=== PATIENT | female | born 1965 | race Caucasian/White ===

== ENCOUNTER 2023-03-09 19:57 | Outpatient (OUT) | payer BC, SELFPAY ==
--- NOTE | 2023-03-09 20:01 | US_ITS ---
[address] [address] Patient Name: JOSE ALBERTO SALEEM MRN: [id number] date: 1965 Sex: F Assigned Patient Location: US Current Patient Location: US Accession/Order Number: [id number] Exam Date: 03/09/2023 20:02 Report Date: 03/12/2023 15:21 At the request of: ASHLEY GRIGSBY Procedure: US pelvis transvaginal EXAMINATION: US pelvis transvaginal HISTORY: R10.2 PELVIC AND PERINEAL PAIN COMPARISON: Ultrasound pelvis 03/24/2015 TECHNIQUE: Transabdominal and/or transvaginal sonographic examination was performed as indicated by examination type. FINDINGS: UTERUS: Heterogeneous lobular appearance of the uterus, likely multiple leiomyomas. Several prominent calcifications within the myometrium. Uterus size: 5.9 x 3.8 x 4.9 cm ENDOMETRIUM: Normal homogeneous appearance. Endometrial thickness: 7 mm RIGHT OVARY: Normal size and appearance. Duplex Doppler demonstrates normal waveform and flow; resistive index 0.7. Ovary size: 2.9 x 1.3 x 1.6 cm LEFT OVARY: Not seen. No suspicious adnexal findings. CUL-DE-SAC: Unremarkable. No significant free fluid. BLADDER: Unremarkable. OTHER: None. IMPRESSION: 1. Heterogeneous lobular uterus containing calcifications, likely multiple leiomyomas. Findings are slightly progressed compared to 2014. Electronically authenticated by: RONAN TORIBIO Date: 03/12/2023 15:21
== END 2023-03-09 19:58 ==
LOC: US 19:58
PROVIDERS: PCP Family Medicine; Visit Provider Family Medicine
DX: R10.2 Pelvic and perineal pain (principal); N85.8 Other specified noninflammatory disorders of uterus
CPT/HCPCS: 76830

== ENCOUNTER 2023-11-13 11:45 | Outpatient (OUT) | payer BC, SELFPAY ==
[2023-11-13 12:36] LABS: Basophils Percent Auto 0.6 % (0.2-2.0); Eosinophils Absolute Auto 0.2 10^3/uL (0.0-0.7); Eosinophils Percent Auto 3.9 % (0.9-7.0); Hematocrit 46.2 % (36.0-48.0); Hemoglobin 14.7 g/dL (12.0-16.0); Immature Granulocytes Abs Auto 0.01 10^3/uL (0.00-0.03); Immature Granulocytes Pct Auto 0.2 % (0.0-0.5); Lymphocytes Absolute Auto 1.4 10^3/uL (1.2-3.8); Lymphocytes Percent Auto 29.2 % (20.5-60.0); Mean Corpuscular HGB Conc 31.8 g/dL (29.9-35.2); Mean Corpuscular Volume 94.3 fL (81.0-99.0); Mean Platelet Volume 9.5 fL (9.5-13.5); Monocytes Absolute Auto 0.5 10^3/uL (0.3-0.8); Monocytes Percent Auto 11.2 % (1.7-12.0); Neutrophils Absolute Auto 2.6 10^3/uL (1.4-6.5); Neutrophils Percent Auto 54.9 % (43.0-75.0); Platelet Count 192 10^3/uL (150-450); Red Cell Distribution Width 12.4 % (11.0-15.0); White Blood Count 4.7 10^3/uL (4.0-11.0)
[2023-11-13 12:42] LABS: Bilirubin Urine NEGATIVE (NEGATIVE); Blood Urine NEGATIVE (NEGATIVE); Clarity Urine CLEAR (CLEAR); Color Urine LT. YELLOW (YELLOW); Glucose Urine UA NEGATIVE (NEGATIVE); Ketones Urine TRACE mg/dL (NEGATIVE); Leukocyte Esterase Urine LARGE (NEGATIVE); Nitrite Urine NEGATIVE (NEGATIVE); Protein Urine NEGATIVE (NEG/TRACE); Specific Gravity Urine 1.015 (1.005-1.025); Urobilinogen Urine 0.2 EU/dL (0.2-1.0)
[2023-11-13 12:51] LABS: Bacteria Urine TRACE #/HPF (NONE SEEN)
[2023-11-13 12:52] LABS: Mucus Urine NONE SEEN (NONE SEEN); Squamous Epithelial Cell Urine FEW #/LPF (NONE/RARE)
[2023-11-13 12:53] LABS: Cast Seen? NONE SEEN #/LPF (NONE SEEN); Crystals Seen? None Seen #/HPF (None Seen); Urine Culture Indicated ALREADY ORDERED
[2023-11-13 13:31] LABS: Estimated Average Glucose 97 mg/dL
[2023-11-13 14:03] LABS: Alanine Aminotransferase 95 U/L (14-59); Albumin Globulin Ratio 1.1; Albumin Level 3.9 g/dL (3.4-5.0); Alkaline Phosphatase 89 U/L (46-116); Anion Gap 10.4; Aspartate Amino Transferase 52 U/L (15-37); BUN Creatinine Ratio 29.7; Bilirubin Total 0.4 mg/dL (0.2-1.0); Calcium 9.4 mg/dL (8.5-10.1); Carbon Dioxide 33.3 mmol/L (21.0-32.0); Chloride 104 mmol/L (98-107); Chol HDL Ratio 2.8; Cholesterol 147 mg/dL (<=200); Estimated GFR (African America >60 (>=60); Estimated GFR (Non-African Ame >60 (>=60); Free T3 2.98 pg/mL (2.18-3.98); Globulin 3.5 g/dL; Glucose 92 mg/dL (74-106); HDL Cholesterol 53 mg/dL (40-60); Potassium 3.7 mmol/L (3.5-5.1); Sodium 144 mmol/L (136-145); Thyroid Stimulating Hormone 2.634 uIU/mL (0.358-3.740); Total Protein 7.4 g/dL (6.4-8.2); Triglycerides 196 mg/dL (<=150); VLDL CHOLESTEROL 39.2 mg/dL
[2023-11-14 11:08] LABS: Insulin 16.9 uIU/mL (2.6-24.9)
== END 2023-11-13 11:46 | disposition home or self-care (01) ==
LOC: LAB 11:47
PROVIDERS: PCP Family Medicine; Visit Provider Family Medicine
DX: R10.9 Unspecified abdominal pain (principal); I10 Essential (primary) hypertension; K21.9 Gastro-esophageal reflux disease without esophagitis; E78.5 Hyperlipidemia, unspecified; I25.10 Atherosclerotic heart disease of native coronary artery without angina pectoris; R73.9 Hyperglycemia, unspecified; D64.9 Anemia, unspecified; E55.9 Vitamin D deficiency, unspecified
CPT/HCPCS: 36415; 80053; 80061; 81001; 82306; 83036; 83525; 83540; 84436; 84443; 84481; 85025; 87086

== ENCOUNTER 2024-01-19 11:29 | Outpatient (OUT) | payer BC, SELFPAY ==
--- OUTSIDE RECORDS SUMMARY | 2024-01-19 11:35 | XMS_ITS | CCD ---
Author Organization [facility] Care Team Providers Care Biodiesel Process Control Technician Name Role Phone UNKNOWN, PROVIDER Unavailable Unavailable ASHLEY DEJESUS Unavailable Unavailable UNKNOWN, PROVIDER Unavailable Unavailable ASHLEY DEJESUS Unavailable Unavailable Ashlye Dejesus Primary Care Provider [phone] Ashley Dejesus Unavailable Unavailable Unavailable Ashley Dejesus MD Primary Care Provider [phone] Unavailable Unavailable Ashley Dejesus Primary Care Physician DR RAMANDEEP GARIBAY Admitting Unavailclaire GARIBYA, DR RAMANDEEP Orozco Attending Unavailclaire DEJESUS, DR RAMIREZ Primary Care Unavailable KELLY, DR RAMANDEEP Orozco Consulting Unavailclaire DEJESUS, DR RAMIREZ Primary Care Unavailable DR ASHLEY DEJESUS Admitting Unavailable ANJELICA, DR RAMIREZ Attending Unavailable DR ASHLEY DEJESUS Consulting Unavailable ZIEBER, DR RONAN Guzman Consulting Unavailable PHANI HUERTA Consulting Unavailable HAYES, INGA Consulting Unavailable MISC, DR MORALES Admitting Unavailable MISC, DR MORALES Attending Unavailable DR ASHLEY DEJESUS Primary Care Unavailable DR ASHLEY DEJESUS Consulting Unavailable DR ASHLEY DEJESUS Admitting Unavailable DR ASHLEY DEJESUS Attending Unavailable DR ASHLEY DEJESUS Primary Care Unavailable DR ASHLEY DEJESUS Consulting Unavailable ANJELICA, DR RAMIREZ Admitting Unavailable ANJELICA, DR RAMIREZ Attending Unavailable DR ASHLEY DEJESUS Primary Care Unavailable DR ASHLEY DEJESUS Consulting Unavailable MD Ashley Dejesus Primary Care Provider [phone] MD Evert Bruno Attending Provider Evert Bruno Unavailable MD Ashley Dejesus Primary Care Provider [phone] MD Evert Bruno Attending Provider Asaad, Imad Attending Unavailable Asaad, Imad Admitting Unavailable HoDeacon jaralas M Primary Care Unavailable Asaad, Imad Attending Unavailable Asaad, Imad Admitting Unavailable HoAshley jara Primary Care Unavailable Asaad, Imad Attending Unavailable Asaad, Imad Admitting Unavailable HoAshley jara M Primary Care Unavailable Asaad, Imad Attending Unavailable Ashley Dejesus Primary Care Unavailable Asaad, Imad Admitting Unavailable Ashley Dejesus MD Primary Care Provider [phone] GABY CHAHAL Admitting Unavail able GABY CHAHAL Attending Unavail able ASHLEY DEJESUS Primary Care Unavailable ASHLEY DEJESUS Primary Care Unavailable Ashley Dejesus MD Primary Care Provider [phone] RAMANDEEP GARIBAY Attending Unavailable ASHLEY DEJESUS Primary Care Unavailable ALINA JAVIER Attending Unavailable JENNIFER MARTINO Attending Unavailable STEPHANIE BERGER Attending Unavailable ASHLEY DEJESUS Referring Unavailable ASHLEY DEJESUS Primary Care Unavailable Allergies Allergy Classification Reported Allergen(s) Allergy Type Date of Onset Reaction(s) Facility (20 sources) Baclofen; 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: [Baclofen TABS] Drug Allergy 017 Other (See Comments), Shortness of breath [place] (14 sources) Latex; 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: [LATEX] Propensity to adverse reactions to drug 006 Anaphylaxis, Shortness Of Breath, Anaphylaxis (disorder) [place] (9 sources) Penicillins; 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: [penicillins] Propensity to adverse reactions to drug 006 Hives, Anaphylaxis (disorder) [place] (3 sources) rosuvastatin Drug Allergy 019 [place] (19 sources) Sulfamethoxazole / Trimethoprim; 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: [Bactrim TABS] Drug Allergy 019 Hives [place] (11 sources) natural latex rubber Allergy to substance (finding) Shortness of breath [facility] 250 DO Work Phone: (11 sources) Penicillins; 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: [Penicillins] Allergy to drug (finding) Rash [facility] 250 DO Work Phone: (13 sources) rosuvastatin; 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: [Crestor TABS] Drug Allergy 023 Elevated liver enzymes level (finding), Other [facility] (13 sources) Sulfonamides (Antibiotic); 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: [Sulfa Drugs] Allergy to drug (finding) [facility] (7 sources) levoFLOXacin; 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: [levofloxacin] Drug Allergy 017 Other (See Comments), Candidiasis (disorder) [employer] Work Phone: (3 sources) Phenazopyridine; 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: [PHENAZOPYRIDINE HCL] Drug Allergy [employer] Work Phone: (2 sources) Simvastatin Drug Allergy 006 [employer] Phone: (2 sources) Sulfonamides (Antibiotic) Propensity to adverse reactions to drug 022 Other (See Comments) [employer] (3 sources) Tobramycin; 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: [tobramycin] Drug Allergy 023 Eruption of skin (disorder) [facility] (1 source) Baclofen Drug Allergy [facility] (1 source) Latex Drug allergy (disorder) [facility] (5 sources) levoFLOXacin; 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: [Levaquin] Drug Allergy thrush [facility] (1 source) Penicillins Drug allergy (disorder) [facility] (1 source) rosuvastatin Drug Allergy [facility] (1 source) Sulfonamides (Antibiotic) Drug allergy (disorder) [facility] (7 sources) rosuvastatin; 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: [rosuvastatin] Drug Allergy 017 Gastrointestinal Upset [facility] (4 sources) Sulfamethoxazole; 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: [sulfamethoxazole] Drug Allergy [facility] (5 sources) Trimethoprim; 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: [trimethoprim] Drug Allergy 023 [facility] (4 sources) Fenofibrate Drug Allergy 023 ([place]) [facility] (3 sources) Penicillin Drug Allergy ([place]) 08/08/2011 [employer] Other (4 sources) Substance with sulfonamide structure and antibacterial mechanism of action (substance) Drug allergy 023 Shortness of breath [employer] Other (1 source) Baclofen Drug Allergy 023 [facility] Repository (1 source) Latex Drug allergy (disorder) [facility] (1 source) levoFLOXacin Drug Allergy 023 [facility] (1 source) Penicillins Drug allergy (disorder) 023 [facility] (2 sources) Penicillins Propensity to adverse reactions to drug Hives, Rash [facility] ([facility] Tobramycin Drug Allergy 023 Rash [facility] (2 sources) Sulfonamides (Antibiotic); 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: [SULFA (SULFONAMIDE ANTIBIOTICS)] Propensity to adverse reactions to drug (disorder) [facility] 3 Repository (1 source) Fenofibrate; 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: [FENOFIBRATE MICRONIZED] Drug Allergy 009 [facility] Repository Medications Current Medications Medication Drug Class(es) Dates Sig (Normalized) Sig (Original) atorvastatin 20 mg oral tablet (18 sources) HMG-CoA Reductase Inhibitor Start: 10-27-2019 take 1 tablet by mouth once daily atorvastatin (Lipitor) 20 mg tablet Take 1 tablet (20 mg) by mouth once daily. 0 12/11/2020 Active take 1 tablet by mouth at bedtim e Lipitor 40 MG 1 tablet Orally at hs for 30 day(s) Active Bariatric Multivitamins with 45 mg Iron (1 source) Start: 06-02-2022 Bariatric Mult ivitamins with 45 mg Iron Oral, Daily, Refill(s) 0 Start Date: 06/02/22 Status: Ordered Calcium Carbonate (6 sources) take 1 tablet by mouth once daily calcium carbonate (CALCIUM 500 ORAL) Take 1 tablet by mouth once daily. 0 Active take 1 tablet by gavin th three times daily at mealtime calcium carbonate 1500 (600 Ca) MG TABS tablet Take 500 mg by mouth 3 times daily (with meals) 0 Active take 1 tablet by mouth every twe lve hours Calcium 600 MG 1 tablet with meals Orally Twice a day for 30 day(s) Active calcium chloride 0.0014 meq/ml / potassium chloride 0.004 meq/ml / sodium chloride 0.103 meq/ml / sodium lactate 0.028 meq/ml injectable solution (1 source) Start: 06-18-2023 lactated ringe rs IV soln infusion cevimeline 30 mg oral capsule (19 sources) Cholinergic Receptor Agonist Start: 11-03-2020 take 1 capsule by mouth three times daily Cevimeline HCl - 30 MG Oral Capsule TAKE 1 CAPSULE 3 TIMES DAILY. Quantity: 0 Refills: 0 Ordered: 03-Nov-2020 DO Start : 03-Nov-2020 Active Start: 10-27-2019 take 1 mg by mouth t hree times daily cevimeline See Instructions, mg Oral TID, Refills(s) 0 Start Date: 10/27/19 Status: Ordered Start: 04-17-2018 take 1 capsule by [facility] four times daily cevimeline (Evoxac) 30 mg capsule Take by mouth 4 times a day. 0 11/03/2020 Active take 25 mg by mouth three times daily CEVIMELINE HCL PO Take 25 mg by mouth 3 times daily 0 Active citalopram 10 mg oral tablet (5 sources) Serotonin Reuptake Inhibitor Start: 11-01-2022 take 10 mg by mouth once daily Citalopram Active 10 MG PO Daily November 01, 2022 1:00am take 1 tablet by mouth once milan y citalopram (CeleXA) 20 mg tablet Take 1 tablet (20 mg) by mouth once daily. 0 Active take 2 tablets by mouth once sudeep ly citalopram (CELEXA) 10 MG tablet Take 2 tablets by mouth daily 0 Active diclofenac sodium 0.03 mg/mg topical gel (14 sources) Nonsteroidal Anti-inflammatory Drug Start: 12-28-2020 diclofenac sodium 3 % gel twice a day. 0 12/28/2020 Active Start: 12-28-2020 Diclofenac Sod ium 3 % External Gel APPLY SPARINGLY TO THE AFFECTED AREA(S) TWICE DAILY. Quantity: 0 Refills: 0 Ordered: 28-Dec-2020 DO Start : 28-Dec-2020 Active docusate sodium 100 mg oral capsule (12 sources) take 1 capsule by mouth twice daily docusate sodium (Colace) 100 mg capsule Take 1 capsule (100 mg) by mouth 2 times a day. 0 Active ergocalciferol 1.25 mg oral capsule (3 sources) Provitamin D2 Compound Start: 05-26-20 take 1 capsule by mouth two times weekly Vitamin D (Ergocalciferol) 92001 UNIT 1 capsule Orally TWICE a Week for 90 day(s) May, Active fluticasone propionate 0.05 mg/actuat metered dose nasal spray (16 sources) Corticosteroid Start: 11-01-19 Fluticasone Propionate Active 1 SPRAY INTRANASAL Daily November 01, 2022 1:00am Start: 11-26-2020 take 1 spray(s) nasa l route twice daily fluticasone (Flonase) 50 mcg/actuation nasal spray Administer 1 spray into affected nostril(s) 2 times a day. 0 11/26/2020 Active Start: 11-26-2020 take 1 spray(s) nasa l route twice daily Fluticasone Propionate 50 MCG/ACT Nasal Suspension USE 1 SPRAY IN EACH NOSTRIL TWICE DAILY. Quantity: 0 Refills: 0 Ordered: 26-Nov-2020 DO Start : 26-Nov-2020 Active Start: 04-30-2020 fluticasone 0. 05 mg/inh Nasal [place] Refill(s) 0 Start Date: 04/30/20 Status: Ordered furosemide 40 mg oral tablet (3 sources) Loop Diuretic take 1 tablet by mouth every twenty-four hours Lasix 40 MG 1 tablet Orally Once a day for 30 day(s) Active hydroCHLOROthiazide 12.5 mg oral tablet (16 sources) Thiazide Diuretic Start: 2022 take 6.26 mg by mouth once daily Hydrochlorothiazide Active 6.26 MG PO Daily November 01, 2022 1:00am Start: 12-11-2020 take 0.5 tablet by m outh once daily hydroCHLOROthiazide (HYDRODiuril) 12.5 mg tablet Take 0.5 tablets (6.25 mg) by mouth once daily. 0 12/11/2020 Active Start: 12-11-2020 take 1 tablet by gavin th once daily hydrochlorothiazide 12.5 mg Tab 12.5 mg = 1 tab(s), Oral, Daily, # 90 tab(s), Refills(s) 3, Pharmacy: [facility], 160, cm, 05/27/21 8:19:00 EDT, Height/Length Dosing, 61, kg, 05/27/21 8:19:00 EDT, Weight Dosing Start Date: 10/07/21 Status: Ordered ketorolac tromethamine 10 mg oral tablet (1 source) Nonsteroidal Anti-inflammatory Drug, Cyclooxygenase Inhibitor Start: 06-18-2023 End: 06-17-2024 take 1 tablet by mouth every six hours as needed for pain ketorolac (TORADOL) 10 MG tablet Take 1 tablet by mouth every 6 hours as needed for Pain 10 tablet 0 06/18/2023 06/17/2024 Active lisinopril 2.5 mg oral tablet (3 sources) Angiotensin Converting Enzyme Inhibitor take 1 tablet by mouth every twenty-four hours Lisinopril 2.5 MG 1 tablet Orally Once a day for 30 day(s) Active metFORMIN hydrochloride 500 mg oral tablet (3 sources) Biguanide Start: 11-14-2011 take 1 tablet by mouth twice daily Glucophage XR 500 MG 1 tablet Orally twice a days for 90 days Nov, Active 2 ml metoclopramide 5 mg/ml prefilled syringe (1 source) Dopamine-2 Receptor Antagonist Start: 06-18-2023 End: 06-19-2023 10 mg, IntraVENous, ONCE PRN, 1 dose, Starting on Sun06/18/23 at 1449, Until Sun06/19/23 at 1449, Nausea Secondary antiemetic therapy. PACU only mometasone furoate 1 mg/ml topical cream (12 sources) Corticosteroid Start: 12-25-2020 mometasone (Elocon) 0.1 % cream twice a day. 0 12/25/2020 Active Start: 12-25-2020 Mometasone Fur oate 0.1 % External Cream APPLY SPARINGLY TO AFFECTED AREAS TWICE DAILY.(AM AND PM). Quantity: 0 Refills: 0 Ordered: 25-Dec-2020 DO Start : 25-Dec-2020 Active montelukast 10 mg oral tablet (3 sources) Leukotriene Receptor Antagonist take 1 tablet by mouth every twenty-four hours Singulair 10 MG 1 tablet in the evening Orally Once a day for 30 day(s) Active Multi Vitamin+ (1 source) Start: 0 Multi Vitamin+ Refill(s) 0 Start Date: 10/27/19 Status: Ordered Multiple Vitamin (MVI, BARIATRIC ADVANTAGE VITABAND, CHEW TAB) (1 source) take 1 tablet by mouth once daily Multiple Vitamin (MVI, BARIATRIC ADVANTAGE VITABAND, CHEW TAB) Take 1 tablet by mouth daily 0 Active Multiple Vitamins-Minerals (PRESERVISION AREDS 2 PO) (1 source) Multiple Vitamins-Minerals (PRESERVISION AREDS 2 PO) Take by mouth 0 Active multivit-min/ferrous fumarate (MULTI VITAMIN ORAL) (1 source) take 1 tablet by mouth twice daily multivit-min/ferr ous fumarate (MULTI VITAMIN ORAL) Take 1 tablet by mouth 2 times a day. 0 Active Qyxurintpfgk-Xwe-Ryr n-Fa-Vit K (Bariatric Multivitamins) 45 mg iron- 800 mcg-120 mcg Capsule (3 sources) Start: 3 take 1 capsule by mouth twice daily Multivitamin-Min- Iron-Fa-Vit K (Bariatric Multivitamins) 45 mg iron- 800 mcg-120 mcg Capsule Active 1 CAP PO Twice daily November 01, 2022 1:00am Start: 11-01-2022 take 1 capsule by [facility] twice daily Sksafwnmrmoo-Pjl-Qkpc-Fa-Vit K (Bariatri c Multivitamins) 45 mg iron- 800 mcg-120 mcg Capsule Active 1 CAP PO Twice daily November 01, 2022 12:00am Multivitamins (3 sources) Multivitamins Or ally daily Active NIFEdipine 60 mg oral tablet (3 sources) Dihydropyridine Calcium Channel Boom take 1 capsule by mouth once daily Procardia 60 mg 1 capsule Orally daily for 30 day(s) Active nitroglycerin 0.4 mg sublingual tablet (16 sources) Nitrate Vasodilator Start: 021 End: 023 nitroglycerin (Nitrostat) 0.4 mg SL tablet Indications: Atherosclerosis of coronary artery of [place] heart without angina pectoris, unspecified vessel or lesion type Place 1 tablet (0.4 mg) under the tongue every 5 minutes if needed for chest pain. 90 tablet 3 08/14/2023 Active Nitrostat 0.4 MG 1 tablet under the tongue Sublingual as directed for 30 day(s) Active nystatin 100 unt/mg topical powder (12 sources) Polyene Antifungal Start: 05-05-2020 nystatin (Nyamy) 100,000 unit/gram powder apply topically to affected area twice a day if needed 0 05/05/2020 Active omega-3 acid ethyl esters (shelter) 1000 mg oral capsule (3 sources) take 2 capsules by mouth every twelve hours Lovaza 1 GM 2 capsules Orally Twice a day for 30 day(s) Active 2 ml ondansetron 2 mg/ml injection (4 sources) Serotonin-3 Receptor Antagonist Start: 06-18-2023 End: 06-19-2023 4 mg, IntraVENous, ONCE PRN, 1 dose, Starting on Sun06/18/23 at 1449, Until Sun06/19/23 at 1449, Nausea Initial antiemetic therapy. PACU only Start: 04-17-2018 End: 04-22-2018 take 1 tablet by mouth every eight hours Ondansetron (Zofran Odt) 8 mg tablet,disintegrating Discontinued 8 MG PO Q8H 10 5 April 17, 2018 12:00am April 22, 2018 12:01am polyethylene glycol 3350 991964 mg / potassium chloride 2970 mg / sodium bicarbonate 6740 mg / sodium chloride 5860 mg / sodium sulfate 85536 mg powder for oral solution (3 sources) Osmotic Laxative Start: 10-24-2022 take 236 g by mouth once Golytely 236 GM as directed Orally the day prior to colonoscopy for 1 days Oct, Active prasugrel 10 mg oral tablet (3 sources) P2Y12 Platelet Inhibitor take 10 mg by mouth once daily effient 10 mg once a day po Active promethazine hydrochloride 25 mg oral tablet (6 sources) Phenothiazine Start: 11-01-2022 take 25 mg by mouth every four hours Promethazine Active 25 MG PO Q4H November 01, 2022 1:00am take 1 tablet by gavin th every twelve hours Promethazine HCl 25 MG 1 tablet as neede d Orally every 12 hrs Active RABEprazole sodium 20 mg delayed release oral tablet (20 sources) Proton Pump Inhibitor Start: 05-27-2021 take 1 mg by mouth once daily rabeprazole 20 mg oral enteric coated tablet mg tab(s), Oral, Daily, Refills(s) 0 Start Date: 05/27/21 Status: Ordered Start: 12-27-2020 RABEprazole So dium 20 MG Oral Tablet Delayed Release Quantity: 180 Refills: 0 Ordered: 27-Dec-2020 DO Start : 27-Dec-2020 Complete Start: 04-17-2018 take 20 mg by mouth twice milan y Rabeprazole Active 20 MG PO Twice daily April 17, 2018 12:00am 5 ml sodium chloride 9 mg/ml injection (9 sources) Start: 06-18-2023 take 1 dose intravenously twice daily 5-40 mL, IntraVENous, EVERY 12 HOURS SCHEDULED (2 times per day), First dose on Sun06/18/23 at 2100, Until Discontinued For Line Patency: Peripheral IV = 5 mL; Midline or Central Line = 10 mL/lumen. If following IV push medication, administer flush at same rate as the IV push. Flush volume is determined by type of infusion therapy being given. For non-viscous solutions use: Peripheral IV = 5 mL Midline or Central Line = 10 mL/lumen For viscous solutions (i.e. blood components, parenteral nutrition, contrast media, or after obtaining blood sample) use: Peripheral IV = 10 mL Midline or Central Line = 20 mL/lumen Pre-op (day of surgery) Start: 06-18-2023 take 1 dose intraven ously twice daily 5-40 mL, IntraVENous, EVERY 12 HOURS SCHEDULED (2 times per day), First dose on Sun06/18/23 at 2100, Until Discontinued For Line Patency: Peripheral IV = 5 mL; Midline or Central Line = 10 mL/lumen. If following IV push medication, administer flush at same rate as the IV push. Flush volume is determined by type of infusion therapy being given. For non-viscous solutions use: Peripheral IV = 5 mL Midline or Central Line = 10 mL/lumen For viscous solutions (i.e. blood components, parenteral nutrition, contrast media, or after obtaining blood sample) use: Peripheral IV = 10 mL Midline or Central Line = 20 mL/lumen PACU only Start: 06-18-2023 sodium chlorid e flush 0.9 % injection 5-40 mL Start: 06-18-2023 IntraVENous, a t 5-250 mL/hr, PRN, if patient receiving piggyback infusions and maintenance fluids are not ordered OR KVO fluids to protect IV site / prevent frequent line interruptions/ long duration, Starting on Sun06/18/23 at 1449 For piggyback infusion, administer at same rate as piggyback for a total of 25 mL. Enter 25 mL into dose field and piggyback rate into rate field of order. If piggyback is infusing at a rate less than 100 mL/hr, enter 25 mL into dose field and 100 mL/hr into rate field of order. For KVO fluids, enter rate of 20 mL/hr or less into rate field of order. PACU only Start: 06-18-2023 take 5-40 mL intrave nously once as needed 5-40 mL, IntraVENous, PRN, Starting on Sun06/18/23 at 1449, Until Discontinued, Line Care, After every IV line use For Line Patency: Peripheral IV = 5 mL; Midline or Central Line = 10 mL/lumen. If following IV push medication, administer flush at same rate as the IV push. Flush volume is determined by type of infusion therapy being given. For non-viscous solutions use: Peripheral IV = 5 mL Midline or Central Line = 10 mL/lumen For viscous solutions (i.e. blood components, parenteral nutrition, contrast media, or after obtaining blood sample) use: Peripheral IV = 10 mL Midline or Central Line = 20 mL/lumen PACU only Start: 06-18-2023 0.9 % sodium c hloride infusion Start: 06-18-2023 sodium chlorid e flush 0.9 % injection 5-40 mL tamsulosin hydrochloride 0.4 mg oral capsule (19 sources) alpha-Adrenergic Boom Start: 10-26-2020 End: 03-09-2023 take 1 capsule by mouth twice daily Flomax 0.4 mg Cap 0.4 mg = 1 cap(s), Oral, BID, X 90 day(s), # 180 cap(s), Refills(s) 3, Pharmacy: [facility], 160, cm, 05/27/21 8:19:00 EDT, Height/Length Dosing, 61, kg, 05/27/21 8:19:00 EDT, Weight Dosing Start Date: 03/14/22 Stop Date: 03/09/23 Status: Ordered Start: 04-17-2018 take 1 capsule by mo [facility] once daily tamsulosin (Flomax) 0.4 mg 24 hr capsule Take 1 capsule (0.4 mg) by mouth once daily. 0 10/26/2020 Active traMADol hydrochloride 50 mg oral tablet (6 sources) Opioid Agonist Start: 11-01-2022 take 50 mg by mouth three times daily Tramadol Active 50 MG PO Three times daily November 01, 2022 1:00am take 1 tablet by [facility] every twenty-four hours traMADol HCl 50 MG 1 tablet as needed Orally Once a day Active ubidecarenone 200 mg oral capsule (3 sources) take 1 capsule by mouth every twenty-four hours Coenzyme Q-10 200 MG 1 capsule with a meal Orally Once a day for 30 day(s) Active vit C/E/Zn/coppr/lutein/zeax an (PRESERVISION AREDS-2 ORAL) (1 source) vit C/E/Zn/coppr/lutei n/zeaxan (PRESERVISION AREDS-2 ORAL) Take by mouth twice a day. 0 Active Vitamin B Complex 1,000 (3 sources) Start: 05-25-2011 Vitamin B Complex 1,000 Orally daily May, Active Vitamin B-12 1000 MCG (2 sources) take 1 tablet by mouth once daily Vitamin B-12 1000 MCG 1 tablet Orally Once a day for 30 day(s) Active vitamin b12 1 mg oral tablet (1 source) Vitamin B12 take 1 tablet by mouth every twenty-four hours Vitamin B-12 1000 MCG 1 tablet Orally Once a day for 30 day(s) Active Zyrtec Hives Relief 10 MG (3 sources) take 1 tablet by mouth once daily Zyrtec Hives Relief 10 MG 1 tablet Orally Once a day for 30 day(s) Active Completed/Discontinued Medications Medication Drug Class(es) Dates Sig (Normalized) Sig (Original) acetaminophen 325 mg oral tablet (1 source) Start: 06-18-2023 End: 06-18-2023 acetaminophen (TYLENOL) tablet 650 mg Start: 06-18-2023 End: 06-18-2023 acetaminophen (TYLENOL) tabl et 650 mg acetaminophen 325 mg / oxyCODONE hydrochloride 5 mg oral tablet (6 sources) Opioid Agonist Start: 04-24-2018 End: 04-29-2018 take 1 tablet by mouth every four to six hours Oxycodone-Acetaminophen Discontinued 1 TAB PO EVERY 4-6 HOURS April 24, 2018 April 29, 2018 12:01am Start: 04-17-2018 take 2 tablets by mo uth every four hours Oxycodone-Acetaminophen (Percocet) 5-325 mg tablet Active 2 TAB PO Q4H April 17, 2018 ascorbic acid 226 mg / beta carotene 83109 unt / cuprous oxide 0.8 mg / dl-alpha tocopheryl acetate 200 unt / zinc oxide 34.8 mg oral capsule (11 sources) Vitamin C take 2 capsules by mouth twice daily PreserVision AREDS Oral Capsule TAKE 2 CAPSULE Twice daily Quantity: 0 Refills: 0 Ordered: 17-Aug-2021 DO Active aspirin 81 mg delayed release oral tablet (20 sources) Platelet Aggregation Inhibitor, Nonsteroidal Anti-inflammatory Drug Start: 0 take 1 tablet by mouth once daily Aspirin Low Dose 81 MG Oral Tablet Delayed Release take 1 tablet by mouth once daily Quantity: 90 Refills: 3 Ordered: 10-Oct-2022 Ramandeep Garibay DO Start : 05-Oct-2022 Active Start: 10-27-2019 aspirin 81 mg, Refills(s) 0 Start Date: 10/27/19 Status: Ordered take 1 tablet by gavin every twenty-four hours Aspirin 81 mg 1 tablet Orally Once a day for 30 day(s) Active ASPIRIN 81 PO Ta ke by mouth 0 Active Calcium (8 sources) Phosphate Binder, Calcium Calcium TABS TAKE 1 TABLET 3 times daily Quantity: 0 Refills: 0 Ordered: 15-Aug-2022 DO Active carvedilol 6.25 mg oral tablet (8 sources) alpha-Adrenergic Boom, beta-Adrenergic Boom Start: 11-03-2020 Carvedilol 6.25 MG Oral Tablet Quantity: 180 Refills: 0 Ordered: 03-Nov-2020 DO Start : 03-Nov-2020 Complete Start: 04-17-2018 End: 11-01-2022 take 25 mg by mouth twice daily Carvedilol Discontinue d 25 MG PO Twice daily April 17, 2018 12:00am November 01, 2022 11:47am take 1 tablet by gvain th every twelve hours Carvedilol 12.5 MG 1 tablet with food Orally Twice a day for 30 day(s) Active cephalexin 500 mg oral capsule (3 sources) Cephalosporin Antibacterial Start: 04-17-2018 End: 04-24-2018 take 1 capsule by mouth twice daily Cephalexin (Keflex) 500 mg capsule Discontinued 500 MG PO Twice daily 14 April 17, 2018 12:00am April 24, 2018 12:01am dimenhyDRINATE 50 mg oral tablet (1 source) Start: 06-18-2023 End: 06-18-2023 dimenhyDRINATE (DRAMAMINE) tablet 50 mg Start: 06-18-2023 End: 06-18-2023 dimenhyDRINATE (DRAMAMINE) t ablet 50 mg doxycycline hyclate 100 mg oral tablet (1 source) Tetracycline-class Drug Start: 10-18-2020 take 1 tablet by mouth twice daily, then take 1 tablet by mouth once daily Doxycycline Hyclate 100 MG Oral Tablet take 1 tablet by mouth twice a day for 14 days then 1 tablet once daily for 14 days Quantity: 42 Refills: 0 Ordered: 18-Oct-2020 DO Start : 18-Oct-2020 Complete fenofibric acid 135 mg delayed release oral capsule (3 sources) Peroxisome Proliferator Receptor alpha Agonist take 1 capsule by mouth every twenty-four hours Trilipix 135 MG 1 capsule Orally Once a day for 30 day(s) Not-Taking 2 ml fentaNYL 0.05 mg/ml injection (2 sources) Opioid Agonist Start: 06-18-2023 50 mcg, IntraVENous, EVERY 5 MIN PRN, 2 doses, Starting on 06/18/23 at 1449, Until Discontinued, Pain Severe (7-10) For Phase I. If Phase II oral narcotics have been administered in the last 60 minutes, do not administer IV narcotics unless specifically approved by provider. PACU only Start: 06-18-2023 25 mcg, IntraV ENous, EVERY 5 MIN PRN, 2 doses, Starting on 06/18/23 at 1449, Until Discontinued, Pain Moderate (4-6) For Phase I. If Phase II oral narcotics have been administered in the last 60 minutes, do not administer IV narcotics unless specifically approved by provider. PACU only fluconazole 100 mg oral tablet (1 source) Azole Antifungal Start: 11-17-2020 take 1 tablet by mouth once daily Fluconazole 100 MG Oral Tablet take 1 tablet by mouth once daily Quantity: 10 Refills: 0 Ordered: 17-Nov-2020 DO Start : 17-Nov-2020 Complete hydrocortisone 10 mg/ml / neomycin 3.5 mg/ml / polymyxin b 62126 unt/ml ophthalmic suspension (3 sources) Aminoglycoside Antibacterial, Polymyxin-class Antibacterial, Corticosteroid Start: 06-13-2021 take 2 drop(s) into the eye(s) four times daily Neomycin-Polymyxin- HC 3.5-48139-4 Ophthalmic Suspension instill 2 drops INTO AFFECTED EYE four times a day Quantity: 8 Refills: 0 Ordered: 14-Jun-2021 DO Start : 13-Jun-2021 Active levoFLOXacin 750 mg oral tablet (1 source) Quinolone Antimicrobial Start: 11-17-2020 take 1 tablet by mouth once daily levoFLOXacin 750 MG Oral Tablet take 1 tablet by mouth once daily for 10 days Quantity: 10 Refills: 0 Ordered: 17-Nov-2020 DO Start : 17-Nov-2020 Complete Multi Vitamin Oral Tablet (11 sources) take 1 tablet by mouth twice daily Multi Vitamin Oral Tablet Take 1 tablet twice daily Quantity: 0 Refills: 0 Ordered: 17-Aug-2021 DO Active nitrofurantoin, macrocrystals 25 mg / nitrofurantoin, monohydrate 75 mg oral capsule (3 sources) Nitrofuran Antibacterial Start: 04-24-2018 End: 11-01-2022 take 1 capsule by mouth twice daily at mealtime Nitrofurantoin Monohyd/M-Cryst (Macrobid) 100 mg capsule Discontinued 100 MG PO Twice daily April 24, 2018 12:00am November 01, 2022 11:47am must administer with a meal/food oxyCODONE hydrochloride 5 mg oral tablet (1 source) Opioid Agonist Start: 06-18-2023 End: 06-18-2023 take 1 dose by mouth once 5 mg, Oral, ONCE PRN, 1 dose, Starting on Sun06/18/23 at 1449, Until Sun06/18/23 at 1505, Pain Moderate (4-6), Pain Severe (7-10) PHASE II PACU only predniSONE 10 mg oral tablet (1 source) Start: 10-18-2020 take 5 tablets by mouth once daily, then take 4 tablets by mouth once daily predniSONE 10 MG Oral Tablet take 5 tablets by mouth once daily X2 DAYS, 4 tablets daily X2 DA... (REFER TO PRESCRIPTION NOTES). Quantity: 30 Refills: 0 Ordered: 18-Oct-2020 DO Start : 18-Oct-2020 Complete 12 hr ranolazine 500 mg extended release oral tablet (6 sources) Anti-anginal Start: 04-17-2018 End: 11-01-2022 take 500 mg by mouth twice daily Ranolazine Discontinued 500 MG PO Twice daily April 17, 2018 12:00am November 01, 2022 11:47am take 1 tablet by mouth every twe lve hours Ranexa 500 MG 1 tablet Orally every 12 hours for 30 day(s) Active spironolactone 25 mg oral tablet (3 sources) Aldosterone Antagonist take 1 tablet by mouth once daily Spironolactone 25 MG one half tab Orally daily for 30 day(s) Not-Taking Versabase Cream (1 source) Start: 09-07-20 Versabase Cream Quantity: 15 Refills: 0 Ordered: 07-Sep-2020 DO Start : 07-Sep-2020 Complete Problems Active Problems Problem Classification Problem Date Documented Da te Episodic/Chronic Abdominal pain (14 sources) Abdominal pain; 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: [Unspecified abdominal pain] Onset: 2 Episodic Biliary tract disease (4 sources) Choledochal cyst; 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 Calculus of urinary tract (4 sources) Kidney stone; 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: [Calculus of kidney] Onset: 2 Episodic Cardiac and circulatory congenital anomalies (12 sources) Ventricular septal defect; 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: [Ventricular septal defect] Onset: 3 08-09-2023 Chronic Cardiac dysrhythmias (12 sources) Paroxysmal supraventricular tachycardia; 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: [Paroxysmal supraventricular tachycardia] Onset: 3 08-09-2023 Chronic Coronary atherosclerosis and other heart disease (20 sources) Coronary atherosclerosis; 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: [Coronary atherosclerosis of [place] coronary artery] Onset: 2 Chronic Coronary atherosclerosis and other heart disease (2 sources) Presence of aortocoronary bypass graft; 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: [Presence of aortocoronary bypass graft] Onset: 3 Episodic Diabetes mellitus without complication (1 source) Diabetes mellitus without complication Onset: 7 Disorders of lipid metabolism (13 sources) Hyperlipidemia; 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: [Other and unspecified hyperlipidemia] Onset: 3 08-09-2023 Chronic Essential hypertension (16 sources) Benign essential hypertension; 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: [Benign essential hypertension] Onset: 2 08-14-2023 Chronic Genitourinary symptoms and ill-defined conditions (2 sources) Mixed incontinence; 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: [Incontinence] Onset: 2 Chronic Menopausal disorders (2 sources) Postmenopausal bleeding; 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: [Postmenopausal bleeding] Onset: 3 06-18-2023 Chronic Other aftercare (1 source) senior care (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; 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: [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 USE OF ASPIRIN] Onset: 3 Episodic Other aftercare (1 source) Other care home (current) drug therapy; 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: [OTH [facility] CURRENT DRUG THERAPY] Onset: 3 Episodic Other gastrointestinal disorders (1 source) Intestinal malabsorption, unspecified; 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: [INTESTINAL MALABSORPTION UNS] Onset: 2 Chronic Other gastrointestinal disorders (1 source) Bariatric surgery status; 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: [BARIATRIC SURGERY STATUS] Onset: 3 Episodic Other gastrointestinal disorders (3 sources) Constipation; 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: [Constipation, unspecified] Episodic Other gastrointestinal disorders (2 sources) Constipation, unspecified; 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: [Constipation, unspecified] Onset: 3 Episodic Other liver diseases (3 sources) Elevated liver enzymes level; 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: [Abnormal levels of other serum enzymes] Episodic Other liver diseases (2 sources) Abnormal levels of other serum enzymes; 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: [Abnormal levels of other serum enzymes] Onset: 3 Episodic Other nutritional; endocrine; and metabolic disorders (1 source) Hypervitaminosis D; 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: [HYPERVITAMINOSIS D] Onset: 2 Chronic Other nutritional; endocrine; and metabolic disorders (11 sources) Overweight in adulthood with body mass index of 25 or more but less than 30; 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: [Overweight] Episodic Other screening for suspected conditions (not mental disorders or infectious disease) (7 sources) Other specified abnormal findings of blood chemistry; 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: [Patient encounter status] Onset: 3 Episodic Other skin disorders (1 source) Epidermoid cyst; 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: [Epidermal cyst] 06-18-2023 Episodic Other skin disorders (1 source) Epidermal cyst; 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: [Epidermal cyst] Onset: 3 Episodic Other upper respiratory disease (1 source) Allergic rhinitis, unspecified; 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: [Allergic rhinitis, unspecified] Onset: 4 Chronic Pancreatic disorders (not diabetes) (5 sources) Idiopathic acute pancreatitis without necrosis or infection; 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: [Acute pancreatitis without necrosis or infection, unspecified] Onset: 3 Episodic Unclassified (1 source) Presence of aortocoronary bypass graft / Z95.1(ICD-9) Onset: 7 Unclassified (1 source) Athscl heart disease of [place] coronary artery w/o ang pctrs / I25.10(ICD-9) Onset: 7 Unclassified (1 source) Pure hypercholesterolemia, unspecified / E78.00(ICD-9) Onset: 7 Unclassified (2 sources) Encounter for preprocedural cardiovascular examination / Z01.810(ICD-9) Onset: 7 Unclassified (1 source) Old myocardial infarction / I25.2(ICD-9) Onset: 7 Unclassified (1 source) Coronary angioplasty status / Z98.61(ICD-9) Onset: 7 Unclassified (1 source) Cardiomyopathy, unspecified / I42.9(ICD-9) Onset: 7 Unclassified (1 source) Family history of diseases of the ms sys and connective tiss / Z82.69(ICD-9) Onset: 7 Unclassified (1 source) Family hx of ischem heart dis and oth dis of the circ sys / Z82.49(ICD-9) Onset: 7 Unclassified (1 source) Patient encounter status; 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: [Well female exam with routine gynecological exam] Unclassified (1 source) Drug therapy finding 04-30-2020 Unclassified (1 source) Finding of sensation of bladder 10-27-2019 Unclassified (1 source) CONTACT W/AND (SUSP) EXPOS COVID-19; 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: [CONTACT W/AND (SUSP) EXPOS COVID-19] Onset: 3 Unclassified (1 source) Other specified diseases of biliary tract; 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: [Other specified diseases of biliary tract] Onset: 3 Unclassified (1 source) Med Refill Onset: 4 Past or Other Problems Problem Classification Problem Date Documented Date Episodic/Chronic Diseases of mouth; excluding dental (1 source) Disturbances of salivary secretion; 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: [Disturbances of salivary secretion] Onset: 09-13-2021 Episodic Other upper respiratory disease (1 source) Other specified disorders of nose and nasal sinuses; 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: [Other specified disorders of nose and nasal sinuses] Onset: 03-20-2022 Episodic Unclassified (1 source) Encounter for preprocedural cardiovascular examination; 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: [Encounter for preprocedural cardiovascular examination] Onset: 08-29-2017 Unclassified (11 sources) Never smoked tobacco; 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: [Never a smoker] Results Test Name Value Interpretation Reference Range Facility Surgical Pathology Reporton 06-18-2023 Surgical Pathology Report (NOTE) Path Number: [id number] -- Diagnosis -- ENDOMETRIAL CURETTINGS: -BENIGN ENDOMETRIAL POLYP. Amparo Kim Electronically Signed Out ag/06/21/2023 Clinical Information Pre-op Diagnosis: POSTMENOPAUSAL BLEEDING, INCLUSION CYST Operative Findings: ENDOMETRIAL CURETTINGS Operation Performed: DILATATION AND CURETTAGE HYSTEROSCOPY, REMOVAL OF INCLUSION CYST OF BILATERAL LABIA tm Source of Specimen A: ENDOMETRIAL CURETTINGS Gross Description JOSE ALBERTO SALEEM ENDOMETRIAL CURETTINGS Received in formalin are dark red fragments, 2.5 x 1.5 x 0.3 cm in aggregate. Entirely 1cs. tm LRP/tb1:06/19/2023 Microscopic Description Microscopic examination performed. Processing Lab: [facility] [address] [place] [address] Interpretation Performed at [facility] [address] [place], [place] SURGICAL PATHOLOGY CONSULTATION Patient Name: SALEEMJOSE ALBERTO [facility] Rec: [id number] [facility] [employer] [employer] ANATOMIC PATHOLOGY [facility]. [place], [place] [address] Normal [facility] US NON OB TRANSVAGINALon US NON OB TRANSVAGINAL Table formatting from the original result was not included. UTERUS: Small, heterogenous appearing fibroid uterus.3 fibroids measured #1- 1.6 x 1.3 x 1.5 cm, mid uterus #2- 1.6 x 1.4 x 1.5 cm, mid uterus #3- 1.3 x 1.2 x 1.1 cm, mid uterus ENDO: measures 7.6 mm RT. OVARY: WNL, calcifications noted LT. OVARY: WNL, calcifications noted No free fluid Interpreted by: Gaby Tello DO Signed by: Gaby Tello DO 06/05/23 Final result Normal [facility] CHAY Antinuclear Antibodieson 12-12-2022 Antinuclear Abs, IFA Negative Normal . [facility] Comment on above: Order Comment: Reaso n for Exam Elevated liver function tests Result Comment: Nega tive <1:80 Borderline 1:80 Positive >1:80 ICAP nomenclature: AC-0 For more information about Hep-2 cell patterns use ANApatterns.org, the official website for the International Consensus on Antinuclear Antibody (CHAY) Patterns (ICAP). Performed at: - [facility] [id number] Family Law Mediator: Afshin Martinez PhD, Phone: [phone] Performed By: #### H AABT, SMAB, HCV RX PCR, HBSAG, CERULOP, HBCAB, ALPHA PHEN, IGG, MITOM2, HBSAB, CHAY, L-K MICRO #### [facility] , #### ABDIRASHID #### [facility] [address] [id number] Phenotyp anthony 12-12-2022 Alpha 1 Anti-Trypsin 172 mg/dL Normal 101-[address] [facility] Comment on above: Order Comment: Reaso n for Exam Elevated liver function tests Performed By: #### H AABT, SMAB, HCV RX PCR, HBSAG, CERULOP, HBCAB, ALPHA PHEN, IGG, MITOM2, HBSAB, CHAY, L-K MICRO #### [facility] , #### ABDIRASHID #### [address] Phenotype (P1) MM Normal . [facility] Comment on above: Order Comment: Reaso n for Exam Elevated liver function tests Result Comment: Phen otype Population A-1-AT Concentration* Incidence % % of MM (Typical Range) MM 86.5% 100% (96 - 189) MS 8.0% 86% (83 - 161) MZ 3.9% 61% (60 - 111) FM 0.4% 100% (93 - 191) SZ 0.3% 41% (42 - 75) SS 0.1% 64% (62 - 119) ZZ 0.05% 19% (16 - 38) FS 0.05% 70% (70 - 128) FZ Unknown 46% (44 - 88) FF Unknown Unknown *A-1-AT concentration in the homozygous MM phenotype is taken as the reference normal. Percent deficiency in each phenotype is reported relative to this reference. Ranges used to confirm phenotype. Performed at: [address] [id number] Family Law Mediator: Afshin Martinez PhD, Phone: [phone] Performed at: [address] [id number] Family Law Mediator: Toni Guidry MD, Phone: [phone] Performed By: #### H AABT, SMAB, HCV RX PCR, HBSAG, CERULOP, HBCAB, ALPHA PHEN, IGG, MITOM2, HBSAB, CHAY, L-K MICRO #### [facility] , #### ABDIRASHID #### [facility] [address] [place], [place] [id number] [facility] Ceruloplasminon 12-12-2022 Ceruloplasmin 30.6 mg/dL Normal 19.0-39.0 [facility] Comment on above: Order Comment: Reaso n for Exam Elevated liver function tests Performed By: #### H AABT, SMAB, HCV RX PCR, HBSAG, CERULOP, HBCAB, ALPHA PHEN, IGG, MITOM2, HBSAB, CHAY, L-K MICRO #### [facility] , #### ABDIRASHID #### [address] Ceruloplasmin 30.6 mg/dL 19.0-39.0 mg/dL [facility] [employer] Other Ferritinon 12-12-2022 Ferritin [Mass/Vol] 43.8 ng/mL Normal 11.0-306.8 [facility] Comment on above: Order Comment: Reaso n for Exam Elevated liver function tests Result Comment: PERF ORMED BY: [place] [address] PATHOLOGIST AUTOMOBILE TECHNICIAN JULISSA GA M.D. Performed By: #### H AABT, SMAB, HCV RX PCR, HBSAG, CERULOP, HBCAB, ALPHA PHEN, IGG, MITOM2, HBSAB, CHAY, L-K MICRO #### [facility] , #### ABDIRASHID #### [facility] [address] [place] [address] Ferritin [Mass/Vol] 43.6898291 ng/mL Normal 11.0 -306.8 ng/mL [facility] [employer] Other Hep C Ab wRfx to Qnt PCRon 0 12-12-2022 Hepatitis C Virus Antibody Non-Reactive Normal Non Reactive [facility] Comment on above: Order Comment: Reaso n for Exam Elevated liver function tests Performed By: #### H AABT, SMAB, HCV RX PCR, HBSAG, CERULOP, HBCAB, ALPHA PHEN, IGG, MITOM2, HBSAB, CHAY, L-K MICRO #### [facility] , #### ABDIRASHID #### [address] Interpretation Hepatitis C Normal . [facility] Comment on above: Order Comment: Reaso n for Exam Elevated liver function tests Result Comment: Not infected with HCV unless early or acute infection is suspected (which may be delayed in an immunocompromised individual), or other evidence exists to indicate HCV infection. Performed By: #### H AABT, SMAB, HCV RX PCR, HBSAG, CERULOP, HBCAB, ALPHA PHEN, IGG, MITOM2, HBSAB, CHAY, L-K MICRO #### [facility] , #### ABDIRASHID #### [facility] [address] Hepatitis A Antibody Totalon 12-12-2022 Hepatitis A Antibody Total Negative Normal Negative [facility] Comment on above: Order Comment: Reaso n for Exam Elevated liver function tests Result Comment: Perf ormed at: - [facility] [id number] Family Law Mediator: Afshin Martinez PhD, Phone: [phone] Performed By: #### H AABT, SMAB, HCV RX PCR, HBSAG, CERULOP, HBCAB, ALPHA PHEN, IGG, MITOM2, HBSAB, CHAY, L-K MICRO #### [facility] , #### ABDIRASHID #### [address] Hepatitis A Antibody Total Negative . [employer] Other Hepatitis B Core Antibodyon 12-12-2022 Hepatitis B Core Antibody Negative Normal Negative [facility] Comment on above: Order Comment: Reaso n for Exam Elevated liver function tests Performed By: #### H AABT, SMAB, HCV RX PCR, HBSAG, CERULOP, HBCAB, ALPHA PHEN, IGG, MITOM2, HBSAB, CHAY, L-K MICRO #### [facility] , #### ABDIRASHID #### [facility] [address] [place] [address] [place] Hepatitis B Surface Antibody on 12-12-2022 Hepatitis B Surface Antibody Non-Reactive Normal . [facility] Comment on above: Order Comment: Reaso n for Exam Elevated liver function tests Result Comment: Non Reactive: Inconsistent with immunity, less than 10 mIU/mL Reactive: Consistent with immunity, greater than 9.9 mIU/mL Performed By: #### H AABT, SMAB, HCV RX PCR, HBSAG, CERULOP, HBCAB, ALPHA PHEN, IGG, MITOM2, HBSAB, CHAY, L-K MICRO #### [facility] , #### ABDIRASHID #### [address] Hepatitis B Surface Antibody Non-Reactive Non Reactive [employer] Other Hepatitis B Surface Antigeno n 12-12-2022 HBsAg Screen Negative Normal Negative [facility] Comment on above: Order Comment: Reaso n for Exam Elevated liver function tests Result Comment: PERF ORMED BY: [place] [address] PATHOLOGIST AUTOMOBILE TECHNICIAN JULISSA GA M.D. Performed By: #### H AABT, SMAB, HCV RX PCR, HBSAG, CERULOP, HBCAB, ALPHA PHEN, IGG, MITOM2, HBSAB, CHAY, L-K MICRO #### [facility] , #### ABDIRASHID #### [address] Immunoglobulin Javi Immunoglobulin G 823 mg/dL Normal 586-1602 [facility] Comment on above: Order Comment: Reaso n for Exam Elevated liver function tests Result Comment: Perf ormed at: [facility] [id number] Family Law Mediator: Afshin Martinez PhD, Phone: [phone] Performed By: #### H AABT, SMAB, HCV RX PCR, HBSAG, CERULOP, HBCAB, ALPHA PHEN, IGG, MITOM2, HBSAB, CHAY, L-K MICRO #### [facility] , #### ABDIRASHID #### [facility] [address] [place] [address] Immunoglobulin G 823 mg/dL 586-1602 mg/dL [employer] Other Liver-Kidney Microsomal Abon 12-12-2022 Liver-Kidney Microsomal Ab 1.1 Normal 0.0-20.0 [facility] Comment on above: Order Comment: Reaso n for Exam Elevated liver function tests Result Comment: Nega tive 0.0 - 20.0 Equivocal 20.1 - 24.9 Positive >24.9 LKM type 1 antibodies are detected in patients with autoimmune hepatitis type 2 and in up to 8% of patients with chronic HCV infection. Performed at: [address] [id number] Family Law Mediator: Afshin Martinez PhD, Phone: [phone] PERFORMED BY: [place] [address] PATHOLOGIST AUTOMOBILE TECHNICIAN JULISSA GA M.D. Performed By: #### H AABT, SMAB, HCV RX PCR, HBSAG, CERULOP, HBCAB, ALPHA PHEN, IGG, MITOM2, HBSAB, CHAY, L-K MICRO #### [facility] , #### ABDIRASHID #### [address] Liver-Kidney Microsomal Ab 1.1 0.0-20.0 [employer] Other Mitochondrial (M2) Antibodyo n 12-12-2022 Mitochondrial (M2) Antibody <20.0 Normal 0.0-20.0 [facility] Comment on above: Order Comment: Reaso n for Exam Elevated liver function tests Result Comment: Nega tive 0.0 - 20.0 Equivocal 20.1 - 24.9 Positive >24.9 Mitochondrial (M2) Antibodies are found in 90-96% of patients with primary biliary cirrhosis. Performed at: [facility] [place] [facility] [id number] Family Law Mediator: Afshin Martinez PhD, Phone: [phone] Performed By: #### H AABT, SMAB, HCV RX PCR, HBSAG, CERULOP, HBCAB, ALPHA PHEN, IGG, MITOM2, HBSAB, CHAY, L-K MICRO #### [facility] , #### ABDIRASHID #### [facility] [address] [place] [address] Mitochondrial (M2) Antibody <20.0 0.0-20.0 [facility] [employer] Other Smooth Muscle Antibodyon Smooth Muscle Antibody 5 Normal 0-19 [facility] Comment on above: Order Comment: Reaso n for Exam Elevated liver function tests Result Comment: Nega tive 0 - 19 Weak positive 20 - 30 Moderate to strong positive >30 Actin Antibodies are found in 52-85% of patients with autoimmune hepatitis or chronic active hepatitis and in 22% of patients with primary biliary cirrhosis. Performed By: #### H AABT, SMAB, HCV RX PCR, HBSAG, CERULOP, HBCAB, ALPHA PHEN, IGG, MITOM2, HBSAB, CHAY, L-K MICRO #### [facility] , #### ABDIRASHID #### [address] [address] [facility] Smooth Muscle Antibody 5 0-19 [facility] [employer] Other MR MRCPon 11-10-2022 MR MRCP [facility] [address] [place] [address] [place] [address] MRI Report Signed Patient: Jose Alberto Saleem MR#: [id number] : 1965 Acct:[id number] Age/Sex: 57 / F ADM Date: 11/10/22 Loc: Room: Type: [facility] Attending Dr: Evert Bruno MD Copies to: Evert Bruno MD Ordering Provider: Evert Bruno MD Date of Service: 11/10/22 MR/MR MRCP: Abdominal pain;Common bile duct dilatation;Elevated liver en MRCP CLINICAL DATA: Elevated lipase. Abnormal outside abdominal CT COMPARISON: CT abdomen 10/16/2022 Multiecho imaging of the abdomen was performed along with radial imaging of the biliary tree. The gallbladder surgically absent. There is no significant intrahepatic biliary dilatation. The common duct is slightly prominent measuring up to 6 mm. It tapers toward the ampulla. No in traluminal filling defects are identified to suggest choledocholithiasis. The pancreatic duct is also borderline prominent measuring 2 - 3 mm. No intrahepatic masses are identified. No pancreatic abnormalities are noted. The spleen and adrenal glands are within normal limits. There is no hydronephrosis. There are right renal cysts. There is no aortic aneurysm. No adenopathy or ascites is seen. There is no dilated bowel within the [id number]. MR/MR MRCP IMPRESSION: SLIGHTLY PROMINENT COMMON DUCT, WITHOUT CHOLEDOCHOLITHIASIS. THIS MAY RELATE TO PREVIOUS CHOLECYSTECTOMY. RIGHT RENAL CYSTS. NO OTHER SIGNIFICANT MRI FINDINGS. Impression dictated by: Thelma Wick M.D.11/10/2022 7:00 PM Dictation Location: [place] [address] Transcribed By: [facility] 11/10/221899 Dictated By: Thelma Wick MD 11/10/221849 Signed By: 11/10/221899 Normal [facility] MR MRCP [facility] [employer] Other MR MRCP [facility] [employer] Other MR MRCP [address] [place] [address] [employer] Other MR MRCP [address] [employer] Other MR MRCP MRI Report [facility] [employer] Other MR MRCP Signed [employer] Other MR MRCP Patient: Jose Alberto Saleem MR#: [id number] [place] [employer] Other MR MRCP [address] [facility] [employer] Other MR MRCP : 1965 Acct:[id number] [employer] Other MR MRCP Age/Sex: 57 / F ADM Date: 11/10/22 [employer] Other MR MRCP Loc: MR Room: Type: [facility] [employer] Other MR MRCP Attending Dr: Evert Bruno MD [employer] Other MR MRCP Copies to: Evert Bruno MD [employer] Other MR MRCP Ordering Provider: Evert Bruno MD [employer] Other MR MRCP Date of Service: 11/10/22 [employer] Other MR MRCP MR/MR MRCP: Abdominal pain;Common bile duct dilatation;Elevated liver en [employer] Other MR MRCP MRCP [employer] Other MR MRCP CLINICAL DATA: Elevated lipase. Abnormal outside abdominal CT [employer] Other MR MRCP COMPARISON: CT abdomen 10/16/2022 [employer] Other MR MRCP Multiecho imaging of the abdomen was performed along with radial imaging of the biliary tree. [employer] Other MR MRCP The gallbladder surgically absent. There is no significant intrahepatic biliary dilatation. The [employer] Other MR MRCP common duct is slightly prominent measuring up to 6 mm. It tapers toward the ampulla. No in [employer] Other MR MRCP traluminal filling defects are identified to suggest choledocholithiasis. The pancreatic duct is [employer] Other MR MRCP also borderline prominent measuring 2 - 3 mm. No intrahepatic masses are identified. No pancreatic [employer] Other MR MRCP abnormalities are noted. The spleen and adrenal glands are within normal limits. There is no [employer] Other MR MRCP hydronephrosis. There are right renal cysts. There is no aortic aneurysm. No adenopathy or [employer] Other MR MRCP ascites is seen. There is no dilated bowel within the [id number]. [employer] Other MR MRCP MR/MR MRCP [employer] Other MR MRCP IMPRESSION: [employer] Other MR MRCP SLIGHTLY PROMINENT COMMON DUCT, WITHOUT CHOLEDOCHOLITHIASIS. THIS MAY RELATE TO PREVIOUS [employer] Other MR MRCP CHOLECYSTECTOMY. [facility] [employer] Other MR MRCP RIGHT RENAL CYSTS. [employer] Other MR MRCP NO OTHER SIGNIFICANT MRI FINDINGS. [employer] Other MR MRCP Impression dictated by: Thelma Wick M.D.11/10/2022 7:00 PM [employer] Other MR MRCP Dictation Location: [place] [address] [employer] Other MR MRCP Transcribed By: PWS 11/10/221899 [employer] Other MR MRCP Dictated By: Thelma Wick MD 11/10/221849 [employer] Other MR MRCP Signed By: [employer] Other MR MRCP 11/10/221899 [employer] Other Albumin [Mass/volume] in Ser um or PlasmaOrdered By: Imsara Bruno on 11-01-2022 Albumin [Mass/Vol] 4.0 g/dL 3.2-5.5 [facility] Direct bilirubin measurement Ordered By: Imad Asasara on 11-01-2022 Bilirubin.direct [Mass/Vol] 0.1 mg/dL 0.0-0.4 [facility] Globulin Calc (S) [Mass/Vol] Ordered By: Imad Asaad on 11-01-2022 Globulin (S) [Mass/Vol] 2.5 g/dL [facility] Hepatic Panelon 11-01-2022 Albumin [Mass/Vol] 4.758167 g/dL Normal 3.2-5.5 g/dL [facility] [employer] Other Bilirubin [Mass/Vol] 0.6166326 mg/dL Normal 0.3- 1.2 mg/dL [employer] Other Bilirubin.indirect [Mass/Vol] 0.3352305 mg/dL Normal 0.0-0.4 mg/dL [employer] Other Protein [Mass/Vol] 6.980572 g/dL Normal 6.1-7.9 g/dL [facility] Other Hepatic Panel 0.5 mg/dL [employer] Other Hepatic Panel 2.5 g/dL [employer] Other Albumin [Mass/Vol] 4.0 g/dL Normal 3.2-5.5 [facility] Comment on above: Order Comment: Reaso n for Exam Elevated liver enzymes Performed By: #### H EPATIC #### [facility] [address] [place] [address] [place] Albumin/Globulin [Mass ratio] 1.6 {ratio} Normal [facility] Comment on above: Order Comment: Reaso n for Exam Elevated liver enzymes Performed By: #### H EPATIC #### [facility] [address] [place] [address] [place] ALP [Catalytic activity/Vol] 93 U/L High 32-92 [facility] Comment on above: Order Comment: Reaso n for Exam Elevated liver enzymes Result Comment: PERF ORMED BY: [facility] [address] [facility] [place] [id number] PATHOLOGIST [employer]OMO[employer] TECHNICIAN JULISSA GA M.D. Performed By: #### H EPATIC #### [facility] [address] [place] [address] [place] ALT [Catalytic activity/Vol] 94 U/L High 10-60 [facility] [employer] Other Comment on above: Order Comment: Reaso n for Exam Elevated liver enzymes Performed By: #### H EPATIC #### [facility] [address] [place] [address] [place] AST [Catalytic activity/Vol] 66 U/L High 10-42 [facility] Comment on above: Order Comment: Reaso n for Exam Elevated liver enzymes Performed By: #### H EPATIC #### [facility] [address] [place], [place] [id number] [place] Bilirubin [Mass/Vol] 0.6 mg/dL Normal 0.3-1.[address] [facility] Comment on above: Order Comment: Reaso n for Exam Elevated liver enzymes Performed By: #### H EPATIC #### [place] [id number] [place] Bilirubin,Indirect 0.5 mg/dL Normal [facility] Comment on above: Order Comment: Reaso n for Exam Elevated liver enzymes Performed By: #### H EPATIC #### [place] [address] [place] Bilirubin.indirect [Mass/Vol] 0.1 mg/dL Normal 0.0-0.4 [facility] Comment on above: Order Comment: Reaso n for Exam Elevated liver enzymes Performed By: #### H EPATIC #### [place] [id number] [place] Globulin (S) [Mass/Vol] 2.5 g/dL Normal [facility] Comment on above: Order Comment: Reaso n for Exam Elevated liver enzymes Performed By: #### H EPATIC #### [place] [id number] [place] Protein [Mass/Vol] 6.5 g/dL Normal 6.1-7.9 [facility] Comment on above: Order Comment: Reaso n for Exam Elevated liver enzymes Performed By: #### H EPATIC #### [facility] [address] [place], [place] [id number] [place] Protein [Mass/volume] in Ser um or PlasmaOrdered By: Evert Bruno on 11-01-2022 Protein [Mass/Vol] 6.5 g/dL 6.1-7.9 [facility] Serum or plasma alanine li otransferase measurement without P-5'-P (enzymatic activiOrdered By: Evert Bruno on 11-01-2022 ALT No additional P-5'-P [Catalytic activity/Vol] 94 U/L 10-60 [facility] Serum or plasma albumin/glob ulin mass ratioOrdered By: [facility] on 11-01-2022 Albumin/Globulin [Mass ratio] 1.6 {ratio} [facility] Serum or plasma alkaline monster sphatase measurement (enzymatic activity/volume)Ordered By: Imad Asaad on 11-01-2022 ALP [Catalytic activity/Vol] 93 U/L 32-92 [facility] Serum or plasma aspartate am inotransferase measurement (enzymatic activity/volume)Ordered By: Imad Asaad on 11-01-2022 AST [Catalytic activity/Vol] 66 U/L 10-42 [facility] Serum or plasma non-glucuron idated bilirubin measurement (mass/volume)Ordered By: ad [facility] on 11-01-2022 Bilirubin.indirect [Mass/Vol] 0.5 mg/dL [facility] Serum or plasma total biliru bin measurement (mass/volume)Ordered By: Imad Asa on 11-01-2022 Bilirubin [Mass/Vol] 0.6 mg/dL 0.3-1.[address] [facility] CT ABDOMEN WO/W CONon 2022 CT ABDOMEN WO/W CON EXAMINATION: CT ABDOMEN WO/W CON HISTORY: Idiopathic acute pancreatitis , abdominal pain COMPARISON: 10/05/2022 plain x-ray and ultrasound TECHNIQUE: Axial, Coronal, and Sagittal images were created without and with non-ionic intravenous contrast material. Dose reduction techniques were achieved by using automated exposure control and/or adjustment of mA and/or kV according to patient size and/or use of iterative reconstruction technique. FINDINGS: LUNG BASES: No visible pulmonary or pleural disease. Moderate coronary atherosclerosis LIVER: No enlargement, atrophy, abnormal density, or significant focal lesion. BILIARY: Surgical clips from cholecystectomy PANCREAS: No lesion, fluid collection, ductal dilatation, or atrophy. SPLEEN: No enlargement or focal lesion. ADRENALS: No mass or enlargement. KIDNEYS: Right cortical hypodensity consistent with a simple cyst. No hydronephrosis. Punctate 2 mm left nonobstructing nephrolith BOWEL/MESENTERY: Prior gastric surgery with suture lines. Moderate amount of stool throughout the colon. Nonobstructive bowel gas pattern. AORTA/VASCULAR: No aortic aneurysm. Moderate diffuse atherosclerosis RETROPERITONEUM: No mass or adenopathy. ABDOMINAL WALL: No mass or hernia. BONES: No bony lesion or fracture. OTHER: Negative. IMPRESSION: No acute intraperitoneal abnormality Moderate amount of stool Electronically authenticated by: JAE WILSON Date: 2022-10-17 08:23 Normal [facility] AMMONIAon 10-09-2022 Ammonia (P) [Moles/Vol] 10 umol/L Critically low 11-32 [facility] Comment on above: Performed By: #### A MY #### [facility] [address] [place] [address] Dr. Ayden Cam AMYLASEon 10-09-2022 Amylase [Catalytic activity/Vol] 144 U/L Critically high 25-115 [facility] Comment on above: Performed By: #### L IPA #### [facility] [address] [place] [address] Dr. Ayden Cam CBC AUTO DIFFon 10-09-2022 BASO # 0.0 103/ul Normal 0.0-0.1 [facility] Comment on above: Performed By: #### C BC #### [facility] [address] [place] [address] Dr. Ayden Cam Basophils/100 WBC (Bld) 0.2 % Normal 0.2-2.0 [facility] Comment on above: Performed By: #### C BC #### [facility] [address] [place] [address] Dr. Ayden Cam EO # 0.2 103/ul Normal 0.0-0.7 [facility] Comment on above: Performed By: #### C BC #### [facility] [address] [place] [address] Dr. Ayden Cam Eosinophils/100 WBC (Bld) 3.3 % Normal 0.9-7.0 [facility] Comment on above: Performed By: #### C BC #### [facility] [address] [place] [address] Dr. Ayden Cam Erythrocyte distribution width (RBC) [Ratio] 12.1 % Normal 11.0-15.0 [facility] Comment on above: Performed By: #### C BC #### [facility] [address] [place] [address] Dr. Ayden Cam Hematocrit (Bld) [Volume fraction] 40.0 % Normal 36.0-48.0 [facility] Comment on above: Performed By: #### C BC #### [facility] [address] [place] [address] Dr. Ayden Cam Hemoglobin (Bld) [Mass/Vol] 14.2 g/dL Normal 12.0-16.0 [facility] Comment on above: Performed By: #### C BC #### [facility] [address] [place] [address] Dr. Ayden Cam IG # 0.01 10e3/ul Normal 0.00-0.03 [facility] Comment on above: Performed By: #### C BC #### [facility] [address] [place] [address] Dr. Ayden Cam IG % 0.2 % Normal 0.0-0.5 [facility] Comment on above: Performed By: #### C BC #### [facility] [address] [place] [address] Dr. Ayden Cam LYMPH # 1.5 103/ul Normal 1.2-3.8 [facility] Comment on above: Performed By: #### C BC #### [facility] [address] [place] [address] Dr. Ayden Cam Lymphocytes/100 WBC (Bld) 24.2 % Normal 20.5-60.0 [facility] Comment on above: Performed By: #### C BC #### [facility] [address] [place] [address] Dr. Ayden Cam MANUAL DIFF REQ NO Normal [facility] Comment on above: Performed By: #### C BC #### [facility] [address] [place] [address] Dr. Ayden Cam MCH (RBC) [Entitic mass] 30.0 pg Normal 26.7-34.0 [facility] Comment on above: Performed By: #### C BC #### [facility] [address] [place] [address] Dr. Ayden Cam MCHC (RBC) [Mass/Vol] 35.5 g/dL Critically high 29.9-35.2 [facility] Comment on above: Performed By: #### C BC #### [facility] [address] [place] [address] Dr. Ayden Cam MCV (RBC) [Entitic vol] 84.4 fL Normal 81.0-99.0 [facility] Comment on above: Performed By: #### C BC #### [facility] [address] [place] [address] [address] Ayden Cam MONO # 0.6 103/ul Normal 0.3-0.8 [facility] Comment on above: Performed By: #### C BC #### [facility] [address] [place] [address] Dr. Ayden Cam Monocytes/100 WBC (Bld) 10.3 % Normal 1.7-12.0 [facility] Comment on above: Performed By: #### C BC #### [facility] [address] [place] [address] Dr. Ayden Cam NEUT # 3.7 103/ul Normal 1.4-6.5 [facility] Comment on above: Performed By: #### C BC #### [facility] [address] [place] [address] Dr. Ayden Cam Neutrophils/100 WBC (Bld) 61.8 % Normal 43.0-75.0 [facility] Comment on above: Performed By: #### C BC #### [facility] [address] [place] [address] Dr. Ayden Cam Platelet mean volume (Bld) [Entitic vol] 9.0 fL Critically low 9.5-13.5 [facility] Comment on above: Performed By: #### C BC #### [facility] [address] [place] [address] Dr. Ayden Cam PLT 191 103/ul Normal 150-450 [facility] Comment on above: Performed By: #### C BC #### [facility] [address] [place] [address] Dr. Ayden Cam RBC 4.74 106/ul Normal 4.20-5.40 [facility] Comment on above: Performed By: #### C BC #### [facility] [address] [place] [address] Dr. Ayden Cam WBC 6.0 103/ul Normal 4.0-11.0 [facility] Comment on above: Performed By: #### C BC #### [facility] [address] [place] [address] Dr. Ayden Cam LIPASEon 10-09-2022 Lipase [Catalytic activity/Vol] 168.0 U/L Normal 73.0-393.0 [facility] Comment on above: Performed By: #### L ACT #### [facility] [address] [place] [address] Dr. Ayden Cam PROF 14(COMP METB)on 023 Albumin [Mass/Vol] 3.6 g/dL Normal 3.4-5.0 [facility] Comment on above: Performed By: #### L IPA #### [facility] [address] [place] [address] Dr. Ayden Cam Albumin/Globulin [Mass ratio] 1.1 {ratio} Normal [facility] Comment on above: Performed By: #### L IPA #### [facility] [address] [place] [address] Dr. Ayden Cam ALP [Catalytic activity/Vol] 93 U/L Normal 46-116 [facility] Comment on above: Performed By: #### L IPA #### [facility] [address] [place] [address] Dr. Ayden Cam ALT [Catalytic activity/Vol] 52 U/L Normal 14-59 [facility] Comment on above: Performed By: #### L IPA #### [facility] [address] [place] [address] Dr. Ayden Cam Anion gap [Moles/Vol] 10.2 mmol/L Normal [facility] Comment on above: Performed By: #### L IPA #### [facility] [address] [place] [address] Dr. Ayden Cam AST [Catalytic activity/Vol] 33 U/L Normal 15-37 [facility] Comment on above: Performed By: #### L IPA #### [facility] [address] [place] [address] [address] Ayden Cam Bilirubin [Mass/Vol] 0.3 mg/dL Normal 0.2-1.0 [facility] Comment on above: Performed By: #### L IPA #### [facility] [address] [place] [address] [address] Ayden Cam Calcium [Mass/Vol] 9.4 mg/dL Normal 8.5-10.1 [facility] Comment on above: Performed By: #### L IPA #### [facility] [address] [place] [address] [address] Ayden Cam Chloride [Moles/Vol] 99 mmol/L Normal 98-107 [facility] Comment on above: Performed By: #### L IPA #### [facility] [address] [place] [address] Dr. Ayden Cam CO2 [Moles/Vol] 33.7 mmol/L Critically high 21.0-32.0 [facility] Comment on above: Performed By: #### L IPA #### [facility] [address] [place] [address] Dr. Ayden Cam Creatinine [Mass/Vol] 0.62 mg/dL Normal 0.55-1.02 [facility] Comment on above: Performed By: #### L IPA #### [facility] [address] [place] [address] Dr. Ayden Cam EGFR-AF MALTESE >60 Normal >=60 [facility] Comment on above: Performed By: #### L IPA #### [facility] [address] [place] [address] [address] Ayden Cam EGFR-NON AF MALTESE >60 Normal >=60 [facility] Comment on above: Performed By: #### L IPA #### [facility] [address] [place] [address] [address] Ayden Cam Globulin (S) [Mass/Vol] 3.4 g/dL Normal [facility] Comment on above: Performed By: #### L IPA #### [facility] [address] [place] [address] [address] Ayden Cam Glucose [Mass/Vol] 105 mg/dL Normal 74-106 [facility] Comment on above: Performed By: #### L IPA #### [facility] [address] [place] [address] [address] Ayden Cam Potassium [Moles/Vol] 3.9 mmol/L Normal 3.5-5.1 [facility] Comment on above: Performed By: #### L IPA #### [facility] [address] [place] [address] [address] Ayden Cam Protein [Mass/Vol] 7.0 g/dL Normal 6.4-8.2 [facility] Comment on above: Performed By: #### L IPA #### [facility] [address] [place] [address] [address] Ayden Cam Sodium [Moles/Vol] 139 mmol/L Normal 136-145 [facility] Comment on above: Performed By: #### L IPA #### [facility] [address] [place] [address] [address] Ayden Cam Urea nitrogen [Mass/Vol] 28.0 mg/dL Critically high 7.0-18.0 [facility] Comment on above: Performed By: #### L IPA #### [facility] [address] [place] [address] [address] Ayden Cam Urea nitrogen/Creatinine [Mass ratio] 45.2 mg/mg Normal [facility] Comment on above: Performed By: #### L IPA #### [facility] [address] [place] [address] [address] Ayden Cam AMMONIAon 10-06-2022 Ammonia (P) [Moles/Vol] 16 umol/L Normal 11-32 [facility] Comment on above: Performed By: #### A MM #### [facility] [address] [place] [address] [address] Ayden Cam AMYLASEon 10-06-2022 Amylase [Catalytic activity/Vol] 189 U/L Critically high 25-115 [facility] Comment on above: Performed By: #### L IPA #### [facility] [address] [place] [address] [address] Ayden Cam CBC AUTO DIFFon 10-06-2022 BASO # 0.0 103/ul Normal 0.0-0.1 [facility] Comment on above: Performed By: #### C BC #### [facility] [address] [place] [address] [address] Ayden Cam Basophils/100 WBC (Bld) 0.2 % Normal 0.2-2.0 [facility] Comment on above: Performed By: #### C BC #### [facility] [address] [place] [address] Dr. Ayden Cam EO # 0.3 103/ul Normal 0.0-0.7 [facility] Comment on above: Performed By: #### C BC #### [facility] [address] [place] [address] Dr. Ayden Cam Eosinophils/100 WBC (Bld) 5.2 % Normal 0.9-7.0 [facility] Comment on above: Performed By: #### C BC #### [facility] [address] [place] [address] Dr. Ayden Cam Erythrocyte distribution width (RBC) [Ratio] 12.3 % Normal 11.0-15.0 [facility] Comment on above: Performed By: #### C BC #### [facility] [address] [place] [address] Dr. Ayden Cam Hematocrit (Bld) [Volume fraction] 36.9 % Normal 36.0-48.0 [facility] Comment on above: Performed By: #### C BC #### [facility] [address] [place] [address] Dr. Ayden Cam Hemoglobin (Bld) [Mass/Vol] 12.4 g/dL Normal 12.0-16.0 [facility] Comment on above: Performed By: #### C BC #### [facility] [address] [place] [address] Dr. Ayden Cam IG # 0.01 10e3/ul Normal 0.00-0.03 [facility] Comment on above: Performed By: #### C BC #### [facility] [address] [place] [address] Dr. Ayden Cam IG % 0.2 % Normal 0.0-0.5 [facility] Comment on above: Performed By: #### C BC #### [facility] [address] [place] [address] Dr. Ayden Cam LYMPH # 1.8 103/ul Normal 1.2-3.8 [facility] Comment on above: Performed By: #### C BC #### [facility] [address] [place] [address] Dr. Ayden Cam Lymphocytes/100 WBC (Bld) 31.3 % Normal 20.5-60.0 [facility] Comment on above: Performed By: #### C BC #### [facility] [address] [place] [address] Dr. Ayden Cam MANUAL DIFF REQ NO Normal [facility] Comment on above: Performed By: #### C BC #### [facility] [address] [place] [address] Dr. Ayden Cam MCH (RBC) [Entitic mass] 30.0 pg Normal 26.7-34.0 [facility] Comment on above: Performed By: #### C BC #### [facility] [address] [place] [address] Dr. Ayden Cam MCHC (RBC) [Mass/Vol] 33.6 g/dL Normal 29.9-35.2 [facility] Comment on above: Performed By: #### C BC #### [facility] [address] [place] [address] Dr. Ayden Cam MCV (RBC) [Entitic vol] 89.1 fL Normal 81.0-99.0 [facility] Comment on above: Performed By: #### C BC #### [facility] [address] [place] [address] Dr. Ayden Cam MONO # 0.6 103/ul Normal 0.3-0.8 [facility] Comment on above: Performed By: #### C BC #### [facility] [address] [place] [address] Dr. Ayden Cam Monocytes/100 WBC (Bld) 10.1 % Normal 1.7-12.0 [facility] Comment on above: Performed By: #### C BC #### [facility] [address] [place] [address] Dr. Ayden Cam NEUT # 3.1 103/ul Normal 1.4-6.5 [facility] Comment on above: Performed By: #### C BC #### [facility] [address] [place] [address] Dr. Ayden Cam Neutrophils/100 WBC (Bld) 53.0 % Normal 43.0-75.0 [facility] Comment on above: Performed By: #### C BC #### [facility] [address] [place] [address] Dr. Ayden Cam Platelet mean volume (Bld) [Entitic vol] 9.4 fL Critically low 9.5-13.5 [facility] Comment on above: Performed By: #### C BC #### [facility] [address] [place] [address] Dr. Ayden Cam PLT 153 103/ul Normal 150-450 [facility] Comment on above: Performed By: #### C BC #### [facility] [address] [place] [address] Dr. Ayden Cam RBC 4.14 106/ul Critically low 4.20-5.40 [facility] Comment on above: Performed By: #### C BC #### [facility] [address] [place] [address] Dr. Ayden Cam WBC 5.8 103/ul Normal 4.0-11.0 [facility] Comment on above: Performed By: #### C BC #### [facility] [address] [place] [address] Dr. Ayden Cam LIPASEon 10-06-2022 Lipase [Catalytic activity/Vol] 166.0 U/L Normal 73.0-393.0 [facility] Comment on above: Performed By: #### L IPA #### [facility] [address] [place] [address] [address] Ayden Cam LIVER PROFILEon 10-06-2022 Albumin [Mass/Vol] 3.2 g/dL Critically low 3.4-5.0 [facility] Comment on above: Performed By: #### L IPA #### [facility] [address] [place] [address] Dr. Ayden Cam Albumin/Globulin [Mass ratio] 1.3 {ratio} Normal [facility] Comment on above: Performed By: #### L IPA #### [facility] [address] [place] [address] Dr. Ayden Cam ALP [Catalytic activity/Vol] 88 U/L Normal 46-116 [facility] Comment on above: Performed By: #### L IPA #### [facility] [address] [place] [address] Dr. Ayden Cam ALT [Catalytic activity/Vol] 66 U/L Critically high 14-59 [facility] Comment on above: Performed By: #### L IPA #### [facility] [address] [place] [address] Dr. Ayden Cam AST [Catalytic activity/Vol] 39 U/L Critically high 15-37 [facility] Comment on above: Performed By: #### L IPA #### [facility] [address] [place] [address] Dr. Ayden Cam BILI, CONJUGATED 0.1 mg/dL Normal 0.0-0.2 [facility] Comment on above: Performed By: #### L IPA #### [facility] [address] [place] [address] Dr. Ayden Cam Bilirubin [Mass/Vol] 0.4 mg/dL Normal 0.2-1.0 [facility] Comment on above: Performed By: #### L IPA #### [facility] [address] [place] [address] Dr. Ayden Cam Globulin (S) [Mass/Vol] 2.4 g/dL Normal [facility] Comment on above: Performed By: #### L IPA #### [facility] [address] [place] [address] Dr. Ayden Cam Protein [Mass/Vol] 5.6 g/dL Critically low 6.4-8.2 [facility] Comment on above: Performed By: #### L IPA #### [facility] [address] [address] [address] Ayden Cam PROF CHEM 8 (BAS METB)on Anion gap [Moles/Vol] 6.8 mmol/L Normal [facility] Comment on above: Performed By: #### L IPA #### [facility] [address] [address] [address] Ayden Cam Calcium [Mass/Vol] 8.6 mg/dL Normal 8.5-10.1 [facility] Comment on above: Performed By: #### L IPA #### [facility] [address] [place] [address] Dr. Ayden Cam Chloride [Moles/Vol] 102 mmol/L Normal 98-107 [facility] Comment on above: Performed By: #### L IPA #### [facility] [address] [address] [address] Ayden Cam CO2 [Moles/Vol] 32.6 mmol/L Critically high 21.0-32.0 [facility] Comment on above: Performed By: #### L IPA #### [facility] [address] [place] [address] Dr. Ayden Cam Creatinine [Mass/Vol] 0.61 mg/dL Normal 0.55-1.02 [facility] Comment on above: Performed By: #### L IPA #### [facility] [address] [address] [address] Ayden Cam EGFR-AF MALTESE >60 Normal >=60 [facility] Comment on above: Performed By: #### L IPA #### [facility] [address] [address] [address] Ayden Cam EGFR-NON AF MALTESE >60 Normal >=60 [facility] Comment on above: Performed By: #### L IPA #### [facility] [address] [place] [address] Dr. Ayden Cam Glucose [Mass/Vol] 91 mg/dL Normal 74-106 [facility] Comment on above: Performed By: #### L IPA #### [facility] [address] [place] [address] Dr. Ayden Cam Potassium [Moles/Vol] 3.4 mmol/L Critically low 3.5-5.1 [facility] Comment on above: Performed By: #### L IPA #### [facility] [address] [address] [address] Ayden Cam Sodium [Moles/Vol] 138 mmol/L Normal 136-145 [facility] Comment on above: Performed By: #### L IPA #### [facility] [address] [place] [address] Dr. Ayden Cam Urea nitrogen [Mass/Vol] 13.0 mg/dL Normal 7.0-18.0 [facility] Comment on above: Performed By: #### L IPA #### [facility] [address] [place] [address] Dr. Ayden Cam Urea nitrogen/Creatinine [Mass ratio] 21.3 mg/mg Normal [facility] Comment on above: Performed By: #### L IPA #### [facility] [address] [place] [address] Dr. Ayden Cam AMMONIAon 10-05-2022 Ammonia (P) [Moles/Vol] 10 umol/L Critically low 11-32 [facility] Comment on above: Performed By: #### A MM #### [facility] [address] [place] [address] Dr. Ayden Cam AMYLASEon 10-05-2022 Amylase [Catalytic activity/Vol] 109 U/L Normal 25-115 [facility] Comment on above: Performed By: #### A MY #### [facility] [address] [place] [address] Dr. Ayden Cam CBC AUTO DIFFon 10-05-2022 BASO # 0.0 103/ul Normal 0.0-0.1 [facility] Comment on above: Performed By: #### L IPA #### [facility] [address] [place] [address] Dr. Ayden Cam Basophils/100 WBC (Bld) 0.3 % Normal 0.2-2.0 [facility] Comment on above: Performed By: #### L IPA #### [facility] [address] [place] [address] Dr. Ayden Cam EO # 0.3 103/ul Normal 0.0-0.7 [facility] Comment on above: Performed By: #### L IPA #### [facility] [address] [place] [address] Dr. Ayden Cam Eosinophils/100 WBC (Bld) 4.3 % Normal 0.9-7.0 [facility] Comment on above: Performed By: #### L IPA #### [facility] [address] [place] [address] Dr. Ayden Cam Erythrocyte distribution width (RBC) [Ratio] 12.2 % Normal 11.0-15.0 [facility] Comment on above: Performed By: #### L IPA #### [facility] [address] [place] [address] Dr. Ayden Cam Hematocrit (Bld) [Volume fraction] 38.9 % Normal 36.0-48.0 [facility] Comment on above: Performed By: #### L IPA #### [facility] [address] [place] [address] Dr. Ayden Cam Hemoglobin (Bld) [Mass/Vol] 12.8 g/dL Normal 12.0-16.0 [facility] Comment on above: Performed By: #### L IPA #### [facility] [address] [place] [address] Dr. Ayden Cam IG # 0.01 10e3/ul Normal 0.00-0.03 [facility] Comment on above: Performed By: #### L IPA #### [facility] [address] [place] [address] Dr. Ayden Cam IG % 0.2 % Normal 0.0-0.5 [facility] Comment on above: Performed By: #### L IPA #### [facility] [address] [place] [address] Dr. Ayden Cam LYMPH # 1.9 103/ul Normal 1.2-3.8 [facility] Comment on above: Performed By: #### L IPA #### [facility] [address] [place] [address] Dr. Ayden Cam Lymphocytes/100 WBC (Bld) 31.4 % Normal 20.5-60.0 [facility] Comment on above: Performed By: #### L IPA #### [facility] [address] [place] [address] Dr. Ayden Cam MANUAL DIFF REQ NO Normal [facility] Comment on above: Performed By: #### L IPA #### [facility] [address] [place] [address] Dr. Ayden Cam MCH (RBC) [Entitic mass] 29.6 pg Normal 26.7-34.0 [facility] Comment on above: Performed By: #### L IPA #### [facility] [address] [place] [address] Dr. Ayden Cam MCHC (RBC) [Mass/Vol] 32.9 g/dL Normal 29.9-35.2 [facility] Comment on above: Performed By: #### L IPA #### [facility] [address] [place] [address] Dr. Ayden Cam MCV (RBC) [Entitic vol] 89.8 fL Normal 81.0-99.0 [facility] Comment on above: Performed By: #### L IPA #### [facility] [address] [place] [address] Dr. Ayden Cam MONO # 0.6 103/ul Normal 0.3-0.8 [facility] Comment on above: Performed By: #### L IPA #### [facility] [address] [place] [address] Dr. Ayden Cam Monocytes/100 WBC (Bld) 10.1 % Normal 1.7-12.0 [facility] Comment on above: Performed By: #### L IPA #### [facility] [address] [place] [address] Dr. Ayden Cam NEUT # 3.2 103/ul Normal 1.4-6.5 [facility] Comment on above: Performed By: #### L IPA #### [facility] [address] [place] [address] Dr. Ayden Cam Neutrophils/100 WBC (Bld) 53.7 % Normal 43.0-75.0 [facility] Comment on above: Performed By: #### L IPA #### [facility] [address] [place] [address] Dr. Ayden Cam Platelet mean volume (Bld) [Entitic vol] 9.7 fL Normal 9.5-13.5 [facility] Comment on above: Performed By: #### L IPA #### [facility] [address] [place] [address] Dr. Ayden Cam PLT 168 103/ul Normal 150-450 [facility] Comment on above: Performed By: #### L IPA #### [facility] [address] [place] [address] Dr. Ayden Cam RBC 4.33 106/ul Normal 4.20-5.40 [facility] Comment on above: Performed By: #### L IPA #### [facility] [address] [place] [address] Dr. Ayden Cam WBC 6.0 103/ul Normal 4.0-11.0 [facility] Comment on above: Performed By: #### L IPA #### [facility] [address] [place] [address] Dr. Ayden Cam LIPASEon 10-05-2022 Lipase [Catalytic activity/Vol] 151.0 U/L Normal 73.0-393.0 [facility] Comment on above: Performed By: #### L IPA #### [facility] [address] [place] [address] Dr. Ayden Cam LIVER PROFILEon 10-05-2022 Albumin [Mass/Vol] 3.2 g/dL Critically low 3.4-5.0 [facility] Comment on above: Performed By: #### L ACT #### [facility] [address] [place] [address] Dr. Adyen Cam Albumin/Globulin [Mass ratio] 1.1 {ratio} Normal [facility] Comment on above: Performed By: #### L ACT #### [facility] [address] [place] [address] Dr. Ayden Cam ALP [Catalytic activity/Vol] 82 U/L Normal 46-116 [facility] Comment on above: Performed By: #### L ACT #### [facility] [address] [place] [address] Dr. Ayden Cam ALT [Catalytic activity/Vol] 70 U/L Critically high 14-59 [facility] Comment on above: Performed By: #### L ACT #### [facility] [address] [place] [address] Dr. Ayden Cam AST [Catalytic activity/Vol] 36 U/L Normal 15-37 [facility] Comment on above: Performed By: #### L ACT #### [facility] [address] [place] [address] Dr. Ayden Cam BILI, CONJUGATED 0.1 mg/dL Normal 0.0-0.2 [facility] Comment on above: Performed By: #### L ACT #### [facility] [address] [place] [address] Dr. Ayden Cam Bilirubin [Mass/Vol] 0.3 mg/dL Normal 0.2-1.0 [facility] Comment on above: Performed By: #### L ACT #### [facility] [address] [place] [address] Dr. Ayden Cam Globulin (S) [Mass/Vol] 3.0 g/dL Normal [facility] Comment on above: Performed By: #### L ACT #### [facility] [address] [place] [address] Dr. Ayden Cam Protein [Mass/Vol] 6.2 g/dL Critically low 6.4-8.2 [facility] Comment on above: Performed By: #### L ACT #### [facility] [address] [place] [address] Dr. Ayden Cam PROF CHEM 8 (BAS METB)on Anion gap [Moles/Vol] 9.5 mmol/L Normal [facility] Comment on above: Performed By: #### B MP #### [facility] [address] [place] [address] Dr. Ayden Cam Calcium [Mass/Vol] 8.9 mg/dL Normal 8.5-10.1 [facility] Comment on above: Performed By: #### B MP #### [facility] [address] [address] [address] Ayden Cam Chloride [Moles/Vol] 105 mmol/L Normal 98-107 [facility] Comment on above: Performed By: #### B MP #### [facility] [address] [place] [address] Dr. Ayden Cam CO2 [Moles/Vol] 29.6 mmol/L Normal 21.0-32.0 [facility] Comment on above: Performed By: #### B MP #### [facility] [address] [place] [address] Dr. Ayden Cam Creatinine [Mass/Vol] 0.56 mg/dL Normal 0.55-1.02 [facility] Comment on above: Performed By: #### B MP #### [facility] [address] [place] [address] Dr. Ayden Cam EGFR-AF MALTESE >60 Normal >=60 [facility] Comment on above: Performed By: #### B MP #### [facility] [address] [place] [address] Dr. Ayden Cam EGFR-NON AF MALTESE >60 Normal >=60 [facility] Comment on above: Performed By: #### B MP #### [facility] [address] [place] [address] Dr. Ayden Cam Glucose [Mass/Vol] 88 mg/dL Normal 74-106 [facility] Comment on above: Performed By: #### B MP #### [facility] [address] [place] [address] Dr. Ayden Cam Potassium [Moles/Vol] 4.1 mmol/L Normal 3.5-5.1 [facility] Comment on above: Performed By: #### B MP #### [facility] [address] [place], [place] [address] Dr. Ayden Cam Sodium [Moles/Vol] 140 mmol/L Normal 136-145 [facility] Comment on above: Performed By: #### B MP #### [facility] [address] [place], [place] [address] Dr. Ayden Cam Urea nitrogen [Mass/Vol] 15.0 mg/dL Normal 7.0-18.0 [facility] Comment on above: Performed By: #### B MP #### [facility] [address] [place], [place] [address] Dr. Ayden Cam Urea nitrogen/Creatinine [Mass ratio] 26.8 mg/mg Normal [facility] Comment on above: Performed By: #### B MP #### [facility] [address] [place], [place] [address] Dr. Ayden Cam US Jhony 10-05-2022 US ABD EXAMINATION: US ABD HISTORY: Abdominal pain ; epigastric pain, nausea COMPARISON: No relevant comparison available. TECHNIQUE: High resolution sonographic examination of the abdomen was performed. FINDINGS: LIVER: Normal. Normal size and echotexture. No significant masses. Main portal vein demonstrates normal waveform and flow; 43 cm/s BILIARY: Cholecystectomy. Common bile duct is 10 mm in diameter; not unexpected following cholecystectomy. PANCREAS: Not well seen due to overlying bowel gas. SPLEEN: Normal. Normal size and echotexture. KIDNEYS: Right kidney contains a 2.6 cm benign-appearing cyst. Small stone suspected within inferior pole. Small nonobstructing stone within inferior pole of left kidney.. No mass or obstruction. AORTA/VASCULAR: Normal. No aneurysm. Duplex Doppler demonstrates normal waveform and flow. Unremarkable IVC. OTHER: Negative. IMPRESSION: 1. No acute or suspicious findings to account for patient's symptoms. 2. Limited evaluation of the pancreas due to overlying bowel gas. 3. Nonobstructing nephrolithiasis. Electronically authenticated by: RONAN TORIBIO Date: 2022-10-05 09:52 Normal [facility] XR KUB 1 VIEWon 10-05-2022 XR KUB 1 VIEW EXAMINATION: XR KUB 1 VIEW HISTORY: Abdominal pain ; right upper quadrant pain COMPARISON: No relevant comparison available. FINDINGS: BOWEL GAS PATTERN: Large amount of stool throughout the colon. Bowel sutures within the left upper quadrant and scattered surgical clips. No abnormal bowel dilation. CALCIFICATIONS: None significant. OTHER: Negative. No abnormal gaseous collections. IMPRESSION: 1. No bowel obstruction. Moderate-large stool burden. 2. No acute or suspicious findings to account for patient's symptoms. Electronically authenticated by: RONAN TORIBIO Date: 2022-10-05 09:55 Normal [facility] AMYLASEon 10-04-2022 Amylase [Catalytic activity/Vol] 124 U/L Critically high 25-115 [facility] Comment on above: Performed By: #### L IPA, COLE, CMP #### [facility] [address] [place] [address] Dr. Ayden Cam CBC AUTO DIFFon 10-04-2022 BASO # 0.0 103/ul Normal 0.0-0.1 [facility] Comment on above: Performed By: #### L IPA #### [facility] [address] [place] [address] Dr. Ayden Cam Basophils/100 WBC (Bld) 0.3 % Normal 0.2-2.0 [facility] Comment on above: Performed By: #### L IPA #### [facility] [address] [place] [address] Dr. Ayden Cam EO # 0.2 103/ul Normal 0.0-0.7 [facility] Comment on above: Performed By: #### L IPA #### [facility] [address] [place] [address] Dr. Ayden Cam Eosinophils/100 WBC (Bld) 2.9 % Normal 0.9-7.0 [facility] Comment on above: Performed By: #### L IPA #### [facility] [address] [place] [address] Dr. Ayden aCm Erythrocyte distribution width (RBC) [Ratio] 12.3 % Normal 11.0-15.0 [facility] Comment on above: Performed By: #### L IPA #### [facility] [address] [place] [address] Dr. Ayden Cam Hematocrit (Bld) [Volume fraction] 42.0 % Normal 36.0-48.0 [facility] Comment on above: Performed By: #### L IPA #### [facility] [address] [place] [address] Dr. Ayden Cam Hemoglobin (Bld) [Mass/Vol] 14.3 g/dL Normal 12.0-16.0 [facility] Comment on above: Performed By: #### L IPA #### [facility] [address] [place] [address] Dr. Ayden Cam IG # 0.02 10e3/ul Normal 0.00-0.03 [facility] Comment on above: Performed By: #### L IPA #### [facility] [address] [place] [address] Dr. Ayden Cam IG % 0.3 % Normal 0.0-0.5 [facility] Comment on above: Performed By: #### L IPA #### [facility] [address] [place] [address] Dr. Ayden Cam LYMPH # 1.7 103/ul Normal 1.2-3.8 [facility] Comment on above: Performed By: #### L IPA #### [facility] [address] [place] [address] Dr. Ayden Cam Lymphocytes/100 WBC (Bld) 22.5 % Normal 20.5-60.0 [facility] Comment on above: Performed By: #### L IPA #### [facility] [address] [place] [address] Dr. Ayden Cam MANUAL DIFF REQ NO Normal [facility] Comment on above: Performed By: #### L IPA #### [facility] [address] [place] [address] Dr. Ayden Cam MCH (RBC) [Entitic mass] 30.1 pg Normal 26.7-34.0 [facility] Comment on above: Performed By: #### L IPA #### [facility] [address] [place] [address] Dr. Ayden Cam MCHC (RBC) [Mass/Vol] 34.0 g/dL Normal 29.9-35.2 [facility] Comment on above: Performed By: #### L IPA #### [facility] [address] [address] [address] Ayden Cam MCV (RBC) [Entitic vol] 88.4 fL Normal 81.0-99.0 [facility] Comment on above: Performed By: #### L IPA #### [facility] [address] [address] [address] Ayden Cam MONO # 0.5 103/ul Normal 0.3-0.8 [facility] Comment on above: Performed By: #### L IPA #### [facility] [address] [address] [address] Ayden Cam Monocytes/100 WBC (Bld) 6.0 % Normal 1.7-12.0 [facility] Comment on above: Performed By: #### L IPA #### [facility] [address] [place] [address] Dr. Ayden Cam NEUT # 5.2 103/ul Normal 1.4-6.5 [facility] Comment on above: Performed By: #### L IPA #### [facility] [address] [place] [address] Dr. Ayden Cam Neutrophils/100 WBC (Bld) 68.0 % Normal 43.0-75.0 [facility] Comment on above: Performed By: #### L IPA #### [facility] [address] [address] [address] Ayden Cam Platelet mean volume (Bld) [Entitic vol] 9.6 fL Normal 9.5-13.5 [facility] Comment on above: Performed By: #### L IPA #### [facility] [address] [address] [address] Ayden Cam PLT 183 103/ul Normal 150-450 [facility] Comment on above: Performed By: #### L IPA #### [facility] [address] [address] [address] Ayden Cam RBC 4.75 106/ul Normal 4.20-5.40 [facility] Comment on above: Performed By: #### L IPA #### [facility] [address] [place] [address] Dr. Ayden Cam WBC 7.6 103/ul Normal 4.0-11.0 [facility] Comment on above: Performed By: #### L IPA #### [facility] [address] [place] [address] Dr. Ayden Cam [facility]on SARS-CoV-2 (COVID-19) RNA LOWELL+probe Ql (Unsp spec) Not detected Normal NOT DETECTED [facility] Comment on above: Result Comment: When diagnostic testing is negative, the possibility of a false negative should be considered in the context of a patient's recent exposures and the presence of clinical signs and symptoms consistent with SARS-CoV-2. This test is not yet approved or cleared by the [place] FDA. When there are no FDA-approved or cleared tests available, and other criteria are met, FDA can make tests available under an emergency access mechanism called an Emergency Use Authorization (EUA). The EUA for this test is supported by the Technology Adoption Manager of Health and Human Service's declaration that circumstances exist to justify the emergency use of in vitro diagnostics for the detection and/or diagnosis of the virus that causes COVID-19. This EUA will remain in effect for the duration of the COVID-19 declaration justifying emergency of IVDs, unless it is terminated or revoked by the FDA (after which the test may no longer be used). Performed By: #### L IPA #### [facility] [address] [place] [address] Dr. Ayden Cam ER URINE PROFILEon 3 Bilirubin Ql (U) Negative Normal NEGATIVE [facility] Comment on above: Performed By: #### L ACT #### [facility] [address] [place] [address] Dr. Ayden Cam Clarity (U) CLEAR Normal CLEAR [facility] Comment on above: Performed By: #### L ACT #### [facility] [address] [place] [address] Dr. Ayden Cam Color (U) LT. YELLOW Normal YELLOW [facility] Comment on above: Performed By: #### L ACT #### [facility] [address] [address] [address] Ayden SANTANA A micrscopic examination will be performed if indicated. Normal [facility] Comment on above: Performed By: #### L ACT #### [facility] [address] [address] [address] Ayden Cam Glucose Ql (U) Negative Normal NEGATIVE [facility] Comment on above: Performed By: #### L ACT #### [facility] [address] [address] [address] Ayden Cam Hemoglobin Ql (U) Negative Normal NEGATIVE [facility] Comment on above: Performed By: #### L ACT #### [facility] [address] [address] [address] Ayden Cam Ketones Ql (U) Negative Normal NEGATIVE [facility] Comment on above: Performed By: #### L ACT #### [facility] [address] [address] [address] Ayden Cam LEUKOCYTES Negative Normal NEGATIVE [facility] Comment on above: Performed By: #### L ACT #### [facility] [address] [address] [address] Ayden Cam Nitrite Ql (U) Negative Normal NEGATIVE [facility] Comment on above: Performed By: #### L ACT #### [facility] [address] [place] [address] Dr. Ayden Cam pH (U) 8.5 [pH] Normal 5-9 [facility] Comment on above: Performed By: #### L ACT #### [facility] [address] [address] [address] Ayden Cam SPEC GRAVITY 1.015 Normal 1.005-<=1.02 5 [facility] Comment on above: Performed By: #### L ACT #### [facility] [address] [place] [address] Dr. Ayden Cam UA PROTEIN Negative Normal NEGATIVE/ TRACE [facility] Comment on above: Performed By: #### L ACT #### [facility] [address] [address] [address] Ayden Cam UR MICRO IND NOT INDICATED Normal [facility] Comment on above: Performed By: #### L ACT #### [facility] [address] [place] [address] Dr. Ayden Cam Urobilinogen Qn (U) 0.2 {Peggy'U}/dL Normal 0.2 - 1. 0 [facility] Comment on above: Performed By: #### L ACT #### [facility] [address] [place] [address] Dr. Ayden Cam LACTATE/LACTIC ACIDon 2022 Lactate [Moles/Vol] 0.8 mmol/L Normal 0.4-1.9 [facility] Comment on above: Performed By: #### L ACT #### [facility] [address] [place] [address] Dr. Ayden Cam LIPASEon 10-04-2022 Lipase [Catalytic activity/Vol] 170.0 U/L Normal 73.0-393.0 [facility] Comment on above: Performed By: #### L ACT #### [facility] [address] [place] [address] Dr. Ayden Cam PROF 14(COMP METB)on 023 Albumin [Mass/Vol] 3.8 g/dL Normal 3.4-5.0 [facility] Comment on above: Performed By: #### L ACT #### [facility] [address] [place] [address] Dr. Ayden Cam Albumin/Globulin [Mass ratio] 1.1 {ratio} Normal [facility] Comment on above: Performed By: #### L ACT #### [facility] [address] [place] [address] Dr. Ayden Cam ALP [Catalytic activity/Vol] 101 U/L Normal 46-116 [facility] Comment on above: Performed By: #### L ACT #### [facility] [address] [place] [address] Dr. Ayden Cam ALT [Catalytic activity/Vol] 94 U/L Critically high 14-59 [facility] Comment on above: Performed By: #### L ACT #### [facility] [address] [address] [address] Ayden Cam Anion gap [Moles/Vol] 11.1 mmol/L Normal [facility] Comment on above: Performed By: #### L ACT #### [facility] [address] [address] [address] Ayden Cam AST [Catalytic activity/Vol] 59 U/L Critically high 15-37 [facility] Comment on above: Performed By: #### L ACT #### [facility] [address] [address] [address] Ayden Cam Bilirubin [Mass/Vol] 0.3 mg/dL Normal 0.2-1.0 [facility] Comment on above: Performed By: #### L ACT #### [facility] [address] [address] [address] Ayden Cam Calcium [Mass/Vol] 9.5 mg/dL Normal 8.5-10.1 [facility] Comment on above: Performed By: #### L ACT #### [facility] [address] [address] [address] Ayden Cam Chloride [Moles/Vol] 99 mmol/L Normal 98-107 [facility] Comment on above: Performed By: #### L ACT #### [facility] [address] [address] [address] Ayden Cam CO2 [Moles/Vol] 29.7 mmol/L Normal 21.0-32.0 [facility] Comment on above: Performed By: #### L ACT #### [facility] [address] [address] [address] Ayden Cam Creatinine [Mass/Vol] 0.61 mg/dL Normal 0.55-1.02 [facility] Comment on above: Performed By: #### L ACT #### [facility] [address] [address] [address] Ayden Cam EGFR-AF MALTESE >60 Normal >=60 [facility] Comment on above: Performed By: #### L ACT #### [facility] [address] [place] [address] Dr. Ayden Cam EGFR-NON AF MALTESE >60 Normal >=60 [facility] Comment on above: Performed By: #### L ACT #### [facility] [address] [address] [address] Ayden Cam Globulin (S) [Mass/Vol] 3.4 g/dL Normal [facility] Comment on above: Performed By: #### L ACT #### [facility] [address] [address] [address] Ayden Cam Glucose [Mass/Vol] 111 mg/dL Critically high 74-106 T [facility] Comment on above: Performed By: #### L ACT #### [facility] [address] [place] [address] Dr. Ayden Cam Potassium [Moles/Vol] 3.8 mmol/L Normal 3.5-5.1 [facility] Comment on above: Performed By: #### L ACT #### [facility] [address] [place] [address] Dr. Ayden Cam Protein [Mass/Vol] 7.2 g/dL Normal 6.4-8.2 [facility] Comment on above: Performed By: #### L ACT #### [facility] [address] [place] [address] Dr. Ayden Cam Sodium [Moles/Vol] 136 mmol/L Normal 136-145 [facility] Comment on above: Performed By: #### L ACT #### [facility] [address] [place] [address] Dr. Ayden Cam Urea nitrogen [Mass/Vol] 23.0 mg/dL Critically high 7.0-18.0 [facility] Comment on above: Performed By: #### L ACT #### [facility] [address] [place] [address] Dr. Ayden Cam Urea nitrogen/Creatinine [Mass ratio] 37.7 mg/mg Normal [facility] Comment on above: Performed By: #### L ACT #### [facility] [address] [place] [address] Dr. Ayden Cam TROPONIN, HIGH SENSITIVITYon 10-04-2022 HSTROP 8.9 pg/mL Normal 4.0-51.3 [facility] Comment on above: Result Comment: CUT- OFF POINTS HAVE BEEN ESTABLISHED BASED ON THE FOURTH UNIVERSAL DEFINITIONS OF MYOCARDIAL INFARCTION. THE UPPER REFERENCE LIMIT (URL) OF TROPONIN, DEFINED THE 99TH PERCENTILE OF cTnI DISTRIBUTION IN A REFERENCE POPULATION, HAS BEEN CONFIRMED THE DECISION THRESHOLD FOR VA DIAGNOSIS. Performed By: #### L ACT #### [facility] [address] [place] [address] Dr. Ayden Cam LIPID PROFILEon 09-19-2022 CHOL-HDL RATIO NORM SEE BELOW Normal [facility] Comment on above: Result Comment: 3.3 - 4.4 LOW RISK 4.4 - 7.1 AVERAGE RISK 7.1 - 11.0 MODERATE RISK >11.0 HIGH RISK Performed By: #### L IPA #### [facility] [address] [place] [address] Dr. Ayden Cam Cholesterol [Mass/Vol] 116 mg/dL Normal <=200 [facility] Comment on above: Performed By: #### L IPA #### [facility] [address] [place] [address] Dr. Ayden Cam Cholesterol in HDL [Mass/Vol] 59 mg/dL Normal 40-60 [facility] Comment on above: Performed By: #### L IPA #### [facility] [address] [place] [address] Dr. Ayden Cam Cholesterol in LDL [Mass/Vol] 34.0 mg/dL Normal [facility] Comment on above: Performed By: #### L IPA #### [facility] [address] [place] [address] Dr. Ayden Cam Cholesterol.total/Chol esterol in HDL [Mass ratio] 2.0 {ratio} Normal [facility] Comment on above: Performed By: #### L IPA #### [facility] [address] [place] [address] Dr. Ayden Cam HDL NORMAL > or = 60 mg/dl - LOW CARDIOVASCULAR RISK <40 mg/dl - HIGH CARDIOVASCULAR RISK Normal [facility] Comment on above: Performed By: #### L IPA #### [facility] [address] [address] [address] Ayden Cam LDL CALC NORMAL SEE BELOW Normal [facility] Comment on above: Result Comment: <100 mg/dl OPTIMAL 100 - 129 mg/dl NEAR OR ABOVE OPTIMAL 130 - 159 mg/dl BORDERLINE HIGH 160 - 189 mg/dl HIGH >190 mg/dl VERY HIGH Performed By: #### L IPA #### [facility] [address] [address] [address] Ayden Cam Triglyceride [Mass/Vol] 115 mg/dL Normal <=150 [facility] Comment on above: Performed By: #### L IPA #### [facility] [address] [address] [address] Ayden Cam VLDL CALC 23.0 mg/dL Normal [facility] Comment on above: Performed By: #### L IPA #### [facility] [address] [place] [address] Dr. Ayden Cam VITAMIN D 25 OHon 09-19-2022 VIT D 25-OH 89.3 ng/mL Normal [facility] Comment on above: Performed By: #### V ITAD #### [facility] [address] [address] [address] Ayden Cam VIT D RANGES SEE BELOW Normal [facility] Comment on above: Result Comment: <20 ng/mL Vit D deficient 20 - <30 ng/mL Vit D insufficient 30 - 100 ng/mL Vit D sufficient >100 ng/mL Potential Toxicity Performed By: #### V ITAD #### [facility] [address] [address] [address] Ayden Cam Office Visit (Cardiology)on 08-15-2022 Follow-up visit Diagnoses/Problems Assessed Atherosclerosis of coronary artery of [place] heart without angina pectoris (414.01) (I25.10) History of coronary artery bypass graft (V45.81) (Z95.1) Ischemic cardiomyopathy (414.8) (I25.5) Hyperlipidemia (272.4) (E78.5) Essential hypertension, benign (401.1) (I10) Never a smoker Overweight with body mass index (BMI) of 26 to 26.9 in adult (278.02,V85.22) (E66.3,Z68.26) Paroxysmal SVT (supraventricular tachycardia) (427.0) (I47.1) Orders Atherosclerosis of coronary artery of [place] heart without angina pectoris, Essential hypertension, benign, Hyperlipidemia Basic Metabolic Panel; Status:Active - Retrospective Authorization; Requested for:[id number]; Lipid Panel; Status:Active - Retrospective Authorization; Requested for:[id number]; Overweight with body mass index (BMI) of 26 to 26.9 in adult Healthy Weight Tips; Status:Complete - Retrospective Authorization; Done: [id number] Some eating tips that can help you lose weight.; Status:Complete - Retrospective Authorization; Done: [id number] SocHx: Never a smoker Tobacco Use Screening; Status:Complete; Done: [id number] Patient Instructions Please bring all medicines, vitamins, and herbal supplements with you when you come to the office. Prescriptions will not be filled unless you are compliant with your follow up appointments or have a follow up appointment scheduled as per instruction of your physician. Refills should be requested at the time of your visit. Follow up in 1 year. Chief Complaint Patient did not bring medication list or bottles. Updated verbally with patient JOSE ALBERTO SALEEM is being seen for an annual follow-up of. 57-year-old female here for follow-up and is doing very well she has no cardiovascular complaints. She denies any angina, hospitalizations, heart failure or nitrate usage. She remains on aspirin and atorvastatin as really her only primary therapies for cardiovascular therapy and secondary prevention. She has a history of prior inferior VA, prior PCI with subsequent three-vessel CABG and then subsequent PCI of the circumflex OM branch 2013. Last ischemic evaluation in 2017 was normal. She will likely need another ischemic evaluation within the next 1 to 2 years but remains active without anginal symptomatology Recommendations, continue current therapies obtain lipid panel follow-up in 1 year Surgical History Problems History of Appendectomy History of Carpal tunnel surgery History of Cataract surgery History of Cholecystectomy History of Complete colonoscopy History of Coronary artery bypass graft History of Gastric bypass surgery History of Hernia repair History of Kidney surgery History of Nose surgery History of Ulnar nerve neuroplasty Current Meds Medication NameInstruction Aciphex 20 MG Oral Tablet Delayed ReleaseTAKE 1 TABLET TWICE DAILY. Aspirin 81 MG Oral Tablet Delayed ReleaseTAKE 1 TABLET DAILY. Atorvastatin Calcium 20 MG Oral TabletTake 1 tablet once daily Calcium TABSTAKE 1 TABLET 3 times daily Cevimeline HCl - 30 MG Oral CapsuleTAKE 1 CAPSULE 4 TIMES DAILY Colace 100 MG Oral CapsuleTAKE 1 CAPSULE TWICE DAILY. Diclofenac Sodium 3 % External GelAPPLY SPARINGLY TO THE AFFECTED AREA(S) TWICE DAILY. Fluticasone Propionate 50 MCG/ACT Nasal SuspensionUSE 1 SPRAY IN EACH NOSTRIL TWICE DAILY. hydroCHLOROthiazide 12.5 MG Oral TabletTAKE 0.5 TABLET Daily Mometasone Furoate 0.1 % External CreamAPPLY SPARINGLY TO AFFECTED AREAS TWICE DAILY.(AM AND PM). Multi Vitamin Oral TabletTake 1 tablet twice daily Nitroglycerin 0.4 MG Sublingual Tablet SublingualPLACE 1 TABLET UNDER THE TONGUE EVERY 5 MINUTES FOR UP TO 3 DOSES NEEDED FOR CHEST PAIN.CALL 911 IF PAIN PERSISTS. Nyamyc [id number] UNIT/GM External Powderapply topically to affected area twice a day if needed PreserVision AREDS Oral CapsuleTAKE 2 CAPSULE Twice daily Tamsulosin HCl - 0.4 MG Oral CapsuleTAKE 1 CAPSULE Daily Allergies Medication Baclofen TABS Adverse Reaction; Shortness of breath;; Recorded By: Jennifer Jean; 08/17/2021 9:42:39 AM Bactrim TABS Allergy; Hives;; Recorded By: Jennifer Jean; 08/17/2021 9:42:39 AM Sulfa Drugs Allergy; Hives;; Recorded By: Jennifer Jean; 08/17/2021 9:42:39 AM Crestor TABS Adverse Reaction; Elevated hepatic enzymes; Recorded By: Jennifer Jean; 08/17/2021 9:42:39 AM Penicillins Allergy; Rash; Recorded By: Jennifer Jean; 08/17/2021 9:42:39 AM NonMedication Latex Adverse Reaction; Shortness of breath;; Recorded By: Jennifer Jean; 08/17/2021 9:42:39 AM Social History Problems Denied: History of Caffeine use Denied: History of Illicit drug use Never a smoker No alcohol use Review of Systems Constitutional: not feeling tired. Cardiovascular: no intermittent leg claudication and as noted in HPI. Respiratory: no cough and no shortness of breath. Gastrointestinal: no change in bowel habits and no blood in stools. Integumentary: no s (more content not included)... Normal Departing Tobacco Screening.on Adult depression screening assessment No [facility] [address] DO Work Phone: Fall risk assessment a) No falls within the last year [facility] [address] DO Work Phone: Tobacco use status [facility] b) No [facility] [employer] [address] DO Work Phone: MRI Ankle w/o Lefton MRI Ankle w/o Left HISTORY: Dog jumped on ankle 2 months ago. Anterior and lateral pain since the injury. TECHNIQUE: Routine MRI of the ankle/hindfoot and portions of the midfoot, left side Comparison: Radiographs 06/13/2022. RESULT: Cartilage: Tibiotalar joint cartilage and subtalar joint cartilage appears to be preserved. Ligaments: Talofibular ligaments, tibiofibular ligaments, calcaneofibular ligament and deltoid ligament all appear to be intact. Tendons: Achilles tendon appears intact with mild tendinosis. Extensor tendons appear intact. Medial flexor tendons appear intact. Small split tear involving peroneus brevis in the retromalleolar groove without tendon retraction. Peroneus longus appears intact. Joint Fluid: Physiologic quantity of joint fluid. Bone Marrow: Bone marrow signal intensity is within normal limits without evidence of fracture, osteochondral lesion, osteomyelitis or other marrow replacing lesion. Plantar Aponeurosis: Mild to moderate thickening, especially of the central band at origin, without tear, with associated enthesophyte. Sinus Tarsi: Sinus tarsi is within normal limits. Muscle: Muscle bulk and signal intensity is within normal limits. Tarsal Tunnel: Tarsal tunnel is within normal limits. Other: No other significant abnormality. IMPRESSION: Small split tear involving peroneus brevis. Mild Achilles tendinosis. Otherwise tendons appear intact. Mild to moderate plantar fasciitis without tear. Report reported and signed by Wilder Arango on 08/01/2022 1102 Normal [facility] [employer] Tobacco Screening.on Tobacco use status [facility] b) No [facility] DO Work Phone: Vital Signs Date Time Vital Sign Value Performing Clinician Facility 08-14-2023 15:29-0500 Body height 161.3 cm Ramandeep Garibay DO Work Phone: [facility] 08-14-2023 15:29-0500 Body mass index (BMI) [Ratio] 28.07 kg/m2 Ramandeep Garibay DO Work Phone: [facility] 08-14-2023 15:29-0500 Body weight 73.03 kg Ramandeep Garibay DO Work Phone: [facility] 08-14-2023 15:29-0500 Diastolic blood pressure 80 mm[Hg] Ramandeep Garibay DO Work Phone: [facility] 08-14-2023 15:29-0500 Heart rate 56 /min Ramandeep Garibay DO Work Phone: [facility] 08-14-2023 15:29-0500 Systolic blood pressure 138 mm[Hg] Ramandeep Garibay DO Work Phone: [facility] 06-18-2023 15:15-0400 Diastolic blood pressure 78 mm[Hg] Gaby Tello DO Work Phone: [employer] 06-18-2023 15:15-0400 Heart rate 70 /min Gaby Novoag DO Work Phone: [employer] 06-18-2023 15:15-0400 Respiratory rate 18 /min Gaby Novoag DO Work Phone: [employer] 06-18-2023 15:15-0400 SaO2% (BldA) [Mass fraction] 96 % Gaby Novoag DO Work Phone: [employer] 06-18-2023 15:15-0400 Systolic blood pressure 173 mm[Hg] Gaby Jenkinsy Tello DO Work Phone: [employer] 06-18-2023 14:36-0400 Body temperature 97 [degF] Gaby Jenkinsy Tello DO Work Phone: [employer] 06-18-2023 13:30-0400 Body height 160 cm [facility]ello DO [email or web address] 06-18-2023 13:30-0400 Body mass index (BMI) [Ratio] 27.03 kg/m2 Gaby Tello DO Work Phone[email or web address] 06-18-2023 13:30-0400 Body weight 69.22 kg Gaby Tello DO Work Phone[facility] 11-02-2022 15:02-0500 Diastolic blood pressure 84 mm[Hg] MD Ashley Dejesus Work Phone: [facility] 11-02-2022 15:02-0500 Heart rate 78 /min MD Ashley Dejesus Work Phone: [facility] 11-02-2022 15:02-0500 Respiratory rate 18 /min MD Ashley Dejesus Work Phone: [facility] 11-02-2022 15:02-0500 SaO2% (BldA) [Mass fraction] 100 % MD Ashley Dejesus Work Phone: [facility] 11-02-2022 15:02-0500 Systolic blood pressure 161 mm[Hg] MD Ashley Dejesus Work Phone: [facility] 11-02-2022 13:20-0500 Body height 160.02 cm MD Ashley Dejesus Work Phone: [facility] 11-02-2022 13:20-0500 Body temperature 98.2 [degF] MD Ashley Dejesus Work Phone: [facility] 11-02-2022 13:20-0500 Body weight 60.78 kg MD Ashley Dejesus Work Phone: [facility] 11-01-2022 13:26-0500 Diastolic blood pressure 61 mm[Hg] MD Ashley Dejesus Work Phone: [facility] 11-01-2022 13:26-0500 Heart rate 59 /min MD Ashely Dejesus Work Phone: [facility] 11-01-2022 13:26-0500 Respiratory rate 20 /min MD Ashley Dejesus Work Phone: [facility] 11-01-2022 13:26-0500 SaO2% (BldA) [Mass fraction] 99 % MD Ashley Dejesus Work Phone: [facility] 11-01-2022 13:26-0500 Systolic blood pressure 124 mm[Hg] MD Ashley Dejesus Work Phone: [facility] 11-01-2022 10:53-0500 Body height 160.02 cm MD Ashley Dejesus Work Phone: [facility] 11-01-2022 10:53-0500 Body temperature 97.7 [degF] MD Ashley Dejesus Work Phone: [facility] 11-01-2022 10:53-0500 Body weight 61.68 kg MD Ashley Dejesus Work Phone: [facility] 10-24-2022 15:45-0500 Body height 159.38 cm Imad Asaad Other [facility] [employer] Other 10-24-2022 15:45-0500 Body mass index (BMI) [Ratio] 24.28 kg/m2 Imad Asaad Other [employer] Other 10-24-2022 15:45-0500 Body weight 61.69 kg Imad Asaad Other [employer] Other 10-24-2022 15:45-0500 Diastolic blood pressure 94 mm[Hg] Imad Asaad Other [employer] Other 10-24-2022 15:45-0500 Systolic blood pressure 133 mm[Hg] Imad Asaad Other [facility] [employer] Other 09-19-2022 00:00-0500 34 1 Ashley M Hoy Work Phone: [facility] 250 DO Work Phone: Comment on above: [facility] 08-15-2022 15:23-0500 Body height 160.02 cm Ashley M Hoy Work Phone: [facility] 250 DO Work Phone: 08-15-2022 15:23-0500 Body mass index (BMI) [Ratio] 26.22 kg/m2 Ashley M Hoy Work Phone: [facility] DO Work Phone: 08-15-2022 15:23-0500 Body surface area Derived from formula 1.7 m2 Ashley M Hoy Work Phone: [facility] DO Work Phone: 08-15-2022 15:23-0500 Body weight 67.13 kg Ashley M Hoy Work Phone: [facility] DO Work Phone: 08-15-2022 15:23-0500 Diastolic blood pressure 82 mm[Hg] Ashley M Hoy Work Phone: [facility] 250 DO Work Phone: 08-15-2022 15:23-0500 Heart rate 80 /min Ashley M Hoy Work Phone: [facility] 250 DO Work Phone: 08-15-2022 15:23-0500 Systolic blood pressure 132 mm[Hg] Ashley M Hoy Work Phone: [facility] DO Work Phone: 06-02-2022 08:12-0400 Blood Pressure Location Santiago CARRILLO [facility] 06-02-2022 08:12-0400 Diastolic blood pressure 86 mm[Hg] Santiago CARRILLO [facility] 06-02-2022 08:12-0400 Heart rate 60 /min Santiago CARRILLO [facility] 06-02-2022 08:12-0400 Respiratory rate 16 /min Santiago CARRILLO [facility] 06-02-2022 08:12-0400 Systolic blood pressure 144 mm[Hg] Santiago CARRILLO [facility] 08-17-2021 09:47-0500 Body height 160.02 cm Ashley M Hoy Work Phone: [facility] 250 DO Work Phone: 08-17-2021 09:47-0500 Body mass index (BMI) [Ratio] 25.01 kg/m2 Ashley M Hoy Work Phone: [facility] 250 DO Work Phone: 08-17-2021 09:47-0500 Body surface area Derived from formula 1.67 m2 Ashley M Hoy Work Phone: [facility] DO Work Phone: 08-17-2021 09:47-0500 Body weight 64.05 kg Ashley M Hoy Work Phone: [facility] 250 DO Work Phone: 08-17-2021 09:47-0500 Diastolic blood pressure 86 mm[Hg] Ashley M Hoy Work Phone: [facility] DO Work Phone: 08-17-2021 09:47-0500 Heart rate 72 /min Ashley Dejesus Work Phone: [facility] [facility] DO Work Phone: 08-17-2021 09:47-0500 Systolic blood pressure 134 mm[Hg] Ashley Dejesus Work Phone: [facility] 250 DO Work Phone: Encounters Encounter Date Encounter Type Care Provider Facility Start: 02-13-2024 ambulatory JENNIFER Perez ty:[facility] Start: 01-17-2024 End: 01-17-2024 ambulatory [facility] Start: 09-13-2023 End: 09-13-2023 ambulatory ALNIA JAVIER Not Available Start: 08-14-2023 End: 08-14-2023 ambulatory [facility] Start: 08-14-2023 End: 08-14-2023 Office outpatient visit 15 minutes [facility] DO Work Phone: [facility] Comment on above: Atherosclerosis of c oronary artery of [place] heart without angina pectoris, unspecified vessel or lesion type; History of coronary artery bypass graft; Ischemic cardiomyopathy; Essential hypertension, benign Start: 06-18-2023 End: 06-18-2023 ambulatory GABYLEN ENGEL [facility] Start: 06-18-2023 End: 06-18-2023 [facility] [place] [facility] Work Phone: [facility] Comment on above: Post-menopausal blee ding; Inclusion cyst Start: 05-24-2023 Rx Renewal Ashley Dejesus Work Phone: [facility] 250 DO Work Phone: Start: 05-17-2023 Patient encounter procedure Ashley Dejesus Work Phone: [facility] [facility] DO Work Phone: Start: 05-15-2023 ambulatory ASHLEY DEJESUS [facility] Start: 12-12-2022 End: 12-12-2022 ambulatory Imad Asaad Facility:[facility] Start: 12-12-2022 End: 12-12-2022 ambulatory MD Ashley Dejesus Work Phone: [facility] Work Phone: Start: 12-12-2022 End: 12-12-2022 Patient encounter procedure MD Ashley Dejesus Work Phone: [facility] Work Phone: Start: 11-20-2022 End: 11-20-2022 ambulatory Imad Asaad Other [facility] [employer] Other Start: 11-20-2022 Telephone encounter Imad Asaad [facility] Start: 11-10-2022 End: 11-10-2022 ambulatory Imad Asaad Facility:[facility] Start: 11-10-2022 End: 11-10-2022 Patient encounter procedure MD Ashley Dejesus Work Phone: [facility] [place] Work Phone: Start: 11-02-2022 End: 11-02-2022 ambulatory Imad Asaad Facility:[facility] Start: 11-02-2022 End: 11-02-2022 Admission to same day surgery center MD Ashley Dejesus Work Phone: [facility] Work Phone: Start: 11-02-2022 End: 11-02-2022 ambulatory MD Ashley Dejesus Work Phone: [facility] Work Phone: Start: 11-01-2022 Telephone encounter Imad Asaad [facility] Start: 11-01-2022 End: 11-01-2022 ambulatory Imad Asaad Facility:[facility] Start: 11-01-2022 End: 11-01-2022 Admission to same day surgery center MD Ashley Dejesus Work Phone: [facility] Work Phone: Start: 11-01-2022 End: 11-01-2022 ambulatory MD Ashley Dejesus Work Phone: [facility] Work Phone: Start: 10-24-2022 End: 10-24-2022 ambulatory Evert Bruno Other [facility] [employer] Other Start: 10-24-2022 FQHC visit new patient Evert Bruno [facility] Start: 10-16-2022 End: 10-17-[address] ASHLEY DEJESUS Facility:[facility] Start: 10-09-2022 End: 10-10-[address] ASHLEY DEJESUS Facility:[facility] Start: 10-05-2022 Rx Renewal Ashley Dejesus Work Phone: [facility] [address] DO Work Phone: Start: 10-04-2022 End: 10-06-[address] ASHLEY DEJESUS Facility:[facility] Start: 09-19-2022 End: 09-20-[address] DOCTOR PATEL Facility:[facility] Start: 08-15-2022 Office outpatient vi sit 15 minutes Ashley Dejesus Work Phone: [facility] [address] DO Work Phone: Start: 08-15-2022 Patient encounter procedure Ashley Dejesus Work Phone: [facility] [address] DO Work Phone: Start: 06-02-2022 End: 06-02-2022 Patient encounter procedure Santiago CARRILLO [facility] Start: 05-31-2022 Rx Renewal Ashley Dejesus Work Phone: [facility] [address] DO Work Phone: Start: 02-07-2022 End: 02-07-2022 Patient encounter procedure Ashley Dejesus MD Work Phone: [facility] Start: 02-07-2022 End: 02-07-2022 Subsequent hospital visit by physician Ashley Dejesus MD Work Phone: [facility] Comment on above: Women's annual routi ne gynecological examination Start: 11-21-2021 Rx Renewal Ashley Tyree Anjelica Work Phone: [facility] 250 DO Work Phone: Start: 08-17-2021 Office outpatient vi sit 15 minutes Ashley Tyree Anjelica Work Phone: [facility] [address] DO Work Phone: Start: 08-19-2019 End: 08-19-2019 Subsequent hospital visit by physician Ashley CABEZAS Laboratory Comment on above: Well female exam wit h routine gynecological exam Start: 08-29-2017 Ambulatory PROVIDER UNKNOWN Facili ty:[id number] Start: 08-27-2017 Ambulatory PROVIDER UNKNOWN Facili ty:[id number] Start: 08-27-2017 Ambulatory Facility:[id number] Procedures Date Procedure Procedure Detail Performing Clinician Start: 08-14-2023 Alanine aminotransferase [Enzymatic activity/volume] in Serum or Plasma RAMANDEEP GARIBAY Start: 08-14-2023 Lipid panel RAMANDEEP GARIBAY Start: 08-09-2023 History of coronary artery bypass grafting History of coronary artery bypass graft Ramandeep Garibay DO Work Phone: Start: 12-12-2022 Ultrasound elastography of liver MD Deacon Dejesus Work Phone: Start: 11-10-2022 Magnetic resonance cholangiopancreatography MD Ashley Dejesus Work Phone: Start: 11-02-2022 Colonoscopy MD Ashley Dejseus Work Phone: Start: 11-01-2022 Colonoscopy MD Ashley Dejesus Work Phone: Start: 07-24-2022 Mammography Ramandeep Garibay DO Work Phone: Start: 02-07-2022 Microscopic observation [Identifier] in Cervix by Cyto stain Gaby Tello DO Work Phone: Start: 11-01-2019 Excision of ganglion cyst Santiago CARRILLO Start: 08-19-2019 Microscopic observation [Identifier] in Cervix by Cyto stain Ashley Dejesus MD Work Phone: Appendectomy Ashley Dejesus Work Phone: Appendectomy Santiago CARRILLO Bypass of stomach Santiago GALVAN Cataract surgery Ashley M H oy Work Phone: Cholecystectomy Ashley Clements Ho y Work Phone: Coronary artery bypass graft Ashley M Duyy Work Phone: Coronary artery bypa ss graft operation planned Santiago CARRILLO Decompression of median nerve Ashley Dejesus Work Phone: Esophagogastrostomy, antesternal or antethoracic Ashley M Hoy Work Phone: History of coronary artery bypass grafting History of coronary artery bypass graft Ashley M Hoy Work Phone: History of coronary artery bypass grafting History of coronary artery bypass graft Ramandeep Garibay DO Work Phone: Kidney operation Ashley M H oy Work Phone: Operation on nose Ashley Dejesus Work Phone: Peripheral neuroplasty Cecilio as Tyree Dejesus Work Phone: Repair of inguinal hernia Phani milesk CARRILLO Total colonoscopy Ashley Dejesus Work Phone: Plan of Treatment Date Care Activity Detail Author Start: 02-07-2027 Screening for malignant neoplasm of cervix [facility] [employer] Start: 02-07-2025 Screening for malignant neoplasm of cervix Pap smear [facility] [employer] Start: 08-19-2024 Screening for malignant neoplasm of cervix [employer] Start: 08-13-2024 End: 08-13-2024 Patient encounter procedure 08/13/2024 11:30 AM EST Office Visit [address] [address] Ramandeep Garibay DO [address] [facility] [address] [place] [address] [facility] Start: 02-14-2024 Depression Screen Depression Screen [facility] Start: 02-12-2024 End: 08-14-2024 Alanine aminotransferase [Enzymatic activity/volume] in Serum or Plasma by With P-5'-P Alanine Aminotransferase Lab Routine History of coronary artery bypass graft Ischemic cardiomyopathy Expected: 02/12/2024 (Approximate), Expires: 08/14/2024 [facility] Work Phone: Comment on above: Expected: 02/12/2024 (Approximate), Expi res: 08/14/2024 Start: 02-12-2024 End: 08-14-2024 Aspartate aminotransferase [Enzymatic activity/volume] in Serum or Plasma by With P-5'-P Aspartate Aminotransferase Lab Routine Atherosclerosis of coronary artery of [place] heart without angina pectoris, unspecified vessel or lesion type Ischemic cardiomyopathy Expected: 02/12/2024 (Approximate), Expires: 08/14/2024 [facility] Work Phone: Comment on above: Expected: 02/12/2024 (Approximate), Expi res: 08/14/2024 Start: 02-12-2024 End: 08-14-2024 Lipid 1996 panel - Serum or Plasma Lipid Panel Lab Routine Atherosclerosis of coronary artery of [place] heart without angina pectoris, unspecified vessel or lesion type Expected: 02/12/2024 (Approximate), Expires: 08/14/2024 [facility] Work Phone: Comment on above: Expected: 02/12/2024 (Approximate), Expi res: 08/14/2024 Start: 08-14-2023 FUV, Provider: Ramandeep Garibay, Status: Pen, Time: 3:00 PM FUV, Provider: Ramandeep Garibay, Status: Julio, Time: 3:00 PM -[facility] [address] DO Work Phone: Start: 07-28-2023 Screening for malignant neoplasm of breast Breast cancer screen [facility] Start: 07-24-2023 Screening for malignant neoplasm of breast Mammogram [facility] Start: 07-03-2023 End: 07-03-2023 Patient encounter procedure 07/03/2023 4:45 PM EDT Office Visit [facility] [address] [place] [address] Gaby Chahal, DO [address] [place] [address] post-op BA 05/16 [facility] Comment on above: post-op BA 05/16 Start: 06-18-2023 End: 06-18-2023 Hysteroscopy bx endometrium&/polypc w/wo d&c DILATATION AND CURETTAGE HYSTEROSCOPY Post-menopausal bleeding Inclusion cyst 06/18/2023 2:01 PM EDT [facility] Start: 02-13-2023 End: 02-13-2023 Patient encounter procedure 02/13/2023 Office Visit Obstetrics and Gynecology Gaby Chahal, DO [address] [place] [address] [facility] Start: 12-12-2022 [facility] Start: 11-02-2022 [facility] Start: 11-01-2022 [facility] Start: 08-19-2022 Screening for malignant neoplasm of cervix Pap smear [facility] Start: 08-15-2022 FUV, Provider: Ramandeep Garibay, Status: Pen, Time: 3:00 PM FUV, Provider: Ramandeep Garibay, Status: Pen, Time: 3:00 PM [facility] 250 DO Work Phone: Start: 08-03-2022 Lipid panel Lipids [facility] Start: 09-26-2021 COVID-19 Vaccine (4 - Pfizer series) COVID-19 Vaccine (4 - Pfizer series) [facility] Start: 06-01-2019 Influenza vaccination Flu vaccine (#1) [place] Start: 05-09-2018 Pneumococcal Vaccine: Pediatrics (0 to 5 Years) and At-Risk Patients (6 to 64 Years) (2 - PCV) Pneumococcal Vaccine: Pediatrics (0 to 5 Years) and At-Risk Patients (6 to 64 Years) (2 - PCV) [facility] Start: 2014 Breast cancer screen Breast cancer screen [place], [place] Start: 2014 Colon cancer screen colonoscopy Colon cancer screen colonoscopy [place], [place] Start: 2014 Shingles Vaccine (1 of 2) Shingles Vaccine (1 of 2) [facility] Start: 08-26-2009 MMR Vaccines (1 of 1 - Standard series) MMR Vaccines (1 of 1 - Standard series) [facility] Start: 2009 Screening for malignant neoplasm of colon [facility] Start: 1999 Diabetes screen Diabetes screen [facility] Start: 1986 DTaP/Tdap/Td Vaccines (1 - Tdap) DTaP/Tdap/Td Vaccines (1 - Tdap) [facility] Start: 1985 Cervical cancer screen Cervical cancer screen [place], [place] Start: 1985 Screening for malignant neoplasm of cervix [facility] Start: 1983 DTaP/Tdap/Td vaccine (1 - Tdap) DTaP/Tdap/Td vaccine (1 - Tdap) [facility] Start: 1982 Diabetes mellitus screening Diabetes Screening [facility] Start: 1982 Hepatitis C screening [facility] Start: 1979 HIV screen HIV screen [place], [place] Start: 1979 HIV screening HIV screen [facility] Start: 1976 Depression Screen Depression Screen [facility] Start: 1975 DTaP/Tdap/Td vaccine (1 - Tdap) DTaP/Tdap/Td vaccine (1 - Tdap) [place] Start: 1974 Lipid panel Lipids [facility] Start: 1974 Lipid screen Lipid screen [place], [place] Start: 1964 Hepatitis B vaccine (1 of 3 - 3-dose series) Hepatitis B vaccine (1 of 3 - 3-dose series) [facility] [employer] Start: 1964 Hepatitis B Vaccines (1 of 3 - 3-dose series) Hepatitis B Vaccines (1 of 3 - 3-dose series) [facility] Start: 1964 Hepatitis C screen Hepatitis C screen [facility] [employer] Start: 1964 HIV screening HIV Screening [facility] Start: 1964 Lipid panel Lipid Panel [facility] Start: 1964 Screening for malignant neoplasm of colon [facility] Start: 1964 Yearly Adult Physical Yearly Adult Physical [facility] Actin smooth muscle IgG Ab [Units/volume] in Serum [facility] Alpha 1 antitrypsin [Mass/volume] in Serum or Plasma [facility] Alpha 1 antitrypsin phenotyping [Identifier] in Serum or Plasma by Immunofixation [facility] Ceruloplasmin [Mass/volume] in Serum or Plasma [facility] End: 08-19-2019 Cytopathology procedure, preparation of smear, genital source PAP SMEAR Lab Routine Well female exam with routine gynecological exam 1 Occurrences starting 08/19/2019 until 08/19/[facility]: 1 Occurrences starting 08/19/2019 until 08/19/2019 End: 02-07-2022 Cytopathology procedure, preparation of smear, genital source PAP SMEAR Lab Routine Women's annual routine gynecological examination 1 Occurrences starting 02/07/2022 until 02/07/2022 [employer] Work Phone: Comment on above: 1 Occurrences starting 02/07/2022 until 02/07/2022 Hepatitis A virus Ab [Presence] in Serum by Immunoassay [facility] Hepatitis B core ant ibody measurement [facility] Hepatitis B virus khanna rface Ab [Presence] in Serum [facility] Hepatitis B virus khanna rface Ag [Presence] in Serum or Plasma by Immunoassay [facility] Hepatitis C virus Ig G Ab [Presence] in Serum or Plasma by Immunoassay [facility] Homogenous nuclear A b pattern [Titer] in Serum [facility] IgG [Mass/volume] in Serum or Plasma [facility] End: 06-18-2023 INITIATE PACU OXYGEN THERAPY PROTOCOL Initiate PACU Oxygen Therapy Protocol Respiratory Care Routine Continuous until discontinued starting 06/18/2023 [facility] [employer] Comment on above: Continuous until discontinued starting 0 06/18/2023 Lipoprotein a [Moles/volume] in Serum or Plasma [facility] Mitochondria M2 IgG Ab [Units/volume] in Serum [facility] Nuclear Ab [Titer] i n Serum [facility] Oxygen therapy [Mini mum Data Set] Initiate Oxygen Therapy Protocol Respiratory Care Routine As Needed until discontinued starting 06/18/2023 [facility] [employer] Comment on above: As Needed until discontinued starting Oxygen therapy [Mini mum Data Set] Initiate Oxygen Therapy Protocol Respiratory Care Routine As Needed until discontinued starting 06/18/2023 [email or web address] Comment on above: As Needed until discontinued starting Patient Education Hemorrhoids (DC) [facility] Work Phone: End: 06-18-2023 , urine POCT , urine POCT Point of Care Testing Routine One Time for 1 Occurrences starting 06/18/2023 until 06/18/2023 [facility] [employer] Comment on above: One Time for 1 Occurrences starting 06/01 until 06/18/2023 Surgical Pathology Surgical Path ology Lab Routine Post-menopausal bleeding Inclusion cyst Release Upon Ordering for 1 Occurrences starting 06/18/2023 [facility] [employer] Comment on above: Release Upon Ordering for 1 Occurrences starting 06/18/2023 [facility] Immunizations Immunization Date Immunization Notes Care Provider Fa kris 06-16-2022 influenza, injectabl e, quadrivalent, preservative free Ashley Dejesus Work Phone: [facility] [employer] 250 DO Work Phone: 06-16-2022 zoster vaccine recombinant Ashley Dejesus Work Phone: [facility] [employer] [address] DO Work Phone: 08-01-2021 [employer] COVI D-19 Vacc 30 MCG/0.3ML Intramuscular Suspension Ashley Dejesus Work Phone: [facility] [employer] 250 DO Work Phone: 06-30-2021 influenza virus vacc ine, unspecified formulation Ashley M Hoy Work Phone: [facility] 250 DO Work Phone: 06-03-2021 Influenza, injectabl e, Madin [place] Canine Kidney, preservative free, quadrivalent Ashley M Hoy Work Phone: [facility] 250 DO Work Phone: 01-29-2021 [employer] COVI D-19 Vacc 30 MCG/0.3ML Intramuscular Suspension Ashley M Hoy Work Phone: [facility] 250 DO Work Phone: 01-08-2021 [employer] COVI D-19 Vacc 30 MCG/0.3ML Intramuscular Suspension Ashley M Hoy Work Phone: [facility] 250 DO Work Phone: 2020 influenza, injectabl e, quadrivalent, preservative free Ashley M Hoy Work Phone: [facility] [employer] DO Work Phone: 07-23-2018 influenza, injectabl e, quadrivalent, preservative free Ashley M Hoy Work Phone: [place] [address] DO Work Phone: 07-26-2017 Influenza, injectabl e, Madin [place] Canine Kidney, preservative free, quadrivalent Ashley M Hoy Work Phone: [facility] 250 DO Work Phone: 05-09-2017 pneumococcal polysaccharide vaccine, 23 valent Ashley M Hoy Work Phone: [place] [address] DO Work Phone: 07-03-2015 influenza, seasonal, injectable, preservative free Ashley M Hoy Work Phone: [place] [address] DO Work Phone: 06-15-2014 influenza, seasonal, injectable Ashley Dejesus Work Phone: [facility] [employer] 250 DO Work Phone: 07-29-2009 novel influenza-H1N1 -09, preservative-free, injectable Ashley Dejesus Work Phone: [facility] [employer] 250 DO Work Phone: Payers Date Payer Category Payer Self-pay [id number] [phone] [id number] 2022 Unknown 2019 Unknown [employer] PPO [place] LOCAL xxxxxxxxxxxxxxx 2019-Present [address] [place] [address] xxxxxxxxxxxxxxx [id number] 1964 Unknown [id number] 1964 Unknown [id number] [id number] 1964 Unknown [id number] [id number] 1964 Unknown [id number] [id number] 1964 Unknown [id number] [id number] 1964 Unknown [id number] [id number] 1964 Unknown [id number] [id number] 1964 Unknown [id number] [id number] 4 1964 Unknown [id number] [id number] 9 1964 Unknown [id number] [id number] 1964 Unknown [id number] [id number] 6 1959 Unknown [id number] 1959 Unknown [id number] Unknown [id number] Unknown [id number] [id number] Unknown [id number] Unknown [id number] Social History Date Type Detail Facility Start: 08-19-2019 End: 08-14-2023 Tobacco smoking status NHIS Never smoker [place], [place] Start: 08-19-2019 End: 06-18-2023 Alcohol intake Ex-drinker (finding) [place], [place] Start: 1965 Sex Assigned At Not on file [place] Start: 02-13-2023 End: 06-18-2023 No alcohol use No alcohol use [facility] [address] DO Work Phone: Start: 08-19-2019 End: 08-14-2023 Tobacco use and exposure Smokeless tobacco non-user [facility] Work Phone: Start: 02-13-2023 End: 06-18-2023 Sex Assigned At Female [facility] Start: 1965 Sex Assigned At Female F [facility] Patient Health Questionnaire 9 item (PHQ-9) total score [Reported] 0 [facility] Start: 08-14-2023 Alcohol intake Lifetime non-drinker (finding) [facility] Work Phone: Start: 08-04-2023 End: 08-14-2023 Exposure to SARS-CoV-2 (event) Not sure [facility] NEGATED: Highlighted row Denies Caffeine use Denies Caffeine use -[facility] 250 DO Work Phone: Medical Equipment Procedure Code Equipment Code Equipment Origin al Text Equipment Identifier Dates Cystoscopy, with ureteral calculus manipulation and stent placement STENT BARD MULTI [id number] FDA Start: 04-24-2018 Cystoscopy, with ureteral calculus manipulation and stent placement STENT BARD MULTI [id number] FDA Start: 04-24-2018 Cystoscopy, with ureteral calculus manipulation and stent placement STENT BARD MULTI 6FR [id number] FDA Start: 04-24-2018 Goals Date Patient Goal Desired Activity /State Functional Status Date Assessment Result Facility 06-02-2022 Functional Status N/A [facility] Clinical Notes 06-02-2022 to 08-14-2023 Ramandeep Garibay, - 08/14/2023 3:00 PM ESTPatient InstructionsDischarge Debbie Pro RN - 06/06/2023 11:34 AM EDT Note Date & Type Note Facility 08-14-2023 History of Present illness Narrative Subjective Jose Alberto Saleem is a 58 y.o. female Chief Complaint Annual Exam 58-year-old female returns for follow-up she is doing well from a cardiovascular standpoint with no hospitalizations, syncope, nitrate usage. She had a brief episode of pancreatitis that was suspected with minor lipase elevation earlier this year but potentially related to her previous history of Sly-en-Y gastric bypass. Unfortunately, she lost her this past year due to chronic recurring illness. She has a history of remote CABG, remote VA, remote PCI's before and after her CABG and normal stress imaging in 2017. She has mild liver enzyme elevation as reviewed, AST 50, ALT 82 remainder of her laboratories are reviewed and normal Recommendations: Continue current therapies, reassess lipid and liver profiles in 6 months and follow-up in 1 year Review of Systems Cardiovascular: Positive for palpitations. All other systems reviewed and are negative. Visit Vitals BP 138/80 (BP Location: Left arm, Patient Position: Sitting) Pulse 56 Ht 1.613 m (5' 3.5 ) Wt 73 kg (161 lb) BMI 28.07 kg/m Smoking Status Never BSA 1.81 m Objective Physical Exam Constitutional: Appearance: Normal appearance. She is normal weight. HENT: Nose: Nose normal. Neck: Vascular: No carotid bruit. Cardiovascular: Rate and Rhythm: Normal rate. Pulses: Normal pulses. Heart sounds: Normal heart sounds. Pulmonary: Effort: Pulmonary effort is normal. Abdominal: General: Bowel sounds are normal. Palpations: Abdomen is soft. Genitourinary: Rectum: Normal. Musculoskeletal: General: Normal range of motion. Cervical back: Normal range of motion. Right lower leg: No edema. Left lower leg: No edema. Skin: General: Skin is warm and dry. Neurological: General: No focal deficit present. Mental Status: She is alert. Psychiatric: Mood and Affect: Mood normal. Behavior: Behavior normal. Thought Content: Thought content normal. Judgment: Judgment normal. Current Medications Current Outpatient Medications: Aciphex EC tablet, Take 1 tablet (20 mg) by mouth 2 times a day., Disp: , Rfl: aspirin 81 mg EC tablet, Take 1 tablet (81 mg) by mouth once daily., Disp: , Rfl: atorvastatin (Lipitor) 20 mg tablet, Take 1 tablet (20 mg) by mouth once daily., Disp: , Rfl: calcium carbonate (CALCIUM 500 ORAL), Take 1 tablet by mouth once daily., Disp: , Rfl: cevimeline (Evoxac) 30 mg capsule, Take by mouth 4 times a day., Disp: , Rfl: citalopram (CeleXA) 20 mg tablet, Take 1 tablet (20 mg) by mouth once daily., Disp: , Rfl: diclofenac sodium 3 % gel, twice a day., Disp: , Rfl: docusate sodium (Colace) 100 mg capsule, Take 1 capsule (100 mg) by mouth 2 times a day., Disp: , Rfl: fluticasone (Flonase) 50 mcg/actuation nasal spray, Administer 1 spray into affected nostril(s) 2 times a day., Disp: , Rfl: hydroCHLOROthiazide (HYDRODiuril) 12.5 mg tablet, Take 0.5 tablets (6.25 mg) by mouth once daily., Disp: , Rfl: mometasone (Elocon) 0.1 % cream, twice a day., Disp: , Rfl: multivit-min/ferrous fumarate (MULTI VITAMIN ORAL), Take 1 tablet by mouth 2 times a day., Disp: , Rfl: nitroglycerin (Nitrostat) 0.4 mg SL tablet, Place 1 tablet (0.4 mg) under the tongue every 5 minutes if needed for chest pain., Disp: , Rfl: nystatin (Nyamyc) 100,000 unit/gram powder, apply topically to affected area twice a day if needed, Disp: , Rfl: tamsulosin (Flomax) 0.4 mg 24 hr capsule, Take 1 capsule (0.4 mg) by mouth once daily., Disp: , Rfl: vit C/E/Zn/coppr/lutein/zeaxan (PRESERVISION AREDS-2 ORAL), Take by mouth twice a day., Disp: , Rfl: Assessment/Plan 1. Atherosclerosis of coronary artery of [place] heart without angina pectoris, unspecified vessel or lesion type 2. History of coronary artery bypass graft 3. Ischemic cardiomyopathy 4. Essential hypertension, benign documented in this encounter [facility] Work Phone: 08-14-2023 Instructions Ej Braswell MA - 08/14/2023 3:00 PM EST Please bring all medicines, vitamins, and herbal supplements with you when you come to the office. Prescriptions will not be filled unless you are compliant with your follow up appointments or have a follow up appointment scheduled as per instruction of your physician. Refills should be requested at the time of your visit. documented in this encounter [facility] Work Phone: 06-18-2023 Hospital Discharge instructions Lissa Ocasio PA-C - 06/18/2023 2:07 PM EDT SAME DAY SURGERY DISCHARGE INSTRUCTIONS 1. Do not drive or operate hazardous machinery for 24 hours. 2. Do not make important personal or business decisions for 24 hours. 3. Do not drink alcoholic beverages for 24 hours. 4. Do not smoke tobacco products for 24 hours. 5. Eat light foods (Jell-O, soups, etc....) and drink plenty of fluids (water, Sprite, etc...) up to 8 glasses per day, as you can tolerate. 6. Limit your activities for 24 hours. Do not engage in heavy work until your surgeon gives you permission. 7. Patient should not be left alone for 12-24 hours following surgical procedure. 8. Wash hands before and after incision care. It is important to practice good personal hygiene during the post op period. 9. Notify your doctor immediately of any of the following: Excessive swelling of, or around the wound area. Redness. Temperature of 100 degrees (F) or above. Excessive pain. Unable to urinate or empty bladder 4-6 hours after surgery. Excessive bleeding at incision site. 10. Call your surgeon for any questions regarding your surgery. POST-OPERATIVE INSTRUCTIONS Activity as tolerated; may shower and change dressings as needed. Pain medication to be taken as directed for discomfort. No sexual relations, douches, tampons, tub baths, swimming in ponds/pools, or hot tubs for 2 weeks or until discharge, bleeding stops. May have some vaginal drainage for 1-2 weeks, call if excessive. Call the office at [phone] ([place]) [phone] ([place]) for an appointment in 2 weeks. documented in this encounter [facility] 06-06-2023 History of Present illness Narrative Patient instructed on the pre-operative, intra-operative, and post-operative process. Patient instructed on NPO status. Medication instructions and pre operative instruction sheet reviewed over the phone. Instructed pt to stop taking non prescription vitamins 7 days prior to surgery and to take celexa with a small sip of water prior to arriving to the hospital the day of surgery Pt takes a prescription bariatric vitamin because of her gastric bypass surgery. Pt states she was instructed to stop aspirin 7 days prior to surgery per Dr. Engel's instructions. Pt will complete EKG day of her pre-op visit with Dr. Engel. documented in this encounter [facility] 11-20-2022 Evaluation note Encounter Date Diagnosis Assessment Notes Nov, Elevated liver function tests (ICD-10 - R94.5) [employer] [facility]* Encounter Date Diagnosis Assessment Notes Treatment Notes Treatment Clinical Notes Oct, Abdominal pain (ICD-10 - R10.9) Oct, Common bile duct dilatation (ICD-10 - K83.8) Oct, Elevated liver enzymes (ICD-10 - R74.8) Oct, Constipation (ICD-10 - K59.00) Colonoscopy Start Miralax daily after colonoscopy. Titration dosing discussed with patient. Oct, Colon cancer screening (ICD-10 - Z12.11) [employer] Other 01-04-2023 NotePROGRESS NOTE NOTE DATE: 10/04/2022 CHIEF COMPLAINT: Abdominal pain. HISTORY OF PRESENT ILLNESS: The patient is a 57-year-old female with a history of dyslipidemia and gastric bypass surgery, who has been having increasing abdominal pain and flank pain. She was seen yesterday at the [facility] for epigastric and upper abdominal pain, for which she underwent lab studies and CT scan. There were no abnormalities except for a minimally elevated lipase. She was discharged home and was told to contact her PCP today. She was scheduled to come to the office tomorrow and possible direct admission for pain control for pancreatitis; however, the patient was unable to tolerate the pain and she presented to the emergency room today for worsening left flank pain. She took Tylenol #3 with codeine last night with minimal improvement. She denies diarrhea. She has had some constipation for which she is taking Colace b.i.d. and it is still no effective. She denies any sick contacts or any new medications, other than what was mentioned above. She has been vaccinated for COVID and flu. She presented to the ED and was noted to have a negative urine analysis. Amylase was mildly elevated at 124, glucose 111, BUN 23. ALT was 94 and AST was 69. CBC was normal. CT abdomen showed punctate, non-obstructing stone in the left kidney but no hydronephrosis or hydroureter. Lipase was within normal limits at 170. The patient was being admitted for pain control. PHYSICAL EXAM: VITAL SIGNS: Temperature is 97.8, pulse 89, BP 149/98, saturating 98%. GENERAL: The patient is in no acute abnormality. HEENT: Extraocular movements are intact. Pupils equal, round and reactive to light and accommodation. NECK: Supple. No evidence of JVD or carotid bruits. CHEST: Clear to auscultation bilaterally. HEART: Regular rate and rhythm. S1 and S2 are heard. ABDOMEN: Soft, diffuse tenderness throughout, non-focal. NEUROLOGICALLY: No focal neurological deficits. EXTREMITIES: No clubbing, cyanosis or edema IMPRESSION AND PLAN: The patient is a 57-year-old female with the above medical problems, presenting with abdominal pain. Abdominal pain: Could be functional from constipation versus some mild pancreatitis or from left kidney stone. Provide supportive care. Provide IV fluids, morphine, lidocaine patch, Ultram. diet. ' Increased LFTs: Unclear etiology. Obtain abdominal ultrasound. Hold statin. DVT Prophylaxis: Lovenox. DISPOSITION: Home when medically stable.[id number] Discharge instructions Patient Education 06/02/2022 08:51:52 Kidney Stones, Mjax-os-Ttjp Kidney Stones Kidney stones are rock-like masses that form inside of the kidneys. Kidneys are organs that make pee (urine). A kidney stone may move into other parts of the urinary tract, including: The tubes that connect the kidneys to the bladder (ureters). The bladder. The tube that carries urine out of the body (urethra). Kidney stones can cause very bad pain and can block the flow of pee. The stone usually leaves your body (passes) through your pee. You may need to have a doctor take out the stone. What are the causes? Kidney stones may be caused by: A condition in which certain glands make too much parathyroid hormone (primary hyperparathyroidism). A buildup of a type of crystals in the bladder made of a chemical called uric acid. The body makes uric acid when you eat certain foods. Narrowing (stricture) of one or both of the ureters. A kidney blockage that you were born with. Past surgery on the kidney or the ureters, such as gastric bypass surgery. What increases the risk? You are more likely to develop this condition if: You have had a kidney stone in the past. You have a family history of kidney stones. You do not drink enough water. You eat a diet that is high in protein, salt (sodium), or sugar. You are overweight or very overweight (obese). What are the signs or symptoms? Symptoms of a kidney stone may include: Pain in the side of the belly, right below the ribs (flank pain). Pain usually spreads (radiates) to the groin. Needing to pee often or right away (urgently). Pain when going pee (urinating). Blood in your pee (hematuria). Feeling like you may vomit (nauseous). Vomiting. Fever and chills. How is this treated? Treatment depends on the size, location, and makeup of the kidney stones. The stones will often pass out of the body through peeing. You may need to: Drink more fluid to help pass the stone. In some cases, you may be given fluids through an IV tube put into one of your veins at the hospital. Take medicine for pain. Make changes in your diet to help keep kidney stones from coming back. Sometimes, medical procedures are needed to remove a kidney stone. This may involve: A procedure to break up kidney stones using a beam of light (laser) or shock waves. Surgery to remove the kidney stones. Follow these instructions at home: Medicines Take qbgn-swo-wbrtajp and prescription medicines only as told by your doctor. Ask your doctor if the medicine prescribed to you requires you to avoid driving or using heavy machinery. Eating and drinking Drink enough fluid to keep your pee pale yellow. You may be told to drink at least 8 10 glasses of water each day. This will help you pass the stone. If told by your doctor, change your diet. This may include: ?Limiting how much salt you eat. ?Eating more fruits and vegetables. ?Limiting how much meat, poultry, fish, and eggs you eat. Follow instructions from your doctor about eating or drinking restrictions. General instructions Collect pee samples as told by your doctor. You may need to collect a pee sample: ?24 hours after a stone comes out. ?8 12 weeks after a stone comes out, and every 6 12 months after that. Strain your pee every time you pee (urinate), for as long as told. Use the strainer that your doctor recommends. Do not throw out the stone. Keep it so that it can be tested by your doctor. Keep all follow-up visits as told by your doctor. This is important. You may need follow-up tests. How is this prevented? To prevent another kidney stone: Drink enough fluid to keep your pee pale yellow. This is the best way to prevent kidney stones. Eat healthy foods. Avoid certain foods as told by your doctor. You may be told to eat less protein. Stay at a healthy weight. Where to find more information National Kidney Foundation (NKF): www.kidney.org U[employer] Care Foundation (UCF): www.urologyhealth.org Contact a doctor if: You have pain that gets worse or does not get better with medicine. Get help right away if: You have a fever or chills. You get very bad pain. You get new pain in your belly (abdomen). You pass out (faint). You cannot pee. Summary Kidney stones are rock-like masses that form inside of the kidneys. Kidney stones can cause very bad pain and can block the flow of pee. The stones will often pass out of the body through peeing. Drink enough fluid to keep your pee pale yellow. This information is not intended to replace advice given to you by your health care provider. Make sure you discuss any questions you have with your health care provider. Document Released: 03/05/2009 Document Revised: 02/03/2020 Document Reviewed: 02/03/2020 [employer] Patient Education 2020 [employer] Follow Up Care 05/27/2021 09:10:08 With:Santiago CARRILLO MD, URL Address: [address] [place] [id number]- When: Unknown [facility] evaluation + Plan note Future Appointments Appointment Date:06/01/2023 08:00:00 AM Scheduled Provider:Santiago CARRILLO MD Location:[facility] Appointment Type:URO Office Visit [facility] evaluation note* Diagnosis Women's annual routine gynecological examination documented in this encounter [employer] Work Phone: evaluation noteNo assessment information available [facility] Work Phone: Evaluation noteNo InformationNort [employer] Other Evaluation note* Diagnosis Post-menopausal bleeding Postmenopausal bleeding Inclusion cyst Sebaceous cyst [facility] Diagnosis Atherosclerosis of coronary artery of [place] heart without angina pectoris, unspecified vessel or lesion type 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 Ischemic cardiomyopathy Other specified forms of chronic ischemic heart disease Essential hypertension, benign documented in this encounter [facility] Work Phone: History and physical note Author Evert Bruno [facility] November 01, 2022 12:40pm Note Date/Time November 01, 2022 1 2:40pm [facility] [address] [place] [address] Gastroenterology H&P Signed Patient: Jose Alberto Saleem MR#: [id number] : 1965 Acct:[id number] Age/Sex: 57 / F Adm Date: 3 Loc: Room: Type: [facility] Attending Dr: Evert Bruno MD Copies to: MD Evert Little MD~ Date of Service: 11/01/2022 HISTORY & PHYSICAL: Patient's history with special attention to the cardiovascular, pulmonary systems and the current problem was reviewed with the patient immediately prior to the procedure. Present medications and doses reviewed in the EMR. Allergies and pertinent laboratory tests were also reviewedat this time in the EMR. The physical examination, as below, was then performed. Indication, assessment and HPI: 57-year-old female here for colonoscopy for evaluation of constipation Family history of GI malignancy? No PHYSICAL EXAMINATION Mouth and Pharynx : Moist mucus membranes, normal dentition Cardiac: Regular rate, regular rhythm Pulmonary: Clear to auscultation bilaterally, no wheezing Neurological: Alert and oriented x3, no focal deficits noted Abdomen: Abdomen soft, non-tender REVIEW OF SYSTEMS Constitutional: Denies malaise, fevers Cardiovascular: Denies chest pain, palpitations Respiratory: Denies shortness of breath, wheezing Gastrointestinal: Per HPI Genitourinary: Denies dysuria, polyuria Musculoskeletal: Denies joint swelling, joint stiffness Neurological: Denies numbness, tingling Integumentary: Denies rashes, skin lesions Endocrine: Denies fatigue, weight loss Written informed consent obtained from the patient. Risks (including but not limited to perforation, infection, bloating, bleeding, need for emergent surgeryand loss of life), benefits and alternatives explained and questions answered. The patient verbalized understanding. Based on history patient is an appropriate candidate for the procedure. Evert Bruno M.D. Documented By: Evert Bruno MD 11/01/22 1239 Signed By: <Electronically signed by Evert Bruno MD> 11/01/22 1240 [facility] Work Phone: History and physical note Author Evert Bruno [facility] November 02, 2022 2:14pm Note Date/Time November 02, 2022 2 :14pm [facility] [address] [place] [address] Gastroenterology H&P Signed Patient: Jose Alberto Saleem MR#: [id number] : 1965 Acct:[id number] Age/Sex: 57 / F Adm Date: 3 Loc: Room: Type: [facility] Attending Dr: Evert Bruno MD Copies to: MD Evert Little MD~ Date of Service: 11/02/2022 HISTORY & PHYSICAL: Patient's history with special attention to the cardiovascular, pulmonary systems and the current problem was reviewed with the patient immediately prior to the procedure. Present medications and doses reviewed in the EMR. Allergies and pertinent laboratory tests were also reviewedat this time in the EMR. The physical examination, as below, was then performed. Indication, assessment and HPI: 57-year-old female here for colonoscopy for evaluation of constipation Family history of GI malignancy? No PHYSICAL EXAMINATION Mouth and Pharynx : Moist mucus membranes, normal dentition Cardiac: Regular rate, regular rhythm Pulmonary: Clear to auscultation bilaterally, no wheezing Neurological: Alert and oriented x3, no focal deficits noted Abdomen: Abdomen soft, non-tender REVIEW OF SYSTEMS Constitutional: Denies malaise, fevers Cardiovascular: Denies chest pain, palpitations Respiratory: Denies shortness of breath, wheezing Gastrointestinal: Per HPI Genitourinary: Denies dysuria, polyuria Musculoskeletal: Denies joint swelling, joint stiffness Neurological: Denies numbness, tingling Integumentary: Denies rashes, skin lesions Endocrine: Denies fatigue, weight loss Written informed consent obtained from the patient. Risks (including but not limited to perforation, infection, bloating, bleeding, need for emergent surgeryand loss of life), benefits and alternatives explained and questions answered. The patient verbalized understanding. Based on history patient is an appropriate candidate for the procedure. Evert Bruno M.D. 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[employer] Surgical History CABG remote history Surgical History gastric bypass 2018 Surgical History multiple kidney stones removed Surgical History appendectomy Surgical History cyst on ovarian removed Surgical History bilateral carpe tunnel surgery 2021 Surgical History cholecystectomy Hospitalization History see surgical hx [employer] Other Hospital course Narrative No data available for this section [facility] Hospital Discharge instructions Additional Instructions DISCHARGE INSTRUCTIONS FOR COLONOSCOPY WHAT TO EXPECT: - You may feel full, gassy or cramping after your procedure. In some cases, this may be from a few hours to a day. Walking may help relieve the discomfort. - If you have polyp(s) removed you may note some minor bloody discharge after your first bowel movements. - You should begin to recover from anesthesia within 1 hour of the procedure, however may feel groggy for the next 24 hours. DO's AND DON'Ts: - Call your doctor right away if you have a hard abdomen, severe pain, are passing lots of bright red blood or clots. - Call your doctor if you develop any rashes, hives or difficulty breathing. - Let your doctor know if you have not had a bowel movement by 3 days after your procedure. - If you take 81 mg aspirin for your heart it is safe to resume this medication. - If you take other blood thinner medications your doctor will instruct you when these can safely be resumed. - Do NOT drive for 24 hours. - Do NOT operate machinery such as power tools, lawn mowers, snow blowers, sewing machines, etc. for 24 hours. - Avoid alcoholic beverages and drugs for allergies, nerves, or sleep. - Do NOT stay alone. Do NOT leave your child unattended. - Do NOT make important personal or business decisions or sign any legal documents. - Eat solid foods and drink liquids in smaller amounts than usual until normal appetite returns. If you should experience an upset stomach, liquids high in sugar content (soda, Corey-Aid, non-acid juices) are recommended. - You can resume normal activities tomorrow. FOLLOW UP & RECOMMENDATIONS: -Repeat colonoscopy tomorrow with additional prep today -Notify the doctor if you have any problems. -Follow up with PCP. -Office number [phone]. [facility] Work Phone: Hospital Discharge instructions Additional Instructions DISCHARGE INSTRUCTIONS FOR COLONOSCOPY WHAT TO EXPECT: - You may feel full, gassy or cramping after your procedure. In some cases, this may be from a few hours to a day. Walking may help relieve the discomfort. - If you have polyp(s) removed you may note some minor bloody discharge after your first bowel movements. - You should begin to recover from anesthesia within 1 hour of the procedure, however may feel groggy for the next 24 hours. DO's AND DON'Ts: - Call your doctor right away if you have a hard abdomen, severe pain, are passing lots of bright red blood or clots. - Call your doctor if you develop any rashes, hives or difficulty breathing. - Let your doctor know if you have not had a bowel movement by 3 days after your procedure. - If you take 81 mg aspirin for your heart it is safe to resume this medication. - If you take other blood thinner medications your doctor will instruct you when these can safely be resumed. - Do NOT drive for 24 hours. - Do NOT operate machinery such as power tools, lawn mowers, snow blowers, sewing machines, etc. for 24 hours. - Avoid alcoholic beverages and drugs for allergies, nerves, or sleep. - Do NOT stay alone. Do NOT leave your child unattended. - Do NOT make important personal or business decisions or sign any legal documents. - Eat solid foods and drink liquids in smaller amounts than usual until normal appetite returns. If you should experience an upset stomach, liquids high in sugar content (soda, Corey-Aid, non-acid juices) are recommended. - You can resume normal activities tomorrow. FOLLOW UP & RECOMMENDATIONS: -Repeat colonoscopy within the next year with 2-day prep and clear prep instructions. -Notify the doctor if you have any problems. -Follow up with PCP. -Office number [phone]. [facility] Work Phone: Progress note No data available for this section [facility] reason for referral (narrative)* Consultation (Routine) - Authorized Specialty Diagnoses / Procedures Referred By Manfred t Referred To Contact Cardiology Diagnoses Atherosclerosis of coronary artery of [place] heart without angina pectoris, unspecified vessel or lesion type History of coronary artery bypass graft Procedures Follow Up In Cardiology Ramandeep Garibay DO [address] [facility] 2, [address] [address] Ramandeep Garibay DO [address] [place] [address] [address], [address] [address] Referral ID Status Reason Start Date Expiration Date V isits Requested Visits Authorized [id number] Authorized 08/14/2023 08/13/2024 1 1 [facility] Work Phone: Summary Purpose Family History No Family History Records FoundUnknown Family Member Name Dates Details Family history of arterioscl erotic cardiovascular disease: Mother(V17.49, Z82.49) Status:Active Unknown Family Member Name Dates Details Family history of arterioscl erotic cardiovascular disease: Mother(V17.49, Z82.49) Status:Active Unknown Family Member Name Dates Details Family history of arterioscl erotic cardiovascular disease: Mother(V17.49, Z82.49) Status:Active Unknown Family Member Name Dates Details Family history of arterioscl erotic cardiovascular disease: Mother(V17.49, Z82.49) Status:Active Unknown Family Member Name Dates Details Family history of arterioscl erotic cardiovascular disease: Mother(V17.49, Z82.49) Status:Active Unknown Family Member Name Dates Details Family history of arterioscl erotic cardiovascular disease: Mother(V17.49, Z82.49) Status:Active Unknown Family Member Name Dates Details Family history of arterioscl erotic cardiovascular disease: Mother(V17.49, Z82.49) Status:Active Unknown Family Member Name Dates Details Family history of arterioscl erotic cardiovascular disease: Mother(V17.49, Z82.49) Status:Active Relationship Condition Age at Onset Recorded Date/T cb father Heart disease Unknown Not Specified Heart disease Unknown brother Heart disease Unknown grandparent Cerebrovascular accident (CVA) Unknown Unknown Family Member Name Dates Details Family history of arterioscl erotic cardiovascular disease: Mother(V17.49, Z82.49) Status:Active Unknown Family Member Name Dates Details Family history of arterioscl erotic cardiovascular disease: Mother(V17.49, Z82.49) Status:Active Unknown Family Member Name Dates Details Family history of arterioscl erotic cardiovascular disease: Mother(V17.49, Z82.49) Status:Active Advance Directives No Advanced Directives Records FoundDocuments on File Type Date Recorded Patient Donor Relations Manager Expl anation Advance Directives and Living Will Power of Crime Victim Specialist Documents on File Type Date Recorded Patient Donor Relations Manager Expl anation ACP-Advance Directive ACP-Power of Crime Victim Specialist Advance Directive Response Recorded Date/ Time Advance Directives No April 17 12:46am Advance Directive Response Recorded Date/ Time Advance Directives No April 17 1:46am Latest Code Status on File Code Status Date Activated Date Inactivated Comments Full Code 06/18/2023 1:21 PM Assessments Diagnosis Well female exam with routine gynecological exam Routine gynecological examination Chief Complaint * JOSE ALBERTO SALEEM is being seen for an annual follow-up of. * 56-year-old female who returns for routine follow-up and she is doing exceedingly well. She has no further complaints of orthostasis. She has known history of prior inferior VA, prior stenting, priorthree-vessel CABG, subsequent PCI of circumflex OM branch in 2013. Last ischemic evaluation 2017 revealed a normal myocardial perfusion stress test. * Patient has no current angina or heart failure hospitalizations. She is status post Lsy-en-Y gastric bypass with substantial weight loss. * She remains on aspirin and atorvastatin only for her secondary preventive therapies given her adverse reactions to other medications, hypotension. * [place] [employer] is class I * Recommendations, continue current therapies we will follow-up within the next year * Patient did not bring medication list or bottles. Updated verbally with patient * JOSE ALBERTO SALEEM is being seen for an annual follow-up of. * Patient did not bring medication list or bottles. Updated verbally with patient * JOSE ALBERTO SALEEM is being seen for an annual follow-up of. * 57-year-old female here for follow-up and is doing very well she has no cardiovascular complaints. She denies any angina, hospitalizations, heart failure or nitrate usage. She remains on aspirin and atorvastatin as really her only primary therapies for cardiovascular therapy and secondary prevention . * She has a history of prior inferior VA, prior PCI with subsequent three-vessel CABG and then subsequent PCI of the circumflex OM branch 2013. Last ischemic evaluation in 2017 was normal. * She will likely need another ischemic evaluation within the next 1 to 2 years but remains active without anginal symptomatology * Recommendations, continue current therapies obtain lipid panel follow-up in 1 year * Patient did not bring medication list or bottles. Updated verbally with patient * JOSE ALBERTO SALEEM is being seen for an annual follow-up of. * 57-year-old female here for follow-up and is doing very well she has no cardiovascular complaints. She denies any angina, hospitalizations, heart failure or nitrate usage. She remains on aspirin and atorvastatin as really her only primary therapies for cardiovascular therapy and secondary prevention . * She has a history of prior inferior VA, prior PCI with subsequent three-vessel CABG and then subsequent PCI of the circumflex OM branch 2013. Last ischemic evaluation in 2017 was normal. * She will likely need another ischemic evaluation within the next 1 to 2 years but remains active without anginal symptomatology * Recommendations, continue current therapies obtain lipid panel follow-up in 1 year Chief Complaint and Reason for Visit Chief Complaint Abdominal Pain, Cons tipation Chief Complaint Abdominal Pain, Cons tipation abd pain Chief Complaint Abdominal Pain, Cons tipation abd pain R10.9 K83.8 R74.8 Fatty Liver Additional Source Comments INFORMATION SOURCE (unrecogn ized section and content) DATE CREATED AUTHOR 03/26/2018 [facility] Healthcare DATE CREATED AUTHOR AUTHOR'S ORGANIZ ATION 03/26/2018 [facility] DATE CREATED AUTHOR AUTHOR'S ORGANIZ ATION 08/02/2022 [facility] dical Specialist DATE CREATED AUTHOR AUTHOR'S ORGANIZ ATION 08/17/2022 [facility] DATE CREATED AUTHOR AUTHOR'S ORGANIZ ATION 10/17/2022 [facility] DATE CREATED AUTHOR AUTHOR'S ORGANIZ ATION 12/16/2022 [facility] DATE CREATED AUTHOR AUTHOR'S ORGANIZ ATION 06/23/2023 [facility] DATE CREATED AUTHOR AUTHOR'S ORGANIZ ATION 07/16/2023 [facility] DATE CREATED AUTHOR AUTHOR'S ORGANIZ ATION 08/16/2023 [facility] DATE CREATED AUTHOR AUTHOR'S ORGANIZ ATION 09/15/2023 [facility] dical Specialists EPIC DATE CREATED AUTHOR AUTHOR'S ORGANIZ ATION 12/04/2023 [facility] DATE CREATED AUTHOR AUTHOR'S ORGANIZ ATION 01/19/2024 [facility] Care Teams (unrecognized sec tion and content) Team Status: Active Member Role Status Dates Ashley Dejesus MD Primary Care Provider Active Team Status: Inactive Member Role Status Dates Ashley Dejesus MD Primary Care Provider Active Evert Bruno MD Attending Provider Active [employer] Control Technician Relationship Specialty Start Date End Date Ashley Dejesus MD [facility] [place] [address] PCP - General Family Medicine 08/19/19 [employer] Control Technician Relationship Specialty Start Date End Date Ashley Dejesus MD [address] [place] [address] PCP - General Family Medicine 08/19/19 [employer] Control Technician Relationship Specialty Start Date End Date Ashley Dejesus MD [address] [facility] [place] [address] PCP - General 08/17/21 REASON FOR VISIT (unrecogniz ed section and content) Specialty Diagnoses / Procedures Referred By Manfred t Referred To Contact Diagnoses Post-menopausal bleeding Inclusion cyst Post-menopausal bleeding [N95.0] Inclusion cyst [L72.0] Procedures NM HYSTEROSCOPY BX ENDOMETRIUM&/POLYPC W/WO D&C NM DESTRUCTION BENIGN LESIONS UP TO 14 DILATATION AND CURETTAGE HYSTEROSCOPY-REMOVAL OF INCLUSION CYST Gaby Chahal, DO [address] [place] [address] [facility] [address] [place] [address] Referral ID Status Reason Start Date Expiration Date Visits Re quested Visits Authorized [id number] 1 1 Reason Comments Annual Exam 1yr Ordered Prescriptions (unrec ognized section and content) Prescription Sig Dispensed Refills Start Date End Da te ketorolac (TORADOL) 10 MG tablet Take 1 tablet by mouth every 6 hours as needed for Pain 10 tablet 0 06/18/2023 06/17/2024 Scheduled Active and Recently Administ ered Medications (unrecognized section and content) Medication Order 06/16/2023 06/17/2023 06/18/2023 acetaminophen (TYLENOL) tablet 650 mg (COMPLETED) 650 mg, Oral, ONCE, 1 dose, On Sun06/18/23 at 1345, Maximum dose of acetaminophen is 4000 mg from all sources in 24 hours., Pre-op (day of surgery) 1342 (Given - Provid er: Sigrid Mendoza RN) dimenhyDRINATE (DRAMAMINE) tablet 50 mg (COMPLETED) 50 mg, Oral, ONCE, 1 dose, On Sun06/18/23 at 1345, Pre-op (day of surgery) 1342 (Given - Provid er: Sigrid Mendoza RN) sodium chloride flush 0.9 % injection 5-40 mL 5-40 mL, IntraVENous, EVERY 12 HOURS SCHEDULED (2 times per day), First dose on Sun06/18/23 at 2100, Until Discontinued, For Line Patency: Peripheral IV = 5 mL; Midline or Central Line = 10 mL/lumen. If following IV push medication, administer flush at same rate as the IV push. Flush volume is determined by type of infusion therapy being given. For non-viscous solutions use: Peripheral IV = 5 mL Midline or Central Line = 10 mL/lumen For viscous solutions (i.e. blood components, parenteral nutrition, contrast media, or after obtaining blood sample) use: Peripheral IV = 10 mL Midline or Central Line = 20 mL/lumen, Pre-op (day of surgery) 2100 (Due) sodium chloride flush 0.9 % injection 5-40 mL 5-40 mL, IntraVENous, EVERY 12 HOURS SCHEDULED (2 times per day), First dose on Sun06/18/23 at 2100, Until Discontinued, For Line Patency: Peripheral IV = 5 mL; Midline or Central Line = 10 mL/lumen. If following IV push medication, administer flush at same rate as the IV push. Flush volume is determined by type of infusion therapy being given. For non-viscous solutions use: Peripheral IV = 5 mL Midline or Central Line = 10 mL/lumen For viscous solutions (i.e. blood components, parenteral nutrition, contrast media, or after obtaining blood sample) use: Peripheral IV = 10 mL Midline or Central Line = 20 mL/lumen, PACU only 2100 (Due) Continuous Medication Order 06/16/2023 06/17/2023 06/18/2023 lactated ringers IV soln infusion IntraVENous, at 100 mL/hr, CONTINUOUS, Starting on Sun06/18/23 at 1345, Pre-op (day of surgery) 1343 (New Bag - Prov ider: Sigrid Mendoza RN)1401 (NoRateChange - Provider: OTONIEL Fragoso CRNA)1432 (Paused - Provider: OTONIEL Fragoso CRNA - Comment: Switch to gravity)1433 (Restarted - Provider: OTONIEL Fragoso CRNA) PRN Medication Order 06/16/2023 06/17/2023 06/18/2023 0.9 % sodium chloride infusion IntraVENous, at 5-250 mL/hr, PRN, if patient receiving piggyback infusions and maintenance fluids are not ordered OR KVO fluids to protect IV site / prevent frequent line interruptions/ long duration, Starting on Sun06/18/23 at 1320, For piggyback infusion, administer at same rate as piggyback for a total of 25 mL. Enter 25 mL into dose field and piggyback rate into rate field of order. If piggyback is infusing at a rate less than 100 mL/hr, enter 25 mL into dose field and 100 mL/hr into rate field of order. For KVO fluids, enter rate of 20 mL/hr or less into rate field of order., Pre-op (day of surgery) 0.9 % sodium chloride infusion IntraVENous, at 5-250 mL/hr, PRN, if patient receiving piggyback infusions and maintenance fluids are not ordered OR KVO fluids to protect IV site / prevent frequent line interruptions/ long duration, Starting on Sun06/18/23 at 1449, For piggyback infusion, administer at same rate as piggyback for a total of 25 mL. Enter 25 mL into dose field and piggyback rate into rate field of order. If piggyback is infusing at a rate less than 100 mL/hr, enter 25 mL into dose field and 100 mL/hr into rate field of order. For KVO fluids, enter rate of 20 mL/hr or less into rate field of order., PACU only 0.9 % sodium chloride infusion IntraVENous, at 5-250 mL/hr, PRN, if patient receiving piggyback infusions and maintenance fluids are not ordered OR KVO fluids to protect IV site / prevent frequent line interruptions/ long duration, Starting on Sun06/18/23 at 1449, For piggyback infusion, administer at same rate as piggyback for a total of 25 mL. Enter 25 mL into dose field and piggyback rate into rate field of order. If piggyback is infusing at a rate less than 100 mL/hr, enter 25 mL into dose field and 100 mL/hr into rate field of order. For KVO fluids, enter rate of 20 mL/hr or less into rate field of order., Pre-op (day of surgery) fentaNYL (SUBLIMAZE) injection 25 mcg 25 mcg, IntraVENous, EVERY 5 MIN PRN, 2 doses, Starting on Sun06/18/23 at 1449, Until Discontinued, Pain Moderate (4-6), For Phase I. If Phase II oral narcotics have been administered in the last 60 minutes, do not administer IV narcotics unless specifically approved by provider., PACU only fentaNYL (SUBLIMAZE) injection 50 mcg 50 mcg, IntraVENous, EVERY 5 MIN PRN, 2 doses, Starting on Sun06/18/23 at 1449, Until Discontinued, Pain Severe (7-10), For Phase I. If Phase II oral narcotics have been administered in the last 60 minutes, do not administer IV narcotics unless specifically approved by provider., PACU only metoclopramide (REGLAN) injection 10 mg 10 mg, IntraVENous, ONCE PRN, 1 dose, Starting on Sun06/18/23 at 1449, Until Sun06/19/23 at 1449, Nausea, Secondary antiemetic therapy., PACU only ondansetron (ZOFRAN) injection 4 mg 4 mg, IntraVENous, ONCE PRN, 1 dose, Starting on Sun06/18/23 at 1449, Until Sun06/19/23 at 1449, Nausea, Initial antiemetic therapy., PACU only oxyCODONE (ROXICODONE) immediate release tablet 5 mg (COMPLETED) 5 mg, Oral, ONCE PRN, 1 dose, Starting on Sun06/18/23 at 1449, Until Sun06/18/23 at 1505, Pain Moderate (4-6), Pain Severe (7-10), PHASE II, PACU only 1505 (Given - Provid er: Anastasia Valverde RN) sodium chloride flush 0.9 % injection 5-40 mL 5-40 mL, IntraVENous, PRN, Starting on Sun06/18/23 at 1320, Until Discontinued, Line Care, After every IV line use, For Line Patency: Peripheral IV = 5 mL; Midline or Central Line = 10 mL/lumen. If following IV push medication, administer flush at same rate as the IV push. Flush volume is determined by type of infusion therapy being given. For non-viscous solutions use: Peripheral IV = 5 mL Midline or Central Line = 10 mL/lumen For viscous solutions (i.e. blood components, parenteral nutrition, contrast media, or after obtaining blood sample) use: Peripheral IV = 10 mL Midline or Central Line = 20 mL/lumen, Pre-op (day of surgery) sodium chloride flush 0.9 % injection 5-40 mL 5-40 mL, IntraVENous, PRN, Starting on Sun06/18/23 at 1449, Until Discontinued, Line Care, After every IV line use, For Line Patency: Peripheral IV = 5 mL; Midline or Central Line = 10 mL/lumen. If following IV push medication, administer flush at same rate as the IV push. Flush volume is determined by type of infusion therapy being given. For non-viscous solutions use: Peripheral IV = 5 mL Midline or Central Line = 10 mL/lumen For viscous solutions (i.e. blood components, parenteral nutrition, contrast media, or after obtaining blood sample) use: Peripheral IV = 10 mL Midline or Central Line = 20 mL/lumen, PACU only sodium chloride flush 0.9 % injection 5-40 mL 5-40 mL, IntraVENous, PRN, Starting on Sun06/18/23 at 1449, Until Discontinued, Line Care, After every IV line use, For Line Patency: Peripheral IV = 5 mL; Midline or Central Line = 10 mL/lumen. If following IV push medication, administer flush at same rate as the IV push. Flush volume is determined by type of infusion therapy being given. For non-viscous solutions use: Peripheral IV = 5 mL Midline or Central Line = 10 mL/lumen For viscous solutions (i.e. blood components, parenteral nutrition, contrast media, or after obtaining blood sample) use: Peripheral IV = 10 mL Midline or Central Line = 20 mL/lumen, Pre-op (day of surgery) FOR RECORDS PERTAINING TO PATIENTS WHO ARE OR HAVE BEEN ENROLLED IN A CHEMICAL DEPENDENCY/SUBSTANCEABUSE PROGRAM, SOME INFORMATION MAY BE OMITTED. This clinical summary was aggregated from multiple sources. Caution should be exercised in using it in the provision of clinical care. This summary normalizes information from multiple sources, and as a consequence, information in this document may materially change the coding, format and clinical context of patient data. In addition, data may be omitted in some cases. CLINICAL DECISIONS SHOULD BE BASED ON THE PRIMARY CLINICAL RECORDS. [employer] provides no warranty or guarantee of the accuracy or completeness of information in this document.
[2024-01-19 13:14] LABS: Alanine Aminotransferase 166 U/L (14-59); Albumin Globulin Ratio 1.1; Albumin Level 3.9 g/dL (3.4-5.0); Alkaline Phosphatase 97 U/L (46-116); Aspartate Amino Transferase 85 U/L (15-37); Bilirubin Direct 0.1 mg/dL (0.0-0.2); Bilirubin Total 0.4 mg/dL (0.2-1.0); Globulin 3.5 g/dL; Total Protein 7.4 g/dL (6.4-8.2)
[2024-01-22 06:08] LABS: HBsAg Screen Negative (Negative); HCV Ab Non Reactive (Non Reactive); Hep A Ab, IgM Negative (Negative); Hep B Core Ab, IgM Negative (Negative)
== END 2024-01-19 11:30 | disposition home or self-care (01) ==
LOC: LAB 11:33
PROVIDERS: PCP Family Medicine; Visit Provider Family Medicine
DX: E78.1 Pure hyperglyceridemia (principal); R74.8 Abnormal levels of other serum enzymes
CPT/HCPCS: 36415; 80074; 80076

== ENCOUNTER 2024-01-19 11:37 | Outpatient (OUT) | payer BC, SELFPAY ==
--- OUTSIDE RECORDS SUMMARY | 2024-01-19 11:41 | XMS_ITS | CCD ---
Author Organization [facility] Care Team Providers Care Cone Runner Name Role Phone UNKNOWN, PROVIDER Unavailable Unavailable ASHLEY DEJESUS Unavailable Unavailable UNKNOWN, PROVIDER Unavailable Unavailable ASHLEY DEJESUS Unavailable Unavailable Ashley Dejesus Primary Care Provider [phone] Ashley Dejesus Unavailable Unavailable Unavailable Ashley Dejesus MD Primary Care Provider [phone] Unavailable Unavailable Ashley Dejesus Primary Care Physician DR RAMANDEEP GARIBAY Admitting Unavailclaire GARIBAY, DR RAMANDEEP Orozco Attending Unavailclaire DEJESUS, DR [...] Unavailable MD Ashley Dejesus Primary Care Provider [phone] MD Evert Bruno Attending Provider Evert Bruno Unavailable MD Ashley Dejesus Primary Care Provider [phone] MD Evert Bruno Attending Provider [phone] Asaad, Imad Attending Unavailable Asaad, Imad Admitting Unavailable HoDeacon jaralas M Primary Care Unavailable Asaad, Imad Attending Unavailable Asaad, Imad Admitting Unavailable HoAshley jara Primary Care Unavailable Asaad, Imad Attending Unavailable Asaad, Imad Admitting Unavailable HoAshley jara M Primary Care Unavailable Asaad, Imad Attending Unavailable Ashley Dejesus Primary Care Unavailable Asaad, Imad Admitting Unavailable Ashley Dejesus MD Primary Care Provider [phone] GABY CHAHAL Admitting Unavail able GABY CHAHAL Attending Unavail able ASHLEY DEJESUS Primary Care Unavailable ASHLEY DEJESUS Primary Care Unavailable Ashley Dejesus MD Primary Care Provider [phone] RAMANDEEP GARIBAY Attending Unavailable ASHLEY DEJESUS Primary Care Unavailable ALINA JAVIER Attending Unavailable JENNIFER MARTINO Attending Unavailable STEPHANIE BERGER Attending Unavailable ASHLEY DEJESUS Referring Unavailable ASHLEY DEJESUS Primary Care Unavailable Allergies Allergy Classification Reported Allergen(s) Allergy Type Date of Onset Reaction(s) Facility (20 sources) Baclofen; 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: [Baclofen TABS] Drug Allergy 017 Other (See Comments), Shortness of breath [place] (14 sources) Latex; 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: [LATEX] Propensity to adverse reactions to drug 006 Anaphylaxis, Shortness Of Breath, Anaphylaxis (disorder) [place] (9 sources) Penicillins; 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: [penicillins] Propensity to adverse reactions to drug 006 Hives, Anaphylaxis (disorder) [place] (3 sources) rosuvastatin Drug Allergy 019 [place] (19 sources) Sulfamethoxazole / Trimethoprim; 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: [Bactrim TABS] Drug Allergy 019 Hives [place] (11 sources) natural latex rubber Allergy to substance (finding) Shortness of breath [facility] 250 DO Work Phone: (11 sources) Penicillins; 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: [Penicillins] Allergy to drug (finding) Rash [facility] 250 DO Work Phone: (13 sources) rosuvastatin; 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: [Crestor TABS] Drug Allergy 023 Elevated liver enzymes level (finding), Other [facility] (13 sources) Sulfonamides (Antibiotic); 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: [Sulfa Drugs] Allergy to drug (finding) [facility] (7 sources) levoFLOXacin; 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: [levofloxacin] Drug Allergy 017 Other (See Comments), Candidiasis (disorder) [employer] Work Phone: (3 sources) Phenazopyridine; 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: [PHENAZOPYRIDINE HCL] Drug Allergy [employer] Work Phone: (2 sources) Simvastatin Drug Allergy 006 [employer] Phone: (2 sources) Sulfonamides (Antibiotic) Propensity to adverse reactions to drug 022 Other (See Comments) [employer] (3 sources) Tobramycin; 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: [tobramycin] Drug Allergy 023 Eruption of skin (disorder) [facility] (1 source) Baclofen Drug Allergy [facility] (1 source) Latex Drug allergy (disorder) [facility] (5 sources) levoFLOXacin; 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: [Levaquin] Drug Allergy thrush [facility] (1 source) Penicillins Drug allergy (disorder) [facility] (1 source) rosuvastatin Drug Allergy [facility] (1 source) Sulfonamides (Antibiotic) Drug allergy (disorder) [facility] (7 sources) rosuvastatin; 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: [rosuvastatin] Drug Allergy 017 Gastrointestinal Upset [facility] [place] (4 sources) Sulfamethoxazole; 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: [sulfamethoxazole] Drug Allergy [facility] (5 sources) Trimethoprim; 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: [trimethoprim] Drug Allergy 023 [facility] (4 sources) Fenofibrate Drug Allergy 023 ([place]) [facility] (3 sources) Penicillin Drug Allergy ([place]) 08/08/2011 [facility] Other (4 sources) Substance with sulfonamide structure and antibacterial mechanism of action (substance) Drug allergy 023 Shortness of breath [facility] Other (1 source) Baclofen Drug Allergy 023 [facility] [place] [facility] (1 source) Latex Drug allergy (disorder) [facility] [place] [facility] (1 source) levoFLOXacin Drug Allergy 023 [facility] [place] [facility] (1 source) Penicillins Drug allergy (disorder) 023 [facility] [place] [facility] (2 sources) Penicillins Propensity to adverse reactions to drug Hives, Rash [facility] ([facility] source) Tobramycin Drug Allergy 023 Rash [facility] (2 sources) Sulfonamides (Antibiotic); 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: [SULFA (SULFONAMIDE ANTIBIOTICS)] Propensity to adverse reactions to drug (disorder) [facility] 3 Repository (1 source) Fenofibrate; 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: [FENOFIBRATE [...] Ordered Start: 04-17-2018 take 1 capsule by [facility] four times daily cevimeline (Evoxac) 30 mg [...] mouth two times weekly Vitamin D (Ergocalciferol) 53165 UNIT 1 capsule Orally TWICE a Week [...] Start: 04-30-2020 fluticasone 0. 05 mg/inh Nasal [place] Refill(s) 0 Start Date: 04/30/20 Status: Ordered [...] Daily, # 90 tab(s), Refills(s) 3, Pharmacy: [facility], 160, cm, 05/27/21 8:19:00 EDT, Height/Length [...] mouth 2 times a day. 0 Active Auxlmdrmlzeu-Zjk-Nhn n-Fa-Vit K (Bariatric Multivitamins) 45 mg iron- 800 mcg-120 mcg Capsule (3 sources) Start: 3 take 1 capsule by mouth twice daily Multivitamin-Min- Iron-Fa-Vit K (Bariatric Multivitamins) 45 mg iron- 800 mcg-120 mcg Capsule Active 1 CAP PO Twice daily November 01, 2022 1:00am Start: 11-01-2022 take 1 capsule by [facility] twice daily Ixcudnvdngic-Lro-Jmzx-Fa-Vit K (Bariatri c Multivitamins) 45 mg iron- [...] tablet Indications: Atherosclerosis of coronary artery of [place] heart without angina pectoris, unspecified vessel or [...] 0 05/05/2020 Active omega-3 acid ethyl esters (fdc) 1000 mg oral capsule (3 sources) take [...] April 22, 2018 12:01am polyethylene glycol 3350 528079 mg / potassium chloride 2970 mg / sodium bicarbonate 6740 mg / sodium chloride 5860 mg / sodium sulfate 93295 mg powder for oral solution (3 sources) [...] day(s), # 180 cap(s), Refills(s) 3, Pharmacy: [facility], 160, cm, 05/27/21 8:19:00 EDT, Height/Length Dosing, 61, kg, 05/27/21 8:19:00 EDT, Weight Dosing Start Date: 03/14/22 Stop Date: 03/09/23 Status: Ordered Start: 04-17-2018 take 1 capsule by mo [facility] once daily tamsulosin (Flomax) 0.4 mg 24 hr capsule Take 1 capsule (0.4 mg) by mouth once daily. 0 10/26/2020 Active traMADol hydrochloride 50 mg oral tablet (6 sources) Opioid Agonist Start: 11-01-2022 take 50 mg by mouth three times daily Tramadol Active 50 MG PO Three times daily November 01, 2022 1:00am take 1 tablet by [facility] every twenty-four hours traMADol HCl 50 MG [...] ascorbic acid 226 mg / beta carotene 31574 unt / cuprous oxide 0.8 mg / [...] 01, 2022 11:47am take 1 tablet by gavin th every twelve hours Carvedilol 12.5 MG [...] / neomycin 3.5 mg/ml / polymyxin b 74049 unt/ml ophthalmic suspension (3 sources) Aminoglycoside Antibacterial, Polymyxin-class Antibacterial, Corticosteroid Start: 06-13-2021 take 2 drop(s) into the eye(s) four times daily Neomycin-Polymyxin- HC 3.5-71677-5 Ophthalmic Suspension instill 2 drops INTO AFFECTED [...] sources) Coronary atherosclerosis; 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: [Coronary atherosclerosis of [place] coronary artery] Onset: 2 Chronic Coronary atherosclerosis [...] 3 06-18-2023 Chronic Other aftercare (1 source) [facility] (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; 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: [UN[employer]ORM [employer]ER CURRENT USE OF ASPIRIN] Onset: 3 Episodic Other aftercare (1 source) Other nursing home (current) drug therapy; 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: [OTH SNF CURRENT DRUG THERAPY] Onset: 3 Episodic Other [...] Unclassified (1 source) Athscl heart disease of [place] coronary artery w/o ang pctrs / I25.10(ICD-9) [...] 06-18-2023 Surgical Pathology Report (NOTE) Path Number: [id number] -- Diagnosis -- ENDOMETRIAL CURETTINGS: -BENIGN ENDOMETRIAL [...] Microscopic Description Microscopic examination performed. Processing Lab: [facility] [address] [place] [address] Interpretation Performed at [facility] [address] [place], [place] SURGICAL PATHOLOGY CONSULTATION Patient Name: SALEEMJOSE ALBERTO [facility] Rec: [id number] [facility] ANATOMIC PATHOLOGY [facility]. [place], [place] [address] Normal [facility] US NON OB TRANSVAGINALon US NON OB [...] Tello DO 06/05/23 Final result Normal [facility] CHAY Antinuclear Antibodieson 12-12-2022 Antinuclear Abs, IFA Negative Normal . [facility] Comment on above: Order Comment: Reaso n for Exam Elevated liver function tests Result Comment: Nega tive <1:80 Borderline 1:80 Positive >1:80 ICAP nomenclature: AC-0 For more information about Hep-2 cell patterns use ANApatterns.org, the official website for the International Consensus on Antinuclear Antibody (CHAY) Patterns (ICAP). Performed at: - [facility] [id number] Research Technician: Afshin Martinez PhD, Phone: [phone] Performed By: #### H AABT, SMAB, HCV RX PCR, HBSAG, CERULOP, HBCAB, ALPHA PHEN, IGG, MITOM2, HBSAB, CHAY, L-K MICRO #### [facility] , #### ABDIRASHID #### [facility] [address] [id number] Phenotyp anthony 12-12-2022 Alpha 1 Anti-Trypsin 172 mg/dL Normal 101-187 [facility] Comment on above: Order Comment: Reaso n for Exam Elevated liver function tests Performed By: #### H AABT, SMAB, HCV RX PCR, HBSAG, CERULOP, HBCAB, ALPHA PHEN, IGG, MITOM2, HBSAB, CHAY, L-K MICRO #### [facility] , #### ABDIRASHID #### [address] Phenotype (P1) MM Normal . [facility] [place] Comment on above: Order Comment: Reaso n [...] Ranges used to confirm phenotype. Performed at: [address] [id number] Research Technician: Afshin Martinez PhD, Phone: [phone] Performed at: [address] [id number] Research Technician: Toni Guidry MD, Phone: [phone] Performed By: #### H AABT, SMAB, HCV RX PCR, HBSAG, CERULOP, HBCAB, ALPHA PHEN, IGG, MITOM2, HBSAB, CHAY, L-K MICRO #### [facility] , #### ABDIRASHID #### [facility] [address] [place], [place] [id number] [facility] Ceruloplasminon 12-12-2022 Ceruloplasmin 30.6 mg/dL Normal 19.0-39.0 [facility] [place] Comment on above: Order Comment: Reaso n for Exam Elevated liver function tests Performed By: #### H AABT, SMAB, HCV RX PCR, HBSAG, CERULOP, HBCAB, ALPHA PHEN, IGG, MITOM2, HBSAB, CHAY, L-K MICRO #### [facility] , #### ABDIRASHID #### [address] Ceruloplasmin 30.6 mg/dL 19.0-39.0 mg/dL [facility] [employer] Other Ferritinon 12-12-2022 Ferritin [Mass/Vol] 43.8 ng/mL Normal 11.0-306.8 [facility] Comment on above: Order Comment: Reaso n for Exam Elevated liver function tests Result Comment: PERF ORMED BY: [place] [address] PATHOLOGIST INDUCTION FURNACE OPERATOR JULISSA GA M.D. Performed By: #### H AABT, SMAB, HCV RX PCR, HBSAG, CERULOP, HBCAB, ALPHA PHEN, IGG, MITOM2, HBSAB, CHAY, L-K MICRO #### [facility] , #### ABDIRASHID #### [facility] [address] [place] [address] Ferritin [Mass/Vol] 43.1164078 ng/mL Normal 11.0 -306.8 ng/mL [facility] [employer] Other Hep C Ab wRfx to Qnt PCRon 0 12-12-2022 Hepatitis C Virus Antibody Non-Reactive Normal Non Reactive [facility] [place] Comment on above: Order Comment: Reaso n for Exam Elevated liver function tests Performed By: #### H AABT, SMAB, HCV RX PCR, HBSAG, CERULOP, HBCAB, ALPHA PHEN, IGG, MITOM2, HBSAB, CHAY, L-K MICRO #### [facility] , #### ABDIRASHID #### [address] Interpretation Hepatitis C Normal . [facility] [place] Comment on above: Order Comment: Reaso n [...] MICRO #### [facility] , #### ABDIRASHID #### [facility] [address] Hepatitis A Antibody Totalon 12-12-2022 Hepatitis A Antibody Total Negative Normal Negative [facility] [place] Comment on above: Order Comment: Reaso n for Exam Elevated liver function tests Result Comment: Perf ormed at: - [facility] [id number] Research Technician: Afshin Martinez PhD, Phone: [phone] Performed By: #### H AABT, SMAB, HCV RX PCR, HBSAG, CERULOP, HBCAB, ALPHA PHEN, IGG, MITOM2, HBSAB, CHAY, L-K MICRO #### [facility] , #### ABDIRASHID #### [address] Hepatitis A Antibody Total Negative . [facility] Other Hepatitis B Core Antibodyon 12-12-2022 Hepatitis B Core Antibody Negative Normal Negative [facility] [place] Comment on above: Order Comment: Reaso n for Exam Elevated liver function tests Performed By: #### H AABT, SMAB, HCV RX PCR, HBSAG, CERULOP, HBCAB, ALPHA PHEN, IGG, MITOM2, HBSAB, CHAY, L-K MICRO #### [facility] , #### ABDIRASHID #### [facility] [address] [place] [address] [place] Hepatitis B Surface Antibody on 12-12-2022 Hepatitis B Surface Antibody Non-Reactive Normal . [facility] [place] Comment on above: Order Comment: Reaso n for Exam Elevated liver function tests Result Comment: Non Reactive: Inconsistent with immunity, less than 10 mIU/mL Reactive: Consistent with immunity, greater than 9.9 mIU/mL Performed By: #### H AABT, SMAB, HCV RX PCR, HBSAG, CERULOP, HBCAB, ALPHA PHEN, IGG, MITOM2, HBSAB, CHAY, L-K MICRO #### [facility] , #### ABDIRASHID #### [address] Hepatitis B Surface Antibody Non-Reactive Non Reactive [facility] Other Hepatitis B Surface Antigeno n 12-12-2022 HBsAg Screen Negative Normal Negative [facility] [place] Comment on above: Order Comment: Reaso n for Exam Elevated liver function tests Result Comment: PERF ORMED BY: [place] [address] PATHOLOGIST INDUCTION FURNACE OPERATOR JULISSA GA M.D. Performed By: #### H AABT, SMAB, HCV RX PCR, HBSAG, CERULOP, HBCAB, ALPHA PHEN, IGG, MITOM2, HBSAB, CHAY, L-K MICRO #### [facility] , #### ABDIRASHID #### [address] Immunoglobulin Javi Immunoglobulin G 823 mg/dL Normal [phone] [facility] Comment on above: Order Comment: Reaso n for Exam Elevated liver function tests Result Comment: Perf ormed at: [facility] [id number] Research Technician: Afshin Martinez PhD, Phone: [phone] Performed By: #### H AABT, SMAB, HCV RX PCR, HBSAG, CERULOP, HBCAB, ALPHA PHEN, IGG, MITOM2, HBSAB, CHAY, L-K MICRO #### [facility] , #### ABDIRASHID #### [facility] [address] [place] [address] Immunoglobulin G 823 mg/dL 586-1602 mg/dL [facility] Other Liver-Kidney Microsomal Abon 12-12-2022 Liver-Kidney Microsomal Ab 1.1 Normal 0.0-20.0 [facility] [place] Comment on above: Order Comment: Reaso n for Exam Elevated liver function tests Result Comment: Nega tive 0.0 - 20.0 Equivocal 20.1 - 24.9 Positive >24.9 LKM type 1 antibodies are detected in patients with autoimmune hepatitis type 2 and in up to 8% of patients with chronic HCV infection. Performed at: [address] [id number] Research Technician: Afshin Martinez PhD, Phone: [phone] PERFORMED BY: [place] [address] PATHOLOGIST INDUCTION FURNACE OPERATOR JULISSA GA M.D. Performed By: #### H AABT, SMAB, HCV RX PCR, HBSAG, CERULOP, HBCAB, ALPHA PHEN, IGG, MITOM2, HBSAB, CHAY, L-K MICRO #### [facility] , #### ABDIRASHID #### [address] Liver-Kidney Microsomal Ab 1.1 0.0-20.0 [facility] Other Mitochondrial (M2) Antibodyo n 12-12-2022 Mitochondrial (M2) Antibody <20.0 Normal 0.0-20.0 [facility] [place] Comment on above: Order Comment: Reaso n for Exam Elevated liver function tests Result Comment: Nega tive 0.0 - 20.0 Equivocal 20.1 - 24.9 Positive >24.9 Mitochondrial (M2) Antibodies are found in 90-96% of patients with primary biliary cirrhosis. Performed at: [facility] [employer] [id number] Research Technician: Afshin Martinez PhD, Phone: [phone] Performed By: #### H AABT, SMAB, HCV RX PCR, HBSAG, CERULOP, HBCAB, ALPHA PHEN, IGG, MITOM2, HBSAB, CHAY, L-K MICRO #### [facility] , #### ABDIRASHID #### [facility] [address] [place] [address] Mitochondrial (M2) Antibody <20.0 0.0-20.0 [facility] [employer] Other Smooth Muscle Antibodyon Smooth Muscle Antibody 5 Normal 0-19 [facility] Comment on above: Order Comment: Reaso [...] MICRO #### [facility] , #### ABDIRASHID #### [address] [address] [facility] Smooth Muscle Antibody 5 0-19 [facility] [employer] Other MR MRCPon 11-10-2022 MR MRCP [facility] [address] [place] [address] MRI Report Signed Patient: Jose Alberto Saleem MR#: [id number] : 1965 Acct:[id number] Age/Sex: 57 / F ADM Date: 11/10/22 Loc: Room: Type: [facility] Attending Dr: Evert Bruno MD Copies to: [...] There is no dilated bowel within the lspxh-dl-abwf. MR/MR MRCP IMPRESSION: SLIGHTLY PROMINENT COMMON DUCT, WITHOUT CHOLEDOCHOLITHIASIS. THIS MAY RELATE TO PREVIOUS CHOLECYSTECTOMY. RIGHT RENAL CYSTS. NO OTHER SIGNIFICANT MRI FINDINGS. Impression dictated by: Thelma Wick M.D.11/10/2022 7:00 PM Dictation Location: [place] [address] Transcribed By: [facility] 11/10/221899 Dictated By: Thelma Wick MD 11/10/221849 Signed By: 11/10/221899 Normal [facility] [place] MR MRCP [facility] [employer] Other MR MRCP [facility] [employer] Other MR MRCP [address] [place] [address] [employer] Other MR MRCP [address] [employer] Other MR MRCP MRI Report [facility] [employer] Other MR MRCP Signed [facility] Other MR MRCP Patient: Jose Alberto Saleem MR#: [id number] [employer] Other MR MRCP 571 [facility] [employer] Other MR MRCP : 1965 Acct:[id number] [facility] Other MR MRCP Age/Sex: 57 / F ADM Date: 11/10/22 [facility] Other MR MRCP Loc: MR Room: Type: [facility] Step-In Other MR MRCP Attending Dr: Evert Bruno MD [facility] Other MR MRCP Copies to: Evert Bruno MD [facility] Other MR MRCP Ordering Provider: Evert Bruno MD [facility] Other MR MRCP Date of Service: 11/10/22 [facility] Other MR MRCP MR/MR MRCP: Abdominal pain;Common bile duct dilatation;Elevated liver en [facility] Other MR MRCP MRCP [facility] Other MR MRCP CLINICAL DATA: Elevated lipase. Abnormal outside abdominal CT [facility] Other MR MRCP COMPARISON: CT abdomen 10/16/2022 [facility] Other MR MRCP Multiecho imaging of the abdomen was performed along with radial imaging of the biliary tree. [facility] Other MR MRCP The gallbladder surgically absent. There is no significant intrahepatic biliary dilatation. The [facility] Other MR MRCP common duct is slightly prominent measuring up to 6 mm. It tapers toward the ampulla. No in [facility] Other MR MRCP traluminal filling defects are identified to suggest choledocholithiasis. The pancreatic duct is [facility] Other MR MRCP also borderline prominent measuring 2 - 3 mm. No intrahepatic masses are identified. No pancreatic [facility] Other MR MRCP abnormalities are noted. The spleen and adrenal glands are within normal limits. There is no [facility] Other MR MRCP hydronephrosis. There are right renal cysts. There is no aortic aneurysm. No adenopathy or [facility] Other MR MRCP ascites is seen. There is no dilated bowel within the xtgkx-eb-pvek. [facility] Other MR MRCP MR/MR MRCP [facility] Other MR MRCP IMPRESSION: [facility]In Other MR MRCP SLIGHTLY PROMINENT COMMON DUCT, WITHOUT CHOLEDOCHOLITHIASIS. THIS MAY RELATE TO PREVIOUS [facility] Other MR MRCP CHOLECYSTECTOMY. [facility] [employer] Other MR MRCP RIGHT RENAL CYSTS. [facility] Other MR MRCP NO OTHER SIGNIFICANT MRI FINDINGS. [facility] Other MR MRCP Impression dictated by: Thelma Wick M.D.11/10/2022 7:00 PM [facility] Other MR MRCP Dictation Location: [place] [address] [facility]In Other MR MRCP Transcribed By: [facility] 11/10/221899 [facility] Other MR MRCP Dictated By: Thelma Wick MD 11/10/221849 [facility] Other MR MRCP Signed By: [facility] Other MR MRCP 11/10/221899 [facility] Other Albumin [Mass/volume] in Ser um or PlasmaOrdered By: Imsara Bruno on 11-01-2022 Albumin [Mass/Vol] 4.0 g/dL 3.2-5.5 [facility] Direct bilirubin measurement Ordered By: Imad Asasara on 11-01-2022 Bilirubin.direct [Mass/Vol] 0.1 mg/dL 0.0-0.4 [facility] [place] Globulin Calc (S) [Mass/Vol] Ordered By: Imad Asaad on 11-01-2022 Globulin (S) [Mass/Vol] 2.5 g/dL [facility] [place] Hepatic Panelon 11-01-2022 Albumin [Mass/Vol] 4.336345 g/dL Normal 3.2-5.5 g/dL N [facility] [employer] Other Bilirubin [Mass/Vol] 0.3839828 mg/dL Normal 0.3- 1.2 mg/dL [facility] Other Bilirubin.indirect [Mass/Vol] 0.0452525 mg/dL Normal 0.0-0.4 mg/dL [facility] Other Protein [Mass/Vol] 6.151834 g/dL Normal 6.1-7.9 g/dL N [facility] [employer] Other Hepatic Panel 0.5 mg/dL [facility] Other Hepatic Panel 2.5 g/dL [facility] Other Albumin [Mass/Vol] 4.0 g/dL Normal 3.2-5.5 [facility] Comment on above: Order Comment: Reaso n for Exam Elevated liver enzymes Performed By: #### H EPATIC #### [facility] [address] [place] [address] [place] Albumin/Globulin [Mass ratio] 1.6 {ratio} Normal [facility] [place] Comment on above: Order Comment: Reaso n for Exam Elevated liver enzymes Performed By: #### H EPATIC #### [facility] [address] [place] [address] [place] ALP [Catalytic activity/Vol] 93 U/L High 32-92 [facility] [place] Comment on above: Order Comment: Reaso n for Exam Elevated liver enzymes Result Comment: PERF ORMED BY: [facility] [address] [facility] [place] [id number] PATHOLOGIST INDUCTION FURNACE OPERATOR JULISSA GA M.D. Performed By: #### H EPATIC #### [facility] [address] [place] [address] [place] ALT [Catalytic activity/Vol] 94 U/L High 10-60 [facility] [employer] Other Comment on above: Order Comment: Reaso n for Exam Elevated liver enzymes Performed By: #### H EPATIC #### [facility] [address] [place] [address] [place] AST [Catalytic activity/Vol] 66 U/L High 10-42 [facility] [place] Comment on above: Order Comment: Reaso n for Exam Elevated liver enzymes Performed By: #### H EPATIC #### [facility] [address] [place], [place] [id number] [place] Bilirubin [Mass/Vol] 0.6 mg/dL Normal 0.3-1.2 [facility] Comment on above: Order Comment: Reaso n for Exam Elevated liver enzymes Performed By: #### H EPATIC #### [place] [id number] [place] Bilirubin,Indirect 0.5 mg/dL Normal [facility] Comment on above: Order Comment: Reaso n for Exam Elevated liver enzymes Performed By: #### H EPATIC #### [place] [address] [place] Bilirubin.indirect [Mass/Vol] 0.1 mg/dL Normal 0.0-0.4 [facility] [place] Comment on above: Order Comment: Reaso n for Exam Elevated liver enzymes Performed By: #### H EPATIC #### [place] [id number] [place] Globulin (S) [Mass/Vol] 2.5 g/dL Normal [facility] [place] Comment on above: Order Comment: Reaso n for Exam Elevated liver enzymes Performed By: #### H EPATIC #### [place] [id number] [place] Protein [Mass/Vol] 6.5 g/dL Normal 6.1-7.9 [facility] Comment on above: Order Comment: Reaso n for Exam Elevated liver enzymes Performed By: #### H EPATIC #### [facility] [address] [place], [place] [id number] [place] Protein [Mass/volume] in Ser um or PlasmaOrdered By: Evert Bruno on 11-01-2022 Protein [Mass/Vol] 6.5 g/dL 6.1-7.9 [facility] Serum or plasma alanine li otransferase measurement without P-5'-P (enzymatic activiOrdered By: Evert Bruno on 11-01-2022 ALT No additional P-5'-P [Catalytic activity/Vol] 94 U/L 10-60 [facility] [place] Serum or plasma albumin/glob ulin mass ratioOrdered By: [facility] on 11-01-2022 Albumin/Globulin [Mass ratio] 1.6 {ratio} [facility] [place] Serum or plasma alkaline monster sphatase measurement (enzymatic activity/volume)Ordered By: Imad Asaad on 11-01-2022 ALP [Catalytic activity/Vol] 93 U/L 32-92 [facility] [place] Serum or plasma aspartate am inotransferase measurement (enzymatic activity/volume)Ordered By: Imad Asaad on 11-01-2022 AST [Catalytic activity/Vol] 66 U/L 10-42 [facility] [place] Serum or plasma non-glucuron idated bilirubin measurement (mass/volume)Ordered By: ad [facility] on 11-01-2022 Bilirubin.indirect [Mass/Vol] 0.5 mg/dL [facility] [place] Serum or plasma total biliru bin measurement (mass/volume)Ordered By: Imad Asa on 11-01-2022 Bilirubin [Mass/Vol] 0.6 mg/dL 0.3-1.[address] [facility] [address] ABDOMEN WO/W CONon 2022 CT [...] JAE WILSON Date: 2022-10-17 08:23 Normal [facility] AMMONIAon 10-09-2022 Ammonia (P) [Moles/Vol] 10 umol/L Critically low 11-32 [facility] Comment on above: Performed By: #### A MY #### [facility] [address] [place] [address] Dr. Ayden Cam AMYLASEon 10-09-2022 Amylase [Catalytic activity/Vol] 144 U/L Critically high 25-115 [facility] Comment on above: Performed By: #### L IPA #### [facility] [address] [place] [address] Dr. Ayden Cam CBC AUTO DIFFon 10-09-2022 BASO # 0.0 103/ul Normal 0.0-0.1 [facility] Comment on above: Performed By: #### C BC #### [facility] [address] [place] [address] Dr. Ayden Cam Basophils/100 WBC (Bld) 0.2 % Normal 0.2-2.0 [facility] Comment on above: Performed By: #### C BC #### [facility] [address] [place] [address] Dr. Ayden Cam EO # 0.2 103/ul Normal 0.0-0.7 [facility] Comment on above: Performed By: #### C BC #### [facility] [address] [place] [address] Dr. Ayden Cam Eosinophils/100 WBC (Bld) 3.3 % Normal 0.9-7.0 [facility] Comment on above: Performed By: #### C BC #### [facility] [address] [place] [address] Dr. Ayden Cam Erythrocyte distribution width (RBC) [Ratio] 12.1 % Normal 11.0-15.0 [facility] Comment on above: Performed By: #### C BC #### [facility] [address] [place] [address] Dr. Ayden Cam Hematocrit (Bld) [Volume fraction] 40.0 % Normal 36.0-48.0 [facility] Comment on above: Performed By: #### C BC #### [facility] [address] [place] [address] Dr. Ayden Cam Hemoglobin (Bld) [Mass/Vol] 14.2 g/dL Normal 12.0-16.0 [facility] Comment on above: Performed By: #### C BC #### [facility] [address] [place] [address] Dr. Ayden Cam IG # 0.01 10e3/ul Normal 0.00-0.03 [facility] Comment on above: Performed By: #### C BC #### [facility] [address] [place] [address] Dr. Ayden Cam IG % 0.2 % Normal 0.0-0.5 [facility] Comment on above: Performed By: #### C BC #### [facility] [address] [place] [address] Dr. Ayden Cam LYMPH # 1.5 103/ul Normal 1.2-3.8 [facility] Comment on above: Performed By: #### C BC #### [facility] [address] [place] [address] Dr. Ayden Cam Lymphocytes/100 WBC (Bld) 24.2 % Normal 20.5-60.0 [facility] Comment on above: Performed By: #### C BC #### [facility] [address] [place] [address] Dr. Ayden Cam MANUAL DIFF REQ NO Normal [facility] Comment on above: Performed By: #### C BC #### [facility] [address] [place] [address] Dr. Ayden Cam MCH (RBC) [Entitic mass] 30.0 pg Normal 26.7-34.0 [facility] Comment on above: Performed By: #### C BC #### [facility] [address] [place] [address] Dr. Ayden Cam MCHC (RBC) [Mass/Vol] 35.5 g/dL Critically high 29.9-35.2 [facility] Comment on above: Performed By: #### C BC #### [facility] [address] [place] [address] Dr. Ayden Cam MCV (RBC) [Entitic vol] 84.4 fL Normal 81.0-99.0 [facility] Comment on above: Performed By: #### C BC #### [facility] [address] [address] [address] Ayden Cam MONO # 0.6 103/ul Normal 0.3-0.8 [facility] Comment on above: Performed By: #### C BC #### [facility] [address] [place] [address] Dr. Ayden Cam Monocytes/100 WBC (Bld) 10.3 % Normal 1.7-12.0 [facility] Comment on above: Performed By: #### C BC #### [facility] [address] [place] [address] Dr. Ayden Cam NEUT # 3.7 103/ul Normal 1.4-6.5 [facility] Comment on above: Performed By: #### C BC #### [facility] [address] [place] [address] Dr. Ayden Cam Neutrophils/100 WBC (Bld) 61.8 % Normal 43.0-75.0 [facility] Comment on above: Performed By: #### C BC #### [facility] [address] [place] [address] Dr. Ayden Cam Platelet mean volume (Bld) [Entitic vol] 9.0 fL Critically low 9.5-13.5 [facility] Comment on above: Performed By: #### C BC #### [facility] [address] [place] [address] Dr. Ayden Cam PLT 191 103/ul Normal 150-450 [facility] Comment on above: Performed By: #### C BC #### [facility] [address] [place] [address] Dr. Ayden Cam RBC 4.74 106/ul Normal 4.20-5.40 [facility] Comment on above: Performed By: #### C BC #### [facility] [address] [place] [address] Dr. Ayden Cam WBC 6.0 103/ul Normal 4.0-11.0 [facility] Comment on above: Performed By: #### C BC #### [facility] [address] [place] [address] Dr. Ayden Cam LIPASEon 10-09-2022 Lipase [Catalytic activity/Vol] 168.0 U/L Normal 73.0-393.0 [facility] Comment on above: Performed By: #### L ACT #### [facility] [address] [place] [address] Dr. Ayden Cam PROF 14(COMP METB)on 023 Albumin [Mass/Vol] 3.6 g/dL Normal 3.4-5.0 [facility] Comment on above: Performed By: #### L IPA #### [facility] [address] [place] [address] Dr. Ayden Cam Albumin/Globulin [Mass ratio] 1.1 {ratio} Normal [facility] Comment on above: Performed By: #### L IPA #### [facility] [address] [place] [address] Dr. Ayden Cam ALP [Catalytic activity/Vol] 93 U/L Normal 46-116 [facility] Comment on above: Performed By: #### L IPA #### [facility] [address] [place] [address] Dr. Ayden Cam ALT [Catalytic activity/Vol] 52 U/L Normal 14-59 [facility] Comment on above: Performed By: #### L IPA #### [facility] [address] [place] [address] Dr. Ayden Cam Anion gap [Moles/Vol] 10.2 mmol/L Normal [facility] Comment on above: Performed By: #### L IPA #### [facility] [address] [place] [address] Dr. Ayden Cam AST [Catalytic activity/Vol] 33 U/L Normal 15-37 [facility] Comment on above: Performed By: #### L IPA #### [facility] [address] [address] [address] Ayden Cam Bilirubin [Mass/Vol] 0.3 mg/dL Normal 0.2-1.0 [facility] Comment on above: Performed By: #### L IPA #### [facility] [address] [address] [address] Ayden Cam Calcium [Mass/Vol] 9.4 mg/dL Normal 8.5-10.1 [facility] Comment on above: Performed By: #### L IPA #### [facility] [address] [address] [address] Ayden Cam Chloride [Moles/Vol] 99 mmol/L Normal 98-107 [facility] Comment on above: Performed By: #### L IPA #### [facility] [address] [place] [address] Dr. Ayden Cam CO2 [Moles/Vol] 33.7 mmol/L Critically high 21.0-32.0 [facility] Comment on above: Performed By: #### L IPA #### [facility] [address] [place] [address] Dr. Ayden Cam Creatinine [Mass/Vol] 0.62 mg/dL Normal 0.55-1.02 [facility] Comment on above: Performed By: #### L IPA #### [facility] [address] [place] [address] Dr. Ayden Cam EGFR-AF SCOTTISH >60 Normal >=60 [facility] Comment on above: Performed By: #### L IPA #### [facility] [address] [address] [address] Ayden Cam EGFR-NON AF SCOTTISH >60 Normal >=60 [facility] Comment on above: Performed By: #### L IPA #### [facility] [address] [address] [address] Ayden Cam Globulin (S) [Mass/Vol] 3.4 g/dL Normal [facility] Comment on above: Performed By: #### L IPA #### [facility] [address] [address] [address] Ayden Cam Glucose [Mass/Vol] 105 mg/dL Normal 74-106 [facility] Comment on above: Performed By: #### L IPA #### [facility] [address] [address] [address] Ayden Cam Potassium [Moles/Vol] 3.9 mmol/L Normal 3.5-5.1 [facility] Comment on above: Performed By: #### L IPA #### [facility] [address] [address] [address] Ayden Cam Protein [Mass/Vol] 7.0 g/dL Normal 6.4-8.2 [facility] Comment on above: Performed By: #### L IPA #### [facility] [address] [address] [address] Ayden Cam Sodium [Moles/Vol] 139 mmol/L Normal 136-145 [facility] Comment on above: Performed By: #### L IPA #### [facility] [address] [address] [address] Ayden Cam Urea nitrogen [Mass/Vol] 28.0 mg/dL Critically high 7.0-18.0 [facility] Comment on above: Performed By: #### L IPA #### [facility] [address] [address] [address] Ayden Cam Urea nitrogen/Creatinine [Mass ratio] 45.2 mg/mg Normal [facility] Comment on above: Performed By: #### L IPA #### [facility] [address] [address] [address] Ayden Cam AMMONIAon 10-06-2022 Ammonia (P) [Moles/Vol] 16 umol/L Normal 11-32 [facility] Comment on above: Performed By: #### A MM #### [facility] [address] [address] [address] Ayden Cam AMYLASEon 10-06-2022 Amylase [Catalytic activity/Vol] 189 U/L Critically high 25-115 [facility] Comment on above: Performed By: #### L IPA #### [facility] [address] [address] [address] Ayden Cam CBC AUTO DIFFon 10-06-2022 BASO # 0.0 103/ul Normal 0.0-0.1 [facility] Comment on above: Performed By: #### C BC #### [facility] [address] [address] [address] Ayden Cam Basophils/100 WBC (Bld) 0.2 % Normal 0.2-2.0 [facility] Comment on above: Performed By: #### C BC #### [facility] [address] [place] [address] Dr. Ayden Cam EO # 0.3 103/ul Normal 0.0-0.7 [facility] Comment on above: Performed By: #### C BC #### [facility] [address] [place] [address] Dr. Ayden Cam Eosinophils/100 WBC (Bld) 5.2 % Normal 0.9-7.0 [facility] Comment on above: Performed By: #### C BC #### [facility] [address] [place] [address] Dr. Ayden Cam Erythrocyte distribution width (RBC) [Ratio] 12.3 % Normal 11.0-15.0 [facility] Comment on above: Performed By: #### C BC #### [facility] [address] [place] [address] Dr. Ayden Cam Hematocrit (Bld) [Volume fraction] 36.9 % Normal 36.0-48.0 [facility] Comment on above: Performed By: #### C BC #### [facility] [address] [place] [address] Dr. Ayden Cam Hemoglobin (Bld) [Mass/Vol] 12.4 g/dL Normal 12.0-16.0 [facility] Comment on above: Performed By: #### C BC #### [facility] [address] [place] [address] Dr. Ayden Cam IG # 0.01 10e3/ul Normal 0.00-0.03 [facility] Comment on above: Performed By: #### C BC #### [facility] [address] [place] [address] Dr. Ayden Cam IG % 0.2 % Normal 0.0-0.5 [facility] Comment on above: Performed By: #### C BC #### [facility] [address] [place] [address] Dr. Ayden Cam LYMPH # 1.8 103/ul Normal 1.2-3.8 [facility] Comment on above: Performed By: #### C BC #### [facility] [address] [place] [address] Dr. Ayden Cam Lymphocytes/100 WBC (Bld) 31.3 % Normal 20.5-60.0 [facility] Comment on above: Performed By: #### C BC #### [facility] [address] [place] [address] Dr. Ayden Cam MANUAL DIFF REQ NO Normal [facility] Comment on above: Performed By: #### C BC #### [facility] [address] [place] [address] Dr. Ayden Cam MCH (RBC) [Entitic mass] 30.0 pg Normal 26.7-34.0 [facility] Comment on above: Performed By: #### C BC #### [facility] [address] [place] [address] Dr. Ayden Cam MCHC (RBC) [Mass/Vol] 33.6 g/dL Normal 29.9-35.2 [facility] Comment on above: Performed By: #### C BC #### [facility] [address] [place] [address] Dr. Ayden Cam MCV (RBC) [Entitic vol] 89.1 fL Normal 81.0-99.0 [facility] Comment on above: Performed By: #### C BC #### [facility] [address] [place] [address] Dr. Ayden Cam MONO # 0.6 103/ul Normal 0.3-0.8 [facility] Comment on above: Performed By: #### C BC #### [facility] [address] [place] [address] Dr. Ayden Cam Monocytes/100 WBC (Bld) 10.1 % Normal 1.7-12.0 [facility] Comment on above: Performed By: #### C BC #### [facility] [address] [place] [address] Dr. Ayden Cam NEUT # 3.1 103/ul Normal 1.4-6.5 [facility] Comment on above: Performed By: #### C BC #### [facility] [address] [place] [address] Dr. Ayden Cam Neutrophils/100 WBC (Bld) 53.0 % Normal 43.0-75.0 [facility] Comment on above: Performed By: #### C BC #### [facility] [address] [place] [address] Dr. Ayden Cam Platelet mean volume (Bld) [Entitic vol] 9.4 fL Critically low 9.5-13.5 [facility] Comment on above: Performed By: #### C BC #### [facility] [address] [place] [address] Dr. Ayden Cam PLT 153 103/ul Normal 150-450 [facility] Comment on above: Performed By: #### C BC #### [facility] [address] [place] [address] Dr. Ayden Cam RBC 4.14 106/ul Critically low 4.20-5.40 [facility] Comment on above: Performed By: #### C BC #### [facility] [address] [place] [address] Dr. Ayden Cam WBC 5.8 103/ul Normal 4.0-11.0 [facility] Comment on above: Performed By: #### C BC #### [facility] [address] [place] [address] Dr. Ayden Cam LIPASEon 10-06-2022 Lipase [Catalytic activity/Vol] 166.0 U/L Normal 73.0-393.0 [facility] Comment on above: Performed By: #### L IPA #### [facility] [address] [address] [address] Ayden Cam LIVER PROFILEon 10-06-2022 Albumin [Mass/Vol] 3.2 g/dL Critically low 3.4-5.0 [facility] Comment on above: Performed By: #### L IPA #### [facility] [address] [place] [address] Dr. Ayden Cam Albumin/Globulin [Mass ratio] 1.3 {ratio} Normal [facility] Comment on above: Performed By: #### L IPA #### [facility] [address] [place] [address] Dr. Ayden Cam ALP [Catalytic activity/Vol] 88 U/L Normal 46-116 [facility] Comment on above: Performed By: #### L IPA #### [facility] [address] [place] [address] Dr. Ayden Cam ALT [Catalytic activity/Vol] 66 U/L Critically high 14-59 [facility] Comment on above: Performed By: #### L IPA #### [facility] [address] [place] [address] Dr. Ayden Cam AST [Catalytic activity/Vol] 39 U/L Critically high 15-37 [facility] Comment on above: Performed By: #### L IPA #### [facility] [address] [place] [address] Dr. Ayden Cam BILI, CONJUGATED 0.1 mg/dL Normal 0.0-0.2 [facility] Comment on above: Performed By: #### L IPA #### [facility] [address] [place] [address] Dr. Ayden Cam Bilirubin [Mass/Vol] 0.4 mg/dL Normal 0.2-1.0 [facility] Comment on above: Performed By: #### L IPA #### [facility] [address] [place] [address] Dr. Ayden Cam Globulin (S) [Mass/Vol] 2.4 g/dL Normal [facility] Comment on above: Performed By: #### L IPA #### [facility] [address] [place] [address] Dr. Ayden Cam Protein [Mass/Vol] 5.6 g/dL Critically low 6.4-8.2 [facility] Comment on above: Performed By: #### L IPA #### [facility] [address] [address] [address] Ayden Cam PROF CHEM 8 (BAS METB)on Anion gap [Moles/Vol] 6.8 mmol/L Normal [facility] Comment on above: Performed By: #### L IPA #### [facility] [address] [address] [address] Ayden Cam Calcium [Mass/Vol] 8.6 mg/dL Normal 8.5-10.1 [facility] Comment on above: Performed By: #### L IPA #### [facility] [address] [place] [address] Dr. Ayden Cam Chloride [Moles/Vol] 102 mmol/L Normal 98-107 [facility] Comment on above: Performed By: #### L IPA #### [facility] [address] [address] [address] Ayden Cam CO2 [Moles/Vol] 32.6 mmol/L Critically high 21.0-32.0 [facility] Comment on above: Performed By: #### L IPA #### [facility] [address] [place] [address] Dr. Ayden Cam Creatinine [Mass/Vol] 0.61 mg/dL Normal 0.55-1.02 [facility] Comment on above: Performed By: #### L IPA #### [facility] [address] [address] [address] Ayden Cam EGFR-AF SCOTTISH >60 Normal >=60 [facility] Comment on above: Performed By: #### L IPA #### [facility] [address] [address] [address] Ayden Cam EGFR-NON AF SCOTTISH >60 Normal >=60 [facility] Comment on above: Performed By: #### L IPA #### [facility] [address] [place] [address] Dr. Ayden Cam Glucose [Mass/Vol] 91 mg/dL Normal 74-106 [facility] Comment on above: Performed By: #### L IPA #### [facility] [address] [place] [address] Dr. Ayden Cam Potassium [Moles/Vol] 3.4 mmol/L Critically low 3.5-5.1 [facility] Comment on above: Performed By: #### L IPA #### [facility] [address] [address] [address] Ayden Cam Sodium [Moles/Vol] 138 mmol/L Normal 136-145 [facility] Comment on above: Performed By: #### L IPA #### [facility] [address] [place] [address] Dr. Ayden Cam Urea nitrogen [Mass/Vol] 13.0 mg/dL Normal 7.0-18.0 [facility] Comment on above: Performed By: #### L IPA #### [facility] [address] [place] [address] Dr. Ayden Cam Urea nitrogen/Creatinine [Mass ratio] 21.3 mg/mg Normal [facility] Comment on above: Performed By: #### L IPA #### [facility] [address] [place] [address] Dr. Ayden Cam AMMONIAon 10-05-2022 Ammonia (P) [Moles/Vol] 10 umol/L Critically low 11-32 [facility] Comment on above: Performed By: #### A MM #### [facility] [address] [place] [address] Dr. Ayden Cam AMYLASEon 10-05-2022 Amylase [Catalytic activity/Vol] 109 U/L Normal 25-115 [facility] Comment on above: Performed By: #### A MY #### [facility] [address] [place] [address] Dr. Ayden Cam CBC AUTO DIFFon 10-05-2022 BASO # 0.0 103/ul Normal 0.0-0.1 [facility] Comment on above: Performed By: #### L IPA #### [facility] [address] [place] [address] Dr. Ayden Cam Basophils/100 WBC (Bld) 0.3 % Normal 0.2-2.0 [facility] Comment on above: Performed By: #### L IPA #### [facility] [address] [place] [address] Dr. Ayden Cam EO # 0.3 103/ul Normal 0.0-0.7 [facility] Comment on above: Performed By: #### L IPA #### [facility] [address] [place] [address] Dr. Ayden Cam Eosinophils/100 WBC (Bld) 4.3 % Normal 0.9-7.0 [facility] Comment on above: Performed By: #### L IPA #### [facility] [address] [place] [address] Dr. Ayden Cam Erythrocyte distribution width (RBC) [Ratio] 12.2 % Normal 11.0-15.0 [facility] Comment on above: Performed By: #### L IPA #### [facility] [address] [place] [address] Dr. Ayden Cam Hematocrit (Bld) [Volume fraction] 38.9 % Normal 36.0-48.0 [facility] Comment on above: Performed By: #### L IPA #### [facility] [address] [place] [address] Dr. Ayden Cam Hemoglobin (Bld) [Mass/Vol] 12.8 g/dL Normal 12.0-16.0 [facility] Comment on above: Performed By: #### L IPA #### [facility] [address] [place] [address] Dr. Ayden Cam IG # 0.01 10e3/ul Normal 0.00-0.03 [facility] Comment on above: Performed By: #### L IPA #### [facility] [address] [place] [address] Dr. Ayden Cam IG % 0.2 % Normal 0.0-0.5 [facility] Comment on above: Performed By: #### L IPA #### [facility] [address] [place] [address] Dr. Ayden Cam LYMPH # 1.9 103/ul Normal 1.2-3.8 [facility] Comment on above: Performed By: #### L IPA #### [facility] [address] [place] [address] Dr. Ayden Cam Lymphocytes/100 WBC (Bld) 31.4 % Normal 20.5-60.0 [facility] Comment on above: Performed By: #### L IPA #### [facility] [address] [place] [address] Dr. Ayden Cam MANUAL DIFF REQ NO Normal [facility] Comment on above: Performed By: #### L IPA #### [facility] [address] [place] [address] Dr. Ayden Cam MCH (RBC) [Entitic mass] 29.6 pg Normal 26.7-34.0 [facility] Comment on above: Performed By: #### L IPA #### [facility] [address] [place] [address] Dr. Ayden Cam MCHC (RBC) [Mass/Vol] 32.9 g/dL Normal 29.9-35.2 [facility] Comment on above: Performed By: #### L IPA #### [facility] [address] [place] [address] Dr. Ayden Cam MCV (RBC) [Entitic vol] 89.8 fL Normal 81.0-99.0 [facility] Comment on above: Performed By: #### L IPA #### [facility] [address] [place] [address] Dr. Ayden Cam MONO # 0.6 103/ul Normal 0.3-0.8 [facility] Comment on above: Performed By: #### L IPA #### [facility] [address] [place] [address] Dr. Ayden Cam Monocytes/100 WBC (Bld) 10.1 % Normal 1.7-12.0 [facility] Comment on above: Performed By: #### L IPA #### [facility] [address] [place] [address] Dr. Ayden Cam NEUT # 3.2 103/ul Normal 1.4-6.5 [facility] Comment on above: Performed By: #### L IPA #### [facility] [address] [place] [address] Dr. Ayden Cam Neutrophils/100 WBC (Bld) 53.7 % Normal 43.0-75.0 [facility] Comment on above: Performed By: #### L IPA #### [facility] [address] [place] [address] Dr. Ayden Cam Platelet mean volume (Bld) [Entitic vol] 9.7 fL Normal 9.5-13.5 [facility] Comment on above: Performed By: #### L IPA #### [facility] [address] [place] [address] Dr. Ayden Cam PLT 168 103/ul Normal 150-450 [facility] Comment on above: Performed By: #### L IPA #### [facility] [address] [place] [address] Dr. Ayden Cam RBC 4.33 106/ul Normal 4.20-5.40 [facility] Comment on above: Performed By: #### L IPA #### [facility] [address] [place] [address] Dr. Ayden Cam WBC 6.0 103/ul Normal 4.0-11.0 [facility] Comment on above: Performed By: #### L IPA #### [facility] [address] [place] [address] Dr. Ayden Cam LIPASEon 10-05-2022 Lipase [Catalytic activity/Vol] 151.0 U/L Normal 73.0-393.0 [facility] Comment on above: Performed By: #### L IPA #### [facility] [address] [place] [address] Dr. Ayden Cam LIVER PROFILEon 10-05-2022 Albumin [Mass/Vol] 3.2 g/dL Critically low 3.4-5.0 [facility] Comment on above: Performed By: #### L ACT #### [facility] [address] [place] [address] Dr. Ayden Cam Albumin/Globulin [Mass ratio] 1.1 {ratio} Normal [facility] Comment on above: Performed By: #### L ACT #### [facility] [address] [place] [address] Dr. Ayden Cam ALP [Catalytic activity/Vol] 82 U/L Normal 46-116 [facility] Comment on above: Performed By: #### L ACT #### [facility] [address] [place] [address] Dr. Ayden Cam ALT [Catalytic activity/Vol] 70 U/L Critically high 14-59 [facility] Comment on above: Performed By: #### L ACT #### [facility] [address] [place] [address] Dr. Ayden Cam AST [Catalytic activity/Vol] 36 U/L Normal 15-37 [facility] Comment on above: Performed By: #### L ACT #### [facility] [address] [place] [address] Dr. Ayden Cam BILI, CONJUGATED 0.1 mg/dL Normal 0.0-0.2 [facility] Comment on above: Performed By: #### L ACT #### [facility] [address] [place] [address] Dr. Ayden Cam Bilirubin [Mass/Vol] 0.3 mg/dL Normal 0.2-1.0 [facility] Comment on above: Performed By: #### L ACT #### [facility] [address] [place] [address] Dr. Ayden Cam Globulin (S) [Mass/Vol] 3.0 g/dL Normal [facility] Comment on above: Performed By: #### L ACT #### [facility] [address] [place] [address] Dr. Ayden Cam Protein [Mass/Vol] 6.2 g/dL Critically low 6.4-8.2 [facility] Comment on above: Performed By: #### L ACT #### [facility] [address] [place] [address] Dr. Ayden Cam PROF CHEM 8 (BAS METB)on Anion gap [Moles/Vol] 9.5 mmol/L Normal [facility] Comment on above: Performed By: #### B MP #### [facility] [address] [place] [address] Dr. Ayden Cam Calcium [Mass/Vol] 8.9 mg/dL Normal 8.5-10.1 [facility] Comment on above: Performed By: #### B MP #### [facility] [address] [address] [address] Ayden Cam Chloride [Moles/Vol] 105 mmol/L Normal 98-107 [facility] Comment on above: Performed By: #### B MP #### [facility] [address] [place] [address] Dr. Ayden Cam CO2 [Moles/Vol] 29.6 mmol/L Normal 21.0-32.0 [facility] Comment on above: Performed By: #### B MP #### [facility] [address] [place] [address] Dr. Ayden Cam Creatinine [Mass/Vol] 0.56 mg/dL Normal 0.55-1.02 [facility] Comment on above: Performed By: #### B MP #### [facility] [address] [place] [address] Dr. Ayden Cam EGFR-AF SCOTTISH >60 Normal >=[address] [facility] Comment on above: Performed By: #### B MP #### [facility] [address] [place] [address] Dr. Ayden Cam EGFR-NON AF SCOTTISH >60 Normal >=60 [facility] Comment on above: Performed By: #### B MP #### [facility] [address] [place] [address] Dr. Ayden Cam Glucose [Mass/Vol] 88 mg/dL Normal 74-106 [facility] Comment on above: Performed By: #### B MP #### [facility] [address] [place] [address] Dr. Ayden Cam Potassium [Moles/Vol] 4.1 mmol/L Normal 3.5-5.1 [facility] Comment on above: Performed By: #### B MP #### [facility] [address] [place], [place] [address] Dr. Ayden Cam Sodium [Moles/Vol] 140 mmol/L Normal 136-145 [facility] Comment on above: Performed By: #### B MP #### [facility] [address] [place], [place] [address] Dr. Ayden Cam Urea nitrogen [Mass/Vol] 15.0 mg/dL Normal 7.0-18.0 [facility] Comment on above: Performed By: #### B MP #### [facility] [address] [place], [place] [address] Dr. Ayden Cam Urea nitrogen/Creatinine [Mass ratio] 26.8 mg/mg Normal [facility] Comment on above: Performed By: #### B MP #### [facility] [address] [place], [place] [address] Dr. Ayden Cam US Jhony 10-05-2022 US [...] RONAN TORIBIO Date: 2022-10-05 09:52 Normal [facility] XR KUB 1 VIEWon 10-05-2022 XR KUB [...] RONAN TORIBIO Date: 2022-10-05 09:55 Normal [facility] AMYLASEon 10-04-2022 Amylase [Catalytic activity/Vol] 124 U/L Critically high 25-115 [facility] Comment on above: Performed By: #### L IPA, COLE, CMP #### [facility] [address] [place] [address] Dr. Ayden Cam CBC AUTO DIFFon 10-04-2022 BASO # 0.0 103/ul Normal 0.0-0.1 [facility] Comment on above: Performed By: #### L IPA #### [facility] [address] [place] [address] Dr. Ayden Cam Basophils/100 WBC (Bld) 0.3 % Normal 0.2-2.0 [facility] Comment on above: Performed By: #### L IPA #### [facility] [address] [place] [address] Dr. Ayden Cam EO # 0.2 103/ul Normal 0.0-0.7 [facility] Comment on above: Performed By: #### L IPA #### [facility] [address] [place] [address] Dr. Ayden Cam Eosinophils/100 WBC (Bld) 2.9 % Normal 0.9-7.0 [facility] Comment on above: Performed By: #### L IPA #### [facility] [address] [place] [address] Dr. Ayden Cam Erythrocyte distribution width (RBC) [Ratio] 12.3 % Normal 11.0-15.0 [facility] Comment on above: Performed By: #### L IPA #### [facility] [address] [place] [address] Dr. Ayden Cam Hematocrit (Bld) [Volume fraction] 42.0 % Normal 36.0-48.0 [facility] Comment on above: Performed By: #### L IPA #### [facility] [address] [place] [address] Dr. Ayden Cam Hemoglobin (Bld) [Mass/Vol] 14.3 g/dL Normal 12.0-16.0 [facility] Comment on above: Performed By: #### L IPA #### [facility] [address] [place] [address] Dr. Ayden Cam IG # 0.02 10e3/ul Normal 0.00-0.03 [facility] Comment on above: Performed By: #### L IPA #### [facility] [address] [place] [address] Dr. Ayden Cam IG % 0.3 % Normal 0.0-0.5 [facility] Comment on above: Performed By: #### L IPA #### [facility] [address] [place] [address] Dr. Ayden Cam LYMPH # 1.7 103/ul Normal 1.2-3.8 [facility] Comment on above: Performed By: #### L IPA #### [facility] [address] [place] [address] Dr. Ayden Cam Lymphocytes/100 WBC (Bld) 22.5 % Normal 20.5-60.0 [facility] Comment on above: Performed By: #### L IPA #### [facility] [address] [place] [address] Dr. Ayden Cam MANUAL DIFF REQ NO Normal [facility] Comment on above: Performed By: #### L IPA #### [facility] [address] [place] [address] Dr. Ayden Cam MCH (RBC) [Entitic mass] 30.1 pg Normal 26.7-34.0 [facility] Comment on above: Performed By: #### L IPA #### [facility] [address] [place] [address] Dr. Ayden Cam MCHC (RBC) [Mass/Vol] 34.0 g/dL Normal 29.9-35.2 [facility] Comment on above: Performed By: #### L IPA #### [facility] [address] [address] [address] Ayden Cam MCV (RBC) [Entitic vol] 88.4 fL Normal 81.0-99.0 [facility] Comment on above: Performed By: #### L IPA #### [facility] [address] [address] [address] Ayden Cam MONO # 0.5 103/ul Normal 0.3-0.8 [facility] Comment on above: Performed By: #### L IPA #### [facility] [address] [address] [address] Ayden Cam Monocytes/100 WBC (Bld) 6.0 % Normal 1.7-12.0 [facility] Comment on above: Performed By: #### L IPA #### [facility] [address] [place] [address] Dr. Ayden Cam NEUT # 5.2 103/ul Normal 1.4-6.5 [facility] Comment on above: Performed By: #### L IPA #### [facility] [address] [place] [address] Dr. Ayden Cam Neutrophils/100 WBC (Bld) 68.0 % Normal 43.0-75.0 [facility] Comment on above: Performed By: #### L IPA #### [facility] [address] [address] [address] Ayden Cam Platelet mean volume (Bld) [Entitic vol] 9.6 fL Normal 9.5-13.5 [facility] Comment on above: Performed By: #### L IPA #### [facility] [address] [address] [address] Ayden Cam PLT 183 103/ul Normal 150-450 [facility] Comment on above: Performed By: #### L IPA #### [facility] [address] [address] [address] Ayden Cam RBC 4.75 106/ul Normal 4.20-5.40 [facility] Comment on above: Performed By: #### L IPA #### [facility] [address] [place] [address] Dr. Ayden Cam WBC 7.6 103/ul Normal 4.0-11.0 [facility] Comment on above: Performed By: #### L IPA #### [facility] [address] [place] [address] Dr. Ayden Cam Covid-19 PCR [facility]on SARS-CoV-2 (COVID-19) RNA LOWELL+probe Ql (Unsp spec) Not detected Normal NOT DETECTED [facility] Comment on above: Result Comment: When diagnostic [...] for this test is supported by the Underwriting Specialist of Health and Human Service's declaration that [...] used). Performed By: #### L IPA #### [facility] [address] [place] [address] Dr. Ayden Cam ER URINE PROFILEon 3 Bilirubin Ql (U) Negative Normal NEGATIVE [facility] Comment on above: Performed By: #### L ACT #### [facility] [address] [place] [address] Dr. Ayden Cam Clarity (U) CLEAR Normal CLEAR [facility] Comment on above: Performed By: #### L ACT #### [facility] [address] [place] [address] Dr. Ayden Cam Color (U) LT. YELLOW Normal YELLOW [facility] Comment on above: Performed By: #### L ACT #### [facility] [address] [address] [address] Ayden SANTANA A micrscopic examination will be performed if indicated. Normal [facility] Comment on above: Performed By: #### L ACT #### [facility] [address] [address] [address] Ayden Cam Glucose Ql (U) Negative Normal NEGATIVE [facility] Comment on above: Performed By: #### L ACT #### [facility] [address] [address] [address] Ayden Cam Hemoglobin Ql (U) Negative Normal NEGATIVE [facility] Comment on above: Performed By: #### L ACT #### [facility] [address] [address] [address] Ayden Cam Ketones Ql (U) Negative Normal NEGATIVE [facility] Comment on above: Performed By: #### L ACT #### [facility] [address] [address] [address] Ayden Cam LEUKOCYTES Negative Normal NEGATIVE [facility] Comment on above: Performed By: #### L ACT #### [facility] [address] [address] [address] Ayden Cam Nitrite Ql (U) Negative Normal NEGATIVE [facility] Comment on above: Performed By: #### L ACT #### [facility] [address] [place] [address] Dr. Ayden Cam pH (U) 8.5 [pH] Normal 5-9 [facility] Comment on above: Performed By: #### L ACT #### [facility] [address] [address] [address] Ayden Cam SPEC GRAVITY 1.015 Normal 1.005-<=1.02 5 [facility] Comment on above: Performed By: #### L ACT #### [facility] [address] [place] [address] Dr. Ayden Cam UA PROTEIN Negative Normal NEGATIVE/ TRACE [facility] Comment on above: Performed By: #### L ACT #### [facility] [address] [address] [address] Ayden Cam UR MICRO IND NOT INDICATED Normal [facility] Comment on above: Performed By: #### L ACT #### [facility] [address] [place] [address] Dr. Ayden Cam Urobilinogen Qn (U) 0.2 {Peggy'U}/dL Normal 0.2 - 1. 0 [facility] Comment on above: Performed By: #### L ACT #### [facility] [address] [place] [address] Dr. Ayden Cam LACTATE/LACTIC ACIDon 2022 Lactate [Moles/Vol] 0.8 mmol/L Normal 0.4-1.9 [facility] Comment on above: Performed By: #### L ACT #### [facility] [address] [place] [address] Dr. Ayden Cam LIPASEon 10-04-2022 Lipase [Catalytic activity/Vol] 170.0 U/L Normal 73.0-393.0 [facility] Comment on above: Performed By: #### L ACT #### [facility] [address] [place] [address] Dr. Ayden Cam PROF 14(COMP METB)on 023 Albumin [Mass/Vol] 3.8 g/dL Normal 3.4-5.0 [facility] Comment on above: Performed By: #### L ACT #### [facility] [address] [place] [address] Dr. Ayden Cam Albumin/Globulin [Mass ratio] 1.1 {ratio} Normal [facility] Comment on above: Performed By: #### L ACT #### [facility] [address] [place] [address] Dr. Ayden Cam ALP [Catalytic activity/Vol] 101 U/L Normal 46-116 [facility] Comment on above: Performed By: #### L ACT #### [facility] [address] [place] [address] Dr. Ayden Cam ALT [Catalytic activity/Vol] 94 U/L Critically high 14-59 [facility] Comment on above: Performed By: #### L ACT #### [facility] [address] [address] [address] Ayden Cam Anion gap [Moles/Vol] 11.1 mmol/L Normal [facility] Comment on above: Performed By: #### L ACT #### [facility] [address] [address] [address] Ayden Cam AST [Catalytic activity/Vol] 59 U/L Critically high 15-37 [facility] Comment on above: Performed By: #### L ACT #### [facility] [address] [address] [address] Ayden aCm Bilirubin [Mass/Vol] 0.3 mg/dL Normal 0.2-1.0 [facility] Comment on above: Performed By: #### L ACT #### [facility] [address] [address] [address] Ayden Cam Calcium [Mass/Vol] 9.5 mg/dL Normal 8.5-10.1 [facility] Comment on above: Performed By: #### L ACT #### [facility] [address] [address] [address] Ayden Cam Chloride [Moles/Vol] 99 mmol/L Normal 98-107 [facility] Comment on above: Performed By: #### L ACT #### [facility] [address] [address] [address] Ayden Cam CO2 [Moles/Vol] 29.7 mmol/L Normal 21.0-32.0 [facility] Comment on above: Performed By: #### L ACT #### [facility] [address] [address] [address] Ayden Cam Creatinine [Mass/Vol] 0.61 mg/dL Normal 0.55-1.02 [facility] Comment on above: Performed By: #### L ACT #### [facility] [address] [address] [address] Ayden Cam EGFR-AF SCOTTISH >60 Normal >=[address] [facility] Comment on above: Performed By: #### L ACT #### [facility] [address] [place] [address] Dr. Ayden Cam EGFR-NON AF SCOTTISH >60 Normal >=60 [facility] Comment on above: Performed By: #### L ACT #### [facility] [address] [address] [address] Ayden Cam Globulin (S) [Mass/Vol] 3.4 g/dL Normal [facility] Comment on above: Performed By: #### L ACT #### [facility] [address] [address] [address] Ayden Cam Glucose [Mass/Vol] 111 mg/dL Critically high 74-106 [facility] Comment on above: Performed By: #### L ACT #### [facility] [address] [place] [address] Dr. Ayden Cam Potassium [Moles/Vol] 3.8 mmol/L Normal 3.5-5.1 [facility] Comment on above: Performed By: #### L ACT #### [facility] [address] [place] [address] Dr. Ayden Cam Protein [Mass/Vol] 7.2 g/dL Normal 6.4-8.2 [facility] Comment on above: Performed By: #### L ACT #### [facility] [address] [place] [address] Dr. Ayden Cam Sodium [Moles/Vol] 136 mmol/L Normal 136-145 [facility] Comment on above: Performed By: #### L ACT #### [facility] [address] [place] [address] Dr. Ayden Cam Urea nitrogen [Mass/Vol] 23.0 mg/dL Critically high 7.0-18.0 [facility] Comment on above: Performed By: #### L ACT #### [facility] [address] [place] [address] Dr. Ayden Cam Urea nitrogen/Creatinine [Mass ratio] 37.7 mg/mg Normal [facility] Comment on above: Performed By: #### L ACT #### [facility] [address] [place] [address] Dr. Ayden Cam TROPONIN, HIGH SENSITIVITYon 10-04-2022 HSTROP 8.9 pg/mL Normal 4.0-51.3 [facility] Comment on above: Result Comment: CUT- OFF POINTS HAVE BEEN ESTABLISHED BASED ON THE FOURTH UNIVERSAL DEFINITIONS OF MYOCARDIAL INFARCTION. THE UPPER REFERENCE LIMIT (URL) OF TROPONIN, DEFINED THE 99TH PERCENTILE OF cTnI DISTRIBUTION IN A REFERENCE POPULATION, HAS BEEN CONFIRMED THE DECISION THRESHOLD FOR [place] DIAGNOSIS. Performed By: #### L ACT #### [facility] [address] [place] [address] Dr. Ayden Cam LIPID PROFILEon 09-19-2022 CHOL-HDL RATIO NORM SEE BELOW Normal [facility] Comment on above: Result Comment: 3.3 - 4.4 LOW RISK 4.4 - 7.1 AVERAGE RISK 7.1 - 11.0 MODERATE RISK >11.0 HIGH RISK Performed By: #### L IPA #### [facility] [address] [place] [address] Dr. Ayden Cam Cholesterol [Mass/Vol] 116 mg/dL Normal <=200 [facility] Comment on above: Performed By: #### L IPA #### [facility] [address] [place] [address] Dr. Ayden Cam Cholesterol in HDL [Mass/Vol] 59 mg/dL Normal 40-60 [facility] Comment on above: Performed By: #### L IPA #### [facility] [address] [place] [address] Dr. Adyen Cam Cholesterol in LDL [Mass/Vol] 34.0 mg/dL Normal [facility] Comment on above: Performed By: #### L IPA #### [facility] [address] [place] [address] Dr. yAden Cam Cholesterol.total/Chol esterol in HDL [Mass ratio] 2.0 {ratio} Normal [facility] Comment on above: Performed By: #### L IPA #### [facility] [address] [place] [address] Dr. Ayden Cam HDL NORMAL > or = 60 mg/dl - LOW CARDIOVASCULAR RISK <40 mg/dl - HIGH CARDIOVASCULAR RISK Normal [facility] Comment on above: Performed By: #### L IPA #### [facility] [address] [address] [address] Ayden Cam LDL CALC NORMAL SEE BELOW Normal [facility] Comment on above: Result Comment: <100 mg/dl OPTIMAL 100 - 129 mg/dl NEAR OR ABOVE OPTIMAL 130 - 159 mg/dl BORDERLINE HIGH 160 - 189 mg/dl HIGH >190 mg/dl VERY HIGH Performed By: #### L IPA #### [facility] [address] [address] [address] Ayden Cam Triglyceride [Mass/Vol] 115 mg/dL Normal <=150 [facility] Comment on above: Performed By: #### L IPA #### [facility] [address] [address] [address] Ayden Cam VLDL CALC 23.0 mg/dL Normal [facility] Comment on above: Performed By: #### L IPA #### [facility] [address] [place] [address] Dr. Ayden Cam VITAMIN D 25 [place]on 09-19-2022 VIT D 25-OH 89.3 ng/mL Normal [facility] Comment on above: Performed By: #### V ITAD #### [facility] [address] [address] [address] Ayden Cam VIT D RANGES SEE BELOW Normal [facility] Comment on above: Result Comment: <20 ng/mL Vit D deficient 20 - <30 ng/mL Vit D insufficient 30 - 100 ng/mL Vit D sufficient >100 ng/mL Potential Toxicity Performed By: #### V ITAD #### [facility] [address] [address] [address] Ayden Cam Office Visit (Cardiology)on 08-15-2022 Follow-up visit Diagnoses/Problems Assessed Atherosclerosis of coronary artery of [place] heart without angina pectoris (414.01) (I25.10) History of coronary artery bypass graft (V45.81) (Z95.1) Ischemic cardiomyopathy (414.8) (I25.5) Hyperlipidemia (272.4) (E78.5) Essential hypertension, benign (401.1) (I10) Never a smoker Overweight with body mass index (BMI) of 26 to 26.9 in adult (278.02,V85.22) (E66.3,Z68.26) Paroxysmal SVT (supraventricular tachycardia) (427.0) (I47.1) Orders Atherosclerosis of coronary artery of [place] heart without angina pectoris, Essential hypertension, benign, Hyperlipidemia Basic Metabolic Panel; Status:Active - Retrospective Authorization; Requested for:[id number]; Lipid Panel; Status:Active - Retrospective Authorization; Requested for:[id number]; Overweight with body mass index (BMI) of 26 to 26.9 in adult Healthy Weight Tips; Status:Complete - Retrospective Authorization; Done: [id number] Some eating tips that can help you lose weight.; Status:Complete - Retrospective Authorization; Done: [id number] SocHx: Never a smoker Tobacco Use Screening; Status:Complete; Done: [id number] Patient Instructions Please bring all medicines, vitamins, [...] She has a history of prior inferior [place], prior PCI with subsequent three-vessel CABG and [...] CHEST PAIN.CALL 911 IF PAIN PERSISTS. Nyamyc [id number] UNIT/GM External Powderapply topically to affected area [...] no s (more content not included)... Normal [facility] Tobacco Screening.on Adult depression screening assessment No [facility] Gee 250 DO Work Phone: Fall risk assessment a) No falls within the last year [facility] Gee 250 DO Work Phone: Tobacco use status [facility] b) No [facility] Gee 250 DO Work Phone: MRI [...] by Wilder Arango on 08/01/2022 1102 Normal [facility] [employer] Tobacco Screening.on Tobacco use status [facility] b) No [facility] Gee 250 DO Work Phone: Vital Signs Date Time Vital Sign Value Performing Clinician Facility 08-14-2023 15:29-0500 Body height 161.3 cm Ramandeep Garibay DO Work Phone: [facility] 08-14-2023 15:29-0500 Body mass index (BMI) [Ratio] 28.07 kg/m2 Ramandeep Garibay DO Work Phone: [facility] 08-14-2023 15:29-0500 Body weight 73.03 kg Ramandeep Garibay DO Work Phone: [facility] 08-14-2023 15:29-0500 Diastolic blood pressure 80 mm[Hg] Ramandeep Garibay DO Work Phone: [facility] 08-14-2023 15:29-0500 Heart rate 56 /min Ramandeep Garibay DO Work Phone: [facility] 08-14-2023 15:29-0500 Systolic blood pressure 138 mm[Hg] Ramandeep Garibay DO Work Phone: [facility] 06-18-2023 15:15-0400 Diastolic blood pressure 78 mm[Hg] Gaby Tello DO Work Phone: [facility] 06-18-2023 15:15-0400 Heart rate 70 /min Gaby Novoag DO Work Phone: [facility] 06-18-2023 15:15-0400 Respiratory rate 18 /min Gaby Novoag DO Work Phone: [facility] 06-18-2023 15:15-0400 SaO2% (BldA) [Mass fraction] 96 % Gaby Novoag DO Work Phone: [facility] 06-18-2023 15:15-0400 Systolic blood pressure 173 mm[Hg] Gaby Jenkinsy Tello DO Work Phone: [facility] 06-18-2023 14:36-0400 Body temperature 97 [degF] Gaby Jenkinsy Tello DO Work Phone: [facility] 06-18-2023 13:30-0400 Body height 160 cm [facility]ello DO [facility] 06-18-2023 13:30-0400 Body mass index (BMI) [Ratio] 27.03 kg/m2 Gaby Tello DO [facility] 06-18-2023 13:30-0400 Body weight 69.22 kg Gaby Tello DO [facility] Phone[facility] 11-02-2022 15:02-0500 Diastolic blood pressure 84 mm[Hg] MD Ashley Dejesus Work Phone: [facility] [place] 11-02-2022 15:02-0500 Heart rate 78 /min MD Ashley Dejesus Work Phone: [facility] [place] 11-02-2022 15:02-0500 Respiratory rate 18 /min MD Ashley Dejesus Work Phone: [facility] 11-02-2022 15:02-0500 SaO2% (BldA) [Mass fraction] 100 % MD Ashley Dejesus Work Phone: [facility] 11-02-2022 15:02-0500 Systolic blood pressure 161 mm[Hg] MD Ashley Dejesus Work Phone: [facility] [place] 11-02-2022 13:20-0500 Body height 160.02 cm MD Ashley Dejesus Work Phone: [facility] 11-02-2022 13:20-0500 Body temperature 98.2 [degF] MD Ashley Dejesus Work Phone: [facility] 11-02-2022 13:20-0500 Body weight 60.78 kg MD Ashley Dejesus Work Phone: [facility] 11-01-2022 13:26-0500 Diastolic blood pressure 61 mm[Hg] MD Ashley Dejesus Work Phone: [facility] 11-01-2022 13:26-0500 Heart rate 59 /min MD Ashley Dejesus Work Phone: [facility] [place] 11-01-2022 13:26-0500 Respiratory rate 20 /min MD Ashley Dejesus Work Phone: [facility] 11-01-2022 13:26-0500 SaO2% (BldA) [Mass fraction] 99 % MD Ashley Dejesus Work Phone: [facility] [place] 11-01-2022 13:26-0500 Systolic blood pressure 124 mm[Hg] MD Ashley Dejesus Work Phone: [facility] 11-01-2022 10:53-0500 Body height 160.02 cm MD Ashley Dejesus Work Phone: [facility] 11-01-2022 10:53-0500 Body temperature 97.7 [degF] MD Ashley Dejesus Work Phone: [facility] 11-01-2022 10:53-0500 Body weight 61.68 kg MD Ashley Dejesus Work Phone: [facility] 10-24-2022 15:45-0500 Body height 159.38 cm Imad Asaad Other [employer] [facility] Other 10-24-2022 15:45-0500 Body mass index (BMI) [Ratio] 24.28 kg/m2 Imad Asaad Other [employer] Other 10-24-2022 15:45-0500 Body weight 61.69 kg Imad Asaad Other [employer] Other 10-24-2022 15:45-0500 Diastolic blood pressure 94 mm[Hg] Imad Asaad Other [employer] Other 10-24-2022 15:45-0500 Systolic blood pressure 133 mm[Hg] Imad Asaad Other [facility] [employer] Other 09-19-2022 00:00-0500 34 1 Ashley M Hoy Work Phone: [facility] [facility] DO Work Phone: Comment on above: [facility] 08-15-2022 15:23-0500 Body height 160.02 cm Ashley M Hoy Work Phone: [facility] DO Work Phone: 08-15-2022 15:23-0500 Body mass index (BMI) [Ratio] 26.22 kg/m2 Ashley M Hoy Work Phone: [facility] DO Work Phone: 08-15-2022 15:23-0500 Body surface area Derived from formula 1.7 m2 Ashley M Hoy Work Phone: [facility] DO Work Phone: 08-15-2022 15:23-0500 Body weight 67.13 kg Ashley M Hoy Work Phone: [facility] DO Work Phone: 08-15-2022 15:23-0500 Diastolic blood pressure 82 mm[Hg] Ashley M Hoy Work Phone: [facility] [facility] DO Work Phone: 08-15-2022 15:23-0500 Heart rate 80 /min Ashley M Hoy Work Phone: [facility] [facility] DO Work Phone: 08-15-2022 15:23-0500 Systolic blood pressure 132 mm[Hg] Ashley M Hoy Work Phone: [facility] DO Work Phone: 06-02-2022 08:12-0400 Blood Pressure Location Santiago CARRILLO [facility] 06-02-2022 08:12-0400 Diastolic blood pressure 86 mm[Hg] Santiago CARRILLO [facility] 06-02-2022 08:12-0400 Heart rate 60 /min Santiago CARRILLO [facility] 06-02-2022 08:12-0400 Respiratory rate 16 /min Santiago CARRILLO [facility] 06-02-2022 08:12-0400 Systolic blood pressure 144 mm[Hg] Santiago CARRILLO [facility] 08-17-2021 09:47-0500 Body height 160.02 cm Ashley M Hoy Work Phone: [facility] [facility] DO Work Phone: 08-17-2021 09:47-0500 Body mass index (BMI) [Ratio] 25.01 kg/m2 Ashley M Hoy Work Phone: [facility] [facility] DO Work Phone: 08-17-2021 09:47-0500 Body surface area Derived from formula 1.67 m2 Ashley M Hoy Work Phone: [facility] DO Work Phone: 08-17-2021 09:47-0500 Body weight 64.05 kg Ashley M Hoy Work Phone: [facility] [facility] DO Work Phone: 08-17-2021 09:47-0500 Diastolic blood pressure 86 mm[Hg] Ashley M Hoy Work Phone: [facility] DO Work Phone: 08-17-2021 09:47-0500 Heart rate 72 /min Ashley Dejesus Work Phone: [facility] [facility] DO Work Phone: 08-17-2021 09:47-0500 Systolic blood pressure 134 mm[Hg] Ashley Dejesus Work Phone: [facility] [facility] DO Work Phone: Encounters Encounter Date Encounter Type Care Provider Facility Start: 02-13-2024 ambulatory JENNIFER Perez ty:[facility] [place] Start: 01-17-2024 End: 01-17-2024 ambulatory [facility] Start: 09-13-2023 End: 09-13-2023 ambulatory ALINA JAVIER Not Available Start: 08-14-2023 End: 08-14-2023 ambulatory [facility] Start: 08-14-2023 End: 08-14-2023 Office outpatient visit 15 minutes [facility] DO Work Phone: [facility] Comment on above: Atherosclerosis of c oronary artery of [place] heart without angina pectoris, unspecified vessel or lesion type; History of coronary artery bypass graft; Ischemic cardiomyopathy; Essential hypertension, benign Start: 06-18-2023 End: 06-18-2023 ambulatory GABYLEN ENGEL [facility] Start: 06-18-2023 End: 06-18-2023 [facility] Work Phone: [facility] [place] Comment on above: Post-menopausal blee ding; Inclusion cyst Start: 05-24-2023 Rx Renewal Ashley Dejesus Work Phone: [facility] [facility] DO Work Phone: Start: 05-17-2023 Patient encounter procedure Ashley Dejesus Work Phone: [facility] [facility] DO Work Phone: Start: 05-15-2023 ambulatory ASHLEY DEJESUS [facility] Start: 12-12-2022 End: 12-12-2022 ambulatory Imad Asaad Facility:[facility] Start: 12-12-2022 End: 12-12-2022 ambulatory MD Ashley Dejesus Work Phone: [facility] Work Phone: Start: 12-12-2022 End: 12-12-2022 Patient encounter procedure MD Ashley Dejesus Work Phone: [facility] Work Phone: Start: 11-20-2022 End: 11-20-2022 ambulatory Imad Asaad Other [facility] [employer] Other Start: 11-20-2022 Telephone encounter Imad Asaad [facility] Start: 11-10-2022 End: 11-10-2022 ambulatory Imad Asaad Facility:[facility] Start: 11-10-2022 End: 11-10-2022 Patient encounter procedure MD Ashley Dejesus Work Phone: [facility] Work Phone: Start: 11-02-2022 End: 11-02-2022 ambulatory Imad Asaad Facility:[facility] Start: 11-02-2022 End: 11-02-2022 Admission to same day surgery center MD Ashley Dejesus Work Phone: [facility] Work Phone: Start: 11-02-2022 End: 11-02-2022 ambulatory MD Ashley Dejesus Work Phone: [facility] Work Phone: Start: 11-01-2022 Telephone encounter Imad Asaad [facility] Start: 11-01-2022 End: 11-01-2022 ambulatory Imad Asaad Facility:[facility] Start: 11-01-2022 End: 11-01-2022 Admission to same day surgery center MD Ashley Dejesus Work Phone: [facility] Work Phone: Start: 11-01-2022 End: 11-01-2022 ambulatory MD Ashley Dejesus Work Phone: [facility] Work Phone: Start: 10-24-2022 End: 10-24-2022 ambulatory Evert Bruno Other [facility] [employer] Other Start: 10-24-2022 [facility] visit new patient Evert Bruno [facility] Start: 10-16-2022 End: 10-17-[address] ASHLEY DEJESUS Facility:[facility] Start: 10-09-2022 End: 10-10-[address] ASHLEY DEJESUS Facility:[facility] Start: 10-05-2022 Rx Renewal Ashley Dejesus Work Phone: [facility] [facility] DO Work Phone: Start: 10-04-2022 End: 10-06-[address] ASHLEY DEJESUS Facility:[facility] Start: 09-19-2022 End: 09-20-[address] DOCTOR PATEL Facility:[facility] Start: 08-15-2022 Office outpatient vi sit 15 minutes Ashley Dejesus Work Phone: [facility] [facility] DO Work Phone: Start: 08-15-2022 Patient encounter procedure Ashley Dejesus Work Phone: [facility] [facility] DO Work Phone: Start: 06-02-2022 End: 06-02-2022 Patient encounter procedure Santiago CARRILLO [facility] Start: 05-31-2022 Rx Renewal Ashley Dejesus Work Phone: [facility] [facility] DO Work Phone: Start: 02-07-2022 End: 02-07-2022 Patient encounter procedure Ashley Dejesus MD [facility] Phone: [facility] Start: 02-07-2022 End: 02-07-2022 Subsequent hospital visit by physician Ashley Dejesus MD Work Phone: [facility] Comment on above: Women's annual routi ne gynecological examination Start: 11-21-2021 Rx Renewal Ashley Tyree Anjelica Work Phone: [facility] DO Work Phone: Start: 08-17-2021 Office outpatient vi sit 15 minutes Ashley Tyree Anjelica Work Phone: [facility] [facility] DO Work Phone: Start: 08-19-2019 End: [...] Work Phone: Start: 11-02-2022 Colonoscopy MD Ashley Dejesus Work Phone: Start: 11-01-2022 Colonoscopy MD Ashley [...] 02-07-2027 Screening for malignant neoplasm of cervix [facility] Start: 02-07-2025 Screening for malignant neoplasm of cervix Pap smear [facility] Start: 08-19-2024 Screening for malignant neoplasm of cervix [employer] Start: 08-13-2024 End: 08-13-2024 Patient encounter procedure 08/13/2024 11:30 AM EST Office Visit [address] [address] Ramandeep Garibay DO [address] [facility] [address] [place] [address] [facility] Start: 02-14-2024 Depression Screen Depression Screen [facility] Start: 02-12-2024 End: 08-14-2024 Alanine aminotransferase [Enzymatic activity/volume] in Serum or Plasma by With P-5'-P Alanine Aminotransferase Lab Routine History of coronary artery bypass graft Ischemic cardiomyopathy Expected: 02/12/2024 (Approximate), Expires: 08/14/2024 [facility] Work Phone: Comment on above: Expected: 02/12/2024 (Approximate), Expi res: 08/14/2024 Start: 02-12-2024 End: 08-14-2024 Aspartate aminotransferase [Enzymatic activity/volume] in Serum or Plasma by With P-5'-P Aspartate Aminotransferase Lab Routine Atherosclerosis of coronary artery of [place] heart without angina pectoris, unspecified vessel or lesion type Ischemic cardiomyopathy Expected: 02/12/2024 (Approximate), Expires: 08/14/2024 [facility] Work Phone: Comment on above: Expected: 02/12/2024 (Approximate), Expi res: 08/14/2024 Start: 02-12-2024 End: 08-14-2024 Lipid 1996 panel - Serum or Plasma Lipid Panel Lab Routine Atherosclerosis of coronary artery of [place] heart without angina pectoris, unspecified vessel or lesion type Expected: 02/12/2024 (Approximate), Expires: 08/14/2024 [facility] Service Area Work Phone: Comment on above: Expected: 02/12/2024 (Approximate), Expi res: 08/14/2024 Start: 08-14-2023 FUV, Provider: Ramandeep Garibay, Status: Pen, Time: 3:00 PM FUV, Provider: Ramandeep Garibay, Status: Julio, Time: 3:00 PM -[facility] [facility] DO Work Phone: Start: 07-28-2023 Screening for malignant neoplasm of breast Breast cancer screen [facility] Start: 07-24-2023 Screening for malignant neoplasm of breast Mammogram [facility] Start: 07-03-2023 End: 07-03-2023 Patient encounter procedure 07/03/2023 4:45 PM EDT Office Visit [facility] [address] [place] [address] Gaby Chahal, DO [address] [place] [address] post-op BA 05/16 [facility] Comment on above: post-op BA 05/16 Start: 06-18-2023 End: 06-18-2023 Hysteroscopy bx endometrium&/polypc w/wo d&c DILATATION AND CURETTAGE HYSTEROSCOPY Post-menopausal bleeding Inclusion cyst 06/18/2023 2:[address] [facility] Start: 02-13-2023 End: 02-13-2023 Patient encounter procedure 02/13/2023 Office Visit Obstetrics and Gynecology Gaby Chahal, DO [address] [place] [address] [facility] Start: 12-12-2022 [facility] Start: 11-02-2022 [facility] Start: 11-01-2022 [facility] Start: 08-19-2022 Screening for malignant neoplasm of cervix Pap smear [facility] Start: 08-15-2022 FUV, Provider: Ramandeep Garibay, Status: Pen, Time: 3:00 PM FUV, Provider: Ramandeep Garibay, Status: Pen, Time: 3:00 PM [facility] 250 DO Work Phone: Start: 08-03-2022 Lipid panel Lipids [facility] Start: 09-26-2021 COVID-19 Vaccine (4 - Pfizer series) COVID-19 Vaccine (4 - Pfizer series) [facility] Start: 06-01-2019 Influenza vaccination Flu vaccine (#1) [place] Start: 05-09-2018 Pneumococcal Vaccine: Pediatrics (0 to 5 Years) and At-Risk Patients (6 to 64 Years) (2 - PCV) Pneumococcal Vaccine: Pediatrics (0 to 5 Years) and At-Risk Patients (6 to 64 Years) (2 - PCV) [facility] Start: 2014 Breast cancer screen Breast cancer screen [place], [place] Start: 2014 Colon cancer screen colonoscopy Colon cancer screen colonoscopy [place] Start: 2014 Shingles Vaccine (1 of 2) Shingles Vaccine (1 of 2) [facility] Start: 08-26-2009 MMR Vaccines (1 of 1 - Standard series) MMR Vaccines (1 of 1 - Standard series) [facility] Start: 2009 Screening for malignant neoplasm of colon [facility] Start: 1999 Diabetes screen Diabetes screen [facility] Start: 1986 DTaP/Tdap/Td Vaccines (1 - Tdap) DTaP/Tdap/Td Vaccines (1 - Tdap) [facility] Start: 1985 Cervical cancer screen Cervical cancer screen [place] Start: 1985 Screening for malignant neoplasm of cervix [facility] Start: 1983 DTaP/Tdap/Td vaccine (1 - Tdap) DTaP/Tdap/Td vaccine (1 - Tdap) [facility] Start: 1982 Diabetes mellitus screening Diabetes Screening [facility] Start: 1982 Hepatitis C screening [facility] Start: 1979 HIV screen HIV screen [place] Start: 1979 HIV screening HIV screen [facility] Start: 1976 Depression Screen Depression Screen [facility] Start: 1975 DTaP/Tdap/Td vaccine (1 - Tdap) DTaP/Tdap/Td vaccine (1 - Tdap) [place] Start: 1974 Lipid panel Lipids [facility] Start: 1974 Lipid screen Lipid screen [place] Start: 1964 Hepatitis B vaccine (1 of 3 - 3-dose series) Hepatitis B vaccine (1 of 3 - 3-dose series) [facility] [employer] Start: 1964 Hepatitis B Vaccines (1 of 3 - 3-dose series) Hepatitis B Vaccines (1 of 3 - 3-dose series) [facility] Start: 1964 Hepatitis C screen Hepatitis C screen [facility] [employer] Start: 1964 HIV screening HIV Screening [facility] Start: 1964 Lipid panel Lipid Panel [facility] Start: 1964 Screening for malignant neoplasm of colon [facility] Start: 1964 Yearly Adult Physical Yearly Adult Physical [facility] Actin smooth muscle IgG Ab [Units/volume] in Serum [facility] Alpha 1 antitrypsin [Mass/volume] in Serum or Plasma [facility] Alpha 1 antitrypsin phenotyping [Identifier] in Serum or Plasma by Immunofixation [facility] Ceruloplasmin [Mass/volume] in Serum or Plasma [facility] End: 08-19-2019 Cytopathology procedure, preparation of smear, genital source PAP SMEAR Lab Routine Well female exam with routine gynecological exam 1 Occurrences starting 08/19/2019 until 08/19/2019 [facility]: [facility] Occurrences starting 08/19/2019 until 08/19/2019 End: 02-07-2022 Cytopathology procedure, preparation of smear, genital source PAP SMEAR Lab Routine Women's annual routine gynecological examination 1 Occurrences starting 02/07/2022 until 02/07/2022 [employer] Work Phone: Comment on above: 1 Occurrences starting 02/07/2022 until 02/07/2022 Hepatitis A virus Ab [Presence] in Serum by Immunoassay [facility] Hepatitis B core ant ibody measurement [facility] Hepatitis B virus khanna rface Ab [Presence] in Serum [facility] Hepatitis B virus khanna rface Ag [Presence] in Serum or Plasma by Immunoassay [facility] Hepatitis C virus Ig G Ab [Presence] in Serum or Plasma by Immunoassay [facility] Homogenous nuclear A b pattern [Titer] in Serum [facility] IgG [Mass/volume] in Serum or Plasma [facility] End: 06-18-2023 INITIATE PACU OXYGEN THERAPY PROTOCOL Initiate PACU Oxygen Therapy Protocol Respiratory Care Routine Continuous until discontinued starting 06/18/2023 [facility] Comment on above: Continuous until discontinued starting 0 06/18/2023 Lipoprotein a [Moles/volume] in Serum or Plasma [facility] Mitochondria M2 IgG Ab [Units/volume] in Serum [facility] Nuclear Ab [Titer] i n Serum [facility] Oxygen therapy [Mini mum Data Set] Initiate Oxygen Therapy Protocol Respiratory Care Routine As Needed until discontinued starting 06/18/2023 [facility] Comment on above: As Needed until discontinued starting Oxygen therapy [Mini mum Data Set] Initiate Oxygen Therapy Protocol Respiratory Care Routine As Needed until discontinued starting 06/18/2023 [facility] Comment on above: As Needed until discontinued starting Patient Education Hemorrhoids (DC) [facility] Work Phone: End: 06-18-2023 , urine POCT , urine POCT Point of Care Testing Routine One Time for 1 Occurrences starting 06/18/2023 until 06/18/2023 [facility] Comment on above: One Time for 1 Occurrences starting 06/01 until 06/18/2023 Surgical Pathology Surgical Path ology Lab Routine Post-menopausal bleeding Inclusion cyst Release Upon Ordering for 1 Occurrences starting 06/18/2023 [facility] Comment on above: Release Upon Ordering for 1 Occurrences starting 06/18/2023 [facility] Immunizations Immunization Date Immunization Notes Care Provider Fa kris 06-16-2022 influenza, injectabl e, quadrivalent, preservative free Ashley Dejesus Work Phone: [facility] DO Work Phone: 06-16-2022 zoster vaccine recombinant Ashley Dejesus Work Phone: [facility] DO Work Phone: 08-01-2021 [employer] COVI D-19 Vacc 30 MCG/0.3ML Intramuscular Suspension Ashley Dejesus Work Phone: [facility] DO Work Phone: 06-30-2021 influenza virus vacc ine, unspecified formulation Ashley M Hoy Work Phone: [facility] 250 DO Work Phone: 06-03-2021 Influenza, injectabl e, Madin Afton Canine Kidney, preservative free, quadrivalent Ashley M Hoy Work Phone: [facility] 250 DO Work Phone: 01-29-2021 [employer] COVI D-19 Vacc 30 MCG/0.3ML Intramuscular Suspension Ashley M Hoy Work Phone: [facility] 250 DO Work Phone: 01-08-2021 Pf[employer] COVI D-19 Vacc 30 MCG/0.3ML Intramuscular Suspension Ashley M Hoy Work Phone: [facility] 250 DO Work Phone: 2020 influenza, injectabl e, quadrivalent, preservative free Ashley M Hoy Work Phone: [facility] [employer] DO Work Phone: 07-23-2018 influenza, injectabl e, quadrivalent, preservative free Ashley M Hoy Work Phone: [place] [address] DO Work Phone: 07-26-2017 Influenza, injectabl e, Madin Renetta Canine Kidney, preservative free, quadrivalent Ashley M Hoy Work Phone: [facility] 250 DO Work Phone: 05-09-2017 pneumococcal polysaccharide vaccine, 23 valent Sahley M Hoy Work Phone: [place] [address] DO Work Phone: 07-03-2015 influenza, seasonal, injectable, preservative free Ashley M Hoy Work Phone: [place] [address] DO Work Phone: 06-15-2014 influenza, seasonal, injectable Ashley Dejesus Work Phone: [facility] [employer] 250 DO Work Phone: 07-29-2009 novel influenza-H1N1 -09, preservative-free, injectable Ashley Dejesus Work Phone: [facility] [employer] 250 DO Work Phone: Payers Date Payer Category Payer Self-pay [id number] [phone] [id number] 2022 Unknown 2019 Unknown [employer] [place] [employer] BS [place] PPO [place] LOCAL xxxxxxxxxxxxxxx 2019-Present [address] [place] [address] xxxxxxxxxxxxxxx [id number] 1964 Unknown [id number] 1964 Unknown [id number] [id number] 1964 Unknown [id number] [id number] 1964 Unknown [id number] [id number] 1964 Unknown [id number] [id number] 1964 Unknown [id number] [id number] 1964 Unknown [id number] [id number] 1964 Unknown [id number] [id number] 4 1964 Unknown [id number] [id number] 9 1964 Unknown [id number] [id number] 1964 Unknown [id number] [id number] 6 1959 Unknown [id number] 1959 Unknown [id number] Unknown [id number] [id number] Unknown [id number] Unknown [id number] Unknown [id number] Social History Date Type Detail Facility Start: 08-19-2019 End: 08-14-2023 Tobacco smoking status NHIS Never smoker [place] Start: 08-19-2019 End: 06-18-2023 Alcohol intake Ex-drinker (finding) [place], [place] Start: 1965 Sex Assigned At Not on file [place] Start: 02-13-2023 End: 06-18-2023 No alcohol use No alcohol use [facility] [facility] DO Work Phone: Start: 08-19-2019 End: 08-14-2023 Tobacco use and exposure Smokeless tobacco non-user [facility] Work Phone: Start: 02-13-2023 End: 06-18-2023 Sex Assigned At Female [facility] Start: 1965 Sex Assigned At Female F [facility] Patient Health Questionnaire 9 item (PHQ-9) total score [Reported] 0 [facility] Start: 08-14-2023 Alcohol intake Lifetime non-drinker (finding) [facility] Work Phone: Start: 08-04-2023 End: 08-14-2023 Exposure to SARS-CoV-2 (event) Not sure [facility] NEGATED: Highlighted row Denies Caffeine use Denies Caffeine use -[facility] DO Work Phone: Medical [...] 06-02-2022 Functional Status N/A [facility] Clinical Notes 06-02-2022 to 08-14-2023 Ramandeep Garibay, [...] has a history of remote CABG, remote [place], remote PCI's before and after her CABG [...] Assessment/Plan 1. Atherosclerosis of coronary artery of [place] heart without angina pectoris, unspecified vessel or lesion type 2. History of coronary artery bypass graft 3. Ischemic cardiomyopathy 4. Essential hypertension, benign documented in this encounter [facility] Work Phone: 08-14-2023 Instructions Ej Braswell MA [...] of your visit. documented in this encounter [facility] Work Phone: 06-18-2023 Hospital Discharge instructions Lissa [...] call if excessive. Call the office at [phone] ([place]) [phone] ([place]) for an appointment in 2 weeks. documented in this encounter [facility] 06-06-2023 History of Present illness Narrative Patient [...] Dr. Engel. documented in this encounter [facility] 11-20-2022 Evaluation note Encounter Date Diagnosis Assessment Notes Nov, Elevated liver function tests (ICD-10 - R94.5) [facility] Evaluation note* Encounter Date Diagnosis Assessment Notes Treatment Notes Treatment Clinical Notes Oct, Abdominal pain (ICD-10 - R10.9) Oct, Common bile duct dilatation (ICD-10 - K83.8) Oct, Elevated liver enzymes (ICD-10 - R74.8) Oct, Constipation (ICD-10 - K59.00) Colonoscopy Start Miralax daily after colonoscopy. Titration dosing discussed with patient. Oct, Colon cancer screening (ICD-10 - Z12.11) Step-In Other 01-04-2023 NotePROGRESS NOTE NOTE DATE: 10/04/2022 CHIEF COMPLAINT: Abdominal pain. HISTORY OF PRESENT ILLNESS: The patient is a 57-year-old female with a history of dyslipidemia and gastric bypass surgery, who has been having increasing abdominal pain and flank pain. She was seen yesterday at the [place] [facility] for epigastric and upper abdominal [...] Prophylaxis: Lovenox. DISPOSITION: Home when medically stable.[id number] Discharge [facility] Patient Education 06/02/2022 08:51:52 Kidney Stones, Karx-ps-Pury Kidney Stones Kidney stones are rock-like masses [...] Follow these instructions at home: Medicines Take fdaz-lul-qabglud and prescription medicines only as told by [...] 03/05/2009 Document Revised: 02/03/2020 Document Reviewed: 02/03/2020 [email or web address] Patient Education 2020 [employer] Follow Up Care 05/27/2021 09:10:08 With:Santiago CARRILLO MD, URL Address: [address] [place] [address]- When: Unknown [facility] evaluation + Plan note Future Appointments Appointment Date:06/01/2023 08:00:00 AM Scheduled Provider:Santiago CARRILLO MD Location:[facility] Appointment Type:URO Office Visit [facility] evaluation note* Diagnosis Women's annual routine gynecological examination documented in this encounter [employer] Work Phone: evaluation noteNo assessment information available [facility] Work Phone: Evaluation noteNo InformationNort Liquid Gr[employer] Other Evaluation note* Diagnosis Post-menopausal bleeding Postmenopausal bleeding Inclusion cyst Sebaceous cyst [facility] Diagnosis Atherosclerosis of coronary artery of buck[place] heart without angina pectoris, unspecified vessel or lesion type 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 Ischemic cardiomyopathy Other specified forms of chronic ischemic heart disease Essential hypertension, benign documented in this encounter [facility] Work Phone: History and physical note Author Evert Bruno [facility] November 01, 2022 12:40pm Note Date/Time November 01, 2022 1 2:40pm [facility] ENTER [address] [place] [address] Gastroenterology H&P Signed Patient: Jose Alberto Saleem MR#: [id number] : 1965 Acct:[id number] Age/Sex: 57 / F Adm Date: 3 Loc: Room: Type: [facility] Attending Dr: Evert Bruno MD Copies to: [...] signed by Evert Bruno MD> 11/01/22 1240 [facility] Work Phone: History and physical note Author Evert Bruno [facility] November 02, 2022 2:14pm Note Date/Time November 02, 2022 2 :14pm [facility] [address] [place] [address] Gastroenterology H&P Signed Patient: Jose Alberto Saleem MR#: [id number] : 1965 Acct:[id number] Age/Sex: 57 / F Adm Date: 3 Loc: Room: Type: [facility] Attending Dr: Evert Bruno MD Copies to: [...] signed by Evert Bruno MD> 11/02/22 1414 [facility] Work Phone: History general Narrative - Reported* Type Description Date Medical History impaired fasting glucose Medical History heart disease, MN stents, CABG Medical History Hypertension Medical History hyperlipidemia 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 -Follow up with PCP. -Office number [phone]. [facility] Work Phone: Hospital Discharge instructions Additional [...] problems. -Follow up with PCP. -Office number [phone]. [facility] Work Phone: Progress note No data available for this section [facility] reason for referral (narrative)* Consultation (Routine) - Authorized Specialty Diagnoses / Procedures Referred By Manfred t Referred To Contact Cardiology Diagnoses Atherosclerosis of coronary artery of buckland heart without angina pectoris, unspecified vessel or lesion type History of coronary artery bypass graft Procedures Follow Up In Cardiology Ramandeep Garibay DO [address] [facility] 2, [address] [address] Ramandeep Garibay DO [address] [place] [address] 2, [address] [address] Referral ID Status Reason Start Date Expiration Date V isits Requested Visits Authorized [id number] Authorized 08/14/2023 08/13/2024 1 1 [facility] Work Phone: Summary Purpose Family History No [...] FoundDocuments on File Type Date 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 Last ischemic evaluation 2017 revealed a normal myocardial perfusion stress test. * Patient has no current angina or heart failure hospitalizations. She is status post Sly-en-Y gastric bypass with substantial weight loss. * She remains on aspirin and atorvastatin only for her secondary preventive therapies given her adverse reactions to other medications, hypotension. * [place] [employer] Association is class I * Recommendations, [...] She has a history of prior inferior MN, prior PCI with subsequent three-vessel CABG and [...] She has a history of prior inferior MN, prior PCI with subsequent three-vessel CABG and [...] section and content) DATE CREATED AUTHOR 03/26/2018 [facility] Healthcare DATE CREATED AUTHOR AUTHOR'S ORGANIZ ATION 03/26/2018 [facility] ical Center DATE CREATED AUTHOR AUTHOR'S ORGANIZ ATION 08/02/2022 [facility] dical Specialist DATE CREATED AUTHOR AUTHOR'S ORGANIZ ATION 08/17/2022 [employer] DATE CREATED AUTHOR AUTHOR'S ORGANIZ ATION 10/17/2022 [facility] DATE CREATED AUTHOR AUTHOR'S ORGANIZ ATION 12/16/2022 [facility] DATE CREATED AUTHOR AUTHOR'S ORGANIZ ATION 06/23/2023 [facility] DATE CREATED AUTHOR AUTHOR'S ORGANIZ ATION 07/16/2023 [facility] DATE CREATED AUTHOR AUTHOR'S ORGANIZ ATION [facility] DATE CREATED AUTHOR AUTHOR'S ORGANIZ ATION 09/15/2023 [facility] dical Specialists EPIC DATE CREATED AUTHOR AUTHOR'S ORGANIZ ATION 12/04/2023 [facility] ical Center DATE CREATED AUTHOR AUTHOR'S ORGANIZ ATION 01/19/2024 [facility] Care Teams (unrecognized sec tion and content) Team Status: Active Member Role Status Dates Ashley Dejesus MD Primary Care Provider Active Team Status: Inactive Member Role Status Dates Ashley Dejesus MD Primary Care Provider Active Evert Bruno MD Attending Provider Active Cone Runner Relationship Specialty Start Date End Date Ashley Dejesus MD [facility] [place] [address] PCP - General Family Medicine 08/19/19 [employer]one Runner Relationship Specialty Start Date End Date Ashley Dejesus MD [address] [place] [address] PCP - General Family Medicine 08/19/19 Cone Runner Relationship Specialty Start Date End Date Ashley Dejesus MD [address] [facility] [place] [address] PCP - General 08/17/21 REASON FOR VISIT (unrecogniz ed section and content) Specialty Diagnoses / Procedures Referred By Manfred t Referred To Contact Diagnoses Post-menopausal bleeding Inclusion cyst Post-menopausal bleeding [N95.0] Inclusion cyst [L72.0] Procedures IA HYSTEROSCOPY BX ENDOMETRIUM&/POLYPC W/WO D&C IA DESTRUCTION BENIGN LESIONS UP TO 14 DILATATION AND CURETTAGE HYSTEROSCOPY-REMOVAL OF INCLUSION CYST Gaby Chahal, DO [address] [place] [address] [facility] [id number] [place] [address] Referral ID Status Reason Start Date Expiration Date Visits Re quested Visits Authorized [id number] 1 1 Reason Comments Annual Exam 1yr [...] BE BASED ON THE PRIMARY CLINICAL RECORDS. [employer] provides no warranty or guarantee of the accuracy or completeness of information in this document.
--- NOTE | 2024-01-19 12:05 | XR_ITS ---
The [address] [address] Patient Name: JOSE ALBERTO SALEEM MRN: [id number] date: 1965 Sex: F Assigned Patient Location: [facility] Current Patient Location: Accession/Order Number: [id number] Exam Date: 01/19/2024 12:08 Report Date: 01/20/2024 06:17 At the request of: ARTHUR CARRILLO Procedure: XR abdomen 1V EXAMINATION: XR abdomen 1V HISTORY: Kidney stone N20.0 COMPARISON: XR abdomen 10/05/2022 FINDINGS: KIDNEY/URETER - RIGHT: No visible renal or ureteral calcifications. KIDNEY/URETER - LEFT: No visible renal or ureteral calcifications. PELVIS: No visible ureteral stones. Stable pelvic calcifications favoring phleboliths. BOWEL: No abnormal dilation or deviation. BONES: No acute abnormality. OTHER: Numerous surgical clips within abdomen. XR/XR abdomen 1V IMPRESSION: 1. No appreciable urinary tract calculi. Electronically authenticated by: RONAN TORIBIO Date: 01/20/2024 06:17
[2024-01-19 13:13] LABS: Calcium 9.8 mg/dL (8.5-10.1); Chloride 102 mmol/L (98-107); Estimated GFR (African America >60 (>=60); Estimated GFR (Non-African Ame >60 (>=60); Potassium 4.2 mmol/L (3.5-5.1); Sodium 143 mmol/L (136-145); Uric Acid 3.7 mg/dL (2.6-6.0)
[2024-01-19 13:37] LABS: Calcium Urine Random 8.9 mg/dL (5.1-21.0); Creatinine Urine Random 28.77 mg/dL (20.00-300.00); Sodium Urine Random 39 mmol/L (30-90)
[2024-01-19 13:50] LABS: Calcium 24 Hour Urine 269.7 mg/24hr (100.0-300.0); Creatinine 24 Hour Urine 871.73 mg/24 hr (800.00-1800.00); Sodium 24 Hour Urine 118 mmol/24h (40-220); Total Volume 24 Hour Urine 3030 mL/24hr
[2024-01-21 15:08] LABS: Citric Acid, U, 24hr 688 mg/24 hr (320-1240); Citric Acid, Urine 227 mg/L (Undefined)
[2024-01-22 04:11] LABS: Magnesium, U 6.9 mg/dL (Not Estab.); Magnesium,Urine 24hr 209.1 mg/24 hr (12.0-293.0); Phosphorus,Urine 24h 606 mg/24 hr (261-1078); Uric Acid, Urine 13.7 mg/dL (Not Estab.); Uric Acid,Urine 24hr 415.1 mg/24 hr (173.7-902.1)
[2024-01-22 12:10] LABS: PTH, Intact 36 pg/mL (15-65)
[2024-01-22 14:09] LABS: Oxalates, Urine 15 mg/L (Undefined); Oxalates, Urine 24hr 45 mg/24 hr (4-31)
== END 2024-01-19 11:38 | disposition home or self-care (01) ==
PROVIDERS: PCP Family Medicine; Visit Provider Urology
DX: E78.1 Pure hyperglyceridemia (principal); R74.8 Abnormal levels of other serum enzymes; N20.0 Calculus of kidney
CPT/HCPCS: 36415; 74018; 80074; 80076; 81050; 82310; 82340; 82374; 82435; 82507; 82565; 82570; 83735; 83945; 83970; 84105; 84132; 84295; 84300; 84520; 84550; 84560

== ENCOUNTER 2024-01-24 16:15 | Outpatient (OUT) | payer BC, SELFPAY ==
[2024-01-24 16:52] LABS: Basophils Percent Auto 0.6 % (0.2-2.0); Eosinophils Absolute Auto 0.3 10^3/uL (0.0-0.7); Eosinophils Percent Auto 4.1 % (0.9-7.0); Hemoglobin 14.4 g/dL (12.0-16.0); Immature Granulocytes Abs Auto 0.01 10^3/uL (0.00-0.03); Immature Granulocytes Pct Auto 0.1 % (0.0-0.5); Lymphocytes Absolute Auto 2.2 10^3/uL (1.2-3.8); Lymphocytes Percent Auto 30.1 % (20.5-60.0); Mean Corpuscular HGB Conc 32.7 g/dL (29.9-35.2); Mean Corpuscular Hemoglobin 30.1 pg (26.7-34.0); Mean Corpuscular Volume 91.9 fL (81.0-99.0); Mean Platelet Volume 9.4 fL (9.5-13.5); Monocytes Absolute Auto 0.6 10^3/uL (0.3-0.8); Monocytes Percent Auto 8.4 % (1.7-12.0); Neutrophils Absolute Auto 4.1 10^3/uL (1.4-6.5); Neutrophils Percent Auto 56.7 % (43.0-75.0); Platelet Count 202 10^3/uL (150-450); Red Blood Count 4.79 10^6/uL (4.20-5.40); Red Cell Distribution Width 11.6 % (11.0-15.0); White Blood Count 7.2 10^3/uL (4.0-11.0)
[2024-01-24 17:14] LABS: Alanine Aminotransferase 144 U/L (14-59); Albumin Level 3.6 g/dL (3.4-5.0); Alkaline Phosphatase 98 U/L (46-116); Amylase 196 U/L (25-115); Anion Gap 12.5; Aspartate Amino Transferase 66 U/L (15-37); BUN Creatinine Ratio 36.1; Bilirubin Total 0.3 mg/dL (0.2-1.0); Calcium 9.8 mg/dL (8.5-10.1); Carbon Dioxide 32.3 mmol/L (21.0-32.0); Chloride 100 mmol/L (98-107); Estimated GFR (African America >60 (>=60); Estimated GFR (Non-African Ame >60 (>=60); Globulin 3.5 g/dL; Glucose 137 mg/dL (74-106); Potassium 3.8 mmol/L (3.5-5.1); Sodium 141 mmol/L (136-145); Total Protein 7.1 g/dL (6.4-8.2)
== END 2024-01-24 16:16 | disposition home or self-care (01) ==
LOC: LAB 16:16
PROVIDERS: PCP Family Medicine; Visit Provider Family Medicine
DX: R10.9 Unspecified abdominal pain (principal)
CPT/HCPCS: 36415; 80053; 82150; 83690; 85025

== ENCOUNTER 2024-01-25 15:10 | Inpatient (IN) | payer BC, SELFPAY ==
[2024-01-25 16:16] VITALS: BP 137/83; PULSE 67; TEMP 35.8; O2SAT 96; BMI 30.3
--- NOTE | 2024-01-25 16:21 | CT_ITS ---
The [address] [address] Patient Name: JOSE ALBERTO SALEEM MRN: [id number] date: 1965 Sex: F Assigned Patient Location: [place] Current Patient Location: [place] Accession/Order Number: [id number] Exam Date: 01/25/2024 16:20 Report Date: 01/25/2024 19:42 At the request of: ASHLEY GRIGSBY Procedure: CT abdomen pelvis w con CT ABDOMEN/PELVIS WITH IV CONTRAST. INDICATION: Abd Pain. COMPARISON: There are no other studies available for comparison. TECHNIQUE: Contiguous axial images were obtained from the lung bases to the pelvic floor following the intravenous administration of contrast. Coronal and sagittal reformations are provided. FINDINGS: LOWER LUNGS: Clear. LIVER/BILIARY TREE: No mass. No intrahepatic ductal dilatation. GALLBLADDER: Status post cholecystectomy.. CBD: Normal CBD. SPLEEN: Normal in size. PANCREAS: No acute findings. No peripancreatic fluid or inflammation. No pancreatic duct dilatation. No discrete mass. ADRENALS: Normal. KIDNEYS: No hydronephrosis. No radiopaque calculus. STOMACH AND BOWEL: Postoperative changes of the stomach. No dilated bowel loops. No bowel wall thickening. Moderate colonic fecal load. APPENDIX: Not visualized PERITONEAL CAVITY: No fluid. No fat stranding. ABDOMINAL WALL: No subcutaneous stranding. No subcutaneous fluid collection. LYMPH NODES: No mesenteric or retroperitoneal lymphadenopathy by CT criteria. ABDOMINAL AORTA: No aneurysm. PELVIS: No acute abnormality. MUSCULOSKELETAL: No acute osseous abnormality. CT/CT abdomen pelvis w con IMPRESSION: 1. No acute abnormality in the abdomen or pelvis. 2. Moderate colonic fecal load. Electronically authenticated by: EARLINE ARROYO Date: 01/25/2024 19:42
--- NOTE | 2024-01-25 16:28 | P.HP_ITS ---
HPI H&P: HPI History of Present Illness Chief complaint: PANCREATITIS Narrative: Patient was seen and evaluated in the office with increasing abdominal pain. Laboratory evaluation was completed which showed patient had acute pancreatitis. Unable to get a hold of her hour of the night, discussed with her this morning and pain is increasing. No fever still. With the severity of her pain with pancreatitis likely progressing, patient will be admitted for inpatient treatment of acute pancreatitis This saw the patient she was having moderate abdominal discomfort at rest. Mild rebound tenderness on exam. See below. Opioid HPI Opioid Management Most Recent Opioid Data: Last Pain Scale 7 01/25/24 16:16 Last Pain Assessment 01/25/24 16:16 Last ORT Total Score 0 01/25/24 16:16 Last ORT Risk Category Low Risk 01/25/24 16:16 Review of Systems ROS Status of ROS 10 or more systems reviewed and unremark able except as noted in history and below [facility] Medical History (Updated 01/25/24 @ 16:32 by Ziggy Dejesus MD) Depression ?F32.A - Depression, unspecified (ICD-10) Cataract ?H26.9 - Unspecified cataract (ICD-10) Hyperlipidemia ?E78.5 - Hyperlipidemia, unspecified (ICD-10) History of prediabetes ?Z87.898 - Personal history of other specified conditions (ICD-10) Hypertension ?I10 - Essential (primary) hypertension (ICD-10) Surgical History (Updated 01/25/24 @ 15:50 by Tamanna Stoll) H/O rhinoplasty ?Z98.890 - Other specified postprocedural states (ICD-10) History of carpal tunnel release of both wrists ?Z98.890 - Other specified postprocedural states (ICD-10) H/O gastric bypass ?Z98.84 - Bariatric surgery status (ICD-10) H/O heart artery stent ?Z95.5 - Presence of coronary angioplasty implant and graft (ICD-10) History of quadruple bypass ?Z95.1 - Presence of aortocoronary bypass graft (ICD-10) Hx of appendectomy ?Z90.49 - Acquired absence of other specified parts of digestive tract (ICD- 10) H/O hernia repair ?Z98.890 - Other specified postprocedural states (ICD-10) ?Z87.19 - Personal history of other diseases of the digestive system (ICD-10) Hx of cholecystectomy ?Z90.49 - Acquired absence of other specified parts of digestive tract (ICD- 10) Family History (Updated 01/25/24 @ 15:51 by Tamanna Stoll) Mother Family history of CHF (congestive heart failure) Family history of hypertension Father Family history of CHF (congestive heart failure) Family history of COPD (chronic obstructive pulmonary disease) Brother Family history of CHF (congestive heart failure) Family history of stroke Family history of myocardial infarction Family history of hypertension Grandmother Family history of cancer Sister Family history of hypertension Social History Highest level of school completed/degree received: Associate degree: academic program Meds Home Medications and Allergies Home Medications ?Medication ?Instructions ?Recorded ?Confirmed ?Type aspirin 81 mg tablet,delayed 81 mg PO BEDTIME 01/25/24 01/25/24 History release atorvastatin 20 mg tablet 20 mg PO BEDTIME 01/25/24 01/25/24 History cevimeline 30 mg capsule 30 mg PO TID 01/25/24 01/25/24 History citalopram 40 mg tablet 40 mg PO DAILY 01/25/24 01/25/24 History fluticasone propionate 50 2 spray intranasal BID 01/25/24 01/25/24 History mcg/actuation nasal spray,suspension hydrochlorothiazide 12.5 mg tablet 12.5 mg PO DAILY 01/25/24 01/25/24 History rabeprazole 20 mg tablet,delayed 20 mg PO BID 01/25/24 01/25/24 History release tamsulosin 0.4 mg capsule 0.4 mg PO DAILY 01/25/24 01/25/24 History tramadol 50 mg tablet 50 mg PO Q6H PRN pain 01/25/24 01/25/24 History Allergies Allergy/AdvReac Type Severity Reaction Status Date / Time latex Allergy Severe Anaphylaxis Verified 01/25/24 16:00 Penicillins Allergy Intermediate Hives Verified 01/25/24 16:00 Sulfa (Sulfonamide Allergy Intermediate Verified 01/25/24 16:00 Antibiotics) adhesive tape AdvReac Verified 01/25/24 16:00 Exam Constitutional Vital Signs, click to edit/add: Last Vital Signs Temp 96.4 F L 01/25/24 16:16 Pulse 67 01/25/24 16:16 Resp 18 01/25/24 16:16 BP 137/83 01/25/24 16:16 Pulse Ox 96 01/25/24 16:16 O2 Del Method Room Air 01/25/24 16:16 Documenting provider has reviewed patient's vital signs: yes Common normals: apparent distress (Moderate painful distress) Chest Common normals: inspection of chest normal Respiratory Common normals: normal respiratory effort, no retractions and clear to auscultation bilaterally Cardio Common normals: regular rate and regular rhythm GI Common normals: Normal to inspection, nondistended, normoactive bowel sounds present and soft to palpation; tender Palpation: tender (More in upper abdomen. Mild rebound tenderness) Neuro Common normals: oriented x3, CN's II-XII intact bilaterally and moves all extremities Assessment and Plan Assessment and Plan (1) Acute abdomen: (2) Acute pancreatitis: Plan Acute abdominal findings with diffusely tender and positive rebound tenderness secondary to acute pancreatitis. This has been progressive over the last 2 days. Failed outpatient treatment. Pain worsening today. Will check CT scan, labs, start patient on IV antibiotics for concern of infective pancreatitis secondary to the rebound tenderness on exam. Depression-continue statin medication Hypercholesterolemia will hold that medication Admission status: With progressive pancreatitis despite outpatient monitoring, progressive symptoms, acute abdomen on exam with rebound tenderness, antibiotic, blood cultures, medically necessary treatment will span [address] patient in inpatient status
[2024-01-25 17:12] LABS: Basophils Percent Auto 0.3 % (0.2-2.0); Eosinophils Absolute Auto 0.2 10^3/uL (0.0-0.7); Eosinophils Percent Auto 3.2 % (0.9-7.0); Hematocrit 42.3 % (36.0-48.0); Hemoglobin 14.1 g/dL (12.0-16.0); Immature Granulocytes Abs Auto 0.03 10^3/uL (0.00-0.03); Immature Granulocytes Pct Auto 0.4 % (0.0-0.5); Lymphocytes Absolute Auto 2.2 10^3/uL (1.2-3.8); Lymphocytes Percent Auto 28.6 % (20.5-60.0); Mean Corpuscular HGB Conc 33.3 g/dL (29.9-35.2); Mean Platelet Volume 9.6 fL (9.5-13.5); Monocytes Absolute Auto 0.7 10^3/uL (0.3-0.8); Monocytes Percent Auto 9.7 % (1.7-12.0); Neutrophils Absolute Auto 4.4 10^3/uL (1.4-6.5); Neutrophils Percent Auto 57.8 % (43.0-75.0); Platelet Count 192 10^3/uL (150-450); Red Cell Distribution Width 11.7 % (11.0-15.0); White Blood Count 7.6 10^3/uL (4.0-11.0)
[2024-01-25 17:19] LABS: Amylase 138 U/L (25-115)
[2024-01-25 17:20] LABS: Ammonia 14 umol/L (11-32)
[2024-01-25 17:22] LABS: Chol HDL Ratio 3.3; Cholesterol 150 mg/dL (<=200); HDL Cholesterol 46 mg/dL (40-60); LDL Cholesterol Calculated 76.8 mg/dL; Magnesium 2.3 mg/dL (1.8-2.4); Triglycerides 136 mg/dL (<=150); VLDL CHOLESTEROL 27.2 mg/dL
[2024-01-25 17:24] LABS: Alanine Aminotransferase 134 U/L (14-59); Albumin Globulin Ratio 1.1; Albumin Level 3.6 g/dL (3.4-5.0); Alkaline Phosphatase 95 U/L (46-116); Anion Gap 13.6; Aspartate Amino Transferase 58 U/L (15-37); BUN Creatinine Ratio 53.7; Bilirubin Total 0.3 mg/dL (0.2-1.0); Calcium 9.9 mg/dL (8.5-10.1); Carbon Dioxide 30.5 mmol/L (21.0-32.0); Chloride 101 mmol/L (98-107); Estimated GFR (African America >60 (>=60); Estimated GFR (Non-African Ame >60 (>=60); Globulin 3.3 g/dL; Glucose 106 mg/dL (74-106); Potassium 4.1 mmol/L (3.5-5.1); Sodium 141 mmol/L (136-145); Total Protein 6.9 g/dL (6.4-8.2)
[2024-01-25 17:25] LABS: Lactate/Lactic Acid 0.9 mmol/L (0.4-2.0)
[2024-01-25] MEDS: METRONIDAZOLE/SODIUM CHLORIDE 500 MG/100 ML PREMIX 100 MG IV (17:32)
[2024-01-25] MEDS: LACTATED RINGER'S SOLUTION 1,000 ML 100 ML IV (17:32)
[2024-01-25] MEDS: KETOROLAC TROMETHAMINE 30 MG/ML VIAL IVP (18:58)
[2024-01-25 19:15] LABS: Bilirubin Urine NEGATIVE (NEGATIVE); Blood Urine NEGATIVE (NEGATIVE); Clarity Urine CLEAR (CLEAR); Color Urine LT. YELLOW (YELLOW); Glucose Urine UA NEGATIVE (NEGATIVE); Ketones Urine NEGATIVE (NEGATIVE); Leukocyte Esterase Urine SMALL (NEGATIVE); Nitrite Urine NEGATIVE (NEGATIVE); Protein Urine NEGATIVE (NEG/TRACE); Urobilinogen Urine 0.2 EU/dL (0.2-1.0); pH Urine 7.5 (5.0-9.0)
[2024-01-25 19:27] LABS: Bacteria Urine NONE SEEN #/HPF (NONE SEEN); Cast Seen? NONE SEEN #/LPF (NONE SEEN); Crystals Seen? None Seen #/HPF (None Seen); Mucus Urine NONE SEEN (NONE SEEN); RBC Urine 0-2 #/HPF (0-2); Squamous Epithelial Cell Urine RARE #/LPF (NONE/RARE); Urine Culture Indicated ALREADY ORDERED
[2024-01-25 20:12] VITALS: BP 137/78; PULSE 67; TEMP 36.4; O2SAT 95
[2024-01-25] MEDS: FLUTICASONE PROPIONATE 50 MCG NASAL SPRAY 2 SPRAY NS (21:16)
[2024-01-25] MEDS: CEVIMELINE 30 MG 30 EACH PO (21:17)
[2024-01-25] MEDS: LEVOFLOXACIN IN DEXTROSE 5 % 750 MG/150 ML IV.SOLN 100 MG IV (21:17)
[2024-01-25] MEDS: ACETAMINOPHEN 500 MG TABLET 1000 MG PO (21:25)
[2024-01-25] MEDS: ONDANSETRON PF 4 MG/2 ML VIAL IV (22:54)
[2024-01-26] VITALS: BP 123/72; PULSE 59; TEMP 36.4; O2SAT 94
[2024-01-26] MEDS: METRONIDAZOLE/SODIUM CHLORIDE 500 MG/100 ML PREMIX 100 MG IV ×5 (00:39→23:08)
[2024-01-26] MEDS: KETOROLAC TROMETHAMINE 30 MG/ML VIAL IVP ×4 (01:03→21:56)
[2024-01-26 04:00] VITALS: BP 133/76; PULSE 64; TEMP 36.4; O2SAT 97
[2024-01-26 04:39] LABS: Basophils Percent Auto 0.3 % (0.2-2.0); Eosinophils Absolute Auto 0.3 10^3/uL (0.0-0.7); Hematocrit 40.2 % (36.0-48.0); Hemoglobin 13.1 g/dL (12.0-16.0); Immature Granulocytes Abs Auto 0.01 10^3/uL (0.00-0.03); Immature Granulocytes Pct Auto 0.2 % (0.0-0.5); Lymphocytes Absolute Auto 2.3 10^3/uL (1.2-3.8); Lymphocytes Percent Auto 36.9 % (20.5-60.0); Mean Corpuscular HGB Conc 32.6 g/dL (29.9-35.2); Mean Corpuscular Hemoglobin 29.8 pg (26.7-34.0); Mean Corpuscular Volume 91.4 fL (81.0-99.0); Mean Platelet Volume 9.5 fL (9.5-13.5); Monocytes Absolute Auto 0.8 10^3/uL (0.3-0.8); Monocytes Percent Auto 12.1 % (1.7-12.0); Neutrophils Absolute Auto 2.9 10^3/uL (1.4-6.5); Neutrophils Percent Auto 46.5 % (43.0-75.0); Platelet Count 167 10^3/uL (150-450); Red Cell Distribution Width 11.7 % (11.0-15.0); White Blood Count 6.3 10^3/uL (4.0-11.0)
[2024-01-26 05:21] LABS: Alanine Aminotransferase 109 U/L (14-59); Albumin Globulin Ratio 1.1; Albumin Level 3.3 g/dL (3.4-5.0); Alkaline Phosphatase 83 U/L (46-116); Amylase 148 U/L (25-115); Aspartate Amino Transferase 45 U/L (15-37); BUN Creatinine Ratio 33.9; Bilirubin Total 0.3 mg/dL (0.2-1.0); Calcium 9.6 mg/dL (8.5-10.1); Carbon Dioxide 29.9 mmol/L (21.0-32.0); Chloride 104 mmol/L (98-107); Estimated GFR (African America >60 (>=60); Estimated GFR (Non-African Ame >60 (>=60); Globulin 2.9 g/dL; Glucose 94 mg/dL (74-106); Potassium 3.9 mmol/L (3.5-5.1); Sodium 142 mmol/L (136-145); Total Protein 6.2 g/dL (6.4-8.2)
[2024-01-26] MEDS: CEVIMELINE 30 MG 30 EACH PO ×3 (05:46→21:54)
--- NOTE | 2024-01-26 07:23 | US_ITS ---
The [address] [address] Patient Name: JOSE ALBERTO SALEEM MRN: [id number] date: 1965 Sex: F Assigned Patient Location: [place] Current Patient Location: Accession/Order Number: [id number] Exam Date: 01/26/2024 07:50 Report Date: 01/26/2024 09:17 At the request of: ASHLEY GRIGSBY Procedure: US right upper quadrant EXAM: US right upper quadrant 01/26/2024 COMPARISON STUDY: CT of the abdomen and pelvis with contrast 01/25/2024. TECHNIQUE: Multiple sagittal and transverse images of the right upper quadrant were obtained. Bowie-scale, color, and spectral wave Doppler analysis was utilized. HISTORY: Pancreatitis. FINDINGS: The visualized portions of the uncinate process, pancreatic head, neck, and proximal body appear unremarkable. A majority of the body and tail however is not well seen and is obscured by overlapping bowel gas. On the prior CT study the pancreas appeared unremarkable. Gallbladder is surgically absent. Visualized portions of the liver, IVC, and right kidney demonstrate no acute abnormality. There is no obvious ascites. Main portal vein is patent with flow in the correct direction. Interrogated hepatic veins are otherwise patent. No significant biliary ductal dilatation. Common bile duct has a diameter of 4 mm. Right kidney measures 12.7 x 6.0 x 4.6 cm without hydronephrosis. Inferior pole cyst measures 2.7 x 2.5 x 2.4 cm. US/US right upper quadrant IMPRESSION: 1. Prior cholecystectomy. 2. A majority of the pancreatic body and tail are obscured by overlapping bowel gas. Proximal portions appear unremarkable. The pancreas appeared within normal limits on the CT study from 01/25/2024. 3. Inferior pole right renal cyst. Electronically authenticated by: HAWK HULL Date: 01/26/2024 09:17
[2024-01-26 07:40] VITALS: BP 124/69; PULSE 61; TEMP 36.4; O2SAT 98
[2024-01-26] MEDS: CITALOPRAM HYDROBROMIDE 20 MG TABLET 40 MG PO (08:59)
[2024-01-26] MEDS: PANTOPRAZOLE SODIUM 40 MG VIAL IV (08:59)
[2024-01-26] MEDS: FLUTICASONE PROPIONATE 50 MCG NASAL SPRAY 2 SPRAY NS ×2 (09:00→21:53)
--- NOTE | 2024-01-26 09:29 | P.PN_ITS ---
Progress Note: Subjective Subjective Interval history: Overnight patient states pain was somewhat worse, this morning may be slightly better than yesterday. Some nausea persisting. Exam Constitutional Vital Signs, click to edit/add: Last Vital Signs Temp 97.6 F 01/26/24 07:40 Pulse 61 01/26/24 07:40 Resp 18 01/26/24 07:40 BP 124/69 01/26/24 07:40 Pulse Ox 98 01/26/24 07:40 O2 Del Method Room Air 01/26/24 07:40 Documenting provider has reviewed patient's vital signs: yes Common normals: apparent distress (Moderate painful distress - unchanged) Chest Common normals: inspection of chest normal Respiratory Common normals: normal respiratory effort, no retractions and clear to auscultation bilaterally Cardio Common normals: regular rate and regular rhythm GI Common normals: Normal to inspection, nondistended, normoactive bowel sounds present and soft to palpation; tender Palpation: tender (More in upper abdomen. Mild rebound tenderness -unchanged) Neuro Common normals: oriented x3, CN's II-XII intact bilaterally and moves all extremities Progress Note: Objective Labs Labs: Short CBC 01/25/24 01/26/24 Range/Units 16:50 03:58 WBC 7.6 6.3 (4.0-11.0) 10^3/uL Hgb 14.1 13.1 (12.0-16.0) g/dL Hct 42.3 40.2 (36.0-48.0) % Plt Count 192 167 (150-450) 10^3/uL BMP 01/25/24 01/26/24 16:50 03:58 Sodium 141 142 Potassium 4.1 3.9 Chloride 101 104 Carbon Dioxide 30.5 29.9 BUN 29.0 H 21.0 H Creatinine 0.54 L 0.62 Glucose 106 94 Calcium 9.9 9.6 Liver Function 01/25/24 01/26/24 Range/Units 16:50 03:58 Total Bilirubin 0.3 0.3 (0.2-1.0) mg/dL AST 58 H 45 H (15-37) U/L ALT 134 H 109 H (14-59) U/L Alkaline Phosphatase 95 83 (46-116) U/L Albumin 3.6 3.3 L (3.4-5.0) g/dL Urine 01/25/24 Range/Units 18:36 Urine Color Lt. yellow (YELLOW) Urine Clarity Clear (CLEAR) Urine pH 7.5 (5.0-9.0) Ur Specific Morris 1.010 (1.005-1.025) Urine Protein Negative (NEG/TRACE) mg/dL Urine Glucose (UA) Negative (NEGATIVE) mg/dL Progress Note: A&P Assessment and Plan (1) Acute abdomen: (2) Acute pancreatitis: Plan Hypothermia, dehydration, elevated liver function test, acute abdominal findings with diffusely tender and positive rebound tenderness secondary to acute pancreatitis. Amylase lipase higher than yesterday. Will maintain n.p.o. status, check ultrasound, CT scan unremarkable for etiology for the pancreatitis. Lipid level normal. Dehydration with elevated BUN over creatinine-improved today. Continue with IV fluid resuscitation Depression-continue statin medication Acute KBN-hfwcpbte-DH also positive. Culture pending, antibiotics for the above acute abdominal findings should improve Hypercholesterolemia will hold that medication Admission status: With progressive pancreatitis despite outpatient monitoring, progressive symptoms, elevated liver function test, hypothermia, acute abdomen on exam with rebound tenderness, antibiotic, blood cultures, medically necessary treatment will span [address] patient in inpatient status ?
[2024-01-26] MEDS: LACTATED RINGER'S SOLUTION 1,000 ML 100 ML IV ×2 (10:12→19:58)
[2024-01-26 11:22] VITALS: BP 131/75; PULSE 59; TEMP 36.5; O2SAT 95
[2024-01-26 16:00] VITALS: BP 150/82; PULSE 62; TEMP 36.6; O2SAT 96
[2024-01-26 20:00] VITALS: BP 144/70; PULSE 58; TEMP 36.8; O2SAT 95
[2024-01-26] MEDS: LEVOFLOXACIN IN DEXTROSE 5 % 750 MG/150 ML IV.SOLN 100 MG IV (20:00)
[2024-01-26] MEDS: ACETAMINOPHEN 500 MG TABLET 1000 MG PO (20:02)
[2024-01-27] VITALS: BP 138/74; PULSE 75; TEMP 36.4; O2SAT 96
[2024-01-27 04:00] VITALS: BP 137/84; PULSE 82; TEMP 36.8; O2SAT 94
[2024-01-27 05:41] LABS: Alanine Aminotransferase 86 U/L (14-59); Albumin Globulin Ratio 1.1; Albumin Level 3.2 g/dL (3.4-5.0); Alkaline Phosphatase 80 U/L (46-116); Amylase 110 U/L (25-115); Anion Gap 11.6; Aspartate Amino Transferase 41 U/L (15-37); BUN Creatinine Ratio 21.7; Bilirubin Total 0.3 mg/dL (0.2-1.0); Calcium 9.3 mg/dL (8.5-10.1); Carbon Dioxide 29.2 mmol/L (21.0-32.0); Chloride 106 mmol/L (98-107); Estimated GFR (African America >60 (>=60); Estimated GFR (Non-African Ame >60 (>=60); Globulin 2.9 g/dL; Glucose 91 mg/dL (74-106); Potassium 3.8 mmol/L (3.5-5.1); Sodium 143 mmol/L (136-145); Total Protein 6.1 g/dL (6.4-8.2)
[2024-01-27 05:42] LABS: Basophils Percent Auto 0.2 % (0.2-2.0); Eosinophils Absolute Auto 0.2 10^3/uL (0.0-0.7); Eosinophils Percent Auto 3.9 % (0.9-7.0); Hematocrit 40.9 % (36.0-48.0); Hemoglobin 13.3 g/dL (12.0-16.0); Immature Granulocytes Abs Auto 0.01 10^3/uL (0.00-0.03); Immature Granulocytes Pct Auto 0.2 % (0.0-0.5); Lymphocytes Absolute Auto 1.5 10^3/uL (1.2-3.8); Lymphocytes Percent Auto 31.4 % (20.5-60.0); Mean Corpuscular HGB Conc 32.5 g/dL (29.9-35.2); Mean Corpuscular Hemoglobin 30.1 pg (26.7-34.0); Mean Corpuscular Volume 92.5 fL (81.0-99.0); Mean Platelet Volume 9.4 fL (9.5-13.5); Monocytes Absolute Auto 0.5 10^3/uL (0.3-0.8); Neutrophils Absolute Auto 2.7 10^3/uL (1.4-6.5); Neutrophils Percent Auto 54.3 % (43.0-75.0); Platelet Count 159 10^3/uL (150-450); Red Blood Count 4.42 10^6/uL (4.20-5.40); Red Cell Distribution Width 11.7 % (11.0-15.0); White Blood Count 4.9 10^3/uL (4.0-11.0)
[2024-01-27] MEDS: KETOROLAC TROMETHAMINE 30 MG/ML VIAL IVP ×2 (05:58→12:16)
[2024-01-27] MEDS: METRONIDAZOLE/SODIUM CHLORIDE 500 MG/100 ML PREMIX 100 MG IV ×2 (06:01→11:16)
[2024-01-27] MEDS: CEVIMELINE 30 MG 30 EACH PO ×2 (06:16→14:11)
--- NOTE | 2024-01-27 06:38 | PC.NURSE ---
Notified Dr. Dejesus of urine characteristics and being a dark tea color. no new orders at this time.
[2024-01-27 07:13] VITALS: BP 133/78; PULSE 79; TEMP 36.6; O2SAT 95
[2024-01-27] MEDS: FLUTICASONE PROPIONATE 50 MCG NASAL SPRAY 2 SPRAY NS (08:14)
[2024-01-27] MEDS: CITALOPRAM HYDROBROMIDE 20 MG TABLET 40 MG PO (08:14)
[2024-01-27] MEDS: PANTOPRAZOLE SODIUM 40 MG VIAL IV (08:14)
--- NOTE | 2024-01-27 10:02 | P.DS_ITS ---
DS: Providers Provider Date of admission: 01/25/24 15:10 Primary care physician: Ziggy Dejesus MD Consults: 01/25/24 16:12 Consult to Pharmacy Routine Consulting Provider: Reason for consultation: Please [place] me when Med Rec is Updated Has provider been notified: No DS: Diagnosis Discharge Diagnosis (1) Acute abdomen: (2) Acute pancreatitis: Plan Admission findings : hypothermia, dehydration, elevated liver function test, acute abdominal findings with diffusely tender and positive rebound tenderness secondary to acute pancreatitis. - improving at the time of discharge Dehydration with elevated BUN over creatinine-improved today. - improving at the time of discharge Depression-Stable Acute AEE-[id number] also positive. Culture pending Hypercholesterolemia Admission status: With progressive pancreatitis despite outpatient monitoring, progressive symptoms, elevated liver function test, hypothermia, acute abdomen on exam with rebound tenderness, antibiotic, blood cultures, medically necessary treatment will span [address] patient in inpatient status ? ? DS: Summary Hospital Course Hospital Course: Patient had been seen in the outpatient setting for abdominal pain. Found to have acute pancreatitis not improving with fat-free diet. Patient was admitted, CT scan showed no significant changes, ultrasound completed secondary to amylase lipase higher on day 2. Pain also higher on day 2. Still a fluid collection around pancreas. Today her amylase and lipase are back down to normal her pain is about a 3. Much improved from admission. No further rebound tenderness or firmness to her abdomen abdominal exam. At this point the plan is to let her eat breakfast and lunch, she tolerates that she can be discharged to home in improving condition. Medication status. See me in the office early this next week. Need to follow-up on urine culture. Time Spent with Patient Time attestation: Total time spent providing and/or coordinating discharge services: Exam Constitutional Vital Signs, click to edit/add: Last Vital Signs Temp 98 F 01/27/24 07:13 Pulse 79 01/27/24 07:13 Resp 18 01/27/24 07:13 BP 133/78 01/27/24 07:13 Pulse Ox 95 01/27/24 07:13 O2 Del Method Room Air 01/27/24 07:13 Documenting provider has reviewed patient's vital signs: yes Common normals: apparent distress (Moderate painful distress - unchanged) Chest Common normals: inspection of chest normal Respiratory Common normals: normal respiratory effort, no retractions and clear to auscultation bilaterally Cardio Common normals: regular rate and regular rhythm GI Common normals: Normal to inspection, nondistended, normoactive bowel sounds present and soft to palpation; tender (Much improved from admission) Palpation: tender (More in upper abdomen. No rebound tenderness -much improved) Neuro Common normals: oriented x3, CN's II-XII intact bilaterally and moves all extremities DS: Data Data Completed and Pending Labs on day of discharge: Labs from last 24 hours 01/27/24 04:31 WBC 4.9 RBC 4.42 Hgb 13.3 Hct 40.9 MCV 92.5 MCH 30.1 MCHC 32.5 RDW 11.7 Plt Count 159 MPV 9.4 L Neut % (Auto) 54.3 Lymph % (Auto) 31.4 [place] % (Auto) 10.0 Eos % (Auto) 3.9 Baso % (Auto) 0.2 Neut # (Auto) 2.7 Lymph # (Auto) 1.5 [place] # (Auto) 0.5 Eos # (Auto) 0.2 Baso # (Auto) 0.0 Abs Immat Gran (auto) 0.01 Imm/Tot Granulo (auto) 0.2 Sodium 143 Potassium 3.8 Chloride 106 Carbon Dioxide 29.2 Anion Gap 11.6 BUN 13.0 Creatinine 0.60 Est GFR ( Amer) >60 Est GFR (Non-Af Amer) >60 BUN/Creatinine Ratio 21.7 Glucose 91 Calcium 9.3 Total Bilirubin 0.3 AST 41 H ALT 86 H Alkaline Phosphatase 80 Total Protein 6.1 L Albumin 3.2 L Globulin 2.9 Albumin/Globulin Ratio 1.1 Amylase 110 Lipase 50.0 Discharge Plan Discharge Disposition: Home, Self-Care Discharge Medications: Continued aspirin 81 mg tablet,delayed release (DR/EC) 81 mg PO BEDTIME atorvastatin 20 mg tablet 20 mg PO BEDTIME cevimeline 30 mg capsule 30 mg PO TID citalopram 40 mg tablet 40 mg PO DAILY fluticasone propionate 50 mcg/actuation spray,suspension 2 spray INTRANASAL BID hydrochlorothiazide 12.5 mg tablet 12.5 mg PO DAILY rabeprazole 20 mg tablet,delayed release (DR/EC) 20 mg PO BID tamsulosin 0.4 mg capsule 0.4 mg PO DAILY tramadol 50 mg tablet 50 mg PO Q6H PRN (Reason: pain) Print Language: Bel[place]ian Patient Instructions: Pancreatitis (DC) Forms: Portal Instructions Follow Up Appointments: Call Dr Dejesus's office Sunday for follow up this week [phone]
--- NOTE | 2024-01-28 14:14 | CM.DCFOLLOWU ---
Person spoke with: patient How are you feeling? still some pain How is your pain? little pain, she voiced she has tramadol and that is helping Did you understand your discharge instructions? yes Do you have any questions about your discharge instructions? no Were you given any prescriptions at discharge? no Were you able to get your prescriptions filled? N/A Do you understand how to take your medications as ordered? yes Do you have any questions about your follow up appointment and do you plan to keep your follow up appointment? no questions, will try to call Dr. Dejesus's office again tomorrow Is there anything else that you would like to discuss? no Questions/Comments/Concerns/Other: N/A
== END 2024-01-27 14:57 | disposition home or self-care (01) | DRG 439 ==
PROVIDERS: Admitting Provider Family Medicine; PCP Family Medicine; Visit Provider Family Medicine
DX: K85.90 Acute pancreatitis without necrosis or infection, unspecified (principal); N39.0 Urinary tract infection, site not specified; I10 Essential (primary) hypertension; E78.00 Pure hypercholesterolemia, unspecified; F32.A Depression, unspecified; R10.0 Acute abdomen; E86.0 Dehydration; R68.0 Hypothermia, not associated with low environmental temperature; R79.89 Other specified abnormal findings of blood chemistry; Z98.890 Other specified postprocedural states; Z98.84 Bariatric surgery status; Z95.5 Presence of coronary angioplasty implant and graft; Z95.1 Presence of aortocoronary bypass graft; Z90.49 Acquired absence of other specified parts of digestive tract; Z79.82 Long term (current) use of aspirin; Z79.899 Other long term (current) drug therapy
CPT/HCPCS: 36415; 74177; 76705; 80053; 80061; 81001; 82140; 82150; 83605; 83690; 83735; 85025; 87040; 87086; 94667; 94668; 96365; 96366; 96367; 96375; 96376; Q9967

== ENCOUNTER 2024-01-31 10:39 | Outpatient (OUT) | payer BC, SELFPAY ==
--- OUTSIDE RECORDS SUMMARY | 2024-01-31 11:03 | XMS_ITS | CCD ---
Author Organization [facility] Care Team Providers Care [employer] T[employer] Name Role Phone UNKNOWN, PROVIDER Unavailable Unavailable ASHLEY DEJESUS Unavailable Unavailable UNKNOWN, PROVIDER Unavailable Unavailable ASHLEY DEJESUS Unavailable Unavailable Ashely Dejesus Primary Care Provider [phone] Ashley Dejesus Unavailable Unavailable Unavailable Ashley Dejesus MD Primary Care Provider [phone] Unavailable Unavailable Ashley Dejesus Primary Care Physician DR CELSO GARIBAY Admitting Unavailclaire GARIBAY, DR CELSO Orozco Attending Unavailclaire DEJESUS, DR RAMIREZ Primary Care Unavailable KELLY, DR CELSO Orozco Consulting Unavailclaire DEJESUS, DR RAMIREZ Primary Care Unavailable DR ASHLEY DEJESUS Admitting Unavailable SEB, DR RAMIREZ Attending Unavailable DR ASHLEY DEJESUS Consulting Unavailable ZIEBER, DR RONAN Guzman Consulting Unavailable GENTRY HUERTA Consulting Unavailable HAYES, INGA Consulting Unavailable MISC, DR MORALES Admitting Unavailable MISC, DR MORALES Attending Unavailable DR ASHLEY DEJESUS Primary Care Unavailable DR ASHLEY DEJESUS Consulting Unavailable DR ASHLEY DEJESUS Admitting Unavailable DR ASHLEY DEJESUS Attending Unavailable DR ASHLEY DEJESUS Primary Care Unavailable DR ASHLEY DEJESUS Consulting Unavailable SEB, DR RAMIREZ Admitting Unavailable SEB, DR RAMIREZ Attending Unavailable DR ASHLEY DEJESUS Primary Care Unavailable DR ASHLEY DEJESUS Consulting Unavailable MD Ashley Dejesus Primary Care Provider [phone] MD Evert Bruno Attending Provider Evert Bruno Unavailable MD Ashley Dejesus Primary Care Provider [phone] MD Evert Bruno Attending Provider Asaad, Imad Attending Unavailable Asaad, Imad Admitting Unavailable HoAshley jara M Primary Care Unavailable Asaad, Imad Attending Unavailable Asaad, Imad Admitting Unavailable HoAshley jara Primary Care Unavailable Asaad, Imad Attending Unavailable Asaad, Imad Admitting Unavailable HoyAshley M Primary Care Unavailable Asaad, Imad Attending Unavailable HoAshley jara M Primary Care Unavailable Asaad, Imad Admitting Unavailable Ashley Dejesus MD Primary Care Provider [phone] GABY CHAHAL Admitting Unavail able GABY CHAHAL Attending Unavail able ASHLEY DEJESUS Primary Care Unavailable ASHLEY DEJESUS Primary Care Unavailable Ashley Dejesus MD Primary Care Provider [phone] CELSO GARIBAY Attending Unavailable ASHLEY DEJESUS Primary Care Unavailable ALINA JAVIER Attending Unavailable STEPHANIE BERGER Attending Unavailable DEACON DEJESUSLAS Tyree Referring Unavailable SEB ASHLEY M Primary Care Unavailable JENNIFER MARTINO Attending Unavailable Allergies Allergy Classification Reported Allergen(s) Allergy Type Date of Onset Reaction(s) Facility (20 sources) Baclofen; 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: [Baclofen TABS] Drug Allergy 017 Other (See Comments), Shortness of breath [place] (14 sources) Latex; 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: [LATEX] Propensity to adverse reactions to drug 006 Anaphylaxis, Shortness Of Breath, Anaphylaxis (disorder) [place] (9 sources) Penicillins; 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: [penicillins] Propensity to adverse reactions to drug 006 Hives, Anaphylaxis (disorder) [place] (3 sources) rosuvastatin Drug Allergy 019 [place] (19 sources) Sulfamethoxazole / Trimethoprim; 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: [Bactrim TABS] Drug Allergy 019 Hives [place] (11 sources) natural latex rubber Allergy to substance (finding) Shortness of breath [facility] 250 DO Work Phone: (11 sources) Penicillins; 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: [Penicillins] Allergy to drug (finding) Rash [facility] 250 DO Work Phone: (13 sources) rosuvastatin; 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: [Crestor TABS] Drug Allergy 023 Elevated liver enzymes level (finding), Other [facility] (13 sources) Sulfonamides (Antibiotic); 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: [Sulfa Drugs] Allergy to drug (finding) [facility] (7 sources) levoFLOXacin; 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: [levofloxacin] Drug Allergy 017 Other (See Comments), Candidiasis (disorder) [employer] Work Phone: (3 sources) Phenazopyridine; 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: [PHENAZOPYRIDINE HCL] Drug Allergy [facility] Work Phone: (2 sources) Simvastatin Drug Allergy 006 [employer] Phone: (2 sources) Sulfonamides (Antibiotic) Propensity to adverse reactions to drug 022 Other (See Comments) [facility] (3 sources) Tobramycin; 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: [tobramycin] Drug Allergy 023 Eruption of skin (disorder) [facility] (1 source) Baclofen Drug Allergy [facility] (1 source) Latex Drug allergy (disorder) [facility] (5 sources) levoFLOXacin; 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: [Levaquin] Drug Allergy thrush [facility] (1 source) Penicillins Drug allergy (disorder) [facility] (1 source) rosuvastatin Drug Allergy [facility] (1 source) Sulfonamides (Antibiotic) Drug allergy (disorder) [facility] (7 sources) rosuvastatin; 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: [rosuvastatin] Drug Allergy 017 Gastrointestinal Upset [facility] (4 sources) Sulfamethoxazole; 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: [sulfamethoxazole] Drug Allergy [facility] (5 sources) Trimethoprim; 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: [trimethoprim] Drug Allergy 023 [facility] (4 sources) Fenofibrate Drug Allergy 023 ([place]) 08/08/2011 [facility] (3 sources) Penicillin Drug Allergy ([place]) 08/08/2011 [employer] Other (4 sources) Substance with sulfonamide structure and antibacterial mechanism of action (substance) Drug allergy 023 Shortness of breath [employer] Other (1 source) Baclofen Drug Allergy 023 [facility] (1 source) Latex Drug allergy (disorder) [facility] (1 source) levoFLOXacin Drug Allergy 023 [facility] (1 source) Penicillins Drug allergy (disorder) 023 [facility] (2 sources) Penicillins Propensity to adverse reactions to drug Hives, Rash [facility] (1 source) Tobramycin Drug Allergy 023 Rash [facility] (2 sources) Sulfonamides (Antibiotic); 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: [SULFA (SULFONAMIDE ANTIBIOTICS)] Propensity to adverse reactions to drug (disorder) [facility] 3 Repository (1 source) Fenofibrate; 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: [FENOFIBRATE [...] Ordered Start: 04-17-2018 take 1 capsule by [facility] four times daily cevimeline (Evoxac) [...] mouth two times weekly Vitamin D (Ergocalciferol) 82717 UNIT 1 capsule Orally TWICE a Week [...] Start: 04-30-2020 fluticasone 0. 05 mg/inh Nasal [place] Refill(s) 0 Start Date: 04/30/20 Status: Ordered [...] # 90 tab(s), Refills(s) 3, Pharmacy: [facility], 160, cm, 05/27/21 8:19:00 [...] mouth 2 times a day. 0 Active Afmrgvexgeov-Kgk-Hts n-Fa-Vit K (Bariatric Multivitamins) 45 mg iron- 800 mcg-120 mcg Capsule (3 sources) Start: 3 take 1 capsule by mouth twice daily Multivitamin-Min- Iron-Fa-Vit K (Bariatric Multivitamins) 45 mg iron- 800 mcg-120 mcg Capsule Active 1 CAP PO Twice daily November 01, 2022 1:00am Start: 11-01-2022 take 1 capsule by [facility] twice daily Mundqblabqvi-Xtz-Avqx-Fa-Vit K (Bariatri c Multivitamins) 45 mg iron- [...] tablet Indications: Atherosclerosis of coronary artery of [place] heart without angina pectoris, unspecified vessel or [...] April 22, 2018 12:01am polyethylene glycol 3350 596516 mg / potassium chloride 2970 mg / sodium bicarbonate 6740 mg / sodium chloride 5860 mg / sodium sulfate 65583 mg powder for oral solution (3 sources) [...] # 180 cap(s), Refills(s) 3, Pharmacy: [facility], 160, cm, 05/27/21 8:19:00 EDT, Height/Length Dosing, 61, kg, 05/27/21 8:19:00 EDT, Weight Dosing Start Date: 03/14/22 Stop Date: 03/09/23 Status: Ordered Start: 04-17-2018 take 1 capsule by [facility] once daily tamsulosin (Flomax) 0.4 mg 24 hr capsule Take 1 capsule (0.4 mg) by mouth once daily. 0 10/26/2020 Active traMADol hydrochloride 50 mg oral tablet (6 sources) Opioid Agonist Start: 11-01-2022 take 50 mg by mouth three times daily Tramadol Active 50 MG PO Three times daily November 01, 2022 1:00am take 1 tablet by [facility] every twenty-four hours traMADol HCl 50 [...] ascorbic acid 226 mg / beta carotene 07371 unt / cuprous oxide 0.8 mg / [...] daily Quantity: 90 Refills: 3 Ordered: 10-Oct-2022 Celso Garibay DO Start : 05-Oct-2022 Active Start: [...] / neomycin 3.5 mg/ml / polymyxin b 26704 unt/ml ophthalmic suspension (3 sources) Aminoglycoside Antibacterial, Polymyxin-class Antibacterial, Corticosteroid Start: 06-13-2021 take 2 drop(s) into the eye(s) four times daily Neomycin-Polymyxin- HC 3.5-81865-5 Ophthalmic Suspension instill 2 drops INTO AFFECTED [...] sources) Coronary atherosclerosis; 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: [Coronary atherosclerosis of knik coronary artery] Onset: 2 Chronic Coronary atherosclerosis [...] 3 06-18-2023 Chronic Other aftercare (1 source) jail (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; 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: [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 USE OF ASPIRIN] Onset: 3 Episodic Other aftercare (1 source) Other senior living (current) drug therapy; 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: [OTH USP CURRENT DRUG THERAPY] Onset: 3 Episodic Other [...] Unclassified (1 source) Athscl heart disease of [place] coronary artery w/o ang pctrs / I25.10(ICD-9) [...] Test Name Value Interpretation Reference Range Facility Lab Reportson 01-23-2024 Lab Reports [id number] #1.00TIFF [facility] Lab Reports [id number] #1.00TIFF Normal [facility] Reportson 01-22-2024 Lab Reports [id number] #1.00TIFF [facility] Lab Reports [id number] #1.00TIFF [facility] Lab Reports [id number] #1.00TIFF [facility] RAD - MISCon 01-22-2024 RAD - MISC [id number] #1.00TIFF Normal [facility] Surgical Pathology Reporton 06-18-2023 Surgical Pathology Report (NOTE) Path Number: [id number] -- Diagnosis -- ENDOMETRIAL CURETTINGS: -BENIGN ENDOMETRIAL [...] Microscopic Description Microscopic examination performed. Processing Lab: [address] [address] Interpretation Performed at [address] SURGICAL PATHOLOGY CONSULTATION Patient Name: JOSE ALBERTO SALEEM Med Rec: [id number] [facility] ANATOMIC PATHOLOGY [address] [place] [address]. [place], [place] [address] Normal [facility] US NON OB TRANSVAGINALon US NON OB [...] calcifications noted No free fluid Interpreted by: Gbay Tello DO Signed by: Gaby Tello DO 06/05/23 Final result Normal [facility] CHAY Antinuclear Antibodieson 12-12-2022 Antinuclear Abs, IFA Negative Normal . [facility] Comment on above: Order Comment: Reaso n for Exam Elevated liver function tests Result Comment: Nega tive <1:80 Borderline 1:80 Positive >1:80 ICAP nomenclature: AC-0 For more information about Hep-2 cell patterns use ANApatterns.org, the official website for the International Consensus on Antinuclear Antibody (CHAY) Patterns (ICAP). Performed at: [address] [id number] Bread Molder: Afshin Martinez PhD, Phone: [phone] Performed By: #### H AABT, SMAB, HCV RX PCR, HBSAG, CERULOP, HBCAB, ALPHA PHEN, IGG, MITOM2, HBSAB, CHAY, L-K MICRO #### [facility] , #### ABDIRASHID #### [address] Vlrxq-6-Xaftpegzqse Phenotyp anthony 12-12-2022 Alpha 1 Anti-Trypsin 172 mg/dL Normal 101-187 [facility] Comment on above: Order Comment: Reaso n for Exam Elevated liver function tests Performed By: #### H AABT, SMAB, HCV RX PCR, HBSAG, CERULOP, HBCAB, ALPHA PHEN, IGG, MITOM2, HBSAB, CHAY, L-K MICRO #### [facility] , #### ABDIRASHID #### [address] Phenotype (P1) MM Normal . [facility] Comment on above: Order Comment: [...] Ranges used to confirm phenotype. Performed at: [facility] [address] [id number] Bread Molder: Afshin Martinez PhD, Phone: [phone] Performed at: [facility] [address] [id number] Bread Molder: Toni Guidry MD, Phone: [phone] Performed By: #### H AABT, SMAB, HCV RX PCR, HBSAG, CERULOP, HBCAB, ALPHA PHEN, IGG, MITOM2, HBSAB, CHAY, L-K MICRO #### [facility] , #### ABDIRASHID #### [address] Ceruloplasminon 12-12-2022 Ceruloplasmin 30.6 mg/dL Normal 19.0-39.0 [facility] Comment on above: Order Comment: Reaso n for Exam Elevated liver function tests Performed By: #### H AABT, SMAB, HCV RX PCR, HBSAG, CERULOP, HBCAB, ALPHA PHEN, IGG, MITOM2, HBSAB, CHAY, L-K MICRO #### [facility] , #### ABDIRASHID #### [address] Ceruloplasmin 30.6 mg/dL 19.0-39.0 mg/dL [employer] Other Ferritinon 12-12-2022 Ferritin [Mass/Vol] 43.8 ng/mL Normal 11.0-306.8 [facility] Comment on above: Order Comment: Reaso n for Exam Elevated liver function tests Result Comment: PERF ORMED BY: [place] [address] PATHOLOGIST PHYSICS TECHNICAL OFFICER JULISSA GA M.D. Performed By: #### H AABT, SMAB, HCV RX PCR, HBSAG, CERULOP, HBCAB, ALPHA PHEN, IGG, MITOM2, HBSAB, CHAY, L-K MICRO #### [facility] , #### ABDIRASHID #### [facility] [address] Ferritin [Mass/Vol] 43.5993345 ng/mL Normal 11.0 -306.8 ng/mL [employer] Other Hep C Ab wRfx to Qnt PCRon 0 12-12-2022 Hepatitis C Virus Antibody Non-Reactive Normal Non Reactive [facility] Comment on above: Order Comment: Reaso n for Exam Elevated liver function tests Performed By: #### H AABT, SMAB, HCV RX PCR, HBSAG, CERULOP, HBCAB, ALPHA PHEN, IGG, MITOM2, HBSAB, CHAY, L-K MICRO #### [facility] , #### ABDIRASHID #### [facility] [address] Interpretation Hepatitis C Normal . [facility] Comment on above: Order Comment: [...] MICRO #### [facility] , #### ABDIRASHID #### [facility] [address] [place] [address] Hepatitis A Antibody Totalon 12-12-2022 Hepatitis A Antibody Total Negative Normal Negative [facility] Comment on above: Order Comment: Reaso n for Exam Elevated liver function tests Result Comment: Perf ormed at: - [facility] [address] [id number] Bread Molder: Afshin Martinez PhD, Phone: [phone] Performed By: #### H AABT, SMAB, HCV RX PCR, HBSAG, CERULOP, HBCAB, ALPHA PHEN, IGG, MITOM2, HBSAB, CHAY, L-K MICRO #### [facility] , #### ABDIRASHID #### [facility] [address] [place] [address] Hepatitis A Antibody Total Negative . [facility] [employer] Other Hepatitis B Core Antibodyon 12-12-2022 Hepatitis B Core Antibody Negative Normal Negative [facility] Comment on above: Order Comment: Reaso n for Exam Elevated liver function tests Performed By: #### H AABT, SMAB, HCV RX PCR, HBSAG, CERULOP, HBCAB, ALPHA PHEN, IGG, MITOM2, HBSAB, CHAY, L-K MICRO #### [facility] , #### ABDIRASHID #### [address] Hepatitis B Surface Antibody on 12-12-2022 Hepatitis B Surface Antibody Non-Reactive Normal . [facility] Comment on above: Order Comment: Reaso n for Exam Elevated liver function tests Result Comment: Non Reactive: Inconsistent with immunity, less than 10 mIU/mL Reactive: Consistent with immunity, greater than 9.9 mIU/mL Performed By: #### H AABT, SMAB, HCV RX PCR, HBSAG, CERULOP, HBCAB, ALPHA PHEN, IGG, MITOM2, HBSAB, CHAY, L-K MICRO #### [facility] , #### ABDIRASHID #### [address] Hepatitis B Surface Antibody Non-Reactive Non Reactive [employer] Other Hepatitis B Surface Antigeno n 12-12-2022 HBsAg Screen Negative Normal Negative [facility] Comment on above: Order Comment: Reaso n for Exam Elevated liver function tests Result Comment: PERF ORMED BY: [place] [address] PATHOLOGIST PHYSICS TECHNICAL OFFICER JULISSA GA M.D. Performed By: #### H AABT, SMAB, HCV RX PCR, HBSAG, CERULOP, HBCAB, ALPHA PHEN, IGG, MITOM2, HBSAB, CHAY, L-K MICRO #### [facility] , #### ABDIRASHID #### [place] [id number] [place] Immunoglobulin Javi Immunoglobulin G 823 mg/dL Normal 586-1602 [facility] Comment on above: Order Comment: Reaso n for Exam Elevated liver function tests Result Comment: Perf ormed at: [address] [id number] Bread Molder: Afshin Martinez PhD, Phone: [phone] Performed By: #### H AABT, SMAB, HCV RX PCR, HBSAG, CERULOP, HBCAB, ALPHA PHEN, IGG, MITOM2, HBSAB, CHAY, L-K MICRO #### [facility] , #### ABDIRASHID #### [address] Immunoglobulin G 823 mg/dL 586-1602 mg/dL [employer] Other Liver-Kidney Microsomal Abon 12-12-2022 Liver-Kidney Microsomal Ab 1.1 Normal 0.0-20.0 [facility] Comment on above: Order Comment: Reaso n for Exam Elevated liver function tests Result Comment: Nega tive 0.0 - 20.0 Equivocal 20.1 - 24.9 Positive >24.9 LKM type 1 antibodies are detected in patients with autoimmune hepatitis type 2 and in up to 8% of patients with chronic HCV infection. Performed at: [address] [id number] Bread Molder: Afshin Martinez PhD, Phone: [phone] PERFORMED BY: [place] [address] PATHOLOGIST PHYSICS TECHNICAL OFFICER JULISSA GA M.D. Performed By: #### H AABT, SMAB, HCV RX PCR, HBSAG, CERULOP, HBCAB, ALPHA PHEN, IGG, MITOM2, HBSAB, CHAY, L-K MICRO #### [facility] , #### ABDIRASHID #### [facility] [address] [place] [address] Liver-Kidney Microsomal Ab 1.1 0.0-20.0 [employer] Other Mitochondrial (M2) Antibodyo n 12-12-2022 Mitochondrial (M2) Antibody <20.0 Normal 0.0-20.0 [facility] Comment on above: Order Comment: Reaso n for Exam Elevated liver function tests Result Comment: Nega tive 0.0 - 20.0 Equivocal 20.1 - 24.9 Positive >24.9 Mitochondrial (M2) Antibodies are found in 90-96% of patients with primary biliary cirrhosis. Performed at: [facility] [address] [id number] Bread Molder: Afshin Martinez PhD, Phone: [phone] Performed By: #### H AABT, SMAB, HCV RX PCR, HBSAG, CERULOP, HBCAB, ALPHA PHEN, IGG, MITOM2, HBSAB, CHAY, L-K MICRO #### [facility] , #### ABDIRASHID #### [address] Mitochondrial (M2) Antibody <20.0 0.0-20.0 [employer] Other Smooth Muscle Antibodyon Smooth Muscle Antibody 5 Normal 0-19 [facility] Comment on above: Order Comment: Reaso n [...] MICRO #### [facility] , #### ABDIRASHID #### [facility] [address] [place] [address] [place] Smooth Muscle Antibody 5 0-19 No rt [employer] Other MR MRCPon 11-10-2022 MR MRCP [facility] [place] [address] [place] [address] MRI Report Signed Patient: Jose Alberto Saleem MR#: [id number] : 1965 Acct:[id number] Age/Sex: 57 / F ADM Date: 11/10/22 Loc: MR Room: Type: [facility] Attending Dr: Evert Bruno MD Copies [...] There is no dilated bowel within the wjvqk-qz-luuj. MR/MR MRCP IMPRESSION: SLIGHTLY PROMINENT COMMON DUCT, WITHOUT CHOLEDOCHOLITHIASIS. THIS MAY RELATE TO PREVIOUS CHOLECYSTECTOMY. RIGHT RENAL CYSTS. NO OTHER SIGNIFICANT MRI FINDINGS. Impression dictated by: Thelma Wick M.D.11/10/2022 7:00 PM Dictation Location: [place] [address] Transcribed By: [facility] 11/10/221899 Dictated By: Thelma Wick MD 11/10/221849 Signed By: 11/10/221899 [facility] MR MRCP [facility] [employer] Other MR MRCP [facility] [employer] Other MR MRCP [address] [place] [address] [employer] Other MR MRCP [address] [employer] Other MR MRCP MRI Report [employer] Other MR MRCP Signed [employer] Other MR MRCP Patient: Jose Alberto Saleem MR#: [id number] [employer] Other MR MRCP 571 [employer] Other MR MRCP : 1965 Acct:[id number] [employer] Other MR MRCP Age/Sex: 57 / F ADM Date: 11/10/22 [employer] Other MR MRCP Loc: Room: Type: [facility] [employer] Other MR MRCP Attending Dr: Evert Bruno MD [employer] Other MR MRCP Copies to: Evert Bruno MD [employer] Other MR MRCP Ordering Provider: Evert Bruno MD [employer] Other MR MRCP Date of Service: 11/10/22 [employer] Other MR MRCP MR/MR MRCP: Abdominal pain;Common bile duct dilatation;Elevated liver en [employer] Other MR MRCP MRCP [employer] Other MR MRCP CLINICAL DATA: Elevated lipase. Abnormal outside abdominal CT [employer] Other MR MRCP COMPARISON: CT abdomen 10/16/2022 [employer] Other MR MRCP Multiecho imaging of the abdomen was performed along with radial imaging of the biliary tree. [employer] Other MR MRCP The gallbladder surgically absent. There is no significant intrahepatic biliary dilatation. The [employer] Other MR MRCP common duct is slightly prominent measuring up to 6 mm. It tapers toward the ampulla. No in [employer] Other MR MRCP traluminal filling defects are identified to suggest choledocholithiasis. The pancreatic duct is [employer] Other MR MRCP also borderline prominent measuring 2 - 3 mm. No intrahepatic masses are identified. No pancreatic [facility] [employer] Other MR MRCP abnormalities are noted. The spleen and adrenal glands are within normal limits. There is no [employer] Other MR MRCP hydronephrosis. There are right renal cysts. There is no aortic aneurysm. No adenopathy or [employer] Other MR MRCP ascites is seen. There is no dilated bowel within the kcjdc-ro-oxnm. [employer] Other MR MRCP MR/MR MRCP [facility] [employer] Other MR MRCP IMPRESSION: [employer] Other MR MRCP SLIGHTLY PROMINENT COMMON DUCT, WITHOUT CHOLEDOCHOLITHIASIS. THIS MAY RELATE TO PREVIOUS [facility] [employer] Other MR MRCP CHOLECYSTECTOMY. [facility] [employer] Other MR MRCP RIGHT RENAL CYSTS. [employer] Other MR MRCP NO OTHER SIGNIFICANT MRI FINDINGS. [employer] Other MR MRCP Impression dictated by: Thelma Wick M.D.11/10/2022 7:00 PM [employer] Other MR MRCP Dictation Location: [place] [address] [facility] [employer] Other MR MRCP Transcribed By: BEN 11/10/22 1900 [employer] Other MR MRCP Dictated By: Thelma Wick MD 11/10/22 1850 [employer] Other MR MRCP Signed By: [employer] Other MRCP 11/10/22 1900 [employer] Other Albumin [Mass/volume] in Ser um or PlasmaOrdered By: Evert Bruno on 11-01-2022 Albumin [Mass/Vol] 4.0 g/dL 3.2-5.5 [facility] Direct bilirubin measurement Ordered By: Imsara Bruno on 11-01-2022 Bilirubin.direct [Mass/Vol] 0.1 mg/dL 0.0-0.4 [facility] Globulin Calc (S) [Mass/Vol] Ordered By: Imsara Bruno on 11-01-2022 Globulin (S) [Mass/Vol] 2.5 g/dL [facility] Hepatic Panelon 11-01-2022 Albumin [Mass/Vol] 4.763125 g/dL Normal 3.2-5.5 g/dL [employer] Other Bilirubin [Mass/Vol] 0.2494260 mg/dL Normal 0.3- 1.2 mg/dL [employer] Other Bilirubin.indirect [Mass/Vol] 0.1536476 mg/dL Normal 0.0-0.4 mg/dL [employer] Other Protein [Mass/Vol] 6.179201 g/dL Normal 6.1-7.9 g/dL [facility] [employer] Other Hepatic Panel 0.5 mg/dL [employer] Other Hepatic Panel 2.5 g/dL [employer] Other Albumin [Mass/Vol] 4.0 g/dL Normal 3.2-5.5 [facility] Comment on above: Order Comment: Reaso n for Exam Elevated liver enzymes Performed By: #### H EPATIC #### [address] Albumin/Globulin [Mass ratio] 1.6 {ratio} Normal [facility] Comment on above: Order Comment: Reaso n for Exam Elevated liver enzymes Performed By: #### H EPATIC #### [facility] [address] [place] [address] [place] ALP [Catalytic activity/Vol] 93 U/L High 32-92 [facility] Comment on above: Order Comment: Reaso n for Exam Elevated liver enzymes Result Comment: PERF ORMED BY: [place] [address] PATHOLOGIST PHYSICS TECHNICAL OFFICER JULISSA GA M.D. Performed By: #### H EPATIC #### [facility] [address] [place] [id number] [place] ALT [Catalytic activity/Vol] 94 U/L High 10-60 [employer] Other Comment on above: Order Comment: Reaso n for Exam Elevated liver enzymes Performed By: #### H EPATIC #### [facility] [address] [place], [place] [id number] [place] AST [Catalytic activity/Vol] 66 U/L High 10-42 [facility] Comment on above: Order Comment: Reaso n for Exam Elevated liver enzymes Performed By: #### H EPATIC #### [facility] [address] [place], [place] [id number] [place] Bilirubin [Mass/Vol] 0.6 mg/dL Normal 0.3-1.2 [facility] Comment on above: Order Comment: Reaso n for Exam Elevated liver enzymes Performed By: #### H EPATIC #### [facility] [address] [place], [place] [id number] [place] Bilirubin,Indirect 0.5 mg/dL Normal [facility] Comment on above: Order Comment: Reaso n for Exam Elevated liver enzymes Performed By: #### H EPATIC #### [facility] [address] [place], [place] [id number] [place] Bilirubin.indirect [Mass/Vol] 0.1 mg/dL Normal 0.0-0.4 [facility] Comment on above: Order Comment: Reaso n for Exam Elevated liver enzymes Performed By: #### H EPATIC #### [facility] [address] [place], [place] [id number] [place] Globulin (S) [Mass/Vol] 2.5 g/dL Normal [facility] Comment on above: Order Comment: Reaso n for Exam Elevated liver enzymes Performed By: #### H EPATIC #### [facility] [address] [id number] [facility] Protein [Mass/Vol] 6.5 g/dL Normal 6.1-7.9 [facility] Comment on above: Order Comment: Reaso n for Exam Elevated liver enzymes Performed By: #### H EPATIC #### [facility] [address] [id number] [place] Protein [Mass/volume] in Ser um or PlasmaOrdered By: Imad Asaad on 11-01-2022 Protein [Mass/Vol] 6.5 g/dL 6.1-7.9 [facility] Serum or plasma alanine li otransferase measurement without P-5'-P (enzymatic activiOrdered By: Imad Asaad on 11-01-2022 ALT No additional P-5'-P [Catalytic activity/Vol] 94 U/L 10-60 [facility] Serum or plasma albumin/glob ulin mass ratioOrdered By: Imad Asaad on 11-01-2022 Albumin/Globulin [Mass ratio] 1.6 {ratio} [facility] Serum or plasma alkaline monster sphatase measurement (enzymatic activity/volume)Ordered By: Imad Asaad on 11-01-2022 ALP [Catalytic activity/Vol] 93 U/L 32-92 [facility] Serum or plasma aspartate am inotransferase measurement (enzymatic activity/volume)Ordered By: Imad Asaad on 11-01-2022 AST [Catalytic activity/Vol] 66 U/L 10-42 [facility] Serum or plasma non-glucuron idated bilirubin measurement (mass/volume)Ordered By: Imad Asaad on 11-01-2022 Bilirubin.indirect [Mass/Vol] 0.5 mg/dL [facility] Serum or plasma total biliru bin measurement (mass/volume)Ordered By: Imad Asaad on 11-01-2022 Bilirubin [Mass/Vol] 0.6 mg/dL 0.3-1.2 [facility] CT ABDOMEN WO/W CONon 2022 CT [...] JAE WILSON Date: 2022-10-17 08:23 Normal [facility] AMMONIAon 10-09-2022 Ammonia (P) [Moles/Vol] 10 umol/L Critically low 11-32 [facility] Comment on above: Performed By: #### A MY #### [facility] [address] [address] [address] Ayden Cam AMYLASEon 10-09-2022 Amylase [Catalytic activity/Vol] 144 U/L Critically high 25-115 [facility] Comment on above: Performed By: #### L IPA #### [facility] [address] [address] [address] Ayden Cam CBC AUTO DIFFon 10-09-2022 BASO # 0.0 103/ul Normal 0.0-0.1 [facility] Comment on above: Performed By: #### C BC #### [facility] [address] [address] [address] Ayden Cam Basophils/100 WBC (Bld) 0.2 % Normal 0.2-2.0 [facility] Comment on above: Performed By: #### C BC #### [facility] [address] [place] [address] Dr. Ayden Cam EO # 0.2 103/ul Normal 0.0-0.7 [facility] Comment on above: Performed By: #### C BC #### [facility] [address] [place] [address] Dr. Ayden Cam Eosinophils/100 WBC (Bld) 3.3 % Normal 0.9-7.0 [facility] Comment on above: Performed By: #### C BC #### [facility] [address] [place] [address] Dr. Ayden Cam Erythrocyte distribution width (RBC) [Ratio] 12.1 % Normal 11.0-15.0 [facility] Comment on above: Performed By: #### C BC #### [facility] [address] [place] [address] Dr. Ayden Cam Hematocrit (Bld) [Volume fraction] 40.0 % Normal 36.0-48.0 [facility] Comment on above: Performed By: #### C BC #### [facility] [address] [place] [address] Dr. Ayden Cam Hemoglobin (Bld) [Mass/Vol] 14.2 g/dL Normal 12.0-16.0 [facility] Comment on above: Performed By: #### C BC #### [facility] [address] [place] [address] Dr. Ayden Cam IG # 0.01 10e3/ul Normal 0.00-0.03 [facility] Comment on above: Performed By: #### C BC #### [facility] [address] [place] [address] Dr. Ayden Cam IG % 0.2 % Normal 0.0-0.5 [facility] Comment on above: Performed By: #### C BC #### [facility] [address] [place] [address] Dr. Ayden Cam LYMPH # 1.5 103/ul Normal 1.2-3.8 [facility] Comment on above: Performed By: #### C BC #### [facility] [address] [place] [address] Dr. Ayden Cam Lymphocytes/100 WBC (Bld) 24.2 % Normal 20.5-60.0 [facility] Comment on above: Performed By: #### C BC #### [facility] [address] [place] [address] Dr. Ayden Cam MANUAL DIFF REQ NO Normal [facility] Comment on above: Performed By: #### C BC #### [facility] [address] [place] [address] Dr. Ayden Cam MCH (RBC) [Entitic mass] 30.0 pg Normal 26.7-34.0 [facility] Comment on above: Performed By: #### C BC #### [facility] [address] [place] [address] Dr. Ayden Cam MCHC (RBC) [Mass/Vol] 35.5 g/dL Critically high 29.9-35.2 [facility] Comment on above: Performed By: #### C BC #### [facility] [address] [place] [address] Dr. Ayden Cam MCV (RBC) [Entitic vol] 84.4 fL Normal 81.0-99.0 [facility] Comment on above: Performed By: #### C BC #### [facility] [address] [place] [address] Dr. Ayden Cam MONO # 0.6 103/ul Normal 0.3-0.8 [facility] Comment on above: Performed By: #### C BC #### [facility] [address] [place] [address] Dr. Ayden Cam Monocytes/100 WBC (Bld) 10.3 % Normal 1.7-12.0 [facility] Comment on above: Performed By: #### C BC #### [facility] [address] [place] [address] Dr. Ayden Cam NEUT # 3.7 103/ul Normal 1.4-6.5 [facility] Comment on above: Performed By: #### C BC #### [facility] [address] [address] [address] Ayden Cam Neutrophils/100 WBC (Bld) 61.8 % Normal 43.0-75.0 [facility] Comment on above: Performed By: #### C BC #### [facility] [address] [place] [address] Dr. Ayden Cam Platelet mean volume (Bld) [Entitic vol] 9.0 fL Critically low 9.5-13.5 [facility] Comment on above: Performed By: #### C BC #### [facility] [address] [place] [address] Dr. Ayden Cam PLT 191 103/ul Normal 150-450 [facility] Comment on above: Performed By: #### C BC #### [facility] [address] [place] [address] Dr. Ayden Cam RBC 4.74 106/ul Normal 4.20-5.40 [facility] Comment on above: Performed By: #### C BC #### [facility] [address] [place] [address] Dr. Ayden Cam WBC 6.0 103/ul Normal 4.0-11.0 [facility] Comment on above: Performed By: #### C BC #### [facility] [address] [place] [address] Dr. Ayden Cam LIPASEon 10-09-2022 Lipase [Catalytic activity/Vol] 168.0 U/L Normal 73.0-393.0 [facility] Comment on above: Performed By: #### L ACT #### [facility] [address] [place] [address] Dr. Ayden Cam PROF 14(COMP METB)on 023 Albumin [Mass/Vol] 3.6 g/dL Normal 3.4-5.0 [facility] Comment on above: Performed By: #### L IPA #### [facility] [address] [place] [address] Dr. Ayden Cam Albumin/Globulin [Mass ratio] 1.1 {ratio} Normal [facility] Comment on above: Performed By: #### L IPA #### [facility] [address] [address] [address] Ayden Cam ALP [Catalytic activity/Vol] 93 U/L Normal 46-116 [facility] Comment on above: Performed By: #### L IPA #### [facility] [address] [address] [address] Ayden Cam ALT [Catalytic activity/Vol] 52 U/L Normal 14-59 [facility] Comment on above: Performed By: #### L IPA #### [facility] [address] [address] [address] Ayden Cam Anion gap [Moles/Vol] 10.2 mmol/L Normal [facility] Comment on above: Performed By: #### L IPA #### [facility] [address] [place] [address] Dr. Ayden Cam AST [Catalytic activity/Vol] 33 U/L Normal 15-37 [facility] Comment on above: Performed By: #### L IPA #### [facility] [address] [place] [address] Dr. Ayden Cam Bilirubin [Mass/Vol] 0.3 mg/dL Normal 0.2-1.0 [facility] Comment on above: Performed By: #### L IPA #### [facility] [address] [place] [address] Dr. yAden Cam Calcium [Mass/Vol] 9.4 mg/dL Normal 8.5-10.1 [facility] Comment on above: Performed By: #### L IPA #### [facility] [address] [address] [address] Ayden Cam Chloride [Moles/Vol] 99 mmol/L Normal 98-107 [facility] Comment on above: Performed By: #### L IPA #### [facility] [address] [place] [address] Dr. Ayden Cam CO2 [Moles/Vol] 33.7 mmol/L Critically high 21.0-32.0 [facility] Comment on above: Performed By: #### L IPA #### [facility] [address] [address] [address] Ayden Cam Creatinine [Mass/Vol] 0.62 mg/dL Normal 0.55-1.02 [facility] Comment on above: Performed By: #### L IPA #### [facility] [address] [address] [address] Ayden Cam EGFR-AF MALAGASY >60 Normal >=60 [facility] Comment on above: Performed By: #### L IPA #### [facility] [address] [address] [address] Ayden Cam EGFR-NON AF MALAGASY >60 Normal >=60 [facility] Comment on above: Performed By: #### L IPA #### [facility] [address] [place] [address] Dr. Ayden Cam Globulin (S) [Mass/Vol] 3.4 g/dL Normal [facility] Comment on above: Performed By: #### L IPA #### [facility] [address] [place] [address] Dr. Ayden Cam Glucose [Mass/Vol] 105 mg/dL Normal 74-106 [facility] Comment on above: Performed By: #### L IPA #### [facility] [address] [place] [address] Dr. Ayden Cam Potassium [Moles/Vol] 3.9 mmol/L Normal 3.5-5.1 [facility] Comment on above: Performed By: #### L IPA #### [facility] [address] [place] [address] Dr. Ayden Cam Protein [Mass/Vol] 7.0 g/dL Normal 6.4-8.2 [facility] Comment on above: Performed By: #### L IPA #### [facility] [address] [place] [address] Dr. Ayden Cam Sodium [Moles/Vol] 139 mmol/L Normal 136-145 [facility] Comment on above: Performed By: #### L IPA #### [facility] [address] [place] [address] Dr. Ayden Cam Urea nitrogen [Mass/Vol] 28.0 mg/dL Critically high 7.0-18.0 [facility] Comment on above: Performed By: #### L IPA #### [facility] [address] [place] [address] Dr. Ayden Cam Urea nitrogen/Creatinine [Mass ratio] 45.2 mg/mg Normal [facility] Comment on above: Performed By: #### L IPA #### [facility] [address] [place] [address] Dr. Ayden Cam AMMONIAon 10-06-2022 Ammonia (P) [Moles/Vol] 16 umol/L Normal 11-32 [facility] Comment on above: Performed By: #### A MM #### [facility] [address] [place] [address] Dr. Ayden Cam AMYLASEon 10-06-2022 Amylase [Catalytic activity/Vol] 189 U/L Critically high 25-115 [facility] Comment on above: Performed By: #### L IPA #### [facility] [address] [place] [address] Dr. Ayden Cam CBC AUTO DIFFon 10-06-2022 BASO # 0.0 103/ul Normal 0.0-0.1 [facility] Comment on above: Performed By: #### C BC #### [facility] [address] [place] [address] Dr. Ayden Cam Basophils/100 WBC (Bld) 0.2 % Normal 0.2-2.0 [facility] Comment on above: Performed By: #### C BC #### [facility] [address] [place] [address] Dr. Ayden Cam EO # 0.3 103/ul Normal 0.0-0.7 [facility] Comment on above: Performed By: #### C BC #### [facility] [address] [place] [address] Dr. Ayden Cam Eosinophils/100 WBC (Bld) 5.2 % Normal 0.9-7.0 [facility] Comment on above: Performed By: #### C BC #### [facility] [address] [place] [address] Dr. Ayden Cam Erythrocyte distribution width (RBC) [Ratio] 12.3 % Normal 11.0-15.0 [facility] Comment on above: Performed By: #### C BC #### [facility] [address] [place] [address] Dr. Ayden Cam Hematocrit (Bld) [Volume fraction] 36.9 % Normal 36.0-48.0 [facility] Comment on above: Performed By: #### C BC #### [facility] [address] [place] [address] Dr. Ayden Cam Hemoglobin (Bld) [Mass/Vol] 12.4 g/dL Normal 12.0-16.0 [facility] Comment on above: Performed By: #### C BC #### [facility] [address] [place] [address] Dr. Ayden Cam IG # 0.01 10e3/ul Normal 0.00-0.03 [facility] Comment on above: Performed By: #### C BC #### [facility] [address] [place] [address] Dr. Ayden Cam IG % 0.2 % Normal 0.0-0.5 [facility] Comment on above: Performed By: #### C BC #### [facility] [address] [place] [address] Dr. Ayden Cam LYMPH # 1.8 103/ul Normal 1.2-3.8 [facility] Comment on above: Performed By: #### C BC #### [facility] [address] [place] [address] Dr. Ayden Cam Lymphocytes/100 WBC (Bld) 31.3 % Normal 20.5-60.0 [facility] Comment on above: Performed By: #### C BC #### [facility] [address] [place] [address] Dr. Ayden Cam MANUAL DIFF REQ NO Normal [facility] Comment on above: Performed By: #### C BC #### [facility] [address] [place] [address] Dr. Ayden Cam MCH (RBC) [Entitic mass] 30.0 pg Normal 26.7-34.0 [facility] Comment on above: Performed By: #### C BC #### [facility] [address] [place] [address] Dr. Ayden Cam MCHC (RBC) [Mass/Vol] 33.6 g/dL Normal 29.9-35.2 [facility] Comment on above: Performed By: #### C BC #### [facility] [address] [place] [address] Dr. Ayden Cam MCV (RBC) [Entitic vol] 89.1 fL Normal 81.0-99.0 [facility] Comment on above: Performed By: #### C BC #### [facility] [address] [place] [address] Dr. Ayden Cam MONO # 0.6 103/ul Normal 0.3-0.8 [facility] Comment on above: Performed By: #### C BC #### [facility] [address] [place] [address] Dr. Ayden Cam Monocytes/100 WBC (Bld) 10.1 % Normal 1.7-12.0 [facility] Comment on above: Performed By: #### C BC #### [facility] [address] [place] [address] Dr. Ayden Cam NEUT # 3.1 103/ul Normal 1.4-6.5 [facility] Comment on above: Performed By: #### C BC #### [facility] [address] [place] [address] Dr. Ayden Cam Neutrophils/100 WBC (Bld) 53.0 % Normal 43.0-75.0 [facility] Comment on above: Performed By: #### C BC #### [facility] [address] [place] [address] Dr. Ayden Cam Platelet mean volume (Bld) [Entitic vol] 9.4 fL Critically low 9.5-13.5 [facility] Comment on above: Performed By: #### C BC #### [facility] [address] [place] [address] Dr. Ayden Cam PLT 153 103/ul Normal 150-450 [facility] Comment on above: Performed By: #### C BC #### [facility] [address] [place] [address] Dr. Ayden Cam RBC 4.14 106/ul Critically low 4.20-5.40 [facility] Comment on above: Performed By: #### C BC #### [facility] [address] [place] [address] Dr. Ayden Cam WBC 5.8 103/ul Normal 4.0-11.0 [facility] Comment on above: Performed By: #### C BC #### [facility] [address] [place] [address] Dr. Ayden Cam LIPASEon 10-06-2022 Lipase [Catalytic activity/Vol] 166.0 U/L Normal 73.0-393.0 [facility] Comment on above: Performed By: #### L IPA #### [facility] [address] [place] [address] Dr. Ayden Cam LIVER PROFILEon 10-06-2022 Albumin [Mass/Vol] 3.2 g/dL Critically low 3.4-5.0 [facility] Comment on above: Performed By: #### L IPA #### [facility] [address] [place] [address] Dr. Ayden Cam Albumin/Globulin [Mass ratio] 1.3 {ratio} Normal [facility] Comment on above: Performed By: #### L IPA #### [facility] [address] [place] [address] Dr. Ayden Cam ALP [Catalytic activity/Vol] 88 U/L Normal 46-116 [facility] Comment on above: Performed By: #### L IPA #### [facility] [address] [place] [address] Dr. Ayden Cam ALT [Catalytic activity/Vol] 66 U/L Critically high 14-59 [facility] Comment on above: Performed By: #### L IPA #### [facility] [address] [place] [address] Dr. Ayden Cam AST [Catalytic activity/Vol] 39 U/L Critically high 15-37 [facility] Comment on above: Performed By: #### L IPA #### [facility] [address] [place] [address] Dr. Ayden DUPREEI, CONJUGATED 0.1 mg/dL Normal 0.0-0.2 [facility] Comment on above: Performed By: #### L IPA #### [facility] [address] [place] [address] Dr. Ayden Cam Bilirubin [Mass/Vol] 0.4 mg/dL Normal 0.2-1.0 [facility] Comment on above: Performed By: #### L IPA #### [facility] [address] [place] [address] Dr. Ayden Cam Globulin (S) [Mass/Vol] 2.4 g/dL Normal [facility] Comment on above: Performed By: #### L IPA #### [facility] [address] [place] [address] Dr. Ayden Cam Protein [Mass/Vol] 5.6 g/dL Critically low 6.4-8.[address] [facility] Comment on above: Performed By: #### L IPA #### [facility] [address] [place] [address] Dr. Ayden Cam PROF CHEM 8 (BAS METB)on Anion gap [Moles/Vol] 6.8 mmol/L Normal [facility] Comment on above: Performed By: #### L IPA #### [facility] [address] [place] [address] Dr. Ayden Cam Calcium [Mass/Vol] 8.6 mg/dL Normal 8.5-10.1 [facility] Comment on above: Performed By: #### L IPA #### [facility] [address] [place] [address] Dr. Ayden Cma Chloride [Moles/Vol] 102 mmol/L Normal 98-107 [facility] Comment on above: Performed By: #### L IPA #### [facility] [address] [place] [address] Dr. Ayden Cam CO2 [Moles/Vol] 32.6 mmol/L Critically high 21.0-32.0 [facility] Comment on above: Performed By: #### L IPA #### [facility] [address] [address] [address] Ayden Cam Creatinine [Mass/Vol] 0.61 mg/dL Normal 0.55-1.02 [facility] Comment on above: Performed By: #### L IPA #### [facility] [address] [address] [address] Ayden Cam EGFR-AF MALAGASY >60 Normal >=60 [facility] Comment on above: Performed By: #### L IPA #### [facility] [address] [address] [address] Ayden Cam EGFR-NON AF MALAGASY >60 Normal >=60 [facility] Comment on above: Performed By: #### L IPA #### [facility] [address] [address] [address] Ayden Cam Glucose [Mass/Vol] 91 mg/dL Normal 74-106 [facility] Comment on above: Performed By: #### L IPA #### [facility] [address] [address] [address] Ayden Cam Potassium [Moles/Vol] 3.4 mmol/L Critically low 3.5-5.1 [facility] Comment on above: Performed By: #### L IPA #### [facility] [address] [address] [address] Ayden Cam Sodium [Moles/Vol] 138 mmol/L Normal 136-145 [facility] Comment on above: Performed By: #### L IPA #### [facility] [address] [address] [address] Ayden Cam Urea nitrogen [Mass/Vol] 13.0 mg/dL Normal 7.0-18.0 [facility] Comment on above: Performed By: #### L IPA #### [facility] [address] [address] [address] Ayden Cam Urea nitrogen/Creatinine [Mass ratio] 21.3 mg/mg Normal [facility] Comment on above: Performed By: #### L IPA #### [facility] [address] [place] [address] Dr. Ayden Cam AMMONIAon 10-05-2022 Ammonia (P) [Moles/Vol] 10 umol/L Critically low 11-32 [facility] Comment on above: Performed By: #### A MM #### [facility] [address] [place] [address] Dr. Ayden Cam AMYLASEon 10-05-2022 Amylase [Catalytic activity/Vol] 109 U/L Normal 25-115 [facility] Comment on above: Performed By: #### A MY #### [facility] [address] [place] [address] Dr. Ayden Cam CBC AUTO DIFFon 10-05-2022 BASO # 0.0 103/ul Normal 0.0-0.1 [facility] Comment on above: Performed By: #### L IPA #### [facility] [address] [place] [address] Dr. Ayden Cam Basophils/100 WBC (Bld) 0.3 % Normal 0.2-2.0 [facility] Comment on above: Performed By: #### L IPA #### [facility] [address] [place] [address] Dr. Ayden Cam EO # 0.3 103/ul Normal 0.0-0.7 [facility] Comment on above: Performed By: #### L IPA #### [facility] [address] [place] [address] Dr. Ayden Cam Eosinophils/100 WBC (Bld) 4.3 % Normal 0.9-7.0 [facility] Comment on above: Performed By: #### L IPA #### [facility] [address] [place] [address] Dr. Ayden Cam Erythrocyte distribution width (RBC) [Ratio] 12.2 % Normal 11.0-15.0 [facility] Comment on above: Performed By: #### L IPA #### [facility] [address] [place] [address] Dr. Ayden Cam Hematocrit (Bld) [Volume fraction] 38.9 % Normal 36.0-48.0 [facility] Comment on above: Performed By: #### L IPA #### [facility] [address] [place] [address] Dr. Ayden Cam Hemoglobin (Bld) [Mass/Vol] 12.8 g/dL Normal 12.0-16.0 [facility] Comment on above: Performed By: #### L IPA #### [facility] [address] [place] [address] Dr. Ayden Cam IG # 0.01 10e3/ul Normal 0.00-0.03 [facility] Comment on above: Performed By: #### L IPA #### [facility] [address] [place] [address] Dr. Ayden Cam IG % 0.2 % Normal 0.0-0.5 [facility] Comment on above: Performed By: #### L IPA #### [facility] [address] [place] [address] Dr. Ayden Cam LYMPH # 1.9 103/ul Normal 1.2-3.8 [facility] Comment on above: Performed By: #### L IPA #### [facility] [address] [place] [address] Dr. Ayden Cam Lymphocytes/100 WBC (Bld) 31.4 % Normal 20.5-60.0 [facility] Comment on above: Performed By: #### L IPA #### [facility] [address] [place] [address] Dr. Ayden Cam MANUAL DIFF REQ NO Normal [facility] Comment on above: Performed By: #### L IPA #### [facility] [address] [place] [address] Dr. Ayden Cam MCH (RBC) [Entitic mass] 29.6 pg Normal 26.7-34.0 [facility] Comment on above: Performed By: #### L IPA #### [facility] [address] [place] [address] Dr. Ayden Cam MCHC (RBC) [Mass/Vol] 32.9 g/dL Normal 29.9-35.2 [facility] Comment on above: Performed By: #### L IPA #### [facility] [address] [address] [address] Ayden Cam MCV (RBC) [Entitic vol] 89.8 fL Normal 81.0-99.0 [facility] Comment on above: Performed By: #### L IPA #### [facility] [address] [address] [address] Ayden Cam MONO # 0.6 103/ul Normal 0.3-0.8 [facility] Comment on above: Performed By: #### L IPA #### [facility] [address] [address] [address] Ayden Cam Monocytes/100 WBC (Bld) 10.1 % Normal 1.7-12.0 [facility] Comment on above: Performed By: #### L IPA #### [facility] [address] [place] [address] Dr. Ayden Cam NEUT # 3.2 103/ul Normal 1.4-6.5 [facility] Comment on above: Performed By: #### L IPA #### [facility] [address] [place] [address] Dr. Ayden Cam Neutrophils/100 WBC (Bld) 53.7 % Normal 43.0-75.0 [facility] Comment on above: Performed By: #### L IPA #### [facility] [address] [address] [address] Ayden Cam Platelet mean volume (Bld) [Entitic vol] 9.7 fL Normal 9.5-13.5 [facility] Comment on above: Performed By: #### L IPA #### [facility] [address] [address] [address] Ayden Cam PLT 168 103/ul Normal 150-450 [facility] Comment on above: Performed By: #### L IPA #### [facility] [address] [address] [address] Ayden Cam RBC 4.33 106/ul Normal 4.20-5.40 [facility] Comment on above: Performed By: #### L IPA #### [facility] [address] [place] [address] Dr. Ayden Cam WBC 6.0 103/ul Normal 4.0-11.0 [facility] Comment on above: Performed By: #### L IPA #### [facility] [address] [place] [address] Dr. Ayden Cma LIPASEon 10-05-2022 Lipase [Catalytic activity/Vol] 151.0 U/L Normal 73.0-393.0 [facility] Comment on above: Performed By: #### L IPA #### [facility] [address] [place] [address] Dr. Ayden Cam LIVER PROFILEon 10-05-2022 Albumin [Mass/Vol] 3.2 g/dL Critically low 3.4-5.0 [facility] Comment on above: Performed By: #### L ACT #### [facility] [address] [place] [address] Dr. Ayden Cam Albumin/Globulin [Mass ratio] 1.1 {ratio} Normal [facility] Comment on above: Performed By: #### L ACT #### [facility] [address] [place] [address] Dr. Ayden Cam ALP [Catalytic activity/Vol] 82 U/L Normal 46-116 [facility] Comment on above: Performed By: #### L ACT #### [facility] [address] [place] [address] Dr. Ayden Cam ALT [Catalytic activity/Vol] 70 U/L Critically high 14-59 [facility] Comment on above: Performed By: #### L ACT #### [facility] [address] [place] [address] Dr. Ayden Cam AST [Catalytic activity/Vol] 36 U/L Normal 15-37 [facility] Comment on above: Performed By: #### L ACT #### [facility] [address] [place] [address] Dr. Ayden Cam BILI, CONJUGATED 0.1 mg/dL Normal 0.0-0.2 [facility] Comment on above: Performed By: #### L ACT #### [facility] [address] [address] [address] Ayden Cam Bilirubin [Mass/Vol] 0.3 mg/dL Normal 0.2-1.0 [facility] Comment on above: Performed By: #### L ACT #### [facility] [address] [address] [address] Ayden Cam Globulin (S) [Mass/Vol] 3.0 g/dL Normal [facility] Comment on above: Performed By: #### L ACT #### [facility] [address] [address] [address] Ayden Cam Protein [Mass/Vol] 6.2 g/dL Critically low 6.4-8.[address] [facility] Comment on above: Performed By: #### L ACT #### [facility] [address] [place] [address] Dr. Ayden Cam PROF CHEM 8 (BAS METB)on Anion gap [Moles/Vol] 9.5 mmol/L Normal [facility] Comment on above: Performed By: #### B MP #### [facility] [address] [address] [address] Ayden Cam Calcium [Mass/Vol] 8.9 mg/dL Normal 8.5-10.1 [facility] Comment on above: Performed By: #### B MP #### [facility] [address] [address] [address] Ayden Cam Chloride [Moles/Vol] 105 mmol/L Normal 98-107 [facility] Comment on above: Performed By: #### B MP #### [facility] [address] [place] [address] Dr. Ayden Cam CO2 [Moles/Vol] 29.6 mmol/L Normal 21.0-32.0 [facility] Comment on above: Performed By: #### B MP #### [facility] [address] [address] [address] Ayden Cam Creatinine [Mass/Vol] 0.56 mg/dL Normal 0.55-1.02 [facility] Comment on above: Performed By: #### B MP #### [facility] [address] [address] [address] Ayden Cam EGFR-AF MALAGASY >60 Normal >=60 [facility] Comment on above: Performed By: #### B MP #### [facility] [address] [address] [address] Ayden Cam EGFR-NON AF MALAGASY >60 Normal >=60 [facility] Comment on above: Performed By: #### B MP #### [facility] [address] [address] [address] Ayden Cam Glucose [Mass/Vol] 88 mg/dL Normal 74-106 [facility] Comment on above: Performed By: #### B MP #### [facility] [address] [address] [address] Ayden Cam Potassium [Moles/Vol] 4.1 mmol/L Normal 3.5-5.1 [facility] Comment on above: Performed By: #### B MP #### [facility] [address] [address] [address] Ayden Cam Sodium [Moles/Vol] 140 mmol/L Normal 136-145 [facility] Comment on above: Performed By: #### B MP #### [facility] [address] [address] [address] Ayden Cam Urea nitrogen [Mass/Vol] 15.0 mg/dL Normal 7.0-18.0 [facility] Comment on above: Performed By: #### B MP #### [facility] [address] [address] [address] Ayden Cam Urea nitrogen/Creatinine [Mass ratio] 26.8 mg/mg Normal [facility] Comment on above: Performed By: #### B MP #### [facility] [address] [place] [address] Dr. Ayden Cam US Jhony 10-05-2022 US [...] RONAN TORIBIO Date: 2022-10-05 09:52 Normal [facility] XR KUB 1 VIEWon 10-05-2022 [...] RONAN TORIBIO Date: 2022-10-05 09:55 Normal [facility] AMYLASEon 10-04-2022 Amylase [Catalytic activity/Vol] 124 U/L Critically high 25-115 [facility] Comment on above: Performed By: #### L IPA, COLE, CMP #### [facility] [address] [address] [address] Ayden Cam CBC AUTO DIFFon 10-04-2022 BASO # 0.0 103/ul Normal 0.0-0.1 [facility] Comment on above: Performed By: #### L IPA #### [facility] [address] [place], [place] [address] Dr. Ayden Cam Basophils/100 WBC (Bld) 0.3 % Normal 0.2-2.0 [facility] Comment on above: Performed By: #### L IPA #### [facility] [address] [place] [address] Dr. Ayden Cam EO # 0.2 103/ul Normal 0.0-0.7 [facility] Comment on above: Performed By: #### L IPA #### [facility] [address] [place] [address] Dr. Ayden Cam Eosinophils/100 WBC (Bld) 2.9 % Normal 0.9-7.0 [facility] Comment on above: Performed By: #### L IPA #### [facility] [address] [place] [address] Dr. Ayden Cam Erythrocyte distribution width (RBC) [Ratio] 12.3 % Normal 11.0-15.0 [facility] Comment on above: Performed By: #### L IPA #### [facility] [address] [place] [address] Dr. Ayden Cam Hematocrit (Bld) [Volume fraction] 42.0 % Normal 36.0-48.0 [facility] Comment on above: Performed By: #### L IPA #### [facility] [address] [place] [address] Dr. Ayden Cam Hemoglobin (Bld) [Mass/Vol] 14.3 g/dL Normal 12.0-16.0 [facility] Comment on above: Performed By: #### L IPA #### [facility] [address] [place] [address] Dr. Ayden Cam IG # 0.02 10e3/ul Normal 0.00-0.03 [facility] Comment on above: Performed By: #### L IPA #### [facility] [address] [place] [address] Dr. Ayden Cam IG % 0.3 % Normal 0.0-0.5 [facility] Comment on above: Performed By: #### L IPA #### [facility] [address] [place] [address] Dr. Ayden Cam LYMPH # 1.7 103/ul Normal 1.2-3.8 [facility] Comment on above: Performed By: #### L IPA #### [facility] [address] [place] [address] Dr. Ayden Cam Lymphocytes/100 WBC (Bld) 22.5 % Normal 20.5-60.0 [facility] Comment on above: Performed By: #### L IPA #### [facility] [address] [place] [address] Dr. Ayden Cam MANUAL DIFF REQ NO Normal [facility] Comment on above: Performed By: #### L IPA #### [facility] [address] [place] [address] Dr. Ayden Cam MCH (RBC) [Entitic mass] 30.1 pg Normal 26.7-34.0 [facility] Comment on above: Performed By: #### L IPA #### [facility] [address] [place] [address] Dr. Ayden Cam MCHC (RBC) [Mass/Vol] 34.0 g/dL Normal 29.9-35.2 [facility] Comment on above: Performed By: #### L IPA #### [facility] [address] [place] [address] Dr. Ayden Cam MCV (RBC) [Entitic vol] 88.4 fL Normal 81.0-99.0 [facility] Comment on above: Performed By: #### L IPA #### [facility] [address] [place] [address] Dr. Ayden Cam MONO # 0.5 103/ul Normal 0.3-0.8 [facility] Comment on above: Performed By: #### L IPA #### [facility] [address] [place] [address] Dr. Ayden Cam Monocytes/100 WBC (Bld) 6.0 % Normal 1.7-12.0 [facility] Comment on above: Performed By: #### L IPA #### [facility] [address] [place] [address] Dr. Ayden Cam NEUT # 5.2 103/ul Normal 1.4-6.5 [facility] Comment on above: Performed By: #### L IPA #### [facility] [address] [place] [address] Dr. Ayden Cam Neutrophils/100 WBC (Bld) 68.0 % Normal 43.0-75.0 [facility] Comment on above: Performed By: #### L IPA #### [facility] [address] [place] [address] Dr. Ayden Cam Platelet mean volume (Bld) [Entitic vol] 9.6 fL Normal 9.5-13.5 [facility] Comment on above: Performed By: #### L IPA #### [facility] [address] [place] [address] Dr. Ayden Cam PLT 183 103/ul Normal 150-450 [facility] Comment on above: Performed By: #### L IPA #### [facility] [address] [place] [address] Dr. Ayden Cam RBC 4.75 106/ul Normal 4.20-5.40 [facility] Comment on above: Performed By: #### L IPA #### [facility] [address] [place] [address] Dr. Ayden Cam WBC 7.6 103/ul Normal 4.0-11.0 [facility] Comment on above: Performed By: #### L IPA #### [facility] [address] [place] [address] Dr. Ayden Cam [facility]on SARS-CoV-2 (COVID-19) RNA LOWELL+probe Ql (Unsp spec) Not detected Normal NOT DETECTED [facility] Comment on above: Result Comment: [...] for this test is supported by the [place] of Health and Human Service's declaration that [...] used). Performed By: #### L IPA #### [facility] [address] [place] [address] Dr. Ayden Cam ER URINE PROFILEon 3 Bilirubin Ql (U) Negative Normal NEGATIVE [facility] Comment on above: Performed By: #### L ACT #### [facility] [address] [place] [address] Dr. Ayden Cam Clarity (U) CLEAR Normal CLEAR [facility] Comment on above: Performed By: #### L ACT #### [facility] [address] [place] [address] Dr. Ayden Cam Color (U) LT. YELLOW Normal YELLOW [facility] Comment on above: Performed By: #### L ACT #### [facility] [address] [place] [address] Dr. Ayden Cam ERUAHBharti A micrscopic examination will be performed if indicated. Normal [facility] Comment on above: Performed By: #### L ACT #### [facility] [address] [place] [address] Dr. Ayden Cam Glucose Ql (U) Negative Normal NEGATIVE [facility] Comment on above: Performed By: #### L ACT #### [facility] [address] [place] [address] Dr. Ayden Cam Hemoglobin Ql (U) Negative Normal NEGATIVE [facility] Comment on above: Performed By: #### L ACT #### [facility] [address] [place] [address] Dr. Ayden Cam Ketones Ql (U) Negative Normal NEGATIVE [facility] Comment on above: Performed By: #### L ACT #### [facility] [address] [place] [address] Dr. Ayden Cam LEUKOCYTES Negative Normal NEGATIVE [facility] Comment on above: Performed By: #### L ACT #### [facility] [address] [place] [address] Dr. Ayden Cam Nitrite Ql (U) Negative Normal NEGATIVE [facility] Comment on above: Performed By: #### L ACT #### [facility] [address] [place] [address] Dr. Ayden Cam pH (U) 8.5 [pH] Normal 5-9 [facility] Comment on above: Performed By: #### L ACT #### [facility] [address] [place] [address] Dr. Ayden Cam SPEC GRAVITY 1.015 Normal 1.005-<=1.02 5 [facility] Comment on above: Performed By: #### L ACT #### [facility] [address] [place] [address] Dr. Ayden Cam UA PROTEIN Negative Normal NEGATIVE/ TRACE [facility] Comment on above: Performed By: #### L ACT #### [facility] [address] [place] [address] Dr. Ayden Cam UR MICRO IND NOT INDICATED Normal [facility] Comment on above: Performed By: #### L ACT #### [facility] [address] [place] [address] Dr. Ayden Cam Urobilinogen Qn (U) 0.2 {Peggy'U}/dL Normal 0.2 - 1. 0 [facility] Comment on above: Performed By: #### L ACT #### [facility] [address] [place] [address] Dr. Ayden Cam LACTATE/LACTIC ACIDon 2022 Lactate [Moles/Vol] 0.8 mmol/L Normal 0.4-1.9 [facility] Comment on above: Performed By: #### L ACT #### [facility] [address] [place] [address] Dr. Ayden Cam LIPASEon 10-04-2022 Lipase [Catalytic activity/Vol] 170.0 U/L Normal 73.0-393.0 [facility] Comment on above: Performed By: #### L ACT #### [facility] [address] [place], [place] [id number] Dr. Ayden Cam PROF 14(COMP METB)on 023 Albumin [Mass/Vol] 3.8 g/dL Normal 3.4-5.0 [facility] Comment on above: Performed By: #### L ACT #### [facility] [address] [place] [address] Dr. Ayden Cam Albumin/Globulin [Mass ratio] 1.1 {ratio} Normal [facility] Comment on above: Performed By: #### L ACT #### [facility] [address] [place] [address] Dr. Ayden Cam ALP [Catalytic activity/Vol] 101 U/L Normal 46-116 [facility] Comment on above: Performed By: #### L ACT #### [facility] [address] [place] [address] Dr. Ayden Cam ALT [Catalytic activity/Vol] 94 U/L Critically high 14-59 [facility] Comment on above: Performed By: #### L ACT #### [facility] [address] [place] [address] Dr. Ayden Cam Anion gap [Moles/Vol] 11.1 mmol/L Normal [facility] Comment on above: Performed By: #### L ACT #### [facility] [address] [place] [address] Dr. Ayden Cam AST [Catalytic activity/Vol] 59 U/L Critically high 15-37 [facility] Comment on above: Performed By: #### L ACT #### [facility] [address] [place] [address] Dr. Ayden Cam Bilirubin [Mass/Vol] 0.3 mg/dL Normal 0.2-1.0 [facility] Comment on above: Performed By: #### L ACT #### [facility] [address] [place] [address] Dr. Ayden Cam Calcium [Mass/Vol] 9.5 mg/dL Normal 8.5-10.1 [facility] Comment on above: Performed By: #### L ACT #### [facility] [address] [place] [address] Dr. Ayden Cam Chloride [Moles/Vol] 99 mmol/L Normal 98-107 [facility] Comment on above: Performed By: #### L ACT #### [facility] [address] [address] [address] Ayden Cam CO2 [Moles/Vol] 29.7 mmol/L Normal 21.0-32.0 [facility] Comment on above: Performed By: #### L ACT #### [facility] [address] [address] [address] Ayden Cam Creatinine [Mass/Vol] 0.61 mg/dL Normal 0.55-1.02 [facility] Comment on above: Performed By: #### L ACT #### [facility] [address] [place] [address] Dr. Ayden Cam EGFR-AF MALAGASY >60 Normal >=60 [facility] Comment on above: Performed By: #### L ACT #### [facility] [address] [address] [address] Ayden Cam EGFR-NON AF MALAGASY >60 Normal >=60 [facility] Comment on above: Performed By: #### L ACT #### [facility] [address] [place] [address] Dr. Ayden Cam Globulin (S) [Mass/Vol] 3.4 g/dL Normal [facility] Comment on above: Performed By: #### L ACT #### [facility] [address] [place] [address] Dr. Ayden Cam Glucose [Mass/Vol] 111 mg/dL Critically high 74-106 [facility] Comment on above: Performed By: #### L ACT #### [facility] [address] [place] [address] Dr. Ayden Cam Potassium [Moles/Vol] 3.8 mmol/L Normal 3.5-5.1 [facility] Comment on above: Performed By: #### L ACT #### [facility] [address] [place] [address] Dr. Ayden Cam Protein [Mass/Vol] 7.2 g/dL Normal 6.4-8.2 [facility] Comment on above: Performed By: #### L ACT #### [facility] [address] [address] [address] Ayden Cam Sodium [Moles/Vol] 136 mmol/L Normal 136-145 [facility] Comment on above: Performed By: #### L ACT #### [facility] [address] [address] [address] Ayden Cam Urea nitrogen [Mass/Vol] 23.0 mg/dL Critically high 7.0-18.0 [facility] Comment on above: Performed By: #### L ACT #### [facility] [address] [address] [address] Ayden Cam Urea nitrogen/Creatinine [Mass ratio] 37.7 mg/mg Normal [facility] Comment on above: Performed By: #### L ACT #### [facility] [address] [place] [address] Dr. Ayden Cam TROPONIN, HIGH SENSITIVITYon 10-04-2022 HSTROP 8.9 pg/mL Normal 4.0-51.3 [facility] Comment on above: Result Comment: CUT- OFF POINTS HAVE BEEN ESTABLISHED BASED ON THE FOURTH UNIVERSAL DEFINITIONS OF MYOCARDIAL INFARCTION. THE UPPER REFERENCE LIMIT (URL) OF TROPONIN, DEFINED THE 99TH PERCENTILE OF cTnI DISTRIBUTION IN A REFERENCE POPULATION, HAS BEEN CONFIRMED THE DECISION THRESHOLD FOR SD DIAGNOSIS. Performed By: #### L ACT #### [facility] [address] [place] [address] Dr. Ayden Cam LIPID PROFILEon 09-19-2022 CHOL-HDL RATIO NORM SEE BELOW Normal [facility] Comment on above: Result Comment: 3.3 - 4.4 LOW RISK 4.4 - 7.1 AVERAGE RISK 7.1 - 11.0 MODERATE RISK >11.0 HIGH RISK Performed By: #### L IPA #### [facility] [address] [place] [address] Dr. Ayden Cam Cholesterol [Mass/Vol] 116 mg/dL Normal <=[address] [facility] Comment on above: Performed By: #### L IPA #### [facility] [address] [place] [address] Dr. Ayden Cam Cholesterol in HDL [Mass/Vol] 59 mg/dL Normal 40-60 [facility] Comment on above: Performed By: #### L IPA #### [facility] [address] [address] [address] Ayden Cam Cholesterol in LDL [Mass/Vol] 34.0 mg/dL Normal [facility] Comment on above: Performed By: #### L IPA #### [facility] [address] [address] [address] Ayden Cam Cholesterol.total/Chol esterol in HDL [Mass ratio] 2.0 {ratio} Normal [facility] Comment on above: Performed By: #### L IPA #### [facility] [address] [address] [address] Ayden Cam HDL NORMAL > or = 60 mg/dl - LOW CARDIOVASCULAR RISK <40 mg/dl - HIGH CARDIOVASCULAR RISK Normal [facility] Comment on above: Performed By: #### L IPA #### [facility] [address] [address] [address] Ayden Cam LDL CALC NORMAL SEE BELOW Normal [facility] Comment on above: Result Comment: <100 mg/dl OPTIMAL 100 - 129 mg/dl NEAR OR ABOVE OPTIMAL 130 - 159 mg/dl BORDERLINE HIGH 160 - 189 mg/dl HIGH >190 mg/dl VERY HIGH Performed By: #### L IPA #### [facility] [address] [address] [address] Ayden Cam Triglyceride [Mass/Vol] 115 mg/dL Normal <=150 [facility] Comment on above: Performed By: #### L IPA #### [facility] [address] [address] [address] Ayden Cam VLDL CALC 23.0 mg/dL Normal [facility] Comment on above: Performed By: #### L IPA #### [facility] [address] [address] [address] Ayden Cam VITAMIN D 25 OHon 09-19-2022 VIT D 25-OH 89.3 ng/mL Normal [facility] Comment on above: Performed By: #### V ITAD #### [facility] [address] [place], [place] [address] Dr. Ayden Cam VIT D RANGES SEE BELOW Normal [facility] Comment on above: Result Comment: <20 ng/mL Vit D deficient 20 - <30 ng/mL Vit D insufficient 30 - 100 ng/mL Vit D sufficient >100 ng/mL Potential Toxicity Performed By: #### V ITAD #### [facility] [address] [place], [place] [address] Dr. Ayden Cam Office Visit (Cardiology)on 08-15-2022 Follow-up visit Diagnoses/Problems Assessed Atherosclerosis of coronary artery of knik heart without angina pectoris (414.01) (I25.10) History of coronary artery bypass graft (V45.81) (Z95.1) Ischemic cardiomyopathy (414.8) (I25.5) Hyperlipidemia (272.4) (E78.5) Essential hypertension, benign (401.1) (I10) Never a smoker Overweight with body mass index (BMI) of 26 to 26.9 in adult (278.02,V85.22) (E66.3,Z68.26) Paroxysmal SVT (supraventricular tachycardia) (427.0) (I47.1) Orders Atherosclerosis of coronary artery of knik heart without angina pectoris, Essential hypertension, benign, Hyperlipidemia Basic Metabolic Panel; Status:Active - Retrospective Authorization; Requested for:[id number]; Lipid Panel; Status:Active - Retrospective Authorization; Requested for:[id number]; Overweight with body mass index (BMI) of 26 to 26.9 in adult Healthy Weight Tips; Status:Complete - Retrospective Authorization; Done: [id number] Some eating tips that can help you lose weight.; Status:Complete - Retrospective Authorization; Done: [id number] SocHx: Never a smoker Tobacco Use Screening; Status:Complete; Done: [id number] Patient Instructions Please bring all medicines, vitamins, [...] She has a history of prior inferior SD, prior PCI with subsequent three-vessel CABG and [...] CHEST PAIN.CALL 911 IF PAIN PERSISTS. Nyamyc [id number] UNIT/GM External Powderapply topically to affected area [...] no s (more content not included)... Normal [employer] Tobacco Screening.on Adult depression screening assessment No [facility] [employer] DO Work Phone: Fall risk assessment a) No falls within the last year [facility] [employer] DO Work Phone: Tobacco use status CPHS b) No [facility] [employer] DO Work Phone: MRI Ankle w/o Lefton 022 MRI Ankle w/o Left HISTORY: Dog jumped [...] by Wilder Arango on 08/01/2022 1102 Normal [facility] [employer] Tobacco Screening.on 021 Tobacco use status CPHS b) No -[facility] 250 DO Work Phone: Vital Signs Date Time Vital Sign Value Performing Clinician Facility 08-14-2023 15:29-0500 Body height 161.3 cm Celso Garibay DO Work Phone: [facility] 08-14-2023 15:29-0500 Body mass index (BMI) [Ratio] 28.07 kg/m2 Celso Garibay DO Work Phone: [facility] 08-14-2023 15:29-0500 Body weight 73.03 kg Celso Garibay DO Work Phone: [facility] 08-14-2023 15:29-0500 Diastolic blood pressure 80 mm[Hg] Celso Garibay DO Work Phone: [facility] 08-14-2023 15:29-0500 Heart rate 56 /min Celso Garibay DO Work Phone: [facility] 08-14-2023 15:29-0500 Systolic blood pressure 138 mm[Hg] Celso Garibay DO Work Phone: [facility] 06-18-2023 15:15-0400 Diastolic blood pressure 78 mm[Hg] Gaby Tello DO Work Phone: [employer] 06-18-2023 15:15-0400 Heart rate 70 /min Gaby Tello DO Work Phone: [facility] [employer] 06-18-2023 15:15-0400 Respiratory rate 18 /min Gaby Novoag DO Work Phone: [facility] [employer] 06-18-2023 15:15-0400 SaO2% (BldA) [Mass fraction] 96 % Gaby Tello DO Work Phone: [facility] [employer] 06-18-2023 15:15-0400 Systolic blood pressure 173 mm[Hg] Gaby Tello DO Work Phone: [facility] [employer] 06-18-2023 14:36-0400 Body temperature 97 [degF] Gaby Tello DO Work Phone: [facility] [employer] 06-18-2023 13:30-0400 Body height 160 cm Gaby Tello DO Work Phone: [facility] [employer] 06-18-2023 13:30-0400 Body mass index (BMI) [Ratio] 27.03 kg/m2 Gaby Tello DO Work Phone: [facility] [employer] 06-18-2023 13:30-0400 Body weight 69.22 kg Gaby Tello DO Work Phone: [facility] [employer] 11-02-2022 15:02-0500 Diastolic blood pressure 84 mm[Hg] MD Ashley Dejesus Work Phone: [facility] 11-02-2022 15:02-0500 Heart rate 78 /min MD Ashley Dejesus Work Phone: [facility] 11-02-2022 15:02-0500 Respiratory rate 18 /min MD Ashley Dejesus Work Phone: [facility] 11-02-2022 15:02-0500 SaO2% (BldA) [Mass fraction] 100 % MD Ashley Dejesus Work Phone: [facility] 11-02-2022 15:02-0500 Systolic blood pressure 161 mm[Hg] MD Ashley Dejesus Work Phone: [facility] 11-02-2022 13:20-0500 Body height 160.02 cm MD Ashley Dejesus Work Phone: [facility] 11-02-2022 13:20-0500 Body temperature 98.2 [degF] MD Ashley Dejesus Work Phone: [facility] 11-02-2022 13:20-0500 Body weight 60.78 kg MD Ashley Dejesus Work Phone: [facility] 11-01-2022 13:26-0500 Diastolic blood pressure 61 mm[Hg] MD Ashley Dejesus Work Phone: [facility] 11-01-2022 13:26-0500 Heart rate 59 /min MD Ashley Dejesus Work Phone: [facility] 11-01-2022 13:26-0500 Respiratory rate 20 /min MD Ashley Dejesus Work Phone: [facility] 11-01-2022 13:26-0500 SaO2% (BldA) [Mass fraction] 99 % MD Ashley Dejesus Work Phone: [facility] 11-01-2022 13:26-0500 Systolic blood pressure 124 mm[Hg] MD Ashley Dejesus Work Phone: [facility] 11-01-2022 10:53-0500 Body height 160.02 cm MD Ashley Dejesus Work Phone: [facility] 11-01-2022 10:53-0500 Body temperature 97.7 [degF] MD Ashley Dejesus Work Phone: [facility] 11-01-2022 10:53-0500 Body weight 61.68 kg MD Ashley Dejesus Work Phone: [facility] 10-24-2022 15:45-0500 Body height 159.38 cm Imad Asaad Other [facility] [employer] Other 10-24-2022 15:45-0500 Body mass index (BMI) [Ratio] 24.28 kg/m2 Imad Asaad Other [employer] Other 10-24-2022 15:45-0500 Body weight 61.69 kg Imad Asaad Other [facility] Other 10-24-2022 15:45-0500 Diastolic blood pressure 94 mm[Hg] Imad Asaad Other [facility] Other 10-24-2022 15:45-0500 Systolic blood pressure 133 mm[Hg] Imad Asaad Other [facility] Other 09-19-2022 00:00-0500 34 1 Ashley M Hoy Work Phone: [facility] [employer] 250 DO Work Phone: Comment on above: [facility] 08-15-2022 15:23-0500 Body height 160.02 cm Ashley M Hoy Work Phone: [facility] [employer] 250 DO Work Phone: 08-15-2022 15:23-0500 Body mass index (BMI) [Ratio] 26.22 kg/m2 Ashley M Hoy Work Phone: [facility] 250 DO Work Phone: 08-15-2022 15:23-0500 Body surface area Derived from formula 1.7 m2 Ashley M Hoy Work Phone: [facility] 250 DO Work Phone: 08-15-2022 15:23-0500 Body weight 67.13 kg Ashley M Hoy Work Phone: [facility] 250 DO Work Phone: 08-15-2022 15:23-0500 Diastolic blood pressure 82 mm[Hg] Ashley M Hoy Work Phone: [facility] 250 DO Work Phone: 08-15-2022 15:23-0500 Heart rate 80 /min Ashley M Hoy Work Phone: [facility] 250 DO Work Phone: 08-15-2022 15:23-0500 Systolic blood pressure 132 mm[Hg] Ashley M Hoy Work Phone: [facility] 250 DO Work Phone: 06-02-2022 08:12-0400 Blood Pressure Location Santiago CARRILLO [facility] 06-02-2022 08:12-0400 Diastolic blood pressure 86 mm[Hg] Santiago CARRILLO [facility] 06-02-2022 08:12-0400 Heart rate 60 /min Santiago CARRILLO [facility] 06-02-2022 08:12-0400 Respiratory rate 16 /min Santiago CARRILLO [facility] 06-02-2022 08:12-0400 Systolic blood pressure 144 mm[Hg] Santiago CARRILLO [facility] 08-17-2021 09:47-0500 Body height 160.02 cm Ashley M Hoy Work Phone: [facility] 250 DO Work Phone: 08-17-2021 09:47-0500 Body mass index (BMI) [Ratio] 25.01 kg/m2 Ashley Clements Hoy Work Phone: [facility] 250 DO Work Phone: 08-17-2021 09:47-0500 Body surface area Derived from formula 1.67 m2 Ashley Tyree Hoy Work Phone: [facility] 250 DO Work Phone: 08-17-2021 09:47-0500 Body weight 64.05 kg Ashley Tyree Hoy Work Phone: [facility] 250 DO Work Phone: 08-17-2021 09:47-0500 Diastolic blood pressure 86 mm[Hg] Ashley Clements Hoy Work Phone: [facility] 250 DO Work Phone: 08-17-2021 09:47-0500 Heart rate 72 /min Ashley Clements Hoy Work Phone: [facility] 250 DO Work Phone: 08-17-2021 09:47-0500 Systolic blood pressure 134 mm[Hg] Ashley Clements Hoy Work Phone: [facility] 250 DO Work Phone: Encounters Encounter Date Encounter Type Care Provider Facility Start: 02-19-2024 ambulatory JENNIFER Perez ty:[facility] Start: 01-17-2024 End: 01-17-2024 ambulatory [facility] Start: 09-13-2023 End: 09-13-2023 ambulatory ALINA JAVIER Not Available Start: 08-14-2023 End: 08-14-2023 ambulatory [facility] Ambulatory Start: 08-14-2023 End: 08-14-2023 Office outpatient visit 15 minutes [facility] DO Work Phone: [facility] Comment on above: Atherosclerosis of c oronary artery of knik heart without angina pectoris, unspecified vessel or lesion type; History of coronary artery bypass graft; Ischemic cardiomyopathy; Essential hypertension, benign Start: 06-18-2023 End: 06-18-2023 [facility] Start: 06-18-2023 End: 06-18-2023 Subsequent hospital visit by physician Gaby Tello DO Work Phone: [facility] Comment on above: Post-menopausal blee ding; Inclusion cyst Start: 05-24-2023 Rx Renewal Ashley Dejesus Work Phone: [facility] 250 DO Work Phone: Start: 05-17-2023 Patient encounter procedure Ashley Dejesus Work Phone: [facility] 250 DO Work Phone: Start: 05-15-2023 ambulatory ASHLEY DEJESUS [facility] Start: 12-12-2022 End: 12-12-2022 ambulatory Imad Asaad Facility:[facility] Start: 12-12-2022 End: 12-12-2022 ambulatory MD Ashley Dejesus Work Phone: [facility] Work Phone: Start: 12-12-2022 End: 12-12-2022 Patient encounter procedure MD Ashley Dejesus Work Phone: [facility] Work Phone: Start: 11-20-2022 End: 11-20-2022 ambulatory Imad Asaad Other [facility] Other Start: 11-20-2022 Telephone encounter Imad Asaad [facility] Start: 11-10-2022 End: 11-10-2022 ambulatory Imad Asaad Facility:[facility] Start: 11-10-2022 End: 11-10-2022 Patient encounter procedure MD Ashley Dejesus Work Phone: [facility] [place] Work Phone: Start: 11-02-2022 End: 11-02-2022 ambulatory Imad Asaad Facility:[facility] Start: 11-02-2022 End: 11-02-2022 Admission to same day surgery center MD Ashley Dejesus Work Phone: [facility] Work Phone: Start: 11-02-2022 End: 11-02-2022 ambulatory MD Ashley Dejesus Work Phone: [facility] Work Phone: Start: 11-01-2022 Telephone encounter Imad Asaad [facility] Start: 11-01-2022 End: 11-01-2022 ambulatory Imad Asaad Facility:[facility] Start: 11-01-2022 End: 11-01-2022 Admission to same day surgery center MD Ashley Dejesus Work Phone: [facility] Work Phone: Start: 11-01-2022 End: 11-01-2022 ambulatory MD Ashley Dejesus Work Phone: [facility] Work Phone: Start: 10-24-2022 End: 10-24-2022 ambulatory Imad Asaad Other [facility] Other Start: 10-24-2022 HC visit new patient Imad Asaad [facility] Start: 10-16-2022 End: 10-17-[address] ASHLEY DEJESUS Facility:[facility] Start: 10-09-2022 End: 10-10-[address] ASHLEY DEJESUS Facility:[facility] Start: 10-05-2022 Rx Renewal Ashley Dejesus Work Phone: [facility] 250 DO Work Phone: Start: 10-04-2022 End: 10-06-[address] ASHLEY DEJESUS Facility:[facility] Start: 09-19-2022 End: 09-20-[address] MORALES [facility] Facility:[facility] Start: 08-15-2022 Office outpatient vi sit 15 minutes Ashley Dejesus Work Phone: [facility] 250 DO Work Phone: Start: 08-15-2022 Patient encounter procedure Ashley Dejesus Work Phone: [facility] 250 DO Work Phone: Start: 06-02-2022 End: 06-02-2022 Patient encounter procedure Santiago CARRILLO [facility] Start: 05-31-2022 Rx Renewal Ashley Dejesus Work Phone: [facility] 250 DO Work Phone: Start: 02-07-2022 End: 02-07-2022 Patient encounter procedure Ashley Dejesus MD Work Phone: [facility] Start: 02-07-2022 End: 02-07-2022 Subsequent hospital visit by physician Ashley Dejesus MD Work Phone: [facility] Comment on above: Women's annual routi ne gynecological examination Start: 11-21-2021 Rx Renewal Ashley Dejesus Work Phone: [facility] 250 DO Work Phone: Start: 08-17-2021 Office outpatient vi sit 15 minutes Ashley Dejesus Work Phone: [facility] DO Work Phone: Start: 08-19-2019 End: 08-19-2019 Subsequent hospital visit by physician Ashley CABEZAS Laboratory Comment on above: Well female exam wit h routine gynecological exam Start: 08-29-2017 Ambulatory PROVIDER UNKNOWN Facili ty:[id number] Start: 08-27-2017 Ambulatory PROVIDER UNKNOWN Facili ty:[id number] Start: 08-27-2017 Ambulatory Facility:9 [id number] Procedures Date Procedure Procedure Detail Performing Clinician Start: 08-14-2023 Alanine aminotransferase [Enzymatic activity/volume] in Serum or Plasma CELSO GARIBAY Start: 08-14-2023 Lipid panel CELSO GARIBAY Start: 08-09-2023 History of coronary artery bypass grafting History of coronary artery bypass graft Celso Garibay DO Work Phone: Start: 12-12-2022 Ultrasound elastography of liver MD Deacon Dejesus Work Phone: Start: 11-10-2022 Magnetic resonance cholangiopancreatography MD Ashley Dejesus Work Phone: Start: 11-02-2022 Colonoscopy MD Ashley Dejesus Work Phone: Start: 11-01-2022 Colonoscopy MD Ashley Dejesus Work Phone: Start: 07-24-2022 Mammography Celso Garibay DO Work Phone: Start: 02-07-2022 Microscopic observation [Identifier] in Cervix by Cyto stain Gaby Tello DO Work Phone: Start: 11-01-2019 Excision of ganglion cyst Santiagohilda CARRILLO Start: 08-19-2019 Microscopic observation [Identifier] in Cervix by Cyto stain Ashley Dejesus MD Work Phone: Appendectomy Ashley M Hoy Work Phone: Appendectomy Santiago CARRILLO Bypass of stomach Santiago GALVAN Cataract surgery Ashley M H oy Work Phone: Cholecystectomy Ashley M Ho y Work Phone: Coronary artery bypass graft Ashley M Hoy Work Phone: Coronary artery bypa ss graft operation planned Santiago CARRILLO Decompression of median nerve Ashley M Hoy Work Phone: Esophagogastrostomy, antesternal or antethoracic Ashley M Hoy Work Phone: History of coronary artery bypass grafting History of coronary artery bypass graft Ashley M Hoy Work Phone: History of coronary artery bypass grafting History of coronary artery bypass graft Celso Garibay DO Work Phone: Kidney operation Ashley M H oy Work Phone: Operation on nose Ashley Dejesus Work Phone: Peripheral neuroplasty Cecilio Dejesus Work Phone: Repair of inguinal hernia [employer] kylie CARRILLO Total colonoscopy Ashley Dejesus Work Phone: Plan of Treatment Date Care Activity Detail Author Start: 02-07-2027 Screening for malignant neoplasm of cervix [facility] [employer] Start: 02-07-2025 Screening for malignant neoplasm of cervix [facility] Start: 08-19-2024 Screening for malignant neoplasm of cervix [facility] [employer] Start: 08-13-2024 End: 08-13-2024 Patient encounter procedure 08/13/2024 11:30 AM EST Office Visit [facility] [address] [facility] [address] [place] [address] Celso Garibay, [address] [facility] [address] [place], [place] [id number] [facility] Start: 02-14-2024 Depression Screen Depression Screen [facility] Start: 02-12-2024 End: 08-14-2024 Alanine aminotransferase [Enzymatic activity/volume] in Serum or Plasma by With P-5'-P Alanine Aminotransferase Lab Routine History of coronary artery bypass graft Ischemic cardiomyopathy Expected: 02/12/2024 (Approximate), Expires: 08/14/2024 [facility] Work Phone: Comment on above: Expected: 02/12/2024 (Approximate), Expi res: 08/14/2024 Start: 02-12-2024 End: 08-14-2024 Aspartate aminotransferase [Enzymatic activity/volume] in Serum or Plasma by With P-5'-P Aspartate Aminotransferase Lab Routine Atherosclerosis of coronary artery of knik heart without angina pectoris, unspecified vessel or lesion type Ischemic cardiomyopathy Expected: 02/12/2024 (Approximate), Expires: 08/14/2024 [facility] Work Phone: Comment on above: Expected: 02/12/2024 (Approximate), Expi res: 08/14/2024 Start: 02-12-2024 End: 08-14-2024 Lipid 1996 panel - Serum or Plasma Lipid Panel Lab Routine Atherosclerosis of coronary artery of knik heart without angina pectoris, unspecified vessel or lesion type Expected: 02/12/2024 (Approximate), Expires: 08/14/2024 [facility] Service Area Work Phone: Comment on above: Expected: 02/12/2024 (Approximate), Expi res: 08/14/2024 Start: 08-14-2023 FUV, Provider: Celso Garibay, Status: Julio, Time: 3:00 PM FUV, Provider: Celso Garibay, Status: Julio, Time: 3:00 PM -[facility] DO Work Phone: Start: 07-28-2023 Screening for malignant neoplasm of breast Breast cancer screen [facility] Start: 07-24-2023 Screening for malignant neoplasm of breast Mammogram [facility] Start: 07-03-2023 End: 07-03-2023 Patient encounter procedure 07/03/2023 4:45 PM EDT Office Visit [facility] [id number] Gaby Chahal, DO [address] [place], [place] [id number] post-op BA 05/16 [facility] Comment on above: post-op BA 05/16 Start: 06-18-2023 End: 06-18-2023 Hysteroscopy bx endometrium&/polypc w/wo d&c DILATATION AND CURETTAGE HYSTEROSCOPY Post-menopausal bleeding Inclusion cyst 06/18/2023 2:01 PM EDT [facility] Start: 02-13-2023 End: 02-13-2023 Patient encounter procedure 02/13/2023 Office Visit Obstetrics and Gynecology Gaby Chahal, DO [address] [place] [address] [facility] Start: 12-12-2022 [facility] Start: 11-02-2022 [facility] Start: 11-01-2022 [facility] Start: 08-19-2022 Screening for malignant neoplasm of cervix Pap smear [facility] Start: 08-15-2022 FUV, Provider: Celso Garibay, Status: Pen, Time: 3:00 PM FUV, Provider: Celso Garibay, Status: Pen, Time: 3:00 PM [facility] DO Work Phone: Start: 08-03-2022 Lipid panel Lipids [facility] Start: 09-26-2021 COVID-19 Vaccine (4 - Pfizer series) COVID-19 Vaccine (4 - Pfizer series) [facility] Start: 06-01-2019 Influenza vaccination Flu vaccine (#1) [place], [place] Start: 05-09-2018 Pneumococcal Vaccine: Pediatrics (0 to 5 Years) and At-Risk Patients (6 to 64 Years) (2 - PCV) Pneumococcal Vaccine: Pediatrics (0 to 5 Years) and At-Risk Patients (6 to 64 Years) (2 - PCV) [facility] Start: 2014 Breast cancer screen Breast cancer screen [place], [place] Start: 2014 Colon cancer screen colonoscopy Colon cancer screen colonoscopy [place] Start: 2014 Shingles Vaccine (1 of 2) Shingles Vaccine (1 of 2) [facility] [employer] Start: 08-26-2009 MMR Vaccines (1 of 1 - Standard series) MMR Vaccines (1 of 1 - Standard series) [facility] Start: 2009 Screening for malignant neoplasm of colon [facility] Start: 1999 Diabetes screen Diabetes screen [facility] Start: 1986 DTaP/Tdap/Td Vaccines (1 - Tdap) DTaP/Tdap/Td Vaccines (1 - Tdap) [facility] Start: 1985 Cervical cancer screen Cervical cancer screen [place], [place] Start: 1985 Screening for malignant neoplasm of cervix [facility] Start: 1983 DTaP/Tdap/Td vaccine (1 - Tdap) DTaP/Tdap/Td vaccine (1 - Tdap) [facility] Start: 1982 Diabetes mellitus screening Diabetes Screening [facility] Start: 1982 Hepatitis C screening [facility] Start: 1979 HIV screen HIV screen [place], [place] Start: 1979 HIV screening HIV screen [facility] Start: 1976 Depression Screen Depression Screen [facility] Start: 1975 DTaP/Tdap/Td vaccine (1 - Tdap) DTaP/Tdap/Td vaccine (1 - Tdap) [place] Start: 1974 Lipid panel Lipids [facility] Start: 1974 Lipid screen Lipid screen [place], [place] Start: 1964 Hepatitis B vaccine (1 of 3 - 3-dose series) Hepatitis B vaccine (1 of 3 - 3-dose series) [facility] Start: 1964 Hepatitis B Vaccines (1 of 3 - 3-dose series) Hepatitis B Vaccines (1 of 3 - 3-dose series) [facility] [facility] Start: 1965 Hepatitis C screen Hepatitis C screen [place], [place] Start: 1964 HIV screening HIV Screening [facility] Start: 1965 Lipid panel Lipid Panel [facility] Start: 1965 Screening for malignant neoplasm of colon [facility] Start: 1965 Yearly Adult Physical Yearly Adult Physical [facility] Actin smooth muscle IgG Ab [Units/volume] in Serum [facility] Alpha 1 antitrypsin [Mass/volume] in Serum or Plasma [facility] Alpha 1 antitrypsin phenotyping [Identifier] in Serum or Plasma by Immunofixation [facility] Ceruloplasmin [Mass/volume] in Serum or Plasma [facility] End: 08-19-2019 Cytopathology procedure, preparation of smear, genital source [facility] Lab Routine Well female exam with routine gynecological exam 1 Occurrences starting 08/19/2019 until 08/19/2019 [place] Comment on above: 1 Occurrences starting 08/19/2019 until 08/19/2019 End: 02-07-2022 Cytopathology procedure, preparation of smear, genital source [facility] Lab Routine Women's annual routine gynecological examination 1 Occurrences starting 02/07/2022 until 02/07/2022 [employer] Work Phone: Comment on above: 1 Occurrences starting 02/07/2022 until 02/07/2022 Hepatitis A virus Ab [Presence] in Serum by Immunoassay [facility] Hepatitis B core ant ibody measurement [facility] Hepatitis B virus khanna rface Ab [Presence] in Serum [facility] Hepatitis B virus khanna rface Ag [Presence] in Serum or Plasma by Immunoassay [facility] Hepatitis C virus Ig G Ab [Presence] in Serum or Plasma by Immunoassay [facility] Homogenous nuclear A b pattern [Titer] in Serum [facility] IgG [Mass/volume] in Serum or Plasma [facility] End: 06-18-2023 INITIATE PACU OXYGEN THERAPY PROTOCOL Initiate PACU Oxygen Therapy Protocol Respiratory Care Routine Continuous until discontinued starting 06/18/2023 [facility] [employer] Comment on above: Continuous until discontinued starting 0 06/18/2023 Lipoprotein a [Moles/volume] in Serum or Plasma [facility] Mitochondria M2 IgG Ab [Units/volume] in Serum [facility] Nuclear Ab [Titer] i n Serum [facility] Oxygen therapy [Mini mum Data Set] Initiate Oxygen Therapy Protocol Respiratory Care Routine As Needed until discontinued starting 06/18/2023 [facility] [employer] Comment on above: As Needed until discontinued starting Oxygen therapy [Mini mum Data Set] Initiate Oxygen Therapy Protocol Respiratory Care Routine As Needed until discontinued starting 06/18/2023 [facility] [employer] Comment on above: As Needed until discontinued starting Patient Education Hemorrhoids (DC) [facility] Work Phone: End: 06-18-2023 , urine POCT , urine POCT Point of Care Testing Routine One Time for 1 Occurrences starting 06/18/2023 until 06/18/2023 [facility] [employer] Comment on above: One Time for 1 Occurrences starting 06/01 until 06/18/2023 Surgical Pathology Surgical Path ology Lab Routine Post-menopausal bleeding Inclusion cyst Release Upon Ordering for 1 Occurrences starting 06/18/2023 [facility] Comment on above: Release Upon Ordering for 1 Occurrences starting 06/18/2023 [facility] Immunizations Immunization Date Immunization Notes Care Provider Sudhakar nedrabridget 06-16-2022 influenza, injectabl e, quadrivalent, preservative free Ashley M Hoy Work Phone: [facility] Work Phone: 06-16-2022 zoster vaccine recombinant Ashley M Hoy Work Phone: [facility] Work Phone: 08-01-2021 Pfizer-BioNTech COVI D-19 Vacc 30 MCG/0.3ML Intramuscular Suspension Ashley M Hoy [facility] Phone[facility] DO Work Phone: 06-30-2021 influenza virus vacc ine, unspecified formulation Ashley M Hoy Work Phone: [facility] DO Work Phone: 06-03-2021 Influenza, injectabl e, Madin Renetta Canine Kidney, preservative free, quadrivalent Ashley M Hoy Work Phone: [facility] DO Work Phone: 01-29-2021 Pfizer-BioNTech COVI D-19 Vacc 30 MCG/0.3ML Intramuscular Suspension Ashley M Hoy Work Phone: [facility] DO Work Phone: 01-08-2021 Pfizer-BioNTech COVI D-19 Vacc 30 MCG/0.3ML Intramuscular Suspension Ashley M Hoy Work Phone: [facility] 250 DO Work Phone: 2020 influenza, injectabl e, quadrivalent, preservative free Ashley M Hoy Work Phone: [facility] 250 DO Work Phone: 07-23-2018 influenza, injectabl e, quadrivalent, preservative free Ashley Clements Hoy Work Phone: [facility] 250 DO Work Phone: 07-26-2017 Influenza, injectabl e, Madin Renetta Canine Kidney, preservative free, quadrivalent Ashley Clements Hoy Work Phone: [facility] DO Work Phone: 05-09-2017 pneumococcal polysaccharide vaccine, 23 valent Ashley Clements Hoy Work Phone: [facility] 250 DO Work Phone: 07-03-2015 influenza, seasonal, injectable, preservative free Ashley M Hoy Work Phone: [facility] DO Work Phone: 06-15-2014 influenza, seasonal, injectable Ashley Clements Hoy Work Phone: [facility] 250 DO Work Phone: 07-29-2009 novel influenza-H1N1 -09, preservative-free, injectable Ashley Clements Hoy Work Phone: [facility] DO Work Phone: Payers Date Payer Category Payer Self-pay [id number] [phone] [id number] 2022 Unknown 2019 Unknown [employer] [place] xxxxxxxxxxxxxxx 2019-Present [address] [place] [address] xxxxxxxxxxxxxxx [id number] 1964 Unknown [id number] [id number] 1964 Unknown [id number] [id number] 1964 Unknown [id number] 2.16.840.1.973790.3.579.2.593 1964 Unknown [id number] 2.16.840.1.315594.3.579.2.593 1964 Unknown [id number] 2.16.840.1.684611.3.579.2.593 1964 Unknown [id number] 2.16.840.1.290953.3.579.2.173 1964 Unknown [id number] 2.16.840.1.774126.3.579.2.175 1964 Unknown [id number] 2.16.840.1.154534.3.579.2.124 4 1964 Unknown [id number] 2.16.840.1.767316.3.579.2.125 9 1964 Unknown [id number] 2.16.840.1.857407.3.579.2.128 6 1964 Unknown [id number] 2.16.840.1.284585.3.579.2.727 1959 Unknown [id number] 1959 Unknown [id number] Unknown [id number] 2.16.840.1.853176.3.579.2.531 Unknown [id number] 2.16.840.1.724486.3.579.2.531 Unknown [id number] 2.16.840.1.988548.3.579.2.531 Unknown [id number] [id number] Social History Date Type Detail Facility Start: 08-19-2019 End: 08-14-2023 Tobacco smoking status KYIS Never smoker [place] Start: 08-19-2019 End: 06-18-2023 Alcohol intake Ex-drinker (finding) [facility] Start: 1965 [facility]igned [facility] Start: 02-13-2023 End: 06-18-2023 No alcohol use No alcohol use [facility] [employer] (formerly known as [employer] DO Work Phone: Start: 08-19-2019 End: 08-14-2023 Tobacco use and exposure Smokeless tobacco non-user [facility] [employer] Work Phone: Start: 02-13-2023 End: 06-18-2023 Sex Assigned At Female [facility] Start: 1965 Sex Assigned At Female F [facility] Patient Health Questionnaire 9 item (PHQ-9) total score [Reported] 0 [facility] [employer] Start: 08-14-2023 Alcohol intake Lifetime non-drinker (finding) [facility] Work Phone: Start: 08-04-2023 End: 08-14-2023 Exposure to SARS-CoV-2 (event) Not sure [facility] NEGATED: Highlighted row Denies Caffeine use Denies Caffeine use [facility] [employer] 250 DO Work Phone: Medical Equipment Procedure [...] 06-02-2022 Functional Status N/A [facility] Clinical Notes 06-02-2022 to 08-14-2023 Celso Garibay, DO - 08/14/2023 3:00 PM ESTPatient InstructionsDischarge Debbie [...] has a history of remote CABG, remote SD, remote PCI's before and after her CABG [...] Assessment/Plan 1. Atherosclerosis of coronary artery of knik heart without angina pectoris, unspecified vessel or lesion type 2. History of coronary artery bypass graft 3. Ischemic cardiomyopathy 4. Essential hypertension, benign documented in this encounter [facility] Work Phone: 08-14-2023 Instructions Ej [place] [...] of your visit. documented in this encounter [facility] Work Phone: 06-18-2023 Hospital Discharge instructions [...] call if excessive. Call the office at [phone] ([place]) [phone] ([place]) for an appointment in 2 weeks. documented in this encounter [facility] 06-06-2023 History of Present illness [...] 7 days prior to surgery per Dr. Tripathi's instructions. Pt will complete EKG day of her pre-op visit with Dr. Tripathi. documented in this encounter [facility] 11-20-2022 Evaluation note Encounter Date Diagnosis Assessment Notes Nov, Elevated liver function tests (ICD-10 - R94.5) [employer] Other 02-02-2023 Procedure [facility]02-01-2023 Procedure [facility]01-24-2023 Evaluation note* Encounter Date Diagnosis Assessment Notes Treatment Notes Treatment Clinical Notes Oct, Abdominal pain (ICD-10 - R10.9) Oct, Common bile duct dilatation (ICD-10 - K83.8) Oct, Elevated liver enzymes (ICD-10 - R74.8) Oct, Constipation (ICD-10 - K59.00) Colonoscopy Start Miralax daily after colonoscopy. Titration dosing discussed with patient. Oct, Colon cancer screening (ICD-10 - Z12.11) [employer] Other 01-04-2023 NotePROGRESS NOTE NOTE DATE: 10/04/2022 CHIEF COMPLAINT: Abdominal pain. HISTORY OF PRESENT ILLNESS: The patient is a 57-year-old female with a history of dyslipidemia and gastric bypass surgery, who has been having increasing abdominal pain and flank pain. She was seen yesterday at the [facility] for epigastric and upper abdominal [...] Prophylaxis: Lovenox. DISPOSITION: Home when medically stable.[id number] Discharge instructions Patient Education 06/02/2022 08:51:52 Kidney Stones, Orte-qu-Nrmv Kidney Stones Kidney stones are rock-like masses [...] Follow these instructions at home: Medicines Take fpkx-gfl-bqwvbrp and prescription medicines only as told by [...] 03/05/2009 Document Revised: 02/03/2020 Document Reviewed: 02/03/2020 [employer] Patient Education 2019 [employer]. Follow Up Care 05/27/2021 09:10:08 With:LORENA STRAUSS, Santiago Guzman, URL Address: [address] [id number]- When: Unknown [facility] evaluation + Plan note Future Appointments Appointment Date:06/01/2023 08:00:00 AM Scheduled Provider:Santiago CARRILLO MD Location:[facility] Appointment Type:URO Office Visit [facility] evaluation note* Diagnosis Women's annual routine gynecological examination documented in this encounter [employer] Work Phone: evaluation noteNo assessment information available [facility] Work Phone: Evaluation noteNo InformationNotwo [facility] [employer] Other Evaluation note* Diagnosis Post-menopausal bleeding Postmenopausal bleeding Inclusion cyst Sebaceous cyst documented in this encounter [facility] [place] [facility]* Diagnosis Atherosclerosis of coronary artery of knik heart without angina pectoris, unspecified vessel or lesion type 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 Ischemic cardiomyopathy Other specified forms of chronic ischemic heart disease Essential hypertension, benign documented in this encounter [facility] Work Phone: History and physical note Author Evert Bruno [facility] November 01, 2022 12:40pm Note Date/Time November 01, 2022 1 2:40pm [facility] [address] [place] [address] Gastroenterology H&P Signed Patient: Jose Alberto Saleem MR#: [id number] : 1965 Acct:[id number] Age/Sex: 57 / F Adm Date: 3 Loc: Room: Type: [facility] Attending Dr: Evert Bruno MD [...] signed by Evert Bruno MD> 11/01/22 1240 [facility] Work Phone: History and physical note Author Evert Bruno [facility] November 02, 2022 2:14pm Note Date/Time November 02, 2022 2 :14pm [facility] [address] [place] [address] Gastroenterology H&P Signed Patient: SaleemJose Alberto orozco MR#: [id number] : 1965 Acct:[id number] Age/Sex: 57 / F Adm Date: 3 Loc: Room: Type: [facility] Attending Dr: Evert Bruno MD [...] <Electronically signed by Evert Bruno MD> 11/02/22 1410 [facility] Work Phone: History general Narrative - Reported* Type Description Date Medical History impaired fasting glucose Medical History heart disease, SD stents, CABG Medical History Hypertension Medical History hyperlipidemia Medical History peanut sorter esophogus Surgical History CABG remote history Surgical History gastric bypass 2018 Surgical History multiple kidney stones removed Surgical History appendectomy Surgical History cyst on ovarian removed Surgical History bilateral carpe tunnel surgery 2021 Surgical History cholecystectomy Hospitalization History see surgical hx [facility] Other Hospital course Narrative No data available for this section [facility] Discharge instructions Additional Instructions DISCHARGE INSTRUCTIONS [...] problems. -Follow up with PCP. -Office number [phone]. [facility] Work Phone: Hospital Discharge instructions Additional [...] NOT operate machinery such as power tools, [employer] mowers, [employer], sewing machines, etc. for 24 hours. - [...] problems. -Follow up with PCP. -Office number [phone]. [facility] Work Phone: Progress note No data available for this section [facility] reason for referral (narrative)* Consultation (Routine) - Authorized Specialty Diagnoses / Procedures Referred By Contac t Referred To Contact Cardiology Diagnoses Atherosclerosis of coronary artery of knik heart without angina pectoris, unspecified vessel or lesion type History of coronary artery bypass graft Procedures Follow Up In Cardiology Celso Garibay DO [address] [facility] [address] [place] [address] Celso Garibay DO [address] [facility] [address] [place] [address] Referral ID Status Reason Start Date Expiration Date V isits Requested Visits Authorized [id number] Authorized 08/14/2023 08/13/2024 1 1 [facility] Work Phone: Summary Purpose Family History No [...] FoundDocuments on File Type Date Recorded 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 Last ischemic evaluation 2016 revealed a normal myocardial perfusion stress test. * Patient has no current angina or heart failure hospitalizations. She is status post Sly-en-Y gastric bypass with substantial weight loss. * She remains on aspirin and atorvastatin only for her secondary preventive therapies given her adverse reactions to other medications, hypotension. * [place] [employer] is class I * Recommendations, [...] She has a history of prior inferior SD, prior PCI with subsequent three-vessel CABG and [...] She has a history of prior inferior SD, prior PCI with subsequent three-vessel CABG and [...] section and content) DATE CREATED AUTHOR 03/26/2018 [facility] DATE CREATED AUTHOR AUTHOR'S ORGANIZ ATION 03/26/2018 [facility] DATE CREATED AUTHOR AUTHOR'S ORGANIZ ATION 08/02/2022 [facility] dical Specialist DATE CREATED AUTHOR AUTHOR'S ORGANIZ ATION 08/17/2022 [employer] [facility] DATE CREATED AUTHOR AUTHOR'S ORGANIZ ATION 10/17/2022 [facility] DATE CREATED AUTHOR AUTHOR'S ORGANIZ ATION 12/16/2022 [facility] DATE CREATED AUTHOR AUTHOR'S ORGANIZ ATION 06/23/2023 [facility] DATE CREATED AUTHOR AUTHOR'S ORGANIZ ATION 07/16/2023 [facility] DATE CREATED AUTHOR AUTHOR'S ORGANIZ ATION 08/16/2023 [facility] DATE CREATED AUTHOR AUTHOR'S ORGANIZ ATION 09/15/2023 [facility] dical Specialists [facility] DATE CREATED AUTHOR AUTHOR'S ORGANIZ ATION 01/19/2024 [facility] DATE CREATED AUTHOR AUTHOR'S ORGANIZ ATION 01/23/2024 Amanuel Cage [facility] Care Teams (unrecognized sec tion and content) Team Status: Active Member Role Status Dates Ashley Dejesus MD Primary Care Provider Active Team Status: Inactive Member Role Status Dates Ashley Dejesus MD Primary Care Provider Active Evert Bruno MD Attending Provider Active [employer] Relationship Specialty Start Date End Date Ashley Dejesus MD [address] [place] [address] PCP - General Family Medicine 08/19/19 [employer] T[employer] Relationship Specialty [place] [address] [place] [address] PCP - General Family Medicine 08/19/19 [employer] Language T[employer] Relationship Specialty [place] [address] [place] [address] PCP - General 08/17/21 REASON FOR VISIT (unrecogniz ed section and content) Specialty Diagnoses / Procedures Referred By Manfred flynn Referred To Contact Diagnoses Post-menopausal bleeding Inclusion cyst Post-menopausal bleeding [N95.0] Inclusion cyst [L72.0] Procedures MD HYSTEROSCOPY BX ENDOMETRIUM&/POLYPC W/WO D&C MD DESTRUCTION BENIGN LESIONS UP TO 14 DILATATION AND CURETTAGE HYSTEROSCOPY-REMOVAL OF INCLUSION CYST Gaby Chahal, DO [address] [place] [address] [facility] [address] [place] [address] Referral ID Status Reason Start Date Expiration Date Visits Re quested Visits Authorized [id number] 1 1 Reason Comments Annual Exam 1yr [...] BE BASED ON THE PRIMARY CLINICAL RECORDS. [employer] [facility]. provides no warranty or guarantee of the accuracy or completeness of information in this document.
[2024-01-31 11:08] LABS: Basophils Percent Auto 0.4 % (0.2-2.0); Eosinophils Absolute Auto 0.2 10^3/uL (0.0-0.7); Eosinophils Percent Auto 2.8 % (0.9-7.0); Hematocrit 44.9 % (36.0-48.0); Hemoglobin 14.5 g/dL (12.0-16.0); Immature Granulocytes Abs Auto 0.02 10^3/uL (0.00-0.03); Immature Granulocytes Pct Auto 0.2 % (0.0-0.5); Lymphocytes Absolute Auto 1.5 10^3/uL (1.2-3.8); Lymphocytes Percent Auto 18.1 % (20.5-60.0); Mean Corpuscular HGB Conc 32.3 g/dL (29.9-35.2); Mean Corpuscular Hemoglobin 29.8 pg (26.7-34.0); Mean Corpuscular Volume 92.2 fL (81.0-99.0); Mean Platelet Volume 9.5 fL (9.5-13.5); Monocytes Absolute Auto 0.7 10^3/uL (0.3-0.8); Monocytes Percent Auto 8.8 % (1.7-12.0); Neutrophils Absolute Auto 5.8 10^3/uL (1.4-6.5); Neutrophils Percent Auto 69.7 % (43.0-75.0); Platelet Count 185 10^3/uL (150-450); Red Blood Count 4.87 10^6/uL (4.20-5.40); Red Cell Distribution Width 11.9 % (11.0-15.0); White Blood Count 8.3 10^3/uL (4.0-11.0)
[2024-01-31 12:30] LABS: Alanine Aminotransferase 81 U/L (14-59); Albumin Globulin Ratio 1.1; Albumin Level 3.6 g/dL (3.4-5.0); Alkaline Phosphatase 92 U/L (46-116); Amylase 217 U/L (25-115); Anion Gap 9.4; Aspartate Amino Transferase 42 U/L (15-37); BUN Creatinine Ratio 45.9; Bilirubin Total 0.4 mg/dL (0.2-1.0); Calcium 9.9 mg/dL (8.5-10.1); Carbon Dioxide 31.5 mmol/L (21.0-32.0); Chloride 101 mmol/L (98-107); Estimated GFR (African America >60 (>=60); Estimated GFR (Non-African Ame >60 (>=60); Globulin 3.2 g/dL; Glucose 99 mg/dL (74-106); Potassium 3.9 mmol/L (3.5-5.1); Sodium 138 mmol/L (136-145); Total Protein 6.8 g/dL (6.4-8.2)
== END 2024-01-31 10:40 | disposition home or self-care (01) ==
LOC: LAB 10:43
PROVIDERS: PCP Family Medicine; Visit Provider Nurse Practitioner Family
DX: K85.90 Acute pancreatitis without necrosis or infection, unspecified (principal)
CPT/HCPCS: 36415; 80053; 82150; 83690; 85025

== ENCOUNTER 2024-02-01 14:34 | Outpatient (OUT) | payer BC, SELFPAY ==
[2024-02-01 15:09] LABS: Alanine Aminotransferase 91 U/L (14-59); Albumin Globulin Ratio 1.1; Albumin Level 3.6 g/dL (3.4-5.0); Alkaline Phosphatase 99 U/L (46-116); Amylase 135 U/L (25-115); Anion Gap 11.2; Aspartate Amino Transferase 51 U/L (15-37); BUN Creatinine Ratio 43.1; Bilirubin Total 0.3 mg/dL (0.2-1.0); Calcium 9.4 mg/dL (8.5-10.1); Carbon Dioxide 29.8 mmol/L (21.0-32.0); Chloride 102 mmol/L (98-107); Estimated GFR (African America >60 (>=60); Estimated GFR (Non-African Ame >60 (>=60); Globulin 3.3 g/dL; Glucose 117 mg/dL (74-106); Sodium 139 mmol/L (136-145); Total Protein 6.9 g/dL (6.4-8.2)
[2024-02-01 15:28] LABS: Basophils Percent Auto 0.4 % (0.2-2.0); Eosinophils Absolute Auto 0.3 10^3/uL (0.0-0.7); Eosinophils Percent Auto 3.5 % (0.9-7.0); Hematocrit 43.3 % (36.0-48.0); Hemoglobin 14.3 g/dL (12.0-16.0); Immature Granulocytes Abs Auto 0.01 10^3/uL (0.00-0.03); Immature Granulocytes Pct Auto 0.1 % (0.0-0.5); Lymphocytes Absolute Auto 2.1 10^3/uL (1.2-3.8); Lymphocytes Percent Auto 26.8 % (20.5-60.0); Mean Corpuscular Hemoglobin 30.2 pg (26.7-34.0); Mean Corpuscular Volume 91.4 fL (81.0-99.0); Monocytes Absolute Auto 0.7 10^3/uL (0.3-0.8); Monocytes Percent Auto 8.2 % (1.7-12.0); Neutrophils Absolute Auto 4.8 10^3/uL (1.4-6.5); Platelet Count 206 10^3/uL (150-450); Red Blood Count 4.74 10^6/uL (4.20-5.40); Red Cell Distribution Width 11.8 % (11.0-15.0); White Blood Count 7.9 10^3/uL (4.0-11.0)
== END 2024-02-01 14:35 | disposition home or self-care (01) ==
LOC: LAB 14:35
PROVIDERS: PCP Family Medicine; Visit Provider Family Medicine
DX: K85.90 Acute pancreatitis without necrosis or infection, unspecified (principal)
CPT/HCPCS: 36415; 80053; 82150; 83690; 85025

== ENCOUNTER 2024-02-04 12:59 | Outpatient (OUT) | payer BC, SELFPAY ==
[2024-02-04 13:25] LABS: Basophils Percent Auto 0.4 % (0.2-2.0); Eosinophils Absolute Auto 0.2 10^3/uL (0.0-0.7); Eosinophils Percent Auto 2.8 % (0.9-7.0); Hemoglobin 14.9 g/dL (12.0-16.0); Immature Granulocytes Abs Auto 0.01 10^3/uL (0.00-0.03); Immature Granulocytes Pct Auto 0.1 % (0.0-0.5); Lymphocytes Absolute Auto 1.8 10^3/uL (1.2-3.8); Lymphocytes Percent Auto 22.1 % (20.5-60.0); Mean Corpuscular HGB Conc 32.4 g/dL (29.9-35.2); Mean Corpuscular Hemoglobin 29.6 pg (26.7-34.0); Mean Corpuscular Volume 91.5 fL (81.0-99.0); Mean Platelet Volume 9.6 fL (9.5-13.5); Monocytes Percent Auto 11.4 % (1.7-12.0); Neutrophils Absolute Auto 5.3 10^3/uL (1.4-6.5); Neutrophils Percent Auto 63.2 % (43.0-75.0); Platelet Count 220 10^3/uL (150-450); Red Blood Count 5.03 10^6/uL (4.20-5.40); Red Cell Distribution Width 11.9 % (11.0-15.0); White Blood Count 8.3 10^3/uL (4.0-11.0)
[2024-02-04 14:37] LABS: Alanine Aminotransferase 135 U/L (14-59); Albumin Globulin Ratio 1.1; Albumin Level 3.7 g/dL (3.4-5.0); Alkaline Phosphatase 109 U/L (46-116); Amylase 290 U/L (25-115); Aspartate Amino Transferase 71 U/L (15-37); Bilirubin Direct <0.1 mg/dL (0.0-0.2); Bilirubin Total 0.3 mg/dL (0.2-1.0); Globulin 3.5 g/dL; Total Protein 7.2 g/dL (6.4-8.2)
== END 2024-02-04 13:00 | disposition home or self-care (01) ==
LOC: LAB 13:04
PROVIDERS: PCP Family Medicine; Visit Provider Family Medicine
DX: K85.90 Acute pancreatitis without necrosis or infection, unspecified (principal)
CPT/HCPCS: 36415; 80076; 82150; 83690; 85025

== ENCOUNTER 2024-02-04 17:29 | Inpatient (IN) | payer BC, SELFPAY ==
--- NOTE | 2024-02-04 18:10 | CT_ITS ---
[address] [address] Patient Name: JOSE ALBERTO SALEEM MRN: [id number] date: 1965 Sex: F Assigned Patient Location: [place] Current Patient Location: [place] Accession/Order Number: [id number] Exam Date: 02/04/2024 19:30 Report Date: 02/04/2024 20:36 At the request of: ASHLEY GRIGSBY Procedure: CT abdomen pelvis w con EXAM: CT abdomen pelvis w con HISTORY: Abd Pain COMPARISON: 01/25/2024 TECHNIQUE: Axial CT imaging was performed through the abdomen and pelvis with intravenous contrast. Multiplanar reformats were performed. Dose reduction techniques were achieved by using automated exposure control and/or adjustment of mA and/or kV according to patient size and/or use of iterative reconstruction technique. FINDINGS: Lung bases: Lung bases are clear. No pleural effusion. GI upper: Status post gastric bypass surgery. Liver: Normal size and contour. Gallbladder: Cholecystectomy. Biliary system: No intra or extrahepatic biliary ductal dilatation. Spleen: Normal size. Pancreas: Unremarkable. Adrenal glands: Normal adrenal glands. Kidneys/ureters: Normal contours. No hydronephrosis. No nephrolithiasis or ureterolithiasis. There is a 2.6 cm right renal simple cyst. Vessels: No aneurysm. Lymph Nodes: No lymphadenopathy. Small bowel: No wall thickening or dilatation. Colon: No wall thickening or dilatation. Moderate volume stool burden. Appendix: No findings of appendicitis. Peritoneal cavity: No free fluid or pneumoperitoneum. Lower : Unremarkable. Bones: No acute bony abnormality. Soft tissues: No acute finding. Additional findings: None. CT/CT abdomen pelvis w con IMPRESSION: No acute abnormality. Consolidation. Electronically authenticated by: AMALIA BAY Date: 02/04/2024 20:36
--- NOTE | 2024-02-04 18:14 | P.HP_ITS ---
HPI H&P: HPI History of Present Illness Chief complaint: Pancreatitis Narrative: Patient was seen evaluated in the office on 3 occasions, recent discharge from the hospital with acute pancreatitis. No etiology found at that time. She is not a drinker, her scans were unremarkable, triglycerides were normal. She improved while she was in the hospital. But since being out of the hospital her amylase and lipase are continuing to elevate despite trying to modify her diet and strictly with mostly fat-free clear liquids. With her pain worsening and amylase and lipase increasing, she will be admitted for further workup and treatment. When I saw patient she was in moderate distress secondary to pain. Opioid HPI Opioid Management Most Recent Opioid Data: Last Pain Scale 5 02/04/24 17:46 Last Pain Assessment 02/04/24 17:46 Last ORT Total Score 1 02/04/24 17:43 Last ORT Risk Category Low Risk 02/04/24 17:43 [facility] Medical History (Updated 01/28/24 @ 00:00 by ) Acute pancreatitis ?K85.90 - Acute pancreatitis without necrosis or infection, unspecified (ICD- 10) Acute abdomen ?R10.0 - Acute abdomen (ICD-10) Depression ?F32.A - Depression, unspecified (ICD-10) Cataract ?H26.9 - Unspecified cataract (ICD-10) Hyperlipidemia ?E78.5 - Hyperlipidemia, unspecified (ICD-10) History of prediabetes ?Z87.898 - Personal history of other specified conditions (ICD-10) Hypertension ?I10 - Essential (primary) hypertension (ICD-10) Surgical History (Updated 01/25/24 @ 15:50 by Tamanna Stoll) H/O rhinoplasty ?Z98.890 - Other specified postprocedural states (ICD-10) History of carpal tunnel release of both wrists ?Z98.890 - Other specified postprocedural states (ICD-10) H/O gastric bypass ?Z98.84 - Bariatric surgery status (ICD-10) H/O heart artery stent ?Z95.5 - Presence of coronary angioplasty implant and graft (ICD-10) History of quadruple bypass ?Z95.1 - Presence of aortocoronary bypass graft (ICD-10) Hx of appendectomy ?Z90.49 - Acquired absence of other specified parts of digestive tract (ICD- 10) H/O hernia repair ?Z98.890 - Other specified postprocedural states (ICD-10) ?Z87.19 - Personal history of other diseases of the digestive system (ICD-10) Hx of cholecystectomy ?Z90.49 - Acquired absence of other specified parts of digestive tract (ICD- 10) Family History (Updated 01/25/24 @ 15:51 by Tamanna Stoll) Mother Family history of CHF (congestive heart failure) Family history of hypertension Father Family history of CHF (congestive heart failure) Family history of COPD (chronic obstructive pulmonary disease) Brother Family history of CHF (congestive heart failure) Family history of stroke Family history of myocardial infarction Family history of hypertension Grandmother Family history of cancer Sister Family history of hypertension Social History Highest level of school completed/degree received: Bachelor's degree Meds Home Medications and Allergies Home Medications ?Medication ?Instructions ?Recorded ?Confirmed ?Type aspirin 81 mg tablet,delayed 81 mg PO BEDTIME 01/25/24 01/25/24 History release atorvastatin 20 mg tablet 20 mg PO BEDTIME 01/25/24 01/25/24 History cevimeline 30 mg capsule 30 mg PO TID 01/25/24 01/25/24 History citalopram 40 mg tablet 40 mg PO DAILY 01/25/24 01/25/24 History fluticasone propionate 50 2 spray intranasal BID 01/25/24 01/25/24 History mcg/actuation nasal spray,suspension hydrochlorothiazide 12.5 mg tablet 12.5 mg PO DAILY 01/25/24 01/25/24 History rabeprazole 20 mg tablet,delayed 20 mg PO BID 01/25/24 01/25/24 History release tamsulosin 0.4 mg capsule 0.4 mg PO DAILY 01/25/24 01/25/24 History tramadol 50 mg tablet 50 mg PO Q6H PRN pain 01/25/24 01/25/24 History Allergies Allergy/AdvReac Type Severity Reaction Status Date / Time latex Allergy Severe Anaphylaxis Verified 01/25/24 16:00 Penicillins Allergy Intermediate Hives Verified 01/25/24 16:00 Sulfa (Sulfonamide Allergy Intermediate Verified 01/25/24 16:00 Antibiotics) adhesive tape AdvReac Verified 01/25/24 16:00 Exam Constitutional Documenting provider has reviewed patient's vital signs: yes Common normals: apparent distress (Moderate painful distress) Chest Common normals: inspection of chest normal Respiratory Common normals: normal respiratory effort, no retractions and no use of accessory muscles Cardio Common normals: no JVD, regular rate and regular rhythm GI Common normals: soft to palpation and no masses; tender Palpation: tender (Tender more upper abdomen-no rebound tenderness) Extremity Common normals: normal to inspection and full ROM Neuro Common normals: oriented x3, CN's II-XII intact bilaterally and moves all extr emities Assessment and Plan Assessment and Plan (1) Acute pancreatitis: Plan Patient with increasing abdominal pain and failed outpatient treatment of acute pancreatitis with the addition of dehydration -amylase and lipase have increased over the last 24 to 36 hours. Liver enzymes also elevating. Will admit patient, check labs, check blood cultures, start antibiotic for possible ascending cholangitis, check CT scan abdomen and pelvis with contrast. N.p.o. status. May need MRCP. GERD with a history of gastritis-IV Protonix Hypertension treated with hydrochlorothiazide-hold off for now, patient dehydrated currently. Hypercholesterolemia-we will hold that medication Admission status: Patient replaced inpatient status. She has failed outpatient treatment as well as inpatient observational type treatment. With her symptoms progressing she is likely here 3 to 4 days minimum. Medically necessary treatment will span 2 midnights. Inpatient status.
[2024-02-04 18:32] VITALS: BP 155/89; PULSE 61; TEMP 36.6; O2SAT 96; BMI 30.1
[2024-02-04 18:55] LABS: Basophils Percent Auto 0.4 % (0.2-2.0); Eosinophils Absolute Auto 0.3 10^3/uL (0.0-0.7); Eosinophils Percent Auto 3.4 % (0.9-7.0); Hematocrit 44.9 % (36.0-48.0); Hemoglobin 14.5 g/dL (12.0-16.0); Immature Granulocytes Abs Auto 0.01 10^3/uL (0.00-0.03); Immature Granulocytes Pct Auto 0.1 % (0.0-0.5); Lymphocytes Percent Auto 25.7 % (20.5-60.0); Mean Corpuscular HGB Conc 32.3 g/dL (29.9-35.2); Mean Corpuscular Hemoglobin 29.7 pg (26.7-34.0); Mean Platelet Volume 9.7 fL (9.5-13.5); Monocytes Absolute Auto 0.7 10^3/uL (0.3-0.8); Monocytes Percent Auto 9.1 % (1.7-12.0); Neutrophils Absolute Auto 4.6 10^3/uL (1.4-6.5); Neutrophils Percent Auto 61.3 % (43.0-75.0); Platelet Count 206 10^3/uL (150-450); Red Blood Count 4.88 10^6/uL (4.20-5.40); Red Cell Distribution Width 11.9 % (11.0-15.0); White Blood Count 7.6 10^3/uL (4.0-11.0)
[2024-02-04 19:01] LABS: Bilirubin Urine NEGATIVE (NEGATIVE); Blood Urine NEGATIVE (NEGATIVE); Clarity Urine CLEAR (CLEAR); Color Urine LT. YELLOW (YELLOW); Glucose Urine UA NEGATIVE (NEGATIVE); Ketones Urine NEGATIVE (NEGATIVE); Leukocyte Esterase Urine TRACE (NEGATIVE); Nitrite Urine NEGATIVE (NEGATIVE); Protein Urine NEGATIVE (NEG/TRACE); Specific Gravity Urine <=1.005 (1.005-1.025); Urobilinogen Urine 0.2 EU/dL (0.2-1.0); pH Urine 5.5 (5.0-9.0)
[2024-02-04 19:09] LABS: WBC Urine 0-2 #/HPF (NONE SEEN)
[2024-02-04 19:10] LABS: Bacteria Urine NONE SEEN #/HPF (NONE SEEN); Cast Seen? NONE SEEN #/LPF (NONE SEEN); Crystals Seen? None Seen #/HPF (None Seen); Mucus Urine NONE SEEN (NONE SEEN); RBC Urine NONE SEEN #/HPF (0-2); Squamous Epithelial Cell Urine NONE SEEN #/LPF (NONE/RARE); Urine Culture Indicated NO
[2024-02-04 19:12] LABS: Ammonia 23 umol/L (11-32)
[2024-02-04 19:21] LABS: Lactate/Lactic Acid 0.9 mmol/L (0.4-2.0)
[2024-02-04 19:25] LABS: Alanine Aminotransferase 135 U/L (14-59); Albumin Globulin Ratio 1.1; Albumin Level 3.7 g/dL (3.4-5.0); Alkaline Phosphatase 102 U/L (46-116); Amylase 268 U/L (25-115); Anion Gap 11.2; Aspartate Amino Transferase 75 U/L (15-37); BUN Creatinine Ratio 49.1; Bilirubin Total 0.4 mg/dL (0.2-1.0); Calcium 9.9 mg/dL (8.5-10.1); Carbon Dioxide 28.7 mmol/L (21.0-32.0); Chloride 101 mmol/L (98-107); Estimated GFR (African America >60 (>=60); Estimated GFR (Non-African Ame >60 (>=60); Globulin 3.3 g/dL; Glucose 99 mg/dL (74-106); Magnesium 2.4 mg/dL (1.8-2.4); Potassium 3.9 mmol/L (3.5-5.1); Sodium 137 mmol/L (136-145)
[2024-02-04] MEDS: CLINDAMYCIN PHOSPHATE/D5W 600 MG/50 ML PIGGYBACK 100 MG IV (19:51)
[2024-02-04] MEDS: 0.9 % SODIUM CHLORIDE 1,000 ML 500 ML IV ×2 (19:51→22:51)
[2024-02-04 19:52] VITALS: O2SAT 99
[2024-02-04] MEDS: KETOROLAC TROMETHAMINE 30 MG/ML VIAL IVP (20:28)
[2024-02-04] MEDS: CEFTAZIDIME 2,000 MG in 0.9 % SODIUM CHLORIDE 100 ML 200 MG IV (20:29)
[2024-02-04] MEDS: PANTOPRAZOLE SODIUM 40 MG VIAL IV (20:29)
[2024-02-05] VITALS (8 sets, daily range): BP systolic 118–152; BP diastolic 61–75; PULSE 52–58; TEMP 36.4–36.8; O2SAT 91–97
[2024-02-05] MEDS: LACTATED RINGER'S SOLUTION 1,000 ML 100 ML IV ×3 (00:53→22:12)
[2024-02-05] MEDS: 0.9 % SODIUM CHLORIDE 250 ML 10 ML IV (02:26)
[2024-02-05] MEDS: CLINDAMYCIN PHOSPHATE/D5W 600 MG/50 ML PIGGYBACK 100 MG IV ×3 (02:26→15:06)
[2024-02-05] MEDS: CEFTAZIDIME 2,000 MG in 0.9 % SODIUM CHLORIDE 100 ML 200 MG IV ×2 (04:12→12:35)
[2024-02-05 05:17] LABS: Basophils Percent Auto 0.2 % (0.2-2.0); Eosinophils Absolute Auto 0.3 10^3/uL (0.0-0.7); Eosinophils Percent Auto 4.6 % (0.9-7.0); Hematocrit 40.4 % (36.0-48.0); Hemoglobin 12.9 g/dL (12.0-16.0); Immature Granulocytes Abs Auto 0.01 10^3/uL (0.00-0.03); Immature Granulocytes Pct Auto 0.2 % (0.0-0.5); Lymphocytes Absolute Auto 2.3 10^3/uL (1.2-3.8); Lymphocytes Percent Auto 40.4 % (20.5-60.0); Mean Corpuscular HGB Conc 31.9 g/dL (29.9-35.2); Mean Corpuscular Hemoglobin 29.6 pg (26.7-34.0); Mean Corpuscular Volume 92.7 fL (81.0-99.0); Mean Platelet Volume 9.8 fL (9.5-13.5); Monocytes Absolute Auto 0.6 10^3/uL (0.3-0.8); Monocytes Percent Auto 10.6 % (1.7-12.0); Neutrophils Absolute Auto 2.5 10^3/uL (1.4-6.5); Platelet Count 167 10^3/uL (150-450); Red Blood Count 4.36 10^6/uL (4.20-5.40); Red Cell Distribution Width 11.9 % (11.0-15.0); White Blood Count 5.6 10^3/uL (4.0-11.0)
[2024-02-05] MEDS: KETOROLAC TROMETHAMINE 30 MG/ML VIAL IVP ×3 (05:25→19:48)
[2024-02-05 05:35] LABS: Alanine Aminotransferase 108 U/L (14-59); Albumin Globulin Ratio 1.1; Alkaline Phosphatase 85 U/L (46-116); Amylase 232 U/L (25-115); Anion Gap 10.7; Aspartate Amino Transferase 58 U/L (15-37); Bilirubin Total 0.3 mg/dL (0.2-1.0); Calcium 9.1 mg/dL (8.5-10.1); Carbon Dioxide 28.3 mmol/L (21.0-32.0); Chloride 107 mmol/L (98-107); Estimated GFR (African America >60 (>=60); Estimated GFR (Non-African Ame >60 (>=60); Globulin 2.8 g/dL; Glucose 87 mg/dL (74-106); Sodium 142 mmol/L (136-145); Total Protein 5.8 g/dL (6.4-8.2)
--- NOTE | 2024-02-05 07:36 | P.PN_ITS ---
Progress Note: Subjective Subjective Interval history: Feels overall better today, less fatigue, pain however persisting. Pain back up to a level of 7. Exam Constitutional Vital Signs, click to edit/add: Last Vital Signs Temp 97.6 F 02/05/24 03:15 Pulse 58 L 02/05/24 03:15 Resp 20 02/05/24 03:15 BP 118/68 02/05/24 03:15 Pulse Ox 94 L 02/05/24 03:15 O2 Del Method Room Air 02/05/24 03:15 Documenting provider has reviewed patient's vital signs: yes Common normals: apparent distress (Moderate painful distress-persisting) Chest Common normals: inspection of chest normal Respiratory Common normals: normal respiratory effort, no retractions and no use of accessory muscles Cardio Common normals: no JVD, regular rate and regular rhythm GI Common normals: soft to palpation and no masses; tender Palpation: tender (Tender more upper abdomen-no rebound tenderness) Extremity Common normals: normal to inspection and full ROM Neuro Common normals: oriented x3, CN's II-XII intact bilaterally and moves all extremities Progress Note: Objective Labs Labs: Short CBC 02/04/24 02/05/24 Range/Units 18:37 04:53 WBC 7.6 5.6 (4.0-11.0) 10^3/uL Hgb 14.5 12.9 (12.0-16.0) g/dL Hct 44.9 40.4 (36.0-48.0) % Plt Count 206 167 (150-450) 10^3/uL BMP 02/04/24 02/05/24 18:37 04:53 Sodium 137 142 Potassium 3.9 4.0 Chloride 101 107 Carbon Dioxide 28.7 28.3 BUN 28.0 H 21.0 H Creatinine 0.57 0.60 Glucose 99 87 Calcium 9.9 9.1 Liver Function 02/04/24 02/05/24 Range/Units 18:37 04:53 Total Bilirubin 0.4 0.3 (0.2-1.0) mg/dL AST 75 H 58 H (15-37) U/L ALT 135 H 108 H (14-59) U/L Alkaline Phosphatase 102 85 (46-116) U/L Albumin 3.7 3.0 L (3.4-5.0) g/dL Urine 02/04/24 Range/Units 18:30 Urine Color Lt. yellow (YELLOW) Urine Clarity Clear (CLEAR) Urine pH 5.5 (5.0-9.0) Ur Specific [place] <=1.005 A (1.005-1.025) Urine Protein Negative (NEG/TRACE) mg/dL Urine Glucose (UA) Negative (NEGATIVE) mg/dL Progress Note: A&P Assessment and Plan (1) Acute pancreatitis: Plan Admission findings: Patient with increasing abdominal pain and failed outpatient treatment of acute pancreatitis with the addition of dehydration -amylase and lipase have increased over the last 24 to 36 hours. Liver enzymes also elevating. Will admit patient, check labs, check blood cultures, start antibiotic for possible ascending cholangitis, check CT scan abdomen and pelvis with contrast. N.p.o. status. May need MRCP. - Patient overall improved today. Her BUN elevation on admission consistent with dehydration is improved. However her pain is persisting and is worse this morning. With acute pancreatitis now progressing into the range of chronic pancreatitis without significant etiology found (patient does not abuse alcohol, her triglycerides were normal, no masses or fluid collection seen on CT scan in biliary area or pancreas) CT scan negative x 2, recommending MRCP for evaluation of possible retained stone, (patient status post cholecystectomy), possible pancreas divisum. Maintain n.p.o. status throughout today. White blood cell count is normal, maintain IV antibiotics secondary to elevated liver function test high risk for ascending cholangitis until etiology of her pancreatitis has been determined GERD with a history of gastritis-IV Protonix Hypertension treated with hydrochlorothiazide-hold off for now, patient dehydrated currently. Hypercholesterolemia-we will hold that medication Admission status: Patient Placed inpatient status. She has failed outpatient treatment as well as inpatient treatment. With her symptoms progressing she is likely here 3 to 4 days minimum. Medically necessary treatment will span 2 midnights. Inpatient status. ?
--- NOTE | 2024-02-05 07:37 | MR_ITS ---
The [address] [address] Patient Name: JOSE ALBERTO SALEEM MRN: [id number] date: 1965 Sex: F Assigned Patient Location: Current Patient Location: Accession/Order Number: [id number] Exam Date: 02/05/2024 14:17 Report Date: 02/05/2024 17:15 At the request of: ASHLEY GRIGSBY Procedure: MR abdomen wo con EXAM: MR abdomen WO con, (MRCP) 02/05/2024. COMPARISON STUDY: CT of the abdomen and pelvis with contrast 02/04/2024. HISTORY: Acute turning to chronic pancreatitis. Nausea and abdominal pain. TECHNIQUE: Coronal T2, axial T1 in and [id number], axial T2 with and without fat saturation as well as heavily fat-saturated coronal oblique T2-weighted images were obtained without the use of contrast. FINDINGS: Prior median sternotomy noted. Gallbladder is surgically absent. Right hepatic lobe measures 15.5 cm superior to inferior. The spleen measures 12.4 cm superior to inferior. Heart size is stable. Lung bases are clear. Liver, pancreas, spleen, adrenals and kidneys demonstrate no acute abnormality. Prior gastric bypass noted. Bowel pattern is nonobstructive. Mild stable biliary ductal prominence not uncommonly seen in patients status post cholecystectomy. The common hepatic duct has AP diameter of 6 mm. Proximal common bile duct has a diameter of 7 mm. This tapers as it approaches the ampulla. Negative for choledocholithiasis. Main pancreatic duct demonstrates normal caliber. An upper pole right renal cyst noted within the medial cortex measures 5 mm. A midpole cyst within the anterior cortex measures 2.6 cm. No abnormal peripancreatic inflammatory changes on the T2 fat-saturated images. MR/MR abdomen wo con IMPRESSION: 1. Prior cholecystectomy and gastric bypass. Overall no acute intra-abdominal process suspected. 2. No significant biliary or pancreatic ductal dilatation. Negative for choledocholithiasis or evidence of pancreatitis. Main pancreatic duct demonstrates normal caliber. 3. Benign-appearing right renal cyst. Electronically authenticated by: HAWK HULL Date: 02/05/2024 17:15
[2024-02-05] MEDS: CLINDAMYCIN PHOSPHATE/D5W 600 MG/50 ML PIGGYBACK 50 MG IV (22:13)
[2024-02-05] MEDS: ONDANSETRON PF 4 MG/2 ML VIAL IV (22:13)
[2024-02-05] MEDS: PANTOPRAZOLE SODIUM 40 MG VIAL IV (22:13)
[2024-02-05] MEDS: HYOSCYAMINE SULFATE 0.125 MG TAB.SUBL SL (22:13)
[2024-02-05] MEDS: CEFTAZIDIME 2,000 MG in 0.9 % SODIUM CHLORIDE 100 ML 100 MG IV (22:18)
[2024-02-06] VITALS (8 sets, daily range): BP systolic 117–155; BP diastolic 59–83; PULSE 43–54; TEMP 36.4–36.6; O2SAT 91–97
[2024-02-06] MEDS: MORPHINE SULFATE 2 MG/ML SYRINGE IV (00:03)
[2024-02-06] MEDS: CLINDAMYCIN PHOSPHATE/D5W 600 MG/50 ML PIGGYBACK 100 MG IV ×4 (04:43→22:25)
[2024-02-06] MEDS: KETOROLAC TROMETHAMINE 30 MG/ML VIAL IVP ×3 (04:53→22:26)
[2024-02-06] MEDS: CEFTAZIDIME 2,000 MG in 0.9 % SODIUM CHLORIDE 100 ML 200 MG IV ×3 (05:00→22:46)
[2024-02-06 05:16] LABS: Basophils Percent Auto 0.2 % (0.2-2.0); Eosinophils Absolute Auto 0.3 10^3/uL (0.0-0.7); Eosinophils Percent Auto 5.5 % (0.9-7.0); Hematocrit 39.7 % (36.0-48.0); Hemoglobin 12.7 g/dL (12.0-16.0); Immature Granulocytes Abs Auto 0.01 10^3/uL (0.00-0.03); Immature Granulocytes Pct Auto 0.2 % (0.0-0.5); Lymphocytes Percent Auto 38.6 % (20.5-60.0); Mean Corpuscular Hemoglobin 29.7 pg (26.7-34.0); Mean Corpuscular Volume 92.8 fL (81.0-99.0); Mean Platelet Volume 9.7 fL (9.5-13.5); Monocytes Absolute Auto 0.5 10^3/uL (0.3-0.8); Neutrophils Absolute Auto 2.3 10^3/uL (1.4-6.5); Neutrophils Percent Auto 45.5 % (43.0-75.0); Platelet Count 160 10^3/uL (150-450); Red Blood Count 4.28 10^6/uL (4.20-5.40); Red Cell Distribution Width 11.9 % (11.0-15.0); White Blood Count 5.1 10^3/uL (4.0-11.0)
[2024-02-06 05:28] LABS: Alanine Aminotransferase 91 U/L (14-59); Albumin Globulin Ratio 1.1; Alkaline Phosphatase 89 U/L (46-116); Amylase 104 U/L (25-115); Aspartate Amino Transferase 44 U/L (15-37); Bilirubin Total 0.3 mg/dL (0.2-1.0); Calcium 8.9 mg/dL (8.5-10.1); Carbon Dioxide 29.1 mmol/L (21.0-32.0); Chloride 106 mmol/L (98-107); Estimated GFR (African America >60 (>=60); Estimated GFR (Non-African Ame >60 (>=60); Globulin 2.8 g/dL; Glucose 83 mg/dL (74-106); Potassium 4.1 mmol/L (3.5-5.1); Sodium 141 mmol/L (136-145); Total Protein 5.8 g/dL (6.4-8.2)
--- NOTE | 2024-02-06 07:25 | P.DS_ITS ---
DS: Providers Provider Date of admission: 02/04/24 18:06 Primary care physician: Ziggy Dejesus MD Consults: 02/04/24 18:06 Consult to Pharmacy Routine Consulting Provider: Reason for consultation: Please [place] me when Med Rec is Updated Has provider been notified: No DS: Diagnosis Discharge Diagnosis (1) Acute pancreatitis: Assessment and plan: Admission findings: Patient with increasing abdominal pain and failed outpatient treatment of acute pancreatitis with the addition of dehydration -amylase and lipase have increased over the last 24 to 36 hours. Liver enzymes also elevating. -Improving at the time of discharge GERD with a history of gastritis-stable at discharge Hypertension treated with hydrochlorothiazide-stable at discharge Hypercholesterolemia-monitor as outpatient Admission status: Patient Placed inpatient status. She has failed outpatient treatment as well as inpatient treatment. With her symptoms progressing she is likely here 3 to 4 days minimum. Medically necessary treatment will span 2 midnights. Inpatient status. ? ? DS: Summary Hospital Course Hospital Course: Patient's over the last month has had recurrence of her acute pancreatitis. On admission withAdmission findings: Patient with increasing abdominal pain and failed outpatient treatment of acute pancreatitis with the addition of dehydration -amylase and lipase have increased over the last 24 to 36 hours. Liver enzymes also elevating. Will admit patient, check labs, check blood cultures, start antibiotic for possible ascending cholangitis, check CT scan abdomen and pelvis with contrast. N.p.o. status. May need MRCP. - Following day patient was somewhat improved, her BUN elevation on admission consistent with dehydration is improved. However her pain is persisting and is worse this morning. With acute pancreatitis now progressing into the range of chronic pancreatitis without significant etiology found (patient does not abuse alcohol, her triglycerides were normal, no masses or fluid collection seen on CT scan in biliary area or pancreas) CT scan negative x 2, recommending MRCP for evaluation of possible retained stone, (patient status post cholecystectomy), possible pancreas divisum. MRI scan completed without difficulty, did not show any etiology for her pancreatitis. No retained stone, no pancreas divisum. On day of discharge her pain is improving. Still persisting. Amylase and lipase have returned to normal liver function test continue to improve. Patient has had excellent urine output so dehydration likely resolved. At this point we will advance patient to clear liquid diet, further advance of lunch if tolerates clear liquid, start the process of getting her into Dr. Ross's office - pancreatitis just in [place]. Medications see list. I will follow-up with patient as an outpatient within the next few days. Status at Discharge Overall status at discharge: patient is not back to baseline Time Spent with Patient Time attestation: Total time spent providing and/or coordinating discharge services: Time spent: greater than 30 minutes Exam Constitutional Vital Signs, click to edit/add: Last Vital Signs Temp 97.7 F 02/06/24 00:19 Pulse 46 L 02/06/24 00:19 Resp 18 02/06/24 00:19 BP 131/75 02/06/24 00:19 Pulse Ox 91 L 02/06/24 04:32 O2 Del Method Room Air 02/06/24 04:32 Documenting provider has reviewed patient's vital signs: yes Common normals: no apparent distress Chest Common normals: inspection of chest normal Respiratory Common normals: normal respiratory effort, no retractions and no use of accessory muscles Cardio Common normals: no JVD, regular rate and regular rhythm GI Common normals: soft to palpation and no masses; tender (Minimal left-sided tenderness, more tenderness over the ribs.) Palpation: tender (Minimal tenderness left-sided. More tender over ribs); no rebound tenderness present Extremity Common normals: normal to inspection and full ROM Neuro Common normals: oriented x3, CN's II-XII intact bilaterally and moves all extremities DS: Data Data Completed and Pending Labs on day of discharge: Labs from last 24 hours 02/06/24 04:44 WBC 5.1 RBC 4.28 Hgb 12.7 Hct 39.7 MCV 92.8 MCH 29.7 MCHC 32.0 RDW 11.9 Plt Count 160 MPV 9.7 Neut % (Auto) 45.5 Lymph % (Auto) 38.6 Door % (Auto) 10.0 Eos % (Auto) 5.5 Baso % (Auto) 0.2 Neut # (Auto) 2.3 Lymph # (Auto) 2.0 Door # (Auto) 0.5 Eos # (Auto) 0.3 Baso # (Auto) 0.0 Abs Immat Gran (auto) 0.01 Imm/Tot Granulo (auto) 0.2 Sodium 141 Potassium 4.1 Chloride 106 Carbon Dioxide 29.1 Anion Gap 10.0 BUN 12.0 Creatinine 0.63 Est GFR ( Amer) >60 Est GFR (Non-Af Amer) >60 BUN/Creatinine Ratio 19.0 Glucose 83 Calcium 8.9 Total Bilirubin 0.3 AST 44 H ALT 91 H Alkaline Phosphatase 89 Total Protein 5.8 L Albumin 3.0 L Globulin 2.8 Albumin/Globulin Ratio 1.1 Amylase 104 Lipase 47.0 Discharge Plan Discharge Disposition: Home, Self-Care Discharge Medications: Continued aspirin 81 mg tablet,delayed release (DR/EC) 81 mg PO BEDTIME atorvastatin 20 mg tablet 20 mg PO BEDTIME cevimeline 30 mg capsule 30 mg PO TID citalopram 40 mg tablet 40 mg PO DAILY fluticasone propionate 50 mcg/actuation spray,suspension 2 spray INTRANASAL BID rabeprazole 20 mg tablet,delayed release (DR/EC) 20 mg PO BID tamsulosin 0.4 mg capsule 0.4 mg PO DAILY tramadol 50 mg tablet 50 mg PO Q6H PRN (Reason: pain) Discontinued hydrochlorothiazide 12.5 mg tablet 6.25 mg PO DAILY Print Language: Tajik Forms: Portal Instructions
[2024-02-06] MEDS: 0.9 % SODIUM CHLORIDE 250 ML 10 ML IV (09:51)
[2024-02-06] MEDS: ONDANSETRON PF 4 MG/2 ML VIAL IV ×2 (15:31→22:26)
[2024-02-06] MEDS: HYOSCYAMINE SULFATE 0.125 MG TAB.SUBL SL (22:25)
[2024-02-06] MEDS: PANTOPRAZOLE SODIUM 40 MG VIAL IV (22:26)
[2024-02-07] MEDS: CLINDAMYCIN PHOSPHATE/D5W 600 MG/50 ML PIGGYBACK 100 MG IV ×2 (02:59→09:10)
[2024-02-07] MEDS: CEFTAZIDIME 2,000 MG in 0.9 % SODIUM CHLORIDE 100 ML 200 MG IV (03:36)
[2024-02-07 04:00] VITALS: BP 127/61; PULSE 46; TEMP 36.4; O2SAT 98
[2024-02-07 04:18] VITALS: O2SAT 95
[2024-02-07 05:42] LABS: Basophils Percent Auto 0.4 % (0.2-2.0); Eosinophils Absolute Auto 0.3 10^3/uL (0.0-0.7); Eosinophils Percent Auto 5.2 % (0.9-7.0); Hematocrit 38.9 % (36.0-48.0); Hemoglobin 12.6 g/dL (12.0-16.0); Immature Granulocytes Abs Auto 0.01 10^3/uL (0.00-0.03); Immature Granulocytes Pct Auto 0.2 % (0.0-0.5); Mean Corpuscular HGB Conc 32.4 g/dL (29.9-35.2); Mean Corpuscular Hemoglobin 29.7 pg (26.7-34.0); Mean Corpuscular Volume 91.7 fL (81.0-99.0); Mean Platelet Volume 9.8 fL (9.5-13.5); Monocytes Absolute Auto 0.6 10^3/uL (0.3-0.8); Monocytes Percent Auto 10.5 % (1.7-12.0); Neutrophils Absolute Auto 2.5 10^3/uL (1.4-6.5); Neutrophils Percent Auto 46.7 % (43.0-75.0); Platelet Count 152 10^3/uL (150-450); Red Blood Count 4.24 10^6/uL (4.20-5.40); White Blood Count 5.4 10^3/uL (4.0-11.0)
[2024-02-07 06:16] LABS: Alanine Aminotransferase 73 U/L (14-59); Albumin Globulin Ratio 1.1; Albumin Level 3.1 g/dL (3.4-5.0); Alkaline Phosphatase 81 U/L (46-116); Amylase 110 U/L (25-115); Anion Gap 11.1; Aspartate Amino Transferase 29 U/L (15-37); BUN Creatinine Ratio 15.4; Bilirubin Total 0.3 mg/dL (0.2-1.0); Calcium 8.9 mg/dL (8.5-10.1); Carbon Dioxide 28.7 mmol/L (21.0-32.0); Chloride 105 mmol/L (98-107); Estimated GFR (African America >60 (>=60); Estimated GFR (Non-African Ame >60 (>=60); Globulin 2.8 g/dL; Glucose 85 mg/dL (74-106); Potassium 3.8 mmol/L (3.5-5.1); Sodium 141 mmol/L (136-145); Total Protein 5.9 g/dL (6.4-8.2)
--- NOTE | 2024-02-07 07:24 | P.PN_ITS ---
Progress Note: Subjective Subjective Interval history: Feels overall better today, less fatigue, hungry this morning Exam Constitutional Vital Signs, click to edit/add: Last Vital Signs Temp 97.5 F L 02/07/24 04:00 Pulse 46 L 02/07/24 04:00 Resp 18 02/07/24 04:00 BP 127/61 02/07/24 04:00 Pulse Ox 95 02/07/24 04:18 O2 Del Method Room Air 02/07/24 04:18 Documenting provider has reviewed patient's vital signs: yes Common normals: apparent distress (Moderate painful distress-persisting) Chest Common normals: inspection of chest normal Respiratory Common normals: normal respiratory effort, no retractions and no use of accessory muscles Cardio Common normals: no JVD, regular rate and regular rhythm GI Common normals: soft to palpation and no masses; tender Palpation: tender (Less tender than previous) Extremity Common normals: normal to inspection and full ROM Neuro Common normals: oriented x3, CN's II-XII intact bilaterally and moves all extremities Progress Note: Objective Labs Labs: Short CBC 02/07/24 Range/Units 04:49 WBC 5.4 (4.0-11.0) 10^3/uL Hgb 12.6 (12.0-16.0) g/dL Hct 38.9 (36.0-48.0) % Plt Count 152 (150-450) 10^3/uL BMP 02/07/24 04:49 Sodium 141 Potassium 3.8 Chloride 105 Carbon Dioxide 28.7 BUN 10.0 Creatinine 0.65 Glucose 85 Calcium 8.9 Liver Function 02/07/24 Range/Units 04:49 Total Bilirubin 0.3 (0.2-1.0) mg/dL AST 29 (15-37) U/L ALT 73 H (14-59) U/L Alkaline Phosphatase 81 (46-116) U/L Albumin 3.1 L (3.4-5.0) g/dL Progress Note: A&P Assessment and Plan (1) Acute pancreatitis: Assessment and Plan: Admission findings: Patient with increasing abdominal pain and failed outpatient treatment of acute pancreatitis with the addition of dehydration -amylase and lipase have increased over the last 24 to 36 hours. Liver enzymes also elevating. MRCP ordered yesterday secondary to progression of symptoms, no new findings on MRCP. No pancreas divisum or masses or retained stone. Will advance diet this morning and see how she progresses GERD with a history of gastritis-continue current treatment Hypertension treated with hydrochlorothiazide-continue current treatment Hypercholesterolemia-monitor as outpatient Admission status: Patient Placed inpatient status. She has failed outpatient treatment as well as inpatient treatment. With her symptoms progressing she is likely here 3 to 4 days minimum. Medically necessary treatment will span 2 midnights. Inpatient status.
--- NOTE | 2024-02-07 07:32 | P.DS_ITS ---
DS: Providers Provider Date of admission: 02/04/24 18:06 Primary care physician: Ziggy Dejesus MD Consults: 02/04/24 18:06 Consult to Pharmacy Routine Consulting Provider: Reason for consultation: Please Barry me when Med Rec is Updated Has provider been notified: No 02/06/24 07:31 Consult to Pharmacy Routine Consulting Provider: Reason for consultation: home meds that may cause pancreatitis Has provider been notified: No DS: Diagnosis Discharge Diagnosis (1) Acute pancreatitis: Plan Admission findings: Patient with increasing abdominal pain and failed outpatient treatment of acute pancreatitis with the addition of dehydration -amylase and lipase have increased over the last 24 to 36 hours. Liver enzymes also elevating. -Improving at the time of discharge GERD with a history of gastritis-stable at discharge Hypertension treated with hydrochlorothiazide-stable at discharge Hypercholesterolemia-monitor as outpatient Moderate protein calorie malnutrition-diet management,-secondary to the above Admission status: Patient Placed inpatient status. She has failed outpatient treatment as well as inpatient treatment. With her symptoms progressing she is likely here 3 to 4 days minimum. Medically necessary treatment will span 2 midnights. Inpatient status. ? DS: Summary Hospital Course Hospital Course: Patient's over the last month has had recurrence of her acute pancreatitis. On admission withAdmission findings: Patient with increasing abdominal pain and failed outpatient treatment of acute pancreatitis with the addition of dehydration -amylase and lipase have increased over the last 24 to 36 hours. Liver enzymes also elevating. Will admit patient, check labs, check blood cultures, start antibiotic for possible ascending cholangitis, check CT scan abdomen and pelvis with contrast. N.p.o. status. May need MRCP. - Following day patient was somewhat improved, her BUN elevation on admission consistent with dehydration is improved. However her pain is persisting and is worse this morning. With acute pancreatitis now progressing into the range of chronic pancreatitis without significant etiology found (patient does not abuse alcohol, her triglycerides were normal, no masses or fluid collection seen on CT scan in biliary area or pancreas) CT scan negative x 2, recommending MRCP for evaluation of possible retained stone, (patient status post cholecystectomy), possible pancreas divisum. MRI scan completed without difficulty, did not show any etiology for her pancreatitis. No retained stone, no pancreas divisum. On day of discharge her pain is improving. Still persisting. Amylase and lipase have returned to normal liver function test continue to improve. Patient has had excellent urine output so dehydration likely resolved. At this point we will advance patient to clear liquid diet, further advance of lunch if tolerates clear liquid, start the process of getting her into Dr. Ross's office - pancreatitis just in [place]. Medications see list. I will follow-up with patient as an outpatient within the next few days. Time Spent with Patient Time attestation: Total time spent providing and/or coordinating discharge services: Time spent: greater than 30 minutes Exam Constitutional Vital Signs, click to edit/add: Last Vital Signs Temp 97.5 F L 02/07/24 04:00 Pulse 46 L 02/07/24 04:00 Resp 18 02/07/24 04:00 BP 127/61 02/07/24 04:00 Pulse Ox 95 02/07/24 04:18 O2 Del Method Room Air 02/07/24 04:18 Documenting provider has reviewed patient's vital signs: yes Common normals: apparent distress (Moderate painful distress-persisting) Chest Common normals: inspection of chest normal Respiratory Common normals: normal respiratory effort, no retractions and no use of accessory muscles Cardio Common normals: no JVD, regular rate and regular rhythm GI Common normals: soft to palpation and no masses; tender Palpation: tender (Less tender than previous) Extremity Common normals: normal to inspection and full ROM Neuro Common normals: oriented x3, CN's II-XII intact bilaterally and moves all extremities DS: Data Data Completed and Pending Labs on day of discharge: Labs from last 24 hours 02/07/24 04:49 WBC 5.4 RBC 4.24 Hgb 12.6 Hct 38.9 MCV 91.7 MCH 29.7 MCHC 32.4 RDW 12.0 Plt Count 152 MPV 9.8 Neut % (Auto) 46.7 Lymph % (Auto) 37.0 Cameron % (Auto) 10.5 Eos % (Auto) 5.2 Baso % (Auto) 0.4 Neut # (Auto) 2.5 Lymph # (Auto) 2.0 Cameron # (Auto) 0.6 Eos # (Auto) 0.3 Baso # (Auto) 0.0 Abs Immat Gran (auto) 0.01 Imm/Tot Granulo (auto) 0.2 Sodium 141 Potassium 3.8 Chloride 105 Carbon Dioxide 28.7 Anion Gap 11.1 BUN 10.0 Creatinine 0.65 Est GFR ( Amer) >60 Est GFR (Non-Af Amer) >60 BUN/Creatinine Ratio 15.4 Glucose 85 Calcium 8.9 Total Bilirubin 0.3 AST 29 ALT 73 H Alkaline Phosphatase 81 Total Protein 5.9 L Albumin 3.1 L Globulin 2.8 Albumin/Globulin Ratio 1.1 Amylase 110 Lipase 58.0 Preliminary micro results at discharge 02/04/24 18:46 - Preliminary Blood NO GROWTH AT 36-48 HOURS. FINAL TO FOLLOW. 02/04/24 18:37 Blood Culture Result 1 - Preliminary Blood NO GROWTH AT 36-48 HOURS. FINAL TO FOLLOW. Discharge Plan Discharge Disposition: Home, Self-Care Discharge Medications: Continued aspirin 81 mg tablet,delayed release (DR/EC) 81 mg PO BEDTIME atorvastatin 20 mg tablet 20 mg PO BEDTIME cevimeline 30 mg capsule 30 mg PO TID citalopram 40 mg tablet 40 mg PO DAILY fluticasone propionate 50 mcg/actuation spray,suspension 2 spray INTRANASAL BID rabeprazole 20 mg tablet,delayed release (DR/EC) 20 mg PO BID tamsulosin 0.4 mg capsule 0.4 mg PO DAILY tramadol 50 mg tablet 50 mg PO Q6H PRN (Reason: pain) Discontinued hydrochlorothiazide 12.5 mg tablet 6.25 mg PO DAILY Activity: increase activity as tolerated Diet: advance to your usual diet Print Language: Bulgarian Patient Instructions: Low Fat Diet (ED), Low Fat Diet (DC) Forms: Portal Instructions Follow Up Appointments: February 11 @ [address] Dr. Dejesus [phone]
[2024-02-07 08:00] VITALS: BP 123/72; PULSE 71; TEMP 36.5; O2SAT 94
--- NOTE | 2024-02-08 15:19 | CM.DCFOLLOWU ---
Person spoke with: Tiarra How are you feeling? Much better How is your pain? No pain Did you understand your discharge instructions? Yes Do you have any questions about your discharge instructions? No Were you given any prescriptions at discharge? No Were you able to get your prescriptions filled? N/a Do you understand how to take your medications as ordered? Yes Do you have any questions about your follow up appointment and do you plan to keep your follow up appointment? I plan on going to my f/u appt it's scheduled Is there anything else that you would like to discuss? No Questions/Comments/Concerns/Other:
== END 2024-02-07 10:57 | disposition home or self-care (01) | DRG 439 ==
PROVIDERS: Admitting Provider Family Medicine; PCP Family Medicine; Visit Provider Family Medicine
DX: K85.90 Acute pancreatitis without necrosis or infection, unspecified (principal); E44.0 Moderate protein-calorie malnutrition; K21.9 Gastro-esophageal reflux disease without esophagitis; E86.0 Dehydration; I10 Essential (primary) hypertension; E78.00 Pure hypercholesterolemia, unspecified; F32.A Depression, unspecified; Z68.30 Body mass index [BMI] 30.0-30.9, adult; Z98.84 Bariatric surgery status; Z95.5 Presence of coronary angioplasty implant and graft; Z95.1 Presence of aortocoronary bypass graft; Z90.49 Acquired absence of other specified parts of digestive tract; Z79.82 Long term (current) use of aspirin; Z79.899 Other long term (current) drug therapy; Z87.19 Personal history of other diseases of the digestive system; Z82.49 Family history of ischemic heart disease and other diseases of the circulatory system; Z91.040 Latex allergy status; Z88.0 Allergy status to penicillin; Z88.2 Allergy status to sulfonamides; Z91.048 Other nonmedicinal substance allergy status
CPT/HCPCS: 36415; 74177; 74181; 80053; 80076; 81001; 82140; 82150; 83605; 83690; 83735; 85025; 87040; 94761; 96361; 96365; 96366; 96367; 96368; 96375; 96376; Q9966; Q9967

== ENCOUNTER 2024-02-13 07:32 | Outpatient (RCR) | payer BC, SELFPAY ==
[2024-02-13 07:56] VITALS: BP 149/85; PULSE 72; TEMP 36.6; O2SAT 97
[2024-02-13] MEDS: 0.9 % SODIUM CHLORIDE 1,000 ML 500 ML IV (08:12)
--- NOTE | 2024-02-13 08:18 | PC.NURSE ---
0756: Pt. to [facility] amb. for IV hydration. Seated in recliner. VSS. IV initiated to right arm without difficulty, pt. tolerated without c/o. Pt. given water and warm blanket. Denies needs or c/o. 0812: IV 0.9% NS initiated at this time.
--- NOTE | 2024-02-13 09:15 | PC.NURSE ---
0910: IV infusion complete. IV d/c'd pressure to site. D/c'd amb. to home.
== END 2024-02-29 23:59 | disposition home or self-care (01) ==
LOC: INF 07:32
PROVIDERS: PCP Family Medicine; Visit Provider Family Medicine
DX: E86.0 Dehydration (principal)
CPT/HCPCS: 96360

== ENCOUNTER 2024-04-28 22:09 | Emergency (ER) | payer BC, SELFPAY ==
--- OUTSIDE RECORDS SUMMARY | 2024-04-28 22:34 | XMS_ITS | CCD ---
Author Organization [facility] [place] Care Team Providers Care Director Education Name Role Phone UNKNOWN, PROVIDER Unavailable Unavailable ZIGGY DEJESUS Unavailable Unavailable UNKNOWN, PROVIDER Unavailable Unavailable ZIGGY DEJESUS Unavailable Unavailable Ziggy Dejesus Primary Care Provider Ziggy Dejesus Unavailable Unavailable Unavailable Ziggy Dejesus MD Primary Care Provider [phone] Unavailable Unavailable Ziggy Dejesus Primary Care Physician [phone] DR CELSO GARIBAY Admitting Unavailclaire GARIBAY, DR CELSO Orozco Attending Unavailabl e SEB, DR RAMIREZ Primary Care Unavailable KELLY, DR CELSO Orozco Consulting Unavailclaire e SEB, DR RAMIREZ Primary Care Unavailable SEB, DR RAMIREZ Admitting Unavailable SEB, DR RAMIREZ Attending Unavailable SEB, DR RAMIREZ Consulting Unavailable ZIEBER, DR RONAN Guzman Consulting Unavailable TESSIECHGENTRY MCMANUS Consulting Unavailable KOO, INGA Consulting Unavailable MISC, DR MORALES Admitting Unavailable MISC, DR MORALES Attending Unavailable SEB, DR RAMIREZ Primary Care Unavailable DR ZIGGY DEJESUS Consulting Unavailable SEB, DR RAMIREZ Admitting Unavailable SEB, DR RAMIREZ Attending Unavailable DR ZIGGY DEJESUS Primary Care Unavailable DR ZIGGY DEJESUS Consulting Unavailable DR ZIGGY DEJESUS Admitting Unavailable SEB, DR RAMIREZ Attending Unavailable SEB, DR RAMIREZ Primary Care Unavailable DR ZIGGY DEJESUS Consulting Unavailable MD Ziggy Dejesus Primary Care Provider [phone] MD Evert Bruno Attending Provider [phone] 1 Evert Bruno Unavailable MD Ziggy Dejesus Primary Care Provider [phone] Asaad, MD Imad Attending Provider Asaad, Imad Attending Unavailable Asaad, Imad Admitting Unavailable Hoy, Ziggy M Primary Care Unavailable Asaad, Imad Attending Unavailable Asaad, Imad Admitting Unavailable Hoy, Ziggy M Primary Care Unavailable Asaad, Imad Attending Unavailable Asaad, Imad Admitting Unavailable Hoy, Ziggy M Primary Care Unavailable Asaad, Imad Attending Unavailable Hoy, Ziggy M Primary Care Unavailable Asaad, Imad Admitting Unavailable Ziggy Dejesus MD Primary Care Provider [phone] GABY CHAHAL Admitting Unavail able GABY CHAHAL Attending Unavail able HOY, ZIGGY M Primary Care Unavailable HOY, ZIGGY M Primary Care Unavailable Ziggy Dejesus MD Primary Care Provider [phone] CELSO GARIBAY Attending Unavailable ZIGGY DEJESUS MURIEL Primary Care Unavailable ALINA JAVIER Attending Unavailable STEPHANIE BERGER Attending Unavailable HOY, ZIGGY M Referring Unavailable HOY, ZIGGY M Primary Care Unavailable ALASTAL, YASEEN Attending Unavailable HOY, ZIGGY M Referring Unavailable HOY, ZIGGY M Primary Care Unavailable ALASTAL, YASEEN S Admitting Unavailable ALASTAL, YASEEN S Attending Unavailable HOY, ZIGGY M Primary Care Unavailable MAGO MONAE Attending Unavailable HOY, ZIGGY M Primary Care Unavailable ALASTAL, YASEEN S Attending Unavailable ALASTAL, YASEEN S Referring Unavailable HOY, ZIGGY M Primary Care Unavailable BARRY MARTINO Attending Unavailab BARRY Rosa Attending Unavailab le Allergies Allergy Classification Reported Allergen(s) Allergy Type Date of Onset Reaction(s) Facility (20 sources) Baclofen; 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: [Baclofen TABS] Drug Allergy 017 Other (See Comments), Shortness of breath [place], [place] (17 sources) Latex; 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: [LATEX] Propensity to adverse reactions to drug 006 Anaphylaxis, Shortness Of Breath, Anaphylaxis (disorder) [place], [place] (13 sources) Penicillins; 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: [penicillins] Propensity to adverse reactions to drug 006 Hives, Anaphylaxis (disorder) [place] (3 sources) rosuvastatin Drug Allergy 019 [place] (20 sources) Sulfamethoxazole / Trimethoprim; 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: [Bactrim TABS] Drug Allergy 019 [place], [place] (11 sources) natural latex rubber Allergy to substance (finding) Shortness of breath [facility] [employer] DO Work Phone: (11 sources) Penicillins; 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: [Penicillins] Allergy to drug (finding) [place] [address] DO Work Phone: (15 sources) rosuvastatin; 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: [Crestor TABS] Drug Allergy 023 Elevated liver enzymes level (finding), Other [facility] (15 sources) Sulfonamides (Antibiotic); 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: [Sulfa Drugs] Allergy to drug (finding) [facility] (11 sources) levoFLOXacin; 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: [levofloxacin] Drug Allergy 017 Other (See Comments), Candidiasis (disorder) [facility] Work Phone: (4 sources) Phenazopyridine; 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: [PHENAZOPYRIDINE HCL] Drug Allergy 006 [facility] Work Phone: (3 sources) Simvastatin; 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: [SIMVASTATIN] Drug Allergy 006 [facility] [employer] Phone: (2 sources) Sulfonamides (Antibiotic) Propensity to adverse reactions to drug 022 Other (See Comments) [facility] (7 sources) Tobramycin; 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: [tobramycin] Drug Allergy 023 Eruption of skin (disorder) [facility] (1 source) Baclofen Drug Allergy [facility] (1 source) Latex Drug allergy (disorder) [facility] (5 sources) levoFLOXacin; 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: [Levaquin] Drug Allergy thrush [facility] Repository (1 source) Penicillins Drug allergy (disorder) [facility] Repository (1 source) rosuvastatin Drug Allergy [facility] Repository (1 source) Sulfonamides (Antibiotic) Drug allergy (disorder) [facility] Repository (9 sources) rosuvastatin; 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: [rosuvastatin] Drug Allergy 017 Gastrointestinal Upset [facility] (4 sources) Sulfamethoxazole; 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: [sulfamethoxazole] Drug Allergy [facility] (6 sources) Trimethoprim; 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: [trimethoprim] Drug Allergy [facility] (5 sources) Fenofibrate; 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: [FENOFIBRATE] Drug Allergy 009 (Louis) 08/08/2011 [facility] [employer] (3 sources) Penicillin Drug Allergy (Louis) 08/08/2011 [facility] Other (4 sources) Substance with sulfonamide structure and antibacterial mechanism of action (substance) Drug allergy 023 Shortness of breath [facility] Other (1 source) Baclofen Drug Allergy 023 [facility] Repository (1 source) Latex Drug allergy (disorder) [facility] Repository (1 source) levoFLOXacin Drug Allergy [facility] Rep[facility] (1 source) Penicillins Drug allergy (disorder) [facility] Repository (2 sources) Penicillins Propensity to adverse reactions to drug Hives, Rash [facility] [employer] (1 source) Tobramycin Drug Allergy 023 Rash [facility] [employer] (4 sources) Sulfonamides (Antibiotic); 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: [SULFA (SULFONAMIDE ANTIBIOTICS)] Propensity to adverse reactions to drug (disorder) [facility] Repository (3 sources) Fenofibrate; 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: [FENOFIBRATE MICRONIZED] Drug Allergy 009 [facility] Repository (1 source) fluvastatin; 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: [FLUVASTATIN] Drug Allergy [facility] Repository (1 source) natural latex rubber; 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: [LATEX, NATURAL RUBBER] Propensity to adverse reactions to drug (disorder) [facility] Repository (1 source) Phenazopyridine; 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: [PHENAZOPYRIDINE] Drug Allergy 006 [facility] Repository Medications Current Medications Medication Drug Class(es) Dates Sig (Normalized) Sig (Original) atorvastatin 20 mg oral tablet (20 sources) HMG-CoA Reductase Inhibitor Start: 10-27-2019 take 20 mg by mouth once daily atorvastatin 20 mg, Oral, Daily, Refills(s) 0 Start Date: 10/27/19 Status: Ordered take 1 tablet by mouth at bedtim e Lipitor 40 MG 1 tablet Orally at hs for 30 day(s) Active Bariatric Multivitamins with 45 mg Iron (3 sources) Start: 06-02-2022 Bariatric Mult ivitamins with 45 mg Iron Oral, Daily, Refill(s) 0 Start Date: 06/02/22 Status: Ordered Calcium Carbonate (6 sources) take 1 tablet by mouth once daily calcium carbonate (CALCIUM 500 ORAL) Take 1 tablet by mouth once daily. 0 Active take 1 tablet by gavin three times daily at mealtime calcium carbonate [...] soln infusion cevimeline 30 mg oral capsule (20 sources) Cholinergic Receptor Agonist Start: 11-03-2020 take [...] Start: 04-17-2018 take 1 capsule by mo ut four times daily cevimeline (Evoxac) 30 mg capsule Take by mouth 4 times a day. 0 11/03/2020 Active take 25 mg by mouth three times daily CEVIMELINE HCL PO Take 25 mg by mouth 3 times daily 0 Active citalopram 40 mg oral tablet (6 sources) Serotonin Reuptake Inhibitor Start: 04-10-2024 take 1 tablet by mouth once daily citalopram 40 mg Tab take 1 tablet by mouth once daily Start Date: 04/10/24 Status: Ordered Start: 11-01-2022 take 10 mg by mouth once daily Citalopram Active 10 MG PO Daily November 01, 2022 1:00am take 1 tablet by gavin th once daily citalopram (CeleXA) 20 mg tablet Take 1 tablet (20 mg) by mouth once daily. 0 Active take 2 tablets by mo vah once daily citalopram (CELEXA) 10 MG tablet Take 2 [...] mouth two times weekly Vitamin D (Ergocalciferol) 23105 UNIT 1 capsule Orally TWICE a Week for 90 day(s) May, Active estradiol 0.1 mg/ml vaginal cream (1 source) Estrogen Start: 04-10-20 Estrace 0.1 mg/g Cream See Instructions, 42.5 gm, Refill(s) 6, apply a pea-sized amount vaginally and around the urethra nightly x 3 weeks, then 3x per week thereafter, [id number], 160, cm, 04/10/24 15:13:00 EDT, Height/Length Dosing, 74, kg, 04/10/24 15:13:00 EDT, Weight Dosing Start Date: 04/10/24 Status: Ordered fluticasone propionate 0.05 mg/actuat metered dose nasal [...] Start: 04-30-2020 fluticasone 0. 05 mg/inh Nasal [place] Refill(s) 0 Start Date: 04/30/20 Status: Ordered fluticasone 0.05 mg/inh Nasal [place] (2 sources) Start: 04-30-2020 fluticasone 0.05 mg/inh Nasal [place] Refill(s) 0 Start Date: 04/30/20 Status: Ordered furosemide 40 mg oral tablet (3 sources) Loop Diuretic take 1 tablet by mouth every twenty-fou r hours Lasix 40 MG 1 tablet Orally Once a day for 30 day(s) Active hydroCHLOROthiazide 12.5 mg oral tablet (17 sources) Thiazide Diuretic Start: 07-19-2023 End: 07-13-2024 take 6.25 mg by mouth once daily hydrochlorothiazide 12.5 mg Tab 6.25 mg = 0.5 tab(s), Oral, Daily, X 90 day(s), # 45 tab(s), Refills(s) 3, Pharmacy: [facility], 160, cm, 06/02/22 8:29:00 EDT, Height/Length Dosing, 61.2, kg, 06/02/22 8:29:00 EDT, Weight Dosing Start Date: 07/19/23 Stop Date: 07/13/24 Status: Ordered Start: 11-01-2022 take 6.26 mg by mout h once daily Hydrochlorothiazide Active 6.26 MG PO [...] Daily, # 90 tab(s), Refills(s) 3, Pharmacy: [facility], 160, cm, 05/27/21 8:19:00 EDT, [...] 1449, Nausea Secondary antiemetic therapy. PACU only 24 hr mirabegron 25 mg extended release oral tablet (1 source) beta3-Adrenergic Agonist Start: 04-10-2024 End: 04-05-2025 take 1 tablet by mouth once daily mirabegron 25 mg oral tablet, extended release 25 mg = 1 tab(s), Oral, Daily, do not fill both mirabegron AND vibegron. only fill whichever has lower co-pay., X 30 day(s), # 30 tab(s), Refills(s) 11, Pharmacy: [id number], 160, cm, 04/10/24 15:13:00 EDT, Height/Length Dosing, 74, kg, 04/10/24 15:13:00 EDT, Weight Dosing Start Date: 04/10/24 Stop Date: 04/05/25 Status: Ordered mometasone furoate 1 mg/ml topical cream (12 [...] day for 30 day(s) Active Multi Vitamin+ (3 sources) Start: 0 Multi Vitamin+ Refill(s) 0 Start [...] mouth 2 times a day. 0 Active Omnfkorelrab-Jao-Bgz n-Fa-Vit K (Bariatric Multivitamins) 45 mg iron- 800 mcg-120 mcg Capsule (3 sources) Start: take 1 capsule by mouth twice daily Multivitamin-Min- Iron-Fa-Vit K (Bariatric Multivitamins) 45 mg iron- 800 mcg-120 mcg Capsule Active 1 CAP PO Twice daily November 01, 2022 1:00am Start: 11-01-2022 take 1 capsule by mo [facility] twice daily Tczniyjxksrm-Vow-Gers-Fa-Vit K (Bariatri c Multivitamins) 45 mg iron- [...] tablet Indications: Atherosclerosis of coronary artery of [place] heart without angina pectoris, unspecified vessel or lesion type Place 1 tablet (0.4 mg) under the tongue every 5 minutes if needed for chest pain. 90 tablet 3 08/14/2023 Active Nitrostat 0.4 MG 1 tablet under the tongue Sublingual as directed for 30 day(s) Active nystatin 100 unt/mg topical powder (12 sources) Polyene Antifungal Start: 05-05-2020 nystatin (Nyamyc) 100,000 unit/gram powder apply topically to affected [...] IntraVENous, ONCE PRN, 1 dose, Starting on 06/18/23 at 1449, Until Sun06/19/23 at 1449, Nausea Initial antiemetic therapy. PACU only Start: 04-17-2018 End: 04-22-2018 take 1 tablet by mouth every eight hours Ondansetron (Zofran Odt) 8 mg tablet,disintegrating Discontinued 8 MG PO Q8H 10 5 April 17, 2018 12:00am April 22, 2018 12:01am polyethylene glycol 3350 805144 mg / potassium chloride 2970 mg / sodium bicarbonate 6740 mg / sodium chloride 5860 mg / sodium sulfate 47759 mg powder for oral solution (3 sources) Osmotic Laxative Start: 10-24-2022 take 236 g by mouth once Golytely 236 GM as directed Orally the day prior to colonoscopy for 1 days Oct, Active prasugrel 10 mg oral tablet (3 sources) P2Y12 Platelet Inhibitor take 10 mg by mouth once daily effient 10 mg once a day po Active PreserVision AREDS (1 source) Start: 04-10-2024 PreserVision AREDS Refill(s) 0 Start Date: 04/10/24 Status: Ordered promethazine hydrochloride 25 mg oral tablet (6 [...] needed 5-40 mL, IntraVENous, PRN, Starting on 06/18/23 at 1449, Until Discontinued, Line Care, After [...] mL tamsulosin hydrochloride 0.4 mg oral capsule (20 sources) alpha-Adrenergic Boom Start: 10-26-2020 End: 03-09-2023 take 1 capsule by mouth twice daily Flomax 0.4 mg Cap 0.4 mg = 1 cap(s), Oral, BID, X 90 day(s), # 180 cap(s), Refills(s) 3, [facility], 160, cm, 05/27/21 8:19:00 EDT, Height/Length Dosing, 61, kg, 05/27/21 8:19:00 EDT, Weight Dosing Start Date: 03/14/22 Stop Date: 03/09/23 Status: Ordered Start: 04-17-2018 take 1 capsule by mo [facility] once daily tamsulosin 0.4 mg Cap 0.4 mg = 1 cap(s), Oral, Daily, # 90 cap(s), Refills(s) 3, [facility], 160, cm, 06/02/22 8:29:00 EDT, Height/Length Dosing, 61.2, kg, 06/02/22 8:29:00 EDT, Weight Dosing Start Date: 07/19/23 Status: Ordered traMADol hydrochloride 50 mg oral tablet (6 sources) Opioid Agonist Start: 11-01-2022 take 50 mg by mouth three times daily Tramadol Active 50 MG PO Three times daily November 01, 2022 1:00am take 1 tablet by gavin th every twenty-four hours traMADol HCl 50 MG 1 tablet as needed Orally Once a day Active ubidecarenone 200 mg oral capsule (3 sources) take 1 capsule by mouth every twenty-four hours Coenzyme Q-10 200 MG 1 capsule with a meal Orally Once a day for 30 day(s) Active vibegron 75 MG Oral Tablet [Gemtesa] (1 source) Start: 04-10-2024 End: 04-05-2025 take 1 tablet by mouth once daily Gemtesa 75 mg oral tablet 75 mg = 1 tab(s), Oral, Daily, X 30 day(s), # 30 tab(s), Refills(s) 11, Pharmacy: [facility] #[id number], 160, cm, 04/10/24 15:13:00 EDT, Height/Length Dosing, 74, kg, 04/10/24 15:13:00 EDT, Weight Dosing Start Date: 04/10/24 Stop Date: 04/05/25 Status: Ordered vit C/E/Zn/coppr/lutein/montse yuridia (PRESERVISION AREDS-2 ORAL) (1 source) vit C/E/Zn/coppr/lutein /zeaxan (PRESERVISION AREDS-2 ORAL) Take by mouth twice [...] ascorbic acid 226 mg / beta carotene 24054 unt / cuprous oxide 0.8 mg / [...] Status: Ordered take 1 tablet by gavin th every twenty-four hours Aspirin 81 mg 1 [...] / neomycin 3.5 mg/ml / polymyxin b 54693 unt/ml ophthalmic suspension (3 sources) Aminoglycoside Antibacterial, Polymyxin-class Antibacterial, Corticosteroid Start: 06-13-2021 take 2 drop(s) into the eye(s) four times daily Neomycin-Polymyxin- HC [id number] Ophthalmic Suspension instill 2 drops INTO AFFECTED [...] Date Documented Da te Episodic/Chronic Abdominal pain (18 sources) Abdominal pain; 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: [Unspecified abdominal pain] Onset: 2 Episodic Biliary tract disease (4 sources) Choledochal cyst; 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 Calculus of urinary tract (9 sources) Kidney stone; 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: [Calculus of kidney] Onset: 2 Episodic Cardiac and circulatory congenital anomalies (12 sources) Ventricular septal defect; 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: [Ventricular septal defect] Onset: 3 08-09-2023 Chronic Cardiac dysrhythmias (12 sources) Paroxysmal supraventricular tachycardia; 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: [Paroxysmal supraventricular tachycardia] Onset: 3 08-09-2023 Chronic Coronary atherosclerosis and other heart disease (20 sources) Coronary atherosclerosis; 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: [Coronary atherosclerosis of [place] coronary artery] Onset: 2 Chronic Coronary atherosclerosis [...] 08-14-2023 Chronic Genitourinary symptoms and ill-defined conditions (4 sources) Mixed incontinence; 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: [Incontinence] Onset: 2 Chronic Genitourinary symptoms and ill-defined conditions (1 source) Genitourinary tract problem; 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: [Other symptoms and signs involving the genitourinary system] Onset: 4 Episodic Menopausal disorders (2 sources) Postmenopausal bleeding; 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: [Postmenopausal bleeding] Onset: 3 06-18-2023 Chronic Other aftercare (1 source) exterminator (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; 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: [LONGTERM CURRENT USE OF ASPIRIN] Onset: 3 Episodic Other aftercare (1 source) Other custodial (current) drug therapy; 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: [OTH LONGTERM CURRENT DRUG THERAPY] Onset: 3 Episodic Other diseases of bladder and urethra (1 source) Detrusor overactivity; 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: [Overactive bladder] Onset: 4 Chronic Other diseases of bladder and urethra (1 source) Overactive bladder 04-10-2024 Chronic Other diseases of bladder and urethra (1 source) Pain in urethra 04-10-2024 Episodic Other gastrointestinal disorders (1 source) Intestinal malabsorption, unspecified; 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: [INTESTINAL MALABSORPTION UNS] Onset: 2 Chronic Other gastrointestinal disorders (2 sources) Other intestinal malabsorption; 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: [Other intestinal malabsorption] Onset: 4 Chronic Other gastrointestinal disorders (3 sources) Bariatric surgery status; 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: [BARIATRIC SURGERY STATUS] Onset: 3 Episodic Other gastrointestinal disorders (3 sources) Constipation; 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: [Constipation, unspecified] Episodic Other gastrointestinal disorders (2 sources) Constipation, unspecified; 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: [Constipation, unspecified] Onset: 3 Episodic Other liver diseases (2 sources) Liver disease, unspecified; 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: [Liver disease, unspecified] Onset: 4 Chronic Other liver diseases (3 sources) Elevated liver [...] less than 30; 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: [Overweight] Episodic Other nutritional; endocrine; and metabolic disorders (2 sources) Abnormal weight loss; 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: [Abnormal weight loss] Onset: 4 Episodic Other screening for suspected conditions (not mental disorders or infectious disease) (9 sources) Other specified abnormal findings of blood chemistry; 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: [Patient encounter status] Onset: 3 Episodic Other skin disorders (1 source) Epidermoid cyst; 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: [Epidermal cyst] 06-18-2023 Episodic Other skin disorders (1 source) Epidermal cyst; 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: [Epidermal cyst] Onset: 3 Episodic Other upper respiratory disease (1 source) Allergic rhinitis, unspecified; 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: [Allergic rhinitis, unspecified] Onset: 4 Chronic Pancreatic disorders (not diabetes) (7 sources) Idiopathic acute pancreatitis without necrosis or infection; 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: [Acute pancreatitis without necrosis or infection, unspecified] Onset: 3 Episodic Unclassified (1 source) Presence of aortocoronary bypass graft / Z95.1(ICD-9) Onset: 7 Unclassified (1 source) Athscl heart disease of [place] coronary artery w/o ang pctrs / I25.10(ICD-9) [...] female exam with routine gynecological exam] Unclassified (3 sources) Drug therapy finding 04-30-2020 Unclassified (3 sources) Finding of sensation of bladder 10-27-2019 Unclassified [...] Test Name Value Interpretation Reference Range Facility Reminderson 04-10-2024 Reminders Reminders From: Bruna Gabriel To: EU - Administrative; Sent: 04/10/2024 15:56:05 EDT Show up: 06/05/2024 15:55:00 EDT Subject: 8 to 10 wk f/u Due Date/Time: 06/19/2024 15:54:00 EDT Reminder/Recall patient seen on 04/10/2024. patient needs an 8 to 10 wk f/u. Appointment due by 06/19/2024 in [place] with [facility] Urology Office/Clinic Noteon 04-10-2024 Urology Office/Clinic Note Urology Office/Clinic Note Chief Complaint 1+yr KUB HPI Staff PRW pt 1yr KUB & Metabolic Work Up DX: Kidney Stone, Mixed Incontinence & Lt Flank Pain *HCTZ 12.5 1/2 tab qd & Tamsulosin 0.4mg qd (can increase to bid PRN) PCP stopped HCTZ due to dehydration Metabolic Work Up completed 01/19/24 NEG KUB 01/19/24 Denies flank pain. Burning sensation at urethra 10min after voiding. Increased urgency. Occasional loss of bladder control. Wears pads, goes through 2-3/day. Interested in med/procedure to help with sx. Review of Systems PHQ Score Initial Depression Screen Score: 0 SCORE no fever, chills, malaise, myalgia. no rash/lesions. no chest pain, palpitations, or SOB. no abdominal pain, nausea, vomiting. no unilateral calf swelling, redness, pain Physical Exam Vitals & Measurements HR: 75(Peripheral) RR: 16 BP: 131/80 HT: 63 in HT: 160 cm WT: 74 kg WT: 162.8 lb BMI: 28.91 General: nontoxic, NAD Mouth: moist mucosa Lungs: normal respiratory effort Cardio: regular rate, good distal perfusion Abdomen: nondistended, no suprapubic distention or tenderness, no CVA tenderness Neurologic: Grossly normal Skin: No rashes or suspicious lesions Assessment/Plan 1. Kidney stone (N20.0: Calculus of kidney) Pt was previously on HCTZ for stone prevention. Takes Flomax once daily. Increases this to BID when feels stone passing. Pt stopped HCTZ due to dehydration. Metabolic eval shows nl urine Ca/24hr Ca levels (8.9, 269) and urine Na/24hr Na levels (39, 118). Ok to remain off HCTZ. Her volumes is fantastic, 3030ml. Oxalates are a little high, 45 (nl 4-31). Discussed high oxalate foods and provided printed info for her to review at home. -remain off HCTZ -continue Flomax -decrease Oxalates in diet -KUB in 1 yr (not ordered today) Ordered: E&M of Est. Patient High 40-54 Min 57573 Urnls Dip Stick Auto w/o Microscopy POC 82684 2. OAB (overactive bladder) (N32.81: Overactive bladder) BBSQ 23/3 poor wears 2-3 pads/day UUI >> VIDAL Discussed tx options for bothersome urinary sx including oral medications, Botox, SNM. Brief discussion today regarding Botox/SNM but did not go into elaborate detail, would address full risks/benefits/detail s of procedure prior to scheduling. Medication management includes anticholinergics and beta-3 agonists. Beta-3's (Myrbetriq/Gemtesa) are often preferable due to lower side effect profile, but most insurances won't cover without trying anticholinergics first. Not a candidate for Anticholinergics due to the following reasons: R eye has blocked tear duct. Uses Rx Refresh drops per Ophthalmology. 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 On Cevimeline for this. Has chronic constipation. On Metamucil for this. -Will send rx for Beta-3s, Mirabegron and Vibegron. Pt to fill whichever is covered/has lower co-pay. Risks/benefits/side effects discussed. Ordered: E&M of Est. Patient High 40-54 Min 17160 3. Urethral pain (R39.89: Other symptoms and signs involving the genitourinary system) UA shows trace leuks only. Will not send for additional testing. Pt doesn't have burning during urination. Just gets intermittent pain in urethra at random times. This has not responded to several courses of abx per PCP. Denies cloudy urine, odorous urine. Denies gross hematuria. Pt went through menopause age 50. Does have vaginal dryness. Discussed sx could be due to atrophy. -We will start pt on topical Estrogen cream. Reasoning, side effects, risks/benefits discussed. Rx sent to pharmacy. -If no improvement at f/u, consider cysto. Ordered: E&M of Est. Patient High 40-54 Min [id number] Orders: estradiol topical, See Instructions, 42.5 gm, Refill(s) 6, apply a pea-sized amount vaginally and around the urethra nightly x 3 weeks, then 3x per week thereafter, [id number], 160, cm, 04/10/24 15:13:00 EDT, Height/Length Dosing, 74, kg, 04/10/24 15:13... mirabegron, 25 mg = 1 tab(s), Oral, Daily, do not fill both mirabegron AND vibegron. only fill whichever has lower co-pay., X 30 day(s), # 30 tab(s), Refills(s) 11, Pharmacy: [facility] #[id number], 160, cm, 04/10/24 15:13:00 EDT, Height/Length Dosing, 74, k... vibegron, 75 mg = 1 tab(s), Oral, Daily, X 30 day(s), # 30 tab(s), Refills(s) 11, Pharmacy: [facility] #[id number], 160, cm, 04/10/24 15:13:00 EDT, Height/Length Dosing, 74, kg, 04/10/24 15:13:00 EDT, Weight Dosing Total time spent reviewing previous notes/results/externa l documents, preparing the chart, conducting the encounter with the patient and family, ordering tests/medications, and documenting the encounter was 40 minutes. Follow-up With When Contact Information JENNIFER MARTINO PA-C, CARLOS Within 3 months [address] [place] [address] Additional Instructions: Patient Education Kidney Stones, Rpdq-[id number]-Arbd Problem List/Past Medical History Ongoing Anticoagulated Feeling of incomplete b (more content not included)... Normal [facility] Comment on above: Result Comment: Elec tronically Signed By: SALENA REDDY, JENNIFER Burks.pepe\Date and Time Signed: 04/10/24 16:09 EDT Glucose Glucometer (BldC) [M ass/Vol]on 03-06-2024 Glucose [Mass/Vol] 79 mg/dL Normal 65-99 [facility] 36on 02-28-2024 36 Scheduled EGD/EUS 03/06/24 @1130, PTH, Dr. Cesar, PAT ph: 02/29/24 @1000, #[id number], Clinic appt 02/27/24 w/ Sherita. Normal [facility] [id number] 2023 ALPHA-1 ANTITRYPSIN 145 mg/dL Normal 90-200 [facility] Comment on above: Result Comment: To c onvert to umol/L, multiply mg/dL by 0.185 Performed By: [facility] [address] [place] [address] Plastic Boat Buffer: Sarwat Gorman MD, PhD CLIA Number: [id number] Performed By: #### L [id number] #### [facility] ([facility]) [address] [place] [address] ANAon 02-27-2024 CHAY TITER <1:40 Normal <=1:40 [facility] Comment on above: Result Comment: Test performed using BRIJESH IFA CHAY Hep-2 Test, a pre-standardized assay designed for the qualitative and semi-quantitative detection of antinuclear antibodies. Performed By: #### L [id number] #### [facility] ([facility]) [address] [place] [address] ANTI-SMOOTH MUSCLE ANTIBODY TITERon 02-27-2024 SMOOTH MUSCLE AB, IGG TITER <1:20 Normal <1:20 [facility] Comment on above: Result Comment: INTE RPRETIVE INFORMATION: Smooth Muscle Ab, IgG Titer Less than 1:20 ........ Negative - No antibody detected. 1:20 - 1:80 .......... Weak Positive - Suggest repeat in two to three weeks with fresh specimen. 1:160 or greater ...... Positive - Suggestive of autoimmune hepatitis or chronic active hepatitis. Performed By: [facility] [address] [place] [address] [employer]: Sarwat Gorman MD, PhD CLIA Number: [id number] Performed By: #### L [id number] #### [facility] ([facility]) [address] [place] [address] CBC WITH AUTO DIFFERENTIALon 02-27-2024 Basophils (Bld) [#/Vol] 0.01 10*3/uL Normal 0.00-0.20 [facility] Comment on above: Performed By: #### L [id number] #### [facility] ([facility]) [address] [place] [address] Basophils/100 WBC (Bld) 0.2 % Normal 0.0-1.0 [facility] Comment on above: Performed By: #### L [id number] #### [facility] ([facility]) [address] [place] [address] Eosinophils (Bld) [#/Vol] 0.17 10*3/uL Normal 0.00-0.50 [facility] Comment on above: Performed By: #### L [id number] #### [facility] ([facility]) [address] [place] [address] Eosinophils/100 WBC (Bld) 3.2 % Normal 0.0-6.0 [facility] Comment on above: Performed By: #### L [id number] #### [facility] ([facility]) [address] [place] [address] Erythrocyte distribution width (RBC) [Ratio] 12.6 % Normal 11.5-15.0 [facility] Comment on above: Performed By: #### L [id number] #### [facility] ([facility]) [address] [place] [address] ERYTHROCYTE MEAN CORPUSCULAR HEMOGLOBIN CONCENTRATION (G/DL) BY AUTOMATED 33.6 g/dL Normal 32.0-35.0 [facility] Comment on above: Performed By: #### L [id number] #### [facility] ([facility]) [address] [place] [address] Hematocrit (Bld) [Volume fraction] 44.0 % Normal 36.0-48.0 [facility] Comment on above: Performed By: #### L [id number] #### [facility] ([facility]) [address] [place] [address] Hemoglobin (Bld) [Mass/Vol] 14.8 g/dL Normal 12.0-15.0 [facility] Comment on above: Performed By: #### L [id number] #### [facility] ([facility]) [address] [place] [address] Immature granulocytes (Bld) [#/Vol] 0.01 10*3/uL Normal 0.00-0.20 [facility] Comment on above: Performed By: #### L [id number] #### [facility] ([facility]) [address] [place] [address] Immature granulocytes/100 WBC (Bld) 0.2 % Normal 0.0-1.0 [facility] Comment on above: Performed By: #### L [id number] #### [facility] ([facility]) [address] [place] [address] Lymphocytes (Bld) [#/Vol] 1.19 10*3/uL Low 1.20-4.00 [facility] Comment on above: Performed By: #### L [id number] #### [facility] ([facility]) [address] [place] [address] Lymphocytes/100 WBC (Bld) 22.3 % Normal 20.0-45.0 [facility] Comment on above: Performed By: #### L [id number] #### [facility] ([facility]) [address] [place] [address] MCH (RBC) [Entitic mass] 30.2 pg Normal 27.0-33.0 [facility] Comment on above: Performed By: #### L [id number] #### [facility] ([facility]) [address] [place] [address] MCV (RBC) [Entitic vol] 89.8 fL Normal 82.0-98.0 [facility] Comment on above: Performed By: #### L [id number] #### [facility] ([facility]) [address] [place] [address] Monocytes (Bld) [#/Vol] 0.53 10*3/uL Normal 0.10-1.00 [facility] Comment on above: Performed By: #### L [id number] #### [facility] ([facility]) [address] [place] [address] Monocytes/100 WBC (Bld) 9.9 % Normal 5.0-12.0 [facility] Comment on above: Performed By: #### L [id number] #### [facility] ([facility]) [address] [place] [address] Neutrophils (Bld) [#/Vol] 3.42 10*3/uL Normal 1.60-7.60 [facility] Comment on above: Performed By: #### L [id number] #### [facility] ([facility]) [address] [place] [address] Neutrophils/100 WBC (Bld) 64.2 % Normal 40.0-72.0 [facility] Comment on above: Performed By: #### L [id number] #### [facility] ([facility]) [address] [place] [address] NRBC (PER 100 WBCS) BY AUTOMATED COUNT 0.0 % Normal 0 [facility] Comment on above: Performed By: #### L [id number] #### [facility] ([facility]) [address] [place] [address] PLATELETS (10*3/UL) IN BLOOD AUTOMATED COUNT 198 10*3/uL Normal 150-400 [facility] Comment on above: Performed By: #### L [id number] #### [facility] ([facility]) [address] [place] [address] RBC (Bld) [#/Vol] 4.90 10*6/uL Normal 3.80-5.00 [facility] Comment on above: Performed By: #### L [id number] #### [facility] ([facility]) [address] [place] [address] WBC (Bld) [#/Vol] 5.33 10*3/uL Normal 4.00-10.60 [facility] Comment on above: Performed By: #### L [id number] #### [facility] ([facility]) [address] [place] [address] COMPREHENSIVE METABOLIC PANE [facility] 02-27-2024 Albumin [Mass/Vol] 4.4 g/dL Normal 3.5-5.7 [facility] Comment on above: Performed By: #### L [id number] #### [facility] ([facility]) [address] [place] [address] ALP [Catalytic activity/Vol] 84 U/L Normal 34-104 [facility] Comment on above: Performed By: #### L [id number] #### [facility] ([facility]) [address] [place] [address] ALT [Catalytic activity/Vol] 43 U/L Normal 7-52 [facility] Comment on above: Performed By: #### L [id number] #### [facility] ([facility]) [address] [place] [address] Anion gap [Moles/Vol] 11 mmol/L Normal 7-20 [facility] Comment on above: Performed By: #### L [id number] #### [facility] ([facility]) [address] [place] [address] AST [Catalytic activity/Vol] 33 U/L Normal 13-39 [facility] Comment on above: Performed By: #### L [id number] #### [facility] ([facility]) [address] [place] [address] Bilirubin [Mass/Vol] 0.4 mg/dL Normal 0.3-1.0 [facility] Comment on above: Performed By: #### L [id number] #### [facility] ([facility]) [address] [place] [address] Calcium [Mass/Vol] 9.9 mg/dL Normal 8.6-10.3 [facility] Comment on above: Performed By: #### L [id number] #### [facility] ([facility]) [address] [place] [address] Chloride [Moles/Vol] 102 mmol/L Normal 98-107 [facility] Comment on above: Performed By: #### L [id number] #### [facility] ([facility]) [address] [place] [address] CO2 [Moles/Vol] 29 mmol/L Normal 21-31 [facility] Comment on above: Performed By: #### L [id number] #### [facility] ([facility]) [address] [place] [address] Creatinine [Mass/Vol] 0.62 mg/dL Normal 0.60-1.20 [facility] Comment on above: Performed By: #### L [id number] #### [facility] ([facility]) [address] [place] [address] GLOMERULAR FILTRATION RATE ML/MIN/1.73 SQ M.PREDICTED 102.5 mL/min/1.73m*2 Normal >60.0 [facility] Comment on above: Result Comment: [facility]???s estimated glomerular filtration rate (eGFR) will no longer include consideration of race in its calculation. The National Kidney Foundation???s eGFR Task Force developed new recommendations for the estimation of the glomerular filtration rate in the [place] They recommend immediate implementation of the new equation refit without the race variable in all laboratories because the calculation does not include race. In addition to not including race in the calculation and reporting, it included diversity in its development, and has acceptable performance characteristics and potential consequences that do not disproportionately affect any one group of individuals. Performed By: #### L [id number] #### [facility] ([facility]) [address] [place] [address] Glucose [Mass/Vol] 90 mg/dL Normal 70-100 [facility] Comment on above: Performed By: #### L [id number] #### [facility] ([facility]) [address] [place] [address] Potassium [Moles/Vol] 4.2 mmol/L Normal 3.5-5.1 [facility] Comment on above: Performed By: #### L [id number] #### [facility] ([facility]) [address] [place] [address] Protein [Mass/Vol] 6.9 g/dL Normal 6.0-8.3 [facility] Comment on above: Performed By: #### L [id number] #### [facility] ([facility]) [address] [place] [address] Sodium [Moles/Vol] 138 mmol/L Normal 136-145 [facility] Comment on above: Performed By: #### L [id number] #### [facility] ([facility]) [address] [place] [address] Urea nitrogen [Mass/Vol] 27 mg/dL High 7-25 [facility] Comment on above: Performed By: #### L [id number] #### [facility] ([facility]) [address] [place] [address] UREA NITROGEN/CREATININE (MASS RATIO) IN SER/PLAS 43.5 Normal [facility] Comment on above: Performed By: #### L [id number] #### [facility] ([facility]) [address] [place] [address] COPPER, SERUMon 02-27-2024 COPPER 125.0 ug/dL Normal 80.0-155.0 [facility] Comment on above: Result Comment: INTE RPRETIVE INFORMATION: Copper, Serum or Plasma Elevated results may be due to skin or collection-related contamination, including the use of a noncertified metal-free collection/transport tube. If contamination concerns exist due to elevated levels of serum/plasma copper, confirmation with a second specimen collected in a certified metal-free tube is recommended. Serum copper may be elevated with infection, inflammation, stress, and copper supplementation. In females, elevated copper may also be caused by oral contraceptives and (concentrations may be elevated up to 3 times normal during the third trimester). This test was developed and its performance characteristics determined by [facility]. It has not been cleared or approved by the [place] Food and Drug Administration. This test was performed in a CLIA certified laboratory and is intended for clinical purposes. Performed By: [facility] [address] [place] [address] [employer] Buffer: Sarwat Gorman MD, PhD CLIA Number: [id number] Performed By: #### L [id number] #### [facility] ([facility]) [address] [place] [address] FERRITINon 02-27-2024 FERRITIN (NG/ML) IN SER/PLAS 32.0 ng/mL Normal 11.0-307.0 [facility] Comment on above: Performed By: #### L [id number] #### [facility] ([facility]) [address] [place] [address] FOLATEon 02-27-2024 FOLATE (NG/ML) IN SER/PLAS 39.0 ng/mL Normal 6.6-1000 [facility] Comment on above: Performed By: #### L [id number] #### [facility] ([facility]) [address] [place] [address] HEMOGLOBIN A1Con 02-27-2024 Glucose [Mass/Vol] 100 mg/dL Normal [facility] Comment on above: Performed By: #### L [id number] #### [facility] ([facility]) [address] [place] [address] HbA1c (Bld) [Mass fraction] 5.1 % Normal 4.0-6.0 [facility] Comment on above: Performed By: #### L [id number] #### [facility] ([facility]) [address] [place] [address] HEPATITIS PANEL, ACUTEon HEPATITIS A VIRUS IGM AB PRESENCE IN SER/PLAS Non-Reactive Normal Nonreactive [facility] Comment on above: Performed By: #### L [id number] #### [facility] ([facility]) [address] [place] [address] HEPATITIS B VIRUS CORE AB (PRESENCE) IN SER/PLAS BY IMM Non-Reactive Normal Nonreactive [facility] Comment on above: Performed By: #### L [id number] #### [facility] ([facility]) [address] [place] [address] HEPATITIS B VIRUS SURFACE AG PRESENCE IN SERUM Non-Reactive Normal Nonreactive [facility] Comment on above: Performed By: #### L [id number] #### [facility] ([facility]) [address] [place] [address] HEPATITIS C VIRUS AB PRESENCE IN SERUM Non-Reactive Normal Nonreactive [facility] Comment on above: Performed By: #### L [id number] #### [facility] ([facility]) [address] [place] [address] IGAon 02-27-2024 Magnesium [Mass/Vol] 108 mg/dL Normal 60-413 [facility] Comment on above: Performed By: #### L [id number] #### [facility] ([facility]) [address] [place] [address] IGG 1, 2, 3, AND 4on 024 IgG subclass 1 (S) [Mass/Vol] 293 mg/dL Normal 240-1118 [facility] Comment on above: Result Comment: REFE RENCE INTERVAL: Immunoglobulin G Subclass 1 The total IgG (mg/dL) can be derived from the sum of the subclass IgG1, IgG2, IgG3, and IgG4 values. However, a confirmatory and more precise total IgG is available by the turbidimetric method of quantitation for total IgG. Refer to test Immunoglobulin G, Serum ([id number]). Access complete set of age- and/or gender-specific reference intervals for this test in the [facility] ([place]). Performed By: #### L [id number] #### [facility] ([facility]) [address] [place] [address] IgG subclass 2 (S) [Mass/Vol] 160 mg/dL Normal 124-549 [facility] Comment on above: Result Comment: REFE RENCE INTERVAL: Immunoglobulin G Subclass 2 Access complete set of age- and/or gender-specific reference intervals for this test in the [facility] ([place]). Performed By: #### L [id number] #### [facility] ([facility]) [address] [place] [address] IgG subclass 3 (S) [Mass/Vol] 32 mg/dL Normal 21-134 [facility] Comment on above: Result Comment: REFE RENCE INTERVAL: Immunoglobulin G Subclass 3 Access complete set of age- and/or gender-specific reference intervals for this test in the [facility] ([place]). Performed By: #### L [id number] #### [facility] ([facility]) [address] [place] [address] IgG subclass 4 (S) [Mass/Vol] 21 mg/dL Normal 1-123 [facility] Comment on above: Result Comment: REFE RENCE INTERVAL: Immunoglobulin G Subclass 4 Access complete set of age- and/or gender-specific reference intervals for this test in the [facility] ([place]). Performed By: [facility] [address] [place] [address] [employer]: Sarwat Gorman MD, PhD CLIA Number: [id number] Performed By: #### L [id number] #### [facility] ([facility]) [address] [place] [address] IRON AND TIBCon 02-27-2024 IRON (UG/DL) IN SER/PLAS 56 ug/dL Normal 50-212 [facility] Comment on above: Performed By: #### L [id number] #### [facility] ([facility]) [address] [place] [address] IRON BINDING CAPACITY (UG/DL) IN SER/PLAS 364 ug/dL Normal 250-450 [facility] Comment on above: Performed By: #### L [id number] #### [facility] ([facility]) [address] [place] [address] IRON BINDING CAPACITY.UNSATURATED (UG/DL) IN SER/PLAS 308.0 ug/dL Normal 155.0-355.0 [facility] Comment on above: Performed By: #### L [id number] #### [facility] ([facility]) [address] [place] [address] IRON SATURATION (%) IN SER/PLAS 15 % Low 20-50 [facility] Comment on above: Performed By: #### L [id number] #### [facility] ([facility]) [address] [place] [address] LIPID PANELon 02-27-2024 CHOL/HDL 2.9 mg/dL Normal [facility] Comment on above: Performed By: #### L [id number] #### [facility] ([facility]) [address] [place] [address] Cholesterol [Mass/Vol] 111 mg/dL Low 120-200 [facility] Comment on above: Performed By: #### L [id number] #### [facility] ([facility]) [address] [place] [address] Magnesium [Mass/Vol] 144 mg/dL Normal 40-149 [facility] Comment on above: Result Comment: TRIG LYCERIDE REFERENCE RANGE: 20 YEARS AND OLDER CARDIOVASCULAR RISK LESS THAN 150 mg/dL LOW RISK 150 TO 199 mg/dL BORDERLINE RISK 200 mg/dL AND GREATER HIGH RISK Performed By: #### L [id number] #### [facility] ([facility]) [address] [place] [address] Magnesium [Mass/Vol] 44 mg/dL Normal 0-160 [facility] Comment on above: Performed By: #### L [id number] #### [facility] ([facility]) [address] [place] [address] Magnesium [Mass/Vol] 38 mg/dL Normal 23-92 [facility] Comment on above: Performed By: #### L [id number] #### [facility] ([facility]) [address] [place] [address] NON HDL CHOL. (LDL+VLDL) 73 Normal [facility] Comment on above: Performed By: #### L [id number] #### [facility] ([facility]) [address] [facility] [place] [address] TOTAL VLDL-C 29 mg/dL Normal 0-40 [facility] Comment on above: Performed By: #### L [id number] #### [facility] ([facility]) [address] [place] [address] LIVER FIBROSIS CHRONIC VIRAL HEPATITISon 02-27-2024 [id number] , FIBROMETER 328 mg/dL High 131-293 [facility] Comment on above: Performed By: #### L [id number] #### [facility] ([facility]) [address] [place] [address] ALT [Catalytic activity/Vol] 57 U/L High 5-40 [facility] Comment on above: Performed By: #### L [id number] #### [facility] ([facility]) [address] [place] [address] Amylase [Catalytic activity/Vol] 18 U/L Normal 7-33 [facility] Comment on above: Performed By: #### L [id number] #### [facility] ([facility]) [address] [place] [address] AST [Catalytic activity/Vol] 41 U/L High 9-40 [facility] Comment on above: Performed By: #### L [id number] #### [facility] ([facility]) [address] [place] [address] CIRRHOMETER PATIENT SCORE 0.08 Normal [facility] Comment on above: Performed By: #### L [id number] #### [facility] ([facility]) [address] [place] [address] EER FIBROMETER REPORT See Note Normal [facility] Comment on above: Result Comment: Auth orized individuals can access the [employer] Enhanced Report using the following link: [email or web address] Performed By: #### L [id number] #### [facility] ([facility]) [address] [place] [address] FIBROMETER INTERPRETATION See Report Normal [facility] Comment on above: Result Comment: [17] [13] INTERPRETIVE INFORMATION: Fibrometer Interpretation Calculations for the final report are based on accurate data for age, gender, and platelet count. If any of this information needs to be corrected, please contact [facility] [employer] to request a recalculation. Client Services may be contacted at . The Echosens FibroMeter profile serves as a surrogate marker of liver fibrosis, cirrhosis, and necro-inflammatory activity. A proprietary algorithm calculates and compares results from 7 blood markers along with age and gender to provide a patient score (from 0 to 1) and a correlated fibrosis stage (Metavir F0-F4) and activity grade (Metavir A0-A3). The fibrosis/cirrhosis score is further evaluated by a rules-based system to detect anomalous profile results which may modify the fibrosis/cirrhosis score as needed. Results should be interpreted in conjunction with the patient's clinical history; particularly when the rules-based system has modified the scores. Legend: -Metavir is a histological scoring system for determining the extent of liver fibrosis and inflammation. STAGE OF FIBROSIS (F scale) F0 = no fibrosis F1 = portal fibrosis without septa F2 = portal fibrosis with few septa F3 = numerous septa without cirrhosis F4 = cirrhosis GRADE OF NECRO-INFLAMMATORY ACTIVITY (A scale) A0 = no activity A1 = mild activity A2 = moderate activity A3 = severe activity -Platelet count result provided by client. -The Prothrombin Index test expresses the Prothrombin Time (PT) as a percentage of normal, and is used to standardize PT results across different instrument/reagent combinations. This test was developed and its performance characteristics determined by [facility]. It has not been cleared or approved by the US Food and Drug Administration. This test was performed in a CLIA certified laboratory and is intended for clinical purposes. Performed By: [facility] [address] [place] [address] [employer] Buffer: Sarwat Gorman MD, PhD CLIA Number: [id number] Performed By: #### L [id number] #### [facility] ([facility]) [address] [place] [address] FIBROMETER PATIENT SCORE 0.62 [facility] Comment on above: Performed By: #### L [id number] #### [facility] ([facility]) [address] [place] [address] FIBROMETER PLATELET COUNT 198 k/uL [facility] Comment on above: Performed By: #### L [id number] #### [facility] ([facility]) [address] [place] [address] FIBROMETER PROTHROMBIN INDEX 81 % Low 90-120 [facility] Comment on above: Performed By: #### L [id number] #### [facility] ([facility]) [address] [place] [address] FIBROSIS METAVIR CLASSIFICATION F2[F1-F3] [facility] Comment on above: Result Comment: INTE RPRETIVE INFORMATION: Fibrosis Metavir Classification FibroMeter (fibrosis score) comments F0/F1 Equal probability between F0 and F1 F1[F1-F2] Predominance of F1, but F2 is possible F2[F1-F2] Predominance of F2, but F1 is possible F2[F1-F3] Predominance of F2, but F1 and F3 are possible F2/F3 Equal probability between F2 and F3 F3[F2-F4] Predominance of F3, but F2 and F4 are possible F3[F3-F4] Predominance of F3, but F4 is possible F4[F3-F4] Predominance of F4, but F3 is possible Performed By: #### L [id number] #### [facility] ([facility]) [address] [place] [address] INFLAMETER METAVIR CLASSIFICATION A1/A2 [facility] Comment on above: Result Comment: INTE RPRETIVE INFORMATION: InflaMeter Metavir Classification InflaMeter (activity score) comments A0/A1 Equal probability between A0 and A1 A1/A2 Equal probability between A1 and A2 A2/A3 Equal probability between A2 and A3 Performed By: #### L [id number] #### [facility] ([facility]) [address] [place] [address] INFLAMETER PATIENT SCORE 0.62 [facility] Comment on above: Performed By: #### L [id number] #### [facility] ([place]) [address] [place] [address] Urea nitrogen [Mass/Vol] 28 mg/dL High 7-20 [facility] Comment on above: Performed By: #### L [id number] #### [facility] ([place]) [address] [facility] [place] [address] Labon 02-27-2024 Lab [id number] Jose Alberto Saleem 1965 F Date Provider Department Center 02/27/2024 [facility] RESOURCE [facility] Family History Problem Relation Age of Onset Hyperlipidemia Mother Hyperlipidemia Father Hyperlipidemia Brother Heart attack Brother Family Status - Relation Status Age at Mother Father Brother Brother Normal [facility] MITOCHONDRIAL ANTIBODIES, M2 on 02-27-2024 MITOCHONDRIAL M2 ANTIBODY 7.2 Units Normal 0.0-24.9 [facility] Comment on above: Result Comment: REFE RENCE INTERVAL: Mitochondrial (M2) Antibody, IgG 20.0 Units or less ......... Negative 20.1 - 24.9 Units........... Equivocal 25.0 Units or greater....... Positive Anti-mitochondrial antibodies (AMA) are thought to be present in 90-95% of patients with primary biliary cholangitis (PBC). However, the frequency of detected antibodies may be cohort or assay dependent, as lower sensitivities have been reported. Not all PBC patients are positive for AMA; some patients may be positive for SP100 and/or GP210 antibodies. A negative result does not rule out PBC. Performed By: [facility] [address] [place] [id number] [employer]: Sarwat Gorman MD, PhD CLIA Number: [id number] Performed By: #### L [id number] #### [facility] ([place]) [address] [facility] [place] [address] Office Visiton 02-27-2024 Follow-up visit [id number] Jose Alberto Saleem 1965 F Date Provider Department [place] 02/27/2024 [facility] Family History Problem Relation Age of Onset Hyperlipidemia Mother Hyperlipidemia Father Hyperlipidemia Brother Heart attack Brother Family Status - Relation Status Age at Mother Father Brother Brother Level of Service:[address] [place] OFFICE/OUTPATIENT NEW MODERATE MDM 45 MINUTES (GC) Reason for Visit and Comments: New Patient [632] Pancreatitis [841341] Normal [facility] PROTIME-INRon 02-27-2024 INR IN PPP BY COAGULATION ASSAY 1.08 Normal 0.90-1.10 [facility] Comment on above: Result Comment: ACCC P RECOMMENDED INR FOR WARFARIN THERAPY CONDITION INR PROPHYLAXIS OF VENOUS THROMBOSIS 2-3 (HIGH-RISK SURGERY) TREATMENT OF VENOUS THROMBOSIS 2-3 TREATMENT OF PULMONARY EMBOLISM 2-3 PREVENTION OF SYSTEMIC EMBOLISM: 2-3 ACUTE MYOCARDIAL INFARCTION TISSUE HEART VALVES VALVULAR HEART DISEASE ATRIAL FIBRILLATION RECURRENT SYSTEMIC EMBOLISM MECHANICAL HEART VALVE 2.5-3.5 FROM: ORAL ANTICOAGULANTS. MECHANISM OF ACTION, CLINICAL EFFECTIVENESS, AND OPTIMAL THERAPEUTIC RANGE. CHEST 1995;108:231S-246S. Performed By: #### L [id number] #### [facility] [address] [place] [address] PROTHROMBIN TIME (PT) IN PPP BY COAGULATION ASSAY 14.0 Seconds Normal 12.3-14.8 [facility] Comment on above: Performed By: #### L [id number] #### [facility] [address] [place] [address] TISSUE TRANSGLUTAMINASE, IGA on 02-27-2024 TISSUE TRANSGLUTAMINASE, IGA <1.02 Normal 0.00-4.99 [facility] Comment on above: Result Comment: INTE RPRETIVE INFORMATION: Tissue Transglutaminase (tTG) Antibody, IgA Presence of the tissue transglutaminase (tTG) IgA antibody is associated with gluten-sensitive enteropathies such as celiac disease and dermatitis herpetiformis. Individuals with positive results should be confirmed with small intestinal biopsy to establish celiac disease diagnosis. tTG IgA antibody concentrations greater than 50 FLU exhibits higher correlation with results of duodenal biopsies consistent with celiac disease. For antibody concentrations greater than or equal to 5 FLU but less than 10 FLU, additional testing for endomysial (KAE) IgA concentrations may improve the positive predictive value for disease. A decrease in tTG IgA antibody concentration after initiation of a gluten-free diet may indicate a response to therapy. Performed By: [facility] [address] [place] [address] [employer]: Sarwat Gorman MD, PhD CLIA Number: [id number] Performed By: #### L [id number] #### [facility] ([facility]) [address] [place] [address] TSH3 REFLEX TO FT4on 024 THYROTROPIN (MIU/L) IN SER/PLAS BY DETECTION LIMIT <= 0.05 MIU/L 2.02 mIU/L Normal 0.34-5.60 [facility] Comment on above: Performed By: #### L [id number] #### [facility] ([facility]) [address] [place] [address] VITAMIN B12on 02-27-2024 Cobalamin (Vitamin B12) [Mass/Vol] 1862 pg/mL High 180-914 [facility] Comment on above: Result Comment: REFE RENCE RANGES: 180-914 pg/mL Normal 145-179 pg/mL Indeterminate <145 pg/mL Deficient Performed By: #### L [id number] #### [facility] ([facility]) [address] [place] [address] VITAMIN D 25 HYDROXYon 02-26 CALCIDIOL (25 [place] VITAMIN D3) (NG/ML) IN SER/PLAS 62.1 ng/mL Normal 30.0-80.0 [facility] Comment on above: Result Comment: >80. 0 Toxicity possible Performed By: #### L [id number] #### [facility] ([facility]) [address] [place] [address] Orders Onlyon 02-12-2024 Orders Only [id number] Jose Alberto Saleem 1965 F Date Provider Department [place] 02/12/2024 [id number], HISTORICAL [facility] No family history on file Normal [facility] Lab Reportson 01-23-2024 Lab Reports [id number] [facility] Lab Reports [id number]#[address] [facility] Lab Reportson 01-22-2024 Lab Reports [id number] [facility] Lab Reports [id number]#[address] [facility] Lab Reports [id number] [facility] RAD - MISCon 01-22-2024 RAD - MISC [id number] [facility] Surgical Pathology Reporton 06-18-2023 Surgical Pathology Report (NOTE) Path Number: [id number] -- Diagnosis -- ENDOMETRIAL CURETTINGS: -BENIGN ENDOMETRIAL [...] Microscopic Description Microscopic examination performed. Processing Lab: [address] [id number] Interpretation Performed at [facility] [address] [place], [place] SURGICAL PATHOLOGY CONSULTATION Patient Name: JOSE ALBERTO SALEEM [facility] Rec: [id number] [facility] ANATOMIC PATHOLOGY [address] [place] [address]. [place], [place] [address] Normal [facility] NON OB TRANSVAGINALon US NON OB TRANSVAGINAL [...] Gaby Tello DO 06/05/[address] [facility] CHAY Antinuclear Antibodieson 12-12-2022 Antinuclear Abs, IFA Negative Normal . [facility] Comment on above: Order Comment: Reaso n for Exam Elevated liver function tests Result Comment: Nega tive <1:80 Borderline 1:80 Positive >1:80 ICAP nomenclature: AC-0 For more information about Hep-2 cell patterns use ANApatterns.org, the official website for the International Consensus on Antinuclear Antibody (CHAY) Patterns (ICAP). Performed at: - [facility] [address] [id number] [employer]: Afshin Martinez PhD, Phone: [phone] Performed By: #### H AABT, SMAB, HCV RX PCR, HBSAG, CERULOP, HBCAB, ALPHA PHEN, IGG, MITOM2, HBSAB, CHAY, L-K MICRO #### [facility] , #### ABDIRASHID #### [address] Hpnkv-0-Qoivtuzfimw Phenotyp anthony 12-12-2022 Alpha 1 Anti-Trypsin 172 mg/dL Normal 101-187 [facility] Comment on above: Order Comment: Reaso n for Exam Elevated liver function tests Performed By: #### H AABT, SMAB, HCV RX PCR, HBSAG, CERULOP, HBCAB, ALPHA PHEN, IGG, MITOM2, HBSAB, CHAY, L-K MICRO #### [facility] , #### ABDIRASHID #### [facility] [address] Phenotype (P1) MM Normal . [facility] Comment on above: Order Comment: Reaso [...] Ranges used to confirm phenotype. Performed at: [address] [id number] [employer]: Afshin Martinez PhD, Phone: [phone] Performed at: [address] [id number] [employer]: Toni Guidry MD, Phone: [phone] Performed By: #### H AABT, SMAB, HCV RX PCR, HBSAG, CERULOP, HBCAB, ALPHA PHEN, IGG, MITOM2, HBSAB, CHAY, L-K MICRO #### [facility] , #### ABDIRASHID #### [facility] [address] [place] [address] [place] Ceruloplasminon 12-12-2022 Ceruloplasmin 30.6 mg/dL Normal 19.0-39.0 [facility] Comment on above: Order Comment: Reaso n for Exam Elevated liver function tests Performed By: #### H AABT, SMAB, HCV RX PCR, HBSAG, CERULOP, HBCAB, ALPHA PHEN, IGG, MITOM2, HBSAB, CHAY, L-K MICRO #### [facility] , #### ABDIRASHID #### [address] Ceruloplasmin 30.6 mg/dL 19.0-39.0 mg/dL [facility] [employer] Other Ferritinon 12-12-2022 Ferritin [Mass/Vol] 43.8 ng/mL Normal 11.0-306.8 [facility] Comment on above: Order Comment: Reaso n for Exam Elevated liver function tests Result Comment: PERF ORMED BY: [place] [address] PATHOLOGIST [employer] JULISSA GA M.D. Performed By: #### H AABT, SMAB, HCV RX PCR, HBSAG, CERULOP, HBCAB, ALPHA PHEN, IGG, MITOM2, HBSAB, CHAY, L-K MICRO #### [facility] , #### ABDIRASHID #### [address] Ferritin [Mass/Vol] 43.4155192 ng/mL Normal 11.0 -306.8 ng/mL [facility] [employer] Other Hep C Ab wRfx to Qnt PCRon 0 12-12-2022 Hepatitis C Virus Antibody Non-Reactive Normal Non Reactive [facility] Comment on above: Order Comment: Reaso n for Exam Elevated liver function tests Performed By: #### H AABT, SMAB, HCV RX PCR, HBSAG, CERULOP, HBCAB, ALPHA PHEN, IGG, MITOM2, HBSAB, CHAY, L-K MICRO #### [facility] , #### ABDIRASHID #### [address] Interpretation Hepatitis C Normal . [facility] Comment on above: Order Comment: Reaso [...] MICRO #### [facility] , #### ABDIRASHID #### [facility] [address] Hepatitis A Antibody Totalon 12-12-2022 Hepatitis A Antibody Total Negative Normal Negative [facility] Comment on above: Order Comment: Reaso n for Exam Elevated liver function tests Result Comment: Perf ormed at: [facility] [id number] [employer]: Afshin Martinez PhD, Phone: [phone] Performed By: #### H AABT, SMAB, HCV RX PCR, HBSAG, CERULOP, HBCAB, ALPHA PHEN, IGG, MITOM2, HBSAB, CHAY, L-K MICRO #### [facility] , #### ABDIRASHID #### [facility] [address] [place] [address] Hepatitis A Antibody Total Negative . [facility] Other Hepatitis B Core Antibodyon 12-12-2022 Hepatitis B Core Antibody Negative Normal Negative [facility] Comment on above: Order Comment: Reaso n for Exam Elevated liver function tests Performed By: #### H AABT, SMAB, HCV RX PCR, HBSAG, CERULOP, HBCAB, ALPHA PHEN, IGG, MITOM2, HBSAB, CHAY, L-K MICRO #### [facility] , #### ABDIRASHID #### [facility] [address] Hepatitis B Surface Antibody on 12-12-2022 Hepatitis B Surface Antibody Non-Reactive Normal . [facility] Comment on above: Order Comment: Reaso n for Exam Elevated liver function tests Result Comment: Non Reactive: Inconsistent with immunity, less than 10 mIU/mL Reactive: Consistent with immunity, greater than 9.9 mIU/mL Performed By: #### H AABT, SMAB, HCV RX PCR, HBSAG, CERULOP, HBCAB, ALPHA PHEN, IGG, MITOM2, HBSAB, CHAY, L-K MICRO #### [facility] , #### ABDIRASHID #### [address] Hepatitis B Surface Antibody Non-Reactive Non Reactive [facility] Other Hepatitis B Surface Antigeno n 12-12-2022 HBsAg Screen Negative Normal Negative [facility] Comment on above: Order Comment: Reaso n for Exam Elevated liver function tests Result Comment: PERF ORMED BY: [place] [address] PATHOLOGIST [employer] JULISSA GA M.D. Performed By: #### H AABT, SMAB, HCV RX PCR, HBSAG, CERULOP, HBCAB, ALPHA PHEN, IGG, MITOM2, HBSAB, CHAY, L-K MICRO #### [facility] , #### ABDIRASHID #### [place] [address] [place] Immunoglobulin Javi Immunoglobulin G 823 mg/dL Normal 586-1602 [facility] Comment on above: Order Comment: Reaso n for Exam Elevated liver function tests Result Comment: Perf ormed at: [facility] [id number] [employer]: Afshin Martinez PhD, Phone: [phone] Performed By: #### H AABT, SMAB, HCV RX PCR, HBSAG, CERULOP, HBCAB, ALPHA PHEN, IGG, MITOM2, HBSAB, CHAY, L-K MICRO #### [facility] , #### ABDIRASHID #### [address] Immunoglobulin G 823 mg/dL 586-1602 mg/dL [facility] Other Liver-Kidney Microsomal Abon 12-12-2022 Liver-Kidney Microsomal Ab 1.1 Normal 0.0-20.0 [facility] Comment on above: Order Comment: Reaso n for Exam Elevated liver function tests Result Comment: Nega tive 0.0 - 20.0 Equivocal 20.1 - 24.9 Positive >24.9 LKM type 1 antibodies are detected in patients with autoimmune hepatitis type 2 and in up to 8% of patients with chronic HCV infection. Performed at: [facility] [employer] [id number] [employer]: Afshin Martinez PhD, Phone: [phone] PERFORMED BY: [place] [address] PATHOLOGIST [employer] JULISSA GA M.D. Performed By: #### H AABT, SMAB, HCV RX PCR, HBSAG, CERULOP, HBCAB, ALPHA PHEN, IGG, MITOM2, HBSAB, CHAY, L-K MICRO #### [facility] , #### ABDIRASHID #### [address] Liver-Kidney Microsomal Ab 1.1 0.0-20.0 [facility] Other Mitochondrial (M2) Antibodyo n 12-12-2022 Mitochondrial (M2) Antibody <20.0 Normal 0.0-20.0 [facility] Comment on above: Order Comment: Reaso n for Exam Elevated liver function tests Result Comment: Nega tive 0.0 - 20.0 Equivocal 20.1 - 24.9 Positive >24.9 Mitochondrial (M2) Antibodies are found in 90-96% of patients with primary biliary cirrhosis. Performed at: [facility] [employer] [id number] [employer]: Afshin Martinez PhD, Phone: [phone] Performed By: #### H AABT, SMAB, HCV RX PCR, HBSAG, CERULOP, HBCAB, ALPHA PHEN, IGG, MITOM2, HBSAB, CHAY, L-K MICRO #### [facility] , #### ABDIRASHID #### [facility] [address] [place] [address] [facility] Mitochondrial (M2) Antibody <20.0 0.0-20.[address] [facility] [employer] Other Smooth Muscle Antibodyon Smooth Muscle Antibody 5 Normal 0-19 [facility] Comment on above: Order Comment: Reaso [...] MICRO #### [facility] , #### ABDIRASHID #### [facility] [address] [place] [address] [facility] Smooth Muscle Antibody 5 0-[address] [facility] [employer] Other MR MRCPon 11-10-2022 MR MRCP [facility] [address] [place] [address] MRI Report Signed Patient: Jose Alberto Saleem MR#: [id number] : 1965 Acct:[id number] Age/Sex: 57 / F ADM Date: 11/10/22 Loc: Room: Type: [facility] Attending Dr: Evert Bruno MD Copies to: [...] There is no dilated bowel within the ckjzy-by-arsa. MR/MR MRCP IMPRESSION: SLIGHTLY PROMINENT COMMON DUCT, WITHOUT CHOLEDOCHOLITHIASIS. THIS MAY RELATE TO PREVIOUS CHOLECYSTECTOMY. RIGHT RENAL CYSTS. NO OTHER SIGNIFICANT MRI FINDINGS. Impression dictated by: Thelma Wick M.D.11/10/2022 7:00 PM Dictation Location: [place] [address] Transcribed By: [facility] 11/10/221899 Dictated By: Thelma Wick MD 11/10/221849 Signed By: 11/10/221899 [facility] MR MRCP [facility] [employer] Other MR MRCP [facility] [employer] Other MR MRCP [address] [place] [address] [employer] Other MR MRCP [address] [employer] Other MR MRCP MRI Report [facility] [employer] Other MR MRCP Signed [facility] Other MR MRCP Patient: Jose Alberto Saleem MR#: [id number] [place] [employer] Other MR MRCP 571 [facility] Other MR MRCP : 1965 Acct:[id number] [facility] Other MR MRCP Age/Sex: 57 / F ADM Date: 11/10/22 [facility] Other MR MRCP Loc: MR Room: Type: [facility] [employer] Other MR MRCP Attending Dr: Evert Bruno MD [facility] Other MR MRCP Copies to: Evetr Bruno MD [facility] Other MR MRCP Ordering Provider: Evert Bruno MD [facility] Other MR MRCP Date of Service: 11/10/22 [facility] Other MR MRCP MR/MR MRCP: Abdominal pain;Common bile duct dilatation;Elevated liver en [facility] Other MR MRCP MRCP [facility] [employer] Other MR MRCP CLINICAL DATA: Elevated lipase. Abnormal outside abdominal CT [facility] Other MR MRCP COMPARISON: CT abdomen 10/16/2022 [facility] Other MR MRCP Multiecho imaging of the abdomen was performed along with radial imaging of the biliary tree. [facility] Other MR MRCP The gallbladder surgically absent. There is no significant intrahepatic biliary dilatation. The [facility] Other MR MRCP common duct is slightly prominent measuring up to 6 mm. It tapers toward the ampulla. No in [facility] Other MR MRCP traluminal filling defects are identified to suggest choledocholithiasis. The pancreatic duct is [facility] Other MR MRCP also borderline prominent measuring 2 - 3 mm. No intrahepatic masses are identified. No pancreatic [facility] Other MR MRCP abnormalities are noted. The spleen and adrenal glands are within normal limits. There is no [facility] Other MR MRCP hydronephrosis. Ther e are right renal cysts. There is no aortic aneurysm. No adenopathy or [facility] Other MR MRCP ascites is seen. There is no dilated bowel within the onbwn-ju-vhiy. [facility] Other MR MRCP MR/MR MRCP [facility] [employer] Other MR MRCP IMPRESSION: [facility] [employer] Other MR MRCP SLIGHTLY PROMINENT COMMON DUCT, WITHOUT CHOLEDOCHOLITHIASIS. THIS MAY RELATE TO PREVIOUS [facility] [employer] Other MR MRCP CHOLECYSTECTOMY. [facility] [employer] Other MR MRCP RIGHT RENAL CYSTS. [employer] Other MR MRCP NO OTHER SIGNIFICANT MRI FINDINGS. [facility] Other MR MRCP Impression dictated by: Thelma Wick M.D.11/10/2022 7:00 PM [facility] Other MR MRCP Dictation Location: [address] [employer] Other MR MRCP Transcribed By: BEN 11/10/221899 [facility] Other MR MRCP Dictated By: Thelma Wick MD 11/10/221849 [facility] Other MR MRCP Signed By: [facility] Other MR [facility]CP 11/10/221899 [facility] [employer] Other Albumin [Mass/volume] in Ser um or PlasmaOrdered By: Evert Bruno on 11-01-2022 Albumin [Mass/Vol] 4.0 g/dL 3.2-5.5 [facility] Direct bilirubin measurement Ordered By: Imsara Bruno on 11-01-2022 Bilirubin.direct [Mass/Vol] 0.1 mg/dL 0.0-0.4 [facility] Globulin Calc (S) [Mass/Vol] Ordered By: Imsara Bruno on 11-01-2022 Globulin (S) [Mass/Vol] 2.5 g/dL [facility] Hepatic Panelon 11-01-2022 Albumin [Mass/Vol] 4.422214 g/dL Normal 3.2-5.5 g/dL N [facility] [employer] Other Bilirubin [Mass/Vol] 0.8166847 mg/dL Normal 0.3-1.2 mg /dL [place] [employer] Other Bilirubin.indirect [Mass/Vol] 0.6958509 mg/dL Normal 0.0-0.4 mg/dL [place] [employer] Other Protein [Mass/Vol] 6.828210 g/dL Normal 6.1-7.9 g/dL N [facility] [employer] Other Hepatic Panel 0.5 mg/dL [facility] Other Hepatic Panel 2.5 g/dL [facility] [employer] Other Albumin [Mass/Vol] 4.0 g/dL Normal 3.2-5.5 [facility] Comment on above: Order Comment: Reaso n for Exam Elevated liver enzymes Performed By: #### H EPATIC #### [facility] [address] [place] [id number] [facility] Albumin/Globulin [Mass ratio] 1.6 {ratio} Normal [facility] Comment on above: Order Comment: Reaso n for Exam Elevated liver enzymes Performed By: #### H EPATIC #### [address] [address] [place] ALP [Catalytic activity/Vol] 93 U/L High 32-92 [facility] Comment on above: Order Comment: Reaso n for Exam Elevated liver enzymes Result Comment: PERF ORMED BY: [place] [address] PATHOLOGIST [employer] JULISSA GA M.D. Performed By: #### H EPATIC #### [facility] [address] [place] [address] [place] ALT [Catalytic activity/Vol] 94 U/L High 10-60 [facility] Other Comment on above: Order Comment: Reaso n for Exam Elevated liver enzymes Performed By: #### H EPATIC #### [facility] [address] [place] [id number] [facility] AST [Catalytic activity/Vol] 66 U/L High 10-42 [facility] Comment on above: Order Comment: Reaso n for Exam Elevated liver enzymes Performed By: #### H EPATIC #### [facility] [address] [place] [id number] [place] Bilirubin [Mass/Vol] 0.6 mg/dL Normal 0.3-1.2 [facility] Comment on above: Order Comment: Reaso n for Exam Elevated liver enzymes Performed By: #### H EPATIC #### [place] [address] [place] Bilirubin,Indirect 0.5 mg/dL Normal [facility] Comment on above: Order Comment: Reaso n for Exam Elevated liver enzymes Performed By: #### H EPATIC #### [address] Bilirubin.indirect [Mass/Vol] 0.1 mg/dL Normal 0.0-0.4 [facility] Comment on above: Order Comment: Reaso n for Exam Elevated liver enzymes Performed By: #### H EPATIC #### [place] [id number] [place] Globulin (S) [Mass/Vol] 2.5 g/dL Normal [facility] Comment on above: Order Comment: Reaso n for Exam Elevated liver enzymes Performed By: #### H EPATIC #### [place] [id number] [place] Protein [Mass/Vol] 6.5 g/dL Normal 6.1-7.9 [facility] Comment on above: Order Comment: Reaso n for Exam Elevated liver enzymes Performed By: #### H EPATIC #### [facility] [address] [place], [place] [id number] [place] Protein [Mass/volume] in Ser um or PlasmaOrdered By: Evert Bruno on 11-01-2022 Protein [Mass/Vol] 6.5 g/dL 6.1-7.9 [facility] Serum or plasma alanine li otransferase measurement without P-5'-P (enzymatic activiOrdered By: Evert Bruno on 11-01-2022 ALT No additional P-5'-P [Catalytic activity/Vol] 94 U/L 10-60 [facility] Serum or plasma albumin/glob ulin mass ratioOrdered By: [facility] on 11-01-2022 Albumin/Globulin [Mass ratio] 1.6 {ratio} [facility] Serum or plasma alkaline monster sphatase measurement (enzymatic activity/volume)Ordered By: [facility] on 11-01-2022 ALP [Catalytic activity/Vol] 93 U/L 32-92 [facility] Serum or plasma aspartate am inotransferase measurement (enzymatic activity/volume)Ordered By: [facility] on 11-01-2022 AST [Catalytic activity/Vol] 66 U/L 10-42 [facility] Serum or plasma non-glucuron idated bilirubin measurement (mass/volume)Ordered By: [facility] on 11-01-2022 Bilirubin.indirect [Mass/Vol] 0.5 mg/dL [facility] Serum or plasma total biliru bin measurement (mass/volume)Ordered By: [facility] on 11-01-2022 Bilirubin [Mass/Vol] 0.6 mg/dL 0.3-1.[address] [facility] [address] ABDOMEN WO/W CONon 2022 CT ABDOMEN [...] JAE WILSON Date: 2022-10-17 08:23 Normal [facility] AMMONIAon 10-09-2022 Ammonia (P) [Moles/Vol] 10 umol/L Critically low 11-32 [facility] Comment on above: Performed By: #### A MY #### [facility] Laboratory [address] [place] [address] Dr. Ayden Cam AMYLASEon 10-09-2022 Amylase [Catalytic activity/Vol] 144 U/L Critically high 25-115 [facility] Comment on above: Performed By: #### L IPA #### [facility] Laboratory [address] [place] [address] Dr. Ayden Cam CBC AUTO DIFFon 10-09-2022 BASO # 0.0 103/ul Normal 0.0-0.1 [facility] Comment on above: Performed By: #### C BC #### [facility] Laboratory [address] [place] [address] Dr. Ayden Cam Basophils/100 WBC (Bld) 0.2 % Normal 0.2-2.0 [facility] Comment on above: Performed By: #### C BC #### [facility] Laboratory [address] [place] [address] Dr. Ayden Cam EO # 0.2 103/ul Normal 0.0-0.7 [facility] Comment on above: Performed By: #### C BC #### [facility] Laboratory [address] [place] [address] Dr. Ayden Cam Eosinophils/100 WBC (Bld) 3.3 % Normal 0.9-7.0 [facility] Comment on above: Performed By: #### C BC #### [facility] Laboratory [address] [place] [address] Dr. Ayden Cam Erythrocyte distribution width (RBC) [Ratio] 12.1 % Normal 11.0-15.0 [facility] Comment on above: Performed By: #### C BC #### [facility] Laboratory [address] [address] [address] Ayden Cam Hematocrit (Bld) [Volume fraction] 40.0 % Normal 36.0-48.0 [facility] Comment on above: Performed By: #### C BC #### [facility] Laboratory [address] [address] [address] Ayden Cam Hemoglobin (Bld) [Mass/Vol] 14.2 g/dL Normal 12.0-16.0 [facility] Comment on above: Performed By: #### C BC #### [facility] Laboratory [address] [address] [address] Ayden Cam IG # 0.01 10e3/ul Normal 0.00-0.03 [facility] Comment on above: Performed By: #### C BC #### [facility] Laboratory [address] [address] [address] Ayden Cam IG % 0.2 % Normal 0.0-0.5 [facility] Comment on above: Performed By: #### C BC #### [facility] [address] [address] [address] Ayden Cam LYMPH # 1.5 103/ul Normal 1.2-3.8 [facility] Comment on above: Performed By: #### C BC #### [facility] [address] [address] [address] Ayden Cam Lymphocytes/100 WBC (Bld) 24.2 % Normal 20.5-60.0 [facility] Comment on above: Performed By: #### C BC #### [facility] Laboratory [address] [place] [address] Dr. Ayden Cam MANUAL DIFF REQ NO Normal [facility] Comment on above: Performed By: #### C BC #### [facility] Laboratory [address] [place] [address] Dr. Ayden Cam MCH (RBC) [Entitic mass] 30.0 pg Normal 26.7-34.0 [facility] Comment on above: Performed By: #### C BC #### [facility] [address] [address] [address] Ayden Cam MCHC (RBC) [Mass/Vol] 35.5 g/dL Critically high 29.9-35.2 [facility] Comment on above: Performed By: #### C BC #### [facility] [address] [address] [address] Ayden Cam MCV (RBC) [Entitic vol] 84.4 fL Normal 81.0-99.0 [facility] Comment on above: Performed By: #### C BC #### [facility] [address] [address] [address] Ayden Cam MONO # 0.6 103/ul Normal 0.3-0.8 [facility] Comment on above: Performed By: #### C BC #### [facility] [address] [place] [address] Dr. Ayden Cam Monocytes/100 WBC (Bld) 10.3 % Normal 1.7-12.0 [facility] Comment on above: Performed By: #### C BC #### [facility] Laboratory [address] [place] [address] Dr. Ayden Cam NEUT # 3.7 103/ul Normal 1.4-6.5 [facility] Comment on above: Performed By: #### C BC #### [facility] [address] [place] [address] Dr. Ayden Cam Neutrophils/100 WBC (Bld) 61.8 % Normal 43.0-75.0 [facility] Comment on above: Performed By: #### C BC #### [facility] Laboratory [address] [address] [address] Ayden Cam Platelet mean volume (Bld) [Entitic vol] 9.0 fL Critically low 9.5-13.5 [facility] Comment on above: Performed By: #### C BC #### [facility] Laboratory [address] [place] [address] Dr. Ayden Cam PLT 191 103/ul Normal 150-450 [facility] Comment on above: Performed By: #### C BC #### [facility] [address] [place] [address] Dr. Ayden Cam RBC 4.74 106/ul Normal 4.20-5.40 [facility] Comment on above: Performed By: #### C BC #### [facility] [address] [place] [address] Dr. Ayden Cam WBC 6.0 103/ul Normal 4.0-11.0 [facility] Comment on above: Performed By: #### C BC #### [facility] [address] [place] [address] Dr. Ayden Cam LIPASEon 10-09-2022 Lipase [Catalytic activity/Vol] 168.0 U/L Normal 73.0-393.0 [facility] Comment on above: Performed By: #### L ACT #### [facility] Laboratory [address] [place] [address] Dr. Ayden Cam PROF 14(COMP METB)on 023 Albumin [Mass/Vol] 3.6 g/dL Normal 3.4-5.0 [facility] Comment on above: Performed By: #### L IPA #### [facility] [address] [place] [address] Dr. Ayden Cam Albumin/Globulin [Mass ratio] 1.1 {ratio} Normal [facility] Comment on above: Performed By: #### L IPA #### [facility] [address] [place] [address] Dr. Ayden Cam ALP [Catalytic activity/Vol] 93 U/L Normal 46-116 [facility] Comment on above: Performed By: #### L IPA #### [facility] [address] [place] [address] Dr. Ayden Cam ALT [Catalytic activity/Vol] 52 U/L Normal 14-59 [facility] Comment on above: Performed By: #### L IPA #### [facility] [address] [place] [address] Dr. Ayden Cam Anion gap [Moles/Vol] 10.2 mmol/L Normal [facility] Comment on above: Performed By: #### L IPA #### [facility] [address] [address] [address] Ayden Cam AST [Catalytic activity/Vol] 33 U/L Normal 15-37 [facility] Comment on above: Performed By: #### L IPA #### [facility] [address] [address] [address] Ayden Cam Bilirubin [Mass/Vol] 0.3 mg/dL Normal 0.2-1.0 [facility] Comment on above: Performed By: #### L IPA #### [facility] [address] [address] [address] Ayden Cam Calcium [Mass/Vol] 9.4 mg/dL Normal 8.5-10.1 [facility] Comment on above: Performed By: #### L IPA #### [facility] [address] [place] [address] Dr. Ayden Cam Chloride [Moles/Vol] 99 mmol/L Normal 98-107 [facility] Comment on above: Performed By: #### L IPA #### [facility] [address] [place] [address] Dr. Ayden Cam CO2 [Moles/Vol] 33.7 mmol/L Critically high 21.0-32.0 [facility] Comment on above: Performed By: #### L IPA #### [facility] [address] [place] [address] Dr. Ayden Cam Creatinine [Mass/Vol] 0.62 mg/dL Normal 0.55-1.02 [facility] Comment on above: Performed By: #### L IPA #### [facility] [address] [place] [address] Dr. Ayden Cam EGFR-AF MARTINIQUAIS >60 Normal >=60 [facility] Comment on above: Performed By: #### L IPA #### [facility] [address] [place] [address] Dr. Ayden Cam EGFR-NON AF MARTINIQUAIS >60 Normal >=60 [facility] Comment on above: Performed By: #### L IPA #### [facility] [address] [place] [address] Dr. Ayden Cam Globulin (S) [Mass/Vol] 3.4 g/dL Normal [facility] Comment on above: Performed By: #### L IPA #### [facility] [address] [address] [address] Ayden Cam Glucose [Mass/Vol] 105 mg/dL Normal 74-106 [facility] Comment on above: Performed By: #### L IPA #### [facility] [address] [address] [address] Ayden Cam Potassium [Moles/Vol] 3.9 mmol/L Normal 3.5-5.1 [facility] Comment on above: Performed By: #### L IPA #### [facility] [address] [address] [address] Ayden Cam Protein [Mass/Vol] 7.0 g/dL Normal 6.4-8.2 [facility] Comment on above: Performed By: #### L IPA #### [facility] [address] [address] [address] Ayden Cam Sodium [Moles/Vol] 139 mmol/L Normal 136-145 [facility] Comment on above: Performed By: #### L IPA #### [facility] [address] [address] [address] Ayden Cam Urea nitrogen [Mass/Vol] 28.0 mg/dL Critically high 7.0-18.0 [facility] Comment on above: Performed By: #### L IPA #### [facility] [address] [address] [address] Ayden Cam Urea nitrogen/Creatinine [Mass ratio] 45.2 mg/mg Normal [facility] Comment on above: Performed By: #### L IPA #### [facility] [address] [address] [address] Ayden Cam AMMONIAon 10-06-2022 Ammonia (P) [Moles/Vol] 16 umol/L Normal 11-32 [facility] Comment on above: Performed By: #### A MM #### [facility] [address] [address] [address] Ayden Cam AMYLASEon 10-06-2022 Amylase [Catalytic activity/Vol] 189 U/L Critically high 25-115 [facility] Comment on above: Performed By: #### L IPA #### [facility] [address] [place] [address] Dr. Ayden Cam CBC AUTO DIFFon 10-06-2022 BASO # 0.0 103/ul Normal 0.0-0.1 [facility] Comment on above: Performed By: #### C BC #### [facility] [address] [place] [address] Dr. Ayden Cam Basophils/100 WBC (Bld) 0.2 % Normal 0.2-2.0 [facility] Comment on above: Performed By: #### C BC #### [facility] [address] [place] [address] Dr. Ayden Cam EO # 0.3 103/ul Normal 0.0-0.7 [facility] Comment on above: Performed By: #### C BC #### [facility] [address] [place] [address] Dr. Ayden Cam Eosinophils/100 WBC (Bld) 5.2 % Normal 0.9-7.0 [facility] Comment on above: Performed By: #### C BC #### [facility] [address] [place] [address] Dr. Ayden Cam Erythrocyte distribution width (RBC) [Ratio] 12.3 % Normal 11.0-15.0 [facility] Comment on above: Performed By: #### C BC #### [facility] [address] [place] [address] Dr. Ayden Cam Hematocrit (Bld) [Volume fraction] 36.9 % Normal 36.0-48.0 [facility] Comment on above: Performed By: #### C BC #### [facility] [address] [place] [address] Dr. Ayden Cam Hemoglobin (Bld) [Mass/Vol] 12.4 g/dL Normal 12.0-16.0 [facility] Comment on above: Performed By: #### C BC #### [facility] [address] [place] [address] Dr. Ayden Cam IG # 0.01 10e3/ul Normal 0.00-0.03 [facility] Comment on above: Performed By: #### C BC #### [facility] [address] [place] [address] Dr. Ayden Cam IG % 0.2 % Normal 0.0-0.5 [facility] Comment on above: Performed By: #### C BC #### [facility] [address] [place] [address] Dr. Ayden Cam LYMPH # 1.8 103/ul Normal 1.2-3.8 [facility] Comment on above: Performed By: #### C BC #### [facility] [address] [place] [address] Dr. Ayden Cam Lymphocytes/100 WBC (Bld) 31.3 % Normal 20.5-60.0 [facility] Comment on above: Performed By: #### C BC #### [facility] [address] [place] [address] Dr. Ayden Cam MANUAL DIFF REQ NO Normal [facility] Comment on above: Performed By: #### C BC #### [facility] [address] [place] [address] Dr. Ayden Cam MCH (RBC) [Entitic mass] 30.0 pg Normal 26.7-34.0 [facility] Comment on above: Performed By: #### C BC #### [facility] [address] [place] [address] Dr. Ayden Cam MCHC (RBC) [Mass/Vol] 33.6 g/dL Normal 29.9-35.2 [facility] Comment on above: Performed By: #### C BC #### [facility] [address] [place] [address] Dr. Ayden Cam MCV (RBC) [Entitic vol] 89.1 fL Normal 81.0-99.0 [facility] Comment on above: Performed By: #### C BC #### [facility] [address] [place] [address] Dr. Ayden Cam MONO # 0.6 103/ul Normal 0.3-0.8 [facility] Comment on above: Performed By: #### C BC #### [facility] [address] [place] [address] Dr. Ayden Cam Monocytes/100 WBC (Bld) 10.1 % Normal 1.7-12.0 [facility] Comment on above: Performed By: #### C BC #### [facility] [address] [address] [address] Ayden Cam NEUT # 3.1 103/ul Normal 1.4-6.5 [facility] Comment on above: Performed By: #### C BC #### [facility] [address] [place] [address] Dr. Ayden Cam Neutrophils/100 WBC (Bld) 53.0 % Normal 43.0-75.0 [facility] Comment on above: Performed By: #### C BC #### [facility] [address] [place] [address] Dr. Ayden Cam Platelet mean volume (Bld) [Entitic vol] 9.4 fL Critically low 9.5-13.5 [facility] Comment on above: Performed By: #### C BC #### [facility] [address] [place] [address] Dr. Ayden Cam PLT 153 103/ul Normal 150-450 [facility] Comment on above: Performed By: #### C BC #### [facility] [address] [place] [address] Dr. Ayden Cam RBC 4.14 106/ul Critically low 4.20-5.40 [facility] Comment on above: Performed By: #### C BC #### [facility] [address] [place] [address] Dr. Ayden Cam WBC 5.8 103/ul Normal 4.0-11.0 [facility] Comment on above: Performed By: #### C BC #### [facility] Laboratory [address] [place] [address] Dr. Ayden Cam LIPASEon 10-06-2022 Lipase [Catalytic activity/Vol] 166.0 U/L Normal 73.0-393.0 [facility] Comment on above: Performed By: #### L IPA #### [facility] [address] [address] [address] Ayden Cam LIVER PROFILEon 10-06-2022 Albumin [Mass/Vol] 3.2 g/dL Critically low 3.4-5.0 Th e [facility] Comment on above: Performed By: #### L IPA #### [facility] [address] [place] [address] Dr. Ayden Cam Albumin/Globulin [Mass ratio] 1.3 {ratio} Normal [facility] Comment on above: Performed By: #### L IPA #### [facility] [address] [place] [address] Dr. Ayden Cam ALP [Catalytic activity/Vol] 88 U/L Normal 46-116 [facility] Comment on above: Performed By: #### L IPA #### [facility] [address] [place] [address] Dr. Ayden Cam ALT [Catalytic activity/Vol] 66 U/L Critically high 14-59 [facility] Comment on above: Performed By: #### L IPA #### [facility] [address] [place] [address] Dr. Ayden Cam AST [Catalytic activity/Vol] 39 U/L Critically high 15-37 [facility] Comment on above: Performed By: #### L IPA #### [facility] [address] [place] [address] Dr. Ayden Cam BILI, CONJUGATED 0.1 mg/dL Normal 0.0-0.2 [facility] Comment on above: Performed By: #### L IPA #### [facility] [address] [place] [address] Dr. Ayden Cam Bilirubin [Mass/Vol] 0.4 mg/dL Normal 0.2-1.0 [facility] Comment on above: Performed By: #### L IPA #### [facility] [address] [place] [address] Dr. Ayden Cam Globulin (S) [Mass/Vol] 2.4 g/dL Normal [facility] Comment on above: Performed By: #### L IPA #### [facility] [address] [address] [address] Ayden Cam Protein [Mass/Vol] 5.6 g/dL Critically low 6.4-8.2 [facility] Comment on above: Performed By: #### L IPA #### [facility] [address] [place] [address] Dr. Ayden Cam PROF CHEM 8 (BAS METB)on Anion gap [Moles/Vol] 6.8 mmol/L Normal [facility] Comment on above: Performed By: #### L IPA #### [facility] [address] [address] [address] Ayden Cam Calcium [Mass/Vol] 8.6 mg/dL Normal 8.5-10.1 [facility] Comment on above: Performed By: #### L IPA #### [facility] [address] [place] [address] Dr. Ayden Cam Chloride [Moles/Vol] 102 mmol/L Normal 98-107 [facility] Comment on above: Performed By: #### L IPA #### [facility] [address] [address] [address] Ayden Cam CO2 [Moles/Vol] 32.6 mmol/L Critically high 21.0-32.0 [facility] Comment on above: Performed By: #### L IPA #### [facility] [address] [place] [address] Dr. Ayden Cam Creatinine [Mass/Vol] 0.61 mg/dL Normal 0.55-1.02 [facility] Comment on above: Performed By: #### L IPA #### [facility] [address] [place] [address] Dr. Ayden Cam EGFR-AF MARTINIQUAIS >60 Normal >=60 [facility] Comment on above: Performed By: #### L IPA #### [facility] [address] [place] [address] Dr. Ayden Cam EGFR-NON AF MARTINIQUAIS >60 Normal >=60 [facility] Comment on above: Performed By: #### L IPA #### [facility] [address] [address] [address] Ayden Cam Glucose [Mass/Vol] 91 mg/dL Normal 74-106 [facility] Comment on above: Performed By: #### L IPA #### [facility] [address] [address] [address] Ayden Cam Potassium [Moles/Vol] 3.4 mmol/L Critically low 3.5-5.1 [facility] Comment on above: Performed By: #### L IPA #### [facility] Laboratory [address] [address] [address] Ayden Cam Sodium [Moles/Vol] 138 mmol/L Normal 136-145 [facility] Comment on above: Performed By: #### L IPA #### [facility] Laboratory [address] [address] [address] Ayden Cam Urea nitrogen [Mass/Vol] 13.0 mg/dL Normal 7.0-18.0 [facility] Comment on above: Performed By: #### L IPA #### [facility] Laboratory [address] [address] [address] Ayden Cam Urea nitrogen/Creatinine [Mass ratio] 21.3 mg/mg Normal [facility] Comment on above: Performed By: #### L IPA #### [facility] Laboratory [address] [address] [address] Ayden Cam AMMONIAon 10-05-2022 Ammonia (P) [Moles/Vol] 10 umol/L Critically low 11-32 [facility] Comment on above: Performed By: #### A MM #### [facility] Laboratory [address] [address] [address] Ayden Cam AMYLASEon 10-05-2022 Amylase [Catalytic activity/Vol] 109 U/L Normal 25-115 [facility] Comment on above: Performed By: #### A MY #### [facility] Laboratory [address] [address] [address] Ayden Cam CBC AUTO DIFFon 10-05-2022 BASO # 0.0 103/ul Normal 0.0-0.1 [facility] Comment on above: Performed By: #### L IPA #### [facility] Laboratory [address] [address] [address] Ayden Cam Basophils/100 WBC (Bld) 0.3 % Normal 0.2-2.0 [facility] Comment on above: Performed By: #### L IPA #### [facility] Laboratory [address] [address] [address] Ayden Cam EO # 0.3 103/ul Normal 0.0-0.7 [facility] Comment on above: Performed By: #### L IPA #### [facility] Laboratory [address] [address] [address] Ayden Cam Eosinophils/100 WBC (Bld) 4.3 % Normal 0.9-7.0 [facility] Comment on above: Performed By: #### L IPA #### [facility] Laboratory [address] [place] [address] Dr. Ayden Cam Erythrocyte distribution width (RBC) [Ratio] 12.2 % Normal 11.0-15.0 [facility] Comment on above: Performed By: #### L IPA #### [facility] Laboratory [address] [address] [address] Ayden Cam Hematocrit (Bld) [Volume fraction] 38.9 % Normal 36.0-48.0 [facility] Comment on above: Performed By: #### L IPA #### [facility] Laboratory [address] [address] [address] Ayden Cam Hemoglobin (Bld) [Mass/Vol] 12.8 g/dL Normal 12.0-16.0 [facility] Comment on above: Performed By: #### L IPA #### [facility] Laboratory [address] [address] [address] Ayden Cam IG # 0.01 10e3/ul Normal 0.00-0.03 [facility] Comment on above: Performed By: #### L IPA #### [facility] Laboratory [address] [address] [address] Ayden Cam IG % 0.2 % Normal 0.0-0.5 [facility] Comment on above: Performed By: #### L IPA #### [facility] Laboratory [address] [place] [address] Dr. Ayden Cam LYMPH # 1.9 103/ul Normal 1.2-3.8 [facility] Comment on above: Performed By: #### L IPA #### [facility] Laboratory [address] [place] [address] Dr. Ayden Cam Lymphocytes/100 WBC (Bld) 31.4 % Normal 20.5-60.0 [facility] Comment on above: Performed By: #### L IPA #### [facility] Laboratory [address] [place] [address] Dr. Ayden Cam MANUAL DIFF REQ NO Normal [facility] Comment on above: Performed By: #### L IPA #### [facility] Laboratory [address] [place] [address] Dr. Ayden Cam MCH (RBC) [Entitic mass] 29.6 pg Normal 26.7-34.0 [facility] Comment on above: Performed By: #### L IPA #### [facility] Laboratory [address] [place] [address] Dr. Ayden Cam MCHC (RBC) [Mass/Vol] 32.9 g/dL Normal 29.9-35.2 [facility] Comment on above: Performed By: #### L IPA #### [facility] Laboratory [address] [place] [address] Dr. Ayden Cam MCV (RBC) [Entitic vol] 89.8 fL Normal 81.0-99.0 [facility] Comment on above: Performed By: #### L IPA #### [facility] Laboratory [address] [place] [address] Dr. Ayden Cam MONO # 0.6 103/ul Normal 0.3-0.8 [facility] Comment on above: Performed By: #### L IPA #### [facility] Laboratory [address] [place] [address] Dr. Ayden Cam Monocytes/100 WBC (Bld) 10.1 % Normal 1.7-12.0 [facility] Comment on above: Performed By: #### L IPA #### [facility] Laboratory [address] [place] [address] Dr. Ayden Cam NEUT # 3.2 103/ul Normal 1.4-6.5 [facility] Comment on above: Performed By: #### L IPA #### [facility] Laboratory [address] [place] [address] Dr. Ayden Cam Neutrophils/100 WBC (Bld) 53.7 % Normal 43.0-75.0 [facility] Comment on above: Performed By: #### L IPA #### [facility] Laboratory [address] [place] [address] Dr. Ayden Cam Platelet mean volume (Bld) [Entitic vol] 9.7 fL Normal 9.5-13.5 [facility] Comment on above: Performed By: #### L IPA #### [facility] Laboratory [address] [place] [address] Dr. Ayden Cam PLT 168 103/ul Normal 150-450 [facility] Comment on above: Performed By: #### L IPA #### [facility] Laboratory [address] [place] [address] Dr. Ayden Cam RBC 4.33 106/ul Normal 4.20-5.40 [facility] Comment on above: Performed By: #### L IPA #### [facility] Laboratory [address] [place] [address] Dr. Ayden Cam WBC 6.0 103/ul Normal 4.0-11.0 [facility] Comment on above: Performed By: #### L IPA #### [facility] Laboratory [address] [place] [address] Dr. Ayden Cam LIPASEon 10-05-2022 Lipase [Catalytic activity/Vol] 151.0 U/L Normal 73.0-393.0 [facility] Comment on above: Performed By: #### L IPA #### [facility] Laboratory [address] [place] [address] Dr. Ayden Cam LIVER PROFILEon 10-05-2022 Albumin [Mass/Vol] 3.2 g/dL Critically low 3.4-5.0 [facility] Comment on above: Performed By: #### L ACT #### [facility] Laboratory [address] [address] [address] Ayden Cam Albumin/Globulin [Mass ratio] 1.1 {ratio} Normal [facility] Comment on above: Performed By: #### L ACT #### [facility] Laboratory [address] [address] [address] Ayden Cam ALP [Catalytic activity/Vol] 82 U/L Normal 46-116 [facility] Comment on above: Performed By: #### L ACT #### [facility] [address] [address] [address] Ayden Cam ALT [Catalytic activity/Vol] 70 U/L Critically high 14-59 [facility] Comment on above: Performed By: #### L ACT #### [facility] Laboratory [address] [place] [address] Dr. Ayden Cam AST [Catalytic activity/Vol] 36 U/L Normal 15-37 [facility] Comment on above: Performed By: #### L ACT #### [facility] Laboratory [address] [place] [address] Dr. Ayden Cam BILI, CONJUGATED 0.1 mg/dL Normal 0.0-0.2 [facility] Comment on above: Performed By: #### L ACT #### [facility] Laboratory [address] [place] [address] Dr. Ayden Cam Bilirubin [Mass/Vol] 0.3 mg/dL Normal 0.2-1.0 [facility] Comment on above: Performed By: #### L ACT #### [facility] Laboratory [address] [place] [address] Dr. Ayden Cam Globulin (S) [Mass/Vol] 3.0 g/dL Normal [facility] Comment on above: Performed By: #### L ACT #### [facility] Laboratory [address] [place] [address] Dr. Ayden Cam Protein [Mass/Vol] 6.2 g/dL Critically low 6.4-8.2 [facility] Comment on above: Performed By: #### L ACT #### [facility] Laboratory [address] [place] [address] Dr. Ayden Cam PROF CHEM 8 (BAS METB)on Anion gap [Moles/Vol] 9.5 mmol/L Normal [facility] Comment on above: Performed By: #### B MP #### [facility] Laboratory [address] [address] [address] Ayden Cam Calcium [Mass/Vol] 8.9 mg/dL Normal 8.5-10.1 [facility] Comment on above: Performed By: #### B MP #### [facility] Laboratory [address] [address] [address] Ayden Cam Chloride [Moles/Vol] 105 mmol/L Normal 98-107 [facility] Comment on above: Performed By: #### B MP #### [facility] Laboratory [address] [place] [address] Dr. Ayden Cam CO2 [Moles/Vol] 29.6 mmol/L Normal 21.0-32.0 [facility] Comment on above: Performed By: #### B MP #### [facility] Laboratory [address] [address] [address] Ayden Cam Creatinine [Mass/Vol] 0.56 mg/dL Normal 0.55-1.02 [facility] Comment on above: Performed By: #### B MP #### [facility] Laboratory [address] [place] [address] Dr. Ayden Cam EGFR-AF MARTINIQUAIS >60 Normal >=60 [facility] Comment on above: Performed By: #### B MP #### [facility] Laboratory [address] [address] [address] Ayden Cam EGFR-NON AF MARTINIQUAIS >60 Normal >=60 [facility] Comment on above: Performed By: #### B MP #### [facility] Laboratory [address] [place] [address] Dr. Ayden Cam Glucose [Mass/Vol] 88 mg/dL Normal 74-106 [facility] Comment on above: Performed By: #### B MP #### [facility] Laboratory [address] [address] [address] Ayden Cam Potassium [Moles/Vol] 4.1 mmol/L Normal 3.5-5.1 [facility] Comment on above: Performed By: #### B MP #### [facility] Laboratory [address] [address] [address] Ayden Cam Sodium [Moles/Vol] 140 mmol/L Normal 136-145 [facility] Comment on above: Performed By: #### B MP #### [facility] Laboratory [id number] Ayden Cam Urea nitrogen [Mass/Vol] 15.0 mg/dL Normal 7.0-18.0 [facility] Comment on above: Performed By: #### B MP #### [facility] Laboratory [address] [address] [address] Ayden Cam Urea nitrogen/Creatinine [Mass ratio] 26.8 mg/mg Normal [facility] Comment on above: Performed By: #### B MP #### [facility] Laboratory [address] [place] [address] Dr. Ayden Cam US Jhony 10-05-2022 US [...] RONAN TORIBIO Date: 2022-10-05 09:52 Normal [facility] XR KUB 1 VIEWon 10-05-2022 XR KUB [...] RONAN TORIBIO Date: 2022-10-05 09:55 Normal [facility] AMYLASEon 10-04-2022 Amylase [Catalytic activity/Vol] 124 U/L Critically high 25-115 [facility] Comment on above: Performed By: #### L IPACOLE, CMP #### [facility] Laboratory [address] [place] [address] Dr. Ayden Cam CBC AUTO DIFFon 10-04-2022 BASO # 0.0 103/ul Normal 0.0-0.1 [facility] Comment on above: Performed By: #### L IPA #### [facility] Laboratory [address] [address] [address] Ayden Cam Basophils/100 WBC (Bld) 0.3 % Normal 0.2-2.0 [facility] Comment on above: Performed By: #### L IPA #### [facility] Laboratory [address] [place] [address] Dr. Ayden Cam EO # 0.2 103/ul Normal 0.0-0.7 [facility] Comment on above: Performed By: #### L IPA #### [facility] Laboratory [address] [address] [address] Ayden Cam Eosinophils/100 WBC (Bld) 2.9 % Normal 0.9-7.0 [facility] Comment on above: Performed By: #### L IPA #### [facility] Laboratory [address] [place] [address] Dr. Ayden Cam Erythrocyte distribution width (RBC) [Ratio] 12.3 % Normal 11.0-15.0 [facility] Comment on above: Performed By: #### L IPA #### [facility] Laboratory [address] [place] [address] Dr. Ayden Cam Hematocrit (Bld) [Volume fraction] 42.0 % Normal 36.0-48.0 [facility] Comment on above: Performed By: #### L IPA #### [facility] Laboratory [address] [place] [address] Dr. Ayden Cam Hemoglobin (Bld) [Mass/Vol] 14.3 g/dL Normal 12.0-16.0 [facility] Comment on above: Performed By: #### L IPA #### [facility] Laboratory [address] [place] [address] Dr. Ayden Cam IG # 0.02 10e3/ul Normal 0.00-0.03 [facility] Comment on above: Performed By: #### L IPA #### [facility] Laboratory [address] [place] [address] Dr. Ayden Cam IG % 0.3 % Normal 0.0-0.5 [facility] Comment on above: Performed By: #### L IPA #### [facility] Laboratory [address] [place] [address] Dr. Ayden Cam LYMPH # 1.7 103/ul Normal 1.2-3.8 [facility] Comment on above: Performed By: #### L IPA #### [facility] Laboratory [address] [place] [address] Dr. Ayden Cam Lymphocytes/100 WBC (Bld) 22.5 % Normal 20.5-60.0 [facility] Comment on above: Performed By: #### L IPA #### [facility] Laboratory [address] [place] [address] Dr. Ayden Cam MANUAL DIFF REQ NO Normal [facility] Comment on above: Performed By: #### L IPA #### [facility] Laboratory [address] [place] [address] Dr. Ayden Cam MCH (RBC) [Entitic mass] 30.1 pg Normal 26.7-34.0 [facility] Comment on above: Performed By: #### L IPA #### [facility] Laboratory [address] [place] [address] Dr. Ayden Cam MCHC (RBC) [Mass/Vol] 34.0 g/dL Normal 29.9-35.2 [facility] Comment on above: Performed By: #### L IPA #### [facility] Laboratory [address] [place] [address] Dr. Ayden Cam MCV (RBC) [Entitic vol] 88.4 fL Normal 81.0-99.0 [facility] Comment on above: Performed By: #### L IPA #### [facility] Laboratory [address] [place] [address] Dr. Ayden Cam MONO # 0.5 103/ul Normal 0.3-0.8 [facility] Comment on above: Performed By: #### L IPA #### [facility] Laboratory [address] [place] [address] Dr. Ayden Cam Monocytes/100 WBC (Bld) 6.0 % Normal 1.7-12.0 [facility] Comment on above: Performed By: #### L IPA #### [facility] Laboratory [address] [place] [address] Dr. Ayden Cam NEUT # 5.2 103/ul Normal 1.4-6.5 [facility] Comment on above: Performed By: #### L IPA #### [facility] Laboratory [address] [place] [address] Dr. Ayden Cam Neutrophils/100 WBC (Bld) 68.0 % Normal 43.0-75.0 [facility] Comment on above: Performed By: #### L IPA #### [facility] Laboratory [address] [place] [address] Dr. Ayden Cam Platelet mean volume (Bld) [Entitic vol] 9.6 fL Normal 9.5-13.5 [facility] Comment on above: Performed By: #### L IPA #### [facility] Laboratory [address] [place] [address] Dr. Ayden Cam PLT 183 103/ul Normal 150-450 [facility] Comment on above: Performed By: #### L IPA #### [facility] Laboratory [address] [place] [address] Dr. Ayden Cam RBC 4.75 106/ul Normal 4.20-5.40 [facility] Comment on above: Performed By: #### L IPA #### [facility] Laboratory [address] [place] [address] Dr. Ayden Cam WBC 7.6 103/ul Normal 4.0-11.0 [facility] Comment on above: Performed By: #### L IPA #### [facility] Laboratory [address] [place] [address] Dr. Ayden Cam Covid-19 PCR ([facility])on SARS-CoV-2 (COVID-19) RNA LOWELL+probe Ql (Unsp spec) Not detected Normal NOT DETECTED [facility] Comment on above: Result Comment: When diagnostic [...] for this test is supported by the [place] [employer] and Human Service's declaration that [...] used). Performed By: #### L IPA #### [facility] Laboratory [address] [place] [address] Dr. Ayden Cam ER URINE PROFILEon 3 Bilirubin Ql (U) Negative Normal NEGATIVE [facility] Comment on above: Performed By: #### L ACT #### [facility] Laboratory [address] [place] [address] Dr. Ayden Cam Clarity (U) CLEAR Normal CLEAR [facility] Comment on above: Performed By: #### L ACT #### [facility] Laboratory [address] [place] [address] Dr. Ayden Cam Color (U) LT. YELLOW Normal YELLOW [facility] Comment on above: Performed By: #### L ACT #### [facility] Laboratory [address] [place] [address] Dr. Ayden SANTANA A micrscopic examination will be performed if indicated. Normal [facility] Comment on above: Performed By: #### L ACT #### [facility] Laboratory [address] [place] [address] Dr. Ayden Cam Glucose Ql (U) Negative Normal NEGATIVE [facility] Comment on above: Performed By: #### L ACT #### [facility] Laboratory [address] [place] [address] Dr. Ayden Cam Hemoglobin Ql (U) Negative Normal NEGATIVE [facility] Comment on above: Performed By: #### L ACT #### [facility] Laboratory [address] [place] [address] Dr. Ayden Cam Ketones Ql (U) Negative Normal NEGATIVE [facility] Comment on above: Performed By: #### L ACT #### [facility] Laboratory [address] [place] [address] Dr. Ayden Cam LEUKOCYTES Negative Normal NEGATIVE [facility] Comment on above: Performed By: #### L ACT #### [facility] Laboratory [address] [place] [address] Dr. Ayden Cam Nitrite Ql (U) Negative Normal NEGATIVE [facility] Comment on above: Performed By: #### L ACT #### [facility] Laboratory [address] [place] [address] Dr. Ayden Cam pH (U) 8.5 [pH] Normal 5-9 [facility] Comment on above: Performed By: #### L ACT #### [facility] Laboratory [address] [place] [address] Dr. Ayden Cam SPEC GRAVITY 1.015 Normal 1.005-<=1.025 [facility] Comment on above: Performed By: #### L ACT #### [facility] Laboratory [address] [place] [address] Dr. Ayden Cam UA PROTEIN Negative Normal NEGATIVE/ TRACE [facility] Comment on above: Performed By: #### L ACT #### [facility] Laboratory [address] [place] [address] Dr. Ayden Cam UR MICRO IND NOT INDICATED Normal [facility] Comment on above: Performed By: #### L ACT #### [facility] Laboratory [address] [place] [address] Dr. Ayden Cam Urobilinogen Qn (U) 0.2 {Peggy'U}/dL Normal 0.2 - 1. 0 [facility] Comment on above: Performed By: #### L ACT #### [facility] Laboratory [address] [place] [address] Dr. Ayden Cam LACTATE/LACTIC ACIDon 2022 Lactate [Moles/Vol] 0.8 mmol/L Normal 0.4-1.9 [facility] Comment on above: Performed By: #### L ACT #### [facility] Laboratory [address] [place] [address] Dr. Ayden Cam LIPASEon 10-04-2022 Lipase [Catalytic activity/Vol] 170.0 U/L Normal 73.0-393.0 [facility] Comment on above: Performed By: #### L ACT #### [facility] Laboratory [address] [place] [address] Dr. Ayden Cam PROF 14(COMP METB)on 023 Albumin [Mass/Vol] 3.8 g/dL Normal 3.4-5.0 [facility] Comment on above: Performed By: #### L ACT #### [facility] Laboratory [address] [place] [address] Dr. Adyen Cam Albumin/Globulin [Mass ratio] 1.1 {ratio} Normal [facility] Comment on above: Performed By: #### L ACT #### [facility] Laboratory [address] [place] [address] Dr. Ayden Cam ALP [Catalytic activity/Vol] 101 U/L Normal 46-116 [facility] Comment on above: Performed By: #### L ACT #### [facility] [address] [place] [address] Dr. Ayden Cam ALT [Catalytic activity/Vol] 94 U/L Critically high 14-59 [facility] Comment on above: Performed By: #### L ACT #### [facility] Laboratory [address] [address] [address] Ayden Cam Anion gap [Moles/Vol] 11.1 mmol/L Normal Th e [facility] Comment on above: Performed By: #### L ACT #### [facility] [address] [address] [address] Ayden Cam AST [Catalytic activity/Vol] 59 U/L Critically high 15-37 [facility] Comment on above: Performed By: #### L ACT #### [facility] [address] [address] [address] Ayden Cam Bilirubin [Mass/Vol] 0.3 mg/dL Normal 0.2-1.0 [facility] Comment on above: Performed By: #### L ACT #### [facility] [address] [address] [address] Ayden Cam Calcium [Mass/Vol] 9.5 mg/dL Normal 8.5-10.1 [facility] Comment on above: Performed By: #### L ACT #### [facility] [address] [address] [address] Ayden Cam Chloride [Moles/Vol] 99 mmol/L Normal 98-107 [facility] Comment on above: Performed By: #### L ACT #### [facility] [facility] [address] [address] [address] Ayden Cam CO2 [Moles/Vol] 29.7 mmol/L Normal 21.0-32.0 [facility] Comment on above: Performed By: #### L ACT #### [facility] [address] [address] [address] Ayden Cam Creatinine [Mass/Vol] 0.61 mg/dL Normal 0.55-1.02 [facility] Comment on above: Performed By: #### L ACT #### [facility] [address] [address] [address] Ayden Cam EGFR-AF MARTINIQUAIS >60 Normal >=60 [facility] Comment on above: Performed By: #### L ACT #### [facility] [address] [address] [address] Ayden Cam EGFR-NON AF MARTINIQUAIS >60 Normal >=60 [facility] Comment on above: Performed By: #### L ACT #### [facility] [address] [address] [address] Ayden Cam Globulin (S) [Mass/Vol] 3.4 g/dL Normal [facility] Comment on above: Performed By: #### L ACT #### [facility] [address] [address] [address] Ayden Cam Glucose [Mass/Vol] 111 mg/dL Critically high 74-106 [facility] Comment on above: Performed By: #### L ACT #### [facility] [address] [address] [address] Ayden Cam Potassium [Moles/Vol] 3.8 mmol/L Normal 3.5-5.1 [facility] Comment on above: Performed By: #### L ACT #### [facility] [address] [address] [address] Ayden Cam Protein [Mass/Vol] 7.2 g/dL Normal 6.4-8.2 [facility] Comment on above: Performed By: #### L ACT #### [facility] [address] [address] [address] Ayden Cam Sodium [Moles/Vol] 136 mmol/L Normal 136-145 [facility] Comment on above: Performed By: #### L ACT #### [facility] [address] [address] [address] Ayden Cam Urea nitrogen [Mass/Vol] 23.0 mg/dL Critically high 7.0-18.0 [facility] Comment on above: Performed By: #### L ACT #### [facility] [address] [address] [address] Ayden Cam Urea nitrogen/Creatinine [Mass ratio] 37.7 mg/mg Normal [facility] Comment on above: Performed By: #### L ACT #### [facility] [address] [address] [address] Ayden Cam TROPONIN, HIGH SENSITIVITYon 10-04-2022 HSTROP 8.9 pg/mL Normal 4.0-51.3 [facility] Comment on above: Result Comment: CUT- OFF POINTS HAVE BEEN ESTABLISHED BASED ON THE FOURTH UNIVERSAL DEFINITIONS OF MYOCARDIAL INFARCTION. THE UPPER REFERENCE LIMIT (URL) OF TROPONIN, DEFINED THE 99TH PERCENTILE OF cTnI DISTRIBUTION IN A REFERENCE POPULATION, HAS BEEN CONFIRMED THE DECISION THRESHOLD FOR NH DIAGNOSIS. Performed By: #### L ACT #### [facility] [address] [place] [address] Dr. Ayden Cam LIPID PROFILEon 09-19-2022 CHOL-HDL RATIO NORM SEE BELOW Normal [facility] Comment on above: Result Comment: 3.3 - 4.4 LOW RISK 4.4 - 7.1 AVERAGE RISK 7.1 - 11.0 MODERATE RISK >11.0 HIGH RISK Performed By: #### L IPA #### [facility] [address] [place] [address] Dr. Ayden Cam Cholesterol [Mass/Vol] 116 mg/dL Normal <=200 [facility] Comment on above: Performed By: #### L IPA #### [facility] [address] [place] [address] Dr. Ayden Cam Cholesterol in HDL [Mass/Vol] 59 mg/dL Normal 40-60 [facility] Comment on above: Performed By: #### L IPA #### [facility] [address] [address] [address] Ayden Cam Cholesterol in LDL [Mass/Vol] 34.0 mg/dL Normal [facility] Comment on above: Performed By: #### L IPA #### [facility] [address] [address] [address] Ayden Cam Cholesterol.total/Cho lesterol in HDL [Mass ratio] 2.0 {ratio} Normal [facility] Comment on above: Performed By: #### L IPA #### [facility] [address] [place] [address] Dr. Ayden Cam HDL NORMAL > or = 60 mg/dl - LO W CARDIOVASCULAR RISK <40 mg/dl - HIGH CARDIOVASCULAR RISK Normal [facility] Comment on above: Performed By: #### L IPA #### [facility] [address] [address] [address] Ayden Cam LDL CALC NORMAL SEE BELOW Normal [facility] Comment on above: Result Comment: <100 mg/dl OPTIMAL 100 - 129 mg/dl NEAR OR ABOVE OPTIMAL 130 - 159 mg/dl BORDERLINE HIGH 160 - 189 mg/dl HIGH >190 mg/dl VERY HIGH Performed By: #### L IPA #### [facility] [address] [address] [address] Ayden Cam Triglyceride [Mass/Vol] 115 mg/dL Normal <=150 [facility] Comment on above: Performed By: #### L IPA #### [facility] [address] [place] [address] Dr. Ayden Cam VLDL CALC 23.0 mg/dL Normal [facility] Comment on above: Performed By: #### L IPA #### [facility] [address] [address] [address] Ayden Cam VITAMIN D 25 OHon 09-19-2022 VIT D 25-OH 89.3 ng/mL Normal [facility] Comment on above: Performed By: #### V ITAD #### [facility] [address] [address] [address] Ayden Cam VIT D RANGES SEE BELOW Normal [facility] Comment on above: Result Comment: <20 ng/mL Vit D deficient 20 - <30 ng/mL Vit D insufficient 30 - 100 ng/mL Vit D sufficient >100 ng/mL Potential Toxicity Performed By: #### V ITAD #### [facility] [address] [place] [address] Dr. Ayden Cam Office Visit (Cardiology)on 08-15-2022 Follow-up visit Diagnoses/Problems Assessed Atherosclerosis of coronary artery of [place] heart without angina pectoris (414.01) (I25.10) History of coronary artery bypass graft (V45.81) (Z95.1) Ischemic cardiomyopathy (414.8) (I25.5) Hyperlipidemia (272.4) (E78.5) Essential hypertension, benign (401.1) (I10) Never a smoker Overweight with body mass index (BMI) of 26 to 26.9 in adult (278.02,V85.22) (E66.3,Z68.26) Paroxysmal SVT (supraventricular tachycardia) (427.0) (I47.1) Orders Atherosclerosis of coronary artery of [place] heart without angina pectoris, Essential hypertension, benign, Hyperlipidemia Basic Metabolic Panel; Status:Active - Retrospective Authorization; Requested for:[id number]; Lipid Panel; Status:Active - Retrospective Authorization; Requested for:[id number]; Overweight with body mass index (BMI) of 26 to 26.9 in adult Healthy Weight Tips; Status:Complete - Retrospective Authorization; Done: [id number] Some eating tips that can help you lose weight.; Status:Complete - Retrospective Authorization; Done: [id number] SocHx: Never a smoker Tobacco Use Screening; Status:Complete; Done: [id number] Patient Instructions Please bring all medicines, vitamins, [...] She has a history of prior inferior NH, prior PCI with subsequent three-vessel CABG and [...] CHEST PAIN.CALL 911 IF PAIN PERSISTS. Nyamyc [id number] UNIT/GM External Powderapply topically to affected area [...] no s (more content not included)... Normal [facility] Tobacco Screening.on Adult depression screening assessment No [facility] 250 DO Work Phone: Fall risk assessment a) No falls within the last year [facility] [address] 250 DO Work Phone: Tobacco use status CP b) No [facility] 250 DO Work Phone: MRI Ankle w/o [...] by Wilder Arango on 08/01/2022 1102 Normal [facility] [employer] Tobacco Screening.on Tobacco use status CPH[facility] b) No [facility] 250 DO Work Phone: Vital Signs Date Time Vital Sign Value Performing Clinician Facility 04-10-2024 15:08-0400 Blood Pressure Location JENNIFER MARTINO [facility] 04-10-2024 15:08-0400 Diastolic blood pressure 80 mm[Hg] [place] [facility] 04-10-2024 15:08-0400 Heart rate 75 /min [place] [facility] 04-10-2024 15:08-0400 Respiratory rate 16 /min [place] [facility] 04-10-2024 15:08-0400 Systolic blood pressure 131 mm[Hg] JENNIFER MARTINO [facility] 08-14-2023 15:29-0500 Body height 161.3 cm Celso Garibay DO Work Phone: [facility] 08-14-2023 15:29-0500 Body mass index (BMI) [Ratio] 28.07 kg/m2 Celso Garibay DO Work Phone: [facility] 08-14-2023 15:29-0500 Body weight 73.03 kg Celso Garibay DO Work Phone: [facility] 08-14-2023 15:29-0500 Diastolic blood pressure 80 mm[Hg] Celso Garibay DO Work Phone: [facility] 08-14-2023 15:29-0500 Heart rate 56 /min Celso Garibay DO Work Phone: [facility] 08-14-2023 15:29-0500 Systolic blood pressure 138 mm[Hg] Celso Garibay DO Work Phone: [facility] 06-18-2023 15:15-0400 Diastolic blood pressure 78 mm[Hg] Gaby Novoag DO Work Phone: [facility] [employer] 06-18-2023 15:15-0400 Heart rate 70 /min Gaby Novoag DO Work Phone: [facility] [employer] 06-18-2023 15:15-0400 Respiratory rate 18 /min Gaby Novoag DO Work Phone: [facility] [employer] 06-18-2023 15:15-0400 SaO2% (BldA) [Mass fraction] 96 % Gaby Novoag DO Work Phone: [facility] [employer] 06-18-2023 15:15-0400 Systolic blood pressure 173 mm[Hg] Gaby Novoag DO Work Phone: [facility] [employer] 06-18-2023 14:36-0400 Body temperature 97 [degF] Gaby Novoag DO Work Phone: [facility] [employer] 06-18-2023 13:30-0400 Body height 160 cm Gaby Novoag DO Work Phone: [facility] [employer] 06-18-2023 13:30-0400 Body mass index (BMI) [Ratio] 27.03 kg/m2 Gaby Novoag DO Work Phone: [facility] [employer] 06-18-2023 13:30-0400 Body weight 69.22 kg Gaby Novoag DO Work Phone: [facility] [employer] 11-02-2022 15:02-0500 Diastolic blood pressure 84 mm[Hg] MD Ziggy Dejesus Work Phone: [facility] 11-02-2022 15:02-0500 Heart rate 78 /min MD Ziggy Dejesus Work Phone: [facility] 11-02-2022 15:02-0500 Respiratory rate 18 /min MD Ziggy Dejesus Work Phone: [facility] 11-02-2022 15:02-0500 SaO2% (BldA) [Mass fraction] 100 % MD Ziggy Dejesus Work Phone: [facility] 11-02-2022 15:02-0500 Systolic blood pressure 161 mm[Hg] MD Ziggy Dejesus Work Phone: [facility] 11-02-2022 13:20-0500 Body height 160.02 cm MD Ziggy Dejesus Work Phone: [facility] 11-02-2022 13:20-0500 Body temperature 98.2 [degF] MD Ziggy Dejesus Work Phone: [facility] 11-02-2022 13:20-0500 Body weight 60.78 kg MD Ziggy Dejesus Work Phone: [facility] 11-01-2022 13:26-0500 Diastolic blood pressure 61 mm[Hg] MD Ziggy Dejesus Work Phone: [facility] 11-01-2022 13:26-0500 Heart rate 59 /min MD Ziggy Dejesus Work Phone: [facility] 11-01-2022 13:26-0500 Respiratory rate 20 /min MD Ziggy Dejesus Work Phone: [facility] 11-01-2022 13:26-0500 SaO2% (BldA) [Mass fraction] 99 % MD Ziggy Dejesus Work Phone: [facility] 11-01-2022 13:26-0500 Systolic blood pressure 124 mm[Hg] MD Ziggy Dejesus Work Phone: [facility] 11-01-2022 10:53-0500 Body height 160.02 cm MD Ziggy Dejesus Work Phone: [facility] 11-01-2022 10:53-0500 Body temperature 97.7 [degF] MD Ziggy Dejesus Work Phone: [facility] 11-01-2022 10:53-0500 Body weight 61.68 kg MD Ziggy Hoy Work Phone: [facility] 10-24-2022 15:45-0500 Body height 159.38 cm Imad Asaad Other [facility] [employer] Other 10-24-2022 15:45-0500 Body mass index (BMI) [Ratio] 24.28 kg/m2 Imad Asaad Other [employer] [facility] [employer] Other 10-24-2022 15:45-0500 Body weight 61.69 kg Imad Asaad Other [facility] [employer] Other 10-24-2022 15:45-0500 Diastolic blood pressure 94 mm[Hg] Imad Asaad Other [facility] [employer] Other 10-24-2022 15:45-0500 Systolic blood pressure 133 mm[Hg] Imad Asaad Other [facility] [employer] Other 09-19-2022 00:00-0500 34 1 Ziggy M Hoy Work Phone: [facility] [employer] 250 DO Work Phone: Comment on above: [facility] 08-15-2022 15:23-0500 Body height 160.02 cm Ziggy M Hoy Work Phone: [facility] 250 DO Work Phone: 08-15-2022 15:23-0500 Body mass index (BMI) [Ratio] 26.22 kg/m2 Ziggy M Hoy Work Phone: [facility] 250 DO Work Phone: 08-15-2022 15:23-0500 Body surface area Derived from formula 1.7 m2 Ziggy M Hoy Work Phone: [facility] 250 DO Work Phone: 08-15-2022 15:23-0500 Body weight 67.13 kg Ziggy M Hoy Work Phone: [facility] 250 DO Work Phone: 08-15-2022 15:23-0500 Diastolic blood pressure 82 mm[Hg] Ziggy M Hoy Work Phone: [facility] 250 DO Work Phone: 08-15-2022 15:23-0500 Heart rate 80 /min Ziggy M Hoy Work Phone: [facility] DO Work Phone: 08-15-2022 15:23-0500 Systolic blood pressure 132 mm[Hg] Ziggy M Hoy Work Phone: [facility] 250 DO Work Phone: 06-02-2022 08:12-0400 Blood Pressure Location Santiago CARRILLO [facility] 06-02-2022 08:12-0400 Diastolic blood pressure 86 mm[Hg] Santiago CARRILLO [facility] 06-02-2022 08:12-0400 Heart rate 60 /min Santiago CARRILLO [facility] 06-02-2022 08:12-0400 Respiratory rate 16 /min Santiago CARRILLO [facility] 06-02-2022 08:12-0400 Systolic blood pressure 144 mm[Hg] Santiago CARRILLO [facility] 08-17-2021 09:47-0500 Body height 160.02 cm Ziggy M Hoy Work Phone: [facility] 250 DO Work Phone: 08-17-2021 09:47-0500 Body mass index (BMI) [Ratio] 25.01 kg/m2 Ziggy M Hoy Work Phone: [facility] 250 DO Work Phone: 08-17-2021 09:47-0500 Body surface area Derived from formula 1.67 m2 Ziggy M Hoy Work Phone: [facility] 250 DO Work Phone: 08-17-2021 09:47-0500 Body weight 64.05 kg Ziggy M Hoy Work Phone: [facility] DO Work Phone: 08-17-2021 09:47-0500 Diastolic blood pressure 86 mm[Hg] Ziggy M Hoy Work Phone: [facility] DO Work Phone: 08-17-2021 09:47-0500 Heart rate 72 /min Ziggy M Hoy Work Phone: [facility] DO Work Phone: 08-17-2021 09:47-0500 Systolic blood pressure 134 mm[Hg] Ziggy M Hoy Work Phone: [facility] DO Work Phone: Encounters Encounter Date Encounter Type Care Provider Facility Start: 04-10-2024 End: 04-10-2024 ambulatory PA-C JENNIFER MARTINO Facility:[facility] Start: 04-10-2024 End: 04-10-2024 Patient encounter procedure JENNIFER MARTINO [facility] Start: 03-11-2024 End: 03-11-2024 ambulatory PA-C JENNIFER MARTINO Facility:[facility] Start: 03-11-2024 End: 03-11-2024 Patient encounter procedure JENNIFER MARTINO [facility] Start: 03-07-2024 End: 03-07-2024 Evaluation and management of inpatient ASH[facility] Start: 03-06-2024 End: 03-07-2024 Evaluation and management of inpatient [facility] Start: 03-06-2024 End: 03-06-2024 Evaluation and management of inpatient [facility] Start: 02-29-2024 End: 02-29-2024 Evaluation and management of inpatient ZIGGY Cle[facility] Start: 02-27-2024 ambulatory [facility] Start: 02-27-2024 End: 02-27-2024 ambulatory [facility] Start: 01-17-2024 End: 01-17-2024 ambulatory STEPHANIE [facility] Start: 09-13-2023 End: 09-13-2023 ambulatory ALINA JAVIER Not Available Start: 08-14-2023 End: 08-14-2023 ambulatory [facility] Start: 08-14-2023 End: 08-14-2023 Office outpatient visit 15 minutes [facility] Work Phone: [facility] Comment on above: Atherosclerosis of c oronary artery of [place] heart without angina pectoris, unspecified vessel or lesion type; History of coronary artery bypass graft; Ischemic cardiomyopathy; Essential hypertension, benign Start: 06-18-2023 End: 06-18-2023 [facility] Start: 06-18-2023 End: 06-18-2023 Subsequent hospital visit by physician Gaby Tello DO Work Phone: [facility] Comment on above: Post-menopausal blee ding; Inclusion cyst Start: 05-24-2023 Rx Renewal Ziggy Dejesus Work Phone: [facility] 250 DO Work Phone: Start: 05-17-2023 Patient encounter procedure Ziggy Dejesus Work Phone: [facility] 250 DO Work Phone: Start: 05-15-[address] [facility] Start: 12-12-2022 End: 12-12-2022 ambulatory Imad Asaad Facility:[facility] Start: 12-12-2022 End: 12-12-2022 ambulatory MD Ziggy Dejesus Work Phone: [facility] Work Phone: Start: 12-12-2022 End: 12-12-2022 Patient encounter procedure MD Ziggy Dejesus Work Phone: [facility] Work Phone: Start: 11-20-2022 End: 11-20-2022 ambulatory Imad Asaad Other [facility] [employer] Other Start: 11-20-2022 Telephone encounter Imad Asaad [facility] Start: 11-10-2022 End: 11-10-2022 ambulatory Imad Asaad Facility:[facility] Start: 11-10-2022 End: 11-10-2022 Patient encounter procedure MD Ziggy Dejesus Work Phone: [facility] [place] Work Phone: Start: 11-02-2022 End: 11-02-2022 ambulatory Imad Asaad Facility:[facility] Start: 11-02-2022 End: 11-02-2022 Admission to same day surgery center MD Ziggy Dejesus Work Phone: [facility] Work Phone: Start: 11-02-2022 End: 11-02-2022 ambulatory MD Ziggy Dejesus Work Phone: [facility] Work Phone: Start: 11-01-2022 Telephone encounter Imad Asaad [facility] Start: 11-01-2022 End: 11-01-2022 ambulatory Imad Asaad Facility:[facility] Start: 11-01-2022 End: 11-01-2022 Admission to same day surgery center MD Ziggy Dejesus Work Phone: [facility] Work Phone: Start: 11-01-2022 End: 11-01-2022 ambulatory MD Ziggy Dejesus Work Phone: [facility] Work Phone: Start: 10-24-2022 End: 10-24-2022 ambulatory Imad Asaad Other [facility] [employer] Other Start: 10-24-2022 [facility] visit new patient Imad Asaad [facility] Start: 10-16-2022 End: 10-17-[address] ZIGGY DEJESUS Facility:[facility] Start: 10-09-2022 End: 10-10-[address] ZIGGY DEJESUS Facility:[facility] Start: 10-05-2022 Rx Renewal Ziggy Dejesus Work Phone: [facility] 250 DO Work Phone: Start: 10-04-2022 End: 10-06-[address] ZIGGY DEJESUS Facility:[facility] Start: 09-19-2022 End: 09-20-[address] DOCTOR PATEL Facility:[facility] Start: 08-15-2022 Office outpatient vi sit 15 minutes Ziggy Dejesus Work Phone: [facility] 250 DO Work Phone: Start: 08-15-2022 Patient encounter procedure Ziggy Dejesus Work Phone: [facility] 250 DO Work Phone: Start: 06-02-2022 End: 06-02-2022 Patient encounter procedure Santiago CARRILLO [facility] Start: 05-31-2022 Rx Renewal Ziggy Dejesus Work Phone: [facility] 250 DO Work Phone: Start: 02-07-2022 End: 02-07-2022 Patient encounter procedure Ziggy Dejesus MD Work Phone: [facility] Start: 02-07-2022 End: 02-07-2022 Subsequent hospital visit by physician Ziggy Dejesus MD [facility] Phone[facility] Comment on above: Women's annual routi ne gynecological examination Start: 11-21-2021 Rx Renewal Ziggy Tyree Seb Work Phone: [facility] 250 DO Work Phone: Start: 08-17-2021 Office outpatient vi sit 15 minutes Ziggy Tyree Seb Work Phone: [facility] 250 DO Work Phone: Start: 08-19-2019 End: 08-19-2019 Subsequent hospital visit by physician Ziggy CABEZAS [facility] Comment on above: Well female exam wit h routine gynecological exam Start: 08-29-2017 Ambulatory PROVIDER UNKNOWN Facili ty:[id number] Start: 08-27-2017 Ambulatory PROVIDER UNKNOWN Facili ty:[id number] Start: 08-27-2017 Ambulatory Facility:[id number] Procedures Date Procedure Procedure Detail Performing Clinician Start: 03-06-2024 Esophagoscopy flexible transoral ultrasound exam JENNIFER MARTINO Start: 08-14-2023 Alanine aminotransferase [Enzymatic activity/volume] in Serum or Plasma CELSO GARIBAY Start: 08-14-2023 Lipid panel CELSO GARIBAY Start: 08-09-2023 History of coronary artery bypass grafting History of coronary artery bypass graft Celso Garibay DO Work Phone: Start: 12-12-2022 Ultrasound elastography of liver MD Deacon Dejesus Work Phone: Start: 11-10-2022 Magnetic resonance cholangiopancreatography MD Ziggy Dejesus Work Phone: Start: 11-02-2022 Colonoscopy MD Ziggy Dejesus Work Phone: Start: 11-01-2022 Colonoscopy MD Ziggy Dejesus Work Phone: Start: 07-24-2022 Mammography Celso Garibay DO Work Phone: Start: 02-07-2022 Microscopic observation [Identifier] in Cervix by Cyto stain Gaby Tello DO Work Phone: Start: 11-01-2019 Excision of ganglion cyst Santiago CARRILLO Start: 08-19-2019 Microscopic observation [Identifier] in Cervix by Cyto stain Ziggy Dejesus MD Work Phone: Start: 12-03-2018 Cystoscopic removal of ureteric stent JENNIFER HADRYRY Appendectomy Ziggy M Hoy Work Phone: Appendectomy Santiagohilda CARRILLO Bypass of stomach Santiago GALVAN Cataract surgery Ziggy M H oy Work Phone: Cholecystectomy Ziggy M Ho y Work Phone: Coronary artery bypass graft Ziggy M Hoy Work Phone: Coronary artery bypa ss graft operation planned Santiagohilda CARRILLO Decompression of median nerve Ziggy M Hoy Work Phone: Esophagogastrostomy, antesternal or antethoracic Ziggy M Hoy Work Phone: History of coronary artery bypass grafting History of coronary artery bypass graft Ziggy M Hoy Work Phone: History of coronary artery bypass grafting History of coronary artery bypass graft Celso Garibay DO Work Phone: Kidney operation Ziggy M H oy Work Phone: Operation on nose Ziggy M Hoy Work Phone: Peripheral neuroplasty Dougl as M Hoy Work Phone: Repair of inguinal hernia Gentry CARRILLO Total colonoscopy Ziggy Dejesus Work Phone: Plan of Treatment Date Care Activity Detail Author Start: 02-07-2027 [facility] malignant [facility] Start: 02-07-2025 Screening for malignant neoplasm of cervix Pap smear [facility] Start: 08-19-2024 [facility] Start: 08-13-2024 End: 08-13-2024 Patient encounter procedure 08/13/2024 11:30 AM EST Office Visit [facility] [address] [place] [address] Celso Garibay DO [address] [place] [address] [facility] Start: 02-14-2024 Depression Screen Depression Screen [facility] Start: 02-12-2024 End: 08-14-2024 Alanine aminotransferase [Enzymatic activity/volume] in Serum or Plasma by With P-5'-P Alanine Aminotransferase Lab Routine History of coronary artery bypass graft Ischemic cardiomyopathy Expected: 02/12/2024 (Approximate), Expires: 08/14/2024 [facility] Work Phone: Comment on above: Expected: 02/12/2024 (Approximate), Expi res: 08/14/2024 Start: 02-12-2024 End: 08-14-2024 Aspartate aminotransferase [Enzymatic activity/volume] in Serum or Plasma by With P-5'-P Aspartate Aminotransferase Lab Routine Atherosclerosis of coronary artery of [place] heart without angina pectoris, unspecified vessel or lesion type Ischemic cardiomyopathy Expected: 02/12/2024 (Approximate), Expires: 08/14/2024 [facility] Work Phone: Comment on above: Expected: 02/12/2024 (Approximate), Expi res: 08/14/2024 Start: 02-12-2024 End: 08-14-2024 Lipid 1996 panel - Serum or Plasma Lipid Panel Lab Routine Atherosclerosis of coronary artery of [place] heart without angina pectoris, unspecified vessel or lesion type Expected: 02/12/2024 (Approximate), Expires: 08/14/2024 [facility] Service Area Work Phone: Comment on above: Expected: 02/12/2024 (Approximate), Expi res: 08/14/2024 Start: 08-14-2023 FUV, Provider: Celso Garibay, Status: Pen, Time: 3:00 PM FUV, Provider: Celso Garibay, Status: Julio, Time: 3:[address] [facility] 250 DO Work Phone: Start: 07-28-2023 Screening for malignant neoplasm of breast Breast cancer screen [facility] Start: 07-24-2023 Screening for malignant neoplasm of breast Mammogram [facility] Start: 07-03-2023 End: 07-03-2023 Patient encounter procedure 07/03/2023 4:45 PM EDT Office Visit [facility] [address] [place] [address] Gaby Chahal, DO [address] [place], [place] [id number] post-op BA 05/16 [facility] Comment on above: post-op BA 05/16 Start: 06-18-2023 End: 06-18-2023 Hysteroscopy bx endometrium&/polypc w/wo d&c DILATATION AND CURETTAGE HYSTEROSCOPY Post-menopausal bleeding Inclusion cyst 06/18/2023 2:01 PM EDT [facility] Start: 02-13-2023 End: 02-13-2023 Patient encounter procedure 02/13/2023 Office Visit Obstetrics and Gynecology Gbay Chahal, DO [address] [place], [place] [id number] [facility] Start: 12-12-2022 [facility] Start: 11-02-2022 [facility] Start: 11-01-2022 [facility] Start: 08-19-2022 Screening for malignant neoplasm of cervix Pap smear [facility] Start: 08-15-2022 FUV, Provider: Celso Garibay, Status: Pen, Time: 3:00 PM SATNAMV, Provider: Celso Garibay, Status: Pen, Time: 3:00 PM [facility] 250 DO Work Phone: Start: 08-03-2022 Lipid panel Lipids [facility] Start: 09-26-2021 COVID-19 Vaccine (4 - Pfizer series) COVID-19 Vaccine (4 - Pfizer series) [facility] Start: 06-01-2019 Influenza vaccination Flu vaccine (#1) [place] Start: 05-09-2018 Pneumococcal Vaccine: Pediatrics (0 to 5 Years) and At-Risk Patients (6 to 64 Years) (2 - PCV) Pneumococcal Vaccine: Pediatrics (0 to 5 Years) and At-Risk Patients (6 to 64 Years) (2 - PCV) [facility] Start: 2014 Breast cancer screen Breast cancer screen [place], [place] Start: 2014 Colon cancer screen colonoscopy Colon cancer screen colonoscopy [place] Start: 2014 Shingles Vaccine (1 of 2) Shingles Vaccine (1 of 2) [facility] Start: 08-26-2009 MMR Vaccines (1 of 1 - Standard series) MMR Vaccines (1 of 1 - Standard series) [facility] Start: 2009 Screening for malignant neoplasm of colon [facility] Start: 1999 Diabetes screen Diabetes screen [facility] Start: 1986 DTaP/Tdap/Td Vaccines (1 - Tdap) DTaP/Tdap/Td Vaccines (1 - Tdap) [facility] Start: 1985 Cervical cancer screen Cervical cancer screen [place], [place] Start: 1985 Screening for malignant neoplasm of cervix [facility] Start: 1983 DTaP/Tdap/Td vaccine (1 - Tdap) DTaP/Tdap/Td vaccine (1 - Tdap) [facility] Start: 1982 Diabetes mellitus screening Diabetes Screening [facility] Start: 1982 Hepatitis C screening [facility] Start: 1979 HIV screen HIV screen [place], [place] Start: 1979 HIV screening HIV screen [facility] Start: 1976 Depression Screen Depression Screen [facility] Start: 1975 DTaP/Tdap/Td vaccine (1 - Tdap) DTaP/Tdap/Td vaccine (1 - Tdap) [place] Start: 1974 Lipid panel Lipids [facility] Start: 1974 Lipid screen Lipid screen [place] Start: 1964 Hepatitis B vaccine (1 of 3 - 3-dose series) Hepatitis B vaccine (1 of 3 - 3-dose series) [facility] Start: 1964 Hepatitis B Vaccines (1 of 3 - 3-dose series) Hepatitis B Vaccines (1 of 3 - 3-dose series) [facility] Start: 1964 Hepatitis C screen Hepatitis C screen [place] Start: 1964 HIV screening HIV Screening [facility] Start: 1964 Lipid panel Lipid Panel [facility] Start: 1964 Screening for malignant neoplasm of colon [facility] Start: 1964 Yearly Adult Physical Yearly Adult Physical [facility] Actin smooth muscle IgG Ab [Units/volume] in Serum [facility] Alpha 1 antitrypsin [Mass/volume] in Serum or Plasma [facility] Alpha 1 antitrypsin phenotyping [Identifier] in Serum or Plasma by Immunofixation [facility] Ceruloplasmin [Mass/volume] in Serum or Plasma [facility] End: 08-19-2019 Cytopathology procedure, preparation of smear, genital source PAP SMEAR Lab Routine Well female exam with routine gynecological exam 1 Occurrences starting 08/19/2019 until 08/19/2019 [place] Comment on above: 1 Occurrences starting 08/19/2019 until 08/19/2019 End: 02-07-2022 Cytopathology procedure, preparation of smear, genital source PAP SMEAR Lab Routine Women's annual routine gynecological examination 1 Occurrences starting 02/07/2022 until 02/07/2022 TE2 Work Phone: Comment on above: 1 Occurrences starting 02/07/2022 until 02/07/2022 Hepatitis A virus Ab [Presence] in Serum by Immunoassay [facility] Hepatitis B core ant ibody measurement [facility] Hepatitis B virus khanna rface Ab [Presence] in Serum [facility] Hepatitis B virus khanna rface Ag [Presence] in Serum or Plasma by Immunoassay [facility] Hepatitis C virus Ig G Ab [Presence] in Serum or Plasma by Immunoassay [facility] Homogenous nuclear A b pattern [Titer] in Serum [facility] IgG [Mass/volume] in Serum or Plasma [facility] End: 06-18-2023 INITIATE PACU OXYGEN THERAPY PROTOCOL Initiate PACU Oxygen Therapy Protocol Respiratory Care Routine Continuous until discontinued starting 06/18/2023 [employer] Comment on above: Continuous until discontinued starting 0 06/18/2023 Lipoprotein a [Moles/volume] in Serum or Plasma [facility] Mitochondria M2 IgG Ab [Units/volume] in Serum [facility] Nuclear Ab [Titer] i n Serum [facility] Oxygen therapy [Mini mum Data Set] Initiate Oxygen Therapy Protocol Respiratory Care Routine As Needed until discontinued starting 06/18/2023 [employer] Comment on above: As Needed until discontinued starting Oxygen therapy [Mini mum Data Set] Initiate Oxygen Therapy Protocol Respiratory Care Routine As Needed until discontinued starting 06/18/2023 [employer] Comment on above: As Needed until discontinued starting Patient Education Hemorrhoids (DC) [facility] Work Phone: End: 06-18-2023 , urine POCT , urine POCT Point of Care Testing Routine One Time for 1 Occurrences starting 06/18/2023 until 06/18/2023 [employer] Comment on above: One Time for 1 Occurrences starting 06/01 until 06/18/2023 Surgical Pathology Surgical Path ology Lab Routine Post-menopausal bleeding Inclusion cyst Release Upon Ordering for 1 Occurrences starting 06/18/2023 [employer] Comment on above: Release Upon Ordering for 1 Occurrences starting 06/18/2023 [facility] Immunizations Immunization Date Immunization Notes Care Provider Sudhakar ponce 06-16-2022 influenza, injectabl e, quadrivalent, preservative free Ziggy M Hoy Work Phone: [facility] DO Work Phone: 06-16-2022 zoster vaccine recombinant Ziggy M Hoy Work Phone: [facility] 250 DO Work Phone: 08-01-2021 Pfizer-BioNTech COVI D-19 Vacc 30 MCG/0.3ML Intramuscular Suspension Ziggy M Hoy Work Phone: [facility] 250 DO Work Phone: 06-30-2021 influenza virus vacc ine, unspecified formulation Ziggy M Hoy Work Phone: [facility] 250 DO Work Phone: 06-03-2021 Influenza, injectabl e, Madin [place] Canine Kidney, preservative free, quadrivalent Ziggy M Hoy Work Phone: [facility] 250 DO Work Phone: 01-29-2021 Pfizer-BioNTech COVI D-19 Vacc 30 MCG/0.3ML Intramuscular Suspension Ziggy M Hoy Work Phone: [facility] 250 DO Work Phone: 01-08-2021 Pfizer-BioNTech COVI D-19 Vacc 30 MCG/0.3ML Intramuscular Suspension Zigyg M Hoy Work Phone: [facility] 250 DO Work Phone: 2020 influenza, injectabl e, quadrivalent, preservative free Ziggy M Hoy Work Phone: [facility] 250 DO Work Phone: 07-23-2018 influenza, injectabl e, quadrivalent, preservative free Ziggy M Hoy Work Phone: [facility] 250 DO Work Phone: 07-26-2017 Influenza, injectabl e, Madin [place] Canine Kidney, preservative free, quadrivalent Ziggy M Hoy Work Phone: [facility] 250 DO Work Phone: 05-09-2017 pneumococcal polysaccharide vaccine, 23 valent Ziggy M Hoy Work Phone: [facility] 250 DO Work Phone: 07-03-2015 influenza, seasonal, injectable, preservative free Ziggy M Hoy Work Phone: [facility] 250 DO Work Phone: 06-15-2014 influenza, seasonal, injectable Ziggy M Hoy Work Phone: [facility] DO Work Phone: 07-29-2009 novel influenza-H1N1 -09, preservative-free, injectable Ziggy M Hoy Work Phone: [facility] 250 DO Work Phone: Payers Date Payer Category Payer Self-pay [id number] [phone] [id number] 2022 Unknown 2019 Unknown BC [employer] BC BS [employer] [facility] xxxxxxxxxxxxxxx 2019-Present [address] [place] [address] xxxxxxxxxxxxxxx [id number] 1964 Unknown [id number] 1964 Unknown [id number] 2.16.840.1.878315.3.579.2.593 1964 Unknown [id number] 2.16.840.1.746510.3.579.2.593 1964 Unknown [id number] 2.16.840.1.927645.3.579.2.593 1964 Unknown [id number] 2.16.840.1.474772.3.579.2.593 1964 Unknown [id number] 2.16.840.1.111016.3.579.2.173 1964 Unknown [id number] 2.16.840.1.795671.3.579.2.175 1964 Unknown [id number] 2.16.840.1.343150.3.579.2.124 4 1964 Unknown [id number] 2.16.840.1.237801.3.579.2.125 9 1964 Unknown [id number] 2.16.840.1.721696.3.579.2.128 6 1964 Unknown [id number] 2.16.840.1.150325.3.579.2.128 6 1964 Unknown [id number] 2.16.840.1.994381.3.579.2.128 6 1964 Unknown [id number] 2.16.840.1.361611.3.579.2.128 6 1964 Unknown [id number] 2.16.840.1.433840.3.579.2.128 6 1964 Unknown [id number] 2.16.840.1.920451.3.579.2.128 6 1964 Unknown [id number] 2.16.840.1.378102.3.579.2.128 6 1964 Unknown [id number] 2.16.840.1.617022.3.579.2.727 1964 Unknown [id number] 2.16.840.1.349941.3.579.2.727 1959 Unknown [id number] 1959 Unknown [id number] Unknown [id number] 2.16.840.1.562150.3.579.2.531 Unknown [id number] 2.16.840.1.829659.3.579.2.531 Unknown [id number] 2.16.840.1.864183.3.579.2.531 Unknown [id number] 2.16.840.1.288674.3.579.2.531 Social History Date Type Detail Facility Start: 08-19-2019 End: 04-10-2024 Tobacco smoking status NHIS Never smoker [place] Start: 08-19-2019 End: 06-18-2023 Alcohol intake Ex-drinker (finding) [place], [place] Start: 1965 Sex Assigned At Not on file [place] Start: 02-13-2023 End: 06-18-2023 No alcohol use No alcohol use [facility] [employer] DO Work Phone: Start: 08-19-2019 End: 08-14-2023 Tobacco use and exposure Smokeless tobacco non-user [facility] Work Phone: Start: 02-13-2023 End: 06-18-2023 Sex Assigned At Female [facility] Start: 1965 Sex Assigned At Female F [facility] Patient Health Questionnaire 9 item (PHQ-9) total score [Reported] 0 [facility] Start: 08-14-2023 Alcohol intake Lifetime non-drinker (finding) [facility] Work Phone: Start: 08-04-2023 End: 08-14-2023 Exposure to SARS-CoV-2 (event) Not sure [facility] NEGATED: Highlighted row Denies Caffeine use Denies Caffeine use [facility] [employer] 250 DO Work Phone: Medical Equipment Procedure [...] /State Functional Status Date Assessment Result Facility 04-10-2024 Functional Status N/A [facility] 06-02-2022 Functional Status N/A [facility] Clinical Notes 06-02-2022 to 04-10-2024 Celso Garibay DO - 08/14/2023 3:00 PM ESTPatient InstructionsDischarge Debbie Pro RN - 06/06/2023 11:34 AM EDT Note Date & Type Note Facility 04-10-2024 Hospital Discharge instructions Patient Education 04/10/2024 16:08:23 Kidney Stones, Rpps-ct-Yoih Kidney Stones Kidney stones are rock-like masses [...] Follow these instructions at home: Medicines Take acol-spd-slrksys and prescription medicines only as told by [...] have with your health care provider. Document Revised: 05/22/2022 Document Reviewed: 05/22/2022 [employer] Patient Education 2022 j-Grab. Follow Up Care 03/10/2024 08:31:33 With:SALENA REDDY, JENNIFER López, URL Address: [address] [place] [address] When:3 months [facility] 04-10-2024 Note Patient Education Urology Kidney Stones Kidney stones are rock-like masses that form inside of the kidneys. Kidneys are organs that make pee (urine). A kidney stone may move into other parts of the urinary tract, including: ? The tubes that connect the kidneys to the bladder (ureters). ? The bladder. ? The tube that carries urine out of the body (urethra). Kidney stones can cause very bad pain and can block the flow of pee. The stone usually leaves your body (passes) through your pee. You may need to have a doctor take out the stone. What are the causes? Kidney stones may be caused by: ? A condition in which certain glands make too much parathyroid hormone (primary hyperparathyroidism). ? A buildup of a type of crystals in the bladder made of a chemical called uric acid. The body makes uric acid when you eat certain foods. ? Narrowing (stricture) of one or both of the ureters. ? A kidney blockage that you were born with. ? Past surgery on the kidney or the ureters, such as gastric bypass surgery. What increases the risk? You are more likely to develop this condition if: ? You have had a kidney stone in the past. ? You have a family history of kidney stones. ? You do not drink enough water. ? You eat a diet that is high in protein, salt (sodium), or sugar. ? You are overweight or very overweight (obese). What are the signs or symptoms? Symptoms of a kidney stone may include: ? Pain in the side of the belly, right below the ribs (flank pain). Pain usually spreads (radiates) to the groin. ? Needing to pee often or right away (urgently). ? Pain when going pee (urinating). ? Blood in your pee (hematuria). ? Feeling like you may vomit (nauseous). ? Vomiting. ? Fever and chills. How is this treated? Treatment depends on the size, location, and makeup of the kidney stones. The stones will often pass out of the body through peeing. You may need to: ? Drink more fluid to help pass the stone. In some cases, you may be given fluids through an IV tube put into one of your veins at the hospital. ? Take medicine for pain. ? Make changes in your diet to help keep kidney stones from coming back. Sometimes, medical procedures are needed to remove a kidney stone. This may involve: ? A procedure to break up kidney stones using a beam of light (laser) or shock waves. ? Surgery to remove the kidney stones. Follow these instructions at home: Medicines ? Take tgfs-gig-rjzdiox and prescription medicines only as told by your doctor. ? Ask your doctor if the medicine prescribed to you requires you to avoid driving or using heavy machinery. Eating and drinking ? Drink enough fluid to keep your pee pale yellow. You may be told to drink at least 8?10 glasses of water each day. This will help you pass the stone. ? If told by your doctor, change your diet. This may include: ? Limiting how much salt you eat. ? Eating more fruits and vegetables. ? Limiting how much meat, poultry, fish, and eggs you eat. ? Follow instructions from your doctor about eating or drinking restrictions. General instructions ? Collect pee samples as told by your doctor. You may need to collect a pee sample: ? 24 hours after a stone comes out. ? 8?12 weeks after a stone comes out, and every 6?12 months after that. ? Strain your pee every time you pee (urinate), for as long as told. Use the strainer that your doctor recommends. ? Do not throw out the stone. Keep it so that it can be tested by your doctor. ? Keep all follow-up visits as told by your doctor. This is important. You may need follow-up tests. How is this prevented? To prevent another kidney stone: ? Drink enough fluid to keep your pee pale yellow. This is the best way to prevent kidney stones. ? Eat healthy foods. ? Avoid certain foods as told by your doctor. You may be told to eat less protein. ? Stay at a healthy weight. Where to find more information ? National Kidney Foundation (NKF): www.kidney.org ? U[employer] Care Foundation (UCF): www.urologyhealth.org Contact a doctor if: ? You have pain that gets worse or does not get better with medicine. Get help right away if: ? You have a fever or chills. ? You get very bad pain. ? You get new pain in your belly (abdomen). ? You pass out (faint). ? You cannot pee. Summary ? Kidney stones are rock-like masses that form inside of the kidneys. ? Kidney stones can cause very bad pain and can block the flow of pee. ? The stones will often pass out of the body through peeing. ? Drink enough fluid to keep your pee pale yellow. This information is not intended to replace advice given to you by your health care provider. Make sure you discuss any questions you have with your health care provider. Document Revised: 05/22/2022 Document Reviewed: 05/22/2022 [employer] Patient Education ? [address] [facility] 02-27-2024 Note Attestation signed by Danielle Cesar MD at 02/27/2024 2:30 PM I personally saw and examined the patient on the same date of service as resident/fellow . I discussed the findings and therapeutic plan with the resident/fellow . I agree with the documentation, except for any edits/updates below. [facility] Gastroenterology New Patient Visit - History & Physical CHIEF COMPLAINT Chief Complaint Patient presents with New Patient Pancreatitis HISTORY OF PRESENT ILLNESS: Jose Alberto Saleem is a 58 y.o. female with PMHx of romina-en-y gastric bypass, cholecystectomy in for biliary colic, CABG, GERD, nutcracker syndrome, decreased saliva on cevimeline who presents for evaluation of acute recurrent pancreatitis. She reports first episode of acute pancreatitis was in Oct 2022. She had a second episode of abdominal pain and found to have second episode of acute pancreatitis in 12/2023. There has not been any clear etiology identified. She had MRCP that was negative for biliary ductal dilation or choledocholithiasis. She was previously on HCTZ, however was on this a long time prior to her first episode of pancreatitis. She gained weight in 2022 and reports 7 lb weight loss over the last 1 month. Denies diarrhea. She has had mildly elevated LFTs with ALT>AST, normal ALP and T bilirubin. She reports that she was evaluated for fatty liver disease when she was hoping to be a liver donor for her with cirrhosis and she reports that she was told her testing was normal. She is on cevimeline for dry mouth, but denies hx of autoimmune disease. Now, she continues to have intermittent abdominal pain. She has not been able to tolerate fatty foods without developing abdominal pain. She has been able to tolerate some fruit and protein shakes. She found certain foods trigger her epigastric pain and radiates to her back. Denies tobacco use. Last alcohol beverage 08/2023. Romina-en-y was 5 years ago. PREVIOUS LABS/IMAGING/ENDOSCOPY: MRCP 02/12/2024 HISTORY: Problem list: Patient Active Problem List Diagnosis Acute myocardial infarction (CMS/HCC) Angina pectoris (CMS/HCC) Atherosclerosis of coronary artery of [place] heart without angina pectoris Cellulitis of right foot due to methicillin-resistant Staphylococcus aureus Clotting disorder (CMS/HCC) Diabetes (CMS/HCC) Dry nose Essential hypertension, benign GERD (gastroesophageal reflux disease) Heart disease History of coronary artery bypass graft Hypercholesterolemia Ischemic cardiomyopathy Kidney disease Morbid obesity (CMS/HCC) Other chronic allergic conjunctivitis Chronic pancreatitis (CMS/HCC) Paroxysmal SVT (supraventricular tachycardia) (CMS/HCC) Peripheral edema S/P nasal septoplasty Ventricular septal defect Xerostomia Past Medical History: Past Medical History: Diagnosis Date Myocardial infarction (CMS/HCC) 10 yrs ago Pancreatitis Oct 2022 Past Surgical History: Past Surgical History: Procedure Laterality Date APPENDECTOMY BARIATRIC SURGERY 5 yrs ago CHOLECYSTECTOMY FAMILY HISTORY: Family History Problem Relation Name Age of Onset Hyperlipidemia Mother Gretta Hyperlipidemia Father Munoz Hyperlipidemia Brother [place] Heart attack Brother Ray SOCIAL HISTORY: Social History Tobacco Use Smoking status: Never Smokeless tobacco: Never Vaping Use Vaping Use: Never used Substance Use Topics Alcohol use: Never Drug use: Never ALLERGIES: Baclofen; Latex, natural rubber; Penicillins; Sulfa (sulfonamide antibiotics); Rosuvastatin; Sulfamethoxazole-trimethoprim; Fenofibrate; Fenofibrate micronized; Fluvastatin; Levofloxacin; Phenazopyridine; Simvastatin; Trimethoprim; and Tobramycin Current Medications: Current Outpatient Medications: aspirin 81 mg EC tablet, Take 81 mg by mouth 1 (one) time., Disp: , Rfl: atorvastatin (Lipitor) 20 mg tablet, Take 20 mg by mouth in the morning., Disp: , Rfl: cevimeline (Evoxac) 30 mg capsule, Take 30 mg by mouth three times daily., Disp: , Rfl: citalopram (CeleXA) 20 mg tablet, Take 20 mg by mouth in the morning., Disp: , Rfl: docusate sodium (Colace) 100 mg capsule, Take 100 mg by mouth in the morning and at bedtime., Disp: , Rfl: RABEprazole (Aciphex) 20 mg EC tablet, Take 20 mg by mouth in the morning and at bedtime., Disp: , Rfl: tamsulosin (Flomax) 0.4 mg 24 hr capsule, Take 0.4 mg by mouth in the morning., Disp: , Rfl: I reviewed and reconciled this patient's medication list today. The list included in this note is the most up to date list that I can attest to at this time based on the information that the patient has provided me and the electronic medical record. REVIEW OF SYSTEMS: See HPI, otherwise ROS as below CONSTITUTIONAL: negative HEENT: negative RESPI (more content not included)... [facility] 08-14-2023 History of Present illness Narrative Johnson Saleem is a 58 y.o. female Chief Complaint Annual Exam 58-year-old female returns for follow-up she is doing well from a cardiovascular standpoint with no hospitalizations, syncope, nitrate usage. She had a brief episode of pancreatitis that was suspected with minor lipase elevation earlier this year but potentially related to her previous history of Romina-en-Y gastric bypass. Unfortunately, she lost her this past year due to chronic recurring illness. She has a history of remote CABG, remote NH, remote PCI's before and after her CABG [...] Assessment/Plan 1. Atherosclerosis of coronary artery of [place] heart without angina pectoris, unspecified vessel or lesion type 2. History of coronary artery bypass graft 3. Ischemic cardiomyopathy 4. Essential hypertension, benign documented in this encounter [facility] Work Phone: 08-14-2023 Instructions Ej Braswell [...] of your visit. documented in this encounter [facility] Work Phone: 06-18-2023 Hospital Discharge instructions [...] call if excessive. Call the office at [phone] ([place]) [phone] ([place]) for an appointment in 2 weeks. documented in this encounter [facility] 06-06-2023 History of Present illness Narrative Patient [...] with Dr. Tripathi. documented in this encounter [facility] 11-20-2022 Evaluation note Encounter Date Diagnosis Assessment Notes Nov, Elevated liver function tests (ICD-10 - R94.5) [facility] [facility]24[facility]2023 Evaluation note* Encounter Date Diagnosis Assessment Notes Treatment Notes Treatment Clinical Notes Oct, Abdominal pain (ICD-10 - R10.9) Oct, Common bile duct dilatation (ICD-10 - K83.8) Oct, Elevated liver enzymes (ICD-10 - R74.8) Oct, Constipation (ICD-10 - K59.00) Colonoscopy Start Miralax daily after colonoscopy. Titration dosing discussed with patient. Oct, Colon cancer screening (ICD-10 - Z12.11) [facility] Other 01-04-2023 NotePROGRESS NOTE NOTE DATE: 10/04/2022 CHIEF COMPLAINT: Abdominal pain. HISTORY OF PRESENT ILLNESS: The patient is a 57-year-old female with a history of dyslipidemia and gastric bypass surgery, who has been having increasing abdominal pain and flank pain. She was seen yesterday at the [place] [facility] for epigastric and upper abdominal [...] DVT Prophylaxis: Lovenox. DISPOSITION: Home when medically stable.[facility]09-02-2022 Hospital Discharge instructions Patient Education 06/02/2022 08:51:52 Kidney Stones, Jege-dk-Zqph Kidney Stones Kidney stones are rock-like masses [...] Follow these instructions at home: Medicines Take cdlf-jvp-rwwczrk and prescription medicines only as told by [...] 03/05/2009 Document Revised: 02/03/2020 Document Reviewed: 02/03/2020 [employer] Patient Education 2020 j-Grab. Follow Up Care 05/27/2021 09:10:08 With:Santiago CARRILLO MD, URL Address: [address] [place] [address]- When: Unknown [facility] evaluation + Plan note Future Appointments Appointment Date:06/01/2023 08:00:00 AM Scheduled Provider:Santiago CARRILLO MD Location:[facility] Appointment Type:URO Office Visit [facility] evaluation + Plan note Future Appointments Appointment Date:04/10/2024 03:00:00 PM Scheduled Provider:JENNIFER MARTINO PA-C Location:[facility] Appointment Type:URO Office Visit [facility] evalgjllin note* Diagnosis Women's annual routine gynecological examination documented in this encounter [employer] Phone: evaluation noteNo assessment information available [facility] Work Phone: Evaluation noteNo InformationN[employer] Other Evaluation note* Diagnosis Post-menopausal bleeding Postmenopausal bleeding Inclusion cyst Sebaceous cyst [facility] Diagnosis Atherosclerosis of coronary artery of [place] heart without angina pectoris, unspecified vessel or lesion type 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 Ischemic cardiomyopathy Other specified forms of chronic ischemic heart disease Essential hypertension, benign documented in this encounter [facility] Work Phone: History and physical note Author Evert Bruno [facility] November 01, 2022 12:40pm Note Date/Time November 01, 2022 1 2:40pm [facility] [address] [place] [address] Gastroenterology H&P Signed Patient: Jose Alberto Saleem MR#: [id number] : 1965 Acct:[id number] Age/Sex: 57 / F Adm Date: 3 Loc: Room: Type: [facility] Attending Dr: Evert Bruno MD Copies to: [...] signed by Evert Bruno MD> 11/01/22 1240 [facility] Work Phone: History and physical note Author Evert Bruno [facility] November 02, 2022 2:14pm Note Date/Time November 02, 2022 2 :14pm [facility] [address] [place] [address] Gastroenterology H&P Signed Patient: Jose Alberto Saleem MR#: [id number] : 1965 Acct:[id number] Age/Sex: 57 / F Adm Date: 3 Loc: Room: Type: [facility] Attending Dr: Evert Bruno MD Copies to: [...] signed by Evert Bruno MD> 11/02/22 1414 [facility] Work Phone: History general Narrative - Reported* Type Description Date Medical History impaired fasting glucose Medical History heart disease, NH stents, CABG Medical History Hypertension Medical History hyperlipidemia Medical History 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 -Follow up with PCP. -Office number [phone]. [facility] Work Phone: Hospital Discharge instructions Additional Instructions [...] problems. -Follow up with PCP. -Office number [phone]. [facility] Work Phone: Hospital Discharge instructions No data available for this section [facility] progress note No data available for this section [facility] reason for referral (narrative)* Consultation (Routine) - Authorized Specialty Diagnoses / Procedures Referred By Manfred flynn Referred To Contact Cardiology Diagnoses Atherosclerosis of coronary artery of [place] heart without angina pectoris, unspecified vessel or lesion type History of coronary artery bypass graft Procedures Follow Up In Cardiology Celso Garibay DO [address] [facility], [address] [address] Celso Garibay DO [address] [facility], [address] [place] [address] Referral ID Status Reason Start Date Expiration Date V isits Requested Visits Authorized [id number] Authorized 08/14/2023 08/13/2024 1 1 [facility] Work Phone: Summary Purpose Family History No [...] FoundDocuments on File Type Date Recorded 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 Last ischemic evaluation 2017 revealed a normal myocardial perfusion stress test. * Patient has no current angina or heart failure hospitalizations. She is status post Romina-en-Y gastric bypass with substantial weight loss. * She remains on aspirin and atorvastatin only for her secondary preventive therapies given her adverse reactions to other medications, hypotension. * [place] [employer] is class I * Recommendations, [...] She has a history of prior inferior NH, prior PCI with subsequent three-vessel CABG and [...] She has a history of prior inferior NH, prior PCI with subsequent three-vessel CABG and [...] section and content) DATE CREATED AUTHOR 03/26/2018 [facility] Healthcare DATE CREATED AUTHOR AUTHOR'S ORGANIZ ATION 03/26/2018 [facility] DATE CREATED AUTHOR AUTHOR'S ORGANIZ ATION 08/02/2022 [facility] dical Specialist DATE CREATED AUTHOR AUTHOR'S ORGANIZ ATION 08/17/2022 [employer] DATE CREATED AUTHOR AUTHOR'S ORGANIZ ATION 10/17/2022 [facility] DATE CREATED AUTHOR AUTHOR'S ORGANIZ ATION 12/16/2022 [facility] DATE CREATED AUTHOR AUTHOR'S ORGANIZ ATION 06/23/2023 [facility] DATE CREATED AUTHOR AUTHOR'S ORGANIZ ATION 07/16/2023 [facility] DATE CREATED AUTHOR AUTHOR'S ORGANIZ ATION 08/16/2023 [facility] DATE CREATED AUTHOR AUTHOR'S ORGANIZ ATION 09/15/2023 [facility] dical Specialists EPIC DATE CREATED AUTHOR AUTHOR'S ORGANIZ ATION 01/19/2024 [facility] DATE CREATED AUTHOR AUTHOR'S ORGANIZ ATION 03/03/2024 [facility] DATE CREATED AUTHOR AUTHOR'S ORGANIZ ATION 03/07/2024 [facility] DATE CREATED AUTHOR AUTHOR'S ORGANIZ ATION 04/16/2024 [facility] Care Teams (unrecognized sec tion and content) Team Status: Active Member Role Status Dates Ziggy Dejesus MD Primary Care Provider Active Team Status: Inactive Member Role Status Dates Ziggy Dejesus MD Primary Care Provider Active Evert Bruno MD Attending Provider Active Director Education Relationship Specialty Start Date End Date Ziggy Dejesus MD [address] [place] [address] PCP - General Family Medicine 08/19/19 Director Education Relationship Specialty Start Date End Date Ziggy Dejesus MD [address] [place] [address] PCP - General Family Medicine 08/19/19 Director Education Relationship Specialty Start Date End Date Ziggy Dejesus MD [address] [place] [address] PCP - General 08/17/21 REASON FOR VISIT (unrecogniz ed section and content) Specialty Diagnoses / Procedures Referred By Manfred t Referred To Contact Diagnoses Post-menopausal bleeding Inclusion cyst Post-menopausal bleeding [N95.0] Inclusion cyst [L72.0] Procedures MO HYSTEROSCOPY BX ENDOMETRIUM&/POLYPC W/WO D&C MO DESTRUCTION BENIGN LESIONS UP TO 14 DILATATION AND CURETTAGE HYSTEROSCOPY-REMOVAL OF INCLUSION CYST Gaby Chahal, DO [address] [place] [address] [facility] [address] [place] [address] Referral ID Status Reason Start Date Expiration Date Visits Re quested Visits Authorized [id number] 1 1 Reason Comments Annual Exam 1yr [...] BE BASED ON THE PRIMARY CLINICAL RECORDS. [employer]. provides no warranty or guarantee of the accuracy or completeness of information in this document.
[2024-04-28 22:36] VITALS: BP 196/100; PULSE 62; TEMP 36.8; O2SAT 99; BMI 31.0
--- NOTE | 2024-04-28 23:12 | ECG_ITS ---
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
--- NOTE | 2024-04-28 23:13 | ED.ABDPAIN1 ---
HPI - Abdominal Pain General Chief Complaint: Abdominal Pain Stated Complaint: Flank Pain Time Seen by Provider: 04/28/24 23:04 Source: patient Mode of arrival: walk-in Limitations: no limitations History of Present Illness HPI narrative: 58-year-old female presents to the emergency department for abdominal pain. She is complaining of pain in the upper abdomen, particularly in the right upper quadrant. She is worried it might be her pancreas again, she has had pancreatitis. She has had previous cholecystectomy. She has been having this for a few days and she saw her family doctor today and he ordered blood work but the lab was closed so she can get it done. The pain got a bit worse so she came in here. It is moderate and continuous. No vomiting but she has been nauseous. No trauma or fever. Related Data Home Medications ?Medication ?Instructions ?Recorded ?Confirmed aspirin 81 mg tablet,delayed 81 mg PO BEDTIME 01/25/24 02/13/24 release atorvastatin 20 mg tablet 20 mg PO BEDTIME 01/25/24 02/13/24 cevimeline 30 mg capsule 30 mg PO TID 01/25/24 02/13/24 citalopram 40 mg tablet 40 mg PO DAILY 01/25/24 02/13/24 fluticasone propionate 50 2 spray intranasal BID 01/25/24 02/13/24 mcg/actuation nasal spray,suspension rabeprazole 20 mg tablet,delayed 20 mg PO BID 01/25/24 02/13/24 release tamsulosin 0.4 mg capsule 0.4 mg PO DAILY 01/25/24 02/13/24 tramadol 50 mg tablet 50 mg PO Q6H PRN pain 01/25/24 02/13/24 Previous Rx's ?Medication ?Instructions ?Recorded acetaminophen 300 mg-codeine 30 mg 1 tab PO Q6H PRN pain 2 days #7 04/29/24 tablet tabs Allergies Allergy/AdvReac Type Severity Reaction Status Date / Time latex Allergy Severe Anaphylaxis Verified 01/25/24 16:00 Penicillins Allergy Intermediate Hives Verified 01/25/24 16:00 Sulfa (Sulfonamide Allergy Intermediate Verified 01/25/24 16:00 Antibiotics) adhesive tape AdvReac Verified 01/25/24 16:00 Review of Systems ROS Narrative A ten point review of systems is negative except as noted above. [facility] Medical History (Updated 04/29/24 @ 01:30 by Gómez Madera MD) Acute pancreatitis ?K85.90 - Acute pancreatitis without necrosis or infection, unspecified (ICD-10) Acute abdomen ?R10.0 - Acute abdomen (ICD-10) Depression ?F32.A - Depression, unspecified (ICD-10) Cataract ?H26.9 - Unspecified cataract (ICD-10) Hyperlipidemia ?E78.5 - Hyperlipidemia, unspecified (ICD-10) History of prediabetes ?Z87.898 - Personal history of other specified conditions (ICD-10) Hypertension ?I10 - Essential (primary) hypertension (ICD-10) Surgical History (Updated 01/25/24 @ 15:50 by Tamanna Stoll) H/O rhinoplasty ?Z98.890 - Other specified postprocedural states (ICD-10) History of carpal tunnel release of both wrists ?Z98.890 - Other specified postprocedural states (ICD-10) H/O gastric bypass ?Z98.84 - Bariatric surgery status (ICD-10) H/O heart artery stent ?Z95.5 - Presence of coronary angioplasty implant and graft (ICD-10) History of quadruple bypass ?Z95.1 - Presence of aortocoronary bypass graft (ICD-10) Hx of appendectomy ?Z90.49 - Acquired absence of other specified parts of digestive tract (ICD-10) H/O hernia repair ?Z98.890 - Other specified postprocedural states (ICD-10) ?Z87.19 - Personal history of other diseases of the digestive system (ICD-10) Hx of cholecystectomy ?Z90.49 - Acquired absence of other specified parts of digestive tract (ICD-10) Family History (Updated 01/25/24 @ 15:51 by Tamanna Stoll) Mother Family history of CHF (congestive heart failure) Family history of hypertension Father Family history of CHF (congestive heart failure) Family history of COPD (chronic obstructive pulmonary disease) Brother Family history of CHF (congestive heart failure) Family history of stroke Family history of myocardial infarction Family history of hypertension Grandmother Family history of cancer Sister Family history of hypertension Social History (Updated 02/04/24 @ 20:01 by Carrie Guzman) Within the past year, how often did you have a drink containing alcohol: never Score interpretation: A score less than 3 is consistent with normal alcohol consumption. 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 Highest level of school completed/degree received: Bachelor's degree Are you now , , , , never or living with a partner: In a typical week, how many times do you talk on the telephone with family, friends, or neighbors: 3 or more times per week How often do you get together with friends or relatives: 3 or more times per week How often do you attend sabianism or advent services: 1-3 times per year Little interest or pleasure in doing things: several days Feeling down, depressed, or hopeless: several days Feel stressed/tense/nervous/anxious/difficulty sleeping: to some extent Do you think of yourself as: straight/heterosexual Gender Identity: female Exam Narrative Exam Narrative: Nurses note and vital signs reviewed and patient is not hypoxic. General: The patient appears mildly comfortable. She is in no respiratory distress Skin: Warm, dry, no pallor noted. There is no rash noted. Head: Normocephalic, atraumatic Eye: Normal conjunctiva, no drainage Ears, Nose, Mouth, and Throat: oral mucosa is moist. Nares patent. Cardiovascular: Regular Rate and Rhythm, not tachycardic Respiratory: Patient is in no distress, no accessory muscle use, lungs are clear to auscultation, no wheezing, rales or rhonchi Back: non-tender GI: Tenderness present in the right upper quadrant without mass or distention Musculoskeletal: The patient has no evidence of calf tenderness, no pitting edema, symmetrical pulses noted bilaterally Neurological: A&O, normal speech Psychiatric: Cooperative Constitutional Vital Signs, click to edit/add: Last Vital Signs Temp 98.2 F 04/28/24 22:36 Pulse 62 04/28/24 22:36 Resp 18 04/28/24 22:36 BP 196/100 H 04/28/24 22:36 Pulse Ox 99 04/28/24 22:36 O2 Del Method Room Air 04/28/24 22:36 Course Vital Signs Vital signs: Vital Signs Temperature 98.2 F 04/28/24 22:36 Pulse Rate 62 04/28/24 22:36 Respiratory Rate 18 04/28/24 22:36 Blood Pressure 196/100 H 04/28/24 22:36 Pulse Oximetry 99 04/28/24 22:36 Oxygen Delivery Method Room Air 04/28/24 22:36 Temperature 98.2 F 04/28/24 22:36 Pulse Rate 62 04/28/24 22:36 Respiratory Rate 18 04/28/24 22:36 Blood Pressure 196/100 H 04/28/24 22:36 Pulse Oximetry 99 04/28/24 22:36 Oxygen Delivery Method Room Air 04/28/24 22:36 MDM - Abdominal Pain MDM Narrative Medical decision making narrative: Amylase and lipase are elevated very minimally above upper limit of normal. CAT scan shows no findings of acute pancreatitis but does suggest constipation. She was given a few pain pills but will also take MiraLAX for the constipation and follow-up with her PCP. There is no clinical indication for admission to the hospital. Treatment diagnosis and disposition were discussed with the patient. Differential Diagnosis Differential diagnosis: Likely abdominal pain, calculus of kidney, constipation, diverticulitis, gastroenteritis, pancreatitis and small bowel obstruction Lab Data Attestation: I reviewed the patient's lab results. Labs: Lab Results 04/28/24 04/28/24 04/28/24 Range/Units 00:00 23:10 23:12 WBC 5.7 (4.0-11.0) 10^3/uL RBC 4.87 (4.20-5.40) 10^6/uL Hgb 14.7 (12.0-16.0) g/dL Hct 43.9 (36.0-48.0) % MCV 90.1 (81.0-99.0) fL MCH 30.2 (26.7-34.0) pg MCHC 33.5 (29.9-35.2) g/dL RDW 12.2 (11.0-15.0) % Plt Count 202 (150-450) 10^3/uL MPV 9.6 (9.5-13.5) fL Neut % (Auto) 44.8 (43.0-75.0) % Lymph % (Auto) 40.3 (20.5-60.0) % [place] % (Auto) 11.2 (1.7-12.0) % Eos % (Auto) 3.1 (0.9-7.0) % Baso % (Auto) 0.3 (0.2-2.0) % Neut # (Auto) 2.6 (1.4-6.5) 10^3/uL Lymph # (Auto) 2.3 (1.2-3.8) 10^3/uL [place] # (Auto) 0.6 (0.3-0.8) 10^3/uL Eos # (Auto) 0.2 (0.0-0.7) 10^3/uL Baso # (Auto) 0.0 (0.0-0.1) 10^3/uL Abs Immat Gran (auto) 0.02 (0.00-0.03) 10^3/uL Imm/Tot Granulo (auto) 0.3 (0.0-0.5) % Sodium 135 L (136-145) mmol/L Potassium 4.0 (3.5-5.1) mmol/L Chloride 101 (98-107) mmol/L Carbon Dioxide 31.0 (21.0-32.0) mmol/L Anion Gap 7.0 BUN 26.0 H (7.0-18.0) mg/dL Creatinine 0.59 (0.55-1.02) mg/dL Est GFR ( Amer) >60 (>=60) Est GFR (Non-Af Amer) >60 (>=60) BUN/Creatinine Ratio 44.1 Glucose 90 (74-106) mg/dL Calcium 9.4 (8.5-10.1) mg/dL Total Bilirubin 0.4 (0.2-1.0) mg/dL Direct Bilirubin 0.1 (0.0-0.2) mg/dL AST 44 H (15-37) U/L ALT 78 H (14-59) U/L Alkaline Phosphatase 86 (46-116) U/L Total Protein 6.9 (6.4-8.2) g/dL Albumin 3.7 (3.4-5.0) g/dL Globulin 3.2 g/dL Albumin/Globulin Ratio 1.2 Amylase 175 H (25-115) U/L Lipase 173.0 H (16.0-77.0) U/L Urine Color Lt. yellow (YELLOW) Urine Clarity Clear (CLEAR) Urine pH 7.5 (5.0-9.0) Ur Specific [place] 1.010 (1.005-1.025) Urine Protein Negative (NEG/TRACE) mg/dL Urine Glucose (UA) Negative (NEGATIVE) mg/dL Urine Ketones Negative (NEGATIVE) mg/dL Urine Occult Blood Negative (NEGATIVE) Urine Nitrite Negative (NEGATIVE) Urine Bilirubin Negative (NEGATIVE) Urine Urobilinogen 0.2 (0.2-1.0) EU/dL Ur Leukocyte Esterase Trace A (NEGATIVE) Urine RBC None seen (0-2) #/HPF Urine WBC 0-2 A (NONE SEEN) #/HPF Ur Squamous Epith Cells Rare (NONE/RARE) #/LPF Urine Crystals None seen (None Seen) #/HPF Amorphous Sediment Rare Urine Bacteria None seen (NONE SEEN) #/HPF Urine Casts None seen (NONE SEEN) #/LPF Urine Mucus None seen (NONE SEEN) Ur Culture Indicated? No Imaging Data CT scan - abdomen: Radiologist's impression: ITS Impressions Abdomen/Pelvis CT 04/29/24 00:00 IMPRESSION: 1. No specific etiology identified to explain the patient's abdominal pain. 2. Evidence of prior pancreatitis without evidence of acute inflammation. 3. Status post cholecystectomy and possible appendectomy as the appendix is not seen. 4. Prominent amount of stool in the colon without evidence of bowel obstruction. 5. Status post gastric bypass. 6. Trace free fluid in the pelvis. Electronically authenticated by: Melita KOHLI Date: 04/29/2024 01:17 ECG Data Attestation: I personally reviewed and interpreted this ECG as follows: (EKG on my interpretation shows normal sinus rhythm with a rate of 52 and no acute change) Discharge Plan Discharge Stand Alone Forms: Portal Instructions Chief Complaint: Abdominal Pain Clinical Impression: Abdominal pain, Constipation Patient Disposition: Home, Self-Care Time of Disposition Decision: 01:30 Condition: Good Mode of Transportation: Private Vehicle Prescriptions / Home Meds: New acetaminophen-codeine 300-30 mg tablet 1 tab PO Q6H PRN (Reason: pain) 2 Days Qty: 7 0RF No Action aspirin 81 mg tablet,delayed release (DR/EC) 81 mg PO BEDTIME atorvastatin 20 mg tablet 20 mg PO BEDTIME cevimeline 30 mg capsule 30 mg PO TID citalopram 40 mg tablet 40 mg PO DAILY fluticasone propionate 50 mcg/actuation spray,suspension 2 spray INTRANASAL BID rabeprazole 20 mg tablet,delayed release (DR/EC) 20 mg PO BID tamsulosin 0.4 mg capsule 0.4 mg PO DAILY tramadol 50 mg tablet 50 mg PO Q6H PRN (Reason: pain) Print Language: Georgian Instructions: Constipation (ED), Abdominal Pain (ED) Additional Instructions: Do not take Tylenol 3 while taking tramadol. Referrals: Ziggy Dejesus MD [Primary Care Provider] - 1 week
[2024-04-28 23:17] LABS: Bilirubin Urine NEGATIVE (NEGATIVE); Blood Urine NEGATIVE (NEGATIVE); Clarity Urine CLEAR (CLEAR); Color Urine LT. YELLOW (YELLOW); Glucose Urine UA NEGATIVE (NEGATIVE); Ketones Urine NEGATIVE (NEGATIVE); Leukocyte Esterase Urine TRACE (NEGATIVE); Nitrite Urine NEGATIVE (NEGATIVE); Protein Urine NEGATIVE (NEG/TRACE); Urobilinogen Urine 0.2 EU/dL (0.2-1.0); pH Urine 7.5 (5.0-9.0)
[2024-04-28 23:22] LABS: Bacteria Urine NONE SEEN #/HPF (NONE SEEN); RBC Urine NONE SEEN #/HPF (0-2); WBC Urine 0-2 #/HPF (NONE SEEN)
[2024-04-28 23:23] LABS: Amorphous Sediment Urine RARE; Cast Seen? NONE SEEN #/LPF (NONE SEEN); Crystals Seen? None Seen #/HPF (None Seen); Mucus Urine NONE SEEN (NONE SEEN); Squamous Epithelial Cell Urine RARE #/LPF (NONE/RARE); Urine Culture Indicated NO
[2024-04-28] MEDS: MORPHINE SULFATE 4 MG/ML VIAL 2 MG IV (23:43)
[2024-04-28] MEDS: ONDANSETRON PF 4 MG/2 ML VIAL IV (23:43)
--- NOTE | 2024-04-29 | CT_ITS ---
The [address] [address] Patient Name: JOSE ALBERTO SALEEM MRN: [id number] date: 1965 Sex: F Assigned Patient Location: ER Current Patient Location: Accession/Order Number: [id number] Exam Date: 04/29/2024 00:10 Report Date: 04/29/2024 01:17 At the request of: CYRUS WOODALL Procedure: CT abdomen pelvis w con EXAM: CT abdomen pelvis w con HISTORY: Upper abdominal pain, possible pancreatitis COMPARISON: CT abdomen and pelvis examination dated 02/04/2024. TECHNIQUE: Axial CT images through the abdomen and pelvis were obtained after the intravenous administration of contrast. Coronal and sagittal reformats were obtained. Dose reduction techniques were achieved by using automated exposure control and/or adjustment of mA and/or kV according to patient size and/or use of iterative reconstruction technique. FINDINGS: The visualized portions of the lung bases are clear. Partially imaged are postsurgical changes of the chest with median sternotomy wires in place. There is coronary artery disease. Abdomen: The liver and spleen enhance homogeneously without focal lesion. The patient is a status post a cholecystectomy. There is mild biliary prominence which can be seen status post cholecystectomy. Pancreatic calcifications are suggestive of prior pancreatitis without evidence of acute inflammation. A left adrenal calcification could represent the sequela of prior infection or hemorrhage. There is a right renal cyst. There are subcentimeter hypodensities in the right kidney that are too small to characterize by CT size criteria. The appendix is not seen. There is a prominent amount of stool in the colon without evidence of bowel obstruction. There are postsurgical changes of a gastric bypass. Otherwise, the pancreas, adrenal glands, kidneys, and bowel loops are unremarkable. There is no mesenteric or retroperitoneal lymphadenopathy. Pelvis: The bladder and rectum are unremarkable. There is no iliac or inguinal lymphadenopathy. The uterus is present. The ovaries appear within normal limits by CT. There is trace free fluid in the pelvis. There is moderate atherosclerotic disease. Bone windows show no aggressive osseous lesions. CT/CT abdomen pelvis w con IMPRESSION: 1. No specific etiology identified to explain the patient's abdominal pain. 2. Evidence of prior pancreatitis without evidence of acute inflammation. 3. Status post cholecystectomy and possible appendectomy as the appendix is not seen. 4. Prominent amount of stool in the colon without evidence of bowel obstruction. 5. Status post gastric bypass. 6. Trace free fluid in the pelvis. Electronically authenticated by: Melita KOHLI Date: 04/29/2024 01:17
[2024-04-29 00:06] LABS: Basophils Percent Auto 0.3 % (0.2-2.0); Eosinophils Absolute Auto 0.2 10^3/uL (0.0-0.7); Eosinophils Percent Auto 3.1 % (0.9-7.0); Hematocrit 43.9 % (36.0-48.0); Hemoglobin 14.7 g/dL (12.0-16.0); Immature Granulocytes Abs Auto 0.02 10^3/uL (0.00-0.03); Immature Granulocytes Pct Auto 0.3 % (0.0-0.5); Lymphocytes Absolute Auto 2.3 10^3/uL (1.2-3.8); Lymphocytes Percent Auto 40.3 % (20.5-60.0); Mean Corpuscular HGB Conc 33.5 g/dL (29.9-35.2); Mean Corpuscular Hemoglobin 30.2 pg (26.7-34.0); Mean Corpuscular Volume 90.1 fL (81.0-99.0); Mean Platelet Volume 9.6 fL (9.5-13.5); Monocytes Absolute Auto 0.6 10^3/uL (0.3-0.8); Monocytes Percent Auto 11.2 % (1.7-12.0); Neutrophils Absolute Auto 2.6 10^3/uL (1.4-6.5); Neutrophils Percent Auto 44.8 % (43.0-75.0); Platelet Count 202 10^3/uL (150-450); Red Blood Count 4.87 10^6/uL (4.20-5.40); Red Cell Distribution Width 12.2 % (11.0-15.0); White Blood Count 5.7 10^3/uL (4.0-11.0)
[2024-04-29 00:22] LABS: Alanine Aminotransferase 78 U/L (14-59); Albumin Globulin Ratio 1.2; Albumin Level 3.7 g/dL (3.4-5.0); Alkaline Phosphatase 86 U/L (46-116); Amylase 175 U/L (25-115); Aspartate Amino Transferase 44 U/L (15-37); BUN Creatinine Ratio 44.1; Bilirubin Direct 0.1 mg/dL (0.0-0.2); Bilirubin Total 0.4 mg/dL (0.2-1.0); Calcium 9.4 mg/dL (8.5-10.1); Chloride 101 mmol/L (98-107); Estimated GFR (African America >60 (>=60); Estimated GFR (Non-African Ame >60 (>=60); Globulin 3.2 g/dL; Glucose 90 mg/dL (74-106); Sodium 135 mmol/L (136-145); Total Protein 6.9 g/dL (6.4-8.2)
[2024-04-29] MEDS: ACETAMINOPHEN 300 MG/ 30 MG CODEINE TABLET 1 TAB PO (01:38)
== END 2024-04-29 01:45 | disposition home or self-care (01) ==
PROVIDERS: Emergency Provider Emergency Medicine; PCP Family Medicine
DX: K59.00 Constipation, unspecified (principal); R10.9 Unspecified abdominal pain; Z90.49 Acquired absence of other specified parts of digestive tract
CPT/HCPCS: 36415; 74177; 80048; 80076; 81001; 82150; 83690; 85025; 93005; 96374; 96375; 99285; J2270; J2405; Q9967

== ENCOUNTER 2024-05-01 06:51 | Outpatient (OUT) | payer BC, SELFPAY ==
--- OUTSIDE RECORDS SUMMARY | 2024-05-01 06:53 | XMS_ITS | CCD ---
Author Organization [facility] Team Providers Care Superintendent Maintenance Name Role Phone UNKNOWN, PROVIDER Unavailable Unavailable ZIGGY DEJESUS Unavailable Unavailable UNKNOWN, PROVIDER Unavailable Unavailable ZIGGY DEJESUS Unavailable Unavailable Ziggy Dejesus Primary Care Provider Ziggy Dejesus Unavailable Unavailable Unavailable Ziggy Dejesus MD Primary Care Provider [phone] Unavailable Unavailable Ziggy Dejesus Primary Care Physician DR CELSO GARIBAY [...] Unavailable MD Ziggy Dejesus Primary Care Provider [phone] MD Evert Bruno Attending Provider Evert Bruno Unavailable MD Ziggy Dejesus Primary Care Provider [phone] Asaad, MD Imad Attending Provider Asaad, Imad [...] Unavailable Ziggy Dejesus MD Primary Care Provider [phone] GABY CHAHAL Admitting Unavail able GABY CHAHAL Attending Unavail able HOY, ZIGGY M Primary Care Unavailable HOY, ZIGGY M Primary Care Unavailable Ziggy Dejesus MD Primary Care Provider [phone] CELSO GARIBAY Attending Unavailable ZIGGY DEJESUS MURIEL [...] 017 Other (See Comments), Shortness of breath [place], [place] (17 sources) Latex; 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: [LATEX] Propensity to adverse reactions to drug 006 Anaphylaxis, Shortness Of Breath, Anaphylaxis (disorder) [place] (13 sources) Penicillins; 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: [penicillins] Propensity to adverse reactions to drug 006 Hives, Anaphylaxis (disorder) [place] (3 sources) rosuvastatin Drug Allergy 019 [place] (20 sources) Sulfamethoxazole / Trimethoprim; 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: [Bactrim TABS] Drug Allergy 019 [place], [place] (11 sources) natural latex rubber Allergy to substance (finding) Shortness of breath [facility] [place] DO Work Phone: (11 sources) Penicillins; 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: [Penicillins] Allergy to drug (finding) [place] [address] DO Work Phone: (15 sources) rosuvastatin; 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: [Crestor TABS] Drug Allergy 023 Elevated liver enzymes level (finding), Other [facility] (15 sources) Sulfonamides (Antibiotic); 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: [Sulfa Drugs] Allergy to drug (finding) [facility] (11 sources) levoFLOXacin; 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: [levofloxacin] Drug Allergy 017 Other (See Comments), Candidiasis (disorder) [facility] Work Phone: (4 sources) Phenazopyridine; 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: [PHENAZOPYRIDINE HCL] Drug Allergy 006 [facility] Work Phone: (3 sources) Simvastatin; 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: [SIMVASTATIN] Drug Allergy 006 [facility] [employer] Phone: (2 sources) Sulfonamides (Antibiotic) Propensity to adverse reactions to drug 022 Other (See Comments) [facility] (7 sources) Tobramycin; 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: [tobramycin] Drug Allergy 023 Eruption of skin (disorder) [facility] (1 source) Baclofen Drug Allergy [facility] (1 source) Latex Drug allergy (disorder) [facility] (5 sources) levoFLOXacin; 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: [Levaquin] Drug Allergy thrush [facility] Repository (1 source) Penicillins Drug allergy (disorder) [facility] (1 source) rosuvastatin Drug Allergy [facility] Rep[facility] (1 source) Sulfonamides (Antibiotic) Drug allergy (disorder) [facility] Repository (9 sources) rosuvastatin; 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: [rosuvastatin] Drug Allergy 017 Gastrointestinal Upset [facility] (4 sources) Sulfamethoxazole; 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: [sulfamethoxazole] Drug Allergy [facility] (6 sources) Trimethoprim; 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: [trimethoprim] Drug Allergy [facility] (5 sources) Fenofibrate; 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: [FENOFIBRATE] Drug Allergy 009 ([place]) 08/08/2011 [facility] Vaccibody (3 sources) Penicillin Drug Allergy ([place]) 08/08/2011 [facility] Other (4 sources) Substance with sulfonamide structure and antibacterial mechanism of action (substance) Drug allergy 023 Shortness of breath [facility] Other (1 source) Baclofen Drug Allergy 023 [facility] Repository (1 source) Latex Drug allergy (disorder) [facility] Repository (1 source) levoFLOXacin Drug Allergy [facility] Repository (1 source) Penicillins Drug allergy (disorder) [facility] Repository (2 sources) Penicillins Propensity to adverse reactions to drug Hives, Rash [facility] Vaccibody (1 source) Tobramycin Drug Allergy 023 Rash [facility] Vaccibody (4 sources) Sulfonamides (Antibiotic); 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: [SULFA (SULFONAMIDE ANTIBIOTICS)] Propensity to adverse reactions to drug (disorder) [facility] Repository (3 sources) Fenofibrate; 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: [FENOFIBRATE MICRONIZED] Drug Allergy 009 [facility] Repository (1 source) fluvastatin; 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: [FLUVASTATIN] Drug Allergy [facility] Repository (1 source) natural latex rubber; 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: [LATEX, NATURAL RUBBER] Propensity to adverse reactions to drug (disorder) [facility] Repository (1 source) Phenazopyridine; 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: [PHENAZOPYRIDINE] Drug Allergy 006 [facility] Repository Medications Current Medications Medication Drug [...] 0 Active take 2 tablets by mo nhh once daily citalopram (CELEXA) 10 MG tablet [...] mouth two times weekly Vitamin D (Ergocalciferol) 16957 UNIT 1 capsule Orally TWICE a Week for 90 day(s) May, Active estradiol 0.1 mg/ml vaginal cream (1 source) Estrogen Start: 04-10-20 Estrace 0.1 mg/g Cream See Instructions, 42.5 gm, Refill(s) 6, apply a pea-sized amount vaginally and around the urethra nightly x 3 weeks, then 3x per week thereafter, [facility] #[id number], 160, cm, 04/10/24 15:13:00 EDT, Height/Length Dosing, [...] Start: 04-30-2020 fluticasone 0. 05 mg/inh Nasal [place] Refill(s) 0 Start Date: 04/30/20 Status: Ordered fluticasone 0.05 mg/inh Nasal [place] (2 sources) Start: 04-30-2020 fluticasone 0.05 mg/inh Nasal [place] Refill(s) 0 Start Date: 04/30/20 Status: Ordered [...] day(s), # 45 tab(s), Refills(s) 3, Pharmacy: [facility], 160, cm, 06/02/22 8:29:00 EDT, [...] Daily, # 90 tab(s), Refills(s) 3, Pharmacy: [facility], 160, cm, 05/27/21 8:19:00 EDT, [...] day(s), # 30 tab(s), Refills(s) 11, Pharmacy: [facility] #[id number], 160, cm, 04/10/24 15:13:00 EDT, Height/Length Dosing, [...] mouth 2 times a day. 0 Active Tbxngkyynvpv-Ufe-Rxi n-Fa-Vit K (Bariatric Multivitamins) 45 mg iron- 800 mcg-120 mcg Capsule (3 sources) Start: take 1 capsule by mouth twice daily Multivitamin-Min- Iron-Fa-Vit K (Bariatric Multivitamins) 45 mg iron- 800 mcg-120 mcg Capsule Active 1 CAP PO Twice daily November 01, 2022 1:00am Start: 11-01-2022 take 1 capsule by mo [place] twice daily Lqorgyiwgdih-Zqf-Qhdz-Fa-Vit K (Bariatri c Multivitamins) 45 mg iron- [...] tablet Indications: Atherosclerosis of coronary artery of [place] heart without angina pectoris, unspecified vessel or [...] 0 05/05/2020 Active omega-3 acid ethyl esters (snf) 1000 mg oral capsule (3 sources) take [...] April 22, 2018 12:01am polyethylene glycol 3350 966839 mg / potassium chloride 2970 mg / sodium bicarbonate 6740 mg / sodium chloride 5860 mg / sodium sulfate 48675 mg powder for oral solution (3 sources) [...] day(s), # 180 cap(s), Refills(s) 3, [facility], 160, cm, 05/27/21 8:19:00 EDT, Height/Length Dosing, 61, kg, 05/27/21 8:19:00 EDT, Weight Dosing Start Date: 03/14/22 Stop Date: 03/09/23 Status: Ordered Start: 04-17-2018 take 1 capsule by mo [place] once daily tamsulosin 0.4 mg Cap 0.4 mg = 1 cap(s), Oral, Daily, # 90 cap(s), Refills(s) 3, [facility], 160, cm, 06/02/22 8:29:00 EDT, Height/Length [...] day(s), # 30 tab(s), Refills(s) 11, Pharmacy: [facility] #[id number], 160, cm, 04/10/24 15:13:00 EDT, Height/Length Dosing, [...] ascorbic acid 226 mg / beta carotene 65640 unt / cuprous oxide 0.8 mg / [...] / neomycin 3.5 mg/ml / polymyxin b 50424 unt/ml ophthalmic suspension (3 sources) Aminoglycoside Antibacterial, Polymyxin-class Antibacterial, Corticosteroid Start: 06-13-2021 take 2 drop(s) into the eye(s) four times daily Neomycin-Polymyxin- HC 3.5-65181-1 Ophthalmic Suspension instill 2 drops INTO AFFECTED [...] sources) Coronary atherosclerosis; 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: [Coronary atherosclerosis of [place] coronary artery] Onset: 2 Chronic Coronary atherosclerosis [...] 3 06-18-2023 Chronic Other aftercare (1 source) 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 Appointment due by 06/19/2024 in juda with [facility] Urology Office/Clinic Noteon 04-10-2024 Urology Office/Clinic [...] E&M of Est. Patient High 40-54 Min 85386 Urnls Dip Stick Auto w/o Microscopy POC 13020 2. OAB (overactive bladder) (N32.81: Overactive bladder) [...] E&M of Est. Patient High 40-54 Min 14808 3. Urethral pain (R39.89: Other symptoms and [...] E&M of Est. Patient High 40-54 Min 15666 Orders: estradiol topical, See Instructions, 42.5 gm, Refill(s) 6, apply a pea-sized amount vaginally and around the urethra nightly x 3 weeks, then 3x per week thereafter, [facility] #[id number], 160, cm, 04/10/24 15:13:00 EDT, Height/Length Dosing, 74, kg, 04/10/24 15:13... mirabegron, 25 mg = 1 tab(s), Oral, Daily, do not fill both mirabegron AND vibegron. only fill whichever has lower co-pay., X 30 day(s), # 30 tab(s), Refills(s) 11, Pharmacy: [facility] #[id number], 160, cm, 04/10/24 15:13:00 EDT, Height/Length Dosing, 74, k... vibegron, 75 mg = 1 tab(s), Oral, Daily, X 30 day(s), # 30 tab(s), Refills(s) 11, Pharmacy: [facility] #[id number], 160, cm, 04/10/24 15:13:00 EDT, Height/Length Dosing, 74, kg, 04/10/24 15:13:00 EDT, Weight Dosing Total time spent reviewing previous notes/results/externa l documents, preparing the chart, conducting the encounter with the patient and family, ordering tests/medications, and documenting the encounter was 40 minutes. Follow-up With When Contact Information JENNIFER MARTINO PA-C, CARLOS Within 3 months [address] [place] [address] Additional Instructions: Patient Education Kidney Stones, Fzrz-qh-Oqom Problem List/Past Medical History Ongoing Anticoagulated Feeling of incomplete b (more content not included)... Normal [facility] Comment on above: Result Comment: Elec tronically Signed By: SALENA REDDY, JENNIFER Burks.pepe\Date and Time Signed: 04/10/24 16:09 EDT Glucose Glucometer (BldC) [M ass/Vol]on 03-06-2024 Glucose [Mass/Vol] 79 mg/dL Normal 65-[address] [facility] 36on 02-28-2024 36 Scheduled EGD/EUS 03/06/24 @1130, PTH, Dr. Cesar, PAT ph: 02/29/24 @1000, #[id number], Clinic appt 02/27/24 w/ Sherita. Normal [facility] [id number] 2023 ALPHA-1 ANTITRYPSIN 145 mg/dL Normal 90-200 [facility] Comment on above: Result Comment: To c onvert to umol/L, multiply mg/dL by 0.185 Performed By: [facility] [address] [place] [address] Distributor Operator: Sarwat Gorman MD, PhD CLIA Number: [id number] Performed By: #### L [id number] #### [facility] ([employer]) [address] [place] [address] ANAon 02-27-2024 CHAY TITER <1:40 Normal <=1:40 [facility] Comment on above: Result Comment: Test performed using BRIJESH IFA CHAY Hep-2 Test, a pre-standardized assay designed for the qualitative and semi-quantitative detection of antinuclear antibodies. Performed By: #### L [id number] #### [facility] (BEAKER) [address] [place] [address] ANTI-SMOOTH MUSCLE ANTIBODY TITERon 02-27-2024 SMOOTH MUSCLE AB, IGG TITER <1:20 Normal <1:20 [facility] Comment on above: Result Comment: INTE RPRETIVE INFORMATION: Smooth Muscle Ab, IgG Titer Less than 1:20 ........ Negative - No antibody detected. 1:20 - 1:80 .......... Weak Positive - Suggest repeat in two to three weeks with fresh specimen. 1:160 or greater ...... Positive - Suggestive of autoimmune hepatitis or chronic active hepatitis. Performed By: [facility] [address] [place] [address] Distributor Operator: Sarwat Gorman MD, PhD CLIA Number: [id number] Performed By: #### L [id number] #### [facility] [address] [place] [address] CBC WITH AUTO DIFFERENTIALon 02-27-2024 Basophils (Bld) [#/Vol] 0.01 10*3/uL Normal 0.00-0.20 [facility] Comment on above: Performed By: #### L [id number] #### [facility] ([facility]) [address] [place] [address] Basophils/100 WBC (Bld) 0.2 % Normal 0.0-1.0 [facility] Comment on above: Performed By: #### L [id number] #### [facility] ([facility]AKER) [address] [place] [address] Eosinophils (Bld) [#/Vol] 0.17 10*3/uL Normal 0.00-0.50 [facility] Comment on above: Performed By: #### L [id number] #### [facility] ([facility]ER) [address] [place] [address] Eosinophils/100 WBC (Bld) 3.2 % Normal 0.0-6.0 [facility] Comment on above: Performed By: #### L [id number] #### [facility] ([facility]ER) [address] [place] [address] Erythrocyte distribution width (RBC) [Ratio] 12.6 % Normal 11.5-15.0 [facility] Comment on above: Performed By: #### L [id number] #### [facility] ([facility]ER) [address] [place] [address] ERYTHROCYTE MEAN CORPUSCULAR HEMOGLOBIN CONCENTRATION (G/DL) BY AUTOMATED 33.6 g/dL Normal 32.0-35.0 [facility] Comment on above: Performed By: #### L [id number] #### [facility] ([facility]) [address] [place] [address] Hematocrit (Bld) [Volume fraction] 44.0 % Normal 36.0-48.0 [facility] Comment on above: Performed By: #### L [id number] #### [facility] ([facility]) [address] [place] [address] Hemoglobin (Bld) [Mass/Vol] 14.8 g/dL Normal 12.0-15.0 [facility] Comment on above: Performed By: #### L [id number] #### [facility] ([facility]) [address] [place] [address] Immature granulocytes (Bld) [#/Vol] 0.01 10*3/uL Normal 0.00-0.20 [facility] Comment on above: Performed By: #### L [id number] #### [facility] ([facility]) [address] [place] [address] Immature granulocytes/100 WBC (Bld) 0.2 % Normal 0.0-1.0 [facility] Comment on above: Performed By: #### L [id number] #### [facility] ([facility] [address] [place] [address] Lymphocytes (Bld) [#/Vol] 1.19 10*3/uL Low 1.20-4.00 [facility] Comment on above: Performed By: #### L [id number] #### [facility] ([facility]) [address] [place] [address] Lymphocytes/100 WBC (Bld) 22.3 % Normal 20.0-45.0 [facility] Comment on above: Performed By: #### L [id number] #### [facility] ([facility]) [address] [place] [address] MCH (RBC) [Entitic mass] 30.2 pg Normal 27.0-33.0 [facility] Comment on above: Performed By: #### L [id number] #### [facility] ([facility]) [address] [place] [address] MCV (RBC) [Entitic vol] 89.8 fL Normal 82.0-98.0 [facility] Comment on above: Performed By: #### L [id number] #### [facility] ([facility]) [address] [place] [address] Monocytes (Bld) [#/Vol] 0.53 10*3/uL Normal 0.10-1.00 [facility] Comment on above: Performed By: #### L [id number] #### [facility] ([facility]) [address] [place] [address] Monocytes/100 WBC (Bld) 9.9 % Normal 5.0-12.0 [facility] Comment on above: Performed By: #### L [id number] #### [facility] ([facility]) [address] [place] [address] Neutrophils (Bld) [#/Vol] 3.42 10*3/uL Normal 1.60-7.60 [facility] Comment on above: Performed By: #### L [id number] #### [facility] ([facility]) [address] [place] [address] Neutrophils/100 WBC (Bld) 64.2 % Normal 40.0-72.0 [facility] Comment on above: Performed By: #### L [id number] #### [facility] ([facility]) [address] [place] [address] NRBC (PER 100 WBCS) BY AUTOMATED COUNT 0.0 % Normal 0 [facility] Comment on above: Performed By: #### L [id number] #### [facility] ([facility]) [address] [place] [address] PLATELETS (10*3/UL) IN BLOOD AUTOMATED COUNT 198 10*3/uL Normal 150-400 [facility] Comment on above: Performed By: #### L [id number] #### [facility] ([facility]) [address] [place] [address] RBC (Bld) [#/Vol] 4.90 10*6/uL Normal 3.80-5.00 [facility] Comment on above: Performed By: #### L [id number] #### [facility] ([facility]) [address] [place] [address] WBC (Bld) [#/Vol] 5.33 10*3/uL Normal 4.00-10.60 [facility] Comment on above: Performed By: #### L [id number] #### [facility] ([facility]) [address] [place] [address] COMPREHENSIVE METABOLIC PANE [place] 02-27-2024 Albumin [Mass/Vol] 4.4 g/dL Normal 3.5-5.7 [facility] Comment on above: Performed By: #### L [id number] #### [facility] ([facility]) [address] [place] [address] ALP [Catalytic activity/Vol] 84 U/L Normal 34-104 [facility] Comment on above: Performed By: #### L [id number] #### [facility] ([facility]) [address] [place] [address] ALT [Catalytic activity/Vol] 43 U/L Normal 7-52 [facility] Comment on above: Performed By: #### L [id number] #### [facility] ([facility]) [address] [place] [address] Anion gap [Moles/Vol] 11 mmol/L Normal 7-20 [facility] Comment on above: Performed By: #### L [id number] #### [facility] ([facility]) [address] [place] [address] AST [Catalytic activity/Vol] 33 U/L Normal 13-39 [facility] Comment on above: Performed By: #### L [id number] #### [facility] ([facility]) [address] [place] [address] Bilirubin [Mass/Vol] 0.4 mg/dL Normal 0.3-1.0 [facility] Comment on above: Performed By: #### L [id number] #### [facility] ([facility]) [address] [place] [address] Calcium [Mass/Vol] 9.9 mg/dL Normal 8.6-10.3 [facility] Comment on above: Performed By: #### L [id number] #### [facility] ([facility]) [address] [place] [address] Chloride [Moles/Vol] 102 mmol/L Normal 98-107 [facility] Comment on above: Performed By: #### L [id number] #### [facility] ([facility]) [address] [place] [address] CO2 [Moles/Vol] 29 mmol/L Normal 21-31 [facility] Comment on above: Performed By: #### L [id number] #### [facility] ([facility]) [address] [place] [address] Creatinine [Mass/Vol] 0.62 mg/dL Normal 0.60-1.20 [facility] Comment on above: Performed By: #### L [id number] #### [facility] ([facility]) [address] [place] [address] GLOMERULAR FILTRATION RATE ML/MIN/1.73 SQ M.PREDICTED 102.5 mL/min/1.73m*2 Normal >60.0 [facility] Comment on above: Result Comment: [facility]???s estimated glomerular filtration rate (eGFR) will [...] SERVICES LAB (BEAKER) [address] [place] [address] Glucose [Mass/Vol] 90 mg/dL Normal 70-100 [facility] Comment on above: Performed By: #### L [id number] #### [facility] [address] [place] [address] Potassium [Moles/Vol] 4.2 mmol/L Normal 3.5-5.1 [facility] Comment on above: Performed By: #### L [id number] #### [facility] ([facility]) [address] [place] [address] Protein [Mass/Vol] 6.9 g/dL Normal 6.0-8.3 [facility] Comment on above: Performed By: #### L [id number] #### [facility] ([facility]) [address] [place] [address] Sodium [Moles/Vol] 138 mmol/L Normal 136-145 [facility] Comment on above: Performed By: #### L [id number] #### [facility] ([facility]) [address] [place] [address] Urea nitrogen [Mass/Vol] 27 mg/dL High 7-25 [facility] Comment on above: Performed By: #### L [id number] #### [facility] ([facility]) [address] [place] [address] UREA NITROGEN/CREATININE (MASS RATIO) IN SER/PLAS 43.5 Normal [facility] Comment on above: Performed By: #### L [id number] #### [facility] ([facility]) [address] [place] [address] COPPER, SERUMon 02-27-2024 COPPER 125.0 ug/dL Normal 80.0-155.0 [facility] Comment on above: Result Comment: INTE [...] developed and its performance characteristics determined by [facility]. It has not been cleared or approved by the [place] Food and Drug Administration. This test was performed in a CLIA certified laboratory and is intended for clinical purposes. Performed By: [facility] [address] [place] [address] Distributor Operator: Sarwat Gorman MD, PhD CLIA Number: [id number] Performed By: #### L [id number] #### [facility] ([facility]) [address] [place] [address] FERRITINon 02-27-2024 FERRITIN (NG/ML) IN SER/PLAS 32.0 ng/mL Normal 11.0-307.0 [facility] Comment on above: Performed By: #### L [id number] #### [facility] ([facility]AKER) [address] [place] [address] FOLATEon 02-27-2024 FOLATE (NG/ML) IN SER/PLAS 39.0 ng/mL Normal 6.6-1000 [facility] Comment on above: Performed By: #### L [id number] #### [facility] ([facility]) [address] [place] [address] HEMOGLOBIN A1Con 02-27-2024 Glucose [Mass/Vol] 100 mg/dL Normal [facility] Comment on above: Performed By: #### L [id number] #### [facility] ([facility]) [address] [place] [address] HbA1c (Bld) [Mass fraction] 5.1 % Normal 4.0-6.0 [facility] Comment on above: Performed By: #### L [id number] #### [facility] ([facility]) [address] [place] [address] HEPATITIS PANEL, ACUTEon HEPATITIS A VIRUS IGM AB PRESENCE IN SER/PLAS Non-Reactive Normal Nonreactive [facility] Comment on above: Performed By: #### L [id number] #### [facility] ([facility]) [address] [place] [address] HEPATITIS B VIRUS CORE AB (PRESENCE) IN SER/PLAS BY IMM Non-Reactive Normal Nonreactive [facility] Comment on above: Performed By: #### L [id number] #### [facility] ([facility]) [address] [place] [address] HEPATITIS B VIRUS SURFACE AG PRESENCE IN SERUM Non-Reactive Normal Nonreactive [facility] Comment on above: Performed By: #### L [id number] #### [facility] ([facility]) [address] [place] [address] HEPATITIS C VIRUS AB PRESENCE IN SERUM Non-Reactive Normal Nonreactive [facility] Comment on above: Performed By: #### L [id number] #### [facility] ([facility]) [address] [place] [address] IGAon 02-27-2024 Magnesium [Mass/Vol] 108 mg/dL Normal 60-413 [facility] Comment on above: Performed By: #### L [id number] #### [facility] ([facility]) [address] [place] [address] IGG 1, 2, 3, AND 4on 024 IgG subclass 1 (S) [Mass/Vol] 293 mg/dL Normal 240-1118 [facility] Comment on above: Result Comment: REFE RENCE INTERVAL: Immunoglobulin G Subclass 1 The total IgG (mg/dL) can be derived from the sum of the subclass IgG1, IgG2, IgG3, and IgG4 values. However, a confirmatory and more precise total IgG is available by the turbidimetric method of quantitation for total IgG. Refer to test Immunoglobulin G, Serum ([id number]). Access complete set of age- and/or gender-specific reference intervals for this test in the [employer] [facility] Test Directory ([place]). Performed By: #### L [id number] #### [facility] ([facility]) [address] [place] [address] IgG subclass 2 (S) [Mass/Vol] 160 mg/dL Normal 124-549 [facility] Comment on above: Result Comment: REFE RENCE INTERVAL: Immunoglobulin G Subclass 2 Access complete set of age- and/or gender-specific reference intervals for this test in the [employer] [facility] Test Directory ([place]). Performed By: #### L [id number] #### [facility] ([facility]) [address] [place] [address] IgG subclass 3 (S) [Mass/Vol] 32 mg/dL Normal 21-134 [facility] Comment on above: Result Comment: REFE RENCE INTERVAL: Immunoglobulin G Subclass 3 Access complete set of age- and/or gender-specific reference intervals for this test in the [employer] [facility] Test Directory ([place]). Performed By: #### L [id number] #### [facility] ([facility]) [address] [place] [address] IgG subclass 4 (S) [Mass/Vol] 21 mg/dL Normal 1-123 [facility] Comment on above: Result Comment: REFE RENCE INTERVAL: Immunoglobulin G Subclass 4 Access complete set of age- and/or gender-specific reference intervals for this test in the [employer] [facility] Test Directory ([place]). Performed By: [employer] [address] [place] [address] Distributor Operator: Sarwat Gorman MD, PhD CLIA Number: [id number] Performed By: #### L [id number] #### [facility]) [address] [place] [address] IRON AND TIBCon 02-27-2024 IRON (UG/DL) IN SER/PLAS 56 ug/dL Normal 50-212 [facility] Comment on above: Performed By: #### L [id number] #### [facility] [address] [place] [address] IRON BINDING CAPACITY (UG/DL) IN SER/PLAS 364 ug/dL Normal 250-450 [facility] Comment on above: Performed By: #### L [id number] #### [facility] ([facility]) [address] [place] [address] IRON BINDING CAPACITY.UNSATURATED (UG/DL) IN SER/PLAS 308.0 ug/dL Normal 155.0-355.0 [facility] Comment on above: Performed By: #### L [id number] #### [facility] ([facility]) [address] [place] [address] IRON SATURATION (%) IN SER/PLAS 15 % Low 20-50 [facility] Comment on above: Performed By: #### L [id number] #### [facility] ([facility]) [address] [place] [address] LIPID PANELon 02-27-2024 CHOL/HDL 2.9 mg/dL Normal [facility] Comment on above: Performed By: #### L [id number] #### [facility] ([facility]) [address] [place] [address] Cholesterol [Mass/Vol] 111 mg/dL Low 120-200 [facility] Comment on above: Performed By: #### L [id number] #### [facility] ([facility]) [address] [place] [address] Magnesium [Mass/Vol] 144 mg/dL Normal 40-149 [facility] Comment on above: Result Comment: TRIG LYCERIDE REFERENCE RANGE: 20 YEARS AND OLDER CARDIOVASCULAR RISK LESS THAN 150 mg/dL LOW RISK 150 TO 199 mg/dL BORDERLINE RISK 200 mg/dL AND GREATER HIGH RISK Performed By: #### L [id number] #### [facility] ([facility]) [address] [place] [address] Magnesium [Mass/Vol] 44 mg/dL Normal 0-160 [facility] Comment on above: Performed By: #### L [id number] #### [facility] ([facility]) [address] [place] [address] Magnesium [Mass/Vol] 38 mg/dL Normal 23-92 [facility] Comment on above: Performed By: #### L [id number] #### [facility] ([facility]) [address] [place] [address] NON HDL CHOL. (LDL+VLDL) 73 Normal [facility] Comment on above: Performed By: #### L [id number] #### [facility] ([facility]) [address] [facility] [place] [address] TOTAL VLDL-C 29 mg/dL Normal 0-[address] [place] [facility] Comment on above: Performed By: #### L [id number] #### [facility] ([facility]) [address] [place] [address] LIVER FIBROSIS CHRONIC VIRAL HEPATITISon 02-27-2024 [id number] , FIBROMETER 328 mg/dL High 131-293 [facility] Comment on above: Performed By: #### L [id number] #### [facility] ([facility]) [address] [place] [address] ALT [Catalytic activity/Vol] 57 U/L High 5-40 [facility] Comment on above: Performed By: #### L [id number] #### [facility] ([facility]) [address] [place] [address] Amylase [Catalytic activity/Vol] 18 U/L Normal 7-33 [facility] Comment on above: Performed By: #### L [id number] #### [facility] ([facility]) [address] [place] [address] AST [Catalytic activity/Vol] 41 U/L High 9-40 [facility] Comment on above: Performed By: #### L [id number] #### [facility] ([facility]) [address] [place] [address] CIRRHOMETER PATIENT SCORE 0.08 Normal [facility] Comment on above: Performed By: #### L [id number] #### [facility] ([facility]) [address] [place] [address] EER FIBROMETER REPORT See Note Normal [facility] Comment on above: Result Comment: Auth orized individuals can access the [employer] Enhanced Report using the following link: [email or web address] Performed By: #### L [id number] #### [facility] ([place]) [address] [place] [address] FIBROMETER INTERPRETATION See Report Normal [facility] Comment on above: Result Comment: [17] [13] INTERPRETIVE INFORMATION: Fibrometer Interpretation Calculations for the final report are based on accurate data for age, gender, and platelet count. If any of this information needs to be corrected, please contact [employer] to request a recalculation. Client [...] developed and its performance characteristics determined by [employer]. It has not been cleared or approved by the [place] Food and Drug Administration. This test was performed in a CLIA certified laboratory and is intended for clinical purposes. Performed By: [employer] [address] [place] [address] Distributor Operator: Sarwat Gorman MD, PhD CLIA Number: [id number] Performed By: #### L [id number] #### [facility] ([facility]) [address] [place] [address] FIBROMETER PATIENT SCORE 0.62 [facility] Comment on above: Performed By: #### L [id number] #### [facility] ([facility]) [address] [place] [address] FIBROMETER PLATELET COUNT 198 k/uL [facility] Comment on above: Performed By: #### L [id number] #### [facility] ([facility]) [address] [place] [address] FIBROMETER PROTHROMBIN INDEX 81 % Low 90-120 [facility] Comment on above: Performed By: #### L [id number] #### [facility] ([facility]) [address] [place] [address] FIBROSIS METAVIR CLASSIFICATION F2[F1-F3] [facility] Comment on above: Result Comment: INTE [...] [facility] ([facility]) [address] [place] [address] INFLAMETER METAVIR CLASSIFICATION A1/A2 [facility] Comment on above: Result Comment: INTE RPRETIVE INFORMATION: InflaMeter Metavir Classification [employer]aMeter (activity score) comments A0/A1 Equal probability between A0 and A1 A1/A2 Equal probability between A1 and A2 A2/A3 Equal probability between A2 and A3 Performed By: #### L [id number] #### [facility] ([facility]) [address] [place] [address] INFLAMETER PATIENT SCORE 0.62 [facility] Comment on above: Performed By: #### L [id number] #### [facility] ([place]) [address] [place] [address] Urea nitrogen [Mass/Vol] 28 mg/dL High 7-20 [facility] Comment on above: Performed By: #### L [id number] #### [facility] ([place]) [address] [facility] [address] Labon 02-27-2024 Lab [id number] Jose Alberto Saleem 1965 F Date Provider Department Center 02/27/2024 [facility] RESOURCE [facility] Medical Pavi Family History Problem Relation Age of Onset Hyperlipidemia Mother Hyperlipidemia Father Hyperlipidemia Brother Heart attack Brother Family Status - Relation Status Age at Mother Father Brother Brother Normal [facility] MITOCHONDRIAL ANTIBODIES, M2 on 02-27-2024 MITOCHONDRIAL M2 ANTIBODY 7.2 Units Normal 0.0-24.9 [facility] Comment on above: Result Comment: REFE [...] does not rule out PBC. Performed By: [employer] [address] [place] [address] Distributor Operator: Sarwat Gorman MD, PhD CLIA Number: [id number] Performed By: #### L [id number] #### [facility] ([place]) [address] [facility] [place] [address] Office Visiton 02-27-2024 Follow-up visit [id number] Jose Alberto Saleem 1965 F Date Provider Department [place] 02/27/2024 [facility] Medical Pavi Family History Problem Relation Age of Onset Hyperlipidemia Mother Hyperlipidemia Father Hyperlipidemia Brother Heart attack Brother Family Status - Relation Status Age at Mother Father Brother Brother Level of Service:98936 HI OFFICE/OUTPATIENT NEW MODERATE MDM 45 MINUTES (GC) Reason for Visit and Comments: New Patient [632] Pancreatitis [319839] Normal [facility] PROTIME-INRon 02-27-2024 INR IN PPP BY COAGULATION ASSAY 1.08 Normal 0.90-1.10 [facility] Comment on above: Result Comment: ACCC [...] #### [facility]) [address] [place] [address] PROTHROMBIN TIME (PT) IN PPP BY COAGULATION ASSAY 14.0 Seconds Normal 12.3-14.8 [facility] Comment on above: Performed By: #### L [id number] #### [facility]) [address] [place] [address] TISSUE TRANSGLUTAMINASE, IGA on 02-27-2024 TISSUE TRANSGLUTAMINASE, IGA <1.02 Normal 0.00-4.99 [facility] Comment on above: Result Comment: INTE [...] indicate a response to therapy. Performed By: [employer] [address] [place] [address] Distributor Operator: Sarwat Gorman MD, PhD CLIA Number: [id number] Performed By: #### L [id number] #### [facility] ([facility]) [address] [place] [address] TSH3 REFLEX TO FT4on 024 THYROTROPIN (MIU/L) IN SER/PLAS BY DETECTION LIMIT <= 0.05 MIU/L 2.02 mIU/L Normal 0.34-5.60 [facility] Comment on above: Performed By: #### L [id number] #### [facility] ([facility]) [address] [place] [address] VITAMIN B12on 02-27-2024 Cobalamin (Vitamin B12) [Mass/Vol] 1862 pg/mL High 180-914 [facility] Comment on above: Result Comment: REFE RENCE RANGES: 180-914 pg/mL Normal 145-179 pg/mL Indeterminate <145 pg/mL Deficient Performed By: #### L [id number] #### [facility] [address] [place] [address] VITAMIN D 25 HYDROXYon 02-26 CALCIDIOL (25 [place] VITAMIN D3) (NG/ML) IN SER/PLAS 62.1 ng/mL Normal 30.0-80.0 [facility] Comment on above: Result Comment: >80. 0 Toxicity possible Performed By: #### L [id number] #### [facility] ([facility]) [address] [place] [address] Orders Onlyon 02-12-2024 Orders Only [id number] Jose Alberto Saleem 1965 F Date Provider Department [place] 02/12/2024 [id number], HISTORICAL MP GI Medical Pavi No family history on file Normal [facility] Lab Reportson 01-23-2024 Lab Reports [id number] .00TIFF Normal [facility] Lab Reports [id number] .00TIFF Normal [facility] Lab Reportson 01-22-2024 Lab Reports [id number] .00TIFF Normal [facility] Lab Reports [id number] .00TIFF Normal [facility] Lab Reports [id number] .00TIFF Normal [facility] RAD - MISCon 01-22-2024 RAD - MISC [id number] .00TIFF Normal [facility] Surgical Pathology Reporton 06-18-2023 Surgical Pathology Report (NOTE) Path Number: [id number] -- Diagnosis -- ENDOMETRIAL CURETTINGS: -BENIGN ENDOMETRIAL [...] Microscopic Description Microscopic examination performed. Processing Lab: [address] [address] Interpretation Performed at [facility] [address] [place], [place] SURGICAL PATHOLOGY CONSULTATION Patient Name: JOSE ALBERTO SALEEM [facility] Rec: [id number] [facility] ANATOMIC PATHOLOGY [address] [place] [address]. [place], [place] [address] Normal [facility] NON OB TRANSVAGINALon US NON OB TRANSVAGINAL [...] Gaby Tello DO 06/05/23 Final result Normal [facility] CHAY Antinuclear Antibodieson 12-12-2022 Antinuclear Abs, IFA Negative Normal . [facility] Comment on above: Order Comment: Reaso n for Exam Elevated liver function tests Result Comment: Nega tive <1:80 Borderline 1:80 Positive >1:80 ICAP nomenclature: AC-0 For more information about Hep-2 cell patterns use ANApatterns.org, the official website for the International Consensus on Antinuclear Antibody (CHAY) Patterns (ICAP). Performed at: - [facility] [address] [id number] Sales Representative [employer]: Afshin Martinez PhD, Phone: [phone] Performed By: #### H AABT, SMAB, HCV RX PCR, HBSAG, CERULOP, HBCAB, ALPHA PHEN, IGG, MITOM2, HBSAB, CHAY, L-K MICRO #### [facility] , #### ABDIRASHID #### [address] Xwanr-[id number] Phenotyp anthony 12-12-2022 Alpha 1 Anti-Trypsin 172 mg/dL Normal 101-187 [facility] Comment on above: Order Comment: Reaso n for Exam Elevated liver function tests Performed By: #### H AABT, SMAB, HCV RX PCR, HBSAG, CERULOP, HBCAB, ALPHA PHEN, IGG, MITOM2, HBSAB, CHAY, L-K MICRO #### [facility] , #### ABDIRASHID #### [facility] [address] Phenotype (P1) MM Normal . [facility] Comment on above: Order Comment: [...] used to confirm phenotype. Performed at: [address] [id number] Sales Representative [employer]: Afshin Martinez PhD, Phone: [phone] Performed at: [address] [id number] Sales Representative [employer]: Toni Guidry MD, Phone: [phone] Performed By: #### H AABT, SMAB, HCV RX PCR, HBSAG, CERULOP, HBCAB, ALPHA PHEN, IGG, MITOM2, HBSAB, CHAY, L-K MICRO #### [facility] , #### ABDIRASHID #### [facility] [address] [place] [address] [place] Ceruloplasminon 12-12-2022 Ceruloplasmin 30.6 mg/dL Normal 19.0-39.0 [facility] Comment on above: Order Comment: Reaso n for Exam Elevated liver function tests Performed By: #### H AABT, SMAB, HCV RX PCR, HBSAG, CERULOP, HBCAB, ALPHA PHEN, IGG, MITOM2, HBSAB, CHAY, L-K MICRO #### [facility] , #### ABDIRASHID #### [address] Ceruloplasmin 30.6 mg/dL 19.0-39.0 mg/dL [facility] [employer] Other Ferritinon 12-12-2022 Ferritin [Mass/Vol] 43.8 ng/mL Normal 11.0-306.8 [facility] Comment on above: Order Comment: Reaso n for Exam Elevated liver function tests Result Comment: PERF ORMED BY: [place] [address] PATHOLOGIST BOOMBOAT OPERATOR JULISSA GA M.D. Performed By: #### H AABT, SMAB, HCV RX PCR, HBSAG, CERULOP, HBCAB, ALPHA PHEN, IGG, MITOM2, HBSAB, CHAY, L-K MICRO #### [facility] , #### ABDIRASHID #### [address] Ferritin [Mass/Vol] 43.4753355 ng/mL Normal 11.0 -306.8 ng/mL [facility] [employer] Other Hep C Ab wRfx to Qnt PCRon 0 12-12-2022 Hepatitis C Virus Antibody Non-Reactive Normal Non Reactive [facility] Comment on above: Order Comment: Reaso n for Exam Elevated liver function tests Performed By: #### H AABT, SMAB, HCV RX PCR, HBSAG, CERULOP, HBCAB, ALPHA PHEN, IGG, MITOM2, HBSAB, CHAY, L-K MICRO #### [facility] , #### ABDIRASHID #### [address] Interpretation Hepatitis C Normal . [facility] Comment on above: Order Comment: [...] MICRO #### [facility] , #### ABDIRASHID #### [facility] [address] Hepatitis A Antibody Totalon 12-12-2022 Hepatitis A Antibody Total Negative Normal Negative [facility] Comment on above: Order Comment: Reaso n for Exam Elevated liver function tests Result Comment: Perf ormed at: [facility] [id number] Sales Representative [employer]: Afshin Martinez PhD, Phone: [phone] Performed By: #### H AABT, SMAB, HCV RX PCR, HBSAG, CERULOP, HBCAB, ALPHA PHEN, IGG, MITOM2, HBSAB, CHAY, L-K MICRO #### [facility] , #### ABDIRASHID #### [facility] [address] [place] [address] Hepatitis A Antibody Total Negative . [employer] Other Hepatitis B Core Antibodyon 12-12-2022 Hepatitis B Core Antibody Negative Normal Negative [facility] Comment on above: Order Comment: Reaso n for Exam Elevated liver function tests Performed By: #### H AABT, SMAB, HCV RX PCR, HBSAG, CERULOP, HBCAB, ALPHA PHEN, IGG, MITOM2, HBSAB, CHAY, L-K MICRO #### [facility] , #### ABDIRASHID #### [facility] [address] Hepatitis B Surface Antibody on 12-12-2022 Hepatitis B Surface Antibody Non-Reactive Normal . [facility] Comment on above: Order Comment: Reaso n for Exam Elevated liver function tests Result Comment: Non Reactive: Inconsistent with immunity, less than 10 mIU/mL Reactive: Consistent with immunity, greater than 9.9 mIU/mL Performed By: #### H AABT, SMAB, HCV RX PCR, HBSAG, CERULOP, HBCAB, ALPHA PHEN, IGG, MITOM2, HBSAB, CHAY, L-K MICRO #### [facility] , #### ABDIRASHID #### [address] Hepatitis B Surface Antibody Non-Reactive Non Reactive [employer] Other Hepatitis B Surface Antigeno n 12-12-2022 HBsAg Screen Negative Normal Negative [facility] Comment on above: Order Comment: Reaso n for Exam Elevated liver function tests Result Comment: PERF ORMED BY: [place] [address] PATHOLOGIST BOOMBOAT OPERATOR JULISSA GA M.D. Performed By: #### H AABT, SMAB, HCV RX PCR, HBSAG, CERULOP, HBCAB, ALPHA PHEN, IGG, MITOM2, HBSAB, CHAY, L-K MICRO #### [facility] , #### ABDIRASHID #### [place] [address] [place] Immunoglobulin Javi Immunoglobulin G 823 mg/dL Normal 586-1602 [facility] Comment on above: Order Comment: Reaso n for Exam Elevated liver function tests Result Comment: Perf ormed at: [facility] [address] [id number] Sales Representative [employer]: Afshin Martinez PhD, Phone: [phone] Performed By: #### H AABT, SMAB, HCV RX PCR, HBSAG, CERULOP, HBCAB, ALPHA PHEN, IGG, MITOM2, HBSAB, CHAY, L-K MICRO #### [facility] , #### ABDIRASHID #### [address] Immunoglobulin G 823 mg/dL 586-1602 mg/dL [employer] Other Liver-Kidney Microsomal Abon 12-12-2022 Liver-Kidney Microsomal Ab 1.1 Normal 0.0-20.0 [facility] Comment on above: Order Comment: Reaso n for Exam Elevated liver function tests Result Comment: Nega tive 0.0 - 20.0 Equivocal 20.1 - 24.9 Positive >24.9 LKM type 1 antibodies are detected in patients with autoimmune hepatitis type 2 and in up to 8% of patients with chronic HCV infection. Performed at: [facility] [employer] [id number] Sales Representative [employer]: Afshin Martinez PhD, Phone: [phone] PERFORMED BY: [place] [address] PATHOLOGIST BOOMBOAT OPERATOR JULISSA GA M.D. Performed By: #### H AABT, SMAB, HCV RX PCR, HBSAG, CERULOP, HBCAB, ALPHA PHEN, IGG, MITOM2, HBSAB, CHAY, L-K MICRO #### [facility] , #### ABDIRASHID #### [address] Liver-Kidney Microsomal Ab 1.1 0.0-20.0 [employer] Other Mitochondrial (M2) Antibodyo n 12-12-2022 Mitochondrial (M2) Antibody <20.0 Normal 0.0-20.0 [facility] Comment on above: Order Comment: Reaso n for Exam Elevated liver function tests Result Comment: Nega tive 0.0 - 20.0 Equivocal 20.1 - 24.9 Positive >24.9 Mitochondrial (M2) Antibodies are found in 90-96% of patients with primary biliary cirrhosis. Performed at: [facility] [employer] [id number] Sales Representative [employer]: Afshin Martinez PhD, Phone: [phone] Performed By: #### H AABT, SMAB, HCV RX PCR, HBSAG, CERULOP, HBCAB, ALPHA PHEN, IGG, MITOM2, HBSAB, CHAY, L-K MICRO #### [facility] , #### ABDIRASHID #### [facility] [address] [place] [address] [facility] Mitochondrial (M2) Antibody <20.0 0.0-20.0 [facility] [employer] Other Smooth Muscle Antibodyon Smooth Muscle Antibody 5 Normal 0-19 [facility] Comment on above: Order Comment: [...] MICRO #### [facility] , #### ABDIRASHID #### [facility] [address] [place] [address] [facility] Smooth Muscle Antibody 5 0-19 [facility] [employer] Other MR MRCPon 11-10-2022 MR MRCP [facility] Main [place] [address] [place] [address] MRI Report Signed Patient: Jose Alberto Saleem MR#: [id number] : 1965 Acct:[id number] Age/Sex: 57 / F ADM Date: 11/10/22 Loc: Room: Type: [facility] Attending Dr: Evert Bruno MD Copies to: [...] There is no dilated bowel within the euxas-ea-gjyr. MR/MR MRCP IMPRESSION: SLIGHTLY PROMINENT COMMON DUCT, WITHOUT CHOLEDOCHOLITHIASIS. THIS MAY RELATE TO PREVIOUS CHOLECYSTECTOMY. RIGHT RENAL CYSTS. NO OTHER SIGNIFICANT MRI FINDINGS. Impression dictated by: Thelma Wick M.D.11/10/2022 7:00 PM Dictation Location: [place] [address] Transcribed By: [facility] 11/10/221899 Dictated By: Thelma Wick MD 11/10/221849 Signed By: 11/10/221899 [facility] MR MRCP [facility] [employer] Other MR MRCP [facility] [employer] Other MR MRCP [address] [place] [address] [employer] Other MR MRCP [address] [employer] Other MR MRCP MRI Report [facility] [employer] Other MR MRCP Signed [employer] Other MR MRCP Patient: Jose Alberto Saleem MR#: [id number] [place] [employer] Other MR MRCP 571 [employer] Other MR MRCP : 1965 Acct:[id number] [employer] Other MR MRCP Age/Sex: 57 / F ADM Date: 11/10/22 [employer] Other MR MRCP Loc: MR Room: Type: [facility] [employer] Other MR MRCP Attending Dr: Evert Bruno MD [employer] Other MR MRCP Copies to: Evert Bruno MD [employer] Other MR MRCP Ordering Provider: Evert Bruno MD [employer] Other MR MRCP Date of Service: 11/10/22 [employer] Other MR MRCP MR/MR MRCP: Abdominal pain;Common bile duct dilatation;Elevated liver en [employer] Other MR MRCP MRCP [employer] Other MR MRCP CLINICAL DATA: Elevated lipase. Abnormal outside abdominal CT [employer] Other MR MRCP COMPARISON: CT abdomen 10/16/2022 [employer] Other MR MRCP Multiecho imaging of the abdomen was performed along with radial imaging of the biliary tree. [employer] Other MR MRCP The gallbladder surgically absent. There is no significant intrahepatic biliary dilatation. The [employer] Other MR MRCP common duct is slightly prominent measuring up to 6 mm. It tapers toward the ampulla. No in [employer] Other MR MRCP traluminal filling defects are identified to suggest choledocholithiasis. The pancreatic duct is [employer] Other MR MRCP also borderline prominent measuring 2 - 3 mm. No intrahepatic masses are identified. No pancreatic [employer] Other MR MRCP abnormalities are noted. The spleen and adrenal glands are within normal limits. There is no [employer] Other MR MRCP hydronephrosis. Ther e are right renal cysts. There is no aortic aneurysm. No adenopathy or [employer] Other MR MRCP ascites is seen. There is no dilated bowel within the jvyrs-wy-kzyn. [employer] Other MR MRCP MR/MR MRCP [employer] Other MR MRCP IMPRESSION: [employer] Other MR MRCP SLIGHTLY PROMINENT COMMON DUCT, WITHOUT CHOLEDOCHOLITHIASIS. THIS MAY RELATE TO PREVIOUS [employer] Other MR MRCP CHOLECYSTECTOMY. [facility] [employer] Other MR MRCP RIGHT RENAL CYSTS. [employer] Other MR MRCP NO OTHER SIGNIFICANT MRI FINDINGS. [employer] Other MR MRCP Impression dictated by: Thelma Wick M.D.11/10/2022 7:00 PM [employer] Other MR MRCP Dictation Location: [address] [employer] Other MR MRCP Transcribed By: BEN 11/10/221899 [employer] Other MR MRCP Dictated By: Thelma Wick MD 11/10/221849 [employer] Other MR MRCP Signed By: [employer] Other MR MRCP 11/10/221899 [employer] Other Albumin [Mass/volume] in Ser um or PlasmaOrdered By: Evert Bruno on 11-01-2022 Albumin [Mass/Vol] 4.0 g/dL 3.2-5.5 [facility] Direct bilirubin measurement Ordered By: Imsara Bruno on 11-01-2022 Bilirubin.direct [Mass/Vol] 0.1 mg/dL 0.0-0.4 [facility] Globulin Calc (S) [Mass/Vol] Ordered By: Imsara Bruno on 11-01-2022 Globulin (S) [Mass/Vol] 2.5 g/dL [facility] Hepatic Panelon 11-01-2022 Albumin [Mass/Vol] 4.330017 g/dL Normal 3.2-5.5 g/dL N orth [employer] Other Bilirubin [Mass/Vol] 0.4220145 mg/dL Normal 0.3-1.2 mg /dL [place] [employer] Other Bilirubin.indirect [Mass/Vol] 0.9893323 mg/dL Normal 0.0-0.4 mg/dL [place] [employer] Other Protein [Mass/Vol] 6.351641 g/dL Normal 6.1-7.9 g/dL [facility] [employer] Other Hepatic Panel 0.5 mg/dL [employer] Other Hepatic Panel 2.5 g/dL [facility] [employer] Other Albumin [Mass/Vol] 4.0 g/dL Normal 3.2-5.5 [facility] Comment on above: Order Comment: Reaso n for Exam Elevated liver enzymes Performed By: #### H EPATIC #### [facility] [address] [place] [id number] [facility] Albumin/Globulin [Mass ratio] 1.6 {ratio} Normal [facility] Comment on above: Order Comment: Reaso n for Exam Elevated liver enzymes Performed By: #### H EPATIC #### [address] [address] [place] ALP [Catalytic activity/Vol] 93 U/L High 32-92 [facility] Comment on above: Order Comment: Reaso n for Exam Elevated liver enzymes Result Comment: PERF ORMED BY: [place] [address] PATHOLOGIST BOOMBOAT OPERATOR JULISSA GA M.D. Performed By: #### H EPATIC #### [facility] [address] [place] [address] [place] ALT [Catalytic activity/Vol] 94 U/L High 10-60 [facility] [employer] Other Comment on above: Order Comment: Reaso n for Exam Elevated liver enzymes Performed By: #### H EPATIC #### [facility] [address] [place] [id number] [facility] AST [Catalytic activity/Vol] 66 U/L High 10-42 [facility] Comment on above: Order Comment: Reaso n for Exam Elevated liver enzymes Performed By: #### H EPATIC #### [facility] [address] [place] [id number] [place] Bilirubin [Mass/Vol] 0.6 mg/dL Normal 0.3-1.2 [facility] Comment on above: Order Comment: Reaso n for Exam Elevated liver enzymes Performed By: #### H EPATIC #### [place] [address] [place] Bilirubin,Indirect 0.5 mg/dL Normal [facility] Comment on above: Order Comment: Reaso n for Exam Elevated liver enzymes Performed By: #### H EPATIC #### [address] Bilirubin.indirect [Mass/Vol] 0.1 mg/dL Normal 0.0-0.4 [facility] Comment on above: Order Comment: Reaso n for Exam Elevated liver enzymes Performed By: #### H EPATIC #### [place] [id number] [place] Globulin (S) [Mass/Vol] 2.5 g/dL Normal [facility] Comment on above: Order Comment: Reaso n for Exam Elevated liver enzymes Performed By: #### H EPATIC #### [place] [id number] [place] Protein [Mass/Vol] 6.5 g/dL Normal 6.1-7.9 [facility] Comment on above: Order Comment: Reaso n for Exam Elevated liver enzymes Performed By: #### H EPATIC #### [facility] [address] [place], [place] [id number] [place] Protein [Mass/volume] in Ser um or PlasmaOrdered By: Evert Bruno on 11-01-2022 Protein [Mass/Vol] 6.5 g/dL 6.1-7.9 [facility] Serum or plasma alanine li otransferase measurement without P-5'-P (enzymatic activiOrdered By: Evert Bruno on 11-01-2022 ALT No additional P-5'-P [Catalytic activity/Vol] 94 U/L 10-60 [facility] Serum or plasma albumin/glob ulin mass ratioOrdered By: [facility] on 11-01-2022 Albumin/Globulin [Mass ratio] 1.6 {ratio} [facility] Serum or plasma alkaline monster sphatase measurement (enzymatic activity/volume)Ordered By: [facility] on 11-01-2022 ALP [Catalytic activity/Vol] 93 U/L 32-92 [facility] Serum or plasma aspartate am inotransferase measurement (enzymatic activity/volume)Ordered By: [facility] on 11-01-2022 AST [Catalytic activity/Vol] 66 U/L 10-42 [facility] Serum or plasma non-glucuron idated bilirubin measurement (mass/volume)Ordered By: [facility] on 11-01-2022 Bilirubin.indirect [Mass/Vol] 0.5 mg/dL [facility] Serum or plasma total biliru bin measurement (mass/volume)Ordered By: [facility] on 11-01-2022 Bilirubin [Mass/Vol] 0.6 mg/dL 0.3-1.2 [facility] CT ABDOMEN WO/W CONon 2022 CT ABDOMEN [...] JAE WILSON Date: 2022-10-17 08:23 Normal [facility] AMMONIAon 10-09-2022 Ammonia (P) [Moles/Vol] 10 umol/L Critically low 11-32 [facility] Comment on above: Performed By: #### A MY #### [facility] [address] [place] [address] Dr. Ayden Cam AMYLASEon 10-09-2022 Amylase [Catalytic activity/Vol] 144 U/L Critically high 25-115 [facility] Comment on above: Performed By: #### L IPA #### [facility] [address] [place] [address] Dr. Ayden Cam CBC AUTO DIFFon 10-09-2022 BASO # 0.0 103/ul Normal 0.0-0.1 [facility] Comment on above: Performed By: #### C BC #### [facility] [address] [place] [address] Dr. Ayden Cam Basophils/100 WBC (Bld) 0.2 % Normal 0.2-2.0 [facility] Comment on above: Performed By: #### C BC #### [facility] [address] [place] [address] Dr. Ayden Cam EO # 0.2 103/ul Normal 0.0-0.7 [facility] Comment on above: Performed By: #### C BC #### [facility] [address] [place] [address] Dr. Ayden Cam Eosinophils/100 WBC (Bld) 3.3 % Normal 0.9-7.0 [facility] Comment on above: Performed By: #### C BC #### [facility] [address] [place] [address] Dr. Ayden Cam Erythrocyte distribution width (RBC) [Ratio] 12.1 % Normal 11.0-15.0 [facility] Comment on above: Performed By: #### C BC #### [facility] [address] [place] [address] [address] Ayden Cam Hematocrit (Bld) [Volume fraction] 40.0 % Normal 36.0-48.0 [facility] Comment on above: Performed By: #### C BC #### [facility] [address] [address] [address] Ayden Cam Hemoglobin (Bld) [Mass/Vol] 14.2 g/dL Normal 12.0-16.0 [facility] Comment on above: Performed By: #### C BC #### [facility] [address] [place] [address] [address] Ayden Cam IG # 0.01 10e3/ul Normal 0.00-0.03 [facility] Comment on above: Performed By: #### C BC #### [facility] [address] [place] [address] [address] Ayden Cam IG % 0.2 % Normal 0.0-0.5 [facility] Comment on above: Performed By: #### C BC #### [facility] [address] [place] [address] [address] Ayden Cam LYMPH # 1.5 103/ul Normal 1.2-3.8 [facility] Comment on above: Performed By: #### C BC #### [facility] [address] [place] [address] [address] Ayden Cam Lymphocytes/100 WBC (Bld) 24.2 % Normal 20.5-60.0 [facility] Comment on above: Performed By: #### C BC #### [facility] [address] [place] [address] Dr. Ayden Cam MANUAL DIFF REQ NO Normal [facility] Comment on above: Performed By: #### C BC #### [facility] [address] [place] [address] Dr. Ayden Cam MCH (RBC) [Entitic mass] 30.0 pg Normal 26.7-34.0 [facility] Comment on above: Performed By: #### C BC #### [facility] [address] [place] [address] [address] Ayden Cam MCHC (RBC) [Mass/Vol] 35.5 g/dL Critically high 29.9-35.2 [facility] Comment on above: Performed By: #### C BC #### [facility] [address] [place] [address] [address] Ayden Cam MCV (RBC) [Entitic vol] 84.4 fL Normal 81.0-99.0 [facility] Comment on above: Performed By: #### C BC #### [facility] [address] [place] [address] [address] Ayden Cam MONO # 0.6 103/ul Normal 0.3-0.8 [facility] Comment on above: Performed By: #### C BC #### [facility] [address] [place] [address] Dr. Ayden Cam Monocytes/100 WBC (Bld) 10.3 % Normal 1.7-12.0 [facility] Comment on above: Performed By: #### C BC #### [facility] [address] [place] [address] Dr. Ayden Cam NEUT # 3.7 103/ul Normal 1.4-6.5 [facility] Comment on above: Performed By: #### C BC #### [facility] [address] [place] [address] Dr. Ayden Cam Neutrophils/100 WBC (Bld) 61.8 % Normal 43.0-75.0 [facility] Comment on above: Performed By: #### C BC #### [facility] [address] [place] [address] [address] Ayedn Cam Platelet mean volume (Bld) [Entitic vol] 9.0 fL Critically low 9.5-13.5 [facility] Comment on above: Performed By: #### C BC #### [facility] [address] [place] [address] Dr. Ayden Cam PLT 191 103/ul Normal 150-450 [facility] Comment on above: Performed By: #### C BC #### [facility] [address] [place] [address] Dr. Ayden Cam RBC 4.74 106/ul Normal 4.20-5.40 [facility] Comment on above: Performed By: #### C BC #### [facility] [address] [place] [address] Dr. Ayden Cam WBC 6.0 103/ul Normal 4.0-11.0 [facility] Comment on above: Performed By: #### C BC #### [facility] [address] [place] [address] Dr. Ayden Cam LIPASEon 10-09-2022 Lipase [Catalytic activity/Vol] 168.0 U/L Normal 73.0-393.0 [facility] Comment on above: Performed By: #### L ACT #### [facility] [address] [place] [address] Dr. Ayden Cam PROF 14(COMP METB)on 023 Albumin [Mass/Vol] 3.6 g/dL Normal 3.4-5.0 [facility] Comment on above: Performed By: #### L IPA #### [facility] [address] [place] [address] Dr. Ayden Cam Albumin/Globulin [Mass ratio] 1.1 {ratio} Normal [facility] Comment on above: Performed By: #### L IPA #### [facility] [address] [place] [address] Dr. Ayden Cam ALP [Catalytic activity/Vol] 93 U/L Normal 46-116 [facility] Comment on above: Performed By: #### L IPA #### [facility] [address] [place] [address] Dr. Ayden Cam ALT [Catalytic activity/Vol] 52 U/L Normal 14-59 [facility] Comment on above: Performed By: #### L IPA #### [facility] [address] [place] [address] Dr. Ayden Cam Anion gap [Moles/Vol] 10.2 mmol/L Normal [facility] Comment on above: Performed By: #### L IPA #### [facility] [address] [place] [address] [address] Ayden Cam AST [Catalytic activity/Vol] 33 U/L Normal 15-37 [facility] Comment on above: Performed By: #### L IPA #### [facility] [address] [place] [address] [address] Ayden Cam Bilirubin [Mass/Vol] 0.3 mg/dL Normal 0.2-1.0 [facility] Comment on above: Performed By: #### L IPA #### [facility] [address] [address] [address] Ayden Cam Calcium [Mass/Vol] 9.4 mg/dL Normal 8.5-10.1 [facility] Comment on above: Performed By: #### L IPA #### [facility] [address] [place] [address] Dr. Ayden Cam Chloride [Moles/Vol] 99 mmol/L Normal 98-107 [facility] Comment on above: Performed By: #### L IPA #### [facility] [address] [place] [address] Dr. Ayden Cam CO2 [Moles/Vol] 33.7 mmol/L Critically high 21.0-32.0 [facility] Comment on above: Performed By: #### L IPA #### [facility] [address] [place] [address] Dr. Ayden Cam Creatinine [Mass/Vol] 0.62 mg/dL Normal 0.55-1.02 [facility] Comment on above: Performed By: #### L IPA #### [facility] [address] [place] [address] Dr. Ayden Cam EGFR-AF KITTITIAN >60 Normal >=60 [facility] Comment on above: Performed By: #### L IPA #### [facility] [address] [place] [address] Dr. Ayden Cam EGFR-NON AF KITTITIAN >60 Normal >=60 [facility] Comment on above: Performed By: #### L IPA #### [facility] [address] [place] [address] Dr. Ayden Cam Globulin (S) [Mass/Vol] 3.4 g/dL Normal [facility] Comment on above: Performed By: #### L IPA #### [facility] [address] [address] [address] Ayden Cam Glucose [Mass/Vol] 105 mg/dL Normal 74-106 [facility] Comment on above: Performed By: #### L IPA #### [facility] [address] [address] [address] Ayden Cam Potassium [Moles/Vol] 3.9 mmol/L Normal 3.5-5.1 [facility] Comment on above: Performed By: #### L IPA #### [facility] [address] [place] [address] [address] Ayden Cam Protein [Mass/Vol] 7.0 g/dL Normal 6.4-8.2 [facility] Comment on above: Performed By: #### L IPA #### [facility] [address] [address] [address] Ayden Cam Sodium [Moles/Vol] 139 mmol/L Normal 136-145 [facility] Comment on above: Performed By: #### L IPA #### [facility] [address] [place] [address] [address] Ayden Cam Urea nitrogen [Mass/Vol] 28.0 mg/dL Critically high 7.0-18.0 [facility] Comment on above: Performed By: #### L IPA #### [facility] [address] [address] [address] Ayden Cam Urea nitrogen/Creatinine [Mass ratio] 45.2 mg/mg Normal [facility] Comment on above: Performed By: #### L IPA #### [facility] [address] [address] [address] Ayden Cam AMMONIAon 10-06-2022 Ammonia (P) [Moles/Vol] 16 umol/L Normal 11-32 [facility] Comment on above: Performed By: #### A MM #### [facility] [address] [address] [address] Ayden Cam AMYLASEon 10-06-2022 Amylase [Catalytic activity/Vol] 189 U/L Critically high 25-115 [facility] Comment on above: Performed By: #### L IPA #### [facility] [address] [place] [address] Dr. Ayden Cam CBC AUTO DIFFon 10-06-2022 BASO # 0.0 103/ul Normal 0.0-0.1 [facility] Comment on above: Performed By: #### C BC #### [facility] [address] [place] [address] Dr. Ayden Cam Basophils/100 WBC (Bld) 0.2 % Normal 0.2-2.0 [facility] Comment on above: Performed By: #### C BC #### [facility] [address] [place] [address] Dr. Ayden Cam EO # 0.3 103/ul Normal 0.0-0.7 [facility] Comment on above: Performed By: #### C BC #### [facility] [address] [place] [address] Dr. Ayden Cam Eosinophils/100 WBC (Bld) 5.2 % Normal 0.9-7.0 [facility] Comment on above: Performed By: #### C BC #### [facility] [address] [place] [address] Dr. Ayden Cam Erythrocyte distribution width (RBC) [Ratio] 12.3 % Normal 11.0-15.0 [facility] Comment on above: Performed By: #### C BC #### [facility] [address] [place] [address] Dr. Ayden Cam Hematocrit (Bld) [Volume fraction] 36.9 % Normal 36.0-48.0 [facility] Comment on above: Performed By: #### C BC #### [facility] [address] [place] [address] Dr. Ayden Cam Hemoglobin (Bld) [Mass/Vol] 12.4 g/dL Normal 12.0-16.0 [facility] Comment on above: Performed By: #### C BC #### [facility] [address] [place] [address] Dr. Ayden Cam IG # 0.01 10e3/ul Normal 0.00-0.03 [facility] Comment on above: Performed By: #### C BC #### [facility] [address] [place] [address] Dr. Ayden Cam IG % 0.2 % Normal 0.0-0.5 [facility] Comment on above: Performed By: #### C BC #### [facility] [address] [place] [address] Dr. Ayden Cam LYMPH # 1.8 103/ul Normal 1.2-3.8 [facility] Comment on above: Performed By: #### C BC #### [facility] [address] [place] [address] Dr. Ayden Cam Lymphocytes/100 WBC (Bld) 31.3 % Normal 20.5-60.0 [facility] Comment on above: Performed By: #### C BC #### [facility] [address] [place] [address] Dr. Ayden Cam MANUAL DIFF REQ NO Normal [facility] Comment on above: Performed By: #### C BC #### [facility] [address] [place] [address] Dr. Ayden Cam MCH (RBC) [Entitic mass] 30.0 pg Normal 26.7-34.0 [facility] Comment on above: Performed By: #### C BC #### [facility] [address] [place] [address] Dr. Ayden Cam MCHC (RBC) [Mass/Vol] 33.6 g/dL Normal 29.9-35.2 [facility] Comment on above: Performed By: #### C BC #### [facility] [address] [place] [address] Dr. Ayden Cam MCV (RBC) [Entitic vol] 89.1 fL Normal 81.0-99.0 [facility] Comment on above: Performed By: #### C BC #### [facility] [address] [place] [address] Dr. Ayden Cam MONO # 0.6 103/ul Normal 0.3-0.8 [facility] Comment on above: Performed By: #### C BC #### [facility] [address] [place] [address] Dr. Ayden Cam Monocytes/100 WBC (Bld) 10.1 % Normal 1.7-12.0 [facility] Comment on above: Performed By: #### C BC #### [facility] [address] [address] [address] Ayden Cam NEUT # 3.1 103/ul Normal 1.4-6.5 [facility] Comment on above: Performed By: #### C BC #### [facility] [address] [place] [address] Dr. Ayden Cam Neutrophils/100 WBC (Bld) 53.0 % Normal 43.0-75.0 [facility] Comment on above: Performed By: #### C BC #### [facility] [address] [place] [address] Dr. Ayden Cam Platelet mean volume (Bld) [Entitic vol] 9.4 fL Critically low 9.5-13.5 [facility] Comment on above: Performed By: #### C BC #### [facility] [address] [place] [address] Dr. Ayden Cam PLT 153 103/ul Normal 150-450 [facility] Comment on above: Performed By: #### C BC #### [facility] [address] [place] [address] Dr. Ayden Cam RBC 4.14 106/ul Critically low 4.20-5.40 [facility] Comment on above: Performed By: #### C BC #### [facility] [address] [place] [address] Dr. Ayden Cam WBC 5.8 103/ul Normal 4.0-11.0 [facility] Comment on above: Performed By: #### C BC #### [facility] [address] [place] [address] Dr. Ayden Cam LIPASEon 10-06-2022 Lipase [Catalytic activity/Vol] 166.0 U/L Normal 73.0-393.0 [facility] Comment on above: Performed By: #### L IPA #### [facility] [address] [address] [address] Ayden Cam LIVER PROFILEon 10-06-2022 Albumin [Mass/Vol] 3.2 g/dL Critically low 3.4-5.0 Th e [facility] Comment on above: Performed By: #### L IPA #### [facility] [address] [place] [address] Dr. Ayden Cam Albumin/Globulin [Mass ratio] 1.3 {ratio} Normal [facility] Comment on above: Performed By: #### L IPA #### [facility] [address] [place] [address] Dr. Ayden Cam ALP [Catalytic activity/Vol] 88 U/L Normal 46-116 [facility] Comment on above: Performed By: #### L IPA #### [facility] [address] [place] [address] Dr. Ayden Cam ALT [Catalytic activity/Vol] 66 U/L Critically high 14-59 [facility] Comment on above: Performed By: #### L IPA #### [facility] [address] [place] [address] Dr. Ayden Cam AST [Catalytic activity/Vol] 39 U/L Critically high 15-37 [facility] Comment on above: Performed By: #### L IPA #### [facility] [address] [place] [address] Dr. Ayden Cam BILI, CONJUGATED 0.1 mg/dL Normal 0.0-0.2 [facility] Comment on above: Performed By: #### L IPA #### [facility] [address] [place] [address] Dr. Ayden Cam Bilirubin [Mass/Vol] 0.4 mg/dL Normal 0.2-1.0 [facility] Comment on above: Performed By: #### L IPA #### [facility] [address] [place] [address] Dr. Ayden Cam Globulin (S) [Mass/Vol] 2.4 g/dL Normal [facility] Comment on above: Performed By: #### L IPA #### [facility] [address] [address] [address] Ayden Cam Protein [Mass/Vol] 5.6 g/dL Critically low 6.4-8.2 [facility] Comment on above: Performed By: #### L IPA #### [facility] [address] [place] [address] Dr. Ayden Cam PROF CHEM 8 (BAS METB)on Anion gap [Moles/Vol] 6.8 mmol/L Normal [facility] Comment on above: Performed By: #### L IPA #### [facility] [address] [address] [address] Ayden Cam Calcium [Mass/Vol] 8.6 mg/dL Normal 8.5-10.1 [facility] Comment on above: Performed By: #### L IPA #### [facility] [address] [place] [address] Dr. Ayden Cam Chloride [Moles/Vol] 102 mmol/L Normal 98-107 [facility] Comment on above: Performed By: #### L IPA #### [facility] [address] [address] [address] Ayden Cam CO2 [Moles/Vol] 32.6 mmol/L Critically high 21.0-32.0 [facility] Comment on above: Performed By: #### L IPA #### [facility] [address] [place] [address] Dr. Ayden Cam Creatinine [Mass/Vol] 0.61 mg/dL Normal 0.55-1.02 [facility] Comment on above: Performed By: #### L IPA #### [facility] [address] [place] [address] Dr. Ayden Cam EGFR-AF KITTITIAN >60 Normal >=60 [facility] Comment on above: Performed By: #### L IPA #### [facility] [address] [place] [address] Dr. Ayden Cam EGFR-NON AF KITTITIAN >60 Normal >=60 [facility] Comment on above: Performed By: #### L IPA #### [facility] [address] [address] [address] Ayden Cam Glucose [Mass/Vol] 91 mg/dL Normal 74-106 [facility] Comment on above: Performed By: #### L IPA #### [facility] [address] [address] [address] Ayden Cam Potassium [Moles/Vol] 3.4 mmol/L Critically low 3.5-5.1 [facility] Comment on above: Performed By: #### L IPA #### [facility] [address] [address] [address] Ayden Cam Sodium [Moles/Vol] 138 mmol/L Normal 136-145 [facility] Comment on above: Performed By: #### L IPA #### [facility] [address] [address] [address] Ayden Cam Urea nitrogen [Mass/Vol] 13.0 mg/dL Normal 7.0-18.0 [facility] Comment on above: Performed By: #### L IPA #### [facility] [address] [address] [address] Ayden Cam Urea nitrogen/Creatinine [Mass ratio] 21.3 mg/mg Normal [facility] Comment on above: Performed By: #### L IPA #### [facility] [address] [address] [address] Ayden Cam AMMONIAon 10-05-2022 Ammonia (P) [Moles/Vol] 10 umol/L Critically low 11-32 [facility] Comment on above: Performed By: #### A MM #### [facility] [address] [address] [address] Ayden Cam AMYLASEon 10-05-2022 Amylase [Catalytic activity/Vol] 109 U/L Normal 25-115 [facility] Comment on above: Performed By: #### A MY #### [facility] [address] [address] [address] Ayden Cam CBC AUTO DIFFon 10-05-2022 BASO # 0.0 103/ul Normal 0.0-0.1 [facility] Comment on above: Performed By: #### L IPA #### [facility] [address] [address] [address] Ayden Cam Basophils/100 WBC (Bld) 0.3 % Normal 0.2-2.0 [facility] Comment on above: Performed By: #### L IPA #### [facility] [address] [address] [address] Ayden Cam EO # 0.3 103/ul Normal 0.0-0.7 [facility] Comment on above: Performed By: #### L IPA #### [facility] [address] [address] [address] Ayden Cam Eosinophils/100 WBC (Bld) 4.3 % Normal 0.9-7.0 [facility] Comment on above: Performed By: #### L IPA #### [facility] [address] [place] [address] Dr. Ayden Cam Erythrocyte distribution width (RBC) [Ratio] 12.2 % Normal 11.0-15.0 [facility] Comment on above: Performed By: #### L IPA #### [facility] [address] [address] [address] Ayden Cam Hematocrit (Bld) [Volume fraction] 38.9 % Normal 36.0-48.0 [facility] Comment on above: Performed By: #### L IPA #### [facility] [address] [address] [address] Ayden Cam Hemoglobin (Bld) [Mass/Vol] 12.8 g/dL Normal 12.0-16.0 [facility] Comment on above: Performed By: #### L IPA #### [facility] [address] [address] [address] Ayden Cam IG # 0.01 10e3/ul Normal 0.00-0.03 [facility] Comment on above: Performed By: #### L IPA #### [facility] [address] [address] [address] Ayden Cam IG % 0.2 % Normal 0.0-0.5 [facility] Comment on above: Performed By: #### L IPA #### [facility] [address] [place] [address] Dr. Ayden Cam LYMPH # 1.9 103/ul Normal 1.2-3.8 [facility] Comment on above: Performed By: #### L IPA #### [facility] [address] [place] [address] Dr. Ayden Cam Lymphocytes/100 WBC (Bld) 31.4 % Normal 20.5-60.0 [facility] Comment on above: Performed By: #### L IPA #### [facility] [address] [place] [address] Dr. Ayden Cam MANUAL DIFF REQ NO Normal [facility] Comment on above: Performed By: #### L IPA #### [facility] [address] [place] [address] Dr. Ayden Cam MCH (RBC) [Entitic mass] 29.6 pg Normal 26.7-34.0 [facility] Comment on above: Performed By: #### L IPA #### [facility] [address] [place] [address] Dr. Ayden Cam MCHC (RBC) [Mass/Vol] 32.9 g/dL Normal 29.9-35.2 [facility] Comment on above: Performed By: #### L IPA #### [facility] [address] [place] [address] Dr. Ayden Cam MCV (RBC) [Entitic vol] 89.8 fL Normal 81.0-99.0 [facility] Comment on above: Performed By: #### L IPA #### [facility] [address] [place] [address] Dr. Ayden Cam MONO # 0.6 103/ul Normal 0.3-0.8 [facility] Comment on above: Performed By: #### L IPA #### [facility] [address] [place] [address] Dr. Ayden Cam Monocytes/100 WBC (Bld) 10.1 % Normal 1.7-12.0 [facility] Comment on above: Performed By: #### L IPA #### [facility] [address] [place] [address] Dr. Ayden Cam NEUT # 3.2 103/ul Normal 1.4-6.5 [facility] Comment on above: Performed By: #### L IPA #### [facility] [address] [place] [address] Dr. Ayden Cam Neutrophils/100 WBC (Bld) 53.7 % Normal 43.0-75.0 [facility] Comment on above: Performed By: #### L IPA #### [facility] [address] [place] [address] Dr. Ayden Cam Platelet mean volume (Bld) [Entitic vol] 9.7 fL Normal 9.5-13.5 [facility] Comment on above: Performed By: #### L IPA #### [facility] [address] [place] [address] Dr. Ayden Cam PLT 168 103/ul Normal 150-450 [facility] Comment on above: Performed By: #### L IPA #### [facility] [address] [place] [address] Dr. Ayden Cam RBC 4.33 106/ul Normal 4.20-5.40 [facility] Comment on above: Performed By: #### L IPA #### [facility] [address] [place] [address] Dr. Ayden Cam WBC 6.0 103/ul Normal 4.0-11.0 [facility] Comment on above: Performed By: #### L IPA #### [facility] [address] [place] [address] Dr. Ayden Cam LIPASEon 10-05-2022 Lipase [Catalytic activity/Vol] 151.0 U/L Normal 73.0-393.0 [facility] Comment on above: Performed By: #### L IPA #### [facility] [address] [place] [address] Dr. Ayden Cam LIVER PROFILEon 10-05-2022 Albumin [Mass/Vol] 3.2 g/dL Critically low 3.4-5.0 [facility] Comment on above: Performed By: #### L ACT #### [facility] [address] [address] [address] Ayden Cam Albumin/Globulin [Mass ratio] 1.1 {ratio} Normal [facility] Comment on above: Performed By: #### L ACT #### [facility] [address] [address] [address] Ayden Cam ALP [Catalytic activity/Vol] 82 U/L Normal 46-116 [facility] Comment on above: Performed By: #### L ACT #### [facility] [address] [address] [address] Ayden Cam ALT [Catalytic activity/Vol] 70 U/L Critically high 14-59 [facility] Comment on above: Performed By: #### L ACT #### [facility] [address] [place] [address] Dr. Ayden Cam AST [Catalytic activity/Vol] 36 U/L Normal 15-37 [facility] Comment on above: Performed By: #### L ACT #### [facility] [address] [place] [address] Dr. Ayden Cam BILI, CONJUGATED 0.1 mg/dL Normal 0.0-0.2 [facility] Comment on above: Performed By: #### L ACT #### [facility] [address] [place] [address] Dr. Ayden Cam Bilirubin [Mass/Vol] 0.3 mg/dL Normal 0.2-1.0 [facility] Comment on above: Performed By: #### L ACT #### [facility] [address] [place] [address] Dr. Ayden Cam Globulin (S) [Mass/Vol] 3.0 g/dL Normal [facility] Comment on above: Performed By: #### L ACT #### [facility] [address] [place] [address] Dr. Ayden Cam Protein [Mass/Vol] 6.2 g/dL Critically low 6.4-8.2 [facility] Comment on above: Performed By: #### L ACT #### [facility] [address] [place] [address] Dr. Ayden Cam PROF CHEM 8 (BAS METB)on Anion gap [Moles/Vol] 9.5 mmol/L Normal [facility] Comment on above: Performed By: #### B MP #### [facility] [address] [address] [address] Ayden Cam Calcium [Mass/Vol] 8.9 mg/dL Normal 8.5-10.1 [facility] Comment on above: Performed By: #### B MP #### [facility] [address] [address] [address] Ayden Cam Chloride [Moles/Vol] 105 mmol/L Normal 98-107 [facility] Comment on above: Performed By: #### B MP #### [facility] [address] [place] [address] Dr. Ayden Cam CO2 [Moles/Vol] 29.6 mmol/L Normal 21.0-32.0 [facility] Comment on above: Performed By: #### B MP #### [facility] [address] [address] [address] Ayden Cam Creatinine [Mass/Vol] 0.56 mg/dL Normal 0.55-1.02 [facility] Comment on above: Performed By: #### B MP #### [facility] [address] [place] [address] Dr. Ayden Cam EGFR-AF KITTITIAN >60 Normal >=60 [facility] Comment on above: Performed By: #### B MP #### [facility] [address] [address] [address] Ayden Cam EGFR-NON AF KITTITIAN >60 Normal >=60 [facility] Comment on above: Performed By: #### B MP #### [facility] [address] [place] [address] Dr. Ayden Cam Glucose [Mass/Vol] 88 mg/dL Normal 74-106 [facility] Comment on above: Performed By: #### B MP #### [facility] [address] [address] [address] Ayden Cam Potassium [Moles/Vol] 4.1 mmol/L Normal 3.5-5.1 [facility] Comment on above: Performed By: #### B MP #### [facility] [address] [address] [address] Ayden Cam Sodium [Moles/Vol] 140 mmol/L Normal 136-145 [facility] Comment on above: Performed By: #### B MP #### [facility] [address] [id number] [address] Ayden Cam Urea nitrogen [Mass/Vol] 15.0 mg/dL Normal 7.0-18.0 [facility] Comment on above: Performed By: #### B MP #### [facility] [address] [address] [address] Ayden Cam Urea nitrogen/Creatinine [Mass ratio] 26.8 mg/mg Normal [facility] Comment on above: Performed By: #### B MP #### [facility] [address] [place] [address] Dr. Ayden Cam US Jhony 10-05-2022 US [...] RONAN TORIBIO Date: 2022-10-05 09:52 Normal [facility] XR KUB 1 VIEWon 10-05-2022 XR KUB [...] RONAN TORIBIO Date: 2022-10-05 09:55 Normal [facility] AMYLASEon 10-04-2022 Amylase [Catalytic activity/Vol] 124 U/L Critically high 25-115 [facility] Comment on above: Performed By: #### L IPACOLE, CMP #### [facility] [address] [place] [address] Dr. Ayden Cam CBC AUTO DIFFon 10-04-2022 BASO # 0.0 103/ul Normal 0.0-0.1 [facility] Comment on above: Performed By: #### L IPA #### [facility] [address] [address] [address] Ayden Cam Basophils/100 WBC (Bld) 0.3 % Normal 0.2-2.0 [facility] Comment on above: Performed By: #### L IPA #### [facility] [address] [place] [address] Dr. Ayden Cam EO # 0.2 103/ul Normal 0.0-0.7 [facility] Comment on above: Performed By: #### L IPA #### [facility] [address] [address] [address] Ayden Cam Eosinophils/100 WBC (Bld) 2.9 % Normal 0.9-7.0 [facility] Comment on above: Performed By: #### L IPA #### [facility] [address] [place] [address] Dr. Ayden Cam Erythrocyte distribution width (RBC) [Ratio] 12.3 % Normal 11.0-15.0 [facility] Comment on above: Performed By: #### L IPA #### [facility] [address] [place] [address] Dr. Ayden Cam Hematocrit (Bld) [Volume fraction] 42.0 % Normal 36.0-48.0 [facility] Comment on above: Performed By: #### L IPA #### [facility] [address] [place] [address] Dr. Ayden Cam Hemoglobin (Bld) [Mass/Vol] 14.3 g/dL Normal 12.0-16.0 [facility] Comment on above: Performed By: #### L IPA #### [facility] [address] [place] [address] Dr. Ayden Cam IG # 0.02 10e3/ul Normal 0.00-0.03 [facility] Comment on above: Performed By: #### L IPA #### [facility] [address] [place] [address] Dr. Ayden Cam IG % 0.3 % Normal 0.0-0.5 [facility] Comment on above: Performed By: #### L IPA #### [facility] [address] [place] [address] Dr. Ayden Cam LYMPH # 1.7 103/ul Normal 1.2-3.8 [facility] Comment on above: Performed By: #### L IPA #### [facility] [address] [place] [address] Dr. Ayden Cam Lymphocytes/100 WBC (Bld) 22.5 % Normal 20.5-60.0 [facility] Comment on above: Performed By: #### L IPA #### [facility] [address] [place] [address] Dr. Ayden Cam MANUAL DIFF REQ NO Normal [facility] Comment on above: Performed By: #### L IPA #### [facility] [address] [place] [address] Dr. Ayden Cam MCH (RBC) [Entitic mass] 30.1 pg Normal 26.7-34.0 [facility] Comment on above: Performed By: #### L IPA #### [facility] [address] [place] [address] Dr. Ayden Cam MCHC (RBC) [Mass/Vol] 34.0 g/dL Normal 29.9-35.2 [facility] Comment on above: Performed By: #### L IPA #### [facility] [address] [place] [address] Dr. Ayedn Cam MCV (RBC) [Entitic vol] 88.4 fL Normal 81.0-99.0 [facility] Comment on above: Performed By: #### L IPA #### [facility] [address] [place] [address] Dr. Ayden Cam MONO # 0.5 103/ul Normal 0.3-0.8 [facility] Comment on above: Performed By: #### L IPA #### [facility] [address] [place] [address] Dr. Ayden Cam Monocytes/100 WBC (Bld) 6.0 % Normal 1.7-12.0 [facility] Comment on above: Performed By: #### L IPA #### [facility] [address] [place] [address] Dr. Ayden Cam NEUT # 5.2 103/ul Normal 1.4-6.5 [facility] Comment on above: Performed By: #### L IPA #### [facility] [address] [place] [address] Dr. yAden Cam Neutrophils/100 WBC (Bld) 68.0 % Normal 43.0-75.0 [facility] Comment on above: Performed By: #### L IPA #### [facility] [address] [place] [address] Dr. Ayden Cam Platelet mean volume (Bld) [Entitic vol] 9.6 fL Normal 9.5-13.5 [facility] Comment on above: Performed By: #### L IPA #### [facility] [address] [place] [address] Dr. Ayden Cam PLT 183 103/ul Normal 150-450 [facility] Comment on above: Performed By: #### L IPA #### [facility] [address] [place] [address] Dr. Ayden Cam RBC 4.75 106/ul Normal 4.20-5.40 [facility] Comment on above: Performed By: #### L IPA #### [facility] [address] [place] [address] Dr. Ayden Cam WBC 7.6 103/ul Normal 4.0-11.0 [facility] Comment on above: Performed By: #### L IPA #### [facility] [address] [place] [address] Dr. Ayden Cam Covid-19 PCR ([facility])on SARS-CoV-2 (COVID-19) RNA LOWELL+probe Ql (Unsp spec) Not detected Normal NOT DETECTED [facility] Comment on above: Result Comment: When diagnostic [...] for this test is supported by the [place] of Health and Human Service's declaration that [...] used). Performed By: #### L IPA #### [facility] [address] [place] [address] Dr. Ayden Cam ER URINE PROFILEon 3 Bilirubin Ql (U) Negative Normal NEGATIVE [facility] Comment on above: Performed By: #### L ACT #### [facility] [address] [place] [address] Dr. Ayedn Cam Clarity (U) CLEAR Normal CLEAR [facility] Comment on above: Performed By: #### L ACT #### [facility] [address] [place] [address] Dr. Ayden Cam Color (U) LT. YELLOW Normal YELLOW [facility] Comment on above: Performed By: #### L ACT #### [facility] [address] [place] [address] Dr. Ayden SANTANA A micrscopic examination will be performed if indicated. Normal [facility] Comment on above: Performed By: #### L ACT #### [facility] [address] [place] [address] Dr. Ayden Cam Glucose Ql (U) Negative Normal NEGATIVE [facility] Comment on above: Performed By: #### L ACT #### [facility] [address] [place] [address] Dr. Ayden Cam Hemoglobin Ql (U) Negative Normal NEGATIVE [facility] Comment on above: Performed By: #### L ACT #### [facility] [address] [place] [address] Dr. Ayden Cam Ketones Ql (U) Negative Normal NEGATIVE [facility] Comment on above: Performed By: #### L ACT #### [facility] [address] [place] [address] Dr. Ayden Cam LEUKOCYTES Negative Normal NEGATIVE [facility] Comment on above: Performed By: #### L ACT #### [facility] [address] [place] [address] Dr. Ayden Cam Nitrite Ql (U) Negative Normal NEGATIVE [facility] Comment on above: Performed By: #### L ACT #### [facility] [address] [place] [address] Dr. Ayden Cam pH (U) 8.5 [pH] Normal 5-9 [facility] Comment on above: Performed By: #### L ACT #### [facility] [address] [place] [address] Dr. Ayden Cam SPEC GRAVITY 1.015 Normal 1.005-<=1.025 [facility] Comment on above: Performed By: #### L ACT #### [facility] [address] [place] [address] Dr. Ayden Cam UA PROTEIN Negative Normal NEGATIVE/ TRACE [facility] Comment on above: Performed By: #### L ACT #### [facility] [address] [place] [address] Dr. Ayden Cam UR MICRO IND NOT INDICATED Normal [facility] Comment on above: Performed By: #### L ACT #### [facility] [address] [place] [address] Dr. Ayden Cam Urobilinogen Qn (U) 0.2 {Peggy'U}/dL Normal 0.2 - 1. 0 [facility] Comment on above: Performed By: #### L ACT #### [facility] [address] [place] [address] Dr. Ayden Cam LACTATE/LACTIC ACIDon 2022 Lactate [Moles/Vol] 0.8 mmol/L Normal 0.4-1.9 [facility] Comment on above: Performed By: #### L ACT #### [facility] [address] [place] [address] Dr. Ayden Cam LIPASEon 10-04-2022 Lipase [Catalytic activity/Vol] 170.0 U/L Normal 73.0-393.0 [facility] Comment on above: Performed By: #### L ACT #### [facility] [address] [place] [address] Dr. Ayden Cam PROF 14(COMP METB)on 023 Albumin [Mass/Vol] 3.8 g/dL Normal 3.4-5.0 [facility] Comment on above: Performed By: #### L ACT #### [facility] [address] [place] [address] Dr. Ayden Cam Albumin/Globulin [Mass ratio] 1.1 {ratio} Normal [facility] Comment on above: Performed By: #### L ACT #### [facility] [address] [place] [address] Dr. Ayden Cam ALP [Catalytic activity/Vol] 101 U/L Normal 46-116 [facility] [facility] Comment on above: Performed By: #### L ACT #### [facility] [address] [place] [address] Dr. Ayden Cam ALT [Catalytic activity/Vol] 94 U/L Critically high 14-59 [facility] Comment on above: Performed By: #### L ACT #### [facility] [address] [address] [address] Ayden Cam Anion gap [Moles/Vol] 11.1 mmol/L Normal Th e [facility] Comment on above: Performed By: #### L ACT #### [facility] [address] [address] [address] Ayden Cam AST [Catalytic activity/Vol] 59 U/L Critically high 15-37 [facility] Comment on above: Performed By: #### L ACT #### [facility] [address] [address] [address] Ayden Cam Bilirubin [Mass/Vol] 0.3 mg/dL Normal 0.2-1.0 [facility] Comment on above: Performed By: #### L ACT #### [facility] [address] [address] [address] Ayden Cam Calcium [Mass/Vol] 9.5 mg/dL Normal 8.5-10.1 [facility] Comment on above: Performed By: #### L ACT #### [facility] [address] [address] [address] Ayden Cam Chloride [Moles/Vol] 99 mmol/L Normal 98-107 [facility] Comment on above: Performed By: #### L ACT #### [facility] [address] [address] [address] Ayden Cam CO2 [Moles/Vol] 29.7 mmol/L Normal 21.0-32.0 [facility] Comment on above: Performed By: #### L ACT #### [facility] [address] [address] [address] Ayden Cam Creatinine [Mass/Vol] 0.61 mg/dL Normal 0.55-1.02 [facility] Comment on above: Performed By: #### L ACT #### [facility] [address] [address] [address] Ayden Cam EGFR-AF KITTITIAN >60 Normal >=60 [facility] Comment on above: Performed By: #### L ACT #### [facility] [address] [address] [address] Ayden Cam EGFR-NON AF KITTITIAN >60 Normal >=60 [facility] Comment on above: Performed By: #### L ACT #### [facility] [address] [address] [address] Ayden Cam Globulin (S) [Mass/Vol] 3.4 g/dL Normal [facility] Comment on above: Performed By: #### L ACT #### [facility] [address] [address] [address] Ayden Cam Glucose [Mass/Vol] 111 mg/dL Critically high 74-106 [facility] Comment on above: Performed By: #### L ACT #### [facility] [address] [address] [address] Ayden Cam Potassium [Moles/Vol] 3.8 mmol/L Normal 3.5-5.1 [facility] Comment on above: Performed By: #### L ACT #### [facility] [address] [address] [address] Ayden Cam Protein [Mass/Vol] 7.2 g/dL Normal 6.4-8.2 [facility] Comment on above: Performed By: #### L ACT #### [facility] [address] [address] [address] Ayden Cam Sodium [Moles/Vol] 136 mmol/L Normal 136-145 [facility] Comment on above: Performed By: #### L ACT #### [facility] [address] [address] [address] Ayden Cam Urea nitrogen [Mass/Vol] 23.0 mg/dL Critically high 7.0-18.0 [facility] Comment on above: Performed By: #### L ACT #### [facility] [address] [address] [address] Ayden Cam Urea nitrogen/Creatinine [Mass ratio] 37.7 mg/mg Normal [facility] Comment on above: Performed By: #### L ACT #### [facility] [address] [address] [address] Ayden Cam TROPONIN, HIGH SENSITIVITYon 10-04-2022 HSTROP 8.9 pg/mL Normal 4.0-51.3 [facility] Comment on above: Result Comment: CUT- OFF POINTS HAVE BEEN ESTABLISHED BASED ON THE FOURTH UNIVERSAL DEFINITIONS OF MYOCARDIAL INFARCTION. THE UPPER REFERENCE LIMIT (URL) OF TROPONIN, DEFINED THE 99TH PERCENTILE OF cTnI DISTRIBUTION IN A REFERENCE POPULATION, HAS BEEN CONFIRMED THE DECISION THRESHOLD FOR NC DIAGNOSIS. Performed By: #### L ACT #### [facility] [address] [place] [address] Dr. Ayden Cam LIPID PROFILEon 09-19-2022 CHOL-HDL RATIO NORM SEE BELOW Normal [facility] Comment on above: Result Comment: 3.3 - 4.4 LOW RISK 4.4 - 7.1 AVERAGE RISK 7.1 - 11.0 MODERATE RISK >11.0 HIGH RISK Performed By: #### L IPA #### [facility] [address] [place] [address] Dr. Ayden Cam Cholesterol [Mass/Vol] 116 mg/dL Normal <=200 [facility] Comment on above: Performed By: #### L IPA #### [facility] [address] [place] [address] Dr. Ayden Cam Cholesterol in HDL [Mass/Vol] 59 mg/dL Normal 40-60 [facility] Comment on above: Performed By: #### L IPA #### [facility] [address] [address] [address] Ayden Cam Cholesterol in LDL [Mass/Vol] 34.0 mg/dL Normal [facility] Comment on above: Performed By: #### L IPA #### [facility] [address] [address] [address] Ayden Cam Cholesterol.total/Cho lesterol in HDL [Mass ratio] 2.0 {ratio} Normal [facility] Comment on above: Performed By: #### L IPA #### [facility] [address] [place] [address] Dr. Ayden Cam HDL NORMAL > or = 60 mg/dl - LO W CARDIOVASCULAR RISK <40 mg/dl - HIGH CARDIOVASCULAR RISK Normal [facility] Comment on above: Performed By: #### L IPA #### [facility] [address] [address] [address] Ayden Cam LDL CALC NORMAL SEE BELOW Normal [facility] Comment on above: Result Comment: <100 mg/dl OPTIMAL 100 - 129 mg/dl NEAR OR ABOVE OPTIMAL 130 - 159 mg/dl BORDERLINE HIGH 160 - 189 mg/dl HIGH >190 mg/dl VERY HIGH Performed By: #### L IPA #### [facility] [address] [address] [address] Ayden Cam Triglyceride [Mass/Vol] 115 mg/dL Normal <=150 [facility] Comment on above: Performed By: #### L IPA #### [facility] [address] [place] [address] Dr. Ayden Cam VLDL CALC 23.0 mg/dL Normal [facility] Comment on above: Performed By: #### L IPA #### [facility] [address] [address] [address] Ayden Cam VITAMIN D 25 OHon 09-19-2022 VIT D 25-OH 89.3 ng/mL Normal [facility] Comment on above: Performed By: #### V ITAD #### [facility] [address] [address] [address] Ayden Cam VIT D RANGES SEE BELOW Normal [facility] Comment on above: Result Comment: <20 ng/mL Vit D deficient 20 - <30 ng/mL Vit D insufficient 30 - 100 ng/mL Vit D sufficient >100 ng/mL Potential Toxicity Performed By: #### V ITAD #### [facility] [address] [place] [address] Dr. Ayden Cam Office Visit (Cardiology)on 08-15-2022 Follow-up visit Diagnoses/Problems Assessed Atherosclerosis of coronary artery of [place] heart without angina pectoris (414.01) (I25.10) History of coronary artery bypass graft (V45.81) (Z95.1) Ischemic cardiomyopathy (414.8) (I25.5) Hyperlipidemia (272.4) (E78.5) Essential hypertension, benign (401.1) (I10) Never a smoker Overweight with body mass index (BMI) of 26 to 26.9 in adult (278.02,V85.22) (E66.3,Z68.26) Paroxysmal SVT (supraventricular tachycardia) (427.0) (I47.1) Orders Atherosclerosis of coronary artery of [place] heart without angina pectoris, Essential hypertension, benign, Hyperlipidemia Basic Metabolic Panel; Status:Active - Retrospective Authorization; Requested for:[id number]; Lipid Panel; Status:Active - Retrospective Authorization; Requested for:[id number]; Overweight with body mass index (BMI) of 26 to 26.9 in adult Healthy Weight Tips; Status:Complete - Retrospective Authorization; Done: [id number] Some eating tips that can help you lose weight.; Status:Complete - Retrospective Authorization; Done: [id number] SocHx: Never a smoker Tobacco Use Screening; Status:Complete; Done: [id number] Patient Instructions Please bring all medicines, vitamins, [...] She has a history of prior inferior NC, prior PCI with subsequent three-vessel CABG and [...] CHEST PAIN.CALL 911 IF PAIN PERSISTS. Nyamyc [id number] UNIT/GM External Powderapply topically to affected area [...] no s (more content not included)... Normal [employer] Tobacco Screening.on Adult depression screening assessment No [facility] 250 DO Work Phone: Fall risk assessment a) No falls within the last year [facility] 250 DO Work Phone: Tobacco use status CP b) No [facility] 250 DO Work Phone: MRI Ankle w/o [...] Wilder Arango on 08/01/2022 1102 Normal [facility] [employer] Tobacco Screening.on Tobacco use status CPHS b) No [facility] 250 DO Work Phone: Vital Signs Date Time Vital Sign Value Performing Clinician Facility 04-10-2024 15:08-0400 Blood Pressure Location JENNIFER MARTINO [facility] 04-10-2024 15:08-0400 Diastolic blood pressure 80 mm[Hg] [place] [facility] 04-10-2024 15:08-0400 Heart rate 75 /min [place] [facility] 04-10-2024 15:08-0400 Respiratory rate 16 /min [place] [facility] 04-10-2024 15:08-0400 Systolic blood pressure 131 mm[Hg] JENNIFER MARTINO [facility] 08-14-2023 15:29-0500 Body height 161.3 cm Celso Garibay DO Work Phone: [facility] 08-14-2023 15:29-0500 Body mass index (BMI) [Ratio] 28.07 kg/m2 Celso Garibay DO Work Phone: [facility] 08-14-2023 15:29-0500 Body weight 73.03 kg Celso Garibay DO Work Phone: [facility] 08-14-2023 15:29-0500 Diastolic blood pressure 80 mm[Hg] Celso Garibay DO Work Phone: [facility] 08-14-2023 15:29-0500 Heart rate 56 /min Celso Garibay DO Work Phone: [facility] 08-14-2023 15:29-0500 Systolic blood pressure 138 mm[Hg] Celso Garibay DO Work Phone: [facility] 06-18-2023 15:15-0400 Diastolic blood pressure 78 mm[Hg] Gaby Novoag DO Work Phone: [facility] [employer] 06-18-2023 15:15-0400 Heart rate 70 /min Gaby Novoag DO Work Phone: [facility] [employer] 06-18-2023 15:15-0400 Respiratory rate 18 /min Gaby Novoag DO Work Phone: [facility] [employer] 06-18-2023 15:15-0400 SaO2% (BldA) [Mass fraction] 96 % Gaby Novoag DO Work Phone: [facility] [employer] 06-18-2023 15:15-0400 Systolic blood pressure 173 mm[Hg] Gaby Novoag DO Work Phone: [facility] [employer] 06-18-2023 14:36-0400 Body temperature 97 [degF] Gaby Novoag DO Work Phone: [facility] [employer] 06-18-2023 13:30-0400 Body height 160 cm Gaby Novoag DO Work Phone: [facility] [employer] 06-18-2023 13:30-0400 Body mass index (BMI) [Ratio] 27.03 kg/m2 Gaby Novoag DO Work Phone: [facility] [employer] 06-18-2023 13:30-0400 Body weight 69.22 kg Gaby Novoag DO Work Phone: [facility] [employer] 11-02-2022 15:02-0500 Diastolic blood pressure 84 mm[Hg] MD Ziggy Dejesus Work Phone: [facility] 11-02-2022 15:02-0500 Heart rate 78 /min MD Ziggy Dejesus Work Phone: [facility] 11-02-2022 15:02-0500 Respiratory rate 18 /min MD Ziggy Dejesus Work Phone: [facility] 11-02-2022 15:02-0500 SaO2% (BldA) [Mass fraction] 100 % MD Ziggy Dejesus Work Phone: [facility] 11-02-2022 15:02-0500 Systolic blood pressure 161 mm[Hg] MD Ziggy Dejesus Work Phone: [facility] 11-02-2022 13:20-0500 Body height 160.02 cm MD Ziggy Dejesus Work Phone: [facility] 11-02-2022 13:20-0500 Body temperature 98.2 [degF] MD Ziggy Dejesus Work Phone: [facility] 11-02-2022 13:20-0500 Body weight 60.78 kg MD Ziggy Dejesus Work Phone: [facility] 11-01-2022 13:26-0500 Diastolic blood pressure 61 mm[Hg] MD Ziggy Dejesus Work Phone: [facility] 11-01-2022 13:26-0500 Heart rate 59 /min MD Ziggy Dejesus Work Phone: [facility] 11-01-2022 13:26-0500 Respiratory rate 20 /min MD Ziggy Dejesus Work Phone: [facility] 11-01-2022 13:26-0500 SaO2% (BldA) [Mass fraction] 99 % MD Ziggy Dejesus Work Phone: [facility] 11-01-2022 13:26-0500 Systolic blood pressure 124 mm[Hg] MD Ziggy Dejesus Work Phone: [facility] 11-01-2022 10:53-0500 Body height 160.02 cm MD Ziggy Dejesus Work Phone: [facility] 11-01-2022 10:53-0500 Body temperature 97.7 [degF] MD Ziggy Dejesus Work Phone: [facility] 11-01-2022 10:53-0500 Body weight 61.68 kg MD Ziggy Hoy Work Phone: [facility] 10-24-2022 15:45-0500 Body height 159.38 cm Imad Asaad Other [employer] Other 10-24-2022 15:45-0500 Body mass index (BMI) [Ratio] 24.28 kg/m2 Imad Asaad Other [facility] [employer] Other 10-24-2022 15:45-0500 Body weight 61.69 kg Imad Asaad Other [facility] [employer] Other 10-24-2022 15:45-0500 Diastolic blood pressure 94 mm[Hg] Imad Asaad Other [facility] [employer] Other 10-24-2022 15:45-0500 Systolic blood pressure 133 mm[Hg] Imad Asaad Other [facility] [employer] Other 09-19-2022 00:00-0500 34 1 Ziggy M Hoy Work Phone: [facility] [employer] 250 DO Work Phone: Comment on above: [facility] 08-15-2022 15:23-0500 Body height 160.02 cm Ziggy M Hoy Work Phone: [facility] 250 DO Work Phone: 08-15-2022 15:23-0500 Body mass index (BMI) [Ratio] 26.22 kg/m2 Ziggy M Hoy Work Phone: [facility] 250 DO Work Phone: 08-15-2022 15:23-0500 Body surface area Derived from formula 1.7 m2 Ziggy M Hoy Work Phone: [facility] 250 DO Work Phone: 08-15-2022 15:23-0500 Body weight 67.13 kg Ziggy M Hoy Work Phone: [facility] 250 DO Work Phone: 08-15-2022 15:23-0500 Diastolic blood pressure 82 mm[Hg] Ziggy M Hoy Work Phone: [facility] 250 DO Work Phone: 08-15-2022 15:23-0500 Heart rate 80 /min Ziggy M Hoy Work Phone: [facility] 250 DO Work Phone: 08-15-2022 15:23-0500 Systolic blood pressure 132 mm[Hg] Ziggy M Hoy Work Phone: [facility] 250 DO Work Phone: 06-02-2022 08:12-0400 Blood Pressure Location Santiago CARRILLO [facility] 06-02-2022 08:12-0400 Diastolic blood pressure 86 mm[Hg] Santiago CARRILLO [facility] 06-02-2022 08:12-0400 Heart rate 60 /min Santiago CARRILLO [facility] 06-02-2022 08:12-0400 Respiratory rate 16 /min Santiago CARRILLO [facility] 06-02-2022 08:12-0400 Systolic blood pressure 144 mm[Hg] Santiago CARRILLO [facility] 08-17-2021 09:47-0500 Body height 160.02 cm Ziggy M Hoy Work Phone: [facility] 250 DO Work Phone: 08-17-2021 09:47-0500 Body mass index (BMI) [Ratio] 25.01 kg/m2 Ziggy M Hoy Work Phone: [facility] 250 DO Work Phone: 08-17-2021 09:47-0500 Body surface area Derived from formula 1.67 m2 Ziggy M Hoy Work Phone: [facility] 250 DO Work Phone: 08-17-2021 09:47-0500 Body weight 64.05 kg Ziggy M Hoy Work Phone: [facility] 250 DO Work Phone: 08-17-2021 09:47-0500 Diastolic blood pressure 86 mm[Hg] Ziggy M Hoy Work Phone: [facility] 250 DO Work Phone: 08-17-2021 09:47-0500 Heart rate 72 /min Ziggy M Hoy Work Phone: [facility] 250 DO Work Phone: 08-17-2021 09:47-0500 Systolic blood pressure 134 mm[Hg] Ziggy M Hoy Work Phone: [facility] 250 DO Work Phone: Encounters Encounter Date Encounter Type Care Provider Facility Start: 04-10-2024 End: 04-10-2024 ambulatory PA-C JENNIFER MARTINO Facility:[facility] Start: 04-10-2024 End: 04-10-2024 Patient encounter procedure JENNIFER MARTINO [facility] Start: 03-11-2024 End: 03-11-2024 ambulatory PA-C JENNIFER MARTINO Facility:[facility] Start: 03-11-2024 End: 03-11-2024 Patient encounter procedure JENNIFER MARTINO [facility] Start: 03-07-2024 End: 03-07-2024 Evaluation and management of inpatient [facility] Start: 03-06-2024 End: 03-07-2024 Evaluation and management of inpatient [facility] Start: 03-06-2024 End: 03-06-2024 Evaluation and management of inpatient [facility] Start: 02-29-2024 End: 02-29-2024 Evaluation and management of inpatient ZIGGY Clements [facility] Start: 02-27-2024 ambulatory [facility] Start: 02-27-2024 End: 02-27-2024 ambulatory [facility] Start: 01-17-2024 End: 01-17-2024 ambulatory STEPHANIE [facility] Start: 09-13-2023 End: 09-13-2023 ambulatory ALINA JAVIER Not Available Start: 08-14-2023 End: 08-14-2023 ambulatory [facility] Start: 08-14-2023 End: 08-14-2023 Office outpatient visit 15 minutes [facility] Work Phone: [facility] Comment on above: Atherosclerosis of c oronary artery of [place] heart without angina pectoris, unspecified vessel or lesion type; History of coronary artery bypass graft; Ischemic cardiomyopathy; Essential hypertension, benign Start: 06-18-2023 End: 06-18-2023 [facility] Start: 06-18-2023 End: 06-18-2023 Subsequent hospital visit by physician Gaby Tello DO Work Phone: [facility] Comment on above: Post-menopausal blee ding; Inclusion cyst Start: 05-24-2023 Rx Renewal Ziggy Dejesus Work Phone: [facility] 250 DO Work Phone: Start: 05-17-2023 Patient encounter procedure Ziggy Dejesus Work Phone: [facility] 250 DO Work Phone: Start: 05-15-2023 ambulatory ZIGGY DEJESUS [facility] Start: 12-12-2022 End: 12-12-2022 ambulatory Imad Asaad Facility:[facility] Start: 12-12-2022 End: 12-12-2022 ambulatory MD Ziggy Dejesus Work Phone: [facility] Work Phone: Start: 12-12-2022 End: 12-12-2022 Patient encounter procedure MD Ziggy Dejesus Work Phone: [facility] Work Phone: Start: 11-20-2022 End: 11-20-2022 ambulatory Imad Asaad Other [facility] [employer] Other Start: 11-20-2022 Telephone encounter Imad Asaad [facility] Start: 11-10-2022 End: 11-10-2022 ambulatory Imad Asaad Facility:[facility] Start: 11-10-2022 End: 11-10-2022 Patient encounter procedure MD Ziggy Dejesus Work Phone: [facility] [place] Work Phone: Start: 11-02-2022 End: 11-02-2022 ambulatory Imad Asaad Facility:[facility] Start: 11-02-2022 End: 11-02-2022 Admission to same day surgery center MD Ziggy Dejesus Work Phone: [facility] Work Phone: Start: 11-02-2022 End: 11-02-2022 ambulatory MD Ziggy Dejesus Work Phone: [facility] Work Phone: Start: 11-01-2022 Telephone encounter Imad Asaad [facility] Start: 11-01-2022 End: 11-01-2022 ambulatory Imad Asaad Facility:[facility] Start: 11-01-2022 End: 11-01-2022 Admission to same day surgery center MD Ziggy Dejesus Work Phone: [facility] Work Phone: Start: 11-01-2022 End: 11-01-2022 ambulatory MD Ziggy Dejesus Work Phone: [facility] Work Phone: Start: 10-24-2022 End: 10-24-2022 ambulatory Imad Asaad Other [employer] Other Start: 10-24-2022 [facility] visit new patient Imad Asaad [facility] Start: 10-16-2022 End: 10-17-[address] ZIGGY DEJESUS Facility:[facility] Start: 10-09-2022 End: 10-10-[address] ZIGGY DEJESUS Facility:[facility] Start: 10-05-2022 Rx Renewal Ziggy Dejesus Work Phone: [facility] 250 DO Work Phone: Start: 10-04-2022 End: 10-06-[address] ZIGGY DEJESUS Facility:[facility] Start: 09-19-2022 End: 09-20-[address] DOCTOR PATEL Facility:[facility] Start: 08-15-2022 Office outpatient vi sit 15 minutes Ziggy Dejesus Work Phone: [facility] 250 DO Work Phone: Start: 08-15-2022 Patient encounter procedure Ziggy Dejesus Work Phone: [facility] 250 DO Work Phone: Start: 06-02-2022 End: 06-02-2022 Patient encounter procedure Santiago CARRILLO [facility] Start: 05-31-2022 Rx Renewal Ziggy Dejesus Work Phone: [facility] 250 DO Work Phone: Start: 02-07-2022 End: 02-07-2022 Patient encounter procedure Ziggy Dejesus MD Work Phone: [facility] Start: 02-07-2022 End: 02-07-2022 Subsequent hospital visit by physician [facility]ig[facility]jesus MD [facility] Comment on above: Women's annual routi ne gynecological examination Start: 11-21-2021 Rx Renewal Ziggy Tyree Seb Work Phone: [facility] 250 DO Work Phone: Start: 08-17-2021 Office outpatient vi sit 15 minutes Ziggy Tyree Sbe Work Phone: [facility] 250 DO Work Phone: Start: 08-19-2019 End: [...] 12-03-2018 Cystoscopic removal of ureteric stent JENNIFER HARDYRY Appendectomy Ziggy M Hoy Work Phone: Appendectomy [...] 02-07-2027 [facility] Start: 02-07-2025 Screening for malignant neoplasm of cervix Pap smear [facility] Start: 08-19-2024 [facility] Start: 08-13-2024 End: 08-13-2024 Patient encounter procedure 08/13/2024 11:30 AM EST Office Visit [facility] [address] [place] [address] Celso Garibay DO [address] [place] [address] [facility] Start: 02-14-2024 Depression Screen Depression Screen [facility] Start: 02-12-2024 End: 08-14-2024 Alanine aminotransferase [Enzymatic activity/volume] in Serum or Plasma by With P-5'-P Alanine Aminotransferase Lab Routine History of coronary artery bypass graft Ischemic cardiomyopathy Expected: 02/12/2024 (Approximate), Expires: 08/14/2024 [facility] Work Phone: Comment on above: Expected: 02/12/2024 (Approximate), Expi res: 08/14/2024 Start: 02-12-2024 End: 08-14-2024 Aspartate aminotransferase [Enzymatic activity/volume] in Serum or Plasma by With P-5'-P Aspartate Aminotransferase Lab Routine Atherosclerosis of coronary artery of [place] heart without angina pectoris, unspecified vessel or lesion type Ischemic cardiomyopathy Expected: 02/12/2024 (Approximate), Expires: 08/14/2024 [facility] Work Phone: Comment on above: Expected: 02/12/2024 (Approximate), Expi res: 08/14/2024 Start: 02-12-2024 End: 08-14-2024 Lipid 1996 panel - Serum or Plasma Lipid Panel Lab Routine Atherosclerosis of coronary artery of [place] heart without angina pectoris, unspecified vessel or lesion type Expected: 02/12/2024 (Approximate), Expires: 08/14/2024 [facility] Service Area Work Phone: Comment on above: Expected: 02/12/2024 (Approximate), Expi res: 08/14/2024 Start: 08-14-2023 FUV, Provider: Celso Garibay, Status: Pen, Time: 3:00 PM FUV, Provider: Celso Garibay, Status: Julio, Time: 3:00 PM [facility] 250 DO Work Phone: Start: 07-28-2023 Screening for malignant neoplasm of breast Breast cancer screen [facility] Start: 07-24-2023 Screening for malignant neoplasm of breast [facility] [facility] Start: 07-03-2023 End: 07-03-2023 Patient encounter procedure 07/03/2023 4:45 PM EDT Office Visit [facility] [address] [place] [address] Gaby Chahal, DO [address] [place], [place] [id number] post-op BA 05/16 [facility] Comment on above: post-op BA 05/16 Start: 06-18-2023 End: 06-18-2023 Hysteroscopy bx endometrium&/polypc w/wo d&c DILATATION AND CURETTAGE HYSTEROSCOPY Post-menopausal bleeding Inclusion cyst 06/18/2023 2:01 PM EDT [facility] Start: 02-13-2023 End: 02-13-2023 Patient encounter procedure 02/13/2023 Office Visit Obstetrics and Gynecology Gaby Chahal, DO [address] [place], [place] [id number] [facility] Start: 12-12-2022 [facility] Start: 11-02-2022 [facility] Start: 11-01-2022 [facility] Start: 08-19-2022 Screening for malignant neoplasm of cervix Pap smear [facility] Start: 08-15-2022 FUV, Provider: Celso Garibay, Status: Pen, Time: 3:00 PM SATNAMV, Provider: Celso Garibay, Status: Pen, Time: 3:00 PM [facility] 250 DO Work Phone: Start: 08-03-2022 Lipid panel Lipids [facility] Start: 09-26-2021 COVID-19 Vaccine (4 - Pfizer series) COVID-19 Vaccine (4 - Pfizer series) [facility] Start: 06-01-2019 Influenza vaccination Flu vaccine (#1) [place], [place] Start: 05-09-2018 Pneumococcal Vaccine: Pediatrics (0 to 5 Years) and At-Risk Patients (6 to 64 Years) (2 - PCV) Pneumococcal Vaccine: Pediatrics (0 to 5 Years) and At-Risk Patients (6 to 64 Years) (2 - PCV) [facility] Start: 2014 Breast cancer screen Breast cancer screen [place], [place] Start: 2014 Colon cancer screen colonoscopy Colon cancer screen colonoscopy [place] Start: 2014 Shingles Vaccine (1 of 2) Shingles Vaccine (1 of 2) [facility] Start: 08-26-2009 MMR Vaccines (1 of 1 - Standard series) MMR Vaccines (1 of 1 - Standard series) [facility] Start: 2009 Screening for malignant neoplasm of colon [facility] Start: 1999 Diabetes screen Diabetes screen [facility] Start: 1986 DTaP/Tdap/Td Vaccines (1 - Tdap) DTaP/Tdap/Td Vaccines (1 - Tdap) [facility] Start: 1985 Cervical cancer screen Cervical cancer screen [place], [place] Start: 1985 Screening for malignant neoplasm of cervix [facility] Start: 1983 DTaP/Tdap/Td vaccine (1 - Tdap) DTaP/Tdap/Td vaccine (1 - Tdap) [facility] Start: 1982 Diabetes mellitus screening Diabetes Screening [facility] Start: 1982 Hepatitis C screening [facility] Start: 1979 HIV screen HIV screen [place], [place] Start: 1979 HIV screening HIV screen [facility] Start: 1976 Depression Screen Depression Screen [facility] Start: 1975 DTaP/Tdap/Td vaccine (1 - Tdap) DTaP/Tdap/Td vaccine (1 - Tdap) [place] Start: 1974 Lipid panel Lipids [facility] Start: 1974 Lipid screen Lipid screen [place] Start: 1964 Hepatitis B vaccine (1 of 3 - 3-dose series) Hepatitis B vaccine (1 of 3 - 3-dose series) [facility] Start: 1964 Hepatitis B Vaccines (1 of 3 - 3-dose series) Hepatitis B Vaccines (1 of 3 - 3-dose series) [facility] Start: 1964 Hepatitis C screen Hepatitis C screen [place], [place] Start: 1964 HIV screening HIV Screening [facility] Start: 1964 Lipid panel Lipid Panel [facility] Start: 1964 Screening for malignant neoplasm of colon [facility] Start: 1964 Yearly Adult Physical Yearly Adult Physical [facility] Actin smooth muscle IgG Ab [Units/volume] in Serum [facility] Alpha 1 antitrypsin [Mass/volume] in Serum or Plasma [facility] Alpha 1 antitrypsin phenotyping [Identifier] in Serum or Plasma by Immunofixation [facility] Ceruloplasmin [Mass/volume] in Serum or Plasma [facility] End: 08-19-2019 Cytopathology procedure, preparation of smear, genital source PAP SMEAR Lab Routine Well female exam with routine gynecological exam 1 Occurrences starting 08/19/2019 until 08/19/2019 [place] Comment on above: 1 Occurrences starting 08/19/2019 until 08/19/2019 End: 02-07-2022 Cytopathology procedure, preparation of smear, genital source PAP SMEAR Lab Routine Women's annual routine gynecological examination 1 Occurrences starting 02/07/2022 until 02/07/2022 [employer] Work Phone: Comment on above: 1 Occurrences starting 02/07/2022 until 02/07/2022 Hepatitis A virus Ab [Presence] in Serum by Immunoassay [facility] Hepatitis B core ant ibody measurement [facility] Hepatitis B virus khanna rface Ab [Presence] in Serum [facility] Hepatitis B virus khanna rface Ag [Presence] in Serum or Plasma by Immunoassay [facility] Hepatitis C virus Ig G Ab [Presence] in Serum or Plasma by Immunoassay [facility] Homogenous nuclear A b pattern [Titer] in Serum [facility] IgG [Mass/volume] in Serum or Plasma [facility] End: 06-18-2023 INITIATE PACU OXYGEN THERAPY PROTOCOL Initiate PACU Oxygen Therapy Protocol Respiratory Care Routine Continuous until discontinued starting 06/18/2023 [employer] Comment on above: Continuous until discontinued starting 0 06/18/2023 Lipoprotein a [Moles/volume] in Serum or Plasma [facility] Mitochondria M2 IgG Ab [Units/volume] in Serum [facility] Nuclear Ab [Titer] i n Serum [facility] Oxygen therapy [Mini mum Data Set] Initiate Oxygen Therapy Protocol Respiratory Care Routine As Needed until discontinued starting 06/18/2023 [employer] Comment on above: As Needed until discontinued starting Oxygen therapy [Mini mum Data Set] Initiate Oxygen Therapy Protocol Respiratory Care Routine As Needed until discontinued starting 06/18/2023 [employer] Comment on above: As Needed until discontinued starting Patient Education Hemorrhoids (DC) [facility] Work Phone: End: 06-18-2023 , urine POCT , urine POCT Point of Care Testing Routine One Time for 1 Occurrences starting 06/18/2023 until 06/18/2023 [employer] Comment on above: One Time for 1 Occurrences starting 06/01 until 06/18/2023 Surgical Pathology Surgical Path ology Lab Routine Post-menopausal bleeding Inclusion cyst Release Upon Ordering for 1 Occurrences starting 06/18/2023 [employer] Comment on above: Release Upon Ordering for 1 Occurrences starting 06/18/2023 [facility] Immunizations Immunization Date Immunization Notes Care Provider Sudhakar ponce 06-16-2022 influenza, injectabl e, quadrivalent, preservative free Ziggy M Hoy Work Phone: [facility] 250 DO Work Phone: 06-16-2022 zoster vaccine recombinant Ziggy M Hoy Work Phone: [facility] 250 DO Work Phone: 08-01-2021 Pfizer-BioNTech COVI D-19 Vacc 30 MCG/0.3ML Intramuscular Suspension Ziggy M Hoy Work Phone: [facility] 250 DO Work Phone: 06-30-2021 influenza virus vacc ine, unspecified formulation Ziggy M Hoy Work Phone: [facility] 250 DO Work Phone: 06-03-2021 Influenza, injectabl e, Madin Renetta Canine Kidney, preservative free, quadrivalent Ziggy M Hoy Work Phone: [facility] 250 DO Work Phone: 01-29-2021 Pfizer-BioNTech COVI D-19 Vacc 30 MCG/0.3ML Intramuscular Suspension Ziggy M Hoy Work Phone: [facility] 250 DO Work Phone: 01-08-2021 Pfizer-BioNTech COVI D-19 Vacc 30 MCG/0.3ML Intramuscular Suspension Ziggy M Hoy Work Phone: [facility] 250 DO Work Phone: 2020 influenza, injectabl e, quadrivalent, preservative free Ziggy M Hoy Work Phone: [facility] 250 DO Work Phone: 07-23-2018 influenza, injectabl e, quadrivalent, preservative free Ziggy M Hoy Work Phone: [facility] 250 DO Work Phone: 07-26-2017 Influenza, injectabl e, Madin Greenwood Canine Kidney, preservative free, quadrivalent Ziggy M Hoy Work Phone: [facility] 250 DO Work Phone: 05-09-2017 pneumococcal polysaccharide vaccine, 23 valent Ziggy M Hoy Work Phone: [facility] 250 DO Work Phone: 07-03-2015 influenza, seasonal, injectable, preservative free Ziggy M Hoy Work Phone: [facility] 250 DO Work Phone: 06-15-2014 influenza, seasonal, injectable Ziggy M Hoy Work Phone: [facility] 250 DO Work Phone: 07-29-2009 novel influenza-H1N1 -09, preservative-free, injectable Ziggy M Hoy Work Phone: [facility] 250 DO Work Phone: Payers Date Payer Category Payer Self-pay [id number] [phone] [id number] 2022 Unknown 2019 Unknown BC [employer] BC BS [employer] [facility] xxxxxxxxxxxxxxx 2019-Present [address] [place] [address] xxxxxxxxxxxxxxx [id number] 1964 Unknown [id number] [id number]3 1964 Unknown [id number] 2.16.840.1.534995.3.579.2.593 1964 Unknown [id number] 2.16.840.1.901798.3.579.2.593 1964 Unknown [id number] 2.16.840.1.160969.3.579.2.593 1964 Unknown [id number] 2.16.840.1.226360.3.579.2.593 1964 Unknown [id number] 2.16.840.1.882065.3.579.2.173 1964 Unknown [id number] 2.16.840.1.061775.3.579.2.175 1964 Unknown [id number] 2.16.840.1.626505.3.579.2.124 4 1964 Unknown [id number] 2.16.840.1.554095.3.579.2.125 9 1964 Unknown [id number] 2.16.840.1.149576.3.579.2.128 6 1964 Unknown [id number] 2.16.840.1.790483.3.579.2.128 6 1964 Unknown [id number] 2.16.840.1.369803.3.579.2.128 6 1964 Unknown [id number] 2.16.840.1.926557.3.579.2.128 6 1964 Unknown [id number] 2.16.840.1.046111.3.579.2.128 6 1964 Unknown [id number] 2.16.840.1.182130.3.579.2.128 6 1964 Unknown [id number] 2.16.840.1.637148.3.579.2.128 6 1964 Unknown [id number] 2.16.840.1.674788.3.579.2.727 1964 Unknown [id number] 2.16.840.1.886489.3.579.2.727 1959 Unknown [id number] 1959 Unknown [id number] Unknown [id number] 2.16.840.1.960665.3.579.2.531 Unknown [id number] 2.16.840.1.752908.3.579.2.531 Unknown [id number] 2.16.840.1.981517.3.579.2.531 Unknown [id number] 2.16.840.1.467208.3.579.2.531 Social History Date Type Detail Facility Start: 08-19-2019 End: 04-10-2024 Tobacco smoking status NHIS Never smoker [place], [place] Start: 08-19-2019 End: 06-18-2023 Alcohol intake Ex-drinker (finding) [place], [place] Start: 1965 Sex Assigned At Not on file [place] Start: 02-13-2023 End: 06-18-2023 No alcohol use No alcohol use [facility] [employer] DO Work Phone: Start: 08-19-2019 End: 08-14-2023 Tobacco use and exposure Smokeless tobacco non-user [facility] Work Phone: Start: 02-13-2023 End: 06-18-2023 Sex Assigned At Female [facility] Start: 1965 Sex Assigned At Female F [facility] Patient Health Questionnaire 9 item (PHQ-9) total score [Reported] 0 [facility] Start: 08-14-2023 Alcohol intake Lifetime non-drinker (finding) [facility] Work Phone: Start: 08-04-2023 End: 08-14-2023 Exposure to SARS-CoV-2 (event) Not sure [facility] NEGATED: Highlighted row Denies Caffeine use Denies Caffeine use [facility] [employer] 250 DO Work Phone: Medical Equipment Procedure [...] 04-10-2024 Functional Status N/A [facility] 06-02-2022 Functional Status N/A [facility] Clinical Notes 06-02-2022 to 04-10-2024 Celso Garibay DO - 08/14/2023 3:00 PM ESTPatient InstructionsDischarge Debbie Pro RN - 06/06/2023 11:34 AM EDT Note Date & Type Note Facility 04-10-2024 Hospital Discharge instructions Patient Education 04/10/2024 16:08:23 Kidney Stones, Aqie-ej-Spkk Kidney Stones Kidney stones are rock-like masses [...] Follow these instructions at home: Medicines Take hqsn-izk-nluunfy and prescription medicines only as told by [...] provider. Document Revised: 05/22/2022 Document Reviewed: 05/22/2022 [employer] Patient Education 2022 [employer]. Follow Up Care 03/10/2024 08:31:33 With:SALENA REDDY, JENNIFER López, URL Address: [address] [place] [address] When:3 months [facility] 04-10-2024 Note Patient Education Urology Kidney Stones [...] these instructions at home: Medicines ? Take njgg-wja-ycqrqbj and prescription medicines only as told by [...] provider. Document Revised: 05/22/2022 Document Reviewed: 05/22/2022 [employer] Patient Education ? 2022 [employer]. [facility] 02-27-2024 Note Attestation signed by Danielle Cesar MD at 02/27/2024 2:30 PM I personally saw and examined the patient on the same date of service as resident/fellow . I discussed the findings and therapeutic plan with the resident/fellow . I agree with the documentation, except for any edits/updates below. [facility] Gastroenterology New Patient Visit - History [...] pectoris (CMS/HCC) Atherosclerosis of coronary artery of [place] heart without angina pectoris Cellulitis of right [...] Mother Gretta Hyperlipidemia Father Munoz Hyperlipidemia Brother [place] Heart attack Brother Ray SOCIAL HISTORY: Social [...] HEENT: negative RESPI (more content not included)... [facility] 08-14-2023 History of Present illness Narrative [...] has a history of remote CABG, remote NC, remote PCI's before and after her CABG [...] Assessment/Plan 1. Atherosclerosis of coronary artery of [place] heart without angina pectoris, unspecified vessel or lesion type 2. History of coronary artery bypass graft 3. Ischemic cardiomyopathy 4. Essential hypertension, benign documented in this encounter [facility] Work Phone: 08-14-2023 Instructions Ej Braswell [...] of your visit. documented in this encounter [facility] Work Phone: 06-18-2023 Hospital Discharge instructions [...] call if excessive. Call the office at [phone] ([place]) [phone] ([place]) for an appointment in 2 weeks. documented in this encounter [facility] 06-06-2023 History of Present illness Narrative [...] with Dr. Tripathi. documented in this encounter [facility] 11-20-2022 Evaluation note Encounter Date Diagnosis Assessment Notes Nov, Elevated liver function tests (ICD-10 - R94.5) [facility] Evaluation note* Encounter Date Diagnosis Assessment Notes Treatment Notes Treatment Clinical Notes Oct, Abdominal pain (ICD-10 - R10.9) Oct, Common bile duct dilatation (ICD-10 - K83.8) Oct, Elevated liver enzymes (ICD-10 - R74.8) Oct, Constipation (ICD-10 - K59.00) Colonoscopy Start Miralax daily after colonoscopy. Titration dosing discussed with patient. Oct, Colon cancer screening (ICD-10 - Z12.11) [facility] Other 01-04-2023 NotePROGRESS NOTE NOTE DATE: 10/04/2022 CHIEF COMPLAINT: Abdominal pain. HISTORY OF PRESENT ILLNESS: The patient is a 57-year-old female with a history of dyslipidemia and gastric bypass surgery, who has been having increasing abdominal pain and flank pain. She was seen yesterday at the [facility] for epigastric and upper abdominal [...] DVT Prophylaxis: Lovenox. DISPOSITION: Home when medically stable.[facility]09-02-2022 Hospital Discharge instructions Patient Education 06/02/2022 08:51:52 Kidney Stones, Aoli-zx-Otdv Kidney Stones Kidney stones are rock-like masses [...] Follow these instructions at home: Medicines Take jyqh-lxa-xrxthwb and prescription medicines only as told by [...] 03/05/2009 Document Revised: 02/03/2020 Document Reviewed: 02/03/2020 [employer] Patient Education 2020 [employer]. Follow Up Care 05/27/2021 09:10:08 With:Santiago CARRILLO MD, URL Address: [address] [place] [address]- When: Unknown [facility] evaluation + Plan note Future Appointments Appointment Date:06/01/2023 08:00:00 AM Scheduled Provider:Santiago CARRILLO MD Location:[facility] Appointment Type:URO Office Visit [facility] evaluation + Plan note Future Appointments Appointment Date:04/10/2024 03:00:00 PM Scheduled Provider:JENNIFER MARTINO PA-C Location:[facility] Appointment Type:URO Office Visit [facility] evaldyxyzt note* Diagnosis Women's annual routine gynecological examination documented in this encounter [employer] Phone: evaluation noteNo assessment information available [facility] Work Phone: Evaluation noteNo InformationNort [employer] Other Evaluation note* Diagnosis Post-menopausal bleeding Postmenopausal bleeding Inclusion cyst Sebaceous cyst [facility] Diagnosis Atherosclerosis of coronary artery of [place] heart without angina pectoris, unspecified vessel or lesion type 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 Ischemic cardiomyopathy Other specified forms of chronic ischemic heart disease Essential hypertension, benign documented in this encounter [facility] Work Phone: History and physical note Author Evert Bruno [facility] November 01, 2022 12:40pm Note Date/Time November 01, 2022 1 2:40pm [facility] EN[facility] [address] [place] [address] Gastroenterology H&P Signed Patient: Jose Alberto Saleem MR#: [id number] : 1965 Acct:[id number] Age/Sex: 57 / F Adm Date: 3 Loc: Room: Type: [facility] Attending Dr: Evert Bruno MD Copies [...] signed by Evert Bruno MD> 11/01/22 1240 [facility] Work Phone: History and physical note Author Evert Bruno [facility] November 02, 2022 2:14pm Note Date/Time November 02, 2022 2 :14pm [facility] [address] [place] [address] Gastroenterology H&P Signed Patient: Jose Alberto Saleem MR#: [id number] : 1965 Acct:[id number] Age/Sex: 57 / F Adm Date: 3 Loc: Room: Type: [facility] Attending Dr: vEert Bruno MD Copies to: MD Evert Little [...] signed by Evert Bruno MD> 11/02/22 1414 [facility] Work Phone: History general Narrative - Reported* Type Description Date Medical History impaired fasting glucose Medical History heart disease, NC stents, CABG Medical History Hypertension Medical History hyperlipidemia Medical History nutritional 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 -Follow up with PCP. -Office number [phone]. [facility] Work Phone: Hospital Discharge instructions Additional [...] problems. -Follow up with PCP. -Office number [phone]. [facility] Work Phone: Hospital Discharge instructions No data available for this section [facility] progress note No data available for this section [facility] reason for referral (narrative)* Consultation (Routine) - Authorized Specialty Diagnoses / Procedures Referred By Manfred flynn Referred To Contact Cardiology Diagnoses Atherosclerosis of coronary artery of [place] heart without angina pectoris, unspecified vessel or lesion type History of coronary artery bypass graft Procedures Follow Up In Cardiology Celso Garibay DO [facility] [facility] [address], [address] [address] Celso Garibay DO [address] [facility], [address] [place] [address] Referral ID Status Reason Start Date Expiration Date V isits Requested Visits Authorized [id number] Authorized 08/14/2023 08/13/2024 1 1 [facility] Work Phone: Summary Purpose Family History No [...] FoundDocuments on File Type Date Recorded Patient Manager Shop Expl anation Advance Directives and Living Will Power of Behavioral Sciences Instructor Documents on File Type Date Recorded Patient Manager Shop Expl anation ACP-Advance Directive ACP-Power of Behavioral Sciences Instructor Advance Directive Response Recorded Date/ Time Advance [...] She has known history of prior inferior NC, prior stenting, priorthree-vessel CABG, subsequent PCI of [...] adverse reactions to other medications, hypotension. * [place] [employer] is class I * Recommendations, [...] She has a history of prior inferior NC, prior PCI with subsequent three-vessel CABG and [...] She has a history of prior inferior NC, prior PCI with subsequent three-vessel CABG and [...] section and content) DATE CREATED AUTHOR 03/26/2018 [facility] Healthcare DATE CREATED AUTHOR AUTHOR'S ORGANIZ ATION 03/26/2018 [facility] DATE CREATED AUTHOR AUTHOR'S ORGANIZ ATION 08/02/2022 [facility] dical Specialist DATE CREATED AUTHOR AUTHOR'S ORGANIZ ATION 08/17/2022 [employer] DATE CREATED AUTHOR AUTHOR'S ORGANIZ ATION 10/17/2022 [facility] DATE CREATED AUTHOR AUTHOR'S ORGANIZ ATION 12/16/2022 [facility] DATE CREATED AUTHOR AUTHOR'S ORGANIZ ATION 06/23/2023 [facility] DATE CREATED AUTHOR AUTHOR'S ORGANIZ ATION 07/16/2023 [facility] DATE CREATED AUTHOR AUTHOR'S ORGANIZ ATION 08/16/2023 [facility] DATE CREATED AUTHOR AUTHOR'S ORGANIZ ATION 09/15/2023 [facility] dical Specialists EPIC DATE CREATED AUTHOR AUTHOR'S ORGANIZ ATION 01/19/2024 [facility] DATE CREATED AUTHOR AUTHOR'S ORGANIZ ATION 03/03/2024 [facility] DATE CREATED AUTHOR AUTHOR'S ORGANIZ ATION 03/07/[address] [facility] DATE CREATED AUTHOR AUTHOR'S ORGANIZ ATION 04/16/2024 [facility] Care Teams (unrecognized sec tion and content) Team Status: Active Member Role Status Dates Ziggy Dejesus MD Primary Care Provider Active Team Status: Inactive Member Role Status Dates Ziggy Dejesus MD Primary Care Provider Active Evert Bruno MD Attending Provider Active Superintendent Maintenance Relationship Specialty Start Date End Date Ziggy Dejesus MD [address] [place] [address] PCP - General Family Medicine 08/19/19 Superintendent Maintenance Relationship Specialty Start Date End Date Ziggy Dejesus MD [address] [place] [address] PCP - General Family Medicine 08/19/19 Superintendent Maintenance Relationship Specialty Start Date End Date Ziggy Dejesus MD [address] [place] [address] PCP - General 08/17/21 REASON FOR VISIT (unrecogniz ed section and content) Specialty Diagnoses / Procedures Referred By Manfred t Referred To Contact Diagnoses Post-menopausal bleeding Inclusion cyst Post-menopausal bleeding [N95.0] Inclusion cyst [L72.0] Procedures HI HYSTEROSCOPY BX ENDOMETRIUM&/POLYPC W/WO D&C HI DESTRUCTION BENIGN LESIONS UP TO 14 DILATATION AND CURETTAGE HYSTEROSCOPY-REMOVAL OF INCLUSION CYST Gaby Chahal, DO [address] [place] [address] [facility] [address] [place] [address] Referral ID Status Reason Start Date Expiration Date Visits Re quested Visits Authorized [id number] 1 1 Reason Comments Annual Exam 1yr [...] BE BASED ON THE PRIMARY CLINICAL RECORDS. [employer]. provides no warranty or guarantee of the accuracy or completeness of information in this document.
[2024-05-01 07:05] LABS: Basophils Percent Auto 0.2 % (0.2-2.0); Eosinophils Absolute Auto 0.2 10^3/uL (0.0-0.7); Eosinophils Percent Auto 3.9 % (0.9-7.0); Hematocrit 46.2 % (36.0-48.0); Hemoglobin 15.2 g/dL (12.0-16.0); Lymphocytes Absolute Auto 1.7 10^3/uL (1.2-3.8); Lymphocytes Percent Auto 32.1 % (20.5-60.0); Mean Corpuscular HGB Conc 32.9 g/dL (29.9-35.2); Mean Corpuscular Hemoglobin 30.1 pg (26.7-34.0); Mean Corpuscular Volume 91.5 fL (81.0-99.0); Mean Platelet Volume 9.3 fL (9.5-13.5); Monocytes Absolute Auto 0.6 10^3/uL (0.3-0.8); Monocytes Percent Auto 10.1 % (1.7-12.0); Neutrophils Absolute Auto 2.9 10^3/uL (1.4-6.5); Neutrophils Percent Auto 53.7 % (43.0-75.0); Platelet Count 182 10^3/uL (150-450); Red Blood Count 5.05 10^6/uL (4.20-5.40); Red Cell Distribution Width 12.2 % (11.0-15.0); White Blood Count 5.4 10^3/uL (4.0-11.0)
--- NOTE | 2024-05-01 07:05 | US_ITS ---
The [address] [address] Patient Name: JOSE ALBERTO SALEEM MRN: [id number] date: 1965 Sex: F Assigned Patient Location: [place] Current Patient Location: [place] Accession/Order Number: [id number] Exam Date: 05/01/2024 07:10 Report Date: 05/01/2024 10:48 At the request of: ASHLEY GRIGSBY Procedure: US right upper quadrant EXAMINATION: US right upper quadrant HISTORY: Right upper quadrant pain R10.11 COMPARISON: CT abdomen pelvis 04/29/2024, ultrasound right upper quadrant 01/26/2024 TECHNIQUE: Transabdominal evaluation of the right upper quadrant. FINDINGS: LIVER: Normal size and echotexture. Color Doppler demonstrates patent hepatic veins. PORTAL VEIN: Duplex Doppler demonstrates normal hepatopetal flow pattern with flow velocity averaging 22 cm/s. GALLBLADDER: Cholecystectomy. BILIARY: No abnormal dilation or stones. Common bile duct diameter is within normal limits. PANCREAS: Not well seen. No visible mass, abnormal atrophy, or duct dilation. KIDNEY: Inferior pole 2.7 cm benign appearing cyst. No hydronephrosis. No visible mass or stones. Size: 13.1 x 5.4 x 5.0 cm US/US right upper quadrant IMPRESSION: 1. Slightly limited examination due to shadowing from overlying bowel gas. 2. No acute or suspicious right upper quadrant findings to account for patient's symptoms. Electronically authenticated by: RONAN TORIBIO Date: 05/01/2024 10:48
[2024-05-01 07:50] LABS: Alanine Aminotransferase 80 U/L (14-59); Albumin Globulin Ratio 1.2; Albumin Level 3.7 g/dL (3.4-5.0); Alkaline Phosphatase 87 U/L (46-116); Amylase 138 U/L (25-115); Aspartate Amino Transferase 41 U/L (15-37); Bilirubin Direct 0.1 mg/dL (0.0-0.2); Bilirubin Total 0.4 mg/dL (0.2-1.0); Total Protein 6.7 g/dL (6.4-8.2)
== END 2024-05-01 06:52 | disposition home or self-care (01) ==
LOC: US 06:51
PROVIDERS: PCP Family Medicine; Visit Provider Family Medicine
DX: R10.11 Right upper quadrant pain (principal)
CPT/HCPCS: 36415; 76705; 80076; 81001; 82150; 83690; 85025; 87086

== ENCOUNTER 2024-08-05 10:11 | Outpatient (OUT) | payer BC, SELFPAY ==
[2024-08-05 10:30] LABS: Basophils Percent Auto 0.2 % (0.2-2.0); Eosinophils Absolute Auto 0.2 10^3/uL (0.0-0.7); Hematocrit 46.6 % (36.0-48.0); Hemoglobin 15.3 g/dL (12.0-16.0); Immature Granulocytes Abs Auto 0.01 10^3/uL (0.00-0.03); Immature Granulocytes Pct Auto 0.2 % (0.0-0.5); Lymphocytes Absolute Auto 1.2 10^3/uL (1.2-3.8); Lymphocytes Percent Auto 27.2 % (20.5-60.0); Mean Corpuscular HGB Conc 32.8 g/dL (29.9-35.2); Mean Corpuscular Hemoglobin 30.5 pg (26.7-34.0); Mean Corpuscular Volume 92.8 fL (81.0-99.0); Mean Platelet Volume 9.1 fL (9.5-13.5); Monocytes Absolute Auto 0.3 10^3/uL (0.3-0.8); Monocytes Percent Auto 6.8 % (1.7-12.0); Neutrophils Absolute Auto 2.8 10^3/uL (1.4-6.5); Neutrophils Percent Auto 61.6 % (43.0-75.0); Platelet Count 189 10^3/uL (150-450); Red Blood Count 5.02 10^6/uL (4.20-5.40); Red Cell Distribution Width 12.3 % (11.0-15.0); White Blood Count 4.5 10^3/uL (4.0-11.0)
--- OUTSIDE RECORDS SUMMARY | 2024-08-05 10:34 | XMS_ITS | CCD ---
Author Organization [facility] Care Team Providers Care Central Office Frame Wirer Name Role Phone UNKNOWN, PROVIDER Unavailable Unavailable ZIGGY DEJESUS Unavailable Unavailable UNKNOWN, PROVIDER Unavailable Unavailable ZIGGY DEJESUS Unavailable Unavailable Ziggy Dejesus Primary Care Provider [phone] Ziggy Dejesus Unavailable Unavailable Unavailable Ziggy Dejesus MD Primary Care Provider [phone] Unavailable Unavailable Ziggy Dejesus Primary Care Physician DR CELSO GARIBAY Admitting Unavailclaire GARIBAY, DR CELSO Orozco Attending Unavailabl e DR ZIGGY DEJESUS Primary Care Unavailable KELLY, DR CELSO Orozco Consulting Unavailclaire e DR ZIGGY DEJESUS Primary Care Unavailable DR ZIGGY DEJESUS Admitting Unavailable DR ZIGGY DEJESUS Attending Unavailable DR ZIGGY DEJESUS Consulting Unavailable MALU, DR RONAN Guzman Consulting Unavailable GENTRY HUERTA Consulting Unavailable HAYES, INGA Consulting Unavailable TJCDR MORALES Admitting Unavailable MISC, DR MORALES Attending Unavailable DR ZIGGY DEJESUS Primary Care Unavailable DR ZIGGY DEJESUS Consulting Unavailable DR ZIGGY DEJESUS Admitting Unavailable DR ZIGGY DEJESUS Attending Unavailable DR ZIGGY DEJESUS Primary Care Unavailable DR ZIGGY DEJESUS Consulting Unavailable DR ZIGGY DEJESUS Admitting Unavailable SEB, DR RAMIREZ Attending Unavailable DR ZIGGY DEJESUS Primary Care Unavailable DR ZIGGY DEJESUS Consulting Unavailable MD Ziggy Dejesus Primary Care Provider [phone] MD Evert Bruno Attending Provider Evert Bruno Unavailable MD Ziggy Dejesus Primary Care Provider [phone] MD Evert Bruno Attending Provider [phone] Asaad, Imad Attending Unavailable Asaad, Imad Admitting Unavailable Hoy, Ziggy M Primary Care Unavailable Asaad, Imad Attending Unavailable Asaad, Imad Admitting Unavailable Hoy, Ziggy M Primary Care Unavailable Asaad, Imad Attending Unavailable Asaad, Imad Admitting Unavailable Hoy, Ziggy M Primary Care Unavailable Asaad, Imad Attending Unavailable Hoy, Ziggy M Primary Care Unavailable Asaad, Imad Admitting Unavailable Ziggy Dejesus MD Primary Care Provider [phone] GABY CHAHAL Admitting Unavail able GABY CHAHAL Attending Unavail able HOY, ZIGGY M Primary Care Unavailable HOY, ZIGGY M Primary Care Unavailable Ziggy Dejesus MD Primary Care Provider CELSO GARIBAY Attending Unavailable ZIGGY DEJESUS MURIEL [...] Unavailable HOY, ZIGGY M Primary Care Unavailable JENNIFER MARTINO Attending Unavailable JNENIFER MARTINO Attending Unavailable JENNIFER MARTINO Attending Unavailable Allergies Allergy Classification Reported Allergen(s) Allergy Type Date of Onset Reaction(s) Facility (20 sources) Baclofen; 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: [Baclofen TABS] Drug Allergy 017 Other (See Comments), Shortness of breath [place], [place] (17 sources) Latex; 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: [LATEX] Propensity to adverse reactions to drug 006 Anaphylaxis, Shortness Of Breath, Anaphylaxis (disorder) [place] (13 sources) Penicillins; 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: [penicillins] Propensity to adverse reactions to drug Hives, Anaphylaxis (disorder) [place] (3 sources) rosuvastatin Drug Allergy 019 [place] (20 sources) Sulfamethoxazole / Trimethoprim; 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: [Bactrim TABS] Drug Allergy 019 [place], [place] (11 sources) natural latex rubber Allergy to substance (finding) Shortness of breath [facility] 250 DO Work Phone: (11 sources) Penicillins; 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: [Penicillins] Allergy to drug (finding) Rash [facility] 250 DO Work Phone: (15 sources) rosuvastatin; 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: [Crestor TABS] Drug Allergy 023 Elevated liver enzymes level (finding), Other [facility] (15 sources) Sulfonamides (Antibiotic); 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: [Sulfa Drugs] Allergy to drug (finding) [facility] (11 sources) levoFLOXacin; 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: [levofloxacin] Drug Allergy 017 Other (See Comments), Candidiasis (disorder) [facility] Work Phone: (4 sources) Phenazopyridine; 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: [PHENAZOPYRIDINE HCL] Drug Allergy 006 [facility] Work Phone: (3 sources) Simvastatin; 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: [SIMVASTATIN] Drug Allergy 006 [facility] Work Phone: (2 sources) Sulfonamides (Antibiotic) Propensity to adverse reactions to drug 022 Other (See Comments) [facility] (7 sources) Tobramycin; 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: [tobramycin] Drug Allergy 023 Eruption of skin (disorder) [facility] (1 source) Baclofen Drug Allergy [facility] Repository (1 source) Latex Drug allergy (disorder) [facility] Repository (5 sources) levoFLOXacin; 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: [Levaquin] Drug Allergy thrush [facility] Repository (1 source) Penicillins Drug allergy (disorder) [facility] Rep[facility] (1 source) rosuvastatin Drug Allergy [facility] (1 source) Sulfonamides (Antibiotic) Drug allergy (disorder) [facility] Repository (9 sources) rosuvastatin; 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: [rosuvastatin] Drug Allergy 017 Gastrointestinal Upset [facility] (4 sources) Sulfamethoxazole; 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: [sulfamethoxazole] Drug Allergy [facility] (6 sources) Trimethoprim; 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: [trimethoprim] Drug Allergy [facility] (5 sources) Fenofibrate; 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: [FENOFIBRATE] Drug Allergy 009 ([place]) 08/08/2011 [facility] [employer] (3 sources) Penicillin Drug Allergy ([place]) 08/08/2011 [employer] Other (4 sources) Substance with sulfonamide structure and antibacterial mechanism of action (substance) Drug allergy 023 Shortness of breath [employer] Other (1 source) Baclofen Drug Allergy [facility] Repository (1 source) Latex Drug allergy (disorder) [facility] Repository (1 source) levoFLOXacin Drug Allergy [facility] Repository (1 source) Penicillins Drug allergy (disorder) [facility] Repository (2 sources) Penicillins Propensity to adverse reactions to drug Hives, Rash [facility] [employer] (1 source) Tobramycin Drug Allergy 023 Rash [facility] [employer] (4 sources) Sulfonamides (Antibiotic); 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: [SULFA (SULFONAMIDE ANTIBIOTICS)] Propensity to adverse reactions to drug (disorder) [facility] 3 Repository (3 sources) Fenofibrate; 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: [FENOFIBRATE MICRONIZED] Drug Allergy 009 [facility] Repository (1 source) fluvastatin; 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: [FLUVASTATIN] Drug Allergy [facility] Repository (1 source) natural latex rubber; 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: [LATEX, NATURAL RUBBER] Propensity to adverse reactions to drug (disorder) [facility] Repository (1 source) Phenazopyridine; 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: [PHENAZOPYRIDINE] Drug Allergy [facility] Repository Medications Current Medications Medication Drug [...] Start: 04-17-2018 take 1 capsule by mo [facility] four times daily cevimeline (Evoxac) 30 mg [...] 0 Active take 2 tablets by mo [facility] once daily citalopram (CELEXA) 10 MG tablet [...] mouth two times weekly Vitamin D (Ergocalciferol) 95811 UNIT 1 capsule Orally TWICE a Week for 90 day(s) May, Active estradiol 0.1 mg/ml vaginal cream (1 source) Estrogen Start: 04-10-20 Estrace 0.1 mg/g Cream See Instructions, 42.5 gm, Refill(s) 6, apply a pea-sized amount vaginally and around the urethra nightly x 3 weeks, then 3x per week thereafter, [id number], 160, cm, 04/10/24 15:13:00 EDT, Height/Length Dosing, [...] 04-30-2020 fluticasone 0. 05 mg/inh Nasal [place] Refill(s) 0 Start Date: 04/30/20 Status: Ordered fluticasone 0.05 mg/inh Nasal [place] (2 sources) Start: 04-30-2020 fluticasone 0.05 mg/inh Nasal [place] Refill(s) 0 Start Date: 04/30/20 Status: Ordered [...] day(s), # 45 tab(s), Refills(s) 3, Pharmacy: [facility], 160, cm, 06/02/22 8:29:00 EDT, Height/Length Dosing, 61.2, kg, 06/02/22 8:29:00 EDT, Weight Dosing Start Date: 10/19/23 Stop Date: 07/13/24 Status: Ordered Start: 11-01-2022 [...] Daily, # 90 tab(s), Refills(s) 3, Pharmacy: [facility], 160, cm, 05/27/21 8:19:00 EDT, [...] day(s), # 30 tab(s), Refills(s) 11, Pharmacy: [facility] #[id number], 160, cm, 04/10/24 15:13:00 EDT, Height/Length Dosing, [...] mouth 2 times a day. 0 Active Jdhgkirdpnvq-Uio-Ggm n-Fa-Vit K (Bariatric Multivitamins) 45 mg iron- 800 mcg-120 mcg Capsule (3 sources) Start: 3 take 1 capsule by mouth twice daily Multivitamin-Min- Iron-Fa-Vit K (Bariatric Multivitamins) 45 mg iron- 800 mcg-120 mcg Capsule Active 1 CAP PO Twice daily November 01, 2022 1:00am Start: 11-01-2022 take 1 capsule by mo [facility] twice daily Motqtwrgpnps-Unb-Dvus-Fa-Vit K (Bariatri c Multivitamins) 45 mg iron- [...] tablet Indications: Atherosclerosis of coronary artery of [place] heart without angina pectoris, unspecified vessel or lesion type Place 1 tablet (0.4 mg) under the tongue every 5 minutes if needed for chest pain. 90 tablet 3 08/14/2023 Active Nitrostat 0.4 MG 1 tablet under the tongue Sublingual as directed for 30 day(s) Active nystatin 100 unt/mg topical powder (12 sources) Polyene Antifungal Start: 05-05-2020 nystatin ([facility]) 100,000 unit/gram powder apply topically to affected area twice a day if needed 0 05/05/2020 Active omega-3 acid ethyl esters (group home) 1000 mg oral capsule (3 sources) take [...] April 22, 2018 12:01am polyethylene glycol 3350 749567 mg / potassium chloride 2970 mg / sodium bicarbonate 6740 mg / sodium chloride 5860 mg / sodium sulfate 00976 mg powder for oral solution (3 sources) [...] day(s), # 180 cap(s), Refills(s) 3, Pharmacy: [facility], 160, cm, 05/27/21 8:19:00 EDT, Height/Length Dosing, 61, kg, 05/27/21 8:19:00 EDT, Weight Dosing Start Date: 03/14/22 Stop Date: 03/09/23 Status: Ordered Start: 04-17-2018 take 1 capsule by [facility] once daily tamsulosin 0.4 mg Cap 0.4 mg = 1 cap(s), Oral, Daily, # 90 cap(s), Refills(s) 3, Pharmacy: [facility], 160, cm, 06/02/22 8:29:00 EDT, Height/Length [...] day(s), # 30 tab(s), Refills(s) 11, Pharmacy: [facility] #[id number], 160, cm, 04/10/24 15:13:00 EDT, Height/Length Dosing, [...] Start: 04-17-2018 take 2 tablets by mo [facility] every four hours Oxycodone-Acetaminophen (Percocet) 5-325 mg tablet Active 2 TAB PO Q4H April 17, 2018 ascorbic acid 226 mg / beta carotene 85154 unt / cuprous oxide 0.8 mg / [...] Sun06/18/23 at 1449, Until Discontinued, Pain Severe (7-10) [...] / neomycin 3.5 mg/ml / polymyxin b 57659 unt/ml ophthalmic suspension (3 sources) Aminoglycoside Antibacterial, Polymyxin-class Antibacterial, Corticosteroid Start: 06-13-2021 take 2 drop(s) into the eye(s) four times daily Neomycin-Polymyxin- HC 3.5-93510-9 Ophthalmic Suspension instill 2 drops INTO AFFECTED [...] Not-Taking Versabase Cream (1 source) Start: 09-07-20 20 Versabase Cream Quantity: 15 Refills: 0 Ordered: [...] sources) Coronary atherosclerosis; 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: [Coronary atherosclerosis of [place] coronary artery] Onset: 2 Chronic Coronary atherosclerosis [...] 3 06-18-2023 Chronic Other aftercare (1 source) 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; 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 patient needs an 8 to 10 wk f/u. Appointment due by 06/19/2024 in [place] with [facility] SCHEDULED JUL 03, 2024 [facility] Urology Office/Clinic Noteon 04-10-2024 Urology Office/Clinic Note [...] E&M of Est. Patient High 40-54 Min 49185 Urnls Dip Stick Auto w/o Microscopy POC 89493 2. OAB (overactive bladder) (N32.81: Overactive bladder) [...] E&M of Est. Patient High 40-54 Min 46109 3. Urethral pain (R39.89: Other symptoms and [...] E&M of Est. Patient High 40-54 Min 23938 Orders: estradiol topical, See Instructions, 42.5 gm, Refill(s) 6, apply a pea-sized amount vaginally and around the urethra nightly x 3 weeks, then 3x per week thereafter, [facility] #[id number], 160, cm, 04/10/24 15:13:00 EDT, Height/Length Dosing, 74, kg, 04/10/24 15:13... mirabegron, 25 mg = 1 tab(s), Oral, Daily, do not fill both mirabegron AND vibegron. only fill whichever has lower co-pay., X 30 day(s), # 30 tab(s), Refills(s) 11, Pharmacy: [facility] #[id number], 160, cm, 04/10/24 15:13:00 EDT, Height/Length Dosing, 74, k... vibegron, 75 mg = 1 tab(s), Oral, Daily, X 30 day(s), # 30 tab(s), Refills(s) 11, Pharmacy: [facility] #[id number], 160, cm, 04/10/24 15:13:00 EDT, Height/Length Dosing, 74, kg, 04/10/24 15:13:00 EDT, Weight Dosing Total time spent reviewing previous notes/results/externa l documents, preparing the chart, conducting the encounter with the patient and family, ordering tests/medications, and documenting the encounter was 40 minutes. Follow-up With When Contact Information SALENA REDDY, JENNIFER López, CARLOS Within 3 months [address] [place] [address] Additional Instructions: Patient Education Kidney Stones, Ejoi-gf-Brfu Problem List/Past Medical History Ongoing Anticoagulated Feeling of incomplete b (more content not included)... Normal [facility] Comment on above: Result Comment: Elec tronically Signed By: SALENA REDDY, JENNIFER López\.pepe\Date and Time Signed: 04/10/24 16:09 EDT Glucose Glucometer (BldC) [M ass/Vol]on 03-06-2024 Glucose [Mass/Vol] 79 mg/dL Normal 65-[address] [facility] 36on 02-28-2024 36 Scheduled EGD/EUS 03/06/24 @1130, PTH, Dr. Cesar, [facility] ph: 02/29/24 @1000, #[phone], Clinic appt 02/27/24 w/ Sherita. Normal [facility] [id number] 2023 ALPHA-1 ANTITRYPSIN 145 mg/dL Normal 90-200 [facility] Comment on above: Result Comment: To c onvert to umol/L, multiply mg/dL by 0.185 Performed By: [facility] [address] [place] [address] Aging Room Hand: Sarwat Gorman MD, PhD CLIA Number: [id number] Performed By: #### L [id number] #### [facility] (BEAKER) [address] [place] [address] ANAon 02-27-2024 CHAY TITER <1:40 Normal <=1:40 [facility] Comment on above: Result Comment: Test performed using BRIJESH IFA CHAY Hep-2 Test, a pre-standardized assay designed for the qualitative and semi-quantitative detection of antinuclear antibodies. Performed By: #### L [id number] #### [facility] (BEAKER) [address] [place] [address] ANTI-SMOOTH MUSCLE ANTIBODY TITERon 02-27-2024 SMOOTH MUSCLE AB, IGG TITER <1:20 Normal <1:20 [facility] Comment on above: Result Comment: INTE RPRETIVE INFORMATION: Smooth Muscle Ab, IgG Titer Less than 1:20 ........ Negative - No antibody detected. 1:20 - 1:80 .......... Weak Positive - Suggest repeat in two to three weeks with fresh specimen. 1:160 or greater ...... Positive - Suggestive of autoimmune hepatitis or chronic active hepatitis. Performed By: [facility] [address] [place] [address] Aging Room Hand: Sarwat Gorman MD, PhD CLIA Number: [id number] Performed By: #### L [id number] #### [facility] [address] [place] [address] CBC WITH AUTO DIFFERENTIALon 02-27-2024 Basophils (Bld) [#/Vol] 0.01 10*3/uL Normal 0.00-0.20 [facility] Comment on above: Performed By: #### L [id number] #### [facility] (BEAKER) [address] [place] [address] Basophils/100 WBC (Bld) 0.2 % Normal 0.0-1.0 [facility] Comment on above: Performed By: #### L [id number] #### [facility] (BEAKER) [address] [place] [address] Eosinophils (Bld) [#/Vol] 0.17 10*3/uL Normal 0.00-0.50 [facility] Comment on above: Performed By: #### L [id number] #### [facility] (BEAKER) [address] [place] [address] Eosinophils/100 WBC (Bld) 3.2 % Normal 0.0-6.0 [facility] Comment on above: Performed By: #### L [id number] #### [facility] (BE[facility]ER) [address] [place] [address] Erythrocyte distribution width (RBC) [Ratio] 12.6 % Normal 11.5-15.0 [facility] Comment on above: Performed By: #### L [id number] #### [facility] (BE[facility]ER) [address] [place] [address] ERYTHROCYTE MEAN CORPUSCULAR HEMOGLOBIN CONCENTRATION (G/DL) BY AUTOMATED 33.6 g/dL Normal 32.0-35.0 [facility] Comment on above: Performed By: #### L [id number] #### [facility] (BE[facility]ER) [address] [place] [address] Hematocrit (Bld) [Volume fraction] 44.0 % Normal 36.0-48.0 [facility] Comment on above: Performed By: #### L [id number] #### [facility] (BEAKER) [address] [place] [address] Hemoglobin (Bld) [Mass/Vol] 14.8 g/dL Normal 12.0-15.0 [facility] Comment on above: Performed By: #### L [id number] #### [facility] ([facility] [address] [place] [address] Immature granulocytes (Bld) [#/Vol] 0.01 10*3/uL Normal 0.00-0.20 [facility] Comment on above: Performed By: #### L [id number] #### [facility] (BE[facility]ER) [address] [place] [address] Immature granulocytes/100 WBC (Bld) 0.2 % Normal 0.0-1.0 [facility] Comment on above: Performed By: #### L [id number] #### [facility] (BE[facility]ER) [address] [place] [address] Lymphocytes (Bld) [#/Vol] 1.19 10*3/uL Low 1.20-4.00 [facility] Comment on above: Performed By: #### L [id number] #### [facility] (BE[facility]ER) [address] [place] [address] Lymphocytes/100 WBC (Bld) 22.3 % Normal 20.0-45.0 [facility] Comment on above: Performed By: #### L [id number] #### [facility] ([facility]) [address] [place] [address] MCH (RBC) [Entitic mass] 30.2 pg Normal 27.0-33.0 [facility] Comment on above: Performed By: #### L [id number] #### [facility] ([facility]) [address] [place] [address] MCV (RBC) [Entitic vol] 89.8 fL Normal 82.0-98.0 [facility] Comment on above: Performed By: #### L [id number] #### [facility] ([facility]) [address] [place] [address] Monocytes (Bld) [#/Vol] 0.53 10*3/uL Normal 0.10-1.00 [facility] Comment on above: Performed By: #### L [id number] #### [facility] ([facility]) [address] [place] [address] Monocytes/100 WBC (Bld) 9.9 % Normal 5.0-12.0 [facility] Comment on above: Performed By: #### L [id number] #### [facility] ([facility]) [address] [place] [address] Neutrophils (Bld) [#/Vol] 3.42 10*3/uL Normal 1.60-7.60 [facility] Comment on above: Performed By: #### L [id number] #### [facility] ([facility]) [address] [place] [address] Neutrophils/100 WBC (Bld) 64.2 % Normal 40.0-72.0 [facility] Comment on above: Performed By: #### L [id number] #### [facility] ([facility] [address] [place] [address] NRBC (PER 100 WBCS) BY AUTOMATED COUNT 0.0 % Normal 0 [facility] Comment on above: Performed By: #### L [id number] #### [facility] ([facility]) [address] [place] [address] PLATELETS (10*3/UL) IN BLOOD AUTOMATED COUNT 198 10*3/uL Normal 150-400 [facility] Comment on above: Performed By: #### L [id number] #### [facility] ([facility]) [address] [place] [address] RBC (Bld) [#/Vol] 4.90 10*6/uL Normal 3.80-5.00 [facility] Comment on above: Performed By: #### L [id number] #### [facility] ([facility]) [address] [place] [address] WBC (Bld) [#/Vol] 5.33 10*3/uL Normal 4.00-10.60 [facility] Comment on above: Performed By: #### L [id number] #### [facility] ([facility]) [address] [place] [address] COMPREHENSIVE METABOLIC PANE Curtis 02-27-2024 Albumin [Mass/Vol] 4.4 g/dL Normal 3.5-5.7 [facility] Comment on above: Performed By: #### L [id number] #### [facility] ([facility]) [address] [place] [address] ALP [Catalytic activity/Vol] 84 U/L Normal 34-104 [facility] Comment on above: Performed By: #### L [id number] #### [facility] ([facility]) [address] [place] [address] ALT [Catalytic activity/Vol] 43 U/L Normal 7-52 [facility] Comment on above: Performed By: #### L [id number] #### [facility] ([facility]) [address] [place] [address] Anion gap [Moles/Vol] 11 mmol/L Normal 7-20 [facility] Comment on above: Performed By: #### L [id number] #### [facility] ([facility]) [address] [place] [address] AST [Catalytic activity/Vol] 33 U/L Normal 13-39 [facility] Comment on above: Performed By: #### L [id number] #### [facility] ([facility]) [address] [place] [address] Bilirubin [Mass/Vol] 0.4 mg/dL Normal 0.3-1.0 [facility] Comment on above: Performed By: #### L [id number] #### [facility] ([facility]) [address] [place] [address] Calcium [Mass/Vol] 9.9 mg/dL Normal 8.6-10.3 [facility] Comment on above: Performed By: #### L [id number] #### [facility] [address] [place] [address] Chloride [Moles/Vol] 102 mmol/L Normal 98-107 [facility] Comment on above: Performed By: #### L [id number] #### [facility] [address] [place] [address] CO2 [Moles/Vol] 29 mmol/L Normal 21-31 [facility] Comment on above: Performed By: #### L [id number] #### [facility] ([facility] [address] [place] [address] Creatinine [Mass/Vol] 0.62 mg/dL Normal 0.60-1.20 [facility] Comment on above: Performed By: #### L [id number] #### [facility] [address] [place] [address] GLOMERULAR FILTRATION RATE ML/MIN/1.73 SQ M.PREDICTED 102.5 mL/min/1.73m*2 Normal >60.0 [facility] Comment on above: Result Comment: [facility]???s estimated glomerular filtration rate (eGFR) will [...] individuals. Performed By: #### L [id number] #### [facility] ([facility]) [address] [place] [address] Glucose [Mass/Vol] 90 mg/dL Normal 70-100 [facility] Comment on above: Performed By: #### L [id number] #### [facility] ([facility]) [address] [place] [address] Potassium [Moles/Vol] 4.2 mmol/L Normal 3.5-5.1 [facility] Comment on above: Performed By: #### L [id number] #### [facility] ([facility]) [address] [place] [address] Protein [Mass/Vol] 6.9 g/dL Normal 6.0-8.3 [facility] Comment on above: Performed By: #### L [id number] #### [facility] ([facility]) [address] [place] [address] Sodium [Moles/Vol] 138 mmol/L Normal 136-145 [facility] Comment on above: Performed By: #### L [id number] #### [facility] ([facility]) [address] [place] [address] [address] Urea nitrogen [Mass/Vol] 27 mg/dL High 7-25 [facility] Comment on above: Performed By: #### L [id number] #### [facility] ([facility]) [address] [place] [address] UREA NITROGEN/CREATININE (MASS RATIO) IN SER/PLAS 43.5 Normal [facility] Comment on above: Performed By: #### L [id number] #### [facility] ([facility]) [address] [place] [address] COPPER, SERUMon 02-27-2024 COPPER 125.0 ug/dL Normal 80.0-155.0 [facility] Comment on above: Result Comment: INTE [...] developed and its performance characteristics determined by Dinsmore Steele. It has not been cleared or approved by the US Food and Drug Administration. This test was performed in a CLIA certified laboratory and is intended for clinical purposes. Performed By: Dinsmore Steele [address] [place] [address] Aging Room Hand: Sarwat Gorman MD, PhD CLIA Number: [id number] Performed By: #### L [id number] #### [facility] ([facility]) [address] [place] [address] FERRITINon 02-27-2024 FERRITIN (NG/ML) IN SER/PLAS 32.0 ng/mL Normal 11.0-307.0 [facility] Comment on above: Performed By: #### L [id number] #### [facility] ([facility]) [address] [place] [address] FOLATEon 02-27-2024 FOLATE (NG/ML) IN SER/PLAS 39.0 ng/mL Normal 6.6-1000 [facility] Comment on above: Performed By: #### L AB69 #### [facility] ([facility]) [address] [place] [address] HEMOGLOBIN A1Con 02-27-2024 Glucose [Mass/Vol] 100 mg/dL Normal [facility] Comment on above: Performed By: #### L AB90 #### [facility] [address] [place] [address] HbA1c (Bld) [Mass fraction] 5.1 % Normal 4.0-6.0 [facility] Comment on above: Performed By: #### L AB90 #### [facility] [address] [place] [address] HEPATITIS PANEL, ACUTEon HEPATITIS A VIRUS IGM AB PRESENCE IN SER/PLAS Non-Reactive Normal Nonreactive [facility] Comment on above: Performed By: #### L [id number] #### [facility] ([facility]) [address] [place] [address] HEPATITIS B VIRUS CORE AB (PRESENCE) IN SER/PLAS BY IMM Non-Reactive Normal Nonreactive [facility] Comment on above: Performed By: #### L [id number] #### [facility] ([facility]) [address] [place] [address] HEPATITIS B VIRUS SURFACE AG PRESENCE IN SERUM Non-Reactive Normal Nonreactive [facility] Comment on above: Performed By: #### L [id number] #### [facility] ([facility]) [address] [place] [address] HEPATITIS C VIRUS AB PRESENCE IN SERUM Non-Reactive Normal Nonreactive [facility] Comment on above: Performed By: #### L [id number] #### [facility] ([facility]) [address] [place] [address] IGAon 02-27-2024 Magnesium [Mass/Vol] 108 mg/dL Normal 60-413 [facility] Comment on above: Performed By: #### L [id number] #### [facility] ([facility]) [address] [place] [address] IGG 1, 2, 3, AND 4on 024 IgG subclass 1 (S) [Mass/Vol] 293 mg/dL Normal 240-1118 [facility] Comment on above: Result Comment: REFE RENCE INTERVAL: Immunoglobulin G Subclass 1 The total IgG (mg/dL) can be derived from the sum of the subclass IgG1, IgG2, IgG3, and IgG4 values. However, a confirmatory and more precise total IgG is available by the turbidimetric method of quantitation for total IgG. Refer to test Immunoglobulin G, Serum ([id number]). Access complete set of age- and/or gender-specific reference intervals for this test in the [facility] Test Directory ([employer]). Performed By: #### L [id number] #### [facility] ([facility]) [address] [place] [address] IgG subclass 2 (S) [Mass/Vol] 160 mg/dL Normal 124-549 [facility] Comment on above: Result Comment: REFE RENCE INTERVAL: Immunoglobulin G Subclass 2 Access complete set of age- and/or gender-specific reference intervals for this test in the [facility] Test Directory ([employer]). Performed By: #### L [id number] #### [facility] ([facility]) [address] [place] [address] IgG subclass 3 (S) [Mass/Vol] 32 mg/dL Normal 21-134 [facility] Comment on above: Result Comment: REFE RENCE INTERVAL: Immunoglobulin G Subclass 3 Access complete set of age- and/or gender-specific reference intervals for this test in the [facility] Test Directory ([employer]). Performed By: #### L [id number] #### [facility] ([facility]) [address] [place] [address] IgG subclass 4 (S) [Mass/Vol] 21 mg/dL Normal 1-123 [facility] Comment on above: Result Comment: REFE RENCE INTERVAL: Immunoglobulin G Subclass 4 Access complete set of age- and/or gender-specific reference intervals for this test in the [facility] Test Directory ([employer]). Performed By: Dinsmore Steele [address] [place] [address] Aging Room Hand: Sarwat Gorman MD, PhD CLIA Number: [id number] Performed By: #### L [id number] #### [facility] [address] [place] [address] IRON AND TIBCon 02-27-2024 IRON (UG/DL) IN SER/PLAS 56 ug/dL Normal 50-212 [facility] Comment on above: Performed By: #### L [id number] #### [facility] ([facility]) [address] [place] [address] IRON BINDING CAPACITY (UG/DL) IN SER/PLAS 364 ug/dL Normal 250-450 [facility] Comment on above: Performed By: #### L [id number] #### [facility] ([facility]) [address] [place] [address] IRON BINDING CAPACITY.UNSATURATED (UG/DL) IN SER/PLAS 308.0 ug/dL Normal 155.0-355.0 [facility] Comment on above: Performed By: #### L [id number] #### [facility] ([facility]) [address] [place] [address] IRON SATURATION (%) IN SER/PLAS 15 % Low 20-50 [facility] Comment on above: Performed By: #### L [id number] #### [facility] ([facility]) [address] [place] [address] LIPID PANELon 02-27-2024 CHOL/HDL 2.9 mg/dL Normal [facility] Comment on above: Performed By: #### L [id number] #### [facility] ([facility]) [address] [place] [address] Cholesterol [Mass/Vol] 111 mg/dL Low 120-200 [facility] Comment on above: Performed By: #### L [id number] #### [facility] ([facility]) [address] [place] [address] Magnesium [Mass/Vol] 144 mg/dL Normal 40-149 [facility] Comment on above: Result Comment: TRIG LYCERIDE REFERENCE RANGE: 20 YEARS AND OLDER CARDIOVASCULAR RISK LESS THAN 150 mg/dL LOW RISK 150 TO 199 mg/dL BORDERLINE RISK 200 mg/dL AND GREATER HIGH RISK Performed By: #### L [id number] #### [facility] ([facility]) [address] [place] [address] Magnesium [Mass/Vol] 44 mg/dL Normal 0-160 [facility] Comment on above: Performed By: #### L [id number] #### [facility] [address] [facility] [place] [address] Magnesium [Mass/Vol] 38 mg/dL Normal 23-92 [facility] Comment on above: Performed By: #### L [id number] #### [facility] [address] [place] [address] NON HDL CHOL. (LDL+VLDL) 73 Normal [facility] Comment on above: Performed By: #### L [id number] #### [facility] ([facility]) [address] [place] [address] TOTAL VLDL-C 29 mg/dL Normal 0-40 [facility] Comment on above: Performed By: #### L [id number] #### [facility] ([facility]) [address] [place] [address] LIVER FIBROSIS CHRONIC VIRAL HEPATITISon 02-27-2024 [id number] , FIBROMETER 328 mg/dL High 131-293 [facility] Comment on above: Performed By: #### L [id number] #### [facility] ([facility]) [address] [place] [address] ALT [Catalytic activity/Vol] 57 U/L High 5-40 [facility] Comment on above: Performed By: #### L [id number] #### [facility] ([facility]) [address] [place] [address] Amylase [Catalytic activity/Vol] 18 U/L Normal 7-33 [facility] Comment on above: Performed By: #### L [id number] #### [facility] ([facility]) [address] [place] [address] AST [Catalytic activity/Vol] 41 U/L High 9-40 [facility] Comment on above: Performed By: #### L [id number] #### [facility] ([facility]) [address] [place] [address] CIRRHOMETER PATIENT SCORE 0.08 Normal [facility] Comment on above: Performed By: #### L [id number] #### [facility] ([facility]) [address] [place] [address] EER FIBROMETER REPORT See Note Normal [facility] Comment on above: Result Comment: Auth orized individuals can access the [facility] Enhanced Report using the following link: [email or web address] Performed By: #### L [id number] #### [facility] ([facility]) [address] [place] [address] FIBROMETER INTERPRETATION See Report Normal [facility] Comment on above: Result Comment: [17] [13] INTERPRETIVE INFORMATION: Fibrometer Interpretation Calculations for the final report are based on accurate data for age, gender, and platelet count. If any of this information needs to be corrected, please contact [facility] to request a recalculation. Client Services may be contacted at . The [employer] FibroMeter profile serves as a surrogate marker [...] developed and its performance characteristics determined by Dins[facility] Steele. It has not been cleared or approved by the US Food and Drug Administration. This test was performed in a CLIA certified laboratory and is intended for clinical purposes. Performed By: Dinsmore Steele [address] [place] [address] Aging Room Hand: Sarwat Gorman MD, PhD CLIA Number: [id number] Performed By: #### L [id number] #### [facility] ([facility]) [address] [place] [address] FIBROMETER PATIENT SCORE 0.62 [facility] Comment on above: Performed By: #### L [id number] #### [facility] ([facility]) [address] [place] [address] FIBROMETER PLATELET COUNT 198 k/uL Normal [facility] Comment on above: Performed By: #### L [id number] #### [facility] ([facility]) [address] [place] [address] FIBROMETER PROTHROMBIN INDEX 81 % Low 90-120 [facility] Comment on above: Performed By: #### L [id number] #### [facility] ([facility]) [address] [place] [address] FIBROSIS METAVIR CLASSIFICATION F2[F1-F3] [facility] Comment on above: Result Comment: INTE RPRETIVE [...] possible Performed By: #### L [id number] #### [facility] ([facility]) [address] [place] [address] INFLAMETER METAVIR CLASSIFICATION A1/A2 [facility] Comment on above: Result Comment: INTE RPRETIVE INFORMATION: InflaMeter Metavir Classification InflaMeter (activity score) comments A0/A1 Equal probability between A0 and A1 A1/A2 Equal probability between A1 and A2 A2/A3 Equal probability between A2 and A3 Performed By: #### L [id number] #### [facility] ([facility]) [address] [place] [address] INFLAMETER PATIENT SCORE 0.62 Normal [facility] Comment on above: Performed By: #### L [id number] #### [facility] ([facility]) [address] [place] [address] Urea nitrogen [Mass/Vol] 28 mg/dL High 7-20 [facility] Comment on above: Performed By: #### L [id number] #### [facility] ([facility]) [address] [place] [address] Labon 02-27-2024 Lab [id number] Jose Alberto Saleem 1965 F Date Provider Department Center 02/27/2024 [facility] MP LAB RESOURCE MP DRAW Medical [facility] Family History Problem Relation Age of Onset Hyperlipidemia Mother Hyperlipidemia Father Hyperlipidemia Brother Heart attack Brother Family Status - Relation Status Age at Mother Father Brother Brother Normal [facility] MITOCHONDRIAL ANTIBODIES, M2 on 02-27-2024 MITOCHONDRIAL M2 ANTIBODY 7.2 Units Normal 0.0-24.9 [facility] Comment on above: Result Comment: REFE [...] does not rule out PBC. Performed By: Dinsmore Steele [address] [place] [address] Aging Room Hand: Sarwat Gorman MD, PhD CLIA Number: [id number] Performed By: #### L [id number] #### [facility] ([facility]) [address] [place] [address] Office Visiton 02-27-2024 Follow-up visit [id number] Jose Alberto Saleem 1965 F Date Provider Department Center 02/27/2024 Francisco-DANIELLE [facility] Family History Problem Relation Age of Onset Hyperlipidemia Mother Hyperlipidemia Father Hyperlipidemia Brother Heart attack Brother Family Status - Relation Status Age at Mother Father Brother Brother Level of Service:11672 [place] OFFICE/OUTPATIENT NEW MODERATE MDM 45 MINUTES (GC) Reason for Visit and Comments: New Patient [632] Pancreatitis [068807] Normal [facility] PROTIME-INRon 02-27-2024 INR IN PPP BY COAGULATION ASSAY 1.08 Normal 0.90-1.10 [facility] Comment on above: Result Comment: ACCC [...] 1995;108:231S-246S. Performed By: #### L [id number] #### [facility] ([facility]) [address] [place] [address] PROTHROMBIN TIME (PT) IN PPP BY COAGULATION ASSAY 14.0 Seconds Normal 12.3-14.8 [facility] Comment on above: Performed By: #### L [id number] #### [facility] ([facility]) [address] [place] [address] TISSUE TRANSGLUTAMINASE, IGA on 02-27-2024 TISSUE TRANSGLUTAMINASE, IGA <1.02 Normal 0.00-4.99 [facility] Comment on above: Result Comment: INTE [...] indicate a response to therapy. Performed By: Dinsmore Steele [address] [place] [address] Aging Room Hand: Sarwat Gorman MD, PhD CLIA Number: [id number] Performed By: #### L [id number] #### [facility] ([facility]) [address] [place] [address] TSH3 REFLEX TO FT4on 024 THYROTROPIN (MIU/L) IN SER/PLAS BY DETECTION LIMIT <= 0.05 MIU/L 2.02 mIU/L Normal 0.34-5.60 [facility] Comment on above: Performed By: #### L [id number] #### [facility] ([facility]) [address] [place] [address] VITAMIN B12on 02-27-2024 Cobalamin (Vitamin B12) [Mass/Vol] 1862 pg/mL High 180-914 [facility] Comment on above: Result Comment: REFE RENCE RANGES: 180-914 pg/mL Normal 145-179 pg/mL Indeterminate <145 pg/mL Deficient Performed By: #### L [id number] #### [facility] ([facility]) [address] [place] [address] VITAMIN D 25 HYDROXYon 02-26 CALCIDIOL (25 [place] VITAMIN D3) (NG/ML) IN SER/PLAS 62.1 ng/mL Normal 30.0-80.0 [facility] Comment on above: Result Comment: >80. 0 Toxicity possible Performed By: #### L [id number] #### [facility] ([facility]) [address] [place] [address] Orders Onlyon 02-12-2024 Orders Only [id number] Jose Alberto Saleem 1965 F Date Provider Department Center 02/12/2024 [id number], HISTORICAL MP GI [facility] No family history on file Normal [facility] Lab Reportson 01-23-2024 Lab Reports [id number] .00TIFF Normal [facility] Lab Reports [id number] .00TIFF Normal [facility] Lab Reportson 01-22-2024 Lab Reports [id number] .00TIFF Normal [facility] Lab Reports [id number] .00TIFF Normal [facility] Lab Reports [id number] .00TIFF Normal [facility] RAD - MISCon 01-22-2024 RAD - MISC [id number] .00TIFF Normal [facility] Surgical Pathology Reporton 06-18-2023 Surgical Pathology Report (NOTE) Path Number: [id number] -- Diagnosis -- ENDOMETRIAL CURETTINGS: -BENIGN ENDOMETRIAL [...] Microscopic Description Microscopic examination performed. Processing Lab: [facility] [address] [place] [address] Interpretation Performed at [facility] [address] [place], [place] SURGICAL PATHOLOGY CONSULTATION Patient Name: JOSE ALBERTO SALEEM [facility] Rec: [id number] [facility] ANATOMIC PATHOLOGY [address] [facility] [place], [place] [address] Normal [facility] US NON OB TRANSVAGINALon US NON OB [...] Gaby Tello DO 06/05/23 Final result Normal [facility] CHAY Antinuclear Antibodieson 12-12-2022 Antinuclear Abs, IFA Negative Normal . [facility] Comment on above: Order Comment: Reaso n for Exam Elevated liver function tests Result Comment: Nega tive <1:80 Borderline 1:80 Positive >1:80 ICAP nomenclature: AC-0 For more information about Hep-2 cell patterns use ANApatterns.org, the official website for the International Consensus on Antinuclear Antibody (CHAY) Patterns (ICAP). Performed at: - [facility] [address] [id number] [employer] Offbearer: Afshin Martinez PhD, Phone: [phone] Performed By: #### H AABT, SMAB, HCV RX PCR, HBSAG, CERULOP, HBCAB, ALPHA PHEN, IGG, MITOM2, HBSAB, CHAY, L-K MICRO #### [facility] , #### ABDIRASHID #### [facility] [address] [id number] Phenotyp anthony 12-12-2022 Alpha 1 Anti-Trypsin 172 mg/dL Normal 101-187 [facility] Comment on above: Order Comment: Reaso n for Exam Elevated liver function tests Performed By: #### H AABT, SMAB, HCV RX PCR, HBSAG, CERULOP, HBCAB, ALPHA PHEN, IGG, MITOM2, HBSAB, CHAY, L-K MICRO #### [facility] , #### ABDIRASHID #### [facility] [address] Phenotype (P1) MM Normal . [facility] Comment on above: Order Comment: Reaso [...] Ranges used to confirm phenotype. Performed at: - [address] [id number] [employer] Offbearer: Afshin Martinez PhD, Phone: [phone] Performed at: [facility] [address] [id number] [employer] Offbearer: Toni Guidry MD, Phone: [phone] Performed By: #### H AABT, SMAB, HCV RX PCR, HBSAG, CERULOP, HBCAB, ALPHA PHEN, IGG, MITOM2, HBSAB, CHAY, L-K MICRO #### [facility] , #### ABDIRASHID #### [facility] [address] [place] [id number] [facility] Ceruloplasminon 12-12-2022 Ceruloplasmin 30.6 mg/dL Normal 19.0-39.0 [facility] Comment on above: Order Comment: Reaso n for Exam Elevated liver function tests Performed By: #### H AABT, SMAB, HCV RX PCR, HBSAG, CERULOP, HBCAB, ALPHA PHEN, IGG, MITOM2, HBSAB, CHAY, L-K MICRO #### [facility] , #### ABDIRASHID #### [address] Ceruloplasmin 30.6 mg/dL 19.0-39.0 mg/dL [employer] Other Ferritinon 12-12-2022 Ferritin [Mass/Vol] 43.8 ng/mL Normal 11.0-306.8 [facility] Comment on above: Order Comment: Reaso n for Exam Elevated liver function tests Result Comment: PERF ORMED BY: [place] [address] PATHOLOGIST EDI PROGRAMMER ANALYST JULISSA GA M.D. Performed By: #### H AABT, SMAB, HCV RX PCR, HBSAG, CERULOP, HBCAB, ALPHA PHEN, IGG, MITOM2, HBSAB, CHAY, L-K MICRO #### [facility] , #### ABDIRASHID #### [facility] [address] [place] [address] Ferritin [Mass/Vol] 43.0299118 ng/mL Normal 11.0 -306.8 ng/mL [employer] Other Hep C Ab wRfx to Qnt PCRon 0 12-12-2022 Hepatitis C Virus Antibody Non-Reactive Normal Non Reactive [facility] Comment on above: Order Comment: Reaso n for Exam Elevated liver function tests Performed By: #### H AABT, SMAB, HCV RX PCR, HBSAG, CERULOP, HBCAB, ALPHA PHEN, IGG, MITOM2, HBSAB, CHAY, L-K MICRO #### [facility] , #### ABDIRASHID #### [facility] [address] Interpretation Hepatitis C Normal . [facility] Comment on above: Order Comment: Reaso [...] MICRO #### [facility] , #### ABDIRASHID #### [address] Hepatitis A Antibody Totalon 12-12-2022 Hepatitis A Antibody Total Negative Normal Negative [facility] Comment on above: Order Comment: Reaso n for Exam Elevated liver function tests Result Comment: Perf ormed at: - [address] [id number] [employer] Offbearer: Afshin Martinez PhD, Phone: [phone] Performed By: #### H AABT, SMAB, HCV RX PCR, HBSAG, CERULOP, HBCAB, ALPHA PHEN, IGG, MITOM2, HBSAB, CHAY, L-K MICRO #### [facility] , #### ABDIRASHID #### [address] Hepatitis A Antibody Total Negative . [employer] Other Hepatitis B Core Antibodyon 12-12-2022 Hepatitis B Core Antibody Negative Normal Negative [facility] Comment on above: Order Comment: Reaso n for Exam Elevated liver function tests Performed By: #### H AABT, SMAB, HCV RX PCR, HBSAG, CERULOP, HBCAB, ALPHA PHEN, IGG, MITOM2, HBSAB, CHAY, L-K MICRO #### [facility] , #### ABDIRASHID #### [facility] [address] [place] [address] [place] Hepatitis B Surface Antibody on 12-12-2022 Hepatitis B Surface Antibody Non-Reactive Normal . [facility] Comment on above: Order Comment: Reaso n for Exam Elevated liver function tests Result Comment: Non Reactive: Inconsistent with immunity, less than 10 mIU/mL Reactive: Consistent with immunity, greater than 9.9 mIU/mL Performed By: #### H AABT, SMAB, HCV RX PCR, HBSAG, CERULOP, HBCAB, ALPHA PHEN, IGG, MITOM2, HBSAB, CHAY, L-K MICRO #### [facility] , #### ABDIRASHID #### [address] Hepatitis B Surface Antibody Non-Reactive Non Reactive [employer] Other Hepatitis B Surface Antigeno n 12-12-2022 HBsAg Screen Negative Normal Negative [facility] Comment on above: Order Comment: Reaso n for Exam Elevated liver function tests Result Comment: PERF ORMED BY: [place] [address] PATHOLOGIST EDI PROGRAMMER ANALYST JULISSA GA M.D. Performed By: #### H AABT, SMAB, HCV RX PCR, HBSAG, CERULOP, HBCAB, ALPHA PHEN, IGG, MITOM2, HBSAB, CHAY, L-K MICRO #### [facility] , #### ABDIRASHID #### [address] Immunoglobulin Javi 3 Immunoglobulin G 823 mg/dL Normal 586-1602 [facility] Comment on above: Order Comment: Reaso n for Exam Elevated liver function tests Result Comment: Perf ormed at: - [facility] [address] [id number] [employer] Offbearer: Afshin Martinez PhD, Phone: [phone] Performed By: #### H AABT, SMAB, HCV RX PCR, HBSAG, CERULOP, HBCAB, ALPHA PHEN, IGG, MITOM2, HBSAB, CHAY, L-K MICRO #### [facility] , #### ABDIRASHID #### [facility] [address] [place] [address] Immunoglobulin G 823 mg/dL 586-1602 mg/dL [employer] Other Liver-Kidney Microsomal Abon 12-12-2022 Liver-Kidney Microsomal Ab 1.1 Normal 0.0-20.0 [facility] Comment on above: Order Comment: Reaso n for Exam Elevated liver function tests Result Comment: Nega tive 0.0 - 20.0 Equivocal 20.1 - 24.9 Positive >24.9 LKM type 1 antibodies are detected in patients with autoimmune hepatitis type 2 and in up to 8% of patients with chronic HCV infection. Performed at: [address] [id number] [employer] Offbearer: Afshin Martinez PhD, Phone: [phone] PERFORMED BY: [place] [address] PATHOLOGIST EDI PROGRAMMER ANALYST JULISSA GA M.D. Performed By: #### H AABT, SMAB, HCV RX PCR, HBSAG, CERULOP, HBCAB, ALPHA PHEN, IGG, MITOM2, HBSAB, CHAY, L-K MICRO #### [facility] , #### ABDIRASHID #### [address] Liver-Kidney Microsomal Ab 1.1 0.0-20.[address] [employer] [facility] [employer] Other Mitochondrial (M2) Antibodyo n 12-12-2022 Mitochondrial (M2) Antibody <20.0 Normal 0.0-20.0 [facility] Comment on above: Order Comment: Reaso n for Exam Elevated liver function tests Result Comment: Nega tive 0.0 - 20.0 Equivocal 20.1 - 24.9 Positive >24.9 Mitochondrial (M2) Antibodies are found in 90-96% of patients with primary biliary cirrhosis. Performed at: [address] [id number] [employer] Banding Machine Offbearer: Afshin Martinez PhD, Phone: [phone] Performed By: #### H AABT, SMAB, HCV RX PCR, HBSAG, CERULOP, HBCAB, ALPHA PHEN, IGG, MITOM2, HBSAB, CHAY, L-K MICRO #### [facility] , #### ABDIRASHID #### [facility] [address] [place] [address] Mitochondrial (M2) Antibody <20.0 0.0-20.[address] [employer] [facility] [employer] Other Smooth Muscle Antibodyon Smooth Muscle Antibody 5 Normal 0-19 [facility] Comment on above: Order Comment: Reaso [...] MICRO #### [facility] , #### ABDIRASHID #### [place] [address] [place] Smooth Muscle Antibody 5 0-[address] [employer] [facility] [employer] Other MR MRCPon 11-10-2022 MR MRCP [facility] [place] [address] MRI Report Signed Patient: Jose Alberto Saleem MR#: [id number] : 1965 Acct:[id number] Age/Sex: 57 / F ADM Date: 11/10/22 Loc: Room: Type: [facility] Attending Dr: Evert Bruno MD Copies [...] There is no dilated bowel within the xuwip-di-muvv. MR/MR MRCP IMPRESSION: SLIGHTLY PROMINENT COMMON DUCT, WITHOUT CHOLEDOCHOLITHIASIS. THIS MAY RELATE TO PREVIOUS CHOLECYSTECTOMY. RIGHT RENAL CYSTS. NO OTHER SIGNIFICANT MRI FINDINGS. Impression dictated by: Thelma Wick M.D.11/10/2022 7:00 PM Dictation Location: [place] [address] Transcribed By: [facility] 11/10/221899 Dictated By: Thelma Wick MD 11/10/221849 Signed By: 11/10/221899 [facility] MR MRCP [facility] [employer] Other MR MRCP [facility] [employer] Other MR MRCP [address] [place] [address] [employer] Other MR MRCP [address] [employer] Other MR MRCP MRI Report [facility] [employer] Other MR MRCP Signed [place] [email or web address] Other MR MRCP Patient: Jose Alberto Saleem MR#: [id number] [place] [email or web address] Other MR MRCP 571 [employer] Other MR MRCP : 1965 Acct:[id number] [employer] Other MR MRCP Age/Sex: 57 / F ADM Date: 11/10/22 [employer] Other MR MRCP Loc: MR Room: Type: [facility] [employer] Other MR MRCP Attending Dr: Evert Bruno MD [employer] Other MR MRCP Copies to: Evert Bruno MD [employer] Other MR MRCP Ordering Provider: Evert Bruno MD [employer] Other MR MRCP Date of Service: 11/10/22 [employer] Other MR MRCP MR/MR MRCP: Abdominal pain;Common bile duct dilatation;Elevated liver en [employer] Other MR MRCP MRCP [employer] Other MR MRCP CLINICAL DATA: Elevated lipase. Abnormal outside abdominal CT [employer] Other MR MRCP COMPARISON: CT abdomen 10/16/2022 [employer] Other MR MRCP Multiecho imaging of the abdomen was performed along with radial imaging of the biliary tree. [employer] Other MR MRCP The gallbladder surgically absent. There is no significant intrahepatic biliary dilatation. The [employer] Other MR MRCP common duct is slightly prominent measuring up to 6 mm. It tapers toward the ampulla. No in [employer] Other MR MRCP traluminal filling defects are identified to suggest choledocholithiasis. The pancreatic duct is [employer] Other MR MRCP also borderline prominent measuring 2 - 3 mm. No intrahepatic masses are identified. No pancreatic [employer] Other MR MRCP abnormalities are noted. The spleen and adrenal glands are within normal limits. There is no [employer] Other MR MRCP hydronephrosis. Ther e are right renal cysts. There is no aortic aneurysm. No adenopathy or [employer] Other MR MRCP ascites is seen. There is no dilated bowel within the dyeka-la-flqs. [employer] Other MR MRCP MR/MR MRCP [employer] Other MR MRCP IMPRESSION: [employer] Other MR MRCP SLIGHTLY PROMINENT COMMON DUCT, WITHOUT CHOLEDOCHOLITHIASIS. THIS MAY RELATE TO PREVIOUS [employer] Other MR MRCP CHOLECYSTECTOMY. [facility] [employer] Other MR MRCP RIGHT RENAL CYSTS. [employer] Other MR MRCP NO OTHER SIGNIFICANT MRI FINDINGS. [employer] Other MR MRCP Impression dictated by: Thelma Wick M.D.11/10/2022 7:00 PM [employer] Other MR MRCP Dictation Location: [place] [address] [employer] Other MR MRCP Transcribed By: [facility] 11/10/221899 [employer] Other MR MRCP Dictated By: Thelma Wick MD 11/10/221849 [employer] Other MR MRCP Signed By: [employer] Other MR MRCP 11/10/221899 [employer] Other Albumin [Mass/volume] in Ser um or PlasmaOrdered By: Imsara Bruno on 11-01-2022 Albumin [Mass/Vol] 4.0 g/dL 3.2-5.5 [facility] Direct bilirubin measurement Ordered By: Imad Asasara on 11-01-2022 Bilirubin.direct [Mass/Vol] 0.1 mg/dL 0.0-0.4 [facility] Globulin Calc (S) [Mass/Vol] Ordered By: Imad Asaad on 11-01-2022 Globulin (S) [Mass/Vol] 2.5 g/dL [facility] Hepatic Panelon 11-01-2022 Albumin [Mass/Vol] 4.662117 g/dL Normal 3.2-5.5 g/dL [facility] [email or web address] Other Bilirubin [Mass/Vol] 0.1186700 mg/dL Normal 0.3-1.2 mg /dL [email or web address] [email or web address] Other Bilirubin.indirect [Mass/Vol] 0.7396289 mg/dL Normal 0.0-0.4 mg/dL [email or web address] [email or web address] Other Protein [Mass/Vol] 6.703428 g/dL Normal 6.1-7.9 g/dL N [facility] [email or web address] Other Hepatic Panel 0.5 mg/dL [facility] [employer] Other Hepatic Panel 2.5 g/dL [email or web address] [email or web address] Other Albumin [Mass/Vol] 4.0 g/dL Normal 3.2-5.5 [facility] Comment on above: Order Comment: Reaso n for Exam Elevated liver enzymes Performed By: #### H EPATIC #### [facility] [address] Albumin/Globulin [Mass ratio] 1.6 {ratio} Normal [facility] Comment on above: Order Comment: Reaso n for Exam Elevated liver enzymes Performed By: #### H EPATIC #### [facility] [address] [place] [address] [place] ALP [Catalytic activity/Vol] 93 U/L High 32-92 [facility] Comment on above: Order Comment: Reaso n for Exam Elevated liver enzymes Result Comment: PERF ORMED BY: [facility] [address] [place] [id number] PATHOLOGIST EDI PROGRAMMER ANALYST JULISSA GA M.D. Performed By: #### H EPATIC #### [facility] [address] [place] [address] [place] ALT [Catalytic activity/Vol] 94 U/L High 10-60 [facility] [employer] Other Comment on above: Order Comment: Reaso n for Exam Elevated liver enzymes Performed By: #### H EPATIC #### [place] [id number] [place] AST [Catalytic activity/Vol] 66 U/L High 10-42 [facility] Comment on above: Order Comment: Reaso n for Exam Elevated liver enzymes Performed By: #### H EPATIC #### [place] [id number] [place] Bilirubin [Mass/Vol] 0.6 mg/dL Normal 0.3-1.2 [facility] Comment on above: Order Comment: Reaso n for Exam Elevated liver enzymes Performed By: #### H EPATIC #### [place] [address] [place] Bilirubin,Indirect 0.5 mg/dL Normal [facility] Comment on above: Order Comment: Reaso n for Exam Elevated liver enzymes Performed By: #### H EPATIC #### [place] [address] [place] Bilirubin.indirect [Mass/Vol] 0.1 mg/dL Normal 0.0-0.4 [facility] Comment on above: Order Comment: Reaso n for Exam Elevated liver enzymes Performed By: #### H EPATIC #### [place] [id number] [place] Globulin (S) [Mass/Vol] 2.5 g/dL Normal [facility] Comment on above: Order Comment: Reaso n for Exam Elevated liver enzymes Performed By: #### H EPATIC #### [place] [id number] [place] Protein [Mass/Vol] 6.5 g/dL Normal 6.1-7.9 [facility] Comment on above: Order Comment: Reaso n for Exam Elevated liver enzymes Performed By: #### H EPATIC #### [place] [id number] [place] Protein [Mass/volume] in Ser um or PlasmaOrdered By: Evert Bruno on 11-01-2022 Protein [Mass/Vol] 6.5 g/dL 6.1-7.9 [facility] Serum or plasma alanine li otransferase measurement without P-5'-P (enzymatic activiOrdered By: [facility] on 11-01-2022 ALT No additional P-5'-P [Catalytic activity/Vol] 94 U/L 10-60 [facility] Serum or plasma albumin/glob ulin mass ratioOrdered By: [facility] on 11-01-2022 Albumin/Globulin [Mass ratio] 1.6 {ratio} [facility] Serum or plasma alkaline monster sphatase measurement (enzymatic activity/volume)Ordered By: [facility] on 11-01-2022 ALP [Catalytic activity/Vol] 93 U/L 32-92 [facility] Serum or plasma aspartate am inotransferase measurement (enzymatic activity/volume)Ordered By: [facility] on 11-01-2022 AST [Catalytic activity/Vol] 66 U/L 10-42 [facility] Serum or plasma non-glucuron idated bilirubin measurement (mass/volume)Ordered By: [facility] on 11-01-2022 Bilirubin.indirect [Mass/Vol] 0.5 mg/dL [facility] Serum or plasma total biliru bin measurement (mass/volume)Ordered By: [facility] on 11-01-2022 Bilirubin [Mass/Vol] 0.6 mg/dL 0.3-1.2 [facility] CT ABDOMEN WO/W CONon 2022 CT [...] JAE WILSON Date: 2022-10-17 08:23 Normal [facility] AMMONIAon 10-09-2022 Ammonia (P) [Moles/Vol] 10 umol/L Critically low 11-32 [facility] Comment on above: Performed By: #### A MY #### [facility] [address] [place] [address] Dr. Ayden Cam AMYLASEon 10-09-2022 Amylase [Catalytic activity/Vol] 144 U/L Critically high 25-115 [facility] Comment on above: Performed By: #### L IPA #### [facility] [address] [place] [address] Dr. Ayden Cam CBC AUTO DIFFon 10-09-2022 BASO # 0.0 103/ul Normal 0.0-0.1 [facility] Comment on above: Performed By: #### C BC #### [facility] [address] [place] [address] Dr. Ayden Cam Basophils/100 WBC (Bld) 0.2 % Normal 0.2-2.0 [facility] Comment on above: Performed By: #### C BC #### [facility] [address] [place] [address] Dr. Ayden Cam EO # 0.2 103/ul Normal 0.0-0.7 [facility] Comment on above: Performed By: #### C BC #### [facility] [address] [place] [address] Dr. Ayden Cam Eosinophils/100 WBC (Bld) 3.3 % Normal 0.9-7.0 [facility] Comment on above: Performed By: #### C BC #### [facility] [address] [place] [address] Dr. Ayden Cam Erythrocyte distribution width (RBC) [Ratio] 12.1 % Normal 11.0-15.0 [facility] Comment on above: Performed By: #### C BC #### [facility] [address] [place] [address] Dr. Ayden Cam Hematocrit (Bld) [Volume fraction] 40.0 % Normal 36.0-48.0 [facility] Comment on above: Performed By: #### C BC #### [facility] [address] [place] [address] Dr. Ayden Cam Hemoglobin (Bld) [Mass/Vol] 14.2 g/dL Normal 12.0-16.0 [facility] Comment on above: Performed By: #### C BC #### [facility] [address] [place] [address] Dr. Ayden Cam IG # 0.01 10e3/ul Normal 0.00-0.03 [facility] Comment on above: Performed By: #### C BC #### [facility] [address] [place] [address] Dr. Ayden Cam IG % 0.2 % Normal 0.0-0.5 [facility] Comment on above: Performed By: #### C BC #### [facility] [address] [place] [address] Dr. Ayden Cam LYMPH # 1.5 103/ul Normal 1.2-3.8 [facility] Comment on above: Performed By: #### C BC #### [facility] [address] [place] [address] Dr. Ayden Cam Lymphocytes/100 WBC (Bld) 24.2 % Normal 20.5-60.0 [facility] Comment on above: Performed By: #### C BC #### [facility] [address] [place] [address] Dr. Ayden Cam MANUAL DIFF REQ NO Normal [facility] Comment on above: Performed By: #### C BC #### [facility] [address] [place] [address] Dr. Ayden Cam MCH (RBC) [Entitic mass] 30.0 pg Normal 26.7-34.0 [facility] Comment on above: Performed By: #### C BC #### [facility] [address] [place] [address] Dr. Ayden Cam MCHC (RBC) [Mass/Vol] 35.5 g/dL Critically high 29.9-35.2 [facility] Comment on above: Performed By: #### C BC #### [facility] [address] [place] [address] Dr. Ayden Cam MCV (RBC) [Entitic vol] 84.4 fL Normal 81.0-99.0 [facility] Comment on above: Performed By: #### C BC #### [facility] [address] [place] [address] Dr. Ayden Cam MONO # 0.6 103/ul Normal 0.3-0.8 [facility] Comment on above: Performed By: #### C BC #### [facility] [address] [place] [address] Dr. Ayden Cam Monocytes/100 WBC (Bld) 10.3 % Normal 1.7-12.0 [facility] Comment on above: Performed By: #### C BC #### [facility] [address] [place] [address] Dr. Ayden Cam NEUT # 3.7 103/ul Normal 1.4-6.5 [facility] Comment on above: Performed By: #### C BC #### [facility] [address] [place] [address] Dr. Ayden Cam Neutrophils/100 WBC (Bld) 61.8 % Normal 43.0-75.0 [facility] Comment on above: Performed By: #### C BC #### [facility] [address] [place] [address] Dr. Ayden Cam Platelet mean volume (Bld) [Entitic vol] 9.0 fL Critically low 9.5-13.5 [facility] Comment on above: Performed By: #### C BC #### [facility] [address] [place] [address] Dr. Ayden Cam PLT 191 103/ul Normal 150-450 [facility] Comment on above: Performed By: #### C BC #### [facility] [address] [place] [address] Dr. Ayden Cam RBC 4.74 106/ul Normal 4.20-5.40 [facility] Comment on above: Performed By: #### C BC #### [facility] [address] [place] [address] Dr. Ayden Cam WBC 6.0 103/ul Normal 4.0-11.0 [facility] Comment on above: Performed By: #### C BC #### [facility] [address] [place] [address] Dr. Ayden Cam LIPASEon 10-09-2022 Lipase [Catalytic activity/Vol] 168.0 U/L Normal 73.0-393.0 [facility] Comment on above: Performed By: #### L ACT #### [facility] [address] [place] [address] Dr. Ayden Cam PROF 14(COMP METB)on 023 Albumin [Mass/Vol] 3.6 g/dL Normal 3.4-5.0 [facility] Comment on above: Performed By: #### L IPA #### [facility] [address] [place] [address] Dr. Ayden Cam Albumin/Globulin [Mass ratio] 1.1 {ratio} Normal [facility] Comment on above: Performed By: #### L IPA #### [facility] [address] [place] [address] Dr. Ayden Cam ALP [Catalytic activity/Vol] 93 U/L Normal 46-116 [facility] Comment on above: Performed By: #### L IPA #### [facility] [address] [place] [address] Dr. Ayden Cam ALT [Catalytic activity/Vol] 52 U/L Normal 14-59 [facility] Comment on above: Performed By: #### L IPA #### [facility] [address] [place] [address] Dr. Ayden Cam Anion gap [Moles/Vol] 10.2 mmol/L Normal [facility] Comment on above: Performed By: #### L IPA #### [facility] [address] [place] [address] [address] Ayden Cam AST [Catalytic activity/Vol] 33 U/L Normal 15-37 [facility] Comment on above: Performed By: #### L IPA #### [facility] [address] [place] [address] [address] Ayden Cam Bilirubin [Mass/Vol] 0.3 mg/dL Normal 0.2-1.0 [facility] Comment on above: Performed By: #### L IPA #### [facility] [address] [place] [address] [address] Ayden Cam Calcium [Mass/Vol] 9.4 mg/dL Normal 8.5-10.1 [facility] Comment on above: Performed By: #### L IPA #### [facility] [address] [place] [address] [address] Ayden Cam Chloride [Moles/Vol] 99 mmol/L Normal 98-107 [facility] Comment on above: Performed By: #### L IPA #### [facility] [address] [place] [address] [address] Ayden Cam CO2 [Moles/Vol] 33.7 mmol/L Critically high 21.0-32.0 [facility] Comment on above: Performed By: #### L IPA #### [facility] [address] [place] [address] [address] Ayden Cam Creatinine [Mass/Vol] 0.62 mg/dL Normal 0.55-1.02 [facility] Comment on above: Performed By: #### L IPA #### [facility] [address] [place] [address] [address] Ayden Cam EGFR-AF [place] >60 Normal >=60 [facility] Comment on above: Performed By: #### L IPA #### [facility] [address] [place] [address] [address] Ayden Cam EGFR-NON AF [place] >60 Normal >=60 [facility] Comment on above: Performed By: #### L IPA #### [facility] [address] [place] [address] [address] Ayden Cam Globulin (S) [Mass/Vol] 3.4 g/dL Normal [facility] Comment on above: Performed By: #### L IPA #### [facility] [address] [place] [address] [address] Ayden Cam Glucose [Mass/Vol] 105 mg/dL Normal 74-106 [facility] Comment on above: Performed By: #### L IPA #### [facility] [address] [place] [address] [address] Ayden Cam Potassium [Moles/Vol] 3.9 mmol/L Normal 3.5-5.1 [facility] Comment on above: Performed By: #### L IPA #### [facility] [address] [place] [address] [address] Ayden Cam Protein [Mass/Vol] 7.0 g/dL Normal 6.4-8.2 [facility] Comment on above: Performed By: #### L IPA #### [facility] [address] [place] [address] [address] Ayden Cam Sodium [Moles/Vol] 139 mmol/L Normal 136-145 [facility] Comment on above: Performed By: #### L IPA #### [facility] [address] [place] [address] [address] Ayden Cam Urea nitrogen [Mass/Vol] 28.0 mg/dL Critically high 7.0-18.0 [facility] Comment on above: Performed By: #### L IPA #### [facility] [address] [place] [address] [address] Ayden Cam Urea nitrogen/Creatinine [Mass ratio] 45.2 mg/mg Normal [facility] Comment on above: Performed By: #### L IPA #### [facility] [address] [place] [address] [address] Ayden Cam AMMONIAon 10-06-2022 Ammonia (P) [Moles/Vol] 16 umol/L Normal 11-32 [facility] Comment on above: Performed By: #### A MM #### [facility] [address] [place] [address] Dr. Ayden Cam AMYLASEon 10-06-2022 Amylase [Catalytic activity/Vol] 189 U/L Critically high 25-115 [facility] Comment on above: Performed By: #### L IPA #### [facility] [address] [place] [address] Dr. Ayden Cam CBC AUTO DIFFon 10-06-2022 BASO # 0.0 103/ul Normal 0.0-0.1 [facility] Comment on above: Performed By: #### C BC #### [facility] [address] [place] [address] Dr. Ayden Cam Basophils/100 WBC (Bld) 0.2 % Normal 0.2-2.0 [facility] Comment on above: Performed By: #### C BC #### [facility] [address] [place] [address] Dr. Ayden Cam EO # 0.3 103/ul Normal 0.0-0.7 [facility] Comment on above: Performed By: #### C BC #### [facility] [address] [place] [address] Dr. Ayden Cam Eosinophils/100 WBC (Bld) 5.2 % Normal 0.9-7.0 [facility] Comment on above: Performed By: #### C BC #### [facility] [address] [place] [address] Dr. Ayden Cam Erythrocyte distribution width (RBC) [Ratio] 12.3 % Normal 11.0-15.0 [facility] Comment on above: Performed By: #### C BC #### [facility] [address] [place] [address] Dr. Ayden Cam Hematocrit (Bld) [Volume fraction] 36.9 % Normal 36.0-48.0 [facility] Comment on above: Performed By: #### C BC #### [facility] [address] [place] [address] Dr. Ayden Cam Hemoglobin (Bld) [Mass/Vol] 12.4 g/dL Normal 12.0-16.0 [facility] Comment on above: Performed By: #### C BC #### [facility] [address] [place] [address] Dr. Ayden Cam IG # 0.01 10e3/ul Normal 0.00-0.03 [facility] Comment on above: Performed By: #### C BC #### [facility] [address] [place] [address] Dr. Ayden Cam IG % 0.2 % Normal 0.0-0.5 [facility] Comment on above: Performed By: #### C BC #### [facility] [address] [place] [address] Dr. Ayden Cam LYMPH # 1.8 103/ul Normal 1.2-3.8 [facility] Comment on above: Performed By: #### C BC #### [facility] [address] [place] [address] Dr. Ayden Cam Lymphocytes/100 WBC (Bld) 31.3 % Normal 20.5-60.0 [facility] Comment on above: Performed By: #### C BC #### [facility] [address] [place] [address] Dr. Ayden Cam MANUAL DIFF REQ NO Normal [facility] Comment on above: Performed By: #### C BC #### [facility] [address] [place] [address] Dr. Ayden Cam MCH (RBC) [Entitic mass] 30.0 pg Normal 26.7-34.0 [facility] Comment on above: Performed By: #### C BC #### [facility] [address] [place] [address] Dr. Ayden Cam MCHC (RBC) [Mass/Vol] 33.6 g/dL Normal 29.9-35.2 [facility] Comment on above: Performed By: #### C BC #### [facility] [address] [place] [address] Dr. Ayden Cam MCV (RBC) [Entitic vol] 89.1 fL Normal 81.0-99.0 [facility] Comment on above: Performed By: #### C BC #### [facility] [address] [place] [address] [address] Ayden Cam MONO # 0.6 103/ul Normal 0.3-0.8 [facility] Comment on above: Performed By: #### C BC #### [facility] [address] [place] [address] [address] Ayden Cam Monocytes/100 WBC (Bld) 10.1 % Normal 1.7-12.0 [facility] Comment on above: Performed By: #### C BC #### [facility] [address] [place] [address] Dr. Ayden Cam NEUT # 3.1 103/ul Normal 1.4-6.5 [facility] Comment on above: Performed By: #### C BC #### [facility] [address] [place] [address] Dr. Ayden Cam Neutrophils/100 WBC (Bld) 53.0 % Normal 43.0-75.0 [facility] Comment on above: Performed By: #### C BC #### [facility] [address] [place] [address] Dr. Ayden Cam Platelet mean volume (Bld) [Entitic vol] 9.4 fL Critically low 9.5-13.5 [facility] Comment on above: Performed By: #### C BC #### [facility] [address] [place] [address] Dr. Ayden Cam PLT 153 103/ul Normal 150-450 [facility] Comment on above: Performed By: #### C BC #### [facility] [address] [place] [address] Dr. Ayden Cam RBC 4.14 106/ul Critically low 4.20-5.40 The [facility] Comment on above: Performed By: #### C BC #### [facility] [address] [place] [address] Dr. Ayden Cam WBC 5.8 103/ul Normal 4.0-11.0 [facility] Comment on above: Performed By: #### C BC #### [facility] [address] [place] [address] Dr. Ayden Cam LIPASEon 10-06-2022 Lipase [Catalytic activity/Vol] 166.0 U/L Normal 73.0-393.0 [facility] Comment on above: Performed By: #### L IPA #### [facility] [address] [place] [address] Dr. Ayden Cam LIVER PROFILEon 10-06-2022 Albumin [Mass/Vol] 3.2 g/dL Critically low 3.4-5.0 Th [facility] Comment on above: Performed By: #### L IPA #### [facility] [address] [place] [address] Dr. Ayden Cam Albumin/Globulin [Mass ratio] 1.3 {ratio} Normal [facility] Comment on above: Performed By: #### L IPA #### [facility] [address] [place] [address] Dr. Ayden Cam ALP [Catalytic activity/Vol] 88 U/L Normal 46-116 [facility] Comment on above: Performed By: #### L IPA #### [facility] [address] [place] [address] Dr. Ayden Cam ALT [Catalytic activity/Vol] 66 U/L Critically high 14-59 [facility] Comment on above: Performed By: #### L IPA #### [facility] [address] [place] [address] Dr. Ayden Cam AST [Catalytic activity/Vol] 39 U/L Critically high 15-37 [facility] Comment on above: Performed By: #### L IPA #### [facility] [address] [place] [address] Dr. Ayden Cam BILI, CONJUGATED 0.1 mg/dL Normal 0.0-0.2 [facility] Comment on above: Performed By: #### L IPA #### [facility] [address] [place] [address] Dr. Ayden Cam Bilirubin [Mass/Vol] 0.4 mg/dL Normal 0.2-1.0 [facility] Comment on above: Performed By: #### L IPA #### [facility] [address] [place] [address] Dr. Ayden Cam Globulin (S) [Mass/Vol] 2.4 g/dL Normal [facility] Comment on above: Performed By: #### L IPA #### [facility] [address] [address] [address] Ayden Cam Protein [Mass/Vol] 5.6 g/dL Critically low 6.4-8.2 Th e [facility] Comment on above: Performed By: #### L IPA #### [facility] [address] [address] [address] Ayden Cam PROF CHEM 8 (BAS METB)on Anion gap [Moles/Vol] 6.8 mmol/L Normal [facility] Comment on above: Performed By: #### L IPA #### [facility] [address] [place] [address] Dr. Ayden Cam Calcium [Mass/Vol] 8.6 mg/dL Normal 8.5-10.1 [facility] Comment on above: Performed By: #### L IPA #### [facility] [address] [place] [address] Dr. Ayden Cam Chloride [Moles/Vol] 102 mmol/L Normal 98-107 [facility] Comment on above: Performed By: #### L IPA #### [facility] [address] [place] [address] Dr. Ayden Cam CO2 [Moles/Vol] 32.6 mmol/L Critically high 21.0-32.0 [facility] Comment on above: Performed By: #### L IPA #### [facility] [address] [place] [address] Dr. Ayden Cam Creatinine [Mass/Vol] 0.61 mg/dL Normal 0.55-1.02 [facility] Comment on above: Performed By: #### L IPA #### [facility] [address] [place] [address] Dr. Ayden Cam EGFR-AF [place] >60 Normal >=60 [facility] Comment on above: Performed By: #### L IPA #### [facility] [address] [place] [address] Dr. Ayden Cam EGFR-NON AF [place] >60 Normal >=60 [facility] Comment on above: Performed By: #### L IPA #### [facility] [address] [address] [address] Ayden Cam Glucose [Mass/Vol] 91 mg/dL Normal 74-106 [facility] Comment on above: Performed By: #### L IPA #### [facility] [address] [address] [address] Ayden Cam Potassium [Moles/Vol] 3.4 mmol/L Critically low 3.5-5.1 [facility] Comment on above: Performed By: #### L IPA #### [facility] [address] [address] [address] Ayden Cam Sodium [Moles/Vol] 138 mmol/L Normal 136-145 [facility] Comment on above: Performed By: #### L IPA #### [facility] [address] [address] [address] Ayden Cam Urea nitrogen [Mass/Vol] 13.0 mg/dL Normal 7.0-18.0 [facility] Comment on above: Performed By: #### L IPA #### [facility] [address] [address] [address] Ayden Cam Urea nitrogen/Creatinine [Mass ratio] 21.3 mg/mg Normal [facility] Comment on above: Performed By: #### L IPA #### [facility] [address] [address] [address] Ayden Cam AMMONIAon 10-05-2022 Ammonia (P) [Moles/Vol] 10 umol/L Critically low 11-32 [facility] Comment on above: Performed By: #### A MM #### [facility] [address] [place] [address] Dr. Ayden Cam AMYLASEon 10-05-2022 Amylase [Catalytic activity/Vol] 109 U/L Normal 25-115 [facility] Comment on above: Performed By: #### A MY #### [facility] [address] [address] [address] Ayden Cam CBC AUTO DIFFon 10-05-2022 BASO # 0.0 103/ul Normal 0.0-0.1 [facility] Comment on above: Performed By: #### L IPA #### [facility] [address] [address] [address] Ayden Cam Basophils/100 WBC (Bld) 0.3 % Normal 0.2-2.0 [facility] Comment on above: Performed By: #### L IPA #### [facility] [address] [place] [address] Dr. Ayden Cam EO # 0.3 103/ul Normal 0.0-0.7 [facility] Comment on above: Performed By: #### L IPA #### [facility] [address] [place] [address] Dr. Ayden Cam Eosinophils/100 WBC (Bld) 4.3 % Normal 0.9-7.0 [facility] Comment on above: Performed By: #### L IPA #### [facility] [address] [place] [address] Dr. Ayden Cam Erythrocyte distribution width (RBC) [Ratio] 12.2 % Normal 11.0-15.0 [facility] Comment on above: Performed By: #### L IPA #### [facility] [address] [place] [address] Dr. Ayden Cam Hematocrit (Bld) [Volume fraction] 38.9 % Normal 36.0-48.0 [facility] Comment on above: Performed By: #### L IPA #### [facility] [address] [place] [address] Dr. Ayden Cam Hemoglobin (Bld) [Mass/Vol] 12.8 g/dL Normal 12.0-16.0 [facility] Comment on above: Performed By: #### L IPA #### [facility] [address] [place] [address] Dr. Ayden Cam IG # 0.01 10e3/ul Normal 0.00-0.03 [facility] Comment on above: Performed By: #### L IPA #### [facility] [address] [place] [address] Dr. Ayden Cam IG % 0.2 % Normal 0.0-0.5 [facility] Comment on above: Performed By: #### L IPA #### [facility] [address] [place] [address] Dr. Ayden Cam LYMPH # 1.9 103/ul Normal 1.2-3.8 [facility] Comment on above: Performed By: #### L IPA #### [facility] [address] [place] [address] Dr. Ayden Cam Lymphocytes/100 WBC (Bld) 31.4 % Normal 20.5-60.0 [facility] Comment on above: Performed By: #### L IPA #### [facility] [address] [place] [address] Dr. Ayden Cam MANUAL DIFF REQ NO Normal [facility] Comment on above: Performed By: #### L IPA #### [facility] [address] [place] [address] Dr. Ayden Cam MCH (RBC) [Entitic mass] 29.6 pg Normal 26.7-34.0 [facility] Comment on above: Performed By: #### L IPA #### [facility] [address] [place] [address] Dr. Ayden Cam MCHC (RBC) [Mass/Vol] 32.9 g/dL Normal 29.9-35.2 [facility] Comment on above: Performed By: #### L IPA #### [facility] [address] [place] [address] Dr. Ayden Cam MCV (RBC) [Entitic vol] 89.8 fL Normal 81.0-99.0 [facility] Comment on above: Performed By: #### L IPA #### [facility] [address] [place] [address] Dr. Ayden Cam MONO # 0.6 103/ul Normal 0.3-0.8 [facility] Comment on above: Performed By: #### L IPA #### [facility] [address] [place] [address] Dr. Ayden Cam Monocytes/100 WBC (Bld) 10.1 % Normal 1.7-12.0 [facility] Comment on above: Performed By: #### L IPA #### [facility] [address] [place] [address] Dr. Ayden Cam NEUT # 3.2 103/ul Normal 1.4-6.5 [facility] Comment on above: Performed By: #### L IPA #### [facility] [address] [place] [address] Dr. Ayden Cam Neutrophils/100 WBC (Bld) 53.7 % Normal 43.0-75.0 [facility] Comment on above: Performed By: #### L IPA #### [facility] [address] [place] [address] Dr. Ayden Cam Platelet mean volume (Bld) [Entitic vol] 9.7 fL Normal 9.5-13.5 [facility] Comment on above: Performed By: #### L IPA #### [facility] [address] [place] [address] Dr. Ayden Cam PLT 168 103/ul Normal 150-450 [facility] Comment on above: Performed By: #### L IPA #### [facility] [address] [place] [address] Dr. Ayden Cam RBC 4.33 106/ul Normal 4.20-5.40 [facility] Comment on above: Performed By: #### L IPA #### [facility] [address] [place] [address] Dr. Ayden Cam WBC 6.0 103/ul Normal 4.0-11.0 [facility] Comment on above: Performed By: #### L IPA #### [facility] [address] [place] [address] Dr. Ayden Cam LIPASEon 10-05-2022 Lipase [Catalytic activity/Vol] 151.0 U/L Normal 73.0-393.0 [facility] Comment on above: Performed By: #### L IPA #### [facility] [address] [place] [address] Dr. Ayden Cam LIVER PROFILEon 10-05-2022 Albumin [Mass/Vol] 3.2 g/dL Critically low 3.4-5.0 Th [facility] Comment on above: Performed By: #### L ACT #### [facility] [address] [place] [address] Dr. Ayden Cam Albumin/Globulin [Mass ratio] 1.1 {ratio} Normal [facility] Comment on above: Performed By: #### L ACT #### [facility] [address] [place] [address] Dr. Ayden Cam ALP [Catalytic activity/Vol] 82 U/L Normal 46-116 [facility] Comment on above: Performed By: #### L ACT #### [facility] [address] [place] [address] Dr. Ayden Cam ALT [Catalytic activity/Vol] 70 U/L Critically high 14-59 [facility] Comment on above: Performed By: #### L ACT #### [facility] [address] [place] [address] Dr. Ayden Cam AST [Catalytic activity/Vol] 36 U/L Normal 15-37 [facility] Comment on above: Performed By: #### L ACT #### [facility] [address] [place] [address] Dr. Ayden Cam BILI, CONJUGATED 0.1 mg/dL Normal 0.0-0.2 [facility] Comment on above: Performed By: #### L ACT #### [facility] [address] [place] [address] Dr. Ayden Cam Bilirubin [Mass/Vol] 0.3 mg/dL Normal 0.2-1.0 [facility] Comment on above: Performed By: #### L ACT #### [facility] [address] [place] [address] Dr. Ayden Cam Globulin (S) [Mass/Vol] 3.0 g/dL Normal [facility] Comment on above: Performed By: #### L ACT #### [facility] [address] [place] [address] Dr. Ayden Cam Protein [Mass/Vol] 6.2 g/dL Critically low 6.4-8.2 Th [facility] Comment on above: Performed By: #### L ACT #### [facility] [address] [address] [address] Ayden Cam PROF CHEM 8 (BAS METB)on Anion gap [Moles/Vol] 9.5 mmol/L Normal [facility] Comment on above: Performed By: #### B MP #### [facility] [address] [place] [address] Dr. Ayden Cam Calcium [Mass/Vol] 8.9 mg/dL Normal 8.5-10.1 [facility] Comment on above: Performed By: #### B MP #### [facility] [address] [place] [address] Dr. Ayden Cam Chloride [Moles/Vol] 105 mmol/L Normal 98-107 [facility] Comment on above: Performed By: #### B MP #### [facility] [address] [place] [address] Dr. Ayden Cam CO2 [Moles/Vol] 29.6 mmol/L Normal 21.0-32.0 [facility] Comment on above: Performed By: #### B MP #### [facility] [address] [place] [address] Dr. Ayden Cam Creatinine [Mass/Vol] 0.56 mg/dL Normal 0.55-1.02 [facility] Comment on above: Performed By: #### B MP #### [facility] [address] [place] [address] Dr. Ayden Cam EGFR-AF [place] >60 Normal >=60 [facility] Comment on above: Performed By: #### B MP #### [facility] [address] [place] [address] Dr. Ayden Cam EGFR-NON AF [place] >60 Normal >=60 [facility] Comment on above: Performed By: #### B MP #### [facility] [address] [place] [address] Dr. Ayden Cam Glucose [Mass/Vol] 88 mg/dL Normal 74-106 [facility] Comment on above: Performed By: #### B MP #### [facility] [address] [place], [place] [address] Dr. Ayden Cam Potassium [Moles/Vol] 4.1 mmol/L Normal 3.5-5.1 [facility] Comment on above: Performed By: #### B MP #### [facility] [address] [place], [place] [address] Dr. Ayden Cam Sodium [Moles/Vol] 140 mmol/L Normal 136-145 [facility] Comment on above: Performed By: #### B MP #### [facility] [address] [place], [place] [address] Dr. Ayden Cam Urea nitrogen [Mass/Vol] 15.0 mg/dL Normal 7.0-18.0 [facility] Comment on above: Performed By: #### B MP #### [facility] [address] [place], [place] [address] Dr. Ayden Cam Urea nitrogen/Creatinine [Mass ratio] 26.8 mg/mg Normal [facility] Comment on above: Performed By: #### B MP #### [facility] [address] [place], [place] [address] Dr. Ayden Cam US Jhony 10-05-2022 US [...] RONAN TORIBIO Date: 2022-10-05 09:52 Normal [facility] XR KUB 1 VIEWon 10-05-2022 XR KUB [...] RONAN TORIBIO Date: 2022-10-05 09:55 Normal [facility] AMYLASEon 10-04-2022 Amylase [Catalytic activity/Vol] 124 U/L Critically high 25-115 [facility] Comment on above: Performed By: #### L IPA, COLE, CMP #### [facility] [address] [place] [address] Dr. Ayden Cam CBC AUTO DIFFon 10-04-2022 BASO # 0.0 103/ul Normal 0.0-0.1 [facility] Comment on above: Performed By: #### L IPA #### [facility] [address] [place] [address] Dr. Ayden Cam Basophils/100 WBC (Bld) 0.3 % Normal 0.2-2.0 [facility] Comment on above: Performed By: #### L IPA #### [facility] [address] [place] [address] Dr. Ayden Cam EO # 0.2 103/ul Normal 0.0-0.7 [facility] Comment on above: Performed By: #### L IPA #### [facility] [address] [place] [address] Dr. Ayden Cam Eosinophils/100 WBC (Bld) 2.9 % Normal 0.9-7.0 [facility] Comment on above: Performed By: #### L IPA #### [facility] [address] [place] [address] Dr. Ayden Cam Erythrocyte distribution width (RBC) [Ratio] 12.3 % Normal 11.0-15.0 [facility] Comment on above: Performed By: #### L IPA #### [facility] [address] [place] [address] Dr. Ayden Cam Hematocrit (Bld) [Volume fraction] 42.0 % Normal 36.0-48.0 [facility] Comment on above: Performed By: #### L IPA #### [facility] [address] [place] [address] Dr. Ayden Cam Hemoglobin (Bld) [Mass/Vol] 14.3 g/dL Normal 12.0-16.0 [facility] Comment on above: Performed By: #### L IPA #### [facility] [address] [place] [address] Dr. Ayden Cam IG # 0.02 10e3/ul Normal 0.00-0.03 [facility] Comment on above: Performed By: #### L IPA #### [facility] [address] [place] [address] Dr. Ayden Cam IG % 0.3 % Normal 0.0-0.5 [facility] Comment on above: Performed By: #### L IPA #### [facility] [address] [place] [address] Dr. Ayden Cam LYMPH # 1.7 103/ul Normal 1.2-3.8 [facility] Comment on above: Performed By: #### L IPA #### [facility] [address] [place] [address] Dr. Ayden Cam Lymphocytes/100 WBC (Bld) 22.5 % Normal 20.5-60.0 [facility] Comment on above: Performed By: #### L IPA #### [facility] [address] [place] [address] Dr. Ayden Cam MANUAL DIFF REQ NO Normal [facility] Comment on above: Performed By: #### L IPA #### [facility] [address] [place] [address] Dr. Ayden Cam MCH (RBC) [Entitic mass] 30.1 pg Normal 26.7-34.0 [facility] Comment on above: Performed By: #### L IPA #### [facility] [address] [address] [address] Ayden Cam MCHC (RBC) [Mass/Vol] 34.0 g/dL Normal 29.9-35.2 [facility] Comment on above: Performed By: #### L IPA #### [facility] [address] [address] [address] Ayden Cam MCV (RBC) [Entitic vol] 88.4 fL Normal 81.0-99.0 [facility] Comment on above: Performed By: #### L IPA #### [facility] [address] [place] [address] Dr. Ayden Cam MONO # 0.5 103/ul Normal 0.3-0.8 [facility] Comment on above: Performed By: #### L IPA #### [facility] [address] [place] [address] Dr. Ayden Cam Monocytes/100 WBC (Bld) 6.0 % Normal 1.7-12.0 [facility] Comment on above: Performed By: #### L IPA #### [facility] [address] [place] [address] Dr. Ayden Cam NEUT # 5.2 103/ul Normal 1.4-6.5 [facility] Comment on above: Performed By: #### L IPA #### [facility] [address] [place] [address] Dr. Ayden Cam Neutrophils/100 WBC (Bld) 68.0 % Normal 43.0-75.0 [facility] Comment on above: Performed By: #### L IPA #### [facility] [address] [address] [address] Ayden Cam Platelet mean volume (Bld) [Entitic vol] 9.6 fL Normal 9.5-13.5 [facility] Comment on above: Performed By: #### L IPA #### [facility] [address] [address] [address] Ayden Cam PLT 183 103/ul Normal 150-450 [facility] Comment on above: Performed By: #### L IPA #### [facility] [address] [place] [address] Dr. Ayden Cam RBC 4.75 106/ul Normal 4.20-5.40 [facility] Comment on above: Performed By: #### L IPA #### [facility] [address] [place] [address] Dr. Ayden Cam WBC 7.6 103/ul Normal 4.0-11.0 [facility] Comment on above: Performed By: #### L IPA #### [facility] [address] [place] [address] Dr. Ayden Cam [facility]on SARS-CoV-2 (COVID-19) RNA LOWELL+probe Ql (Unsp spec) Not detected Normal NOT DETECTED [facility] Comment on above: Result Comment: When diagnostic [...] for this test is supported by the [place] of Health and Human Service's declaration that [...] used). Performed By: #### L IPA #### [facility] [address] [place] [address] Dr. Ayden Cam ER URINE PROFILEon 3 Bilirubin Ql (U) Negative Normal NEGATIVE [facility] Comment on above: Performed By: #### L ACT #### [facility] [address] [place] [address] Dr. Ayden Cam Clarity (U) CLEAR Normal CLEAR [facility] Comment on above: Performed By: #### L ACT #### [facility] [address] [address] [address] Ayden Cam Color (U) LT. YELLOW Normal YELLOW [facility] Comment on above: Performed By: #### L ACT #### [facility] [address] [address] [address] Ayden Cam ERUAHD A micrscopic examination will be performed if indicated. Normal [facility] Comment on above: Performed By: #### L ACT #### [facility] [address] [address] [address] Ayden Cam Glucose Ql (U) Negative Normal NEGATIVE [facility] Comment on above: Performed By: #### L ACT #### [facility] [address] [address] [address] Ayden Cam Hemoglobin Ql (U) Negative Normal NEGATIVE [facility] Comment on above: Performed By: #### L ACT #### [facility] [address] [address] [address] Ayden Cam [place] Ql (U) Negative Normal NEGATIVE [facility] Comment on above: Performed By: #### L ACT #### [facility] [address] [address] [address] Ayden Cam LEUKOCYTES Negative Normal NEGATIVE [facility] Comment on above: Performed By: #### L ACT #### [facility] [address] [address] [address] Ayden Cam Nitrite Ql (U) Negative Normal NEGATIVE [facility] Comment on above: Performed By: #### L ACT #### [facility] [address] [address] [address] Ayden Cam pH (U) 8.5 [pH] Normal 5-9 [facility] Comment on above: Performed By: #### L ACT #### [facility] [address] [address] [address] Ayden Cam SPEC GRAVITY 1.015 Normal 1.005-<=1.025 The [facility] Comment on above: Performed By: #### L ACT #### [facility] [address] [place] [address] Dr. Ayden Cam UA PROTEIN Negative Normal NEGATIVE/ TRACE [facility] Comment on above: Performed By: #### L ACT #### [facility] [address] [place] [address] Dr. Ayden Cam UR MICRO IND NOT INDICATED Normal The [facility] Comment on above: Performed By: #### L ACT #### [facility] [address] [place] [address] Dr. Ayden Cam Urobilinogen Qn (U) 0.2 {Peggy'U}/dL Normal 0.2 - 1. 0 [facility] Comment on above: Performed By: #### L ACT #### [facility] [address] [place] [address] Dr. Ayden Cam LACTATE/LACTIC ACIDon 2022 Lactate [Moles/Vol] 0.8 mmol/L Normal 0.4-1.9 [facility] Comment on above: Performed By: #### L ACT #### [facility] [address] [place] [address] Dr. Ayden Cam LIPASEon 10-04-2022 Lipase [Catalytic activity/Vol] 170.0 U/L Normal 73.0-393.0 [facility] Comment on above: Performed By: #### L ACT #### [facility] [address] [place] [address] Dr. Ayden Cam PROF 14(COMP METB)on 023 Albumin [Mass/Vol] 3.8 g/dL Normal 3.4-5.0 [facility] Comment on above: Performed By: #### L ACT #### [facility] [address] [place] [address] Dr. Ayden Cam Albumin/Globulin [Mass ratio] 1.1 {ratio} Normal [facility] Comment on above: Performed By: #### L ACT #### [facility] [address] [place] [address] Dr. Ayden Cam ALP [Catalytic activity/Vol] 101 U/L Normal 46-116 [facility] Comment on above: Performed By: #### L ACT #### [facility] [address] [address] [address] Ayden Cam ALT [Catalytic activity/Vol] 94 U/L Critically high 14-59 [facility] Comment on above: Performed By: #### L ACT #### [facility] [address] [address] [address] Ayden Cam Anion gap [Moles/Vol] 11.1 mmol/L Normal [facility] Comment on above: Performed By: #### L ACT #### [facility] [address] [address] [address] Ayden Cam AST [Catalytic activity/Vol] 59 U/L Critically high 15-37 [facility] Comment on above: Performed By: #### L ACT #### [facility] [address] [address] [address] Ayden Cam Bilirubin [Mass/Vol] 0.3 mg/dL Normal 0.2-1.0 [facility] Comment on above: Performed By: #### L ACT #### [facility] [address] [address] [address] Ayden Cam Calcium [Mass/Vol] 9.5 mg/dL Normal 8.5-10.1 [facility] Comment on above: Performed By: #### L ACT #### [facility] [address] [address] [address] Ayden Cam Chloride [Moles/Vol] 99 mmol/L Normal 98-107 [facility] Comment on above: Performed By: #### L ACT #### [facility] [address] [address] [address] Ayden Cam CO2 [Moles/Vol] 29.7 mmol/L Normal 21.0-32.0 [facility] Comment on above: Performed By: #### L ACT #### [facility] [address] [address] [address] Ayden Cam Creatinine [Mass/Vol] 0.61 mg/dL Normal 0.55-1.02 [facility] Comment on above: Performed By: #### L ACT #### [facility] [address] [address] [address] Ayden Cam EGFR-AF [place] ISLANDER >60 Normal >=60 [facility] Comment on above: Performed By: #### L ACT #### [facility] [address] [address] [address] Ayden Cam EGFR-NON AF [place] >60 Normal >=60 [facility] Comment on above: Performed By: #### L ACT #### [facility] [address] [address] [address] Ayden Cam Globulin (S) [Mass/Vol] 3.4 g/dL Normal [facility] Comment on above: Performed By: #### L ACT #### [facility] [address] [place] [address] Dr. Ayden Cam Glucose [Mass/Vol] 111 mg/dL Critically high 74-106 [facility] Comment on above: Performed By: #### L ACT #### [facility] [address] [address] [address] Ayden Cam Potassium [Moles/Vol] 3.8 mmol/L Normal 3.5-5.1 [facility] Comment on above: Performed By: #### L ACT #### [facility] [address] [place] [address] Dr. Ayden Cam Protein [Mass/Vol] 7.2 g/dL Normal 6.4-8.2 The [facility] Comment on above: Performed By: #### L ACT #### [facility] [address] [address] [address] Ayden Cam Sodium [Moles/Vol] 136 mmol/L Normal 136-145 [facility] Comment on above: Performed By: #### L ACT #### [facility] [address] [address] [address] Ayden Cam Urea nitrogen [Mass/Vol] 23.0 mg/dL Critically high 7.0-18.0 [facility] Comment on above: Performed By: #### L ACT #### [facility] [address] [address] [address] Ayden Cam Urea nitrogen/Creatinine [Mass ratio] 37.7 mg/mg Normal [facility] Comment on above: Performed By: #### L ACT #### [facility] [address] [place] [address] Dr. Ayden Cam TROPONIN, HIGH SENSITIVITYon 10-04-2022 HSTROP 8.9 pg/mL Normal 4.0-51.3 [facility] Comment on above: Result Comment: CUT- OFF POINTS HAVE BEEN ESTABLISHED BASED ON THE FOURTH UNIVERSAL DEFINITIONS OF MYOCARDIAL INFARCTION. THE UPPER REFERENCE LIMIT (URL) OF TROPONIN, DEFINED THE 99TH PERCENTILE OF cTnI DISTRIBUTION IN A REFERENCE POPULATION, HAS BEEN CONFIRMED THE DECISION THRESHOLD FOR [place] DIAGNOSIS. Performed By: #### L ACT #### [facility] [address] [place] [address] Dr. Ayden Cam LIPID PROFILEon 09-19-2022 CHOL-HDL RATIO NORM SEE BELOW Normal [facility] Comment on above: Result Comment: 3.3 - 4.4 LOW RISK 4.4 - 7.1 AVERAGE RISK 7.1 - 11.0 MODERATE RISK >11.0 HIGH RISK Performed By: #### L IPA #### [facility] [address] [place] [address] Dr. Ayden Cam Cholesterol [Mass/Vol] 116 mg/dL Normal <=200 [facility] Comment on above: Performed By: #### L IPA #### [facility] [address] [place] [address] Dr. Ayden Cam Cholesterol in HDL [Mass/Vol] 59 mg/dL Normal 40-60 [facility] Comment on above: Performed By: #### L IPA #### [facility] [address] [place] [address] Dr. Ayden Cam Cholesterol in LDL [Mass/Vol] 34.0 mg/dL Normal [facility] Comment on above: Performed By: #### L IPA #### [facility] [address] [place] [address] Dr. Ayden Cam Cholesterol.total/Cho lesterol in HDL [Mass ratio] 2.0 {ratio} Normal [facility] Comment on above: Performed By: #### L IPA #### [facility] [address] [address] [address] Ayden Cam HDL NORMAL > or = 60 mg/dl - LO W CARDIOVASCULAR RISK <40 mg/dl - HIGH CARDIOVASCULAR RISK Normal [facility] Comment on above: Performed By: #### L IPA #### [facility] [address] [address] [address] Ayden Cam LDL CALC NORMAL SEE BELOW Normal [facility] Comment on above: Result Comment: <100 mg/dl OPTIMAL 100 - 129 mg/dl NEAR OR ABOVE OPTIMAL 130 - 159 mg/dl BORDERLINE HIGH 160 - 189 mg/dl HIGH >190 mg/dl VERY HIGH Performed By: #### L IPA #### [facility] [address] [address] [address] Ayden Cam Triglyceride [Mass/Vol] 115 mg/dL Normal <=150 [facility] Comment on above: Performed By: #### L IPA #### [facility] [address] [address] [address] Ayden Cam VLDL CALC 23.0 mg/dL Normal [facility] Comment on above: Performed By: #### L IPA #### [facility] [address] [address] [address] Ayden Cam VITAMIN D 25 OHon 09-19-2022 VIT D 25-OH 89.3 ng/mL Normal [facility] Comment on above: Performed By: #### V ITAD #### [facility] [address] [address] [address] Ayden Cam VIT D RANGES SEE BELOW Normal [facility] Comment on above: Result Comment: <20 ng/mL Vit D deficient 20 - <30 ng/mL Vit D insufficient 30 - 100 ng/mL Vit D sufficient >100 ng/mL Potential Toxicity Performed By: #### V ITAD #### [facility] [address] [place] [address] Dr. Ayden Cam Office Visit (Cardiology)on 08-15-2022 Follow-up visit Diagnoses/Problems Assessed Atherosclerosis of coronary artery of [place] heart without angina pectoris (414.01) (I25.10) History of coronary artery bypass graft (V45.81) (Z95.1) Ischemic cardiomyopathy (414.8) (I25.5) Hyperlipidemia (272.4) (E78.5) Essential hypertension, benign (401.1) (I10) Never a smoker Overweight with body mass index (BMI) of 26 to 26.9 in adult (278.02,V85.22) (E66.3,Z68.26) Paroxysmal SVT (supraventricular tachycardia) (427.0) (I47.1) Orders Atherosclerosis of coronary artery of [place] heart without angina pectoris, Essential hypertension, benign, Hyperlipidemia Basic Metabolic Panel; Status:Active - Retrospective Authorization; Requested for:[id number]; Lipid Panel; Status:Active - Retrospective Authorization; Requested for:[id number]; Overweight with body mass index (BMI) of 26 to 26.9 in adult Healthy Weight Tips; Status:Complete - Retrospective Authorization; Done: [id number] Some eating tips that can help you lose weight.; Status:Complete - Retrospective Authorization; Done: [id number] SocHx: Never a smoker Tobacco Use Screening; Status:Complete; Done: [id number] Patient Instructions Please bring all medicines, vitamins, [...] She has a history of prior inferior [place], prior PCI with subsequent three-vessel CABG and [...] CHEST PAIN.CALL 911 IF PAIN PERSISTS. Nyamyc [id number] UNIT/GM External Powderapply topically to affected area [...] no s (more content not included)... Normal Zyncd Tobacco Screening.on Adult depression screening assessment No [facility] 250 DO Work Phone: Fall risk assessment a) No falls within the last year [facility] 250 DO Work Phone: Tobacco use status CPHS b) No [facility] [employer] 250 DO Work Phone: MRI Ankle w/o [...] by Wilder Arango on 08/01/2022 1102 Normal [facility] Senior Technologist Tobacco Screening.on 021 Tobacco use status CPHS b) No -[facility] 250 DO Work Phone: Vital Signs Date Time Vital Sign Value Performing Clinician Facility 04-10-2024 15:08-0400 Blood Pressure Location JENNIFER MARTINO [facility] 04-10-2024 15:08-0400 Diastolic blood pressure 80 mm[Hg] JENNIFER HARDYRY [facility] 04-10-2024 15:08-0400 Heart rate 75 /min SJ HARDYRY [facility] 04-10-2024 15:08-0400 Respiratory rate 16 /min JENNIFER MARTINO [facility] 04-10-2024 15:08-0400 Systolic blood pressure 131 mm[Hg] JENNIFER HARDYRY [facility] 08-14-2023 15:29-0500 Body height 161.3 cm Celso Garibay DO Work Phone: [facility] 08-14-2023 15:29-0500 Body mass index (BMI) [Ratio] 28.07 kg/m2 Celso Garibay DO Work Phone: [facility] 08-14-2023 15:29-0500 Body weight 73.03 kg Celso Garibay DO Work Phone: [facility] 08-14-2023 15:29-0500 Diastolic blood pressure 80 mm[Hg] Celso Garibay DO Work Phone: [facility] 08-14-2023 15:29-0500 Heart rate 56 /min Celso Garibay DO Work Phone: [facility] 08-14-2023 15:29-0500 Systolic blood pressure 138 mm[Hg] Celso Garibay DO Work Phone: [facility] 06-18-2023 15:15-0400 Diastolic blood pressure 78 mm[Hg] Gaby Tello DO Work Phone: [employer] 06-18-2023 15:15-0400 Heart rate 70 /min Gaby Tello DO Work Phone: [facility] [employer] 06-18-2023 15:15-0400 Respiratory rate 18 /min Gaby Tello DO Work Phone: [facility] [employer] 06-18-2023 15:15-0400 SaO2% (BldA) [Mass fraction] 96 % Gaby Tello DO Work Phone: [facility] [employer] 06-18-2023 15:15-0400 Systolic blood pressure 173 mm[Hg] Gaby Tello DO Work Phone: [facility] [employer] 06-18-2023 14:36-0400 Body temperature 97 [degF] Gaby Tello DO Work Phone: [facility] [employer] 06-18-2023 13:30-0400 Body height 160 cm Gaby Tello DO Work Phone: [facility] [employer] 06-18-2023 13:30-0400 Body mass index (BMI) [Ratio] 27.03 kg/m2 Gaby Tello DO Work Phone: [facility] [employer] 06-18-2023 13:30-0400 Body weight 69.22 kg Gaby Tello DO Work Phone: [facility] [employer] 11-02-2022 15:02-0500 Diastolic blood pressure 84 mm[Hg] MD Ziggy Dejesus Work Phone: [facility] 11-02-2022 15:02-0500 Heart rate 78 /min MD Ziggy Dejesus Work Phone: [facility] 11-02-2022 15:02-0500 Respiratory rate 18 /min MD Ziggy Dejesus Work Phone: [facility] 11-02-2022 15:02-0500 SaO2% (BldA) [Mass fraction] 100 % MD Ziggy Dejesus Work Phone: [facility] 11-02-2022 15:02-0500 Systolic blood pressure 161 mm[Hg] MD Ziggy Dejesus Work Phone: [facility] 11-02-2022 13:20-0500 Body height 160.02 cm MD Ziggy Dejesus Work Phone: [facility] 11-02-2022 13:20-0500 Body temperature 98.2 [degF] MD Ziggy Dejesus Work Phone: [facility] 11-02-2022 13:20-0500 Body weight 60.78 kg MD Ziggy Dejesus Work Phone: [facility] 11-01-2022 13:26-0500 Diastolic blood pressure 61 mm[Hg] MD Ziggy Dejesus Work Phone: [facility] 11-01-2022 13:26-0500 Heart rate 59 /min MD Ziggy Dejesus Work Phone: [facility] 11-01-2022 13:26-0500 Respiratory rate 20 /min MD Ziggy Dejesus Work Phone: [facility] 11-01-2022 13:26-0500 SaO2% (BldA) [Mass fraction] 99 % MD Ziggy Dejesus Work Phone: [facility] 11-01-2022 13:26-0500 Systolic blood pressure 124 mm[Hg] MD Ziggy Dejesus Work Phone: [facility] 11-01-2022 10:53-0500 Body height 160.02 cm MD Ziggy Dejesus Work Phone: [facility] 11-01-2022 10:53-0500 Body temperature 97.7 [degF] MD Ziggy Dejesus Work Phone: [facility] 11-01-2022 10:53-0500 Body weight 61.68 kg MD Ziggy Dejesus Work Phone: [facility] 10-24-2022 15:45-0500 Body height 159.38 cm Imad Asaad Other [facility] [employer] Other 10-24-2022 15:45-0500 Body mass index (BMI) [Ratio] 24.28 kg/m2 Imad Asaad Other [facility] [employer] Other 10-24-2022 15:45-0500 Body weight 61.69 kg Imad Asaad Other [facility] [employer] Other 10-24-2022 15:45-0500 Diastolic blood pressure 94 mm[Hg] Imad Asaad Other [facility] [employer] Other 10-24-2022 15:45-0500 Systolic blood pressure 133 mm[Hg] Imad Asaad Other [facility] [employer] Other 09-19-2022 00:00-0500 34 1 Ziggy M Hoy Work Phone: [facility] [employer] 250 DO Work Phone: Comment on above: [facility] 08-15-2022 15:23-0500 Body height 160.02 cm Ziggy M Hoy Work Phone: [facility] 250 DO Work Phone: 08-15-2022 15:23-0500 Body mass index (BMI) [Ratio] 26.22 kg/m2 Ziggy M Hoy Work Phone: [facility] 250 DO Work Phone: 08-15-2022 15:23-0500 Body surface area Derived from formula 1.7 m2 Ziggy Clements Hoy Work Phone: [facility] 250 DO Work Phone: 08-15-2022 15:23-0500 Body weight 67.13 kg Ziggy Tyree Hoy Work Phone: [facility] 250 DO Work Phone: 08-15-2022 15:23-0500 Diastolic blood pressure 82 mm[Hg] Ziggy Clements Hoy Work Phone: [facility] 250 DO Work Phone: 08-15-2022 15:23-0500 Heart rate 80 /min Ziggy Clements Hoy Work Phone: [facility] 250 DO Work Phone: 08-15-2022 15:23-0500 Systolic blood pressure 132 mm[Hg] Ziggy Clements Hoy Work Phone: [facility] 250 DO Work Phone: 06-02-2022 08:12-0400 Blood Pressure Location Santiago CARRILLO [facility] 06-02-2022 08:12-0400 Diastolic blood pressure 86 mm[Hg] Santiago CARRILLO [facility] 06-02-2022 08:12-0400 Heart rate 60 /min Santiago CARRILLO [facility] 06-02-2022 08:12-0400 Respiratory rate 16 /min Santiago CARRILLO [facility] 06-02-2022 08:12-0400 Systolic blood pressure 144 mm[Hg] Santiago CARRILLO [facility] 08-17-2021 09:47-0500 Body height 160.02 cm Ziggy M Hoy Work Phone: [facility] 250 DO Work Phone: 08-17-2021 09:47-0500 Body mass index (BMI) [Ratio] 25.01 kg/m2 Ziggy M Hoy Work Phone: [facility] 250 DO Work Phone: 08-17-2021 09:47-0500 Body surface area Derived from formula 1.67 m2 Ziggy M Hoy Work Phone: [facility] 250 DO Work Phone: 08-17-2021 09:47-0500 Body weight 64.05 kg Ziggy M Hoy Work Phone: [facility] 250 DO Work Phone: 08-17-2021 09:47-0500 Diastolic blood pressure 86 mm[Hg] Ziggy M Hoy Work Phone: [facility] 250 DO Work Phone: 08-17-2021 09:47-0500 Heart rate 72 /min Ziggy M Hoy Work Phone: [facility] 250 DO Work Phone: 08-17-2021 09:47-0500 Systolic blood pressure 134 mm[Hg] Ziggy M Hoy Work Phone: [facility] 250 DO Work Phone: Encounters Encounter Date Encounter Type Care Provider Facility Start: 08-05-2024 ambulatory JENNIFER Perez ty:[facility] Start: 04-10-2024 End: 04-10-2024 ambulatory JENNIFER MARTINO Facility:[facility] Start: 04-10-2024 End: 04-10-2024 Patient encounter procedure JENNIFER MARTINO [facility] Start: 03-11-2024 End: 03-11-2024 ambulatory JENNIFER MARTINO Facility:[facility] Start: 03-11-2024 End: 03-11-2024 Patient encounter procedure JENNIFER MARTINO [facility] Start: 03-07-2024 End: 03-07-2024 Evaluation and management of inpatient ASHLEIGH [facility] Start: 03-06-2024 End: 03-07-2024 Evaluation and management of inpatient [facility] Start: 03-06-2024 End: 03-06-2024 Evaluation and management of inpatient [facility] Start: 02-29-2024 End: 02-29-2024 Evaluation and management of inpatient ZIGGY [facility] Start: 02-27-2024 ambulatory [facility] Start: 02-27-2024 End: 02-27-2024 ambulatory [facility] Start: 01-17-2024 End: 01-17-2024 ambulatory STEPHANIE [facility] Start: 09-13-2023 End: 09-13-2023 ambulatory ALINA JAVIER Not Available Start: 08-14-2023 End: 08-14-2023 ambulatory [facility] Start: 08-14-2023 End: 08-14-2023 Office outpatient visit 15 minutes [facility] Work Phone: [facility] Comment on above: Atherosclerosis of c oronary artery of [place] heart without angina pectoris, unspecified vessel or lesion type; History of coronary artery bypass graft; Ischemic cardiomyopathy; Essential hypertension, benign Start: 06-18-2023 End: 06-18-2023 ambulatory GABY ENGEL [facility] Start: 06-18-2023 End: 06-18-2023 Subsequent hospital visit by physician Gaby Tello DO Work Phone: [facility] Comment on above: Post-menopausal blee ding; Inclusion cyst Start: 05-24-2023 Rx Renewal Ziggy Dejesus Work Phone: [facility] 250 DO Work Phone: Start: 05-17-2023 Patient encounter procedure Ziggy Dejesus Work Phone: [facility] 250 DO Work Phone: Start: 05-15-2023 ambulatory ZIGGY DEJESUS [facility] Start: 12-12-2022 End: 12-12-2022 ambulatory Imad Asaad Facility:[facility] Start: 12-12-2022 End: 12-12-2022 ambulatory MD Ziggy Dejesus Work Phone: [facility] Work Phone: Start: 12-12-2022 End: 12-12-2022 Patient encounter procedure MD Ziggy Dejesus Work Phone: [facility] Work Phone: Start: 11-20-2022 End: 11-20-2022 ambulatory Imad Asaad Other [facility] [employer] Other Start: 11-20-2022 Telephone encounter Imad Asaad [facility] Start: 11-10-2022 End: 11-10-2022 ambulatory Imad Asaad Facility:[facility] Start: 11-10-2022 End: 11-10-2022 Patient encounter procedure MD Ziggy Dejesus Work Phone: [facility] [place] Work Phone: Start: 11-02-2022 End: 11-02-2022 ambulatory Imad Asaad Facility:[facility] Start: 11-02-2022 End: 11-02-2022 Admission to same day surgery center MD Ziggy Dejesus Work Phone: [facility] Work Phone: Start: 11-02-2022 End: 11-02-2022 ambulatory MD Ziggy Dejesus Work Phone: [facility] Work Phone: Start: 11-01-2022 Telephone encounter Imad Asaad [facility] Start: 11-01-2022 End: 11-01-2022 ambulatory Imad Asaad Facility:[facility] Start: 11-01-2022 End: 11-01-2022 Admission to same day surgery center MD Ziggy Dejesus Work Phone: [facility] Work Phone: Start: 11-01-2022 End: 11-01-2022 ambulatory MD Ziggy Dejesus Work Phone: [facility] Work Phone: Start: 10-24-2022 End: 10-24-2022 ambulatory Imad Asaad Other [facility] [employer] Other Start: 10-24-2022 [facility] visit new patient Imad Asaad [facility] Start: 10-16-2022 End: 10-17-[address] ZIGGY DEJESUS Facility:[facility] Start: 10-09-2022 End: 10-10-[address] ZIGGY DEJESUS Facility:[facility] Start: 10-05-2022 Rx Renewal Ziggy Dejesus Work Phone: [facility] 250 DO Work Phone: Start: 10-04-2022 End: 10-06-[address] ZIGGY DEJESUS Facility:H1 Start: 09-19-2022 End: 09-20-[address] DOCTOR PATEL Facility:H1 Start: 08-15-2022 Office outpatient vi sit 15 minutes Ziggy Dejesus Work Phone: [facility] 250 DO Work Phone: Start: 08-15-2022 Patient encounter procedure Ziggy Dejesus Work Phone: [facility] 250 DO Work Phone: Start: 06-02-2022 End: 06-02-2022 Patient encounter procedure Santiago Guzman CARRILLO [facility] Start: 05-31-2022 Rx Renewal Ziggy Dejesus Work Phone: [facility] 250 DO Work Phone: Start: 02-07-2022 End: 02-07-2022 Patient encounter procedure Ziggy Dejesus MD Work Phone: [facility] Start: 02-07-2022 End: 02-07-2022 Subsequent hospital visit by physician Ziggy Dejesus MD Work Phone: [facility] Comment on above: Women's annual routi ne gynecological examination Start: 11-21-2021 Rx Renewal Ziggy Dejesus Work Phone: [facility] 250 DO Work Phone: Start: 08-17-2021 Office outpatient vi sit 15 minutes Ziggy Dejesus Work Phone: [facility] 250 DO Work Phone: Start: 08-19-2019 End: [...] 12-03-2018 Cystoscopic removal of ureteric stent JENNIFER MARTINO Appendectomy Ziggy M Hoy Work Phone: Appendectomy Santiago CARRILLO Bypass of stomach Santiago FALGUNI MCFARLANDPam Cataract surgery Ziggy M H oy Work Phone: Cholecystectomy Ziggy M Ho y Work Phone: Coronary artery bypass graft Ziggy M Hoy Work Phone: Coronary artery bypa ss graft operation planned Santiago CARRILLO Decompression of median nerve Ziggy M Hoy Work Phone: Esophagogastrostomy, antesternal or antethoracic Ziggy M Hoy Work Phone: History of coronary artery bypass grafting History of coronary artery bypass graft Ziggy M Hoy Work Phone: History of coronary artery bypass grafting History of coronary artery bypass graft Celso Garibay DO Work Phone: Kidney operation Ziggy M H oestefani Work Phone: Operation on nose Ziggy Dejesus Work Phone: Peripheral neuroplasty Cecilio Dejesus Work Phone: Repair of inguinal hernia Gentry CARRILLO Total colonoscopy Ziggy Dejesus Work Phone: Plan of Treatment Date Care Activity Detail Author Start: 02-07-2027 [facility] Start: 02-07-2025 Screening for malignant neoplasm of cervix Pap smear [facility] [employer] Start: 08-19-2024 [facility] Start: 08-13-2024 End: 08-13-2024 Patient encounter procedure 08/13/2024 11:30 AM EST Office Visit [facility] [address] [facility] [address] [place] [id number] Celso Garibay DO [address] [facility] [address] [place] [address] [facility] Start: 02-14-2024 Depression Screen Depression Screen [facility] [email or web address] Start: 02-12-2024 End: 08-14-2024 Alanine aminotransferase [Enzymatic activity/volume] in Serum or Plasma by With P-5'-P Alanine Aminotransferase Lab Routine History of coronary artery bypass graft Ischemic cardiomyopathy Expected: 02/12/2024 (Approximate), Expires: 08/14/2024 [facility] Work Phone: Comment on above: Expected: 02/12/2024 (Approximate), Expi res: 08/14/2024 Start: 02-12-2024 End: 08-14-2024 Aspartate aminotransferase [Enzymatic activity/volume] in Serum or Plasma by With P-5'-P Aspartate Aminotransferase Lab Routine Atherosclerosis of coronary artery of [place] heart without angina pectoris, unspecified vessel or lesion type Ischemic cardiomyopathy Expected: 02/12/2024 (Approximate), Expires: 08/14/2024 [facility] Work Phone: Comment on above: Expected: 02/12/2024 (Approximate), Expi res: 08/14/2024 Start: 02-12-2024 End: 08-14-2024 Lipid 1996 panel - Serum or Plasma Lipid Panel Lab Routine Atherosclerosis of coronary artery of [place] heart without angina pectoris, unspecified vessel or lesion type Expected: 02/12/2024 (Approximate), Expires: 08/14/2024 [facility] Service Area Work Phone: Comment on above: Expected: 02/12/2024 (Approximate), Expi res: 08/14/2024 Start: 08-14-2023 FUV, Provider: Celso Garibay, Status: Pen, Time: 3:00 PM FUV, Provider: Celso Garibay, Status: Julio, Time: 3:00 PM -[facility] 250 DO Work Phone: Start: 07-28-2023 Screening for malignant neoplasm of breast Breast cancer screen [facility] Start: 07-24-2023 Screening for malignant neoplasm of breast Mammogram [facility] Start: 07-03-2023 End: 07-03-2023 Patient encounter procedure 07/03/2023 4:45 PM EDT Office Visit [facility] [address] [id number] Gaby Chahal, DO [address] [place] [address] post-op BA 05/16 [facility] Comment on above: post-op BA 05/16 Start: 06-18-2023 End: 06-18-2023 Hysteroscopy bx endometrium&/polypc w/wo d&c DILATATION AND CURETTAGE HYSTEROSCOPY Post-menopausal bleeding Inclusion cyst 06/18/2023 2:01 PM EDT [facility] Start: 02-13-2023 End: 02-13-2023 Patient encounter procedure 02/13/2023 Office Visit Obstetrics and Gynecology Gaby Chahal, DO [address] [place], [place] [id number] [facility] Start: 12-12-2022 [facility] Start: 11-02-2022 [facility] Start: 11-01-2022 [facility] Start: 08-19-2022 Screening for malignant neoplasm of cervix Pap smear [facility] Start: 08-15-2022 FUV, Provider: Celso Garibay, Status: Pen, Time: 3:00 PM FUV, Provider: Celso Garibay, Status: Pen, Time: 3:00 PM [facility] 250 DO Work Phone: Start: 08-03-2022 Lipid panel Lipids [facility] Start: 09-26-2021 COVID-19 Vaccine (4 - Pfizer series) COVID-19 Vaccine (4 - Pfizer series) [facility] Start: 06-01-2019 Influenza vaccination Flu vaccine (#1) [place] Start: 05-09-2018 Pneumococcal Vaccine: Pediatrics (0 to 5 Years) and At-Risk Patients (6 to 64 Years) (2 - PCV) Pneumococcal Vaccine: Pediatrics (0 to 5 Years) and At-Risk Patients (6 to 64 Years) (2 - PCV) [facility] Start: 2014 Breast cancer screen Breast cancer screen [place] Start: 2014 Colon cancer screen colonoscopy Colon cancer screen colonoscopy [place] Start: 2014 Shingles Vaccine (1 of 2) Shingles Vaccine (1 of 2) [facility] Start: 08-26-2009 MMR Vaccines (1 of 1 - Standard series) MMR Vaccines (1 of 1 - Standard series) [facility] Start: 2009 Screening for malignant neoplasm of colon [facility] Start: 1999 Diabetes screen Diabetes screen [facility] Start: 1986 DTaP/Tdap/Td Vaccines (1 - Tdap) DTaP/Tdap/Td Vaccines (1 - Tdap) [facility] Start: 1985 Cervical cancer screen Cervical cancer screen [place] Start: 1985 Screening for malignant neoplasm of cervix [facility] Start: 1983 DTaP/Tdap/Td vaccine (1 - Tdap) DTaP/Tdap/Td vaccine (1 - Tdap) [facility] Start: 1982 Diabetes mellitus screening Diabetes Screening [facility] Start: 1982 Hepatitis C screening [facility] Start: 1979 HIV screen HIV screen [place] Start: 1979 HIV screening HIV screen [facility] Start: 1976 Depression Screen Depression Screen [facility] Start: 1975 DTaP/Tdap/Td vaccine (1 - Tdap) DTaP/Tdap/Td vaccine (1 - Tdap) [place] Start: 1974 Lipid panel Lipids [facility] Start: 1974 Lipid screen Lipid screen [place] Start: 1964 Hepatitis B vaccine (1 of 3 - 3-dose series) Hepatitis B vaccine (1 of 3 - 3-dose series) [facility] Start: 1964 Hepatitis B Vaccines (1 of 3 - 3-dose series) Hepatitis B Vaccines (1 of 3 - 3-dose series) [facility] Start: 1964 Hepatitis C screen Hepatitis C screen [place] Start: 1964 HIV screening HIV Screening [facility] Start: 1964 Lipid panel Lipid Panel [facility] Start: 1964 Screening for malignant neoplasm of colon [facility] Start: 1964 Yearly Adult Physical Yearly Adult Physical [facility] Actin smooth muscle IgG Ab [Units/volume] in Serum [facility] Alpha 1 antitrypsin [Mass/volume] in Serum or Plasma [facility] Alpha 1 antitrypsin phenotyping [Identifier] in Serum or Plasma by Immunofixation [facility] Ceruloplasmin [Mass/volume] in Serum or Plasma [facility] End: 08-19-2019 Cytopathology procedure, preparation of smear, genital source PAP SMEAR Lab Routine Well female exam with routine gynecological exam 1 Occurrences starting 08/19/2019 until 08/19/2019 [place] Comment on above: 1 Occurrences starting 08/19/2019 until 08/19/2019 End: 02-07-2022 Cytopathology procedure, preparation of smear, genital source PAP SMEAR Lab Routine Women's annual routine gynecological examination 1 Occurrences starting 02/07/2022 until 02/07/2022 [employer] Work Phone: Comment on above: 1 Occurrences starting 02/07/2022 until 02/07/2022 Hepatitis A virus Ab [Presence] in Serum by Immunoassay [facility] Hepatitis B core ant ibody measurement [facility] Hepatitis B virus khanna rface Ab [Presence] in Serum [facility] Hepatitis B virus khanna rface Ag [Presence] in Serum or Plasma by Immunoassay [facility] Hepatitis C virus Ig G Ab [Presence] in Serum or Plasma by Immunoassay [facility] Homogenous nuclear A b pattern [Titer] in Serum [facility] IgG [Mass/volume] in Serum or Plasma [facility] End: 06-18-2023 INITIATE PACU OXYGEN THERAPY PROTOCOL Initiate PACU Oxygen Therapy Protocol Respiratory Care Routine Continuous until discontinued starting 06/18/2023 [facility] [employer] Comment on above: Continuous until discontinued starting 0 06/18/2023 Lipoprotein a [Moles/volume] in Serum or Plasma [facility] Mitochondria M2 IgG Ab [Units/volume] in Serum [facility] Nuclear Ab [Titer] i n Serum [facility] Oxygen therapy [Mini mum Data Set] Initiate Oxygen Therapy Protocol Respiratory Care Routine As Needed until discontinued starting 06/18/2023 [facility] [employer] Comment on above: As Needed until discontinued starting Oxygen therapy [Mini mum Data Set] Initiate Oxygen Therapy Protocol Respiratory Care Routine As Needed until discontinued starting 06/18/2023 [facility] [employer] Comment on above: As Needed until discontinued starting Patient Education Hemorrhoids (DC) [facility] Work Phone: End: 06-18-2023 , urine POCT , urine POCT Point of Care Testing Routine One Time for 1 Occurrences starting 06/18/2023 until 06/18/2023 [employer] Comment on above: One Time for 1 Occurrences starting 06/01 until 06/18/2023 Surgical Pathology Surgical Path ology Lab Routine Post-menopausal bleeding Inclusion cyst Release Upon Ordering for 1 Occurrences starting 06/18/2023 [facility] Comment on above: Release Upon Ordering for 1 Occurrences starting 06/18/2023 [facility] Immunizations Immunization Date Immunization Notes Care Provider Sudhakar ponce 06-16-2022 influenza, injectabl e, quadrivalent, preservative free Ziggy M Hoy Work Phone: [facility] 250 DO Work Phone: 06-16-2022 zoster vaccine recombinant [facility]iggy M Hoy [facility] Work Phone: 08-01-2021 Pfizer-BioNTech COVI D-19 Vacc 30 MCG/0.3ML Intramuscular Suspension Ziggy M Hoy Work Phone: [facility] DO Work Phone: 06-30-2021 influenza virus vacc ine, unspecified formulation [facility]iggy M Hoy Work Phone: [facility] DO Work Phone: 06-03-2021 Influenza, injectabl e, Madin Huntington Canine Kidney, preservative free, quadrivalent Ziggy M Hoy Work Phone: [facility] DO Work Phone: 01-29-2021 Pfizer-BioNTech COVI D-19 Vacc 30 MCG/0.3ML Intramuscular Suspension [facility]iggy M Hoy [facility] Work Phone: 01-08-2021 Pfizer-BioNTech COVI D-19 Vacc 30 MCG/0.3ML Intramuscular Suspension Ziggy M Hoy Work Phone: [facility] DO Work Phone: 2020 influenza, injectabl e, quadrivalent, preservative free Ziggy M Hoy Work Phone: [facility] DO Work Phone: 07-23-2018 influenza, injectabl e, quadrivalent, preservative free Ziggy M Hoy Work Phone: [facility] 250 DO Work Phone: 07-26-2017 Influenza, injectabl e, Madin Renetta Canine Kidney, preservative free, quadrivalent Ziggy M Hoy Work Phone: [facility] 250 DO Work Phone: 05-09-2017 pneumococcal polysaccharide vaccine, 23 valent Ziggy M Hoy Work Phone: [facility] 250 DO Work Phone: 07-03-2015 influenza, seasonal, injectable, preservative free Ziggy M Hoy Work Phone: [facility] 250 DO Work Phone: 06-15-2014 influenza, seasonal, injectable Ziggy M Hoy Work Phone: [facility] 250 DO Work Phone: 07-29-2009 novel influenza-H1N1 -09, preservative-free, injectable Ziggy M Hoy Work Phone: [facility] 250 DO Work Phone: Payers Date Payer Category Payer Self-pay [id number] [phone] [id number] 2022 Unknown 2019 Unknown [employer] [place] BS [employer] [facility] LOCAL xxxxxxxxxxxxxxx 2019-Present [address] [place] [address] xxxxxxxxxxxxxxx [id number] 1964 Unknown [id number] 2.16.840.1.980025.3.579.2.593 1964 Unknown [id number] 2.16.840.1.466034.3.579.2.593 1964 Unknown [id number] 2.16.840.1.180757.3.579.2.593 1964 Unknown [id number] 2.16.840.1.393010.3.579.2.593 1964 Unknown [id number] 2.16.840.1.994003.3.579.2.593 1964 Unknown [id number] 2.16.840.1.820645.3.579.2.173 1964 Unknown [id number] 2.16.840.1.573031.3.579.2.175 1964 Unknown [id number] 2.16.840.1.318465.3.579.2.124 4 1964 Unknown [id number] 2.16.840.1.504337.3.579.2.125 9 1964 Unknown [id number] 2.16.840.1.106427.3.579.2.128 6 1964 Unknown [id number] 2.16.840.1.526027.3.579.2.128 6 1964 Unknown [id number] 2.16.840.1.041820.3.579.2.128 6 1964 Unknown [id number] 2.16.840.1.365446.3.579.2.128 6 1964 Unknown [id number] 2.16.840.1.355618.3.579.2.128 6 1964 Unknown [id number] 2.16.840.1.525781.3.579.2.128 6 1964 Unknown [id number] 2.16.840.1.966406.3.579.2.128 6 1964 Unknown [id number] 2.16.840.1.801320.3.579.2.727 1964 Unknown [id number] 2.16.840.1.667354.3.579.2.727 1964 Unknown [id number] 2.16.840.1.109268.3.579.2.727 1959 Unknown [id number] 1959 Unknown [id number] Unknown [id number] 2.16.840.1.895194.3.579.2.531 Unknown [id number] 2.16.840.1.824433.3.579.2.531 Unknown [id number] 2.16.840.1.721234.3.579.2.531 Unknown [id number] 2.16.840.1.315563.3.579.2.531 Social History Date Type Detail Facility Start: 08-19-2019 End: 04-10-2024 Tobacco smoking status NHIS Never smoker [place] Start: 08-19-2019 End: 06-18-2023 Alcohol intake Ex-drinker (finding) [place], [place] Start: 1965 Sex Assigned At Not on file [place] Start: 02-13-2023 End: 06-18-2023 No alcohol use No alcohol use [facility] 250 DO Work Phone: Start: 08-19-2019 End: 08-14-2023 Tobacco use and exposure Smokeless tobacco non-user [facility] Work Phone: Start: 02-13-2023 End: 06-18-2023 Sex Assigned At Female [facility] Start: 1965 Sex Assigned At Female [facility] Patient Health Questionnaire 9 item (PHQ-9) total score [Reported] 0 [facility] Start: 08-14-2023 Alcohol intake Lifetime non-drinker (finding) [facility] Work Phone: Start: 08-04-2023 End: 08-14-2023 Exposure to SARS-CoV-2 (event) Not sure [facility] NEGATED: Highlighted row Denies Caffeine use Denies Caffeine use -[facility] 250 DO Work Phone: Medical Equipment Procedure [...] 04-10-2024 Functional Status N/A [facility] 06-02-2022 Functional Status N/A [facility] Clinical Notes 06-02-2022 to 04-10-2024 Celso Garibay, - 08/14/2023 3:00 PM ESTPatient InstructionsDischarge InstructionsSejal Pro RN - 06/06/2023 11:34 AM EDT Note Date & Type Note Facility 04-10-2024 Hospital Discharge instructions Patient Education 04/10/2024 16:08:23 Kidney Stones, Nyza-ea-Uxkq Kidney Stones Kidney stones are rock-like masses [...] Follow these instructions at home: Medicines Take hltb-uvr-mthsgrv and prescription medicines only as told by [...] provider. Document Revised: 05/22/2022 Document Reviewed: 05/22/2022 [employer] Patient Education 2022 [employer]. Follow Up Care 03/10/2024 08:31:33 With:JENNIFER MARTINO PA-C, URL Address: [address] [place] [address] When:3 months [facility] 04-10-2024 Note Patient Education Urology [...] these instructions at home: Medicines ? Take xrze-ksv-aknargw and prescription medicines only as told by [...] enough fluid to keep your pee pale jovanny. This information is not intended to replace advice given to you by your health care provider. Make sure you discuss any questions you have with your health care provider. Document Revised: 05/22/2022 Document Reviewed: 05/22/2022 [employer] Patient Education ? 2022 [employer]. [facility] 02-27-2024 Note Attestation signed by Danielle Cesar MD at 02/27/2024 2:30 PM I personally saw and examined the patient on the same date of service as resident/fellow . I discussed the findings and therapeutic plan with the resident/fellow . I agree with the documentation, except for any edits/updates below. [facility] Gastroenterology New Patient Visit - History [...] pectoris (CMS/HCC) Atherosclerosis of coronary artery of [place] heart without angina pectoris Cellulitis of right [...] Mother Gretta Hyperlipidemia Father Munoz Hyperlipidemia Brother [place] Heart attack Brother Ray SOCIAL HISTORY: Social [...] HEENT: negative RESPI (more content not included)... [facility] 08-14-2023 History of Present illness Narrative [...] has a history of remote CABG, remote [place], remote PCI's before and after her CABG [...] Assessment/Plan 1. Atherosclerosis of coronary artery of [place] heart without angina pectoris, unspecified vessel or lesion type 2. History of coronary artery bypass graft 3. Ischemic cardiomyopathy 4. Essential hypertension, benign documented in this encounter [facility] Work Phone: 08-14-2023 Instructions Ej Braswell [...] of your visit. documented in this encounter [facility] Work Phone: 06-18-2023 Hospital Discharge instructions [...] call if excessive. Call the office at [phone] ([place]) [phone] ([place]) for an appointment in 2 weeks. documented in this encounter [facility] 06-06-2023 History of Present illness Narrative [...] with Dr. Engel. documented in this encounter [facility] 11-20-2022 Evaluation note Encounter Date Diagnosis Assessment Notes Nov, Elevated liver function tests (ICD-10 - R94.5) [employer] [facility] Evaluation note* Encounter Date Diagnosis Assessment Notes Treatment Notes Treatment Clinical Notes Oct, Abdominal pain (ICD-10 - R10.9) Oct, Common bile duct dilatation (ICD-10 - K83.8) Oct, Elevated liver enzymes (ICD-10 - R74.8) Oct, Constipation (ICD-10 - K59.00) Colonoscopy Start Miralax daily after colonoscopy. Titration dosing discussed with patient. Oct, Colon cancer screening (ICD-10 - Z12.11) [employer] Other 01-04-2023 NotePROGRESS NOTE NOTE DATE: 10/04/2022 CHIEF COMPLAINT: Abdominal pain. HISTORY OF PRESENT ILLNESS: The patient is a 57-year-old female with a history of dyslipidemia and gastric bypass surgery, who has been having increasing abdominal pain and flank pain. She was seen yesterday at the [place] [facility] for epigastric and upper abdominal [...] Prophylaxis: Lovenox. DISPOSITION: Home when medically stable.[id number] Discharge instructions Patient Education 06/02/2022 08:51:52 Kidney Stones, Rrfy-dg-Xibq Kidney Stones Kidney stones are rock-like masses [...] Follow these instructions at home: Medicines Take gxwa-iah-przxcpv and prescription medicines only as told by [...] 03/05/2009 Document Revised: 02/03/2020 Document Reviewed: 02/03/2020 [employer] Patient Education 2020 [employer]. Follow Up Care 05/27/2021 09:10:08 With:Santiago CARRILLO MD, URL Address: [address] [place] [address]- When: Unknown [facility] evaluation + Plan note Future Appointments Appointment Date:06/01/2023 08:00:00 AM Scheduled Provider:Santiago CARRILLO MD Location:[facility] Appointment Type:URO Office Visit [facility] evaluation + Plan note Future Appointments Appointment Date:04/10/2024 03:00:00 PM Scheduled Provider:JENNIFER MARTINO PA-C Location:[facility] Appointment Type:URO Office Visit [facility] evaluation note* Diagnosis Women's annual routine gynecological examination documented in this encounter [employer] Work Phone: evaluation noteNo assessment information available [facility] Work Phone: Evaluation noteNo InformationNort [email or web address] Other Evaluation note* Diagnosis Post-menopausal bleeding Postmenopausal bleeding Inclusion cyst Sebaceous cyst documented in this encounter [facility]* Diagnosis Atherosclerosis of coronary artery of [place] heart without angina pectoris, unspecified vessel or lesion type 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 Ischemic cardiomyopathy Other specified forms of chronic ischemic heart disease Essential hypertension, benign documented in this encounter [facility] Work Phone: History and physical note Author Evert Bruno [facility] November 01, 2022 12:40pm Note Date/Time November 01, 2022 1 2:40pm [facility] [address] [place] [address] Gastroenterology H&P Signed Patient: Jose Alberto Saleem MR#: [id number] : 1965 Acct:[id number] Age/Sex: 57 / F Adm Date: 3 Loc: Room: Type: [facility] Attending Dr: Evert Bruno MD Copies to: [...] M.D. Documented By: Evert Bruno MD 11/01/22 1238 Signed By: <Electronically signed by Evert Bruno MD> 11/01/22 1241 [facility] Work Phone: History and physical note Author Evert Bruno [facility] November 02, 2022 2:14pm Note Date/Time November 02, 2022 2 :14pm [facility] [address] [place] [address] Gastroenterology H&P Signed Patient: Jose Alberto Saleem MR#: [id number] : 1965 Acct:[id number] Age/Sex: 57 / F Adm Date: 3 Loc: Room: Type: [facility] Attending Dr: Evert Bruno MD Copies to: [...] signed by Evert Bruno MD> 11/02/22 1414 [facility] Work Phone: History general Narrative - Reported* Type Description Date Medical History impaired fasting glucose Medical History heart disease, [place] stents, CABG Medical History Hypertension Medical History hyperlipidemia 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 [employer] Surgical History CABG remote history Surgical History gastric bypass 2018 Surgical History multiple kidney stones removed Surgical History appendectomy Surgical History cyst on ovarian removed Surgical History bilateral carpe tunnel surgery 2021 Surgical History cholecystectomy Hospitalization History see surgical hx [facility] Other Hospital course Narrative No data available for this section [facility] Hospital Discharge instructions Additional Instructions [...] NOT operate machinery such as power tools, Open[employer] mowers, snow blowers, sewing machines, etc. for [...] problems. -Follow up with PCP. -Office number [phone]. [facility] Work Phone: Hospital Discharge instructions Additional Instructions [...] problems. -Follow up with PCP. -Office number [phone]. [facility] Work Phone: Hospital Discharge instructions No data available for this section [facility] progress note No data available for this section [facility] reason for referral (narrative)* Consultation (Routine) - Authorized Specialty Diagnoses / Procedures Referred By Contac t Referred To Contact Cardiology Diagnoses Atherosclerosis of coronary artery of [place] heart without angina pectoris, unspecified vessel or lesion type History of coronary artery bypass graft Procedures Follow Up In Cardiology Celso Garibay DO [address] [address], [address] [address] Celso Garibay DO [address] [facility] 2, [address] [address] Referral ID Status Reason Start Date Expiration Date V isits Requested Visits Authorized [id number] Authorized 08/14/2023 08/13/2024 1 1 [facility] Work Phone: Summary Purpose Family History [...] FoundDocuments on File Type Date Recorded 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 * [place] [employer] is class I * Recommendations, [...] She has a history of prior inferior [place], prior PCI with subsequent three-vessel CABG and [...] She has a history of prior inferior [place], prior PCI with subsequent three-vessel CABG and [...] section and content) DATE CREATED AUTHOR 03/26/2018 [facility] DATE CREATED AUTHOR AUTHOR'S ORGANIZ ATION 03/26/2018 [facility] DATE CREATED AUTHOR AUTHOR'S ORGANIZ ATION 08/02/2022 [facility] dical Specialist DATE CREATED AUTHOR AUTHOR'S ORGANIZ ATION 08/17/2022 [employer] DATE CREATED AUTHOR AUTHOR'S ORGANIZ ATION 10/17/2022 [facility] DATE CREATED AUTHOR AUTHOR'S ORGANIZ ATION 12/16/2022 [facility] DATE CREATED AUTHOR AUTHOR'S ORGANIZ ATION 06/23/2023 [facility] DATE CREATED AUTHOR AUTHOR'S ORGANIZ ATION 07/16/2023 [facility] DATE CREATED AUTHOR AUTHOR'S ORGANIZ ATION 08/16/2023 [facility] DATE CREATED AUTHOR AUTHOR'S ORGANIZ ATION 09/15/2023 [facility] dical Specialists EPIC DATE CREATED AUTHOR AUTHOR'S ORGANIZ ATION 01/19/2024 [facility] DATE CREATED AUTHOR AUTHOR'S ORGANIZ ATION 03/03/2024 [facility] DATE CREATED AUTHOR AUTHOR'S ORGANIZ ATION 03/07/2024 [facility] DATE CREATED AUTHOR AUTHOR'S ORGANIZ ATION 08/04/2024 [facility] Care Teams (unrecognized sec tion and content) Team Status: Active Member Role Status Dates Ziggy Dejesus MD Primary Care Provider Active Team Status: Inactive Member Role Status Dates Ziggy Dejesus MD Primary Care Provider Active Evert Bruno MD Attending Provider Active Central Office Frame Wirer Relationship Specialty Start Date End Date Ziggy Dejesus MD [address] [place] [address] PCP - General Family Medicine 08/19/19 Central Office Frame Wirer Relationship Specialty Start Date End Date Ziggy Dejesus MD [address] [place] [address] PCP - General Family Medicine 08/19/19 Central Office Frame Wirer Relationship Specialty Start Date End Date Ziggy Dejesus MD [address] [place] [address] PCP - General 08/17/21 REASON FOR VISIT (unrecogniz ed section and content) Specialty Diagnoses / Procedures Referred By Manfred flynn Referred To Contact Diagnoses Post-menopausal bleeding Inclusion cyst Post-menopausal bleeding [N95.0] Inclusion cyst [L72.0] Procedures [place] HYSTEROSCOPY BX ENDOMETRIUM&/POLYPC W/WO D&C [place] DESTRUCTION BENIGN LESIONS UP TO 14 DILATATION AND CURETTAGE HYSTEROSCOPY-REMOVAL OF INCLUSION CYST Gaby Chahal, DO [address] [place] [address] [facility] [address] [place] [address] Referral ID Status Reason Start Date Expiration Date Visits Re quested Visits Authorized [id number] 1 1 Reason Comments Annual Exam 1yr [...] 650 mg, Oral, ONCE, 1 dose, On 06/18/23 at 1345, Maximum dose of acetaminophen is [...] ider: Sigrid Mendoza RN)[id number] (NoRateChange - Provider: Lynnette Walden APRN - MARY)1432 (Paused - Provider: OTONIEL Fragoso CRNA - [...] BE BASED ON THE PRIMARY CLINICAL RECORDS. [facility] [employer] [facility]. provides no warranty or guarantee of the accuracy or completeness of information in this document.
[2024-08-05 14:40] LABS: Alanine Aminotransferase 93 U/L (14-59); Albumin Globulin Ratio 1.1; Albumin Level 3.7 g/dL (3.4-5.0); Alkaline Phosphatase 99 U/L (46-116); Anion Gap 15.2; Aspartate Amino Transferase 43 U/L (15-37); BUN Creatinine Ratio 21.1; Bilirubin Total 0.4 mg/dL (0.2-1.0); Calcium 9.8 mg/dL (8.5-10.1); Carbon Dioxide 25.7 mmol/L (21.0-32.0); Chloride 102 mmol/L (98-107); Estimated GFR (African America >60 (>=60 mL/min/1.73m^2); Estimated GFR (Non-African Ame >60 (>=60 mL/min/1.73m^2); Globulin 3.4 g/dL; Glucose 229 mg/dL (74-106); Magnesium 2.1 mg/dL (1.8-2.4); Phosphorus 3.8 mg/dL (2.6-4.7); Potassium 3.9 mmol/L (3.5-5.1); Sodium 139 mmol/L (136-145); Total Protein 7.1 g/dL (6.4-8.2)
[2024-08-06 04:16] LABS: Vitamin B12 >2000 pg/mL (232-1245)
[2024-08-09 10:09] LABS: Vitamin B1 (Thiamine), Blood 180.1 nmol/L (66.5-200.0)
== END 2024-08-05 10:12 | disposition home or self-care (01) ==
LOC: LAB 10:14
PROVIDERS: PCP Family Medicine; Visit Provider Nurse Practitioner Family
DX: K90.9 Intestinal malabsorption, unspecified (principal); Z98.84 Bariatric surgery status; I10 Essential (primary) hypertension; I25.10 Atherosclerotic heart disease of native coronary artery without angina pectoris; R60.9 Edema, unspecified; K21.9 Gastro-esophageal reflux disease without esophagitis
CPT/HCPCS: 36415; 80053; 82306; 82607; 82728; 82746; 83540; 83550; 83735; 84100; 84425; 85025

== ENCOUNTER 2024-09-29 08:24 | Outpatient (OUT) | payer BC, SELFPAY ==
--- OUTSIDE RECORDS SUMMARY | 2024-09-29 08:39 | XMS_ITS | CCD ---
Author Organization [facility] Care Team Providers Care Transportation Director Name Role Phone UNKNOWN, PROVIDER Unavailable Unavailable ASHLEY GRIGSBY Unavailable Unavailable UNKNOWN, PROVIDER Unavailable Unavailable ASHLYE GRIGSBY Unavailable Unavailable Ashley Grigsby Primary Care Provider Ashley Grigsby Unavailable Unavailable Unavailable Ashley Grigsby MD Primary Care Provider [phone] Unavailable Unavailable Ashley Grigsby Primary Care Physician PHOENIX, DR CELSO Orozco Admitting Unavailclaire GARIBAY, DR CELSO Orozco Attending Unavailabl e SEB, DR RAMIREZ Primary Care Unavailable PHOENIX, DR CELSO Orozco Consulting Unavailclaire GRIGSBY, DR RAMIREZ Primary Care Unavailable SEB, DR RAMIREZ Admitting Unavailable SEB, DR RAMIREZ Attending Unavailable SEB, DR RAMIREZ Consulting Unavailable ZIEBER, DR RONAN Guzman Consulting Unavailable GRECHNYGENTRY Consulting Unavailable KOO, INGA Consulting Unavailable MISC, DR MORALES Admitting Unavailable MISC, DR MORALES Attending Unavailable SEB, DR RAMIREZ Primary Care Unavailable DR ASHLEY GRIGSBY Consulting Unavailable SEB, DR RAMIREZ Admitting Unavailable SEB, DR RAMRIEZ Attending Unavailable SEB, DR RAMIREZ Primary Care Unavailable DR ASHLEY GRIGSBY Consulting Unavailable SEB, DR RAMIREZ Admitting Unavailable SEB, DR RAMIREZ Attending Unavailable SEB, DR RAMIREZ Primary Care Unavailable DR ASHLEY GRIGSBY Consulting Unavailable MD Ashley Grigsby Primary Care Provider [phone] MD Evert Bruno Attending Provider Evert Bruno Unavailable MD Ashley Grigsby Primary Care Provider [phone] MD Evert Bruno Attending Provider Ashley Grigsby MD Primary Care Provider GABY PHILLIPS Admitting Unavail able GABY PHILLIPS Attending Unavail able SEB ASHLEY Tyree Primary Care Unavailable SEBASHLEY Tyree Primary Care Unavailable Ashley Grigsby MD Primary Care Provider [phone] ALINA JAVIER Attending Unavailable STEPHANIE BERGER Attending Unavailable SEB ASHLEY Tyree Referring Unavailable HOYASHLEY M Primary Care Unavailable ALASTAL, YASEEN Attending Unavailable HOY, ASHLEY M Referring Unavailable HOY, ASHLEY M Primary Care Unavailable ALASTAL, YASEEN S Admitting Unavailable ALASTAL, YASEEN S Attending Unavailable SEB ASHLEY M Primary Care Unavailable MAGO MONAE Attending Unavailable ASHLEY GRIGSBY M Primary Care Unavailable ALASTAL, YASEEN S Attending Unavailable ALASTAL, YASEEN S Referring Unavailable ASHLEY GRIGSBY M Primary Care Unavailable BARRY MARTINO Attending Unavailab BARRY Rosa Attending Unavailab BARRY Rosa Attending Unavailab Ashley Ruiz MD Primary Care Provider Ari STRAUSS, Lynnette Guzman Emergency Provider [phone] Donis Arroyo DO Admit Provider [phone] Donis Arroyo DO Attending Provider Anita Hammonds RN Unavailable Unavailable CELSO GARIBAY Attending Unavailable CELSO GARIBAY Referring Unavailable ASHLEY GRIGSBY Primary Care Unavailable CELSO GARIBAY Attending Unavailable ASHLEY GRIGSBY Primary Care Unavailable Donis Arroyo Admitting Unavailable Sarita Bella Referring Unavailable Una Corrales Consulting Unavailable DuyAshley jara Tyree Primary Care Unavailable Kaiser Quijano Attending Unavailable Blas Garibay Consulting Unavailable Arvind Sanchez Consulting Unavailable Celso Ann Consulting Unavail able Nyasia Marquez Consulting Unavailable Samuel Olson Consulting Unavailab Cindy Urias Consulting Unavailable Cierra Artis Consulting Unavailable Durga Guerra Consulting Unavailab Toya Marsh Consulting Unavailable Jackie Daugherty Consulting Unavailable Allergies Allergy Classification Reported Allergen(s) Allergy Type Date of Onset Reaction(s) Facility (20 sources) Baclofen; 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: [Baclofen TABS] Drug Allergy Other (See Comments), Shortness of breath [place], [place] (20 sources) Latex; 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: [LATEX] Propensity to adverse reactions to drug Anaphylaxis, Shortness Of Breath, Anaphylaxis (disorder) [place], [place] (15 sources) Penicillins; 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: [penicillins] Propensity to adverse reactions to drug Hives, Anaphylaxis (disorder) [place], [place] (3 sources) rosuvastatin Drug Allergy 019 [place], [place] (20 sources) Sulfamethoxazole / Trimethoprim; 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: [Bactrim TABS] Drug Allergy 019 [place], [place] (11 sources) natural latex rubber Allergy to substance (finding) Shortness of breath [facility] [employer] [employer] 250 DO Work Phone: (11 sources) Penicillins; 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: [Penicillins] Allergy to drug (finding) Rash [facility] DO Work Phone: (18 sources) rosuvastatin; 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: [Crestor TABS] Drug Allergy 023 Elevated liver enzymes level (finding), Other [facility] (16 sources) Sulfonamides (Antibiotic); 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: [Sulfa Drugs] Allergy to drug (finding) [facility] (13 sources) levoFLOXacin; 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: [levofloxacin] Drug Allergy 017 Other (See Comments), Candidiasis (disorder) [facility] [employer] Phone: (4 sources) Phenazopyridine; 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: [PHENAZOPYRIDINE HCL] Drug Allergy 006 [facility] Work Phone: (3 sources) Simvastatin; 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: [SIMVASTATIN] Drug Allergy 006 [facility] Work Phone: (2 sources) Sulfonamides (Antibiotic) Propensity to adverse reactions to drug 022 Other (See Comments) [facility] (8 sources) Tobramycin; 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: [tobramycin] Drug Allergy 023 Eruption of skin (disorder) [facility] (1 source) Baclofen Drug Allergy [facility] (1 source) Latex Drug allergy (disorder) [facility] (5 sources) levoFLOXacin; 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: [Levaquin] Drug Allergy thrush [facility] (1 source) Penicillins Drug allergy (disorder) [facility] (1 source) rosuvastatin Drug Allergy [facility] (1 source) Sulfonamides (Antibiotic) Drug allergy (disorder) [facility] (10 sources) rosuvastatin; 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: [ROSUVASTATIN] Drug Allergy 017 [facility] (5 sources) Sulfamethoxazole; 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: [sulfamethoxazole] Drug Allergy 023 Hives, Hives, ([place]) 08/08/2011 [facility] (7 sources) Trimethoprim; 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: [TRIMETHOPRIM] Drug Allergy 023 Hives, Hives, ([place]) 08/08/2011 [facility] (6 sources) Fenofibrate; 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: [FENOFIBRATE] Drug Allergy 009 ([place]) 08/08/2011 [facility] ([facility] sources[facility] Penicillin Drug Allergy ([place]) 08/08/2011 [facility] Other (6 sources) Substance with sulfonamide structure and antibacterial mechanism of action (substance) Drug allergy 023 Shortness of breath [facility] Other (4 sources) Penicillins Propensity to adverse reactions to drug Hives, [facility] (1 source) Tobramycin Drug Allergy 023 Rash [facility] (3 sources) Fenofibrate; 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: [FENOFIBRATE MICRONIZED] Drug Allergy 009 [facility] (6 sources) Sulfonamides (Antibiotic); 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: [SULFA (SULFONAMIDE ANTIBIOTICS)] Propensity to adverse reactions to drug (disorder) Unknown Reaction [facility] (1 source) fluvastatin; 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: [FLUVASTATIN] Drug Allergy [facility] Repository (1 source) natural latex rubber; 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: [LATEX, NATURAL RUBBER] Propensity to adverse reactions to drug (disorder) [facility] (1 source) Phenazopyridine; Translations: [PHENAZOPYRIDINE] Drug Allergy [facility] (1 source) Baclofen Drug Allergy [facility] (1 source) Fenofibrate Drug Allergy [facility] (1 source) Latex Drug allergy (disorder) [facility] (1 source) levoFLOXacin Drug Allergy [facility] (1 source) Penicillins Drug allergy (disorder) [facility] Medications Current Medications Medication Drug Class(es) Dates Sig (Normalized) Sig (Original) amLODIPine 2.5 mg oral tablet (1 source) Dihydropyridine Calcium Channel Boom take 1 tablet by mouth once daily amLODIPine (Norvasc) 2.5 mg tablet Take 1 tablet (2.5 mg) by mouth once daily. Active aspirin 81 mg delayed release oral tablet (20 sources) Platelet Aggregation Inhibitor, Nonsteroidal Anti-inflammatory Drug Start: 06-11-2020 take 1 tablet by mouth once daily aspirin 81 mg EC tablet Indications: Atherosclerosis of coronary artery bypass graft of [place] heart without angina pectoris , History of coronary artery bypass graft take 1 tablet by mouth once daily 90 tablet 3 09/25/2023 Active Start: 10-27-2019 aspirin 81 mg, Refills(s) 0 Start Date: 10/27/19 Status: Ordered take 1 tablet by gavin th every twenty-four hours Aspirin 81 mg 1 tablet Orally Once a day for 30 day(s) Active ASPIRIN 81 PO Ta ke by mouth 0 Active atorvastatin 20 mg oral tablet (20 sources) HMG-CoA Reductase Inhibitor Start: 10-27-2019 End: 08-13-2024 take 1 tablet by mouth once daily atorvastatin (Lipitor) 20 mg tablet Indications: Mixed hyperlipidemia Take 1 tablet (20 mg) by mouth once daily. 90 tablet 3 05/14/2024 08/13/2024 Discontinued (Therapy completed) take 1 tablet by mouth at bedtim e Lipitor 40 MG 1 tablet Orally at hs for 30 day(s) Active Bariatric Multivitamins with 45 mg Iron (4 sources) Start: 06-02-2022 Bariatric Mult ivitamins with 45 mg Iron Oral, Daily, Refill(s) 0 Start Date: 06/02/22 Status: Ordered Calcium Carbonate (8 sources) take 1 tablet by mouth once daily calcium carbonate (CALCIUM 500 ORAL) Take 1 tablet by mouth once daily. Active take 1 tablet by mouth once milan y calcium carbonate (CALCIUM 500 ORAL) Take 1 [...] 1 capsule by mouth three times daily cevimeline (Evoxac) 30 mg capsule Take by mouth 3 times a day. 11/03/2020 Active Start: 10-27-2019 take 1 mg by mouth t hree times daily cevimeline See Instructions, mg Oral TID, Refills(s) 0 Start Date: 10/27/19 Status: Ordered Start: 04-17-2018 take 1 capsule by mo uth four times daily Cevimeline 30 mg capsule Active 30 MG PO Four times daily April 16, 2018 11:00pm take 25 mg by mouth three times daily CEVIMELINE HCL PO Take 25 mg by mouth 3 times daily 0 Active citalopram 40 mg oral tablet (11 sources) Serotonin Reuptake Inhibitor Start: 04-10-2024 take 1 tablet by mouth once daily citalopram (CeleXA) 40 mg tablet Take 1 tablet (40 mg) by mouth once daily. 08/03/2024 Active Start: 11-01-2022 take 4 tablets by [facility] once daily Citalopram 10 mg tablet Active 40 MG PO Daily November 01, 2022 12:00am Start: 11-01-2022 take 10 mg by mouth once daily Citalopram Active 10 MG PO Daily November 01, 2022 1:00am End: 08-13-2024 take 1 tablet by mouth once daily citalopram (CeleXA) 20 mg tablet Take 1 tablet (20 mg) by mouth once daily. 08/13/2024 Discontinued (Dose adjustment) take 2 tablets by [facility] once daily citalopram (CELEXA) 10 MG tablet Take 2 tablets by mouth daily 0 Active clopidogrel 75 mg oral tablet (2 sources) P2Y12 Platelet Inhibitor Start: 09-05-2024 End: 09-05-2025 take 1 tablet by mouth once daily clopidogrel (Plavix) 75 mg tablet Indications: Atherosclerosis of coronary artery bypass graft of [place] heart without angina pectoris , S/P PTCA (percutaneous transluminal coronary angioplasty) , History of coronary artery bypass graft Take 1 tablet (75 mg) by mouth once daily. 90 tablet 3 09/05/2024 09/05/2025 Active diclofenac sodium 0.03 mg/mg topical gel (16 sources) Nonsteroidal Anti-inflammatory Drug Start: 12-28-2020 diclofenac sodium 3 % gel twice a day. 12/28/2020 Active Start: 12-28-2020 Diclofenac Sod ium 3 % External Gel APPLY SPARINGLY TO THE AFFECTED AREA(S) TWICE DAILY. Quantity: 0 Refills: 0 Ordered: 28-Dec-2020 DO Start : 28-Dec-2020 Active docusate sodium 100 mg oral capsule (14 sources) take 1 capsule by mouth twice daily docusate sodium (Colace) 100 mg capsule Take 1 capsule (100 mg) by mouth 2 times a day. Active ergocalciferol 1.25 mg oral capsule (3 sources) Provitamin D2 Compound Start: 1 take 1 capsule by mouth two times weekly Vitamin D (Ergocalciferol) 81851 UNIT 1 capsule Orally TWICE a Week for 90 day(s) May, Active estradiol 0.1 mg/ml vaginal cream (5 sources) Estrogen Start: 4 Estradiol 0.01 % (0.1 mg/gram) cream Active 1 APPLICATOR VAGINAL Four times daily August 19, 2024 12:00am Start: 07-23-2024 estradiol (Est race) 0.01 % (0.1 mg/gram) vaginal cream Insert into the vagina once daily. 07/23/2024 Active Start: 04-10-2024 Estrace 0.1 mg /g Cream See Instructions, 42.5 gm, Refill(s) 6, apply a pea-sized amount vaginally and around the urethra nightly x 3 weeks, then 3x per week thereafter, [facility] #[id number], 160, cm, 04/10/24 15:13:00 EDT, Height/Length Dosing, 74, kg, 04/10/24 15:13:00 EDT, Weight Dosing Start Date: 04/10/24 Status: Ordered fluticasone propionate 0.05 mg/actuat metered dose nasal spray (19 sources) Corticosteroid Start: 11-01-2022 Fluticasone Pr opionate 50 mcg/actuation spray,suspension Active 1 SPRAY INTRANASAL Daily November 01, 2022 12:00am Start: 11-26-2020 take 1 spray(s) nasa l route twice daily fluticasone (Flonase) 50 mcg/actuation nasal spray Administer 1 spray into affected nostril(s) 2 times a day. 11/26/2020 Active Start: 11-26-2020 take 1 spray(s) nasa l route twice daily Fluticasone Propionate 50 MCG/ACT Nasal Suspension USE 1 SPRAY IN EACH NOSTRIL TWICE DAILY. Quantity: 0 Refills: 0 Ordered: 26-Nov-2020 DO Start : 26-Nov-2020 Active Start: 04-30-2020 fluticasone 0. 05 mg/inh Nasal [place] Refill(s) 0 Start Date: 04/30/20 Status: Ordered fluticasone 0.05 mg/inh Nasal [place] (3 sources) Start: 04-30-2020 fluticasone 0.05 mg/inh Nasal [place] Refill(s) 0 Start Date: 04/30/20 Status: Ordered furosemide 40 mg oral tablet (3 sources) Loop Diuretic take 1 tablet by mouth every twenty-fou r hours Lasix 40 MG 1 tablet Orally Once a day for 30 day(s) Active hydroCHLOROthiazide 12.5 mg oral tablet (19 sources) Thiazide Diuretic Start: 07-19-2023 End: 07-13-2024 take 6.25 mg by mouth once daily hydrochlorothiazide 12.5 mg Tab 6.25 mg = 0.5 tab(s), Oral, Daily, X 90 day(s), # 45 tab(s), Refills(s) 3, Pharmacy: [facility], 160, cm, 06/02/22 8:29:00 EDT, Height/Length Dosing, 61.2, kg, 06/02/22 8:29:00 EDT, Weight Dosing Start Date: 07/19/23 Stop Date: 07/13/24 Status: Ordered Start: 11-01-2022 take 6.26 mg by mout h once daily Hydrochlorothiazide 12.5 mg tablet Active 6.26 MG PO Daily November 01, 2022 12:00am Start: 11-01-2022 take 6.26 mg by mout h once daily Hydrochlorothiazide Active 6.26 MG PO Daily November 01, 2022 1:00am Start: 12-11-2020 End: 08-13-2024 take 0.5 tablet by mouth once daily hydroCHLOROthiazide (HYDRODiuril) 12.5 mg tablet Take 0.5 tablets (6.25 mg) by mouth once daily. 12/11/2020 08/13/2024 Discontinued (Discontinued by another clinician) Start: 12-11-2020 take 1 tablet by gavin th once daily hydrochlorothiazide 12.5 mg Tab 12.5 mg = 1 tab(s), Oral, Daily, # 90 tab(s), Refills(s) 3, Pharmacy: [facility], 160, cm, 05/27/21 8:19:00 EDT, Height/Length [...] Orally twice a days for 90 days 14 Nov, 2011 Active 2 ml metoclopramide 5 mg/ml prefilled syringe (1 source) Dopamine-2 Receptor Antagonist Start: 06-18-2023 End: 06-19-2023 10 mg, IntraVENous, ONCE PRN, 1 dose, Starting on Sun06/18/23 at 1449, Until Sun06/19/23 at 1449, Nausea Secondary antiemetic therapy. PACU only 24 hr mirabegron 50 mg extended release oral tablet (5 sources) beta3-Adrenergic Agonist Start: 08-05-2024 End: 07-31-2025 take 1 tablet by mouth once daily mirabegron (Myrbetriq) 50 mg tablet extended release 24 hr 24 hr tablet Take 1 tablet (50 mg) by mouth once daily. 08/05/2024 Active Start: 04-10-2024 End: 04-05-2025 take 1 tablet by mouth once daily mirabegron 25 mg oral tablet, extended release 25 mg = 1 tab(s), Oral, Daily, do not fill both mirabegron AND vibegron. only fill whichever has lower co-pay., X 30 day(s), # 30 tab(s), Refills(s) 11, Pharmacy: [id number], 160, cm, 04/10/24 15:13:00 EDT, Height/Length Dosing, 74, kg, 04/10/24 15:13:00 EDT, Weight Dosing Start Date: 04/10/24 Stop Date: 04/05/25 Status: Ordered mometasone furoate 1 mg/ml topical cream (15 sources) Corticosteroid Start: 08-19-2024 Mometasone 0.1 % cream Active 1 APPLIC TOPICAL Daily August 19, 2024 12:00am Start: 12-25-2020 mometasone (El gm) 0.1 % cream twice a day. 12/25/2020 Active Start: 12-25-2020 Mometasone Fur oate [...] day for 30 day(s) Active Multi Vitamin+ (4 sources) Start: 0 Multi Vitamin+ Refill(s) 0 [...] 0 Active multivit-min/ferrous fumarate (MULTI VITAMIN ORAL) (3 sources) take 1 tablet by mouth twice daily multivit-min/ferr ous fumarate (MULTI VITAMIN ORAL) Take 1 tablet by mouth 2 times a day. Active take 1 tablet by mouth twice sudeep ly multivit-min/ferrous fumarate (MULTI VITAMIN ORAL) Take 1 tablet by mouth 2 times a day. 0 Active Enfulgveatei-Lon-Chhc-Fa-Vit K (Bariatric Multivitamins) 45 mg iron- 800 mcg-120 mcg Capsule (4 sources) Start: 11-01-2022 take 1 capsule by mouth twice daily Jinwjtkitwmy-Mxk-Zrcn-Fa-Vit K (Bariatric Multivitamins) 45 mg iron- 800 mcg-120 mcg Capsule Active 1 CAP PO Twice daily November 01, 2022 1:00am Start: 11-01-2022 take 1 capsule by [facility] twice daily Mieyfbkxzvet-Fdk-Lrtr-Fa-Vit K (Bariatri c Multivitamins) 45 mg iron- 800 mcg-120 mcg Capsule Active 1 CAP PO Twice daily November 01, 2022 12:00am Multivitamins (3 sources) Multivitamins Or ally daily Active NIFEdipine 60 mg oral tablet (3 sources) Dihydropyridine Calcium Channel Boom take 1 capsule by mouth once daily Procardia 60 mg 1 capsule Orally daily for 30 day(s) Active nitroglycerin 0.4 mg sublingual tablet (18 sources) Nitrate Vasodilator Start: 021 End: 023 nitroglycerin (Nitrostat) 0.4 mg SL tablet Indications: Atherosclerosis of coronary artery of [place] heart without angina pectoris, unspecified vessel or lesion type Place 1 tablet (0.4 mg) under the tongue every 5 minutes if needed for chest pain. 90 tablet 3 08/14/2023 Active Nitrostat 0.4 MG 1 tablet under the tongue Sublingual as directed for 30 day(s) Active nystatin 100 unt/mg topical powder (14 sources) Polyene Antifungal Start: 05-05-2020 nystatin (Nyamyc) 100,000 unit/gram powder apply topically to affected area twice a day if needed 05/05/2020 Active omega-3 acid ethyl esters (detention) 1000 mg oral capsule (3 sources) take 2 capsules by mouth every twelve hours Lovaza 1 GM 2 capsules Orally Twice a day for 30 day(s) Active 2 ml ondansetron 2 mg/ml injection (5 sources) Serotonin-3 Receptor Antagonist Start: 06-18-2023 End: 06-19-2023 4 mg, IntraVENous, ONCE PRN, 1 dose, Starting on Sun06/18/23 at 1449, Until Sun06/19/23 at 1449, Nausea Initial antiemetic therapy. PACU only Start: 04-17-2018 End: 04-22-2018 take 1 tablet by mouth every eight hours as needed for nausea and vomiting Ondansetron (Zofran Odt) 8 mg tablet,disintegrating Discontinued 8 MG PO Q8H as needed for nausea and vomiting 10 5 April 16, 2018 11:00pm April 20, 2018 11:00pm April 21, 2018 11:01pm polyethylene glycol 3350 [id number] mg / potassium chloride 2970 mg / sodium bicarbonate 6740 mg / sodium chloride 5860 mg / sodium sulfate 92420 mg powder for oral solution (3 sources) Osmotic Laxative Start: 10-24-2022 take 236 g by mouth once Golytely 236 GM as directed Orally the day prior to colonoscopy for 1 days Oct, Active prasugrel 10 mg oral tablet (3 sources) P2Y12 Platelet Inhibitor take 10 mg by mouth once daily effient 10 mg once a day po Active PreserVision AREDS (2 sources) Start: 04-10-2024 PreserVision AREDS Refill(s) 0 Start Date: 04/10/24 Status: Ordered promethazine hydrochloride 25 mg oral tablet (7 sources) Phenothiazine Start: 11-01-2022 take 1 tablet by mouth every four hours as needed for nausea Promethazine 25 mg tablet Active 25 MG PO Q4H as needed for Nausea November 01, 2022 12:00am take 1 tablet by gavin th every [...] Start : 27-Dec-2020 Complete Start: 04-17-2018 take 1 tablet by gavin th twice daily Rabeprazole 20 mg tablet,delayed release (DR/EC) Active 20 MG PO Twice daily April 16, 2018 11:00pm take 1 tablet by gavin th three times daily Aciphex EC tablet Take 1 tablet (20 mg) by mouth 3 times a day. Active 5 ml sodium chloride 9 mg/ml injection [...] day(s), # 180 cap(s), Refills(s) 3, Pharmacy: [facility], 160, cm, 05/27/21 8:19:00 EDT, Height/Length Dosing, 61, kg, 05/27/21 8:19:00 EDT, Weight Dosing Start Date: 03/14/22 Stop Date: 03/09/23 Status: Ordered Start: 04-17-2018 take 1 capsule by [facility] once daily tamsulosin (Flomax) 0.4 mg 24 hr capsule Take 1 capsule (0.4 mg) by mouth once daily. 10/26/2020 Active traMADol hydrochloride 50 mg oral tablet (7 sources) Opioid Agonist Start: 11-01-2022 take 1 tablet by mouth three times daily as needed for pain Tramadol 50 mg tablet Active 50 MG PO Three times daily as needed for Pain November 01, 2022 12:00am take 1 tablet by [facility] every twenty-four hours traMADol HCl 50 MG 1 tablet as needed Orally Once a day Active ubidecarenone 200 mg oral capsule (3 sources) take 1 capsule by [facility] every twenty-four hours Coenzyme Q-10 200 MG 1 capsule with a meal Orally Once a day for 30 day(s) Active vibegron 75 MG Oral Tablet [Gemtesa] (1 source) Start: 04-10-2024 End: 04-05-2025 take 1 tablet by mouth once daily Gemtesa 75 mg oral tablet 75 mg = 1 tab(s), Oral, Daily, X 30 day(s), # 30 tab(s), Refills(s) 11, Pharmacy: [facility] #[id number], 160, cm, 04/10/24 15:13:00 EDT, Height/Length Dosing, 74, kg, 04/10/24 15:13:00 EDT, Weight Dosing Start Date: 04/10/24 Stop Date: 04/05/25 Status: Ordered vit C/E/Zn/coppr/lutein/zeaxan (PRESERVISION AREDS-2 ORAL) (3 sources) vit C/E/Zn/coppr/lutein/z eaxan (PRESERVISION AREDS-2 ORAL) Take by mouth twice a day. Active vit C/E/Zn/coppr /lutein/zeaxan (PRESERVISION AREDS-2 ORAL) Take by mouth twice a day. 0 Active Vitamin B Complex 1,000 (3 sources) Start: 05-25-2011 Vitamin B Comp joby 1,000 Orally daily May, Active Vitamin B-12 [...] Once a day for 30 day(s) Active vitamins A,C,W-nwsc-ocldqi (1 source) Start: 08-19-2024 vitamins A,C,R-vsgp-kourwn Active PO August 19, 2024 12:00am Zyrtec Hives Relief 10 MG (3 sources) [...] / oxyCODONE hydrochloride 5 mg oral tablet (8 sources) Opioid Agonist Start: 04-24-2018 End: 04-29-2018 take 1 tablet by mouth every four to six hours as needed for pain Oxycodone-Acetaminophen 5-325 mg tablet Discontinued 1 TAB PO EVERY 4-6 HOURS as needed for pain April 24, 2018 April 27, 2018 11:00pm April 28, 2018 11:01pm Start: 04-17-2018 take 2 tablets by mo [facility] every four hours as needed for pain Oxycodone-Acetaminophen (Percocet) 5-325 mg tablet Active 2 TAB PO Q4H as needed for pain April 17, 2018 ascorbic acid 226 mg / beta carotene [id number] unt / cuprous oxide 0.8 mg / dl-alpha tocopheryl acetate 200 unt / zinc oxide 34.8 mg oral capsule (11 sources) Vitamin C take 2 capsules by mouth twice daily PreserVision AREDS Oral Capsule TAKE 2 CAPSULE Twice daily Quantity: 0 Refills: 0 Ordered: 17-Aug-2021 DO Active Calcium (8 sources) Phosphate Binder, Calcium Calcium TABS TAKE 1 TABLET 3 times daily Quantity: 0 Refills: 0 Ordered: 15-Aug-2022 DO Active carvedilol 6.25 mg oral tablet (9 sources) alpha-Adrenergic Boom, beta-Adrenergic Boom Start: Carvedilol 6.25 MG Oral Tablet Quantity: 180 Refills: 0 Ordered: 03-Nov-2020 DO Start : 03-Nov-2020 Complete Start: 04-17-2018 End: 11-01-2022 take 1 tablet by mouth twice daily Carvedilol 25 mg tablet Discontinued 25 MG PO Twice daily April 16, 2018 11:00pm November 01, 2022 10:47am take 1 tablet by gavin every twelve hours Carvedilol 12.5 MG 1 tablet with food Orally Twice a day for 30 day(s) Active cephalexin 500 mg oral capsule (4 sources) Cephalosporin Antibacterial Start: 04-17-2018 End: 04-24-2018 take 1 capsule by mouth twice daily Cephalexin (Keflex) 500 mg capsule Discontinued 500 MG PO Twice daily 14 7 April 16, 2018 11:00pm April 22, 2018 11:00pm April 23, 2018 11:01pm dimenhyDRINATE 50 mg oral tablet (1 source) [...] / neomycin 3.5 mg/ml / polymyxin b 27525 unt/ml ophthalmic suspension (3 sources) Aminoglycoside Antibacterial, Polymyxin-class Antibacterial, Corticosteroid Start: 06-13-2021 take 2 drop(s) into the eye(s) four times daily Neomycin-Polymyxin- HC [id number] Ophthalmic Suspension instill 2 drops INTO AFFECTED [...] / nitrofurantoin, monohydrate 75 mg oral capsule (4 sources) Nitrofuran Antibacterial Start: 04-24-2018 End: 11-01-2022 take 1 capsule by mouth twice daily at mealtime Nitrofurantoin Monohyd/M-Cryst (Macrobid) 100 mg capsule Discontinued 100 MG PO Twice daily April 23, 2018 11:00pm November 01, 2022 10:47am must administer with a meal/food oxyCODONE hydrochloride [...] ranolazine 500 mg extended release oral tablet (7 sources) Anti-anginal Start: 04-17-2018 End: 11-01-2022 take 1 tablet by mouth twice daily Ranolazine 500 mg tablet extended release 12 hr Discontinued 500 MG PO Twice daily April 16, 2018 11:00pm November 01, 2022 10:47am take 1 tablet by mouth every twe [...] biliary tract] Chronic Calculus of urinary tract (12 sources) Kidney stone; Translations: [Calculus of kidney] Onset: 2 Episodic Cardiac and circulatory congenital anomalies (14 sources) Ventricular septal defect; Translations: [Ventricular septal defect] Onset: 3 08-09-2023 Chronic Cardiac dysrhythmias (14 sources) Paroxysmal supraventricular tachycardia; Translations: [Paroxysmal supraventricular tachycardia] Onset: 3 08-09-2023 Chronic Complication of device; implant or graft (4 sources) Arteriosclerosis of coronary artery bypass graft; Translations: [Atherosclerosis of coronary artery bypass graft(s) without angina pectoris] Onset: 3 09-05-2024 Chronic Coronary atherosclerosis and other heart disease (20 sources) Coronary atherosclerosis; Translations: [Coronary atherosclerosis of mi'kmaq coronary artery] Onset: 2 Chronic Coronary atherosclerosis and other heart disease (7 sources) Patient post percutaneous transluminal coronary angioplasty; Translations: [Coronary angioplasty status] Onset: 3 09-05-2024 Episodic Diabetes mellitus without complication (1 source) Diabetes mellitus without complication Onset: 7 Disorders of lipid metabolism (20 sources) Hyperlipidemia; Translations: [Other and unspecified hyperlipidemia] Onset: 3 08-09-2023 Chronic Essential hypertension (20 sources) Benign essential hypertension; Translations: [Benign essential hypertension] Onset: 2 08-14-2023 Chronic Genitourinary symptoms and ill-defined conditions (5 sources) Mixed incontinence; Translations: [Incontinence] Onset: 2 Chronic Genitourinary symptoms and ill-defined conditions (2 sources) Genitourinary tract problem; Translations: [Other symptoms and signs involving the genitourinary system] Onset: 4 Episodic Menopausal disorders (2 sources) Postmenopausal bleeding; Translations: [Postmenopausal bleeding] Onset: 3 06-18-2023 Chronic Nonspecific chest pain (3 sources) Atypical chest pain; Translations: [Other chest pain] Onset: 4 08-18-2024 Episodic Other aftercare (1 source) FPC (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; Translations: [RESIDENTIAL CURRENT USE OF ASPIRIN] Onset: 3 Episodic Other aftercare (1 source) Other rn interventional (current) drug therapy; 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] Onset: 3 Episodic Other diseases of bladder and urethra (2 sources) Detrusor overactivity; Translations: [Overactive bladder] Onset: 4 Chronic Other diseases of bladder and urethra (2 sources) Overactive bladder 04-10-2024 Chronic Other diseases of bladder and urethra (2 sources) Pain in urethra 04-10-2024 Episodic Other gastrointestinal disorders (1 source) Intestinal malabsorption, unspecified; Translations: [INTESTINAL MALABSORPTION UNS] Onset: 2 Chronic Other gastrointestinal disorders (2 sources) Other intestinal malabsorption; Translations: [Other intestinal malabsorption] Onset: 4 Chronic Other gastrointestinal disorders (4 sources) Bariatric surgery status; Translations: [BARIATRIC SURGERY STATUS] Onset: 3 Episodic Other gastrointestinal disorders (3 sources) Constipation; Translations: [Constipation, unspecified] Episodic Other gastrointestinal disorders (1 source) Constipation, unspecified Episodic Other liver diseases (2 sources) Liver disease, unspecified; Translations: [Liver disease, unspecified] Onset: 4 Chronic Other liver diseases (3 sources) Elevated liver enzymes level; Translations: [Abnormal levels of other serum enzymes] Episodic Other liver diseases (1 source) Abnormal levels of other serum enzymes Episodic Other nutritional; endocrine; and metabolic disorders (1 source) Hypervitaminosis D; Translations: [HYPERVITAMINOSIS D] Onset: 2 Chronic Other nutritional; endocrine; and metabolic disorders (2 sources) Body mass index 30+ - obesity; Translations: [Body mass index (BMI) 30.0-30.9, adult] Onset: 4 09-05-2024 Chronic Other nutritional; endocrine; and metabolic disorders (2 sources) Body mass index (BMI) 30.0-30.9, adult; Translations: [Body mass index (BMI) 30.0-30.9, adult] Onset: 4 Chronic Other nutritional; endocrine; and metabolic disorders (11 sources) Overweight in adulthood with body mass index of 25 or more but less than 30; Translations: [Overweight] Episodic Other nutritional; endocrine; and metabolic disorders (2 sources) Abnormal weight loss; Translations: [Abnormal weight loss] Onset: 4 Episodic Other screening for suspected conditions (not mental disorders or infectious disease) (8 sources) Other specified abnormal findings of blood chemistry; Translations: [Patient encounter status] Onset: 3 Episodic Other skin disorders (1 source) Epidermoid cyst; Translations: [Epidermal cyst] 06-18-2023 Episodic Other skin disorders (1 source) Epidermal cyst; Translations: [Epidermal cyst] Onset: 3 Episodic Other upper respiratory disease (1 source) Allergic rhinitis, unspecified; Translations: [Allergic rhinitis, unspecified] Onset: 4 Chronic Pancreatic disorders (not diabetes) (12 sources) Idiopathic acute pancreatitis without necrosis or infection; Translations: [Acute pancreatitis without necrosis or infection, unspecified] Onset: 3 Episodic Residual codes; unclassified (4 sources) Other specified health status; Translations: [Other drug allergy] Onset: 4 09-05-2024 Episodic Unclassified (1 source) Presence of aortocoronary bypass graft / Z95.1(ICD-9) Onset: 7 Unclassified (1 source) Athscl heart disease of mi'kmaq coronary artery w/o ang pctrs / I25.10(ICD-9) [...] female exam with routine gynecological exam] Unclassified (4 sources) Drug therapy finding 04-30-2020 Unclassified (4 sources) Finding of sensation of bladder 10-27-2019 Unclassified (1 source) CONTACT W/AND (SUSP) EXPOS COVID-19; Translations: [CONTACT W/AND (SUSP) EXPOS COVID-19] Onset: 3 Unclassified (1 source) Med Refill [...] Test Name Value Interpretation Reference Range Facility ECG 12 lead ECGon 08-22-2024 ECG 12 lead ECG [facility] Main [place] [address] [place] [id number] Electrocardiograph Report Signed Patient: Jose Alberto Saleem MR#: [id number] : 1965 Acct:[id number] Age/Sex: 59 / F ADM Date: 08/20/24 Loc: Room: [address] [place] [address] Type: DIS IN Attending Dr: Kaiser Quijano MD Ordering Provider: Blas Garibay DO Date of Service: 08/22/24 ECG/ECG 12 lead ECG: Post Angioplasty Procedure in AM Copies to: Test Reason : Blood Pressure : */* mmHG Vent. Rate : 66 BPM Atrial Rate : 66 BPM P-R Int : 178 ms QRS Dur : 94 ms QT Int : 452 ms P-R-T Axes : -6 113 52 degrees QTcB Int : 473 ms Normal sinus rhythm Left posterior fascicular block Nonspecific T wave abnormality Abnormal ECG Confirmed by Bella Stein ([id number]) on 08/22/2024 11:33:07 PM Referred By: Bella Stein Electronically Signed By: Bella Stein Transcribed By: MUS Signed By Bella Stein MD 4 2333 Normal [facility] Troponin I High Sensitivityo n 08-22-2024 Troponin I High Sensitivity 1211.6 pg/mL Off scale high 0.0-15.0 [facility] Comment on above: Result Comment: Crit ical Result : Called to and read back by: ROB MCDONALD at: 08/22/2024 06:38:37 by:RAMONA PERFORMED BY: [place] [address] PATHOLOGIST DESIGN AGENT JANA OLMEDO M.D. Performed By: #### H S TROP ####[facility] [id number] [place] [id number] [facility] Blood Urea Nitrogenon 2023 Urea nitrogen [Mass/Vol] 14 mg/dL Normal 7-25 [facility] Comment on above: Performed By: #### C REAT, BUN, PP, CBC, LYTES ####[facility] [place] [id number] [facility] Coagulation Profileon 2023 aPTT Coag (Bld) [Time] 35.9 s Normal 25.1-36.5 [facility] Comment on above: Result Comment: A he matocrit value greater than 55% may lead to inaccurate results in coagulation testing. Patients having hematocrit values >55% require a special collection tube for coagulation studies. Please contact the laboratory at [phone] for redraw instructions. PERFORMED BY: [address] RADAMESReneFawad [place] [id number] PATHOLOGIST DESIGN AGENT JANA OLMEDO M.D. Performed By: #### C REAT, BUN, PP, CBC, LYTES ####[place] [address] [place] [id number] [facility] INR Coag (PPP) [Relative time] 1.1 {INR} Normal [facility] Comment on above: Result Comment: INR Therapeutic Range A) Pre- and Peroperative OAT started two weeks before surgery. NOT HIP SURGERY: 1.5 - 2.5 HIP SURGERY: 2 - 3 B) Primary and secondary prevention of venous THROMBOSIS: 2 - 3 C) Active venous thrombosis, pulmonary embolism and prevention of recurrent venous thrombosis: 2 - 3 D) Prevention of arterial thromboembolism including patients with mechanical heart valves: 3 - 4.5 Performed By: #### C REAT, BUN, PP, CBC, LYTES ####[place] [address] [place] [address] [facility] PT Coag (PPP) [Time] 12.2 s Normal 9.0-12.9 [facility] Comment on above: Result Comment: A he matocrit value greater than 55% may lead to inaccurate results in coagulation testing. Patients having hematocrit values >55% require a special collection tube for coagulation studies. Please contact the laboratory at [phone] for redraw instructions. Performed By: #### C REAT, BUN, PP, CBC, LYTES ####[address] Complete Blood Count Auto Di ffon 08-21-2024 Basophils (Bld) [#/Vol] 0.0 10*3/uL Normal 0.0-0.2 [facility] Comment on above: Result Comment: PERF ORMED BY: [facility] [address] [place] [address] PATHOLOGIST DESIGN AGENT JANA OLMEDO M.D. Performed By: #### C REAT, BUN, PP, CBC, LYTES ####[address] Basophils/100 WBC (Bld) 0.3 % Normal . [facility] Comment on above: Performed By: #### C REAT, BUN, PP, CBC, LYTES ####[address] Eosinophils (Bld) [#/Vol] 0.2 10*3/uL Normal 0.0-0.45 [facility] Comment on above: Performed By: #### C REAT, BUN, PP, CBC, LYTES ####[address] Eosinophils/100 WBC (Bld) 3.9 % Normal . [facility] Comment on above: Performed By: #### C REAT, BUN, PP, CBC, LYTES ####[address] Erythrocyte distribution width (RBC) [Ratio] 12.7 % Normal 11.9-15.3 [facility] Comment on above: Performed By: #### C REAT, BUN, PP, CBC, LYTES ####[address] Hematocrit (Bld) [Volume fraction] 42.5 % Normal 34.0-46.4 [facility] Comment on above: Performed By: #### C REAT, BUN, PP, CBC, LYTES ####[address] [place] [address] [place] Hemoglobin (Bld) [Mass/Vol] 14.6 g/dL Normal 11.8-15.4 [facility] Comment on above: Performed By: #### C REAT, BUN, PP, CBC, LYTES ####[address] Lymphocytes (Bld) [#/Vol] 1.7 10*3/uL Normal 1.00-4.8 [facility] Comment on above: Performed By: #### C REAT, BUN, PP, CBC, LYTES ####[address] Lymphocytes/100 WBC (Bld) 35.0 % Normal . [facility] Comment on above: Performed By: #### C REAT, BUN, PP, CBC, LYTES ####[address] MCH (RBC) [Entitic mass] 30.8 pg Normal 24.7-34.3 [facility] Comment on above: Performed By: #### C REAT, BUN, PP, CBC, LYTES ####[address] MCV (RBC) [Entitic vol] 89.8 fL Normal 80-100 [facility] Comment on above: Performed By: #### C REAT, BUN, PP, CBC, LYTES ####[address] Mean Corpuscular HGB Conc 34.3 g/dL Normal 32.0-35.0 [facility] Comment on above: Performed By: #### C REAT, BUN, PP, CBC, LYTES ####[address] Monocytes (Bld) [#/Vol] 0.5 10*3/uL Normal 0.0-0.8 [facility] Comment on above: Performed By: #### C REAT, BUN, PP, CBC, LYTES ####[address] [place] [address] [place] Monocytes/100 WBC (Bld) 10.9 % Normal . [facility] Comment on above: Performed By: #### C REAT, BUN, PP, CBC, LYTES ####[address] Neutrophils (Bld) [#/Vol] 2.5 10*3/uL Normal 1.8-7.7 [facility] Comment on above: Performed By: #### C REAT, BUN, PP, CBC, LYTES ####[address] Neutrophils/100 WBC (Bld) 49.9 % Normal . [facility] Comment on above: Performed By: #### C REAT, BUN, PP, CBC, LYTES ####[address] NRBC% 0.1 /100{WBC} Normal 0-0.5 [facility] Comment on above: Performed By: #### C REAT, BUN, PP, CBC, LYTES ####[address] Platelet mean volume (Bld) [Entitic vol] 7.7 fL Normal 6.3-10.7 [facility] Comment on above: Performed By: #### C REAT, BUN, PP, CBC, LYTES ####[address] Platelets (Bld) [#/Vol] 172 10*3/uL Normal 150-450 [facility] Comment on above: Performed By: #### C REAT, BUN, PP, CBC, LYTES ####[address] RBC (Bld) [#/Vol] 4.73 10*6/uL Normal 3.60-5.00 [facility] Comment on above: Performed By: #### C REAT, BUN, PP, CBC, LYTES ####[address] WBC (Bld) [#/Vol] 4.9 10*3/uL Normal 3.8-11.6 [facility] Comment on above: Performed By: #### C REAT, BUN, PP, CBC, LYTES ####[place] [address] [place] [phone] [facility] Creatinineon 08-21-2024 Creatinine [Mass/Vol] 0.61 mg/dL Normal 0.60-1.20 [facility] Comment on above: Performed By: #### C REAT, BUN, PP, CBC, LYTES ####[place] [address] [place] [phone] [facility] Creatinine Clr Calc Pharmacy 97.73 Normal [facility] Comment on above: Result Comment: PERF ORMED BY: [place] [address] PATHOLOGIST DESIGN AGENT JANA OLMEDO M.D. Performed By: #### C REAT, BUN, PP, CBC, LYTES ####[place] [address] GFR/1.73 sq M.predicted MDRD (S/P/Bld) [Vol rate/Area] mL/min/{1.73_m2} Normal [facility] Comment on above: Performed By: #### C REAT, BUN, PP, CBC, LYTES ####[place] [id number] [facility] ECG 12 lead ECGon 08-21-2024 ECG 12 lead ECG [facility] [place] [address] Electrocardiograph Report Signed Patient: Jose Alberto Saleem MR#: [id number] 571 : 1965 Acct:[id number] Age/Sex: 59 / F ADM Date: 08/20/24 Loc: 4 Room: [address] [place] [address] Type: DIS IN Attending Dr: Kaiser Quijano MD Ordering Provider: Blas Garibay DO Date of Service: 08/21/24 ECG/ECG 12 lead ECG: Post Angioplasty Procedure Copies to: Test Reason : Blood Pressure : */* mmHG Vent. Rate : 56 BPM Atrial Rate : 56 BPM P-R Int : 200 ms QRS Dur : 90 ms QT Int : 456 ms P-R-T Axes : 53 264 -13 degrees QTcB Int : 440 ms Sinus bradycardia Low voltage QRS Nonspecific T wave abnormality Abnormal ECG Confirmed by Bella Stein ([id number]) on 08/22/2024 11:33:52 PM Referred By: Bella Stein Electronically Signed By: Bella Stein Transcribed By: MUS Signed By Bella Stein MD 4 2333 Normal [facility] Electrolyteson 08-21-2024 Anion gap [Moles/Vol] 11.0 mmol/L Normal 6.0-15.0 [facility] Comment on above: Performed By: #### C REAT, BUN, PP, CBC, LYTES ####[address] Chloride [Moles/Vol] 105 mmol/L Normal 98-107 [facility] Comment on above: Performed By: #### C REAT, BUN, PP, CBC, LYTES ####[address] CO2 [Moles/Vol] 27.9 mmol/L Normal 21.0-31.0 The [facility] Comment on above: Performed By: #### C REAT, BUN, PP, CBC, LYTES ####[place] [phone] [facility] Potassium [Moles/Vol] 3.9 mmol/L Normal 3.5-5.1 [facility] Comment on above: Performed By: #### C REAT, BUN, PP, CBC, LYTES ####[place] [id number] [facility] Sodium [Moles/Vol] 140 mmol/L Normal 136-145 [facility] Comment on above: Performed By: #### C REAT, BUN, PP, CBC, LYTES ####[place] [phone] [facility] NM lia perf SPECT rest stron 08-20-2024 NM lia perf SPECT rest str [facility] Main [place] [id number] Nuclear Medicine Report Signed Patient: Jose Alberto Saleem MR#: [id number] 571 : 1965 Acct:[id number] Age/Sex: 59 / F ADM Date: 08/18/24 Loc: Room: [address] [place] [address] Type: ADM INOo Attending Dr: Chucky Dunn MD Copies to: MD Chucky Cuenca MD W Scott Sheldon, DO Ordering Provider: Blas Garibay DO Date of Service: 08/20/24 NM/NM lia perf SPECT rest str: chest pain NUCLEAR MYOCARDIAL PERFUSION DATE OF PROCEDURE: 08/20/2024 PROCEDURE: The patient received a stress dose of Lexiscan and was then injected with 18.9 millicuries of Technetium 99M Sestamibi. For rest images the patient was injected with 6.5 millicuries of Technetium 99M Sestamibi. FINDINGS: The raw cine images were reviewed. The post stress and rest perfusion images were reviewed as well as the computer quantification.?There is a medium sized, moderate intensity lateral wall defect consistent with ischemia On the gated portion of the study, there was uniform thickening with an overall ejection fraction calculated at 59%.? TID score was within normal limits (0.9). CONCLUSION: 1. Abnormal MPI. There is a medium sized, moderate intensity lateral wall defect consistent with ischemia 2. Left ventricular function was preserved. Impression dictated by: Bella Stein M.D.08/20/2024 3:56 PM Dictation Location: [place] [address] Transcribed By: [facility] 08/20/24 1556 Dictated By: Bella Stein MD 08/20/24 1552 Signed By: 08/20/24 155 Normal [facility] A1C with Estimated Average G ajay 08-19-2024 Glucose [Mass/Vol] 117 mg/dL Normal [facility] Comment on above: Result Comment: PERF ORMED BY: [place] [address] PATHOLOGIST DESIGN AGENT JANA OLMEDO M.D. Performed By: #### A 1C [facility] eA, HS TROP ####[facility] [id number] [place] [address] [facility] HbA1c (Bld) [Mass fraction] 5.7 % High 4.3-5.6 [facility] Comment on above: Result Comment: Incr eased risk for diabetes: 5.7 - 6.4 diabetes: >6.4 glycemic control for adults with diabetes: <7.0 Performed By: #### A 1C [facility] eA, HS TROP ####[facility] [id number] [place] [address] [facility] ECG 12 lead ECGon 08-19-2024 ECG 12 lead ECG [facility] [place] [address] Electrocardiograph Report Signed Patient: Jose Alberto Saleem MR#: [id number] 571 : 1965 Acct:[id number] Age/Sex: 59 / F ADM Date: 08/18/24 Loc: Room: [address] [place] [address] Type: ADM INOo Attending Dr: Chucky Dunn MD Ordering Provider: Chucky Dunn MD Date of Service: 08/19/24 ECG/ECG 12 lead ECG: Chest Pain Copies to: Test Reason : Blood Pressure : */* mmHG Vent. Rate : 70 BPM Atrial Rate : 70 BPM P-R Int : 170 ms QRS Dur : 88 ms QT Int : 418 ms P-R-T Axes : 62 -47 37 degrees QTcB Int : 451 ms Sinus rhythm with occasional premature ventricular complexes Possible Left atrial enlargement Left anterior fascicular block Minimal voltage criteria for LVH, may be normal variant ( R in aVL ) Nonspecific T wave abnormality Abnormal ECG Confirmed by Bella Stein ([id number]) on 08/21/2024 12:00:39 AM Referred By: Bella Stein Electronically Signed By: Bella Stein Transcribed By: MUS Signed By Bella Stein MD 4 0000 Normal [facility] ECG 12 lead ECG [facility] [place] [address] Electrocardiograph Report Signed Patient: Jose Alberto Saleem MR#: [id number] 571 : 1965 Acct:[id number] Age/Sex: 59 / F ADM Date: 08/18/24 Loc: 3T Room: [address] [place] [address] Type: ADM INOo Attending Dr: Chucky Dunn MD Ordering Provider: Chucky Dunn MD Date of Service: 08/19/24 ECG/ECG 12 lead ECG: pt evalulation Copies to: Test Reason : Blood Pressure : */* mmHG Vent. Rate : 70 BPM Atrial Rate : 70 BPM P-R Int : 174 ms QRS Dur : 90 ms QT Int : 442 ms P-R-T Axes : 67 -55 19 degrees QTcB Int : 477 ms Normal sinus rhythm Leftward axis Confirmed by Torsten Monreal ([id number]) on 08/20/2024 11:52:24 PM Referred By: Bella Stein Electronically Signed By: Torsten Monreal Transcribed By: MUS Signed By Torsten Monreal MD 08/20/24 2352 Normal [facility] Troponin I High Sensitivityo n 08-19-2024 Troponin I High Sensitivity 4.6 pg/mL Normal 0.0-15.0 [facility] Comment on above: Result Comment: PERF ORMED BY: [place] [address] PATHOLOGIST DESIGN AGENT JANA OLMEDO M.D. Performed By: #### A 1C [facility], TROP ####[facility] [id number] X-ray reportOrdered By: Anna Wick on 08-19-2024 Study report [facility] [place] [address] [place] [address] XRay Report Signed Patient: Jose Alberto Saleem MR#: [id number] : 1965 Acct:[id number] Age/Sex: 59 / F ADM Date: 4 Loc: 3T Room: [address] [place] [address] Type: ADM INOo Attending Dr: Donis Arroyo DO Copies to: MD Donis Castle, DO~ Ordering Provider: Lynnette Chapman MD Date of Service: 08/18/24 XR/XR chest 2V*: Chest Pain PA AND LATERAL CHEST: CLINICAL HISTORY: Shortness of breath and chest pain between the shoulder blades COMPARISON: 10/18/2015 Median sternotomy wires are present. There is no focal parenchymal consolidation, effusion or pneumothorax. The cardiac, hilar and mediastinal silhouettes are within normal limits. There is no vascular congestion. The visualized bony thorax is intact. Dextroscoliotic curvature and endplate spurring are visualized. XR/XR chest 2V* IMPRESSION: NO ACUTE CARDIOPULMONARY ABNORMALITY. Impression dictated by: Thelma Wick M.D.08/19/2024 12:10 AM Dictation Location: [place] [address] Transcribed By: [facility] 08/19/249 Dictated By: Thelma Wick MD 08/18/242210 Signed By: 08/19/249 [facility] Work Phone: Alanine aminotransferase [En zymatic activity/volume] in Serum or PlasmaOrdered By: Lynnette Chapman on 08-18-2024 ALT [Catalytic activity/Vol] Alanine aminotransferase [Enzymatic activity/volume] in Serum or Plasma 7-52 [facility] Albumin [Mass/volume] in Ser um or Plasma by Bromocresol green (BCG) dye binding methoOrdered By: Lynnette Chapman on 08-18-2024 Albumin BCG dye [Mass/Vol] Albumin [Mass/volume] in Serum or Plasma by Bromocresol green (BCG) dye binding metho 3.5-5.7 [facility] Alkaline phosphatase [Enzyma tic activity/volume] in Serum or PlasmaOrdered By: Lynnette Chapman on 08-18-2024 ALP [Catalytic activity/Vol] Alkaline phosphatase [Enzymatic activity/volume] in Serum or Plasma 34-104 [facility] Aspartate aminotransferase [ Enzymatic activity/volume] in Serum or PlasmaOrdered By: Lynnette Chapman on 08-18-2024 AST [Catalytic activity/Vol] Aspartate aminotransferase [Enzymatic activity/volume] in Serum or Plasma 13-39 [facility] B-Type Natriuretic Peptideon 08-18-2024 Natriuretic peptide B (Bld) [Mass/Vol] 31.0 pg/mL Normal 5-100 [facility] Comment on above: Result Comment: PERF ORMED BY: [place] [address] PATHOLOGIST DESIGN AGENT JANA OLMEDO M.D. Performed By: #### H S TROP, LIPASE, PT, BMP, HEPATIC, CK, CBC, BNP ####[address] Basic Metabolic Panelon 08-01 Anion gap [Moles/Vol] 10.7 mmol/L Normal 6.0-15.0 e [facility] Comment on above: Performed By: #### H S TROP, LIPASE, PT, BMP, HEPATIC, CK, CBC, BNP #### [address] Performed By: #### H S TROP, LIPASE, PT, BMP, HEPATIC, CK, CBC, BNP ####[address] Calcium [Mass/Vol] 10.1 mg/dL Normal 8.6-10.3 [facility] Comment on above: Performed By: #### H S TROP, LIPASE, PT, BMP, HEPATIC, CK, CBC, BNP #### [address] Performed By: #### H S TROP, LIPASE, PT, BMP, HEPATIC, CK, CBC, BNP ####[address] Chloride [Moles/Vol] 102 mmol/L Normal 98-107 [facility] Comment on above: Performed By: #### H S TROP, LIPASE, PT, BMP, HEPATIC, CK, CBC, BNP #### [address] Performed By: #### H S TROP, LIPASE, PT, BMP, HEPATIC, CK, CBC, BNP ####[address] CO2 [Moles/Vol] 28.4 mmol/L Normal 21.0-31.0 [facility] Comment on above: Performed By: #### H S TROP, LIPASE, PT, BMP, HEPATIC, CK, CBC, BNP #### [address] Performed By: #### H S TROP, LIPASE, PT, BMP, HEPATIC, CK, CBC, BNP ####[address] Creatinine [Mass/Vol] 0.62 mg/dL Normal 0.60-1.20 [facility] Comment on above: Performed By: #### H S TROP, LIPASE, PT, BMP, HEPATIC, CK, CBC, BNP #### [address] Performed By: #### H S TROP, LIPASE, PT, BMP, HEPATIC, CK, CBC, BNP ####[address] Creatinine Clr Calc Pharmacy 95.72 Normal [facility] Comment on above: Result Comment: PERF ORMED BY: [place] [address] PATHOLOGIST DESIGN AGENT JANA OLMEDO M.D. Performed By: #### H S TROP, LIPASE, PT, BMP, HEPATIC, CK, CBC, BNP #### [address] Performed By: #### H S TROP, LIPASE, PT, BMP, HEPATIC, CK, CBC, BNP ####[address] GFR/1.73 sq M.predicted MDRD (S/P/Bld) [Vol rate/Area] mL/min/{1.73_m2} Normal [facility] Comment on above: Performed By: #### H S TROP, LIPASE, PT, BMP, HEPATIC, CK, CBC, BNP #### [address] Performed By: #### H S TROP, LIPASE, PT, BMP, HEPATIC, CK, CBC, BNP ####[address] Glucose [Mass/Vol] 94 mg/dL Normal 70-100 [facility] Comment on above: Result Comment: [facility] Glucose Reference Range is dependent on time and content of last meal. Glucose of more than 200 mg/dL in a nonstressed, ambulatory subject supports the diagnosis of Diabetes Mellitus. ADA recommended reference range Performed By: #### H S TROP, LIPASE, PT, BMP, HEPATIC, CK, CBC, BNP #### [address] Performed By: #### H S TROP, LIPASE, PT, BMP, HEPATIC, CK, CBC, BNP ####[address] Potassium [Moles/Vol] 4.1 mmol/L Normal 3.5-5.1 [facility] Comment on above: Performed By: #### H S TROP, LIPASE, PT, BMP, HEPATIC, CK, CBC, BNP #### [address] Performed By: #### H S TROP, LIPASE, PT, BMP, HEPATIC, CK, CBC, BNP ####[address] Sodium [Moles/Vol] 137 mmol/L Normal 136-145 [facility] Comment on above: Performed By: #### H S TROP, LIPASE, PT, BMP, HEPATIC, CK, CBC, BNP #### [address] Performed By: #### H S TROP, LIPASE, PT, BMP, HEPATIC, CK, CBC, BNP ####[address] Urea nitrogen [Mass/Vol] 22 mg/dL Normal 7-25 [facility] Comment on above: Performed By: #### H S TROP, LIPASE, PT, BMP, HEPATIC, CK, CBC, BNP #### [address] Performed By: #### H S TROP, LIPASE, PT, BMP, HEPATIC, CK, CBC, BNP ####[facility] [id number] [place] [address] [facility] Basophils Auto (Bld) [#/Vol] Ordered By: Lynnette Chapman on 08-18-2024 Basophils (Bld) [#/Vol] Automated basophil count 0.0-0.2 [facility] Basophils/100 WBC Auto (Bld) Ordered By: Lynnette Chapman on 08-18-2024 Basophils/100 WBC (Bld) Automated basophil % . [facility] Bilirubin.direct [Mass/volum e] in Serum or PlasmaOrdered By: Lynnette Chapman on 08-18-2024 Bilirubin.direct [Mass/Vol] Bilirubin.direct [Mass/volume] in Serum or Plasma 0.03-0.18 [facility] Bilirubin.total [Mass/volume ] in Serum or PlasmaOrdered By: Lynnette Chapman on 08-18-2024 Bilirubin [Mass/Vol] Bilirubin.total [Mass/volume] in Serum or Plasma 0.3-1.0 [facility] Calcium [Mass/volume] in Ser um or PlasmaOrdered By: Lynnette Chapman on 08-18-2024 Calcium [Mass/Vol] Calcium [Mass/volume ] in Serum or Plasma 8.6-10.3 [facility] Carbon dioxide, total [Moles /volume] in Serum or PlasmaOrdered By: Lynnette Chapman on 08-18-2024 CO2 [Moles/Vol] Carbon dioxide, tota l [Moles/volume] in Serum or Plasma 21.0-31.0 [facility] Chloride [Moles/volume] in S nina or PlasmaOrdered By: Lynnette Chapman on 08-18-2024 Chloride [Moles/Vol] Chloride [Moles/vol ume] in Serum or Plasma 98-107 [facility] Complete Blood Count Auto Di ffon 08-18-2024 Basophils (Bld) [#/Vol] 0.0 10*3/uL Normal 0.0-0.2 [facility] Comment on above: Result Comment: PERF ORMED BY: [facility] [address] [place] [address] PATHOLOGIST DESIGN AGENT JANA OLMEDO M.D. Performed By: #### H S TROP, LIPASE, PT, BMP, HEPATIC, CK, CBC, BNP #### [address] Basophils/100 WBC (Bld) 0.7 % Normal . [facility] Comment on above: Performed By: #### H S TROP, LIPASE, PT, BMP, HEPATIC, CK, CBC, BNP #### [address] Eosinophils (Bld) [#/Vol] 0.2 10*3/uL Normal 0.0-0.45 [facility] Comment on above: Performed By: #### H S TROP, LIPASE, PT, BMP, HEPATIC, CK, CBC, BNP #### [address] Eosinophils/100 WBC (Bld) 3.5 % Normal . [facility] Comment on above: Performed By: #### H S TROP, LIPASE, PT, BMP, HEPATIC, CK, CBC, BNP #### [address] Erythrocyte distribution width (RBC) [Ratio] 12.6 % Normal 11.9-15.3 [facility] Comment on above: Performed By: #### H S TROP, LIPASE, PT, BMP, HEPATIC, CK, CBC, BNP #### [address] Hematocrit (Bld) [Volume fraction] 43.7 % Normal 34.0-46.4 [facility] Comment on above: Performed By: #### H S TROP, LIPASE, PT, BMP, HEPATIC, CK, CBC, BNP #### [address] Hemoglobin (Bld) [Mass/Vol] 15.1 g/dL Normal 11.8-15.4 [facility] Comment on above: Performed By: #### H S TROP, LIPASE, PT, BMP, HEPATIC, CK, CBC, BNP #### [address] Lymphocytes (Bld) [#/Vol] 2.2 10*3/uL Normal 1.00-4.8 [facility] Comment on above: Performed By: #### H S TROP, LIPASE, PT, BMP, HEPATIC, CK, CBC, BNP #### [address] Lymphocytes/100 WBC (Bld) 36.5 % Normal . [facility] Comment on above: Performed By: #### H S TROP, LIPASE, PT, BMP, HEPATIC, CK, CBC, BNP #### [address] MCH (RBC) [Entitic mass] 30.7 pg Normal 24.7-34.3 [facility] Comment on above: Performed By: #### H S TROP, LIPASE, PT, BMP, HEPATIC, CK, CBC, BNP #### [address] MCV (RBC) [Entitic vol] 88.8 fL Normal 80-100 [facility] Comment on above: Performed By: #### H S TROP, LIPASE, PT, BMP, HEPATIC, CK, CBC, BNP #### [address] Mean Corpuscular HGB Conc 34.5 g/dL Normal 32.0-35.0 [facility] Comment on above: Performed By: #### H S TROP, LIPASE, PT, BMP, HEPATIC, CK, CBC, BNP #### [address] Monocytes (Bld) [#/Vol] 0.6 10*3/uL Normal 0.0-0.8 [facility] Comment on above: Performed By: #### H S TROP, LIPASE, PT, BMP, HEPATIC, CK, CBC, BNP #### [address] Monocytes/100 WBC (Bld) 16.97 % Normal 0.00-20.00 [facility] Comment on above: Performed By: #### H S TROP, LIPASE, PT, BMP, HEPATIC, CK, CBC, BNP #### [address] Monocytes/100 WBC (Bld) 10.5 % Normal . [facility] Comment on above: Performed By: #### H S TROP, LIPASE, PT, BMP, HEPATIC, CK, CBC, BNP #### [address] Neutrophils (Bld) [#/Vol] 3.0 10*3/uL Normal 1.8-7.7 [facility] Comment on above: Performed By: #### H S TROP, LIPASE, PT, BMP, HEPATIC, CK, CBC, BNP #### [address] Neutrophils/100 WBC (Bld) 48.8 % Normal . [facility] Comment on above: Performed By: #### H S TROP, LIPASE, PT, BMP, HEPATIC, CK, CBC, BNP #### [address] NRBC% 0.1 /100{WBC} Normal 0-0.5 [facility] Comment on above: Performed By: #### H S TROP, LIPASE, PT, BMP, HEPATIC, CK, CBC, BNP #### [address] Platelet mean volume (Bld) [Entitic vol] 7.9 fL Normal 6.3-10.7 [facility] Comment on above: Performed By: #### H S TROP, LIPASE, PT, BMP, HEPATIC, CK, CBC, BNP #### [address] Platelets (Bld) [#/Vol] 204 10*3/uL Normal 150-450 [facility] Comment on above: Performed By: #### H S TROP, LIPASE, PT, BMP, HEPATIC, CK, CBC, BNP #### [address] RBC (Bld) [#/Vol] 4.92 10*6/uL Normal 3.60-5.00 [facility] Comment on above: Performed By: #### H S TROP, LIPASE, PT, BMP, HEPATIC, CK, CBC, BNP #### [facility] [address] WBC (Bld) [#/Vol] 6.1 10*3/uL Normal 3.8-11.6 [facility] Comment on above: Performed By: #### H S TROP, LIPASE, PT, BMP, HEPATIC, CK, CBC, BNP #### [facility] [address] Creatine Kinaseon 08-18-2024 CK [Catalytic activity/Vol] 53 U/L Normal 30-223 [facility] Comment on above: Performed By: #### H S TROP, LIPASE, PT, BMP, HEPATIC, CK, CBC, BNP ####[facility] [id number] Creatine kinase [Enzymatic a ctivity/volume] in Serum or PlasmaOrdered By: Lynnette Chapman on 08-18-2024 CK [Catalytic activity/Vol] Creatine kinase [Enzymatic activity/volume] in Serum or Plasma 30-223 [facility] Creatinine [Mass/volume] in Serum or PlasmaOrdered By: Lynnette Chapman on 08-18-2024 Creatinine [Mass/Vol] Creatinine [Mass/v olume] in Serum or Plasma 0.60-1.20 [facility] ECG 12 lead ECGon 08-18-2024 ECG 12 lead ECG [facility] [place] [address] [place] [address] Electrocardiograph Report Signed Patient: Jose Alberto Saleem MR#: [id number] : 1965 Acct:[id number] Age/Sex: 59 / F ADM Date: 08/18/24 Loc: ER Room: Type: [facility] ER Attending Dr: Ordering Provider: Lynnette Chapman MD Date of Service: 08/18/24 ECG/ECG 12 lead ECG: Chest Pain Copies to: Test Reason : Blood Pressure : */* mmHG Vent. Rate : 68 BPM Atrial Rate : 68 BPM P-R Int : 170 ms QRS Dur : 80 ms QT Int : 422 ms P-R-T Axes : 57 -55 21 degrees QTcB Int : 448 ms Normal sinus rhythm Left anterior fascicular block Nonspecific ST and T wave abnormality Confirmed by Lynnette Chapman MD ([id number]) on 08/18/2024 11:22:40 PM Referred By: Electronically Signed By: Lynnette Chapman MD Transcribed By: MUS Signed By Lynnette Chapman MD 08/01 05/24 2322 Normal [facility] Eosinophils Auto (Bld) [#/Vo l]Ordered By: Lynnette Chapman on 08-18-2024 Eosinophils (Bld) [#/Vol] Automated eosinophil count 0.0-0.45 [facility] Eosinophils/100 WBC Auto (Bl d)Ordered By: Lynnette Chapman on 08-18-2024 Eosinophils/100 WBC (Bld) Automated eosinophil % . [facility] Erythrocyte distribution wid th Auto (RBC) [Ratio]Ordered By: Lynnette Chapman on 08-18-2024 Erythrocyte distribution width (RBC) [Ratio] Erythrocyte distribution width [Ratio] by Automated count 11.9-15.3 [facility] Globulin Calc (S) [Mass/Vol] Ordered By: Lynnette Chapman on 08-18-2024 Globulin (S) [Mass/Vol] Serum globulin measurement by calculation (mass/volume) [facility] Glucose [Mass/volume] in Ser um or PlasmaOrdered By: Lynnette Chapman on 08-18-2024 Glucose [Mass/Vol] Glucose [Mass/volume ] in Serum or Plasma 70-100 [facility] Comment on above: ADA recommended refe rence rangeRandom Glucose Reference Range is dependent on time and content of last meal. Glucose of more than 200 mg/dL in a nonstressed, ambulatory subject supports the diagnosis of Diabetes Mellitus. Hematocrit Auto (Bld) [Volum e fraction]Ordered By: Lynnette Chapman on 08-18-2024 Hematocrit (Bld) [Volume fraction] Hematocrit [Volume Fraction] of Blood by Automated count 34.0-46.4 [facility] Hemoglobin [Mass/volume] in BloodOrdered By: Lynnette Chapman on 08-18-2024 Hemoglobin (Bld) [Mass/Vol] Hemoglobin [Mass/volume] in Blood 11.8-15.4 [facility] Hepatic Panelon 08-18-2024 Albumin [Mass/Vol] 4.3 g/dL Normal 3.5-5.7 [facility] Comment on above: Performed By: #### H S TROP, LIPASE, PT, BMP, HEPATIC, CK, CBC, BNP ####[address] Albumin/Globulin [Mass ratio] 1.7 {ratio} Normal [facility] Comment on above: Performed By: #### H S TROP, LIPASE, PT, BMP, HEPATIC, CK, CBC, BNP ####[address] ALP [Catalytic activity/Vol] 89 U/L Normal 34-104 [facility] Comment on above: Performed By: #### H S TROP, LIPASE, PT, BMP, HEPATIC, CK, CBC, BNP ####[address] ALT [Catalytic activity/Vol] 42 U/L Normal 7-52 [facility] Comment on above: Performed By: #### H S TROP, LIPASE, PT, BMP, HEPATIC, CK, CBC, BNP ####[address] AST [Catalytic activity/Vol] 31 U/L Normal 13-39 [facility] Comment on above: Performed By: #### H S TROP, LIPASE, PT, BMP, HEPATIC, CK, CBC, BNP ####[address] Bilirubin [Mass/Vol] 0.4 mg/dL Normal 0.3-1.0 [facility] Comment on above: Performed By: #### H S TROP, LIPASE, PT, BMP, HEPATIC, CK, CBC, BNP ####[address] Bilirubin,Indirect 0.3 mg/dL Normal [facility] Comment on above: Performed By: #### H S TROP, LIPASE, PT, BMP, HEPATIC, CK, CBC, BNP ####[address] Bilirubin.indirect [Mass/Vol] 0.10 mg/dL Normal 0.03-0.18 [facility] Comment on above: Performed By: #### H S TROP, LIPASE, PT, BMP, HEPATIC, CK, CBC, BNP ####[facility] [place] [id number] [facility] Globulin (S) [Mass/Vol] 2.6 g/dL Normal [facility] Comment on above: Performed By: #### H S TROP, LIPASE, PT, BMP, HEPATIC, CK, CBC, BNP ####[place] [address] [place] [id number] [facility] Protein [Mass/Vol] 6.9 g/dL Normal 6.4-8.9 [facility] Comment on above: Performed By: #### H S TROP, LIPASE, PT, BMP, HEPATIC, CK, CBC, BNP ####[place] [address] [place] [id number] [facility] INR in Platelet poor plasma by Coagulation assayOrdered By: Lynnette Chapman on 08-18-2024 INR Coag (PPP) [Relative time] INR in Platelet poor plasma by Coagulation assay [facility] Comment on above: INR Therapeutic Rang e A) Pre- and Peroperative OAT started two weeks before surgery. NOT HIP SURGERY: 1.5 - 2.5 HIP SURGERY: 2 - 3B) Primary and secondary prevention of venous THROMBOSIS: 2 - 3C) Active venous thrombosis, pulmonary embolismand prevention of recurrent venous thrombosis: 2 - 3D) Prevention of arterial thromboembolismincluding patients with mechanical heart valves: 3 - 4.5 Leukocytes [#/volume] correc hayley for nucleated erythrocytes in Blood by Automated counOrdered By: Lynnette Chapman on 08-18-2024 WBC corrected for nucl RBC Auto (Bld) [#/Vol] Leukocytes [#/volume] corrected for nucleated erythrocytes in Blood by Automated coun 3.8-11.6 [facility] Lipaseon 08-18-2024 Lipase [Catalytic activity/Vol] 110.0 U/L High 11.0-82.0 [facility] Comment on above: Result Comment: PERF ORMED BY: [facility] [address] [place] [id number] PATHOLOGIST DESIGN AGENT JANA OLMEDO M.D. Performed By: #### H S TROP, LIPASE, PT, BMP, HEPATIC, CK, CBC, BNP ####[facility] [id number] [place] [id number] [facility] Lipase [Enzymatic activity/v olume] in Serum or PlasmaOrdered By: Lynnette Chapman on 08-18-2024 Lipase [Catalytic activity/Vol] Lipase [Enzymatic activity/volume] in Serum or Plasma High 11.0-82.0 [facility] Lymphocytes Auto (Bld) [#/Vo l]Ordered By: Lynnette Chapman on 08-18-2024 Lymphocytes (Bld) [#/Vol] Lymphocytes [#/volume] in Blood by Automated count 1.00-4.8 [facility] Lymphocytes/100 WBC Auto (Bl d)Ordered By: Lynnette Chapman on 08-18-2024 Lymphocytes/100 WBC (Bld) Lymphocytes/100 leukocytes in Blood by Automated count . [facility] MCH Auto (RBC) [Entitic mass ]Ordered By: Lynnette Chapman on 08-18-2024 MCH (RBC) [Entitic mass] MCH [Entitic mass] by Automated count 24.7-34.3 [facility] MCHC Auto (RBC) [Mass/Vol]Or dered By: Lynnette Chapman on 08-18-2024 MCHC (RBC) [Mass/Vol] MCHC [Mass/volume] by Automated count 32.0-35.0 [facility] MCV Auto (RBC) [Entitic vol] Ordered By: Lynnette Chapman on 08-18-2024 MCV (RBC) [Entitic vol] MCV [Entitic volume] by Automated count 80-100 [facility] Monocyte distribution width [Entitic volume] in Blood by AutomatedOrdered By: Lynnette Chapman on 08-18-2024 Monocyte distribution width Auto (Bld) [Entitic vol] Monocyte distribution width [Entitic volume] in Blood by Automated 0.00-20.00 [facility] Monocytes Auto (Bld) [#/Vol] Ordered By: Lynnette Chapman on 08-18-2024 Monocytes (Bld) [#/Vol] Automated blood monocyte count 0.0-0.8 [facility] Monocytes/100 WBC Auto (Bld) Ordered By: Lynnette Chapman on 08-18-2024 Monocytes/100 WBC (Bld) Automated monocyte % . [facility] Natriuretic peptide B [Mass/ Vol]Ordered By: Lynnette Chapman on 08-18-2024 Natriuretic peptide B (Bld) [Mass/Vol] BNP ser/plas 5-100 [facility] Neutrophils Auto (Bld) [#/Vo l]Ordered By: Lynnette Chapman on 08-18-2024 Neutrophils (Bld) [#/Vol] Neutrophils [#/volume] in Blood by Automated count 1.8-7.7 [facility] Neutrophils/100 WBC Auto (Bl d)Ordered By: Lynnette Chapman on 08-18-2024 Neutrophils/100 WBC (Bld) Automated neutrophil % . [facility] No Panel InformationOrdered By: Lynnette Chapman on 08-18-2024 Estimated GFR (CKD-EPI) > 60.0 mL/Min [facility] Creatinine Clearance (Chem 95.72 [facility] Nucleated erythrocytes [Pres ence] in Blood by Automated countOrdered By: Lynnette Chapman on 08-18-2024 Nucleated RBC Auto Ql (Bld) Nucleated erythrocytes [Presence] in Blood by Automated count 0-0.5 [facility] Platelet mean volume Auto (B ld) [Entitic vol]Ordered By: Lynnette Chapman on 08-18-2024 Platelet mean volume (Bld) [Entitic vol] Platelet mean volume [Entitic volume] in Blood by Automated count 6.3-10.7 [facility] Platelets Auto (Bld) [#/Vol] Ordered By: Lynnette Chapman on 08-18-2024 Platelets (Bld) [#/Vol] Platelets [#/volume] in Blood by Automated count 150-450 [facility] Potassium [Moles/volume] in Serum or PlasmaOrdered By: Lynnette Chapman on 08-18-2024 Potassium [Moles/Vol] Potassium [Moles/v olume] in Serum or Plasma 3.5-5.1 [facility] Protein [Mass/volume] in Ser um or PlasmaOrdered By: Lynnette Chapman on 08-18-2024 Protein [Mass/Vol] Protein [Mass/volume ] in Serum or Plasma 6.4-8.9 [facility] Prothrombin Time INRon 11-18 -2024 INR Coag (PPP) [Relative time] 1.0 {INR} Normal [facility] Comment on above: Result Comment: INR Therapeutic Range A) Pre- and Peroperative OAT started two weeks before surgery. NOT HIP SURGERY: 1.5 - 2.5 HIP SURGERY: 2 - 3 B) Primary and secondary prevention of venous THROMBOSIS: 2 - 3 C) Active venous thrombosis, pulmonary embolism and prevention of recurrent venous thrombosis: 2 - 3 D) Prevention of arterial thromboembolism including patients with mechanical heart valves: 3 - 4.5 PERFORMED BY: [place] [address] PATHOLOGIST DESIGN AGENT JANA OLMEDO M.D. Performed By: #### H S TROP, LIPASE, PT, BMP, HEPATIC, CK, CBC, BNP #### [facility] [address] [place] [address] PT Coag (PPP) [Time] 11.7 s Normal 9.0-12.9 [facility] Comment on above: Result Comment: A he matocrit value greater than 55% may lead to inaccurate results in coagulation testing. Patients having hematocrit values >55% require a special collection tube for coagulation studies. Please contact the laboratory at [phone] for redraw instructions. Performed By: #### H S TROP, LIPASE, PT, BMP, HEPATIC, CK, CBC, BNP #### [facility] [address] [place], [place] [id number] [facility] Prothrombin time (PT)Ordered By: Lynnette Chapman on 08-18-2024 PT Coag (PPP) [Time] Prothrombin time (PT) 9.0- 12.9 [facility] Comment on above: A hematocrit value g reater than 55% may lead to inaccurate results in coagulation testing. Patients having hematocrit values >55% require a special collection tube for coagulation studies. Please contact the laboratory at [phone] for redraw instructions. RBC Auto (Bld) [#/Vol]Ordere d By: Lynnette Chapman on 08-18-2024 RBC (Bld) [#/Vol] Erythrocytes [#/volu me] in Blood by Automated count 3.60-5.00 [facility] Serum or plasma albumin/glob ulin mass ratioOrdered By: Lynnette Chapman on 08-18-2024 Albumin/Globulin [Mass ratio] Serum or plasma albumin/globulin mass ratio [facility] Serum or plasma anion gap de terminationOrdered By: Lynnette Chapman on 08-18-2024 Anion gap [Moles/Vol] Serum or plasma an ion gap determination 6.0-15.0 [facility] Serum or plasma non-glucuron idated bilirubin measurement (mass/volume)Ordered By: Lynnette Chapman on 08-18-2024 Bilirubin.indirect [Mass/Vol] Serum or plasma non-glucuronidated bilirubin measurement (mass/volume) [facility] Sodium [Moles/volume] in Ser um or PlasmaOrdered By: Lynnette Chapman on 08-18-2024 Sodium [Moles/Vol] Sodium [Moles/volume ] in Serum or Plasma 136-145 [facility] Troponin I High Sensitivityo n 08-18-2024 Troponin I High Sensitivity 4.7 pg/mL Normal 0.0-15.0 [facility] Comment on above: Result Comment: PERF ORMED BY: [facility] [address] [place] [address] PATHOLOGIST DESIGN AGENT JANA OLMEDO M.D. Performed By: #### H S TROP ####[place] [id number] [facility] [facility] Troponin I High Sensitivity 5.1 pg/mL Normal 0.0-15.0 [facility] Comment on above: Result Comment: PERF ORMED BY: [facility] [address] [place] [address] PATHOLOGIST DESIGN AGENT JANA OLMEDO M.D. Performed By: #### H S TROP, LIPASE, PT, BMP, HEPATIC, CK, CBC, BNP ####[place] [id number] [facility] Troponin I.cardiac [Mass/vol ume] in Serum or Plasma by Detection limit <= 0.01 ng/Ordered By: Lynnette Chapman on 08-18-2024 Troponin I.cardiac DL <= 0.01 ng/mL [Mass/Vol] Troponin I.cardiac [Mass/volume] in Serum or Plasma by Detection limit <= 0.01 ng/ 0.0-15.0 [facility] Urea nitrogen [Mass/volume] in Serum or PlasmaOrdered By: Lynnette Chapman on 08-18-2024 Urea nitrogen [Mass/Vol] Urea nitrogen [Mass/volume] in Serum or Plasma 7-25 [facility] WBC Auto (Bld) [#/Vol]Ordere d By: Lynnette Chapman on 08-18-2024 WBC (Bld) [#/Vol] Leukocytes [#/volume ] in Blood by Automated count 3.8-11.6 [facility] XR chest 2V*on 08-18-2024 XR chest 2V* [facility] [place] [address] [place] [address] XRay Report Signed Patient: Jose Alberto Saleem MR#: [id number] : 1965 Acct:[id number] Age/Sex: 59 / F ADM Date: 08/18/24 Loc: Room: [address] [place] [address] Type: ADM INOo Attending Dr: Donis Arroyo DO Copies to: MD Donis Castle DO Ordering Provider: Lynnette Chapman MD Date of Service: 08/18/24 XR/XR chest 2V*: Chest Pain PA AND LATERAL CHEST: CLINICAL HISTORY: Shortness of breath and chest pain between the shoulder blades COMPARISON: 10/18/2015 Median sternotomy wires are present. There is no focal parenchymal consolidation, effusion or pneumothorax. The cardiac, hilar and mediastinal silhouettes are within normal limits. There is no vascular congestion. The visualized bony thorax is intact. Dextroscoliotic curvature and endplate spurring are visualized. XR/XR chest 2V* IMPRESSION: NO ACUTE CARDIOPULMONARY ABNORMALITY. Impression dictated by: Thelma Wick M.D.08/19/2024 12:10 AM Dictation Location: [place] [address] Transcribed By: [facility] 08/19/24 001 Dictated By: Thelma Wick MD 08/18/242210 Signed By: 08/19/24 001 Normal [facility] Reminderson 08-05-2024 Reminders Reminders From: Magdalena Longoria To: EU - Administrative; Sent: 08/05/2024 13:08:24 EST Show up: 03/01/2025 13:08:00 EDT Subject: 1 yr reminder Due Date/Time: 08/01/2025 13:08:00 EDT Reminder/Recall Patient needs scheduled with PIEDAD for a 1 yr f/u with KUB Normal [facility] Urology Office/Clinic Noteon 08-05-2024 Urology Office/Clinic Note Urology Office/Clinic Note Chief Complaint OAB HPI Staff 4 month f/u to starting Mirabegron 25mg. DX: kidney stone (KUB due 03/2025), OAB and urethral pain Estradiol cream started at last OV. Mirabegron 25m, Flomax qd PVR 86ml. Dysuria: a little burning right after urination and states it quickly goes away Incomplete bladder emptying: pt feel she is emptying the majority Hematuria: denies Frequency: every 2-3 hours Urgency: yes Nocturia: denies Stream: good steady Leaking: yes a few times a week Post void dripping: Wearing pads/ Depends: wears a pad and changes sometimes 1x daily Urge incontinence: if she has to hold it too long Stress incontinence: yes with coughing and sneezing Incontinence without Sensory Awareness: denies Abdominal pain: denies Flank pain: denies Sexual complaints: denies Review of Systems PHQ Score Initial Depression Screen Score: 0 SCORE no fever, chills, malaise, myalgia. no rash/lesions. no chest pain, palpitations, or SOB. no abdominal pain, nausea, vomiting. no unilateral calf swelling, redness, pain Physical Exam Vitals & Measurements T: 37 ???C(Temporal Artery) HR: 68(Peripheral) RR: 16 BP: 131/80 HT: 63 in HT: 160 cm WT: 74.2 kg WT: 163.24 lb BMI: 28.98 General: nontoxic, NAD Mouth: moist mucosa Lungs: normal respiratory effort Cardio: regular rate, good distal perfusion Abdomen: nondistended, no suprapubic distention or tenderness, no CVA tenderness Neurologic: Grossly normal Skin: No rashes or suspicious lesions Assessment/Plan 1. OAB (overactive bladder) (N32.81: Overactive bladder) 04/10/24: BBSQ 23/3 poor . wears 2-3 pads/day. UUI >> VIDAL. Will send rx for Beta-3s, Mirabegron and Vibegron. Pt to fill whichever is covered/has lower co-pay. Risks/benefits/side effects discussed Not a candidate for Anticholinergics due to the following reasons: R eye has blocked tear duct. Uses Rx Refresh drops per Ophthalmology. 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 On Cevimeline for this. Has chronic constipation. On Metamucil for this. TODAY: PVR 86ml. UA completed in office today shows no microhematuria or signs of infection. Started Myrbetriq 25mg. Only $5/mo co-pay. Has seen some good improvement in sx, although still not at goal. BBSQ 18 poor . Only 1 pad per day now. Discussed increasing dose to 50mg, pt would like to try this. Will monitor BP. Refills sent. -Increase Myrbetriq from 25mg to 50mg qd Ordered: 03755 Measure Post Void residual urine and/or bladder capacity by US- non-imaging E&M of Est. Patient Moderate 30-39 Min 00327 Urnls Dip Stick Auto w/o Microscopy POC 89087 2. Urethral pain (R39.89: Other symptoms and signs involving the genitourinary system) 04/10/24: UA shows trace leuks only. Will not send for additional testing. Pt doesn't have burning during urination. Just gets intermittent pain in urethra at random times. This has not responded to several courses of abx per PCP. Pt went through menopause age 50. Does have vaginal dryness. Discussed sx could be due to atrophy. We will start pt on topical Estrogen cream. Reasoning, side effects, risks/benefits discussed. Rx sent to pharmacy. If no improvement at f/u, consider cysto. TODAY: Marked improvement in sx since starting Estrogen cream. Does better with daily dosing, noticed sx worsening when dropped to 3x/week so went back to daily. Told her this is fine. No bothersome side effects. Pt also has noticed increased libido which is a pleasant surprise. ( but says it's been long enough that she's starting to consider dating again) -Continue Estrogen cream 3. Kidney stone (N20.0: Calculus of kidney) Pt [...] info for her to review at home. TODAY: Passed a stone about a week ago. -continue Flomax -decrease Oxalates in diet -KUB in 1 yr - ordered today Ordered: XR Abdomen 1 View Orders: mirabegron, 50 mg = 1 tab(s), Oral, Daily, X 90 day(s), # 90 tab(s), Refills(s) 3, Pharmacy: [facility] [id number], 160, cm, 08/05/24 11:29:00 EST, Height/Length Dosing, 74.2, kg, 08/05/24 11:29:00 EST, Weight Dosing tamsulosin, 0.4 mg = 1 cap(s), Oral, Daily, # 90 cap(s), Refills(s) 3, Pharmacy: [facility], 160, cm, 08/05/24 11:29:00 EST, Height/Length Dosing, 74.2, kg, 08/05/24 11:29:00 EST, Weight Dosing Follow-up With When Contact Information JENN[place]ER MARTINO PA-C, URL Within 1 year Additional Instructions: Patient Education Kidney Stones, Powk-mg-Svru Problem List/Past Medical History Ongoing Anticoagulated Feeling (more content not included)... Normal [facility] Comment on above: Result Comment: Elec tronically Signed By: J[place]ER M[place] PA-C\.br\Date and Time Signed: 08/05/24 12:20 EST Reminderson 06-06-2024 Reminders Reminders From: Bruna Gabriel To: EU - Administrative; Sent: 04/10/2024 15:56:05 EDT Show up: 06/05/2024 15:55:00 EDT Subject: 8 to 10 wk f/u Due Date/Time: 06/19/2024 15:54:00 EDT Reminder/Recall patient seen on 04/10/2024. patient needs an 8 to 10 wk f/u. Appointment due by 06/19/2024 [place] with [facility] PT SCHEDULED JUL 03, 2024 Normal [facility] Urology Office/Clinic Noteon 04-10-2024 Urology Office/Clinic Note [...] E&M of Est. Patient High 40-54 Min 26443 Urnls Dip Stick Auto w/o Microscopy POC 53044 2. OAB (overactive bladder) (N32.81: Overactive bladder) BBSQ 23/3 poor wears 2-3 pads/day UUI >> VIDAL Discussed tx options for bothersome urinary sx including oral medications, Botox, SNM. Brief discussion today regarding Botox/SNM but did not go into elaborate detail, would address full risks/benefits/details of procedure prior to scheduling. Medication management [...] E&M of Est. Patient High 40-54 Min 86131 3. Urethral pain (R39.89: Other symptoms and [...] E&M of Est. Patient High 40-54 Min 80783 Orders: estradiol topical, See Instructions, 42.5 gm, Refill(s) 6, apply a pea-sized amount vaginally and around the urethra nightly x 3 weeks, then 3x per week thereafter, [facility] #[id number], 160, cm, 04/10/24 15:13:00 EDT, Height/Length Dosing, 74, kg, 04/10/24 15:13... mirabegron, 25 mg = 1 tab(s), Oral, Daily, do not fill both mirabegron AND vibegron. only fill whichever has lower co-pay., X 30 day(s), # 30 tab(s), Refills(s) 11, Pharmacy: [facility] #[id number], 160, cm, 04/10/24 15:13:00 EDT, Height/Length Dosing, 74, k... vibegron, 75 mg = 1 tab(s), Oral, Daily, X 30 day(s), # 30 tab(s), Refills(s) 11, Pharmacy: [facility] #[id number], 160, cm, 04/10/24 15:13:00 EDT, Height/Length Dosing, 74, kg, 04/10/24 15:13:00 EDT, Weight Dosing Total time spent reviewing previous notes/results/external documents, preparing the chart, conducting the encounter with the patient and family, ordering tests/medications, and documenting the encounter was 40 minutes. Follow-up With When Contact Information J[place]ER MART[place] PA-C, URL Within 3 months [address] [place] [address] Additional Instructions: Patient Education Kidney Stones, Anml-ka-Vcjm Problem List/Past Medical History Ongoing Anticoagulated Feeling of incomplete b (more content not included)... Normal [facility] Comment on above: Result Comment: Elec tronically Signed By: [place] M[place] PA-C\.br\Date and Time Signed: 04/10/24 16:09 EDT Glucose Glucometer (BldC) [M ass/Vol]on 03-06-2024 Glucose [Mass/Vol] 79 mg/dL [facility] EGD/EUS 03/06/24 @1130, PTH, Dr. Cesar, PAT ph: 02/29/24 @1000, #[id number], Clinic appt 02/27/24 w/ Sherita. Normal [facility] [id number] 2023 ALPHA-1 ANTITRYPSIN 145 mg/dL Normal 90-200 [facility] Comment on above: Result Comment: To c onvert to umol/L, multiply mg/dL by 0.185 Performed By: [facility] [address] [place] [address] Workforce Planning Analyst: Sarwat Gorman MD, PhD CLIA Number: [id number] Performed By: #### L [id number] #### [facility] (BEAKER) [address] [place] [address] ANAon 02-27-2024 CHAY TITER <1:40 Normal <=1:40 [facility] Comment on above: Result Comment: Test performed using BRIJESH IFA CHAY Hep-2 Test, a pre-standardized assay designed for the qualitative and semi-quantitative detection of antinuclear antibodies. Performed By: #### L [id number] #### [facility] ([facility]AKER) [address] [place] [address] ANTI-SMOOTH MUSCLE ANTIBODY TITERon 02-27-2024 SMOOTH MUSCLE AB, IGG TITER <1:20 Normal <1:20 [facility] Comment on above: Result Comment: INTE RPRETIVE INFORMATION: Smooth Muscle Ab, IgG Titer Less than 1:20 ........ Negative - No antibody detected. 1:20 - 1:80 .......... Weak Positive - Suggest repeat in two to three weeks with fresh specimen. 1:160 or greater ...... Positive - Suggestive of autoimmune hepatitis or chronic active hepatitis. Performed By: [facility] [address] [place] [id number] Workforce Planning Analyst: Sarwat Gorman MD, PhD CLIA Number: [id number] Performed By: #### L [id number] #### [facility] ([facility]) [address] [place] [address] CBC WITH AUTO DIFFERENTIALon 02-27-2024 Basophils (Bld) [#/Vol] 0.01 10*3/uL Normal 0.00-0.20 [facility] Comment on above: Performed By: #### L [id number] #### [facility] ([facility]) [address] [facility] [place] [address] Basophils/100 WBC (Bld) 0.2 % Normal 0.0-1.0 [facility] Comment on above: Performed By: #### L [id number] #### [facility] ([facility]) [address] [facility] [place] [address] Eosinophils (Bld) [#/Vol] 0.17 10*3/uL Normal 0.00-0.50 [facility] Comment on above: Performed By: #### L [id number] #### [facility] ([facility]) [address] [facility] [place] [address] Eosinophils/100 WBC (Bld) 3.2 % Normal 0.0-6.0 [facility] Comment on above: Performed By: #### L [id number] #### [facility] ([facility]) [address] [facility] [place] [address] Erythrocyte distribution width (RBC) [Ratio] 12.6 % Normal 11.5-15.0 [facility] Comment on above: Performed By: #### L [id number] #### [facility] ([facility]) [address] [place] [address] ERYTHROCYTE MEAN CORPUSCULAR HEMOGLOBIN CONCENTRATION (G/DL) BY AUTOMATED 33.6 g/dL Normal 32.0-35.0 [facility] Comment on above: Performed By: #### L [id number] #### [facility] ([facility]) [address] [facility] [place] [address] Hematocrit (Bld) [Volume fraction] 44.0 % Normal 36.0-48.0 [facility] Comment on above: Performed By: #### L [id number] #### [facility] ([facility]) [address] [place] [address] Hemoglobin (Bld) [Mass/Vol] 14.8 g/dL Normal 12.0-15.0 [facility] Comment on above: Performed By: #### L [id number] #### [facility] ([facility]) [address] [place] [address] Immature granulocytes (Bld) [#/Vol] 0.01 10*3/uL Normal 0.00-0.20 [facility] Comment on above: Performed By: #### L [id number] #### [facility] ([facility]) [address] [place] [address] Immature granulocytes/100 WBC (Bld) 0.2 % Normal 0.0-1.0 [facility] Comment on above: Performed By: #### L [id number] #### [facility] ([facility]) [address] [place] [address] Lymphocytes (Bld) [#/Vol] 1.19 10*3/uL Low 1.20-4.00 [facility] Comment on above: Performed By: #### L [id number] #### [facility] ([facility]) [address] [place] [address] Lymphocytes/100 WBC (Bld) 22.3 % Normal 20.0-45.0 [facility] Comment on above: Performed By: #### L [id number] #### [facility] ([facility]) [address] [place] [address] MCH (RBC) [Entitic mass] 30.2 pg Normal 27.0-33.0 [facility] Comment on above: Performed By: #### L [id number] #### [facility] ([facility]) [address] [place] [address] MCV (RBC) [Entitic vol] 89.8 fL Normal 82.0-98.0 [facility] Comment on above: Performed By: #### L [id number] #### [facility] ([facility]) [address] [place] [address] Monocytes (Bld) [#/Vol] 0.53 10*3/uL Normal 0.10-1.00 [facility] Comment on above: Performed By: #### L [id number] #### [facility] ([facility]) [address] [place] [address] Monocytes/100 WBC (Bld) 9.9 % Normal 5.0-12.0 [facility] Comment on above: Performed By: #### L [id number] #### [facility] ([facility]) [address] [place] [address] Neutrophils (Bld) [#/Vol] 3.42 10*3/uL Normal 1.60-7.60 [facility] Comment on above: Performed By: #### L [id number] #### [facility] ([facility]) [address] [place] [address] Neutrophils/100 WBC (Bld) 64.2 % Normal 40.0-72.0 [facility] Comment on above: Performed By: #### L [id number] #### [facility] ([facility]) [address] [place] [address] NRBC (PER 100 WBCS) BY AUTOMATED COUNT 0.0 % Normal 0 [facility] Comment on above: Performed By: #### L [id number] #### [facility] ([facility]) [address] [place] [address] PLATELETS (10*3/UL) IN BLOOD AUTOMATED COUNT 198 10*3/uL Normal 150-400 [facility] Comment on above: Performed By: #### L [id number] #### [facility] ([facility]) [address] [place] [address] RBC (Bld) [#/Vol] 4.90 10*6/uL Normal 3.80-5.00 [facility] Comment on above: Performed By: #### L [id number] #### [facility] ([facility]) [address] [place] [address] WBC (Bld) [#/Vol] 5.33 10*3/uL Normal 4.00-10.60 [facility] Comment on above: Performed By: #### L [id number] #### [facility] ([facility]) [address] [place] [address] COMPREHENSIVE METABOLIC PANE Curtis 02-27-2024 Albumin [Mass/Vol] 4.4 g/dL Normal 3.5-5.7 [facility] Comment on above: Performed By: #### L [id number] #### [facility] ([facility]) [address] [place] [address] ALP [Catalytic activity/Vol] 84 U/L Normal 34-104 [facility] Comment on above: Performed By: #### L [id number] #### [facility] ([facility]) [address] [place] [address] ALT [Catalytic activity/Vol] 43 U/L Normal 7-52 [facility] Comment on above: Performed By: #### L [id number] #### [facility] ([facility]) [address] [place] [address] Anion gap [Moles/Vol] 11 mmol/L Normal 7-20 [facility] Comment on above: Performed By: #### L [id number] #### [facility] ([facility]) [address] [place] [address] AST [Catalytic activity/Vol] 33 U/L Normal 13-39 [facility] Comment on above: Performed By: #### L [id number] #### [facility] ([facility]) [address] [place] [address] Bilirubin [Mass/Vol] 0.4 mg/dL Normal 0.3-1.0 [facility] Comment on above: Performed By: #### L [id number] #### [facility] ([facility]) [address] [place] [address] Calcium [Mass/Vol] 9.9 mg/dL Normal 8.6-10.3 [facility] Comment on above: Performed By: #### L [id number] #### [facility] ([facility]) [address] [place] [address] Chloride [Moles/Vol] 102 mmol/L Normal 98-107 [facility] Comment on above: Performed By: #### L [id number] #### [facility] ([facility]) [address] [place] [address] CO2 [Moles/Vol] 29 mmol/L Normal 21-31 [facility] Comment on above: Performed By: #### L [id number] #### [facility] ([facility]) [address] [place] [address] Creatinine [Mass/Vol] 0.62 mg/dL Normal 0.60-1.20 [facility] Comment on above: Performed By: #### L [id number] #### [facility] ([facility]) [address] [place] [address] GLOMERULAR FILTRATION RATE ML/MIN/1.73 SQ M.PREDICTED 102.5 mL/min/1.73m*2 Normal >60.0 [facility] Comment on above: Result Comment: [facility]???s estimated glomerular filtration rate (eGFR) will [...] L [id number] #### [facility] ([facility]) [address] [place] [address] Glucose [Mass/Vol] 90 mg/dL Normal 70-100 [facility] Comment on above: Performed By: #### L [id number] #### [facility] ([facility]) [address] [place] [address] Potassium [Moles/Vol] 4.2 mmol/L Normal 3.5-5.1 [facility] Comment on above: Performed By: #### L [id number] #### [facility] ([facility]) [address] [place] [address] Protein [Mass/Vol] 6.9 g/dL Normal 6.0-8.3 [facility] Comment on above: Performed By: #### L [id number] #### [facility] ([facility]) [address] [place] [address] Sodium [Moles/Vol] 138 mmol/L Normal 136-145 [facility] Comment on above: Performed By: #### L [id number] #### [facility] ([facility]) [address] [place] [address] Urea nitrogen [Mass/Vol] 27 mg/dL High 7-25 [facility] Comment on above: Performed By: #### L [id number] #### [facility] ([facility]) [address] [place] [address] UREA NITROGEN/CREATININE (MASS RATIO) IN SER/PLAS 43.5 Normal [facility] Comment on above: Performed By: #### L [id number] #### [facility] ([facility]) [address] [place] [address] COPPER, SERUMon 02-27-2024 COPPER 125.0 ug/dL Normal 80.0-155.0 [facility] Comment on above: Result Comment: INTE [...] developed and its performance characteristics determined by [facility]. It has not been cleared or approved by the [place] Food and Drug Administration. This test was performed in a CLIA certified laboratory and is intended for clinical purposes. Performed By: [facility] [address] [place] [id number] Workforce Planning Analyst: Sarwat Gorman MD, PhD CLIA Number: [id number] Performed By: #### L [id number] #### [facility] ([facility]) [address] [place] [address] FERRITINon 02-27-2024 FERRITIN (NG/ML) IN SER/PLAS 32.0 ng/mL Normal 11.0-307.0 [facility] Comment on above: Performed By: #### L [id number] #### [facility] ([facility]) [address] [place] [address] FOLATEon 02-27-2024 FOLATE (NG/ML) IN SER/PLAS 39.0 ng/mL Normal 6.6-1000 [facility] Comment on above: Performed By: #### L [id number] #### [facility] ([facility]) [address] [place] [address] HEMOGLOBIN A1Con 02-27-2024 Glucose [Mass/Vol] 100 mg/dL Normal [facility] Comment on above: Performed By: #### L [id number] #### [facility] ([facility]) [address] [place] [address] HbA1c (Bld) [Mass fraction] 5.1 % Normal 4.0-6.0 [facility] Comment on above: Performed By: #### L [id number] #### [facility] ([facility]) [address] [place] [address] HEPATITIS PANEL, ACUTEon HEPATITIS A VIRUS IGM AB PRESENCE IN SER/PLAS Non-Reactive Normal Nonreactive [facility] Comment on above: Performed By: #### L [id number] #### [facility] ([facility]) [address] [place] [address] HEPATITIS B VIRUS CORE AB (PRESENCE) IN SER/PLAS BY IMM Non-Reactive Normal Nonreactive [facility] Comment on above: Performed By: #### L [id number] #### [facility] ([facility]) [address] [place] [address] HEPATITIS B VIRUS SURFACE AG PRESENCE IN SERUM Non-Reactive Normal Nonreactive [facility] Comment on above: Performed By: #### L [id number] #### [facility] ([facility]) [address] [place] [address] HEPATITIS C VIRUS AB PRESENCE IN SERUM Non-Reactive Normal Nonreactive [facility] Comment on above: Performed By: #### L [id number] #### [facility] ([facility]) [address] [place] [address] IGAon 02-27-2024 Magnesium [Mass/Vol] 108 mg/dL Normal 60-413 [facility] Comment on above: Performed By: #### L [id number] #### [facility] ([facility]) [address] [place] [address] IGG 1, 2, 3, AND 4on 024 IgG subclass 1 (S) [Mass/Vol] 293 mg/dL Normal 240-1118 [facility] Comment on above: Result Comment: REFE RENCE INTERVAL: Immunoglobulin G Subclass 1 The total IgG (mg/dL) can be derived from the sum of the subclass IgG1, IgG2, IgG3, and IgG4 values. However, a confirmatory and more precise total IgG is available by the turbidimetric method of quantitation for total IgG. Refer to test Immunoglobulin G, Serum ([id number]). Access complete set of age- and/or gender-specific reference intervals for this test in the [facility] (Scandlines). Performed By: #### L [id number] #### [facility] ([facility]) [address] [place] [address] IgG subclass 2 (S) [Mass/Vol] 160 mg/dL Normal 124-549 [facility] Comment on above: Result Comment: REFE RENCE INTERVAL: Immunoglobulin G Subclass 2 Access complete set of age- and/or gender-specific reference intervals for this test in the [facility] (Scandlines). Performed By: #### L [id number] #### [facility] ([facility]) [address] [place] [address] IgG subclass 3 (S) [Mass/Vol] 32 mg/dL Normal 21-134 [facility] Comment on above: Result Comment: REFE RENCE INTERVAL: Immunoglobulin G Subclass 3 Access complete set of age- and/or gender-specific reference intervals for this test in the [facility] (Scandlines). Performed By: #### L [id number] #### [facility] ([facility]) [address] [place] [address] IgG subclass 4 (S) [Mass/Vol] 21 mg/dL Normal 1-123 [facility] Comment on above: Result Comment: REFE RENCE INTERVAL: Immunoglobulin G Subclass 4 Access complete set of age- and/or gender-specific reference intervals for this test in the [facility] (Scandlines). Performed By: [facility] [address] [place] [address] Workforce Planning Analyst: Sarwat Gorman MD, PhD CLIA Number: [id number] Performed By: #### L [id number] #### [facility] ([facility]) [address] [place] [address] IRON AND TIBCon 02-27-2024 IRON (UG/DL) IN SER/PLAS 56 ug/dL Normal 50-212 [facility] Comment on above: Performed By: #### L [id number] #### [facility] ([facility]) [address] [place] [address] IRON BINDING CAPACITY (UG/DL) IN SER/PLAS 364 ug/dL Normal 250-450 [facility] Comment on above: Performed By: #### L [id number] #### [facility] ([facility]) [address] [place] [address] IRON BINDING CAPACITY.UNSATURATED (UG/DL) IN SER/PLAS 308.0 ug/dL Normal 155.0-355.0 [facility] Comment on above: Performed By: #### L [id number] #### [facility] ([facility]) [address] [facility] [place] [address] IRON SATURATION (%) IN SER/PLAS 15 % Low 20-50 [facility] Comment on above: Performed By: #### L [id number] #### [facility] ([facility]) [address] [facility] [place] [address] LIPID PANELon 02-27-2024 CHOL/HDL 2.9 mg/dL Normal [facility] Comment on above: Performed By: #### L [id number] #### [facility] ([facility]) [address] [facility] [place] [address] Cholesterol [Mass/Vol] 111 mg/dL Low 120-200 [facility] Comment on above: Performed By: #### L [id number] #### [facility] ([facility]) [address] [facility] [place] [address] Magnesium [Mass/Vol] 144 mg/dL Normal 40-149 [facility] Comment on above: Result Comment: TRIG LYCERIDE REFERENCE RANGE: 20 YEARS AND OLDER CARDIOVASCULAR RISK LESS THAN 150 mg/dL LOW RISK 150 TO 199 mg/dL BORDERLINE RISK 200 mg/dL AND GREATER HIGH RISK Performed By: #### L [id number] #### [facility] ([facility]) [address] [facility] [place] [address] Magnesium [Mass/Vol] 44 mg/dL Normal 0-160 [facility] Comment on above: Performed By: #### L [id number] #### [facility] ([facility]) [address] [facility] [place] [address] Magnesium [Mass/Vol] 38 mg/dL Normal 23-92 [facility] Comment on above: Performed By: #### L [id number] #### [facility] ([facility]) [address] [place] [address] NON HDL CHOL. (LDL+VLDL) 73 Normal [facility] Comment on above: Performed By: #### L [id number] #### [facility] ([facility]) [address] [place] [address] TOTAL VLDL-C 29 mg/dL Normal 0-40 [facility] Comment on above: Performed By: #### L [id number] #### [facility] ([facility]) [address] [facility] [place] [address] LIVER FIBROSIS CHRONIC VIRAL HEPATITISon 02-27-2024 [id number] , FIBROMETER 328 mg/dL High 131-293 [facility] Comment on above: Performed By: #### L [id number] #### [facility] ([facility]) [address] [place] [address] ALT [Catalytic activity/Vol] 57 U/L High 5-40 [facility] Comment on above: Performed By: #### L [id number] #### [facility] ([facility]) [address] [facility] [place] [address] Amylase [Catalytic activity/Vol] 18 U/L Normal 7-33 [facility] Comment on above: Performed By: #### L [id number] #### [facility] ([facility]) [address] [facility] [place] [address] AST [Catalytic activity/Vol] 41 U/L High 9-40 [facility] Comment on above: Performed By: #### L [id number] #### [facility] ([facility]) [address] [facility] [place] [address] CIRRHOMETER PATIENT SCORE 0.08 Normal [facility] Comment on above: Performed By: #### L [id number] #### [facility] ([facility]) [address] [facility] [place] [address] EER FIBROMETER REPORT See Note [facility] Comment on above: Result Comment: Auth orized individuals can access the [facility] Enhanced Report using the following link: [email or web address] Performed By: #### L [id number] #### [facility] ([facility]) [address] [facility] [place] [address] FIBROMETER INTERPRETATION See Report Normal [facility] Comment on above: Result Comment: [17] [13] INTERPRETIVE INFORMATION: Fibrometer Interpretation Calculations for the final report are based on accurate data for age, gender, and platelet count. If any of this information needs to be corrected, please contact [facility] to request a recalculation. Client [...] developed and its performance characteristics determined by [facility]. It has not been cleared or approved by the [place] Food and Drug Administration. This test was performed in a CLIA certified laboratory and is intended for clinical purposes. Performed By: [facility] [address] [place] [address] Workforce Planning Analyst: Sarwat Gorman MD, PhD CLIA Number: [id number] Performed By: #### L [id number] #### [facility] ([facility]) [address] [place] [address] FIBROMETER PATIENT SCORE 0.62 Normal [facility] Comment on above: Performed By: #### L [id number] #### [facility] ([facility]) [address] [place] [address] FIBROMETER PLATELET COUNT 198 k/uL Normal [facility] Comment on above: Performed By: #### L [id number] #### [facility] ([facility]) [address] [place] [address] FIBROMETER PROTHROMBIN INDEX 81 % Low 90-120 [facility] Comment on above: Performed By: #### L [id number] #### [facility] ([facility]) [address] [place] [address] FIBROSIS METAVIR CLASSIFICATION F2[F1-F3] Normal [facility] Comment on above: Result Comment: INTE [...] L [id number] #### [facility] ([facility]) [address] [place] [address] INFLAMETER METAVIR CLASSIFICATION A1/A2 [facility] Comment on above: Result Comment: INTE RPRETIVE INFORMATION: InflaMeter Metavir Classification InflaMeter (activity score) comments A0/A1 Equal probability between A0 and A1 A1/A2 Equal probability between A1 and A2 A2/A3 Equal probability between A2 and A3 Performed By: #### L [id number] #### [facility] ([facility]) [address] [place] [address] INFLAMETER PATIENT SCORE 0.62 Normal [facility] Comment on above: Performed By: #### L [id number] #### [facility] ([facility]) [address] [place] [address] Urea nitrogen [Mass/Vol] 28 mg/dL High 7-20 [facility] Comment on above: Performed By: #### L [id number] #### [facility] ([facility]) [address] [facility] [place] [place] [address] Labon 02-27-2024 Lab [id number] Diana Saleem tte 1965 Provider Department Center 02/27/2024 2244-[facility] RESOURCE DRAW Medical Pavi Family History Problem Relation Age of Onset Hyperlipidemia Mother Hyperlipidemia Father Hyperlipidemia Brother Heart attack Brother Family Status - Relation Status Age at Mother Father Brother Brother Normal [facility] MITOCHONDRIAL ANTIBODIES, M2 on 02-27-2024 MITOCHONDRIAL M2 ANTIBODY 7.2 Units Normal 0.0-24.9 [facility] Comment on above: Result Comment: REFE [...] does not rule out PBC. Performed By: [facility] [address] [place] [address] Workforce Planning Analyst: Sarwat Gorman MD, PhD CLIA Number: [id number] Performed By: #### L [id number] #### [facility] ([facility]) [address] [facility] [place] [address] Office Visiton 02-27-2024 Follow-up visit [id number] Diana Saleem tte 1965 Provider Department Center 02/27/2024 Francisco-DANIELLE [facility] Family History Problem Relation Age of Onset Hyperlipidemia Mother Hyperlipidemia Father Hyperlipidemia Brother Heart attack Brother Family Status - Relation Status Age at Mother Father Brother Brother Level of Service:84022 AR OFFICE/OUTPATIENT NEW MODERATE MDM 45 MINUTES (GC) Reason for Visit and Comments: New Patient [632] Pancreatitis [692245] Normal [facility] PROTIME-INRon 02-27-2024 INR IN PPP BY COAGULATION ASSAY 1.08 Normal 0.90-1.10 [facility] Comment on above: Result Comment: [facility] P RECOMMENDED INR FOR WARFARIN THERAPY CONDITION [...] #### [facility] ([facility]) [address] [place] [address] PROTHROMBIN TIME (PT) IN PPP BY COAGULATION ASSAY 14.0 Seconds Normal 12.3-14.8 [facility] Comment on above: Performed By: #### L [id number] #### [facility] ([facility]) [address] [place] [address] TISSUE TRANSGLUTAMINASE, IGA on 02-27-2024 TISSUE TRANSGLUTAMINASE, IGA <1.02 Normal 0.00-4.99 [facility] Comment on above: Result Comment: INTE [...] indicate a response to therapy. Performed By: [facility] [address] [place] [address] Workforce Planning Analyst: Sarwat Gorman MD, PhD CLIA Number: [id number] Performed By: #### L [id number] #### [facility] ([facility]) [address] [place] [address] TSH3 REFLEX TO FT4on 024 THYROTROPIN (MIU/L) IN SER/PLAS BY DETECTION LIMIT <= 0.05 MIU/L 2.02 mIU/L Normal 0.34-5.60 [facility] Comment on above: Performed By: #### L [id number] #### [facility] ([facility]) [address] [place] [address] VITAMIN B12on 02-27-2024 Cobalamin (Vitamin B12) [Mass/Vol] 1862 pg/mL High 180-914 [facility] Comment on above: Result Comment: REFE RENCE RANGES: 180-914 pg/mL Normal 145-179 pg/mL Indeterminate <145 pg/mL Deficient Performed By: #### L [id number] #### [facility] ([facility]) [address] [place] [address] VITAMIN D 25 HYDROXYon 02-26 CALCIDIOL (25 [place] VITAMIN D3) (NG/ML) IN SER/PLAS 62.1 ng/mL Normal 30.0-80.0 [facility] Comment on above: Result Comment: >80. 0 Toxicity possible Performed By: #### L [id number] #### [facility] ([facility]) [address] [place] [address] Orders Onlyon 02-12-2024 Orders Only [id number] Diana Saleem ttrene 1965 F Date Provider Department Center 02/12/2024 [id number], HISTORICAL MP GI [facility] No family history on file Normal [facility] Lab Reportson 01-23-2024 Lab Reports [id number]#1.00TIF F Normal [facility] Lab Reports [id number]#1.00TIF F Normal [facility] Lab Reportson 01-22-2024 Lab Reports [id number]#1.00TIF F Normal [facility] Lab Reports [id number]#1.00TIF F Normal [facility] Lab Reports [id number]#1.00TIF F [facility] RAD - MISCon 01-22-2024 RAD - MISC [id number]#1.00TIF F Normal [facility] Surgical Pathology Reporton 06-18-2023 Surgical Pathology Report (NOTE) Path Number: [id number] -- Diagnosis -- ENDOMETRIAL CURETTINGS: -BENIGN ENDOMETRIAL [...] Microscopic Description Microscopic examination performed. Processing Lab: [facility] [address] [place] [address] Interpretation Performed at [facility] [address] [place] [address] SURGICAL PATHOLOGY CONSULTATION Patient Name: JOSE ALBERTO SALEEM [facility] Rec: [id number] [facility] ANATOMIC PATHOLOG[facility] [address] [place], [place] [address] Normal [facility] US NON OB TRANSVAGINALon US NON [...] Gaby Tello DO 06/05/23 Final result Normal [facility] Ceruloplasminon 12-12-2022 Ceruloplasmin 30.6 mg/dL 19.0-39.0 mg/dL [facility] Ferritinon 12-12-2022 Ferritin [Mass/Vol] 43.2009122 ng/mL Normal 11.0 -306.8 ng/mL [facility] Hepatitis A Antibody Totalon 12-12-2022 Hepatitis A Antibody Total Negative . [facility] Hepatitis B Surface Antibody on 12-12-2022 Hepatitis B Surface Antibody Non-Reactive Non Reactive [facility] Immunoglobulin Javi 3 Immunoglobulin G 823 mg/dL 586-1602 mg/dL [facility] Liver-Kidney Microsomal Abon 12-12-2022 Liver-Kidney Microsomal Ab 1.1 0.0-20.0 [facility] Mitochondrial (M2) Antibodyo n 12-12-2022 Mitochondrial (M2) Antibody <20.0 0.0-20.0 [facility] Smooth Muscle Antibodyon Smooth Muscle Antibody 5 0-19 [facility] Other MR MRCPon 11-10-2022 MR MRCP [facility] Other MR MRCP [facility] Other MR MRCP [address] [facility] [address] [facility] Other MR MRCP MRI Report [facility] Other MR MRCP Signed [facility] Other MR MRCP Patient: Danika Saleem MR#: [id number] [facility] Other MR MRCP 571 [facility] Other MR MRCP : 1965 Acct:[id number] [facility] Other MR MRCP Age/Sex: 57 / F ADM Date: 11/10/22 [facility] Other MRCP Loc: MR Room: Type: [facility] Other MR MRCP Attending Dr: Evert salinas MD [facility] Other MR MRCP Copies to: Evert daigle MD [facility] Other MRCP Ordering Provider: Marleny Bruno MD [facility] Other MR MRCP Date of Service: 11/10/22 [facility] Other MR MRCP MR/MR MRCP: Abdominal pain;Common bile duct dilatation;Elevated liver en [facility] Other MR MRCP MRCP [facility] Other MR MRCP CLINICAL DATA: [place] hayley lipase. Abnormal outside abdominal CT [facility] Other MR MRCP COMPARISON: CT abdom en 10/16/2022 [facility] Other MR MRCP Multiecho imaging of the abdomen was performed along with radial imaging of the biliary tree. [facility] Other MR MRCP The gallbladder surgically absent. There is no significant intrahepatic biliary dilatation. The [facility] Other MR MRCP common duct is sligh tly prominent measuring up to 6 mm. It tapers toward the ampulla. No in [facility] Other MR MRCP traluminal filling defects are identified to suggest choledocholithiasis. The pancreatic duct is [facility] Other MR MRCP also borderline prominent measuring 2 - 3 mm. No intrahepatic masses are identified. No pancreatic [facility] Other MR MRCP abnormalities are no hayley. The spleen and adrenal glands are within normal limits. There is no [facility] Other MR MRCP hydronephrosis. Ther e are right renal cysts. There is no aortic aneurysm. No adenopathy or [facility] Other MR MRCP ascites is seen. The re is no dilated bowel within the avitl-kf-glof. [facility] Other MR MRCP M R/MR MRCP [facility] Other MR MRCP IMPRESSION: [facility] Other MR MRCP SLIGHTLY PROMINENT COMMON DUCT, WITHOUT CHOLEDOCHOLITHIASIS. THIS MAY RELATE TO PREVIOUS [facility] Other MR MRCP CHOLECYSTECTOMY. [facility] Other MR MRCP RIGHT RENAL CYSTS. [facility] Other MR MRCP NO OTHER SIGNIFICANT MRI FINDINGS. [facility] Other MR MRCP Impression dictated by: Thelma Wick M.D.11/10/2022 7:00 PM [facility] Other MR MRCP Dictation Location: [place] [address] [facility] Other MR MRCP Transcribed By: PWS 11/10/221899 [facility] MR MRCP Dictated By: Thelma Wick MD 11/10/221849 [facility] Other MR MRCP Signed By: [facility] Other MR MRCP 11/10/221899 [facility] Other Albumin [Mass/volume] in Ser um or PlasmaOrdered By: Evert Bruno on 11-01-2022 Albumin [Mass/Vol] 4.0 g/dL 3.2-5.5 [facility] Direct bilirubin measurement Ordered By: Evert Bruno on 11-01-2022 Bilirubin.direct [Mass/Vol] 0.1 mg/dL 0.0-0.4 [facility] Globulin Calc (S) [Mass/Vol] Ordered By: Evert Bruno on 11-01-2022 Globulin (S) [Mass/Vol] 2.5 g/dL [facility] Hepatic Panelon 11-01-2022 Albumin [Mass/Vol] 4.725642 g/dL Normal 3.2-5.5 g/dL N [facility] Other ALT [Catalytic activity/Vol] 94 U/L High 10-60 U/L [facility] Bilirubin [Mass/Vol] 0.3245892 mg/dL Normal 0.3- 1.2 mg/dL [facility] Bilirubin.indirect [Mass/Vol] 0.9217300 mg/dL Normal 0.0-0.4 mg/dL [facility] Protein [Mass/Vol] 6.648418 g/dL Normal 6.1-7.9 g/dL N [facility] Other Hepatic Panel 0.5 mg/dL [facility] Hepatic Panel 2.5 g/dL [facility] Protein [Mass/volume] in Ser um or PlasmaOrdered By: Imsara Bruno on 11-01-2022 Protein [Mass/Vol] 6.5 g/dL 6.1-7.9 [facility] Serum or plasma alanine li otransferase measurement without P-5'-P (enzymatic activiOrdered By: Imad Asaad on 11-01-2022 ALT No additional P-5'-P [Catalytic activity/Vol] 94 U/L 10-60 [facility] Serum or plasma albumin/glob ulin mass ratioOrdered By: [employer] Asaad on 11-01-2022 Albumin/Globulin [Mass ratio] 1.6 {ratio} [facility] Serum or plasma alkaline monster sphatase measurement (enzymatic activity/volume)Ordered By: [employer] Asaad on 11-01-2022 ALP [Catalytic activity/Vol] 93 U/L 32-92 [facility] Serum or plasma aspartate am inotransferase measurement (enzymatic activity/volume)Ordered By: [employer] Asaad on 11-01-2022 AST [Catalytic activity/Vol] 66 U/L 10-42 [facility] Serum or plasma non-glucuron idated bilirubin measurement (mass/volume)Ordered By: [employer] on 11-01-2022 Bilirubin.indirect [Mass/Vol] 0.5 mg/dL [facility] Serum or plasma total biliru bin measurement (mass/volume)Ordered By: [employer] Asaad on 11-01-2022 Bilirubin [Mass/Vol] 0.6 mg/dL 0.3-1.[address] [facility] [address] ABDOMEN WO/W CONon 2022 CT ABDOMEN WO/W CON EXAMINATION: CT ABDO MEN WO/W CON HISTORY: Idiopathic acute pancreatitis , [...] JAE WILSON Date: 2022-10-17 08:23 Normal [facility] AMMONIAon 10-09-2022 Ammonia (P) [Moles/Vol] 10 umol/L Critically low 11-32 [facility] Comment on above: Performed By: #### A MY #### [facility] [address] [place] [address] Dr. Ayden Cam AMYLASEon 10-09-2022 Amylase [Catalytic activity/Vol] 144 U/L Critically high 25-115 [facility] Comment on above: Performed By: #### L IPA #### [facility] [address] [place] [address] Dr. Ayden Cam CBC AUTO DIFFon 10-09-2022 BASO # 0.0 103/ul Normal 0.0-0.1 [facility] Comment on above: Performed By: #### C BC #### [facility] [address] [place] [address] Dr. Ayden Cam Basophils/100 WBC (Bld) 0.2 % Normal 0.2-2.0 [facility] Comment on above: Performed By: #### C BC #### [facility] [address] [place] [address] Dr. Ayden Cam EO # 0.2 103/ul Normal 0.0-0.7 [facility] Comment on above: Performed By: #### C BC #### [facility] [address] [place] [address] Dr. Ayden Cam Eosinophils/100 WBC (Bld) 3.3 % Normal 0.9-7.0 [facility] Comment on above: Performed By: #### C BC #### [facility] [address] [place] [address] Dr. Ayden Cam Erythrocyte distribution width (RBC) [Ratio] 12.1 % Normal 11.0-15.0 [facility] Comment on above: Performed By: #### C BC #### [facility] [address] [place] [address] Dr. Ayden Cam Hematocrit (Bld) [Volume fraction] 40.0 % Normal 36.0-48.0 [facility] Comment on above: Performed By: #### C BC #### [facility] [address] [place] [address] Dr. Ayden Cam Hemoglobin (Bld) [Mass/Vol] 14.2 g/dL Normal 12.0-16.0 [facility] Comment on above: Performed By: #### C BC #### [facility] [address] [place] [address] Dr. Ayden Cam IG # 0.01 10e3/ul Normal 0.00-0.03 [facility] Comment on above: Performed By: #### C BC #### [facility] [address] [place] [address] Dr. Ayden Cam IG % 0.2 % Normal 0.0-0.5 [facility] Comment on above: Performed By: #### C BC #### [facility] [address] [place] [address] Dr. Ayden Cam LYMPH # 1.5 103/ul Normal 1.2-3.8 [facility] Comment on above: Performed By: #### C BC #### [facility] [address] [place] [address] Dr. Ayden Cam Lymphocytes/100 WBC (Bld) 24.2 % Normal 20.5-60.0 [facility] Comment on above: Performed By: #### C BC #### [facility] [address] [place] [address] Dr. Ayden Cam MANUAL DIFF REQ NO Normal [facility] Comment on above: Performed By: #### C BC #### [facility] [address] [place] [address] Dr. Ayden Cam MCH (RBC) [Entitic mass] 30.0 pg Normal 26.7-34.0 [facility] Comment on above: Performed By: #### C BC #### [facility] [address] [place] [address] Dr. Ayden Cam MCHC (RBC) [Mass/Vol] 35.5 g/dL Critically high 29.9-35.2 [facility] Comment on above: Performed By: #### C BC #### [facility] [address] [place] [address] Dr. Ayden Cam MCV (RBC) [Entitic vol] 84.4 fL Normal 81.0-99.0 [facility] Comment on above: Performed By: #### C BC #### [facility] [address] [place] [address] Dr. Ayden Cam MONO # 0.6 103/ul Normal 0.3-0.8 [facility] Comment on above: Performed By: #### C BC #### [facility] [address] [place] [address] Dr. Ayden Cam Monocytes/100 WBC (Bld) 10.3 % Normal 1.7-12.0 [facility] Comment on above: Performed By: #### C BC #### [facility] [address] [place] [address] Dr. Ayden Cam NEUT # 3.7 103/ul Normal 1.4-6.5 [facility] Comment on above: Performed By: #### C BC #### [facility] [address] [place] [address] Dr. Ayden Cam Neutrophils/100 WBC (Bld) 61.8 % Normal 43.0-75.0 [facility] Comment on above: Performed By: #### C BC #### [facility] [address] [place] [address] [address] Ayden Cam Platelet mean volume (Bld) [Entitic vol] 9.0 fL Critically low 9.5-13.5 [facility] Comment on above: Performed By: #### C BC #### [facility] [address] [place] [address] Dr. Ayden Cam PLT 191 103/ul Normal 150-450 [facility] Comment on above: Performed By: #### C BC #### [facility] [address] [place] [address] Dr. Ayden Cam RBC 4.74 106/ul Normal 4.20-5.40 [facility] Comment on above: Performed By: #### C BC #### [facility] [address] [place] [address] Dr. Ayden Cam WBC 6.0 103/ul Normal 4.0-11.0 [facility] Comment on above: Performed By: #### C BC #### [facility] [address] [place] [address] Dr. Ayden Cam LIPASEon 10-09-2022 Lipase [Catalytic activity/Vol] 168.0 U/L Normal 73.0-393.0 [facility] Comment on above: Performed By: #### L ACT #### [facility] [address] [place] [address] Dr. Ayden Cam PROF 14(COMP METB)on 023 Albumin [Mass/Vol] 3.6 g/dL Normal 3.4-5.0 [facility] Comment on above: Performed By: #### L IPA #### [facility] [address] [place] [address] Dr. Ayden Cam Albumin/Globulin [Mass ratio] 1.1 {ratio} Normal [facility] Comment on above: Performed By: #### L IPA #### [facility] [address] [place] [address] Dr. Ayden Cam ALP [Catalytic activity/Vol] 93 U/L Normal 46-116 [facility] Comment on above: Performed By: #### L IPA #### [facility] [address] [address] [address] Ayden Cam ALT [Catalytic activity/Vol] 52 U/L Normal 14-59 [facility] Comment on above: Performed By: #### L IPA #### [facility] [address] [address] [address] Ayden Cam Anion gap [Moles/Vol] 10.2 mmol/L Normal [facility] Comment on above: Performed By: #### L IPA #### [facility] [address] [address] [address] Ayden Cam AST [Catalytic activity/Vol] 33 U/L Normal 15-37 [facility] Comment on above: Performed By: #### L IPA #### [facility] [address] [address] [address] Ayden Cam Bilirubin [Mass/Vol] 0.3 mg/dL Normal 0.2-1.0 [facility] Comment on above: Performed By: #### L IPA #### [facility] [address] [address] [address] Ayden Cam Calcium [Mass/Vol] 9.4 mg/dL Normal 8.5-10.1 [facility] Comment on above: Performed By: #### L IPA #### [facility] [address] [address] [address] Ayden Cam Chloride [Moles/Vol] 99 mmol/L Normal 98-107 [facility] Comment on above: Performed By: #### L IPA #### [facility] [address] [address] [address] Ayden Cam CO2 [Moles/Vol] 33.7 mmol/L Critically high 21.0-32.0 [facility] Comment on above: Performed By: #### L IPA #### [facility] [address] [address] [address] Ayden Cam Creatinine [Mass/Vol] 0.62 mg/dL Normal 0.55-1.02 [facility] Comment on above: Performed By: #### L IPA #### [facility] [address] [address] [address] Ayden Cam EGFR-AF GAMBIAN >60 Normal >=60 [facility] Comment on above: Performed By: #### L IPA #### [facility] [address] [place] [address] Dr. Ayden Cam EGFR-NON AF GAMBIAN >60 Normal >=60 [facility] Comment on above: Performed By: #### L IPA #### [facility] [address] [address] [address] Ayden Cam Globulin (S) [Mass/Vol] 3.4 g/dL Normal [facility] Comment on above: Performed By: #### L IPA #### [facility] [address] [place] [address] Dr. Ayden Cam Glucose [Mass/Vol] 105 mg/dL Normal 74-106 [facility] Comment on above: Performed By: #### L IPA #### [facility] [address] [place] [address] Dr. Ayden Cam Potassium [Moles/Vol] 3.9 mmol/L Normal 3.5-5.1 [facility] Comment on above: Performed By: #### L IPA #### [facility] [address] [place] [address] Dr. Ayden Cam Protein [Mass/Vol] 7.0 g/dL Normal 6.4-8.2 [facility] Comment on above: Performed By: #### L IPA #### [facility] [address] [place] [address] Dr. Ayden Cam Sodium [Moles/Vol] 139 mmol/L Normal 136-145 [facility] Comment on above: Performed By: #### L IPA #### [facility] [address] [place] [address] Dr. Ayden Cam Urea nitrogen [Mass/Vol] 28.0 mg/dL Critically high 7.0-18.0 [facility] Comment on above: Performed By: #### L IPA #### [facility] [address] [place] [address] Dr. Ayden Cam Urea nitrogen/Creatinine [Mass ratio] 45.2 mg/mg Normal [facility] Comment on above: Performed By: #### L IPA #### [facility] [address] [place] [address] Dr. Ayden Cam AMMONIAon 10-06-2022 Ammonia (P) [Moles/Vol] 16 umol/L Normal 11-32 [facility] Comment on above: Performed By: #### A MM #### [facility] [address] [place] [address] Dr. Ayden Cam AMYLASEon 10-06-2022 Amylase [Catalytic activity/Vol] 189 U/L Critically high 25-115 [facility] Comment on above: Performed By: #### L IPA #### [facility] [address] [place] [address] Dr. Ayden Cam CBC AUTO DIFFon 10-06-2022 BASO # 0.0 103/ul Normal 0.0-0.1 [facility] Comment on above: Performed By: #### C BC #### [facility] [address] [place] [address] Dr. Ayden Cam Basophils/100 WBC (Bld) 0.2 % Normal 0.2-2.0 [facility] Comment on above: Performed By: #### C BC #### [facility] [address] [place] [address] Dr. Ayden Cam EO # 0.3 103/ul Normal 0.0-0.7 [facility] Comment on above: Performed By: #### C BC #### [facility] [address] [place] [address] Dr. Ayden Cam Eosinophils/100 WBC (Bld) 5.2 % Normal 0.9-7.0 [facility] Comment on above: Performed By: #### C BC #### [facility] [address] [place] [address] Dr. Ayden Cam Erythrocyte distribution width (RBC) [Ratio] 12.3 % Normal 11.0-15.0 [facility] Comment on above: Performed By: #### C BC #### [facility] [address] [place] [address] Dr. Ayden Cam Hematocrit (Bld) [Volume fraction] 36.9 % Normal 36.0-48.0 [facility] Comment on above: Performed By: #### C BC #### [facility] [address] [place] [address] Dr. Ayden Cam Hemoglobin (Bld) [Mass/Vol] 12.4 g/dL Normal 12.0-16.0 [facility] Comment on above: Performed By: #### C BC #### [facility] [address] [place] [address] Dr. Ayden Cam IG # 0.01 10e3/ul Normal 0.00-0.03 [facility] Comment on above: Performed By: #### C BC #### [facility] [address] [place] [address] Dr. Ayden Cam IG % 0.2 % Normal 0.0-0.5 [facility] Comment on above: Performed By: #### C BC #### [facility] [address] [place] [address] Dr. Ayden Cam LYMPH # 1.8 103/ul Normal 1.2-3.8 [facility] Comment on above: Performed By: #### C BC #### [facility] [address] [place] [address] Dr. Ayden Cam Lymphocytes/100 WBC (Bld) 31.3 % Normal 20.5-60.0 [facility] Comment on above: Performed By: #### C BC #### [facility] [address] [place] [address] Dr. Ayden Cam MANUAL DIFF REQ NO Normal [facility] Comment on above: Performed By: #### C BC #### [facility] [address] [place] [address] Dr. Ayden Cam MCH (RBC) [Entitic mass] 30.0 pg Normal 26.7-34.0 [facility] Comment on above: Performed By: #### C BC #### [facility] [address] [place] [address] Dr. Ayden Cam MCHC (RBC) [Mass/Vol] 33.6 g/dL Normal 29.9-35.2 [facility] Comment on above: Performed By: #### C BC #### [facility] [address] [address] [address] Ayden Cam MCV (RBC) [Entitic vol] 89.1 fL Normal 81.0-99.0 [facility] Comment on above: Performed By: #### C BC #### [facility] [address] [address] [address] Ayden Cam MONO # 0.6 103/ul Normal 0.3-0.8 [facility] Comment on above: Performed By: #### C BC #### [facility] [address] [place] [address] Dr. Ayden Cam Monocytes/100 WBC (Bld) 10.1 % Normal 1.7-12.0 [facility] Comment on above: Performed By: #### C BC #### [facility] [address] [place] [address] Dr. Ayden Cam NEUT # 3.1 103/ul Normal 1.4-6.5 [facility] Comment on above: Performed By: #### C BC #### [facility] [address] [place] [address] Dr. Ayden Cam Neutrophils/100 WBC (Bld) 53.0 % Normal 43.0-75.0 [facility] Comment on above: Performed By: #### C BC #### [facility] [address] [address] [address] Ayden Cam Platelet mean volume (Bld) [Entitic vol] 9.4 fL Critically low 9.5-13.5 [facility] Comment on above: Performed By: #### C BC #### [facility] [address] [place] [address] Dr. Ayden Cam PLT 153 103/ul Normal 150-450 [facility] Comment on above: Performed By: #### C BC #### [facility] [address] [place] [address] Dr. Ayden Cam RBC 4.14 106/ul Critically low 4.20-5.40 [facility] Comment on above: Performed By: #### C BC #### [facility] [address] [place] [address] Dr. Ayden Cam WBC 5.8 103/ul Normal 4.0-11.0 [facility] Comment on above: Performed By: #### C BC #### [facility] [address] [place] [address] Dr. Ayden Cam LIPASEon 10-06-2022 Lipase [Catalytic activity/Vol] 166.0 U/L Normal 73.0-393.0 [facility] Comment on above: Performed By: #### L IPA #### [facility] [address] [place] [address] Dr. Ayden Cam LIVER PROFILEon 10-06-2022 Albumin [Mass/Vol] 3.2 g/dL Critically low 3.4-5.0 [facility] Comment on above: Performed By: #### L IPA #### [facility] [address] [place] [address] Dr. Ayden Cam Albumin/Globulin [Mass ratio] 1.3 {ratio} Normal [facility] Comment on above: Performed By: #### L IPA #### [facility] [address] [place] [address] Dr. Ayden Cam ALP [Catalytic activity/Vol] 88 U/L Normal 46-116 [facility] Comment on above: Performed By: #### L IPA #### [facility] [address] [place] [address] Dr. Ayden Cam ALT [Catalytic activity/Vol] 66 U/L Critically high 14-59 [facility] Comment on above: Performed By: #### L IPA #### [facility] [address] [place] [address] Dr. Ayden Cam AST [Catalytic activity/Vol] 39 U/L Critically high 15-37 [facility] Comment on above: Performed By: #### L IPA #### [facility] [address] [place] [address] Dr. Ayden Cam BILI, CONJUGATED 0.1 mg/dL Normal 0.0-0.2 [facility] Comment on above: Performed By: #### L IPA #### [facility] [address] [place] [address] Dr. Ayden Cam Bilirubin [Mass/Vol] 0.4 mg/dL Normal 0.2-1.0 [facility] Comment on above: Performed By: #### L IPA #### [facility] [address] [place] [address] Dr. Ayden Cam Globulin (S) [Mass/Vol] 2.4 g/dL Normal [facility] Comment on above: Performed By: #### L IPA #### [facility] [address] [place] [address] Dr. Ayden Cam Protein [Mass/Vol] 5.6 g/dL Critically low 6.4-8.2 [facility] Comment on above: Performed By: #### L IPA #### [facility] [address] [place] [address] Dr. Ayden Cam PROF CHEM 8 (BAS METB)on Anion gap [Moles/Vol] 6.8 mmol/L Normal [facility] Comment on above: Performed By: #### L IPA #### [facility] [address] [place] [address] Dr. Ayden Cam Calcium [Mass/Vol] 8.6 mg/dL Normal 8.5-10.1 [facility] Comment on above: Performed By: #### L IPA #### [facility] [address] [place] [address] Dr. Ayden Cam Chloride [Moles/Vol] 102 mmol/L Normal 98-107 [facility] Comment on above: Performed By: #### L IPA #### [facility] [address] [place] [address] Dr. Ayden Cam CO2 [Moles/Vol] 32.6 mmol/L Critically high 21.0-32.0 [facility] Comment on above: Performed By: #### L IPA #### [facility] [address] [place] [address] Dr. Ayden Cam Creatinine [Mass/Vol] 0.61 mg/dL Normal 0.55-1.02 [facility] Comment on above: Performed By: #### L IPA #### [facility] [address] [address] [address] Ayden Cam EGFR-AF GAMBIAN >60 Normal >=60 [facility] Comment on above: Performed By: #### L IPA #### [facility] [address] [address] [address] Ayden Cam EGFR-NON AF GAMBIAN >60 Normal >=60 [facility] Comment on above: Performed By: #### L IPA #### [facility] [address] [address] [address] Ayden Cam Glucose [Mass/Vol] 91 mg/dL Normal 74-106 [facility] Comment on above: Performed By: #### L IPA #### [facility] [address] [address] [address] Ayden Cam Potassium [Moles/Vol] 3.4 mmol/L Critically low 3.5-5.1 [facility] Comment on above: Performed By: #### L IPA #### [facility] [address] [address] [address] Ayden Cam Sodium [Moles/Vol] 138 mmol/L Normal 136-145 [facility] Comment on above: Performed By: #### L IPA #### [facility] [address] [address] [address] Ayden Cam Urea nitrogen [Mass/Vol] 13.0 mg/dL Normal 7.0-18.0 [facility] Comment on above: Performed By: #### L IPA #### [facility] [address] [address] [address] Ayden Cam Urea nitrogen/Creatinine [Mass ratio] 21.3 mg/mg Normal [facility] Comment on above: Performed By: #### L IPA #### [facility] [address] [address] [address] Ayden Cam AMMONIAon 10-05-2022 Ammonia (P) [Moles/Vol] 10 umol/L Critically low 11-32 [facility] Comment on above: Performed By: #### A MM #### [facility] [address] [place] [address] Dr. Ayden Cam AMYLASEon 10-05-2022 Amylase [Catalytic activity/Vol] 109 U/L Normal 25-115 [facility] Comment on above: Performed By: #### A MY #### [facility] [address] [place] [address] Dr. Ayden Cam CBC AUTO DIFFon 10-05-2022 BASO # 0.0 103/ul Normal 0.0-0.1 [facility] Comment on above: Performed By: #### L IPA #### [facility] [address] [place] [address] Dr. Ayden Cam Basophils/100 WBC (Bld) 0.3 % Normal 0.2-2.0 [facility] Comment on above: Performed By: #### L IPA #### [facility] [address] [place] [address] Dr. Ayden Cam EO # 0.3 103/ul Normal 0.0-0.7 [facility] Comment on above: Performed By: #### L IPA #### [facility] [address] [place] [address] Dr. Ayden Cam Eosinophils/100 WBC (Bld) 4.3 % Normal 0.9-7.0 [facility] Comment on above: Performed By: #### L IPA #### [facility] [address] [place] [address] Dr. Ayden Cam Erythrocyte distribution width (RBC) [Ratio] 12.2 % Normal 11.0-15.0 [facility] Comment on above: Performed By: #### L IPA #### [facility] [address] [place] [address] Dr. Ayden Cam Hematocrit (Bld) [Volume fraction] 38.9 % Normal 36.0-48.0 [facility] Comment on above: Performed By: #### L IPA #### [facility] [address] [place] [address] Dr. Ayden Cam Hemoglobin (Bld) [Mass/Vol] 12.8 g/dL Normal 12.0-16.0 [facility] Comment on above: Performed By: #### L IPA #### [facility] [address] [place] [address] Dr. Ayden Cam IG # 0.01 10e3/ul Normal 0.00-0.03 [facility] Comment on above: Performed By: #### L IPA #### [facility] [address] [place] [address] Dr. Ayden Cam IG % 0.2 % Normal 0.0-0.5 [facility] Comment on above: Performed By: #### L IPA #### [facility] [address] [place] [address] Dr. Ayden Cam LYMPH # 1.9 103/ul Normal 1.2-3.8 [facility] Comment on above: Performed By: #### L IPA #### [facility] [address] [place] [address] Dr. Ayden Cam Lymphocytes/100 WBC (Bld) 31.4 % Normal 20.5-60.0 [facility] Comment on above: Performed By: #### L IPA #### [facility] [address] [place] [address] Dr. Ayden Cam MANUAL DIFF REQ NO Normal [facility] Comment on above: Performed By: #### L IPA #### [facility] [address] [place] [address] Dr. Ayden Cam MCH (RBC) [Entitic mass] 29.6 pg Normal 26.7-34.0 [facility] Comment on above: Performed By: #### L IPA #### [facility] [address] [place] [address] Dr. Ayden Cam MCHC (RBC) [Mass/Vol] 32.9 g/dL Normal 29.9-35.2 [facility] Comment on above: Performed By: #### L IPA #### [facility] [address] [place] [address] Dr. Ayden Cam MCV (RBC) [Entitic vol] 89.8 fL Normal 81.0-99.0 [facility] Comment on above: Performed By: #### L IPA #### [facility] [address] [address] [address] Ayden Cam MONO # 0.6 103/ul Normal 0.3-0.8 [facility] Comment on above: Performed By: #### L IPA #### [facility] [address] [address] [address] Ayden Cam Monocytes/100 WBC (Bld) 10.1 % Normal 1.7-12.0 [facility] Comment on above: Performed By: #### L IPA #### [facility] [address] [address] [address] Ayden Cam NEUT # 3.2 103/ul Normal 1.4-6.5 [facility] Comment on above: Performed By: #### L IPA #### [facility] [address] [place] [address] Dr. Ayden Cam Neutrophils/100 WBC (Bld) 53.7 % Normal 43.0-75.0 [facility] Comment on above: Performed By: #### L IPA #### [facility] [address] [address] [address] Ayden Cam Platelet mean volume (Bld) [Entitic vol] 9.7 fL Normal 9.5-13.5 [facility] Comment on above: Performed By: #### L IPA #### [facility] [address] [address] [address] Ayden Cam PLT 168 103/ul Normal 150-450 [facility] Comment on above: Performed By: #### L IPA #### [facility] [address] [address] [address] Ayden Cam RBC 4.33 106/ul Normal 4.20-5.40 [facility] Comment on above: Performed By: #### L IPA #### [facility] [address] [address] [address] Ayden Cam WBC 6.0 103/ul Normal 4.0-11.0 [facility] Comment on above: Performed By: #### L IPA #### [facility] [address] [place] [address] Dr. Ayden Cam LIPASEon 10-05-2022 Lipase [Catalytic activity/Vol] 151.0 U/L Normal 73.0-393.0 [facility] Comment on above: Performed By: #### L IPA #### [facility] [address] [place] [address] Dr. Ayden Cam LIVER PROFILEon 10-05-2022 Albumin [Mass/Vol] 3.2 g/dL Critically low 3.4-5.0 [facility] Comment on above: Performed By: #### L ACT #### [facility] [address] [place] [address] Dr. Ayden Cam Albumin/Globulin [Mass ratio] 1.1 {ratio} Normal [facility] Comment on above: Performed By: #### L ACT #### [facility] [address] [place] [address] Dr. Ayden Cam ALP [Catalytic activity/Vol] 82 U/L Normal 46-116 [facility] Comment on above: Performed By: #### L ACT #### [facility] [address] [place] [address] Dr. Ayden Cam ALT [Catalytic activity/Vol] 70 U/L Critically high 14-59 [facility] Comment on above: Performed By: #### L ACT #### [facility] [address] [place] [address] Dr. Ayden Cam AST [Catalytic activity/Vol] 36 U/L Normal 15-37 [facility] Comment on above: Performed By: #### L ACT #### [facility] [address] [place] [address] Dr. Ayden Cam BILI, CONJUGATED 0.1 mg/dL Normal 0.0-0.2 [facility] Comment on above: Performed By: #### L ACT #### [facility] [address] [place] [address] Dr. Ayden Cam Bilirubin [Mass/Vol] 0.3 mg/dL Normal 0.2-1.0 [facility] Comment on above: Performed By: #### L ACT #### [facility] [address] [address] [address] Ayden Cam Globulin (S) [Mass/Vol] 3.0 g/dL Normal [facility] Comment on above: Performed By: #### L ACT #### [facility] [address] [address] [address] Ayden Cma Protein [Mass/Vol] 6.2 g/dL Critically low 6.4-8.2 [facility] Comment on above: Performed By: #### L ACT #### [facility] [address] [address] [address] Ayden Cam PROF CHEM 8 (BAS METB)on Anion gap [Moles/Vol] 9.5 mmol/L Normal [facility] Comment on above: Performed By: #### B MP #### [facility] [address] [place] [address] Dr. Ayden Cam Calcium [Mass/Vol] 8.9 mg/dL Normal 8.5-10.1 [facility] Comment on above: Performed By: #### B MP #### [facility] [address] [place] [address] Dr. Ayden Cam Chloride [Moles/Vol] 105 mmol/L Normal 98-107 [facility] Comment on above: Performed By: #### B MP #### [facility] [address] [place] [address] Dr. Ayden Cam CO2 [Moles/Vol] 29.6 mmol/L Normal 21.0-32.0 [facility] Comment on above: Performed By: #### B MP #### [facility] [address] [place] [address] Dr. Ayden Cam Creatinine [Mass/Vol] 0.56 mg/dL Normal 0.55-1.02 [facility] Comment on above: Performed By: #### B MP #### [facility] [address] [place] [address] Dr. Ayden Cam EGFR-AF GAMBIAN >60 Normal >=60 [facility] Comment on above: Performed By: #### B MP #### [facility] [address] [address] [address] Ayden Cam EGFR-NON AF GAMBIAN >60 Normal >=60 [facility] Comment on above: Performed By: #### B MP #### [facility] [address] [address] [address] Ayden Cam Glucose [Mass/Vol] 88 mg/dL Normal 74-106 The [facility] Comment on above: Performed By: #### B MP #### [facility] [address] [address] [address] Ayden Cam Potassium [Moles/Vol] 4.1 mmol/L Normal 3.5-5.1 [facility] Comment on above: Performed By: #### B MP #### [facility] [address] [address] [address] Ayden Cam Sodium [Moles/Vol] 140 mmol/L Normal 136-145 [facility] Comment on above: Performed By: #### B MP #### [facility] [address] [place] [address] Dr. Ayden Cam Urea nitrogen [Mass/Vol] 15.0 mg/dL Normal 7.0-18.0 [facility] Comment on above: Performed By: #### B MP #### [facility] [address] [place] [address] Dr. Ayden Cam Urea nitrogen/Creatinine [Mass ratio] 26.8 mg/mg Normal [facility] Comment on above: Performed By: #### B MP #### [facility] [address] [place] [address] Dr. Ayden Cam US Jhony 10-05-2022 US [...] RONAN TORIBIO Date: 2022-10-05 09:52 Normal [facility] XR KUB 1 VIEWon 10-05-2022 [...] RONAN TORIBIO Date: 2022-10-05 09:55 Normal [facility] AMYLASEon 10-04-2022 Amylase [Catalytic activity/Vol] 124 U/L Critically high 25-115 [facility] Comment on above: Performed By: #### L IPA, COLE, CMP #### [facility] [address] [place] [address] Dr. Ayden Cam CBC AUTO DIFFon 10-04-2022 BASO # 0.0 103/ul Normal 0.0-0.1 [facility] Comment on above: Performed By: #### L IPA #### [facility] [address] [address] [address] Ayden Cam Basophils/100 WBC (Bld) 0.3 % Normal 0.2-2.0 [facility] Comment on above: Performed By: #### L IPA #### [facility] [address] [place] [address] Dr. Ayden Cam EO # 0.2 103/ul Normal 0.0-0.7 [facility] Comment on above: Performed By: #### L IPA #### [facility] [address] [place] [address] Dr. Ayden Cam Eosinophils/100 WBC (Bld) 2.9 % Normal 0.9-7.0 [facility] Comment on above: Performed By: #### L IPA #### [facility] [address] [place] [address] Dr. Ayden Cam Erythrocyte distribution width (RBC) [Ratio] 12.3 % Normal 11.0-15.0 [facility] Comment on above: Performed By: #### L IPA #### [facility] [address] [place] [address] Dr. Ayden Cam Hematocrit (Bld) [Volume fraction] 42.0 % Normal 36.0-48.0 [facility] Comment on above: Performed By: #### L IPA #### [facility] [address] [place] [address] Dr. Ayden Cam Hemoglobin (Bld) [Mass/Vol] 14.3 g/dL Normal 12.0-16.0 [facility] Comment on above: Performed By: #### L IPA #### [facility] [address] [place] [address] Dr. Ayden Cam IG # 0.02 10e3/ul Normal 0.00-0.03 [facility] Comment on above: Performed By: #### L IPA #### [facility] [address] [place] [address] Dr. Ayden Cam IG % 0.3 % Normal 0.0-0.5 [facility] Comment on above: Performed By: #### L IPA #### [facility] [address] [place] [address] Dr. Ayden Cam LYMPH # 1.7 103/ul Normal 1.2-3.8 [facility] Comment on above: Performed By: #### L IPA #### [facility] [address] [place] [address] Dr. Ayden Cam Lymphocytes/100 WBC (Bld) 22.5 % Normal 20.5-60.0 [facility] Comment on above: Performed By: #### L IPA #### [facility] [address] [place] [address] Dr. Ayden Cam MANUAL DIFF REQ NO Normal [facility] Comment on above: Performed By: #### L IPA #### [facility] [address] [place] [address] Dr. Ayden Cam MCH (RBC) [Entitic mass] 30.1 pg Normal 26.7-34.0 [facility] Comment on above: Performed By: #### L IPA #### [facility] [address] [place] [address] Dr. Ayden Cam MCHC (RBC) [Mass/Vol] 34.0 g/dL Normal 29.9-35.2 [facility] Comment on above: Performed By: #### L IPA #### [facility] [address] [place] [address] Dr. Ayden Cam MCV (RBC) [Entitic vol] 88.4 fL Normal 81.0-99.0 [facility] Comment on above: Performed By: #### L IPA #### [facility] [address] [place] [address] Dr. Ayden Cam MONO # 0.5 103/ul Normal 0.3-0.8 [facility] Comment on above: Performed By: #### L IPA #### [facility] [address] [place] [address] Dr. Ayedn Cam Monocytes/100 WBC (Bld) 6.0 % Normal 1.7-12.0 [facility] Comment on above: Performed By: #### L IPA #### [facility] [address] [place] [address] Dr. Ayden Cam NEUT # 5.2 103/ul Normal 1.4-6.5 [facility] Comment on above: Performed By: #### L IPA #### [facility] [address] [place] [address] Dr. Ayden Cam Neutrophils/100 WBC (Bld) 68.0 % Normal 43.0-75.0 [facility] Comment on above: Performed By: #### L IPA #### [facility] [address] [address] [address] Ayden Cam Platelet mean volume (Bld) [Entitic vol] 9.6 fL Normal 9.5-13.5 [facility] Comment on above: Performed By: #### L IPA #### [facility] [address] [place] [address] Dr. Ayden Cam PLT 183 103/ul Normal 150-450 [facility] Comment on above: Performed By: #### L IPA #### [facility] [address] [place] [address] Dr. Ayden Cam RBC 4.75 106/ul Normal 4.20-5.40 [facility] Comment on above: Performed By: #### L IPA #### [facility] [address] [place] [address] Dr. Ayden Cam WBC 7.6 103/ul Normal 4.0-11.0 [facility] Comment on above: Performed By: #### L IPA #### [facility] [address] [place] [address] Dr. Ayden Cam Cov[facility]-19 [facility] ([facility]on SARS-CoV-2 (COVID-19) RNA LOWELL+probe Ql (Unsp spec) Not detected Normal NOT DETECTED [facility] Comment on above: Result [...] for this test is supported by the Logistic Manager of Health and Human Service's declaration [...] used). Performed By: #### L IPA #### [facility] [address] [place] [address] Dr. Ayden Cam ER URINE PROFILEon 3 Bilirubin Ql (U) Negative Normal NEGATIVE [facility] Comment on above: Performed By: #### L ACT #### [facility] [address] [place] [address] Dr. Ayden Cam Clarity (U) CLEAR Normal CLEAR [facility] Comment on above: Performed By: #### L ACT #### [facility] [address] [place] [address] Dr. Ayden Cam Color (U) LT. YELLOW Normal YELLOW [facility] Comment on above: Performed By: #### L ACT #### [facility] [address] [place] [address] Dr. Ayden Cma ERUAHD A micrscopic examina tion will be performed if indicated. Normal [facility] Comment on above: Performed By: #### L ACT #### [facility] [address] [place] [address] Dr. Ayden Cam Glucose Ql (U) Negative Normal NEGATIVE [facility] Comment on above: Performed By: #### L ACT #### [facility] [address] [place] [address] Dr. Ayden Cam Hemoglobin Ql (U) Negative Normal NEGATIVE [facility] Comment on above: Performed By: #### L ACT #### [facility] [address] [place] [address] Dr. Ayden Cam Ketones Ql (U) Negative Normal NEGATIVE [facility] Comment on above: Performed By: #### L ACT #### [facility] [address] [place] [address] Dr. Ayden Cam LEUKOCYTES Negative Normal NEGATIVE [facility] Comment on above: Performed By: #### L ACT #### [facility] [address] [place] [address] Dr. Ayden Cam Nitrite Ql (U) Negative Normal NEGATIVE [facility] Comment on above: Performed By: #### L ACT #### [facility] [address] [place] [address] Dr. Ayden Cam pH (U) 8.5 [pH] Normal 5-9 [facility] Comment on above: Performed By: #### L ACT #### [facility] [address] [place] [address] Dr. Ayden Cam SPEC GRAVITY 1.015 Normal 1.005-<=1.02 5 [facility] Comment on above: Performed By: #### L ACT #### [facility] [address] [place] [address] Dr. Ayden Cam UA PROTEIN Negative Normal NEGATIVE/ TRACE [facility] Comment on above: Performed By: #### L ACT #### [facility] [address] [place] [address] Dr. Ayden Cam UR MICRO IND NOT INDICATED Normal [facility] Comment on above: Performed By: #### L ACT #### [facility] [address] [place] [address] Dr. Ayden Cam Urobilinogen Qn (U) 0.2 {Peggy'U}/dL Normal 0.2 - 1. 0 [facility] Comment on above: Performed By: #### L ACT #### [facility] [address] [place] [address] Dr. Ayden Cam LACTATE/LACTIC ACIDon 2022 Lactate [Moles/Vol] 0.8 mmol/L Normal 0.4-1.9 [facility] Comment on above: Performed By: #### L ACT #### [facility] [address] [place] [address] Dr. Ayden Cam LIPASEon 10-04-2022 Lipase [Catalytic activity/Vol] 170.0 U/L Normal 73.0-393.0 [facility] Comment on above: Performed By: #### L ACT #### [facility] [address] [place] [address] Dr. Ayden Cam PROF 14(COMP METB)on 023 Albumin [Mass/Vol] 3.8 g/dL Normal 3.4-5.0 [facility] Comment on above: Performed By: #### L ACT #### [facility] [address] [address] [address] Ayden Cam Albumin/Globulin [Mass ratio] 1.1 {ratio} Normal [facility] Comment on above: Performed By: #### L ACT #### [facility] [address] [address] [address] Ayden aCm ALP [Catalytic activity/Vol] 101 U/L Normal 46-116 [facility] Comment on above: Performed By: #### L ACT #### [facility] [address] [address] [address] Ayden Cam ALT [Catalytic activity/Vol] 94 U/L Critically high 14-59 [facility] Comment on above: Performed By: #### L ACT #### [facility] [address] [place] [address] Dr. Ayden Cam Anion gap [Moles/Vol] 11.1 mmol/L Normal [facility] Comment on above: Performed By: #### L ACT #### [facility] [address] [place] [address] Dr. Ayden Cam AST [Catalytic activity/Vol] 59 U/L Critically high 15-37 [facility] Comment on above: Performed By: #### L ACT #### [facility] [address] [place] [address] Dr. Ayden Cam Bilirubin [Mass/Vol] 0.3 mg/dL Normal 0.2-1.0 [facility] Comment on above: Performed By: #### L ACT #### [facility] [address] [address] [address] Ayden Cam Calcium [Mass/Vol] 9.5 mg/dL Normal 8.5-10.1 [facility] Comment on above: Performed By: #### L ACT #### [facility] [address] [place] [address] Dr. Ayden Cam Chloride [Moles/Vol] 99 mmol/L Normal 98-107 [facility] Comment on above: Performed By: #### L ACT #### [facility] [address] [place] [address] Dr. Ayden Cam CO2 [Moles/Vol] 29.7 mmol/L Normal 21.0-32.0 [facility] Comment on above: Performed By: #### L ACT #### [facility] [address] [address] [address] Ayden Cam Creatinine [Mass/Vol] 0.61 mg/dL Normal 0.55-1.02 [facility] Comment on above: Performed By: #### L ACT #### [facility] [address] [address] [address] Ayden Cam EGFR-AF GAMBIAN >60 Normal >=60 [facility] Comment on above: Performed By: #### L ACT #### [facility] [address] [place] [address] Dr. Ayden Cam EGFR-NON AF GAMBIAN >60 Normal >=60 [facility] Comment on above: Performed By: #### L ACT #### [facility] [address] [address] [address] Ayden Cam Globulin (S) [Mass/Vol] 3.4 g/dL Normal [facility] Comment on above: Performed By: #### L ACT #### [facility] [address] [address] [address] Ayden Cam Glucose [Mass/Vol] 111 mg/dL Critically high 74-106 [facility] Comment on above: Performed By: #### L ACT #### [facility] [address] [address] [address] Ayden Cam Potassium [Moles/Vol] 3.8 mmol/L Normal 3.5-5.1 [facility] Comment on above: Performed By: #### L ACT #### [facility] [address] [address] [address] Ayden Cam Protein [Mass/Vol] 7.2 g/dL Normal 6.4-8.2 [facility] Comment on above: Performed By: #### L ACT #### [facility] [address] [address] [address] Ayden Cam Sodium [Moles/Vol] 136 mmol/L Normal 136-145 [facility] Comment on above: Performed By: #### L ACT #### [facility] [address] [address] [address] Ayden Cam Urea nitrogen [Mass/Vol] 23.0 mg/dL Critically high 7.0-18.0 [facility] Comment on above: Performed By: #### L ACT #### [facility] [address] [address] [address] Ayden Cam Urea nitrogen/Creatinine [Mass ratio] 37.7 mg/mg Normal [facility] Comment on above: Performed By: #### L ACT #### [facility] [address] [address] [address] Ayden Cam TROPONIN, HIGH SENSITIVITYon 10-04-2022 HSTROP 8.9 pg/mL Normal 4.0-51.3 [facility] Comment on above: Result Comment: CUT- OFF POINTS HAVE BEEN ESTABLISHED BASED ON THE FOURTH UNIVERSAL DEFINITIONS OF MYOCARDIAL INFARCTION. THE UPPER REFERENCE LIMIT (URL) OF TROPONIN, DEFINED THE 99TH PERCENTILE OF cTnI DISTRIBUTION IN A REFERENCE POPULATION, HAS BEEN CONFIRMED THE DECISION THRESHOLD FOR PR DIAGNOSIS. Performed By: #### L ACT #### [facility] [address] [place] [address] Dr. Ayden Cam LIPID PROFILEon 09-19-2022 CHOL-HDL RATIO NORM SEE BELOW Normal [facility] Comment on above: Result Comment: 3.3 - 4.4 LOW RISK 4.4 - 7.1 AVERAGE RISK 7.1 - 11.0 MODERATE RISK >11.0 HIGH RISK Performed By: #### L IPA #### [facility] [address] [place] [address] Dr. Ayden Cam Cholesterol [Mass/Vol] 116 mg/dL Normal <=200 [facility] Comment on above: Performed By: #### L IPA #### [facility] [address] [address] [address] Ayden Cam Cholesterol in HDL [Mass/Vol] 59 mg/dL Normal 40-60 [facility] Comment on above: Performed By: #### L IPA #### [facility] [address] [address] [address] Ayden Cam Cholesterol in LDL [Mass/Vol] 34.0 mg/dL Normal [facility] Comment on above: Performed By: #### L IPA #### [facility] [address] [address] [address] Ayden Cam Cholesterol.total/Cho lesterol in HDL [Mass ratio] 2.0 {ratio} Normal [facility] Comment on above: Performed By: #### L IPA #### [facility] [address] [address] [address] Ayden Cam HDL NORMAL > or = 60 mg/dl - LO W CARDIOVASCULAR RISK <40 mg/dl - HIGH CARDIOVASCULAR RISK Normal [facility] Comment on above: Performed By: #### L IPA #### [facility] [address] [place] [address] Dr. Ayden Cam LDL CALC NORMAL SEE BELOW Normal [facility] Comment on above: Result Comment: <100 mg/dl OPTIMAL 100 - 129 mg/dl NEAR OR ABOVE OPTIMAL 130 - 159 mg/dl BORDERLINE HIGH 160 - 189 mg/dl HIGH >190 mg/dl VERY HIGH Performed By: #### L IPA #### [facility] [address] [place] [address] Dr. Ayden Cam Triglyceride [Mass/Vol] 115 mg/dL Normal <=150 [facility] Comment on above: Performed By: #### L IPA #### [facility] [address] [place] [address] Dr. Ayden Cam VLDL CALC 23.0 mg/dL Normal [facility] Comment on above: Performed By: #### L IPA #### [facility] [address] [place] [address] Dr. Ayden Cam VITAMIN D 25 OHon 09-19-2022 VIT D 25-OH 89.3 ng/mL Normal [facility] Comment on above: Performed By: #### V ITAD #### [facility] [address] [place] [address] Dr. Ayden Cam VIT D RANGES SEE BELOW Normal [facility] Comment on above: Result Comment: <20 ng/mL Vit D deficient 20 - <30 ng/mL Vit D insufficient 30 - 100 ng/mL Vit D sufficient >100 ng/mL Potential Toxicity Performed By: #### V ITAD #### [facility] [address] [address] [address] Ayden Cam Office Visit (Cardiology)on 08-15-2022 Follow-up visit Diagnoses/Problems Assessed Atherosclerosis of coronary artery of mi'kmaq heart without angina pectoris (414.01) (I25.10) History of coronary artery bypass graft (V45.81) (Z95.1) Ischemic cardiomyopathy (414.8) (I25.5) Hyperlipidemia (272.4) (E78.5) Essential hypertension, benign (401.1) (I10) Never a smoker Overweight with body mass index (BMI) of 26 to 26.9 in adult (278.02,V85.22) (E66.3,Z68.26) Paroxysmal SVT (supraventricular tachycardia) (427.0) (I47.1) Orders Atherosclerosis of coronary artery of mi'kmaq heart without angina pectoris, Essential hypertension, benign, Hyperlipidemia Basic Metabolic Panel; Status:Active - Retrospective Authorization; Requested for:[id number]; Lipid Panel; Status:Active - Retrospective Authorization; Requested for:[id number]; Overweight with body mass index (BMI) of 26 to 26.9 in adult Healthy Weight Tips; Status:Complete - Retrospective Authorization; Done: [id number] Some eating tips that can help you lose weight.; Status:Complete - Retrospective Authorization; Done: [id number] SocHx: Never a smoker Tobacco Use Screening; Status:Complete; Done: [id number] Patient Instructions Please bring all medicines, vitamins, [...] She has a history of prior inferior PR, prior PCI with subsequent three-vessel CABG and [...] CHEST PAIN.CALL 911 IF PAIN PERSISTS. Nyamyc [id number] UNIT/GM External Powderapply topically to affected area [...] Adverse Reaction; Elevated hepatic enzymes; Recorded By: eJnnifer Jean; 08/17/2021 9:42:39 AM Penicillins Allergy; Rash; Recorded By: Jennfier Jean; 08/17/2021 9:42:39 AM NonMedication Latex Adverse [...] no s (more content not included)... Normal [employer] Tobacco Screening.on Adult depression screening assessment No [facility] y [facility] DO Work Phone: Fall risk assessment a) No falls within the last year [facility] [employer] [facility] y [facility] DO Work Phone: Tobacco use status [facility] b) No [facility] 250 DO Work Phone: MRI Ankle w/o [...] by Wilder Arango on 08/01/2022 1102 Normal [facility] [employer] Tobacco Screening.on 021 Tobacco use status [facility] b) No -[facility] y 250 DO Work Phone: Vital Signs Date Time Vital Sign Value Performing Clinician Facility 09-05-2024 09:53-0500 Body height 160 cm Celso Garibay DO Work Phone: [facility] 09-05-2024 09:53-0500 Body mass index (BMI) [Ratio] 30.11 kg/m2 Celso Garibay DO Work Phone: [facility] 09-05-2024 09:53-0500 Body weight 77.11 kg Celso Garibay DO Work Phone: [facility] 09-05-2024 09:53-0500 Diastolic blood pressure 80 mm[Hg] Celso Garibay DO Work Phone: [facility] 09-05-2024 09:53-0500 Heart rate 66 /min Celso Garibay DO Work Phone: [facility] 09-05-2024 09:53-0500 Systolic blood pressure 118 mm[Hg] Celso Phoenix DO Work Phone: [facility] 08-19-2024 01:03-0500 Diastolic blood pressure 69 mm[Hg] Ashley Grigsby MD Work Phone: [facility] 08-19-2024 01:03-0500 Heart rate 60 /min Ashley Grigsby MD Work Phone: [facility] 08-19-2024 01:03-0500 Respiratory rate 20 /min Ashley Grigsby MD Work Phone: [facility] 08-19-2024 01:03-0500 SaO2% (BldA) [Mass fraction] 96 % Ashley Grigsby MD Work Phone: [facility] 08-19-2024 01:03-0500 Systolic blood pressure 130 mm[Hg] Ashley Grigsby MD Work Phone: [facility] 08-18-2024 20:55-0500 Body height 160.02 cm Ashley Grigsby MD Work Phone: [facility] 08-18-2024 20:55-0500 Body temperature 97.4 [degF] Ashley Grigsby MD Work Phone: [facility] 08-18-2024 20:55-0500 Body weight 78.5 kg Ashley Grigsby MD Work Phone: [facility] 08-13-2024 12:21-0500 Body height 160 cm Celso Garibay DO Work Phone: [facility] 08-13-2024 12:21-0500 Body mass index (BMI) [Ratio] 30.47 kg/m2 Celso Garibay DO Work Phone: [facility] 08-13-2024 12:21-0500 Body weight 78.02 kg Celso Garibay DO Work Phone: [facility] 08-13-2024 12:21-0500 Diastolic blood pressure 94 mm[Hg] Celso Garibay DO Work Phone: [facility] 08-13-2024 12:21-0500 Heart rate 76 /min Celso Garibay DO Work Phone: [facility] 08-13-2024 12:21-0500 Systolic blood pressure 138 mm[Hg] Celso Garibay DO Work Phone: [facility] 08-05-2024 11:08-0500 Blood Pressure Location JENNIFER MARTINO [facility] 08-05-2024 11:08-0500 Body temperature 98.6 [degF] [place] [facility] 08-05-2024 11:08-0500 Diastolic blood pressure 80 mm[Hg] [place] [facility] 08-05-2024 11:08-0500 Heart rate 68 /min [place] [facility] 08-05-2024 11:08-0500 Respiratory rate 16 /min [place] [facility] 08-05-2024 11:08-0500 Systolic blood pressure 131 mm[Hg] [place] [facility] 04-10-2024 15:08-0400 Blood Pressure Location [place] [facility] 04-10-2024 15:08-0400 Diastolic blood pressure 80 mm[Hg] [place] [facility] 04-10-2024 15:08-0400 Heart rate 75 /min [place] [facility] 04-10-2024 15:08-0400 Respiratory rate 16 /min [place] [facility] 04-10-2024 15:08-0400 Systolic blood pressure 131 mm[Hg] [place] [facility] 08-14-2023 15:29-0500 Body height 161.3 cm Celso Garibay DO Work Phone: [facility] 08-14-2023 15:29-0500 Body mass index (BMI) [Ratio] 28.07 kg/m2 Celso Garibay DO Work Phone: [facility] 08-14-2023 15:29-0500 Body weight 73.03 kg Celso Garibay DO Work Phone: [facility] 08-14-2023 15:29-0500 Diastolic blood pressure 80 mm[Hg] Celso Garibay DO Work Phone: [facility] 08-14-2023 15:29-0500 Heart rate 56 /min Celso Garibay DO Work Phone: [facility] 08-14-2023 15:29-0500 Systolic blood pressure 138 mm[Hg] Celso Garibay DO Work Phone: [facility] 06-18-2023 15:15-0400 Diastolic blood pressure 78 mm[Hg] Gaby Tello DO Work Phone: [employer] 06-18-2023 15:15-0400 Heart rate 70 /min Gaby Tello DO Work Phone: [employer] 06-18-2023 15:15-0400 Respiratory rate 18 /min Gaby Novoag DO Work Phone: [employer] 06-18-2023 15:15-0400 SaO2% (BldA) [Mass fraction] 96 % Gaby Novoag DO Work Phone: [employer] 06-18-2023 15:15-0400 Systolic blood pressure 173 mm[Hg] Gaby Novoag DO Work Phone: [employer] 06-18-2023 14:36-0400 Body temperature 97 [degF] Gaby Novoag DO Work Phone: [employer] 06-18-2023 13:30-0400 Body height 160 cm Gaby Tello DO Work Phone: [facility] 06-18-2023 13:30-0400 Body mass index (BMI) [Ratio] 27.03 kg/m2 Gaby Tello DO [facility] Phone[facility] 06-18-2023 13:30-0400 Body weight 69.22 kg Gaby Tello DO Work Phone: [facility] 11-02-2022 15:02-0500 Diastolic blood pressure 84 mm[Hg] MD Ashley Grigsby Work Phone: [facility] 11-02-2022 15:02-0500 Heart rate 78 /min MD Ashley Grigsby Work Phone: [facility] 11-02-2022 15:02-0500 Respiratory rate 18 /min MD Ashley Grigsby Work Phone: [facility] 11-02-2022 15:02-0500 SaO2% (BldA) [Mass fraction] 100 % MD Ashley Grigsby Work Phone: [facility] 11-02-2022 15:02-0500 Systolic blood pressure 161 mm[Hg] MD Ashley Grigsby Work Phone: [facility] 11-02-2022 13:20-0500 Body height 160.02 cm MD Ashley Grigsby Work Phone: [facility] 11-02-2022 13:20-0500 Body temperature 98.2 [degF] MD Ashley Grigsby Work Phone: [facility] 11-02-2022 13:20-0500 Body weight 60.78 kg MD Ashley Grigsby Work Phone: [facility] 11-01-2022 13:26-0500 Diastolic blood pressure 61 mm[Hg] MD Ashley Grigsby Work Phone: [facility] 11-01-2022 13:26-0500 Heart rate 59 /min MD Ashley Grigsby Work Phone: [facility] 11-01-2022 13:26-0500 Respiratory rate 20 /min MD Ashley Grigsby Work Phone: [facility] 11-01-2022 13:26-0500 SaO2% (BldA) [Mass fraction] 99 % MD Ashley Grigsby Work Phone: [facility] 11-01-2022 13:26-0500 Systolic blood pressure 124 mm[Hg] MD Ashley Grigsby Work Phone: [facility] 11-01-2022 10:53-0500 Body height 160.02 cm MD Ashley Grigsby Work Phone: [facility] 11-01-2022 10:53-0500 Body temperature 97.7 [degF] MD Ashley Grigsby Work Phone: [facility] 11-01-2022 10:53-0500 Body weight 61.68 kg MD Ashley Grigsby Work Phone: [facility] 10-24-2022 15:45-0500 Body height 159.38 cm Imad Asaad Other [employer] Other 10-24-2022 15:45-0500 Body mass index (BMI) [Ratio] 24.28 kg/m2 Imad Asaad Other [employer] Other 10-24-2022 15:45-0500 Body weight 61.69 kg Imad Asaad Other [employer] Other 10-24-2022 15:45-0500 Diastolic blood pressure 94 mm[Hg] Imad Asaad Other [employer] Other 10-24-2022 15:45-0500 Systolic blood pressure 133 mm[Hg] Imad Asaad Other [employer] Other 09-19-2022 00:00-0500 34 1 Ashley M Hoy Work Phone: [facility] DO Work Phone: Comment on above: [employer] 08-15-2022 15:23-0500 Body height 160.02 cm Ashley M Hoy Work Phone: [facility] DO Work Phone: 08-15-2022 15:23-0500 Body mass index (BMI) [Ratio] 26.22 kg/m2 Ashley M Hoy Work Phone: [facility] DO Work Phone: 08-15-2022 15:23-0500 Body surface area Derived from formula 1.7 m2 Ashley M Hoy Work Phone: [facility] DO Work Phone: 08-15-2022 15:23-0500 Body weight 67.13 kg Ashley M Hoy Work Phone: [facility] DO Work Phone: 08-15-2022 15:23-0500 Diastolic blood pressure 82 mm[Hg] Ashley M Hoy Work Phone: [facility] DO Work Phone: 08-15-2022 15:23-0500 Heart rate 80 /min Ashley M Hoy Work Phone: [facility] DO Work Phone: 08-15-2022 15:23-0500 Systolic blood pressure 132 mm[Hg] Ashley M Hoy Work Phone: [facility] DO Work Phone: 06-02-2022 08:12-0400 Blood Pressure Location Santiago CARRILLO [facility] [place] [address]-02-2022 08:12-0400 Diastolic blood pressure 86 mm[Hg] Santiago CARRILLO [facility] 06-02-2022 08:12-0400 Heart rate 60 /min Santiago CARRILLO [facility] 06-02-2022 08:12-0400 Respiratory rate 16 /min Santiago CARRILLO [facility] 06-02-2022 08:12-0400 Systolic blood pressure 144 mm[Hg] Santiago CARRILLO [facility] 08-17-2021 09:47-0500 Body height 160.02 cm Ashley M Hoy Work Phone: [facility] DO Work Phone: 08-17-2021 09:47-0500 Body mass index (BMI) [Ratio] 25.01 kg/m2 Ashley M Hoy Work Phone: [facility] DO Work Phone: 08-17-2021 09:47-0500 Body surface area Derived from formula 1.67 m2 Ashley M Hoy Work Phone: [facility] DO Work Phone: 08-17-2021 09:47-0500 Body weight 64.05 kg Ashley M Hoy Work Phone: [facility] DO Work Phone: 08-17-2021 09:47-0500 Diastolic blood pressure 86 mm[Hg] Ashley M Hoy Work Phone: [facility] DO Work Phone: 08-17-2021 09:47-0500 Heart rate 72 /min Ashley M Hoy Work Phone: [facility] DO Work Phone: 08-17-2021 09:47-0500 Systolic blood pressure 134 mm[Hg] Ashley Tyree Seb Work Phone: [facility] DO Work Phone: Encounters Encounter Date Encounter Type Care Provider Facility Start: 09-05-2024 End: 09-05-[address] [facility] Ambulatory Start: 09-05-2024 End: 09-05-2024 Transitional care manage srvc 14 day discharge [facility] DO Work Phone: [facility] Comment on above: Atherosclerosis of c oronary artery bypass graft of mi'kmaq heart without angina pectoris; S/P PTCA (percutaneous transluminal coronary angioplasty); History of coronary artery bypass graft; Ischemic cardiomyopathy; Essential hypertension; Mixed hyperlipidemia; BMI 30.0-30.9,adult; Statin intolerance Start: 08-20-2024 End: 08-22-2024 Evaluation and management of inpatient Donis Arroyo Facility:[facility] Start: 08-18-2024 Evaluation and management of inpatient Ashley Grigsby MD Work Phone: [facility] [place] [facility] Work Phone: Start: 08-18-2024 observation encounter Ashley Grigsby MD Work Phone: [facility] Work Phone: Start: 08-13-2024 End: 08-13-[address] [facility] Ambulatory Start: 08-13-2024 End: 08-13-2024 Office outpatient [facility]: [facility] Comment on above: Atherosclerosis of c oronary artery of mi'kmaq heart without angina pectoris, unspecified vessel or lesion type; History of coronary artery bypass graft; Essential hypertension, benign; Hyperlipidemia, unspecified hyperlipidemia type; Acute pancreatitis, unspecified complication status, unspecified pancreatitis type ([facility] Start: 08-05-2024 End: 08-05-2024 ambulatory BARRY MARTINO Facility:[facility] Start: 08-05-2024 End: 08-05-2024 Patient encounter procedure JENNIFER MARTINO [facility] Start: 04-10-2024 End: 04-10-2024 ambulatory PA-C JENNIFER MARTINO Facility:[facility] Start: 04-10-2024 End: 04-10-2024 Patient encounter procedure JENNIFRE MARTINO [facility] Start: 03-11-2024 End: 03-11-2024 ambulatory PA-C JENNIFER MARTINO Facility:[facility] Start: 03-11-2024 End: 03-11-2024 Patient encounter procedure JENNIFER MARTINO [facility] Start: 03-07-2024 End: 03-07-2024 Evaluation and management of inpatient ASHLEIGH LETHA [facility] Start: 03-06-2024 End: 03-07-2024 Evaluation and management of inpatient [facility] Start: 03-06-2024 End: 03-06-2024 Evaluation and management of inpatient [facility] Start: 02-29-2024 End: 02-29-2024 Evaluation and management of inpatient ASHLEY M SEB [facility] Start: 02-27-2024 ambulatory [facility] Start: 02-27-2024 End: 02-27-2024 ambulatory [facility] Start: 01-17-2024 End: 01-17-2024 ambulatory STEPHANIE BERGER [facility] Start: 09-13-2023 End: 09-13-2023 ambulatory ALINA JAVIER Not Available Start: 08-14-2023 End: 08-14-2023 Office outpatient visit 15 minutes Celso Garibay DO Work Phone: [facility] Comment on above: Atherosclerosis of c oronary artery of mi'kmaq heart without angina pectoris, unspecified vessel or lesion type; History of coronary artery bypass graft; Ischemic cardiomyopathy; Essential hypertension, benign Start: 06-18-2023 End: 06-18-2023 ambulatory GABY TELLO [facility] Start: 06-18-2023 End: 06-18-2023 Subsequent hospital visit by physician Gaby Tello DO Work Phone: [facility] Comment on above: Post-menopausal blee ding; Inclusion cyst Start: 05-24-2023 Rx Renewal Ashley Grigsby Work Phone: [facility] DO Work Phone: Start: 05-17-2023 Patient encounter procedure Ashley Grisgby Work Phone: [facility] 250 DO Work Phone: Start: 05-15-2023 [facility] Start: 12-12-2022 End: 12-12-2022 ambulatory MD Ashley Grigsby Work Phone: [facility] Work Phone: Start: 12-12-2022 End: 12-12-2022 Patient encounter procedure MD Ashley Grigsby Work Phone: [facility] Work Phone: Start: 11-20-2022 End: 11-20-2022 ambulatory Imad Asaad Other [facility] [place] Other Start: 11-20-2022 Telephone encounter Imad Asaad [facility] Start: 11-10-2022 End: 11-10-2022 Patient encounter procedure MD Ashley Grigsby Work Phone: [facility] [place] Work Phone: Start: 11-02-2022 End: 11-02-2022 Admission to same day surgery center MD Ashley Grigsby Work Phone: [facility] Work Phone: Start: 11-02-2022 End: 11-02-2022 ambulatory MD Ashley Grigsby Work Phone: [facility] Work Phone: Start: 11-01-2022 Telephone encounter Imad Asaad [facility] Start: 11-01-2022 End: 11-01-2022 Admission to same day surgery center MD Ashley Grigsby Work Phone: [facility] Work Phone: Start: 11-01-2022 End: 11-01-2022 ambulatory MD Ashley Grigsby Work Phone: [facility] Work Phone: Start: 10-24-2022 End: 10-24-2022 ambulatory Imad Asaad Other [facility] [place] Other Start: 10-24-2022 [facility] visit new patient Imad Asaad [facility] Start: 10-16-2022 End: 10-17-[address] ASHLEY GRIGSBY Facility:[facility] Start: 10-09-2022 End: 10-10-[address] ASHLEY GRIGSBY Facility:[facility] Start: 10-05-2022 Rx Renewal Ashley Grigsby Work Phone: [facility] DO Work Phone: Start: 10-04-2022 End: 10-06-[address] ASHLEY GRIGSBY Facility:[facility] Start: 09-19-2022 End: 09-20-[address] DOCTOR PATEL Facility:[facility] Start: 08-15-2022 Office outpatient vi sit 15 minutes Ashley Grigsby Work Phone: [facility] DO Work Phone: Start: 08-15-2022 Patient encounter procedure Ashley Grigsby Work Phone: [facility] DO Work Phone: Start: 06-02-2022 End: 06-02-2022 Patient encounter procedure Santiago CARRILLO [facility] Start: 05-31-2022 Rx Renewal Ashley Grigsby Work Phone: [facility] DO Work Phone: Start: 02-07-2022 End: 02-07-2022 Patient encounter procedure Ashley Grigsby MD Work Phone: [facility] Start: 02-07-2022 End: 02-07-2022 Subsequent hospital visit by physician Ashley Grigsby MD Work Phone: [facility] Comment on above: Women's annual routi ne gynecological examination Start: 11-21-2021 Rx Renewal Ashley Grigsby Work Phone: [facility] DO Work Phone: Start: 08-17-2021 Office outpatient vi sit 15 minutes Ashley Grigsby Work Phone: [facility] DO Work Phone: Start: 08-19-2019 End: 08-19-2019 Subsequent [facility] visit by [facility] Comment on above: Well female exam wit h routine gynecological exam Start: 08-29-2017 Ambulatory PROVIDER UNKNOWN Facili ty:[id number] Start: 08-27-2017 Ambulatory PROVIDER UNKNOWN Facili ty:[id number] Start: 08-27-2017 Ambulatory Facility:[id number] Procedures Date Procedure Procedure Detail Performing Clinician Start: 08-18-2024 Plain chest X-ray Ashley Grigsby MD Work Phone: Start: 03-06-2024 Esophagoscopy flexible transoral ultrasound exam JENNIFER MARTINO Start: 08-15-2023 Mammography Celso Garibay DO Work Phone: Start: 08-09-2023 History of coronary artery bypass grafting History of coronary artery bypass graft Celso Garibay DO Work Phone: Start: 12-12-2022 Ultrasound elastography of liver MD Deacon Grigsby Work Phone: Start: 11-10-2022 Magnetic resonance cholangiopancreatography MD Ashley Grigsby Work Phone: Start: 11-02-2022 End: 11-02-2022 Colonoscopy MD Ashley Grigsby Work Phone: Start: 11-01-2022 Colonoscopy MD Ashley Grigsby Work Phone: Start: 07-24-2022 Mammography Celso Garibay DO Work Phone: Start: 02-07-2022 Microscopic observation [Identifier] in Cervix by Cyto stain Gaby Tello DO Work Phone: Start: 11-01-2019 Excision of ganglion cyst Santiagohilda CARRILLO Start: 08-19-2019 Microscopic observation [Identifier] in Cervix by Cyto stain Ashley Grigsby MD Work Phone: Start: 12-03-2018 Cystoscopic removal of ureteric stent [place] Appendectomy Ashley M Hoy Work Phone: Appendectomy [...] bypass graft Celso Garibay DO Work Phone: History of coronary artery bypass grafting History of coronary artery bypass graft Celso Garibay DO Work Phone: History of coronary artery bypass grafting History of coronary artery bypass graft Celso Garibay DO Work Phone: Kidney operation Ashley Clements [facility] Work Phone: Operation on nose Ashley Clements [place] Work Phone: Peripheral neuroplasty Cecilio Clements [place] Work Phone: Repair of inguinal hernia Pa jdk CARRILLO Total colonoscopy Ashley Grigsby Work Phone: Plan of Treatment Date Care Activity Detail Author Start: 11-02-2032 Screening for malignant neoplasm of colon [facility] Start: 02-07-2027 Screening for malignant neoplasm of cervix [facility] Start: 08-18-2025 End: 08-18-2025 Patient encounter procedure 08/18/2025 11:20 AM EST Office Visit [facility] [address] [place] [address] Celso Garibay DO [address] [place] [address] [facility] Start: 08-03-2025 End: 08-13-2025 Alanine aminotransferase [Enzymatic activity/volume] in Serum or Plasma by With P-5'-P Alanine Aminotransferase Lab Routine Hyperlipidemia, unspecified hyperlipidemia type Expected: 08/03/2025 (Approximate), Expires: 08/13/2025 [facility] Service Area Work Phone: Comment on above: Expected: 08/03/2025 (Approximate), Expi res: 08/13/2025 Start: 08-03-2025 End: 08-13-2025 Aspartate aminotransferase [Enzymatic activity/volume] in Serum or Plasma by With P-5'-P Aspartate Aminotransferase Lab Routine Hyperlipidemia, unspecified hyperlipidemia type Expected: 08/03/2025 (Approximate), Expires: 08/13/2025 [facility] Work Phone: Comment on above: Expected: 08/03/2025 (Approximate), Expi res: 08/13/2025 Start: 08-03-2025 End: 08-13-2025 Lipid 1996 panel - Serum or Plasma Lipid Panel Lab Routine Hyperlipidemia, unspecified hyperlipidemia type Expected: 08/03/2025 (Approximate), Expires: 08/13/2025 [facility] Work Phone: Comment on above: Expected: 08/03/2025 (Approximate), Expi res: 08/13/2025 Start: 03-17-2025 End: 03-17-2025 Patient encounter procedure 03/17/2025 2:40 PM EDT Office Visit [facility] [address] [place] [address] Celso Garibay, [address] [place] [address] [facility] Start: 02-07-2025 Screening for malignant neoplasm of cervix [facility] Start: 08-19-2024 Screening for malignant neoplasm of cervix [facility] Start: 08-19-2024 [facility] Start: 08-19-2024 Referral to specialty cook [facility] Start: 08-19-2024 [facility] Start: 08-18-2024 Hospital admission [facility] Start: 08-15-2024 Screening for malignant neoplasm of breast Mammogram [facility] Start: 08-13-2024 End: 08-13-2024 Patient encounter procedure 08/13/2024 11:30 AM EST Office Visit [facility] [address] [place] [address] Celso Garibay, DO [address] [place] [address] [facility] Start: 2024 RSV High Risk: (Elderly (60+) or Population) (1 - Risk 60-74 years 1-dose series) RSV High Risk: (Elderly (60+) or Population) (1 - Risk 60-74 years 1-dose series) [facility] Start: 06-01-2024 COVID-19 Vaccine ( season) COVID-19 Vaccine ( season) [facility] Start: 02-14-2024 Depression Screen Depression Screen [facility] Start: 02-12-2024 End: 08-14-2024 Alanine aminotransferase [Enzymatic activity/volume] in Serum or Plasma by With P-5'-P Alanine Aminotransferase Lab Routine History of coronary artery bypass graft Ischemic cardiomyopathy Expected: 02/12/2024 (Approximate), Expires: 08/14/2024 [facility] Work Phone: Comment on above: Expected: 02/12/2024 (Approximate), Expi res: 08/14/2024 Start: 02-12-2024 End: 08-14-2024 Aspartate aminotransferase [Enzymatic activity/volume] in Serum or Plasma by With P-5'-P Aspartate Aminotransferase Lab Routine Atherosclerosis of coronary artery of mi'kmaq heart without angina pectoris, unspecified vessel or lesion type Ischemic cardiomyopathy Expected: 02/12/2024 (Approximate), Expires: 08/14/2024 [facility] Work Phone: Comment on above: Expected: 02/12/2024 (Approximate), Expi res: 08/14/2024 Start: 02-12-2024 End: 08-14-2024 Lipid 1996 panel - Serum or Plasma Lipid Panel Lab Routine Atherosclerosis of coronary artery of mi'kmaq heart without angina pectoris, unspecified vessel or lesion type Expected: 02/12/2024 (Approximate), Expires: 08/14/2024 [facility] Service Area Work Phone: Comment on above: Expected: 02/12/2024 (Approximate), Expi res: 08/14/2024 Start: 08-14-2023 FUV, Provider: Celso Garibay, Status: Pen, Time: 3:00 PM FUV, Provider: Celso Garibay, Status: Pen, Time: 3:00 PM [facility] Work Phone: Start: 07-28-2023 Screening for malignant neoplasm of breast Breast cancer screen [facility] Start: 07-24-2023 Screening for malignant neoplasm of breast Mammogram [facility] Start: 07-03-2023 End: 07-03-2023 Patient encounter procedure 07/03/2023 4:45 PM EDT Office Visit [facility] [address] [place] [address] Gaby Phillips, DO [address] [place] [address] post-op BA 05/16 [facility] Comment on above: post-op BA 05/16 Start: 06-18-2023 End: 06-18-2023 Hysteroscopy bx endometrium&/polypc w/wo d&c DILATATION AND CURETTAGE HYSTEROSCOPY Post-menopausal bleeding Inclusion cyst 06/18/2023 2:01 PM EDT [facility] Start: 02-13-2023 End: 02-13-2023 Patient encounter procedure 02/13/2023 Office Visit Obstetrics and Gynecology Gaby Phillips, DO [address] [place] [address] [facility] Start: 12-12-2022 [facility] Start: 11-02-2022 [facility] Start: 11-01-2022 [facility] Start: 08-19-2022 Screening for malignant neoplasm of cervix Pap smear [facility] Start: 08-15-2022 FUV, Provider: Celso Garibay, Status: Pen, Time: 3:00 PM FUV, Provider: Celso Garibay, Status: Pen, Time: 3:00 PM [facility] Work Phone: Start: 08-03-2022 Lipid panel Lipids [facility] Start: 12-27-2021 COVID-19 Vaccine (4 - Pfizer series) COVID-19 Vaccine (4 - Pfizer series) [facility] Start: 06-01-2019 Influenza vaccination Flu vaccine (#1) [place], [place] Start: 05-09-2018 Pneumococcal Vaccine: Pediatrics (0 to 5 Years) and At-Risk Patients (6 to 64 Years) (2 - PCV) Pneumococcal Vaccine: Pediatrics (0 to 5 Years) and At-Risk Patients (6 to 64 Years) (2 - PCV) [facility] Start: 05-09-2018 Pneumococcal Vaccine: Pediatrics (0 to 5 Years) and At-Risk Patients (6 to 64 Years) (2 of 2 - PCV) Pneumococcal Vaccine: Pediatrics (0 to 5 Years) and At-Risk Patients (6 to 64 Years) (2 of 2 - PCV) [facility] Start: 2014 Breast cancer screen Breast cancer screen [place], [place] Start: 2014 Colon cancer screen colonoscopy Colon cancer screen colonoscopy [place], [place] Start: 2014 Shingles Vaccine (1 of 2) Shingles Vaccine (1 of 2) [facility] Start: 08-26-2009 MMR Vaccines (1 of 1 - Standard series) MMR Vaccines (1 of 1 - Standard series) [facility] Start: 2009 Screening for malignant neoplasm of colon [facility] Start: 1999 Diabetes screen Diabetes screen [facility] Start: 1986 DTaP/Tdap/Td Vaccines (1 - Tdap) DTaP/Tdap/Td Vaccines (1 - Tdap) [facility] Start: 1985 Cervical cancer screen Cervical cancer screen [place], [place] Start: 1985 Screening for malignant neoplasm of cervix [facility] Start: 1983 DTaP/Tdap/Td vaccine (1 - Tdap) DTaP/Tdap/Td vaccine (1 - Tdap) [facility] Start: 1982 Diabetes mellitus screening Diabetes Screening [facility] Start: 1982 Hepatitis C screening [facility] Start: 1979 HIV screen HIV screen [place], [place] Start: 1979 HIV screening HIV screen [facility] Start: 1976 Depression Screen Depression Screen [facility] Start: 1975 DTaP/Tdap/Td vaccine (1 - Tdap) DTaP/Tdap/Td vaccine (1 - Tdap) [facility] Start: 1974 Lipid panel Lipids [facility] Start: 1974 Lipid screen Lipid screen [place], [place] Start: 1964 Hepatitis B vaccine (1 of 3 - 3-dose series) Hepatitis B vaccine (1 of 3 - 3-dose series) [facility] Start: 1964 Hepatitis B Vaccines (1 of 3 - 3-dose series) Hepatitis B Vaccines (1 of 3 - 3-dose series) [facility] Start: 1964 Hepatitis C screen Hepatitis C screen [place], [place] Start: 1964 HIV screening HIV Screening [facility] Start: 1964 Lipid panel Lipid Panel [facility] Start: 1964 Screening for malignant neoplasm of colon [facility] Start: 1964 Yearly Adult Physical Yearly Adult Physical [facility] Actin smooth muscle IgG Ab [Units/volume] in Serum [facility] Alpha 1 antitrypsin [Mass/volume] in Serum or Plasma [facility] Alpha 1 antitrypsin phenotyping [Identifier] in Serum or Plasma by Immunofixation [facility] Ceruloplasmin [Mass/volume] in Serum or Plasma [facility] End: 08-19-2019 Cytopathology procedure, preparation of smear, genital source PAP SMEAR Lab Routine Well female exam with routine gynecological exam 1 Occurrences starting 08/19/2019 until 08/19/2019 [place], [place] Comment on above: 1 Occurrences starting 08/19/2019 until 08/19/2019 End: 02-07-2022 Cytopathology procedure, preparation of smear, genital source PAP SMEAR Lab Routine Women's annual routine gynecological examination 1 Occurrences starting 02/07/2022 until 02/07/2022 [facility] [employer] Work Phone: Comment on above: 1 Occurrences starting 02/07/2022 until 02/07/2022 Glucose measurement estimated from glycated hemoglobin [facility] Hepatitis A virus Ab [Presence] in Serum by Immunoassay [facility] Hepatitis B core ant ibody measurement [facility] Hepatitis B virus khanna rface Ab [Presence] in Serum [facility] Hepatitis B virus khanna rface Ag [Presence] in Serum or Plasma by Immunoassay [facility] Hepatitis C virus Ig G Ab [Presence] in Serum or Plasma by Immunoassay [facility] Homogenous nuclear A b pattern [Titer] in Serum [facility] IgG [Mass/volume] in Serum or Plasma [facility] End: 06-18-2023 INITIATE PACU OXYGEN THERAPY PROTOCOL Initiate PACU Oxygen Therapy Protocol Respiratory Care Routine Continuous until discontinued starting 06/18/2023 [employer] Comment on above: Continuous until discontinued starting 0 06/18/2023 Lipoprotein a [Moles/volume] in Serum or Plasma [facility] Mitochondria M2 IgG Ab [Units/volume] in Serum [facility] Nuclear Ab [Titer] i n Serum [facility] Oxygen therapy [Mini mum Data Set] Initiate Oxygen Therapy Protocol Respiratory Care Routine As Needed until discontinued starting 06/18/2023 [employer] Comment on above: As Needed until discontinued starting Oxygen therapy [Mini mum Data Set] Initiate Oxygen Therapy Protocol Respiratory Care Routine As Needed until discontinued starting 06/18/2023 [employer] Comment on above: As Needed until discontinued starting Patient Education Hemorrhoids (DC) [facility] Work Phone: End: 06-18-2023 , urine POCT , urine POCT Point of Care Testing Routine One Time for 1 Occurrences starting 06/18/2023 until 06/18/2023 [employer] Comment on above: One Time for 1 Occurrences starting 06/01 until 06/18/2023 Surgical Pathology Surgical Path ology Lab Routine Post-menopausal bleeding Inclusion cyst Release Upon Ordering for 1 Occurrences starting 06/18/2023 [employer] Comment on above: Release Upon Ordering for 1 Occurrences starting 06/18/2023 [facility] Immunizations Immunization Date Immunization Notes Care Provider Sudhakar ponce 06-01-2024 influenza, unspecifi ed formulation JENNIFER MARTINO [facility] 06-16-2022 influenza, injectabl e, quadrivalent, preservative free Ashley M Hoy Work Phone: [facility] 250 DO Work Phone: 06-16-2022 zoster vaccine recombinant Ashley M Hoy Work Phone: [facility] 250 DO Work Phone: 08-01-2021 Pfizer-BioNTech COVI D-19 Vacc 30 MCG/0.3ML Intramuscular Suspension Ashley M Hoy Work Phone: [facility] 250 DO Work Phone: 06-30-2021 influenza virus vacc ine, unspecified formulation Ashley M Hoy Work Phone: [facility] 250 DO Work Phone: 06-03-2021 Influenza, injectabl e, Madin Henderson Canine Kidney, preservative free, quadrivalent Ashley M Hoy Work Phone: [facility] 250 DO Work Phone: 01-29-2021 Pfizer-BioNTech COVI D-19 Vacc 30 MCG/0.3ML Intramuscular Suspension Ashley M Hoy Work Phone: [facility] 250 DO Work Phone: 01-08-2021 Pfizer-BioNTech COVI D-19 Vacc 30 MCG/0.3ML Intramuscular Suspension Ashley M Hoy Work Phone: [facility] 250 DO Work Phone: 2020 influenza, injectabl e, quadrivalent, preservative free Ashley M Hoy Work Phone: [facility] 250 DO Work Phone: 07-23-2018 influenza, injectabl e, quadrivalent, preservative free Ashley M Hoy Work Phone: [facility] 250 DO Work Phone: 07-26-2017 Influenza, injectabl e, Madin Henderson Canine Kidney, preservative free, quadrivalent Ashley M Hoy Work Phone: [facility] 250 DO Work Phone: 05-09-2017 pneumococcal polysaccharide vaccine, 23 valent Ashley M Hoy Work Phone: [facility] 250 DO Work Phone: 07-03-2015 influenza, seasonal, injectable, preservative free Ashley M Hoy Work Phone: [facility] 250 DO Work Phone: 06-15-2014 influenza, seasonal, injectable Ashley M Hoy Work Phone: [facility] 250 DO Work Phone: 07-29-2009 novel influenza-H1N1 -09, preservative-free, injectable Ashley M Hoy Work Phone: [facility] 250 DO Work Phone: Payers Date Payer Category Payer Self-pay [id number] [phone] [id number] 2022 [facility] [id number] 2022 Unknown 2019 Unknown [employer] [place] xxxxxxxxxxxxxxx 2019-Present [address] [place] [address] xxxxxxxxxxxxxxx [id number] 1964 Unknown [id number] 2.16.840.1.914396.3.579.2.5 93 1964 Unknown [id number] 2.16.840.1.073678.3.579.2.5 93 1964 Unknown [id number] 2.16.840.1.667046.3.579.2.5 93 1964 Unknown [id number] 2.16.840.1.696925.3.579.2.5 93 1964 Unknown [id number] 2.16.840.1.719171.3.579.2.5 93 1964 Unknown [id number] 2.16.840.1.513901.3.579.2.1 73 1964 Unknown [id number] 2.16.840.1.292485.3.579.2.1 75 1964 Unknown [id number] 2.16.840.1.765395.3.579.2.1 259 1964 Unknown [id number] 2.16.840.1.087406.3.579.2.1 286 1964 Unknown [id number] 2.16.840.1.196428.3.579.2.1 286 1964 Unknown [id number] 2.16.840.1.154199.3.579.2.1 286 1964 Unknown [id number] 2.16.840.1.579698.3.579.2.1 286 1964 Unknown [id number] 2.16.840.1.898870.3.579.2.1 286 1964 Unknown [id number] 2.16.840.1.113397.3.579.2.1 286 1964 Unknown [id number] 2.16.840.1.847048.3.579.2.1 286 1964 Unknown [id number] 2.16.840.1.763537.3.579.2.7 27 1964 Unknown [id number] 2.16.840.1.332436.3.579.2.7 27 1964 Unknown [id number] 2.16.840.1.665395.3.579.2.7 27 1964 Unknown [id number] 2.16.840.1.245906.3.579.2.1 244 1964 Unknown [id number] 2.16.840.1.966351.3.579.2.1 244 1959 Unknown [id number] 1959 Unknown [id number] Unknown [id number] 2.16.840.1.264738.3.579.2.5 31 Social History Date Type Detail Facility Start: 08-19-2019 End: 08-14-2023 Tobacco smoking status NHIS Never smoker [place], [place] Start: 08-19-2019 End: 06-18-2023 Alcohol intake Ex-drinker (finding) [place], [place] Start: 1965 Sex Assigned At Not on file [place] Start: 06-18-2023 End: 09-05-2024 No alcohol use No alcohol use [facility] 250 DO Work Phone: Start: 08-19-2019 End: 08-14-2023 Tobacco use and exposure Smokeless tobacco non-user [facility] Work Phone: Start: 06-18-2023 End: 09-05-2024 Sex Assigned At Female [facility] Start: 1965 Sex Assigned At Female [facility] Patient Health Questionnaire 9 item (PHQ-9) total score [Reported] 0 SADI RODRIGUEZ [facility] Start: 08-14-2023 End: 09-05-2024 Alcohol intake Lifetime non-drinker (finding) [facility] Work Phone: Start: 08-04-2023 End: 09-05-2024 Exposure to SARS-CoV-2 (event) Not sure [facility] Start: 08-19-2024 Sex Female (finding) [facility] NEGATED: Highlighted row Denies Caffeine use Denies Caffeine use -[facility] 250 DO Work Phone: Medical Equipment Procedure [...] /State Functional Status Date Assessment Result Facility 08-05-2024 Functional Status N/A [facility] 04-10-2024 Functional Status N/A [facility] 06-02-2022 Functional Status N/A [facility] Clinical Notes 06-02-2022 to 09-05-2024 Celso Garibay, DO - 09/05/2024 9:20 AM ESTPatient InstructionsAttachments Note Date & Type Note Facility 09-05-2024 History of Present illness Narrative Subjective Jose Alberto Saleem is a 59 y.o. female Chief Complaint Follow-up 59-year-old female returns following acute coronary syndrome, with subsequent two-vessel intervention of the vein graft to the diagonal branch with long 3.5 x 38 mm [place] stent and mi'kmaq distal circumflex for in-stent restenosis with 3 x 18 mm Ray stent. LV function is preserved. WHEELER-LAD remains patent, mi'kmaq right coronary vein graft right coronary is chronically occluded (known from the past) and collateralized via left coronary system, and vein graft to the OM 2 is also occluded chronically however mi'kmaq circumflex is intact. Patient is otherwise stable and doing well, right groin is healed with minor bruising. Details of her intervention, medications, and exercise are reviewed. Recommendations, return to work in 1 week, consider cardiac rehabilitation, otherwise follow-up in 6 month Review of Systems All other systems reviewed and are negative. Vitals: 09/05/24 0953 BP: 118/80 BP Location: Left arm Patient Position: Sitting Pulse: 66 Weight: 77.1 kg (170 lb) Height: 1.6 m (5' 3 ) Objective Physical Exam Constitutional: Appearance: Normal appearance. HENT: Nose: Nose normal. Neck: Vascular: No carotid bruit. Cardiovascular: Rate and Rhythm: Normal rate. Pulses: Normal pulses. Heart sounds: Normal heart sounds. Pulmonary: Effort: Pulmonary effort is normal. Abdominal: General: Bowel sounds are normal. Palpations: Abdomen is soft. Musculoskeletal: General: Normal range of motion. Cervical back: Normal range of motion. Right lower leg: No edema. Left lower leg: No edema. Skin: General: Skin is warm and dry. Neurological: General: No focal deficit present. Mental Status: She is alert. Psychiatric: Mood and Affect: Mood normal. Behavior: Behavior normal. Thought Content: Thought content normal. Judgment: Judgment normal. Allergies Baclofen, Latex, Sulfa (sulfonamide antibiotics), Rosuvastatin, Sulfamethoxazole-trimethoprim, and Penicillins Current Medications Current Outpatient Medications: Aciphex EC tablet, Take 1 tablet (20 mg) by mouth 2 times a day., Disp: , Rfl: amLODIPine (Norvasc) 2.5 mg tablet, Take 1 tablet (2.5 mg) by mouth once daily., Disp: , Rfl: aspirin 81 mg EC tablet, take 1 tablet by mouth once daily, Disp: 90 tablet, Rfl: 3 calcium carbonate (CALCIUM 500 ORAL), Take 1 tablet by mouth once daily., Disp: , Rfl: cevimeline (Evoxac) 30 mg capsule, Take by mouth 3 times a day., Disp: , Rfl: citalopram (CeleXA) 40 mg tablet, Take 1 tablet (40 mg) by mouth once daily., Disp: , Rfl: clopidogrel (Plavix) 75 mg tablet, Take 1 tablet (75 mg) by mouth once daily., Disp: , Rfl: diclofenac sodium 3 % gel, twice a day., Disp: , Rfl: docusate sodium (Colace) 100 mg capsule, Take 1 capsule (100 mg) by mouth 2 times a day., Disp: , Rfl: estradiol (Estrace) 0.01 % (0.1 mg/gram) vaginal cream, Insert into the vagina once daily., Disp: , Rfl: fluticasone (Flonase) 50 mcg/actuation nasal spray, Administer 1 spray into affected nostril(s) 2 times a day., Disp: , Rfl: mirabegron (Myrbetriq) 50 mg tablet extended release 24 hr 24 hr tablet, Take 1 tablet (50 mg) by mouth once daily., Disp: , Rfl: mometasone (Elocon) 0.1 % cream, twice a day., Disp: , Rfl: multivit-min/ferrous fumarate (MULTI VITAMIN ORAL), Take 1 tablet by mouth 2 times a day., Disp: , Rfl: nitroglycerin (Nitrostat) 0.4 mg SL tablet, Place 1 tablet (0.4 mg) under the tongue every 5 minutes if needed for chest pain., Disp: 90 tablet, Rfl: 3 nystatin (Nyamyc) 100,000 unit/gram powder, apply topically to affected area twice a day if needed, Disp: , Rfl: tamsulosin (Flomax) 0.4 mg 24 hr capsule, Take 1 capsule (0.4 mg) by mouth once daily., Disp: , Rfl: vit C/E/Zn/coppr/lutein/zeaxan (PRESERVISION AREDS-2 ORAL), Take by mouth twice a day., Disp: , Rfl: Assessment/Plan 1. 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 S/P PTCA (percutaneous transluminal coronary angioplasty) 3. History of coronary artery bypass graft 4. Ischemic cardiomyopathy 5. Essential hypertension 6. Mixed hyperlipidemia 7. BMI 30.0-30.9,adult 8. Statin intolerance Scribe Attestation By signing my name below, Jasmyne Farmer LPN , Scribe attest that this documentation has been prepared under the direction and in the presence of Celso Garibay DO. Provider Attestation - Scribe documentation All medical record entries made by the Scribe were at my direction and personally dictated by me. I have reviewed the chart and agree that the record accurately reflects my personal performance of the history, physical exam, discussion and plan. documented in this encounter [facility] Work Phone: 09-05-2024 Instructions Jasmyne Salinas LPN - 09/05/2024 9:20 AM EST Please bring all medicines, vitamins, and herbal supplements with you when you come to the office. Prescriptions will not be filled unless you are compliant with your follow up appointments or have a follow up appointment scheduled as per instruction of your physician. Refills should be requested at the time of your visit. BMI was above normal measurement. Current weight: 77.1 kg (170 lb) Weight change since last visit (-) denotes wt loss -2 lbs Weight loss needed to achieve BMI 25: 29.2 Lbs Weight loss needed to achieve BMI 30: 1 Lbs Provided instructions on dietary changes Provided instructions on exercise. May RTW 09/15/2024,no restrictions The following attachments cannot be sent through Care Everywhere.Heart Healthy Diet (Dominican)documented in this encounter [facility] Work Phone: 08-19-2024 Evaluation note Diagnosis Onset Date Resolution Atypical chest pain acute Novem rocky 2023 11:18pm [facility] Work Phone: 1(441) 222-337611-13-2024 History of Present illness Narrative* Celso Garibay DO - 08/13/2024 11:30 AM EST Subjective Jose Alberto Saleem is a 59 y.o. female Chief Complaint Annual Exam 59-year-old female returns for annual visit, she just got back from [facility] from vacation last evening and is doing very well from a cardiovascular standpoint. She still has complaints of episodic pancreatitis and is about to see her surgeon shortly. She had history of pancreatitis last year mention in our notes with mild hepatic enzyme elevation. She has no angina or nitrate usage or recurrent cardiovascular events/hospitalizations She had a brief episode of pancreatitis that was suspected with minor lipase elevation earlier this year but potentially related to her previous history of Romina-en-Y gastric bypass. Unfortunately, she lost her this past year due to chronic recurring illness. She has a history of remote CABG, remote PR, remote PCI's before and after her CABG and normal stress imaging in 2017. Recommendations, discontinue atorvastatin, follow-up in 1 year, she may potentially be able to reinitiate statin after 12 weeks as long as liver enzymes and pancreatitis have abated Review of Systems Cardiovascular: Positive for palpitations. All other systems reviewed and are negative. Vitals: 08/13/24 1221 BP: (!) 138/94 BP Location: Right arm Patient Position: Sitting Pulse: 76 Weight: 78 kg (172 lb) Height: 1.6 m (5' 3 ) Objective Physical Exam Constitutional: Appearance: Normal appearance. HENT: Nose: Nose normal. Neck: Vascular: No carotid bruit. Cardiovascular: Rate and Rhythm: Normal rate. Pulses: Normal pulses. Heart sounds: Normal heart sounds. Pulmonary: Effort: Pulmonary effort is normal. Abdominal: General: Bowel sounds are normal. Palpations: Abdomen is soft. Musculoskeletal: General: Normal range of motion. Cervical back: Normal range of motion. Right lower leg: No edema. Left lower leg: No edema. Skin: General: Skin is warm and dry. Neurological: General: No focal deficit present. Mental Status: She is alert. Psychiatric: Mood and Affect: Mood normal. Behavior: Behavior normal. Thought Content: Thought content normal. Judgment: Judgment normal. Allergies Baclofen, Latex, Sulfa (sulfonamide antibiotics), Rosuvastatin, Sulfamethoxazole-trimethoprim, and Penicillins Current Medications Current Outpatient Medications: Aciphex EC tablet, Take 1 tablet (20 mg) by mouth 3 times a day., Disp: , Rfl: aspirin 81 mg EC tablet, take 1 tablet by mouth once daily, Disp: 90 tablet, Rfl: 3 calcium carbonate (CALCIUM 500 ORAL), Take 1 tablet by mouth once daily., Disp: , Rfl: cevimeline (Evoxac) 30 mg capsule, Take by mouth 3 times a day., Disp: , Rfl: citalopram (CeleXA) 40 mg tablet, Take 1 tablet (40 mg) by mouth once daily., Disp: , Rfl: diclofenac sodium 3 % gel, twice a day., Disp: , Rfl: docusate sodium (Colace) 100 mg capsule, Take 1 capsule (100 mg) by mouth 2 times a day., Disp: , Rfl: estradiol (Estrace) 0.01 % (0.1 mg/gram) vaginal cream, Insert into the vagina once daily., Disp: ,Rfl: fluticasone (Flonase) 50 mcg/actuation nasal spray, Administer 1 spray into affected nostril(s) 2 times a day., Disp: , Rfl: mirabegron (Myrbetriq) 50 mg tablet extended release 24 hr 24 hr tablet, Take 1 tablet (50 mg) by mouth once daily., Disp: , Rfl: mometasone (Elocon) 0.1 % cream, twice a day., Disp: , Rfl: multivit-min/ferrous fumarate (MULTI VITAMIN ORAL), Take 1 tablet by mouth 2 times a day., Disp: , Rfl: nitroglycerin (Nitrostat) 0.4 mg SL tablet, Place 1 tablet (0.4 mg) under the tongue every 5 minutes if needed for chest pain., Disp: 90 tablet, Rfl: 3 nystatin (Nyamyc) 100,000 unit/gram powder, apply topically to affected area twice a day if needed,Disp: , Rfl: tamsulosin (Flomax) 0.4 mg 24 hr capsule, Take 1 capsule (0.4 mg) by mouth once daily., Disp: , Rfl: vit C/E/Zn/coppr/lutein/zeaxan (PRESERVISION AREDS-2 ORAL), Take by mouth twice a day., Disp: , Rfl: Assessment/Plan 1. Atherosclerosis of coronary artery of mi'kmaq heart without angina pectoris, unspecified vessel or lesion type Follow Up In Cardiology 2. History of coronary artery bypass graft Follow Up In Cardiology 3. Essential hypertension, benign 4. Hyperlipidemia, unspecified hyperlipidemia type 5. Acute pancreatitis, unspecified complication status, unspecified pancreatitis type ([facility]) Scribe Attestation By signing my name below, Bettie Farmer Josh [employer] Scribrene attest that this documentation has been prepared under the direction and in the presence of Haydee Garibay DO. Provider Attestation - Scribe documentation All medical record entries made by the Scribe were at my direction and personally dictated by me. Ihave reviewed the chart and agree that the record accurately reflects my personal performance of the history, physical exam, discussion and plan. [facility] Phone: 1(780) 133-271711-13-2024 Instructions* Patient Instructions* Bettie Ugalde LPN - 08/13/2024 11:30 AM EST Please bring all medicines, vitamins, and herbal supplements with you when you come to the office. Prescriptions will not be filled unless you are compliant with your follow up appointments or have a follow up appointment scheduled as per instruction of your physician. Refills should be requested at the time of your visit. BMI was above normal measurement. Current weight: 78 kg (172 lb) Weight change since last visit (-) denotes wt loss 11 lbs Weight loss needed to achieve BMI 25: 31.2 Lbs Weight loss needed to achieve BMI 30: 3 Lbs Provided instructions on dietary changes Provided instructions on exercise. [facility] Phone: 1(156) 529-937911-05-2024 Hospital Discharge instructions Patient Education 08/05/2024 12:20:10 Kidney Stones, Djbv-mq-Irog Kidney Stones Kidney stones are rock-like masses [...] pee. The stone usually leaves your body through your pee. A doctor may need to take out the stone. What are the causes? Kidney stones may be caused by: Too much calcium in the body. This may be caused by too much parathyroid hormone in the blood. Uric acid crystals in the bladder. The body makes uric acid when you eat certain foods. Narrowing of one or both of the ureters. A kidney blockage that you were born with. Past surgery on the kidney or the ureters. What increases the risk? You are more likely to develop this condition if: You have had a kidney stone in the past. Other people in your family have had kidney stones. You do not drink enough water. You eat a diet that is high in protein, salt (sodium), or sugar. You are very overweight (obese). What are the signs or symptoms? Symptoms of a kidney stone may include: Pain in the side of the belly, right below the ribs. Pain usually spreads to the groin. Needing to pee often or right away. Pain when peeing. Blood in your pee. Feeling like you may vomit (nauseous). Vomiting. Fever and chills. How is this treated? Treatment depends on the size, location, and makeup of the kidney stones. The stones will often pass out of the body when you pee. You may need to: Drink more fluid to help pass the stone. ?In some cases, you may be given fluids through an IV tube at the hospital. Take medicine for pain. Change your diet to help keep kidney stones from coming back. Sometimes, you may need: A procedure to break up kidney stones using a beam of light (laser) or shock waves. Surgery to remove the kidney stones. Follow these instructions at home: Medicines Take nbsy-ogi-uikqjkk and prescription medicines only as told by your doctor. Ask your doctor if the medicine prescribed to you requires you to avoid driving or using machinery. Eating and drinking Drink enough fluid to keep your pee pale yellow. ?You may be told to drink at least 8 10 glasses of water each day. This will help you pass the stone. If told by your doctor, change your diet. You may be told to: ?Limit how much salt you eat. ?Eat more fruits and vegetables. ?Limit how much meat, poultry, fish, and eggs you eat. Follow instructions from your doctor about what you may eat and drink. General instructions Collect pee samples as told by your doctor. You may need to collect a pee sample: ?24 hours after a stone comes out. ?8 12 weeks after a stone comes out, and every 6 12 months after that. Strain your pee every time you pee. Use the strainer that your doctor recommends. Do not throw out the stone. Keep it so that it can be tested by your doctor. Keep all follow-up visits. You may need X-rays and ultrasounds to make sure the stone has come out. How is this prevented? To prevent another kidney stone: Drink enough fluid to keep your pee pale yellow. This is the best way to prevent kidney stones. Eat healthy foods. Avoid certain foods as told by your doctor. You may be told to eat less protein. Stay at a healthy weight. Where to find more information National Kidney Foundation (NKF): kidney.org [facility] (UCF): urologyhealth.org Contact a doctor if: You have pain that gets worse or does not get better with medicine. Get help right away if: You have a fever or chills. You get very bad pain. You get new pain in your belly. You faint. You cannot pee. This information is not intended to replace advice given to you by your health care provider. Make sure you discuss any questions you have with your health care provider. Document Revised: 05/11/2023 Document Reviewed: 05/11/2023 [employer] Patient Education 2023 [employer]. Follow Up Care 06/06/2024 11:10:21 With:SALENA REDDY, JENNIFER López, URL Address: When:1 year [facility] 11-05-2024 NotePatient Education Urology Kidney Stones Kidney stones are rock-like masses that form inside of the kidneys. Kidneys are organs that make pee (urine). A kidney stone may move into other parts of the urinary tract, including: ??? The tubes that connect the kidneys to the bladder (ureters). ??? The bladder. ??? The tube that carries urine out of the body (urethra). Kidney stones can cause very bad pain and can block the flow of pee. The stone usually leaves your body through your pee. A doctor may need to take out the stone. What are the causes? Kidney stones may be caused by: ??? Too much calcium in the body. This may be caused by too much parathyroid hormone in the blood. ??? Uric acid crystals in the bladder. The body makes uric acid when you eat certain foods. ??? Narrowing of one or both of the ureters. ??? A kidney blockage that you were born with. ??? Past surgery on the kidney or the ureters. What increases the risk? You are more likely to develop this condition if: ??? You have had a kidney stone in the past. ??? Other people in your family have had kidney stones. ??? You do not drink enough water. ??? You eat a diet that is high in protein, salt (sodium), or sugar. ??? You are very overweight (obese). What are the signs or symptoms? Symptoms of a kidney stone may include: ??? Pain in the side of the belly, right below the ribs. Pain usually spreads to the groin. ??? Needing to pee often or right away. ??? Pain when peeing. ??? Blood in your pee. ??? Feeling like you may vomit (nauseous). ??? Vomiting. ??? Fever and chills. How is this treated? Treatment depends on the size, location, and makeup of the kidney stones. The stones will often pass out of the body when you pee. You may need to: ??? Drink more fluid to help pass the stone. ? In some cases, you may be given fluids through an IV tube at the hospital. ??? Take medicine for pain. ??? Change your diet to help keep kidney stones from coming back. Sometimes, you may need: ??? A procedure to break up kidney stones using a beam of light (laser) or shock waves. ??? Surgery to remove the kidney stones. Follow these instructions at home: Medicines ??? Take cnnj-ifi-lniinrr and prescription medicines only as told by your doctor. ??? Ask your doctor if the medicine prescribed to you requires you to avoid driving or using machinery. Eating and drinking ??? Drink enough fluid to keep your pee pale yellow. ? You may be told to drink at least 8?10 glasses of water each day. This will help you pass the stone. ??? If told by your doctor, change your diet. You may be told to: ? Limit how much salt you eat. ? Eat more fruits and vegetables. ? Limit how much meat, poultry, fish, and eggs you eat. ??? Follow instructions from your doctor about what you may eat and drink. General instructions ??? Collect pee samples as told by your doctor. You may need to collect a pee sample: ? 24 hours after a stone comes out. ? 8?12 weeks after a stone comes out, and every 6?12 months after that. ??? Strain your pee every time you pee. Use the strainer that your doctor recommends. ??? Do not throw out the stone. Keep it so that it can be tested by your doctor. ??? Keep all follow-up visits. You may need X-rays and ultrasounds to make sure the stone has come out. How is this prevented? To prevent another kidney stone: ??? Drink enough fluid to keep your pee pale yellow. This is the best way to prevent kidney stones. ??? Eat healthy foods. ??? Avoid certain foods as told by your doctor. You may be told to eat less protein. ??? Stay at a healthy weight. Where to find more information ??? National Kidney Foundation (NKF): kidney.org ??? Urology Care Foundation (UCF): urologyhealth.org Contact a doctor if: ??? You have pain that gets worse or does not get better with medicine. Get help right away if: ??? You have a fever or chills. ??? You get very bad pain. ??? You get new pain in your belly. ??? You faint. ??? You cannot pee. This information is not intended to replace advice given to you by your health care provider. Make sure you discuss any questions you have with your health care provider. Document Revised: 05/11/2023 Document Reviewed: 05/11/2023 Elsevier Patient Education ? 2023 [employer] 04-10-2024 Hospital Discharge instructions Patient Education 04/10/2024 16:08:23 Kidney Stones, Plql-wb-Ojlv Kidney Stones Kidney stones are rock-like masses [...] Follow these instructions at home: Medicines Take qgtm-jmw-tlqqgvr and prescription medicines only as told by [...] provider. Document Revised: 05/22/2022 Document Reviewed: 05/22/2022 [employer] Patient Education 2022 [employer]. Follow Up Care 03/10/2024 08:31:33 With:JENNIFER MARTINO PA-C, URL Address: [address] [place] [address] When:3 months [facility] NotePatient Education Urology Kidney Stones Kidney stones are [...] the ribs (flank pain). Pain usually spreads (radiates)to the groin. ? Needing to pee often [...] these instructions at home: Medicines ? Take kchg-ozy-xptnbrl and prescription medicines only as told by [...] provider. Document Revised: 05/22/2022 Document Reviewed: 05/22/2022 [employer] Patient Education ? 2022 [employer] 02-27-2024 Note Attestation signed by Danielle Cesar MD at 02/27/2024 2:30 PM I personally saw and examined the patient on the same date of service as resident/fellow . I discussed the findings and therapeutic plan with the resident/fellow . I agree with the documentation, except for any edits/updates below. [facility] Gastroenterology New Patient Visit - History & [...] pectoris (CMS/HCC) Atherosclerosis of coronary artery of mi'kmaq heart without angina pectoris Cellulitis of right [...] Mother Gretta Hyperlipidemia Father Munoz Hyperlipidemia Brother Pocola Heart attack Brother Luis Manuel SOCIAL HISTORY: Social History Tobacco Use Smoking [...] negative HEENT: negative RESPI (more content not included)...[facility] 08-14-2023 History of Present illness Narrative* Celso Garibay, DO - 08/14/2023 3:00 PM EST Subjective Jose Alberto Saleem is a 58 y.o. female Chief Complaint Annual Exam 58-year-old female returns for follow-up she is doing well from a cardiovascular standpoint with nohospitalizations, syncope, nitrate usage. She had a brief episode of pancreatitis that was suspected with minor lipase elevation earlier this year but potentially related to her previous history ofRoux-en-Y gastric bypass. Unfortunately, she lost her this past year due to chronic recurring illness. She has a history of remote CABG, remote PR, remote PCI's before and after her CABG [...] to affected area twice a day if needed,Disp: , Rfl: tamsulosin (Flomax) 0.4 mg 24 hr capsule, Take 1 capsule (0.4 mg) by mouth once daily., Disp: , Rfl: vit C/E/Zn/coppr/lutein/zeaxan (PRESERVISION AREDS-2 ORAL), Take by mouth twice a day., Disp: , Rfl: Assessment/Plan 1. Atherosclerosis of coronary artery of mi'kmaq heart without angina pectoris, unspecified vessel or lesion type 2. History of coronary artery bypass graft 3. Ischemic cardiomyopathy 4. Essential hypertension, benign documented in this [facility] Work Phone: 1(622) 173-328811-14-2023 Instructions* Patient Instructions* Ej Braswell MA - 08/14/2023 3:00 PM [...] time of your visit. documented in this [facility] Work Phone: 1(783) 619-506809-18-2023 Hospital Discharge instructions* Discharge Instructions* Lissa Ocasio PA-C - 06/18/2023 2:07 PM [...] call if excessive. Call the office at [phone] ([place]) [phone] ([place]) for an appointment in 2 weeks. [facility] History of Present illness Narrative* Sejal Pro RN - 06/06/2023 11:34 AM EDT Patient instructed on the pre-operative, intra-operative, and [...] surgery. Pt states she was instructed to stopaspirin 7 days prior to surgery per Dr. Tripathi's instructions. Pt will complete EKG day of her pre-opvisit with Dr. Tripathi. [facility] Evaluation note* Encounter Date Diagnosis Assessment Notes Treatment Notes Treatment Clinical Notes Nov, Elevated liver function tests (ICD-10 - R94.5) [facility] Other 02-02-2023 Procedure [facility]02-01-2023 Procedure [facility]01-24-2023 Evaluation note* Encounter Date Diagnosis Assessment Notes Treatment Notes Treatment Clinical Notes Oct, Abdominal pain (ICD-10 - R10.9) Oct, Common bile duct dilatation (ICD-10 - K83.8) Oct, Elevated liver enzymes (ICD-10 - R74.8) Oct, Constipation (ICD-10 - K59.00) Colonoscopy Start Miralax daily after colonoscopy. Titration dosing discussed with patient. Oct, Colon cancer screening (ICD-10 - Z12.11) [facility] Other 01-04-2023 NotePROGRESS NOTE NOTE DATE: 10/04/2022 CHIEF COMPLAINT: Abdominal pain. HISTORY OF PRESENT ILLNESS: The patient is a 57-year-old female with a history of dyslipidemia and gastric bypass surgery, who has been having increasing abdominal pain and flank pain. She was seen yesterday at the [facility] for epigastric and upper abdominal [...] Prophylaxis: Lovenox. DISPOSITION: Home when medically stable.[id number] Discharge instructions Patient Education 06/02/2022 08:51:52 Kidney Stones, Mvac-kk-Zuqb Kidney Stones Kidney stones are rock-like masses [...] Follow these instructions at home: Medicines Take lwqn-qvd-ihtskby and prescription medicines only as told by [...] 03/05/2009 Document Revised: 02/03/2020 Document Reviewed: 02/03/2020 [employer] Patient Education 2019 [employer]. Follow Up Care 05/27/2021 09:10:08 With:LORENA STRAUSS, Santiago Guzman, URL Address: [address] [place], [place] [id number]- When: Unknown [facility] evaluation + Plan note Future Appointments Appointment Date:06/01/2023 08:00:00 AM Scheduled Provider:Santiago CARRILLO MD Location:[facility] Appointment Type:URO Office Visit [facility] evaluation + Plan note Future Appointments Appointment Date:04/10/2024 03:00:00 PM Scheduled Provider:JENNIFER MARTINO PA-C Location:[facility] Appointment Type:URO Office Visit [facility] evaluation + Plan note Future Scheduled Tests Radiology* XR Abdomen 1 View 08/05/25 [facility] evaluation note* Diagnosis Women's annual routine gynecological examination documented in this encounter [employer] Work Phone: evaliaykba noteNo assessment information available [facility] Work Phone: Evaluation noteNo InformationNort Trippin In Other Evaluation note* Diagnosis Post-menopausal bleeding Postmenopausal bleeding Inclusion cyst Sebaceous cyst documented [facility] Diagnosis Atherosclerosis of coronary artery of mi'kmaq heart without angina pectoris, unspecified vessel or lesion type 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 Ischemic cardiomyopathy Other specified forms of chronic ischemic heart disease Essential hypertension, benign documented in this encounter [facility] Work Phone: Evaluation note* Diagnosis Atherosclerosis of coronary artery of mi'kmaq heart without angina pectoris, unspecified vessel or lesion type 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 Essential hypertension, benign Hyperlipidemia, unspecified hyperlipidemia type Acute pancreatitis, unspecified complication status, unspecified pancreatitis type ([facility]) documented in this encounter [facility] Work Phone: Evaluation note* Diagnosis Atherosclerosis of coronary artery bypass graft of mi'kmaq heart without angina pectoris S/P PTCA (percutaneous transluminal coronary angioplasty) Postsurgical percutaneous transluminal coronary angioplasty status 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 Ischemic cardiomyopathy Other specified forms of chronic ischemic heart disease Essential hypertension Unspecified essential hypertension Mixed hyperlipidemia BMI 30.0-30.9,adult Statin intolerance documented in this encounter [facility] Work Phone: History and physical note Author Evert [facility] November 01, 2022 12:40pm Note Date/Time November 01, 2022 1 2:40pm [facility] [address] [place] [address] Gastroenterology H&P Signed Patient: Jose Alberto Saleem MR#: [id number] : 1965 Acct:[id number] Age/Sex: 57 / F Adm Date: 3 Loc: Room: Type: [facility] Attending Dr: Evert Bruno MD Copies [...] signed by Evert Bruno MD> 11/01/22 1240 [facility] Work Phone: History and physical note Author Evert [facility] November 02, 2022 2:14pm Note Date/Time November 02, 2022 2 :14pm [facility] [address] [place] [address] Gastroenterology H&P Signed Patient: Jose Alberto Saleem MR#: [id number] : 1965 Acct:[id number] Age/Sex: 57 / F Adm Date: 3 Loc: Room: Type: [facility] Attending Dr: Evert Bruno MD Copies [...] signed by Evert Bruno MD> 11/02/22 1414 [facility] Work Phone: History general Narrative - Reported* Type Description Date Medical History impaired fasting glucose Medical History heart disease, PR stents, CABG Medical History Hypertension Medical History hyperlipidemia 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 Surgical History CABG remote history Surgical History gastric bypass 2017 Surgical History multiple kidney stones removed Surgical History appendectomy Surgical History cyst on ovarian removed Surgical History bilateral carpe tunnel surgery 2021 Surgical History cholecystectomy Hospitalization History see surgical hx [place] Trippin In Other Hospital course Narrative No data available for this section [facility] Discharge instructions Additional Instructions DISCHARGE INSTRUCTIONS [...] NOT operate machinery such as power tools, [employer] mowers, [employer] blowers, sewing machines, etc. for 24 hours. [...] problems. -Follow up with PCP. -Office number [phone]. [facility] Work Phone: Hospital Discharge instructions Additional [...] problems. -Follow up with PCP. -Office number [phone]. [facility] Work Phone: Hospital Discharge instructions No data available for this section [facility] progress note No data available for this section [facility] reason for referral (narrative)* Consultation (Routine) - Authorized Specialty Diagnoses / Procedures Referred By Manfred flynn Referred To Contact Cardiology Diagnoses Atherosclerosis of coronary artery of mi'kmaq heart without angina pectoris, unspecified vessel or lesion type History of coronary artery bypass graft Procedures Follow Up In Cardiology Celso Garibay DO [address] [address] Celso Garibay DO [address] [place] [address], [address] [address] Referral ID Status Reason Start Date Expiration Date V isits Requested Visits Authorized [id number] Authorized 08/14/2023 08/13/2024 1 1 [facility] Work Phone: Summary Purpose Family History [...] Recorded Date/T cb father Heart disease Unknown History of coronary artery bypass surgery Unknown Myocardial infarction Unknown mother Heart disease Unknown Malignant neoplasm Unknown brother Heart disease Unknown grandparent Cerebrovascular accident (CVA) Unknown brother History of coronary artery bypass surgery Unknown Cerebrovascular accident (CVA) Unknown Advance Directives No Advanced Directives Records FoundDocuments on File Type Date Recorded Patient Interventionist Expl anation Advance Directives and Living Will Power of Accounts Receivable Specialist Documents on File Type Date Recorded Patient Interventionist Expl anation ACP-Advance Directive ACP-Power of Accounts Receivable Specialist Advance Directive Response Recorded Date/ Time [...] She has known history of prior inferior PR, prior stenting, priorthree-vessel CABG, subsequent PCI of [...] adverse reactions to other medications, hypotension. * [place] Heart Association is class I * Recommendations, [...] She has a history of prior inferior PR, prior PCI with subsequent three-vessel CABG and [...] She has a history of prior inferior PR, prior PCI with subsequent three-vessel CABG and [...] abd pain R10.9 K83.8 R74.8 Fatty Liver Chief Complaint Admit Date Chest Pain August 18, 2024 11:18pm Reason for Visit Admit Date Atypical chest pain August 18, 2024 11:18pm Additional Source Comments INFORMATION SOURCE (unrecogn ized section and content) DATE CREATED AUTHOR 03/26/2018 [facility] DATE CREATED AUTHOR AUTHOR'S ORGANIZ ATION 03/26/2018 [facility] DATE CREATED AUTHOR AUTHOR'S ORGANIZ ATION 08/02/2022 [facility] dical Specialist DATE CREATED AUTHOR AUTHOR'S ORGANIZ ATION 08/17/2022 [employer] DATE CREATED AUTHOR AUTHOR'S ORGANIZ ATION 10/17/2022 [facility] DATE CREATED AUTHOR AUTHOR'S ORGANIZ ATION 06/23/2023 [facility] DATE CREATED AUTHOR AUTHOR'S ORGANIZ ATION 07/16/2023 [facility] DATE CREATED AUTHOR AUTHOR'S ORGANIZ ATION 09/15/2023 [facility] dical Specialists [facility] DATE CREATED AUTHOR AUTHOR'S ORGANIZ ATION 01/19/2024 [facility] DATE CREATED AUTHOR AUTHOR'S ORGANIZ ATION 03/03/2024 [facility] DATE CREATED AUTHOR AUTHOR'S ORGANIZ ATION 03/07/2024 [facility] DATE CREATED AUTHOR AUTHOR'S ORGANIZ ATION 08/06/2024 [facility] DATE CREATED AUTHOR AUTHOR'S ORGANIZ ATION 09/13/2024 [facility] DATE CREATED AUTHOR AUTHOR'S ORGANIZ ATION 09/15/2024 [facility] Care Teams (unrecognized sec tion and content) Team Status: Active Member Role Status Dates Ashley Grigsby MD Primary Care Provider Active Team Status: Active Member Role Status Dates Ashley Grigsby MD Primary Care Provider Active Start: August 18, 2024 Lynnette Chapman MD Emergency Provider Active Start: August 18, 2024 Donis Arroyo , Admit Provider, Atte nding Provider Active Start: August 18, 2024 Team Status: Inactive Member Role Status Dates Ashley Grigsby MD Primary Care Provider Active Evert Bruno MD Attending Provider Active Transportation Director Relationship Specialty Start Date End Date Ashley Grigsby MD [address] [place] [address] PCP - General Family Medicine 08/19/19 Transportation Director Relationship Specialty Start Date End Date Ashley Grigsby MD [address] [place] [address] PCP - General Family Medicine 08/19/19 Transportation Director Relationship Specialty Start Date End Date Ashley Grigsby MD [address] [place] [address] PCP - General 08/17/21 Transportation Director Relationship Specialty Start Date End Date Ashley Grigsby MD [address] [place] [address] PCP - General 08/17/21 Transportation Director Relationship Specialty Start Date End Date Ashley Grigsby MD [address] [place] [address] PCP - General 08/17/21 Anita Hammonds, chef saucierResearch Director 08/22/24 REASON FOR VISIT (unrecogniz ed section and content) Specialty Diagnoses / Procedures Referred By Contfélix t Referred To Contact Diagnoses Post-menopausal bleeding Inclusion cyst Post-menopausal bleeding [N95.0] Inclusion cyst [L72.0] Procedures AR HYSTEROSCOPY BX ENDOMETRIUM&/POLYPC W/WO D&C AR DESTRUCTION BENIGN LESIONS UP TO 14 DILATATION AND CURETTAGE HYSTEROSCOPY-REMOVAL OF INCLUSION CYST Gaby Phillips, DO [address] [place] [address] [facility] [address] [place] [address] Referral ID Status Reason Start Date Expiration Date Visits Re quested Visits Authorized [id number] 1 1 Reason Comments Annual Exam 1yr Specialty Diagnoses / Procedures Referred By Manfred flynn Referred To Contact Cardiology Diagnoses Atherosclerosis of coronary artery of mi'kmaq heart without angina pectoris, unspecified vessel or lesion type History of coronary artery bypass graft Procedures Follow Up In Cardiology [place] Celso Pam, 703 [facility] 2, [address] [address] Phone: tel: fax: Celso Garibay, DO 703 [facility] 2, [address] [address] Phone: tel: fax: Referral ID Status Reason Start Date Expiration Date V isits Requested Visits Authorized [id number] Authorized 08/14/2023 08/13/2024 1 1 Reason Comments Follow-up [facility] discharge 08/22 Ordered Prescriptions (unrec ognized section and content) [...] (NoRateChange - Provider: Lynnette Walden APRN - BLEACH PLANT OPERATOR)[id number] (Paused - Provider: OTONIEL Fragoso CRNA - [...] = 20 mL/lumen, Pre-op (day of surgery) Goals (unrecognized section and content) Goals may be documented in a n alternate section FOR RECORDS PERTAINING TO PATIENTS WHO ARE [...] BE BASED ON THE PRIMARY CLINICAL RECORDS. [employer] [facility]. provides no warranty or guarantee of the accuracy or completeness of information in this document.
[2024-09-29 08:56] LABS: Alanine Aminotransferase 52 U/L (14-59); Albumin Globulin Ratio 1.1; Alkaline Phosphatase 118 U/L (46-116); Amylase 295 U/L (25-115); Anion Gap 8.8; Aspartate Amino Transferase 30 U/L (15-37); BUN Creatinine Ratio 21.9; Bilirubin Total 0.5 mg/dL (0.2-1.0); Calcium 9.8 mg/dL (8.5-10.1); Carbon Dioxide 35.4 mmol/L (21.0-32.0); Chloride 103 mmol/L (98-107); Chol HDL Ratio 4.1; Cholesterol 232 mg/dL (<=200); Estimated GFR (African America >60 (>=60 mL/min/1.73m^2); Estimated GFR (Non-African Ame >60 (>=60 mL/min/1.73m^2); Globulin 3.5 g/dL; Glucose 97 mg/dL (74-106); HDL Cholesterol 56 mg/dL (40-60); Potassium 4.2 mmol/L (3.5-5.1); Sodium 143 mmol/L (136-145); Total Protein 7.5 g/dL (6.4-8.2); Triglycerides 205 mg/dL (<=150)
== END 2024-09-29 08:25 | disposition home or self-care (01) ==
LOC: LAB 08:26
PROVIDERS: PCP Family Medicine; Visit Provider Family Medicine
DX: I25.10 Atherosclerotic heart disease of native coronary artery without angina pectoris (principal); I10 Essential (primary) hypertension; E78.5 Hyperlipidemia, unspecified
CPT/HCPCS: 36415; 80053; 80061; 82150; 83690

== ENCOUNTER 2024-09-30 17:05 | Inpatient (IN) | payer BC, SELFPAY ==
[2024-09-30] VITALS (10 sets, daily range): BP systolic 130–166; BP diastolic 78–90; PULSE 61–75; TEMP 36.5–36.6; O2SAT 94–100; BMI 29.2; BMI 29.9
--- OUTSIDE RECORDS SUMMARY | 2024-09-30 17:17 | XMS_ITS | CCD ---
Author Organization [facility] Care Team Providers Care Casting Assistant Name Role Phone UNKNOWN, PROVIDER Unavailable Unavailable ASHLEY GRIGSBY Unavailable Unavailable UNKNOWN, PROVIDER Unavailable Unavailable ASHLEY GRIGSBY Unavailable Unavailable Ashley Grigsby Primary Care Provider Ashley Grigsby Unavailable Unavailable Unavailable Ashley Grigsby MD Primary Care Provider [phone] Unavailable Unavailable Ashley Grigsby Primary Care [...] Unavailable MD Ashley Grigsby Primary Care Provider [phone] MD Evert Bruno Attending Provider Evert Bruno Unavailable MD Ashley Grigsby Primary Care Provider [phone] MD Evert Bruno Attending Provider [phone] Ashley Grigsby MD Primary Care Provider GABY PHILLIPS Admitting Unavail able GABY PHILLIPS Attending Unavail able SEB ASHLEY Tyree Primary Care Unavailable SEBASHLEY Tyree Primary Care Unavailable Ashley Grigsby MD Primary Care Provider [phone] ALINA JAVIER Attending Unavailable STEPHANIE BERGER Attending [...] Provider Ari STRAUSS, Lynnette Guzman Emergency Provider [phone] Donis Arroyo DO Admit Provider Donis Arroyo DO Attending Provider Anita Hammonds [...] Allergy Other (See Comments), Shortness of breath [place], [place] (20 sources) Latex; Translations: [LATEX] Propensity to adverse reactions to drug Anaphylaxis, Shortness Of Breath, Anaphylaxis (disorder) [place] (15 sources) Penicillins; Translations: [penicillins] Propensity to adverse reactions to drug Hives, Anaphylaxis (disorder) [place] (3 sources) rosuvastatin Drug Allergy 019 [place], [place] (20 sources) Sulfamethoxazole / Trimethoprim; Translations: [Bactrim TABS] Drug Allergy 019 [place], [place] (11 sources) natural latex rubber Allergy to substance (finding) Shortness of breath [facility] [employer] 250 DO Work Phone: (11 sources) Penicillins; Translations: [Penicillins] Allergy to drug (finding) Rash [facility] [employer] 250 DO Work Phone: (18 sources) rosuvastatin; Translations: [Crestor TABS] Drug Allergy 023 Elevated liver enzymes level (finding), Other [facility] (16 sources) Sulfonamides (Antibiotic); Translations: [Sulfa Drugs] Allergy to drug (finding) [facility] (13 sources) levoFLOXacin; Translations: [levofloxacin] Drug Allergy 017 Other (See Comments), Candidiasis (disorder) [facility] [employer] Phone: (4 sources) Phenazopyridine; Translations: [PHENAZOPYRIDINE HCL] Drug Allergy 006 [facility] Work Phone: (3 sources) Simvastatin; Translations: [SIMVASTATIN] Drug Allergy 006 [facility] Work Phone: (2 sources) Sulfonamides (Antibiotic) Propensity to adverse reactions to drug 022 Other (See Comments) [employer] (8 sources) Tobramycin; Translations: [tobramycin] Drug Allergy 023 Eruption of skin (disorder) [facility] (1 source) Baclofen Drug Allergy [facility] Rep[facility] (1 source) Latex Drug allergy (disorder) [facility] (5 sources) levoFLOXacin; Translations: [Levaquin] Drug Allergy thrush [facility] Repository (1 source) Penicillins Drug allergy (disorder) [facility] (1 source) rosuvastatin Drug Allergy [facility] Rep[facility] (1 source) Sulfonamides (Antibiotic) Drug allergy (disorder) [facility] Rep[facility] (10 sources) rosuvastatin; Translations: [ROSUVASTATIN] Drug Allergy 017 Gastrointestinal Upset [facility] (5 sources) Sulfamethoxazole; Translations: [sulfamethoxazole] Drug Allergy 023 Hives, Hives, ([place]) 08/08/2011 [facility] (7 sources) Trimethoprim; Translations: [TRIMETHOPRIM] Drug Allergy 023 Hives, Hives, ([place]) 08/08/2011 [facility] (6 sources) Fenofibrate; Translations: [FENOFIBRATE] Drug Allergy 009 ([place]) 08/08/2011 [facility] (3 sources) Penicillin Drug Allergy ([place]) 08/08/2011 [employer] Other (6 sources) Substance with sulfonamide structure and antibacterial mechanism of action (substance) Drug allergy 023 Shortness of breath [employer] [facility] Other (4 sources) Penicillins Propensity to adverse reactions to drug Hives, Rash [facility] (1 source) Tobramycin Drug Allergy 023 Rash [facility] (3 sources) Fenofibrate; Translations: [FENOFIBRATE MICRONIZED] Drug Allergy 009 [facility] Repository (6 sources) Sulfonamides (Antibiotic); Translations: [SULFA (SULFONAMIDE ANTIBIOTICS)] Propensity to adverse reactions to drug (disorder) Unknown Reaction [facility] Repository (1 source) fluvastatin; Translations: [FLUVASTATIN] Drug Allergy [facility] Repository (1 source) natural latex rubber; Translations: [LATEX, NATURAL RUBBER] Propensity to adverse reactions to drug (disorder) [facility] Repository (1 source) Phenazopyridine; Translations: [PHENAZOPYRIDINE] Drug Allergy [facility] Repository (1 source) Baclofen Drug Allergy [facility] Repository (1 source) Fenofibrate Drug Allergy [facility] Repository (1 source) Latex Drug allergy (disorder) [facility] Repository (1 source) levoFLOXacin Drug Allergy [facility] Repository (1 source) Penicillins Drug allergy (disorder) [facility] Repository Medications Current Medications Medication Drug [...] Atherosclerosis of coronary artery bypass graft of [place] heart without angina pectoris , History of [...] Active Start: 11-01-2022 take 4 tablets by [facility] once daily Citalopram 10 mg tablet Active [...] Discontinued (Dose adjustment) take 2 tablets by [facility] once daily citalopram (CELEXA) 10 MG tablet Take 2 tablets by mouth daily 0 Active clopidogrel 75 mg oral tablet (2 sources) P2Y12 Platelet Inhibitor Start: 09-05-2024 End: 09-05-2025 take 1 tablet by mouth once daily clopidogrel (Plavix) 75 mg tablet Indications: Atherosclerosis of coronary artery bypass graft of [place] heart without angina pectoris , S/P PTCA [...] mouth two times weekly Vitamin D (Ergocalciferol) 83725 UNIT 1 capsule Orally TWICE a Week [...] 3 weeks, then 3x per week thereafter, [facility] #[id number], 160, cm, 04/10/24 15:13:00 EDT, Height/Length Dosing, [...] Start: 04-30-2020 fluticasone 0. 05 mg/inh [place] Refill(s) 0 Start Date: 04/30/20 Status: Ordered fluticasone 0.05 mg/inh [place] (3 sources) Start: 04-30-2020 fluticasone 0.05 mg/inh [place] Refill(s) 0 Start Date: 04/30/20 Status: Ordered [...] day(s), # 45 tab(s), Refills(s) 3, Pharmacy: [facility], 160, cm, 06/02/22 8:29:00 EDT, [...] Daily, # 90 tab(s), Refills(s) 3, Pharmacy: [facility], 160, cm, 05/27/21 8:19:00 [...] day(s), # 30 tab(s), Refills(s) 11, Pharmacy: [facility] #[id number], 160, cm, 04/10/24 15:13:00 EDT, Height/Length Dosing, [...] mouth 2 times a day. 0 Active Fvpnvyguzbur-Viu-Lcjl-Fa-Vit K (Bariatric Multivitamins) 45 mg iron- 800 mcg-120 mcg Capsule (4 sources) Start: 11-01-2022 take 1 capsule by mouth twice daily Qhykgyrrddlo-Yfe-Jzrg-Fa-Vit K (Bariatric Multivitamins) 45 mg iron- 800 mcg-120 mcg Capsule Active 1 CAP PO Twice daily November 01, 2022 1:00am Start: 11-01-2022 take 1 capsule by [facility] twice daily Sbxfqidruyic-Mwe-Wdxs-Fa-Vit K (Bariatri c Multivitamins) 45 mg iron- [...] tablet Indications: Atherosclerosis of coronary artery of [place] heart without angina pectoris, unspecified vessel or [...] needed 05/05/2020 Active omega-3 acid ethyl esters (fci) 1000 mg oral capsule (3 sources) take [...] April 21, 2018 11:01pm polyethylene glycol 3350 878383 mg / potassium chloride 2970 mg / sodium bicarbonate 6740 mg / sodium chloride 5860 mg / sodium sulfate 15002 mg powder for oral solution (3 sources) [...] day(s), # 180 cap(s), Refills(s) 3, Pharmacy: [facility], 160, cm, 05/27/21 8:19:00 EDT, Height/Length Dosing, 61, kg, 05/27/21 8:19:00 EDT, Weight Dosing Start Date: 03/14/22 Stop Date: 03/09/23 Status: Ordered Start: 04-17-2018 take 1 capsule by [facility] once daily tamsulosin (Flomax) 0.4 mg 24 [...] 01, 2022 12:00am take 1 tablet by [facility] every twenty-four hours traMADol HCl 50 MG 1 tablet as needed Orally Once a day Active ubidecarenone 200 mg oral capsule (3 sources) take 1 capsule by [facility] every twenty-four hours Coenzyme Q-10 200 MG 1 capsule with a meal Orally Once a day for 30 day(s) Active vibegron 75 MG Oral Tablet [Gemtesa] (1 source) Start: 04-10-2024 End: 04-05-2025 take 1 tablet by mouth once daily Gemtesa 75 mg oral tablet 75 mg = 1 tab(s), Oral, Daily, X 30 day(s), # 30 tab(s), Refills(s) 11, Pharmacy: [facility] #[id number], 160, cm, 04/10/24 15:13:00 EDT, Height/Length Dosing, [...] a day for 30 day(s) Active vitamins A,C,B-wyxl-hbhzpj (1 source) Start: 08-19-2024 vitamins A,C,P-vgym-jibtua Active PO August 19, 2024 12:00am Zyrtec [...] Start: 04-17-2018 take 2 tablets by mo [facility] every four hours as needed for pain Oxycodone-Acetaminophen (Percocet) 5-325 mg tablet Active 2 TAB PO Q4H as needed for pain April 17, 2018 ascorbic acid 226 mg / beta carotene 15293 unt / cuprous oxide 0.8 mg / [...] / neomycin 3.5 mg/ml / polymyxin b 51078 unt/ml ophthalmic suspension (3 sources) Aminoglycoside Antibacterial, Polymyxin-class Antibacterial, Corticosteroid Start: 06-13-2021 take 2 drop(s) into the eye(s) four times daily Neomycin-Polymyxin- HC 3.5-60377-5 Ophthalmic Suspension instill 2 drops INTO AFFECTED [...] sources) Coronary atherosclerosis; Translations: [Coronary atherosclerosis of [place] coronary artery] Onset: 2 Chronic Coronary atherosclerosis [...] 4 08-18-2024 Episodic Other aftercare (1 source) senior living (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; Translations: [RETIREMENT CURRENT USE OF ASPIRIN] Onset: 3 Episodic Other aftercare (1 source) 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; Translations: [OTH DATABASE SPECIALIST CURRENT DRUG THERAPY] Onset: 3 Episodic Other [...] Unclassified (1 source) Athscl heart disease of [place] coronary artery w/o ang pctrs / I25.10(ICD-9) [...] lead ECGon 08-22-2024 ECG 12 lead ECG [facility] Main [place] [address] [place] [id number] Electrocardiograph Report Signed Patient: Jose Alberto Saleem MR#: [id number] : 1965 Acct:[id number] Age/Sex: 59 / F ADM Date: 08/20/24 Loc: Room: [address] [place] [address] Type: DIS IN Attending Dr: Kaiser Quijano [...] abnormality Abnormal ECG Confirmed by Bella Stein ([id number]) on 08/22/2024 11:33:07 PM Referred By: Bella Stein Electronically Signed By: Bella Stein Transcribed By: MUS Signed By Bella Stein MD 4 2333 Normal [facility] Troponin I High Sensitivityo n 08-22-2024 Troponin I High Sensitivity 1211.6 pg/mL Off scale high 0.0-15.0 [facility] Comment on above: Result Comment: Crit ical Result : Called to and read back by: ROB MCDONALD at: 08/22/2024 06:38:37 by:RAMONA PERFORMED BY: [place] [address] PATHOLOGIST HEEL PAINTER JANA OLMEDO M.D. Performed By: #### H S TROP ####[facility] [id number] [place] [id number] [facility] Blood Urea Nitrogenon 2023 Urea nitrogen [Mass/Vol] 14 mg/dL Normal 7-25 [facility] Comment on above: Performed By: #### C REAT, BUN, PP, CBC, LYTES ####[facility] [place] [id number] [facility] Coagulation Profileon 2023 aPTT Coag (Bld) [Time] 35.9 s Normal 25.1-36.5 [facility] Comment on above: Result Comment: A he matocrit value greater than 55% may lead to inaccurate results in coagulation testing. Patients having hematocrit values >55% require a special collection tube for coagulation studies. Please contact the laboratory at [phone] for redraw instructions. PERFORMED BY: [address] RADAMESReneFawad [place] [id number] PATHOLOGIST HEEL PAINTER JANA OLMEDO M.D. Performed By: #### C REAT, BUN, PP, CBC, LYTES ####[place] [id number] [place] [id number] [facility] INR Coag (PPP) [Relative time] 1.1 {INR} Normal [facility] Comment on above: Result [...] #### C REAT, BUN, PP, CBC, LYTES ####[place] [address] [place] [address] [facility] PT Coag (PPP) [Time] 12.2 s Normal 9.0-12.9 [facility] Comment on above: Result Comment: A he matocrit value greater than 55% may lead to inaccurate results in coagulation testing. Patients having hematocrit values >55% require a special collection tube for coagulation studies. Please contact the laboratory at [phone] for redraw instructions. Performed By: #### C REAT, BUN, PP, CBC, LYTES ####[address] Complete Blood Count Auto Di ffon 08-21-2024 Basophils (Bld) [#/Vol] 0.0 10*3/uL Normal 0.0-0.2 [facility] Comment on above: Result Comment: PERF ORMED BY: [facility] [address] [place] [address] PATHOLOGIST HEEL PAINTER JANA OLMEDO M.D. Performed By: #### C REAT, BUN, PP, CBC, LYTES ####[address] Basophils/100 WBC (Bld) 0.3 % Normal . [facility] Comment on above: Performed By: #### C REAT, BUN, PP, CBC, LYTES ####[address] Eosinophils (Bld) [#/Vol] 0.2 10*3/uL Normal 0.0-0.45 [facility] Comment on above: Performed By: #### C REAT, BUN, PP, CBC, LYTES ####[address] Eosinophils/100 WBC (Bld) 3.9 % Normal . [facility] Comment on above: Performed By: #### C REAT, BUN, PP, CBC, LYTES ####[address] Erythrocyte distribution width (RBC) [Ratio] 12.7 % Normal 11.9-15.3 [facility] Comment on above: Performed By: #### C REAT, BUN, PP, CBC, LYTES ####[address] Hematocrit (Bld) [Volume fraction] 42.5 % Normal 34.0-46.4 [facility] Comment on above: Performed By: #### C REAT, BUN, PP, CBC, LYTES ####[address] [place] [address] [place] Hemoglobin (Bld) [Mass/Vol] 14.6 g/dL Normal 11.8-15.4 [facility] Comment on above: Performed By: #### C REAT, BUN, PP, CBC, LYTES ####[address] Lymphocytes (Bld) [#/Vol] 1.7 10*3/uL Normal 1.00-4.8 [facility] Comment on above: Performed By: #### C REAT, BUN, PP, CBC, LYTES ####[address] Lymphocytes/100 WBC (Bld) 35.0 % Normal . [facility] Comment on above: Performed By: #### C REAT, BUN, PP, CBC, LYTES ####[address] MCH (RBC) [Entitic mass] 30.8 pg Normal 24.7-34.3 [facility] Comment on above: Performed By: #### C REAT, BUN, PP, CBC, LYTES ####[address] MCV (RBC) [Entitic vol] 89.8 fL Normal 80-100 [facility] Comment on above: Performed By: #### C REAT, BUN, PP, CBC, LYTES ####[address] Mean Corpuscular HGB Conc 34.3 g/dL Normal 32.0-35.0 [facility] Comment on above: Performed By: #### C REAT, BUN, PP, CBC, LYTES ####[address] Monocytes (Bld) [#/Vol] 0.5 10*3/uL Normal 0.0-0.8 [facility] Comment on above: Performed By: #### C REAT, BUN, PP, CBC, LYTES ####[address] [place] [address] [place] Monocytes/100 WBC (Bld) 10.9 % Normal . [facility] Comment on above: Performed By: #### C REAT, BUN, PP, CBC, LYTES ####[address] Neutrophils (Bld) [#/Vol] 2.5 10*3/uL Normal 1.8-7.7 [facility] Comment on above: Performed By: #### C REAT, BUN, PP, CBC, LYTES ####[address] Neutrophils/100 WBC (Bld) 49.9 % Normal . [facility] Comment on above: Performed By: #### C REAT, BUN, PP, CBC, LYTES ####[address] NRBC% 0.1 /100{WBC} Normal 0-0.5 [facility] Comment on above: Performed By: #### C REAT, BUN, PP, CBC, LYTES ####[address] Platelet mean volume (Bld) [Entitic vol] 7.7 fL Normal 6.3-10.7 [facility] Comment on above: Performed By: #### C REAT, BUN, PP, CBC, LYTES ####[address] Platelets (Bld) [#/Vol] 172 10*3/uL Normal 150-450 [facility] Comment on above: Performed By: #### C REAT, BUN, PP, CBC, LYTES ####[address] RBC (Bld) [#/Vol] 4.73 10*6/uL Normal 3.60-5.00 [facility] Comment on above: Performed By: #### C REAT, BUN, PP, CBC, LYTES ####[address] WBC (Bld) [#/Vol] 4.9 10*3/uL Normal 3.8-11.6 [facility] Comment on above: Performed By: #### C REAT, BUN, PP, CBC, LYTES ####[place] [address] [place] [id number] [facility] Creatinineon 08-21-2024 Creatinine [Mass/Vol] 0.61 mg/dL Normal 0.60-1.20 [facility] Comment on above: Performed By: #### C REAT, BUN, PP, CBC, LYTES ####[place] [address] [place] [id number] [facility] Creatinine Clr Calc Pharmacy 97.73 Normal [facility] Comment on above: Result Comment: PERF ORMED BY: [place] [address] PATHOLOGIST HEEL PAINTER AJNA OLMEDO M.D. Performed By: #### C REAT, BUN, PP, CBC, LYTES ####[place] [address] GFR/1.73 sq M.predicted MDRD (S/P/Bld) [Vol rate/Area] mL/min/{1.73_m2} Normal [facility] Comment on above: Performed By: #### C REAT, BUN, PP, CBC, LYTES ####[place] [id number] [facility] ECG 12 lead ECGon 08-21-2024 ECG 12 lead ECG [facility] [place] [address] Electrocardiograph Report Signed Patient: Jose Alberto Saleem MR#: [id number] : 1965 Acct:[id number] Age/Sex: 59 / F ADM Date: 08/20/24 Loc: 4 Room: [address] [place] [address] Type: DIS IN Attending Dr: Kaiser Quijano [...] abnormality Abnormal ECG Confirmed by Bella Stein ([id number]) on 08/22/2024 11:33:52 PM Referred By: Bella Stein Electronically Signed By: Bella Stein Transcribed By: MUS Signed By Bella Stein MD 4 2333 Normal [facility] Electrolyteson 08-21-2024 Anion gap [Moles/Vol] 11.0 mmol/L Normal 6.0-15.0 [facility] Comment on above: Performed By: #### C REAT, BUN, PP, CBC, LYTES ####[address] Chloride [Moles/Vol] 105 mmol/L Normal 98-107 [facility] Comment on above: Performed By: #### C REAT, BUN, PP, CBC, LYTES ####[address] CO2 [Moles/Vol] 27.9 mmol/L Normal 21.0-31.0 [facility] Comment on above: Performed By: #### C REAT, BUN, PP, CBC, LYTES ####[place] [id number] [facility] Potassium [Moles/Vol] 3.9 mmol/L Normal 3.5-5.1 [facility] Comment on above: Performed By: #### C REAT, BUN, PP, CBC, LYTES ####[place] [id number] [facility] Sodium [Moles/Vol] 140 mmol/L Normal 136-145 [facility] Comment on above: Performed By: #### C REAT, BUN, PP, CBC, LYTES ####[place] [id number] [facility] NM lia perf SPECT rest stron 08-20-2024 NM lia perf SPECT rest str [facility] Main [place] [id number] Nuclear Medicine Report Signed Patient: Jose Alberto Saleem MR#: [id number] 571 : 1965 Acct:[id number] Age/Sex: 59 / F ADM Date: 08/18/24 Loc: Room: [address] [place] [address] Type: ADM INOo Attending Dr: Chucky Dunn [...] Bella Stein M.D.08/20/2024 3:56 PM Dictation Location: [place] [address] Transcribed By: [facility] 08/20/24 1556 Dictated By: Bella Stein MD 08/20/24 1552 Signed By: 08/20/24 155 Normal [facility] A1C with Estimated Average G ajay 08-19-2024 Glucose [Mass/Vol] 117 mg/dL Normal [facility] Comment on above: Result Comment: PERF ORMED BY: [place] [address] PATHOLOGIST HEEL PAINTER JANA OLMEDO M.D. Performed By: #### A 1C [facility] eA, HS TROP ####[facility] [id number] [place] [address] [facility] HbA1c (Bld) [Mass fraction] 5.7 % High 4.3-5.6 [facility] Comment on above: Result Comment: Incr eased risk for diabetes: 5.7 - 6.4 diabetes: >6.4 glycemic control for adults with diabetes: <7.0 Performed By: #### A 1C [facility] eA, HS TROP ####[facility] Mcz[address] [place] [address] [facility] ECG 12 lead ECGon 08-19-2024 ECG 12 lead ECG [facility] [place] [address] Electrocardiograph Report Signed Patient: Jose Alberto Saleem MR#: [id number] 571 : 1965 Acct:[id number] Age/Sex: 59 / F ADM Date: 08/18/24 Loc: Room: [address] [place] [address] Type: ADM INOo Attending Dr: Chucky Dunn [...] abnormality Abnormal ECG Confirmed by Bella Stein ([id number]) on 08/21/2024 12:00:39 AM Referred By: Bella Stein Electronically Signed By: Bella Stein Transcribed By: MUS Signed By Bella Stein MD 4 0000 Normal [facility] ECG 12 lead ECG [facility] [place] [address] Electrocardiograph Report Signed Patient: Jose Alberto Saleem MR#: [id number] 571 : 1965 Acct:[id number] Age/Sex: 59 / F ADM Date: 08/18/24 Loc: 3T Room: [address] [place] [address] Type: ADM INOo Attending Dr: Chucky Dunn [...] rhythm Leftward axis Confirmed by Torsten Monreal ([id number]) on 08/20/2024 11:52:24 PM Referred By: Bella Stein Electronically Signed By: Torsten Monreal Transcribed By: MUS Signed By Torsten Monreal MD 08/20/24 2352 Normal [facility] Troponin I High Sensitivityo n 08-19-2024 Troponin I High Sensitivity 4.6 pg/mL Normal 0.0-15.0 [facility] Comment on above: Result Comment: PERF ORMED BY: [place] [address] PATHOLOGIST HEEL PAINTER JANA OLMEDO M.D. Performed By: #### A 1C [facility], TROP ####[facility] [id number] X-ray reportOrdered By: Anna Wick on 08-19-2024 Study report [facility] Main [place] [address] [place] [address] XRay Report Signed Patient: Jose Alberto Saleem MR#: [id number] : 1965 Acct:[id number] Age/Sex: 59 / F ADM Date: 4 Loc: 3T Room: [address] [place] [address] Type: ADM INOo Attending Dr: Donis Arroyo [...] Thelma Wick M.D.08/19/2024 12:10 AM Dictation Location: [place] [address] Transcribed By: [facility] 08/19/249 Dictated By: Thelma Wick MD 08/18/242210 Signed By: 08/19/249 [facility] Work Phone: Alanine aminotransferase [En zymatic activity/volume] in Serum or PlasmaOrdered By: Lynnette Chapman on 08-18-2024 ALT [Catalytic activity/Vol] Alanine aminotransferase [Enzymatic activity/volume] in Serum or Plasma 7-52 [facility] Albumin [Mass/volume] in Ser um or Plasma by Bromocresol green (BCG) dye binding methoOrdered By: Lynnette Chapman on 08-18-2024 Albumin BCG dye [Mass/Vol] Albumin [Mass/volume] in Serum or Plasma by Bromocresol green (BCG) dye binding metho 3.5-5.7 [facility] Alkaline phosphatase [Enzyma tic activity/volume] in Serum or PlasmaOrdered By: Lynnette Chapman on 08-18-2024 ALP [Catalytic activity/Vol] Alkaline phosphatase [Enzymatic activity/volume] in Serum or Plasma 34-104 [facility] [facility] Aspartate aminotransferase [ Enzymatic activity/volume] in Serum or PlasmaOrdered By: Lynnette Chapman on 08-18-2024 AST [Catalytic activity/Vol] Aspartate aminotransferase [Enzymatic activity/volume] in Serum or Plasma 13-39 [facility] B-Type Natriuretic Peptideon 08-18-2024 Natriuretic peptide B (Bld) [Mass/Vol] 31.0 pg/mL Normal 5-100 [facility] Comment on above: Result Comment: PERF ORMED BY: [place] [address] PATHOLOGIST HEEL PAINTER JANA OLMEDO M.D. Performed By: #### H S TROP, LIPASE, PT, BMP, HEPATIC, CK, CBC, BNP ####[address] Basic Metabolic Panelon 08-01 Anion gap [Moles/Vol] 10.7 mmol/L Normal 6.0-15.0 [facility] Comment on above: Performed By: #### H S TROP, LIPASE, PT, BMP, HEPATIC, CK, CBC, BNP #### [address] Performed By: #### H S TROP, LIPASE, PT, BMP, HEPATIC, CK, CBC, BNP ####[address] Calcium [Mass/Vol] 10.1 mg/dL Normal 8.6-10.3 [facility] Comment on above: Performed By: #### H S TROP, LIPASE, PT, BMP, HEPATIC, CK, CBC, BNP #### [address] Performed By: #### H S TROP, LIPASE, PT, BMP, HEPATIC, CK, CBC, BNP ####[address] Chloride [Moles/Vol] 102 mmol/L Normal 98-107 [facility] Comment on above: Performed By: #### H S TROP, LIPASE, PT, BMP, HEPATIC, CK, CBC, BNP #### [address] Performed By: #### H S TROP, LIPASE, PT, BMP, HEPATIC, CK, CBC, BNP ####[address] CO2 [Moles/Vol] 28.4 mmol/L Normal 21.0-31.0 [facility] Comment on above: Performed By: #### H S TROP, LIPASE, PT, BMP, HEPATIC, CK, CBC, BNP #### [address] Performed By: #### H S TROP, LIPASE, PT, BMP, HEPATIC, CK, CBC, BNP ####[address] Creatinine [Mass/Vol] 0.62 mg/dL Normal 0.60-1.20 [facility] Comment on above: Performed By: #### H S TROP, LIPASE, PT, BMP, HEPATIC, CK, CBC, BNP #### [address] Performed By: #### H S TROP, LIPASE, PT, BMP, HEPATIC, CK, CBC, BNP ####[address] Creatinine Clr Calc Pharmacy 95.72 Normal [facility] Comment on above: Result Comment: PERF ORMED BY: [place] [address] PATHOLOGIST HEEL PAINTER JANA OLMEDO M.D. Performed By: #### H S TROP, LIPASE, PT, BMP, HEPATIC, CK, CBC, BNP #### [address] Performed By: #### H S TROP, LIPASE, PT, BMP, HEPATIC, CK, CBC, BNP ####[address] GFR/1.73 sq M.predicted MDRD (S/P/Bld) [Vol rate/Area] mL/min/{1.73_m2} Normal [facility] Comment on above: Performed By: #### H S TROP, LIPASE, PT, BMP, HEPATIC, CK, CBC, BNP #### [address] Performed By: #### H S TROP, LIPASE, PT, BMP, HEPATIC, CK, CBC, BNP ####[address] Glucose [Mass/Vol] 94 mg/dL Normal 70-100 [facility] Comment on above: Result Comment: [facility] Glucose Reference Range is dependent on time and content of last meal. Glucose of more than 200 mg/dL in a nonstressed, ambulatory subject supports the diagnosis of Diabetes Mellitus. ADA recommended reference range Performed By: #### H S TROP, LIPASE, PT, BMP, HEPATIC, CK, CBC, BNP #### [address] Performed By: #### H S TROP, LIPASE, PT, BMP, HEPATIC, CK, CBC, BNP ####[address] Potassium [Moles/Vol] 4.1 mmol/L Normal 3.5-5.1 [facility] Comment on above: Performed By: #### H S TROP, LIPASE, PT, BMP, HEPATIC, CK, CBC, BNP #### [address] Performed By: #### H S TROP, LIPASE, PT, BMP, HEPATIC, CK, CBC, BNP ####[address] Sodium [Moles/Vol] 137 mmol/L Normal 136-145 [facility] Comment on above: Performed By: #### H S TROP, LIPASE, PT, BMP, HEPATIC, CK, CBC, BNP #### [address] Performed By: #### H S TROP, LIPASE, PT, BMP, HEPATIC, CK, CBC, BNP ####[address] Urea nitrogen [Mass/Vol] 22 mg/dL Normal 7-25 [facility] Comment on above: Performed By: #### H S TROP, LIPASE, PT, BMP, HEPATIC, CK, CBC, BNP #### [address] Performed By: #### H S TROP, LIPASE, PT, BMP, HEPATIC, CK, CBC, BNP ####[facility] [id number] [place] [address] [facility] Basophils Auto (Bld) [#/Vol] Ordered By: Lynnette Chapman on 08-18-2024 Basophils (Bld) [#/Vol] Automated basophil count 0.0-0.2 [facility] Basophils/100 WBC Auto (Bld) Ordered By: Lynnette Chapman on 08-18-2024 Basophils/100 WBC (Bld) Automated basophil % . [facility] Bilirubin.direct [Mass/volum e] in Serum or PlasmaOrdered By: Lynnette Chapman on 08-18-2024 Bilirubin.direct [Mass/Vol] Bilirubin.direct [Mass/volume] in Serum or Plasma 0.03-0.18 [facility] Bilirubin.total [Mass/volume ] in Serum or PlasmaOrdered By: Lynnette Chapman on 08-18-2024 Bilirubin [Mass/Vol] Bilirubin.total [Mass/volume] in Serum or Plasma 0.3-1.0 [facility] Calcium [Mass/volume] in Ser um or PlasmaOrdered By: Lynnette Chapman on 08-18-2024 Calcium [Mass/Vol] Calcium [Mass/volume ] in Serum or Plasma 8.6-10.3 [facility] Carbon dioxide, total [Moles /volume] in Serum or PlasmaOrdered By: Lynnette Chapman on 08-18-2024 CO2 [Moles/Vol] Carbon dioxide, tota l [Moles/volume] in Serum or Plasma 21.0-31.0 [facility] Chloride [Moles/volume] in S nina or PlasmaOrdered By: Lynnette Chapman on 08-18-2024 Chloride [Moles/Vol] Chloride [Moles/vol ume] in Serum or Plasma 98-107 [facility] Complete Blood Count Auto Di ffon 08-18-2024 Basophils (Bld) [#/Vol] 0.0 10*3/uL Normal 0.0-0.2 [facility] Comment on above: Result Comment: PERF ORMED BY: [facility] [address] [place] [address] PATHOLOGIST HEEL PAINTER JANA OLMEDO M.D. Performed By: #### H S TROP, LIPASE, PT, BMP, HEPATIC, CK, CBC, BNP #### [address] Basophils/100 WBC (Bld) 0.7 % Normal . [facility] Comment on above: Performed By: #### H S TROP, LIPASE, PT, BMP, HEPATIC, CK, CBC, BNP #### [address] Eosinophils (Bld) [#/Vol] 0.2 10*3/uL Normal 0.0-0.45 [facility] Comment on above: Performed By: #### H S TROP, LIPASE, PT, BMP, HEPATIC, CK, CBC, BNP #### [address] Eosinophils/100 WBC (Bld) 3.5 % Normal . [facility] Comment on above: Performed By: #### H S TROP, LIPASE, PT, BMP, HEPATIC, CK, CBC, BNP #### [address] Erythrocyte distribution width (RBC) [Ratio] 12.6 % Normal 11.9-15.3 [facility] Comment on above: Performed By: #### H S TROP, LIPASE, PT, BMP, HEPATIC, CK, CBC, BNP #### [address] Hematocrit (Bld) [Volume fraction] 43.7 % Normal 34.0-46.4 [facility] Comment on above: Performed By: #### H S TROP, LIPASE, PT, BMP, HEPATIC, CK, CBC, BNP #### [address] Hemoglobin (Bld) [Mass/Vol] 15.1 g/dL Normal 11.8-15.4 [facility] Comment on above: Performed By: #### H S TROP, LIPASE, PT, BMP, HEPATIC, CK, CBC, BNP #### [address] Lymphocytes (Bld) [#/Vol] 2.2 10*3/uL Normal 1.00-4.8 [facility] Comment on above: Performed By: #### H S TROP, LIPASE, PT, BMP, HEPATIC, CK, CBC, BNP #### [address] Lymphocytes/100 WBC (Bld) 36.5 % Normal . [facility] Comment on above: Performed By: #### H S TROP, LIPASE, PT, BMP, HEPATIC, CK, CBC, BNP #### [address] MCH (RBC) [Entitic mass] 30.7 pg Normal 24.7-34.3 [facility] Comment on above: Performed By: #### H S TROP, LIPASE, PT, BMP, HEPATIC, CK, CBC, BNP #### [address] MCV (RBC) [Entitic vol] 88.8 fL Normal 80-100 [facility] Comment on above: Performed By: #### H S TROP, LIPASE, PT, BMP, HEPATIC, CK, CBC, BNP #### [address] Mean Corpuscular HGB Conc 34.5 g/dL Normal 32.0-35.0 [facility] Comment on above: Performed By: #### H S TROP, LIPASE, PT, BMP, HEPATIC, CK, CBC, BNP #### [address] Monocytes (Bld) [#/Vol] 0.6 10*3/uL Normal 0.0-0.8 [facility] Comment on above: Performed By: #### H S TROP, LIPASE, PT, BMP, HEPATIC, CK, CBC, BNP #### [address] Monocytes/100 WBC (Bld) 16.97 % Normal 0.00-20.00 [facility] Comment on above: Performed By: #### H S TROP, LIPASE, PT, BMP, HEPATIC, CK, CBC, BNP #### [address] Monocytes/100 WBC (Bld) 10.5 % Normal . [facility] Comment on above: Performed By: #### H S TROP, LIPASE, PT, BMP, HEPATIC, CK, CBC, BNP #### [address] Neutrophils (Bld) [#/Vol] 3.0 10*3/uL Normal 1.8-7.7 [facility] Comment on above: Performed By: #### H S TROP, LIPASE, PT, BMP, HEPATIC, CK, CBC, BNP #### [address] Neutrophils/100 WBC (Bld) 48.8 % Normal . [facility] Comment on above: Performed By: #### H S TROP, LIPASE, PT, BMP, HEPATIC, CK, CBC, BNP #### [address] NRBC% 0.1 /100{WBC} Normal 0-0.5 [facility] Comment on above: Performed By: #### H S TROP, LIPASE, PT, BMP, HEPATIC, CK, CBC, BNP #### [address] Platelet mean volume (Bld) [Entitic vol] 7.9 fL Normal 6.3-10.7 [facility] Comment on above: Performed By: #### H S TROP, LIPASE, PT, BMP, HEPATIC, CK, CBC, BNP #### [address] Platelets (Bld) [#/Vol] 204 10*3/uL Normal 150-450 [facility] Comment on above: Performed By: #### H S TROP, LIPASE, PT, BMP, HEPATIC, CK, CBC, BNP #### [address] RBC (Bld) [#/Vol] 4.92 10*6/uL Normal 3.60-5.00 [facility] Comment on above: Performed By: #### H S TROP, LIPASE, PT, BMP, HEPATIC, CK, CBC, BNP #### [facility] [address] WBC (Bld) [#/Vol] 6.1 10*3/uL Normal 3.8-11.6 [facility] Comment on above: Performed By: #### H S TROP, LIPASE, PT, BMP, HEPATIC, CK, CBC, BNP #### [facility] [address] Creatine Kinaseon 08-18-2024 CK [Catalytic activity/Vol] 53 U/L Normal 30-223 [facility] Comment on above: Performed By: #### H S TROP, LIPASE, PT, BMP, HEPATIC, CK, CBC, BNP ####[facility] [id number] Creatine kinase [Enzymatic a ctivity/volume] in Serum or PlasmaOrdered By: Lynnette Chapman on 08-18-2024 CK [Catalytic activity/Vol] Creatine kinase [Enzymatic activity/volume] in Serum or Plasma 30-223 [facility] Creatinine [Mass/volume] in Serum or PlasmaOrdered By: Lynnette Chapman on 08-18-2024 Creatinine [Mass/Vol] Creatinine [Mass/v olume] in Serum or Plasma 0.60-1.20 [facility] ECG 12 lead ECGon 08-18-2024 ECG 12 lead ECG [facility] Main [place] [address] [place] [address] Electrocardiograph Report Signed Patient: Jose Alberto Saleem MR#: [id number] : 1965 Acct:[id number] Age/Sex: 59 / F ADM Date: 08/18/24 Loc: ER Room: Type: [facility] ER Attending Dr: Ordering Provider: Lynnette Chapman [...] wave abnormality Confirmed by Lynnette Chapman MD ([id number]) on 08/18/2024 11:22:40 PM Referred By: Electronically Signed By: Lynnette Chapman MD Transcribed By: MUS Signed By Lynnette Chapman MD 08/01 05/24 2322 Normal [facility] Eosinophils Auto (Bld) [#/Vo l]Ordered By: Lynnette Chapman on 08-18-2024 Eosinophils (Bld) [#/Vol] Automated eosinophil count 0.0-0.45 [facility] Eosinophils/100 WBC Auto (Bl d)Ordered By: Lynnette Chapman on 08-18-2024 Eosinophils/100 WBC (Bld) Automated eosinophil % . [facility] Erythrocyte distribution wid th Auto (RBC) [Ratio]Ordered By: Lynnette Chapman on 08-18-2024 Erythrocyte distribution width (RBC) [Ratio] Erythrocyte distribution width [Ratio] by Automated count 11.9-15.3 [facility] Globulin Calc (S) [Mass/Vol] Ordered By: Lynnette Chapman on 08-18-2024 Globulin (S) [Mass/Vol] Serum globulin measurement by calculation (mass/volume) [facility] Glucose [Mass/volume] in Ser um or PlasmaOrdered By: Lynnette Chapman on 08-18-2024 Glucose [Mass/Vol] Glucose [Mass/volume ] in Serum or Plasma 70-100 [facility] Comment on above: ADA recommended refe rence rangeRandom Glucose Reference Range is dependent on time and content of last meal. Glucose of more than 200 mg/dL in a nonstressed, ambulatory subject supports the diagnosis of Diabetes Mellitus. Hematocrit Auto (Bld) [Volum e fraction]Ordered By: Lynnette Chapman on 08-18-2024 Hematocrit (Bld) [Volume fraction] Hematocrit [Volume Fraction] of Blood by Automated count 34.0-46.4 [facility] Hemoglobin [Mass/volume] in BloodOrdered By: Lynnette Chapman on 08-18-2024 Hemoglobin (Bld) [Mass/Vol] Hemoglobin [Mass/volume] in Blood 11.8-15.4 [facility] Hepatic Panelon 08-18-2024 Albumin [Mass/Vol] 4.3 g/dL Normal 3.5-5.7 [facility] Comment on above: Performed By: #### H S TROP, LIPASE, PT, BMP, HEPATIC, CK, CBC, BNP ####[address] Albumin/Globulin [Mass ratio] 1.7 {ratio} Normal [facility] Comment on above: Performed By: #### H S TROP, LIPASE, PT, BMP, HEPATIC, CK, CBC, BNP ####[address] ALP [Catalytic activity/Vol] 89 U/L Normal 34-104 [facility] Comment on above: Performed By: #### H S TROP, LIPASE, PT, BMP, HEPATIC, CK, CBC, BNP ####[address] ALT [Catalytic activity/Vol] 42 U/L Normal 7-52 [facility] Comment on above: Performed By: #### H S TROP, LIPASE, PT, BMP, HEPATIC, CK, CBC, BNP ####[address] AST [Catalytic activity/Vol] 31 U/L Normal 13-39 [facility] Comment on above: Performed By: #### H S TROP, LIPASE, PT, BMP, HEPATIC, CK, CBC, BNP ####[address] Bilirubin [Mass/Vol] 0.4 mg/dL Normal 0.3-1.0 [facility] Comment on above: Performed By: #### H S TROP, LIPASE, PT, BMP, HEPATIC, CK, CBC, BNP ####[address] Bilirubin,Indirect 0.3 mg/dL Normal [facility] Comment on above: Performed By: #### H S TROP, LIPASE, PT, BMP, HEPATIC, CK, CBC, BNP ####[address] Bilirubin.indirect [Mass/Vol] 0.10 mg/dL Normal 0.03-0.18 [facility] Comment on above: Performed By: #### H S TROP, LIPASE, PT, BMP, HEPATIC, CK, CBC, BNP ####[facility] [place] [id number] [facility] Globulin (S) [Mass/Vol] 2.6 g/dL Normal [facility] Comment on above: Performed By: #### H S TROP, LIPASE, PT, BMP, HEPATIC, CK, CBC, BNP ####[place] [id number] [place] [id number] [facility] Protein [Mass/Vol] 6.9 g/dL Normal 6.4-8.9 [facility] Comment on above: Performed By: #### H S TROP, LIPASE, PT, BMP, HEPATIC, CK, CBC, BNP ####[place] [id number] [place] [id number] [facility] INR in Platelet poor plasma by Coagulation assayOrdered By: Lynnette Chapman on 08-18-2024 INR Coag (PPP) [Relative time] INR in Platelet poor plasma by Coagulation assay [facility] Comment on above: INR Therapeutic Rang e [...] erythrocytes in Blood by Automated coun 3.8-11.6 [facility] Lipaseon 08-18-2024 Lipase [Catalytic activity/Vol] 110.0 U/L High 11.0-82.0 [facility] Comment on above: Result Comment: PERF ORMED BY: [facility] [address] [place] [id number] PATHOLOGIST HEEL PAINTER JANA OLMEDO M.D. Performed By: #### H S TROP, LIPASE, PT, BMP, HEPATIC, CK, CBC, BNP ####[facility] [id number] [place] [id number] [facility] Lipase [Enzymatic activity/v olume] in Serum or PlasmaOrdered By: Lynnette Chapman on 08-18-2024 Lipase [Catalytic activity/Vol] Lipase [Enzymatic activity/volume] in Serum or Plasma High 11.0-82.0 [facility] Lymphocytes Auto (Bld) [#/Vo l]Ordered By: Lynnette Chapman on 08-18-2024 Lymphocytes (Bld) [#/Vol] Lymphocytes [#/volume] in Blood by Automated count 1.00-4.8 [facility] Lymphocytes/100 WBC Auto (Bl d)Ordered By: Lynnette Chapman on 08-18-2024 Lymphocytes/100 WBC (Bld) Lymphocytes/100 leukocytes in Blood by Automated count . [facility] MCH Auto (RBC) [Entitic mass ]Ordered By: Lynnette Chapman on 08-18-2024 MCH (RBC) [Entitic mass] MCH [Entitic mass] by Automated count 24.7-34.3 [facility] MCHC Auto (RBC) [Mass/Vol]Or dered By: Lynnette Chapman on 08-18-2024 MCHC (RBC) [Mass/Vol] MCHC [Mass/volume] by Automated count 32.0-35.0 [facility] MCV Auto (RBC) [Entitic vol] Ordered By: yLnnette Chapman on 08-18-2024 MCV (RBC) [Entitic vol] MCV [Entitic volume] by Automated count 80-100 [facility] Monocyte distribution width [Entitic volume] in Blood by AutomatedOrdered By: Lynnette Chapman on 08-18-2024 Monocyte distribution width Auto (Bld) [Entitic vol] Monocyte distribution width [Entitic volume] in Blood by Automated 0.00-20.00 [facility] Monocytes Auto (Bld) [#/Vol] Ordered By: Lynnette Chapman on 08-18-2024 Monocytes (Bld) [#/Vol] Automated blood monocyte count 0.0-0.8 [facility] Monocytes/100 WBC Auto (Bld) Ordered By: Lynnette Chapman on 08-18-2024 Monocytes/100 WBC (Bld) Automated monocyte % . [facility] Natriuretic peptide B [Mass/ Vol]Ordered By: Lynnette Chapman on 08-18-2024 Natriuretic peptide B (Bld) [Mass/Vol] BNP ser/plas 5-100 [facility] Neutrophils Auto (Bld) [#/Vo l]Ordered By: Lynnette Chapman on 08-18-2024 Neutrophils (Bld) [#/Vol] Neutrophils [#/volume] in Blood by Automated count 1.8-7.7 [facility] Neutrophils/100 WBC Auto (Bl d)Ordered By: Lynnette Chapman on 08-18-2024 Neutrophils/100 WBC (Bld) Automated neutrophil % . [facility] No Panel InformationOrdered By: Lynnette Chapman on 08-18-2024 Estimated GFR (CKD-EPI) > 60.0 mL/Min [facility] Creatinine Clearance (Chem 95.72 [facility] Nucleated erythrocytes [Pres ence] in Blood by Automated countOrdered By: Lynnette Chapman on 08-18-2024 Nucleated RBC Auto Ql (Bld) Nucleated erythrocytes [Presence] in Blood by Automated count 0-0.5 [facility] Platelet mean volume Auto (B ld) [Entitic vol]Ordered By: Lynnette Chapman on 08-18-2024 Platelet mean volume (Bld) [Entitic vol] Platelet mean volume [Entitic volume] in Blood by Automated count 6.3-10.7 [facility] Platelets Auto (Bld) [#/Vol] Ordered By: Lynnette Chapman on 08-18-2024 Platelets (Bld) [#/Vol] Platelets [#/volume] in Blood by Automated count 150-450 [facility] Potassium [Moles/volume] in Serum or PlasmaOrdered By: Lynnette Chapman on 08-18-2024 Potassium [Moles/Vol] Potassium [Moles/v olume] in Serum or Plasma 3.5-5.1 [facility] Protein [Mass/volume] in Ser um or PlasmaOrdered By: Lynnette Chapman on 08-18-2024 Protein [Mass/Vol] Protein [Mass/volume ] in Serum or Plasma 6.4-8.9 [facility] Prothrombin Time INRon 11-18 -2024 INR Coag (PPP) [Relative time] 1.0 {INR} Normal [facility] Comment on above: Result [...] heart valves: 3 - 4.5 PERFORMED BY: [place] [address] PATHOLOGIST HEEL PAINTER JANA OLMEDO M.D. Performed By: #### H S TROP, LIPASE, PT, BMP, HEPATIC, CK, CBC, BNP #### [facility] [address] [place] [address] PT Coag (PPP) [Time] 11.7 s Normal 9.0-12.9 [facility] Comment on above: Result Comment: A he matocrit value greater than 55% may lead to inaccurate results in coagulation testing. Patients having hematocrit values >55% require a special collection tube for coagulation studies. Please contact the laboratory at [phone] for redraw instructions. Performed By: #### H S TROP, LIPASE, PT, BMP, HEPATIC, CK, CBC, BNP #### [facility] [address] [place], [place] [id number] [facility] Prothrombin time (PT)Ordered By: Lynnette Chapman on 08-18-2024 PT Coag (PPP) [Time] Prothrombin time (PT) 9.0- 12.9 [facility] Comment on above: A hematocrit value g reater than 55% may lead to inaccurate results in coagulation testing. Patients having hematocrit values >55% require a special collection tube for coagulation studies. Please contact the laboratory at [phone] for redraw instructions. RBC Auto (Bld) [#/Vol]Ordere d By: Lynnette Chapman on 08-18-2024 RBC (Bld) [#/Vol] Erythrocytes [#/volu me] in Blood by Automated count 3.60-5.00 [facility] Serum or plasma albumin/glob ulin mass ratioOrdered By: Lynnette Chapman on 08-18-2024 Albumin/Globulin [Mass ratio] Serum or plasma albumin/globulin mass ratio [facility] Serum or plasma anion gap de terminationOrdered By: Lynnette Chapman on 08-18-2024 Anion gap [Moles/Vol] Serum or plasma an ion gap determination 6.0-15.0 [facility] Serum or plasma non-glucuron idated bilirubin measurement (mass/volume)Ordered By: Lynnette Chapman on 08-18-2024 Bilirubin.indirect [Mass/Vol] Serum or plasma non-glucuronidated bilirubin measurement (mass/volume) [facility] Sodium [Moles/volume] in Ser um or PlasmaOrdered By: Lynnette Chapman on 08-18-2024 Sodium [Moles/Vol] Sodium [Moles/volume ] in Serum or Plasma 136-145 [facility] Troponin I High Sensitivityo n 08-18-2024 Troponin I High Sensitivity 4.7 pg/mL Normal 0.0-15.0 [facility] Comment on above: Result Comment: PERF ORMED BY: [facility] [address] [place] [address] PATHOLOGIST HEEL PAINTER JANA OLMEDO M.D. Performed By: #### H S TROP ####[place] [id number] [facility] Troponin I High Sensitivity 5.1 pg/mL Normal 0.0-15.0 [facility] Comment on above: Result Comment: PERF ORMED BY: [facility] [address] [place] [address] PATHOLOGIST HEEL PAINTER JANA OLMEDO M.D. Performed By: #### H S TROP, LIPASE, PT, BMP, HEPATIC, CK, CBC, BNP ####[place] [id number] [facility] Troponin I.cardiac [Mass/vol ume] in Serum or Plasma by Detection limit <= 0.01 ng/Ordered By: Lynnette Chapman on 08-18-2024 Troponin I.cardiac DL <= 0.01 ng/mL [Mass/Vol] Troponin I.cardiac [Mass/volume] in Serum or Plasma by Detection limit <= 0.01 ng/ 0.0-15.0 [facility] Urea nitrogen [Mass/volume] in Serum or PlasmaOrdered By: Lynnette Chapman on 08-18-2024 Urea nitrogen [Mass/Vol] Urea nitrogen [Mass/volume] in Serum or Plasma 7-25 [facility] WBC Auto (Bld) [#/Vol]Ordere d By: Lynnette Chapman on 08-18-2024 WBC (Bld) [#/Vol] Leukocytes [#/volume ] in Blood by Automated count 3.8-11.6 [facility] XR chest 2V*on 08-18-2024 XR chest 2V* [facility] [facility] [place] [address] [place] [address] XRay Report Signed Patient: Jose Alberto Saleem MR#: [id number] : 1965 Acct:[id number] Age/Sex: 59 / F ADM Date: 08/18/24 Loc: Room: [address] [place] [address] Type: ADM INOo Attending Dr: Donis Arroyo [...] Thelma Wick M.D.08/19/2024 12:10 AM Dictation Location: [place] [address] Transcribed By: [facility] 08/19/24 001 Dictated By: Thelma Wick MD 08/18/242210 Signed By: 08/19/24 001 Normal [facility] Reminderson 08-05-2024 Reminders Reminders From: Magdalena Longoria To: EU - Administrative; Sent: 08/05/2024 13:08:24 EST Show up: 03/01/2025 13:08:00 EDT Subject: 1 yr reminder Due Date/Time: 08/01/2025 13:08:00 EDT Reminder/Recall Patient needs scheduled with [facility] for a 1 yr f/u with KUB Normal [facility] Urology Office/Clinic Noteon 08-05-2024 Urology Office/Clinic Note [...] Myrbetriq from 25mg to 50mg qd Ordered: 25643 Measure Post Void residual urine and/or bladder capacity by US- non-imaging E&M of Est. Patient Moderate 30-39 Min 23804 Urnls Dip Stick Auto w/o Microscopy POC 71442 2. Urethral pain (R39.89: Other symptoms and [...] day(s), # 90 tab(s), Refills(s) 3, Pharmacy: [facility] [id number], 160, cm, 08/05/24 11:29:00 EST, Height/Length Dosing, 74.2, kg, 08/05/24 11:29:00 EST, Weight Dosing tamsulosin, 0.4 mg = 1 cap(s), Oral, Daily, # 90 cap(s), Refills(s) 3, Pharmacy: [facility], 160, cm, 08/05/24 11:29:00 EST, Height/Length Dosing, 74.2, kg, 08/05/24 11:29:00 EST, Weight Dosing Follow-up With When Contact Information JENNIFER MARTINO PA-C, URL Within 1 year Additional Instructions: Patient Education Kidney Stones, Vrvn-vz-Iqtx Problem List/Past Medical History Ongoing Anticoagulated Feeling (more content not included)... Normal [facility] Comment on above: Result Comment: Elec [...] wk f/u. Appointment due by 06/19/2024 [place] with [facility] PT SCHEDULED JUL 03, 2024 Normal [facility] Urology Office/Clinic Noteon 04-10-2024 Urology Office/Clinic [...] E&M of Est. Patient High 40-54 Min 96211 Urnls Dip Stick Auto w/o Microscopy POC 10408 2. OAB (overactive bladder) (N32.81: Overactive bladder) [...] E&M of Est. Patient High 40-54 Min 73052 3. Urethral pain (R39.89: Other symptoms and [...] E&M of Est. Patient High 40-54 Min 65939 Orders: estradiol topical, See Instructions, 42.5 gm, Refill(s) 6, apply a pea-sized amount vaginally and around the urethra nightly x 3 weeks, then 3x per week thereafter, [facility][id number], 160, cm, 04/10/24 15:13:00 EDT, Height/Length Dosing, 74, kg, 04/10/24 15:13... mirabegron, 25 mg = 1 tab(s), Oral, Daily, do not fill both mirabegron AND vibegron. only fill whichever has lower co-pay., X 30 day(s), # 30 tab(s), Refills(s) 11, Pharmacy: [facility] #[id number], 160, cm, 04/10/24 15:13:00 EDT, Height/Length Dosing, 74, k... vibegron, 75 mg = 1 tab(s), Oral, Daily, X 30 day(s), # 30 tab(s), Refills(s) 11, Pharmacy: [facility] #[id number], 160, cm, 04/10/24 15:13:00 EDT, Height/Length Dosing, 74, kg, 04/10/24 15:13:00 EDT, Weight Dosing Total time spent reviewing previous notes/results/external documents, preparing the chart, conducting the encounter with the patient and family, ordering tests/medications, and documenting the encounter was 40 minutes. Follow-up With When Contact Information JENNIFER MARTINO PA-C, URL Within 3 months [address] [place] [address] Additional Instructions: Patient Education Kidney Stones, Dvoz-im-Uhln Problem List/Past Medical History Ongoing Anticoagulated Feeling of incomplete b (more content not included)... Normal [facility] Comment on above: Result Comment: Elec tronically Signed By: JENNIFER MARTINO PA-C\.br\Date and Time Signed: 04/10/24 16:09 EDT Glucose Glucometer (BldC) [M ass/Vol]on 03-06-2024 Glucose [Mass/Vol] 79 mg/dL Normal 65-99 [facility] Scheduled EGD/EUS 03/06/24 @1130, PTH, Dr. Cesar, PAT ph: 02/29/24 @1000, #[id number], Clinic appt 02/27/24 w/ Sherita. Normal [facility] [id number] 2023 ALPHA-1 ANTITRYPSIN 145 mg/dL Normal 90-200 [facility] Comment on above: Result Comment: To c onvert to umol/L, multiply mg/dL by 0.185 Performed By: [facility] [address] [place] [address] Lobster Man: Sarwat Gorman MD, PhD CLIA Number: [id number] Performed By: #### L [id number] #### [facility] (BEAKER) [address] [place] [address] ANAon 02-27-2024 CHAY TITER <1:40 Normal <=1:40 [facility] Comment on above: Result Comment: Test performed using BRIJESH IFA CHAY Hep-2 Test, a pre-standardized assay designed for the qualitative and semi-quantitative detection of antinuclear antibodies. Performed By: #### L [id number] #### [facility] (BEAKER) [address] [place] [address] ANTI-SMOOTH MUSCLE ANTIBODY TITERon 02-27-2024 SMOOTH MUSCLE AB, IGG TITER <1:20 Normal <1:20 [facility] Comment on above: Result Comment: INTE RPRETIVE INFORMATION: Smooth Muscle Ab, IgG Titer Less than 1:20 ........ Negative - No antibody detected. 1:20 - 1:80 .......... Weak Positive - Suggest repeat in two to three weeks with fresh specimen. 1:160 or greater ...... Positive - Suggestive of autoimmune hepatitis or chronic active hepatitis. Performed By: [facility] [address] [place] [id number] Lobster Man: Sarwat Gorman MD, PhD CLIA Number: [id number] Performed By: #### L [id number] #### [facility] ([facility]) [address] [place] [address] CBC WITH AUTO DIFFERENTIALon 02-27-2024 Basophils (Bld) [#/Vol] 0.01 10*3/uL Normal 0.00-0.20 [facility] Comment on above: Performed By: #### L [id number] #### [facility] ([facility]) [address] [facility] [place] [address] Basophils/100 WBC (Bld) 0.2 % Normal 0.0-1.0 [facility] Comment on above: Performed By: #### L [id number] #### [facility] ([facility]) [address] [place] [address] Eosinophils (Bld) [#/Vol] 0.17 10*3/uL Normal 0.00-0.50 [facility] Comment on above: Performed By: #### L [id number] #### [facility] ([facility]) [address] [facility] [place] [address] Eosinophils/100 WBC (Bld) 3.2 % Normal 0.0-6.0 [facility] Comment on above: Performed By: #### L [id number] #### [facility] ([facility]) [address] [place] [address] Erythrocyte distribution width (RBC) [Ratio] 12.6 % Normal 11.5-15.0 [facility] Comment on above: Performed By: #### L [id number] #### [facility] ([facility]) [address] [place] [address] ERYTHROCYTE MEAN CORPUSCULAR HEMOGLOBIN CONCENTRATION (G/DL) BY AUTOMATED 33.6 g/dL Normal 32.0-35.0 [facility] Comment on above: Performed By: #### L [id number] #### [facility] ([facility]) [address] [facility] [place] [address] Hematocrit (Bld) [Volume fraction] 44.0 % Normal 36.0-48.0 [facility] Comment on above: Performed By: #### L [id number] #### [facility] (BEAKER) [address] [place] [address] Hemoglobin (Bld) [Mass/Vol] 14.8 g/dL Normal 12.0-15.0 [facility] Comment on above: Performed By: #### L [id number] #### [facility] ([facility]) [address] [place] [address] Immature granulocytes (Bld) [#/Vol] 0.01 10*3/uL Normal 0.00-0.20 [facility] Comment on above: Performed By: #### L [id number] #### [facility] ([facility]) [address] [place] [address] Immature granulocytes/100 WBC (Bld) 0.2 % Normal 0.0-1.0 [facility] Comment on above: Performed By: #### L [id number] #### [facility] ([facility]) [address] [place] [address] Lymphocytes (Bld) [#/Vol] 1.19 10*3/uL Low 1.20-4.00 [facility] Comment on above: Performed By: #### L [id number] #### [facility] (BEAKER) [address] [place] [address] Lymphocytes/100 WBC (Bld) 22.3 % Normal 20.0-45.0 [facility] Comment on above: Performed By: #### L [id number] #### [facility] (BEAKER) [address] [place] [address] MCH (RBC) [Entitic mass] 30.2 pg Normal 27.0-33.0 [facility] Comment on above: Performed By: #### L [id number] #### [facility] (BEAKER) [address] [place] [address] MCV (RBC) [Entitic vol] 89.8 fL Normal 82.0-98.0 [facility] Comment on above: Performed By: #### L [id number] #### [facility] ([facility]) [address] [place] [address] Monocytes (Bld) [#/Vol] 0.53 10*3/uL Normal 0.10-1.00 [facility] Comment on above: Performed By: #### L [id number] #### [facility] ([facility]) [address] [place] [address] Monocytes/100 WBC (Bld) 9.9 % Normal 5.0-12.0 [facility] Comment on above: Performed By: #### L [id number] #### [facility] ([facility]) [address] [place] [address] Neutrophils (Bld) [#/Vol] 3.42 10*3/uL Normal 1.60-7.60 [facility] Comment on above: Performed By: #### L [id number] #### [facility] ([facility]) [address] [place] [address] Neutrophils/100 WBC (Bld) 64.2 % Normal 40.0-72.0 [facility] Comment on above: Performed By: #### L [id number] #### [facility] ([facility]) [address] [place] [address] NRBC (PER 100 WBCS) BY AUTOMATED COUNT 0.0 % Normal 0 [facility] Comment on above: Performed By: #### L [id number] #### [facility] ([facility]) [address] [place] [address] PLATELETS (10*3/UL) IN BLOOD AUTOMATED COUNT 198 10*3/uL Normal 150-400 [facility] Comment on above: Performed By: #### L [id number] #### [facility] ([facility]) [address] [place] [address] RBC (Bld) [#/Vol] 4.90 10*6/uL Normal 3.80-5.00 [facility] Comment on above: Performed By: #### L [id number] #### [facility] ([facility]) [address] [place] [address] WBC (Bld) [#/Vol] 5.33 10*3/uL Normal 4.00-10.60 [facility] Comment on above: Performed By: #### L [id number] #### [facility] ([facility]) [address] [place] [address] COMPREHENSIVE METABOLIC PANE Curtis 02-27-2024 Albumin [Mass/Vol] 4.4 g/dL Normal 3.5-5.7 [facility] Comment on above: Performed By: #### L [id number] #### [facility] ([facility]) [address] [place] [address] ALP [Catalytic activity/Vol] 84 U/L Normal 34-104 [facility] Comment on above: Performed By: #### L [id number] #### [facility] ([facility]) [address] [place] [address] ALT [Catalytic activity/Vol] 43 U/L Normal 7-52 [facility] Comment on above: Performed By: #### L [id number] #### [facility] ([facility]) [address] [place] [address] Anion gap [Moles/Vol] 11 mmol/L Normal 7-20 [facility] Comment on above: Performed By: #### L [id number] #### [facility] ([facility]) [address] [place] [address] AST [Catalytic activity/Vol] 33 U/L Normal 13-39 [facility] Comment on above: Performed By: #### L [id number] #### [facility] ([facility]) [address] [place] [address] Bilirubin [Mass/Vol] 0.4 mg/dL Normal 0.3-1.0 [facility] Comment on above: Performed By: #### L [id number] #### [facility] ([facility]) [address] [place] [address] Calcium [Mass/Vol] 9.9 mg/dL Normal 8.6-10.3 [facility] Comment on above: Performed By: #### L [id number] #### [facility] (BEAKER) [address] [place] [address] Chloride [Moles/Vol] 102 mmol/L Normal 98-107 [facility] Comment on above: Performed By: #### L [id number] #### [facility] ([facility]) [address] [place] [address] CO2 [Moles/Vol] 29 mmol/L Normal 21-31 [facility] Comment on above: Performed By: #### L [id number] #### [facility] ([facility]) [address] [place] [address] Creatinine [Mass/Vol] 0.62 mg/dL Normal 0.60-1.20 [facility] Comment on above: Performed By: #### L [id number] #### [facility] ([facility]) [address] [place] [address] GLOMERULAR FILTRATION RATE ML/MIN/1.73 SQ M.PREDICTED 102.5 mL/min/1.73m*2 Normal >60.0 [facility] Comment on above: Result Comment: The [facility]???s estimated glomerular filtration rate (eGFR) will no [...] individuals. Performed By: #### L [id number] #### [facility] ([facility]) [address] [place] [address] Glucose [Mass/Vol] 90 mg/dL Normal 70-100 [facility] Comment on above: Performed By: #### L [id number] #### [facility] (BEAKER) [address] [place] [address] Potassium [Moles/Vol] 4.2 mmol/L Normal 3.5-5.1 [facility] Comment on above: Performed By: #### L [id number] #### [facility] (BEAKER) [address] [place] [address] Protein [Mass/Vol] 6.9 g/dL Normal 6.0-8.3 [facility] Comment on above: Performed By: #### L [id number] #### [facility] ([facility]) [address] [place] [address] Sodium [Moles/Vol] 138 mmol/L Normal 136-145 [facility] Comment on above: Performed By: #### L [id number] #### [facility] ([facility]) [address] [place] [address] Urea nitrogen [Mass/Vol] 27 mg/dL High 7-25 [facility] Comment on above: Performed By: #### L [id number] #### [facility] ([facility]) [address] [place] [address] UREA NITROGEN/CREATININE (MASS RATIO) IN SER/PLAS 43.5 Normal [facility] Comment on above: Performed By: #### L [id number] #### [facility] ([facility]) [address] [place] [address] COPPER, SERUMon 02-27-2024 COPPER 125.0 ug/dL Normal 80.0-155.0 [facility] Comment on above: Result Comment: [...] developed and its performance characteristics determined by [facility]. It has not been cleared or approved by the [place] Food and Drug Administration. This test was performed in a CLIA certified laboratory and is intended for clinical purposes. Performed By: [facility] [address] [place] [address] Lobster Man: Sarwat Gorman MD, PhD CLIA Number: [id number] Performed By: #### L [id number] #### [facility] ([facility]) [address] [place] [address] FERRITINon 02-27-2024 FERRITIN (NG/ML) IN SER/PLAS 32.0 ng/mL Normal 11.0-307.0 [facility] Comment on above: Performed By: #### L [id number] #### [facility] ([facility]) [address] [place] [address] FOLATEon 02-27-2024 FOLATE (NG/ML) IN SER/PLAS 39.0 ng/mL Normal 6.6-1000 [facility] Comment on above: Performed By: #### L [id number] #### [facility] ([facility]) [address] [place] [address] HEMOGLOBIN A1Con 02-27-2024 Glucose [Mass/Vol] 100 mg/dL Normal [facility] Comment on above: Performed By: #### L [id number] #### [facility] ([facility]) [address] [place] [address] HbA1c (Bld) [Mass fraction] 5.1 % Normal 4.0-6.0 [facility] Comment on above: Performed By: #### L [id number] #### [facility] ([facility]) [address] [place] [address] HEPATITIS PANEL, ACUTEon HEPATITIS A VIRUS IGM AB PRESENCE IN SER/PLAS Non-Reactive Normal Nonreactive [facility] Comment on above: Performed By: #### L [id number] #### [facility] ([facility]) [address] [place] [address] HEPATITIS B VIRUS CORE AB (PRESENCE) IN SER/PLAS BY IMM Non-Reactive Normal Nonreactive [facility] Comment on above: Performed By: #### L [id number] #### [facility] ([facility]) [address] [place] [address] HEPATITIS B VIRUS SURFACE AG PRESENCE IN SERUM Non-Reactive Normal Nonreactive [facility] Comment on above: Performed By: #### L [id number] #### [facility] ([facility]) [address] [place] [address] HEPATITIS C VIRUS AB PRESENCE IN SERUM Non-Reactive Normal Nonreactive [facility] Comment on above: Performed By: #### L [id number] #### [facility] ([facility]) [address] [place] [address] IGAon 02-27-2024 Magnesium [Mass/Vol] 108 mg/dL Normal 60-413 [facility] Comment on above: Performed By: #### L [id number] #### [facility] ([facility]) [address] [place] [address] IGG 1, 2, 3, AND 4on 024 IgG subclass 1 (S) [Mass/Vol] 293 mg/dL Normal 240-1118 [facility] Comment on above: Result Comment: REFE RENCE INTERVAL: Immunoglobulin G Subclass 1 The total IgG (mg/dL) can be derived from the sum of the subclass IgG1, IgG2, IgG3, and IgG4 values. However, a confirmatory and more precise total IgG is available by the turbidimetric method of quantitation for total IgG. Refer to test Immunoglobulin G, Serum ([id number]). Access complete set of age- and/or gender-specific reference intervals for this test in the [facility] Test Directory ([employer]). Performed By: #### L [id number] #### [facility] ([facility]) [address] [place] [address] IgG subclass 2 (S) [Mass/Vol] 160 mg/dL Normal 124-549 [facility] Comment on above: Result Comment: REFE RENCE INTERVAL: Immunoglobulin G Subclass 2 Access complete set of age- and/or gender-specific reference intervals for this test in the [facility] Test Directory ([employer]). Performed By: #### L [id number] #### [facility] ([facility]) [address] [place] [address] IgG subclass 3 (S) [Mass/Vol] 32 mg/dL Normal 21-134 [facility] Comment on above: Result Comment: REFE RENCE INTERVAL: Immunoglobulin G Subclass 3 Access complete set of age- and/or gender-specific reference intervals for this test in the [facility] Test Directory ([employer]). Performed By: #### L [id number] #### [facility] ([facility]) [address] [place] [address] IgG subclass 4 (S) [Mass/Vol] 21 mg/dL Normal 1-123 [facility] Comment on above: Result Comment: REFE RENCE INTERVAL: Immunoglobulin G Subclass 4 Access complete set of age- and/or gender-specific reference intervals for this test in the [facility] Test Directory ([employer]). Performed By: [facility] [address] [place] [address] Lobster Man: Sarwat Gorman MD, PhD CLIA Number: [id number] Performed By: #### L [id number] #### [facility] ([facility]) [address] [place] [address] IRON AND TIBCon 02-27-2024 IRON (UG/DL) IN SER/PLAS 56 ug/dL Normal 50-212 [facility] Comment on above: Performed By: #### L [id number] #### [facility] ([facility]) [address] [place] [address] IRON BINDING CAPACITY (UG/DL) IN SER/PLAS 364 ug/dL Normal 250-450 [facility] Comment on above: Performed By: #### L [id number] #### [facility] ([facility]) [address] [place] [address] IRON BINDING CAPACITY.UNSATURATED (UG/DL) IN SER/PLAS 308.0 ug/dL Normal 155.0-355.0 [facility] Comment on above: Performed By: #### L [id number] #### [facility] (BEAKER) [address] [facility] [place] [address] IRON SATURATION (%) IN SER/PLAS 15 % Low 20-50 [facility] Comment on above: Performed By: #### L [id number] #### [facility] (BEAKER) [address] [facility] [place] [address] LIPID PANELon 02-27-2024 CHOL/HDL 2.9 mg/dL Normal [facility] Comment on above: Performed By: #### L [id number] #### [facility] (BEAKER) [address] [facility] [place] [address] Cholesterol [Mass/Vol] 111 mg/dL Low 120-200 [facility] Comment on above: Performed By: #### L [id number] #### [facility] (BEAKER) [address] [facility] [place] [address] Magnesium [Mass/Vol] 144 mg/dL Normal 40-149 [facility] Comment on above: Result Comment: TRIG LYCERIDE REFERENCE RANGE: 20 YEARS AND OLDER CARDIOVASCULAR RISK LESS THAN 150 mg/dL LOW RISK 150 TO 199 mg/dL BORDERLINE RISK 200 mg/dL AND GREATER HIGH RISK Performed By: #### L [id number] #### [facility] (BEAKER) [address] [place] [address] Magnesium [Mass/Vol] 44 mg/dL Normal 0-160 [facility] Comment on above: Performed By: #### L [id number] #### [facility] (BEAKER) [address] [facility] [place] [place] [address] Magnesium [Mass/Vol] 38 mg/dL Normal 23-92 [facility] Comment on above: Performed By: #### L [id number] #### [facility] (BEAKER) [address] [place] [address] NON HDL CHOL. (LDL+VLDL) 73 Normal [facility] Comment on above: Performed By: #### L [id number] #### [facility] (BEAKER) [address] [place] [address] TOTAL VLDL-C 29 mg/dL Normal 0-40 [facility] Comment on above: Performed By: #### L [id number] #### [facility] ([facility]) [address] [facility] [place] [address] LIVER FIBROSIS CHRONIC VIRAL HEPATITISon 02-27-2024 [id number] , FIBROMETER 328 mg/dL High 131-293 [facility] Comment on above: Performed By: #### L [id number] #### [facility] ([facility]) [address] [place] [address] ALT [Catalytic activity/Vol] 57 U/L High 5-40 [facility] Comment on above: Performed By: #### L [id number] #### [facility] ([facility]) [address] [place] [address] Amylase [Catalytic activity/Vol] 18 U/L Normal 7-33 [facility] Comment on above: Performed By: #### L [id number] #### [facility] ([facility]) [address] [place] [address] AST [Catalytic activity/Vol] 41 U/L High 9-40 [facility] Comment on above: Performed By: #### L [id number] #### [facility] ([facility]) [address] [place] [address] CIRRHOMETER PATIENT SCORE 0.08 Normal [facility] Comment on above: Performed By: #### L [id number] #### [facility] ([facility]) [address] [facility] [place] [address] EER FIBROMETER REPORT See Note Normal [facility] Comment on above: Result Comment: Auth orized individuals can access the [facility] Enhanced Report using the following link: [email or web address] Performed By: #### L [id number] #### [facility] ([facility]) [address] [facility] [place] [address] FIBROMETER INTERPRETATION See Report Normal [facility] Comment on above: Result Comment: [17] [13] INTERPRETIVE INFORMATION: Fibrometer Interpretation Calculations for the final report are based on accurate data for age, gender, and platelet count. If any of this information needs to be corrected, please contact [employer] to request a recalculation. Client [...] developed and its performance characteristics determined by [facility]. It has not been cleared or approved by the [place] Food and Drug Administration. This test was performed in a CLIA certified laboratory and is intended for clinical purposes. Performed By: [facility] [address] [place] [id number] Lobster Man: Sarwat Gorman MD, PhD CLIA Number: [id number] Performed By: #### L [id number] #### [facility] ([facility]) [address] [place] [address] FIBROMETER PATIENT SCORE 0.62 Normal [facility] Comment on above: Performed By: #### L [id number] #### [facility] ([facility]) [address] [place] [address] FIBROMETER PLATELET COUNT 198 k/uL Normal [facility] Comment on above: Performed By: #### L [id number] #### [facility] ([facility]) [address] [place] [address] FIBROMETER PROTHROMBIN INDEX 81 % Low 90-120 [facility] Comment on above: Performed By: #### L [id number] #### [facility] ([facility]) [address] [place] [address] FIBROSIS METAVIR CLASSIFICATION F2[F1-F3] Normal [facility] Comment on above: Result Comment: [...] possible Performed By: #### L [id number] #### [facility] ([facility]) [address] [place] [address] INFLAMETER METAVIR CLASSIFICATION A1/A2 [facility] Comment on above: Result Comment: INTE RPRETIVE INFORMATION: InflaMeter Metavir Classification InflaMeter (activity score) comments A0/A1 Equal probability between A0 and A1 A1/A2 Equal probability between A1 and A2 A2/A3 Equal probability between A2 and A3 Performed By: #### L [id number] #### [facility] ([facility]) [address] [place] [address] INFLAMETER PATIENT SCORE 0.62 Normal [facility] Comment on above: Performed By: #### L [id number] #### [facility] ([facility]) [address] [place] [address] Urea nitrogen [Mass/Vol] 28 mg/dL High 7-20 [facility] Comment on above: Performed By: #### L [id number] #### [facility] ([facility]) [address] [facility] [place] [address] Labon 02-27-2024 Lab [id number] Diana Saleem tte 1965 Provider Department Center 02/27/2024 [facility] RESOURCE DRAW Medical Pavi Family History Problem Relation Age of Onset Hyperlipidemia Mother Hyperlipidemia Father Hyperlipidemia Brother Heart attack Brother Family Status - Relation Status Age at Mother Father Brother Brother Normal [facility] MITOCHONDRIAL ANTIBODIES, M2 on 02-27-2024 MITOCHONDRIAL M2 ANTIBODY 7.2 Units Normal 0.0-24.9 [facility] Comment on above: Result Comment: REFE RENCE [...] does not rule out PBC. Performed By: [facility] [address] [place] [address] Lobster Man: Sarwat Gorman MD, PhD CLIA Number: [id number] Performed By: #### L [id number] #### [facility] ([facility]) [address] [facility] [place] [address] Office Visiton 02-27-2024 Follow-up visit [id number] Diana Saleem tte 1965 Provider Department Center 02/27/2024 [facility]-DANIELLE C[facility] Family History Problem Relation Age of Onset Hyperlipidemia Mother Hyperlipidemia Father Hyperlipidemia Brother Heart attack Brother Family Status - Relation Status Age at Mother Father Brother Brother Level of Service:55977 [place] OFFICE/OUTPATIENT NEW MODERATE MDM 45 MINUTES (GC) Reason for Visit and Comments: New Patient [632] Pancreatitis [672853] Normal [facility] PROTIME-INRon 02-27-2024 INR IN PPP BY COAGULATION ASSAY 1.08 Normal 0.90-1.10 [facility] Comment on above: Result Comment: [facility] P RECOMMENDED INR FOR WARFARIN THERAPY CONDITION [...] 1995;108:231S-246S. Performed By: #### L [id number] #### [facility] ([facility]) [address] [place] [address] PROTHROMBIN TIME (PT) IN PPP BY COAGULATION ASSAY 14.0 Seconds Normal 12.3-14.8 [facility] Comment on above: Performed By: #### L [id number] #### [facility] ([facility]) [address] [place] [address] TISSUE TRANSGLUTAMINASE, IGA on 02-27-2024 TISSUE TRANSGLUTAMINASE, IGA <1.02 Normal 0.00-4.99 [facility] Comment on above: Result Comment: [...] indicate a response to therapy. Performed By: [facility] [address] [place] [address] Lobster Man: Sarwat Gorman MD, PhD CLIA Number: [id number] Performed By: #### L [id number] #### [facility] ([facility]) [address] [place] [address] TSH3 REFLEX TO FT4on 024 THYROTROPIN (MIU/L) IN SER/PLAS BY DETECTION LIMIT <= 0.05 MIU/L 2.02 mIU/L Normal 0.34-5.60 [facility] Comment on above: Performed By: #### L [id number] #### [facility] ([facility]) [address] [place] [address] VITAMIN B12on 02-27-2024 Cobalamin (Vitamin B12) [Mass/Vol] 1862 pg/mL High 180-914 [facility] Comment on above: Result Comment: REFE RENCE RANGES: 180-914 pg/mL Normal 145-179 pg/mL Indeterminate <145 pg/mL Deficient Performed By: #### L [id number] #### [facility] ([facility]) [address] [place] [address] VITAMIN D 25 HYDROXYon 02-26 CALCIDIOL (25 [place] VITAMIN D3) (NG/ML) IN SER/PLAS 62.1 ng/mL Normal 30.0-80.0 [facility] Comment on above: Result Comment: >80. 0 Toxicity possible Performed By: #### L [id number] #### [facility] ([facility]) [address] [place] [address] Orders Onlyon 02-12-2024 Orders Only [id number] Diana Saleem ttrene 1965 F Date Provider Department Center 02/12/2024 [id number], HISTORICAL MP GI Medical Pavi No family history on file Normal [facility] Lab Reportson 01-23-2024 Lab Reports [id number]#1.00TIF F Normal [facility] Lab Reports [id number]#1.00TIF F Normal [facility] Lab Reportson 01-22-2024 Lab Reports [id number]#1.00TIF F Normal [facility] Lab Reports [id number]#1.00TIF F Normal [facility] Lab Reports [id number]#1.00TIF F [facility] RAD - MISCon 01-22-2024 RAD - MISC [id number]#1.00TIF F Normal [facility] Surgical Pathology Reporton 06-18-2023 Surgical Pathology Report (NOTE) Path Number: [id number] -- Diagnosis -- ENDOMETRIAL CURETTINGS: -BENIGN ENDOMETRIAL [...] Microscopic Description Microscopic examination performed. Processing Lab: [facility] [address] [place] [address] Interpretation Performed at [facility] [address] [place] [address] SURGICAL PATHOLOGY CONSULTATION Patient Name: JOSE ALBERTO SALEEM [facility] Rec: [id number] [facility] [address] [place], [place] [address] Normal [facility] US NON OB TRANSVAGINALon US NON [...] Gaby Tello DO 06/05/23 Final result Normal [facility] Ceruloplasminon 12-12-2022 Ceruloplasmin 30.6 mg/dL 19.0-39.0 mg/dL [facility] Other Ferritinon 12-12-2022 Ferritin [Mass/Vol] 43.3542707 ng/mL Normal 11.0 -306.8 ng/mL [facility] Other Hepatitis A Antibody Totalon 12-12-2022 Hepatitis A Antibody Total Negative . [facility] Other Hepatitis B Surface Antibody on 12-12-2022 Hepatitis B Surface Antibody Non-Reactive Non Reactive [facility] Other Immunoglobulin Javi 3 Immunoglobulin G 823 mg/dL 586-1602 mg/dL [facility] Other Liver-Kidney Microsomal Abon 12-12-2022 Liver-Kidney Microsomal Ab 1.1 0.0-20.0 [facility] Other Mitochondrial (M2) Antibodyo n 12-12-2022 Mitochondrial (M2) Antibody <20.0 0.0-20.0 [facility] Other Smooth Muscle Antibodyon Smooth Muscle Antibody 5 0-19 [facility] Other MR MRCPon 11-10-2022 MR MRCP [facility] Other MR MRCP [facility] Other MR MRCP [address] [facility] [place] [address] [facility] Other MR MRCP MRI Report [facility] Other MR MRCP Signed [facility] Other MR MRCP Patient: Danika Saleem MR#: [id number] [facility] Other MR MRCP 5[address] [facility] Other MR MRCP : 1965 Acct:[id number] [facility] Other MR MRCP Age/Sex: 57 / F ADM Date: 11/10/22 [facility] Other MRCP Loc: MR Room: Type: [facility] Other MR MRCP Attending Dr: Evert salinas MD [facility] Other MR MRCP Copies to: Evert daigle MD [facility] Other MRCP Ordering Provider: Marleny Bruno MD [facility] Other MR MRCP Date of Service: 11/10/22 [facility] Other MR MRCP MR/MR MRCP: Abdominal pain;Common bile duct dilatation;Elevated liver en [facility] Other MR MRCP MRCP [facility] Other MR MRCP CLINICAL DATA: [place] hayley lipase. Abnormal outside abdominal CT [facility] Other MR MRCP COMPARISON: CT abdom en 10/16/2022 [facility] Other MR MRCP Multiecho imaging of the abdomen was performed along with radial imaging of the biliary tree. [facility] Other MR MRCP The gallbladder surgically absent. There is no significant intrahepatic biliary dilatation. The [facility] Other MR MRCP common duct is sligh tly prominent measuring up to 6 mm. It tapers toward the ampulla. No in [facility] Other MR MRCP traluminal filling defects are identified to suggest choledocholithiasis. The pancreatic duct is [facility] Other MR MRCP also borderline prominent measuring 2 - 3 mm. No intrahepatic masses are identified. No pancreatic [facility] Other MR MRCP abnormalities are no hayley. The spleen and adrenal glands are within normal limits. There is no [facility] Other MR MRCP hydronephrosis. Ther e are right renal cysts. There is no aortic aneurysm. No adenopathy or [facility] Other MR MRCP ascites is seen. The re is no dilated bowel within the [id number]. [facility] Other MR MRCP M R/MR MRCP [facility] Other MR MRCP IMPRESSION: [facility] Other MR MRCP SLIGHTLY PROMINENT COMMON DUCT, WITHOUT CHOLEDOCHOLITHIASIS. THIS MAY RELATE TO PREVIOUS [facility] Other MR MRCP CHOLECYSTECTOMY. [facility] Other MR MRCP RIGHT RENAL CYSTS. [facility] Other MR MRCP NO OTHER SIGNIFICANT MRI FINDINGS. [facility] Other MR MRCP Impression dictated by: Thelma Wick M.D.11/10/2022 7:00 PM [facility] Other MR MRCP Dictation Location: [place] [address] [facility] Other MR MRCP Transcribed By: PWS 11/10/221899 [facility] Other MR MRCP Dictated By: Thelma Wick MD 11/10/221849 [facility] Other MR MRCP Signed By: [facility] Other MR MRCP 11/10/221899 [facility] Other Albumin [Mass/volume] in Ser um or PlasmaOrdered By: Evert Bruno on 11-01-2022 Albumin [Mass/Vol] 4.0 g/dL 3.2-5.5 [facility] Direct bilirubin measurement Ordered By: Evert Bruno on 11-01-2022 Bilirubin.direct [Mass/Vol] 0.1 mg/dL 0.0-0.4 [facility] Globulin Calc (S) [Mass/Vol] Ordered By: Evert Bruno on 11-01-2022 Globulin (S) [Mass/Vol] 2.5 g/dL [facility] Hepatic Panelon 11-01-2022 Albumin [Mass/Vol] 4.309595 g/dL Normal 3.2-5.5 g/dL N [facility] Other ALT [Catalytic activity/Vol] 94 U/L High 10-60 U/L [facility] Other Bilirubin [Mass/Vol] 0.3870945 mg/dL Normal 0.3- 1.2 mg/dL [facility] Other Bilirubin.indirect [Mass/Vol] 0.2604397 mg/dL Normal 0.0-0.4 mg/dL [facility] Other Protein [Mass/Vol] 6.783219 g/dL Normal 6.1-7.9 g/dL N [facility] Other Hepatic Panel 0.5 mg/dL [facility] Other Hepatic Panel 2.5 g/dL [facility] Other Protein [Mass/volume] in Ser um or PlasmaOrdered By: Imsara Bruno on 11-01-2022 Protein [Mass/Vol] 6.5 g/dL 6.1-7.9 [facility] Serum or plasma alanine li otransferase measurement without P-5'-P (enzymatic activiOrdered By: Imad Asaad on 11-01-2022 ALT No additional P-5'-P [Catalytic activity/Vol] 94 U/L 10-60 [facility] Serum or plasma albumin/glob ulin mass ratioOrdered By: ImAssemblage Asaad on 11-01-2022 Albumin/Globulin [Mass ratio] 1.6 {ratio} [facility] Serum or plasma alkaline monster sphatase measurement (enzymatic activity/volume)Ordered By: ImAssemblage Asaad on 11-01-2022 ALP [Catalytic activity/Vol] 93 U/L 32-92 [facility] Serum or plasma aspartate am inotransferase measurement (enzymatic activity/volume)Ordered By: ImAssemblage Asaad on 11-01-2022 AST [Catalytic activity/Vol] 66 U/L 10-42 [facility] Serum or plasma non-glucuron idated bilirubin measurement (mass/volume)Ordered By: Kabbage on 11-01-2022 Bilirubin.indirect [Mass/Vol] 0.5 mg/dL [facility] Serum or plasma total biliru bin measurement (mass/volume)Ordered By: ImAssemblage Asaad on 11-01-2022 Bilirubin [Mass/Vol] 0.6 mg/dL 0.3-1.2 [facility] CT ABDOMEN WO/W CONon 2022 CT ABDOMEN [...] JAE WILSON Date: 2022-10-17 08:23 Normal [facility] AMMONIAon 10-09-2022 Ammonia (P) [Moles/Vol] 10 umol/L Critically low 11-32 [facility] Comment on above: Performed By: #### A MY #### [facility] [address] [place] [address] Dr. Ayden Cam AMYLASEon 10-09-2022 Amylase [Catalytic activity/Vol] 144 U/L Critically high 25-115 [facility] Comment on above: Performed By: #### L IPA #### [facility] [address] [place] [address] Dr. Ayden Cam CBC AUTO DIFFon 10-09-2022 BASO # 0.0 103/ul Normal 0.0-0.1 [facility] Comment on above: Performed By: #### C BC #### [facility] [address] [place] [address] Dr. Ayden Cam Basophils/100 WBC (Bld) 0.2 % Normal 0.2-2.0 [facility] Comment on above: Performed By: #### C BC #### [facility] [address] [place] [address] Dr. Ayden Cam EO # 0.2 103/ul Normal 0.0-0.7 [facility] Comment on above: Performed By: #### C BC #### [facility] [address] [place] [address] Dr. Ayden Cam Eosinophils/100 WBC (Bld) 3.3 % Normal 0.9-7.0 [facility] Comment on above: Performed By: #### C BC #### [facility] [address] [place] [address] Dr. Ayden Cam Erythrocyte distribution width (RBC) [Ratio] 12.1 % Normal 11.0-15.0 [facility] Comment on above: Performed By: #### C BC #### [facility] [address] [place] [address] Dr. Ayden Cam Hematocrit (Bld) [Volume fraction] 40.0 % Normal 36.0-48.0 [facility] Comment on above: Performed By: #### C BC #### [facility] [address] [place] [address] Dr. Ayden Cam Hemoglobin (Bld) [Mass/Vol] 14.2 g/dL Normal 12.0-16.0 [facility] Comment on above: Performed By: #### C BC #### [facility] [address] [place] [address] Dr. Ayden Cam IG # 0.01 10e3/ul Normal 0.00-0.03 [facility] Comment on above: Performed By: #### C BC #### [facility] [address] [place] [address] Dr. Ayden Cam IG % 0.2 % Normal 0.0-0.5 [facility] Comment on above: Performed By: #### C BC #### [facility] [address] [place] [address] Dr. Ayden Cam LYMPH # 1.5 103/ul Normal 1.2-3.8 [facility] Comment on above: Performed By: #### C BC #### [facility] [address] [place] [address] Dr. Ayden Cam Lymphocytes/100 WBC (Bld) 24.2 % Normal 20.5-60.0 [facility] Comment on above: Performed By: #### C BC #### [facility] [address] [place] [address] Dr. Ayden Cam MANUAL DIFF REQ NO Normal [facility] Comment on above: Performed By: #### C BC #### [facility] [address] [place] [address] Dr. Ayden Cam MCH (RBC) [Entitic mass] 30.0 pg Normal 26.7-34.0 [facility] Comment on above: Performed By: #### C BC #### [facility] [address] [place] [address] Dr. Ayden Cam MCHC (RBC) [Mass/Vol] 35.5 g/dL Critically high 29.9-35.2 [facility] Comment on above: Performed By: #### C BC #### [facility] [address] [place] [address] Dr. Ayden Cam MCV (RBC) [Entitic vol] 84.4 fL Normal 81.0-99.0 [facility] Comment on above: Performed By: #### C BC #### [facility] [address] [place] [address] Dr. Ayden Cam MONO # 0.6 103/ul Normal 0.3-0.8 [facility] Comment on above: Performed By: #### C BC #### [facility] [address] [place] [address] Dr. Ayden Cam Monocytes/100 WBC (Bld) 10.3 % Normal 1.7-12.0 [facility] Comment on above: Performed By: #### C BC #### [facility] [address] [place] [address] Dr. Ayden Cam NEUT # 3.7 103/ul Normal 1.4-6.5 [facility] Comment on above: Performed By: #### C BC #### [facility] [address] [place] [address] Dr. Ayden Cam Neutrophils/100 WBC (Bld) 61.8 % Normal 43.0-75.0 [facility] Comment on above: Performed By: #### C BC #### [facility] [address] [place] [address] [address] Ayden Cam Platelet mean volume (Bld) [Entitic vol] 9.0 fL Critically low 9.5-13.5 [facility] Comment on above: Performed By: #### C BC #### [facility] [address] [place] [address] Dr. Ayden Cam PLT 191 103/ul Normal 150-450 [facility] Comment on above: Performed By: #### C BC #### [facility] [address] [place] [address] Dr. Ayden Cam RBC 4.74 106/ul Normal 4.20-5.40 [facility] Comment on above: Performed By: #### C BC #### [facility] [address] [place] [address] Dr. Ayden Cam WBC 6.0 103/ul Normal 4.0-11.0 [facility] Comment on above: Performed By: #### C BC #### [facility] [address] [place] [address] Dr. Ayden Cam LIPASEon 10-09-2022 Lipase [Catalytic activity/Vol] 168.0 U/L Normal 73.0-393.0 [facility] Comment on above: Performed By: #### L ACT #### [facility] [address] [place] [address] Dr. Ayden Cam PROF 14(COMP METB)on 023 Albumin [Mass/Vol] 3.6 g/dL Normal 3.4-5.0 [facility] Comment on above: Performed By: #### L IPA #### [facility] [address] [place] [address] Dr. Ayden Cam Albumin/Globulin [Mass ratio] 1.1 {ratio} Normal [facility] Comment on above: Performed By: #### L IPA #### [facility] [address] [place] [address] Dr. Ayden Cam ALP [Catalytic activity/Vol] 93 U/L Normal 46-116 [facility] Comment on above: Performed By: #### L IPA #### [facility] [address] [place] [address] [address] Ayden Cam ALT [Catalytic activity/Vol] 52 U/L Normal 14-59 [facility] Comment on above: Performed By: #### L IPA #### [facility] [address] [place] [address] [address] Ayden Cam Anion gap [Moles/Vol] 10.2 mmol/L Normal [place] Comment on above: Performed By: #### L IPA #### [facility] [address] [place] [address] [address] Ayden Cam AST [Catalytic activity/Vol] 33 U/L Normal 15-37 [facility] Comment on above: Performed By: #### L IPA #### [facility] [address] [place] [address] [address] Ayden Cam Bilirubin [Mass/Vol] 0.3 mg/dL Normal 0.2-1.0 [facility] Comment on above: Performed By: #### L IPA #### [facility] [address] [place] [address] [address] Ayden Cam Calcium [Mass/Vol] 9.4 mg/dL Normal 8.5-10.1 [facility] Comment on above: Performed By: #### L IPA #### [facility] [address] [place] [address] [address] Ayden Cam Chloride [Moles/Vol] 99 mmol/L Normal 98-107 [facility] Comment on above: Performed By: #### L IPA #### [facility] [address] [place] [address] [address] Ayden Cam CO2 [Moles/Vol] 33.7 mmol/L Critically high 21.0-32.0 [facility] Comment on above: Performed By: #### L IPA #### [facility] [address] [place] [address] [address] Ayden Cam Creatinine [Mass/Vol] 0.62 mg/dL Normal 0.55-1.02 [facility] Comment on above: Performed By: #### L IPA #### [facility] [address] [place] [address] [address] Ayden Cam EGFR-AF KOSOVAN >60 Normal >=60 [facility] Comment on above: Performed By: #### L IPA #### [facility] [address] [place] [address] Dr. Ayden Cam EGFR-NON AF KOSOVAN >60 Normal >=60 [facility] Comment on above: Performed By: #### L IPA #### [facility] [address] [place] [address] [address] Ayden Cam Globulin (S) [Mass/Vol] 3.4 g/dL Normal [facility] Comment on above: Performed By: #### L IPA #### [facility] [address] [place] [address] Dr. Ayden Cam Glucose [Mass/Vol] 105 mg/dL Normal 74-106 [facility] Comment on above: Performed By: #### L IPA #### [facility] [address] [place] [address] Dr. Ayden Cam Potassium [Moles/Vol] 3.9 mmol/L Normal 3.5-5.1 [facility] Comment on above: Performed By: #### L IPA #### [facility] [address] [place] [address] Dr. Ayden Cam Protein [Mass/Vol] 7.0 g/dL Normal 6.4-8.2 [facility] Comment on above: Performed By: #### L IPA #### [facility] [address] [place] [address] Dr. Ayden Cam Sodium [Moles/Vol] 139 mmol/L Normal 136-145 [facility] Comment on above: Performed By: #### L IPA #### [facility] [address] [place] [address] Dr. Ayden Cam Urea nitrogen [Mass/Vol] 28.0 mg/dL Critically high 7.0-18.0 [facility] Comment on above: Performed By: #### L IPA #### [facility] [address] [place] [address] Dr. Ayden Cam Urea nitrogen/Creatinine [Mass ratio] 45.2 mg/mg Normal [facility] Comment on above: Performed By: #### L IPA #### [facility] [facility] [address] [place] [address] Dr. Ayden Cam AMMONIAon 10-06-2022 Ammonia (P) [Moles/Vol] 16 umol/L Normal 11-32 [facility] Comment on above: Performed By: #### A MM #### [facility] [address] [place] [address] Dr. Ayden Cam AMYLASEon 10-06-2022 Amylase [Catalytic activity/Vol] 189 U/L Critically high 25-115 [facility] Comment on above: Performed By: #### L IPA #### [facility] [address] [place] [address] Dr. Ayden Cam CBC AUTO DIFFon 10-06-2022 BASO # 0.0 103/ul Normal 0.0-0.1 [facility] Comment on above: Performed By: #### C BC #### [facility] [address] [place] [address] Dr. Ayden Cam Basophils/100 WBC (Bld) 0.2 % Normal 0.2-2.0 [facility] Comment on above: Performed By: #### C BC #### [facility] [address] [place] [address] Dr. Ayden Cam EO # 0.3 103/ul Normal 0.0-0.7 [facility] Comment on above: Performed By: #### C BC #### [facility] [address] [place] [address] Dr. Ayden Cam Eosinophils/100 WBC (Bld) 5.2 % Normal 0.9-7.0 [facility] Comment on above: Performed By: #### C BC #### [facility] [address] [place] [address] Dr. Ayden Cam Erythrocyte distribution width (RBC) [Ratio] 12.3 % Normal 11.0-15.0 [facility] Comment on above: Performed By: #### C BC #### [facility] [address] [place] [address] Dr. Ayden Cam Hematocrit (Bld) [Volume fraction] 36.9 % Normal 36.0-48.0 [facility] Comment on above: Performed By: #### C BC #### [facility] [address] [place] [address] Dr. Ayden Cam Hemoglobin (Bld) [Mass/Vol] 12.4 g/dL Normal 12.0-16.0 [facility] Comment on above: Performed By: #### C BC #### [facility] [address] [place] [address] Dr. Ayden Cam IG # 0.01 10e3/ul Normal 0.00-0.03 [facility] Comment on above: Performed By: #### C BC #### [facility] [address] [place] [address] Dr. Ayden Cam IG % 0.2 % Normal 0.0-0.5 [facility] Comment on above: Performed By: #### C BC #### [facility] [address] [place] [address] Dr. Ayden Cam LYMPH # 1.8 103/ul Normal 1.2-3.8 [facility] Comment on above: Performed By: #### C BC #### [facility] [address] [place] [address] Dr. Ayden Cam Lymphocytes/100 WBC (Bld) 31.3 % Normal 20.5-60.0 [facility] Comment on above: Performed By: #### C BC #### [facility] [address] [place] [address] Dr. Ayden Cam MANUAL DIFF REQ NO Normal [facility] Comment on above: Performed By: #### C BC #### [facility] [address] [place] [address] Dr. Ayden Cam MCH (RBC) [Entitic mass] 30.0 pg Normal 26.7-34.0 [facility] Comment on above: Performed By: #### C BC #### [facility] [address] [place] [address] Dr. Ayden Cam MCHC (RBC) [Mass/Vol] 33.6 g/dL Normal 29.9-35.2 [facility] Comment on above: Performed By: #### C BC #### [facility] [address] [address] [address] Ayden Cam MCV (RBC) [Entitic vol] 89.1 fL Normal 81.0-99.0 [facility] Comment on above: Performed By: #### C BC #### [facility] [address] [address] [address] Ayden Cam MONO # 0.6 103/ul Normal 0.3-0.8 [facility] Comment on above: Performed By: #### C BC #### [facility] [address] [place] [address] Dr. Ayden Cam Monocytes/100 WBC (Bld) 10.1 % Normal 1.7-12.0 [facility] Comment on above: Performed By: #### C BC #### [facility] [address] [place] [address] Dr. Ayden Cam NEUT # 3.1 103/ul Normal 1.4-6.5 [facility] Comment on above: Performed By: #### C BC #### [facility] [address] [place] [address] Dr. Ayden Cam Neutrophils/100 WBC (Bld) 53.0 % Normal 43.0-75.0 [facility] Comment on above: Performed By: #### C BC #### [facility] [address] [address] [address] Ayden Cam Platelet mean volume (Bld) [Entitic vol] 9.4 fL Critically low 9.5-13.5 [facility] Comment on above: Performed By: #### C BC #### [facility] [address] [place] [address] Dr. Ayden Cam PLT 153 103/ul Normal 150-450 [facility] Comment on above: Performed By: #### C BC #### [facility] [address] [place] [address] Dr. Ayden Cam RBC 4.14 106/ul Critically low 4.20-5.40 [facility] Comment on above: Performed By: #### C BC #### [facility] [address] [place] [address] Dr. Ayden Cam WBC 5.8 103/ul Normal 4.0-11.0 [facility] Comment on above: Performed By: #### C BC #### [facility] [address] [place] [address] Dr. Ayden Cam LIPASEon 10-06-2022 Lipase [Catalytic activity/Vol] 166.0 U/L Normal 73.0-393.0 [facility] Comment on above: Performed By: #### L IPA #### [facility] [address] [place] [address] Dr. Ayden Cam LIVER PROFILEon 10-06-2022 Albumin [Mass/Vol] 3.2 g/dL Critically low 3.4-5.0 [place] Comment on above: Performed By: #### L IPA #### [facility] [address] [place] [address] Dr. Ayden Cam Albumin/Globulin [Mass ratio] 1.3 {ratio} Normal [facility] Comment on above: Performed By: #### L IPA #### [facility] [address] [place] [address] Dr. Ayden Cam ALP [Catalytic activity/Vol] 88 U/L Normal 46-116 [facility] Comment on above: Performed By: #### L IPA #### [facility] [address] [place] [address] Dr. Ayden Cam ALT [Catalytic activity/Vol] 66 U/L Critically high 14-59 [facility] Comment on above: Performed By: #### L IPA #### [facility] [address] [place] [address] Dr. Ayden Cam AST [Catalytic activity/Vol] 39 U/L Critically high 15-37 [facility] Comment on above: Performed By: #### L IPA #### [facility] [address] [place] [address] Dr. Ayden Cam BILI, CONJUGATED 0.1 mg/dL Normal 0.0-0.2 [facility] Comment on above: Performed By: #### L IPA #### [facility] [address] [place] [address] Dr. Ayden Cam Bilirubin [Mass/Vol] 0.4 mg/dL Normal 0.2-1.0 [facility] Comment on above: Performed By: #### L IPA #### [facility] [address] [place] [address] Dr. Ayden Cam Globulin (S) [Mass/Vol] 2.4 g/dL Normal [facility] Comment on above: Performed By: #### L IPA #### [facility] [address] [place] [address] Dr. Ayden Cam Protein [Mass/Vol] 5.6 g/dL Critically low 6.4-8.2 [facility] Comment on above: Performed By: #### L IPA #### [facility] [address] [place] [address] Dr. Ayden Cam PROF CHEM 8 (BAS METB)on Anion gap [Moles/Vol] 6.8 mmol/L Normal [facility] Comment on above: Performed By: #### L IPA #### [facility] [address] [place] [address] Dr. Ayden Cam Calcium [Mass/Vol] 8.6 mg/dL Normal 8.5-10.1 [facility] Comment on above: Performed By: #### L IPA #### [facility] [address] [place] [address] Dr. Ayden Cam Chloride [Moles/Vol] 102 mmol/L Normal 98-107 [facility] Comment on above: Performed By: #### L IPA #### [facility] [address] [place] [address] Dr. Ayden Cam CO2 [Moles/Vol] 32.6 mmol/L Critically high 21.0-32.0 [facility] Comment on above: Performed By: #### L IPA #### [facility] [address] [place] [address] Dr. Ayden Cam Creatinine [Mass/Vol] 0.61 mg/dL Normal 0.55-1.02 [facility] Comment on above: Performed By: #### L IPA #### [facility] [address] [address] [address] Ayden Cam EGFR-AF KOSOVAN >60 Normal >=60 [facility] Comment on above: Performed By: #### L IPA #### [facility] [address] [address] [address] Ayden Cam EGFR-NON AF KOSOVAN >60 Normal >=60 [facility] Comment on above: Performed By: #### L IPA #### [facility] [address] [address] [address] Ayden Cam Glucose [Mass/Vol] 91 mg/dL Normal 74-106 [facility] Comment on above: Performed By: #### L IPA #### [facility] [address] [address] [address] Ayden Cam Potassium [Moles/Vol] 3.4 mmol/L Critically low 3.5-5.1 [facility] Comment on above: Performed By: #### L IPA #### [facility] [address] [address] [address] Ayden Cam Sodium [Moles/Vol] 138 mmol/L Normal 136-145 [facility] Comment on above: Performed By: #### L IPA #### [facility] [address] [address] [address] Ayden Cam Urea nitrogen [Mass/Vol] 13.0 mg/dL Normal 7.0-18.0 [facility] Comment on above: Performed By: #### L IPA #### [facility] [address] [address] [address] Ayden Cam Urea nitrogen/Creatinine [Mass ratio] 21.3 mg/mg Normal [facility] Comment on above: Performed By: #### L IPA #### [facility] [address] [address] [address] Ayden Cam AMMONIAon 10-05-2022 Ammonia (P) [Moles/Vol] 10 umol/L Critically low 11-32 [facility] Comment on above: Performed By: #### A MM #### [facility] [address] [place] [address] Dr. Ayden Cam AMYLASEon 10-05-2022 Amylase [Catalytic activity/Vol] 109 U/L Normal 25-115 [facility] Comment on above: Performed By: #### A MY #### [facility] [address] [place] [address] Dr. Ayden Cam CBC AUTO DIFFon 10-05-2022 BASO # 0.0 103/ul Normal 0.0-0.1 [facility] Comment on above: Performed By: #### L IPA #### [facility] [address] [place] [address] Dr. Ayden Cam Basophils/100 WBC (Bld) 0.3 % Normal 0.2-2.0 [facility] Comment on above: Performed By: #### L IPA #### [facility] [address] [place] [address] Dr. Ayden Cam EO # 0.3 103/ul Normal 0.0-0.7 [facility] Comment on above: Performed By: #### L IPA #### [facility] [address] [place] [address] Dr. Ayden Cam Eosinophils/100 WBC (Bld) 4.3 % Normal 0.9-7.0 [facility] Comment on above: Performed By: #### L IPA #### [facility] [address] [place] [address] Dr. Ayden Cam Erythrocyte distribution width (RBC) [Ratio] 12.2 % Normal 11.0-15.0 [facility] Comment on above: Performed By: #### L IPA #### [facility] [address] [place] [address] Dr. Ayden Cam Hematocrit (Bld) [Volume fraction] 38.9 % Normal 36.0-48.0 [facility] Comment on above: Performed By: #### L IPA #### [facility] [address] [place] [address] Dr. Ayden Cam Hemoglobin (Bld) [Mass/Vol] 12.8 g/dL Normal 12.0-16.0 [facility] Comment on above: Performed By: #### L IPA #### [facility] [address] [place] [address] Dr. Ayden Cam IG # 0.01 10e3/ul Normal 0.00-0.03 [facility] Comment on above: Performed By: #### L IPA #### [facility] [address] [place] [address] Dr. Ayden Cam IG % 0.2 % Normal 0.0-0.5 [facility] Comment on above: Performed By: #### L IPA #### [facility] [address] [place] [address] Dr. Ayden Cam LYMPH # 1.9 103/ul Normal 1.2-3.8 [facility] Comment on above: Performed By: #### L IPA #### [facility] [address] [place] [address] Dr. Ayden Cam Lymphocytes/100 WBC (Bld) 31.4 % Normal 20.5-60.0 [facility] Comment on above: Performed By: #### L IPA #### [facility] [address] [place] [address] Dr. Ayden Cam MANUAL DIFF REQ NO Normal [facility] Comment on above: Performed By: #### L IPA #### [facility] [address] [place] [address] Dr. Ayden Cam MCH (RBC) [Entitic mass] 29.6 pg Normal 26.7-34.0 [facility] Comment on above: Performed By: #### L IPA #### [facility] [address] [place] [address] Dr. Ayden Cam MCHC (RBC) [Mass/Vol] 32.9 g/dL Normal 29.9-35.2 [facility] Comment on above: Performed By: #### L IPA #### [facility] [address] [place] [address] Dr. Ayden Cam MCV (RBC) [Entitic vol] 89.8 fL Normal 81.0-99.0 [facility] Comment on above: Performed By: #### L IPA #### [facility] [address] [address] [address] Ayden Cam MONO # 0.6 103/ul Normal 0.3-0.8 [facility] Comment on above: Performed By: #### L IPA #### [facility] [address] [address] [address] Ayden Cam Monocytes/100 WBC (Bld) 10.1 % Normal 1.7-12.0 [facility] Comment on above: Performed By: #### L IPA #### [facility] [address] [address] [address] Ayden Cam NEUT # 3.2 103/ul Normal 1.4-6.5 [facility] Comment on above: Performed By: #### L IPA #### [facility] [address] [place] [address] Dr. Ayden Cam Neutrophils/100 WBC (Bld) 53.7 % Normal 43.0-75.0 [facility] Comment on above: Performed By: #### L IPA #### [facility] [address] [address] [address] Ayden Cam Platelet mean volume (Bld) [Entitic vol] 9.7 fL Normal 9.5-13.5 [facility] Comment on above: Performed By: #### L IPA #### [facility] [address] [address] [address] Ayden Cam PLT 168 103/ul Normal 150-450 [facility] Comment on above: Performed By: #### L IPA #### [facility] [address] [address] [address] Ayden Cam RBC 4.33 106/ul Normal 4.20-5.40 [facility] Comment on above: Performed By: #### L IPA #### [facility] [address] [address] [address] Ayden Cam WBC 6.0 103/ul Normal 4.0-11.0 [facility] Comment on above: Performed By: #### L IPA #### [facility] [address] [place] [address] Dr. Ayden Cam LIPASEon 10-05-2022 Lipase [Catalytic activity/Vol] 151.0 U/L Normal 73.0-393.0 [facility] Comment on above: Performed By: #### L IPA #### [facility] [address] [place] [address] Dr. Ayden Cam LIVER PROFILEon 10-05-2022 Albumin [Mass/Vol] 3.2 g/dL Critically low 3.4-5.0 [facility] Comment on above: Performed By: #### L ACT #### [facility] [address] [place] [address] Dr. Ayden Cam Albumin/Globulin [Mass ratio] 1.1 {ratio} Normal [facility] Comment on above: Performed By: #### L ACT #### [facility] [address] [place] [address] Dr. Ayden Cam ALP [Catalytic activity/Vol] 82 U/L Normal 46-116 [facility] Comment on above: Performed By: #### L ACT #### [facility] [address] [place] [address] Dr. Ayden Cam ALT [Catalytic activity/Vol] 70 U/L Critically high 14-59 [facility] Comment on above: Performed By: #### L ACT #### [facility] [address] [place] [address] Dr. Ayden Cam AST [Catalytic activity/Vol] 36 U/L Normal 15-37 [facility] Comment on above: Performed By: #### L ACT #### [facility] [address] [place] [address] Dr. Ayden Cam BILI, CONJUGATED 0.1 mg/dL Normal 0.0-0.2 [facility] Comment on above: Performed By: #### L ACT #### [facility] [address] [place] [address] Dr. Ayden Cam Bilirubin [Mass/Vol] 0.3 mg/dL Normal 0.2-1.0 [facility] Comment on above: Performed By: #### L ACT #### [facility] [address] [address] [address] Ayden Cam Globulin (S) [Mass/Vol] 3.0 g/dL Normal [facility] Comment on above: Performed By: #### L ACT #### [facility] [address] [address] [address] Ayden Cam Protein [Mass/Vol] 6.2 g/dL Critically low 6.4-8.2 [facility] Comment on above: Performed By: #### L ACT #### [facility] [address] [address] [address] Ayden Cam PROF CHEM 8 (BAS METB)on Anion gap [Moles/Vol] 9.5 mmol/L Normal [facility] Comment on above: Performed By: #### B MP #### [facility] [address] [place] [address] Dr. Ayden Cam Calcium [Mass/Vol] 8.9 mg/dL Normal 8.5-10.1 [facility] Comment on above: Performed By: #### B MP #### [facility] [address] [place] [address] Dr. Ayden Cam Chloride [Moles/Vol] 105 mmol/L Normal 98-107 [facility] Comment on above: Performed By: #### B MP #### [facility] [address] [place] [address] Dr. Ayden Cam CO2 [Moles/Vol] 29.6 mmol/L Normal 21.0-32.0 [facility] Comment on above: Performed By: #### B MP #### [facility] [address] [place] [address] Dr. Ayden Cam Creatinine [Mass/Vol] 0.56 mg/dL Normal 0.55-1.02 [facility] Comment on above: Performed By: #### B MP #### [facility] [address] [place] [address] Dr. Ayden Cam EGFR-AF KOSOVAN >60 Normal >=60 [facility] Comment on above: Performed By: #### B MP #### [facility] [address] [address] [address] Ayden Cam EGFR-NON AF KOSOVAN >60 Normal >=60 [facility] Comment on above: Performed By: #### B MP #### [facility] [address] [address] [address] Ayden Cam Glucose [Mass/Vol] 88 mg/dL Normal 74-106 [facility] Comment on above: Performed By: #### B MP #### [facility] [address] [address] [address] Ayden Cam Potassium [Moles/Vol] 4.1 mmol/L Normal 3.5-5.1 [facility] Comment on above: Performed By: #### B MP #### [facility] [address] [address] [address] Ayden Cam Sodium [Moles/Vol] 140 mmol/L Normal 136-145 [facility] Comment on above: Performed By: #### B MP #### [facility] [address] [place] [address] Dr. Ayden Cam Urea nitrogen [Mass/Vol] 15.0 mg/dL Normal 7.0-18.0 [facility] Comment on above: Performed By: #### B MP #### [facility] [address] [place] [address] Dr. Ayden Cam Urea nitrogen/Creatinine [Mass ratio] 26.8 mg/mg Normal [facility] Comment on above: Performed By: #### B MP #### [facility] [address] [place] [address] Dr. Ayden Cam US Jhony 10-05-2022 US [...] RONAN TORIBIO Date: 2022-10-05 09:52 Normal [facility] XR KUB 1 VIEWon 10-05-2022 XR [...] RONAN TORIBIO Date: 2022-10-05 09:55 Normal [facility] AMYLASEon 10-04-2022 Amylase [Catalytic activity/Vol] 124 U/L Critically high 25-115 [facility] Comment on above: Performed By: #### L IPA, COLE, CMP #### [facility] [address] [place] [address] Dr. Ayden Cam CBC AUTO DIFFon 10-04-2022 BASO # 0.0 103/ul Normal 0.0-0.1 [facility] Comment on above: Performed By: #### L IPA #### [facility] [address] [address] [address] Ayden Cam Basophils/100 WBC (Bld) 0.3 % Normal 0.2-2.0 [facility] Comment on above: Performed By: #### L IPA #### [facility] [address] [place] [address] Dr. Ayden Cam EO # 0.2 103/ul Normal 0.0-0.7 [facility] Comment on above: Performed By: #### L IPA #### [facility] [address] [place] [address] Dr. Ayden Cam Eosinophils/100 WBC (Bld) 2.9 % Normal 0.9-7.0 [facility] Comment on above: Performed By: #### L IPA #### [facility] [address] [place] [address] Dr. Ayden Cam Erythrocyte distribution width (RBC) [Ratio] 12.3 % Normal 11.0-15.0 [facility] Comment on above: Performed By: #### L IPA #### [facility] [address] [place] [address] Dr. Ayden Cam Hematocrit (Bld) [Volume fraction] 42.0 % Normal 36.0-48.0 [facility] Comment on above: Performed By: #### L IPA #### [facility] [address] [place] [address] Dr. Ayden Cam Hemoglobin (Bld) [Mass/Vol] 14.3 g/dL Normal 12.0-16.0 [facility] Comment on above: Performed By: #### L IPA #### [facility] [address] [place] [address] Dr. Ayden Cam IG # 0.02 10e3/ul Normal 0.00-0.03 [facility] Comment on above: Performed By: #### L IPA #### [facility] [address] [place] [address] Dr. Ayden Cam IG % 0.3 % Normal 0.0-0.5 [facility] Comment on above: Performed By: #### L IPA #### [facility] [address] [place] [address] Dr. Ayden Cam LYMPH # 1.7 103/ul Normal 1.2-3.8 [facility] Comment on above: Performed By: #### L IPA #### [facility] [address] [place] [address] Dr. Ayden Cam Lymphocytes/100 WBC (Bld) 22.5 % Normal 20.5-60.0 [facility] Comment on above: Performed By: #### L IPA #### [facility] [address] [place] [address] Dr. Ayden Cam MANUAL DIFF REQ NO Normal [facility] Comment on above: Performed By: #### L IPA #### [facility] [address] [place] [address] Dr. Ayden Cam MCH (RBC) [Entitic mass] 30.1 pg Normal 26.7-34.0 [facility] Comment on above: Performed By: #### L IPA #### [facility] [address] [place] [address] Dr. Ayden Cam MCHC (RBC) [Mass/Vol] 34.0 g/dL Normal 29.9-35.2 [facility] Comment on above: Performed By: #### L IPA #### [facility] [address] [place] [address] Dr. Ayden Cam MCV (RBC) [Entitic vol] 88.4 fL Normal 81.0-99.0 [facility] Comment on above: Performed By: #### L IPA #### [facility] [address] [place] [address] Dr. Ayden Cam MONO # 0.5 103/ul Normal 0.3-0.8 [facility] Comment on above: Performed By: #### L IPA #### [facility] [address] [place] [address] Dr. Ayden Cam Monocytes/100 WBC (Bld) 6.0 % Normal 1.7-12.0 [facility] Comment on above: Performed By: #### L IPA #### [facility] [address] [place] [address] Dr. Ayden Cam NEUT # 5.2 103/ul Normal 1.4-6.5 [facility] Comment on above: Performed By: #### L IPA #### [facility] [address] [place] [address] Dr. Ayden Cam Neutrophils/100 WBC (Bld) 68.0 % Normal 43.0-75.0 [facility] Comment on above: Performed By: #### L IPA #### [facility] [address] [address] Dr. Ayden Cam Platelet mean volume (Bld) [Entitic vol] 9.6 fL Normal 9.5-13.5 [facility] Comment on above: Performed By: #### L IPA #### [facility] [address] [place] [address] Dr. Ayden Cam PLT 183 103/ul Normal 150-450 [facility] Comment on above: Performed By: #### L IPA #### [facility] [address] [place] [address] Dr. Ayden Cam RBC 4.75 106/ul Normal 4.20-5.40 [facility] Comment on above: Performed By: #### L IPA #### [facility] [address] [place] [address] Dr. Ayden Cam WBC 7.6 103/ul Normal 4.0-11.0 [facility] Comment on above: Performed By: #### L IPA #### [facility] [address] [place] [address] Dr. Ayden Cam [facility]on SARS-CoV-2 (COVID-19) RNA LOWELL+probe Ql (Unsp spec) Not detected Normal NOT DETECTED [facility] Comment on above: Result Comment: When [...] for this test is supported by the City Editor of Health and Human Service's declaration that [...] used). Performed By: #### L IPA #### [facility] [address] [place] [address] Dr. Ayden Cam ER URINE PROFILEon 3 Bilirubin Ql (U) Negative Normal NEGATIVE [facility] Comment on above: Performed By: #### L ACT #### [facility] [address] [place] [address] Dr. Ayden Cam Clarity (U) CLEAR Normal CLEAR [facility] Comment on above: Performed By: #### L ACT #### [facility] [address] [place] [address] Dr. Ayden Cam Color (U) LT. YELLOW Normal YELLOW [facility] Comment on above: Performed By: #### L ACT #### [facility] [address] [place] [address] Dr. Ayden Cam ERUAHD A micrscopic examina tion will be performed if indicated. Normal [facility] Comment on above: Performed By: #### L ACT #### [facility] [address] [place] [address] Dr. Ayden Cam Glucose Ql (U) Negative Normal NEGATIVE [facility] Comment on above: Performed By: #### L ACT #### [facility] [address] [place] [address] Dr. Ayden Cam Hemoglobin Ql (U) Negative Normal NEGATIVE [facility] Comment on above: Performed By: #### L ACT #### [facility] [address] [place] [address] Dr. Ayden Cam Ketones Ql (U) Negative Normal NEGATIVE [facility] Comment on above: Performed By: #### L ACT #### [facility] [address] [place] [address] Dr. Ayden Cam LEUKOCYTES Negative Normal NEGATIVE [facility] Comment on above: Performed By: #### L ACT #### [facility] [address] [place] [address] Dr. Ayden Cam Nitrite Ql (U) Negative Normal NEGATIVE [facility] Comment on above: Performed By: #### L ACT #### [facility] [address] [place] [address] Dr. Ayden Cam pH (U) 8.5 [pH] Normal 5-9 [facility] Comment on above: Performed By: #### L ACT #### [facility] [address] [place] [address] Dr. Ayden Cam SPEC GRAVITY 1.015 Normal 1.005-<=1.02 5 [facility] Comment on above: Performed By: #### L ACT #### [facility] [address] [place] [address] Dr. Ayden Cam UA PROTEIN Negative Normal NEGATIVE/ TRACE [facility] Comment on above: Performed By: #### L ACT #### [facility] [address] [place] [address] Dr. Ayden Cam UR MICRO IND NOT INDICATED Normal [facility] Comment on above: Performed By: #### L ACT #### [facility] [address] [place] [address] Dr. Ayden Cam Urobilinogen Qn (U) 0.2 {Peggy'U}/dL Normal 0.2 - 1. 0 [facility] Comment on above: Performed By: #### L ACT #### [facility] [address] [place] [address] Dr. Ayden Cam LACTATE/LACTIC ACIDon 2022 Lactate [Moles/Vol] 0.8 mmol/L Normal 0.4-1.9 [facility] Comment on above: Performed By: #### L ACT #### [facility] [address] [place] [address] Dr. Ayden Cam LIPASEon 10-04-2022 Lipase [Catalytic activity/Vol] 170.0 U/L Normal 73.0-393.0 [facility] Comment on above: Performed By: #### L ACT #### [facility] [address] [place] [address] Dr. Ayden Cam PROF 14(COMP METB)on 023 Albumin [Mass/Vol] 3.8 g/dL Normal 3.4-5.0 [facility] Comment on above: Performed By: #### L ACT #### [facility] [address] [address] [address] Ayden Cam Albumin/Globulin [Mass ratio] 1.1 {ratio} Normal [facility] Comment on above: Performed By: #### L ACT #### [facility] [address] [address] [address] Ayden Cam ALP [Catalytic activity/Vol] 101 U/L Normal 46-116 [facility] Comment on above: Performed By: #### L ACT #### [facility] [address] [address] [address] Ayden Cam ALT [Catalytic activity/Vol] 94 U/L Critically high 14-59 [facility] Comment on above: Performed By: #### L ACT #### [facility] [address] [place] [address] Dr. Ayden Cam Anion gap [Moles/Vol] 11.1 mmol/L Normal [place] Comment on above: Performed By: #### L ACT #### [facility] [address] [place] [address] Dr. Ayden Cam AST [Catalytic activity/Vol] 59 U/L Critically high 15-37 [facility] Comment on above: Performed By: #### L ACT #### [facility] [address] [place] [address] Dr. Ayden Cam Bilirubin [Mass/Vol] 0.3 mg/dL Normal 0.2-1.0 [facility] Comment on above: Performed By: #### L ACT #### [facility] [address] [address] [address] Ayden Cam Calcium [Mass/Vol] 9.5 mg/dL Normal 8.5-10.1 [facility] Comment on above: Performed By: #### L ACT #### [facility] [address] [place] [address] Dr. Ayden Cam Chloride [Moles/Vol] 99 mmol/L Normal 98-107 [facility] Comment on above: Performed By: #### L ACT #### [facility] [address] [place] [address] Dr. Ayden Cam CO2 [Moles/Vol] 29.7 mmol/L Normal 21.0-32.0 [facility] Comment on above: Performed By: #### L ACT #### [facility] [address] [address] [address] Ayden Cam Creatinine [Mass/Vol] 0.61 mg/dL Normal 0.55-1.02 [facility] Comment on above: Performed By: #### L ACT #### [facility] [address] [address] [address] Ayden Cam EGFR-AF KOSOVAN >60 Normal >=60 [facility] Comment on above: Performed By: #### L ACT #### [facility] [address] [place] [address] Dr. Ayden Cam EGFR-NON AF KOSOVAN >60 Normal >=60 [facility] Comment on above: Performed By: #### L ACT #### [facility] [address] [address] [address] Ayden Cam Globulin (S) [Mass/Vol] 3.4 g/dL Normal [facility] Comment on above: Performed By: #### L ACT #### [facility] [address] [address] [address] Ayden Cam Glucose [Mass/Vol] 111 mg/dL Critically high 74-106 T [facility] Comment on above: Performed By: #### L ACT #### [facility] [address] [address] [address] Ayden Cam Potassium [Moles/Vol] 3.8 mmol/L Normal 3.5-5.1 [facility] Comment on above: Performed By: #### L ACT #### [facility] [address] [address] [address] Ayden Cam Protein [Mass/Vol] 7.2 g/dL Normal 6.4-8.2 [facility] Comment on above: Performed By: #### L ACT #### [facility] [address] [address] [address] Ayden Cam Sodium [Moles/Vol] 136 mmol/L Normal 136-145 [facility] Comment on above: Performed By: #### L ACT #### [facility] [address] [address] [address] Ayden Cam Urea nitrogen [Mass/Vol] 23.0 mg/dL Critically high 7.0-18.0 [facility] Comment on above: Performed By: #### L ACT #### [facility] [address] [address] [address] Ayden Cam Urea nitrogen/Creatinine [Mass ratio] 37.7 mg/mg Normal [facility] Comment on above: Performed By: #### L ACT #### [facility] [address] [address] [address] Ayden Cam TROPONIN, HIGH SENSITIVITYon 10-04-2022 HSTROP 8.9 pg/mL Normal 4.0-51.3 [facility] Comment on above: Result Comment: CUT- OFF POINTS HAVE BEEN ESTABLISHED BASED ON THE FOURTH UNIVERSAL DEFINITIONS OF MYOCARDIAL INFARCTION. THE UPPER REFERENCE LIMIT (URL) OF TROPONIN, DEFINED THE 99TH PERCENTILE OF cTnI DISTRIBUTION IN A REFERENCE POPULATION, HAS BEEN CONFIRMED THE DECISION THRESHOLD FOR ND DIAGNOSIS. Performed By: #### L ACT #### [facility] [address] [place] [address] Dr. Ayden Cam LIPID PROFILEon 09-19-2022 CHOL-HDL RATIO NORM SEE BELOW Normal [facility] Comment on above: Result Comment: 3.3 - 4.4 LOW RISK 4.4 - 7.1 AVERAGE RISK 7.1 - 11.0 MODERATE RISK >11.0 HIGH RISK Performed By: #### L IPA #### [facility] [address] [place] [address] Dr. Ayden Cam Cholesterol [Mass/Vol] 116 mg/dL Normal <=200 [facility] Comment on above: Performed By: #### L IPA #### [facility] [address] [address] [address] Ayden Cam Cholesterol in HDL [Mass/Vol] 59 mg/dL Normal 40-60 [facility] Comment on above: Performed By: #### L IPA #### [facility] [address] [address] [address] Ayden Cam Cholesterol in LDL [Mass/Vol] 34.0 mg/dL Normal [facility] Comment on above: Performed By: #### L IPA #### [facility] [address] [address] [address] Ayden Cam Cholesterol.total/Cho lesterol in HDL [Mass ratio] 2.0 {ratio} Normal [facility] Comment on above: Performed By: #### L IPA #### [facility] [address] [address] [address] Ayden Cam HDL NORMAL > or = 60 mg/dl - LO W CARDIOVASCULAR RISK <40 mg/dl - HIGH CARDIOVASCULAR RISK Normal [facility] Comment on above: Performed By: #### L IPA #### [facility] [address] [place] [address] Dr. Ayden Cam LDL CALC NORMAL SEE BELOW Normal [facility] Comment on above: Result Comment: <100 mg/dl OPTIMAL 100 - 129 mg/dl NEAR OR ABOVE OPTIMAL 130 - 159 mg/dl BORDERLINE HIGH 160 - 189 mg/dl HIGH >190 mg/dl VERY HIGH Performed By: #### L IPA #### [facility] [address] [place] [address] Dr. Ayden Cam Triglyceride [Mass/Vol] 115 mg/dL Normal <=150 [facility] Comment on above: Performed By: #### L IPA #### [facility] [address] [place] [address] Dr. Ayden Cam VLDL CALC 23.0 mg/dL Normal [facility] Comment on above: Performed By: #### L IPA #### [facility] [address] [place] [address] Dr. Ayden Cam VITAMIN D 25 OHon 09-19-2022 VIT D 25-OH 89.3 ng/mL Normal [facility] Comment on above: Performed By: #### V ITAD #### [facility] [address] [place] [address] Dr. Ayden Cam VIT D RANGES SEE BELOW Normal [facility] Comment on above: Result Comment: <20 ng/mL Vit D deficient 20 - <30 ng/mL Vit D insufficient 30 - 100 ng/mL Vit D sufficient >100 ng/mL Potential Toxicity Performed By: #### V ITAD #### [facility] [address] [address] [address] Ayden Cam Office Visit (Cardiology)on 08-15-2022 Follow-up visit Diagnoses/Problems Assessed Atherosclerosis of coronary artery of [place] heart without angina pectoris (414.01) (I25.10) History of coronary artery bypass graft (V45.81) (Z95.1) Ischemic cardiomyopathy (414.8) (I25.5) Hyperlipidemia (272.4) (E78.5) Essential hypertension, benign (401.1) (I10) Never a smoker Overweight with body mass index (BMI) of 26 to 26.9 in adult (278.02,V85.22) (E66.3,Z68.26) Paroxysmal SVT (supraventricular tachycardia) (427.0) (I47.1) Orders Atherosclerosis of coronary artery of [place] heart without angina pectoris, Essential hypertension, benign, Hyperlipidemia Basic Metabolic Panel; Status:Active - Retrospective Authorization; Requested for:[id number]; Lipid Panel; Status:Active - Retrospective Authorization; Requested for:[id number]; Overweight with body mass index (BMI) of 26 to 26.9 in adult Healthy Weight Tips; Status:Complete - Retrospective Authorization; Done: [id number] Some eating tips that can help you lose weight.; Status:Complete - Retrospective Authorization; Done: [id number] SocHx: Never a smoker Tobacco Use Screening; Status:Complete; Done: [id number] Patient Instructions Please bring all medicines, vitamins, [...] She has a history of prior inferior ND, prior PCI with subsequent three-vessel CABG and [...] CHEST PAIN.CALL 911 IF PAIN PERSISTS. Nyamyc [id number] UNIT/GM External Powderapply topically to affected area [...] Tobacco Screening.on Adult depression screening assessment No [facility] [employer] [facility] DO Work Phone: Fall risk assessment a) No falls within the last year [facility] [employer] DO Work Phone: Tobacco use status [facility]PH[facility] b) No [facility] [employer] DO Work Phone: MRI Ankle [...] by Wilder Arango on 08/01/2022 1102 Normal [facility] [employer] Worker Tobacco Screening.on 021 Tobacco use status CPHS b) No -[facility] [facility] [employer] DO Work Phone: Vital Signs Date Time Vital Sign Value Performing Clinician Facility 09-05-2024 09:53-0500 Body height 160 cm Celso Garibay DO Work Phone: [facility] 09-05-2024 09:53-0500 Body mass index (BMI) [Ratio] 30.11 kg/m2 Celso Garibay DO Work Phone: [facility] 09-05-2024 09:53-0500 Body weight 77.11 kg Celso Garibay DO Work Phone: [facility] 09-05-2024 09:53-0500 Diastolic blood pressure 80 mm[Hg] Celso Garibay DO Work Phone: [facility] 09-05-2024 09:53-0500 Heart rate 66 /min Celso Garibay DO Work Phone: [facility] 09-05-2024 09:53-0500 Systolic blood pressure 118 mm[Hg] Celso Phoenix DO Work Phone: [facility] 08-19-2024 01:03-0500 Diastolic blood pressure 69 mm[Hg] Ashley Grigsby MD Work Phone: [facility] 08-19-2024 01:03-0500 Heart rate 60 /min Ashley Grigsby MD Work Phone: [facility] 08-19-2024 01:03-0500 Respiratory rate 20 /min Ashley Grigsby MD Work Phone: [facility] 08-19-2024 01:03-0500 SaO2% (BldA) [Mass fraction] 96 % Ashley Grigsby MD Work Phone: [facility] 08-19-2024 01:03-0500 Systolic blood pressure 130 mm[Hg] Ashley Grigsby MD Work Phone: [facility] 08-18-2024 20:55-0500 Body height 160.02 cm Ashley Grigsby MD Work Phone: [facility] 08-18-2024 20:55-0500 Body temperature 97.4 [degF] Ashley Grigsby MD Work Phone: [facility] 08-18-2024 20:55-0500 Body weight 78.5 kg Ashley Grigsby MD Work Phone: [facility] 08-13-2024 12:21-0500 Body height 160 cm Celso Garibay DO Work Phone: [facility] 08-13-2024 12:21-0500 Body mass index (BMI) [Ratio] 30.47 kg/m2 Celso Garibay DO Work Phone: [facility] 08-13-2024 12:21-0500 Body weight 78.02 kg Celso Garibay DO Work Phone: [facility] 08-13-2024 12:21-0500 Diastolic blood pressure 94 mm[Hg] Celso Garibay DO Work Phone: [facility] 08-13-2024 12:21-0500 Heart rate 76 /min Celso Garibay DO Work Phone: [facility] 08-13-2024 12:21-0500 Systolic blood pressure 138 mm[Hg] Celso Garibay DO Work Phone: [facility] 08-05-2024 11:08-0500 Blood Pressure Location JENNIFER MARTINO [facility] 08-05-2024 11:08-0500 Body temperature 98.6 [degF] [place] [facility] 08-05-2024 11:08-0500 Diastolic blood pressure 80 mm[Hg] [place] [facility] 08-05-2024 11:08-0500 Heart rate 68 /min [place] [facility] 08-05-2024 11:08-0500 Respiratory rate 16 /min [place] [facility] 08-05-2024 11:08-0500 Systolic blood pressure 131 mm[Hg] [place] [facility] 04-10-2024 15:08-0400 Blood Pressure Location [place] [facility] 04-10-2024 15:08-0400 Diastolic blood pressure 80 mm[Hg] [place] [facility] 04-10-2024 15:08-0400 Heart rate 75 /min [place] [facility] 04-10-2024 15:08-0400 Respiratory rate 16 /min [place] [facility] 04-10-2024 15:08-0400 Systolic blood pressure 131 mm[Hg] [place] [facility] 08-14-2023 15:29-0500 Body height 161.3 cm Celso Garibay DO Work Phone: [facility] 08-14-2023 15:29-0500 Body mass index (BMI) [Ratio] 28.07 kg/m2 Celso Garibay DO Work Phone: [facility] 08-14-2023 15:29-0500 Body weight 73.03 kg Celso Garibay DO Work Phone: [facility] 08-14-2023 15:29-0500 Diastolic blood pressure 80 mm[Hg] Celso Garibay DO Work Phone: [facility] 08-14-2023 15:29-0500 Heart rate 56 /min Celso Garibay DO Work Phone: [facility] 08-14-2023 15:29-0500 Systolic blood pressure 138 mm[Hg] Celso Garibay DO Work Phone: [facility] 06-18-2023 15:15-0400 Diastolic blood pressure 78 mm[Hg] Gaby Tello DO Work Phone: [employer] 06-18-2023 15:15-0400 Heart rate 70 /min Gaby Tello DO Work Phone: [employer] 06-18-2023 15:15-0400 Respiratory rate 18 /min Gaby Novoag DO Work Phone: [employer] 06-18-2023 15:15-0400 SaO2% (BldA) [Mass fraction] 96 % Gaby Novoag DO Work Phone: [employer] 06-18-2023 15:15-0400 Systolic blood pressure 173 mm[Hg] Gaby Novoag DO Work Phone: [employer] 06-18-2023 14:36-0400 Body temperature 97 [degF] Gaby Novoag DO Work Phone: [employer] 06-18-2023 13:30-0400 Body height 160 cm Gaby Tello DO Work Phone: [facility] 06-18-2023 13:30-0400 Body mass index (BMI) [Ratio] 27.03 kg/m2 Gaby Tello DO [facility] Phone: [facility] 06-18-2023 13:30-0400 Body weight 69.22 kg Gaby Tello DO Work Phone: [facility] 11-02-2022 15:02-0500 Diastolic blood pressure 84 mm[Hg] MD Ashley Grigsby Work Phone: [facility] 11-02-2022 15:02-0500 Heart rate 78 /min MD Ashley Grigsby Work Phone: [facility] 11-02-2022 15:02-0500 Respiratory rate 18 /min MD Ashley Grigsby Work Phone: [facility] 11-02-2022 15:02-0500 SaO2% (BldA) [Mass fraction] 100 % MD Ashley Grigsby Work Phone: [facility] 11-02-2022 15:02-0500 Systolic blood pressure 161 mm[Hg] MD Ashley Grigsby Work Phone: [facility] 11-02-2022 13:20-0500 Body height 160.02 cm MD Ashley Grigsby Work Phone: [facility] 11-02-2022 13:20-0500 Body temperature 98.2 [degF] MD Ashley Grigsby Work Phone: [facility] 11-02-2022 13:20-0500 Body weight 60.78 kg MD Ashley Grigsby Work Phone: [facility] 11-01-2022 13:26-0500 Diastolic blood pressure 61 mm[Hg] MD Ashley Grigsby Work Phone: [facility] 11-01-2022 13:26-0500 Heart rate 59 /min MD Ashley Grigsby Work Phone: [facility] 11-01-2022 13:26-0500 Respiratory rate 20 /min MD Ashley Grigsby Work Phone: [facility] 11-01-2022 13:26-0500 SaO2% (BldA) [Mass fraction] 99 % MD Ashley Grigsby Work Phone: [facility] 11-01-2022 13:26-0500 Systolic blood pressure 124 mm[Hg] MD Ashley Grigsby Work Phone: [facility] 11-01-2022 10:53-0500 Body height 160.02 cm MD Ashley Grigsby Work Phone: [facility] 11-01-2022 10:53-0500 Body temperature 97.7 [degF] MD Ashley Grigsby Work Phone: [facility] 11-01-2022 10:53-0500 Body weight 61.68 kg MD Ashley Grigsby Work Phone: [facility] 10-24-2022 15:45-0500 Body height 159.38 cm Imad Asaad Other [employer] Other 10-24-2022 15:45-0500 Body mass index (BMI) [Ratio] 24.28 kg/m2 Imad Asaad Other [employer] Other 10-24-2022 15:45-0500 Body weight 61.69 kg Imad Asaad Other [employer] Other 10-24-2022 15:45-0500 Diastolic blood pressure 94 mm[Hg] Imad Asaad Other [employer] Other 10-24-2022 15:45-0500 Systolic blood pressure 133 mm[Hg] Imad Asaad Other [employer] Other 09-19-2022 00:00-0500 34 1 Ashley M Hoy Work Phone: [facility] 250 DO Work Phone: Comment on above: [employer] 08-15-2022 15:23-0500 Body height 160.02 cm Ashley M Hoy Work Phone: [facility] [facility] DO Work Phone: 08-15-2022 15:23-0500 Body mass index (BMI) [Ratio] 26.22 kg/m2 Ashley M Hoy Work Phone: [facility] [facility] DO Work Phone: 08-15-2022 15:23-0500 Body surface area Derived from formula 1.7 m2 Ashley M Hoy Work Phone: [facility] DO Work Phone: 08-15-2022 15:23-0500 Body weight 67.13 kg Ashley M Hoy Work Phone: [facility] [address] DO Work Phone: 08-15-2022 15:23-0500 Diastolic blood pressure 82 mm[Hg] Ashley M Hoy Work Phone: [facility] DO Work Phone: 08-15-2022 15:23-0500 Heart rate 80 /min Ashley M Hoy Work Phone: [facility] [facility] DO Work Phone: 08-15-2022 15:23-0500 Systolic blood pressure 132 mm[Hg] Ashley M Hoy Work Phone: [facility] [facility] DO Work Phone: 06-02-2022 08:12-0400 Blood Pressure Location Santiago CARRILLO [facility] [place] [address]-02-2022 08:12-0400 Diastolic blood pressure 86 mm[Hg] Santiago CARRILLO [facility] 06-02-2022 08:12-0400 Heart rate 60 /min Santiago CARRILLO [facility] 06-02-2022 08:12-0400 Respiratory rate 16 /min Santiago CARRILLO [facility] 06-02-2022 08:12-0400 Systolic blood pressure 144 mm[Hg] Santiago CARRILLO [facility] 08-17-2021 09:47-0500 Body height 160.02 cm Ashley M Hoy Work Phone: [facility] DO Work Phone: 08-17-2021 09:47-0500 Body mass index (BMI) [Ratio] 25.01 kg/m2 Ashley M Hoy Work Phone: [facility] DO Work Phone: 08-17-2021 09:47-0500 Body surface area Derived from formula 1.67 m2 Ashley M Hoy Work Phone: [facility] DO Work Phone: 08-17-2021 09:47-0500 Body weight 64.05 kg Ashley M Hoy Work Phone: [facility] [facility] DO Work Phone: 08-17-2021 09:47-0500 Diastolic blood pressure 86 mm[Hg] Ashley M Hoy Work Phone: [facility] [facility] DO Work Phone: 08-17-2021 09:47-0500 Heart rate 72 /min Ashley M Hoy Work Phone: [facility] [facility] DO Work Phone: 08-17-2021 09:47-0500 Systolic blood pressure 134 mm[Hg] Ashley Tyree Seb Work Phone: [facility] 250 DO Work Phone: Encounters Encounter Date Encounter Type Care Provider Facility Start: 09-05-2024 End: 09-05-2024 ambulatory [facility] Start: 09-05-2024 End: 09-05-2024 Transitional care manage srvc 14 day discharge [facility] DO Work Phone: [facility] Comment on above: Atherosclerosis of c oronary artery bypass graft of [place] heart without angina pectoris; S/P PTCA (percutaneous transluminal coronary angioplasty); History of coronary artery bypass graft; Ischemic cardiomyopathy; Essential hypertension; Mixed hyperlipidemia; BMI 30.0-30.9,adult; Statin intolerance Start: 08-20-2024 End: 08-22-2024 Evaluation and management of inpatient Donis Arroyo Facility:[facility] Start: 08-18-2024 Evaluation and management of inpatient Ashley Grigsby MD Work Phone: [facility] [place] [facility] Work Phone: Start: 08-18-2024 observation encounter Ashley Grigsby MD Work Phone: [facility] Work Phone: Start: 08-13-2024 End: 08-13-2024 ambulatory [facility] Start: 08-13-2024 End: 08-13-2024 Office outpatient visit [address] [facility] Work [facility]: [facility] Comment on above: Atherosclerosis of c oronary artery of [place] heart without angina pectoris, unspecified vessel or lesion type; History of coronary artery bypass graft; Essential hypertension, benign; Hyperlipidemia, unspecified hyperlipidemia type; Acute pancreatitis, unspecified complication status, unspecified pancreatitis type ([facility]) Start: 08-05-2024 End: 08-05-2024 ambulatory BARRY MARTINO Facility:[facility] Start: 08-05-2024 End: 08-05-2024 Patient encounter procedure JENNIFER MRATINO [facility] Start: 04-10-2024 End: 04-10-2024 ambulatory PA-C JENNIFER MARTINO Facility:[facility] Start: 04-10-2024 End: 04-10-2024 Patient encounter procedure JENNIFER MARTINO [facility] Start: 03-11-2024 End: 03-11-2024 ambulatory PA-C JENNIFER MARTINO Facility:[facility] Start: 03-11-2024 End: 03-11-2024 Patient encounter procedure JENNIFER MARTINO [facility] Start: 03-07-2024 End: 03-07-2024 Evaluation and management of inpatient ASHLEIGH LETHA [facility] Start: 03-06-2024 End: 03-07-2024 Evaluation and management of inpatient [facility] Start: 03-06-2024 End: 03-06-2024 Evaluation and management of inpatient [facility] Start: 02-29-2024 End: 02-29-2024 Evaluation and management of inpatient ASHLEY M SEB [facility] Start: 02-27-2024 ambulatory [facility] Start: 02-27-2024 End: 02-27-2024 ambulatory [facility] Start: 01-17-2024 End: 01-17-2024 ambulatory STEPHANIE BERGER [facility] Start: 09-13-2023 End: 09-13-2023 ambulatory ALINA JAVIER Not Available Start: 08-14-2023 End: 08-14-2023 Office outpatient visit 15 minutes Celso Garibay DO Work Phone: [facility] Comment on above: Atherosclerosis of c oronary artery of [place] heart without angina pectoris, unspecified vessel or lesion type; History of coronary artery bypass graft; Ischemic cardiomyopathy; Essential hypertension, benign Start: 06-18-2023 End: 06-18-2023 ambulatory GABY TELLO [facility] Start: 06-18-2023 End: 06-18-2023 Subsequent hospital visit by physician Gaby Tello DO Work Phone: [facility] Comment on above: Post-menopausal blee ding; Inclusion cyst Start: 05-24-2023 Rx Renewal Ashley Grigsby Work Phone: [facility] 250 DO Work Phone: Start: 05-17-2023 Patient encounter procedure Ashley Grigsby Work Phone: [facility] 250 DO Work Phone: Start: 05-15-2023 [facility] Start: 12-12-2022 End: 12-12-2022 ambulatory MD Ashley Grigsby Work Phone: [facility] Work Phone: Start: 12-12-2022 End: 12-12-2022 Patient encounter procedure MD Ashley Grigsby Work Phone: [facility] Work Phone: Start: 11-20-2022 End: 11-20-2022 ambulatory Imad Asaad [facility] [employer] Other Start: 11-20-2022 Telephone encounter Imad Asaad [facility] Start: 11-10-2022 End: 11-10-2022 Patient encounter procedure MD Ashley Grigsby Work Phone: [facility] [place] Work Phone: Start: 11-02-2022 End: 11-02-2022 Admission to same day surgery center MD Ashley Grigsby Work Phone: [facility] Work Phone: Start: 11-02-2022 End: 11-02-2022 ambulatory MD Ashley Grigsby Work Phone: [facility] Work Phone: Start: 11-01-2022 Telephone encounter Imad Asaad [facility] Start: 11-01-2022 End: 11-01-2022 Admission to same day surgery center MD Ashley Grigsby Work Phone: [facility] Work Phone: Start: 11-01-2022 End: 11-01-2022 ambulatory MD Ashley Grigsby Work Phone: [facility] Work Phone: Start: 10-24-2022 End: 10-24-2022 ambulatory Imad Asaad Other [facility] [employer] Other Start: 10-24-2022 [facility] visit new patient Imad Asaad [facility] Start: 10-16-2022 End: 10-17-[address] ASHLEY GRIGSBY Facility:[facility] Start: 10-09-2022 End: 10-10-[address] ASHLEY GRIGSBY Facility:[facility] Start: 10-05-2022 Rx Renewal Ashley Grigsby Work Phone: [facility] 250 DO Work Phone: Start: 10-04-2022 End: 10-06-[address] ASHLEY GRIGSBY Facility:[facility] Start: 09-19-2022 End: 09-20-[address] DOCTOR PATEL Facility:[facility] Start: 08-15-2022 Office outpatient vi sit 15 minutes Ashley Grigsby Work Phone: [facility] [facility] DO Work Phone: Start: 08-15-2022 Patient encounter procedure Ashley Grigsby Work Phone: [facility] 250 DO Work Phone: Start: 06-02-2022 End: 06-02-2022 Patient encounter procedure Santiago CARRILLO [facility] Start: 05-31-2022 Rx Renewal Ashley Grigsby Work Phone: [facility] 250 DO Work Phone: Start: 02-07-2022 End: 02-07-2022 Patient encounter procedure Ashley Grigsby MD Work Phone: [facility] Start: 02-07-2022 End: 02-07-2022 Subsequent hospital visit by physician Ashley Grigsby MD Work Phone: [facility] Comment on above: Women's annual routi ne gynecological examination Start: 11-21-2021 Rx Renewal Ashley Grigsby Work Phone: [facility] 250 DO Work Phone: Start: 08-17-2021 Office outpatient vi sit 15 minutes Ashley Grigsby Work Phone: [facility] 250 DO Work Phone: Start: 08-19-2019 End: 08-19-2019 Subsequent [facility] Comment on above: Well female [...] 11-02-2032 Screening for malignant neoplasm of colon [facility] Start: 02-07-2027 Screening for malignant neoplasm of cervix [facility] Start: 08-18-2025 End: 08-18-2025 Patient encounter procedure 08/18/2025 11:20 AM EST Office Visit [facility] [address] [place] [address] Celso Garibay DO [address] [place] [address] [facility] Start: 08-03-2025 End: 08-13-2025 Alanine aminotransferase [Enzymatic activity/volume] in Serum or Plasma by With P-5'-P Alanine Aminotransferase Lab Routine Hyperlipidemia, unspecified hyperlipidemia type Expected: 08/03/2025 (Approximate), Expires: 08/13/[address] [facility] Service Area Work Phone: Comment on above: Expected: 08/03/2025 (Approximate), Expi res: 08/13/2025 Start: 08-03-2025 End: 08-13-2025 Aspartate aminotransferase [Enzymatic activity/volume] in Serum or Plasma by With P-5'-P Aspartate Aminotransferase Lab Routine Hyperlipidemia, unspecified hyperlipidemia type Expected: 08/03/2025 (Approximate), Expires: 08/13/2025 [facility] Work Phone: Comment on above: Expected: 08/03/2025 (Approximate), Expi res: 08/13/2025 Start: 08-03-2025 End: 08-13-2025 Lipid 1996 panel - Serum or Plasma Lipid Panel Lab Routine Hyperlipidemia, unspecified hyperlipidemia type Expected: 08/03/2025 (Approximate), Expires: 08/13/2025 [facility] Work Phone: Comment on above: Expected: 08/03/2025 (Approximate), Expi res: 08/13/2025 Start: 03-17-2025 End: 03-17-2025 Patient encounter procedure 03/17/2025 2:40 PM EDT Office Visit [facility] [address] [place] [address] Celso Garibay, [address] [place] [address] [facility] Start: 02-07-2025 Screening for malignant neoplasm of cervix [facility] Start: 08-19-2024 Screening for malignant neoplasm of cervix [facility] Start: 08-19-2024 [facility] Start: 08-19-2024 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 [facility] Start: 08-19-2024 [facility] Start: 08-18-2024 Hospital admission [facility] Start: 08-15-2024 Screening for malignant neoplasm of breast Mammogram [facility] Start: 08-13-2024 End: 08-13-2024 Patient encounter procedure 08/13/2024 11:30 AM EST Office Visit [facility] [address] [place] [address] Celso Garibay, DO [address] [place] [address] [facility] Start: 2024 RSV High Risk: (Elderly (60+) or Population) (1 - Risk 60-74 years 1-dose series) RSV High Risk: (Elderly (60+) or Population) (1 - Risk 60-74 years 1-dose series) [facility] Start: 06-01-2024 COVID-19 Vaccine ( season) COVID-19 Vaccine ( season) [facility] Start: 02-14-2024 Depression Screen Depression Screen [facility] Start: 02-12-2024 End: 08-14-2024 Alanine aminotransferase [Enzymatic activity/volume] in Serum or Plasma by With P-5'-P Alanine Aminotransferase Lab Routine History of coronary artery bypass graft Ischemic cardiomyopathy Expected: 02/12/2024 (Approximate), Expires: 08/14/2024 [facility] Work Phone: Comment on above: Expected: 02/12/2024 (Approximate), Expi res: 08/14/2024 Start: 02-12-2024 End: 08-14-2024 Aspartate aminotransferase [Enzymatic activity/volume] in Serum or Plasma by With P-5'-P Aspartate Aminotransferase Lab Routine Atherosclerosis of coronary artery of [place] heart without angina pectoris, unspecified vessel or lesion type Ischemic cardiomyopathy Expected: 02/12/2024 (Approximate), Expires: 08/14/2024 [facility] Work Phone: Comment on above: Expected: 02/12/2024 (Approximate), Expi res: 08/14/2024 Start: 02-12-2024 End: 08-14-2024 Lipid 1996 panel - Serum or Plasma Lipid Panel Lab Routine Atherosclerosis of coronary artery of [place] heart without angina pectoris, unspecified vessel or lesion type Expected: 02/12/2024 (Approximate), Expires: 08/14/[address] [facility] Service Area Work Phone: Comment on above: Expected: 02/12/2024 (Approximate), Expi res: 08/14/2024 Start: 08-14-2023 FUV, Provider: Celso Garibay, Status: Pen, Time: 3:00 PM FUV, Provider: Celso Garibay, Status: Pen, Time: 3:00 PM [facility] Work Phone: Start: 07-28-2023 Screening for malignant neoplasm of breast Breast cancer screen [facility] Start: 07-24-2023 Screening for malignant neoplasm of breast Mammogram [facility] Start: 07-03-2023 End: 07-03-2023 Patient encounter procedure 07/03/2023 4:45 PM EDT Office Visit [facility] OBSTETRICS & GYNECOLOGY [facility] [address] [place] [address] Gaby Phillips, DO [address] [place] [address] post-op BA 05/16 [facility] OBSTETRICS [facility] Comment on above: post-op BA 05/16 Start: 06-18-2023 End: 06-18-2023 Hysteroscopy bx endometrium&/polypc w/wo d&c DILATATION AND CURETTAGE HYSTEROSCOPY Post-menopausal bleeding Inclusion cyst 06/18/2023 2:01 PM EDT [facility] Start: 02-13-2023 End: 02-13-2023 Patient encounter procedure 02/13/2023 Office Visit Obstetrics and Gynecology Gaby Phillips, DO [address] [place] [address] [facility] OBSTETRICS [facility] Start: 12-12-2022 [facility] Start: 11-02-2022 [facility] Start: 11-01-2022 [facility] Start: 08-19-2022 Screening for malignant neoplasm of cervix Pap smear [facility] Start: 08-15-2022 FUV, Provider: Celso Garibay, Status: Pen, Time: 3:00 PM FUV, Provider: Celso Garibay, Status: Pen, Time: 3:00 PM [facility] Work Phone: Start: 08-03-2022 Lipid panel Lipids [facility] Start: 12-27-2021 COVID-19 Vaccine (4 - Pfizer series) COVID-19 Vaccine (4 - Pfizer series) [facility] Start: 06-01-2019 Influenza vaccination Flu vaccine (#1) [place], [place] Start: 05-09-2018 Pneumococcal Vaccine: Pediatrics (0 to 5 Years) and At-Risk Patients (6 to 64 Years) (2 - PCV) Pneumococcal Vaccine: Pediatrics (0 to 5 Years) and At-Risk Patients (6 to 64 Years) (2 - PCV) [facility] Start: 05-09-2018 Pneumococcal Vaccine: Pediatrics (0 to 5 Years) and At-Risk Patients (6 to 64 Years) (2 of 2 - PCV) Pneumococcal Vaccine: Pediatrics (0 to 5 Years) and At-Risk Patients (6 to 64 Years) (2 of 2 - PCV) [facility] Start: 2014 Breast cancer screen Breast cancer screen [place], [place] Start: 2014 Colon cancer screen colonoscopy Colon cancer screen colonoscopy [place], [place] Start: 2014 Shingles Vaccine (1 of 2) Shingles Vaccine (1 of 2) [facility] Start: 08-26-2009 MMR Vaccines (1 of 1 - Standard series) MMR Vaccines (1 of 1 - Standard series) [facility] Start: 2009 Screening for malignant neoplasm of colon [facility] Start: 1999 Diabetes screen Diabetes screen [facility] Start: 1986 DTaP/Tdap/Td Vaccines (1 - Tdap) DTaP/Tdap/Td Vaccines (1 - Tdap) [facility] Start: 1985 Cervical cancer screen Cervical cancer screen [place], [place] Start: 1985 Screening for malignant neoplasm of cervix [facility] Start: 1983 DTaP/Tdap/Td vaccine (1 - Tdap) DTaP/Tdap/Td vaccine (1 - Tdap) [facility] Start: 1982 Diabetes mellitus screening Diabetes Screening [facility] Start: 1982 Hepatitis C screening [facility] Start: 1979 HIV screen HIV screen [place], [place] Start: 1979 HIV screening HIV screen [facility] Start: 1976 Depression Screen Depression Screen [facility] Start: 1975 DTaP/Tdap/Td vaccine (1 - Tdap) DTaP/Tdap/Td vaccine (1 - Tdap) [facility] Start: 1974 Lipid panel Lipids [facility] Start: 1974 Lipid screen Lipid screen [place], [place] Start: 1964 Hepatitis B vaccine (1 of 3 - 3-dose series) Hepatitis B vaccine (1 of 3 - 3-dose series) [facility] Start: 1964 Hepatitis B Vaccines (1 of 3 - 3-dose series) Hepatitis B Vaccines (1 of 3 - 3-dose series) [facility] Start: 1964 Hepatitis C screen Hepatitis C screen [place], [place] Start: 1964 HIV screening HIV Screening [facility] Start: 1964 Lipid panel Lipid Panel [facility] Start: 1964 Screening for malignant neoplasm of colon [facility] Start: 1964 Yearly Adult Physical Yearly Adult Physical [facility] Actin smooth muscle IgG Ab [Units/volume] in Serum [facility] Alpha 1 antitrypsin [Mass/volume] in Serum or Plasma [facility] Alpha 1 antitrypsin phenotyping [Identifier] in Serum or Plasma by Immunofixation [facility] Ceruloplasmin [Mass/volume] in Serum or Plasma [facility] End: 08-19-2019 Cytopathology procedure, preparation of smear, genital source PAP SMEAR Lab Routine Well female exam with routine gynecological exam 1 Occurrences starting 08/19/2019 until 08/19/2019 [place], [place] Comment on above: 1 Occurrences starting 08/19/2019 until 08/19/2019 End: 02-07-2022 Cytopathology procedure, preparation of smear, genital source PAP SMEAR Lab Routine Women's annual routine gynecological examination 1 Occurrences starting 02/07/2022 until 02/07/2022 [facility] [employer] Work Phone: Comment on above: 1 Occurrences starting 02/07/2022 until 02/07/2022 Glucose measurement estimated from glycated hemoglobin [facility] Hepatitis A virus Ab [Presence] in Serum by Immunoassay [facility] Hepatitis B core ant ibody measurement [facility] Hepatitis B virus khanna rface Ab [Presence] in Serum [facility] Hepatitis B virus khanna rface Ag [Presence] in Serum or Plasma by Immunoassay [facility] Hepatitis C virus Ig G Ab [Presence] in Serum or Plasma by Immunoassay [facility] Homogenous nuclear A b pattern [Titer] in Serum [facility] IgG [Mass/volume] in Serum or Plasma [facility] End: 06-18-2023 INITIATE PACU OXYGEN THERAPY PROTOCOL Initiate PACU Oxygen Therapy Protocol Respiratory Care Routine Continuous until discontinued starting 06/18/2023 [employer] Comment on above: Continuous until discontinued starting 0 06/18/2023 Lipoprotein a [Moles/volume] in Serum or Plasma [facility] Mitochondria M2 IgG Ab [Units/volume] in Serum [facility] Nuclear Ab [Titer] i n Serum [facility] Oxygen therapy [Mini mum Data Set] Initiate Oxygen Therapy Protocol Respiratory Care Routine As Needed until discontinued starting 06/18/2023 [employer] Comment on above: As Needed until discontinued starting Oxygen therapy [Mini mum Data Set] Initiate Oxygen Therapy Protocol Respiratory Care Routine As Needed until discontinued starting 06/18/2023 [employer] Comment on above: As Needed until discontinued starting Patient Education Hemorrhoids ([facility] Work Phone: End: 06-18-2023 , urine POCT , urine POCT Point of Care Testing Routine One Time for 1 Occurrences starting 06/18/2023 until 06/18/2023 [employer] Comment on above: One Time for 1 Occurrences starting 06/01 until 06/18/2023 Surgical Pathology Surgical Path ology Lab Routine Post-menopausal bleeding Inclusion cyst Release Upon Ordering for 1 Occurrences starting 06/18/2023 [employer] Comment on above: Release Upon Ordering for 1 Occurrences starting 06/18/2023 [facility] Immunizations Immunization Date Immunization Notes Care Provider uSdhakar ponce 06-01-2024 influenza, unspecifi ed formulation JENNIFER MARTINO [facility] 06-16-2022 influenza, injectabl e, quadrivalent, preservative free Ashley M Hoy Work Phone: [facility] 250 DO Work Phone: 06-16-2022 zoster vaccine recombinant Ashley M Hoy Work Phone: [facility] 250 DO Work Phone: 08-01-2021 Pfizer-BioNTech COVI D-19 Vacc 30 MCG/0.3ML Intramuscular Suspension Ashley M Hoy Work Phone: [facility] 250 DO Work Phone: 06-30-2021 influenza virus vacc ine, unspecified formulation Ashley M Hoy Work Phone: [facility] 250 DO Work Phone: 06-03-2021 Influenza, injectabl e, Madin [place] Canine Kidney, preservative free, quadrivalent Ashley M Hoy Work Phone: [facility] 250 DO Work Phone: 01-29-2021 Pfizer-BioNTech COVI D-19 Vacc 30 MCG/0.3ML Intramuscular Suspension Ashley M Hoy Work Phone: [facility] 250 DO Work Phone: 01-08-2021 Pfizer-BioNTech COVI D-19 Vacc 30 MCG/0.3ML Intramuscular Suspension Ashley M Hoy Work Phone: [facility] 250 DO Work Phone: 2020 influenza, injectabl e, quadrivalent, preservative free Ashley M Hoy Work Phone: [facility] 250 DO Work Phone: 07-23-2018 influenza, injectabl e, quadrivalent, preservative free Ashley M Hoy Work Phone: [facility] 250 DO Work Phone: 07-26-2017 Influenza, injectabl e, Madin [place] Canine Kidney, preservative free, quadrivalent Ashley M Hoy Work Phone: [facility] 250 DO Work Phone: 05-09-2017 pneumococcal polysaccharide vaccine, 23 valent Ashley M Hoy Work Phone: [facility] 250 DO Work Phone: 07-03-2015 influenza, seasonal, injectable, preservative free Ashley M Hoy Work Phone: [facility] [facility] DO Work Phone: 06-15-2014 influenza, seasonal, injectable Ashley M Hoy Work Phone: [facility] DO Work Phone: 07-29-2009 novel influenza-H1N1 -09, preservative-free, injectable Ashley M Hoy Work Phone: [facility] 250 DO Work Phone: Payers Date Payer Category Payer Self-pay [id number] [phone] [id number] 2022 [facility] [id number] 10-01-2022 Unknown 03-01-2019 Unknown [employer] [place] xxxxxxxxxxxxxxx 2019-Present [address] [place] [address] xxxxxxxxxxxxxxx [id number] 1964 Unknown [id number] 2.16.840.1.263241.3.579.2.5 93 1964 Unknown [id number] 2.16.840.1.612842.3.579.2.5 93 1964 Unknown [id number] 2.16.840.1.016891.3.579.2.5 93 1964 Unknown [id number] 2.16.840.1.314969.3.579.2.5 93 1964 Unknown [id number] 2.16.840.1.506960.3.579.2.5 93 1964 Unknown [id number] 2.16.840.1.395382.3.579.2.1 73 1964 Unknown [id number] 2.16.840.1.045662.3.579.2.1 75 1964 Unknown [id number] 2.16.840.1.085672.3.579.2.1 259 1964 Unknown [id number] 2.16.840.1.339024.3.579.2.1 286 1964 Unknown [id number] 2.16.840.1.486291.3.579.2.1 286 1964 Unknown [id number] 2.16.840.1.104152.3.579.2.1 286 1964 Unknown [id number] 2.16.840.1.047919.3.579.2.1 286 1964 Unknown [id number] 2.16.840.1.285355.3.579.2.1 286 1964 Unknown [id number] 2.16.840.1.240908.3.579.2.1 286 1964 Unknown [id number] 2.16.840.1.906643.3.579.2.1 286 1964 Unknown [id number] 2.16.840.1.901207.3.579.2.7 27 1964 Unknown [id number] 2.16.840.1.883830.3.579.2.7 27 1964 Unknown [id number] 2.16.840.1.471868.3.579.2.7 27 1964 Unknown [id number] 2.16.840.1.816747.3.579.2.1 244 1964 Unknown [id number] 2.16.840.1.857197.3.579.2.1 244 10-01-1959 Unknown [id number] 10-01-1959 Unknown [id number] Unknown [id number] Social History Date Type Detail Facility Start: 08-19-2019 End: 08-14-2023 Tobacco smoking status NHIS Never smoker [place], [place] Start: 08-19-2019 End: 06-18-2023 Alcohol intake Ex-drinker (finding) [place], [place] Start: 1965 Sex Assigned At Not on file [place], [place] Start: 06-18-2023 End: 09-05-2024 No alcohol use No alcohol use [facility] [address] DO Work Phone: Start: 08-19-2019 End: 08-14-2023 Tobacco use and exposure Smokeless tobacco non-user [facility] Work Phone: Start: 06-18-2023 End: 09-05-2024 Sex Assigned At Female [facility] Start: 1965 Sex Assigned At Female [facility] Patient Health Questionnaire 9 item (PHQ-9) total score [Reported] 0 [facility] Start: 08-14-2023 End: 09-05-2024 Alcohol intake Lifetime non-drinker (finding) [facility] Work Phone: Start: 08-04-2023 End: 09-05-2024 Exposure to SARS-CoV-2 (event) Not sure [facility] Start: 08-19-2024 Sex Female (finding) [facility] NEGATED: Highlighted row Denies Caffeine use Denies Caffeine use -[facility] 250 DO Work Phone: Medical [...] 08-05-2024 Functional Status N/A [facility] 04-10-2024 Functional Status N/A [facility] 06-02-2022 Functional Status N/A [facility] Clinical Notes 06-02-2022 to 09-05-2024 Celso Garibay, DO - 09/05/2024 9:20 AM ESTPatient InstructionsAttachments Note Date & Type Note Facility 09-05-2024 History of Present illness Narrative Subjective Jose Alberto Saleem is a 59 y.o. female Chief Complaint Follow-up 59-year-old female returns following acute coronary syndrome, with subsequent two-vessel intervention of the vein graft to the diagonal branch with long 3.5 x 38 mm [place] stent and [place] distal circumflex for in-stent restenosis with 3 x 18 mm Ray stent. LV function is preserved. WHEELER-LAD remains patent, [place] right coronary vein graft right coronary is chronically occluded (known from the past) and collateralized via left coronary system, and vein graft to the OM 2 is also occluded chronically however [place] circumflex is intact. Patient is otherwise stable [...] Atherosclerosis of coronary artery bypass graft of [place] heart without angina pectoris 2. S/P PTCA [...] discussion and plan. documented in this encounter [facility] Work Phone: 09-05-2024 Instructions Jasmyne [...] be sent through Care Everywhere.Heart Healthy Diet (Mongolian)documented in this encounter [facility] Work Phone: 08-19-2024 Evaluation note Diagnosis Onset Date Resolution Atypical chest pain acute Novem rocky 2023 11:18pm [facility] Work Phone: 1(975) 307-159311-13-2024 History of Present illness Narrative* Celso Garibay DO - 08/13/2024 11:30 AM EST Subjective Jose Alberto Saleem is a 59 y.o. female Chief Complaint Annual Exam 59-year-old female returns for annual visit, she just got back from [place] from vacation last evening and is doing [...] has a history of remote CABG, remote ND, remote PCI's before and after her CABG [...] Assessment/Plan 1. Atherosclerosis of coronary artery of [place] heart without angina pectoris, unspecified vessel or lesion type Follow Up In Cardiology 2. History of coronary artery bypass graft Follow Up In Cardiology 3. Essential hypertension, benign 4. Hyperlipidemia, unspecified hyperlipidemia type 5. Acute pancreatitis, unspecified complication status, unspecified pancreatitis type ([facility]) Scribe Attestation By signing my name below, [...] exam, discussion and plan. [facility]: 1(498) 846-434611-13-2024 Instructions* Patient Instructions* Bettie Ugalde LPN - [...] Provided instructions on exercise. [facility] Phone: 1(503) 166-646511-05-2024 Hospital Discharge instructions Patient Education 08/05/2024 12:20:10 Kidney Stones, Vcyy-af-Ckbp Kidney Stones Kidney stones are rock-like masses [...] Follow these instructions at home: Medicines Take eqgj-ocv-yokozag and prescription medicines only as told by [...] provider. Document Revised: 05/11/2023 Document Reviewed: 05/11/2023 [employer] Patient Education 2023 [employer]. Follow Up Care 06/06/2024 11:10:21 With:SALENA REDDY, JENNIFER López, URL Address: When:1 year [facility] 11-05-2024 NotePatient Education Urology Kidney Stones Kidney [...] these instructions at home: Medicines ??? Take srfh-dtg-hysergx and prescription medicines only as told by [...] Reviewed: 05/11/2023 Elsevier Patient Education ? 2023 [employer] 04-10-2024 Hospital Discharge instructions Patient Education 04/10/2024 16:08:23 Kidney Stones, Slum-dd-Igwx Kidney Stones Kidney stones are rock-like masses [...] Follow these instructions at home: Medicines Take pbut-fmo-somatzs and prescription medicines only as told by [...] provider. Document Revised: 05/22/2022 Document Reviewed: 05/22/2022 [employer] Patient Education 2022 [employer]. Follow Up Care 03/10/2024 08:31:33 With:JENNIFER MARTINO PA-C, URL Address: [address] [place] [address] When:3 months [facility] 07-11-2024 NotePatient Education Urology Kidney Stones [...] these instructions at home: Medicines ? Take ccie-kts-kqhkuia and prescription medicines only as told by [...] provider. Document Revised: 05/22/2022 Document Reviewed: 05/22/2022 [employer] Patient Education ? 2022 [employer] 02-27-2024 Note Attestation signed by Danielle Cesar MD at 02/27/2024 2:30 PM I personally saw and examined the patient on the same date of service as resident/fellow . I discussed the findings and therapeutic plan with the resident/fellow . I agree with the documentation, except for any edits/updates below. [facility] [place] Gastroenterology New Patient Visit - History & [...] pectoris (CMS/HCC) Atherosclerosis of coronary artery of [place] heart without angina pectoris Cellulitis of right [...] Mother Gretta Hyperlipidemia Father Munoz Hyperlipidemia Brother [place] Heart attack Brother Luis Manuel SOCIAL HISTORY: [...] negative HEENT: negative RESPI (more content not included)...[facility] 08-14-2023 History of Present illness Narrative* Celso [...] has a history of remote CABG, remote ND, remote PCI's before and after her CABG [...] Assessment/Plan 1. Atherosclerosis of coronary artery of [place] heart without angina pectoris, unspecified vessel or lesion type 2. History of coronary artery bypass graft 3. Ischemic cardiomyopathy 4. Essential hypertension, benign documented in this [facility] Work Phone: 1(495) 625-919911-14-2023 Instructions* Patient Instructions* Ej Braswell MA - [...] time of your visit. documented in this [facility] Work Phone: 1(201) 620-771209-18-2023 Hospital Discharge instructions* Discharge Instructions* Lissa Ocasio [...] call if excessive. Call the office at [phone] ([place]) [phone] ([place]) for an appointment in 2 weeks. [facility] History of Present illness Narrative* Sejal Pro [...] pre-opvisit with Dr. Tripathi. documented in this [facility] Evaluation note* Encounter Date Diagnosis Assessment Notes Treatment Notes Treatment Clinical Notes Nov, Elevated liver function tests (ICD-10 - R94.5) [facility] Other 02-02-2023 Procedure [facility]02-01-2023 Procedure [facility]01-24-2023 Evaluation note* Encounter Date Diagnosis Assessment Notes Treatment Notes Treatment Clinical Notes Oct, Abdominal pain (ICD-10 - R10.9) Oct, Common bile duct dilatation (ICD-10 - K83.8) Oct, Elevated liver enzymes (ICD-10 - R74.8) Oct, Constipation (ICD-10 - K59.00) Colonoscopy Start Miralax daily after colonoscopy. Titration dosing discussed with patient. Oct, Colon cancer screening (ICD-10 - Z12.11) [facility] Other 01-04-2023 NotePROGRESS NOTE NOTE DATE: 10/04/2022 CHIEF COMPLAINT: Abdominal pain. HISTORY OF PRESENT ILLNESS: The patient is a 57-year-old female with a history of dyslipidemia and gastric bypass surgery, who has been having increasing abdominal pain and flank pain. She was seen yesterday at the [facility] for epigastric and upper abdominal [...] Prophylaxis: Lovenox. DISPOSITION: Home when medically stable.[id number] Discharge instructions Patient Education 06/02/2022 08:51:52 Kidney Stones, Vdet-nv-Gokh Kidney Stones Kidney stones are rock-like masses [...] Follow these instructions at home: Medicines Take gbnt-axj-xltzobd and prescription medicines only as told by [...] 03/05/2009 Document Revised: 02/03/2020 Document Reviewed: 02/03/2020 [employer] Patient Education 2019 [employer]. Follow Up Care 05/27/2021 09:10:08 With:LORENA STRAUSS, Santiago Guzman, URL Address: [address] [place], [place] [id number]- When: Unknown [facility] evaluation + Plan note Future Appointments Appointment Date:06/01/2023 08:00:00 AM Scheduled Provider:Santiago CARRILLO MD Location:[facility] Appointment Type:URO Office Visit [facility] evaluation + Plan note Future Appointments Appointment Date:04/10/2024 03:00:00 PM Scheduled Provider:JENNIFER MARTINO PA-C Location:[facility] Appointment Type:URO Office Visit [facility] evaluation + Plan note Future Scheduled Tests Radiology* XR Abdomen 1 View 08/05/25 [facility] evaluation note* Diagnosis Women's annual routine gynecological examination documented in this encounter [facility] Work Phone: evalaeacdu noteNo assessment information available [facility] Work Phone: Evaluation noteNo InformationNort Izooble Other Evaluation note* Diagnosis Post-menopausal bleeding Postmenopausal bleeding Inclusion cyst Sebaceous cyst documented [facility] this [facility] Diagnosis Atherosclerosis of coronary artery of [place] heart without angina pectoris, unspecified vessel or lesion type 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 Ischemic cardiomyopathy Other specified forms of chronic ischemic heart disease Essential hypertension, benign documented in this encounter [facility] Work Phone: Evaluation note* Diagnosis Atherosclerosis of coronary artery of [place] heart without angina pectoris, unspecified vessel or lesion type 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 Essential hypertension, benign Hyperlipidemia, unspecified hyperlipidemia type Acute pancreatitis, unspecified complication status, unspecified pancreatitis type ([facility]) documented in this encounter [facility] Work Phone: Evaluation note* Diagnosis Atherosclerosis of coronary artery bypass graft of [place] heart without angina pectoris S/P PTCA (percutaneous transluminal coronary angioplasty) Postsurgical percutaneous transluminal coronary angioplasty status 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 Ischemic cardiomyopathy Other specified forms of chronic ischemic heart disease Essential hypertension Unspecified essential hypertension Mixed hyperlipidemia BMI 30.0-30.9,adult Statin intolerance documented in this encounter [facility] Work Phone: History and physical note Author Evert Bruno [facility] November 01, 2022 12:40pm Note Date/Time November 01, 2022 1 2:40pm [facility] [address] [place] [address] Gastroenterology H&P Signed Patient: Jose Alberto Saleem MR#: [id number] : 1965 Acct:[id number] Age/Sex: 57 / F Adm Date: 3 Loc: Room: Type: [facility] Attending Dr: Evert Bruno MD Copies [...] signed by Evert Bruno MD> 11/01/22 1240 [facility] Work Phone: History and physical note Author Evert Bruno [facility] November 02, 2022 2:14pm Note Date/Time November 02, 2022 2 :14pm [facility] [address] [place] [address] Gastroenterology H&P Signed Patient: Jose Alberto Saleem MR#: [id number] : 1965 Acct:[id number] Age/Sex: 57 / F Adm Date: 3 Loc: Room: Type: [facility] Attending Dr: Evert Bruno MD Copies [...] signed by Evert Bruno MD> 11/02/22 1414 [facility] Work Phone: History general Narrative - Reported* Type Description Date Medical History impaired fasting glucose Medical History heart disease, ND stents, CABG Medical History Hypertension Medical History hyperlipidemia 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 Surgical History CABG remote history Surgical History gastric bypass 2017 Surgical History multiple kidney stones removed Surgical History appendectomy Surgical History cyst on ovarian removed Surgical History bilateral carpe tunnel surgery 2021 Surgical History cholecystectomy Hospitalization History see surgical hx [place] Other Hospital course Narrative No data available for this section [facility] Hospital Discharge instructions Additional Instructions DISCHARGE [...] NOT operate machinery such as power tools, eRepublikn mowers, Mediastream blowers, sewing machines, etc. for 24 hours. [...] problems. -Follow up with PCP. -Office number [phone]. [facility] Work Phone: Hospital Discharge instructions Additional [...] problems. -Follow up with PCP. -Office number [phone]. [facility] Work Phone: Hospital Discharge instructions No data available for this section [facility] progress note No data available for this section [facility] reason for referral (narrative)* Consultation (Routine) - Authorized Specialty Diagnoses / Procedures Referred By Manfred flynn Referred To Contact Cardiology Diagnoses Atherosclerosis of coronary artery of [place] heart without angina pectoris, unspecified vessel or lesion type History of coronary artery bypass graft Procedures Follow Up In Cardiology Celso Garibay DO [address] [address] Celso Garibay DO [address] [place] [address], [address] [address] Referral ID Status Reason Start Date Expiration Date V isits Requested Visits Authorized [id number] Authorized 08/14/2023 08/13/2024 1 1 [facility] Work Phone: Summary Purpose Family History No [...] FoundDocuments on File Type Date Recorded 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 * [place] [employer] is class I * Recommendations, [...] She has a history of prior inferior ND, prior PCI with subsequent three-vessel CABG and [...] She has a history of prior inferior ND, prior PCI with subsequent three-vessel CABG and [...] and content) DATE CREATED AUTHOR 03/26/2018 [facility] DATE CREATED AUTHOR AUTHOR'S ORGANIZ ATION 03/26/2018 [facility] DATE CREATED AUTHOR AUTHOR'S ORGANIZ ATION 08/02/2022 [facility] dical Specialist DATE CREATED AUTHOR AUTHOR'S ORGANIZ ATION 08/17/2022 [facility] DATE CREATED AUTHOR AUTHOR'S ORGANIZ ATION 10/17/2022 [facility] DATE CREATED AUTHOR AUTHOR'S ORGANIZ ATION 06/23/2023 [facility] DATE CREATED AUTHOR AUTHOR'S ORGANIZ ATION 07/16/2023 [facility] DATE CREATED AUTHOR AUTHOR'S ORGANIZ ATION 09/15/2023 [facility] dical Specialists [facility] DATE CREATED AUTHOR AUTHOR'S ORGANIZ ATION 01/19/2024 [facility] DATE CREATED AUTHOR AUTHOR'S ORGANIZ ATION 03/03/2024 [facility] DATE CREATED AUTHOR AUTHOR'S ORGANIZ ATION 03/07/2024 [facility] DATE CREATED AUTHOR AUTHOR'S ORGANIZ ATION 08/06/2024 [facility] DATE CREATED AUTHOR AUTHOR'S ORGANIZ ATION 09/13/2024 [facility] DATE CREATED AUTHOR AUTHOR'S ORGANIZ ATION 09/15/2024 [facility] Care Teams (unrecognized sec [...] Active Evert Bruno MD Attending Provider Active Casting Assistant Relationship Specialty Start Date End Date Ashley Grigsby MD [address] [place] [address] PCP - General Family Medicine 08/19/19 Casting Assistant Relationship Specialty Start Date End Date Ashley Grigsby MD [address] [place] [address] PCP - General Family Medicine 08/19/19 Casting Assistant Relationship Specialty Start Date End Date Ashley Grigsby MD [address] [place] [address] PCP - General 08/17/21 Casting Assistant Relationship Specialty Start Date End Date Ashley Grigsby MD [address] [place] [address] PCP - General 08/17/21 Casting Assistant Relationship Specialty Start Date End Date Ashley Grigsby MD [address] [place] [address] PCP - General 08/17/21 Anita Hammonds, vocational psychologistCo Pilot 08/22/24 REASON FOR VISIT (unrecogniz ed section and content) Specialty Diagnoses / Procedures Referred By Contfélix t Referred To Contact Diagnoses Post-menopausal bleeding Inclusion cyst Post-menopausal bleeding [N95.0] Inclusion cyst [L72.0] Procedures UT HYSTEROSCOPY BX ENDOMETRIUM&/POLYPC W/WO D&C UT DESTRUCTION BENIGN LESIONS UP TO 14 DILATATION AND CURETTAGE HYSTEROSCOPY-REMOVAL OF INCLUSION CYST Gaby Phillips, DO [address] [place] [address] [facility] [address] [place] [address] Referral ID Status Reason Start Date Expiration Date Visits Re quested Visits Authorized [id number] 1 1 Reason Comments Annual Exam 1yr Specialty Diagnoses / Procedures Referred By Manfred flynn Referred To Contact Cardiology Diagnoses Atherosclerosis of coronary artery of [place] heart without angina pectoris, unspecified vessel or lesion type History of coronary artery bypass graft Procedures Follow Up In Cardiology [place] Celso Pam, 7[address] [facility], [address] [address] Phone: tel: fax: Celso Garibay, DO [address] [facility], [address] [address] Phone: tel: fax: Referral ID Status Reason Start Date Expiration Date V isits Requested Visits Authorized [id number] Authorized 08/14/2023 08/13/2024 1 1 Reason Comments Follow-up [facility] discharge 08/22 Ordered Prescriptions (unrec ognized section [...] (NoRateChange - Provider: Lynnette Walden APRN - LOGGING CREW SUPERVISOR)[id number] (Paused - Provider: OTONIEL Fragoso CRNA - [...] BE BASED ON THE PRIMARY CLINICAL RECORDS. [facility]. provides no warranty or guarantee of the accuracy or completeness of information in this document.
--- NOTE | 2024-09-30 17:27 | ECG_ITS ---
[facility] Test Date: 2024-09-30 Pat Name: JOSE ALBERTO SALEEM Department: Room: - Gender: Female Game Author: : 1965 Requested By: ASHLEY GRIGSBY Order Number: [id number] Reading MD: MADELIN MONROY Measurements Intervals [place] Rate: 70 P: 63 MN: 164 QRS: -43 QRSD: 84 T: 30 QT: 388 QTc: 409 Interpretive Statements 1100 Sinus rhythm 3114 Cannot rule out anterior myocardial infarction, age undetermined 7200 Abnormal left axis deviation 8102 Low QRS voltage in chest leads 9150 abnormal ECG Electronically Signed On 10-02-2024 16:30:09 EST by MADELIN MONROY
--- NOTE | 2024-09-30 17:41 | ED_ITS ---
HPI HPI - General Adult General Chief complaint: Recheck/Abnormal Lab/Rx Stated complaint: LABS ABNORMAL Time Seen by Provider: 09/30/24 17:14 Source: patient Mode of arrival: walk-in Limitations: no limitations History of Present Illness HPI narrative: 59-year-old female presents for abdominal pain and abnormal blood test. She is complaining of pain in the left upper quadrant and that is been there for several days. She had outpatient blood test done yesterday and her amylase was elevated and she was told to come here by her PCP. No trauma or fever. She has had issues with recurrent pancreatitis. She does not have a gallbladder and does not drink alcohol. No fever and the pain is moderate and continuous. Related Data Home Medications ?Medication ?Instructions ?Recorded ?Confirmed aspirin 81 mg tablet,delayed 81 mg PO BEDTIME 01/25/24 09/30/24 release cevimeline 30 mg capsule 30 mg PO TID 01/25/24 09/30/24 citalopram 40 mg tablet 40 mg PO DAILY 01/25/24 09/30/24 fluticasone propionate 50 2 spray intranasal BID 01/25/24 09/30/24 mcg/actuation nasal spray,suspension rabeprazole 20 mg tablet,delayed 20 mg PO BID 01/25/24 09/30/24 release tamsulosin 0.4 mg capsule 0.4 mg PO DAILY 01/25/24 09/30/24 amlodipine 2.5 mg tablet mg 09/30/24 clopidogrel 75 mg tablet mg 09/30/24 estradiol 0.01% (0.1 mg/gram) vaginal 09/30/24 vaginal cream aucgby-mcfdsfua-oufxpge cap PO 09/30/24 24,000-76,000-120,000 unit capsule,delayed rel (Creon) mirabegron 25 mg tablet,extended 50 mg PO DAILY 09/30/24 09/30/24 release 24 hr nitroglycerin 0.4 mg sublingual mg 09/30/24 tablet nystatin 100,000 unit/gram topical topical 09/30/24 powder (Nystop) Previous Rx's ?Medication ?Instructions ?Recorded acetaminophen 300 mg-codeine 30 mg 1 tab PO Q6H PRN pain 2 days #7 04/29/24 tablet tabs Allergies Allergy/AdvReac Type Severity Reaction Status Date / Time latex Allergy Severe Anaphylaxis Verified 01/25/24 16:00 Penicillins Allergy Intermediate Hives Verified 01/25/24 16:00 Sulfa (Sulfonamide Allergy Intermediate Verified 01/25/24 16:00 Antibiotics) adhesive tape AdvReac Verified 01/25/24 16:00 Opioid HPI Opioid Management Most Recent Opioid Data: Last Pain Scale 4 09/30/24 17:43 09/30/24 Last MAR Pain Assessment 09/30/24 17:43 Last ORT Total Score 1 02/04/24 17:43 02/04/24 Last ORT Risk Category Low Risk 02/04/24 17:43 02/04/24 Review of Systems ROS Narrative A ten point review of systems is negative except as noted above. [facility] Medical History (Updated 09/30/24 @ 18:26 by Gómez Madera MD) Acute pancreatitis ?K85.90 - Acute pancreatitis without necrosis or infection, unspecified (ICD- 10) Acute abdomen ?R10.0 - Acute abdomen (ICD-10) Depression ?F32.A - Depression, unspecified (ICD-10) Cataract ?H26.9 - Unspecified cataract (ICD-10) Hyperlipidemia ?E78.5 - Hyperlipidemia, unspecified (ICD-10) History of prediabetes ?Z87.898 - Personal history of other specified conditions (ICD-10) Hypertension ?I10 - Essential (primary) hypertension (ICD-10) Surgical History H/O rhinoplasty ?Z98.890 - Other specified postprocedural states (ICD-10) History of carpal tunnel release of both wrists ?Z98.890 - Other specified postprocedural states (ICD-10) H/O gastric bypass ?Z98.84 - Bariatric surgery status (ICD-10) H/O heart artery stent ?Z95.5 - Presence of coronary angioplasty implant and graft (ICD-10) History of quadruple bypass ?Z95.1 - Presence of aortocoronary bypass graft (ICD-10) Hx of appendectomy ?Z90.49 - Acquired absence of other specified parts of digestive tract (ICD- 10) H/O hernia repair ?Z98.890 - Other specified postprocedural states (ICD-10) ?Z87.19 - Personal history of other diseases of the digestive system (ICD-10) Hx of cholecystectomy ?Z90.49 - Acquired absence of other specified parts of digestive tract (ICD- 10) Family History (Updated 01/25/24 @ 15:51 by Tamanna Stoll) Mother Family history of CHF (congestive heart failure) Family history of hypertension Father Family history of CHF (congestive heart failure) Family history of COPD (chronic obstructive pulmonary disease) Brother Family history of CHF (congestive heart failure) Family history of stroke Family history of myocardial infarction Family history of hypertension Grandmother Family history of cancer Sister Family history of hypertension Social History (Updated 02/04/24 @ 20:01 by Carrie Guzman) Within the past year, how often did you have a drink containing alcohol: never Score interpretation: A score less than 3 is consistent with normal alcohol consumption. 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 Highest level of school completed/degree received: Bachelor's degree Are you now , , , , never or living with a partner: In a typical week, how many times do you talk on the telephone with family, fr iends, or neighbors: 3 or more times per week How often do you get together with friends or relatives: 3 or more times per week How often do you attend nondenominational or orthodoxy services: 1-3 times per year Little interest or pleasure in doing things: not at all Feeling down, depressed, or hopeless: not at all Feel stressed/tense/nervous/anxious/difficulty sleeping: to some extent Do you think of yourself as: straight/heterosexual Gender Identity: female Exam Narrative Exam Narrative: Nurses note and vital signs reviewed and patient is not hypoxic. General: The patient appears well and in no apparent distress. Patient is resting comfortably on cart. Skin: Warm, dry, no pallor noted. There is no rash noted. Head: Normocephalic, atraumatic Eye: Normal conjunctiva, no drainage Ears, Nose, Mouth, and Throat: oral mucosa is moist. Nares patent. Cardiovascular: Regular Rate and Rhythm Respiratory: Patient is in no distress, no accessory muscle use, lungs are clear to auscultation, no wheezing, rales or rhonchi Back: non-tender GI: Soft and nondistended. She has tenderness in the left upper quadrant without mass. Musculoskeletal: The patient has no evidence of calf tenderness, no pitting edema, symmetrical pulses noted bilaterally Neurological: A&O, normal speech Psychiatric: Cooperative Constitutional Vital Signs, click to edit/add: Last Vital Signs Temp 97.8 F 09/30/24 17:08 Pulse 75 09/30/24 17:08 BP 149/90 H 09/30/24 17:08 Pulse Ox 100 09/30/24 17:08 O2 Del Method Room Air 09/30/24 17:08 Course Vital Signs Vital signs: Vital Signs Temperature 97.8 F 09/30/24 17:08 Pulse Rate 75 09/30/24 17:08 Blood Pressure 149/90 H 09/30/24 17:08 Pulse Oximetry 100 09/30/24 17:08 Oxygen Delivery Method Room Air 09/30/24 17:08 Temperature 97.8 F 09/30/24 17:08 Pulse Rate 75 09/30/24 17:08 Blood Pressure 149/90 H 09/30/24 17:08 Pulse Oximetry 100 09/30/24 17:08 Oxygen Delivery Method Room Air 09/30/24 17:08 Medical Decision Making MDM Narrative Medical decision making narrative: Amylase and lipase are elevated and CT of the abdomen is pending at the time of this dictation. Case is discussed with Dr. Dejesus who is seen the patient here in the emergency department and the patient is being admitted. Findings were discussed with the patient Differential Diagnosis Differential Diagnosis: Pancreatitis, nonspecific abdominal pain, colitis, duodenitis Lab Data Lab results reviewed: Yes I reviewed the patient's lab results Labs: Lab Results 09/30/24 Range/Units 17:24 WBC 6.7 (4.0-11.0) 10^3/uL RBC 5.04 (4.20-5.40) 10^6/uL Hgb 15.4 (12.0-16.0) g/dL Hct 46.4 (36.0-48.0) % MCV 92.1 (81.0-99.0) fL MCH 30.6 (26.7-34.0) pg MCHC 33.2 (29.9-35.2) g/dL RDW 12.3 (11.0-15.0) % Plt Count 235 (150-450) 10^3/uL MPV 9.5 (9.5-13.5) fL Neut % (Auto) 62.7 (43.0-75.0) % Lymph % (Auto) 22.8 (20.5-60.0) % Cole % (Auto) 10.0 (1.7-12.0) % Eos % (Auto) 4.0 (0.9-7.0) % Baso % (Auto) 0.4 (0.2-2.0) % Neut # (Auto) 4.2 (1.4-6.5) 10^3/uL Lymph # (Auto) 1.5 (1.2-3.8) 10^3/uL Cole # (Auto) 0.7 (0.3-0.8) 10^3/uL Eos # (Auto) 0.3 (0.0-0.7) 10^3/uL Baso # (Auto) 0.0 (0.0-0.1) 10^3/uL Abs Immat Gran (auto) 0.01 (0.00-0.03) 10^3/uL Imm/Tot Granulo (auto) 0.1 (0.0-0.5) % Sodium 140 (136-145) mmol/L Potassium 4.2 (3.5-5.1) mmol/L Chloride 103 (98-107) mmol/L Carbon Dioxide 30.6 (21.0-32.0) mmol/L Anion Gap 10.6 BUN 25.0 H (7.0-18.0) mg/dL Creatinine 0.74 (0.55-1.02) mg/dL Est GFR ( Amer) >60 (>=60 mL/min/1.73m^2) Est GFR (Non-Af Amer) >60 (>=60 mL/min/1.73m^2) BUN/Creatinine Ratio 33.8 Glucose 110 H (74-106) mg/dL Calcium 10.2 H (8.5-10.1) mg/dL Total Bilirubin 0.3 (0.2-1.0) mg/dL Direct Bilirubin 0.1 (0.0-0.2) mg/dL AST 29 (15-37) U/L ALT 51 (14-59) U/L Alkaline Phosphatase 114 (46-116) U/L Total Protein 7.3 (6.4-8.2) g/dL Albumin 3.8 (3.4-5.0) g/dL Globulin 3.5 g/dL Albumin/Globulin Ratio 1.1 Amylase 234 H (25-115) U/L Lipase 163.0 H (16.0-77.0) U/L ECG Data Attestation: I personally reviewed and interpreted this ECG as follows: (EKG on my interpretation shows normal sinus rhythm with rate of 70 and no acute change) Discharge Plan Discharge Chief Complaint: Recheck/Abnormal Lab/Rx Clinical Impression: Pancreatitis Patient Disposition: Admitted as Observation Time of Disposition Decision: 18:26 Condition: Good
[2024-09-30] MEDS: ONDANSETRON PF 4 MG/2 ML VIAL IV (17:43)
[2024-09-30] MEDS: 0.9 % SODIUM CHLORIDE 1,000 ML 100 ML IV (17:43)
[2024-09-30] MEDS: MORPHINE SULFATE 4 MG/ML VIAL IV (17:43)
[2024-09-30 17:51] LABS: Basophils Percent Auto 0.4 % (0.2-2.0); Eosinophils Absolute Auto 0.3 10^3/uL (0.0-0.7); Hematocrit 46.4 % (36.0-48.0); Hemoglobin 15.4 g/dL (12.0-16.0); Immature Granulocytes Abs Auto 0.01 10^3/uL (0.00-0.03); Immature Granulocytes Pct Auto 0.1 % (0.0-0.5); Lymphocytes Absolute Auto 1.5 10^3/uL (1.2-3.8); Lymphocytes Percent Auto 22.8 % (20.5-60.0); Mean Corpuscular HGB Conc 33.2 g/dL (29.9-35.2); Mean Corpuscular Hemoglobin 30.6 pg (26.7-34.0); Mean Corpuscular Volume 92.1 fL (81.0-99.0); Mean Platelet Volume 9.5 fL (9.5-13.5); Monocytes Absolute Auto 0.7 10^3/uL (0.3-0.8); Neutrophils Absolute Auto 4.2 10^3/uL (1.4-6.5); Neutrophils Percent Auto 62.7 % (43.0-75.0); Platelet Count 235 10^3/uL (150-450); Red Blood Count 5.04 10^6/uL (4.20-5.40); Red Cell Distribution Width 12.3 % (11.0-15.0); White Blood Count 6.7 10^3/uL (4.0-11.0)
--- NOTE | 2024-09-30 17:53 | CT_ITS ---
[facility] [address], [place] [address] Patient Name: JOSE ALBERTO SALEEM MRN: [id number] date: 1965 Sex: F Assigned Patient Location: ER Current Patient Location: .MAIN Accession/Order Number: [id number] Exam Date: 09/30/2024 18:06 Report Date: 09/30/2024 18:50 At the request of: CYRUS WOODALL Procedure: CT abdomen pelvis w con EXAM: CT abdomen pelvis w con HISTORY: Pain, elevated amylase . History of pancreatitis. COMPARISON: CT scans 04/29/2024 and earlier. TECHNIQUE: CT abdomen pelvis with contrast. Axial scans with reformatted coronal sagittal images. Individualized radiation dose reduction used for this exam. Contrast: 100 mL Omnipaque 300 FINDINGS: Lower chest: Lung bases clear, no acute process. ABDOMEN: Normal homogeneous liver without focal lesion. Previous close x-ray. Prominent traction x-ray biliary tract unchanged. No abnormality seen in the duct. Normal pancreatic enhancement without mass or cyst or surrounding inflammation. A few calcification seen consistent with residual of previous pancreatitis. Duct is visible but nonspecific mildly dilated. Right adrenal gland, spleen unremarkable. Left adrenal gland unremarkable except for small calcification posteriorly unchanged. No ascites or abdominal fluid or inflammation. No increasing adenopathy. Normal size enhancement aorta and branches, normal venous enhancement. Normal symmetric kidneys without solid mass or hydronephrosis, normal ureters. Benign-appearing cyst right kidney 2.9 cm. No bowel dilatation ileus or obstruction. Moderate to large amount of gas will throughout colon. Previous appendectomy. 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 Pelvis: No mass or adenopathy or free fluid. Large amount of gas stool in the rectum. Fluid in the bladder. No uterine or adnexal pathology. MUSCULOSKELETAL: No suspicious bone lesion. Degenerative changes stable. CT/CT abdomen pelvis w con IMPRESSION: 1. No acute abnormality lower chest abdomen pelvis. No evidence of pancreatitis. 2. Incidental findings including prominent intra and extrahepatic biliary tract mildly prominent pancreatic duct unchanged. Pancreatic calcifications consistent with chronic pancreatitis again noted. Benign-appearing right renal cyst. 3. Large amount of gas will throughout the colon especially rectum which appears distended. Electronically authenticated by: RAMANDEEP POTTER Date: 09/30/2024 18:50
--- NOTE | 2024-09-30 17:58 | P.HP_ITS ---
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 Her pain was worse last night, she obtained her lab results and her amylase was over 200 and her lipase is over 700, also mild elevation in her LFTs, recommended to present to the emergency room for admission for acute pancreatitis In the past the workup was been unremarkable for the etiology of her recurrent pancreatitis she has no gallbladder, she has seen pancreatologist in the past. Opioid HPI Opioid Management Most Recent Pain and Opioid Data: Last Pain Scale 4 09/30/24 17:43 09/30/24 Last MAR Pain Assessment 09/30/24 17:43 Last ORT Total Score 1 02/04/24 17:43 02/04/24 Last ORT Risk Category Low Risk 02/04/24 17:43 [facility]04/24 [facility] History (Updated 04/29/24 @ 01:30 by Gómez Madera MD) Acute pancreatitis ?K85.90 - Acute pancreatitis without necrosis or infection, unspecified (ICD- 10) Acute abdomen ?R10.0 - Acute abdomen (ICD-10) Depression ?F32.A - Depression, unspecified (ICD-10) Cataract ?H26.9 - Unspecified cataract (ICD-10) Hyperlipidemia ?E78.5 - Hyperlipidemia, unspecified (ICD-10) History of prediabetes ?Z87.898 - Personal history of other specified conditions (ICD-10) Hypertension ?I10 - Essential (primary) hypertension (ICD-10) Surgical History (Updated 01/25/24 @ 15:50 by Tamanna Stoll) H/O rhinoplasty ?Z98.890 - Other specified postprocedural states (ICD-10) History of carpal tunnel release of both wrists ?Z98.890 - Other specified postprocedural states (ICD-10) H/O gastric bypass ?Z98.84 - Bariatric surgery status (ICD-10) H/O heart artery stent ?Z95.5 - Presence of coronary angioplasty implant and graft (ICD-10) History of quadruple bypass ?Z95.1 - Presence of aortocoronary bypass graft (ICD-10) Hx of appendectomy ?Z90.49 - Acquired absence of other specified parts of digestive tract (ICD- 10) H/O hernia repair ?Z98.890 - Other specified postprocedural states (ICD-10) ?Z87.19 - Personal history of other diseases of the digestive system (ICD-10) Hx of cholecystectomy ?Z90.49 - Acquired absence of other specified parts of digestive tract (ICD- 10) Family History (Updated 01/25/24 @ 15:51 by Tamanna Stoll) Mother Family history of CHF (congestive heart failure) Family history of hypertension Father Family history of CHF (congestive heart failure) Family history of COPD (chronic obstructive pulmonary disease) Brother Family history of CHF (congestive heart failure) Family history of stroke Family history of myocardial infarction Family history of hypertension Grandmother Family history of cancer Sister Family history of hypertension Social History (Updated 02/04/24 @ 20:01 by Carrie Guzman) Within the past year, how often did you have a drink containing alcohol: never Score interpretation: A score less than 3 is consistent with normal alcohol consumption. 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 Highest level of school completed/degree received: Bachelor's degree Are you now , , , , never or living with a partner: In a typical week, how many times do you talk on the telephone with family, friends, or neighbors: 3 or more times per week How often do you get together with friends or relatives: 3 or more times per week How often do you attend voodoo or hinduism services: 1-3 times per year Little interest or pleasure in doing things: not at all Feeling down, depressed, or hopeless: not at all Feel stressed/tense/nervous/anxious/difficulty sleeping: to some extent Do you think of yourself as: straight/heterosexual Gender Identity: female Meds Home Medications and Allergies Home Medications ?Medication ?Instructions ?Recorded ?Confirmed ?Type aspirin 81 mg tablet,delayed 81 mg PO BEDTIME 01/25/24 09/30/24 History release cevimeline 30 mg capsule 30 mg PO TID 01/25/24 09/30/24 History citalopram 40 mg tablet 40 mg PO DAILY 01/25/24 09/30/24 History fluticasone propionate 50 2 spray intranasal BID 01/25/24 09/30/24 History mcg/actuation nasal spray,suspension rabeprazole 20 mg tablet,delayed 20 mg PO BID 01/25/24 09/30/24 History release tamsulosin 0.4 mg capsule 0.4 mg PO DAILY 01/25/24 09/30/24 History acetaminophen 300 mg-codeine 30 mg 1 tab PO Q6H PRN pain 2 days #7 04/29/24 Rx tablet tabs amlodipine 2.5 mg tablet mg 09/30/24 History clopidogrel 75 mg tablet mg 09/30/24 History estradiol 0.01% (0.1 mg/gram) vaginal 09/30/24 History vaginal cream beektv-hvknhity-xjehqse cap PO 09/30/24 History 24,000-76,000-120,000 unit capsule,delayed rel (Creon) mirabegron 25 mg tablet,extended 50 mg PO DAILY 09/30/24 09/30/24 History release 24 hr nitroglycerin 0.4 mg sublingual mg 09/30/24 History tablet nystatin 100,000 unit/gram topical topical 09/30/24 History powder (Nystop) Allergies Allergy/AdvReac Type Severity Reaction Status Date / Time latex Allergy Severe Anaphylaxis Verified 01/25/24 16:00 Penicillins Allergy Intermediate Hives Verified 01/25/24 16:00 Sulfa (Sulfonamide Allergy Intermediate Verified 01/25/24 16:00 Antibiotics) adhesive tape AdvReac Verified 01/25/24 16:00 Exam Constitutional Vital Signs, click to edit/add: Last Vital Signs Temp 97.8 F 09/30/24 17:08 Pulse 75 09/30/24 17:08 BP 149/90 H 09/30/24 17:08 Pulse Ox 100 09/30/24 17:08 O2 Del Method Room Air 09/30/24 17:08 Documenting provider has reviewed patient's vital signs: yes Common normals: no apparent distress Respiratory Common normals: normal respiratory effort Cardio Common normals: no JVD and regular rate GI Common normals: Normal to inspection, nondistended, normoactive bowel sounds present and soft to palpation; tender (Diffuse tenderness in upper abdomen, no rebound) Results Labs Labs: Short CBC 09/30/24 Range/Units 17:24 WBC 6.7 (4.0-11.0) 10^3/uL Hgb 15.4 (12.0-16.0) g/dL Hct 46.4 (36.0-48.0) % Plt Count 235 (150-450) 10^3/uL Assessment and Plan Assessment and Plan (1) Abdominal pain: (2) Acute pancreatitis: (3) Acute abdomen: (4) Hyperlipidemia: (5) History of prediabetes: (6) Hypertension: Plan Admission findings: Uncontrolled high blood pressure, elevated LFTs, elevated amylase and lipase with lipase over 700, patient admitted for n.p.o. and IV antibiotics, history of complicated acute pancreatitis in the past requiring long-term hospitalization Acute pancreatitis-uncertain etiology she had for this recurrently. She has a h istory of sepsis in the past, placed patient on IV antibiotics serial labs, n.p.o. Uncontrolled hypertension-likely secondary to pain-monitor Hyperlipidemia is a possibility for why she gets the pancreatitis but has been controlled in the past and still has pancreatitis Admission status: Patient with a history of pancreatitis recurrent, typical hospitalization is 2 to 3 days, she has had sepsis in the past requiring lengthy hospitalization, medically necessary treatment will span 2 midnights. Inpatient status.
[2024-09-30 18:06] LABS: Alanine Aminotransferase 51 U/L (14-59); Albumin Globulin Ratio 1.1; Albumin Level 3.8 g/dL (3.4-5.0); Alkaline Phosphatase 114 U/L (46-116); Amylase 234 U/L (25-115); Anion Gap 10.6; Aspartate Amino Transferase 29 U/L (15-37); BUN Creatinine Ratio 33.8; Bilirubin Direct 0.1 mg/dL (0.0-0.2); Bilirubin Total 0.3 mg/dL (0.2-1.0); Calcium 10.2 mg/dL (8.5-10.1); Carbon Dioxide 30.6 mmol/L (21.0-32.0); Chloride 103 mmol/L (98-107); Estimated GFR (African America >60 (>=60 mL/min/1.73m^2); Estimated GFR (Non-African Ame >60 (>=60 mL/min/1.73m^2); Globulin 3.5 g/dL; Glucose 110 mg/dL (74-106); Potassium 4.2 mmol/L (3.5-5.1); Sodium 140 mmol/L (136-145); Total Protein 7.3 g/dL (6.4-8.2)
[2024-09-30 18:24] LABS: INR 1.02; Partial Thromboplastin Time 30.2 sec (22.3-36.2); Prothrombin Time 10.8 sec (9.0-11.6)
[2024-09-30 18:25] LABS: Chol HDL Ratio 3.6; Cholesterol 219 mg/dL (<=200); HDL Cholesterol 61 mg/dL (40-60); Magnesium 2.3 mg/dL (1.8-2.4); Triglycerides 95 mg/dL (<=150)
--- OUTSIDE RECORDS SUMMARY | 2024-09-30 19:42 | XMS_ITS | CCD ---
Author Organization [facility] Care Team Providers Care Chopped Strand Operator Name Role Phone UNKNOWN, PROVIDER Unavailable Unavailable ASHLEY GRIGSBY Unavailable Unavailable UNKNOWN, PROVIDER Unavailable Unavailable ASHLEY GRIGSBY Unavailable Unavailable Ashley Grigsby Primary Care Provider [phone] Ashley Grigsby Unavailable Unavailable Unavailable Ashley Grigsby MD Primary Care Provider [phone] Unavailable Unavailable Ashley Grigsby Primary Care [...] Unavailable MD Ashley Grigsby Primary Care Provider [phone] MD Evert Bruno Attending Provider [phone] Evert Bruno Unavailable MD Ashley Grigsby Primary Care Provider [phone] MD Evert Bruno Attending Provider Ashley Grigsby MD Primary Care Provider [phone] GABY PHILLIPS Admitting Unavail able GABY PHILLIPS Attending Unavail able SEB ASHLEY Tyree Primary Care Unavailable SEBASHLEY Tyree Primary Care Unavailable Ashley Grigsby MD Primary Care Provider [phone] ALINA JAVIER Attending Unavailable STEPHANIE BERGER Attending Unavailable SEB ASHLEY Tyree Referring Unavailable HOYASHLEY M Primary Care Unavailable ALASTAL, YASEEN Attending Unavailable HOY, ASHLEY M Referring Unavailable HOY, ASHLEY M Primary Care Unavailable ALASTAL, YASEEN S Admitting Unavailable ALASTAL, YASEEN S Attending Unavailable SEB ASHLEY M Primary Care Unavailable MAGO MONAE Attending Unavailable ASHLYE GRIGSBY M Primary Care Unavailable ALASTAL, YASEEN S Attending Unavailable ALASTAL, YASEEN S Referring Unavailable ASHLEY GRIGSBY M Primary Care Unavailable BARRY MARTINO Attending Unavailab BARRY Rosa Attending Unavailab BARRY Rosa Attending Unavailab Ashley Ruiz MD Primary Care Provider [phone] Ari STRAUSS, Lynnette Guzman Emergency Provider [phone] Donis Arroyo DO Admit Provider Donis Arroyo [...] Allergy Other (See Comments), Shortness of breath [place], [place] (20 sources) Latex; Translations: [LATEX] Propensity to adverse reactions to drug Anaphylaxis, Shortness Of Breath, Anaphylaxis (disorder) [place], [place] (15 sources) Penicillins; Translations: [penicillins] Propensity to adverse reactions to drug Hives, Anaphylaxis (disorder) [place], [place] (3 sources) rosuvastatin Drug Allergy 019 [place], [place] (20 sources) Sulfamethoxazole / Trimethoprim; Translations: [Bactrim TABS] Drug Allergy 019 [place], [place] (11 sources) natural latex rubber Allergy to substance (finding) Shortness of breath [facility] [employer] [address] DO Work Phone: (11 sources) Penicillins; Translations: [Penicillins] Allergy to drug (finding) Rash [facility] [employer] 250 DO Work Phone: (18 sources) rosuvastatin; Translations: [Crestor TABS] Drug Allergy 023 Elevated liver enzymes level (finding), Other [facility] (16 sources) Sulfonamides (Antibiotic); Translations: [Sulfa Drugs] Allergy to drug (finding) [facility] (13 sources) levoFLOXacin; Translations: [levofloxacin] Drug Allergy 017 Other (See Comments), Candidiasis (disorder) [facility] [employer] Phone: (4 sources) Phenazopyridine; Translations: [PHENAZOPYRIDINE HCL] Drug Allergy 006 [facility] Work Phone: (3 sources) Simvastatin; Translations: [SIMVASTATIN] Drug Allergy 006 [facility] Work Phone: (2 sources) Sulfonamides (Antibiotic) Propensity to adverse reactions to drug 022 Other (See Comments) [employer] (8 sources) Tobramycin; Translations: [tobramycin] Drug Allergy 023 Eruption of skin (disorder) [facility] (1 source) Baclofen Drug Allergy [facility] Repository (1 source) Latex Drug allergy (disorder) [facility] Repository (5 sources) levoFLOXacin; Translations: [Levaquin] Drug Allergy thrush [facility] Repository (1 source) Penicillins Drug allergy (disorder) [facility] Rep[facility] (1 source) rosuvastatin Drug Allergy [facility] Repository (1 source) Sulfonamides (Antibiotic) Drug allergy (disorder) [facility] Rep[facility] (10 sources) rosuvastatin; Translations: [ROSUVASTATIN] Drug Allergy 017 Gastrointestinal Upset [facility] (5 sources) Sulfamethoxazole; Translations: [sulfamethoxazole] Drug Allergy 023 Hives, Hives, ([place]) 08/08/2011 [facility] (7 sources) Trimethoprim; Translations: [TRIMETHOPRIM] Drug Allergy 023 Hives, Hives, ([place]) 08/08/2011 [facility] (6 sources) Fenofibrate; Translations: [FENOFIBRATE] Drug Allergy 009 ([place]) 08/08/2011 [facility] (3 sources) Penicillin Drug Allergy ([place]) 08/08/2011 [employer] Other (6 sources) Substance with sulfonamide structure and antibacterial mechanism of action (substance) Drug allergy 023 Shortness of breath [employer] Other (4 sources) Penicillins Propensity to adverse reactions to drug Hives, Rash [facility] (1 source) Tobramycin Drug Allergy 023 Rash [facility] (3 sources) Fenofibrate; Translations: [FENOFIBRATE MICRONIZED] Drug Allergy 009 [facility] Repository (6 sources) Sulfonamides (Antibiotic); Translations: [SULFA (SULFONAMIDE ANTIBIOTICS)] Propensity to adverse reactions to drug (disorder) Unknown Reaction [facility] Repository (1 source) fluvastatin; Translations: [FLUVASTATIN] Drug Allergy [facility] Repository (1 source) natural latex rubber; Translations: [LATEX, NATURAL RUBBER] Propensity to adverse reactions to drug (disorder) [facility] Repository (1 source) Phenazopyridine; Translations: [PHENAZOPYRIDINE] Drug Allergy [facility] Repository (1 source) Baclofen Drug Allergy [facility] Repository (1 source) Fenofibrate Drug Allergy [facility] Rep[facility] (1 source) Latex Drug allergy (disorder) [facility] Rep[facility] (1 source) levoFLOXacin Drug Allergy [facility] Repository (1 source) Penicillins Drug allergy (disorder) [facility] Repository Medications Current Medications Medication Drug [...] Atherosclerosis of coronary artery bypass graft of [place] heart without angina pectoris , History of [...] Active Start: 11-01-2022 take 4 tablets by [facility] once daily Citalopram 10 mg tablet Active [...] Discontinued (Dose adjustment) take 2 tablets by [facility] once daily citalopram (CELEXA) 10 MG tablet Take 2 tablets by mouth daily 0 Active clopidogrel 75 mg oral tablet (2 sources) P2Y12 Platelet Inhibitor Start: 09-05-2024 End: 09-05-2025 take 1 tablet by mouth once daily clopidogrel (Plavix) 75 mg tablet Indications: Atherosclerosis of coronary artery bypass graft of [place] heart without angina pectoris , S/P PTCA [...] mouth two times weekly Vitamin D (Ergocalciferol) 86945 UNIT 1 capsule Orally TWICE a Week [...] 3 weeks, then 3x per week thereafter, [id number], 160, cm, 04/10/24 15:13:00 EDT, Height/Length Dosing, [...] Start: 04-30-2020 fluticasone 0. 05 mg/inh Nasal Zenia Refill(s) 0 Start Date: 04/30/20 Status: Ordered fluticasone 0.05 mg/inh Nasal [place] (3 sources) Start: 04-30-2020 fluticasone 0.05 mg/inh Nasal Zenia Refill(s) 0 Start Date: 04/30/20 Status: Ordered [...] day(s), # 45 tab(s), Refills(s) 3, Pharmacy: [facility], 160, cm, 06/02/22 8:29:00 EDT, Height/Length [...] # 90 tab(s), Refills(s) 3, Pharmacy: [facility], 160, cm, 05/27/21 8:19:00 EDT, Height/Length [...] day(s), # 30 tab(s), Refills(s) 11, Pharmacy: [id number], 160, cm, 04/10/24 15:13:00 EDT, Height/Length Dosing, [...] mouth 2 times a day. 0 Active Rclsxlxagxqt-Cpb-Seas-Fa-Vit K (Bariatric Multivitamins) 45 mg iron- 800 mcg-120 mcg Capsule (4 sources) Start: 11-01-2022 take 1 capsule by mouth twice daily Rewwmcthmjho-Pcw-Xgkf-Fa-Vit K (Bariatric Multivitamins) 45 mg iron- 800 mcg-120 mcg Capsule Active 1 CAP PO Twice daily November 01, 2022 1:00am Start: 11-01-2022 take 1 capsule by [facility] twice daily Lxtbzitkcrrd-Mxo-Uvkd-Fa-Vit K (Bariatri c Multivitamins) 45 mg iron- [...] tablet Indications: Atherosclerosis of coronary artery of [place] heart without angina pectoris, unspecified vessel or [...] needed 05/05/2020 Active omega-3 acid ethyl esters (correction) 1000 mg oral capsule (3 sources) take [...] April 21, 2018 11:01pm polyethylene glycol 3350 500694 mg / potassium chloride 2970 mg / sodium bicarbonate 6740 mg / sodium chloride 5860 mg / sodium sulfate 34042 mg powder for oral solution (3 sources) [...] # 180 cap(s), Refills(s) 3, Pharmacy: [facility], 160, cm, 05/27/21 8:19:00 EDT, Height/Length Dosing, 61, kg, 05/27/21 8:19:00 EDT, Weight Dosing Start Date: 03/14/22 Stop Date: 03/09/23 Status: Ordered Start: 04-17-2018 take 1 capsule by [facility] once daily tamsulosin (Flomax) 0.4 mg 24 [...] 01, 2022 12:00am take 1 tablet by [facility] every twenty-four hours traMADol HCl 50 MG 1 tablet as needed Orally Once a day Active ubidecarenone 200 mg oral capsule (3 sources) take 1 capsule by [facility] every twenty-four hours Coenzyme Q-10 200 MG 1 capsule with a meal Orally Once a day for 30 day(s) Active vibegron 75 MG Oral Tablet [Gemtesa] (1 source) Start: 04-10-2024 End: 04-05-2025 take 1 tablet by mouth once daily Gemtesa 75 mg oral tablet 75 mg = 1 tab(s), Oral, Daily, X 30 day(s), # 30 tab(s), Refills(s) 11, Pharmacy: [facility] #[id number], 160, cm, 04/10/24 15:13:00 EDT, Height/Length Dosing, [...] a day for 30 day(s) Active vitamins A,C,H-ckje-htftsf (1 source) Start: 08-19-2024 vitamins A,C,O-bqod-cdolmu Active PO August 19, 2024 12:00am Zyrtec [...] Start: 04-17-2018 take 2 tablets by mo [facility] every four hours as needed for pain Oxycodone-Acetaminophen (Percocet) 5-325 mg tablet Active 2 TAB PO Q4H as needed for pain April 17, 2018 ascorbic acid 226 mg / beta carotene 93071 unt / cuprous oxide 0.8 mg / [...] / neomycin 3.5 mg/ml / polymyxin b 96105 unt/ml ophthalmic suspension (3 sources) Aminoglycoside Antibacterial, Polymyxin-class Antibacterial, Corticosteroid Start: 06-13-2021 take 2 drop(s) into the eye(s) four times daily Neomycin-Polymyxin- HC 3.5-60705-4 Ophthalmic Suspension instill 2 drops INTO AFFECTED [...] sources) Coronary atherosclerosis; Translations: [Coronary atherosclerosis of [place] coronary artery] Onset: 2 Chronic Coronary atherosclerosis [...] 4 08-18-2024 Episodic Other aftercare (1 source) intermediate (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; Translations: [USP CURRENT USE OF ASPIRIN] Onset: 3 Episodic Other aftercare (1 source) Other bed bug exterminator (current) drug therapy; Translations: [OTH MACHINE FANCY STITCHER CURRENT DRUG THERAPY] Onset: 3 Episodic Other [...] Unclassified (1 source) Athscl heart disease of [place] coronary artery w/o ang pctrs / I25.10(ICD-9) [...] lead ECGon 08-22-2024 ECG 12 lead ECG [facility] Main [place] [address] [place] [address] Electrocardiograph Report Signed Patient: Jose Alberto Saleem MR#: [id number] 571 : 1965 Acct:[id number] Age/Sex: 59 / F ADM Date: 08/20/24 Loc: Room: [address] [place] [address] Type: DIS IN Attending Dr: Kaiser Quijano [...] abnormality Abnormal ECG Confirmed by Bella Stein ([id number]) on 08/22/2024 11:33:07 PM Referred By: Bella Stein Electronically Signed By: Bella Stein Transcribed By: MUS Signed By Bella Stein MD 4 2333 Normal [facility] Troponin I High Sensitivityo n 08-22-2024 Troponin I High Sensitivity 1211.6 pg/mL Off scale high 0.0-15.0 [facility] Comment on above: Result Comment: Crit ical Result : Called to and read back by: ROB MCDONALD at: 08/22/2024 06:38:37 by:RAMONA PERFORMED BY: [place] [address] PATHOLOGIST PLASTIC JOINT MAKER JANA OLMEDO M.D. Performed By: #### H S TROP ####[facility] [id number] [place] [id number] [facility] Blood Urea Nitrogenon 2023 Urea nitrogen [Mass/Vol] 14 mg/dL Normal 7-25 [facility] Comment on above: Performed By: #### C REAT, BUN, PP, CBC, LYTES ####[facility] [place] [id number] [facility] Coagulation Profileon 2023 aPTT Coag (Bld) [Time] 35.9 s Normal 25.1-36.5 [facility] Comment on above: Result Comment: A he matocrit value greater than 55% may lead to inaccurate results in coagulation testing. Patients having hematocrit values >55% require a special collection tube for coagulation studies. Please contact the laboratory at [phone] for redraw instructions. PERFORMED BY: [address] RADAMESReneFawad [place] [id number] PATHOLOGIST PLASTIC JOINT MAKER JANA OLMEDO M.D. Performed By: #### C REAT, BUN, PP, CBC, LYTES ####[place] [address] [place] [id number] [facility] INR Coag (PPP) [Relative time] 1.1 {INR} Normal [facility] Comment on above: Result Comment: [...] #### C REAT, BUN, PP, CBC, LYTES ####[place] [address] [place] [address] [facility] PT Coag (PPP) [Time] 12.2 s Normal 9.0-12.9 [facility] Comment on above: Result Comment: A he matocrit value greater than 55% may lead to inaccurate results in coagulation testing. Patients having hematocrit values >55% require a special collection tube for coagulation studies. Please contact the laboratory at [phone] for redraw instructions. Performed By: #### C REAT, BUN, PP, CBC, LYTES ####[address] Complete Blood Count Auto Di ffon 08-21-2024 Basophils (Bld) [#/Vol] 0.0 10*3/uL Normal 0.0-0.2 [facility] Comment on above: Result Comment: PERF ORMED BY: [facility] [address] [place] [address] PATHOLOGIST PLASTIC JOINT MAKER JANA OLMEDO M.D. Performed By: #### C REAT, BUN, PP, CBC, LYTES ####[address] Basophils/100 WBC (Bld) 0.3 % Normal . [facility] Comment on above: Performed By: #### C REAT, BUN, PP, CBC, LYTES ####[address] Eosinophils (Bld) [#/Vol] 0.2 10*3/uL Normal 0.0-0.45 [facility] Comment on above: Performed By: #### C REAT, BUN, PP, CBC, LYTES ####[address] Eosinophils/100 WBC (Bld) 3.9 % Normal . [facility] Comment on above: Performed By: #### C REAT, BUN, PP, CBC, LYTES ####[address] Erythrocyte distribution width (RBC) [Ratio] 12.7 % Normal 11.9-15.3 [facility] Comment on above: Performed By: #### C REAT, BUN, PP, CBC, LYTES ####[address] Hematocrit (Bld) [Volume fraction] 42.5 % Normal 34.0-46.4 [facility] Comment on above: Performed By: #### C REAT, BUN, PP, CBC, LYTES ####[address] [place] [address] [place] Hemoglobin (Bld) [Mass/Vol] 14.6 g/dL Normal 11.8-15.4 [facility] Comment on above: Performed By: #### C REAT, BUN, PP, CBC, LYTES ####[address] Lymphocytes (Bld) [#/Vol] 1.7 10*3/uL Normal 1.00-4.8 [facility] Comment on above: Performed By: #### C REAT, BUN, PP, CBC, LYTES ####[address] Lymphocytes/100 WBC (Bld) 35.0 % Normal . [facility] Comment on above: Performed By: #### C REAT, BUN, PP, CBC, LYTES ####[address] MCH (RBC) [Entitic mass] 30.8 pg Normal 24.7-34.3 [facility] Comment on above: Performed By: #### C REAT, BUN, PP, CBC, LYTES ####[address] MCV (RBC) [Entitic vol] 89.8 fL Normal 80-100 [facility] Comment on above: Performed By: #### C REAT, BUN, PP, CBC, LYTES ####[address] Mean Corpuscular HGB Conc 34.3 g/dL Normal 32.0-35.0 [facility] Comment on above: Performed By: #### C REAT, BUN, PP, CBC, LYTES ####[address] Monocytes (Bld) [#/Vol] 0.5 10*3/uL Normal 0.0-0.8 [facility] Comment on above: Performed By: #### C REAT, BUN, PP, CBC, LYTES ####[address] [place] [address] [place] Monocytes/100 WBC (Bld) 10.9 % Normal . [facility] Comment on above: Performed By: #### C REAT, BUN, PP, CBC, LYTES ####[address] Neutrophils (Bld) [#/Vol] 2.5 10*3/uL Normal 1.8-7.7 [facility] Comment on above: Performed By: #### C REAT, BUN, PP, CBC, LYTES ####[address] Neutrophils/100 WBC (Bld) 49.9 % Normal . [facility] Comment on above: Performed By: #### C REAT, BUN, PP, CBC, LYTES ####[address] NRBC% 0.1 /100{WBC} Normal 0-0.5 [facility] Comment on above: Performed By: #### C REAT, BUN, PP, CBC, LYTES ####[address] Platelet mean volume (Bld) [Entitic vol] 7.7 fL Normal 6.3-10.7 [facility] Comment on above: Performed By: #### C REAT, BUN, PP, CBC, LYTES ####[address] Platelets (Bld) [#/Vol] 172 10*3/uL Normal 150-450 [facility] Comment on above: Performed By: #### C REAT, BUN, PP, CBC, LYTES ####[address] RBC (Bld) [#/Vol] 4.73 10*6/uL Normal 3.60-5.00 [facility] Comment on above: Performed By: #### C REAT, BUN, PP, CBC, LYTES ####[address] WBC (Bld) [#/Vol] 4.9 10*3/uL Normal 3.8-11.6 [facility] Comment on above: Performed By: #### C REAT, BUN, PP, CBC, LYTES ####[place] [address] [place] [id number] [facility] Creatinineon 08-21-2024 Creatinine [Mass/Vol] 0.61 mg/dL Normal 0.60-1.20 [facility] Comment on above: Performed By: #### C REAT, BUN, PP, CBC, LYTES ####[place] [address] [place] [id number] [facility] Creatinine Clr Calc Pharmacy 97.73 Normal [facility] Comment on above: Result Comment: PERF ORMED BY: [place] [address] PATHOLOGIST PLASTIC JOINT MAKER JANA OLMEDO M.D. Performed By: #### C REAT, BUN, PP, CBC, LYTES ####[place] [address] GFR/1.73 sq M.predicted MDRD (S/P/Bld) [Vol rate/Area] mL/min/{1.73_m2} Normal [facility] Comment on above: Performed By: #### C REAT, BUN, PP, CBC, LYTES ####[place] [id number] [facility] ECG 12 lead ECGon 08-21-2024 ECG 12 lead ECG [facility] [place] [address] Electrocardiograph Report Signed Patient: Jose Alberto Saleem MR#: [id number] 571 : 1965 Acct:[id number] Age/Sex: 59 / F ADM Date: 08/20/24 Loc: 4 Room: [address] [place] [address] Type: DIS IN Attending Dr: Kaiser Quijano [...] abnormality Abnormal ECG Confirmed by Bella Stein ([id number]) on 08/22/2024 11:33:52 PM Referred By: Bella Stein Electronically Signed By: Bella Stein Transcribed By: MUS Signed By Bella Stein MD 4 2333 Normal [facility] Electrolyteson 08-21-2024 Anion gap [Moles/Vol] 11.0 mmol/L Normal 6.0-15.0 Th e [facility] Comment on above: Performed By: #### C REAT, BUN, PP, CBC, LYTES ####[address] Chloride [Moles/Vol] 105 mmol/L Normal 98-107 [facility] Comment on above: Performed By: #### C REAT, BUN, PP, CBC, LYTES ####[address] CO2 [Moles/Vol] 27.9 mmol/L Normal 21.0-31.0 The [facility] Comment on above: Performed By: #### C REAT, BUN, PP, CBC, LYTES ####[place] [id number] [facility] Potassium [Moles/Vol] 3.9 mmol/L Normal 3.5-5.1 [facility] Comment on above: Performed By: #### C REAT, BUN, PP, CBC, LYTES ####[place] [id number] [facility] Sodium [Moles/Vol] 140 mmol/L Normal 136-145 [facility] Comment on above: Performed By: #### C REAT, BUN, PP, CBC, LYTES ####[place] [id number] [facility] NM lia perf SPECT rest stron 08-20-2024 NM lia perf SPECT rest str [facility] Main [place] [id number] Nuclear Medicine Report Signed Patient: Jose Alberto Saleem MR#: [id number] 571 : 1965 Acct:[id number] Age/Sex: 59 / F ADM Date: 08/18/24 Loc: Room: [address] [place] [address] Type: ADM INOo Attending Dr: Chucky Dunn [...] Bella Stein M.D.08/20/2024 3:56 PM Dictation Location: [place] [address] Transcribed By: [facility] 08/20/24 1556 Dictated By: Bella Stein MD 08/20/24 1552 Signed By: 08/20/24 155 Normal [facility] A1C with Estimated Average G ajay 08-19-2024 Glucose [Mass/Vol] 117 mg/dL Normal [facility] Comment on above: Result Comment: PERF ORMED BY: [place] [address] PATHOLOGIST PLASTIC JOINT MAKER JANA OLMEDO M.D. Performed By: #### A 1C [facility] eA, HS TROP ####[facility] [id number] [place] [address] [facility] HbA1c (Bld) [Mass fraction] 5.7 % High 4.3-5.6 [facility] Comment on above: Result Comment: Incr eased risk for diabetes: 5.7 - 6.4 diabetes: >6.4 glycemic control for adults with diabetes: <7.0 Performed By: #### A 1C [facility] eA, HS TROP ####[facility] [id number] [place] [address] [facility] ECG 12 lead ECGon 08-19-2024 ECG 12 lead ECG [facility] [place] [place] [address] Electrocardiograph Report Signed Patient: Jose Alberto Saleem MR#: [id number] 571 : 1965 Acct:[id number] Age/Sex: 59 / F ADM Date: 08/18/24 Loc: Room: [address] [place] [address] Type: ADM INOo Attending Dr: Chucky Dunn [...] abnormality Abnormal ECG Confirmed by Bella Stein ([id number]) on 08/21/2024 12:00:39 AM Referred By: Bella Stein Electronically Signed By: Bella Stein Transcribed By: MUS Signed By Bella Stein MD 4 0000 Normal [facility] ECG 12 lead ECG [facility] [place] [place] [address] Electrocardiograph Report Signed Patient: Jose Alberto Saleem MR#: [id number] 571 : 1965 Acct:[id number] Age/Sex: 59 / F ADM Date: 08/18/24 Loc: 3T Room: [address] [place] [address] Type: ADM INOo Attending Dr: Chucky Dunn [...] rhythm Leftward axis Confirmed by Torsten Monreal ([id number]) on 08/20/2024 11:52:24 PM Referred By: Bella Stein Electronically Signed By: Torsten Monreal Transcribed By: MUS Signed By Torsten Monreal MD 08/20/24 2352 Normal [facility] Troponin I High Sensitivityo n 08-19-2024 Troponin I High Sensitivity 4.6 pg/mL Normal 0.0-15.0 [facility] [facility] Comment on above: Result Comment: PERF ORMED BY: [place] [address] PATHOLOGIST PLASTIC JOINT MAKER JANA OLMEDO M.D. Performed By: #### A 1C [facility], TROP ####[facility] [id number] X-ray reportOrdered By: Anna Wick on 08-19-2024 Study report [facility] [address] [place] [address] XRay Report Signed Patient: Jose Alberto Saleem MR#: [id number] : 1965 Acct:[id number] Age/Sex: 59 / F ADM Date: 4 Loc: 3T Room: [address] [place] [address] Type: ADM INOo Attending Dr: Donis Arroyo [...] Thelma Wick M.D.08/19/2024 12:10 AM Dictation Location: [place] [address] Transcribed By: [facility] 08/19/249 Dictated By: Thelma Wick MD 08/18/242210 Signed By: 08/19/249 [facility] Work Phone: Alanine aminotransferase [En zymatic activity/volume] in Serum or PlasmaOrdered By: Lynnette Chapman on 08-18-2024 ALT [Catalytic activity/Vol] Alanine aminotransferase [Enzymatic activity/volume] in Serum or Plasma 7-52 [facility] Albumin [Mass/volume] in Ser um or Plasma by Bromocresol green (BCG) dye binding methoOrdered By: Lynnette Chapman on 08-18-2024 Albumin BCG dye [Mass/Vol] Albumin [Mass/volume] in Serum or Plasma by Bromocresol green (BCG) dye binding metho 3.5-5.7 [facility] Alkaline phosphatase [Enzyma tic activity/volume] in Serum or PlasmaOrdered By: Lynnette Chapman on 08-18-2024 ALP [Catalytic activity/Vol] Alkaline phosphatase [Enzymatic activity/volume] in Serum or Plasma 34-104 [facility] Aspartate aminotransferase [ Enzymatic activity/volume] in Serum or PlasmaOrdered By: Lynnette Chapman on 08-18-2024 AST [Catalytic activity/Vol] Aspartate aminotransferase [Enzymatic activity/volume] in Serum or Plasma 13-39 [facility] B-Type Natriuretic Peptideon 08-18-2024 Natriuretic peptide B (Bld) [Mass/Vol] 31.0 pg/mL Normal 5-100 [facility] Comment on above: Result Comment: PERF ORMED BY: [place] [address] PATHOLOGIST PLASTIC JOINT MAKER JANA OLMEDO M.D. Performed By: #### H S TROP, LIPASE, PT, BMP, HEPATIC, CK, CBC, BNP ####[address] Basic Metabolic Panelon 08-01 Anion gap [Moles/Vol] 10.7 mmol/L Normal 6.0-15.0 e [facility] Comment on above: Performed By: #### H S TROP, LIPASE, PT, BMP, HEPATIC, CK, CBC, BNP #### [address] Performed By: #### H S TROP, LIPASE, PT, BMP, HEPATIC, CK, CBC, BNP ####[address] Calcium [Mass/Vol] 10.1 mg/dL Normal 8.6-10.3 [facility] Comment on above: Performed By: #### H S TROP, LIPASE, PT, BMP, HEPATIC, CK, CBC, BNP #### [address] Performed By: #### H S TROP, LIPASE, PT, BMP, HEPATIC, CK, CBC, BNP ####[address] Chloride [Moles/Vol] 102 mmol/L Normal 98-107 [facility] Comment on above: Performed By: #### H S TROP, LIPASE, PT, BMP, HEPATIC, CK, CBC, BNP #### [address] Performed By: #### H S TROP, LIPASE, PT, BMP, HEPATIC, CK, CBC, BNP ####[address] CO2 [Moles/Vol] 28.4 mmol/L Normal 21.0-31.0 [facility] Comment on above: Performed By: #### H S TROP, LIPASE, PT, BMP, HEPATIC, CK, CBC, BNP #### [address] Performed By: #### H S TROP, LIPASE, PT, BMP, HEPATIC, CK, CBC, BNP ####[address] Creatinine [Mass/Vol] 0.62 mg/dL Normal 0.60-1.20 [facility] Comment on above: Performed By: #### H S TROP, LIPASE, PT, BMP, HEPATIC, CK, CBC, BNP #### [address] Performed By: #### H S TROP, LIPASE, PT, BMP, HEPATIC, CK, CBC, BNP ####[address] Creatinine Clr Calc Pharmacy 95.72 Normal [facility] Comment on above: Result Comment: PERF ORMED BY: [place] [address] PATHOLOGIST PLASTIC JOINT MAKER JANA OLMEDO M.D. Performed By: #### H S TROP, LIPASE, PT, BMP, HEPATIC, CK, CBC, BNP #### [address] Performed By: #### H S TROP, LIPASE, PT, BMP, HEPATIC, CK, CBC, BNP ####[address] GFR/1.73 sq M.predicted MDRD (S/P/Bld) [Vol rate/Area] mL/min/{1.73_m2} Normal [facility] Comment on above: Performed By: #### H S TROP, LIPASE, PT, BMP, HEPATIC, CK, CBC, BNP #### [address] Performed By: #### H S TROP, LIPASE, PT, BMP, HEPATIC, CK, CBC, BNP ####[address] Glucose [Mass/Vol] 94 mg/dL Normal 70-100 [facility] Comment on above: Result Comment: [facility] Glucose Reference Range is dependent on time and content of last meal. Glucose of more than 200 mg/dL in a nonstressed, ambulatory subject supports the diagnosis of Diabetes Mellitus. ADA recommended reference range Performed By: #### H S TROP, LIPASE, PT, BMP, HEPATIC, CK, CBC, BNP #### [address] Performed By: #### H S TROP, LIPASE, PT, BMP, HEPATIC, CK, CBC, BNP ####[address] Potassium [Moles/Vol] 4.1 mmol/L Normal 3.5-5.1 [facility] Comment on above: Performed By: #### H S TROP, LIPASE, PT, BMP, HEPATIC, CK, CBC, BNP #### [address] Performed By: #### H S TROP, LIPASE, PT, BMP, HEPATIC, CK, CBC, BNP ####[address] Sodium [Moles/Vol] 137 mmol/L Normal 136-145 [facility] Comment on above: Performed By: #### H S TROP, LIPASE, PT, BMP, HEPATIC, CK, CBC, BNP #### [address] Performed By: #### H S TROP, LIPASE, PT, BMP, HEPATIC, CK, CBC, BNP ####[address] Urea nitrogen [Mass/Vol] 22 mg/dL Normal 7-25 [facility] Comment on above: Performed By: #### H S TROP, LIPASE, PT, BMP, HEPATIC, CK, CBC, BNP #### [address] Performed By: #### H S TROP, LIPASE, PT, BMP, HEPATIC, CK, CBC, BNP ####[facility] [id number] [place] [address] [facility] Basophils Auto (Bld) [#/Vol] Ordered By: Lynnette Chapman on 08-18-2024 Basophils (Bld) [#/Vol] Automated basophil count 0.0-0.2 [facility] Basophils/100 WBC Auto (Bld) Ordered By: Lynnette Chapman on 08-18-2024 Basophils/100 WBC (Bld) Automated basophil % . [facility] Bilirubin.direct [Mass/volum e] in Serum or PlasmaOrdered By: Lynnette Chapman on 08-18-2024 Bilirubin.direct [Mass/Vol] Bilirubin.direct [Mass/volume] in Serum or Plasma 0.03-0.18 [facility] Bilirubin.total [Mass/volume ] in Serum or PlasmaOrdered By: Lynnette Chapman on 08-18-2024 Bilirubin [Mass/Vol] Bilirubin.total [Mass/volume] in Serum or Plasma 0.3-1.0 [facility] Calcium [Mass/volume] in Ser um or PlasmaOrdered By: Lynnette Chapman on 08-18-2024 Calcium [Mass/Vol] Calcium [Mass/volume ] in Serum or Plasma 8.6-10.3 [facility] Carbon dioxide, total [Moles /volume] in Serum or PlasmaOrdered By: Lynnette Chapman on 08-18-2024 CO2 [Moles/Vol] Carbon dioxide, tota l [Moles/volume] in Serum or Plasma 21.0-31.0 [facility] Chloride [Moles/volume] in S nina or PlasmaOrdered By: Lynnette Chapman on 08-18-2024 Chloride [Moles/Vol] Chloride [Moles/vol ume] in Serum or Plasma 98-107 [facility] Complete Blood Count Auto Di ffon 08-18-2024 Basophils (Bld) [#/Vol] 0.0 10*3/uL Normal 0.0-0.2 [facility] Comment on above: Result Comment: PERF ORMED BY: [facility] [address] [place] [address] PATHOLOGIST PLASTIC JOINT MAKER JANA OLMEDO M.D. Performed By: #### H S TROP, LIPASE, PT, BMP, HEPATIC, CK, CBC, BNP #### [address] Basophils/100 WBC (Bld) 0.7 % Normal . [facility] Comment on above: Performed By: #### H S TROP, LIPASE, PT, BMP, HEPATIC, CK, CBC, BNP #### [address] Eosinophils (Bld) [#/Vol] 0.2 10*3/uL Normal 0.0-0.45 [facility] Comment on above: Performed By: #### H S TROP, LIPASE, PT, BMP, HEPATIC, CK, CBC, BNP #### [address] Eosinophils/100 WBC (Bld) 3.5 % Normal . [facility] Comment on above: Performed By: #### H S TROP, LIPASE, PT, BMP, HEPATIC, CK, CBC, BNP #### [address] Erythrocyte distribution width (RBC) [Ratio] 12.6 % Normal 11.9-15.3 [facility] Comment on above: Performed By: #### H S TROP, LIPASE, PT, BMP, HEPATIC, CK, CBC, BNP #### [address] Hematocrit (Bld) [Volume fraction] 43.7 % Normal 34.0-46.4 [facility] Comment on above: Performed By: #### H S TROP, LIPASE, PT, BMP, HEPATIC, CK, CBC, BNP #### [address] Hemoglobin (Bld) [Mass/Vol] 15.1 g/dL Normal 11.8-15.4 [facility] Comment on above: Performed By: #### H S TROP, LIPASE, PT, BMP, HEPATIC, CK, CBC, BNP #### [address] Lymphocytes (Bld) [#/Vol] 2.2 10*3/uL Normal 1.00-4.8 [facility] Comment on above: Performed By: #### H S TROP, LIPASE, PT, BMP, HEPATIC, CK, CBC, BNP #### [address] Lymphocytes/100 WBC (Bld) 36.5 % Normal . [facility] Comment on above: Performed By: #### H S TROP, LIPASE, PT, BMP, HEPATIC, CK, CBC, BNP #### [address] MCH (RBC) [Entitic mass] 30.7 pg Normal 24.7-34.3 [facility] Comment on above: Performed By: #### H S TROP, LIPASE, PT, BMP, HEPATIC, CK, CBC, BNP #### [address] MCV (RBC) [Entitic vol] 88.8 fL Normal 80-100 [facility] Comment on above: Performed By: #### H S TROP, LIPASE, PT, BMP, HEPATIC, CK, CBC, BNP #### [address] Mean Corpuscular HGB Conc 34.5 g/dL Normal 32.0-35.0 [facility] Comment on above: Performed By: #### H S TROP, LIPASE, PT, BMP, HEPATIC, CK, CBC, BNP #### [address] Monocytes (Bld) [#/Vol] 0.6 10*3/uL Normal 0.0-0.8 [facility] Comment on above: Performed By: #### H S TROP, LIPASE, PT, BMP, HEPATIC, CK, CBC, BNP #### [address] Monocytes/100 WBC (Bld) 16.97 % Normal 0.00-20.00 [facility] Comment on above: Performed By: #### H S TROP, LIPASE, PT, BMP, HEPATIC, CK, CBC, BNP #### [address] Monocytes/100 WBC (Bld) 10.5 % Normal . [facility] Comment on above: Performed By: #### H S TROP, LIPASE, PT, BMP, HEPATIC, CK, CBC, BNP #### [address] Neutrophils (Bld) [#/Vol] 3.0 10*3/uL Normal 1.8-7.7 [facility] Comment on above: Performed By: #### H S TROP, LIPASE, PT, BMP, HEPATIC, CK, CBC, BNP #### [address] Neutrophils/100 WBC (Bld) 48.8 % Normal . [facility] Comment on above: Performed By: #### H S TROP, LIPASE, PT, BMP, HEPATIC, CK, CBC, BNP #### [address] NRBC% 0.1 /100{WBC} Normal 0-0.5 [facility] Comment on above: Performed By: #### H S TROP, LIPASE, PT, BMP, HEPATIC, CK, CBC, BNP #### [address] Platelet mean volume (Bld) [Entitic vol] 7.9 fL Normal 6.3-10.7 [facility] Comment on above: Performed By: #### H S TROP, LIPASE, PT, BMP, HEPATIC, CK, CBC, BNP #### [address] Platelets (Bld) [#/Vol] 204 10*3/uL Normal 150-450 [facility] Comment on above: Performed By: #### H S TROP, LIPASE, PT, BMP, HEPATIC, CK, CBC, BNP #### [address] RBC (Bld) [#/Vol] 4.92 10*6/uL Normal 3.60-5.00 [facility] Comment on above: Performed By: #### H S TROP, LIPASE, PT, BMP, HEPATIC, CK, CBC, BNP #### [facility] [address] WBC (Bld) [#/Vol] 6.1 10*3/uL Normal 3.8-11.6 [facility] Comment on above: Performed By: #### H S TROP, LIPASE, PT, BMP, HEPATIC, CK, CBC, BNP #### [facility] [address] Creatine Kinaseon 08-18-2024 CK [Catalytic activity/Vol] 53 U/L Normal 30-223 [facility] Comment on above: Performed By: #### H S TROP, LIPASE, PT, BMP, HEPATIC, CK, CBC, BNP ####[facility] [id number] Creatine kinase [Enzymatic a ctivity/volume] in Serum or PlasmaOrdered By: Lynnette Chapman on 08-18-2024 CK [Catalytic activity/Vol] Creatine kinase [Enzymatic activity/volume] in Serum or Plasma 30-223 [facility] Creatinine [Mass/volume] in Serum or PlasmaOrdered By: Lynnette Chapman on 08-18-2024 Creatinine [Mass/Vol] Creatinine [Mass/v olume] in Serum or Plasma 0.60-1.20 [facility] ECG 12 lead ECGon 08-18-2024 ECG 12 lead ECG [facility] [address] [place] [address] Electrocardiograph Report Signed Patient: Jose Alberto Saleem MR#: [id number] : 1965 Acct:[id number] Age/Sex: 59 / F ADM Date: 08/18/24 Loc: ER Room: Type: [facility] ER Attending Dr: Ordering Provider: Lynnette Chapman [...] wave abnormality Confirmed by Lynnette Chapman MD ([id number]) on 08/18/2024 11:22:40 PM Referred By: Electronically Signed By: Lynnette Chapman MD Transcribed By: MUS Signed By Lynnette Chapman MD 08/01 05/24 2322 Normal [facility] Eosinophils Auto (Bld) [#/Vo l]Ordered By: Lynnette Chapman on 08-18-2024 Eosinophils (Bld) [#/Vol] Automated eosinophil count 0.0-0.45 [facility] Eosinophils/100 WBC Auto (Bl d)Ordered By: Lynnette Chapman on 08-18-2024 Eosinophils/100 WBC (Bld) Automated eosinophil % . [facility] Erythrocyte distribution wid th Auto (RBC) [Ratio]Ordered By: Lynnette Chapman on 08-18-2024 Erythrocyte distribution width (RBC) [Ratio] Erythrocyte distribution width [Ratio] by Automated count 11.9-15.3 [facility] Globulin Calc (S) [Mass/Vol] Ordered By: Lynnette Chapman on 08-18-2024 Globulin (S) [Mass/Vol] Serum globulin measurement by calculation (mass/volume) [facility] Glucose [Mass/volume] in Ser um or PlasmaOrdered By: Lynnette Chapman on 08-18-2024 Glucose [Mass/Vol] Glucose [Mass/volume ] in Serum or Plasma 70-100 [facility] Comment on above: ADA recommended refe rence rangeRandom Glucose Reference Range is dependent on time and content of last meal. Glucose of more than 200 mg/dL in a nonstressed, ambulatory subject supports the diagnosis of Diabetes Mellitus. Hematocrit Auto (Bld) [Volum e fraction]Ordered By: Lynnette Chapman on 08-18-2024 Hematocrit (Bld) [Volume fraction] Hematocrit [Volume Fraction] of Blood by Automated count 34.0-46.4 [facility] Hemoglobin [Mass/volume] in BloodOrdered By: Lynnette Chapman on 08-18-2024 Hemoglobin (Bld) [Mass/Vol] Hemoglobin [Mass/volume] in Blood 11.8-15.4 [facility] Hepatic Panelon 08-18-2024 Albumin [Mass/Vol] 4.3 g/dL Normal 3.5-5.7 [facility] Comment on above: Performed By: #### H S TROP, LIPASE, PT, BMP, HEPATIC, CK, CBC, BNP ####[address] Albumin/Globulin [Mass ratio] 1.7 {ratio} Normal [facility] Comment on above: Performed By: #### H S TROP, LIPASE, PT, BMP, HEPATIC, CK, CBC, BNP ####[address] ALP [Catalytic activity/Vol] 89 U/L Normal 34-104 [facility] Comment on above: Performed By: #### H S TROP, LIPASE, PT, BMP, HEPATIC, CK, CBC, BNP ####[address] ALT [Catalytic activity/Vol] 42 U/L Normal 7-52 [facility] Comment on above: Performed By: #### H S TROP, LIPASE, PT, BMP, HEPATIC, CK, CBC, BNP ####[address] AST [Catalytic activity/Vol] 31 U/L Normal 13-39 [facility] Comment on above: Performed By: #### H S TROP, LIPASE, PT, BMP, HEPATIC, CK, CBC, BNP ####[address] Bilirubin [Mass/Vol] 0.4 mg/dL Normal 0.3-1.0 [facility] Comment on above: Performed By: #### H S TROP, LIPASE, PT, BMP, HEPATIC, CK, CBC, BNP ####[address] Bilirubin,Indirect 0.3 mg/dL Normal [facility] Comment on above: Performed By: #### H S TROP, LIPASE, PT, BMP, HEPATIC, CK, CBC, BNP ####[address] Bilirubin.indirect [Mass/Vol] 0.10 mg/dL Normal 0.03-0.18 [facility] Comment on above: Performed By: #### H S TROP, LIPASE, PT, BMP, HEPATIC, CK, CBC, BNP ####[facility] [place] [id number] [facility] Globulin (S) [Mass/Vol] 2.6 g/dL Normal [facility] Comment on above: Performed By: #### H S TROP, LIPASE, PT, BMP, HEPATIC, CK, CBC, BNP ####[place] [address] [place] [id number] [facility] Protein [Mass/Vol] 6.9 g/dL Normal 6.4-8.9 [facility] Comment on above: Performed By: #### H S TROP, LIPASE, PT, BMP, HEPATIC, CK, CBC, BNP ####[place] [address] [place] [id number] [facility] INR in Platelet poor plasma by Coagulation assayOrdered By: Lynnette Chapman on 08-18-2024 INR Coag (PPP) [Relative time] INR in Platelet poor plasma by Coagulation assay [facility] Comment on above: INR Therapeutic Rang [...] erythrocytes in Blood by Automated coun 3.8-11.6 [facility] Lipaseon 08-18-2024 Lipase [Catalytic activity/Vol] 110.0 U/L High 11.0-82.0 [facility] Comment on above: Result Comment: PERF ORMED BY: [facility] [address] [place] [place] [id number] PATHOLOGIST PLASTIC JOINT MAKER JANA OLMEDO M.D. Performed By: #### H S TROP, LIPASE, PT, BMP, HEPATIC, CK, CBC, BNP ####[facility] [id number] [place] [id number] [facility] Lipase [Enzymatic activity/v olume] in Serum or PlasmaOrdered By: Lynnette Chapman on 08-18-2024 Lipase [Catalytic activity/Vol] Lipase [Enzymatic activity/volume] in Serum or Plasma High 11.0-82.0 [facility] Lymphocytes Auto (Bld) [#/Vo l]Ordered By: Lynnette Chapman on 08-18-2024 Lymphocytes (Bld) [#/Vol] Lymphocytes [#/volume] in Blood by Automated count 1.00-4.8 [facility] Lymphocytes/100 WBC Auto (Bl d)Ordered By: Lynnette Chapman on 08-18-2024 Lymphocytes/100 WBC (Bld) Lymphocytes/100 leukocytes in Blood by Automated count . [facility] MCH Auto (RBC) [Entitic mass ]Ordered By: Lynnette Chapman on 08-18-2024 MCH (RBC) [Entitic mass] MCH [Entitic mass] by Automated count 24.7-34.3 [facility] MCHC Auto (RBC) [Mass/Vol]Or dered By: Lynnette Chapman on 08-18-2024 MCHC (RBC) [Mass/Vol] MCHC [Mass/volume] by Automated count 32.0-35.0 [facility] MCV Auto (RBC) [Entitic vol] Ordered By: Lynnette Chapman on 08-18-2024 MCV (RBC) [Entitic vol] MCV [Entitic volume] by Automated count 80-100 [facility] Monocyte distribution width [Entitic volume] in Blood by AutomatedOrdered By: Lynnette Chapman on 08-18-2024 Monocyte distribution width Auto (Bld) [Entitic vol] Monocyte distribution width [Entitic volume] in Blood by Automated 0.00-20.00 [facility] Monocytes Auto (Bld) [#/Vol] Ordered By: Lynnette Chapman on 08-18-2024 Monocytes (Bld) [#/Vol] Automated blood monocyte count 0.0-0.8 [facility] Monocytes/100 WBC Auto (Bld) Ordered By: Lynnette Chapman on 08-18-2024 Monocytes/100 WBC (Bld) Automated monocyte % . [facility] Natriuretic peptide B [Mass/ Vol]Ordered By: Lynnette Chapman on 08-18-2024 Natriuretic peptide B (Bld) [Mass/Vol] BNP ser/plas 5-100 [facility] Neutrophils Auto (Bld) [#/Vo l]Ordered By: Lynnette Chapman on 08-18-2024 Neutrophils (Bld) [#/Vol] Neutrophils [#/volume] in Blood by Automated count 1.8-7.7 [facility] Neutrophils/100 WBC Auto (Bl d)Ordered By: Lynnette Chapman on 08-18-2024 Neutrophils/100 WBC (Bld) Automated neutrophil % . [facility] No Panel InformationOrdered By: Lynnette Chapman on 08-18-2024 Estimated GFR (CKD-EPI) > 60.0 mL/Min [facility] Creatinine Clearance (Chem 95.72 [facility] Nucleated erythrocytes [Pres ence] in Blood by Automated countOrdered By: Lynnette Chapman on 08-18-2024 Nucleated RBC Auto Ql (Bld) Nucleated erythrocytes [Presence] in Blood by Automated count 0-0.5 [facility] Platelet mean volume Auto (B ld) [Entitic vol]Ordered By: Lynnette Chapman on 08-18-2024 Platelet mean volume (Bld) [Entitic vol] Platelet mean volume [Entitic volume] in Blood by Automated count 6.3-10.7 [facility] Platelets Auto (Bld) [#/Vol] Ordered By: Lynnette Chapman on 08-18-2024 Platelets (Bld) [#/Vol] Platelets [#/volume] in Blood by Automated count 150-450 [facility] Potassium [Moles/volume] in Serum or PlasmaOrdered By: Lynnette Chapman on 08-18-2024 Potassium [Moles/Vol] Potassium [Moles/v olume] in Serum or Plasma 3.5-5.1 [facility] Protein [Mass/volume] in Ser um or PlasmaOrdered By: Lynnette Chapman on 08-18-2024 Protein [Mass/Vol] Protein [Mass/volume ] in Serum or Plasma 6.4-8.9 [facility] Prothrombin Time INRon 11-18 -2024 INR Coag (PPP) [Relative time] 1.0 {INR} Normal [facility] Comment on above: Result Comment: [...] heart valves: 3 - 4.5 PERFORMED BY: [place] [address] PATHOLOGIST PLASTIC [employer] MAKER JANA OLMEDO M.D. Performed By: #### H S TROP, LIPASE, PT, BMP, HEPATIC, CK, CBC, BNP #### [facility] [address] [place] [address] PT Coag (PPP) [Time] 11.7 s Normal 9.0-12.9 [facility] Comment on above: Result Comment: A he matocrit value greater than 55% may lead to inaccurate results in coagulation testing. Patients having hematocrit values >55% require a special collection tube for coagulation studies. Please contact the laboratory at [phone] for redraw instructions. Performed By: #### H S TROP, LIPASE, PT, BMP, HEPATIC, CK, CBC, BNP #### [facility] [address] [place], [place] [id number] [facility] Prothrombin time (PT)Ordered By: Lynnette Chapman on 08-18-2024 PT Coag (PPP) [Time] Prothrombin time (PT) 9.0- 12.9 [facility] Comment on above: A hematocrit value g reater than 55% may lead to inaccurate results in coagulation testing. Patients having hematocrit values >55% require a special collection tube for coagulation studies. Please contact the laboratory at [phone] for redraw instructions. RBC Auto (Bld) [#/Vol]Ordere d By: Lynnette Chapman on 08-18-2024 RBC (Bld) [#/Vol] Erythrocytes [#/volu me] in Blood by Automated count 3.60-5.00 [facility] Serum or plasma albumin/glob ulin mass ratioOrdered By: Lynnette Chapman on 08-18-2024 Albumin/Globulin [Mass ratio] Serum or plasma albumin/globulin mass ratio [facility] Serum or plasma anion gap de terminationOrdered By: Lynnette Chapman on 08-18-2024 Anion gap [Moles/Vol] Serum or plasma an ion gap determination 6.0-15.0 [facility] Serum or plasma non-glucuron idated bilirubin measurement (mass/volume)Ordered By: Lynnette Chapman on 08-18-2024 Bilirubin.indirect [Mass/Vol] Serum or plasma non-glucuronidated bilirubin measurement (mass/volume) [facility] Sodium [Moles/volume] in Ser um or PlasmaOrdered By: Lynnette Chapman on 08-18-2024 Sodium [Moles/Vol] Sodium [Moles/volume ] in Serum or Plasma 136-145 [facility] Troponin I High Sensitivityo n 08-18-2024 Troponin I High Sensitivity 4.7 pg/mL Normal 0.0-15.0 [facility] Comment on above: Result Comment: PERF ORMED BY: [facility] [address] [place] [address] PATHOLOGIST PLASTIC JOINT MAKER JANA OLMEDO M.D. Performed By: #### H S TROP ####[place] [id number] [facility] Troponin I High Sensitivity 5.1 pg/mL Normal 0.0-15.0 [facility] Comment on above: Result Comment: PERF ORMED BY: [facility] [address] [place] [address] PATHOLOGIST PLASTIC JOINT MAKER JANA OLMEDO M.D. Performed By: #### H S TROP, LIPASE, PT, BMP, HEPATIC, CK, CBC, BNP ####[place] [id number] [facility] Troponin I.cardiac [Mass/vol ume] in Serum or Plasma by Detection limit <= 0.01 ng/Ordered By: Lynnette Chapman on 08-18-2024 Troponin I.cardiac DL <= 0.01 ng/mL [Mass/Vol] Troponin I.cardiac [Mass/volume] in Serum or Plasma by Detection limit <= 0.01 ng/ 0.0-15.0 [facility] Urea nitrogen [Mass/volume] in Serum or PlasmaOrdered By: Lynnette Chapman on 08-18-2024 Urea nitrogen [Mass/Vol] Urea nitrogen [Mass/volume] in Serum or Plasma 7-25 [facility] WBC Auto (Bld) [#/Vol]Ordere d By: Lynnette Chapman on 08-18-2024 WBC (Bld) [#/Vol] Leukocytes [#/volume ] in Blood by Automated count 3.8-11.6 [facility] XR chest 2V*on 08-18-2024 XR chest 2V* [facility] [place] [address] [place] [address] XRay Report Signed Patient: Jose Alberto Saleem MR#: [id number] : 1965 Acct:[id number] Age/Sex: 59 / F ADM Date: 08/18/24 Loc: Room: [address] [place] [address] Type: ADM INOo Attending Dr: Donis Arroyo [...] Thelma Wick M.D.08/19/2024 12:10 AM Dictation Location: [place] [address] Transcribed By: [facility] 08/19/24 001 Dictated By: Thelma Wick MD 08/18/242210 Signed By: 08/19/24 001 Normal [facility] Reminderson 08-05-2024 Reminders Reminders From: Magdalena Longoria To: EU - Administrative; Sent: 08/05/2024 13:08:24 EST Show up: 03/01/2025 13:08:00 EDT Subject: 1 yr reminder Due Date/Time: 08/01/2025 13:08:00 EDT Reminder/Recall Patient needs scheduled with [facility] for a 1 yr f/u with [facility] Normal [facility] Urology Office/Clinic Noteon 08-05-2024 Urology Office/Clinic [...] Myrbetriq from 25mg to 50mg qd Ordered: 13828 Measure Post Void residual urine and/or bladder capacity by US- non-imaging E&M of Est. Patient Moderate 30-39 Min 36753 Urnls Dip Stick Auto w/o Microscopy POC 34789 2. Urethral pain (R39.89: Other symptoms and [...] day(s), # 90 tab(s), Refills(s) 3, Pharmacy: [facility] [id number], 160, cm, 08/05/24 11:29:00 EST, Height/Length Dosing, 74.2, kg, 08/05/24 11:29:00 EST, Weight Dosing tamsulosin, 0.4 mg = 1 cap(s), Oral, Daily, # 90 cap(s), Refills(s) 3, Pharmacy: [facility], 160, cm, 08/05/24 11:29:00 EST, Height/Length Dosing, 74.2, kg, 08/05/24 11:29:00 EST, Weight Dosing Follow-up With When Contact Information JENNIFER MARTINO PA-C, URL Within 1 year Additional Instructions: Patient Education Kidney Stones, Kutb-gf-Avrg Problem List/Past Medical History Ongoing Anticoagulated Feeling (more content not included)... Normal [facility] Comment on above: Result Comment: Elec [...] wk f/u. Appointment due by 06/19/2024 [place] with [facility] PT SCHEDULED JUL 03, [address] [facility] Urology Office/Clinic Noteon 04-10-2024 Urology Office/Clinic [...] E&M of Est. Patient High 40-54 Min 54185 Urnls Dip Stick Auto w/o Microscopy POC 80454 2. OAB (overactive bladder) (N32.81: Overactive bladder) [...] E&M of Est. Patient High 40-54 Min 73761 3. Urethral pain (R39.89: Other symptoms and [...] E&M of Est. Patient High 40-54 Min 23147 Orders: estradiol topical, See Instructions, 42.5 gm, Refill(s) 6, apply a pea-sized amount vaginally and around the urethra nightly x 3 weeks, then 3x per week thereafter, [id number], 160, cm, 04/10/24 15:13:00 EDT, Height/Length Dosing, 74, kg, 04/10/24 15:13... mirabegron, 25 mg = 1 tab(s), Oral, Daily, do not fill both mirabegron AND vibegron. only fill whichever has lower co-pay., X 30 day(s), # 30 tab(s), Refills(s) 11, Pharmacy: [facility] #[id number], 160, cm, 04/10/24 15:13:00 EDT, Height/Length Dosing, 74, k... vibegron, 75 mg = 1 tab(s), Oral, Daily, X 30 day(s), # 30 tab(s), Refills(s) 11, Pharmacy: [facility] #[id number], 160, cm, 04/10/24 15:13:00 EDT, Height/Length Dosing, 74, kg, 04/10/24 15:13:00 EDT, Weight Dosing Total time spent reviewing previous notes/results/external documents, preparing the chart, conducting the encounter with the patient and family, ordering tests/medications, and documenting the encounter was 40 minutes. Follow-up With When Contact Information JENNIFER MARTINO PA-C, URL Within 3 months [address] [place] [address] Additional Instructions: Patient Education Kidney Stones, Fnyi-xb-Lqmg Problem List/Past Medical History Ongoing Anticoagulated Feeling of incomplete b (more content not included)... Normal [facility] Comment on above: Result Comment: Elec tronically Signed By: JENNIFER MARTINO PA-C\.br\Date and Time Signed: 04/10/24 16:09 EDT Glucose Glucometer (BldC) [M ass/Vol]on 03-06-2024 Glucose [Mass/Vol] 79 mg/dL Normal 65-99 [facility]-28-2024 [facility] Scheduled EGD/EUS 03/06/24 @1130, PTH, Dr. Cesar, PAT ph: 02/29/24 @1000, #[id number], Clinic appt 02/27/24 w/ Sherita. Normal [facility] [id number] 2023 ALPHA-1 ANTITRYPSIN 145 mg/dL Normal 90-200 [facility] Comment on above: Result Comment: To c onvert to umol/L, multiply mg/dL by 0.185 Performed By: [facility] [address] [place] [address] Core Dipper: Sarwat Gorman MD, PhD CLIA Number: [id number] Performed By: #### L [id number] #### [facility] (BEAKER) [address] [place] [address] ANAon 02-27-2024 CHAY TITER <1:40 Normal <=1:40 [facility] Comment on above: Result Comment: Test performed using BRIJESH IFA CHAY Hep-2 Test, a pre-standardized assay designed for the qualitative and semi-quantitative detection of antinuclear antibodies. Performed By: #### L [id number] #### [facility] (BEAKER) [address] [place] [address] ANTI-SMOOTH MUSCLE ANTIBODY TITERon 02-27-2024 SMOOTH MUSCLE AB, IGG TITER <1:20 Normal <1:20 [facility] Comment on above: Result Comment: INTE RPRETIVE INFORMATION: Smooth Muscle Ab, IgG Titer Less than 1:20 ........ Negative - No antibody detected. 1:20 - 1:80 .......... Weak Positive - Suggest repeat in two to three weeks with fresh specimen. 1:160 or greater ...... Positive - Suggestive of autoimmune hepatitis or chronic active hepatitis. Performed By: [facility] [address] [place] [id number] Core Dipper: Sarwat Gorman MD, PhD CLIA Number: [id number] Performed By: #### L [id number] #### [facility] ([facility]) [address] [place] [address] CBC WITH AUTO DIFFERENTIALon 02-27-2024 Basophils (Bld) [#/Vol] 0.01 10*3/uL Normal 0.00-0.20 [facility] Comment on above: Performed By: #### L [id number] #### [facility] ([facility]) [address] [facility] [place] [address] Basophils/100 WBC (Bld) 0.2 % Normal 0.0-1.0 [facility] Comment on above: Performed By: #### L [id number] #### [facility] ([facility]) [address] [place] [address] Eosinophils (Bld) [#/Vol] 0.17 10*3/uL Normal 0.00-0.50 [facility] Comment on above: Performed By: #### L [id number] #### [facility] ([facility]) [address] [place] [place] [address] Eosinophils/100 WBC (Bld) 3.2 % Normal 0.0-6.0 [facility] Comment on above: Performed By: #### L [id number] #### [facility] ([facility]) [address] [place] [place] [address] Erythrocyte distribution width (RBC) [Ratio] 12.6 % Normal 11.5-15.0 [facility] Comment on above: Performed By: #### L [id number] #### [facility] ([facility] [address] [place] [address] ERYTHROCYTE MEAN CORPUSCULAR HEMOGLOBIN CONCENTRATION (G/DL) BY AUTOMATED 33.6 g/dL Normal 32.0-35.0 [facility] Comment on above: Performed By: #### L [id number] #### [facility] ([facility] [address] [place] [address] Hematocrit (Bld) [Volume fraction] 44.0 % Normal 36.0-48.0 [facility] Comment on above: Performed By: #### L [id number] #### [facility] ([facility]ER) [address] [place] [address] Hemoglobin (Bld) [Mass/Vol] 14.8 g/dL Normal 12.0-15.0 [facility] Comment on above: Performed By: #### L [id number] #### [facility] ([facility]) [address] [place] [address] Immature granulocytes (Bld) [#/Vol] 0.01 10*3/uL Normal 0.00-0.20 [facility] Comment on above: Performed By: #### L [id number] #### [facility] ([facility]) [address] [place] [address] Immature granulocytes/100 WBC (Bld) 0.2 % Normal 0.0-1.0 [facility] Comment on above: Performed By: #### L [id number] #### [facility] ([facility]) [address] [place] [address] Lymphocytes (Bld) [#/Vol] 1.19 10*3/uL Low 1.20-4.00 [facility] Comment on above: Performed By: #### L [id number] #### [facility] ([facility]) [address] [place] [address] Lymphocytes/100 WBC (Bld) 22.3 % Normal 20.0-45.0 [facility] Comment on above: Performed By: #### L [id number] #### [facility] ([facility]ER) [address] [place] [address] MCH (RBC) [Entitic mass] 30.2 pg Normal 27.0-33.0 [facility] Comment on above: Performed By: #### L [id number] #### [facility] ([facility]) [address] [place] [address] MCV (RBC) [Entitic vol] 89.8 fL Normal 82.0-98.0 [facility] Comment on above: Performed By: #### L [id number] #### [facility] ([facility]) [address] [place] [address] Monocytes (Bld) [#/Vol] 0.53 10*3/uL Normal 0.10-1.00 [facility] Comment on above: Performed By: #### L [id number] #### [facility] ([facility]) [address] [place] [address] Monocytes/100 WBC (Bld) 9.9 % Normal 5.0-12.0 [facility] Comment on above: Performed By: #### L [id number] #### [facility] ([facility]) [address] [place] [address] Neutrophils (Bld) [#/Vol] 3.42 10*3/uL Normal 1.60-7.60 [facility] Comment on above: Performed By: #### L [id number] #### [facility] ([facility]) [address] [place] [address] Neutrophils/100 WBC (Bld) 64.2 % Normal 40.0-72.0 [facility] Comment on above: Performed By: #### L [id number] #### [facility] ([facility]) [address] [place] [address] NRBC (PER 100 WBCS) BY AUTOMATED COUNT 0.0 % Normal 0 [facility] Comment on above: Performed By: #### L [id number] #### [facility] ([facility]) [address] [place] [address] PLATELETS (10*3/UL) IN BLOOD AUTOMATED COUNT 198 10*3/uL Normal 150-400 [facility] Comment on above: Performed By: #### L [id number] #### [facility] [address] [place] [address] RBC (Bld) [#/Vol] 4.90 10*6/uL Normal 3.80-5.00 [facility] Comment on above: Performed By: #### L [id number] #### [facility] ([facility] [address] [place] [address] WBC (Bld) [#/Vol] 5.33 10*3/uL Normal 4.00-10.60 [facility] Comment on above: Performed By: #### L [id number] #### [facility] ([facility] [address] [place] [address] COMPREHENSIVE METABOLIC PANE Curtis 02-27-2024 Albumin [Mass/Vol] 4.4 g/dL Normal 3.5-5.7 [facility] Comment on above: Performed By: #### L [id number] #### [facility] ([facility]) [address] [place] [address] ALP [Catalytic activity/Vol] 84 U/L Normal 34-104 [facility] Comment on above: Performed By: #### L [id number] #### [facility] ([facility]) [address] [place] [address] ALT [Catalytic activity/Vol] 43 U/L Normal 7-52 [facility] Comment on above: Performed By: #### L [id number] #### [facility] ([facility]) [address] [place] [address] Anion gap [Moles/Vol] 11 mmol/L Normal 7-20 [facility] Comment on above: Performed By: #### L [id number] #### [facility] ([facility] [address] [place] [address] AST [Catalytic activity/Vol] 33 U/L Normal 13-39 [facility] Comment on above: Performed By: #### L [id number] #### [facility] ([facility] [address] [place] [address] Bilirubin [Mass/Vol] 0.4 mg/dL Normal 0.3-1.0 [facility] Comment on above: Performed By: #### L [id number] #### [facility] ([facility] [address] [place] [address] Calcium [Mass/Vol] 9.9 mg/dL Normal 8.6-10.3 [facility] Comment on above: Performed By: #### L [id number] #### [facility] ([facility]) [address] [place] [address] Chloride [Moles/Vol] 102 mmol/L Normal 98-107 [facility] Comment on above: Performed By: #### L [id number] #### [facility] [address] [place] [address] CO2 [Moles/Vol] 29 mmol/L Normal 21-31 [facility] Comment on above: Performed By: #### L [id number] #### [facility] ([facility]) [address] [place] [address] Creatinine [Mass/Vol] 0.62 mg/dL Normal 0.60-1.20 [facility] Comment on above: Performed By: #### L [id number] #### [facility] ([facility]) [address] [place] [address] GLOMERULAR FILTRATION RATE ML/MIN/1.73 SQ M.PREDICTED 102.5 mL/min/1.73m*2 Normal >60.0 [facility] Comment on above: Result Comment: [facility]???s estimated glomerular filtration rate (eGFR) will no [...] individuals. Performed By: #### L [id number] #### [facility] [address] [place] [address] Glucose [Mass/Vol] 90 mg/dL Normal 70-100 [facility] Comment on above: Performed By: #### L [id number] #### [facility] ([facility]) [address] [place] [address] Potassium [Moles/Vol] 4.2 mmol/L Normal 3.5-5.1 [facility] Comment on above: Performed By: #### L [id number] #### [facility] ([facility]) [address] [place] [address] Protein [Mass/Vol] 6.9 g/dL Normal 6.0-8.3 [facility] Comment on above: Performed By: #### L [id number] #### [facility] ([facility] [address] [place] [address] Sodium [Moles/Vol] 138 mmol/L Normal 136-145 [facility] Comment on above: Performed By: #### L [id number] #### [facility] ([facility]) [address] [place] [address] Urea nitrogen [Mass/Vol] 27 mg/dL High 7-25 [facility] Comment on above: Performed By: #### L [id number] #### [facility] ([facility]) [address] [place] [address] UREA NITROGEN/CREATININE (MASS RATIO) IN SER/PLAS 43.5 Normal [facility] Comment on above: Performed By: #### L [id number] #### [facility] ([facility]) [address] [place] [address] COPPER, SERUMon 02-27-2024 COPPER 125.0 ug/dL Normal 80.0-155.0 [facility] Comment on above: Result Comment: INTE RPRETIVE [...] developed and its performance characteristics determined by [facility]. It has not been cleared or approved by the [place] Food and Drug Administration. This test was performed in a CLIA certified laboratory and is intended for clinical purposes. Performed By: [facility] [address] [place] [address] Core Dipper: Sarwat Gorman MD, PhD CLIA Number: [id number] Performed By: #### L [id number] #### [facility] ([facility]) [address] [place] [address] FERRITINon 02-27-2024 FERRITIN (NG/ML) IN SER/PLAS 32.0 ng/mL Normal 11.0-307.0 [facility] Comment on above: Performed By: #### L [id number] #### [facility] ([facility]) [address] [place] [address] FOLATEon 02-27-2024 FOLATE (NG/ML) IN SER/PLAS 39.0 ng/mL Normal 6.6-1000 [facility] Comment on above: Performed By: #### L [id number] #### [facility] ([facility]) [address] [place] [address] HEMOGLOBIN A1Con 02-27-2024 Glucose [Mass/Vol] 100 mg/dL Normal [facility] Comment on above: Performed By: #### L [id number] #### [facility] ([facility]) [address] [place] [address] HbA1c (Bld) [Mass fraction] 5.1 % Normal 4.0-6.0 [facility] Comment on above: Performed By: #### L [id number] #### [facility] ([facility]) [address] [place] [address] HEPATITIS PANEL, ACUTEon HEPATITIS A VIRUS IGM AB PRESENCE IN SER/PLAS Non-Reactive Normal Nonreactive [facility] Comment on above: Performed By: #### L [id number] #### [facility] ([facility]) [address] [place] [address] HEPATITIS B VIRUS CORE AB (PRESENCE) IN SER/PLAS BY IMM Non-Reactive Normal Nonreactive [facility] Comment on above: Performed By: #### L [id number] #### [facility] ([facility]) [address] [place] [address] HEPATITIS B VIRUS SURFACE AG PRESENCE IN SERUM Non-Reactive Normal Nonreactive [facility] Comment on above: Performed By: #### L [id number] #### [facility] ([facility]) [address] [place] [address] HEPATITIS C VIRUS AB PRESENCE IN SERUM Non-Reactive Normal Nonreactive [facility] Comment on above: Performed By: #### L [id number] #### [facility] ([facility]) [address] [place] [address] IGAon 02-27-2024 Magnesium [Mass/Vol] 108 mg/dL Normal 60-413 [facility] Comment on above: Performed By: #### L [id number] #### [facility] ([facility]) [address] [place] [address] IGG 1, 2, 3, AND 4on 024 IgG subclass 1 (S) [Mass/Vol] 293 mg/dL Normal 240-1118 [facility] Comment on above: Result Comment: REFE RENCE INTERVAL: Immunoglobulin G Subclass 1 The total IgG (mg/dL) can be derived from the sum of the subclass IgG1, IgG2, IgG3, and IgG4 values. However, a confirmatory and more precise total IgG is available by the turbidimetric method of quantitation for total IgG. Refer to test Immunoglobulin G, Serum ([id number]). Access complete set of age- and/or gender-specific reference intervals for this test in the [facility] Test Directory (food.de). Performed By: #### L [id number] #### [facility] ([facility]) [address] [place] [address] IgG subclass 2 (S) [Mass/Vol] 160 mg/dL Normal 124-549 [facility] Comment on above: Result Comment: REFE RENCE INTERVAL: Immunoglobulin G Subclass 2 Access complete set of age- and/or gender-specific reference intervals for this test in the [facility] Directory (food.de). Performed By: #### L [id number] #### [facility] ([facility]) [address] [place] [address] IgG subclass 3 (S) [Mass/Vol] 32 mg/dL Normal 21-134 [facility] Comment on above: Result Comment: REFE RENCE INTERVAL: Immunoglobulin G Subclass 3 Access complete set of age- and/or gender-specific reference intervals for this test in the [facility] Directory (food.de). Performed By: #### L [id number] #### [facility] ([facility]) [address] [place] [address] IgG subclass 4 (S) [Mass/Vol] 21 mg/dL Normal 1-123 [facility] Comment on above: Result Comment: REFE RENCE INTERVAL: Immunoglobulin G Subclass 4 Access complete set of age- and/or gender-specific reference intervals for this test in the [facility] Directory (food.de). Performed By: [facility] [address] [place] [address] Core Dipper: Sarwat Gorman MD, PhD CLIA Number: [id number] Performed By: #### L [id number] #### [facility] ([facility]) [address] [place] [address] IRON AND TIBCon 02-27-2024 IRON (UG/DL) IN SER/PLAS 56 ug/dL Normal 50-212 [facility] Comment on above: Performed By: #### L [id number] #### [facility] ([facility]) [address] [place] [address] IRON BINDING CAPACITY (UG/DL) IN SER/PLAS 364 ug/dL Normal 250-450 [facility] Comment on above: Performed By: #### L [id number] #### [facility] ([facility]) [address] [place] [address] IRON BINDING CAPACITY.UNSATURATED (UG/DL) IN SER/PLAS 308.0 ug/dL Normal 155.0-355.0 [facility] Comment on above: Performed By: #### L [id number] #### [facility] ([facility]) [address] [place] [address] IRON SATURATION (%) IN SER/PLAS 15 % Low 20-50 [facility] Comment on above: Performed By: #### L [id number] #### [facility] ([facility]) [address] [facility] [place] [address] LIPID PANELon 02-27-2024 CHOL/HDL 2.9 mg/dL Normal [facility] Comment on above: Performed By: #### L [id number] #### [facility] ([facility]) [address] [place] [place] [address] Cholesterol [Mass/Vol] 111 mg/dL Low 120-200 [facility] Comment on above: Performed By: #### L [id number] #### [facility] ([facility]) [address] [place] [address] Magnesium [Mass/Vol] 144 mg/dL Normal 40-149 [facility] Comment on above: Result Comment: TRIG LYCERIDE REFERENCE RANGE: 20 YEARS AND OLDER CARDIOVASCULAR RISK LESS THAN 150 mg/dL LOW RISK 150 TO 199 mg/dL BORDERLINE RISK 200 mg/dL AND GREATER HIGH RISK Performed By: #### L [id number] #### [facility] ([facility]) [address] [place] [address] Magnesium [Mass/Vol] 44 mg/dL Normal 0-160 [facility] Comment on above: Performed By: #### L [id number] #### [facility] ([facility]) [address] [facility] [place] [address] Magnesium [Mass/Vol] 38 mg/dL Normal 23-92 [facility] Comment on above: Performed By: #### L [id number] #### [facility] ([facility]) [address] [place] [address] NON HDL CHOL. (LDL+VLDL) 73 Normal [facility] Comment on above: Performed By: #### L [id number] #### [facility] ([facility]) [address] [place] [address] TOTAL VLDL-C 29 mg/dL Normal 0-40 [facility] Comment on above: Performed By: #### L [id number] #### [facility] ([facility]) [address] [place] [address] LIVER FIBROSIS CHRONIC VIRAL HEPATITISon 02-27-2024 [id number] , FIBROMETER 328 mg/dL High 131-293 [facility] Comment on above: Performed By: #### L [id number] #### [facility] ([facility]) [address] [place] [address] ALT [Catalytic activity/Vol] 57 U/L High 5-40 [facility] Comment on above: Performed By: #### L [id number] #### [facility] ([facility]) [address] [place] [place] [address] Amylase [Catalytic activity/Vol] 18 U/L Normal 7-33 [facility] Comment on above: Performed By: #### L [id number] #### [facility] ([facility]) [address] [place] [place] [address] AST [Catalytic activity/Vol] 41 U/L High 9-40 [facility] Comment on above: Performed By: #### L [id number] #### [facility] ([facility]) [address] [place] [address] CIRRHOMETER PATIENT SCORE 0.08 Normal [facility] Comment on above: Performed By: #### L [id number] #### [facility] ([facility]) [address] [place] [address] EER FIBROMETER REPORT See Note Normal [facility] Comment on above: Result Comment: Auth orized individuals can access the [facility] Enhanced Report using the following link: [email or web address] Performed By: #### L [id number] #### [facility] ([facility]) [address] [place] [address] FIBROMETER INTERPRETATION See Report Normal [facility] Comment on above: Result Comment: [17] [13] INTERPRETIVE INFORMATION: Fibrometer Interpretation Calculations for the final report are based on accurate data for age, gender, and platelet count. If any of this information needs to be corrected, please contact [employer] to request a recalculation. Client [...] developed and its performance characteristics determined by [employer]. It has not been cleared or approved by the [place] Food and Drug Administration. This test was performed in a CLIA certified laboratory and is intended for clinical purposes. Performed By: [employer] [address] [place] [address] Core Dipper: Sarwat Gorman MD, PhD CLIA Number: [id number] Performed By: #### L [id number] #### [facility] ([facility]) [address] [place] [address] FIBROMETER PATIENT SCORE 0.62 Normal [facility] Comment on above: Performed By: #### L [id number] #### [facility] ([facility] [address] [place] [address] FIBROMETER PLATELET COUNT 198 k/uL Normal [facility] Comment on above: Performed By: #### L [id number] #### [facility] ([facility]) [address] [place] [address] FIBROMETER PROTHROMBIN INDEX 81 % Low 90-120 [facility] Comment on above: Performed By: #### L [id number] #### [facility] ([facility]) [address] [place] [address] FIBROSIS METAVIR CLASSIFICATION F2[F1-F3] Normal [facility] Comment on above: Result Comment: INTE RPRETIVE [...] possible Performed By: #### L [id number] #### [facility] ([facility]) [address] [place] [address] INFLAMETER METAVIR CLASSIFICATION A1/A2 [facility] Comment on above: Result Comment: INTE RPRETIVE INFORMATION: [employer]eter Metavir Classification [employer] (activity score) comments A0/A1 Equal probability between A0 and A1 A1/A2 Equal probability between A1 and A2 A2/A3 Equal probability between A2 and A3 Performed By: #### L [id number] #### [facility] ([facility]) [address] [place] [address] INFLAMETER PATIENT SCORE 0.62 Normal [facility] Comment on above: Performed By: #### L [id number] #### [facility] ([facility]) [address] [place] [address] Urea nitrogen [Mass/Vol] 28 mg/dL High 7-20 [facility] Comment on above: Performed By: #### L [id number] #### [facility] ([facility] [address] [facility] [place] [address] Labon 02-27-2024 Lab [id number] Diana Saleem tte 1965 Provider Department Center 02/27/2024 2244-[facility] RESOURCE DRAW Medical [facility]avi Family History Problem Relation Age of Onset Hyperlipidemia Mother Hyperlipidemia Father Hyperlipidemia Brother Heart attack Brother Family Status - Relation Status Age at Mother Father Brother Brother Normal [facility] MITOCHONDRIAL ANTIBODIES, M2 on 02-27-2024 MITOCHONDRIAL M2 ANTIBODY 7.2 Units Normal 0.0-24.9 [facility] Comment on above: Result Comment: REFE RENCE [...] does not rule out PBC. Performed By: [employer] [address] [place] [address] Core Dipper: Sarwat Gorman MD, PhD CLIA Number: [id number] Performed By: #### L [id number] #### [facility] ([facility]) [address] [facility] [place] [address] Office Visiton 02-27-2024 Follow-up visit [id number] Diana Saleem tte 1965 Provider Department Center 02/27/2024 [facility]-DANIELLE [facility] Family History Problem Relation Age of Onset Hyperlipidemia Mother Hyperlipidemia Father Hyperlipidemia Brother Heart attack Brother Family Status - Relation Status Age at Mother Father Brother Brother Level of Service:09384 LA OFFICE/OUTPATIENT NEW MODERATE MDM 45 MINUTES (GC) Reason for Visit and Comments: New Patient [632] Pancreatitis [560441] Normal [facility] PROTIME-INRon 02-27-2024 INR IN PPP BY COAGULATION ASSAY 1.08 Normal 0.90-1.10 [facility] Comment on above: Result Comment: [facility] P RECOMMENDED INR FOR WARFARIN THERAPY CONDITION [...] 1995;108:231S-246S. Performed By: #### L [id number] #### [facility] ([facility] [address] [place] [address] PROTHROMBIN TIME (PT) IN PPP BY COAGULATION ASSAY 14.0 Seconds Normal 12.3-14.8 [facility] Comment on above: Performed By: #### L [id number] #### [facility] ([facility] [address] [place] [address] TISSUE TRANSGLUTAMINASE, IGA on 02-27-2024 TISSUE TRANSGLUTAMINASE, IGA <1.02 Normal 0.00-4.99 [facility] Comment on above: Result Comment: INTE RPRETIVE [...] indicate a response to therapy. Performed By: [employer] [address] [place] [address] Core Dipper: Sarwat Gorman MD, PhD CLIA Number: [id number] Performed By: #### L [id number] #### [facility] ([facility]) [address] [place] [address] TSH3 REFLEX TO FT4on 024 THYROTROPIN (MIU/L) IN SER/PLAS BY DETECTION LIMIT <= 0.05 MIU/L 2.02 mIU/L Normal 0.34-5.60 [facility] Comment on above: Performed By: #### L [id number] #### [facility] ([facility]) [address] [place] [address] VITAMIN B12on 02-27-2024 Cobalamin (Vitamin B12) [Mass/Vol] 1862 pg/mL High 180-914 [facility] Comment on above: Result Comment: REFE RENCE RANGES: 180-914 pg/mL Normal 145-179 pg/mL Indeterminate <145 pg/mL Deficient Performed By: #### L [id number] #### [facility] ([facility]) [address] [place] [address] VITAMIN D 25 HYDROXYon 02-26 CALCIDIOL (25 [place] VITAMIN D3) (NG/ML) IN SER/PLAS 62.1 ng/mL Normal 30.0-80.0 [facility] Comment on above: Result Comment: >80. 0 Toxicity possible Performed By: #### L [id number] #### [facility] ([facility]) [address] [place] [address] Orders Onlyon 02-12-2024 Orders Only [id number] Diana Saleem ttrene 1965 F Date Provider Department Center 02/12/2024 [id number], HISTORICAL MP [facility] No family history on file Normal [facility] Lab Reportson 01-23-2024 Lab Reports [id number]#1.00TIF F Normal [facility] Lab Reports [id number] [id number]#1.00TIF F Normal [facility] Lab Reportson 01-22-2024 Lab Reports [id number]#1.00TIF F Normal [facility] Lab Reports [id number]#1.00TIF F Normal [facility] Lab Reports [id number]#1.00TIF F [facility] RAD - MISCon 01-22-2024 RAD - MISC [id number]#1.00TIF F Normal [facility] Surgical Pathology Reporton 06-18-2023 Surgical Pathology Report (NOTE) Path Number: [id number] -- Diagnosis -- ENDOMETRIAL CURETTINGS: -BENIGN ENDOMETRIAL [...] Microscopic Description Microscopic examination performed. Processing Lab: [facility] [address] [place] [address] Interpretation Performed at [facility] [address] [place] [address] SURGICAL PATHOLOGY CONSULTATION Patient Name: JOSE ALBERTO SALEEM [facility] Rec: [address] [facility] [address] [place], [place] [address] Normal [facility] US NON OB TRANSVAGINALon US NON OB [...] Gaby Tello DO 06/05/23 Final result Normal [facility] Ceruloplasminon 12-12-2022 Ceruloplasmin 30.6 mg/dL 19.0-39.0 mg/dL [employer] Other Ferritinon 12-12-2022 Ferritin [Mass/Vol] 43.6086569 ng/mL Normal 11.0 -306.8 ng/mL [employer] [facility] Other Hepatitis A Antibody Totalon 12-12-2022 Hepatitis A Antibody Total Negative . [employer] Other Hepatitis B Surface Antibody on 12-12-2022 Hepatitis B Surface Antibody Non-Reactive Non Reactive [employer] Other Immunoglobulin Javi 3 Immunoglobulin G 823 mg/dL 586-1602 mg/dL [employer] Other Liver-Kidney Microsomal Abon 12-12-2022 Liver-Kidney Microsomal Ab 1.1 0.0-20.0 [employer] Other Mitochondrial (M2) Antibodyo n 12-12-2022 Mitochondrial (M2) Antibody <20.0 0.0-20.0 [employer] Other Smooth Muscle Antibodyon Smooth Muscle Antibody 5 0-19 [employer] Other MR MRCPon 11-10-2022 MR MRCP [facility] Other MR MRCP [facility] Other MR MRCP [address] [facility] [place] [address] [facility] Other MR MRCP MRI Report [facility] Other MR MRCP Signed [employer] Other MR MRCP Patient: Danika Saleem MR#: [id number] [facility] Other MR MRCP [address] [facility] Rain Other MR MRCP : 1965 Acct:[id number] [employer] Other MR MRCP Age/Sex: 57 / F ADM Date: 11/10/22 [employer] Other MRCP Loc: MR Room: Type: [facility] [employer] Other MR MRCP Attending Dr: Evert salinas MD [employer] Other MR MRCP Copies to: Evert daigle MD [employer] Other MRCP Ordering Provider: Marleny Bruno MD [employer] Other MR MRCP Date of Service: 11/10/22 [employer] Other MR MRCP MR/MR MRCP: Abdominal pain;Common bile duct dilatation;Elevated liver en [employer] Other MR MRCP MRCP [employer] Other MR MRCP CLINICAL DATA: [place] lipase. Abnormal outside abdominal CT [employer] Other MR MRCP COMPARISON: CT abdom en 10/16/[address] [facility] Other MR MRCP Multiecho imaging of the abdomen was performed along with radial imaging of the biliary tree. [employer] Other MR MRCP The gallbladder surgically absent. There is no significant intrahepatic biliary dilatation. The [employer] Other MR MRCP common duct is sligh tly prominent measuring up to 6 mm. It tapers toward the ampulla. No in [employer] Other MR MRCP traluminal filling defects are identified to suggest choledocholithiasis. The pancreatic duct is [employer] Other MR MRCP also borderline prominent measuring 2 - 3 mm. No intrahepatic masses are identified. No pancreatic [facility] Other MR MRCP abnormalities are no hayely. The spleen and adrenal glands are within normal limits. There is no [employer] Other MR MRCP hydronephrosis. Ther e are right renal cysts. There is no aortic aneurysm. No adenopathy or [employer] Other MR MRCP ascites is seen. The re is no dilated bowel within the [id number]. [employer] Other MR MRCP M R/MR MRCP [facility] Other MR MRCP IMPRESSION: [employer] Other MR MRCP SLIGHTLY PROMINENT COMMON DUCT, WITHOUT CHOLEDOCHOLITHIASIS. THIS MAY RELATE TO PREVIOUS [employer] Other MR MRCP CHOLECYSTECTOMY. [facility] Rain Other MR MRCP RIGHT RENAL CYSTS. [employer] Other MR MRCP NO OTHER SIGNIFICANT MRI FINDINGS. [employer] Other MR MRCP Impression dictated by: Thelma Wick M.D.11/10/2022 7:00 PM [employer] Other MR MRCP Dictation Location: [place] [address] [employer] Other MR MRCP Transcribed By: PWS 11/10/221899 [employer] Other MR MRCP Dictated By: hTelma Wick MD 11/10/221849 [employer] Other MR MRCP Signed By: [employer] Other MR MRCP 11/10/221899 [employer] Other Albumin [Mass/volume] in Ser um or PlasmaOrdered By: Evert Bruno on 11-01-2022 Albumin [Mass/Vol] 4.0 g/dL 3.2-5.5 [facility] Direct bilirubin measurement Ordered By: Evert Bruno on 11-01-2022 Bilirubin.direct [Mass/Vol] 0.1 mg/dL 0.0-0.4 [facility] Globulin Calc (S) [Mass/Vol] Ordered By: Evert Bruno on 11-01-2022 Globulin (S) [Mass/Vol] 2.5 g/dL [facility] Hepatic Panelon 11-01-2022 Albumin [Mass/Vol] 4.542806 g/dL Normal 3.2-5.5 g/dL [employer] Other ALT [Catalytic activity/Vol] 94 U/L High 10-60 U/L [employer] Other Bilirubin [Mass/Vol] 0.0749462 mg/dL Normal 0.3- 1.2 mg/dL [employer] Other Bilirubin.indirect [Mass/Vol] 0.8532824 mg/dL Normal 0.0-0.4 mg/dL [employer] Other Protein [Mass/Vol] 6.037901 g/dL Normal 6.1-7.9 g/dL [employer] Other Hepatic Panel 0.5 mg/dL [employer] Other Hepatic Panel 2.5 g/dL [employer] Other Protein [Mass/volume] in Ser um or PlasmaOrdered By: Imsara Bruno on 11-01-2022 Protein [Mass/Vol] 6.5 g/dL 6.1-7.9 [facility] Serum or plasma alanine li otransferase measurement without P-5'-P (enzymatic activiOrdered By: Imad Asaad on 11-01-2022 ALT No additional P-5'-P [Catalytic activity/Vol] 94 U/L 10-60 [facility] Serum or plasma albumin/glob ulin mass ratioOrdered By: ImMunetrix Asaad on 11-01-2022 Albumin/Globulin [Mass ratio] 1.6 {ratio} [facility] Serum or plasma alkaline monster sphatase measurement (enzymatic activity/volume)Ordered By: [employer]rix Asaad on 11-01-2022 ALP [Catalytic activity/Vol] 93 U/L 32-92 [facility] Serum or plasma aspartate am inotransferase measurement (enzymatic activity/volume)Ordered By: [employer] Asaad on 11-01-2022 AST [Catalytic activity/Vol] 66 U/L 10-42 [facility] Serum or plasma non-glucuron idated bilirubin measurement (mass/volume)Ordered By: [employer] on 11-01-2022 Bilirubin.indirect [Mass/Vol] 0.5 mg/dL [facility] Serum or plasma total biliru bin measurement (mass/volume)Ordered By: [employer] Asaad on 11-01-2022 Bilirubin [Mass/Vol] 0.6 mg/dL 0.3-1.[address] [facility] [address] ABDOMEN WO/W CONon 2022 CT [...] JAE WILSON Date: 2022-10-17 08:23 [address] [facility] AMMONIAon 10-09-2022 Ammonia (P) [Moles/Vol] 10 umol/L Critically low 11-[address] [facility] Comment on above: Performed By: #### A MY #### [facility] [address] [place] [address] Dr. Ayden Cam AMYLASEon 10-09-2022 Amylase [Catalytic activity/Vol] 144 U/L Critically high 25-[address] [facility] Comment on above: Performed By: #### L IPA #### [facility] [address] [place] [address] Dr. Ayden Cam CBC AUTO DIFFon 10-09-2022 BASO # 0.0 103/ul Normal 0.0-0.[address] [facility] Comment on above: Performed By: #### C BC #### [facility] [address] [place] [address] Dr. Ayden Cam Basophils/100 WBC (Bld) 0.2 % Normal 0.2-2.[address] [facility] Comment on above: Performed By: #### C BC #### [facility] [address] [place] [address] Dr. Ayden Cam EO # 0.2 103/ul Normal 0.0-0.[address] [facility] Comment on above: Performed By: #### C BC #### [facility] [address] [place] [address] Dr. Ayden Cam Eosinophils/100 WBC (Bld) 3.3 % Normal 0.9-7.[address] [facility] Comment on above: Performed By: #### C BC #### [facility] [address] [place] [address] Dr. Ayden Cam Erythrocyte distribution width (RBC) [Ratio] 12.1 % Normal 11.0-15.[address] [facility] Comment on above: Performed By: #### C BC #### [facility] [address] [place] [address] Dr. Ayden Cam Hematocrit (Bld) [Volume fraction] 40.0 % Normal 36.0-48.[address] [facility] Comment on above: Performed By: #### C BC #### [facility] [address] [place] [address] Dr. Ayden Cam Hemoglobin (Bld) [Mass/Vol] 14.2 g/dL Normal 12.0-16.[address] [facility] Comment on above: Performed By: #### C BC #### [facility] [address] [place] [address] Dr. Ayden Cam IG # 0.01 10e3/ul Normal 0.00-0.[address] [facility] Comment on above: Performed By: #### C BC #### [facility] [address] [place] [address] Dr. Ayden Cam IG % 0.2 % Normal 0.0-0.[address] [facility] Comment on above: Performed By: #### C BC #### [facility] [address] [place] [address] Dr. Ayden Cam LYMPH # 1.5 103/ul Normal 1.2-3.[address] [facility] Comment on above: Performed By: #### C BC #### [facility] [address] [place] [address] Dr. Ayden Cam Lymphocytes/100 WBC (Bld) 24.2 % Normal 20.5-60.0 [facility] Comment on above: Performed By: #### C BC #### [facility] [address] [place] [address] Dr. Ayden Cam MANUAL DIFF REQ NO Normal [facility] Comment on above: Performed By: #### C BC #### [facility] [address] [place] [address] Dr. Ayden Cam MCH (RBC) [Entitic mass] 30.0 pg Normal 26.7-34.[address] [facility] Comment on above: Performed By: #### C BC #### [facility] [address] [place] [address] Dr. Ayden Cam MCHC (RBC) [Mass/Vol] 35.5 g/dL Critically high 29.9-35.[address] [facility] Comment on above: Performed By: #### C BC #### [facility] [address] [place] [address] Dr. Ayden Cam MCV (RBC) [Entitic vol] 84.4 fL Normal 81.0-99.[address] [facility] Comment on above: Performed By: #### C BC #### [facility] [address] [place] [address] Dr. Ayden Cam MONO # 0.6 103/ul Normal 0.3-0.[address] [facility] Comment on above: Performed By: #### C BC #### [facility] [address] [place] [address] Dr. Ayden Cam Monocytes/100 WBC (Bld) 10.3 % Normal 1.7-12.[address] [facility] Comment on above: Performed By: #### C BC #### [facility] [address] [place] [address] Dr. Ayden Cam NEUT # 3.7 103/ul Normal 1.4-6.[address] [facility] Comment on above: Performed By: #### C BC #### [facility] [address] [place] [address] Dr. Ayden Cam Neutrophils/100 WBC (Bld) 61.8 % Normal 43.0-75.[address] [facility] Comment on above: Performed By: #### C BC #### [facility] [address] [place] [address] [address] Ayden Cam Platelet mean volume (Bld) [Entitic vol] 9.0 fL Critically low 9.5-13.[address] [facility] Comment on above: Performed By: #### C BC #### [facility] [address] [place] [address] Dr. Ayden Cam PLT 191 103/ul Normal 150-[address] [facility] Comment on above: Performed By: #### C BC #### [facility] [address] [place] [address] Dr. Ayden Cam RBC 4.74 106/ul Normal 4.20-5.[address] [facility] Comment on above: Performed By: #### C BC #### [facility] [address] [place] [address] Dr. Ayden Cam WBC 6.0 103/ul Normal 4.0-11.[address] [facility] Comment on above: Performed By: #### C BC #### [facility] [address] [place] [address] Dr. Ayden Cam LIPASEon 10-09-2022 Lipase [Catalytic activity/Vol] 168.0 U/L Normal 73.0-393.[address] [facility] Comment on above: Performed By: #### L ACT #### [facility] [address] [place] [address] Dr. Ayden Cam PROF 14(COMP METB)on 023 Albumin [Mass/Vol] 3.6 g/dL Normal 3.4-5.0 [facility] Comment on above: Performed By: #### L IPA #### [facility] [address] [place] [address] Dr. Ayden Cam Albumin/Globulin [Mass ratio] 1.1 {ratio} Normal [facility] Comment on above: Performed By: #### L IPA #### [facility] [address] [place] [address] Dr. Ayden Cam ALP [Catalytic activity/Vol] 93 U/L Normal 46-[address] [facility] Comment on above: Performed By: #### L IPA #### [facility] [address] [place] [address] [address] Ayden Cam ALT [Catalytic activity/Vol] 52 U/L Normal 14-[address] [facility] Comment on above: Performed By: #### L IPA #### [facility] [address] [place] [address] [address] Ayden Cam Anion gap [Moles/Vol] 10.2 mmol/L Normal [facility] Comment on above: Performed By: #### L IPA #### [facility] [address] [place] [address] [address] Ayden Cam AST [Catalytic activity/Vol] 33 U/L Normal 15-[address] [facility] Comment on above: Performed By: #### L IPA #### [facility] [address] [place] [address] [address] Ayden Cam Bilirubin [Mass/Vol] 0.3 mg/dL Normal 0.2-1.[address] [facility] Comment on above: Performed By: #### L IPA #### [facility] [address] [place] [address] [address] Ayden Cam Calcium [Mass/Vol] 9.4 mg/dL Normal 8.5-10.1 [facility] Comment on above: Performed By: #### L IPA #### [facility] [address] [address] [address] Ayden Cam Chloride [Moles/Vol] 99 mmol/L Normal 98-[address] [facility] Comment on above: Performed By: #### L IPA #### [facility] [address] [address] [address] Ayden Cam CO2 [Moles/Vol] 33.7 mmol/L Critically high 21.0-32.[address] [facility] Comment on above: Performed By: #### L IPA #### [facility] [address] [address] [address] Ayden Cam Creatinine [Mass/Vol] 0.62 mg/dL Normal 0.55-1.[address] [facility] Comment on above: Performed By: #### L IPA #### [facility] [address] [address] [address] Ayden Cam EGFR-AF MALDIVIAN >60 Normal >=60 [facility] Comment on above: Performed By: #### L IPA #### [facility] [address] [place] [address] Dr. Ayden Cam EGFR-NON AF MALDIVIAN >60 Normal >=[address] [facility] Comment on above: Performed By: #### L IPA #### [facility] [address] [address] [address] Ayden Cam Globulin (S) [Mass/Vol] 3.4 g/dL Normal [facility] Comment on above: Performed By: #### L IPA #### [facility] [address] [place] [address] Dr. Ayden Cam Glucose [Mass/Vol] 105 mg/dL Normal 74-106 [facility] Comment on above: Performed By: #### L IPA #### [facility] [address] [place] [address] Dr. Ayden Cam Potassium [Moles/Vol] 3.9 mmol/L Normal 3.5-5.[address] [facility] Comment on above: Performed By: #### L IPA #### [facility] [address] [place] [address] Dr. Ayden Cam Protein [Mass/Vol] 7.0 g/dL Normal 6.4-8.2 [facility] Comment on above: Performed By: #### L IPA #### [facility] [address] [place] [address] Dr. Ayden Cam Sodium [Moles/Vol] 139 mmol/L Normal 136-145 [facility] Comment on above: Performed By: #### L IPA #### [facility] [address] [place] [address] Dr. Ayden Cam Urea nitrogen [Mass/Vol] 28.0 mg/dL Critically high 7.0-18.[address] [facility] Comment on above: Performed By: #### L IPA #### [facility] [address] [place] [address] Dr. Ayden Cam Urea nitrogen/Creatinine [Mass ratio] 45.2 mg/mg Normal [facility] Comment on above: Performed By: #### L IPA #### [facility] [address] [place] [address] Dr. Ayden Cam AMMONIAon 10-06-2022 Ammonia (P) [Moles/Vol] 16 umol/L Normal 11-[address] [facility] Comment on above: Performed By: #### A MM #### [facility] [address] [place] [address] Dr. Ayden Cam AMYLASEon 10-06-2022 Amylase [Catalytic activity/Vol] 189 U/L Critically high 25-[address] [facility] Comment on above: Performed By: #### L IPA #### [facility] [address] [place] [address] Dr. Ayden Cam CBC AUTO DIFFon 10-06-2022 BASO # 0.0 103/ul Normal 0.0-0.[address] [facility] Comment on above: Performed By: #### C BC #### [facility] [address] [place] [address] Dr. Ayden Cam Basophils/100 WBC (Bld) 0.2 % Normal 0.2-2.[address] [facility] Comment on above: Performed By: #### C BC #### [facility] [address] [place] [address] Dr. Ayden Cam EO # 0.3 103/ul Normal 0.0-0.[address] [facility] Comment on above: Performed By: #### C BC #### [facility] [address] [place] [address] Dr. Ayden Cam Eosinophils/100 WBC (Bld) 5.2 % Normal 0.9-7.[address] [facility] Comment on above: Performed By: #### C BC #### [facility] [address] [place] [address] Dr. Ayden Cam Erythrocyte distribution width (RBC) [Ratio] 12.3 % Normal 11.0-15.[address] [facility] Comment on above: Performed By: #### C BC #### [facility] [address] [place] [address] Dr. Ayden Cam Hematocrit (Bld) [Volume fraction] 36.9 % Normal 36.0-48.[address] [facility] Comment on above: Performed By: #### C BC #### [facility] [address] [place] [address] Dr. Ayden Cam Hemoglobin (Bld) [Mass/Vol] 12.4 g/dL Normal 12.0-16.[address] [facility] Comment on above: Performed By: #### C BC #### [facility] [address] [place] [address] Dr. Ayden Cam IG # 0.01 10e3/ul Normal 0.00-0.[address] [facility] Comment on above: Performed By: #### C BC #### [facility] [address] [place] [address] Dr. Ayden Cam IG % 0.2 % Normal 0.0-0.[address] [facility] Comment on above: Performed By: #### C BC #### [facility] [address] [place] [address] Dr. Ayden Cam LYMPH # 1.8 103/ul Normal 1.2-3.[address] [facility] Comment on above: Performed By: #### C BC #### [facility] [address] [place] [address] Dr. Ayden Cam Lymphocytes/100 WBC (Bld) 31.3 % Normal 20.5-60.[address] [facility] Comment on above: Performed By: #### C BC #### [facility] [address] [place] [address] Dr. Ayden Cam MANUAL DIFF REQ NO Normal [facility] Comment on above: Performed By: #### C BC #### [facility] [address] [place] [address] Dr. Ayden Cam MCH (RBC) [Entitic mass] 30.0 pg Normal 26.7-34.[address] [facility] Comment on above: Performed By: #### C BC #### [facility] [address] [place] [address] Dr. Ayden Cam MCHC (RBC) [Mass/Vol] 33.6 g/dL Normal 29.9-35.[address] [facility] Comment on above: Performed By: #### C BC #### [facility] [address] [address] [address] Ayden Cam MCV (RBC) [Entitic vol] 89.1 fL Normal 81.0-99.[address] [facility] Comment on above: Performed By: #### C BC #### [facility] [address] [address] [address] Ayden Cam MONO # 0.6 103/ul Normal 0.3-0.[address] [facility] Comment on above: Performed By: #### C BC #### [facility] [address] [place] [address] Dr. Ayden Cam Monocytes/100 WBC (Bld) 10.1 % Normal 1.7-12.[address] [facility] Comment on above: Performed By: #### C BC #### [facility] [address] [place] [address] Dr. Ayden Cam NEUT # 3.1 103/ul Normal 1.4-6.[address] [facility] Comment on above: Performed By: #### C BC #### [facility] [address] [place] [address] Dr. Ayden Cam Neutrophils/100 WBC (Bld) 53.0 % Normal 43.0-75.[address] [facility] Comment on above: Performed By: #### C BC #### [facility] [address] [address] [address] Ayden Cam Platelet mean volume (Bld) [Entitic vol] 9.4 fL Critically low 9.5-13.[address] [facility] Comment on above: Performed By: #### C BC #### [facility] [address] [place] [address] Dr. Ayden Cam PLT 153 103/ul Normal 150-[address] [facility] Comment on above: Performed By: #### C BC #### [facility] [address] [place] [address] Dr. Ayden Cam RBC 4.14 106/ul Critically low 4.20-5.40 [facility] Comment on above: Performed By: #### C BC #### [facility] [address] [place] [address] Dr. Ayden Cam WBC 5.8 103/ul Normal 4.0-11.[address] [facility] Comment on above: Performed By: #### C BC #### [facility] [address] [place] [address] Dr. Ayden Cam LIPASEon 10-06-2022 Lipase [Catalytic activity/Vol] 166.0 U/L Normal 73.0-393.[address] [facility] Comment on above: Performed By: #### L IPA #### [facility] [address] [place] [address] Dr. Ayden Cam LIVER PROFILEon 10-06-2022 Albumin [Mass/Vol] 3.2 g/dL Critically low 3.4-5.0 [facility] Comment on above: Performed By: #### L IPA #### [facility] [address] [place] [address] Dr. Ayden Cam Albumin/Globulin [Mass ratio] 1.3 {ratio} Normal [facility] Comment on above: Performed By: #### L IPA #### [facility] [address] [place] [address] Dr. Ayden Cam ALP [Catalytic activity/Vol] 88 U/L Normal 46-[address] [facility] Comment on above: Performed By: #### L IPA #### [facility] [address] [place] [address] Dr. Ayden Cam ALT [Catalytic activity/Vol] 66 U/L Critically high 14-[address] [facility] Comment on above: Performed By: #### L IPA #### [facility] [address] [place] [address] Dr. Ayden Cam AST [Catalytic activity/Vol] 39 U/L Critically high 15-[address] [facility] Comment on above: Performed By: #### L IPA #### [facility] [address] [place] [address] Dr. Ayden Cam BILI, CONJUGATED 0.1 mg/dL Normal 0.0-0.2 [facility] Comment on above: Performed By: #### L IPA #### [facility] [address] [place] [address] Dr. Ayden Cam Bilirubin [Mass/Vol] 0.4 mg/dL Normal 0.2-1.[address] [facility] Comment on above: Performed By: #### L IPA #### [facility] [address] [place] [address] Dr. Ayden Cam Globulin (S) [Mass/Vol] 2.4 g/dL Normal [facility] Comment on above: Performed By: #### L IPA #### [facility] [address] [place] [address] Dr. Ayden Cam Protein [Mass/Vol] 5.6 g/dL Critically low 6.4-8.2 [facility] Comment on above: Performed By: #### L IPA #### [facility] [address] [place] [address] Dr. Ayden Cam PROF CHEM 8 (BAS METB)on Anion gap [Moles/Vol] 6.8 mmol/L Normal [facility] Comment on above: Performed By: #### L IPA #### [facility] [address] [place] [address] Dr. Ayden Cam Calcium [Mass/Vol] 8.6 mg/dL Normal 8.5-10.1 [facility] Comment on above: Performed By: #### L IPA #### [facility] [address] [place] [address] Dr. Ayden Cam Chloride [Moles/Vol] 102 mmol/L Normal 98-[address] [facility] Comment on above: Performed By: #### L IPA #### [facility] [address] [place] [address] Dr. Ayden Cam CO2 [Moles/Vol] 32.6 mmol/L Critically high 21.0-32.[address] [facility] Comment on above: Performed By: #### L IPA #### [facility] [address] [place] [address] Dr. Ayden Cam Creatinine [Mass/Vol] 0.61 mg/dL Normal 0.55-1.[address] [facility] Comment on above: Performed By: #### L IPA #### [facility] [address] [address] [address] Ayden Cam EGFR-AF MALDIVIAN >60 Normal >=60 [facility] Comment on above: Performed By: #### L IPA #### [facility] [address] [address] [address] Ayden Cam EGFR-NON AF MALDIVIAN >60 Normal >=[address] [facility] Comment on above: Performed By: #### L IPA #### [facility] [address] [address] [address] Ayden Cam Glucose [Mass/Vol] 91 mg/dL Normal 74-106 [facility] Comment on above: Performed By: #### L IPA #### [facility] [address] [address] [address] Ayden Cam Potassium [Moles/Vol] 3.4 mmol/L Critically low 3.5-5.[address] [facility] Comment on above: Performed By: #### L IPA #### [facility] [address] [address] [address] Ayden Cam Sodium [Moles/Vol] 138 mmol/L Normal 136-145 [facility] Comment on above: Performed By: #### L IPA #### [facility] [address] [address] [address] Ayden Cam Urea nitrogen [Mass/Vol] 13.0 mg/dL Normal 7.0-18.[address] [facility] Comment on above: Performed By: #### L IPA #### [facility] [address] [address] [address] Ayden Cam Urea nitrogen/Creatinine [Mass ratio] 21.3 mg/mg Normal [facility] Comment on above: Performed By: #### L IPA #### [facility] [address] [address] [address] Ayden Cam AMMONIAon 10-05-2022 Ammonia (P) [Moles/Vol] 10 umol/L Critically low 11-[address] [facility] Comment on above: Performed By: #### A MM #### [facility] [address] [place] [address] Dr. Ayden Cam AMYLASEon 10-05-2022 Amylase [Catalytic activity/Vol] 109 U/L Normal 25-[address] [facility] Comment on above: Performed By: #### A MY #### [facility] [address] [place] [address] Dr. Ayden Cam CBC AUTO DIFFon 10-05-2022 BASO # 0.0 103/ul Normal 0.0-0.[address] [facility] Comment on above: Performed By: #### L IPA #### [facility] [address] [place] [address] Dr. Ayden Cam Basophils/100 WBC (Bld) 0.3 % Normal 0.2-2.[address] [facility] Comment on above: Performed By: #### L IPA #### [facility] [address] [place] [address] Dr. Ayden Cam EO # 0.3 103/ul Normal 0.0-0.[address] [facility] Comment on above: Performed By: #### L IPA #### [facility] [address] [place] [address] Dr. Ayden Cam Eosinophils/100 WBC (Bld) 4.3 % Normal 0.9-7.[address] [facility] Comment on above: Performed By: #### L IPA #### [facility] [address] [place] [address] Dr. Ayden Cam Erythrocyte distribution width (RBC) [Ratio] 12.2 % Normal 11.0-15.[address] [facility] Comment on above: Performed By: #### L IPA #### [facility] [address] [place] [address] Dr. Ayden Cam Hematocrit (Bld) [Volume fraction] 38.9 % Normal 36.0-48.[address] [facility] Comment on above: Performed By: #### L IPA #### [facility] [address] [place] [address] Dr. Ayden Cam Hemoglobin (Bld) [Mass/Vol] 12.8 g/dL Normal 12.0-16.[address] [facility] Comment on above: Performed By: #### L IPA #### [facility] [address] [place] [address] Dr. Ayden Cam IG # 0.01 10e3/ul Normal 0.00-0.[address] [facility] Comment on above: Performed By: #### L IPA #### [facility] [address] [place] [address] Dr. Ayden Cam IG % 0.2 % Normal 0.0-0.[address] [facility] Comment on above: Performed By: #### L IPA #### [facility] [address] [place] [address] Dr. Ayden Cam LYMPH # 1.9 103/ul Normal 1.2-3.[address] [facility] Comment on above: Performed By: #### L IPA #### [facility] [address] [place] [address] Dr. Ayden Cam Lymphocytes/100 WBC (Bld) 31.4 % Normal 20.5-60.[address] [facility] Comment on above: Performed By: #### L IPA #### [facility] [address] [place] [address] Dr. Ayden Cam MANUAL DIFF REQ NO Normal [facility] Comment on above: Performed By: #### L IPA #### [facility] [address] [place] [address] Dr. Ayden Cam MCH (RBC) [Entitic mass] 29.6 pg Normal 26.7-34.[address] [facility] Comment on above: Performed By: #### L IPA #### [facility] [address] [place] [address] Dr. Ayden Cam MCHC (RBC) [Mass/Vol] 32.9 g/dL Normal 29.9-35.[address] [facility] Comment on above: Performed By: #### L IPA #### [facility] [address] [place] [address] Dr. Ayden Cam MCV (RBC) [Entitic vol] 89.8 fL Normal 81.0-99.[address] [facility] Comment on above: Performed By: #### L IPA #### [facility] [address] [address] [address] Ayden Cam MONO # 0.6 103/ul Normal 0.3-0.[address] [facility] Comment on above: Performed By: #### L IPA #### [facility] [address] [address] [address] yAden Cam Monocytes/100 WBC (Bld) 10.1 % Normal 1.7-12.[address] [facility] Comment on above: Performed By: #### L IPA #### [facility] [address] [address] [address] Ayedn Cam NEUT # 3.2 103/ul Normal 1.4-6.[address] [facility] Comment on above: Performed By: #### L IPA #### [facility] [address] [place] [address] Dr. Ayden Cam Neutrophils/100 WBC (Bld) 53.7 % Normal 43.0-75.[address] [facility] Comment on above: Performed By: #### L IPA #### [facility] [address] [address] [address] Ayden Cam Platelet mean volume (Bld) [Entitic vol] 9.7 fL Normal 9.5-13.[address] [facility] Comment on above: Performed By: #### L IPA #### [facility] [address] [address] [address] Ayden Cam PLT 168 103/ul Normal 150-[address] [facility] Comment on above: Performed By: #### L IPA #### [facility] [address] [address] [address] Ayden Cam RBC 4.33 106/ul Normal 4.20-5.[address] [facility] Comment on above: Performed By: #### L IPA #### [facility] [address] [address] [address] Ayden Cam WBC 6.0 103/ul Normal 4.0-11.[address] [facility] Comment on above: Performed By: #### L IPA #### [facility] [address] [place] [address] Dr. Ayden Cam LIPASEon 10-05-2022 Lipase [Catalytic activity/Vol] 151.0 U/L Normal 73.0-393.[address] [facility] Comment on above: Performed By: #### L IPA #### [facility] [address] [place] [address] Dr. Ayden Cam LIVER PROFILEon 10-05-2022 Albumin [Mass/Vol] 3.2 g/dL Critically low 3.4-5.0 [facility] Comment on above: Performed By: #### L ACT #### [facility] [address] [place] [address] Dr. Ayden Cam Albumin/Globulin [Mass ratio] 1.1 {ratio} Normal [facility] Comment on above: Performed By: #### L ACT #### [facility] [address] [place] [address] Dr. Ayden Cam ALP [Catalytic activity/Vol] 82 U/L Normal 46-[address] [facility] Comment on above: Performed By: #### L ACT #### [facility] [address] [place] [address] Dr. Ayden Cam ALT [Catalytic activity/Vol] 70 U/L Critically high 14-[address] [facility] Comment on above: Performed By: #### L ACT #### [facility] [address] [place] [address] Dr. Ayden Cam AST [Catalytic activity/Vol] 36 U/L Normal 15-[address] [facility] Comment on above: Performed By: #### L ACT #### [facility] [address] [place] [address] Dr. Ayden Cam BILI, CONJUGATED 0.1 mg/dL Normal 0.0-0.2 [facility] Comment on above: Performed By: #### L ACT #### [facility] [address] [place] [address] Dr. Ayden Cam Bilirubin [Mass/Vol] 0.3 mg/dL Normal 0.2-1.[address] [facility] Comment on above: Performed By: #### L ACT #### [facility] [address] [address] [address] Ayden Cam Globulin (S) [Mass/Vol] 3.0 g/dL Normal [facility] Comment on above: Performed By: #### L ACT #### [facility] [address] [address] [address] Ayden Cam Protein [Mass/Vol] 6.2 g/dL Critically low 6.4-8.2 [facility] Comment on above: Performed By: #### L ACT #### [facility] [address] [address] [address] Ayden Cam PROF CHEM 8 (BAS METB)on Anion gap [Moles/Vol] 9.5 mmol/L Normal [facility] Comment on above: Performed By: #### B MP #### [facility] [address] [place] [address] Dr. Ayden Cam Calcium [Mass/Vol] 8.9 mg/dL Normal 8.5-10.1 [facility] Comment on above: Performed By: #### B MP #### [facility] [address] [place] [address] Dr. Ayden Cam Chloride [Moles/Vol] 105 mmol/L Normal 98-[address] [facility] Comment on above: Performed By: #### B MP #### [facility] [address] [place] [address] Dr. Ayden Cam CO2 [Moles/Vol] 29.6 mmol/L Normal 21.0-32.0 [facility] Comment on above: Performed By: #### B MP #### [facility] [address] [place] [address] Dr. Ayden Cam Creatinine [Mass/Vol] 0.56 mg/dL Normal 0.55-1.[address] [facility] Comment on above: Performed By: #### B MP #### [facility] [address] [place] [address] Dr. Ayden Cam EGFR-AF MALDIVIAN >60 Normal >=60 [facility] Comment on above: Performed By: #### B MP #### [facility] [address] [address] [address] Ayden Cam EGFR-NON AF MALDIVIAN >60 Normal >=[address] [facility] Comment on above: Performed By: #### B MP #### [facility] [address] [address] [address] Ayden Cam Glucose [Mass/Vol] 88 mg/dL Normal 74-106 [facility] Comment on above: Performed By: #### B MP #### [facility] [address] [address] [address] Ayden Cam Potassium [Moles/Vol] 4.1 mmol/L Normal 3.5-5.[address] [facility] Comment on above: Performed By: #### B MP #### [facility] [address] [address] [address] Ayden Cam Sodium [Moles/Vol] 140 mmol/L Normal 136-145 [facility] Comment on above: Performed By: #### B MP #### [facility] [address] [place] [address] Dr. Ayden Cam Urea nitrogen [Mass/Vol] 15.0 mg/dL Normal 7.0-18.[address] [facility] Comment on above: Performed By: #### B MP #### [facility] [address] [place] [address] Dr. Ayden Cam Urea nitrogen/Creatinine [Mass ratio] 26.8 mg/mg Normal [facility] Comment on above: Performed By: #### B MP #### [facility] [address] [place] [address] Dr. Ayden Cam US Jhony 10-05-2022 US [...] RONAN TORIBIO Date: 2022-10-05 09:52 Normal [facility] XR KUB 1 VIEWon 10-05-2022 [...] RONAN TORIBIO Date: 2022-10-05 09:55 Normal [facility] AMYLASEon 10-04-2022 Amylase [Catalytic activity/Vol] 124 U/L Critically high 25-[address] [facility] Comment on above: Performed By: #### L IPA, COLE, CMP #### [facility] [address] [place] [address] Dr. Ayden Cam CBC AUTO DIFFon 10-04-2022 BASO # 0.0 103/ul Normal 0.0-0.[address] [facility] Comment on above: Performed By: #### L IPA #### [facility] [address] [address] [address] Ayden Cam Basophils/100 WBC (Bld) 0.3 % Normal 0.2-2.[address] [facility] Comment on above: Performed By: #### L IPA #### [facility] [address] [place] [address] Dr. Ayden Cam EO # 0.2 103/ul Normal 0.0-0.[address] [facility] Comment on above: Performed By: #### L IPA #### [facility] [address] [place] [address] Dr. Ayden Cam Eosinophils/100 WBC (Bld) 2.9 % Normal 0.9-7.[address] [facility] Comment on above: Performed By: #### L IPA #### [facility] [address] [place] [address] Dr. Ayden Cam Erythrocyte distribution width (RBC) [Ratio] 12.3 % Normal 11.0-15.[address] [facility] Comment on above: Performed By: #### L IPA #### [facility] [address] [place] [address] Dr. Ayden Cam Hematocrit (Bld) [Volume fraction] 42.0 % Normal 36.0-48.[address] [facility] Comment on above: Performed By: #### L IPA #### [facility] [address] [place] [address] Dr. Ayden Cam Hemoglobin (Bld) [Mass/Vol] 14.3 g/dL Normal 12.0-16.[address] [facility] Comment on above: Performed By: #### L IPA #### [facility] [address] [place] [address] Dr. Ayden Cam IG # 0.02 10e3/ul Normal 0.00-0.[address] [facility] Comment on above: Performed By: #### L IPA #### [facility] [address] [place] [address] Dr. Ayden Cam IG % 0.3 % Normal 0.0-0.[address] [facility] Comment on above: Performed By: #### L IPA #### [facility] [address] [place] [address] Dr. Ayden Cam LYMPH # 1.7 103/ul Normal 1.2-3.[address] [facility] Comment on above: Performed By: #### L IPA #### [facility] [address] [place] [address] Dr. Ayden Cam Lymphocytes/100 WBC (Bld) 22.5 % Normal 20.5-60.[address] [facility] Comment on above: Performed By: #### L IPA #### [facility] [address] [place] [address] Dr. Ayden Cam MANUAL DIFF REQ NO Normal [facility] Comment on above: Performed By: #### L IPA #### [facility] [address] [place] [address] Dr. Ayden Cam MCH (RBC) [Entitic mass] 30.1 pg Normal 26.7-34.[address] [facility] Comment on above: Performed By: #### L IPA #### [facility] [address] [place] [address] Dr. Ayden Cam MCHC (RBC) [Mass/Vol] 34.0 g/dL Normal 29.9-35.[address] [facility] Comment on above: Performed By: #### L IPA #### [facility] [address] [place] [address] Dr. Ayden Cam MCV (RBC) [Entitic vol] 88.4 fL Normal 81.0-99.[address] [facility] Comment on above: Performed By: #### L IPA #### [facility] [address] [place] [address] Dr. Ayden aCm MONO # 0.5 103/ul Normal 0.3-0.[address] [facility] Comment on above: Performed By: #### L IPA #### [facility] [address] [place] [address] Dr. Ayden Cam Monocytes/100 WBC (Bld) 6.0 % Normal 1.7-12.[address] [facility] Comment on above: Performed By: #### L IPA #### [facility] [address] [place] [address] Dr. Ayden Cam NEUT # 5.2 103/ul Normal 1.4-6.[address] [facility] Comment on above: Performed By: #### L IPA #### [facility] [address] [place] [address] Dr. Ayden Cam Neutrophils/100 WBC (Bld) 68.0 % Normal 43.0-75.[address] [facility] Comment on above: Performed By: #### L IPA #### [facility] [address] [address] [address] Ayden Cam Platelet mean volume (Bld) [Entitic vol] 9.6 fL Normal 9.5-13.[address] [facility] Comment on above: Performed By: #### L IPA #### [facility] [address] [place] [address] Dr. Ayden Cam PLT 183 103/ul Normal 150-[address] [facility] Comment on above: Performed By: #### L IPA #### [facility] [address] [place] [address] Dr. Ayden Cam RBC 4.75 106/ul Normal 4.20-5.[address] [facility] Comment on above: Performed By: #### L IPA #### [facility] [address] [place] [address] Dr. Ayden Cam WBC 7.6 103/ul Normal 4.0-11.[address] [facility] Comment on above: Performed By: #### L IPA #### [facility] [address] [place] [address] Dr. Ayden Cam [facility]on SARS-CoV-2 (COVID-19) RNA LOWELL+probe Ql (Unsp spec) Not detected Normal NOT DETECTED [facility] Comment on above: Result Comment: [...] for this test is supported by the [employer] and Human Service's declaration that [...] used). Performed By: #### L IPA #### [facility] [address] [place] [address] Dr. Ayden Cam ER URINE PROFILEon 3 Bilirubin Ql (U) Negative Normal NEGATIVE [facility] Comment on above: Performed By: #### L ACT #### [facility] [address] [place] [address] Dr. Ayden Cam Clarity (U) CLEAR Normal CLEAR [facility] Comment on above: Performed By: #### L ACT #### [facility] [address] [place] [address] Dr. Ayden Cam Color (U) LT. YELLOW Normal YELLOW [facility] Comment on above: Performed By: #### L ACT #### [facility] [address] [place] [address] Dr. Ayden Cam ERUAHD A micrscopic examina tion will be performed if indicated. Normal [facility] Comment on above: Performed By: #### L ACT #### [facility] [address] [place] [address] Dr. Ayden Cam Glucose Ql (U) Negative Normal NEGATIVE [facility] Comment on above: Performed By: #### L ACT #### [facility] [address] [place] [address] Dr. Ayden Cam Hemoglobin Ql (U) Negative Normal NEGATIVE [facility] Comment on above: Performed By: #### L ACT #### [facility] [address] [place] [address] Dr. Ayden Cam Ketones Ql (U) Negative Normal NEGATIVE [facility] Comment on above: Performed By: #### L ACT #### [facility] [address] [place] [address] Dr. Ayden Cam LEUKOCYTES Negative Normal NEGATIVE [facility] Comment on above: Performed By: #### L ACT #### [facility] [address] [place] [address] Dr. Ayden Cam Nitrite Ql (U) Negative Normal NEGATIVE [facility] Comment on above: Performed By: #### L ACT #### [facility] [address] [place] [address] Dr. Ayden Cam pH (U) 8.5 [pH] Normal 5-[address] [facility] Comment on above: Performed By: #### L ACT #### [facility] [address] [place] [address] Dr. Ayden Cam SPEC GRAVITY 1.015 Normal 1.005-<=1.[address] [facility] Comment on above: Performed By: #### L ACT #### [facility] [address] [place] [address] Dr. Ayden Cam UA PROTEIN Negative Normal NEGATIVE/ TRACE [facility] Comment on above: Performed By: #### L ACT #### [facility] [address] [place] [address] Dr. Ayden Cam UR MICRO IND NOT INDICATED Normal [facility] Comment on above: Performed By: #### L ACT #### [facility] [address] [place] [address] Dr. Ayden Cam Urobilinogen Qn (U) 0.2 {Peggy'U}/dL Normal 0.2 - 1. [address] [facility] Comment on above: Performed By: #### L ACT #### [facility] [address] [place] [address] Dr. Ayden Cam LACTATE/LACTIC ACIDon 2022 Lactate [Moles/Vol] 0.8 mmol/L Normal 0.4-1.9 [facility] Comment on above: Performed By: #### L ACT #### [facility] [address] [place] [address] Dr. Ayden Cam LIPASEon 10-04-2022 Lipase [Catalytic activity/Vol] 170.0 U/L Normal 73.0-393.[address] [facility] Comment on above: Performed By: #### L ACT #### [facility] [address] [place] [address] Dr. Ayden Cam PROF 14(COMP METB)on 023 Albumin [Mass/Vol] 3.8 g/dL Normal 3.4-5.0 [facility] Comment on above: Performed By: #### L ACT #### [facility] [address] [address] [address] Ayden Cam Albumin/Globulin [Mass ratio] 1.1 {ratio} Normal [facility] Comment on above: Performed By: #### L ACT #### [facility] [address] [address] [address] Ayden Cam ALP [Catalytic activity/Vol] 101 U/L Normal 46-[address] [facility] Comment on above: Performed By: #### L ACT #### [facility] [address] [address] [address] Ayden Cam ALT [Catalytic activity/Vol] 94 U/L Critically high 14-[address] [facility] Comment on above: Performed By: #### L ACT #### [facility] [address] [place] [address] Dr. Ayden Cam Anion gap [Moles/Vol] 11.1 mmol/L Normal [facility] Comment on above: Performed By: #### L ACT #### [facility] [address] [place] [address] Dr. Ayden Cam AST [Catalytic activity/Vol] 59 U/L Critically high 15-[address] [facility] Comment on above: Performed By: #### L ACT #### [facility] [address] [place] [address] Dr. Ayden Cam Bilirubin [Mass/Vol] 0.3 mg/dL Normal 0.2-1.[address] [facility] Comment on above: Performed By: #### L ACT #### [facility] [address] [address] [address] Ayden Cam Calcium [Mass/Vol] 9.5 mg/dL Normal 8.5-10.1 [facility] Comment on above: Performed By: #### L ACT #### [facility] [address] [place] [address] Dr. Ayden Cam Chloride [Moles/Vol] 99 mmol/L Normal 98-[address] [facility] Comment on above: Performed By: #### L ACT #### [facility] [address] [place] [address] Dr. Ayden Cam CO2 [Moles/Vol] 29.7 mmol/L Normal 21.0-32.0 [facility] Comment on above: Performed By: #### L ACT #### [facility] [address] [address] [address] Ayden Cam Creatinine [Mass/Vol] 0.61 mg/dL Normal 0.55-1.[address] [facility] Comment on above: Performed By: #### L ACT #### [facility] [address] [address] [address] Ayden Cam EGFR-AF MALDIVIAN >60 Normal >=60 [facility] Comment on above: Performed By: #### L ACT #### [facility] [address] [place] [address] Dr. Ayden Cam EGFR-NON AF MALDIVIAN >60 Normal >=[address] [facility] Comment on above: Performed By: #### L ACT #### [facility] [address] [address] [address] Ayden Cam Globulin (S) [Mass/Vol] 3.4 g/dL Normal [facility] Comment on above: Performed By: #### L ACT #### [facility] [address] [address] [address] Ayden Cam Glucose [Mass/Vol] 111 mg/dL Critically high 74-106 [facility] Comment on above: Performed By: #### L ACT #### [facility] [address] [address] [address] Ayden Cam Potassium [Moles/Vol] 3.8 mmol/L Normal 3.5-5.[address] [facility] Comment on above: Performed By: #### L ACT #### [facility] [address] [address] [address] Ayden Cam Protein [Mass/Vol] 7.2 g/dL Normal 6.4-8.2 [facility] Comment on above: Performed By: #### L ACT #### [facility] [address] [address] [address] Ayden Cam Sodium [Moles/Vol] 136 mmol/L Normal 136-145 [facility] Comment on above: Performed By: #### L ACT #### [facility] [address] [address] [address] Ayden Cam Urea nitrogen [Mass/Vol] 23.0 mg/dL Critically high 7.0-18.[address] [facility] Comment on above: Performed By: #### L ACT #### [facility] [address] [address] [address] Ayden Cam Urea nitrogen/Creatinine [Mass ratio] 37.7 mg/mg Normal [facility] Comment on above: Performed By: #### L ACT #### [facility] [address] [address] [address] Ayden Cam TROPONIN, HIGH SENSITIVITYon 10-04-2022 HSTROP 8.9 pg/mL Normal 4.0-51.[address] [facility] Comment on above: Result Comment: CUT- OFF POINTS HAVE BEEN ESTABLISHED BASED ON THE FOURTH UNIVERSAL DEFINITIONS OF MYOCARDIAL INFARCTION. THE UPPER REFERENCE LIMIT (URL) OF TROPONIN, DEFINED THE 99TH PERCENTILE OF cTnI DISTRIBUTION IN A REFERENCE POPULATION, HAS BEEN CONFIRMED THE DECISION THRESHOLD FOR [place] DIAGNOSIS. Performed By: #### L ACT #### [facility] [address] [place] [address] Dr. Ayden Cam LIPID PROFILEon 09-19-2022 CHOL-HDL RATIO NORM SEE BELOW Normal [facility] Comment on above: Result Comment: 3.3 - 4.4 LOW RISK 4.4 - 7.1 AVERAGE RISK 7.1 - 11.0 MODERATE RISK >11.0 HIGH RISK Performed By: #### L IPA #### [facility] [address] [place] [address] Dr. Ayedn Cam Cholesterol [Mass/Vol] 116 mg/dL Normal <=[address] [facility] Comment on above: Performed By: #### L IPA #### [facility] [address] [address] [address] Ayden Cam Cholesterol in HDL [Mass/Vol] 59 mg/dL Normal 40-[address] [facility] Comment on above: Performed By: #### L IPA #### [facility] [address] [address] [address] Ayden Cam Cholesterol in LDL [Mass/Vol] 34.0 mg/dL Normal [facility] Comment on above: Performed By: #### L IPA #### [facility] [address] [address] [address] Ayden Cam Cholesterol.total/Cho lesterol in HDL [Mass ratio] 2.0 {ratio} Normal [facility] Comment on above: Performed By: #### L IPA #### [facility] [address] [address] [address] Ayden Cam HDL NORMAL > or = 60 mg/dl - LO W CARDIOVASCULAR RISK <40 mg/dl - HIGH CARDIOVASCULAR RISK Normal [facility] Comment on above: Performed By: #### L IPA #### [facility] [address] [place] [address] Dr. Ayden Cam LDL CALC NORMAL SEE BELOW Normal [facility] Comment on above: Result Comment: <100 mg/dl OPTIMAL 100 - 129 mg/dl NEAR OR ABOVE OPTIMAL 130 - 159 mg/dl BORDERLINE HIGH 160 - 189 mg/dl HIGH >190 mg/dl VERY HIGH Performed By: #### L IPA #### [facility] [address] [place] [address] Dr. Ayden Cam Triglyceride [Mass/Vol] 115 mg/dL Normal <=[address] [facility] Comment on above: Performed By: #### L IPA #### [facility] [address] [place] [address] Dr. Ayden Cam VLDL CALC 23.0 mg/dL Normal [facility] Comment on above: Performed By: #### L IPA #### [facility] [address] [place] [address] Dr. Ayden Cam VITAMIN D 25 OHon 09-19-2022 VIT D 25-OH 89.3 ng/mL Normal [facility] Comment on above: Performed By: #### V ITAD #### [facility] [address] [place] [address] Dr. Ayden Cam VIT D RANGES SEE BELOW Normal [facility] Comment on above: Result Comment: <20 ng/mL Vit D deficient 20 - <30 ng/mL Vit D insufficient 30 - 100 ng/mL Vit D sufficient >100 ng/mL Potential Toxicity Performed By: #### V ITAD #### [facility] [address] [address] [address] Ayden Cam Office Visit (Cardiology)on 08-15-2022 Follow-up visit Diagnoses/Problems Assessed Atherosclerosis of coronary artery of [place] heart without angina pectoris (414.01) (I25.10) History of coronary artery bypass graft (V45.81) (Z95.1) Ischemic cardiomyopathy (414.8) (I25.5) Hyperlipidemia (272.4) (E78.5) Essential hypertension, benign (401.1) (I10) Never a smoker Overweight with body mass index (BMI) of 26 to 26.9 in adult (278.02,V85.22) (E66.3,Z68.26) Paroxysmal SVT (supraventricular tachycardia) (427.0) (I47.1) Orders Atherosclerosis of coronary artery of [place] heart without angina pectoris, Essential hypertension, benign, Hyperlipidemia Basic Metabolic Panel; Status:Active - Retrospective Authorization; Requested for:[id number]; Lipid Panel; Status:Active - Retrospective Authorization; Requested for:[id number]; Overweight with body mass index (BMI) of 26 to 26.9 in adult Healthy Weight Tips; Status:Complete - Retrospective Authorization; Done: [id number] Some eating tips that can help you lose weight.; Status:Complete - Retrospective Authorization; Done: [id number] SocHx: Never a smoker Tobacco Use Screening; Status:Complete; Done: [id number] Patient Instructions Please bring all medicines, vitamins, [...] She has a history of prior inferior [place], prior PCI with subsequent three-vessel CABG and [...] CHEST PAIN.CALL 911 IF PAIN PERSISTS. Nyamyc [id number] UNIT/GM External Powderapply topically to affected area [...] Tobacco Screening.on Adult depression screening assessment No [facility] [employer] [place] y 250 DO Work Phone: Fall risk assessment a) No falls within the last year [facility] [employer] y 250 DO Work Phone: Tobacco use status [facility] b) No [facility] [employer] [place] y 250 DO Work Phone: MRI Ankle [...] by Wilder Arango on 08/01/2022 1102 Normal [facility] [employer] Tobacco Screening.on 021 Tobacco use status [facility] b) No -[facility] y 250 DO Work Phone: Vital Signs Date Time Vital Sign Value Performing Clinician Facility 09-05-2024 09:53-0500 Body height 160 cm Celso Garibay DO Work Phone: [facility] 09-05-2024 09:53-0500 Body mass index (BMI) [Ratio] 30.11 kg/m2 Celso Garibay DO Work Phone: [facility] 09-05-2024 09:53-0500 Body weight 77.11 kg Celso Garibay DO Work Phone: [facility] 09-05-2024 09:53-0500 Diastolic blood pressure 80 mm[Hg] Celso Garibay DO Work Phone: [facility] 09-05-2024 09:53-0500 Heart rate 66 /min Celso Garibay DO Work Phone: [facility] 09-05-2024 09:53-0500 Systolic blood pressure 118 mm[Hg] Celso Phoenix DO Work Phone: [facility] 08-19-2024 01:03-0500 Diastolic blood pressure 69 mm[Hg] Ashley Grigsby MD Work Phone: [facility] 08-19-2024 01:03-0500 Heart rate 60 /min Ashley Grigsby MD Work Phone: [facility] 08-19-2024 01:03-0500 Respiratory rate 20 /min Ashley Grigsby MD Work Phone: [facility] 08-19-2024 01:03-0500 SaO2% (BldA) [Mass fraction] 96 % Ashley Grigsby MD Work Phone: [facility] 08-19-2024 01:03-0500 Systolic blood pressure 130 mm[Hg] Ashley Grigsby MD Work Phone: [facility] 08-18-2024 20:55-0500 Body height 160.02 cm Ashley Grigsby MD Work Phone: [facility] 08-18-2024 20:55-0500 Body temperature 97.4 [degF] Ashley Grigsby MD Work Phone: [facility] 08-18-2024 20:55-0500 Body weight 78.5 kg Ashley Grigsby MD Work Phone: [facility] 08-13-2024 12:21-0500 Body height 160 cm Celso Garibay DO Work Phone: [facility] 08-13-2024 12:21-0500 Body mass index (BMI) [Ratio] 30.47 kg/m2 Celso Garibay DO Work Phone: [facility] 08-13-2024 12:21-0500 Body weight 78.02 kg Celso Garibay DO Work Phone: [facility] 08-13-2024 12:21-0500 Diastolic blood pressure 94 mm[Hg] Celso Garibay DO Work Phone: [facility] 08-13-2024 12:21-0500 Heart rate 76 /min Celso Garibay DO Work Phone: [facility] 08-13-2024 12:21-0500 Systolic blood pressure 138 mm[Hg] Celso Garibay DO Work Phone: [facility] 08-05-2024 11:08-0500 Blood Pressure Location JENNIFER MARTINO [facility] 08-05-2024 11:08-0500 Body temperature 98.6 [degF] [place] [facility] 08-05-2024 11:08-0500 Diastolic blood pressure 80 mm[Hg] [place] [facility] 08-05-2024 11:08-0500 Heart rate 68 /min [place] [facility] 08-05-2024 11:08-0500 Respiratory rate 16 /min [place] [facility] 08-05-2024 11:08-0500 Systolic blood pressure 131 mm[Hg] [place] [facility] 04-10-2024 15:08-0400 Blood Pressure Location [place] [facility] 04-10-2024 15:08-0400 Diastolic blood pressure 80 mm[Hg] [place] [facility] 04-10-2024 15:08-0400 Heart rate 75 /min [place] [facility] 04-10-2024 15:08-0400 Respiratory rate 16 /min [place] [facility] 04-10-2024 15:08-0400 Systolic blood pressure 131 mm[Hg] [place] [facility] 08-14-2023 15:29-0500 Body height 161.3 cm Celso Garibay DO Work Phone: [facility] 08-14-2023 15:29-0500 Body mass index (BMI) [Ratio] 28.07 kg/m2 Celso Garibay DO Work Phone: [facility] 08-14-2023 15:29-0500 Body weight 73.03 kg Celso Garibay DO Work Phone: [facility] 08-14-2023 15:29-0500 Diastolic blood pressure 80 mm[Hg] Celso Garibay DO Work Phone: [facility] 08-14-2023 15:29-0500 Heart rate 56 /min Celso Garibay DO Work Phone: [facility] 08-14-2023 15:29-0500 Systolic blood pressure 138 mm[Hg] Celso Garibay DO Work Phone: [facility] 06-18-2023 15:15-0400 Diastolic blood pressure 78 mm[Hg] Gaby Tello DO Work Phone: [facility] 06-18-2023 15:15-0400 Heart rate 70 /min Gaby Tello DO Work Phone: [facility] 06-18-2023 15:15-0400 Respiratory rate 18 /min Gaby Novoag DO Work Phone: [facility] 06-18-2023 15:15-0400 SaO2% (BldA) [Mass fraction] 96 % Gaby Novoag DO Work Phone: [facility] 06-18-2023 15:15-0400 Systolic blood pressure 173 mm[Hg] Gaby Novoag DO Work Phone: [facility] 06-18-2023 14:36-0400 Body temperature 97 [degF] Gaby Novoag DO Work Phone: [facility] 06-18-2023 13:30-0400 Body height 160 cm Gaby Tello DO Work Phone: [facility] 06-18-2023 13:30-0400 Body mass index (BMI) [Ratio] 27.03 kg/m2 Gaby Tello DO [facility] Phone[facility] 06-18-2023 13:30-0400 Body weight 69.22 kg Gaby Tello DO Work Phone: [facility] 11-02-2022 15:02-0500 Diastolic blood pressure 84 mm[Hg] MD Ashley Grigsby Work Phone: [facility] 11-02-2022 15:02-0500 Heart rate 78 /min MD Ashley Grigsby Work Phone: [facility] 11-02-2022 15:02-0500 Respiratory rate 18 /min MD Ashley Grigsby Work Phone: [facility] 11-02-2022 15:02-0500 SaO2% (BldA) [Mass fraction] 100 % MD Ashley Grigsby Work Phone: [facility] 11-02-2022 15:02-0500 Systolic blood pressure 161 mm[Hg] MD Ashley Grigsby Work Phone: [facility] 11-02-2022 13:20-0500 Body height 160.02 cm MD Ashley Grigsby Work Phone: [facility] 11-02-2022 13:20-0500 Body temperature 98.2 [degF] MD Ashley Grigsby Work Phone: [facility] 11-02-2022 13:20-0500 Body weight 60.78 kg MD Ashley Grigsby Work Phone: [facility] 11-01-2022 13:26-0500 Diastolic blood pressure 61 mm[Hg] MD Ashley Grigsby Work Phone: [facility] 11-01-2022 13:26-0500 Heart rate 59 /min MD Ashley Grigsby Work Phone: [facility] 11-01-2022 13:26-0500 Respiratory rate 20 /min MD Ashley Grigsby Work Phone: [facility] 11-01-2022 13:26-0500 SaO2% (BldA) [Mass fraction] 99 % MD Ashley Grigsby Work Phone: [facility] 11-01-2022 13:26-0500 Systolic blood pressure 124 mm[Hg] MD Ashley Grigsby Work Phone: [facility] 11-01-2022 10:53-0500 Body height 160.02 cm MD Ashley Grigsby Work Phone: [facility] 11-01-2022 10:53-0500 Body temperature 97.7 [degF] MD Ashley Grigsby Work Phone: [facility] 11-01-2022 10:53-0500 Body weight 61.68 kg MD Ashley Grigsby Work Phone: [facility] 10-24-2022 15:45-0500 Body height 159.38 cm Imad Asaad Other [employer] Other 10-24-2022 15:45-0500 Body mass index (BMI) [Ratio] 24.28 kg/m2 Imad Asaad Other [employer] Other 10-24-2022 15:45-0500 Body weight 61.69 kg Imad Asaad Other [employer] Other 10-24-2022 15:45-0500 Diastolic blood pressure 94 mm[Hg] Imad Asaad Other [employer] Other 10-24-2022 15:45-0500 Systolic blood pressure 133 mm[Hg] Imad Asaad Other [employer] Other 09-19-2022 00:00-0500 34 1 Ashley M Hoy Work Phone: [facility] DO Work Phone: Comment on above: [employer] 08-15-2022 15:23-0500 Body height 160.02 cm Ashley M Hoy Work Phone: [facility] [facility] DO Work Phone: 08-15-2022 15:23-0500 Body mass index (BMI) [Ratio] 26.22 kg/m2 Ashley M Hoy Work Phone: [facility] [facility] DO Work Phone: 08-15-2022 15:23-0500 Body surface area Derived from formula 1.7 m2 Ashley M Hoy Work Phone: [facility] DO Work Phone: 08-15-2022 15:23-0500 Body weight 67.13 kg Ashley M Hoy Work Phone: [facility] [facility] DO Work Phone: 08-15-2022 15:23-0500 Diastolic blood pressure 82 mm[Hg] Ashley M Hoy Work Phone: [facility] DO Work Phone: 08-15-2022 15:23-0500 Heart rate 80 /min Ashley M Hoy Work Phone: [facility] [facility] DO Work Phone: 08-15-2022 15:23-0500 Systolic blood pressure 132 mm[Hg] Ashley M Hoy Work Phone: [facility] [facility] DO Work Phone: 06-02-2022 08:12-0400 Blood Pressure Location Santiago CARRILLO [facility] [place] [address]-02-2022 08:12-0400 Diastolic blood pressure 86 mm[Hg] Santiago CARRILLO [facility] 06-02-2022 08:12-0400 Heart rate 60 /min Santiago CARRILLO [facility] 06-02-2022 08:12-0400 Respiratory rate 16 /min Santiago CARRILLO [facility] 06-02-2022 08:12-0400 Systolic blood pressure 144 mm[Hg] Santiago CARRILLO [facility] 08-17-2021 09:47-0500 Body height 160.02 cm Ashley M Hoy Work Phone: [facility] DO Work Phone: 08-17-2021 09:47-0500 Body mass index (BMI) [Ratio] 25.01 kg/m2 Ashley M Hoy Work Phone: [facility] DO Work Phone: 08-17-2021 09:47-0500 Body surface area Derived from formula 1.67 m2 Ashley M Hoy Work Phone: [facility] DO Work Phone: 08-17-2021 09:47-0500 Body weight 64.05 kg Ashley M Hoy Work Phone: [facility] [facility] DO Work Phone: 08-17-2021 09:47-0500 Diastolic blood pressure 86 mm[Hg] Ashley M Hoy Work Phone: [facility] DO Work Phone: 08-17-2021 09:47-0500 Heart rate 72 /min Ashley M Hoy Work Phone: [facility] [facility] DO Work Phone: 08-17-2021 09:47-0500 Systolic blood pressure 134 mm[Hg] Ashley Tyree Seb Work Phone: [facility] [facility] DO Work Phone: Encounters Encounter Date Encounter Type Care Provider Facility Start: 09-05-2024 End: 09-05-2024 ambulatory [facility] Start: 09-05-2024 End: 09-05-2024 Transitional care manage srvc 14 day discharge [facility] DO Work Phone: [facility] Comment on above: Atherosclerosis of c oronary artery bypass graft of [place] without angina pectoris; S/P PTCA (percutaneous transluminal coronary angioplasty); History of coronary artery bypass graft; Ischemic cardiomyopathy; Essential hypertension; Mixed hyperlipidemia; BMI 30.0-30.9,adult; Statin intolerance Start: 08-20-2024 End: 08-22-2024 Evaluation and management of inpatient Donis Arroyo Facility:[facility] Start: 08-18-2024 Evaluation and management of inpatient Ashley Grigsby MD Work Phone: [facility] [place] [facility] Work Phone: Start: 08-18-2024 observation encounter Ashley Grigsby MD Work Phone: [facility] Work Phone: Start: 08-13-2024 End: 08-13-2024 ambulatory [facility] Start: 08-13-2024 End: 08-13-2024 Office outpatient [facility] Work [facility]: [facility] Comment on above: Atherosclerosis of c oronary artery of [place] without angina pectoris, unspecified vessel or lesion type; History of coronary artery bypass graft; Essential hypertension, benign; Hyperlipidemia, unspecified hyperlipidemia type; Acute pancreatitis, unspecified complication status, unspecified pancreatitis type ([facility] Start: 08-05-2024 End: 08-05-2024 ambulatory BARRY MARTINO Facility:[facility] Start: 08-05-2024 End: 08-05-2024 Patient encounter procedure JENNIFER MARTINO [facility] Start: 04-10-2024 End: 04-10-2024 ambulatory PA-C JENNIFER MARTINO Facility:[facility] Start: 04-10-2024 End: 04-10-2024 Patient encounter procedure JENNIFER MARTINO [facility] Start: 03-11-2024 End: 03-11-2024 ambulatory PA-C JENNIFER MARTINO Facility:[facility] Start: 03-11-2024 End: 03-11-2024 Patient encounter procedure JENNIFER MARTINO [facility] Start: 03-07-2024 End: 03-07-2024 Evaluation and management of inpatient ASHLEIGH LETHA [facility] Start: 03-06-2024 End: 03-07-2024 Evaluation and management of inpatient [facility] Start: 03-06-2024 End: 03-06-2024 Evaluation and management of inpatient [facility] Start: 02-29-2024 End: 02-29-2024 Evaluation and management of inpatient ASHLEY M SEB [facility] Start: 02-27-2024 ambulatory [facility] Start: 02-27-2024 End: 02-27-2024 ambulatory [facility] Start: 01-17-2024 End: 01-17-2024 ambulatory STEPHANIE BERGER [facility] Start: 09-13-2023 End: 09-13-2023 ambulatory ALINA JAVIER Not Available Start: 08-14-2023 End: 08-14-2023 Office outpatient visit 15 minutes Celso Garibay DO Work Phone: [facility] Comment on above: Atherosclerosis of c oronary artery of [place] without angina pectoris, unspecified vessel or lesion type; History of coronary artery bypass graft; Ischemic cardiomyopathy; Essential hypertension, benign Start: 06-18-2023 End: 06-18-2023 ambulatory GABY TELLO [facility] Start: 06-18-2023 End: 06-18-2023 Subsequent hospital visit by physician Gaby Tello DO Work Phone: [facility] Comment on above: Post-menopausal blee ding; Inclusion cyst Start: 05-24-2023 Rx Renewal Ashley Grigsby Work Phone: [facility] [facility] DO Work Phone: Start: 05-17-2023 Patient encounter procedure Ashley Grigsby Work Phone: [facility] 250 DO Work Phone: Start: 05-15-[address] [facility] Start: 12-12-2022 End: 12-12-2022 ambulatory MD Ashley Grigsby Work Phone: [facility] Work Phone: Start: 12-12-2022 End: 12-12-2022 Patient encounter procedure MD Ashley Grigsby Work Phone: [facility] Work Phone: Start: 11-20-2022 End: 11-20-2022 ambulatory Imad Asaad Other [facility] Other Start: 11-20-2022 Telephone encounter Imad Asaad [facility] Start: 11-10-2022 End: 11-10-2022 Patient encounter procedure MD Ashley Grigsby Work Phone: [facility] [place] Work Phone: Start: 11-02-2022 End: 11-02-2022 Admission to same day surgery center MD Ashley Grigsby Work Phone: [facility] Work Phone: Start: 11-02-2022 End: 11-02-2022 ambulatory MD Ashley Grigsby Work Phone: [facility] Work Phone: Start: 11-01-2022 Telephone encounter Imad Asaad [facility] Start: 11-01-2022 End: 11-01-2022 Admission to same day surgery center MD Ashley Grigsby Work Phone: [facility] Work Phone: Start: 11-01-2022 End: 11-01-2022 ambulatory MD Ashley Grigsby Work Phone: [facility] Work Phone: Start: 10-24-2022 End: 10-24-2022 ambulatory Imad Asaad Other [facility] Other Start: 10-24-2022 [facility] visit new patient Imad Asaad [facility] Start: 10-16-2022 End: 10-17-[address] ASHLEY GRIGSBY Facility:[facility] Start: 10-09-2022 End: 10-10-[address] ASHLEY GRIGSBY Facility:[facility] Start: 10-05-2022 Rx Renewal Ashley Grigsby Work Phone: [facility] [facility] DO Work Phone: Start: 10-04-2022 End: 10-06-[address] ASHLEY GRIGSBY Facility:[facility] Start: 09-19-2022 End: 09-20-[address] DOCTOR PATEL Facility:[facility] Start: 08-15-2022 Office outpatient vi sit 15 minutes Ashley Grigsby Work Phone: [facility] DO Work Phone: Start: 08-15-2022 Patient encounter procedure Ashley Grigsby Work Phone: [facility] [facility] DO Work Phone: Start: 06-02-2022 End: 06-02-2022 Patient encounter procedure Santiago CARRILLO [facility] Start: 05-31-2022 Rx Renewal Ashley Grigsby Work Phone: [facility] [facility] DO Work Phone: Start: 02-07-2022 End: 02-07-2022 Patient encounter procedure Ashley Grigsby MD Work Phone: [facility] Laboratory Start: 02-07-2022 End: 02-07-2022 Subsequent hospital visit by physician Ashley Grigsby MD Work Phone: [facility] Comment on above: Women's annual routi ne gynecological examination Start: 11-21-2021 Rx Renewal Ashley Grigsby Work Phone: [facility] [facility] DO Work Phone: Start: 08-17-2021 Office outpatient vi sit 15 minutes Ashley Grigsby Work Phone: [facility] [facility] DO Work Phone: Start: 08-19-2019 End: 08-19-2019 Subsequent [facility] visit [facility] physician [facility] Comment on above: Well female exam [...] Screening for malignant neoplasm of colon [facility] Start: 02-07-2027 Screening for malignant neoplasm of cervix [facility] Start: 08-18-2025 End: 08-18-2025 Patient encounter procedure 08/18/2025 11:20 AM EST Office Visit [facility] [address] [place] [address] Celso Garibay DO [address] [place] [address] [facility] Start: 08-03-2025 End: 08-13-2025 Alanine aminotransferase [Enzymatic activity/volume] in Serum or Plasma by With P-5'-P Alanine Aminotransferase Lab Routine Hyperlipidemia, unspecified hyperlipidemia type Expected: 08/03/2025 (Approximate), Expires: 08/13/2025 [facility] Service Area Work Phone: Comment on above: Expected: 08/03/2025 (Approximate), Expi res: 08/13/2025 Start: 08-03-2025 End: 08-13-2025 Aspartate aminotransferase [Enzymatic activity/volume] in Serum or Plasma by With P-5'-P Aspartate Aminotransferase Lab Routine Hyperlipidemia, unspecified hyperlipidemia type Expected: 08/03/2025 (Approximate), Expires: 08/13/2025 [facility] Work Phone: Comment on above: Expected: 08/03/2025 (Approximate), Expi res: 08/13/2025 Start: 08-03-2025 End: 08-13-2025 Lipid 1996 panel - Serum or Plasma Lipid Panel Lab Routine Hyperlipidemia, unspecified hyperlipidemia type Expected: 08/03/2025 (Approximate), Expires: 08/13/2025 [facility] Work Phone: Comment on above: Expected: 08/03/2025 (Approximate), Expi res: 08/13/2025 Start: 03-17-2025 End: 03-17-2025 Patient encounter procedure 03/17/2025 2:40 PM EDT Office Visit [facility] [address] [place] [address] Celso Garibay, [address] [place] [address] [facility] Start: 02-07-2025 Screening for malignant neoplasm of cervix [facility] Start: 08-19-2024 Screening for malignant neoplasm of cervix [facility] Start: 08-19-2024 [facility] Start: 08-19-2024 Referral to operations general agent [facility] Start: 08-19-2024 [facility] Start: 08-18-2024 Hospital admission [facility] Start: 08-15-2024 Screening for malignant neoplasm of breast Mammogram [facility] Start: 08-13-2024 End: 08-13-2024 Patient encounter procedure 08/13/2024 11:30 AM EST Office Visit [facility] [address] [place] [address] Celso Garibay, DO [address] [place] [address] [facility] Start: 2024 RSV High Risk: (Elderly (60+) or Population) (1 - Risk 60-74 years 1-dose series) RSV High Risk: (Elderly (60+) or Population) (1 - Risk 60-74 years 1-dose series) [facility] Start: 06-01-2024 COVID-19 Vaccine ( season) COVID-19 Vaccine ( season) [facility] Start: 02-14-2024 Depression Screen Depression Screen [facility] Start: 02-12-2024 End: 08-14-2024 Alanine aminotransferase [Enzymatic activity/volume] in Serum or Plasma by With P-5'-P Alanine Aminotransferase Lab Routine History of coronary artery bypass graft Ischemic cardiomyopathy Expected: 02/12/2024 (Approximate), Expires: 08/14/2024 [facility] Work Phone: Comment on above: Expected: 02/12/2024 (Approximate), Expi res: 08/14/2024 Start: 02-12-2024 End: 08-14-2024 Aspartate aminotransferase [Enzymatic activity/volume] in Serum or Plasma by With P-5'-P Aspartate Aminotransferase Lab Routine Atherosclerosis of coronary artery of [place] without angina pectoris, unspecified vessel or lesion type Ischemic cardiomyopathy Expected: 02/12/2024 (Approximate), Expires: 08/14/2024 [facility] Work Phone: Comment on above: Expected: 02/12/2024 (Approximate), Expi res: 08/14/2024 Start: 02-12-2024 End: 08-14-2024 Lipid 1996 panel - Serum or Plasma Lipid Panel Lab Routine Atherosclerosis of coronary artery of [place] without angina pectoris, unspecified vessel or lesion type Expected: 02/12/2024 (Approximate), Expires: 08/14/2024 [facility] Service Area Work Phone: Comment on above: Expected: 02/12/2024 (Approximate), Expi res: 08/14/2024 Start: 08-14-2023 FUV, Provider: Celso Garibay, Status: Pen, Time: 3:00 PM [facility]UV, Provider: Celso Garibay, Status: Pen, Time: 3:00 PM [facility] Work Phone: Start: 07-28-2023 Screening for malignant neoplasm of breast Breast cancer screen [facility] Start: 07-24-2023 Screening for malignant neoplasm of breast Mammogram [facility] Start: 07-03-2023 End: 07-03-2023 Patient encounter procedure 07/03/2023 4:45 PM EDT Office Visit [facility] [address] [place] [address] Gaby Phillips, DO [address] [place] [address] post-op BA 05/16 [facility] Comment on above: post-op BA 05/16 Start: 06-18-2023 End: 06-18-2023 Hysteroscopy bx endometrium&/polypc w/wo d&c DILATATION AND CURETTAGE HYSTEROSCOPY Post-menopausal bleeding Inclusion cyst 06/18/2023 2:01 PM EDT [facility] Start: 02-13-2023 End: 02-13-2023 Patient encounter procedure 02/13/2023 Office Visit Obstetrics and Gynecology Gaby Phillips, DO [address] [place] [address] [facility] Start: 12-12-2022 [facility] Start: 11-02-2022 [facility] Start: 11-01-2022 [facility] Start: 08-19-2022 Screening for malignant neoplasm of cervix Pap smear [facility] Start: 08-15-2022 FUV, Provider: Celso Garibay, Status: Pen, Time: 3:00 PM FUV, Provider: Celso Garibay, Status: Pen, [facility]: 3:00 [facility] Work Phone: Start: 08-03-2022 Lipid panel Lipids [facility] Start: 12-27-2021 COVID-19 Vaccine (4 - Pfizer series) COVID-19 Vaccine (4 - Pfizer series) [facility] RODRIGUE[facility] Start: 06-01-2019 Influenza vaccination Flu vaccine (#1) [place], [place] Start: 05-09-2018 Pneumococcal Vaccine: Pediatrics (0 to 5 Years) and At-Risk Patients (6 to 64 Years) (2 - PCV) Pneumococcal Vaccine: Pediatrics (0 to 5 Years) and At-Risk Patients (6 to 64 Years) (2 - PCV) [facility] Start: 05-09-2018 Pneumococcal Vaccine: Pediatrics (0 to 5 Years) and At-Risk Patients (6 to 64 Years) (2 of 2 - PCV) Pneumococcal Vaccine: Pediatrics (0 to 5 Years) and At-Risk Patients (6 to 64 Years) (2 of 2 - PCV) [facility] Start: 2014 Breast cancer screen Breast cancer screen [place], [place] Start: 2014 Colon cancer screen colonoscopy Colon cancer screen colonoscopy [place], [place] Start: 2014 Shingles Vaccine (1 of 2) Shingles Vaccine (1 of 2) [facility] Start: 08-26-2009 MMR Vaccines (1 of 1 - Standard series) MMR Vaccines (1 of 1 - Standard series) [facility] Start: 2009 Screening for malignant neoplasm of colon [facility] Start: 1999 Diabetes screen Diabetes screen [facility] Start: 1986 DTaP/Tdap/Td Vaccines (1 - Tdap) DTaP/Tdap/Td Vaccines (1 - Tdap) [facility] Start: 1985 Cervical cancer screen Cervical cancer screen [place], [place] Start: 1985 Screening for malignant neoplasm of cervix [facility] Start: 1983 DTaP/Tdap/Td vaccine (1 - Tdap) DTaP/Tdap/Td vaccine (1 - Tdap) [facility] Start: 1982 Diabetes mellitus screening Diabetes Screening [facility] Start: 1982 Hepatitis C screening [facility] Start: 1979 HIV screen HIV screen [place], [place] Start: 1979 HIV screening HIV screen [facility] Start: 1976 Depression Screen Depression Screen [facility] Start: 1975 DTaP/Tdap/Td vaccine (1 - Tdap) DTaP/Tdap/Td vaccine (1 - Tdap) [facility] [facility] Start: 1974 Lipid panel Lipids [facility] Start: 1974 Lipid screen Lipid screen [place], [place] Start: 1964 Hepatitis B vaccine (1 of 3 - 3-dose series) Hepatitis B vaccine (1 of 3 - 3-dose series) [facility] Start: 1964 Hepatitis B Vaccines (1 of 3 - 3-dose series) Hepatitis B Vaccines (1 of 3 - 3-dose series) [facility] Start: 1964 Hepatitis C screen Hepatitis C screen [place], [place] Start: 1964 HIV screening HIV Screening [facility] Start: 1964 Lipid panel Lipid Panel [facility] Start: 1965 Screening for malignant neoplasm of colon [facility] Start: 1965 Yearly Adult Physical Yearly Adult Physical [facility] Actin smooth muscle IgG Ab [Units/volume] in Serum [facility] Alpha 1 antitrypsin [Mass/volume] in Serum or Plasma [facility] Alpha 1 antitrypsin phenotyping [Identifier] in Serum or Plasma by Immunofixation [facility] Ceruloplasmin [Mass/volume] in Serum or Plasma [facility] End: 08-19-2019 Cytopathology procedure, preparation of smear, genital source [facility] Lab Routine Well female exam with routine gynecological exam 1 Occurrences starting 08/19/2019 until 08/19/2019 [place], [place] Comment on above: 1 Occurrences starting 08/19/2019 until 08/19/2019 End: 02-07-2022 Cytopathology procedure, preparation of smear, genital source PAP SMEAR Lab Routine Women's annual routine gynecological examination 1 Occurrences starting 02/07/2022 until 02/07/2022 [facility] [employer] Work Phone: Comment on above: 1 Occurrences starting 02/07/2022 until 02/07/2022 Glucose measurement estimated from glycated hemoglobin [facility] Hepatitis A virus Ab [Presence] in Serum by Immunoassay [facility] Hepatitis B core ant ibody measurement [facility] Hepatitis B virus khanna rface Ab [Presence] in Serum [facility] Hepatitis B virus khanna rface Ag [Presence] in Serum or Plasma by Immunoassay [facility] Hepatitis C virus Ig G Ab [Presence] in Serum or Plasma by Immunoassay [facility] Homogenous nuclear A b pattern [Titer] in Serum [facility] IgG [Mass/volume] in Serum or Plasma [facility] End: 06-18-2023 INITIATE PACU OXYGEN THERAPY PROTOCOL Initiate PACU Oxygen Therapy Protocol Respiratory Care Routine Continuous until discontinued starting 06/18/2023 Can'tWait Comment on above: Continuous until discontinued starting 0 06/18/2023 Lipoprotein a [Moles/volume] in Serum or Plasma [facility] Mitochondria M2 IgG Ab [Units/volume] in Serum [facility] Nuclear Ab [Titer] i n Serum [facility] Oxygen therapy [Mini mum Data Set] Initiate Oxygen Therapy Protocol Respiratory Care Routine As Needed until discontinued starting 06/18/2023 Can'tWait Comment on above: As Needed until discontinued starting Oxygen therapy [Mini mum Data Set] Initiate Oxygen Therapy Protocol Respiratory Care Routine As Needed until discontinued starting 06/18/2023 Can'tWait Comment on above: As Needed until discontinued starting Patient Education Hemorrhoids (DC) [facility] Work Phone: End: 06-18-2023 , urine POCT , urine POCT Point of Care Testing Routine One Time for 1 Occurrences starting 06/18/2023 until 06/18/2023 Can'tWait Comment on above: One Time for 1 Occurrences starting 06/01 until 06/18/2023 Surgical Pathology Surgical Path ology Lab Routine Post-menopausal bleeding Inclusion cyst Release Upon Ordering for 1 Occurrences starting 06/18/2023 Can'tWait Comment on above: Release Upon Ordering for 1 Occurrences starting 06/18/2023 [facility] Immunizations Immunization Date Immunization Notes Care Provider Sudhakar ponce 06-01-2024 influenza, unspecifi ed formulation JENNIFER MARTINO [facility] 06-16-2022 influenza, injectabl e, quadrivalent, preservative free Ashley M Hoy Work Phone: [facility] 250 DO Work Phone: 06-16-2022 zoster vaccine recombinant Ashley M Hoy Work Phone: [facility] 250 DO Work Phone: 08-01-2021 Pfizer-BioNTech COVI D-19 Vacc 30 MCG/0.3ML Intramuscular Suspension Ashley M Hoy Work Phone: [facility] 250 DO Work Phone: 06-30-2021 influenza virus vacc ine, unspecified formulation Ashley M Hoy Work Phone: [facility] 250 DO Work Phone: 06-03-2021 Influenza, injectabl e, Madin [place] Canine Kidney, preservative free, quadrivalent Ashley M Hoy Work Phone: [facility] 250 DO Work Phone: 01-29-2021 Pfizer-BioNTech COVI D-19 Vacc 30 MCG/0.3ML Intramuscular Suspension Ashley M Hoy Work Phone: [facility] 250 DO Work Phone: 01-08-2021 Pfizer-BioNTech COVI D-19 Vacc 30 MCG/0.3ML Intramuscular Suspension Ashley M Hoy Work Phone: [facility] 250 DO Work Phone: 2020 influenza, injectabl e, quadrivalent, preservative free Ashley M Hoy Work Phone: [facility] 250 DO Work Phone: 07-23-2018 influenza, injectabl e, quadrivalent, preservative free Ashley M Hoy Work Phone: [facility] 250 DO Work Phone: 07-26-2017 Influenza, injectabl e, Madin [place] Canine Kidney, preservative free, quadrivalent Ashley M Hoy Work Phone: [facility] 250 DO Work Phone: 05-09-2017 pneumococcal polysaccharide vaccine, 23 valent Ashley M Hoy Work Phone: [facility] 250 DO Work Phone: 07-03-2015 influenza, seasonal, injectable, preservative free Ashley M Hoy Work Phone: [facility] 250 DO Work Phone: 06-15-2014 influenza, seasonal, injectable Ashley M Hoy Work Phone: [facility] 250 DO Work Phone: 07-29-2009 novel influenza-H1N1 -09, preservative-free, injectable Ashley M Hoy Work Phone: [facility] 250 DO Work Phone: Payers Date Payer Category Payer Self-pay [id number] [phone] [id number] 2022 [facility] [id number] 2022 Unknown 2019 Unknown [employer] [place] xxxxxxxxxxxxxxx 2019-Present [address] [place] [address] xxxxxxxxxxxxxxx [id number] 1964 Unknown [id number] 2.16.840.1.626620.3.579.2.5 93 1964 Unknown [id number] 2.16.840.1.332507.3.579.2.5 93 1964 Unknown [id number] 2.16.840.1.718817.3.579.2.5 93 1964 Unknown [id number] 2.16.840.1.887541.3.579.2.5 93 1964 Unknown [id number] 2.16.840.1.193931.3.579.2.5 93 1964 Unknown [id number] 2.16.840.1.181520.3.579.2.1 73 1964 Unknown [id number] 2.16.840.1.710769.3.579.2.1 75 1964 Unknown [id number] 2.16.840.1.362881.3.579.2.1 259 1964 Unknown [id number] 2.16.840.1.773128.3.579.2.1 286 1964 Unknown [id number] 2.16.840.1.870830.3.579.2.1 286 1964 Unknown [id number] 2.16.840.1.083574.3.579.2.1 286 1964 Unknown [id number] 2.16.840.1.559444.3.579.2.1 286 1964 Unknown [id number] 2.16.840.1.891449.3.579.2.1 286 1964 Unknown [id number] 2.16.840.1.371835.3.579.2.1 286 1964 Unknown [id number] 2.16.840.1.953347.3.579.2.1 286 1964 Unknown [id number] 2.16.840.1.271817.3.579.2.7 27 1964 Unknown [id number] 2.16.840.1.699476.3.579.2.7 27 1964 Unknown [id number] 2.16.840.1.033963.3.579.2.7 27 1964 Unknown [id number] 2.16.840.1.266632.3.579.2.1 244 1964 Unknown [id number] 2.16.840.1.165070.3.579.2.1 244 1959 Unknown [id number] 1959 Unknown [id number] Unknown [id number] 2.16.840.1.429145.3.579.2.5 31 Social History Date Type Detail Facility Start: 08-19-2019 End: 08-14-2023 Tobacco smoking status NHIS Never smoker [place], [place] Start: 08-19-2019 End: 06-18-2023 Alcohol intake Ex-drinker (finding) [place], [place] Start: 1965 Sex Assigned At Not on file [place], [place] Start: 06-18-2023 End: 09-05-2024 No alcohol use No alcohol use [facility] 250 DO Work Phone: Start: 08-19-2019 End: 08-14-2023 Tobacco use and exposure Smokeless tobacco non-user [facility] Work Phone: Start: 06-18-2023 End: 09-05-2024 Sex Assigned At Female [facility] Start: 1965 Sex Assigned At Female [facility] Patient Health Questionnaire 9 item (PHQ-9) total score [Reported] 0 SADI RODRIGUEZ [facility] Start: 08-14-2023 End: 09-05-2024 Alcohol intake Lifetime non-drinker (finding) [facility] Work Phone: Start: 08-04-2023 End: 09-05-2024 Exposure to SARS-CoV-2 (event) Not sure [facility] Start: 08-19-2024 Sex Female (finding) [facility] NEGATED: Highlighted row Denies Caffeine use Denies Caffeine use -[facility] 250 DO Work Phone: Medical Equipment Procedure [...] Status N/A [facility] 04-10-2024 Functional Status N/A [facility] 06-02-2022 Functional Status N/A [facility] Clinical Notes 06-02-2022 to 09-05-2024 Celso Garibay, DO - 09/05/2024 9:20 AM ESTPatient InstructionsAttachments Note Date & Type Note Facility 09-05-2024 History of Present illness Narrative Subjective Jose Alberto Saleem is a 59 y.o. female Chief Complaint Follow-up 59-year-old female returns following acute coronary syndrome, with subsequent two-vessel intervention of the vein graft to the diagonal branch with long 3.5 x 38 mm Cross Timbers stent and [place] distal circumflex for in-stent restenosis with 3 x 18 mm Ray stent. LV function is preserved. WHEELER-LAD remains patent, [place] right coronary vein graft right coronary is chronically occluded (known from the past) and collateralized via left coronary system, and vein graft to the OM 2 is also occluded chronically however [place] circumflex is intact. Patient is otherwise stable [...] Atherosclerosis of coronary artery bypass graft of [place] heart without angina pectoris 2. S/P PTCA [...] and plan. documented in this encounter [facility] Work Phone: 09-05-2024 Instructions Jasmyne Salinas LPN [...] be sent through Care Everywhere.Heart Healthy Diet (Sri Lankan)documented in this encounter [facility] Work Phone: 08-19-2024 Evaluation note Diagnosis Onset Date Resolution Atypical chest pain acute Novem rocky 2023 11:18pm [facility] Work Phone: 1(341) 250-367211-13-2024 History of Present illness Narrative* Celso Garibay DO - 08/13/2024 11:30 AM EST Subjective Jose Alberto Saleem is a 59 y.o. female Chief Complaint Annual Exam 59-year-old female returns for annual visit, she just got back from [facility] from vacation last evening and is doing [...] has a history of remote CABG, remote [place], remote PCI's before and after her CABG [...] Assessment/Plan 1. Atherosclerosis of coronary artery of red [place] heart without angina pectoris, unspecified vessel or lesion type Follow Up In Cardiology 2. History of coronary artery bypass graft Follow Up In Cardiology 3. Essential hypertension, benign 4. Hyperlipidemia, unspecified hyperlipidemia type 5. Acute pancreatitis, unspecified complication status, unspecified pancreatitis type ([facility]) Scribe Attestation By signing my name [...] discussion and plan. [facility] Work Phone: 1(392) 478-845811-13-2024 Instructions* Patient Instructions* Bettie Ugalde LPN - [...] instructions on exercise. [facility] Work Phone: 1(196) 198-557311-05-2024 Hospital Discharge instructions Patient Education 08/05/2024 12:20:10 Kidney Stones, Fixy-th-Zdgc Kidney Stones Kidney stones are rock-like masses [...] Follow these instructions at home: Medicines Take vnxq-pxw-jpakjzq and prescription medicines only as told by [...] provider. Document Revised: 05/11/2023 Document Reviewed: 05/11/2023 [email or web address] Patient Education 2023 [employer]. Follow Up Care 06/06/2024 11:10:21 With:SALENA REDDY, JENNIFER López, URL Address: When:1 year [facility] 11-05-2024 NotePatient Education Urology Kidney Stones Kidney [...] these instructions at home: Medicines ??? Take hfzc-cbt-luawqdn and prescription medicines only as told by [...] Reviewed: 05/11/2023 Elsevier Patient Education ? 2023 [email or web address] 04-10-2024 Hospital Discharge instructions Patient Education 04/10/2024 16:08:23 Kidney Stones, Qgkd-wg-Hwmr Kidney Stones Kidney stones are rock-like masses [...] Follow these instructions at home: Medicines Take udto-mun-kejocwh and prescription medicines only as told by [...] provider. Document Revised: 05/22/2022 Document Reviewed: 05/22/2022 [email or web address] Patient Education 2022 [employer]. Follow Up Care 03/10/2024 08:31:33 With:JENNIFER MARTINO PA-C, URL Address: [address] [place] [address] When:3 months [facility] 07-11-2024 NotePatient Education Urology Kidney Stones Kidney [...] these instructions at home: Medicines ? Take gdpb-qre-vymipyg and prescription medicines only as told by [...] provider. Document Revised: 05/22/2022 Document Reviewed: 05/22/2022 [email or web address] Patient Education ? 2022 [employer].[facility] 02-27-2024 Note Attestation signed by Danielle Cesar MD at 02/27/2024 2:30 PM I personally saw and examined the patient on the same date of service as resident/fellow . I discussed the findings and therapeutic plan with the resident/fellow . I agree with the documentation, except for any edits/updates below. [facility] Gastroenterology New Patient Visit - History [...] pectoris (CMS/HCC) Atherosclerosis of coronary artery of red [place] heart without angina pectoris Cellulitis of right [...] Mother Gretta Hyperlipidemia Father Munoz Hyperlipidemia Brother [place] Heart attack Brother Luis Manuel SOCIAL HISTORY: [...] negative HEENT: negative RESPI (more content not included)...[facility] 08-14-2023 History of Present illness Narrative* Celso [...] has a history of remote CABG, remote [place], remote PCI's before and after her CABG [...] Assessment/Plan 1. Atherosclerosis of coronary artery of [place] heart without angina pectoris, unspecified vessel or lesion type 2. History of coronary artery bypass graft 3. Ischemic cardiomyopathy 4. Essential hypertension, benign documented in this [facility] Work Phone: [phone]) 149-421511-14-2023 Instructions* Patient Instructions* Ej Braswell MA - [...] time of your visit. documented in this [facility] Work Phone: [phone]) 635-210109-18-2023 Hospital Discharge instructions* Discharge Instructions* Lissa Ocasio [...] call if excessive. Call the office at [phone] ([place]) [phone] ([place]) for an appointment in 2 weeks. [facility] History of Present illness Narrative* Sejal Pro [...] Dr. Tripathi. [facility] Evaluation note* Encounter Date Diagnosis Assessment Notes Treatment Notes Treatment Clinical Notes Nov, Elevated liver function tests (ICD-10 - R94.5) [employer] Other 02-02-2023 Procedure [facility]02-01-2023 Procedure [facility]01-24-2023 Evaluation note* Encounter Date Diagnosis Assessment Notes Treatment Notes Treatment Clinical Notes Oct, Abdominal pain (ICD-10 - R10.9) Oct, Common bile duct dilatation (ICD-10 - K83.8) Oct, Elevated liver enzymes (ICD-10 - R74.8) Oct, Constipation (ICD-10 - K59.00) Colonoscopy Start Miralax daily after colonoscopy. Titration dosing discussed with patient. Oct, Colon cancer screening (ICD-10 - Z12.11) [employer] Other 01-04-2023 NotePROGRESS NOTE NOTE DATE: 10/04/2022 CHIEF COMPLAINT: Abdominal pain. HISTORY OF PRESENT ILLNESS: The patient is a 57-year-old female with a history of dyslipidemia and gastric bypass surgery, who has been having increasing abdominal pain and flank pain. She was seen yesterday at the [facility] for epigastric and upper abdominal [...] Prophylaxis: Lovenox. DISPOSITION: Home when medically stable.[id number] Hospital Discharge instructions Patient Education 06/02/2022 08:51:52 Kidney Stones, Zrdn-wd-Wtia Kidney Stones Kidney stones are rock-like masses [...] Follow these instructions at home: Medicines Take auhf-eux-kfoeffi and prescription medicines only as told by [...] 03/05/2009 Document Revised: 02/03/2020 Document Reviewed: 02/03/2020 [email or web address] Patient Education 2019 [employer]. Follow Up Care 05/27/2021 09:10:08 With:LORENA STRAUSS, Santiago Guzman, URL Address: [address] [place], [place] [id number]- When: Unknown [facility] evaluation + Plan note Future Appointments Appointment Date:06/01/2023 08:00:00 AM Scheduled Provider:Santiago CARRILLO MD Location:[facility] Appointment Type:URO Office Visit [facility] evaluation + Plan note Future Appointments Appointment Date:04/10/2024 03:00:00 PM Scheduled Provider:JENNIFER MARTINO PA-C Location:[facility] Appointment Type:URO Office Visit [facility] evaluation + Plan note Future Scheduled Tests Radiology* XR Abdomen 1 View 08/05/25 [facility] evaluation note* Diagnosis Women's annual routine gynecological examination documented in this encounter [employer] Work Phone: [email or web address] noteNo assessment information available [facility] Work Phone: Evaluation noteNo InformationNort Zapproved Other Evaluation note* Diagnosis Post-menopausal bleeding Postmenopausal bleeding Inclusion cyst Sebaceous cyst [facility] Diagnosis Atherosclerosis of coronary artery of [place] heart without angina pectoris, unspecified vessel or lesion type 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 Ischemic cardiomyopathy Other specified forms of chronic ischemic heart disease Essential hypertension, benign documented in this encounter [facility] Work Phone: Evaluation note* Diagnosis Atherosclerosis of coronary artery of [place] heart without angina pectoris, unspecified vessel or lesion type 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 Essential hypertension, benign Hyperlipidemia, unspecified hyperlipidemia type Acute pancreatitis, unspecified complication status, unspecified pancreatitis type ([facility]) documented in this encounter [facility] Work Phone: Evaluation note* Diagnosis Atherosclerosis of coronary artery bypass graft of [place] heart without angina pectoris S/P PTCA (percutaneous transluminal coronary angioplasty) Postsurgical percutaneous transluminal coronary angioplasty status 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 Ischemic cardiomyopathy Other specified forms of chronic ischemic heart disease Essential hypertension Unspecified essential hypertension Mixed hyperlipidemia BMI 30.0-30.9,adult Statin intolerance documented in this encounter [facility] Work Phone: History and physical note Author Evert Bruno [facility] November 01, 2022 12:40pm Note Date/Time November 01, 2022 1 2:40pm [facility] [address] [place] [address] Gastroenterology H&P Signed Patient: Jose Alberto Saleem MR#: [id number] : 1965 Acct:[id number] Age/Sex: 57 / F Adm Date: 3 Loc: Room: Type: [facility] Attending Dr: Evert Bruno MD [...] signed by Evert Bruno MD> 11/01/22 1240 [facility] Work Phone: History and physical note Author Evert Bruno [facility] November 02, 2022 2:14pm Note Date/Time November 02, 2022 2 :14pm [facility] [address] [place] [address] Gastroenterology H&P Signed Patient: Jose Alberto Saleem MR#: [id number] : 1965 Acct:[id number] Age/Sex: 57 / F Adm Date: 3 Loc: Room: Type: [facility] Attending Dr: Evert Bruno MD [...] signed by Evert Bruno MD> 11/02/22 1414 [facility] Work Phone: History general Narrative - Reported* Type Description Date Medical History impaired fasting glucose Medical History heart disease, [place] stents, CABG Medical History Hypertension Medical History hyperlipidemia Medical History nutritionalist esophogus Surgical History CABG remote history Surgical History gastric bypass 2017 Surgical History multiple kidney stones removed Surgical History appendectomy Surgical History cyst on ovarian removed Surgical History bilateral carpe tunnel surgery 2021 Surgical History cholecystectomy Hospitalization History see surgical hx [place] Zapproved Other Hospital course Narrative No data available for this section [facility] Hospital Discharge instructions Additional Instructions [...] NOT operate machinery such as power tools, [employer] mowers, [employer] blowers, sewing machines, etc. for 24 hours. [...] problems. -Follow up with PCP. -Office number [phone]. [facility] Work Phone: Hospital Discharge instructions [...] problems. -Follow up with PCP. -Office number [phone]. [facility] Work Phone: Hospital Discharge instructions No data available for this section [facility] progress note No data available for this section [facility] reason for referral (narrative)* Consultation (Routine) - Authorized Specialty Diagnoses / Procedures Referred By Manfred flynn Referred To Contact Cardiology Diagnoses Atherosclerosis of coronary artery of red [place] heart without angina pectoris, unspecified vessel or lesion type History of coronary artery bypass graft Procedures Follow Up In Cardiology Celso Garibay DO [address] [address] Celso Garibay DO [address] [place] [address], [address] [address] Referral ID Status Reason Start Date Expiration Date V isits Requested Visits Authorized [id number] Authorized 08/14/2023 08/13/2024 1 1 [facility] Work Phone: Summary Purpose Family History [...] FoundDocuments on File Type Date Recorded 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 * [place] [employer] is class I * Recommendations, [...] She has a history of prior inferior [place], prior PCI with subsequent three-vessel CABG and [...] She has a history of prior inferior [place], prior PCI with subsequent three-vessel CABG and [...] section and content) DATE CREATED AUTHOR 03/26/2018 [facility] DATE CREATED AUTHOR AUTHOR'S ORGANIZ ATION 03/26/2018 [facility] DATE CREATED AUTHOR AUTHOR'S ORGANIZ ATION 08/02/2022 [facility] dical Specialist DATE CREATED AUTHOR AUTHOR'S ORGANIZ ATION 08/17/2022 [employer] DATE CREATED AUTHOR AUTHOR'S ORGANIZ ATION 10/17/2022 [facility] DATE CREATED AUTHOR AUTHOR'S ORGANIZ ATION 06/23/2023 [facility] DATE CREATED AUTHOR AUTHOR'S ORGANIZ ATION 07/16/2023 [facility] DATE CREATED AUTHOR AUTHOR'S ORGANIZ ATION 09/15/2023 [facility] DATE CREATED AUTHOR AUTHOR'S ORGANIZ ATION 01/19/2024 [facility] DATE CREATED AUTHOR AUTHOR'S ORGANIZ ATION 03/03/2024 [facility] DATE CREATED AUTHOR AUTHOR'S ORGANIZ ATION 03/07/2024 [facility] DATE CREATED AUTHOR AUTHOR'S ORGANIZ ATION 08/06/2024 [facility] DATE CREATED AUTHOR AUTHOR'S ORGANIZ ATION 09/13/2024 [facility] DATE CREATED AUTHOR AUTHOR'S ORGANIZ ATION 09/15/2024 [facility] Care Teams (unrecognized sec [...] Active Evert Bruno MD Attending Provider Active Chopped Strand Operator Relationship Specialty Start Date End Date Ashley Grigsby MD [address] [place] [address] PCP - General Family Medicine 08/19/19 Chopped Strand Operator Relationship Specialty Start Date End Date Ashley Grigsby MD [address] [place] [address] PCP - General Family Medicine 08/19/19 Chopped Strand Operator Relationship Specialty Start Date End Date Ashley Grigsby MD [address] [place] [address] PCP - General 08/17/21 Chopped Strand Operator Relationship Specialty Start Date End Date Ashley Grigsby MD [address] [place] [address] PCP - General 08/17/21 Chopped Strand Operator Relationship Specialty Start Date End Date Ashley Grigsby MD [address] [place] [address] PCP - General 08/17/21 Anita Hammonds, telecasting technicianSmash Hand 08/22/24 REASON FOR VISIT (unrecogniz ed section and content) Specialty Diagnoses / Procedures Referred By Contfélix t Referred To Contact Diagnoses Post-menopausal bleeding Inclusion cyst Post-menopausal bleeding [N95.0] Inclusion cyst [L72.0] Procedures LA HYSTEROSCOPY BX ENDOMETRIUM&/POLYPC W/WO D&C LA DESTRUCTION BENIGN LESIONS UP TO 14 DILATATION AND CURETTAGE HYSTEROSCOPY-REMOVAL OF INCLUSION CYST Gaby Phillips, DO [address] [place] [address] [facility] [address] [place] [address] Referral ID Status Reason Start Date Expiration Date Visits Re quested Visits Authorized [id number] 1 1 Reason Comments Annual Exam 1yr Specialty Diagnoses / Procedures Referred By Manfred flynn Referred To Contact Cardiology Diagnoses Atherosclerosis of coronary artery of [place] heart without angina pectoris, unspecified vessel or lesion type History of coronary artery bypass graft Procedures Follow Up In [facility]iology [place] Celso Pam, [address] [facility] [address], [address] [address] Phone: tel: fax: Celso Garibay, DO [address] [facility] [address], [address] [address] Phone: tel: fax: Referral ID Status Reason Start Date Expiration Date V isits Requested Visits Authorized [id number] Authorized 08/14/2023 08/13/2024 1 1 Reason Comments Follow-up [facility] discharge 08/22 Ordered Prescriptions (unrec ognized section [...] (NoRateChange - Provider: Lynnette Walden APRN - AIRPLANE RENTAL CLERK)[id number] (Paused - Provider: OTONIEL Fragoso CRNA - [...] BE BASED ON THE PRIMARY CLINICAL RECORDS. [facility]. provides no warranty or guarantee of the accuracy or completeness of information in this document.
[2024-09-30] MEDS: LACTATED RINGER'S SOLUTION 1,000 ML 100 ML IV (19:57)
[2024-09-30] MEDS: PIPERACILLIN SODIUM/TAZOBACTAM 3.375 GM in 0.9 % SODIUM CHLORIDE 50 ML IV (19:58)
[2024-09-30 20:20] LABS: Bilirubin Urine NEGATIVE (NEGATIVE); Blood Urine NEGATIVE (NEGATIVE); Clarity Urine CLEAR (CLEAR); Color Urine LT. YELLOW (YELLOW); Glucose Urine UA NEGATIVE (NEGATIVE); Ketones Urine NEGATIVE (NEGATIVE); Leukocyte Esterase Urine NEGATIVE (NEGATIVE); Nitrite Urine NEGATIVE (NEGATIVE); Protein Urine NEGATIVE (NEG/TRACE); Urobilinogen Urine 0.2 EU/dL (0.2-1.0)
[2024-09-30 20:24] LABS: Bacteria Urine NONE SEEN #/HPF (NONE SEEN); Cast Seen? NONE SEEN #/LPF (NONE SEEN); Crystals Seen? None Seen #/HPF (None Seen); Mucus Urine NONE SEEN (NONE SEEN); RBC Urine 0-2 #/HPF (0-2); Squamous Epithelial Cell Urine NONE SEEN #/LPF (NONE/RARE); WBC Urine 0-2 #/HPF (NONE SEEN)
[2024-09-30] MEDS: FLUTICASONE PROPIONATE 50 MCG NASAL SPRAY 2 SPRAY NS (20:51)
[2024-09-30] MEDS: PANTOPRAZOLE SODIUM 40 MG VIAL IV (20:51)
[2024-10-01] VITALS (7 sets, daily range): BP systolic 154–156; BP diastolic 82–90; PULSE 61–74; TEMP 36.4–36.6; O2SAT 93–98
[2024-10-01] MEDS: PIPERACILLIN SODIUM/TAZOBACTAM 3.375 GM in 0.9 % SODIUM CHLORIDE 50 ML IV (01:59)
[2024-10-01] MEDS: LACTATED RINGER'S SOLUTION 1,000 ML 100 ML IV ×2 (06:19→16:14)
[2024-10-01 06:39] LABS: Basophils Percent Auto 0.6 % (0.2-2.0); Eosinophils Absolute Auto 0.3 10^3/uL (0.0-0.7); Eosinophils Percent Auto 5.4 % (0.9-7.0); Hematocrit 45.6 % (36.0-48.0); Hemoglobin 14.9 g/dL (12.0-16.0); Immature Granulocytes Abs Auto 0.02 10^3/uL (0.00-0.03); Immature Granulocytes Pct Auto 0.4 % (0.0-0.5); Lymphocytes Absolute Auto 1.6 10^3/uL (1.2-3.8); Lymphocytes Percent Auto 32.4 % (20.5-60.0); Mean Corpuscular HGB Conc 32.7 g/dL (29.9-35.2); Mean Corpuscular Hemoglobin 30.2 pg (26.7-34.0); Mean Corpuscular Volume 92.3 fL (81.0-99.0); Mean Platelet Volume 9.2 fL (9.5-13.5); Monocytes Absolute Auto 0.5 10^3/uL (0.3-0.8); Monocytes Percent Auto 10.2 % (1.7-12.0); Neutrophils Absolute Auto 2.5 10^3/uL (1.4-6.5); Platelet Count 207 10^3/uL (150-450); Red Blood Count 4.94 10^6/uL (4.20-5.40); Red Cell Distribution Width 12.3 % (11.0-15.0); White Blood Count 4.8 10^3/uL (4.0-11.0)
[2024-10-01 06:50] LABS: Ammonia 26 umol/L (11-32)
[2024-10-01 06:54] LABS: Alanine Aminotransferase 48 U/L (14-59); Albumin Globulin Ratio 1.1; Albumin Level 3.7 g/dL (3.4-5.0); Alkaline Phosphatase 113 U/L (46-116); Anion Gap 8.5; Aspartate Amino Transferase 26 U/L (15-37); Bilirubin Total 0.5 mg/dL (0.2-1.0); Calcium 9.5 mg/dL (8.5-10.1); Carbon Dioxide 33.7 mmol/L (21.0-32.0); Chloride 104 mmol/L (98-107); Estimated GFR (African America >60 (>=60 mL/min/1.73m^2); Estimated GFR (Non-African Ame >60 (>=60 mL/min/1.73m^2); Globulin 3.4 g/dL; Glucose 90 mg/dL (74-106); Potassium 4.2 mmol/L (3.5-5.1); Sodium 142 mmol/L (136-145); Total Protein 7.1 g/dL (6.4-8.2)
[2024-10-01] MEDS: FLUTICASONE PROPIONATE 50 MCG NASAL SPRAY 2 SPRAY NS ×2 (08:30→21:53)
[2024-10-01] MEDS: CITALOPRAM HYDROBROMIDE 20 MG TABLET 40 MG PO (08:30)
--- NOTE | 2024-10-01 10:11 | P.DS_ITS ---
DS: Providers Provider Date of admission: 09/30/24 19:33 Primary care physician: Ziggy Dejesus MD Consults: 09/30/24 18:03 Consult to Pharmacy Routine Consulting Provider: Reason for consultation: Please [place] me when Med Rec is Updated Has provider been notified: No DS: Diagnosis Discharge Diagnosis (1) Abdominal pain: (2) Acute pancreatitis: (3) Acute abdomen: (4) Hyperlipidemia: (5) History of prediabetes: (6) Hypertension: Plan Admission findings: Uncontrolled high blood pressure, elevated LFTs, elevated amylase and lipase with lipase over 700, patient admitted for n.p.o. and IV antibiotics, history of complicated acute pancreatitis in the past requiring long-term hospitalization Acute pancreatitis-uncertain etiology she had for this recurrently. She has a history of sepsis in the past, placed patient on IV antibiotics serial labs, n.p.o. Uncontrolled hypertension-likely secondary to pain-monitor Hyperlipidemia is a possibility for why she gets the pancreatitis but has been controlled in the past and still has pancreatitis Admission status: Patient with a history of pancreatitis recurrent, typical hospitalization is 2 to 3 days, she has had sepsis in the past requiring lengthy hospitalization, medically necessary treatment will span 2 midnights. Inpatient status. ? DS: Summary Hospital Course Hospital Course: Patient was seen and evaluated in outpatient setting secondary to increasing abdominal pain. She has a history of chronic intermittent pancreatitis with uncertain etiology, but today she had a amylase of over 200 and a lipase of over 700, with her pain persisting was recommended she present to the emergency room for admission her amylase and lipase are actually better than then, she was placed inpatient status secondary to the likelihood that she would last 2 midnights, she is much improved today, amylase and lipase have returned to normal, much quicker than anticipated based on her history and the level of lipase on admission. And the day before admission, at this point the plan is let her eat breakfast and lunch, fat-free diet, recheck amylase and lipase after lunch, if lipase is still less than 150, will discharge patient to home in improving condition. Medications see list. Follow-up with me in the office next week. Status at Discharge Overall status at discharge: patient is not back to baseline Time Spent with Patient Time attestation: Total time spent providing and/or coordinating discharge services: Time spent: greater than 30 minutes Exam Constitutional Vital Signs, click to edit/add: Last Vital Signs Temp 97.8 F 10/01/24 08:24 Pulse 74 10/01/24 08:24 Resp 18 10/01/24 08:24 BP 156/86 H 10/01/24 08:24 Pulse Ox 97 10/01/24 08:24 O2 Del Method Room Air 10/01/24 08:24 Documenting provider has reviewed patient's vital signs: yes Common normals: no apparent distress Respiratory Common normals: normal respiratory effort Cardio Common normals: no JVD and regular rate GI Common normals: Normal to inspection, nondistended, normoactive bowel sounds present and soft to palpation; tender (Minimal tenderness, much improved) DS: Data Data Completed and Pending Labs on day of discharge: Labs from last 24 hours 10/01/24 09/30/24 09/30/24 06:21 20:11 17:24 WBC 4.8 6.7 RBC 4.94 5.04 Hgb 14.9 15.4 Hct 45.6 46.4 MCV 92.3 92.1 MCH 30.2 30.6 MCHC 32.7 33.2 RDW 12.3 12.3 Plt Count 207 235 MPV 9.2 L 9.5 Neut % (Auto) 51.0 62.7 Lymph % (Auto) 32.4 22.8 [place] % (Auto) 10.2 10.0 Eos % (Auto) 5.4 4.0 Baso % (Auto) 0.6 0.4 Neut # (Auto) 2.5 4.2 Lymph # (Auto) 1.6 1.5 [place] # (Auto) 0.5 0.7 Eos # (Auto) 0.3 0.3 Baso # (Auto) 0.0 0.0 Abs Immat Gran (auto) 0.02 0.01 Imm/Tot Granulo (auto) 0.4 0.1 PT 10.8 INR 1.02 APTT 30.2 Sodium 142 140 Potassium 4.2 4.2 Chloride 104 103 Carbon Dioxide 33.7 H 30.6 Anion Gap 8.5 10.6 BUN 16.0 25.0 H Creatinine 0.80 0.74 Est GFR ( Amer) >60 >60 Est GFR (Non-Af Amer) >60 >60 BUN/Creatinine Ratio 20.0 33.8 Glucose 90 110 H Lactate 1.0 Calcium 9.5 10.2 H Magnesium 2.3 Total Bilirubin 0.5 0.3 Direct Bilirubin 0.1 AST 26 29 ALT 48 51 Alkaline Phosphatase 113 114 Ammonia 26 Total Protein 7.1 7.3 Albumin 3.7 3.8 Globulin 3.4 3.5 Albumin/Globulin Ratio 1.1 1.1 Triglycerides 95 Cholesterol 219 H LDL Cholesterol, Calc 139.0 VLDL Cholesterol 19.0 HDL Cholesterol 61 H Cholesterol/HDL Ratio 3.6 Amylase 234 H Lipase 57.0 163.0 H Urine Color Lt. yellow Urine Clarity Clear Urine pH 7.0 Ur Specific [place] 1.010 Urine Protein Negative Urine Glucose (UA) Negative Urine Ketones Negative Urine Occult Blood Negative Urine Nitrite Negative Urine Bilirubin Negative Urine Urobilinogen 0.2 Ur Leukocyte Esterase Negative Urine RBC 0-2 Urine WBC 0-2 A Ur Squamous Epith Cells None seen Urine Crystals None seen Urine Bacteria None seen Urine Casts None seen Urine Mucus None seen Discharge Plan Discharge Disposition: Home, Self-Care Condition: Good Discharge Medications: Continued aspirin 81 mg tablet,delayed release (DR/EC) 81 mg PO BEDTIME cevimeline 30 mg capsule 30 mg PO TID citalopram 40 mg tablet 40 mg PO DAILY fluticasone propionate 50 mcg/actuation spray,suspension 1 spray INTRANASAL BID rabeprazole 20 mg tablet,delayed release (DR/EC) 20 mg PO BID tamsulosin 0.4 mg capsule 0.4 mg PO DAILY amlodipine 2.5 mg tablet 2.5 mg PO DAILY clopidogrel 75 mg tablet 75 mg PO DAILY Creon 24,000-76,000 -120,000 unit capsule,delayed release(DR/EC) 1 cap PO DAILY nitroglycerin 0.4 mg tablet, sublingual 0.4 mg sublingual Q5M PRN (Reason: chest pain) nystatin [Nystop] 100,000 unit/gram powder 1 applic TOPICAL BID PRN (Reason: rash) estradiol 0.01 % (0.1 mg/gram) cream 0.25 appful VAGINAL .every other day mirabegron 50 mg tablet extended release 24 hr 50 mg PO .qhs atorvastatin 20 mg tablet 20 mg PO DAILY PreserVision AREDS-2 250-90-40-1 mg capsule 1 tab PO BID Print Language: Turkmen Forms: Portal Instructions Follow Up Appointments: Please call Dr. Dejesus's office tomorrow (10/02/24) to schedule a follow up appt. for next week. [phone]
[2024-10-01] MEDS: CLOPIDOGREL BISULFATE 75 MG TABLET PO (10:34)
[2024-10-01] MEDS: TAMSULOSIN HCL 0.4 MG CAPSULE PO (10:34)
[2024-10-01] MEDS: VITS A,C,E/LUTEIN/MINERALS 1 TABLET 1 TAB PO ×2 (10:34→21:54)
[2024-10-01] MEDS: CEVIMELINE 30 MG 30 EACH PO ×3 (10:34→21:54)
[2024-10-01] MEDS: [UNRECOGNIZED DRUG - OTHER] 2 CAP PO ×2 (12:15→16:59)
[2024-10-01] MEDS: KETOROLAC TROMETHAMINE 30 MG/ML VIAL IVP ×2 (13:28→20:12)
[2024-10-01] MEDS: OXYBUTYNIN CHLORIDE 5 MG TAB XL 10 MG PO (21:54)
[2024-10-01] MEDS: ASPIRIN 81 MG TABLET.DR PO (21:54)
[2024-10-01] MEDS: PANTOPRAZOLE SODIUM 40 MG VIAL IV (21:54)
[2024-10-02] VITALS (7 sets, daily range): BP systolic 156–167; BP diastolic 76–85; PULSE 61–68; TEMP 36.4–36.7; O2SAT 94–97
[2024-10-02] MEDS: LACTATED RINGER'S SOLUTION 1,000 ML 100 ML IV ×3 (02:18→22:56)
[2024-10-02 05:47] LABS: Basophils Percent Auto 0.2 % (0.2-2.0); Eosinophils Absolute Auto 0.2 10^3/uL (0.0-0.7); Eosinophils Percent Auto 3.7 % (0.9-7.0); Hematocrit 42.3 % (36.0-48.0); Immature Granulocytes Abs Auto 0.01 10^3/uL (0.00-0.03); Immature Granulocytes Pct Auto 0.2 % (0.0-0.5); Lymphocytes Absolute Auto 1.8 10^3/uL (1.2-3.8); Lymphocytes Percent Auto 32.3 % (20.5-60.0); Mean Corpuscular HGB Conc 33.1 g/dL (29.9-35.2); Mean Corpuscular Hemoglobin 30.3 pg (26.7-34.0); Mean Corpuscular Volume 91.6 fL (81.0-99.0); Mean Platelet Volume 9.2 fL (9.5-13.5); Monocytes Absolute Auto 0.6 10^3/uL (0.3-0.8); Monocytes Percent Auto 10.2 % (1.7-12.0); Neutrophils Absolute Auto 2.9 10^3/uL (1.4-6.5); Neutrophils Percent Auto 53.4 % (43.0-75.0); Platelet Count 175 10^3/uL (150-450); Red Blood Count 4.62 10^6/uL (4.20-5.40); Red Cell Distribution Width 12.1 % (11.0-15.0); White Blood Count 5.4 10^3/uL (4.0-11.0)
[2024-10-02 06:02] LABS: Alanine Aminotransferase 32 U/L (14-59); Albumin Globulin Ratio 1.1; Albumin Level 3.2 g/dL (3.4-5.0); Alkaline Phosphatase 94 U/L (46-116); Anion Gap 9.9; Aspartate Amino Transferase 21 U/L (15-37); BUN Creatinine Ratio 17.7; Bilirubin Total 0.3 mg/dL (0.2-1.0); Calcium 8.9 mg/dL (8.5-10.1); Carbon Dioxide 28.7 mmol/L (21.0-32.0); Chloride 108 mmol/L (98-107); Estimated GFR (African America >60 (>=60 mL/min/1.73m^2); Estimated GFR (Non-African Ame >60 (>=60 mL/min/1.73m^2); Globulin 2.9 g/dL; Glucose 88 mg/dL (74-106); Potassium 3.6 mmol/L (3.5-5.1); Sodium 143 mmol/L (136-145); Total Protein 6.1 g/dL (6.4-8.2)
[2024-10-02] MEDS: CEVIMELINE 30 MG 30 EACH PO ×3 (06:30→22:46)
--- NOTE | 2024-10-02 06:34 | US_ITS ---
[facility] [place] [id number] Patient Name: JOSE ALBERTO SALEEM MRN: [id number] date: 1965 Sex: F Assigned Patient Location: [place] Current Patient Location: [place] Accession/Order Number: [id number] Exam Date: 10/02/2024 07:40 Report Date: 10/02/2024 08:41 At the request of: ASHLEY GRIGSBY Procedure: US right upper quadrant EXAM: US right upper quadrant HISTORY: pancreatitis COMPARISON: 05/01/2024 TECHNIQUE: Grayscale, color and Doppler FINDINGS: The liver is normal in size, contour and echotexture. Hepatopedal flow in the main portal vein The visualized pancreas is normal The gallbladder is absent. The right kidney measures 12.2 x 5.8 x 5.0 cm. Echogenic foci, vascular calcifications versus nephrolithiasis. 2.6 cm area of anechoic echogenicity lower pole, simple cyst US/US right upper quadrant IMPRESSION: No acute abnormality Electronically authenticated by: JAE WILSON Date: 10/02/2024 08:41
--- OUTSIDE RECORDS SUMMARY | 2024-10-02 07:19 | XMS_ITS | CCD ---
Author Organization [facility] Care Team Providers Care Crew Person Name Role Phone UNKNOWN, PROVIDER Unavailable Unavailable ASHLEY GRIGSBY Unavailable Unavailable UNKNOWN, PROVIDER Unavailable Unavailable ASHLEY GRIGSBY Unavailable Unavailable Ashley Grigsby Primary Care Provider Ashley Grigsby Unavailable Unavailable Unavailable Ashley Grigsby MD Primary Care Provider [phone] Unavailable Unavailable Ashley Grigsby Primary Care [...] Unavailable MD Ashley Grigsby Primary Care Provider [phone] MD Evert Bruno Attending Provider Evert Bruno Unavailable MD Ashley Grigsby Primary Care Provider [phone] MD Evert Bruno Attending Provider Ashley Grigsby MD Primary Care Provider GABY PHILLIPS Admitting Unavail able GABY PHILLIPS Attending Unavail able SEB ASHLEY Tyree Primary Care Unavailable SEBASHLEY Tyree Primary Care Unavailable Ashley Grigsby MD Primary Care Provider [phone] ALINA JAVIER Attending Unavailable STEPHANIE BERGER Attending [...] Provider Ari STRAUSS, Lynnette Guzman Emergency Provider [phone] Donis Arroyo DO Admit Provider [phone] Donis Arroyo DO Attending Provider Anita [...] Allergy Other (See Comments), Shortness of breath [place], [place] (20 sources) Latex; Translations: [LATEX] Propensity to adverse reactions to drug Anaphylaxis, Shortness Of Breath, Anaphylaxis (disorder) [place] (15 sources) Penicillins; Translations: [penicillins] Propensity to adverse reactions to drug Hives, Anaphylaxis (disorder) [place] (3 sources) rosuvastatin Drug Allergy 019 [place] (20 sources) Sulfamethoxazole / Trimethoprim; Translations: [Bactrim TABS] Drug Allergy 019 [place], [place] (11 sources) natural latex rubber Allergy to substance (finding) Shortness of breath [facility] [employer] 250 DO Work Phone: (11 sources) Penicillins; Translations: [Penicillins] Allergy to drug (finding) Rash [facility] [employer] 250 DO Work Phone: (18 sources) rosuvastatin; Translations: [Crestor TABS] Drug Allergy 023 Elevated liver enzymes level (finding), Other [facility] (16 sources) Sulfonamides (Antibiotic); Translations: [Sulfa Drugs] Allergy to drug (finding) [facility] (13 sources) levoFLOXacin; Translations: [levofloxacin] Drug Allergy 017 Other (See Comments), Candidiasis (disorder) [facility] [employer] Phone: (4 sources) Phenazopyridine; Translations: [PHENAZOPYRIDINE HCL] Drug Allergy 006 [facility] Work Phone: (3 sources) Simvastatin; Translations: [SIMVASTATIN] Drug Allergy 006 [facility] Work Phone: (2 sources) Sulfonamides (Antibiotic) Propensity to adverse reactions to drug 022 Other (See Comments) [employer] (8 sources) Tobramycin; Translations: [tobramycin] Drug Allergy 023 Eruption of skin (disorder) [facility] (1 source) Baclofen Drug Allergy [facility] (1 source) Latex Drug allergy (disorder) [facility] (5 sources) levoFLOXacin; Translations: [Levaquin] Drug Allergy thrush [facility] (1 source) Penicillins Drug allergy (disorder) [facility] (1 source) rosuvastatin Drug Allergy [facility] (1 source) Sulfonamides (Antibiotic) Drug allergy (disorder) [facility] (10 sources) rosuvastatin; Translations: [ROSUVASTATIN] Drug Allergy 017 Gastrointestinal Upset [facility] (5 sources) Sulfamethoxazole; Translations: [sulfamethoxazole] Drug Allergy 023 Hives, Hives, ([place]) 08/08/2011 [facility] (7 sources) Trimethoprim; Translations: [TRIMETHOPRIM] Drug Allergy 023 Hives, Hives, ([place]) 08/08/2011 [facility] (6 sources) Fenofibrate; Translations: [FENOFIBRATE] Drug Allergy 009 ([place]) 08/08/2011 [facility] (3 sources) Penicillin Drug Allergy ([place]) 08/08/2011 [facility] Other (6 sources) Substance with sulfonamide structure and antibacterial mechanism of action (substance) Drug allergy 023 Shortness of breath [facility] Other (4 sources) Penicillins Propensity to adverse reactions to drug Hives, Rash [facility] (1 source) Tobramycin Drug Allergy 023 Rash [facility] (3 sources) Fenofibrate; Translations: [FENOFIBRATE MICRONIZED] Drug Allergy 009 [facility] (6 sources) Sulfonamides (Antibiotic); Translations: [SULFA (SULFONAMIDE ANTIBIOTICS)] Propensity to adverse reactions to drug (disorder) Unknown Reaction [facility] (1 source) fluvastatin; Translations: [FLUVASTATIN] Drug Allergy [facility] Rep[facility] (1 source) natural latex rubber; Translations: [LATEX, NATURAL RUBBER] Propensity to adverse reactions to drug (disorder) [facility] Rep[facility] (1 source) Phenazopyridine; Translations: [PHENAZOPYRIDINE] Drug Allergy [facility] Rep[facility] (1 source) Baclofen Drug Allergy [facility] (1 source) Fenofibrate Drug Allergy [facility] (1 source) Latex Drug allergy (disorder) [facility] (1 source) levoFLOXacin Drug Allergy [facility] (1 source) Penicillins Drug allergy (disorder) [facility] Medications Current Medications Medication Drug [...] Atherosclerosis of coronary artery bypass graft of [place] heart without angina pectoris , History of [...] Active Start: 11-01-2022 take 4 tablets by [facility] once daily Citalopram 10 mg tablet Active [...] Discontinued (Dose adjustment) take 2 tablets by [facility] once daily citalopram (CELEXA) 10 MG tablet Take 2 tablets by mouth daily 0 Active clopidogrel 75 mg oral tablet (2 sources) P2Y12 Platelet Inhibitor Start: 09-05-2024 End: 09-05-2025 take 1 tablet by mouth once daily clopidogrel (Plavix) 75 mg tablet Indications: Atherosclerosis of coronary artery bypass graft of [place] heart without angina pectoris , S/P PTCA [...] mouth two times weekly Vitamin D (Ergocalciferol) 62561 UNIT 1 capsule Orally TWICE a Week [...] 3 weeks, then 3x per week thereafter, [employer] #[id number], 160, cm, 04/10/24 15:13:00 EDT, Height/Length Dosing, [...] Start: 04-30-2020 fluticasone 0. 05 mg/inh Nasal [place] Refill(s) 0 Start Date: 04/30/20 Status: Ordered fluticasone 0.05 mg/inh Nasal [place] (3 sources) Start: 04-30-2020 fluticasone 0.05 mg/inh Nasal [place] Refill(s) 0 Start Date: 04/30/20 Status: Ordered [...] day(s), # 45 tab(s), Refills(s) 3, Pharmacy: Pharmacy, 160, cm, 06/02/22 8:29:00 EDT, Height/Length [...] Daily, # 90 tab(s), Refills(s) 3, Pharmacy: Pharmacy, 160, cm, 05/27/21 8:19:00 EDT, Height/Length [...] # 30 tab(s), Refills(s) 11, Pharmacy: [id number], 160, cm, 04/10/24 15:13:00 EDT, Height/Length Dosing, [...] mouth 2 times a day. 0 Active Zejevfifgovq-Pax-Ahef-Fa-Vit K (Bariatric Multivitamins) 45 mg iron- 800 mcg-120 mcg Capsule (4 sources) Start: 11-01-2022 take 1 capsule by mouth twice daily Vurclmpohkcv-Krp-Wzse-Fa-Vit K (Bariatric Multivitamins) 45 mg iron- 800 mcg-120 mcg Capsule Active 1 CAP PO Twice daily November 01, 2022 1:00am Start: 11-01-2022 take 1 capsule by [facility] twice daily Keysqklqamuy-Iuc-Peor-Fa-Vit K (Bariatri c Multivitamins) 45 mg iron- [...] tablet Indications: Atherosclerosis of coronary artery of [place] heart without angina pectoris, unspecified vessel or [...] needed 05/05/2020 Active omega-3 acid ethyl esters (halfway) 1000 mg oral capsule (3 sources) take [...] April 21, 2018 11:01pm polyethylene glycol 3350 113086 mg / potassium chloride 2970 mg / sodium bicarbonate 6740 mg / sodium chloride 5860 mg / sodium sulfate 15119 mg powder for oral solution (3 sources) [...] day(s), # 180 cap(s), Refills(s) 3, Pharmacy: Pharmacy, 160, cm, 05/27/21 8:19:00 EDT, Height/Length Dosing, 61, kg, 05/27/21 8:19:00 EDT, Weight Dosing Start Date: 03/14/22 Stop Date: 03/09/23 Status: Ordered Start: 04-17-2018 take 1 capsule by [facility] once daily tamsulosin (Flomax) 0.4 mg 24 [...] 01, 2022 12:00am take 1 tablet by [facility] every twenty-four hours traMADol HCl 50 MG 1 tablet as needed Orally Once a day Active ubidecarenone 200 mg oral capsule (3 sources) take 1 capsule by [facility] every twenty-four hours Coenzyme Q-10 200 MG 1 capsule with a meal Orally Once a day for 30 day(s) Active vibegron 75 MG Oral Tablet [Gemtesa] (1 source) Start: 04-10-2024 End: 04-05-2025 take 1 tablet by mouth once daily Gemtesa 75 mg oral tablet 75 mg = 1 tab(s), Oral, Daily, X 30 day(s), # 30 tab(s), Refills(s) 11, Pharmacy: [facility] #[id number], 160, cm, 04/10/24 15:13:00 EDT, Height/Length Dosing, [...] a day for 30 day(s) Active vitamins A,C,E-mlvd-oymmag (1 source) Start: 08-19-2024 vitamins A,C,B-vrff-lzjrti Active PO August 19, 2024 12:00am Zyrtec [...] Start: 04-17-2018 take 2 tablets by mo [facility] every four hours as needed for pain Oxycodone-Acetaminophen (Percocet) 5-325 mg tablet Active 2 TAB PO Q4H as needed for pain April 17, 2018 ascorbic acid 226 mg / beta carotene 85631 unt / cuprous oxide 0.8 mg / [...] / neomycin 3.5 mg/ml / polymyxin b 88926 unt/ml ophthalmic suspension (3 sources) Aminoglycoside Antibacterial, Polymyxin-class Antibacterial, Corticosteroid Start: 06-13-2021 take 2 drop(s) into the eye(s) four times daily Neomycin-Polymyxin- HC 3.5-65143-0 Ophthalmic Suspension instill 2 drops INTO AFFECTED [...] sources) Coronary atherosclerosis; Translations: [Coronary atherosclerosis of [place] coronary artery] Onset: 2 Chronic Coronary atherosclerosis [...] 4 08-18-2024 Episodic Other aftercare (1 source) [facility] (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; Translations: [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 FINISHER CURRENT USE OF ASPIRIN] Onset: 3 Episodic Other aftercare (1 source) Other [facility] (current) drug therapy; Translations: [OTH CARE HOME CURRENT DRUG THERAPY] Onset: 3 Episodic Other [...] Unclassified (1 source) Athscl heart disease of [place] coronary artery w/o ang pctrs / I25.10(ICD-9) [...] lead ECGon 08-22-2024 ECG 12 lead ECG [facility] [address] [place] [address] [place] [address] Electrocardiograph Report Signed Patient: Jose Alberto Saleem MR#: [id number] 571 : 1965 Acct:[id number] Age/Sex: 59 / F ADM Date: 08/20/24 Loc: Room: [address] [place] [address] Type: DIS IN Attending Dr: Kaiser Quijano [...] abnormality Abnormal ECG Confirmed by Bella Stein ([id number]) on 08/22/2024 11:33:07 PM Referred By: Bella Stein Electronically Signed By: Bella Stein Transcribed By: MUS Signed By Bella Stein MD 4 2333 Normal [facility] Troponin I High Sensitivityo n 08-22-2024 Troponin I High Sensitivity 1211.6 pg/mL Off scale high 0.0-15.0 [facility] Comment on above: Result Comment: Crit ical Result : Called to and read back by: ROB MCDONALD at: 08/22/2024 06:38:37 by:RAMONA PERFORMED BY: [place] [address] PATHOLOGIST MANAGER COMMUNICATION JANA OLMEDO M.D. Performed By: #### H S TROP ####[facility] [id number] [place] [id number] [facility] Blood Urea Nitrogenon 2023 Urea nitrogen [Mass/Vol] 14 mg/dL Normal 7-25 [facility] Comment on above: Performed By: #### C REAT, BUN, PP, CBC, LYTES ####[facility] [place] [id number] [facility] Coagulation Profileon 2023 aPTT Coag (Bld) [Time] 35.9 s Normal 25.1-36.5 [facility] Comment on above: Result Comment: A he matocrit value greater than 55% may lead to inaccurate results in coagulation testing. Patients having hematocrit values >55% require a special collection tube for coagulation studies. Please contact the laboratory at [phone] for redraw instructions. PERFORMED BY: [address] RADAMESReneFawad [place] [id number] PATHOLOGIST MANAGER COMMUNICATION JANA OLMEDO M.D. Performed By: #### C REAT, BUN, PP, CBC, LYTES ####[place] [address] [place] [id number] [facility] INR Coag (PPP) [Relative time] 1.1 {INR} Normal [facility] Comment on above: [...] #### C REAT, BUN, PP, CBC, LYTES ####[place] [address] [place] [address] [facility] PT Coag (PPP) [Time] 12.2 s Normal 9.0-12.9 [facility] Comment on above: Result Comment: A he matocrit value greater than 55% may lead to inaccurate results in coagulation testing. Patients having hematocrit values >55% require a special collection tube for coagulation studies. Please contact the laboratory at [phone] for redraw instructions. Performed By: #### C REAT, BUN, PP, CBC, LYTES ####[address] Complete Blood Count Auto Di ffon 08-21-2024 Basophils (Bld) [#/Vol] 0.0 10*3/uL Normal 0.0-0.2 [facility] Comment on above: Result Comment: PERF ORMED BY: [facility] [address] [place] [address] PATHOLOGIST MANAGER COMMUNICATION JANA OLMEDO M.D. Performed By: #### C REAT, BUN, PP, CBC, LYTES ####[address] Basophils/100 WBC (Bld) 0.3 % Normal . [facility] Comment on above: Performed By: #### C REAT, BUN, PP, CBC, LYTES ####[address] Eosinophils (Bld) [#/Vol] 0.2 10*3/uL Normal 0.0-0.45 [facility] Comment on above: Performed By: #### C REAT, BUN, PP, CBC, LYTES ####[address] Eosinophils/100 WBC (Bld) 3.9 % Normal . [facility] Comment on above: Performed By: #### C REAT, BUN, PP, CBC, LYTES ####[address] Erythrocyte distribution width (RBC) [Ratio] 12.7 % Normal 11.9-15.3 [facility] Comment on above: Performed By: #### C REAT, BUN, PP, CBC, LYTES ####[address] Hematocrit (Bld) [Volume fraction] 42.5 % Normal 34.0-46.4 [facility] Comment on above: Performed By: #### C REAT, BUN, PP, CBC, LYTES ####[address] [place] [address] [place] Hemoglobin (Bld) [Mass/Vol] 14.6 g/dL Normal 11.8-15.4 [facility] Comment on above: Performed By: #### C REAT, BUN, PP, CBC, LYTES ####[address] Lymphocytes (Bld) [#/Vol] 1.7 10*3/uL Normal 1.00-4.8 [facility] Comment on above: Performed By: #### C REAT, BUN, PP, CBC, LYTES ####[address] Lymphocytes/100 WBC (Bld) 35.0 % Normal . [facility] Comment on above: Performed By: #### C REAT, BUN, PP, CBC, LYTES ####[address] MCH (RBC) [Entitic mass] 30.8 pg Normal 24.7-34.3 [facility] Comment on above: Performed By: #### C REAT, BUN, PP, CBC, LYTES ####[address] MCV (RBC) [Entitic vol] 89.8 fL Normal 80-100 [facility] Comment on above: Performed By: #### C REAT, BUN, PP, CBC, LYTES ####[address] Mean Corpuscular HGB Conc 34.3 g/dL Normal 32.0-35.0 [facility] Comment on above: Performed By: #### C REAT, BUN, PP, CBC, LYTES ####[address] Monocytes (Bld) [#/Vol] 0.5 10*3/uL Normal 0.0-0.8 [facility] Comment on above: Performed By: #### C REAT, BUN, PP, CBC, LYTES ####[address] [place] [address] [place] Monocytes/100 WBC (Bld) 10.9 % Normal . [facility] Comment on above: Performed By: #### C REAT, BUN, PP, CBC, LYTES ####[address] Neutrophils (Bld) [#/Vol] 2.5 10*3/uL Normal 1.8-7.7 [facility] Comment on above: Performed By: #### C REAT, BUN, PP, CBC, LYTES ####[address] Neutrophils/100 WBC (Bld) 49.9 % Normal . [facility] Comment on above: Performed By: #### C REAT, BUN, PP, CBC, LYTES ####[address] NRBC% 0.1 /100{WBC} Normal 0-0.5 [facility] Comment on above: Performed By: #### C REAT, BUN, PP, CBC, LYTES ####[address] Platelet mean volume (Bld) [Entitic vol] 7.7 fL Normal 6.3-10.7 [facility] Comment on above: Performed By: #### C REAT, BUN, PP, CBC, LYTES ####[address] Platelets (Bld) [#/Vol] 172 10*3/uL Normal 150-450 [facility] Comment on above: Performed By: #### C REAT, BUN, PP, CBC, LYTES ####[address] RBC (Bld) [#/Vol] 4.73 10*6/uL Normal 3.60-5.00 [facility] Comment on above: Performed By: #### C REAT, BUN, PP, CBC, LYTES ####[address] WBC (Bld) [#/Vol] 4.9 10*3/uL Normal 3.8-11.6 [facility] Comment on above: Performed By: #### C REAT, BUN, PP, CBC, LYTES ####[place] [address] [place] [id number] [facility] Creatinineon 08-21-2024 Creatinine [Mass/Vol] 0.61 mg/dL Normal 0.60-1.20 [facility] Comment on above: Performed By: #### C REAT, BUN, PP, CBC, LYTES ####[place] [address] [place] [id number] [facility] Creatinine Clr Calc Pharmacy 97.73 Normal [facility] Comment on above: Result Comment: PERF ORMED BY: [place] [address] PATHOLOGIST MANAGER COMMUNICATION JANA OLMEDO M.D. Performed By: #### C REAT, BUN, PP, CBC, LYTES ####[place] [address] GFR/1.73 sq M.predicted MDRD (S/P/Bld) [Vol rate/Area] mL/min/{1.73_m2} Normal [facility] Comment on above: Performed By: #### C REAT, BUN, PP, CBC, LYTES ####[place] [id number] [facility] ECG 12 lead ECGon 08-21-2024 ECG 12 lead ECG [facility] [place] [address] Electrocardiograph Report Signed Patient: Jose Alberto Saleem MR#: [id number] 571 : 1965 Acct:[id number] Age/Sex: 59 / F ADM Date: 08/20/24 Loc: 4 Room: [address] [place] [address] Type: DIS IN Attending Dr: Kaiser Quijano [...] abnormality Abnormal ECG Confirmed by Bella Stein ([id number]) on 08/22/2024 11:33:52 PM Referred By: Bella Stein Electronically Signed By: Bella Stein Transcribed By: MUS Signed By Bella Stein MD 4 2333 Normal [facility] Electrolyteson 08-21-2024 Anion gap [Moles/Vol] 11.0 mmol/L Normal 6.0-15.0 [facility] Comment on above: Performed By: #### C REAT, BUN, PP, CBC, LYTES ####[address] Chloride [Moles/Vol] 105 mmol/L Normal 98-107 [facility] Comment on above: Performed By: #### C REAT, BUN, PP, CBC, LYTES ####[address] CO2 [Moles/Vol] 27.9 mmol/L Normal 21.0-31.0 [facility] Comment on above: Performed By: #### C REAT, BUN, PP, CBC, LYTES ####[place] [id number] [facility] Potassium [Moles/Vol] 3.9 mmol/L Normal 3.5-5.1 [facility] Comment on above: Performed By: #### C REAT, BUN, PP, CBC, LYTES ####[place] [id number] [facility] Sodium [Moles/Vol] 140 mmol/L Normal 136-145 [facility] Comment on above: Performed By: #### C REAT, BUN, PP, CBC, LYTES ####[place] [id number] [facility] NM lia perf SPECT rest stron 08-20-2024 NM lia perf SPECT rest str [facility] Main [place] [id number] Nuclear Medicine Report Signed Patient: Jose Alberto Saleem MR#: [id number] 571 : 1965 Acct:[id number] Age/Sex: 59 / F ADM Date: 08/18/24 Loc: Room: [address] [place] [address] Type: ADM INOo Attending Dr: Chucky Dunn [...] Bella Stein M.D.08/20/2024 3:56 PM Dictation Location: [place] [address] Transcribed By: [facility] 08/20/24 1556 Dictated By: Bella Stein MD 08/20/24 1552 Signed By: 08/20/24 155 Normal [facility] A1C with Estimated Average G ajay 08-19-2024 Glucose [Mass/Vol] 117 mg/dL Normal [facility] Comment on above: Result Comment: PERF ORMED BY: [place] [address] PATHOLOGIST MANAGER COMMUNICATION JANA OLMEDO M.D. Performed By: #### A 1C [facility] eA, HS TROP ####[facility] [id number] [place] [address] [facility] HbA1c (Bld) [Mass fraction] 5.7 % High 4.3-5.6 [facility] Comment on above: Result Comment: Incr eased risk for diabetes: 5.7 - 6.4 diabetes: >6.4 glycemic control for adults with diabetes: <7.0 Performed By: #### A 1C [facility] eA, HS TROP ####[facility] [id number] [place] [address] [facility] ECG 12 lead ECGon 08-19-2024 ECG 12 lead ECG [facility] [place] [address] Electrocardiograph Report Signed Patient: Jose Alberto Saleem MR#: [id number] 571 : 1965 Acct:[id number] Age/Sex: 59 / F ADM Date: 08/18/24 Loc: Room: [address] [place] [address] Type: ADM INOo Attending Dr: Chucky Dunn [...] abnormality Abnormal ECG Confirmed by Bella Stein ([id number]) on 08/21/2024 12:00:39 AM Referred By: Bella Stein Electronically Signed By: Bella Stein Transcribed By: MUS Signed By Bella Stein MD 4 0000 Normal [facility] ECG 12 lead ECG [facility] [place] [address] Electrocardiograph Report Signed Patient: Jose Alberto Saleem MR#: [id number] 571 : 1965 Acct:[id number] Age/Sex: 59 / F ADM Date: 08/18/24 Loc: 3T Room: [address] [place] [address] Type: ADM INOo Attending Dr: Chucky Dunn [...] rhythm Leftward axis Confirmed by Torsten Monreal ([id number]) on 08/20/2024 11:52:24 PM Referred By: Bella Stein Electronically Signed By: Torsten Monreal Transcribed By: MUS Signed By Torsten Monreal MD 08/20/24 2352 Normal [facility] Troponin I High Sensitivityo n 08-19-2024 Troponin I High Sensitivity 4.6 pg/mL Normal 0.0-15.0 [facility] Comment on above: Result Comment: PERF ORMED BY: [place] [address] PATHOLOGIST MANAGER COMMUNICATION JANA OLMEDO M.D. Performed By: #### A 1C [facility], TROP ####[facility] [id number] X-ray reportOrdered By: Anna Wick on 08-19-2024 Study report [facility] [address] [place] [address] XRay Report Signed Patient: Jose Alberto Saleem MR#: [id number] : 1965 Acct:[id number] Age/Sex: 59 / F ADM Date: 4 Loc: 3T Room: [address] [place] [address] Type: ADM INOo Attending Dr: Donis Arroyo [...] Thelma Wick M.D.08/19/2024 12:10 AM Dictation Location: [place] [address] Transcribed By: [facility] 08/19/249 Dictated By: Thelma Wick MD 08/18/242210 Signed By: 08/19/249 [facility] Work Phone: Alanine aminotransferase [En zymatic activity/volume] in Serum or PlasmaOrdered By: Lynnette Chapman on 08-18-2024 ALT [Catalytic activity/Vol] Alanine aminotransferase [Enzymatic activity/volume] in Serum or Plasma 7-52 [facility] Albumin [Mass/volume] in Ser um or Plasma by Bromocresol green (BCG) dye binding methoOrdered By: Lynnette Chapman on 08-18-2024 Albumin BCG dye [Mass/Vol] Albumin [Mass/volume] in Serum or Plasma by Bromocresol green (BCG) dye binding metho 3.5-5.7 [facility] Alkaline phosphatase [Enzyma tic activity/volume] in Serum or PlasmaOrdered By: Lynnette Chapman on 08-18-2024 ALP [Catalytic activity/Vol] Alkaline phosphatase [Enzymatic activity/volume] in Serum or Plasma 34-104 [facility] Aspartate aminotransferase [ Enzymatic activity/volume] in Serum or PlasmaOrdered By: Lynnette Chapman on 08-18-2024 AST [Catalytic activity/Vol] Aspartate aminotransferase [Enzymatic activity/volume] in Serum or Plasma 13-39 [facility] B-Type Natriuretic Peptideon 08-18-2024 Natriuretic peptide B (Bld) [Mass/Vol] 31.0 pg/mL Normal 5-100 [facility] Comment on above: Result Comment: PERF ORMED BY: [place] [address] PATHOLOGIST MANAGER COMMUNICATION JANA OLMEDO M.D. Performed By: #### H S TROP, LIPASE, PT, BMP, HEPATIC, CK, CBC, BNP ####[address] Basic Metabolic Panelon 08-01 Anion gap [Moles/Vol] 10.7 mmol/L Normal 6.0-15.0 e [facility] Comment on above: Performed By: #### H S TROP, LIPASE, PT, BMP, HEPATIC, CK, CBC, BNP #### [address] Performed By: #### H S TROP, LIPASE, PT, BMP, HEPATIC, CK, CBC, BNP ####[address] Calcium [Mass/Vol] 10.1 mg/dL Normal 8.6-10.3 [facility] Comment on above: Performed By: #### H S TROP, LIPASE, PT, BMP, HEPATIC, CK, CBC, BNP #### [address] Performed By: #### H S TROP, LIPASE, PT, BMP, HEPATIC, CK, CBC, BNP ####[address] Chloride [Moles/Vol] 102 mmol/L Normal 98-107 [facility] Comment on above: Performed By: #### H S TROP, LIPASE, PT, BMP, HEPATIC, CK, CBC, BNP #### [address] Performed By: #### H S TROP, LIPASE, PT, BMP, HEPATIC, CK, CBC, BNP ####[address] CO2 [Moles/Vol] 28.4 mmol/L Normal 21.0-31.0 [facility] Comment on above: Performed By: #### H S TROP, LIPASE, PT, BMP, HEPATIC, CK, CBC, BNP #### [address] Performed By: #### H S TROP, LIPASE, PT, BMP, HEPATIC, CK, CBC, BNP ####[address] Creatinine [Mass/Vol] 0.62 mg/dL Normal 0.60-1.20 [facility] Comment on above: Performed By: #### H S TROP, LIPASE, PT, BMP, HEPATIC, CK, CBC, BNP #### [address] Performed By: #### H S TROP, LIPASE, PT, BMP, HEPATIC, CK, CBC, BNP ####[address] Creatinine Clr Calc Pharmacy 95.72 Normal [facility] Comment on above: Result Comment: PERF ORMED BY: [place] [address] PATHOLOGIST MANAGER COMMUNICATION JANA OLMEDO M.D. Performed By: #### H S TROP, LIPASE, PT, BMP, HEPATIC, CK, CBC, BNP #### [address] Performed By: #### H S TROP, LIPASE, PT, BMP, HEPATIC, CK, CBC, BNP ####[address] GFR/1.73 sq M.predicted MDRD (S/P/Bld) [Vol rate/Area] mL/min/{1.73_m2} Normal [facility] Comment on above: Performed By: #### H S TROP, LIPASE, PT, BMP, HEPATIC, CK, CBC, BNP #### [address] Performed By: #### H S TROP, LIPASE, PT, BMP, HEPATIC, CK, CBC, BNP ####[address] Glucose [Mass/Vol] 94 mg/dL Normal 70-100 [facility] Comment on above: Result Comment: [facility] [place][note 2] Glucose Reference Range is dependent on time and content of last meal. Glucose of more than 200 mg/dL in a nonstressed, ambulatory subject supports the diagnosis of Diabetes Mellitus. ADA recommended reference range Performed By: #### H S TROP, LIPASE, PT, BMP, HEPATIC, CK, CBC, BNP #### [address] Performed By: #### H S TROP, LIPASE, PT, BMP, HEPATIC, CK, CBC, BNP ####[address] Potassium [Moles/Vol] 4.1 mmol/L Normal 3.5-5.1 [facility] Comment on above: Performed By: #### H S TROP, LIPASE, PT, BMP, HEPATIC, CK, CBC, BNP #### [address] Performed By: #### H S TROP, LIPASE, PT, BMP, HEPATIC, CK, CBC, BNP ####[address] Sodium [Moles/Vol] 137 mmol/L Normal 136-145 [facility] Comment on above: Performed By: #### H S TROP, LIPASE, PT, BMP, HEPATIC, CK, CBC, BNP #### [address] Performed By: #### H S TROP, LIPASE, PT, BMP, HEPATIC, CK, CBC, BNP ####[address] Urea nitrogen [Mass/Vol] 22 mg/dL Normal 7-25 [facility] Comment on above: Performed By: #### H S TROP, LIPASE, PT, BMP, HEPATIC, CK, CBC, BNP #### [address] Performed By: #### H S TROP, LIPASE, PT, BMP, HEPATIC, CK, CBC, BNP ####[facility] [address] [place] [address] [facility] Basophils Auto (Bld) [#/Vol] Ordered By: Lynnette Chapman on 08-18-2024 Basophils (Bld) [#/Vol] Automated basophil count 0.0-0.2 [facility] Basophils/100 WBC Auto (Bld) Ordered By: Lynnette Chapman on 08-18-2024 Basophils/100 WBC (Bld) Automated basophil % . [facility] Bilirubin.direct [Mass/volum e] in Serum or PlasmaOrdered By: Lynnette Chapman on 08-18-2024 Bilirubin.direct [Mass/Vol] Bilirubin.direct [Mass/volume] in Serum or Plasma 0.03-0.18 [facility] Bilirubin.total [Mass/volume ] in Serum or PlasmaOrdered By: Lynnette Chapman on 08-18-2024 Bilirubin [Mass/Vol] Bilirubin.total [Mass/volume] in Serum or Plasma 0.3-1.0 [facility] Calcium [Mass/volume] in Ser um or PlasmaOrdered By: Lynnette Chapman on 08-18-2024 Calcium [Mass/Vol] Calcium [Mass/volume ] in Serum or Plasma 8.6-10.3 [facility] Carbon dioxide, total [Moles /volume] in Serum or PlasmaOrdered By: Lynnette Chapman on 08-18-2024 CO2 [Moles/Vol] Carbon dioxide, tota l [Moles/volume] in Serum or Plasma 21.0-31.0 [facility] Chloride [Moles/volume] in S nina or PlasmaOrdered By: Lynnette Chapman on 08-18-2024 Chloride [Moles/Vol] Chloride [Moles/vol ume] in Serum or Plasma 98-107 [facility] Complete Blood Count Auto Di ffon 08-18-2024 Basophils (Bld) [#/Vol] 0.0 10*3/uL Normal 0.0-0.2 [facility] Comment on above: Result Comment: PERF ORMED BY: [facility] [address] [place] [address] PATHOLOGIST MANAGER COMMUNICATION JANA OLMEDO M.D. Performed By: #### H S TROP, LIPASE, PT, BMP, HEPATIC, CK, CBC, BNP #### [address] Basophils/100 WBC (Bld) 0.7 % Normal . [facility] Comment on above: Performed By: #### H S TROP, LIPASE, PT, BMP, HEPATIC, CK, CBC, BNP #### [address] Eosinophils (Bld) [#/Vol] 0.2 10*3/uL Normal 0.0-0.45 [facility] Comment on above: Performed By: #### H S TROP, LIPASE, PT, BMP, HEPATIC, CK, CBC, BNP #### [address] Eosinophils/100 WBC (Bld) 3.5 % Normal . [facility] Comment on above: Performed By: #### H S TROP, LIPASE, PT, BMP, HEPATIC, CK, CBC, BNP #### [address] Erythrocyte distribution width (RBC) [Ratio] 12.6 % Normal 11.9-15.3 [facility] Comment on above: Performed By: #### H S TROP, LIPASE, PT, BMP, HEPATIC, CK, CBC, BNP #### [address] Hematocrit (Bld) [Volume fraction] 43.7 % Normal 34.0-46.4 [facility] Comment on above: Performed By: #### H S TROP, LIPASE, PT, BMP, HEPATIC, CK, CBC, BNP #### [address] Hemoglobin (Bld) [Mass/Vol] 15.1 g/dL Normal 11.8-15.4 [facility] Comment on above: Performed By: #### H S TROP, LIPASE, PT, BMP, HEPATIC, CK, CBC, BNP #### [address] Lymphocytes (Bld) [#/Vol] 2.2 10*3/uL Normal 1.00-4.8 [facility] Comment on above: Performed By: #### H S TROP, LIPASE, PT, BMP, HEPATIC, CK, CBC, BNP #### [address] Lymphocytes/100 WBC (Bld) 36.5 % Normal . [facility] Comment on above: Performed By: #### H S TROP, LIPASE, PT, BMP, HEPATIC, CK, CBC, BNP #### [address] MCH (RBC) [Entitic mass] 30.7 pg Normal 24.7-34.3 [facility] Comment on above: Performed By: #### H S TROP, LIPASE, PT, BMP, HEPATIC, CK, CBC, BNP #### [address] MCV (RBC) [Entitic vol] 88.8 fL Normal 80-100 [facility] Comment on above: Performed By: #### H S TROP, LIPASE, PT, BMP, HEPATIC, CK, CBC, BNP #### [address] Mean Corpuscular HGB Conc 34.5 g/dL Normal 32.0-35.0 [facility] Comment on above: Performed By: #### H S TROP, LIPASE, PT, BMP, HEPATIC, CK, CBC, BNP #### [address] Monocytes (Bld) [#/Vol] 0.6 10*3/uL Normal 0.0-0.8 [facility] Comment on above: Performed By: #### H S TROP, LIPASE, PT, BMP, HEPATIC, CK, CBC, BNP #### [address] Monocytes/100 WBC (Bld) 16.97 % Normal 0.00-20.00 [facility] Comment on above: Performed By: #### H S TROP, LIPASE, PT, BMP, HEPATIC, CK, CBC, BNP #### [address] Monocytes/100 WBC (Bld) 10.5 % Normal . [facility] Comment on above: Performed By: #### H S TROP, LIPASE, PT, BMP, HEPATIC, CK, CBC, BNP #### [address] Neutrophils (Bld) [#/Vol] 3.0 10*3/uL Normal 1.8-7.7 [facility] Comment on above: Performed By: #### H S TROP, LIPASE, PT, BMP, HEPATIC, CK, CBC, BNP #### [address] Neutrophils/100 WBC (Bld) 48.8 % Normal . [facility] Comment on above: Performed By: #### H S TROP, LIPASE, PT, BMP, HEPATIC, CK, CBC, BNP #### [address] NRBC% 0.1 /100{WBC} Normal 0-0.5 [facility] Comment on above: Performed By: #### H S TROP, LIPASE, PT, BMP, HEPATIC, CK, CBC, BNP #### [address] Platelet mean volume (Bld) [Entitic vol] 7.9 fL Normal 6.3-10.7 [facility] Comment on above: Performed By: #### H S TROP, LIPASE, PT, BMP, HEPATIC, CK, CBC, BNP #### [address] Platelets (Bld) [#/Vol] 204 10*3/uL Normal 150-450 [facility] Comment on above: Performed By: #### H S TROP, LIPASE, PT, BMP, HEPATIC, CK, CBC, BNP #### [address] RBC (Bld) [#/Vol] 4.92 10*6/uL Normal 3.60-5.00 [facility] Comment on above: Performed By: #### H S TROP, LIPASE, PT, BMP, HEPATIC, CK, CBC, BNP #### [facility] [address] WBC (Bld) [#/Vol] 6.1 10*3/uL Normal 3.8-11.6 [facility] Comment on above: Performed By: #### H S TROP, LIPASE, PT, BMP, HEPATIC, CK, CBC, BNP #### [facility] [address] Creatine Kinaseon 08-18-2024 CK [Catalytic activity/Vol] 53 U/L Normal 30-223 [facility] Comment on above: Performed By: #### H S TROP, LIPASE, PT, BMP, HEPATIC, CK, CBC, BNP ####[facility] [id number] Creatine kinase [Enzymatic a ctivity/volume] in Serum or PlasmaOrdered By: Lynnette Chapman on 08-18-2024 CK [Catalytic activity/Vol] Creatine kinase [Enzymatic activity/volume] in Serum or Plasma 30-223 [facility] Creatinine [Mass/volume] in Serum or PlasmaOrdered By: Lynnette Chapman on 08-18-2024 Creatinine [Mass/Vol] Creatinine [Mass/v olume] in Serum or Plasma 0.60-1.20 [facility] ECG 12 lead ECGon 08-18-2024 ECG 12 lead ECG [facility] [address] [place] [address] Electrocardiograph Report Signed Patient: Jose Alberto Saleem MR#: [id number] : 1965 Acct:[id number] Age/Sex: 59 / F ADM Date: 08/18/24 Loc: ER Room: Type: [facility] ER Attending Dr: Ordering Provider: Lynnette [...] wave abnormality Confirmed by Lynnette Chapman MD ([id number]) on 08/18/2024 11:22:40 PM Referred By: Electronically Signed By: Lynnette Chapman MD Transcribed By: MUS Signed By Lynnette Chapman MD 08/01 05/24 2322 Normal [facility] Eosinophils Auto (Bld) [#/Vo l]Ordered By: Lynnette Chapman on 08-18-2024 Eosinophils (Bld) [#/Vol] Automated eosinophil count 0.0-0.45 [facility] Eosinophils/100 WBC Auto (Bl d)Ordered By: Lynnette Chapman on 08-18-2024 Eosinophils/100 WBC (Bld) Automated eosinophil % . [facility] Erythrocyte distribution wid th Auto (RBC) [Ratio]Ordered By: Lynnette Chapman on 08-18-2024 Erythrocyte distribution width (RBC) [Ratio] Erythrocyte distribution width [Ratio] by Automated count 11.9-15.3 [facility] Globulin Calc (S) [Mass/Vol] Ordered By: Lynnette Chapman on 08-18-2024 Globulin (S) [Mass/Vol] Serum globulin measurement by calculation (mass/volume) [facility] Glucose [Mass/volume] in Ser um or PlasmaOrdered By: Lynnette Chapman on 08-18-2024 Glucose [Mass/Vol] Glucose [Mass/volume ] in Serum or Plasma 70-100 [facility] Comment on above: ADA recommended refe rence rangeRandom Glucose Reference Range is dependent on time and content of last meal. Glucose of more than 200 mg/dL in a nonstressed, ambulatory subject supports the diagnosis of Diabetes Mellitus. Hematocrit Auto (Bld) [Volum e fraction]Ordered By: Lynnette Chapman on 08-18-2024 Hematocrit (Bld) [Volume fraction] Hematocrit [Volume Fraction] of Blood by Automated count 34.0-46.4 [facility] Hemoglobin [Mass/volume] in BloodOrdered By: Lynnette Chapman on 08-18-2024 Hemoglobin (Bld) [Mass/Vol] Hemoglobin [Mass/volume] in Blood 11.8-15.4 [facility] Hepatic Panelon 08-18-2024 Albumin [Mass/Vol] 4.3 g/dL Normal 3.5-5.7 [facility] Comment on above: Performed By: #### H S TROP, LIPASE, PT, BMP, HEPATIC, CK, CBC, BNP ####[address] Albumin/Globulin [Mass ratio] 1.7 {ratio} Normal [facility] Comment on above: Performed By: #### H S TROP, LIPASE, PT, BMP, HEPATIC, CK, CBC, BNP ####[address] ALP [Catalytic activity/Vol] 89 U/L Normal 34-104 [facility] Comment on above: Performed By: #### H S TROP, LIPASE, PT, BMP, HEPATIC, CK, CBC, BNP ####[address] ALT [Catalytic activity/Vol] 42 U/L Normal 7-52 [facility] Comment on above: Performed By: #### H S TROP, LIPASE, PT, BMP, HEPATIC, CK, CBC, BNP ####[address] AST [Catalytic activity/Vol] 31 U/L Normal 13-39 [facility] Comment on above: Performed By: #### H S TROP, LIPASE, PT, BMP, HEPATIC, CK, CBC, BNP ####[address] Bilirubin [Mass/Vol] 0.4 mg/dL Normal 0.3-1.0 [facility] Comment on above: Performed By: #### H S TROP, LIPASE, PT, BMP, HEPATIC, CK, CBC, BNP ####[address] Bilirubin,Indirect 0.3 mg/dL Normal [facility] Comment on above: Performed By: #### H S TROP, LIPASE, PT, BMP, HEPATIC, CK, CBC, BNP ####[address] Bilirubin.indirect [Mass/Vol] 0.10 mg/dL Normal 0.03-0.18 [facility] Comment on above: Performed By: #### H S TROP, LIPASE, PT, BMP, HEPATIC, CK, CBC, BNP ####[facility] [place] [id number] [facility] Globulin (S) [Mass/Vol] 2.6 g/dL Normal [facility] Comment on above: Performed By: #### H S TROP, LIPASE, PT, BMP, HEPATIC, CK, CBC, BNP ####[place] [address] [place] [id number] [facility] Protein [Mass/Vol] 6.9 g/dL Normal 6.4-8.9 [facility] Comment on above: Performed By: #### H S TROP, LIPASE, PT, BMP, HEPATIC, CK, CBC, BNP ####[place] [address] [place] [id number] [facility] INR in Platelet poor plasma by Coagulation assayOrdered By: Lynnette Chapman on 08-18-2024 INR Coag (PPP) [Relative time] INR in Platelet poor plasma by Coagulation assay [facility] Comment on above: INR Therapeutic Rang [...] erythrocytes in Blood by Automated coun 3.8-11.6 [facility] Lipaseon 08-18-2024 Lipase [Catalytic activity/Vol] 110.0 U/L High 11.0-82.0 [facility] Comment on above: Result Comment: PERF ORMED BY: [facility] [address] [place] [id number] PATHOLOGIST MANAGER COMMUNICATION JANA OLMEDO M.D. Performed By: #### H S TROP, LIPASE, PT, BMP, HEPATIC, CK, CBC, BNP ####[facility] [id number] [place] [id number] [facility] Lipase [Enzymatic activity/v olume] in Serum or PlasmaOrdered By: Lynnette Chapman on 08-18-2024 Lipase [Catalytic activity/Vol] Lipase [Enzymatic activity/volume] in Serum or Plasma High 11.0-82.0 [facility] Lymphocytes Auto (Bld) [#/Vo l]Ordered By: Lynnette Chapman on 08-18-2024 Lymphocytes (Bld) [#/Vol] Lymphocytes [#/volume] in Blood by Automated count 1.00-4.8 [facility] Lymphocytes/100 WBC Auto (Bl d)Ordered By: Lynnette Chapman on 08-18-2024 Lymphocytes/100 WBC (Bld) Lymphocytes/100 leukocytes in Blood by Automated count . [facility] MCH Auto (RBC) [Entitic mass ]Ordered By: Lynnette Chapman on 08-18-2024 MCH (RBC) [Entitic mass] MCH [Entitic mass] by Automated count 24.7-34.3 [facility] MCHC Auto (RBC) [Mass/Vol]Or dered By: Lynnette Chapman on 08-18-2024 MCHC (RBC) [Mass/Vol] MCHC [Mass/volume] by Automated count 32.0-35.0 [facility] MCV Auto (RBC) [Entitic vol] Ordered By: Lynnette Chapman on 08-18-2024 MCV (RBC) [Entitic vol] MCV [Entitic volume] by Automated count 80-100 [facility] Monocyte distribution width [Entitic volume] in Blood by AutomatedOrdered By: Lynnette Chapman on 08-18-2024 Monocyte distribution width Auto (Bld) [Entitic vol] Monocyte distribution width [Entitic volume] in Blood by Automated 0.00-20.00 [facility] Monocytes Auto (Bld) [#/Vol] Ordered By: Lynnette Chapman on 08-18-2024 Monocytes (Bld) [#/Vol] Automated blood monocyte count 0.0-0.8 [facility] Monocytes/100 WBC Auto (Bld) Ordered By: Lynnette Chapman on 08-18-2024 Monocytes/100 WBC (Bld) Automated monocyte % . [facility] Natriuretic peptide B [Mass/ Vol]Ordered By: Lynnette Chapman on 08-18-2024 Natriuretic peptide B (Bld) [Mass/Vol] BNP ser/plas 5-100 [facility] Neutrophils Auto (Bld) [#/Vo l]Ordered By: Lynnette Chapman on 08-18-2024 Neutrophils (Bld) [#/Vol] Neutrophils [#/volume] in Blood by Automated count 1.8-7.7 [facility] Neutrophils/100 WBC Auto (Bl d)Ordered By: Lynnette Chapman on 08-18-2024 Neutrophils/100 WBC (Bld) Automated neutrophil % . [facility] No Panel InformationOrdered By: Lynnette Chapman on 08-18-2024 Estimated GFR (CKD-EPI) > 60.0 mL/Min [facility] Creatinine Clearance (Chem 95.72 [facility] Nucleated erythrocytes [Pres ence] in Blood by Automated countOrdered By: Lynnette Chapman on 08-18-2024 Nucleated RBC Auto Ql (Bld) Nucleated erythrocytes [Presence] in Blood by Automated count 0-0.5 [facility] Platelet mean volume Auto (B ld) [Entitic vol]Ordered By: Lynnette Chapman on 08-18-2024 Platelet mean volume (Bld) [Entitic vol] Platelet mean volume [Entitic volume] in Blood by Automated count 6.3-10.7 [facility] Platelets Auto (Bld) [#/Vol] Ordered By: Lynnette Chapman on 08-18-2024 Platelets (Bld) [#/Vol] Platelets [#/volume] in Blood by Automated count 150-450 [facility] Potassium [Moles/volume] in Serum or PlasmaOrdered By: Lynnette Chapman on 08-18-2024 Potassium [Moles/Vol] Potassium [Moles/v olume] in Serum or Plasma 3.5-5.1 [facility] Protein [Mass/volume] in Ser um or PlasmaOrdered By: Lynnette Chapman on 08-18-2024 Protein [Mass/Vol] Protein [Mass/volume ] in Serum or Plasma 6.4-8.9 [facility] Prothrombin Time INRon 11-18 -2024 INR Coag (PPP) [Relative time] 1.0 {INR} Normal [facility] Comment on above: [...] heart valves: 3 - 4.5 PERFORMED BY: [place] [address] PATHOLOGIST MANAGER COMMUNICATION JANA OLMEDO M.D. Performed By: #### H S TROP, LIPASE, PT, BMP, HEPATIC, CK, CBC, BNP #### [facility] [address] [place] [address] PT Coag (PPP) [Time] 11.7 s Normal 9.0-12.9 [facility] Comment on above: Result Comment: A he matocrit value greater than 55% may lead to inaccurate results in coagulation testing. Patients having hematocrit values >55% require a special collection tube for coagulation studies. Please contact the laboratory at [phone] for redraw instructions. Performed By: #### H S TROP, LIPASE, PT, BMP, HEPATIC, CK, CBC, BNP #### [facility] [address] [place], [place] [id number] [facility] Prothrombin time (PT)Ordered By: Lynnette Chapman on 08-18-2024 PT Coag (PPP) [Time] Prothrombin time (PT) 9.0- 12.9 [facility] Comment on above: A hematocrit value g reater than 55% may lead to inaccurate results in coagulation testing. Patients having hematocrit values >55% require a special collection tube for coagulation studies. Please contact the laboratory at [phone] for redraw instructions. RBC Auto (Bld) [#/Vol]Ordere d By: Lynnette Chapman on 08-18-2024 RBC (Bld) [#/Vol] Erythrocytes [#/volu me] in Blood by Automated count 3.60-5.00 [facility] Serum or plasma albumin/glob ulin mass ratioOrdered By: Lynnette Chapman on 08-18-2024 Albumin/Globulin [Mass ratio] Serum or plasma albumin/globulin mass ratio [facility] Serum or plasma anion gap de terminationOrdered By: Lynnette Chapman on 08-18-2024 Anion gap [Moles/Vol] Serum or plasma an ion gap determination 6.0-15.0 [facility] Serum or plasma non-glucuron idated bilirubin measurement (mass/volume)Ordered By: Lynnette Chapman on 08-18-2024 Bilirubin.indirect [Mass/Vol] Serum or plasma non-glucuronidated bilirubin measurement (mass/volume) [facility] Sodium [Moles/volume] in Ser um or PlasmaOrdered By: Lynnette Chapman on 08-18-2024 Sodium [Moles/Vol] Sodium [Moles/volume ] in Serum or Plasma 136-145 [facility] Troponin I High Sensitivityo n 08-18-2024 Troponin I High Sensitivity 4.7 pg/mL Normal 0.0-15.0 [facility] Comment on above: Result Comment: PERF ORMED BY: [facility] [address] [place] [address] PATHOLOGIST MANAGER COMMUNICATION JANA OLMEDO M.D. Performed By: #### H S TROP ####[place] [id number] [facility] Troponin I High Sensitivity 5.1 pg/mL Normal 0.0-15.0 [facility] Comment on above: Result Comment: PERF ORMED BY: [facility] [address] [place] [address] PATHOLOGIST MANAGER COMMUNICATION JANA OLMEDO M.D. Performed By: #### H S TROP, LIPASE, PT, BMP, HEPATIC, CK, CBC, BNP ####[place] [id number] [facility] Troponin I.cardiac [Mass/vol ume] in Serum or Plasma by Detection limit <= 0.01 ng/Ordered By: Lynnette Chapman on 08-18-2024 Troponin I.cardiac DL <= 0.01 ng/mL [Mass/Vol] Troponin I.cardiac [Mass/volume] in Serum or Plasma by Detection limit <= 0.01 ng/ 0.0-15.0 [facility] Urea nitrogen [Mass/volume] in Serum or PlasmaOrdered By: Lynnette Chapman on 08-18-2024 Urea nitrogen [Mass/Vol] Urea nitrogen [Mass/volume] in Serum or Plasma 7-25 [facility] WBC Auto (Bld) [#/Vol]Ordere d By: Lynnette Chapman on 08-18-2024 WBC (Bld) [#/Vol] Leukocytes [#/volume ] in Blood by Automated count 3.8-11.6 [facility] XR chest 2V*on 08-18-2024 XR chest 2V* [facility] [address] [place] [address] XRay Report Signed Patient: Jose Alberto Saleem MR#: [id number] : 1965 Acct:[id number] Age/Sex: 59 / F ADM Date: 08/18/24 Loc: Room: [address] [place] [address] Type: ADM INOo Attending Dr: Donis Arroyo [...] Thelma Wick M.D.08/19/2024 12:10 AM Dictation Location: [place] [address] Transcribed By: [facility] 08/19/24 001 Dictated By: Thelma Wick MD 08/18/242210 Signed By: 08/19/24 001 Normal [facility] Reminderson 08-05-2024 Reminders Reminders From: Magdalena Longoria To: EU - Administrative; Sent: 08/05/2024 13:08:24 EST Show up: 03/01/2025 13:08:00 EDT Subject: 1 yr reminder Due Date/Time: 08/01/2025 13:08:00 EDT Reminder/Recall Patient needs scheduled with [facility] for a 1 yr f/u with [facility] Normal [facility] Urology Office/Clinic Noteon 08-05-2024 Urology Office/Clinic [...] Myrbetriq from 25mg to 50mg qd Ordered: 46748 Measure Post Void residual urine and/or bladder capacity by US- non-imaging E&M of Est. Patient Moderate 30-39 Min 02639 Urnls Dip Stick Auto w/o Microscopy POC 73530 2. Urethral pain (R39.89: Other symptoms and [...] day(s), # 90 tab(s), Refills(s) 3, Pharmacy: [facility] [id number], 160, cm, 08/05/24 11:29:00 EST, Height/Length Dosing, 74.2, kg, 08/05/24 11:29:00 EST, Weight Dosing tamsulosin, 0.4 mg = 1 cap(s), Oral, Daily, # 90 cap(s), Refills(s) 3, Pharmacy: Pharmacy, 160, cm, 08/05/24 11:29:00 EST, Height/Length Dosing, 74.2, kg, 08/05/24 11:29:00 EST, Weight Dosing Follow-up With When Contact Information JENNIFER MARTINO PA-C, URL Within 1 year Additional Instructions: Patient Education Kidney Stones, [id number] Problem List/Past Medical History Ongoing Anticoagulated Feeling (more content not included)... Normal [facility] Comment on above: Result Comment: Elec [...] wk f/u. Appointment due by 06/19/2024 in [place] with [facility] SCHEDULED JUL 03, 2024 Normal [facility] Urology Office/Clinic Noteon 04-10-2024 Urology Office/Clinic [...] E&M of Est. Patient High 40-54 Min 23053 Urnls Dip Stick Auto w/o Microscopy POC 35938 2. OAB (overactive bladder) (N32.81: Overactive bladder) [...] E&M of Est. Patient High 40-54 Min 18890 3. Urethral pain (R39.89: Other symptoms and [...] E&M of Est. Patient High 40-54 Min 40454 Orders: estradiol topical, See Instructions, 42.5 gm, Refill(s) 6, apply a pea-sized amount vaginally and around the urethra nightly x 3 weeks, then 3x per week thereafter, [id number], 160, cm, 04/10/24 15:13:00 EDT, Height/Length Dosing, 74, kg, 04/10/24 15:13... mirabegron, 25 mg = 1 tab(s), Oral, Daily, do not fill both mirabegron AND vibegron. only fill whichever has lower co-pay., X 30 day(s), # 30 tab(s), Refills(s) 11, Pharmacy: [facility] #[id number], 160, cm, 04/10/24 15:13:00 EDT, Height/Length Dosing, 74, k... vibegron, 75 mg = 1 tab(s), Oral, Daily, X 30 day(s), # 30 tab(s), Refills(s) 11, Pharmacy: [facility] #[id number], 160, cm, 04/10/24 15:13:00 EDT, Height/Length Dosing, 74, kg, 04/10/24 15:13:00 EDT, Weight Dosing Total time spent reviewing previous notes/results/external documents, preparing the chart, conducting the encounter with the patient and family, ordering tests/medications, and documenting the encounter was 40 minutes. Follow-up With When Contact Information JENNIFER MARTINO PA-C, URL Within 3 months [address] [place] [address] Additional Instructions: Patient Education Kidney Stones, [place]-pf-Oscc Problem List/Past Medical History Ongoing Anticoagulated Feeling of incomplete b (more content not included)... Normal [facility] Comment on above: Result Comment: Elec tronically Signed By: JENNIFER MARTINO PA-C\.br\Date and Time Signed: 04/10/24 16:09 EDT Glucose Glucometer (BldC) [M ass/Vol]on 03-06-2024 Glucose [Mass/Vol] 79 mg/dL Normal 65-[facility]24 [facility] Scheduled EGD/EUS 03/06/24 @1130, PTH, Dr. Cesar, PAT ph: 02/29/24 @1000, #[id number], Clinic appt 02/27/24 w/ Sherita. Normal [facility] [id number] 2023 ALPHA-1 ANTITRYPSIN 145 mg/dL Normal 90-200 [facility] Comment on above: Result Comment: To c onvert to umol/L, multiply mg/dL by 0.185 Performed By: [facility] [address] [place] [address] Environmental Sampling Technician: Sarwat Gorman MD, PhD CLIA Number: [id number] Performed By: #### L [id number] #### [facility] ([facility]ER) [address] [place] [address] ANAon 02-27-2024 CHAY TITER <1:40 Normal <=1:40 [facility] Comment on above: Result Comment: Test performed using BRIJESH IFA CHAY Hep-2 Test, a pre-standardized assay designed for the qualitative and semi-quantitative detection of antinuclear antibodies. Performed By: #### L [id number] #### [facility] ([facility]) [address] [place] [address] ANTI-SMOOTH MUSCLE ANTIBODY TITERon 02-27-2024 SMOOTH MUSCLE AB, IGG TITER <1:20 Normal <1:20 [facility] Comment on above: Result Comment: INTE RPRETIVE INFORMATION: Smooth Muscle Ab, IgG Titer Less than 1:20 ........ Negative - No antibody detected. 1:20 - 1:80 .......... Weak Positive - Suggest repeat in two to three weeks with fresh specimen. 1:160 or greater ...... Positive - Suggestive of autoimmune hepatitis or chronic active hepatitis. Performed By: [facility] [address] [id number] Environmental Sampling Technician: Sarwat Gorman MD, PhD CLIA Number: [id number] Performed By: #### L [id number] #### [facility] ([facility]) [address] [place] [address] CBC WITH AUTO DIFFERENTIALon 02-27-2024 Basophils (Bld) [#/Vol] 0.01 10*3/uL Normal 0.00-0.20 [facility] Comment on above: Performed By: #### L [id number] #### [facility] ([facility]) [address] [place] [address] Basophils/100 WBC (Bld) 0.2 % Normal 0.0-1.0 [facility] Comment on above: Performed By: #### L [id number] #### [facility] ([facility]) [address] [facility] [address] Eosinophils (Bld) [#/Vol] 0.17 10*3/uL Normal 0.00-0.50 [facility] Comment on above: Performed By: #### L [id number] #### [facility] ([facility]) [address] [place] [address] Eosinophils/100 WBC (Bld) 3.2 % Normal 0.0-6.0 [facility] Comment on above: Performed By: #### L [id number] #### [facility] ([facility]) [address] [place] [address] Erythrocyte distribution width (RBC) [Ratio] 12.6 % Normal 11.5-15.0 [facility] Comment on above: Performed By: #### L [id number] #### [facility] ([facility]) [address] [place] [address] ERYTHROCYTE MEAN CORPUSCULAR HEMOGLOBIN CONCENTRATION (G/DL) BY AUTOMATED 33.6 g/dL Normal 32.0-35.0 [facility] Comment on above: Performed By: #### L [id number] #### [facility] ([facility]) [address] [place] [address] Hematocrit (Bld) [Volume fraction] 44.0 % Normal 36.0-48.0 [facility] Comment on above: Performed By: #### L [id number] #### [facility] ([facility]) [address] [place] [address] Hemoglobin (Bld) [Mass/Vol] 14.8 g/dL Normal 12.0-15.0 [facility] Comment on above: Performed By: #### L [id number] #### [facility] ([facility]) [address] [place] [address] Immature granulocytes (Bld) [#/Vol] 0.01 10*3/uL Normal 0.00-0.20 [facility] Comment on above: Performed By: #### L [id number] #### [facility] ([facility]) [address] [place] [address] Immature granulocytes/100 WBC (Bld) 0.2 % Normal 0.0-1.0 [facility] Comment on above: Performed By: #### L [id number] #### [facility] ([facility]) [address] [place] [address] Lymphocytes (Bld) [#/Vol] 1.19 10*3/uL Low 1.20-4.00 [facility] Comment on above: Performed By: #### L [id number] #### [facility] ([facility]) [address] [place] [address] Lymphocytes/100 WBC (Bld) 22.3 % Normal 20.0-45.0 [facility] Comment on above: Performed By: #### L [id number] #### [facility] ([facility]) [address] [place] [address] MCH (RBC) [Entitic mass] 30.2 pg Normal 27.0-33.0 [facility] Comment on above: Performed By: #### L [id number] #### [facility] ([facility]) [address] [place] [address] MCV (RBC) [Entitic vol] 89.8 fL Normal 82.0-98.0 [facility] Comment on above: Performed By: #### L [id number] #### [facility] ([facility]) [address] [place] [address] Monocytes (Bld) [#/Vol] 0.53 10*3/uL Normal 0.10-1.00 [facility] Comment on above: Performed By: #### L [id number] #### [facility] ([facility]) [address] [place] [address] Monocytes/100 WBC (Bld) 9.9 % Normal 5.0-12.0 [facility] Comment on above: Performed By: #### L [id number] #### [facility] ([facility]) [address] [place] [address] Neutrophils (Bld) [#/Vol] 3.42 10*3/uL Normal 1.60-7.60 [facility] Comment on above: Performed By: #### L [id number] #### [facility] ([facility]) [address] [place] [address] Neutrophils/100 WBC (Bld) 64.2 % Normal 40.0-72.0 [facility] Comment on above: Performed By: #### L [id number] #### [facility] ([facility]) [address] [place] [address] NRBC (PER 100 WBCS) BY AUTOMATED COUNT 0.0 % Normal 0 [facility] Comment on above: Performed By: #### L [id number] #### [facility] ([facility]) [address] [place] [address] PLATELETS (10*3/UL) IN BLOOD AUTOMATED COUNT 198 10*3/uL Normal 150-400 [facility] Comment on above: Performed By: #### L [id number] #### [facility] ([facility]) [address] [place] [address] RBC (Bld) [#/Vol] 4.90 10*6/uL Normal 3.80-5.00 [facility] Comment on above: Performed By: #### L [id number] #### [facility] ([facility]) [address] [place] [address] WBC (Bld) [#/Vol] 5.33 10*3/uL Normal 4.00-10.60 [facility] Comment on above: Performed By: #### L [id number] #### [facility] ([facility]) [address] [place] [address] COMPREHENSIVE METABOLIC PANE Curtis 02-27-2024 Albumin [Mass/Vol] 4.4 g/dL Normal 3.5-5.7 [facility] Comment on above: Performed By: #### L [id number] #### [facility] ([facility]) [address] [place] [address] ALP [Catalytic activity/Vol] 84 U/L Normal 34-104 [facility] Comment on above: Performed By: #### L [id number] #### [facility] ([facility]) [address] [place] [address] ALT [Catalytic activity/Vol] 43 U/L Normal 7-52 [facility] Comment on above: Performed By: #### L [id number] #### [facility] ([facility]) [address] [place] [address] Anion gap [Moles/Vol] 11 mmol/L Normal 7-[address] [facility] Comment on above: Performed By: #### L [id number] #### [facility] ([facility]) [address] [place] [address] AST [Catalytic activity/Vol] 33 U/L Normal 13-39 [facility] Comment on above: Performed By: #### L [id number] #### [facility] ([facility]) [address] [place] [address] Bilirubin [Mass/Vol] 0.4 mg/dL Normal 0.3-1.0 [facility] Comment on above: Performed By: #### L [id number] #### [facility] ([facility]) [address] [place] [address] Calcium [Mass/Vol] 9.9 mg/dL Normal 8.6-10.3 [facility] Comment on above: Performed By: #### L [id number] #### [facility] ([facility]) [address] [place] [address] Chloride [Moles/Vol] 102 mmol/L Normal 98-107 [facility] Comment on above: Performed By: #### L [id number] #### [facility] ([facility]) [address] [place] [address] CO2 [Moles/Vol] 29 mmol/L Normal 21-31 [facility] Comment on above: Performed By: #### L [id number] #### [facility] ([facility]) [address] [place] [address] Creatinine [Mass/Vol] 0.62 mg/dL Normal 0.60-1.[address] [facility] Comment on above: Performed By: #### L [id number] #### [facility] ([facility]) [address] [place] [address] GLOMERULAR FILTRATION RATE ML/MIN/1.73 SQ M.PREDICTED 102.5 mL/min/1.73m*2 Normal >60.0 [facility] Comment on above: Result Comment: The [facility]???s estimated glomerular filtration rate (eGFR) will no [...] individuals. Performed By: #### L [id number] #### [facility] ([facility]) [address] [place] [address] Glucose [Mass/Vol] 90 mg/dL Normal 70-100 [facility] Comment on above: Performed By: #### L [id number] #### [facility] ([facility]) [address] [place] [address] Potassium [Moles/Vol] 4.2 mmol/L Normal 3.5-5.1 [facility] Comment on above: Performed By: #### L [id number] #### [facility] ([facility]) [address] [place] [address] Protein [Mass/Vol] 6.9 g/dL Normal 6.0-8.3 [facility] Comment on above: Performed By: #### L [id number] #### [facility] ([facility]) [address] [place] [address] Sodium [Moles/Vol] 138 mmol/L Normal 136-145 [facility] Comment on above: Performed By: #### L [id number] #### [facility] ([facility]) [address] [place] [address] Urea nitrogen [Mass/Vol] 27 mg/dL High 7-25 [facility] Comment on above: Performed By: #### L [id number] #### [facility] ([facility]) [address] [place] [address] UREA NITROGEN/CREATININE (MASS RATIO) IN SER/PLAS 43.5 Normal [facility] Comment on above: Performed By: #### L [id number] #### [facility] ([facility]) [address] [place] [address] COPPER, SERUMon 02-27-2024 COPPER 125.0 ug/dL Normal 80.0-155.0 [facility] Comment on above: Result Comment: INTE RPRETIVE [...] developed and its performance characteristics determined by [facility]. It has not been cleared or approved by the US Food and Drug Administration. This test was performed in a CLIA certified laboratory and is intended for clinical purposes. Performed By: [facility] [address] [place] [address] Environmental Sampling Technician: Sarwat Gorman MD, PhD CLIA Number: [id number] Performed By: #### L [id number] #### [facility] ([facility]) [address] [place] [address] FERRITINon 02-27-2024 FERRITIN (NG/ML) IN SER/PLAS 32.0 ng/mL Normal 11.0-307.0 [facility] Comment on above: Performed By: #### L [id number] #### [facility] ([facility]) [address] [place] [address] FOLATEon 02-27-2024 FOLATE (NG/ML) IN SER/PLAS 39.0 ng/mL Normal 6.6-1000 [facility] Comment on above: Performed By: #### L [id number] #### [facility] ([facility]) [address] [place] [address] HEMOGLOBIN A1Con 02-27-2024 Glucose [Mass/Vol] 100 mg/dL Normal [facility] Comment on above: Performed By: #### L [id number] #### [facility] ([facility]) [address] [place] [address] HbA1c (Bld) [Mass fraction] 5.1 % Normal 4.0-6.0 [facility] Comment on above: Performed By: #### L [id number] #### [facility] ([facility]) [address] [place] [address] HEPATITIS PANEL, ACUTEon HEPATITIS A VIRUS IGM AB PRESENCE IN SER/PLAS Non-Reactive Normal Nonreactive [facility] Comment on above: Performed By: #### L [id number] #### [facility] ([facility]) [address] [place] [address] HEPATITIS B VIRUS CORE AB (PRESENCE) IN SER/PLAS BY IMM Non-Reactive Normal Nonreactive [facility] Comment on above: Performed By: #### L [id number] #### [facility] ([facility]) [address] [place] [address] HEPATITIS B VIRUS SURFACE AG PRESENCE IN SERUM Non-Reactive Normal Nonreactive [facility] Comment on above: Performed By: #### L [id number] #### [facility] ([facility]) [address] [place] [address] HEPATITIS C VIRUS AB PRESENCE IN SERUM Non-Reactive Normal Nonreactive [facility] Comment on above: Performed By: #### L [id number] #### [facility] ([facility]) [address] [place] [address] IGAon 02-27-2024 Magnesium [Mass/Vol] 108 mg/dL Normal 60-413 [facility] Comment on above: Performed By: #### L [id number] #### [facility] ([facility]) [address] [place] [address] IGG 1, 2, 3, AND 4on 024 IgG subclass 1 (S) [Mass/Vol] 293 mg/dL Normal 240-1118 [facility] Comment on above: Result Comment: REFE RENCE INTERVAL: Immunoglobulin G Subclass 1 The total IgG (mg/dL) can be derived from the sum of the subclass IgG1, IgG2, IgG3, and IgG4 values. However, a confirmatory and more precise total IgG is available by the turbidimetric method of quantitation for total IgG. Refer to test Immunoglobulin G, Serum ([id number]). Access complete set of age- and/or gender-specific reference intervals for this test in the [facility] Test Directory (lifecake). Performed By: #### L [id number] #### [facility] ([facility]) [address] [place] [address] IgG subclass 2 (S) [Mass/Vol] 160 mg/dL Normal 124-549 [facility] Comment on above: Result Comment: REFE RENCE INTERVAL: Immunoglobulin G Subclass 2 Access complete set of age- and/or gender-specific reference intervals for this test in the [facility] Test Directory (lifecake). Performed By: #### L [id number] #### [facility] ([facility]) [address] [place] [address] IgG subclass 3 (S) [Mass/Vol] 32 mg/dL Normal 21-134 [facility] Comment on above: Result Comment: REFE RENCE INTERVAL: Immunoglobulin G Subclass 3 Access complete set of age- and/or gender-specific reference intervals for this test in the [facility] (lifecake). Performed By: #### L [id number] #### [facility] ([facility]) [address] [place] [address] IgG subclass 4 (S) [Mass/Vol] 21 mg/dL Normal 1-123 [facility] Comment on above: Result Comment: REFE RENCE INTERVAL: Immunoglobulin G Subclass 4 Access complete set of age- and/or gender-specific reference intervals for this test in the [facility] (lifecake). Performed By: [facility] [address] [place] [address] Environmental Sampling Technician: Sarwat Gorman MD, PhD CLIA Number: [id number] Performed By: #### L [id number] #### [facility] ([facility]) [address] [place] [address] IRON AND TIBCon 02-27-2024 IRON (UG/DL) IN SER/PLAS 56 ug/dL Normal 50-212 [facility] Comment on above: Performed By: #### L [id number] #### [facility] ([facility]) [address] [place] [address] IRON BINDING CAPACITY (UG/DL) IN SER/PLAS 364 ug/dL Normal 250-450 [facility] Comment on above: Performed By: #### L [id number] #### [facility] ([facility]) [address] [place] [address] IRON BINDING CAPACITY.UNSATURATED (UG/DL) IN SER/PLAS 308.0 ug/dL Normal 155.0-355.0 [facility] Comment on above: Performed By: #### L [id number] #### [facility] ([facility]) [address] [facility] [place] [address] IRON SATURATION (%) IN SER/PLAS 15 % Low 20-50 [facility] Comment on above: Performed By: #### L [id number] #### [facility] ([facility]) [address] [place] [address] LIPID PANELon 02-27-2024 CHOL/HDL 2.9 mg/dL Normal [facility] Comment on above: Performed By: #### L [id number] #### [facility] ([facility]) [address] [place] [address] Cholesterol [Mass/Vol] 111 mg/dL Low 120-200 [facility] Comment on above: Performed By: #### L [id number] #### [facility] ([facility]) [address] [place] [address] Magnesium [Mass/Vol] 144 mg/dL Normal 40-149 [facility] Comment on above: Result Comment: TRIG LYCERIDE REFERENCE RANGE: 20 YEARS AND OLDER CARDIOVASCULAR RISK LESS THAN 150 mg/dL LOW RISK 150 TO 199 mg/dL BORDERLINE RISK 200 mg/dL AND GREATER HIGH RISK Performed By: #### L [id number] #### [facility] ([facility]) [address] [place] [address] Magnesium [Mass/Vol] 44 mg/dL Normal 0-160 [facility] Comment on above: Performed By: #### L [id number] #### [facility] ([facility]) [address] [place] [address] Magnesium [Mass/Vol] 38 mg/dL Normal 23-92 [facility] Comment on above: Performed By: #### L [id number] #### [facility] ([facility]) [address] [place] [address] NON HDL CHOL. (LDL+VLDL) 73 Normal [facility] Comment on above: Performed By: #### L [id number] #### [facility] ([facility]) [address] [place] [address] TOTAL VLDL-C 29 mg/dL Normal 0-40 [facility] Comment on above: Performed By: #### L [id number] #### [facility] ([facility]) [address] [facility] [place] [address] LIVER FIBROSIS CHRONIC VIRAL HEPATITISon 02-27-2024 [id number] , FIBROMETER 328 mg/dL High 131-293 [facility] Comment on above: Performed By: #### L [id number] #### [facility] ([facility]) [address] [place] [address] ALT [Catalytic activity/Vol] 57 U/L High 5-40 [facility] Comment on above: Performed By: #### L [id number] #### [facility] ([facility]) [address] [place] [address] Amylase [Catalytic activity/Vol] 18 U/L Normal 7-33 [facility] Comment on above: Performed By: #### L [id number] #### [facility] ([facility]) [address] [place] [address] AST [Catalytic activity/Vol] 41 U/L High 9-40 [facility] Comment on above: Performed By: #### L [id number] #### [facility] ([facility]) [address] [place] [address] CIRRHOMETER PATIENT SCORE 0.08 Normal [facility] Comment on above: Performed By: #### L [id number] #### [facility] ([facility]) [address] [place] [address] EER FIBROMETER REPORT See Note Normal [facility] Comment on above: Result Comment: Auth orized individuals can access the [facility] Enhanced Report using the following link: [email or web address] Performed By: #### L [id number] #### [facility] ([facility]) [address] [place] [address] FIBROMETER INTERPRETATION See Report Normal [facility] Comment on above: Result Comment: [17] [13] INTERPRETIVE INFORMATION: Fibrometer Interpretation Calculations for the final report are based on accurate data for age, gender, and platelet count. If any of this information needs to be corrected, please contact [facility] to request a recalculation. Client [...] developed and its performance characteristics determined by [facility]. It has not been cleared or approved by the [place] Food and Drug Administration. This test was performed in a CLIA certified laboratory and is intended for clinical purposes. Performed By: [facility] [address] [place] [address] Environmental Sampling Technician: Sarwat Gorman MD, PhD CLIA Number: [id number] Performed By: #### L [id number] #### [facility] ([facility] [address] [place] [address] FIBROMETER PATIENT SCORE 0.62 Normal [facility] Comment on above: Performed By: #### L [id number] #### [facility] [address] [place] [address] FIBROMETER PLATELET COUNT 198 k/uL Normal [facility] Comment on above: Performed By: #### L [id number] #### [facility] ([facility]) [address] [place] [address] FIBROMETER PROTHROMBIN INDEX 81 % Low 90-120 [facility] Comment on above: Performed By: #### L [id number] #### [facility] ([facility]) [address] [place] [address] FIBROSIS METAVIR CLASSIFICATION F2[F1-F3] Normal [facility] Comment on above: Result Comment: INTE RPRETIVE [...] possible Performed By: #### L [id number] #### [facility] ([facility]) [address] [place] [address] INFLAMETER METAVIR CLASSIFICATION A1/A2 [facility] Comment on above: Result Comment: INTE RPRETIVE INFORMATION: InflaMeter Metavir Classification InflaMeter (activity score) comments A0/A1 Equal probability between A0 and A1 A1/A2 Equal probability between A1 and A2 A2/A3 Equal probability between A2 and A3 Performed By: #### L [id number] #### [facility] ([facility]) [address] [place] [address] INFLAMETER PATIENT SCORE 0.62 Normal [facility] Comment on above: Performed By: #### L [id number] #### [facility] ([facility]) [address] [place] [address] Urea nitrogen [Mass/Vol] 28 mg/dL High 7-20 [facility] Comment on above: Performed By: #### L [id number] #### [facility] ([facility]) [address] [place] [address] Labon 02-27-2024 Lab [id number] Diana Saleem tte 1965 Provider Department Center 02/27/2024 2244-[facility] RESOURCE DRAW Medical Pavi Family History Problem Relation Age of Onset Hyperlipidemia Mother Hyperlipidemia Father Hyperlipidemia Brother Heart attack Brother Family Status - Relation Status Age at Mother Father Brother Brother Normal [facility] MITOCHONDRIAL ANTIBODIES, M2 on 02-27-2024 MITOCHONDRIAL M2 ANTIBODY 7.2 Units Normal 0.0-24.9 [facility] Comment on above: Result Comment: REFE RENCE [...] does not rule out PBC. Performed By: [facility] [address] [place] [address] Environmental Sampling Technician: Sarwat Gorman MD, PhD CLIA Number: [id number] Performed By: #### L [id number] #### [facility] ([facility]) [address] [place] [address] Office Visiton 02-27-2024 Follow-up visit [id number] Diana Saleem tte 1965 Provider Department Center 02/27/2024 [facility]EL[facility] Medical Pavi Family History Problem Relation Age of Onset Hyperlipidemia Mother Hyperlipidemia Father Hyperlipidemia Brother Heart attack Brother Family Status - Relation Status Age at Mother Father Brother Brother Level of Service:12706 [place] OFFICE/OUTPATIENT NEW MODERATE MDM 45 MINUTES (GC) Reason for Visit and Comments: New Patient [632] Pancreatitis [306804] Normal [facility] PROTIME-INRon 02-27-2024 INR IN PPP BY COAGULATION ASSAY 1.08 Normal 0.90-1.10 [facility] Comment on above: Result Comment: [facility] P RECOMMENDED INR FOR WARFARIN THERAPY CONDITION [...] 1995;108:231S-246S. Performed By: #### L [id number] #### [facility] ([facility]) [address] [place] [address] PROTHROMBIN TIME (PT) IN PPP BY COAGULATION ASSAY 14.0 Seconds Normal 12.3-14.8 [facility] Comment on above: Performed By: #### L [id number] #### [facility] ([facility]) [address] [place] [address] TISSUE TRANSGLUTAMINASE, IGA on 02-27-2024 TISSUE TRANSGLUTAMINASE, IGA <1.02 Normal 0.00-4.99 [facility] Comment on above: Result Comment: INTE RPRETIVE [...] indicate a response to therapy. Performed By: [facility] [address] [place] [address] Environmental Sampling Technician: Sarwat Gorman MD, PhD CLIA Number: [id number] Performed By: #### L [id number] #### [facility] ([facility]) [address] [place] [address] TSH3 REFLEX TO FT4on 024 THYROTROPIN (MIU/L) IN SER/PLAS BY DETECTION LIMIT <= 0.05 MIU/L 2.02 mIU/L Normal 0.34-5.60 [facility] Comment on above: Performed By: #### L [id number] #### [facility] ([facility]) [address] [place] [address] VITAMIN B12on 02-27-2024 Cobalamin (Vitamin B12) [Mass/Vol] 1862 pg/mL High 180-914 [facility] Comment on above: Result Comment: REFE RENCE RANGES: 180-914 pg/mL Normal 145-179 pg/mL Indeterminate <145 pg/mL Deficient Performed By: #### L [id number] #### [facility] ([facility]) [address] [place] [address] VITAMIN D 25 HYDROXYon 02-26 CALCIDIOL (25 [place] VITAMIN D3) (NG/ML) IN SER/PLAS 62.1 ng/mL Normal 30.0-80.0 [facility] Comment on above: Result Comment: >80. 0 Toxicity possible Performed By: #### L [id number] #### [facility] ([facility]) [address] [place] [address] Orders Onlyon 02-12-2024 Orders Only [id number] Diana Saleem ttrene 1965 F Date Provider Department Center 02/12/2024 [id number], HISTORICAL MP GI Medical Pavi No family history on file Normal [facility] Lab Reportson 01-23-2024 Lab Reports [id number]#1.00TIF F Normal [facility] Lab Reports [id number] [id number]#1.00TIF F Normal [facility] Lab Reportson 01-22-2024 Lab Reports [id number]#1.00TIF F Normal [facility] Lab Reports [id number]#1.00TIF F Normal [facility] Lab Reports [id number]#1.00TIF F [facility] RAD - MISCon 01-22-2024 RAD - MISC [id number]#1.00TIF F Normal [facility] Surgical Pathology Reporton 06-18-2023 Surgical Pathology Report (NOTE) Path Number: [id number] -- Diagnosis -- ENDOMETRIAL CURETTINGS: -BENIGN ENDOMETRIAL [...] Microscopic Description Microscopic examination performed. Processing Lab: [facility] [address] [place] [address] [facility] [address] [place] [address] SURGICAL PATHOLOGY CONSULTATION Patient Name: JOSE ALBERTO SALEEM [facility] Rec: [id number] [facility] ANATOMIC PATHOLOG[facility] [address] [place], [place] [address] Normal [facility] US NON OB TRANSVAGINALon US [...] Gaby Tello DO 06/05/23 Final result Normal [facility] Ceruloplasminon 12-12-2022 Ceruloplasmin 30.6 mg/dL 19.0-39.0 mg/dL [facility] Other Ferritinon 12-12-2022 Ferritin [Mass/Vol] 43.0300993 ng/mL Normal 11.0 -306.8 ng/mL [facility] Hepatitis A Antibody Totalon 12-12-2022 Hepatitis A Antibody Total Negative . [facility] Other Hepatitis B Surface Antibody on 12-12-2022 Hepatitis B Surface Antibody Non-Reactive Non Reactive [facility] Immunoglobulin Javi 3 Immunoglobulin G 823 mg/dL 586-1602 mg/dL [facility] Other Liver-Kidney Microsomal Abon 12-12-2022 Liver-Kidney Microsomal Ab 1.1 0.0-20.0 [facility] Other Mitochondrial (M2) Antibodyo n 12-12-2022 Mitochondrial (M2) Antibody <20.0 0.0-20.0 [facility] Other Smooth Muscle Antibodyon Smooth Muscle Antibody 5 0-19 [facility] Other MR MRCPon 11-10-2022 MR MRCP [facility] Other MR MRCP [facility] Other MR MRCP [address] [facility] [place] [place] [address] [facility] Other MR MRCP MRI Report [facility] Other MR MRCP Signed [facility] Other MR MRCP Patient: Danika Saleem MR#: [id number] [facility] Other MR MRCP 5[address] [facility] Other MR MRCP : 1965 Acct:[id number] [facility] Other MR MRCP Age/Sex: 57 / F ADM Date: 11/10/22 [facility] Other MRCP Loc: MR Room: Type: [facility] Other MR MRCP Attending Dr: Evert salinas MD [facility] Other MR MRCP Copies to: Evert daigle MD [facility] Other MRCP Ordering Provider: Marleny Bruno MD [facility] Other MR MRCP Date of Service: 11/10/22 [facility] Other MR MRCP MR/MR MRCP: Abdominal pain;Common bile duct dilatation;Elevated liver en [facility] Other MR MRCP MRCP [facility] Other MR MRCP CLINICAL DATA: Huson hayley lipase. Abnormal outside abdominal CT [facility] Other MR MRCP COMPARISON: CT abdom en 10/16/2022 [facility] Other MR MRCP Multiecho imaging of the abdomen was performed along with radial imaging of the biliary tree. [facility] Other MR MRCP The gallbladder surgically absent. There is no significant intrahepatic biliary dilatation. The [facility] Other MR MRCP common duct is sligh tly prominent measuring up to 6 mm. It tapers toward the ampulla. No in [facility] Other MR [facility]CP traluminal filling defects are identified to suggest choledocholithiasis. The pancreatic duct is [facility] Other MR MRCP also borderline prominent measuring 2 - 3 mm. No intrahepatic masses are identified. No pancreatic [facility] Other MR MRCP abnormalities are no hayley. The spleen and adrenal glands are within normal limits. There is no [facility] Other MR MRCP hydronephrosis. Ther e are right renal cysts. There is no aortic aneurysm. No adenopathy or [facility] Other MR MRCP ascites is seen. The re is no dilated bowel within the [id number]. [facility] Other MR MRCP M R/MR MRCP [facility] Other MR MRCP IMPRESSION: [facility] Other MR MRCP SLIGHTLY PROMINENT COMMON DUCT, WITHOUT CHOLEDOCHOLITHIASIS. THIS MAY RELATE TO PREVIOUS [facility] Other MR MRCP CHOLECYSTECTOMY. [facility] Other MR MRCP RIGHT RENAL CYSTS. [facility] Other MR MRCP NO OTHER SIGNIFICANT MRI FINDINGS. [facility] Other MR MRCP Impression dictated by: Thelma Wick M.D.11/10/2022 7:00 PM [facility] Other MR MRCP Dictation Location: [place] [address] [facility] Other MR MRCP Transcribed By: PWS 11/10/221899 [facility] Other MR [facility]CP Dictated By: Thelma Wick MD 11/10/221849 [facility] Other MR MRCP Signed By: [facility] Other MR MRCP 11/10/221899 [facility] Other Albumin [Mass/volume] in Ser um or PlasmaOrdered By: Evert Bruno on 11-01-2022 Albumin [Mass/Vol] 4.0 g/dL 3.2-5.5 [facility] Direct bilirubin measurement Ordered By: Evert Bruno on 11-01-2022 Bilirubin.direct [Mass/Vol] 0.1 mg/dL 0.0-0.4 [facility] Globulin Calc (S) [Mass/Vol] Ordered By: Evert Bruno on 11-01-2022 Globulin (S) [Mass/Vol] 2.5 g/dL [facility] Hepatic Panelon 11-01-2022 Albumin [Mass/Vol] 4.603313 g/dL Normal 3.2-5.5 g/dL [facility] [employer] Other ALT [Catalytic activity/Vol] 94 U/L High 10-60 U/L [facility] Other Bilirubin [Mass/Vol] 0.0164129 mg/dL Normal 0.3- 1.2 mg/dL [facility] Other Bilirubin.indirect [Mass/Vol] 0.9631910 mg/dL Normal 0.0-0.4 mg/dL [facility] Other Protein [Mass/Vol] 6.446019 g/dL Normal 6.1-7.9 g/dL [facility] [employer] Other Hepatic Panel 0.5 mg/dL [facility] Other Hepatic Panel 2.5 g/dL [facility] Other Protein [Mass/volume] in Ser um or PlasmaOrdered By: Imsara Bruno on 11-01-2022 Protein [Mass/Vol] 6.5 g/dL 6.1-7.9 [facility] Serum or plasma alanine li otransferase measurement without P-5'-P (enzymatic activiOrdered By: Imad Asaad on 11-01-2022 ALT No additional P-5'-P [Catalytic activity/Vol] 94 U/L 10-60 [facility] Serum or plasma albumin/glob ulin mass ratioOrdered By: [employer] Asaad on 11-01-2022 Albumin/Globulin [Mass ratio] 1.6 {ratio} [facility] Serum or plasma alkaline monster sphatase measurement (enzymatic activity/volume)Ordered By: [employer] Asaad on 11-01-2022 ALP [Catalytic activity/Vol] 93 U/L 32-92 [facility] Serum or plasma aspartate am inotransferase measurement (enzymatic activity/volume)Ordered By: [employer] Asaad on 11-01-2022 AST [Catalytic activity/Vol] 66 U/L 10-42 [facility] Serum or plasma non-glucuron idated bilirubin measurement (mass/volume)Ordered By: [employer] on 11-01-2022 Bilirubin.indirect [Mass/Vol] 0.5 mg/dL [facility] Serum or plasma total biliru bin measurement (mass/volume)Ordered By: [employer] Asaad on 11-01-2022 Bilirubin [Mass/Vol] 0.6 mg/dL 0.3-1.[address] [facility] [address] ABDOMEN WO/W CONon 2022 CT [...] JAE WILSON Date: 2022-10-17 08:23 Normal [facility] AMMONIAon 10-09-2022 Ammonia (P) [Moles/Vol] 10 umol/L Critically low 11-32 [facility] Comment on above: Performed By: #### A MY #### [facility] [address] [place] [address] Dr. Ayden Cam AMYLASEon 10-09-2022 Amylase [Catalytic activity/Vol] 144 U/L Critically high 25-115 [facility] Comment on above: Performed By: #### L IPA #### [facility] [address] [place] [address] Dr. Ayden Cam CBC AUTO DIFFon 10-09-2022 BASO # 0.0 103/ul Normal 0.0-0.1 [facility] Comment on above: Performed By: #### C BC #### [facility] [address] [place] [address] Dr. Ayden Cam Basophils/100 WBC (Bld) 0.2 % Normal 0.2-2.0 [facility] Comment on above: Performed By: #### C BC #### [facility] [address] [place] [address] Dr. Ayden Cam EO # 0.2 103/ul Normal 0.0-0.7 [facility] Comment on above: Performed By: #### C BC #### [facility] [address] [place] [address] Dr. Ayden Cam Eosinophils/100 WBC (Bld) 3.3 % Normal 0.9-7.0 [facility] Comment on above: Performed By: #### C BC #### [facility] [address] [place] [address] Dr. Ayden Cam Erythrocyte distribution width (RBC) [Ratio] 12.1 % Normal 11.0-15.0 [facility] Comment on above: Performed By: #### C BC #### [facility] [address] [place] [address] Dr. Ayden Cam Hematocrit (Bld) [Volume fraction] 40.0 % Normal 36.0-48.0 [facility] Comment on above: Performed By: #### C BC #### [facility] [address] [place] [address] Dr. Ayden Cam Hemoglobin (Bld) [Mass/Vol] 14.2 g/dL Normal 12.0-16.0 [facility] Comment on above: Performed By: #### C BC #### [facility] [address] [place] [address] Dr. Ayden Cam IG # 0.01 10e3/ul Normal 0.00-0.03 [facility] Comment on above: Performed By: #### C BC #### [facility] [address] [place] [address] Dr. Ayden Cam IG % 0.2 % Normal 0.0-0.5 [facility] Comment on above: Performed By: #### C BC #### [facility] [address] [place] [address] Dr. Ayden Cam LYMPH # 1.5 103/ul Normal 1.2-3.8 [facility] Comment on above: Performed By: #### C BC #### [facility] [address] [place] [address] Dr. Ayden Cam Lymphocytes/100 WBC (Bld) 24.2 % Normal 20.5-60.0 [facility] Comment on above: Performed By: #### C BC #### [facility] [address] [place] [address] Dr. Ayden Cam MANUAL DIFF REQ NO Normal [facility] Comment on above: Performed By: #### C BC #### [facility] [address] [place] [address] Dr. Ayden Cam MCH (RBC) [Entitic mass] 30.0 pg Normal 26.7-34.0 [facility] Comment on above: Performed By: #### C BC #### [facility] [address] [place] [address] Dr. Ayden Cam MCHC (RBC) [Mass/Vol] 35.5 g/dL Critically high 29.9-35.2 [facility] Comment on above: Performed By: #### C BC #### [facility] [address] [place] [address] Dr. Ayden Cam MCV (RBC) [Entitic vol] 84.4 fL Normal 81.0-99.0 [facility] Comment on above: Performed By: #### C BC #### [facility] [address] [place] [address] Dr. Ayden Cam MONO # 0.6 103/ul Normal 0.3-0.8 [facility] Comment on above: Performed By: #### C BC #### [facility] [address] [place] [address] Dr. Ayden Cam Monocytes/100 WBC (Bld) 10.3 % Normal 1.7-12.0 [facility] Comment on above: Performed By: #### C BC #### [facility] [address] [place] [address] Dr. Ayden Cam NEUT # 3.7 103/ul Normal 1.4-6.5 [facility] Comment on above: Performed By: #### C BC #### [facility] [address] [place] [address] Dr. Ayden Cam Neutrophils/100 WBC (Bld) 61.8 % Normal 43.0-75.0 [facility] Comment on above: Performed By: #### C BC #### [facility] [address] [place] [address] [address] Ayden Cam Platelet mean volume (Bld) [Entitic vol] 9.0 fL Critically low 9.5-13.5 [facility] Comment on above: Performed By: #### C BC #### [facility] [address] [place] [address] Dr. Ayden Cam PLT 191 103/ul Normal 150-450 [facility] Comment on above: Performed By: #### C BC #### [facility] [address] [place] [address] Dr. Ayden Cam RBC 4.74 106/ul Normal 4.20-5.40 [facility] Comment on above: Performed By: #### C BC #### [facility] [address] [place] [address] Dr. Ayden Cam WBC 6.0 103/ul Normal 4.0-11.0 [facility] Comment on above: Performed By: #### C BC #### [facility] [address] [place] [address] Dr. Ayden Cam LIPASEon 10-09-2022 Lipase [Catalytic activity/Vol] 168.0 U/L Normal 73.0-393.0 [facility] Comment on above: Performed By: #### L ACT #### [facility] [address] [place] [address] Dr. Ayden Cam PROF 14(COMP METB)on 023 Albumin [Mass/Vol] 3.6 g/dL Normal 3.4-5.0 [facility] Comment on above: Performed By: #### L IPA #### [facility] [address] [place] [address] Dr. Ayden Cam Albumin/Globulin [Mass ratio] 1.1 {ratio} Normal [facility] Comment on above: Performed By: #### L IPA #### [facility] [address] [place] [address] Dr. Ayden Cam ALP [Catalytic activity/Vol] 93 U/L Normal 46-116 [facility] Comment on above: Performed By: #### L IPA #### [facility] [address] [place] [address] [address] Ayden Cam ALT [Catalytic activity/Vol] 52 U/L Normal 14-59 [facility] Comment on above: Performed By: #### L IPA #### [facility] [address] [place] [address] [address] Ayden Cam Anion gap [Moles/Vol] 10.2 mmol/L Normal [facility] Comment on above: Performed By: #### L IPA #### [facility] [address] [place] [address] [address] Ayden Cam AST [Catalytic activity/Vol] 33 U/L Normal 15-37 [facility] Comment on above: Performed By: #### L IPA #### [facility] [address] [place] [address] [address] Ayden Cam Bilirubin [Mass/Vol] 0.3 mg/dL Normal 0.2-1.0 [facility] Comment on above: Performed By: #### L IPA #### [facility] [address] [place] [address] [address] Ayden Cam Calcium [Mass/Vol] 9.4 mg/dL Normal 8.5-10.1 [facility] Comment on above: Performed By: #### L IPA #### [facility] [address] [place] [address] [address] Ayden Cam Chloride [Moles/Vol] 99 mmol/L Normal 98-107 [facility] Comment on above: Performed By: #### L IPA #### [facility] [address] [place] [address] [address] Ayden Cam CO2 [Moles/Vol] 33.7 mmol/L Critically high 21.0-32.0 [facility] Comment on above: Performed By: #### L IPA #### [facility] [address] [place] [address] [address] Ayden Cam Creatinine [Mass/Vol] 0.62 mg/dL Normal 0.55-1.02 [facility] Comment on above: Performed By: #### L IPA #### [facility] [address] [place] [address] [address] Ayden Cam EGFR-AF BRAZILIAN >60 Normal >=60 [facility] Comment on above: Performed By: #### L IPA #### [facility] [address] [place] [address] Dr. Ayden Cam EGFR-NON AF BRAZILIAN >60 Normal >=60 [facility] Comment on above: Performed By: #### L IPA #### [facility] [address] [place] [address] [address] Ayden Cam Globulin (S) [Mass/Vol] 3.4 g/dL Normal [facility] Comment on above: Performed By: #### L IPA #### [facility] [address] [place] [address] Dr. Ayden Cam Glucose [Mass/Vol] 105 mg/dL Normal 74-106 [facility] Comment on above: Performed By: #### L IPA #### [facility] [address] [place] [address] Dr. Ayden Cam Potassium [Moles/Vol] 3.9 mmol/L Normal 3.5-5.1 [facility] Comment on above: Performed By: #### L IPA #### [facility] [address] [place] [address] Dr. Ayden Cam Protein [Mass/Vol] 7.0 g/dL Normal 6.4-8.2 [facility] Comment on above: Performed By: #### L IPA #### [facility] [address] [place] [address] Dr. Ayden Cam Sodium [Moles/Vol] 139 mmol/L Normal 136-145 [facility] Comment on above: Performed By: #### L IPA #### [facility] [address] [place] [address] Dr. Ayden Cam Urea nitrogen [Mass/Vol] 28.0 mg/dL Critically high 7.0-18.0 [facility] Comment on above: Performed By: #### L IPA #### [facility] [address] [place] [address] Dr. Ayden Cam Urea nitrogen/Creatinine [Mass ratio] 45.2 mg/mg Normal [facility] Comment on above: Performed By: #### L IPA #### [facility] [address] [place] [address] Dr. Ayden Cam AMMONIAon 10-06-2022 Ammonia (P) [Moles/Vol] 16 umol/L Normal 11-32 [facility] Comment on above: Performed By: #### A MM #### [facility] [address] [place] [address] Dr. Ayden Cam AMYLASEon 10-06-2022 Amylase [Catalytic activity/Vol] 189 U/L Critically high 25-115 [facility] Comment on above: Performed By: #### L IPA #### [facility] [address] [place] [address] Dr. Ayden Cam CBC AUTO DIFFon 10-06-2022 BASO # 0.0 103/ul Normal 0.0-0.1 [facility] Comment on above: Performed By: #### C BC #### [facility] [address] [place] [address] Dr. Ayden Cam Basophils/100 WBC (Bld) 0.2 % Normal 0.2-2.0 [facility] Comment on above: Performed By: #### C BC #### [facility] [address] [place] [address] Dr. Ayden Cam EO # 0.3 103/ul Normal 0.0-0.7 [facility] Comment on above: Performed By: #### C BC #### [facility] [address] [place] [address] Dr. Ayden Cam Eosinophils/100 WBC (Bld) 5.2 % Normal 0.9-7.0 [facility] Comment on above: Performed By: #### C BC #### [facility] [address] [place] [address] Dr. Ayden Cam Erythrocyte distribution width (RBC) [Ratio] 12.3 % Normal 11.0-15.0 [facility] Comment on above: Performed By: #### C BC #### [facility] [address] [place] [address] Dr. Ayden Cam Hematocrit (Bld) [Volume fraction] 36.9 % Normal 36.0-48.0 [facility] Comment on above: Performed By: #### C BC #### [facility] [address] [place] [address] Dr. Ayden Cam Hemoglobin (Bld) [Mass/Vol] 12.4 g/dL Normal 12.0-16.0 [facility] Comment on above: Performed By: #### C BC #### [facility] [address] [place] [address] Dr. Ayden Cam IG # 0.01 10e3/ul Normal 0.00-0.03 [facility] Comment on above: Performed By: #### C BC #### [facility] [address] [place] [address] Dr. Ayden Cam IG % 0.2 % Normal 0.0-0.5 [facility] Comment on above: Performed By: #### C BC #### [facility] [address] [place] [address] Dr. Ayden Cam LYMPH # 1.8 103/ul Normal 1.2-3.8 [facility] Comment on above: Performed By: #### C BC #### [facility] Laboratory [address] [place] [address] Dr. Ayden Cam Lymphocytes/100 WBC (Bld) 31.3 % Normal 20.5-60.0 [facility] Comment on above: Performed By: #### C BC #### [facility] [address] [place] [address] Dr. Ayden Cam MANUAL DIFF REQ NO Normal [facility] Comment on above: Performed By: #### C BC #### [facility] [address] [place] [address] Dr. Ayden Cam MCH (RBC) [Entitic mass] 30.0 pg Normal 26.7-34.0 [facility] Comment on above: Performed By: #### C BC #### [facility] [address] [place] [address] Dr. Ayden Cam MCHC (RBC) [Mass/Vol] 33.6 g/dL Normal 29.9-35.2 [facility] Comment on above: Performed By: #### C BC #### [facility] [address] [address] [address] Ayden Cam MCV (RBC) [Entitic vol] 89.1 fL Normal 81.0-99.0 [facility] Comment on above: Performed By: #### C BC #### [facility] [address] [address] [address] Ayden Cam MONO # 0.6 103/ul Normal 0.3-0.8 [facility] Comment on above: Performed By: #### C BC #### [facility] [address] [place] [address] Dr. Ayden Cam Monocytes/100 WBC (Bld) 10.1 % Normal 1.7-12.0 [facility] Comment on above: Performed By: #### C BC #### [facility] [address] [place] [address] Dr. Ayden Cam NEUT # 3.1 103/ul Normal 1.4-6.5 [facility] Comment on above: Performed By: #### C BC #### [facility] [address] [place] [address] Dr. Ayden Cam Neutrophils/100 WBC (Bld) 53.0 % Normal 43.0-75.0 [facility] Comment on above: Performed By: #### C BC #### [facility] [address] [address] [address] Ayden Cam Platelet mean volume (Bld) [Entitic vol] 9.4 fL Critically low 9.5-13.5 [facility] Comment on above: Performed By: #### C BC #### [facility] [address] [place] [address] Dr. Ayden Cam PLT 153 103/ul Normal 150-450 [facility] Comment on above: Performed By: #### C BC #### [facility] [address] [place] [address] Dr. Ayden Cam RBC 4.14 106/ul Critically low 4.20-5.40 [facility] Comment on above: Performed By: #### C BC #### [facility] [address] [place] [address] Dr. Ayden Cam WBC 5.8 103/ul Normal 4.0-11.0 [facility] Comment on above: Performed By: #### C BC #### [facility] [address] [place] [address] Dr. Ayden Cam LIPASEon 10-06-2022 Lipase [Catalytic activity/Vol] 166.0 U/L Normal 73.0-393.0 [facility] Comment on above: Performed By: #### L IPA #### [facility] [address] [place] [address] Dr. Ayden Cam LIVER PROFILEon 10-06-2022 Albumin [Mass/Vol] 3.2 g/dL Critically low 3.4-5.0 [facility] Comment on above: Performed By: #### L IPA #### [facility] [address] [place] [address] Dr. Ayden Cam Albumin/Globulin [Mass ratio] 1.3 {ratio} Normal [facility] Comment on above: Performed By: #### L IPA #### [facility] [address] [place] [address] Dr. Ayden Cam ALP [Catalytic activity/Vol] 88 U/L Normal 46-116 [facility] Comment on above: Performed By: #### L IPA #### [facility] [address] [place] [address] Dr. Ayden Cam ALT [Catalytic activity/Vol] 66 U/L Critically high 14-59 [facility] Comment on above: Performed By: #### L IPA #### [facility] [address] [place] [address] Dr. Ayden Cam AST [Catalytic activity/Vol] 39 U/L Critically high 15-37 [facility] Comment on above: Performed By: #### L IPA #### [facility] [address] [place] [address] Dr. Ayden Cam BILI, CONJUGATED 0.1 mg/dL Normal 0.0-0.2 [facility] Comment on above: Performed By: #### L IPA #### [facility] [address] [place] [address] Dr. Ayden Cam Bilirubin [Mass/Vol] 0.4 mg/dL Normal 0.2-1.0 [facility] Comment on above: Performed By: #### L IPA #### [facility] [address] [place] [address] Dr. Ayden Cam Globulin (S) [Mass/Vol] 2.4 g/dL Normal [facility] Comment on above: Performed By: #### L IPA #### [facility] [address] [place] [address] Dr. Ayden Cam Protein [Mass/Vol] 5.6 g/dL Critically low 6.4-8.2 [facility] [place] [facility] Comment on above: Performed By: #### L IPA #### [facility] [address] [place] [address] Dr. Ayden Cam PROF CHEM 8 (BAS METB)on Anion gap [Moles/Vol] 6.8 mmol/L Normal [facility] Comment on above: Performed By: #### L IPA #### [facility] [address] [place] [address] Dr. Ayden Cam Calcium [Mass/Vol] 8.6 mg/dL Normal 8.5-10.1 [facility] Comment on above: Performed By: #### L IPA #### [facility] [address] [place] [address] Dr. Ayden Cam Chloride [Moles/Vol] 102 mmol/L Normal 98-107 [facility] Comment on above: Performed By: #### L IPA #### [facility] [address] [place] [address] Dr. Ayden Cam CO2 [Moles/Vol] 32.6 mmol/L Critically high 21.0-32.0 [facility] Comment on above: Performed By: #### L IPA #### [facility] [address] [place] [address] Dr. Ayden Cam Creatinine [Mass/Vol] 0.61 mg/dL Normal 0.55-1.02 [facility] Comment on above: Performed By: #### L IPA #### [facility] [address] [address] [address] Ayden Cam EGFR-AF BRAZILIAN >60 Normal >=60 [facility] Comment on above: Performed By: #### L IPA #### [facility] [address] [address] [address] Ayden Cam EGFR-NON AF BRAZILIAN >60 Normal >=60 [facility] Comment on above: Performed By: #### L IPA #### [facility] [address] [address] [address] Ayden Cam Glucose [Mass/Vol] 91 mg/dL Normal 74-106 [facility] Comment on above: Performed By: #### L IPA #### [facility] [address] [address] [address] Ayden Cam Potassium [Moles/Vol] 3.4 mmol/L Critically low 3.5-5.1 [facility] Comment on above: Performed By: #### L IPA #### [facility] [address] [address] [address] Ayden Cam Sodium [Moles/Vol] 138 mmol/L Normal 136-145 [facility] Comment on above: Performed By: #### L IPA #### [facility] [address] [address] [address] Ayden Cam Urea nitrogen [Mass/Vol] 13.0 mg/dL Normal 7.0-18.0 [facility] Comment on above: Performed By: #### L IPA #### [facility] [address] [address] [address] Ayden Cam Urea nitrogen/Creatinine [Mass ratio] 21.3 mg/mg Normal [facility] Comment on above: Performed By: #### L IPA #### [facility] [address] [address] [address] Ayden Cam AMMONIAon 10-05-2022 Ammonia (P) [Moles/Vol] 10 umol/L Critically low 11-32 [facility] Comment on above: Performed By: #### A MM #### [facility] [address] [place] [address] Dr. Ayden Cam AMYLASEon 10-05-2022 Amylase [Catalytic activity/Vol] 109 U/L Normal 25-115 [facility] Comment on above: Performed By: #### A MY #### [facility] [address] [place] [address] Dr. Ayden Cam CBC AUTO DIFFon 10-05-2022 BASO # 0.0 103/ul Normal 0.0-0.1 [facility] Comment on above: Performed By: #### L IPA #### [facility] [address] [place] [address] Dr. Ayden Cam Basophils/100 WBC (Bld) 0.3 % Normal 0.2-2.0 [facility] Comment on above: Performed By: #### L IPA #### [facility] [address] [place] [address] Dr. Ayden Cam EO # 0.3 103/ul Normal 0.0-0.7 [facility] Comment on above: Performed By: #### L IPA #### [facility] [address] [place] [address] Dr. Ayden Cam Eosinophils/100 WBC (Bld) 4.3 % Normal 0.9-7.0 [facility] Comment on above: Performed By: #### L IPA #### [facility] [address] [place] [address] Dr. Ayden Cam Erythrocyte distribution width (RBC) [Ratio] 12.2 % Normal 11.0-15.0 [facility] Comment on above: Performed By: #### L IPA #### [facility] [address] [place] [address] Dr. Ayden Cam Hematocrit (Bld) [Volume fraction] 38.9 % Normal 36.0-48.0 [facility] Comment on above: Performed By: #### L IPA #### [facility] [address] [place] [address] Dr. Ayden Cam Hemoglobin (Bld) [Mass/Vol] 12.8 g/dL Normal 12.0-16.0 [facility] Comment on above: Performed By: #### L IPA #### [facility] [address] [place] [address] Dr. Ayden Cam IG # 0.01 10e3/ul Normal 0.00-0.03 [facility] Comment on above: Performed By: #### L IPA #### [facility] [address] [place] [address] Dr. Ayden Cam IG % 0.2 % Normal 0.0-0.5 [facility] Comment on above: Performed By: #### L IPA #### [facility] [address] [place] [address] Dr. Ayden Cam LYMPH # 1.9 103/ul Normal 1.2-3.8 [facility] Comment on above: Performed By: #### L IPA #### [facility] [address] [place] [address] Dr. Ayden Cam Lymphocytes/100 WBC (Bld) 31.4 % Normal 20.5-60.0 [facility] Comment on above: Performed By: #### L IPA #### [facility] [address] [place] [address] Dr. Ayden Cam MANUAL DIFF REQ NO Normal [facility] Comment on above: Performed By: #### L IPA #### [facility] [address] [place] [address] Dr. Ayden Cam MCH (RBC) [Entitic mass] 29.6 pg Normal 26.7-34.0 [facility] Comment on above: Performed By: #### L IPA #### [facility] [address] [place] [address] Dr. Ayden Cam MCHC (RBC) [Mass/Vol] 32.9 g/dL Normal 29.9-35.2 [facility] Comment on above: Performed By: #### L IPA #### [facility] [address] [place] [address] Dr. Ayden Cam MCV (RBC) [Entitic vol] 89.8 fL Normal 81.0-99.0 [facility] Comment on above: Performed By: #### L IPA #### [facility] [address] [address] [address] Ayden Cam MONO # 0.6 103/ul Normal 0.3-0.8 [facility] Comment on above: Performed By: #### L IPA #### [facility] [address] [address] [address] Ayden Cam Monocytes/100 WBC (Bld) 10.1 % Normal 1.7-12.0 [facility] Comment on above: Performed By: #### L IPA #### [facility] [address] [address] [address] Ayden Cam NEUT # 3.2 103/ul Normal 1.4-6.5 [facility] Comment on above: Performed By: #### L IPA #### [facility] [address] [place] [address] Dr. Ayden Cam Neutrophils/100 WBC (Bld) 53.7 % Normal 43.0-75.0 [facility] Comment on above: Performed By: #### L IPA #### [facility] [address] [address] [address] Ayden Cam Platelet mean volume (Bld) [Entitic vol] 9.7 fL Normal 9.5-13.5 [facility] Comment on above: Performed By: #### L IPA #### [facility] [address] [address] [address] Ayden Cam PLT 168 103/ul Normal 150-450 [facility] Comment on above: Performed By: #### L IPA #### [facility] [address] [address] [address] Ayden Cam RBC 4.33 106/ul Normal 4.20-5.40 [facility] Comment on above: Performed By: #### L IPA #### [facility] [address] [address] [address] Ayden Cam WBC 6.0 103/ul Normal 4.0-11.0 [facility] Comment on above: Performed By: #### L IPA #### [facility] [address] [place] [address] Dr. Ayden Cam LIPASEon 10-05-2022 Lipase [Catalytic activity/Vol] 151.0 U/L Normal 73.0-393.0 [facility] Comment on above: Performed By: #### L IPA #### [facility] [address] [place] [address] Dr. Ayden Cam LIVER PROFILEon 10-05-2022 Albumin [Mass/Vol] 3.2 g/dL Critically low 3.4-5.0 [facility] [place] [facility] Comment on above: Performed By: #### L ACT #### [facility] [address] [place] [address] Dr. Ayden Cam Albumin/Globulin [Mass ratio] 1.1 {ratio} Normal [facility] Comment on above: Performed By: #### L ACT #### [facility] [address] [place] [address] Dr. Ayden Cam ALP [Catalytic activity/Vol] 82 U/L Normal 46-116 [facility] Comment on above: Performed By: #### L ACT #### [facility] [address] [place] [address] Dr. Ayden Cam ALT [Catalytic activity/Vol] 70 U/L Critically high 14-59 [facility] Comment on above: Performed By: #### L ACT #### [facility] [address] [place] [address] Dr. Ayden Cam AST [Catalytic activity/Vol] 36 U/L Normal 15-37 [facility] Comment on above: Performed By: #### L ACT #### [facility] [address] [place] [address] Dr. Ayden Cam BILI, CONJUGATED 0.1 mg/dL Normal 0.0-0.2 [facility] Comment on above: Performed By: #### L ACT #### [facility] [address] [place] [address] Dr. Ayden Cam Bilirubin [Mass/Vol] 0.3 mg/dL Normal 0.2-1.0 [facility] Comment on above: Performed By: #### L ACT #### [facility] [address] [address] [address] Ayden Cam Globulin (S) [Mass/Vol] 3.0 g/dL Normal [facility] Comment on above: Performed By: #### L ACT #### [facility] [address] [address] [address] Ayden Cam Protein [Mass/Vol] 6.2 g/dL Critically low 6.4-8.2 [facility] [place] [facility] Comment on above: Performed By: #### L ACT #### [facility] [address] [address] [address] Ayden Cam PROF CHEM 8 (BAS METB)on Anion gap [Moles/Vol] 9.5 mmol/L Normal [facility] Comment on above: Performed By: #### B MP #### [facility] [address] [place] [address] Dr. Ayden Cam Calcium [Mass/Vol] 8.9 mg/dL Normal 8.5-10.1 [facility] Comment on above: Performed By: #### B MP #### [facility] [address] [place] [address] Dr. Ayden Cam Chloride [Moles/Vol] 105 mmol/L Normal 98-107 [facility] Comment on above: Performed By: #### B MP #### [facility] [address] [place] [address] Dr. Ayden Cam CO2 [Moles/Vol] 29.6 mmol/L Normal 21.0-32.0 [facility] Comment on above: Performed By: #### B MP #### [facility] [address] [place] [address] Dr. Ayden Cam Creatinine [Mass/Vol] 0.56 mg/dL Normal 0.55-1.02 [facility] Comment on above: Performed By: #### B MP #### [facility] [address] [place] [address] Dr. Ayden Cam EGFR-AF BRAZILIAN >60 Normal >=60 [facility] Comment on above: Performed By: #### B MP #### [facility] [address] [address] [address] Ayden Cam EGFR-NON AF BRAZILIAN >60 Normal >=60 [facility] Comment on above: Performed By: #### B MP #### [facility] [address] [address] [address] Ayden Cam Glucose [Mass/Vol] 88 mg/dL Normal 74-106 [facility] Comment on above: Performed By: #### B MP #### [facility] [address] [address] [address] Ayden Cam Potassium [Moles/Vol] 4.1 mmol/L Normal 3.5-5.1 [facility] Comment on above: Performed By: #### B MP #### [facility] [address] [address] [address] Ayden Cam Sodium [Moles/Vol] 140 mmol/L Normal 136-145 [facility] Comment on above: Performed By: #### B MP #### [facility] [address] [place] [address] Dr. Ayden Cam Urea nitrogen [Mass/Vol] 15.0 mg/dL Normal 7.0-18.0 [facility] Comment on above: Performed By: #### B MP #### [facility] [address] [place] [address] Dr. Ayden Cam Urea nitrogen/Creatinine [Mass ratio] 26.8 mg/mg Normal [facility] Comment on above: Performed By: #### B MP #### [facility] [address] [place] [address] Dr. Ayden Cam US Jhony 10-05-2022 US [...] RONAN TORIBIO Date: 2022-10-05 09:52 Normal [facility] XR KUB 1 VIEWon 10-05-2022 XR [...] RONAN TORIBIO Date: 2022-10-05 09:55 Normal [facility] AMYLASEon 10-04-2022 Amylase [Catalytic activity/Vol] 124 U/L Critically high 25-115 [facility] Comment on above: Performed By: #### L IPA, COLE, CMP #### [facility] [address] [place] [address] Dr. Ayden Cam CBC AUTO DIFFon 10-04-2022 BASO # 0.0 103/ul Normal 0.0-0.1 [facility] Comment on above: Performed By: #### L IPA #### [facility] [address] [address] [address] Ayden Cam Basophils/100 WBC (Bld) 0.3 % Normal 0.2-2.0 [facility] Comment on above: Performed By: #### L IPA #### [facility] [address] [place] [address] Dr. Ayden Cam EO # 0.2 103/ul Normal 0.0-0.7 [facility] Comment on above: Performed By: #### L IPA #### [facility] [address] [place] [address] Dr. Ayden Cam Eosinophils/100 WBC (Bld) 2.9 % Normal 0.9-7.0 [facility] Comment on above: Performed By: #### L IPA #### [facility] [address] [place] [address] Dr. Ayden Cam Erythrocyte distribution width (RBC) [Ratio] 12.3 % Normal 11.0-15.0 [facility] Comment on above: Performed By: #### L IPA #### [facility] [address] [place] [address] Dr. Ayden Cam Hematocrit (Bld) [Volume fraction] 42.0 % Normal 36.0-48.0 [facility] Comment on above: Performed By: #### L IPA #### [facility] [address] [place] [address] Dr. Ayden Cam Hemoglobin (Bld) [Mass/Vol] 14.3 g/dL Normal 12.0-16.0 [facility] Comment on above: Performed By: #### L IPA #### [facility] [address] [place] [address] Dr. Ayden Cam IG # 0.02 10e3/ul Normal 0.00-0.03 [facility] Comment on above: Performed By: #### L IPA #### [facility] [address] [place] [address] Dr. Ayden Cam IG % 0.3 % Normal 0.0-0.5 [facility] Comment on above: Performed By: #### L IPA #### [facility] [address] [place] [address] Dr. Ayden Cam LYMPH # 1.7 103/ul Normal 1.2-3.8 [facility] Comment on above: Performed By: #### L IPA #### [facility] [address] [place] [address] Dr. Ayden Cam Lymphocytes/100 WBC (Bld) 22.5 % Normal 20.5-60.0 [facility] Comment on above: Performed By: #### L IPA #### [facility] [address] [place] [address] Dr. Ayden Cam MANUAL DIFF REQ NO Normal [facility] Comment on above: Performed By: #### L IPA #### [facility] [address] [place] [address] Dr. Ayden Cam MCH (RBC) [Entitic mass] 30.1 pg Normal 26.7-34.0 [facility] Comment on above: Performed By: #### L IPA #### [facility] [address] [place] [address] Dr. Ayden Cam MCHC (RBC) [Mass/Vol] 34.0 g/dL Normal 29.9-35.2 [facility] Comment on above: Performed By: #### L IPA #### [facility] [address] [place] [address] Dr. Ayden Cam MCV (RBC) [Entitic vol] 88.4 fL Normal 81.0-99.0 [facility] Comment on above: Performed By: #### L IPA #### [facility] [address] [place] [address] Dr. Ayden Cam MONO # 0.5 103/ul Normal 0.3-0.8 [facility] Comment on above: Performed By: #### L IPA #### [facility] [address] [place] [address] Dr. Ayden Cam Monocytes/100 WBC (Bld) 6.0 % Normal 1.7-12.0 [facility] Comment on above: Performed By: #### L IPA #### [facility] [address] [place] [address] Dr. Ayden Cam NEUT # 5.2 103/ul Normal 1.4-6.5 [facility] Comment on above: Performed By: #### L IPA #### [facility] [address] [place] [address] Dr. Ayden Cam Neutrophils/100 WBC (Bld) 68.0 % Normal 43.0-75.0 [facility] Comment on above: Performed By: #### L IPA #### [facility] [address] [address] [address] Ayden Cam Platelet mean volume (Bld) [Entitic vol] 9.6 fL Normal 9.5-13.5 [facility] Comment on above: Performed By: #### L IPA #### [facility] [address] [place] [address] Dr. Ayden Cam PLT 183 103/ul Normal 150-450 [facility] Comment on above: Performed By: #### L IPA #### [facility] [address] [place] [address] Dr. Ayden Cam RBC 4.75 106/ul Normal 4.20-5.40 [facility] Comment on above: Performed By: #### L IPA #### [facility] [address] [place] [address] Dr. Ayden Cam WBC 7.6 103/ul Normal 4.0-11.0 [facility] Comment on above: Performed By: #### L IPA #### [facility] [address] [place] [address] Dr. Ayden Cam [facility]on SARS-CoV-2 (COVID-19) RNA LOWELL+probe Ql (Unsp spec) Not detected Normal NOT DETECTED [facility] Comment on above: Result Comment: When [...] for this test is supported by the [place] of Health and Human Service's declaration that [...] used). Performed By: #### L IPA #### [facility] [address] [place] [address] Dr. Ayden Cam ER URINE PROFILEon 3 Bilirubin Ql (U) Negative Normal NEGATIVE [facility] Comment on above: Performed By: #### L ACT #### [facility] [address] [place] [address] Dr. Ayden Cam Clarity (U) CLEAR Normal CLEAR [facility] Comment on above: Performed By: #### L ACT #### [facility] [address] [place] [address] Dr. Ayden Cam Color (U) LT. YELLOW Normal YELLOW [facility] Comment on above: Performed By: #### L ACT #### [facility] [address] [place] [address] Dr. Ayden Cam ERUAHD A micrscopic examina tion will be performed if indicated. Normal [facility] Comment on above: Performed By: #### L ACT #### [facility] [address] [place] [address] Dr. Ayden Cam Glucose Ql (U) Negative Normal NEGATIVE [facility] Comment on above: Performed By: #### L ACT #### [facility] [address] [place] [address] Dr. Ayden Cam Hemoglobin Ql (U) Negative Normal NEGATIVE [facility] Comment on above: Performed By: #### L ACT #### [facility] [address] [place] [address] Dr. Ayden Cam Ketones Ql (U) Negative Normal NEGATIVE [facility] Comment on above: Performed By: #### L ACT #### [facility] [address] [place] [address] Dr. Ayden Cam LEUKOCYTES Negative Normal NEGATIVE [facility] Comment on above: Performed By: #### L ACT #### [facility] [address] [place] [address] Dr. Ayden Cam Nitrite Ql (U) Negative Normal NEGATIVE [facility] Comment on above: Performed By: #### L ACT #### [facility] [address] [place] [address] Dr. Ayden Cam pH (U) 8.5 [pH] Normal 5-9 [facility] Comment on above: Performed By: #### L ACT #### [facility] [address] [place] [address] Dr. Ayden Cam SPEC GRAVITY 1.015 Normal 1.005-<=1.02 5 [facility] Comment on above: Performed By: #### L ACT #### [facility] [address] [place] [address] Dr. Ayden Cam UA PROTEIN Negative Normal NEGATIVE/ TRACE [facility] Comment on above: Performed By: #### L ACT #### [facility] [address] [place] [address] Dr. Ayden Cam UR MICRO IND NOT INDICATED Normal [facility] Comment on above: Performed By: #### L ACT #### [facility] [address] [place] [address] Dr. Ayden Cam Urobilinogen Qn (U) 0.2 {Peggy'U}/dL Normal 0.2 - 1. 0 [facility] Comment on above: Performed By: #### L ACT #### [facility] [address] [place] [address] Dr. Ayden Cam LACTATE/LACTIC ACIDon 2022 Lactate [Moles/Vol] 0.8 mmol/L Normal 0.4-1.9 [facility] Comment on above: Performed By: #### L ACT #### [facility] [address] [place] [address] Dr. Ayden Cam LIPASEon 10-04-2022 Lipase [Catalytic activity/Vol] 170.0 U/L Normal 73.0-393.0 [facility] Comment on above: Performed By: #### L ACT #### [facility] [address] [place] [address] Dr. Ayden Cam PROF 14(COMP METB)on 023 Albumin [Mass/Vol] 3.8 g/dL Normal 3.4-5.0 [facility] Comment on above: Performed By: #### L ACT #### [facility] [address] [address] [address] Ayden Cam Albumin/Globulin [Mass ratio] 1.1 {ratio} Normal [facility] Comment on above: Performed By: #### L ACT #### [facility] [address] [address] [address] Ayden Cam ALP [Catalytic activity/Vol] 101 U/L Normal 46-116 [facility] Comment on above: Performed By: #### L ACT #### [facility] [address] [address] [address] Ayden Cam ALT [Catalytic activity/Vol] 94 U/L Critically high 14-59 [facility] Comment on above: Performed By: #### L ACT #### [facility] [address] [place] [address] Dr. Ayden Cam Anion gap [Moles/Vol] 11.1 mmol/L Normal [facility] Comment on above: Performed By: #### L ACT #### [facility] [address] [place] [address] Dr. Ayden Cam AST [Catalytic activity/Vol] 59 U/L Critically high 15-37 [facility] Comment on above: Performed By: #### L ACT #### [facility] [address] [place] [address] Dr. Ayden Cam Bilirubin [Mass/Vol] 0.3 mg/dL Normal 0.2-1.0 [facility] Comment on above: Performed By: #### L ACT #### [facility] [address] [address] [address] Ayden Cam Calcium [Mass/Vol] 9.5 mg/dL Normal 8.5-10.1 [facility] Comment on above: Performed By: #### L ACT #### [facility] [address] [place] [address] Dr. Ayden aCm Chloride [Moles/Vol] 99 mmol/L Normal 98-107 [facility] Comment on above: Performed By: #### L ACT #### [facility] [address] [place] [address] Dr. Ayden Cam CO2 [Moles/Vol] 29.7 mmol/L Normal 21.0-32.0 [facility] Comment on above: Performed By: #### L ACT #### [facility] [address] [address] [address] Ayden Cam Creatinine [Mass/Vol] 0.61 mg/dL Normal 0.55-1.02 [facility] Comment on above: Performed By: #### L ACT #### [facility] [address] [address] [address] Ayden Cam EGFR-AF BRAZILIAN >60 Normal >=60 [facility] Comment on above: Performed By: #### L ACT #### [facility] [address] [place] [address] Dr. Ayden Cam EGFR-NON AF BRAZILIAN >60 Normal >=60 [facility] Comment on above: Performed By: #### L ACT #### [facility] [address] [address] [address] Ayden Cam Globulin (S) [Mass/Vol] 3.4 g/dL Normal [facility] Comment on above: Performed By: #### L ACT #### [facility] [address] [address] [address] Ayden Cam Glucose [Mass/Vol] 111 mg/dL Critically high 74-106 [facility] Comment on above: Performed By: #### L ACT #### [facility] [address] [address] [address] Ayden Cam Potassium [Moles/Vol] 3.8 mmol/L Normal 3.5-5.1 [facility] Comment on above: Performed By: #### L ACT #### [facility] [address] [address] [address] Ayden Cam Protein [Mass/Vol] 7.2 g/dL Normal 6.4-8.2 [facility] Comment on above: Performed By: #### L ACT #### [facility] [address] [address] [address] Ayden Cam Sodium [Moles/Vol] 136 mmol/L Normal 136-145 [facility] Comment on above: Performed By: #### L ACT #### [facility] [address] [address] [address] Ayden Cam Urea nitrogen [Mass/Vol] 23.0 mg/dL Critically high 7.0-18.0 [facility] Comment on above: Performed By: #### L ACT #### [facility] [address] [address] [address] Ayden Cam Urea nitrogen/Creatinine [Mass ratio] 37.7 mg/mg Normal [facility] Comment on above: Performed By: #### L ACT #### [facility] [address] [address] [address] Ayden Cam TROPONIN, HIGH SENSITIVITYon 10-04-2022 HSTROP 8.9 pg/mL Normal 4.0-51.3 [facility] Comment on above: Result Comment: CUT- OFF POINTS HAVE BEEN ESTABLISHED BASED ON THE FOURTH UNIVERSAL DEFINITIONS OF MYOCARDIAL INFARCTION. THE UPPER REFERENCE LIMIT (URL) OF TROPONIN, DEFINED THE 99TH PERCENTILE OF cTnI DISTRIBUTION IN A REFERENCE POPULATION, HAS BEEN CONFIRMED THE DECISION THRESHOLD FOR MT DIAGNOSIS. Performed By: #### L ACT #### [facility] [address] [place] [address] Dr. Ayden Cam LIPID PROFILEon 09-19-2022 CHOL-HDL RATIO NORM SEE BELOW Normal [facility] Comment on above: Result Comment: 3.3 - 4.4 LOW RISK 4.4 - 7.1 AVERAGE RISK 7.1 - 11.0 MODERATE RISK >11.0 HIGH RISK Performed By: #### L IPA #### [facility] [address] [place] [address] Dr. Ayden Cam Cholesterol [Mass/Vol] 116 mg/dL Normal <=200 [facility] Comment on above: Performed By: #### L IPA #### [facility] [address] [address] [address] Ayden Cam Cholesterol in HDL [Mass/Vol] 59 mg/dL Normal 40-60 [facility] Comment on above: Performed By: #### L IPA #### [facility] [address] [address] [address] Ayden Cam Cholesterol in LDL [Mass/Vol] 34.0 mg/dL Normal [facility] Comment on above: Performed By: #### L IPA #### [facility] [address] [address] [address] Ayden Cam Cholesterol.total/Cho lesterol in HDL [Mass ratio] 2.0 {ratio} Normal [facility] Comment on above: Performed By: #### L IPA #### [facility] [address] [address] [address] Ayden Cam HDL NORMAL > or = 60 mg/dl - LO W CARDIOVASCULAR RISK <40 mg/dl - HIGH CARDIOVASCULAR RISK Normal [facility] Comment on above: Performed By: #### L IPA #### [facility] [address] [place] [address] Dr. Ayden Cam LDL CALC NORMAL SEE BELOW Normal [facility] Comment on above: Result Comment: <100 mg/dl OPTIMAL 100 - 129 mg/dl NEAR OR ABOVE OPTIMAL 130 - 159 mg/dl BORDERLINE HIGH 160 - 189 mg/dl HIGH >190 mg/dl VERY HIGH Performed By: #### L IPA #### [facility] [address] [place] [address] Dr. Ayden Cam Triglyceride [Mass/Vol] 115 mg/dL Normal <=150 [facility] Comment on above: Performed By: #### L IPA #### [facility] [address] [place] [address] Dr. Ayden Cam VLDL CALC 23.0 mg/dL Normal [facility] Comment on above: Performed By: #### L IPA #### [facility] [address] [place] [address] Dr. Ayden Cam VITAMIN D 25 OHon 09-19-2022 VIT D 25-OH 89.3 ng/mL Normal [facility] Comment on above: Performed By: #### V ITAD #### [facility] [address] [place] [address] Dr. Ayden Cam VIT D RANGES SEE BELOW Normal [facility] Comment on above: Result Comment: <20 ng/mL Vit D deficient 20 - <30 ng/mL Vit D insufficient 30 - 100 ng/mL Vit D sufficient >100 ng/mL Potential Toxicity Performed By: #### V ITAD #### [facility] [address] [address] [address] Ayden Cam Office Visit (Cardiology)on 08-15-2022 Follow-up visit Diagnoses/Problems Assessed Atherosclerosis of coronary artery of [place] heart without angina pectoris (414.01) (I25.10) History of coronary artery bypass graft (V45.81) (Z95.1) Ischemic cardiomyopathy (414.8) (I25.5) Hyperlipidemia (272.4) (E78.5) Essential hypertension, benign (401.1) (I10) Never a smoker Overweight with body mass index (BMI) of 26 to 26.9 in adult (278.02,V85.22) (E66.3,Z68.26) Paroxysmal SVT (supraventricular tachycardia) (427.0) (I47.1) Orders Atherosclerosis of coronary artery of [place] heart without angina pectoris, Essential hypertension, benign, Hyperlipidemia Basic Metabolic Panel; Status:Active - Retrospective Authorization; Requested for:[id number]; Lipid Panel; Status:Active - Retrospective Authorization; Requested for:[id number]; Overweight with body mass index (BMI) of 26 to 26.9 in adult Healthy Weight Tips; Status:Complete - Retrospective Authorization; Done: [id number] Some eating tips that can help you lose weight.; Status:Complete - Retrospective Authorization; Done: [id number] SocHx: Never a smoker Tobacco Use Screening; Status:Complete; Done: [id number] Patient Instructions Please bring all medicines, vitamins, [...] She has a history of prior inferior MT, prior PCI with subsequent three-vessel CABG and [...] CHEST PAIN.CALL 911 IF PAIN PERSISTS. Nyamyc [id number] UNIT/GM External Powderapply topically to affected area [...] Tobacco Screening.on Adult depression screening assessment No [facility] [employer] [address] DO Work Phone: Fall risk assessment a) No falls within the last year [facility] [employer] [facility] 250 DO Work Phone: Tobacco use status [facility]PH[facility] b) No [facility] [employer] y 250 DO Work Phone: MRI Ankle [...] by Wilder Arango on 08/01/2022 1102 Normal [facility] Tobacco Screening.on 021 Tobacco use status [facility]PHS b) No -[facility] [facility] 250 DO Work Phone: Vital Signs Date Time Vital Sign Value Performing Clinician Facility 09-05-2024 09:53-0500 Body height 160 cm Celso Garibay DO Work Phone: [facility] 09-05-2024 09:53-0500 Body mass index (BMI) [Ratio] 30.11 kg/m2 Celso Garibay DO Work Phone: [facility] 09-05-2024 09:53-0500 Body weight 77.11 kg Celso Garibay DO Work Phone: [facility] 09-05-2024 09:53-0500 Diastolic blood pressure 80 mm[Hg] Celso Garibay DO Work Phone: [facility] 09-05-2024 09:53-0500 Heart rate 66 /min Celso Garibay DO Work Phone: [facility] 09-05-2024 09:53-0500 Systolic blood pressure 118 mm[Hg] Celso Phoenix DO Work Phone: [facility] 08-19-2024 01:03-0500 Diastolic blood pressure 69 mm[Hg] Ashley Grigsby MD Work Phone: [facility] 08-19-2024 01:03-0500 Heart rate 60 /min Ashley Grigsby MD Work Phone: [facility] 08-19-2024 01:03-0500 Respiratory rate 20 /min Ashley Grigsby MD Work Phone: [facility] 08-19-2024 01:03-0500 SaO2% (BldA) [Mass fraction] 96 % Ashley Grigsby MD Work Phone: [facility] 08-19-2024 01:03-0500 Systolic blood pressure 130 mm[Hg] Ashley Grigsby MD Work Phone: [facility] 08-18-2024 20:55-0500 Body height 160.02 cm Ashley Grigsby MD Work Phone: [facility] 08-18-2024 20:55-0500 Body temperature 97.4 [degF] Ashley Grigsby MD Work Phone: [facility] 08-18-2024 20:55-0500 Body weight 78.5 kg Ashley Grigsby MD Work Phone: [facility] 08-13-2024 12:21-0500 Body height 160 cm Celso Garibay DO Work Phone: [facility] 08-13-2024 12:21-0500 Body mass index (BMI) [Ratio] 30.47 kg/m2 Celso Garibay DO Work Phone: [facility] 08-13-2024 12:21-0500 Body weight 78.02 kg Celso Garibay DO Work Phone: [facility] 08-13-2024 12:21-0500 Diastolic blood pressure 94 mm[Hg] Celso Garibay DO Work Phone: [facility] 08-13-2024 12:21-0500 Heart rate 76 /min Celso Garibay DO Work Phone: [facility] 08-13-2024 12:21-0500 Systolic blood pressure 138 mm[Hg] Celso Garibay DO Work Phone: [facility] 08-05-2024 11:08-0500 Blood Pressure Location JENNIFER MARTINO [facility] 08-05-2024 11:08-0500 Body temperature 98.6 [degF] [place] [facility] 08-05-2024 11:08-0500 Diastolic blood pressure 80 mm[Hg] [place] [facility] 08-05-2024 11:08-0500 Heart rate 68 /min [place] [facility] 08-05-2024 11:08-0500 Respiratory rate 16 /min [place] [facility] 08-05-2024 11:08-0500 Systolic blood pressure 131 mm[Hg] [place] [facility] 04-10-2024 15:08-0400 Blood Pressure Location [place] [facility] 04-10-2024 15:08-0400 Diastolic blood pressure 80 mm[Hg] [place] [facility] 04-10-2024 15:08-0400 Heart rate 75 /min [place] [facility] 04-10-2024 15:08-0400 Respiratory rate 16 /min [place] [facility] 04-10-2024 15:08-0400 Systolic blood pressure 131 mm[Hg] [place] [facility] 08-14-2023 15:29-0500 Body height 161.3 cm Celso Garibay DO Work Phone: [facility] 08-14-2023 15:29-0500 Body mass index (BMI) [Ratio] 28.07 kg/m2 Celso Garibay DO Work Phone: [facility] 08-14-2023 15:29-0500 Body weight 73.03 kg Celso Garibay DO Work Phone: [facility] 08-14-2023 15:29-0500 Diastolic blood pressure 80 mm[Hg] Celso Garibay DO Work Phone: [facility] 08-14-2023 15:29-0500 Heart rate 56 /min Celso Garibay DO Work Phone: [facility] 08-14-2023 15:29-0500 Systolic blood pressure 138 mm[Hg] Celso Garibay DO Work Phone: [facility] 06-18-2023 15:15-0400 Diastolic blood pressure 78 mm[Hg] Gaby Tello DO Work Phone: [employer] 06-18-2023 15:15-0400 Heart rate 70 /min Gaby Tello DO Work Phone: [employer] 06-18-2023 15:15-0400 Respiratory rate 18 /min Gaby Novoag DO Work Phone: [employer] 06-18-2023 15:15-0400 SaO2% (BldA) [Mass fraction] 96 % Gaby Novoag DO Work Phone: [employer] 06-18-2023 15:15-0400 Systolic blood pressure 173 mm[Hg] Gaby Novoag DO Work Phone: [employer] 06-18-2023 14:36-0400 Body temperature 97 [degF] Gaby Novoag DO Work Phone: [employer] 06-18-2023 13:30-0400 Body height 160 cm Gaby Tello DO Work Phone: [facility] 06-18-2023 13:30-0400 Body mass index (BMI) [Ratio] 27.03 kg/m2 Gaby [facility]ello DO [facility] 06-18-2023 13:30-0400 Body weight 69.22 kg Gaby Tello DO Work Phone: [facility] 11-02-2022 15:02-0500 Diastolic blood pressure 84 mm[Hg] MD Ashley Grigsby Work Phone: [facility] 11-02-2022 15:02-0500 Heart rate 78 /min MD Ashley Grigsby Work Phone: [facility] 11-02-2022 15:02-0500 Respiratory rate 18 /min MD Ashley Grigsby Work Phone: [facility] 11-02-2022 15:02-0500 SaO2% (BldA) [Mass fraction] 100 % MD Ashley Grigsby Work Phone: [facility] 11-02-2022 15:02-0500 Systolic blood pressure 161 mm[Hg] MD Ashley Grigsby Work Phone: [facility] 11-02-2022 13:20-0500 Body height 160.02 cm MD Ashley Grigsby Work Phone: [facility] 11-02-2022 13:20-0500 Body temperature 98.2 [degF] MD Ashley Grigsby Work Phone: [facility] 11-02-2022 13:20-0500 Body weight 60.78 kg MD Ashley Grigsby Work Phone: [facility] 11-01-2022 13:26-0500 Diastolic blood pressure 61 mm[Hg] MD Ashley Grigsby Work Phone: [facility] 11-01-2022 13:26-0500 Heart rate 59 /min MD Ashley Grigsby Work Phone: [facility] 11-01-2022 13:26-0500 Respiratory rate 20 /min MD Ashley Grigsby Work Phone: [facility] 11-01-2022 13:26-0500 SaO2% (BldA) [Mass fraction] 99 % MD Ashley Grigsby Work Phone: [facility] 11-01-2022 13:26-0500 Systolic blood pressure 124 mm[Hg] MD Ashley Grigsby Work Phone: [facility] 11-01-2022 10:53-0500 Body height 160.02 cm MD Ashley Grigsby Work Phone: [facility] 11-01-2022 10:53-0500 Body temperature 97.7 [degF] MD Ashley Grigsby Work Phone: [facility] 11-01-2022 10:53-0500 Body weight 61.68 kg MD Ashley Grigsby Work Phone: [facility] 10-24-2022 15:45-0500 Body height 159.38 cm Imad Asaad Other [employer] Other 10-24-2022 15:45-0500 Body mass index (BMI) [Ratio] 24.28 kg/m2 Imad Asaad Other [facility] Other 10-24-2022 15:45-0500 Body weight 61.69 kg Imad Asaad Other [facility] Other 10-24-2022 15:45-0500 Diastolic blood pressure 94 mm[Hg] Imad Asaad Other [employer] Other 10-24-2022 15:45-0500 Systolic blood pressure 133 mm[Hg] Imad Asaad Other [employer] Other 09-19-2022 00:00-0500 34 1 Ashley M Hoy Work Phone: [facility] DO Work Phone: Comment on above: [facility] 08-15-2022 15:23-0500 Body height 160.02 cm Ashley M Hoy Work Phone: [facility] DO Work Phone: 08-15-2022 15:23-0500 Body mass index (BMI) [Ratio] 26.22 kg/m2 Ashley M Hoy Work Phone: [facility] DO Work Phone: 08-15-2022 15:23-0500 Body surface area Derived from formula 1.7 m2 Ashley M Hoy Work Phone: [facility] DO Work Phone: 08-15-2022 15:23-0500 Body weight 67.13 kg Ashley M Hoy Work Phone: [facility] DO Work Phone: 08-15-2022 15:23-0500 Diastolic blood pressure 82 mm[Hg] Ashley M Hoy Work Phone: [facility] DO Work Phone: 08-15-2022 15:23-0500 Heart rate 80 /min Ashley M Hoy Work Phone: [facility] DO Work Phone: 08-15-2022 15:23-0500 Systolic blood pressure 132 mm[Hg] Ashley M Hoy Work Phone: [facility] DO Work Phone: 06-02-2022 08:12-0400 Blood Pressure Location Santiago CARRILLO [facility] [place] [address]-02-2022 08:12-0400 Diastolic blood pressure 86 mm[Hg] Santiago CARRILLO [facility] 06-02-2022 08:12-0400 Heart rate 60 /min Santiago CARRILLO [facility] 06-02-2022 08:12-0400 Respiratory rate 16 /min Santiago CARRILLO [facility] 06-02-2022 08:12-0400 Systolic blood pressure 144 mm[Hg] Santiago CARRILLO [facility] 08-17-2021 09:47-0500 Body height 160.02 cm Ashley M Hoy Work Phone: [facility] DO Work Phone: 08-17-2021 09:47-0500 Body mass index (BMI) [Ratio] 25.01 kg/m2 Ashley M Hoy Work Phone: [facility] DO Work Phone: 08-17-2021 09:47-0500 Body surface area Derived from formula 1.67 m2 Ashley M Hoy Work Phone: [facility] DO Work Phone: 08-17-2021 09:47-0500 Body weight 64.05 kg Ashley M Hoy Work Phone: [facility] DO Work Phone: 08-17-2021 09:47-0500 Diastolic blood pressure 86 mm[Hg] Ashley M Hoy Work Phone: [facility] DO Work Phone: 08-17-2021 09:47-0500 Heart rate 72 /min Ashley M Hoy Work Phone: [facility] DO Work Phone: 08-17-2021 09:47-0500 Systolic blood pressure 134 mm[Hg] Ashley Tyree Seb Work Phone: [facility] DO Work Phone: Encounters Encounter Date Encounter Type Care Provider Facility Start: 09-05-2024 End: 09-05-2024 ambulatory [facility] Start: 09-05-2024 End: 09-05-2024 Transitional care manage srvc 14 day discharge [facility] DO Work Phone: [facility] Comment on above: Atherosclerosis of c oronary artery bypass graft of [place] heart without angina pectoris; S/P PTCA (percutaneous transluminal coronary angioplasty); History of coronary artery bypass graft; Ischemic cardiomyopathy; Essential hypertension; Mixed hyperlipidemia; BMI 30.0-30.9,adult; Statin intolerance Start: 08-20-2024 End: 08-22-2024 Evaluation and management of inpatient Donis Arroyo Facility:[facility] Start: 08-18-2024 Evaluation and management of inpatient Ashley Grigsby MD Work Phone: [facility] [place] [facility] Work Phone: Start: 08-18-2024 observation encounter Ashley Grigsby MD Work Phone: [facility] Work Phone: Start: 08-13-2024 End: 08-13-2024 ambulatory [facility] Start: 08-13-2024 End: 08-13-2024 [facility] Comment on above: Atherosclerosis of c oronary artery of [place] heart without angina pectoris, unspecified vessel or lesion type; History of coronary artery bypass graft; Essential hypertension, benign; Hyperlipidemia, unspecified hyperlipidemia type; Acute pancreatitis, unspecified complication status, unspecified pancreatitis type ([facility]) Start: 08-05-2024 End: 08-05-2024 ambulatory BARRY MARTINO Facility:[facility] Start: 08-05-2024 End: 08-05-2024 Patient encounter procedure JENNIFER MARTINO [facility] Start: 04-10-2024 End: 04-10-2024 ambulatory PA-C JENNIFER MARTINO Facility:[facility] Start: 04-10-2024 End: 04-10-2024 Patient encounter procedure JENNIFER MARTINO [facility] Start: 03-11-2024 End: 03-11-2024 ambulatory PA-C JENNIFER MARTINO Facility:[facility] Start: 03-11-2024 End: 03-11-2024 Patient encounter procedure JENNIFER MARTINO [facility] Start: 03-07-2024 End: 03-07-2024 Evaluation and management of inpatient ASHLEIGH LETHA [facility] Start: 03-06-2024 End: 03-07-2024 Evaluation and management of inpatient [facility] Start: 03-06-2024 End: 03-06-2024 Evaluation and management of inpatient [facility] Start: 02-29-2024 End: 02-29-2024 Evaluation and management of inpatient ASHLEY M SEB [facility] Start: 02-27-2024 ambulatory [facility] Start: 02-27-2024 End: 02-27-2024 ambulatory [facility] Start: 01-17-2024 End: 01-17-2024 ambulatory STEPHANIE BERGER [facility] Start: 09-13-2023 End: 09-13-2023 ambulatory ALINA JAVIER Not Available Start: 08-14-2023 End: 08-14-2023 Office outpatient visit 15 minutes Celso Garibay DO Work Phone: [facility] Comment on above: Atherosclerosis of c oronary artery of [place] heart without angina pectoris, unspecified vessel or lesion type; History of coronary artery bypass graft; Ischemic cardiomyopathy; Essential hypertension, benign Start: 06-18-2023 End: 06-18-2023 ambulatory GABY TELLO [facility] Start: 06-18-2023 End: 06-18-2023 Subsequent hospital visit by physician Gaby Tello DO Work Phone: [facility] Comment on above: Post-menopausal blee ding; Inclusion cyst Start: 05-24-2023 Rx Renewal Ashley Grigsby Work Phone: [facility] 250 DO Work Phone: Start: 05-17-2023 Patient encounter procedure Ashley Grigsby Work Phone: [facility] 250 DO Work Phone: Start: 05-15-2023 [facility] Start: 12-12-2022 End: 12-12-2022 ambulatory MD Ashley Grigsby Work Phone: [facility] Work Phone: Start: 12-12-2022 End: 12-12-2022 Patient encounter procedure MD Ashley Grigsby Work Phone: [facility] Work Phone: Start: 11-20-2022 End: 11-20-2022 ambulatory Imad Asaad Other [facility] Other Start: 11-20-2022 Telephone encounter Imad Asaad [facility] Start: 11-10-2022 End: 11-10-2022 Patient encounter procedure MD Ashley Grigsby Work Phone: [facility] Work Phone: Start: 11-02-2022 End: 11-02-2022 Admission to same day surgery center MD Ashley Grigsby Work Phone: [facility] Work Phone: Start: 11-02-2022 End: 11-02-2022 ambulatory MD Ashley Grigsby Work Phone: [facility] Work Phone: Start: 11-01-2022 Telephone encounter Imad Asaad [facility] Start: 11-01-2022 End: 11-01-2022 Admission to same day surgery center MD Ashley Grigsby Work Phone: [facility] Work Phone: Start: 11-01-2022 End: 11-01-2022 ambulatory MD Ashley Grigsby Work Phone: [facility] Work Phone: Start: 10-24-2022 End: 10-24-2022 ambulatory Imad Asaad Other [facility] [place] Other Start: 10-24-2022 [facility] visit new patient Imad Asaad [facility] Start: 10-16-2022 End: 10-17-[address] ASHLEY GRIGSBY Facility:H1 Start: 10-09-2022 End: 10-10-[address] ASHLEY GRIGSBY Facility:H1 Start: 10-05-2022 Rx Renewal Ashley Grigsby Work Phone: [facility] 250 DO Work Phone: Start: 10-04-2022 End: 10-06-[address] ASHLEY GRIGSBY Facility:H1 Start: 09-19-2022 End: 09-20-[address] DOCTOR PATEL Facility:H1 Start: 08-15-2022 Office outpatient vi sit 15 minutes Ashley Grigsby Work Phone: [facility] [address] DO Work Phone: Start: 08-15-2022 Patient encounter procedure Ashley Grigsby Work Phone: [facility] [address] DO Work Phone: Start: 06-02-2022 End: 06-02-2022 Patient encounter procedure Santiago CARRILLO [facility] Start: 05-31-2022 Rx Renewal Ashley Grigsby Work Phone: [facility] [address] DO Work Phone: Start: 02-07-2022 End: 02-07-2022 Patient encounter procedure Ashley Grigsby MD Work Phone: [facility] Start: 02-07-2022 End: 02-07-2022 Subsequent hospital visit by physician Ashley Grigsby MD Work Phone: [facility] Comment on above: Women's annual routi ne gynecological examination Start: 11-21-2021 Rx Renewal Ashley Grigsby Work Phone: [facility] [address] DO Work Phone: Start: 08-17-2021 Office outpatient vi sit 15 minutes Ashley Grigsby Work Phone: [facility] [address] DO Work Phone: Start: 08-19-2019 End: 08-19-2019 Subsequent [facility] Comment on above: Well [...] [Identifier] in Cervix by Cyto stain Gaby Telol DO Work Phone: Start: 11-01-2019 Excision of [...] 11-02-2032 Screening for malignant neoplasm of colon [facility] Start: 02-07-2027 Screening for malignant neoplasm of cervix [facility] Start: 08-18-2025 End: 08-18-2025 Patient encounter procedure 08/18/2025 11:20 AM EST Office Visit [facility] [address] [place] [address] Celso Garibay DO [address] [place] [address] [facility] Start: 08-03-2025 End: 08-13-2025 Alanine aminotransferase [Enzymatic activity/volume] in Serum or Plasma by With P-5'-P Alanine Aminotransferase Lab Routine Hyperlipidemia, unspecified hyperlipidemia type Expected: 08/03/2025 (Approximate), Expires: 08/13/2025 [facility] Service Area Work Phone: Comment on above: Expected: 08/03/2025 (Approximate), Expi res: 08/13/2025 Start: 08-03-2025 End: 08-13-2025 Aspartate aminotransferase [Enzymatic activity/volume] in Serum or Plasma by With P-5'-P Aspartate Aminotransferase Lab Routine Hyperlipidemia, unspecified hyperlipidemia type Expected: 08/03/2025 (Approximate), Expires: 08/13/2025 [facility] Work Phone: Comment on above: Expected: 08/03/2025 (Approximate), Expi res: 08/13/2025 Start: 08-03-2025 End: 08-13-2025 Lipid 1996 panel - Serum or Plasma Lipid Panel Lab Routine Hyperlipidemia, unspecified hyperlipidemia type Expected: 08/03/2025 (Approximate), Expires: 08/13/2025 [facility] Work Phone: Comment on above: Expected: 08/03/2025 (Approximate), Expi res: 08/13/2025 Start: 03-17-2025 End: 03-17-2025 Patient encounter procedure 03/17/2025 2:40 PM EDT Office Visit [facility] [address] [place] [address] Celso Garibay, [address] [place] [address] [facility] Start: 02-07-2025 Screening for malignant neoplasm of cervix [facility] Start: 08-19-2024 Screening for malignant neoplasm of cervix [facility] Start: 08-19-2024 [facility] Start: 08-19-2024 Referral to geriatric nursing assistant [facility] Start: 08-19-2024 [facility] Start: 08-18-2024 Hospital admission [facility] Start: 08-15-2024 Screening for malignant neoplasm of breast Mammogram [facility] Start: 08-13-2024 End: 08-13-2024 Patient encounter procedure 08/13/2024 11:30 AM EST Office Visit [facility] [address] [place] [address] Celso Garibay, DO [address] [place] [address] [facility] Start: 2024 RSV High Risk: (Elderly (60+) or Population) (1 - Risk 60-74 years 1-dose series) RSV High Risk: (Elderly (60+) or Population) (1 - Risk 60-74 years 1-dose series) [facility] Start: 06-01-2024 COVID-19 Vaccine ( season) COVID-19 Vaccine ( season) [facility] Start: 02-14-2024 Depression Screen Depression Screen [facility] Start: 02-12-2024 End: 08-14-2024 Alanine aminotransferase [Enzymatic activity/volume] in Serum or Plasma by With P-5'-P Alanine Aminotransferase Lab Routine History of coronary artery bypass graft Ischemic cardiomyopathy Expected: 02/12/2024 (Approximate), Expires: 08/14/2024 [facility] Work Phone: Comment on above: Expected: 02/12/2024 (Approximate), Expi res: 08/14/2024 Start: 02-12-2024 End: 08-14-2024 Aspartate aminotransferase [Enzymatic activity/volume] in Serum or Plasma by With P-5'-P Aspartate Aminotransferase Lab Routine Atherosclerosis of coronary artery of [place] heart without angina pectoris, unspecified vessel or lesion type Ischemic cardiomyopathy Expected: 02/12/2024 (Approximate), Expires: 08/14/2024 [facility] Work Phone: Comment on above: Expected: 02/12/2024 (Approximate), Expi res: 08/14/2024 Start: 02-12-2024 End: 08-14-2024 Lipid 1996 panel - Serum or Plasma Lipid Panel Lab Routine Atherosclerosis of coronary artery of [place] heart without angina pectoris, unspecified vessel or lesion type Expected: 02/12/2024 (Approximate), Expires: 08/14/2024 [facility] Service Area Work Phone: Comment on above: Expected: 02/12/2024 (Approximate), Expi res: 08/14/2024 Start: 08-14-2023 FUV, Provider: Celso Garibay, Status: Pen, Time: 3:00 PM FUV, Provider: Celso Garibay, Status: Pen, Time: 3:00 PM [facility] Work Phone: Start: 07-28-2023 Screening for malignant neoplasm of breast Breast cancer screen [facility] Start: 07-24-2023 Screening for malignant neoplasm of breast Mammogram [facility] Start: 07-03-2023 End: 07-03-2023 Patient encounter procedure 07/03/2023 4:45 PM EDT Office Visit [facility] [address] [place] [address] Gaby Phillips, DO [address] [place] [address] post-op BA 05/16 [facility] Comment on above: post-op BA 05/16 Start: 06-18-2023 End: 06-18-2023 Hysteroscopy bx endometrium&/polypc w/wo d&c DILATATION AND CURETTAGE HYSTEROSCOPY Post-menopausal bleeding Inclusion cyst 06/18/2023 2:01 PM EDT [facility] Start: 02-13-2023 End: 02-13-2023 Patient encounter procedure 02/13/2023 Office Visit Obstetrics and Gynecology Gaby Phillips, DO [address] [place] [address] [facility] Start: 12-12-2022 [facility] Start: 11-02-2022 [facility] Start: 11-01-2022 [facility] Start: 08-19-2022 Screening for malignant neoplasm of cervix Pap smear [facility] Start: 08-15-2022 FUV, Provider: Celso Garibay, Status: Pen, Time: 3:00 PM FUV, Provider: Celso Garibay, Status: Pen, Time: 3:00 PM [facility] Work Phone: Start: 08-03-2022 Lipid panel Lipids [facility] Start: 12-27-2021 COVID-19 Vaccine (4 - Pfizer series) COVID-19 Vaccine (4 - Pfizer series) SADI RODRIGUEZ [facility] Start: 06-01-2019 Influenza vaccination Flu vaccine (#1) [place] Start: 05-09-2018 Pneumococcal Vaccine: Pediatrics (0 to 5 Years) and At-Risk Patients (6 to 64 Years) (2 - PCV) Pneumococcal Vaccine: Pediatrics (0 to 5 Years) and At-Risk Patients (6 to 64 Years) (2 - PCV) [facility] Start: 05-09-2018 Pneumococcal Vaccine: Pediatrics (0 to 5 Years) and At-Risk Patients (6 to 64 Years) (2 of 2 - PCV) Pneumococcal Vaccine: Pediatrics (0 to 5 Years) and At-Risk Patients (6 to 64 Years) (2 of 2 - PCV) [facility] Start: 2014 Breast cancer screen Breast cancer screen [place], [place] Start: 2014 Colon cancer screen colonoscopy Colon cancer screen colonoscopy [place] Start: 2014 Shingles Vaccine (1 of 2) Shingles Vaccine (1 of 2) [facility] Start: 08-26-2009 MMR Vaccines (1 of 1 - Standard series) MMR Vaccines (1 of 1 - Standard series) [facility] Start: 2009 Screening for malignant neoplasm of colon [facility] Start: 1999 Diabetes screen Diabetes screen [facility] Start: 1986 DTaP/Tdap/Td Vaccines (1 - Tdap) DTaP/Tdap/Td Vaccines (1 - Tdap) [facility] Start: 1985 Cervical cancer screen Cervical cancer screen [place], [place] Start: 1985 Screening for malignant neoplasm of cervix [facility] Start: 1983 DTaP/Tdap/Td vaccine (1 - Tdap) DTaP/Tdap/Td vaccine (1 - Tdap) [facility] Start: 1982 Diabetes mellitus screening Diabetes Screening [facility] Start: 1982 Hepatitis C screening [facility] Start: 1979 HIV screen HIV screen [place], [place] Start: 1979 HIV screening HIV screen [facility] Start: 1976 Depression Screen Depression Screen [facility] Start: 1975 DTaP/Tdap/Td vaccine (1 - Tdap) DTaP/Tdap/Td vaccine (1 - Tdap) [facility] Start: 1974 Lipid panel Lipids [facility] Start: 1974 Lipid screen Lipid screen [place], [place] Start: 1964 Hepatitis B vaccine (1 of 3 - 3-dose series) Hepatitis B vaccine (1 of 3 - 3-dose series) [facility] Start: 1964 Hepatitis B Vaccines (1 of 3 - 3-dose series) Hepatitis B Vaccines (1 of 3 - 3-dose series) [facility] Start: 1964 Hepatitis C screen Hepatitis C screen [place], [place] Start: 1964 HIV screening HIV Screening [facility] Start: 1964 Lipid panel Lipid Panel [facility] Start: 1964 Screening for malignant neoplasm of colon [facility] Start: 1964 Yearly Adult Physical Yearly Adult Physical [facility] Actin smooth muscle IgG Ab [Units/volume] in Serum [facility] Alpha 1 antitrypsin [Mass/volume] in Serum or Plasma [facility] Alpha 1 antitrypsin phenotyping [Identifier] in Serum or Plasma by Immunofixation [facility] Ceruloplasmin [Mass/volume] in Serum or Plasma [facility] End: 08-19-2019 Cytopathology procedure, preparation of smear, genital source PAP SMEAR Lab Routine Well female exam with routine gynecological exam 1 Occurrences starting 08/19/2019 until 08/19/2019 [place] Comment on above: 1 Occurrences starting 08/19/2019 until 08/19/2019 End: 02-07-2022 Cytopathology procedure, preparation of smear, genital source PAP SMEAR Lab Routine Women's annual routine gynecological examination 1 Occurrences starting 02/07/2022 until 02/07/2022 [facility] Work Phone: Comment on above: 1 Occurrences starting 02/07/2022 until 02/07/2022 Glucose measurement estimated from glycated hemoglobin [facility] Hepatitis A virus Ab [Presence] in Serum by Immunoassay [facility] Hepatitis B core ant ibody measurement [facility] Hepatitis B virus khanna rface Ab [Presence] in Serum [facility] Hepatitis B virus khanna rface Ag [Presence] in Serum or Plasma by Immunoassay [facility] Hepatitis C virus Ig G Ab [Presence] in Serum or Plasma by Immunoassay [facility] Homogenous nuclear A b pattern [Titer] in Serum [facility] IgG [Mass/volume] in Serum or Plasma [facility] End: 06-18-2023 INITIATE PACU OXYGEN THERAPY PROTOCOL Initiate PACU Oxygen Therapy Protocol Respiratory Care Routine Continuous until discontinued starting 06/18/2023 [facility] Comment on above: Continuous until discontinued starting 0 06/18/2023 Lipoprotein a [Moles/volume] in Serum or Plasma [facility] Mitochondria M2 IgG Ab [Units/volume] in Serum [facility] Nuclear Ab [Titer] i n Serum [facility] Oxygen therapy [Mini mum Data Set] Initiate Oxygen Therapy Protocol Respiratory Care Routine As Needed until discontinued starting 06/18/2023 [facility] Comment on above: As Needed until discontinued starting Oxygen therapy [Mini mum Data Set] Initiate Oxygen Therapy Protocol Respiratory Care Routine As Needed until discontinued starting 06/18/2023 [facility] Comment on above: As Needed until discontinued starting Patient Education Hemorrhoids (DC) [facility] Work Phone: End: 06-18-2023 , urine POCT , urine POCT Point of Care Testing Routine One Time for 1 Occurrences starting 06/18/2023 until 06/18/2023 [facility] Comment on above: One Time for 1 Occurrences starting 06/01 until 06/18/2023 Surgical Pathology Surgical Path ology Lab Routine Post-menopausal bleeding Inclusion cyst Release Upon Ordering for 1 Occurrences starting 06/18/2023 [facility] Comment on above: Release Upon Ordering for 1 Occurrences starting 06/18/2023 [facility] Immunizations Immunization Date Immunization Notes Care Provider Sudhakar ponce 06-01-2024 influenza, unspecifi ed formulation JENNIFER MARTINO [facility] 06-16-2022 influenza, injectabl e, quadrivalent, preservative free Ashley M Hoy Work Phone: [facility] 250 DO Work Phone: 06-16-2022 zoster vaccine recombinant Ashley M Hoy Work Phone: [facility] 250 DO Work Phone: 08-01-2021 Pfizer-BioNTech COVI D-19 Vacc 30 MCG/0.3ML Intramuscular Suspension Ashley M Hoy Work Phone: [facility] 250 DO Work Phone: 06-30-2021 influenza virus vacc ine, unspecified formulation Ashley M Hoy Work Phone: [facility] 250 DO Work Phone: 06-03-2021 Influenza, injectabl e, Madin [place] Canine Kidney, preservative free, quadrivalent Ashley M Hoy Work Phone: [facility] 250 DO Work Phone: 01-29-2021 Pfizer-BioNTech COVI D-19 Vacc 30 MCG/0.3ML Intramuscular Suspension Ashley M Hoy Work Phone: [facility] 250 DO Work Phone: 01-08-2021 Pfizer-BioNTech COVI D-19 Vacc 30 MCG/0.3ML Intramuscular Suspension Ashley M Hoy Work Phone: [facility] 250 DO Work Phone: 2020 influenza, injectabl e, quadrivalent, preservative free Ashley M Hoy Work Phone: [facility] 250 DO Work Phone: 07-23-2018 influenza, injectabl e, quadrivalent, preservative free Ashley M Hoy Work Phone: [facility] 250 DO Work Phone: 07-26-2017 Influenza, injectabl e, Madin [place] Canine Kidney, preservative free, quadrivalent Ashley M Hoy Work Phone: [facility] [address] DO Work Phone: 05-09-2017 pneumococcal polysaccharide vaccine, 23 valent Ashley M Hoy Work Phone: [facility] 250 DO Work Phone: 07-03-2015 influenza, seasonal, injectable, preservative free Ashley M Hoy Work Phone: [facility] [address] DO Work Phone: 06-15-2014 influenza, seasonal, injectable Ashley M Hoy Work Phone: [facility] [address] DO Work Phone: 07-29-2009 novel influenza-H1N1 -09, preservative-free, injectable Ashley M Hoy Work Phone: [facility] [address] DO Work Phone: Payers Date Payer Category Payer Self-pay [id number] [phone] [id number] 2022 [facility] [id number] 2022 Unknown 2019 Unknown [employer] [place] xxxxxxxxxxxxxxx 2019-Present [address] [place] [address] xxxxxxxxxxxxxxx [id number] 1964 Unknown [id number] 2.16.840.1.051544.3.579.2.5 93 1964 Unknown [id number] 2.16.840.1.816630.3.579.2.5 93 1964 Unknown [id number] 2.16.840.1.192250.3.579.2.5 93 1964 Unknown [id number] 2.16.840.1.215059.3.579.2.5 93 1964 Unknown [id number] 2.16.840.1.736495.3.579.2.5 93 1964 Unknown [id number] 2.16.840.1.939467.3.579.2.1 73 1964 Unknown [id number] 2.16.840.1.248555.3.579.2.1 75 1964 Unknown [id number] 2.16.840.1.317464.3.579.2.1 259 1964 Unknown [id number] 2.16.840.1.051990.3.579.2.1 286 1964 Unknown [id number] 2.16.840.1.276033.3.579.2.1 286 1964 Unknown [id number] 2.16.840.1.415753.3.579.2.1 286 1964 Unknown [id number] 2.16.840.1.607977.3.579.2.1 286 1964 Unknown [id number] 2.16.840.1.235169.3.579.2.1 286 1964 Unknown [id number] 2.16.840.1.493645.3.579.2.1 286 1964 Unknown [id number] 2.16.840.1.805416.3.579.2.1 286 1964 Unknown [id number] 2.16.840.1.405596.3.579.2.7 27 1964 Unknown [id number] 2.16.840.1.568126.3.579.2.7 27 1964 Unknown [id number] 2.16.840.1.107806.3.579.2.7 27 1964 Unknown [id number] 2.16.840.1.826752.3.579.2.1 244 1964 Unknown [id number] 2.16.840.1.530420.3.579.2.1 244 1959 Unknown [id number] 1959 Unknown [id number] Unknown [id number] 2.16.840.1.943048.3.579.2.5 31 Social History Date Type Detail Facility Start: 08-19-2019 End: 08-14-2023 Tobacco smoking status NHIS Never smoker [place], [place] Start: 08-19-2019 End: 06-18-2023 Alcohol intake Ex-drinker (finding) [place], [place] Start: 1965 Sex Assigned At Not on file [place] Start: 06-18-2023 End: 09-05-2024 No alcohol use No alcohol use [facility] [address] DO Work Phone: Start: 08-19-2019 End: 08-14-2023 Tobacco use and exposure Smokeless tobacco non-user [facility] Work Phone: Start: 06-18-2023 End: 09-05-2024 Sex Assigned At Female [facility] Start: 1965 Sex Assigned At Female [facility] Patient Health Questionnaire 9 item (PHQ-9) total score [Reported] 0 SADI RODRIGUEZ [facility] Start: 08-14-2023 End: 09-05-2024 Alcohol intake Lifetime non-drinker (finding) [facility] Work Phone: Start: 08-04-2023 End: 09-05-2024 Exposure to SARS-CoV-2 (event) Not sure [facility] Start: 08-19-2024 Sex Female (finding) [facility] NEGATED: Highlighted row Denies Caffeine use Denies Caffeine use -[facility] [address] DO Work Phone: Medical Equipment Procedure [...] Functional Status N/A [facility] 04-10-2024 Functional Status N/A [facility] 06-02-2022 Functional Status N/A [facility] Clinical Notes 06-02-2022 to 09-05-2024 Celso [...] branch with long 3.5 x 38 mm Ray stent and [place] distal circumflex for in-stent restenosis with 3 x 18 mm Ray stent. LV function is preserved. 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 Patient is otherwise stable [...] Atherosclerosis of coronary artery bypass graft of [place] heart without angina pectoris 2. S/P PTCA [...] discussion and plan. documented in this encounter [facility] Work Phone: 09-05-2024 Instructions Jasmyne Salinas [...] be sent through Care Everywhere.Heart Healthy Diet (Luxembourgish)documented in this encounter [facility] Work Phone: 08-19-2024 Evaluation note Diagnosis Onset Date Resolution Atypical chest pain acute Novem rocky 2023 11:18pm [facility] Work Phone: 1(840) 781-284911-13-2024 History of Present illness Narrative* Celso Garibay DO - 08/13/2024 11:30 AM EST Subjective Jose Alberto Saleem is a 59 y.o. female Chief Complaint Annual Exam 59-year-old female returns for annual visit, she just got back from [facility] from vacation last evening and is doing [...] has a history of remote CABG, remote MT, remote PCI's before and after her CABG [...] Assessment/Plan 1. Atherosclerosis of coronary artery of [place] heart without angina pectoris, unspecified vessel or lesion type Follow Up In Cardiology 2. History of coronary artery bypass graft Follow Up In Cardiology 3. Essential hypertension, benign 4. Hyperlipidemia, unspecified hyperlipidemia type 5. Acute pancreatitis, unspecified complication status, unspecified pancreatitis type ([facility]) Scribe Attestation By signing my name below, [...] exam, discussion and plan. [facility] Work Phone: 1(253) 399-832611-13-2024 Instructions* Patient Instructions* Bettie Ugalde LPN - [...] Provided instructions on exercise. [facility] Work Phone: 1(705) 111-881111-05-2024 Hospital Discharge instructions Patient Education 08/05/2024 12:20:10 Kidney Stones, Nflg-ch-Yrcc Kidney Stones Kidney stones are rock-like masses [...] Follow these instructions at home: Medicines Take ihjg-tfv-knutcgg and prescription medicines only as told by [...] provider. Document Revised: 05/11/2023 Document Reviewed: 05/11/2023 [employer] Patient Education 2023 [employer]. Follow Up Care 06/06/2024 11:10:21 With:SALENA REDDY, JENNIFER López, URL Address: When:1 year [facility] 11-05-2024 NotePatient Education Urology Kidney Stones [...] these instructions at home: Medicines ??? Take ovaw-oqv-yiflnab and prescription medicines only as told by [...] Reviewed: 05/11/2023 Elsevier Patient Education ? 2023 [employer] 04-10-2024 Hospital Discharge instructions Patient Education 04/10/2024 16:08:23 Kidney Stones, Qpmo-yg-Yjsr Kidney Stones Kidney stones are rock-like masses [...] Follow these instructions at home: Medicines Take ewjh-mqo-uzobyiy and prescription medicines only as told by [...] provider. Document Revised: 05/22/2022 Document Reviewed: 05/22/2022 [employer] Patient Education 2022 [employer]. Follow Up Care 03/10/2024 08:31:33 With:JENNIFER MARTINO PA-C, URL Address: [address] [place] [address] When:3 months [facility] 07-11-2024 NotePatient Education Urology Kidney Stones [...] these instructions at home: Medicines ? Take dwvy-dwy-twfjzdf and prescription medicines only as told by [...] provider. Document Revised: 05/22/2022 Document Reviewed: 05/22/2022 [employer] Patient Education ? 2022 [employer] 02-27-2024 Note Attestation signed by Danielle [...] pectoris (CMS/HCC) Atherosclerosis of coronary artery of [place] heart without angina pectoris Cellulitis of right [...] Mother Gretta Hyperlipidemia Father Munoz Hyperlipidemia Brother Malott Heart attack Brother Luis Manuel SOCIAL HISTORY: [...] negative HEENT: negative RESPI (more content not included)...[facility] 08-14-2023 History of Present illness Narrative* Celso [...] has a history of remote CABG, remote MT, remote PCI's before and after her CABG [...] Assessment/Plan 1. Atherosclerosis of coronary artery of [place] heart without angina pectoris, unspecified vessel or lesion type 2. History of coronary artery bypass graft 3. Ischemic cardiomyopathy 4. Essential hypertension, benign documented in this [facility] Work Phone: 1(882) 889-260911-14-2023 Instructions* Patient Instructions* Ej Braswell MA - [...] time of your visit. documented in this [facility] Work Phone: 1(686) 616-289609-18-2023 Hospital Discharge instructions* Discharge Instructions* Lissa Ocasio [...] call if excessive. Call the office at [phone] ([place]) [phone] ([place]) for an appointment in 2 weeks. [facility] History of Present illness Narrative* Sejal Pro [...] pre-opvisit with Dr. Tripathi. [facility] Evaluation note* Encounter Date Diagnosis Assessment Notes Treatment Notes Treatment Clinical Notes Nov, Elevated liver function tests (ICD-10 - R94.5) [facility] Other 02-02-2023 Procedure [facility]02-01-2023 Procedure [facility]01-24-2023 Evaluation note* Encounter Date Diagnosis Assessment Notes Treatment Notes Treatment Clinical Notes Oct, Abdominal pain (ICD-10 - R10.9) Oct, Common bile duct dilatation (ICD-10 - K83.8) Oct, Elevated liver enzymes (ICD-10 - R74.8) Oct, Constipation (ICD-10 - K59.00) Colonoscopy Start Miralax daily after colonoscopy. Titration dosing discussed with patient. Oct, Colon cancer screening (ICD-10 - Z12.11) [facility] Other 01-04-2023 NotePROGRESS NOTE NOTE DATE: 10/04/2022 CHIEF COMPLAINT: Abdominal pain. HISTORY OF PRESENT ILLNESS: The patient is a 57-year-old female with a history of dyslipidemia and gastric bypass surgery, who has been having increasing abdominal pain and flank pain. She was seen yesterday at the [facility] for epigastric and upper abdominal [...] Prophylaxis: Lovenox. DISPOSITION: Home when medically stable.[id number] Discharge instructions Patient Education 06/02/2022 08:51:52 Kidney Stones, Hqtv-fp-Etzw Kidney Stones Kidney stones are rock-like masses [...] Follow these instructions at home: Medicines Take xrbo-why-kyonkyv and prescription medicines only as told by [...] 03/05/2009 Document Revised: 02/03/2020 Document Reviewed: 02/03/2020 Aunt Bertha Patient Education 2019 [employer]. Follow Up Care 05/27/2021 09:10:08 With:LORENA STRAUSS, Santiago Guzman, URL Address: [address] [place], [place] [id number]- When: Unknown [facility] evaluation + Plan note Future Appointments Appointment Date:06/01/2023 08:00:00 AM Scheduled Provider:Santiago CARRILLO MD Location:[facility] Appointment Type:URO Office Visit [facility] evaluation + Plan note Future Appointments Appointment Date:04/10/2024 03:00:00 PM Scheduled Provider:JENNIFER MARTINO PA-C Location:[facility] Appointment Type:URO Office Visit [facility] evaluation + Plan note Future Scheduled Tests Radiology* XR Abdomen 1 View 08/05/25 [facility] evaluation note* Diagnosis Women's annual routine gynecological examination documented in this encounter [facility] Work Phone: evaleqmocv noteNo assessment information available [facility] Work Phone: Evaluation noteNo InformationNort [employer] Other Evaluation note* Diagnosis Post-menopausal bleeding Postmenopausal bleeding Inclusion cyst Sebaceous cyst [facility] Diagnosis Atherosclerosis of coronary artery of [place] heart without angina pectoris, unspecified vessel or lesion type 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 Ischemic cardiomyopathy Other specified forms of chronic ischemic heart disease Essential hypertension, benign documented in this encounter [facility] Work Phone: Evaluation note* Diagnosis Atherosclerosis of coronary artery of [place] heart without angina pectoris, unspecified vessel or lesion type 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 Essential hypertension, benign Hyperlipidemia, unspecified hyperlipidemia type Acute pancreatitis, unspecified complication status, unspecified pancreatitis type ([facility]) documented in this encounter [facility] Work Phone: Evaluation note* Diagnosis Atherosclerosis of coronary artery bypass graft of [place] heart without angina pectoris S/P PTCA (percutaneous transluminal coronary angioplasty) Postsurgical percutaneous transluminal coronary angioplasty status 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 Ischemic cardiomyopathy Other specified forms of chronic ischemic heart disease Essential hypertension Unspecified essential hypertension Mixed hyperlipidemia BMI 30.0-30.9,adult Statin intolerance documented in this encounter [facility] Work Phone: History and physical note Author Evert Bruno [facility] November 01, 2022 12:40pm Note Date/Time November 01, 2022 1 2:40pm [facility] [address] [place] [address] Gastroenterology H&P Signed Patient: Jose Alberto Saleem MR#: [id number] : 1965 Acct:[id number] Age/Sex: 57 / F Adm Date: 3 Loc: Room: Type: [facility] Attending Dr: Evert Bruno MD Copies [...] signed by Evert Bruno MD> 11/01/22 1240 [facility] Work Phone: History and physical note Author Evert Bruno [facility] November 02, 2022 2:14pm Note Date/Time November 02, 2022 2 :14pm [facility] [address] [place] [address] Gastroenterology H&P Signed Patient: Jose Alberto Saleem MR#: [id number] : 1965 Acct:[id number] Age/Sex: 57 / F Adm Date: 3 Loc: Room: Type: [facility] Attending Dr: Evert Bruno MD Copies [...] the procedure. Evert Bruno M.D. 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[employer] Surgical History CABG remote history Surgical History gastric bypass 2017 Surgical History multiple kidney stones removed Surgical History appendectomy Surgical History cyst on ovarian removed Surgical History bilateral carpe tunnel surgery 2021 Surgical History cholecystectomy Hospitalization History see surgical hx [place] [employer] Other Hospital course Narrative No data available for this section [facility] Hospital Discharge instructions Additional Instructions DISCHARGE [...] NOT operate machinery such as power tools, [employer] mowers, [employer] blowers, sewing machines, etc. for 24 hours. [...] problems. -Follow up with PCP. -Office number [phone]. [facility] Work Phone: Hospital [...] problems. -Follow up with PCP. -Office number [phone]. [facility] Work Phone: Hospital Discharge instructions No data available for this section [facility] progress note No data available for this section [facility] reason for referral (narrative)* Consultation (Routine) - Authorized Specialty Diagnoses / Procedures Referred By Manfred flynn Referred To Contact Cardiology Diagnoses Atherosclerosis of coronary artery of [place] heart without angina pectoris, unspecified vessel or lesion type History of coronary artery bypass graft Procedures Follow Up In Cardiology Celso Garibay DO [address] [address] Celso Garibay DO [address] [place] [address], [address] [address] Referral ID Status Reason Start Date Expiration Date V isits Requested Visits Authorized [id number] Authorized 08/14/2023 08/13/[address] 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 * [place] [employer] is class I * Recommendations, [...] She has a history of prior inferior MT, prior PCI with subsequent three-vessel CABG and [...] She has a history of prior inferior MT, prior PCI with subsequent three-vessel CABG and [...] DATE CREATED AUTHOR AUTHOR'S ORGANIZ ATION 03/26/2018 [facility] DATE CREATED AUTHOR AUTHOR'S ORGANIZ ATION 08/02/2022 [facility] dical Specialist DATE CREATED AUTHOR AUTHOR'S ORGANIZ ATION 08/17/2022 [employer] DATE CREATED AUTHOR AUTHOR'S ORGANIZ ATION 10/17/2022 [facility] DATE CREATED AUTHOR AUTHOR'S ORGANIZ ATION 06/23/2023 [facility] DATE CREATED AUTHOR AUTHOR'S ORGANIZ ATION 07/16/2023 [facility] DATE CREATED AUTHOR AUTHOR'S ORGANIZ ATION 09/15/2023 [facility] dical Specialists [facility] DATE CREATED AUTHOR AUTHOR'S ORGANIZ ATION 01/19/2024 [facility] DATE CREATED AUTHOR AUTHOR'S ORGANIZ ATION 03/03/2024 [facility] DATE CREATED AUTHOR AUTHOR'S ORGANIZ ATION 03/07/2024 [facility] DATE CREATED AUTHOR AUTHOR'S ORGANIZ ATION 08/06/2024 [facility] DATE CREATED AUTHOR AUTHOR'S ORGANIZ ATION 09/13/2024 [facility] DATE CREATED AUTHOR AUTHOR'S ORGANIZ ATION 09/15/2024 [facility] Care Teams (unrecognized sec [...] Active Evert Bruno MD Attending Provider Active Crew Person Relationship Specialty Start Date End Date Ashley Grigsby MD [address] [place] [address] PCP - General Family Medicine 08/19/19 Crew Person Relationship Specialty Start Date End Date Ashley Grigsby MD [address] [place] [address] PCP - General Family Medicine 08/19/19 Crew Person Relationship Specialty Start Date End Date Ashley Grigsby MD [address] [place] [address] PCP - General 08/17/21 Crew Person Relationship Specialty Start Date End Date Ashley Grigsby MD [address] [place] [address] PCP - General 08/17/21 Crew Person Relationship Specialty Start Date End Date Ashley Grigsby MD [address] [place] [address] PCP - General 08/17/21 Anita Hammonds, brand marketing internVocational Adviser 08/22/24 REASON FOR VISIT (unrecogniz ed section and content) Specialty Diagnoses / Procedures Referred By Contfélix t Referred To Contact Diagnoses Post-menopausal bleeding Inclusion cyst Post-menopausal bleeding [N95.0] Inclusion cyst [L72.0] Procedures [place]Y HYSTEROSCOPY BX ENDOMETRIUM&/POLYPC W/WO D&C WY DESTRUCTION BENIGN LESIONS UP TO 14 DILATATION AND CURETTAGE HYSTEROSCOPY-REMOVAL OF INCLUSION CYST Gaby Phillips, DO [address] [place] [address] [facility] [address] [place] [address] Referral ID Status Reason Start Date Expiration Date Visits Re quested Visits Authorized [id number] 1 1 Reason Comments Annual Exam 1yr Specialty Diagnoses / Procedures Referred By Manfred flynn Referred To Contact Cardiology Diagnoses Atherosclerosis of coronary artery of [place] heart without angina pectoris, unspecified vessel or lesion type History of coronary artery bypass graft Procedures Follow Up In Cardiology [place] Celso Pam, [address] [facility], [address] [address] Phone: tel: fax: Celso Garibay, DO [address] [facility], [address] [address] Phone: tel: fax: Referral ID Status Reason Start Date Expiration Date V isits Requested Visits Authorized [id number] Authorized 08/14/2023 08/13/2024 1 1 Reason Comments Follow-up [facility] discharge 08/22 Ordered Prescriptions (unrec ognized section [...] (NoRateChange - Provider: Lynnette Walden APRN - SUPERVISOR DOCK)[phone] (Paused - Provider: OTONIEL Fragoso CRNA - [...] BE BASED ON THE PRIMARY CLINICAL RECORDS. [employer] [facility]. provides no warranty or guarantee of the accuracy or completeness of information in this document.
--- OUTSIDE RECORDS SUMMARY | 2024-10-02 07:20 | XMS_ITS | CCD ---
Author Organization [facility] Care Team Providers Care Packer Fuser Name Role Phone UNKNOWN, PROVIDER Unavailable Unavailable ASHLEY GRIGSBY Unavailable Unavailable UNKNOWN, PROVIDER Unavailable Unavailable ASHLEY GRIGSBY Unavailable Unavailable Ashley Grigsby Primary Care Provider Ashley Grigsby Unavailable Unavailable Unavailable Ashley Grigsby MD Primary Care Provider [phone] Unavailable Unavailable Ashley Grigsby Primary Care Physician [place], DR CELSO Orozco Admitting Unavailclaire GRAIBAY, DR CELSO Orozco Attending Unavailabl e SEB, [...] Unavailable MD Ashley Grigsby Primary Care Provider [phone] MD Evert Bruno Attending Provider [phone] Evert Bruno Unavailable MD Ashley Grigsby Primary Care Provider [phone] MD Evert Bruno Attending Provider Ashley Grigsby MD Primary Care Provider [phone] GABY PHILLIPS Admitting Unavail able GABY PHILLIPS Attending Unavail able SEB ASHLEY Tyree Primary Care Unavailable SEBASHLEY Tyree Primary Care Unavailable Ashley Grigsby MD Primary Care Provider [phone] ALINA JAVIER Attending Unavailable STEPHANIE BERGER Attending [...] Unavailab Ashley Ruiz MD Primary Care Provider [phone] Ari STRAUSS, Lynnette Guzman Emergency Provider [phone] Donis Arroyo DO Admit Provider Donis Arroyo DO Attending Provider [phone] Anita Hammonds RN Unavailable Unavailable CELSO GARIBAY [...] Allergy Other (See Comments), Shortness of breath [place], [place] (20 sources) Latex; Translations: [LATEX] Propensity to adverse reactions to drug Anaphylaxis, Shortness Of Breath, Anaphylaxis (disorder) [place], [place] (15 sources) Penicillins; Translations: [penicillins] Propensity to adverse reactions to drug Hives, Anaphylaxis (disorder) [place] (3 sources) rosuvastatin Drug Allergy 019 [place], [place] (20 sources) Sulfamethoxazole / Trimethoprim; Translations: [Bactrim TABS] Drug Allergy 019 [place], [place] (11 sources) natural latex rubber Allergy to substance (finding) Shortness of breath [facility] myhomemove 250 DO Work Phone: (11 sources) Penicillins; Translations: [Penicillins] Allergy to drug (finding) Rash [facility] PerpetuIrvin 250 DO Work Phone: (18 sources) rosuvastatin; Translations: [Crestor TABS] Drug Allergy 023 Elevated liver enzymes level (finding), Other [facility] (16 sources) Sulfonamides (Antibiotic); Translations: [Sulfa Drugs] Allergy to drug (finding) [facility] (13 sources) levoFLOXacin; Translations: [levofloxacin] Drug Allergy 017 Other (See Comments), Candidiasis (disorder) [facility] [employer] Phone: (4 sources) Phenazopyridine; Translations: [PHENAZOPYRIDINE HCL] Drug Allergy 006 [facility] Work Phone: (3 sources) Simvastatin; Translations: [SIMVASTATIN] Drug Allergy 006 [facility] Work Phone: (2 sources) Sulfonamides (Antibiotic) Propensity to adverse reactions to drug 022 Other (See Comments) [employer] (8 sources) Tobramycin; Translations: [tobramycin] Drug Allergy 023 Eruption of skin (disorder) [facility] (1 source) Baclofen Drug Allergy [facility] (1 source) Latex Drug allergy (disorder) [facility] (5 sources) levoFLOXacin; Translations: [Levaquin] Drug Allergy thrush [facility] (1 source) Penicillins Drug allergy (disorder) [facility] (1 source) rosuvastatin Drug Allergy [facility] (1 source) Sulfonamides (Antibiotic) Drug allergy (disorder) [facility] (10 sources) rosuvastatin; Translations: [ROSUVASTATIN] Drug Allergy 017 Gastrointestinal Upset [facility] (5 sources) Sulfamethoxazole; Translations: [sulfamethoxazole] Drug Allergy 023 Hives, Hives, ([place]) 08/08/2011 [facility] (7 sources) Trimethoprim; Translations: [TRIMETHOPRIM] Drug Allergy 023 Hives, Hives, ([place]) 08/08/2011 [facility] (6 sources) Fenofibrate; Translations: [FENOFIBRATE] Drug Allergy 009 ([place]) 08/08/2011 [facility] (3 sources) Penicillin Drug Allergy ([place]) 08/08/2011 [place] Other (6 sources) Substance with sulfonamide structure and antibacterial mechanism of action (substance) Drug allergy 023 Shortness of breath [place] Other (4 sources) Penicillins Propensity to adverse reactions to drug Hives, Rash [facility] (1 source) Tobramycin Drug Allergy [address] [facility] (3 sources) Fenofibrate; Translations: [FENOFIBRATE MICRONIZED] Drug Allergy 009 [facility] Rep[facility] (6 sources) Sulfonamides (Antibiotic); Translations: [SULFA (SULFONAMIDE ANTIBIOTICS)] Propensity to adverse reactions to drug (disorder) Unknown Reaction [facility] (1 source) fluvastatin; Translations: [FLUVASTATIN] Drug Allergy [facility] (1 source) natural latex rubber; Translations: [LATEX, NATURAL RUBBER] Propensity to adverse reactions to drug (disorder) [facility] (1 source) Phenazopyridine; Translations: [PHENAZOPYRIDINE] Drug Allergy [facility] (1 source) Baclofen Drug Allergy [facility] (1 source) Fenofibrate Drug Allergy [facility] (1 source) Latex Drug allergy (disorder) [facility] (1 source) levoFLOXacin Drug Allergy [facility] (1 source) Penicillins Drug allergy (disorder) [facility] Repository Medications Current Medications Medication Drug [...] Atherosclerosis of coronary artery bypass graft of [place] heart without angina pectoris , History of [...] Active Start: 11-01-2022 take 4 tablets by [facility] once daily Citalopram 10 mg tablet [...] Discontinued (Dose adjustment) take 2 tablets by [facility] once daily citalopram (CELEXA) 10 MG tablet Take 2 tablets by mouth daily 0 Active clopidogrel 75 mg oral tablet (2 sources) P2Y12 Platelet Inhibitor Start: 09-05-2024 End: 09-05-2025 take 1 tablet by mouth once daily clopidogrel (Plavix) 75 mg tablet Indications: Atherosclerosis of coronary artery bypass graft of [place] heart without angina pectoris , S/P PTCA [...] mouth two times weekly Vitamin D (Ergocalciferol) 64569 UNIT 1 capsule Orally TWICE a Week [...] 3 weeks, then 3x per week thereafter, [facility] #[id number], 160, cm, 04/10/24 15:13:00 EDT, Height/Length Dosing, [...] Start: 04-30-2020 fluticasone 0. 05 mg/inh Nasal [place] Refill(s) 0 Start Date: 04/30/20 Status: Ordered fluticasone 0.05 mg/inh Nasal [place] (3 sources) Start: 04-30-2020 fluticasone 0.05 mg/inh Nasal [place] Refill(s) 0 Start Date: 04/30/20 Status: Ordered [...] day(s), # 45 tab(s), Refills(s) 3, Pharmacy: [facility], 160, cm, 06/02/22 8:29:00 EDT, Height/Length [...] Daily, # 90 tab(s), Refills(s) 3, Pharmacy: [facility], 160, cm, 05/27/21 8:19:00 EDT, Height/Length [...] day(s), # 30 tab(s), Refills(s) 11, Pharmacy: [facility] #[id number], 160, cm, 04/10/24 15:13:00 EDT, Height/Length Dosing, [...] mouth 2 times a day. 0 Active Pztqakwqmtku-Bqp-Sxpi-Fa-Vit K (Bariatric Multivitamins) 45 mg iron- 800 mcg-120 mcg Capsule (4 sources) Start: 11-01-2022 take 1 capsule by mouth twice daily Xlduhkyqcqiv-Fnh-Ovqd-Fa-Vit K (Bariatric Multivitamins) 45 mg iron- 800 mcg-120 mcg Capsule Active 1 CAP PO Twice daily November 01, 2022 1:00am Start: 11-01-2022 take 1 capsule by [facility] twice daily Gpfymsctetce-Vkn-Eubv-Fa-Vit K (Bariatri c Multivitamins) 45 mg iron- [...] tablet Indications: Atherosclerosis of coronary artery of [place] heart without angina pectoris, unspecified vessel [...] April 21, 2018 11:01pm polyethylene glycol 3350 793913 mg / potassium chloride 2970 mg / sodium bicarbonate 6740 mg / sodium chloride 5860 mg / sodium sulfate 19618 mg powder for oral solution (3 sources) [...] day(s), # 180 cap(s), Refills(s) 3, Pharmacy: [facility], 160, cm, 05/27/21 8:19:00 EDT, Height/Length Dosing, 61, kg, 05/27/21 8:19:00 EDT, Weight Dosing Start Date: 03/14/22 Stop Date: 03/09/23 Status: Ordered Start: 04-17-2018 take 1 capsule by [facility] once daily tamsulosin (Flomax) 0.4 [...] 01, 2022 12:00am take 1 tablet by [facility] every twenty-four hours traMADol HCl 50 MG 1 tablet as needed Orally Once a day Active ubidecarenone 200 mg oral capsule (3 sources) take 1 capsule by [facility] every twenty-four hours Coenzyme Q-10 200 MG 1 capsule with a meal Orally Once a day for 30 day(s) Active vibegron 75 MG Oral Tablet [Gemtesa] (1 source) Start: 04-10-2024 End: 04-05-2025 take 1 tablet by mouth once daily Gemtesa 75 mg oral tablet 75 mg = 1 tab(s), Oral, Daily, X 30 day(s), # 30 tab(s), Refills(s) 11, Pharmacy: [facility] #[id number], 160, cm, 04/10/24 15:13:00 EDT, Height/Length Dosing, [...] a day for 30 day(s) Active vitamins A,C,P-gcng-paatlv (1 source) Start: 08-19-2024 vitamins A,C,K-ysmx-lfbyht Active PO August 19, 2024 12:00am Zyrtec [...] Start: 04-17-2018 take 2 tablets by mo [facility] every four hours as needed for pain Oxycodone-Acetaminophen (Percocet) 5-325 mg tablet Active 2 TAB PO Q4H as needed for pain April 17, 2018 ascorbic acid 226 mg / beta carotene 54777 unt / cuprous oxide 0.8 mg / [...] / neomycin 3.5 mg/ml / polymyxin b 70367 unt/ml ophthalmic suspension (3 sources) Aminoglycoside Antibacterial, Polymyxin-class Antibacterial, Corticosteroid Start: 06-13-2021 take 2 drop(s) into the eye(s) four times daily Neomycin-Polymyxin- HC 3.5-27376-1 Ophthalmic Suspension instill 2 drops INTO AFFECTED [...] sources) Coronary atherosclerosis; Translations: [Coronary atherosclerosis of [place] coronary artery] Onset: 2 Chronic Coronary [...] senior living (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; 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: [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] Onset: 3 Episodic Other aftercare (1 source) Other snf (current) drug therapy; Translations: [OTH SHELTER CURRENT DRUG THERAPY] Onset: 3 Episodic Other [...] Unclassified (1 source) Athscl heart disease of [place] coronary artery w/o ang pctrs / [...] lead ECGon 08-22-2024 ECG 12 lead ECG [facility] [address] [place] [id number] Electrocardiograph Report Signed Patient: Jose Alberto Saleem MR#: [id number] 571 : 1965 Acct:[id number] Age/Sex: 59 / F ADM Date: 08/20/24 Loc: Room: [address] [place] [address] Type: DIS IN Attending Dr: Kaiser Quijano [...] abnormality Abnormal ECG Confirmed by Bella Stein ([id number]) on 08/22/2024 11:33:07 PM Referred By: Bella Stein Electronically Signed By: Bella Stein Transcribed By: MUS Signed By Bella Stein MD 4 2333 Normal [facility] Troponin I High Sensitivityo n 08-22-2024 Troponin I High Sensitivity 1211.6 pg/mL Off scale high 0.0-15.0 [facility] Comment on above: Result Comment: Crit ical Result : Called to and read back by: ROB MCDONALD at: 08/22/2024 06:38:37 by:RAMONA PERFORMED BY: [place] [address] PATHOLOGIST COUTURE DRESSMAKER JANA OLMEDO M.D. Performed By: #### H S TROP ####[facility] [id number] [place] [id number] [facility] Blood Urea Nitrogenon 2023 Urea nitrogen [Mass/Vol] 14 mg/dL Normal 7-25 [facility] Comment on above: Performed By: #### C REAT, BUN, PP, CBC, LYTES ####[facility] [place] [id number] [facility] Coagulation Profileon 2023 aPTT Coag (Bld) [Time] 35.9 s Normal 25.1-36.5 [facility] Comment on above: Result Comment: A he matocrit value greater than 55% may lead to inaccurate results in coagulation testing. Patients having hematocrit values >55% require a special collection tube for coagulation studies. Please contact the laboratory at [phone] for redraw instructions. PERFORMED BY: [address] RADMAESReneFawad [place] [id number] PATHOLOGIST COUTURE DRESSMAKER JANA OLMEDO M.D. Performed By: #### C REAT, BUN, PP, CBC, LYTES ####[place] [address] [place] [id number] [facility] INR Coag (PPP) [Relative time] 1.1 {INR} Normal [facility] Comment on above: Result Comment: [...] #### C REAT, BUN, PP, CBC, LYTES ####[place] [address] [place] [address] [facility] PT Coag (PPP) [Time] 12.2 s Normal 9.0-12.9 [facility] Comment on above: Result Comment: A he matocrit value greater than 55% may lead to inaccurate results in coagulation testing. Patients having hematocrit values >55% require a special collection tube for coagulation studies. Please contact the laboratory at [phone] for redraw instructions. Performed By: #### C REAT, BUN, PP, CBC, LYTES ####[address] Complete Blood Count Auto Di ffon 08-21-2024 Basophils (Bld) [#/Vol] 0.0 10*3/uL Normal 0.0-0.2 [facility] Comment on above: Result Comment: PERF ORMED BY: [facility] [address] [place] [address] PATHOLOGIST COUTURE DRESSMAKER JANA OLMEDO M.D. Performed By: #### C REAT, BUN, PP, CBC, LYTES ####[address] Basophils/100 WBC (Bld) 0.3 % Normal . [facility] Comment on above: Performed By: #### C REAT, BUN, PP, CBC, LYTES ####[address] Eosinophils (Bld) [#/Vol] 0.2 10*3/uL Normal 0.0-0.45 [facility] Comment on above: Performed By: #### C REAT, BUN, PP, CBC, LYTES ####[address] Eosinophils/100 WBC (Bld) 3.9 % Normal . [facility] Comment on above: Performed By: #### C REAT, BUN, PP, CBC, LYTES ####[address] Erythrocyte distribution width (RBC) [Ratio] 12.7 % Normal 11.9-15.3 [facility] Comment on above: Performed By: #### C REAT, BUN, PP, CBC, LYTES ####[address] Hematocrit (Bld) [Volume fraction] 42.5 % Normal 34.0-46.4 [facility] Comment on above: Performed By: #### C REAT, BUN, PP, CBC, LYTES ####[address] [place] [address] [place] Hemoglobin (Bld) [Mass/Vol] 14.6 g/dL Normal 11.8-15.4 [facility] Comment on above: Performed By: #### C REAT, BUN, PP, CBC, LYTES ####[address] Lymphocytes (Bld) [#/Vol] 1.7 10*3/uL Normal 1.00-4.8 [facility] Comment on above: Performed By: #### C REAT, BUN, PP, CBC, LYTES ####[address] Lymphocytes/100 WBC (Bld) 35.0 % Normal . [facility] Comment on above: Performed By: #### C REAT, BUN, PP, CBC, LYTES ####[address] MCH (RBC) [Entitic mass] 30.8 pg Normal 24.7-34.3 [facility] Comment on above: Performed By: #### C REAT, BUN, PP, CBC, LYTES ####[address] MCV (RBC) [Entitic vol] 89.8 fL Normal 80-100 [facility] Comment on above: Performed By: #### C REAT, BUN, PP, CBC, LYTES ####[address] Mean Corpuscular HGB Conc 34.3 g/dL Normal 32.0-35.0 [facility] Comment on above: Performed By: #### C REAT, BUN, PP, CBC, LYTES ####[address] Monocytes (Bld) [#/Vol] 0.5 10*3/uL Normal 0.0-0.8 [facility] Comment on above: Performed By: #### C REAT, BUN, PP, CBC, LYTES ####[address] [place] [address] [place] Monocytes/100 WBC (Bld) 10.9 % Normal . [facility] Comment on above: Performed By: #### C REAT, BUN, PP, CBC, LYTES ####[address] Neutrophils (Bld) [#/Vol] 2.5 10*3/uL Normal 1.8-7.7 The [facility] Comment on above: Performed By: #### C REAT, BUN, PP, CBC, LYTES ####[address] Neutrophils/100 WBC (Bld) 49.9 % Normal . [facility] Comment on above: Performed By: #### C REAT, BUN, PP, CBC, LYTES ####[address] NRBC% 0.1 /100{WBC} Normal 0-0.5 The [facility] Comment on above: Performed By: #### C REAT, BUN, PP, CBC, LYTES ####[address] Platelet mean volume (Bld) [Entitic vol] 7.7 fL Normal 6.3-10.7 The [facility] Comment on above: Performed By: #### C REAT, BUN, PP, CBC, LYTES ####[address] Platelets (Bld) [#/Vol] 172 10*3/uL Normal 150-450 [facility] Comment on above: Performed By: #### C REAT, BUN, PP, CBC, LYTES ####[address] RBC (Bld) [#/Vol] 4.73 10*6/uL Normal 3.60-5.00 The [facility] Comment on above: Performed By: #### C REAT, BUN, PP, CBC, LYTES ####[address] WBC (Bld) [#/Vol] 4.9 10*3/uL Normal 3.8-11.6 The [facility] Comment on above: Performed By: #### C REAT, BUN, PP, CBC, LYTES ####[place] [address] [place] [id number] [facility] Creatinineon 08-21-2024 Creatinine [Mass/Vol] 0.61 mg/dL Normal 0.60-1.20 The [facility] Comment on above: Performed By: #### C REAT, BUN, PP, CBC, LYTES ####[place] [address] [place] [id number] [facility] Creatinine Clr Calc Pharmacy 97.73 Normal The [facility] Comment on above: Result Comment: PERF ORMED BY: [place] [address] PATHOLOGIST COUTURE DRESSMAKER JANA OLMEDO M.D. Performed By: #### C REAT, BUN, PP, CBC, LYTES ####[place] [address] GFR/1.73 sq M.predicted MDRD (S/P/Bld) [Vol rate/Area] mL/min/{1.73_m2} Normal The [facility] Comment on above: Performed By: #### C REAT, BUN, PP, CBC, LYTES ####[place] [id number] [facility] ECG 12 lead ECGon 08-21-2024 ECG 12 lead ECG [facility] [place] [address] Electrocardiograph Report Signed Patient: Jose Alberto Saleem MR#: [id number] 571 : 1965 Acct:[id number] Age/Sex: 59 / F ADM Date: 08/20/24 Loc: 4 Room: [address] [place] [address] Type: DIS IN Attending Dr: Kaiser Quijano [...] abnormality Abnormal ECG Confirmed by Bella Stein ([id number]) on 08/22/2024 11:33:52 PM Referred By: Bella Stein Electronically Signed By: Bella Stein Transcribed By: MUS Signed By Bella Stein MD 4 2333 Normal The [facility] Electrolyteson 08-21-2024 Anion gap [Moles/Vol] 11.0 mmol/L Normal 6.0-15.0 Th e [facility] Comment on above: Performed By: #### C REAT, BUN, PP, CBC, LYTES ####[address] Chloride [Moles/Vol] 105 mmol/L Normal 98-107 The [facility] Comment on above: Performed By: #### C REAT, BUN, PP, CBC, LYTES ####[address] CO2 [Moles/Vol] 27.9 mmol/L Normal 21.0-31.0 The [facility] Comment on above: Performed By: #### C REAT, BUN, PP, CBC, LYTES ####[place] [id number] [facility] Potassium [Moles/Vol] 3.9 mmol/L Normal 3.5-5.1 The [facility] Physician [facility] Comment on above: Performed By: #### C REAT, BUN, PP, CBC, LYTES ####[place] [id number] [facility] Sodium [Moles/Vol] 140 mmol/L Normal 136-145 The [facility] Comment on above: Performed By: #### C REAT, BUN, PP, CBC, LYTES ####[place] [id number] [facility] NM lia perf SPECT rest stron 08-20-2024 NM lia perf SPECT rest str [facility] Main [place] [id number] Nuclear Medicine Report Signed Patient: Jose Alberto Saleem MR#: [id number] 571 : 1965 Acct:[id number] Age/Sex: 59 / F ADM Date: 08/18/24 Loc: Room: [address] [place] [address] Type: ADM INOo Attending Dr: Chucky Dunn [...] Bella Stein M.D.08/20/2024 3:56 PM Dictation Location: [place] [address] Transcribed By: [facility] 08/20/24 1556 Dictated By: Bella Stein MD 08/20/24 1552 Signed By: 08/20/24 155 Normal The [facility] A1C with Estimated Average G ajay 08-19-2024 Glucose [Mass/Vol] 117 mg/dL Normal The [facility] Comment on above: Result Comment: PERF ORMED BY: [place] [address] PATHOLOGIST COUTURE DRESSMAKER JANA OLMEDO M.D. Performed By: #### A 1C [facility] eA, HS TROP ####[facility] [id number] [place] [address] [facility] HbA1c (Bld) [Mass fraction] 5.7 % High 4.3-5.6 The [facility] Comment on above: Result Comment: Incr eased risk for diabetes: 5.7 - 6.4 diabetes: >6.4 glycemic control for adults with diabetes: <7.0 Performed By: #### A 1C [facility] eA, HS TROP ####[facility] [id number] [place] [address] [facility] ECG 12 lead ECGon 08-19-2024 ECG 12 lead ECG [facility] [place] [address] Electrocardiograph Report Signed Patient: Jose Alberto Saleem MR#: [id number] 571 : 1965 Acct:[id number] Age/Sex: 59 / F ADM Date: 08/18/24 Loc: Room: [address] [place] [address] Type: ADM INOo Attending Dr: Chucky Dunn MD Ordering Provider: Chucky Dnun MD Date of Service: 08/19/24 ECG/ECG 12 [...] abnormality Abnormal ECG Confirmed by Bella Stein ([id number]) on 08/21/2024 12:00:39 AM Referred By: Bella Stein Electronically Signed By: Bella Stein Transcribed By: MUS Signed By Bella Stein MD 4 0000 Normal The [facility] ECG 12 lead ECG [facility] [place] [address] Electrocardiograph Report Signed Patient: Jose Alberto Saleem MR#: [id number] 571 : 1965 Acct:[id number] Age/Sex: 59 / F ADM Date: 08/18/24 Loc: 3T Room: [address] [place] [address] Type: ADM INOo Attending Dr: Chucky Dunn [...] rhythm Leftward axis Confirmed by Torsten Monreal ([id number]) on 08/20/2024 11:52:24 PM Referred By: Bella Stein Electronically Signed By: Torsten Monreal Transcribed By: MUS Signed By Torsten Monreal MD 08/20/24 2352 Normal The [facility] Troponin I High Sensitivityo n 08-19-2024 Troponin I High Sensitivity 4.6 pg/mL Normal 0.0-15.0 The [facility] Comment on above: Result Comment: PERF ORMED BY: [place] [address] PATHOLOGIST COUTURE DRESSMAKER JANA OLMEDO M.D. Performed By: #### A 1C [facility], TROP ####[facility] [id number] X-ray reportOrdered By: Anna Wick on 08-19-2024 Study report [facility] [place] [address] [place] [address] XRay Report Signed Patient: Jose Alberto Saleem MR#: [id number] : 1965 Acct:[id number] Age/Sex: 59 / F ADM Date: 4 Loc: 3T Room: [address] [place] [address] Type: ADM INOo Attending Dr: Donis Arroyo [...] Thelma Wick M.D.08/19/2024 12:10 AM Dictation Location: [place] [address] Transcribed By: [facility] 08/19/249 Dictated By: Thelma Wick MD 08/18/242210 Signed By: 08/19/249 [facility] Work Phone: Alanine aminotransferase [En zymatic activity/volume] in Serum or PlasmaOrdered By: Lynnette Chapman on 08-18-2024 ALT [Catalytic activity/Vol] Alanine aminotransferase [Enzymatic activity/volume] in Serum or Plasma 7-52 [facility] Albumin [Mass/volume] in Ser um or Plasma by Bromocresol green (BCG) dye binding methoOrdered By: Lynnette Chapman on 08-18-2024 Albumin BCG dye [Mass/Vol] Albumin [Mass/volume] in Serum or Plasma by Bromocresol green (BCG) dye binding metho 3.5-5.7 [facility] Alkaline phosphatase [Enzyma tic activity/volume] in Serum or PlasmaOrdered By: Lynnette Chapman on 08-18-2024 ALP [Catalytic activity/Vol] Alkaline phosphatase [Enzymatic activity/volume] in Serum or Plasma 34-104 [facility] Aspartate aminotransferase [ Enzymatic activity/volume] in Serum or PlasmaOrdered By: Lynnette Chapman on 08-18-2024 AST [Catalytic activity/Vol] Aspartate aminotransferase [Enzymatic activity/volume] in Serum or Plasma 13-39 [facility] B-Type Natriuretic Peptideon 08-18-2024 Natriuretic peptide B (Bld) [Mass/Vol] 31.0 pg/mL Normal 5-100 [facility] Comment on above: Result Comment: PERF ORMED BY: [place] [address] PATHOLOGIST COUTURE DRESSMAKER JANA OLMEDO M.D. Performed By: #### H S TROP, LIPASE, PT, BMP, HEPATIC, CK, CBC, BNP ####[address] Basic Metabolic Panelon 08-01 Anion gap [Moles/Vol] 10.7 mmol/L Normal 6.0-15.0 e [facility] Comment on above: Performed By: #### H S TROP, LIPASE, PT, BMP, HEPATIC, CK, CBC, BNP #### [address] Performed By: #### H S TROP, LIPASE, PT, BMP, HEPATIC, CK, CBC, BNP ####[address] Calcium [Mass/Vol] 10.1 mg/dL Normal 8.6-10.3 The [facility] Comment on above: Performed By: #### H S TROP, LIPASE, PT, BMP, HEPATIC, CK, CBC, BNP #### [address] Performed By: #### H S TROP, LIPASE, PT, BMP, HEPATIC, CK, CBC, BNP ####[address] Chloride [Moles/Vol] 102 mmol/L Normal 98-107 [facility] Comment on above: Performed By: #### H S TROP, LIPASE, PT, BMP, HEPATIC, CK, CBC, BNP #### [address] Performed By: #### H S TROP, LIPASE, PT, BMP, HEPATIC, CK, CBC, BNP ####[address] CO2 [Moles/Vol] 28.4 mmol/L Normal 21.0-31.0 The [facility] Comment on above: Performed By: #### H S TROP, LIPASE, PT, BMP, HEPATIC, CK, CBC, BNP #### [address] Performed By: #### H S TROP, LIPASE, PT, BMP, HEPATIC, CK, CBC, BNP ####[address] Creatinine [Mass/Vol] 0.62 mg/dL Normal 0.60-1.20 The [facility] Comment on above: Performed By: #### H S TROP, LIPASE, PT, BMP, HEPATIC, CK, CBC, BNP #### [address] Performed By: #### H S TROP, LIPASE, PT, BMP, HEPATIC, CK, CBC, BNP ####[address] Creatinine Clr Calc Pharmacy 95.72 Normal [facility] Comment on above: Result Comment: PERF ORMED BY: [place] [address] PATHOLOGIST COUTURE DRESSMAKER JANA OLMEDO M.D. Performed By: #### H S TROP, LIPASE, PT, BMP, HEPATIC, CK, CBC, BNP #### [address] Performed By: #### H S TROP, LIPASE, PT, BMP, HEPATIC, CK, CBC, BNP ####[address] GFR/1.73 sq M.predicted MDRD (S/P/Bld) [Vol rate/Area] mL/min/{1.73_m2} Normal [facility] Comment on above: Performed By: #### H S TROP, LIPASE, PT, BMP, HEPATIC, CK, CBC, BNP #### [address] Performed By: #### H S TROP, LIPASE, PT, BMP, HEPATIC, CK, CBC, BNP ####[address] Glucose [Mass/Vol] 94 mg/dL Normal 70-100 The [facility] Comment on above: Result Comment: [facility] Glucose Reference Range is dependent on time and content of last meal. Glucose of more than 200 mg/dL in a nonstressed, ambulatory subject supports the diagnosis of Diabetes Mellitus. ADA recommended reference range Performed By: #### H S TROP, LIPASE, PT, BMP, HEPATIC, CK, CBC, BNP #### [address] Performed By: #### H S TROP, LIPASE, PT, BMP, HEPATIC, CK, CBC, BNP ####[address] Potassium [Moles/Vol] 4.1 mmol/L Normal 3.5-5.1 [facility] Comment on above: Performed By: #### H S TROP, LIPASE, PT, BMP, HEPATIC, CK, CBC, BNP #### [address] Performed By: #### H S TROP, LIPASE, PT, BMP, HEPATIC, CK, CBC, BNP ####[address] Sodium [Moles/Vol] 137 mmol/L Normal 136-145 [facility] Comment on above: Performed By: #### H S TROP, LIPASE, PT, BMP, HEPATIC, CK, CBC, BNP #### [address] Performed By: #### H S TROP, LIPASE, PT, BMP, HEPATIC, CK, CBC, BNP ####[address] Urea nitrogen [Mass/Vol] 22 mg/dL Normal 7-25 [facility] Comment on above: Performed By: #### H S TROP, LIPASE, PT, BMP, HEPATIC, CK, CBC, BNP #### [address] Performed By: #### H S TROP, LIPASE, PT, BMP, HEPATIC, CK, CBC, BNP ####[facility] [id number] [place] [address] [facility] Basophils Auto (Bld) [#/Vol] Ordered By: Lynnette Chapman on 08-18-2024 Basophils (Bld) [#/Vol] Automated basophil count 0.0-0.2 [facility] Basophils/100 WBC Auto (Bld) Ordered By: Lynnette Chapman on 08-18-2024 Basophils/100 WBC (Bld) Automated basophil % . [facility] Bilirubin.direct [Mass/volum e] in Serum or PlasmaOrdered By: Lynnette Chapman on 08-18-2024 Bilirubin.direct [Mass/Vol] Bilirubin.direct [Mass/volume] in Serum or Plasma 0.03-0.18 [facility] Bilirubin.total [Mass/volume ] in Serum or PlasmaOrdered By: Lynnette Chapman on 08-18-2024 Bilirubin [Mass/Vol] Bilirubin.total [Mass/volume] in Serum or Plasma 0.3-1.0 [facility] Calcium [Mass/volume] in Ser um or PlasmaOrdered By: Lynnette Chapman on 08-18-2024 Calcium [Mass/Vol] Calcium [Mass/volume ] in Serum or Plasma 8.6-10.3 [facility] Carbon dioxide, total [Moles /volume] in Serum or PlasmaOrdered By: Lynnette Chapman on 08-18-2024 CO2 [Moles/Vol] Carbon dioxide, tota l [Moles/volume] in Serum or Plasma 21.0-31.0 [facility] Chloride [Moles/volume] in S nina or PlasmaOrdered By: Lynnette Chapman on 08-18-2024 Chloride [Moles/Vol] Chloride [Moles/vol ume] in Serum or Plasma 98-107 [facility] Complete Blood Count Auto Di ffon 08-18-2024 Basophils (Bld) [#/Vol] 0.0 10*3/uL Normal 0.0-0.2 [facility] Comment on above: Result Comment: PERF ORMED BY: [facility] [address] [place] [address] PATHOLOGIST COUTURE DRESSMAKER JANA OLMEDO M.D. Performed By: #### H S TROP, LIPASE, PT, BMP, HEPATIC, CK, CBC, BNP #### [address] Basophils/100 WBC (Bld) 0.7 % Normal . [facility] Comment on above: Performed By: #### H S TROP, LIPASE, PT, BMP, HEPATIC, CK, CBC, BNP #### [address] Eosinophils (Bld) [#/Vol] 0.2 10*3/uL Normal 0.0-0.45 [facility] Comment on above: Performed By: #### H S TROP, LIPASE, PT, BMP, HEPATIC, CK, CBC, BNP #### [address] Eosinophils/100 WBC (Bld) 3.5 % Normal . [facility] Comment on above: Performed By: #### H S TROP, LIPASE, PT, BMP, HEPATIC, CK, CBC, BNP #### [address] Erythrocyte distribution width (RBC) [Ratio] 12.6 % Normal 11.9-15.3 [facility] Comment on above: Performed By: #### H S TROP, LIPASE, PT, BMP, HEPATIC, CK, CBC, BNP #### [address] Hematocrit (Bld) [Volume fraction] 43.7 % Normal 34.0-46.4 [facility] Comment on above: Performed By: #### H S TROP, LIPASE, PT, BMP, HEPATIC, CK, CBC, BNP #### [address] Hemoglobin (Bld) [Mass/Vol] 15.1 g/dL Normal 11.8-15.4 [facility] Comment on above: Performed By: #### H S TROP, LIPASE, PT, BMP, HEPATIC, CK, CBC, BNP #### [address] Lymphocytes (Bld) [#/Vol] 2.2 10*3/uL Normal 1.00-4.8 [facility] Comment on above: Performed By: #### H S TROP, LIPASE, PT, BMP, HEPATIC, CK, CBC, BNP #### [address] Lymphocytes/100 WBC (Bld) 36.5 % Normal . [facility] Comment on above: Performed By: #### H S TROP, LIPASE, PT, BMP, HEPATIC, CK, CBC, BNP #### [address] MCH (RBC) [Entitic mass] 30.7 pg Normal 24.7-34.3 [facility] Comment on above: Performed By: #### H S TROP, LIPASE, PT, BMP, HEPATIC, CK, CBC, BNP #### [address] MCV (RBC) [Entitic vol] 88.8 fL Normal 80-100 [facility] Comment on above: Performed By: #### H S TROP, LIPASE, PT, BMP, HEPATIC, CK, CBC, BNP #### [address] Mean Corpuscular HGB Conc 34.5 g/dL Normal 32.0-35.0 [facility] Comment on above: Performed By: #### H S TROP, LIPASE, PT, BMP, HEPATIC, CK, CBC, BNP #### [address] Monocytes (Bld) [#/Vol] 0.6 10*3/uL Normal 0.0-0.8 [facility] Comment on above: Performed By: #### H S TROP, LIPASE, PT, BMP, HEPATIC, CK, CBC, BNP #### [address] Monocytes/100 WBC (Bld) 16.97 % Normal 0.00-20.00 [facility] Comment on above: Performed By: #### H S TROP, LIPASE, PT, BMP, HEPATIC, CK, CBC, BNP #### [address] Monocytes/100 WBC (Bld) 10.5 % Normal . [facility] Comment on above: Performed By: #### H S TROP, LIPASE, PT, BMP, HEPATIC, CK, CBC, BNP #### [address] Neutrophils (Bld) [#/Vol] 3.0 10*3/uL Normal 1.8-7.7 [facility] Comment on above: Performed By: #### H S TROP, LIPASE, PT, BMP, HEPATIC, CK, CBC, BNP #### [address] Neutrophils/100 WBC (Bld) 48.8 % Normal . [facility] Comment on above: Performed By: #### H S TROP, LIPASE, PT, BMP, HEPATIC, CK, CBC, BNP #### [address] NRBC% 0.1 /100{WBC} Normal 0-0.5 The [facility] Comment on above: Performed By: #### H S TROP, LIPASE, PT, BMP, HEPATIC, CK, CBC, BNP #### [address] Platelet mean volume (Bld) [Entitic vol] 7.9 fL Normal 6.3-10.7 The [facility] Comment on above: Performed By: #### H S TROP, LIPASE, PT, BMP, HEPATIC, CK, CBC, BNP #### [address] Platelets (Bld) [#/Vol] 204 10*3/uL Normal 150-450 [facility] Comment on above: Performed By: #### H S TROP, LIPASE, PT, BMP, HEPATIC, CK, CBC, BNP #### [address] RBC (Bld) [#/Vol] 4.92 10*6/uL Normal 3.60-5.00 The [facility] Comment on above: Performed By: #### H S TROP, LIPASE, PT, BMP, HEPATIC, CK, CBC, BNP #### [facility] [address] WBC (Bld) [#/Vol] 6.1 10*3/uL Normal 3.8-11.6 The [facility] Comment on above: Performed By: #### H S TROP, LIPASE, PT, BMP, HEPATIC, CK, CBC, BNP #### [facility] [address] Creatine Kinaseon 08-18-2024 CK [Catalytic activity/Vol] 53 U/L Normal 30-223 [facility] Comment on above: Performed By: #### H S TROP, LIPASE, PT, BMP, HEPATIC, CK, CBC, BNP ####[facility] [id number] Creatine kinase [Enzymatic a ctivity/volume] in Serum or PlasmaOrdered By: Lynnette Chapman on 08-18-2024 CK [Catalytic activity/Vol] Creatine kinase [Enzymatic activity/volume] in Serum or Plasma 30-223 [facility] Creatinine [Mass/volume] in Serum or PlasmaOrdered By: Lynnette Chapman on 08-18-2024 Creatinine [Mass/Vol] Creatinine [Mass/v olume] in Serum or Plasma 0.60-1.20 [facility] ECG 12 lead ECGon 08-18-2024 ECG 12 lead ECG [facility] [address] [place] [address] Electrocardiograph Report Signed Patient: Jose Alberto Saleem MR#: [id number] : 1965 Acct:[id number] Age/Sex: 59 / F ADM Date: 08/18/24 Loc: ER Room: Type: [facility] ER Attending Dr: Ordering Provider: Lynnette Chapman [...] wave abnormality Confirmed by Lynnette Chapman MD ([id number]) on 08/18/2024 11:22:40 PM Referred By: Electronically Signed By: Lynnette Chapman MD Transcribed By: MUS Signed By Lynnette Chapman MD 08/01 05/24 2322 Normal [facility] Eosinophils Auto (Bld) [#/Vo l]Ordered By: Lynnette Chapman on 08-18-2024 Eosinophils (Bld) [#/Vol] Automated eosinophil count 0.0-0.45 [facility] Eosinophils/100 WBC Auto (Bl d)Ordered By: Lynnette Chapman on 08-18-2024 Eosinophils/100 WBC (Bld) Automated eosinophil % . [facility] Erythrocyte distribution wid th Auto (RBC) [Ratio]Ordered By: Lynnette Chapman on 08-18-2024 Erythrocyte distribution width (RBC) [Ratio] Erythrocyte distribution width [Ratio] by Automated count 11.9-15.3 [facility] Globulin Calc (S) [Mass/Vol] Ordered By: Lynnette Chapman on 08-18-2024 Globulin (S) [Mass/Vol] Serum globulin measurement by calculation (mass/volume) [facility] Glucose [Mass/volume] in Ser um or PlasmaOrdered By: Lynnette Chapman on 08-18-2024 Glucose [Mass/Vol] Glucose [Mass/volume ] in Serum or Plasma 70-100 [facility] Comment on above: ADA recommended refe rence rangeRandom Glucose Reference Range is dependent on time and content of last meal. Glucose of more than 200 mg/dL in a nonstressed, ambulatory subject supports the diagnosis of Diabetes Mellitus. Hematocrit Auto (Bld) [Volum e fraction]Ordered By: Lynnette Chapman on 08-18-2024 Hematocrit (Bld) [Volume fraction] Hematocrit [Volume Fraction] of Blood by Automated count 34.0-46.4 [facility] Hemoglobin [Mass/volume] in BloodOrdered By: Lynnette Chapman on 08-18-2024 Hemoglobin (Bld) [Mass/Vol] Hemoglobin [Mass/volume] in Blood 11.8-15.4 [facility] Hepatic Panelon 08-18-2024 Albumin [Mass/Vol] 4.3 g/dL Normal 3.5-5.7 The [facility] Comment on above: Performed By: #### H S TROP, LIPASE, PT, BMP, HEPATIC, CK, CBC, BNP ####[address] Albumin/Globulin [Mass ratio] 1.7 {ratio} Normal [facility] Comment on above: Performed By: #### H S TROP, LIPASE, PT, BMP, HEPATIC, CK, CBC, BNP ####[address] ALP [Catalytic activity/Vol] 89 U/L Normal 34-104 [facility] Comment on above: Performed By: #### H S TROP, LIPASE, PT, BMP, HEPATIC, CK, CBC, BNP ####[address] ALT [Catalytic activity/Vol] 42 U/L Normal 7-52 [facility] Comment on above: Performed By: #### H S TROP, LIPASE, PT, BMP, HEPATIC, CK, CBC, BNP ####[address] AST [Catalytic activity/Vol] 31 U/L Normal 13-39 [facility] Comment on above: Performed By: #### H S TROP, LIPASE, PT, BMP, HEPATIC, CK, CBC, BNP ####[address] Bilirubin [Mass/Vol] 0.4 mg/dL Normal 0.3-1.0 [facility] Comment on above: Performed By: #### H S TROP, LIPASE, PT, BMP, HEPATIC, CK, CBC, BNP ####[address] Bilirubin,Indirect 0.3 mg/dL Normal [facility] Comment on above: Performed By: #### H S TROP, LIPASE, PT, BMP, HEPATIC, CK, CBC, BNP ####[address] Bilirubin.indirect [Mass/Vol] 0.10 mg/dL Normal 0.03-0.18 [facility] Comment on above: Performed By: #### H S TROP, LIPASE, PT, BMP, HEPATIC, CK, CBC, BNP ####[facility] [place] [id number] [facility] Globulin (S) [Mass/Vol] 2.6 g/dL Normal [facility] Comment on above: Performed By: #### H S TROP, LIPASE, PT, BMP, HEPATIC, CK, CBC, BNP ####[place] [id number] [place] [id number] [facility] Protein [Mass/Vol] 6.9 g/dL Normal 6.4-8.9 [facility] Comment on above: Performed By: #### H S TROP, LIPASE, PT, BMP, HEPATIC, CK, CBC, BNP ####[place] [id number] [place] [id number] [facility] INR in Platelet poor plasma by Coagulation assayOrdered By: Lynnette Chapman on 08-18-2024 INR Coag (PPP) [Relative time] INR in Platelet poor plasma by Coagulation assay [facility] Comment on above: INR Therapeutic Rang [...] erythrocytes in Blood by Automated coun 3.8-11.6 [facility] Lipaseon 08-18-2024 Lipase [Catalytic activity/Vol] 110.0 U/L High 11.0-82.0 [facility] Comment on above: Result Comment: PERF ORMED BY: [facility] [address] [place] [id number] PATHOLOGIST COUTURE DRESSMAKER JANA OLMEDO M.D. Performed By: #### H S TROP, LIPASE, PT, BMP, HEPATIC, CK, CBC, BNP ####[facility] [id number] [place] [id number] [facility] Lipase [Enzymatic activity/v olume] in Serum or PlasmaOrdered By: Lynnette Chapman on 08-18-2024 Lipase [Catalytic activity/Vol] Lipase [Enzymatic activity/volume] in Serum or Plasma High 11.0-82.0 [facility] Lymphocytes Auto (Bld) [#/Vo l]Ordered By: Lynnette Chapman on 08-18-2024 Lymphocytes (Bld) [#/Vol] Lymphocytes [#/volume] in Blood by Automated count 1.00-4.8 [facility] Lymphocytes/100 WBC Auto (Bl d)Ordered By: Lynnette Chapman on 08-18-2024 Lymphocytes/100 WBC (Bld) Lymphocytes/100 leukocytes in Blood by Automated count . [facility] MCH Auto (RBC) [Entitic mass ]Ordered By: Lynnette Chapman on 08-18-2024 MCH (RBC) [Entitic mass] MCH [Entitic mass] by Automated count 24.7-34.3 [facility] MCHC Auto (RBC) [Mass/Vol]Or dered By: Lynnette Chapman on 08-18-2024 MCHC (RBC) [Mass/Vol] MCHC [Mass/volume] by Automated count 32.0-35.0 [facility] MCV Auto (RBC) [Entitic vol] Ordered By: Lynnette Chapman on 08-18-2024 MCV (RBC) [Entitic vol] MCV [Entitic volume] by Automated count 80-100 [facility] Monocyte distribution width [Entitic volume] in Blood by AutomatedOrdered By: Lynnette Chapman on 08-18-2024 Monocyte distribution width Auto (Bld) [Entitic vol] Monocyte distribution width [Entitic volume] in Blood by Automated 0.00-20.00 [facility] Monocytes Auto (Bld) [#/Vol] Ordered By: Lynnette Chapman on 08-18-2024 Monocytes (Bld) [#/Vol] Automated blood monocyte count 0.0-0.8 [facility] Monocytes/100 WBC Auto (Bld) Ordered By: Lynnette Chapman on 08-18-2024 Monocytes/100 WBC (Bld) Automated monocyte % . [facility] Natriuretic peptide B [Mass/ Vol]Ordered By: Lynnette Chapman on 08-18-2024 Natriuretic peptide B (Bld) [Mass/Vol] BNP ser/plas 5-100 [facility] Neutrophils Auto (Bld) [#/Vo l]Ordered By: Lynnette Chapman on 08-18-2024 Neutrophils (Bld) [#/Vol] Neutrophils [#/volume] in Blood by Automated count 1.8-7.7 [facility] Neutrophils/100 WBC Auto (Bl d)Ordered By: Lynnette Chapman on 08-18-2024 Neutrophils/100 WBC (Bld) Automated neutrophil % . [facility] No Panel InformationOrdered By: Lynnette Chapman on 08-18-2024 Estimated GFR (CKD-EPI) > 60.0 mL/Min [facility] Creatinine Clearance (Chem 95.72 [facility] Nucleated erythrocytes [Pres ence] in Blood by Automated countOrdered By: Lynnette Chapman on 08-18-2024 Nucleated RBC Auto Ql (Bld) Nucleated erythrocytes [Presence] in Blood by Automated count 0-0.5 [facility] Platelet mean volume Auto (B ld) [Entitic vol]Ordered By: Lynnette Chapman on 08-18-2024 Platelet mean volume (Bld) [Entitic vol] Platelet mean volume [Entitic volume] in Blood by Automated count 6.3-10.7 [facility] Platelets Auto (Bld) [#/Vol] Ordered By: Lynnette Chapman on 08-18-2024 Platelets (Bld) [#/Vol] Platelets [#/volume] in Blood by Automated count 150-450 [facility] Potassium [Moles/volume] in Serum or PlasmaOrdered By: Lynnette Chapman on 08-18-2024 Potassium [Moles/Vol] Potassium [Moles/v olume] in Serum or Plasma 3.5-5.1 [facility] Protein [Mass/volume] in Ser um or PlasmaOrdered By: Lynnette Chapman on 08-18-2024 Protein [Mass/Vol] Protein [Mass/volume ] in Serum or Plasma 6.4-8.9 [facility] Prothrombin Time INRon 11-18 -2024 INR Coag (PPP) [Relative time] 1.0 {INR} Normal [facility] Comment on above: Result Comment: [...] heart valves: 3 - 4.5 PERFORMED BY: [place] [address] PATHOLOGIST COUTURE DRESSMAKER JANA OLMEDO M.D. Performed By: #### H S TROP, LIPASE, PT, BMP, HEPATIC, CK, CBC, BNP #### [facility] [address] [place] [address] PT Coag (PPP) [Time] 11.7 s Normal 9.0-12.9 [facility] Comment on above: Result Comment: A he matocrit value greater than 55% may lead to inaccurate results in coagulation testing. Patients having hematocrit values >55% require a special collection tube for coagulation studies. Please contact the laboratory at [phone] for redraw instructions. Performed By: #### H S TROP, LIPASE, PT, BMP, HEPATIC, CK, CBC, BNP #### [facility] [address] [place], [place] [id number] [facility] Prothrombin time (PT)Ordered By: Lynnette Chapman on 08-18-2024 PT Coag (PPP) [Time] Prothrombin time (PT) 9.0- 12.9 [facility] Comment on above: A hematocrit value g reater than 55% may lead to inaccurate results in coagulation testing. Patients having hematocrit values >55% require a special collection tube for coagulation studies. Please contact the laboratory at [phone] for redraw instructions. RBC Auto (Bld) [#/Vol]Ordere d By: Lynnette Chapman on 08-18-2024 RBC (Bld) [#/Vol] Erythrocytes [#/volu me] in Blood by Automated count 3.60-5.00 [facility] Serum or plasma albumin/glob ulin mass ratioOrdered By: Lynnette Chapman on 08-18-2024 Albumin/Globulin [Mass ratio] Serum or plasma albumin/globulin mass ratio [facility] Serum or plasma anion gap de terminationOrdered By: Lynnette Chapman on 08-18-2024 Anion gap [Moles/Vol] Serum or plasma an ion gap determination 6.0-15.0 [facility] Serum or plasma non-glucuron idated bilirubin measurement (mass/volume)Ordered By: Lynnette Chapman on 08-18-2024 Bilirubin.indirect [Mass/Vol] Serum or plasma non-glucuronidated bilirubin measurement (mass/volume) [facility] Sodium [Moles/volume] in Ser um or PlasmaOrdered By: Lynnette Chapman on 08-18-2024 Sodium [Moles/Vol] Sodium [Moles/volume ] in Serum or Plasma 136-145 [facility] Troponin I High Sensitivityo n 08-18-2024 Troponin I High Sensitivity 4.7 pg/mL Normal 0.0-15.0 [facility] Comment on above: Result Comment: PERF ORMED BY: [facility] [address] [place] [address] PATHOLOGIST COUTURE DRESSMAKER JANA OLMEDO M.D. Performed By: #### H S TROP ####[place] [id number] [facility] Troponin I High Sensitivity 5.1 pg/mL Normal 0.0-15.0 [facility] Comment on above: Result Comment: PERF ORMED BY: [facility] [address] [place] [address] PATHOLOGIST COUTURE DRESSMAKER JANA OLMEDO M.D. Performed By: #### H S TROP, LIPASE, PT, BMP, HEPATIC, CK, CBC, BNP ####[place] [id number] [facility] Troponin I.cardiac [Mass/vol ume] in Serum or Plasma by Detection limit <= 0.01 ng/Ordered By: Lynnette Chapman on 08-18-2024 Troponin I.cardiac DL <= 0.01 ng/mL [Mass/Vol] Troponin I.cardiac [Mass/volume] in Serum or Plasma by Detection limit <= 0.01 ng/ 0.0-15.0 [facility] Urea nitrogen [Mass/volume] in Serum or PlasmaOrdered By: Lynnette Chapman on 08-18-2024 Urea nitrogen [Mass/Vol] Urea nitrogen [Mass/volume] in Serum or Plasma 7-25 [facility] WBC Auto (Bld) [#/Vol]Ordere d By: Lynnette Chapman on 08-18-2024 WBC (Bld) [#/Vol] Leukocytes [#/volume ] in Blood by Automated count 3.8-11.6 [facility] XR chest 2V*on 08-18-2024 XR chest 2V* [facility] [address] [place] [address] XRay Report Signed Patient: Jose Alberto Saleem MR#: [id number] : 1965 Acct:[id number] Age/Sex: 59 / F ADM Date: 08/18/24 Loc: Room: [address] [place] [address] Type: ADM INOo Attending Dr: Donis Arroyo [...] Thelma Wick M.D.08/19/2024 12:10 AM Dictation Location: [place] [address] Transcribed By: [facility] 08/19/24 001 Dictated By: Thelma Wick MD 08/18/242210 Signed By: 08/19/24 001 Normal [facility] Reminderson 08-05-2024 Reminders Reminders From: Magdalena Longoria To: EU - Administrative; Sent: 08/05/2024 13:08:24 EST Show up: 03/01/2025 13:08:00 EDT Subject: 1 yr reminder Due Date/Time: 08/01/2025 13:08:00 EDT Reminder/Recall Patient needs scheduled with [facility] for a 1 yr f/u with [facility]UB Normal [facility] Urology Office/Clinic Noteon 08-05-2024 Urology Office/Clinic [...] Myrbetriq from 25mg to 50mg qd Ordered: 91964 Measure Post Void residual urine and/or bladder capacity by US- non-imaging E&M of Est. Patient Moderate 30-39 Min 91595 Urnls Dip Stick Auto w/o Microscopy POC 07138 2. Urethral pain (R39.89: Other symptoms and [...] day(s), # 90 tab(s), Refills(s) 3, Pharmacy: [facility] [id number], 160, cm, 08/05/24 11:29:00 EST, Height/Length Dosing, 74.2, kg, 08/05/24 11:29:00 EST, Weight Dosing tamsulosin, 0.4 mg = 1 cap(s), Oral, Daily, # 90 cap(s), Refills(s) 3, Pharmacy: [facility], 160, cm, 08/05/24 11:29:00 EST, Height/Length Dosing, 74.2, kg, 08/05/24 11:29:00 EST, Weight Dosing Follow-up With When Contact Information JENNIFER MARTINO PA-C, URL Within 1 year Additional Instructions: Patient Education Kidney Stones, Bnyp-td-Qluf Problem List/Past Medical History Ongoing Anticoagulated Feeling (more content not included)... Normal [facility] Comment on above: Result Comment: Elec [...] wk f/u. Appointment due by 06/19/2024 in [place] with [facility] PT SCHEDULED JUL 03, 2024 Normal [facility] Urology Office/Clinic Noteon 04-10-2024 Urology Office/Clinic [...] E&M of Est. Patient High 40-54 Min 93231 Urnls Dip Stick Auto w/o Microscopy POC 23996 2. OAB (overactive bladder) (N32.81: Overactive bladder) [...] E&M of Est. Patient High 40-54 Min 06694 3. Urethral pain (R39.89: Other symptoms and [...] E&M of Est. Patient High 40-54 Min 46370 Orders: estradiol topical, See Instructions, 42.5 gm, Refill(s) 6, apply a pea-sized amount vaginally and around the urethra nightly x 3 weeks, then 3x per week thereafter, [id number], 160, cm, 04/10/24 15:13:00 EDT, Height/Length Dosing, 74, kg, 04/10/24 15:13... mirabegron, 25 mg = 1 tab(s), Oral, Daily, do not fill both mirabegron AND vibegron. only fill whichever has lower co-pay., X 30 day(s), # 30 tab(s), Refills(s) 11, Pharmacy: [facility] #[id number], 160, cm, 04/10/24 15:13:00 EDT, Height/Length Dosing, 74, k... vibegron, 75 mg = 1 tab(s), Oral, Daily, X 30 day(s), # 30 tab(s), Refills(s) 11, Pharmacy: [facility] #[id number], 160, cm, 04/10/24 15:13:00 EDT, Height/Length Dosing, 74, kg, 04/10/24 15:13:00 EDT, Weight Dosing Total time spent reviewing previous notes/results/external documents, preparing the chart, conducting the encounter with the patient and family, ordering tests/medications, and documenting the encounter was 40 minutes. Follow-up With When Contact Information JENNIFER MARTINO PA-C, URL Within 3 months [address] [place] [address] Additional Instructions: Patient Education Kidney Stones, Moqq-it-Kitm Problem List/Past Medical History Ongoing Anticoagulated Feeling of incomplete b (more content not included)... Normal [facility] Comment on above: Result Comment: Elec tronically Signed By: JENNIFER MARTINO PA-C\.br\Date and Time Signed: 04/10/24 16:09 EDT Glucose Glucometer (BldC) [M ass/Vol]on 03-06-2024 Glucose [Mass/Vol] 79 mg/dL Normal 65-99 [facility] 02-28-2024 36 Scheduled EGD/EUS 03/06/24 @1130, PTH, Dr. Cesar, PAT ph: 02/29/24 @1000, #[id number], Clinic appt 02/27/24 w/ [facility]. [facility] [id number] 2023 ALPHA-1 ANTITRYPSIN 145 mg/dL Normal 90-200 [facility] Comment on above: Result Comment: To c onvert to umol/L, multiply mg/dL by 0.185 Performed By: [facility] [address] [place] [address] [employer] Teacher: Sarwat Gorman MD, PhD CLIA Number: [id number] Performed By: #### L [id number] #### [facility] [address] [place] [address] ANAon 02-27-2024 CHAY TITER <1:40 Normal <=1:40 [facility] Comment on above: Result Comment: Test performed using BRIJESH IFA CHAY Hep-2 Test, a pre-standardized assay designed for the qualitative and semi-quantitative detection of antinuclear antibodies. Performed By: #### L [id number] #### [facility] (BEAKER) [address] [place] [address] ANTI-SMOOTH MUSCLE ANTIBODY TITERon 02-27-2024 SMOOTH MUSCLE AB, IGG TITER <1:20 Normal <1:20 [facility] Comment on above: Result Comment: INTE RPRETIVE INFORMATION: Smooth Muscle Ab, IgG Titer Less than 1:20 ........ Negative - No antibody detected. 1:20 - 1:80 .......... Weak Positive - Suggest repeat in two to three weeks with fresh specimen. 1:160 or greater ...... Positive - Suggestive of autoimmune hepatitis or chronic active hepatitis. Performed By: [facility] [address] [place] [id number] [employer] Teacher: Sarwat Gorman MD, PhD CLIA Number: [id number] Performed By: #### L [id number] #### [facility] ([facility]) [address] [place] [address] CBC WITH AUTO DIFFERENTIALon 02-27-2024 Basophils (Bld) [#/Vol] 0.01 10*3/uL Normal 0.00-0.20 [facility] Comment on above: Performed By: #### L [id number] #### [facility] ([facility]) [address] [facility] [place] [address] Basophils/100 WBC (Bld) 0.2 % Normal 0.0-1.0 [facility] Comment on above: Performed By: #### L [id number] #### [facility] ([facility]) [address] [place] [address] Eosinophils (Bld) [#/Vol] 0.17 10*3/uL Normal 0.00-0.50 [facility] Comment on above: Performed By: #### L [id number] #### [facility] ([facility]) [address] [facility] [place] [address] Eosinophils/100 WBC (Bld) 3.2 % Normal 0.0-6.0 [facility] Comment on above: Performed By: #### L [id number] #### [facility] ([facility]) [address] [facility] [place] [address] Erythrocyte distribution width (RBC) [Ratio] 12.6 % Normal 11.5-15.0 [facility] Comment on above: Performed By: #### L [id number] #### [facility] ([facility]) [address] [place] [address] ERYTHROCYTE MEAN CORPUSCULAR HEMOGLOBIN CONCENTRATION (G/DL) BY AUTOMATED 33.6 g/dL Normal 32.0-35.0 [facility] Comment on above: Performed By: #### L [id number] #### [facility] ([facility]) [address] [facility] [place] [address] Hematocrit (Bld) [Volume fraction] 44.0 % Normal 36.0-48.0 [facility] Comment on above: Performed By: #### L [id number] #### [facility] (BEAKER) [address] [place] [address] Hemoglobin (Bld) [Mass/Vol] 14.8 g/dL Normal 12.0-15.0 [facility] Comment on above: Performed By: #### L [id number] #### [facility] ([facility]) [address] [place] [address] Immature granulocytes (Bld) [#/Vol] 0.01 10*3/uL Normal 0.00-0.20 [facility] Comment on above: Performed By: #### L [id number] #### [facility] ([facility]) [address] [place] [address] Immature granulocytes/100 WBC (Bld) 0.2 % Normal 0.0-1.0 [facility] Comment on above: Performed By: #### L [id number] #### [facility] ([facility]) [address] [place] [address] Lymphocytes (Bld) [#/Vol] 1.19 10*3/uL Low 1.20-4.00 [facility] Comment on above: Performed By: #### L [id number] #### [facility] (BEAKER) [address] [place] [address] Lymphocytes/100 WBC (Bld) 22.3 % Normal 20.0-45.0 [facility] Comment on above: Performed By: #### L [id number] #### [facility] (BEAKER) [address] [place] [address] MCH (RBC) [Entitic mass] 30.2 pg Normal 27.0-33.0 [facility] Comment on above: Performed By: #### L [id number] #### [facility] (BEAKER) [address] [place] [address] MCV (RBC) [Entitic vol] 89.8 fL Normal 82.0-98.0 [facility] Comment on above: Performed By: #### L [id number] #### [facility] ([facility]) [address] [place] [address] Monocytes (Bld) [#/Vol] 0.53 10*3/uL Normal 0.10-1.00 [facility] Comment on above: Performed By: #### L [id number] #### [facility] ([facility]) [address] [place] [address] Monocytes/100 WBC (Bld) 9.9 % Normal 5.0-12.0 [facility] Comment on above: Performed By: #### L [id number] #### [facility] ([facility]) [address] [place] [address] Neutrophils (Bld) [#/Vol] 3.42 10*3/uL Normal 1.60-7.60 [facility] Comment on above: Performed By: #### L [id number] #### [facility] ([facility]) [address] [place] [address] Neutrophils/100 WBC (Bld) 64.2 % Normal 40.0-72.0 [facility] Comment on above: Performed By: #### L [id number] #### [facility] ([facility]) [address] [place] [address] NRBC (PER 100 WBCS) BY AUTOMATED COUNT 0.0 % Normal 0 [facility] Comment on above: Performed By: #### L [id number] #### [facility] ([facility]) [address] [place] [address] PLATELETS (10*3/UL) IN BLOOD AUTOMATED COUNT 198 10*3/uL Normal 150-400 [facility] Comment on above: Performed By: #### L [id number] #### [facility] ([facility]) [address] [place] [address] RBC (Bld) [#/Vol] 4.90 10*6/uL Normal 3.80-5.00 [facility] Comment on above: Performed By: #### L [id number] #### [facility] ([facility]) [address] [place] [address] WBC (Bld) [#/Vol] 5.33 10*3/uL Normal 4.00-10.60 [facility] Comment on above: Performed By: #### L [id number] #### [facility] ([facility]) [address] [place] [address] COMPREHENSIVE METABOLIC PANE Curtis 02-27-2024 Albumin [Mass/Vol] 4.4 g/dL Normal 3.5-5.7 [facility] Comment on above: Performed By: #### L [id number] #### [facility] ([facility]) [address] [place] [address] ALP [Catalytic activity/Vol] 84 U/L Normal 34-104 [facility] Comment on above: Performed By: #### L [id number] #### [facility] ([facility]) [address] [place] [address] ALT [Catalytic activity/Vol] 43 U/L Normal 7-52 [facility] Comment on above: Performed By: #### L [id number] #### [facility] ([facility]) [address] [place] [address] Anion gap [Moles/Vol] 11 mmol/L Normal 7-20 [facility] Comment on above: Performed By: #### L [id number] #### [facility] ([facility]) [address] [place] [address] AST [Catalytic activity/Vol] 33 U/L Normal 13-39 [facility] Comment on above: Performed By: #### L [id number] #### [facility] ([facility]) [address] [place] [address] Bilirubin [Mass/Vol] 0.4 mg/dL Normal 0.3-1.0 [facility] Comment on above: Performed By: #### L [id number] #### [facility] ([facility]) [address] [place] [address] Calcium [Mass/Vol] 9.9 mg/dL Normal 8.6-10.3 [facility] Comment on above: Performed By: #### L [id number] #### [facility] (BEAKER) [address] [place] [address] Chloride [Moles/Vol] 102 mmol/L Normal 98-107 [facility] Comment on above: Performed By: #### L [id number] #### [facility] ([facility]) [address] [place] [address] CO2 [Moles/Vol] 29 mmol/L Normal 21-31 [facility] Comment on above: Performed By: #### L [id number] #### [facility] ([facility]) [address] [place] [address] Creatinine [Mass/Vol] 0.62 mg/dL Normal 0.60-1.20 [facility] Comment on above: Performed By: #### L [id number] #### [facility] ([facility]) [address] [place] [address] GLOMERULAR FILTRATION RATE ML/MIN/1.73 SQ M.PREDICTED 102.5 mL/min/1.73m*2 Normal >60.0 [facility] Comment on above: Result Comment: [facility]???s estimated glomerular filtration rate (eGFR) will [...] Performed By: #### L [id number] #### [facility] ([facility]) [address] [place] [address] Glucose [Mass/Vol] 90 mg/dL Normal 70-100 [facility] Comment on above: Performed By: #### L [id number] #### [facility] (BEAKER) [address] [place] [address] Potassium [Moles/Vol] 4.2 mmol/L Normal 3.5-5.1 [facility] Comment on above: Performed By: #### L [id number] #### [facility] (BEAKER) [address] [place] [address] Protein [Mass/Vol] 6.9 g/dL Normal 6.0-8.3 [facility] Comment on above: Performed By: #### L [id number] #### [facility] ([facility]) [address] [place] [address] Sodium [Moles/Vol] 138 mmol/L Normal 136-145 [facility] Comment on above: Performed By: #### L [id number] #### [facility] ([facility]) [address] [place] [address] Urea nitrogen [Mass/Vol] 27 mg/dL High 7-25 [facility] Comment on above: Performed By: #### L [id number] #### [facility] ([facility]) [address] [place] [address] UREA NITROGEN/CREATININE (MASS RATIO) IN SER/PLAS 43.5 [facility] Comment on above: Performed By: #### L [id number] #### [facility] ([facility]) [address] [place] [address] COPPER, SERUMon 02-27-2024 COPPER 125.0 ug/dL Normal 80.0-155.0 [facility] Comment on above: Result Comment: [...] developed and its performance characteristics determined by [facility]. It has not been cleared or approved by the US Food and Drug Administration. This test was performed in a CLIA certified laboratory and is intended for clinical purposes. Performed By: [facility] [address] [place] [id number] [employer] Teacher: Sarwat Gorman MD, PhD CLIA Number: [id number] Performed By: #### L [id number] #### [facility] ([facility]) [address] [place] [address] FERRITINon 02-27-2024 FERRITIN (NG/ML) IN SER/PLAS 32.0 ng/mL Normal 11.0-307.0 [facility] Comment on above: Performed By: #### L [id number] #### [facility] ([facility]) [address] [place] [address] FOLATEon 02-27-2024 FOLATE (NG/ML) IN SER/PLAS 39.0 ng/mL Normal 6.6-1000 [facility] Comment on above: Performed By: #### L [id number] #### [facility] ([facility]) [address] [place] [address] HEMOGLOBIN A1Con 02-27-2024 Glucose [Mass/Vol] 100 mg/dL Normal [facility] Comment on above: Performed By: #### L [id number] #### [facility] ([facility]) [address] [place] [address] HbA1c (Bld) [Mass fraction] 5.1 % Normal 4.0-6.0 [facility] Comment on above: Performed By: #### L [id number] #### [facility] ([facility]) [address] [place] [address] HEPATITIS PANEL, ACUTEon HEPATITIS A VIRUS IGM AB PRESENCE IN SER/PLAS Non-Reactive Normal Nonreactive [facility] Comment on above: Performed By: #### L [id number] #### [facility] ([facility]) [address] [place] [address] HEPATITIS B VIRUS CORE AB (PRESENCE) IN SER/PLAS BY IMM Non-Reactive Normal Nonreactive [facility] Comment on above: Performed By: #### L [id number] #### [facility] ([facility]) [address] [place] [address] HEPATITIS B VIRUS SURFACE AG PRESENCE IN SERUM Non-Reactive Normal Nonreactive [facility] Comment on above: Performed By: #### L [id number] #### [facility] ([facility]) [address] [place] [address] HEPATITIS C VIRUS AB PRESENCE IN SERUM Non-Reactive Normal Nonreactive [facility] Comment on above: Performed By: #### L [id number] #### [facility] ([facility]) [address] [place] [address] IGAon 02-27-2024 Magnesium [Mass/Vol] 108 mg/dL Normal 60-413 [facility] Comment on above: Performed By: #### L [id number] #### [facility] ([facility]) [address] [place] [address] IGG 1, 2, 3, AND 4on 024 IgG subclass 1 (S) [Mass/Vol] 293 mg/dL Normal 240-1118 [facility] Comment on above: Result Comment: REFE RENCE INTERVAL: Immunoglobulin G Subclass 1 The total IgG (mg/dL) can be derived from the sum of the subclass IgG1, IgG2, IgG3, and IgG4 values. However, a confirmatory and more precise total IgG is available by the turbidimetric method of quantitation for total IgG. Refer to test Immunoglobulin G, Serum ([id number]). Access complete set of age- and/or gender-specific reference intervals for this test in the [facility] ([facility]). Performed By: #### L [id number] #### [facility] ([facility]) [address] [place] [address] IgG subclass 2 (S) [Mass/Vol] 160 mg/dL Normal 124-549 [facility] Comment on above: Result Comment: REFE RENCE INTERVAL: Immunoglobulin G Subclass 2 Access complete set of age- and/or gender-specific reference intervals for this test in the [facility] ([facility]). Performed By: #### L [id number] #### [facility] ([facility]) [address] [place] [address] IgG subclass 3 (S) [Mass/Vol] 32 mg/dL Normal 21-134 [facility] Comment on above: Result Comment: REFE RENCE INTERVAL: Immunoglobulin G Subclass 3 Access complete set of age- and/or gender-specific reference intervals for this test in the [facility] ([facility]). Performed By: #### L [id number] #### [facility] ([facility]) [address] [place] [address] IgG subclass 4 (S) [Mass/Vol] 21 mg/dL Normal 1-123 [facility] Comment on above: Result Comment: REFE RENCE INTERVAL: Immunoglobulin G Subclass 4 Access complete set of age- and/or gender-specific reference intervals for this test in the [facility] ([facility]). Performed By: [facility] [address] [place] [address] [employer] Teacher: Sarwat Gorman MD, PhD CLIA Number: [id number] Performed By: #### L [id number] #### [facility] ([facility]) [address] [place] [address] IRON AND TIBCon 02-27-2024 IRON (UG/DL) IN SER/PLAS 56 ug/dL Normal 50-212 [facility] Comment on above: Performed By: #### L [id number] #### [facility] ([facility]) [address] [place] [address] IRON BINDING CAPACITY (UG/DL) IN SER/PLAS 364 ug/dL Normal 250-450 [facility] Comment on above: Performed By: #### L [id number] #### [facility] ([facility]) [address] [place] [address] IRON BINDING CAPACITY.UNSATURATED (UG/DL) IN SER/PLAS 308.0 ug/dL Normal 155.0-355.0 [facility] Comment on above: Performed By: #### L [id number] #### [facility] (BEAKER) [address] [address] IRON SATURATION (%) IN SER/PLAS 15 % Low 20-50 [facility] Comment on above: Performed By: #### L [id number] #### [facility] (BEAKER) [address] [facility] [place] [place] [address] LIPID PANELon 02-27-2024 CHOL/HDL 2.9 mg/dL [facility] Comment on above: Performed By: #### L [id number] #### [facility] (BEAKER) [address] [facility] [place] [address] Cholesterol [Mass/Vol] 111 mg/dL Low 120-200 [facility] Comment on above: Performed By: #### L [id number] #### [facility] (BEAKER) [address] [facility] [place] [address] Magnesium [Mass/Vol] 144 mg/dL Normal 40-149 [facility] Comment on above: Result Comment: TRIG LYCERIDE REFERENCE RANGE: 20 YEARS AND OLDER CARDIOVASCULAR RISK LESS THAN 150 mg/dL LOW RISK 150 TO 199 mg/dL BORDERLINE RISK 200 mg/dL AND GREATER HIGH RISK Performed By: #### L [id number] #### [facility] (BEAKER) [address] [facility] [place] [address] Magnesium [Mass/Vol] 44 mg/dL Normal 0-160 [facility] Comment on above: Performed By: #### L [id number] #### [facility] (BEAKER) [address] [facility] [place] [address] Magnesium [Mass/Vol] 38 mg/dL Normal 23-92 [facility] Comment on above: Performed By: #### L [id number] #### [facility] (BEAKER) [address] [place] [address] NON HDL CHOL. (LDL+VLDL) 73 [facility] Comment on above: Performed By: #### L [id number] #### [facility] (BEAKER) [address] [place] [address] TOTAL VLDL-C 29 mg/dL Normal 0-40 [facility] Comment on above: Performed By: #### L [id number] #### [facility] ([facility]) [address] [address] LIVER FIBROSIS CHRONIC VIRAL HEPATITISon 02-27-2024 [id number] , FIBROMETER 328 mg/dL High 131-293 [facility] Comment on above: Performed By: #### L [id number] #### [facility] ([facility]) [address] [place] [address] ALT [Catalytic activity/Vol] 57 U/L High 5-40 [facility] Comment on above: Performed By: #### L [id number] #### [facility] ([facility]) [address] [facility] [place] [address] Amylase [Catalytic activity/Vol] 18 U/L Normal 7-33 [facility] Comment on above: Performed By: #### L [id number] #### [facility] ([facility]) [address] [facility] [place] [address] AST [Catalytic activity/Vol] 41 U/L High 9-40 [facility] Comment on above: Performed By: #### L [id number] #### [facility] ([facility]) [address] [facility] [place] [address] CIRRHOMETER PATIENT SCORE 0.08 [facility] Comment on above: Performed By: #### L [id number] #### [facility] ([facility]) [address] [facility] [place] [address] EER FIBROMETER REPORT See Note [facility] Comment on above: Result Comment: Auth orized individuals can access the [facility] Enhanced Report using the following link: [email or web address] Performed By: #### L [id number] #### [facility] ([facility]) [address] [facility] [place] [address] FIBROMETER INTERPRETATION See Report [facility] Comment on above: Result Comment: [17] [13] INTERPRETIVE INFORMATION: Fibrometer Interpretation Calculations for the final report are based on accurate data for age, gender, and platelet count. If any of this information needs to be corrected, please contact [employer] to request a recalculation. Client [...] developed and its performance characteristics determined by [facility]. It has not been cleared or approved by the [place] Food and Drug Administration. This test was performed in a CLIA certified laboratory and is intended for clinical purposes. Performed By: [facility] [address] [place] [id number] [employer] Teacher: Sarwat Gorman MD, PhD CLIA Number: [id number] Performed By: #### L [id number] #### [facility] (BEAKER) [address] [place] [address] FIBROMETER PATIENT SCORE 0.62 [facility] Comment on above: Performed By: #### L [id number] #### [facility] (BEAKER) [address] [place] [address] FIBROMETER PLATELET COUNT 198 k/uL [facility] Comment on above: Performed By: #### L [id number] #### [facility] ([facility]) [address] [place] [address] FIBROMETER PROTHROMBIN INDEX 81 % Low 90-120 [facility] Comment on above: Performed By: #### L [id number] #### [facility] ([facility]) [address] [place] [address] FIBROSIS METAVIR CLASSIFICATION F2[F1-F3] [facility] Comment on above: Result Comment: [...] Performed By: #### L [id number] #### [facility] ([facility]) [address] [place] [address] INFLAMETER METAVIR CLASSIFICATION A1/A2 [facility] Comment on above: Result Comment: INTE RPRETIVE INFORMATION: InflaMeter Metavir Classification InflaMeter (activity score) comments A0/A1 Equal probability between A0 and A1 A1/A2 Equal probability between A1 and A2 A2/A3 Equal probability between A2 and A3 Performed By: #### L [id number] #### [facility] ([facility]) [address] [place] [address] INFLAMETER PATIENT SCORE 0.62 [facility] Comment on above: Performed By: #### L [id number] #### [facility] ([facility]) [address] [place] [address] Urea nitrogen [Mass/Vol] 28 mg/dL High 7-20 [facility] Comment on above: Performed By: #### L [id number] #### [facility] (BEAKER) [address] [facility] [place] [address] Labon 02-27-2024 Lab [id number] Diana Saleem tte 1965 Provider Department Center 02/27/2024 [facility] D[facility] Pavi Family History Problem Relation Age of Onset Hyperlipidemia Mother Hyperlipidemia Father Hyperlipidemia Brother Heart attack Brother Family Status - Relation Status Age at Mother Father Brother Brother [facility] MITOCHONDRIAL ANTIBODIES, M2 on 02-27-2024 MITOCHONDRIAL M2 ANTIBODY 7.2 Units Normal 0.0-24.9 [facility] Comment on above: Result Comment: REFE [...] does not rule out PBC. Performed By: [facility] [address] [place] [address] [employer] Teacher: Sarwat Gorman MD, PhD CLIA Number: [id number] Performed By: #### L [id number] #### [facility] (BEAKER) [address] [facility] [place] [address] Office Visiton 02-27-2024 Follow-up visit [id number] Diana Saleem tte 1965 Provider Department Center 02/27/2024 [facility] Family History Problem Relation Age of Onset Hyperlipidemia Mother Hyperlipidemia Father Hyperlipidemia Brother Heart attack Brother Family Status - Relation Status Age at Mother Father Brother Brother Level of Service:24136 [place] OFFICE/OUTPATIENT NEW MODERATE MDM 45 MINUTES (GC) Reason for Visit and Comments: New Patient [632] Pancreatitis [364031] [facility] PROTIME-INRon 02-27-2024 INR IN PPP BY COAGULATION ASSAY 1.08 Normal 0.90-1.10 [facility] Comment on above: Result Comment: [facility] P RECOMMENDED INR FOR WARFARIN THERAPY CONDITION [...] Performed By: #### L [id number] #### [facility] (BEAKER) [address] [place] [address] PROTHROMBIN TIME (PT) IN PPP BY COAGULATION ASSAY 14.0 Seconds Normal 12.3-14.8 [facility] Comment on above: Performed By: #### L [id number] #### [facility] ([facility]ER) [address] [place] [address] TISSUE TRANSGLUTAMINASE, IGA on 02-27-2024 TISSUE TRANSGLUTAMINASE, IGA <1.02 Normal 0.00-4.99 [facility] Comment on above: Result Comment: [...] indicate a response to therapy. Performed By: [facility] [address] [place] [address] [employer]: Sarwat Gorman MD, PhD CLIA Number: [id number] Performed By: #### L [id number] #### [facility] ([facility]) [address] [place] [address] TSH3 REFLEX TO FT4on 024 THYROTROPIN (MIU/L) IN SER/PLAS BY DETECTION LIMIT <= 0.05 MIU/L 2.02 mIU/L Normal 0.34-5.60 [facility] Comment on above: Performed By: #### L [id number] #### [facility] ([facility]) [address] [place] [address] VITAMIN B12on 02-27-2024 Cobalamin (Vitamin B12) [Mass/Vol] 1862 pg/mL High 180-914 [facility] Comment on above: Result Comment: REFE RENCE RANGES: 180-914 pg/mL Normal 145-179 pg/mL Indeterminate <145 pg/mL Deficient Performed By: #### L [id number] #### [facility] ([facility]) [address] [place] [address] VITAMIN D 25 HYDROXYon 02-26 CALCIDIOL (25 [place] VITAMIN D3) (NG/ML) IN SER/PLAS 62.1 ng/mL Normal 30.0-80.0 [facility] Comment on above: Result Comment: >80. 0 Toxicity possible Performed By: #### L [id number] #### [facility] ([facility]) [address] [place] [address] Orders Onlyon 02-12-2024 Orders Only [id number] Diana Saleem ttrene 1965 F Date Provider Department Center 02/12/2024 [id number], HISTORICAL MP GI Medical [facility]avi No family history on file [facility] Lab Reportson 01-23-2024 Lab Reports [id number]#1.00TIF F Normal [facility] Lab Reports [id number] [id number]#1.00TIF F Normal [facility] Lab Reportson 01-22-2024 Lab Reports [id number]#1.00TIF F Normal [facility] Lab Reports [id number]#1.00TIF F Normal [facility] Lab Reports [id number]#1.00TIF F [facility] RAD - MISCon 01-22-2024 RAD - MISC [id number]#1.00TIF F Normal [facility] Surgical Pathology Reporton 06-18-2023 Surgical Pathology Report (NOTE) Path Number: [id number] -- Diagnosis -- ENDOMETRIAL CURETTINGS: -BENIGN ENDOMETRIAL [...] Microscopic Description Microscopic examination performed. Processing Lab: [facility] [address] [place] [address] Interpretation Performed at [facility] [address] [place] [address] SURGICAL PATHOLOGY CONSULTATION Patient Name: JOSE ALBERTO SALEEM [facility] Rec: [id number] [facility] ANATOMIC PATHOLOGY [address] [place], [place] [address] Normal [facility] US NON OB TRANSVAGINALon US NON [...] Gaby Tello DO 06/05/23 Final result Normal [facility] Ceruloplasminon 12-12-2022 Ceruloplasmin 30.6 mg/dL 19.0-39.0 mg/dL [facility] Other Ferritinon 12-12-2022 Ferritin [Mass/Vol] 43.6875039 ng/mL Normal 11.0 -306.8 ng/mL [facility] Other Hepatitis A Antibody Totalon 12-12-2022 Hepatitis A Antibody Total Negative . [facility] Other Hepatitis B Surface Antibody on 12-12-2022 Hepatitis B Surface Antibody Non-Reactive Non Reactive [facility] Other Immunoglobulin Javi 3 Immunoglobulin G 823 mg/dL 586-1602 mg/dL [facility] Other Liver-Kidney Microsomal Abon 12-12-2022 Liver-Kidney Microsomal Ab 1.1 0.0-20.0 [facility] Other Mitochondrial (M2) Antibodyo n 12-12-2022 Mitochondrial (M2) Antibody <20.0 0.0-20.0 [facility] Other Smooth Muscle Antibodyon Smooth Muscle Antibody 5 0-19 [facility] Other MR MRCPon 11-10-2022 MR MRCP [facility] Other MR MRCP [facility] Other MR MRCP [address] [facility] [address] [facility] Other MR MRCP MRI Report [facility] Other MR MRCP Signed [facility] Other MR MRCP Patient: Danika Saleem MR#: [id number] [facility] Other MR MRCP 571 [facility] Other MR MRCP : 1965 Acct:[id number] [facility] Other MR MRCP Age/Sex: 57 / F ADM Date: 11/10/22 [facility] Other MRCP Loc: MR Room: Type: [facility] Other MR MRCP Attending Dr: Evert salinas MD [facility] Other MR MRCP Copies to: Evert daigle MD [facility] Other MRCP Ordering Provider: Marleny Bruno MD [facility] Other MR MRCP Date of Service: 11/10/22 [facility] Other MR MRCP MR/MR MRCP: Abdominal pain;Common bile duct dilatation;Elevated liver en [facility] Other MR MRCP MRCP [facility] Other MR MRCP CLINICAL DATA: [place] hay[place] lipase. Abnormal outside abdominal CT [facility] Other MR MRCP COMPARISON: CT abdom en 10/16/2022 [facility] Other MR MRCP Multiecho imaging of the abdomen was performed along with radial imaging of the biliary tree. [facility] Other MR MRCP The gallbladder surgically absent. There is no significant intrahepatic biliary dilatation. The [facility] Other MR MRCP common duct is sligh tly prominent measuring up to 6 mm. It tapers toward the ampulla. No in [facility] Other MR MRCP traluminal filling defects are identified to suggest choledocholithiasis. The pancreatic duct is [facility] Other MR MRCP also borderline prominent measuring 2 - 3 mm. No intrahepatic masses are identified. No pancreatic [facility] Other MR MRCP abnormalities are no hayley. The spleen and adrenal glands are within normal limits. There is no [facility] Other MR MRCP hydronephrosis. Ther e are right renal cysts. There is no aortic aneurysm. No adenopathy or [facility] Other MR MRCP ascites is seen. The re is no dilated bowel within the [id number]. [facility] Other MR MRCP M R/MR MRCP [facility] Other MR MRCP IMPRESSION: [facility] Other MR MRCP SLIGHTLY PROMINENT COMMON DUCT, WITHOUT CHOLEDOCHOLITHIASIS. THIS MAY RELATE TO PREVIOUS [facility] Other MR MRCP CHOLECYSTECTOMY. [facility] Other MR MRCP RIGHT RENAL CYSTS. [facility] Other MR MRCP NO OTHER SIGNIFICANT MRI FINDINGS. [facility] Other MR MRCP Impression dictated by: Thelma Wick M.D.11/10/2022 7:00 PM [facility] Other MR MRCP Dictation Location: [place] [address] [facility] Other MR MRCP Transcribed By: PWS 11/10/221899 [facility] Other MR [facility]CP Dictated By: Thelma Wick MD 11/10/221849 [facility] Other MR MRCP Signed By: [facility] Other MR MRCP 11/10/221899 [facility] Other Albumin [Mass/volume] in Ser um or PlasmaOrdered By: Evert Bruno on 11-01-2022 Albumin [Mass/Vol] 4.0 g/dL 3.2-5.5 [facility] Direct bilirubin measurement Ordered By: Evert Bruno on 11-01-2022 Bilirubin.direct [Mass/Vol] 0.1 mg/dL 0.0-0.4 [facility] Globulin Calc (S) [Mass/Vol] Ordered By: Evert Bruno on 11-01-2022 Globulin (S) [Mass/Vol] 2.5 g/dL [facility] Hepatic Panelon 11-01-2022 Albumin [Mass/Vol] 4.632236 g/dL Normal 3.2-5.5 g/dL [employer] Other ALT [Catalytic activity/Vol] 94 U/L High 10-60 U/L [facility] Other Bilirubin [Mass/Vol] 0.0731790 mg/dL Normal 0.3- 1.2 mg/dL [facility] Other Bilirubin.indirect [Mass/Vol] 0.2569201 mg/dL Normal 0.0-0.4 mg/dL [facility] Other Protein [Mass/Vol] 6.550782 g/dL Normal 6.1-7.9 g/dL [employer] Other Hepatic Panel 0.5 mg/dL [facility] Other Hepatic Panel 2.5 g/dL [facility] Other Protein [Mass/volume] in Ser um or PlasmaOrdered By: Imsara Bruno on 11-01-2022 Protein [Mass/Vol] 6.5 g/dL 6.1-7.9 [facility] Serum or plasma alanine li otransferase measurement without P-5'-P (enzymatic activiOrdered By: Imad Asaad on 11-01-2022 ALT No additional P-5'-P [Catalytic activity/Vol] 94 U/L 10-60 [facility] Serum or plasma albumin/glob ulin mass ratioOrdered By: [employer] Asaad on 11-01-2022 Albumin/Globulin [Mass ratio] 1.6 {ratio} [facility] Serum or plasma alkaline monster sphatase measurement (enzymatic activity/volume)Ordered By: [employer] Asaad on 11-01-2022 ALP [Catalytic activity/Vol] 93 U/L 32-92 [facility] Serum or plasma aspartate am inotransferase measurement (enzymatic activity/volume)Ordered By: [employer] Asaad on 11-01-2022 AST [Catalytic activity/Vol] 66 U/L 10-42 [facility] Serum or plasma non-glucuron idated bilirubin measurement (mass/volume)Ordered By: [employer] on 11-01-2022 Bilirubin.indirect [Mass/Vol] 0.5 mg/dL [facility] Serum or plasma total biliru bin measurement (mass/volume)Ordered By: [employer] Asaad on 11-01-2022 Bilirubin [Mass/Vol] 0.6 mg/dL 0.3-1.[address] [facility] [address] ABDOMEN WO/W CONon 2022 CT [...] WILSON Date: 2022-10-17 08:23 Normal [facility] AMMONIAon 10-09-2022 Ammonia (P) [Moles/Vol] 10 umol/L Critically low 11-32 [facility] Comment on above: Performed By: #### A MY #### [facility] [address] [place] [address] Dr. Ayden Cam AMYLASEon 10-09-2022 Amylase [Catalytic activity/Vol] 144 U/L Critically high 25-115 [facility] Comment on above: Performed By: #### L IPA #### [facility] [address] [place] [address] Dr. Ayden Cam CBC AUTO DIFFon 10-09-2022 BASO # 0.0 103/ul Normal 0.0-0.1 [facility] Comment on above: Performed By: #### C BC #### [facility] [address] [place] [address] Dr. Ayden Cam Basophils/100 WBC (Bld) 0.2 % Normal 0.2-2.0 [facility] Comment on above: Performed By: #### C BC #### [facility] [address] [place] [address] Dr. Ayden Cam EO # 0.2 103/ul Normal 0.0-0.7 [facility] Comment on above: Performed By: #### C BC #### [facility] [address] [place] [address] Dr. Ayden Cam Eosinophils/100 WBC (Bld) 3.3 % Normal 0.9-7.0 [facility] Comment on above: Performed By: #### C BC #### [facility] [address] [place] [address] Dr. Ayden Cam Erythrocyte distribution width (RBC) [Ratio] 12.1 % Normal 11.0-15.0 [facility] Comment on above: Performed By: #### C BC #### [facility] [address] [place] [address] Dr. Ayden Cam Hematocrit (Bld) [Volume fraction] 40.0 % Normal 36.0-48.0 [facility] Comment on above: Performed By: #### C BC #### [facility] [address] [place] [address] Dr. Ayden Cam Hemoglobin (Bld) [Mass/Vol] 14.2 g/dL Normal 12.0-16.0 [facility] Comment on above: Performed By: #### C BC #### [facility] [address] [place] [address] Dr. Ayden aCm IG # 0.01 10e3/ul Normal 0.00-0.03 [facility] Comment on above: Performed By: #### C BC #### [facility] [address] [place] [address] Dr. Ayden Cam IG % 0.2 % Normal 0.0-0.5 [facility] Comment on above: Performed By: #### C BC #### [facility] [address] [place] [address] Dr. Ayden Cam LYMPH # 1.5 103/ul Normal 1.2-3.8 [facility] Comment on above: Performed By: #### C BC #### [facility] [address] [place] [address] Dr. Ayden Cam Lymphocytes/100 WBC (Bld) 24.2 % Normal 20.5-60.0 [facility] Comment on above: Performed By: #### C BC #### [facility] [address] [place] [address] Dr. Ayden Cam MANUAL DIFF REQ NO Normal [facility] Comment on above: Performed By: #### C BC #### [facility] [address] [place] [address] Dr. Ayden Cam MCH (RBC) [Entitic mass] 30.0 pg Normal 26.7-34.0 [facility] Comment on above: Performed By: #### C BC #### [facility] [address] [place] [address] Dr. Ayden Cam MCHC (RBC) [Mass/Vol] 35.5 g/dL Critically high 29.9-35.2 [facility] Comment on above: Performed By: #### C BC #### [facility] [address] [place] [address] Dr. Ayden Cam MCV (RBC) [Entitic vol] 84.4 fL Normal 81.0-99.0 [facility] Comment on above: Performed By: #### C BC #### [facility] [address] [place] [address] Dr. Ayden Cam MONO # 0.6 103/ul Normal 0.3-0.8 [facility] Comment on above: Performed By: #### C BC #### [facility] [address] [place] [address] Dr. Ayden Cam Monocytes/100 WBC (Bld) 10.3 % Normal 1.7-12.0 [facility] Comment on above: Performed By: #### C BC #### [facility] [address] [place] [address] Dr. Ayden Cam NEUT # 3.7 103/ul Normal 1.4-6.5 [facility] Comment on above: Performed By: #### C BC #### [facility] [address] [place] [address] Dr. Ayden Cam Neutrophils/100 WBC (Bld) 61.8 % Normal 43.0-75.0 [facility] Comment on above: Performed By: #### C BC #### [facility] [address] [place] [address] [address] Ayden Cam Platelet mean volume (Bld) [Entitic vol] 9.0 fL Critically low 9.5-13.5 [facility] Comment on above: Performed By: #### C BC #### [facility] [address] [place] [address] Dr. Ayden Cam PLT 191 103/ul Normal 150-450 [facility] Comment on above: Performed By: #### C BC #### [facility] [address] [place] [address] Dr. Ayden Cam RBC 4.74 106/ul Normal 4.20-5.40 [facility] Comment on above: Performed By: #### C BC #### [facility] [address] [place] [address] Dr. Ayden Cam WBC 6.0 103/ul Normal 4.0-11.0 [facility] Comment on above: Performed By: #### C BC #### [facility] [address] [place] [address] Dr. Ayden Cam LIPASEon 10-09-2022 Lipase [Catalytic activity/Vol] 168.0 U/L Normal 73.0-393.0 [facility] Comment on above: Performed By: #### L ACT #### [facility] [address] [place] [address] Dr. Ayden Cam PROF 14(COMP METB)on 023 Albumin [Mass/Vol] 3.6 g/dL Normal 3.4-5.0 [facility] Comment on above: Performed By: #### L IPA #### [facility] [address] [place] [address] Dr. Ayden Cam Albumin/Globulin [Mass ratio] 1.1 {ratio} Normal [facility] Comment on above: Performed By: #### L IPA #### [facility] [address] [place] [address] Dr. Ayden Cam ALP [Catalytic activity/Vol] 93 U/L Normal 46-116 [facility] Comment on above: Performed By: #### L IPA #### [facility] [address] [place] [address] [address] Ayden Cam ALT [Catalytic activity/Vol] 52 U/L Normal 14-59 [facility] Comment on above: Performed By: #### L IPA #### [facility] [address] [place] [address] [address] Ayden Cam Anion gap [Moles/Vol] 10.2 mmol/L Normal [facility] Comment on above: Performed By: #### L IPA #### [facility] [address] [place] [address] [address] Ayden Cam AST [Catalytic activity/Vol] 33 U/L Normal 15-37 [facility] Comment on above: Performed By: #### L IPA #### [facility] [address] [place] [address] [address] Ayden Cam Bilirubin [Mass/Vol] 0.3 mg/dL Normal 0.2-1.0 [facility] Comment on above: Performed By: #### L IPA #### [facility] [address] [place] [address] [address] Ayden Cam Calcium [Mass/Vol] 9.4 mg/dL Normal 8.5-10.1 [facility] Comment on above: Performed By: #### L IPA #### [facility] [address] [place] [address] [address] Ayden Cam Chloride [Moles/Vol] 99 mmol/L Normal 98-107 [facility] Comment on above: Performed By: #### L IPA #### [facility] [address] [place] [address] [address] Ayden Cam CO2 [Moles/Vol] 33.7 mmol/L Critically high 21.0-32.0 [facility] Comment on above: Performed By: #### L IPA #### [facility] [address] [place] [address] [address] Ayden Cam Creatinine [Mass/Vol] 0.62 mg/dL Normal 0.55-1.02 [facility] Comment on above: Performed By: #### L IPA #### [facility] [address] [place] [address] [address] Ayden Cam EGFR-AF SYRIAN >60 Normal >=60 [facility] Comment on above: Performed By: #### L IPA #### [facility] [address] [place] [address] Dr. Ayden Cam EGFR-NON AF SYRIAN >60 Normal >=60 [facility] Comment on above: Performed By: #### L IPA #### [facility] [address] [place] [address] [address] Ayden Cam Globulin (S) [Mass/Vol] 3.4 g/dL Normal [facility] Comment on above: Performed By: #### L IPA #### [facility] [address] [place] [address] Dr. Ayden Cam Glucose [Mass/Vol] 105 mg/dL Normal 74-106 [facility] [facility] Comment on above: Performed By: #### L IPA #### [facility] [address] [place] [address] Dr. Ayden Cam Potassium [Moles/Vol] 3.9 mmol/L Normal 3.5-5.1 [facility] Comment on above: Performed By: #### L IPA #### [facility] [address] [place] [address] Dr. Ayden Cam Protein [Mass/Vol] 7.0 g/dL Normal 6.4-8.2 [facility] Comment on above: Performed By: #### L IPA #### [facility] [address] [place] [address] Dr. Ayden Cam Sodium [Moles/Vol] 139 mmol/L Normal 136-145 [facility] Comment on above: Performed By: #### L IPA #### [facility] [address] [place] [address] Dr. Ayden Cam Urea nitrogen [Mass/Vol] 28.0 mg/dL Critically high 7.0-18.0 [facility] Comment on above: Performed By: #### L IPA #### [facility] [address] [place] [address] Dr. Ayden Cam Urea nitrogen/Creatinine [Mass ratio] 45.2 mg/mg Normal [facility] Comment on above: Performed By: #### L IPA #### [facility] [address] [place] [address] Dr. Ayden Cam AMMONIAon 10-06-2022 Ammonia (P) [Moles/Vol] 16 umol/L Normal 11-32 [facility] Comment on above: Performed By: #### A MM #### [facility] [address] [place] [address] Dr. Ayden Cam AMYLASEon 10-06-2022 Amylase [Catalytic activity/Vol] 189 U/L Critically high 25-115 [facility] Comment on above: Performed By: #### L IPA #### [facility] [address] [place] [address] Dr. Ayden Cam CBC AUTO DIFFon 10-06-2022 BASO # 0.0 103/ul Normal 0.0-0.1 [facility] Comment on above: Performed By: #### C BC #### [facility] [address] [place] [address] Dr. Ayden Cam Basophils/100 WBC (Bld) 0.2 % Normal 0.2-2.0 [facility] Comment on above: Performed By: #### C BC #### [facility] [address] [place] [address] Dr. Ayden Cam EO # 0.3 103/ul Normal 0.0-0.7 [facility] Comment on above: Performed By: #### C BC #### [facility] [address] [place] [address] Dr. Ayden Cam Eosinophils/100 WBC (Bld) 5.2 % Normal 0.9-7.0 [facility] Comment on above: Performed By: #### C BC #### [facility] [address] [place] [address] Dr. Ayden Cam Erythrocyte distribution width (RBC) [Ratio] 12.3 % Normal 11.0-15.0 [facility] Comment on above: Performed By: #### C BC #### [facility] [address] [place] [address] Dr. Ayden Cam Hematocrit (Bld) [Volume fraction] 36.9 % Normal 36.0-48.0 [facility] Comment on above: Performed By: #### C BC #### [facility] [address] [place] [address] Dr. Ayden Cam Hemoglobin (Bld) [Mass/Vol] 12.4 g/dL Normal 12.0-16.0 [facility] Comment on above: Performed By: #### C BC #### [facility] [address] [place] [address] Dr. Ayden Cam IG # 0.01 10e3/ul Normal 0.00-0.03 [facility] Comment on above: Performed By: #### C BC #### [facility] [address] [place] [address] Dr. Ayden Cam IG % 0.2 % Normal 0.0-0.5 [facility] Comment on above: Performed By: #### C BC #### [facility] [address] [place] [address] Dr. Ayden Cam LYMPH # 1.8 103/ul Normal 1.2-3.8 [facility] Comment on above: Performed By: #### C BC #### [facility] [address] [place] [address] Dr. Ayden Cam Lymphocytes/100 WBC (Bld) 31.3 % Normal 20.5-60.0 [facility] Comment on above: Performed By: #### C BC #### [facility] [address] [place] [address] Dr. Ayden Cam MANUAL DIFF REQ NO Normal [facility] Comment on above: Performed By: #### C BC #### [facility] [address] [place] [address] Dr. Ayden Cam MCH (RBC) [Entitic mass] 30.0 pg Normal 26.7-34.0 [facility] Comment on above: Performed By: #### C BC #### [facility] [address] [place] [address] Dr. Ayden Cam MCHC (RBC) [Mass/Vol] 33.6 g/dL Normal 29.9-35.2 [facility] Comment on above: Performed By: #### C BC #### [facility] [address] [address] [address] Ayden Cam MCV (RBC) [Entitic vol] 89.1 fL Normal 81.0-99.0 [facility] Comment on above: Performed By: #### C BC #### [facility] [address] [address] [address] Ayden Cam MONO # 0.6 103/ul Normal 0.3-0.8 [facility] Comment on above: Performed By: #### C BC #### [facility] [address] [place] [address] Dr. Ayden Cam Monocytes/100 WBC (Bld) 10.1 % Normal 1.7-12.0 [facility] Comment on above: Performed By: #### C BC #### [facility] [address] [place] [address] Dr. Ayden Cma NEUT # 3.1 103/ul Normal 1.4-6.5 [facility] Comment on above: Performed By: #### C BC #### [facility] [address] [place] [address] Dr. Ayden Cam Neutrophils/100 WBC (Bld) 53.0 % Normal 43.0-75.0 [facility] Comment on above: Performed By: #### C BC #### [facility] [address] [address] [address] Ayden Cam Platelet mean volume (Bld) [Entitic vol] 9.4 fL Critically low 9.5-13.5 [facility] Comment on above: Performed By: #### C BC #### [facility] [address] [place] [address] Dr. Ayden Cam PLT 153 103/ul Normal 150-450 [facility] Comment on above: Performed By: #### C BC #### [facility] [address] [place] [address] Dr. Ayden Cam RBC 4.14 106/ul Critically low 4.20-5.40 [facility] Comment on above: Performed By: #### C BC #### [facility] [address] [place] [address] Dr. Ayden Cam WBC 5.8 103/ul Normal 4.0-11.0 [facility] Comment on above: Performed By: #### C BC #### [facility] [address] [place] [address] Dr. Ayden Cam LIPASEon 10-06-2022 Lipase [Catalytic activity/Vol] 166.0 U/L Normal 73.0-393.0 [facility] Comment on above: Performed By: #### L IPA #### [facility] [address] [place] [address] Dr. Ayden Cam LIVER PROFILEon 10-06-2022 Albumin [Mass/Vol] 3.2 g/dL Critically low 3.4-5.0 [facility] Comment on above: Performed By: #### L IPA #### [facility] [address] [place] [address] Dr. Ayden Cam Albumin/Globulin [Mass ratio] 1.3 {ratio} Normal [facility] Comment on above: Performed By: #### L IPA #### [facility] [address] [place] [address] Dr. Ayden Cam ALP [Catalytic activity/Vol] 88 U/L Normal 46-116 [facility] Comment on above: Performed By: #### L IPA #### [facility] [address] [place] [address] Dr. Ayden Cam ALT [Catalytic activity/Vol] 66 U/L Critically high 14-59 [facility] Comment on above: Performed By: #### L IPA #### [facility] [address] [place] [address] Dr. Ayden Cam AST [Catalytic activity/Vol] 39 U/L Critically high 15-37 [facility] Comment on above: Performed By: #### L IPA #### [facility] [address] [place] [address] Dr. Ayden Cam BILI, CONJUGATED 0.1 mg/dL Normal 0.0-0.2 [facility] Comment on above: Performed By: #### L IPA #### [facility] [address] [place] [address] Dr. Ayden Cam Bilirubin [Mass/Vol] 0.4 mg/dL Normal 0.2-1.0 [facility] Comment on above: Performed By: #### L IPA #### [facility] [address] [place] [address] Dr. Ayden Cam Globulin (S) [Mass/Vol] 2.4 g/dL Normal [facility] Comment on above: Performed By: #### L IPA #### [facility] [address] [place] [address] Dr. Ayden Cam Protein [Mass/Vol] 5.6 g/dL Critically low 6.4-8.2 [facility] Comment on above: Performed By: #### L IPA #### [facility] [address] [place] [address] Dr. Ayden Cam PROF CHEM 8 (BAS METB)on Anion gap [Moles/Vol] 6.8 mmol/L Normal [facility] Comment on above: Performed By: #### L IPA #### [facility] [address] [place] [address] Dr. Ayden Cam Calcium [Mass/Vol] 8.6 mg/dL Normal 8.5-10.1 [facility] Comment on above: Performed By: #### L IPA #### [facility] [address] [place] [address] Dr. Ayden Cam Chloride [Moles/Vol] 102 mmol/L Normal 98-107 [facility] Comment on above: Performed By: #### L IPA #### [facility] [address] [place] [address] Dr. Ayden Cam CO2 [Moles/Vol] 32.6 mmol/L Critically high 21.0-32.0 [facility] Comment on above: Performed By: #### L IPA #### [facility] [address] [place] [address] Dr. Ayden Cam Creatinine [Mass/Vol] 0.61 mg/dL Normal 0.55-1.02 [facility] Comment on above: Performed By: #### L IPA #### [facility] [address] [address] [address] Ayden Cam EGFR-AF SYRIAN >60 Normal >=60 [facility] Comment on above: Performed By: #### L IPA #### [facility] [address] [address] [address] Ayden Cam EGFR-NON AF SYRIAN >60 Normal >=60 [facility] Comment on above: Performed By: #### L IPA #### [facility] [address] [address] [address] Ayden Cam Glucose [Mass/Vol] 91 mg/dL Normal 74-106 [facility] Comment on above: Performed By: #### L IPA #### [facility] [address] [address] [address] Ayden Cam Potassium [Moles/Vol] 3.4 mmol/L Critically low 3.5-5.1 [facility] Comment on above: Performed By: #### L IPA #### [facility] [address] [address] [address] Ayden Cam Sodium [Moles/Vol] 138 mmol/L Normal 136-145 [facility] Comment on above: Performed By: #### L IPA #### [facility] [address] [address] [address] Ayden Cam Urea nitrogen [Mass/Vol] 13.0 mg/dL Normal 7.0-18.0 [facility] Comment on above: Performed By: #### L IPA #### [facility] [address] [address] [address] Ayden Cam Urea nitrogen/Creatinine [Mass ratio] 21.3 mg/mg Normal [facility] Comment on above: Performed By: #### L IPA #### [facility] [address] [address] [address] Ayden Cam AMMONIAon 10-05-2022 Ammonia (P) [Moles/Vol] 10 umol/L Critically low 11-32 [facility] Comment on above: Performed By: #### A MM #### [facility] [address] [place] [address] Dr. Ayden Cam AMYLASEon 10-05-2022 Amylase [Catalytic activity/Vol] 109 U/L Normal 25-115 [facility] Comment on above: Performed By: #### A MY #### [facility] [address] [place] [address] Dr. Ayden Cam CBC AUTO DIFFon 10-05-2022 BASO # 0.0 103/ul Normal 0.0-0.1 [facility] Comment on above: Performed By: #### L IPA #### [facility] [address] [place] [address] Dr. Ayden Cam Basophils/100 WBC (Bld) 0.3 % Normal 0.2-2.0 [facility] Comment on above: Performed By: #### L IPA #### [facility] [address] [place] [address] Dr. Ayden Cam EO # 0.3 103/ul Normal 0.0-0.7 [facility] Comment on above: Performed By: #### L IPA #### [facility] [address] [place] [address] Dr. Ayden Cam Eosinophils/100 WBC (Bld) 4.3 % Normal 0.9-7.0 [facility] Comment on above: Performed By: #### L IPA #### [facility] [address] [place] [address] Dr. Ayden Cam Erythrocyte distribution width (RBC) [Ratio] 12.2 % Normal 11.0-15.0 [facility] Comment on above: Performed By: #### L IPA #### [facility] [address] [place] [address] Dr. Ayden Cam Hematocrit (Bld) [Volume fraction] 38.9 % Normal 36.0-48.0 [facility] Comment on above: Performed By: #### L IPA #### [facility] [address] [place] [address] Dr. Ayden Cam Hemoglobin (Bld) [Mass/Vol] 12.8 g/dL Normal 12.0-16.0 [facility] Comment on above: Performed By: #### L IPA #### [facility] [address] [place] [address] Dr. Ayden Cam IG # 0.01 10e3/ul Normal 0.00-0.03 [facility] Comment on above: Performed By: #### L IPA #### [facility] [address] [place] [address] Dr. Ayden Cam IG % 0.2 % Normal 0.0-0.5 [facility] Comment on above: Performed By: #### L IPA #### [facility] [address] [place] [address] Dr. Ayden Cam LYMPH # 1.9 103/ul Normal 1.2-3.8 [facility] Comment on above: Performed By: #### L IPA #### [facility] [address] [place] [address] Dr. Ayden Cam Lymphocytes/100 WBC (Bld) 31.4 % Normal 20.5-60.0 [facility] Comment on above: Performed By: #### L IPA #### [facility] [address] [place] [address] Dr. Ayden Cam MANUAL DIFF REQ NO Normal [facility] Comment on above: Performed By: #### L IPA #### [facility] [address] [place] [address] Dr. Ayden Cam MCH (RBC) [Entitic mass] 29.6 pg Normal 26.7-34.0 [facility] Comment on above: Performed By: #### L IPA #### [facility] [address] [place] [address] Dr. Ayden Cam MCHC (RBC) [Mass/Vol] 32.9 g/dL Normal 29.9-35.2 [facility] Comment on above: Performed By: #### L IPA #### [facility] [address] [place] [address] Dr. Ayden Cam MCV (RBC) [Entitic vol] 89.8 fL Normal 81.0-99.0 [facility] Comment on above: Performed By: #### L IPA #### [facility] [address] [address] [address] Ayden Cam MONO # 0.6 103/ul Normal 0.3-0.8 [facility] Comment on above: Performed By: #### L IPA #### [facility] [address] [address] [address] Ayden Cam Monocytes/100 WBC (Bld) 10.1 % Normal 1.7-12.0 [facility] Comment on above: Performed By: #### L IPA #### [facility] [address] [address] [address] Ayden Cam NEUT # 3.2 103/ul Normal 1.4-6.5 [facility] Comment on above: Performed By: #### L IPA #### [facility] [address] [place] [address] Dr. Ayden Cam Neutrophils/100 WBC (Bld) 53.7 % Normal 43.0-75.0 [facility] Comment on above: Performed By: #### L IPA #### [facility] [address] [address] [address] Ayden Cam Platelet mean volume (Bld) [Entitic vol] 9.7 fL Normal 9.5-13.5 [facility] Comment on above: Performed By: #### L IPA #### [facility] [address] [address] [address] Ayden Cam PLT 168 103/ul Normal 150-450 [facility] Comment on above: Performed By: #### L IPA #### [facility] [address] [address] [address] Ayden Cam RBC 4.33 106/ul Normal 4.20-5.40 [facility] Comment on above: Performed By: #### L IPA #### [facility] [address] [address] [address] Ayden Cam WBC 6.0 103/ul Normal 4.0-11.0 [facility] Comment on above: Performed By: #### L IPA #### [facility] [address] [place] [address] Dr. Ayden Cam LIPASEon 10-05-2022 Lipase [Catalytic activity/Vol] 151.0 U/L Normal 73.0-393.0 [facility] Comment on above: Performed By: #### L IPA #### [facility] [address] [place] [address] Dr. Ayden Cam LIVER PROFILEon 10-05-2022 Albumin [Mass/Vol] 3.2 g/dL Critically low 3.4-5.0 [facility] Comment on above: Performed By: #### L ACT #### [facility] [address] [place] [address] Dr. Ayden Cam Albumin/Globulin [Mass ratio] 1.1 {ratio} Normal [facility] Comment on above: Performed By: #### L ACT #### [facility] [address] [place] [address] Dr. Ayden Cam ALP [Catalytic activity/Vol] 82 U/L Normal 46-116 [facility] Comment on above: Performed By: #### L ACT #### [facility] [address] [place] [address] Dr. Ayden Cam ALT [Catalytic activity/Vol] 70 U/L Critically high 14-59 [facility] Comment on above: Performed By: #### L ACT #### [facility] [address] [place] [address] Dr. Ayden Cam AST [Catalytic activity/Vol] 36 U/L Normal 15-37 [facility] Comment on above: Performed By: #### L ACT #### [facility] [address] [place] [address] Dr. Ayden Cam BILI, CONJUGATED 0.1 mg/dL Normal 0.0-0.2 [facility] Comment on above: Performed By: #### L ACT #### [facility] [address] [place] [address] Dr. Ayden Cam Bilirubin [Mass/Vol] 0.3 mg/dL Normal 0.2-1.0 [facility] Comment on above: Performed By: #### L ACT #### [facility] [address] [address] [address] Ayden Cam Globulin (S) [Mass/Vol] 3.0 g/dL Normal [facility] Comment on above: Performed By: #### L ACT #### [facility] [address] [address] [address] Ayden Cam Protein [Mass/Vol] 6.2 g/dL Critically low 6.4-8.2 [facility] Comment on above: Performed By: #### L ACT #### [facility] [address] [address] [address] Ayden Cam PROF CHEM 8 (BAS METB)on Anion gap [Moles/Vol] 9.5 mmol/L Normal [facility] Comment on above: Performed By: #### B MP #### [facility] [address] [place] [address] Dr. Ayden Cam Calcium [Mass/Vol] 8.9 mg/dL Normal 8.5-10.1 [facility] Comment on above: Performed By: #### B MP #### [facility] [address] [place] [address] Dr. Ayden Cam Chloride [Moles/Vol] 105 mmol/L Normal 98-107 [facility] Comment on above: Performed By: #### B MP #### [facility] [address] [place] [address] Dr. Ayden Cam CO2 [Moles/Vol] 29.6 mmol/L Normal 21.0-32.0 [facility] Comment on above: Performed By: #### B MP #### [facility] [address] [place] [address] Dr. Ayden Cam Creatinine [Mass/Vol] 0.56 mg/dL Normal 0.55-1.02 [facility] Comment on above: Performed By: #### B MP #### [facility] [address] [place] [address] Dr. Ayden Cam EGFR-AF SYRIAN >60 Normal >=60 [facility] Comment on above: Performed By: #### B MP #### [facility] [address] [address] [address] Ayden Cam EGFR-NON AF SYRIAN >60 Normal >=60 [facility] Comment on above: Performed By: #### B MP #### [facility] [address] [address] [address] Ayden Cam Glucose [Mass/Vol] 88 mg/dL Normal 74-106 [facility] Comment on above: Performed By: #### B MP #### [facility] [address] [address] [address] Ayden Cam Potassium [Moles/Vol] 4.1 mmol/L Normal 3.5-5.1 [facility] Comment on above: Performed By: #### B MP #### [facility] [address] [address] [address] Ayden Cam Sodium [Moles/Vol] 140 mmol/L Normal 136-145 [facility] Comment on above: Performed By: #### B MP #### [facility] [address] [place] [address] Dr. Ayden Cam Urea nitrogen [Mass/Vol] 15.0 mg/dL Normal 7.0-18.0 [facility] Comment on above: Performed By: #### B MP #### [facility] [address] [place] [address] Dr. Ayden Cam Urea nitrogen/Creatinine [Mass ratio] 26.8 mg/mg Normal [facility] Comment on above: Performed By: #### B MP #### [facility] [address] [place] [address] Dr. Ayden Cam US Jhony 10-05-2022 US [...] TORIBIO Date: 2022-10-05 09:52 Normal [facility] XR KUB 1 VIEWon 10-05-2022 XR [...] TORIBIO Date: 2022-10-05 09:55 Normal [facility] AMYLASEon 10-04-2022 Amylase [Catalytic activity/Vol] 124 U/L Critically high 25-115 [facility] Comment on above: Performed By: #### L IPA, COLE, CMP #### [facility] [address] [place] [address] Dr. Ayden Cam CBC AUTO DIFFon 10-04-2022 BASO # 0.0 103/ul Normal 0.0-0.1 [facility] Comment on above: Performed By: #### L IPA #### [facility] [address] [address] [address] Ayden Cam Basophils/100 WBC (Bld) 0.3 % Normal 0.2-2.0 [facility] Comment on above: Performed By: #### L IPA #### [facility] [address] [place] [address] Dr. Ayden Cam EO # 0.2 103/ul Normal 0.0-0.7 [facility] Comment on above: Performed By: #### L IPA #### [facility] [address] [place] [address] Dr. Ayden Cam Eosinophils/100 WBC (Bld) 2.9 % Normal 0.9-7.0 [facility] Comment on above: Performed By: #### L IPA #### [facility] [address] [place] [address] Dr. Ayden Cam Erythrocyte distribution width (RBC) [Ratio] 12.3 % Normal 11.0-15.0 [facility] Comment on above: Performed By: #### L IPA #### [facility] [address] [place] [address] Dr. Ayden Cam Hematocrit (Bld) [Volume fraction] 42.0 % Normal 36.0-48.0 [facility] Comment on above: Performed By: #### L IPA #### [facility] [address] [place] [address] Dr. Ayden Cam Hemoglobin (Bld) [Mass/Vol] 14.3 g/dL Normal 12.0-16.0 [facility] Comment on above: Performed By: #### L IPA #### [facility] [address] [place] [address] Dr. Ayden Cam IG # 0.02 10e3/ul Normal 0.00-0.03 [facility] Comment on above: Performed By: #### L IPA #### [facility] [address] [place] [address] Dr. Ayden Cam IG % 0.3 % Normal 0.0-0.5 [facility] Comment on above: Performed By: #### L IPA #### [facility] [address] [place] [address] Dr. Ayden Cam LYMPH # 1.7 103/ul Normal 1.2-3.8 [facility] Comment on above: Performed By: #### L IPA #### [facility] [address] [place] [address] Dr. Ayden Cam Lymphocytes/100 WBC (Bld) 22.5 % Normal 20.5-60.0 [facility] Comment on above: Performed By: #### L IPA #### [facility] [address] [place] [address] Dr. Ayden Cam MANUAL DIFF REQ NO Normal [facility] Comment on above: Performed By: #### L IPA #### [facility] [address] [place] [place] [address] Dr. Ayden Cam MCH (RBC) [Entitic mass] 30.1 pg Normal 26.7-34.0 [facility] Comment on above: Performed By: #### L IPA #### [facility] [address] [place] [address] Dr. Ayden Cam MCHC (RBC) [Mass/Vol] 34.0 g/dL Normal 29.9-35.2 [facility] Comment on above: Performed By: #### L IPA #### [facility] [address] [place] [address] Dr. Ayden Cam MCV (RBC) [Entitic vol] 88.4 fL Normal 81.0-99.0 [facility] Comment on above: Performed By: #### L IPA #### [facility] [address] [place] [address] Dr. Ayden Cam MONO # 0.5 103/ul Normal 0.3-0.8 [facility] Comment on above: Performed By: #### L IPA #### [facility] [address] [place] [address] Dr. Ayden Cam Monocytes/100 WBC (Bld) 6.0 % Normal 1.7-12.0 [facility] Comment on above: Performed By: #### L IPA #### [facility] [address] [place] [address] Dr. Ayden Cam NEUT # 5.2 103/ul Normal 1.4-6.5 [facility] Comment on above: Performed By: #### L IPA #### [facility] [address] [place] [address] Dr. Ayden Cam Neutrophils/100 WBC (Bld) 68.0 % Normal 43.0-75.0 [facility] Comment on above: Performed By: #### L IPA #### [facility] [address] [address] [address] Ayden Cam Platelet mean volume (Bld) [Entitic vol] 9.6 fL Normal 9.5-13.5 [facility] Comment on above: Performed By: #### L IPA #### [facility] [address] [place] [address] Dr. Ayden Cam PLT 183 103/ul Normal 150-450 [facility] Comment on above: Performed By: #### L IPA #### [facility] [address] [place] [address] Dr. Ayden Cam RBC 4.75 106/ul Normal 4.20-5.40 [facility] Comment on above: Performed By: #### L IPA #### [facility] [address] [place] [address] Dr. yAden Cam WBC 7.6 103/ul Normal 4.0-11.0 [facility] Comment on above: Performed By: #### L IPA #### [facility] [address] [place] [address] Dr. Ayden Cam [facility]on SARS-CoV-2 (COVID-19) RNA LOWELL+probe Ql (Unsp spec) Not detected Normal NOT DETECTED [facility] Comment on above: Result Comment: When [...] for this test is supported by the [place] of Health and Human Service's declaration that [...] Performed By: #### L IPA #### [facility] [address] [place] [address] Dr. Ayden Cam ER URINE PROFILEon 3 Bilirubin Ql (U) Negative Normal NEGATIVE [facility] Comment on above: Performed By: #### L ACT #### [facility] [address] [place] [address] Dr. Ayden Cam Clarity (U) CLEAR Normal CLEAR [facility] Comment on above: Performed By: #### L ACT #### [facility] [address] [place] [address] Dr. Ayden Cam Color (U) LT. YELLOW Normal YELLOW [facility] Comment on above: Performed By: #### L ACT #### [facility] [address] [place] [address] Dr. Ayden Cam ERUAHD A micrscopic examina tion will be performed if indicated. Normal [facility] Comment on above: Performed By: #### L ACT #### [facility] [address] [place] [address] Dr. Ayden Cam Glucose Ql (U) Negative Normal NEGATIVE [facility] Comment on above: Performed By: #### L ACT #### [facility] [address] [place] [address] Dr. Ayden Cam Hemoglobin Ql (U) Negative Normal NEGATIVE [facility] Comment on above: Performed By: #### L ACT #### [facility] [address] [place] [address] Dr. Ayden Cam Ketones Ql (U) Negative Normal NEGATIVE [facility] Comment on above: Performed By: #### L ACT #### [facility] [address] [place] [address] Dr. Ayden Cam LEUKOCYTES Negative Normal NEGATIVE [facility] Comment on above: Performed By: #### L ACT #### [facility] [address] [place] [address] Dr. Ayden Cam Nitrite Ql (U) Negative Normal NEGATIVE [facility] Comment on above: Performed By: #### L ACT #### [facility] [address] [place] [address] Dr. Ayden Cam pH (U) 8.5 [pH] Normal 5-9 [facility] Comment on above: Performed By: #### L ACT #### [facility] [address] [place] [address] Dr. Ayden Cam SPEC GRAVITY 1.015 Normal 1.005-<=1.02 5 [facility] Comment on above: Performed By: #### L ACT #### [facility] [address] [place] [address] Dr. Ayden Cam UA PROTEIN Negative Normal NEGATIVE/ TRACE [facility] Comment on above: Performed By: #### L ACT #### [facility] [address] [place] [address] Dr. Ayden Cam UR MICRO IND NOT INDICATED Normal [facility] Comment on above: Performed By: #### L ACT #### [facility] [address] [place] [address] Dr. Ayden Cam Urobilinogen Qn (U) 0.2 {Peggy'U}/dL Normal 0.2 - 1. 0 [facility] Comment on above: Performed By: #### L ACT #### [facility] [address] [place] [address] Dr. Ayden Cam LACTATE/LACTIC ACIDon 2022 Lactate [Moles/Vol] 0.8 mmol/L Normal 0.4-1.9 [facility] Comment on above: Performed By: #### L ACT #### [facility] [address] [place] [address] Dr. Ayden Cam LIPASEon 10-04-2022 Lipase [Catalytic activity/Vol] 170.0 U/L Normal 73.0-393.0 [facility] Comment on above: Performed By: #### L ACT #### [facility] [address] [place] [address] Dr. Ayden Cam PROF 14(COMP METB)on 023 Albumin [Mass/Vol] 3.8 g/dL Normal 3.4-5.0 [facility] Comment on above: Performed By: #### L ACT #### [facility] [address] [address] [address] Ayden Cam Albumin/Globulin [Mass ratio] 1.1 {ratio} Normal [facility] Comment on above: Performed By: #### L ACT #### [facility] [address] [address] [address] Ayden Cam ALP [Catalytic activity/Vol] 101 U/L Normal 46-116 [facility] Comment on above: Performed By: #### L ACT #### [facility] [address] [address] [address] Ayden Cam ALT [Catalytic activity/Vol] 94 U/L Critically high 14-59 [facility] Comment on above: Performed By: #### L ACT #### [facility] [address] [place] [address] Dr. Ayden Cam Anion gap [Moles/Vol] 11.1 mmol/L Normal [facility] Comment on above: Performed By: #### L ACT #### [facility] [address] [place] [address] Dr. Ayden Cam AST [Catalytic activity/Vol] 59 U/L Critically high 15-37 [facility] Comment on above: Performed By: #### L ACT #### [facility] [address] [place] [address] Dr. Ayden Cam Bilirubin [Mass/Vol] 0.3 mg/dL Normal 0.2-1.0 [facility] Comment on above: Performed By: #### L ACT #### [facility] [address] [address] [address] Ayden Cam Calcium [Mass/Vol] 9.5 mg/dL Normal 8.5-10.1 [facility] Comment on above: Performed By: #### L ACT #### [facility] [address] [place] [address] Dr. Ayden Cam Chloride [Moles/Vol] 99 mmol/L Normal 98-107 [facility] Comment on above: Performed By: #### L ACT #### [facility] [address] [place] [address] Dr. Ayden Cam CO2 [Moles/Vol] 29.7 mmol/L Normal 21.0-32.0 [facility] Comment on above: Performed By: #### L ACT #### [facility] [address] [address] [address] Ayden Cam Creatinine [Mass/Vol] 0.61 mg/dL Normal 0.55-1.02 [facility] Comment on above: Performed By: #### L ACT #### [facility] [address] [address] [address] Ayden Cam EGFR-AF SYRIAN >60 Normal >=60 [facility] Comment on above: Performed By: #### L ACT #### [facility] [address] [place] [address] Dr. Ayden Cam EGFR-NON AF SYRIAN >60 Normal >=60 [facility] Comment on above: Performed By: #### L ACT #### [facility] [address] [address] [address] Ayden Cam Globulin (S) [Mass/Vol] 3.4 g/dL Normal [facility] Comment on above: Performed By: #### L ACT #### [facility] [address] [address] [address] Ayden Cam Glucose [Mass/Vol] 111 mg/dL Critically high 74-106 T [facility] Comment on above: Performed By: #### L ACT #### [facility] [address] [address] [address] Ayden Cam Potassium [Moles/Vol] 3.8 mmol/L Normal 3.5-5.1 [facility] Comment on above: Performed By: #### L ACT #### [facility] [address] [address] [address] Ayden Cam Protein [Mass/Vol] 7.2 g/dL Normal 6.4-8.2 [facility] Comment on above: Performed By: #### L ACT #### [facility] [address] [address] [address] Ayden Cam Sodium [Moles/Vol] 136 mmol/L Normal 136-145 [facility] Comment on above: Performed By: #### L ACT #### [facility] [address] [address] [address] Ayden Cam Urea nitrogen [Mass/Vol] 23.0 mg/dL Critically high 7.0-18.0 [facility] Comment on above: Performed By: #### L ACT #### [facility] [address] [address] [address] Ayden Cam Urea nitrogen/Creatinine [Mass ratio] 37.7 mg/mg Normal [facility] Comment on above: Performed By: #### L ACT #### [facility] [address] [address] [address] Ayden Cam TROPONIN, HIGH SENSITIVITYon 10-04-2022 HSTROP 8.9 pg/mL Normal 4.0-51.3 [facility] Comment on above: Result Comment: CUT- OFF POINTS HAVE BEEN ESTABLISHED BASED ON THE FOURTH UNIVERSAL DEFINITIONS OF MYOCARDIAL INFARCTION. THE UPPER REFERENCE LIMIT (URL) OF TROPONIN, DEFINED THE 99TH PERCENTILE OF cTnI DISTRIBUTION IN A REFERENCE POPULATION, HAS BEEN CONFIRMED THE DECISION THRESHOLD FOR ND DIAGNOSIS. Performed By: #### L ACT #### [facility] [address] [place] [address] Dr. Ayden Cam LIPID PROFILEon 09-19-2022 CHOL-HDL RATIO NORM SEE BELOW Normal [facility] Comment on above: Result Comment: 3.3 - 4.4 LOW RISK 4.4 - 7.1 AVERAGE RISK 7.1 - 11.0 MODERATE RISK >11.0 HIGH RISK Performed By: #### L IPA #### [facility] [address] [place] [address] Dr. Ayden Cam Cholesterol [Mass/Vol] 116 mg/dL Normal <=200 [facility] Comment on above: Performed By: #### L IPA #### [facility] [address] [address] [address] Ayden Cam Cholesterol in HDL [Mass/Vol] 59 mg/dL Normal 40-60 [facility] Comment on above: Performed By: #### L IPA #### [facility] [address] [address] [address] Ayden Cam Cholesterol in LDL [Mass/Vol] 34.0 mg/dL Normal [facility] Comment on above: Performed By: #### L IPA #### [facility] [address] [address] [address] Ayden Cam Cholesterol.total/Cho lesterol in HDL [Mass ratio] 2.0 {ratio} Normal [facility] Comment on above: Performed By: #### L IPA #### [facility] [address] [address] [address] Ayden Cam HDL NORMAL > or = 60 mg/dl - LO W CARDIOVASCULAR RISK <40 mg/dl - HIGH CARDIOVASCULAR RISK Normal [facility] Comment on above: Performed By: #### L IPA #### [facility] [address] [place] [address] Dr. Ayden Cam LDL CALC NORMAL SEE BELOW Normal [facility] Comment on above: Result Comment: <100 mg/dl OPTIMAL 100 - 129 mg/dl NEAR OR ABOVE OPTIMAL 130 - 159 mg/dl BORDERLINE HIGH 160 - 189 mg/dl HIGH >190 mg/dl VERY HIGH Performed By: #### L IPA #### [facility] [address] [place] [address] Dr. Ayden Cam Triglyceride [Mass/Vol] 115 mg/dL Normal <=150 [facility] Comment on above: Performed By: #### L IPA #### [facility] [address] [place] [address] Dr. Ayden Cam VLDL CALC 23.0 mg/dL Normal [facility] Comment on above: Performed By: #### L IPA #### [facility] [address] [place] [address] Dr. Ayden Cam VITAMIN D 25 OHon 09-19-2022 VIT D 25-OH 89.3 ng/mL Normal [facility] Comment on above: Performed By: #### V ITAD #### [facility] [address] [place] [address] Dr. Ayden Cam VIT D RANGES SEE BELOW Normal [facility] Comment on above: Result Comment: <20 ng/mL Vit D deficient 20 - <30 ng/mL Vit D insufficient 30 - 100 ng/mL Vit D sufficient >100 ng/mL Potential Toxicity Performed By: #### V ITAD #### [facility] [address] [address] [address] Ayden Cam Office Visit (Cardiology)on 08-15-2022 Follow-up visit Diagnoses/Problems Assessed Atherosclerosis of coronary artery of [place] heart without angina pectoris (414.01) (I25.10) History of coronary artery bypass graft (V45.81) (Z95.1) Ischemic cardiomyopathy (414.8) (I25.5) Hyperlipidemia (272.4) (E78.5) Essential hypertension, benign (401.1) (I10) Never a smoker Overweight with body mass index (BMI) of 26 to 26.9 in adult (278.02,V85.22) (E66.3,Z68.26) Paroxysmal SVT (supraventricular tachycardia) (427.0) (I47.1) Orders Atherosclerosis of coronary artery of [place] heart without angina pectoris, Essential hypertension, benign, Hyperlipidemia Basic Metabolic Panel; Status:Active - Retrospective Authorization; Requested for:[id number]; Lipid Panel; Status:Active - Retrospective Authorization; Requested for:[id number]; Overweight with body mass index (BMI) of 26 to 26.9 in adult Healthy Weight Tips; Status:Complete - Retrospective Authorization; Done: [id number] Some eating tips that can help you lose weight.; Status:Complete - Retrospective Authorization; Done: [id number] SocHx: Never a smoker Tobacco Use Screening; Status:Complete; Done: [id number] Patient Instructions Please bring all medicines, vitamins, [...] CHEST PAIN.CALL 911 IF PAIN PERSISTS. Nyamyc [id number] UNIT/GM External Powderapply topically to affected area [...] Tobacco Screening.on Adult depression screening assessment No [facility] [employer] DO Work Phone: Fall risk assessment a) No falls within the last year [facility] [employer] DO Work Phone: Tobacco use status [facility]PH[facility] b) No [facility] [employer] DO Work Phone: MRI Ankle [...] by Wilder Arango on 08/01/2022 1102 Normal [facility] [employer] Tobacco Screening.on 021 Tobacco use status [facility]PHS b) No -[facility] [facility] [employer] DO Work Phone: Vital Signs Date Time Vital Sign Value Performing Clinician Facility 09-05-2024 09:53-0500 Body height 160 cm Celso Garibay DO Work Phone: [facility] 09-05-2024 09:53-0500 Body mass index (BMI) [Ratio] 30.11 kg/m2 Celso Garibay DO Work Phone: [facility] 09-05-2024 09:53-0500 Body weight 77.11 kg Celso Garibay DO Work Phone: [facility] 09-05-2024 09:53-0500 Diastolic blood pressure 80 mm[Hg] Celso Garibay DO Work Phone: [facility] 09-05-2024 09:53-0500 Heart rate 66 /min Celso Garibay DO Work Phone: [facility] 09-05-2024 09:53-0500 Systolic blood pressure 118 mm[Hg] Celso Phoenix DO Work Phone: [facility] 08-19-2024 01:03-0500 Diastolic blood pressure 69 mm[Hg] Ashley Grigsby MD Work Phone: [facility] 08-19-2024 01:03-0500 Heart rate 60 /min Ashley Grigsby MD Work Phone: [facility] 08-19-2024 01:03-0500 Respiratory rate 20 /min Ashley Grigsby MD Work Phone: [facility] 08-19-2024 01:03-0500 SaO2% (BldA) [Mass fraction] 96 % Ashley Grigsby MD Work Phone: [facility] 08-19-2024 01:03-0500 Systolic blood pressure 130 mm[Hg] Ashley Grigsby MD Work Phone: [facility] 08-18-2024 20:55-0500 Body height 160.02 cm Ashley Grigsby MD Work Phone: [facility] 08-18-2024 20:55-0500 Body temperature 97.4 [degF] Ashley Grigsby MD Work Phone: [facility] 08-18-2024 20:55-0500 Body weight 78.5 kg Ashley Grigsby MD Work Phone: [facility] 08-13-2024 12:21-0500 Body height 160 cm Celso Garibay DO Work Phone: [facility] 08-13-2024 12:21-0500 Body mass index (BMI) [Ratio] 30.47 kg/m2 Celso Garibay DO Work Phone: [facility] 08-13-2024 12:21-0500 Body weight 78.02 kg Celso Garibay DO Work Phone: [facility] 08-13-2024 12:21-0500 Diastolic blood pressure 94 mm[Hg] Celso Garibay DO Work Phone: [facility] 08-13-2024 12:21-0500 Heart rate 76 /min Celso Garibay DO Work Phone: [facility] 08-13-2024 12:21-0500 Systolic blood pressure 138 mm[Hg] Celso Garibay DO Work Phone: [facility] 08-05-2024 11:08-0500 Blood Pressure Location JENNIFER MARTINO [facility] 08-05-2024 11:08-0500 Body temperature 98.6 [degF] [place] [facility] 08-05-2024 11:08-0500 Diastolic blood pressure 80 mm[Hg] [place] [facility] 08-05-2024 11:08-0500 Heart rate 68 /min [place] [facility] 08-05-2024 11:08-0500 Respiratory rate 16 /min [place] [facility] 08-05-2024 11:08-0500 Systolic blood pressure 131 mm[Hg] [place] [facility] 04-10-2024 15:08-0400 Blood Pressure Location [place] [facility] 04-10-2024 15:08-0400 Diastolic blood pressure 80 mm[Hg] [place] [facility] 04-10-2024 15:08-0400 Heart rate 75 /min [place] [facility] 04-10-2024 15:08-0400 Respiratory rate 16 /min [place] [facility] 04-10-2024 15:08-0400 Systolic blood pressure 131 mm[Hg] [place] [facility] 08-14-2023 15:29-0500 Body height 161.3 cm Celso Garibay DO Work Phone: [facility] 08-14-2023 15:29-0500 Body mass index (BMI) [Ratio] 28.07 kg/m2 Celso Garibay DO Work Phone: [facility] 08-14-2023 15:29-0500 Body weight 73.03 kg Celso Garibay DO Work Phone: [facility] 08-14-2023 15:29-0500 Diastolic blood pressure 80 mm[Hg] Celso Garibay DO Work Phone: [facility] 08-14-2023 15:29-0500 Heart rate 56 /min Celso Garibay DO Work Phone: [facility] 08-14-2023 15:29-0500 Systolic blood pressure 138 mm[Hg] Celso Garibay DO Work Phone: [facility] 06-18-2023 15:15-0400 Diastolic blood pressure 78 mm[Hg] Gaby Tello DO Work Phone: [employer] 06-18-2023 15:15-0400 Heart rate 70 /min Gaby Tello DO Work Phone: [employer] 06-18-2023 15:15-0400 Respiratory rate 18 /min Gaby Novoag DO Work Phone: [employer] 06-18-2023 15:15-0400 SaO2% (BldA) [Mass fraction] 96 % Gaby Novoag DO Work Phone: [employer] 06-18-2023 15:15-0400 Systolic blood pressure 173 mm[Hg] Gaby Novoag DO Work Phone: [employer] 06-18-2023 14:36-0400 Body temperature 97 [degF] Gaby Novoag DO Work Phone: [employer] 06-18-2023 13:30-0400 Body height 160 cm Gaby Tello DO Work Phone: [facility] 06-18-2023 13:30-0400 Body mass index (BMI) [Ratio] 27.03 kg/m2 Gaby Tello DO Work Phone: [facility] 06-18-2023 13:30-0400 Body weight 69.22 kg Gaby Tello DO Work Phone: [facility] 11-02-2022 15:02-0500 Diastolic blood pressure 84 mm[Hg] MD Ashley Grigsby Work Phone: [facility] 11-02-2022 15:02-0500 Heart rate 78 /min MD Ashley Grigsby Work Phone: [facility] 11-02-2022 15:02-0500 Respiratory rate 18 /min MD Ashley Grigsby Work Phone: [facility] 11-02-2022 15:02-0500 SaO2% (BldA) [Mass fraction] 100 % MD Ashley Grigsby Work Phone: [facility] 11-02-2022 15:02-0500 Systolic blood pressure 161 mm[Hg] MD Ashley Grigsby Work Phone: [facility] 11-02-2022 13:20-0500 Body height 160.02 cm MD Ashley Grigsby Work Phone: [facility] 11-02-2022 13:20-0500 Body temperature 98.2 [degF] MD Ashley Grigsby Work Phone: [facility] 11-02-2022 13:20-0500 Body weight 60.78 kg MD Ashley Grigsby Work Phone: [facility] 11-01-2022 13:26-0500 Diastolic blood pressure 61 mm[Hg] MD Ashley Grigsby Work Phone: [facility] 11-01-2022 13:26-0500 Heart rate 59 /min MD Ashley Grigsby Work Phone: [facility] 11-01-2022 13:26-0500 Respiratory rate 20 /min MD Ashley Grigsby Work Phone: [facility] 11-01-2022 13:26-0500 SaO2% (BldA) [Mass fraction] 99 % MD Ashley Grigsby Work Phone: [facility] 11-01-2022 13:26-0500 Systolic blood pressure 124 mm[Hg] MD Ashley Grigsby Work Phone: [facility] 11-01-2022 10:53-0500 Body height 160.02 cm MD Ashley Grigsby Work Phone: [facility] 11-01-2022 10:53-0500 Body temperature 97.7 [degF] MD Ashley Grigsby Work Phone: [facility] 11-01-2022 10:53-0500 Body weight 61.68 kg MD Ashley Grigsby Work Phone: [facility] 10-24-2022 15:45-0500 Body height 159.38 cm Imad Asaad Other [place] Other 10-24-2022 15:45-0500 Body mass index (BMI) [Ratio] 24.28 kg/m2 Imad Asaad Other [place] Other 10-24-2022 15:45-0500 Body weight 61.69 kg Imad Asaad Other [place] Other 10-24-2022 15:45-0500 Diastolic blood pressure 94 mm[Hg] Imad Asaad Other [place] Other 10-24-2022 15:45-0500 Systolic blood pressure 133 mm[Hg] Imad Asaad Other [place] Other 09-19-2022 00:00-0500 34 1 Ashley M Hoy Work Phone: [facility] DO Work Phone: Comment on above: [employer] 08-15-2022 15:23-0500 Body height 160.02 cm Ashley M Hoy Work Phone: [facility] 250 DO Work Phone: 08-15-2022 15:23-0500 Body mass index (BMI) [Ratio] 26.22 kg/m2 Ashley M Hoy Work Phone: [facility] 250 DO Work Phone: 08-15-2022 15:23-0500 Body surface area Derived from formula 1.7 m2 Ashley M Hoy Work Phone: [facility] 250 DO Work Phone: 08-15-2022 15:23-0500 Body weight 67.13 kg Ashley M Hoy Work Phone: [facility] 250 DO Work Phone: 08-15-2022 15:23-0500 Diastolic blood pressure 82 mm[Hg] Ashley M Hoy Work Phone: [facility] DO Work Phone: 08-15-2022 15:23-0500 Heart rate 80 /min Ashley M Hoy Work Phone: [facility] 250 DO Work Phone: 08-15-2022 15:23-0500 Systolic blood pressure 132 mm[Hg] Ashley M Hoy Work Phone: [facility] 250 DO Work Phone: 06-02-2022 08:12-0400 Blood Pressure Location Santiago CARRILLO [facility] [place] [id number] 08:12-0400 Diastolic blood pressure 86 mm[Hg] Santiago CARRILLO [facility] 06-02-2022 08:12-0400 Heart rate 60 /min Santiago CARRILLO [facility] 06-02-2022 08:12-0400 Respiratory rate 16 /min Santiago CARRILLO [facility] 06-02-2022 08:12-0400 Systolic blood pressure 144 mm[Hg] Santiago CARRILLO [facility] 08-17-2021 09:47-0500 Body height 160.02 cm Ashley M Hoy Work Phone: [facility] 250 DO Work Phone: 08-17-2021 09:47-0500 Body mass index (BMI) [Ratio] 25.01 kg/m2 Ashley M Hoy Work Phone: [facility] 250 DO Work Phone: 08-17-2021 09:47-0500 Body surface area Derived from formula 1.67 m2 Ashley M Hoy Work Phone: [facility] 250 DO Work Phone: 08-17-2021 09:47-0500 Body weight 64.05 kg Ashley M Hoy Work Phone: [facility] 250 DO Work Phone: 08-17-2021 09:47-0500 Diastolic blood pressure 86 mm[Hg] Ashley M Hoy Work Phone: [facility] 250 DO Work Phone: 08-17-2021 09:47-0500 Heart rate 72 /min Ashley M Hoy Work Phone: [facility] 250 DO Work Phone: 08-17-2021 09:47-0500 Systolic blood pressure 134 mm[Hg] Ashley Tyree Seb Work Phone: [facility] 250 DO Work Phone: Encounters Encounter Date Encounter Type Care Provider Facility Start: 09-05-2024 End: 09-05-2024 ambulatory [facility] Ambulatory Start: 09-05-2024 End: 09-05-2024 Transitional care manage srvc 14 day discharge [facility] DO Work Phone: [facility] Comment on above: Atherosclerosis of c oronary artery bypass graft of [place] heart without angina pectoris; S/P PTCA (percutaneous transluminal coronary angioplasty); History of coronary artery bypass graft; Ischemic cardiomyopathy; Essential hypertension; Mixed hyperlipidemia; BMI 30.0-30.9,adult; Statin intolerance Start: 08-20-2024 End: 08-22-2024 Evaluation and management of inpatient Donis Arroyo Facility:[facility] Start: 08-18-2024 Evaluation and management of inpatient Ashley Grigsby MD Work Phone: [facility] [place] [facility] Work Phone: Start: 08-18-2024 observation encounter Ashley Grigsby MD Work Phone: [facility] Work Phone: Start: 08-13-2024 End: 08-13-2024 ambulatory [facility] Ambulatory Start: 08-13-2024 End: 08-13-2024 Office outpatient visit 25 minutes [facility] Work Phone: [facility] Comment on above: Atherosclerosis of c oronary artery of [place] heart without angina pectoris, unspecified vessel or lesion type; History of coronary artery bypass graft; Essential hypertension, benign; Hyperlipidemia, unspecified hyperlipidemia type; Acute pancreatitis, unspecified complication status, unspecified pancreatitis type ([facility] Start: 08-05-2024 End: 08-05-2024 ambulatory BARRY MARTINO Facility:[facility] Start: 08-05-2024 End: 08-05-2024 Patient encounter procedure JENNIFER MARTINO [facility] Start: 04-10-2024 End: 04-10-2024 ambulatory PA-C JENNIFER MARTINO Facility:[facility] Start: 04-10-2024 End: 04-10-2024 Patient encounter procedure JENNIFER MARTINO [facility] Start: 03-11-2024 End: 03-11-2024 ambulatory PA-C JENNIFER MARTINO Facility:[facility] Start: 03-11-2024 End: 03-11-2024 Patient encounter procedure JENNIFER MARTINO [facility] Start: 03-07-2024 End: 03-07-2024 Evaluation and management of inpatient ASHLEIGH LETHA [facility] Start: 03-06-2024 End: 03-07-2024 Evaluation and management of inpatient [facility] Start: 03-06-2024 End: 03-06-2024 Evaluation and management of inpatient [facility] Start: 02-29-2024 End: 02-29-2024 Evaluation and management of inpatient ASHLEY M SEB [facility] Start: 02-27-2024 ambulatory [facility] Start: 02-27-2024 End: 02-27-2024 ambulatory [facility] Start: 01-17-2024 End: 01-17-2024 ambulatory STEPHANIE BERGER [facility] Start: 09-13-2023 End: 09-13-2023 ambulatory ALINA JAVIER Not Available Start: 08-14-2023 End: 08-14-2023 Office outpatient visit 15 minutes Celso Garibay DO Work Phone: [facility] Comment on above: Atherosclerosis of c oronary artery of [place] heart without angina pectoris, unspecified vessel or lesion type; History of coronary artery bypass graft; Ischemic cardiomyopathy; Essential hypertension, benign Start: 06-18-2023 End: 06-18-2023 ambulatory GABY TELLO [facility] Start: 06-18-2023 End: 06-18-2023 Subsequent hospital visit by physician Gaby Tello DO Work Phone: [facility] Comment on above: Post-menopausal blee ding; Inclusion cyst Start: 05-24-2023 Rx Renewal Ashley Grigsby Work Phone: [facility] 250 DO Work Phone: Start: 05-17-2023 Patient encounter procedure Ashley Grigsby Work Phone: [facility] 250 DO Work Phone: Start: 05-15-2023 [facility] Start: 12-12-2022 End: 12-12-2022 ambulatory MD Ashley Grigsby Work Phone: [facility] Work Phone: Start: 12-12-2022 End: 12-12-2022 Patient encounter procedure MD Ashley Grigsby Work Phone: [facility] Work Phone: Start: 11-20-2022 End: 11-20-2022 ambulatory Imad Asaad Other [facility] Other Start: 11-20-2022 Telephone encounter Imad Asaad [facility] Start: 11-10-2022 End: 11-10-2022 Patient encounter procedure MD Ashley Grigsby Work Phone: [facility] [place] Work Phone: Start: 11-02-2022 End: 11-02-2022 Admission to same day surgery center MD Ashley Grigsby Work Phone: [facility] Work Phone: Start: 11-02-2022 End: 11-02-2022 ambulatory MD Ashley Grigsby Work Phone: [facility] Work Phone: Start: 11-01-2022 Telephone encounter Imad Asaad [facility] Start: 11-01-2022 End: 11-01-2022 Admission to same day surgery center MD Ashley Grigsby Work Phone: [facility] Work Phone: Start: 11-01-2022 End: 11-01-2022 ambulatory MD Ashley Grigsby Work Phone: [facility] Work Phone: Start: 10-24-2022 End: 10-24-2022 ambulatory Imad Asaad Other [facility] Other Start: 10-24-2022 [facility] visit new patient Imad Asaad [facility] Start: 10-16-2022 End: 10-17-[address] ASHLEY GRIGSBY Facility:[facility] Start: 10-09-2022 End: 10-10-[address] ASHLEY GRIGSBY Facility:[facility] Start: 10-05-2022 Rx Renewal Ashley Grigsby Work Phone: [facility] 250 DO Work Phone: Start: 10-04-2022 End: 10-06-[address] ASHLEY GRIGSBY Facility:[facility] Start: 09-19-2022 End: 09-20-[address] DOCTOR PATEL Facility:[facility] Start: 08-15-2022 Office outpatient vi sit 15 minutes Ashley Grigsby Work Phone: [facility] 250 DO Work Phone: Start: 08-15-2022 Patient encounter procedure Ashley Grigsby Work Phone: [facility] 250 DO Work Phone: Start: 06-02-2022 End: 06-02-2022 Patient encounter procedure Santiago CARRILLO [facility] Start: 05-31-2022 Rx Renewal Ashley Grigsby Work Phone: [facility] 250 DO Work Phone: Start: 02-07-2022 End: 02-07-2022 Patient encounter procedure Ashley Grigsby MD Work Phone: [facility] Laboratory Start: 02-07-2022 End: 02-07-2022 Subsequent hospital visit by physician Ashley Grigsby MD Work Phone: [facility] Laboratory Comment on above: Women's annual routi ne gynecological examination Start: 11-21-2021 Rx Renewal Ashley Grigsby Work Phone: [facility] 250 DO Work Phone: Start: 08-17-2021 Office outpatient vi sit 15 minutes Ashley Grigsby Work Phone: [facility] 250 DO Work Phone: Start: 08-19-2019 End: 08-19-2019 Subsequent hospital visit by physician [facility] Comment on above: Well female exam [...] 11-02-2032 Screening for malignant neoplasm of colon [facility] Start: 02-07-2027 Screening for malignant neoplasm of cervix [facility] Start: 08-18-2025 End: 08-18-2025 Patient encounter procedure 08/18/2025 11:20 AM EST Office Visit [facility] [address] [place] [address] Celso Garibay DO [address] [place] [address] [facility] Start: 08-03-2025 End: 08-13-2025 Alanine aminotransferase [Enzymatic activity/volume] in Serum or Plasma by With P-5'-P Alanine Aminotransferase Lab Routine Hyperlipidemia, unspecified hyperlipidemia type Expected: 08/03/2025 (Approximate), Expires: 08/13/2025 [facility] Service Area Work Phone: Comment on above: Expected: 08/03/2025 (Approximate), Expi res: 08/13/2025 Start: 08-03-2025 End: 08-13-2025 Aspartate aminotransferase [Enzymatic activity/volume] in Serum or Plasma by With P-5'-P Aspartate Aminotransferase Lab Routine Hyperlipidemia, unspecified hyperlipidemia type Expected: 08/03/2025 (Approximate), Expires: 08/13/2025 [facility] Work Phone: Comment on above: Expected: 08/03/2025 (Approximate), Expi res: 08/13/2025 Start: 08-03-2025 End: 08-13-2025 Lipid 1996 panel - Serum or Plasma Lipid Panel Lab Routine Hyperlipidemia, unspecified hyperlipidemia type Expected: 08/03/2025 (Approximate), Expires: 08/13/2025 [facility] Work Phone: Comment on above: Expected: 08/03/2025 (Approximate), Expi res: 08/13/2025 Start: 03-17-2025 End: 03-17-2025 Patient encounter procedure 03/17/2025 2:40 PM EDT Office Visit [facility] [address] [place] [address] Ceslo Garibay, [address] [place] [address] [facility] Start: 02-07-2025 Screening for malignant neoplasm of cervix [facility] Start: 08-19-2024 Screening for malignant neoplasm of cervix [facility] Start: 08-19-2024 [facility] Start: 08-19-2024 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 to 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 programmer analyst [facility] Start: 08-19-2024 [facility] Start: 08-18-2024 Hospital admission [facility] Start: 08-15-2024 Screening for malignant neoplasm of breast Mammogram [facility] Start: 08-13-2024 End: 08-13-2024 Patient encounter procedure 08/13/2024 11:30 AM EST Office Visit [facility] [address] [place] [address] Celso Garibay, DO [address] [place] [address] [facility] Start: 2024 RSV High Risk: (Elderly (60+) or Population) (1 - Risk 60-74 years 1-dose series) RSV High Risk: (Elderly (60+) or Population) (1 - Risk 60-74 years 1-dose series) [facility] Start: 06-01-2024 COVID-19 Vaccine ( season) COVID-19 Vaccine ( season) [facility] Start: 02-14-2024 Depression Screen Depression Screen [facility] Start: 02-12-2024 End: 08-14-2024 Alanine aminotransferase [Enzymatic activity/volume] in Serum or Plasma by With P-5'-P Alanine Aminotransferase Lab Routine History of coronary artery bypass graft Ischemic cardiomyopathy Expected: 02/12/2024 (Approximate), Expires: 08/14/2024 [facility] Work Phone: Comment on above: Expected: 02/12/2024 (Approximate), Expi res: 08/14/2024 Start: 02-12-2024 End: 08-14-2024 Aspartate aminotransferase [Enzymatic activity/volume] in Serum or Plasma by With P-5'-P Aspartate Aminotransferase Lab Routine Atherosclerosis of coronary artery of [place] heart without angina pectoris, unspecified vessel or lesion type Ischemic cardiomyopathy Expected: 02/12/2024 (Approximate), Expires: 08/14/2024 [facility] Work Phone: Comment on above: Expected: 02/12/2024 (Approximate), Expi res: 08/14/2024 Start: 02-12-2024 End: 08-14-2024 Lipid 1996 panel - Serum or Plasma Lipid Panel Lab Routine Atherosclerosis of coronary artery of [place] heart without angina pectoris, unspecified vessel or lesion type Expected: 02/12/2024 (Approximate), Expires: 08/14/2024 [facility] Service Area Work Phone: Comment on above: Expected: 02/12/2024 (Approximate), Expi res: 08/14/2024 Start: 08-14-2023 FUV, Provider: Celso Garibay, Status: Pen, Time: 3:00 PM FUV, Provider: Celso Garibay, Status: Pen, Time: 3:00 PM [facility] Work Phone: Start: 07-28-2023 Screening for malignant neoplasm of breast Breast cancer screen [facility] Start: 07-24-2023 Screening for malignant neoplasm of breast Mammogram [facility] Start: 07-03-2023 End: 07-03-2023 Patient encounter procedure 07/03/2023 4:45 PM EDT Office Visit [facility] [address] [place] [address] Gaby Phillips, DO [address] [place] [address] post-op BA 05/16 [facility] Comment on above: post-op BA 05/16 Start: 06-18-2023 End: 06-18-2023 Hysteroscopy bx endometrium&/polypc w/wo d&c DILATATION AND CURETTAGE HYSTEROSCOPY Post-menopausal bleeding Inclusion cyst 06/18/2023 2:01 PM EDT [facility] Start: 02-13-2023 End: 02-13-2023 Patient encounter procedure 02/13/2023 Office Visit Obstetrics and Gynecology Gaby Phillips, DO [address] [place] [address] [facility] Start: 12-12-2022 [facility] Start: 11-02-2022 [facility] Start: 11-01-2022 [facility] Start: 08-19-2022 Screening for malignant neoplasm of cervix Pap smear [facility] Start: 08-15-2022 FUV, Provider: Celso Garibay, Status: Pen, Time: 3:00 PM FUV, Provider: Celso Garibay, Status: Pen, Time: 3:00 PM [facility] Work Phone: Start: 08-03-2022 Lipid panel Lipids [facility] Start: 12-27-2021 COVID-19 Vaccine (4 - Pfizer series) COVID-19 Vaccine (4 - Pfizer series) SADI RODRIGUEZ [facility] Start: 06-01-2019 Influenza vaccination Flu vaccine (#1) [place], [place] Start: 05-09-2018 Pneumococcal Vaccine: Pediatrics (0 to 5 Years) and At-Risk Patients (6 to 64 Years) (2 - PCV) Pneumococcal Vaccine: Pediatrics (0 to 5 Years) and At-Risk Patients (6 to 64 Years) (2 - PCV) [facility] Start: 05-09-2018 Pneumococcal Vaccine: Pediatrics (0 to 5 Years) and At-Risk Patients (6 to 64 Years) (2 of 2 - PCV) Pneumococcal Vaccine: Pediatrics (0 to 5 Years) and At-Risk Patients (6 to 64 Years) (2 of 2 - PCV) [facility] Start: 2014 Breast cancer screen Breast cancer screen [place], [place] Start: 2014 Colon cancer screen colonoscopy Colon cancer screen colonoscopy [place], [place] Start: 2014 Shingles Vaccine (1 of 2) Shingles Vaccine (1 of 2) [facility] Start: 08-26-2009 MMR Vaccines (1 of 1 - Standard series) MMR Vaccines (1 of 1 - Standard series) [facility] Start: 2009 Screening for malignant neoplasm of colon [facility] Start: 1999 Diabetes screen Diabetes screen [facility] Start: 1986 DTaP/Tdap/Td Vaccines (1 - Tdap) DTaP/Tdap/Td Vaccines (1 - Tdap) [facility] Start: 1985 Cervical cancer screen Cervical cancer screen [place], [place] Start: 1985 Screening for malignant neoplasm of cervix [facility] Start: 1983 DTaP/Tdap/Td vaccine (1 - Tdap) DTaP/Tdap/Td vaccine (1 - Tdap) [facility] Start: 1982 Diabetes mellitus screening Diabetes Screening [facility] Start: 1982 Hepatitis C screening [facility] Start: 1979 HIV screen HIV screen [place], [place] Start: 1979 HIV screening HIV screen [facility] Start: 1976 Depression Screen Depression Screen [facility] Start: 1975 DTaP/Tdap/Td vaccine (1 - Tdap) DTaP/Tdap/Td vaccine (1 - Tdap) [facility] Start: [address] [facility] Start: 1974 Lipid screen Lipid screen [place], [place] Start: 1964 Hepatitis B vaccine (1 of 3 - 3-dose series) Hepatitis B vaccine (1 of 3 - 3-dose series) [facility] Start: 1964 Hepatitis B Vaccines (1 of 3 - 3-dose series) Hepatitis B Vaccines (1 of 3 - 3-dose series) [facility] Start: 1964 Hepatitis C screen Hepatitis C screen [place], [place] Start: 1964 HIV screening HIV Screening [facility] Start: 1964 Lipid panel Lipid Panel [facility] Start: 1964 Screening for malignant neoplasm of colon [facility] Start: 1964 Yearly Adult Physical Yearly Adult Physical [facility] Actin smooth muscle IgG Ab [Units/volume] in Serum [facility] Alpha 1 antitrypsin [Mass/volume] in Serum or Plasma [facility] Alpha 1 antitrypsin phenotyping [Identifier] in Serum or Plasma by Immunofixation [facility] Ceruloplasmin [Mass/volume] in Serum or Plasma [facility] End: 08-19-2019 Cytopathology procedure, preparation of smear, genital source PAP SMEAR Lab Routine Well female exam with routine gynecological exam 1 Occurrences starting 08/19/2019 until 08/19/2019 [place] Comment on above: 1 Occurrences starting 08/19/2019 until 08/19/2019 End: 02-07-2022 Cytopathology procedure, preparation of smear, genital source PAP SMEAR Lab Routine Women's annual routine gynecological examination 1 Occurrences starting 02/07/2022 until 02/07/2022 [facility] [employer] Work Phone: Comment on above: 1 Occurrences starting 02/07/2022 until 02/07/2022 Glucose measurement estimated from glycated hemoglobin [facility] Hepatitis A virus Ab [Presence] in Serum by Immunoassay [facility] Hepatitis B core ant ibody measurement [facility] Hepatitis B virus khanna rface Ab [Presence] in Serum [facility] Hepatitis B virus khanna rface Ag [Presence] in Serum or Plasma by Immunoassay [facility] Hepatitis C virus Ig G Ab [Presence] in Serum or Plasma by Immunoassay [facility] Homogenous nuclear A b pattern [Titer] in Serum [facility] IgG [Mass/volume] in Serum or Plasma [facility] End: 06-18-2023 INITIATE PACU OXYGEN THERAPY PROTOCOL Initiate PACU Oxygen Therapy Protocol Respiratory Care Routine Continuous until discontinued starting 06/18/2023 [employer] Comment on above: Continuous until discontinued starting 0 06/18/2023 Lipoprotein a [Moles/volume] in Serum or Plasma [facility] Mitochondria M2 IgG Ab [Units/volume] in Serum [facility] Nuclear Ab [Titer] i n Serum [facility] Oxygen therapy [Mini mum Data Set] Initiate Oxygen Therapy Protocol Respiratory Care Routine As Needed until discontinued starting 06/18/2023 [employer] Comment on above: As Needed until discontinued starting Oxygen therapy [Mini mum Data Set] Initiate Oxygen Therapy Protocol Respiratory Care Routine As Needed until discontinued starting 06/18/2023 [employer] Comment on above: As Needed until discontinued starting Patient Education Hemorrhoids (DC) [facility] Work Phone: End: 06-18-2023 , urine POCT , urine POCT Point of Care Testing Routine One Time for 1 Occurrences starting 06/18/2023 until 06/18/2023 [employer] Comment on above: One Time for 1 Occurrences starting 06/01 until 06/18/2023 Surgical Pathology Surgical Path ology Lab Routine Post-menopausal bleeding Inclusion cyst Release Upon Ordering for 1 Occurrences starting 06/18/2023 [employer] Comment on above: Release Upon Ordering for 1 Occurrences starting 06/18/2023 [facility] Immunizations Immunization Date Immunization Notes Care Provider Sudhakar ponce 06-01-2024 influenza, unspecifi ed formulation JENNIFER MARTINO [facility] 06-16-2022 influenza, injectabl e, quadrivalent, preservative free Ashley M Hoy Work Phone: [facility] 250 DO Work Phone: 06-16-2022 zoster vaccine recombinant Ashley M Hoy Work Phone: [facility] 250 DO Work Phone: 08-01-2021 Pfizer-BioNTech COVI D-19 Vacc 30 MCG/0.3ML Intramuscular Suspension Ashley M Hoy Work Phone: [facility] 250 DO Work Phone: 06-30-2021 influenza virus vacc ine, unspecified formulation Ashley M Hoy Work Phone: [facility] 250 DO Work Phone: 06-03-2021 Influenza, injectabl e, Madin Grinnell Canine Kidney, preservative free, quadrivalent Ashley M Hoy Work Phone: [facility] 250 DO Work Phone: 01-29-2021 Pfizer-BioNTech COVI D-19 Vacc 30 MCG/0.3ML Intramuscular Suspension Ashley M Hoy Work Phone: [facility] 250 DO Work Phone: 01-08-2021 Pfizer-BioNTech COVI D-19 Vacc 30 MCG/0.3ML Intramuscular Suspension Ashley M Hoy Work Phone: [facility] 250 DO Work Phone: 2020 influenza, injectabl e, quadrivalent, preservative free Ashley M Hoy Work Phone: [facility] 250 DO Work Phone: 07-23-2018 influenza, injectabl e, quadrivalent, preservative free Ashley M Hoy Work Phone: [facility] 250 DO Work Phone: 07-26-2017 Influenza, injectabl e, Madin Renetta Canine Kidney, preservative free, quadrivalent Ashley M Hoy Work Phone: [facility] DO Work Phone: 05-09-2017 pneumococcal polysaccharide vaccine, 23 valent Ashley M Hoy Work Phone: [facility] 250 DO Work Phone: 07-03-2015 influenza, seasonal, injectable, preservative free Ashley M Hoy Work Phone: [facility] DO Work Phone: 06-15-2014 influenza, seasonal, injectable Ashley M Hoy Work Phone: [facility] 250 DO Work Phone: 07-29-2009 novel influenza-H1N1 -09, preservative-free, injectable Ashley M Hoy Work Phone: [facility] 250 DO Work Phone: Payers Date Payer Category Payer Self-pay [id number] [id number] [facility] [id number] 2022 Unknown 2019 Unknown [employer] [place] LOC[place] xxxxxxxxxxxxxxx 2019-Present [address] [place] [address] xxxxxxxxxxxxxxx [id number] 1964 Unknown [id number] 1964 Unknown [id number] 1965 Unknown [id number] 2.16.840.1.375299.3.579.2.5 93 1965 Unknown [id number] 2.16.840.1.245650.3.579.2.5 93 1965 Unknown [id number] 2.16.840.1.182965.3.579.2.5 93 1965 Unknown [id number] 2.16.840.1.100966.3.579.2.1 73 1965 Unknown [id number] 2.16.840.1.794038.3.579.2.1 75 1965 Unknown [id number] 2.16.840.1.181333.3.579.2.1 259 1965 Unknown [id number] 2.16.840.1.764013.3.579.2.1 286 1964 Unknown [id number] 2.16.840.1.294422.3.579.2.1 286 1964 Unknown [id number] 2.16.840.1.755457.3.579.2.1 286 1964 Unknown [id number] 2.16.840.1.493947.3.579.2.1 286 1964 Unknown [id number] 2.16.840.1.307959.3.579.2.1 286 1964 Unknown [id number] 2.16.840.1.907351.3.579.2.1 286 1964 Unknown [id number] 2.16.840.1.348555.3.579.2.1 286 1964 Unknown [id number] 2.16.840.1.191385.3.579.2.7 27 1964 Unknown [id number] 2.16.840.1.338352.3.579.2.7 27 1964 Unknown [id number] 2.16.840.1.102911.3.579.2.7 27 1964 Unknown [id number] 2.16.840.1.465417.3.579.2.1 244 1964 Unknown [id number] 2.16.840.1.438483.3.579.2.1 244 1959 Unknown [id number] 1959 Unknown [id number] Unknown [id number] 2.16.840.1.812124.3.579.2.5 31 Social History Date Type Detail Facility Start: 08-19-2019 End: 08-14-2023 Tobacco smoking status NHIS Never smoker [place], [place] Start: 08-19-2019 End: 06-18-2023 Alcohol intake Ex-drinker (finding) [place], [place] Start: 1965 Sex Assigned At Not on file [place], [place] Start: 06-18-2023 End: 09-05-2024 No alcohol use No alcohol use [facility] 250 DO Work Phone: Start: 08-19-2019 End: 08-14-2023 Tobacco use and exposure Smokeless tobacco non-user [facility] Work Phone: Start: 06-18-2023 End: 09-05-2024 Sex Assigned At Female [facility] Start: 1965 Sex Assigned At Female [facility] Patient Health Questionnaire 9 item (PHQ-9) total score [Reported] 0 SADI RODRIGUEZ [facility] Start: 08-14-2023 End: 09-05-2024 Alcohol intake Lifetime non-drinker (finding) [facility] Work Phone: Start: 08-04-2023 End: 09-05-2024 Exposure to SARS-CoV-2 (event) Not sure [facility] Start: 08-19-2024 Sex Female (finding) [facility] NEGATED: Highlighted row Denies Caffeine use Denies Caffeine use -[facility] 250 DO Work Phone: Medical Equipment Procedure [...] 08-05-2024 Functional Status N/A [facility] 04-10-2024 Functional Status N/A [facility] 06-02-2022 Functional Status N/A [facility] Clinical Notes 06-02-2022 to 09-05-2024 Celso [...] 3.5 x 38 mm Ray stent and [place] distal circumflex for in-stent restenosis with 3 x 18 mm Ray stent. LV function is preserved. 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 Patient is otherwise stable [...] Atherosclerosis of coronary artery bypass graft of [place] mountain heart without angina pectoris 2. S/P PTCA [...] discussion and plan. documented in this encounter [facility] Work Phone: 09-05-2024 Instructions Jasmyne Salinas LPN [...] be sent through Care Everywhere.Heart Healthy Diet (Malay)documented in this encounter [facility] Work Phone: 08-19-2024 Evaluation note Diagnosis Onset Date Resolution Atypical chest pain acute Novem rocky 2023 11:18pm [facility] Work Phone: 1(567) 547-527511-13-2024 History of Present illness Narrative* Celso Garibay DO - 08/13/2024 11:30 AM EST Subjective Jose Alberto Saleem is a 59 y.o. female Chief Complaint Annual Exam 59-year-old female returns for annual visit, she just got back from [facility] from vacation last evening and is doing [...] Assessment/Plan 1. Atherosclerosis of coronary artery of white mountain heart without angina pectoris, unspecified vessel or lesion type Follow Up In Cardiology 2. History of coronary artery bypass graft Follow Up In Cardiology 3. Essential hypertension, benign 4. Hyperlipidemia, unspecified hyperlipidemia type 5. Acute pancreatitis, unspecified complication status, unspecified pancreatitis type ([facility]) Scribe Attestation By signing my name [...] exam, discussion and plan. [facility] 1(934) 653-892211-13-2024 Instructions* Patient Instructions* Bettie Ugalde LPN - [...] Provided instructions on exercise. [facility]: 1(786) 722-323911-05-2024 Hospital Discharge instructions Patient Education 08/05/2024 12:20:10 Kidney Stones, Ofdu-pz-Mtrq Kidney Stones Kidney stones are rock-like masses [...] Follow these instructions at home: Medicines Take ysob-ovs-khtvzho and prescription medicines only as told by [...] provider. Document Revised: 05/11/2023 Document Reviewed: 05/11/2023 [employer] Patient Education 2023 [employer]. Follow Up Care 06/06/2024 11:10:21 With:SALENA REDDY, JENNIFER López, URL Address: When:1 year [facility] 11-05-2024 NotePatient Education Urology Kidney Stones [...] these instructions at home: Medicines ??? Take uajo-okc-kzqikfi and prescription medicines only as told by [...] Reviewed: 05/11/2023 Elsevier Patient Education ? 2023 [employer] 04-10-2024 Hospital Discharge instructions Patient Education 04/10/2024 16:08:23 Kidney Stones, Xuab-zl-Elre Kidney Stones Kidney stones are rock-like masses [...] Follow these instructions at home: Medicines Take cidg-gpg-qrxfbvc and prescription medicines only as told by [...] provider. Document Revised: 05/22/2022 Document Reviewed: 05/22/2022 [employer] Patient Education 2022 [employer]. Follow Up Care 03/10/2024 08:31:33 With:JENNIFER MARTINO PA-C, URL Address: [address] [place] [address] When:3 months [facility] 07-11-2024 NotePatient Education Urology Kidney Stones Kidney [...] these instructions at home: Medicines ? Take qtiv-czs-zotsmjo and prescription medicines only as told by [...] provider. Document Revised: 05/22/2022 Document Reviewed: 05/22/2022 [employer] Patient Education ? 2022 [employer].[facility] 02-27-2024 Note Attestation signed by Danielle Ceasr MD at 02/27/2024 2:30 PM I personally saw and examined the patient on the same date of service as resident/fellow . I discussed the findings and therapeutic plan with the resident/fellow . I agree with the documentation, except for any edits/updates below. [facility] Gastroenterology New Patient Visit - History [...] pectoris (CMS/HCC) Atherosclerosis of coronary artery of [place] heart without angina pectoris Cellulitis of right [...] Mother Gretta Hyperlipidemia Father Munoz Hyperlipidemia Brother [place] Heart attack Brother Luis Manuel SOCIAL HISTORY: [...] negative HEENT: negative RESPI (more content not included)...[facility] History of Present illness Narrative* [...] Assessment/Plan 1. Atherosclerosis of coronary artery of [place] heart without angina pectoris, unspecified vessel or lesion type 2. History of coronary artery bypass graft 3. Ischemic cardiomyopathy 4. Essential hypertension, benign documented in this [facility] Work Phone: 1(506) 515-463311-14-2023 Instructions* Patient Instructions* Ej Braswell MA - [...] time of your visit. documented in this [facility] Work Phone: 1(996) 437-219509-18-2023 Hospital Discharge instructions* Discharge Instructions* Lissa Ocasio [...] call if excessive. Call the office at [phone] ([place]) [phone] ([place]) for an appointment in 2 weeks. [facility] History of Present illness Narrative* [...] pre-opvisit with Dr. Tripathi. documented [facility] Evaluation note* Encounter Date Diagnosis Assessment Notes Treatment Notes Treatment Clinical Notes Nov, Elevated liver function tests (ICD-10 - R94.5) [place] Other 02-02-2023 Procedure [facility]02-01-2023 Procedure [facility]01-24-2023 Evaluation note* Encounter Date Diagnosis Assessment Notes Treatment Notes Treatment Clinical Notes Oct, Abdominal pain (ICD-10 - R10.9) Oct, Common bile duct dilatation (ICD-10 - K83.8) Oct, Elevated liver enzymes (ICD-10 - R74.8) Oct, Constipation (ICD-10 - K59.00) Colonoscopy Start Miralax daily after colonoscopy. Titration dosing discussed with patient. Oct, Colon cancer screening (ICD-10 - Z12.11) [place] Other 01-04-2023 NotePROGRESS NOTE NOTE DATE: 10/04/2022 CHIEF COMPLAINT: Abdominal pain. HISTORY OF PRESENT ILLNESS: The patient is a 57-year-old female with a history of dyslipidemia and gastric bypass surgery, who has been having increasing abdominal pain and flank pain. She was seen yesterday at the [facility] for epigastric and upper abdominal [...] Lovenox. DISPOSITION: Home when medically stable.[id number] Discharge instructions Patient Education 06/02/2022 08:51:52 Kidney Stones, Gkny-wt-Ltqo Kidney Stones Kidney stones are rock-like masses [...] Follow these instructions at home: Medicines Take zkry-acu-pcpirln and prescription medicines only as told by [...] 03/05/2009 Document Revised: 02/03/2020 Document Reviewed: 02/03/2020 [employer] Patient Education 2019 Beautylish. Follow Up Care 05/27/2021 09:10:08 With:LORENA STRAUSS, Santiago Guzman, URL Address: [address] [place], [place] [address]- When: Unknown [facility] evaluation + Plan note Future Appointments Appointment Date:06/01/2023 08:00:00 AM Scheduled Provider:Santiago CARRILLO MD Location:[facility] Appointment Type:URO Office Visit [facility] evaluation + Plan note Future Appointments Appointment Date:04/10/2024 03:00:00 PM Scheduled Provider:JENNIFER MARTINO PA-C Location:[facility] Appointment Type:URO Office Visit [facility] evaluation + Plan note Future Scheduled Tests Radiology* XR Abdomen 1 View 08/05/25 [facility] evaluation note* Diagnosis Women's annual routine gynecological examination documented in this encounter [employer] Work Phone: [email or web address] noteNo assessment information available [facility] Work Phone: Evaluation noteNo InformationNort Areshay Other Evaluation note* Diagnosis Post-menopausal bleeding Postmenopausal bleeding Inclusion cyst Sebaceous cyst [facility]* Diagnosis Atherosclerosis of coronary artery of [place] heart without angina pectoris, unspecified vessel or lesion type 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 Ischemic cardiomyopathy Other specified forms of chronic ischemic heart disease Essential hypertension Unspecified essential hypertension Mixed hyperlipidemia BMI 30.0-30.9,adult Statin intolerance documented in this encounter [facility] Work Phone: History and physical note Author Evert Bruno [facility] November 01, 2022 12:40pm Note Date/Time November 01, 2022 1 2:40pm [facility] [address] [place] [address] Gastroenterology H&P Signed Patient: Jose Alberto Saleem MR#: [id number] : 1965 Acct:[id number] Age/Sex: 57 / F Adm Date: 3 Loc: Room: Type: [facility] Attending Dr: Evert Bruno MD Copies [...] by Evert Bruno MD> 11/01/22 1240 [facility] Work Phone: History and physical note Author Evert Bruno [facility] November 02, 2022 2:14pm Note Date/Time November 02, 2022 2 :14pm [facility] [address] [place] [address] Gastroenterology H&P Signed Patient: Jose Alberto Saleem MR#: [id number] : 1965 Acct:[id number] Age/Sex: 57 / F Adm Date: 3 Loc: Room: Type: [facility] Attending Dr: Evert Bruno MD Copies [...] by Evert Bruno MD> 11/02/22 1414 [facility] Work Phone: History general Narrative - Reported* Type Description Date Medical History impaired fasting glucose Medical History heart disease, ND stents, CABG Medical History Hypertension Medical History hyperlipidemia 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 Surgical History CABG remote history Surgical History gastric bypass 2017 Surgical History multiple kidney stones removed Surgical History appendectomy Surgical History cyst on ovarian removed Surgical History bilateral carpe tunnel surgery 2021 Surgical History cholecystectomy Hospitalization History see surgical hx [facility] Other Hospital course Narrative No data available for this section [facility] Hospital Discharge instructions Additional Instructions DISCHARGE [...] NOT operate machinery such as power tools, EnerMotionn mowers, Tactilize blowers, sewing machines, etc. for 24 hours. [...] problems. -Follow up with PCP. -Office number [phone]. [facility] Work Phone: Hospital Discharge instructions Additional [...] problems. -Follow up with PCP. -Office number [phone]. [facility] Work Phone: Hospital Discharge instructions No data available for this section [facility] progress note No data available for this section [facility] reason for referral (narrative)* Consultation (Routine) - Authorized Specialty Diagnoses / Procedures Referred By Manfred flynn Referred To Contact Cardiology Diagnoses Atherosclerosis of coronary artery of [place] heart without angina pectoris, unspecified vessel or lesion type History of coronary artery bypass graft Procedures Follow Up In Cardiology Celso Garibay DO [address] [address] Celso Garibay DO [address] [place] [address], [address] [address] Referral ID Status Reason Start Date Expiration Date V isits Requested Visits Authorized [id number] Authorized 08/14/2023 08/13/2024 1 1 [facility] Work Phone: Summary Purpose Family History No [...] FoundDocuments on File Type Date 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 * [place] [employer] is class I * Recommendations, [...] content) DATE CREATED AUTHOR 03/26/2018 [facility] DATE CREATED AUTHOR AUTHOR'S ORGANIZ ATION 03/26/2018 [facility] DATE CREATED AUTHOR AUTHOR'S ORGANIZ ATION 08/02/2022 [facility] dical Specialist DATE CREATED AUTHOR AUTHOR'S ORGANIZ ATION 08/17/2022 [employer] DATE CREATED AUTHOR AUTHOR'S ORGANIZ ATION 10/17/2022 [facility] DATE CREATED AUTHOR AUTHOR'S ORGANIZ ATION 06/23/2023 [facility] DATE CREATED AUTHOR AUTHOR'S ORGANIZ ATION 07/16/2023 [facility] DATE CREATED AUTHOR AUTHOR'S ORGANIZ ATION 09/15/2023 [facility] dical Specialists [facility] DATE CREATED AUTHOR AUTHOR'S ORGANIZ ATION 01/19/2024 [facility] DATE CREATED AUTHOR AUTHOR'S ORGANIZ ATION 03/03/2024 [facility] DATE CREATED AUTHOR AUTHOR'S ORGANIZ ATION 03/07/2024 [facility] DATE CREATED AUTHOR AUTHOR'S ORGANIZ ATION 08/06/2024 [facility] DATE CREATED AUTHOR AUTHOR'S ORGANIZ ATION 09/13/2024 [facility] DATE CREATED AUTHOR AUTHOR'S ORGANIZ ATION 09/15/2024 [facility] Care Teams (unrecognized sec tion and content) Team Status: Active Member Role Status Dates Ashley Grigsby MD Primary Care Provider Active Team Status: Active Member Role Status Dates Ashlye Grigsby MD Primary Care Provider Active Start: August 18, 2024 Lynnette Chapman MD Emergency Provider Active Start: August 18, 2024 Donis Arroyo , Admit Provider, Atte nding Provider Active Start: August 18, 2024 Team Status: Inactive Member Role Status Dates Ashley Grigsby MD Primary Care Provider Active Evert Bruno MD Attending Provider Active Packer Fuser Relationship Specialty Start Date End Date Ashley Grigsby MD [address] [place] [address] PCP - General Family Medicine 08/19/19 Packer Fuser Relationship Specialty Start Date End Date Ashley Grigsby MD [address] [place] [address] PCP - General Family Medicine 08/19/19 Packer Fuser Relationship Specialty Start Date End Date Ashley Grigsby MD [address] [place] [address] PCP - General 08/17/21 Packer Fuser Relationship Specialty Start Date End Date Ashley Grigsby MD [address] [place] [address] PCP - General 08/17/21 Packer Fuser Relationship Specialty Start Date End Date Ashley Grigsby MD [address] [place] [address] PCP - General 08/17/21 Anita Hammonds, draw press operatorRegional Sales Representative 08/22/24 REASON FOR VISIT (unrecogniz ed section and content) Specialty Diagnoses / Procedures Referred By Contfélix t Referred To Contact Diagnoses Post-menopausal bleeding Inclusion cyst Post-menopausal bleeding [N95.0] Inclusion cyst [L72.0] Procedures IL HYSTEROSCOPY BX ENDOMETRIUM&/POLYPC W/WO D&C IL DESTRUCTION BENIGN LESIONS UP TO 14 DILATATION AND CURETTAGE HYSTEROSCOPY-REMOVAL OF INCLUSION CYST Gaby Phillips, DO [address] [place] [address] [facility] [address] [place] [address] Referral ID Status Reason Start Date Expiration Date Visits Re quested Visits Authorized [id number] 1 1 Reason Comments Annual Exam 1yr Specialty Diagnoses / Procedures Referred By Manfred flynn Referred To Contact Cardiology Diagnoses Atherosclerosis of coronary artery of [place] heart without angina pectoris, unspecified vessel or lesion type History of coronary artery bypass graft Procedures Follow Up In Cardiology [place] Celso Pam, 7[address] [facility] 2, [address] [address] Phone: tel: fax: Celso Garibay, DO [address] [facility] 2, [address] [address] Phone: tel: fax: Referral ID Status Reason Start Date Expiration Date V isits Requested Visits Authorized [id number] Authorized 08/14/2023 08/13/2024 1 1 Reason Comments Follow-up [facility] discharge 08/22 Ordered Prescriptions (unrec ognized section [...] (NoRateChange - Provider: Lynnette Walden APRN - DOUGHNUT MACHINE OPERATOR HELPER)[id number] (Paused - Provider: OTONIEL Fragoso CRNA - [...] BE BASED ON THE PRIMARY CLINICAL RECORDS. [employer] [facility]. provides no warranty or guarantee of the accuracy or completeness of information in this document.
--- NOTE | 2024-10-02 09:13 | P.PN_ITS ---
Progress Note: Subjective Subjective Interval history: Still some diffuse pain per patient Exam Constitutional Vital Signs, click to edit/add: Last Vital Signs Temp 97.5 F L 10/02/24 08:00 Pulse 63 10/02/24 08:00 Resp 18 10/02/24 08:00 BP 156/76 H 10/02/24 08:00 Pulse Ox 95 10/02/24 08:00 O2 Del Method Room Air 10/02/24 08:00 Documenting provider has reviewed patient's vital signs: yes Common normals: no apparent distress Respiratory Common normals: normal respiratory effort Cardio Common normals: no JVD and regular rate GI Common normals: Normal to inspection, nondistended, normoactive bowel sounds present and soft to palpation; tender (Tenderness persisting today, not improved from previous day - sl worse) Progress Note: Objective Labs Labs: Short CBC 10/02/24 Range/Units 05:24 WBC 5.4 (4.0-11.0) 10^3/uL Hgb 14.0 (12.0-16.0) g/dL Hct 42.3 (36.0-48.0) % Plt Count 175 (150-450) 10^3/uL BMP 10/02/24 05:24 Sodium 143 Potassium 3.6 Chloride 108 H Carbon Dioxide 28.7 BUN 11.0 Creatinine 0.62 Glucose 88 Calcium 8.9 Liver Function 10/02/24 Range/Units 05:24 Total Bilirubin 0.3 (0.2-1.0) mg/dL AST 21 (15-37) U/L ALT 32 (14-59) U/L Alkaline Phosphatase 94 (46-116) U/L Albumin 3.2 L (3.4-5.0) g/dL Progress Note: A&P Assessment and Plan (1) Abdominal pain: (2) Acute pancreatitis: (3) Acute abdomen: (4) Hyperlipidemia: (5) History of prediabetes: (6) Hypertension: Plan Admission findings: Uncontrolled high blood pressure, elevated LFTs, elevated amylase and lipase with lipase over 700, patient admitted for n.p.o. and IV antibiotics, history of complicated acute pancreatitis in the past requiring long-term hospitalization Acute pancreatitis-uncertain etiology palpation is somewhat worse today than previous days, lipase is improved but not back to baseline, best case would be to maintain n.p.o. status for the rest of the day today, continue with IV fluids and hopefully lipase improved tomorrow will let her eat and then discharged tomorrow Uncontrolled hypertension-likely secondary to pain-monitor Hyperlipidemia is a possibility for why she gets the pancreatitis but has been controlled in the past and still has pancreatitis Admission status: Patient with a history of pancreatitis recurrent, typical hospitalization is 2 to 3 days, she has had sepsis in the past requiring lengthy hospitalization, medically necessary treatment will span 2 midnights. Inpatient status.
[2024-10-02] MEDS: VITS A,C,E/LUTEIN/MINERALS 1 TABLET 1 TAB PO ×2 (09:20→22:44)
[2024-10-02] MEDS: AMLODIPINE BESYLATE 5 MG TABLET 2.5 MG PO (09:20)
[2024-10-02] MEDS: TAMSULOSIN HCL 0.4 MG CAPSULE PO (09:20)
[2024-10-02] MEDS: KETOROLAC TROMETHAMINE 30 MG/ML VIAL IVP ×2 (09:20→18:23)
[2024-10-02] MEDS: CLOPIDOGREL BISULFATE 75 MG TABLET PO (09:20)
[2024-10-02] MEDS: CITALOPRAM HYDROBROMIDE 20 MG TABLET 40 MG PO (09:20)
[2024-10-02] MEDS: FLUTICASONE PROPIONATE 50 MCG NASAL SPRAY 2 SPRAY NS ×2 (09:21→22:45)
--- NOTE | 2024-10-02 09:50 | CM.NOTE ---
Rounds made with Dr. Dejesus, pt continues with abdominal tenderness but denies nausea. No discharge will repeat labs in AM.
[2024-10-02] MEDS: NYSTATIN 15 GM POWDER 1 APPLIC TOPICAL (22:43)
[2024-10-02] MEDS: OXYBUTYNIN CHLORIDE 5 MG TAB XL 10 MG PO (22:44)
[2024-10-02] MEDS: ASPIRIN 81 MG TABLET.DR PO (22:44)
[2024-10-02] MEDS: PANTOPRAZOLE SODIUM 40 MG VIAL IV (22:51)
[2024-10-03] VITALS: BP 166/91; PULSE 58; TEMP 36.6; O2SAT 95
[2024-10-03 04:00] VITALS: BP 169/89; PULSE 56; TEMP 36.6; O2SAT 93
[2024-10-03] MEDS: KETOROLAC TROMETHAMINE 30 MG/ML VIAL IVP (05:02)
[2024-10-03 05:32] VITALS: O2SAT 94
[2024-10-03] MEDS: CEVIMELINE 30 MG 30 EACH PO (06:32)
[2024-10-03 07:34] LABS: Alanine Aminotransferase 33 U/L (14-59); Albumin Globulin Ratio 1.1; Albumin Level 3.4 g/dL (3.4-5.0); Alkaline Phosphatase 98 U/L (46-116); Anion Gap 9.4; Aspartate Amino Transferase 22 U/L (15-37); BUN Creatinine Ratio 13.6; Bilirubin Total 0.4 mg/dL (0.2-1.0); Calcium 9.1 mg/dL (8.5-10.1); Carbon Dioxide 29.2 mmol/L (21.0-32.0); Chloride 106 mmol/L (98-107); Estimated GFR (African America >60 (>=60 mL/min/1.73m^2); Estimated GFR (Non-African Ame >60 (>=60 mL/min/1.73m^2); Glucose 83 mg/dL (74-106); Potassium 3.6 mmol/L (3.5-5.1); Sodium 141 mmol/L (136-145); Total Protein 6.4 g/dL (6.4-8.2)
[2024-10-03 08:35] VITALS: BP 138/80; PULSE 76; TEMP 36.4; O2SAT 95
[2024-10-03 08:44] VITALS: BP 138/80
[2024-10-03] MEDS: TAMSULOSIN HCL 0.4 MG CAPSULE PO (08:44)
[2024-10-03] MEDS: CITALOPRAM HYDROBROMIDE 20 MG TABLET 40 MG PO (08:44)
[2024-10-03] MEDS: [UNRECOGNIZED DRUG - OTHER] 2 CAP PO (08:44)
[2024-10-03] MEDS: CLOPIDOGREL BISULFATE 75 MG TABLET PO (08:44)
[2024-10-03] MEDS: VITS A,C,E/LUTEIN/MINERALS 1 TABLET 1 TAB PO (08:44)
[2024-10-03] MEDS: AMLODIPINE BESYLATE 5 MG TABLET 2.5 MG PO (08:44)
[2024-10-03] MEDS: LACTATED RINGER'S SOLUTION 1,000 ML 100 ML IV (08:46)
[2024-10-03] MEDS: FLUTICASONE PROPIONATE 50 MCG NASAL SPRAY 2 SPRAY NS (08:48)
--- NOTE | 2024-10-03 09:29 | CM.NOTE ---
Rounds made with Dr. Dejesus. Dr. Dejseus discussed labs and plan is for Tiarra to eat FF diet and recheck labs and if stable then discharge home today.
--- NOTE | 2024-10-03 09:51 | P.DS_ITS ---
DS: Providers Provider Date of admission: 09/30/24 18:03 Primary care physician: Ziggy Dejesus MD Consults: 09/30/24 18:03 Consult to Pharmacy Routine Consulting Provider: Reason for consultation: Please Thorp me when Med Rec is Updated Has provider been notified: No DS: Diagnosis Discharge Diagnosis (1) Abdominal pain: (2) Acute pancreatitis: (3) Acute abdomen: (4) Hyperlipidemia: (5) History of prediabetes: (6) Hypertension: Plan Admission findings: Uncontrolled high blood pressure, elevated LFTs, elevated amylase and lipase with lipase over 700, patient admitted for n.p.o. and IV antibiotics, history of complicated acute pancreatitis in the past requiring long-term hospitalization Acute pancreatitis-uncertain etiology palpation is somewhat worse today than previous days, lipase is improved but not back to baseline, best case would be to maintain n.p.o. status for the rest of the day today, continue with IV fluids and hopefully lipase improved tomorrow will let her eat and then discharged tomorrow Uncontrolled hypertension-likely secondary to pain-monitor Hyperlipidemia is a possibility for why she gets the pancreatitis but has been controlled in the past and still has pancreatitis Admission status: Patient with a history of pancreatitis recurrent, typical hospitalization is 2 to 3 days, she has had sepsis in the past requiring lengthy hospitalization, medically necessary treatment will span 2 midnights. Inpatient status. ? DS: Summary Hospital Course Hospital Course: Patient was admitted with a reoccurrence of her acute pancreatitis, initially placed on antibiotics secondary to the concern for ascending cholangitis, but her white blood cell count remained stable, her lipase was improved the following morning's we did attempt her to eat, after eating she did have an increase in pain so recheck the lipase and was indeed significantly elevated, made her n.p.o. and the following morning her lipase was still elevated above normal, so we maintained another day of n.p.o. status, this morning her lipase is normal, we did have her eat breakfast, fat-free breakfast, no significant change in her pain and her lipase remained normal so today she can be discharged to home in improving condition. Medications to this. See me in the office next week. Time Spent with Patient Time attestation: Total time spent providing and/or coordinating discharge services: Exam Constitutional Vital Signs, click to edit/add: Last Vital Signs Temp 97.5 F L 10/03/24 08:35 Pulse 76 10/03/24 08:35 Resp 18 10/03/24 08:35 BP 138/80 10/03/24 08:44 Pulse Ox 95 10/03/24 08:35 O2 Del Method Room Air 10/03/24 08:35 Documenting provider has reviewed patient's vital signs: yes Common normals: no apparent distress Respiratory Common normals: normal respiratory effort Cardio Common normals: no JVD and regular rate GI Common normals: Normal to inspection, nondistended, normoactive bowel sounds present and soft to palpation; tender (Still with mild tenderness) DS: Data Data Completed and Pending Labs on day of discharge: Labs from last 24 hours 10/03/24 06:23 Sodium 141 Potassium 3.6 Chloride 106 Carbon Dioxide 29.2 Anion Gap 9.4 BUN 9.0 Creatinine 0.66 Est GFR ( Amer) >60 Est GFR (Non-Af Amer) >60 BUN/Creatinine Ratio 13.6 Glucose 83 Calcium 9.1 Total Bilirubin 0.4 AST 22 ALT 33 Alkaline Phosphatase 98 Total Protein 6.4 Albumin 3.4 Globulin 3.0 Albumin/Globulin Ratio 1.1 Lipase 42.0 Discharge Plan Discharge Disposition: Home, Self-Care Condition: Good Discharge Medications: Continued aspirin 81 mg tablet,delayed release (DR/EC) 81 mg PO BEDTIME cevimeline 30 mg capsule 30 mg PO TID citalopram 40 mg tablet 40 mg PO DAILY fluticasone propionate 50 mcg/actuation spray,suspension 1 spray INTRANASAL BID rabeprazole 20 mg tablet,delayed release (DR/EC) 20 mg PO BID tamsulosin 0.4 mg capsule 0.4 mg PO DAILY amlodipine 2.5 mg tablet 2.5 mg PO DAILY clopidogrel 75 mg tablet 75 mg PO DAILY nitroglycerin 0.4 mg tablet, sublingual 0.4 mg sublingual Q5M PRN (Reason: chest pain) nystatin [Nystop] 100,000 unit/gram powder 1 applic TOPICAL BID PRN (Reason: rash) estradiol 0.01 % (0.1 mg/gram) cream 0.25 appful VAGINAL .every other day mirabegron 50 mg tablet extended release 24 hr 50 mg PO .qhs atorvastatin 20 mg tablet 20 mg PO DAILY PreserVision AREDS-2 250-90-40-1 mg capsule 1 tab PO BID Activity: increase activity as tolerated Diet: other Diet Detail: Fat Free Print Language: Guyanese Patient Instructions: Pancreatitis (DC) Forms: Portal Instructions Follow Up Appointments: Oct.07 @ 11:15am with Dr. Dejesus [phone] Discharge Date/Time: 10/03/24 11:10
[2024-10-03 10:49] VITALS: O2SAT 95
--- NOTE | 2024-10-06 15:10 | CM.DCFOLLOWU ---
Person spoke with: Tiarra How are you feeling? Much better How is your pain? No pain Did you understand your discharge instructions? Yes Do you have any questions about your discharge instructions? No Were you given any prescriptions at discharge? No Were you able to get your prescriptions filled? N/A Do you understand how to take your medications as ordered? Yes Do you have any questions about your follow up appointment and do you plan to keep your follow up appointment? I see Dr. Dejesus tomorrow Is there anything else that you would like to discuss? No Questions/Comments/Concerns/Other:
== END 2024-10-03 11:10 | disposition home or self-care (01) | DRG 440 ==
LOC: ER 18:26 → MS 10-01 10:13
PROVIDERS: Admitting Provider Family Medicine; Emergency Provider Emergency Medicine; PCP Family Medicine; Visit Provider Family Medicine
DX: K85.90 Acute pancreatitis without necrosis or infection, unspecified (principal); I10 Essential (primary) hypertension; E78.5 Hyperlipidemia, unspecified; R73.03 Prediabetes; Z79.82 Long term (current) use of aspirin; Z79.02 Long term (current) use of antithrombotics/antiplatelets; Z79.899 Other long term (current) drug therapy; Z88.0 Allergy status to penicillin; Z88.2 Allergy status to sulfonamides; Z91.040 Latex allergy status; Z95.5 Presence of coronary angioplasty implant and graft; Z95.1 Presence of aortocoronary bypass graft
CPT/HCPCS: 36415; 74177; 76705; 80048; 80053; 80061; 80076; 81001; 82140; 82150; 83605; 83690; 83735; 85025; 85610; 85730; 87040; 93005; 94667; 94668; 94761; 96374; 96375; 99285; J1885; J2270; J2405; J2543; Q9967

== ENCOUNTER 2025-01-02 06:33 | Outpatient (OUT) | payer BC, SELFPAY ==
--- OUTSIDE RECORDS SUMMARY | 2025-01-02 06:40 | XMS_ITS ---
Author Name Auto Generated Organization OHIP Support Name Relationship Address Phone HORACE TERRAZAS Next of Kin Unknown [phone] HORACE TERRAZAS Next of Kin Unknown [phone] JORGE TERRAZAS Next of Kin Unknown [phone] JORGE TERRAZAS Next of Kin Unknown [phone] MINA YADAV Next of Kin Unknown Unavailable NINI, CRYSTAL Next of Kin Unknown [phone] [place] [address] [phone] JORGE TERRAZAS Next of Kin Unknown [phone] HORACE TERRAZAS Next of Kin Unknown [phone] NONE Next of Kin Unknown Unavailable Jorge Terrazas Next of Kin Unknown [phone] JORGE TERRAZAS Next of Kin Unknown [phone] HORACE TERRAZAS Next of Kin Unknown [phone] NONE Next of Kin Unknown Unavailable MINA YADAV Next of Kin Unknown Unavailable NINI CRYSTAL Next of Kin Unknown [phone] [place] [address] [phone] MINA YADAV Next of Kin Unknown Unavailable NINI, CRYSTAL Next of Kin Unknown [phone] [place] [address] [phone] MINA YADAV Next of Kin Unknown Unavailable NINI, CRYSTAL Next of Kin Unknown [phone] [place] [address] [phone] MINA YADAV Next of Kin Unknown Unavailable NINI, CRYSTAL Next of Kin Unknown [phone] [place] [address] [phone] MINA YADAV Next of Kin Unknown Unavailable JORGE TERRAZAS Next of Kin Unknown [phone] [place] [address] [phone] MINA YADAV Next of Kin Unknown Unavailable JORGE TERRAZAS Next of Kin Unknown [phone] [place] [address] [phone] HORACE TERRAZAS Next of Kin Unknown [phone] HORACE TERRAZAS Next of Kin Unknown [phone] MINA YADAV Next of Kin Unknown Unavailable JORGE TERRAZAS Next of Kin Unknown [phone] [place] [address] [phone] STIVEN NERI Next of Kin Unknown + Care Team Providers Care Coding Consultant Name Role Phone CHAUNCEY KIMBLE Attending Unavailable CHAUNCEY KIMBLE Referring Unavailable ALASTAL, YASEEN Attending Unavailable CELSO MENDOZA Attending Unavailable CELSO MENDOZA Referring Unavailable HOY, ZIGGY MURIEL Primary Care Unavailable CELSO MENDOZA Attending Unavailable HOY, ZIGGY MURIEL Primary Care Unavailable Hoy, Ziggy Primary Care Unavailable TIFFANI MARTINO Attending Unavailable TIFFANI MARTINO Attending Unavailable TIFFANI MARTINO Attending Unavailable STEPHANIE BERGER Attending Unavailable HOY, ZIGGY M Referring Unavailable HOY, ZIGGY M Primary Care Unavailable HOY, ZIGGY M Referring Unavailable HOY, [...] Unavailable HOY, ZIGGY M Primary Care Unavailable RADHA JAIMES Referring Unavailable HOY, ZIGGY M Primary Care Unavailable Kaiser Quijano Attending Unavailable Ziggy Dejesus Primary Care Unavailable Donis [place] Admitting Unavailable Bella Stein Referring Unavailable Una [place]es Consulting Unavailable Blas Mendoza Consulting Unavailable Arvind Sanchez Consulting Unavailable Celso Ann Consulting Unavail able Nyasia Marquez Consulting Unavailable Samuel Olson Consulting Unavailab Cindy Urias Consulting Unavailable Cierra Artis Consulting Unavailable Durga Guerra Consulting Unavailab Toya Marsh Consulting Unavailable Jackie Daugherty Consulting Unavailable RAJI WHITFIELD Attending Unavailable RAJI WHITFIELD Referring Unavailable PROBLEMS DATE TYPE CONDITION / CODE ATTENDING STATUS [facility] 12/12/2024 Admitting Diagnosis Acute pancreatitis without necrosis or infection, unspecified / K85.90(ICD-10) [facility] 12/12/2024 Admitting Diagnosis Encounter for follow-up examination after completed treatment for malignant neoplasm / Z08(ICD-10) [facility] 12/12/2024 Admitting Diagnosis Personal history of other malignant neoplasm of large intestine / Z85.038(ICD-10) [facility] 10/11/2024 Unknown Pain in left arm / M79.602(ICD-10) [facility] 10/11/2024 Unknown Pain in right ar m / M79.601(ICD-10) [facility] 09/05/2024 Admitting Diagnosis Coronary angioplasty status / Z98.61(ICD-10) [facility] 09/05/2024 Admitting Diagnosis Essential (primary) hypertension / I10(ICD-10) [facility] 09/05/2024 Admitting Diagnosis Body mass index (BMI) 30.0-30.9, adult / Z68.30(ICD-10) [facility] 09/05/2024 Admitting Diagnosis Other specified health status / Z78.9(ICD-10) [facility] 08/09/2023 Admitting Diagnosis Atherosclerosis of coronary artery bypass graft(s) without angina pectoris / I25.810(ICD-10) [facility] 08/09/2023 Admitting Diagnosis Ischemic cardiomyopathy / I25.5(ICD-10) [facility] 08/09/2023 Admitting Diagnosis Mixed hyperlipidemia / E78.2(ICD-10) [facility] 08/20/2024 Unknown Other chest pain / R07.89(ICD-10) [facility] 08/20/2024 Unknown Atherosclerotic heart disease of [place] coronary artery without angina pectoris / I25.10(ICD-10) [facility] 08/20/2024 Unknown Bariatric surger y status / Z98.84(ICD-10) [facility] 08/20/2024 Unknown Presence of aortocoronary bypass graft / Z95.1(ICD-10) [facility] 08/13/2024 Admitting Diagnosis Acute pancreatitis without necrosis or infection, unspecified ([facility]) / K85.90(ICD-10) [facility] 08/09/2023 Admitting Diagnosis Atherosclerotic heart disease of [place] coronary artery without angina pectoris / I25.10(ICD-10) [facility] 08/09/2023 Admitting Diagnosis Presence of aortocoronary bypass graft / Z95.1(ICD-10) [facility] 08/09/2023 Admitting Diagnosis Hyperlipidemia, unspecified / E78.5(ICD-10) [facility] 03/06/2024 Unknown ACUTE RECURRING PANCREATITIS, EPIGASTRIC PAIN / UNK(Unknown) DANIELLE CESAR [facility] 02/27/2024 Admitting Diagnosis Other specified abnormal findings of blood chemistry / R79.89(ICD-10) [facility] 02/27/2024 Admitting Diagnosis Abnormal weight loss / R63.4(ICD-10) [facility] 02/27/2024 Admitting Diagnosis Liver disease, unspecified / K76.9(ICD-10) NA [facility] 02/27/2024 Admitting Diagnosis Bariatric surgery status / Z98.84(ICD-10) NA [facility] 02/27/2024 Admitting Diagnosis Other intestinal malabsorption / K90.89(ICD-10) NA [facility] 02/27/2024 Admitting Diagnosis Epigastric pain / R10.13(ICD-10) DANIELEL CESAR [facility] 03/20/2022 Unknown Other specified disorders of nose and nasal sinuses / J34.89(ICD-10) STEPHANIE BERGER [facility] 09/13/2021 Unknown Disturbances of salivary secretion / K11.7(ICD-10) STEPHANIE BERGER [facility] 01/17/2024 Unknown Allergic rhiniti s, unspecified / J30.9(ICD-10) STEPHANIE BERGER [facility] 01/17/2024 Unknown Med Refill / [facility]REETEXT(AOF) STEPHANIE BERGER [facility] PROCEDURES No Procedure Records Found RESULTS FOLLOW-UP Observed: 12/12/2024 9:30 AM Status: COMPLETED Source: [facility] REPOSITORY [id number] Jose Alberto Saleem 06/1965 F Date Provider Department Center 12/12/2024 CHAUNCEY CESPEDES [facility] Family History Problem Relation Age of Onset Hyperlipidemia Mother Hyperlipidemia Father Hyperlipidemia Brother Heart attack Brother Family Status - Relation Status Age at Mother Father Brother Brother Level of Service:80988 UT OFFICE/OUTPATIENT NEW MODERATE MDM 45 MINUTES (GC) Reason for Visit and Comments: Pancreatitis [568041] - Pain when she stresses or when she eats. She has trouble with losing weight as she always feels bloated and gassy. PROGRESS Observed: 12/12/2024 9:00 AM Status: COMPLETED Source: [facility] REPOSITORY Attestation signed by Chauncey Kimble MD at 12/12/2024 3:31 PM I personally saw the patient with the resident/fellow on the same day of service. I discussed the findings and therapeutic plan with the resident/fellow and with the patient. I agree with the documentation. [facility] Gastroenterology New Patient Visit - History & Physical CHIEF COMPLAINT No chief complaint on file. HISTORY OF PRESENT ILLNESS: Jose Alberto Saleem is a 59 y.o. female with PMHx of romina-en-y gastric bypass, cholecystectomy in for biliary colic, CABG, GERD, nutcracker syndrome, decreased saliva on cevimeline who presents for evaluation of acute recurrent pancreatitis.She reports first episode of acute pancreatitis was [...] beverage 08/2023. Romina-en-y was 5 years ago. INTERVAL HISTORY: 12/12/2024 Patient is here for follow up. Patient reported she had another episode of pancreatitis on for which she was admitted at [facility] and was management symptomatically. Patient reported since then she has been feeling fine. Unknown family history. Patient denies alcohol use. PREVIOUS LABS/IMAGING/ENDOSCOPY: MRCP 02/12/2024 EUS-03/24 Findings: ENDOSCOPIC FINDING: : The upper third of the esophagus, middle third of the esophagus and lower third of the esophagus were normal. Evidence of a Romina-en-Y gastrojejunostomy was found. The gastrojejunal anastomosis was characterized by healthy appearing mucosa. This was traversed. The jhcqs-hm-jywbkqa limb was characterized by healthy appearing mucosa. ENDOSONOGRAPHIC FINDING: : There was no sign of significant endosonographic abnormality in the pancreatic body and pancreatic tail. The pancreatic duct measured up to 2.1 mm at the body of the pancreas, 1.8 mm at the tail of the pancreas. No masses, no calcifications, no lobularity. No significant changes of chronic pancreatitis. HISTORY: Problem list: Patient Active Problem List Diagnosis Acute myocardial infarction (CMS/HCC) Angina pectoris Atherosclerosis of coronary artery of [place] heart without angina pectoris Cellulitis of right foot due to methicillin-resistant Staphylococcus aureus Clotting disorder Diabetes (CMS/HCC) Dry nose Essential hypertension, benign GERD (gastroesophageal reflux disease) Heart disease History of coronary artery bypass graft Hypercholesterolemia Ischemic cardiomyopathy Kidney disease Morbid obesity (CMS/HCC) Other chronic allergic conjunctivitis Chronic pancreatitis (CMS/HCC) Paroxysmal SVT (supraventricular tachycardia) Peripheral edema S/P nasal septoplasty Ventricular septal defect Xerostomia BMI 30.0-30.9,adult S/P PTCA (percutaneous transluminal coronary angioplasty) Statin intolerance Past Medical History: Past Medical History: Diagnosis Date Myocardial infarction (CMS/HCC) 10 yrs ago Pancreatitis Oct 2022 Past Surgical History: Past Surgical History: Procedure Laterality Date APPENDECTOMY BARIATRIC SURGERY 5 yrs ago CHOLECYSTECTOMY FAMILY HISTORY: Family History Problem Relation Name Age of Onset Hyperlipidemia Mother Katharyn Hyperlipidemia Father Munoz Hyperlipidemia Brother [place] Heart attack Brother Ray SOCIAL HISTORY: Social History Tobacco Use Smoking status: Never Smokeless tobacco: Never Vaping Use Vaping status: Never Used Substance Use Topics Alcohol use: Never Drug use: Never ALLERGIES: Baclofen; Latex, natural rubber; Penicillins; Sulfa (sulfonamide antibiotics); Rosuvastatin; Sulfamethoxazole-trimethoprim; Fenofibrate; Fenofibrate micronized; Fluvastatin; Levofloxacin; Phenazopyridine; Simvastatin; Trimethoprim; and Tobramycin Current Medications: Current Outpatient Medications: amLODIPine (Norvasc) 2.5 mg tablet, Take 2.5 mg by mouth in the morning., Disp: , Rfl: clopidogrel (Plavix) 75 mg tablet, Take 75 mg by mouth in the morning., Disp: , Rfl: estradiol (Estrace) 0.01 % (0.1 mg/gram) vaginal cream, Insert into the vagina in the morning., Disp: , Rfl: mirabegron 50 mg tablet extended release 24 hr, Take 50 mg by mouth., Disp: , Rfl: traMADol (Ultram) 50 mg tablet, , Disp: , Rfl: aspirin 81 mg EC tablet, Take 81 mg by mouth 1 (one) time., Disp: , Rfl: atorvastatin (Lipitor) 20 mg tablet, Take 20 mg by mouth in the morning., Disp: , Rfl: cevimeline (Evoxac) 30 mg capsule, Take 30 mg by mouth three times daily., Disp: , Rfl: cholecalciferol (Vitamin D-3) 125 MCG (5000 UT) capsule, Take 10,000 Units by mouth 4 (four) times a week., Disp: , Rfl: citalopram (CeleXA) 20 mg [...] ROS as below CONSTITUTIONAL: negative HEENT: negative RESPIRATORY: negative CARDIOVASCULAR: negative GASTROINTESTINAL: As in HPI GENITOURINARY: negative INTEGUMENT/BREAST: negative MUSCULOSKELETAL: negative NEUROLOGICAL: negative BEHAVIOR/PSYCH: negative PHYSICAL EXAM: There were no vitals filed for this visit. There is no height or weight on file to calculate BMI. CONSTITUTIONAL: awake, alert and no apparent distress EYES: pupils equal, round and reactive to light; conjunctiva pink and normal appearing ENT: oral pharynx with moist mucus membranes LUNGS: no increased work of breathing, good air exchange CARDIOVASCULAR: regular rate and no edema ABDOMEN: normal bowel sounds, soft, non-distended and non-tender SKIN: no bruising or bleeding, no rashes and no jaundice NEURO: alert, no focal deficits LABORATORY DATA: CBC: Lab Results Component Value Date WBC 5.33 02/27/2024 RBC 4.90 02/27/2024 HGB 14.8 02/27/2024 HCT 44.0 02/27/2024 MCV 89.8 02/27/2024 RDW 12.6 02/27/2024 PLT 198 02/27/2024 PT/INR Lab Results Component Value Date PT 14.0 02/27/2024 INR 1.08 02/27/2024 BMP: Lab Results Component Value Date NA 138 02/27/2024 K 4.2 02/27/2024 CL 102 02/27/2024 BUN 28 (H) 02/27/2024 BUN 27 (H) 02/27/2024 CREATININE 0.62 02/27/2024 EGFR 102.5 02/27/2024 LFTs: Lab Results Component Value Date BILITOT 0.4 02/27/2024 ALKPHOS 84 02/27/2024 GGT 18 02/27/2024 AST 41 (H) 02/27/2024 AST 33 02/27/2024 ALT 57 (H) 02/27/2024 ALT 43 02/27/2024 ALBUMIN 4.4 02/27/2024 PROT 6.9 02/27/2024 B12/Folate/Iron studies: Lab Results Component Value Date LIPETFSI98 1,862 (H) 02/27/2024 FOLATE 39.0 02/27/2024 IRON 56 02/27/2024 TIBC 364 02/27/2024 UIBC 308.0 02/27/2024 IRONSAT 15 (L) 02/27/2024 FERRITIN 32.0 02/27/2024 Viral Hepatitis Lab Results Component Value Date HEPAIGM Nonreactive 02/27/2024 HEPBSAG Nonreactive 02/27/2024 HEPBCAB Nonreactive 02/27/2024 HEPCAB Nonreactive 02/27/2024 Liver Workup Lab Results Component Value Date SMOOTHMUSCAB <1:20 02/27/2024 TTGA <1.02 02/27/2024 IGA 108 02/27/2024 TSH 2.02 02/27/2024 Pancreatitis Lab Results Component Value Date TRIG 144 02/27/2024 CALCIUM 9.9 02/27/2024 ASSESSMENT AND PLAN: Jose Alberto was seen today for new patient and pancreatitis. Diagnoses and all orders for this visit: Acute recurrent pancreatitis (Primary) Unclear etiology hx of cholecystectomy in 1989 due to pain and sludge MRCP negative for CBD dilation, mild AST/ALT elevation denies alcohol use has hx of TGs 1800 that have been controlled after weight loss. Denies smoking. EUS 03/24 unremarkable (however exam limited due to altered anatomy) D/D pancreatic divisim/SOD/Biliary sludge/microlithiasis 2. Epigastric pain- resolved Recent EGD 03/24 negative. 3. History of Elevated LFT's- Recent LFT'S normal. Tissue transglutaminase, IgA, Hepatitis panel, acute; Future, Iron and TIBC, IgG 1, 2, 3, and 4; Mitochondrial antibodies,; Protime-INR; Anti-smooth muscle antibody titer; CHAY; Igbdr-1-hhmmnydcbxu; Ferritin, Comprehensive metabolic panel; IgA; CBC and differential; Lipid panel; Hemoglobin A1c (negative) Fib-4 revealed F2 fibrosis however it was done while LFT were elevated. No recent fibroscan 4. History of Romina-en-Y gastric bypass 6 years ago Vitamin B-12, Folate; Copper, serum; Vitamin D 25 hydroxy (2023 normal) 5. Colorectal cancer screening Last colonoscopy 2022 at [place] with poor bowel prep. 6. CAD s/p CABG and multiple PCI Plan: Obtain MRI with MRCP with and with out contrast. Consider repeat colonoscopy with 2 day bowel prep given last colonoscopy was with poor prep. Patient was advised to inform us if she develops any other episode of pancreatitis. XR FOREARM RT 2 VWS Observed: 10/11/2024 1:55 PM Status: COMPLETED Source: [facility] XR FOREARM RT 2 VWS CLINICAL INFORMATION: Right arm pain TECHNIQUE: XR FOREARM RT 2 VWS 2 views right forearm are obtained. There is no acute osseous, articular, or soft tissue abnormality. IMPRESSION: Negative exam. Finalized by Afshin Barrett MD on 10/11/2024 1:59 PM ECG 12 LEAD ECG Observed: 08/22/2024 7:14 AM Status: COMPLETED Source: [facility] REPOSITORY [facility] Main [address] [address] Electrocardiograph Report Signed Patient: Jose Alberto Saleem MR#: [id number] 571 : 1965 Acct:[id number] Age/Sex: 59 / F ADM Date: 08/20/24 Loc: Room: [address] [place] [address] Type: DIS IN Attending Dr: Kaiser Quijano MD Ordering Provider: Blas Mendoza DO Date of Service: 08/22/24 ECG/ECG 12 [...] abnormality Abnormal ECG Confirmed by Bella Stein ([id number]) on 08/22/2024 11:33:07 PM Referred By: Bella Stein Electronically Signed By: Bella Stein Transcribed By: MUS Signed By Bella Stein MD 4 2333 TROPONIN I HIGH SENSITIVITY Collected: 08/22/2024 4:4 4 AM Status: F Source: [facility] REPOSITORY TYPE CODE TESTS RESULT OUT OF RANGE REFERENCE UNITS LAB HS TROP Troponin I High Sensitivity 1211.6 High Off Scale 0.0-15.0 pg/mL Result Comment: Critical Res ult : Called to and read back by: ROB MCDONALD at: 08/22/2024 06:38:37 by:RAMONA PERFORMED BY: [address] [address] PATHOLOGIST WEFT STRAIGHTENER JANA OLMEDO M.D. Performed By: #### HS TROP # ### [address] ECG 12 LEAD ECG Observed: 08/21/2024 5:46 PM Status: COMPLETED Source: [facility] REPOSITORY [facility] Main [place] [address] [place] [address] Electrocardiograph Report Signed Patient: Jose Alberto Saleem MR#: [id number] 571 : 1965 Acct:[id number] Age/Sex: 59 / F ADM Date: 08/20/24 Loc: Room: [address] [place] [address] Type: DIS IN Attending Dr: Kaiser Quijano MD Ordering Provider: Blas Mendoza DO Date of Service: 08/21/24 ECG/ECG 12 [...] abnormality Abnormal ECG Confirmed by Bella Stein ([id number]) on 08/22/2024 11:33:52 PM Referred By: Bella Stein Electronically Signed By: Bella Stein Transcribed By: MUS Signed By Bella Stein MD 4 2333 COMPLETE BLOOD COUNT AUTO DIFF Collected: 08/21/2024 6:41 AM Status: F Source: F [facility] REPOSITORY TYPE CODE TESTS RESULT OUT OF RANGE REFERENCE UNITS LAB WBC White Blood Count 4.9 Normal 3.8-11.6 10*3/uL LAB UNWBC Uncorrected WBC 4.9 Normal 3.8-11.6 10*3/uL LAB RBC Red Blood Count 4.73 Normal 3.60-5.00 10*6/u L LAB HGB Hemoglobin 14.6 Normal 11.8-15.4 g/dL LAB HCT Hematocrit 42.5 Normal 34.0-46.4 % LAB MCV Mean Corpuscular Volume 89.8 Normal 80-100 fL LAB MCH Mean Corpuscular Hemoglobin 30.8 Normal 24.7-34.3 pg LAB MCHC Mean Corpuscular HGB Conc 34.3 Normal 32.0-35.0 g/dL LAB RDW Red Cell Distribution Width 12.7 Normal 11.9-15.3 % LAB PLT Platelet Count 172 Normal 150-450 10*3/uL LAB MPV Mean Platelet Volume 7.7 Normal 6.3-10.7 fL LAB NE% Neutrophils % (Auto) 49.9 . % LAB LY% Lymphocytes % (Auto) 35.0 . % LAB MO% Monocytes % (Auto) 10.9 . % LAB EO% Eosinophils % (Auto) 3.9 . % LAB BA% Basophils % (Auto) 0.3 . % LAB NRBC% NRBC% 0.1 Normal 0-0.5 /100{WBC } LAB NE# Neutrophils # (Auto) 2.5 Normal 1.8-7.7 10*3/uL LAB LY# Lymphocytes # (Auto) 1.7 Normal 1.00-4.8 10*3/uL LAB MO# Monocytes # (Auto) 0.5 Normal 0.0-0.8 10*3/uL LAB EO# Eosinophils # (Auto) 0.2 Normal 0.0-0.45 10*3/uL LAB BA# Basophils # (Auto) 0.0 Normal 0.0-0.2 10*3/uL Result Comment: PERFORMED BY : [place] [address] PATHOLOGIST WEFT STRAIGHTENER JANA OLMEDO M.D. Performed By: #### CREAT, BU N, PP, CBC, LYTES #### [facility] [address] [place] [address] COAGULATION PROFILE Collected: 08/21/2024 6:[address] atus: F Source: [facility] REPOSITORY TYPE CODE TESTS RESULT OUT OF RANGE REFERENCE UNITS LAB R PT Prothrombin Time 12.2 Normal 9.0-12.9 s Result Comment: A hematocrit value greater than 55% may lead to inaccurate results in coagulation testing. Patients having hematocrit values >55% require a special collection tube for coagulation studies. Please contact the laboratory at [phone] for redraw instructions. LAB INR INR 1.1 Result Comment: INR Therapeu tic Range A) Pre- and Peroperative OAT started two weeks before surgery. NOT HIP SURGERY: 1.5 - 2.5 HIP SURGERY: 2 - 3 B) Primary and secondary prevention of venous THROMBOSIS: 2 - 3 C) Active venous thrombosis, pulmonary embolism and prevention of recurrent venous thrombosis: 2 - 3 D) Prevention of arterial thromboembolism including patients with mechanical heart valves: 3 - 4.5 LAB PTT Partial Thromboplastin Time 35.9 Normal 25.1-36.5 s Result Comment: A hematocrit value greater than 55% may lead to inaccurate results in coagulation testing. Patients having hematocrit values >55% require a special collection tube for coagulation studies. Please contact the laboratory at [phone] for redraw instructions. PERFORMED BY: [place] [address] PATHOLOGIST WEFT STRAIGHTENER JANA OLMEDO M.D. Performed By: #### CREAT, BU N, PP, CBC, LYTES #### [address] ELECTROLYTES Collected: 6:41 AM Status: F Source: [facility] REPOSITORY TYPE CODE TESTS RESULT OUT OF RANGE REFERENCE UNITS LAB NA Sodium 140 Normal 136-145 mmol/L LAB K Potassium 3.9 Normal 3.5-5.1 mmol/L LAB CL Chloride 105 Normal 98-107 mmol/L LAB CO2 Carbon Dioxide 27.9 Normal 21.0-31.0 mmol/L LAB GAP Anion Gap 11.0 Normal 6.0-15.0 meq/L Performed By: #### CREAT, BU N, PP, CBC, LYTES #### [address] BLOOD UREA NITROGEN Collected: 08/21/20 6:41 AM Status: F Source: [facility] REPOSITORY TYPE CODE TESTS RESULT OUT OF RANGE REFERENCE UNITS LAB BUN Blood Urea Nitrogen 14 Normal 7-25 mg/dL Performed By: #### CREAT, BU N, PP, CBC, LYTES #### [address] CREATININE Collected: 08/21/2024 6:41 AM Status: F Source: [facility] REPOSITORY TYPE CODE TESTS RESULT OUT OF RANGE REFERENCE UNITS LAB CREATT Creatinine 0.61 Normal 0.60-1.20 mg/dL LAB GFReNR Estimated GFR >60.0 mL/Min LAB CRCLPHA Creatinine Clr Calc Pharmacy 97.73 Result Comment: PERFORMED BY : [place] [address] PATHOLOGIST WEFT STRAIGHTENER JANA OLMEDO M.D. Performed By: #### CREAT, BU N, PP, CBC, LYTES #### [facility] [address] [place], [place] [id number] [facility] [place] RADHA PERF SPECT REST STR Observed: 08/20/2024 3:52 PM Status: COMPLETED Source: [facility] REPOSITORY [facility] Main [place] [address] [place] [address] Nuclear Medicine Report Signed Patient: Jose Alberto Saleem MR#: [id number] 571 : 1965 Acct:[id number] Age/Sex: 59 / F ADM Date: 08/18/24 Loc: Room: [address] [place] [address] Type: ADM INOo Attending Dr: Chucky Dunn MD Copies to: MD Chucky Cuenca MD W Scott Sheldon, DO Ordering Provider: Blas Mendoza DO Date of Service: 08/20/24 NM/NM radha perf SPECT rest str: chest pain NUCLEAR [...] Bella Stein M.D.08/20/2024 3:56 PM Dictation Location: [place] [address] Transcribed By: [facility] 08/20/24 155 Dictated By: Bella Stein MD 08/20/24 155 Signed By: <Electronically signed by Bella Stein MD in OV> 08/20/24 1556 ECG 12 LEAD ECG Observed: 08/19/2024 1:28 PM Status: COMPLETED Source: [place] [id number] Electrocardiograph Report Signed Patient: Jose Alberto Saleem MR#: [id number] 571 : 1965 Acct:[id number] Age/Sex: 59 / F ADM Date: 08/18/24 Loc: Room: [address] [place] [address] Type: ADM INOo Attending Dr: Chucky Dunn [...] abnormality Abnormal ECG Confirmed by Bella Stein ([id number]) on 08/21/2024 12:00:39 AM Referred By: Bella Stein Electronically Signed By: Bella Stein Transcribed By: MUS Signed By Bella Stein MD 4 0000 ECG 12 LEAD ECG Observed: 08/19/2024 1:06 PM Status: COMPLETED Source: [facility] REPOSITORY [place] [id number] Electrocardiograph Report Signed Patient: Jose Alberto Saleem MR#: [id number] 571 : 1965 Acct:[id number] Age/Sex: 59 / F ADM Date: 08/18/24 Loc: 3T Room: [address] [place] [address] Type: ADM INOo Attending Dr: Chucky Dunn [...] rhythm Leftward axis Confirmed by Torsten Monreal ([id number]) on 08/20/2024 11:52:24 PM Referred By: Bella Stein Electronically Signed By: Torsten Monreal Transcribed By: MUS Signed By Torsten Monreal MD 08/20/24 4607 TROPONIN I HIGH SENSITIVITY Collected: 08/19/2024 6:4 9 AM Status: F Source: [facility] REPOSITORY TYPE CODE TESTS RESULT OUT OF RANGE REFERENCE UNITS LAB HS TROP Troponin I High Sensitivity 4.6 Normal 0.0-15.0 pg/mL Result Comment: PERFORMED BY : [place] [address] PATHOLOGIST WEFT STRAIGHTENER JANA OLMEDO M.D. Performed By: #### A1C WTH e A, HS TROP #### [facility] [address] [place] [address] [place] A1C WITH ESTIMATED AVERAGE GLU Collected: 08/19/2024 6:49 AM Status: F Source: [facility] REPOSITORY TYPE CODE TESTS RESULT OUT OF RANGE REFERENCE UNITS LAB .A1C Hemoglobin A1C 5.7 High 4.3-5.6 % Result Comment: Increased ri sk for diabetes: 5.7 - 6.4 diabetes: >6.4 glycemic control for adults with diabetes: <7.0 LAB eAG Estimated Average Glucose 117 mg/dL Result Comment: PERFORMED BY : [place] [address] PATHOLOGIST WEFT STRAIGHTENER JANA OLMEDO M.D. Performed By: #### A1C WTH e A, HS TROP #### [facility] [address] [place] [address] [place] TROPONIN I HIGH SENSITIVITY Collected: 08/18/2024 11:16 PM Status: F Source: [facility] REPOSITORY TYPE CODE TESTS RESULT OUT OF RANGE REFERENCE UNITS LAB HS TROP Troponin I High Sensitivity 4.7 Normal 0.0-15.0 pg/mL Result Comment: PERFORMED BY : [place] [address] PATHOLOGIST WEFT STRAIGHTENER JANA OLMEDO M.D. Performed By: #### HS TROP # ### [address] XR CHEST 2V* Observed: 08/18/2024 10:11 PM Status: COMPLETED Source: [facility] REPOSITORY [facility] Main [place] [address] [place] [address] XRay Report Signed Patient: Jose Alberto Saleem MR#: [id number] 571 : 1965 Acct:[id number] Age/Sex: 59 / F ADM Date: 08/18/24 Loc: Room: [address] [place] [address] Type: ADM INOo Attending Dr: Donis Arroyo [...] Thelma Wick M.D.08/19/2024 12:10 AM Dictation Location: [place] [address] Transcribed By: [facility] 08/19/24 0010 Dictated By: Thelma Wick MD 08/18/24 2211 Signed By: <Electronically signed by MD Thelma Wick in [place]> 08/19/24 0010 COMPLETE BLOOD COUNT AUTO DIFF Collected: 08/18/2024 9:01 PM Status: F Source: [facility] REPOSITORY TYPE CODE TESTS RESULT OUT OF RANGE REFERENCE UNITS LAB WBC White Blood Count 6.1 Normal 3.8-11.6 10*3/uL LAB UNWBC Uncorrected WBC 6.1 Normal 3.8-11.6 10*3/uL LAB RBC Red Blood Count 4.92 Normal 3.60-5.00 10*6/u L LAB HGB Hemoglobin 15.1 Normal 11.8-15.4 g/dL LAB HCT Hematocrit 43.7 Normal 34.0-46.4 % LAB MCV Mean Corpuscular Volume 88.8 Normal 80-100 fL LAB MCH Mean Corpuscular Hemoglobin 30.7 Normal 24.7-34.3 pg LAB MCHC Mean Corpuscular HGB Conc 34.5 Normal 32.0-35.0 g/dL LAB RDW Red Cell Distribution Width 12.6 Normal 11.9-15.3 % LAB PLT Platelet Count 204 Normal 150-450 10*3/uL LAB MPV Mean Platelet Volume 7.9 Normal 6.3-10.7 fL LAB MDW Monocyte Distribution Width 16.97 Normal 0.00-20.00 % LAB NE% Neutrophils % (Auto) 48.8 . % LAB LY% Lymphocytes % (Auto) 36.5 . % LAB MO% Monocytes % (Auto) 10.5 . % LAB EO% Eosinophils % (Auto) 3.5 . % LAB BA% Basophils % (Auto) 0.7 . % LAB NRBC% NRBC% 0.1 Normal 0-0.5 /100{WBC } LAB NE# Neutrophils # (Auto) 3.0 Normal 1.8-7.7 10*3/uL LAB LY# Lymphocytes # (Auto) 2.2 Normal 1.00-4.8 10*3/uL LAB MO# Monocytes # (Auto) 0.6 Normal 0.0-0.8 10*3/uL LAB EO# Eosinophils # (Auto) 0.2 Normal 0.0-0.45 10*3/uL LAB BA# Basophils # (Auto) 0.0 Normal 0.0-0.2 10*3/uL Result Comment: PERFORMED BY : [place] [address] PATHOLOGIST WEFT STRAIGHTENER JANA OLMEDO M.D. Performed By: #### HS TROP, LIPASE, PT, BMP, HEPATIC, CK, CBC, BNP #### [facility] [address] [place] [address] [facility] BASIC METABOLIC PANEL Collected: 2023 9:01 PM Status: F Source: [facility] REPOSITORY TYPE CODE TESTS RESULT OUT OF RANGE REFERENCE UNITS LAB GLU Glucose 94 Normal 70-100 mg/dL Result Comment: Random Gluco se Reference Range is dependent on time and content of last meal. Glucose of more than 200 mg/dL in a nonstressed, ambulatory subject supports the diagnosis of Diabetes Mellitus. ADA recommended reference range LAB BUN Blood Urea Nitrogen 22 Normal 7-25 mg/dL LAB CREATT Creatinine 0.62 Normal 0.60-1.20 mg/dL LAB GFReNR Estimated GFR >60.0 mL/Min LAB NA Sodium 137 Normal 136-145 mmol/L LAB K Potassium 4.1 Normal 3.5-5.1 mmol/L LAB CL Chloride 102 Normal 98-107 mmol/L LAB CO2 Carbon Dioxide 28.4 Normal 21.0-31.0 mmol/L LAB GAP Anion Gap 10.7 Normal 6.0-15.0 meq/L LAB CA Calcium 10.1 Normal 8.6-10.3 mg/dL LAB CRCLPHA Creatinine Clr Calc Pharmacy 95.72 Result Comment: PERFORMED BY : [facility] [address] [place] [address] PATHOLOGIST WEFT STRAIGHTENER JANA OLMEDO M.D. Performed By: #### HS TROP, LIPASE, PT, BMP, HEPATIC, CK, CBC, BNP #### [facility] [address] [place] [address] [facility] PROTHROMBIN TIME INR Collected: 9:01 PM Status: F Source: [facility] REPOSITORY TYPE CODE TESTS RESULT OUT OF RANGE REFERENCE UNITS LAB R PT Prothrombin Time 11.7 Normal 9.0-12.9 s Result Comment: A hematocrit value greater than 55% may lead to inaccurate results in coagulation testing. Patients having hematocrit values >55% require a special collection tube for coagulation studies. Please contact the laboratory at [phone] for redraw instructions. LAB INR INR 1.0 Result Comment: INR Therapeu tic Range A) Pre- and Peroperative OAT started [...] heart valves: 3 - 4.5 PERFORMED BY: [place] [address] PATHOLOGIST WEFT STRAIGHTENER JANA OLMEDO M.D. Performed By: #### HS TROP, LIPASE, PT, BMP, HEPATIC, CK, CBC, BNP #### [address] B-TYPE NATRIURETIC PEPTIDE Collected: 08/18/2024 9:01 PM Status: F Source: [facility] REPOSITORY TYPE CODE TESTS RESULT OUT OF RANGE REFERENCE UNITS LAB BNP B-Type Natriuretic Peptide 31.0 Normal 5-100 pg/mL Result Comment: PERFORMED BY : [place] [address] PATHOLOGIST WEFT STRAIGHTENER JANA OLMEDO M.D. Performed By: #### HS TROP, LIPASE, PT, BMP, HEPATIC, CK, CBC, BNP #### [place] [id number] [place] CREATINE KINASE Collected: 9:01 PM Status: F Source: [facility] REPOSITORY TYPE CODE TESTS RESULT OUT OF RANGE REFERENCE UNITS LAB CK Creatine Kinase 53 Normal 30-223 U/L Performed By: #### HS TROP, LIPASE, PT, BMP, HEPATIC, CK, CBC, BNP #### [facility] [address] [place], [place] [id number] [facility] TROPONIN I HIGH SENSITIVITY Collected: 08/18/2024 9:0 1 PM Status: F Source: [facility] REPOSITORY TYPE CODE TESTS RESULT OUT OF RANGE REFERENCE UNITS LAB HS TROP Troponin I High Sensitivity 5.1 Normal 0.0-15.0 pg/mL Result Comment: PERFORMED BY : [place] [address] PATHOLOGIST WEFT STRAIGHTENER JANA OLMEDO M.D. Performed By: #### HS TROP, LIPASE, PT, BMP, HEPATIC, CK, CBC, BNP #### [facility] [address] [place] [id number] [facility] HEPATIC PANEL Collected: 08/18/2024 9:01 PM Status: F Source: [facility] REPOSITORY TYPE CODE TESTS RESULT OUT OF RANGE REFERENCE UNITS LAB TP Total Protein 6.9 Normal 6.4-8.9 g/dL LAB ALB Albumin Level 4.3 Normal 3.5-5.7 g/dL LAB GLOB Globulin 2.6 g/dL LAB AGRATIO Albumin/Globulin Ratio 1.7 LAB BILIT Bilirubin,Total 0.4 Normal 0.3-1.0 mg/dL LAB BILID Bilirubin,Direct 0.10 Normal 0.03-0.18 mg/dL LAB BILII Bilirubin,Indirect 0.3 mg/dL LAB AST Aspartate Amino Transferase 31 Normal 13-39 U/L LAB ALT Alanine Aminotransferase 42 Normal 7-52 U/L LAB ALP Alkaline Phosphatase 89 Normal 34-104 U/L Performed By: #### HS TROP, LIPASE, PT, BMP, HEPATIC, CK, CBC, BNP #### [facility] [address] [place] [id number] [facility] BASIC METABOLIC PANEL Collected: 2023 9:01 PM Status: F Source: [facility] REPOSITORY TYPE CODE TESTS RESULT OUT OF RANGE REFERENCE UNITS LAB GLU Glucose 94 Normal 70-100 mg/dL Result Comment: Random Gluco se Reference Range is dependent on time and content of last meal. Glucose of more than 200 mg/dL in a nonstressed, ambulatory subject supports the diagnosis of Diabetes Mellitus. ADA recommended reference range LAB BUN Blood Urea Nitrogen 22 Normal 7-25 mg/dL LAB CREATT Creatinine 0.62 Normal 0.60-1.20 mg/dL LAB GFReNR Estimated GFR >60.0 mL/Min LAB NA Sodium 137 Normal 136-145 mmol/L LAB K Potassium 4.1 Normal 3.5-5.1 mmol/L LAB CL Chloride 102 Normal 98-107 mmol/L LAB CO2 Carbon Dioxide 28.4 Normal 21.0-31.0 mmol/L LAB GAP Anion Gap 10.7 Normal 6.0-15.0 meq/L LAB CA Calcium 10.1 Normal 8.6-10.3 mg/dL LAB CRCLPHA Creatinine Clr Calc Pharmacy 95.72 Performed By: #### HS TROP, LIPASE, PT, BMP, HEPATIC, CK, CBC, BNP #### [place] [id number] [facility] LIPASE Collected: 9:01 PM Status: F Source: [facility] REPOSITORY TYPE CODE TESTS RESULT OUT OF RANGE REFERENCE UNITS LAB LIPASE Lipase 110.0 High 11.0-82.0 U/L Result Comment: PERFORMED BY : [place] [address] PATHOLOGIST WEFT STRAIGHTENER JANA OLMEDO M.D. Performed By: #### HS TROP, LIPASE, PT, BMP, HEPATIC, CK, CBC, BNP #### [place] [id number] [facility] ECG 12 LEAD ECG Observed: 08/18/2024 8:52 PM Status: COMPLETED Source: [facility] REPOSITORY [facility] [address] Electrocardiograph Report Signed Patient: Jose Alberto Saleem MR#: [id number] 571 : 1965 Acct:[id number] Age/Sex: 59 / F ADM Date: 08/18/24 Loc: ER Room: Type: [facility] ER Attending Dr: Ordering Provider: Lynnette [...] wave abnormality Confirmed by Lynnette Chapman MD ([id number]) on 08/18/2024 11:22:40 PM Referred By: Electronically Signed By: Lynnette Chapman MD Transcribed By: MUS Signed By Lynnette Chapman MD 08/01 05/24 5770 REMINDERS Observed: 08/05/2024 1:08 PM Status: F Source: [facility] REPOSITORY Reminders From: Magdalena Longoria To: EU - Administrative; Sent: 08/05/2024 13:08:24 EST Show up: 03/01/2025 13:08:00 EDT Subject: 1 yr reminder Due Date/Time: 08/01/2025 13:08:00 EDT Reminder/Recall Patient needs scheduled with [facility] for a 1 yr f/u with [facility] UROLOGY OFFICE/CLINIC NOTE Observed: 01/2024 12:20 PM Status: F Source: [facility] REPOSITORY Urology Office/Clinic Note Chief Complaint OAB HPI [...] Myrbetriq from 25mg to 50mg qd Ordered: 49730 Measure Post Void residual urine and/or bladder capacity by US- non- imaging E&M of Est. Patient Moderate 30-39 Min 79926 Urnls Dip Stick Auto w/o Microscopy POC 77988 2. Urethral pain (R39.89: Other symptoms and [...] 90 tab(s), Refills(s) 3, Pharmacy: [facility] [id number], 160, cm, 08/05/24 11:29:00 EST, Height/Length Dosing, 74.2, kg, 08/05/24 11:29:00 EST, Weight Dosing tamsulosin, 0.4 mg = 1 cap(s), Oral, Daily, # 90 cap(s), Refills(s) 3, Pharmacy: [facility], 160, cm, 08/05/24 11:29:00 EST, Height/Length Dosing, 74.2, kg, 08/05/24 11:29:00 EST, Weight Dosing Follow-up With When Contact Information TIFFANI MARTINO PA-C, URL Within 1 year Additional Instructions: Patient Education Kidney Stones, Fosl-jb-Vefg Problem List/Past Medical History Ongoing Anticoagulated Feeling of incomplete bladder emptying Kidney stone Left flank pain Mixed stress and urge incontinence OAB (overactive bladder) Urethral pain Historical Kidney stone Procedure/Surgical History Esophagoscopy, flexible, transoral; with endoscopic ultrasound examination (03/06/2024), Excision of ganglion cyst (11/2019), Cystoscopic removal of ureteric stent (12/03/2018), Appendectomy, CABG (Coronary artery bypass grafting) planned, Cholecystectomy, Gastric bypass, Repair of inguinal hernia. Medications aspirin, 81 mg atorvastatin, 20 mg, Oral, Daily Bariatric Multivitamins with 45 mg Iron, Oral, Daily cevimeline, See Instructions citalopram 40 mg Tab Estrace 0.1 mg/g Cream, See Instructions, 6 refills fluticasone 0.05 mg/inh Nasal [place] mirabegron 50 mg oral tablet, extended release, 50 mg= 1 tab(s), Oral, Daily, 3 refills Multi Vitamin+ PreserVision AREDS rabeprazole 20 mg oral enteric coated tablet, Oral, Daily tamsulosin 0.4 mg Cap, 0.4 mg= 1 cap(s), Oral, Daily, 3 refills Allergies Latex (Anaphylaxis) Levaquin (Thrush) baclofen (Hypoxia) penicillins (Anaphylaxis) rosuvastatin (Elevated liver enzymes level) sulfa drugs (Hives) tobramycin (Rash) Social History Alcohol - Low Risk, 10/27/2019 Never., 07/31/2024 Substance Abuse Never., 07/31/2024 Tobacco Never (less than 100 in lifetime) Tobacco Use:. Household tobacco concerns: No., 08/05/2024 Family History Family history is unknown Immunizations Vaccine Date Status influenza, unspecified formulation 06/01/2024 Given Lab Results Ambulatory Point of Care Results Bilirubin Urine Dipstick: Negative (08/05/24 11:07:00) Blood Urine Dipstick: Negative (08/05/24 11:07:00) Glucose Urine Dipstick: Negative (08/05/24 11:07:00) Ketones Urine Dipstick: Negative (08/05/24 11:07:00) Leukocytes Urine Dipstick: Negative (08/05/24 11:07:00) Nitrite Urine Dipstick: Negative (08/05/24 11:07:00) Protein Urine Dipstick: Negative (08/05/24 11:07:00) Specific [place] Urine Dipstick: 1.010 (08/05/24 11:07:00) Urine Appearance Urine Dipstick: Clear (08/05/24 11:07:00) Urine Color Urine Dipstick: Yellow (08/05/24 11:07:00) Urobilinogen Urine Dipstick: Normal 0.2-1 EU/dl (08/05/24 11:07:00) pH Urine Dipstick: 6 (08/05/24 11:07:00) Result Comment: Electronical ly Signed By: TIFFANI MARTINO PA-C.pepe\Date and Time Signed: 08/05/24 12:20 EST PATIENT EDUCATION Observed: 08/05/2024 12:20 PM Status: F Source: [facility] REPOSITORY Patient Education Urology Kidney Stones Kidney stones [...] these instructions at home: Medicines ??? Take xuuz-noo-snvryjb and prescription medicines only as told by [...] provider. Document Revised: 05/11/2023 Document Reviewed: 05/11/2023 [employer] Patient Education ? 2023 [employer]. UROLOGY OFFICE/CLINIC NOTE Observed: 08/2024 4:08 PM Status: F Source: [facility] REPOSITORY Urology Office/Clinic Note Chief Complaint 1+yr K[facility] [...] E&M of Est. Patient High 40-54 Min 59413 Urnls Dip Stick Auto w/o Microscopy POC 89656 2. OAB (overactive bladder) (N32.81: Overactive bladder) [...] E&M of Est. Patient High 40-54 Min 91894 3. Urethral pain (R39.89: Other symptoms and [...] E&M of Est. Patient High 40-54 Min 51511 Orders: estradiol topical, See Instructions, 42.5 gm, Refill(s) 6, apply a pea-sized amount vaginally and around the urethra nightly x 3 weeks, then 3x per week thereafter, [facility] #[id number], 160, cm, 04/10/24 15:13:00 EDT, Height/Length Dosing, 74, kg, 04/10/24 15:13... mirabegron, 25 mg = 1 tab(s), Oral, Daily, do not fill both mirabegron AND vibegron. only fill whichever has lower co-pay., X 30 day(s), # 30 tab(s), Refills(s) 11, Pharmacy: [facility] #[id number], 160, cm, 04/10/24 15:13:00 EDT, Height/Length Dosing, 74, k... vibegron, 75 mg = 1 tab(s), Oral, Daily, X 30 day(s), # 30 tab(s), Refills(s) 11, Pharmacy: [facility] #[id number], 160, cm, 04/10/24 15:13:00 EDT, Height/Length Dosing, 74, kg, 04/10/24 15:13:00 EDT, Weight Dosing Total time spent reviewing previous notes/results/external documents, preparing the chart, conducting the encounter with the patient and family, ordering tests/medications, and documenting the encounter was 40 minutes. Follow-up With When Contact Information SALENA REDDY, TIFFANI López, CARLOS Within 3 months [address] [place] [address] Additional Instructions: Patient Education Kidney Stones, Sfyi-xq-Wkzj Problem List/Past Medical History Ongoing Anticoagulated Feeling of incomplete bladder emptying Kidney stone Left flank pain Mixed stress and urge incontinence OAB (overactive bladder) Urethral pain Historical Kidney stone Procedure/Surgical History Esophagoscopy, flexible, transoral; with endoscopic ultrasound examination (03/06/2024), Excision of ganglion cyst (11/2019), Cystoscopic removal of ureteric stent (12/03/2018), Appendectomy, CABG (Coronary artery bypass grafting) planned, Cholecystectomy, Gastric bypass, Repair of inguinal hernia. Medications aspirin, 81 mg atorvastatin, 20 mg, Oral, Daily Bariatric Multivitamins with 45 mg Iron, Oral, Daily cevimeline, See Instructions citalopram 40 mg Tab Estrace 0.1 mg/g Cream, See Instructions, 6 refills fluticasone 0.05 mg/inh Nasal [place] Gemtesa 75 mg oral tablet, 75 mg= 1 tab(s), Oral, Daily, 11 refills mirabegron 25 mg oral tablet, extended release, 25 mg= 1 tab(s), Oral, Daily, 11 refills Multi Vitamin+ PreserVision AREDS rabeprazole 20 mg oral enteric coated tablet, Oral, Daily tamsulosin 0.4 mg Cap, 0.4 mg= 1 cap(s), Oral, Daily, 3 refills Allergies Latex (Anaphylaxis) Levaquin (Thrush) baclofen (Hypoxia) penicillins (Anaphylaxis) rosuvastatin (Elevated liver enzymes level) sulfa drugs (Hives) tobramycin (Rash) Social History Alcohol - Low Risk, 10/27/2019 Tobacco Never (less than 100 in lifetime) Tobacco Use:. Never Smokeless Tobacco Use:. Household tobacco concerns: No. Yes, 04/10/2024 Family History Family history is unknown Lab Results Ambulatory Point of Care Results Bilirubin Urine Dipstick: Negative (04/10/24 15:06:00) Blood Urine Dipstick: Negative (04/10/24 15:06:00) Glucose Urine Dipstick: Negative (04/10/24 15:06:00) Ketones Urine Dipstick: Negative (04/10/24 15:06:00) Leukocytes Urine Dipstick: Trace (04/10/24 15:06:00) Nitrite Urine Dipstick: Negative (04/10/24 15:06:00) Protein Urine Dipstick: Negative (04/10/24 15:06:00) Specific [place] Urine Dipstick: 1.015 (04/10/24 15:06:00) Urine Appearance Urine Dipstick: Clear (04/10/24 15:06:00) Urine Color Urine Dipstick: Yellow (04/10/24 15:06:00) Urobilinogen Urine Dipstick: Normal 0.2-1 EU/dl (04/10/24 15:06:00) pH Urine Dipstick: 5.5 (04/10/24 15:06:00) Result Comment: Electronical ly Signed By: TIFFANI MARTINO PA-C.br\Date and Time Signed: 04/10/24 16:09 EDT PATIENT EDUCATION Observed: 04/10/2024 4:08 PM Status: F Source: [facility] REPOSITORY Patient Education Urology Kidney Stones Kidney stones [...] these instructions at home: Medicines ? Take qtiw-sgl-vjessed and prescription medicines only as told by [...] provider. Document Revised: 05/22/2022 Document Reviewed: 05/22/2022 [employer] Patient Education ? 2022 [employer] REMINDERS Observed: 04/10/2024 3:56 PM Status: C Source: [facility] REPOSITORY Reminders From: Bruna Gabriel To: EU - Administrative; Sent: 04/10/2024 15:56:05 EDT Show up: 06/05/2024 15:55:00 EDT Subject: 8 to 10 wk f/u Due Date/Time: 06/19/2024 15:54:00 EDT Reminder/Recall patient seen on 04/10/2024. patient needs an 8 to 10 wk f/u. Appointment due by 06/19/2024 [place] with [facility] PT SCHEDULED JUL 03, 2024 BEDSIDE GLUCOSE LAB Collected: 03/06/2024 12:08 PM Status: COMPLETED Source: [facility] REPOSITORY TYPE CODE TESTS RESULT OUT OF RANGE REFERENCE UNITS LAB BEDG(LOINC) BEDSIDE GLUCOSE LAB 79 65-99 mg/dL 36 Observed: 02/28/2024 9:16 AM Status: COMPLETED Source: [facility] REPOSITORY Scheduled EGD/EUS 03/06/24 @11 30, PTH, Dr. Cesar, PAT ph: 02/29/24 @1000, #[id number], Clinic appt 02/27/24 w/ Sherita. VITAMIN D 25 HYDROXY Collected: 12:18 PM Status: UNK Source: [facility] REPOSITORY TYPE CODE TESTS RESULT OUT OF RANGE REFERENCE UNITS LAB [id number] CALCIDIOL (25 [place] VITAMIN D3) (NG/ML) IN SER/PLAS 62.1 30.0-80.0 ng/mL Result Comment: >80.0 Toxici ty possible Performed By: #### [id number] ## ## [facility] ([facility]) [address] [place] [address] MITOCHONDRIAL ANTIBODIES, M2 Collected: 02/27/2024 12 :18 PM Status: UNK Source: [facility] REPOSITORY TYPE CODE TESTS RESULT OUT OF RANGE REFERENCE UNITS LAB [id number] MITOCHONDRIAL M2 ANTIBODY 7.2 0.0-24.9 Units Result Comment: REFERENCE IN TERVAL: Mitochondrial (M2) Antibody, IgG 20.0 Units or [...] does not rule out PBC. Performed By: [facility] [address] [place] [address] Bait Painter: Sarwat Gorman MD, PhD CLIA Number: [id number] Performed By: #### [id number] ## ## [facility] [address] [place] [address] IGG 1, 2, 3, AND 4 Collected: 4 12:18 PM Status: UNK Source: [facility] REPOSITORY TYPE CODE TESTS RESULT OUT OF RANGE REFERENCE UNITS LAB [id number] IGG SUBCLASS 1 (MG/DL) IN SERUM 542 401-7772 mg/dL Result Comment: REFERENCE IN TERVAL: Immunoglobulin G Subclass 1 The total IgG (mg/dL) can be derived from the sum of the subclass IgG1, IgG2, IgG3, and IgG4 values. However, a confirmatory and more precise total IgG is available by the turbidimetric method of quantitation for total IgG. Refer to test Immunoglobulin G, Serum ([id number]). Access complete set of age- and/or gender-specific reference intervals for this test in the [facility] Test Directory ([facility]). LAB [id number] IGG SUBCLASS 2 (MG/DL) IN SERUM 160 124-549 mg/dL Result Comment: REFERENCE IN TERVAL: Immunoglobulin G Subclass 2 Access complete set of age- and/or gender-specific reference intervals for this test in the [facility] Test Directory ([facility]). LAB [id number] IGG SUBCLASS 3 (MG/DL) IN SERUM 32 21-134 mg/dL Result Comment: REFERENCE IN TERVAL: Immunoglobulin G Subclass 3 Access complete set of age- and/or gender-specific reference intervals for this test in the [facility] Test Directory ([employer]). LAB [id number] IGG SUBCLASS 4 (MG/DL) IN SERUM 21 1-123 mg/dL Result Comment: REFERENCE IN TERVAL: Immunoglobulin G Subclass 4 Access complete set of age- and/or gender-specific reference intervals for this test in the [facility] Test Directory ([employer]). Performed By: [facility] [address] [place] [address] Bait Painter: Sarwat Gorman MD, PhD CLIA Number: [id number] Performed By: #### [id number] # ### [employer] ([facility] [address] [place] [id number] COPPER, SERUM Collected: 4 12:18 PM Status: UNK Source: [facility] REPOSITORY TYPE CODE TESTS RESULT OUT OF RANGE REFERENCE UNITS LAB [id number] COPPER 125.0 80.0-155.0 ug/dL Result Comment: INTERPRETIVE INFORMATION: Copper, Serum or Plasma Elevated results [...] developed and its performance characteristics determined by [facility]. It has not been cleared or approved by the [place] Food and Drug Administration. This test was performed in a CLIA certified laboratory and is intended for clinical purposes. Performed By: [facility] [address] [place] [address] Bait Painter: Sarwat Gorman MD, PhD CLIA Number: [id number] Performed By: #### [id number] ## ## [facility] ([facility]) [address] [place] [address] TISSUE TRANSGLUTAMINASE, IGA Collected: 02/27/2024 12:18 PM Status: UNK Source: [facility] REPOSITORY TYPE CODE TESTS RESULT OUT OF RANGE REFERENCE UNITS LAB [id number] TISSUE TRANSGLUTAM INASE, IGA <1.02 0.00-4.99 FLU Result Comment: INTERPRETIVE INFORMATION: Tissue Transglutaminase (tTG) Antibody, IgA Presence [...] indicate a response to therapy. Performed By: [facility] [address] [place], [place] [id number] Bait Painter: Sarwat Gorman MD, PhD CLIA Number: [id number] Performed By: #### [id number] ## ## [facility] ([facility]) [address] [place] [address] CHAY Collected: 12:18 PM Status: UNK Source: [facility] REPOSITORY TYPE CODE TESTS RESULT OUT OF RANGE REFERENCE UNITS LAB [id number] CHAY TITER <1:40 <=1:40 NA Result Comment: Test perform ed using BRIJESH IFA CHAY Hep-2 Test, a pre-standardized assay designed for the qualitative and semi-quantitative detection of antinuclear antibodies. Performed By: #### [id number] ## ## [facility] (BEAKER) [address] [place] [address] LIVER FIBROSIS CHRONIC VIRAL HEPATITIS Collected: 02/27/2024 12:18 PM Status: UNK Source: [facility] REPOSITORY TYPE CODE TESTS RESULT OUT OF RANGE REFERENCE UNITS LAB [id number] JYNJA-2-[id number] B ULIN, FIBROMETER 328 High 131-293 mg/dL LAB [id number] ALANINE AMINOTRANSFERASE, FIBROMETER 57 High 5-40 U/L LAB [id number] ASPARTATE AMINOTRANSFERASE, FIBROMETER 41 High 9-40 U/L LAB [id number] GAMMA GLUTAMYL TRANSFERASE, FIBROMETER 18 7-33 U/L LAB [id number] UREA NITROGEN, SERUM, FIBROMETER 28 High 7-20 mg/dL LAB [id number] FIBROMETER PLATELET COUNT 198 k/uL LAB [id number] FIBROMETER PROTHROMBIN INDEX 81 Low 90-120 % LAB [id number] FIBROMETER PATIENT SCORE 0.62 LAB [id number] CIRRHOMETER PATIENT SCORE 0.08 LAB [id number] FIBROSIS METAVIR CLASSIFICATION F2[F1-F3] Result Comment: INTERPRETIVE INFORMATION: Fibrosis Metavir Classification FibroMeter (fibrosis score) [...] Predominance of F4, but F3 is possible LAB [id number] INFLAMETER PATIENT SCORE 0.62 LAB [id number] INFLAMETER METAVIR CLASSIFICATION A1/A2 Result Comment: INTERPRETIVE INFORMATION: InflaMeter Metavir Classification InflaMeter (activity score) comments A0/A1 Equal probability between A0 and A1 A1/A2 Equal probability between A1 and A2 A2/A3 Equal probability between A2 and A3 LAB [id number] EER FIBROMETER REPORT See Note Result Comment: Authorized i ndividuals can access the [facility] Enhanced Report using the following link: [email or web address] LAB [id number] FIBROMETER INTERPRETATION See Report Result Comment: [17] [13] INTERPRETIVE INFORMATION: Fibrometer Interpretation Calculations for the final report are based on accurate data for age, gender, and platelet count. If any of this information needs to be corrected, please contact [employer] Client [employer] to request a recalculation. Client Services may be contacted at . The [employer] FibroMeter profile serves as a surrogate marker [...] developed and its performance characteristics determined by [facility]. It has not been cleared or approved by the [place] Food and Drug Administration. This test was performed in a CLIA certified laboratory and is intended for clinical purposes. Performed By: [facility] [address] [place] [address] Bait Painter: Sarwat Gorman MD, PhD CLIA Number: [id number] Performed By: #### [id number] # ### [facility] ([facility]) [address] [place] [address] FERRITIN Collected: 12:18 PM Status: UNK Source: [facility] REPOSITORY TYPE CODE TESTS RESULT OUT OF RANGE REFERENCE UNITS LAB [id number] FERRITIN (NG/ML) IN SER/PLAS 32.0 11.0-307.0 ng/mL Performed By: #### [id number] ### # [facility] ([facility]) [address] [place] [address] HEPATITIS PANEL, ACUTE Collected: 02/26 12:18 PM Status: UNK Source: [facility] REPOSITORY TYPE CODE TESTS RESULT OUT OF RANGE REFERENCE UNITS LAB 2131609 HEPATITIS B VIRUS SURFACE AG PRESENCE IN SERUM Nonreactive Nonreactive LAB 1490391 HEPATITIS A VIRUS IGM AB PRESENCE IN SER/PLAS Nonreactive Nonreactive LAB 2178328 HEPATITIS C VIRUS AB PRESENCE IN SERUM Nonreactive Nonreactive LAB 3936210 HEPATITIS B VIRUS CORE AB (PRESENCE) IN SER/PLAS BY IMM Nonreactive Nonreactive Performed By: #### [id number] ## ## [facility] ([facility]) [address] [place] [address] HEMOGLOBIN A1C Collected: 02/27/2024 12:18 PM Status : UNK Source: [facility] REPOSITORY TYPE CODE TESTS RESULT OUT OF RANGE REFERENCE UNITS LAB 9357071 HEMOGLOBIN A1C/HEMOGLOBIN TOTAL IN BLOOD 5.1 4.0-6.0 % LAB 294 ESTIMATED AVERAGE GLUCOSE (MG/DL) IN BLOOD 100 mg/dL Performed By: #### [id number] ### # [facility] ([facility]) [address] [place] [address] ANTI-SMOOTH MUSCLE ANTIBODY TITER Collected: 02/27/2024 12:18 PM Status: UNK Source: [facility] REPOSITORY TYPE CODE TESTS RESULT OUT OF RANGE REFERENCE UNITS LAB [id number] SMOOTH MUSCLE AB, IGG TITER <1:20 <1:20 Result Comment: INTERPRETIVE INFORMATION: Smooth Muscle Ab, IgG Titer Less than 1:20 ........ Negative - No antibody detected. 1:20 - 1:80 .......... Weak Positive - Suggest repeat in two to three weeks with fresh specimen. 1:160 or greater ...... Positive - Suggestive of autoimmune hepatitis or chronic active hepatitis. Performed By: [facility] [address] [place] [address] Bait Painter: Sarwat Gorman MD, PhD CLIA Number: [id number] Performed By: #### [id number] ## ## [facility] (BEAKER) [address] [place], [place] [id number] CBC WITH AUTO DIFFERENTIAL Collected: 0 02/27/2024 12:18 PM Status: UNK Source: [facility] REPOSITORY TYPE CODE TESTS RESULT OUT OF RANGE REFERENCE UNITS LAB [id number] LEUKOCYTES(10*3/ UL) IN BLOOD BY AUTOMATED COUNT 5.33 4.00-10.60 10*3/uL LAB 0231240 ERYTHROCYTES (10*6/UL) IN BLOOD BY AUTOMATED COUNT 4.90 3.80-5.00 10*6/uL LAB 4613747 HEMOGLOBIN (G/DL) IN BLOOD 14.8 12.0-15.0 g/dL LAB 2939280 HEMATOCRIT (%) IN BLOOD BY AUTOMATED COUNT 44.0 36.0-48.0 % LAB 7060153 ERYTHROCYTE MEAN CORPUSCULAR VOLUME (FL) BY AUTOMATED COUNT 89.8 82.0-98.0 fL LAB 2297486 ERYTHROCYTE MEAN CORPUSCULAR HEMOGLOBIN (PG) BY AUTOMATED COUNT 30.2 27.0-33.0 pg LAB 5972711 ERYTHROCYTE MEAN CORPUSCULAR HEMOGLOBIN CONCENTRATION (G/DL) BY AUTOMATED 33.6 32.0-35.0 g/dL LAB 7212743 ERYTHROCYTE DISTRIBUTION WIDTH (RATIO) BY AUTOMATED COUNT 12.6 11.5-15.0 % LAB 8102375 NEUTROPHILS/100 LEUKOCYTES IN BLOOD BY AUTOMATED COUNT 64.2 40.0-72.0 % LAB 9698594 LYMPHOCYTES/100 LEUKOCYTES IN BLOOD BY AUTOMATED COUNT 22.3 20.0-45.0 % LAB 1745599 MONOCYTES/100 LEUKOCYTES IN BLOOD BY AUTOMATED COUNT 9.9 5.0-12.0 % LAB 2583685 EOSINOPHILS/100 LEUKOCYTES IN BLOOD BY AUTOMATED COUNT 3.2 0.0-6.0 % LAB 0091399 BASOPHILS/100 LEUKOCYTES IN BLOOD BY AUTOMATED COUNT 0.2 0.0-1.0 % LAB 6739384 NEUTROPHILS (10*3/UL) IN BLOOD BY AUTOMATED COUNT 3.42 1.60-7.60 10*3/uL LAB 2769261 LYMPHOCYTES (10*3/UL) IN BLOOD BY AUTOMATED COUNT 1.19 Low 1.20-4.00 10*3/uL LAB 1784672 MONOCYTES (10*3/UL) IN BLOOD BY AUTOMATED COUNT 0.53 0.10-1.00 10*3/uL LAB 9969816 EOSINOPHILS (10*3/UL) IN BLOOD BY AUTOMATED COUNT 0.17 0.00-0.50 10*3/uL LAB 6475875 BASOPHILS (10*3/UL) IN BLOOD BY AUTOMATED COUNT 0.01 0.00-0.20 10*3/uL LAB 0417149 PLATELETS (10*3/UL) IN BLOOD AUTOMATED COUNT 198 150-400 10*3/uL LAB 254 NRBC (PER 100 WBCS) BY AUTOMATED COUNT 0.0 0 % LAB 1767 IMMATURE GRANULOCYTES/100 LEUKOCYTES IN BLOOD BY AUTOMATED COUNT 0.2 0.0-1.0 % LAB 1768 IMMATURE GRANULOCYTES (10*3/UL) IN BLOOD BY AUTOMATED COUNT 0.01 0.00-0.20 10*3/uL Performed By: #### [id number] # ### [facility] (ALDO) [address] [place] [address] LIPID PANEL Collected: 02/27/2024 12:18 PM Status: U NK Source: [facility] REPOSITORY TYPE CODE TESTS RESULT OUT OF RANGE REFERENCE UNITS LAB 8046040 TRIGLYCERIDE (MG/DL) IN SER/PLAS 144 40-149 mg/dL Result Comment: TRIGLYCERIDE REFERENCE RANGE: 20 YEARS AND OLDER CARDIOVASCULAR RISK LESS THAN 150 mg/dL LOW RISK 150 TO 199 mg/dL BORDERLINE RISK 200 mg/dL AND GREATER HIGH RISK LAB 2769963 CHOLESTEROL (MG/DL) IN SER/PLAS 111 Low 120-200 mg/dL LAB 5448399 CHOLESTEROL IN LDL (MG/DL) IN SERUM OR PLASMA BY CALCULATION 44 0-160 mg/dL LAB 4414297 CHOLESTEROL IN HDL (MG/DL) IN SER/PLAS 38 23-92 mg/dL LAB 5477979 NON HDL CHOL. (LDL+VLDL) 73 NA LAB 5968083 TOTAL VLDL-C 29 0-40 mg/dL LAB 2481 CHOL/HDL 2.9 mg/dL Performed By: #### [id number] ### # [facility] ([facility]) [address] [place] [address] IRON AND TIBC Collected: 02/27/2024 12:18 PM Status: UNK Source: [facility] REPOSITORY TYPE CODE TESTS RESULT OUT OF RANGE REFERENCE UNITS LAB 3233914 IRON (UG/DL) IN SER/PLAS 56 50-212 ug/dL LAB 4335145 IRON BINDING CAPACITY (UG/DL) IN SER/PLAS 364 250-450 ug/dL LAB 9208999 IRON SATURATION (%) IN SER/PLAS 15 Low 20-50 % LAB 9707258 IRON BINDING CAPACITY.UNSATU RATED (UG/DL) IN SER/PLAS 308.0 155.0-355.0 ug/dL Performed By: #### [id number] ## ## [facility] ([facility]) [address] [place] [address] TSH3 REFLEX TO FT4 Collected: 02/27/2024 12:[address] atus: UNK Source: [facility] REPOSITORY TYPE CODE TESTS RESULT OUT OF RANGE REFERENCE UNITS LAB 6366183 THYROTROPIN (MIU/L) IN SER/PLAS BY DETECTION LIMIT <= 0.05 MIU/L 2.02 0.34-5.60 mIU/L Performed By: #### [id number] # ### [facility] ([facility]) [address] [place] [address] FOLATE Collected: 12:18 PM Status: UNK Source: [facility] REPOSITORY TYPE CODE TESTS RESULT OUT OF RANGE REFERENCE UNITS LAB 6255070 FOLATE (NG/ML) IN SER/PLAS 39.0 6.6-1000 ng/mL Performed By: #### [id number] ### # [facility] ([facility]) [address] [place] [address] IGA Collected: 12:18 PM Status: UNK Source: [facility] REPOSITORY TYPE CODE TESTS RESULT OUT OF RANGE REFERENCE UNITS LAB 5955256 IGA (MG/DL) IN SER/PLAS 108 60-413 mg/dL Performed By: #### [id number] ### # [facility] (BEAKER) [address] [place] [address] [id number] Collected: 02/27/20 24 12:18 PM Status: UNK Source: [facility] REPOSITORY TYPE CODE TESTS RESULT OUT OF RANGE REFERENCE UNITS LAB [id number] ALPHA-1 ANTITRYPSIN 145 90-200 mg/dL Result Comment: To convert t o umol/L, multiply mg/dL by 0.185 Performed By: [facility] [address] [place] [address] Bait Painter: Sarwat Gorman MD, PhD CLIA Number: [id number] Performed By: #### [id number] ## ## [facility] ([facility]) [address] [place] [address] PROTIME-INR Collected: 4 12:18 PM Status: UNK Source: [facility] REPOSITORY TYPE CODE TESTS RESULT OUT OF RANGE REFERENCE UNITS LAB 4090461 PROTHROMBIN TIME (PT) IN PPP BY COAGULATION ASSAY 14.0 12.3-14.8 Seconds LAB 2376900 INR IN PPP BY COAGULATION ASSAY 1.08 0.90-1.10 NA Result Comment: [facility] RECOMM ENDED INR FOR WARFARIN THERAPY CONDITION INR PROPHYLAXIS OF VENOUS THROMBOSIS 2-3 (HIGH-RISK SURGERY) TREATMENT OF VENOUS THROMBOSIS 2-3 TREATMENT OF PULMONARY EMBOLISM 2-3 PREVENTION OF SYSTEMIC EMBOLISM: 2-3 ACUTE MYOCARDIAL INFARCTION TISSUE HEART VALVES VALVULAR HEART DISEASE ATRIAL FIBRILLATION RECURRENT SYSTEMIC EMBOLISM MECHANICAL HEART VALVE 2.5-3.5 FROM: ORAL ANTICOAGULANTS. MECHANISM OF ACTION, CLINICAL EFFECTIVENESS, AND OPTIMAL THERAPEUTIC RANGE. CHEST 1995;108:231S-246S. Performed By: #### [id number] ## ## [facility] ([place]) [address] [place] [address] COMPREHENSIVE METABOLIC PANEL Collected: 02/27/2024 1 2:18 PM Status: UNK Source: [facility] REPOSITORY TYPE CODE TESTS RESULT OUT OF RANGE REFERENCE UNITS LAB 7491348 SODIUM (MMOL/L) IN SER/PLAS 138 136-145 mmol/L LAB 7317870 POTASSIUM (MMOL/ L) IN SER/PLAS 4.2 3.5-5.1 mmol/L LAB 8927632 CHLORIDE (MMOL/L ) IN SER/PLAS 102 98-107 mmol/L LAB 5188742 CARBON DIOXIDE, TOTAL (MMOL/L) IN SER/PLAS 29 21-31 mmol/L LAB 4625823 ANION GAP IN SER/PLAS 11 7-20 mmol/L LAB 9353132 UREA NITROGEN (MG/DL) IN SER/PLAS 27 High 7-25 mg/dL LAB 8365492 CREATININE (MG/D L) IN SER/PLAS 0.62 0.60-1.20 mg/dL LAB 3989251 UREA NITROGEN/CREATININ E (MASS RATIO) IN SER/PLAS 43.5 NA LAB 7851649 GLUCOSE (MG/DL) IN SER/PLAS 90 70-100 mg/dL LAB 1841401 CALCIUM (MG/DL) IN SER/PLAS 9.9 8.6-10.3 mg/dL LAB 3550281 ASPARTATE AMINOTRANSFERASE (SGOT) (U/L) IN SER/PLAS 33 13-39 U/L LAB 5644113 ALANINE AMINOTRANSFERASE (SGPT) (U/L) IN SER/PLAS 43 7-52 U/L LAB 5487167 ALKALINE PHOSPHATASE (U/L) IN SER/PLAS 84 34-104 U/L LAB 4426139 PROTEIN (G/DL) I N SER/PLAS 6.9 6.0-8.3 g/dL LAB 3952617 ALBUMIN (G/DL) I N SER/PLAS 4.4 3.5-5.7 g/dL LAB 2288151 BILIRUBIN TOTAL (MG/DL) IN SER/PLAS 0.4 0.3-1.0 mg/dL LAB 8556971 GLOMERULAR FILTRATION RATE ML/MIN/1.73 SQ M.PREDICTED 102.5 >60.0 mL/min /1.73m *2 Result Comment: [facility]???s estimated glomerular filtration rate (eGFR) will [...] one group of individuals. Performed By: #### [id number] ### # [facility] ([facility]) [address] [place] [address] VITAMIN B12 Collected: 12:18 PM Status: UNK Source: [facility] REPOSITORY TYPE CODE TESTS RESULT OUT OF RANGE REFERENCE UNITS LAB 7838516 COBALAMIN (VITAMIN B12) (PG/ML) IN SER/PLAS 1862 High 180-914 pg/mL Result Comment: REFERENCE RA NGES: 180-914 pg/mL Normal 145-179 pg/mL Indeterminate <145 pg/mL Deficient Performed By: #### [id number] ### # [facility] ([facility]) [address] [place] [address] LAB Observed: 02/27/2024 12:15 PM Status: COMPLETED Source: [facility] REPOSITORY [id number] Jose Alberto Saleem 06/1965 F Date Provider Department Center 02/27/2024 224-[facility] MP LAB RESOURCE MP DRAW Medical Pavi Family History Problem Relation Age of Onset Hyperlipidemia Mother Hyperlipidemia Father Hyperlipidemia Brother Heart attack Brother Family Status - Relation Status Age at Mother Father BrotherBrother PROGRESS Observed: 02/27/2024 11:00 AM Status: COMPLETED Source: [facility] REPOSITORY Attestation signed by Danielle Cesar MD at 02/27/2024 2:30 PM I personally saw and examined the patient on the same date of service as resident/fellow . I discussed the findings and therapeutic plan with the resident/fellow . I agree with the documentation, except for any edits/updates below. [facility] Gastroenterology New Patient Visit - [...] pectoris (CMS/HCC) Atherosclerosis of coronary artery of [place] heart without angina pectoris Cellulitis of right [...] Mother Gretta Hyperlipidemia Father Munoz Hyperlipidemia Brother [place] Heart attack Brother Ray SOCIAL HISTORY: Social [...] ROS as below CONSTITUTIONAL: negative HEENT: negative RESPIRATORY: negative CARDIOVASCULAR: negative GASTROINTESTINAL: As in HPI GENITOURINARY: negative INTEGUMENT/BREAST: negative MUSCULOSKELETAL: negative NEUROLOGICAL: negative BEHAVIOR/PSYCH: negative PHYSICAL EXAM: Vitals: 02/27/24 1059 BP: 133/67 BP Location: Left arm Patient Position: Sitting BP Cuff Size: Small adult Pulse: 77 Weight: 75.8 kg (167 lb) Height: 1.6 m (5' 3 ) Body mass index is 29.58 kg/m???. CONSTITUTIONAL: awake, alert and no apparent distress EYES: pupils equal, round and reactive to light; conjunctiva pink and normal appearing ENT: oral pharynx with moist mucus membranes LUNGS: no increased work of breathing, good air exchange CARDIOVASCULAR: regular rate and no edema ABDOMEN: normal bowel sounds, soft, non-distended and non-tender SKIN: no bruising or bleeding, no rashes and no jaundice NEURO: alert, no focal deficits LABORATORY DATA: CBC: No results found for: WBC , RBC , HGB , HCT , MCV , RDW , PLT PT/INR No results found for: PT , INR BMP: No results found for: NA , K , CL , BUN , CREATININE , EGFR , GLU LFTs: No results found for: BILITOT , BILIDIR , ALKPHOS , GGT , AST , ALT , ALBUMIN , PROT B12/Folate/Iron studies: No results found for: [id number] , FOLATE , IRON , TIBC , UIBC , IRONSAT , FERRITIN Viral Hepatitis No results found for: HEPAIGM , HAV , HEPBSAG , HEPBSAB , HEPBEAB , HEPBIGM , HEPBCAB , HEPBCOREAB , HBVNAT , HCVSCR , HEPCAB , HCVNAT , HCVPCR , HCVTMA Liver Workup No results found for: CHAY , SMOOTHMUSCAB , CERULOPLSM , [id number] , TTGA , IGA , TSH , FREET4 , AFP Pancreatitis No results found for: AMYLASE , LIPASE , TRIG , CALCIUM ASSESSMENT AND PLAN: Jose Alberto was seen today for new patient and pancreatitis. Diagnoses and all orders for this visit: Acute recurrent pancreatitis (Primary) - unclear etiology - hx of cholecystectomy in 1989 - MRCP negative for CBD dilation, mild AST/ALT elevation - denies alcohol use - has hx of TGs 1800 that have been controlled after weight loss - will order EUS to assess for chronic pancreatitis, discussed with patient that exam will be limited given hx of romina-en- y - Endoscopic Ultrasound (Upper); Future Epigastric pain - possibly related to chronic pancreatitis, however she has not been formally diagnosed with this - need to rule out anastomotic ulcers - EGD Elevated LFTs - Denies hx of fatty liver disease, reports she was being worked up to be a donor for her - Tissue transglutaminase, IgA; Future - Hepatitis panel, acute; Future - Iron and TIBC; Future - IgG 1, 2, 3, and 4; Future - Liver fibrosis chronic viral hepatitis; Future - Mitochondrial antibodies, M2; Future - Protime-INR; Future - Anti-smooth muscle antibody titer; Future - CHAY; Future - Vsrdn-8-ueooglnkalw; Future - Ferritin; Future - Comprehensive metabolic panel; Future - IgA; Future - CBC and differential; Future - Lipid panel; Future - Hemoglobin A1c; Future History of Romina-en-Y gastric bypass - check for vitamin deficiencies - Vitamin B12; Future - Folate; Future - Copper, serum; Future - Vitamin D 25 hydroxy; Future Follow up after EGD/EUS OFFICE VISIT Observed: 02/27/2024 11:00 AM Status: COMPLETED Source: [facility] REPOSITORY [id number] Jose Alberto Saleem 06/1965 F Date Provider Department Center 02/27/2024 209-[facility] MP GI Medical [facility]avi Family History Problem Relation Age of Onset Hyperlipidemia Mother Hyperlipidemia Father Hyperlipidemia Brother Heart attack Brother Family Status - Relation Status Age at Mother Father Brother Brother Level of Service:15327 [place] OFFICE/OUTPATIENT NEW MODERATE MDM 45 MINUTES (GC) Reason for Visit and Comments: New Patient [632] Pancreatitis [246700] ORDERS ONLY Observed: 02/12/2024 12:00 AM Status: COMPLETED Source: [facility] REPOSITORY [id number] Jose Alberto Saleem 06/1965 F Date Provider Department Center 02/12/2024 [id number], HISTORICAL MP GI Medical Pavi No family history on file LAB REPORTS Observed: 01/19/2024 5:57 PM Status: F Source: [facility] REPOSITORY [id number]#1.00TIFF LAB REPORTS Observed: 01/19/2024 5:57 PM Status: F Source: [facility] REPOSITORY [id number]#1.00TIFF LAB REPORTS Observed: 01/19/2024 5:57 PM Status: F Source: [facility] REPOSITORY [id number]#1.00TIFF LAB REPORTS Observed: 01/19/2024 5:57 PM Status: F Source: [facility] REPOSITORY [id number]#1.00TIFF LAB REPORTS Observed: 01/19/2024 5:57 PM Status: F Source: [facility] REPOSITORY [id number]#1.00TIFF RAD - MISC Observed: 01/19/2024 5:57 PM Status: F Source: [facility] REPOSITORY [id number]#1.00TIFF ALLERGIES DATE TYPE / CODE NAME / CODE REACTION SEVERITY SOURCE 08/18/2024 Drug Allergy/41 8551267(SN OMED CT) Penicillins/[id number] 76(RXNORM) Anaphylaxis, ([place]) 08/08/2011 Unknown [facility] 08/18/2024 Drug Allergy/41 8373680(SN OMED CT) Sulfa (Sulfonamide Antibiotics)/[id number] 491(RXNORM) Unknown Reaction Unknown [facility] 08/18/2024 Drug Allergy/41 1419925(SN OMED CT) latex/[id number](RXN ORM) Anaphylaxis Unknown [facility] 08/18/2024 Drug Allergy/41 3315539(SN OMED CT) baclofen/[id number]( RXNORM) Difficulty Breathing Unknown [facility] 08/18/2024 Drug Allergy/41 8702391(SN OMED CT) sulfamethoxazole/F00 0524503(RXNORM) Hives, ([place]) 08/08/[address] [facility] 08/18/2024 Drug Allergy/41 2528848(SN OMED CT) trimethoprim/W595528 873(RXNORM) Hives, ([place]) 08/08/[address] [facility] 08/18/2024 Drug Allergy/41 4262245(SN OMED CT) fenofibrate/A1536371 89(RXNORM) ([place]) 08/08/[address] [facility] 08/18/2024 Drug Allergy/41 4885907(SN OMED CT) levofloxacin/Y926689 299(RXNORM) Swelling of Lip/Tongue/Throat, thrush Unknown [facility] 08/18/2024 Drug Allergy/41 7723378(SN OMED CT) rosuvastatin/R089356 902(RXNORM) Gastrointestinal Upset Unknown [facility] 08/09/2023 DRUG INGREDI/41 8251994(SN OMED CT) BACLOFEN Shortness of breath [facility] 08/09/2023 Drug Class/4195 25891(SNOM ED CT) PENICILLINS Rash [facility] 08/09/2023 Drug Class/4195 65867(SNOM ED CT) SULFA (SULFONAMIDE ANTIBIOTICS) Shortness of breath [facility] 08/09/2023 DRUG INGREDI/41 3145144(SN OMED CT) ROSUVASTATIN Other [facility] 08/09/2023 DRUG/96905 1003(SNOME D CT) SULFAMETHOXAZOLE-TRI METHOPRIM [facility] 08/09/2023 DRUG INGREDI~En viron/4195 81692(SNOM ED CT) LATEX Shortness of breath [facility] 11/01/2022 DRUG INGREDI/41 9740960(SN OMED CT) TRIMETHOPRIM [facility] 10/04/2022 DRUG INGREDI/41 2241548(SN OMED CT) TOBRAMYCIN Rash [facility] 10/04/2022 DRUG INGREDI/41 5040296(SN OMED CT) TOBRAMYCIN Rash [facility] 09/06/2017 DRUG INGREDI~En viron/4195 20622(SNOM ED CT) LATEX Anaphylaxis High [facility] 07/10/2017 DRUG INGREDI/41 3317922(SN OMED CT) LEVOFLOXACIN Other~Swelling [facility] 07/10/2017 DRUG INGREDI/41 3932767(SN OMED CT) BACLOFEN Other ( See Comments) [facility] 07/10/2017 DRUG INGREDI/41 4946849(SN OMED CT) LEVOFLOXACIN Other ( See Comments) [facility] 07/10/2017 DRUG INGREDI/41 9622316(SN OMED CT) ROSUVASTATIN Other ( See Comments) [facility] 03/22/2009 DRUG INGREDI/41 8375765(SN OMED CT) FENOFIBRATE (Inactive) GI intolerance [facility] 03/22/2009 DRUG/15753 1003(SNOME D CT) FENOFIBRATE MICRONIZED (Inactive) GI intolerance [facility] 03/22/2009 DRUG/92146 1003(SNOME D CT) FENOFIBRATE MICRONIZED [facility] 03/16/2006 Drug Class/4195 67952(SNOM ED CT) LATEX, NATURAL RUBBER Anaphylaxis~Sob High [facility] 03/14/2006 DRUG INGREDI/41 0914349(SN OMED CT) FLUVASTATIN Unknown [facility] 03/14/2006 DRUG INGREDI/41 9230327(SN OMED CT) PHENAZOPYRIDINE Nausea~NandV [facility] 03/14/2006 DRUG INGREDI/41 0494139(SN OMED CT) SIMVASTATIN Unknown [facility] 03/14/2006 Drug Class/4195 37669(SNOM ED CT) PENICILLINS [facility] 03/14/2006 DRUG INGREDI/41 1363860(SN OMED CT) PHENAZOPYRIDINE HCL Nausea and Vomiting [facility] 03/14/2006 Drug Class/4195 68492(SNOM ED CT) SULFA (SULFONAMIDE ANTIBIOTICS) [facility] /[id number] 06(SNOMED CT) Latex [id number] [facility] DR/[id number] 06(SNOMED CT) rosuvastatin [id number] [facility] [id number] 06(SNOMED CT) penicillins [id number] [facility] [id number] 06(SNOMED CT) sulfa drugs Hives [facility] [id number] 06(SNOMED CT) tobramycin [facility] [id number] 06(SNOMED CT) baclofen [facility] [id number] 06(SNOMED CT) Unknown [id number] [facility] /[id number] 06(SNOMED CT) Levaquin [id number] [facility] ENCOUNTERS ADMIT/DISCHARGE ACCOUNT NUMBER ADMITTING ENCOUNTER CLASS LOCATION SOURCE 12/31/2024/01/01/20 [id number] Ambulatory Buildin [id number] [facility] 12/12/2024/12/13/19 [id number] Ambulatory Building:[facility] 11/26/2024/11/26/19 [id number] Ambulatory Building:[facility] EPIC 11/26/2024/11/26/19 [id number] Ambulatory Building:[facility] [place] 10/11/2024/10/11/19 [id number] Ambulatory Building:[facility] 09/05/2024/09/05/20 24 [id number] Ambulatory Building:[address] 08/20/2024/08/22/20 24 [id number] Donis Arroyo [facility]: [id number] 08/13/2024/08/13/20 24 [id number] Ambulatory Building:[address] 08/05/2024/08/05/20 24 [id number] Ambulatory EU [place] ding:[facility] [place] : Exam 3 [facility] 04/10/2024/04/10/20 24 [id number] Ambulatory EU [place] ding:[facility] : Exam 1 [facility] 03/11/2024/06/11 24 [id number] Ambulatory EU [place] ding:EU Adelfo [facility] 03/07/2024/03/07/20 24 [id number] Inpatient Encounter Building:[facility] _[facility] 03/07/2024/03/07/20 24 [id number] Inpatient Encounter Building:[facility] _ENDO [facility] 03/06/2024/03/07/20 24 [id number] Inpatient Encounter Building:PTH _INTRAOP [facility] 03/06/2024/03/07/20 24 [id number] Inpatient Encounter Building:PTH _INTRAOP [facility] 03/06/2024/03/06/20 24 [id number] DANIELLE CESAR Inpatient Encounter Building:PTH _PERIOPRoom: POOL 1Bed: NONE [facility] 02/29/2024/02/29/20 24 [id number] [facility] En[facility] 02/27/2024 [id number] Ambulatory Building:MP DRAW [facility] 02/27/2024/02/27/20 24 [id number] Ambulatory Buildin 0 [facility] 01/17/2024/01/17/20 24 [id number] Ambulatory Buildin 29 [facility] Ambulatory [facility] 04/14/2019 [id number] Ambulatory CD:[id number] 3Building:CD :[id number] [facility] PAYERS ENCOUNTER GUARANTOR PAYER SUBSCRIBER SOURCE 12/31/2024 [facility] [id number] ve Date:2022-10-01 JOSE ALBERTO VIVAS: [id number] [place] [address] [facility] 12/12/2024 Primary Insurance:LALITA ASTUDILLO PUERTO RICOPolicy Number: [id number] ve Date:2022-10-01 JOSE ALBERTO VIVAS: [id number] [place] [address] [facility] 11/26/2024 JOSE ALBERTO Vann CAITLYNGSDOB: [place] [address]Imt: (HP) Primary Insurance:BCBSPolic y Number: [id number] ve Date:2022-10-01 JOSE ALBERTO Vann ACITLYNGSDOB: [id number] [place] [address] [facility] 11/26/2024 JOSE ALBERTO Vann CAITLYNGSDOB: [place] [address]Vib: (HP) Primary Insurance:BCBSPolic y Number: [id number] ve Date:2022-10-01 JOSE ALBERTO Vann STIVENDOB: [id number] [place] [address] [facility] 10/11/2024 JOSE ALBERTO QUINTANILLAB: [place], [place] [address]Yxl: (HP) Primary Insurance:BLUE ACCESS (PPO)Policy Number: [id number] ve Date:2022-10-01 JOSE ALBERTO SERENITY SOCORROB: [id number] [place], [place] [address]Yxk: (HP) () [facility] 09/05/2024 JOSE ALBERTO QUINTANILLAB: [place] [address]Ibf: (HP) Primary Insurance:ANTHEMPol icy Number: [id number] ve Date:2022-10-01 JOSE ALBERTO QUINTANILLAB: [id number] [place], [place] [address]Ilg: (HP) [facility] 08/20/2024 Jose Alberto C gs[address] [place] [address]Hjt: (HP) Primary Insurance:[place] BC/BSPolicy Number: [id number] ve Date:2024-08-18 Jose Alberto Vann StivenDOB: [id number] [place] [facility] [place] [address]Tyv: (HP) [facility] 08/20/2024 Secondary Insurance:Self PayPolicy Number: Effective Date:2024-08-18 [facility] JOSE ALBERTO STIVENDOB: [facility] [place] [address]Smf: (HP) Primary Insurance:ANTHEMPol icy Number: [id number] ve Date:2022-10-01 JOSE ALBERTO STIVENDOB: [id number] [facility], [place] [address]Dfv: (HP) [facility] 08/05/2024 JOSE ALBERTOTRESA QUINTANILLAB: RE CTTel: [phone]~~[phone] (HP) Primary Insurance:AnthemPol icy Number: [id number] ve Date:[id number] [address] [place] [address]KD: JOSE ALBERTO C [facility] 04/10/2024 JOSE ALBERTO SALEEMDOB: RE CTTel: [id number]~~[phone] (HP) Primary Insurance:AnthemPol icy Number: [id number] ve Date:[id number], [place] [address]XP: JOSE ALBERTO [facility] 03/11/2024 JOSE ALBERTO SALEEMDOB: RE CTTel: [id number]~~[phone] (HP) Primary Insurance:AnthemPol icy Number: [id number] Date:6823-12-31AT [facility] [place] [address]CY: JOSE ALBERTO DU [facility] 03/07/2024 JOSE ALBERTO SERENITY VIVAS: [place] [address]Lyl: (HP) Primary Insurance:BLUE ACCESS (PPO)Policy Number: [id number] ve Date:2022-10-01 JOSE ALBERTOTRESA VIVAS: [id number] [place], [place] [address]Bhm: (HP) (WP) [facility] 03/07/2024 JOSE ALBERTOTRESA VIVAS: [place] [address]Zri: (HP) Primary Insurance:BLUE ACCESS (PPO)Policy Number: [id number] ve Date:2022-10-01 JOSE ALBERTO VIVAS: [id number] [place], [place] [address]Zaj: (HP) (WP) [facility] 03/06/2024 JOSE ALBERTOTRESA VIVAS: [place] [address]Eqj: (HP) Primary Insurance:BLUE ACCESS (PPO)Policy Number: [id number] ve Date:2022-10-01 JOSE ALBERTO VIVAS: [id number] [place], [place] [address]Tkb: (HP) (WP) [facility] 03/06/2024 JOSE ALBERTOTRESA VIVAS: [place] [address]Kje: (HP) Primary Insurance:BLUE ACCESS (PPO)Policy Number: [id number] ve Date:2022-10-01 JOSE ALBERTO VIVAS: [id number] [place], [place] [address]Spt: (HP) (WP) [facility] 03/06/2024 JOSE ALBERTO VIVAS: [place] [address]Qsv: (HP) Primary Insurance:BLUE ACCESS (PPO)Policy Number: [id number] ve Date:2022-10-01 JOSE ALBERTO QUINTANILLAB: [id number] [place] [address]Our: (HP) (WP) [facility] 02/29/2024 JOSE ALBERTO QUINTANILLAB: [place] [address]Yux: (HP) Primary Insurance:BLUE ACCESS (PPO)Policy Number: [id number] ve Date:2022-10-01 JOSE ALBERTO QUINTANILLAB: [id number] [place] [address]Php: (HP) (WP) [facility] 02/27/2024 Primary Insurance[facility]ALITA [facility]: [id number] ve Date:2022-10-01 JOSE ALBERTO VIVAS: [id number] [place] [address] [facility] 02/27/2024 [facility]: [id number] ve Date:2022-10-01 JOSE ALBERTO VIVAS: [id number] [place] [address] [facility] 01/17/2024 JOSE ALBERTO QUINTANILLAB: [place] [address]Dmf: (HP) Primary Insurance:BLUE ACCESS (PPO)Policy Number: [id number] ve Date:2022-10-01 JOSE ALBERTO VIVAS: [id number] [place], [place] [address]Mqy: () () [facility] 04/14/2019 JOSE ALBERTO VIVAS: RE CTTel: () Primary Insurance:AnthemPol icy Number: [id number] ve Date:4110-40-24QT [place]ASHA [address], [place] [address]OZ: JOSE ALBERTO DU [facility]
[2025-01-02 07:12] LABS: Basophils Percent Auto 0.4 % (0.2-2.0); Eosinophils Absolute Auto 0.2 10^3/uL (0.0-0.7); Eosinophils Percent Auto 4.8 % (0.9-7.0); Hematocrit 45.4 % (36.0-48.0); Hemoglobin 15.1 g/dL (12.0-16.0); Immature Granulocytes Abs Auto 0.01 10^3/uL (0.00-0.03); Immature Granulocytes Pct Auto 0.2 % (0.0-0.5); Lymphocytes Absolute Auto 1.5 10^3/uL (1.2-3.8); Lymphocytes Percent Auto 29.8 % (20.5-60.0); Mean Corpuscular HGB Conc 33.3 g/dL (29.9-35.2); Mean Corpuscular Hemoglobin 30.6 pg (26.7-34.0); Mean Corpuscular Volume 91.9 fL (81.0-99.0); Mean Platelet Volume 8.8 fL (9.5-13.5); Monocytes Absolute Auto 0.5 10^3/uL (0.3-0.8); Monocytes Percent Auto 10.5 % (1.7-12.0); Neutrophils Absolute Auto 2.7 10^3/uL (1.4-6.5); Neutrophils Percent Auto 54.3 % (43.0-75.0); Platelet Count 190 10^3/uL (150-450); Red Blood Count 4.94 10^6/uL (4.20-5.40); Red Cell Distribution Width 12.5 % (11.0-15.0)
[2025-01-02 07:50] LABS: Alanine Aminotransferase 40 U/L (14-59); Albumin Globulin Ratio 1.2; Albumin Level 3.7 g/dL (3.4-5.0); Alkaline Phosphatase 107 U/L (46-116); Anion Gap 9.3; Aspartate Amino Transferase 27 U/L (15-37); BUN Creatinine Ratio 27.6; Bilirubin Total 0.3 mg/dL (0.2-1.0); Chloride 106 mmol/L (98-107); Estimated GFR (African America >60 (>=60 mL/min/1.73m^2); Estimated GFR (Non-African Ame >60 (>=60 mL/min/1.73m^2); Globulin 3.2 g/dL; Glucose 94 mg/dL (74-106); Potassium 4.3 mmol/L (3.5-5.1); Sodium 144 mmol/L (136-145); Total Protein 6.9 g/dL (6.4-8.2)
[2025-01-02 07:54] LABS: Calcium 9.7 mg/dL (8.5-10.1)
[2025-01-02 09:30] LABS: Amylase 306 U/L (25-115)
== END 2025-01-02 06:34 | disposition home or self-care (01) ==
PROVIDERS: PCP Family Medicine; Visit Provider Family Medicine
DX: K85.90 Acute pancreatitis without necrosis or infection, unspecified (principal)
CPT/HCPCS: 36415; 80053; 82150; 83690; 85025

== ENCOUNTER 2025-01-02 13:40 | Inpatient (IN) | payer BC, SELFPAY ==
[2025-01-02 13:43] VITALS: BP 143/83; PULSE 85; TEMP 36.4; O2SAT 98; BMI 31.2
--- NOTE | 2025-01-02 14:46 | ED.ABDPAIN1 ---
HPI - Abdominal Pain General Chief Complaint: Abdominal Pain Stated Complaint: ELEVATED LABS - SEB PATIENT Time Seen by Provider: 01/02/25 14:39 Source: patient Mode of arrival: walk-in Limitations: no limitations History of Present Illness HPI narrative: Patient is a 59-year-old female who is presenting to the ER with abnormal outpatient labs. Patient had outpatient labs this morning that showed elevated lipase. Patient has had gastric bypass done approximately 6 years ago. Patient has had pancreatitis several times in the past. Patient had a MRCP done this week and was told there is no acute findings. Patient does have a pancreas specialist in [place] that she is already seen. Patient has an outpatient appointment with the pancreas specialist next Sunday. Patient PCP is Dr. Dejesus. Patient's been feeling lightheaded, fatigued, weak and upper abdominal discomfort for the past several days. Patient had her outpatient lab work done this morning, patient was sitting at the computer working and fell asleep for most of the morning. No headache. No strokelike signs or symptoms. No chest pain. No nausea or vomiting. Patient states she had pancreatitis secondary to obesity and triglycerides. She is not a diabetic. Patient has had a four-vessel CABG, patient has 6-7 stents. Significant family history of cardiac disease. She is not having any chest pain or shortness of breath at this time. Patient looks well, slightly fatigued. Does not look toxic. All systems are negative except as noted/marked. All systems reviewed and otherwise negative. Nurses note and vital signs reviewed and patient is not hypoxic. General: The patient appears well and in no apparent distress. Patient is resting comfortably on cart. Patient is not toxic, lethargic, or listless Skin: Warm, dry, no pallor noted. There is no rash noted. No petechiae, purpura. Head: Normocephalic, atraumatic Eye: Normal conjunctiva, no drainage, EOMI. PERRL Ears, Nose, Mouth, and Throat: oral mucosa is moist. Nares patent. Mouth without vesicles. Cardiovascular: Regular Rate and Rhythm, no murmur, gallop, rub Respiratory: Patient is in no distress, no accessory muscle use, lungs are clear to auscultation, no wheezing, rales or rhonchi Back: non-tender, no CVA tenderness bilaterally to percussion. No CT LS midline pain GI: Soft, moderate midepigastric tenderness to palpation, mild left upper quadrant tenderness to palpation, no right upper quadrant tenderness to palpation. No flank pain bilateral. Abdomen is not distended or bloated. No tenderness to palpation, no masses appreciated. No rebound, guarding, or rigidity noted. No distention Musculoskeletal: Patient has full range of motion of all of the extremities, no motor, sensory, or focal neurological deficits Neurological: A&O x4, normal speech Psychiatric: Cooperative Related Data Home Medications ?Medication ?Instructions ?Recorded ?Confirmed aspirin 81 mg tablet,delayed 81 mg PO DAILY 01/25/24 01/02/25 release cevimeline 30 mg capsule 30 mg PO TID 01/25/24 01/02/25 citalopram 40 mg tablet 40 mg PO DAILY 01/25/24 01/02/25 fluticasone propionate 50 1 spray intranasal BID 01/25/24 01/02/25 mcg/actuation nasal spray,suspension rabeprazole 20 mg tablet,delayed 20 mg PO BID 01/25/24 01/02/25 release tamsulosin 0.4 mg capsule 0.4 mg PO DAILY 01/25/24 01/02/25 amlodipine 2.5 mg tablet 2.5 mg PO DAILY 09/30/24 01/02/25 clopidogrel 75 mg tablet 75 mg PO DAILY 09/30/24 01/02/25 estradiol 0.01% (0.1 mg/gram) 0.25 appful vaginal .every other 09/30/24 01/02/25 vaginal cream day mirabegron 50 mg tablet,extended 50 mg PO .qhs 09/30/24 01/02/25 release 24 hr nitroglycerin 0.4 mg sublingual 0.4 mg sublingual Q5M PRN chest 09/30/24 01/02/25 tablet pain atorvastatin 20 mg tablet 20 mg PO DAILY 10/01/24 01/02/25 vit C 250 mg-vit E 90 mg-zinc 40 1 tab PO BID 10/01/24 01/02/25 mg-copper 1 jq-wwafux-iqlosn capsule (PreserVision AREDS-2) Saccharomyces boulardii 1 cap PO .QD 01/02/25 01/02/25 hyoscyamine sulfate 0.125 mg tablet 0.125 mg PO Q12H PRN abdominal pain 01/02/25 01/02/25 tgugvz-oegtyhht-lkqnyvp 1 cap PO ACHS 01/02/25 01/02/25 24,000-76,000-120,000 unit capsule,delayed rel (Creon) Allergies Allergy/AdvReac Type Severity Reaction Status Date / Time latex Allergy Severe Anaphylaxis Verified 01/25/24 16:00 Penicillins Allergy Intermediate Hives Verified 01/25/24 16:00 Sulfa (Sulfonamide Allergy Intermediate Verified 01/25/24 16:00 Antibiotics) adhesive tape AdvReac Verified 01/25/24 16:00 [facility] Medical History (Updated 01/02/25 @ 19:57 by Kael Cardoso MD) Pancreatitis ?K85.90 - Acute pancreatitis without necrosis or infection, unspecified (ICD-10) Abdominal pain ?R10.9 - Unspecified abdominal pain (ICD-10) Acute pancreatitis ?K85.90 - Acute pancreatitis without necrosis or infection, unspecified (ICD-10) Acute abdomen ?R10.0 - Acute abdomen (ICD-10) Depression ?F32.A - Depression, unspecified (ICD-10) Cataract ?H26.9 - Unspecified cataract (ICD-10) Hyperlipidemia ?E78.5 - Hyperlipidemia, unspecified (ICD-10) History of prediabetes ?Z87.898 - Personal history of other specified conditions (ICD-10) Hypertension ?I10 - Essential (primary) hypertension (ICD-10) Surgical History H/O rhinoplasty ?Z98.890 - Other specified postprocedural states (ICD-10) History of carpal tunnel release of both wrists ?Z98.890 - Other specified postprocedural states (ICD-10) H/O gastric bypass ?Z98.84 - Bariatric surgery status (ICD-10) H/O heart artery stent ?Z95.5 - Presence of coronary angioplasty implant and graft (ICD-10) History of quadruple bypass ?Z95.1 - Presence of aortocoronary bypass graft (ICD-10) Hx of appendectomy ?Z90.49 - Acquired absence of other specified parts of digestive tract (ICD-10) H/O hernia repair ?Z98.890 - Other specified postprocedural states (ICD-10) ?Z87.19 - Personal history of other diseases of the digestive system (ICD-10) Hx of cholecystectomy ?Z90.49 - Acquired absence of other specified parts of digestive tract (ICD-10) Family History (Updated 01/25/24 @ 15:51 by Tamanna Stoll) Mother Family history of CHF (congestive heart failure) Family history of hypertension Father Family history of CHF (congestive heart failure) Family history of COPD (chronic obstructive pulmonary disease) Brother Family history of CHF (congestive heart failure) Family history of stroke Family history of myocardial infarction Family history of hypertension Grandmother Family history of cancer Sister Family history of hypertension Social History (Updated 02/04/24 @ 20:01 by Carrie Guzman) Within the past year, how often did you have a drink containing alcohol: never Score interpretation: A score less than 3 is consistent with normal alcohol consumption. 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 Highest level of school completed/degree received: Bachelor's degree Are you now , , , , never or living with a partner: In a typical week, how many times do you talk on the telephone with family, friends, or neighbors: 3 or more times per week How often do you get together with friends or relatives: 3 or more times per week How often do you attend nondenominational or jehovah's witness services: 1-3 times per year Little interest or pleasure in doing things: not at all Feeling down, depressed, or hopeless: not at all Feel stressed/tense/nervous/anxious/difficulty sleeping: to some extent Do you think of yourself as: straight/heterosexual Gender Identity: female Exam Constitutional Vital Signs, click to edit/add: Last Vital Signs Temp 97.7 F 01/02/25 17:04 Pulse 68 01/02/25 17:04 Resp 16 01/02/25 17:04 BP 158/80 H 01/02/25 17:04 Pulse Ox 97 01/02/25 17:04 O2 Del Method Room Air 01/02/25 17:04 Course Vital Signs Vital signs: Vital Signs Temperature 97.6 F 01/02/25 13:43 Pulse Rate 85 01/02/25 13:43 Respiratory Rate 18 01/02/25 13:43 Blood Pressure 143/83 H 01/02/25 13:43 Pulse Oximetry 98 01/02/25 13:43 Oxygen Delivery Method Room Air 01/02/25 13:43 Temperature 97.7 F 01/02/25 17:04 Pulse Rate 68 01/02/25 17:04 Respiratory Rate 16 01/02/25 17:04 Blood Pressure 158/80 H 01/02/25 17:04 Pulse Oximetry 97 01/02/25 17:04 Oxygen Delivery Method Room Air 01/02/25 17:04 MDM - Abdominal Pain MDM Narrative Medical decision making narrative: Patient seen and examined: Patient will have IV established, 1 L of IV fluid, a dose of morphine, Zofran and Pepcid for pain. Patient will repeat labs and sounds like patient may be admitted to the hospital for observation for pancreatitis. Patient's PCP office had sent patient to the ER with the understanding she most likely will get admitted to the hospital overnight. Differential diagnosis includes but is not limited to: Pancreatitis, Choleductal lithiasis, aortic aneurysm, electrolyte abnormality, GI upset, gastritis Diagnostics and management: Patient will have laboratory studies Relevant laboratory interpretation: Patient's lipase went from 270 to the 500s. CBC shows no elevation of white blood cell count patient BUN is 28,, lipase repeat is 569. Radiological studies: Please see the formal radiological report. Reevaluation: Patient was given IV fluids. Patient feels better after medication given. Patient was seen and evaluated by Dr. Dejesus in the ER Shared decision making: I discussed with the patient the necessary laboratory findings and radiological findings. Social barriers to healthcare: There are no food insecurities, there is no issue with transportation, there are no insurance barriers. Disposition: I discussed with the patient patient will be admitted for observation for pancreatitis, Dr. Alvaraod came to see and evaluate the patient in the ER Lab Data Labs: Lab Results 01/02/25 01/02/25 Range/Units 15:11 15:15 WBC 6.5 (4.0-11.0) 10^3/uL RBC 4.93 (4.20-5.40) 10^6/uL Hgb 15.1 (12.0-16.0) g/dL Hct 44.5 (36.0-48.0) % MCV 90.3 (81.0-99.0) fL MCH 30.6 (26.7-34.0) pg MCHC 33.9 (29.9-35.2) g/dL RDW 12.5 (11.0-15.0) % Plt Count 214 (150-450) 10^3/uL MPV 9.3 L (9.5-13.5) fL Neut % (Auto) 51.9 (43.0-75.0) % Lymph % (Auto) 32.8 (20.5-60.0) % Dup[place] % (Auto) 10.9 (1.7-12.0) % Eos % (Auto) 3.7 (0.9-7.0) % Baso % (Auto) 0.5 (0.2-2.0) % Neut # (Auto) 3.4 (1.4-6.5) 10^3/uL Lymph # (Auto) 2.1 (1.2-3.8) 10^3/uL [place] # (Auto) 0.7 (0.3-0.8) 10^3/uL Eos # (Auto) 0.2 (0.0-0.7) 10^3/uL Baso # (Auto) 0.0 (0.0-0.1) 10^3/uL Abs Immat Gran (auto) 0.01 (0.00-0.03) 10^3/uL Imm/Tot Granulo (auto) 0.2 (0.0-0.5) % Sodium 141 (136-145) mmol/L Potassium 4.3 (3.5-5.1) mmol/L Chloride 103 (98-107) mmol/L Carbon Dioxide 29.3 (21.0-32.0) mmol/L Anion Gap 13.0 BUN 28.0 H (7.0-18.0) mg/dL Creatinine 0.66 (0.55-1.02) mg/dL Est GFR ( Amer) >60 (>=60 mL/min/1.73m^2) Est GFR (Non-Af Amer) >60 (>=60 mL/min/1.73m^2) BUN/Creatinine Ratio 42.4 Glucose 75 (74-106) mg/dL Lactate 0.9 (0.4-2.0) mmol/L Calcium 9.5 (8.5-10.1) mg/dL Total Bilirubin 0.2 (0.2-1.0) mg/dL AST 30 (15-37) U/L ALT 41 (14-59) U/L Alkaline Phosphatase 114 (46-116) U/L Troponin I High Sens 6.1 (4.0-51.3) pg/mL Total Protein 7.0 (6.4-8.2) g/dL Albumin 3.6 (3.4-5.0) g/dL Globulin 3.4 g/dL Albumin/Globulin Ratio 1.1 Lipase 569.0 H (16.0-77.0) U/L Urine Color Lt. yellow (YELLOW) Urine Clarity Clear (CLEAR) Urine pH 7.5 (5.0-9.0) Ur Specific [place] 1.010 (1.005-1.025) Urine Protein Negative (NEG/TRACE) mg/dL Urine Glucose (UA) Negative (NEGATIVE) mg/dL Urine Ketones Negative (NEGATIVE) mg/dL Urine Occult Blood Negative (NEGATIVE) Urine Nitrite Negative (NEGATIVE) Urine Bilirubin Negative (NEGATIVE) Urine Urobilinogen 0.2 (0.2-1.0) EU/dL Ur Leukocyte Esterase Small A (NEGATIVE) Urine RBC None seen (0-2) #/HPF Urine WBC 0-2 A (NONE SEEN) #/HPF Ur Squamous Epith Cells Moderate A (NONE/RARE) #/LPF Urine Crystals None seen (None Seen) #/HPF Urine Bacteria Trace A (NONE SEEN) #/HPF Urine Casts None seen (NONE SEEN) #/LPF Urine Mucus Trace A (NONE SEEN) Discharge Plan Discharge Chief Complaint: Abdominal Pain Clinical Impression: Pancreatitis Patient Disposition: Admitted As Inpatient Time of Disposition Decision: 16:00 Discharge Date/Time: 01/02/25 16:49
[2025-01-02] MEDS: 0.9 % SODIUM CHLORIDE 1,000 ML 999 ML IV (15:23)
[2025-01-02] MEDS: PANTOPRAZOLE SODIUM 40 MG VIAL IV ×2 (15:23→19:51)
[2025-01-02 15:32] LABS: Basophils Percent Auto 0.5 % (0.2-2.0); Eosinophils Absolute Auto 0.2 10^3/uL (0.0-0.7); Eosinophils Percent Auto 3.7 % (0.9-7.0); Hematocrit 44.5 % (36.0-48.0); Hemoglobin 15.1 g/dL (12.0-16.0); Immature Granulocytes Abs Auto 0.01 10^3/uL (0.00-0.03); Immature Granulocytes Pct Auto 0.2 % (0.0-0.5); Lymphocytes Absolute Auto 2.1 10^3/uL (1.2-3.8); Lymphocytes Percent Auto 32.8 % (20.5-60.0); Mean Corpuscular HGB Conc 33.9 g/dL (29.9-35.2); Mean Corpuscular Hemoglobin 30.6 pg (26.7-34.0); Mean Corpuscular Volume 90.3 fL (81.0-99.0); Mean Platelet Volume 9.3 fL (9.5-13.5); Monocytes Absolute Auto 0.7 10^3/uL (0.3-0.8); Monocytes Percent Auto 10.9 % (1.7-12.0); Neutrophils Absolute Auto 3.4 10^3/uL (1.4-6.5); Neutrophils Percent Auto 51.9 % (43.0-75.0); Platelet Count 214 10^3/uL (150-450); Red Blood Count 4.93 10^6/uL (4.20-5.40); Red Cell Distribution Width 12.5 % (11.0-15.0); White Blood Count 6.5 10^3/uL (4.0-11.0)
[2025-01-02 15:33] LABS: Bilirubin Urine NEGATIVE (NEGATIVE); Blood Urine NEGATIVE (NEGATIVE); Clarity Urine CLEAR (CLEAR); Color Urine LT. YELLOW (YELLOW); Glucose Urine UA NEGATIVE (NEGATIVE); Ketones Urine NEGATIVE (NEGATIVE); Leukocyte Esterase Urine SMALL (NEGATIVE); Nitrite Urine NEGATIVE (NEGATIVE); Protein Urine NEGATIVE (NEG/TRACE); Urobilinogen Urine 0.2 EU/dL (0.2-1.0); pH Urine 7.5 (5.0-9.0)
[2025-01-02 15:43] LABS: Bacteria Urine TRACE #/HPF (NONE SEEN); Cast Seen? NONE SEEN #/LPF (NONE SEEN); Crystals Seen? None Seen #/HPF (None Seen); Mucus Urine TRACE (NONE SEEN); RBC Urine NONE SEEN #/HPF (0-2); Squamous Epithelial Cell Urine MODERATE #/LPF (NONE/RARE); WBC Urine 0-2 #/HPF (NONE SEEN)
[2025-01-02 15:48] LABS: Lactate/Lactic Acid 0.9 mmol/L (0.4-2.0)
[2025-01-02 15:57] LABS: Alanine Aminotransferase 41 U/L (14-59); Albumin Globulin Ratio 1.1; Albumin Level 3.6 g/dL (3.4-5.0); Alkaline Phosphatase 114 U/L (46-116); Aspartate Amino Transferase 30 U/L (15-37); BUN Creatinine Ratio 42.4; Bilirubin Total 0.2 mg/dL (0.2-1.0); Calcium 9.5 mg/dL (8.5-10.1); Carbon Dioxide 29.3 mmol/L (21.0-32.0); Chloride 103 mmol/L (98-107); Estimated GFR (African America >60 (>=60 mL/min/1.73m^2); Estimated GFR (Non-African Ame >60 (>=60 mL/min/1.73m^2); Globulin 3.4 g/dL; Glucose 75 mg/dL (74-106); Potassium 4.3 mmol/L (3.5-5.1); Sodium 141 mmol/L (136-145); Troponin I High Sensitivity 6.1 pg/mL (4.0-51.3)
[2025-01-02] MEDS: MORPHINE SULFATE 4 MG/ML VIAL IV (16:04)
[2025-01-02 16:27] VITALS: BP 148/73; PULSE 63; TEMP 36.6; O2SAT 100
[2025-01-02 17:04] VITALS: BP 158/80; PULSE 68; TEMP 36.5; O2SAT 97; BMI 30.8
--- NOTE | 2025-01-02 17:17 | P.HP_ITS ---
HPI H&P: HPI History of Present Illness Chief complaint: ELEVATED LABS - HOY PATIENT, PANCREAITIS Narrative: Patient with chronic pancreatitis had increasing abdominal pain and completed a standing order for amylase and lipase and those were significantly elevated, with both being elevated, patient feeling worse with increasing abdominal pain and feverish, had a present to the emergency room for evaluation and likely admission, lipase is actually higher now than it was earlier with almost 600, patient will be admitted for workup and treatment of same Opioid HPI Opioid Management Most Recent Pain and Opioid Data: Last Pain Scale 7 01/02/25 16:04 01/02/25 Last MAR Pain Assessment 01/02/25 16:04 Last ORT Total Score 0 09/30/24 19:46 09/30/24 Last ORT Risk Category Low Risk 09/30/24 19:46 09/30/24 Review of Systems ROS Status of ROS 10 or more systems reviewed and unremark able except as noted in history and below [facility] Medical History (Updated 10/03/24 @ 00:00 by ) Pancreatitis ?K85.90 - Acute pancreatitis without necrosis or infection, unspecified (ICD- 10) Abdominal pain ?R10.9 - Unspecified abdominal pain (ICD-10) Acute pancreatitis ?K85.90 - Acute pancreatitis without necrosis or infection, unspecified (ICD- 10) Acute abdomen ?R10.0 - Acute abdomen (ICD-10) Depression ?F32.A - Depression, unspecified (ICD-10) Cataract ?H26.9 - Unspecified cataract (ICD-10) Hyperlipidemia ?E78.5 - Hyperlipidemia, unspecified (ICD-10) History of prediabetes ?Z87.898 - Personal history of other specified conditions (ICD-10) Hypertension ?I10 - Essential (primary) hypertension (ICD-10) Surgical History H/O rhinoplasty ?Z98.890 - Other specified postprocedural states (ICD-10) History of carpal tunnel release of both wrists ?Z98.890 - Other specified postprocedural states (ICD-10) H/O gastric bypass ?Z98.84 - Bariatric surgery status (ICD-10) H/O heart artery stent ?Z95.5 - Presence of coronary angioplasty implant and graft (ICD-10) History of quadruple bypass ?Z95.1 - Presence of aortocoronary bypass graft (ICD-10) Hx of appendectomy ?Z90.49 - Acquired absence of other specified parts of digestive tract (ICD- 10) H/O hernia repair ?Z98.890 - Other specified postprocedural states (ICD-10) ?Z87.19 - Personal history of other diseases of the digestive system (ICD-10) Hx of cholecystectomy ?Z90.49 - Acquired absence of other specified parts of digestive tract (ICD- 10) Family History (Updated 01/25/24 @ 15:51 by Tamanna Stoll) Mother Family history of CHF (congestive heart failure) Family history of hypertension Father Family history of CHF (congestive heart failure) Family history of COPD (chronic obstructive pulmonary disease) Brother Family history of CHF (congestive heart failure) Family history of stroke Family history of myocardial infarction Family history of hypertension Grandmother Family history of cancer Sister Family history of hypertension Social History (Updated 02/04/24 @ 20:01 by Carrie Guzman) Within the past year, how often did you have a drink containing alcohol: never Score interpretation: A score less than 3 is consistent with normal alcohol consumption. 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 Highest level of school completed/degree received: Bachelor's degree Are you now , , , , never or living with a partner: In a typical week, how many times do you talk on the telephone with family, friends, or neighbors: 3 or more times per week How often do you get together with friends or relatives: 3 or more times per week How often do you attend anabaptism or jewish services: 1-3 times per year Little interest or pleasure in doing things: not at all Feeling down, depressed, or hopeless: not at all Feel stressed/tense/nervous/anxious/difficulty sleeping: to some extent Do you think of yourself as: straight/heterosexual Gender Identity: female Meds Home Medications and Allergies Home Medications ?Medication ?Instructions ?Recorded ?Confirmed ?Type aspirin 81 mg tablet,delayed 81 mg PO DAILY 01/25/24 01/02/25 History release cevimeline 30 mg capsule 30 mg PO TID 01/25/24 01/02/25 History citalopram 40 mg tablet 40 mg PO DAILY 01/25/24 01/02/25 History fluticasone propionate 50 1 spray intranasal BID 01/25/24 01/02/25 History mcg/actuation nasal spray,suspension rabeprazole 20 mg tablet,delayed 20 mg PO BID 01/25/24 01/02/25 History release tamsulosin 0.4 mg capsule 0.4 mg PO DAILY 01/25/24 01/02/25 History amlodipine 2.5 mg tablet 2.5 mg PO DAILY 09/30/24 01/02/25 History clopidogrel 75 mg tablet 75 mg PO DAILY 09/30/24 01/02/25 History estradiol 0.01% (0.1 mg/gram) 0.25 appful vaginal .every other 09/30/24 01/02/25 History vaginal cream day mirabegron 50 mg tablet,extended 50 mg PO .qhs 09/30/24 01/02/25 History release 24 hr nitroglycerin 0.4 mg sublingual 0.4 mg sublingual Q5M PRN chest 09/30/24 01/02/25 History tablet pain nystatin 100,000 unit/gram topical 1 applic topical BID PRN rash 09/30/24 01/02/25 History powder (Nystop) atorvastatin 20 mg tablet 20 mg PO DAILY 10/01/24 01/02/25 History vit C 250 mg-vit E 90 mg-zinc 40 1 tab PO BID 10/01/24 01/02/25 History mg-copper 1 [id number]-[id number]-[id number] capsule (PreserVision AREDS-2) Saccharomyces boulardii PO 01/02/25 History hyoscyamine sulfate 0.125 mg tablet 0.125 mg PO Q12H PRN abdominal pain 01/02/25 01/02/25 History ueibxr-yayrjwli-dvmyelq 1 cap PO ACHS 01/02/25 01/02/25 History 24,000-76,000-120,000 unit capsule,delayed rel (Creon) Allergies Allergy/AdvReac Type Severity Reaction Status Date / Time latex Allergy Severe Anaphylaxis Verified 01/25/24 16:00 Penicillins Allergy Intermediate Hives Verified 01/25/24 16:00 Sulfa (Sulfonamide Allergy Intermediate Verified 01/25/24 16:00 Antibiotics) adhesive tape AdvReac Verified 01/25/24 16:00 Exam Constitutional Vital Signs, click to edit/add: Last Vital Signs Temp 97.8 F 01/02/25 16:27 Pulse 63 01/02/25 16:27 Resp 16 01/02/25 16:27 BP 148/73 H 01/02/25 16:27 Pulse Ox 100 01/02/25 16:27 O2 Del Method Room Air 01/02/25 16:27 Documenting provider has reviewed patient's vital signs: yes Common normals: no apparent distress Chest Common normals: inspection of chest normal Respiratory Common normals: normal respiratory effort and no retractions Cardio Common normals: regular rate and regular rhythm GI Common normals: Normal to inspection, nondistended, normoactive bowel sounds present and soft to palpation; tender (Diffusely tender but no rebound tenderness, more tenderness in upper abdo) Results Labs Labs: Short CBC 01/02/25 Range/Units 15:15 WBC 6.5 (4.0-11.0) 10^3/uL Hgb 15.1 (12.0-16.0) g/dL Hct 44.5 (36.0-48.0) % Plt Count 214 (150-450) 10^3/uL BMP 01/02/25 15:15 Sodium 141 Potassium 4.3 Chloride 103 Carbon Dioxide 29.3 BUN 28.0 H Creatinine 0.66 Glucose 75 Calcium 9.5 Liver Function 01/02/25 Range/Units 15:15 Total Bilirubin 0.2 (0.2-1.0) mg/dL AST 30 (15-37) U/L ALT 41 (14-59) U/L Alkaline Phosphatase 114 (46-116) U/L Albumin 3.6 (3.4-5.0) g/dL Urine 01/02/25 Range/Units 15:11 Urine Color Lt. yellow (YELLOW) Urine Clarity Clear (CLEAR) Urine pH 7.5 (5.0-9.0) Ur Specific Wrights 1.010 (1.005-1.025) Urine Protein Negative (NEG/TRACE) mg/dL Urine Glucose (UA) Negative (NEGATIVE) mg/dL Assessment and Plan Assessment and Plan (1) Pancreatitis: (2) Acute pancreatitis: (3) Hyperlipidemia: (4) History of prediabetes: (5) Hypertension: Plan Admission findings: Uncontrolled hypertension secondary to acute pancreatitis on top of chronic pancreatitis, significant elevation in her amylase and lipase with deterioration from this morning, lipase is now double what it was this morning Acute on chronic pancreatitis-n.p.o. status, IV fluids overnight, pavement feeling feverish and she has in the past has significant elevation in her liver enzymes concerning for ascending cholangitis will start patient on antibiotics tonight, blood cultures if she does have fever Hypertension-hold off on oral medications is much as possible, as needed hydralazine Hypercholesterolemia-check level in a.m. GERD-IV Protonix Admission status: With patient's progression of symptoms and feverish and her history of requiring 2 to 3-day hospitalization secondary to her acute on chronic pancreatitis, start patient off as inpatient status
--- OUTSIDE RECORDS SUMMARY | 2025-01-02 17:27 | XMS_ITS | CCD ---
Author Organization [facility] Care Team Providers Care Bed And Breakfast Cook Name Role Phone UNKNOWN, PROVIDER Unavailable Unavailable ASHLEY GRIGSBY Unavailable Unavailable UNKNOWN, PROVIDER Unavailable Unavailable ASHLEY GRIGSBY Unavailable Unavailable Ashley Grigsby Primary Care Provider Ashley Grigsby Unavailable Unavailable Unavailable Ashley Grigsby MD Primary Care Provider [phone] Unavailable Unavailable Ashley Grigsby Primary Care Physician [phone] DR CELSO GARIBAY Admitting Unavailclaire GARIBAY, DR CELSO Orozco Attending Unavailabl e DR ASHLEY GRIGSBY Primary Care Unavailable [place], DR CELSO Orozco Consulting Unavailclaire e DR ASHLEY GRIGSBY Primary Care Unavailable DR ASHLEY GRIGSBY Admitting Unavailable DR ASHLEY GRIGSBY Attending Unavailable DR ASHLEY GRIGSBY Consulting Unavailable MALU, DR RONAN Guzman Consulting Unavailable GENTRY HUERTA Consulting Unavailable HAYES, INGA Consulting Unavailable TJCDR MORALES Admitting Unavailable MISC, DR MORALES Attending Unavailable DR ASHLEY GRIGSBY Primary Care Unavailable DR ASHLEY GRIGSBY Consulting Unavailable DR ASHLEY GRIGSBY Admitting Unavailable DR ASHLEY GRIGSBY Attending Unavailable DR ASHLEY GRIGSBY Primary Care Unavailable DR ASHLEY GRIGSBY Consulting Unavailable DR ASHLEY GRIGSBY Admitting Unavailable SEB, DR RAMIREZ Attending Unavailable DR ASHLEY GRIGSBY Primary Care Unavailable DR ASHLEY GRIGSBY Consulting Unavailable MD Ashley Grigsby Primary Care Provider [phone] MD Evert Bruno Attending Provider [phone] Evert Bruno Unavailable MD Ashley Grigsby Primary Care Provider MD Evert Bruno Attending Provider [phone] Ashley Grigsby MD Primary Care Provider GABY PHILLIPS Admitting Unavail able GABY PHILLIPS Attending Unavail able DANIELEstefaniASHLEY Primary Care Unavailable SEB ASHLEY Clements Primary Care Unavailable Ashley Grigsby MD Primary Care Provider [phone] STEPHANIE BERGER Attending Unavailable ASHLEY GRIGSBY M Referring Unavailable HOEstefani ASHLEY M Primary Care Unavailable HOEstefani ASHLEY M Referring Unavailable HOY, ASHLEY M Primary Care Unavailable ALASTAL, YASEEN S Admitting Unavailable ALASTAL, YASEEN S Attending Unavailable ASHLEY GRIGSBY M Primary Care Unavailable MAGO MONAE Attending Unavailable SEB ASHLEY M Primary Care Unavailable ALASTAL, YASEEN S Attending Unavailable ALASTAL, YASEEN S Referring Unavailable SEB ASHLEY M Primary Care Unavailable BARRY MARTINO Attending Unavailab BARRY Rosa Attending Unavailab BARRY Rosa Attending Unavailab Ashley Ruiz MD Primary Care Provider Lynnette Chapman MD Emergency Provider [phone] Donis Arroyo DO Admit Provider Donis Arroyo DO Attending Provider Anita Hammonds RN Unavailable Unavailable Donis Arroyo Admitting Unavailable Bella Stein Referring Unavailable Una Corrales Consulting Unavailable Ashley Grigsby Primary Care Unavailable Kaiser Quijano Attending Unavailable Blas Garibay Consulting Unavailable Arvind Sanchez Consulting Unavailable Celso Ann Consulting Unavail able Nyasia Marquez Consulting Unavailable Samuel Olson Consulting Unavailab Cindy Urias Consulting Unavailable Cierra Artis Consulting Unavailable Durga Guerra Consulting Unavailab Toya Marsh Consulting Unavailable Jackie Daugherty Consulting Unavailable RADHA JAIMES Referring Unavailable HOY, ASHLEY M Primary Care Unavailable CELSO GARIBAY Attending Unavailable CELSO GARIBAY Referring Unavailable ASHLEY GRIGSBY Primary Care Unavailable CELSO GARIBAY Attending Unavailable ASHLEY GRIGSBY Primary Care Unavailable Ashley Grigsby MD Primary Care Provider [phone] Ashley Grigsby MD Primary Care Provider [phone] RAJI BYRD Attending Unavailable RAJI BYRD Referring Unavailable DANIELLE CESAR Attending Unavailable CHAUNCEY KIMBLE Attending Unavailable Allergies Allergy Classification Reported Allergen(s) Allergy Type Date of Onset Reaction(s) Facility (20 sources) Baclofen; Translations: [Baclofen TABS] Drug Allergy 017 Other (See Comments), Shortness of breath [place], [place] (20 sources) Latex; Translations: [LATEX] Propensity to adverse reactions to drug 006 Anaphylaxis, Shortness Of Breath, Anaphylaxis (disorder) [place] (16 sources) Penicillins; Translations: [penicillins] Propensity to adverse reactions to drug 006 Hives, Anaphylaxis (disorder) [place] (3 sources) rosuvastatin Drug Allergy 019 [place], [place] (20 sources) Sulfamethoxazole / Trimethoprim; Translations: [Bactrim TABS] Drug Allergy 019 [place], [place] (11 sources) natural latex rubber Allergy to substance (finding) Shortness of breath [facility] [employer] DO Work Phone: (11 sources) Penicillins; Translations: [Penicillins] Allergy to drug (finding) [facility] Work Phone: (20 sources) rosuvastatin; Translations: [Crestor TABS] Drug Allergy 017 Elevated liver enzymes level (finding), Other, Other (See Comments) [facility] (16 sources) Sulfonamides (Antibiotic); Translations: [Sulfa Drugs] Allergy to drug (finding) [facility] (20 sources) levoFLOXacin; Translations: [levofloxacin] Drug Allergy 017 Other (See Comments), Candidiasis (disorder) [employer] Work Phone: (8 sources) Phenazopyridine; Translations: [PHENAZOPYRIDINE HCL] Drug Allergy Nausea And Vomiting [employer] Work Phone: (3 sources) Simvastatin; Translations: [SIMVASTATIN] Drug Allergy [employer] Work Phone: (5 sources) Sulfonamides (Antibiotic) Propensity to adverse reactions to drug Other (See Comments), Hives, Shortness of breath [employer] (12 sources) Tobramycin; Translations: [tobramycin] Drug Allergy 023 Eruption of skin (disorder), Rash [facility] (1 source) Baclofen Drug Allergy [facility] (1 source) Latex Drug allergy (disorder) [facility] (5 sources) levoFLOXacin; Translations: [Levaquin] Drug Allergy thrush [facility] (1 source) Penicillins Drug allergy (disorder) [facility] (1 source) rosuvastatin Drug Allergy [facility] (1 source) Sulfonamides (Antibiotic) Drug allergy (disorder) [facility] (11 sources) rosuvastatin; Translations: [ROSUVASTATIN] Drug Allergy 017 Gastrointestinal Upset [facility] (5 sources) Sulfamethoxazole; Translations: [sulfamethoxazole] Drug Allergy 023 Hives, Hives, ([place]) 08/08/2011 [facility] (10 sources) Trimethoprim; Translations: [trimethoprim] Drug Allergy 023 Hives, Hives, ([place]) 08/08/2011 [facility] (6 sources) Fenofibrate; Translations: [FENOFIBRATE] Drug Allergy 009 ([place]) 08/08/2011 [facility] (3 sources) Penicillin Drug Allergy ([place]) 08/08/2011 [employer] Other (9 sources) Substance with sulfonamide structure and antibacterial mechanism of action (substance) Drug allergy 06-14-2 006 Shortness of breath, Hives [facility] Other (7 sources) Penicillins Propensity to adverse reactions to drug Hives, Rash [facility] (4 sources) Tobramycin Drug Allergy 023 Rash [facility] (7 sources) Fenofibrate; Translations: [FENOFIBRATE MICRONIZED] Drug Allergy 009 [facility] (7 sources) Sulfonamides (Antibiotic); Translations: [SULFA (SULFONAMIDE ANTIBIOTICS)] Propensity to adverse reactions to drug (disorder) Unknown Reaction [facility] (1 source) Baclofen Drug Allergy [facility] (1 source) Fenofibrate Drug Allergy [facility] (1 source) Latex Drug allergy (disorder) [facility] (1 source) levoFLOXacin Drug Allergy [facility] (1 source) Penicillins Drug allergy (disorder) [facility] (3 sources) Baclofen Drug Allergy 017 Other, Shortness of breath [facility] (3 sources) Fenofibrate Drug Allergy 009 GI intolerance [facility] (4 sources) fluvastatin; Translations: [FLUVASTATIN] Drug Allergy [facility] (3 sources) Latex Allergy to substance Anaphylaxis, Shortness of breath [facility] (3 sources) Penicillins Drug Intolerance 006 Hives, Rash [facility] (4 sources) Phenazopyridine; Translations: [PHENAZOPYRIDINE] Drug Allergy GI intolerance [facility] (1 source) natural latex rubber; Translations: [LATEX, NATURAL RUBBER] Propensity to adverse reactions to drug (disorder) [facility] Rep[facility] Medications Current Medications Medication Drug Class(es) [...] Atherosclerosis of coronary artery bypass graft of [place] heart without angina pectoris , History of [...] 0 Start Date: 06/02/22 Status: Ordered Calcium (11 sources) Phosphate Binder, Calcium calcium 200 MG table t Take by mouth Active Calcium TABS FABIOLA E 1 TABLET 3 times daily Quantity: 0 Refills: 0 Ordered: 15-Aug-2022 DO Active Calcium Carbonate (11 sources) take 1 tablet by gavin th once daily calcium carbonate (CALCIUM 500 ORAL) Take 1 tablet by mouth once daily. Active calcium carbonat e (OS-ARLEY) 600 mg (1,500 mg) tablet Take 500 mg by mouth 3 (three) times a day with meals. Active take 1 tablet by mouth once milan y calcium carbonate (CALCIUM 500 ORAL) Take 1 tablet by mouth once daily. 0 Active take 1 tablet by gavin th every twelve hours Calcium 600 MG 1 tablet with meals Orall y Twice a day for 30 day(s) Active calcium chloride 0.0014 meq/ml / potassium chloride 0.004 meq/ml / sodium chloride 0.103 meq/ml / sodium lactate 0.028 meq/ml injectable solution (1 source) Start: 06-18-2023 lactated ringe rs IV soln infusion cholecalciferol 0.125 mg oral capsule (3 sources) Vitamin D take 2 capsules by mouth four times weekly cholecalciferol, vitamin D3, (VITAMIN D3) 5,000 units capsule Take 10,000 Units by mouth 4 (four) times a week. Active citalopram 40 mg oral tablet (15 sources) Serotonin Reuptake Inhibitor Start: 04-10-2024 take 1 tablet by mouth once daily citalopram (CeleXA) 40 mg tablet Take 1 tablet (40 mg) by mouth once daily. 08/03/2024 Active Start: 11-01-2022 take 4 tablets by mo [facility] once daily Citalopram 10 mg tablet Active 40 MG PO Daily November 01, 2022 12:00am Start: 11-01-2022 take 10 mg by mouth once daily Citalopram Active 10 MG PO Daily November 01, 2022 1:00am End: 08-13-2024 citalopram (CeleXA) 20 MG ta blet Take 20 mg by mouth Active take 2 tablets by mo uth once daily citalopram (CELEXA) 10 MG tablet Take 2 tablets by mouth daily 0 Active clopidogrel 75 mg oral tablet (2 sources) P2Y12 Platelet Inhibitor Start: 09-05-2024 End: 09-05-2025 take 1 tablet by mouth once daily clopidogrel (Plavix) 75 mg tablet Indications: Atherosclerosis of coronary artery bypass graft of [place] heart without angina pectoris , S/P PTCA [...] Active docusate sodium 100 mg oral capsule (17 sources) take 1 capsule by mouth twice daily docusate sodium (Colace) 100 mg capsule Take 1 capsule (100 mg) by mouth 2 times a day. Active ergocalciferol 1.25 mg oral capsule (3 sources) Provitamin D2 Compound Start: take 1 capsule by mouth two times weekly Vitamin D (Ergocalciferol) 22779 UNIT 1 capsule Orally TWICE a Week for 90 day(s) May, Active estradiol 0.1 mg/ml vaginal cream (5 sources) Estrogen Start: Estradiol 0.01 % (0.1 mg/gram) cream Active [...] 3 weeks, then 3x per week thereafter, [id number], 160, cm, 04/10/24 15:13:00 EDT, Height/Length Dosing, 74, kg, 04/10/24 15:13:00 EDT, Weight Dosing Start Date: 04/10/24 Status: Ordered fluticasone propionate 0.05 mg/actuat metered dose nasal spray (20 sources) Corticosteroid Start: 01-17-2024 End: 02-29-2024 take 2 spray(s) nasal route in the morning fluticasone propionate (FLONASE) 50 mcg/actuation nasal spray Administer 2 sprays into each nostril in the morning. 16 g 11 02/14/2024 Active Start: 11-01-2022 Fluticasone Pr opionate 50 mcg/actuation [...] Start: 04-30-2020 fluticasone 0. 05 mg/inh [place]al [place] Refill(s) 0 Start Date: 04/30/20 Status: Ordered Start: 10-24-2017 End: 02-29-2024 take 2 spray(s) nasal route once daily fluticasone (FLONASE) 50 mcg/actuation nasal spray Indications: Chronic pansinusitis Administer 2 sprays into each nostril daily. 16 g 11 10/24/2017 02/29/2024 Discontinued (Duplicate Listing) fluticasone 0.05 mg/inh Nasal [place] (3 sources) Start: 04-30-2020 fluticasone 0.05 mg/inh Nasal [place] Refill(s) 0 Start Date: 04/30/20 Status: Ordered furosemide 40 mg oral tablet (3 sources) Loop Diuretic take 1 tablet by mouth every twenty-fou r hours Lasix 40 MG 1 tablet Orally Once a day for 30 day(s) Active hydroCHLOROthiazide 12.5 mg oral tablet (20 sources) Thiazide Diuretic Start: 07-19-2023 End: 07-13-2024 take 6.25 mg by mouth once daily hydrochlorothiazide 12.5 mg Tab 6.25 mg = 0.5 tab(s), Oral, Daily, X 90 day(s), # 45 tab(s), Refills(s) 3, Pharmacy: [facility], 160, cm, 06/02/22 8:29:00 EDT, Height/Length [...] Daily, # 90 tab(s), Refills(s) 3, Pharmacy: [facility], 160, cm, 05/27/21 8:19:00 EDT, Height/Length [...] day(s), # 30 tab(s), Refills(s) 11, Pharmacy: [facility] #[id number], 160, cm, 04/10/24 15:13:00 EDT, Height/Length Dosing, [...] 2 PO) Take by mouth 0 Active nrltrffy-ovji-ZG-arley cium &mins (THERAGRAN-M) 9 mg iron-400 mcg tablet (3 sources) smknmyvt-icgg-VD - calcium &mins (THERAGRAN-M) 9 mg iron-400 mcg tablet Take 1 tablet by mouth in the morning. Active multivit-min/ferrous fumarate (MULTI VITAMIN ORAL) (3 sources) take 1 tablet by mouth twice daily multivit-min/ferr ous fumarate (MULTI VITAMIN ORAL) Take 1 tablet by mouth 2 times a day. Active take 1 tablet by mouth twice sudeep ly multivit-min/ferrous fumarate (MULTI VITAMIN ORAL) Take 1 tablet by mouth 2 times a day. 0 Active Zvvrtfeifxty-Mba-Wcka-Fa-Vit K (Bariatric Multivitamins) 45 mg iron- 800 mcg-120 mcg Capsule (4 sources) Start: 11-01-2022 take 1 capsule by mouth twice daily Dlmxhmwoktjt-Bkk-Wiww-Fa-Vit K (Bariatric Multivitamins) 45 mg iron- 800 mcg-120 mcg Capsule Active 1 CAP PO Twice daily November 01, 2022 1:00am Start: 11-01-2022 take 1 capsule by mo [facility] twice daily Quaqdznrevdq-Hrf-Reyt-Fa-Vit K (Bariatri c Multivitamins) 45 mg iron- [...] tablet Indications: Atherosclerosis of coronary artery of [place] heart without angina pectoris, unspecified vessel or lesion type Place 1 tablet (0.4 mg) under the tongue every 5 minutes if needed for chest pain. 90 tablet 3 08/14/2023 Active Nitrostat 0.4 MG 1 tablet under the tongue Sublingual as directed for 30 day(s) Active nystatin 100 unt/mg topical powder (17 sources) Polyene Antifungal Start: 05-05-2020 nystatin (N yamyc) 100,000 unit/gram powder apply topically to affected area twice a day if needed 05/05/2020 Active Start: 04-19-2018 NYSTOP powder 04/19/2018 Active omega-3 acid ethyl esters (fdc) 1000 mg oral capsule (3 sources) take 2 capsules by mouth every twelve hours Lovaza 1 GM 2 capsules Orally Twice a day for 30 day(s) Active 2 ml ondansetron 2 mg/ml injection (8 sources) Serotonin-3 Receptor Antagonist Start: 3 End: 3 4 mg, IntraVENous, ONCE PRN, 1 dose, Starting on Sun06/18/23 at 1449, Until Sun06/19/23 at 1449, Nausea Initial antiemetic therapy. PACU only Start: 10-04-2022 take 1 tablet by gavin th every eight hours as needed for nausea ondansetron ODT (ZOFRAN ODT) 4 mg disintegrating tablet Dissolve 1 tablet (4 mg total) on tongue every 8 (eight) hours as needed for nausea for up to 10 doses. 10 tablet 10/04/2022 Active Start: 04-17-2018 End: 04-22-2018 take 1 tablet by mouth every eight hours as needed for nausea and vomiting Ondansetron (Zofran Odt) 8 mg tablet,disintegrating Discontinued 8 MG PO Q8H as needed for nausea and vomiting 10 5 April 16, 2018 11:00pm April 20, 2018 11:00pm April 21, 2018 11:01pm polyethylene glycol 3350 [id number] mg / potassium chloride 2970 mg / sodium bicarbonate 6740 mg / sodium chloride 5860 mg / sodium sulfate 65224 mg powder for oral solution (3 sources) [...] 2022 12:00am take 1 tablet by gavin every twelve hours Promethazine HCl 25 MG [...] Start: 04-17-2018 take 1 tablet by gavin twice daily Rabeprazole 20 mg tablet,delayed release (DR/EC) Active 20 MG PO Twice daily April 16, 2018 11:00pm take 1 tablet by gavin three times daily Aciphex EC tablet Take 1 tablet (20 mg) by mouth 3 times a day. Active sod dusdu-dwidmk-iznizl bottle (NEILMED SINUS RINSE COMPLETE) packet with rinse device nasal solution (3 sources) Start: 09-13-2017 take 1 dose nasal route once daily sod ajrbu-fifxhi-xyiuzs bottle (NEILMED SINUS RINSE COMPLETE) packet with rinse device nasal solution Indications: S/P nasal septoplasty Administer 1 packet into each nostril daily. 60 packet 09/13/2017 Active 5 ml sodium chloride 9 mg/ml injection (9 sources) Start: 06-18-2023 take 1 dose intravenously twice daily 5-40 mL, IntraVENous, EVERY 12 HOURS SCHEDULED (2 times per day), First dose on Sun06/18/23 at 2100, Until Discontinued For Line Patency: Peripheral IV = 5 mL; Midline or Central Line = 10 mL/lumen. &nbsp ;If following IV push medication, administer flush at [...] day(s), # 180 cap(s), Refills(s) 3, Pharmacy: [facility], 160, cm, 05/27/21 8:19:00 EDT, Height/Length Dosing, 61, kg, 05/27/21 8:19:00 EDT, Weight Dosing Start Date: 03/14/22 Stop Date: 03/09/23 Status: Ordered Start: 04-17-2018 take 1 capsule by mo ut once daily tamsulosin (Flomax) 0.4 mg 24 hr capsule Take 1 capsule (0.4 mg) by mouth once daily. 10/26/2020 Active take 1 capsule by mo [facility] every twenty-four hours in the morning tamsulosin (Flomax) 0.4 MG 24 hr capsule Take 0.4 mg by mouth in the morning. Active traMADol hydrochloride 50 mg oral tablet [...] capsule (3 sources) take 1 capsule by mo uth every twenty-four hours Coenzyme Q-10 200 MG 1 capsule with a meal Orally Once a day for 30 day(s) Active vibegron 75 MG Oral Tablet [Gemtesa] (1 source) Start: 04-10-2024 End: 04-05-2025 take 1 tablet by mouth once daily Gemtesa 75 mg oral tablet 75 mg = 1 tab(s), Oral, Daily, X 30 day(s), # 30 tab(s), Refills(s) 11, Pharmacy: [facility] #[id number], 160, cm, 04/10/24 15:13:00 EDT, Height/Length Dosing, 74, kg, 04/10/24 15:13:00 EDT, Weight Dosing Start Date: 04/10/24 Stop Date: 04/05/25 Status: Ordered vit C,Z-Fz-tteec-lutein-zeaxan (PRESERVISION AREDS-2) 250-90-40-1 mg capsule (1 source) vit C,H-Og-hyons-lutein-z eaxan (PRESERVISION AREDS-2) 250-90-40-1 mg capsule Take 2 tablets by mouth in the morning and at bedtime. Active vit C/E/Zn/coppr/lutein/zeaxan (PRESERVISION AREDS-2 ORAL) (3 sources) [...] a day for 30 day(s) Active vitamins A,C,D-xdog-yfvwmu (1 source) Start: 08-19-2024 vitamins A,C,M-edon-ywlrzc Active PO August 19, 2024 12:00am Zyrtec Hives Relief 10 MG (3 sources) take 1 tablet by mouth once daily Zyrtec Hives Relief 10 MG 1 tablet Orally Once a day for 30 day(s) Active Completed/Discontinued Medications Medication Drug Class(es) Dates Sig (Normalized) Sig (Original) acetaminophen 325 mg oral tablet (4 sources) Start: 06-18-2023 End: 06-18-2023 acetaminophen (TYLENOL) tablet 650 mg take 2 tablets by mo uth every six hours as needed for pain acetaminophen (TYLENOL EXTRA STRENGTH) 5 00 mg tablet Take 2 tablets (1,000 mg total) by mouth every 6 (six) hours as needed for pain. Active acetaminophen 325 mg / oxyCODONE hydrochloride 5 [...] tablets by mo uth every four hours as needed for pain Oxycodone-Acetaminophen (Percocet) 5-325 mg tablet Active 2 TAB PO Q4H as needed for pain April 17, 2018 ascorbic acid 226 mg / beta carotene 39672 unt / cuprous oxide 0.8 mg / dl-alpha tocopheryl acetate 200 unt / zinc oxide 34.8 mg oral capsule (11 sources) Vitamin C take 2 capsules by mouth twice daily PreserVision AREDS Oral Capsule TAKE 2 CAPSULE Twice daily Quantity: 0 Refills: 0 Ordered: 17-Aug-2021 DO Active carvedilol 6.25 mg oral tablet (9 sources) alpha-Adrenergic Boom, beta-Adrenergic Boom Start: 11-03-2020 Carvedilol 6.25 MG Oral Tablet Quantity: 180 Refills: 0 Ordered: 03-Nov-2020 DO Start : 03-Nov-2020 Complete Start: 04-17-2018 End: 11-01-2022 take 1 tablet by mouth twice daily Carvedilol 25 mg tablet Discontinued 25 MG PO Twice daily April 16, 2018 11:00pm November 01, 2022 10:47am take 1 tablet by gavin th every [...] 22, 2018 11:00pm April 23, 2018 11:01pm cevimeline 30 mg oral capsule (20 sources) Cholinergic Receptor Agonist Start: 11-03-2020 End: 02-29-2024 take 1 capsule by mouth three times daily cevimeline (EVOXAC) 30 mg capsule Indications: Xerostomia Take 1 capsule (30 mg total) by mouth 3 (three) times a day. 270 capsule 4 02/14/2024 02/29/2024 Discontinued (Duplicate Listing) Start: 10-27-2019 take 1 mg by mouth t hree times daily cevimeline See Instructions, mg Oral TID, Refills(s) 0 Start Date: 10/27/19 Status: Ordered Start: 04-17-2018 End: 01-17-2024 cevimeline (EVOXAC) 30 mg ca psule Indications: Xerostomia TAKE 1 CAPSULE 4 TIMES DAILY 360 capsule 3 08/17/2022 01/17/2024 Discontinued (Reorder) take 25 mg by mouth three times daily CEVIMELINE HCL PO Take 25 mg by mouth 3 times daily 0 Active dimenhyDRINATE 50 mg oral ta blet (1 source) Start: 06-18-2023 End: 06-18-2023 dimenhyDRINATE [...] Ordered: 18-Oct-2020 DO Start : 18-Oct-2020 Complete famotidine 20 mg oral tablet (3 sources) Histamine-2 Receptor Antagonist Start: 10-04-2022 End: 02-29-2024 take 1 tablet by mouth in the morning, then take 1 tablet by mouth at bedtime famotidine (PEPCID) 20 mg tablet Take 1 tablet (20 mg total) by mouth in the morning and 1 tablet (20 mg total) before bedtime. 20 tablet 10/04/2022 02/29/2024 Discontinued (Therapy completed) fenofibric acid 135 mg delayed release oral [...] Sun06/18/23 at 1449, Until Discontinued, Pain Moderate (4-6) [...] / neomycin 3.5 mg/ml / polymyxin b 33219 unt/ml ophthalmic suspension (3 sources) Aminoglycoside Antibacterial, Polymyxin-class Antibacterial, Corticosteroid Start: 06-13-2021 take 2 drop(s) into the eye(s) four times daily Neomycin-Polymyxin- HC 3.5-66934-1 Ophthalmic Suspension instill 2 drops INTO AFFECTED [...] Classification Problem Date Documented Da te Episodic/Chronic Acute myocardial infarction (3 sources) Acute myocardial infarction; Translations: [Acute myocardial infarction, unspecified] Onset: 7 07-10-2017 Chronic Biliary tract disease (4 sources) Choledochal cyst; 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 Calculus of urinary tract (12 sources) Kidney stone; Translations: [Calculus of kidney] Onset: 2 Episodic Cancer of colon (2 sources) Personal history of other malignant neoplasm of large intestine; Translations: [Personal history of other malignant neoplasm of large intestine] Onset: 5 Episodic Cardiac and circulatory congenital anomalies (14 sources) Ventricular septal defect; Translations: [Ventricular septal defect] Onset: 3 08-09-2023 Chronic Cardiac dysrhythmias (14 sources) Paroxysmal supraventricular tachycardia; Translations: [Paroxysmal supraventricular tachycardia] Onset: 3 08-09-2023 Chronic Coagulation and hemorrhagic disorders (3 sources) Disorder of hemostatic system; Translations: [Coagulation defect, unspecified] Onset: 7 07-10-2017 Chronic Complication of device; implant or graft (4 sources) Arteriosclerosis of coronary artery bypass graft; Translations: [Atherosclerosis of coronary artery bypass graft(s) without angina pectoris] Onset: 3 09-05-2024 Chronic Coronary atherosclerosis and other heart disease (20 sources) Coronary atherosclerosis; Translations: [Coronary atherosclerosis of [place] coronary artery] Onset: 2 Chronic Coronary atherosclerosis and other heart disease (7 sources) Patient post percutaneous transluminal coronary angioplasty; Translations: [Coronary angioplasty status] Onset: 3 09-05-2024 Episodic Diabetes mellitus without complication (3 sources) Diabetes mellitus; Translations: [Type 2 diabetes mellitus without complications] Onset: 7 07-10-2017 Chronic Diabetes mellitus without complication (1 source) Diabetes mellitus without complication Onset: 7 Disorders of lipid metabolism (20 sources) Hyperlipidemia; Translations: [Other and unspecified hyperlipidemia] Onset: 3 08-09-2023 Chronic Esophageal disorders (3 sources) Gastroesophageal reflux disease; Translations: [Gastro-esophageal reflux disease without esophagitis] Onset: 7 07-10-2017 Chronic Essential hypertension (20 sources) Benign essential hypertension; Translations: [Benign essential hypertension] Onset: 7 08-14-2023 Chronic Genitourinary symptoms and ill-defined conditions (5 sources) Mixed incontinence; Translations: [Incontinence] Onset: 2 Chronic Genitourinary symptoms and ill-defined conditions (2 sources) Genitourinary tract problem; Translations: [Other symptoms and signs involving the genitourinary system] Onset: 4 Episodic Inflammation; infection of eye (except that caused by tuberculosis or sexually transmitteddisease) (3 sources) Chronic allergic conjunctivitis; Translations: [Other chronic allergic conjunctivitis] Onset: 1 09-13-2021 Chronic Menopausal disorders (2 sources) Postmenopausal bleeding; Translations: [Postmenopausal bleeding] Onset: 3 06-18-2023 Chronic Nonspecific chest pain (3 sources) Atypical chest pain; Translations: [Other chest pain] Onset: 4 08-18-2024 Episodic Other aftercare (1 source) jail (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; 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] Onset: 3 Episodic Other aftercare (1 source) Other emt intermediate (current) drug therapy; Translations: [OTH RESIDENTIAL CURRENT DRUG THERAPY] Onset: 3 Episodic Other aftercare (2 sources) Encounter for follow-up examination after completed treatment for malignant neoplasm; Translations: [Encounter for follow-up examination after completed treatment for malignant neoplasm] Onset: 5 Episodic Other and ill-defined heart disease (3 sources) Heart disease; Translations: [Heart disease, unspecified] Onset: 7 07-10-2017 Chronic Other connective tissue disease (1 source) Pain in left arm; Translations: [Pain in left arm] Onset: 5 Episodic Other connective tissue disease (1 source) Pain in right arm; Translations: [Pain in right arm] Onset: 5 Episodic Other connective tissue disease (2 sources) Tendonitis of right wrist; Translations: [Other enthesopathies, not elsewhere classified] 11-26-2024 Episodic Other diseases of bladder and urethra [...] 4 Chronic Other gastrointestinal disorders (3 sources) Constipation; Translations: [Constipation, unspecified] Episodic Other gastrointestinal disorders (1 source) Constipation, unspecified Episodic Other liver diseases (2 sources) Liver disease, unspecified; Translations: [Liver disease, unspecified] Onset: 4 Chronic Other liver diseases (3 sources) Elevated liver enzymes level; Translations: [Abnormal levels of other serum enzymes] Episodic Other liver diseases (1 source) Abnormal levels of other serum enzymes Episodic Other non-traumatic joint disorders (2 sources) Pain in wrist; Translations: [Pain in right wrist] 11-25-2024 Episodic Other nutritional; endocrine; and metabolic disorders [...] less than 30; Translations: [Overweight] Episodic Other skin disorders (1 source) Epidermoid cyst; Translations: [Epidermal cyst] 06-18-2023 Episodic Other skin disorders (1 source) Epidermal cyst; Translations: [Epidermal cyst] Onset: 3 Episodic Other upper respiratory disease (1 source) Allergic rhinitis, unspecified; Translations: [Allergic rhinitis, unspecified] Onset: 4 Chronic Other upper respiratory disease (1 source) Allergic rhinitis; Translations: [Allergic rhinitis, unspecified] 01-17-2024 Chronic Residual codes; unclassified (4 sources) Other specified health status; Translations: [Other drug allergy] Onset: 4 09-05-2024 Episodic Unclassified (1 source) Presence of aortocoronary bypass graft / Z95.1(ICD-9) Onset: 7 Unclassified (1 source) 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) [...] Other Problems Problem Classification Problem Date Documented Da te Episodic/Chronic Abdominal pain (18 sources) Abdominal pain; Translations: [Unspecified abdominal pain] Onset: 06-02-2022 Episodic Diseases of mouth; excluding dental (6 sources) Disturbances of salivary secretion; Translations: [Xerostomia] Onset: 09-13-2021 01-17-2024 Episodic Mood disorders (3 sources) Mood disorders Onset: 10-13-2020 10-13-2020 Other diseases of kidney and ureters (3 sources) Kidney disease; Translations: [Disorder of kidney and ureter, unspecified] Onset: 07-10-2017 07-10-2017 Episodic Other gastrointestinal disorders (4 sources) Bariatric surgery status; Translations: [BARIATRIC SURGERY STATUS] Onset: 10-10-2022 Episodic Other nutritional; endocrine; and metabolic disorders (2 sources) Abnormal weight loss; Translations: [Abnormal weight loss] Onset: 02-27-2024 Episodic Other screening for suspected conditions (not mental disorders or infectious disease) (8 sources) Other specified abnormal findings of blood chemistry; Translations: [Patient encounter status] Onset: 10-10-2022 Episodic Other upper respiratory disease (1 source) Other specified disorders of nose and nasal sinuses; Translations: [Other specified disorders of nose and nasal sinuses] Onset: 03-20-2022 Episodic Other upper respiratory disease (4 sources) Nasal mucosa dry; Translations: [Other specified disorders of nose and nasal sinuses] Onset: 03-20-2022 01-17-2024 Episodic Pancreatic disorders (not diabetes) (12 sources) Idiopathic acute pancreatitis without necrosis or infection; Translations: [Acute pancreatitis without necrosis or infection, unspecified] Onset: 10-09-2022 Episodic Unclassified (1 source) Encounter for preprocedural cardiovascular examination; Translations: [Encounter for preprocedural cardiovascular examination] Onset: 08-29-2017 Unclassified (11 sources) Never smoked tobacco; Translations: [Never a smoker] Results Test Name Value Interpretation Reference Range Facility Follow-Upon 12-12-2024 Follow-Up [id number] Diana Saleem tte 1965 F Date Provider Department Center 12/12/2024 [facility] Family History Problem Relation Age of Onset Hyperlipidemia Mother Hyperlipidemia Father Hyperlipidemia Brother Heart attack Brother Family Status - Relation Status Age at Mother Father Brother Brother Level of Service:13500 [place] OFFICE/OUTPATIENT NEW MODERATE MDM 45 MINUTES (GC) Reason for Visit and Comments: Pancreatitis [735932] - Pain when she stresses or when she eats. She has trouble with losing weight as she always feels bloated and gassy. Normal [facility] XR Wrist - right 2 Viewson 0 11-26-2024 Imaging Result: AP and Lateral Right Wrist: Bone Structure: No acute fracture or dislocation Joint Spaces: The carpal joint spaces are well preserved, mild joint space narrowing and remodeling with subchondral sclerosis distal radius favoring arthritis. , Scapho-lunate interval within normal limit. Soft tissue: No swelling or calcification Impression: No acute bony process Right Wrist [facility] Radiology Study observation (narrative) [facility] XR FOREARM RT 2 VWSon 2024 XR FOREARM RT 2 VWS XR FOREARM RT 2 VWS CLINICAL INFORMATION: Right arm pain TECHNIQUE: XR FOREARM RT 2 VWS 2 views right forearm are obtained. There is no acute osseous, articular, or soft tissue abnormality. IMPRESSION: Negative exam. Finalized by Afshin Barrett MD on 10/11/2024 1:59 PM Normal [facility] ECG 12 lead ECGon 08-22-2024 ECG 12 lead ECG [facility] Main [place] [id number] Electrocardiograph Report Signed Patient: Jose Alberto Saleem MR#: [id number] : 1965 Acct:[id number] Age/Sex: 59 / F ADM Date: 08/20/24 Loc: 4 Room: [address] [place] [address] Type: DIS IN Attending Dr: Kaiser Quijano [...] abnormality Abnormal ECG Confirmed by Bella Stein ([id number]) on 08/22/2024 11:33:07 PM Referred By: Bella Stein Electronically Signed By: Bella Stein Transcribed By: MUS Signed By Bella Stein MD 4 2333 Normal [facility] Troponin I High Sensitivityo n 08-22-2024 Troponin I High Sensitivity 1211.6 pg/mL Off scale high 0.0-15.0 [facility] Comment on above: Result Comment: Crit ical Result : Called to and read back by: ROB MCDONALD at: 08/22/2024 06:38:37 by:RAMONA PERFORMED BY: [place] [address] PATHOLOGIST ICE CRUSHER JANA OLMEDO M.D. Performed By: #### H S TROP ####[address] Blood Urea Nitrogenon 2023 Urea nitrogen [Mass/Vol] 14 mg/dL Normal 7-25 [facility] Comment on above: Performed By: #### C REAT, BUN, PP, CBC, LYTES ####[place] [address] [place] [id number] [facility] Coagulation Profileon 2023 aPTT Coag (Bld) [Time] 35.9 s Normal 25.1-36.5 [facility] Comment on above: Result Comment: A he matocrit value greater than 55% may lead to inaccurate results in coagulation testing. Patients having hematocrit values >55% require a special collection tube for coagulation studies. Please contact the laboratory at [phone] for redraw instructions. PERFORMED BY: [facility] [address] [place] [id number] PATHOLOGIST ICE CRUSHER JANA OLMEDO M.D. Performed By: #### C REAT, BUN, PP, CBC, LYTES ####[place] [address] [place] [id number] [facility] INR Coag (PPP) [Relative time] 1.1 {INR} Normal [facility] Comment on above: Result [...] #### C REAT, BUN, PP, CBC, LYTES ####[place] [address] [place] [id number] [facility] PT Coag (PPP) [Time] 12.2 s Normal 9.0-12.9 [facility] Comment on above: Result Comment: A he matocrit value greater than 55% may lead to inaccurate results in coagulation testing. Patients having hematocrit values >55% require a special collection tube for coagulation studies. Please contact the laboratory at [phone] for redraw instructions. Performed By: #### C REAT, BUN, PP, CBC, LYTES ####[place] [address] [place] [address] [facility] Complete Blood Count Auto Di ffon 08-21-2024 Basophils (Bld) [#/Vol] 0.0 10*3/uL Normal 0.0-0.2 [facility] Comment on above: Result Comment: PERF ORMED BY: [facility] [address] [place] [address] PATHOLOGIST ICE CRUSHER JANA OLMEDO M.D. Performed By: #### C REAT, BUN, PP, CBC, LYTES ####[address] Basophils/100 WBC (Bld) 0.3 % Normal . [facility] Comment on above: Performed By: #### C REAT, BUN, PP, CBC, LYTES ####[address] Eosinophils (Bld) [#/Vol] 0.2 10*3/uL Normal 0.0-0.45 [facility] Comment on above: Performed By: #### C REAT, BUN, PP, CBC, LYTES ####[address] Eosinophils/100 WBC (Bld) 3.9 % Normal . [facility] Comment on above: Performed By: #### C REAT, BUN, PP, CBC, LYTES ####[address] Erythrocyte distribution width (RBC) [Ratio] 12.7 % Normal 11.9-15.3 [facility] Comment on above: Performed By: #### C REAT, BUN, PP, CBC, LYTES ####[address] Hematocrit (Bld) [Volume fraction] 42.5 % Normal 34.0-46.4 [facility] Comment on above: Performed By: #### C REAT, BUN, PP, CBC, LYTES ####[address] Hemoglobin (Bld) [Mass/Vol] 14.6 g/dL Normal 11.8-15.4 [facility] Comment on above: Performed By: #### C REAT, BUN, PP, CBC, LYTES ####[address] Lymphocytes (Bld) [#/Vol] 1.7 10*3/uL Normal 1.00-4.8 [facility] Comment on above: Performed By: #### C REAT, BUN, PP, CBC, LYTES ####[address] Lymphocytes/100 WBC (Bld) 35.0 % Normal . [facility] Comment on above: Performed By: #### C REAT, BUN, PP, CBC, LYTES ####[address] MCH (RBC) [Entitic mass] 30.8 pg Normal 24.7-34.3 [facility] Comment on above: Performed By: #### C REAT, BUN, PP, CBC, LYTES ####[address] MCV (RBC) [Entitic vol] 89.8 fL Normal 80-100 [facility] Comment on above: Performed By: #### C REAT, BUN, PP, CBC, LYTES ####[address] Mean Corpuscular HGB Conc 34.3 g/dL Normal 32.0-35.0 [facility] Comment on above: Performed By: #### C REAT, BUN, PP, CBC, LYTES ####[address] Monocytes (Bld) [#/Vol] 0.5 10*3/uL Normal 0.0-0.8 [facility] Comment on above: Performed By: #### C REAT, BUN, PP, CBC, LYTES ####[address] Monocytes/100 WBC (Bld) 10.9 % Normal . [facility] Comment on above: Performed By: #### C REAT, BUN, PP, CBC, LYTES ####[address] Neutrophils (Bld) [#/Vol] 2.5 10*3/uL Normal 1.8-7.7 [facility] Comment on above: Performed By: #### C REAT, BUN, PP, CBC, LYTES ####[address] Neutrophils/100 WBC (Bld) 49.9 % Normal . [facility] Comment on above: Performed By: #### C REAT, BUN, PP, CBC, LYTES ####[address] NRBC% 0.1 /100{WBC} Normal 0-0.5 [facility] Comment on above: Performed By: #### C REAT, BUN, PP, CBC, LYTES ####[address] Platelet mean volume (Bld) [Entitic vol] 7.7 fL Normal 6.3-10.7 [facility] Comment on above: Performed By: #### C REAT, BUN, PP, CBC, LYTES ####[address] Platelets (Bld) [#/Vol] 172 10*3/uL Normal 150-450 [facility] Comment on above: Performed By: #### C REAT, BUN, PP, CBC, LYTES ####[address] RBC (Bld) [#/Vol] 4.73 10*6/uL Normal 3.60-5.00 [facility] Comment on above: Performed By: #### C REAT, BUN, PP, CBC, LYTES ####[address] WBC (Bld) [#/Vol] 4.9 10*3/uL Normal 3.8-11.6 [facility] Comment on above: Performed By: #### C REAT, BUN, PP, CBC, LYTES ####[address] Creatinineon 08-21-2024 Creatinine [Mass/Vol] 0.61 mg/dL Normal 0.60-1.20 [facility] Comment on above: Performed By: #### C REAT, BUN, PP, CBC, LYTES ####[place] [address] [place] [id number] [facility] Creatinine Clr Calc Pharmacy 97.73 Normal [facility] Comment on above: Result Comment: PERF ORMED BY: [place] [address] PATHOLOGIST ICE CRUSHER JANA OLMEDO M.D. Performed By: #### C REAT, BUN, PP, CBC, LYTES ####[place] [address] [address] GFR/1.73 sq M.predicted MDRD (S/P/Bld) [Vol rate/Area] mL/min/{1.73_m2} Normal [facility] Comment on above: Performed By: #### C REAT, BUN, PP, CBC, LYTES ####[address] ECG 12 lead ECGon 08-21-2024 ECG 12 lead ECG [facility] [place] [address] [place] [address] Electrocardiograph Report Signed Patient: Jose Alberto Saleem MR#: [id number] 571 : 1965 Acct:[id number] Age/Sex: 59 / F ADM Date: 08/20/24 Loc: Room: [address] [place] [address] Type: DIS IN Attending Dr: Kaiser Quijano [...] abnormality Abnormal ECG Confirmed by Bella Stein ([id number]) on 08/22/2024 11:33:52 PM Referred By: Bella Stein Electronically Signed By: Bella Stein Transcribed By: MUS Signed By Bella Stein MD 4 2333 Normal [facility] Electrolyteson 08-21-2024 Anion gap [Moles/Vol] 11.0 mmol/L Normal 6.0-15.0 [facility] Comment on above: Performed By: #### C REAT, BUN, PP, CBC, LYTES ####[address] Chloride [Moles/Vol] 105 mmol/L Normal 98-107 [facility] Comment on above: Performed By: #### C REAT, BUN, PP, CBC, LYTES ####[address] CO2 [Moles/Vol] 27.9 mmol/L Normal 21.0-31.0 [facility] Comment on above: Performed By: #### C REAT, BUN, PP, CBC, LYTES ####[address] Potassium [Moles/Vol] 3.9 mmol/L Normal 3.5-5.1 [facility] Comment on above: Performed By: #### C REAT, BUN, PP, CBC, LYTES ####[address] Sodium [Moles/Vol] 140 mmol/L Normal 136-145 [facility] Comment on above: Performed By: #### C REAT, BUN, PP, CBC, LYTES ####[place] [id number] [facility] NM lia perf SPECT rest stron 08-20-2024 NM lia perf SPECT rest str [facility] [address] [place] [address] [place] [address] Nuclear Medicine Report Signed Patient: Jose Alberto Saleem MR#: [id number] 571 : 1965 Acct:[id number] Age/Sex: 59 / F ADM Date: 08/18/24 Loc: Room: [address] [place] [address] Type: ADM INOo Attending Dr: Chucky Dunn [...] Bella Stein M.D.08/20/2024 3:56 PM Dictation Location: [facility] [facility] [address] Transcribed By: [facility] 08/20/24 1556 Dictated By: Bella Stein MD 08/20/24 1552 Signed By: 08/20/24 1556 Normal [facility] A1C with Estimated Average Griffin moss 08-19-2024 Glucose [Mass/Vol] 117 mg/dL Normal [facility] Comment on above: Result Comment: PERF ORMED BY: [facility] [address] [place] [address] PATHOLOGIST ICE CRUSHER JANA OLMEDO M.D. Performed By: #### A 1C [facility] eA, HS TROP ####[facility] [id number] [place] [address] [facility] HbA1c (Bld) [Mass fraction] 5.7 % High 4.3-5.6 [facility] Comment on above: Result Comment: Incr eased risk for diabetes: 5.7 - 6.4 diabetes: >6.4 glycemic control for adults with diabetes: <7.0 Performed By: #### A 1C [facility], TROP ####[facility] [id number] [place] [id number] [facility] ECG 12 lead ECGon 08-19-2024 ECG 12 lead ECG [facility] [place] [address] Electrocardiograph Report Signed Patient: Jose Alberto Saleem MR#: [id number] 571 : 1965 Acct:[id number] Age/Sex: 59 / F ADM Date: 08/18/24 Loc: 3T Room: [address] [place] [address] Type: ADM INOo Attending Dr: Chucky Dunn [...] abnormality Abnormal ECG Confirmed by Bella Stein ([id number]) on 08/21/2024 12:00:39 AM Referred By: Bella Stein Electronically Signed By: Bella Stein Transcribed By: MUS Signed By Bella Stein MD 4 0000 Normal [facility] ECG 12 lead ECG [facility] [place] [address] Electrocardiograph Report Signed Patient: Jose Alberto Saleem MR#: [id number] 571 : 1965 Acct:[id number] Age/Sex: 59 / F ADM Date: 08/18/24 Loc: Room: [address] [place] [address] Type: ADM INOo Attending Dr: Chucky Dunn [...] rhythm Leftward axis Confirmed by Torsten Monreal ([id number]) on 08/20/2024 11:52:24 PM Referred By: Bella Stein Electronically Signed By: Torsten Monreal Transcribed By: MUS Signed By Torsten Monreal MD 08/20/24 2352 Normal [facility] Troponin I High Sensitivityo n 08-19-2024 Troponin I High Sensitivity 4.6 pg/mL Normal 0.0-15.0 [facility] Comment on above: Result Comment: PERF ORMED BY: [place] [address] PATHOLOGIST ICE CRUSHER JANA OLMEDO M.D. Performed By: #### A 1C [facility], [facility] ####[address] X-ray reportOrdered By: Anna Wick on 08-19-2024 Study report [facility] [address] [place] [address] [place] [address] XRay Report Signed Patient: Jose Alberto Saleem MR#: [id number] : 1965 Acct:[id number] Age/Sex: 59 / F ADM Date: 4 Loc: Room: [address] [place] [address] Type: ADM INOo Attending Dr: Donis Arroyo DO Copies to: MD Donis Castle DO~ Ordering Provider: Lynnette Chapman MD Date [...] Thelma Wick M.D.08/19/2024 12:10 AM Dictation Location: [place] [address] Transcribed By: [facility] 08/19/24 001 Dictated By: Thelma Wick MD 08/18/242210 Signed By: 08/19/249 [facility] Work Phone: Alanine aminotransferase [En zymatic activity/volume] in Serum or PlasmaOrdered By: Lynnette Chapman on 08-18-2024 ALT [Catalytic activity/Vol] Alanine aminotransferase [Enzymatic activity/volume] in Serum or Plasma 7-52 [facility] Albumin [Mass/volume] in Ser um or Plasma by Bromocresol green (BCG) dye binding methoOrdered By: Lynnette Chapman on 08-18-2024 Albumin BCG dye [Mass/Vol] Albumin [Mass/volume] in Serum or Plasma by Bromocresol green (BCG) dye binding metho 3.5-5.7 [facility] Alkaline phosphatase [Enzyma tic activity/volume] in Serum or PlasmaOrdered By: Lynnette Chapman on 08-18-2024 ALP [Catalytic activity/Vol] Alkaline phosphatase [Enzymatic activity/volume] in Serum or Plasma 34-104 [facility] Aspartate aminotransferase [ Enzymatic activity/volume] in Serum or PlasmaOrdered By: Lynnette Chapman on 08-18-2024 AST [Catalytic activity/Vol] Aspartate aminotransferase [Enzymatic activity/volume] in Serum or Plasma 13-39 [facility] B-Type Natriuretic Peptideon 08-18-2024 Natriuretic peptide B (Bld) [Mass/Vol] 31.0 pg/mL Normal 5-100 [facility] Comment on above: Result Comment: PERF ORMED BY: [facility] [address] [place] [address] PATHOLOGIST ICE CRUSHER JANA OLMEDO M.D. Performed By: #### H S TROP, LIPASE, PT, BMP, HEPATIC, CK, CBC, BNP ####[facility] [id number] Basic Metabolic Panelon 11- Anion gap [Moles/Vol] 10.7 mmol/L Normal 6.0-15.0 [facility] Comment on above: Performed By: #### H S TROP, LIPASE, PT, BMP, HEPATIC, CK, CBC, BNP #### [address] Performed By: #### H S TROP, LIPASE, PT, BMP, HEPATIC, CK, CBC, BNP ####[address] Calcium [Mass/Vol] 10.1 mg/dL Normal 8.6-10.3 [facility] Comment on above: Performed By: #### H S TROP, LIPASE, PT, BMP, HEPATIC, CK, CBC, BNP #### [address] Performed By: #### H S TROP, LIPASE, PT, BMP, HEPATIC, CK, CBC, BNP ####[address] Chloride [Moles/Vol] 102 mmol/L Normal 98-107 [facility] Comment on above: Performed By: #### H S TROP, LIPASE, PT, BMP, HEPATIC, CK, CBC, BNP #### [address] Performed By: #### H S TROP, LIPASE, PT, BMP, HEPATIC, CK, CBC, BNP ####[address] CO2 [Moles/Vol] 28.4 mmol/L Normal 21.0-31.0 [facility] Comment on above: Performed By: #### H S TROP, LIPASE, PT, BMP, HEPATIC, CK, CBC, BNP #### [address] Performed By: #### H S TROP, LIPASE, PT, BMP, HEPATIC, CK, CBC, BNP ####[address] Creatinine [Mass/Vol] 0.62 mg/dL Normal 0.60-1.20 [facility] Comment on above: Performed By: #### H S TROP, LIPASE, PT, BMP, HEPATIC, CK, CBC, BNP #### [address] Performed By: #### H S TROP, LIPASE, PT, BMP, HEPATIC, CK, CBC, BNP ####[address] Creatinine Clr Calc Pharmacy 95.72 Normal [facility] Comment on above: Result Comment: PERF ORMED BY: [place] [address] PATHOLOGIST ICE CRUSHER JANA OLMEDO M.D. Performed By: #### H S TROP, LIPASE, PT, BMP, HEPATIC, CK, CBC, BNP #### [address] Performed By: #### H S TROP, LIPASE, PT, BMP, HEPATIC, CK, CBC, BNP ####[address] GFR/1.73 sq M.predicted MDRD (S/P/Bld) [Vol rate/Area] mL/min/{1.73_m2} Normal [facility] Comment on above: Performed By: #### H S TROP, LIPASE, PT, BMP, HEPATIC, CK, CBC, BNP #### [address] Performed By: #### H S TROP, LIPASE, PT, BMP, HEPATIC, CK, CBC, BNP ####[address] Glucose [Mass/Vol] 94 mg/dL Normal 70-100 [facility] Comment on above: Result Comment: [place] om Glucose Reference Range is dependent on time and content of last meal. Glucose of more than 200 mg/dL in a nonstressed, ambulatory subject supports the diagnosis of Diabetes Mellitus. ADA recommended reference range Performed By: #### H S TROP, LIPASE, PT, BMP, HEPATIC, CK, CBC, BNP #### [address] Performed By: #### H S TROP, LIPASE, PT, BMP, HEPATIC, CK, CBC, BNP ####[address] Potassium [Moles/Vol] 4.1 mmol/L Normal 3.5-5.1 [facility] Comment on above: Performed By: #### H S TROP, LIPASE, PT, BMP, HEPATIC, CK, CBC, BNP #### [address] Performed By: #### H S TROP, LIPASE, PT, BMP, HEPATIC, CK, CBC, BNP ####[address] Sodium [Moles/Vol] 137 mmol/L Normal 136-145 [facility] Comment on above: Performed By: #### H S TROP, LIPASE, PT, BMP, HEPATIC, CK, CBC, BNP #### [address] Performed By: #### H S TROP, LIPASE, PT, BMP, HEPATIC, CK, CBC, BNP ####[address] Urea nitrogen [Mass/Vol] 22 mg/dL Normal 7-25 [facility] Comment on above: Performed By: #### H S TROP, LIPASE, PT, BMP, HEPATIC, CK, CBC, BNP #### [address] Performed By: #### H S TROP, LIPASE, PT, BMP, HEPATIC, CK, CBC, BNP ####[address] Basophils Auto (Bld) [#/Vol] Ordered By: Lynnette Chapman on 08-18-2024 Basophils (Bld) [#/Vol] Automated basophil count 0.0-0.2 [facility] Basophils/100 WBC Auto (Bld) Ordered By: Lynnette Chapman on 08-18-2024 Basophils/100 WBC (Bld) Automated basophil % . [facility] Bilirubin.direct [Mass/volum e] in Serum or PlasmaOrdered By: Lynnette Chapman on 08-18-2024 Bilirubin.direct [Mass/Vol] Bilirubin.direct [Mass/volume] in Serum or Plasma 0.03-0.18 [facility] Bilirubin.total [Mass/volume ] in Serum or PlasmaOrdered By: Lynnette Chapman on 08-18-2024 Bilirubin [Mass/Vol] Bilirubin.total [Mass/volume] in Serum or Plasma 0.3-1.0 [facility] Calcium [Mass/volume] in Ser um or PlasmaOrdered By: Lynnette Chapman on 08-18-2024 Calcium [Mass/Vol] Calcium [Mass/volume ] in Serum or Plasma 8.6-10.3 [facility] Carbon dioxide, total [Moles /volume] in Serum or PlasmaOrdered By: Lynnette Chapman on 08-18-2024 CO2 [Moles/Vol] Carbon dioxide, tota l [Moles/volume] in Serum or Plasma 21.0-31.0 [facility] Chloride [Moles/volume] in S nina or PlasmaOrdered By: Lynnette Chapman on 08-18-2024 Chloride [Moles/Vol] Chloride [Moles/vol ume] in Serum or Plasma 98-107 [facility] Complete Blood Count Auto Di ffon 08-18-2024 Basophils (Bld) [#/Vol] 0.0 10*3/uL Normal 0.0-0.2 [facility] Comment on above: Result Comment: PERF ORMED BY: [address] [place] [address] PATHOLOGIST ICE CRUSHER JANA OLMEDO M.D. Performed By: #### H S TROP, LIPASE, PT, BMP, HEPATIC, CK, CBC, BNP #### [address] Basophils/100 WBC (Bld) 0.7 % Normal . [facility] Comment on above: Performed By: #### H S TROP, LIPASE, PT, BMP, HEPATIC, CK, CBC, BNP #### [facility] [address] [place] [address] Eosinophils (Bld) [#/Vol] 0.2 10*3/uL Normal 0.0-0.45 [facility] Comment on above: Performed By: #### H S TROP, LIPASE, PT, BMP, HEPATIC, CK, CBC, BNP #### [address] Eosinophils/100 WBC (Bld) 3.5 % Normal . [facility] Comment on above: Performed By: #### H S TROP, LIPASE, PT, BMP, HEPATIC, CK, CBC, BNP #### [address] Erythrocyte distribution width (RBC) [Ratio] 12.6 % Normal 11.9-15.3 [facility] Comment on above: Performed By: #### H S TROP, LIPASE, PT, BMP, HEPATIC, CK, CBC, BNP #### [address] Hematocrit (Bld) [Volume fraction] 43.7 % Normal 34.0-46.4 [facility] Comment on above: Performed By: #### H S TROP, LIPASE, PT, BMP, HEPATIC, CK, CBC, BNP #### [address] Hemoglobin (Bld) [Mass/Vol] 15.1 g/dL Normal 11.8-15.4 [facility] Comment on above: Performed By: #### H S TROP, LIPASE, PT, BMP, HEPATIC, CK, CBC, BNP #### [address] Lymphocytes (Bld) [#/Vol] 2.2 10*3/uL Normal 1.00-4.8 [facility] Comment on above: Performed By: #### H S TROP, LIPASE, PT, BMP, HEPATIC, CK, CBC, BNP #### [address] Lymphocytes/100 WBC (Bld) 36.5 % Normal . [facility] Comment on above: Performed By: #### H S TROP, LIPASE, PT, BMP, HEPATIC, CK, CBC, BNP #### [address] MCH (RBC) [Entitic mass] 30.7 pg Normal 24.7-34.3 [facility] Comment on above: Performed By: #### H S TROP, LIPASE, PT, BMP, HEPATIC, CK, CBC, BNP #### [address] MCV (RBC) [Entitic vol] 88.8 fL Normal 80-100 [facility] Comment on above: Performed By: #### H S TROP, LIPASE, PT, BMP, HEPATIC, CK, CBC, BNP #### [address] Mean Corpuscular HGB Conc 34.5 g/dL Normal 32.0-35.0 [facility] Comment on above: Performed By: #### H S TROP, LIPASE, PT, BMP, HEPATIC, CK, CBC, BNP #### [address] Monocytes (Bld) [#/Vol] 0.6 10*3/uL Normal 0.0-0.8 [facility] Comment on above: Performed By: #### H S TROP, LIPASE, PT, BMP, HEPATIC, CK, CBC, BNP #### [address] Monocytes/100 WBC (Bld) 16.97 % Normal 0.00-20.00 [facility] Comment on above: Performed By: #### H S TROP, LIPASE, PT, BMP, HEPATIC, CK, CBC, BNP #### [address] Monocytes/100 WBC (Bld) 10.5 % Normal . [facility] Comment on above: Performed By: #### H S TROP, LIPASE, PT, BMP, HEPATIC, CK, CBC, BNP #### [address] Neutrophils (Bld) [#/Vol] 3.0 10*3/uL Normal 1.8-7.7 [facility] Comment on above: Performed By: #### H S TROP, LIPASE, PT, BMP, HEPATIC, CK, CBC, BNP #### [address] Neutrophils/100 WBC (Bld) 48.8 % Normal . [facility] Comment on above: Performed By: #### H S TROP, LIPASE, PT, BMP, HEPATIC, CK, CBC, BNP #### [address] NRBC% 0.1 /100{WBC} Normal 0-0.5 [facility] Comment on above: Performed By: #### H S TROP, LIPASE, PT, BMP, HEPATIC, CK, CBC, BNP #### [address] Platelet mean volume (Bld) [Entitic vol] 7.9 fL Normal 6.3-10.7 [facility] Comment on above: Performed By: #### H S TROP, LIPASE, PT, BMP, HEPATIC, CK, CBC, BNP #### [address] Platelets (Bld) [#/Vol] 204 10*3/uL Normal 150-450 [facility] Comment on above: Performed By: #### H S TROP, LIPASE, PT, BMP, HEPATIC, CK, CBC, BNP #### [address] RBC (Bld) [#/Vol] 4.92 10*6/uL Normal 3.60-5.00 [facility] Comment on above: Performed By: #### H S TROP, LIPASE, PT, BMP, HEPATIC, CK, CBC, BNP #### [address] WBC (Bld) [#/Vol] 6.1 10*3/uL Normal 3.8-11.6 [facility] Comment on above: Performed By: #### H S TROP, LIPASE, PT, BMP, HEPATIC, CK, CBC, BNP #### [address] [place] [address] [place] Creatine Kinaseon 08-18-2024 CK [Catalytic activity/Vol] 53 U/L Normal 30 [facility] Comment on above: Performed By: #### H S TROP, LIPASE, PT, BMP, HEPATIC, CK, CBC, BNP ####[facility] [address] [place] [address] [facility] Creatine kinase [Enzymatic a ctivity/volume] in Serum or PlasmaOrdered By: Lynnette Chapman on 08-18-2024 CK [Catalytic activity/Vol] Creatine kinase [Enzymatic activity/volume] in Serum or Plasma 30- [facility] Creatinine [Mass/volume] in Serum or PlasmaOrdered By: Lynnette Chapman on 08-18-2024 Creatinine [Mass/Vol] Creatinine [Mass/v olume] in Serum or Plasma 0.60-1.20 [facility] ECG 12 lead ECGon 08-18-2024 ECG 12 lead ECG [facility] [address] [place] [address] Electrocardiograph Report Signed Patient: Jose Alberto Saleem MR#: [id number] : 1965 Acct:[id number] Age/Sex: 59 / F ADM Date: 08/18/24 Loc: ER Room: Type: [facility] ER Attending Dr: Ordering Provider: [...] wave abnormality Confirmed by Lynnette Chapman MD ([id number]) on 08/18/2024 11:22:40 PM Referred By: Electronically Signed By: Lynnette Chapman MD Transcribed By: MUS Signed By Lynnette Chapman MD 08/01 05/24 421 Normal [facility] Eosinophils Auto (Bld) [#/Vo l]Ordered By: Lynnette Chapman on 08-18-2024 Eosinophils (Bld) [#/Vol] Automated eosinophil count 0.0-0.45 [facility] Eosinophils/100 WBC Auto (Bl d)Ordered By: Lynnette Chapman on 08-18-2024 Eosinophils/100 WBC (Bld) Automated eosinophil % . [facility] Erythrocyte distribution wid th Auto (RBC) [Ratio]Ordered By: Lynnette Chapman on 08-18-2024 Erythrocyte distribution width (RBC) [Ratio] Erythrocyte distribution width [Ratio] by Automated count 11.9-15.3 [facility] Globulin Calc (S) [Mass/Vol] Ordered By: Lynnette Chapman on 08-18-2024 Globulin (S) [Mass/Vol] Serum globulin measurement by calculation (mass/volume) [facility] Glucose [Mass/volume] in Ser um or PlasmaOrdered By: Lynnette Chapman on 08-18-2024 Glucose [Mass/Vol] Glucose [Mass/volume ] in Serum or Plasma 70-100 [facility] Comment on above: ADA recommended refe rence rangeRandom Glucose Reference Range is dependent on time and content of last meal. Glucose of more than 200 mg/dL in a nonstressed, ambulatory subject supports the diagnosis of Diabetes Mellitus. Hematocrit Auto (Bld) [Volum e fraction]Ordered By: Lynnette Chapman on 08-18-2024 Hematocrit (Bld) [Volume fraction] Hematocrit [Volume Fraction] of Blood by Automated count 34.0-46.4 [facility] Hemoglobin [Mass/volume] in BloodOrdered By: Lynnette Chapman on 08-18-2024 Hemoglobin (Bld) [Mass/Vol] Hemoglobin [Mass/volume] in Blood 11.8-15.4 [facility] Hepatic Panelon 08-18-2024 Albumin [Mass/Vol] 4.3 g/dL Normal 3.5-5.7 [facility] Comment on above: Performed By: #### H S TROP, LIPASE, PT, BMP, HEPATIC, CK, CBC, BNP ####[facility] [address] [place] [id number] [facility] Albumin/Globulin [Mass ratio] 1.7 {ratio} Normal [facility] Comment on above: Performed By: #### H S TROP, LIPASE, PT, BMP, HEPATIC, CK, CBC, BNP ####[address] ALP [Catalytic activity/Vol] 89 U/L Normal 34-104 [facility] Comment on above: Performed By: #### H S TROP, LIPASE, PT, BMP, HEPATIC, CK, CBC, BNP ####[address] ALT [Catalytic activity/Vol] 42 U/L Normal 7-52 [facility] Comment on above: Performed By: #### H S TROP, LIPASE, PT, BMP, HEPATIC, CK, CBC, BNP ####[address] AST [Catalytic activity/Vol] 31 U/L Normal 13-39 [facility] Comment on above: Performed By: #### H S TROP, LIPASE, PT, BMP, HEPATIC, CK, CBC, BNP ####[address] Bilirubin [Mass/Vol] 0.4 mg/dL Normal 0.3-1.0 [facility] Comment on above: Performed By: #### H S TROP, LIPASE, PT, BMP, HEPATIC, CK, CBC, BNP ####[address] Bilirubin,Indirect 0.3 mg/dL Normal [facility] Comment on above: Performed By: #### H S TROP, LIPASE, PT, BMP, HEPATIC, CK, CBC, BNP ####[address] Bilirubin.indirect [Mass/Vol] 0.10 mg/dL Normal 0.03-0.18 [facility] Comment on above: Performed By: #### H S TROP, LIPASE, PT, BMP, HEPATIC, CK, CBC, BNP ####[address] Globulin (S) [Mass/Vol] 2.6 g/dL Normal [facility] Comment on above: Performed By: #### H S TROP, LIPASE, PT, BMP, HEPATIC, CK, CBC, BNP ####[facility] [place] [id number] [facility] Protein [Mass/Vol] 6.9 g/dL Normal 6.4-8.9 [facility] Comment on above: Performed By: #### H S TROP, LIPASE, PT, BMP, HEPATIC, CK, CBC, BNP ####[address] [place] [address] [facility] INR in Platelet poor plasma by Coagulation assayOrdered By: Lynnette Chapman on 08-18-2024 INR Coag (PPP) [Relative time] INR in Platelet poor plasma by Coagulation assay [facility] Comment on above: INR Therapeutic Rang [...] erythrocytes in Blood by Automated coun 3.8-11.6 [facility] Lipaseon 08-18-2024 Lipase [Catalytic activity/Vol] 110.0 U/L High 11.0-82.0 [facility] Comment on above: Result Comment: PERF ORMED BY: [facility] [address] [place] [id number] PATHOLOGIST ICE CRUSHER JANA OLMEDO M.D. Performed By: #### H S TROP, LIPASE, PT, BMP, HEPATIC, CK, CBC, BNP ####[place] [address] [place] [id number] [facility] Lipase [Enzymatic activity/v olume] in Serum or PlasmaOrdered By: Lynnette Chapman on 08-18-2024 Lipase [Catalytic activity/Vol] Lipase [Enzymatic activity/volume] in Serum or Plasma High 11.0-82.0 [facility] Lymphocytes Auto (Bld) [#/Vo l]Ordered By: Lynnette Chapman on 08-18-2024 Lymphocytes (Bld) [#/Vol] Lymphocytes [#/volume] in Blood by Automated count 1.00-4.8 [facility] Lymphocytes/100 WBC Auto (Bl d)Ordered By: Lynnette Chapman on 08-18-2024 Lymphocytes/100 WBC (Bld) Lymphocytes/100 leukocytes in Blood by Automated count . [facility] MCH Auto (RBC) [Entitic mass ]Ordered By: Lynnette Chapman on 08-18-2024 MCH (RBC) [Entitic mass] MCH [Entitic mass] by Automated count 24.7-34.3 [facility] MCHC Auto (RBC) [Mass/Vol]Or dered By: Lynnette Chapman on 08-18-2024 MCHC (RBC) [Mass/Vol] MCHC [Mass/volume] by Automated count 32.0-35.0 [facility] MCV Auto (RBC) [Entitic vol] Ordered By: Lynnette Chapman on 08-18-2024 MCV (RBC) [Entitic vol] MCV [Entitic volume] by Automated count 80-100 [facility] Monocyte distribution width [Entitic volume] in Blood by AutomatedOrdered By: Lynnette Chapman on 08-18-2024 Monocyte distribution width Auto (Bld) [Entitic vol] Monocyte distribution width [Entitic volume] in Blood by Automated 0.00-20.00 [facility] Monocytes Auto (Bld) [#/Vol] Ordered By: Lynnette Chapman on 08-18-2024 Monocytes (Bld) [#/Vol] Automated blood monocyte count 0.0-0.8 [facility] Monocytes/100 WBC Auto (Bld) Ordered By: Lynnette Chapman on 08-18-2024 Monocytes/100 WBC (Bld) Automated monocyte % . [facility] Natriuretic peptide B [Mass/ Vol]Ordered By: Lynnette Chapman on 08-18-2024 Natriuretic peptide B (Bld) [Mass/Vol] BNP ser/plas 5-100 [facility] Neutrophils Auto (Bld) [#/Vo l]Ordered By: Lynnette Chapman on 08-18-2024 Neutrophils (Bld) [#/Vol] Neutrophils [#/volume] in Blood by Automated count 1.8-7.7 [facility] Neutrophils/100 WBC Auto (Bl d)Ordered By: Lynnette Chapman on 08-18-2024 Neutrophils/100 WBC (Bld) Automated neutrophil % . [facility] No Panel InformationOrdered By: Lynnette Chapman on 08-18-2024 Estimated GFR (CKD-EPI) > 60.0 mL/Min [facility] Creatinine Clearance (Chem 95.72 [facility] Nucleated erythrocytes [Pres ence] in Blood by Automated countOrdered By: Lynnette Chapman on 08-18-2024 Nucleated RBC Auto Ql (Bld) Nucleated erythrocytes [Presence] in Blood by Automated count 0-0.5 [facility] Platelet mean volume Auto (B ld) [Entitic vol]Ordered By: Lynnette Chapman on 08-18-2024 Platelet mean volume (Bld) [Entitic vol] Platelet mean volume [Entitic volume] in Blood by Automated count 6.3-10.7 [facility] Platelets Auto (Bld) [#/Vol] Ordered By: Lynnette Chapman on 08-18-2024 Platelets (Bld) [#/Vol] Platelets [#/volume] in Blood by Automated count 150-450 [facility] Potassium [Moles/volume] in Serum or PlasmaOrdered By: Lynnette Chapman on 08-18-2024 Potassium [Moles/Vol] Potassium [Moles/v olume] in Serum or Plasma 3.5-5.1 [facility] Protein [Mass/volume] in Ser um or PlasmaOrdered By: Lynnette Chapman on 08-18-2024 Protein [Mass/Vol] Protein [Mass/volume ] in Serum or Plasma 6.4-8.9 [facility] Prothrombin Time INRon 08-18 INR Coag (PPP) [Relative time] 1.0 {INR} Normal [facility] Comment on above: Result [...] heart valves: 3 - 4.5 PERFORMED BY: [facility] [address] [facility] [place] [address] PATHOLOGIST ICE CRUSHER JANA OLMEDO M.D. Performed By: #### H S TROP, LIPASE, PT, BMP, HEPATIC, CK, CBC, BNP #### [facility] [address] PT Coag (PPP) [Time] 11.7 s Normal 9.0-12.9 [facility] Comment on above: Result Comment: A he matocrit value greater than 55% may lead to inaccurate results in coagulation testing. Patients having hematocrit values >55% require a special collection tube for coagulation studies. Please contact the laboratory at [phone] for redraw instructions. Performed By: #### H S TROP, LIPASE, PT, BMP, HEPATIC, CK, CBC, BNP #### [facility] [address] [place] [address] [facility] Prothrombin time (PT)Ordered By: Lynnette Chapman on 08-18-2024 PT Coag (PPP) [Time] Prothrombin time (PT) 9.0- 12.9 [facility] Comment on above: A hematocrit value g reater than 55% may lead to inaccurate results in coagulation testing. Patients having hematocrit values >55% require a special collection tube for coagulation studies. Please contact the laboratory at [phone] for redraw instructions. RBC Auto (Bld) [#/Vol]Ordere d By: Lynnette Chapman on 08-18-2024 RBC (Bld) [#/Vol] Erythrocytes [#/volu me] in Blood by Automated count 3.60-5.00 [facility] Serum or plasma albumin/glob ulin mass ratioOrdered By: Lynnette Chapman on 08-18-2024 Albumin/Globulin [Mass ratio] Serum or plasma albumin/globulin mass ratio [facility] Serum or plasma anion gap de terminationOrdered By: Lynnette Chapman on 08-18-2024 Anion gap [Moles/Vol] Serum or plasma an ion gap determination 6.0-15.0 [facility] Serum or plasma non-glucuron idated bilirubin measurement (mass/volume)Ordered By: Lynnette Chapman on 08-18-2024 Bilirubin.indirect [Mass/Vol] Serum or plasma non-glucuronidated bilirubin measurement (mass/volume) [facility] Sodium [Moles/volume] in Ser um or PlasmaOrdered By: Lynnette Chapman on 08-18-2024 Sodium [Moles/Vol] Sodium [Moles/volume ] in Serum or Plasma 136-145 [facility] Troponin I High Sensitivityo n 08-18-2024 Troponin I High Sensitivity 4.7 pg/mL Normal 0.0-15.0 [facility] Comment on above: Result Comment: PERF ORMED BY: [facility] [address] [place] [address] PATHOLOGIST ICE CRUSHER JANA OLMEDO M.D. Performed By: #### H S TROP ####[facility] [address] [place] [address] [facility] Troponin I High Sensitivity 5.1 pg/mL Normal 0.0-15.0 [facility] Comment on above: Result Comment: PERF ORMED BY: [facility] [address] [place] [id number] PATHOLOGIST ICE CRUSHER JANA OLMEDO M.D. Performed By: #### H S TROP, LIPASE, PT, BMP, HEPATIC, CK, CBC, BNP ####[facility] [id number] [place] [address] [facility] Troponin I.cardiac [Mass/vol ume] in Serum or Plasma by Detection limit <= 0.01 ng/Ordered By: Lynnette Chapman on 08-18-2024 Troponin I.cardiac DL <= 0.01 ng/mL [Mass/Vol] Troponin I.cardiac [Mass/volume] in Serum or Plasma by Detection limit <= 0.01 ng/ 0.0-15.0 [facility] Urea nitrogen [Mass/volume] in Serum or PlasmaOrdered By: Lynnette Chapman on 08-18-2024 Urea nitrogen [Mass/Vol] Urea nitrogen [Mass/volume] in Serum or Plasma 7-25 [facility] WBC Auto (Bld) [#/Vol]Ordere d By: Lynnette Chapman on 08-18-2024 WBC (Bld) [#/Vol] Leukocytes [#/volume ] in Blood by Automated count 3.8-11.6 [facility] XR chest 2V*on 08-18-2024 XR chest 2V* [facility] [address] [place] [address] XRay Report Signed Patient: Jose Alberto Saleem MR#: [id number] : 1965 Acct:[id number] Age/Sex: 59 / F ADM Date: 08/18/24 Loc: Room: [address] [place] [address] Type: ADM INOo Attending Dr: Donis Arroyo [...] Thelma Wick M.D.08/19/2024 12:10 AM Dictation Location: [place] [address] Transcribed By: [facility] 08/19/249 Dictated By: Thelma Wick MD 08/18/242210 Signed By: 08/19/24 001 Normal [facility] Reminderson 08-05-2024 Reminders Reminders From: Magdalena Longoria To: EU - Administrative; Sent: 08/05/2024 13:08:24 EST Show up: 03/01/2025 13:08:00 EDT Subject: 1 yr reminder Due Date/Time: 08/01/2025 13:08:00 EDT Reminder/Recall Patient needs scheduled with [facility] for a 1 yr f/u with [facility] Normal [facility] Urology Office/Clinic Noteon 08-05-2024 Urology Office/Clinic [...] Myrbetriq from 25mg to 50mg qd Ordered: 03145 Measure Post Void residual urine and/or bladder capacity by US- non-imaging E&M of Est. Patient Moderate 30-39 Min 38990 Urnls Dip Stick Auto w/o Microscopy POC 22194 2. Urethral pain (R39.89: Other symptoms and [...] day(s), # 90 tab(s), Refills(s) 3, Pharmacy: [facility] [id number], 160, cm, 08/05/24 11:29:00 EST, Height/Length Dosing, 74.2, kg, 08/05/24 11:29:00 EST, Weight Dosing tamsulosin, 0.4 mg = 1 cap(s), Oral, Daily, # 90 cap(s), Refills(s) 3, Pharmacy: [facility], 160, cm, 08/05/24 11:29:00 EST, Height/Length Dosing, 74.2, kg, 08/05/24 11:29:00 EST, Weight Dosing Follow-up With When Contact Information JENNIFER MARTINO PA-C, URL Within 1 year Additional Instructions: Patient Education Kidney Stones, [id number] Problem List/Past Medical History Ongoing Anticoagulated Feeling (more content not included)... [facility] Comment on above: Result Comment: Elec tronically [...] wk f/u. Appointment due by 06/19/2024 in [place] with [facility] PT SCHEDULED JUL 03, 2024 [facility] Urology Office/Clinic Noteon 04-10-2024 Urology Office/Clinic Note [...] E&M of Est. Patient High 40-54 Min 63886 Urnls Dip Stick Auto w/o Microscopy POC 58841 2. OAB (overactive bladder) (N32.81: Overactive bladder) [...] E&M of Est. Patient High 40-54 Min 08000 3. Urethral pain (R39.89: Other symptoms and [...] E&M of Est. Patient High 40-54 Min 74322 Orders: estradiol topical, See Instructions, 42.5 gm, Refill(s) 6, apply a pea-sized amount vaginally and around the urethra nightly x 3 weeks, then 3x per week thereafter, [facility] #[id number], 160, cm, 04/10/24 15:13:00 EDT, Height/Length Dosing, 74, kg, 04/10/24 15:13... mirabegron, 25 mg = 1 tab(s), Oral, Daily, do not fill both mirabegron AND vibegron. only fill whichever has lower co-pay., X 30 day(s), # 30 tab(s), Refills(s) 11, Pharmacy: [facility] #[id number], 160, cm, 04/10/24 15:13:00 EDT, Height/Length Dosing, 74, k... vibegron, 75 mg = 1 tab(s), Oral, Daily, X 30 day(s), # 30 tab(s), Refills(s) 11, Pharmacy: [facility] #[id number], 160, cm, 04/10/24 15:13:00 EDT, Height/Length Dosing, 74, kg, 04/10/24 15:13:00 EDT, Weight Dosing Total time spent reviewing previous notes/results/external documents, preparing the chart, conducting the encounter with the patient and family, ordering tests/medications, and documenting the encounter was 40 minutes. Follow-up With When Contact Information JENNIFER MARTINO PA-C, CARLOS Within 3 months [address] [facility] [place] [address] Additional Instructions: Patient Education Kidney Stones, [id number] Problem List/Past Medical History Ongoing Anticoagulated Feeling of incomplete b (more content not included)... Normal [facility] Comment on above: Result Comment: Elec tronically Signed By: JENNIFER MARTINO PA-C\.br\Date and Time Signed: 04/10/24 16:09 EDT Glucose Glucometer (BldC) [M ass/Vol]on 03-06-2024 Glucose [Mass/Vol] 79 mg/dL Normal 65-99 [facility] 36on 02-28-2024 36 Scheduled EGD/EUS 03/06/24 @1130, PTH, Dr. Cesar, PAT ph: 02/29/24 @1000, #[id number], Clinic appt 02/27/24 w/ Sherita. Normal [facility] [id number] 2023 ALPHA-1 ANTITRYPSIN 145 mg/dL Normal 90-200 [facility] Comment on above: Result Comment: To c onvert to umol/L, multiply mg/dL by 0.185 Performed By: [facility] [employer] [address] [place] [address] Contract Preparer: Sarwat Gorman MD, PhD CLIA Number: [id number] Performed By: #### L [id number] #### [facility] [address] [place] [address] ANAon 02-27-2024 CHAY TITER <1:40 Normal <=1:40 [facility] Comment on above: Result Comment: Test performed using BRIJESH IFA CHAY Hep-2 Test, a pre-standardized assay designed for the qualitative and semi-quantitative detection of antinuclear antibodies. Performed By: #### L [id number] #### [facility] ([facility]) [address] [place] [address] ANTI-SMOOTH MUSCLE ANTIBODY TITERon 02-27-2024 SMOOTH MUSCLE AB, IGG TITER <1:20 Normal <1:20 [facility] Comment on above: Result Comment: INTE RPRETIVE INFORMATION: Smooth Muscle Ab, IgG Titer Less than 1:20 ........ Negative - No antibody detected. 1:20 - 1:80 .......... Weak Positive - Suggest repeat in two to three weeks with fresh specimen. 1:160 or greater ...... Positive - Suggestive of autoimmune hepatitis or chronic active hepatitis. Performed By: [facility] [address] [place] [address] Contract Preparer: Sarwat Gorman MD, PhD CLIA Number: [id number] Performed By: #### L [id number] #### [facility] ([facility]) [address] [place] [id number] CBC WITH AUTO DIFFERENTIALon 02-27-2024 Basophils (Bld) [#/Vol] 0.01 10*3/uL Normal 0.00-0.20 [facility] Comment on above: Performed By: #### L [id number] #### [facility] ([facility]) [address] [place] [address] Basophils/100 WBC (Bld) 0.2 % Normal 0.0-1.0 [facility] Comment on above: Performed By: #### L [id number] #### [facility] ([facility]) [address] [place] [address] Eosinophils (Bld) [#/Vol] 0.17 10*3/uL Normal 0.00-0.50 [facility] Comment on above: Performed By: #### L [id number] #### [facility] ([facility]) [address] [place] [address] Eosinophils/100 WBC (Bld) 3.2 % Normal 0.0-6.0 [facility] Comment on above: Performed By: #### L [id number] #### [facility] ([facility]) [address] [place] [address] Erythrocyte distribution width (RBC) [Ratio] 12.6 % Normal 11.5-15.0 [facility] Comment on above: Performed By: #### L [id number] #### [facility] ([facility]) [address] [place] [address] ERYTHROCYTE MEAN CORPUSCULAR HEMOGLOBIN CONCENTRATION (G/DL) BY AUTOMATED 33.6 g/dL Normal 32.0-35.0 [facility] Comment on above: Performed By: #### L [id number] #### [facility] ([facility]) [address] [place] [address] Hematocrit (Bld) [Volume fraction] 44.0 % Normal 36.0-48.0 [facility] Comment on above: Performed By: #### L [id number] #### [facility] ([facility]) [address] [place] [address] Hemoglobin (Bld) [Mass/Vol] 14.8 g/dL Normal 12.0-15.0 [facility] Comment on above: Performed By: #### L [id number] #### [facility] ([facility]) [address] [place] [address] Immature granulocytes (Bld) [#/Vol] 0.01 10*3/uL Normal 0.00-0.20 [facility] Comment on above: Performed By: #### L [id number] #### [facility] ([facility]) [address] [place] [address] Immature granulocytes/100 WBC (Bld) 0.2 % Normal 0.0-1.0 [facility] Comment on above: Performed By: #### L [id number] #### [facility] ([facility]) [address] [place] [address] Lymphocytes (Bld) [#/Vol] 1.19 10*3/uL Low 1.20-4.00 [facility] Comment on above: Performed By: #### L [id number] #### [facility] ([facility]) [address] [place] [address] Lymphocytes/100 WBC (Bld) 22.3 % Normal 20.0-45.0 [facility] Comment on above: Performed By: #### L [id number] #### [facility] ([facility]) [address] [place] [address] MCH (RBC) [Entitic mass] 30.2 pg Normal 27.0-33.0 [facility] Comment on above: Performed By: #### L [id number] #### [facility] ([facility]) [address] [facility] [place] [address] MCV (RBC) [Entitic vol] 89.8 fL Normal 82.0-98.0 [facility] Comment on above: Performed By: #### L [id number] #### [facility] ([facility]) [address] [place] [address] Monocytes (Bld) [#/Vol] 0.53 10*3/uL Normal 0.10-1.00 [facility] Comment on above: Performed By: #### L [id number] #### [facility] ([facility]) [address] [place] [address] Monocytes/100 WBC (Bld) 9.9 % Normal 5.0-12.0 [facility] Comment on above: Performed By: #### L [id number] #### [facility] ([facility]) [address] [place] [address] Neutrophils (Bld) [#/Vol] 3.42 10*3/uL Normal 1.60-7.60 [facility] Comment on above: Performed By: #### L [id number] #### [facility] ([facility]) [address] [place] [address] Neutrophils/100 WBC (Bld) 64.2 % Normal 40.0-72.0 [facility] Comment on above: Performed By: #### L [id number] #### [facility] ([facility]) [address] [place] [address] NRBC (PER 100 WBCS) BY AUTOMATED COUNT 0.0 % Normal 0 [facility] Comment on above: Performed By: #### L [id number] #### [facility] ([facility]) [address] [place] [address] PLATELETS (10*3/UL) IN BLOOD AUTOMATED COUNT 198 10*3/uL Normal 150-400 [facility] Comment on above: Performed By: #### L [id number] #### [facility] ([facility]) [address] [place] [address] RBC (Bld) [#/Vol] 4.90 10*6/uL Normal 3.80-5.00 [facility] Comment on above: Performed By: #### L [id number] #### [facility] ([facility]) [address] [place] [address] WBC (Bld) [#/Vol] 5.33 10*3/uL Normal 4.00-10.60 [facility] Comment on above: Performed By: #### L [id number] #### [facility] ([facility]) [address] [place] [address] COMPREHENSIVE METABOLIC PANE Curtis 02-27-2024 Albumin [Mass/Vol] 4.4 g/dL Normal 3.5-5.7 [facility] Comment on above: Performed By: #### L [id number] #### [facility] ([facility]) [address] [place] [address] ALP [Catalytic activity/Vol] 84 U/L Normal 34-104 [facility] Comment on above: Performed By: #### L [id number] #### [facility] ([facility]) [address] [place] [address] ALT [Catalytic activity/Vol] 43 U/L Normal 7-52 [facility] Comment on above: Performed By: #### L [id number] #### [facility] ([facility]) [address] [place] [address] Anion gap [Moles/Vol] 11 mmol/L Normal 7-20 [facility] Comment on above: Performed By: #### L [id number] #### [facility] ([facility]) [address] [place] [address] AST [Catalytic activity/Vol] 33 U/L Normal 13-39 [facility] Comment on above: Performed By: #### L [id number] #### [facility] ([facility]) [address] [place] [address] Bilirubin [Mass/Vol] 0.4 mg/dL Normal 0.3-1.0 [facility] Comment on above: Performed By: #### L [id number] #### [facility] ([facility]) [address] [place] [address] Calcium [Mass/Vol] 9.9 mg/dL Normal 8.6-10.3 [facility] Comment on above: Performed By: #### L [id number] #### [facility] ([facility]) [address] [place] [address] Chloride [Moles/Vol] 102 mmol/L Normal 98-107 [facility] Comment on above: Performed By: #### L [id number] #### [facility] ([facility]) [address] [place] [address] CO2 [Moles/Vol] 29 mmol/L Normal 21-31 [facility] Comment on above: Performed By: #### L [id number] #### [facility] ([facility]) [address] [place] [address] Creatinine [Mass/Vol] 0.62 mg/dL Normal 0.60-1.20 [facility] Comment on above: Performed By: #### L [id number] #### [facility] ([facility]) [address] [place] [address] GLOMERULAR FILTRATION RATE ML/MIN/1.73 SQ M.PREDICTED 102.5 mL/min/1.73m*2 Normal >60.0 [facility] Comment on above: Result Comment: The [facility]???s estimated glomerular filtration rate (eGFR) will no [...] group of individuals. Performed By: #### L [id number] #### [facility] ([facility]) [address] [place] [address] Glucose [Mass/Vol] 90 mg/dL Normal 70-100 [facility] Comment on above: Performed By: #### L [id number] #### [facility] ([facility]) [address] [place] [address] Potassium [Moles/Vol] 4.2 mmol/L Normal 3.5-5.1 [facility] Comment on above: Performed By: #### L [id number] #### [facility] ([facility]) [address] [place] [address] Protein [Mass/Vol] 6.9 g/dL Normal 6.0-8.3 [facility] Comment on above: Performed By: #### L [id number] #### [facility] ([facility]) [address] [place] [address] Sodium [Moles/Vol] 138 mmol/L Normal 136-145 [facility] Comment on above: Performed By: #### L [id number] #### [facility] ([facility]) [address] [place] [address] Urea nitrogen [Mass/Vol] 27 mg/dL High 7-25 [facility] Comment on above: Performed By: #### L [id number] #### [facility] ([facility]) [address] [place] [address] UREA NITROGEN/CREATININE (MASS RATIO) IN SER/PLAS 43.5 Normal [facility] Comment on above: Performed By: #### L [id number] #### [facility] ([facility]) [address] [place] [address] COPPER, SERUMon 02-27-2024 COPPER 125.0 ug/dL Normal 80.0-155.0 [facility] Comment on above: Result Comment: INTE RPRETIVE [...] developed and its performance characteristics determined by [facility] It has not been cleared or approved by the US Food and Drug Administration. This test was performed in a CLIA certified laboratory and is intended for clinical purposes. Performed By: [facility] [address] [place] [address] Contract Preparer: Sarwat Gorman MD, PhD CLIA Number: [id number] Performed By: #### L [id number] #### [facility] ([facility]) [address] [place] [address] FERRITINon 02-27-2024 FERRITIN (NG/ML) IN SER/PLAS 32.0 ng/mL Normal 11.0-307.0 [facility] Comment on above: Performed By: #### L [id number] #### [facility] ([facility]) [address] [place] [address] FOLATEon 02-27-2024 FOLATE (NG/ML) IN SER/PLAS 39.0 ng/mL Normal 6.6-1000 [facility] Comment on above: Performed By: #### L [id number] #### [facility] ([facility]) [address] [place] [address] HEMOGLOBIN A1Con 02-27-2024 Glucose [Mass/Vol] 100 mg/dL Normal [facility] Comment on above: Performed By: #### L [id number] #### [facility] ([facility]) [address] [place] [address] HbA1c (Bld) [Mass fraction] 5.1 % Normal 4.0-6.0 [facility] Comment on above: Performed By: #### L [id number] #### [facility] ([facility]) [address] [place] [address] HEPATITIS PANEL, ACUTEon HEPATITIS A VIRUS IGM AB PRESENCE IN SER/PLAS Non-Reactive Normal Nonreactive [facility] Comment on above: Performed By: #### L [id number] #### [facility] ([facility]) [address] [place] [address] HEPATITIS B VIRUS CORE AB (PRESENCE) IN SER/PLAS BY IMM Non-Reactive Normal Nonreactive [facility] Comment on above: Performed By: #### L [id number] #### [facility] ([facility]) [address] [place] [address] HEPATITIS B VIRUS SURFACE AG PRESENCE IN SERUM Non-Reactive Normal Nonreactive [facility] Comment on above: Performed By: #### L [id number] #### [facility] ([facility]) [address] [place] [address] HEPATITIS C VIRUS AB PRESENCE IN SERUM Non-Reactive Normal Nonreactive [facility] Comment on above: Performed By: #### L [id number] #### [facility] ([facility]) [address] [place] [address] IGAon 02-27-2024 Magnesium [Mass/Vol] 108 mg/dL Normal 60-413 [facility] Comment on above: Performed By: #### L [id number] #### [facility] ([facility]) [address] [place] [address] IGG 1, 2, 3, AND 4on 024 IgG subclass 1 (S) [Mass/Vol] 293 mg/dL Normal 240-1118 [facility] Comment on above: Result Comment: REFE RENCE INTERVAL: Immunoglobulin G Subclass 1 The total IgG (mg/dL) can be derived from the sum of the subclass IgG1, IgG2, IgG3, and IgG4 values. However, a confirmatory and more precise total IgG is available by the turbidimetric method of quantitation for total IgG. Refer to test Immunoglobulin G, Serum ([id number]). Access complete set of age- and/or gender-specific reference intervals for this test in the [facility] Directory ([employer]). Performed By: #### L [id number] #### [facility] ([facility]) [address] [place] [address] IgG subclass 2 (S) [Mass/Vol] 160 mg/dL Normal 124-549 [facility] Comment on above: Result Comment: REFE RENCE INTERVAL: Immunoglobulin G Subclass 2 Access complete set of age- and/or gender-specific reference intervals for this test in the [facility] ([employer]). Performed By: #### L [id number] #### [facility] ([facility]) [address] [place] [address] IgG subclass 3 (S) [Mass/Vol] 32 mg/dL Normal 21-134 [facility] Comment on above: Result Comment: REFE RENCE INTERVAL: Immunoglobulin G Subclass 3 Access complete set of age- and/or gender-specific reference intervals for this test in the [employer] [facility] Directory ([employer]). Performed By: #### L [id number] #### [facility] ([facility]) [address] [place] [address] IgG subclass 4 (S) [Mass/Vol] 21 mg/dL Normal 1-123 [facility] Comment on above: Result Comment: REFE RENCE INTERVAL: Immunoglobulin G Subclass 4 Access complete set of age- and/or gender-specific reference intervals for this test in the [facility] ([employer]). Performed By: [facility] [address] [place] [address] Contract Preparer: Sarwat Gorman MD, PhD CLIA Number: [id number] Performed By: #### L [id number] #### [facility] ([facility]) [address] [place] [address] IRON AND TIBCon 02-27-2024 IRON (UG/DL) IN SER/PLAS 56 ug/dL Normal 50-212 [facility] Comment on above: Performed By: #### L [id number] #### [facility] ([facility]) [address] [place] [address] IRON BINDING CAPACITY (UG/DL) IN SER/PLAS 364 ug/dL Normal 250-450 [facility] Comment on above: Performed By: #### L [id number] #### [facility] ([facility]) [address] [place] [address] IRON BINDING CAPACITY.UNSATURATED (UG/DL) IN SER/PLAS 308.0 ug/dL Normal 155.0-355.0 [facility] Comment on above: Performed By: #### L [id number] #### [facility] ([facility]) [address] [place] [address] IRON SATURATION (%) IN SER/PLAS 15 % Low 20-50 [facility] Comment on above: Performed By: #### L [id number] #### [facility] ([facility]) [address] [place] [address] LIPID PANELon 02-27-2024 CHOL/HDL 2.9 mg/dL Normal [facility] Comment on above: Performed By: #### L [id number] #### [facility] ([facility]) [address] [place] [address] Cholesterol [Mass/Vol] 111 mg/dL Low 120-200 [facility] Comment on above: Performed By: #### L [id number] #### [facility] ([facility]) [address] [place] [address] Magnesium [Mass/Vol] 144 mg/dL Normal 40-149 [facility] Comment on above: Result Comment: TRIG LYCERIDE REFERENCE RANGE: 20 YEARS AND OLDER CARDIOVASCULAR RISK LESS THAN 150 mg/dL LOW RISK 150 TO 199 mg/dL BORDERLINE RISK 200 mg/dL AND GREATER HIGH RISK Performed By: #### L [id number] #### [facility] ([facility]) [address] [place] [address] Magnesium [Mass/Vol] 44 mg/dL Normal 0-160 [facility] Comment on above: Performed By: #### L [id number] #### [facility] ([facility]) [address] [place] [address] Magnesium [Mass/Vol] 38 mg/dL Normal 23-92 [facility] Comment on above: Performed By: #### L [id number] #### [facility] ([facility]) [address] [place] [address] NON HDL CHOL. (LDL+VLDL) 73 Normal [facility] Comment on above: Performed By: #### L [id number] #### [facility] ([facility]) [address] [place] [address] TOTAL VLDL-C 29 mg/dL Normal 0-40 [facility] Comment on above: Performed By: #### L [id number] #### [facility] ([facility]) [address] [place] [address] LIVER FIBROSIS CHRONIC VIRAL HEPATITISon 02-27-2024 [id number] , FIBROMETER 328 mg/dL High 131-293 [facility] Comment on above: Performed By: #### L [id number] #### [facility] ([facility]) [address] [place] [address] ALT [Catalytic activity/Vol] 57 U/L High 5-40 [facility] Comment on above: Performed By: #### L [id number] #### [facility] ([facility]) [address] [place] [address] Amylase [Catalytic activity/Vol] 18 U/L Normal 7-33 [facility] Comment on above: Performed By: #### L [id number] #### [facility] ([facility]) [address] [place] [address] AST [Catalytic activity/Vol] 41 U/L High 9-40 [facility] Comment on above: Performed By: #### L [id number] #### [facility] ([facility]) [address] [place] [address] CIRRHOMETER PATIENT SCORE 0.08 Normal [facility] Comment on above: Performed By: #### L [id number] #### [facility] ([facility]) [address] [place] [address] EER FIBROMETER REPORT See Note Normal [facility] Comment on above: Result Comment: Auth orized individuals can access the [facility] Enhanced Report using the following link: [email or web address] Performed By: #### L [id number] #### [facility] ([facility]) [address] [place] [address] FIBROMETER INTERPRETATION See Report Normal [facility] Comment on above: Result Comment: [17] [13] INTERPRETIVE INFORMATION: Fibrometer Interpretation Calculations for the final report are based on accurate data for age, gender, and platelet count. If any of this information needs to be corrected, please contact [facility] Services to request a recalculation. Client [...] developed and its performance characteristics determined by [facility] It has not been cleared or approved by the [place] Food and Drug Administration. This test was performed in a CLIA certified laboratory and is intended for clinical purposes. Performed By: [facility] [address] [place] [address] Contract Preparer: Sarwat Gorman MD, PhD CLIA Number: [id number] Performed By: #### L [id number] #### [facility] ([facility]) [address] [place] [address] FIBROMETER PATIENT SCORE 0.62 Normal [facility] Comment on above: Performed By: #### L [id number] #### [facility] ([facility]) [address] [place] [address] FIBROMETER PLATELET COUNT 198 k/uL Normal [facility] Comment on above: Performed By: #### L [id number] #### [facility] ([facility]) [address] [place] [address] FIBROMETER PROTHROMBIN INDEX 81 % Low 90-120 [facility] Comment on above: Performed By: #### L [id number] #### [facility] ([facility]) [address] [place] [address] FIBROSIS METAVIR CLASSIFICATION F2[F1-F3] [facility] Comment on above: Result Comment: INTE [...] possible Performed By: #### L [id number] #### [facility] ([facility]) [address] [place] [address] INFLAMETER METAVIR CLASSIFICATION A1/A2 [facility] Comment on above: Result Comment: INTE RPRETIVE INFORMATION: InflaMeter Metavir Classification [employer]eter (activity score) comments A0/A1 Equal probability between A0 and A1 A1/A2 Equal probability between A1 and A2 A2/A3 Equal probability between A2 and A3 Performed By: #### L [id number] #### [facility] ([facility]) [address] [place] [address] INFLAMETER PATIENT SCORE 0.62 [facility] Comment on above: Performed By: #### L [id number] #### [facility] ([facility]) [address] [place] [address] Urea nitrogen [Mass/Vol] 28 mg/dL High 7-20 [facility] Comment on above: Performed By: #### L [id number] #### [facility] ([facility]) [address] [place] [address] Labon 02-27-2024 Lab [id number] Diana Saleem ttrene 1965 F Date Provider Department Center 02/27/2024 [id number] MP LAB RESOURCE MP DRAW [facility] Family History Problem Relation Age of Onset Hyperlipidemia Mother Hyperlipidemia Father Hyperlipidemia Brother Heart attack Brother Family Status - Relation Status Age at Mother Father Brother Brother Normal [facility] MITOCHONDRIAL ANTIBODIES, M2 on 02-27-2024 MITOCHONDRIAL M2 ANTIBODY 7.2 Units Normal 0.0-24.9 [facility] Comment on above: Result Comment: REFE RENCE [...] does not rule out PBC. Performed By: [facility] [address] [place] [address] Contract Preparer: Sarwat Gorman MD, PhD CLIA Number: [id number] Performed By: #### L [id number] #### [facility] ([facility]) [address] [place] [address] Office Visiton 02-27-2024 Follow-up visit [id number] SaleemDiana ttrene 1965 F Date Provider Department Center 02/27/2024 DANIELLE GARCIA MP GI [facility] Family History Problem Relation Age of Onset Hyperlipidemia Mother Hyperlipidemia Father Hyperlipidemia Brother Heart attack Brother Family Status - Relation Status Age at Mother Father Brother Brother Level of Service:46013 [place] OFFICE/OUTPATIENT NEW MODERATE MDM 45 MINUTES (GC) Reason for Visit and Comments: New Patient [632] Pancreatitis [613104] Normal [facility] PROTIME-INRon 02-27-2024 INR IN PPP BY COAGULATION ASSAY 1.08 Normal 0.90-1.10 [facility] Comment on above: Result Comment: ACC P RECOMMENDED INR FOR WARFARIN THERAPY CONDITION [...] RANGE. CHEST 1995;108:[id number]. Performed By: #### L [id number] #### [facility] ([facility]) [address] [place] [address] PROTHROMBIN TIME (PT) IN PPP BY COAGULATION ASSAY 14.0 Seconds Normal 12.3-14.8 [facility] Comment on above: Performed By: #### L [id number] #### [facility]) [address] [place] [address] TISSUE TRANSGLUTAMINASE, IGA on 02-27-2024 TISSUE TRANSGLUTAMINASE, IGA <1.02 Normal 0.00-4.99 [facility] Comment on above: Result Comment: INTE RPRETIVE [...] indicate a response to therapy. Performed By: [place] [address] Contract Preparer: Sarwat Gorman MD, PhD CLIA Number: [id number] Performed By: #### L [id number] #### [facility] ([facility]) [address] [place] [address] TSH3 REFLEX TO FT4on 024 THYROTROPIN (MIU/L) IN SER/PLAS BY DETECTION LIMIT <= 0.05 MIU/L 2.02 mIU/L Normal 0.34-5.60 [facility] Comment on above: Performed By: #### L [id number] #### [facility] ([facility]) [address] [place] [address] VITAMIN B12on 02-27-2024 Cobalamin (Vitamin B12) [Mass/Vol] 1862 pg/mL High 180-914 [facility] Comment on above: Result Comment: REFE RENCE RANGES: 180-914 pg/mL Normal 145-179 pg/mL Indeterminate <145 pg/mL Deficient Performed By: #### L [id number] #### [facility] ([facility]) [address] [place] [address] VITAMIN D 25 HYDROXYon 02-26 CALCIDIOL (25 [place] VITAMIN D3) (NG/ML) IN SER/PLAS 62.1 ng/mL Normal 30.0-80.0 [facility] Comment on above: Result Comment: >80. 0 Toxicity possible Performed By: #### L [id number] #### [facility] ([facility]) [address] [place] [address] Orders Onlyon 02-12-2024 Orders Only [id number] Diana Saleem ttrene 1965 F Date Provider Department Center 02/12/2024 [id number], HISTORICAL MP [facility] No family history on file Normal [facility] Lab Reportson 01-23-2024 Lab Reports [id number]#1.00TIF F Normal [facility] Lab Reports [id number]#1.00TIF F [facility] [place] Lab Reportson 01-22-2024 Lab Reports [id number]#1.00TIF F [facility] [place] Lab Reports [id number]#1.00TIF F [facility] [place] Lab Reports [id number]#1.00TIF F [facility] [place] RAD - MISCon 01-22-2024 RAD - MISC [id number]#1.00TIF F [facility] [place] Surgical Pathology Reporton 06-18-2023 Surgical Pathology Report (NOTE) Path Number: [id number] -- Diagnosis -- ENDOMETRIAL CURETTINGS: -BENIGN ENDOMETRIAL POLYP. Amparo Kim Electronically Signed Out ag/06/21/2023 Clinical Information Pre-op Diagnosis: POSTMENOPAUSAL BLEEDING, INCLUSION CYST Operative Findings: ENDOMETRIAL CURETTINGS Operation Performed: DILATATION AND CURETTAGE HYSTEROSCOPY, REMOVAL OF INCLUSION CYST OF BILATERAL LABIA tm Source of Specimen A: ENDOMETRIAL CURETTINGS Gross Description JOSE ALBERTO STIVEN ENDOMETRIAL CURETTINGS Received in formalin are dark red fragments, 2.5 x 1.5 x 0.3 cm in aggregate. Entirely 1cs. tm LRP/tb1:06/19/2023 Microscopic Description Microscopic examination performed. Processing Lab: [facility] [address] [place] [address] Interpretation Performed at [address] SURGICAL PATHOLOGY CONSULTATION Patient Name: JOSE ALBERTO SALEEM Med Rec: [id number] [facility] ANATOMIC PATHOLOGY [address] [facility] [place], [place] [address] [facility] US NON OB TRANSVAGINALon US NON [...] Gaby Tello DO 06/05/23 Final result Normal [facility] Ceruloplasminon 12-12-2022 Ceruloplasmin 30.6 mg/dL 19.0-39.0 mg/dL [employer] Other Ferritinon 12-12-2022 Ferritin [Mass/Vol] 43.3313586 ng/mL Normal 11.0 -306.8 ng/mL [employer] [facility] Other Hepatitis A Antibody Totalon 12-12-2022 Hepatitis A Antibody Total Negative . [facility] [employer] Other Hepatitis B Surface Antibody on 12-12-2022 Hepatitis B Surface Antibody Non-Reactive Non Reactive [employer] Other Immunoglobulin Javi Immunoglobulin G 823 mg/dL 586-1602 mg/dL [employer] [facility] Other Liver-Kidney Microsomal Abon 12-12-2022 Liver-Kidney Microsomal Ab 1.1 0.0-20.0 [employer] Other Mitochondrial (M2) Antibodyo n 12-12-2022 Mitochondrial (M2) Antibody <20.0 0.0-20.0 [employer] [facility] Other Smooth Muscle Antibodyon Smooth Muscle Antibody 5 0-19 [employer] Other MR MRCPon 11-10-2022 MR [facility] [employer] [facility] [employer] Other [facility] [address] [facility] [address] [employer] Other MR MRCP ANNAMARIA Gomez [id number] [employer] Other MR MRCP MRI Report [employer] Other MR MRCP Signed [employer] Other MR MRCP Patient: Danika Saleem MR#: [id number] [employer] Other MR MRCP 571 [employer] Other MR MRCP : 1965 Acct:[id number] [employer] Other MR MRCP Age/Sex: 57 / F ADM Date: 11/10/22 [employer] Other MRCP Loc: Room: Type: [facility] [employer] Other MR MRCP Attending Dr: Evert salinas MD [employer] Other MRCP Copies to: Evert daigle MD [employer] Other MRCP Ordering Provider: Marleny Bruno MD [employer] [facility] Other MR MRCP Date of Service: 11/10/22 [employer] [facility] Other MR MRCP MR/MR MRCP: Abdominal pain;Common bile duct dilatation;Elevated liver en [employer] Other MR MRCP MRCP [employer] Other MR MRCP CLINICAL DATA: [place] hayley lipase. Abnormal outside abdominal CT [employer] Other MR MRCP COMPARISON: CT abdom en 10/16/2022 [employer] Other MR MRCP Multiecho imaging of the abdomen was performed along with radial imaging of the biliary tree. [employer] [facility] Other MR MRCP The gallbladder surgically absent. There is no significant intrahepatic biliary dilatation. The [employer] Other MR MRCP common duct is sligh tly prominent measuring up to 6 mm. It tapers toward the ampulla. No in [employer] Other MR MRCP traluminal filling defects are identified to suggest choledocholithiasis. The pancreatic duct is [place] [employer] Other MR MRCP also borderline prominent measuring 2 - 3 mm. No intrahepatic masses are identified. No pancreatic [facility] [employer] Other MR MRCP abnormalities are no hayley. The spleen and adrenal glands are within normal limits. There is no [employer] Other MR MRCP hydronephrosis. Ther e are right renal cysts. There is no aortic aneurysm. No adenopathy or [employer] Other MR MRCP ascites is seen. The re is no dilated bowel within the [id number]. [employer] Other MR MRCP M R/MR MRCP [facility] [employer] Other MR MRCP IMPRESSION: [employer] Other MR MRCP SLIGHTLY PROMINENT COMMON DUCT, WITHOUT CHOLEDOCHOLITHIASIS. THIS MAY RELATE TO PREVIOUS [employer] Other MR MRCP CHOLECYSTECTOMY. [facility] [employer] Other MR MRCP RIGHT RENAL CYSTS. [employer] Other MR MRCP NO OTHER SIGNIFICANT MRI FINDINGS. [employer] Other MR MRCP Impression dictated by: Thelma Wick M.D.11/10/2022 7:00 PM [employer] Other MR MRCP Dictation Location: [address] [employer] Other MR MRCP Transcribed By: BEN 11/10/22 1900 [employer] Other MR MRCP Dictated By: Thelma Wick MD 11/10/22 1850 [employer] Other MR MRCP Signed By: [employer] Other MR MRCP 11/10/22 1900 [employer] Other Albumin [Mass/volume] in Ser um or PlasmaOrdered By: Imad Asaad on 11-01-2022 Albumin [Mass/Vol] 4.0 g/dL 3.2-5.5 [facility] Direct bilirubin measurement Ordered By: Imad Asaad on 11-01-2022 Bilirubin.direct [Mass/Vol] 0.1 mg/dL 0.0-0.4 [facility] Globulin Calc (S) [Mass/Vol] Ordered By: Imad Asaad on 11-01-2022 Globulin (S) [Mass/Vol] 2.5 g/dL [facility] Hepatic Panelon 11-01-2022 Albumin [Mass/Vol] 4.844256 g/dL Normal 3.2-5.5 g/dL [employer] Other ALT [Catalytic activity/Vol] 94 U/L High 10-60 U/L [employer] Other Bilirubin [Mass/Vol] 0.3765372 mg/dL Normal 0.3- 1.2 mg/dL [employer] Other Bilirubin.indirect [Mass/Vol] 0.5318128 mg/dL Normal 0.0-0.4 mg/dL [employer] Other Protein [Mass/Vol] 6.172152 g/dL Normal 6.1-7.9 g/dL [employer] Other Hepatic Panel 0.5 mg/dL [employer] Other Hepatic Panel 2.5 g/dL [employer] Other Protein [Mass/volume] in Ser um or PlasmaOrdered By: Imad Asaad on 11-01-2022 Protein [Mass/Vol] 6.5 g/dL 6.1-7.9 [facility] Serum or plasma alanine li otransferase measurement without P-5'-P (enzymatic activiOrdered By: [facility] on 11-01-2022 ALT No additional P-5'-P [Catalytic activity/Vol] 94 U/L 10-60 [facility] Serum or plasma albumin/glob ulin mass ratioOrdered By: [facility] on 11-01-2022 Albumin/Globulin [Mass ratio] 1.6 {ratio} [facility] Serum or plasma alkaline monster sphatase measurement (enzymatic activity/volume)Ordered By: [facility] on 11-01-2022 ALP [Catalytic activity/Vol] 93 U/L 32-92 [facility] Serum or plasma aspartate am inotransferase measurement (enzymatic activity/volume)Ordered By: [facility] on 11-01-2022 AST [Catalytic activity/Vol] 66 U/L 10-42 [facility] Serum or plasma non-glucuron idated bilirubin measurement (mass/volume)Ordered By: [facility] on 11-01-2022 Bilirubin.indirect [Mass/Vol] 0.5 mg/dL [facility] Serum or plasma total biliru bin measurement (mass/volume)Ordered By: [facility] on 11-01-2022 Bilirubin [Mass/Vol] 0.6 mg/dL 0.3-1.[address] [facility] [address] ABDOMEN WO/W CONon 2022 CT [...] by: JAE WILSON Date: 2022-10-17 08:23 Normal [facility] AMMONIAon 10-09-2022 Ammonia (P) [Moles/Vol] 10 umol/L Critically low 11-32 [facility] Comment on above: Performed By: #### A MY #### [facility] Laboratory [address] [place] [address] Dr. Ayden Cam AMYLASEon 10-09-2022 Amylase [Catalytic activity/Vol] 144 U/L Critically high 25-115 [facility] Comment on above: Performed By: #### L IPA #### [facility] [address] [place] [address] Dr. Ayden Cam CBC AUTO DIFFon 10-09-2022 BASO # 0.0 103/ul Normal 0.0-0.1 [facility] Comment on above: Performed By: #### C BC #### [facility] [address] [place] [address] Dr. Ayden Cam Basophils/100 WBC (Bld) 0.2 % Normal 0.2-2.0 [facility] Comment on above: Performed By: #### C BC #### [facility] [address] [place] [address] Dr. Ayden Cam EO # 0.2 103/ul Normal 0.0-0.7 [facility] Comment on above: Performed By: #### C BC #### [facility] [address] [place] [address] Dr. Ayden Cam Eosinophils/100 WBC (Bld) 3.3 % Normal 0.9-7.0 [facility] Comment on above: Performed By: #### C BC #### [facility] [address] [place] [address] Dr. Ayden Cam Erythrocyte distribution width (RBC) [Ratio] 12.1 % Normal 11.0-15.0 [facility] Comment on above: Performed By: #### C BC #### [facility] [address] [place] [address] Dr. Ayden Cam Hematocrit (Bld) [Volume fraction] 40.0 % Normal 36.0-48.0 [facility] Comment on above: Performed By: #### C BC #### [facility] [address] [place] [address] Dr. Ayden Cam Hemoglobin (Bld) [Mass/Vol] 14.2 g/dL Normal 12.0-16.0 [facility] Comment on above: Performed By: #### C BC #### [facility] [address] [place] [address] Dr. Adyen Cam IG # 0.01 10e3/ul Normal 0.00-0.03 [facility] Comment on above: Performed By: #### C BC #### [facility] [address] [place] [address] Dr. Ayden Cam IG % 0.2 % Normal 0.0-0.5 [facility] Comment on above: Performed By: #### C BC #### [facility] [address] [place] [address] Dr. Ayden Cam LYMPH # 1.5 103/ul Normal 1.2-3.8 [facility] Comment on above: Performed By: #### C BC #### [facility] [address] [place] [address] Dr. Ayden Cam Lymphocytes/100 WBC (Bld) 24.2 % Normal 20.5-60.0 [facility] Comment on above: Performed By: #### C BC #### [facility] [address] [place] [address] Dr. Ayden Cam MANUAL DIFF REQ NO Normal [facility] Comment on above: Performed By: #### C BC #### [facility] [address] [place] [address] Dr. Ayden Cam MCH (RBC) [Entitic mass] 30.0 pg Normal 26.7-34.0 [facility] Comment on above: Performed By: #### C BC #### [facility] [address] [place] [address] Dr. Ayden Cam MCHC (RBC) [Mass/Vol] 35.5 g/dL Critically high 29.9-35.2 [facility] Comment on above: Performed By: #### C BC #### [facility] [address] [place] [address] Dr. Ayden Cam MCV (RBC) [Entitic vol] 84.4 fL Normal 81.0-99.0 [facility] Comment on above: Performed By: #### C BC #### [facility] [address] [place] [address] Dr. Ayden Cam MONO # 0.6 103/ul Normal 0.3-0.8 [facility] Comment on above: Performed By: #### C BC #### [facility] [address] [place] [address] Dr. Ayden Cam Monocytes/100 WBC (Bld) 10.3 % Normal 1.7-12.0 [facility] Comment on above: Performed By: #### C BC #### [facility] [address] [place] [address] Dr. Ayden Cam NEUT # 3.7 103/ul Normal 1.4-6.5 [facility] Comment on above: Performed By: #### C BC #### [facility] [address] [place] [address] Dr. Ayden Cam Neutrophils/100 WBC (Bld) 61.8 % Normal 43.0-75.0 [facility] Comment on above: Performed By: #### C BC #### [facility] [address] [place] [address] Dr. Ayden Cam Platelet mean volume (Bld) [Entitic vol] 9.0 fL Critically low 9.5-13.5 [facility] Comment on above: Performed By: #### C BC #### [facility] [address] [place] [address] Dr. Ayden Cam PLT 191 103/ul Normal 150-450 [facility] Comment on above: Performed By: #### C BC #### [facility] [address] [place] [address] Dr. Ayden Cam RBC 4.74 106/ul Normal 4.20-5.40 [facility] Comment on above: Performed By: #### C BC #### [facility] [address] [place] [address] Dr. Ayden Cam WBC 6.0 103/ul Normal 4.0-11.0 [facility] Comment on above: Performed By: #### C BC #### [facility] [address] [place] [address] Dr. Ayden Cam LIPASEon 10-09-2022 Lipase [Catalytic activity/Vol] 168.0 U/L Normal 73.0-393.0 [facility] Comment on above: Performed By: #### L ACT #### [facility] [address] [place] [address] Dr. Ayden Cam PROF 14(COMP METB)on 023 Albumin [Mass/Vol] 3.6 g/dL Normal 3.4-5.0 [facility] Comment on above: Performed By: #### L IPA #### [facility] [address] [place] [address] Dr. Ayden Cam Albumin/Globulin [Mass ratio] 1.1 {ratio} Normal [facility] Comment on above: Performed By: #### L IPA #### [facility] [address] [place] [address] Dr. Ayden Cam ALP [Catalytic activity/Vol] 93 U/L Normal 46-116 [facility] Comment on above: Performed By: #### L IPA #### [facility] [address] [place] [address] Dr. Ayden Cam ALT [Catalytic activity/Vol] 52 U/L Normal 14-59 [facility] Comment on above: Performed By: #### L IPA #### [facility] [address] [place] [address] Dr. Ayden Cam Anion gap [Moles/Vol] 10.2 mmol/L Normal Th [facility] Comment on above: Performed By: #### L IPA #### [facility] [address] [place] [address] Dr. Ayden Cam AST [Catalytic activity/Vol] 33 U/L Normal 15-37 [facility] Comment on above: Performed By: #### L IPA #### [facility] [address] [address] [address] Ayden Cam Bilirubin [Mass/Vol] 0.3 mg/dL Normal 0.2-1.0 [facility] Comment on above: Performed By: #### L IPA #### [facility] [address] [place] [address] Dr. Ayden Cam Calcium [Mass/Vol] 9.4 mg/dL Normal 8.5-10.1 [facility] Comment on above: Performed By: #### L IPA #### [facility] [address] [place] [address] Dr. Ayden Cam Chloride [Moles/Vol] 99 mmol/L Normal 98-107 [facility] Comment on above: Performed By: #### L IPA #### [facility] [address] [place] [address] Dr. Ayden Cam CO2 [Moles/Vol] 33.7 mmol/L Critically high 21.0-32.0 [facility] Comment on above: Performed By: #### L IPA #### [facility] [address] [place] [address] Dr. Ayden Cam Creatinine [Mass/Vol] 0.62 mg/dL Normal 0.55-1.02 [facility] Comment on above: Performed By: #### L IPA #### [facility] [address] [place] [address] Dr. Ayden Cam EGFR-AF TAIWANESE >60 Normal >=60 [facility] Comment on above: Performed By: #### L IPA #### [facility] [address] [place] [address] Dr. Ayden Cam EGFR-NON AF TAIWANESE >60 Normal >=60 [facility] Comment on above: Performed By: #### L IPA #### [facility] [address] [address] [address] Ayden Cam Globulin (S) [Mass/Vol] 3.4 g/dL Normal [facility] Comment on above: Performed By: #### L IPA #### [facility] [address] [address] [address] Ayden Cam Glucose [Mass/Vol] 105 mg/dL Normal 74-106 [facility] Comment on above: Performed By: #### L IPA #### [facility] [address] [address] [address] Ayden Cam Potassium [Moles/Vol] 3.9 mmol/L Normal 3.5-5.1 [facility] Comment on above: Performed By: #### L IPA #### [facility] [address] [address] [address] Ayden Cam Protein [Mass/Vol] 7.0 g/dL Normal 6.4-8.2 [facility] Comment on above: Performed By: #### L IPA #### [facility] [address] [address] [address] Ayden Cam Sodium [Moles/Vol] 139 mmol/L Normal 136-145 [facility] Comment on above: Performed By: #### L IPA #### [facility] [address] [address] [address] Ayden Cam Urea nitrogen [Mass/Vol] 28.0 mg/dL Critically high 7.0-18.0 [facility] Comment on above: Performed By: #### L IPA #### [facility] [address] [address] [address] Ayden Cam Urea nitrogen/Creatinine [Mass ratio] 45.2 mg/mg Normal [facility] Comment on above: Performed By: #### L IPA #### [facility] [address] [address] [address] Ayden Cam AMMONIAon 10-06-2022 Ammonia (P) [Moles/Vol] 16 umol/L Normal 11-32 [facility] Comment on above: Performed By: #### A MM #### [facility] [address] [place] [address] Dr. Ayden Cam AMYLASEon 10-06-2022 Amylase [Catalytic activity/Vol] 189 U/L Critically high 25-115 [facility] Comment on above: Performed By: #### L IPA #### [facility] [address] [place] [address] Dr. Ayden Cam CBC AUTO DIFFon 10-06-2022 BASO # 0.0 103/ul Normal 0.0-0.1 [facility] Comment on above: Performed By: #### C BC #### [facility] [address] [place] [address] Dr. Ayden Cam Basophils/100 WBC (Bld) 0.2 % Normal 0.2-2.0 [facility] Comment on above: Performed By: #### C BC #### [facility] [address] [place] [address] Dr. Ayden Cam EO # 0.3 103/ul Normal 0.0-0.7 [facility] Comment on above: Performed By: #### C BC #### [facility] [address] [place] [address] Dr. Ayden Cam Eosinophils/100 WBC (Bld) 5.2 % Normal 0.9-7.0 [facility] Comment on above: Performed By: #### C BC #### [facility] [address] [place] [address] Dr. Ayden Cam Erythrocyte distribution width (RBC) [Ratio] 12.3 % Normal 11.0-15.0 [facility] Comment on above: Performed By: #### C BC #### [facility] [address] [place] [address] Dr. Ayden Cam Hematocrit (Bld) [Volume fraction] 36.9 % Normal 36.0-48.0 [facility] Comment on above: Performed By: #### C BC #### [facility] [address] [place] [address] Dr. Ayden Cam Hemoglobin (Bld) [Mass/Vol] 12.4 g/dL Normal 12.0-16.0 [facility] Comment on above: Performed By: #### C BC #### [facility] [address] [place] [address] Dr. Ayden Cam IG # 0.01 10e3/ul Normal 0.00-0.03 [facility] Comment on above: Performed By: #### C BC #### [facility] [address] [place] [address] Dr. Ayden Cam IG % 0.2 % Normal 0.0-0.5 [facility] Comment on above: Performed By: #### C BC #### [facility] [address] [place] [address] Dr. Ayden Cam LYMPH # 1.8 103/ul Normal 1.2-3.8 [facility] Comment on above: Performed By: #### C BC #### [facility] [address] [place] [address] Dr. Ayden Cam Lymphocytes/100 WBC (Bld) 31.3 % Normal 20.5-60.0 [facility] Comment on above: Performed By: #### C BC #### [facility] [address] [place] [address] Dr. Ayden Cam MANUAL DIFF REQ NO Normal [facility] Comment on above: Performed By: #### C BC #### [facility] [address] [place] [address] Dr. Ayden Cam MCH (RBC) [Entitic mass] 30.0 pg Normal 26.7-34.0 [facility] Comment on above: Performed By: #### C BC #### [facility] [address] [place] [address] Dr. Ayden Cam MCHC (RBC) [Mass/Vol] 33.6 g/dL Normal 29.9-35.2 [facility] Comment on above: Performed By: #### C BC #### [facility] [address] [place] [address] Dr. Ayden Cam MCV (RBC) [Entitic vol] 89.1 fL Normal 81.0-99.0 [facility] Comment on above: Performed By: #### C BC #### [facility] [address] [address] [address] Ayden Cam MONO # 0.6 103/ul Normal 0.3-0.8 [facility] Comment on above: Performed By: #### C BC #### [facility] [address] [address] [address] Ayden Cam Monocytes/100 WBC (Bld) 10.1 % Normal 1.7-12.0 [facility] Comment on above: Performed By: #### C BC #### [facility] [address] [address] [address] Ayden Cam NEUT # 3.1 103/ul Normal 1.4-6.5 [facility] Comment on above: Performed By: #### C BC #### [facility] [address] [address] [address] Ayden Cam Neutrophils/100 WBC (Bld) 53.0 % Normal 43.0-75.0 [facility] Comment on above: Performed By: #### C BC #### [facility] [address] [address] [address] Ayden Cam Platelet mean volume (Bld) [Entitic vol] 9.4 fL Critically low 9.5-13.5 [facility] Comment on above: Performed By: #### C BC #### [facility] [address] [address] [address] Ayden Cam PLT 153 103/ul Normal 150-450 [facility] Comment on above: Performed By: #### C BC #### [facility] [address] [address] [address] Ayden Cam RBC 4.14 106/ul Critically low 4.20-5.40 [facility] Comment on above: Performed By: #### C BC #### [facility] [address] [address] [address] Ayden Cam WBC 5.8 103/ul Normal 4.0-11.0 [facility] Comment on above: Performed By: #### C BC #### [facility] [address] [place] [address] Dr. Ayden Cam LIPASEon 10-06-2022 Lipase [Catalytic activity/Vol] 166.0 U/L Normal 73.0-393.0 [facility] Comment on above: Performed By: #### L IPA #### [facility] [address] [place] [address] Dr. Ayden Cam LIVER PROFILEon 10-06-2022 Albumin [Mass/Vol] 3.2 g/dL Critically low 3.4-5.0 [facility] Comment on above: Performed By: #### L IPA #### [facility] [address] [place] [address] Dr. Ayden Cam Albumin/Globulin [Mass ratio] 1.3 {ratio} Normal [facility] Comment on above: Performed By: #### L IPA #### [facility] [address] [place] [address] Dr. Ayden Cam ALP [Catalytic activity/Vol] 88 U/L Normal 46-116 [facility] Comment on above: Performed By: #### L IPA #### [facility] [address] [place] [address] Dr. Adyen Cam ALT [Catalytic activity/Vol] 66 U/L Critically high 14-59 [facility] Comment on above: Performed By: #### L IPA #### [facility] [address] [place] [address] Dr. Ayden Cam AST [Catalytic activity/Vol] 39 U/L Critically high 15-37 [facility] Comment on above: Performed By: #### L IPA #### [facility] [address] [place] [address] Dr. Ayden Cam BILI, CONJUGATED 0.1 mg/dL Normal 0.0-0.2 [facility] Comment on above: Performed By: #### L IPA #### [facility] [address] [place] [address] Dr. Ayden Cam Bilirubin [Mass/Vol] 0.4 mg/dL Normal 0.2-1.0 [facility] Comment on above: Performed By: #### L IPA #### [facility] [address] [address] [address] Ayden Cam Globulin (S) [Mass/Vol] 2.4 g/dL Normal [facility] Comment on above: Performed By: #### L IPA #### [facility] [address] [address] [address] Ayden Cam Protein [Mass/Vol] 5.6 g/dL Critically low 6.4-8.2 Th [facility] Comment on above: Performed By: #### L IPA #### [facility] [address] [place] [address] Dr. Ayden Cam PROF CHEM 8 (BAS METB)on Anion gap [Moles/Vol] 6.8 mmol/L Normal [facility] Comment on above: Performed By: #### L IPA #### [facility] [address] [place] [address] Dr. Ayden Cam Calcium [Mass/Vol] 8.6 mg/dL Normal 8.5-10.1 [facility] Comment on above: Performed By: #### L IPA #### [facility] [address] [place] [address] Dr. Ayden Cam Chloride [Moles/Vol] 102 mmol/L Normal 98-107 [facility] Comment on above: Performed By: #### L IPA #### [facility] [address] [place] [address] Dr. Ayden Cam CO2 [Moles/Vol] 32.6 mmol/L Critically high 21.0-32.0 [facility] Comment on above: Performed By: #### L IPA #### [facility] [address] [place] [address] Dr. Ayden Cam Creatinine [Mass/Vol] 0.61 mg/dL Normal 0.55-1.02 [facility] Comment on above: Performed By: #### L IPA #### [facility] [address] [place] [address] Dr. Ayden Cam EGFR-AF TAIWANESE >60 Normal >=60 [facility] Comment on above: Performed By: #### L IPA #### [facility] [address] [address] [address] Ayden Cam EGFR-NON AF TAIWANESE >60 Normal >=60 [facility] Comment on above: Performed By: #### L IPA #### [facility] [address] [address] [address] Ayden Cam Glucose [Mass/Vol] 91 mg/dL Normal 74-106 [facility] Comment on above: Performed By: #### L IPA #### [facility] [address] [address] [address] Ayden Cam Potassium [Moles/Vol] 3.4 mmol/L Critically low 3.5-5.1 [facility] Comment on above: Performed By: #### L IPA #### [facility] [address] [address] [address] Ayden Cam Sodium [Moles/Vol] 138 mmol/L Normal 136-145 [facility] Comment on above: Performed By: #### L IPA #### [facility] [address] [address] [address] Ayden Cam Urea nitrogen [Mass/Vol] 13.0 mg/dL Normal 7.0-18.0 [facility] Comment on above: Performed By: #### L IPA #### [facility] [address] [place] [address] Dr. Ayden Cam Urea nitrogen/Creatinine [Mass ratio] 21.3 mg/mg Normal [facility] Comment on above: Performed By: #### L IPA #### [facility] [address] [address] [address] Ayden Cam AMMONIAon 10-05-2022 Ammonia (P) [Moles/Vol] 10 umol/L Critically low 11-32 [facility] Comment on above: Performed By: #### A MM #### [facility] [address] [address] [address] Ayden Cam AMYLASEon 10-05-2022 Amylase [Catalytic activity/Vol] 109 U/L Normal 25-115 [facility] Comment on above: Performed By: #### A MY #### [facility] [address] [address] [address] Ayden Cam CBC AUTO DIFFon 10-05-2022 BASO # 0.0 103/ul Normal 0.0-0.1 [facility] Comment on above: Performed By: #### L IPA #### [facility] [address] [address] [address] Ayden Cam Basophils/100 WBC (Bld) 0.3 % Normal 0.2-2.0 [facility] Comment on above: Performed By: #### L IPA #### [facility] [address] [address] [address] Ayden Cam EO # 0.3 103/ul Normal 0.0-0.7 [facility] Comment on above: Performed By: #### L IPA #### [facility] [address] [place] [address] Dr. Ayden Cam Eosinophils/100 WBC (Bld) 4.3 % Normal 0.9-7.0 [facility] Comment on above: Performed By: #### L IPA #### [facility] [address] [place] [address] Dr. Ayden Cam Erythrocyte distribution width (RBC) [Ratio] 12.2 % Normal 11.0-15.0 [facility] Comment on above: Performed By: #### L IPA #### [facility] [address] [place] [address] Dr. Ayden Cam Hematocrit (Bld) [Volume fraction] 38.9 % Normal 36.0-48.0 [facility] Comment on above: Performed By: #### L IPA #### [facility] [address] [place] [address] Dr. Ayden Cam Hemoglobin (Bld) [Mass/Vol] 12.8 g/dL Normal 12.0-16.0 [facility] Comment on above: Performed By: #### L IPA #### [facility] [address] [place] [address] Dr. Ayden Cam IG # 0.01 10e3/ul Normal 0.00-0.03 [facility] Comment on above: Performed By: #### L IPA #### [facility] [address] [place] [address] Dr. Ayden Cam IG % 0.2 % Normal 0.0-0.5 [facility] Comment on above: Performed By: #### L IPA #### [facility] [address] [place] [address] Dr. Ayden Cam LYMPH # 1.9 103/ul Normal 1.2-3.8 [facility] Comment on above: Performed By: #### L IPA #### [facility] [address] [place] [address] Dr. Ayden Cam Lymphocytes/100 WBC (Bld) 31.4 % Normal 20.5-60.0 [facility] Comment on above: Performed By: #### L IPA #### [facility] [address] [place] [address] Dr. Ayden Cam MANUAL DIFF REQ NO Normal [facility] Comment on above: Performed By: #### L IPA #### [facility] [address] [place] [address] Dr. Ayden Cam MCH (RBC) [Entitic mass] 29.6 pg Normal 26.7-34.0 [facility] Comment on above: Performed By: #### L IPA #### [facility] [address] [place] [address] Dr. Ayden Cam MCHC (RBC) [Mass/Vol] 32.9 g/dL Normal 29.9-35.2 [facility] Comment on above: Performed By: #### L IPA #### [facility] [address] [place] [address] Dr. Ayden Cam MCV (RBC) [Entitic vol] 89.8 fL Normal 81.0-99.0 [facility] Comment on above: Performed By: #### L IPA #### [facility] [address] [place] [address] Dr. Ayden Cam MONO # 0.6 103/ul Normal 0.3-0.8 [facility] Comment on above: Performed By: #### L IPA #### [facility] [address] [place] [address] Dr. Ayden Cam Monocytes/100 WBC (Bld) 10.1 % Normal 1.7-12.0 [facility] Comment on above: Performed By: #### L IPA #### [facility] [address] [place] [address] Dr. Ayden Cma NEUT # 3.2 103/ul Normal 1.4-6.5 [facility] Comment on above: Performed By: #### L IPA #### [facility] [address] [place] [address] Dr. Ayden Cam Neutrophils/100 WBC (Bld) 53.7 % Normal 43.0-75.0 [facility] Comment on above: Performed By: #### L IPA #### [facility] [address] [place] [address] Dr. Ayden Cam Platelet mean volume (Bld) [Entitic vol] 9.7 fL Normal 9.5-13.5 [facility] Comment on above: Performed By: #### L IPA #### [facility] [address] [place] [address] Dr. Ayden Cam PLT 168 103/ul Normal 150-450 [facility] Comment on above: Performed By: #### L IPA #### [facility] [address] [place] [address] Dr. Ayden Cam RBC 4.33 106/ul Normal 4.20-5.40 [facility] Comment on above: Performed By: #### L IPA #### [facility] [address] [place] [address] Dr. Ayden Cam WBC 6.0 103/ul Normal 4.0-11.0 [facility] Comment on above: Performed By: #### L IPA #### [facility] [address] [place] [address] Dr. Ayden Cam LIPASEon 10-05-2022 Lipase [Catalytic activity/Vol] 151.0 U/L Normal 73.0-393.0 [facility] Comment on above: Performed By: #### L IPA #### [facility] [address] [place] [address] Dr. Ayden Cam LIVER PROFILEon 10-05-2022 Albumin [Mass/Vol] 3.2 g/dL Critically low 3.4-5.0 Th [facility] Comment on above: Performed By: #### L ACT #### [facility] [address] [place] [address] Dr. Ayden Cam Albumin/Globulin [Mass ratio] 1.1 {ratio} Normal [facility] Comment on above: Performed By: #### L ACT #### [facility] [address] [place] [address] Dr. Ayden Cam ALP [Catalytic activity/Vol] 82 U/L Normal 46-116 [facility] Comment on above: Performed By: #### L ACT #### [facility] [address] [place] [address] Dr. Ayden Cam ALT [Catalytic activity/Vol] 70 U/L Critically high 14-59 [facility] Comment on above: Performed By: #### L ACT #### [facility] [address] [place] [address] Dr. Ayden Cam AST [Catalytic activity/Vol] 36 U/L Normal 15-37 [facility] Comment on above: Performed By: #### L ACT #### [facility] [address] [place] [address] Dr. Ayden Cam BILI, CONJUGATED 0.1 mg/dL Normal 0.0-0.2 [facility] Comment on above: Performed By: #### L ACT #### [facility] [address] [place] [address] Dr. Ayden Cam Bilirubin [Mass/Vol] 0.3 mg/dL Normal 0.2-1.0 [facility] Comment on above: Performed By: #### L ACT #### [facility] [address] [place] [address] Dr. Ayden Cam Globulin (S) [Mass/Vol] 3.0 g/dL Normal [facility] Comment on above: Performed By: #### L ACT #### [facility] [address] [place] [address] Dr. Ayden Cam Protein [Mass/Vol] 6.2 g/dL Critically low 6.4-8.2 Th e [facility] Comment on above: Performed By: #### L ACT #### [facility] [address] [place] [address] Dr. Ayden Cam PROF CHEM 8 (BAS METB)on Anion gap [Moles/Vol] 9.5 mmol/L Normal [facility] Comment on above: Performed By: #### B MP #### [facility] [address] [address] [address] Ayden Cam Calcium [Mass/Vol] 8.9 mg/dL Normal 8.5-10.1 [facility] Comment on above: Performed By: #### B MP #### [facility] [address] [place] [address] Dr. Ayden Cam Chloride [Moles/Vol] 105 mmol/L Normal 98-107 [facility] Comment on above: Performed By: #### B MP #### [facility] [address] [place] [address] Dr. Ayden Cam CO2 [Moles/Vol] 29.6 mmol/L Normal 21.0-32.0 [facility] Comment on above: Performed By: #### B MP #### [facility] [address] [place] [address] Dr. Ayden Cam Creatinine [Mass/Vol] 0.56 mg/dL Normal 0.55-1.02 [facility] Comment on above: Performed By: #### B MP #### [facility] [address] [place] [address] Dr. Ayden Cam EGFR-AF TAIWANESE >60 Normal >=60 [facility] Comment on above: Performed By: #### B MP #### [facility] [address] [place] [address] Dr. Ayden Cam EGFR-NON AF TAIWANESE >60 Normal >=60 [facility] Comment on above: Performed By: #### B MP #### [facility] [address] [place] [address] Dr. Ayden Cam Glucose [Mass/Vol] 88 mg/dL Normal 74-106 [facility] Comment on above: Performed By: #### B MP #### [facility] [address] [place], [place] [address] Dr. Ayden Cam Potassium [Moles/Vol] 4.1 mmol/L Normal 3.5-5.1 [facility] Comment on above: Performed By: #### B MP #### [facility] [address] [place], [place] [address] Dr. Ayden Cam Sodium [Moles/Vol] 140 mmol/L Normal 136-145 [facility] Comment on above: Performed By: #### B MP #### [facility] [address] [id number] [address] Ayden Cam Urea nitrogen [Mass/Vol] 15.0 mg/dL Normal 7.0-18.0 [facility] Comment on above: Performed By: #### B MP #### [facility] [id number] Ayden Cam Urea nitrogen/Creatinine [Mass ratio] 26.8 mg/mg Normal [facility] Comment on above: Performed By: #### B MP #### [facility] [address] [place], [place] [address] Dr. Ayden Cam US Jhony 10-05-2022 US [...] Normal [facility] XR KUB 1 VIEWon 10-05-2022 XR KUB [...] Normal [facility] AMYLASEon 10-04-2022 Amylase [Catalytic activity/Vol] 124 U/L Critically high 25-115 [facility] Comment on above: Performed By: #### L IPA, COLE, CMP #### [facility] [address] [place] [address] Dr. Ayden Cam CBC AUTO DIFFon 10-04-2022 BASO # 0.0 103/ul Normal 0.0-0.1 [facility] Comment on above: Performed By: #### L IPA #### [facility] [address] [place] [address] Dr. Ayden Cam Basophils/100 WBC (Bld) 0.3 % Normal 0.2-2.0 [facility] Comment on above: Performed By: #### L IPA #### [facility] [address] [place] [address] Dr. Ayden Cam EO # 0.2 103/ul Normal 0.0-0.7 [facility] Comment on above: Performed By: #### L IPA #### [facility] [address] [place] [address] Dr. Ayden Cam Eosinophils/100 WBC (Bld) 2.9 % Normal 0.9-7.0 [facility] Comment on above: Performed By: #### L IPA #### [facility] [address] [place] [address] Dr. Ayden Cam Erythrocyte distribution width (RBC) [Ratio] 12.3 % Normal 11.0-15.0 [facility] Comment on above: Performed By: #### L IPA #### [facility] [address] [place] [address] Dr. Ayden Cam Hematocrit (Bld) [Volume fraction] 42.0 % Normal 36.0-48.0 [facility] Comment on above: Performed By: #### L IPA #### [facility] [address] [place] [address] Dr. Ayden Cam Hemoglobin (Bld) [Mass/Vol] 14.3 g/dL Normal 12.0-16.0 [facility] Comment on above: Performed By: #### L IPA #### [facility] [address] [place] [address] Dr. Ayden Cam IG # 0.02 10e3/ul Normal 0.00-0.03 [facility] Comment on above: Performed By: #### L IPA #### [facility] [address] [place] [address] Dr. Ayden Cam IG % 0.3 % Normal 0.0-0.5 [facility] Comment on above: Performed By: #### L IPA #### [facility] [address] [place] [address] Dr. Ayden Cam LYMPH # 1.7 103/ul Normal 1.2-3.8 [facility] Comment on above: Performed By: #### L IPA #### [facility] [address] [place] [address] Dr. Ayden Cam Lymphocytes/100 WBC (Bld) 22.5 % Normal 20.5-60.0 [facility] Comment on above: Performed By: #### L IPA #### [facility] [address] [place] [address] Dr. Ayden Cam MANUAL DIFF REQ NO Normal [facility] Comment on above: Performed By: #### L IPA #### [facility] [address] [place] [address] Dr. Ayden Cam MCH (RBC) [Entitic mass] 30.1 pg Normal 26.7-34.0 [facility] Comment on above: Performed By: #### L IPA #### [facility] [address] [place] [address] Dr. Ayden Cam MCHC (RBC) [Mass/Vol] 34.0 g/dL Normal 29.9-35.2 [facility] Comment on above: Performed By: #### L IPA #### [facility] [address] [place] [address] Dr. Ayden Cam MCV (RBC) [Entitic vol] 88.4 fL Normal 81.0-99.0 [facility] Comment on above: Performed By: #### L IPA #### [facility] [address] [place] [address] Dr. Ayden Cam MONO # 0.5 103/ul Normal 0.3-0.8 [facility] Comment on above: Performed By: #### L IPA #### [facility] [address] [place] [address] Dr. Ayden Cam Monocytes/100 WBC (Bld) 6.0 % Normal 1.7-12.0 [facility] Comment on above: Performed By: #### L IPA #### [facility] [address] [place] [address] Dr. Ayden Cam NEUT # 5.2 103/ul Normal 1.4-6.5 [facility] Comment on above: Performed By: #### L IPA #### [facility] [address] [place] [address] Dr. Ayden Cam Neutrophils/100 WBC (Bld) 68.0 % Normal 43.0-75.0 [facility] Comment on above: Performed By: #### L IPA #### [facility] [address] [place] [address] Dr. Ayden Cam Platelet mean volume (Bld) [Entitic vol] 9.6 fL Normal 9.5-13.5 [facility] Comment on above: Performed By: #### L IPA #### [facility] [address] [place] [address] Dr. Ayden Cam PLT 183 103/ul Normal 150-450 [facility] Comment on above: Performed By: #### L IPA #### [facility] [address] [place] [address] Dr. Ayden Cam RBC 4.75 106/ul Normal 4.20-5.40 [facility] Comment on above: Performed By: #### L IPA #### [facility] [address] [place], [place] [id number] Dr. Ayden Cam WBC 7.6 103/ul Normal 4.0-11.0 [facility] Comment on above: Performed By: #### L IPA #### [facility] [address] [place] [address] Dr. Ayden Cam Covid-19 PCR ([facility])on SARS-CoV-2 (COVID-19) RNA LOWELL+probe Ql (Unsp spec) Not detected Normal NOT DETECTED [facility] Comment on above: Result Comment: When diagnostic [...] for this test is supported by the [place] of Health and Human Service's declaration that [...] IPA #### [facility] [address] [place] [address] Dr. Ayden Cam ER URINE PROFILEon 3 Bilirubin Ql (U) Negative Normal NEGATIVE [facility] Comment on above: Performed By: #### L ACT #### [facility] [address] [place] [address] Dr. Ayden Cam Clarity (U) CLEAR Normal CLEAR [facility] Comment on above: Performed By: #### L ACT #### [facility] [address] [place] [address] Dr. Ayden Cam Color (U) LT. YELLOW Normal YELLOW [facility] Comment on above: Performed By: #### L ACT #### [facility] [address] [address] [address] Ayden Cam ERUAHD A micrscopic examina tion will be performed if indicated. Normal [facility] Comment on above: Performed By: #### L ACT #### [facility] [address] [place] [address] Dr. Ayden Cam Glucose Ql (U) Negative Normal NEGATIVE [facility] Comment on above: Performed By: #### L ACT #### [facility] [address] [place] [address] Dr. Ayden Cam Hemoglobin Ql (U) Negative Normal NEGATIVE [facility] Comment on above: Performed By: #### L ACT #### [facility] [address] [place] [address] Dr. Ayden Cam Ketones Ql (U) Negative Normal NEGATIVE [facility] Comment on above: Performed By: #### L ACT #### [facility] [address] [place] [address] Dr. Ayden Cam LEUKOCYTES Negative Normal NEGATIVE [facility] Comment on above: Performed By: #### L ACT #### [facility] [address] [place] [address] Dr. Ayden Cam Nitrite Ql (U) Negative Normal NEGATIVE [facility] Comment on above: Performed By: #### L ACT #### [facility] [address] [place] [address] Dr. Ayden Cam pH (U) 8.5 [pH] Normal 5-9 [facility] Comment on above: Performed By: #### L ACT #### [facility] [address] [place] [address] Dr. Ayden Cam SPEC GRAVITY 1.015 Normal 1.005-<=1.02 5 [facility] Comment on above: Performed By: #### L ACT #### [facility] [address] [place] [address] Dr. Ayden Cma UA PROTEIN Negative Normal NEGATIVE/ TRACE [facility] Comment on above: Performed By: #### L ACT #### [facility] [address] [place] [address] Dr. Ayden Cam UR MICRO IND NOT INDICATED Normal [facility] Comment on above: Performed By: #### L ACT #### [facility] [address] [place] [address] Dr. Ayden Cam Urobilinogen Qn (U) 0.2 {Peggy'U}/dL Normal 0.2 - 1. 0 [facility] Comment on above: Performed By: #### L ACT #### [facility] [address] [place] [address] Dr. Ayden Cam LACTATE/LACTIC ACIDon 2022 Lactate [Moles/Vol] 0.8 mmol/L Normal 0.4-1.9 [facility] Comment on above: Performed By: #### L ACT #### [facility] [address] [place] [address] Dr. Ayden Cam LIPASEon 10-04-2022 Lipase [Catalytic activity/Vol] 170.0 U/L Normal 73.0-393.0 [facility] Comment on above: Performed By: #### L ACT #### [facility] [address] [place] [address] Dr. Ayden Cam PROF 14(COMP METB)on 023 Albumin [Mass/Vol] 3.8 g/dL Normal 3.4-5.0 [facility] Comment on above: Performed By: #### L ACT #### [facility] [address] [place] [address] Dr. Ayden Cam Albumin/Globulin [Mass ratio] 1.1 {ratio} Normal [facility] Comment on above: Performed By: #### L ACT #### [facility] [address] [place] [address] Dr. Ayden Cam ALP [Catalytic activity/Vol] 101 U/L Normal 46-116 [facility] Comment on above: Performed By: #### L ACT #### [facility] [address] [address] [address] Ayden Cam ALT [Catalytic activity/Vol] 94 U/L Critically high 14-59 [facility] Comment on above: Performed By: #### L ACT #### [facility] [address] [address] [address] Ayden Cam Anion gap [Moles/Vol] 11.1 mmol/L Normal Th [facility] Comment on above: Performed By: #### L ACT #### [facility] [address] [address] [address] Ayden Cam AST [Catalytic activity/Vol] 59 U/L Critically high 15-37 [facility] Comment on above: Performed By: #### L ACT #### [facility] [address] [address] [address] Ayden Cam Bilirubin [Mass/Vol] 0.3 mg/dL Normal 0.2-1.0 [facility] Comment on above: Performed By: #### L ACT #### [facility] [address] [address] [address] Ayden Cam Calcium [Mass/Vol] 9.5 mg/dL Normal 8.5-10.1 [facility] Comment on above: Performed By: #### L ACT #### [facility] [address] [address] [address] Ayden Cam Chloride [Moles/Vol] 99 mmol/L Normal 98-107 [facility] Comment on above: Performed By: #### L ACT #### [facility] [address] [address] [address] Ayden Cam CO2 [Moles/Vol] 29.7 mmol/L Normal 21.0-32.0 [facility] Comment on above: Performed By: #### L ACT #### [facility] [address] [address] [address] Ayden Cam Creatinine [Mass/Vol] 0.61 mg/dL Normal 0.55-1.02 [facility] Comment on above: Performed By: #### L ACT #### [facility] [address] [address] [address] Ayden Cam EGFR-AF TAIWANESE >60 Normal >=60 [facility] Comment on above: Performed By: #### L ACT #### [facility] [address] [address] [address] Ayden Cam EGFR-NON AF TAIWANESE >60 Normal >=60 [facility] Comment on above: Performed By: #### L ACT #### [facility] [address] [address] [address] Ayden Cam Globulin (S) [Mass/Vol] 3.4 g/dL Normal [facility] Comment on above: Performed By: #### L ACT #### [facility] [address] [address] [address] Ayden Cam Glucose [Mass/Vol] 111 mg/dL Critically high 74-106 [facility] Comment on above: Performed By: #### L ACT #### [facility] [address] [address] [address] Ayden Cam Potassium [Moles/Vol] 3.8 mmol/L Normal 3.5-5.1 [facility] Comment on above: Performed By: #### L ACT #### [facility] [address] [address] [address] Ayden Cam Protein [Mass/Vol] 7.2 g/dL Normal 6.4-8.2 [facility] Comment on above: Performed By: #### L ACT #### [facility] [address] [address] [address] Ayden Cam Sodium [Moles/Vol] 136 mmol/L Normal 136-145 [facility] Comment on above: Performed By: #### L ACT #### [facility] [address] [address] [address] Ayden Cam Urea nitrogen [Mass/Vol] 23.0 mg/dL Critically high 7.0-18.0 [facility] Comment on above: Performed By: #### L ACT #### [facility] [address] [address] [address] Ayden Cam Urea nitrogen/Creatinine [Mass ratio] 37.7 mg/mg Normal [facility] Comment on above: Performed By: #### L ACT #### [facility] [address] [place] [address] Dr. Ayden Cam TROPONIN, HIGH SENSITIVITYon 10-04-2022 HSTROP 8.9 pg/mL Normal 4.0-51.3 [facility] Comment on above: Result Comment: CUT- OFF POINTS HAVE BEEN ESTABLISHED BASED ON THE FOURTH UNIVERSAL DEFINITIONS OF MYOCARDIAL INFARCTION. THE UPPER REFERENCE LIMIT (URL) OF TROPONIN, DEFINED THE 99TH PERCENTILE OF cTnI DISTRIBUTION IN A REFERENCE POPULATION, HAS BEEN CONFIRMED THE DECISION THRESHOLD FOR [place] DIAGNOSIS. Performed By: #### L ACT #### [facility] [address] [place] [address] Dr. Ayden Cam LIPID PROFILEon 09-19-2022 CHOL-HDL RATIO NORM SEE BELOW Normal [facility] Comment on above: Result Comment: 3.3 - 4.4 LOW RISK 4.4 - 7.1 AVERAGE RISK 7.1 - 11.0 MODERATE RISK >11.0 HIGH RISK Performed By: #### L IPA #### [facility] [address] [place] [address] Dr. Ayden Cam Cholesterol [Mass/Vol] 116 mg/dL Normal <=200 [facility] Comment on above: Performed By: #### L IPA #### [facility] [address] [place] [address] Dr. Ayden Cam Cholesterol in HDL [Mass/Vol] 59 mg/dL Normal 40-60 [facility] Comment on above: Performed By: #### L IPA #### [facility] [address] [place] [address] Dr. Ayden Cam Cholesterol in LDL [Mass/Vol] 34.0 mg/dL Normal [facility] Comment on above: Performed By: #### L IPA #### [facility] [address] [place] [address] Dr. Ayden Cam Cholesterol.total/Cho lesterol in HDL [Mass ratio] 2.0 {ratio} Normal [facility] Comment on above: Performed By: #### L IPA #### [facility] [address] [address] [address] Ayden Cam HDL NORMAL > or = 60 mg/dl - LO W CARDIOVASCULAR RISK <40 mg/dl - HIGH CARDIOVASCULAR RISK Normal [facility] Comment on above: Performed By: #### L IPA #### [facility] [address] [place] [address] Dr. Ayden Cam LDL CALC NORMAL SEE BELOW Normal [facility] Comment on above: Result Comment: <100 mg/dl OPTIMAL 100 - 129 mg/dl NEAR OR ABOVE OPTIMAL 130 - 159 mg/dl BORDERLINE HIGH 160 - 189 mg/dl HIGH >190 mg/dl VERY HIGH Performed By: #### L IPA #### [facility] [address] [place] [address] Dr. Ayden Cam Triglyceride [Mass/Vol] 115 mg/dL Normal <=150 [facility] Comment on above: Performed By: #### L IPA #### [facility] [address] [address] [address] Ayden Cam VLDL CALC 23.0 mg/dL Normal [facility] Comment on above: Performed By: #### L IPA #### [facility] [address] [place] [address] Dr. Ayden Cam VITAMIN D 25 OHon 09-19-2022 VIT D 25-OH 89.3 ng/mL Normal [facility] Comment on above: Performed By: #### V ITAD #### [facility] [address] [place] [address] Dr. Ayden Cam VIT D RANGES SEE BELOW Normal [facility] Comment on above: Result Comment: <20 ng/mL Vit D deficient 20 - <30 ng/mL Vit D insufficient 30 - 100 ng/mL Vit D sufficient >100 ng/mL Potential Toxicity Performed By: #### V ITAD #### [facility] [address] [place] [address] Dr. Ayden Cam Office Visit (Cardiology)on 08-15-2022 Follow-up visit Diagnoses/Problems Assessed Atherosclerosis of coronary artery of [place] heart without angina pectoris (414.01) (I25.10) History of coronary artery bypass graft (V45.81) (Z95.1) Ischemic cardiomyopathy (414.8) (I25.5) Hyperlipidemia (272.4) (E78.5) Essential hypertension, benign (401.1) (I10) Never a smoker Overweight with body mass index (BMI) of 26 to 26.9 in adult (278.02,V85.22) (E66.3,Z68.26) Paroxysmal SVT (supraventricular tachycardia) (427.0) (I47.1) Orders Atherosclerosis of coronary artery of [place] heart without angina pectoris, Essential hypertension, benign, Hyperlipidemia Basic Metabolic Panel; Status:Active - Retrospective Authorization; Requested for:[id number]; Lipid Panel; Status:Active - Retrospective Authorization; Requested for:[id number]; Overweight with body mass index (BMI) of 26 to 26.9 in adult Healthy Weight Tips; Status:Complete - Retrospective Authorization; Done: [id number] Some eating tips that can help you lose weight.; Status:Complete - Retrospective Authorization; Done: [id number] SocHx: Never a smoker Tobacco Use Screening; Status:Complete; Done: [id number] Patient Instructions Please bring all medicines, vitamins, [...] She has a history of prior inferior [place], prior PCI with subsequent three-vessel CABG and [...] FOR CHEST PAIN.CALL 911 IF PAIN PERSISTS. [facility] [id number] UNIT/GM External Powderapply topically to affected area [...] no s (more content not included)... Normal [employer] Tobacco Screening.on Adult depression screening assessment No [facility] [facility] 250 DO Work Phone: Fall risk assessment a) No falls within the last year [facility] DO Work Phone: Tobacco use status [facility] b) No [facility] 250 DO Work Phone: MRI Ankle [...] by Wilder Arango on 08/01/2022 1102 Normal [facility] [employer] Tobacco Screening.on 021 Tobacco use status HS b) No [facility] [facility] 250 DO Work Phone: Vital [...] 09:53-0500 Systolic blood pressure 118 mm[Hg] Celso Garibay DO Work Phone: [facility] 08-19-2024 01:03-0500 Diastolic blood pressure 69 mm[Hg] Ashley Grigsby MD Work Phone: [facility] 08-19-2024 01:03-0500 Heart rate 60 /min Ashley Grigsby MD Work Phone: [facility] 08-19-2024 01:03-0500 Respiratory rate 20 /min Ashley Grigsby MD Work Phone: [facility] 08-19-2024 01:03-0500 SaO2% (BldA) [Mass fraction] 96 % Ashley Grigsby MD Work Phone: [facility] 08-19-2024 01:03-0500 Systolic blood pressure 130 mm[Hg] Ashley Grigsby MD Work Phone: [facility] 08-18-2024 20:55-0500 Body height 160.02 cm Ashley Grigsby MD Work Phone: [facility] 08-18-2024 20:55-0500 Body temperature 97.4 [degF] Ashley Grigsby MD Work Phone: [facility] 08-18-2024 20:55-0500 Body weight 78.5 kg Ashley Grigsby MD Work Phone: [facility] 08-13-2024 12:21-0500 Body height 160 cm [...] Pressure Location JENNIFER MARTINO [facility] 08-05-2024 11:08-0500 Body temperature 98.6 [degF] JENNIFER MARTINO [facility] 08-05-2024 11:08-0500 Diastolic blood pressure 80 mm[Hg] JENNIFER MARTINO [facility] 08-05-2024 11:08-0500 Heart rate 68 /min [place] [facility] 08-05-2024 11:08-0500 Respiratory rate 16 /min [place] [facility] 08-05-2024 11:08-0500 Systolic blood pressure 131 mm[Hg] [place] [facility] 04-10-2024 15:08-0400 Blood Pressure Location [place] [facility] 04-10-2024 15:08-0400 Diastolic blood pressure 80 mm[Hg] [place] [facility] 04-10-2024 15:08-0400 Heart rate 75 /min [place] [facility] 04-10-2024 15:08-0400 Respiratory rate 16 /min [place] [facility] 04-10-2024 15:08-0400 Systolic blood pressure 131 mm[Hg] [place] [facility] 02-29-2024 11:15-0400 Body height 160 cm [facility] 02-29-2024 11:15-0400 Body mass index (BMI) [Ratio] 29.58 kg/m2 [facility] 02-29-2024 11:15-0400 Body weight 75.75 kg [facility] [address] [place] [address] 01-17-2024 16:03-0400 Body height 161.3 cm Stephanie Berger MD PhD Work Phone: [facility] [employer] [facility] 01-17-2024 16:03-0400 Body mass index (BMI) [Ratio] 30.16 kg/m2 Stephanie Berger MD PhD Work Phone: [facility] [employer] 01-17-2024 16:03-0400 Body weight 78.47 kg Stephanie Berger MD PhD Work Phone: [facility] [employer] [facility] 08-14-2023 15:29-0500 Body height 161.3 cm [...] 15:15-0400 Diastolic blood pressure 78 mm[Hg] Gaby Deuce Tello DO Work Phone: [employer] 06-18-2023 15:15-0400 Heart rate 70 /min Gaby Deuce Tello DO Work Phone: [employer] 06-18-2023 15:15-0400 Respiratory rate 18 /min Gaby Deuce Tello DO Work Phone: [employer] 06-18-2023 15:15-0400 SaO2% (BldA) [Mass fraction] 96 % Gaby Deuce Tello DO Work Phone: [facility] [employer] 06-18-2023 15:15-0400 Systolic blood pressure 173 mm[Hg] Gaby Tello DO Work Phone: [facility] [employer] 06-18-2023 14:36-0400 Body temperature 97 [degF] Gaby Tello DO Work Phone: [facility] [employer] 06-18-2023 13:30-0400 Body height 160 cm Gaby Tello DO Work Phone: [facility] [employer] 06-18-2023 13:30-0400 Body mass index (BMI) [Ratio] 27.03 kg/m2 Gaby Tello DO Work Phone: [facility] [employer] 06-18-2023 13:30-0400 Body weight 69.22 kg Gaby Tello DO Work Phone: [facility] [employer] 11-02-2022 15:02-0500 Diastolic blood pressure 84 mm[Hg] MD Ashley Grigsby Work Phone: [facility] 11-02-2022 15:02-0500 Heart rate 78 /min MD Ashley Grigsby Work Phone: [facility] 11-02-2022 15:02-0500 Respiratory rate 18 /min MD Ashley Grigsby Work Phone: [facility] 11-02-2022 15:02-0500 SaO2% (BldA) [Mass fraction] 100 % MD Ashley Grigsby Work Phone: [facility] 11-02-2022 15:02-0500 Systolic blood pressure 161 mm[Hg] MD Ashley Grigsby Work Phone: [facility] 11-02-2022 13:20-0500 Body height 160.02 cm MD Ashley Grigsby Work Phone: [facility] 11-02-2022 13:20-0500 Body temperature 98.2 [degF] MD Ashley Grigsby Work Phone: [facility] 11-02-2022 13:20-0500 Body weight 60.78 kg MD Ashley Grigsby Work Phone: [facility] 11-01-2022 13:26-0500 Diastolic blood pressure 61 mm[Hg] MD Ashley Grigsby Work Phone: [facility] 11-01-2022 13:26-0500 Heart rate 59 /min MD Ashley Grigsby Work Phone: [facility] 11-01-2022 13:26-0500 Respiratory rate 20 /min MD Ashley Grigsby Work Phone: [facility] 11-01-2022 13:26-0500 SaO2% (BldA) [Mass fraction] 99 % MD Ashley Grigsby Work Phone: [facility] 11-01-2022 13:26-0500 Systolic blood pressure 124 mm[Hg] MD Ashley Grigsby Work Phone: [facility] 11-01-2022 10:53-0500 Body height 160.02 cm MD Ashley Grigsby Work Phone: [facility] 11-01-2022 10:53-0500 Body temperature 97.7 [degF] MD Ashley Grigsby Work Phone: [facility] 11-01-2022 10:53-0500 Body weight 61.68 kg MD Ashley Grigsby Work Phone: [facility] 10-24-2022 15:45-0500 Body height 159.38 cm Imad Asaad Other [employer] [facility] [employer] Other 10-24-2022 15:45-0500 Body mass index (BMI) [Ratio] 24.28 kg/m2 Imad Asaad Other [employer] [facility] [employer] Other 10-24-2022 15:45-0500 Body weight 61.69 kg Imad Asaad Other [facility] [employer] Other 10-24-2022 15:45-0500 Diastolic blood pressure 94 mm[Hg] Imad Asaad Other [facility] [employer] Other 10-24-2022 15:45-0500 Systolic blood pressure 133 mm[Hg] Imad Asaad Other [facility] [employer] Other 09-19-2022 00:00-0500 34 1 Ashley M Hoy Work Phone: [facility] 250 DO Work Phone: Comment on above: [facility] 08-15-2022 15:23-0500 Body height 160.02 cm Ashley M Hoy Work Phone: [facility] 250 DO Work Phone: 08-15-2022 15:23-0500 Body mass index (BMI) [Ratio] 26.22 kg/m2 Ashley M Hoy Work Phone: [facility] 250 DO Work Phone: 08-15-2022 15:23-0500 Body surface area Derived from formula 1.7 m2 Ashley M Hoy Work Phone: [facility] 250 DO Work Phone: 08-15-2022 15:23-0500 Body weight 67.13 kg Ashley M Hoy Work Phone: [facility] 250 DO Work Phone: 08-15-2022 15:23-0500 Diastolic blood pressure 82 mm[Hg] Ashley M Hoy Work Phone: [facility] 250 DO Work Phone: 08-15-2022 15:23-0500 Heart rate 80 /min Ashley M Hoy Work Phone: [facility] 250 DO Work Phone: 08-15-2022 15:23-0500 Systolic blood pressure 132 mm[Hg] Ashley Tyree Hoy Work Phone: [facility] 250 DO Work Phone: 06-02-2022 08:12-0400 Blood Pressure Location Santiagohilda CARRILLO [facility] 06-02-2022 08:12-0400 Diastolic blood pressure 86 mm[Hg] Santiagohilda CARRILLO [facility] 06-02-2022 08:12-0400 Heart rate 60 /min Santiagohilda CARRILLO [facility] 06-02-2022 08:12-0400 Respiratory rate 16 /min Santiagohilda CARRILLO [facility] 06-02-2022 08:12-0400 Systolic blood pressure 144 mm[Hg] Santiago CARRILLO [facility] 08-17-2021 09:47-0500 Body height 160.02 cm Ashley M Hoy Work Phone: [facility] 250 DO Work Phone: 08-17-2021 09:47-0500 Body mass index (BMI) [Ratio] 25.01 kg/m2 Ashley M Hoy Work Phone: [facility] 250 DO Work Phone: 08-17-2021 09:47-0500 Body surface area Derived from formula 1.67 m2 Ashley M Hoy Work Phone: [facility] 250 DO Work Phone: 08-17-2021 09:47-0500 Body weight 64.05 kg Ashley Clements Hoestefani Work Phone: [facility] 250 DO Work Phone: 08-17-2021 09:47-0500 Diastolic blood pressure 86 mm[Hg] Ashley Clements Hoy Work Phone: [facility] 250 DO Work Phone: 08-17-2021 09:47-0500 Heart rate 72 /min Ashley Clements Hoy Work Phone: [facility] 250 DO Work Phone: 08-17-2021 09:47-0500 Systolic blood pressure 134 mm[Hg] Ashley Clements Hoy Work Phone: [facility] 250 DO Work Phone: Encounters Encounter Date Encounter Type Care Provider Facility Start: 12-12-2024 End: 12-12-2024 ambulatory [facility] Start: 11-26-2024 End: 11-26-2024 Bamboo flowsheet Raji Byrd PA Work Phone: [facility] Start: 11-26-2024 End: 11-26-2024 Bamboo flowsheet Raji Byrd PA Work Phone: [facility] Start: 11-26-2024 End: 11-26-2024 Office outpatient visit 15 minutes Raji Byrd PA Work Phone: [facility] Comment on above: Acute pain of right wrist (Primary Dx); Tendonitis of wrist, right Start: 11-26-2024 End: 11-26-2024 ambulatory RAJI BYRD Not Available Start: 10-11-2024 End: 10-11-2024 ambulatory RADHA JAIMES [facility] Start: 09-05-2024 End: 09-05-2024 ambulatory [facility] Start: 09-05-2024 End: 09-05-2024 Transitional care manage srvc [facility] day discharge [facility] DO Work Phone: [facility] Comment on above: Atherosclerosis of c oronary artery bypass graft of kotlik heart without angina pectoris; S/P PTCA (percutaneous transluminal coronary angioplasty); History of coronary artery bypass graft; Ischemic cardiomyopathy; Essential hypertension; Mixed hyperlipidemia; BMI 30.0-30.9,adult; Statin intolerance Start: 08-20-2024 End: 08-22-2024 Evaluation and management of inpatient Donis Arroyo Facility:[facility] Start: 08-18-2024 Evaluation and management of inpatient Ashley Grigsby MD Work Phone: [facility] Work Phone: Start: 08-18-2024 observation encounter Ashley Grigsby MD Work Phone: [facility] Work Phone: Start: 08-13-2024 End: 08-13-2024 ambulatory [facility] Ambulatory Start: 08-13-2024 End: 08-13-2024 Office outpatient visit 25 minutes [facility] DO Work Phone: [facility] Comment on above: Atherosclerosis of c oronary artery of kotlik heart without angina pectoris, unspecified vessel or lesion type; History of coronary artery bypass graft; Essential hypertension, benign; Hyperlipidemia, unspecified hyperlipidemia type; Acute pancreatitis, unspecified complication status, unspecified pancreatitis type ([facility]) Start: 08-05-2024 End: 08-05-2024 ambulatory PA-C JENNIFER MARTINO Facility:[facility] Start: 08-05-2024 End: 08-05-2024 Patient encounter procedure JENNIFER MARTINO [facility] Start: 04-10-2024 End: 04-10-2024 ambulatory GENTRY-Soo MARTINO Facility:[facility] Start: 04-10-2024 End: 04-10-2024 Patient encounter procedure JENNIFER MARTINO [facility] Start: 03-11-2024 End: 03-11-2024 ambulatory GENTRY-Soo MARTINO Facility:[facility] Start: 03-11-2024 End: 03-11-2024 Patient encounter procedure JENNIFER MARTINO [facility] Start: 03-07-2024 End: 03-07-2024 Evaluation and management of inpatient ASHLEIGH [facility] Start: 03-06-2024 End: 03-07-2024 Evaluation and management of inpatient [facility] Start: 03-06-2024 End: 03-06-2024 Evaluation and management of inpatient [facility] Start: 02-29-2024 End: 02-29-2024 Evaluation and management of inpatient ASHLEY Clements Estefani [facility] Start: 02-29-2024 End: 02-29-2024 Admission to [facility] Phone Call Provider 4 [facility]Ad[facility] On [facility] Start: 02-27-2024 ambulatory [facility] Start: 02-27-2024 End: 02-27-2024 ambulatory [facility] Start: 02-14-2024 End: 02-14-2024 Orders Only Stephanie Berger MD PhD Work Phone: [facility] Comment on above: Xerostomia (Primary Dx) Start: 01-17-2024 End: 01-17-2024 ambulatory STEPHANIE BERGER [facility] Start: 01-17-2024 End: 01-17-2024 Office outpatient visit 15 minutes Stephanie Berger MD PhD Work Phone: [facility] Comment on above: Dry nose (Primary Dx ); Xerostomia; Allergic rhinitis, unspecified seasonality, unspecified trigger Start: 08-14-2023 End: 08-14-2023 Office outpatient visit 15 minutes Celso Garibay DO Work Phone: [facility] Comment on above: Atherosclerosis of c oronary artery of kotlik heart without angina pectoris, unspecified vessel or lesion type; History of coronary artery bypass graft; Ischemic cardiomyopathy; Essential hypertension, benign Start: 06-18-2023 End: 06-18-2023 [facility] Start: 06-18-2023 End: 06-18-2023 Subsequent hospital visit by physician Gaby Tello DO Work Phone: [facility] Comment on above: Post-menopausal blee ding; Inclusion cyst Start: 05-24-2023 Rx Renewal Ashley Grigsby Work Phone: [facility] 250 DO Work Phone: Start: 05-17-2023 Patient encounter procedure Ashley Grigsby Work Phone: [facility] 250 DO Work Phone: Start: 05-15-2023 ambulatory ASHLEY GRIGSBY [facility] Start: 12-12-2022 End: 12-12-2022 ambulatory MD Ashley Grigsby Work Phone: [facility] Work Phone: Start: 12-12-2022 End: 12-12-2022 Patient encounter procedure MD Ashley Grigsby Work Phone: [facility] Work Phone: Start: 11-20-2022 End: 11-20-2022 ambulatory Imad Asaad Other [facility] [employer] Other Start: 11-20-2022 Telephone encounter Imad Asaad [facility] Start: 11-10-2022 End: 11-10-2022 Patient encounter procedure MD Ashley Grigsby Work Phone: [facility] Work Phone: Start: 11-02-2022 End: 11-02-2022 Admission to same day surgery center MD Ashley Grigsby Work Phone: [facility] Work Phone: Start: 11-02-2022 End: 11-02-2022 ambulatory MD Ashley Grigsby Work Phone: [facility] Work Phone: Start: 11-01-2022 Telephone encounter Imad Asaad [facility] Start: 11-01-2022 End: 11-01-2022 Admission to same day surgery center MD Ashley Grigsby Work Phone: [facility] Work Phone: Start: 11-01-2022 End: 11-01-2022 ambulatory MD Ashley Grigsby Work Phone: [facility] Work Phone: Start: 10-24-2022 End: 10-24-2022 ambulatory Imad Asaad Other [facility] [employer] Other Start: 10-24-2022 [facility] visit new patient Imad Asaad [facility] Start: 10-16-2022 End: 10-17-[address] ASHLEY GRIGSBY Facility:[facility] Start: 10-09-2022 End: 10-10-[address] ASHLEY GRIGSBY Facility:[facility] Start: 10-05-2022 Rx Renewal Ashley Grigsby Work Phone: [facility] 250 DO Work Phone: Start: 10-04-2022 End: 10-06-[address] ASHLEY GRIGSBY Facility:[facility] Start: 09-19-2022 End: 09-20-[address] DOCTOR PATEL Facility:[facility] Start: 08-15-2022 Office outpatient vi sit 15 minutes Ashley Grigsby Work Phone: [facility] 250 DO Work Phone: Start: 08-15-2022 Patient encounter procedure Ashley Grigsby Work Phone: [facility] 250 DO Work Phone: Start: 06-02-2022 End: 06-02-2022 Patient encounter procedure Santiago Guzman LORENA [facility] Start: 05-31-2022 Rx Renewal Ashley Grigsby Work Phone: [facility] 250 DO Work Phone: Start: 02-07-2022 End: 02-07-2022 Patient encounter procedure Ashley Grigsby MD Work Phone: [facility] Start: 02-07-2022 End: 02-07-2022 Subsequent hospital visit by physician Ashley Grigsby MD Work Phone: [facility] Laboratory Comment on above: Women's annual routi ne gynecological examination Start: 11-21-2021 Rx Renewal Ashley Grigsby Work Phone: [facility] 250 DO Work Phone: Start: 08-17-2021 Office outpatient vi sit 15 minutes Ashley Grigsby Work Phone: [facility] 250 DO Work Phone: Start: 08-19-2019 End: 08-19-2019 Subsequent hospital visit by physician Ashley CABEZAS [facility] Comment on above: Well female exam wit h routine gynecological exam Start: 08-29-2017 Ambulatory PROVIDER UNKNOWN Facili ty:[id number] Start: 08-27-2017 Ambulatory PROVIDER UNKNOWN Facili ty:[id number] Start: 08-27-2017 Ambulatory Facility:[id number] Procedures Date Procedure Procedure Detail Performing Clinician Start: 11-26-2024 Radex wrist 2 views Raji RINALDI Work Phone: Start: 08-18-2024 Plain chest X-ray Ashley Grigsby [...] Cystoscopic removal of ureteric stent JENNIFER MARTINO Start: 09-13-2017 H/O: surgery S/P nasal septoplasty Stephanie Berger MD PhD Work Phone: Appendectomy Ashley M Hoy Work Phone: Appendectomy Santiago CARRILLO Bypass of stomach Santiago MONTES DE OCA TERS Cataract surgery Ashley M H oy Work [...] History of coronary artery bypass graft Ashley Clements Hoy Work Phone: History of coronary artery bypass grafting History of coronary artery bypass graft Celso Pam Phoenix DO Work Phone: History of coronary artery bypass grafting History of coronary artery bypass graft Celso Garibay DO Work Phone: History of coronary artery bypass grafting History of coronary artery bypass graft Celso Garibay DO Work Phone: Kidney operation Ashley M H oy Work Phone: Operation on nose Ashley M Hoy Work Phone: Peripheral neuroplasty Deaconl as M Hoy Work Phone: Repair of inguinal hernia Pa kylie CARRILLO Total colonoscopy Ashley Grigsby Work Phone: Plan of Treatment Date Care Activity Detail Author Start: 11-02-2032 Screening for malignant neoplasm of colon [facility] Start: 02-07-2027 Screening for malignant neoplasm of cervix [facility] Start: 08-18-2025 End: 08-18-2025 Patient encounter procedure 08/18/2025 11:20 AM EST Office Visit [facility] [address] [address] Celso Garibay DO [address] [facility] [address] [place] [address] [facility] Start: 08-03-2025 End: 08-13-2025 Alanine aminotransferase [Enzymatic activity/volume] in Serum or Plasma by With P-5'-P Alanine Aminotransferase Lab Routine Hyperlipidemia, unspecified hyperlipidemia type Expected: 08/03/2025 (Approximate), Expires: 08/13/2025 [facility] Service Area Work Phone: Comment on [...] Patient encounter procedure 03/17/2025 2:40 PM EDT Off ice Visit [facility] [address] [facility] [address] [place] [id number] Celso Garibay DO [address] [facility] [address] [place] [address] [facility] Start: 02-28-2025 Adult BMI Screening Adult BMI Screening [facility] Start: 02-07-2025 Screening for malignant neoplasm of cervix [facility] Start: 01-16-2025 Adult BMI Screening Adult BMI Screening [facility] Start: 01-16-2025 Tobacco Screening Tobacco Screening [facility] Start: 01-15-2025 End: 01-15-2025 Patient encounter procedure 01/15/2025 4:00 PM EDT Off ice Visit [facility] [place] [address] Stephanie Berger MD PhD [address] [facility] [address] [place] [address] [facility] Start: 11-26-2024 End: 11-26-2024 Patient encounter procedure 11/26/2024 1:00 PM EST Off ice Visit [facility] [address] [place] [phone] Raji Byrd PA [address] [facility] [address] [place] [address] Acute pain of right wrist (Primary Dx) [facility] Comment on above: Acute pain of right wrist (Primary Dx) Start: 08-19-2024 Screening for malignant neoplasm of cervix [facility] Start: 08-19-2024 [facility] Start: 08-19-[address] [facility] Start: 08-19-2024 [facility] Start: 08-18-2024 Hospital admission [facility] Start: 08-15-2024 Screening for malignant neoplasm of breast Mammogram [facility] Start: 08-13-2024 End: 08-13-2024 Patient encounter procedure 08/13/2024 11:30 AM EST Office Visit [facility] [address] [place] [address] Celso Garibay DO [address] [place] [address] [facility] Start: 2024 RSV High Risk: (Elderly (60+) or Population) (1 - Risk 60-74 years 1-dose series) RSV High Risk: (Elderly (60+) or Population) (1 - Risk 60-74 years 1-dose series) [facility] Start: 06-01-2024 COVID-19 Vaccine ( season) COVID-19 Vaccine ( season) [facility] Start: 06-01-2024 Influenza vaccination Influenza Vaccine [facility] [employer] [facility] Start: 03-06-2024 End: 03-06-2024 Admission to same day surgery center 03/06/2024 11:30 AM EDT - 03/06/2024 12:45 PM EDT Surgery [facility] [address] [place] [address] Danielle Cesar MD [address] [place] [address] ESOPHAGOGASTRODUODENOSCOPY DIAGNOSTIC [89327 (CPT )] [facility] Comment on above: ESOPHAGOGASTRODUODENOSCOPY DIAGNOSTIC [4 3235 (CPT )] Start: 03-06-2024 End: 03-06-2024 Esophagogastroduodenoscopy transoral diagnostic ESOPHAGOGASTRODUODENOSCOPY DIAGNOSTIC ACUTE RECURRING PANCREATITIS, EPIGASTRIC PAIN 03/06/2024 11:30 AM EDT [facility] Start: 03-06-2024 End: 03-06-2024 Esophagoscopy flexible transoral ultrasound exam ENDOSCOPIC ULTRASOUND UPPER ACUTE RECURRING PANCREATITIS, EPIGASTRIC PAIN 03/06/2024 11:30 AM EDT [facility] Start: 03-06-2024 Subsequent hospital visit by physician 03/06/2024 11:30 AM EDT Hospital Encounter [facility] [address] [place] [address] Danielle Cesar MD [address] [place] [address] [facility] Start: 02-14-2024 Depression Screen Depression Screen [facility] Start: 02-12-2024 End: 08-14-2024 Alanine [...] Lab Routine Atherosclerosis of coronary artery of kotlik heart without angina pectoris, unspecified vessel or lesion type Ischemic cardiomyopathy Expected: 02/12/2024 (Approximate), Expires: 08/14/2024 [facility] Work Phone: Comment on above: Expected: 02/12/2024 (Approximate), Expi res: 08/14/2024 Start: 02-12-2024 End: 08-14-2024 Lipid 1996 panel - Serum or Plasma Lipid Panel Lab Routine Atherosclerosis of coronary artery of kotlik heart without angina pectoris, unspecified vessel or lesion type Expected: 02/12/2024 (Approximate), Expires: 08/14/2024 [facility] Service Area Work Phone: Comment on above: Expected: 02/12/2024 (Approximate), Expi res: 08/14/2024 Start: 08-14-2023 FUV, Provider: Celso Garibay, Status: Julio, Time: 3:00 PM FUV, Provider: Celso Garibay, Status: Julio, Time: 3:00 PM [facility] 250 DO Work Phone: Start: 07-28-2023 Screening for malignant neoplasm of breast Breast cancer screen [facility] Start: 07-24-2023 Screening for malignant neoplasm of breast Mammogram [facility] Start: 07-03-2023 End: 07-03-2023 Patient encounter procedure 07/03/2023 4:45 PM EDT Off ice Visit [facility] [address] [place] [address] Gaby Phillips, DO [address] [place] [address] post-op BA 05/16 [facility] Comment on above: post-op BA 05/16 Start: 06-18-2023 End: 06-18-2023 Hysteroscopy bx endometrium&/polypc w/wo d&c DILATATION AND CURETTAGE HYSTEROSCOPY Post-menopausal bleeding Inclusion cyst 06/18/2023 2:01 PM EDT [facility] Start: 06-01-2023 COVID-19 Vaccine ( season) COVID-19 Vaccine () [employer] Start: 02-13-2023 End: 02-13-2023 Patient encounter procedure 02/13/2023 Office Visit Obstetrics and Gynecology Gaby Phillips, DO [address] [place] [address] [facility] Start: 12-12-2022 [facility] Start: 11-02-2022 [facility] Start: 11-01-2022 [facility] Start: 08-19-2022 Screening for malignant neoplasm of cervix Pap smear [facility] Start: 08-15-2022 FUV, Provider: Celso Garibay, Status: Pen, Time: 3:00 PM FUV, Provider: Celso Garibay, Status: Pen, Time: 3:00 PM [place] [address] DO Work Phone: Start: 08-03-2022 Lipid panel Lipids [facility] Start: 09-26-2021 COVID-19 Vaccine (4 - Pfizer series) COVID-19 Vaccine (4 - Pfizer series) [facility] Start: 06-01-2019 Influenza vaccination Flu vaccine (#1) [place], [place] Start: 05-09-2018 Pneumococcal Vaccine: Pediatrics (0 [...] 2014 Breast cancer screen Breast cancer screen [place], [place] Start: 2014 Colon cancer screen colonoscopy Colon cancer screen colonoscopy [place], [place] Start: 2014 Shingles Vaccine (1 of 2) Shingles Vaccine (1 of 2) [facility] Start: 08-26-2009 MMR Vaccines (1 of 1 - Standard series) MMR Vaccines (1 of 1 - Standard series) [facility] Start: 2009 Screening for malignant neoplasm of colon [facility] Start: 1999 Diabetes screen Diabetes screen [facility] Start: 1986 DTaP/Tdap/Td Vaccines (1 - Tdap) DTaP/Tdap/Td Vaccines (1 - Tdap) [facility] Start: 1985 Cervical cancer screen Cervical cancer screen [place], [place] Start: 1985 Screening for malignant neoplasm of cervix [facility] Start: 1983 DTaP,Tdap and Td Vaccines (1 - Tdap) DTaP,Tdap and Td Vaccines (1 - Tdap) [facility] Start: 1983 DTaP/Tdap/Td vaccine (1 - Tdap) DTaP/Tdap/Td vaccine (1 - Tdap) [facility] Start: 1982 Adult BMI Follow Up Plan Adult BMI Follow Up Plan [facility] Start: 1982 Diabetes mellitus screening Diabetes Screening [facility] Start: 1982 Hepatitis C screening [facility] Start: 1979 HIV screen HIV screen [place], [place] Start: 1979 HIV screening HIV screen [facility] Start: 1976 Depression Screen Depression Screen [facility] Start: 1976 Depression Screening Depression Screening [facility] Start: 1975 DTaP/Tdap/Td vaccine (1 - Tdap) DTaP/Tdap/Td vaccine (1 - Tdap) [place], [place] Start: 1974 Lipid panel Lipids [facility] Start: 1974 Lipid screen Lipid screen [place], [place] Start: 1964 Hepatitis B vaccine (1 of 3 - 3-dose series) Hepatitis B vaccine (1 of 3 - 3-dose series) [facility] Start: 1964 Hepatitis B Vaccines (1 of 3 - 3-dose series) Hepatitis B Vaccines (1 of 3 - 3-dose series) [facility] Start: 1964 Hepatitis C screen Hepatitis C screen [facility] [place] Start: 1964 HIV screening HIV Screening [facility] Start: 1964 Lipid panel Lipid Panel [facility] Start: 1964 Screening for malignant neoplasm of colon [facility] Start: 1964 Yearly Adult Physical Yearly Adult Physical [facility] Actin smooth muscle IgG Ab [Units/volume] in Serum [facility] Alpha 1 antitrypsin [Mass/volume] in Serum or Plasma [facility] Alpha 1 antitrypsin phenotyping [Identifier] in Serum or Plasma by Immunofixation [facility] Ceruloplasmin [Mass/ volume] in Serum or Plasma [facility] End: 08-19-2019 Cytopathology procedure, preparation of smear, genital source PAP SMEAR Lab Routine Well female exam with routine gynecological exam 1 Occurrences starting 08/19/2019 until 08/19/2019 [facility] on [facility]: 1 Occurrences starting 08/19/2019 until 08/19/2019 End: 02-07-2022 Cytopathology procedure, preparation of smear, genital source PAP SMEAR Lab Routine Women's annual routine gynecological examination 1 Occurrences starting 02/07/2022 until 02/07/2022 [place] Phone: Comment on above: 1 Occurrences starting 02/07/2022 until 02/07/2022 Glucose measurement estimated from glycated hemoglobin [facility] Hepatitis A virus Ab [Presence] in Serum by Immunoassay [facility] Hepatitis B core ant ibody measurement [facility] Hepatitis B virus khanna rface Ab [Presence] in Serum [facility] Hepatitis B virus khanna rface Ag [Presence] in Serum or Plasma by Immunoassay [facility] Hepatitis C virus Ig G Ab [Presence] in Serum or Plasma by Immunoassay [facility] Homogenous nuclear A b pattern [Titer] in Serum [facility] IgG [Mass/volume] in Serum or Plasma [facility] End: 06-18-2023 INITIATE PACU OXYGEN THERAPY PROTOCOL Initiate PACU Oxygen Therapy Protocol Respiratory Care Routine Continuous until discontinued starting 06/18/2023 [facility] [employer] Comment on above: Continuous until discontinued starting 0 06/18/2023 Lipoprotein a [Moles /volume] in Serum or Plasma [facility] Mitochondria M2 IgG Ab [Units/volume] in Serum [facility] Nuclear Ab [Titer] in Serum [facility] Oxygen therapy [Mini mum Data Set] Initiate Oxygen Therapy Protocol Respiratory Care Routine As Needed until discontinued starting 06/18/2023 [facility] Comment on above: As Needed until discontinued starting Oxygen therapy [[facility] mum Data Set] Initiate Oxygen Therapy Protocol Respiratory Care Routine As Needed until discontinued starting 06/18/2023 [facility] Comment on above: As Needed until discontinued starting Patient Education Hemorrhoids (DC) [facility] Work Phone: End: 06-18-2023 , urine POCT , urine POCT Point of Care Testing Routine One Time for 1 Occurrences starting 06/18/2023 until 06/18/2023 [facility] Comment on above: One Time for 1 Occurrences starting 06/01 until 06/18/2023 Surgical Pathology Surgical Path ology Lab Routine Post-menopausal bleeding Inclusion cyst Release Upon Ordering for 1 Occurrences starting 06/18/2023 [facility] Comment on above: Release Upon Ordering for 1 Occurrences starting 06/18/2023 [facility] Immunizations Immunization Date Immunization Notes Care Provider Sudhakar ponce 06-01-2024 influenza, unspecifi ed formulation JENNIFER MARTINO [facility] 06-05-2023 influenza virus vacc ine, unspecified formulation Stephanie Berger MD PhD Work Phone: [employer] 06-16-2022 influenza, injectabl e, quadrivalent, preservative free Ashley Grigsby Work Phone: [facility] DO Work Phone: 06-16-2022 zoster vaccine recombinant Ashley [facility]igsby [facility] DO Work Phone: 08-01-2021 Pfizer-BioNTech COVI D-19 Vacc 30 MCG/0.3ML Intramuscular Suspension Ashley M Hoy Work Phone: [facility] 250 DO Work Phone: 06-30-2021 influenza virus vacc ine, unspecified formulation Ashley M Hoy Work Phone: [facility] 250 DO Work Phone: 06-03-2021 Influenza, injectabl e, Madin Renetta Canine Kidney, preservative free, quadrivalent Ashley M Hoy Work Phone: [facility] 250 DO Work Phone: 01-29-2021 Pfizer-Bio[employer] COVI D-19 Vacc 30 MCG/0.3ML Intramuscular Suspension Ashley M Hoy Work Phone: [facility] 250 DO Work Phone: 01-08-2021 Pfizer-[employer] COVI D-19 Vacc 30 MCG/0.3ML Intramuscular Suspension Ashley Hoy Work Phone: [facility] 2020 influenza, injectabl e, quadrivalent, preservative free Ashley M Hoy Work Phone: [facility] 250 DO Work Phone: 07-23-2018 influenza, injectabl e, quadrivalent, preservative free Ashley M Hoy Work Phone: [facility] 250 DO Work Phone: 07-26-2017 Influenza, injectabl e, Madin Renetta Canine Kidney, preservative free, quadrivalent Ashley M Hoy Work Phone: [facility] 250 DO Work Phone: 05-09-2017 pneumococcal polysaccharide vaccine, 23 valent Ashley M Hoy Work Phone: [facility] 250 DO Work Phone: 07-03-2015 influenza, seasonal, injectable, preservative free Ashley Grigsby Work Phone: [facility] 250 DO Work Phone: 06-15-2014 influenza, seasonal, injectable Ashley Grigsby Work Phone: [facility] DO Work Phone: 07-29-2009 novel influenza-H1N1 -09, preservative-free, injectable Ashley Grigsby [facility] Work Phone: Payers Date Payer Category Payer Self-pay [id number] [phone] [id number] 2022 [facility] Member Subscriber Plan / Payer (Effective 2022-Present) Name: Jose Alberto Saleem Relation to Subscriber: Self Name: Jose Alberto Saleem Payer ID: Not on file Type: Not on file Address: [place] [id number] 2022 [facility] [id number] 2022 Unknown 2019 Unknown [employer] [place] xxxxxxxxxxxxxxx 2019-Present [address] [place] [address] xxxxxxxxxxxxxxx [id number] 1964 Unknown [id number] 2.16.840.1.300941.3.579.2.5 93 1964 Unknown [id number] 2.16.840.1.923897.3.579.2.5 93 1964 Unknown [id number] 2.16.840.1.567814.3.579.2.5 93 1964 Unknown [id number] 2.16.840.1.598443.3.579.2.5 93 1964 Unknown [id number] 2.16.840.1.895116.3.579.2.5 93 1964 Unknown [id number] 2.16.840.1.862640.3.579.2.1 73 1964 Unknown [id number] 2.16.840.1.712339.3.579.2.1 75 1964 Unknown [id number] 2.16.840.1.231000.3.579.2.1 286 1964 Unknown [id number] 2.16.840.1.800774.3.579.2.1 286 1964 Unknown [id number] 2.16.840.1.875984.3.579.2.1 286 1964 Unknown [id number] 2.16.840.1.714790.3.579.2.1 286 1964 Unknown [id number] 2.16.840.1.679110.3.579.2.1 286 1964 Unknown [id number] 2.16.840.1.322769.3.579.2.1 286 1964 Unknown [id number] 2.16.840.1.839208.3.579.2.1 286 1964 Unknown [id number] 2.16.840.1.111596.3.579.2.7 27 1964 Unknown [id number] 2.16.840.1.931817.3.579.2.7 27 1964 Unknown [id number] 2.16.840.1.566903.3.579.2.7 27 1964 Unknown [id number] 2.16.840.1.296932.3.579.2.1 286 1964 Unknown [id number] 2.16.840.1.798506.3.579.2.1 244 1964 Unknown [id number] 2.16.840.1.583778.3.579.2.1 244 1964 Unknown [id number] 2.16.840.1.631162.3.579.2.1 259 1964 Unknown [id number] 2.16.840.1.237121.3.579.2.1 259 1959 Unknown [id number] 1959 Unknown [id number] Unknown [id number] 2.16.840.1.083915.3.579.2.5 31 Social History Date Type Detail Facility Start: 08-19-2019 End: 09-13-2023 Tobacco [facility] status [facility] Start: 08-19-2019 End: 11-26-2024 Alcohol intake [facility] Start: 1965 [facility]igned At [facility] Start: 06-18-2023 End: 11-26-2024 No alcohol use No alcohol use -[place] [address] DO Work Phone: Start: 08-19-2019 End: 09-13-2023 Tobacco use and exposure Smokeless tobacco non-user [employer] Work Phone: Start: 06-18-2023 End: 11-26-2024 Sex Assigned At Female [facility] Start: 1965 Sex Assigned At Female F [facility] Patient Health Questionnaire 9 item (PHQ-9) total score [Reported] 0 [facility] [employer] Start: 08-14-2023 End: 09-05-2024 Alcohol intake Lifetime non-drinker (finding) [facility] Work Phone: Start: 08-04-2023 End: 09-05-2024 Exposure to SARS-CoV-2 (event) Not sure [facility] Start: 08-19-2024 Sex Female (finding) [facility] Start: 01-17-2024 End: 02-29-2024 Alcoholic beverage intake Current non-drinker of alcohol (finding) [employer] Start: 09-12-2023 Gender identity Identifies as female gender (finding) [facility] NEGATED: Highlighted row Denies Caffeine use Denies Caffeine use [facility] 250 DO Work Phone: Medical [...] BARD MULTI 6FR 22-32CM FDA Start: 04-24-2018 Tissue Alloderm Nonmesh 2x4cm - Sna - [id number] Start: 09-06-2017 Lens Iol Ultrase rt 17.0d - [id number] - [id number] Start: 11-14-2018 Sinus Implant Propel Mini - Sna - [id number] Start: 01-03-2018 Sinus Implant Augusta Alvarez - [id number] Start: 01-03-2018 Elena Restor [id number]_[id number] Start: 11-05-2018 Goals Date Patient Goal Desired Activity /State Functional Status Date Assessment Result Facility 08-05-2024 Functional Status N/A [facility] 04-10-2024 Functional Status N/A [facility] 06-02-2022 Functional Status N/A [facility] Clinical Notes 06-02-2022 to 12-12-2024 GENTRY Kearney - 11/26/2024 1:00 PM Trinh Garibay DO - 09/05/2024 9:20 AM ESTPatient InstructionsAttachments Note Date & Type Note Facility 12-12-2024 Note Attestation signed by Chauncey Kimble MD at 12/12/2024 3:31 PM I personally saw the patient with the resident/fellow on the same day of service. I discussed the findings and therapeutic plan with the resident/fellow and with the patient. I agree with the documentation. [facility] Gastroenterology New Patient Visit - [...] on for which she was admitted at [facility] and was management symptomatically. Patient reported since [...] healthy appearing mucosa. This was traversed. The ihuqh-vo-quwvxgz limb was characterized by healthy appearing mucosa. [...] Angina pectoris Atherosclerosis of coronary artery of kotlik heart without angina pectoris Cellulitis of right [...] Mother Gretta Hyperlipidemia Father Munoz Hyperlipidemia Brother [place] Heart attack Brother Ray SOCIAL HISTORY: Social History Tobacco Use Smoking status: Never Smokeless tobacco: Never Vaping Use Vaping status: Never Used Substance Use Topics Alcohol use: Never Drug use: Never ALLERGIES: Baclofen; Latex, natural rubber; Penicillins; Sulfa (sulfonamide antibiotics); Rosuvastatin; Sulfamethoxazole-trimethoprim; Fenofibrate; Fenofibrate micronized; Fluvastatin; Levofloxacin; Phenazopyridine; Simvastatin; Trimethoprim; and Tobramycin Current Med (more content not included)... [facility] 11-26-2024 History of Present illness Narrative Images from the original note were not included. HISTORY OF PRESENT ILLNESS: EST PT Jose Alberto Saleem is an 59 y.o. @ female. (EST W/JEWEL, NEW PROBLEM) RT WRIST - PT STATES A TOTE FELL OUT OF HER CLOSET AND LANDED ON HER ARM ~09/27/24 AND THEN HAD ANOTHER INCIDENT WHERE HER BROTHER WAS MOVING A BIG CHEST DOWN THE STAIRS AND SHE WENT TO HELP AND FELT A POP 10/08/24- [facility] TO [facility]; SENT TO ER XRAYS XRAY RT WRIST TODAY EPIC 11/26/24 XRAY [facility] RT FOREARM 10/11/24 SPLINT DOING WELL TODAY- WEARING SPLINT- SOME STIFFNESS- PT STATES SYMPTOMS HAVE IMPROVED GREATLY HX RT CTR 01/11/22- DR MORSE ALLERGIES: Allergies Allergen Reactions Baclofen Other and Shortness of breath bradypnea Latex Anaphylaxis and Shortness of breath Sulfa Antibiotics Hives and Shortness of breath Other Reaction(s): Other (See Comments) Sulfamethoxazole-Trimethoprim Hives Fenofibrate GI intolerance Other reaction(s): (Louis) 08/08/2011 Other reaction(s): Intolerance elevated liver enzymes elevated liver enzymes Fluvastatin PT TOLERATES CRESTOR Levofloxacin Other Reaction(s): Other (See Comments), thrush thrush Phenazopyridine GI intolerance Trimethoprim Other reaction(s): Hives Penicillins Hives and Rash Tobramycin Rash HOME MEDICATIONS: Current Outpatient Medications Medication Instructions aspirin 81 mg, Oral, Daily atorvastatin (LIPITOR) 20 mg, Oral, Daily calcium 200 MG tablet Oral cevimeline (EVOXAC) 30 mg, Oral, 3 times daily citalopram (CELEXA) 20 mg, Oral hydroCHLOROthiazide (HYDRODIURIL) 12.5 mg, Oral, Daily, 1/2 tab RABEprazole (ACIPHEX) 20 mg, Oral, 2 times daily, Do not crush, chew, or split. tamsulosin (FLOMAX) 0.4 mg, Oral, Daily PHYSICAL EXAM: Hand/Wrist Musculoskeletal Exam Inspection Right Right hand/wrist inspection is normal. Erythema: none Ecchymosis: none Edema: none Deformity: none Wrist - prior incision: carpal tunnel Incision: well-healed Palpation Right Right wrist palpation is normal. Wrist tenderness to palpation comment: DENIES PAIN TO SNUFF BOX OR SCAPHO-LUNATE. Palpation additional comments: Denies bony tenderness. Prior symptoms at location of possible intersection syndrome. No pain with syndesmotic compression. Range of Motion Right Wrist Right wrist range of motion is normal. Active Extension: 80 Passive Extension: 80 Active Flexion: 80 Passive Flexion: 80 Active Pronation: 90 Passive Pronation: 90 Active Supination: 90 Passive Supination: 90 Strength Right Hand Right hand strength is normal. Right Wrist Right wrist strength is normal. Extension: 5/5. Flexion: 5/5. Radial deviation: 5/5. Ulnar deviation: 5/5. Pronation: 5/5. Supination: 5/5. Neurovascular Right Right neurovascular exam is normal. Radial pulse: normal and 2+ Capillary refill: <3 sec and brisk Ulnar nerve sensory distribution: normal Median nerve sensory distribution: normal Superficial radial nerve sensory distribution: normal Special Tests Right DRUJ instability: negative TFCC load test: negative General Constitutional: appears stated age Labored breathing: no Neurological: alert and oriented x3 Skin: intact Lymphadenopathy: none Physical Exam Vitals: There is no height or weight on file to calculate BMI. Tobacco Use: Low Risk (11/26/2024) Patient History Smoking Tobacco Use: Never Smokeless Tobacco Use: Never Passive Exposure: Not on file Alcohol Use: Not on file IMAGING: xray 10/11/24 (R) Forearm: no acute fracture [facility] Results - Imaging: - X-ray of the right wrist: - No evidence of fracture - Mild degenerative changes at the wrist Procedures Orders Placed This Encounter Procedures XR wrist 1 or 2 views right Order Specific Question: Is the patient ? Answer: No Order Specific Question: Reason for exam: Answer: PAIN ASSESSMENT: ICD-10-CM 1. Acute pain of right wrist M25.531 XR wrist 1 or 2 views right 2. Tendonitis of wrist, right M77.8 Assessment & Plan 1. Right wrist pain. Her symptoms have generally improved, with the soreness and bruising nearly fully resolved. The pain was located at the site of a potential intersection syndrome, likely due to holding a heavy dresser abruptly. An x-ray performed today at the bedside showed no evidence of fracture but indicated mild degenerative changes at the wrist. She is advised to discontinue the use of her wrist brace and continue performing wrist flexion and extension exercises. Topical diclofenac gel may be applied to the area of prior soreness. If symptoms worsen or new symptoms develop, she will contact the office for reevaluation. Questions answered in laymen terms at the bedside. The diagnosis, home exercise plan and any ongoing restrictions/ recommendations reviewed. If unable to be reached in office, I recommend evaluation at nearest Emergency Room if any symptoms worsened or new symptoms develop for requiring urgent evaluation. documented in this encounter [facility] 09-05-2024 History of Present illness Narrative Subjective Jose Alberto Saleem is a 59 y.o. female Chief Complaint Follow-up 59-year-old female returns following acute coronary syndrome, with subsequent two-vessel intervention of the vein graft to the diagonal branch with long 3.5 x 38 mm [place] stent and kotlik distal circumflex for in-stent restenosis with 3 x 18 mm [place] stent. LV function is preserved. WHEELER-LAD remains patent, kotlik right coronary vein graft right coronary is chronically occluded (known from the past) and collateralized via left coronary system, and vein graft to the OM 2 is also occluded chronically however kotlik circumflex is intact. Patient is otherwise stable [...] Atherosclerosis of coronary artery bypass graft of kotlik heart without angina pectoris 2. S/P PTCA (percutaneous transluminal coronary angioplasty) 3. History of coronary artery bypass graft 4. Ischemic cardiomyopathy 5. Essential hypertension 6. Mixed hyperlipidemia 7. BMI 30.0-30.9,adult 8. Statin intolerance Scribe Attestation By signing my name below, I, Jasmyne Kelsea Watts LPN attest that this documentation has been prepared [...] be sent through Care Everywhere.Heart Healthy Diet (Lao)documented in this encounter [facility] Work Phone: 08-19-2024 Evaluation note Diagnosis Onset Date Resolution Atypical chest pain acute Novem rocky 2023 11:18pm [facility] Work Phone: 1(884) 983-930011-13-2024 History of Present illness Narrative* Celso Pam Phoenix, - 08/13/2024 11:30 AM EST Subjective Jose Alberto Saleem is a 59 y.o. female Chief Complaint Annual Exam 59-year-old female returns for annual visit, she just got back from [facility] from vacation last evening and [...] has a history of remote CABG, remote FL, remote PCI's before and after her CABG [...] Assessment/Plan 1. Atherosclerosis of coronary artery of kotlik heart without angina pectoris, unspecified vessel or lesion type Follow Up In Cardiology 2. History of coronary artery bypass graft Follow Up In Cardiology 3. Essential hypertension, benign 4. Hyperlipidemia, unspecified hyperlipidemia type 5. Acute pancreatitis, unspecified complication status, unspecified pancreatitis type ([facility]) Scribe Attestation By signing my name below, Bettie Farmer LPN, Scribe attest that this documentation has been [...] [facility] Work Phone: 1(719) 585-643611-13-2024 Instructions* Patient Instructions* Bettie Ugalde LPN - [...] [facility] Work Phone: 1(263) 669-927011-05-2024 Hospital Discharge instructions Patient Education 08/05/2024 12:20:10 Kidney Stones, Suwm-rn-Gefj Kidney Stones Kidney stones are rock-like masses [...] Follow these instructions at home: Medicines Take tepa-lnt-bmzffvj and prescription medicines only as told by [...] provider. Document Revised: 05/11/2023 Document Reviewed: 05/11/2023 [employer] Patient Education 2023 [employer] Follow Up Care 06/06/2024 11:10:21 With:JENNIFER MARTINO PA-C, TRUDYL Address: When:1 year [facility] 11-05-2024 NotePatient Education Urology Kidney Stones Kidney [...] these instructions at home: Medicines ??? Take mdmv-vbr-nfurfei and prescription medicines only as told by [...] provider. Document Revised: 05/11/2023 Document Reviewed: 05/11/2023 [employer] Patient Education ? 2023 [employer] 04-10-2024 Hospital Discharge instructions Patient Education 04/10/2024 16:08:23 Kidney Stones, Nfue-ng-Elfj Kidney Stones Kidney stones are rock-like masses [...] Follow these instructions at home: Medicines Take owti-aqe-gompndd and prescription medicines only as told by [...] provider. Document Revised: 05/22/2022 Document Reviewed: 05/22/2022 [employer] Patient Education 2022 [employer] Follow Up Care 03/10/2024 08:31:33 With:SALENA REDDY, JENNIFER López, URL Address: [address] [address] When:3 months [facility] NotePatient Education Urology Kidney Stones Kidney [...] these instructions at home: Medicines ? Take bhdo-tbj-fwzllhm and prescription medicines only as told by [...] provider. Document Revised: 05/22/2022 Document Reviewed: 05/22/2022 [employer] Patient Education ? 2022 [employer] 02-29-2024 Instructions* Pre-Procedure Instructions - Aracely Boyd RN - 02/29/2024 10:00 AM EDT Your surgery/procedure is scheduled at [facility] on 03/06/2024 at 1130 Arrival Time 0930 [facility] Address: [address] [place] [address]. [place] [address] Park in Parking lot located on [facility]. Report to the Entrance B. Check in at the information desk the surgery. The waiting room located on the second floor. If you have any questions prior to surgery, please call Pre-Admission Clinic at [phone] between 7:30 am and 4:30 pm Sunday through Sunday. If you have questions the morning of surgery, please call the Pre-op Department at [phone]. Notify your SURGEON if you develop any illness such as a cold, cough, fever, sore throat, vomiting or are hospitalized between now and your surgery. CONTINUE TO TAKE YOUR MEDICATIONS PRESCRIBED. DO NOT STOP YOUR PRESCRIBED MEDICATIONS UNLESS DIRECTED BY YOUR PRESCRIBING PHYSICIAN Take the following medications the morning of surgery with a sip of water: Celexa Weight loss medications: NA Take inhalers as prescribed the morning of surgery. . Blood thinners: Medications such as Coumadin, Heparin, Aspirin, Plavix, Eliquis, Pradaxa) Please contact your physician regarding a stop/hold date for these medications. Diabetics: If you take insulin, contact your prescribing doctor for instructions on how to manage this the night before and the morning of surgery. Non-steriodal Anti-Inflammatory Drugs (NSAIDS)- Stop 3 days prior to surgery unless otherwise directed by your surgeon. Vitamins/Herbal Products: You may continue to take your prescribed vitamins such as potassium, iron, vitamin B, vitamin C, or multivitamin unless specifically instructed by your surgeon to stop. STOPtaking all herbal products/teas one week prior to your surgery. Marijuana: Stop marijuana 72 hours prior to surgery, stop CBD oil 48 hours prior to surgery. If you have been given bowel prep instructions by your surgeon, please call the surgeon's office with any questions about these instructions. What do I do the day of Surgery? Age 2 through adult - Stop all solids by midnight, You may have clear liquids up to 2 hours before surgery, unless otherwise instructed by your surgeon. Clear liquids are: water, sports drinks such as Gatorade or G2, or apple juice. You may NOT have: tube feedings, dairy products, alcoholic beverages, orange juice, or any liquids with solids or pulp in it. If applicable, shower again with CHG soap the morning of your surgery. If you received a green plastic bracelet, bring it with you the day of surgery and your nurse will put it on you. In order to help prevent infection post-operatively, you may be asked to use a CHG mouthwash when you arrive to the Pre-op area. Your nurse will provide instruction the morning of. What do I need to do to prepare for surgery? If you will be going home the same day as your surgery, arrange for an adult over [address] Riding in a bus or taxi by yourself is not permitted. You should not smoke or drink alcohol 24 hours before your surgery. Alcohol thins the blood and may cause bleeding problems during surgery. Smoking increases the risk of breathing problems after surgery. If you have been assigned JONATHAN Education by your surgeon's office, please complete this education prior to your surgery. For questions regarding JONATHAN education, reach out to your surgeon's office. If you have been given a prescription for occupational, physical or speech therapy, please set up these appointments before your procedure. If you would like to schedule therapy at a [facility] facility, please call [address] [place] [address] ([phone]). Do not use lotions, creams, powders, perfume, make up, cologne or after-shaves day of surgery. Remove ALL jewelry including wedding rings, body piercings,hair extensions that contain metal, nailpolish, make-up, and contact lens. You may brush your teeth the morning of surgery, but do not swallow the water. Wear your dentures and partial plates to the hospital (no adhesive). Shower the night the before. If applicable, use the CHG (chlorhexidine gluconate) soap or wipes What should I bring to the hospital? If you received a green plastic bracelet, bring it with you the day of surgery and your nurse will put it on you. Eyeglass or contact lens case If you will be spending the night, please bring personal care items and leave them in the car untilyou are taken to your room after surgery. Leave ALL valuables at home. If any of these instructions conflict with those you received from the surgeon, please seek clarification from your surgeon's office. DEEP BREATHING EXERCISES This exercise helps promote good air exchange and helps to prevent pneumonia after surgery. Breathe in slowly and deeply through the nose. Hold your breath for a few seconds and then exhale slowly through the mouth. Repeat this three times and then cough.Coughing helps to clear your lungs. If you have had a surgery with an incision into your abdomen or chest, press gently against your incision with a pillow or a folded blanket when you cough. Please be aware - it may not be mcclure to cough following some types of surgeries involving the eyes,ears, sinuses and throat. Always follow your doctor's instructions. LEG EXERCISE These exercises help promote good circulation and help to prevent blood clots after surgery. Point your toes to the ceiling and then point them to the wall. Do this slowly about 15-20 times. You may also move your feet in circles. Do the exercise that is most comfortable for you. If you have had surgery involving your shoulder or arm, we recommend you move your fingers. PRACTICING We ask that you begin practicing these exercises before your surgery. After surgery try to do both exercises at least every 2 hours during the day and early evening. SURGICAL SITE INFECTION PREVENTION What is a Surgical Site Infection? Infection can happen to the area of the body where surgery is done. This is called a surgical site infection (SSI). A SSI does not happen very often. Can SSIs be treated? Antibiotics are used to treat SSI. Some patients may need another surgery to treat the infection. The doctor will discuss treatment options with you. What are some of the things that hospitals are doing to prevent SSIs? Soap and water or alcohol hand rub are used before and after caring for each patient. Special soap is used to clean surgery workers hands and arms just before the surgery. Masks, gowns, gloves and hair covers are worn during the surgery to keep the area clean. Hair in the surgery area may be removed with clippers (not razors). A special soap that kills germs is used to clean the skin at the surgery site. Antibiotics may be given before the surgery starts. What can you do to prevent SSIs? Before surgery: You may be asked to shower or bathe with a special soap that kills germs the night before and the day of surgery. Use the soap as you were told. If you smoke, stop or cut down. Ask your doctor about ways to quit. Do not shave near where you will have surgery. Shaving can irritate the skin and make it easier to get and infection. After surgery: Be sure that the doctors and nurses clean their hands before and after touching you. Be sure your family and friends clean their hands before and after visiting you. Do not be afraid to remind them. * Care for your wound at home as told by your doctor or nurse * Call your doctor right away if you have fever, redness, increased pain, or drainage at the surgery site. Further questions? Contact the doctor, nurse or the Infection Prevention and Control department if you have any questions. PATIENT RIGHTS AND RESPONSIBILITIES [facility], you have the right to: Receive medical care and be informed of who is taking care of you Be treated with dignity and respect Have a family member/customer counter representative of choice and your physician notified of your admission Receive information and actively participate in decisions about your care and treatment Refuse care, treatment and services Decide who may provide your support and speak for you Access denominational and spiritual services Participate in ethical issues and questions about your care Receive private and confidential care Have appropriate assessment and management of your pain Know guest visitation restrictions or limitations Have an advance directive Access protective services Consent or refuse to participate in research studies or production or recordings, films or other images Have resolution of your complaints Receive information of hospital charges and payment methods Patient/patient customer counter representative responsibilities are to: Provide information about health status to facilitate care, treatment and services Follow the treatment, plan, keep appointments and speak up when you do not understand the plan Respect the rights of other patients and healthcare personnel Follow organizational rules and regulations that support quality care and a safe environment Fulfill financial obligations as promptly as possible PATIENT RIGHTS AND RESPONSIBILITIES As a patient at [facility], you have the right to: Receive medical care and be informed of who is taking care of you Be treated with dignity and respect Have a family member/customer counter representative of choice and your physician notified of your admission Receive information and actively participate in decisions about your care and treatment Refuse care, treatment and services Decide who may provide your support and speak for you Access denominational and spiritual services Participate in ethical issues and questions about your care Receive private and confidential care Have appropriate assessment and management of your pain Know guest visitation restrictions or limitations Have an advance directive Access protective services Consent or refuse to participate in research studies or production or recordings, films or other images Have resolution of your complaints Receive information of hospital charges and payment methods Patient/patient customer counter representative responsibilities are to: Provide information about health status to facilitate care, treatment and services Follow the treatment, plan, keep appointments and speak up when you do not understand the plan Respect the rights of other patients and healthcare personnel Follow organizational rules and regulations that support quality care and a safe environment Fulfill financial obligations as promptly as possible Surgical Site Infection Prevention What is a Surgical Site Infection? Infection can happen to the area of the body where surgery is done. This is called a surgical site infection (SSI). A SSI does not happen very often. Can SSIs be treated? Antibiotics are used to treat SSI. Some patients may need another surgery to treat the infection. The doctor will discuss treatment options with you. What are some of the things that hospitals are doing to prevent SSIs? Soap and water or alcohol hand rub are used before and after caring for each patient. Special soap is used to clean surgery workers hands and arms just before the surgery. Masks, gowns, gloves and hair covers are worn during the surgery to keep the area clean. Hair in the surgery area may be removed with clippers (not razors). A special soap that kills germs is used to clean the skin at the surgery site. Antibiotics may be given before the surgery starts. What can you do to prevent SSIs? Before surgery: You may be asked to shower or bathe with a special soap that kills germs the night before and the day of surgery. Use the soap as you were told. If you smoke, stop or cut down. Ask your doctor about ways to quit. Do not shave near where you will have surgery. Shaving can irritate the skin and make it easier to get and infection. After surgery: Be sure that the doctors and nurses clean their hands before and after touching you. Be sure your family and friends clean their hands before and after visiting you. Do not be afraid to remind them. * Care for your wound at home as told by your doctor or nurse * Call your doctor right away if you have fever, redness, increased pain, or drainage at the surgery site. Further questions? Contact the doctor, nurse or the Infection Prevention and Control department if you have any questions. [facility]05-31-2024 Miscellaneous Notes* Pre-Procedure Instructions - Aracely Boyd RN - 02/29/2024 10:00 AM EDT Your surgery/procedure is scheduled at [facility] on 03/06/2024 at 1130 Arrival Time 0930 [facility] Address: [address] [place] [address] Park in Parking lot located on [facility]. Report to the Entrance B. Check in at the information desk the surgery. The waiting room located on the second floor. If you have any questions prior to surgery, please call Pre-Admission Clinic at [phone] between 7:30 am and 4:30 pm Sunday through Sunday. If you have questions the morning of surgery, please call the Pre-op Department at [phone]. Notify your SURGEON if you develop any illness such as a cold, cough, fever, sore throat, vomiting or are hospitalized between now and your surgery. CONTINUE TO TAKE YOUR MEDICATIONS PRESCRIBED. DO NOT STOP YOUR PRESCRIBED MEDICATIONS UNLESS DIRECTED BY YOUR PRESCRIBING PHYSICIAN Take the following medications the morning of surgery with a sip of water: Celexa Weight loss medications: NA Take inhalers as prescribed the morning of surgery. . Blood thinners: Medications such as Coumadin, Heparin, Aspirin, Plavix, Eliquis, Pradaxa) Please contact your physician regarding a stop/hold date for these medications. Diabetics: If you take insulin, contact your prescribing doctor for instructions on how to manage this the night before and the morning of surgery. Non-steriodal Anti-Inflammatory Drugs (NSAIDS)- Stop 3 days prior to surgery unless otherwise directed by your surgeon. Vitamins/Herbal Products: You may continue to take your prescribed vitamins such as potassium, iron, vitamin B, vitamin C, or multivitamin unless specifically instructed by your surgeon to stop. STOPtaking all herbal products/teas one week prior to your surgery. Marijuana: Stop marijuana 72 hours prior to surgery, stop CBD oil 48 hours prior to surgery. If you have been given bowel prep instructions by your surgeon, please call the surgeon's office with any questions about these instructions. What do I do the day of Surgery? Age 2 through adult - Stop all solids by midnight, You may have clear liquids up to 2 hours before surgery, unless otherwise instructed by your surgeon. Clear liquids are: water, sports drinks such as Gatorade or G2, or apple juice. You may NOT have: tube feedings, dairy products, alcoholic beverages, orange juice, or any liquids with solids or pulp in it. If applicable, shower again with CHG soap the morning of your surgery. If you received a green plastic bracelet, bring it with you the day of surgery and your nurse will put it on you. In order to help prevent infection post-operatively, you may be asked to use a CHG mouthwash when you arrive to the Pre-op area. Your nurse will provide instruction the morning of. What do I need to do to prepare for surgery? If you will be going home the same day as your surgery, arrange for an adult over [address] Riding in a bus or taxi by yourself is not permitted. You should not smoke or drink alcohol 24 hours before your surgery. Alcohol thins the blood and may cause bleeding problems during surgery. Smoking increases the risk of breathing problems after surgery. If you have been assigned JONATHAN Education by your surgeon's office, please complete this education prior to your surgery. For questions regarding JONATHAN education, reach out to your surgeon's office. If you have been given a prescription for occupational, physical or speech therapy, please set up these appointments before your procedure. If you would like to schedule therapy at a [facility] facility, please call [phone] ([phone]). Do not use lotions, creams, powders, perfume, make up, cologne or after-shaves day of surgery. Remove ALL jewelry including wedding rings, body piercings,hair extensions that contain metal, nailpolish, make-up, and contact lens. You may brush your teeth the morning of surgery, but do not swallow the water. Wear your dentures and partial plates to the hospital (no adhesive). Shower the night the before. If applicable, use the CHG (chlorhexidine gluconate) soap or wipes What should I bring to the hospital? If you received a green plastic bracelet, bring it with you the day of surgery and your nurse will put it on you. Eyeglass or contact lens case If you will be spending the night, please bring personal care items and leave them in the car untilyou are taken to your room after surgery. Leave ALL valuables at home. If any of these instructions conflict with those you received from the surgeon, please seek clarification from your surgeon's office. DEEP BREATHING EXERCISES This exercise helps promote good air exchange and helps to prevent pneumonia after surgery. Breathe in slowly and deeply through the nose. Hold your breath for a few seconds and then exhale slowly through the mouth. Repeat this three times and then cough.Coughing helps to clear your lungs. If you have had a surgery with an incision into your abdomen or chest, press gently against your incision with a pillow or a folded blanket when you cough. Please be aware - it may not be mcclure to cough following some types of surgeries involving the eyes,ears, sinuses and throat. Always follow your doctor's instructions. LEG EXERCISE These exercises help promote good circulation and help to prevent blood clots after surgery. Point your toes to the ceiling and then point them to the wall. Do this slowly about 15-20 times. You may also move your feet in circles. Do the exercise that is most comfortable for you. If you have had surgery involving your shoulder or arm, we recommend you move your fingers. PRACTICING We ask that you begin practicing these exercises before your surgery. After surgery try to do both exercises at least every 2 hours during the day and early evening. SURGICAL SITE INFECTION PREVENTION What is a Surgical Site Infection? Infection can happen to the area of the body where surgery is done. This is called a surgical site infection (SSI). A SSI does not happen very often. Can SSIs be treated? Antibiotics are used to treat SSI. Some patients may need another surgery to treat the infection. The doctor will discuss treatment options with you. What are some of the things that hospitals are doing to prevent SSIs? Soap and water or alcohol hand rub are used before and after caring for each patient. Special soap is used to clean surgery workers hands and arms just before the surgery. Masks, gowns, gloves and hair covers are worn during the surgery to keep the area clean. Hair in the surgery area may be removed with clippers (not razors). A special soap that kills germs is used to clean the skin at the surgery site. Antibiotics may be given before the surgery starts. What can you do to prevent SSIs? Before surgery: You may be asked to shower or bathe with a special soap that kills germs the night before and the day of surgery. Use the soap as you were told. If you smoke, stop or cut down. Ask your doctor about ways to quit. Do not shave near where you will have surgery. Shaving can irritate the skin and make it easier to get and infection. After surgery: Be sure that the doctors and nurses clean their hands before and after touching you. Be sure your family and friends clean their hands before and after visiting you. Do not be afraid to remind them. * Care for your wound at home as told by your doctor or nurse * Call your doctor right away if you have fever, redness, increased pain, or drainage at the surgery site. Further questions? Contact the doctor, nurse or the Infection Prevention and Control department if you have any questions. PATIENT RIGHTS AND RESPONSIBILITIES As a patient at [facility], you have the right to: Receive medical care and be informed of who is taking care of you Be treated with dignity and respect Have a family member/customer counter representative of choice and your physician notified of your admission Receive information and actively participate in decisions about your care and treatment Refuse care, treatment and services Decide who may provide your support and speak for you Access denominational and spiritual services Participate in ethical issues and questions about your care Receive private and confidential care Have appropriate assessment and management of your pain Know guest visitation restrictions or limitations Have an advance directive Access protective services Consent or refuse to participate in research studies or production or recordings, films or other images Have resolution of your complaints Receive information of hospital charges and payment methods Patient/patient customer counter representative responsibilities are to: Provide information about health status to facilitate care, treatment and services Follow the treatment, plan, keep appointments and speak up when you do not understand the plan Respect the rights of other patients and healthcare personnel Follow organizational rules and regulations that support quality care and a safe environment Fulfill financial obligations as promptly as possible PATIENT RIGHTS AND RESPONSIBILITIES As a patient at [facility], you have the right to: Receive medical care and be informed of who is taking care of you Be treated with dignity and respect Have a family member/customer counter representative of choice and your physician notified of your admission Receive information and actively participate in decisions about your care and treatment Refuse care, treatment and services Decide who may provide your support and speak for you Access denominational and spiritual services Participate in ethical issues and questions about your care Receive private and confidential care Have appropriate assessment and management of your pain Know guest visitation restrictions or limitations Have an advance directive Access protective services Consent or refuse to participate in research studies or production or recordings, films or other images Have resolution of your complaints Receive information of hospital charges and payment methods Patient/patient customer counter representative responsibilities are to: Provide information about health status to facilitate care, treatment and services Follow the treatment, plan, keep appointments and speak up when you do not understand the plan Respect the rights of other patients and healthcare personnel Follow organizational rules and regulations that support quality care and a safe environment Fulfill financial obligations as promptly as possible Surgical Site Infection Prevention What is a Surgical Site Infection? Infection can happen to the area of the body where surgery is done. This is called a surgical site infection (SSI). A SSI does not happen very often. Can SSIs be treated? Antibiotics are used to treat SSI. Some patients may need another surgery to treat the infection. The doctor will discuss treatment options with you. What are some of the things that hospitals are doing to prevent SSIs? Soap and water or alcohol hand rub are used before and after caring for each patient. Special soap is used to clean surgery workers hands and arms just before the surgery. Masks, gowns, gloves and hair covers are worn during the surgery to keep the area clean. Hair in the surgery area may be removed with clippers (not razors). A special soap that kills germs is used to clean the skin at the surgery site. Antibiotics may be given before the surgery starts. What can you do to prevent SSIs? Before surgery: You may be asked to shower or bathe with a special soap that kills germs the night before and the day of surgery. Use the soap as you were told. If you smoke, stop or cut down. Ask your doctor about ways to quit. Do not shave near where you will have surgery. Shaving can irritate the skin and make it easier to get and infection. After surgery: Be sure that the doctors and nurses clean their hands before and after touching you. Be sure your family and friends clean their hands before and after visiting you. Do not be afraid to remind them. * Care for your wound at home as told by your doctor or nurse * Call your doctor right away if you have fever, redness, increased pain, or drainage at the surgery site. Further questions? Contact the doctor, nurse or the Infection Prevention and Control department if you have any questions. documented in this encounterWilson HealthPeel [id number] Note Attestation signed by Danielle Cesar MD at 02/27/2024 2:30 PM I personally saw and examined the patient on the same date of service as resident/fellow . I discussed the findings and therapeutic plan with the resident/fellow . I agree with the documentation, except for any edits/updates below. [facility] Gastroenterology New Patient Visit - [...] pectoris (CMS/HCC) Atherosclerosis of coronary artery of [place] heart without angina pectoris Cellulitis of right [...] Mother Gretta Hyperlipidemia Father Munoz Hyperlipidemia Brother [place] Heart attack Brother Ray SOCIAL HISTORY: Social [...] negative HEENT: negative RESPI (more content not included)...[facility] 01-17-2024 History of Present illness Narrative* Stephanie Berger MD PhD - 01/17/2024 4:00 PM EDT [facility] [address] [facility] [id number] SUBJECTIVE: Patient ID ([id number]): Jose Alberto Saleem is a 58 y.o. female presents today for Medication refills. Chief Complaint Patient presents with Med Refill HPI: Jose Alberto is seen For medication refill on estradiol nasal Evoxac and Flonase. She has a historyof having had septoplasty as well as endoscopic sinus surgery and is doing well from that. She has somewhat of a nasal dryness as well as history of xerostomia. HISTORY: Past Medical History: Diagnosis Date Cataract Coronary artery disease GERD (gastroesophageal reflux disease) Hyperlipidemia Hypertension Kidney stone Kidney stones Myocardial infarction ([facility]) 2013 5 stents Visual impairment Past Surgical History: Procedure Laterality Date APPENDECTOMY BIOPSY SALIVARY GLAND FS N/A 09/06/2017 Performed by Stephanie Berger MD at [facility] CARPAL TUNNEL RELEASE right CHOLECYSTECTOMY CORONARY ARTERY BYPASS GRAFT x4 ENDOSCOPIC FUNCTIONAL SINUS SURGERY Bilateral 01/03/2018 Performed by Stephanie Berger MD at [facility] ENDOSCOPIC SURGERY SINUS Bilateral 01/03/2018 Performed by Stephanie Berger MD at [facility] EXCISION MASS UPPER EXTREMITY Right 11/19/2019 Performed by Stephanie Morse DO at [facility] HERNIA REPAIR LAPAROSCOPIC GASTRIC BYPASS LITHOTRIPSY OVARIAN CYST REMOVAL PHACO KELMAN I IMPLANT INTRAOCULAR LENS Left 11/14/2018 Performed by Nisha Stoll MD at [facility] PHACO KELMAN I IMPLANT INTRAOCULAR LENS Right 11/05/2018 Performed by Nisha Stoll MD at [facility] RELEASE CARPAL TUNNEL Right 01/11/2022 Performed by Stephanie Morse DO at [facility] RELEASE CARPAL TUNNEL [place] CPT 37542 Left 07/19/2022 Performed by Stephanie Morse DO at [facility] RESECTION SUBMUCOSAL Bilateral 09/06/2017 Performed by Stephanie Berger MD at [facility] SEPTOPLASTY SEPTOPLASTY N/A 09/06/2017 Performed by Stephanie Berger MD at [facility] STENT INSERTION LACRIMAL DUCT EYE Right 09/06/2017 Performed by Stephanie Berger MD at [facility] URETERAL STENT PLACEMENT Family History Problem Relation Age of Onset Heart disease Mother Anemia Mother Hypertension Mother Endometrial cancer Mother Peripheral vascular disease Father Coronary artery disease Father COPD Father Breast cancer Neg Hx Social History Socioeconomic History Marital status: Spouse name: Not on file Number of children: Not on file Years of education: Not on file Highest education level: Not on file Occupational History Not on file Tobacco Use Smoking status: Never Smokeless tobacco: Never Vaping Use Vaping status: Never Used Substance and Sexual Activity Alcohol use: No Drug use: No Sexual activity: Defer Other Topics Concern Coffee No Tea No Carbonated Beverages Yes Chocolate No Social History Narrative Not on file Social Determinants of Health Financial Resource Strain: Not on file Food Insecurity: No Food Insecurity (10/04/2022) Hunger Screening Food Insecurity - Worry: Never True Food Insecurity - Inability: Never True Transportation Needs: Not on file Physical Activity: Not on file Stress: Not on file Social Connections: Not on file Interpersonal Safety: Not on file Housing Instability: Not on file Allergies Allergen Reactions Latex Anaphylaxis Baclofen Other (See Comments) bradypnea Fenofibrate Micronized Other reaction(s): Intolerance elevated liver enzymes Levofloxacin Other (See Comments) thrush Penicillins Hives Phenazopyridine Hcl Nausea And Vomiting Rosuvastatin Other (See Comments) Elevated liver enzymes, pt cannot take this in addition with fenofibrate Sulfa (Sulfonamide Antibiotics) Hives Tobramycin Rash Current Outpatient Medications Medication Sig Dispense Refill acetaminophen (TYLENOL EXTRA STRENGTH) 500 mg tablet Take 2 tablets (1,000 mg total) by mouth every6 (six) hours as needed for pain. aspirin 81 mg Take 1 tablet (81 mg total) by mouth in the morning. calcium carbonate (OS-ARLEY) 600 mg (1,500 mg) tablet Take 500 mg by mouth 3 (three) times a day withmeals. cevimeline (EVOXAC) 30 mg capsule TAKE 1 CAPSULE 4 TIMES DAILY 360 capsule 3 docusate sodium (COLACE) 100 mg capsule Take 1 capsule (100 mg total) by mouth in the morning and 1capsule (100 mg total) before bedtime. famotidine (PEPCID) 20 mg tablet Take 1 tablet (20 mg total) by mouth in the morning and 1 tablet (20 mg total) before bedtime. 20 tablet 0 fluticasone (FLONASE) 50 mcg/actuation nasal spray Administer 2 sprays into each nostril daily. 16 g 11 hydroCHLOROthiazide (HYDRODIURIL) 12.5 mg tablet Take 0.5 tablets (6.25 mg total) by mouth daily. mpyuxhcw-oxxi-VL-calcium &mins (THERAGRAN-M) 9 mg iron-400 mcg tablet Take 1 tablet by mouth inthe morning. ondansetron ODT (ZOFRAN ODT) 4 mg disintegrating tablet Dissolve 1 tablet (4 mg total) on tongue every 8 (eight) hours as needed for nausea for up to 10 doses. 10 tablet 0 tamsulosin (FLOMAX) 0.4 mg capsule Take 1 capsule (0.4 mg total) by mouth in the morning. cholecalciferol, vitamin D3, (VITAMIN D3) 5,000 units capsule Take 10,000 Units by mouth 4 (four) times a week. (Patient not taking: Reported on 01/17/2024) NYSTOP powder (Patient not taking: Reported on 01/17/2024) RABEprazole (ACIPHEX) 20 mg EC tablet Take 20 mg by mouth 2 (two) times a day. (Patient not taking:Reported on 01/17/2024) sod kpnjo-ftqzyb-inzvnf bottle (NEILMED SINUS RINSE COMPLETE) packet with rinse device nasal solution Administer 1 packet into each nostril daily. (Patient not taking: Reported on 07/19/2022) 60 packet 0 No current facility-administered medications for this visit. REVIEW OF SYSTEMS: Review of Systems Constitutional: Negative for chills and fever. HENT: Negative for congestion, ear discharge, ear pain, postnasal drip, sinus pressure, sinus pain and sore throat. Eyes: Negative for redness. Respiratory: Negative for shortness of breath. Cardiovascular: Negative for chest pain. Gastrointestinal: Negative for nausea and vomiting. Skin: Negative for rash. Neurological: Positive for headaches. Negative for dizziness. Psychiatric/Behavioral: Negative for confusion. Data Reviewed: PHYSICAL EXAMINATION: Ht 161.3 cm (5' 3.5 ) Wt 78.5 kg (173 lb) BMI 30.16 kg/m Constitutional: Healthy, alert, cooperative, and in no distress and normal ablility to communicate . Voice normal quality. Head/Face: Normocephalic, without obvious abnormality, salivary glands normal, atraumatic, sinuses nontender, and facial nerve intact Eyes: No gross abnormalities., EOMI, no nystagmus, and no lid ptosis Ear: RIGHT: hearing normal, external ear normal, canal normal, and TM normal without fluid or infection LEFT: hearing normal, external ear normal, canal normal, and TM normal without fluid or infection Nose: External nose appears normal, septum midline, normal mucosa, normal turbinates, and no nasal polyps or masses Oral: normal teeth, normal lips, normal gums, normal hard palate, normal anterior tongue, and oral mucosa moist Oropharynx: normal-appearing mucosa, no pharyngitis, no exudate, tonsils surgically absent, and normal soft palate and uvula Nasopharynx: Deferred. Hypopharynx: deferred. Larynx: deferred. TMJ: no pain, crepitus, or trismus Neck:normal, supple, no adenopathy, thyroid normal in size, no nodules or tenderness, no neck masses palpable, and carotids normal Heart: Regular rate Respiration: No stridor, Normal respiratory effort. Neurologic: Grossly normal Alert Oriented X 3 Affect normal Cranial nerves 2 -12 grossly intact ASSESSMENT/PLAN: Xerostomia. Status post FES S. Nasal dryness Plan: Continue estradiol and versa base for nasal application. Refill Evoxac. Refill Flonase. Follow-up in ENT in 1 year. Provider Statement: Marleny BERGER MD PhD personally performed the services described in the documentation as described by the above named scribe in my presence. It is both accurate and complete at the time of final signature. Stephanie Berger MD, PhD Counseling: The following elements of medical decision making were considered during this visit: History and physical. The patient was counseled regarding prognosis, risks and benefits of treatment options, impressions, importance of compliance with treatment and risk factor reductions. The patient verbalized understanding and agreement to the plan. Please note that parts of this chart were generated using voice recognition [employer] dictation software. Although every effort was made to ensure the accuracy of this automated practice business asst, some errors in practice business asst may have occurred. documented in this encounterWilson HealthSocialMeterTV [facility] [id number] History of Present illness Narrative* Celso Garibay, [...] has a history of remote CABG, remote FL, remote PCI's before and after her CABG [...] Assessment/Plan 1. Atherosclerosis of coronary artery of kotlik heart without angina pectoris, unspecified vessel or lesion type 2. History of coronary artery bypass graft 3. Ischemic cardiomyopathy 4. Essential hypertension, benign [facility] Work Phone: 1(573) 906-615311-14-2023 Instructions* Patient Instructions* Ej Braswell MA - [...] time of your visit. documented in [facility]Ohio [facility] Work Phone: 1(269) 922-234109-18-2023 Hospital Discharge instructions* Discharge Instructions* Lissa Ocasio [...] call if excessive. Call the office at [phone] ([place]) [phone] ([place]) for an appointment in 2 weeks. documented in [facility] History of Present illness Narrative* [...] EKG day of her pre-opvisit with Dr. Engel. documented in this encounterVC[facility]-20-2023 Evaluation note* Encounter Date Diagnosis Assessment Notes Treatment Notes Treatment Clinical Notes Nov, Elevated liver function tests (ICD-10 - R94.5) [facility] Other 02-02-2023 Procedure [facility]02-01-2023 Procedure [facility]01-24-2023 Evaluation note* Encounter Date Diagnosis Assessment Notes Treatment Notes Treatment Clinical Notes Oct, Abdominal pain (ICD-10 - R10.9) Oct, Common bile duct dilatation (ICD-10 - K83.8) Oct, Elevated liver enzymes (ICD-10 - R74.8) Oct, Constipation (ICD-10 - K59.00) Colonoscopy Start Miralax daily after colonoscopy. Titration dosing discussed with patient. Oct, Colon cancer screening (ICD-10 - Z12.11) [facility] Other 01-04-2023 NotePROGRESS NOTE NOTE DATE: 10/04/2022 CHIEF COMPLAINT: Abdominal pain. HISTORY OF PRESENT ILLNESS: The patient is a 57-year-old female with a history of dyslipidemia and gastric bypass surgery, who has been having increasing abdominal pain and flank pain. She was seen yesterday at the [facility] for epigastric and upper abdominal [...] Prophylaxis: Lovenox. DISPOSITION: Home when medically stable.[id number] Discharge instructions Patient Education 06/02/2022 08:51:52 Kidney Stones, Mcav-xd-Tlvz Kidney Stones Kidney stones are rock-like masses [...] Follow these instructions at home: Medicines Take wlgq-gir-xbipyfo and prescription medicines only as told by [...] 03/05/2009 Document Revised: 02/03/2020 Document Reviewed: 02/03/2020 [employer] Patient Education 2020 [employer]. Follow Up Care 05/27/2021 09:10:08 With:LORENA STRAUSS, Santiago Guzman, URL Address: [address] [place] [address]- When: Unknown [facility] evaluation + Plan note Future Appointments Appointment Date:06/01/2023 08:00:00 AM Scheduled Provider:Santiago CARRILLO MD Location:[facility] Appointment Type:URO Office Visit [facility] evaluation + Plan note Future Appointments Appointment Date:04/10/2024 03:00:00 PM Scheduled Provider:JENNIFER MARTINO PA-C Location:[facility] Appointment Type:URO Office Visit [facility] evaluation + Plan note Future Scheduled Tests Radiology* XR Abdomen 1 View 08/05/25 [facility] [place] evaluation note* Diagnosis Women's annual routine gynecological examination documented in this encounter [employer] Work Phone: evaluation noteNo assessment information [facility] Work Phone: Evaluation noteNo InformationNossm [facility] [employer] Other Evaluation note* Diagnosis Post-menopausal bleeding Postmenopausal bleeding Inclusion cyst Sebaceous cyst documented in this encounter [facility]* Diagnosis Atherosclerosis of coronary artery of kotlik heart without angina pectoris, unspecified vessel or lesion type 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 Ischemic cardiomyopathy Other specified forms of chronic ischemic heart disease Essential hypertension, benign documented in this encounter [facility] Work Phone: Evaluation note* Diagnosis Atherosclerosis of coronary artery of kot[place] heart without angina pectoris, unspecified vessel or lesion type 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 Essential hypertension, benign Hyperlipidemia, unspecified hyperlipidemia type Acute pancreatitis, unspecified complication status, unspecified pancreatitis type ([facility]) documented in this encounter [facility] Work Phone: Evaluation note* Diagnosis Atherosclerosis of coronary artery bypass graft of kotlik heart without angina pectoris S/P PTCA (percutaneous transluminal coronary angioplasty) Postsurgical percutaneous transluminal coronary angioplasty status 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 Ischemic cardiomyopathy Other specified forms of chronic ischemic heart disease Essential hypertension Unspecified essential hypertension Mixed hyperlipidemia BMI 30.0-30.9,adult Statin intolerance documented in this encounter [facility] Work Phone: Evaluation note* Diagnosis Dry nose- Primary Other diseases of nasal cavity and sinuses Xerostomia Disturbance of salivary secretion Allergic rhinitis, unspecified seasonality, unspecified trigger documented [facility] encounter [facility] Diagnosis Xerostomia- Primary Disturbance of salivary secretion documented in this encounter [facility]* Diagnosis Acute pain of right wrist- Primary Tendonitis of wrist, right documented in this encounter [facility] HealthcareHistory and physical note Author Evert Bruno [facility] November 01, 2022 12:40pm Note Date/Time November 01, 2022 1 2:40pm [facility] [address] [place] [address] Gastroenterology H&P Signed Patient: Jose Alberto Saleem MR#: [id number] : 1965 Acct:[id number] Age/Sex: 57 / F Adm Date: 3 Loc: Room: Type: [facility] Attending Dr: Evert Bruno MD Copies [...] <Electronically signed by Evert Bruno MD> 11/01/22 1249 [facility] Work Phone: History and physical note Author Evert Bruno [facility] November 02, 2022 2:14pm Note Date/Time November 02, 2022 2 :14pm [facility] [address] [place] [address] Gastroenterology H&P Signed Patient: Jose Alberto Saleem MR#: [id number] : 1965 Acct:[id number] Age/Sex: 57 / F Adm Date: 3 Loc: Room: Type: [facility] Attending Dr: Evert Bruno MD Copies [...] signed by Evert Bruno MD> 11/02/22 1414 [facility] Work Phone: History general Narrative - Reported* Type Description Date Medical History impaired fasting glucose Medical History heart disease, FL stents, CABG Medical History Hypertension Medical History hyperlipidemia Medical History baker doughnut esophogus Surgical History CABG remote history Surgical History gastric bypass 2017 Surgical History multiple kidney stones removed Surgical History appendectomy Surgical History cyst on ovarian removed Surgical History bilateral carpe tunnel surgery 2021 Surgical History cholecystectomy Hospitalization History see surgical hx [facility] Other Hospital course Narrative No data available for this section [facility] Discharge instructions Additional Instructions DISCHARGE INSTRUCTIONS [...] problems. -Follow up with PCP. -Office number [phone]. [facility] Work Phone: Hospital Discharge instructions Additional Instructions [...] problems. -Follow up with PCP. -Office number [phone]. [facility] Work Phone: Hospital Discharge instructions No data available for this section [facility] InstructionsNot on filedocumented in this encounter [facility] SystemInstructionsNot on filedocumented in this encounter [facility] SystemInstructionsNot on filedocumented in this encounter [facility] SystemProgress note No data available for this section [facility] reason for referral (narrative)* Consultation (Routine) - Authorized Specialty Diagnoses / Procedures Referred By Manfred t Referred To Contact Cardiology Diagnoses Atherosclerosis of coronary artery of kotlik heart without angina pectoris, unspecified vessel or lesion type History of coronary artery bypass graft Procedures Follow Up In Cardiology Celso Garibay DO [address] [place] [address] 2, [address] [address] Celso Garibay DO [address] [place] [address] 2, [address] [address] Referral ID Status Reason Start Date Expiration Date V isits Requested Visits Authorized [id number] Authorized 08/14/2023 08/13/2024 1 1 [facility] Work Phone: Summary Purpose Family History No [...] FoundDocuments on File Type Date Recorded 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 * [place] [employer] is class I * Recommendations, [...] She has a history of prior inferior FL, prior PCI with subsequent three-vessel CABG and [...] She has a history of prior inferior FL, prior PCI with subsequent three-vessel CABG and [...] section and content) DATE CREATED AUTHOR 03/26/2018 [facility] Healthcare DATE CREATED AUTHOR AUTHOR'S ORGANIZ ATION 03/26/2018 [facility] DATE CREATED AUTHOR AUTHOR'S ORGANIZ ATION 08/02/2022 [facility] dical Specialist DATE CREATED AUTHOR AUTHOR'S ORGANIZ ATION 08/17/2022 [facility] DATE CREATED AUTHOR AUTHOR'S ORGANIZ ATION 10/17/2022 [facility] DATE CREATED AUTHOR AUTHOR'S ORGANIZ ATION 06/23/2023 [facility] DATE CREATED AUTHOR AUTHOR'S ORGANIZ ATION 07/16/2023 [facility] DATE CREATED AUTHOR AUTHOR'S ORGANIZ ATION 01/19/2024 [facility] DATE CREATED AUTHOR AUTHOR'S ORGANIZ ATION 03/07/2024 [facility] DATE CREATED AUTHOR AUTHOR'S ORGANIZ ATION 08/06/2024 [facility] DATE CREATED AUTHOR AUTHOR'S ORGANIZ ATION 09/15/2024 [facility] DATE CREATED AUTHOR AUTHOR'S ORGANIZ ATION 10/15/2024 [facility] DATE CREATED AUTHOR AUTHOR'S ORGANIZ ATION 10/16/2024 [facility] DATE CREATED AUTHOR AUTHOR'S ORGANIZ ATION 12/01/2024 [facility] d[facility] Specialists EPIC DATE CREATED AUTHOR AUTHOR'S ORGANIZ ATION 12/15/2024 [facility] Care Teams (unrecognized sec tion and content) Team Status: Active Member Role Status Dates Ashley Grigsby MD Primary Care Provider Active Team Status: Active Member Role Status Dates Ashley Grigsby MD Primary Care Provider Active Start: August 18, 2024 Lynnette Chapman MD Emergency Provider Active Start: August 18, 2024 Donis Arroyo DO Admit Provider, Atte nding Provider Active Start: August 18, 2024 Team Status: Inactive Member Role Status Dates Ashley Grigsby MD Primary Care Provider Active Evert Bruno MD Attending Provider Active Bed And Breakfast Cook Relationship Specialty Start Date End Date Ashley Grigsby MD [address] [place] [address] PCP - General Family Medicine 08/19/19 Bed And Breakfast Cook Relationship Specialty Start Date End Date Ashley Grigsby MD [address] [place] [address] PCP - General Family Medicine 08/19/19 Bed And Breakfast Cook Relationship Specialty Start Date End Date Ashley Grigsby MD [address] [place] [facility] [address] PCP - General 08/17/21 Bed And Breakfast Cook Relationship Specialty Start Date End Date Ashley Grigsby MD [address] [place] [facility] [address] PCP - General 08/17/21 Bed And Breakfast Cook Relationship Specialty Start Date End Date Ashley Grigsby MD [address] [place] [address] PCP - General 08/17/21 Anita Hammonds, big data analytics leadCore Winder 08/22/24 Bed And Breakfast Cook Relationship Specialty Start Date End Date Ashley Grigsby MD [address] [place] [facility] [place] [facility] [address] PCP - General 02/22/17 Bed And Breakfast Cook Relationship Specialty Start Date End Date Ashley Grigsby MD [address] [place] [address] PCP - General 02/22/17 Bed And Breakfast Cook Relationship Specialty Start Date End Date Ashley Grigsby MD [address] [place] [address] PCP - General 02/22/17 Bed And Breakfast Cook Relationship Specialty Start Date End Date Ashley Grigsby MD [address] [place] [phone] PCP - General Family Medicine 09/13/23 Bed And Breakfast Cook Relationship Specialty Start Date End Date Ashley Grigsby MD [address] [place] [address] PCP - General Family Medicine 09/13/23 REASON FOR VISIT (unrecogniz ed section and content) Specialty Diagnoses / Procedures Referred By Manfred t Referred To Contact Diagnoses Post-menopausal bleeding Inclusion cyst Post-menopausal bleeding [N95.0] Inclusion cyst [L72.0] Procedures GA HYSTEROSCOPY BX ENDOMETRIUM&/POLYPC W/WO D&C GA DESTRUCTION BENIGN LESIONS UP TO 14 DILATATION AND CURETTAGE HYSTEROSCOPY-REMOVAL OF INCLUSION CYST Gaby Phillips, DO [address] [place] [address] [facility] [address] [place] [address] Referral ID Status Reason Start Date Expiration Date Visits Re quested Visits Authorized [id number] 1 1 Reason Comments Annual Exam 1yr Specialty Diagnoses / Procedures Referred By Manfred flynn Referred To Contact Cardiology Diagnoses Atherosclerosis of coronary artery of kotlik heart without angina pectoris, unspecified vessel or lesion type History of coronary artery bypass graft Procedures Follow Up In Cardiology Celso Garibay, [address] [address] Phone: tel: fax: Celso Garibay, [address] [address] Phone: tel: fax: Referral ID Status Reason Start Date Expiration Date V isits Requested Visits Authorized [id number] Authorized 08/14/2023 08/13/2024 1 1 Reason Comments Follow-up [facility] discharge 08/22 Reason Comments Med Refill Reason Comments Pain Ordered Prescriptions (unrec ognized section and content) [...] Comment: Switch to gravity)1433 (Restarted - Provider: OTNOIEL Fragoso CRNA) PRN Medication Order 06/16/2023 06/17/2023 [...] BE BASED ON THE PRIMARY CLINICAL RECORDS. [employer] provides no warranty or guarantee of the accuracy or completeness of information in this document.
--- OUTSIDE RECORDS SUMMARY | 2025-01-02 18:31 | XMS_ITS | CCD ---
Author Organization [facility] Care Team Providers Care Bag Mender Name Role Phone UNKNOWN, PROVIDER Unavailable Unavailable ASHLEY GRIGSBY Unavailable Unavailable UNKNOWN, PROVIDER Unavailable Unavailable ASHLEY GRIGSBY Unavailable Unavailable Ashley Grigsby Primary Care Provider Ashley Grigsby Unavailable Unavailable Unavailable Ashley Grigsby MD Primary Care Provider [phone] Unavailable Unavailable Ashley Grigsby Primary Care Physician DR CELSO GARIBAY Admitting [...] Unavailable MD Ashley Grigsby Primary Care Provider [phone] MD Evert Bruno Attending Provider Evert Bruno Unavailable MD Ashley Grigsby Primary Care Provider [phone] MD Evert Bruno Attending Provider Ashley Grigsby MD Primary Care Provider GABY PHILLIPS Admitting Unavail able GABY PHILLIPS Attending Unavail able DANIELEstefaniASHLEY Primary Care Unavailable SEB ASHLEY Clements Primary Care Unavailable Ashley Grigsby MD Primary Care Provider [phone] STEPHANIE BERGER Attending Unavailable ASHLEY GRIGSBY M [...] Care Provider Lynnette Chapman MD Emergency Provider Donis Arroyo DO Admit Provider [phone] Donis Arroyo DO Attending Provider Anita [...] Unavailable Ashley Grigsby MD Primary Care Provider [phone] Ashley Grigsby MD Primary Care Provider [phone] RAJI BYRD Attending Unavailable RAJI BYRD Referring Unavailable DANIELLE CESAR Attending Unavailable CHAUNCEY KIMBLE Attending Unavailable Allergies Allergy Classification Reported Allergen(s) Allergy Type Date of Onset Reaction(s) Facility (20 sources) Baclofen; Translations: [Baclofen TABS] Drug Allergy 017 Other (See Comments), Shortness of breath [place], [place] (20 sources) Latex; Translations: [LATEX] Propensity to adverse reactions to drug 006 Anaphylaxis, Shortness Of Breath, Anaphylaxis (disorder) [place], [place] (16 sources) Penicillins; Translations: [penicillins] Propensity to adverse reactions to drug 006 Hives, Anaphylaxis (disorder) [place] (3 sources) rosuvastatin Drug Allergy 019 [place], [place] (20 sources) Sulfamethoxazole / Trimethoprim; Translations: [Bactrim TABS] Drug Allergy 019 [place], [place] (11 sources) natural latex rubber Allergy to substance (finding) Shortness of breath [facility] [employer] y 250 DO Work Phone: (11 sources) Penicillins; Translations: [Penicillins] Allergy to drug (finding) [facility] Work Phone: (20 sources) rosuvastatin; Translations: [Crestor TABS] Drug Allergy 017 Elevated liver enzymes level (finding), Other, Other (See Comments) [facility] (16 sources) Sulfonamides (Antibiotic); Translations: [Sulfa Drugs] Allergy to drug (finding) [facility] (20 sources) levoFLOXacin; Translations: [levofloxacin] Drug Allergy 017 Other (See Comments), Candidiasis (disorder) 9+ Work Phone: (8 sources) Phenazopyridine; Translations: [PHENAZOPYRIDINE HCL] Drug Allergy Nausea And Vomiting 9+ Work Phone: (3 sources) Simvastatin; Translations: [SIMVASTATIN] Drug Allergy 9+ Work Phone: (5 sources) Sulfonamides (Antibiotic) Propensity to adverse reactions to drug Other (See Comments), Hives, Shortness of breath 9+ (12 sources) Tobramycin; Translations: [tobramycin] Drug Allergy 023 Eruption of skin (disorder), Rash [facility] (1 source) Baclofen Drug Allergy [facility] (1 source) Latex Drug allergy (disorder) [facility] (5 sources) levoFLOXacin; Translations: [Levaquin] Drug Allergy thrush [facility] (1 source) Penicillins Drug allergy (disorder) [facility] (1 source) rosuvastatin Drug Allergy [facility] (1 source) Sulfonamides (Antibiotic) Drug allergy (disorder) [facility] (11 sources) rosuvastatin; Translations: [ROSUVASTATIN] Drug Allergy 017 Gastrointestinal Upset [facility] (5 sources) Sulfamethoxazole; Translations: [sulfamethoxazole] Drug Allergy 023 Hives, Hives, ([place]) 08/08/2011 [facility] (10 sources) Trimethoprim; Translations: [trimethoprim] Drug Allergy 023 Hives, Hives, ([place]) 08/08/2011 [facility] (6 sources) Fenofibrate; Translations: [FENOFIBRATE] Drug Allergy 009 ([place]) 08/08/2011 [facility] (3 sources) Penicillin Drug Allergy ([place]) 08/08/2011 [facility] Other (9 sources) Substance with sulfonamide structure and antibacterial mechanism of action (substance) Drug allergy 06-14-2 006 Shortness of breath, Hives [facility] Other (7 sources) Penicillins Propensity to adverse reactions to drug Hives, Rash [facility] (4 sources) Tobramycin Drug Allergy [address] [facility] (7 sources) Fenofibrate; Translations: [FENOFIBRATE MICRONIZED] Drug Allergy 009 [facility] (7 sources) Sulfonamides (Antibiotic); Translations: [SULFA (SULFONAMIDE ANTIBIOTICS)] Propensity to adverse reactions to drug (disorder) Unknown Reaction [facility] (1 source) Baclofen Drug Allergy [facility] (1 source) Fenofibrate Drug Allergy [facility] (1 source) Latex Drug allergy (disorder) [facility] (1 source) levoFLOXacin Drug Allergy [facility] (1 source) Penicillins Drug allergy (disorder) [facility] (3 sources) Baclofen Drug Allergy 017 Other, Shortness of breath [facility] (3 sources) Fenofibrate Drug Allergy 009 GI intolerance [facility] (4 sources) fluvastatin; Translations: [FLUVASTATIN] Drug Allergy [facility] (3 sources) Latex Allergy to substance Anaphylaxis, Shortness of breath [facility] (3 sources) Penicillins Drug Intolerance 006 Hives, Rash [facility] (4 sources) Phenazopyridine; Translations: [PHENAZOPYRIDINE] Drug Allergy GI intolerance [facility] (1 source) natural latex rubber; Translations: [LATEX, NATURAL RUBBER] Propensity to adverse reactions to drug (disorder) [facility] Medications Current Medications Medication Drug [...] 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 05 mg/inh Nasal [place] Refill(s) 0 Start Date: 04/30/20 Status: Ordered Start: 10-24-2017 End: 02-29-2024 take 2 spray(s) nasal route once daily fluticasone (FLONASE) 50 mcg/actuation nasal spray Indications: Chronic pansinusitis Administer 2 sprays into each nostril daily. 16 g 11 10/24/2017 02/29/2024 Discontinued (Duplicate Listing) fluticasone 0.05 mg/inh Nasal [place] (3 sources) Start: 04-30-2020 fluticasone 0.05 mg/inh Nasal [place] Refill(s) 0 Start Date: 04/30/20 Status: Ordered [...] day(s), # 45 tab(s), Refills(s) 3, Pharmacy: [facility], 160, cm, 06/02/22 8:29:00 EDT, [...] Daily, # 90 tab(s), Refills(s) 3, Pharmacy: [facility], 160, cm, 05/27/21 8:19:00 EDT, [...] Refills(s) 11, Pharmacy: [facility] #[id number], 160, cm, 04/10/24 15:13:00 EDT, Height/Length Dosing, [...] 2 PO) Take by mouth 0 Active mzzcmapw-mpen-NF-arley cium &mins (THERAGRAN-M) 9 mg iron-400 mcg tablet (3 sources) zjufctun-zbyx-EN - calcium &mins (THERAGRAN-M) 9 mg iron-400 [...] mouth 2 times a day. 0 Active Zbkoxnluupjx-Lyh-Rwio-Fa-Vit K (Bariatric Multivitamins) 45 mg iron- 800 mcg-120 mcg Capsule (4 sources) Start: 11-01-2022 take 1 capsule by mouth twice daily Yvcwjjndqeaa-Vwr-Shsd-Fa-Vit K (Bariatric Multivitamins) 45 mg iron- 800 mcg-120 mcg Capsule Active 1 CAP PO Twice daily November 01, 2022 1:00am Start: 11-01-2022 take 1 capsule by mo [facility] twice daily Eccupnzuuuwh-Jhc-Iwzy-Fa-Vit K (Bariatri c Multivitamins) 45 mg iron- [...] tablet Indications: Atherosclerosis of coronary artery of mechoopda heart without angina pectoris, unspecified vessel or [...] powder 04/19/2018 Active omega-3 acid ethyl esters (assisted) 1000 mg oral capsule (3 sources) take [...] April 21, 2018 11:01pm polyethylene glycol 3350 496482 mg / potassium chloride 2970 mg / sodium bicarbonate 6740 mg / sodium chloride 5860 mg / sodium sulfate 78106 mg powder for oral solution (3 sources) [...] mouth 3 times a day. Active sod wbnwg-rqoaou-ahrkju bottle (NEILMED SINUS RINSE COMPLETE) packet with rinse device nasal solution (3 sources) Start: 09-13-2017 take 1 dose nasal route once daily sod zdcnf-gfuhzm-vkcvyz bottle (NEILMED SINUS RINSE COMPLETE) packet with [...] day(s), # 180 cap(s), Refills(s) 3, Pharmacy: [facility], 160, cm, 05/27/21 8:19:00 EDT, Height/Length Dosing, 61, kg, 05/27/21 8:19:00 EDT, Weight Dosing Start Date: 03/14/22 Stop Date: 03/09/23 Status: Ordered Start: 04-17-2018 take 1 capsule by mo ut once daily tamsulosin (Flomax) 0.4 mg 24 hr capsule Take 1 capsule (0.4 mg) by mouth once daily. 10/26/2020 Active take 1 capsule by mo [facility] every twenty-four hours in the morning tamsulosin [...] Refills(s) 11, Pharmacy: [facility] #[id number], 160, cm, 04/10/24 15:13:00 EDT, Height/Length Dosing, 74, kg, 04/10/24 15:13:00 EDT, Weight Dosing Start Date: 04/10/24 Stop Date: 04/05/25 Status: Ordered vit C,P-Vs-toqoj-lutein-zeaxan (PRESERVISION AREDS-2) 250-90-40-1 mg capsule (1 source) vit C,W-Vg-roduf-lutein-z eaxan (PRESERVISION AREDS-2) 250-90-40-1 mg capsule Take [...] a day for 30 day(s) Active vitamins A,C,Y-ookm-govcak (1 source) Start: 08-19-2024 vitamins A,C,F-jlpw-stvuce Active PO August 19, 2024 12:00am Zyrtec [...] ascorbic acid 226 mg / beta carotene 46436 unt / cuprous oxide 0.8 mg / [...] / neomycin 3.5 mg/ml / polymyxin b 01841 unt/ml ophthalmic suspension (3 sources) Aminoglycoside Antibacterial, Polymyxin-class Antibacterial, Corticosteroid Start: 06-13-2021 take 2 drop(s) into the eye(s) four times daily Neomycin-Polymyxin- HC 3.5-36570-5 Ophthalmic Suspension instill 2 drops INTO AFFECTED [...] sources) Coronary atherosclerosis; Translations: [Coronary atherosclerosis of mechoopda coronary artery] Onset: 2 Chronic Coronary atherosclerosis [...] 4 08-18-2024 Episodic Other aftercare (1 source) shelter (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; Translations: [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 CURRENT USE OF ASPIRIN] Onset: 3 Episodic Other aftercare (1 source) 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; Translations: [OTH [facility] CURRENT DRUG THERAPY] Onset: 3 Episodic Other [...] Unclassified (1 source) Athscl heart disease of mechoopda coronary artery w/o ang pctrs / I25.10(ICD-9) [...] Interpretation Reference Range Facility Follow-Upon 12-12-2024 Follow-Up [id number] Diana Saleem tte 1965 F Date Provider Department Center 12/12/2024 Neal-CHAUNCEY KIMBLE [facility] Family History Problem Relation Age of Onset Hyperlipidemia Mother Hyperlipidemia Father Hyperlipidemia Brother Heart attack Brother Family Status - Relation Status Age at Mother Father Brother Brother Level of Service:21639 NM OFFICE/OUTPATIENT NEW MODERATE MDM 45 MINUTES (GC) Reason for Visit and Comments: Pancreatitis [824657] - Pain when she stresses or when she eats. She has trouble with losing weight as she always feels bloated and gassy. Normal [facility] XR Wrist - right 2 Viewson 0 11-26-2024 Imaging Result: AP and Lateral Right Wrist: Bone Structure: No acute fracture or dislocation Joint Spaces: The carpal joint spaces are well preserved, mild joint space narrowing and remodeling with subchondral sclerosis distal radius favoring arthritis. , Scapho-lunate interval within normal limit. Soft tissue: No swelling or calcification Impression: No acute bony process Right [facility] observation (narrative) [facility] XR FOREARM RT 2 VWSon 2024 XR FOREARM RT 2 VWS XR FOREARM RT 2 VWS CLINICAL INFORMATION: Right arm pain TECHNIQUE: XR FOREARM RT 2 VWS 2 views right forearm are obtained. There is no acute osseous, articular, or soft tissue abnormality. IMPRESSION: Negative exam. Finalized by Afshin Barrett MD on 10/11/2024 1:59 PM Normal [facility] ECG 12 lead ECGon 08-22-2024 ECG 12 lead ECG [facility] Main [place] [id number] Electrocardiograph Report Signed Patient: Jose Alberto Saleem MR#: [id number] 571 : 1965 Acct:[id number] Age/Sex: 59 / F ADM Date: 08/20/24 Loc: 4 Room: [address] [place] [address] Type: DIS IN Attending Dr: Kaiser Quijano [...] abnormality Abnormal ECG Confirmed by Bella Stein ([id number]) on 08/22/2024 11:33:07 PM Referred By: Bella Stein Electronically Signed By: Bella Stein Transcribed By: MUS Signed By Bella Stein MD 4 2333 Normal [facility] Troponin I High Sensitivityo n 08-22-2024 Troponin I High Sensitivity 1211.6 pg/mL Off scale high 0.0-15.0 The [facility] Comment on above: Result Comment: Crit ical Result : Called to and read back by: ROB MCDONALD at: 08/22/2024 06:38:37 by:RAMONA PERFORMED BY: [place] [address] PATHOLOGIST SEALING AND CANCELING MACHINE OPERATOR JANA OLMEDO M.D. Performed By: #### H S TROP ####[address] Blood Urea Nitrogenon 2023 Urea nitrogen [Mass/Vol] 14 mg/dL Normal 7-25 [facility]ician [facility] Comment on above: Performed By: #### C REAT, BUN, PP, CBC, LYTES ####[place] [address] [place] [id number] [facility] Coagulation Profileon 2023 aPTT Coag (Bld) [Time] 35.9 s Normal 25.1-36.5 [facility] Phys[facility] Comment on above: Result Comment: A he matocrit value greater than 55% may lead to inaccurate results in coagulation testing. Patients having hematocrit values >55% require a special collection tube for coagulation studies. Please contact the laboratory at [phone] for redraw instructions. PERFORMED BY: [facility] [address] [place] [id number] PATHOLOGIST SEALING AND CANCELING MACHINE OPERATOR JANA OLMEDO M.D. Performed By: #### C REAT, BUN, PP, CBC, LYTES ####[place] [address] [place] [id number] [facility] INR Coag (PPP) [Relative time] 1.1 {INR} Normal [facility] Comment on above: Result [...] #### C REAT, BUN, PP, CBC, LYTES ####[place] [address] [place] [id number] [facility] PT Coag (PPP) [Time] 12.2 s Normal 9.0-12.9 [facility] Comment on above: Result Comment: A he matocrit value greater than 55% may lead to inaccurate results in coagulation testing. Patients having hematocrit values >55% require a special collection tube for coagulation studies. Please contact the laboratory at [phone] for redraw instructions. Performed By: #### C REAT, BUN, PP, CBC, LYTES ####[place] [address] [place] [address] [facility] Complete Blood Count Auto Di ffon 08-21-2024 Basophils (Bld) [#/Vol] 0.0 10*3/uL Normal 0.0-0.2 [facility] Comment on above: Result Comment: PERF ORMED BY: [facility] [address] [place] [address] PATHOLOGIST SEALING AND CANCELING MACHINE OPERATOR JANA OLMEDO M.D. Performed By: #### C REAT, BUN, PP, CBC, LYTES ####[address] Basophils/100 WBC (Bld) 0.3 % Normal . [facility] Comment on above: Performed By: #### C REAT, BUN, PP, CBC, LYTES ####[address] Eosinophils (Bld) [#/Vol] 0.2 10*3/uL Normal 0.0-0.45 [facility] Comment on above: Performed By: #### C REAT, BUN, PP, CBC, LYTES ####[address] Eosinophils/100 WBC (Bld) 3.9 % Normal . [facility] Comment on above: Performed By: #### C REAT, BUN, PP, CBC, LYTES ####[address] Erythrocyte distribution width (RBC) [Ratio] 12.7 % Normal 11.9-15.3 [facility] Comment on above: Performed By: #### C REAT, BUN, PP, CBC, LYTES ####[address] Hematocrit (Bld) [Volume fraction] 42.5 % Normal 34.0-46.4 [facility] Comment on above: Performed By: #### C REAT, BUN, PP, CBC, LYTES ####[address] Hemoglobin (Bld) [Mass/Vol] 14.6 g/dL Normal 11.8-15.4 [facility] Comment on above: Performed By: #### C REAT, BUN, PP, CBC, LYTES ####[address] Lymphocytes (Bld) [#/Vol] 1.7 10*3/uL Normal 1.00-4.8 [facility] Comment on above: Performed By: #### C REAT, BUN, PP, CBC, LYTES ####[address] Lymphocytes/100 WBC (Bld) 35.0 % Normal . [facility] Comment on above: Performed By: #### C REAT, BUN, PP, CBC, LYTES ####[address] MCH (RBC) [Entitic mass] 30.8 pg Normal 24.7-34.3 [facility] Comment on above: Performed By: #### C REAT, BUN, PP, CBC, LYTES ####[address] MCV (RBC) [Entitic vol] 89.8 fL Normal 80-100 [facility] Comment on above: Performed By: #### C REAT, BUN, PP, CBC, LYTES ####[address] Mean Corpuscular HGB Conc 34.3 g/dL Normal 32.0-35.0 [facility] Comment on above: Performed By: #### C REAT, BUN, PP, CBC, LYTES ####[address] Monocytes (Bld) [#/Vol] 0.5 10*3/uL Normal 0.0-0.8 [facility] Comment on above: Performed By: #### C REAT, BUN, PP, CBC, LYTES ####[address] Monocytes/100 WBC (Bld) 10.9 % Normal . [facility] Comment on above: Performed By: #### C REAT, BUN, PP, CBC, LYTES ####[address] Neutrophils (Bld) [#/Vol] 2.5 10*3/uL Normal 1.8-7.7 [facility] Comment on above: Performed By: #### C REAT, BUN, PP, CBC, LYTES ####[address] Neutrophils/100 WBC (Bld) 49.9 % Normal . [facility] Comment on above: Performed By: #### C REAT, BUN, PP, CBC, LYTES ####[address] NRBC% 0.1 /100{WBC} Normal 0-0.5 The [facility] Comment on above: Performed By: #### C REAT, BUN, PP, CBC, LYTES ####[address] Platelet mean volume (Bld) [Entitic vol] 7.7 fL Normal 6.3-10.[address] [facility] Comment on above: Performed By: #### C REAT, BUN, PP, CBC, LYTES ####[address] Platelets (Bld) [#/Vol] 172 10*3/uL Normal 150-450 [facility] Comment on above: Performed By: #### C REAT, BUN, PP, CBC, LYTES ####[address] RBC (Bld) [#/Vol] 4.73 10*6/uL Normal 3.60-5.00 The [facility] Comment on above: Performed By: #### C REAT, BUN, PP, CBC, LYTES ####[address] WBC (Bld) [#/Vol] 4.9 10*3/uL Normal 3.8-11.6 The [facility] Comment on above: Performed By: #### C REAT, BUN, PP, CBC, LYTES ####[address] Creatinineon 08-21-2024 Creatinine [Mass/Vol] 0.61 mg/dL Normal 0.60-1.20 [facility] Comment on above: Performed By: #### C REAT, BUN, PP, CBC, LYTES ####[place] [address] [place] [id number] [facility] Creatinine Clr Calc Pharmacy 97.73 Normal [facility] Comment on above: Result Comment: PERF ORMED BY: [place] [address] PATHOLOGIST SEALING AND CANCELING MACHINE OPERATOR JANA OLMEDO M.D. Performed By: #### C REAT, BUN, PP, CBC, LYTES ####[place] [id number] GFR/1.73 sq M.predicted MDRD (S/P/Bld) [Vol rate/Area] mL/min/{1.73_m2} Normal [facility] Comment on above: Performed By: #### C REAT, BUN, PP, CBC, LYTES ####[address] ECG 12 lead ECGon 08-21-2024 ECG 12 lead ECG [facility] Main [place] [address] [place] [address] Electrocardiograph Report Signed Patient: Jose Alberto Saleem MR#: [id number] 571 : 1965 Acct:[id number] Age/Sex: 59 / F ADM Date: 08/20/24 Loc: Room: [address] [place] [address] Type: DIS IN Attending Dr: Kaiser Quijano [...] abnormality Abnormal ECG Confirmed by Bella Stein ([id number]) on 08/22/2024 11:33:52 PM Referred By: Bella Stein Electronically Signed By: Bella Stein Transcribed By: MUS Signed By Bella Stein MD 4 2333 Normal [facility] Electrolyteson 08-21-2024 Anion gap [Moles/Vol] 11.0 mmol/L Normal 6.0-15.0 Th e [facility] Comment on above: Performed By: #### C REAT, BUN, PP, CBC, LYTES ####[address] Chloride [Moles/Vol] 105 mmol/L Normal 98-107 [facility] Comment on above: Performed By: #### C REAT, BUN, PP, CBC, LYTES ####[address] CO2 [Moles/Vol] 27.9 mmol/L Normal 21.0-31.0 The [facility] Comment on above: Performed By: #### C REAT, BUN, PP, CBC, LYTES ####[address] Potassium [Moles/Vol] 3.9 mmol/L Normal 3.5-5.1 [facility] Comment on above: Performed By: #### C REAT, BUN, PP, CBC, LYTES ####[address] Sodium [Moles/Vol] 140 mmol/L Normal 136-145 The [facility] Comment on above: Performed By: #### C REAT, BUN, PP, CBC, LYTES ####[place] [id number] [facility] NM lia perf SPECT rest stron 08-20-2024 NM lia perf SPECT rest str [facility] Main [place] [address] [place] [address] Nuclear Medicine Report Signed Patient: Jose Alberto Saleem MR#: [id number] 571 : 1965 Acct:[id number] Age/Sex: 59 / F ADM Date: 08/18/24 Loc: Room: [address] [place] [address] Type: ADM INOo Attending Dr: Chucky Dunn [...] Bella Stein M.D.08/20/2024 3:56 PM Dictation Location: [facility] [place] [address] Transcribed By: [facility] 08/20/24 1556 Dictated By: Bella Stein MD 08/20/24 1552 Signed By: 08/20/24 1556 Normal [facility] A1C with Estimated Average Griffin moss 08-19-2024 Glucose [Mass/Vol] 117 mg/dL Normal [facility] Comment on above: Result Comment: PERF ORMED BY: [facility] [address] [place] [address] PATHOLOGIST SEALING AND CANCELING MACHINE OPERATOR JANA OLMEDO M.D. Performed By: #### A 1C [facility] eA, HS TROP ####[facility] [address] [place] [address] [facility] HbA1c (Bld) [Mass fraction] 5.7 % High 4.3-5.6 [facility] Comment on above: Result Comment: Incr eased risk for diabetes: 5.7 - 6.4 diabetes: >6.4 glycemic control for adults with diabetes: <7.0 Performed By: #### A 1C [facility], TROP ####[facility] [address] [place] [id number] REHABILITATION [facility] ECG 12 lead ECGon 08-19-2024 ECG 12 lead ECG [facility] [place] [address] Electrocardiograph Report Signed Patient: Jose Alberto Saleem MR#: [id number] : 1965 Acct:[id number] Age/Sex: 59 / F ADM Date: 08/18/24 Loc: 3T Room: [address] [place] [address] Type: ADM INOo Attending Dr: Chucky Dunn [...] abnormality Abnormal ECG Confirmed by Bella Stein ([id number]) on 08/21/2024 12:00:39 AM Referred By: Bella Stein Electronically Signed By: Bella Stein Transcribed By: MUS Signed By Bella Stein MD 4 0000 Normal [facility] ECG 12 lead ECG [facility] [place] [address] Electrocardiograph Report Signed Patient: Jose Alberto Saleem MR#: [id number] : 1965 Acct:[id number] Age/Sex: 59 / F ADM Date: 08/18/24 Loc: Room: [address] [place] [address] Type: ADM INOo Attending Dr: Chucky Dunn [...] rhythm Leftward axis Confirmed by Torsten Monreal ([id number]) on 08/20/2024 11:52:24 PM Referred By: Bella Stein Electronically Signed By: Torsten Monreal Transcribed By: MUS Signed By Torsten Monreal MD 08/20/24 2352 Normal [facility] Troponin I High Sensitivityo n 08-19-2024 Troponin I High Sensitivity 4.6 pg/mL Normal 0.0-15.0 [facility] Comment on above: Result Comment: PERF ORMED BY: [place] [address] PATHOLOGIST SEALING AND CANCELING MACHINE OPERATOR JANA OLMEDO M.D. Performed By: #### A 1C [facility], [facility] ####[address] X-ray reportOrdered By: Anna Wick on 08-19-2024 Study report [facility] Main [place] [address] [place] [address] XRay Report Signed Patient: Jose Alberto Saleem MR#: [id number] : 1965 Acct:[id number] Age/Sex: 59 / F ADM Date: 4 Loc: Room: [address] [place] [address] Type: ADM INOo Attending Dr: Donis Arroyo [...] Thelma Wick M.D.08/19/2024 12:10 AM Dictation Location: [place] [address] Transcribed By: [facility] 08/19/24 001 Dictated By: Thelma Wick MD 08/18/242210 Signed By: 08/19/249 [facility] Work Phone: Alanine aminotransferase [En zymatic activity/volume] in Serum or PlasmaOrdered By: Lynnette Chapman on 08-18-2024 ALT [Catalytic activity/Vol] Alanine aminotransferase [Enzymatic activity/volume] in Serum or Plasma 7-52 [facility] Albumin [Mass/volume] in Ser um or Plasma by Bromocresol green (BCG) dye binding methoOrdered By: Lnynette Chapman on 08-18-2024 Albumin BCG dye [Mass/Vol] Albumin [Mass/volume] in Serum or Plasma by Bromocresol green (BCG) dye binding metho 3.5-5.7 [facility] Alkaline phosphatase [Enzyma tic activity/volume] in Serum or PlasmaOrdered By: Lynnette Chapman on 08-18-2024 ALP [Catalytic activity/Vol] Alkaline phosphatase [Enzymatic activity/volume] in Serum or Plasma 34-104 [facility] Aspartate aminotransferase [ Enzymatic activity/volume] in Serum or PlasmaOrdered By: Lynnette Chapman on 08-18-2024 AST [Catalytic activity/Vol] Aspartate aminotransferase [Enzymatic activity/volume] in Serum or Plasma 13-39 [facility] B-Type Natriuretic Peptideon 08-18-2024 Natriuretic peptide B (Bld) [Mass/Vol] 31.0 pg/mL Normal 5-100 [facility] Comment on above: Result Comment: PERF ORMED BY: [facility] [address] [place] [address] PATHOLOGIST SEALING AND CANCELING MACHINE OPERATOR JANA OLMEDO M.D. Performed By: #### H S TROP, LIPASE, PT, BMP, HEPATIC, CK, CBC, BNP ####[facility] [address] Basic Metabolic Panelon 11- Anion gap [Moles/Vol] 10.7 mmol/L Normal 6.0-15.0 [facility] Comment on above: Performed By: #### H S TROP, LIPASE, PT, BMP, HEPATIC, CK, CBC, BNP #### [address] Performed By: #### H S TROP, LIPASE, PT, BMP, HEPATIC, CK, CBC, BNP ####[address] Calcium [Mass/Vol] 10.1 mg/dL Normal 8.6-10.3 [facility] Comment on above: Performed By: #### H S TROP, LIPASE, PT, BMP, HEPATIC, CK, CBC, BNP #### [address] Performed By: #### H S TROP, LIPASE, PT, BMP, HEPATIC, CK, CBC, BNP ####[address] Chloride [Moles/Vol] 102 mmol/L Normal 98-107 [facility] Comment on above: Performed By: #### H S TROP, LIPASE, PT, BMP, HEPATIC, CK, CBC, BNP #### [address] Performed By: #### H S TROP, LIPASE, PT, BMP, HEPATIC, CK, CBC, BNP ####[address] CO2 [Moles/Vol] 28.4 mmol/L Normal 21.0-31.0 [facility] Comment on above: Performed By: #### H S TROP, LIPASE, PT, BMP, HEPATIC, CK, CBC, BNP #### [address] Performed By: #### H S TROP, LIPASE, PT, BMP, HEPATIC, CK, CBC, BNP ####[address] Creatinine [Mass/Vol] 0.62 mg/dL Normal 0.60-1.20 [facility] Comment on above: Performed By: #### H S TROP, LIPASE, PT, BMP, HEPATIC, CK, CBC, BNP #### [address] Performed By: #### H S TROP, LIPASE, PT, BMP, HEPATIC, CK, CBC, BNP ####[address] Creatinine Clr Calc Pharmacy 95.72 Normal [facility] Comment on above: Result Comment: PERF ORMED BY: [place] [address] PATHOLOGIST SEALING AND CANCELING MACHINE OPERATOR JANA OLMEDO M.D. Performed By: #### H S TROP, LIPASE, PT, BMP, HEPATIC, CK, CBC, BNP #### [address] Performed By: #### H S TROP, LIPASE, PT, BMP, HEPATIC, CK, CBC, BNP ####[address] GFR/1.73 sq M.predicted MDRD (S/P/Bld) [Vol rate/Area] mL/min/{1.73_m2} Normal [facility] Comment on above: Performed By: #### H S TROP, LIPASE, PT, BMP, HEPATIC, CK, CBC, BNP #### [address] Performed By: #### H S TROP, LIPASE, PT, BMP, HEPATIC, CK, CBC, BNP ####[address] Glucose [Mass/Vol] 94 mg/dL Normal 70-100 [facility] Comment on above: Result Comment: [place] om Glucose Reference Range is dependent on time and content of last meal. Glucose of more than 200 mg/dL in a nonstressed, ambulatory subject supports the diagnosis of Diabetes Mellitus. ADA recommended reference range Performed By: #### H S TROP, LIPASE, PT, BMP, HEPATIC, CK, CBC, BNP #### [address] Performed By: #### H S TROP, LIPASE, PT, BMP, HEPATIC, CK, CBC, BNP ####[address] Potassium [Moles/Vol] 4.1 mmol/L Normal 3.5-5.1 [facility] Comment on above: Performed By: #### H S TROP, LIPASE, PT, BMP, HEPATIC, CK, CBC, BNP #### [address] Performed By: #### H S TROP, LIPASE, PT, BMP, HEPATIC, CK, CBC, BNP ####[address] Sodium [Moles/Vol] 137 mmol/L Normal 136-145 [facility] Comment on above: Performed By: #### H S TROP, LIPASE, PT, BMP, HEPATIC, CK, CBC, BNP #### [address] Performed By: #### H S TROP, LIPASE, PT, BMP, HEPATIC, CK, CBC, BNP ####[address] Urea nitrogen [Mass/Vol] 22 mg/dL Normal 7-25 [facility] Comment on above: Performed By: #### H S TROP, LIPASE, PT, BMP, HEPATIC, CK, CBC, BNP #### [address] Performed By: #### H S TROP, LIPASE, PT, BMP, HEPATIC, CK, CBC, BNP ####[address] Basophils Auto (Bld) [#/Vol] Ordered By: Lynnette Chapman on 08-18-2024 Basophils (Bld) [#/Vol] Automated basophil count 0.0-0.2 [facility] Basophils/100 WBC Auto (Bld) Ordered By: Lynnette Chapman on 08-18-2024 Basophils/100 WBC (Bld) Automated basophil % . [facility] Bilirubin.direct [Mass/volum e] in Serum or PlasmaOrdered By: Lynnette Chapman on 08-18-2024 Bilirubin.direct [Mass/Vol] Bilirubin.direct [Mass/volume] in Serum or Plasma 0.03-0.18 [facility] Bilirubin.total [Mass/volume ] in Serum or PlasmaOrdered By: Lynnette Chapman on 08-18-2024 Bilirubin [Mass/Vol] Bilirubin.total [Mass/volume] in Serum or Plasma 0.3-1.0 [facility] Calcium [Mass/volume] in Ser um or PlasmaOrdered By: Lynnette Chapman on 08-18-2024 Calcium [Mass/Vol] Calcium [Mass/volume ] in Serum or Plasma 8.6-10.3 [facility] Carbon dioxide, total [Moles /volume] in Serum or PlasmaOrdered By: Lynnette Chapman on 08-18-2024 CO2 [Moles/Vol] Carbon dioxide, tota l [Moles/volume] in Serum or Plasma 21.0-31.0 [facility] Chloride [Moles/volume] in S nina or PlasmaOrdered By: Lynnette Chapman on 08-18-2024 Chloride [Moles/Vol] Chloride [Moles/vol ume] in Serum or Plasma 98-107 [facility] Complete Blood Count Auto Di ffon 08-18-2024 Basophils (Bld) [#/Vol] 0.0 10*3/uL Normal 0.0-0.2 [facility] Comment on above: Result Comment: PERF ORMED BY: [address] [place] [address] PATHOLOGIST SEALING AND CANCELING MACHINE OPERATOR JANA OLMEDO M.D. Performed By: #### H S TROP, LIPASE, PT, BMP, HEPATIC, CK, CBC, BNP #### [address] Basophils/100 WBC (Bld) 0.7 % Normal . [facility] Comment on above: Performed By: #### H S TROP, LIPASE, PT, BMP, HEPATIC, CK, CBC, BNP #### [facility] [address] [place] [address] Eosinophils (Bld) [#/Vol] 0.2 10*3/uL Normal 0.0-0.45 [facility] Comment on above: Performed By: #### H S TROP, LIPASE, PT, BMP, HEPATIC, CK, CBC, BNP #### [address] Eosinophils/100 WBC (Bld) 3.5 % Normal . [facility] Comment on above: Performed By: #### H S TROP, LIPASE, PT, BMP, HEPATIC, CK, CBC, BNP #### [address] Erythrocyte distribution width (RBC) [Ratio] 12.6 % Normal 11.9-15.3 [facility] Comment on above: Performed By: #### H S TROP, LIPASE, PT, BMP, HEPATIC, CK, CBC, BNP #### [address] Hematocrit (Bld) [Volume fraction] 43.7 % Normal 34.0-46.4 [facility] Comment on above: Performed By: #### H S TROP, LIPASE, PT, BMP, HEPATIC, CK, CBC, BNP #### [address] Hemoglobin (Bld) [Mass/Vol] 15.1 g/dL Normal 11.8-15.4 [facility] Comment on above: Performed By: #### H S TROP, LIPASE, PT, BMP, HEPATIC, CK, CBC, BNP #### [address] Lymphocytes (Bld) [#/Vol] 2.2 10*3/uL Normal 1.00-4.8 [facility] Comment on above: Performed By: #### H S TROP, LIPASE, PT, BMP, HEPATIC, CK, CBC, BNP #### [address] Lymphocytes/100 WBC (Bld) 36.5 % Normal . [facility] Comment on above: Performed By: #### H S TROP, LIPASE, PT, BMP, HEPATIC, CK, CBC, BNP #### [address] MCH (RBC) [Entitic mass] 30.7 pg Normal 24.7-34.3 [facility] Comment on above: Performed By: #### H S TROP, LIPASE, PT, BMP, HEPATIC, CK, CBC, BNP #### [address] MCV (RBC) [Entitic vol] 88.8 fL Normal 80-100 [facility] Comment on above: Performed By: #### H S TROP, LIPASE, PT, BMP, HEPATIC, CK, CBC, BNP #### [address] Mean Corpuscular HGB Conc 34.5 g/dL Normal 32.0-35.0 [facility] Comment on above: Performed By: #### H S TROP, LIPASE, PT, BMP, HEPATIC, CK, CBC, BNP #### [address] Monocytes (Bld) [#/Vol] 0.6 10*3/uL Normal 0.0-0.8 [facility] Comment on above: Performed By: #### H S TROP, LIPASE, PT, BMP, HEPATIC, CK, CBC, BNP #### [address] Monocytes/100 WBC (Bld) 16.97 % Normal 0.00-20.00 [facility] Comment on above: Performed By: #### H S TROP, LIPASE, PT, BMP, HEPATIC, CK, CBC, BNP #### [address] Monocytes/100 WBC (Bld) 10.5 % Normal . [facility] Comment on above: Performed By: #### H S TROP, LIPASE, PT, BMP, HEPATIC, CK, CBC, BNP #### [address] Neutrophils (Bld) [#/Vol] 3.0 10*3/uL Normal 1.8-7.7 [facility] Comment on above: Performed By: #### H S TROP, LIPASE, PT, BMP, HEPATIC, CK, CBC, BNP #### [address] Neutrophils/100 WBC (Bld) 48.8 % Normal . [facility] Comment on above: Performed By: #### H S TROP, LIPASE, PT, BMP, HEPATIC, CK, CBC, BNP #### [address] NRBC% 0.1 /100{WBC} Normal 0-0.5 [facility] Comment on above: Performed By: #### H S TROP, LIPASE, PT, BMP, HEPATIC, CK, CBC, BNP #### [address] Platelet mean volume (Bld) [Entitic vol] 7.9 fL Normal 6.3-10.[address] [facility] Comment on above: Performed By: #### H S TROP, LIPASE, PT, BMP, HEPATIC, CK, CBC, BNP #### [address] Platelets (Bld) [#/Vol] 204 10*3/uL Normal 150-450 [facility] Comment on above: Performed By: #### H S TROP, LIPASE, PT, BMP, HEPATIC, CK, CBC, BNP #### [address] RBC (Bld) [#/Vol] 4.92 10*6/uL Normal 3.60-5.00 [facility] Comment on above: Performed By: #### H S TROP, LIPASE, PT, BMP, HEPATIC, CK, CBC, BNP #### [address] WBC (Bld) [#/Vol] 6.1 10*3/uL Normal 3.8-11.6 [facility] Comment on above: Performed By: #### H S TROP, LIPASE, PT, BMP, HEPATIC, CK, CBC, BNP #### [address] [place] [address] [place] Creatine Kinaseon 08-18-2024 CK [Catalytic activity/Vol] 53 U/L Normal 30 [facility] Comment on above: Performed By: #### H S TROP, LIPASE, PT, BMP, HEPATIC, CK, CBC, BNP ####[facility] [id number] [place] [address] [facility] Creatine kinase [Enzymatic a ctivity/volume] in Serum or PlasmaOrdered By: Lynnette Chapman on 08-18-2024 CK [Catalytic activity/Vol] Creatine kinase [Enzymatic activity/volume] in Serum or Plasma 30- [facility] Creatinine [Mass/volume] in Serum or PlasmaOrdered By: Lynnette Chapman on 08-18-2024 Creatinine [Mass/Vol] Creatinine [Mass/v olume] in Serum or Plasma 0.60-1.20 [facility] ECG 12 lead ECGon 08-18-2024 ECG 12 lead ECG [facility] Main [place] [address] [place] [address] Electrocardiograph Report Signed Patient: Jose Alberto Saleem MR#: [id number] : 1965 Acct:[id number] Age/Sex: 59 / F ADM Date: 08/18/24 Loc: ER Room: Type: [facility] ER Attending Dr: Ordering Provider: Lynnette [...] wave abnormality Confirmed by Lynnette Chapman MD ([id number]) on 08/18/2024 11:22:40 PM Referred By: Electronically Signed By: Lynnette Chapman MD Transcribed By: MUS Signed By Lynnette Chapman MD 08/01 05/24 078 Normal [facility] Eosinophils Auto (Bld) [#/Vo l]Ordered By: Lynnette Chapman on 08-18-2024 Eosinophils (Bld) [#/Vol] Automated eosinophil count 0.0-0.45 [facility] Eosinophils/100 WBC Auto (Bl d)Ordered By: Lynnette Chapman on 08-18-2024 Eosinophils/100 WBC (Bld) Automated eosinophil % . [facility] Erythrocyte distribution wid th Auto (RBC) [Ratio]Ordered By: Lynnette Chapman on 08-18-2024 Erythrocyte distribution width (RBC) [Ratio] Erythrocyte distribution width [Ratio] by Automated count 11.9-15.3 [facility] Globulin Calc (S) [Mass/Vol] Ordered By: Lynnette Chapman on 08-18-2024 Globulin (S) [Mass/Vol] Serum globulin measurement by calculation (mass/volume) [facility] Glucose [Mass/volume] in Ser um or PlasmaOrdered By: Lynnette Chapman on 08-18-2024 Glucose [Mass/Vol] Glucose [Mass/volume ] in Serum or Plasma 70-100 [facility] Comment on above: ADA recommended refe rence rangeRandom Glucose Reference Range is dependent on time and content of last meal. Glucose of more than 200 mg/dL in a nonstressed, ambulatory subject supports the diagnosis of Diabetes Mellitus. Hematocrit Auto (Bld) [Volum e fraction]Ordered By: Lynnette Chapman on 08-18-2024 Hematocrit (Bld) [Volume fraction] Hematocrit [Volume Fraction] of Blood by Automated count 34.0-46.4 [facility] Hemoglobin [Mass/volume] in BloodOrdered By: Lynnette Chapman on 08-18-2024 Hemoglobin (Bld) [Mass/Vol] Hemoglobin [Mass/volume] in Blood 11.8-15.4 [facility] Hepatic Panelon 08-18-2024 Albumin [Mass/Vol] 4.3 g/dL Normal 3.5-5.7 [facility] Comment on above: Performed By: #### H S TROP, LIPASE, PT, BMP, HEPATIC, CK, CBC, BNP ####[facility] [id number] [place] [id number] [facility] Albumin/Globulin [Mass ratio] 1.7 {ratio} Normal [facility] Comment on above: Performed By: #### H S TROP, LIPASE, PT, BMP, HEPATIC, CK, CBC, BNP ####[address] ALP [Catalytic activity/Vol] 89 U/L Normal 34-104 [facility] Comment on above: Performed By: #### H S TROP, LIPASE, PT, BMP, HEPATIC, CK, CBC, BNP ####[address] ALT [Catalytic activity/Vol] 42 U/L Normal 7-52 [facility] Comment on above: Performed By: #### H S TROP, LIPASE, PT, BMP, HEPATIC, CK, CBC, BNP ####[address] AST [Catalytic activity/Vol] 31 U/L Normal 13-39 [facility] Comment on above: Performed By: #### H S TROP, LIPASE, PT, BMP, HEPATIC, CK, CBC, BNP ####[address] Bilirubin [Mass/Vol] 0.4 mg/dL Normal 0.3-1.0 [facility] Comment on above: Performed By: #### H S TROP, LIPASE, PT, BMP, HEPATIC, CK, CBC, BNP ####[address] Bilirubin,Indirect 0.3 mg/dL Normal [facility] Comment on above: Performed By: #### H S TROP, LIPASE, PT, BMP, HEPATIC, CK, CBC, BNP ####[address] Bilirubin.indirect [Mass/Vol] 0.10 mg/dL Normal 0.03-0.18 [facility] Comment on above: Performed By: #### H S TROP, LIPASE, PT, BMP, HEPATIC, CK, CBC, BNP ####[address] Globulin (S) [Mass/Vol] 2.6 g/dL Normal [facility] Comment on above: Performed By: #### H S TROP, LIPASE, PT, BMP, HEPATIC, CK, CBC, BNP ####[facility] [place] [id number] [facility] Protein [Mass/Vol] 6.9 g/dL Normal 6.4-8.9 [facility] Comment on above: Performed By: #### H S TROP, LIPASE, PT, BMP, HEPATIC, CK, CBC, BNP ####[place] [address] [place] [address] [facility] INR in Platelet poor plasma by Coagulation assayOrdered By: Lynnette Chapman on 08-18-2024 INR Coag (PPP) [Relative time] INR in Platelet poor plasma by Coagulation assay [facility] Comment on above: INR Therapeutic Rang e [...] erythrocytes in Blood by Automated coun 3.8-11.6 [facility] Lipaseon 08-18-2024 Lipase [Catalytic activity/Vol] 110.0 U/L High 11.0-82.0 [facility] Comment on above: Result Comment: PERF ORMED BY: [facility] [address] [place] [id number] PATHOLOGIST SEALING AND CANCELING MACHINE OPERATOR JANA OLMEDO M.D. Performed By: #### H S TROP, LIPASE, PT, BMP, HEPATIC, CK, CBC, BNP ####[place] [address] [place] [id number] [facility] Lipase [Enzymatic activity/v olume] in Serum or PlasmaOrdered By: Lynnette Chapman on 08-18-2024 Lipase [Catalytic activity/Vol] Lipase [Enzymatic activity/volume] in Serum or Plasma High 11.0-82.0 [facility] Lymphocytes Auto (Bld) [#/Vo l]Ordered By: Lynnette Chapman on 08-18-2024 Lymphocytes (Bld) [#/Vol] Lymphocytes [#/volume] in Blood by Automated count 1.00-4.8 [facility] Lymphocytes/100 WBC Auto (Bl d)Ordered By: Lynnette Chapamn on 08-18-2024 Lymphocytes/100 WBC (Bld) Lymphocytes/100 leukocytes in Blood by Automated count . [facility] MCH Auto (RBC) [Entitic mass ]Ordered By: Lynnette Chapman on 08-18-2024 MCH (RBC) [Entitic mass] MCH [Entitic mass] by Automated count 24.7-34.3 [facility] MCHC Auto (RBC) [Mass/Vol]Or dered By: Lynnette Chapman on 08-18-2024 MCHC (RBC) [Mass/Vol] MCHC [Mass/volume] by Automated count 32.0-35.0 [facility] MCV Auto (RBC) [Entitic vol] Ordered By: Lynnette Chapman on 08-18-2024 MCV (RBC) [Entitic vol] MCV [Entitic volume] by Automated count 80-100 [facility] Monocyte distribution width [Entitic volume] in Blood by AutomatedOrdered By: Lynnette Chapman on 08-18-2024 Monocyte distribution width Auto (Bld) [Entitic vol] Monocyte distribution width [Entitic volume] in Blood by Automated 0.00-20.00 [facility] Monocytes Auto (Bld) [#/Vol] Ordered By: Lynnette Chapman on 08-18-2024 Monocytes (Bld) [#/Vol] Automated blood monocyte count 0.0-0.8 [facility] Monocytes/100 WBC Auto (Bld) Ordered By: Lynnette Chapman on 08-18-2024 Monocytes/100 WBC (Bld) Automated monocyte % . [facility] Natriuretic peptide B [Mass/ Vol]Ordered By: Lynnette Chapman on 08-18-2024 Natriuretic peptide B (Bld) [Mass/Vol] BNP ser/plas 5-100 [facility] Neutrophils Auto (Bld) [#/Vo l]Ordered By: Lynnette Chapman on 08-18-2024 Neutrophils (Bld) [#/Vol] Neutrophils [#/volume] in Blood by Automated count 1.8-7.7 [facility] Neutrophils/100 WBC Auto (Bl d)Ordered By: Lynnette Chapman on 08-18-2024 Neutrophils/100 WBC (Bld) Automated neutrophil % . [facility] No Panel InformationOrdered By: Lynnette Chapman on 08-18-2024 Estimated GFR (CKD-EPI) > 60.0 mL/Min [facility] Creatinine Clearance (Chem 95.72 [facility] Nucleated erythrocytes [Pres ence] in Blood by Automated countOrdered By: Lynnette Chapman on 08-18-2024 Nucleated RBC Auto Ql (Bld) Nucleated erythrocytes [Presence] in Blood by Automated count 0-0.5 [facility] Platelet mean volume Auto (B ld) [Entitic vol]Ordered By: Lynnette Chapman on 08-18-2024 Platelet mean volume (Bld) [Entitic vol] Platelet mean volume [Entitic volume] in Blood by Automated count 6.3-10.7 [facility] Platelets Auto (Bld) [#/Vol] Ordered By: Lynnette Chapman on 08-18-2024 Platelets (Bld) [#/Vol] Platelets [#/volume] in Blood by Automated count 150-450 [facility] Potassium [Moles/volume] in Serum or PlasmaOrdered By: Lynnette Chapman on 08-18-2024 Potassium [Moles/Vol] Potassium [Moles/v olume] in Serum or Plasma 3.5-5.1 [facility] Protein [Mass/volume] in Ser um or PlasmaOrdered By: Lynnette Chapman on 08-18-2024 Protein [Mass/Vol] Protein [Mass/volume ] in Serum or Plasma 6.4-8.9 [facility] Prothrombin Time INRon 08-18 INR Coag (PPP) [Relative time] 1.0 {INR} Normal [facility] Comment on above: Result [...] heart valves: 3 - 4.5 PERFORMED BY: [facility] [address] [facility] [place] [address] PATHOLOGIST SEALING AND CANCELING MACHINE OPERATOR JANA OLMEDO M.D. Performed By: #### H S TROP, LIPASE, PT, BMP, HEPATIC, CK, CBC, BNP #### [facility] [address] PT Coag (PPP) [Time] 11.7 s Normal 9.0-12.9 [facility] Comment on above: Result Comment: A he matocrit value greater than 55% may lead to inaccurate results in coagulation testing. Patients having hematocrit values >55% require a special collection tube for coagulation studies. Please contact the laboratory at [phone] for redraw instructions. Performed By: #### H S TROP, LIPASE, PT, BMP, HEPATIC, CK, CBC, BNP #### [facility] [address] [place] [address] [facility] Prothrombin time (PT)Ordered By: Lynnette Chapman on 08-18-2024 PT Coag (PPP) [Time] Prothrombin time (PT) 9.0- 12.9 [facility] Comment on above: A hematocrit value g reater than 55% may lead to inaccurate results in coagulation testing. Patients having hematocrit values >55% require a special collection tube for coagulation studies. Please contact the laboratory at [phone] for redraw instructions. RBC Auto (Bld) [#/Vol]Ordere d By: Lynnette Chapman on 08-18-2024 RBC (Bld) [#/Vol] Erythrocytes [#/volu me] in Blood by Automated count 3.60-5.00 [facility] Serum or plasma albumin/glob ulin mass ratioOrdered By: Lynnette Chapman on 08-18-2024 Albumin/Globulin [Mass ratio] Serum or plasma albumin/globulin mass ratio [facility] Serum or plasma anion gap de terminationOrdered By: Lynnette Chapman on 08-18-2024 Anion gap [Moles/Vol] Serum or plasma an ion gap determination 6.0-15.0 [facility] Serum or plasma non-glucuron idated bilirubin measurement (mass/volume)Ordered By: Lynnette Chapman on 08-18-2024 Bilirubin.indirect [Mass/Vol] Serum or plasma non-glucuronidated bilirubin measurement (mass/volume) [facility] Sodium [Moles/volume] in Ser um or PlasmaOrdered By: Lynnette Chapman on 08-18-2024 Sodium [Moles/Vol] Sodium [Moles/volume ] in Serum or Plasma 136-145 [facility] Troponin I High Sensitivityo n 08-18-2024 Troponin I High Sensitivity 4.7 pg/mL Normal 0.0-15.0 [facility] Comment on above: Result Comment: PERF ORMED BY: [facility] [address] [place] [address] PATHOLOGIST SEALING AND CANCELING MACHINE OPERATOR JANA OLMEDO M.D. Performed By: #### H S TROP ####[facility] [id number] [place] [address] [facility] Troponin I High Sensitivity 5.1 pg/mL Normal 0.0-15.0 [facility] Comment on above: Result Comment: PERF ORMED BY: [facility] [address] [place] [id number] PATHOLOGIST SEALING AND CANCELING MACHINE OPERATOR JANA OLMEDO M.D. Performed By: #### H S TROP, LIPASE, PT, BMP, HEPATIC, CK, CBC, BNP ####[facility] [id number] [place] [address] [facility] Troponin I.cardiac [Mass/vol ume] in Serum or Plasma by Detection limit <= 0.01 ng/Ordered By: Lynnette Chapman on 08-18-2024 Troponin I.cardiac DL <= 0.01 ng/mL [Mass/Vol] Troponin I.cardiac [Mass/volume] in Serum or Plasma by Detection limit <= 0.01 ng/ 0.0-15.0 [facility] Urea nitrogen [Mass/volume] in Serum or PlasmaOrdered By: Lynnette Chapman on 08-18-2024 Urea nitrogen [Mass/Vol] Urea nitrogen [Mass/volume] in Serum or Plasma 7-25 [facility] WBC Auto (Bld) [#/Vol]Ordere d By: Lynnette Chapman on 08-18-2024 WBC (Bld) [#/Vol] Leukocytes [#/volume ] in Blood by Automated count 3.8-11.6 [facility] XR chest 2V*on 08-18-2024 XR chest 2V* [facility] [place] [address] [place] [address] XRay Report Signed Patient: Jose Alberto Saleem MR#: [id number] : 1965 Acct:[id number] Age/Sex: 59 / F ADM Date: 08/18/24 Loc: Room: [address] [place] [address] Type: ADM INOo Attending Dr: Donis Arroyo [...] Thelma Wick M.D.08/19/2024 12:10 AM Dictation Location: [place] [address] Transcribed By: [facility] 08/19/249 Dictated By: Thelma Wick MD 08/18/242210 Signed By: 08/19/24 001 Normal [facility] Reminderson 08-05-2024 Reminders Reminders From: Magdalena Longoria To: EU - Administrative; Sent: 08/05/2024 13:08:24 EST Show up: 03/01/2025 13:08:00 EDT Subject: 1 yr reminder Due Date/Time: 08/01/2025 13:08:00 EDT Reminder/Recall Patient needs scheduled with [facility] for a 1 yr f/u with [facility]UB Normal [facility] Urology Office/Clinic Noteon 08-05-2024 Urology Office/Clinic Note [...] Myrbetriq from 25mg to 50mg qd Ordered: 16973 Measure Post Void residual urine and/or bladder capacity by US- non-imaging E&M of Est. Patient Moderate 30-39 Min 38419 Urnls Dip Stick Auto w/o Microscopy POC 41428 2. Urethral pain (R39.89: Other symptoms and [...] day(s), # 90 tab(s), Refills(s) 3, Pharmacy: [facility] [id number], 160, cm, 08/05/24 11:29:00 EST, Height/Length Dosing, 74.2, kg, 08/05/24 11:29:00 EST, Weight Dosing tamsulosin, 0.4 mg = 1 cap(s), Oral, Daily, # 90 cap(s), Refills(s) 3, Pharmacy: [facility], 160, cm, 08/05/24 11:29:00 EST, Height/Length Dosing, 74.2, kg, 08/05/24 11:29:00 EST, Weight Dosing Follow-up With When Contact Information JENNIFER MARTINO PA-C, URL Within 1 year Additional Instructions: Patient Education Kidney Stones, Azxb-[id number]-Xtpn Problem List/Past Medical History Ongoing Anticoagulated Feeling (more content not included)... [facility] Comment on above: Result Comment: Elec tronically [...] wk f/u. Appointment due by 06/19/2024 in purdin with [facility] PT SCHEDULED JUL 03, 2024 [facility] Urology Office/Clinic Noteon 04-10-2024 Urology Office/Clinic Note [...] E&M of Est. Patient High 40-54 Min 94288 Urnls Dip Stick Auto w/o Microscopy POC 93729 2. OAB (overactive bladder) (N32.81: Overactive bladder) [...] E&M of Est. Patient High 40-54 Min 50554 3. Urethral pain (R39.89: Other symptoms and [...] E&M of Est. Patient High 40-54 Min 74929 Orders: estradiol topical, See Instructions, 42.5 gm, Refill(s) 6, apply a pea-sized amount vaginally and around the urethra nightly x 3 weeks, then 3x per week thereafter, [facility][id number], 160, cm, 04/10/24 15:13:00 EDT, Height/Length Dosing, 74, kg, 04/10/24 15:13... mirabegron, 25 mg = 1 tab(s), Oral, Daily, do not fill both mirabegron AND vibegron. only fill whichever has lower co-pay., X 30 day(s), # 30 tab(s), Refills(s) 11, Pharmacy: [facility] #[id number], 160, cm, 04/10/24 15:13:00 EDT, Height/Length Dosing, 74, k... vibegron, 75 mg = 1 tab(s), Oral, Daily, X 30 day(s), # 30 tab(s), Refills(s) 11, Pharmacy: [facility] #[id number], 160, cm, 04/10/24 15:13:00 EDT, Height/Length Dosing, 74, kg, 04/10/24 15:13:00 EDT, Weight Dosing Total time spent reviewing previous notes/results/external documents, preparing the chart, conducting the encounter with the patient and family, ordering tests/medications, and documenting the encounter was 40 minutes. Follow-up With When Contact Information JENNIFER MARTINO PA-C, CARLOS Within 3 months [address] [facility] [place] [address] Additional Instructions: Patient Education Kidney Stones, Dtcg-sr-Pmce Problem List/Past Medical History Ongoing Anticoagulated Feeling of incomplete b (more content not included)... Normal [facility] Comment on above: Result Comment: Elec tronically Signed By: JENNIFER MARTINO PA-C\.br\Date and Time Signed: 04/10/24 16:09 EDT Glucose Glucometer (BldC) [M ass/Vol]on 03-06-2024 Glucose [Mass/Vol] 79 mg/dL Normal 65-99 [facility] 36on 02-28-2024 36 Scheduled EGD/EUS 03/06/24 @1130, PTH, Dr. Cesar, PAT ph: 02/29/24 @1000, #[id number], Clinic appt 02/27/24 w/ Sherita. Normal [facility] [id number] 2023 ALPHA-1 ANTITRYPSIN 145 mg/dL Normal 90-200 [facility] Comment on above: Result Comment: To c onvert to umol/L, multiply mg/dL by 0.185 Performed By: [facility] [employer] [address] [place] [address] Drum Stenciler: Sarwat Gorman MD, PhD CLIA Number: [id number] Performed By: #### L [id number] #### [facility] ([facility]) [address] [place] [address] ANAon 02-27-2024 CHAY TITER <1:40 Normal <=1:40 [facility] Comment on above: Result Comment: Test performed using BRIJESH IFA CHAY Hep-2 Test, a pre-standardized assay designed for the qualitative and semi-quantitative detection of antinuclear antibodies. Performed By: #### L [id number] #### [facility] [address] [place] [address] ANTI-SMOOTH MUSCLE ANTIBODY TITERon 02-27-2024 SMOOTH MUSCLE AB, IGG TITER <1:20 Normal <1:20 [facility] Comment on above: Result Comment: INTE RPRETIVE INFORMATION: Smooth Muscle Ab, IgG Titer Less than 1:20 ........ Negative - No antibody detected. 1:20 - 1:80 .......... Weak Positive - Suggest repeat in two to three weeks with fresh specimen. 1:160 or greater ...... Positive - Suggestive of autoimmune hepatitis or chronic active hepatitis. Performed By: [employer] [address] [place] [address] Drum Stenciler: Sarwat Gorman MD, PhD CLIA Number: [id number] Performed By: #### L [id number] #### [facility] [address] [place] [id number] CBC WITH AUTO DIFFERENTIALon 02-27-2024 Basophils (Bld) [#/Vol] 0.01 10*3/uL Normal 0.00-0.20 [facility] Comment on above: Performed By: #### L [id number] #### [facility] [address] [place] [address] Basophils/100 WBC (Bld) 0.2 % Normal 0.0-1.0 [facility] Comment on above: Performed By: #### L [id number] #### [facility] [address] [place] [address] Eosinophils (Bld) [#/Vol] 0.17 10*3/uL Normal 0.00-0.50 [facility] Comment on above: Performed By: #### L [id number] #### [facility] [address] [place] [address] Eosinophils/100 WBC (Bld) 3.2 % Normal 0.0-6.0 [facility] Comment on above: Performed By: #### L [id number] #### [facility] [address] [place] [address] Erythrocyte distribution width (RBC) [Ratio] 12.6 % Normal 11.5-15.0 [facility] Comment on above: Performed By: #### L [id number] #### [facility] ([facility]) [address] [place] [address] ERYTHROCYTE MEAN CORPUSCULAR HEMOGLOBIN CONCENTRATION (G/DL) BY AUTOMATED 33.6 g/dL Normal 32.0-35.0 [facility] Comment on above: Performed By: #### L [id number] #### [facility] [address] [place] [address] Hematocrit (Bld) [Volume fraction] 44.0 % Normal 36.0-48.0 [facility] Comment on above: Performed By: #### L [id number] #### [facility]) [address] [place] [address] Hemoglobin (Bld) [Mass/Vol] 14.8 g/dL Normal 12.0-15.0 [facility] Comment on above: Performed By: #### L [id number] #### [facility] [address] [place] [address] Immature granulocytes (Bld) [#/Vol] 0.01 10*3/uL Normal 0.00-0.20 [facility] Comment on above: Performed By: #### L [id number] #### [facility]) [address] [place] [address] Immature granulocytes/100 WBC (Bld) 0.2 % Normal 0.0-1.0 [facility] Comment on above: Performed By: #### L [id number] #### [facility] [address] [place] [address] Lymphocytes (Bld) [#/Vol] 1.19 10*3/uL Low 1.20-4.00 [facility] Comment on above: Performed By: #### L [id number] #### [facility] [address] [place] [address] Lymphocytes/100 WBC (Bld) 22.3 % Normal 20.0-45.0 [facility] Comment on above: Performed By: #### L [id number] #### [facility] [address] [place] [address] MCH (RBC) [Entitic mass] 30.2 pg Normal 27.0-33.0 [facility] Comment on above: Performed By: #### L [id number] #### [facility]) [address] [place] [address] MCV (RBC) [Entitic vol] 89.8 fL Normal 82.0-98.0 [facility] Comment on above: Performed By: #### L [id number] #### [facility]) [address] [place] [address] Monocytes (Bld) [#/Vol] 0.53 10*3/uL Normal 0.10-1.00 [facility] Comment on above: Performed By: #### L [id number] #### [facility] [address] [place] [address] Monocytes/100 WBC (Bld) 9.9 % Normal 5.0-12.0 [facility] Comment on above: Performed By: #### L [id number] #### [facility] ([facility]) [address] [place] [address] Neutrophils (Bld) [#/Vol] 3.42 10*3/uL Normal 1.60-7.60 [facility] Comment on above: Performed By: #### L [id number] #### [facility] ([facility]) [address] [place] [address] Neutrophils/100 WBC (Bld) 64.2 % Normal 40.0-72.0 [facility] Comment on above: Performed By: #### L [id number] #### [facility] ([facility]) [address] [place] [address] NRBC (PER 100 WBCS) BY AUTOMATED COUNT 0.0 % Normal 0 [facility] Comment on above: Performed By: #### L [id number] #### [facility] ([facility]) [address] [place] [address] PLATELETS (10*3/UL) IN BLOOD AUTOMATED COUNT 198 10*3/uL Normal 150-400 [facility] Comment on above: Performed By: #### L [id number] #### [facility] ([facility]) [address] [place] [address] RBC (Bld) [#/Vol] 4.90 10*6/uL Normal 3.80-5.00 [facility] Comment on above: Performed By: #### L [id number] #### [facility] ([facility]) [address] [place] [address] WBC (Bld) [#/Vol] 5.33 10*3/uL Normal 4.00-10.60 [facility] Comment on above: Performed By: #### L [id number] #### [facility] [address] [place] [address] COMPREHENSIVE METABOLIC PANE Curtis 02-27-2024 Albumin [Mass/Vol] 4.4 g/dL Normal 3.5-5.7 [facility] Comment on above: Performed By: #### L [id number] #### [facility]) [address] [place] [address] ALP [Catalytic activity/Vol] 84 U/L Normal 34-104 [facility] Comment on above: Performed By: #### L [id number] #### [facility] ([facility] [address] [place] [address] ALT [Catalytic activity/Vol] 43 U/L Normal 7-52 [facility] Comment on above: Performed By: #### L [id number] #### [facility] ([facility] [address] [place] [address] Anion gap [Moles/Vol] 11 mmol/L Normal 7-20 [facility] Comment on above: Performed By: #### L [id number] #### [facility] ([facility] [address] [place] [address] AST [Catalytic activity/Vol] 33 U/L Normal 13-39 [facility] Comment on above: Performed By: #### L [id number] #### [facility]) [address] [place] [address] Bilirubin [Mass/Vol] 0.4 mg/dL Normal 0.3-1.0 [facility] Comment on above: Performed By: #### L [id number] #### [facility] ([facility] [address] [place] [address] Calcium [Mass/Vol] 9.9 mg/dL Normal 8.6-10.3 [facility] Comment on above: Performed By: #### L [id number] #### [facility]) [address] [place] [address] Chloride [Moles/Vol] 102 mmol/L Normal 98-107 [facility] Comment on above: Performed By: #### L [id number] #### [facility] ([facility]) [address] [place] [address] CO2 [Moles/Vol] 29 mmol/L Normal 21-31 [facility] Comment on above: Performed By: #### L [id number] #### [facility] ([facility]) [address] [place] [address] Creatinine [Mass/Vol] 0.62 mg/dL Normal 0.60-1.20 [facility] Comment on above: Performed By: #### L [id number] #### [facility] ([facility]) [address] [place] [address] GLOMERULAR FILTRATION RATE ML/MIN/1.73 SQ M.PREDICTED 102.5 mL/min/1.73m*2 Normal >60.0 [facility] Comment on above: Result Comment: [facility]???s estimated glomerular filtration rate (eGFR) will [...] group of individuals. Performed By: #### L [id number] #### [facility] ([facility]) [address] [place] [address] Glucose [Mass/Vol] 90 mg/dL Normal 70-100 [facility] Comment on above: Performed By: #### L [id number] #### [facility] ([facility]) [address] [place] [address] Potassium [Moles/Vol] 4.2 mmol/L Normal 3.5-5.1 [facility] Comment on above: Performed By: #### L [id number] #### [facility] ([facility]) [address] [place] [address] Protein [Mass/Vol] 6.9 g/dL Normal 6.0-8.3 [facility] Comment on above: Performed By: #### L [id number] #### [facility] ([facility] [address] [place] [address] Sodium [Moles/Vol] 138 mmol/L Normal 136-145 [facility] Comment on above: Performed By: #### L [id number] #### [facility] ([facility]) [address] [place] [address] Urea nitrogen [Mass/Vol] 27 mg/dL High 7-25 [facility] Comment on above: Performed By: #### L [id number] #### [facility] ([facility]) [address] [place] [address] UREA NITROGEN/CREATININE (MASS RATIO) IN SER/PLAS 43.5 Normal [facility] Comment on above: Performed By: #### L [id number] #### [facility] ([facility]) [address] [place] [address] COPPER, SERUMon 02-27-2024 COPPER 125.0 ug/dL Normal 80.0-155.0 [facility] Comment on above: Result Comment: INTE [...] developed and its performance characteristics determined by [facility]. It has not been cleared or approved by the [place] Food and Drug Administration. This test was performed in a CLIA certified laboratory and is intended for clinical purposes. Performed By: [facility] [address] [place] [address] Drum Stenciler: Sarwat Gorman MD, PhD CLIA Number: [id number] Performed By: #### L [id number] #### [facility] ([facility]) [address] [place] [address] FERRITINon 02-27-2024 FERRITIN (NG/ML) IN SER/PLAS 32.0 ng/mL Normal 11.0-307.0 [facility] Comment on above: Performed By: #### L [id number] #### [facility] ([facility]) [address] [place] [address] FOLATEon 02-27-2024 FOLATE (NG/ML) IN SER/PLAS 39.0 ng/mL Normal 6.6-1000 [facility] Comment on above: Performed By: #### L [id number] #### [facility] ([facility]) [address] [place] [address] HEMOGLOBIN A1Con 02-27-2024 Glucose [Mass/Vol] 100 mg/dL Normal [facility] Comment on above: Performed By: #### L [id number] #### [facility] ([facility]) [address] [place] [address] HbA1c (Bld) [Mass fraction] 5.1 % Normal 4.0-6.0 [facility] Comment on above: Performed By: #### L [id number] #### [facility] ([facility]) [address] [place] [address] HEPATITIS PANEL, ACUTEon HEPATITIS A VIRUS IGM AB PRESENCE IN SER/PLAS Non-Reactive Normal Nonreactive [facility] Comment on above: Performed By: #### L [id number] #### [facility] ([facility]) [address] [place] [address] HEPATITIS B VIRUS CORE AB (PRESENCE) IN SER/PLAS BY IMM Non-Reactive Normal Nonreactive [facility] Comment on above: Performed By: #### L [id number] #### [facility] ([facility]) [address] [place] [address] HEPATITIS B VIRUS SURFACE AG PRESENCE IN SERUM Non-Reactive Normal Nonreactive [facility] Comment on above: Performed By: #### L [id number] #### [facility] ([facility]) [address] [place] [address] HEPATITIS C VIRUS AB PRESENCE IN SERUM Non-Reactive Normal Nonreactive [facility] Comment on above: Performed By: #### L [id number] #### [facility] ([facility]) [address] [place] [address] IGAon 02-27-2024 Magnesium [Mass/Vol] 108 mg/dL Normal 60-413 [facility] Comment on above: Performed By: #### L [id number] #### [facility] ([facility]) [address] [place] [address] IGG 1, 2, 3, AND 4on 024 IgG subclass 1 (S) [Mass/Vol] 293 mg/dL Normal 240-1118 [facility] Comment on above: Result Comment: REFE RENCE INTERVAL: Immunoglobulin G Subclass 1 The total IgG (mg/dL) can be derived from the sum of the subclass IgG1, IgG2, IgG3, and IgG4 values. However, a confirmatory and more precise total IgG is available by the turbidimetric method of quantitation for total IgG. Refer to test Immunoglobulin G, Serum ([id number]). Access complete set of age- and/or gender-specific reference intervals for this test in the [facility] ([employer]). Performed By: #### L [id number] #### [facility] ([facility]) [address] [place] [address] IgG subclass 2 (S) [Mass/Vol] 160 mg/dL Normal 124-549 [facility] Comment on above: Result Comment: REFE RENCE INTERVAL: Immunoglobulin G Subclass 2 Access complete set of age- and/or gender-specific reference intervals for this test in the [facility] ([employer]). Performed By: #### L [id number] #### [facility] ([facility]) [address] [place] [address] IgG subclass 3 (S) [Mass/Vol] 32 mg/dL Normal 21-134 [facility] Comment on above: Result Comment: REFE RENCE INTERVAL: Immunoglobulin G Subclass 3 Access complete set of age- and/or gender-specific reference intervals for this test in the [employer] Test Directory ([employer]). Performed By: #### L [id number] #### [facility] ([facility]) [address] [place] [address] IgG subclass 4 (S) [Mass/Vol] 21 mg/dL Normal 1-123 [facility] Comment on above: Result Comment: REFE RENCE INTERVAL: Immunoglobulin G Subclass 4 Access complete set of age- and/or gender-specific reference intervals for this test in the [facility] ([employer]). Performed By: [facility] [address] [place] [address] Drum Stenciler: Sarwat Gorman MD, PhD CLIA Number: [id number] Performed By: #### L [id number] #### [facility] ([facility]) [address] [place] [address] IRON AND TIBCon 02-27-2024 IRON (UG/DL) IN SER/PLAS 56 ug/dL Normal 50-212 [facility] Comment on above: Performed By: #### L [id number] #### [facility] ([facility]) [address] [place] [address] IRON BINDING CAPACITY (UG/DL) IN SER/PLAS 364 ug/dL Normal 250-450 [facility] Comment on above: Performed By: #### L [id number] #### [facility] ([facility]) [address] [place] [address] IRON BINDING CAPACITY.UNSATURATED (UG/DL) IN SER/PLAS 308.0 ug/dL Normal 155.0-355.0 [facility] Comment on above: Performed By: #### L [id number] #### [facility] ([facility]) [address] [place] [address] IRON SATURATION (%) IN SER/PLAS 15 % Low 20-50 [facility] Comment on above: Performed By: #### L [id number] #### [facility] ([facility]) [address] [place] [address] LIPID PANELon 02-27-2024 CHOL/HDL 2.9 mg/dL Normal [facility] Comment on above: Performed By: #### L [id number] #### [facility] ([facility] [address] [place] [address] Cholesterol [Mass/Vol] 111 mg/dL Low 120-200 [facility] Comment on above: Performed By: #### L [id number] #### [facility] ([facility]) [address] [place] [address] Magnesium [Mass/Vol] 144 mg/dL Normal 40-149 [facility] Comment on above: Result Comment: TRIG LYCERIDE REFERENCE RANGE: 20 YEARS AND OLDER CARDIOVASCULAR RISK LESS THAN 150 mg/dL LOW RISK 150 TO 199 mg/dL BORDERLINE RISK 200 mg/dL AND GREATER HIGH RISK Performed By: #### L [id number] #### [facility] ([facility]) [address] [place] [address] Magnesium [Mass/Vol] 44 mg/dL Normal 0-160 [facility] Comment on above: Performed By: #### L [id number] #### [facility] ([facility]) [address] [place] [address] Magnesium [Mass/Vol] 38 mg/dL Normal 23-92 [facility] Comment on above: Performed By: #### L [id number] #### [facility] ([facility]) [address] [place] [address] NON HDL CHOL. (LDL+VLDL) 73 Normal [facility] Comment on above: Performed By: #### L [id number] #### [facility] ([facility]) [address] [place] [address] TOTAL VLDL-C 29 mg/dL Normal 0-40 [facility] Comment on above: Performed By: #### L [id number] #### [facility] ([facility]) [address] [place] [address] LIVER FIBROSIS CHRONIC VIRAL HEPATITISon 02-27-2024 [id number] , FIBROMETER 328 mg/dL High 131-293 [facility] Comment on above: Performed By: #### L [id number] #### [facility] ([facility]) [address] [place] [address] ALT [Catalytic activity/Vol] 57 U/L High 5-40 [facility] Comment on above: Performed By: #### L [id number] #### [facility] ([facility]) [address] [place] [address] Amylase [Catalytic activity/Vol] 18 U/L Normal 7-33 [facility] Comment on above: Performed By: #### L [id number] #### [facility] ([facility]) [address] [place] [address] AST [Catalytic activity/Vol] 41 U/L High 9-40 [facility] Comment on above: Performed By: #### L [id number] #### [facility] ([facility]) [address] [place] [address] CIRRHOMETER PATIENT SCORE 0.08 Normal [facility] Comment on above: Performed By: #### L [id number] #### [facility] ([facility]) [address] [place] [address] EER FIBROMETER REPORT See Note Normal [facility] Comment on above: Result Comment: Auth orized individuals can access the [facility] Enhanced Report using the following link: [email or web address] Performed By: #### L [id number] #### [facility] ([facility]) [address] [place] [address] FIBROMETER INTERPRETATION See Report Normal [facility] Comment on above: Result Comment: [17] [13] INTERPRETIVE INFORMATION: Fibrometer Interpretation Calculations for the final report are based on accurate data for age, gender, and platelet count. If any of this information needs to be corrected, please contact [facility] Client Services to request a recalculation. Client [...] developed and its performance characteristics determined by [facility]. It has not been cleared or approved by the [place] Food and Drug Administration. This test was performed in a CLIA certified laboratory and is intended for clinical purposes. Performed By: [facility] [address] [place] [address] Drum Stenciler: Sarwat Gorman MD, PhD CLIA Number: [id number] Performed By: #### L [id number] #### [facility] ([facility]) [address] [place] [address] FIBROMETER PATIENT SCORE 0.62 Normal [facility] Comment on above: Performed By: #### L [id number] #### [facility] ([facility]) [address] [place] [address] FIBROMETER PLATELET COUNT 198 k/uL Normal [facility] Comment on above: Performed By: #### L [id number] #### [facility] ([facility]) [address] [place] [address] FIBROMETER PROTHROMBIN INDEX 81 % Low 90-120 [facility] Comment on above: Performed By: #### L [id number] #### [facility] ([facility]) [address] [place] [address] FIBROSIS METAVIR CLASSIFICATION F2[F1-F3] [facility] Comment on above: Result Comment: INTE [...] Performed By: #### L [id number] #### [facility] ([facility]) [address] [place] [address] INFLAMETER METAVIR CLASSIFICATION A1/A2 [facility] Comment on above: Result Comment: INTE RPRETIVE INFORMATION: [employer] Metavir Classification [employer] (activity score) comments A0/A1 Equal probability between A0 and A1 A1/A2 Equal probability between A1 and A2 A2/A3 Equal probability between A2 and A3 Performed By: #### L [id number] #### [facility] ([facility]) [address] [place] [address] INFLAMETER PATIENT SCORE 0.62 [facility] Comment on above: Performed By: #### L [id number] #### [facility] ([facility]) [address] [place] [address] Urea nitrogen [Mass/Vol] 28 mg/dL High 7-20 [facility] Comment on above: Performed By: #### L [id number] #### [facility] ([facility]) [address] [place] [address] Labon 02-27-2024 Lab [id number] Diana Saleem ttrene 1965 F Date Provider Department Center 02/27/2024 2244-[facility] MP LAB RESOURCE MP DRAW Medical [facility]avi Family History Problem Relation Age of Onset Hyperlipidemia Mother Hyperlipidemia Father Hyperlipidemia Brother Heart attack Brother Family Status - Relation Status Age at Mother Father Brother Brother Normal [facility] MITOCHONDRIAL ANTIBODIES, M2 on 02-27-2024 MITOCHONDRIAL M2 ANTIBODY 7.2 Units Normal 0.0-24.9 [facility] Comment on above: Result Comment: REFE [...] does not rule out PBC. Performed By: [facility] [address] [place] [address] Drum Stenciler: Sarwat Gorman MD, PhD CLIA Number: [id number] Performed By: #### L [id number] #### [facility] ([facility]) [address] [place] [address] Office Visiton 02-27-2024 Follow-up visit [id number] SaleemDiana ttrene 1965 F Date Provider Department Center 02/27/2024 DANIELLE GARCIA MP GI [facility] Family History Problem Relation Age of Onset Hyperlipidemia Mother Hyperlipidemia Father Hyperlipidemia Brother Heart attack Brother Family Status - Relation Status Age at Mother Father Brother Brother Level of Service:50563 NM OFFICE/OUTPATIENT NEW MODERATE MDM 45 MINUTES (GC) Reason for Visit and Comments: New Patient [632] Pancreatitis [103927] Normal [facility] PROTIME-INRon 02-27-2024 INR IN PPP BY COAGULATION ASSAY 1.08 Normal 0.90-1.10 [facility] Comment on above: Result Comment: ACC P [...] RANGE. CHEST 1995;108:231S-246S. Performed By: #### L [id number] #### [facility] ([facility]) [address] [place] [address] PROTHROMBIN TIME (PT) IN PPP BY COAGULATION ASSAY 14.0 Seconds Normal 12.3-14.8 [facility] Comment on above: Performed By: #### L [id number] #### [facility] ([facility]) [address] [place] [address] TISSUE TRANSGLUTAMINASE, IGA on 02-27-2024 TISSUE TRANSGLUTAMINASE, IGA <1.02 Normal 0.00-4.99 [facility] Comment on above: Result Comment: INTE [...] indicate a response to therapy. Performed By: [place] [address] Drum Stenciler: Sarwat Gorman MD, PhD CLIA Number: [id number] Performed By: #### L [id number] #### [facility] ([facility]) [address] [place] [address] TSH3 REFLEX TO FT4on 024 THYROTROPIN (MIU/L) IN SER/PLAS BY DETECTION LIMIT <= 0.05 MIU/L 2.02 mIU/L Normal 0.34-5.60 [facility] Comment on above: Performed By: #### L [id number] #### [facility] ([facility]) [address] [place] [address] VITAMIN B12on 02-27-2024 Cobalamin (Vitamin B12) [Mass/Vol] 1862 pg/mL High 180-914 [facility] Comment on above: Result Comment: REFE RENCE RANGES: 180-914 pg/mL Normal 145-179 pg/mL Indeterminate <145 pg/mL Deficient Performed By: #### L [id number] #### [facility] ([facility]) [address] [place] [address] VITAMIN D 25 HYDROXYon 02-26 CALCIDIOL (25 [place] VITAMIN D3) (NG/ML) IN SER/PLAS 62.1 ng/mL Normal 30.0-80.0 [facility] Comment on above: Result Comment: >80. 0 Toxicity possible Performed By: #### L [id number] #### [facility] ([facility]) [address] [place] [address] Orders Onlyon 02-12-2024 Orders Only [id number] Diana Saleem ttrene 1965 F Date Provider Department Center 02/12/2024 [id number], HISTORICAL MP GI Medical [facility] No family history on file Normal [facility] Lab Reportson 01-23-2024 Lab Reports [id number]#1.00TIF F Normal [facility] Lab Reports [id number]#1.00TIF F [facility] Lab Reportson 01-22-2024 Lab Reports [id number]#1.00TIF F [facility] Lab Reports [id number] F [facility] Lab Reports [id number]#1.00TIF F [facility] RAD - MISCon 01-22-2024 RAD - MISC [id number]#1.00TIF F [facility] Surgical Pathology Reporton 06-18-2023 Surgical Pathology Report (NOTE) Path Number: [id number] -- Diagnosis -- ENDOMETRIAL CURETTINGS: -BENIGN ENDOMETRIAL [...] Microscopic Description Microscopic examination performed. Processing Lab: [facility] [address] [place] [address] Interpretation Performed at [address] SURGICAL PATHOLOGY CONSULTATION Patient Name: JOSE ALBERTO SALEEM Med Rec: [id number] [facility] ANATOMIC PATHOLOGY [address] [facility] [place], [place] [address] [facility] US NON OB TRANSVAGINALon US [...] Gaby Tello DO 06/05/23 Final result Normal [facility] Ceruloplasminon 12-12-2022 Ceruloplasmin 30.6 mg/dL 19.0-39.0 mg/dL [facility] Other Ferritinon 12-12-2022 Ferritin [Mass/Vol] 43.5810483 ng/mL Normal 11.0 -306.8 ng/mL [facility] Other Hepatitis A Antibody Totalon 12-12-2022 Hepatitis A Antibody Total Negative . [facility] Other Hepatitis B Surface Antibody on 12-12-2022 Hepatitis B Surface Antibody Non-Reactive Non Reactive [facility] Other Immunoglobulin Javi Immunoglobulin G 823 mg/dL 586-1602 mg/dL [facility] Other Liver-Kidney Microsomal Abon 12-12-2022 Liver-Kidney Microsomal Ab 1.1 0.0-20.0 [facility] Other Mitochondrial (M2) Antibodyo n 12-12-2022 Mitochondrial (M2) Antibody <20.0 0.0-20.0 [facility] Other Smooth Muscle Antibodyon Smooth Muscle Antibody 5 0-19 [facility] Other MR MRCPon 11-10-2022 MR [facility] Other [facility] [employer] Other [facility] [address] [facility] o[address] [employer] Other MR MRCP ANNAMARIA Gomez [id number] [facility] Other MR MRCP MRI Report [facility] Other MR MRCP Signed [facility] Other MR MRCP Patient: Danika Saleem MR#: [id number] [facility] Other MR MRCP 571 [facility] Other MR MRCP : 1965 Acct:[id number] [facility] Other MR MRCP Age/Sex: 57 / F ADM Date: 11/10/22 [facility] Other MRCP Loc: Room: Type: [facility] Other MR MRCP Attending Dr: Evert salinas MD [facility] Other MRCP Copies to: Evert daigle MD [facility] Other MRCP Ordering Provider: Marleny Bruno MD [facility] Other MR MRCP Date of Service: 11/10/22 [facility] Other MR MRCP MR/MR MRCP: Abdominal pain;Common bile duct dilatation;Elevated liver en [facility] Other MR MRCP MRCP [facility] Other MR MRCP CLINICAL DATA: [place] hayley lipase. Abnormal outside abdominal CT [facility] Other MR MRCP COMPARISON: CT abdom en 10/16/2022 [facility] Other MR MRCP Multiecho imaging of the abdomen was performed along with radial imaging of the biliary tree. [facility] Other MR MRCP The gallbladder surgically absent. There is no significant intrahepatic biliary dilatation. The [employer] Other MR MRCP common duct is sligh tly prominent measuring up to 6 mm. It tapers toward the ampulla. No in [facility] Other MR MRCP traluminal filling defects are identified to suggest choledocholithiasis. The pancreatic duct is [place] [employer] Other MR MRCP also borderline prominent measuring 2 - 3 mm. No intrahepatic masses are identified. No pancreatic [facility] [employer] Other MR MRCP abnormalities are no hayley. The spleen and adrenal glands are within normal limits. There is no [facility] Other MR MRCP hydronephrosis. Ther e are right renal cysts. There is no aortic aneurysm. No adenopathy or [facility] Other MR MRCP ascites is seen. The re is no dilated bowel within the [id number]. [facility] Other MR MRCP M R/MR MRCP [facility] Other MR MRCP IMPRESSION: [facility] Other MR MRCP SLIGHTLY PROMINENT COMMON DUCT, WITHOUT CHOLEDOCHOLITHIASIS. THIS MAY RELATE TO PREVIOUS [facility] Other MR MRCP CHOLECYSTECTOMY. [facility] [employer] Other MR MRCP RIGHT RENAL CYSTS. [facility] Other MR MRCP NO OTHER SIGNIFICANT MRI FINDINGS. [facility] Other MR MRCP Impression dictated by: Thelma Wick M.D.11/10/2022 7:00 PM [facility] Other MR MRCP Dictation Location: [address] [employer] Other MR MRCP Transcribed By: BEN 11/10/22 1900 [facility] Other MR MRCP Dictated By: Thelma Wick MD 11/10/22 1850 [facility] Other MR MRCP Signed By: [facility] Other MR MRCP 11/10/22 1900 [facility] Other Albumin [Mass/volume] in Ser um or PlasmaOrdered By: Imad Asaad on 11-01-2022 Albumin [Mass/Vol] 4.0 g/dL 3.2-5.5 [facility] Direct bilirubin measurement Ordered By: Imad Asaad on 11-01-2022 Bilirubin.direct [Mass/Vol] 0.1 mg/dL 0.0-0.4 [facility] Globulin Calc (S) [Mass/Vol] Ordered By: Imad Asaad on 11-01-2022 Globulin (S) [Mass/Vol] 2.5 g/dL [facility] Hepatic Panelon 11-01-2022 Albumin [Mass/Vol] 4.175060 g/dL Normal 3.2-5.5 g/dL [facility] Other ALT [Catalytic activity/Vol] 94 U/L High 10-60 U/L [facility] Other Bilirubin [Mass/Vol] 0.7178413 mg/dL Normal 0.3- 1.2 mg/dL [facility] Other Bilirubin.indirect [Mass/Vol] 0.4808252 mg/dL Normal 0.0-0.4 mg/dL [facility] Other Protein [Mass/Vol] 6.061180 g/dL Normal 6.1-7.9 g/dL [facility] [employer] Other Hepatic Panel 0.5 mg/dL [facility] Other Hepatic Panel 2.5 g/dL [facility] Other Protein [Mass/volume] in Ser um or PlasmaOrdered By: Imad Asaad on 11-01-2022 Protein [Mass/Vol] 6.5 g/dL 6.1-7.9 [facility] Serum or plasma alanine li otransferase measurement without P-5'-P (enzymatic activiOrdered By: [facility] on 11-01-2022 ALT No additional P-5'-P [Catalytic activity/Vol] 94 U/L 10-60 [facility] Serum or plasma albumin/glob ulin mass ratioOrdered By: [facility] on 11-01-2022 Albumin/Globulin [Mass ratio] 1.6 {ratio} [facility] Serum or plasma alkaline monster sphatase measurement (enzymatic activity/volume)Ordered By: [facility] on 11-01-2022 ALP [Catalytic activity/Vol] 93 U/L 32-92 [facility] Serum or plasma aspartate am inotransferase measurement (enzymatic activity/volume)Ordered By: [facility] on 11-01-2022 AST [Catalytic activity/Vol] 66 U/L 10-42 [facility] Serum or plasma non-glucuron idated bilirubin measurement (mass/volume)Ordered By: [facility] on 11-01-2022 Bilirubin.indirect [Mass/Vol] 0.5 mg/dL [facility] Serum or plasma total biliru bin measurement (mass/volume)Ordered By: [facility] on 11-01-2022 Bilirubin [Mass/Vol] 0.6 mg/dL 0.3-1.[address] [facility] [address] ABDOMEN WO/W CONon 2022 CT [...] by: JAE WILSON Date: 2022-10-17 08:23 Normal [facility] AMMONIAon 10-09-2022 Ammonia (P) [Moles/Vol] 10 umol/L Critically low 11-32 [facility] Comment on above: Performed By: #### A MY #### [facility] [address] [place] [address] Dr. Ayden Cam AMYLASEon 10-09-2022 Amylase [Catalytic activity/Vol] 144 U/L Critically high 25-115 [facility] Comment on above: Performed By: #### L IPA #### [facility] [address] [place] [address] Dr. Ayden Cam CBC AUTO DIFFon 10-09-2022 BASO # 0.0 103/ul Normal 0.0-0.1 [facility] Comment on above: Performed By: #### C BC #### [facility] [address] [place] [address] Dr. Ayden Cam Basophils/100 WBC (Bld) 0.2 % Normal 0.2-2.0 [facility] Comment on above: Performed By: #### C BC #### [facility] [address] [place] [address] Dr. Ayden Cam EO # 0.2 103/ul Normal 0.0-0.7 [facility] Comment on above: Performed By: #### C BC #### [facility] [address] [place] [address] Dr. Ayden Cam Eosinophils/100 WBC (Bld) 3.3 % Normal 0.9-7.0 [facility] Comment on above: Performed By: #### C BC #### [facility] [address] [place] [address] Dr. Ayden Cam Erythrocyte distribution width (RBC) [Ratio] 12.1 % Normal 11.0-15.0 [facility] Comment on above: Performed By: #### C BC #### [facility] [address] [place] [address] Dr. Ayden Cam Hematocrit (Bld) [Volume fraction] 40.0 % Normal 36.0-48.0 [facility] Comment on above: Performed By: #### C BC #### [facility] [address] [place] [address] Dr. Ayden Cam Hemoglobin (Bld) [Mass/Vol] 14.2 g/dL Normal 12.0-16.0 [facility] Comment on above: Performed By: #### C BC #### [facility] [address] [place] [address] Dr. Ayden Cam IG # 0.01 10e3/ul Normal 0.00-0.03 [facility] Comment on above: Performed By: #### C BC #### [facility] [address] [place] [address] Dr. Ayden Cam IG % 0.2 % Normal 0.0-0.5 [facility] Comment on above: Performed By: #### C BC #### [facility] [address] [place] [address] Dr. Ayden Cam LYMPH # 1.5 103/ul Normal 1.2-3.8 [facility] Comment on above: Performed By: #### C BC #### [facility] [address] [place] [address] Dr. Ayden Cam Lymphocytes/100 WBC (Bld) 24.2 % Normal 20.5-60.0 [facility] Comment on above: Performed By: #### C BC #### [facility] [address] [place] [address] Dr. Ayden Cam MANUAL DIFF REQ NO Normal [facility] Comment on above: Performed By: #### C BC #### [facility] [address] [place] [address] Dr. Ayden Cam MCH (RBC) [Entitic mass] 30.0 pg Normal 26.7-34.0 [facility] Comment on above: Performed By: #### C BC #### [facility] [address] [place] [address] Dr. Ayden Cam MCHC (RBC) [Mass/Vol] 35.5 g/dL Critically high 29.9-35.2 [facility] Comment on above: Performed By: #### C BC #### [facility] [address] [place] [address] Dr. Ayden Cam MCV (RBC) [Entitic vol] 84.4 fL Normal 81.0-99.0 [facility] Comment on above: Performed By: #### C BC #### [facility] [address] [place] [address] Dr. Ayden Cam MONO # 0.6 103/ul Normal 0.3-0.8 [facility] Comment on above: Performed By: #### C BC #### [facility] [address] [place] [address] Dr. Ayden Cam Monocytes/100 WBC (Bld) 10.3 % Normal 1.7-12.0 [facility] Comment on above: Performed By: #### C BC #### [facility] [address] [place] [address] Dr. Ayden Cam NEUT # 3.7 103/ul Normal 1.4-6.5 [facility] Comment on above: Performed By: #### C BC #### [facility] [address] [place] [address] Dr. Ayden Cam Neutrophils/100 WBC (Bld) 61.8 % Normal 43.0-75.0 [facility] Comment on above: Performed By: #### C BC #### [facility] [address] [place] [address] Dr. Ayden Cam Platelet mean volume (Bld) [Entitic vol] 9.0 fL Critically low 9.5-13.5 [facility] Comment on above: Performed By: #### C BC #### [facility] [address] [place] [address] Dr. Ayden Cam PLT 191 103/ul Normal 150-450 [facility] Comment on above: Performed By: #### C BC #### [facility] [address] [place] [address] Dr. Ayden Cam RBC 4.74 106/ul Normal 4.20-5.40 [facility] Comment on above: Performed By: #### C BC #### [facility] [address] [place] [address] Dr. Ayden Cam WBC 6.0 103/ul Normal 4.0-11.0 [facility] Comment on above: Performed By: #### C BC #### [facility] [address] [place] [address] Dr. Ayden Cam LIPASEon 10-09-2022 Lipase [Catalytic activity/Vol] 168.0 U/L Normal 73.0-393.0 [facility] Comment on above: Performed By: #### L ACT #### [facility] [address] [place] [address] Dr. Ayden Cam PROF 14(COMP METB)on 023 Albumin [Mass/Vol] 3.6 g/dL Normal 3.4-5.0 [facility] Comment on above: Performed By: #### L IPA #### [facility] [address] [place] [address] Dr. Ayden Cam Albumin/Globulin [Mass ratio] 1.1 {ratio} Normal [facility] Comment on above: Performed By: #### L IPA #### [facility] [address] [place] [address] Dr. Ayden Cam ALP [Catalytic activity/Vol] 93 U/L Normal 46-116 [facility] Comment on above: Performed By: #### L IPA #### [facility] [address] [place] [address] Dr. Aydne Cam ALT [Catalytic activity/Vol] 52 U/L Normal 14-59 [facility] Comment on above: Performed By: #### L IPA #### [facility] [address] [place] [address] Dr. Ayden Cam Anion gap [Moles/Vol] 10.2 mmol/L Normal [facility] Comment on above: Performed By: #### L IPA #### [facility] [address] [place] [address] Dr. Ayden Cam AST [Catalytic activity/Vol] 33 U/L Normal 15-37 [facility] Comment on above: Performed By: #### L IPA #### [facility] [address] [address] [address] Ayden Cam Bilirubin [Mass/Vol] 0.3 mg/dL Normal 0.2-1.0 [facility] Comment on above: Performed By: #### L IPA #### [facility] [address] [place] [address] Dr. Ayden Cam Calcium [Mass/Vol] 9.4 mg/dL Normal 8.5-10.1 [facility] Comment on above: Performed By: #### L IPA #### [facility] [address] [place] [address] Dr. Ayden Cam Chloride [Moles/Vol] 99 mmol/L Normal 98-107 [facility] Comment on above: Performed By: #### L IPA #### [facility] [address] [place] [address] Dr. Ayden Cam CO2 [Moles/Vol] 33.7 mmol/L Critically high 21.0-32.0 [facility] Comment on above: Performed By: #### L IPA #### [facility] [address] [place] [address] Dr. Ayden Cam Creatinine [Mass/Vol] 0.62 mg/dL Normal 0.55-1.02 [facility] Comment on above: Performed By: #### L IPA #### [facility] [address] [place] [address] Dr. Ayden Cam EGFR-AF BELARUSIAN >60 Normal >=[address] [facility] Comment on above: Performed By: #### L IPA #### [facility] [address] [place] [address] Dr. Ayden Cam EGFR-NON AF BELARUSIAN >60 Normal >=60 [facility] Comment on above: Performed By: #### L IPA #### [facility] [address] [address] Dr. Ayden Cam Globulin (S) [Mass/Vol] 3.4 g/dL Normal [facility] Comment on above: Performed By: #### L IPA #### [facility] [address] [address] [address] Ayden Cam Glucose [Mass/Vol] 105 mg/dL Normal 74-106 [facility] Comment on above: Performed By: #### L IPA #### [facility] [address] [address] [address] Ayden Cam Potassium [Moles/Vol] 3.9 mmol/L Normal 3.5-5.1 [facility] Comment on above: Performed By: #### L IPA #### [facility] [address] [address] [address] Ayden Cam Protein [Mass/Vol] 7.0 g/dL Normal 6.4-8.2 [facility] Comment on above: Performed By: #### L IPA #### [facility] [address] [address] [address] Ayden Cam Sodium [Moles/Vol] 139 mmol/L Normal 136-145 [facility] Comment on above: Performed By: #### L IPA #### [facility] [address] [address] [address] Ayden Cam Urea nitrogen [Mass/Vol] 28.0 mg/dL Critically high 7.0-18.0 [facility] Comment on above: Performed By: #### L IPA #### [facility] [address] [address] [address] Ayden Cam Urea nitrogen/Creatinine [Mass ratio] 45.2 mg/mg Normal [facility] Comment on above: Performed By: #### L IPA #### [facility] [address] [address] [address] Ayden Cam AMMONIAon 10-06-2022 Ammonia (P) [Moles/Vol] 16 umol/L Normal 11-32 [facility] Comment on above: Performed By: #### A MM #### [facility] [address] [place] [address] Dr. Ayden Cam AMYLASEon 10-06-2022 Amylase [Catalytic activity/Vol] 189 U/L Critically high 25-115 [facility] Comment on above: Performed By: #### L IPA #### [facility] [address] [place] [address] Dr. Ayden Cam CBC AUTO DIFFon 10-06-2022 BASO # 0.0 103/ul Normal 0.0-0.1 [facility] Comment on above: Performed By: #### C BC #### [facility] [address] [place] [address] Dr. Ayden Cam Basophils/100 WBC (Bld) 0.2 % Normal 0.2-2.0 [facility] Comment on above: Performed By: #### C BC #### [facility] [address] [place] [address] Dr. Ayden Cam EO # 0.3 103/ul Normal 0.0-0.7 [facility] Comment on above: Performed By: #### C BC #### [facility] [address] [place] [address] Dr. Ayden Cam Eosinophils/100 WBC (Bld) 5.2 % Normal 0.9-7.0 [facility] Comment on above: Performed By: #### C BC #### [facility] [address] [place] [address] Dr. Ayden Cam Erythrocyte distribution width (RBC) [Ratio] 12.3 % Normal 11.0-15.0 [facility] Comment on above: Performed By: #### C BC #### [facility] [address] [place] [address] Dr. yAden Cam Hematocrit (Bld) [Volume fraction] 36.9 % Normal 36.0-48.0 [facility] Comment on above: Performed By: #### C BC #### [facility] [address] [place] [address] Dr. Ayden Cam Hemoglobin (Bld) [Mass/Vol] 12.4 g/dL Normal 12.0-16.0 [facility] Comment on above: Performed By: #### C BC #### [facility] [address] [place] [address] Dr. Ayden Cam IG # 0.01 10e3/ul Normal 0.00-0.03 [facility] Comment on above: Performed By: #### C BC #### [facility] [address] [place] [address] Dr. Ayden Cam IG % 0.2 % Normal 0.0-0.5 [facility] Comment on above: Performed By: #### C BC #### [facility] [address] [place] [address] Dr. Ayden Cam LYMPH # 1.8 103/ul Normal 1.2-3.8 [facility] Comment on above: Performed By: #### C BC #### [facility] [address] [place] [address] Dr. Ayden Cam Lymphocytes/100 WBC (Bld) 31.3 % Normal 20.5-60.0 [facility] Comment on above: Performed By: #### C BC #### [facility] [address] [place] [address] Dr. Ayden Cam MANUAL DIFF REQ NO Normal [facility] Comment on above: Performed By: #### C BC #### [facility] [address] [place] [address] Dr. Ayden Cam MCH (RBC) [Entitic mass] 30.0 pg Normal 26.7-34.0 [facility] Comment on above: Performed By: #### C BC #### [facility] [address] [place] [address] Dr. Ayden Cam MCHC (RBC) [Mass/Vol] 33.6 g/dL Normal 29.9-35.2 [facility] Comment on above: Performed By: #### C BC #### [facility] [address] [place] [address] Dr. Ayden Cam MCV (RBC) [Entitic vol] 89.1 fL Normal 81.0-99.0 [facility] Comment on above: Performed By: #### C BC #### [facility] [address] [address] [address] Ayden Cam MONO # 0.6 103/ul Normal 0.3-0.8 [facility] Comment on above: Performed By: #### C BC #### [facility] [address] [address] [address] Ayden Cam Monocytes/100 WBC (Bld) 10.1 % Normal 1.7-12.0 [facility] Comment on above: Performed By: #### C BC #### [facility] [address] [address] [address] Ayden Cam NEUT # 3.1 103/ul Normal 1.4-6.5 [facility] Comment on above: Performed By: #### C BC #### [facility] [address] [address] [address] Ayden Cam Neutrophils/100 WBC (Bld) 53.0 % Normal 43.0-75.0 [facility] Comment on above: Performed By: #### C BC #### [facility] [address] [address] [address] Ayden Cam Platelet mean volume (Bld) [Entitic vol] 9.4 fL Critically low 9.5-13.5 [facility] Comment on above: Performed By: #### C BC #### [facility] [address] [address] [address] Ayden Cam PLT 153 103/ul Normal 150-450 [facility] Comment on above: Performed By: #### C BC #### [facility] [address] [address] [address] Ayden Cam RBC 4.14 106/ul Critically low 4.20-5.40 [facility] Comment on above: Performed By: #### C BC #### [facility] [address] [address] [address] Ayden Cam WBC 5.8 103/ul Normal 4.0-11.0 [facility] Comment on above: Performed By: #### C BC #### [facility] [address] [place] [address] Dr. Ayden Cam LIPASEon 10-06-2022 Lipase [Catalytic activity/Vol] 166.0 U/L Normal 73.0-393.0 [facility] Comment on above: Performed By: #### L IPA #### [facility] [address] [place] [address] Dr. Ayden Cam LIVER PROFILEon 10-06-2022 Albumin [Mass/Vol] 3.2 g/dL Critically low 3.4-5.0 [facility] Comment on above: Performed By: #### L IPA #### [facility] [address] [place] [address] Dr. Ayden Cam Albumin/Globulin [Mass ratio] 1.3 {ratio} Normal [facility] Comment on above: Performed By: #### L IPA #### [facility] [address] [place] [address] Dr. Ayden Cam ALP [Catalytic activity/Vol] 88 U/L Normal 46-116 [facility] Comment on above: Performed By: #### L IPA #### [facility] [address] [place] [address] Dr. Ayden Cam ALT [Catalytic activity/Vol] 66 U/L Critically high 14-59 [facility] Comment on above: Performed By: #### L IPA #### [facility] [address] [place] [address] Dr. Ayden Cam AST [Catalytic activity/Vol] 39 U/L Critically high 15-37 [facility] Comment on above: Performed By: #### L IPA #### [facility] [address] [place] [address] Dr. Ayden Cam BILI, CONJUGATED 0.1 mg/dL Normal 0.0-0.[address] [facility] Comment on above: Performed By: #### L IPA #### [facility] [address] [place] [address] Dr. Ayden Cam Bilirubin [Mass/Vol] 0.4 mg/dL Normal 0.2-1.0 [facility] Comment on above: Performed By: #### L IPA #### [facility] [address] [address] [address] Ayden Cam Globulin (S) [Mass/Vol] 2.4 g/dL Normal [facility] Comment on above: Performed By: #### L IPA #### [facility] [address] [address] [address] Ayden Cam Protein [Mass/Vol] 5.6 g/dL Critically low 6.4-8.2 [facility] Comment on above: Performed By: #### L IPA #### [facility] [address] [place] [address] Dr. Ayden Cam PROF CHEM 8 (BAS METB)on Anion gap [Moles/Vol] 6.8 mmol/L Normal [facility] Comment on above: Performed By: #### L IPA #### [facility] [address] [place] [address] Dr. Ayden Cam Calcium [Mass/Vol] 8.6 mg/dL Normal 8.5-10.1 [facility] Comment on above: Performed By: #### L IPA #### [facility] [address] [place] [address] Dr. Ayden Cam Chloride [Moles/Vol] 102 mmol/L Normal 98-107 [facility] Comment on above: Performed By: #### L IPA #### [facility] [address] [place] [address] Dr. Ayden Cam CO2 [Moles/Vol] 32.6 mmol/L Critically high 21.0-32.0 [facility] Comment on above: Performed By: #### L IPA #### [facility] [address] [place] [address] Dr. Ayden Cam Creatinine [Mass/Vol] 0.61 mg/dL Normal 0.55-1.02 [facility] Comment on above: Performed By: #### L IPA #### [facility] [address] [place] [address] Dr. Ayden Cam EGFR-AF BELARUSIAN >60 Normal >=[address] [facility] Comment on above: Performed By: #### L IPA #### [facility] [address] [address] [address] Ayden Cam EGFR-NON AF BELARUSIAN >60 Normal >=60 [facility] Comment on above: Performed By: #### L IPA #### [facility] [address] [address] [address] Ayden Cam Glucose [Mass/Vol] 91 mg/dL Normal 74-106 [facility] Comment on above: Performed By: #### L IPA #### [facility] [address] [address] [address] Ayden Cam Potassium [Moles/Vol] 3.4 mmol/L Critically low 3.5-5.1 [facility] Comment on above: Performed By: #### L IPA #### [facility] [address] [address] [address] Ayden Cam Sodium [Moles/Vol] 138 mmol/L Normal 136-145 [facility] Comment on above: Performed By: #### L IPA #### [facility] [address] [address] [address] Ayden Cam Urea nitrogen [Mass/Vol] 13.0 mg/dL Normal 7.0-18.0 [facility] Comment on above: Performed By: #### L IPA #### [facility] [address] [place] [address] Dr. Ayden Cam Urea nitrogen/Creatinine [Mass ratio] 21.3 mg/mg Normal [facility] Comment on above: Performed By: #### L IPA #### [facility] [address] [address] [address] Ayden Cam AMMONIAon 10-05-2022 Ammonia (P) [Moles/Vol] 10 umol/L Critically low 11-32 [facility] Comment on above: Performed By: #### A MM #### [facility] [address] [address] [address] Ayden Cam AMYLASEon 10-05-2022 Amylase [Catalytic activity/Vol] 109 U/L Normal 25-115 [facility] Comment on above: Performed By: #### A MY #### [facility] [address] [address] [address] Ayden Cam CBC AUTO DIFFon 10-05-2022 BASO # 0.0 103/ul Normal 0.0-0.1 [facility] Comment on above: Performed By: #### L IPA #### [facility] [address] [address] [address] Ayden Cam Basophils/100 WBC (Bld) 0.3 % Normal 0.2-2.0 [facility] Comment on above: Performed By: #### L IPA #### [facility] [address] [address] [address] Ayden Cam EO # 0.3 103/ul Normal 0.0-0.7 [facility] Comment on above: Performed By: #### L IPA #### [facility] [address] [place] [address] Dr. Ayden Cam Eosinophils/100 WBC (Bld) 4.3 % Normal 0.9-7.0 [facility] Comment on above: Performed By: #### L IPA #### [facility] [address] [place] [address] Dr. Ayden Cam Erythrocyte distribution width (RBC) [Ratio] 12.2 % Normal 11.0-15.0 [facility] Comment on above: Performed By: #### L IPA #### [facility] [address] [place] [address] Dr. Ayden Cam Hematocrit (Bld) [Volume fraction] 38.9 % Normal 36.0-48.0 [facility] Comment on above: Performed By: #### L IPA #### [facility] [address] [place] [address] Dr. Ayden Cam Hemoglobin (Bld) [Mass/Vol] 12.8 g/dL Normal 12.0-16.0 [facility] Comment on above: Performed By: #### L IPA #### [facility] [address] [place] [address] Dr. Ayden Cam IG # 0.01 10e3/ul Normal 0.00-0.03 [facility] Comment on above: Performed By: #### L IPA #### [facility] [address] [place] [address] Dr. Ayden Cam IG % 0.2 % Normal 0.0-0.5 [facility] Comment on above: Performed By: #### L IPA #### [facility] [address] [place] [address] Dr. Ayden Cam LYMPH # 1.9 103/ul Normal 1.2-3.8 [facility] Comment on above: Performed By: #### L IPA #### [facility] [address] [place] [address] Dr. Ayden Cam Lymphocytes/100 WBC (Bld) 31.4 % Normal 20.5-60.0 [facility] Comment on above: Performed By: #### L IPA #### [facility] [address] [place] [address] Dr. Ayden Cam MANUAL DIFF REQ NO Normal [facility] Comment on above: Performed By: #### L IPA #### [facility] [address] [place] [address] Dr. Ayden Cam MCH (RBC) [Entitic mass] 29.6 pg Normal 26.7-34.0 [facility] Comment on above: Performed By: #### L IPA #### [facility] [address] [place] [address] Dr. Ayden Cam MCHC (RBC) [Mass/Vol] 32.9 g/dL Normal 29.9-35.2 [facility] Comment on above: Performed By: #### L IPA #### [facility] [address] [place] [address] Dr. Ayden Cam MCV (RBC) [Entitic vol] 89.8 fL Normal 81.0-99.0 [facility] Comment on above: Performed By: #### L IPA #### [facility] [address] [place] [address] Dr. Ayden Cam MONO # 0.6 103/ul Normal 0.3-0.8 [facility] Comment on above: Performed By: #### L IPA #### [facility] [address] [place] [address] Dr. Ayden Cam Monocytes/100 WBC (Bld) 10.1 % Normal 1.7-12.0 [facility] Comment on above: Performed By: #### L IPA #### [facility] [address] [place] [address] Dr. Ayden Cam NEUT # 3.2 103/ul Normal 1.4-6.5 [facility] Comment on above: Performed By: #### L IPA #### [facility] [address] [place] [address] Dr. Ayden Cam Neutrophils/100 WBC (Bld) 53.7 % Normal 43.0-75.0 [facility] Comment on above: Performed By: #### L IPA #### [facility] [address] [place] [address] Dr. Ayden Cam Platelet mean volume (Bld) [Entitic vol] 9.7 fL Normal 9.5-13.5 [facility] Comment on above: Performed By: #### L IPA #### [facility] [address] [place] [address] Dr. Ayden Cam PLT 168 103/ul Normal 150-450 [facility] Comment on above: Performed By: #### L IPA #### [facility] [address] [place] [address] Dr. Ayden Cam RBC 4.33 106/ul Normal 4.20-5.40 [facility] Comment on above: Performed By: #### L IPA #### [facility] [address] [place] [address] Dr. Ayden Cam WBC 6.0 103/ul Normal 4.0-11.0 [facility] Comment on above: Performed By: #### L IPA #### [facility] [address] [place] [address] Dr. Ayden Cam LIPASEon 10-05-2022 Lipase [Catalytic activity/Vol] 151.0 U/L Normal 73.0-393.0 [facility] Comment on above: Performed By: #### L IPA #### [facility] [address] [place] [address] Dr. Ayden Cam LIVER PROFILEon 10-05-2022 Albumin [Mass/Vol] 3.2 g/dL Critically low 3.4-5.0 [facility] Comment on above: Performed By: #### L ACT #### [facility] [address] [place] [address] Dr. Ayden Cam Albumin/Globulin [Mass ratio] 1.1 {ratio} Normal [facility] Comment on above: Performed By: #### L ACT #### [facility] [address] [place] [address] Dr. Ayden Cam ALP [Catalytic activity/Vol] 82 U/L Normal 46-116 [facility] Comment on above: Performed By: #### L ACT #### [facility] [address] [place] [address] Dr. Ayden Cam ALT [Catalytic activity/Vol] 70 U/L Critically high 14-59 [facility] Comment on above: Performed By: #### L ACT #### [facility] [address] [place] [address] Dr. Ayden Cam AST [Catalytic activity/Vol] 36 U/L Normal 15-37 [facility] Comment on above: Performed By: #### L ACT #### [facility] [address] [place] [address] Dr. Ayden Cam BILI, CONJUGATED 0.1 mg/dL Normal 0.0-0.[address] [facility] Comment on above: Performed By: #### L ACT #### [facility] [address] [place] [address] Dr. Ayden Cam Bilirubin [Mass/Vol] 0.3 mg/dL Normal 0.2-1.0 [facility] Comment on above: Performed By: #### L ACT #### [facility] [address] [place] [address] Dr. Ayden Cam Globulin (S) [Mass/Vol] 3.0 g/dL Normal [facility] Comment on above: Performed By: #### L ACT #### [facility] [address] [place] [address] Dr. Ayden Cam Protein [Mass/Vol] 6.2 g/dL Critically low 6.4-8.2 [facility] Comment on above: Performed By: #### L ACT #### [facility] [address] [place] [address] Dr. Ayden Cam PROF CHEM 8 (BAS METB)on Anion gap [Moles/Vol] 9.5 mmol/L Normal [facility] Comment on above: Performed By: #### B MP #### [facility] [address] [address] [address] Ayden Cam Calcium [Mass/Vol] 8.9 mg/dL Normal 8.5-10.1 [facility] Comment on above: Performed By: #### B MP #### [facility] [address] [place] [address] Dr. Ayden Cam Chloride [Moles/Vol] 105 mmol/L Normal 98-107 [facility] Comment on above: Performed By: #### B MP #### [facility] [address] [place] [address] Dr. Ayden Cam CO2 [Moles/Vol] 29.6 mmol/L Normal 21.0-32.[address] [facility] Comment on above: Performed By: #### B MP #### [facility] [address] [place] [address] Dr. Ayden Cam Creatinine [Mass/Vol] 0.56 mg/dL Normal 0.55-1.02 [facility] Comment on above: Performed By: #### B MP #### [facility] [address] [place] [address] Dr. Ayden Cam EGFR-AF BELARUSIAN >60 Normal >=[address] [facility] Comment on above: Performed By: #### B MP #### [facility] [address] [place] [address] Dr. Ayden Cam EGFR-NON AF BELARUSIAN >60 Normal >=60 [facility] Comment on above: Performed By: #### B MP #### [facility] [address] [place] [address] Dr. Ayden Cam Glucose [Mass/Vol] 88 mg/dL Normal 74-[address] [facility] Comment on above: Performed By: #### B MP #### [facility] [address] [place], [place] [address] Dr. Ayden Cam Potassium [Moles/Vol] 4.1 mmol/L Normal 3.5-5.1 [facility] Comment on above: Performed By: #### B MP #### [facility] [address] [place], [place] [address] Dr. Ayden Cam Sodium [Moles/Vol] 140 mmol/L Normal 136-145 [facility] Comment on above: Performed By: #### B MP #### [facility] [address] [id number] Ayden Cam Urea nitrogen [Mass/Vol] 15.0 mg/dL Normal 7.0-18.0 [facility] Comment on above: Performed By: #### B MP #### [facility] [address] [id number] Ayden Cam Urea nitrogen/Creatinine [Mass ratio] 26.8 mg/mg Normal [facility] Comment on above: Performed By: #### B MP #### [facility] [address] [place], [place] [address] Dr. Ayden Cam US Jhony 10-05-2022 US [...] RONAN TORIBIO Date: 2022-10-05 09:52 Normal [facility] XR KUB 1 VIEWon 10-05-2022 XR [...] RONAN TORIBIO Date: 2022-10-05 09:55 Normal [facility] AMYLASEon 10-04-2022 Amylase [Catalytic activity/Vol] 124 U/L Critically high 25-115 [facility] Comment on above: Performed By: #### L IPA, COLE, CMP #### [facility] [address] [place] [address] Dr. Ayden Cam CBC AUTO DIFFon 10-04-2022 BASO # 0.0 103/ul Normal 0.0-0.1 [facility] Comment on above: Performed By: #### L IPA #### [facility] [address] [place] [address] Dr. Ayden Cam Basophils/100 WBC (Bld) 0.3 % Normal 0.2-2.0 [facility] Comment on above: Performed By: #### L IPA #### [facility] [address] [place] [address] Dr. Ayden Cam EO # 0.2 103/ul Normal 0.0-0.7 [facility] Comment on above: Performed By: #### L IPA #### [facility] [address] [place] [address] Dr. Ayden Cam Eosinophils/100 WBC (Bld) 2.9 % Normal 0.9-7.0 [facility] Comment on above: Performed By: #### L IPA #### [facility] [address] [place] [address] Dr. Ayden Cam Erythrocyte distribution width (RBC) [Ratio] 12.3 % Normal 11.0-15.0 [facility] Comment on above: Performed By: #### L IPA #### [facility] [address] [place] [address] Dr. Ayden Cam Hematocrit (Bld) [Volume fraction] 42.0 % Normal 36.0-48.0 [facility] Comment on above: Performed By: #### L IPA #### [facility] [address] [place] [address] Dr. Ayden Cam Hemoglobin (Bld) [Mass/Vol] 14.3 g/dL Normal 12.0-16.0 [facility] Comment on above: Performed By: #### L IPA #### [facility] [address] [place] [address] Dr. Ayden Cam IG # 0.02 10e3/ul Normal 0.00-0.03 [facility] Comment on above: Performed By: #### L IPA #### [facility] [address] [place] [address] Dr. Ayden Cam IG % 0.3 % Normal 0.0-0.5 [facility] Comment on above: Performed By: #### L IPA #### [facility] [address] [place] [address] Dr. Ayden Cam LYMPH # 1.7 103/ul Normal 1.2-3.8 [facility] Comment on above: Performed By: #### L IPA #### [facility] [address] [place] [address] Dr. Ayden Cam Lymphocytes/100 WBC (Bld) 22.5 % Normal 20.5-60.0 [facility] Comment on above: Performed By: #### L IPA #### [facility] [address] [place] [address] Dr. Ayden Cam MANUAL DIFF REQ NO Normal [facility] Comment on above: Performed By: #### L IPA #### [facility] [address] [place] [address] Dr. Ayden Cam MCH (RBC) [Entitic mass] 30.1 pg Normal 26.7-34.0 [facility] Comment on above: Performed By: #### L IPA #### [facility] [address] [place] [address] Dr. Ayden Cam MCHC (RBC) [Mass/Vol] 34.0 g/dL Normal 29.9-35.2 [facility] Comment on above: Performed By: #### L IPA #### [facility] [address] [place] [address] Dr. Ayden Cam MCV (RBC) [Entitic vol] 88.4 fL Normal 81.0-99.0 [facility] Comment on above: Performed By: #### L IPA #### [facility] [address] [place] [address] Dr. Ayden Cam MONO # 0.5 103/ul Normal 0.3-0.8 [facility] Comment on above: Performed By: #### L IPA #### [facility] [address] [place] [address] Dr. Ayden Cam Monocytes/100 WBC (Bld) 6.0 % Normal 1.7-12.0 [facility] Comment on above: Performed By: #### L IPA #### [facility] [address] [place] [address] Dr. Ayden Cam NEUT # 5.2 103/ul Normal 1.4-6.5 [facility] Comment on above: Performed By: #### L IPA #### [facility] [address] [place] [address] Dr. Ayden Cam Neutrophils/100 WBC (Bld) 68.0 % Normal 43.0-75.0 [facility] Comment on above: Performed By: #### L IPA #### [facility] [address] [place] [address] Dr. Ayden Cam Platelet mean volume (Bld) [Entitic vol] 9.6 fL Normal 9.5-13.5 [facility] Comment on above: Performed By: #### L IPA #### [facility] [address] [place] [address] Dr. Ayden Cam PLT 183 103/ul Normal 150-450 [facility] Comment on above: Performed By: #### L IPA #### [facility] [address] [place] [address] Dr. Ayden aCm RBC 4.75 106/ul Normal 4.20-5.40 [facility] Comment on above: Performed By: #### L IPA #### [facility] [address] [place], [place] [id number] Dr. Ayedn Cam WBC 7.6 103/ul Normal 4.0-11.0 [facility] Comment on above: Performed By: #### L IPA #### [facility] [address] [place] [address] Dr. Ayden Cam Covid-19 PCR ([facility])on SARS-CoV-2 (COVID-19) RNA LOWELL+probe Ql (Unsp spec) Not detected Normal NOT DETECTED [facility] Comment on above: Result Comment: When [...] for this test is supported by the [place] of Health and Human Service's declaration that [...] used). Performed By: #### L IPA #### [facility] [address] [place] [address] Dr. Ayden Cam ER URINE PROFILEon 3 Bilirubin Ql (U) Negative Normal NEGATIVE [facility] Comment on above: Performed By: #### L ACT #### [facility] [address] [place] [address] Dr. Ayden Cam Clarity (U) CLEAR Normal CLEAR [facility] Comment on above: Performed By: #### L ACT #### [facility] [address] [place] [address] Dr. Ayden Cam Color (U) LT. YELLOW Normal YELLOW [facility] Comment on above: Performed By: #### L ACT #### [facility] [address] [address] [address] Ayden Cam ERUAHD A micrscopic examina tion will be performed if indicated. Normal [facility] Comment on above: Performed By: #### L ACT #### [facility] [address] [place] [address] Dr. Ayden Cam Glucose Ql (U) Negative Normal NEGATIVE [facility] Comment on above: Performed By: #### L ACT #### [facility] [address] [place] [address] Dr. Ayden Cam Hemoglobin Ql (U) Negative Normal NEGATIVE [facility] Comment on above: Performed By: #### L ACT #### [facility] [address] [place] [address] Dr. Ayden Cam Ketones Ql (U) Negative Normal NEGATIVE [facility] Comment on above: Performed By: #### L ACT #### [facility] [address] [place] [address] Dr. Ayden Cam LEUKOCYTES Negative Normal NEGATIVE [facility] Comment on above: Performed By: #### L ACT #### [facility] [address] [place] [address] Dr. Ayden Cam Nitrite Ql (U) Negative Normal NEGATIVE [facility] Comment on above: Performed By: #### L ACT #### [facility] [address] [place] [address] Dr. Ayden Cam pH (U) 8.5 [pH] Normal 5-9 [facility] Comment on above: Performed By: #### L ACT #### [facility] [address] [place] [address] Dr. Ayden Cam SPEC GRAVITY 1.015 Normal 1.005-<=1.02 5 [facility] Comment on above: Performed By: #### L ACT #### [facility] [address] [place] [address] Dr. Ayden Cam UA PROTEIN Negative Normal NEGATIVE/ TRACE [facility] Comment on above: Performed By: #### L ACT #### [facility] [address] [place] [address] Dr. Ayden Cam UR MICRO IND NOT INDICATED Normal [facility] Comment on above: Performed By: #### L ACT #### [facility] [address] [place] [address] Dr. Ayden Cam Urobilinogen Qn (U) 0.2 {Peggy'U}/dL Normal 0.2 - 1. 0 [facility] Comment on above: Performed By: #### L ACT #### [facility] [address] [place] [address] Dr. Ayden Cam LACTATE/LACTIC ACIDon 2022 Lactate [Moles/Vol] 0.8 mmol/L Normal 0.4-1.9 [facility] Comment on above: Performed By: #### L ACT #### [facility] [address] [place] [address] Dr. Ayden Cam LIPASEon 10-04-2022 Lipase [Catalytic activity/Vol] 170.0 U/L Normal 73.0-393.0 [facility] Comment on above: Performed By: #### L ACT #### [facility] [address] [place] [address] Dr. Ayden Cam PROF 14(COMP METB)on 023 Albumin [Mass/Vol] 3.8 g/dL Normal 3.4-5.0 [facility] Comment on above: Performed By: #### L ACT #### [facility] [address] [place] [address] Dr. Ayden Cam Albumin/Globulin [Mass ratio] 1.1 {ratio} Normal [facility] Comment on above: Performed By: #### L ACT #### [facility] [address] [place] [address] Dr. Ayden Cam ALP [Catalytic activity/Vol] 101 U/L Normal 46-116 [facility] Comment on above: Performed By: #### L ACT #### [facility] [address] [address] [address] Ayden Cam ALT [Catalytic activity/Vol] 94 U/L Critically high 14-59 [facility] Comment on above: Performed By: #### L ACT #### [facility] [address] [address] [address] Ayden Cam Anion gap [Moles/Vol] 11.1 mmol/L Normal [facility] Comment on above: Performed By: #### L ACT #### [facility] [address] [address] [address] Ayden Cam AST [Catalytic activity/Vol] 59 U/L Critically high 15-37 [facility] Comment on above: Performed By: #### L ACT #### [facility] [address] [address] [address] Ayden Cam Bilirubin [Mass/Vol] 0.3 mg/dL Normal 0.2-1.0 [facility] Comment on above: Performed By: #### L ACT #### [facility] [address] [address] [address] Ayden Cam Calcium [Mass/Vol] 9.5 mg/dL Normal 8.5-10.1 [facility] Comment on above: Performed By: #### L ACT #### [facility] [address] [address] [address] Ayden Cam Chloride [Moles/Vol] 99 mmol/L Normal 98-107 [facility] Comment on above: Performed By: #### L ACT #### [facility] [address] [address] [address] Ayden Cam CO2 [Moles/Vol] 29.7 mmol/L Normal 21.0-32.[address] [facility] Comment on above: Performed By: #### L ACT #### [facility] [address] [address] [address] Ayden Cam Creatinine [Mass/Vol] 0.61 mg/dL Normal 0.55-1.02 [facility] Comment on above: Performed By: #### L ACT #### [facility] [address] [address] [address] Ayden Cam EGFR-AF BELARUSIAN >60 Normal >=[address] [facility] Comment on above: Performed By: #### L ACT #### [facility] [address] [address] [address] Ayden Cam EGFR-NON AF BELARUSIAN >60 Normal >=60 [facility] Comment on above: Performed By: #### L ACT #### [facility] [address] [address] [address] Ayden Cam Globulin (S) [Mass/Vol] 3.4 g/dL Normal [facility] Comment on above: Performed By: #### L ACT #### [facility] [address] [address] [address] Ayden Cam Glucose [Mass/Vol] 111 mg/dL Critically high 74-106 [facility] Comment on above: Performed By: #### L ACT #### [facility] [address] [address] [address] Ayden Cam Potassium [Moles/Vol] 3.8 mmol/L Normal 3.5-5.1 [facility] Comment on above: Performed By: #### L ACT #### [facility] [address] [address] [address] Ayden Cam Protein [Mass/Vol] 7.2 g/dL Normal 6.4-8.2 [facility] Comment on above: Performed By: #### L ACT #### [facility] [address] [address] [address] Ayden Cam Sodium [Moles/Vol] 136 mmol/L Normal 136-145 [facility] Comment on above: Performed By: #### L ACT #### [facility] [address] [address] [address] Ayden Cam Urea nitrogen [Mass/Vol] 23.0 mg/dL Critically high 7.0-18.0 [facility] Comment on above: Performed By: #### L ACT #### [facility] [address] [address] [address] Ayden Cam Urea nitrogen/Creatinine [Mass ratio] 37.7 mg/mg Normal [facility] Comment on above: Performed By: #### L ACT #### [facility] [address] [place] [address] Dr. Ayden Cam TROPONIN, HIGH SENSITIVITYon 10-04-2022 HSTROP 8.9 pg/mL Normal 4.0-51.3 [facility] Comment on above: Result Comment: CUT- OFF POINTS HAVE BEEN ESTABLISHED BASED ON THE FOURTH UNIVERSAL DEFINITIONS OF MYOCARDIAL INFARCTION. THE UPPER REFERENCE LIMIT (URL) OF TROPONIN, DEFINED THE 99TH PERCENTILE OF cTnI DISTRIBUTION IN A REFERENCE POPULATION, HAS BEEN CONFIRMED THE DECISION THRESHOLD FOR [place] DIAGNOSIS. Performed By: #### L ACT #### [facility] [address] [place] [address] Dr. Ayden Cam LIPID PROFILEon 09-19-2022 CHOL-HDL RATIO NORM SEE BELOW Normal [facility] Comment on above: Result Comment: 3.3 - 4.4 LOW RISK 4.4 - 7.1 AVERAGE RISK 7.1 - 11.0 MODERATE RISK >11.0 HIGH RISK Performed By: #### L IPA #### [facility] [address] [place] [address] Dr. Ayden Cam Cholesterol [Mass/Vol] 116 mg/dL Normal <=200 [facility] Comment on above: Performed By: #### L IPA #### [facility] [address] [place] [address] Dr. Ayden Cam Cholesterol in HDL [Mass/Vol] 59 mg/dL Normal 40-60 [facility] Comment on above: Performed By: #### L IPA #### [facility] [address] [place] [address] Dr. Ayden Cam Cholesterol in LDL [Mass/Vol] 34.0 mg/dL Normal [facility] Comment on above: Performed By: #### L IPA #### [facility] [address] [place] [address] Dr. Ayden Cam Cholesterol.total/Cho lesterol in HDL [Mass ratio] 2.0 {ratio} Normal [facility] Comment on above: Performed By: #### L IPA #### [facility] [address] [address] [address] Ayden Cam HDL NORMAL > or = 60 mg/dl - LO W CARDIOVASCULAR RISK <40 mg/dl - HIGH CARDIOVASCULAR RISK Normal [facility] Comment on above: Performed By: #### L IPA #### [facility] [address] [place] [address] Dr. Ayden Cam LDL CALC NORMAL SEE BELOW Normal [facility] Comment on above: Result Comment: <100 mg/dl OPTIMAL 100 - 129 mg/dl NEAR OR ABOVE OPTIMAL 130 - 159 mg/dl BORDERLINE HIGH 160 - 189 mg/dl HIGH >190 mg/dl VERY HIGH Performed By: #### L IPA #### [facility] [address] [place] [address] Dr. Ayden Cam Triglyceride [Mass/Vol] 115 mg/dL Normal <=150 [facility] Comment on above: Performed By: #### L IPA #### [facility] [address] [address] [address] Ayden Cam VLDL CALC 23.0 mg/dL Normal [facility] Comment on above: Performed By: #### L IPA #### [facility] [address] [place] [address] Dr. Ayden Cam VITAMIN D 25 OHon 09-19-2022 VIT D 25-OH 89.3 ng/mL Normal [facility] Comment on above: Performed By: #### V ITAD #### [facility] [address] [place] [address] Dr. Ayden Cam VIT D RANGES SEE BELOW Normal [facility] Comment on above: Result Comment: <20 ng/mL Vit D deficient 20 - <30 ng/mL Vit D insufficient 30 - 100 ng/mL Vit D sufficient >100 ng/mL Potential Toxicity Performed By: #### V ITAD #### [facility] [address] [place] [address] Dr. Ayden Cam Office Visit (Cardiology)on 08-15-2022 Follow-up visit Diagnoses/Problems Assessed Atherosclerosis of coronary artery of mechoopda heart without angina pectoris (414.01) (I25.10) History of coronary artery bypass graft (V45.81) (Z95.1) Ischemic cardiomyopathy (414.8) (I25.5) Hyperlipidemia (272.4) (E78.5) Essential hypertension, benign (401.1) (I10) Never a smoker Overweight with body mass index (BMI) of 26 to 26.9 in adult (278.02,V85.22) (E66.3,Z68.26) Paroxysmal SVT (supraventricular tachycardia) (427.0) (I47.1) Orders Atherosclerosis of coronary artery of mechoopda heart without angina pectoris, Essential hypertension, benign, Hyperlipidemia Basic Metabolic Panel; Status:Active - Retrospective Authorization; Requested for:[id number]; Lipid Panel; Status:Active - Retrospective Authorization; Requested for:[id number]; Overweight with body mass index (BMI) of 26 to 26.9 in adult Healthy Weight Tips; Status:Complete - Retrospective Authorization; Done: [id number] Some eating tips that can help you lose weight.; Status:Complete - Retrospective Authorization; Done: [id number] SocHx: Never a smoker Tobacco Use Screening; Status:Complete; Done: [id number] Patient Instructions Please bring all medicines, vitamins, [...] She has a history of prior inferior [place], prior PCI with subsequent three-vessel CABG and [...] FOR CHEST PAIN.CALL 911 IF PAIN PERSISTS. [facility] [id number] UNIT/GM External Powderapply topically to affected area [...] no s (more content not included)... Normal mph[place] Tobacco Screening.on Adult depression screening assessment No [facility] 250 DO Work Phone: Fall risk assessment a) No falls within the last year [facility] [employer] [facility] 250 DO Work Phone: Tobacco use status [facility] b) No [facility] 250 DO Work Phone: MRI [...] by Wilder Arango on 08/01/2022 1102 Normal [facility] [employer] Tobacco Screening.on 021 Tobacco use status HS b) No [facility] 250 DO Work Phone: Vital Signs Date Time Vital Sign Value Performing Clinician Facility 09-05-2024 09:53-0500 Body height 160 cm Celso Garibay DO Work Phone: [facility] 09-05-2024 09:53-0500 Body mass index (BMI) [Ratio] 30.11 kg/m2 Celso Garibay DO Work Phone: [facility] 09-05-2024 09:53-0500 Body weight 77.11 kg Celso Garibay DO Work Phone: [facility] 09-05-2024 09:53-0500 Diastolic blood pressure 80 mm[Hg] Celso Garibay DO Work Phone: [facility] 09-05-2024 09:53-0500 Heart rate 66 /min Celso Garibay DO Work Phone: [facility] 09-05-2024 09:53-0500 Systolic blood pressure 118 mm[Hg] Celso Garibay DO Work Phone: [facility] 08-19-2024 01:03-0500 Diastolic blood pressure 69 mm[Hg] Ashley Grigsby MD Work Phone: [facility] 08-19-2024 01:03-0500 Heart rate 60 /min Ashley Grigsby MD Work Phone: [facility] 08-19-2024 01:03-0500 Respiratory rate 20 /min Ashley Grigsby MD Work Phone: [facility] 08-19-2024 01:03-0500 SaO2% (BldA) [Mass fraction] 96 % Ashley Grigsby MD Work Phone: [facility] 08-19-2024 01:03-0500 Systolic blood pressure 130 mm[Hg] Ashley Grigsby MD Work Phone: [facility] 08-18-2024 20:55-0500 Body height 160.02 cm Ashley Grigsby MD Work Phone: [facility] 08-18-2024 20:55-0500 Body temperature 97.4 [degF] Ashley Grigsby MD Work Phone: [facility] 08-18-2024 20:55-0500 Body weight 78.5 kg Ashley Grigsby MD Work Phone: [facility] 08-13-2024 12:21-0500 Body height 160 cm Celso Garibay DO Work Phone: [facility] 08-13-2024 12:21-0500 Body mass index (BMI) [Ratio] 30.47 kg/m2 Celso Garibay DO Work Phone: [facility] 08-13-2024 12:21-0500 Body weight 78.02 kg Celso Garibay DO Work Phone: [facility] 08-13-2024 12:21-0500 Diastolic blood pressure 94 mm[Hg] Celso Garibay DO Work Phone: [facility] 08-13-2024 12:21-0500 Heart rate 76 /min Celso Garibay DO Work Phone: [facility] 08-13-2024 12:21-0500 Systolic blood pressure 138 mm[Hg] Celso Garibay DO Work Phone: [facility] 08-05-2024 11:08-0500 Blood Pressure Location JENNIFER MARTINO [facility] 08-05-2024 11:08-0500 Body temperature 98.6 [degF] JENNIFER MARTINO [facility] 08-05-2024 11:08-0500 Diastolic blood pressure 80 mm[Hg] JENNIFER MARTINO [facility] 08-05-2024 11:08-0500 Heart rate 68 /min [place] [facility] 08-05-2024 11:08-0500 Respiratory rate 16 /min [place] [facility] 08-05-2024 11:08-0500 Systolic blood pressure 131 mm[Hg] [place] [facility] 04-10-2024 15:08-0400 Blood Pressure Location [place] [facility] 04-10-2024 15:08-0400 Diastolic blood pressure 80 mm[Hg] [place] [facility] 04-10-2024 15:08-0400 Heart rate 75 /min [place] [facility] 04-10-2024 15:08-0400 Respiratory rate 16 /min [place] [facility] 04-10-2024 15:08-0400 Systolic blood pressure 131 mm[Hg] [place] [facility] 02-29-2024 11:15-0400 Body height 160 cm [facility] 02-29-2024 11:15-0400 Body mass index (BMI) [Ratio] 29.58 kg/m2 [facility] 02-29-2024 11:15-0400 Body weight 75.75 kg [facility] [address] [place] [address] 01-17-2024 16:03-0400 Body height 161.3 cm Stephanie Berger MD PhD Work Phone: [facility] [employer] [facility] 01-17-2024 16:03-0400 Body mass index (BMI) [Ratio] 30.16 kg/m2 Stephanie Berger MD PhD Work Phone: [facility] [employer] 01-17-2024 16:03-0400 Body weight 78.47 kg Stephanie Berger MD PhD Work Phone: [facility] [employer] [facility] 08-14-2023 15:29-0500 Body height 161.3 cm Celso Garibay DO Work Phone: [facility] 08-14-2023 15:29-0500 Body mass index (BMI) [Ratio] 28.07 kg/m2 Celso Garibay DO Work Phone: [facility] 08-14-2023 15:29-0500 Body weight 73.03 kg Celso Garibay DO Work Phone: [facility] 08-14-2023 15:29-0500 Diastolic blood pressure 80 mm[Hg] Celso Garibay DO Work Phone: [facility] 08-14-2023 15:29-0500 Heart rate 56 /min Celso Garibay DO Work Phone: [facility] 08-14-2023 15:29-0500 Systolic blood pressure 138 mm[Hg] Celso Garibay DO Work Phone: [facility] 06-18-2023 15:15-0400 Diastolic blood pressure 78 mm[Hg] Gaby Deuce Tello DO Work Phone: [employer] 06-18-2023 15:15-0400 Heart rate 70 /min Gaby Deuce Tello DO Work Phone: [employer] 06-18-2023 15:15-0400 Respiratory rate 18 /min Gaby Deuce Tello DO Work Phone: [employer] 06-18-2023 15:15-0400 SaO2% (BldA) [Mass fraction] 96 % Gaby Deuce Tello DO Work Phone: [facility] [employer] 06-18-2023 15:15-0400 Systolic blood pressure 173 mm[Hg] Gaby Tello DO Work Phone: [facility] [employer] 06-18-2023 14:36-0400 Body temperature 97 [degF] Gaby Tello DO Work Phone: [facility] [employer] 06-18-2023 13:30-0400 Body height 160 cm Gaby Tello DO Work Phone: [facility] [employer] 06-18-2023 13:30-0400 Body mass index (BMI) [Ratio] 27.03 kg/m2 Gaby Tello DO Work Phone: [facility] [employer] 06-18-2023 13:30-0400 Body weight 69.22 kg Gaby Tello DO Work Phone: [facility] [employer] 11-02-2022 15:02-0500 Diastolic blood pressure 84 mm[Hg] MD Ashley Grigsby Work Phone: [facility] 11-02-2022 15:02-0500 Heart rate 78 /min MD Ashley Grigsby Work Phone: [facility] 11-02-2022 15:02-0500 Respiratory rate 18 /min MD Ashley Grigsby Work Phone: [facility] 11-02-2022 15:02-0500 SaO2% (BldA) [Mass fraction] 100 % MD Ashley Grigsby Work Phone: [facility] 11-02-2022 15:02-0500 Systolic blood pressure 161 mm[Hg] MD Ashley Grigsby Work Phone: [facility] 11-02-2022 13:20-0500 Body height 160.02 cm MD Ashley Grigsby Work Phone: [facility] 11-02-2022 13:20-0500 Body temperature 98.2 [degF] MD Ashley Grigsby Work Phone: [facility] 11-02-2022 13:20-0500 Body weight 60.78 kg MD Ashley Grigsby Work Phone: [facility] 11-01-2022 13:26-0500 Diastolic blood pressure 61 mm[Hg] MD Ashley Grigsby Work Phone: [facility] 11-01-2022 13:26-0500 Heart rate 59 /min MD Ashley Grigsby Work Phone: [facility] 11-01-2022 13:26-0500 Respiratory rate 20 /min MD Ashley Grigsby Work Phone: [facility] 11-01-2022 13:26-0500 SaO2% (BldA) [Mass fraction] 99 % MD Ashley Grigsby Work Phone: [facility] 11-01-2022 13:26-0500 Systolic blood pressure 124 mm[Hg] MD Ashley Grigsby Work Phone: [facility] 11-01-2022 10:53-0500 Body height 160.02 cm MD Ashley Grigsby Work Phone: [facility] 11-01-2022 10:53-0500 Body temperature 97.7 [degF] MD Ashley Grigsby Work Phone: [facility] 11-01-2022 10:53-0500 Body weight 61.68 kg MD Ashley Grigsby Work Phone: [facility] 10-24-2022 15:45-0500 Body height 159.38 cm Imad Asaad Other [employer] [facility] [employer] Other 10-24-2022 15:45-0500 Body mass index (BMI) [Ratio] 24.28 kg/m2 Imad Asaad Other [employer] [facility] [employer] Other 10-24-2022 15:45-0500 Body weight 61.69 kg Imad Asaad Other [facility] [employer] Other 10-24-2022 15:45-0500 Diastolic blood pressure 94 mm[Hg] Imad Asaad Other [facility] [employer] Other 10-24-2022 15:45-0500 Systolic blood pressure 133 mm[Hg] Imad Asaad Other [facility] [employer] Other 09-19-2022 00:00-0500 34 1 Ashley M Hoy Work Phone: [facility] 250 DO Work Phone: Comment on above: [facility] 08-15-2022 15:23-0500 Body height 160.02 cm Ashley M Hoy Work Phone: [facility] 250 DO Work Phone: 08-15-2022 15:23-0500 Body mass index (BMI) [Ratio] 26.22 kg/m2 Ashley M Hoy Work Phone: [facility] 250 DO Work Phone: 08-15-2022 15:23-0500 Body surface area Derived from formula 1.7 m2 Ashley M Hoy Work Phone: [facility] 250 DO Work Phone: 08-15-2022 15:23-0500 Body weight 67.13 kg Ashley M Hoy Work Phone: [facility] 250 DO Work Phone: 08-15-2022 15:23-0500 Diastolic blood pressure 82 mm[Hg] Ashley M Hoy Work Phone: [facility] 250 DO Work Phone: 08-15-2022 15:23-0500 Heart rate 80 /min Ashley M Hoy Work Phone: [facility] 250 DO Work Phone: 08-15-2022 15:23-0500 Systolic blood pressure 132 mm[Hg] Ashley Tyree Hoy Work Phone: [facility] 250 DO Work Phone: 06-02-2022 08:12-0400 Blood Pressure Location Santiagohilda CARRILLO [facility] 06-02-2022 08:12-0400 Diastolic blood pressure 86 mm[Hg] Santiagohilda CARRILLO [facility] 06-02-2022 08:12-0400 Heart rate 60 /min Santiagohilda CARRILLO [facility] 06-02-2022 08:12-0400 Respiratory rate 16 /min Santiagohilda CARRILLO [facility] 06-02-2022 08:12-0400 Systolic blood pressure 144 mm[Hg] Santiago CARRILLO [facility] 08-17-2021 09:47-0500 Body height 160.02 cm Ashley M Hoy Work Phone: [facility] 250 DO Work Phone: 08-17-2021 09:47-0500 Body mass index (BMI) [Ratio] 25.01 kg/m2 Ashley M Hoy Work Phone: [facility] 250 DO Work Phone: 08-17-2021 09:47-0500 Body surface area Derived from formula 1.67 m2 Ashley M Hoy Work Phone: [facility] 250 DO Work Phone: 08-17-2021 09:47-0500 Body weight 64.05 kg Ashley Clements Hoestefani Work Phone: [facility] 250 DO Work Phone: 08-17-2021 09:47-0500 Diastolic blood pressure 86 mm[Hg] Ashley Clements Hoy Work Phone: [facility] 250 DO Work Phone: 08-17-2021 09:47-0500 Heart rate 72 /min Ashley Clements Hoy Work Phone: [facility] 250 DO Work Phone: 08-17-2021 09:47-0500 Systolic blood pressure 134 mm[Hg] Ashley Clements Hoy Work Phone: [facility] 250 DO Work Phone: Encounters Encounter Date Encounter Type Care Provider Facility Start: 12-12-2024 End: 12-12-2024 ambulatory [facility] Start: 11-26-2024 End: 11-26-2024 Bamboo flowsheet Raji Byrd PA Work Phone: [facility] Start: 11-26-2024 End: 11-26-2024 Bamboo flowsheet Raji Byrd PA Work Phone: [facility] Start: 11-26-2024 End: 11-26-2024 Office outpatient visit 15 minutes Raji Byrd PA Work Phone: [facility] Comment on above: Acute pain of right wrist (Primary Dx); Tendonitis of wrist, right Start: 11-26-2024 End: 11-26-2024 ambulatory RAJI BYRD Not Available Start: 10-11-2024 End: 10-11-2024 ambulatory RADHA JAIMES [facility] Start: 09-05-2024 End: 09-05-2024 ambulatory [facility] Amb[facility] Start: 09-05-2024 End: 09-05-2024 Transitional care manage srvc 14 day discharge [facility] DO Work Phone: [facility] Comment on above: Atherosclerosis of c oronary artery bypass graft of mechoopda heart without angina pectoris; S/P PTCA (percutaneous transluminal coronary angioplasty); History of coronary artery bypass graft; Ischemic cardiomyopathy; Essential hypertension; Mixed hyperlipidemia; BMI 30.0-30.9,adult; Statin intolerance Start: 08-20-2024 End: 08-22-2024 Evaluation and management of inpatient Donis Arroyo Facility:[facility] Start: 08-18-2024 Evaluation and management of inpatient Ashley Grigsby MD Work Phone: [facility] [place] [facility] Work Phone: Start: 08-18-2024 observation encounter Ashley Grigsby MD Work Phone: [facility] Work Phone: Start: 08-13-2024 End: 08-13-2024 ambulatory [facility] Ambulatory Start: 08-13-2024 End: 08-13-2024 Office outpatient visit 25 minutes [facility] DO Work Phone: [facility] Comment on above: Atherosclerosis of c oronary artery of mechoopda heart without angina pectoris, unspecified vessel or lesion type; History of coronary artery bypass graft; Essential hypertension, benign; Hyperlipidemia, unspecified hyperlipidemia type; Acute pancreatitis, unspecified complication status, unspecified pancreatitis type ([facility]) Start: 08-05-2024 End: 08-05-2024 ambulatory PA-C JENNIFER MARTINO Facility:[facility] Start: 08-05-2024 End: 08-05-2024 Patient encounter procedure JENNIFER MARTINO [facility] Start: 04-10-2024 End: 04-10-2024 ambulatory GENTRY-Soo MARTINO Facility:[facility] Start: 04-10-2024 End: 04-10-2024 Patient encounter procedure JENNIFER MARTINO [facility] Start: 03-11-2024 End: 03-11-2024 ambulatory GENTRY-Soo MARTINO Facility:[facility] Start: 03-11-2024 End: 03-11-2024 Patient encounter procedure JENNIFER MARTINO [facility] Start: 03-07-2024 End: 03-07-2024 Evaluation and management of inpatient ASHLEIGH [facility] Start: 03-06-2024 End: 03-07-2024 Evaluation and management of inpatient [facility] Start: 03-06-2024 End: 03-06-2024 Evaluation and management of inpatient [facility] Start: 02-29-2024 End: 02-29-2024 Evaluation and management of inpatient ASHLEY Clements [facility] Start: 02-29-2024 End: 02-29-[address] [facility] Phone Call Provider 4 [facility] Start: 02-27-2024 ambulatory [facility] Start: 02-27-2024 End: 02-27-2024 ambulatory [facility] Start: 02-14-2024 End: 02-14-2024 Orders Only Stephanie Berger MD PhD [facility]: [facility] Comment on above: Xerostomia (Primary Dx) Start: 01-17-2024 End: 01-17-2024 ambulatory STEPHANIE BERGER [facility] Start: 01-17-2024 End: 01-17-2024 Office outpatient visit 15 minutes Stephanie Berger MD PhD Work Phone: [facility] Comment on above: Dry nose (Primary Dx ); Xerostomia; Allergic rhinitis, unspecified seasonality, unspecified trigger Start: 08-14-2023 End: 08-14-2023 Office outpatient visit 15 minutes Celso Garibay DO Work Phone: [facility] Comment on above: Atherosclerosis of c oronary artery of mechoopda heart without angina pectoris, unspecified vessel or lesion type; History of coronary artery bypass graft; Ischemic cardiomyopathy; Essential hypertension, benign Start: 06-18-2023 End: 06-18-2023 [facility] Start: 06-18-2023 End: 06-18-2023 Subsequent hospital visit by physician Gaby Tello DO Work Phone: [facility] Comment on above: Post-menopausal blee ding; Inclusion cyst Start: 05-24-2023 Rx Renewal Ashley Grigsby Work Phone: [facility] 250 DO Work Phone: Start: 05-17-2023 Patient encounter procedure Ashley Grigsby Work Phone: [facility] 250 DO Work Phone: Start: 05-15-2023 ambulatory ASHLEY GRIGSBY [facility] Start: 12-12-2022 End: 12-12-2022 ambulatory MD Ashley Grigsby Work Phone: [facility] Work Phone: Start: 12-12-2022 End: 12-12-2022 Patient encounter procedure MD Ashley Grigsby Work Phone: [facility] Work Phone: Start: 11-20-2022 End: 11-20-2022 ambulatory Imad Asaad Other [facility] Other Start: 11-20-2022 Telephone encounter Imad Asaad [facility] Start: 11-10-2022 End: 11-10-2022 Patient encounter procedure MD Ashley Grigsby Work Phone: [facility] [place] Work Phone: Start: 11-02-2022 End: 11-02-2022 Admission to same day surgery center MD Ashley Grigsby Work Phone: [facility] Work Phone: Start: 11-02-2022 End: 11-02-2022 ambulatory MD Ashley Grigsby Work Phone: [facility] Work Phone: Start: 11-01-2022 Telephone encounter Imad Asaad [facility] Start: 11-01-2022 End: 11-01-2022 Admission to same day surgery center MD Ashley Grigsby Work Phone: [facility] Work Phone: Start: 11-01-2022 End: 11-01-2022 ambulatory MD Ashley Grigsby Work Phone: [facility] Work Phone: Start: 10-24-2022 End: 10-24-2022 ambulatory Imad Asaad Other [facility] Other Start: 10-24-2022 [facility] visit new patient Imad Asaad [facility] Start: 10-16-2022 End: 10-17-[address] ASHLEY GRIGSBY Facility:[facility] Start: 10-09-2022 End: 10-10-[address] ASHLEY GRIGSBY Facility:[facility] Start: 10-05-2022 Rx Renewal Ashley Grigsby Work Phone: [facility] 250 DO Work Phone: Start: 10-04-2022 End: 10-06-[address] ASHLEY GRIGSBY Facility:[facility] Start: 09-19-2022 End: 09-20-[address] DOCTOR PATEL Facility:[facility] Start: 08-15-2022 Office outpatient vi sit 15 minutes Ashley Grigsby Work Phone: [facility] 250 DO Work Phone: Start: 08-15-2022 Patient encounter procedure Ashley Grigsby Work Phone: [facility] 250 DO Work Phone: Start: 06-02-2022 End: 06-02-2022 Patient encounter procedure Santiago Guzman LORENA [facility] Start: 05-31-2022 Rx Renewal Ashley Grigsby Work Phone: [facility] 250 DO Work Phone: Start: 02-07-2022 End: 02-07-2022 Patient encounter procedure Ashley Grigsby MD Work Phone: [facility] Start: 02-07-2022 End: 02-07-2022 Subsequent hospital visit by physician Ashley Grigsby MD Work Phone: [facility] Comment on above: Women's annual routi ne gynecological examination Start: 11-21-2021 Rx Renewal Ashley Grigsby Work Phone: [facility] 250 DO Work Phone: Start: 08-17-2021 Office outpatient vi sit 15 minutes Ashley Grigsby Work Phone: [facility] 250 DO Work Phone: Start: 08-19-2019 [...] Appendectomy Santiago CARRILLO Bypass of stomach Santiago MONTESD E OCA TERS Cataract surgery Ashley M H [...] 11-02-2032 Screening for malignant neoplasm of colon [facility] Start: 02-07-2027 Screening for malignant neoplasm of cervix [facility] Start: 08-18-2025 End: 08-18-2025 Patient encounter procedure 08/18/2025 11:20 AM EST Office Visit [facility] [address] [address] Celso Garibay DO [address] [facility] [address] [place] [address] [facility] Start: 08-03-2025 End: 08-13-2025 Alanine aminotransferase [Enzymatic activity/volume] in Serum or Plasma by With P-5'-P Alanine Aminotransferase Lab Routine Hyperlipidemia, unspecified hyperlipidemia type Expected: 08/03/2025 (Approximate), Expires: 08/13/2025 [facility] Service Area Work Phone: Comment on above: Expected: 08/03/2025 (Approximate), Expi res: 08/13/2025 Start: 08-03-2025 End: 08-13-2025 Aspartate aminotransferase [Enzymatic activity/volume] in Serum or Plasma by With P-5'-P Aspartate Aminotransferase Lab Routine Hyperlipidemia, unspecified hyperlipidemia type Expected: 08/03/2025 (Approximate), Expires: 08/13/2025 [facility] Work Phone: Comment on above: Expected: 08/03/2025 (Approximate), Expi res: 08/13/2025 Start: 08-03-2025 End: 08-13-2025 Lipid 1996 panel - Serum or Plasma Lipid Panel Lab Routine Hyperlipidemia, unspecified hyperlipidemia type Expected: 08/03/2025 (Approximate), Expires: 08/13/2025 [facility] Work Phone: Comment on above: Expected: 08/03/2025 (Approximate), Expi res: 08/13/2025 Start: 03-17-2025 End: 03-17-2025 Patient encounter procedure 03/17/2025 2:40 PM EDT Off ice Visit [facility] [address] [facility] [address] [place] [id number] Celso Garibay DO [address] [facility] [address] [place] [address] [facility] Start: 02-28-2025 Adult BMI Screening Adult BMI Screening [facility] Start: 02-07-2025 Screening for malignant neoplasm of cervix [facility] Start: 01-16-2025 Adult BMI Screening Adult BMI Screening [facility] Start: 01-16-2025 Tobacco Screening Tobacco Screening [facility] Start: 01-15-2025 End: 01-15-2025 Patient encounter procedure 01/15/2025 4:00 PM EDT Off ice Visit [facility] [place] [place] [address] Stephanie Berger MD PhD [address] [facility] [address] [place] [address] [facility] Start: 11-26-2024 End: 11-26-2024 Patient encounter procedure 11/26/2024 1:00 PM EST Off ice Visit [facility] [address] [place] [phone] Raji Byrd PA [address] [facility] [[email or web address]] [address] [place] [address] Acute pain of right wrist (Primary Dx) [facility] Comment on above: Acute pain of right wrist (Primary Dx) Start: 08-19-2024 Screening for malignant neoplasm of cervix [facility] Start: 08-19-2024 [facility] Start: 08-19-2024 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 [facility] Start: 08-19-2024 [facility] Start: 08-18-2024 Hospital admission [facility] Start: 08-15-2024 Screening for malignant neoplasm of breast Mammogram [facility] Start: 08-13-2024 End: 08-13-2024 Patient encounter procedure 08/13/2024 11:30 AM EST Office Visit [facility] [address] [place] [address] Celso Garibay DO [address] [place] [address] [facility] Start: 2024 RSV High Risk: (Elderly (60+) or Population) (1 - Risk 60-74 years 1-dose series) RSV High Risk: (Elderly (60+) or Population) (1 - Risk 60-74 years 1-dose series) [facility] Start: 06-01-2024 COVID-19 Vaccine ( season) COVID-19 Vaccine ( season) [facility] Start: 06-01-2024 Influenza vaccination Influenza Vaccine [facility] [employer] [facility] Start: 03-06-2024 End: 03-06-2024 Admission to same day surgery center 03/06/2024 11:30 AM EDT - 03/06/2024 12:45 PM EDT Surgery [facility] [address] [place] [address] Danielle Cesar MD [address] [place] [address] ESOPHAGOGASTRODUODENOSCOPY DIAGNOSTIC [02823 (CPT )] [facility] Comment on above: ESOPHAGOGASTRODUODENOSCOPY DIAGNOSTIC [4 3235 (CPT )] Start: 03-06-2024 End: 03-06-2024 Esophagogastroduodenoscopy transoral diagnostic ESOPHAGOGASTRODUODENOSCOPY DIAGNOSTIC ACUTE RECURRING PANCREATITIS, EPIGASTRIC PAIN 03/06/2024 11:30 AM EDT [facility] Start: 03-06-2024 End: 03-06-2024 Esophagoscopy flexible transoral ultrasound exam ENDOSCOPIC ULTRASOUND UPPER ACUTE RECURRING PANCREATITIS, EPIGASTRIC PAIN 03/06/2024 11:30 AM EDT [facility] Start: 03-06-2024 Subsequent hospital visit by physician 03/06/2024 11:30 AM EDT Hospital Encounter [facility] [address] [place] [address] Danielle Cesar MD [address] [place] [address] [facility] Start: 02-14-2024 Depression Screen Depression Screen [facility] Start: 02-12-2024 End: 08-14-2024 Alanine aminotransferase [Enzymatic activity/volume] in Serum or Plasma by With P-5'-P Alanine Aminotransferase Lab Routine History of coronary artery bypass graft Ischemic cardiomyopathy Expected: 02/12/2024 (Approximate), Expires: 08/14/2024 [facility] Work Phone: Comment on above: Expected: 02/12/2024 (Approximate), Expi res: 08/14/2024 Start: 02-12-2024 End: 08-14-2024 Aspartate aminotransferase [Enzymatic activity/volume] in Serum or Plasma by With P-5'-P Aspartate Aminotransferase Lab Routine Atherosclerosis of coronary artery of mechoopda heart without angina pectoris, unspecified vessel or lesion type Ischemic cardiomyopathy Expected: 02/12/2024 (Approximate), Expires: 08/14/2024 [facility] Work Phone: Comment on above: Expected: 02/12/2024 (Approximate), Expi res: 08/14/2024 Start: 02-12-2024 End: 08-14-2024 Lipid 1996 panel - Serum or Plasma Lipid Panel Lab Routine Atherosclerosis of coronary artery of mechoopda heart without angina pectoris, unspecified vessel or lesion type Expected: 02/12/2024 (Approximate), Expires: 08/14/2024 [facility] Service Area Work Phone: Comment on above: Expected: 02/12/2024 (Approximate), Expi res: 08/14/2024 Start: 08-14-2023 FUV, Provider: Celso Garibay, Status: Julio, Time: 3:00 PM FUV, Provider: Celso Garibay, Status: Julio, Time: 3:00 PM -[facility] 250 DO Work Phone: Start: 07-28-2023 Screening for malignant neoplasm of breast Breast cancer screen [facility] Start: 07-24-2023 Screening for malignant neoplasm of breast Mammogram [facility] Start: 07-03-2023 End: 07-03-2023 Patient encounter procedure 07/03/2023 4:45 PM EDT Off ice Visit [facility] [address] [facility] [address] [place] [address] Gaby Phillips, DO [address] [place] [address] post-op BA 05/16 [facility] Comment on above: post-op BA 05/16 Start: 06-18-2023 End: 06-18-2023 Hysteroscopy bx endometrium&/polypc w/wo d&c DILATATION AND CURETTAGE HYSTEROSCOPY Post-menopausal bleeding Inclusion cyst 06/18/2023 2:01 PM EDT [facility] Start: 06-01-2023 COVID-19 Vaccine ( season) COVID-19 Vaccine () [employer] Start: 02-13-2023 End: 02-13-2023 Patient encounter procedure 02/13/2023 Office Visit Obstetrics and Gynecology Gaby Phillips, DO [address] [place] [address] [facility] Start: 12-12-2022 [facility] Start: 11-02-2022 [facility] Start: 11-01-2022 [facility] Start: 08-19-2022 Screening for malignant neoplasm of cervix Pap smear [facility] Start: 08-15-2022 FUV, Provider: Celso Garibay, Status: Pen, Time: 3:00 PM FUV, Provider: Celso Garibay, Status: Pen, Time: 3:00 PM [place] [address] DO Work Phone: Start: 08-03-2022 Lipid panel Lipids [facility] Start: 09-26-2021 COVID-19 Vaccine (4 - Pfizer series) COVID-19 Vaccine (4 - Pfizer series) [facility] Start: 06-01-2019 Influenza vaccination Flu vaccine (#1) [place], [place] Start: 05-09-2018 Pneumococcal Vaccine: Pediatrics (0 to 5 Years) and At-Risk Patients (6 to 64 Years) (2 - PCV) Pneumococcal Vaccine: Pediatrics (0 to 5 Years) and At-Risk Patients (6 to 64 Years) (2 - PCV) [facility] Start: 05-09-2018 Pneumococcal Vaccine: Pediatrics (0 to 5 Years) and At-Risk Patients (6 to 64 Years) (2 of 2 - PCV) Pneumococcal Vaccine: Pediatrics (0 to 5 Years) and At-Risk Patients (6 to 64 Years) (2 of 2 - PCV) [facility] Start: 2014 Breast cancer screen Breast cancer screen [place], [place] Start: 2014 Colon cancer screen colonoscopy Colon cancer screen colonoscopy [place], [place] Start: 2014 Shingles Vaccine (1 of 2) Shingles Vaccine (1 of 2) [facility] Start: 08-26-2009 MMR Vaccines (1 of 1 - Standard series) MMR Vaccines (1 of 1 - Standard series) [facility] Start: 2009 Screening for malignant neoplasm of colon [facility] Start: 1999 Diabetes screen Diabetes screen [facility] Start: 1986 DTaP/Tdap/Td Vaccines (1 - Tdap) DTaP/Tdap/Td Vaccines (1 - Tdap) [facility] Start: 1985 Cervical cancer screen Cervical cancer screen [place], [place] Start: 1985 Screening for malignant neoplasm of cervix [facility] Start: 1983 DTaP,Tdap and Td Vaccines (1 - Tdap) DTaP,Tdap and Td Vaccines (1 - Tdap) [facility] Start: 1983 DTaP/Tdap/Td vaccine (1 - Tdap) DTaP/Tdap/Td vaccine (1 - Tdap) [facility] Start: 1982 Adult BMI Follow Up Plan Adult BMI Follow Up Plan [facility] Start: 1982 Diabetes mellitus screening Diabetes Screening [facility] Start: 1982 Hepatitis C screening [facility] Start: 1979 HIV screen HIV screen [place], [place] Start: 1979 HIV screening HIV screen [facility] Start: 1976 Depression Screen Depression Screen [facility] Start: 1976 Depression Screening Depression Screening [facility] Start: 1975 DTaP/Tdap/Td vaccine (1 - Tdap) DTaP/Tdap/Td vaccine (1 - Tdap) [place], [place] Start: 1974 Lipid panel Lipids [facility] Start: 1974 Lipid screen Lipid screen [place], [place] Start: 1964 Hepatitis B vaccine (1 of 3 - 3-dose series) Hepatitis B vaccine (1 of 3 - 3-dose series) [facility] Start: 1964 Hepatitis B Vaccines (1 of 3 - 3-dose series) Hepatitis B Vaccines (1 of 3 - 3-dose series) [facility] Start: 1964 Hepatitis C screen Hepatitis C screen [facility] Start: 1964 HIV screening HIV Screening [facility] Start: 1964 Lipid panel Lipid Panel [facility] Start: 1964 Screening for malignant neoplasm of colon [facility] Start: 1964 Yearly Adult Physical Yearly Adult Physical [facility] Actin smooth muscle IgG Ab [Units/volume] in Serum [facility] Alpha 1 antitrypsin [Mass/volume] in Serum or Plasma [facility] Alpha 1 antitrypsin phenotyping [Identifier] in Serum or Plasma by Immunofixation [facility] Ceruloplasmin [Mass/ volume] in Serum or Plasma [facility] End: 08-19-2019 Cytopathology procedure, preparation of smear, genital source PAP SMEAR Lab Routine Well female exam with routine gynecological exam 1 Occurrences starting 08/19/2019 until 08/19/2019 [facility] Comment on above: 1 Occurrences starting 08/19/2019 until 08/19/2019 End: 02-07-2022 Cytopathology procedure, preparation of smear, genital source PAP SMEAR Lab Routine Women's annual routine gynecological examination 1 Occurrences starting 02/07/2022 until 02/07/2022 [employer] Phone: Comment on above: 1 Occurrences starting 02/07/2022 until 02/07/2022 Glucose measurement estimated from glycated hemoglobin [facility] Hepatitis A virus Ab [Presence] in Serum by Immunoassay [facility] Hepatitis B core ant ibody measurement [facility] Hepatitis B virus khanna rface Ab [Presence] in Serum [facility] Hepatitis B virus khanna rface Ag [Presence] in Serum or Plasma by Immunoassay [facility] Hepatitis C virus Ig G Ab [Presence] in Serum or Plasma by Immunoassay [facility] Homogenous nuclear A b pattern [Titer] in Serum [facility] IgG [Mass/volume] in Serum or Plasma [facility] End: 06-18-2023 INITIATE PACU OXYGEN THERAPY PROTOCOL Initiate PACU Oxygen Therapy Protocol Respiratory Care Routine Continuous until discontinued starting 06/18/2023 [facility] [employer] Comment on above: Continuous until discontinued starting 0 06/18/2023 Lipoprotein a [Moles /volume] in Serum or Plasma [facility] Mitochondria M2 IgG Ab [Units/volume] in Serum [facility] Nuclear Ab [Titer] in Serum [facility] Oxygen therapy [Mini mum Data Set] Initiate Oxygen Therapy Protocol Respiratory Care Routine As Needed until discontinued starting 06/18/2023 [facility] [employer] [facility] Comment on above: As Needed until discontinued starting Oxygen therapy [[facility] mum Data Set] Initiate Oxygen Therapy Protocol Respiratory Care Routine As Needed until discontinued starting 06/18/2023 [facility] [employer] [facility] Comment on above: As Needed until discontinued starting Patient Education Hemorrhoids (DC) [facility] Work Phone: End: 06-18-2023 , urine POCT , urine POCT Point of Care Testing Routine One Time for 1 Occurrences starting 06/18/2023 until 06/18/2023 [facility] Comment on above: One Time for 1 Occurrences starting 06/01 until 06/18/2023 Surgical Pathology Surgical Path ology Lab Routine Post-menopausal bleeding Inclusion cyst Release Upon Ordering for 1 Occurrences starting 06/18/[address] [facility] Comment on above: Release Upon Ordering for 1 Occurrences starting 06/18/2023 [facility] Immunizations Immunization Date Immunization Notes Care Provider Sudhakar ponce 06-01-2024 influenza, unspecifi ed formulation JENNIFER MARTINO [facility] 06-05-2023 influenza virus vacc ine, unspecified formulation Stephanie Berger MD PhD Work Phone: [employer] 06-16-2022 influenza, injectabl e, quadrivalent, preservative free Ashley Grigsby [facility] DO Work Phone: 06-16-2022 zoster vaccine recombinant Ashley Grigsby Work Phone: [place] [facility] 250 DO Work Phone: 08-01-2021 Pfizer-BioNTech COVI D-19 Vacc 30 MCG/0.3ML Intramuscular Suspension Ashley M Hoy Work Phone: [facility] 250 DO Work Phone: 06-30-2021 influenza virus vacc ine, unspecified formulation Ashley M Hoy Work Phone: [facility] 250 DO Work Phone: 06-03-2021 Influenza, injectabl e, Madin Renetta Canine Kidney, preservative free, quadrivalent Ashley M Hoy Work Phone: [facility] 250 DO Work Phone: 01-29-2021 Pfizer-BioNTech COVI D-19 Vacc 30 MCG/0.3ML Intramuscular Suspension Ashley M Hoy Work Phone: [facility] 250 DO Work Phone: 01-08-2021 Pfizer-BioNTech COVI D-19 Vacc 30 MCG/0.3ML Intramuscular Suspension Ashley Hoy Work Phone: [facility] 2020 influenza, injectabl e, quadrivalent, preservative free Ashley M Hoy Work Phone: [facility] 250 DO Work Phone: 07-23-2018 influenza, injectabl e, quadrivalent, preservative free Ashley M Hoy Work Phone: [facility] 250 DO Work Phone: 07-26-2017 Influenza, injectabl e, Madin Renetta Canine Kidney, preservative free, quadrivalent Ashley M Hoy Work Phone: [facility] 250 DO Work Phone: 05-09-2017 pneumococcal polysaccharide vaccine, 23 valent Ashley M Hoy Work Phone: [facility] 250 DO Work Phone: 07-03-2015 influenza, seasonal, injectable, preservative free Ashley Grigsby Work Phone: [facility] 250 DO Work Phone: 06-15-2014 influenza, seasonal, injectable Ashley Grigsby Work Phone: [facility] 250 DO Work Phone: 07-29-2009 novel influenza-H1N1 -09, preservative-free, injectable Ashley Grigsby Work Phone: [facility] DO Work Phone: Payers Date Payer Category Payer Self-pay [id number] [phone] [id number] 2022 [facility] Member Subscriber Plan / Payer (Effective 2022-Present) Name: Jose Alberto Saleem Relation to Subscriber: Self Name: Jose Alberto Saleem Payer ID: Not on file Type: Not on file Address: [place] [id number] 2022 [facility] [id number] 2022 Unknown 2019 Unknown [employer] [place]AL xxxxxxxxxxxxxxx 2019-Present [address] [place] [address] xxxxxxxxxxxxxxx [id number] 1964 Unknown [id number] 2.16.840.1.670406.3.579.2.5 93 1964 Unknown [id number] 2.16.840.1.514123.3.579.2.5 93 1964 Unknown [id number] 2.16.840.1.271211.3.579.2.5 93 1964 Unknown [id number] 2.16.840.1.576699.3.579.2.5 93 1964 Unknown [id number] 2.16.840.1.820129.3.579.2.5 93 1964 Unknown [id number] 2.16.840.1.487065.3.579.2.1 73 1964 Unknown [id number] 2.16.840.1.240891.3.579.2.1 75 1964 Unknown [id number] 2.16.840.1.107197.3.579.2.1 286 1964 Unknown [id number] 2.16.840.1.782937.3.579.2.1 286 1964 Unknown [id number] 2.16.840.1.356569.3.579.2.1 286 1964 Unknown [id number] 2.16.840.1.769640.3.579.2.1 286 1964 Unknown [id number] 2.16.840.1.792399.3.579.2.1 286 1964 Unknown [id number] 2.16.840.1.098473.3.579.2.1 286 1964 Unknown [id number] 2.16.840.1.844042.3.579.2.1 286 1964 Unknown [id number] 2.16.840.1.138855.3.579.2.7 27 1964 Unknown [id number] 2.16.840.1.273298.3.579.2.7 27 1964 Unknown [id number] 2.16.840.1.503675.3.579.2.7 27 1964 Unknown [id number] 2.16.840.1.289678.3.579.2.1 286 1964 Unknown [id number] 2.16.840.1.391785.3.579.2.1 244 1964 Unknown [id number] 2.16.840.1.720134.3.579.2.1 244 1964 Unknown [id number] 2.16.840.1.511114.3.579.2.1 259 1964 Unknown [id number] 2.16.840.1.414939.3.579.2.1 259 1959 Unknown [id number] 1959 Unknown [id number] Unknown [id number] 2.16.840.1.113562.3.579.2.5 31 Social History Date Type Detail Facility Start: 08-19-2019 End: 09-13-2023 Tobacco [facility] status NHIS [facility] Start: 08-19-2019 End: 11-26-2024 [facility] intake [facility] Start: 1965 [facility]igned At [facility] on file [facility] Start: 06-18-2023 End: 11-26-2024 No alcohol use No alcohol use -[place] [address] DO Work Phone: Start: 08-19-2019 End: 09-13-2023 Tobacco use and exposure Smokeless tobacco non-user 9+ Work Phone: Start: 06-18-2023 End: 11-26-2024 Sex Assigned At Female [facility] Start: 1965 Sex Assigned At Female F [facility] Patient Health Questionnaire 9 item (PHQ-9) total score [Reported] 0 [facility] ([employer]) Start: 08-14-2023 End: 09-05-2024 Alcohol intake Lifetime non-drinker (finding) [facility] Work Phone: Start: 08-04-2023 End: 09-05-2024 Exposure to SARS-CoV-2 (event) Not sure [facility] Start: 08-19-2024 Sex Female (finding) [facility] Start: 01-17-2024 End: 02-29-2024 Alcoholic beverage intake Current non-drinker of alcohol (finding) [facility] Start: 09-12-2023 Gender identity Identifies as female gender (finding) [facility] NEGATED: Highlighted row Denies Caffeine use Denies Caffeine use [facility] 250 DO Work Phone: Medical Equipment [...] Tissue Alloderm Nonmesh 2x4cm - Sna - [id number] Start: 09-06-2017 Lens Iol Ultrase rt 17.0d - [id number] - [id number] Start: 11-14-2018 Sinus Implant Propel Mini - Sna - [id number] Start: 01-03-2018 Sinus Implant Augusta Alvarez - [id number]_[facility] Start: 01-03-2018 Elena Restor [id number]_[facility] Start: 11-05-2018 Goals Date Patient Goal Desired Activity /State Functional Status Date Assessment Result Facility 08-05-2024 Functional Status N/A [facility] 04-10-2024 Functional Status N/A [facility] 06-02-2022 Functional Status N/A [facility] Clinical Notes 06-02-2022 to 12-12-2024 GENTRY Kearney [...] the patient. I agree with the documentation. [facility] Gastroenterology New Patient Visit - [...] on for which she was admitted at [facility] and was management symptomatically. Patient reported since [...] healthy appearing mucosa. This was traversed. The domop-hx-pzdtuig limb was characterized by healthy appearing mucosa. [...] Angina pectoris Atherosclerosis of coronary artery of mechoopda heart without angina pectoris Cellulitis of right [...] Mother Gretta Hyperlipidemia Father Munoz Hyperlipidemia Brother Dillwyn Heart attack Brother Ray SOCIAL HISTORY: Social History Tobacco Use Smoking status: Never Smokeless tobacco: Never Vaping Use Vaping status: Never Used Substance Use Topics Alcohol use: Never Drug use: Never ALLERGIES: Baclofen; Latex, natural rubber; Penicillins; Sulfa (sulfonamide antibiotics); Rosuvastatin; Sulfamethoxazole-trimethoprim; Fenofibrate; Fenofibrate micronized; Fluvastatin; Levofloxacin; Phenazopyridine; Simvastatin; Trimethoprim; and Tobramycin Current Med (more content not included)... [facility] 11-26-2024 History of Present illness Narrative Images [...] AND FELT A POP 10/08/24- WENT TO [facility]; SENT TO ER XRAYS XRAY RT WRIST TODAY EPIC 11/26/24 XRAY [facility] RT FOREARM 10/11/24 SPLINT DOING WELL TODAY- [...] xray 10/11/24 (R) Forearm: no acute fracture [facility] Results - Imaging: - X-ray of the [...] requiring urgent evaluation. documented in this encounter [facility] 09-05-2024 History of Present illness Narrative Subjective Jose Alberto Saleem is a 59 y.o. female Chief Complaint Follow-up 59-year-old female returns following acute coronary syndrome, with subsequent two-vessel intervention of the vein graft to the diagonal branch with long 3.5 x 38 mm K[place] stent and mechoopda distal circumflex for in-stent restenosis with 3 x 18 mm [place] stent. LV function is preserved. WHEELER-LAD remains patent, mechoopda right coronary vein graft right coronary is chronically occluded (known from the past) and collateralized via left coronary system, and vein graft to the OM 2 is also occluded chronically however mechoopda circumflex is intact. Patient is otherwise stable [...] Atherosclerosis of coronary artery bypass graft of mechoopda heart without angina pectoris 2. S/P PTCA [...] discussion and plan. documented in this encounter [facility] Work Phone: 09-05-2024 Instructions Jasmyne Salinas [...] be sent through Care Everywhere.Heart Healthy Diet (Macedonian)documented in this encounter [facility] Work Phone: 08-19-2024 Evaluation note Diagnosis Onset Date Resolution Atypical chest pain acute Novem rocky 2023 11:18pm [facility] Work Phone: 1(852) 107-565511-13-2024 History of Present illness Narrative* Celso Pam Phoenix, - 08/13/2024 11:30 AM EST Subjective Jose Alberto Saleem is a 59 y.o. female Chief Complaint Annual Exam 59-year-old female returns for annual visit, she just got back from [facility] from vacation last evening and [...] has a history of remote CABG, remote [place], remote PCI's before and after her CABG [...] Assessment/Plan 1. Atherosclerosis of coronary artery of mechoopda heart without angina pectoris, unspecified vessel or lesion type Follow Up In Cardiology 2. History of coronary artery bypass graft Follow Up In Cardiology 3. Essential hypertension, benign 4. Hyperlipidemia, unspecified hyperlipidemia type 5. Acute pancreatitis, unspecified complication status, unspecified pancreatitis type ([facility]) Scribe Attestation By signing my name [...] exam, discussion and plan. [facility] Work Phone: 1(331) 804-187111-13-2024 Instructions* Patient Instructions* Bettie Ugalde LPN - [...] Provided instructions on exercise. [facility] Work Phone: 1(371) 318-665711-05-2024 Hospital Discharge instructions Patient Education 08/05/2024 12:20:10 Kidney Stones, Jzbd-vt-Yzse Kidney Stones Kidney stones are rock-like masses [...] Follow these instructions at home: Medicines Take ougt-fip-igjtyft and prescription medicines only as told by [...] provider. Document Revised: 05/11/2023 Document Reviewed: 05/11/[address] Patient Education [address] Follow Up Care 06/06/2024 11:10:21 With:JENNIFER MARTINO PA-C, TRUDYL Address: When:1 year [facility] 11-05-2024 NotePatient Education Urology Kidney Stones [...] these instructions at home: Medicines ??? Take yfbl-sgr-kzvgfjo and prescription medicines only as told by [...] provider. Document Revised: 05/11/2023 Document Reviewed: 05/11/2023 [employer] Patient Education ? 2023 [employer] 04-10-2024 Hospital Discharge instructions Patient Education 04/10/2024 16:08:23 Kidney Stones, Wwyo-gz-Ckwz Kidney Stones Kidney stones are rock-like masses [...] Follow these instructions at home: Medicines Take xzyd-gww-hipqocj and prescription medicines only as told by [...] provider. Document Revised: 05/22/2022 Document Reviewed: 05/22/[address] Patient Education 2022 [employer]. Follow Up Care 03/10/2024 08:31:33 With:SALENA REDDY, JENNIFER López, URL Address: [address] [address] When:3 months [facility] 07-11-2024 NotePatient Education Urology Kidney Stones Kidney [...] these instructions at home: Medicines ? Take sjzh-rly-ygiqigx and prescription medicines only as told by [...] provider. Document Revised: 05/22/2022 Document Reviewed: 05/22/[address] Patient Education ? 2022 [employer] 02-29-2024 Instructions* Pre-Procedure Instructions - Aracely Boyd RN - 02/29/2024 10:00 AM EDT Your surgery/procedure is scheduled at [facility] on 03/06/2024 at 1130 Arrival Time 0930 [facility] Address: [address] [place] [address]. [place] [address] Park in Parking lot located on [facility]. Report to the Entrance B. Check in at the information desk the surgery. The waiting room located on the second floor. If you have any questions prior to surgery, please call Pre-Admission Clinic at [phone] between 7:30 am and 4:30 pm Sunday through Sunday. If you have questions the morning of surgery, please call the Pre-op Department at [phone]. Notify your SURGEON if you develop any [...] would like to schedule therapy at a [facility] Rehab facility, please call [address] [place] [address] ([phone]). Do not use lotions, creams, powders, perfume, [...] RIGHTS AND RESPONSIBILITIES As a patient at [facility], you have the right to: Receive medical care and be informed of who is taking care of you Be treated with dignity and respect Have a family member/account executive sales representative of choice and your physician notified of your admission Receive information and actively participate in decisions about your care and treatment Refuse care, treatment and services Decide who may provide your support and speak for you Access hoahaoism and spiritual services Participate in ethical issues [...] of hospital charges and payment methods Patient/patient account executive sales representative responsibilities are to: Provide information about [...] RIGHTS AND RESPONSIBILITIES As a patient at [facility], you have the right to: Receive medical care and be informed of who is taking care of you Be treated with dignity and respect Have a family member/account executive sales representative of choice and your physician notified of your admission Receive information and actively participate in decisions about your care and treatment Refuse care, treatment and services Decide who may provide your support and speak for you Access hoahaoism and spiritual services Participate in ethical issues [...] of hospital charges and payment methods Patient/patient account executive sales representative responsibilities are to: Provide information about [...] Control department if you have any questions. [facility]05-31-2024 Miscellaneous Notes* Pre-Procedure Instructions - Aracely Boyd RN - 02/29/2024 10:00 AM EDT Your surgery/procedure is scheduled at [facility] on 03/06/2024 at 1130 Arrival Time 0930 [facility] Address: [address] [place] [address] Park in Parking lot located on [facility]. Report to the Entrance B. Check in at the information desk the surgery. The waiting room located on the second floor. If you have any questions prior to surgery, please call Pre-Admission Clinic at [phone] between 7:30 am and 4:30 pm Sunday through Sunday. If you have questions the morning of surgery, please call the Pre-op Department at [phone]. Notify your SURGEON if you develop any [...] would like to schedule therapy at a [facility] Rehab facility, please call [phone] ([phone]). Do not use lotions, creams, powders, perfume, [...] RIGHTS AND RESPONSIBILITIES As a patient at [facility], you have the right to: Receive medical care and be informed of who is taking care of you Be treated with dignity and respect Have a family member/account executive sales representative of choice and your physician notified of your admission Receive information and actively participate in decisions about your care and treatment Refuse care, treatment and services Decide who may provide your support and speak for you Access hoahaoism and spiritual services Participate in ethical issues [...] of hospital charges and payment methods Patient/patient account executive sales representative responsibilities are to: Provide information about [...] RIGHTS AND RESPONSIBILITIES As a patient at [facility], you have the right to: Receive medical care and be informed of who is taking care of you Be treated with dignity and respect Have a family member/account executive sales representative of choice and your physician notified of your admission Receive information and actively participate in decisions about your care and treatment Refuse care, treatment and services Decide who may provide your support and speak for you Access hoahaoism and spiritual services Participate in ethical issues [...] of hospital charges and payment methods Patient/patient account executive sales representative responsibilities are to: Provide information about [...] you have any questions. documented in this encounterUK HealthcareSDC Materials,Inc. [id number] Note Attestation signed by Danielle Cesar MD at 02/27/2024 2:30 PM I personally saw and examined the patient on the same date of service as resident/fellow . I discussed the findings and therapeutic plan with the resident/fellow . I agree with the documentation, except for any edits/updates below. [facility] Gastroenterology New Patient Visit - [...] pectoris (CMS/HCC) Atherosclerosis of coronary artery of mechoopda heart without angina pectoris Cellulitis of right [...] Mother Gretta Hyperlipidemia Father Munoz Hyperlipidemia Brother Dillwyn Heart attack Brother Ray SOCIAL HISTORY: Social [...] negative HEENT: negative RESPI (more content not included)...[facility] 01-17-2024 History of Present illness Narrative* Stephanie Berger MD PhD - 01/17/2024 4:00 PM EDT [facility] [address] [facility] [id number] SUBJECTIVE: Patient ID (1965): Jose Alberto Saleem [...] Myocardial infarction ([facility]) 2013 5 stents Visual impairment Past Surgical History: Procedure Laterality Date APPENDECTOMY BIOPSY SALIVARY GLAND FS N/A 09/06/2017 Performed by Stephanie Berger MD at [facility] CARPAL TUNNEL RELEASE right CHOLECYSTECTOMY CORONARY ARTERY BYPASS GRAFT x4 ENDOSCOPIC FUNCTIONAL SINUS SURGERY Bilateral 01/03/2018 Performed by Stephanie Berger MD at [facility] ENDOSCOPIC SURGERY SINUS Bilateral 01/03/2018 Performed by Stephanie Berger MD at [facility] EXCISION MASS UPPER EXTREMITY Right 11/19/2019 Performed by Stephanie Morse DO at [facility] HERNIA REPAIR LAPAROSCOPIC GASTRIC BYPASS LITHOTRIPSY OVARIAN CYST REMOVAL PHACO KELMAN I IMPLANT INTRAOCULAR LENS Left 11/14/2018 Performed by Nisha Stoll MD at [facility] PHACO KELMAN I IMPLANT INTRAOCULAR LENS Right 11/05/2018 Performed by Nisha Stoll MD at [facility] RELEASE CARPAL TUNNEL Right 01/11/2022 Performed by Stephanie Morse DO at [facility] RELEASE CARPAL TUNNEL [place] CPT 64756 Left 07/19/2022 Performed by Stephanie Morse DO at [facility] RESECTION SUBMUCOSAL Bilateral 09/06/2017 Performed by Stephanie Berger MD at [facility] SEPTOPLASTY SEPTOPLASTY N/A 09/06/2017 Performed by Stephanie Berger MD at [facility] STENT INSERTION LACRIMAL DUCT EYE Right 09/06/2017 Performed by Stephanie Berger MD at [facility] URETERAL STENT PLACEMENT Family History Problem Relation [...] tablets (6.25 mg total) by mouth daily. badkhbhw-gmhm-BK-calcium &mins (THERAGRAN-M) 9 mg iron-400 mcg tablet [...] day. (Patient not taking:Reported on 01/17/2024) sod bgais-rdibwb-qphqqf bottle (NEILMED SINUS RINSE COMPLETE) packet with [...] this chart were generated using voice recognition [employer] dictation software. Although every effort was made to ensure the accuracy of this automated maritime officer, some errors in maritime officer may have occurred. documented in this encounterUK HealthcareEvolv Technologies [facility]umont [id number] History of Present illness Narrative* Celso Garibay, [...] has a history of remote CABG, remote [place], remote PCI's before and after her CABG [...] Assessment/Plan 1. Atherosclerosis of coronary artery of mechoopda heart without angina pectoris, unspecified vessel or lesion type 2. History of coronary artery bypass graft 3. Ischemic cardiomyopathy 4. Essential hypertension, benign [facility] Work Phone: 1(492) 840-500711-14-2023 Instructions* Patient Instructions* Ej Braswell MA - [...] time of your visit. [facility] Work Phone: 1(193) 185-664209-18-2023 Hospital Discharge instructions* Discharge Instructions* Lissa Ocasio [...] call if excessive. Call the office at [phone] ([place]) [phone] ([place]) for an appointment in 2 weeks. [address] [facility] History of Present illness Narrative* [...] pre-opvisit with Dr. Engel. documented in this encounterB[facility] Evaluation note* Encounter Date Diagnosis Assessment Notes Treatment Notes Treatment Clinical Notes Nov, Elevated liver function tests (ICD-10 - R94.5) [employer] Other 02-02-2023 Procedure [facility]02-01-2023 Procedure [facility]01-24-2023 Evaluation note* Encounter Date Diagnosis Assessment Notes Treatment Notes Treatment Clinical Notes Oct, Abdominal pain (ICD-10 - R10.9) Oct, Common bile duct dilatation (ICD-10 - K83.8) Oct, Elevated liver enzymes (ICD-10 - R74.8) Oct, Constipation (ICD-10 - K59.00) Colonoscopy Start Miralax daily after colonoscopy. Titration dosing discussed with patient. Oct, Colon cancer screening (ICD-10 - Z12.11) [employer] Other 01-04-2023 NotePROGRESS NOTE NOTE DATE: 10/04/2022 CHIEF COMPLAINT: Abdominal pain. HISTORY OF PRESENT ILLNESS: The patient is a 57-year-old female with a history of dyslipidemia and gastric bypass surgery, who has been having increasing abdominal pain and flank pain. She was seen yesterday at the [facility] for epigastric and upper abdominal [...] Prophylaxis: Lovenox. DISPOSITION: Home when medically stable.[facility] [id number] Hospital Discharge instructions Patient Education 06/02/2022 08:51:52 Kidney Stones, Fvxb-xj-Wdeg Kidney Stones Kidney stones are rock-like masses [...] Follow these instructions at home: Medicines Take vwva-gjv-hibgtlu and prescription medicines only as told by [...] 03/05/2009 Document Revised: 02/03/2020 Document Reviewed: 02/03/[address] Patient Education 2020 [employer]. Follow Up Care 05/27/2021 09:10:08 With:LORENA STRAUSS, Santiago Guzman, URL Address: [address] [place] [address]- When: Unknown [facility] evaluation + Plan note Future Appointments Appointment Date:06/01/2023 08:00:00 AM Scheduled Provider:Santiago CARRILLO MD Location:[facility] Appointment Type:URO Office Visit [facility] evaluation + Plan note Future Appointments Appointment Date:04/10/2024 03:00:00 PM Scheduled Provider:JENNIFER MARTINO PA-C Location:[facility] Appointment Type:URO Office Visit [facility] evaluation + Plan note Future Scheduled Tests Radiology* XR Abdomen 1 View 08/05/25 [facility] evaluation note* Diagnosis Women's annual routine gynecological examination documented in this encounter [employer] Work Phone: evaluation noteNo assessment information [facility] Work Phone: Evaluation noteNo InformationNophelps health [facility] Other Evaluation note* Diagnosis Post-menopausal bleeding Postmenopausal bleeding Inclusion cyst Sebaceous cyst documented in this [facility] Diagnosis Atherosclerosis of coronary artery of mechoopda heart without angina pectoris, unspecified vessel or lesion type 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 Ischemic cardiomyopathy Other specified forms of chronic ischemic heart disease Essential hypertension, benign documented in this encounter [facility] Work Phone: Evaluation note* Diagnosis Atherosclerosis of coronary artery of mechoopda heart without angina pectoris, unspecified vessel or lesion type 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 Essential hypertension, benign Hyperlipidemia, unspecified hyperlipidemia type Acute pancreatitis, unspecified complication status, unspecified pancreatitis type ([facility]) documented in this encounter [facility] Work Phone: Evaluation note* Diagnosis Atherosclerosis of coronary artery bypass graft of mechoopda heart without angina pectoris S/P PTCA (percutaneous transluminal coronary angioplasty) Postsurgical percutaneous transluminal coronary angioplasty status 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 Ischemic cardiomyopathy Other specified forms of chronic ischemic heart disease Essential hypertension Unspecified essential hypertension Mixed hyperlipidemia BMI 30.0-30.9,adult Statin intolerance documented in this encounter [facility] Work Phone: Evaluation note* Diagnosis Dry [...] HealthcareHistory and physical note Author Evert Bruno [facility] November 01, 2022 12:40pm Note Date/Time November 01, 2022 1 2:40pm [facility] [address] [place] [address] Gastroenterology H&P Signed Patient: Jose Alberto Saleem MR#: [id number] : 1965 Acct:[id number] Age/Sex: 57 / F Adm Date: 3 Loc: Room: Type: [facility] Attending Dr: Evert Bruno MD [...] signed by Evert Bruno MD> 11/01/22 1241 [facility] Work Phone: History and physical note Author Evert Bruno [facility] November 02, 2022 2:14pm Note Date/Time November 02, 2022 2 :14pm [facility] [address] [place] [address] Gastroenterology H&P Signed Patient: Jose Alberto Saleem MR#: [id number] : 1965 Acct:[id number] Age/Sex: 57 / F Adm Date: 3 Loc: Room: Type: [facility] Attending Dr: Evert Bruno MD [...] signed by Evert Bruno MD> 11/02/22 1414 [facility] Work Phone: History general Narrative - Reported* Type Description Date Medical History impaired fasting glucose Medical History heart disease, [place] stents, CABG Medical History Hypertension Medical History hyperlipidemia 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 -Follow up with PCP. -Office number [phone]. [facility] Work Phone: Hospital Discharge instructions [...] problems. -Follow up with PCP. -Office number [phone]. [facility] Work Phone: Hospital Discharge instructions No data available for this section [facility] InstructionsNot on filedocumented in this encounter [facility]Not on filedocumented in this encounter [facility] No data available for this section [facility] reason for referral (narrative)* Consultation (Routine) - Authorized Specialty Diagnoses / Procedures Referred By Manfred t Referred To Contact Cardiology Diagnoses Atherosclerosis of coronary artery of mechoopda heart without angina pectoris, unspecified vessel or lesion type History of coronary artery bypass graft Procedures Follow Up In Cardiology Celso Garibay DO [address] [place] [address] 2, [address] [address] Celso Garibay DO [address] [place] [address] [address], [address] [address] Referral ID Status Reason Start Date Expiration Date V isits Requested Visits Authorized [id number] Authorized 08/14/2023 08/13/2024 1 1 [facility] Work Phone: Summary Purpose Family [...] FoundDocuments on File Type Date Recorded Patient Pan Shover Expl anation Advance Directives and Living Will Power of Manager Pipeline Documents on File Type Date Recorded Patient Pan Shover Expl anation ACP-Advance Directive ACP-Power of Manager Pipeline Advance Directive Response Recorded Date/ Time Advance [...] She has known history of prior inferior IL, prior stenting, priorthree-vessel CABG, subsequent PCI of [...] adverse reactions to other medications, hypotension. * [place] [employer] is class I * Recommendations, [...] She has a history of prior inferior IL, prior PCI with subsequent three-vessel CABG and [...] She has a history of prior inferior IL, prior PCI with subsequent three-vessel CABG and [...] section and content) DATE CREATED AUTHOR 03/26/2018 [facility] DATE CREATED AUTHOR AUTHOR'S ORGANIZ ATION 03/26/2018 [facility] ical Center DATE CREATED AUTHOR AUTHOR'S ORGANIZ ATION 08/02/2022 [facility] dical Specialist DATE CREATED AUTHOR AUTHOR'S ORGANIZ ATION 08/17/2022 [facility] DATE CREATED AUTHOR AUTHOR'S ORGANIZ ATION 10/17/2022 [facility] DATE CREATED AUTHOR AUTHOR'S ORGANIZ ATION 06/23/2023 [facility] DATE CREATED AUTHOR AUTHOR'S ORGANIZ ATION 07/16/2023 [facility] DATE CREATED AUTHOR AUTHOR'S ORGANIZ ATION 01/19/2024 [facility] DATE CREATED AUTHOR AUTHOR'S ORGANIZ ATION 03/07/2024 [facility] DATE CREATED AUTHOR AUTHOR'S ORGANIZ ATION 08/06/2024 [facility] DATE CREATED AUTHOR AUTHOR'S ORGANIZ ATION 09/15/2024 [facility] DATE CREATED AUTHOR AUTHOR'S ORGANIZ ATION 10/15/2024 [facility] DATE CREATED AUTHOR AUTHOR'S ORGANIZ ATION 10/16/2024 [facility] DATE CREATED AUTHOR AUTHOR'S ORGANIZ ATION 12/01/2024 [facility] dical Specialists EPIC DATE CREATED AUTHOR AUTHOR'S ORGANIZ ATION 12/15/2024 [facility] Care Teams (unrecognized sec tion and [...] Active Evert Bruno MD Attending Provider Active Bag Mender Relationship Specialty Start Date End Date Ashley Grigsby MD [address] [place] [address] PCP - General Family Medicine 08/19/19 Bag Mender Relationship Specialty Start Date End Date Ashley Grigsby MD [address] [place] [address] PCP - General Family Medicine 08/19/19 Bag Mender Relationship Specialty Start Date End Date Ashley Grigsby MD [address] [facility] [place] [address] PCP - General 08/17/21 Bag Mender Relationship Specialty Start Date End Date Ashley Grigsby MD [address] [facility] [place] [address] PCP - General 08/17/21 Bag Mender Relationship Specialty Start Date End Date Ashley Grigsby MD [address] [place] [address] PCP - General 08/17/21 Anita Hammonds, programmer businessFarm Management Teacher 08/22/24 Bag Mender Relationship Specialty Start Date End Date Ashley Grigsby MD [address] [facility] [place] [address] PCP - General 02/22/17 Bag Mender Relationship Specialty Start Date End Date Ashley Grigsby MD [address] [place] [address] PCP - General 02/22/17 Bag Mender Relationship Specialty Start Date End Date Ashley Grigsby MD [address] [place] [address] PCP - General 02/22/17 Bag Mender Relationship Specialty Start Date End Date Ashley Grigsby MD [address] [place] [address] [phone] PCP - General Family Medicine 09/13/23 Bag Mender Relationship Specialty Start Date End Date Ashley Grigsby MD [address] [place] [address] PCP - General Family Medicine 09/13/23 REASON FOR VISIT (unrecogniz ed section and content) Specialty Diagnoses / Procedures Referred By Manfred t Referred To Contact Diagnoses Post-menopausal bleeding Inclusion cyst Post-menopausal bleeding [N95.0] Inclusion cyst [L72.0] Procedures NM HYSTEROSCOPY BX ENDOMETRIUM&/POLYPC W/WO D&C NM DESTRUCTION BENIGN LESIONS UP TO 14 DILATATION AND CURETTAGE HYSTEROSCOPY-REMOVAL OF INCLUSION CYST Gaby Phillips, DO [address] [place] [address] [facility] [id number] [place] [address] Referral ID Status Reason Start Date Expiration Date Visits Re quested Visits Authorized [id number] 1 1 Reason Comments Annual Exam 1yr Specialty Diagnoses / Procedures Referred By Manfred flynn Referred To Contact Cardiology Diagnoses Atherosclerosis of coronary artery of mechoopda heart without angina pectoris, unspecified vessel or lesion type History of coronary artery bypass graft Procedures Follow Up In Cardiology Celso Garibay, [address] [address] Phone: tel: fax: Celso Garibay, [address] [address] Phone: tel: fax: Referral ID Status Reason Start Date Expiration Date V isits Requested Visits Authorized [id number] Authorized 08/14/2023 08/13/2024 1 1 Reason Comments [place] [facility] [place] 08[place]22 Reason Comments Med Refill [...] BE BASED ON THE PRIMARY CLINICAL RECORDS. [employer] provides no warranty or guarantee of the accuracy or completeness of information in this document.
[2025-01-02] MEDS: METRONIDAZOLE/SODIUM CHLORIDE 500 MG/100 ML PREMIX 100 MG IV (18:32)
[2025-01-02] MEDS: HYOSCYAMINE SULFATE 0.125 MG TAB.SUBL SL ×2 (18:33→21:01)
[2025-01-02] MEDS: LACTATED RINGER'S SOLUTION 1,000 ML 100 ML IV (18:33)
[2025-01-02] MEDS: ONDANSETRON PF 4 MG/2 ML VIAL IV (18:33)
[2025-01-02] MEDS: CIPROFLOXACIN IN 5 % DEXTROSE 400 MG/200 ML PREMIX 200 MG IV (19:51)
[2025-01-02 20:35] VITALS: BP 150/81; PULSE 58; TEMP 36.6; O2SAT 96; O2SAT 97
[2025-01-02] MEDS: FLUTICASONE PROPIONATE 50 MCG NASAL SPRAY 1 SPRAY NS (21:00)
[2025-01-03] MEDS: METRONIDAZOLE/SODIUM CHLORIDE 500 MG/100 ML PREMIX 100 MG IV ×3 (00:44→11:41)
[2025-01-03 00:47] VITALS: BP 142/84; PULSE 62; TEMP 36.6; O2SAT 96
[2025-01-03 03:40] VITALS: BP 159/84; PULSE 60; TEMP 36.5; O2SAT 96
[2025-01-03 05:03] VITALS: O2SAT 92
[2025-01-03] MEDS: HYOSCYAMINE SULFATE 0.125 MG TAB.SUBL SL ×2 (05:09→11:41)
[2025-01-03] MEDS: LACTATED RINGER'S SOLUTION 1,000 ML 100 ML IV (05:09)
[2025-01-03 06:27] LABS: Basophils Percent Auto 0.2 % (0.2-2.0); Eosinophils Absolute Auto 0.2 10^3/uL (0.0-0.7); Eosinophils Percent Auto 4.6 % (0.9-7.0); Hemoglobin 13.7 g/dL (12.0-16.0); Immature Granulocytes Abs Auto 0.01 10^3/uL (0.00-0.03); Immature Granulocytes Pct Auto 0.2 % (0.0-0.5); Lymphocytes Absolute Auto 1.4 10^3/uL (1.2-3.8); Lymphocytes Percent Auto 28.2 % (20.5-60.0); Mean Corpuscular HGB Conc 32.6 g/dL (29.9-35.2); Mean Corpuscular Hemoglobin 30.1 pg (26.7-34.0); Mean Corpuscular Volume 92.3 fL (81.0-99.0); Mean Platelet Volume 9.2 fL (9.5-13.5); Monocytes Absolute Auto 0.6 10^3/uL (0.3-0.8); Monocytes Percent Auto 11.1 % (1.7-12.0); Neutrophils Absolute Auto 2.8 10^3/uL (1.4-6.5); Neutrophils Percent Auto 55.7 % (43.0-75.0); Platelet Count 173 10^3/uL (150-450); Red Blood Count 4.55 10^6/uL (4.20-5.40); Red Cell Distribution Width 12.5 % (11.0-15.0)
[2025-01-03 06:35] LABS: Ammonia 24 umol/L (11-32)
[2025-01-03 06:37] LABS: INR 1.03; Partial Thromboplastin Time 31.4 sec (22.3-36.2); Prothrombin Time 10.9 sec (9.0-11.6)
[2025-01-03 06:41] LABS: Chol HDL Ratio 3.5; Cholesterol 189 mg/dL (<=200); HDL Cholesterol 54 mg/dL (40-60); LDL Cholesterol Calculated 110.2 mg/dL; Triglycerides 124 mg/dL (<=150); VLDL CHOLESTEROL 24.8 mg/dL
[2025-01-03 06:50] LABS: Alanine Aminotransferase 35 U/L (14-59); Albumin Globulin Ratio 1.1; Albumin Level 3.1 g/dL (3.4-5.0); Alkaline Phosphatase 90 U/L (46-116); Amylase 136 U/L (25-115); Anion Gap 10.8; Aspartate Amino Transferase 23 U/L (15-37); BUN Creatinine Ratio 20.8; Bilirubin Total 0.4 mg/dL (0.2-1.0); Calcium 8.9 mg/dL (8.5-10.1); Carbon Dioxide 30.4 mmol/L (21.0-32.0); Chloride 107 mmol/L (98-107); Estimated GFR (African America >60 (>=60 mL/min/1.73m^2); Estimated GFR (Non-African Ame >60 (>=60 mL/min/1.73m^2); Globulin 2.9 g/dL; Glucose 91 mg/dL (74-106); Potassium 4.2 mmol/L (3.5-5.1); Sodium 144 mmol/L (136-145)
[2025-01-03 07:50] VITALS: BP 145/57; PULSE 57; TEMP 36.5; O2SAT 96
[2025-01-03] MEDS: CLOPIDOGREL BISULFATE 75 MG TABLET PO (08:07)
[2025-01-03] MEDS: CITALOPRAM HYDROBROMIDE 20 MG TABLET 40 MG PO (08:07)
[2025-01-03] MEDS: CIPROFLOXACIN IN 5 % DEXTROSE 400 MG/200 ML PREMIX 200 MG IV (08:08)
[2025-01-03] MEDS: FLUTICASONE PROPIONATE 50 MCG NASAL SPRAY 1 SPRAY NS (08:12)
[2025-01-03 11:00] VITALS: BP 145/57; PULSE 57; TEMP 36.5; O2SAT 96
[2025-01-03 11:30] VITALS: O2SAT 96
--- NOTE | 2025-01-03 13:17 | PM.DS1 ---
DS: Providers Provider Date of admission: 01/02/25 16:04 Primary care physician: Ziggy Dejesus MD Attending physician on admission: Ziggy Dejesus Consults: 01/02/25 17:17 Consult to Pharmacy Routine Consulting Provider: Reason for consultation: Please [place] me when Med Rec is Updated Has provider been notified: No Discharging clinician: Stefanie Layne DS: Diagnosis Discharge Diagnosis (1) Pancreatitis: (2) Acute pancreatitis: (3) Hyperlipidemia: (4) History of prediabetes: (5) Hypertension: DS: Summary Hospital Course Hospital Course: Patient with history of gastric bypass surgery and recently had MRCP by her GI doctor. She presented to the ER yesterday with abdominal pain that wrapped around to her back. Nausea. Patient found to elevated Lipase 569 . Patient was admitted for Acute on chronic pancreatitis-Patient was kept n.p.o. status, IV fluids overnight, was concern for ascending cholangitis so was placed on antibiotics. This morning pain is controlled. She felt the Levsin helped. She is tolerating clear liquid diet. Lipase is 41, WBC's 5.0 and AST/ALT normal at the time of discharge. I have sent [place], Zofran and Levsin to use as needed for pain and nausea. Patient is to keep on clear liquid diet and advance tomorrow as tolerated. She will call Dr. Dejesus's office Sunday and make follow up appointment. Return to the ER with any worsening signs or symptoms. Status at Discharge Functional status at discharge: independent ambulation Overall status at discharge: patient is back to baseline Time Spent with Patient Time attestation: Total time spent providing and/or coordinating discharge services: Time spent: greater than 30 minutes Exam Narrative Exam Narrative: General: Patient is alert, and oriented to person, place and time with normal affect, proper hygiene Skin: no visible rashes, or ulcers Head: atraumatic, acephalic Eyes: PERRLA, no nystagmus present, conjunctiva clear, no scleral icterus Ears: normal gross auditory acuity Heart: Normal rate and rhythm, no murmurs/rubs/gallops Lungs: no audible wheezes, crackles and normal breath sounds all lung walker Abdomen: Normal audible bowel sounds, no distension, No palpable masses, no organomegaly, no rebound/guarding/ or rigidity Musculoskeletal: no swelling bilateral lower extremities Neuro: CN II-X grossly intact Constitutional Vital Signs, click to edit/add: Last Vital Signs Temp 97.7 F 01/03/25 11:00 Pulse 57 L 01/03/25 11:00 Resp 18 01/03/25 11:00 BP 145/57 H 01/03/25 11:00 Pulse Ox 96 01/03/25 11:30 O2 Del Method Room Air 01/03/25 11:30 DS: Data Data Completed and Pending Labs on day of discharge: Labs from last 24 hours 01/03/25 01/02/25 01/02/25 06:10 15:15 15:11 WBC 5.0 6.5 RBC 4.55 4.93 Hgb 13.7 15.1 Hct 42.0 44.5 MCV 92.3 90.3 MCH 30.1 30.6 MCHC 32.6 33.9 RDW 12.5 12.5 Plt Count 173 214 MPV 9.2 L 9.3 L Neut % (Auto) 55.7 51.9 Lymph % (Auto) 28.2 32.8 Saline % (Auto) 11.1 10.9 Eos % (Auto) 4.6 3.7 Baso % (Auto) 0.2 0.5 Neut # (Auto) 2.8 3.4 Lymph # (Auto) 1.4 2.1 Saline # (Auto) 0.6 0.7 Eos # (Auto) 0.2 0.2 Baso # (Auto) 0.0 0.0 Abs Immat Gran (auto) 0.01 0.01 Imm/Tot Granulo (auto) 0.2 0.2 PT 10.9 INR 1.03 APTT 31.4 Sodium 144 141 Potassium 4.2 4.3 Chloride 107 103 Carbon Dioxide 30.4 29.3 Anion Gap 10.8 13.0 BUN 15.0 28.0 H Creatinine 0.72 0.66 Est GFR ( Amer) >60 >60 Est GFR (Non-Af Amer) >60 >60 BUN/Creatinine Ratio 20.8 42.4 Glucose 91 75 Lactate 0.9 Calcium 8.9 9.5 Total Bilirubin 0.4 0.2 AST 23 30 ALT 35 41 Alkaline Phosphatase 90 114 Ammonia 24 Troponin I High Sens 6.1 Total Protein 6.0 L 7.0 Albumin 3.1 L 3.6 Globulin 2.9 3.4 Albumin/Globulin Ratio 1.1 1.1 Triglycerides 124 Cholesterol 189 LDL Cholesterol, Calc 110.2 VLDL Cholesterol 24.8 HDL Cholesterol 54 Cholesterol/HDL Ratio 3.5 Amylase 136 H Lipase 41.0 569.0 H Urine Color Lt. yellow Urine Clarity Clear Urine pH 7.5 Ur Specific [place] 1.010 Urine Protein Negative Urine Glucose (UA) Negative Urine Ketones Negative Urine Occult Blood Negative Urine Nitrite Negative Urine Bilirubin Negative Urine Urobilinogen 0.2 Ur Leukocyte Esterase Small A Urine RBC None seen Urine WBC 0-2 A Ur Squamous Epith Cells Moderate A Urine Crystals None seen Urine Bacteria Trace A Urine Casts None seen Urine Mucus Trace A Discharge Plan Discharge Disposition: Home, Self-Care Discharge Medications: New hydrocodone-acetaminophen 5-325 mg tablet 1 tab PO Q8H PRN (Reason: pain) 3 Days Qty: 9 0RF Rx Instructions: Diagnosis: Acute Pancreatitis ondansetron 4 mg tablet,disintegrating 4 mg PO Q8H PRN (Reason: nausea and vomiting) 2 Days Qty: 6 0RF hyoscyamine sulfate 0.125 mg Tablet, Sublingual 0.125 mg sublingual QID 3 Days Qty: 12 0RF Continued aspirin 81 mg tablet,delayed release (DR/EC) 81 mg PO DAILY cevimeline 30 mg capsule 30 mg PO TID citalopram 40 mg tablet 40 mg PO DAILY fluticasone propionate 50 mcg/actuation spray,suspension 1 spray INTRANASAL BID rabeprazole 20 mg tablet,delayed release (DR/EC) 20 mg PO BID tamsulosin 0.4 mg capsule 0.4 mg PO DAILY amlodipine 2.5 mg tablet 2.5 mg PO DAILY clopidogrel 75 mg tablet 75 mg PO DAILY nitroglycerin 0.4 mg tablet, sublingual 0.4 mg sublingual Q5M PRN (Reason: chest pain) estradiol 0.01 % (0.1 mg/gram) cream 0.25 appful VAGINAL .every other day mirabegron 50 mg tablet extended release 24 hr 50 mg PO .qhs atorvastatin 20 mg tablet 20 mg PO DAILY PreserVision AREDS-2 250-90-40-1 mg capsule 1 tab PO BID Creon 24,000-76,000 -120,000 unit capsule,delayed release(DR/EC) 1 cap PO ACHS Saccharomyces boulardii [Digest Probiotic (S.boulardii)] 1 cap PO .QD Patient Comments: takes two in am and 1 in pm Discontinued hyoscyamine sulfate 0.125 mg tablet 0.125 mg PO Q12H PRN (Reason: abdominal pain) Activity: increase activity as tolerated Diet: other Diet Detail: clear liquid diet and advance as tolerated Print Language: Tristanian Forms: Portal Instructions Follow Up Appointments: Call Dr. Dejesus's office Sunday for follow up appointment
--- NOTE | 2025-01-05 15:27 | CM.DCFOLLOWU ---
Person spoke with: Tiarra How are you feeling? Pain is much better How is your pain? Controlled Did you understand your discharge instructions? Yes Do you have any questions about your discharge instructions? No Were you given any prescriptions at discharge? Yes Were you able to get your prescriptions filled? Yes Do you understand how to take your medications as ordered? Yes Do you have any questions about your follow up appointment and do you plan to keep your follow up appointment? Yes Is there anything else that you would like to discuss? No Questions/Comments/Concerns/Other:
== END 2025-01-03 13:39 | disposition home or self-care (01) | DRG 439 ==
LOC: ER 13:49 → MS 17:05
PROVIDERS: Admitting Provider Family Medicine; Emergency Provider Emergency Medicine; PCP Family Medicine; Visit Provider Family Medicine
DX: K85.90 Acute pancreatitis without necrosis or infection, unspecified (principal); K83.09 Other cholangitis; R73.03 Prediabetes; I10 Essential (primary) hypertension; Z98.84 Bariatric surgery status; Z98.890 Other specified postprocedural states; K86.1 Other chronic pancreatitis; Z79.82 Long term (current) use of aspirin; Z79.899 Other long term (current) drug therapy; F32.A Depression, unspecified; Z95.5 Presence of coronary angioplasty implant and graft; Z95.1 Presence of aortocoronary bypass graft; Z90.49 Acquired absence of other specified parts of digestive tract; E78.00 Pure hypercholesterolemia, unspecified; K21.9 Gastro-esophageal reflux disease without esophagitis
CPT/HCPCS: 36415; 80053; 80061; 81001; 82140; 82150; 83605; 83690; 84484; 85025; 85610; 85730; 94667; 94761; 96374; 96375; 99285; J0744; J1836; J2270; J2405

== ENCOUNTER 2025-01-28 20:46 | Outpatient (OUT) | payer BC, SELFPAY | END 2025-01-28 20:47 | disposition home or self-care (01) | LOC: SLEEP 20:46 | PROVIDERS: PCP Family Medicine; Visit Provider Family Medicine | DX: G47.33 Obstructive sleep apnea (adult) (pediatric) (principal); R53.83 Other fatigue | CPT/HCPCS: 95810 ==

== ENCOUNTER 2025-03-04 20:14 | Outpatient (OUT) | payer BC, SELFPAY ==
--- OUTSIDE RECORDS SUMMARY | 2024-09-10 09:15 | XMS_ITS | Continuity of Care Document ---
Author Organization [employer] [facility] Address [address] [place] [address] Phone Care Team Providers Care Delimer Name Role Phone Johanna Raygoza CNP Unavailable [...] Providers Copied on Encounter OFFICE/OUTPATI ENT VISIT, [facility], [address], [place], [place], [address], [place] tel:[phone] [facility] No Information Idalmsi Spencer. [address] [facility] [address], [place], [address], [place]. tel:[phone] Referring Provider: Johanna Raygoza, [address] [facility] [address], [place], [address]. tel:[phone] OFFICE/OUTPATI ENT VISIT, [employer] [facility], [address], [place], [place], [address], [place] tel:[phone] [facility] No Information Idalmis Spencer. [address], [place], [place], [address], [place]. tel:[phone] Referring Provider: Johanna Raygoza, [facility] [address], [place], [address]. tel:[phone] OFFICE/OUTPATI ENT VISIT, [facility], [address] [place] [address] [address], [place], [place], [address], [place] tel:[phone] [facility] No Information Idalmis Spencer. [address] [facility] [address], [place], [place], [address], [place]. tel:[phone] Referring Provider: Johanna Raygoza, [facility] [address] [facility] [address], [place], [address]. tel:[phone] OFFICE/OUTPATI ENT VISIT, [facility], [address], [place], [place], [address], [place] tel:[phone] [facility] No Information Idalmis Spencer. [address] [facility] [address], [place], [place], [address], [place]. tel:[phone] Referring Provider: Johanna Raygoza, [address] [facility] [address], [place], [address]. tel:[phone] OFFICE/OUTPATI ENT VISIT, [facility], [address], [place], [place], [address], [place] tel:[phone] [facility] No Information Idalmis Spencer. [address], [place], [place], [address], [place]. tel:[phone] Referring Provider: Johanna Raygoza, [address], [place], [address]. tel:[phone] OFFICE/OUTPATI ENT VISIT, [facility] [employer] [facility], [address] [place] [address] [address], [place], [address], [place] tel:[phone] [facility] No Information Idalmis Spencre. [address] [place] [address] [address], [place], [place], [address], [place]. tel:[phone] Referring Provider: Johanna Raygoza, [address] [place] [address] [address], [place], [address]. tel:[phone] OFFICE/OUTPATI ENT VISIT, [facility] [employer] [facility], [address] [place] [address] [address], [place], [address], [place] tel:[phone] [facility] No Information Idalmis Spencer. [address] [place] [address] [address], [place], [place], [address], [place]. tel:[phone] Referring Provider: Johanna Raygoza, [address] [place] [address] [address], [place], [address]. tel:[phone] [facility], [address] [place] [address] [address], [place], [address], [place] tel:[phone] [facility] No Information Idalmis Spencer. [address] [place] [address] [address], [place], [place], [address], [place]. tel:[phone] Referring Provider: Johanna Raygoza, [address] [place] [address] [address], [place], [address]. tel:[phone] [facility], [address] [place] [address] [address], [place], [place], [address], [place] tel:[phone] [facility] No Information Idalmis Spencer. [address] [place] [address] [address], [place], [place], [address], [place]. tel:[phone] Referring Provider: Johanna Raygoza, [address] [place] [address] [address], [place], [address]. tel:[phone] [place] [employer] [facility], [address] [place] [address] [address], [place], [place], [address], [place] tel:[phone] [facility] IP No Information Cady Mccurdy. [address] [place] [address] [address], [place], [place], [address], [place]. tel:[phone] Referring Provider: Kaz De Los Santos, [address] [place] [address] [address], [place], [address]. tel:[phone] [place] [employer] [facility], [address] [place] [address] [address], [place], [place], [address], [place] tel:[phone] [facility] IP No Information Idalmis Spencer. [address] [place] [address] [address], [place], [place], [address], [place]. tel:[phone] Referring Provider: Johanna Raygoza, [address] [place] [address] [address], [place], [address]. tel:[phone] OFFICE/OUTPATI ENT VISIT, [facility] [employer] [facility], [address] [place] [address] [address], [place], [place], [address], [place] tel:[phone] [facility] No Information Cady Mccurdy. [address] [place] [address] [address], [place], [place], [address], [place]. tel:[phone] Referring Provider: Kaz De Los Santos, [address] [place] [address] [address], [place], [address]. tel:[phone] OFFICE/OUTPATI ENT VISIT, [facility] [employer] [facility], [address] [place] [address] [address], [place], [place], [address], [place] tel:[phone] [facility] No Information Cady Mccurdy. [address] [place] [address] [address], [place], [place], [address], [place]. tel:[phone] Referring Provider: Kaz De Los Santos, [address] [place] [address] [address], [place], [address]. tel:[phone] [facility], [address], [place], [place], [address], [place] tel:[phone] [facility] No Information Cady Mccurdy. [address] [facility] [address], [place], [place], [address], [place]. tel:[phone] Referring Provider: Kaz De Los Santos, [address] [facility] [address], [place], [address]. tel:[phone] Family History Family Member Type Diagnosis Age At Onset No Information Payers Payer name Insurance type Covered alliance party ID Raad gomez(eva Jones [id number] Social History Type Description Quantity Date Captured Comments Sex Female Smoking Status No Information Sexual Orientation Bisexual Chief Complaint And Reason For Visit No [...]
--- OUTSIDE RECORDS SUMMARY | 2025-01-08 09:00 | XMS_ITS ---
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 Role Phone Deacon Dejesus Primary Care Provider [phone] Allergies Allergen (clinical drug ingredient) Drug/Non Drug Allergy documented on EMR Reaction Allergy Type Onset Date Status rosuvastatin Crestor elevated LFT Drug Allergy A ctive Levaquin thrush Drug Allergy Active baclofen Baclofen SOB Drug Allergy Active Latex Latex Unknown Allergy Active Substance with sulfonamide structure and antibacterial mechanism of action (substance) Sulfa Antibiotics hives Drug Allergy Active Penicillin rash/lethargic Drug Allergy A ctive REASON FOR VISIT f/u ER was there over night, Still feeling very tired, pain still a 2-3- states is livable- Levsin seems to help- needs refill of that Medications Medication SIG (Take, Route, Frequency, Duration) Notes Start Date End Date Status Citalopram Hydrobromide 40 MG 1 tablet O rally Once a day for 30 days Active Hyoscyamine Sulfate 0.125 MG 2 tablet as needed Orally every 4 hrs PRN abd pain 04/28/2024 Active Cevimeline HCl 30 MG 1 capsule Orally qi d for 90 days 02/12/2024 Active Aspirin Low Dose 81 MG Oral for 90 Days Active traMADol HCl 50 MG 1 tablet as needed Orally 4 times a day for 7 days 01/24/2024 Active Tamsulosin HCl 0.4 MG 1 capsule Orally B ID for 90 days Active RABEprazole Sodium 20 MG TAKE 1 TABLET T WICE A DAY for 90 days Active PreserVision AREDS A ctive Pancrelipase ([id number]-Uqwg-Dhjc) 66184-75857 UNIT 1 capsule Orally ac and hs 09/25/2024 Active Nystatin 713445 UNIT/GM 1 application Externally Twice a day for 30 days 11/12/2023 Active hydroCHLOROthiazide 12.5 MG Oral for 90 Days Active Fluticasone Propionate 50 MCG/ACT INSTILL 1 SPRAY IN EACH NOSTIRL TWICE A DAY. for 90 Active Estradiol Active Clopidogrel Bisulfate 75 MG 1 tablet Ora lly Once a day 08/27/2024 Active Nitroglycerin 0.[address] 1 tablet unde r the tongue if needed every 5 minutes for nimco... (REFER TO PRESCRIPTION NOTES). Sublingual for 30 Days Active Social History Tobacco Use: Social History Observation Description Date Details (start date - stop date) Never Smoker NA - NA Tobacco Use/Smoking Question Answer Notes Patient is a nonsmoker Problems Problem Type SNOMED Code ICD Code Onset Dates Problem Status W/U Status Risk Notes Problem Snoring (85763427) Snoring (R06.83) Active confirmed Problem Fatigue (R53.83) Active confirmed Vital Signs Weight 173.8 lbs 01/08/2025 Height 63 in 01/08/2025 Blood pressure systolic 122 mm Hg 01/09/20 25 Blood pressure diastolic 80 mm Hg 025 BMI 30.78 kg/m2 01/08/2025 Procedures Procedure Date Ordered Date Performed Result Body Sit e Sleep study - Diagnostic Polysonogram 01/08/2025 N/A Encounters Encounter Location Date Provider Diagnosis [facility] [address] [place] [address] 01/08/2025 Deacon Hoy Fatigue R53.83 ; Sno ring R06.83 and Chronic pancreatitis K86.1 Assessments Encounter Date Diagnosis (ICD Code) Assessment Notes Treatment Notes Treatment Clinical Notes Section Notes 01/08/2025 Fatigue (ICD-10 - R53.83) 01/08/2025 Snoring (ICD-10 - R06.83) 01/08/2025 Chronic pancreatitis (ICD-10 - K86.1) Plan Of Treatment Medication Medication Name Sig Start Date Stop Date Notes Hyoscyamine Sulfate 0.125 MG 2 tablet as needed Orally every 4 hrs PRN abd pain 04/28/2024 Pending Test Test Name Order Date Sleep study - Diagnostic Polysonogram Progress Notes * Tiarra SALEEM CDOB:[birth year] (59 yo F)Acc No.[id number]:01/08/2025 Progress Note Patient: Tiarra JIM Provider: Bharti Dejesus ([facility])MD :1965 A ge:59 Y S ex:Female Date:01/08/2025 Address:[address] [place], [place] [id number] Check In:12:58 PM ESTCheck O ut:01:28 PM EST Subjective: * Chief Complaints: * f /u ER was there over nightStill feeling very tired, pain still a 2-3- states is livable- Levsin seems to help- needs refill of that * HPI: G eneral: daytme fatigue - snoring - needs sleep study seeing Dr Cooper tomorrow after MRCP. * ROS: E ENT: hearing changes d enies. v isual changes d enies.?non-healing mouth sores d enies. s wollen glands or neck lumps d enies. h oarseness d enies. s ore throat d enies. d ifficulty swallowing d enies. n ose bleeds d enies. n dejah congestion d enies. e ar ache d enies. e ar discharge?denies. r inging in ears d enies. l ight sensitivity d enies. e ye pain d enies. b lurring d enies. e ye irritation d enies. d ouble vision d enies.?vision loss d enies. G eneral/Constitutional: Sweats: D enies. F atigue d enies. S leep problems d enies. A norexia d enies. M alaise d enies. W eight loss d enies.?Fatigue or Weakness d enies. F ever or Chills d enies. C ardiovascular: Shortness of Breath w/lying flat d enies. L ightheadedness/dizziness d enies. C hest tightness/ heavy pressure d enies. S welling of legs, ankles, or feet d enies. W aking up with shortness of breath d enies. C hest pain denies. P alpitations d enies. W eight gain d enies. R espiratory: Chronic or frequent cough d enies. C oughing up blood?denies. D ifficulty breathing d enies. P roductive cough d enies. S noring?denies. S hortness of breath that awakens from sleep (PND) d enies. C hest pain d enies. S putum production d enies. W heezing d enies. M usculoskeletal: Joint pain d enies. J oint Fluid d enies. B ack pain d enies. K nee pain d enies. N andrea pain d enies. J oint Stiffness d enies. M uscle cramps d enies. W eakness of muscles d enies. A rthritis d enies. M uscle aches d enies. P ain in shoulder(s) d enies. S wollen joints d enies. * Active Problem List I10 Hypertension Modified On:11/12/2023U Status:confirmed K21.9 GERD (gastroesophage al reflux disease) Modified On:11/12/2023U Status:confirmed I25.10 CAD (coronary artery disease) Modified On:11/12/2023U Status:confirmed I25.5 Cardiomyopathy, isch emic Modified On:11/12/2023U Status:confirmed E78.1 Hypertriglyceridemia Modified On:11/14/2023U Status:confirmed M25.50 Arthralgia Modified On:11/12/2023U Status:confirmed E78.00 Hypercholesteremia Modified On:11/12/2023U Status:confirmed E11.9 Controlled type 2 di abetes mellitus Modified On:11/12/2023U Status:confirmed I25.2 Acute myocardial inf arct greater than 3 months ago Modified On:11/12/2023U Status:confirmed 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, unspecified Modified On:03/13/2023U Status:confirmed N39.0 Acute UTI (urinary t ract infection) Modified On:11/12/2023U Status:confirmed R10.9 Abdominal pain Modified On:01/24/2024 Status:confirmed K85.90 Acute pancreatitis Modified On:01/25/2024 Status:confirmed K86.1 Chronic pancreatitis Modified On:02/12/2024 Status:confirmed E78.00 Hypercholesterolemia Modified On:02/13/2024 Status:confirmed F32.9 Depression Modified On:02/13/2024 Status:confirmed I10 BP (high blood press ure) Modified On:03/05/2024 Status:confirmed R10.11 Right upper quadrant pain Modified On:04/28/2024 Status:confirmed E78.5 Hyperlipidemia Modified On:10/13/2024 Status:confirmed E78.5 Hyperlipemia Modified On:10/17/2024 Status:confirmed I10 Benign essential HTN Modified On:10/17/2024 Status:confirmed R06.83 Snoring Modified On:01/08/2025 Status:confirmed R53.83 Fatigue Modified On:01/08/2025 Status:confirmed * Medical History: * Surgical History: H ysteroscopy and D&C 06/18/2023Sinus Surgery, Dr. Messer 12/2017Gastric Bypass 01/29/2018Cysto, Dr. Stoll 04/24/2018 & 07/24/2018Decompression of median nerve and release and transverse carpal ligament- Right, Dr. Mckeon 2Cholecystectomy Coronary Artery Disease- S/P Bypass- 4 Vessels- [facility] Peripheral Vascular Angioplasty Cardiac Cath, Left 2014endoscope 03/06/24 * Hospitalization/Major Diagno stic Procedure: P ancratitis ancreatitis 2024 * Family History: F ather: , Heart Disease, Lung Disease, COPD, diagnosed with Unspecified heart disease. M other: alive, Open Heart surgery x2, Cardiac History, anemic, rheumatoid arthritis , Hypercholesterolemia, diagnosed with Unspecified essential hypertension. B rother(s): alive, Open Heart Surgery, Hypertension, Stroke, diagnosed with Unspecified essential hypertension. S ister(s): alive, diagnosed with Unspecified essential hypertension. 3 brother(s) , 2 sister(s) . . * Social History: T obacco Use: T obacco Use/Smoking P atient is a n onsmoker * Medications: T akingAspirin Low Dose(Aspirin) 81 MG Tablet Delayed Release Oral Cevimeline HCl 30 MG Capsule 1 capsule Orally qid Citalopram Hydrobromide 40 MG Tablet 1 tablet Orally Once a day Clopidogrel Bisulfate 75 MG Tablet 1 tablet Orally Once a day Estradiol Fluticasone Propionate 50 MCG/ACT Suspension INSTILL 1 SPRAY IN EACH NOSTIRL TWICE A DAY. hydroCHLOROthiazide 12.5 MG Tablet Oral Hyoscyamine Sulfate 0.125 MG Tablet 2 tablet as needed Orally every 4 hrs PRN abd pain Nitroglycerin 0.[address] Sublingual place 1 tablet under the tongue if needed every 5 minutes for nimco... (REFER TO PRESCRIPTION NOTES). Sublingual Nystatin 044486 UNIT/GM Powder 1 application Externally Twice a day Pancrelipase (Xfq-Kevt-Ujoa) 29139-[address]781 UNIT Capsule Delayed Release Particles 1 capsule Orally ac and hs PreserVision AREDS RABEprazole Sodium 20 MG Tablet Delayed Release TAKE 1 TABLET TWICE A DAY Tamsulosin HCl 0.4 MG Capsule 1 capsule Orally BID traMADol HCl 50 MG Tablet 1 tablet as needed Orally 4 times a day Medication List reviewed and reconciled with the patientTaking Aspirin Low Dose(Aspirin) 81 MG Tablet Delayed Release Oral Taking Cevimeline HCl 30 MG Capsule 1 capsule Orally qid Taking Citalopram Hydrobromide 40 MG Tablet 1 tablet Orally Once a day Taking Clopidogrel Bisulfate 75 MG Tablet 1 tablet Orally Once a day Taking Estradiol Taking Fluticasone Propionate 50 MCG/ACT Suspension INSTILL 1 SPRAY IN EACH NOSTIRL TWICE A DAY. Taking hydroCHLOROthiazide 12.5 MG Tablet Oral Taking Hyoscyamine Sulfate 0.125 MG Tablet 2 tablet as needed Orally every 4 hrs PRN abd pain Taking Nitroglycerin 0.[address] 1 tablet under the tongue if needed every 5 minutes for nimco... (REFER TO PRESCRIPTION NOTES). Sublingual Taking Nystatin 554145 UNIT/GM Powder 1 application Externally Twice a day Taking Pancrelipase (Ugx-Rhnj-Ecga) 61936-63667 UNIT Capsule Delayed Release Particles 1 capsule Orally ac and hs Taking PreserVision AREDS Taking RABEprazole Sodium 20 MG Tablet Delayed Release TAKE 1 TABLET TWICE A DAY Taking Tamsulosin HCl 0.4 MG Capsule 1 capsule Orally BID Taking traMADol HCl 50 MG Tablet 1 tablet as needed Orally 4 times a day Medication List reviewed and reconciled with the patient * Allergies: L evaquin: thrush - AllergyPenicillin: rash/lethargic - AllergyCrestor: elevated LFT - AllergyBaclofen: SOB - AllergyLatex: AllergySulfa Antibiotics: hives - Allergyno[Allergies Verified] Objective: * Vitals: W t:173.8lbs, Ht: 63 in, BP:122/80mm Hg, BMI:30.78Index, Ht-cm: 160.02 cm, Wt-k.84 kg. * Examination: P hysical Exam: GENERAL: w ell developed, well nourished, in no acute distress. HEAD: n ormocephalic/atraumatic. EYES: p upils equal, round and reactive to light, conjunctivae and sclerae normal. EARS: n o deformity or lesion of external ear, canals and TM appear normal bilaterally, TM's intact, not inflamed with normal light reflex, hearing grossly normal to conversational speech. NOSE: n o deformity, discharge, inflammation, or lesions.? MOUTH: m ucous membranes moist, normal oropharynx and posterior pharynx without lesions or exudates, tongue normal, dentition normal. NECK: n andrea supple, no masses or palpable cervical nodes, trachea midline, thyroid without nodules, masses, tenderness, or enlargement. CHEST: n o chest wall deformity, no chest wall tenderness.? LUNGS: n ormal respiratory effort and clear to auscultation, no wheezes, rales, or rhonchi, good air exchange. CARDIO: r egular rate and rhythm, normal S1 and S2, nor murmur, rub, or gallop. PULSES: n ormal capillary refill. ABDOMEN: s oft, non-distended, non-tender, no masses. MUSCULOSKELETAL: n o deformity or scoliosis noted, normal range of motion, joints normal, no erythema, edema, effusion, or ecchymosis. EXTREMITY: n o clubbing, cyanosis, edema, or deformity with normal ROM in both upper and lower bilateral extremities. NEUROLOGIC: g rossly normal. SKIN: n o rashes, ulcerations, or suspicious lesions. LYMPH NODES: n o cervical adenopathy, nodes normal. MENTAL STATUS: a lert and oriented x3, normal mood and affect. Assessment: * Assessment: 1. F pablo - R53.83 (Primary) 2 . S noring - R06.83 3 .?Chronic pancreatitis - K86.1 Plan: * Treatment: * Procedure Codes: * Preventive Medicine: Screenings/Counseling: B [place] ACTION PLAN Above Normal BMI Follow-up D ietary management education, guidance, and counseling * * Sign off status: Completed Visit Status: C HK (Check Out) true * Provider: Bharti Dejesus ([facility])MD Date: 0 01/08/2025 Generated for Printi ng/Faxing/eTransmitting on: 0 03/04/2025 08:17 PM EDT History and Physical Notes * HPI (History of Present Illness) Category Sub-Category Detail Notes Category Not es General daytme fatigue - snoring - needs sleep study seeing Dr Cooper tomorrow after MRCP Examination Category Sub-Category Detail Notes Category Not es Physical Exam GENERAL: well developed, well nourished, in no acute distress HEAD: normocephalic/atraum atic EYES: pupils equal, round and reactive to light, conjunctivae and sclerae normal EARS: no deformity or lesi on of external ear, canals and TM appear normal bilaterally, TM's intact, not inflamed with normal light reflex, hearing grossly normal to conversational speech NOSE: no deformity, discha rge, inflammation, or lesions MOUTH: mucous membranes richa st, normal oropharynx and posterior pharynx without lesions or exudates, tongue normal, dentition normal NECK: neck supple, no mass es or palpable cervical nodes, trachea midline, thyroid without nodules, masses, tenderness, or enlargement CHEST: no chest wall deform ity, no chest wall tenderness LUNGS: normal respiratory e ffort and clear to auscultation, no wheezes, rales, or rhonchi, good air exchange CARDIO: regular rate and rhy thm, normal S1 and S2, nor murmur, rub, or gallop PULSES: normal capillary ref ill ABDOMEN: soft, non-distended, non-tender, no masses RECTAL: MUSCULOSKELETAL: no deformity or scol iosis noted, normal range of motion, joints normal, no erythema, edema, effusion, or ecchymosis EXTREMITY: no clubbing, cyanosi s, edema, or deformity with normal ROM in both upper and lower bilateral extremities NEUROLOGIC: grossly normal SKIN: no rashes, ulceratio ns, or suspicious lesions LYMPH NODES: no cervical adenopat hy, nodes normal MENTAL STATUS: alert and oriented x 3, normal mood and affect
--- OUTSIDE RECORDS SUMMARY | 2025-02-09 04:02 | XMS_ITS ---
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 Name Role Phone Anjelica Deacon Primary Care Provider [phone] REASON FOR VISIT sick Medications Medication SIG (Take, Route, Fr equency, Duration) Notes Start Date End Date Status Azithromycin 250 MG 2 tabs today then 1 tab Orally daily for 5 days 02/09/2025 Active Encounters Encounter Location Date Provider Diagnosis [facility] [address] [place] [address] 02/09/2025 Deacon Dejesus Plan Of Treatment Medication Medication Name Sig Start Date Stop Date Notes Azithromycin 250 MG 2 tabs today then 1 tab Orally daily for 5 days 02/09/2025 Progress Notes * Tiarra SALEEM CDOB:[birth year] (59 yo F)Acc No.[id number]:02/09/2025 Patient: Megan Tiarra HERNANDES :1965 A ge:59 Y S ex:Female Address:[address] [place] [address], [id number] * Refills Start Azithromycin Tablet, 250 MG, Orally, 6, 2 tabs today then 1 tab, daily, 5 days, Refills=0 * true * Date: Generated for Kenia antonio/Falarryg/eTransmitting on: 0 03/04/2025 08:17 PM EDT
--- OUTSIDE RECORDS SUMMARY | 2025-02-18 12:30 | XMS_ITS ---
Author Organization [facility] [place] Address [address] [place] [address] Care Team Providers Care Balance Sheet Analyst Name Role Phone Deacon Dejesus Primary Care Provider Allergies Allergen (clinical drug ingredient) Drug/Non Drug [...] Drug Allergy A ctive REASON FOR VISIT cough and sore throat still, lasting 2 weeks, atb's completed on Medications Medication SIG (Take, Route, Frequency, Duration) Notes Start Date End Date Status Nystatin 692086 UNIT/GM 1 application Externally Twice a day for 30 days 11/12/2023 Active Pancrelipase (Iol-Fqed-Coma) 22105-57687 UNIT 1 capsule Orally ac and hs 09/25/2024 Active Hyoscyamine Sulfate 0.125 MG 2 tablet as needed Orally every 4 hrs PRN abd pain 04/28/2024 Active Nitroglycerin 0.[address] 1 tablet unde r the tongue if needed every 5 minutes for nimco... (REFER TO PRESCRIPTION NOTES). Sublingual for 30 Days Active hydroCHLOROthiazide 12.5 MG Oral for 90 Days Active Fluticasone Propionate 50 MCG/ACT INSTILL 1 SPRAY IN EACH NOSTIRL TWICE A DAY. for 90 Active Estradiol Active Citalopram Hydrobromide 40 MG 1 tablet O rally Once a day for 30 days Active Clopidogrel Bisulfate 75 MG 1 tablet Ora lly Once a day 08/27/2024 Active Cevimeline HCl 30 MG 1 capsule Orally qi d for 90 days 02/12/2024 Active Cefdinir 300 MG 2 capsule Orally onc e a day for 10 days 02/18/2025 Active hydroCHLOROthiazide 25 MG 1 tablet in th e morning Orally Once a day for 30 day(s) 02/18/2025 Active Tamsulosin HCl 0.4 MG 1 capsule Orally B ID for 90 days Active traMADol HCl 50 MG 1 tablet as needed Orally 4 times a day for 7 days 01/24/2024 Active Aspirin Low Dose 81 MG Oral for 90 Days Active PreserVision AREDS A ctive RABEprazole Sodium 20 MG TAKE 1 TABLET T WICE A DAY for 90 days Active Social History Tobacco Use: Social History Observation Description Date Details (start date - stop date) Never Smoker NA - NA Tobacco Use/Smoking Question Answer Notes Patient is a nonsmoker AUDIT-C (Standard) Question Answer Notes Did you have a drink containing alcohol in the p ast year? No Points 0 Interpretation Negative Vital Signs Weight 179 lbs 02/18/2025 Height 63 in 02/18/2025 Blood pressure systolic 140 mm Hg 02/19/20 Blood pressure diastolic 82 mm Hg 025 Temperature 97.6 degrees Fahrenheit 02/19/20 BMI 31.7 kg/m2 02/18/2025 Encounters Encounter Location Date Provider Diagnosis [facility] [address] [place] [address] 02/18/2025 Deacon Hoy Acute bronchitis, unspecified organism J20.9 Assessments Encounter Date Diagnosis (ICD Code) Assessment Notes Treatment Notes Treatment Clinical Notes Section Notes 02/18/2025 Acute bronchitis, unspecified organism (ICD-10 - J20.9) Rest and drink more liquids, especially water. You may use a humidifier or vaporizer to help keep the drainage moist. Cmex-gsm-trbpqup Nasal Saline may help the stuffy and runny nose. Use Ibuprofen and or Tylenol as needed for fever, chills, body aches or pain. Children 5 years old should not be given qvpc-vqw-iffldso cough and cold medications such as guaifenesin and dextromethorphan. If you're over age 5, you may try ired-dhl-bbsqvur cold medications such as guaifenesin and dextromethorphan, or multi-symptom cold reliever such as Dayquil to help reduce the symptoms. Antibiotics have been prescribed. You should take these until completed and follow the directions. Antibiotics can sometimes cause upset stomach, and in rare cases, serious allergic reactions or serious gastrointestinal problems. If you start having severe abdominal pain, severe vomiting, or bloody diarrhea, you should be reevaluated by your physician or urgent care immediately. Follow up with your Primary Care Provider or return to clinic if symptoms do not improve within 3-5 days. If you develop severe symptoms such as shortness of breath, repeated vomiting, coughing up blood, or chest pain you should go to the emergency room or call 911 Plan Of Treatment Medication Medication Name Sig Start Date Stop Date Notes Cefdinir 300 MG 2 capsule Orally onc e a day for 10 days 02/18/2025 hydroCHLOROthiazide 25 MG 1 tablet in th e morning Orally Once a day for 30 day(s) 02/18/2025 Treatment Notes Assessment Notes Acute bronchitis, unspecified organism R est and drink more liquids, especially water. You may use a humidifier or vaporizer to help keep the drainage moist. Sjfe-wte-lqycvit Nasal Saline may help the stuffy and runny nose. Use Ibuprofen and or Tylenol as needed for fever, chills, body aches or pain. Children 5 years old should not be given elvt-ojl-ayznmhm cough and cold medications such as guaifenesin and dextromethorphan. If you're over age 5, you may try gonb-vmv-gksdkgz cold medications such as guaifenesin and dextromethorphan, or multi-symptom cold reliever such as Dayquil to help reduce the symptoms. Antibiotics have been prescribed. You should take these until completed and follow the directions. Antibiotics can sometimes cause upset stomach, and in rare cases, serious allergic reactions or serious gastrointestinal problems. If you start having severe abdominal pain, severe vomiting, or bloody diarrhea, you should be reevaluated by your physician or urgent care immediately. Follow up with your Primary Care Provider or return to clinic if symptoms do not improve within 3-5 days. If you develop severe symptoms such as shortness of breath, repeated vomiting, coughing up blood, or chest pain you should go to the emergency room or call 911 Next Appt Details Follow Up: 3-5 days if not i mproving, Reason: Progress Notes * SALEEM, Tiarra CDOB:[birth year] (59 yo F)Acc No.[id number]:02/18/2025 Progress Note Patient: Tiarra JIM Provider: Bharti Dejesus ([facility])MD :1965 A ge:59 Y S ex:Female Date:02/18/2025 Address:[address] [place], [place] [id number] Check In:04:29 PM ESTCheck O ut:05:10 PM EST Subjective: * Chief Complaints: * C ough and sore throat still, lasting 2 weeks, atb's completed on * HPI: G eneral: Cough adn horseness - ab didnt hel[p - Yellow. B ronchitis: The patient complains of symptoms of bronchitis. The symptoms have been present for 1-2 days. The symptoms are moderate. The patient has not been exposed to sick contacts. Symptomatic treatment has included OTC medication. Associated symptoms include nasal congestion, postnasal drainage, congested ears, cough, fever, chills, body aches. * ROS: E NT: Ear pain d enies. H oarseness d enies. ? C ardiovascular: Edema d enies. P alpitations d enies. ? R espiratory: Comments S ee HPI for details. G astrointestinal: Abdominal pain d enies. D iarrhea d enies. N ausea d enies. S kin: Rash d enies. * Active Problem List I10 Hypertension Modified On:11/12/2023 Status:confirmed K21.9 GERD (gastroesophage al reflux disease) Modified On:11/12/2023 Status:confirmed I25.10 CAD (coronary artery disease) Modified On:11/12/2023 Status:confirmed I25.5 Cardiomyopathy, isch emic Modified On:11/12/2023 Status:confirmed E78.1 Hypertriglyceridemia Modified On:11/14/2023U Status:confirmed M25.50 Arthralgia Modified On:11/12/2023 Status:confirmed E78.00 Hypercholesteremia Modified On:11/12/2023 Status:confirmed E11.9 Controlled type 2 di abetes mellitus Modified On:11/12/2023 Status:confirmed I25.2 Acute myocardial inf arct greater than 3 months ago Modified On:11/12/2023 Status:confirmed 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 Mckeon 07/19/2022holecystectomy Coronary Artery Disease- S/P Bypass- 4 Vessels- [...] Use/Smoking P atient is a n onsmoker D rug/Alcohol: A LUIS A-C (Standard) D id you have a drink containing alcohol in the past year? N o P oints 0 I nterpretation N egative * Medications: T akingAspirin Low Dose(Aspirin) 81 [...] nimco... (REFER TO PRESCRIPTION NOTES). Sublingual Nystatin 514720 UNIT/GM Powder 1 application Externally Twice a day Pancrelipase (Ofr-Yixl-Xfbi) 21432-97415 UNIT Capsule Delayed Release Particles 1 capsule [...] (REFER TO PRESCRIPTION NOTES). Sublingual Taking Nystatin 742651 UNIT/GM Powder 1 application Externally Twice a day Taking Pancrelipase (Geq-Adwf-Vtlz) 98872-[address] UNIT Capsule Delayed Release Particles 1 capsule [...] - Allergyno[Allergies Verified] Objective: * Vitals: W t:179lbs, Ht: 63 in, BP:140/82mm Hg, Temp:97.6F, BMI:31.7Index, Ht-cm: 160.02 cm, Wt-k.19 kg. * Examination: G eneral Examination: GENERAL APPEARANCE: in no acute distress. EYES: EOMI. EARS: auditory canal clear, middle ear effusion noted.? NOSE: clear discharge, turbinates pale and swollen. ORAL CAVITY: mucosa moist. THROAT: no erythema, post-nasal drainage noted. NECK: neck supple, no thyromegaly. LYMPH NODES: n o cervical adenopathy. LUNGS: unlabored, clear to auscultation bilaterally. CARDIO: n o murmurs, regular rate and rhythm. ABDOMEN: bowel sounds present, no organomegaly . ? Assessment: * Assessment: 1. A cute bronchitis, unspecified organism - J20.9 (Primary) Plan: * Treatment: * Procedure Codes: * Preventive Medicine: Screenings/Counseling: B LA ACTION PLAN Above Normal BMI Follow-up D ietary management education, guidance, and counseling * Follow Up: 3 -5 days if not improving * * Sign off status: Completed Visit Status: C HK (Check Out) true * Provider: Bharti Dejesus ([facility])MD Date: 0 02/18/2025 Generated for Printi ng/Faxing/eTransmitting on: 0 03/04/2025 08:17 PM EDT History and Physical Notes * HPI (History of Present Illness) Category Sub-Category Detail Notes Category Not es General Cough adn horse ness - ab didnt hel[p - Yellow Examination Category Sub-Category Detail Notes Category Not es General Examination GENERAL APPEARANCE: in no acute di stress EYES: EOMI EARS: auditory canal clear , middle ear effusion noted NOSE: clear discharge, tur binates pale and swollen THROAT: no erythema, post-na rex drainage noted NECK: neck supple, no thyr omegaly CARDIO: no murmurs, regular rate and rhythm LUNGS: unlabored, clear to auscultation bilaterally ABDOMEN: bowel sounds present , no organomegaly LYMPH NODES: no cervical adenopat hy ORAL CAVITY: mucosa moist
--- OUTSIDE RECORDS SUMMARY | 2025-03-04 20:17 | XMS_ITS | Clinical Summary ---
Author Organization [facility] Address [address] [place] [address] Care Team Providers Care Bobbin Marker Name Role Phone Ziggy Dejesus MD Primary Care Provider [phone] Allergies Active Allergy Reactions Criticality Noted Date Comments Baclofen Other (See Comments) 07/10/2017 bradypnea Sulfamethoxazole-Trimetho prim 08/19/2019 Rosuvastatin Calcium 08/19/2019 Fenofibrate 05/15/2023 Other reaction(s): (Louis) 08/08/2011 Latex Anaphylaxis,Shortne ss Of Breath High 03/16/2006 Levofloxacin Other (See Comments) 07/10/2017 thrush Penicillins Hives 03/14/2006 Phenazopyridine Hcl 03/14/2006 Simvastatin 03/14/2006 PT TOLERATES CRESTOR Sulfa Antibiotics Other (See Comments) 10/12/2021 Tobramycin Rash Low 10/04/2022 Trimethoprim 11/01/2022 Other reaction(s): Hives Medications atorvastatin (LIPITOR) 20 MG tablet Take 1 tablet by mouth nightly Active ASPIRIN 81 PO Take by mouth Ac tive tamsulosin (FLOMAX) 0.4 MG capsule Take 1 capsule by mouth daily Active CEVIMELINE HCL PO Take 25 mg by mouth 3 times daily Active calcium carbonate 1500 (600 Ca) MG TABS tablet Take 500 mg by mouth 3 times daily (with meals) Active Diclofenac Sodium 3 % GEL Diclofenac Sodium 3 % External Gel APPLY SPARINGLY TO THE AFFECTED AREA(S) TWICE DAILY. Quantity: 0 Refills: 0 Ordered: 28-Dec-2020 DO Start : 28-Dec-2020 Active 03/30/202 1 Active citalopram (CELEXA) 10 MG tablet Take 2 tablets by mouth daily Active Multiple Vitamins-Minera ls (PRESERVISION AREDS 2 PO) Take by mouth Acti ve Multiple Vitamin (MVI, BARIATRIC ADVANTAGE VITABAND, CHEW TAB) Take 1 tablet by mouth daily Active amLODIPine (NORVASC) 2.5 MG tablet Take 1 tablet by mouth daily 4 09/10/20 25 Active clopidogrel (PLAVIX) 75 MG tablet Take 1 tablet by mouth daily 4 09/05/20 25 Active estradiol (ESTRACE) 0.1 MG/GM vaginal cream Place vaginally daily 4 Active mirabegron (MYRBETRIQ) 50 MG TB24 Take 50 mg by mouth daily 4 Active traMADol (ULTRAM) 50 MG tablet 5 Active Active Problems No known active problems Family History Medical History Relation Name Comments Heart Attack Brother Other Father Cardian Issues Cervical Cancer Mother High Blood Pressure Mother Other Mother Cardiac Issue Other Other No family hx br east cancer Stroke Paternal Grandmother Other Sister had hyst young d/t fibroids Relation Name Status Comments Brother Alive Father Mother Other Paternal Grandmother Sister Social History Tobacco Use Types Packs/Day Years Used Date Smoking Tobacco: Never Smokeless Tobacco: Never Tobacco Cessation:Counseling Given: Not Answered Alcohol Use Standard Drinks/Week Comments Not Currently 0 (1 standard drink = 0.6 oz pur e alcohol) PHQ-2 Answer Date Recorded PHQ-9 Total Score 0 10/28/2024 Interpersonal Safety Domain Source: IP Abuse Scr eening Answer Date Recorded Read-Only, Retired: Physical Abuse Denies 06/18/2023 Read-Only, Retired: Verbal Abuse Denies 06/18/2023 Read-Only, Retired: Emotional abuse Denies 06/18/2023 Read-Only, Retired: Financial Abuse Denies 06/18/2023 Read-Only, Retired: Sexual abuse Denies 06/18/2023 Comments No Sex and Gender Information Value Date Recorded Sex Assigned at Female 10/26/2024 4:50 PM EST Legal Sex Female 12:32 PM EST Gender Identity Not on file Sexual Orientation Not on file Last Filed Vital Signs Vital Sign Reading Time Taken Comments Blood Pressure 128/82 10/28/2024 4:46 PM EST Pulse 70 06/18/2023 3:15 PM EDT Temperature 36.1 C (97 F) 06/18/2023 2:36 PM EDT Respiratory Rate 18 06/18/2023 3:15 PM EDT Oxygen Saturation 96% 06/18/2023 3:15 PM EDT Inhaled Oxygen Concentration - - Weight 69.9 kg (154 lb) 10/28/2024 4:46 PM EST Height 160 cm (5' 3 ) 10/28/2024 4:46 PM EST Body Mass Index 27.28 10/28/2024 4:46 PM EST Plan of Treatment Upcoming Encounters Date Type Department Care Team (Late st Contact Info) Description 11/03/2025 4:15 PM EST Office Visit [facility] Part of [address] [place], [place] [id number] Gaby Murry, DO [address] [place] [address] [address] [place] [address] Annual Health Maintenance Due Date Last Done Comments Lipids 1974 HIV screen 1979 Hepatitis C screen 1982 DTaP/Tdap/Td vaccine (1 - Tdap) 1983 Diabetes screen 1999 Colonoscopy 2009 Colorectal Cancer Screen 2009 FIT/FOBT: Average risk 2009 Fecal-DNA (Cologuard): Average risk 2009 Sigmoidoscopy/CT colonography 2009 Pneumococcal 50+ years Vaccine (2 of 2 - PCV) 05/09/2018 05/09/2017 COVID-19 Vaccine (4 - season) 2024 08/01/2021, 01/29/2021, 01/08/2021 Pap smear 02/07/2025 02/07/2022, 08/19/2019 Flu vaccine (Season Ended) 05/01/202506/05, 06/16/2022, 2022, Additional history exists Breast cancer screen 08/15/2025 08/15/2023, 07/24/2022, 07/28/2021, Additional history exists Depression Screen 10/28/2025 10/28/2024, 10/28/2024 Cervical cancer screen 02/07/2027 HPV (without or with Pap) 02/07/2027 02/07/2022, Respiratory Syncytial Virus (RSV) or age 60 yrs+ (1 - 1-dose 75+ series) 2039 Pneumococcal 0-49 years Vaccine Discontinued 05/09/2017 Shingles vaccine Completed 08/21/2022, 06/16/2022 Hepatitis A vaccine Aged Out No longe r eligible based on patient's age to complete this topic Hepatitis B vaccine Aged Out No longe r eligible based on patient's age to complete this topic Hib vaccine Aged Out No longer eligi ble based on patient's age to complete this topic Meningococcal (ACWY) vaccine Aged Out No longer eligible based on patient's age to complete this topic Meningococcal B vaccine Aged Out No l onger eligible based on patient's age to complete this topic Polio vaccine Aged Out No longer elig ible based on patient's age to complete this topic Procedures Procedure Name Priority Date/Time Associated Diagnosis Comments HUMAN PAPILLOMAVIRUS (HPV) DNA PROBE THIN PREP HIGH RISK Routine 02/07/2022 8:18 AM EDT KILN OPERATOR CYTOLOGY Routine 02/07/2022 8:18 AM EDT HM MAMMOGRAPHY Routine 07/28/2021 from Last 3 Months or Most Recently Relevant to Health Maintenance Results * Human papillomavirus (HPV) DNA probe thin prep high risk (02/07/2022 8:18 AM EDT) Specimen Description .GENITAL - NOT SPECIFIED 02/07/2022 8:18 AM EDT [facility] HPV Sample .THIN PREP 02/07/2022 8:18 AM EDT [facility] HPV, Genotype 16 Not Detected Not Detected 02/07/2022 8:18 AM EDT [facility] HPV, Genotype 18 Not Detected Not Detected 02/07/2022 8:18 AM EDT [facility] HPV, High Risk Other Not Detected Not Detected 02/07/2022 8:18 AM EDT [facility] HPV, Interpretation 02/07/2022 8:18 AM EDT [facility] Comment: This test amplifies and detects DNA of 14 high-risk HPV types associated with cervical cancer and its precursor lesions (HPV types 16,18, 31, 33, 35, 39, 45, 51, 52, 56, 58, 59, 66, and 68). Sensitivity may be affected by specimen collection methods, stage of infection, and the presence of interfering substances. Results should be interpreted in conjunction with other available laboratory and clinical data. A negative high-risk HPV result does not exclude the possibility of future cytologic HSIL or underlying CIN2-3 or cancer. This test is intended for medical purposes only and is not valid for the evaluation of suspected sexual abuse or for other forensic purposes. SPECIMEN FROM GENITAL SYSTEM / Unknown 02/07/2022 8:18 AM EDT Gaby Murry DO HEMATOLOGY ORDERABLES Final Result [facility] [address] [place] [address], [facility] [phone] [place] [id number] [phone] * KILN OPERATOR Cytology (02/07/2022 8:18 AM EDT) Cytology Report INTERPRETATION Cervical material, (ThinPrep vial, Imaging-assisted review): Specimen Adequacy: Satisfactory for evaluation. -Endocervical/tra nsformation zone component is absent. Descriptive Diagnosis: Negative for intraepithelial lesion or malignancy. [facility] Caretaker: KENYA BECERRA(ASCP) Electronically Signed Out /02/10/2022 Procedure/Addendum HPV Procedure Report Date Ordered: 02/08/2022 Status: Signed Out Date Complete: 02/09/2022 By: System Interface Date Reported: 02/09/2022 Sample: HPV Type 16 Result: Not Detected Ref Range: (Not Detected) Sample: HPV Type 18 Result: Not Detected Ref Range: (Not Detected) Sample: Other High Risk HPV Result: Not Detected Ref Range: (Not Detected) Sample: HPV Interp Result: Ref Range: (Not Detected) This test amplifies and detects DNA of 14 high-risk HPV types associated with cervical cancer and its precursor lesions (HPV types 16,18, 31, 33, 35, 39, 45, 51, 52, 56, 58, 59, 66, and 68). Sensitivity may be affected by specimen collection methods, stage of infection, and the presence of interfering substances. Results should be interpreted in conjunction with other available laboratory and clinical data. A negative high-risk HPV result does not exclude the possibility of future cytologic HSIL or underlying CIN2-3 or cancer. This test is intended for medical purposes only and is not valid for the evaluation of suspected sexual abuse or for other forensic purposes. 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 [facility] Rec: [id number] Path Number: [id number] [facility] PATHOLOGISTS [facility] [address] [place] [phone] [facility] CERVICAL MATERIAL 02/07/2022 8:18 AM EDT 02/08/2022 8:18 AM EDT Gaby Murry DO PATHOLOGY/CYTOLOGY OR DERABLES Final Result Performing Organization Address City/State/[facility] Co de Phone Number [facility] [address] [place] [address], [facility] [phone] [phone] * HM MAMMOGRAPHY (07/28/2021) Anatomical Region Laterality Modality Other Gaby Murry DO HEALTH MAINTENANCE Fi nal Result from Last 3 Months or Most Recently Relevant to Health Maintenance Insurance BCBS OUT OF STATE Advance Directives * Full Code (Latest Code Status on File) Date Activated Date Inactivated Comments 06/18/2023 1:21 PM 06/18/2023 5:57 PM Care Teams Bobbin Marker Relationship Specialty Start Date End Date Ziggy Dejesus MD [address] [place] [address] PCP - General Family Medicine 08/19/19
--- OUTSIDE RECORDS SUMMARY | 2025-03-04 20:17 | XMS_ITS | Patient Health Record ---
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 Name Role Phone Deacon Dejesus Primary Care Provider [phone] Allergies Allergen (clinical drug ingredient) Drug/Non Drug Allergy documented on EMR Reaction Allergy Type Onset Date Status rosuvastatin Crestor elevated LFT Drug Allergy A ctive Levaquin thrush Drug Allergy Active baclofen Baclofen SOB Drug Allergy Active Latex Latex Unknown Allergy Active Substance with sulfonamide structure and antibacterial mechanism of action (substance) Sulfa Antibiotics hives Drug Allergy Active Penicillin rash/lethargic Drug Allergy A ctive Results Component Value Reference Range Notes PROF CHEM 8 (BAS METB) Reviewed date:04/29/2024 07:56:58 AM Interpretation: Performing Lab: Notes/Report: [facility] , Sodium 135 136-145 mmol/L Potassium 4.0 3.5-5.1 mmol/L Chloride 101 98-107 mmol/L Carbon Dioxide 31.0 21.0-32.0 mmol/L Anion Gap 7.0 Glucose 90 74-106 mg/dL Blood Urea Nitrogen 26.0 7.0-18.0 mg/dL Creatinine 0.59 0.55-1.02 mg/dL Estimated GFR ( [place] >60 >=60 Estimated GFR (Non- [place] >60 >=60 BUN Creatinine Ratio 44.1 Calcium 9.4 8.5-10.1 mg/dL Performing Lab: see note ML - [facility] LB UA RANDOM W or MICROSCOPIC Reviewed date:04/29/2024 07:56:58 AM Interpretation: Performing Lab: Notes/Report: [facility] , Color Urine LT. YELLOW YELLOW Clarity Urine CLEAR CLEAR Specific [place] Urine 1.010 1.005-1.025 pH Urine 7.5 5.0-9.0 Protein Urine NEGATIVE NEG/TRACE mg/dL Glucose Urine UA NEGATIVE NEGATIVE mg/dL Bilirubin Urine NEGATIVE NEGATIVE Ketones Urine NEGATIVE NEGATIVE mg/dL Blood Urine NEGATIVE NEGATIVE Nitrite Urine NEGATIVE NEGATIVE Urobilinogen Urine 0.2 0.2-1.0 EU/dL Leukocyte Esterase Urine TRACE NEGATIVE WBC Urine 0-2 NONE SEEN #/HPF RBC Urine NONE SEEN 0-2 #/HPF Bacteria Urine NONE SEEN NONE SEEN #/HPF Mucus Urine NONE SEEN NONE SEEN Squamous Epithelial Cell Urine RARE NONE/RARE #/LPF Crystals Seen? None Seen None Seen #/HPF Amorphous Sediment Urine RARE Cast Seen? NONE SEEN NONE SEEN #/LPF Urine Culture Indicated NO Performing Lab: see note ML - [facility] ECG 12 lead Reviewed date:04/29/2024 07:56:58 AM Interpretation: Performing Lab: Notes/Report: Source Facility: [facility]-[address] [place] [address] [place] [address] Electrocardiograph Report Signed Patient: JOSE ALBERTO SALEEM MR#: [id number] : 1965 Acct:[id number] Age/Sex: 58 / F ADM Date: 04/28/24 Loc: ER Attending Dr: Ordering Physician: Cyrus Woodall M.D. Date of Service: 04/28/24 Procedure(s): ECG 12 lead Accession Number(s): [id number] cc: [facility] Test Date: 2024-04-28 Pat Name: JOSE ALBERTO SALEEM Department: Room: - Gender: Female Conformal Pad Former: : 1965 Requested By: ASHLEY DEJESUS Order Number: [id number] Reading MD: ALIREZA BULLOCK Measurements Intervals [place] Rate: 52 P: 65 IN: 184 QRS: -54 QRSD: 88 T: 2 QT: 470 QTc: 451 Interpretive Statements 1100 Sinus rhythm 2630 Left anterior fascicular block Low voltage across the precordium 9150 abnormal ECG Electronically Signed On 04-29-2024 6:56:41 EDT by ALIREZA BULLOCK Dictated By: Alireza Bullock D.O. Signed By: 04/29/24 0657 DD/ 54 TD/TT: Chuck Boner: [place] [address] Electrocardiograph Report Signed Patient: SHEILA SALEEM MR#: [id number] : 1965 Acct:[id number] Age/Sex: 58 / F ADM Date: 04/28/24 Loc: ER Attending Dr: Ordering Physician: Cyrus Woodall M.D. Date of Service: 04/28/24 Procedure(s): ECG 12 lead Accession Number(s): [id number] cc: [facility] Test Date: 2024-04-28 Pat Name: JOSE ALBERTO MAJANO [facility] Department: 88 Room: - Gender: Female Conformal Pad Former: : 1965 Requested By: ASHLEY DEJESUS Order Number: [id number] Reading MD: ALIREZA BULLOCK Measurements Intervals [place] Rate: 52 P: 65 IN: 184 QRS: -54 QRSD: 88 T: 2 QT: 470 QTc: 451 Interpretive Statements 1100 Sinus rhythm 2630 Left anterior fascicular block Low voltage across t he precordium 9150 abnormal ECG Electronically Yaz d On 04-29-2024 6:56:41 EDT by ALIREZA BULLOCK Dictated By: Alireza Bullock D.O. Signed By: 04/29/24 0657 DD/ 54 TD/TT: Chuck Boner: CT abdomen pelvis w con Reviewed date:04/29/2024 07:56:58 AM Interpretation: Performing Lab: Notes/Report: Source Facility: [place] [address] [place] [address] CT Scan Report Signed Patient: JOSE ALBERTO SALEEM MR#: [id number] : 1965 Acct:[id number] Age/Sex: 58 / F ADM Date: 04/28/24 Loc: ER Attending Dr: Ordering Physician: Cyrus Woodall M.D. Date of Service: 04/29/24 Procedure(s): CT abdomen pelvis w con Accession Number(s): [id number] cc: Ashley Dejesus M.D. [facility] [place] [id number] Patient Name: JOSE ALBERTO SALEEM MRN: [facility]:[id number] date: 1965 Sex: F Assigned Patient Location: ER Current Patient Location: ER Accession/Order Number: [id number] Exam Date: 04/29/2024 00:10 Report Date: 04/29/2024 01:17 At the request of: CYRUS WOODALL Procedure: CT abdomen pelvis w con EXAM: CT abdomen pelvis w con HISTORY: Upper abdominal pain, possible pancreatitis COMPARISON: CT abdomen and pelvis examination dated 02/04/2024. TECHNIQUE: Axial CT images through the abdomen and pelvis were obtained after the intravenous administration of contrast. Coronal and sagittal reformats were obtained. Dose reduction techniques were achieved by using automated exposure control and/or adjustment of mA and/or kV according to patient size and/or use of iterative reconstruction technique. FINDINGS: The visualized portions of the lung bases are clear. Partially imaged are postsurgical changes of the chest with median sternotomy wires in place. There is coronary artery disease. Abdomen: The liver and spleen enhance homogeneously without focal lesion. The patient is a status post a cholecystectomy. There is mild biliary prominence which can be seen status post cholecystectomy. Pancreatic calcifications are suggestive of prior pancreatitis without evidence of acute inflammation. A left adrenal calcification could represent the sequela of prior infection or hemorrhage. There is a right renal cyst. There are subcentimeter hypodensities in the right kidney that are too small to characterize by CT size criteria. The appendix is not seen. There is a prominent amount of stool in the colon without evidence of bowel obstruction. There are postsurgical changes of a gastric bypass. Otherwise, the pancreas, adrenal glands, kidneys, and bowel loops are unremarkable. There is no mesenteric or retroperitoneal lymphadenopathy. Pelvis: The bladder and rectum are unremarkable. There is no iliac or inguinal lymphadenopathy. The uterus is present. The ovaries appear within normal limits by CT. There is trace free fluid in the pelvis. There is moderate atherosclerotic disease. Bone windows show no aggressive osseous lesions. CT/CT abdomen pelvis w con IMPRESSION: 1. No specific etiology identified to explain the patient's abdominal pain. 2. Evidence of prior pancreatitis without evidence of acute inflammation. 3. Status post cholecystectomy and possible appendectomy as the appendix is not seen. 4. Prominent amount of stool in the colon without evidence of bowel obstruction. 5. Status post gastric bypass. 6. Trace free fluid in the pelvis. Electronically authenticated by: Melita RENEE Date: 04/29/2024 01:17 Dictated By: Marck Renee M.D. Signed By: 04/29/24 0120 DD/ 0117 TD/TT: Chuck Boner: [place] [address] CT Scan Report Signed Patient: SHEILA SALEEM MR#: [id number] : 1965 Acct:[id number] Age/Sex: 58 / F ADM Date: 04/28/24 Loc: ER Attending Dr: Ordering Physician: Cyrus Woodall M.D. Date of Service: 04/29/24 Procedure(s): CT abd omen pelvis w con Accession Number(s): [id number] cc: Ashley Dejesus M.D. [place] [address] Patient Name: JOSE ALBERTO SALEEM MRN: [facility]:[id number] date: 1965 Sex: F Assigned Patient Location: ER Current Patient Loca tion: ER Accession/Order Numb er: [id number] Exam Date: 04/29/2024 00:10 Report Date: 04/29/2024 01:17 At the request of: CYRUS WOODALL Procedure: CT abdome n pelvis w con EXAM: CT abdomen pel vis w con HISTORY: Upper abdom inal pain, possible pancreatitis COMPARISON: CT abdom en and pelvis examination dated 02/04/2024. TECHNIQUE: Axial CT images through the abdomen and pelvis were obtained after the intravenous administration of contrast. Coronal and sagittal reformats were obtained. Dose reduction techn iques were achieved by using automated exposure control and/or adjustment of mA and/or kV according to patient size and/or use of iterative reconstruc tion technique. FINDINGS: The visualized porti ons of the lung bases are clear. Partially imaged are postsurgical changes of the chest with median sternotomy wires in place. There is coronary artery disease. Abdomen: The liver a nd spleen enhance homogeneously without focal lesion. The patient is a status post a cholecystectomy. There is mild biliary prominence which can be seen st atus post cholecystectomy. Pancreatic calcifica tions are suggestive of prior pancreatitis without evidence of acute inflammatio n. A left adrenal calcification could represent the sequela of prior infection o r hemorrhage. There is a right renal cyst. There are subcentimeter hypodensities in the right kidney that are too small to characterize by CT s ize criteria. The appendix is not seen. There is a prominent amount of stool in the colon without evidence of bowel obstruction. There are postsurgic al changes of a gastric bypass. Otherwise, the pancreas, adrenal glands, kidn eys, and bowel loops are unremarkable. There is no mesenteric or retroperitoneal lymphadenopathy. Pelvis: The bladder and rectum are unremarkable. There is no iliac or inguinal lymphadenopathy. The uterus is present. The ovaries appear within normal limits by CT. There is trac e free fluid in the pelvis. There is moderate atherosclerotic disease. Bone windows show no aggressive osseous lesions. C T/CT abdomen pelvis w con IMPRESSION: 1. No specific etiol ogy identified to explain the patient's abdominal pain. 2. Evidence of prior pancreatitis without evidence of acute inflammation. 3. Status post cholecystectomy and possible appendectomy as the appendix is not seen. 4. Prominent amount of stool in the colon without evidence of bowel obstruction. 5. Status post gastr ic bypass. 6. Trace free fluid in the pelvis. Electronically authenticated by: Melita RENEE Date: 04/29/2024 01:17 Dictated By: Marck Renee M.D. Signed By: 04/29/24 0120 DD/ 0117 TD/TT: Chuck Boner: AMYLASE Reviewed date:05/01/2024 08:08:30 PM Interpretation: Performing Lab: Notes/Report: [facility] , Amylase 138 25-115 U/L Performing Lab: see note ML - [facility] LB CBC AUTO DIFF Reviewed date:05/01/2024 08:08:30 PM Interpretation: Performing Lab: Notes/Report: [facility] , White Blood Count 5.4 4.0-11.0 10 3/uL Red Blood Count 5.05 4.20-5.40 10 6/uL Hemoglobin 15.2 12.0-16.0 g/dL Hematocrit 46.2 36.0-48.0 % Mean Corpuscular Volume 91.5 81.0-99.0 fL Mean Corpuscular Hemoglobin 30.1 26.7-34.0 pg Mean Corpuscular HGB Conc 32.9 29.9-35.2 g/dL Red Cell Distribution Width 12.2 11.0-15.0 % Platelet Count 182 150-450 10 3/uL Mean Platelet Volume 9.3 9.5-13.5 fL Neutrophils Percent Auto 53.7 43.0-75.0 % Lymphocytes Percent Auto 32.1 20.5-60.0 % Monocytes Percent Auto 10.1 1.7-12.0 % Eosinophils Percent Auto 3.9 0.9-7.0 % Basophils Percent Auto 0.2 0.2-2.0 % Immature Granulocytes Pct Auto 0.0 0.0-0.5 % Neutrophils Absolute Auto 2.9 1.4-6.5 10 3/uL Lymphocytes Absolute Auto 1.7 1.2-3.8 10 3/uL Monocytes Absolute Auto 0.6 0.3-0.8 10 3/uL Eosinophils Absolute Auto 0.2 0.0-0.7 10 3/uL Basophils Absolute Auto 0.0 0.0-0.1 10 3/uL Immature Granulocytes Abs Auto 0.00 0.00-0.03 10 3/uL Performing Lab: see note ML - [facility] LB LIPASE Reviewed date:05/01/2024 08:08:30 PM Interpretation: Performing Lab: Notes/Report: [facility] , Lipase 63.0 16.0-77.0 U/L Performing Lab: see note ML - [facility] LB LIVER PROFILE Reviewed date:05/01/2024 08:08:30 PM Interpretation: Performing Lab: Notes/Report: [facility] , Bilirubin Total 0.4 0.2-1.0 mg/dL Bilirubin Direct 0.1 0.0-0.2 mg/dL Aspartate Amino Transferase 41 15-37 U/L Alanine Aminotransferase 80 14-59 U/L Alkaline Phosphatase 87 46-116 U/L Total Protein 6.7 6.4-8.2 g/dL Albumin Level 3.7 3.4-5.0 g/dL Globulin 3.0 Albumin Globulin Ratio 1.2 Performing Lab: see note ML - [facility] LB US right upper quadrant Reviewed date:05/01/2024 08:08:30 PM Interpretation: Performing Lab: Notes/Report: Source Facility: [place] [address] Ultrasound Report Signed Patient: JOSE ALBERTO SALEEM MR#: [id number] : 1965 Acct:[id number] Age/Sex: 58 / F ADM Date: 05/01/24 Loc: US Attending Dr: Ashley Dejesus M.D. Ordering Physician: Ashley Dejesus M.D. Date of Service: 05/01/24 Procedure(s): US right upper quadrant Accession Number(s): [id number] cc: Ashley Dejesus M.D. [place] [address] Patient Name: JOSE ALBERTO SALEEM MRN: [id number] date: 1965 Sex: F Assigned Patient Location: US Current Patient Location: US Accession/Order Number: [id number] Exam Date: 05/01/2024 07:10 Report Date: 05/01/2024 10:48 At the request of: ASHLEY DEJESUS Procedure: US right upper quadrant EXAMINATION: US right upper quadrant HISTORY: Right upper quadrant pain R10.11 COMPARISON: CT abdomen pelvis 04/29/2024, ultrasound right upper quadrant 01/26/2024 TECHNIQUE: Transabdominal evaluation of the right upper quadrant. FINDINGS: LIVER: Normal size and echotexture. Color Doppler demonstrates patent hepatic veins. PORTAL VEIN: Duplex Doppler demonstrates normal hepatopetal flow pattern with flow velocity averaging 22 cm/s. GALLBLADDER: Cholecystectomy. BILIARY: No abnormal dilation or stones. Common bile duct diameter is within normal limits. PANCREAS: Not well seen. No visible mass, abnormal atrophy, or duct dilation. KIDNEY: Inferior pole 2.7 cm benign appearing cyst. No hydronephrosis. No visible mass or stones. Size: 13.1 x 5.4 x 5.0 cm US/US right upper quadrant IMPRESSION: 1. Slightly limited examination due to shadowing from overlying bowel gas. 2. No acute or suspicious right upper quadrant findings to account for patient's symptoms. Electronically authenticated by: DONNY WADSWORTH Date: 05/01/2024 10:48 Dictated By: Donny Wadsworth M.D. Signed By: 05/01/24 1050 DD/ 1048 TD/TT: Chuck Boner: [place] [address] Ultrasound Report Signed Patient: SHEILA SALEEM MR#: [id number] : 1965 Acct:[id number] Age/Sex: 58 / F ADM Date: 05/01/24 Loc: US Attending Dr: Yoel Dejesus M.D. Ordering Physician: Ashley Dejesus M.D. Date of Service: 05/01/24 Procedure(s): US rig upper quadrant Accession Number(s): [id number] cc: Ashley Dejesus M.D. [place] [address] Patient Name: JOSE ALBERTO SALEEM MRN: [id number] date: 1965 Sex: F Assigned Patient Location: US Current Patient Loca tion: US Accession/Order Numb er: [id number] Exam Date: 05/01/2024 07:10 Report Date: 05/01/2024 10:48 At the request of: ASHLEY DEJESUS Procedure: US right upper quadrant EXAMINATION: US rig t upper quadrant HISTORY: Right upper quadrant pain R10.11 COMPARISON: CT abdom en pelvis 04/29/2024, ultrasound right upper quadrant 01/26/2024 TECHNIQUE: Transabdo cresencio evaluation of the right upper quadrant. FINDINGS: LIVER: Normal size a nd echotexture. Color Doppler demonstrates patent hepatic veins. PORTAL VEIN: Duplex Doppler demonstrates normal hepatopetal flow pattern with flow velocity averag ing 22 cm/s. GALLBLADDER: Cholecystectomy. BILIARY: No abnormal dilation or stones. Common bile duct diameter is within normal limits. PANCREAS: Not well s een. No visible mass, abnormal atrophy, or duct dilation. KIDNEY: Inferior dayana e 2.7 cm benign appearing cyst. No hydronephrosis. No visible mass or ston es. Size: 13.1 x 5.4 x 5.0 cm U S/US right upper quadrant IMPRESSION: 1. Slightly limited examination due to shadowing from overlying bowel gas. 2. No acute or suspi cious right upper quadrant findings to account for patient's symptoms. Electronically authenticated by: DONNY WADSWORTH Date: 05/01/2024 10:48 Dictated By: Donny Wadsworth M.D. Signed By: 05/01/24 1050 DD/ 1048 TD/TT: Chuck Boner: FERRITIN Reviewed date:08/05/2024 06:07:34 PM Interpretation: Performing Lab: Notes/Report: [facility] , Ferritin 42.0 8.0-252.0 ng/mL Performing Lab: see note ML - [facility] LB FOLATE Reviewed date:08/05/2024 06:07:34 PM Interpretation: Performing Lab: Notes/Report: [facility] , Folate 34.40 8.60-58.90 ng/mL Performing Lab: see note ML - [facility] LB IRON AND TIBC Reviewed date:08/05/2024 06:07:34 PM Interpretation: Performing Lab: Notes/Report: [facility] , Iron 73.0 50.0-170.0 ug/dL Total Iron Binding Capacity 348.0 250.0-450.0 ug/dL Percent Iron Saturation 21.0 Performing Lab: see note ML - [facility] LB VITAMIN D 25 OH Reviewed date:08/05/2024 06:07:34 PM Interpretation: Performing Lab: Notes/Report: [facility] , Vitamin D 69.2 <20 ng/mL Vit D deficient 20-<30 ng/mL Vit D insufficient 30-100 ng/mL Vit D sufficient >100 ng/mL Potential Toxicity Performing Lab: see note ML - [facility] LB Vitamin B1 (Thiamine), Blood Reviewed date:08/09/2024 04:01:33 PM Interpretation: Performing Lab: Notes/Report: [facility] B1 (Thiamine), Blood 180.1 66.5-200.0 nmol/L This test was developed and its performance characteristics determined by [facility]. It has not been cleared or approved by the Food and Drug Administration. Performed at: [address] [id number] [employer]: Toni Guidry MD, Phone: [phone] Performing Lab: see note LC - [facility] LB AMYLASE Reviewed date:10/01/2024 03:36:44 PM Interpretation: Performing Lab: Notes/Report: [facility] , Amylase 234 25-115 U/L Performing Lab: see note - [facility] LB CBC AUTO DIFF Reviewed date:10/01/2024 03:36:44 PM Interpretation: Performing Lab: Notes/Report: [facility] , White Blood Count 6.7 4.0-11.0 10 3/uL Red Blood Count 5.04 4.20-5.40 10 6/uL Hemoglobin 15.4 12.0-16.0 g/dL Hematocrit 46.4 36.0-48.0 % Mean Corpuscular Volume 92.1 81.0-99.0 fL Mean Corpuscular Hemoglobin 30.6 26.7-34.0 pg Mean Corpuscular HGB Conc 33.2 29.9-35.2 g/dL Red Cell Distribution Width 12.3 11.0-15.0 % Platelet Count 235 150-450 10 3/uL Mean Platelet Volume 9.5 9.5-13.5 fL Neutrophils Percent Auto 62.7 43.0-75.0 % Lymphocytes Percent Auto 22.8 20.5-60.0 % Monocytes Percent Auto 10.0 1.7-12.0 % Eosinophils Percent Auto 4.0 0.9-7.0 % Basophils Percent Auto 0.4 0.2-2.0 % Immature Granulocytes Pct Auto 0.1 0.0-0.5 % Neutrophils Absolute Auto 4.2 1.4-6.5 10 3/uL Lymphocytes Absolute Auto 1.5 1.2-3.8 10 3/uL Monocytes Absolute Auto 0.7 0.3-0.8 10 3/uL Eosinophils Absolute Auto 0.3 0.0-0.7 10 3/uL Basophils Absolute Auto 0.0 0.0-0.1 10 3/uL Immature Granulocytes Abs Auto 0.01 0.00-0.03 10 3/uL Performing Lab: see note - [facility] LB LIPASE Reviewed date:10/01/2024 03:36:44 PM Interpretation: Performing Lab: Notes/Report: [facility] , Lipase 163.0 16.0-77.0 U/L Performing Lab: see note ML - [facility] LB LIVER PROFILE Reviewed date:10/01/2024 03:36:44 PM Interpretation: Performing Lab: Notes/Report: [facility] , Bilirubin Total 0.3 0.2-1.0 mg/dL Bilirubin Direct 0.1 0.0-0.2 mg/dL Aspartate Amino Transferase 29 15-37 U/L Alanine Aminotransferase 51 14-59 U/L Alkaline Phosphatase 114 46-116 U/L Total Protein 7.3 6.4-8.2 g/dL Albumin Level 3.8 3.4-5.0 g/dL Globulin 3.5 Albumin Globulin Ratio 1.1 Performing Lab: see note ML - [facility] PROF CHEM 8 (BAS METB) Reviewed date:10/01/2024 03:36:44 PM Interpretation: Performing Lab: Notes/Report: [facility] , Sodium 140 136-145 mmol/L Potassium 4.2 3.5-5.1 mmol/L Chloride 103 98-107 mmol/L Carbon Dioxide 30.6 21.0-32.0 mmol/L Anion Gap 10.6 Glucose 110 74-106 mg/dL Blood Urea Nitrogen 25.0 7.0-18.0 mg/dL Creatinine 0.74 0.55-1.02 mg/dL Estimated GFR ( [place] >60 >=60 mL/min/1.73m 2 Estimated GFR (Non- [place] >60 >=60 mL/min/1.73m 2 BUN Creatinine Ratio 33.8 Calcium 10.2 8.5-10.1 mg/dL Performing Lab: see note ML - [facility] LB UA RANDOM W or MICROSCOPIC Reviewed date:10/01/2024 03:36:44 PM Interpretation: Performing Lab: Notes/Report: [facility] , Color Urine LT. YELLOW YELLOW Clarity Urine CLEAR CLEAR Specific [place] Urine 1.010 1.005-1.025 pH Urine 7.0 5.0-9.0 Protein Urine NEGATIVE NEG/TRACE mg/dL Glucose Urine UA NEGATIVE NEGATIVE mg/dL Bilirubin Urine NEGATIVE NEGATIVE Ketones Urine NEGATIVE NEGATIVE mg/dL Blood Urine NEGATIVE NEGATIVE Nitrite Urine NEGATIVE NEGATIVE Urobilinogen Urine 0.2 0.2-1.0 EU/dL Leukocyte Esterase Urine NEGATIVE NEGATIVE WBC Urine 0-2 NONE SEEN #/HPF RBC Urine 0-2 0-2 #/HPF Bacteria Urine NONE SEEN NONE SEEN #/HPF Mucus Urine NONE SEEN NONE SEEN Squamous Epithelial Cell Urine NONE SEEN NONE/RARE #/LPF Crystals Seen? None Seen None Seen #/HPF Cast Seen? NONE SEEN NONE SEEN #/LPF Performing Lab: see note ML - [facility] LB ECG 12 lead Reviewed date:10/05/2024 08:20:23 PM Interpretation: Performing Lab: Notes/Report: Source Facility: [place] [address] Electrocardiograph Report Signed Patient: JOSE ALBERTO SALEEM MR#: [id number] : 1965 Acct:[id number] Age/Sex: 59 / F ADM Date: 09/30/24 Loc: [place] 215-[address]: Ashley Dejesus M.D. Ordering Physician: Cyrus Woodall M.D. Date of Service: 09/30/24 Procedure(s): ECG 12 lead Accession Number(s): [id number] cc: [facility] Test Date: 2024-09-30 Pat Name: JOSE ALBERTO SALEEM Department: Room: - Gender: Female Conformal Pad Former: : 1965 Requested By: ASHLEY DEJESUS Order Number: [id number] Reading MD: ALIREZA BULLOCK Measurements Intervals [place] Rate: 70 P: 63 IN: 164 QRS: -43 QRSD: 84 T: 30 QT: 388 QTc: 409 Interpretive Statements 1100 Sinus rhythm 3114 Cannot rule out anterior myocardial infarction, age undetermined 7200 Abnormal left axis deviation 8102 Low QRS voltage in chest leads 9150 abnormal ECG Electronically Signed On 10-02-2024 16:30:09 EST by ALIREZA BULLOCK Dictated By: Alireza Bullock D.O. Signed By: 10/02/24 1630 DD/ 1738 TD/TT: Chuck Boner: [place] [address] Electrocardiograph Report Signed Patient: SHEILA SALEEM MR#: [id number] : 1965 Acct:[id number] Age/Sex: 59 / F ADM Date: 09/30/24 Loc: [place] 215-[address]: Yoel Dejesus M.D. Ordering Physician: Cyrus Woodall M.D. Date of Service: 09/30/24 Procedure(s): ECG 12 lead Accession Number(s): [id number] cc: [facility] Test Date: 2024-09-30 Pat Name: JOSE ALBERTO MAJANO Pam Department: 88 Room: - Gender: Female Conformal Pad Former: : 1965 Requ ested By: ASHLEY DEJESUS Order Number: [id number] Reading MD: ALIREZA BULLOCK Measurements Intervals [place] Rate: 70 P: 63 IN: 164 QRS: -43 QRSD: 84 T: 30 QT: 388 QTc: 409 Interpretive Statements 1100 Sinus rhythm 3114 Cannot rule out anterior myocardial infarction, age undetermined 7200 Abnormal left a xis deviation 8102 Low QRS voltage in chest leads 9150 abnormal ECG Electronically Yaz d On 10-02-2024 16:30:09 EST by ALIREZA BULLOCK Dictated By: Alireza Bullock D.O. Signed By: 10/02/24 1630 DD/ 1738 TD/TT: Chuck Boner: CT abdomen pelvis w con Reviewed date:10/01/2024 03:36:44 PM Interpretation: Performing Lab: Notes/Report: Source Facility: [place] [address] CT Scan Report Signed Patient: JOSE ALBERTO SALEEM MR#: [id number] : 1965 Acct:[id number] Age/Sex: 59 / F ADM Date: 09/30/24 Loc: ER Attending Dr: Ordering Physician: Cyrus Woodall M.D. Date of Service: 09/30/24 Procedure(s): CT abdomen pelvis w con Accession Number(s): [id number] cc: Ashley Dejesus M.D. [place] [address] Patient Name: JOSE ALBERTO SALEEM MRN: [id number] date: 1965 Sex: F Assigned Patient Location: ER Current Patient Location: ED.MAIN Accession/Order Number: [id number] Exam Date: 09/30/2024 18:06 Report Date: 09/30/2024 18:50 At the request of: CYRUS WOODALL Procedure: CT abdomen pelvis w con EXAM: CT abdomen pelvis w con HISTORY: Pain, elevated amylase . History of pancreatitis. COMPARISON: CT scans 04/29/2024 and earlier. TECHNIQUE: CT abdomen pelvis with contrast. Axial scans with reformatted coronal sagittal images. Individualized radiation dose reduction used for this exam. Contrast: 100 mL Omnipaque 300 FINDINGS: Lower chest: Lung bases clear, no acute process. ABDOMEN: Normal homogeneous liver without focal lesion. Previous close x-ray. Prominent traction x-ray biliary tract unchanged. No abnormality seen in the duct. Normal pancreatic enhancement without mass or cyst or surrounding inflammation. A few calcification seen consistent with residual of previous pancreatitis. Duct is visible but nonspecific mildly dilated. Right adrenal gland, spleen unremarkable. Left adrenal gland unremarkable except for small calcification posteriorly unchanged. No ascites or abdominal fluid or inflammation. No increasing adenopathy. Normal size enhancement aorta and branches, normal venous enhancement. Normal symmetric kidneys without solid mass or hydronephrosis, normal ureters. Benign-appearing cyst right kidney 2.9 cm. No bowel dilatation ileus or obstruction. Moderate to large amount of gas will throughout colon. Previous appendectomy. 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 Pelvis: No mass or adenopathy or free fluid. Large amount of gas stool in the rectum. Fluid in the bladder. No uterine or adnexal pathology. MUSCULOSKELETAL: No suspicious bone lesion. Degenerative changes stable. CT/CT abdomen pelvis w con IMPRESSION: 1. No acute abnormality lower chest abdomen pelvis. No evidence of pancreatitis. 2. Incidental findings including prominent intra and extrahepatic biliary tract mildly prominent pancreatic duct unchanged. Pancreatic calcifications consistent with chronic pancreatitis again noted. Benign-appearing right renal cyst. 3. Large amount of gas will throughout the colon especially rectum which appears distended. Electronically authenticated by: RAMANDEEP POTTER Date: 09/30/2024 18:50 Dictated By: Ramandeep Potter M.D. Signed By: 09/30/241852 DD/ 49 TD/TT: Chuck Boner: [place] [address] CT Scan Report Signed Patient: SHEILA SALEEM MR#: [id number] : 1965 Acct:[id number] Age/Sex: 59 / F ADM Date: 09/30/24 Loc: ER Attending Dr: Ordering Physician: Cyrus Woodall M.D. Date of Service: 09/30/24 Procedure(s): CT abd omen pelvis w con Accession Number(s): [id number] cc: Ashley Dejesus M.D. [address] [address] Patient Name: JOSE ALBERTO SALEEM MRN: [id number] date: 1965 Sex: F Assigned Patient Location: ER Current Patient Loca tion: ED.MAIN Accession/Order Numb er: [id number] Exam Date: 18:06 Report Date: 09/30/2024 18:50 At the request of: CYRUS WOODALL Procedure: CT abdome n pelvis w con EXAM: CT abdomen pel vis w con HISTORY: Pain, eleva hayley amylase . History of pancreatitis. COMPARISON: CT scans 04/29/2024 and earlier. TECHNIQUE: CT abdome n pelvis with contrast. Axial scans with reformatted coronal sagittal tressa ges. Individualized radiation dose reduction used for this exam. Contrast: 100 mL Omnipaque 300 FINDINGS: Lower chest: Lung bases clear, no acute process. ABDOMEN: Normal homogeneous l iver without focal lesion. Previous close x-ray. Prominent traction x-ray bilia ry tract unchanged. No abnormality seen in the duct. Normal pancreatic enhancement without mass or cyst or surrounding inflammation. A few calcification seen consistent with residual of previous pancreatitis. Duct is visible but nonspecific mildly dilated. Right adrenal gland, spleen unremarkable. Left adrenal gland unremarkable except for small calcification posteriorly unchanged. No ascites or abdomi nal fluid or inflammation. No increasing adenopathy. Normal size enhancem ent aorta and branches, normal venous enhancement. Normal symmetric kid neys without solid mass or hydronephrosis, normal ureters. Benign-appearing cys t right kidney 2.9 cm. No bowel dilatation ileus or obstruction. Moderate to large amount of gas will throughout colon. Previous appendectomy. 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 Pelvis: No mass or adenopathy or free fluid. Large amount of gas stool in the rectum. Fluid in the bladder. No uterine or adnexal pathology. MUSCULOSKELETAL: No suspicious bone lesion. Degenerative changes stable. C T/CT abdomen pelvis w con IMPRESSION: 1. No acute abnormal ity lower chest abdomen pelvis. No evidence of pancreatitis. 2. Incidental findin gs including prominent intra and extrahepatic biliary tract mildly prominent pancreatic duct unchanged. Pancreatic calcifications consistent with manager assurance jenae pancreatitis again noted. Benign-appearing right renal cyst. 3. Large amount of g as will throughout the colon especially rectum which appears distended. Electronically authenticated by: RAMANDEEP POTTER Date: 09/30/2024 18:50 Dictated By: Ramandeep Potter M.D. Signed By: 09/30/241852 DD/ 49 TD/TT: Chuck Boner: [place] Reviewed date:10/01/2024 03:36:44 PM Interpretation: Performing Lab: Notes/Report: [facility] , Ammonia 26 11-32 umol/L Performing Lab: see note ML - [facility] LB CBC AUTO DIFF Reviewed date:10/01/2024 03:36:44 PM Interpretation: Performing Lab: Notes/Report: [facility] , White Blood Count 4.8 4.0-11.0 10 3/uL Red Blood Count 4.94 4.20-5.40 10 6/uL Hemoglobin 14.9 12.0-16.0 g/dL Hematocrit 45.6 36.0-48.0 % Mean Corpuscular Volume 92.3 81.0-99.0 fL Mean Corpuscular Hemoglobin 30.2 26.7-34.0 pg Mean Corpuscular HGB Conc 32.7 29.9-35.2 g/dL Red Cell Distribution Width 12.3 11.0-15.0 % Platelet Count 207 150-450 10 3/uL Mean Platelet Volume 9.2 9.5-13.5 fL Neutrophils Percent Auto 51.0 43.0-75.0 % Lymphocytes Percent Auto 32.4 20.5-60.0 % Monocytes Percent Auto 10.2 1.7-12.0 % Eosinophils Percent Auto 5.4 0.9-7.0 % Basophils Percent Auto 0.6 0.2-2.0 % Immature Granulocytes Pct Auto 0.4 0.0-0.5 % Neutrophils Absolute Auto 2.5 1.4-6.5 10 3/uL Lymphocytes Absolute Auto 1.6 1.2-3.8 10 3/uL Monocytes Absolute Auto 0.5 0.3-0.8 10 3/uL Eosinophils Absolute Auto 0.3 0.0-0.7 10 3/uL Basophils Absolute Auto 0.0 0.0-0.1 10 3/uL Immature Granulocytes Abs Auto 0.02 0.00-0.03 10 3/uL Performing Lab: see note ML - [facility] LB LIPASE Reviewed date:10/01/2024 03:36:44 PM Interpretation: Performing Lab: Notes/Report: [facility] , Lipase 57.0 16.0-77.0 U/L Performing Lab: see note [facility] PROF 14(COMP METB) Reviewed date:10/01/2024 03:36:44 PM Interpretation: Performing Lab: Notes/Report: [facility] , Sodium 142 136-145 mmol/L Potassium 4.2 3.5-5.1 mmol/L Chloride 104 98-107 mmol/L Carbon Dioxide 33.7 21.0-32.0 mmol/L Anion Gap 8.5 Glucose 90 74-106 mg/dL Blood Urea Nitrogen 16.0 7.0-18.0 mg/dL Creatinine 0.80 0.55-1.02 mg/dL Estimated GFR ( [place] >60 >=60 mL/min/1.73m 2 Estimated GFR (Non- [place] >60 >=60 mL/min/1.73m 2 BUN Creatinine Ratio 20.0 Calcium 9.5 8.5-10.1 mg/dL Bilirubin Total 0.5 0.2-1.0 mg/dL Aspartate Amino Transferase 26 15-37 U/L Alanine Aminotransferase 48 14-59 U/L Alkaline Phosphatase 113 46-116 U/L Total Protein 7.1 6.4-8.2 g/dL Albumin Level 3.7 3.4-5.0 g/dL Globulin 3.4 Albumin Globulin Ratio 1.1 Performing Lab: see note - [facility] LB Blood Culture 1 Reviewed date:10/06/2024 08:37:09 PM Interpretation: Performing Lab: Notes/Report: [facility] , Blood Culture 1 See Below For Report Blood Culture 1 NG5D NO GROWTH AT 5 DAYS. Performing Lab: see note ML - [facility] LB Blood Culture 2 Reviewed date:10/06/2024 08:37:09 PM Interpretation: Performing Lab: Notes/Report: [facility] , Blood Culture 2 See Below For Report Blood Culture 2 NG5D NO GROWTH AT 5 DAYS. Performing Lab: see note ML - [facility] LB LIPASE Reviewed date:10/05/2024 08:20:23 PM Interpretation: Performing Lab: Notes/Report: [facility] , Lipase 168.0 16.0-77.0 U/L Performing Lab: see note ML - [facility] LB PROF 14(COMP METB) Reviewed date:10/05/2024 08:20:23 PM Interpretation: Performing Lab: Notes/Report: [facility] , Sodium 143 136-145 mmol/L Potassium 3.6 3.5-5.1 mmol/L Chloride 108 98-107 mmol/L Carbon Dioxide 28.7 21.0-32.0 mmol/L Anion Gap 9.9 Glucose 88 74-106 mg/dL Blood Urea Nitrogen 11.0 7.0-18.0 mg/dL Creatinine 0.62 0.55-1.02 mg/dL Estimated GFR ( [place] >60 >=60 mL/min/1.73m 2 Estimated GFR (Non- [place] >60 >=60 mL/min/1.73m 2 BUN Creatinine Ratio 17.7 Calcium 8.9 8.5-10.1 mg/dL Bilirubin Total 0.3 0.2-1.0 mg/dL Aspartate Amino Transferase 21 15-37 U/L Alanine Aminotransferase 32 14-59 U/L Alkaline Phosphatase 94 46-116 U/L Total Protein 6.1 6.4-8.2 g/dL Albumin Level 3.2 3.4-5.0 g/dL Globulin 2.9 Albumin Globulin Ratio 1.1 Performing Lab: see note ML - [facility] LB US right upper quadrant Reviewed date:10/05/2024 08:20:23 PM Interpretation: Performing Lab: Notes/Report: Source Facility: [facility] [place] [address] [place] [address] Ultrasound Report Signed Patient: JOSE ALBERTO SALEEM MR#: [id number] : 1965 Acct:[id number] Age/Sex: 59 / F ADM Date: 09/30/24 Loc: MS 215-[address]: Ashley Dejesus M.D. Ordering Physician: Ashley Dejesus M.D. Date of Service: 10/02/24 Procedure(s): US right upper quadrant Accession Number(s): [id number] cc: Ashley Dejesus M.D. [place] [address] Patient Name: JOSE ALBERTO SALEEM MRN: [id number] date: 1965 Sex: F Assigned Patient Location: MS Current Patient Location: MS Accession/Order Number: [id number] Exam Date: 10/02/2024 07:40 Report Date: 10/02/2024 08:41 At the request of: ASHLEY DEJESUS Procedure: US right upper quadrant EXAM: US right upper quadrant HISTORY: pancreatitis COMPARISON: 05/01/2024 TECHNIQUE: Grayscale, color and Doppler FINDINGS: The liver is normal in size, contour and echotexture. Hepatopedal flow in the main portal vein The visualized pancreas is normal The gallbladder is absent. The right kidney measures 12.2 x 5.8 x 5.0 cm. Echogenic foci, vascular calcifications versus nephrolithiasis. 2.6 cm area of anechoic echogenicity lower pole, simple cyst US/US right upper quadrant IMPRESSION: No acute abnormality Electronically authenticated by: JAE WILSON Date: 10/02/2024 08:41 Dictated By: Jae Wilson M.D. Signed By: 10/02/24 0843 DD/ 08 TD/TT: Chuck Boner: [place] [address] Ultrasound Report Signed Patient: SHEILA SALEEM MR#: [id number] : 1965 Acct:[id number] Age/Sex: 59 / F ADM Date: 09/30/24 Loc: MS 215-[address]: Yoel Dejesus M.D. Ordering Physician: Ashlye Dejesus M.D. Date of Service: 10/02/24 Procedure(s): US rig ht upper quadrant Accession Number(s): [id number] cc: Ashley Dejesus M.D. The [address] [address] Patient Name: JOSE ALBERTO SALEEM MRN: [id number] date: 1965 Sex: F Assigned Patient Location: MS Current Patient Loca tion: MS Accession/Order Numb er: [id number] Exam Date: 10/02/2024 07:40 Report Date: 10/02/2024 08:41 At the request of: ASHLEY DEJESUS Procedure: US right upper quadrant EXAM: US right upper quadrant HISTORY: pancreatitis COMPARISON: 05/01/2024 TECHNIQUE: Grayscale , color and Doppler FINDINGS: The liver is normal in size, contour and echotexture. Hepatopedal flow in the main portal vein The visualized pancr eas is normal The gallbladder is absent. The right kidney jose martin sures 12.2 x 5.8 x 5.0 cm. Echogenic foci, vascular calcifications versu s nephrolithiasis. 2.6 cm area of anechoic echogenicity lower pole, simple cyst U S/US right upper quadrant IMPRESSION: No acute abnormality Electronically authenticated by: JAE WILSON Date: 10/02/2024 08:41 Dictated By: Marshal Wilson M.D. Signed By: 10/02/24 0843 DD/ 0841 TD/TT: Chuck Boner: LIPASE Reviewed date:10/05/2024 08:20:23 PM Interpretation: Performing Lab: Notes/Report: [facility] , Lipase 42.0 16.0-77.0 U/L Performing Lab: see note ML - [facility] LB PROF 14(COMP METB) Reviewed date:10/05/2024 08:20:23 PM Interpretation: Performing Lab: Notes/Report: [facility] , Sodium 141 136-145 mmol/L Potassium 3.6 3.5-5.1 mmol/L Chloride 106 98-107 mmol/L Carbon Dioxide 29.2 21.0-32.0 mmol/L Anion Gap 9.4 Glucose 83 74-106 mg/dL Blood Urea Nitrogen 9.0 7.0-18.0 mg/dL Creatinine 0.66 0.55-1.02 mg/dL Estimated GFR ( [place] >60 >=60 mL/min/1.73m 2 Estimated GFR (Non- [place] >60 >=60 mL/min/1.73m 2 BUN Creatinine Ratio 13.6 Calcium 9.1 8.5-10.1 mg/dL Bilirubin Total 0.4 0.2-1.0 mg/dL Aspartate Amino Transferase 22 15-37 U/L Alanine Aminotransferase 33 14-59 U/L Alkaline Phosphatase 98 46-116 U/L Total Protein 6.4 6.4-8.2 g/dL Albumin Level 3.4 3.4-5.0 g/dL Globulin 3.0 Albumin Globulin Ratio 1.1 Performing Lab: see note ML - [facility] LB LIPASE Reviewed date:10/05/2024 08:20:23 PM Interpretation: Performing Lab: Notes/Report: [facility] , Lipase 75.0 16.0-77.0 U/L Performing Lab: see note ML - [facility] LB LACTATE or LACTIC ACID Reviewed date:01/04/2025 03:44:31 PM Interpretation: Performing Lab: Notes/Report: [facility] , Lactate/Lactic Acid 0.9 0.4-2.0 mmol/L Performing Lab: see note ML - [facility] LB Troponin I High Sensitivity Reviewed date:01/04/2025 03:44:31 PM Interpretation: Performing Lab: Notes/Report: [facility] , Troponin I High Sensitivity 6.1 4.0-51.3 pg/mL CUT-OFF POINTS HAVE BEEN ESTABLISHED BASED ON THE FOURTH UNIVERSAL DEFINITION OF MYOCARDIAL INFARCTION. THE UPPER REFERENCE LIMIT (URL) OF TROPONIN, DEFINED THE 99TH PERCENTILE OF cTnI DISTRIBUTION IN A REFERENCE POPULATION, HAS BEEN CONFIRMED THE DECISION THRESHOLD FOR UT DIAGNOSIS. 99TH PERCENTILE = 51.4 PG/ML NOTE: HIGH-SENSITIVITY TROPONIN ASSAY IS NOT INTENDED TO BE USED IN ISOLATION BUT SHOULD BE INTERPRETED IN CONJUNCTION WITH OTHER DIAGNOSTIC AND CLINICAL INFORMATION. Performing Lab: see note ML - [facility] LB UA Micro, reflex to culture Reviewed date:01/04/2025 03:44:31 PM Interpretation: Performing Lab: Notes/Report: [facility] , Color Urine LT. YELLOW YELLOW Clarity Urine CLEAR CLEAR Specific [place] Urine 1.010 1.005-1.025 pH Urine 7.5 5.0-9.0 Protein Urine NEGATIVE NEG/TRACE mg/dL Glucose Urine UA NEGATIVE NEGATIVE mg/dL Bilirubin Urine NEGATIVE NEGATIVE Ketones Urine NEGATIVE NEGATIVE mg/dL Blood Urine NEGATIVE NEGATIVE Nitrite Urine NEGATIVE NEGATIVE Urobilinogen Urine 0.2 0.2-1.0 EU/dL Leukocyte Esterase Urine SMALL NEGATIVE WBC Urine 0-2 NONE SEEN #/HPF RBC Urine NONE SEEN 0-2 #/HPF Bacteria Urine TRACE NONE SEEN #/HPF Mucus Urine TRACE NONE SEEN Squamous Epithelial Cell Urine MODERATE NONE/RARE #/LPF Crystals Seen? None Seen None Seen #/HPF Cast Seen? NONE SEEN NONE SEEN #/LPF Performing Lab: see note ML - [facility] LB CBC AUTO DIFF Reviewed date:01/04/2025 03:44:31 PM Interpretation: Performing Lab: Notes/Report: [facility] , White Blood Count 6.5 4.0-11.0 10 3/uL Red Blood Count 4.93 4.20-5.40 10 6/uL Hemoglobin 15.1 12.0-16.0 g/dL Hematocrit 44.5 36.0-48.0 % Mean Corpuscular Volume 90.3 81.0-99.0 fL Mean Corpuscular Hemoglobin 30.6 26.7-34.0 pg Mean Corpuscular HGB Conc 33.9 29.9-35.2 g/dL Red Cell Distribution Width 12.5 11.0-15.0 % Platelet Count 214 150-450 10 3/uL Mean Platelet Volume 9.3 9.5-13.5 fL Neutrophils Percent Auto 51.9 43.0-75.0 % Lymphocytes Percent Auto 32.8 20.5-60.0 % Monocytes Percent Auto 10.9 1.7-12.0 % Eosinophils Percent Auto 3.7 0.9-7.0 % Basophils Percent Auto 0.5 0.2-2.0 % Immature Granulocytes Pct Auto 0.2 0.0-0.5 % Neutrophils Absolute Auto 3.4 1.4-6.5 10 3/uL Lymphocytes Absolute Auto 2.1 1.2-3.8 10 3/uL Monocytes Absolute Auto 0.7 0.3-0.8 10 3/uL Eosinophils Absolute Auto 0.2 0.0-0.7 10 3/uL Basophils Absolute Auto 0.0 0.0-0.1 10 3/uL Immature Granulocytes Abs Auto 0.01 0.00-0.03 10 3/uL Performing Lab: see note ML - [facility] LB PROF 14(COMP METB) Reviewed date:01/04/2025 03:44:31 PM Interpretation: Performing Lab: Notes/Report: [facility] , Sodium 141 136-145 mmol/L Potassium 4.3 3.5-5.1 mmol/L Chloride 103 98-107 mmol/L Carbon Dioxide 29.3 21.0-32.0 mmol/L Anion Gap 13.0 Glucose 75 74-106 mg/dL Blood Urea Nitrogen 28.0 7.0-18.0 mg/dL Creatinine 0.66 0.55-1.02 mg/dL Estimated GFR ( [place] >60 >=60 mL/min/1.73m 2 Estimated GFR (Non- [place] >60 >=60 mL/min/1.73m 2 BUN Creatinine Ratio 42.4 Calcium 9.5 8.5-10.1 mg/dL Bilirubin Total 0.2 0.2-1.0 mg/dL Aspartate Amino Transferase 30 15-37 U/L Alanine Aminotransferase 41 14-59 U/L Alkaline Phosphatase 114 46-116 U/L Total Protein 7.0 6.4-8.2 g/dL Albumin Level 3.6 3.4-5.0 g/dL Globulin 3.4 Albumin Globulin Ratio 1.1 Performing Lab: see note ML - [facility] LB LIPASE Reviewed date:01/04/2025 03:44:31 PM Interpretation: Performing Lab: Notes/Report: [facility] , Lipase 569.0 16.0-77.0 U/L Performing Lab: see note ML - [facility] LB PROF 14(COMP METB) Reviewed date:01/04/2025 03:44:31 PM Interpretation: Performing Lab: Notes/Report: [facility] , Sodium 144 136-145 mmol/L Potassium 4.3 3.5-5.1 mmol/L Chloride 106 98-107 mmol/L Carbon Dioxide 33.0 21.0-32.0 mmol/L Anion Gap 9.3 Glucose 94 74-106 mg/dL Blood Urea Nitrogen 21.0 7.0-18.0 mg/dL Creatinine 0.76 0.55-1.02 mg/dL Estimated GFR ( [place] >60 >=60 mL/min/1.73m 2 Estimated GFR (Non- [place] >60 >=60 mL/min/1.73m 2 BUN Creatinine Ratio 27.6 Calcium 9.7 8.5-10.1 mg/dL Bilirubin Total 0.3 0.2-1.0 mg/dL Aspartate Amino Transferase 27 15-37 U/L Alanine Aminotransferase 40 14-59 U/L Alkaline Phosphatase 107 46-116 U/L Total Protein 6.9 6.4-8.2 g/dL Albumin Level 3.7 3.4-5.0 g/dL Globulin 3.2 Albumin Globulin Ratio 1.2 Performing Lab: see note ML - [facility] LB LIPASE Reviewed date:01/04/2025 03:44:31 PM Interpretation: Performing Lab: Notes/Report: [facility] , Lipase 234.0 16.0-77.0 U/L Performing Lab: see note ML - [facility] LB CBC AUTO DIFF Reviewed date:01/04/2025 03:44:31 PM Interpretation: Performing Lab: Notes/Report: [facility] , White Blood Count 5.0 4.0-11.0 10 3/uL Red Blood Count 4.94 4.20-5.40 10 6/uL Hemoglobin 15.1 12.0-16.0 g/dL Hematocrit 45.4 36.0-48.0 % Mean Corpuscular Volume 91.9 81.0-99.0 fL Mean Corpuscular Hemoglobin 30.6 26.7-34.0 pg Mean Corpuscular HGB Conc 33.3 29.9-35.2 g/dL Red Cell Distribution Width 12.5 11.0-15.0 % Platelet Count 190 150-450 10 3/uL Mean Platelet Volume 8.8 9.5-13.5 fL Neutrophils Percent Auto 54.3 43.0-75.0 % Lymphocytes Percent Auto 29.8 20.5-60.0 % Monocytes Percent Auto 10.5 1.7-12.0 % Eosinophils Percent Auto 4.8 0.9-7.0 % Basophils Percent Auto 0.4 0.2-2.0 % Immature Granulocytes Pct Auto 0.2 0.0-0.5 % Neutrophils Absolute Auto 2.7 1.4-6.5 10 3/uL Lymphocytes Absolute Auto 1.5 1.2-3.8 10 3/uL Monocytes Absolute Auto 0.5 0.3-0.8 10 3/uL Eosinophils Absolute Auto 0.2 0.0-0.7 10 3/uL Basophils Absolute Auto 0.0 0.0-0.1 10 3/uL Immature Granulocytes Abs Auto 0.01 0.00-0.03 10 3/uL Performing Lab: see note ML - [facility] LB AMYLASE Reviewed date:01/04/2025 03:44:31 PM Interpretation: Performing Lab: Notes/Report: [facility] , Amylase 306 25-115 U/L RESULTS CALLED TO COLE SYKES LPN at 0929 Performing Lab: see note ML - [facility] LB CBC AUTO DIFF Reviewed date:10/05/2024 08:20:23 PM Interpretation: Performing Lab: Notes/Report: [facility] , White Blood Count 5.4 4.0-11.0 10 3/uL Red Blood Count 4.62 4.20-5.40 10 6/uL Hemoglobin 14.0 12.0-16.0 g/dL Hematocrit 42.3 36.0-48.0 % Mean Corpuscular Volume 91.6 81.0-99.0 fL Mean Corpuscular Hemoglobin 30.3 26.7-34.0 pg Mean Corpuscular HGB Conc 33.1 29.9-35.2 g/dL Red Cell Distribution Width 12.1 11.0-15.0 % Platelet Count 175 150-450 10 3/uL Mean Platelet Volume 9.2 9.5-13.5 fL Neutrophils Percent Auto 53.4 43.0-75.0 % Lymphocytes Percent Auto 32.3 20.5-60.0 % Monocytes Percent Auto 10.2 1.7-12.0 % Eosinophils Percent Auto 3.7 0.9-7.0 % Basophils Percent Auto 0.2 0.2-2.0 % Immature Granulocytes Pct Auto 0.2 0.0-0.5 % Neutrophils Absolute Auto 2.9 1.4-6.5 10 3/uL Lymphocytes Absolute Auto 1.8 1.2-3.8 10 3/uL Monocytes Absolute Auto 0.6 0.3-0.8 10 3/uL Eosinophils Absolute Auto 0.2 0.0-0.7 10 3/uL Basophils Absolute Auto 0.0 0.0-0.1 10 3/uL Immature Granulocytes Abs Auto 0.01 0.00-0.03 10 3/uL Performing Lab: see note ML - [facility] LIPASE Reviewed date:10/01/2024 03:36:44 PM Interpretation: Performing Lab: Notes/Report: [facility] , Lipase 227.0 16.0-77.0 U/L Performing Lab: see note ML - [facility] Prothrombin Time INR Reviewed date:10/01/2024 03:36:44 PM Interpretation: Performing Lab: Notes/Report: [facility] , Prothrombin Time 10.8 9.0-11.6 sec INR 1.02 DESIRED INR: 2.0-3.0 CONDITIONS NOT LISTED BELOW 2.5-3.5 FOR PROSTHETIC HEART VALVE REPLACEMENT 2.5-3.5 RECURRENT THROMBOSIS Performing Lab: see note ML - [facility] PTT Reviewed date:10/01/2024 03:36:44 PM Interpretation: Performing Lab: Notes/Report: [facility] , Partial Thromboplastin Time 30.2 22.3-36.2 sec Performing Lab: see note ML - [facility] MAGNESIUM Reviewed date:10/01/2024 03:36:44 PM Interpretation: Performing Lab: Notes/Report: [facility] , Magnesium 2.3 1.8-2.4 mg/dL Performing Lab: see note ML - [facility] LB LIPID PROFILE Reviewed date:10/01/2024 03:36:44 PM Interpretation: Performing Lab: Notes/Report: [facility] , Triglycerides 95 <=150 mg/dL Cholesterol 219 <=200 mg/dL HDL Cholesterol 61 40-60 mg/dL > or =60 mg/dl - LOW CARDIOVASCULAR RISK <40 mg/dl - HIGH CARDIOVASCULAR RISK LDL Cholesterol Calculated 139.0 <100 mg/dl OPTIMAL 100-129 mg/dl NEAR OR ABOVE OPTIMAL 130-159 mg/dl BORDERLINE HIGH 160-189 mg/dl HIGH >190 mg/dl VERY HIGH VLDL CHOLESTEROL 19.0 Chol HDL Ratio 3.6 3.3 - 4.4 LOW RISK 4.4 - 7.1 AVERAGE RISK 7.1 - 11.0 MODERATE RISK >11.0 HIGH RISK Performing Lab: see note ML - [facility] LB LACTATE or LACTIC ACID Reviewed date:10/01/2024 03:36:44 PM Interpretation: Performing Lab: Notes/Report: [facility] , Lactate/Lactic Acid 1.0 0.4-2.0 mmol/L Performing Lab: see note ML - [facility] LB PROF 14(COMP METB) Reviewed date:09/29/2024 08:35:22 PM Interpretation: Performing Lab: Notes/Report: [facility] , Sodium 143 136-145 mmol/L Potassium 4.2 3.5-5.1 mmol/L Chloride 103 98-107 mmol/L Carbon Dioxide 35.4 21.0-32.0 mmol/L Anion Gap 8.8 Glucose 97 74-106 mg/dL Blood Urea Nitrogen 16.0 7.0-18.0 mg/dL Creatinine 0.73 0.55-1.02 mg/dL Estimated GFR ( [place] >60 >=60 mL/min/1.73m 2 Estimated GFR (Non- Flore[place] >60 >=60 mL/min/1.73m 2 BUN Creatinine Ratio 21.9 Calcium 9.8 8.5-10.1 mg/dL Bilirubin Total 0.5 0.2-1.0 mg/dL Aspartate Amino Transferase 30 15-37 U/L Alanine Aminotransferase 52 14-59 U/L Alkaline Phosphatase 118 46-116 U/L Total Protein 7.5 6.4-8.2 g/dL Albumin Level 4.0 3.4-5.0 g/dL Globulin 3.5 Albumin Globulin Ratio 1.1 Performing Lab: see note ML - [facility] LB LIPID PROFILE Reviewed date:09/29/2024 08:35:22 PM Interpretation: Performing Lab: Notes/Report: [facility] , Triglycerides 205 <=150 mg/dL Cholesterol 232 <=200 mg/dL HDL Cholesterol 56 40-60 mg/dL > or =60 mg/dl - LOW CARDIOVASCULAR RISK <40 mg/dl - HIGH CARDIOVASCULAR RISK LDL Cholesterol Calculated 135.0 <100 mg/dl OPTIMAL 100-129 mg/dl NEAR OR ABOVE OPTIMAL 130-159 mg/dl BORDERLINE HIGH 160-189 mg/dl HIGH >190 mg/dl VERY HIGH VLDL CHOLESTEROL 41.0 Chol HDL Ratio 4.1 3.3 - 4.4 LOW RISK 4.4 - 7.1 AVERAGE RISK 7.1 - 11.0 MODERATE RISK >11.0 HIGH RISK Performing Lab: see note - [facility] LB LIPASE Reviewed date:09/29/2024 08:35:22 PM Interpretation: Performing Lab: Notes/Report: [facility] , Lipase 737.0 16.0-77.0 U/L Performing Lab: see note ML - [facility] LB AMYLASE Reviewed date:09/29/2024 08:35:22 PM Interpretation: Performing Lab: Notes/Report: [facility] , Amylase 295 25-115 U/L Performing Lab: see note - [facility] LB Vitamin B12 Reviewed date:08/06/2024 09:18:02 PM Interpretation: Performing Lab: Notes/Report: [facility] , Vitamin B12 >1999 232-1245 pg/mL Performed at: - [facility] [address] [id number] [employer]: Afshin Martinez PhD, Phone: [phone] Performing Lab: see note - [facility] LB PROF 14(COMP METB) Reviewed date:08/05/2024 03:01:27 PM Interpretation: Performing Lab: Notes/Report: [facility] , Sodium 139 136-145 mmol/L Potassium 3.9 3.5-5.1 mmol/L Chloride 102 98-107 mmol/L Carbon Dioxide 25.7 21.0-32.0 mmol/L Anion Gap 15.2 Glucose 229 74-106 mg/dL Blood Urea Nitrogen 19.0 7.0-18.0 mg/dL Creatinine 0.90 0.55-1.02 mg/dL Estimated GFR ( [place] >60 >=60 mL/min/1.73m 2 Estimated GFR (Non- Flore[place] >60 >=60 mL/min/1.73m 2 BUN Creatinine Ratio 21.1 Calcium 9.8 8.5-10.1 mg/dL Bilirubin Total 0.4 0.2-1.0 mg/dL Aspartate Amino Transferase 43 15-37 U/L Alanine Aminotransferase 93 14-59 U/L Alkaline Phosphatase 99 46-116 U/L Total Protein 7.1 6.4-8.2 g/dL Albumin Level 3.7 3.4-5.0 g/dL Globulin 3.4 Albumin Globulin Ratio 1.1 Performing Lab: see note ML - [facility] LB PHOSPHORUS Reviewed date:08/05/2024 03:01:27 PM Interpretation: Performing Lab: Notes/Report: [facility] , Phosphorus 3.8 2.6-4.7 mg/dL Performing Lab: see note ML - [facility] LB MAGNESIUM Reviewed date:08/05/2024 03:01:27 PM Interpretation: Performing Lab: Notes/Report: [facility] , Magnesium 2.1 1.8-2.4 mg/dL Performing Lab: see note ML - [facility] LB CBC AUTO DIFF Reviewed date:08/05/2024 02:30:38 PM Interpretation: Performing Lab: Notes/Report: [facility] , White Blood Count 4.5 4.0-11.0 10 3/uL Red Blood Count 5.02 4.20-5.40 10 6/uL Hemoglobin 15.3 12.0-16.0 g/dL Hematocrit 46.6 36.0-48.0 % Mean Corpuscular Volume 92.8 81.0-99.0 fL Mean Corpuscular Hemoglobin 30.5 26.7-34.0 pg Mean Corpuscular HGB Conc 32.8 29.9-35.2 g/dL Red Cell Distribution Width 12.3 11.0-15.0 % Platelet Count 189 150-450 10 3/uL Mean Platelet Volume 9.1 9.5-13.5 fL Neutrophils Percent Auto 61.6 43.0-75.0 % Lymphocytes Percent Auto 27.2 20.5-60.0 % Monocytes Percent Auto 6.8 1.7-12.0 % Eosinophils Percent Auto 4.0 0.9-7.0 % Basophils Percent Auto 0.2 0.2-2.0 % Immature Granulocytes Pct Auto 0.2 0.0-0.5 % Neutrophils Absolute Auto 2.8 1.4-6.5 10 3/uL Lymphocytes Absolute Auto 1.2 1.2-3.8 10 3/uL Monocytes Absolute Auto 0.3 0.3-0.8 10 3/uL Eosinophils Absolute Auto 0.2 0.0-0.7 10 3/uL Basophils Absolute Auto 0.0 0.0-0.1 10 3/uL Immature Granulocytes Abs Auto 0.01 0.00-0.03 10 3/uL Performing Lab: see note ML - [facility] LB LIVER PROFILE Reviewed date:04/29/2024 07:56:58 AM Interpretation: Performing Lab: Notes/Report: [facility] , Bilirubin Total 0.4 0.2-1.0 mg/dL Bilirubin Direct 0.1 0.0-0.2 mg/dL Aspartate Amino Transferase 44 15-37 U/L Alanine Aminotransferase 78 14-59 U/L Alkaline Phosphatase 86 46-116 U/L Total Protein 6.9 6.4-8.2 g/dL Albumin Level 3.7 3.4-5.0 g/dL Globulin 3.2 Albumin Globulin Ratio 1.2 Performing Lab: see note - [facility] LB LIPASE Reviewed date:04/29/2024 07:56:58 AM Interpretation: Performing Lab: Notes/Report: [facility] , Lipase 173.0 16.0-77.0 U/L Performing Lab: see note ML - [facility] LB CBC AUTO DIFF Reviewed date:04/29/2024 07:56:58 AM Interpretation: Performing Lab: Notes/Report: [facility] , White Blood Count 5.7 4.0-11.0 10 3/uL Red Blood Count 4.87 4.20-5.40 10 6/uL Hemoglobin 14.7 12.0-16.0 g/dL Hematocrit 43.9 36.0-48.0 % Mean Corpuscular Volume 90.1 81.0-99.0 fL Mean Corpuscular Hemoglobin 30.2 26.7-34.0 pg Mean Corpuscular HGB Conc 33.5 29.9-35.2 g/dL Red Cell Distribution Width 12.2 11.0-15.0 % Platelet Count 202 150-450 10 3/uL Mean Platelet Volume 9.6 9.5-13.5 fL Neutrophils Percent Auto 44.8 43.0-75.0 % Lymphocytes Percent Auto 40.3 20.5-60.0 % Monocytes Percent Auto 11.2 1.7-12.0 % Eosinophils Percent Auto 3.1 0.9-7.0 % Basophils Percent Auto 0.3 0.2-2.0 % Immature Granulocytes Pct Auto 0.3 0.0-0.5 % Neutrophils Absolute Auto 2.6 1.4-6.5 10 3/uL Lymphocytes Absolute Auto 2.3 1.2-3.8 10 3/uL Monocytes Absolute Auto 0.6 0.3-0.8 10 3/uL Eosinophils Absolute Auto 0.2 0.0-0.7 10 3/uL Basophils Absolute Auto 0.0 0.0-0.1 10 3/uL Immature Granulocytes Abs Auto 0.02 0.00-0.03 10 3/uL Performing Lab: see note ML - [facility] AMYLASE Reviewed date:04/29/2024 07:56:58 AM Interpretation: Performing Lab: Notes/Report: [facility] , Amylase 175 25-115 U/L Performing Lab: see note - [facility] Prothrombin Time INR Reviewed date:01/04/2025 03:44:31 PM Interpretation: Performing Lab: Notes/Report: [facility] , Prothrombin Time 10.9 9.0-11.6 sec INR 1.03 DESIRED INR: 2.0-3.0 CONDITIONS NOT LISTED BELOW 2.5-3.5 FOR PROSTHETIC HEART VALVE REPLACEMENT 2.5-3.5 RECURRENT THROMBOSIS Performing Lab: see note - [facility] PTT Reviewed date:01/04/2025 03:44:31 PM Interpretation: Performing Lab: Notes/Report: [facility] , Partial Thromboplastin Time 31.4 22.3-36.2 sec Performing Lab: see note - [facility] LB PROF 14(COMP METB) Reviewed date:01/04/2025 03:44:31 PM Interpretation: Performing Lab: Notes/Report: [facility] , Sodium 144 136-145 mmol/L Potassium 4.2 3.5-5.1 mmol/L Chloride 107 98-107 mmol/L Carbon Dioxide 30.4 21.0-32.0 mmol/L Anion Gap 10.8 Glucose 91 74-106 mg/dL Blood Urea Nitrogen 15.0 7.0-18.0 mg/dL Creatinine 0.72 0.55-1.02 mg/dL Estimated GFR ( [place] >60 >=60 mL/min/1.73m 2 Estimated GFR (Non- [place] >60 >=60 mL/min/1.73m 2 BUN Creatinine Ratio 20.8 Calcium 8.9 8.5-10.1 mg/dL Bilirubin Total 0.4 0.2-1.0 mg/dL Aspartate Amino Transferase 23 15-37 U/L Alanine Aminotransferase 35 14-59 U/L Alkaline Phosphatase 90 46-116 U/L Total Protein 6.0 6.4-8.2 g/dL Albumin Level 3.1 3.4-5.0 g/dL Globulin 2.9 Albumin Globulin Ratio 1.1 Performing Lab: see note ML - [facility] LB LIPID PROFILE Reviewed date:01/04/2025 03:44:31 PM Interpretation: Performing Lab: Notes/Report: [facility] , Triglycerides 124 <=150 mg/dL Cholesterol 189 <=200 mg/dL HDL Cholesterol 54 40-60 mg/dL > or =60 mg/dl - LOW CARDIOVASCULAR RISK <40 mg/dl - HIGH CARDIOVASCULAR RISK LDL Cholesterol Calculated 110.2 <100 mg/dl OPTIMAL 100-129 mg/dl NEAR OR ABOVE OPTIMAL 130-159 mg/dl BORDERLINE HIGH 160-189 mg/dl HIGH >190 mg/dl VERY HIGH VLDL CHOLESTEROL 24.8 Chol HDL Ratio 3.5 3.3 - 4.4 LOW RISK 4.4 - 7.1 AVERAGE RISK 7.1 - 11.0 MODERATE RISK >11.0 HIGH RISK Performing Lab: see note ML - [facility] LB LIPASE Reviewed date:01/04/2025 03:44:31 PM Interpretation: Performing Lab: Notes/Report: [facility] , Lipase 41.0 16.0-77.0 U/L Performing Lab: see note ML - [facility] LB CBC AUTO DIFF Reviewed date:01/04/2025 03:44:31 PM Interpretation: Performing Lab: Notes/Report: [facility] , White Blood Count 5.0 4.0-11.0 10 3/uL Red Blood Count 4.55 4.20-5.40 10 6/uL Hemoglobin 13.7 12.0-16.0 g/dL Hematocrit 42.0 36.0-48.0 % Mean Corpuscular Volume 92.3 81.0-99.0 fL Mean Corpuscular Hemoglobin 30.1 26.7-34.0 pg Mean Corpuscular HGB Conc 32.6 29.9-35.2 g/dL Red Cell Distribution Width 12.5 11.0-15.0 % Platelet Count 173 150-450 10 3/uL Mean Platelet Volume 9.2 9.5-13.5 fL Neutrophils Percent Auto 55.7 43.0-75.0 % Lymphocytes Percent Auto 28.2 20.5-60.0 % Monocytes Percent Auto 11.1 1.7-12.0 % Eosinophils Percent Auto 4.6 0.9-7.0 % Basophils Percent Auto 0.2 0.2-2.0 % Immature Granulocytes Pct Auto 0.2 0.0-0.5 % Neutrophils Absolute Auto 2.8 1.4-6.5 10 3/uL Lymphocytes Absolute Auto 1.4 1.2-3.8 10 3/uL Monocytes Absolute Auto 0.6 0.3-0.8 10 3/uL Eosinophils Absolute Auto 0.2 0.0-0.7 10 3/uL Basophils Absolute Auto 0.0 0.0-0.1 10 3/uL Immature Granulocytes Abs Auto 0.01 0.00-0.03 10 3/uL Performing Lab: see note ML - [facility] AMYLASE Reviewed date:01/04/2025 03:44:31 PM Interpretation: Performing Lab: Notes/Report: [facility] , Amylase 136 25-115 U/L Performing Lab: see note ML - [facility] LB AMMONIA Reviewed date:01/04/2025 03:44:31 PM Interpretation: Performing Lab: Notes/Report: [facility] , Ammonia 24 11-32 umol/L Performing Lab: see note ML - [facility] LB Reason For Referral Diagnosis 1 Chronic pancreatitis (K86.1) Referral Organization [facility] Referring Provider First Name Deacon Referring Provider Last Name Anjelica Referring Provider Speciality [facility] wilfrid Referred Provider Chauncey Cooper Referred Provider Specialty Gastroentero logy Referral Priority Routine Medications Medication SIG (Take, Route, Frequency, Duration) Notes Start Date End Date Status Nystatin 528806 UNIT/GM 1 application Externally Twice a day for 30 days 11/12/2023 Active Pancrelipase (Phm-Lnwk-Pyjv) 35684-63358 UNIT 1 capsule Orally ac and hs 09/25/2024 Active Cefdinir 300 MG 2 capsule Orally onc e a day for 10 days 02/18/2025 Active Hyoscyamine Sulfate 0.125 MG 2 tablet as needed Orally every 4 hrs PRN abd pain 04/28/2024 Active Nitroglycerin 0.[address] 1 tablet unde r the tongue if needed every 5 minutes for nimco... (REFER TO PRESCRIPTION NOTES). Sublingual for 30 Days Active Fluticasone Propionate 50 MCG/ACT INSTILL 1 SPRAY IN EACH NOSTIRL TWICE A DAY. for 90 Active hydroCHLOROthiazide 12.5 MG Oral for 90 Days Active Estradiol Active Citalopram Hydrobromide 40 MG 1 tablet O rally Once a day for 30 days Active Tamsulosin HCl 0.4 MG 1 capsule Orally B ID for 90 days Active Clopidogrel Bisulfate 75 MG 1 tablet Ora lly Once a day 08/27/2024 Active traMADol HCl 50 MG 1 tablet as needed Orally 4 times a day for 7 days 01/24/2024 Active Aspirin Low Dose 81 MG Oral for 90 Days Active PreserVision AREDS A ctive Cevimeline HCl 30 MG 1 capsule Orally qi d for 90 days 02/12/2024 Active RABEprazole Sodium 20 MG TAKE 1 TABLET T WICE A DAY for 90 days Active hydroCHLOROthiazide 25 MG 1 tablet in th e morning Orally Once a day for 30 day(s) 02/18/2025 Active Immunizations Vaccine Route Administration Date Status Comme nts Flu, -historic- Novel H1N1-0 9, preservative free Unknown 07/29/2009 Administered Flu, Flucelvax (01005) 2 yrs +, single-dose syringe (5888-0890) Unknown 07/26/2017 Administered Flu, Fluzone (34945) 6 mos+, single-dose syringe/vial (9689-4092) Unknown 06/05/2023 Administered Flu, Unspecified Unknown 06/15/2014 Administered Pneumococcal (Pneumovax 23) Unknown 05/09/2017 Administ ered SARS-COV-2 (COVID 19 Pfizer 30mcg/0.3mL) Unknown 01/08/2021 Administered SARS-COV-2 (COVID 19 Pfizer 30mcg/0.3mL) Unknown 01/08/2021 Administered Social History Tobacco Use: Social History Observation Description Date Details (start date - stop date) Never Smoker NA - NA Tobacco Use/Smoking Question Answer Notes Patient is a nonsmoker Alcohol Screen (Audit-C) Question Answer Notes Did you have a drink contain ing alcohol in the past year? Yes How often did you have 6 or more drinks on one occasion in the past year? Never (0 point) How many drinks did you have on a typical day when you were drinking in the past year? 1 or 2 drinks (0 point) How often did you have a dri nk containing alcohol in the past year? Monthly (2 points) Points 2 Interpretation Negative AUDIT-C (Standard) Question Answer Notes Did you have a drink containing alcohol in the p ast year? 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 Problem Snoring (90708523) Snoring (R06.83) Active conf irmed Problem Right upper quadrant pain (815280480) Right upper quadrant pain (R10.11) Active confirmed Problem Abdominal pain (31025147) Abdominal pain (R10.9) Active confirmed Problem Fatigue (83344737) Fatigue (R53.83) Active conf irmed Problem Hyperlipidemia (54316113) Hyperlipidemia (E78.5) Active confirmed Problem Hyperlipidaemia (30662049) Hyperlipemia (E78.5) Active confirmed Problem Hypertension (48826812) Hypertension (I10) Active confirmed Problem Gastroesophageal reflux disease (495552137) GERD (gastroesophageal reflux disease) (K21.9) Active confirmed Problem Coronary artery disease (44333176) CAD (coronary artery disease) (I25.10) Active confirmed Problem Ischemic cardiomyopathy (152457081) Cardiomyopathy, ischemic (I25.5) Active confirmed Problem Depression (868103738) Depression (F32.9) Active confirmed Problem Essential hypertension (80980104) Benign essential HTN (I10) Active confirmed Problem Hypertriglyceridemia (258072504) Hypertriglyceridemia (E78.1) Active confirmed Problem Arthralgia (70461538) Arthralgia (M25.50) Active confirmed Problem Chronic pancreatitis (302933412) Chronic pancreatitis (K86.1) Active confirmed Problem Essential hypertension (53265652) BP (high blood pressure) (I10) Active confirmed Problem hypercholesterolemia (disorder) (11486246) Hypercholesteremia (E78.00) Active confirmed Problem Hypercholesterolemia (91721834) Hypercholesterolemia (E78.00) Active confirmed Problem Type II diabetes mellitus without complication (353291621) Controlled type 2 diabetes mellitus (E11.9) Active confirmed Problem Acute UTI (urinary tract infection) (042159856) Acute UTI (urinary tract infection) (N39.0) Active confirmed Problem Old myocardial infarction (1442201) Acute myocardial infarct greater than 3 months ago (I25.2) Active confirmed Problem Acute pancreatitis (645535266) Acute pancreatitis (K85.90) Active confirmed Vital Signs Temperature 97.6 degrees Fahrenheit 02/18/2025 Blood pressure diastolic 82 mm Hg 02/18/2025 Height 63 in 02/18/2025 Blood pressure systolic 140 mm Hg 02/18/2025 Weight 179 lbs 02/18/2025 BMI 31.7 kg/m2 02/18/2025 Procedures Procedure Date Ordered Date Performed Result Body Sit e Sleep study - Diagnostic Polysonogram 01/08/2025 N/A Encounters Encounter Location Date Provider Diagnosis [facility] [address] [place] [address] 11/10/2024 [facility] [address] [place] [address] 11/27/2024 Deacon Dejesus Acute pancreatitis K 85.90 [facility] [address] [place] [address] 01/02/2025 Deacon estefani [facility] [address] [place] [address] 02/09/2025 Deacon [facility] [address] [place] [address] 08/05/2024 Deacon [facility] [address] [place] [address] 08/20/2024 Deacon [facility] [address] [place] [address] 09/25/2024 Deacon [facility] [address] [place] [address] 09/29/2024 Deacon [facility] [address] [place] [facility] [place] [address] 10/03/2024 Deacon Hoy [facility] [address] [place] [facility] [place] [address] 10/07/2024 Deacon Hoy Chronic pancreatitis K86.1 [facility] [address] [place] [facility] [place] [place] [address] 04/29/2024 Deacon Hoy [facility] [address] [place] [facility] [place] [address] 05/01/2024 Deacon Hoy [facility] [address] [place] [facility] [address] 06/17/2024 Deacon Hoy Unspecified abdomina l pain R10.9 [facility] [address] [place] [facility] [place] [address] 04/28/2024 Deacon Hoy Right upper quadrant pain R10.11 [facility] [address] [place] [facility] [place] [address] 08/27/2024 Deacon Hoy CAD (coronary artery disease) I25.10 ; Hypertriglyceridemia E78.1 and Hypertension I10 [facility] [address] [place] [facility] [place] [address] 10/07/2024 Deacon Hoy Chronic pancreatitis K86.1 [place] [address] [place] [facility] [address] 01/08/2025 Deacon Hoy Fatigue R53.83 ; Sno ring R06.83 and Chronic pancreatitis K86.1 [facility] [address] [place] [facility] [place] [address] 02/18/2025 Deacon Hoy Acute bronchitis, un specified organism J20.9 Assessments Encounter Date Diagnosis (ICD Code) Assessment Notes Treatment Notes Treatment Clinical Notes Section Notes 04/28/2024 Right upper quadrant pain (ICD-10 - R10.11) 08/27/2024 CAD (coronary artery disease) (ICD-10 - I25.10) 08/27/2024 Hypertriglyceridemia (ICD-10 - E78.1) 10/07/2024 Chronic pancreatitis (ICD-10 - K86.1) referral to Dr Ross 01/08/2025 Fatigue (ICD-10 - R53.83) 01/08/2025 Snoring (ICD-10 - R06.83) 02/18/2025 Acute bronchitis, unspecified organism (ICD-10 - J20.9) Rest and drink more liquids, especially water. You may use a humidifier or vaporizer to help keep the drainage moist. Ohsd-tyr-uehcpux Nasal Saline may help the stuffy and runny nose. Use Ibuprofen and or Tylenol as needed for fever, chills, body aches or pain. Children 5 years old should not be given ymrr-nwg-oayufmh cough and cold medications such as guaifenesin and dextromethorphan. If you're over age 5, you may try xplo-osg-mijbgoj cold medications such as guaifenesin and dextromethorphan, [...] to the emergency room or call 911 06/17/2024 Unspecified abdomina l pain (ICD-10 - R10.9) 10/07/2024 Chronic pancreatitis (ICD-10 - K86.1) 11/27/2024 Acute pancreatitis (ICD-10 - K85.90) 01/08/2025 Chronic pancreatitis (ICD-10 - K86.1) 08/27/2024 Hypertension (ICD-10 - I10) Plan Of Treatment Pending Test Test Name Order Date CMP (COMPLETE METABOLIC PANEL) 4 CMP (COMPLETE METABOLIC PANEL) 4 HEMOGLOBIN A1C (GLYCO) 11/12/2023 IRON, TOTAL 11/12/2023 LIPID PANEL (CHOL/TRIG/HDL/LDL) 11/12/19 24 CBC WITH DIFF 11/12/2023 CBC WITH DIFF 01/31/2024 UA (REFLEX URINALYSIS TO CULTURE) 2023 VITAMIN D, 25 LEVEL (TOTAL) 11/12/2023 US Transvaginal Pelvic 03/08/2023 Urinalysis Microscopic 04/28/2024 Urinalysis Microscopic 11/12/2023 Sleep study - Diagnostic Polysonogram ACUTE HEPATITIS PANEL 11/13/2023 Insulin Level 11/12/2023 COMPREHENSIVE METABOLIC PROFILE WITH GFR 11/27/2024 CMP - Comprehensive Metabolic Panel 11/2023 CBC W/AUTO DIFF 01/31/2024 CBC W/AUTO DIFF 11/27/2024 AMYLASE 11/27/2024 AMYLASE 08/27/2024 CULTURE URINE 11/12/2023 CULTURE URINE 04/28/2024 LIPASE 08/27/2024 LIPASE 11/27/2024 LIPID PROFILE 08/27/2024 LIVER PROFILE 11/13/2023 PROF 14(COMP METB) 08/27/2024 US ABD 04/28/2024 THYROID PANEL (T4/TSH/FREE T3) US abdomen complete 01/24/2024 Insurance Providers Payer Name Payer Address Payer Phone Subscriber Number Group Number Insured Name Patient Relationship to Insured Coverage Start Date Coverage End Date [employer] PPO PLUS LOCAL PLAN [address] [place] [phone] [id number] Jose Alberto Saleem Self - patient is the insured 3 Medical (General) History Medical History History ICD Code Idiopathic acute pancreatitis without in fection or necrosis K85.00 Carpal tunnel syndrome on left G56.02 Arthralgia M25.50 Arm paresthesia, right R20.2 Kidney stones N20.0 Controlled type 2 diabetes mellitus E11. 9 Cardiomyopathy, ischemic I25.5 Orthostatic hypotension I95.1 Hypertriglyceridemia E78.1 Hypercholesteremia E78.00 GERD (gastroesophageal reflux disease) K 21.9 Acute myocardial infarct greater than 3 months ago I25.2 Diverticulitis K57.92 Hypertension I10 CAD (coronary artery disease) I25.10 Surgical History Surgery Date(Month/Year) endoscope 03/06/24 Cardiac Cath, Left 2013 Peripheral Vascular Angioplasty Coronary Artery Disease- S/P Bypass- 4 V essels- [facility] Cholecystectomy Decompression of median nerv e and release and transverse carpal ligament- Right, Dr. Mckeon 07/19/2022 Cysto, Dr. Stoll 04/24/2018 & 018 Gastric Bypass 01/29/2018 Sinus Surgery, Dr. Messer 12/2017 Hysteroscopy and D&C 06/18/2023 Hospitalization History Reason Date(Month/Year) Pancreatitis 2024 Pancratitis 2023
--- OUTSIDE RECORDS SUMMARY | 2025-03-04 20:17 | XMS_ITS | Encounter Summary ---
Author Organization [employer] Address [id number] [address] [place] [address] Care Team Providers Care Operations And Maintenance Specialist Name Role Phone Ziggy Dejesus MD Primary Care Provider [phone] Reason for Visit * Reason Comments Med Refill Encounter Details Date Type Department Care Team (Late st Contact Info) Description 01/31/2024 Refill [facility] [address] [place] [phone] Antonia Banda, PA-C [address] [facility] [address] [place] [address] Xerostomia Social History Tobacco Use Types Packs/Day Years Used Date Smoking Tobacco: Never Smokeless Tobacco: Never Alcohol Use Standard Drinks/Week Comments No 0 (1 standard drink = 0.6 oz pur e alcohol) PHQ-2 Answer Date Recorded Total Score 0 10/13/2020 Childcare Answer Date Recorded Childcare Unknown 03/04/2019 Employment Answer Date Recorded Employment Unknown 03/04/2019 Hunger Screening Answer Date Recorded Within the past 12 months we worried whether our food would run out before we got money to buy more. Never True 10/04/2022 Within the past 12 months th e food we bought just didn't last and we didn't have money to get more. Never True 10/04/2022 Purpose - Life Answer Date Recorded Purpose and direction in life Unknown Comments No Sex and Gender Information Value Date Recorded Sex Assigned at Not on file Legal Sex Female 11:31 AM EDT Gender Identity Not on file Sexual Orientation Not on file documented as of this encounter Plan of Treatment Upcoming Encounters Date Type Department Care Team (Late st Contact Info) Description 06/24/2025 3:15 PM EDT Office Visit [facility] [address] [facility] [address] [place] [phone] Antonia Banda, PA-C [address] [facility] [address] [place] [address] documented as of this encounter Visit Diagnoses Diagnosis Xerostomia Disturbance of salivary secretion documented in this encounter Additional Health Concerns Assessment Noted Time PHQ-9 Depression Total Score: 0 10/13/19 21 3:43 PM EST documented as of this encounter Care Teams Operations And Maintenance Specialist Relationship Specialty Start Date End Date Ziggy Dejesus MD PCP - General 02/22/17 documented as of this encounter
--- OUTSIDE RECORDS SUMMARY | 2025-03-04 20:17 | XMS_ITS | Encounter Summary ---
Author Organization [facility] Address [address] [place] [address] Phone Care Team Providers Care Instructor Of Nursing Name Role Phone Ziggy Dejesus MD Primary Care Provider [phone] Anita Hammonds RN Unavailable Unavailable Encounter Details Date Type Department Care Team (Late st Contact Info) Description 08/20/[address] [facility] [address] [place] [address] Scanning, Generic Provider Social History Tobacco Use Types Packs/Day Years Used Date Smoking Tobacco: Never Smokeless Tobacco: Never Alcohol Use Standard Drinks/Week Comments Never 0 (1 standard drink = 0.6 oz pur e alcohol) Comments Unknown Sex and Gender Information Value Date Recorded Sex Assigned at Not on file Legal Sex Female 5:40 AM EST Gender Identity Not on file Sexual Orientation Not on file COVID-19 Exposure Response Date Recorded In the last 10 days, have yo u been in contact with someone who was confirmed or suspected to have Coronavirus/COVID-19? No / Unsure 08/13/2024 11:44 AM EST documented as of this encounter Plan of Treatment Upcoming Encounters Date Type Department Care Team (Late st Contact Info) Description 03/17/2025 2:40 PM EDT Office Visit [facility] [address] [place] [address] Celso Garibay DO [address] [facility] [address] [place] [address] 08/18/2025 11:20 AM EST Office Visit [facility] [address] [place] [phone] Celso Garibay, [address] [facility] [address] [place] [address] documented as of this encounter Visit Diagnoses Not on filedocumented in this encounter Care Teams Instructor Of Nursing Relationship Specialty Start Date End Date Ziggy Dejesus MD [address] [place] [address] PCP - General 08/17/21 Anita Hammonds, multimedia assistantAccount Collector 08/22/24 10/03/24 documented as of this encounter
--- OUTSIDE RECORDS SUMMARY | 2025-03-04 20:17 | XMS_ITS | Clinical Summary ---
Author Organization [facility] Address [address] [place] [address] Care Team Providers Care Legger Press Operator Name Role Phone Ziggy Dejesus MD Primary Care Provider [phone] Allergies Active Allergy Reactions Criticality Noted Date Comments Latex Anaphylaxis,Shortnes s of Breath High 03/16/2006 Fluvastatin Sodium 03/14/2006 PT TOLERATES CRESTOR Penicillins Hives 03/14/2006 Phenazopyridine Hcl 03/14/2006 Sulfa (Sulfonamide Antibiotics) Hives 03/14/2006 Fenofibrate Micronized Intolerance 03/22/2009 elevated liver enzymes Simvastatin 03/14/2006 PT TOLERATES CRESTOR Medications multivitamins(MULT IPLE VITAMINS TAB)Indications:Ot her and unspecified hyperlipidemia ONE DAILY 0 0 1 Active lansoprazole(PREVA BOLIVAR 30 MG CAP)Indications:Ot her and unspecified hyperlipidemia Take one(1) tablet two(2) times daily. 0 0 1 Active vitamin b complex(VITAMIN B COMPLEX CAP)Indications:Ot her and unspecified hyperlipidemia ONE DAILY 0 0 1 Active potassium chloride(K-DUR 10 MEQ TAB)Indications:Ot her and unspecified hyperlipidemia Take one(1) tablet two(2) times daily. 0 0 1 Active COENZYME Q10 200 MG CAPIndications:Oth er and unspecified hyperlipidemia ONE DAILY 0 0 7 Active cetirizine hcl(ZYRTEC 10 MG TAB)Indications:Ot her and unspecified hyperlipidemia Take one(1) tablet daily. 0 0 1 Active pravastatin sodium(PRAVACHOL 40 MG TAB)Indications:Ot her and unspecified hyperlipidemia ONE DAILY 0 0 8 Active metoprolol succinate(TOPROL XL 50 MG 24 HR TAB)Indications:Ot her and unspecified hyperlipidemia ONE DAILY 0 0 6 Active montelukast sodium(SINGULAIR 10 MG TAB)Indications:Ot her and unspecified hyperlipidemia ONE DAILY 0 0 1 Active acetaminophen(TYLE NOL EXTRA STRENGTH 500 MG TAB)Indications:Ot her and unspecified hyperlipidemia as necessary 0 0 1 Active ibuprofen(ADVIL 200 MG TAB)Indications:Ot her and unspecified hyperlipidemia as necessary 0 0 1 Active furosemide(LASIX 40 MG TAB)Indications:Ot her and unspecified hyperlipidemia as necessary 0 0 1 Active propoxyphene/aceta minophen(DARVOCET- N 100 100 MG-650 MG TAB)Indications:Ot her and unspecified hyperlipidemia every six hours as needed for ovarian cysts 0 0 9 Active COENZYME Q10 200 MG CAP ONE DAILY 90 3 9 Active orlistat(XENICAL 120 MG CAP) Take one(1) tablet three times daily. 90 days supply 9 Active fenofibric acid(TRILIPIX 135 MG CAP)Indications:Ot her and unspecified hyperlipidemia one daily 90 4 9 Active omega-3 acid ethyl esters(LOVAZA 1 GRAM CAP) 2 tablets twice a day 90 days supply 4 0 Active omega-3 acid ethyl esters(LOVAZA 1 GRAM CAP)Indications:Ot her and unspecified hyperlipidemia 2tabs twice daily 0 0 0 Active ASPIRIN 325 MG TABIndications:Oth er and unspecified hyperlipidemia ONE DAILY 90 3 0 Active lisinopril(PRINIVI L 10 MG TAB)Indications:Ot her and unspecified hyperlipidemia 1/2 tab daily 0 0 0 Active HYDROCHLOROTHIAZID E 25 MG TAB ONE DAILY 90 3 0 Active niacin(NIASPAN 500 MG TAB) ONE DAILY 90 3 0 Active EXENATIDE 10 MCG/0.04 ML PER DOSE SUB-Q PEN INJECTOR twice a day 3 months 4 0 Active needles, insulin disposable(BD INSULIN PEN NEEDLE UF MINI 31 X 12/14 ) twice a day 3 months 4 0 Active Active Problems Problem Noted Date Diagnosed Date Other and unspecified hyperlipidemia 03/22/2009 Family History Medical History Relation Comments Coronary Artery Disease Father Coronary Artery Disease Mother 3 and 4 vessel CABG twice Coronary Artery Disease Paternal Uncle 1 Coronary Artery Disease Paternal Uncle 2 Relation Status Comments Father Mother Paternal Uncle 1 Paternal Uncle 2 Social History Tobacco Use Types Packs/Day Years Used Date Smoking Tobacco: Never Alcohol Use Standard Drinks/Week Comments Yes 0 (1 standard drink = 0.6 oz pur e alcohol) special occassions Comments No Sex and Gender Information Value Date Recorded Sex Assigned at Not on file Legal Sex Female 9:48 AM EST Gender Identity Not on file Sexual Orientation Not on file 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 Not on file Not on file Last Filed Vital Signs Vital Sign Reading Time Taken Comments Blood Pressure 106/70 03/24/2010 11:56 AM EDT (from Extended Vitals) Pulse 68 03/24/2010 11:56 AM EDT (from Extended Vitals) Temperature 37 C (98.6 F) 03/23/2006 11:00 AM EDT Respiratory Rate 20 03/23/2006 11:0 0 AM EDT Oxygen Saturation 99% 03/23/2006 11: 00 AM EDT Inhaled Oxygen Concentration - - Weight 90.7 kg (200 lb) 03/24/2010 11:5 3 AM EDT Height 160 cm (5' 3 ) 03/24/2010 11:53 AM EDT Body Mass Index 35.43 03/24/2010 11:53 AM EDT Plan of Treatment Health Maintenance Due Date Last Done Comments Anxiety Screening 1982 Depression Screening 1982 HIV Screening 1982 Hepatitis C Screening 1982 DTaP,Tdap,Td Vaccine (1 - Tdap) 1983 Cervical Cancer Screening [address] Colonography 2009 Cologuard (FIT-DNA) 2009 Colonoscopy 2009 Colorectal Cancer Screening 2009 Fecal Occult Blood 2009 Sigmoidoscopy 2009 Diabetes Screening 03/22/2012 03/22/2009, 0 03/22/2009, 03/23/2006, Additional history exists Lipid Screening 03/22/2014 03/22/2009, 03/02, 03/15/2006 Pneumococcal Vaccine: 50+ (1 of 1 - PCV) 2014 Shingrix Vaccine (1 of 2) 2014 Covid-19 Vaccine (1 - 2023-2 5 season) 2024 Influenza Vaccine (Season Ended) 2025 RSV Vaccine (1 - 1-dose 75+ series) 2039 Procedures Procedure Name Priority Date/Time Associated Diagnosis Comments HEMOGLOBIN A1C Routine 03/22/2009 12:34 PM EDT Hyperlipidemia Nec/Nos Impaired Fasting Glucose LIPID PANEL, FASTING Routine 03/22/2009 12:34 PM EDT Hyperlipidemia Nec/Nos from Last 3 Months or Most Recently Relevant to Health Maintenance Results * (ABNORMAL) LIPID PANEL BASIC (03/22/2009 12:34 PM EDT) Triglyceride 1338(H) 30 - 149 mg/dL [facility] Comment: Patient may be at risk for acute pancreatitis due to marked hypertriglyceridemia. Cholesterol, Total 296(H) 100 - 199 mg/dL [facility] HDL Cholesterol 25(L) >55 mg/dL [facility] VLDL Cholesterol Unable to calculate due to increased Triglycerides . See LDL-Chol, Direct. 6 - 40 mg/dL [facility] LDL Cholesterol, Calculated Unable to calculate due to increased Triglycerides . See LDL-Chol, Direct. 60 - 129 mg/dL [facility] Fasting Time [address] [facility] TC:HDL Ratio 11.84(H) 1.00 - 5.00 [facility] LDL:HDL Ratio Unable to calculate 0.50 - 3.55 [facility] Non HDL Cholesterol 271(H) 90 - 159 mg/dL [facility] Blood specimen (specimen) BLOOD SPECIMEN / Unknown 03/22/2009 12:34 PM EDT us Lupe Park MD LABORATORY Final Resul t [facility] [address] [place] [address] * HGB A1C (03/22/2009 12:34 PM EDT) Hemoglobin A1C 5.6 4.0 - 6.0 % [facility] Blood specimen (specimen) BLOOD SPECIMEN / Unknown 03/22/2009 12:34 PM EDT us Lupe Park MD LABORATORY Final Resul t [facility] [address] [place] [address] from Last 3 Months or Most Recently Relevant to Health Maintenance Insurance [employer] Care Teams Legger Press Operator Relationship Specialty Start Date End Date Ziggy Dejesus MD [address] [place] [address] PCP - General 03/15/06
--- OUTSIDE RECORDS SUMMARY | 2025-03-04 20:17 | XMS_ITS | Clinical Summary ---
Author Organization [facility] Address [address] [place] [address] Care Team Providers Care Pmo Project Manager Name Role Phone Ziggy Dejesus MD Primary Care Provider [phone] Allergies Active Allergy Reactions Criticality Noted Date Comments Baclofen Other,Shortness of breath High 07/10/2017 bradypnea Fenofibrate GI intolerance 03/22/2009 Other reaction(s): (Louis) 08/08/2011 Other reaction(s): Intolerance elevated liver enzymes elevated liver enzymes Fluvastatin 03/14/2006 PT TOLERATES CRESTOR Latex Anaphylaxis,Shortne ss of breath High 03/16/2006 Levofloxacin 07/10/2017 Other Reaction(s): Other (See Comments), thrush thrush Penicillins Hives,Rash Low 03/14/2006 Phenazopyridine GI intolerance 03/14/2006 Sulfa Antibiotics Hives,Shortness of breath High 03/14/2006 Other Reaction(s): Other (See Comments) Sulfamethoxazole-Trimeth oprim Hives Medium 08/19/2019 Tobramycin Rash Low 10/04/2022 Trimethoprim 11/01/2022 Other reaction(s): Hives Medications RABEprazole (Aciphex) 20 MG EC tablet Take 20 mg by mouth in the morning and 20 mg before bedtime. Do not crush, chew, or split.. Active citalopram (CeleXA) 20 MG tablet Take 20 mg by mouth Active aspirin 81 MG EC tablet Take 81 mg by mouth in the morning. Active tamsulosin (Flomax) 0.4 MG 24 hr capsule Take 0.4 mg by mouth in the morning. Active cevimeline (Evoxac) 30 MG capsule Take 30 mg by mouth in the morning and 30 mg in the evening and 30 mg before bedtime. Active calcium 200 MG tablet Take by mouth Active atorvastatin (Lipitor) 20 MG tablet Take 20 mg by mouth in the morning. Active hydroCHLOROthia zide (HYDRODiuril) 12.5 MG tablet Take 12.5 mg by mouth in the morning. / tab. Active Active Problems No known active problems Family History Medical History Relation Name Comments Heart disease Father Heart disease Mother Relation Name Status Comments Father Alive Mother Alive Social History Tobacco Use Types Packs/Day Years Used Date Smoking Tobacco: Never Smokeless Tobacco: Never Tobacco Cessation:Counseling Given: No Alcohol Use Standard Drinks/Week Comments Not Currently 0 (1 standard drink = 0.6 oz pur e alcohol) Comments Unknown Sex and Gender Information Value Date Recorded Sex Assigned at Female 09/12/2023 3:27 PM EST Legal Sex Female 7:08 PM EDT Gender Identity Female 09/12/2023 3:27 PM EST Sexual Orientation Not on file Last Filed Vital Signs Vital Sign Reading Time Taken Comments Blood Pressure 125/72 07/25/2018 12:00 PM EDT Pulse - - Temperature - - Respiratory Rate - - Oxygen Saturation - - Inhaled Oxygen Concentration - - Weight 63.5 kg (140 lb) 09/13/2023 11:28 AM EST Height 160 cm (5' 3 ) 09/13/2023 11:28 AM EST Body Mass Index 24.8 09/13/2023 11:28 AM EST Plan of Treatment Health Maintenance Due Date Last Done Comments CT Colonography 1964 Colonoscopy 1964 Colorectal Cancer Screening 1964 FIT-DNA 1964 FIT 1964 FOBT 1964 Sigmoidoscopy 1964 Mammogram 08/15/2024 08/15/2023, 07/02, 10/28/2020, Additional history exists Pap Smear 02/07/2025 02/07/2022, 02/07/2022, 08/01 Cervical Cancer Screening 02/07/2027 HPV/Cotest 02/07/2027 02/07/2022, 02/07/2022, 08/01 Influenza Vaccine Completed 06/05/2024, , 06/16/2022, Additional history exists Insurance BS Care Teams Pmo Project Manager Relationship Specialty Start Date End Date Ziggy Dejesus MD [address] [place] [address] PCP - General Family Medicine 02/13/25
--- OUTSIDE RECORDS SUMMARY | 2025-03-04 20:17 | XMS_ITS | Encounter Summary ---
Author Organization [email or web address] Address [id number] [address] [place] [address] Care Team Providers Care Armed Security Guard Name Role Phone Ziggy Dejesus MD Primary Care Provider [phone] Encounter Details Date Type Department Care Team (Late st Contact Info) Description 02/08/2024 Telephone [facility] [address] [place] [address] Devaughn Messer MD PhD [address] [address] RETIRED 04/30/2024 [place] [address] Social History Tobacco Use Types Packs/Day Years [...] on file documented as of this encounter Miscellaneous Notes * Telephone Encounter - Lydia Edwards - 02/08/2024 11:26 AM EDT Pt needs a 90 day refill sent to the mail order pharmacy ,please. Previous prescription was NOT sent to the mail order and was refused by patient.Pt would like prescriptions to be placed with the [facility] (listed in chart) MAIL ORDER, Please. documented in this encounter Plan of Treatment Upcoming Encounters Date Type Department Care Team (Late st Contact Info) Description 06/24/2025 3:15 PM EDT Office Visit [facility] [address] [place] [phone] Antonia Banda, PA-C [address] [facility] [address] [place] [address] documented as of this encounter Visit Diagnoses Not on filedocumented in this encounter Additional Health Concerns Assessment Noted Time PHQ-9 Depression Total Score: 0 10/13/19 21 3:43 PM EST documented as of this encounter Care Teams Armed Security Guard Relationship Specialty Start Date End Date Ziggy Dejesus MD PCP - General 02/22/17 documented as of this encounter
--- OUTSIDE RECORDS SUMMARY | 2025-03-04 20:17 | XMS_ITS | Encounter Summary ---
Author Organization [facility] Address [address] [place] [address] Phone Care Team Providers Care Gum Maker Name Role Phone Ziggy Dejesus MD Primary Care Provider [phone] Anita Hammonds RN Unavailable Unavailable Encounter Details Date Type Department Care Team (Late st Contact Info) Description 10/09/2022 Orders Only [facility] [address] [place] [address] Conversion, Onbase Social History Tobacco Use Types Packs/Day Years Used Date Smoking Tobacco: Never Assessed Comments Unknown Sex and Gender Information Value Date Recorded Sex Assigned at Not on file Legal Sex Female 5:40 AM EST Gender Identity Not on file Sexual Orientation Not on file documented as of this encounter Plan of Treatment Upcoming Encounters Date Type Department Care Team (Late st Contact Info) Description 03/17/2025 2:40 PM EDT Office Visit [address] [phone] Celso Garibay DO [address] [place] [address] [address] [address] 08/18/2025 11:20 AM EST Office Visit [address] [phone] Celso Garibay DO [address] [place] [address] [address], [address] [address] Scheduled Orders Name Type Priority Associated Diagnoses Orde r Schedule OUTSIDE LAB SCAN Lab Ordered: 10/09/2022 documented as of this encounter Visit Diagnoses Not on filedocumented in this encounter Care Teams Gum Maker Relationship Specialty Start Date End Date Ziggy Dejesus MD [address] [place] [address] PCP - General 08/17/21 Anita Hammonds, security shift supervisorBarber Stylist 08/22/24 10/03/24 documented as of this encounter
--- OUTSIDE RECORDS SUMMARY | 2025-03-04 20:17 | XMS_ITS | Encounter Summary ---
Author Organization [facility] Address [address] [place] [address] Phone Care Team Providers Care Mobile Service Rv Technician Name Role Phone iZggy Dejesus MD Primary Care Provider [phone] Anita Hammonds RN Unavailable Unavailable Encounter Details Date Type Department Care Team (Late st Contact Info) Description 08/18/2024 Scanned Document [facility] [address] [place] [address] Scanning, Generic Provider Social History [...] Description 03/17/2025 2:40 PM EDT Office Visit [facility] [address] [facility] [address] [place] [phone] Celso Garibay DO [address] [facility] [address] [place], [place] [phone] 08/18/2025 11:20 AM EST Office Visit [facility] [address] [facility] [address] [place] [phone] Celso Garibay, [address] [place] [address] documented as of this encounter Procedures Procedure Name Priority Date/Time Associated Diagnosis Comments OUTSIDE IMAGING SCAN 08/18/2024 documented in this encounter Results * OUTSIDE IMAGING SCAN (08/18/2024) Anatomical Region Laterality Modality Other Narrative 08/18/2024 Ordered by an unspecified provider. us Generic Provider Scanning OUTSIDE SCAN Final Result documented in this encounter Visit Diagnoses Not on filedocumented in this encounter Care Teams Mobile Service Rv Technician Relationship Specialty Start Date End Date Ziggy Dejesus MD [address] [facility] [place] [address] PCP - General 08/17/21 Anita Hammonds, certified legal investigatorMutuel Department Manager 08/22/24 10/03/24 documented as of this encounter
--- OUTSIDE RECORDS SUMMARY | 2025-03-04 20:17 | XMS_ITS | Clinical Summary ---
Author Organization [facility] Address [id number] [address] [place] [address] Care Team Providers Care News Videotape Editor Name Role Phone Ziggy Dejesus MD Primary Care Provider [phone] Allergies Active Allergy Reactions Criticality Noted Date Comments Baclofen Other (See Comments) 07/10/2017 bradypnea Fenofibrate Micronized 03/22/2009 Other reaction(s): Intolerance elevated liver enzymes Latex Anaphylaxis High 09/06/2017 Levofloxacin Other (See Comments) 07/10/2017 thrush Penicillins Hives 03/14/2006 Phenazopyridine Hcl Nausea And Vomiting 006 Rosuvastatin Other (See Comments) 07/10/2017 Elevated liver enzymes, pt cannot take this in addition with fenofibrate Sulfa (Sulfonamide Antibiotics) Hives 03/14/2006 Tobramycin Rash Low 10/04/2022 Medications aspirin 81 mg Take 1 tablet (81 mg total) by mouth in the morning. Active RABEprazole (ACIPHEX) 20 mg EC tablet Take 1 tablet (20 mg total) by mouth in the morning and 1 tablet (20 mg total) before bedtime. Active sod spbja-kqjfbx-eynfv z bottle (NEILMED SINUS RINSE COMPLETE) packet with rinse device nasal solutionIndication s:S/P nasal septoplasty Administer 1 packet into each nostril daily. 60 packet 09/13/20 17 Active Additional Information Patient not taking.Reported on 07/19/2022 tamsulosin (FLOMAX) 0.4 mg capsule Take 1 capsule (0.4 mg total) by mouth in the morning. Active NYSTOP powder 04/19/20 18 Active calcium carbonate (OS-ARLEY) 600 mg (1,500 mg) tablet Take 500 mg by mouth 3 (three) times a day with meals. Active ltyzkdhj-vgnl-WY-c alcium &mins (THERAGRAN-M) 9 mg iron-400 mcg tablet Take 1 tablet by mouth in the morning. Active hydroCHLOROthiazid e (HYDRODIURIL) 12.5 mg tablet Take 0.5 tablets (6.25 mg total) by mouth daily. On hold Active docusate sodium (COLACE) 100 mg capsule Take 1 capsule (100 mg total) by mouth in the morning and 1 capsule (100 mg total) before bedtime. Active cholecalciferol, vitamin D3, (VITAMIN D3) 5,000 units capsule Take 2 capsules (10,000 Units total) by mouth 4 (four) times a week. Active acetaminophen (TYLENOL EXTRA STRENGTH) 500 mg tablet Take 2 tablets (1,000 mg total) by mouth every 6 (six) hours as needed for pain. Active ondansetron ODT (ZOFRAN ODT) 4 mg disintegrating tablet Dissolve 1 tablet (4 mg total) on tongue every 8 (eight) hours as needed for nausea for up to 10 doses. 10 tablet 10/04/19 23 Active Additional Information Patient not taking.Reported on 03/06/2024 cevimeline (EVOXAC) 30 mg capsuleIndications :Xerostomia Take 1 capsule (30 mg total) by mouth 3 (three) times a day. 360 capsule 3 01/17/20 24 Active Additional Information Patient taking differently:30 mg oral 3 times daily,Indications: xerostomia secondary to Sjogren's syndrome, Reported on 02/29/2024 fluticasone propionate (FLONASE) 50 mcg/actuation nasal spray Administer 2 sprays into each nostril in the morning. 16 g 11 02/14/20 24 Active vit C,O-Ai-godsy-lutei n-zeaxan (PRESERVISION AREDS-2) 250-90-40-1 mg capsule Take 2 tablets by mouth in the morning and at bedtime. Active atorvastatin (LIPITOR) 20 mg tabletIndications: hypertriglyceridem ia Take 1 tablet (20 mg total) by mouth in the morning. Indications: high amount of triglyceride in the blood. Active citalopram (CeleXA) 20 mg tabletIndications: anxiety with depression Take 1 tablet (20 mg total) by mouth in the morning. Indications: anxiousness associated with depression. Active Active Problems Problem Noted Date Diagnosed Date Dry nose 03/20/2022 Xerostomia 09/13/2021 Other chronic allergic conjunctivitis 09/13/2021 S/P nasal septoplasty 09/13/2017 Clotting disorder 07/10/2017 Diabetes 07/10/2017 GERD (gastroesophageal reflux disease) 7 Heart disease 07/10/2017 Hypertension 07/10/2017 Kidney disease 07/10/2017 Acute myocardial infarction 07/10/2017 Encounters Date Type Department Care Team Description 01/17/2025 11:07 AM EDT - 01/17/2025 11:59 PM EDT Hospital Encounter [facility] [address] [place] [phone] Idiopathic acute pancreatitis without necrosis or infection (Primary Dx) Discharge Disposition: Home from Last 3 Months Immunizations Immunization Administration Dates Next Due COVID-19, mRNA, LNP-S, PF, 30mcg/0.3mL Dose 12/30 Family History Medical History Relation Name Comments COPD Father Coronary artery disease Father Peripheral vascular disease Father Anemia Mother Mom Endometrial cancer Mother Mom Heart disease Mother Mom Hypertension Mother Mom Breast cancer Neg Hx Relation Name Status Comments Father Mother Mom Alive Social History Tobacco Use Types Packs/Day Years Used Date Smoking Tobacco: Never Smokeless Tobacco: Never Tobacco Cessation:Counseling Given: Not Answered Alcohol Use Standard Drinks/Week Comments No 0 [...] got money to buy more. Never True 02/29/2024 Within the past 12 months th e food we bought just didn't last and we didn't have money to get more. Never True 02/29/2024 Purpose - Life Answer Date Recorded Purpose and direction in life Unknown Comments No Sex and Gender Information Value Date Recorded Sex Assigned at Not on file Legal Sex Female 11:31 AM EDT Gender Identity Not on file Sexual Orientation Not on file Last Filed Vital Signs Vital Sign Reading Time Taken Comments Blood Pressure 110/73 03/06/2024 12:01 PM EDT Pulse 66 03/06/2024 12:01 PM EDT Temperature 36.1 C (97 F) 03/06/2024 12:01 PM EDT Respiratory Rate 15 03/06/2024 12:01 PM EDT Oxygen Saturation 94% 03/06/2024 12:01 PM EDT Inhaled Oxygen Concentration - - Weight 75.8 kg (167 lb) 02/29/2024 11:15 AM EDT Height 160 cm (5' 3 ) 02/29/2024 11:15 AM EDT Body Mass Index 29.58 02/29/2024 11:15 AM EDT Plan of Treatment Upcoming Encounters Date Type Department Care Team (Late st Contact Info) Description 06/24/2025 3:15 PM EDT Office Visit [facility] [address] [place] [address] Antonia Banda, PA-C [address] [facility] [address] [place] [address] Health Maintenance Due Date Last Done Comments Depression Screening 1976 DTaP,Tdap and Td Vaccines (1 - Tdap) 1983 COVID-19 Vaccine (4 - 2023-2 5 season) 2024 08/01/2021, 01/29/2021, 01/08/2021 Pap Smear 02/07/2025 02/07/2022, 05, 08/19/2019 Adult BMI Screening 02/28/2025 02/29/2024 Tobacco Screening 03/06/2025 03/06/2024 Influenza Vaccine 06/01/2025 06/05/2024, , 06/16/2022, Additional history exists Zoster (Shingles) Vaccine Completed 08/21/2022, Medical Devices Implanted Type Area Knot Borer Device Identifier Shelf Expiration Date Model / Serial / Lot Tissue Alloderm Nonmesh 2x4cm - Sna - [id number] Implanted:Qty : 1 on 09/06/2017 by Devaughn Messer MD PhD at [facility] Graft Nose [employer] 03/20/2018 [id number] / NA / [id number] Lens Iol Ultrasert 17.0d - [id number] - [id number] Implanted:Qty : 1 on 11/14/2018 by Nisha Stoll MD at [facility] Lens Left: Eye [employer] 09/30/2020 [id number] 17.0 / [id number] / NA Sinus Implant Propel Mini - Sna - [id number] Implanted:Qty : 1 on 01/03/2018 by Devaughn Messer MD PhD at [facility] Other Implant Nose [employer] 03/06/2018 [id number] / NA / [id number] Sinus Implant Propel - Sna - [id number] Implanted:Qty : 2 on 01/03/2018 by Devaughn Messer MD PhD at [facility] Stent Bilatera l: Nose [employer] 02/15/2018 [id number] / NA / [id number] Restor Implanted:Qty : 1 on 11/05/2018 by Nisha Stoll MD at [facility] Right: Eye [employer] 11/29/2019 [id number] / [id number] / NA Procedures Procedure Name Priority Date/Time Associated Diagnosis Comments PANCREATIC ELASTASE, F Routine 01/17/2025 10:19 AM EDT Idiopathic acute pancreatitis without necrosis or infection from Last 3 Months Results * (ABNORMAL) Pancreatic Elastase, F (01/17/2025 10:19 AM EDT) Pancreatic Elastase, F 174(L) >200 (Normal) mcg/g 01/21/2025 3:47 PM EDT [facility] Comment: NOTE Interpretation: Borderline (100-200 mcg/g); Consistent with slight to moderate pancreatic insufficiency Test Performed by: [facility] [address] [place] [address] Parks [employer] Re[employer] Manager: Andra Flores Ph.D.; CLIA# [id number] Blood Feces / Unknown 01/17/2025 1 0:19 AM EDT 01/17/2025 2:48 PM EDT us Chauncey Cooper MD BODY FLUIDS AND STOOLS ORDERABLE S Final Result [address] [place] [address] from Last 3 Months Insurance ANTHEM Care Teams News Videotape Editor Relationship Specialty Start Date End Date Ziggy Dejesus MD PCP - General 02/22/17
--- OUTSIDE RECORDS SUMMARY | 2025-03-04 20:17 | XMS_ITS | Encounter Summary ---
Author Organization [facility] Address [address] [place] [address] Phone Care Team Providers Care Hourly Shift Manager Name Role Phone Ziggy Dejesus MD Primary Care Provider [phone] Cindy Stoll COMMISSIONER CONSERVATION OF RESOURCES-MANAGING MEMBER Unavailable [phone] Anita Hammonds RN Unavailable Unavailable Encounter Details Date Type Department Care Team (Late st Contact Info) Description 09/28/2021 Orders Only [facility] [address] [place] [address] Conversion, Onbase Social History Tobacco Use Types [...] Description 03/17/2025 2:40 PM EDT Office Visit [address] [phone] Celso Garibay DO [address] [facility] [address] [place] [address] 08/18/2025 11:20 AM EST Office Visit [address] [place] [address] Celso Garibay DO [address] [facility] [address] [place] [address] Scheduled Orders Name Type Priority Associated Diagnoses Orde r Schedule OUTSIDE LAB SCAN Lab Ordered: 09/28/2021 documented as of this encounter Visit Diagnoses Not on filedocumented in this encounter Care Teams Hourly Shift Manager Relationship Specialty Start Date End Date Ziggy Dejesus MD [address] [place] [address] PCP - General 08/17/21 Cindy Stoll, COMMISSIONER CON[employer] OF [employer]MANAGING MEMBER [address] [facility] [address] [place] [address] PCP - Karen LANEO PCP 01/29/22 06/30/22 Anita Hammonds, carpet tile layerManaging Attorney 08/22/24 10/03/24 documented as of this encounter
--- OUTSIDE RECORDS SUMMARY | 2025-03-04 20:17 | XMS_ITS | Encounter Summary ---
Author Organization [facility] Address [address] [place] [address] Phone Care Team Providers Care Arson Investigator Name Role Phone Ziggy Dejesus MD Primary Care Provider [phone] Anita Hammonds RN Unavailable Unavailable Encounter Details Date Type Department Care Team (Late st Contact Info) Description 08/21/2024 Scanned Document [facility] [address] [place] [address] Scanning, Generic Provider Social History [...] Description 03/17/2025 2:40 PM EDT Office Visit [facility] [address] [facility] [address] [place] [phone] Celso Garibay DO [address] [facility] [address] [place], [place] [phone] 08/18/2025 11:20 AM EST Office Visit [facility] [address] [facility] [address] [place] [phone] Celso Garibay, [address] [facility] [address] [place] [address] documented as of this encounter Visit Diagnoses Not on filedocumented in this encounter Care Teams Arson Investigator Relationship Specialty Start Date End Date Ziggy Dejesus MD [address] [facility] [place] [address] PCP - General 08/17/21 Anita Hammonds, iv technicianGolf Course Starter 08/22/24 10/03/24 documented as of this encounter
--- OUTSIDE RECORDS SUMMARY | 2025-03-04 20:18 | XMS_ITS | Encounter Summary ---
Author Organization [employer] Address [id number] [address] [place] [address] Care Team Providers Care Senior Payroll Manager Name Role Phone Ziggy Dejesus MD Primary Care Provider [phone] Reason for Visit * Reason Comments Med Refill Encounter Details Date Type Department Care Team (Late st Contact Info) Description 09/26/2023 Refill [facility] [address] [place] [phone] Antonia Banda, PA-C [address] [facility] [address] [place] [address] Xerostomia Social History Tobacco Use Types Packs/Day [...] [facility] [address] [facility] [address] [place] [phone] Antonia Banda, PA-C [address] [facility] [address] [place] [address] documented as of this encounter Visit Diagnoses Diagnosis Xerostomia Disturbance of salivary secretion documented in this encounter Additional Health Concerns Assessment Noted Time PHQ-9 Depression Total Score: 0 10/13/19 21 3:43 PM EST documented as of this encounter Care Teams Senior Payroll Manager Relationship Specialty Start Date End Date Ziggy Dejesus MD PCP - General 02/22/17 documented as of this encounter
--- OUTSIDE RECORDS SUMMARY | 2025-03-04 20:18 | XMS_ITS | Encounter Summary ---
Author Organization [facility] Address [id number] [address] [place] [address] Care Team Providers Care Cad Cam Programmer Name Role Phone Ziggy Dejesus MD Primary Care Provider [phone] Reason for Visit * Reason Comments Med Refill Encounter Details Date Type Department Care Team (Late st Contact Info) Description 01/10/2018 Refill [facility] [address] [place] [address] [place] [phone] Antonia Banda, PA-C [address] [facility] [address] [place] [address] S/P nasal septoplasty Social History Tobacco Use Types Packs/Day Years Used Date Smoking Tobacco: Never Smokeless Tobacco: Never Alcohol Use Standard Drinks/Week Comments No 0 (1 standard drink = 0.6 oz pur e alcohol) Comments No Sex and Gender Information Value Date Recorded Sex Assigned at Not on file Legal Sex Female 11:31 AM EDT Gender Identity Not on file Sexual Orientation Not on file documented as of this encounter Miscellaneous Notes * Telephone Encounter - ЕЛЕНА Vivas - 01/15/2018 10:01 AM EDT Patient called to get a refill of bactroban. ЕЛЕНА Vivas 01/15/18 1001 documented in this encounter Plan of Treatment Upcoming Encounters Date Type Department Care Team (Late st Contact Info) Description 06/24/2025 3:15 PM EDT Office Visit [facility] [address] [facility] [address] [place] [phone] Antonia Banda, PASergC [address] [facility] [address] [place] [address] documented as of this encounter Visit Diagnoses Diagnosis S/P nasal septoplasty Other postprocedural status documented in this encounter Care Teams Cad Cam Programmer Relationship Specialty Start Date End Date Ziggy Dejesus MD PCP - General 02/22/17 documented as of this encounter
--- OUTSIDE RECORDS SUMMARY | 2025-03-04 20:18 | XMS_ITS | Encounter Summary ---
Author Organization [employer] Address [id number] [address] [place] [address] Care Team Providers Care Provider Enrollment Specialist Name Role Phone Ziggy Dejesus MD Primary Care Provider [phone] Reason for Visit * Reason Onset Date Comments Med Refill 09/26/2017 Encounter Details Date Type Department Care Team (Late Contact Info) Description 09/26/2017 Refill [facility] [address] [place] [address] [place] [phone] Alisia Bazzi RMA Social History Tobacco Use Types Packs/Day Years [...] Encounters Date Type Department Care Team (Late Contact Info) Description 06/24/2025 3:15 PM EDT Office Visit [facility] [address] [place] [address] Antonia Banda, PASergC [address] [address] documented as of this encounter Visit Diagnoses Not on filedocumented in this encounter Care Teams Provider Enrollment Specialist Relationship Specialty Start Date End Date Ziggy Dejesus MD PCP - General 02/22/17 documented as of this encounter
--- OUTSIDE RECORDS SUMMARY | 2025-03-04 20:18 | XMS_ITS | Referral Summary ---
Author Organization [facility] Address [address] [place] [address] Care Team Providers Care Outsole Molder Name Role Phone Ziggy Dejesus MD Primary Care Provider [phone] Encounters Date Type Department Care Team Description 02/18/2025 Telephone [facility] Gastroenterology [address] [place] [address] [place] [phone] Anika Sharma MD 02/18/2025 Telephone [facility] Gastroenterology [address] [place] [address] [place] [phone] Anika Sharma MD 02/11/2025 Telephone [facility] Endoscopy [address] [place] [phone] Gisela Arellano RN 01/30/2025 9:00 AM EDT - 01/30/2025 11:59 PM EDT Hospital Encounter [facility] Nuclear Medicine Imaging [address] [place] [phone] Idiopathic acute pancreatitis without infection or necrosis Discharge Disposition: Home or Self Care (01) 01/09/2025 9:00 AM EDT Follow-Up [facility] [address] [facility] [place] [phone] Chanucey Cooper MD Idiopathic acute pancreatitis without infection or necrosis (Primary Dx) 01/02/2025 Telephone [facility] Endoscopy [address] [place] [phone] Gisela Arellano RN 12/31/2024 1:18 PM EDT - 12/31/2024 11:59 PM EDT Hospital Encounter [facility] Medical Pavilion Ortho MR Imaging [address] [facility] [place] [phone] Recurrent acute pancreatitis Discharge Disposition: Home or Self Care () 12/12/2024 9:30 AM EDT Follow-Up [facility] Gastroenterology [address] [facility] [place] [phone] Chauncey Cooper MD Recurrent acute pancreatitis (Primary Dx); Encounter for follow-up surveillance of colon cancer from Last 3 Months Allergies Active Allergy Reactions Criticality Noted Date Comments Baclofen Anaphylaxis,Other,S hortness of breath High 07/10/2017 bradypnea Fenofibrate GI intolerance 03/22/2009 Other reaction(s): (Louis) 08/08/2011 Other reaction(s): Intolerance elevated liver enzymes elevated liver enzymes Other reaction(s): (Louis) 08/08/2011 Fenofibrate Micronized GI intolerance 9 elevated liver enzymes Other reaction(s): Intolerance elevated liver enzymes Fluvastatin Unknown 03/14/2006 PT TOLERATES CRESTOR Latex, Natural Rubber Anaphylaxis,Shortn e ss of breath High 03/16/2006 Levofloxacin Other,Swelling 07/10/2017 thrush Other Reaction(s): Other (See Comments), thrush thrush Penicillins Anaphylaxis,Hives,R francoise,Shortness of breath High 03/14/2006 Phenazopyridine GI intolerance,Nausea And Vomiting 03/14/2006 Rosuvastatin GI intolerance,Other Medium 07/10/2017 Elevated liver enzymes, pt cannot take this in addition with fenofibrate Simvastatin Unknown 03/14/2006 PT TOLERATES CRESTOR Sulfa (Sulfonamide Antibiotics) Hives,Shortness of breath High 03/14/2006 Other Reaction(s): Other (See Comments) Sulfamethoxazole-Trimeth oprim Hives Medium 08/19/2019 Tobramycin Rash Low 10/04/2022 Trimethoprim Hives 11/01/2022 Other reaction(s): Hives Medications Medication Sig Dispensed Refills Start Date End Date Status citalopram (CeleXA) 20 mg tablet Take 20 mg by mouth in the morning. Active aspirin 81 mg EC tablet Take 81 mg by mouth 1 (one) time. 11/01/2022 Active cevimeline (Evoxac) 30 mg capsule Take 30 mg by mouth three times daily. 04/17/2018 Active RABEprazole (Aciphex) 20 mg EC tablet Take 20 mg by mouth in the morning and at bedtime. 04/17/2018 Active tamsulosin (Flomax) 0.4 mg 24 hr capsule Take 0.4 mg by mouth in the morning. 04/17/2018 Active amLODIPine (Norvasc) 2.5 mg tablet Take 2.5 mg by mouth in the morning. 09/10/2024 09/10/2025 Active clopidogrel (Plavix) 75 mg tablet Take 75 mg by mouth in the morning. 09/05/2024 09/05/2025 Active estradiol (Estrace) 0.01 % (0.1 mg/gram) vaginal cream Insert into the vagina in the morning. 07/23/2024 Active mirabegron 50 mg tablet extended release 24 hr Take 50 mg by mouth. 08/05/2024 Active traMADol (Ultram) 50 mg tablet 10/11/2024 Active Creon 24,000-76,000 -120,000 unit capsule 12/01/2024 Act kyler casanthranol/docusate sodium (STOOL SOFTENER PLUS LAXATIVE ORAL) Take by mouth. DIGESTSYNC is what she is taking OTC Active fluticasone (Flonase) 50 mcg/actuation nasal spray INSTILL 1 SPRAY IN EACH NOSTIRL TWICE A DAY. for 90 Active HYDROcodone-acetamino phen (Seymour) 5-325 mg tablet 01/03/2025 Active hyoscyamine (Anaspaz,Levsin) 0.125 mg tablet 2 tablet as needed Orally every 4 hrs PRN abd pain 04/28/2024 Active ondansetron ODT (Zofran-ODT) 4 mg disintegrating tablet 01/03/2025 Act kyler Active Problems Problem Noted Date Diagnosed Date BMI 30.0-30.9,adult 09/05/2024 S/P PTCA (percutaneous transluminal coronary ang ioplasty) 09/05/2024 Statin intolerance 09/05/2024 Angina pectoris 02/26/2024 Overview (02/26/2024): non for 4 yrs Cellulitis of right foot due to methicillin-resistant Staphylococcus aureus 02/26/2024 Overview (02/26/2024): nare after surgery Hypercholesterolemia 02/26/2024 Peripheral edema 02/26/2024 Xerostomia 02/26/2024 Atherosclerosis of coronary artery of [place] heart without angina pectoris 08/09/2023 Essential hypertension, benign 08/09/2023 History of coronary artery bypass graft 08/09/20 Ischemic cardiomyopathy 08/09/2023 Paroxysmal SVT (supraventricular tachycardia) Ventricular septal defect 08/09/2023 Chronic pancreatitis 10/04/2022 Dry nose 03/20/2022 Other chronic allergic conjunctivitis 09/13/2021 Morbid obesity 01/31/2018 S/P nasal septoplasty 09/13/2017 Acute myocardial infarction 07/10/2017 Clotting disorder 07/10/2017 Diabetes 07/10/2017 GERD (gastroesophageal reflux disease) 7 Heart disease 07/10/2017 Kidney disease 07/10/2017 Immunizations Name Administration Dates Next Due Influenza, High Dose Seasona l, Preservative Free 2022 Influenza, Unspecified 06/30/2021 Influenza, injectable, MDCK, preservative free, quadrivalent 06/03/2021,07/26/2017 Influenza, injectable, quadr ivalent, preservative free 06/05/2023,06/16/2022,2020,07/23 Influenza, seasonal, injectable 06/15/2014 Influenza, seasonal, injecta ble, preservative free, 6 moonths & older 06/05/2024,07/03/2015 Novel [id number], preservative-free 07/29/2009 Pfizer SARS-CoV-2 Vaccination 01/08/2021 Pneumococcal Polysaccharide PPV23 05/09/2017 Zoster, Recombinant 08/21/2022,06/16/2022 Social History Tobacco Use Types Packs/Day Years Used Date Smoking Tobacco: Never Smokeless Tobacco: Never Tobacco Cessation:Counseling Given: Not Answered Alcohol Use Standard Drinks/Week Comments Never 0 (1 standard drink = 0.6 oz pur e alcohol) Humiliation, Afraid, Rape, and Kick questionnair e Answer Date Recorded Within the last year, have y ou been afraid of your partner or ex-partner? No 02/27/2024 Within the last year, have y ou been humiliated or emotionally abused in other ways by your partner or ex-partner? No Within the last year, have y ou been kicked, hit, slapped, or otherwise physically hurt by your partner or ex-partner? No 02/27/2024 Within the last year, have y ou been raped or forced to have any kind of sexual activity by your partner or ex-partner? No 02/27/2024 PHQ-2 Answer Date Recorded Patient Health Questionnaire-2 Score 1 02/27/2024 Sex and Gender Information Value Date Recorded Sex Assigned at Female 02/27/2024 10:42 AM EDT Gender Identity Female 02/27/2024 10:42 AM EDT Sexual Orientation Heterosexual or Straight 01/30 10:42 AM EDT Last Filed Vital Signs Vital Sign Reading Time Taken Comments Blood Pressure 137/83 01/09/2025 9:08 AM EDT Pulse 76 01/09/2025 9:08 AM EDT Temperature - - Respiratory Rate - - Oxygen Saturation - - Inhaled Oxygen Concentration - - Weight 78 kg (172 lb) 01/09/2025 9:08 AM EDT Height 160 cm (5' 3 ) 12/12/2024 9:47 AM EDT Body Mass Index 30.47 12/12/2024 9:47 AM EDT Plan of Treatment Not on file Procedures Procedure Name Priority Date/Time Associated Diagnosis Comments NM HIDA W EJECTION FRACTION Routine 01/30/2025 2:45 PM EDT Idiopathic acute pancreatitis without infection or necrosis MR ABDOMEN W AND WO CONTRAST MRCP Routine 12/31/2024 2:45 PM EDT Recurrent acute pancreatitis HEMOGLOBIN A1C Routine 02/27/2024 12:18 PM EDT Elevated LFTs from Last 3 Months or Most Recently Relevant to Health Maintenance Results * NM Hida W Pharm (01/30/2025 2:45 PM EDT) Anatomical Region Laterality Modality Nuclear Medicine 02/02/2025 10:0 5 AM EDT Impressions 02/02/2025 10:08 AM EDT Normal HIDA scan status post cholecystectomy with radiotracer activity freely moving into the small bowel no later than 15 minutes. Electronically signed: Viet Prado M.D.. Narrative 02/02/2025 10:08 AM EDT CLINICAL INFORMATION: Sphincter of [place] dysfunction. Idiopathic acute pancreatitis.. TECHNIQUE/PROCEDURE: Anterior images of the abdomen were obtained following the uneventful intravenous administration of 8.3 mCi of technetium 99m MDP. COMPARISON: MRCP 12/31/2024 FINDINGS: There is prompt hepatic uptake with filling of the biliary system and subsequent excretion into the small bowel. Procedure Note Viet Prado MD - 02/02/2025 CLINICAL INFORMATION: Sphincter of [place] dysfunction. Idiopathic acute pancreatitis.. TECHNIQUE/PROCEDURE: Anterior images of the abdomen were obtainedfollowing the uneventful intravenous administration of 8.3 mCi of technetium 99m MDP. COMPARISON: MRCP 12/31/2024 FINDINGS: There is prompt hepatic uptake with filling of the biliary system andsubsequent excretion into the small bowel. IMPRESSION: Normal HIDA scan status post cholecystectomy with radiotracer activityfreely moving into the small bowel no later than 15 minutes. Electronically signed: Viet Prado M.D.. Chauncey Cooper MD IMG NM PROCEDURES * MR abdomen w and wo contrast MRCP (12/31/2024 2:45 PM EDT) Anatomical Region Laterality Modality Abdomen Magnetic Resonan ce 01/02/2025 8:12 AM EDT Impressions 01/02/2025 8:21 AM EDT * Unremarkable MR appearance of the pancreas. * Borderline dilated common bile duct, most likely related to the postcholecystectomy state. * Benign renal cysts. Electronically signed: Figueroa Landeros MD. Narrative 01/02/2025 8:21 AM EDT MRI ABDOMEN WITHOUT AND WITH CONTRAST AND MRCP HISTORY: Recurrent acute pancreatitis COMPARISON: None TECHNIQUE: Multiplanar multisequence MR imaging of the abdomen performed without and with contrast. 3D reformatted images obtained and reviewed for evaluation of the pancreatic and biliary ductal system at the MR console under concurrent physician supervision. FINDINGS: Status post cholecystectomy. The common bile duct measures 0.8 cm. No choledocholithiasis. Mild scoliotic curvature in the spine with degenerative changes. Multiple benign renal cysts with the largest measuring 2.8 cm. These do not require further follow-up. The adrenal glands and spleen are unremarkable. The pancreatic duct is not dilated. No pancreatic mass. Some of the sequences particularly the postcontrast sequences are compromised by motion artifact. Previous median sternotomy. No focal liver mass. Visualized lung bases are unremarkable. Intra-abdominal vascular structures enhance normally. Procedure Note Figueroa Landeros MD - 01/02/2025 MRI ABDOMEN WITHOUT AND WITH CONTRAST AND MRCP HISTORY: Recurrent acute pancreatitis COMPARISON: None TECHNIQUE: Multiplanar multisequence MR imaging of the abdomen performedwithout and with contrast. 3D reformatted images obtained and reviewed forevaluation of the pancreatic and biliary ductal system at the MR console underconcurrent physician supervision. FINDINGS: Status post cholecystectomy. The common bile duct measures 0.8 cm. No choledocholithiasis. Mild scoliotic curvature in the spine withdegenerative changes. Multiple benign renal cysts with the largest measuring 2.8 cm.These do not require further follow-up. The adrenal glands and spleen areunremarkable. The pancreatic duct is not dilated. No pancreatic mass. Some of thesequences particularly the postcontrast sequences are compromised by motionartifact. Previous median sternotomy. No focal liver mass. Visualized lung basesare unremarkable. Intra-abdominal vascular structures enhance normally. IMPRESSION: *Unremarkable MR appearance of the pancreas. *Borderline dilated common bile duct, most likely related to the postcholecystectomy state. *Benign renal cysts. Electronically signed: Figueroa Landeros MD. Chauncey Cooper MD IMG MRI PROCEDURES * Hemoglobin A1c (02/27/2024 12:18 PM EDT) Hemoglobin A1C 5.1 4.0 - 6.0 % 02/27/2024 2:02 PM EDT [facility] Estimated Average Glucose 100 mg/dL 02/27/2024 2:02 PM EDT [facility] Blood Venous blood specimen / Unknown Venipuncture / Unknown 02/27/2024 12:18 PM EDT 02/27/2024 12:18 PM EDT Danielle Magallon MD LAB BLOOD ORDERABLES [facility] ([place]) [address] [place] [address] from Last 3 Months or Most Recently Relevant to Health Maintenance Care Teams Outsole Molder Relationship Specialty Start Date End Date Ziggy Dejesus MD [address] [facility] [address] [address] PCP - General 02/18/24
--- OUTSIDE RECORDS SUMMARY | 2025-03-04 20:18 | XMS_ITS | Encounter Summary ---
Author Organization [employer] Address [id number] [address] [place] [address] Care Team Providers Care Home Office Representative Name Role Phone Ziggy Dejesus MD Primary Care Provider [phone] Encounter Details Date Type Department Care Team ([facility] st Contact Info) Description 08/17/2022 Orders Only [facility] [address] [place] [phone] Antonia Banda, PA-C [address] [facility] [address] [place] [address] Social History Tobacco Use Types Packs/Day Years Used Date Smoking Tobacco: Never Smokeless Tobacco: Never Alcohol Use Standard Drinks/Week Comments No 0 (1 standard drink = 0.6 oz pur e alcohol) PHQ-2 Answer Date Recorded Total Score 0 10/13/2020 Childcare Answer Date Recorded Childcare Unknown 03/04/2019 Employment Answer Date Recorded Employment Unknown 03/04/2019 Purpose - Life Answer Date Recorded Purpose and direction in life Unknown Comments No Sex and Gender Information Value Date Recorded Sex Assigned at Not on file Legal Sex Female 11:31 AM EDT Gender Identity Not on file Sexual Orientation Not on file COVID-19 Exposure Response Date Recorded In the last month, have you been in contact with someone who was confirmed or suspected to have Coronavirus / COVID-19? No / Unsure 07/24/2022 1:01 PM EDT documented as of this encounter Plan of Treatment Upcoming Encounters Date Type Department Care Team (Late st Contact Info) Description 06/24/2025 3:15 PM EDT Office Visit [facility] [address] [facility] [address] [place] [phone] Antonia Banda, PA-C [address] [facility] [address] [place] [address] documented as of this encounter Visit Diagnoses Not on filedocumented in this encounter Additional Health Concerns Assessment Noted Time PHQ-9 Depression Total Score: 0 10/13/19 21 3:43 PM EST documented as of this encounter Care Teams Home Office Representative Relationship Specialty Start Date End Date Ziggy Dejesus MD PCP - General 02/22/17 documented as of this encounter
--- OUTSIDE RECORDS SUMMARY | 2025-03-04 20:18 | XMS_ITS | Encounter Summary ---
Author Organization [facility] Address [address] [place] [address] Care Team Providers Care Research Consultant Name Role Phone Ziggy Dejesus MD Primary Care Provider [phone] Encounter Details Date Type Department Care Team (Late st Contact Info) Description 02/18/2025 Telephone [facility] Medical Pavilion Gastroenterology [facility] [facility] [place] [phone] Anika Sharma MD [facility] Medicine - [address] [place] [phone] Social History Tobacco Use Types Packs/Day Years [...] Heterosexual or Straight 01/30 10:42 AM EDT documented as of this encounter Miscellaneous Notes * Telephone Encounter - Anika Sharma MD - 02/18/2025 12:29 PM EDT Called and discussed with jay pt the HIDA and MRCP in details. ----- Message from Knodium sent at 02/11/2025 3:15 PM EDT ----- Patient calling for results and follow up plan. Office visit with you and Dr. Cooper 01/09/25 documented in this encounter Plan of Treatment Not on file documented as of this encounter Visit Diagnoses Not on filedocumented in this encounter Care Teams Research Consultant Relationship Specialty Start Date End Date Ziggy Dejesus MD [address] [place] [address] PCP - General 02/18/24 documented as of this encounter
--- OUTSIDE RECORDS SUMMARY | 2025-03-04 20:18 | XMS_ITS | Clinical Summary ---
Author Organization [facility] Address [address] [place] [address] Care Team Providers Care Field Service Analyst Name Role Phone Ziggy Dejesus MD Primary Care Provider [phone] Allergies Active Allergy Reactions Criticality Noted Date [...] A DAY. for 90 Active HYDROcodone-acetamino phen ([place]k) 5-325 mg tablet 01/03/2025 Active hyoscyamine (Anaspaz,Levsin) [...] Xerostomia 02/26/2024 Atherosclerosis of coronary artery of [place] heart without angina pectoris 08/09/2023 Essential hypertension, benign 08/09/2023 History of coronary artery bypass graft 08/09/20 23 Ischemic cardiomyopathy 08/09/2023 Paroxysmal SVT (supraventricular tachycardia) Ventricular septal defect 08/09/2023 Chronic pancreatitis 10/04/2022 Dry nose 03/20/2022 Other chronic allergic conjunctivitis 09/13/2021 Morbid obesity 01/31/2018 S/P nasal septoplasty 09/13/2017 Acute myocardial infarction 07/10/2017 Clotting disorder 07/10/2017 Diabetes 07/10/2017 GERD (gastroesophageal reflux disease) 7 Heart disease 07/10/2017 Kidney disease 07/10/2017 Encounters Date Type Department Care Team Description 02/18/2025 Telephone [facility] Gastroenterology [address] [place] [address] [place] [phone] Anika Sharma MD 02/18/2025 Telephone [facility] Gastroenterology [address] [place] [address] [place] [phone] Anika Sharma MD 02/11/2025 Telephone [facility] Endoscopy [address] [place] [address] [place] [phone] Gisela Arellano, LUCIEN 01/30/2025 9:00 AM EDT - 01/30/2025 11:59 PM EDT Hospital Encounter [facility] Nuclear Medicine Imaging [address] [place] [phone] Idiopathic acute pancreatitis without infection or necrosis Discharge Disposition: Home or Self Care () 01/09/2025 9:00 AM EDT Follow-Up [facility] Gastroenterology [address] [place] [phone] Chauncey Cooper MD Idiopathic acute pancreatitis without infection or necrosis (Primary Dx) 01/02/2025 Telephone [facility] [facility] [address] [place] [address] Gisela Arellano, LUCIEN 12/31/2024 1:18 PM EDT - 12/31/2024 11:59 PM EDT Hospital Encounter [facility] Medical Pavilion Ortho MR Imaging [address] [facility] [place] [phone] Recurrent acute pancreatitis Discharge Disposition: Home or Self Care () 12/12/2024 9:30 AM EDT [facility] [address] [place] [phone] Chauncey Cooper MD Recurrent acute pancreatitis (Primary Dx); Encounter for follow-up surveillance of colon cancer from Last 3 Months Immunizations Name Administration Dates Next Due Influenza, High Dose Seasona l, Preservative Free 2022 Influenza, Unspecified 06/30/2021 Influenza, injectable, MDCK, preservative free, quadrivalent 06/03/2021,07/26/2017 Influenza, injectable, quadr ivalent, preservative free 06/05/2023,06/16/2022,2020,07/23 Influenza, seasonal, injectable 06/15/2014 Influenza, seasonal, injecta ble, preservative free, 6 moonths & older 06/05/2024,07/03/2015 Novel [id number], preservative-free 07/29/2009 Pfizer SARS-CoV-2 Vaccination 01/08/2021 Pneumococcal Polysaccharide PPV23 05/09/2017 Zoster, Recombinant 08/21/2022,06/16/2022 Family History Medical History Relation Name Comments Hyperlipidemia Brother 1 [place] Heart attack Brother 2 Ray Hyperlipidemia Father Munoz Hyperlipidemia Mother Katharyn Relation Name Status Comments Brother 1 [place] Brother 2 Ray Father Munoz Mother Katharyn Social History Tobacco Use Types Packs/Day Years [...] 12/12/2024 9:47 AM EDT Plan of Treatment Health Maintenance Due Date Last Done Comments CT Colonography 1964 Colonoscopy 1964 Colorectal Cancer Screening 1964 FIT-DNA 1964 FIT 1964 FOBT 1964 Sigmoidoscopy 1964 Diabetes: Retinopathy Screening 1974 Depression Screening 1976 Diabetes: Urine Protein Screening 1983 Adult Tetanus 1986 Pneumococcal Vaccine: Pediatrics (0 to 5 Years) and At-Risk Patients (6 to 64 Years) (2 of 2 - PCV) 05/09/2018 05/09/2017 Diabetes: Hemoglobin A1C 05/29/2024 02/27/2024 COVID-19 Vaccine ( season) 2024 08/01/2021, 01/29/2021, 01/08/2021 Pap Smear 02/07/2025 02/07/2022 Mammogram 08/15/2025 08/15/2023, 07/24/2022 Cervical Cancer Screening 02/07/2027 HPV/Cotest 02/07/2027 02/07/2022 Zoster Vaccines Completed 08/21/2022, 06/16/2022 Influenza Vaccine Completed 06/05/2024, , 06/16/2022, Additional history exists HIB Vaccines Aged Out No longer eligi ble based on patient's age to complete this topic HPV Vaccines Aged Out No longer eligi ble based on patient's age to complete this topic IPV Vaccines Aged Out No longer eligi ble based on patient's age to complete this topic Meningococcal B Vaccine Aged Out No l onger eligible based on patient's age to complete this topic Meningococcal Vaccine Aged Out No jodi annita eligible based on patient's age to complete this topic Rotavirus Vaccines Aged Out No longer eligible based on [...] vascular structures enhance normally. Procedure Note Figueroa Ladneros MD - 01/02/2025 MRI ABDOMEN WITHOUT AND [...] - 6.0 % 02/27/2024 2:02 PM EDT [facility] Estimated Average Glucose 100 mg/dL 02/27/2024 2:02 PM EDT [facility] Blood Venous blood specimen / Unknown Venipuncture / Unknown 02/27/2024 12:18 PM EDT 02/27/2024 12:18 PM EDT Danielle Magallon MD LAB BLOOD ORDERABLES [facility] [address] [facility] [place], [place] [address] from Last 3 Months or Most Recently Relevant to Health Maintenance Care Teams Field Service Analyst Relationship Specialty Start Date End Date Ziggy Dejesus MD [address] [facility] [address] [address] PCP - General 02/18/24
--- OUTSIDE RECORDS SUMMARY | 2025-03-04 20:18 | XMS_ITS | Encounter Summary ---
Author Organization [facility] Address [id number] [address] [place] [address] Care Team Providers Care Magnetic Tape Typewriter Operator Name Role Phone Ziggy Dejesus MD Primary Care Provider [phone] Encounter Details Date Type Department Care Team (Late st Contact Info) Description 06/28/2022 Telephone [facility] [address] [place] [phone] Jennifer Peng RMA Social History Tobacco Use Types Packs/Day [...] Miscellaneous Notes * Telephone Encounter - ЕЛЕНА Goodman - 06/28/2022 3:22 PM EDT Patient called and states she is starting to have greenish eye drainage. Patient would like to knowif she can have medication sent to her pharmacy. * Telephone Encounter - Antonia Banda PA-C - 06/28/2022 3:22 PM EDT I called and talked to the patient to get more about her symptoms, patient has a history of dacryocystitis of the right eye and has had surgery for this with Dr. Messer. I sent in eye drops advisedher to call the office if she did not improve or worsened. documented in this encounter Plan of Treatment Upcoming Encounters Date Type Department Care Team (Late st Contact Info) Description 06/24/2025 3:15 PM EDT Office Visit [facility] [address] [place] [phone] Antonia Banda PA-C [address] [facility] [address] [place] [address] documented as of this encounter Visit Diagnoses Not on filedocumented in this encounter Additional Health Concerns Assessment Noted Time PHQ-9 Depression Total Score: 0 10/13/19 21 3:43 PM EST documented as of this encounter Care Teams Magnetic Tape Typewriter Operator Relationship Specialty Start Date End Date Ziggy Dejesus MD PCP - General 02/22/17 documented as of this encounter
--- OUTSIDE RECORDS SUMMARY | 2025-03-04 20:18 | XMS_ITS | Clinical Summary ---
Author Organization [facility] Address [address] [place] [address] Phone Care Team Providers Care Ceo Name Role Phone Ziggy Dejesus MD Primary Care Provider [phone] Allergies Active Allergy Reactions Criticality Noted Date Comments Baclofen Shortness of breath High 08/09/2023 Latex Shortness of breath High 08/09/2023 Penicillins Rash Low 08/09/2023 Rosuvastatin Other Medium 08/09/2023 Sulfa (Sulfonamide Antibiotics) Shortness of breath High 08/09/2023 Sulfamethoxazole-Trimethoprim Hives Medium 2022 Medications cevimeline (Evoxac) 30 mg capsule Take by mouth 3 times a day. 1 Active diclofenac sodium 3 % gel twice a day. 1 Active docusate sodium (Colace) 100 mg capsule Take 1 capsule (100 mg) by mouth 2 times a day. Active fluticasone (Flonase) 50 mcg/actuation nasal spray Administer 1 spray into affected nostril(s) 2 times a day. 1 Active nystatin (Nyamyc) 100,000 unit/gram powder apply topically to affected area twice a day if needed 0 Active Aciphex EC tablet Take 1 tablet (20 mg) by mouth 2 times a day. Active tamsulosin (Flomax) 0.4 mg 24 hr capsule Take 1 capsule (0.4 mg) by mouth once daily. 1 Active calcium carbonate (CALCIUM 500 ORAL) Take 1 tablet by mouth once daily. Active vit C/E/Zn/coppr/lute in/zeaxan (PRESERVISION AREDS-2 ORAL) Take by mouth twice a day. Active multivit-min/ferr ous fumarate (MULTI VITAMIN ORAL) Take 1 tablet by mouth 2 times a day. Active mometasone (Elocon) 0.1 % cream twice a day. 1 Active nitroglycerin (Nitrostat) 0.4 mg SL tabletIndications :Atherosclerosis of coronary artery of [place] heart without angina pectoris, unspecified vessel or lesion type Place 1 tablet (0.4 mg) under the tongue every 5 minutes if needed for chest pain. 90 tablet 3 3 Active mirabegron (Myrbetriq) 50 mg tablet extended release 24 hr 24 hr tablet Take 1 tablet (50 mg) by mouth once daily. 4 Active estradiol (Estrace) 0.01 % (0.1 mg/gram) vaginal cream Insert into the vagina once daily. 4 Active citalopram (CeleXA) 40 mg tablet Take 1 tablet (40 mg) by mouth once daily. 4 Active clopidogrel (Plavix) 75 mg tabletIndications :Atherosclerosis of coronary artery bypass graft of [place] heart without angina pectoris,S/P PTCA (percutaneous transluminal coronary angioplasty),Hist ory of coronary artery bypass graft Take 1 tablet (75 mg) by mouth once daily. 90 tablet 3 4 09/05/20 25 Active amLODIPine (Norvasc) 2.5 mg tabletIndications :Essential hypertension Take 1 tablet (2.5 mg) by mouth once daily. 90 tablet 3 4 09/10/20 25 Active aspirin 81 mg EC tabletIndications :Atherosclerosis of coronary artery bypass graft of [place] heart without angina pectoris TAKE 1 TABLET BY MOUTH DAILY 90 tablet 3 5 Active Active Problems Problem Noted Date Diagnosed Date Statin intolerance 09/05/2024 BMI 30.0-30.9,adult 09/05/2024 S/P PTCA (percutaneous transluminal coronary ang ioplasty) 09/05/2024 Pancreatitis ([facility]) 08/13/2024 Atherosclerosis of coronary artery of [place] heart without angina pectoris 08/09/2023 Essential hypertension 08/09/2023 History of coronary artery bypass graft 08/09/20 23 Hyperlipidemia 08/09/2023 Ischemic cardiomyopathy 08/09/2023 Paroxysmal SVT (supraventricular tachycardia) Ventricular septal defect ([facility]) 08/09/2023 Family History Medical History Relation Name Comments Heart attack Brother 2 bro Stroke Brother 2 bro open heart Brother 2 bro Relation Name Status Comments Brother 2 bro Social History Tobacco Use Types Packs/Day Years Used Date Smoking Tobacco: Never Smokeless Tobacco: Never Tobacco Cessation:Counseling Given: Yes Alcohol Use Standard Drinks/Week Comments Never 0 (1 standard drink = 0.6 oz pur e alcohol) Comments Unknown Sex and Gender Information Value Date Recorded Sex Assigned at Not on file Legal Sex Female 5:40 AM EST Gender Identity Not on file Sexual Orientation Not on file Last Filed Vital Signs Vital Sign Reading Time Taken Comments Blood Pressure 118/80 09/05/2024 9:53 AM EST Pulse 66 09/05/2024 9:53 AM EST Temperature - - Respiratory Rate - - Oxygen Saturation - - Inhaled Oxygen Concentration - - Weight 77.1 kg (170 lb) 09/05/2024 9:53 AM EST Height 160 cm (5' 3 ) 09/05/2024 9:53 AM EST Body Mass Index 30.11 09/05/2024 9:53 AM EST Plan of Treatment Upcoming Encounters Date Type Department Care Team (Late st Contact Info) Description 03/17/2025 2:40 PM EDT Office Visit [address] [phone] Celso Garibay DO [address] [place] [address] [address], [address] [address] 08/18/2025 11:20 AM EST Office Visit [address] [phone] Celso Garibay DO [address] [place] [address] [address], [address] [address] Health Maintenance Due Date Last Done Comments CT Colonography 1964 FIT-DNA (Cologuard) 1964 FIT 1964 HIV Screening 1964 Lipid Panel 1964 Sigmoidoscopy 1964 Yearly Adult Physical 1964 Diabetes Screening 1982 Hepatitis C Screening 1982 HPV/Cotest 1985 DTaP/Tdap/Td Vaccines (1 - Tdap) 1986 MMR Vaccines (1 of 1 - Standard series) 08/26/2009 Pneumococcal Vaccine (2 of 2 - PCV) 05/09/2018 05/09/2017 COVID-19 Vaccine (4 - season) 2024 08/01/2021, 01/29/2021, 01/08/2021 RSV High Risk: (Elderly (60+) or Population) (1 - Risk 60-74 years 1-dose series) 2024 Mammogram 08/15/2024 08/15/2023, 07/02, 10/28/2020 Cervical Cancer Screening 02/07/2025 Pap Smear 02/07/2025 02/07/2022, 02/07/2022 Colonoscopy 11/02/2032 11/02/2022, 11/01/2022 Colorectal Cancer Screening 11/02/2032 Zoster Vaccines Completed 08/21/2022, 06/16/2022 Influenza Vaccine Completed 06/05/2024, , 06/16/2022, Additional history exists HIB Vaccines Aged Out No longer eligi ble based on patient's age to complete this topic HPV Vaccines Aged Out No longer eligi ble based on patient's age to complete this topic Hepatitis A Vaccines Aged Out No long er eligible based on patient's age to complete this topic Hepatitis B Vaccines Aged Out No long er eligible based on patient's age to complete this topic IPV Vaccines Aged Out No longer eligi ble based on patient's age to complete this topic Meningococcal Vaccine Aged Out No jodi annita eligible based on patient's age to complete this topic Rotavirus Vaccines Aged Out No longer eligible based on patient's age to complete this topic Insurance [facility] Care Teams Ceo Relationship Specialty Start Date End Date Ziggy Dejesus MD [address] [place] [address] PCP - General 08/17/21
--- OUTSIDE RECORDS SUMMARY | 2025-03-04 20:18 | XMS_ITS | Encounter Summary ---
Author Organization [facility] Address [address] [place] [address] Care Team Providers Care Managing Director Name Role Phone Ziggy Dejesus MD Primary Care Provider [phone] Encounter Details Date Type Department Care Team (Late st Contact Info) Description 02/18/2025 Telephone [facility] [place] [phone] Anika Sharma MD [facility] - [address] [place] [phone] Social History Tobacco Use Types Packs/Day Years [...] Encounter - Anika Sharma MD - 02/18/2025 12:28 PM EDT ----- Message from [employer] sent at 02/11/2025 3:15 PM EDT ----- Patient calling for results and follow up plan. Office visit with you and Dr. Cooper 01/09/25 documented in this encounter Plan of Treatment Not on file documented as of this encounter Visit Diagnoses Not on filedocumented in this encounter Care Teams Managing Director Relationship Specialty Start Date End Date Ziggy Dejesus MD [address] [facility] [place] [address] PCP - General 02/18/24 documented as of this encounter
--- OUTSIDE RECORDS SUMMARY | 2025-03-04 20:27 | XMS_ITS | CCD ---
Author Organization [facility] Care Team Providers Care Consulting Networking Engineer Name Role Phone UNKNOWN, PROVIDER Unavailable Unavailable ASHLEY GRIGSBY Unavailable Unavailable UNKNOWN, PROVIDER Unavailable Unavailable ASHLEY GRIGSBY Unavailable Unavailable Ashley Grigsby Primary Care Provider [phone] Ashley Grigsby Unavailable Unavailable Unavailable Ashley Grigsby MD Primary Care Provider [phone] Unavailable Unavailable Ashley Grigsby Primary Care Physician [...] DR ASHLEY GRIGSBY Admitting Unavailable SEB, DR TRINH Attending Unavailable DR ASHLEY GRIGSBY Primary Care Unavailable DR ASHLEY GRIGSBY Consulting Unavailable MD Ashley Grigsby Primary Care Provider [phone] MD Evert Bruno Attending Provider Evert Bruno Unavailable MD Ashley Grigsby Primary Care Provider [phone] MD Evert Bruno Attending Provider Ashley Grigsby MD Primary Care Provider [phone] GABY PHILLISP Admitting Unavail able GABY PHILLIPS Attending Unavail able SEBASHLEY Primary Care Unavailable SEB ASHLEY Clements Primary Care Unavailable Ashley Grigsby MD Primary Care Provider [phone] STEPHANIE BERGER Attending Unavailable ASHLEY GRIGSBY M Referring Unavailable HOY ASHLEY M Primary Care Unavailable HOY ASHLEY M Referring Unavailable HOY, ASHLEY M Primary Care Unavailable ALASTAL, YASEEN S Admitting Unavailable ALASTAL, YASEEN S Attending Unavailable SEB ASHLEY M Primary Care Unavailable MAGO MONAE Attending Unavailable SEB ASHLEY M Primary Care Unavailable ALASTAL, YASEEN S Attending Unavailable ALASTAL, YASEEN S Referring Unavailable DANIELEstefani ASHLEY M Primary Care Unavailable BARRY MARTINO Attending Unavailab BARRY Rosa Attending Unavailab BARRY Rosa Attending Unavailab Ashley Ruiz MD Primary Care Provider [phone] Lynnette Chapman MD Emergency Provider Donis Arroyo DO Admit Provider Donis Arroyo DO Attending Provider [phone] Anita Hammonds RN Unavailable Unavailable Donis Arroyo [...] Marsh Consulting Unavailable Jackie Daugherty Consulting Unavailable CELSO GARIBAY Attending Unavailable CELSO GARIBAY Referring Unavailable ASHLEY GRIGSBY Primary Care Unavailable CELSO GARIBAY Attending Unavailable ASHLEY GRIGSBY Primary Care Unavailable Ashley Grigsby MD Primary Care Provider [phone] Ashley Grigsby MD Primary Care Provider [phone] RAJI BYRD Attending Unavailable RAJI BYRD Referring Unavailable NAWRAS, ALI T Referring Unavailable ASHLEY GRIGSBY Primary Care Unavailable RADHA JAIMES Referring Unavailable ASHLEY GRIGSBY Primary Care Unavailable NAWRAS, ALI Referring Unavailable DANIELLE CESAR Attending Unavailable NAWRAS, ALI Attending Unavailable NAWRAS, ALI Attending Unavailable NAWRAS, ALI Referring Unavailable Allergies Allergy Classification Reported Allergen(s) Allergy Type Date of Onset Reaction(s) Facility (20 sources) Baclofen; Translations: [Baclofen TABS] Drug Allergy 017 Other (See Comments), Shortness of breath [place] (20 sources) Latex; Translations: [LATEX] Propensity to adverse reactions to drug 006 Anaphylaxis, Shortness Of Breath, Anaphylaxis (disorder) [place] (16 sources) Penicillins; Translations: [penicillins] Propensity to adverse reactions to drug 006 Hives, Anaphylaxis (disorder) [place] (3 sources) rosuvastatin Drug Allergy 019 [place] (20 sources) Sulfamethoxazole / Trimethoprim; Translations: [Bactrim TABS] Drug Allergy 019 [place], [place] (11 sources) natural latex rubber Allergy to substance (finding) Shortness of breath [facility] [employer] y 250 DO Work Phone: (11 sources) Penicillins; Translations: [Penicillins] Allergy to drug (finding) [facility] Work Phone: (20 sources) rosuvastatin; Translations: [Crestor TABS] Drug Allergy 017 Elevated liver enzymes level (finding), Other, Other (See Comments) [facility] (16 sources) Sulfonamides (Antibiotic); Translations: [Sulfa Drugs] Allergy to drug (finding) Hives [facility] (20 sources) levoFLOXacin; Translations: [levofloxacin] Drug Allergy 017 Other (See Comments), Candidiasis (disorder) [employer] Work Phone: (8 sources) Phenazopyridine; Translations: [PHENAZOPYRIDINE HCL] Drug Allergy Nausea And Vomiting [employer] Work Phone: (3 sources) Simvastatin; Translations: [SIMVASTATIN] Drug Allergy [employer] Phone: (5 sources) Sulfonamides (Antibiotic) Propensity to adverse reactions to drug Other (See Comments), Hives, Shortness of breath [employer] (12 sources) Tobramycin; Translations: [tobramycin] Drug Allergy 023 Eruption of skin (disorder), Rash [facility] (1 source) Baclofen Drug Allergy [facility] (1 source) Latex Drug allergy (disorder) [facility] (5 sources) levoFLOXacin; Translations: [Levaquin] Drug Allergy thrush [facility] (1 source) Penicillins Drug allergy (disorder) [facility] (1 source) rosuvastatin Drug Allergy [facility] (1 source) Sulfonamides (Antibiotic) Drug allergy (disorder) [facility] (11 sources) rosuvastatin; Translations: [ROSUVASTATIN] Drug Allergy 017 Gastrointestinal Upset [facility] (5 sources) Sulfamethoxazole; Translations: [sulfamethoxazole] Drug Allergy 023 Hives, Hives, ([place]) 08/08/2011 [facility] (10 sources) Trimethoprim; Translations: [trimethoprim] Drug Allergy 023 Hives, Hives, ([place]) 08/08/2011 [facility] (6 sources) Fenofibrate; Translations: [FENOFIBRATE] Drug Allergy 009 ([place]) 08/08/2011 [employer] (3 sources) Penicillin Drug Allergy ([place]) 08/08/2011 [employer] Other (9 sources) Substance with sulfonamide structure and antibacterial mechanism of action (substance) Drug allergy Shortness of breath, Hives [facility] Other (7 sources) Penicillins Propensity to adverse reactions to drug Hives, Rash [facility] (4 sources) Tobramycin Drug Allergy 023 Rash [facility] (7 sources) Fenofibrate; Translations: [FENOFIBRATE MICRONIZED] Drug Allergy 009 [facility] (7 sources) Sulfonamides (Antibiotic); Translations: [SULFA (SULFONAMIDE ANTIBIOTICS)] Propensity to adverse reactions to drug (disorder) Unknown Reaction [facility] (1 source) Baclofen Drug Allergy [facility] (1 source) Fenofibrate Drug Allergy [facility] (1 source) Latex Drug allergy (disorder) [facility] (1 source) levoFLOXacin Drug Allergy [facility] (1 source) Penicillins Drug allergy (disorder) [facility] (3 sources) Baclofen Drug Allergy 017 Other, Shortness of breath [facility] (3 sources) Fenofibrate Drug Allergy GI intolerance [facility] (4 sources) fluvastatin; Translations: [FLUVASTATIN] Drug Allergy [facility] (3 sources) Latex Allergy to substance Anaphylaxis, Shortness of breath [facility] (3 sources) Penicillins Drug Intolerance Hives, Rash [facility] (4 sources) Phenazopyridine; Translations: [PHENAZOPYRIDINE] Drug Allergy GI intolerance [facility] (1 source) natural latex rubber; Translations: [LATEX, NATURAL RUBBER] Propensity to adverse reactions to drug (disorder) [facility] Repository Medications Current Medications Medication Drug Class(es) [...] Atherosclerosis of coronary artery bypass graft of [place] heart without angina pectoris , History of [...] injectable solution (1 source) Start: 06-18-2023 lactated nohelia rs IV soln infusion cholecalciferol 0.125 mg [...] Start: 11-01-2022 take 4 tablets by mo [facility] once daily Citalopram 10 mg tablet Active 40 MG PO Daily November 01, 2022 12:00am Start: 11-01-2022 take 10 mg by mouth once daily Citalopram Active 10 MG PO Daily November 01, 2022 1:00am End: 08-13-2024 citalopram (CeleXA) 20 MG ta blet Take 20 mg by mouth Active take 2 tablets by mo ut once daily citalopram (CELEXA) 10 MG tablet Take 2 tablets by mouth daily 0 Active clopidogrel 75 mg oral tablet (2 sources) P2Y12 Platelet Inhibitor Start: 09-05-2024 End: 09-05-2025 take 1 tablet by mouth once daily clopidogrel (Plavix) 75 mg tablet Indications: Atherosclerosis of coronary artery bypass graft of [place] heart without angina pectoris , S/P PTCA [...] mouth two times weekly Vitamin D (Ergocalciferol) 56382 UNIT 1 capsule Orally TWICE a Week [...] 3 weeks, then 3x per week thereafter, [id number], 160, cm, 04/10/24 15:13:00 EDT, Height/Length Dosing, [...] Start: 04-30-2020 fluticasone 0. 05 mg/inh Nasal Jerome Refill(s) 0 Start Date: 04/30/20 Status: Ordered Start: 10-24-2017 End: 02-29-2024 take 2 spray(s) nasal route once daily fluticasone (FLONASE) 50 mcg/actuation nasal spray Indications: Chronic pansinusitis Administer 2 sprays into each nostril daily. 16 g 11 10/24/2017 02/29/2024 Discontinued (Duplicate Listing) fluticasone 0.05 mg/inh Nasal [place] (3 sources) Start: 04-30-2020 fluticasone 0.05 mg/inh Nasal [place] Refill(s) 0 Start Date: 04/30/20 Status: Ordered [...] # 45 tab(s), Refills(s) 3, Pharmacy: [facility], 160, cm, 06/02/22 8:29:00 EDT, Height/Length [...] # 90 tab(s), Refills(s) 3, Pharmacy: [facility], 160, cm, 05/27/21 8:19:00 EDT, Height/Length [...] day(s), # 30 tab(s), Refills(s) 11, Pharmacy: [id number], 160, cm, 04/10/24 15:13:00 EDT, Height/Length Dosing, [...] 2 PO) Take by mouth 0 Active hsevehqf-wghb-EV-arley cium &mins (THERAGRAN-M) 9 mg iron-400 mcg tablet (3 sources) qtrollbg-eoyp-WR - calcium &mins (THERAGRAN-M) 9 mg iron-400 [...] mouth 2 times a day. 0 Active Cvwijlprzduh-Pzq-Qhzu-Fa-Vit K (Bariatric Multivitamins) 45 mg iron- 800 mcg-120 mcg Capsule (4 sources) Start: 11-01-2022 take 1 capsule by mouth twice daily Fbqzsucofddb-Gmj-Ywsb-Fa-Vit K (Bariatric Multivitamins) 45 mg iron- 800 mcg-120 mcg Capsule Active 1 CAP PO Twice daily November 01, 2022 1:00am Start: 11-01-2022 take 1 capsule by [facility] twice daily Cutzlxtdslxp-Qim-Mdvq-Fa-Vit K (Bariatri c Multivitamins) 45 mg iron- [...] tablet Indications: Atherosclerosis of coronary artery of [place] heart without angina pectoris, unspecified vessel or [...] powder 04/19/2018 Active omega-3 acid ethyl esters (half-way) 1000 mg oral capsule (3 sources) take [...] April 21, 2018 11:01pm polyethylene glycol 3350 670706 mg / potassium chloride 2970 mg / sodium bicarbonate 6740 mg / sodium chloride 5860 mg / sodium sulfate 94000 mg powder for oral solution (3 sources) Osmotic Laxative Start: 10-24-2022 take 236 g by mouth once Golytely 236 GM as directed Orally the day prior to colonoscopy for 1 days Oct, Active prasugrel 10 mg oral tablet (3 sources) P2Y12 Platelet Inhibitor take 10 mg by mouth once daily effient 10 mg once a day po Active PreserVision AREDS (2 sources) Start: 07-11-2024 PreserVision AREDS Refill(s) 0 Start Date: 04/10/24 [...] mouth 3 times a day. Active sod xqocb-xotlfo-rhszpy bottle (NEILMED SINUS RINSE COMPLETE) packet with rinse device nasal solution (3 sources) Start: 09-13-2017 take 1 dose nasal route once daily sod zrsro-pkagbu-rkpatc bottle (NEILMED SINUS RINSE COMPLETE) packet with rinse device nasal solution Indications: S/P nasal septoplasty Administer 1 packet into each nostril daily. 60 packet 09/13/2017 Active 5 ml sodium chloride 9 mg/ml injection (9 sources) Start: 06-18-2023 take 1 dose intravenously twice daily 5-40 mL, IntraVENous, EVERY 12 HOURS SCHEDULED (2 times per day), First dose on 06/18/23 at 2100, Until Discontinued For Line Patency: [...] # 180 cap(s), Refills(s) 3, Pharmacy: [facility], 160, cm, 05/27/21 8:19:00 EDT, Height/Length Dosing, 61, kg, 05/27/21 8:19:00 EDT, Weight Dosing Start Date: 03/14/22 Stop Date: 03/09/23 Status: Ordered Start: 04-17-2018 take 1 capsule by [facility] once daily tamsulosin (Flomax) 0.4 mg 24 hr capsule Take 1 capsule (0.4 mg) by mouth once daily. 10/26/2020 Active take 1 capsule by [facility] every twenty-four hours in the morning tamsulosin [...] (3 sources) take 1 capsule by mo [facility] every twenty-four hours Coenzyme Q-10 200 MG 1 capsule with a meal Orally Once a day for 30 day(s) Active vibegron 75 MG Oral Tablet [Gemtesa] (1 source) Start: 04-10-2024 End: 04-05-2025 take 1 tablet by mouth once daily Gemtesa 75 mg oral tablet 75 mg = 1 tab(s), Oral, Daily, X 30 day(s), # 30 tab(s), Refills(s) 11, Pharmacy: [facility] #[id number], 160, cm, 04/10/24 15:13:00 EDT, Height/Length Dosing, 74, kg, 04/10/24 15:13:00 EDT, Weight Dosing Start Date: 04/10/24 Stop Date: 04/05/25 Status: Ordered vit C,C-Ex-qtmro-lutein-zeaxan (PRESERVISION AREDS-2) 250-90-40-1 mg capsule (1 source) vit C,T-Ap-rgofj-lutein-z eaxan (PRESERVISION AREDS-2) 250-90-40-1 mg capsule Take [...] a day for 30 day(s) Active vitamins A,C,X-xvzr-dfsrvj (1 source) Start: 08-19-2024 vitamins A,C,F-usal-pqfugm Active PO August 19, 2024 12:00am Zyrtec [...] 650 mg take 2 tablets by mo ut every six hours as needed for pain [...] ascorbic acid 226 mg / beta carotene 02468 unt / cuprous oxide 0.8 mg / [...] / neomycin 3.5 mg/ml / polymyxin b 67951 unt/ml ophthalmic suspension (3 sources) Aminoglycoside Antibacterial, Polymyxin-class Antibacterial, Corticosteroid Start: 06-13-2021 take 2 drop(s) into the eye(s) four times daily Neomycin-Polymyxin- HC 3.5-25872-7 Ophthalmic Suspension instill 2 drops INTO AFFECTED [...] sources) Coronary atherosclerosis; Translations: [Coronary atherosclerosis of [place] coronary artery] Onset: 2 Chronic Coronary atherosclerosis [...] 4 08-18-2024 Episodic Other aftercare (1 source) nursing home (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; Translations: [DROP WIRE HANGER CURRENT USE OF ASPIRIN] Onset: 3 Episodic Other aftercare (1 source) 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; Translations: [OTH DROP WIRE HANGER CURRENT DRUG THERAPY] Onset: 3 Episodic Other aftercare (2 sources) Encounter for follow-up examination after completed treatment for malignant neoplasm; Translations: [Encounter for follow-up examination after completed treatment for malignant neoplasm] Onset: 5 Episodic Other and ill-defined heart disease (3 sources) Heart disease; Translations: [Heart disease, unspecified] Onset: 7 07-10-2017 Chronic Other connective tissue disease (2 sources) Tendonitis [...] rhinitis; Translations: [Allergic rhinitis, unspecified] 01-17-2024 Chronic Pancreatic disorders (not diabetes) (15 sources) Idiopathic acute pancreatitis without necrosis or infection; Translations: [Acute pancreatitis without necrosis or infection, unspecified] Onset: 3 Episodic Residual codes; unclassified (4 sources) Other specified health status; Translations: [Other drug allergy] Onset: 4 09-05-2024 Episodic Unclassified (1 source) Presence of aortocoronary bypass graft / Z95.1(ICD-9) Onset: 7 Unclassified (1 source) Athscl heart disease of [place] coronary artery w/o ang pctrs / I25.10(ICD-9) [...] sources) Mood disorders Onset: 10-13-2020 10-13-2020 Other connective tissue disease (1 source) Pain in left arm; Translations: [Pain in left arm] Onset: 10-11-2024 Episodic Other connective tissue disease (1 source) Pain in right arm; Translations: [Pain in right arm] Onset: 10-11-2024 Episodic Other diseases of kidney and ureters (3 [...] and nasal sinuses] Onset: 03-20-2022 01-17-2024 Episodic Unclassified (1 source) Encounter for preprocedural cardiovascular examination; Translations: [Encounter for preprocedural cardiovascular examination] Onset: 08-29-2017 Unclassified (11 sources) Never smoked tobacco; Translations: [Never a smoker] Results Test Name Value Interpretation Reference Range Facility [id number] 36 Called and discussed with jay pt the HIDA and MRCP in details. ----- Message from Gisela sent at 02/11/2025 3:15 PM EDT ----- Patient calling for results and follow up plan. Office visit with hardik and Dr. Kimble 01/09/25 [facility] 36 ----- Message from Gisela sent at 02/11/2025 3:15 PM EDT ----- Patient calling for results and follow up plan. Office visit with hardik and Dr. Kimble 01/09/25 [facility] Telephoneon 02-18-2025 Telephone [id number] Diana Saleem ttodalis 1965 Provider Department Center 02/18/2025 [facility]IS [facility] [place] Family History Problem Relation Age of Onset Hyperlipidemia Mother Hyperlipidemia Father Hyperlipidemia Brother Heart attack Brother Family Status - Relation Status Age at Mother Father Brother Brother [facility] 3602-11-2025 36 Patient called me to get results of HIDA scan and then what to do as follow up. I do see the HIDA scan results from 01/30/25 @ [facility] and they are normal will forward to Dr. Sharma on of our [address] to see what further he would like to do. [facility] Telephoneon 02-11-2025 Telephone [id number] Diana Saleem tte 1965 Provider Department Center 02/11/2025 [facility] Family History Problem Relation Age of Onset Hyperlipidemia Mother Hyperlipidemia Father Hyperlipidemia Brother Heart attack Brother Family Status - Relation Status Age at Mother Father Brother Brother Normal [facility] NM HIDA W EJECTION FRACTIONo n 01-30-2025 NM HIDA W EJECTION FRACTION CLINICAL INFORMATION: Sphincter of [place] dysfunction. Idiopathic acute pancreatitis.. TECHNIQUE/PROCEDURE: Anterior images of the abdomen were obtained following the uneventful intravenous administration of 8.3 mCi of technetium 99m MDP. COMPARISON: MRCP 12/31/2024 FINDINGS: There is prompt hepatic uptake with filling of the biliary system and subsequent excretion into the small bowel. IMPRESSION: Normal HIDA scan status post cholecystectomy with radiotracer activity freely moving into the small bowel no later than 15 minutes. Electronically signed: Viet Prado M.D.. Not Vldtd Invalid Interpretation Code [facility] Elastase.pancreatic (Stl) [M ass/Mass]on 01-17-2025 Pancreatic Elastase, F 174 mcg/g Low >200 (Normal) [facility] Comment on above: Result Comment: NOTE Interpretation: Borderline (100-200 mcg/g); Consistent with slight to moderate pancreatic insufficiency Test Performed by: [facility] [address] [place] [address] Neurodiagnostic Technologist: Andra Flores Ph.D.; CLIA# [id number] Performed By: #### 2 [id number] #### [facility] ([id number]) [address] [place] [address], [place] [address] 29on 01-09-2025 29 Addended by: CHAUNCEY KIMBLE on: 01/10/2025 08:32 AM Modules accepted: Level of Service Normal [facility] Follow-Upon 01-09-2025 Follow-Up [id number] Diana Saleem 1965 F Date Provider Department Center 01/09/2025 [facility] Family History Problem Relation Age of Onset Hyperlipidemia Mother Hyperlipidemia Father Hyperlipidemia Brother Heart attack Brother Family Status - Relation Status Age at Mother Father Brother Brother Level of Service:49046 [place] OFFICE/OUTPATIENT ESTABLISHED MOD MDM 30 MIN () Reason for Visit and Comments: Follow-up [491427] - MRI follow up and seen at [facility] and in hospital for 1 day. Will get records. Enzo helped tremendously this time and she came home with it, She just complains of fatigue. PCP Ordered sleep study Normal [facility] 36on 01-02-2025 36 01/02/25@1548 Returned a phone call to patient. She had wanted to follow up with Dr. Chauncey Kimble to let him know she is currently in the ER at [facility] dx with pancreatitis. She had an MRCP on 12/31/24 and if any other lab work needs done to call the Hospital. Normal [facility] Telephoneon 01-02-2025 Telephone [id number] Diana Saleem ttodalis 1965 F Date Provider Department Center 01/02/2025 GISELA OMER [facility] Family History Problem Relation Age of Onset Hyperlipidemia Mother Hyperlipidemia Father Hyperlipidemia Brother Heart attack Brother Family Status - Relation Status Age at Mother Father Brother Brother Normal [facility] MR ABDOMEN W AND WO CONTRAST MRCPon 12-31-2024 MR ABDOMEN W AND WO CONTRAST MRCP MRI ABDOMEN WITHOUT AND WITH CONTRAST AND [...] are unremarkable. Intra-abdominal vascular structures enhance normally. IMPRESSION: * Unremarkable MR appearance of the pancreas. * Borderline dilated common bile duct, most likely related to the postcholecystectomy state. * Benign renal cysts. Electronically signed: Figueroa Landeros MD. Not Vldtd Invalid Interpretation Code [facility] Follow-Upon 12-12-2024 Follow-Up [id number] Diana Saleem tte 1965 F Date Provider Department Center 12/12/2024 CHAUNCEY CESPEDES [facility] Family History Problem Relation Age of Onset Hyperlipidemia Mother Hyperlipidemia Father Hyperlipidemia Brother Heart attack Brother Family Status - Relation Status Age at Mother Father Brother Brother Level of Service:64528 [place] OFFICE/OUTPATIENT NEW MODERATE MDM 45 MINUTES (GC) Reason for Visit and Comments: Pancreatitis [323899] - Pain when she stresses or when she eats. She has trouble with losing weight as she always feels bloated and gassy. Normal [facility] XR Wrist - right 2 Viewson 0 11-26-2024 Imaging Result: AP and Lateral Right Wrist: Bone Structure: No acute fracture or dislocation Joint Spaces: The carpal joint spaces are well preserved, mild joint space narrowing and remodeling with subchondral sclerosis distal radius favoring arthritis. , Scapho-lunate interval within normal limit. Soft tissue: No swelling or calcification Impression: No acute bony process Right Wrist [facility] Radiology Study observation (narrative) [facility] XR FOREARM RT 2 VWSon 2024 XR FOREARM RT 2 VWS XR FOREARM RT 2 VWS CLINICAL INFORMATION: Right arm pain TECHNIQUE: XR FOREARM RT 2 VWS 2 views right forearm are obtained. There is no acute osseous, articular, or soft tissue abnormality. IMPRESSION: Negative exam. Finalized by Afshin Barrett MD on 10/11/2024 1:59 PM Normal [facility] ECG 12 lead ECGon 08-22-2024 ECG 12 lead ECG [facility] Main [place] [address] [place] [address] Electrocardiograph Report Signed Patient: Jose Alberto Saleem MR#: [id number] : 1965 Acct:[id number] Age/Sex: 59 / F ADM Date: 08/20/24 Loc: Room: [address] [place] [address] Type: DIS IN Attending Dr: Kaiser Quijano [...] abnormality Abnormal ECG Confirmed by Bella Stein ([id number]) on 08/22/2024 11:33:07 PM Referred By: Bella Stein Electronically Signed By: Bella Stein Transcribed By: MUS Signed By Bella Stein MD 4 [id number] Normal [facility] Troponin I High Sensitivityo n 08-22-2024 Troponin I High Sensitivity 1211.6 pg/mL Off scale high 0.0-15.0 [facility] Phys[facility] Comment on above: Result Comment: Crit ical Result : Called to and read back by: ROB MCDONALD at: 08/22/2024 06:38:37 by:RAMONA PERFORMED BY: [address] [place] [address] PATHOLOGIST DIE LAY OUT WORKER JANA OLMEDO M.D. Performed By: #### H S TROP ####[place] [id number] [facility] Blood Urea Nitrogenon 2023 Urea nitrogen [Mass/Vol] 14 mg/dL Normal 7-25 [facility] Comment on above: Performed By: #### C REAT, BUN, PP, CBC, LYTES ####[place] [id number] [facility] Coagulation Profileon 2023 aPTT Coag (Bld) [Time] 35.9 s Normal 25.1-36.5 [facility] Comment on above: Result Comment: A he matocrit value greater than 55% may lead to inaccurate results in coagulation testing. Patients having hematocrit values >55% require a special collection tube for coagulation studies. Please contact the laboratory at [phone] for redraw instructions. PERFORMED BY: [address] [place] [id number] PATHOLOGIST DIE LAY OUT WORKER MOHAMED M EL-FAKHARANY M.D. Performed By: #### C REAT, BUN, PP, CBC, LYTES ####[place] [id number] [place] [id number] [facility] INR Coag (PPP) [Relative time] 1.1 {INR} Normal [facility] [...] #### C REAT, BUN, PP, CBC, LYTES ####[place] [id number] [address] PT Coag (PPP) [Time] 12.2 s Normal 9.0-12.9 [facility] Comment on above: Result Comment: A he matocrit value greater than 55% may lead to inaccurate results in coagulation testing. Patients having hematocrit values >55% require a special collection tube for coagulation studies. Please contact the laboratory at [phone] for redraw instructions. Performed By: #### C REAT, BUN, PP, CBC, LYTES ####[place] [id number] [facility] Complete Blood Count Auto Di ffon 08-21-2024 Basophils (Bld) [#/Vol] 0.0 10*3/uL Normal 0.0-0.2 [facility] Comment on above: Result Comment: PERF ORMED BY: [facility] [address] [address] PATHOLOGIST DIE LAY OUT WORKER JANA OLMEDO M.D. Performed By: #### C REAT, BUN, PP, CBC, LYTES ####[address] Basophils/100 WBC (Bld) 0.3 % Normal . [facility] Comment on above: Performed By: #### C REAT, BUN, PP, CBC, LYTES ####[address] Eosinophils (Bld) [#/Vol] 0.2 10*3/uL Normal 0.0-0.45 [facility] Comment on above: Performed By: #### C REAT, BUN, PP, CBC, LYTES ####[address] Eosinophils/100 WBC (Bld) 3.9 % Normal . [facility] Comment on above: Performed By: #### C REAT, BUN, PP, CBC, LYTES ####[address] Erythrocyte distribution width (RBC) [Ratio] 12.7 % Normal 11.9-15.3 [facility] Comment on above: Performed By: #### C REAT, BUN, PP, CBC, LYTES ####[address] Hematocrit (Bld) [Volume fraction] 42.5 % Normal 34.0-46.4 [facility] Comment on above: Performed By: #### C REAT, BUN, PP, CBC, LYTES ####[address] Hemoglobin (Bld) [Mass/Vol] 14.6 g/dL Normal 11.8-15.4 [facility] Comment on above: Performed By: #### C REAT, BUN, PP, CBC, LYTES ####[address] Lymphocytes (Bld) [#/Vol] 1.7 10*3/uL Normal 1.00-4.8 [facility] Comment on above: Performed By: #### C REAT, BUN, PP, CBC, LYTES ####[address] Lymphocytes/100 WBC (Bld) 35.0 % Normal . [facility] Comment on above: Performed By: #### C REAT, BUN, PP, CBC, LYTES ####[address] MCH (RBC) [Entitic mass] 30.8 pg Normal 24.7-34.3 [facility] Comment on above: Performed By: #### C REAT, BUN, PP, CBC, LYTES ####[address] MCV (RBC) [Entitic vol] 89.8 fL Normal 80-100 [facility] Comment on above: Performed By: #### C REAT, BUN, PP, CBC, LYTES ####[address] Mean Corpuscular HGB Conc 34.3 g/dL Normal 32.0-35.0 [facility] Comment on above: Performed By: #### C REAT, BUN, PP, CBC, LYTES ####[address] Monocytes (Bld) [#/Vol] 0.5 10*3/uL Normal 0.0-0.8 [facility] Comment on above: Performed By: #### C REAT, BUN, PP, CBC, LYTES ####[address] Monocytes/100 WBC (Bld) 10.9 % Normal . [facility] Comment on above: Performed By: #### C REAT, BUN, PP, CBC, LYTES ####[address] Neutrophils (Bld) [#/Vol] 2.5 10*3/uL Normal 1.8-7.7 [facility] Comment on above: Performed By: #### C REAT, BUN, PP, CBC, LYTES ####[address] Neutrophils/100 WBC (Bld) 49.9 % Normal . [facility] Comment on above: Performed By: #### C REAT, BUN, PP, CBC, LYTES ####[address] NRBC% 0.1 /100{WBC} Normal 0-0.5 [facility] Comment on above: Performed By: #### C REAT, BUN, PP, CBC, LYTES ####[address] Platelet mean volume (Bld) [Entitic vol] 7.7 fL Normal 6.3-10.7 [facility] Comment on above: Performed By: #### C REAT, BUN, PP, CBC, LYTES ####[address] Platelets (Bld) [#/Vol] 172 10*3/uL Normal 150-450 [facility] Comment on above: Performed By: #### C REAT, BUN, PP, CBC, LYTES ####[address] RBC (Bld) [#/Vol] 4.73 10*6/uL Normal 3.60-5.00 [facility] Comment on above: Performed By: #### C REAT, BUN, PP, CBC, LYTES ####[address] WBC (Bld) [#/Vol] 4.9 10*3/uL Normal 3.8-11.6 [facility] Comment on above: Performed By: #### C REAT, BUN, PP, CBC, LYTES ####[address] Creatinineon 08-21-2024 Creatinine [Mass/Vol] 0.61 mg/dL Normal 0.60-1.20 [facility] Comment on above: Performed By: #### C REAT, BUN, PP, CBC, LYTES ####[address] Creatinine Clr Calc Pharmacy 97.73 Normal [facility] Comment on above: Result Comment: PERF ORMED BY: [facility] [address] [place] [address] PATHOLOGIST DIE LAY OUT WORKER JANA OLMEDO M.D. Performed By: #### C REAT, BUN, PP, CBC, LYTES ####[facility] GFR/1.73 sq M.predicted MDRD (S/P/Bld) [Vol rate/Area] mL/min/{1.73_m2} Normal [facility] Comment on above: Performed By: #### C REAT, BUN, PP, CBC, LYTES ####[facility] ECG 12 lead ECGon 08-21-2024 ECG 12 lead ECG [facility] [address] [place] [address] [place] [address] Electrocardiograph Report Signed Patient: Jose Alberto Saleem MR#: [id number] : 1965 Acct:[id number] Age/Sex: 59 / F ADM Date: 08/20/24 Loc: Room: [address] [place] [address] Type: DIS IN Attending Dr: Kaiser Quijano [...] abnormality Abnormal ECG Confirmed by Bella Stein ([id number]) on 08/22/2024 11:33:52 PM Referred By: Bella Stein Electronically Signed By: Bella Stein Transcribed By: MUS Signed By Bella Stein MD 4 1969 Normal [facility] Electrolyteson 08-21-2024 Anion gap [Moles/Vol] 11.0 mmol/L Normal 6.0-15.0 [facility] Comment on above: Performed By: #### C REAT, BUN, PP, CBC, LYTES ####[facility] Chloride [Moles/Vol] 105 mmol/L Normal 98-107 [facility] Comment on above: Performed By: #### C REAT, BUN, PP, CBC, LYTES ####[facility] CO2 [Moles/Vol] 27.9 mmol/L Normal 21.0-31.0 The [facility] Comment on above: Performed By: #### C REAT, BUN, PP, CBC, LYTES ####[place] [id number] [address] Potassium [Moles/Vol] 3.9 mmol/L Normal 3.5-5.1 [facility] Comment on above: Performed By: #### C REAT, BUN, PP, CBC, LYTES ####[place] [address] [address] Sodium [Moles/Vol] 140 mmol/L Normal 136-145 [facility] Comment on above: Performed By: #### C REAT, BUN, PP, CBC, LYTES ####[place] [id number] [address] NM lia perf SPECT rest stron 08-20-2024 NM lia perf SPECT rest str [facility] [place] [address] Nuclear Medicine Report Signed Patient: Jose Alberto Saleem MR#: [id number] : 1965 Acct:[id number] Age/Sex: 59 / F ADM Date: 08/18/24 Loc: Room: [address] [place] [address] Type: ADM INOo Attending Dr: Chucky Dunn [...] Bella Stein M.D.08/20/2024 3:56 PM Dictation Location: [facility] [address] Transcribed By: BEN 08/20/241555 Dictated By: Bella Stein MD 08/20/241551 Signed By: 08/20/24 155 Normal [facility] A1C with Estimated Average G rebekahlio 08-19-2024 Glucose [Mass/Vol] 117 mg/dL Normal [facility] Comment on above: Result Comment: PERF ORMED BY: [place] [address] PATHOLOGIST DIE LAY OUT WORKER JANA OLMEDO M.D. Performed By: #### A 1C [facility] Dunia, HS TROP ####[place] [id number] [facility] HbA1c (Bld) [Mass fraction] 5.7 % High 4.3-5.6 [facility] Comment on above: Result Comment: Incr eased risk for diabetes: 5.7 - 6.4 diabetes: >6.4 glycemic control for adults with diabetes: <7.0 Performed By: #### A 1C [facility] Dunia, HS TROP ####[place] [id number] [facility] ECG 12 lead ECGon 08-19-2024 ECG 12 lead ECG [facility] [place] [address] Electrocardiograph Report Signed Patient: Jose Alberto Saleem MR#: [id number] : 1965 Acct:[id number] Age/Sex: 59 / F ADM Date: 08/18/24 Loc: 3T Room: [address] [place] [address] Type: ADM INOo Attending Dr: Chucky Dunn [...] wave abnormality Abnormal ECG Confirmed by Bella Stien ([id number]) on 08/21/2024 12:00:39 AM Referred By: Bella Stein Electronically Signed By: Bella Stein Transcribed By: MUS Signed By Bella Stein MD 4 0000 Normal [facility] ECG 12 lead ECG [facility] [place] [address] Electrocardiograph Report Signed Patient: Jose Alberto Saleem MR#: [id number] : 1965 Acct:[id number] Age/Sex: 59 / F ADM Date: 08/18/24 Loc: Room: [address] [place] [address] Type: ADM INOo Attending Dr: Chucky Dunn [...] Normal sinus rhythm Leftward axis Confirmed by Bridgett Monreal ([id number]) on 08/20/2024 11:52:24 PM Referred By: Bella Stein Electronically Signed By: Bridgett Monreal Transcribed By: MUS Signed By Bridgett Monreal MD 08/20/24 2352 Normal [facility] Troponin I High Sensitivityo n 08-19-2024 Troponin I High Sensitivity 4.6 pg/mL Normal 0.0-15.0 [facility] Comment on above: Result Comment: PERF ORMED BY: [place] [address] PATHOLOGIST DIE LAY OUT WORKER JANA OLMEDO M.D. Performed By: #### A 1C [facility] eA, HS TROP ####[facility] [id number] [place] [address] X-ray reportOrdered By: Anna Wick on 08-19-2024 Study report [facility] [address] [place] [address] [place] [address] XRay Report Signed Patient: Jose Alberto Saleem MR#: [id number] : 1965 Acct:[id number] Age/Sex: 59 / F ADM Date: 4 Loc: Room: [address] [place] [address] Type: ADM INOo Attending Dr: Donis Arroyo [...] Thelma Wick M.D.08/19/2024 12:10 AM Dictation Location: [place] [address] Transcribed By: [facility] 08/19/24 0010 Dictated By: Thelma Wick MD 11/18/24 2211 Signed By: 08/19/24 0010 [facility] Work Phone: Alanine aminotransferase [En zymatic activity/volume] in Serum or PlasmaOrdered By: Lynnette Chapman on 08-18-2024 ALT [Catalytic activity/Vol] Alanine aminotransferase [Enzymatic activity/volume] in Serum or Plasma 7-52 [facility] Albumin [Mass/volume] in Ser um or Plasma by Bromocresol green (BCG) dye binding methoOrdered By: Lynnette Chapman on 08-18-2024 Albumin BCG dye [Mass/Vol] Albumin [Mass/volume] in Serum or Plasma by Bromocresol green (BCG) dye binding metho 3.5-5.7 [facility] Alkaline phosphatase [Enzyma tic activity/volume] in Serum or PlasmaOrdered By: Lynnette Chapman on 08-18-2024 ALP [Catalytic activity/Vol] Alkaline phosphatase [Enzymatic activity/volume] in Serum or Plasma 34-104 [facility] Aspartate aminotransferase [ Enzymatic activity/volume] in Serum or PlasmaOrdered By: Lynnette Chapman on 08-18-2024 AST [Catalytic activity/Vol] Aspartate aminotransferase [Enzymatic activity/volume] in Serum or Plasma 13-39 [facility] B-Type Natriuretic Peptideon 08-18-2024 Natriuretic peptide B (Bld) [Mass/Vol] 31.0 pg/mL Normal 5-100 [facility] Comment on above: Result Comment: PERF ORMED BY: [place] [address] PATHOLOGIST DIE LAY OUT WORKER JANA OLMEDO M.D. Performed By: #### H S TROP, LIPASE, PT, BMP, HEPATIC, CK, CBC, BNP ####[place] [id number] [address] Basic Metabolic Panelon 08-01 Anion gap [Moles/Vol] 10.7 mmol/L Normal 6.0-15.0 [facility] Comment on above: Performed By: #### H S TROP, LIPASE, PT, BMP, HEPATIC, CK, CBC, BNP #### [facility] [address] [place] [address] [place] Performed By: #### H S TROP, LIPASE, PT, BMP, HEPATIC, CK, CBC, BNP ####[address] Calcium [Mass/Vol] 10.1 mg/dL Normal 8.6-10.3 [facility] Comment on above: Performed By: #### H S TROP, LIPASE, PT, BMP, HEPATIC, CK, CBC, BNP #### [address] Performed By: #### H S TROP, LIPASE, PT, BMP, HEPATIC, CK, CBC, BNP ####[address] Chloride [Moles/Vol] 102 mmol/L Normal 98-107 [facility] Comment on above: Performed By: #### H S TROP, LIPASE, PT, BMP, HEPATIC, CK, CBC, BNP #### [address] Performed By: #### H S TROP, LIPASE, PT, BMP, HEPATIC, CK, CBC, BNP ####[address] CO2 [Moles/Vol] 28.4 mmol/L Normal 21.0-31.0 [facility] Comment on above: Performed By: #### H S TROP, LIPASE, PT, BMP, HEPATIC, CK, CBC, BNP #### [address] Performed By: #### H S TROP, LIPASE, PT, BMP, HEPATIC, CK, CBC, BNP ####[address] Creatinine [Mass/Vol] 0.62 mg/dL Normal 0.60-1.20 [facility] Comment on above: Performed By: #### H S TROP, LIPASE, PT, BMP, HEPATIC, CK, CBC, BNP #### [address] Performed By: #### H S TROP, LIPASE, PT, BMP, HEPATIC, CK, CBC, BNP ####[place] [id number] [address] Creatinine Clr Calc Pharmacy 95.72 Normal [facility] Comment on above: Result Comment: PERF ORMED BY: [place] [address] PATHOLOGIST DIE LAY OUT WORKER JANA OLMEDO M.D. Performed By: #### H S TROP, LIPASE, PT, BMP, HEPATIC, CK, CBC, BNP #### [address] Performed By: #### H S TROP, LIPASE, PT, BMP, HEPATIC, CK, CBC, BNP ####[address] GFR/1.73 sq M.predicted MDRD (S/P/Bld) [Vol rate/Area] mL/min/{1.73_m2} Normal [facility] Comment on above: Performed By: #### H S TROP, LIPASE, PT, BMP, HEPATIC, CK, CBC, BNP #### [address] Performed By: #### H S TROP, LIPASE, PT, BMP, HEPATIC, CK, CBC, BNP ####[address] Glucose [Mass/Vol] 94 mg/dL Normal 70-100 [facility] Comment on above: Result Comment: [facility] Glucose Reference Range is dependent on time and content of last meal. Glucose of more than 200 mg/dL in a nonstressed, ambulatory subject supports the diagnosis of Diabetes Mellitus. ADA recommended reference range Performed By: #### H S TROP, LIPASE, PT, BMP, HEPATIC, CK, CBC, BNP #### [address] Performed By: #### H S TROP, LIPASE, PT, BMP, HEPATIC, CK, CBC, BNP ####[address] Potassium [Moles/Vol] 4.1 mmol/L Normal 3.5-5.1 [facility] Comment on above: Performed By: #### H S TROP, LIPASE, PT, BMP, HEPATIC, CK, CBC, BNP #### [facility] [address] Performed By: #### H S TROP, LIPASE, PT, BMP, HEPATIC, CK, CBC, BNP ####[facility] [id number] [address] Sodium [Moles/Vol] 137 mmol/L Normal 136-145 [facility] Comment on above: Performed By: #### H S TROP, LIPASE, PT, BMP, HEPATIC, CK, CBC, BNP #### [facility] [address] Performed By: #### H S TROP, LIPASE, PT, BMP, HEPATIC, CK, CBC, BNP ####[facility] [id number] [address] Urea nitrogen [Mass/Vol] 22 mg/dL Normal 7-25 [facility] Comment on above: Performed By: #### H S TROP, LIPASE, PT, BMP, HEPATIC, CK, CBC, BNP #### [facility] [address] Performed By: #### H S TROP, LIPASE, PT, BMP, HEPATIC, CK, CBC, BNP ####[facility] [id number] [address] Basophils Auto (Bld) [#/Vol] Ordered By: Lynnette Chapman on 08-18-2024 Basophils (Bld) [#/Vol] Automated basophil count 0.0-0.2 [facility] Basophils/100 WBC Auto (Bld) Ordered By: Lynnette Chapman on 08-18-2024 Basophils/100 WBC (Bld) Automated basophil % . [facility] Bilirubin.direct [Mass/volum e] in Serum or PlasmaOrdered By: Lynnette Chapman on 08-18-2024 Bilirubin.direct [Mass/Vol] Bilirubin.direct [Mass/volume] in Serum or Plasma 0.03-0.18 [facility] Bilirubin.total [Mass/volume ] in Serum or PlasmaOrdered By: Lynnette Chapman on 08-18-2024 Bilirubin [Mass/Vol] Bilirubin.total [Mass/volume] in Serum or Plasma 0.3-1.0 [facility] Calcium [Mass/volume] in Ser um or PlasmaOrdered By: Lynnette Chapman on 08-18-2024 Calcium [Mass/Vol] Calcium [Mass/volume ] in Serum or Plasma 8.6-10.3 [facility] Carbon dioxide, total [Moles /volume] in Serum or PlasmaOrdered By: Lynnette Chapman on 08-18-2024 CO2 [Moles/Vol] Carbon dioxide, tota l [Moles/volume] in Serum or Plasma 21.0-31.0 [facility] Chloride [Moles/volume] in S nina or PlasmaOrdered By: Lynnette Chapman on 08-18-2024 Chloride [Moles/Vol] Chloride [Moles/vol ume] in Serum or Plasma 98-107 [facility] Complete Blood Count Auto Di ffon 08-18-2024 Basophils (Bld) [#/Vol] 0.0 10*3/uL Normal 0.0-0.2 [facility] Comment on above: Result Comment: PERF ORMED BY: [place] [address] PATHOLOGIST DIE LAY OUT WORKER JANA OLMEDO M.D. Performed By: #### H S TROP, LIPASE, PT, BMP, HEPATIC, CK, CBC, BNP #### [facility] [address] Basophils/100 WBC (Bld) 0.7 % Normal . [facility] Comment on above: Performed By: #### H S TROP, LIPASE, PT, BMP, HEPATIC, CK, CBC, BNP #### [facility] [address] [place] [address] [place] Eosinophils (Bld) [#/Vol] 0.2 10*3/uL Normal 0.0-0.45 [facility] Comment on above: Performed By: #### H S TROP, LIPASE, PT, BMP, HEPATIC, CK, CBC, BNP #### [facility] [address] [place] [address] [place] Eosinophils/100 WBC (Bld) 3.5 % Normal . [facility] Comment on above: Performed By: #### H S TROP, LIPASE, PT, BMP, HEPATIC, CK, CBC, BNP #### [address] Erythrocyte distribution width (RBC) [Ratio] 12.6 % Normal 11.9-15.3 [facility] Comment on above: Performed By: #### H S TROP, LIPASE, PT, BMP, HEPATIC, CK, CBC, BNP #### [address] Hematocrit (Bld) [Volume fraction] 43.7 % Normal 34.0-46.4 [facility] Comment on above: Performed By: #### H S TROP, LIPASE, PT, BMP, HEPATIC, CK, CBC, BNP #### [address] Hemoglobin (Bld) [Mass/Vol] 15.1 g/dL Normal 11.8-15.4 [facility] Comment on above: Performed By: #### H S TROP, LIPASE, PT, BMP, HEPATIC, CK, CBC, BNP #### [address] Lymphocytes (Bld) [#/Vol] 2.2 10*3/uL Normal 1.00-4.8 [facility] Comment on above: Performed By: #### H S TROP, LIPASE, PT, BMP, HEPATIC, CK, CBC, BNP #### [address] Lymphocytes/100 WBC (Bld) 36.5 % Normal . [facility] Comment on above: Performed By: #### H S TROP, LIPASE, PT, BMP, HEPATIC, CK, CBC, BNP #### [address] MCH (RBC) [Entitic mass] 30.7 pg Normal 24.7-34.3 [facility] Comment on above: Performed By: #### H S TROP, LIPASE, PT, BMP, HEPATIC, CK, CBC, BNP #### [address] MCV (RBC) [Entitic vol] 88.8 fL Normal 80-100 [facility] Comment on above: Performed By: #### H S TROP, LIPASE, PT, BMP, HEPATIC, CK, CBC, BNP #### [address] Mean Corpuscular HGB Conc 34.5 g/dL Normal 32.0-35.0 [facility] Comment on above: Performed By: #### H S TROP, LIPASE, PT, BMP, HEPATIC, CK, CBC, BNP #### [address] Monocytes (Bld) [#/Vol] 0.6 10*3/uL Normal 0.0-0.8 [facility] Comment on above: Performed By: #### H S TROP, LIPASE, PT, BMP, HEPATIC, CK, CBC, BNP #### [address] Monocytes/100 WBC (Bld) 16.97 % Normal 0.00-20.00 [facility] Comment on above: Performed By: #### H S TROP, LIPASE, PT, BMP, HEPATIC, CK, CBC, BNP #### [address] Monocytes/100 WBC (Bld) 10.5 % Normal . [facility] Comment on above: Performed By: #### H S TROP, LIPASE, PT, BMP, HEPATIC, CK, CBC, BNP #### [address] Neutrophils (Bld) [#/Vol] 3.0 10*3/uL Normal 1.8-7.7 [facility] Comment on above: Performed By: #### H S TROP, LIPASE, PT, BMP, HEPATIC, CK, CBC, BNP #### [address] Neutrophils/100 WBC (Bld) 48.8 % Normal . [facility] Comment on above: Performed By: #### H S TROP, LIPASE, PT, BMP, HEPATIC, CK, CBC, BNP #### [facility] [address] NRBC% 0.1 /100{WBC} Normal 0-0.5 [facility] Comment on above: Performed By: #### H S TROP, LIPASE, PT, BMP, HEPATIC, CK, CBC, BNP #### [facility] [address] Platelet mean volume (Bld) [Entitic vol] 7.9 fL Normal 6.3-10.7 [facility] Comment on above: Performed By: #### H S TROP, LIPASE, PT, BMP, HEPATIC, CK, CBC, BNP #### [facility] [address] Platelets (Bld) [#/Vol] 204 10*3/uL Normal 150-450 [facility] Comment on above: Performed By: #### H S TROP, LIPASE, PT, BMP, HEPATIC, CK, CBC, BNP #### [address] RBC (Bld) [#/Vol] 4.92 10*6/uL Normal 3.60-5.00 [facility] Comment on above: Performed By: #### H S TROP, LIPASE, PT, BMP, HEPATIC, CK, CBC, BNP #### [address] WBC (Bld) [#/Vol] 6.1 10*3/uL Normal 3.8-11.6 [facility] Comment on above: Performed By: #### H S TROP, LIPASE, PT, BMP, HEPATIC, CK, CBC, BNP #### [facility] [address] Creatine Kinaseon 08-18-2024 CK [Catalytic activity/Vol] 53 U/L Normal 30-223 [facility] Comment on above: Performed By: #### H S TROP, LIPASE, PT, BMP, HEPATIC, CK, CBC, BNP ####[facility] [place] [address] Creatine kinase [Enzymatic a ctivity/volume] in Serum or PlasmaOrdered By: Lynnette Chapman on 08-18-2024 CK [Catalytic activity/Vol] Creatine kinase [Enzymatic activity/volume] in Serum or Plasma 30-223 [facility] Creatinine [Mass/volume] in Serum or PlasmaOrdered By: Lynnette Chapman on 08-18-2024 Creatinine [Mass/Vol] Creatinine [Mass/v olume] in Serum or Plasma 0.60-1.20 [facility] [facility] ECGon 08-18-2024 ECG 12 lead ECG [facility] Main [place] [id number] Electrocardiograph Report Signed Patient: Jose Alberto Saleem MR#: [id number] : 1965 Acct:[id number] Age/Sex: 59 / F ADM Date: 08/18/24 Loc: ER Room: Type: [facility] ER Attending Dr: Ordering Provider: Lynnette [...] wave abnormality Confirmed by Lynnette Chapman MD ([id number]) on 08/18/2024 11:22:40 PM Referred By: Electronically Signed By: Lynnette Chapman MD Transcribed By: MUS Signed By Lynnette Chapman MD 08/01 05/24 6286 Normal [facility] Eosinophils Auto (Bld) [#/Vo l]Ordered By: Lynnette Chapman on 08-18-2024 Eosinophils (Bld) [#/Vol] Automated eosinophil count 0.0-0.45 [facility] Eosinophils/100 WBC Auto (Bl d)Ordered By: Lynnette Chapman on 08-18-2024 Eosinophils/100 WBC (Bld) Automated eosinophil % . [facility] Erythrocyte distribution wid th Auto (RBC) [Ratio]Ordered By: Lynnette Chapman on 08-18-2024 Erythrocyte distribution width (RBC) [Ratio] Erythrocyte distribution width [Ratio] by Automated count 11.9-15.3 [facility] Globulin Calc (S) [Mass/Vol] Ordered By: Lynnette Chapman on 08-18-2024 Globulin (S) [Mass/Vol] Serum globulin measurement by calculation (mass/volume) [facility] Glucose [Mass/volume] in Ser um or PlasmaOrdered By: Lynnette Chapman on 08-18-2024 Glucose [Mass/Vol] Glucose [Mass/volume ] in Serum or Plasma 70-100 [facility] Comment on above: ADA recommended refe rence rangeRandom Glucose Reference Range is dependent on time and content of last meal. Glucose of more than 200 mg/dL in a nonstressed, ambulatory subject supports the diagnosis of Diabetes Mellitus. Hematocrit Auto (Bld) [Volum e fraction]Ordered By: Lynnette Chapman on 08-18-2024 Hematocrit (Bld) [Volume fraction] Hematocrit [Volume Fraction] of Blood by Automated count 34.0-46.4 [facility] Hemoglobin [Mass/volume] in BloodOrdered By: Lynnette Chapman on 08-18-2024 Hemoglobin (Bld) [Mass/Vol] Hemoglobin [Mass/volume] in Blood 11.8-15.4 [facility] Hepatic Panelon 08-18-2024 Albumin [Mass/Vol] 4.3 g/dL Normal 3.5-5.7 [facility] Comment on above: Performed By: #### H S TROP, LIPASE, PT, BMP, HEPATIC, CK, CBC, BNP ####[place] [id number] [address] Albumin/Globulin [Mass ratio] 1.7 {ratio} Normal [facility] Comment on above: Performed By: #### H S TROP, LIPASE, PT, BMP, HEPATIC, CK, CBC, BNP ####[place] [id number] [place] [id number] [facility] ALP [Catalytic activity/Vol] 89 U/L Normal 34-104 [facility] Comment on above: Performed By: #### H S TROP, LIPASE, PT, BMP, HEPATIC, CK, CBC, BNP ####[place] [id number] [place] [id number] [facility] ALT [Catalytic activity/Vol] 42 U/L Normal 7-52 [facility] Comment on above: Performed By: #### H S TROP, LIPASE, PT, BMP, HEPATIC, CK, CBC, BNP ####[address] AST [Catalytic activity/Vol] 31 U/L Normal 13-39 [facility] Comment on above: Performed By: #### H S TROP, LIPASE, PT, BMP, HEPATIC, CK, CBC, BNP ####[address] Bilirubin [Mass/Vol] 0.4 mg/dL Normal 0.3-1.0 [facility] Comment on above: Performed By: #### H S TROP, LIPASE, PT, BMP, HEPATIC, CK, CBC, BNP ####[address] Bilirubin,Indirect 0.3 mg/dL Normal [facility] Comment on above: Performed By: #### H S TROP, LIPASE, PT, BMP, HEPATIC, CK, CBC, BNP ####[address] Bilirubin.indirect [Mass/Vol] 0.10 mg/dL Normal 0.03-0.18 [facility] Comment on above: Performed By: #### H S TROP, LIPASE, PT, BMP, HEPATIC, CK, CBC, BNP ####[address] Globulin (S) [Mass/Vol] 2.6 g/dL Normal [facility] Comment on above: Performed By: #### H S TROP, LIPASE, PT, BMP, HEPATIC, CK, CBC, BNP ####[address] Protein [Mass/Vol] 6.9 g/dL Normal 6.4-8.9 [facility] Comment on above: Performed By: #### H S TROP, LIPASE, PT, BMP, HEPATIC, CK, CBC, BNP ####[place] [phone] [facility] INR in Platelet poor plasma by Coagulation assayOrdered By: Lynnette Chapman on 08-18-2024 INR Coag (PPP) [Relative time] INR in Platelet poor plasma by Coagulation assay [facility] Comment on above: INR Therapeutic Rang [...] erythrocytes in Blood by Automated coun 3.8-11.6 [facility] Lipaseon 08-18-2024 Lipase [Catalytic activity/Vol] 110.0 U/L High 11.0-82.0 [facility] Comment on above: Result Comment: PERF ORMED BY: [facility] [address] [place] [address] PATHOLOGIST DIE LAY OUT WORKER JANA OLMEDO M.D. Performed By: #### H S TROP, LIPASE, PT, BMP, HEPATIC, CK, CBC, BNP ####[facility] [id number] [place] [address] [facility] Lipase [Enzymatic activity/v olume] in Serum or PlasmaOrdered By: Lynnette Chapman on 08-18-2024 Lipase [Catalytic activity/Vol] Lipase [Enzymatic activity/volume] in Serum or Plasma High 11.0-82.0 [facility] Lymphocytes Auto (Bld) [#/Vo l]Ordered By: Lynnette Chapman on 08-18-2024 Lymphocytes (Bld) [#/Vol] Lymphocytes [#/volume] in Blood by Automated count 1.00-4.8 [facility] Lymphocytes/100 WBC Auto (Bl d)Ordered By: Lynnette Chapman on 08-18-2024 Lymphocytes/100 WBC (Bld) Lymphocytes/100 leukocytes in Blood by Automated count . [facility] MCH Auto (RBC) [Entitic mass ]Ordered By: Lynnette Chapman on 08-18-2024 MCH (RBC) [Entitic mass] MCH [Entitic mass] by Automated count 24.7-34.3 [facility] MCHC Auto (RBC) [Mass/Vol]Or dered By: Lynnette Chapman on 08-18-2024 MCHC (RBC) [Mass/Vol] MCHC [Mass/volume] by Automated count 32.0-35.0 [facility] MCV Auto (RBC) [Entitic vol] Ordered By: Lynnette Chapman on 08-18-2024 MCV (RBC) [Entitic vol] MCV [Entitic volume] by Automated count 80-100 [facility] Monocyte distribution width [Entitic volume] in Blood by AutomatedOrdered By: Lynnette Chapman on 08-18-2024 Monocyte distribution width Auto (Bld) [Entitic vol] Monocyte distribution width [Entitic volume] in Blood by Automated 0.00-20.00 [facility] Monocytes Auto (Bld) [#/Vol] Ordered By: Lynnette Chapman on 08-18-2024 Monocytes (Bld) [#/Vol] Automated blood monocyte count 0.0-0.8 [facility] Monocytes/100 WBC Auto (Bld) Ordered By: Lynnette Chapman on 08-18-2024 Monocytes/100 WBC (Bld) Automated monocyte % . [facility] Natriuretic peptide B [Mass/ Vol]Ordered By: Lynnette Chapman on 08-18-2024 Natriuretic peptide B (Bld) [Mass/Vol] BNP ser/plas 5-100 [facility] Neutrophils Auto (Bld) [#/Vo l]Ordered By: Lynnette Chapman on 08-18-2024 Neutrophils (Bld) [#/Vol] Neutrophils [#/volume] in Blood by Automated count 1.8-7.7 [facility] Neutrophils/100 WBC Auto (Bl d)Ordered By: Lynnette Chapman on 08-18-2024 Neutrophils/100 WBC (Bld) Automated neutrophil % . [facility] No Panel InformationOrdered By: Lynnette Chapman on 08-18-2024 Estimated GFR (CKD-EPI) > 60.0 mL/Min [facility] Creatinine Clearance (Chem 95.72 [facility] Nucleated erythrocytes [Pres ence] in Blood by Automated countOrdered By: Lynnette Chapman on 08-18-2024 Nucleated RBC Auto Ql (Bld) Nucleated erythrocytes [Presence] in Blood by Automated count 0-0.5 [facility] Platelet mean volume Auto (B ld) [Entitic vol]Ordered By: Lynnette Chapman on 08-18-2024 Platelet mean volume (Bld) [Entitic vol] Platelet mean volume [Entitic volume] in Blood by Automated count 6.3-10.7 [facility] Platelets Auto (Bld) [#/Vol] Ordered By: Lynnette Chapman on 08-18-2024 Platelets (Bld) [#/Vol] Platelets [#/volume] in Blood by Automated count 150-450 [facility] Potassium [Moles/volume] in Serum or PlasmaOrdered By: Lynnette Chapman on 08-18-2024 Potassium [Moles/Vol] Potassium [Moles/v olume] in Serum or Plasma 3.5-5.1 [facility] Protein [Mass/volume] in Ser um or PlasmaOrdered By: Lynnette Chapman on 08-18-2024 Protein [Mass/Vol] Protein [Mass/volume ] in Serum or Plasma 6.4-8.9 [facility] Prothrombin Time INRon 08-18 INR Coag (PPP) [Relative time] 1.0 {INR} Normal [facility] [...] heart valves: 3 - 4.5 PERFORMED BY: [facility] [address] [place] [address] PATHOLOGIST DIE LAY OUT WORKER JANA OLMEDO M.D. Performed By: #### H S TROP, LIPASE, PT, BMP, HEPATIC, CK, CBC, BNP #### [facility] [address] PT Coag (PPP) [Time] 11.7 s Normal 9.0-12.9 [facility] Comment on above: Result Comment: A he matocrit value greater than 55% may lead to inaccurate results in coagulation testing. Patients having hematocrit values >55% require a special collection tube for coagulation studies. Please contact the laboratory at [phone] for redraw instructions. Performed By: #### H S TROP, LIPASE, PT, BMP, HEPATIC, CK, CBC, BNP #### [facility] [address] [place] [id number] [facility] Prothrombin time (PT)Ordered By: Lynnette Chapman on 08-18-2024 PT Coag (PPP) [Time] Prothrombin time (PT) 9.0- 12.9 [facility] Comment on above: A hematocrit value g reater than 55% may lead to inaccurate results in coagulation testing. Patients having hematocrit values >55% require a special collection tube for coagulation studies. Please contact the laboratory at [phone] for redraw instructions. RBC Auto (Bld) [#/Vol]Ordere d By: Lynnette Chapman on 08-18-2024 RBC (Bld) [#/Vol] Erythrocytes [#/volu me] in Blood by Automated count 3.60-5.00 [facility] Serum or plasma albumin/glob ulin mass ratioOrdered By: Lynnette Chapman on 08-18-2024 Albumin/Globulin [Mass ratio] Serum or plasma albumin/globulin mass ratio [facility] Serum or plasma anion gap de terminationOrdered By: Lynnette Chapman on 08-18-2024 Anion gap [Moles/Vol] Serum or plasma an ion gap determination 6.0-15.0 [facility] Serum or plasma non-glucuron idated bilirubin measurement (mass/volume)Ordered By: Lynnette Chapman on 08-18-2024 Bilirubin.indirect [Mass/Vol] Serum or plasma non-glucuronidated bilirubin measurement (mass/volume) [facility] Sodium [Moles/volume] in Ser um or PlasmaOrdered By: Lynnette Chapman on 08-18-2024 Sodium [Moles/Vol] Sodium [Moles/volume ] in Serum or Plasma 136-145 [facility] Troponin I High Sensitivityo n 08-18-2024 Troponin I High Sensitivity 4.7 pg/mL Normal 0.0-15.0 [facility] Comment on above: Result Comment: PERF ORMED BY: [place] [address] PATHOLOGIST DIE LAY OUT WORKER JANA OLMEDO M.D. Performed By: #### H S TROP ####[place] [id number] [facility] Troponin I High Sensitivity 5.1 pg/mL Normal 0.0-15.0 [facility] Comment on above: Result Comment: PERF ORMED BY: [place] [address] PATHOLOGIST DIE LAY OUT WORKER JANA OLMEDO M.D. Performed By: #### H S TROP, LIPASE, PT, BMP, HEPATIC, CK, CBC, BNP ####[place] [id number] [facility] Troponin I.cardiac [Mass/vol ume] in Serum or Plasma by Detection limit <= 0.01 ng/Ordered By: Lynnette Chapman on 08-18-2024 Troponin I.cardiac DL <= 0.01 ng/mL [Mass/Vol] Troponin I.cardiac [Mass/volume] in Serum or Plasma by Detection limit <= 0.01 ng/ 0.0-15.0 [facility] Urea nitrogen [Mass/volume] in Serum or PlasmaOrdered By: Lynnette Chapman on 08-18-2024 Urea nitrogen [Mass/Vol] Urea nitrogen [Mass/volume] in Serum or Plasma 7-25 [facility] WBC Auto (Bld) [#/Vol]Ordere d By: Lynnette Chapman on 08-18-2024 WBC (Bld) [#/Vol] Leukocytes [#/volume ] in Blood by Automated count 3.8-11.6 [facility] XR chest 2V*on 08-18-2024 XR chest 2V* [facility] Main [address] [address] XRay Report Signed Patient: Jose Alberto Saleem MR#: [id number] : 1965 Acct:[id number] Age/Sex: 59 / F ADM Date: 08/18/24 Loc: Room: [address] [place] [address] Type: ADM INOo Attending Dr: Donis Arroyo [...] Thelma Wick M.D.08/19/2024 12:10 AM Dictation Location: [place] [address] Transcribed By: [facility] 08/19/24 0010 Dictated By: Thelma Wick MD 08/18/242210 Signed By: 08/19/24 0010 Normal [facility] Reminderson 08-05-2024 Reminders Reminders From: Magdalena Longoria To: EU - Administrative; Sent: 08/05/2024 13:08:24 EST Show up: 03/01/2025 13:08:00 EDT Subject: 1 yr reminder Due Date/Time: 08/01/2025 13:08:00 EDT Reminder/Recall Patient needs scheduled with [facility] for a 1 yr f/u with [facility]UB Normal [facility] Urology Office/Clinic Noteon 08-05-2024 Urology Office/Clinic [...] Myrbetriq from 25mg to 50mg qd Ordered: 41082 Measure Post Void residual urine and/or bladder capacity by US- non-imaging E&M of Est. Patient Moderate 30-39 Min 83645 Urnls Dip Stick Auto w/o Microscopy POC 21602 2. Urethral pain (R39.89: Other symptoms and [...] # 90 tab(s), Refills(s) 3, Pharmacy: [facility] [id number], 160, cm, 08/05/24 11:29:00 EST, Height/Length Dosing, 74.2, kg, 08/05/24 11:29:00 EST, Weight Dosing tamsulosin, 0.4 mg = 1 cap(s), Oral, Daily, # 90 cap(s), Refills(s) 3, Pharmacy: [facility], 160, cm, 08/05/24 11:29:00 EST, Height/Length Dosing, 74.2, kg, 08/05/24 11:29:00 EST, Weight Dosing Follow-up With When Contact Information JENNIFER MARTINO PA-C, URL Within 1 year Additional Instructions: Patient Education Kidney Stones, [id number] Problem List/Past Medical History Ongoing Anticoagulated Feeling (more content not included)... [facility] Comment on above: Result Comment: [...] wk f/u. Appointment due by 06/19/2024 in [place] with [facility] PT SCHEDULED JUL 03, 2024 [facility] Urology Office/Clinic Noteon 04-10-2024 Urology [...] E&M of Est. Patient High 40-54 Min 52365 Urnls Dip Stick Auto w/o Microscopy POC 30704 2. OAB (overactive bladder) (N32.81: Overactive bladder) [...] E&M of Est. Patient High 40-54 Min 86843 3. Urethral pain (R39.89: Other symptoms and [...] E&M of Est. Patient High 40-54 Min 57591 Orders: estradiol topical, See Instructions, 42.5 gm, Refill(s) 6, apply a pea-sized amount vaginally and around the urethra nightly x 3 weeks, then 3x per week thereafter, [facility] #[id number], 160, cm, 04/10/24 15:13:00 EDT, Height/Length Dosing, 74, kg, 04/10/24 15:13... mirabegron, 25 mg = 1 tab(s), Oral, Daily, do not fill both mirabegron AND vibegron. only fill whichever has lower co-pay., X 30 day(s), # 30 tab(s), Refills(s) 11, Pharmacy: [facility] #[id number], 160, cm, 04/10/24 15:13:00 EDT, Height/Length Dosing, 74, k... vibegron, 75 mg = 1 tab(s), Oral, Daily, X 30 day(s), # 30 tab(s), Refills(s) 11, Pharmacy: [facility] #[id number], 160, cm, 04/10/24 15:13:00 EDT, Height/Length Dosing, 74, kg, 04/10/24 15:13:00 EDT, Weight Dosing Total time spent reviewing previous notes/results/external documents, preparing the chart, conducting the encounter with the patient and family, ordering tests/medications, and documenting the encounter was 40 minutes. Follow-up With When Contact Information JENNIFER MARTINO PA-C, CARLOS Within 3 months [address] [facility] [place] [address] Additional Instructions: Patient Education Kidney Stones, [id number] Problem List/Past Medical History Ongoing Anticoagulated Feeling of incomplete b (more content not included)... Normal [facility] Comment on above: Result Comment: Elec tronically Signed By: JENNIFER MARTINO PA-C\.br\Date and Time Signed: 04/10/24 16:09 EDT Glucose Glucometer (BldC) [M ass/Vol]on 03-06-2024 Glucose [Mass/Vol] 79 mg/dL Normal 65-99 [facility] 36on 02-28-2024 36 Scheduled EGD/EUS 03/06/24 @1130, PTH, Dr. Cesar, [facility] ph: 02/29/24 @1000, #[id number], Clinic appt 02/27/24 w/ Sherita. Normal [facility] [id number] 2023 ALPHA-1 ANTITRYPSIN 145 mg/dL Normal 90-200 [facility] Comment on above: Result Comment: To c onvert to umol/L, multiply mg/dL by 0.185 Performed By: [facility] [address] [place] [id number] Safety Counselor: Sarwat Gorman MD, PhD CLIA Number: [id number] Performed By: #### L AB90 #### [facility] ([facility]) [address] [place] [address] ANAon 02-27-2024 CHAY TITER <1:40 Normal <=1:40 [facility] Comment on above: Result Comment: Test performed using BRIJESH IFA CHAY Hep-2 Test, a pre-standardized assay designed for the qualitative and semi-quantitative detection of antinuclear antibodies. Performed By: #### L [id number] #### [facility] ([facility]) [address] [place] [address] ANTI-SMOOTH MUSCLE ANTIBODY TITERon 02-27-2024 SMOOTH MUSCLE AB, IGG TITER <1:20 Normal <1:20 [facility] Comment on above: Result Comment: INTE RPRETIVE INFORMATION: Smooth Muscle Ab, IgG Titer Less than 1:20 ........ Negative - No antibody detected. 1:20 - 1:80 .......... Weak Positive - Suggest repeat in two to three weeks with fresh specimen. 1:160 or greater ...... Positive - Suggestive of autoimmune hepatitis or chronic active hepatitis. Performed By: [facility] [address] [place] [address] Safety Counselor: Sarwat Gorman MD, PhD CLIA Number: [id number] Performed By: #### L AB90 #### [facility] ([facility]) [address] [place] [address] CBC WITH AUTO DIFFERENTIALon 02-27-2024 Basophils (Bld) [#/Vol] 0.01 10*3/uL Normal 0.00-0.20 [facility] Comment on above: Performed By: #### L AB90 #### [facility] ([facility]) [address] [place] [address] Basophils/100 WBC (Bld) 0.2 % Normal 0.0-1.0 [facility] Comment on above: Performed By: #### L [id number] #### [facility] ([facility]) [address] [place] [address] Eosinophils (Bld) [#/Vol] 0.17 10*3/uL Normal 0.00-0.50 [facility] Comment on above: Performed By: #### L [id number] #### [facility] ([facility]) [address] [place] [address] Eosinophils/100 WBC (Bld) 3.2 % Normal 0.0-6.0 [facility] Comment on above: Performed By: #### L [id number] #### [facility] ([facility]) [address] [place] [address] Erythrocyte distribution width (RBC) [Ratio] 12.6 % Normal 11.5-15.0 [facility] Comment on above: Performed By: #### L [id number] #### [facility] ([facility]) [address] [place] [address] ERYTHROCYTE MEAN CORPUSCULAR HEMOGLOBIN CONCENTRATION (G/DL) BY AUTOMATED 33.6 g/dL Normal 32.0-35.0 [facility] Comment on above: Performed By: #### L AB90 #### [facility] ([facility]) [address] [place] [address] Hematocrit (Bld) [Volume fraction] 44.0 % Normal 36.0-48.0 [facility] Comment on above: Performed By: #### L AB90 #### [facility] ([facility]) [address] [place] [address] Hemoglobin (Bld) [Mass/Vol] 14.8 g/dL Normal 12.0-15.0 [facility] Comment on above: Performed By: #### L [id number] #### [facility] ([facility]) [address] [place] [address] Immature granulocytes (Bld) [#/Vol] 0.01 10*3/uL Normal 0.00-0.20 [facility] Comment on above: Performed By: #### L [id number] #### [facility] ([facility]) [address] [place] [address] Immature granulocytes/100 WBC (Bld) 0.2 % Normal 0.0-1.0 [facility] Comment on above: Performed By: #### L [id number] #### [facility] ([facility]) [address] [place] [address] Lymphocytes (Bld) [#/Vol] 1.19 10*3/uL Low 1.20-4.00 [facility] Comment on above: Performed By: #### L [id number] #### [facility] ([facility]) [address] [place] [address] Lymphocytes/100 WBC (Bld) 22.3 % Normal 20.0-45.0 [facility] Comment on above: Performed By: #### L [id number] #### [facility] ([facility]) [address] [place] [address] MCH (RBC) [Entitic mass] 30.2 pg Normal 27.0-33.0 [facility] Comment on above: Performed By: #### L [id number] #### [facility] ([facility]) [address] [place] [address] MCV (RBC) [Entitic vol] 89.8 fL Normal 82.0-98.0 [facility] Comment on above: Performed By: #### L [id number] #### [facility] ([facility]) [address] [place] [address] Monocytes (Bld) [#/Vol] 0.53 10*3/uL Normal 0.10-1.00 [facility] Comment on above: Performed By: #### L AB90 #### [facility] ([facility]) [address] [place] [address] Monocytes/100 WBC (Bld) 9.9 % Normal 5.0-12.0 [facility] Comment on above: Performed By: #### L [id number] #### [facility] ([facility]) [address] [place] [address] Neutrophils (Bld) [#/Vol] 3.42 10*3/uL Normal 1.60-7.60 [facility] Comment on above: Performed By: #### L [id number] #### [facility] ([facility]) [address] [place] [address] Neutrophils/100 WBC (Bld) 64.2 % Normal 40.0-72.0 [facility] Comment on above: Performed By: #### L [id number] #### [facility] ([facility]) [address] [place] [address] NRBC (PER 100 WBCS) BY AUTOMATED COUNT 0.0 % Normal 0 [facility] Comment on above: Performed By: #### L [id number] #### [facility] ([facility]) [address] [place] [address] PLATELETS (10*3/UL) IN BLOOD AUTOMATED COUNT 198 10*3/uL Normal 150-400 [facility] Comment on above: Performed By: #### L [id number] #### [facility] ([facility]) [address] [place] [address] RBC (Bld) [#/Vol] 4.90 10*6/uL Normal 3.80-5.00 [facility] Comment on above: Performed By: #### L [id number] #### [facility] ([facility]) [address] [place] [address] WBC (Bld) [#/Vol] 5.33 10*3/uL Normal 4.00-10.60 [facility] [facility] Comment on above: Performed By: #### L [id number] #### [facility] ([facility]) [address] [place] [address] COMPREHENSIVE METABOLIC PANE Curtis 02-27-2024 Albumin [Mass/Vol] 4.4 g/dL Normal 3.5-5.7 [facility] Comment on above: Performed By: #### L [id number] #### [facility] ([facility]) [address] [place] [address] ALP [Catalytic activity/Vol] 84 U/L Normal 34-104 [facility] Comment on above: Performed By: #### L [id number] #### [facility] ([facility]) [address] [place] [address] ALT [Catalytic activity/Vol] 43 U/L Normal 7-52 [facility] Comment on above: Performed By: #### L [id number] #### [facility] ([facility]) [address] [place] [address] Anion gap [Moles/Vol] 11 mmol/L Normal 7-20 [facility] Comment on above: Performed By: #### L [id number] #### [facility] ([facility]) [address] [place] [address] AST [Catalytic activity/Vol] 33 U/L Normal 13-39 [facility] Comment on above: Performed By: #### L [id number] #### [facility] ([facility]) [address] [place] [address] Bilirubin [Mass/Vol] 0.4 mg/dL Normal 0.3-1.0 [facility] Comment on above: Performed By: #### L [id number] #### [facility] ([facility]) [address] [place] [address] Calcium [Mass/Vol] 9.9 mg/dL Normal 8.6-10.3 [facility] Comment on above: Performed By: #### L [id number] #### [facility] ([facility]) [address] [place] [address] Chloride [Moles/Vol] 102 mmol/L Normal 98-107 [facility] Comment on above: Performed By: #### L [id number] #### [facility] ([facility]) [address] [place] [address] CO2 [Moles/Vol] 29 mmol/L Normal 21-31 [facility] Comment on above: Performed By: #### L [id number] #### [facility] (BE[facility]) [address] [place] [address] Creatinine [Mass/Vol] 0.62 mg/dL Normal 0.60-1.20 [facility] Comment on above: Performed By: #### L [id number] #### [facility] ([facility]) [address] [place] [address] GLOMERULAR FILTRATION RATE ML/MIN/1.73 SQ M.PREDICTED 102.5 mL/min/1.73m*2 Normal >60.0 [facility] Comment on above: Result Comment: [facility]???s estimated glomerular filtration rate (eGFR) [...] group of individuals. Performed By: #### L [id number] #### [facility] ([facility]) [address] [place] [address] Glucose [Mass/Vol] 90 mg/dL Normal 70-100 [facility] Comment on above: Performed By: #### L [id number] #### [facility] ([facility]) [address] [place] [address] Potassium [Moles/Vol] 4.2 mmol/L Normal 3.5-5.1 [facility] Comment on above: Performed By: #### L [id number] #### [facility] ([facility]) [address] [place] [address] Protein [Mass/Vol] 6.9 g/dL Normal 6.0-8.3 [facility] Comment on above: Performed By: #### L [id number] #### [facility] ([facility]) [address] [place] [address] Sodium [Moles/Vol] 138 mmol/L Normal 136-145 [facility] Comment on above: Performed By: #### L [id number] #### [facility] ([facility]) [address] [place] [address] Urea nitrogen [Mass/Vol] 27 mg/dL High 7-25 [facility] Comment on above: Performed By: #### L [id number] #### [facility] ([facility]ER) [address] [place] [address] UREA NITROGEN/CREATININE (MASS RATIO) IN SER/PLAS 43.5 Normal [facility] Comment on above: Performed By: #### L [id number] #### [facility] ([facility]AKER) [address] [place] [address] COPPER, SERUMon 02-27-2024 COPPER 125.0 ug/dL Normal 80.0-155.0 [facility] Comment on above: Result Comment: [...] developed and its performance characteristics determined by [employer]. It has not been cleared or approved by the US Food and Drug Administration. This test was performed in a CLIA certified laboratory and is intended for clinical purposes. Performed By: [facility] [address] [place] [address] Safety Counselor: Sarwat Gorman MD, PhD CLIA Number: [id number] Performed By: #### L [id number] #### [facility] ([facility]) [address] [place] [address] FERRITINon 02-27-2024 FERRITIN (NG/ML) IN SER/PLAS 32.0 ng/mL Normal 11.0-307.0 [facility] Comment on above: Performed By: #### L [id number] #### [facility] ([facility]) [address] [place] [address] FOLATEon 02-27-2024 FOLATE (NG/ML) IN SER/PLAS 39.0 ng/mL Normal 6.6-1000 [facility] Comment on above: Performed By: #### L [id number] #### [facility] ([facility]) [address] [place] [address] HEMOGLOBIN A1Con 02-27-2024 Glucose [Mass/Vol] 100 mg/dL Normal [facility] Comment on above: Performed By: #### L [id number] #### [facility] ([facility]) [address] [place] [address] HbA1c (Bld) [Mass fraction] 5.1 % Normal 4.0-6.0 [facility] Comment on above: Performed By: #### L [id number] #### [facility] ([facility]) [address] [place] [address] HEPATITIS PANEL, ACUTEon HEPATITIS A VIRUS IGM AB PRESENCE IN SER/PLAS Non-Reactive Normal Nonreactive [facility] Comment on above: Performed By: #### L [id number] #### [facility] ([facility]) [address] [place] [address] HEPATITIS B VIRUS CORE AB (PRESENCE) IN SER/PLAS BY IMM Non-Reactive Normal Nonreactive [facility] Comment on above: Performed By: #### L [id number] #### [facility] ([facility]) [address] [place] [address] HEPATITIS B VIRUS SURFACE AG PRESENCE IN SERUM Non-Reactive Normal Nonreactive [facility] Comment on above: Performed By: #### L [id number] #### [facility] ([facility]) [address] [place] [address] HEPATITIS C VIRUS AB PRESENCE IN SERUM Non-Reactive Normal Nonreactive [facility] Comment on above: Performed By: #### L [id number] #### [facility] ([facility]) [address] [place] [address] IGAon 02-27-2024 Magnesium [Mass/Vol] 108 mg/dL Normal 60-413 [facility] Comment on above: Performed By: #### L [id number] ####[facility] (BEAKER)[address] [place] [address] IGG 1, 2, 3, AND 4on 024 IgG subclass 1 (S) [Mass/Vol] 293 mg/dL Normal 240-1118 [facility] Comment on above: Result Comment: REFE RENCE INTERVAL: Immunoglobulin G Subclass 1 The total IgG (mg/dL) can be derived from the sum of the subclass IgG1, IgG2, IgG3, and IgG4 values. However, a confirmatory and more precise total IgG is available by the turbidimetric method of quantitation for total IgG. Refer to test Immunoglobulin G, Serum ([id number]). Access complete set of age- and/or gender-specific reference intervals for this test in the [employer] Test Directory ([employer]). Performed By: #### L [id number] ####[facility] ([facility])[address] [place] [address] IgG subclass 2 (S) [Mass/Vol] 160 mg/dL Normal 124-549 [facility] Comment on above: Result Comment: REFE RENCE INTERVAL: Immunoglobulin G Subclass 2 Access complete set of age- and/or gender-specific reference intervals for this test in the [employer] Test Directory ([employer]). Performed By: #### L [id number] ####[facility] ([facility])[address] [place] [address] IgG subclass 3 (S) [Mass/Vol] 32 mg/dL Normal 21-134 [facility] Comment on above: Result Comment: REFE RENCE INTERVAL: Immunoglobulin G Subclass 3 Access complete set of age- and/or gender-specific reference intervals for this test in the [employer] Test Directory ([employer]). Performed By: #### L [id number] ####[facility] ([facility])[address] [place] [address] IgG subclass 4 (S) [Mass/Vol] 21 mg/dL Normal 1-123 [facility] Comment on above: Result Comment: REFE RENCE INTERVAL: Immunoglobulin G Subclass 4 Access complete set of age- and/or gender-specific reference intervals for this test in the [facility] Test Directory ([employer]). Performed By: [facility] [address] [place] [address] Safety Counselor: Sarwat Gorman MD, PhD CLIA Number: [id number] Performed By: #### L [id number] ####[facility] ([facility])[address] [place] [address] IRON AND TIBCon 02-27-2024 IRON (UG/DL) IN SER/PLAS 56 ug/dL Normal 50-212 [facility] Comment on above: Performed By: #### L [id number] #### [facility] ([facility]) [address] [place] [address] IRON BINDING CAPACITY (UG/DL) IN SER/PLAS 364 ug/dL Normal 250-[address] [facility] Comment on above: Performed By: #### L [id number] #### [facility] ([facility]) [address] [place] [address] IRON BINDING CAPACITY.UNSATURATED (UG/DL) IN SER/PLAS 308.0 ug/dL Normal 155.0-355.[address] [facility] Comment on above: Performed By: #### L [id number] #### [facility] ([facility]) [address] [place] [address] IRON SATURATION (%) IN SER/PLAS 15 % Low 20-50 [facility] Comment on above: Performed By: #### L [id number] #### [facility] ([facility]) [address] [place] [address] LIPID PANELon 02-27-2024 CHOL/HDL 2.9 mg/dL Normal [facility] Comment on above: Performed By: #### L [id number] #### [facility] ([facility]) [address] [place] [address] Cholesterol [Mass/Vol] 111 mg/dL Low 120-200 [facility] Comment on above: Performed By: #### L [id number] #### [facility] ([facility]) [address] [place] [address] Magnesium [Mass/Vol] 144 mg/dL Normal 40-149 [facility] Comment on above: Result Comment: TRIG LYCERIDE REFERENCE RANGE: 20 YEARS AND OLDER CARDIOVASCULAR RISK LESS THAN 150 mg/dL LOW RISK 150 TO 199 mg/dL BORDERLINE RISK 200 mg/dL AND GREATER HIGH RISK Performed By: #### L [id number] #### [facility] ([facility]) [address] [place] [address] Magnesium [Mass/Vol] 44 mg/dL Normal 0-160 [facility] Comment on above: Performed By: #### L [id number] #### [facility] ([facility]) [address] [place] [address] Magnesium [Mass/Vol] 38 mg/dL Normal 23-92 [facility] Comment on above: Performed By: #### L [id number] #### [facility] ([facility]) [address] [place] [address] NON HDL CHOL. (LDL+VLDL) 73 Normal [facility] Comment on above: Performed By: #### L [id number] #### [facility] ([facility]) [address] [place] [address] TOTAL VLDL-C 29 mg/dL Normal 0-[address] [facility] Comment on above: Performed By: #### L [id number] #### [facility] ([facility]) [address] [place] [address] LIVER FIBROSIS CHRONIC VIRAL HEPATITISon 02-27-2024 [id number]-[id number] , FIBROMETER 328 mg/dL High 131-293 [facility] Comment on above: Performed By: #### L [id number] #### [facility] ([facility]) [address] [place] [address] ALT [Catalytic activity/Vol] 57 U/L High 5-40 [facility] Comment on above: Performed By: #### L [id number] #### [facility] ([facility]) [address] [place] [address] Amylase [Catalytic activity/Vol] 18 U/L Normal 7-33 [facility] Comment on above: Performed By: #### L [id number] #### [facility] (BEAKER) [address] [place] [address] AST [Catalytic activity/Vol] 41 U/L High 9-40 [facility] Comment on above: Performed By: #### L [id number] #### [facility] (BEAKER) [address] [place] [address] CIRRHOMETER PATIENT SCORE 0.08 Normal [facility] Comment on above: Performed By: #### L [id number] #### [facility] ([facility]) [address] [place] [address] EER FIBROMETER REPORT See Note Normal [facility] Comment on above: Result Comment: Auth orized individuals can access the [facility] Enhanced Report using the following link: [email or web address] Performed By: #### L [id number] #### [facility] ([facility]) [address] [place] [address] FIBROMETER INTERPRETATION See Report Normal [facility] Comment on above: Result Comment: [17] [13] INTERPRETIVE INFORMATION: Fibrometer Interpretation Calculations for the final report are based on accurate data for age, gender, and platelet count. If any of this information needs to be corrected, please contact [facility] Client Services to request a recalculation. Client [...] developed and its performance characteristics determined by [employer]. It has not been cleared or approved by the US Food and Drug Administration. This test was performed in a CLIA certified laboratory and is intended for clinical purposes. Performed By: [facility] [address] [place] [address] Safety Counselor: Sarwat Gorman MD, PhD CLIA Number: [id number] Performed By: #### L [id number] #### [facility] ([facility]) [address] [place] [address] FIBROMETER PATIENT SCORE 0.62 Normal [facility] Comment on above: Performed By: #### L [id number] #### [facility] ([facility]) [address] [place] [address] FIBROMETER PLATELET COUNT 198 k/uL Normal [facility] Comment on above: Performed By: #### L [id number] #### [facility] ([facility]) [address] [place] [address] FIBROMETER PROTHROMBIN INDEX 81 % Low 90-120 [facility] Comment on above: Performed By: #### L [id number] #### [facility] ([facility]) [address] [place] [address] FIBROSIS METAVIR CLASSIFICATION F2[F1-F3] Normal [facility] Comment on above: Result Comment: [...] F3 is possible Performed By: #### L [id number] #### [facility] ([facility]) [address] [place] [address] INFLAMETER METAVIR CLASSIFICATION A1/A2 Normal [facility] Comment on above: Result Comment: INTE RPRETIVE INFORMATION: [employer]eter Metavir Classification [employer] (activity score) comments A0/A1 Equal probability between A0 and A1 A1/A2 Equal probability between A1 and A2 A2/A3 Equal probability between A2 and A3 Performed By: #### L [id number] #### [facility] ([facility]) [address] [place] [address] INFLAMETER PATIENT SCORE 0.62 Normal [facility] Comment on above: Performed By: #### L [id number] #### [facility] ([facility]) [address] [place] [address] Urea nitrogen [Mass/Vol] 28 mg/dL High 7-20 [facility] Comment on above: Performed By: #### L [id number] #### [facility] ([facility]) [address] [place] [address] Labon 02-27-2024 Lab [id number] AngelikaDiana ttodalis 1965 F Date Provider Department Center 02/27/[address] [place] [address] MP LAB RESOURCE MP DRAW Medical [facility] Family History Problem Relation Age of Onset Hyperlipidemia Mother Hyperlipidemia Father Hyperlipidemia Brother Heart attack Brother Family Status - Relation Status Age at Mother Father Brother Brother Normal [facility] MITOCHONDRIAL ANTIBODIES, M2 on 02-27-2024 MITOCHONDRIAL M2 ANTIBODY 7.2 Units Normal 0.0-24.9 [facility] Comment on above: Result Comment: [...] does not rule out PBC. Performed By: [facility] [address] [place] [address] Safety Counselor: Sarwat Gorman MD, PhD MARILUIA Number: [id number] Performed By: #### L [id number] #### [facility] (ALDO) [address] [place] [address] Office Visiton 02-27-2024 Follow-up visit [id number] SaleemDiana orozco tte 1965 F Date Provider Department Center 02/27/2024 209-DANIELLE CESAR MP GI [facility] Family History Problem Relation Age of Onset Hyperlipidemia Mother Hyperlipidemia Father Hyperlipidemia Brother Heart attack Brother Family Status - Relation Status Age at Mother Father Brother Brother Level of Service:74933 [place] OFFICE/OUTPATIENT NEW MODERATE MDM 45 MINUTES (GC) Reason for Visit and Comments: New Patient [632] Pancreatitis [363048] Normal [facility] PROTIME-INRon 02-27-2024 INR IN PPP BY COAGULATION ASSAY 1.08 Normal 0.90-1.10 [facility] Comment on above: Result Comment: ACCC P [...] RANGE. CHEST 1995;108:231S-246S. Performed By: #### L [id number] #### [facility] ([facility]) [address] [place] [address] PROTHROMBIN TIME (PT) IN PPP BY COAGULATION ASSAY 14.0 Seconds Normal 12.3-14.8 [facility] Comment on above: Performed By: #### L [id number] #### [facility] ([facility]) [address] [place] [address] TISSUE TRANSGLUTAMINASE, IGA on 02-27-2024 TISSUE TRANSGLUTAMINASE, IGA <1.02 Normal 0.00-4.99 [facility] Comment on above: Result Comment: [...] indicate a response to therapy. Performed By: [facility] [address] [place] [address] Safety Counselor: Sarwat Gorman MD, PhD CLIA Number: [id number] Performed By: #### L [id number] #### [facility] ([facility]) [address] [place] [address] TSH3 REFLEX TO FT4on 024 THYROTROPIN (MIU/L) IN SER/PLAS BY DETECTION LIMIT <= 0.05 MIU/L 2.02 mIU/L Normal 0.34-5.60 [facility] Comment on above: Performed By: #### L [id number] ####[facility] ([facility])[address] [place] [address] VITAMIN B12on 02-27-2024 Cobalamin (Vitamin B12) [Mass/Vol] 1862 pg/mL High 180-914 [facility] Comment on above: Result Comment: REFE RENCE RANGES: 180-914 pg/mL Normal 145-179 pg/mL Indeterminate <145 pg/mL Deficient Performed By: #### L [id number] ####[facility] (BEAKER)[address] [place] [address] VITAMIN D 25 HYDROXYon 02-26 CALCIDIOL (25 [place] VITAMIN D3) (NG/ML) IN SER/PLAS 62.1 ng/mL Normal 30.0-80.0 [facility] Comment on above: Result Comment: >80. 0 Toxicity possible Performed By: #### L [id number] ####[facility] (BEAKER)[address] [place] [address] Lab Reportson 01-23-2024 Lab Reports [id number]#1.00TIF F [facility] Lab Reports [id number]#1.00TIF F [facility] Lab Reportson 01-22-2024 Lab Reports [id number] F [facility] Lab Reports [id number] F [facility] Lab Reports [id number]#1.00TIF [facility] RAD - MISCon 01-22-2024 RAD - MISC [id number]#1.00TIF [facility] Surgical Pathology Reporton 06-18-2023 Surgical Pathology Report (NOTE) Path Number: [id number] -- Diagnosis -- ENDOMETRIAL CURETTINGS: -BENIGN ENDOMETRIAL POLYP. Amparo Kim Electronically Signed Out 06/21/2023 Clinical Information Pre-op Diagnosis: POSTMENOPAUSAL BLEEDING, INCLUSION [...] Microscopic Description Microscopic examination performed. Processing Lab: [facility] [address] [place] [address] Interpretation Performed at [facility] [address] [place] [address] SURGICAL PATHOLOGY CONSULTATION Patient Name: JOSE ALBERTO SALEEM [facility] Rec: [id number] [facility] ANATOMIC PATHOLOGY [address] [facility]. [place], [place] [address] Normal [facility] US NON OB TRANSVAGINALon US NON OB [...] Ceruloplasminon 12-12-2022 Ceruloplasmin 30.6 mg/dL 19.0-39.0 mg/dL [facility] Other Ferritinon 12-12-2022 Ferritin [Mass/Vol] 43.1411593 ng/mL Normal 11.0 -306.8 ng/mL [facility] Other Hepatitis A Antibody Totalon 12-12-2022 Hepatitis A Antibody Total Negative . [facility] Other Hepatitis B Surface Antibody on 12-12-2022 Hepatitis B Surface Antibody Non-Reactive Non Reactive [facility] Other Immunoglobulin Javi 3 Immunoglobulin G 823 mg/dL 586-1602 mg/dL [facility] Quad Other Liver-Kidney Microsomal Abon 12-12-2022 Liver-Kidney Microsomal Ab 1.1 0.0-20.0 [facility] Other Mitochondrial (M2) Antibodyo n 12-12-2022 Mitochondrial (M2) Antibody <20.0 0.0-20.0 [facility] Other Smooth Muscle Antibodyon Smooth Muscle Antibody 5 0-19 [facility] Other MR MRCPon 11-10-2022 MR MRCP [facility] Other MR MRCP [facility] Other MR MRCP [address] [place] [address] Campus [facility] Other MR MRCP [address] [email or web address] Other MR MRCP MRI Report [facility] Other MR MRCP Signed [facility] Other MR MRCP Patient: Danika Saleem MR#: [id number] [place] [email or web address] Other MR MRCP [address] [facility] Quad Other MR MRCP : 1965 Acct:[id number] [facility] Other MR MRCP Age/Sex: 57 / F ADM Date: 11/10/22 [facility] Other MR MRCP Loc: MR Room: Type: [facility] Other MR MRCP Attending Dr: Evert salinas MD [facility] Other MR MRCP Copies to: Evert hay MD [facility] Other MR MRCP Ordering Provider: Marleny Bruno MD [facility] Other MR MRCP Date of Service: 11/10/22 [facility] Other MRCP MR/MR MRCP: Abdominal pain;Common bile duct dilatation;Elevated liver en [facility] Other MR MRCP MRCP [facility] Other MR MRCP CLINICAL DATA: [place] lipase. Abnormal outside abdominal CT [facility] Other MR MRCP COMPARISON: CT abdom en 10/16/2022 [facility] Other MR MRCP Multiecho imaging of the abdomen was performed along with radial imaging of the biliary tree. [facility] Other MR MRCP The gallbladder surgically absent. There is no significant intrahepatic biliary dilatation. The [employer] Other MR MRCP common duct is sligh tly prominent measuring up to 6 mm. It tapers toward the ampulla. No in [facility] Other MR MRCP traluminal filling defects are identified to suggest choledocholithiasis. The pancreatic duct is [facility] Other MR MRCP also borderline prominent measuring 2 - 3 mm. No intrahepatic masses are identified. No pancreatic [facility] Other MR MRCP abnormalities are no hayley. The spleen and adrenal glands are within normal limits. There is no [employer] Other MR MRCP hydronephrosis. Ther e are right renal cysts. There is no aortic aneurysm. No adenopathy or [facility] Other MR MRCP ascites is seen. The re is no dilated bowel within the [id number]. [facility] Other MR MRCP M R/MR MRCP [facility] Other MR MRCP IMPRESSION: [facility] Other MR MRCP SLIGHTLY PROMINENT COMMON DUCT, WITHOUT CHOLEDOCHOLITHIASIS. THIS MAY RELATE TO PREVIOUS [facility] Other MR MRCP CHOLECYSTECTOMY. [facility] Other MR MRCP RIGHT RENAL CYSTS. [facility] Other MR MRCP NO OTHER SIGNIFICANT MRI FINDINGS. [facility] Other MR MRCP Impression dictated by: Thelma Wick M.D.11/10/2022 7:00 PM [facility] Other MR MRCP Dictation Location: [address] [email or web address] Other MR MRCP Transcribed By: PWS 11/10/221899 [facility] Other MR MRCP Dictated By: Thelma Wick MD 11/10/22 [facility] Other MR MRCP Signed By: [facility] Other MR MRCP 11/10/22 [facility] Other Albumin [Mass/volume] in Ser um or PlasmaOrdered By: Imad Asaad on 11-01-2022 Albumin [Mass/Vol] 4.0 g/dL 3.2-5.5 [facility] Direct bilirubin measurement Ordered By: Imad Asaad on 11-01-2022 Bilirubin.direct [Mass/Vol] 0.1 mg/dL 0.0-0.4 [facility] Globulin Calc (S) [Mass/Vol] Ordered By: Imad Asaad on 11-01-2022 Globulin (S) [Mass/Vol] 2.5 g/dL [facility] Hepatic Panelon 11-01-2022 Albumin [Mass/Vol] 4.432385 g/dL Normal 3.2-5.5 g/dL [facility] [email or web address] Other ALT [Catalytic activity/Vol] 94 U/L High 10-60 U/L [employer] Other Bilirubin [Mass/Vol] 0.5909052 mg/dL Normal 0.3- 1.2 mg/dL [employer] Other Bilirubin.indirect [Mass/Vol] 0.5641499 mg/dL Normal 0.0-0.4 mg/dL [employer] Other Protein [Mass/Vol] 6.030017 g/dL Normal 6.1-7.9 g/dL [facility] [email or web address] Other Hepatic Panel 0.5 mg/dL [employer] Other Hepatic Panel 2.5 g/dL [employer] Other Protein [Mass/volume] in Ser um or PlasmaOrdered By: Imsara Bruno on 11-01-2022 Protein [Mass/Vol] 6.5 g/dL 6.1-7.9 [facility] Serum or plasma alanine li otransferase measurement without P-5'-P (enzymatic activiOrdered By: Imad Asaad on 11-01-2022 ALT No additional P-5'-P [Catalytic activity/Vol] 94 U/L 10-60 [facility] Serum or plasma albumin/glob ulin mass ratioOrdered By: Imad Asaad on 11-01-2022 Albumin/Globulin [Mass ratio] 1.6 {ratio} [facility] Serum or plasma alkaline monster sphatase measurement (enzymatic activity/volume)Ordered By: Imad Asaad on 11-01-2022 ALP [Catalytic activity/Vol] 93 U/L 32-92 [facility] Serum or plasma aspartate am inotransferase measurement (enzymatic activity/volume)Ordered By: Imad Asaad on 11-01-2022 AST [Catalytic activity/Vol] 66 U/L 10-42 [facility] Serum or plasma non-glucuron idated bilirubin measurement (mass/volume)Ordered By: Imad Asaad on 11-01-2022 Bilirubin.indirect [Mass/Vol] 0.5 mg/dL [facility] Serum or plasma total biliru bin measurement (mass/volume)Ordered By: Evert Asaad on 11-01-2022 Bilirubin [Mass/Vol] 0.6 mg/dL 0.3-1.[address] [facility] [address] ABDOMEN WO/W CONon 2022 CT [...] JAE WILSON Date: 2022-10-17 08:23 Normal [facility] AMMONIAon 10-09-2022 Ammonia (P) [Moles/Vol] 10 umol/L Critically low 11-32 [facility] Comment on above: Performed By: #### A MY #### [facility] [address] [place] [address] Dr. Ayden Cam AMYLASEon 10-09-2022 Amylase [Catalytic activity/Vol] 144 U/L Critically high 25-115 [facility] Comment on above: Performed By: #### L IPA #### [facility] [address] [place] [address] Dr. Ayden Cam CBC AUTO DIFFon 10-09-2022 BASO # 0.0 103/ul Normal 0.0-0.1 [facility] Comment on above: Performed By: #### C BC #### [facility] [address] [place] [address] Dr. Ayden Cam Basophils/100 WBC (Bld) 0.2 % Normal 0.2-2.0 [facility] Comment on above: Performed By: #### C BC #### [facility] [address] [place] [address] Dr. Ayden Cam EO # 0.2 103/ul Normal 0.0-0.7 [facility] Comment on above: Performed By: #### C BC #### [facility] [address] [place] [address] Dr. Ayden Cam Eosinophils/100 WBC (Bld) 3.3 % Normal 0.9-7.0 [facility] Comment on above: Performed By: #### C BC #### [facility] [address] [place] [address] Dr. Ayden Cam Erythrocyte distribution width (RBC) [Ratio] 12.1 % Normal 11.0-15.0 [facility] Comment on above: Performed By: #### C BC #### [facility] [address] [place] [address] Dr. Ayden Cam Hematocrit (Bld) [Volume fraction] 40.0 % Normal 36.0-48.0 [facility] Comment on above: Performed By: #### C BC #### [facility] [address] [place] [address] Dr. Ayden Cam Hemoglobin (Bld) [Mass/Vol] 14.2 g/dL Normal 12.0-16.0 [facility] Comment on above: Performed By: #### C BC #### [facility] [address] [place] [address] Dr. Ayden Cam IG # 0.01 10e3/ul Normal 0.00-0.03 [facility] Comment on above: Performed By: #### C BC #### [facility] [address] [place] [address] Dr. Ayden Cam IG % 0.2 % Normal 0.0-0.5 [facility] Comment on above: Performed By: #### C BC #### [facility] [address] [place] [address] Dr. Ayden Cam LYMPH # 1.5 103/ul Normal 1.2-3.8 [facility] Comment on above: Performed By: #### C BC #### [facility] [address] [place] [address] Dr. Ayden Cam Lymphocytes/100 WBC (Bld) 24.2 % Normal 20.5-60.0 [facility] Comment on above: Performed By: #### C BC #### [facility] [address] [place] [address] Dr. Ayden Cam MANUAL DIFF REQ NO Normal [facility] Comment on above: Performed By: #### C BC #### [facility] [address] [place] [address] Dr. Ayden Cam MCH (RBC) [Entitic mass] 30.0 pg Normal 26.7-34.0 [facility] Comment on above: Performed By: #### C BC #### [facility] [address] [place] [address] Dr. Ayden Cam MCHC (RBC) [Mass/Vol] 35.5 g/dL Critically high 29.9-35.2 [facility] Comment on above: Performed By: #### C BC #### [facility] [address] [place] [address] Dr. Ayden Cam MCV (RBC) [Entitic vol] 84.4 fL Normal 81.0-99.0 [facility] Comment on above: Performed By: #### C BC #### [facility] [address] [place] [address] Dr. Ayden Cam MONO # 0.6 103/ul Normal 0.3-0.8 [facility] Comment on above: Performed By: #### C BC #### [facility] [address] [place] [address] Dr. Ayden Cam Monocytes/100 WBC (Bld) 10.3 % Normal 1.7-12.0 [facility] Comment on above: Performed By: #### C BC #### [facility] [address] [place] [address] Dr. Ayden Cam NEUT # 3.7 103/ul Normal 1.4-6.5 [facility] Comment on above: Performed By: #### C BC #### [facility] [address] [place] [address] Dr. Ayden Cam Neutrophils/100 WBC (Bld) 61.8 % Normal 43.0-75.0 [facility] Comment on above: Performed By: #### C BC #### [facility] [address] [place] [address] Dr. Ayden Cam Platelet mean volume (Bld) [Entitic vol] 9.0 fL Critically low 9.5-13.5 [facility] Comment on above: Performed By: #### C BC #### [facility] [address] [place] [address] Dr. Ayden Cam PLT 191 103/ul Normal 150-450 [facility] Comment on above: Performed By: #### C BC #### [facility] [address] [place] [address] Dr. Ayden Cam RBC 4.74 106/ul Normal 4.20-5.40 [facility] Comment on above: Performed By: #### C BC #### [facility] [address] [place] [address] Dr. Ayden Cam WBC 6.0 103/ul Normal 4.0-11.0 [facility] Comment on above: Performed By: #### C BC #### [facility] [address] [place] [address] Dr. Ayden Cam LIPASEon 10-09-2022 Lipase [Catalytic activity/Vol] 168.0 U/L Normal 73.0-393.0 [facility] Comment on above: Performed By: #### L ACT #### [facility] [address] [place] [address] Dr. Ayden Cam PROF 14(COMP METB)on 023 Albumin [Mass/Vol] 3.6 g/dL Normal 3.4-5.0 [facility] Comment on above: Performed By: #### L IPA #### [facility] [address] [place] [address] Dr. Ayden Cam Albumin/Globulin [Mass ratio] 1.1 {ratio} Normal [facility] Comment on above: Performed By: #### L IPA #### [facility] [address] [place] [address] Dr. Ayden Cam ALP [Catalytic activity/Vol] 93 U/L Normal 46-116 [facility] Comment on above: Performed By: #### L IPA #### [facility] [address] [place] [address] Dr. Ayden Cam ALT [Catalytic activity/Vol] 52 U/L Normal 14-59 [facility] Comment on above: Performed By: #### L IPA #### [facility] [address] [place] [address] Dr. Ayden Cam Anion gap [Moles/Vol] 10.2 mmol/L Normal [facility] Comment on above: Performed By: #### L IPA #### [facility] [address] [place] [address] Dr. Ayden Cam AST [Catalytic activity/Vol] 33 U/L Normal 15-37 [facility] Comment on above: Performed By: #### L IPA #### [facility] [address] [place] [address] Dr. Ayden Cam Bilirubin [Mass/Vol] 0.3 mg/dL Normal 0.2-1.0 [facility] Comment on above: Performed By: #### L IPA #### [facility] [address] [place] [address] Dr. Ayden Cam Calcium [Mass/Vol] 9.4 mg/dL Normal 8.5-10.1 [facility] Comment on above: Performed By: #### L IPA #### [facility] [address] [place] [address] Dr. Ayden Cam Chloride [Moles/Vol] 99 mmol/L Normal 98-107 [facility] Comment on above: Performed By: #### L IPA #### [facility] [address] [address] [address] Ayden Cam CO2 [Moles/Vol] 33.7 mmol/L Critically high 21.0-32.0 [facility] Comment on above: Performed By: #### L IPA #### [facility] [address] [address] [address] Ayden Cam Creatinine [Mass/Vol] 0.62 mg/dL Normal 0.55-1.02 [facility] Comment on above: Performed By: #### L IPA #### [facility] [address] [address] [address] Ayden Cam EGFR-AF OMANI >60 Normal >=60 [facility] Comment on above: Performed By: #### L IPA #### [facility] [address] [address] [address] Ayden Cam EGFR-NON AF OMANI >60 Normal >=60 [facility] Comment on above: Performed By: #### L IPA #### [facility] [address] [address] [address] Ayden Cam Globulin (S) [Mass/Vol] 3.4 g/dL Normal [facility] Comment on above: Performed By: #### L IPA #### [facility] [address] [address] [address] Ayden Cam Glucose [Mass/Vol] 105 mg/dL Normal 74-106 [facility] Comment on above: Performed By: #### L IPA #### [facility] [address] [address] [address] Ayden Cam Potassium [Moles/Vol] 3.9 mmol/L Normal 3.5-5.1 [facility] Comment on above: Performed By: #### L IPA #### [facility] [address] [address] [address] Ayden Cam Protein [Mass/Vol] 7.0 g/dL Normal 6.4-8.2 [facility] Comment on above: Performed By: #### L IPA #### [facility] [address] [place] [address] Dr. Ayden Cam Sodium [Moles/Vol] 139 mmol/L Normal 136-145 [facility] Comment on above: Performed By: #### L IPA #### [facility] [address] [place] [address] Dr. Ayden Cam Urea nitrogen [Mass/Vol] 28.0 mg/dL Critically high 7.0-18.0 [facility] Comment on above: Performed By: #### L IPA #### [facility] [address] [place] [address] Dr. Ayden Cam Urea nitrogen/Creatinine [Mass ratio] 45.2 mg/mg Normal [facility] Comment on above: Performed By: #### L IPA #### [facility] [address] [place] [address] Dr. Ayden Cam AMMONIAon 10-06-2022 Ammonia (P) [Moles/Vol] 16 umol/L Normal 11-32 [facility] Comment on above: Performed By: #### A MM #### [facility] [address] [place] [address] Dr. Ayden Cam AMYLASEon 10-06-2022 Amylase [Catalytic activity/Vol] 189 U/L Critically high 25-115 [facility] Comment on above: Performed By: #### L IPA #### [facility] [address] [place] [address] Dr. Ayden Cam CBC AUTO DIFFon 10-06-2022 BASO # 0.0 103/ul Normal 0.0-0.1 [facility] Comment on above: Performed By: #### C BC #### [facility] [address] [place] [address] Dr. Ayden Cam Basophils/100 WBC (Bld) 0.2 % Normal 0.2-2.0 [facility] Comment on above: Performed By: #### C BC #### [facility] [address] [place] [address] Dr. Ayden Cam EO # 0.3 103/ul Normal 0.0-0.7 [facility] Comment on above: Performed By: #### C BC #### [facility] [address] [place] [address] Dr. Ayden Cam Eosinophils/100 WBC (Bld) 5.2 % Normal 0.9-7.0 [facility] Comment on above: Performed By: #### C BC #### [facility] [address] [place] [address] Dr. Ayden Cam Erythrocyte distribution width (RBC) [Ratio] 12.3 % Normal 11.0-15.0 [facility] Comment on above: Performed By: #### C BC #### [facility] [address] [place] [address] Dr. Ayden Cam Hematocrit (Bld) [Volume fraction] 36.9 % Normal 36.0-48.0 [facility] Comment on above: Performed By: #### C BC #### [facility] [address] [place] [address] Dr. Ayden Cam Hemoglobin (Bld) [Mass/Vol] 12.4 g/dL Normal 12.0-16.0 [facility] Comment on above: Performed By: #### C BC #### [facility] [address] [place] [address] Dr. Ayden Cam IG # 0.01 10e3/ul Normal 0.00-0.03 [facility] Comment on above: Performed By: #### C BC #### [facility] [address] [place] [address] Dr. Ayden Cam IG % 0.2 % Normal 0.0-0.5 [facility] Comment on above: Performed By: #### C BC #### [facility] [address] [place] [address] Dr. Ayden Cam LYMPH # 1.8 103/ul Normal 1.2-3.8 [facility] Comment on above: Performed By: #### C BC #### [facility] [address] [place] [address] Dr. Ayden Cam Lymphocytes/100 WBC (Bld) 31.3 % Normal 20.5-60.0 [facility] Comment on above: Performed By: #### C BC #### [facility] [address] [place] [address] Dr. Ayden Cam MANUAL DIFF REQ NO Normal [facility] Comment on above: Performed By: #### C BC #### [facility] [address] [place] [address] Dr. Ayden Cam MCH (RBC) [Entitic mass] 30.0 pg Normal 26.7-34.0 [facility] Comment on above: Performed By: #### C BC #### [facility] [address] [place] [address] Dr. Ayden Cam MCHC (RBC) [Mass/Vol] 33.6 g/dL Normal 29.9-35.2 [facility] Comment on above: Performed By: #### C BC #### [facility] [address] [place] [address] Dr. Ayden Cam MCV (RBC) [Entitic vol] 89.1 fL Normal 81.0-99.0 [facility] Comment on above: Performed By: #### C BC #### [facility] [address] [place] [address] Dr. Ayden Cam MONO # 0.6 103/ul Normal 0.3-0.8 [facility] Comment on above: Performed By: #### C BC #### [facility] [address] [place] [address] Dr. Ayden Cam Monocytes/100 WBC (Bld) 10.1 % Normal 1.7-12.0 [facility] Comment on above: Performed By: #### C BC #### [facility] [address] [place] [address] Dr. Ayden Cam NEUT # 3.1 103/ul Normal 1.4-6.5 [facility] Comment on above: Performed By: #### C BC #### [facility] [address] [place] [address] Dr. Ayden Cam Neutrophils/100 WBC (Bld) 53.0 % Normal 43.0-75.0 [facility] Comment on above: Performed By: #### C BC #### [facility] [address] [address] [address] Ayden Cam Platelet mean volume (Bld) [Entitic vol] 9.4 fL Critically low 9.5-13.5 [facility] Comment on above: Performed By: #### C BC #### [facility] [address] [address] [address] Ayden Cam PLT 153 103/ul Normal 150-450 [facility] Comment on above: Performed By: #### C BC #### [facility] [address] [place] [address] Dr. Ayden Cam RBC 4.14 106/ul Critically low 4.20-5.[address] [facility] Comment on above: Performed By: #### C BC #### [facility] [address] [place] [address] Dr. Ayden Cam WBC 5.8 103/ul Normal 4.0-11.0 [facility] Comment on above: Performed By: #### C BC #### [facility] [address] [place] [address] Dr. Ayden Cam LIPASEon 10-06-2022 Lipase [Catalytic activity/Vol] 166.0 U/L Normal 73.0-393.0 [facility] Comment on above: Performed By: #### L IPA #### [facility] [address] [place] [address] Dr. Ayden Cam LIVER PROFILEon 10-06-2022 Albumin [Mass/Vol] 3.2 g/dL Critically low 3.4-5.0 [facility] Comment on above: Performed By: #### L IPA #### [facility] [address] [place] [address] Dr. Ayden Cam Albumin/Globulin [Mass ratio] 1.3 {ratio} Normal [facility] Comment on above: Performed By: #### L IPA #### [facility] [address] [place] [address] Dr. Ayden Cam ALP [Catalytic activity/Vol] 88 U/L Normal 46-116 [facility] Comment on above: Performed By: #### L IPA #### [facility] [address] [address] [address] Ayden Cam ALT [Catalytic activity/Vol] 66 U/L Critically high 14-59 [facility] Comment on above: Performed By: #### L IPA #### [facility] [address] [address] [address] Ayden Cam AST [Catalytic activity/Vol] 39 U/L Critically high 15-37 [facility] Comment on above: Performed By: #### L IPA #### [facility] [address] [address] [address] Ayden Cam BILI, CONJUGATED 0.1 mg/dL Normal 0.0-0.2 [facility] Comment on above: Performed By: #### L IPA #### [facility] [address] [address] [address] Ayden Cam Bilirubin [Mass/Vol] 0.4 mg/dL Normal 0.2-1.0 [facility] Comment on above: Performed By: #### L IPA #### [facility] [address] [place] [address] Dr. Ayden Cam Globulin (S) [Mass/Vol] 2.4 g/dL Normal [facility] Comment on above: Performed By: #### L IPA #### [facility] [address] [address] [address] Ayden Cam Protein [Mass/Vol] 5.6 g/dL Critically low 6.4-8.2 [facility] Comment on above: Performed By: #### L IPA #### [facility] [address] [address] [address] Ayden Cam PROF CHEM 8 (BAS METB)on Anion gap [Moles/Vol] 6.8 mmol/L Normal [facility] Comment on above: Performed By: #### L IPA #### [facility] [address] [place] [address] Dr. Ayden Cam Calcium [Mass/Vol] 8.6 mg/dL Normal 8.5-10.1 [facility] Comment on above: Performed By: #### L IPA #### [facility] [address] [address] [address] Ayden Cam Chloride [Moles/Vol] 102 mmol/L Normal 98-107 [facility] Comment on above: Performed By: #### L IPA #### [facility] [address] [place] [address] Dr. Ayden Cam CO2 [Moles/Vol] 32.6 mmol/L Critically high 21.0-32.0 [facility] Comment on above: Performed By: #### L IPA #### [facility] [address] [address] [address] Ayden Cam Creatinine [Mass/Vol] 0.61 mg/dL Normal 0.55-1.02 [facility] Comment on above: Performed By: #### L IPA #### [facility] [address] [place] [address] Dr. Ayden Cam EGFR-AF OMANI >60 Normal >=60 [facility] Comment on above: Performed By: #### L IPA #### [facility] [address] [place] [address] Dr. Ayden Cam EGFR-NON AF OMANI >60 Normal >=60 [facility] Comment on above: Performed By: #### L IPA #### [facility] [address] [address] [address] Ayden Cam Glucose [Mass/Vol] 91 mg/dL Normal 74-106 [facility] Comment on above: Performed By: #### L IPA #### [facility] [address] [address] [address] Ayden Cam Potassium [Moles/Vol] 3.4 mmol/L Critically low 3.5-5.1 [facility] Comment on above: Performed By: #### L IPA #### [facility] [facility] [address] [place] [address] Dr. Ayden Cam Sodium [Moles/Vol] 138 mmol/L Normal 136-145 [facility] Comment on above: Performed By: #### L IPA #### [facility] [address] [place] [address] Dr. Ayden Cam Urea nitrogen [Mass/Vol] 13.0 mg/dL Normal 7.0-18.0 [facility] Comment on above: Performed By: #### L IPA #### [facility] [address] [place] [address] Dr. Ayden Cam Urea nitrogen/Creatinine [Mass ratio] 21.3 mg/mg Normal [facility] Comment on above: Performed By: #### L IPA #### [facility] [address] [place] [address] Dr. Ayden Cam AMMONIAon 10-05-2022 Ammonia (P) [Moles/Vol] 10 umol/L Critically low 11-32 [facility] Comment on above: Performed By: #### A MM #### [facility] [address] [place] [address] Dr. Ayden Cam AMYLASEon 10-05-2022 Amylase [Catalytic activity/Vol] 109 U/L Normal 25-115 [facility] Comment on above: Performed By: #### A MY #### [facility] [address] [place] [address] Dr. Ayden Cam CBC AUTO DIFFon 10-05-2022 BASO # 0.0 103/ul Normal 0.0-0.1 [facility] Comment on above: Performed By: #### L IPA #### [facility] [address] [place] [address] Dr. Ayden Cam Basophils/100 WBC (Bld) 0.3 % Normal 0.2-2.0 [facility] Comment on above: Performed By: #### L IPA #### [facility] [address] [place] [address] Dr. Ayden Cam EO # 0.3 103/ul Normal 0.0-0.7 [facility] Comment on above: Performed By: #### L IPA #### [facility] [address] [place] [address] Dr. Ayden Cam Eosinophils/100 WBC (Bld) 4.3 % Normal 0.9-7.0 [facility] Comment on above: Performed By: #### L IPA #### [facility] [address] [place] [address] Dr. Ayden Cam Erythrocyte distribution width (RBC) [Ratio] 12.2 % Normal 11.0-15.0 [facility] Comment on above: Performed By: #### L IPA #### [facility] [address] [place] [address] Dr. Ayden Cam Hematocrit (Bld) [Volume fraction] 38.9 % Normal 36.0-48.0 [facility] Comment on above: Performed By: #### L IPA #### [facility] [address] [place] [address] Dr. Ayden Cam Hemoglobin (Bld) [Mass/Vol] 12.8 g/dL Normal 12.0-16.0 [facility] Comment on above: Performed By: #### L IPA #### [facility] [address] [place] [address] Dr. Ayden Cam IG # 0.01 10e3/ul Normal 0.00-0.03 [facility] Comment on above: Performed By: #### L IPA #### [facility] [address] [place] [address] Dr. Ayden Cam IG % 0.2 % Normal 0.0-0.5 [facility] Comment on above: Performed By: #### L IPA #### [facility] [address] [place] [address] Dr. Ayden Cam LYMPH # 1.9 103/ul Normal 1.2-3.8 [facility] Comment on above: Performed By: #### L IPA #### [facility] [address] [place] [address] Dr. Ayden Cam Lymphocytes/100 WBC (Bld) 31.4 % Normal 20.5-60.0 [facility] Comment on above: Performed By: #### L IPA #### [facility] [address] [place] [address] Dr. Ayden Cam MANUAL DIFF REQ NO Normal [facility] Comment on above: Performed By: #### L IPA #### [facility] [address] [place] [address] Dr. Ayden Cam MCH (RBC) [Entitic mass] 29.6 pg Normal 26.7-34.0 [facility] Comment on above: Performed By: #### L IPA #### [facility] [address] [place] [address] Dr. Ayden Cam MCHC (RBC) [Mass/Vol] 32.9 g/dL Normal 29.9-35.2 [facility] Comment on above: Performed By: #### L IPA #### [facility] [address] [place] [address] Dr. Ayden Cam MCV (RBC) [Entitic vol] 89.8 fL Normal 81.0-99.0 [facility] Comment on above: Performed By: #### L IPA #### [facility] [address] [place] [address] Dr. Ayden Cam MONO # 0.6 103/ul Normal 0.3-0.8 [facility] Comment on above: Performed By: #### L IPA #### [facility] [address] [place] [address] Dr. Ayden Cam Monocytes/100 WBC (Bld) 10.1 % Normal 1.7-12.0 [facility] Comment on above: Performed By: #### L IPA #### [facility] [address] [place] [address] Dr. yAden Cam NEUT # 3.2 103/ul Normal 1.4-6.5 [facility] Comment on above: Performed By: #### L IPA #### [facility] [address] [place] [address] Dr. Ayden Cam Neutrophils/100 WBC (Bld) 53.7 % Normal 43.0-75.0 [facility] Comment on above: Performed By: #### L IPA #### [facility] [address] [place] [address] Dr. Ayden Cam Platelet mean volume (Bld) [Entitic vol] 9.7 fL Normal 9.5-13.5 [facility] Comment on above: Performed By: #### L IPA #### [facility] [address] [place] [address] Dr. Ayden Cam PLT 168 103/ul Normal 150-450 [facility] Comment on above: Performed By: #### L IPA #### [facility] [address] [place] [address] Dr. Ayden Cam RBC 4.33 106/ul Normal 4.20-5.40 [facility] Comment on above: Performed By: #### L IPA #### [facility] [address] [place] [address] Dr. Ayden Cam WBC 6.0 103/ul Normal 4.0-11.0 [facility] Comment on above: Performed By: #### L IPA #### [facility] [address] [place] [address] Dr. Ayden Cam LIPASEon 10-05-2022 Lipase [Catalytic activity/Vol] 151.0 U/L Normal 73.0-393.0 [facility] Comment on above: Performed By: #### L IPA #### [facility] [address] [place] [address] Dr. Ayden Cam LIVER PROFILEon 10-05-2022 Albumin [Mass/Vol] 3.2 g/dL Critically low 3.4-5.0 Th e [facility] Comment on above: Performed By: #### L ACT #### [facility] [address] [place] [address] Dr. Ayden Cam Albumin/Globulin [Mass ratio] 1.1 {ratio} Normal [facility] Comment on above: Performed By: #### L ACT #### [facility] [address] [place] [address] Dr. Ayden Cam ALP [Catalytic activity/Vol] 82 U/L Normal 46-116 [facility] Comment on above: Performed By: #### L ACT #### [facility] [address] [place] [address] Dr. Ayden Cam ALT [Catalytic activity/Vol] 70 U/L Critically high 14-59 [facility] Comment on above: Performed By: #### L ACT #### [facility] [address] [place] [address] Dr. Ayden Cam AST [Catalytic activity/Vol] 36 U/L Normal 15-37 [facility] Comment on above: Performed By: #### L ACT #### [facility] [address] [address] [address] Ayden Cam BILI, CONJUGATED 0.1 mg/dL Normal 0.0-0.2 [facility] Comment on above: Performed By: #### L ACT #### [facility] [address] [address] [address] Ayden Cam Bilirubin [Mass/Vol] 0.3 mg/dL Normal 0.2-1.0 [facility] Comment on above: Performed By: #### L ACT #### [facility] [address] [address] [address] Ayden Cam Globulin (S) [Mass/Vol] 3.0 g/dL Normal [facility] Comment on above: Performed By: #### L ACT #### [facility] [address] [place] [address] Dr. Ayden Cam Protein [Mass/Vol] 6.2 g/dL Critically low 6.4-8.2 [facility] Comment on above: Performed By: #### L ACT #### [facility] [address] [address] [address] Ayden Cam PROF CHEM 8 (BAS METB)on Anion gap [Moles/Vol] 9.5 mmol/L Normal [facility] Comment on above: Performed By: #### B MP #### [facility] [address] [place] [address] Dr. Ayden Cam Calcium [Mass/Vol] 8.9 mg/dL Normal 8.5-10.1 [facility] Comment on above: Performed By: #### B MP #### [facility] [address] [place] [address] Dr. Ayden Cam Chloride [Moles/Vol] 105 mmol/L Normal 98-107 [facility] Comment on above: Performed By: #### B MP #### [facility] [address] [place] [address] Dr. Ayden Cam CO2 [Moles/Vol] 29.6 mmol/L Normal 21.0-32.0 [facility] Comment on above: Performed By: #### B MP #### [facility] [address] [place] [address] Dr. Ayden Cam Creatinine [Mass/Vol] 0.56 mg/dL Normal 0.55-1.02 [facility] Comment on above: Performed By: #### B MP #### [facility] [address] [place] [address] Dr. Ayden Cam EGFR-AF OMANI >60 Normal >=60 [facility] Comment on above: Performed By: #### B MP #### [facility] [address] [address] [address] Ayden Cam EGFR-NON AF OMANI >60 Normal >=60 [facility] Comment on above: Performed By: #### B MP #### [facility] [address] [place] [address] Dr. Ayden Cam Glucose [Mass/Vol] 88 mg/dL Normal 74-106 [facility] Comment on above: Performed By: #### B MP #### [facility] [address] [place] [address] Dr. Ayden Cam Potassium [Moles/Vol] 4.1 mmol/L Normal 3.5-5.1 [facility] Comment on above: Performed By: #### B MP #### [facility] [address] [place] [address] Dr. Ayden Cam Sodium [Moles/Vol] 140 mmol/L Normal 136-145 [facility] Comment on above: Performed By: #### B MP #### [facility] [address] [place] [address] Dr. Ayden Cam Urea nitrogen [Mass/Vol] 15.0 mg/dL Normal 7.0-18.0 [facility] Comment on above: Performed By: #### B MP #### [facility] [address] [place] [address] Dr. Ayden Cam Urea nitrogen/Creatinine [Mass ratio] 26.8 mg/mg Normal [facility] Comment on above: Performed By: #### B MP #### [facility] [address] [address] [address] Ayden Cam US Jhony 10-05-2022 US [...] RONAN TORIBIO Date: 2022-10-05 09:52 Normal [facility] XR KUB 1 VIEWon 10-05-2022 XR [...] by: RONAN TORIBIO Date: 2022-10-05 09:55 Normal [facility] AMYLASEon 10-04-2022 Amylase [Catalytic activity/Vol] 124 U/L Critically high 25-115 [facility] Comment on above: Performed By: #### L IPA, COLE, CMP #### [facility] [address] [place] [address] Dr. Ayden Cam CBC AUTO DIFFon 10-04-2022 BASO # 0.0 103/ul Normal 0.0-0.1 [facility] Comment on above: Performed By: #### L IPA #### [facility] [address] [place] [address] Dr. Ayden Cam Basophils/100 WBC (Bld) 0.3 % Normal 0.2-2.0 [facility] Comment on above: Performed By: #### L IPA #### [facility] [address] [place] [address] Dr. Ayden Cam EO # 0.2 103/ul Normal 0.0-0.7 [facility] Comment on above: Performed By: #### L IPA #### [facility] [address] [place] [address] Dr. Ayden Cam Eosinophils/100 WBC (Bld) 2.9 % Normal 0.9-7.0 [facility] Comment on above: Performed By: #### L IPA #### [facility] [address] [place] [address] Dr. Ayden Cam Erythrocyte distribution width (RBC) [Ratio] 12.3 % Normal 11.0-15.0 [facility] Comment on above: Performed By: #### L IPA #### [facility] [address] [place] [address] Dr. Ayden Cam Hematocrit (Bld) [Volume fraction] 42.0 % Normal 36.0-48.0 [facility] Comment on above: Performed By: #### L IPA #### [facility] [address] [place] [address] Dr. Ayden Cam Hemoglobin (Bld) [Mass/Vol] 14.3 g/dL Normal 12.0-16.0 [facility] Comment on above: Performed By: #### L IPA #### [facility] [address] [place] [address] Dr. Ayden Cam IG # 0.02 10e3/ul Normal 0.00-0.03 [facility] Comment on above: Performed By: #### L IPA #### [facility] [address] [place] [address] Dr. Ayden Cam IG % 0.3 % Normal 0.0-0.5 [facility] Comment on above: Performed By: #### L IPA #### [facility] [address] [place] [address] Dr. Ayden Cam LYMPH # 1.7 103/ul Normal 1.2-3.8 [facility] Comment on above: Performed By: #### L IPA #### [facility] [address] [place] [address] Dr. Ayden Cam Lymphocytes/100 WBC (Bld) 22.5 % Normal 20.5-60.0 [facility] Comment on above: Performed By: #### L IPA #### [facility] [address] [place] [address] Dr. Ayden Cam MANUAL DIFF REQ NO Normal [facility] Comment on above: Performed By: #### L IPA #### [facility] [address] [place] [address] Dr. Ayden Cam MCH (RBC) [Entitic mass] 30.1 pg Normal 26.7-34.0 [facility] Comment on above: Performed By: #### L IPA #### [facility] [address] [place] [address] Dr. Ayden Cam MCHC (RBC) [Mass/Vol] 34.0 g/dL Normal 29.9-35.2 [facility] Comment on above: Performed By: #### L IPA #### [facility] [address] [place] [address] Dr. Ayden Cam MCV (RBC) [Entitic vol] 88.4 fL Normal 81.0-99.0 [facility] Comment on above: Performed By: #### L IPA #### [facility] [address] [place] [address] Dr. Ayden Cam MONO # 0.5 103/ul Normal 0.3-0.8 [facility] Comment on above: Performed By: #### L IPA #### [facility] [address] [place] [address] Dr. Ayden Cam Monocytes/100 WBC (Bld) 6.0 % Normal 1.7-12.0 [facility] Comment on above: Performed By: #### L IPA #### [facility] [address] [place] [address] Dr. Ayden Cam NEUT # 5.2 103/ul Normal 1.4-6.5 [facility] Comment on above: Performed By: #### L IPA #### [facility] [address] [place] [address] Dr. Ayden Cam Neutrophils/100 WBC (Bld) 68.0 % Normal 43.0-75.0 [facility] Comment on above: Performed By: #### L IPA #### [facility] [address] [place] [address] Dr. Ayden Cam Platelet mean volume (Bld) [Entitic vol] 9.6 fL Normal 9.5-13.5 [facility] Comment on above: Performed By: #### L IPA #### [facility] [address] [place] [address] Dr. Ayden Cam PLT 183 103/ul Normal 150-450 [facility] Comment on above: Performed By: #### L IPA #### [facility] [address] [place] [address] Dr. Ayden Cam RBC 4.75 106/ul Normal 4.20-5.40 [facility] Comment on above: Performed By: #### L IPA #### [facility] [address] [place] [address] Dr. Ayden Cam WBC 7.6 103/ul Normal 4.0-11.0 [facility] Comment on above: Performed By: #### L IPA #### [facility] [address] [place] [address] Dr. Ayden Cam [facility]on SARS-CoV-2 (COVID-19) RNA LOWELL+probe Ql (Unsp spec) Not detected Normal NOT DETECTED [facility] Comment on above: Result Comment: When [...] for this test is supported by the [place] of [employer] and Human Service's declaration that [...] used). Performed By: #### L IPA #### [facility] [address] [place] [address] Dr. Ayden Cam ER URINE PROFILEon 3 Bilirubin Ql (U) Negative Normal NEGATIVE [facility] Comment on above: Performed By: #### L ACT #### [facility] [address] [place] [address] Dr. Ayden Cam Clarity (U) CLEAR Normal CLEAR [facility] Comment on above: Performed By: #### L ACT #### [facility] [address] [place] [address] Dr. Ayden Cam Color (U) LT. YELLOW Normal YELLOW [facility] Comment on above: Performed By: #### L ACT #### [facility] [address] [place] [address] Dr. Ayden Cam ERUAHD A micrscopic examina tion will be performed if indicated. Normal [facility] Comment on above: Performed By: #### L ACT #### [facility] [address] [place] [address] Dr. Ayden Cam Glucose Ql (U) Negative Normal NEGATIVE [facility] Comment on above: Performed By: #### L ACT #### [facility] [address] [place] [address] Dr. Ayden Cam Hemoglobin Ql (U) Negative Normal NEGATIVE [facility] Comment on above: Performed By: #### L ACT #### [facility] [address] [place] [address] Dr. Ayden Cam Ketones Ql (U) Negative Normal NEGATIVE [facility] Comment on above: Performed By: #### L ACT #### [facility] [address] [place] [address] Dr. Ayden Cam LEUKOCYTES Negative Normal NEGATIVE [facility] Comment on above: Performed By: #### L ACT #### [facility] [address] [place] [address] Dr. Ayden Cam Nitrite Ql (U) Negative Normal NEGATIVE [facility] Comment on above: Performed By: #### L ACT #### [facility] [address] [place] [address] Dr. Ayden Cam pH (U) 8.5 [pH] Normal 5-9 [facility] Comment on above: Performed By: #### L ACT #### [facility] [address] [place] [address] Dr. Ayden Cam SPEC GRAVITY 1.015 Normal 1.005-<=1.[address] [place] [address] Comment on above: Performed By: #### L ACT #### [facility] [address] [place] [address] Dr. Ayden Cam UA PROTEIN Negative Normal NEGATIVE/ TRACE [facility] Comment on above: Performed By: #### L ACT #### [facility] [address] [place] [address] Dr. Ayden Cam UR MICRO IND NOT INDICATED Normal [facility] Comment on above: Performed By: #### L ACT #### [facility] [address] [place] [address] Dr. Ayden Cam Urobilinogen Qn (U) 0.2 {Peggy'U}/dL Normal 0.2 - 1. 0 [facility] Comment on above: Performed By: #### L ACT #### [facility] [address] [place] [address] Dr. Ayden Cam LACTATE/LACTIC ACIDon 2022 Lactate [Moles/Vol] 0.8 mmol/L Normal 0.4-1.9 [facility] Comment on above: Performed By: #### L ACT #### [facility] [address] [address] [address] Ayden Cam LIPASEon 10-04-2022 Lipase [Catalytic activity/Vol] 170.0 U/L Normal 73.0-393.0 [facility] Comment on above: Performed By: #### L ACT #### [facility] [address] [place] [address] Dr. Ayden Cam PROF 14(COMP METB)on 023 Albumin [Mass/Vol] 3.8 g/dL Normal 3.4-5.0 [facility] Comment on above: Performed By: #### L ACT #### [facility] [address] [place] [address] Dr. Ayden Cam Albumin/Globulin [Mass ratio] 1.1 {ratio} Normal [facility] Comment on above: Performed By: #### L ACT #### [facility] [address] [place] [address] Dr. Ayden Cam ALP [Catalytic activity/Vol] 101 U/L Normal 46-116 [facility] Comment on above: Performed By: #### L ACT #### [facility] [address] [place] [address] Dr. Ayden Cam ALT [Catalytic activity/Vol] 94 U/L Critically high 14-59 [facility] Comment on above: Performed By: #### L ACT #### [facility] [address] [place] [address] Dr. Ayden Cam Anion gap [Moles/Vol] 11.1 mmol/L Normal [facility] Comment on above: Performed By: #### L ACT #### [facility] [address] [place] [address] Dr. Aydne Cam AST [Catalytic activity/Vol] 59 U/L Critically high 15-37 [facility] Comment on above: Performed By: #### L ACT #### [facility] [address] [place] [address] Dr. Ayden Cam Bilirubin [Mass/Vol] 0.3 mg/dL Normal 0.2-1.0 [facility] Comment on above: Performed By: #### L ACT #### [facility] [address] [address] [address] Ayden Cam Calcium [Mass/Vol] 9.5 mg/dL Normal 8.5-10.1 [facility] Comment on above: Performed By: #### L ACT #### [facility] [address] [address] [address] Ayden Cam Chloride [Moles/Vol] 99 mmol/L Normal 98-107 [facility] Comment on above: Performed By: #### L ACT #### [facility] [address] [address] [address] Ayden Cam CO2 [Moles/Vol] 29.7 mmol/L Normal 21.0-32.0 [facility] Comment on above: Performed By: #### L ACT #### [facility] [address] [place] [address] Dr. Ayden Cam Creatinine [Mass/Vol] 0.61 mg/dL Normal 0.55-1.02 [facility] Comment on above: Performed By: #### L ACT #### [facility] [address] [address] [address] Ayden Cam EGFR-AF OMANI >60 Normal >=60 [facility] Comment on above: Performed By: #### L ACT #### [facility] [address] [place] [address] Dr. Ayden Cam EGFR-NON AF OMANI >60 Normal >=60 [facility] Comment on above: Performed By: #### L ACT #### [facility] [address] [address] [address] Ayden Cam Globulin (S) [Mass/Vol] 3.4 g/dL Normal [facility] Comment on above: Performed By: #### L ACT #### [facility] [address] [address] [address] Ayden Cam Glucose [Mass/Vol] 111 mg/dL Critically high 74-106 [facility] Comment on above: Performed By: #### L ACT #### [facility] [address] [address] [address] Ayden Cam Potassium [Moles/Vol] 3.8 mmol/L Normal 3.5-5.1 [facility] Comment on above: Performed By: #### L ACT #### [facility] [address] [address] [address] Ayden Cam Protein [Mass/Vol] 7.2 g/dL Normal 6.4-8.2 [facility] Comment on above: Performed By: #### L ACT #### [facility] [address] [address] [address] Ayden Cam Sodium [Moles/Vol] 136 mmol/L Normal 136-145 [facility] Comment on above: Performed By: #### L ACT #### [facility] [address] [address] [address] Ayden Cam Urea nitrogen [Mass/Vol] 23.0 mg/dL Critically high 7.0-18.0 [facility] Comment on above: Performed By: #### L ACT #### [facility] [address] [address] [address] Ayden Cam Urea nitrogen/Creatinine [Mass ratio] 37.7 mg/mg Normal [facility] Comment on above: Performed By: #### L ACT #### [facility] [address] [address] [address] Ayden Cam TROPONIN, HIGH SENSITIVITYon 10-04-2022 HSTROP 8.9 pg/mL Normal 4.0-51.3 [facility] Comment on above: Result Comment: CUT- OFF POINTS HAVE BEEN ESTABLISHED BASED ON THE FOURTH UNIVERSAL DEFINITIONS OF MYOCARDIAL INFARCTION. THE UPPER REFERENCE LIMIT (URL) OF TROPONIN, DEFINED THE 99TH PERCENTILE OF cTnI DISTRIBUTION IN A REFERENCE POPULATION, HAS BEEN CONFIRMED THE DECISION THRESHOLD FOR [place] DIAGNOSIS. Performed By: #### L ACT #### [facility] [address] [address] [address] Ayden Cam LIPID PROFILEon 09-19-2022 CHOL-HDL RATIO NORM SEE BELOW Normal [facility] Comment on above: Result Comment: 3.3 - 4.4 LOW RISK 4.4 - 7.1 AVERAGE RISK 7.1 - 11.0 MODERATE RISK >11.0 HIGH RISK Performed By: #### L IPA #### [facility] [address] [address] [address] Ayden Cam Cholesterol [Mass/Vol] 116 mg/dL Normal <=200 [facility] Comment on above: Performed By: #### L IPA #### [facility] [address] [address] [address] Ayden Cam Cholesterol in HDL [Mass/Vol] 59 mg/dL Normal 40-60 [facility] Comment on above: Performed By: #### L IPA #### [facility] [address] [address] [address] Ayden Cam Cholesterol in LDL [Mass/Vol] 34.0 mg/dL Normal [facility] Comment on above: Performed By: #### L IPA #### [facility] [address] [address] [address] Ayden Cam Cholesterol.total/Cho lesterol in HDL [Mass ratio] 2.0 {ratio} Normal [facility] Comment on above: Performed By: #### L IPA #### [facility] [address] [address] [address] Ayden Cam HDL NORMAL > or = 60 mg/dl - LO W CARDIOVASCULAR RISK <40 mg/dl - HIGH CARDIOVASCULAR RISK Normal [facility] Comment on above: Performed By: #### L IPA #### [facility] [address] [address] [address] Ayden Cam LDL CALC NORMAL SEE BELOW Normal [facility] Comment on above: Result Comment: <100 mg/dl OPTIMAL 100 - 129 mg/dl NEAR OR ABOVE OPTIMAL 130 - 159 mg/dl BORDERLINE HIGH 160 - 189 mg/dl HIGH >190 mg/dl VERY HIGH Performed By: #### L IPA #### [facility] [address] [address] [address] Ayden Cam Triglyceride [Mass/Vol] 115 mg/dL Normal <=150 [facility] Comment on above: Performed By: #### L IPA #### [facility] [address] [address] [address] Ayden Cam VLDL CALC 23.0 mg/dL Normal [facility] Comment on above: Performed By: #### L IPA #### [facility] [address] [address] [address] Ayden Cam VITAMIN D 25 OHon 09-19-2022 VIT D 25-OH 89.3 ng/mL Normal [facility] Comment on above: Performed By: #### V ITAD #### [facility] [address] [address] [address] Ayden Cam VIT D RANGES SEE BELOW Normal [facility] Comment on above: Result Comment: <20 ng/mL Vit D deficient 20 - <30 ng/mL Vit D insufficient 30 - 100 ng/mL Vit D sufficient >100 ng/mL Potential Toxicity Performed By: #### V ITAD #### [facility] [address] [address] [address] Ayden Cam Office Visit (Cardiology)on 08-15-2022 Follow-up visit Diagnoses/Problems Assessed Atherosclerosis of coronary artery of [place] heart without angina pectoris (414.01) (I25.10) History of coronary artery bypass graft (V45.81) (Z95.1) Ischemic cardiomyopathy (414.8) (I25.5) Hyperlipidemia (272.4) (E78.5) Essential hypertension, benign (401.1) (I10) Never a smoker Overweight with body mass index (BMI) of 26 to 26.9 in adult (278.02,V85.22) (E66.3,Z68.26) Paroxysmal SVT (supraventricular tachycardia) (427.0) (I47.1) Orders Atherosclerosis of coronary artery of [place] heart without angina pectoris, Essential hypertension, benign, Hyperlipidemia Basic Metabolic Panel; Status:Active - Retrospective Authorization; Requested for:[id number]; Lipid Panel; Status:Active - Retrospective Authorization; Requested for:[id number]; Overweight with body mass index (BMI) of 26 to 26.9 in adult Healthy Weight Tips; Status:Complete - Retrospective Authorization; Done: [id number] Some eating tips that can help you lose weight.; Status:Complete - Retrospective Authorization; Done: [id number] SocHx: Never a smoker Tobacco Use Screening; Status:Complete; Done: [id number] Patient Instructions Please bring all medicines, vitamins, [...] OM branch 2013. Last ischemic evaluation in 2016 was normal. She will likely need another [...] CHEST PAIN.CALL 911 IF PAIN PERSISTS. Nyamyc [id number] UNIT/GM External Powderapply topically to affected area twice a day if needed PreserVision AREDS Oral CapsuleTAKE 2 CAPSULE Twice daily Tamsulosin HCl - 0.4 MG Oral CapsuleTAKE 1 CAPSULE Daily Allergies Medication Baclofen TABS Adverse Reaction; Shortness of breath;; Recorded By: Jnenifer Jean; 08/17/2021 9:42:39 AM Bactrim TABS Allergy; [...] no s (more content not included)... Normal [employer] Tobacco Screening.on Adult depression screening assessment No [facility] [employer] 250 DO Work Phone: Fall risk assessment a) No falls within the last year [facility] [employer] 250 DO Work Phone: Tobacco use status [facility] b) No [facility] [employer] 250 DO Work Phone: MRI Ankle [...] by Wilder Arango on 08/01/2022 1102 Normal [facility] [employer] Tobacco Screening.on 021 Tobacco use status [facility] b) No -[facility] 250 DO Work Phone: Vital Signs Date Time Vital Sign Value Performing Clinician Facility 09-05-2024 09:53-0500 Body height 160 cm Celso Garibay Mevio Work Phone: [facility] 09-05-2024 09:53-0500 Body mass index (BMI) [Ratio] 30.11 kg/m2 Celso Garibay DO Work Phone: [facility] 09-05-2024 09:53-0500 Body weight 77.11 kg Celso Garibay Mevio Work Phone: [facility] 09-05-2024 09:53-0500 Diastolic blood pressure 80 mm[Hg] Celso Garibay DO Work Phone: [facility] 09-05-2024 09:53-0500 Heart rate 66 /min Celso Garibay Mevio Work Phone: [facility] 09-05-2024 09:53-0500 Systolic blood pressure 118 mm[Hg] Celso Garibay DO Work Phone: [facility] 08-19-2024 01:03-0500 Diastolic blood pressure 69 mm[Hg] Ashley Grigsby MD Work Phone: [facility] 08-19-2024 01:03-0500 Heart rate 60 /min Ashley Grigsby MD Work Phone: [facility] 08-19-2024 01:03-0500 Respiratory rate 20 /min Ashley Grigsby MD Work Phone: [facility] 08-19-2024 01:03-0500 SaO2% (BldA) [Mass fraction] 96 % Ashley Grigsby MD Work Phone: [facility] 08-19-2024 01:03-0500 Systolic blood pressure 130 mm[Hg] Ashley Grigsby MD Work Phone: [facility] 08-18-2024 20:55-0500 Body height 160.02 cm Ashley Grigsby MD Work Phone: [facility] 08-18-2024 20:55-0500 Body temperature 97.4 [degF] Ashley Grigsby MD Work Phone: [facility] 08-18-2024 20:55-0500 Body weight 78.5 kg Ashley Grigsby MD Work Phone: [facility] 08-13-2024 12:21-0500 Body height 160 cm Celso Garibay DO Work Phone: [facility] 08-13-2024 12:21-0500 Body mass index (BMI) [Ratio] 30.47 kg/m2 Celso Garibay DO Work Phone: [facility] 08-13-2024 12:21-0500 Body weight 78.02 kg Celso Garibay DO Work Phone: [facility] 08-13-2024 12:21-0500 Diastolic blood pressure 94 mm[Hg] Celso Garibay DO Work Phone: [facility] 08-13-2024 12:21-0500 Heart rate 76 /min Celso Garibay DO Work Phone: [facility] 08-13-2024 12:21-0500 Systolic blood pressure 138 mm[Hg] Celso Garibay DO Work Phone: [facility] 08-05-2024 11:08-0500 Blood Pressure Location [place] [facility] 08-05-2024 11:08-0500 Body temperature 98.6 [degF] [place] [facility] 08-05-2024 11:08-0500 Diastolic blood pressure 80 mm[Hg] [place] [facility] 08-05-2024 11:08-0500 Heart rate 68 /min [place] [facility] 08-05-2024 11:08-0500 Respiratory rate 16 /min [place] [facility] 08-05-2024 11:08-0500 Systolic blood pressure 131 mm[Hg] [place] [facility] 04-10-2024 15:08-0400 Blood Pressure Location [place] [facility] 04-10-2024 15:08-0400 Diastolic blood pressure 80 mm[Hg] [place] [facility] 04-10-2024 15:08-0400 Heart rate 75 /min [place] [facility] 04-10-2024 15:08-0400 Respiratory rate 16 /min JENNIFER MARTINO [facility] 04-10-2024 15:08-0400 Systolic blood pressure 131 mm[Hg] JENNIFER MARTINO [facility] 02-29-2024 11:15-0400 Body height 160 cm [facility] 02-29-2024 11:15-0400 Body mass index (BMI) [Ratio] 29.58 kg/m2 [facility] 02-29-2024 11:15-0400 Body weight 75.75 kg [facility] 01-17-2024 16:03-0400 Body height 161.3 cm Stephanie Berger MD PhD Work Phone: [facility] 01-17-2024 16:03-0400 Body mass index (BMI) [Ratio] 30.16 kg/m2 Stephanie Berger MD PhD Work Phone: [facility] 01-17-2024 16:03-0400 Body weight 78.47 kg Stephanie Berger MD PhD Work Phone: [facility] 08-14-2023 15:29-0500 Body height 161.3 cm Celso Garibay DO Work Phone: [facility] 08-14-2023 15:29-0500 Body mass index (BMI) [Ratio] 28.07 kg/m2 Celso Garibay DO Work Phone: [facility] 08-14-2023 15:29-0500 Body weight 73.03 kg Celso Garibay DO Work Phone: [facility] 08-14-2023 15:29-0500 Diastolic blood pressure 80 mm[Hg] Celso Garibay DO Work Phone: [facility] 08-14-2023 15:29-0500 Heart rate 56 /min Celso Garibay DO Work Phone: [facility] 08-14-2023 15:29-0500 Systolic blood pressure 138 mm[Hg] Celso Garibay DO Work Phone: [facility] 06-18-2023 15:15-0400 Diastolic blood pressure 78 mm[Hg] Gaby Tello DO Work Phone: [facility] 06-18-2023 15:15-0400 Heart rate 70 /min Gaby Novoag DO Work Phone: [facility] 06-18-2023 15:15-0400 Respiratory rate 18 /min Gaby Novoag DO Work Phone: [facility] 06-18-2023 15:15-0400 SaO2% (BldA) [Mass fraction] 96 % Gaby Novoag DO Work Phone: [facility] 06-18-2023 15:15-0400 Systolic blood pressure 173 mm[Hg] Gaby Novoag DO Work Phone: [facility] 06-18-2023 14:36-0400 Body temperature 97 [degF] Gaby Novoag DO Work Phone: [facility] 06-18-2023 13:30-0400 Body height 160 cm Gaby Novoag DO Work Phone: [facility] 06-18-2023 13:30-0400 Body mass index (BMI) [Ratio] 27.03 kg/m2 Gaby Novoag DO Work Phone: [facility] 06-18-2023 13:30-0400 Body weight 69.22 kg Gaby Novoag DO Work Phone: [facility] 11-02-2022 15:02-0500 Diastolic blood pressure 84 mm[Hg] MD Ashley Grigsby Work Phone: [facility] 11-02-2022 15:02-0500 Heart rate 78 /min MD Ashley Grigsby Work Phone: [facility] 11-02-2022 15:02-0500 Respiratory rate 18 /min MD Ashley Grigsby Work Phone: [facility] 11-02-2022 15:02-0500 SaO2% (BldA) [Mass fraction] 100 % MD Ashley Grigsby Work Phone: [facility] 11-02-2022 15:02-0500 Systolic blood pressure 161 mm[Hg] MD Ashley Grigsby Work Phone: [facility] 11-02-2022 13:20-0500 Body height 160.02 cm MD Ashley Grigsby Work Phone: [facility] 11-02-2022 13:20-0500 Body temperature 98.2 [degF] MD Ashley Grigsby Work Phone: [facility] 11-02-2022 13:20-0500 Body weight 60.78 kg MD Ashley Grigsby Work Phone: [facility] 11-01-2022 13:26-0500 Diastolic blood pressure 61 mm[Hg] MD Ashley Grigsby Work Phone: [facility] 11-01-2022 13:26-0500 Heart rate 59 /min MD Ashley Grigsby Work Phone: [facility] 11-01-2022 13:26-0500 Respiratory rate 20 /min MD Ashley Grigsby Work Phone: [facility] 11-01-2022 13:26-0500 SaO2% (BldA) [Mass fraction] 99 % MD Ashley Grigsby Work Phone: [facility] 11-01-2022 13:26-0500 Systolic blood pressure 124 mm[Hg] MD Ashley Grigsby Work Phone: [facility] 11-01-2022 10:53-0500 Body height 160.02 cm Ashley Hoy Work Phone: [facility] 11-01-2022 10:53-0500 Body temperature 97.7 [degF] MD Trinh Hoy Work Phone: [facility] 11-01-2022 10:53-0500 Body weight 61.68 kg MD Trinh Hoy Work Phone: [facility] 10-24-2022 15:45-0500 Body height 159.38 cm Imad Asaad Other [facility] [employer] Other 10-24-2022 15:45-0500 Body mass index (BMI) [Ratio] 24.28 kg/m2 Imad Asaad Other [employer] Other 10-24-2022 15:45-0500 Body weight 61.69 kg Imad Asaad Other [employer] Other 10-24-2022 15:45-0500 Diastolic blood pressure 94 mm[Hg] Imad Asaad Other [employer] Other 10-24-2022 15:45-0500 Systolic blood pressure 133 mm[Hg] Imad Asaad Other [employer] Other 09-19-2022 00:00-0500 34 1 Ashley M Hoy Work Phone: [facility] [employer] 250 DO Work Phone: Comment on above: [facility] 08-15-2022 15:23-0500 Body height 160.02 cm Ashley M Hoy Work Phone: [facility] 250 DO Work Phone: 08-15-2022 15:23-0500 Body mass index (BMI) [Ratio] 26.22 kg/m2 Ashley M Hoy Work Phone: [facility] 250 DO Work Phone: 08-15-2022 15:23-0500 Body surface area Derived from formula 1.7 m2 Ashley M Hoy Work Phone: [facility] 250 DO Work Phone: 08-15-2022 15:23-0500 Body weight 67.13 kg Ashley Tyree Hoy Work Phone: [facility] 250 DO Work Phone: 08-15-2022 15:23-0500 Diastolic blood pressure 82 mm[Hg] Ashley Tyree Hoy Work Phone: [facility] 250 DO Work Phone: 08-15-2022 15:23-0500 Heart rate 80 /min Ashley Tyree Hoy Work Phone: [facility] 250 DO Work Phone: 08-15-2022 15:23-0500 Systolic blood pressure 132 mm[Hg] Sahley Tyree Hoy Work Phone: [facility] 250 DO Work Phone: 06-02-2022 08:12-0400 Blood Pressure Location Santiago CARRILL[facility] 06-02-2022 08:12-0400 Diastolic blood pressure 86 mm[Hg] Santiago CARRILLO [facility] 06-02-2022 08:12-0400 Heart rate 60 /min Santiago CARRILLO [facility] 06-02-2022 08:12-0400 Respiratory rate 16 /min Santiago CARRILLO [facility] 06-02-2022 08:12-0400 Systolic blood pressure 144 mm[Hg] Santiago CARRILLO [facility] 08-17-2021 09:47-0500 Body height 160.02 cm Ashley Tyree Hoy Work Phone: [facility] 250 DO Work Phone: 08-17-2021 09:47-0500 Body mass index (BMI) [Ratio] 25.01 kg/m2 Ashley M Hoy Work Phone: [facility] 250 DO Work Phone: 08-17-2021 09:47-0500 Body surface area Derived from formula 1.67 m2 Ashley M Hoy Work Phone: [facility] 250 DO Work Phone: 08-17-2021 09:47-0500 Body weight 64.05 kg Ashley M Hoy Work Phone: [facility] 250 DO Work Phone: 08-17-2021 09:47-0500 Diastolic blood pressure 86 mm[Hg] Ashley M Hoy Work Phone: [facility] 250 DO Work Phone: 08-17-2021 09:47-0500 Heart rate 72 /min Ashley M Hoy Work Phone: [facility] 250 DO Work Phone: 08-17-2021 09:47-0500 Systolic blood pressure 134 mm[Hg] Ashley M Hoy Work Phone: [facility] 250 DO Work Phone: Encounters Encounter Date Encounter Type Care Provider Facility Start: 01-30-2025 End: 01-30-2025 ambulatory CHAUNCEY KIMBLE [facility] Start: 01-17-2025 End: 01-17-2025 ambulatory ALI T [facility] Start: 01-09-2025 End: 01-09-2025 ambulatory [facility] Start: 12-31-2024 End: 12-31-2024 ambulatory [facility] Start: 12-12-2024 End: 12-12-2024 ambulatory [facility] Start: 11-26-2024 End: 11-26-2024 Bamboo flowsheet Raji RINALDI Work Phone: [facility] Start: 11-26-2024 End: 11-26-2024 Bamboo flowsheet Raji RINALDI Work Phone: [facility] Start: 11-26-2024 End: 11-26-2024 Office outpatient visit 15 minutes Raji RINALDI Work Phone: [facility] Comment on above: Acute pain of right wrist (Primary Dx); Tendonitis of wrist, right Start: 11-26-2024 End: 11-26-2024 ambulatory RAJI BYRD Not Available Start: 10-11-2024 End: 10-11-2024 ambulatory RADHA JAIMES [facility] Start: 09-05-2024 End: 09-05-2024 ambulatory [facility] Start: 09-05-2024 End: 09-05-2024 Transitional care manage srvc 14 day discharge [facility] Work Phone: [facility] Comment on above: Atherosclerosis of c oronary artery bypass graft of [place] heart without angina pectoris; S/P PTCA (percutaneous transluminal coronary angioplasty); History of coronary artery bypass graft; Ischemic cardiomyopathy; Essential hypertension; Mixed hyperlipidemia; BMI 30.0-30.9,adult; Statin intolerance Start: 08-20-2024 End: 08-22-2024 Evaluation and management of inpatient Donis Arroyo Facility:[facility] Start: 08-18-2024 Evaluation and management of inpatient Ashley Grigsby MD Work Phone: [facility] [place] [facility] Work Phone: Start: 08-18-2024 observation encounter Ashley Grigsby MD Work Phone: [facility] Work Phone: Start: 08-13-2024 End: 08-13-2024 ambulatory [facility] Start: 08-13-2024 End: 08-13-2024 Office outpatient visit 25 minutes [facility] DO Work Phone: [facility] Comment on above: Atherosclerosis of c oronary artery of [place] heart without angina pectoris, unspecified vessel or lesion type; History of coronary artery bypass graft; Essential hypertension, benign; Hyperlipidemia, unspecified hyperlipidemia type; Acute pancreatitis, unspecified complication status, unspecified pancreatitis type ([facility]) Start: 08-05-2024 End: 08-05-2024 ambulatory PA-C JENNIFER MARTINO Facility:[facility] [place] Start: 08-05-2024 End: 08-05-2024 Patient encounter procedure JENNIFER MARTINO [facility] Start: 04-10-2024 End: 04-10-2024 ambulatory PA-C JENNIFER MARTINO Facility:[facility] [place] Start: 04-10-2024 End: 04-10-2024 Patient encounter procedure JENNIFER MARTINO [facility] Start: 03-11-2024 End: 03-11-2024 ambulatory PA-C JENNIFER MARTINO Facility:[facility] [place] Start: 03-11-2024 End: 03-11-2024 Patient encounter procedure JENNIFER MARTINO [facility] Start: 03-07-2024 End: 03-07-2024 Evaluation and management of inpatient [facility] Start: 03-06-2024 End: 03-07-2024 Evaluation and management of inpatient [facility] Start: 03-06-2024 End: 03-06-2024 Evaluation and management of inpatient [facility] Start: 02-29-2024 End: 02-29-2024 Evaluation and management of inpatient ASHLEY Clements [facility] Start: 02-29-2024 End: 02-29-2024 Admission to [facility] Phone Call Provider [facility] Start: 02-27-2024 ambulatory [facility] Start: 02-27-2024 End: 02-27-2024 ambulatory [facility] Start: 02-14-2024 End: 02-14-2024 Orders Only Stephanie Berger MD PhD Work Phone: [facility] Comment on above: Xerostomia (Primary Dx) Start: 01-17-2024 End: 01-17-2024 ambulatory STEPHANIE BERGER [facility] Start: 01-17-2024 End: 01-17-2024 Office outpatient visit 15 minutes Stephanie Berger MD PhD Work Phone: [facility] Comment on above: Dry nose (Primary Dx ); Xerostomia; Allergic rhinitis, unspecified seasonality, unspecified trigger Start: 08-14-2023 End: 08-14-2023 Office outpatient visit 15 minutes Celso Garibay DO Work Phone: [facility] Comment on above: Atherosclerosis of c oronary artery of [place] heart without angina pectoris, unspecified vessel or lesion type; History of coronary artery bypass graft; Ischemic cardiomyopathy; Essential hypertension, benign Start: 06-18-2023 End: 06-18-2023 ambulatory GABYLEN TELLO [facility] Start: 06-18-2023 End: 06-18-2023 Subsequent hospital visit by physician Gaby Tello DO Work Phone: [facility] Comment on above: Post-menopausal blee ding; Inclusion cyst Start: 05-24-2023 Rx Renewal Ashley Grigsby Work Phone: [facility] 250 DO Work Phone: Start: 05-17-2023 Patient encounter procedure Ashley Grigsby Work Phone: [facility] 250 DO Work Phone: Start: 05-15-2023 ambulatory ASHLEY GRIGSBY [facility] Start: 12-12-2022 End: 12-12-2022 ambulatory MD Ashley Grigsby Work Phone: [facility] Work Phone: Start: 12-12-2022 End: 12-12-2022 Patient encounter procedure MD Ashley Grigsby Work Phone: [facility] Work Phone: Start: 11-20-2022 End: 11-20-2022 ambulatory Imad Asaad Other [facility] Quad Other Start: 11-20-2022 Telephone encounter Imad Asaad [facility] Start: 11-10-2022 End: 11-10-2022 Patient encounter procedure MD Ashley Grigsby Work Phone: [facility] Work Phone: Start: 11-02-2022 End: 11-02-2022 Admission to same day surgery center MD Ashley Grigsby Work Phone: [facility] Work Phone: Start: 11-02-2022 End: 11-02-2022 ambulatory MD Ashley Grigsby Work Phone: [facility] Work Phone: Start: 11-01-2022 Telephone encounter Imad Asaad [facility] Start: 11-01-2022 End: 11-01-2022 Admission to same day surgery center MD Ashley Grigsby Work Phone: [facility] Work Phone: Start: 11-01-2022 End: 11-01-2022 ambulatory MD Ashley Grigsby Work Phone: [facility] Work Phone: Start: 10-24-2022 End: 10-24-2022 ambulatory Imad Asaad Other [facility] Quad Other Start: 10-24-2022 FQHC visit new patient Imad Asaad [facility] Start: 10-16-2022 End: 10-17-[address] ASHLEY GRIGSBY Facility:H1 Start: 10-09-2022 End: 10-10-[address] ASHLEY GRIGSBY Facility:H1 Start: 10-05-2022 Rx Renewal Ashley Grigsby Work Phone: [facility] 250 DO Work Phone: Start: 10-04-2022 End: 10-06-[address] ASHLEY GRIGSBY Facility:H1 Start: 09-19-2022 End: 09-20-[address] DOCTOR PATEL Facility:H1 Start: 08-15-2022 Office outpatient vi sit 15 minutes Ashley Grigsby Work Phone: [facility] 250 DO Work Phone: Start: 08-15-2022 Patient encounter procedure Ashley Grigsby Work Phone: [facility] 250 DO Work Phone: Start: 06-02-2022 End: 06-02-2022 Patient encounter procedure Santiago CARRILLO [facility] Start: 05-31-2022 Rx Renewal Ashley Grigsby Work Phone: [facility] 250 DO Work Phone: Start: 02-07-2022 End: 02-07-2022 Patient encounter procedure Ashley Grigsby MD Work Phone: [facility] Start: 02-07-2022 End: 02-07-2022 Subsequent hospital visit by physician Ashley Grigsby MD Work Phone: [facility] Comment on above: Women's annual routi ne gynecological examination Start: 11-21-2021 Rx Renewal Ashley Tyree Seb Work Phone: [facility] 250 DO Work Phone: Start: 08-17-2021 Office outpatient vi sit 15 minutes Ashley Grigsby Work Phone: [facility] 250 DO Work Phone: Start: 08-19-2019 End: [...] of stomach Santiago FALGUNI MCFARLANDPam Cataract surgery Ashley M H oy Work [...] oy Work Phone: Operation on nose Ashley Grigsby Work Phone: Peripheral neuroplasty Cecilio Grigsby Work Phone: Repair of inguinal hernia Gentry CARRILLO Total colonoscopy Ashley Grigsby Work Phone: Plan of Treatment Date Care Activity Detail Author Start: 11-02-2032 Screening for malignant neoplasm of colon [facility] Start: 02-07-2027 Screening for malignant neoplasm of cervix [facility] Start: 08-18-2025 End: 08-18-2025 Patient encounter procedure 08/18/2025 11:20 AM EST Office Visit [facility] [address] [place] [address] Celso Garibay DO [address] [place] [address] [facility] Start: 08-03-2025 End: 08-13-2025 Alanine aminotransferase [Enzymatic activity/volume] in Serum or Plasma by With P-5'-P Alanine Aminotransferase Lab Routine Hyperlipidemia, unspecified hyperlipidemia type Expected: 08/03/2025 (Approximate), Expires: 08/13/2025 [facility] Service Area Work Phone: Comment on above: Expected: 08/03/2025 (Approximate), Expi res: 08/13/2025 Start: 08-03-2025 End: 08-13-2025 Aspartate aminotransferase [Enzymatic activity/volume] in Serum or Plasma by With P-5'-P Aspartate Aminotransferase Lab Routine Hyperlipidemia, unspecified hyperlipidemia type Expected: 08/03/2025 (Approximate), Expires: 08/13/2025 [facility] Work Phone: Comment on above: Expected: 08/03/2025 (Approximate), Expi res: 08/13/2025 Start: 08-03-2025 End: 08-13-2025 Lipid 1996 panel - Serum or Plasma Lipid Panel Lab Routine Hyperlipidemia, unspecified hyperlipidemia type Expected: 08/03/2025 (Approximate), Expires: 08/13/2025 [facility] Work Phone: Comment on above: Expected: 08/03/2025 (Approximate), Expi res: 08/13/2025 Start: 03-17-2025 End: 03-17-2025 Patient encounter procedure 03/17/2025 2:40 PM EDT Off ice Visit [facility] [address] [place] [phone] Celso Garibay DO [address] [place], [place] [id number] [facility] Start: 02-28-2025 Adult BMI Screening Adult BMI Screening [facility] Start: 02-07-2025 Screening for malignant neoplasm of cervix [facility] Start: 01-16-2025 Adult BMI Screening Adult BMI Screening [facility] Start: 01-16-2025 Tobacco Screening Tobacco Screening [facility] Start: 01-15-2025 End: 01-15-2025 Patient encounter procedure 01/15/2025 4:00 PM EDT Off ice Visit [facility] [address] [place] [phone] Stephanie Berger MD PhD [address] [address] [facility] Start: 11-26-2024 End: 11-26-2024 Patient encounter procedure 11/26/2024 1:00 PM EST Off ice Visit [facility] [address] [place] [address] Raji Byrd PA [address] [facility] [address] [place] [address] Acute pain of right wrist (Primary Dx) [facility] Comment on above: Acute pain of right wrist (Primary Dx) Start: 08-19-2024 Screening for malignant neoplasm of cervix [facility] Start: 08-19-2024 [facility] Start: 08-19-2024 Referral to ambulance dispatcher [facility] Start: 08-19-2024 [facility] Start: 08-18-2024 Hospital admission [facility] Start: 08-15-2024 Screening for malignant neoplasm of breast Mammogram [facility] Start: 08-13-2024 End: 08-13-2024 Patient encounter procedure 08/13/2024 11:30 AM EST Office Visit [facility] [address] [place] [id number] Celso Garibay DO [address] [place] [address] [facility] Start: 2024 RSV High Risk: (Elderly (60+) or Population) (1 - Risk 60-74 years 1-dose series) RSV High Risk: (Elderly (60+) or Population) (1 - Risk 60-74 years 1-dose series) [facility] Start: 06-01-2024 COVID-19 Vaccine ( season) COVID-19 Vaccine ( season) [facility] Start: 06-01-2024 Influenza vaccination Influenza Vaccine [facility] Start: 03-06-2024 End: 03-06-2024 Admission to same day surgery center 03/06/2024 11:30 AM EDT - 03/06/2024 12:45 PM EDT Surgery [facility] [address] [place] [address] Danielle Cesar MD [address] [place] [address] ESOPHAGOGASTRODUODENOSCOPY DIAGNOSTIC [49647 (CPT )] [facility] Comment on above: ESOPHAGOGASTRODUODENOSCOPY DIAGNOSTIC [4 3231 (CPT )] Start: 03-06-2024 End: 03-06-2024 Esophagogastroduodenoscopy transoral diagnostic ESOPHAGOGASTRODUODENOSCOPY DIAGNOSTIC ACUTE RECURRING PANCREATITIS, EPIGASTRIC PAIN 03/06/2024 11:30 AM EDT [facility] Start: 03-06-2024 End: 03-06-2024 Esophagoscopy flexible transoral ultrasound exam ENDOSCOPIC ULTRASOUND UPPER ACUTE RECURRING PANCREATITIS, EPIGASTRIC PAIN 03/06/2024 11:30 AM EDT [facility] Start: 03-06-2024 Subsequent hospital visit by physician 03/06/2024 11:30 AM EDT Hospital Encounter [facility] [address] [place] [address] Danielle Cesar MD [address] [facility] [address] [place] [address] [facility] Start: 02-14-2024 Depression Screen Depression Screen [facility] Start: 02-12-2024 End: 08-14-2024 Alanine aminotransferase [Enzymatic activity/volume] in Serum or Plasma by With P-5'-P Alanine Aminotransferase Lab Routine History of coronary artery bypass graft Ischemic cardiomyopathy Expected: 02/12/2024 (Approximate), Expires: 08/14/2024 [facility] Work Phone: Comment on above: Expected: 02/12/2024 (Approximate), Expi res: 08/14/2024 Start: 02-12-2024 End: 08-14-2024 Aspartate aminotransferase [Enzymatic activity/volume] in Serum or Plasma by With P-5'-P Aspartate Aminotransferase Lab Routine Atherosclerosis of coronary artery of [place] heart without angina pectoris, unspecified vessel or lesion type Ischemic cardiomyopathy Expected: 02/12/2024 (Approximate), Expires: 08/14/2024 [facility] Work Phone: Comment on above: Expected: 02/12/2024 (Approximate), Expi res: 08/14/2024 Start: 02-12-2024 End: 08-14-2024 Lipid 1996 panel - Serum or Plasma Lipid Panel Lab Routine Atherosclerosis of coronary artery of [place] heart without angina pectoris, unspecified vessel or lesion type Expected: 02/12/2024 (Approximate), Expires: 08/14/2024 [facility] Service Area Work Phone: Comment on above: Expected: 02/12/2024 (Approximate), Expi res: 08/14/2024 Start: 08-14-2023 FUV, Provider: Celso Garibay, Status: Pen, Time: 3:00 PM FUV, Provider: Celso Gairbay, Status: Pen, Time: 3:00 PM [facility] 250 DO Work Phone: Start: 07-28-2023 Screening for malignant neoplasm of breast Breast cancer screen [facility] Start: 07-24-2023 Screening for malignant neoplasm of breast Mammogram [facility] Start: 07-03-2023 End: 07-03-2023 Patient encounter procedure 07/03/2023 4:45 PM EDT Off ice Visit [facility] [address] [place] [address] Gaby Phillips, DO [address] [place] [address] post-op BA 05/16 [facility] Comment on above: post-op BA 05/16 Start: 06-18-2023 End: 06-18-2023 Hysteroscopy bx endometrium&/polypc w/wo d&c DILATATION AND CURETTAGE HYSTEROSCOPY Post-menopausal bleeding Inclusion cyst 06/18/2023 2:01 PM EDT [facility] Start: 06-01-2023 COVID-19 Vaccine () COVID-19 Vaccine () [facility] Start: 02-13-2023 End: 02-13-2023 Patient encounter procedure 02/13/2023 Office Visit Obstetrics and Gynecology Gaby Phillips, DO [address] [place] [address] [facility] Start: 12-12-2022 [facility] Start: 11-02-2022 [facility] Start: 11-01-2022 [facility] Start: 08-19-2022 Screening for malignant neoplasm of cervix Pap smear [facility] Start: 08-15-2022 FUV, Provider: Celso Garibay, Status: Pen, Time: 3:00 PM FUV, Provider: Celso Garibay, Status: Pen, Time: 3:00 PM [place] [address] DO Work Phone: Start: 08-03-2022 Lipid panel Lipids [facility] Start: 09-26-2021 COVID-19 Vaccine (4 - Pfizer series) COVID-19 Vaccine (4 - Pfizer series) [facility] Start: 06-01-2019 Influenza vaccination Flu vaccine (#1) [place] Start: 05-09-2018 Pneumococcal Vaccine: Pediatrics (0 to 5 Years) and At-Risk Patients (6 to 64 Years) (2 - PCV) Pneumococcal Vaccine: Pediatrics (0 to 5 Years) and At-Risk Patients (6 to 64 Years) (2 - PCV) [facility] Start: 05-09-2018 Pneumococcal Vaccine: Pediatrics (0 to 5 Years) and At-Risk Patients (6 to 64 Years) (2 of 2 - PCV) Pneumococcal Vaccine: Pediatrics (0 to 5 Years) and At-Risk Patients (6 to 64 Years) (2 of 2 - PCV) [facility] Start: 2014 Breast cancer screen Breast cancer screen [place] Start: 2014 Colon cancer screen colonoscopy Colon cancer screen colonoscopy [place] Start: 2014 Shingles Vaccine (1 of 2) Shingles Vaccine (1 of 2) [facility] Start: 08-26-2009 MMR Vaccines (1 of 1 - Standard series) MMR Vaccines (1 of 1 - Standard series) [facility] Start: 2009 Screening for malignant neoplasm of colon [facility] Start: 1999 Diabetes screen Diabetes screen [facility] Start: 1986 DTaP/Tdap/Td Vaccines (1 - Tdap) DTaP/Tdap/Td Vaccines (1 - Tdap) [facility] Start: 1985 Cervical cancer screen Cervical cancer screen [place] Start: 1985 Screening for malignant neoplasm of cervix [facility] Start: 1983 DTaP,Tdap and Td Vaccines (1 - Tdap) DTaP,Tdap and Td Vaccines (1 - Tdap) [facility] Start: 1983 DTaP/Tdap/Td vaccine (1 - Tdap) DTaP/Tdap/Td vaccine (1 - Tdap) [facility] Start: 1982 Adult BMI Follow Up Plan Adult BMI Follow Up Plan [facility] Start: 1982 Diabetes mellitus screening Diabetes Screening [facility] Start: 1982 Hepatitis C screening [facility] Start: 1979 HIV screen HIV screen [place] Start: 1979 HIV screening HIV screen [facility] Start: 1976 Depression Screen Depression Screen [facility] Start: 1976 Depression Screening Depression Screening [facility] Start: 1975 DTaP/Tdap/Td vaccine (1 - Tdap) DTaP/Tdap/Td vaccine (1 - Tdap) [place] Start: 1974 Lipid panel Lipids [facility] Start: 1974 Lipid screen Lipid screen [place] Start: 1964 Hepatitis B vaccine (1 of 3 - 3-dose series) Hepatitis B vaccine (1 of 3 - 3-dose series) [facility] Start: 1964 Hepatitis B Vaccines (1 of 3 - 3-dose series) Hepatitis B Vaccines (1 of 3 - 3-dose series) [facility] Start: 1964 Hepatitis C screen Hepatitis C screen [place] Start: 1964 HIV screening HIV Screening [facility] Start: 1964 Lipid panel Lipid Panel [facility] Start: 1964 Screening for malignant neoplasm of colon [facility] Start: 1964 Yearly Adult Physical Yearly Adult Physical [facility] Actin smooth muscle IgG Ab [Units/volume] in Serum [facility] Alpha 1 antitrypsin [Mass/volume] in Serum or Plasma [facility] Alpha 1 antitrypsin phenotyping [Identifier] in Serum or Plasma by Immunofixation [facility] Ceruloplasmin [Mass/ volume] in Serum or Plasma [facility] End: 08-19-2019 Cytopathology procedure, preparation of smear, genital source PAP SMEAR Lab Routine Well female exam with routine gynecological exam 1 Occurrences starting 08/19/2019 until 08/19/2019 [facility] [place] [facility] Comment on above: 1 Occurrences starting 08/19/2019 until 08/19/2019 End: 02-07-2022 Cytopathology procedure, preparation of smear, genital source PAP SMEAR Lab Routine Women's annual routine gynecological examination 1 Occurrences starting 02/07/2022 until 02/07/2022 [facility] Work Phone: Comment on above: 1 Occurrences starting 02/07/2022 until 02/07/2022 Glucose measurement estimated from glycated hemoglobin [facility] Hepatitis A virus Ab [Presence] in Serum by Immunoassay [facility] Hepatitis B core ant ibody measurement [facility] Hepatitis B virus khanna rface Ab [Presence] in Serum [facility] Hepatitis B virus khanna rface Ag [Presence] in Serum or Plasma by Immunoassay [facility] Hepatitis C virus Ig G Ab [Presence] in Serum or Plasma by Immunoassay [facility] Homogenous nuclear A b pattern [Titer] in Serum [facility] IgG [Mass/volume] in Serum or Plasma [facility] End: 06-18-2023 INITIATE PACU OXYGEN THERAPY PROTOCOL Initiate PACU Oxygen Therapy Protocol Respiratory Care Routine Continuous until discontinued starting 06/18/2023 [facility] Comment on above: Continuous until discontinued starting 0 06/18/2023 Lipoprotein a [Moles /volume] in Serum or Plasma [facility] Mitochondria M2 IgG Ab [Units/volume] in Serum [facility] Nuclear Ab [Titer] in Serum [facility] Oxygen therapy [Mini mum Data Set] Initiate Oxygen Therapy Protocol Respiratory Care Routine As Needed until discontinued starting 06/18/2023 [facility] Comment on above: As Needed until discontinued starting Oxygen therapy [Mini mum Data Set] Initiate Oxygen Therapy Protocol Respiratory Care Routine As Needed until discontinued starting 06/18/2023 [facility] Comment on above: As Needed until discontinued starting Patient Education Hemorrhoids (DC) [facility] Work Phone: End: 06-18-2023 , urine POCT , urine POCT Point of Care Testing Routine One Time for 1 Occurrences starting 06/18/2023 until 06/18/2023 [facility] Comment on above: One Time for 1 Occurrences starting 06/01 until 06/18/2023 Surgical Pathology Surgical Path ology Lab Routine Post-menopausal bleeding Inclusion cyst Release Upon Ordering for 1 Occurrences starting 06/18/2023 [facility] Comment on above: Release Upon Ordering for 1 Occurrences starting 06/18/2023 [facility] Immunizations Immunization Date Immunization Notes Care Provider Sudhakar ponce 06-01-2024 influenza, unspecifi ed formulation [place] [facility] 06-05-2023 influenza virus vacc ine, unspecified formulation Stephanie Berger MD PhD Work Phone: [employer] 06-16-2022 influenza, injectabl e, quadrivalent, preservative free Ashley Clements Seb Work Phone: [facility] [employer] 250 DO Work Phone: 06-16-2022 zoster vaccine recombinant Ashley Clements [employer] Work Phone: [facility] [employer] 250 DO Work Phone: 08-01-2021 Pfizer[employer]UM [employer] COVI D-19 Vacc 30 MCG/0.3ML Intramuscular Suspension Ashley Tyree Grigsby Work Phone: [facility] [employer] 250 DO Work Phone: 06-30-2021 influenza virus vacc ine, unspecified formulation Ashley Tyree Hoestefani Work Phone: [facility] [employer] 250 DO Work Phone: 06-03-2021 Influenza, injectabl e, [place]in [place] Canine Kidney, preservative free, quadrivalent Ashley M Seb Work Phone: [facility] 250 DO Work Phone: 01-29-2021 Pfizer-BioNTech COVI D-19 Vacc 30 MCG/0.3ML Intramuscular Suspension Ashley M Hoy Work Phone: [facility] 250 DO Work Phone: 01-08-2021 Pfizer-BioNTech COVI D-19 Vacc 30 MCG/0.3ML Intramuscular Suspension Ashley M Hoy Work Phone: [facility] 2020 influenza, injectabl e, quadrivalent, preservative free Ashley M Hoy Work Phone: [facility] 250 DO Work Phone: 07-23-2018 influenza, injectabl e, quadrivalent, preservative free Ashley M Hoy Work Phone: [facility] 250 DO Work Phone: 07-26-2017 Influenza, injectabl e, Madin [place] Canine Kidney, preservative free, quadrivalent Ashley M Hoy Work Phone: [facility] 250 DO Work Phone: 05-09-2017 pneumococcal polysaccharide vaccine, 23 valent Ashley M Hoy Work Phone: [facility] 250 DO Work Phone: 07-03-2015 influenza, seasonal, injectable, preservative free Ashley M Hoy Work Phone: [facility] 250 DO Work Phone: 06-15-2014 influenza, seasonal, injectable Ashley M Hoy Work Phone: [facility] 250 DO Work Phone: 07-29-2009 novel influenza-H1N1 -09, preservative-free, injectable [facility] Work Phone: Payers Date Payer Category Payer Self-pay [phone] [id number] 2022 [facility] BCBS [id number] 2022 [facility] Care [facility] [id number] 2022 Unknown 2019 Unknown BCBS [place] BC BS [place] PPO [place] LOCAL xxxxxxxxxxxxxxx 2019-Present [address] [place] [address] xxxxxxxxxxxxxxx [id number] 1964 Unknown [id number] 2.16.840.1.269784.3.579.2.5 93 1964 Unknown [id number] 2..840.1.123952.3.579.2.5 93 1964 Unknown [id number] 2.16.840.1.301742.3.579.2.5 93 1964 Unknown [id number] 2.16.840.1.793700.3.579.2.5 93 1964 Unknown [id number] 2.16.840.1.631350.3.579.2.5 93 1964 Unknown [id number] 2.16.840.1.737990.3.579.2.1 73 1964 Unknown [id number] 2.16.840.1.259514.3.579.2.1 75 1964 Unknown [id number] 2.16.840.1.230017.3.579.2.1 286 1964 Unknown [id number] 2.16.840.1.830887.3.579.2.1 286 1964 Unknown [id number] 2.16.840.1.826832.3.579.2.1 286 1964 Unknown [id number] 2.16.840.1.355761.3.579.2.1 286 1964 Unknown [id number] 2.16.840.1.235915.3.579.2.1 286 1964 Unknown [id number] 2.16.840.1.764831.3.579.2.1 286 1964 Unknown [id number] 2.16.840.1.727794.3.579.2.1 286 1964 Unknown [id number] 2.16.840.1.567435.3.579.2.7 27 1964 Unknown [id number] 2.16.840.1.697482.3.579.2.7 27 1964 Unknown [id number] 2.16.840.1.627564.3.579.2.7 27 1964 Unknown [id number] 2.16.840.1.129740.3.579.2.1 244 1964 Unknown [id number] 2.16.840.1.785516.3.579.2.1 244 1964 Unknown [id number] 2.16.840.1.285208.3.579.2.1 259 1964 Unknown [id number] 2.16.840.1.561872.3.579.2.1 259 1964 Unknown [id number] 2.16.840.1.919427.3.579.2.1 286 1964 Unknown [id number] 2.16.840.1.068662.3.579.2.1 286 1959 Unknown [id number] 1959 Unknown [id number] Unknown [id number] 2.16.840.1.225677.3.579.2.5 31 Social History Date Type Detail Facility Start: 08-19-2019 End: 09-13-2023 Tobacco smoking status NHIS Never smoker [place] Start: 08-19-2019 End: 11-26-2024 Alcohol intake Ex-drinker (finding) [facility] Start: 1965 Sex Assigned At Not on file [place] Start: 06-18-2023 End: 11-26-2024 No alcohol use No alcohol use [facility] 250 DO Work Phone: Start: 08-19-2019 End: 09-13-2023 Tobacco use and exposure Smokeless tobacco non-user [facility] Work Phone: Start: 06-18-2023 End: 11-26-2024 Sex Assigned At Female [facility] Start: 1965 Sex Assigned At Female F [facility] Patient Health Questionnaire 9 item (PHQ-9) total score [Reported] 0 [facility] Start: 08-14-2023 End: 09-05-2024 Alcohol intake Lifetime non-drinker (finding) [facility] Work Phone: Start: 08-04-2023 End: 09-05-2024 Exposure to SARS-CoV-2 (event) Not sure [facility] Start: 08-19-2024 Sex Female (finding) [facility] Start: 01-17-2024 End: 02-29-2024 Alcoholic beverage intake Current non-drinker of alcohol (finding) [facility] Start: 09-12-2023 Gender identity Identifies as female gender (finding) [facility] NEGATED: Highlighted row Denies Caffeine use Denies Caffeine use -[facility] 250 DO Work Phone: Medical Equipment Procedure [...] Tissue Alloderm Nonmesh 2x4cm - Sna - [id number] Start: 09-06-2017 Lens Iol Ultrase rt 17.0d - [id number] - [id number] Start: 11-14-2018 Sinus Implant Propel Mini - Sna - [id number] Start: 01-03-2018 Sinus Implant Propel - Sna - [id number] Start: 01-03-2018 Acrysofiq Restor [id number] Start: 11-05-2018 Goals Date Patient Goal Desired Activity /State Functional Status Date Assessment Result Facility 08-05-2024 Functional Status N/A [facility] 04-10-2024 Functional Status N/A [facility] 06-02-2022 Functional Status N/A [facility] Clinical Notes 06-02-2022 to 01-09-2025 GENRTY Kearney - 11/26/2024 1:00 PM Trinh Garibay DO - 09/05/2024 9:20 AM ESTPatient InstructionsAttachments Note Date & Type Note Facility 01-09-2025 Note Attestation signed by Chauncey Kimble MD at 01/10/2025 8:31 AM I personally saw the patient with the resident/fellow on the same day of service. I discussed the findings and therapeutic plan with the resident/fellow and with the patient. I agree with the documentation. [facility] Gastroenterology New Patient Visit - History & Physical CHIEF COMPLAINT Chief Complaint Patient presents with Follow-up MRI follow up and seen at [facility] and in hospital for 1 day. Will get records. Jasenodalis helped tremendously this time and she came home with it, She just complains of fatigue. PCP Ordered sleep study HISTORY OF PRESENT ILLNESS: Jose Alberto Saleem [...] on for which she was admitted at [facility] and was management symptomatically. Patient reported since then she has been feeling fine. Unknown family history. Patient denies alcohol use. Interval History 01/09/2025: She described a longstanding history of intermittent severe postprandial epigastric and right upper quadrant pain radiating to the back, often triggered within 2 hours of eating and accompanied by significant nausea, fatigue, and occasional gagging without emesis (post-bypass anatomy limits vomiting). During the most recent episode, she was found to have significantly elevated pancreatic enzymes, with lipase levels reportedly over four times the upper limit of normal, and was treated with IV morphine and sublingual hyoscyamine (later switched to an oral formulation), which alleviated her pain. She was hospitalized overnight, and her labs normalized with bowel rest. She denies diarrhea, ongoing steatorrhea, or overt jaundice but reports chronic incomplete bowel evacuation despite regular use of Colace and recently initiated DigestSyn supplement; Miralax was reportedly ineffective. She remains on Creon 1 capsule per meal, though not consistently. She also takes Plavix, baby aspirin, amlodipine, and a PRN [place] for pain. Of note, she has a history of lifelong constipation and urinary urgency for which she is on Myrbetriq. MRCP completed the week prior showed no evidence of pancreatic mass, significant ductal dilation, or obstructive pathology, but demonstrated post-cholecystectomy changes with a borderline CBD dilation to 0.8 cm. Given her gastric bypass anatomy, traditional ERCP access to the ampulla is not feasible. Sphincter of Oddi dysfunction (SOD) remains a leading diagnostic consideration given the episodic nature, postprandial pain pattern, elevated enzymes, and unremarkable imaging; however, confirmation requires correlation of symptom onset with elevated liver function tests (LFTs) and pancreatic enzymes, which were ordered at the outside facility ([facility]) and remain pending. A HIDA scan may also be pursued for further evaluation. She reports extreme fatigue post-hospitalization, interfering with her work and daily function. She prefers to avoid surgical intervention unless necessary and is open to advanced enteroscopy (e.g., device-assisted ERCP) at tertiary centers ([facility] or [facility]) as a less invasive alternative to laparoscopic-assisted ERCP. Plan includes requesting complete LFTs and pancreatic (more content not included)... [facility] 12-12-2024 Note Attestation signed by Chauncey Kimble MD at 12/12/2024 3:31 PM I personally saw the patient with the resident/fellow on the same day of service. I discussed the findings and therapeutic plan with the resident/fellow and with the patient. I agree with the documentation. [facility] Gastroenterology New Patient Visit - History [...] on for which she was admitted at [facility] and was management symptomatically. Patient reported since [...] healthy appearing mucosa. This was traversed. The pnrnv-pp-eptbeun limb was characterized by healthy appearing mucosa. [...] Angina pectoris Atherosclerosis of coronary artery of tohono [place]'odham heart without angina pectoris Cellulitis of right [...] Mother Katharyn Hyperlipidemia Father Munoz Hyperlipidemia Brother Jal Heart attack Brother Ray SOCIAL HISTORY: Social History Tobacco Use Smoking status: Never Smokeless tobacco: Never Vaping Use Vaping status: Never Used Substance Use Topics Alcohol use: Never Drug use: Never ALLERGIES: Baclofen; Latex, natural rubber; Penicillins; Sulfa (sulfonamide antibiotics); Rosuvastatin; Sulfamethoxazole-trimethoprim; Fenofibrate; Fenofibrate micronized; Fluvastatin; Levofloxacin; Phenazopyridine; Simvastatin; Trimethoprim; and Tobramycin Current Med (more content not included)... [facility] 11-26-2024 History of Present illness Narrative Images [...] AND FELT A POP 10/08/24- WENT TO [facility]; SENT TO ER XRAYS XRAY RT WRIST TODAY EPIC 11/26/24 XRAY [facility] RT FOREARM 10/11/24 SPLINT DOING [...] xray 10/11/24 (R) Forearm: no acute fracture [facility] Results - Imaging: - X-ray [...] requiring urgent evaluation. documented in this encounter [facility] 09-05-2024 History of Present illness Narrative Subjective Jose Alberto Saleem is a 59 y.o. female Chief Complaint Follow-up 59-year-old female returns following acute coronary syndrome, with subsequent two-vessel intervention of the vein graft to the diagonal branch with long 3.5 x 38 mm [place] stent and [place] distal circumflex for in-stent restenosis with 3 x 18 mm Ray stent. LV function is preserved. WHEELER-LAD remains patent, [place] right coronary vein graft right coronary is chronically occluded (known from the past) and collateralized via left coronary system, and vein graft to the OM 2 is also occluded chronically however [place] circumflex is intact. Patient is otherwise stable [...] Atherosclerosis of coronary artery bypass graft of [place] heart without angina pectoris 2. S/P PTCA [...] discussion and plan. documented in this encounter [facility] Work Phone: 09-05-2024 Instructions Jasmyne Salinas [...] be sent through Care Everywhere.Heart Healthy Diet (South Sudanese)documented in this encounter [facility] Work Phone: 08-19-2024 Evaluation note Diagnosis Onset Date Resolution Atypical chest pain acute Novem rocky 2023 11:18pm [facility] Work Phone: 1(882) 134-982211-13-2024 History of Present illness Narrative* Celso Garibay, DO - 08/13/2024 11:30 AM EST Subjective Jose Alberto Saleem is a 59 y.o. female Chief Complaint Annual Exam 59-year-old female returns for annual visit, she just got back from [facility] from vacation last evening and is [...] Assessment/Plan 1. Atherosclerosis of coronary artery of [place] heart without angina pectoris, unspecified vessel or lesion type Follow Up In Cardiology 2. History of coronary artery bypass graft Follow Up In Cardiology 3. Essential hypertension, benign 4. Hyperlipidemia, unspecified hyperlipidemia type 5. Acute pancreatitis, unspecified complication status, unspecified pancreatitis type ([facility]) Scribe Attestation By signing my name below, IBettie LPN, Scribe attest that this documentation has [...] exam, discussion and plan. [facility]: 1(161) 573-786011-13-2024 Instructions* Patient Instructions* Bettie Ugalde LPN - [...] Provided instructions on exercise. [facility] Phone: 1(542) 329-439011-05-2024 Hospital Discharge instructions Patient Education 08/05/2024 12:20:10 Kidney Stones, Puax-fw-Fkcx Kidney Stones Kidney stones are rock-like masses [...] Follow these instructions at home: Medicines Take nyqc-ztk-tdsnufh and prescription medicines only as told by [...] provider. Document Revised: 05/11/2023 Document Reviewed: 05/11/2023 [employer] Patient Education 2023 [employer] Follow Up Care 06/06/2024 11:10:21 With:SALENA REDDY, JENNIFER López, URL Address: When:1 year [facility] NotePatient Education Urology Kidney Stones Kidney [...] these instructions at home: Medicines ??? Take qlrk-jhr-pkwvdaj and prescription medicines only as told by [...] provider. Document Revised: 05/11/2023 Document Reviewed: 05/11/2023 [employer] Patient Education ? [facility]23 [email or web address] 04-10-[facility]24 Hospital Discharge instructions Patient Education 04/10/2024 16:08:23 Kidney Stones, Ksbu-fd-Junn Kidney Stones Kidney stones are rock-like masses [...] Follow these instructions at home: Medicines Take osog-soj-ceudiri and prescription medicines only as told by [...] provider. Document Revised: 05/22/2022 Document Reviewed: 05/22/2022 [employer] Patient Education 2022 [email or web address]. Follow Up Care 03/10/2024 08:31:33 With:SALENA REDDY, JENNIFER López, URL Address: [address] [facility] [place] [address] When:3 months [facility] 07-11-2024 NotePatient Education Urology Kidney Stones [...] these instructions at home: Medicines ? Take pqsd-hsn-axifwef and prescription medicines only as told by [...] provider. Document Revised: 05/22/2022 Document Reviewed: 05/22/2022 [employer] Patient Education ? 2022 [email or web address] 02-29-2024 Instructions* Pre-Procedure Instructions - Aracely Boyd RN - 02/29/2024 10:00 AM EDT Your surgery/procedure is scheduled at [facility] on 03/06/2024 at 1130 Arrival Time 0930 [facility] Address: [address] [place] [address]. [address] in Parking lot located on [facility]. Report to the Entrance B. Check in at the information desk the surgery. The waiting room located on the second floor. If you have any questions prior to surgery, please call Pre-Admission Clinic at [phone] between 7:30 am and 4:30 pm Sunday through Sunday. If you have questions the morning of surgery, please call the Pre-op Department at [phone]. Notify your SURGEON if you develop any [...] would like to schedule therapy at a [facility] Rehab facility, please call [phone] ([phone]). Do not use lotions, creams, powders, perfume, [...] RIGHTS AND RESPONSIBILITIES As a patient at [facility], you have the right to: Receive medical care and be informed of who is taking care of you Be treated with dignity and respect Have a family member/brand representative of choice and your physician notified of your admission Receive information and actively participate in decisions about your care and treatment Refuse care, treatment and services Decide who may provide your support and speak for you Access [facility] and spiritual services Participate in ethical issues [...] of hospital charges and payment methods Patient/patient brand representative responsibilities are to: Provide information about [...] RIGHTS AND RESPONSIBILITIES As a patient at [facility], you have the right to: Receive medical care and be informed of who is taking care of you Be treated with dignity and respect Have a family member/brand representative of choice and your physician notified of your admission Receive information and actively participate in decisions about your care and treatment Refuse care, treatment and services Decide who may provide your support and speak for you Access [facility] and spiritual services Participate in ethical issues [...] of hospital charges and payment methods Patient/patient brand representative responsibilities are to: Provide information about [...] Control department if you have any questions. [facility]05-31-2024 Miscellaneous Notes* Pre-Procedure Instructions - Aracely Boyd RN - 02/29/2024 10:00 AM EDT Your surgery/procedure is scheduled at [facility] on 03/06/2024 at 1130 Arrival Time 0930 [facility] Address: [address] [place] [address] in P1 Parking lot located on [facility]. Report to the Entrance B. Check in at the information desk the surgery. The waiting room located on the second floor. If you have any questions prior to surgery, please call Pre-Admission Clinic at [phone] between 7:30 am and 4:30 pm Sunday through Sunday. If you have questions the morning of surgery, please call the Pre-op Department at [phone]. Notify your SURGEON if you develop any [...] would like to schedule therapy at a [facility] Rehab facility, please call [phone] ([phone]). Do not use lotions, creams, powders, perfume, [...] RIGHTS AND RESPONSIBILITIES As a patient at [facility], you have the right to: Receive medical care and be informed of who is taking care of you Be treated with dignity and respect Have a family member/brand representative of choice and your physician notified of your admission Receive information and actively participate in decisions about your care and treatment Refuse care, treatment and services Decide who may provide your support and speak for you Access [facility] and spiritual services Participate in ethical issues [...] of hospital charges and payment methods Patient/patient brand representative responsibilities are to: Provide information about [...] RIGHTS AND RESPONSIBILITIES As a patient at [facility], you have the right to: Receive medical care and be informed of who is taking care of you Be treated with dignity and respect Have a family member/brand representative of choice and your physician notified of your admission Receive information and actively participate in decisions about your care and treatment Refuse care, treatment and services Decide who may provide your support and speak for you Access [facility] and spiritual services Participate in ethical issues [...] of hospital charges and payment methods Patient/patient brand representative responsibilities are to: Provide information about [...] you have any questions. [facility] Inofile [id number] Note Attestation signed by Danielle Cesar MD at 02/27/2024 2:30 PM I personally saw and examined the patient on the same date of service as resident/fellow . I discussed the findings and therapeutic plan with the resident/fellow . I agree with the documentation, except for any edits/updates below. [facility] Gastroenterology New Patient Visit - History [...] pectoris (CMS/HCC) Atherosclerosis of coronary artery of [place]'od[place] heart without angina pectoris Cellulitis of right [...] Mother Gretta Hyperlipidemia Father Munoz Hyperlipidemia Brother Jal Heart attack Brother Ray SOCIAL HISTORY: Social [...] negative HEENT: negative RESPI (more content not included)...[facility] 01-17-2024 History of Present illness Narrative* Stephanie Berger MD PhD - 01/17/2024 4:00 PM EDT [facility] [address] [facility] [id number] SUBJECTIVE: Patient ID (1965): Jose Alberto Saleem [...] Hypertension Kidney stone Kidney stones Myocardial infarction ([facility]) 2013 5 stents Visual impairment Past Surgical History: Procedure Laterality Date APPENDECTOMY BIOPSY SALIVARY GLAND FS N/A 09/06/2017 Performed by Stephanie Berger MD at [facility] CARPAL TUNNEL RELEASE right CHOLECYSTECTOMY CORONARY ARTERY BYPASS GRAFT x4 ENDOSCOPIC FUNCTIONAL SINUS SURGERY Bilateral 01/03/2018 Performed by Stephanie Berger MD at [facility] ENDOSCOPIC SURGERY SINUS Bilateral 01/03/2018 Performed by Stephanie Berger MD at [facility] EXCISION MASS UPPER EXTREMITY Right 11/19/2019 Performed by Stephanie Morse DO at [facility] HERNIA REPAIR LAPAROSCOPIC GASTRIC BYPASS LITHOTRIPSY OVARIAN CYST REMOVAL PHACO KELMAN I IMPLANT INTRAOCULAR LENS Left 11/14/2018 Performed by Nisha Stoll MD at [facility] PHACO KELMAN I IMPLANT INTRAOCULAR LENS Right 11/05/2018 Performed by Nisha Stoll MD at [facility] RELEASE CARPAL TUNNEL Right 01/11/2022 Performed by Stephanie Morse DO at [facility] RELEASE CARPAL TUNNEL [place] CPT 78384 Left 07/19/2022 Performed by Stephanie Morse DO at [facility] RESECTION SUBMUCOSAL Bilateral 09/06/2017 Performed by Stephanie Berger MD at [facility] SEPTOPLASTY SEPTOPLASTY N/A 09/06/2017 Performed by Stephanie Berger MD at [facility] STENT INSERTION LACRIMAL DUCT EYE Right 09/06/2017 Performed by Stephanie Berger MD at [facility] URETERAL STENT PLACEMENT Family History Problem [...] tablets (6.25 mg total) by mouth daily. slhniwlc-hldv-HX-calcium &mins (THERAGRAN-M) 9 mg iron-400 mcg tablet [...] day. (Patient not taking:Reported on 01/17/2024) sod weyop-jpxbnz-bjrast bottle (NEILMED SINUS RINSE COMPLETE) packet with [...] this chart were generated using voice recognition M*Passado dictation software. Although every effort was made to ensure the accuracy of this automated manager fire, some errors in manager fire may have occurred. documented in this encounterPro[facility] HospitalWhaleback [facility]11-14-2023 History of Present illness Narrative* Celso Pam CintronPhoenix, DO - 08/14/2023 3:00 PM EST Subjective [...] Assessment/Plan 1. Atherosclerosis of coronary artery of [place]'od[place] heart without angina pectoris, unspecified vessel or lesion type 2. History of coronary artery bypass graft 3. Ischemic cardiomyopathy 4. Essential hypertension, benign [facility] Phone: 1(439) 693-176011-14-2023 Instructions* Patient Instructions* Ej Braswell MA - [...] time of your visit. [facility] Work Phone: 1(674) 187-496809-18-2023 Hospital Discharge instructions* Discharge Instructions* Lissa Ocasio [...] call if excessive. Call the office at [phone] ([place]) [phone] ([place]) for an appointment in 2 weeks. [facility] History of Present illness Narrative* Sejal [...] pre-opvisit with Dr. Tripathi. documented in this encounterMART[facility] Evaluation note* Encounter Date Diagnosis Assessment Notes Treatment Notes Treatment Clinical Notes Nov, Elevated liver function tests (ICD-10 - R94.5) Social[employer] Other 02-02-2023 [facility]01-24-2023 Evaluation note* Encounter Date Diagnosis Assessment Notes Treatment Notes Treatment Clinical Notes Oct, Abdominal pain (ICD-10 - R10.9) Oct, Common bile duct dilatation (ICD-10 - K83.8) Oct, Elevated liver enzymes (ICD-10 - R74.8) Oct, Constipation (ICD-10 - K59.00) Colonoscopy Start Miralax daily after colonoscopy. Titration dosing discussed with patient. Oct, Colon cancer screening (ICD-10 - Z12.11) [facility] Other 01-04-2023 NotePROGRESS NOTE NOTE DATE: 10/04/2022 CHIEF COMPLAINT: Abdominal pain. HISTORY OF PRESENT ILLNESS: The patient is a 57-year-old female with a history of dyslipidemia and gastric bypass surgery, who has been having increasing abdominal pain and flank pain. She was seen yesterday at the [facility] for epigastric and upper abdominal [...] Prophylaxis: Lovenox. DISPOSITION: Home when medically stable.[id number] Hospital Discharge instructions Patient Education 06/02/2022 08:51:52 Kidney Stones, Lfpc-at-Ufbu Kidney Stones Kidney stones are rock-like masses [...] Follow these instructions at home: Medicines Take rlwj-mlx-jlyhkjf and prescription medicines only as told by [...] 03/05/2009 Document Revised: 02/03/2020 Document Reviewed: 02/03/2020 [employer]Class Patient Education 2020 [email or web address]. Follow Up Care 05/27/2021 09:10:08 With:Santiago CARRILLO MD, URL Address: [address] [place], [place] [address]- When: Unknown [facility] evaluation + Plan note Future Appointments Appointment Date:06/01/2023 08:00:00 AM Scheduled Provider:Santiago CARRILLO MD Location:[facility] Appointment Type:URO Office Visit [facility] evaluation + Plan note Future Appointments Appointment Date:04/10/2024 03:00:00 PM Scheduled Provider:JENNIFER MARTINO PA-C Location:[facility] Appointment Type:URO Office Visit [facility] evaluation + Plan note Future Scheduled Tests Radiology* XR Abdomen 1 View 08/05/[address] [facility] evalpvhwqt note* Diagnosis Women's annual routine gynecological examination documented in this encounter [employer] Work Phone: evaluation noteNo assessment information [facility] Work Phone: Evaluation noteNo InformationNoreynolds county general [facility] hospital [email or web address] Other Evaluation note* Diagnosis Post-menopausal bleeding Postmenopausal bleeding Inclusion cyst Sebaceous cyst documented in this encounter [facility] PoxelEvaluation note* Diagnosis Atherosclerosis of coronary artery of [place] heart without angina pectoris, unspecified vessel or lesion type 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 Ischemic cardiomyopathy Other specified forms of chronic ischemic heart disease Essential hypertension, benign documented in this encounter [facility] Work Phone: Evaluation note* Diagnosis Atherosclerosis of coronary artery of [place] heart without angina pectoris, unspecified vessel or lesion type 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 Essential hypertension, benign Hyperlipidemia, unspecified hyperlipidemia type Acute pancreatitis, unspecified complication status, unspecified pancreatitis type ([facility]) documented in this encounter [facility] Work Phone: Evaluation note* Diagnosis Atherosclerosis of coronary artery bypass graft of [place] heart without angina pectoris S/P PTCA (percutaneous transluminal coronary angioplasty) Postsurgical percutaneous transluminal coronary angioplasty status 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 Ischemic cardiomyopathy Other specified forms of chronic ischemic heart disease Essential hypertension Unspecified essential hypertension Mixed hyperlipidemia BMI 30.0-30.9,adult Statin intolerance documented in this encounter [facility] Work Phone: Evaluation note* Diagnosis Dry nose- Primary Other diseases of nasal cavity and sinuses Xerostomia Disturbance of salivary secretion Allergic rhinitis, unspecified seasonality, unspecified trigger [facility] Diagnosis Xerostomia- Primary Disturbance of salivary secretion documented [facility] this encounter [facility]* Diagnosis Acute pain of right wrist- Primary Tendonitis of wrist, right documented in this encounter [facility] HealthcareHistory and physical note Author Evert Bruno [facility] November 01, 2022 12:40pm Note Date/Time November 01, 2022 1 2:40pm [facility] ENTER [address] [place] [address] Gastroenterology H&P Signed Patient: Jose Alberto Saleem MR#: [id number] : 1965 Acct:[id number] Age/Sex: 57 / F Adm Date: 3 Loc: Room: Type: [facility] Attending Dr: Evert Bruno MD Copies [...] by Evert Bruno MD> 11/01/22 1240 [facility] Work Phone: History and physical note Author Evert Bruno [facility] November 02, 2022 2:14pm Note Date/Time November 02, 2022 2 :14pm [facility] ENTER [address] [place] [address] Gastroenterology H&P Signed Patient: Jose Alberto Saleem MR#: [id number] : 1965 Acct:[id number] Age/Sex: 57 / F Adm Date: 3 Loc: Room: Type: [facility] Attending Dr: Evert Bruno MD Copies [...] signed by Evert Bruno MD> 11/02/22 1414 [facility] Work Phone: History general Narrative - Reported* Type Description Date Medical History impaired fasting glucose Medical History heart disease, [place] stents, CABG Medical History Hypertension Medical History hyperlipidemia 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 -Follow up with PCP. -Office number [phone]. [facility] Work Phone: Hospital Discharge instructions Additional [...] problems. -Follow up with PCP. -Office number [phone]. [facility] Work Phone: Hospital Discharge instructions No data available for this section [facility] [place] [facility] InstructionsNot on filedocumented in this encounter [facility]ructions[facility] on filedocumented in this encounter [facility] System[facility]ructionsNot on filedocumented in this encounter [facility] No data available for this section [facility] [place] [facility] reason for referral (narrative)* Consultation (Routine) - Authorized Specialty Diagnoses / Procedures Referred By Manfred t Referred To Contact Cardiology Diagnoses Atherosclerosis of coronary artery of [place] heart without angina pectoris, unspecified vessel or lesion type History of coronary artery bypass graft Procedures Follow Up In Cardiology Celso Garibay DO [address] [place] [address] 2, [address] [address] Celso Garibay DO [address] [place] [address] 2, [place] [address] Referral ID Status Reason Start Date Expiration Date V isits Requested Visits Authorized [id number] Authorized 08/14/2023 08/13/2024 1 1 [facility] Work Phone: Summary Purpose Family History [...] FoundDocuments on File Type Date Recorded 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 * [place] [employer] is class I * Recommendations, [...] content) DATE CREATED AUTHOR 03/26/2018 [facility] DATE CREATED AUTHOR AUTHOR'S ORGANIZ ATION 03/26/2018 [facility] DATE CREATED AUTHOR AUTHOR'S ORGANIZ ATION 08/02/2022 [facility] dical Specialist DATE CREATED AUTHOR AUTHOR'S ORGANIZ ATION 08/17/2022 [facility] DATE CREATED AUTHOR AUTHOR'S ORGANIZ ATION 10/17/2022 [facility] DATE CREATED AUTHOR AUTHOR'S ORGANIZ ATION 06/23/2023 [facility] DATE CREATED AUTHOR AUTHOR'S ORGANIZ ATION 07/16/2023 [facility] DATE CREATED AUTHOR AUTHOR'S ORGANIZ ATION 01/19/2024 [facility] DATE CREATED AUTHOR AUTHOR'S ORGANIZ ATION 03/07/2024 [facility] DATE CREATED AUTHOR AUTHOR'S ORGANIZ ATION 08/06/2024 [facility] DATE CREATED AUTHOR AUTHOR'S ORGANIZ ATION 09/15/2024 [facility] DATE CREATED AUTHOR AUTHOR'S ORGANIZ ATION 10/16/2024 [facility] DATE CREATED AUTHOR AUTHOR'S ORGANIZ ATION 12/01/2024 [facility] dical Specialists [facility] DATE CREATED AUTHOR AUTHOR'S ORGANIZ ATION 01/22/2025 [facility] DATE CREATED AUTHOR AUTHOR'S ORGANIZ ATION 02/25/2025 [facility] Care Teams (unrecognized sec tion and [...] Active Evert Bruno MD Attending Provider Active Consulting Networking Engineer Relationship Specialty Start Date End Date Ashley Grigsby MD [address] [place] [address] PCP - General Family Medicine 08/19/19 Consulting Networking Engineer Relationship Specialty Start Date End Date Ashley Grigsby MD [address] [place] [address] PCP - General Family Medicine 08/19/19 Consulting Networking Engineer Relationship Specialty Start Date End Date Ashley Grigsby MD [address] [place] [address] PCP - General 08/17/21 Consulting Networking Engineer Relationship Specialty Start Date End Date Ashley Grigsby MD [address] [place] [address] PCP - General 08/17/21 Consulting Networking Engineer Relationship Specialty Start Date End Date Ashley Grigsby MD [address] [place] [address] PCP - General 08/17/21 Anita Hammonds, earth burnerSwager Operator 08/22/24 Consulting Networking Engineer Relationship Specialty Start Date End Date Ashley Grigsby MD [address] [place] [address] PCP - General 02/22/17 Consulting Networking Engineer Relationship Specialty Start Date End Date Ashley Grigsby MD [address] [place] [address] PCP - General 02/22/17 Consulting Networking Engineer Relationship Specialty Start Date End Date Ashley Grigsby MD [address] [place] [address] PCP - General 02/22/17 Consulting Networking Engineer Relationship Specialty Start Date End Date Ashley Grigsby MD [address] [place] [address] PCP - General Family Medicine 09/13/23 Consulting Networking Engineer Relationship Specialty Start Date End Date Ashley Grigsby MD [address] [place] [address] [phone] - General Family Medicine 09/13/23 REASON FOR VISIT (unrecogniz ed section and content) Specialty Diagnoses / Procedures Referred By Manfred flynn Referred To Contact Diagnoses Post-menopausal bleeding Inclusion cyst Post-menopausal bleeding [N95.0] Inclusion cyst [L72.0] Procedures ND HYSTEROSCOPY BX ENDOMETRIUM&/POLYPC W/WO D&C ND DESTRUCTION BENIGN LESIONS UP TO 14 DILATATION AND CURETTAGE HYSTEROSCOPY-REMOVAL OF INCLUSION CYST Gaby Phillips, DO [address] [place] [address] [facility] [address] [place] [address] Referral ID Status Reason Start Date Expiration Date Visits Re quested Visits Authorized [id number] 1 1 Reason Comments Annual Exam 1yr Specialty Diagnoses / Procedures Referred By Manfred flynn Referred To Contact Cardiology Diagnoses Atherosclerosis of coronary artery of [place] heart without angina pectoris, unspecified vessel or lesion type History of coronary artery bypass graft Procedures Follow Up In Cardiology Celso Garibay, DO [address] [place] [address], [address] [address] Phone: tel: fax: Celso Garibay, DO [address] [facility] 2, [address] [address] Phone: tel: fax: Referral ID Status Reason Start Date Expiration Date V isits Requested Visits Authorized [id number] Authorized 08/14/2023 08/13/2024 1 1 Reason Comments Follow-up [facility] discharge 08/22 Reason [...] dose, Starting on Sun06/18/23 at 1449, Until Tu06/19/23 at 1449, Nausea, Secondary antiemetic therapy., PACU [...] BE BASED ON THE PRIMARY CLINICAL RECORDS. [employer] provides no warranty or guarantee of the accuracy or completeness of information in this document.
== END 2025-03-04 20:15 | disposition home or self-care (01) ==
LOC: SLEEP 20:14
PROVIDERS: PCP Family Medicine; Visit Provider Family Medicine
DX: G47.33 Obstructive sleep apnea (adult) (pediatric) (principal)
CPT/HCPCS: 95811

== ENCOUNTER 2025-05-06 06:53 | Outpatient (OUT) | payer BC, SELFPAY ==
--- OUTSIDE RECORDS SUMMARY | 2024-09-10 09:15 | XMS_ITS | Continuity of Care Document ---
Author Organization [employer] [facility] Address [address] [facility] [place] [address] Phone Care Team Providers Care Survey Chief Name Role Phone Johanna Raygoza CNP Unavailable Unavailable Procedures Procedure Date OFFICE/OUTPATIENT VISIT, EST OFFICE/OUTPATIENT VISIT, EST OFFICE/OUTPATIENT VISIT, EST OFFICE/OUTPATIENT VISIT, EST OFFICE/OUTPATIENT VISIT, EST OFFICE/OUTPATIENT VISIT, EST OFFICE/OUTPATIENT VISIT, EST POSTOP FOLLOW-UP VISIT POSTOP FOLLOW-UP VISIT LAP GASTRIC BYPASS/DANRELL-EN-Y Gastric Bypass OFFICE/OUTPATIENT VISIT, EST OFFICE/OUTPATIENT VISIT, EST OFFICE CONSULTATION Advance Directives Directive Yes / No Effective Date File Name No Information Encounters Encounter Description Practice Location Reason(s) For Visit Diagnoses Date Provider Providers Copied on Encounter OFFICE/OUTPATI ENT VISIT, [facility] [employer] [facility], [address], [place], [place], [address], [place] tel:[phone] [facility] No Information Idalmis Spencer. [address] [facility] [address], [place], [address], [place]. tel:[phone] Referring Provider: Johanna Raygoza, [address] [facility] [address], [place], [address]. tel:[phone] OFFICE/OUTPATI ENT VISIT, [employer] [facility], [address], [place], [place], [address], [place] tel:[phone] [facility] No Information Idalmis Spencer. [address], [place], [place], [address], [place]. tel:[phone] Referring Provider: Johanna Ryagoza, [facility] [address], [place], [address]. tel:[phone] OFFICE/OUTPATI ENT VISIT, [employer] [facility], [address] [place] [address] [address], [place], [place], [address], [place] tel:[phone] [facility] No Information Idalmis Spencer. [address] [facility] [address], [place], [place], [address], [place]. tel:[phone] Referring Provider: Johanna Raygoza, [facility] [address] [facility] [address], [place], [address]. tel:[phone] OFFICE/OUTPATI ENT VISIT, [employer] [facility], [address] [facility] [facility] [address], [place], [place], [address], [place] tel:[phone] [facility] No Information Idalmis Spencer. [address] [facility] [address], [place], [place], [address], [place]. tel:[phone] Referring Provider: Johanna Raygoza, [address] [facility] [address], [place], [address]. tel:[phone] OFFICE/OUTPATI ENT VISIT, [employer] [facility], [address] [facility] [facility] [address], [place], [place], [address], [place] tel:[phone] [facility] No Information Idalmis Spencer. [address], [place], [place], [address], [place]. tel:[phone] Referring Provider: Johanna Raygoza, [address], [place], [address]. tel:[phone] OFFICE/OUTPATI ENT VISIT, [facility] [employer] [facility], [address] [place] [address] [address], [place], [place], [address], [place] tel:[phone] [facility] No Information Idalmis Spencer. [address] [place] [address] [address], [place], [place], [address], [place]. tel:[phone] Referring Provider: Johanna Raygoza, [address] [place] [address] [address], [place], [address]. tel:[phone] OFFICE/OUTPATI ENT VISIT, [facility] [employer] [facility], [address] [place] [address] [address], [place], [place], [address], [place] tel:[phone] [facility] No Information Idalmis Spencer. [address] [place] [address] [address], [place], [place], [address], [place]. tel:[phone] Referring Provider: Johanna Raygoza, [address] [place] [address] [address], [place], [address]. tel:[phone] [employer] [facility], [address] [place] [address] [address], [place], [place], [address], [place] tel:[phone] [facility] No Information Idalmis Spencer. [address] [place] [address] [address], [place], [place], [address], [place]. tel:[phone] Referring Provider: Johanna Raygoza, [address] [place] [address] [address], [place], [address]. tel:[phone] [facility], [address] [place] [address] [address], [place], [place], [address], [place] tel:[phone] [facility] No Information Idalmis Spencer. [address] [place] [address] [address], [place], [place], [address], [place]. tel:[phone] Referring Provider: Johanna Raygoza, [address] [place] [address] [address], [place], [address]. tel:[phone] [facility] [employer] [facility], [address] [place] [address] [address], [place], [place], [address], [place] tel:[phone] [facility] IP No Information Cady Mccurdy. [address] [place] [address] [address], [place], [place], [address], [place]. tel:[phone] Referring Provider: Kaz De Los Santos, [address] [place] [address] [address], [place], [address]. tel:[phone] [facility] [employer] [facility], [address] [place] [address] [address], [place], [place], [address], [place] tel:[phone] [facility] IP No Information Idalmis Spencer. [address] [place] [address] [address], [place], [place], [address], [place]. tel:[phone] Referring Provider: Johanna Raygoza, [address] [place] [address] [address], [place], [address]. tel:[phone] OFFICE/OUTPATI ENT VISIT, [facility] [employer] [facility], [address] [place] [address] [address], [place], [place], [address], [place] tel:[phone] [facility] No Information Cady Mccurdy. [address] [place] [address] [address], [place], [place], [address], [place]. tel:[phone] Referring Provider: Kaz De Los Santos, [address] [place] [address] [address], [place], [address]. tel:[phone] OFFICE/OUTPATI ENT VISIT, [facility] [employer] [facility], [address] [place] [address] [address], [place], [place], [address], [place] tel:[phone] [facility] No Information Cady Mccurdy. [address] [place] [address] [address], [place], [place], [address], [place]. tel:[phone] Referring Provider: Kaz De Los Santos, [address] [place] [address] [address], [place], [address]. tel:[phone] OFFICE CONSULTATION [facility], [address], [place], [place], [address], [place] tel:[phone] [facility] No Information Cady Mccurdy. [address] [facility] [address], [place], [place], [address], [place]. tel:[phone] Referring Provider: Kaz De Los Santos, [address] [facility] [address], [place], [address]. tel:[phone] Family History Family Member Type Diagnosis Age At Onset No Information Payers Payer name Insurance type Covered green party ID Raad gomez(eva Jones [id number] Social History Type Description Quantity Date Captured [...]
--- OUTSIDE RECORDS SUMMARY | 2025-03-05 07:14 | XMS_ITS ---
Author Organization [facility] [place] Address [address] [place] [address] Care Team Providers Care Machine Edge Bander Name Role Phone Deacon Dejesus Primary Care Provider [phone] REASON FOR VISIT rf Cevimeline Medications Medication SIG (Take, Route, Fr equency, Duration) Notes Start Date End Date Status Cevimeline HCl 30 MG 1 capsule Orally qi d for 90 days 02/12/2024 Active Encounters Encounter Location Date Provider Diagnosis [facility] [address] [place] [address] 03/05/2025 Deacon Dejesus Chronic pancreatitis K86.1 Assessments Encounter Date Diagnosis (ICD Code) Assessment Notes Treatment Notes Treatment Clinical Notes Section Notes 03/05/2025 Chronic pancreatitis (ICD-10 - K86.1) Plan Of Treatment Medication Medication Name Sig Start Date Stop Date Notes Cevimeline HCl 30 MG 1 capsule Orally qid for 90 days 01/29 Progress Notes * Tiarra SALEEM CDOB:[birth year] (59 yo F)Acc No.[id number]:03/05/2025 Patient: Megan HERNANDES Tiarra Vann :1965 A ge:59 Y S ex:Female Address:[address] [place], [address] * Refills Refill Cevimeline HCl Capsule, 30 MG, Orally, 360 Capsule, 1 capsule, qid, 90 days, Refills=3 * true * Date: Generated for Printi ng/Faxing/eTransmitting on: 0 05/06/2025 06:56 AM EDT
--- OUTSIDE RECORDS SUMMARY | 2025-03-05 08:11 | XMS_ITS ---
Author Organization [facility] [place] Address [address] [place] [address] Care Team Providers Care Deicer Element Winder Machine Name Role Phone Deacon Dejesus Primary Care Provider REASON FOR VISIT rf cevimeline Medications Medication SIG (Take, Route, Fr equency, Duration) Notes Start Date End Date Status Cevimeline HCl 30 MG 1 capsule Orally qi d for 90 days 02/12/2024 Active Encounters Encounter Location Date Provider Diagnosis [facility] [address] [place] [address] 03/05/2025 Deacon Dejesus Chronic pancreatitis K86.1 Assessments Encounter Date Diagnosis (ICD Code) Assessment Notes Treatment Notes Treatment Clinical Notes Section Notes 03/05/2025 Chronic pancreatitis (ICD-10 - K86.1) Plan Of Treatment Medication Medication Name Sig Start Date Stop Date Notes Cevimeline HCl 30 MG 1 capsule Orally qid for 90 days 01/29 Progress Notes * Tiarra SALEEM CDOB:[birth year] (59 yo F)Acc No.[id number]:03/05/2025 Patient: Megan HERNANDES Tiarra Vann :1965 A ge:59 Y S ex:Female Address:[address] [place], [address] * Refills Refill Cevimeline HCl Capsule, 30 MG, Orally, 360 Capsule, 1 capsule, qid, 90 days, Refills=3 * true * Date: Generated for Printi ng/Faxing/eTransmitting on: 0 05/06/2025 06:57 AM EDT
--- OUTSIDE RECORDS SUMMARY | 2025-04-16 04:08 | XMS_ITS ---
Author Organization [facility] [place] Address [address] [place] [address] Care Team Providers Care Cancer Center Director Name Role Phone Deacon Dejesus Primary Care Provider REASON FOR VISIT pink Medications Medication SIG (Take, Route, Frequency, Duration) Notes Start Date End Date Status Gskcvewl-Ecjnmnjbi-Lbqmzlf h 3.5-22436-5.1 1 drop into affected eye Ophthalmic Four times a day for 7 days 04/16/2025 Active Encounters Encounter Location Date Provider Diagnosis [facility] [address] [place] [address] 04/16/2025 Deacon Dejesus Plan Of Treatment Medication Medication Name Sig Start Date Stop Date Notes Homxwqld-Ilchnwteu-Zurwvvua 3.5-39534-0.1 1 drop into affected eye Ophthalmic Four times a day for 7 days 04/16/2025 Progress Notes * Tiarra SALEEM CDOB:[birth year] (59 yo F)Acc No.[id number]:04/16/2025 Patient: Megan Tiarra HERNANDES :1965 A ge:59 Y S ex:Female Address:[address] [place] [address], [address] * Refills Start Vazainyv-Vnsrpzeba-Xoukrbpr Suspension, 3.5-28784-2.1, Ophthalmic, 1.4 ML, 1 drop into affected eye, Four times a day, 7 days, Refills=1 * true * Date: Generated for Printi ng/Faxing/eTransmitting on: 0 05/06/2025 06:56 AM EDT
--- OUTSIDE RECORDS SUMMARY | 2025-05-06 06:56 | XMS_ITS | Encounter Summary ---
Author Organization [employer] Address [id number] [address] [place] [address] Care Team Providers Care Counter Tacker Name Role Phone Ziggy Dejesus MD Primary Care Provider [phone] Encounter Details Date Type Department Care Team (Late st Contact Info) Description 02/08/[address] [facility] Ear, Nose and Throat [address] [place] [address] Devaughn Messer MD PhD [address] [address] RETIRED 04/30/2024 [place] [address] Social History Tobacco Use Types [...] [facility] [address] [place] [address] Antonia Banda, PA-C [address] [facility] [address] [place] [address] documented as of this encounter Visit Diagnoses Not on filedocumented in this encounter Additional Health Concerns Assessment Noted Time PHQ-9 Depression Total Score: 0 10/13/19 21 3:43 PM EST documented as of this encounter Care Teams Counter Tacker Relationship Specialty Start Date End Date Ziggy Dejesus MD PCP - General 02/22/17 documented as of this encounter
--- OUTSIDE RECORDS SUMMARY | 2025-05-06 06:57 | XMS_ITS | Encounter Summary ---
Author Organization [facility] Address [address] [place] [address] Phone Care Team Providers Care Marionette Performer Name Role Phone Ziggy Dejesus MD Primary Care Provider [phone] Cindy Stoll DISPATCH CLERK-MANAGER BASKETBALL Unavailable [phone] Anita Hammonds RN Unavailable Unavailable Encounter Details Date Type Department Care Team (Late st Contact Info) Description 09/28/2021 Orders Only [facility] [address] [place] [address] Conversion, Onbase Social History Tobacco Use Types [...] Care Team (Late st Contact Info) Description 06/02/2025 11:10 AM EDT Office Visit [address] [phone] Celso Garibay DO [address] [facility] [address] [place] [address] 08/18/2025 11:20 AM EST Office Visit [address] [place] [address] Celso Garibay DO [address] [facility] [address] [place] [address] Scheduled Orders Name Type Priority Associated Diagnoses Orde r Schedule OUTSIDE LAB SCAN Lab Ordered: 09/28/2021 documented as of this encounter Visit Diagnoses Not on filedocumented in this encounter Care Teams Marionette Performer Relationship Specialty Start Date End Date Ziggy Dejesus MD [address] [facility] [place] [address] PCP - General 08/17/21 Cindy Stoll, DISPATCH CLERK-MANAGER BASKETBALL [address] [facility] [address] [place] [address] PCP - Karen LANEO PCP 01/29/22 06/30/22 Anita Hammonds, cement crusher operatorHotel Or Motel Cleaning Supervisor 08/22/24 10/03/24 documented as of this encounter
--- OUTSIDE RECORDS SUMMARY | 2025-05-06 06:57 | XMS_ITS | Encounter Summary ---
Author Organization [facility] Address [address] [place] [address] Phone Care Team Providers Care Package Clerk Name Role Phone Ziggy Dejesus MD Primary Care Provider [phone] Anita Hammonds RN Unavailable Unavailable Encounter Details Date Type Department Care Team (Late st Contact Info) Description 08/20/2024 Scanned Document [facility] [address] [place] [address] Scanning, Generic Provider Social History [...] Description 06/02/2025 11:10 AM EDT Office Visit [facility] [address] [facility] [address] [place] [address] Celso Garibay DO [address] [facility] [address] [place], [place] [address] 08/18/2025 11:20 AM EST Office Visit [facility] [address] [facility] [address] [place] [address] Celso Garibay, [address] [facility] [address] [place] [address] documented as of this encounter Visit Diagnoses Not on filedocumented in this encounter Care Teams Package Clerk Relationship Specialty Start Date End Date Ziggy Dejesus MD [address] [facility] [place] [address] PCP - General 08/17/21 Anita Hammonds, flooring graderRoll Hauler 08/22/24 10/03/24 documented as of this encounter
--- OUTSIDE RECORDS SUMMARY | 2025-05-06 06:57 | XMS_ITS | Clinical Summary ---
Author Organization [facility] Address [address] [facility], [address] [place] [address] Care Team Providers Care Fish Header Name Role Phone Ziggy Dejesus MD Primary Care Provider [phone] Allergies Active Allergy Reactions Criticality Noted Date [...] Description 11/03/2025 4:15 PM EST Office Visit [facility] Part of [address] [place], [place] [address] Gaby Murry, DO [address] [place] [address] [address] [place] [address] Annual Health Maintenance Due Date [...] Pap smear 02/07/2025 02/07/2022, 08/19/2019 Flu vaccine (#1) 05/01/2025 06/05/2023, , 2022, Additional history exists Breast cancer screen [...] HIGH RISK Routine 02/07/2022 8:18 AM EDT PRIMARY CARE NURSE PRACTITIONER CYTOLOGY Routine 02/07/2022 8:18 AM EDT HM MAMMOGRAPHY Routine 07/28/2021 from Last 3 Months or Most Recently Relevant to Health Maintenance Results * Human papillomavirus (HPV) DNA probe thin prep high risk (02/07/2022 8:18 AM EDT) Specimen Description .GENITAL - NOT SPECIFIED 02/07/2022 8:18 AM EDT [facility] HPV Sample .THIN PREP 02/07/2022 8:18 AM EDT [facility] HPV, Genotype 16 Not Detected Not Detected 02/07/2022 8:18 AM EDT [facility] HPV, Genotype 18 Not Detected Not Detected 02/07/2022 8:18 AM EDT [facility] HPV, High Risk Other Not Detected Not Detected 02/07/2022 8:18 AM EDT [facility] HPV, Interpretation 02/07/2022 8:18 AM EDT [facility] Comment: This test amplifies and detects DNA [...] Gaby Murry DO HEMATOLOGY ORDERABLES Final Result [facility] [address] [place] [address], [facility] [phone] [address] [phone] * PRIMARY CARE NURSE PRACTITIONER Cytology (02/07/2022 8:18 AM EDT) Cytology Report INTERPRETATION Cervical material, (ThinPrep vial, Imaging-assisted review): Specimen Adequacy: Satisfactory for evaluation. -Endocervical/tra nsformation zone component is absent. Descriptive Diagnosis: Negative for intraepithelial lesion or malignancy. Roaster Supervisor: TEREES BECERRA(ASCP) Electronically Signed Out terese/02/10/2022 Procedure/Addendum HPV Procedure Report Date Ordered: 02/08/2022 [...] Imaging-assisted review) Clinical History Postmenopausal Z01.419 Routine spool sorter exam without abnormal findings Co-Test: ThinPrep Pap with high risk HPV testing LMP: 05/19/2016 GYNECOLOGIC CYTOLOGY REPORT Patient Name: JOSE ALBERTO SALEEM. Med Rec: [id number] Path Number: [id number] [facility] CONSULTING PATHOLOGISTS [facility] EMERGENCY DEPARTMENT ANATOMIC PATHOLOGY [address] [place] [address] [facility] CERVICAL MATERIAL 02/07/2022 8:18 AM EDT 02/08/2022 8:18 AM EDT Gaby Murry DO PATHOLOGY/CYTOLOGY OR DERABLES Final Result Performing Organization Address City/State/[facility] Co de Phone Number [facility] [address] [place] [address], [facility] [phone] [phone] * MAMMOGRAPHY (07/28/2021) Anatomical Region Laterality Modality Other Gaby Murry DO HEALTH MAINTENANCE Fi nal Result from Last 3 Months or Most Recently Relevant to Health Maintenance Insurance BCBS OUT OF STATE Advance Directives * Full Code (Latest Code Status on File) Date Activated Date Inactivated Comments 06/18/2023 1:21 PM 06/18/2023 5:57 PM Care Teams Fish Header Relationship Specialty Start Date End Date Ziggy Dejesus MD [address] [place] [address] PCP - General Family Medicine 08/19/19
--- OUTSIDE RECORDS SUMMARY | 2025-05-06 06:57 | XMS_ITS | Encounter Summary ---
Author Organization [employer] Address [id number] [address] [place] [address] Care Team Providers Care Vamp Cut Out Worker Name Role Phone Ziggy Dejesus MD Primary Care Provider [phone] Encounter Details Date Type Department Care Team (Late st Contact Info) Description 06/28/2022 Telephone [facility] Ear, N[facility] and Throat [address] [place] [address] Jennifer Peng RMA Social History Tobacco Use [...] [facility] [address] [facility] [address] [place] [address] Antonia aBnda PA-C [address] [facility] [address] [place] [address] documented as of this encounter Visit Diagnoses Not on filedocumented in this encounter Additional Health Concerns Assessment Noted Time PHQ-9 Depression Total Score: 0 10/13/19 21 3:43 PM EST documented as of this encounter Care Teams Vamp Cut Out Worker Relationship Specialty Start Date End Date Ziggy Dejesus MD PCP - General 02/22/17 documented as of this encounter
--- OUTSIDE RECORDS SUMMARY | 2025-05-06 06:57 | XMS_ITS | Clinical Summary ---
Author Organization [facility] Address [facility] [place]-[id number] [address] [place] [address] Care Team Providers Care Agricultural Equipment Operator Name Role Phone Ziggy Dejesus MD Primary Care Provider [phone] Allergies Active Allergy Reactions Criticality Noted Date [...] (20 mg total) before bedtime. Active sod nifhy-rnlzcn-roupc z bottle (NEILMED SINUS RINSE COMPLETE) packet [...] (three) times a day with meals. Active dudetwlz-umxi-UK-c alcium &mins (THERAGRAN-M) 9 mg iron-400 mcg [...] 16 g 11 02/14/20 24 Active vit C,N-Sz-zlbbd-lutei n-zeaxan (PRESERVISION AREDS-2) 250-90-40-1 mg capsule Take [...] Kidney disease 07/10/2017 Acute myocardial infarction 07/10/2017 Immunizations Immunization Administration Dates Next Due COVID-19, [...] Description 06/24/2025 3:15 PM EDT Office Visit [facility] [address] [place] [address] Antonia Banda, PA-C [address] [facility] [address] [place] [address] Health Maintenance Due Date Last Done Comments Depression Screening 1976 DTaP,Tdap and Td Vaccines (1 - Tdap) 1983 COVID-19 Vaccine (4 2023-2 5 season) 2024 08/01/2021, 01/29/2021, 01/08/2021 Pap Smear 02/07/2025 02/07/2022, 01/29, 08/19/2019 Adult BMI Screening 02/28/2025 02/29/2024 Tobacco Screening 03/06/2025 03/06/2024 Influenza Vaccine 06/01/2025 06/05/2024, , 06/16/2022, Additional history exists Zoster (Shingles) Vaccine Completed 08/21/2022, Medical Devices Implanted Type Area Polygraph Technician Device Identifier Shelf Expiration Date Model / Serial / Lot Tissue Alloderm Nonmesh 2x4cm - Sna - [id number] Implanted:Qty : 1 on 09/06/2017 by Devaughn Messer MD PhD at [facility] Graft Nose [employer] 03/20/2018 [id number] / NA / [id number] Lens Iol Ultrasert 17.0d - [id number] - [id number] Implanted:Qty : 1 on 11/14/2018 by Nisha Stoll MD at [facility] Lens Left: Eye [employer] 09/30/2020 [id number] 17.0 / [id number] / NA Sinus Implant Propel Mini - Sna - [id number] Implanted:Qty : 1 on 01/03/2018 by Devaughn Messer MD PhD at [facility] Other Implant Nose [employer] 03/06/2018 [id number] / NA / [id number] Sinus Implant Propel - Sna - [id number] Implanted:Qty : 2 on 01/03/2018 by Devaughn Messer MD PhD at [facility] Stent Bilatera l: Nose [employer] 02/15/2018 [id number] / NA / [id number] Restor Implanted:Qty : 1 on 11/05/2018 by Nisha Stoll MD at [facility] Right: Eye [employer] 11/29/2019 [id number] / [id number] / NA Insurance [facility] Care Teams Agricultural Equipment Operator Relationship Specialty Start Date End Date Ziggy Dejesus MD PCP - General 02/22/17
--- OUTSIDE RECORDS SUMMARY | 2025-05-06 06:57 | XMS_ITS | Encounter Summary ---
Author Organization [employer] Address [facility]-[id number] [address] [place] [address] Care Team Providers Care Solid Waste Collector Name Role Phone Ziggy Dejesus MD Primary Care Provider [phone] Encounter Details Date Type Department Care Team ([facility] st Contact Info) Description 08/17/2022 Orders Only [facility] [address] [place] [phone] Antonia Banda, PA-C [address] [facility] [address] [place] [address] Social History Tobacco Use Types Packs/Day Years [...] [facility] [address] [place] [phone] Antonia Banda, PA-C [address] [facility] [address] [place] [address] documented as of this encounter Visit Diagnoses Not on filedocumented in this encounter Additional Health Concerns Assessment Noted Time PHQ-9 Depression Total Score: 0 10/13/19 21 3:43 PM EST documented as of this encounter Care Teams Solid Waste Collector Relationship Specialty Start Date End Date Ziggy Dejesus MD PCP - General 02/22/17 documented as of this encounter
--- OUTSIDE RECORDS SUMMARY | 2025-05-06 06:57 | XMS_ITS | Encounter Summary ---
Author Organization [employer] Address [id number] [address] [place] [address] Care Team Providers Care Hard Metals Engraver Hand Name Role Phone Ziggy Dejesus MD Primary Care Provider [phone] Reason for Visit * Reason Onset Date Comments Med Refill 09/26/2017 Encounter Details Date Type Department Care Team (Late Contact Info) Description 09/26/2017 Refill [facility] [address] [place] [address] [place] [phone] Alisia Bazzi RMA Social History Tobacco Use [...] Nose and Throat [address] [place] [address] Antonia Banda, PASergC [address] [address] documented as of this encounter Visit Diagnoses Not on filedocumented in this encounter Care Teams Hard Metals Engraver Hand Relationship Specialty Start Date End Date Ziggy Dejesus MD PCP - General 02/22/17 documented as of this encounter
--- OUTSIDE RECORDS SUMMARY | 2025-05-06 06:57 | XMS_ITS | Encounter Summary ---
Author Organization [employer] Address [id number] [address] [place] [address] Care Team Providers Care Territory Sales Representative Name Role Phone Ziggy Dejesus MD Primary Care Provider [phone] Reason for Visit * Reason Comments Med Refill Encounter Details Date Type Department Care Team (Late st Contact Info) Description 09/26/2023 Refill [facility] [address] [place] [phone] Antonia Banda, PA-C [address] [facility] [address] [place] [id number] Xerostomia Social History Tobacco Use Types Packs/Day [...] [facility] [address] [place] [phone] Antonia Banda, PA-C [address] [facility] [address] [place] [address] documented as of this encounter Visit Diagnoses Diagnosis Xerostomia Disturbance of salivary secretion documented in this encounter Additional Health Concerns Assessment Noted Time PHQ-9 Depression Total Score: 0 10/13/19 21 3:43 PM EST documented as of this encounter Care Teams Territory Sales Representative Relationship Specialty Start Date End Date Ziggy Dejesus MD PCP - General 02/22/17 documented as of this encounter
--- OUTSIDE RECORDS SUMMARY | 2025-05-06 06:57 | XMS_ITS | Encounter Summary ---
Author Organization [facility] Address [address] [place] [address] Phone Care Team Providers Care Preassembler And Inspector Name Role Phone Ziggy Dejesus MD Primary Care Provider [phone] Anita Hammonds RN Unavailable Unavailable Encounter Details Date Type Department Care Team (Late st Contact Info) Description 08/18/2024 Scanned Document [facility] [address] [place] [address] Scanning, Generic Provider Social History [...] Description 06/02/2025 11:10 AM EDT Office Visit [facility] [address] [facility] [address] [place] [phone] Celso Garibay DO [address] [facility] [address] [place], [place] [phone] 08/18/2025 11:20 AM EST Office Visit [facility] [address] [facility] [address] [place] [phone] Celso Garibay, [address] [place] [address] documented as of this encounter Procedures Procedure Name Priority Date/Time Associated Diagnosis Comments OUTSIDE IMAGING SCAN 08/18/2024 documented in this encounter Results * OUTSIDE IMAGING SCAN (08/18/2024) Anatomical Region Laterality Modality Other Narrative 08/18/2024 Ordered by an unspecified provider. us Generic Provider Scanning OUTSIDE SCAN Final Result documented in this encounter Visit Diagnoses Not on filedocumented in this encounter Care Teams Preassembler And Inspector Relationship Specialty Start Date End Date Ziggy Dejesus MD [address] [facility] [place] [address] PCP - General 08/17/21 Anita Hammonds, manager utilization managementLibrary Services Dean 08/22/24 10/03/24 documented as of this encounter
--- OUTSIDE RECORDS SUMMARY | 2025-05-06 06:57 | XMS_ITS | Patient Health Record ---
Author Organization The [facility] in [place] Address [address] [place] [address] Care Team Providers Care Rig Hand Name Role Phone Deacon Dejesus Primary Care [...] ctive Results Component Value Reference Range Notes FOLATE Reviewed date:08/05/2024 06:07:34 PM Interpretation: Performing Lab: Notes/Report: [facility] , Folate 34.40 8.60-58.90 ng/mL Performing Lab: see note ML - [facility] LB VITAMIN D 25 [place] Reviewed date:08/05/2024 06:07:34 PM Interpretation: Performing Lab: Notes/Report: [facility] , Vitamin D 69.2 <20 ng/mL Vit D deficient 20-<30 ng/mL Vit D insufficient 30-100 ng/mL Vit D sufficient >100 ng/mL Potential Toxicity Performing Lab: see note ML - [facility] LB Vitamin B12 Reviewed date:08/06/2024 09:18:02 PM Interpretation: Performing Lab: Notes/Report: [facility] , Vitamin B12 >1999 232-1245 pg/mL Performed at: - [facility] [id number] Biomedical Engineering Technologist: Afshin Martinez PhD, Phone: [phone] Performing Lab: see note - [facility] LB ECG 12 lead Reviewed date:10/05/2024 08:20:23 PM Interpretation: Performing Lab: Notes/Report: Source Facility: [place] [address] [place] [address] Electrocardiograph Report Signed Patient: JOSE ALBERTO SALEEM MR#: [id number] : 1965 Acct:[id number] Age/Sex: 59 / F ADM Date: 09/30/24 Loc: [place] 215-[address]: Ashley Dejesus M.D. Ordering Physician: Cyrus Woodall M.D. 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 Ordering Physician: Cyrus Woodall M.D. Date of Service: 09/30/24 Procedure(s): ECG 12 lead Accession Number(s): [id number] cc: The [facility] Test Date: 2024-09-30 Pat Name: JOSE ALBERTO MAJANO GGS Department: 88 Room: - Gender: Female Distance Education Faculty Liaison: : 1965 Requ ested By: ASHLEY DEJESUS Order Number: [id number] Reading MD: ALIREZA BULLOCK Measurements Intervals [place] Rate: 70 P: 63 KS: 164 QRS: -43 QRSD: 84 T: 30 QT: 388 QTc: 409 Interpretive Statements 1100 Sinus rhythm 3114 Cannot rule out anterior myocardial infarction, age undetermined 7200 Abnormal left a xis deviation 8102 Low QRS voltage in chest leads 9150 abnormal ECG Electronically Yaz d On 10-02-2024 16:30:09 EST by ALIREZA BULLOCK Dictated By: Alireza Bullock D.O. Signed By: 10/02/24 1630 DD/ 1738 TD/TT: Ice Plant Operator: LIP[place] Reviewed date:10/01/2024 03:36:44 PM Interpretation: Performing Lab: Notes/Report: The [facility] , Lipase 227.0 16.0-77.0 U/L Performing Lab: see note ML - The [facility] LB US right upper quadrant Reviewed date:10/05/2024 08:20:23 PM Interpretation: Performing Lab: Notes/Report: Source Facility: [facility] [place] [address] Ultrasound Report Signed Patient: JOSE ALBERTO SALEEM MR#: [id number] : 1965 Acct:[id number] Age/Sex: 59 / F ADM Date: 09/30/24 Loc: MS 215-[address]: Ashley Dejesus M.D. Ordering Physician: Ashley Dejesus M.D. Date of Service: 10/02/24 Procedure(s): US right upper quadrant Accession Number(s): [id number] cc: Ashley Dejesus M.D. [place] [address] Patient Name: JOSE ALBERTO SALEEM MRN: [id number] date: 1965 Sex: F Assigned Patient Location: MS Current Patient Location: [place] Accession/Order Number: [id number] Exam Date: 10/02/2024 07:40 Report Date: 10/02/2024 [...] Dictated By: Jae Wilson M.D. 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 Ordering Physician: Ashley Dejesus M.D. Date of Service: 10/02/24 Procedure(s): US rig ht upper quadrant Accession Number(s): [id number] cc: Ashley Dejesus M.D. [place] [address] Patient Name: JOSE ALBERTO SALEEM MRN: [id number] date: 1965 Sex: F Assigned Patient Location: MS Current Patient Loca tion: MS Accession/Order Numb er: [id number] Exam Date: 10/02/2024 07:40 Report Date: 10/02/2024 [...] Dictated By: Marshal Wilson M.D. Signed By: 10/02/24842 DD/ 0 TD/TT: Ice Plant Operator: AMYL[place] Reviewed date:01/04/2025 03:44:31 PM Interpretation: Performing Lab: Notes/Report: The [facility] , Amylase 306 25-115 U/L RESULTS CALLED TO COLE SYKES LPN at 0929 Performing Lab: see note ML - The [facility] LB LIPASE Reviewed date:01/04/2025 03:44:31 PM Interpretation: Performing Lab: Notes/Report: The [facility] , Lipase 234.0 16.0-77.0 U/L Performing Lab: see note ML - [facility] LB PROF 14(COMP METB) Reviewed date:01/04/2025 03:44:31 PM Interpretation: Performing Lab: Notes/Report: The [facility] , Sodium 144 136-145 mmol/L Potassium 4.3 [...] 1.2 Performing Lab: see note ML - [facility] LB CBC AUTO DIFF Reviewed date:01/04/2025 03:44:31 PM Interpretation: Performing Lab: Notes/Report: The [facility] , White Blood Count 6.5 4.0-11.0 10 [...] Performing Lab: see note ML - The [facility] LB PTT Reviewed date:01/04/2025 03:44:31 PM Interpretation: Performing Lab: Notes/Report: The [facility] , Partial Thromboplastin Time 31.4 22.3-36.2 sec Performing Lab: see note ML - [facility] Prothrombin Time INR Reviewed date:01/04/2025 03:44:31 PM Interpretation: Performing Lab: Notes/Report: The [facility] , Prothrombin Time 10.9 9.0-11.6 sec INR 1.03 DESIRED INR: 2.0-3.0 CONDITIONS NOT LISTED BELOW 2.5-3.5 FOR PROSTHETIC HEART VALVE REPLACEMENT 2.5-3.5 RECURRENT THROMBOSIS Performing Lab: see note ML - [facility] FERRITIN Reviewed date:08/05/2024 06:07:34 PM Interpretation: Performing Lab: Notes/Report: The [facility] , Ferritin 42.0 8.0-252.0 ng/mL Performing Lab: see note ML - [facility] IRON AND TIBC Reviewed date:08/05/2024 06:07:34 PM Interpretation: Performing Lab: Notes/Report: The [facility] , Iron 73.0 50.0-170.0 ug/dL Total Iron Binding Capacity 348.0 250.0-450.0 ug/dL Percent Iron Saturation 21.0 Performing Lab: see note ML - [facility] MAGNESIUM Reviewed date:08/05/2024 03:01:27 PM Interpretation: Performing Lab: Notes/Report: The [facility] , Magnesium 2.1 1.8-2.4 mg/dL Performing Lab: see note ML - [facility] PHOSPHORUS Reviewed date:08/05/2024 03:01:27 PM Interpretation: Performing Lab: Notes/Report: The [facility] , Phosphorus 3.8 2.6-4.7 mg/dL Performing Lab: see note ML - [facility] LB PROF 14(COMP METB) Reviewed date:08/05/2024 03:01:27 PM Interpretation: Performing Lab: Notes/Report: The [facility] , Sodium 139 136-145 mmol/L Potassium 3.9 [...] 1.1 Performing Lab: see note ML - [facility] LB Vitamin B1 (Thiamine), Blood Reviewed date:08/09/2024 04:01:33 PM Interpretation: Performing Lab: Notes/Report: [facility] , Vitamin B1 (Thiamine), Blood 180.1 66.5-200.0 nmol/L This test was developed and its performance characteristics determined by [facility]. It has not been cleared or approved by the Food and Drug Administration. Performed at: [address] [id number] Biomedical Engineering Technologist: Toni Guidry MD, Phone: [phone] Performing Lab: see note - [facility] LB CBC AUTO DIFF Reviewed date:10/01/2024 03:36:44 PM Interpretation: Performing Lab: Notes/Report: [facility] , White Blood Count 6.7 4.0-11.0 [...] 3/uL Performing Lab: see note ML - [facility] LB LACTATE or LACTIC ACID Reviewed date:10/01/2024 03:36:44 PM Interpretation: Performing Lab: Notes/Report: The [facility] , Lactate/Lactic Acid 1.0 0.4-2.0 mmol/L Performing Lab: see note ML - [facility] LB LIPASE Reviewed date:10/01/2024 03:36:44 PM Interpretation: Performing Lab: Notes/Report: The [facility] , Lipase 163.0 16.0-77.0 U/L Performing Lab: see note ML - [facility] LB LIPID PROFILE Reviewed date:10/01/2024 03:36:44 PM Interpretation: Performing Lab: Notes/Report: The [facility] , Triglycerides 95 <=150 mg/dL Cholesterol 219 [...] RISK Performing Lab: see note ML - [facility] LB MAGNESIUM Reviewed date:10/01/2024 03:36:44 PM Interpretation: Performing Lab: Notes/Report: The [facility] , Magnesium 2.3 1.8-2.4 mg/dL Performing Lab: see note - [facility] LB PTT Reviewed date:10/01/2024 03:36:44 PM Interpretation: Performing Lab: Notes/Report: The [facility] , Partial Thromboplastin Time 30.2 22.3-36.2 sec Performing Lab: see note - [facility] LB Prothrombin Time INR Reviewed date:10/01/2024 03:36:44 PM Interpretation: Performing Lab: Notes/Report: The [facility] , Prothrombin Time 10.8 9.0-11.6 sec INR 1.02 DESIRED INR: 2.0-3.0 CONDITIONS NOT LISTED BELOW 2.5-3.5 FOR PROSTHETIC HEART VALVE REPLACEMENT 2.5-3.5 RECURRENT THROMBOSIS Performing Lab: see note - [facility] CT abdomen pelvis w con Reviewed date:10/01/2024 03:36:44 PM Interpretation: Performing Lab: Notes/Report: Source Facility: [place] [address] CT Scan Report Signed Patient: JOSE ALBERTO SALEEM MR#: [id number] : 1965 Acct:[id number] Age/Sex: 59 / F ADM Date: 09/30/24 Loc: ER Attending Dr: Ordering Physician: Cyrus Woodall M.D. Date of Service: 09/30/24 Procedure(s): CT abdomen pelvis w con Accession Number(s): [id number] cc: Ashley Dejesus M.D. [place] [address] Patient Name: JOSE ALBERTO SALEEM MRN: [id number] date: 1965 Sex: F Assigned Patient Location: ER Current Patient Location: ED.MAIN Accession/Order Number: [id number] Exam Date: 09/30/2024 18:06 Report Date: 09/30/2024 [...] M.D. Signed By: 09/30/241852 DD/ 49 TD/TT: Ice Plant Operator: [place] [address] CT Scan Report Signed Patient: SHEILA SALEEM MR#: [id number] : 1965 Acct:[id number] Age/Sex: 59 / F ADM Date: 09/30/24 Loc: ER Attending Dr: Ordering Physician: Cyrus Woodall M.D. Date of Service: 09/30/24 Procedure(s): CT abd omen pelvis w con Accession Number(s): [id number] cc: Ashley Dejesus M.D. [address] [address] Patient Name: JOSE ALBERTO SALEEM MRN: [id number] date: 1965 Sex: F Assigned Patient Location: ER Current Patient Loca tion: ED.MAIN Accession/Order Numb er: [id number] Exam Date: 18:06 Report Date: 09/30/2024 18:50 [...] pancreatic duct unchanged. Pancreatic calcifications consistent with admitting clerk jenae pancreatitis again noted. Benign-appearing right renal cyst. 3. Large amount of g as will throughout the colon especially rectum which appears distended. Electronically authenticated by: RAMANDEEP POTTER Date: 09/30/2024 18:50 Dictated By: Ramandeep Potter M.D. Signed By: 09/30/241852 DD/ 49 TD/TT: Ice Plant Operator: AMMONIA Reviewed date:10/01/2024 03:36:44 PM Interpretation: Performing Lab: Notes/Report: The [facility] , Ammonia 26 11-32 umol/L Performing Lab: see note ML - The [facility] LB CBC AUTO DIFF Reviewed date:10/01/2024 03:36:44 PM Interpretation: Performing Lab: Notes/Report: The [facility] , White Blood Count 4.8 4.0-11.0 10 [...] 3/uL Performing Lab: see note ML - [facility] LIPASE Reviewed date:10/01/2024 03:36:44 PM Interpretation: Performing Lab: Notes/Report: The [facility] , Lipase 57.0 16.0-77.0 U/L Performing Lab: see note - [facility] PROF 14(COMP METB) Reviewed date:10/01/2024 03:36:44 PM Interpretation: Performing Lab: Notes/Report: The [facility] , Sodium 142 136-145 mmol/L Potassium 4.2 [...] 1.1 Performing Lab: see note ML - [facility] LB Blood Culture 1 Reviewed date:10/06/2024 08:37:09 PM Interpretation: Performing Lab: Notes/Report: The [facility] , Blood Culture 1 See Below For Report Blood Culture 1 NG5D NO GROWTH AT 5 DAYS. Performing Lab: see note - [facility] LB Blood Culture 2 Reviewed date:10/06/2024 08:37:09 PM Interpretation: Performing Lab: Notes/Report: The [facility] , Blood Culture 2 See Below For Report Blood Culture 2 NG5D NO GROWTH AT 5 DAYS. Performing Lab: see note ML - The [facility] LB CBC AUTO DIFF Reviewed date:10/05/2024 08:20:23 PM Interpretation: Performing Lab: Notes/Report: The [facility] , White Blood Count 5.4 4.0-11.0 10 [...] Performing Lab: see note ML - The [facility] LB LIPASE Reviewed date:10/05/2024 08:20:23 PM Interpretation: Performing Lab: Notes/Report: The [facility] , Lipase 168.0 16.0-77.0 U/L Performing Lab: see note ML - [facility] LB PROF 14(COMP METB) Reviewed date:10/05/2024 08:20:23 PM Interpretation: Performing Lab: Notes/Report: The [facility] , Sodium 143 136-145 mmol/L Potassium 3.6 [...] 1.1 Performing Lab: see note ML - [facility] LB LIPASE Reviewed date:10/05/2024 08:20:23 PM Interpretation: Performing Lab: Notes/Report: The [facility] , Lipase 42.0 16.0-77.0 U/L Performing Lab: see note ML - [facility] LB PROF 14(COMP METB) Reviewed date:10/05/2024 08:20:23 PM Interpretation: Performing Lab: Notes/Report: The [facility] , Sodium 141 136-145 mmol/L Potassium 3.6 [...] Performing Lab: see note ML - The [facility] LB LIPASE Reviewed date:10/05/2024 08:20:23 PM Interpretation: Performing Lab: Notes/Report: The [facility] , Lipase 75.0 16.0-77.0 U/L Performing Lab: see note ML - [facility] LB CBC AUTO DIFF Reviewed date:01/04/2025 03:44:31 PM Interpretation: Performing Lab: Notes/Report: The [facility] , White Blood Count 5.0 4.0-11.0 10 [...] 3/uL Performing Lab: see note ML - [facility] LB LACTATE or LACTIC ACID Reviewed date:01/04/2025 03:44:31 PM Interpretation: Performing Lab: Notes/Report: The [facility] , Lactate/Lactic Acid 0.9 0.4-2.0 mmol/L Performing Lab: see note ML - [facility] LB Troponin I High Sensitivity Reviewed date:01/04/2025 03:44:31 PM Interpretation: Performing Lab: Notes/Report: The [facility] , Troponin I High Sensitivity 6.1 4.0-51.3 pg/mL CUT-OFF POINTS HAVE BEEN ESTABLISHED BASED ON THE FOURTH UNIVERSAL DEFINITION OF MYOCARDIAL INFARCTION. THE UPPER REFERENCE LIMIT (URL) OF TROPONIN, DEFINED THE 99TH PERCENTILE OF cTnI DISTRIBUTION IN A REFERENCE POPULATION, HAS BEEN CONFIRMED THE DECISION THRESHOLD FOR IN DIAGNOSIS. 99TH PERCENTILE = 51.4 PG/ML NOTE: HIGH-SENSITIVITY TROPONIN ASSAY IS NOT INTENDED TO BE USED IN ISOLATION BUT SHOULD BE INTERPRETED IN CONJUNCTION WITH OTHER DIAGNOSTIC AND CLINICAL INFORMATION. Performing Lab: see note ML - [facility] LB UA Micro, reflex to culture Reviewed date:01/04/2025 03:44:31 PM Interpretation: Performing Lab: Notes/Report: The [facility] , Color Urine LT. YELLOW YELLOW Clarity Urine CLEAR CLEAR Specific [place] Urine 1.010 1.005-1.025 pH Urine 7.5 5.0-9.0 [...] #/LPF Performing Lab: see note ML - [facility] LB PROF 14(COMP METB) Reviewed date:01/04/2025 03:44:31 PM Interpretation: Performing Lab: Notes/Report: The [facility] , Sodium 141 136-145 mmol/L Potassium 4.3 [...] 1.1 Performing Lab: see note ML - [facility] LB LIPASE Reviewed date:01/04/2025 03:44:31 PM Interpretation: Performing Lab: Notes/Report: The [facility] , Lipase 569.0 16.0-77.0 U/L Performing Lab: see note ML - [facility] LB CBC AUTO DIFF Reviewed date:08/05/2024 02:30:38 PM Interpretation: Performing Lab: Notes/Report: The [facility] , White Blood Count 4.5 4.0-11.0 10 [...] 3/uL Performing Lab: see note ML - [facility] LB AMYLASE Reviewed date:09/29/2024 08:35:22 PM Interpretation: Performing Lab: Notes/Report: The [facility] , Amylase 295 25-115 U/L Performing Lab: see note ML - [facility] LB LIPASE Reviewed date:09/29/2024 08:35:22 PM Interpretation: Performing Lab: Notes/Report: The [facility] , Lipase 737.0 16.0-77.0 U/L Performing Lab: see note ML - [facility] LB LIPID PROFILE Reviewed date:09/29/2024 08:35:22 PM Interpretation: Performing Lab: Notes/Report: The [facility] , Triglycerides 205 <=150 mg/dL Cholesterol 232 [...] RISK Performing Lab: see note ML - [facility] LB PROF 14(COMP METB) Reviewed date:09/29/2024 08:35:22 PM Interpretation: Performing Lab: Notes/Report: The [facility] , Sodium 143 136-145 mmol/L Potassium 4.2 [...] 1.1 Performing Lab: see note ML - [facility] LB AMYLASE Reviewed date:10/01/2024 03:36:44 PM Interpretation: Performing Lab: Notes/Report: The [facility] , Amylase 234 25-115 U/L Performing Lab: see note ML - [facility] LB LIVER PROFILE Reviewed date:10/01/2024 03:36:44 PM Interpretation: Performing Lab: Notes/Report: The [facility] , Bilirubin Total 0.3 0.2-1.0 mg/dL Bilirubin Direct 0.1 0.0-0.2 mg/dL Aspartate Amino Transferase 29 15-37 U/L Alanine Aminotransferase 51 14-59 U/L Alkaline Phosphatase 114 46-116 U/L Total Protein 7.3 6.4-8.2 g/dL Albumin Level 3.8 3.4-5.0 g/dL Globulin 3.5 Albumin Globulin Ratio 1.1 Performing Lab: see note ML - [facility] LB PROF CHEM 8 (BAS METB) Reviewed date:10/01/2024 03:36:44 PM Interpretation: Performing Lab: Notes/Report: The [facility] , Sodium 140 136-145 mmol/L Potassium 4.2 [...] mg/dL Performing Lab: see note ML - [facility] UA RANDOM W or MICROSCOPIC Reviewed date:10/01/2024 03:36:44 PM Interpretation: Performing Lab: Notes/Report: The [facility] , Color Urine LT. YELLOW YELLOW Clarity Urine CLEAR CLEAR Specific [place] Urine 1.010 1.005-1.025 pH Urine 7.0 5.0-9.0 [...] #/LPF Performing Lab: see note ML - [facility] LB AMMONIA Reviewed date:01/04/2025 03:44:31 PM Interpretation: Performing Lab: Notes/Report: The [facility] , Ammonia 24 11-32 umol/L Performing Lab: see note ML - [facility] LB AMYLASE Reviewed date:01/04/2025 03:44:31 PM Interpretation: Performing Lab: Notes/Report: The [facility] , Amylase 136 25-115 U/L Performing Lab: see note - [facility] LB CBC AUTO DIFF Reviewed date:01/04/2025 03:44:31 PM Interpretation: Performing Lab: Notes/Report: The [facility] , White Blood Count 5.0 4.0-11.0 10 [...] Performing Lab: see note ML - The [facility] LB LIPASE Reviewed date:01/04/2025 03:44:31 PM Interpretation: Performing Lab: Notes/Report: The [facility] , Lipase 41.0 16.0-77.0 U/L Performing Lab: see note ML - The [facility] LB LIPID PROFILE Reviewed date:01/04/2025 03:44:31 PM Interpretation: Performing Lab: Notes/Report: The [facility] , Triglycerides 124 <=150 mg/dL Cholesterol 189 [...] HIGH RISK Performing Lab: see note - [facility] LB PROF 14(COMP METB) Reviewed date:01/04/2025 03:44:31 PM Interpretation: Performing Lab: Notes/Report: The [facility] , Sodium 144 136-145 mmol/L Potassium 4.2 [...] Performing Lab: see note ML - The [facility] LB Reason For Referral Diagnosis 1 Chronic pancreatitis (K86.1) Referral Organization [facility] Referring Provider First Name Deacon Referring Provider Last Name Anjelica Referring Provider Speciality Family [facility] icine Referred Provider Chauncey Cooper Referred Provider Specialty Gastroentero logy Referral Priority Routine Medications Medication SIG (Take, Route, Frequency, Duration) Notes Start Date End Date Status Nystatin 326901 UNIT/GM 1 application Externally Twice a day for 30 days 11/12/2023 Active Pancrelipase (Ayp-Krel-Htag) 76096-29610 UNIT 1 capsule Orally ac and hs [...] Orally B ID for 90 days Active Cevimeline HCl 30 MG 1 capsule Orally qi d for 90 days 02/12/2024 Active hydroCHLOROthiazide 25 MG TAKE 1 TABLET BY MOUTH EVERY MORNING for 30 Active Clopidogrel Bisulfate 75 MG 1 tablet Ora lly Once a day 08/27/2024 Active traMADol HCl 50 MG 1 tablet as needed Orally 4 times a day for 7 days 01/24/2024 Active Aspirin Low Dose 81 MG Oral for 90 Days Active PreserVision AREDS A ctive RABEprazole Sodium 20 MG TAKE 1 TABLET T WICE A DAY for 90 days Active Gxzmqcmw-Arlfakdtk-Uydwqxjx 3.5-72323-6.1 1 drop into affected eye Ophthalmic Four times a day for 7 days 04/16/2025 Active Fluticasone Propionate 50 MCG/ACT INSTILL 1 SPRAY IN EACH NOSTIRL TWICE A DAY. 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 Problem Snoring (35768145) Snoring (R06.83) Active conf irmed Problem Right upper quadrant pain (364418371) Right upper quadrant pain (R10.11) Active confirmed Problem Abdominal pain (94420014) Abdominal pain (R10.9) Active confirmed Problem Fatigue (32123753) Fatigue (R53.83) Active conf irmed Problem Hyperlipidemia (93278069) Hyperlipidemia (E78.5) Active confirmed Problem Hyperlipidaemia (91228389) Hyperlipemia (E78.5) Active confirmed Problem Hypertension (27973598) Hypertension (I10) Active confirmed Problem Gastroesophageal reflux disease (019478669) GERD (gastroesophageal reflux disease) (K21.9) Active confirmed Problem Coronary artery disease (00655627) CAD (coronary artery disease) (I25.10) Active confirmed Problem Ischemic cardiomyopathy (721689548) Cardiomyopathy, ischemic (I25.5) Active confirmed Problem Depression (563983450) Depression (F32.9) Active confirmed Problem Essential hypertension (49095337) Benign essential HTN (I10) Active confirmed Problem Hypertriglyceridemia (163968264) Hypertriglyceridemia (E78.1) Active confirmed Problem Arthralgia (24458707) Arthralgia (M25.50) Active confirmed Problem Chronic pancreatitis (665077002) Chronic pancreatitis (K86.1) Active confirmed Problem Essential hypertension (52168410) BP (high blood pressure) (I10) Active confirmed Problem hypercholesterolemia (disorder) (29368506) Hypercholesteremia (E78.00) Active confirmed Problem Hypercholesterolemia (55722088) Hypercholesterolemia (E78.00) Active confirmed Problem Type II diabetes mellitus without complication (780314866) Controlled type 2 diabetes mellitus (E11.9) Active confirmed Problem Acute UTI (urinary tract infection) (746813618) Acute UTI (urinary tract infection) (N39.0) Active confirmed Problem Old myocardial infarction (0900774) Acute myocardial infarct greater than 3 months ago (I25.2) Active confirmed Problem Acute pancreatitis (867174998) Acute pancreatitis (K85.90) Active confirmed Vital Signs Temperature 97.6 degrees Fahrenheit 02/18/2025 Blood pressure diastolic 82 mm Hg 02/18/2025 Height 63 in 02/18/2025 Blood pressure systolic 140 mm Hg 02/18/2025 Weight 179 lbs 02/18/2025 BMI 31.7 kg/m2 02/18/2025 Procedures Procedure Date Ordered Date Performed Result Body Sit e Sleep study - Diagnostic Polysonogram 01/08/2025 N/A Encounters Encounter Location Date Provider Diagnosis [facility] [address] [place] [facility] [place] [address] 04/16/2025 Deacon estefani [facility] [address] [place] [address] 11/10/2024 Deacon estefani [facility] [address] [place] [address] 11/27/2024 Deacon Dejesus Acute pancreatitis K 85.90 [facility] [address] [facility] [address] 01/02/2025 Deacon Dejesus [facility] [address] [place] [address] 02/09/2025 Deacon Dejesus [facility] [address] [place] [address] 03/05/2025 Deacon Dejesus Chronic pancreatitis K86.1 [facility] [address] [place] [place] [address] 03/05/2025 Deacon Hoy Chronic pancreatitis K86.1 [facility] [address] [place] [place] [address] 08/05/2024 Deacon Gordilloy [facility] [address] [place] [place] [address] 08/20/2024 Deacon Gordilloy [facility] [address] [place] [facility] [place] [place] [address] 09/25/2024 Deacon Dejesus [facility] [address] [place] [address] 09/29/2024 Deacon Dejesus [facility] [address] [place] [place] [address] 10/03/2024 Deacon Dejesus [facility] [address] [place] [address] 10/07/2024 Deacon Hoy Chronic pancreatitis K86.1 [facility] [address] [place] [place] [place] [address] 06/17/2024 Deacon Hoy Unspecified abdomina l pain R10.9 [facility] [address] [place] [address] 08/27/2024 Deacon Hoy CAD (coronary artery disease) I25.10 ; Hypertriglyceridemia E78.1 and Hypertension I10 [facility] [address] [place] [address] 10/07/2024 Deacon Hoy Chronic pancreatitis K86.1 [facility] [address] [place] [place] [address] 01/08/2025 Deacon Hoy Fatigue R53.83 ; Sno ring R06.83 and Chronic pancreatitis K86.1 [facility] [address] [place] [address] 02/18/2025 Deacon Hoy Acute bronchitis, un specified organism J20.9 Assessments Encounter Date Diagnosis (ICD Code) Assessment Notes Treatment Notes Treatment Clinical Notes Section Notes 08/27/2024 CAD (coronary artery disease) (ICD-10 - I25.10) 08/27/2024 Hypertriglyceridemia (ICD-10 - E78.1) 10/07/2024 Chronic pancreatitis (ICD-10 - K86.1) referral to Dr Ross 01/08/2025 Fatigue (ICD-10 - R53.83) 01/08/2025 Snoring (ICD-10 - R06.83) 02/18/2025 Acute bronchitis, unspecified organism (ICD-10 - J20.9) Rest and drink more liquids, especially water. You may use a humidifier or vaporizer to help keep the drainage moist. Vpzi-xbo-ryrgppw Nasal Saline may help the stuffy and runny nose. Use Ibuprofen and or Tylenol as needed for fever, chills, body aches or pain. Children 5 years old should not be given jkqx-nhh-unmphsj cough and cold medications such as guaifenesin and dextromethorphan. If you're over age 5, you may try imhe-aua-lmciyyi cold medications such as guaifenesin and dextromethorphan, [...] K86.1) 11/27/2024 Acute pancreatitis (ICD-10 - K85.90) 03/05/2025 Chronic pancreatitis (ICD-10 - K86.1) 03/05/2025 Chronic pancreatitis (ICD-10 - K86.1) 01/08/2025 Chronic pancreatitis (ICD-10 - K86.1) 08/27/2024 [...] GFR 11/27/2024 CMP - Comprehensive Metabolic Panel 05/0 11/2023 CBC W/AUTO DIFF 01/31/2024 CBC W/AUTO DIFF 11/27/2024 AMYLASE 11/27/2024 AMYLASE 08/27/2024 CULTURE URINE 11/12/2023 CULTURE URINE 04/28/2024 LIPASE 08/27/2024 LIPASE 11/27/2024 LIPID PROFILE 08/27/2024 LIVER PROFILE 11/13/2023 PROF 14(COMP METB) 08/27/2024 US ABD 04/28/2024 THYROID PANEL (T4/TSH/FREE T3) 4 US abdomen complete 01/24/2024 Insurance Providers Payer Name Payer Address Payer Phone Subscriber Number Group Number Insured Name Patient Relationship to Insured Coverage Start Date Coverage End Date [employer] ACCESS PPO PLUS LOCAL PLAN [address] [place] [address] [id number] Jose Alberto Saleem Self - patient [...] artery disease) I25.10 Surgical History Surgery Date(Month/Year) Hysteroscopy and D&C 06/18/2023 Sinus Surgery, Dr. Messer 12/2017 Gastric Bypass 01/29/2018 Cysto, Dr. Stoll 04/24/2018 & 018 Decompression of median nerv e and release and transverse carpal ligament- Right, Dr. Mckeon 07/19/2022 Cholecystectomy Coronary Artery Disease- S/P Bypass- 4 V essels- [facility] Peripheral Vascular Angioplasty Cardiac Cath, Left 2013 endoscope 03/06/24 Hospitalization History Reason Date(Month/Year) Pancreatitis 2024 Pancratitis 2023
--- OUTSIDE RECORDS SUMMARY | 2025-05-06 06:57 | XMS_ITS | Clinical Summary ---
Author Organization [facility] Address [address] [place] [address] Care Team Providers Care Leather Parts Matcher Name Role Phone Ziggy Dejesus MD Primary Care Provider [phone] Allergies Active Allergy Reactions Criticality Noted [...] 12.5 mg by mouth in the morning. /2 tab. Active Active Problems No known active [...] 09/13/2023 11:28 AM EST Plan of Treatment Upcoming Encounters Date Type Department Care Team (Late st Contact Info) Description 05/15/2025 11:30 AM EDT Office Visit [facility] [address] [place] [address] Arik Byrd PA [address] [place] [address] Health Maintenance Due Date Last Done Comments CT Colonography 1964 Colonoscopy 1964 Colorectal Cancer Screening 1964 FIT-DNA 1964 FIT 1964 FOBT 1964 Sigmoidoscopy 1964 Mammogram 08/15/2024 08/15/2023, 07/02, 10/28/2020, Additional history exists Pap Smear 02/07/2025 02/07/2022, 02/07/2022, 08/01 Influenza Vaccine (#1) 2025 , 06/05/2023, 06/16/2022, Additional history exists Cervical Cancer Screening 02/07/2027 HPV/Cotest 02/07/2027 02/07/2022, 02/07/2022, 08/01 Insurance BCBS Care Teams Leather Parts Matcher Relationship Specialty Start Date End Date Ziggy Dejesus MD [address] [place] [address] PCP - General Family Medicine 02/13/25
--- OUTSIDE RECORDS SUMMARY | 2025-05-06 06:57 | XMS_ITS | Encounter Summary ---
Author Organization [facility] Address [address] [place] [address] Phone Care Team Providers Care Property Management Intern Name Role Phone Ziggy Dejesus MD Primary Care Provider [phone] Ainta Hammonds RN Unavailable Unavailable Encounter Details Date Type Department Care Team (Late st Contact Info) Description 08/21/2024 Scanned Document [facility] [address] [place] [address] Scanning, Generic Provider Social History [...] Description 06/02/2025 11:10 AM EDT Office Visit [facility] [address] [facility] [address] [place] [phone] Celso Garibay DO [address] [facility] [address] [place], [place] [phone] 08/18/2025 11:20 AM EST Office Visit [facility] [address] [facility] [address] [place] [address] Celso Garibay, [address] [facility] [address] [place] [address] documented as of this encounter Visit Diagnoses Not on filedocumented in this encounter Care Teams Property Management Intern Relationship Specialty Start Date End Date Ziggy Dejesus MD [address] [facility] [place] [address] PCP - General 08/17/21 Anita Hammonds, health center managerHospital Receptionist 08/22/24 10/03/24 documented as of this encounter
--- OUTSIDE RECORDS SUMMARY | 2025-05-06 06:57 | XMS_ITS | Encounter Summary ---
Author Organization [facility] [employer] Address [facility] [id number] [address] [place] [address] Care Team Providers Care End Packer Name Role Phone Ziggy Dejesus MD Primary Care Provider [phone] Reason for Visit * Reason Comments Med Refill Encounter Details Date Type Department Care Team (Late st Contact Info) Description 01/10/2018 Refill [facility] [address] [place] [address] [place] [address] Antonia Banda, PA-C [address] [facility] [address] [place] [address] S/P nasal septoplasty Social History Tobacco Use [...] [facility] [address] [facility] [address] [place] [address] Antonia Banda, PASergC [address] [facility] [address] [place] [address] documented as of this encounter Visit Diagnoses Diagnosis S/P nasal septoplasty Other postprocedural status documented in this encounter Care Teams End Packer Relationship Specialty Start Date End Date Ziggy Dejesus MD PCP - General 02/22/17 documented as of this encounter
--- OUTSIDE RECORDS SUMMARY | 2025-05-06 06:57 | XMS_ITS | Encounter Summary ---
Author Organization [facility] Address [address] [place] [address] Phone Care Team Providers Care Oil Bay Technician Name Role Phone Ziggy Dejesus MD Primary Care Provider [phone] Anita Hammonds RN Unavailable Unavailable Encounter Details Date Type Department Care Team (Late st Contact Info) Description 10/09/2022 Orders Only [facility] [address] [place] [address] Conversion, Onbase Social History Tobacco Use Types [...] Description 06/02/2025 11:10 AM EDT Office Visit [address] [phone] Celso Garibay DO [address] [place] [address] [address], [address] [address] 08/18/2025 11:20 AM EST Office Visit [address] [phone] Celso Garibay DO [address] [place] [address] 2, [address] [address] Scheduled Orders Name Type Priority Associated Diagnoses Orde r Schedule OUTSIDE LAB SCAN Lab Ordered: 10/09/2022 documented as of this encounter Visit Diagnoses Not on filedocumented in this encounter Care Teams [place] Technician Relationship Specialty Start Date End Date Ziggy Dejesus MD [address] [place] [address] PCP - General 08/17/21 Anita Hammonds, [employer] group leaderMail Distribution Scheme Examiner 08/22/24 10/03/24 documented as of this encounter
--- OUTSIDE RECORDS SUMMARY | 2025-05-06 06:57 | XMS_ITS | Clinical Summary ---
Author Organization [facility] Address [address] [place] [address] Phone Care Team Providers Care Client Solutions Specialist Name Role Phone Ziggy Dejesus MD Primary Care Provider [phone] Allergies Active Allergy Reactions Criticality Noted Date [...] SL tabletIndications :Atherosclerosis of coronary artery of cahuilla heart without angina pectoris, unspecified vessel or [...] :Atherosclerosis of coronary artery bypass graft of cahuilla heart without angina pectoris,S/P PTCA (percutaneous transluminal [...] :Atherosclerosis of coronary artery bypass graft of cahuilla heart without angina pectoris TAKE 1 TABLET BY MOUTH DAILY 90 tablet 3 5 Active Active Problems Problem Noted Date Diagnosed Date Statin intolerance 09/05/2024 BMI 30.0-30.9,adult 09/05/2024 S/P PTCA (percutaneous transluminal coronary ang ioplasty) 09/05/2024 Panc[facility]itis [facility] 08/13/2024 Atherosclerosis of coronary artery of cahuilla heart without angina pectoris 08/09/2023 Essential hypertension [...] Description 06/02/2025 11:10 AM EDT Office Visit [address] [phone] Celso Garibay DO [address] [place] [address] [address], [address] [address] 08/18/2025 11:20 AM EST Office Visit [address] [phone] Celso Garibay DO [address] [place] [address] [address], [address] [address] Health Maintenance Due Date Last Done Comments CT Colonography 1964 FIT-DNA (Cologuard) 1964 FIT 1964 HIV Screening 1964 Lipid Panel 1964 Sigmoidoscopy 1964 MMR Vaccines (1 of 1 - Standard series) 1965 Diabetes Screening 1982 Hepatitis C Screening 1982 HPV/Cotest 1985 DTaP/Tdap/Td Vaccines (1 - Tdap) 1986 Pneumococcal Vaccine (2 of 2 - PCV) 05/09/2018 05/09/2017 Yearly Adult Physical 02/15/2024 02/13/2023 , 02/07/2022, 02/07/2022, Additional history exists COVID-19 Vaccine ( - season) 2024 08/01/2021, 01/29/2021, 01/08/2021 RSV High Risk: (Elderly (60+) or Population) (1 - Risk 60-74 years 1-dose series) 2024 Mammogram 08/15/2024 08/15/2023, 07/02, 10/28/2020 Cervical Cancer Screening 02/07/2025 Pap Smear 02/07/2025 02/07/2022, 02/07/2022 Influenza Vaccine (#1) 2025 , 06/05/2023, 06/16/2022, Additional history exists Colonoscopy 11/02/2032 11/02/2022, 11/01/2022 Colorectal Cancer Screening 11/02/2032 Zoster Vaccines Completed 08/21/2022, 06/16/2022 HIB Vaccines Aged Out No longer eligi [...] patient's age to complete this topic Insurance [facility] Care Teams Client Solutions Specialist Relationship Specialty Start Date End Date Ziggy Dejesus MD [address] [place] [facility] [place] [address] PCP - General 08/17/21
--- OUTSIDE RECORDS SUMMARY | 2025-05-06 06:57 | XMS_ITS | Clinical Summary ---
Author Organization [facility] Address [address] [place] [address] Care Team Providers Care Group Social Worker Name Role Phone Ziggy Dejesus MD Primary Care Provider [phone] Allergies Active Allergy Reactions Criticality Noted Date [...] 2014 Shingrix Vaccine (1 of 2) 2014 Influenza Vaccine (#1) 2025 RSV Vaccine (1 - 1-dose 75+ [...] EDT) Triglyceride 1338(H) 30 - 149 mg/dL [facility] Comment: Patient may be at risk for acute pancreatitis due to marked hypertriglyceridemia. Cholesterol, Total 296(H) 100 - 199 mg/dL [facility] HDL Cholesterol 25(L) >55 mg/dL [facility] VLDL Cholesterol Unable to calculate due to increased Triglycerides . See LDL-Chol, Direct. 6 - 40 mg/dL [facility] LDL Cholesterol, Calculated Unable to calculate due to increased Triglycerides . See LDL-Chol, Direct. 60 - 129 mg/dL [facility] Fasting Time 13 hrs [facility] TC:HDL Ratio 11.84(H) 1.00 - 5.00 [facility] LDL:HDL Ratio Unable to calculate 0.50 - 3.55 [facility] Non HDL Cholesterol 271(H) 90 - 159 mg/dL [facility] Blood specimen (specimen) BLOOD SPECIMEN / Unknown 03/22/2009 12:34 PM EDT us Lupe Park MD LABORATORY Final Resul t [facility] [address] [place] [address] * HGB A1C (03/22/2009 12:34 PM EDT) Hemoglobin A1C 5.6 4.0 - 6.0 % [facility] Blood specimen (specimen) BLOOD SPECIMEN / Unknown 03/22/2009 12:34 PM EDT us Lupe Park MD LABORATORY Final Resul t [facility] [address] [place] [address] from Last 3 Months or Most Recently Relevant to Health Maintenance Insurance [employer] Care Teams Group Social Worker Relationship Specialty Start Date End Date Ziggy Dejesus MD [address] [place] [address] PCP - General 03/15/06
--- OUTSIDE RECORDS SUMMARY | 2025-05-06 06:57 | XMS_ITS | Clinical Summary ---
Author Organization [facility] Address [address] [place] [address] Care Team Providers Care Technology Services Manager Name Role Phone Ziggy Dejesus MD Primary Care Provider [phone] Allergies Active Allergy Reactions Criticality Noted Date [...] Trimethoprim Hives 11/01/2022 Other reaction(s): Hives Medications citalopram (CeleXA) 20 mg tablet Take 20 mg by mouth in the morning. Active aspirin 81 mg EC tablet Take 81 mg by mouth 1 (one) time. 3 Active cevimeline (Evoxac) 30 mg capsule Take 30 mg by mouth three times daily. 8 Active RABEprazole (Aciphex) 20 mg EC tablet Take 20 mg by mouth in the morning and at bedtime. 8 Active tamsulosin (Flomax) 0.4 mg 24 hr capsule Take 0.4 mg by mouth in the morning. 8 Active amLODIPine (Norvasc) 2.5 mg tablet Take 2.5 mg by mouth in the morning. 4 025 Active clopidogrel (Plavix) 75 mg tablet Take 75 mg by mouth in the morning. 4 025 Active estradiol (Estrace) 0.01 % (0.1 mg/gram) vaginal cream Insert into the vagina in the morning. 4 Active mirabegron 50 mg tablet extended release 24 hr Take 50 mg by mouth. 4 Active traMADol (Ultram) 50 mg tablet 5 Active Creon 24,000-76,000 -120,000 unit capsule 5 Active casanthranol/docus ate sodium (STOOL SOFTENER PLUS LAXATIVE ORAL) Take by mouth. DIGESTSYNC is what she is taking OTC Active fluticasone (Flonase) 50 mcg/actuation nasal spray INSTILL 1 SPRAY IN EACH NOSTIRL TWICE A DAY. for 90 Active HYDROcodone-acetam inophen (Herndon) 5-325 mg tablet 5 Active hyoscyamine (Anaspaz,Levsin) 0.125 mg tablet 2 tablet as needed Orally every 4 hrs PRN abd pain 4 Active ondansetron ODT (Zofran-ODT) 4 mg disintegrating tablet 5 Active Active Problems Problem Noted Date Diagnosed Date BMI 30.0-30.9,adult 09/05/2024 S/P PTCA (percutaneous transluminal coronary ang ioplasty) 09/05/2024 Statin intolerance 09/05/2024 Angina pectoris 02/26/2024 Overview (02/26/2024): non for 4 yrs Cellulitis of right foot due to methicillin-resistant Staphylococcus aureus 02/26/2024 Overview (02/26/2024): nare after surgery Hypercholesterolemia 02/26/2024 Peripheral edema 02/26/2024 Xerostomia 02/26/2024 Atherosclerosis of coronary artery of mo[place] heart without angina pectoris 08/09/2023 Essential hypertension, [...] Encounters Date Type Department Care Team Description 03/25/2025 Telephone [facility] Gastroenterology [address] [place] [address] [place] [address] Anika Sharma MD 03/20/2025 Telephone [facility] Endoscopy [address] [place] [address] Gisela Arellano, RN 02/18/2025 Telephone [facility]enter[facility] [address] [place] [address] [place] [address] Anika Sharma MD 02/18/2025 Telephone [facility]enter[facility] [address] [place] [address] [place] [address] Anika Sharma MD 02/11/2025 Telephone [facility] [address] [place] [phone] Gisela Arellano, RN from Last 3 Months Immunizations Immunization Administration Dates Next Due Influenza, High Dose Seasona l, Preservative Free 2022 Influenza, Unspecified 06/30/2021 Influenza, injectable, MDCK, preservative free, quadrivalent 06/03/2021,07/26/2017 Influenza, injectable, quadr ivalent, preservative free 06/05/2023,06/16/2022,2020,07/23 Influenza, seasonal, injectable 06/15/2014 Influenza, seasonal, injecta ble, preservative free, 6 moonths & older 06/05/2024,07/03/2015 Novel dkupgiplq-E1H0-90, preservative-free 07/29/2009 Pfizer SARS-CoV-2 Vaccination 01/08/2021 Pneumococcal Polysaccharide PPV23 05/09/2017 Zoster, Recombinant 08/21/2022,06/16/2022 Family History Medical History Relation Name Comments Hyperlipidemia Brother 1 Cayey Heart attack Brother 2 Ray Hyperlipidemia Father Munoz Hyperlipidemia Mother Katharyn Relation Name Status Comments Brother 1 Cayey Brother 2 Ray Father Munoz Mother Katharyn [...] Recorded Patient Health Questionnaire-2 Score 1 02/27/2024 Comments Unknown Sex and Gender Information Value Date Recorded Sex Assigned at Female 02/27/2024 10:42 AM EDT Legal Sex Female 9:56 AM EST Gender Identity Female 02/27/2024 10:42 AM EDT [...] 12/12/2024 9:47 AM EDT Plan of Treatment Upcoming Encounters Date Type Department Care Team (Late st Contact Info) Description 05/08/2025 10:30 AM EDT Follow-Up [facility] Gastroenterology [address] [place] [phone] Chauncey Cooper MD [address] [facility] [address] [facility] [place] [place] [address] Health Maintenance Due Date Last Done Comments [...] 08/01/2021, 01/29/2021, 01/08/2021 Pap Smear 02/07/2025 02/07/2022 Influenza Vaccine (#1) 2025 , 06/05/2023, 06/16/2022, Additional history exists Mammogram 08/15/2025 08/15/2023, 07/24/2022 Cervical Cancer Screening 02/07/2027 HPV/Cotest 02/07/2027 02/07/2022 Zoster Vaccines Completed 08/21/2022, 06/16/2022 HIB Vaccines [...] Date/Time Associated Diagnosis Comments HEMOGLOBIN A1C Routine 02/27/2024 12:18 PM EDT Elevated LFTs from Last 3 Months or Most Recently Relevant to Health Maintenance Results * Hemoglobin A1c (02/27/2024 12:18 PM EDT) Hemoglobin A1C 5.1 4.0 - 6.0 % 02/27/2024 2:02 PM EDT [facility]) Estimated Average Glucose 100 mg/dL 02/27/2024 2:02 PM EDT [facility]) Blood Venous blood specimen / Unknown Venipuncture / Unknown 02/27/2024 12:18 PM EDT 02/27/2024 12:18 PM EDT us Danielle Magallon MD LAB BLOOD ORDERABLES Final Res ult [facility] ([facility]) [address] [place] [address] from Last 3 Months or Most Recently Relevant to Health Maintenance Insurance [employer] [facility] Care Teams Technology Services Manager Relationship Specialty Start Date End Date Ziggy Dejesus MD [address] [facility] [place] [address] PCP - General 02/18/24
[2025-05-06 07:39] LABS: Hematocrit 45.9 % (36.0-48.0); Hemoglobin 15.1 g/dL (12.0-16.0); Immature Granulocytes Abs Auto 0.01 10^3/uL (0.00-0.03); Immature Granulocytes Pct Auto 0.2 % (0.0-0.5); Lymphocytes Absolute Auto 1.7 10^3/uL (1.2-3.8); Mean Corpuscular HGB Conc 32.9 g/dL (29.9-35.2); Mean Corpuscular Hemoglobin 29.5 pg (26.7-34.0); Mean Corpuscular Volume 89.8 fL (81.0-99.0); Platelet Count 218 10^3/uL (150-450); Red Blood Count 5.11 10^6/uL (4.20-5.40); White Blood Count 5.6 10^3/uL (4.0-11.0)
[2025-05-06 09:32] LABS: Iron 92.0 ug/dL (50.0-170.0); Percent Iron Saturation 24.9 %; Total Iron Binding Capacity 370.0 ug/dL (250.0-450.0)
[2025-05-06 09:57] LABS: Ferritin 40.0 ng/mL (8.0-252.0); Folate 48.70 ng/mL (8.60-58.90)
[2025-05-06 10:33] LABS: Alanine Aminotransferase 38 U/L (14-59); Albumin Globulin Ratio 1.0; Albumin Level 3.7 g/dL (3.4-5.0); Alkaline Phosphatase 108 U/L (46-116); Anion Gap 7.7; Aspartate Amino Transferase 24 U/L (15-37); Blood Urea Nitrogen 30.0 mg/dL (7.0-18.0); Calcium 9.8 mg/dL (8.5-10.1); Carbon Dioxide 34.4 mmol/L (21.0-32.0); Chloride 102 mmol/L (98-107); Estimated GFR (African America >60 (>=60 mL/min/1.73m^2); Estimated GFR (Non-African Ame >60 (>=60 mL/min/1.73m^2); Globulin 3.6 g/dL; Glucose 89 mg/dL (74-106); Potassium 4.1 mmol/L (3.5-5.1); Sodium 140 mmol/L (136-145); Total Protein 7.3 g/dL (6.4-8.2)
[2025-05-06 11:57] LABS: Magnesium 2.2 mg/dL (1.8-2.4)
[2025-05-07 04:07] LABS: Vitamin B12 1970 pg/mL (232-1245)
== END 2025-05-06 06:54 | disposition home or self-care (01) ==
LOC: LAB 06:55
PROVIDERS: PCP Family Medicine; Visit Provider Nurse Practitioner Family
DX: K85.90 Acute pancreatitis without necrosis or infection, unspecified (principal); Z98.84 Bariatric surgery status; K90.9 Intestinal malabsorption, unspecified; I10 Essential (primary) hypertension; R60.9 Edema, unspecified; K21.9 Gastro-esophageal reflux disease without esophagitis
CPT/HCPCS: 36415; 80053; 82150; 82306; 82607; 82728; 82746; 83540; 83550; 83690; 83735; 84100; 84425; 85025

== ENCOUNTER 2025-05-06 06:58 | Outpatient (OUT) | payer BC, SELFPAY ==
--- OUTSIDE RECORDS SUMMARY | 2024-09-10 09:15 | XMS_ITS | Continuity of Care Document ---
Author Organization [employer] [facility] Address [address] [place] [address] Phone Care Team Providers Care Online Marketing Manager Name Role Phone Johanna Raygoza CNP Unavailable [...] Providers Copied on Encounter OFFICE/OUTPATI ENT VISIT, [facility] [employer] [facility], [address] [facility], [place], [place], [address], [place] tel:[phone] [facility] No Information Idalmis Spencer. [address] [facility] [address], [place], [address], [place]. tel:[phone] Referring Provider: Johanna Raygoza, [address] [facility] [address], [place], [address]. tel:[phone] OFFICE/OUTPATI ENT VISIT, [facility], [address], [place], [place], [address], [place] tel:[phone] [place] [facility] No Information Idalmis Spencer. [address], [place], [place], [address], [place]. tel:[phone] Referring Provider: Johanna Raygoza, [facility] [address], [place], [address]. tel:[phone] OFFICE/OUTPATI ENT VISIT, [facility], [address] [place] [address] [address], [place], [place], [address], [place] tel:[phone] [facility] No Information Idalmis Spencer. [address] [facility] [address], [place], [place], [address], [place]. tel:[phone] Referring Provider: Johanna Raygoza, [facility] [address] [facility] [address], [place], [address]. tel:[phone] OFFICE/OUTPATI ENT VISIT, [facility], [address] [facility] [address], [place], [place], [address], [place] tel:[phone] [facility] No Information Idalmis Spencer. [address] [facility] [address], [place], [place], [address], [place]. tel:[phone] Referring Provider: Johanna Raygoza, [address] [facility] [address], [place], [address]. tel:[phone] OFFICE/OUTPATI ENT VISIT, [facility], [address] [facility] [address], [place], [place], [address], [place] tel:[phone] [facility] [place] [facility] No Information Idalmis Spencer. [address], [place], [place], [address], [place]. tel:[phone] Referring Provider: Johanna Raygoza, [address], [place], [address]. tel:[phone] OFFICE/OUTPATI ENT VISIT, [facility] [employer] [facility], [address] [place] [address] [address], [place], [place], [address], [place] tel:[phone] [facility] No Information Idalmis Spencer. [address] [place] [address] [address], [place], [place], [address], [place]. tel:[phone] Referring Provider: Johanna Raygoza, [address] [place] [address] [address], [place], [address]. tel:[phone] OFFICE/OUTPATI ENT VISIT, [facility] [employer] [facility], [address] [place] [address] [address], [place], [place], [address], [place] tel:[phone] [facility] No Information Idalmis Spencer. [address] [place] [address] [address], [place], [place], [address], [place]. tel:[phone] Referring Provider: Johanna Raygoza, [address] [place] [address] [address], [place], [address]. tel:[phone] [employer] [facility], [address] [place] [address] [address], [place], [place], [address], [place] tel:[phone] [facility] No Information Idalmis Spencer. [address] [place] [address] [address], [place], [place], [address], [place]. tel:[phone] Referring Provider: Johanna Raygoza, [address] [place] [address] [address], [place], [address]. tel:[phone] [facility], [address] [place] [address] [address], [place], [place], [address], [place] tel:[phone] [facility] No Information Idalmis Spencer. [address] [place] [address] [address], [place], [place], [address], [place]. tel:[phone] Referring Provider: Johanna Raygoza, [address] [place] [address] [address], [place], [address]. tel:[phone] [place] [employer] [facility], [address] [place] [address] [address], [place], [place], [address], [place] tel:[phone] [facility] IP No Information Cady Mccurdy. [address] [place] [address] [address], [place], [place], [address], [place]. tel:[phone] Referring Provider: Kaz De Los Santos, [address] [place] [address] [address], [place], [address]. tel:[phone] [place] [employer], [address] [place] [address] [address], [place], [place], [address], [place] tel:[phone] [facility] IP No Information Idalmis Spencer. [address] [place] [address] [address], [place], [place], [address], [place]. tel:[phone] Referring Provider: Johanna Raygoza, [address] [place] [address] [address], [place], [address]. tel:[phone] OFFICE/OUTPATI ENT VISIT, [facility] [employer] [facility], [address] [place] [address] [address], [place], [place], [address], [place] tel:[phone] [facility] No Information Cady Mccurdy. [address] [place] [address] [address], [place], [place], [address], [place]. tel:[phone] Referring Provider: Kaz De Los Santos, [address] [place] [address] [address], [place], [address]. tel:[phone] OFFICE/OUTPATI ENT VISIT, [facility] [employer] [facility], [address] [place] [address] [address], [place], [place], [address], [place] tel:[phone] [facility] No Information Cady Mccurdy. [address] [place] [address] [address], [place], [place], [address], [place]. tel:[phone] Referring Provider: Kaz De Los Santos, [address] [place] [address] [address], [place], [address]. tel:[phone] OFFICE CONSULTATION [facility], [address], [place], [place], [address], [place] tel:[phone] [facility] No Information Cady Mccurdy. [address] [facility] [address], [place], [place], [address], [place]. tel:[phone] Referring Provider: Kaz De Los Santos, [address] [facility] [address], [place], [address]. tel:[phone] Family History Family Member Type Diagnosis Age At Onset No Information Payers Payer name Insurance type Covered constitution party ID Raad gomez(eva Jones [id number] Social History Type Description Quantity Date Captured [...]
--- OUTSIDE RECORDS SUMMARY | 2025-05-06 07:04 | XMS_ITS | Encounter Summary ---
Author Organization [employer] Address [id number] [address] [place] [address] Care Team Providers Care Perinatal Educator Name Role Phone Ziggy Dejesus MD Primary Care Provider [phone] Reason for Visit * Reason Comments Med Refill Encounter Details Date Type Department Care Team (Late st Contact Info) Description 01/31/2024 Refill [facility] [address] [place] [phone] Antonia Banda, PA-C [phone] [facility] [address] [place] [id number] Xerostomia Social History Tobacco Use Types Packs/Day [...] [facility] [address] [place] [phone] Antonia Banda, PA-C [address] [facility] [address] [place] [address] documented as of this encounter Visit Diagnoses Diagnosis Xerostomia Disturbance of salivary secretion documented in this encounter Additional Health Concerns Assessment Noted Time PHQ-9 Depression Total Score: 0 10/13/19 21 3:43 PM EST documented as of this encounter Care Teams Perinatal Educator Relationship Specialty Start Date End Date Ziggy Dejesus MD PCP - General 02/22/17 documented as of this encounter
[2025-05-06 09:30] LABS: Amylase 117 U/L (25-115); Lipase 50.0 U/L (16.0-77.0)
== END 2025-05-06 06:59 | disposition home or self-care (01) ==
LOC: LAB 06:59
PROVIDERS: PCP Family Medicine; Visit Provider Family Medicine
DX: K85.90 Acute pancreatitis without necrosis or infection, unspecified (principal)
CPT/HCPCS: 36415; 82150; 83690

== ENCOUNTER 2025-07-01 16:35 | Outpatient (OUT) | payer BC, SELFPAY ==
--- OUTSIDE RECORDS SUMMARY | 2024-09-10 09:15 | XMS_ITS | Continuity of Care Document ---
Author Organization [employer] [facility] Address [address] [facility] [place] [address] Phone Care Team Providers Care Rn Peritoneal Dialysis Name Role Phone Johanna Raygoza CNP Unavailable [...] ENT VISIT, [facility] [employer], [address] [facility] [address], [place], [place], [address], [place] tel:[phone] [facility] No Information Idalmis Spencer. [address] [facility] [address], [place], [address], [place]. tel:[phone] Referring Provider: Johanna Raygoza, [address] [facility] [address], [place], [address]. tel:[phone] OFFICE/OUTPATI ENT VISIT, [facility], [address], [place], [place], [address], [place] tel:[phone] [facility] No Information Idalmis Spencer. [address], [place], [place], [address], [place]. tel:[phone] Referring Provider: Johanna Raygoza, [facility] [address], [place], [address]. tel:[phone] OFFICE/OUTPATI ENT VISIT, [facility], [address] [place] [address] [address], [place], [address], [place] tel:[phone] [facility] Weight Loss Surgery No Information Idalmis Spencer. [address] [facility] [address], [place], [place], [address], [place]. tel:[phone] Referring Provider: Johanna Raygoza, [facility] [address] [facility] [address], [place], [address]. tel:[phone] OFFICE/OUTPATI ENT VISIT, [facility], [address] [facility] [address], [place], [place], [address], [place] tel:[phone] [facility] Surgery No Information Idalmis Spencer. [address] [facility] [address], [place], [place], [address], [place]. tel:[phone] Referring Provider: Johanna Raygoza, [address] [facility] [address], [place], [address]. tel:[phone] OFFICE/OUTPATI ENT VISIT, [facility], [address] [facility] [address], [place], [place], [address], [place] tel:[phone] [facility] No Information Idalmis Spencer. [address], [place], [address], [place]. tel:[phone] Referring Provider: Johanna Raygoza, [address], [place], [address]. tel:[phone] OFFICE/OUTPATI ENT VISIT, [facility] [facility], [address] [place] [address] [address], [place], [place], [address], [place] tel:[phone] [facility] No Information Idalmis Spencer. [address] [place] [address] [address], [place], [place], [address], [place]. tel:[phone] Referring Provider: Johanna Raygoza, [address] [place] [address] [address], [place], [address]. tel:[phone] OFFICE/OUTPATI ENT VISIT, [facility], [address] [place] [address] [address], [place], [place], [address], [place] tel:[phone] [facility] No Information Idalmis Spencer. [address] [place] [address] [address], [place], [place], [address], [place]. tel:[phone] Referring Provider: Johanna Raygoza, [address] [place] [address] [address], [place], [address]. tel:[phone] [facility], [address] [place] [address] [address], [place], [place], [address], [place] tel:[phone] [facility] No Information Idalmis Spencer. [address] [place] [address] [address], [place], [place], [address], [place]. tel:[phone] Referring Provider: Johanna Raygoza, [address] [place] [address] [address], [place], [address]. tel:[phone], [address] [place] [address] [address], [place], [address], [place] tel:[phone] [facility] No Information Idalmis Spencer. [address] [place] [address] [address], [place], [place], [address], [place]. tel:[phone] Referring Provider: Johanna Raygoza, [address] [place] [address] [address], [place], [address]. tel:[phone] [place] [facility], [address] [place] [address] [address], [place], [address], [place] tel:[phone] [facility] IP No Information Cady Mccurdy. [address] [place] [address] [address], [place], [address], [place]. tel:[phone] Referring Provider: Kaz De Los Santos, [address] [place] [address] [address], [place], [address]. tel:[phone] [place] [facility], [address] [place] [address] [address], [place], [address], [place] tel:[phone] [facility] IP No Information Idalmis Spencer. [address] [place] [address] [address], [place], [address], [place]. tel:[phone] Referring Provider: Johanna Raygoza, [address] [place] [address] [address], [place], [address]. tel:[phone] OFFICE/OUTPATI ENT VISIT, [facility], [address] [place] [address] [address], [place], [address], [place] tel:[phone] [facility] No Information Cady Mccurdy. [address] [place] [address] [address], [place], [address], [place]. tel:[phone] Referring Provider: Kaz De Los Santos, [address] [place] [address] [address], [place], [address]. tel:[phone] OFFICE/OUTPATI ENT VISIT, [facility], [address] [place] [address] [address], [place], [address], [place] tel:[phone] [facility] No Information Cady Mccurdy. [address] [place] [address] [address], [place], [address], [place]. tel:[phone] Referring Provider: Kaz De Los Santos, [address] [place] [address] [address], [place], [address]. tel:[phone] OFFICE CONSULTATION [facility], [address], [place], [place], [address], [place] tel:[phone] [facility] No Information Cady Mccurdy. [address] [facility] [address], [place], [place], [address], [place]. tel:[phone] Referring Provider: Kaz De Los Santos, [address] [facility] [address], [place], [address]. tel:[phone] Family History Family Member Type Diagnosis Age At Onset No Information Payers Payer name Insurance type Covered democrat ID Raad gomez(eva Jones [id number] Social History Type Description Quantity Date Captured [...]
--- OUTSIDE RECORDS SUMMARY | 2025-06-23 10:15 | XMS_ITS | Encounter Summary ---
Author Organization [facility] Address [address] [place] [address] Care Team Providers Care Clay Mixer Name Role Phone Ziggy Dejesus MD Primary Care Provider [phone] Reason for Referral * Rehabilitation - Outpatient (Routine) - Authorized Specialty Diagnoses / Procedures Referred By Contfélix flynn Referred To Contact Physical Therapy Diagnoses Tendonitis of wrist, right Procedures [place] OFFICE/OUTPATIENT [facility] 60 MINUTES Jr. Torsten Sinha DO [address] [facility] [address] [place] [address] Phone: tel: fax: Kayode Francois, PT [address] [place] [address] Phone: tel: fax: Referral ID Status Reason Start Date Expiration Date Visits Requested Visits Authorized [id number] Authorized Consult and Treat 06/23/2025 12/20/2025 25 25 Reason for Visit * Reason Comments Pain Encounter Details Date Type Department Care Team (Late st Contact Info) Description 06/23/2025 10:15 AM EDT Office Visit [facility] [address] [place] [address] Jr. Torsten Sinha DO [address] [facility] [address] [place] [address] Tendonitis of wrist, right; Right wrist pain Social History Tobacco Use Types Packs/Day Years Used Date Smoking Tobacco: Never Smokeless Tobacco: Never Alcohol Use Standard Drinks/Week Comments Not Currently 0 (1 standard drink = 0.6 oz pur e alcohol) Comments Unknown Sex and Gender Information Value Date Recorded Sex Assigned at Female 09/12/2023 3:27 PM EST Legal Sex Female 7:08 PM EDT Gender Identity Female 09/12/2023 3:27 PM EST Sexual Orientation Not on file documented as of this encounter Progress Notes * Jr. Torsten Sinha, DO - 06/23/2025 11:00 AM EDT Images from the original note were not included. HISTORY OF PRESENT ILLNESS: EST PT Tiarra Carney is an 60 y.o. @ female. EST PT RECHECK RT WRIST PAIN - HERE FOR MRI RT WRIST RESULTS 06/16/25 EPIC- S/P SPLINT XRAY RT WRIST EPIC 05/15/25 MRI RT WRIST 06/16/25 EPIC EMG RT UE DR DECKER 05/27/25 HX RT CTR X2 PER DR AMBRIZ ~3YRS AGO PREVIOUS RT WRIST FX 09/27/24 PT FEELS LIKE SHE HAS A BAND GOING AROUND WRIST- PAIN GENERALLY RADIAL ASPECT- TENDER TO TOUCH- OCCASIONAL SWELLING- +THROBBING-+TYLENOL RT HAND DOMINANT PT IS ON PLAVIX; CARDIAC STENT ALLERGIES: Allergies Allergen Reactions Baclofen Other and [...] Medication Instructions aspirin 81 mg, Oral, Daily calcium 200 MG tablet Oral cevimeline (EVOXAC) 30 mg, Oral, 3 times daily citalopram (CELEXA) 20 mg, Oral clopidogrel (Plavix) 75 MG tablet Oral, Daily hydroCHLOROthiazide (HYDRODIURIL) 12.5 mg, Oral, Daily, 1/2 [...] wrist palpation is normal. Wrist tenderness to palpation: first dorsal compartment and radial snuffbox Wrist tenderness to palpation comment: DENIES PAIN [...] and oriented x3 Skin: intact Lymphadenopathy: none Vitals: There is no height or weight on file to calculate BMI. Tobacco Use: Low Risk (06/23/2025) Patient History Smoking Tobacco Use: Never Smokeless Tobacco Use: Never Passive Exposure: Not on file Alcohol Use: Not on file IMAGING: Procedures Orders Placed This Encounter Procedures Ambulatory referral to Physical Therapy [facility] 3 TIMES PER WEEK FOR 6 WEEKS FOR RT WRIST ARTHRITIS/TENDONITIS Standing Status: Future Expected Date: 06/23/2025 Expiration Date: 12/21/2025 Referral Priority: Routine Referral Type: Rehabilitation - Outpatient Referral Reason: Consult and Treat Referred to Provider: Kayode Francois PT Requested Specialty: Physical Therapy Number of Visits Requested: 1 ASSESSMENT: ICD-10-CM 1. Tendonitis of wrist, right M77.8 Ambulatory referral to Physical Therapy 2. 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 We discussed her symptoms, visible exam, and MRI at length. We have recommended physical therapy 3 times a week for 6 weeks and we'll see her back in 6 weeks. If her symptoms persist or worsen we may consider Medrol Dosepak and/or hand surgeon consult. Questions answered in laymen terms at the bedside. The diagnosis, home exercise plan and any ongoing restrictions/ recommendations reviewed. If unable to be reached in office, I recommend evaluation at nearest Emergency Room if any symptoms worsened or new symptoms develop for requiring urgent evaluation. documented in this encounter Plan of Treatment Upcoming Encounters Date Type Department Care Team (Late st Contact Info) Description 07/14/2025 5:00 PM EDT Evaluation [facility] [address] [place] [phone] Kayode Francois, PT [address] [place] [address] 08/04/2025 10:45 AM EST Office Visit [facility] [address] [facility] [address] [place] [phone] Jr. Torsten Sinha DO [address] [facility] [address] [place] [address] Scheduled Referrals Name Type Priority Associated Diagnoses Order Schedule Ambulatory referral to Physical Therapy Outpatient Referral Routine Tendonitis of wrist, right Expected: 06/23/2025 (Approximate), Expires: 12/21/2025 documented as of this encounter Visit Diagnoses Diagnosis Tendonitis of wrist, right Right wrist pain Pain in joint, forearm documented in this encounter Care Teams Clay Mixer Relationship Specialty Start Date End Date Ziggy Dejesus MD [address] [place] [address] PCP - General Family Medicine 02/13/25 documented as of this encounter
--- OUTSIDE RECORDS SUMMARY | 2025-06-23 10:15 | XMS_ITS ---
Author Name Auto Generated Organization OHIP Support Name Relationship Address Phone JORGE TERRAZAS Next of Kin Unknown [phone] HORACE TERRAZAS Next of Kin Unknown [phone] NINI CRYSTAL Next of Kin Unknown [phone] NINI HORACE Next of Kin Unknown [phone] NINI CRYSTAL Next of Kin Unknown [phone] NINI HORACE Next of Kin Unknown [phone] NINI, CRYSTAL Next of Kin Unknown [phone] NINI HORACE Next of Kin Unknown [phone] NINI JORGE Next of Kin Unknown [phone] NINI CRYSTAL Next of Kin Unknown [phone] NINI, HORACE Next of Kin Unknown [phone] NINI HORACE Next of Kin Unknown [phone] NINI JORGE Next of Kin Unknown Unavailable NINI, HORACE Next of Kin Unknown [phone] NINI, HORACE Next of Kin Unknown [phone] NINI HORACE Next of Kin Unknown [phone] NINI JORGE Next of Kin Unknown [phone] NINI CRYSTAL Next of Kin Unknown [phone] MINA YADAV Next of Kin Unknown Unavailable NINI CRYSTAL Next of Kin Unknown [phone] [place] [address] +[phone] NINI CRYSTAL Next of Kin Unknown [phone] HORACE TERRAZAS Next of Kin Unknown [phone] NONE Next of Kin Unknown Unavailable Jorge Terrazas Next of Kin Unknown [phone] JORGE TERRAZAS Next of Kin Unknown [phone] HORACE TERRAZAS Next of Kin Unknown [phone] NONE Next of Kin Unknown Unavailable NERI SALEEM Next of Kin Unknown + Care Team Providers Care Director Emergency Name Role Phone CELSO MENDOZA Attending Unavailable CELSO MENDOZA Referring Unavailable ZIGGY GRIGSBY Primary Care Unavailable CELSO MENDOZA Attending Unavailable ZIGGY GRIGSBY MURIEL Primary Care Unavailable RAJI WHITFIELD Attending Unavailable RAJI WHITFIELD Referring Unavailable RAJI WHITFIELD Attending Unavailable RAJI WHITFIELD Referring Unavailable RAE DECKER Attending Unavailable RAJI WHITFIELD Referring Unavailable JR. CHAPIN, BRIDGETT Vann Attending Unavailmonique SAMSON JR., BRIDGETT Vann Referring Unavaila monica SAMSON JR., BRIDGETT Vann Attending Unavaila RADHA De Leno Referring Unavailable HOY ZIGGY M Primary Care Unavailable NACHAUNCEY BRYAN Referring Unavailable HOY, ZIGGY M Primary Care Unavailable Hoy, Ziggy Primary Care Unavailable TIFFANI MARTINO Attending Unavailable Hoy, Ziggy M Primary Care Unavailable Kaiser Quijano Attending Unavailable Una Corrales Consulting Unavailable Bella Stein Referring Unavailable Donis Arroyo Admitting Unavailable Blas Mendoza Consulting Unavailable Arvind Sanchez Consulting Unavailable Celso Ann Consulting Unavail able Nyasia Marquez Consulting Unavailable Samuel Olson Consulting Unavailab Cindy Urias Consulting Unavailable Cierra Artis Consulting Unavailable Durga Guerra Consulting Unavailab Toya Marsh Consulting Unavailable Jackie Daugherty Consulting Unavailable CHAUNCEY KIMBLE Attending Unavailable CHAUNCEY KIMBLE Referring Unavailable CHAUNCEY KIMBLE Referring Unavailable NACHAUNCEY BRYAN Attending Unavailable CHAUNCEY KIMBLE Attending Unavailable PROBLEMS DATE TYPE CONDITION / CODE ATTENDING STATUS [facility] 05/08/2025 Admitting Diagnosis Follow-up / [id number]() CHAUNCEY KIMBLE Active [facility] 01/30/2025 Admitting Diagnosis Idiopathic acute pancreatitis without necrosis or infection / K85.00(ICD-10) [facility] 01/17/2025 Unknown Idiopathic acute pancreatitis without necrosis or infection / K85.00(ICD-10) [facility] 12/12/2024 Admitting Diagnosis Acute pancreatitis without necrosis or infection, unspecified / K85.90(ICD-10) [facility] 12/12/2024 Admitting Diagnosis Encounter for follow-up examination after completed treatment for malignant neoplasm / Z08(ICD-10) [facility] 12/12/2024 Admitting Diagnosis Personal history of other malignant neoplasm of large intestine / Z85.038(ICD-10) [facility] 10/11/2024 Unknown Pain in left arm / M79.602(ICD-10) [facility] 10/11/2024 Unknown Pain in right ar m / M79.601(ICD-10) [facility] 09/05/2024 Admitting Diagnosis Coronary angioplasty status / Z98.61(ICD-10) [facility] 09/05/2024 Admitting Diagnosis Essential (primary) hypertension / I10(ICD-10) [facility] 09/05/2024 Admitting Diagnosis Body mass index (BMI) 30.0-30.9, adult / Z68.30(ICD-10) [facility] 09/05/2024 Admitting Diagnosis Other specified health status / Z78.9(ICD-10) [facility] 08/09/2023 Admitting Diagnosis Atherosclerosis of coronary artery bypass graft(s) without angina pectoris / I25.810(ICD-10) [facility] 08/09/2023 Admitting Diagnosis Ischemic cardiomyopathy / I25.5(ICD-10) [facility] 08/09/2023 Admitting Diagnosis Mixed hyperlipidemia / E78.2(ICD-10) [facility] 08/20/2024 Unknown Other chest pain / R07.89(ICD-10) [facility] 08/20/2024 Unknown Atherosclerotic heart disease of [place] coronary artery without angina pectoris / I25.10(ICD-10) [facility] 08/20/2024 Unknown Bariatric surger y status / Z98.84(ICD-10) [facility] 08/20/2024 Unknown Presence of aortocoronary bypass graft / Z95.1(ICD-10) [facility] 08/13/2024 Admitting Diagnosis Acute pancreatitis without necrosis or infection, unspecified ([facility]) / K85.90(ICD-10) [facility] 08/09/2023 Admitting Diagnosis Atherosclerotic heart disease of [place] coronary artery without angina pectoris / I25.10(ICD-10) [facility] 08/09/2023 Admitting Diagnosis Presence of aortocoronary bypass graft / Z95.1(ICD-10) [facility] 08/09/2023 Admitting Diagnosis Hyperlipidemia, unspecified / E78.5(ICD-10) [facility] PROCEDURES No Procedure Records Found RESULTS MR WRIST RIGHT WO IV CONTRAST Observed: 06/16/2025 9:13 AM Status: F Source: [facility] EPIC Order Comment: MRI RT wrist w/o at [facility]. Orbits if needed. Please contact patient to schedule EXAM/TECHNIQUE: MR WRIST RIG HT WO IV CONTRAST HISTORY: Lifting injury. Numbness in fingers. History of prior carpal tunnel surgery. COMPARISON: Radiographs 05/15/2025. RESULT: Limitations from motion. BONE MARROW: Small amount of bone marrow edema involving the distal radius at the distal radioulnar joint, likely degenerative in etiology. Additional areas of subchondral edema within the wrist, likely degenerative. No evidence for recent fracture. Negative ulnar variance. LIGAMENTS: The scapholunate ligament and lunotriquetral ligament appear to be grossly intact. TRIANGULAR FIBROCARTILAGE COMPLEX (TFCC): Grossly intact within limits of motion. CARTILAGE: Degenerative changes throughout the wrist especially of the distal radioulnar joint and thumb CMC joint, grossly similar to prior radiographs. TENDONS: The flexor and extensor tendons are grossly intact. NERVES: The visualized portions of the median and ulnar nerves appear to be within normal limits. Changes from prior carpal tunnel surgery. JOINT FLUID AND SYNOVIUM: There is a physiological quantity of joint fluid. No evidence of synovitis. OTHER: No other significant abnormality. IMPRESSION: No acute osseous findings. Degenerative changes as discussed. ELECTRONICALLY SIGNED BY: Wilder Arango MD 36 Observed: 05/19/2025 12:23 PM Status: COMPLETED Source: [facility] Called patient today to let her know that a referral has been sent to Dr. Juan Mantilla with [facility] for her sphincter of oddi dysfunction. Also, there has been ongoing calls regarding her Creon dosage. Spoke with Dr. Braun and able to conference patient in so that he can speak with her and clarify what dosage of Creon she should be on and that 2 prescriptions will now be sent to her pharmacy she will take 36,000 one tablet before meals and then 12,000-24,000 with a snack she is able to adjust the dosage depending on her snack, verifies understanding. ORDERS ONLY Observed: 05/19/2025 12:00 AM Status: COMPLETED Source: [facility] [id number] Jose Alberto Saleem 06/1965 F Date Provider Department Center 05/19/2025 [id number] PAT MP [facility] Family History Problem Relation Age of Onset Hyperlipidemia Mother Hyperlipidemia Father Hyperlipidemia Brother Heart attack Brother Family Status - Relation Status Age at Mother Father BrotherBrother TELEPHONE Observed: 05/19/2025 12:00 AM Status: COMPLETED Source: [facility] [id number] Jose Alberto Saleem 06/1965 Date Provider Department Center 05/19/2025 [facility]A [facility] Family History Problem Relation Age of Onset Hyperlipidemia Mother Hyperlipidemia Father Hyperlipidemia Brother Heart attack Brother Family Status - Relation Status Age at Mother Father BrotherBrother 36 Observed: 05/14/2025 2:14 PM Status: COMPLETED Source: [facility] Manager [employer] spoke with Betsy the pharmacy laboratory technician and clarify some information and that is what was needed so hopefully soon be able to get soon. 36 Observed: 05/14/2025 12:30 PM Status: COMPLETED Source: [facility] Called patient to follow up with the referral to [facility], that I will need to verify with Dr. Kimble who he wants the referral sent to when he returns next week. Patient then has some questions regarding her Creon, states that the pharmacy has messaged the office with some questions regarding the prescription and she would like that to be a 90 day supply. I do not see any notes from a pharmacy, will message the LATIA Rivera in the clinic and Dr. Braun. TELEPHONE Observed: 05/14/2025 12:00 AM Status: COMPLETED Source: [facility] [id number] Jose Alberto Saleem 06/1965 Date Provider Department Center 05/14/2025 [id number] PAT [facility] Family History Problem Relation Age of Onset Hyperlipidemia Mother Hyperlipidemia Father Hyperlipidemia Brother Heart attack Brother Family Status - Relation Status Age at Mother Father BrotherBrother TELEPHONE Observed: 05/14/2025 12:00 AM Status: COMPLETED Source: [facility] [id number] Alberto Ferris 06/1965 Provider Department Center 05/14/2025 [facility] Family History Problem Relation Age of Onset Hyperlipidemia Mother Hyperlipidemia Father Hyperlipidemia Brother Heart attack Brother Family Status - Relation Status Age at Mother Father BrotherBrother 29 Observed: 05/08/2025 10:30 AM Status: COMPLETED Source: [facility] Addended by: MIMI BRAUN on: 05/14/2025 03:06 PM Modules accepted: Orders 29 Observed: 05/08/2025 10:30 AM Status: COMPLETED Source: [facility] Addended by: MIMI BRAUN on: 05/12/2025 05:18 PM Modules accepted: Orders FOLLOW-UP Observed: 05/08/2025 10:30 AM Status: COMPLETED Source: [facility] [id number] Jose Alberto Saleem 06/1965 Date Provider Department Center 05/08/2025 CHAUNCEY CESPEDSE [facility] Family History Problem Relation Age of Onset Hyperlipidemia Mother Hyperlipidemia Father Hyperlipidemia Brother Heart attack Brother Family Status - Relation Status Age at Mother Father Brother Brother Level of Service:71310 GA OFFICE/OUTPATIENT ESTABLISHED MOD MDM 30 MIN () Reason for Visit and Comments: Follow-up [[id number]] PROGRESS Observed: 05/08/2025 10:30 AM Status: COMPLETED Source: [facility] Attestation signed by Chauncey Kimble MD at 05/08/2025 4:15 PM I personally saw the patient with the resident/fellow on the same day of service. I discussed the findings and therapeutic plan with the resident/fellow and with the patient. I agree with the documentation. [facility] Gastroenterology Follow-Up Patient Visit CHIEF COMPLAINT No chief complaint on file. HISTORY OF PRESENT ILLNESS: The patient is a 59-year-old female with a history of Romina-en-Y gastric bypass, cholecystectomy (1990s), coronary artery bypass graft (CABG), gastroesophageal reflux disease (GERD), nutcracker syndrome, and xerostomia on cevimeline. She presents for evaluation of recurrent acute pancreatitis, with ongoing complaints of crampy abdominal pain that occurs after consuming fatty foods. The pain radiates to the back and is described as severe (10/10 intensity), with partial relief from tramadol. She denies vomiting but reports having an average of 5 non-bloody bowel movements per week. Initially, she reported weight gain over the past few months, but more recently she has experienced weight gain in the past couple of months. She denies diarrhea and states she can tolerate fruit and protein shakes. Her first documented episode of acute pancreatitis was in October 2022, patient last episode of pancreatitis was in 12/2024 and noted to have lipase of 569 . No clear etiology has been identified. An MRCP did not reveal biliary dilation or stones. She had been on hydrochlorothiazide (HCTZ) for some time prior to her first episode of pancreatitis, making it an unlikely cause. Liver function tests have consistently shown ALT 35, AST 23, ALP 90 . A prior liver donor workup reportedly ruled out fatty liver disease. The patient denies any history of autoimmune conditions. INTERVAL HISTORY 05/08/2025: Patient is here for post prandial abdominal pain, mostly triggered by fatty diet. She reported that her last episode lasted for 5 days after eating crackers. PREVIOUS LABS/IMAGING/ENDOSCOPY: HISTORY: Problem list: Problem List[1] Past Medical History: Medical History[2] Past Surgical History: Surgical History[3] FAMILY HISTORY: Family History[4] SOCIAL HISTORY: Social History[5] ALLERGIES: Baclofen; Latex, natural rubber; Penicillins; Sulfa (sulfonamide antibiotics); Rosuvastatin; Sulfamethoxazole-trimethoprim; Fenofibrate; Fenofibrate micronized; Fluvastatin; Levofloxacin; Phenazopyridine; Simvastatin; Trimethoprim; and Tobramycin Current Medications: Current Medications[6] I reviewed and reconciled this patient's medication [...] or weight on file to calculate BMI. GEN: Alert and oriented x3, NAD HEENT: Atraumatic, normocephalic CV: Regular rate and rhythm PULM: Breathing comfortably ABD: Soft, non-tender, non-distended NEURO: Moves all 4 extremities spontaneously LABORATORY DATA: CBC: Lab Results Component Value [...] B12/Folate/Iron studies: Lab Results Component Value Date [id number] 1,862 (H) 02/27/2024 FOLATE 39.0 02/27/2024 IRON [...] Date TRIG 144 02/27/2024 CALCIUM 9.9 02/27/2024 Pancreatic Elastase, F 174 Low ASSESSMENT AND PLAN: Acute recurrent pancreatitis (Primary) with post fatty prandial abdominal pain. 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 Recent episode on 01/02/2025: Elevated lipase >4??? ULN, treated with IV morphine and hyoscyamine, followed by resolution of symptoms and normalization of labs with bowel rest. Denies diarrhea, steatorrhea, or jaundice. Reports chronic incomplete evacuation despite Colace and DigestSyn use. Miralax ineffective. Creon 1 cap with meals. Other medications: Plavix, aspirin, amlodipine, PRN [place], Myrbetriq. MRCP (early December 2024): No pancreatic mass, no ductal dilation or obstructive pathology; post-cholecystectomy changes with borderline CBD dilation to 0.8 cm. Unclear etiology hx of cholecystectomy in 1989 due to pain and sludge MRCP negative for CBD dilation, mild AST/ALT elevation denies alcohol use has hx of TGs 1800 that have been controlled after weight loss. Denies smoking. EUS 03/24 unremarkable (however exam limited due to altered anatomy) D/D pancreatic divisim/SOD/Biliary sludge/microlithiasis 3. Epigastric pain most likely 2/2 SOD dysfunction. Recent EGD 03/24 negative. 4. History of Elevated LFT's- Recent LFT'S normal. Tissue transglutaminase, IgA, Hepatitis panel, acute; Future, Iron and TIBC, IgG 1, 2, 3, and 4; Mitochondrial antibodies,; Protime-INR; Anti-smooth muscle antibody titer; CHAY; [id number]; Ferritin, Comprehensive metabolic panel; IgA; CBC and differential; Lipid panel; Hemoglobin A1c (negative) Fib-4 revealed F2 fibrosis however it was done while LFT were elevated. No recent fibroscan 5. History of Romina-en-Y gastric bypass 6 years ago Vitamin B-12, Folate; Copper, serum; Vitamin D 25 hydroxy (2023 normal) 6. Colorectal cancer screening Last colonoscopy 2022 at [place] with poor bowel prep. 7. CAD s/p CABG and multiple PCI Plan: Normal HIDA scan status post cholecystectomy with radiotracer activity freely moving into the small bowel no later than 15 [place] [address] with meals and 1/2 the dose with snack reinforce compliance and assess response. Reinforce constipation regimen: Continue Colace; consider reinitiating Miralax or alternative osmotic laxative; dietary fiber optimization. Patient offered referral for [facility] [place] for ERCP for SOD management and she agreed. There are no diagnoses linked to this encounter. Thank you for allowing me to participate in this pleasant patient???s care. Case seen and discussed with attending physician. Roberto Braun MD. Gastroenterology and Hepatology Fellow [facility] [1] Patient Active Problem List Diagnosis Acute myocardial infarction (CMS/HCC) Angina pectoris Atherosclerosis of coronary artery of [place] heart without angina pectoris Cellulitis of [...] PTCA (percutaneous transluminal coronary angioplasty) Statin intolerance [2] Past Medical History: Diagnosis Date Myocardial infarction (CMS/HCC) 10 yrs ago Pancreatitis Oct 2022 [3] Past Surgical History: Procedure Laterality Date APPENDECTOMY BARIATRIC SURGERY 5 yrs ago CHOLECYSTECTOMY [4] Family History Problem Relation Name Age of Onset Hyperlipidemia Mother Gretta Hyperlipidemia Father Munoz Hyperlipidemia Brother [place] Heart attack Brother Ray [5] Social History Tobacco Use Smoking status: Never Smokeless tobacco: Never Vaping Use Vaping status: Never Used Substance Use Topics Alcohol use: Never Drug use: Never [6] Current Outpatient Medications: amLODIPine (Norvasc) 2.5 mg tablet, Take 2.5 mg by mouth in the morning., Disp: , Rfl: aspirin 81 mg EC tablet, Take 81 mg by mouth 1 (one) time., Disp: , Rfl: casanthranol/docusate sodium (STOOL SOFTENER PLUS LAXATIVE ORAL), Take by mouth. DIGESTSYNC is what she is taking OTC, Disp: , Rfl: cevimeline (Evoxac) 30 mg capsule, Take 30 mg by mouth three times daily., Disp: , Rfl: citalopram (CeleXA) 20 mg tablet, Take 20 mg by mouth in the morning., Disp: , Rfl: clopidogrel (Plavix) 75 mg tablet, Take 75 mg by mouth in the morning., Disp: , Rfl: Creon 24,000-76,000 -120,000 unit capsule, , Disp: , Rfl: estradiol (Estrace) 0.01 % (0.1 mg/gram) vaginal cream, Insert into the vagina in the morning., Disp: , Rfl: fluticasone (Flonase) 50 mcg/actuation nasal spray, INSTILL 1 SPRAY IN EACH NOSTIRL TWICE A DAY. for 90, Disp: , Rfl: HYDROcodone-acetaminophen ([place]) 5-325 mg tablet, , Disp: , Rfl: hyoscyamine (Anaspaz,Levsin) 0.125 mg tablet, 2 tablet as needed Orally every 4 hrs PRN abd pain, Disp: , Rfl: mirabegron 50 mg tablet extended release 24 hr, Take 50 mg by mouth., Disp: , Rfl: ondansetron ODT (Zofran-ODT) 4 mg disintegrating tablet, , Disp: , Rfl: RABEprazole (Aciphex) 20 mg EC tablet, Take 20 mg by mouth in the morning and at bedtime., Disp: , Rfl: tamsulosin (Flomax) 0.4 mg 24 hr capsule, Take 0.4 mg by mouth in the morning., Disp: , Rfl: traMADol (Ultram) 50 mg tablet, , Disp: , Rfl: 36 Observed: 03/25/2025 11:39 AM Status: COMPLETED Source: [facility] I called the patient and dis cussed the MRI/ MRCP findings and the patient confirmed ongoing symptoms especially with the greasy food, meat, chocolate which making her avoiding several items from her daily diet to avoid exacerbation and worsening of the symptoms. Recommended following up visit in the cleaning with the Dr. Kimble to discuss the next steps during the clinic visit and the patient endorsed understanding and agreement. All the questions were answered and the clinic scheduling team were notified and Dr. Kimble is aware of the plan. TELEPHONE Observed: 03/25/2025 12:00 AM Status: COMPLETED Source: [facility] [id number] Burke Saleemette 06/1965 F Date Provider Department Center 03/25/2025 Abbie-SANDRA MARTIN [facility] Family History Problem Relation Age of Onset Hyperlipidemia Mother Hyperlipidemia Father Hyperlipidemia Brother Heart attack Brother Family Status - Relation Status Age at Mother Father BrotherBrother 36 Observed: 03/20/2025 9:56 AM Status: COMPLETED Source: [facility] 03/25/25@1020 Left patient a message that she will need to be seen in the clinic to review test results and review follow up plan. There was a cancellation for 05/08/25 at 1030 and scheduled that appointment requested a call back to confirm. 03/20/25 Patient called today as follow up from her office visit with Dr. Chauncey Kimble on 01/09/25. Has multiple questions and thought that she was going to be referred to another GI physician or surgeon. States has has testing that was required and even though she did receive a phone call with testing results is not sure what she should do for follow up. States no new admission for pancreatitis since seeing Dr. Kimble. Will see if Dr. Kimble is planning on a referral or should she follow up in the clinic. TELEPHONE Observed: 03/20/2025 12:00 AM Status: COMPLETED Source: [facility] [id number] Jose Alberto Saleem 06/1965 F Date Provider Department Center 03/20/2025 [id number] MENJIVAR [facility] Family History Problem Relation Age of Onset Hyperlipidemia Mother Hyperlipidemia Father Hyperlipidemia Brother Heart attack Brother Family Status - Relation Status Age at Mother Father BrotherBrother 36 Observed: 02/18/2025 12:29 PM Status: COMPLETED Source: [facility] Called and discussed with jalen ford pt the HIDA and MRCP in details. ----- Message from Gisela sent at 02/11/2025 3:15 PM EDT ----- Patient calling for results and follow up plan. Office visit with you and Dr. Kimble 01/09/25 36 Observed: 02/18/2025 12:28 PM Status: COMPLETED Source: [facility] ----- Message from Gisela sent at 02/11/2025 3:15 PM EDT ----- Patient calling for results and follow up plan. Office visit with you and Dr. Kimble 01/09/25 TELEPHONE Observed: 02/18/2025 12:00 AM Status: COMPLETED Source: [facility] [id number] Jose Alberto Saleem 06/1965 Date Provider Department Center 02/18/2025 SANDRA BURRIS [facility] Family History Problem Relation Age of Onset Hyperlipidemia Mother Hyperlipidemia Father Hyperlipidemia Brother Heart attack Brother Family Status - Relation Status Age at Mother Father BrotherBrother TELEPHONE Observed: 02/18/2025 12:00 AM Status: COMPLETED Source: [facility] [id number] Burke Saleemette 06/1965 Date Provider Department Center 02/18/2025 SANDRA BURRIS [facility] Family History Problem Relation Age of Onset Hyperlipidemia Mother Hyperlipidemia Father Hyperlipidemia Brother Heart attack Brother Family Status - Relation Status Age at Mother Father BrotherBrother 36 Observed: 02/11/2025 3:15 PM Status: COMPLETED Source: [facility] Patient called me to get res ults of HIDA scan and then what to do as follow up. I do see the HIDA scan results from 01/30/25 @ [facility] and they are normal will forward to Dr. Martin on of our [facility] to see what further he would like to do. TELEPHONE Observed: 02/11/2025 12:00 AM Status: COMPLETED Source: [facility] [id number] Burke Saleemette 06/1965 Provider Department Center 02/11/2025 [facility] [place] Family History Problem Relation Age of Onset Hyperlipidemia Mother Hyperlipidemia Father Hyperlipidemia Brother Heart attack Brother Family Status - Relation Status Age at Mother Father BrotherBrother NM HIDA W EJECTION FRACTION Observed: 9:05 AM Status: UNK Source: [facility] CLINICAL INFORMATION: Sphinc ter of [place] dysfunction. Idiopathic acute pancreatitis.. TECHNIQUE/PROCEDURE: [...] Electronically signed: Viet Prado M.D.. Not Vldtd PANCREATIC ELASTASE, F Collected: 01/17 10:19 AM Status: COMPLETED Source: [facility] TYPE CODE TESTS RESULT OUT OF RANGE REFERENCE UNITS LAB PNCEFR(LOINC) Pancreatic Elastase, F 174 Low >200 (Normal) mcg/g Result Comment: NOTE Interpretation: Borderline (100-200 mcg/g); Consistent with slight to moderate pancreatic insufficiency Test Performed by: [facility] [address] [place] [address] Sample Display Preparer: Andra Flores Ph.D.; CLIA# [id number] Performed By: #### [id number] # ### [facility] ([id number]) [address] [place] [address], [place] [address] 29 Observed: 01/09/2025 9:00 AM Status: COMPLETED Source: [facility] Addended by: CHAUNCEY KIMBLE on: 01/10/2025 08:32 AM Modules accepted: Level of Service FOLLOW-UP Observed: 01/09/2025 9:00 AM Status: COMPLETED Source: [facility] [id number] Jose Alberto Saleem 06/1965 F Date Provider Department Center 01/09/2025 375-CHAUNCEY KIMBLE [facility] GI [facility] Family History Problem Relation Age of Onset Hyperlipidemia Mother Hyperlipidemia Father Hyperlipidemia Brother Heart attack Brother Family Status - Relation Status Age at Mother Father Brother Brother Level of Service:81181 [place] OFFICE/OUTPATIENT ESTABLISHED MOD MDM 30 MIN () Reason for Visit and Comments: Follow-up [370679] - MRI follow up and seen at [facility] and in hospital for 1 day. Will get records. Enzo helped tremendously this time and she came home with it, She just complains of fatigue. PCP Ordered sleep study PROGRESS Observed: 01/09/2025 9:00 AM Status: COMPLETED Source: [facility] Attestation signed by Chauncey Kimble MD at 01/10/2025 8:31 AM I personally saw the patient with the resident/fellow on the same day of service. I discussed the findings and therapeutic plan with the resident/fellow and with the patient. I agree with the documentation. [facility] Gastroenterology New Patient Visit - History & Physical CHIEF COMPLAINT Chief Complaint Patient presents with Follow-up MRI follow up and seen at [facility] and in hospital for 1 day. Will [...] on for which she was admitted at [facility] and was management symptomatically. Patient [...] Plavix, baby aspirin, amlodipine, and a PRN [place] for pain. Of note, she has a [...] which were ordered at the outside facility ([facility]) and remain pending. A HIDA scan may also be pursued for further evaluation. She reports extreme fatigue post-hospitalization, interfering with her work and daily function. She prefers to avoid surgical intervention unless necessary and is open to advanced enteroscopy (e.g., device-assisted ERCP) at tertiary centers ([facility] or [facility]) as a less invasive alternative to laparoscopic-assisted ERCP. Plan includes requesting complete LFTs and pancreatic enzyme data from 01/02/2025 ER visit, considering HIDA scan, and coordinating referral if diagnosis of SOD is confirmed. PREVIOUS LABS/IMAGING/ENDOSCOPY: MRCP 02/12/2024 EUS-03/24 Findings: ENDOSCOPIC FINDING: : The upper third of the esophagus, middle third of the esophagus and lower third of the esophagus were normal. Evidence of a Romina-en-Y gastrojejunostomy was found. The gastrojejunal anastomosis was characterized by healthy appearing mucosa. This was traversed. The rxhvx-tx-cmcwmqz limb was characterized by healthy appearing mucosa. [...] Angina pectoris Atherosclerosis of coronary artery of [place] heart without angina pectoris Cellulitis of [...] Mother Katharyn Hyperlipidemia Father Munoz Hyperlipidemia Brother [place] Heart attack Brother Ray SOCIAL HISTORY: Social [...] mouth in the morning., Disp: , Rfl: aspirin 81 mg EC tablet, Take 81 mg by mouth 1 (one) time., Disp: , Rfl: casanthranol/docusate sodium (STOOL SOFTENER PLUS LAXATIVE ORAL), Take by mouth. DIGESTSYNC is what she is taking OTC, Disp: , Rfl: cevimeline (Evoxac) 30 mg capsule, Take 30 mg by mouth three times daily., Disp: , Rfl: citalopram (CeleXA) 20 mg tablet, Take 20 mg by mouth in the morning., Disp: , Rfl: clopidogrel (Plavix) 75 mg tablet, Take 75 mg by mouth in the morning., Disp: , Rfl: Creon 24,000-76,000 -120,000 unit capsule, , Disp: , Rfl: estradiol (Estrace) 0.01 % (0.1 mg/gram) vaginal cream, Insert into the vagina in the morning., Disp: , Rfl: fluticasone (Flonase) 50 mcg/actuation nasal spray, INSTILL 1 SPRAY IN EACH NOSTIRL TWICE A DAY. for 90, Disp: , Rfl: HYDROcodone-acetaminophen ([place]) 5-325 mg tablet, , Disp: , Rfl: hyoscyamine (Anaspaz,Levsin) 0.125 mg tablet, 2 tablet as needed Orally every 4 hrs PRN abd pain, Disp: , Rfl: mirabegron 50 mg tablet extended release 24 hr, Take 50 mg by mouth., Disp: , Rfl: ondansetron ODT (Zofran-ODT) 4 mg disintegrating tablet, , Disp: , Rfl: RABEprazole (Aciphex) 20 mg EC tablet, Take 20 mg by mouth in the morning and at bedtime., Disp: , Rfl: tamsulosin (Flomax) 0.4 mg 24 hr capsule, Take 0.4 mg by mouth in the morning., Disp: , Rfl: traMADol (Ultram) 50 mg tablet, , Disp: , Rfl: I reviewed and reconciled [...] NEUROLOGICAL: negative BEHAVIOR/PSYCH: negative PHYSICAL EXAM: Vitals: 01/09/25 0908 BP: 137/83 Pulse: 76 Weight: 78 kg (172 lb) Body mass index is 30.47 kg/m???. 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 Recent episode on 01/02/2025: Elevated lipase >4??? ULN, treated with IV morphine and hyoscyamine, followed by resolution of symptoms and normalization of labs with bowel rest. Denies diarrhea, steatorrhea, or jaundice. Reports chronic incomplete evacuation despite Colace and DigestSyn use. Miralax ineffective. Creon 1 cap with meals inconsistently taken. Other medications: Plavix, aspirin, amlodipine, PRN [place], Myrbetriq. MRCP (early December 2024): No pancreatic mass, no ductal dilation or obstructive pathology; post-cholecystectomy changes with borderline CBD dilation to 0.8 cm. Unclear etiology hx of cholecystectomy in 1989 [...] antibodies,; Protime-INR; Anti-smooth muscle antibody titer; CHAY; Ctmqk-0-tujgcawvswt; Ferritin, Comprehensive metabolic panel; IgA; CBC and differential; Lipid panel; Hemoglobin A1c (negative) Fib-4 revealed F2 fibrosis however it was done while LFT were elevated. No recent fibroscan 4. History of Romina-en-Y gastric bypass 6 years ago Vitamin B-12, Folate; Copper, serum; Vitamin D 25 hydroxy (2023 normal) 5. Colorectal cancer screening Last colonoscopy 2022 at [place] with poor bowel prep. 6. CAD s/p CABG and multiple PCI Plan: Request full laboratory data from 01/02/2025 ER visit at [facility], including LFTs and pancreatic enzymes to correlate with symptom onset. Order HIDA scan to evaluate biliary dyskinesia or functional obstruction. Continue Creon with meals; reinforce compliance and assess response. Reinforce constipation regimen: Continue Colace; consider reinitiating Miralax or alternative osmotic laxative; dietary fiber optimization. If labs confirm SOD pattern, initiate referral for device-assisted ERCP at tertiary center ([facility] or [facility]); patient prefers non-surgical approach. 36 Observed: 01/02/2025 3:47 PM Status: COMPLETED Source: [facility] 01/02/25@1548 Returned a phone call to patient. She had wanted to follow up with Dr. Chauncey Kimble to let him know she is currently in the ER at [facility] dx with pancreatitis. She had an MRCP on 12/31/24 and if any other lab work needs done to call the Hospital. TELEPHONE Observed: 01/02/2025 12:00 AM Status: COMPLETED Source: [facility] [id number] Jose Alberto Saleem 06/1965 F Date Provider Department Center 01/02/2025 7109-GISELA MENJIVAR [facility] [place] Family History Problem Relation Age of Onset Hyperlipidemia Mother Hyperlipidemia Father Hyperlipidemia Brother Heart attack Brother Family Status - Relation Status Age at Mother Father BrotherBrother MR ABDOMEN W AND WO CONTRAST MRCP Observed: 12/31/2024 1:18 PM Status: UNK Source: [facility] MRI ABDOMEN WITHOUT AND WITH CONTRAST AND [...] Electronically signed: Figueroa Landeros MD. Not Vldtd FOLLOW-UP Observed: 12/12/2024 9:30 AM Status: COMPLETED Source: [facility] [id number] Jose Alberto Saleem 06/1965 F Date Provider Department Center 12/12/2024 375-CHAUNCEY KIMBLE [facility] GI [facility] Family History Problem Relation Age of Onset Hyperlipidemia Mother Hyperlipidemia Father Hyperlipidemia Brother Heart attack Brother Family Status - Relation Status Age at Mother Father Brother Brother Level of Service:28826 [place] OFFICE/OUTPATIENT NEW MODERATE MDM 45 MINUTES (GC) Reason for Visit and Comments: Pancreatitis [013375] - Pain when she stresses or when she eats. She has trouble with losing weight as she always feels bloated and gassy. PROGRESS Observed: 12/12/2024 9:00 AM Status: COMPLETED Source: [facility] Attestation signed by Chauncey Kimble MD at 12/12/2024 3:31 PM I personally saw the patient with the resident/fellow on the same day of service. I discussed the findings and therapeutic plan with the resident/fellow and with the patient. I agree with the documentation. [facility] Gastroenterology New Patient Visit - [...] on for which she was admitted at [facility] and was management symptomatically. Patient [...] healthy appearing mucosa. This was traversed. The gynde-pz-psuedqy limb was characterized by healthy appearing mucosa. [...] Angina pectoris Atherosclerosis of coronary artery of [place] heart without angina pectoris Cellulitis of [...] Mother Katharyn Hyperlipidemia Father Munoz Hyperlipidemia Brother [place] Heart attack Brother Ray SOCIAL HISTORY: Social [...] B12/Folate/Iron studies: Lab Results Component Value Date [id number] 1,862 (H) 02/27/2024 FOLATE 39.0 02/27/2024 IRON [...] antibodies,; Protime-INR; Anti-smooth muscle antibody titer; CHAY; Fgtao-6-jtnkwpexomz; Ferritin, Comprehensive metabolic panel; IgA; CBC and differential; Lipid panel; Hemoglobin A1c (negative) Fib-4 revealed F2 fibrosis however it was done while LFT were elevated. No recent fibroscan 4. History of Romina-en-Y gastric bypass 6 years ago Vitamin B-12, Folate; Copper, serum; Vitamin D 25 hydroxy (2023 normal) 5. Colorectal cancer screening Last colonoscopy 2022 at [place] with poor bowel prep. 6. CAD s/p CABG and multiple PCI Plan: Obtain MRI with MRCP with and with out contrast. Consider repeat colonoscopy with 2 day bowel prep given last colonoscopy was with poor prep. Patient was advised to inform us if she develops any other episode of pancreatitis. XR FOREARM RT 2 VWS Observed: 10/11/2024 1:55 PM Status: COMPLETED Source: [facility] XR FOREARM RT 2 VWS CLINICAL INFORMATION: Right arm pain TECHNIQUE: XR FOREARM RT 2 VWS 2 views right forearm are obtained. There is no acute osseous, articular, or soft tissue abnormality. IMPRESSION: Negative exam. Finalized by Afshin Barrett MD on 10/11/2024 1:59 PM ECG 12 LEAD ECG Observed: 08/22/2024 7:14 AM Status: COMPLETED Source: [facility] [place] [address] Electrocardiograph Report Signed Patient: Jose Alberto Saleem MR#: [id number] 571 : 1965 Acct:[id number] Age/Sex: 59 / F ADM Date: 08/20/24 Loc: Room: [address] [place] [address] Type: DIS IN Attending Dr: Kaiser Quijano [...] abnormality Abnormal ECG Confirmed by Bella Stein ([id number]) on 08/22/2024 11:33:07 PM Referred By: Bella Stein Electronically Signed By: Bella Stein Transcribed By: MUS Signed By Bella Stein MD 4 2333 TROPONIN I HIGH SENSITIVITY Collected: 08/22/2024 4:4 4 AM Status: F Source: [facility] TYPE CODE TESTS RESULT OUT OF RANGE REFERENCE UNITS LAB HS TROP Troponin I High Sensitivity 1211.6 High Off Scale 0.0-15.0 pg/mL Result Comment: Critical Res ult : Called to and read back by: ROB MCDONALD at: 08/22/2024 06:38:37 by:RAMONA PERFORMED BY: [place] [address] PATHOLOGIST VOIP NETWORK ENGINEER JANA OLMEDO M.D. Performed By: #### HS TROP # ### [address] ECG 12 LEAD ECG Observed: 08/21/2024 5:46 PM Status: COMPLETED Source: [facility] [place] [address] Electrocardiograph Report Signed Patient: Jose Alberto Saleem MR#: [id number] 571 : 1965 Acct:[id number] Age/Sex: 59 / F ADM Date: 08/20/24 Loc: Room: [address] [place] [address] Type: DIS IN Attending Dr: Kaiser Quijano [...] abnormality Abnormal ECG Confirmed by Bella Stein ([id number]) on 08/22/2024 11:33:52 PM Referred By: Bella Stein Electronically Signed By: Bella Stein Transcribed By: MUS Signed By Bella Stein MD 4 2333 COMPLETE BLOOD COUNT AUTO DIFF Collected: 08/21/2024 6:41 AM Status: F Source: [facility] TYPE CODE TESTS RESULT OUT OF RANGE [...] % LAB NRBC% NRBC% 0.1 Normal 0-0.5 /100{WBC} LAB NE# Neutrophils # (Auto) 2.5 Normal 1.8-7.7 10*3/uL LAB LY# Lymphocytes # (Auto) 1.7 Normal 1.00-4.8 10*3/uL LAB MO# Monocytes # (Auto) 0.5 Normal 0.0-0.8 10*3/uL LAB EO# Eosinophils # (Auto) 0.2 Normal 0.0-0.45 10*3/uL LAB BA# Basophils # (Auto) 0.0 Normal 0.0-0.2 10*3/uL Result Comment: PERFORMED BY : [place] [address] PATHOLOGIST VOIP NETWORK ENGINEER JANA OLMEDO M.D. Performed By: #### GEOFFREY, ALESSANDRO N, PP, CBC, LYTES #### [address] COAGULATION PROFILE Collected: 08/21/2024 6:[address] atus: F Source: [facility] TYPE CODE TESTS RESULT OUT OF RANGE REFERENCE UNITS LAB R PT Prothrombin Time 12.2 Normal 9.0-12.9 s Result Comment: A hematocrit value greater than 55% may lead to inaccurate results in coagulation testing. Patients having hematocrit values >55% require a special collection tube for coagulation studies. Please contact the laboratory at [phone] for redraw instructions. LAB INR INR 1.1 [...] coagulation studies. Please contact the laboratory at [phone] for redraw instructions. PERFORMED BY: [place] [address] PATHOLOGIST VOIP NETWORK ENGINEER JANA OLMEDO M.D. Performed By: #### CREAT, BU N, PP, CBC, LYTES #### [address] ELECTROLYTES Collected: 6:41 AM Status: F Source: [facility] TYPE CODE TESTS RESULT OUT OF RANGE REFERENCE UNITS LAB NA Sodium 140 Normal 136-145 mmol/L LAB K Potassium 3.9 Normal 3.5-5.1 mmol/L LAB CL Chloride 105 Normal 98-107 mmol/L LAB CO2 Carbon Dioxide 27.9 Normal 21.0-31.0 mmol/L LAB GAP Anion Gap 11.0 Normal 6.0-15.0 meq/L Performed By: #### CREAT, BU N, PP, CBC, LYTES #### [address] BLOOD UREA NITROGEN Collected: 08/21/2024 6:[address] atus: F Source: [facility] TYPE CODE TESTS RESULT OUT OF RANGE REFERENCE UNITS LAB BUN Blood Urea Nitrogen 14 Normal 7-25 mg/dL Performed By: #### CREAT, BU N, PP, CBC, LYTES #### [place] [id number] [facility] CREATININE Collected: 08/21/2024 6:41 AM Status: F Source: [facility] TYPE CODE TESTS RESULT OUT OF RANGE REFERENCE UNITS LAB CREATT Creatinine 0.61 Normal 0.60-1.20 mg/dL LAB GFReNR Estimated GFR >60.0 mL/Min LAB CRCLPHA Creatinine Clr Calc Pharmacy 97.73 Result Comment: PERFORMED BY : [place] [address] PATHOLOGIST VOIP NETWORK ENGINEER JANA OLMEDO M.D. Performed By: #### CREAT, BU N, PP, CBC, LYTES #### [place] [id number] [facility] NM RADAH PERF SPECT REST STR Observed: 08/20/2024 3:52 PM Status: COMPLETED Source: [facility] [place] [address] Nuclear Medicine Report Signed Patient: Jose Alberto Saleem MR#: [id number] 571 : 1965 Acct:[id number] Age/Sex: 59 / F ADM Date: 08/18/24 Loc: Room: [address] [place] [address] Type: ADM INOo Attending Dr: Chucky Dunn [...] Bella Stein M.D.08/20/2024 3:56 PM Dictation Location: [place] [address] Transcribed By: [facility] 08/20/241555 Dictated By: Bella Stein MD 08/20/24 155 Signed By: <Electronically signed by Bella Stein MD in OV> 08/20/24 1556 ECG 12 LEAD ECG Observed: 08/19/2024 1:28 PM Status: COMPLETED Source: [place] [address] Electrocardiograph Report Signed Patient: Jose Alberto Saleem MR#: [id number] 571 : 1965 Acct:[id number] Age/Sex: 59 / F ADM Date: 08/18/24 Loc: Room: [address] [place] [address] Type: ADM INOo Attending Dr: Chucky Dunn [...] abnormality Abnormal ECG Confirmed by Bella Stein ([id number]) on 08/21/2024 12:00:39 AM Referred By: Bella Stein Electronically Signed By: Bella Stein Transcribed By: MUS Signed By Bella Stein MD 4 0000 ECG 12 LEAD ECG Observed: 08/19/2024 1:06 PM Status: COMPLETED Source: [facility] [address] [address] Electrocardiograph Report Signed Patient: Jose Alberto Saleem MR#: [id number] 571 : 1965 Acct:[id number] Age/Sex: 59 / F ADM Date: 08/18/24 Loc: Room: [address] [place] [address] Type: ADM INOo Attending Dr: Chucky Dunn [...] rhythm Leftward axis Confirmed by Bridgett Monreal ([id number]) on 08/20/2024 11:52:24 PM Referred By: Bella Stein Electronically Signed By: Bridgett Monreal Transcribed By: MUS Signed By Bridgett Monreal MD 08/20/24 0022 TROPONIN I HIGH SENSITIVITY Collected: 08/19/2024 6:4 9 AM Status: F Source: [facility] TYPE CODE TESTS RESULT OUT OF RANGE REFERENCE UNITS LAB HS TROP Troponin I High Sensitivity 4.6 Normal 0.0-15.0 pg/mL Result Comment: PERFORMED BY : [place] [address] PATHOLOGIST VOIP NETWORK ENGINEER JANA OLMEDO M.D. Performed By: #### A1C WTH e A, HS TROP #### [place] [id number] [facility] A1C WITH ESTIMATED AVERAGE GLU Collected: 08/19/2024 6:49 AM Status: F Source: [facility] TYPE CODE TESTS RESULT OUT OF RANGE REFERENCE UNITS LAB .A1C Hemoglobin A1C 5.7 High 4.3-5.6 % Result Comment: Increased ri sk for diabetes: 5.7 - 6.4 diabetes: >6.4 glycemic control for adults with diabetes: <7.0 LAB eAG Estimated Average Glucose 117 mg/dL Result Comment: PERFORMED BY : [address] [address] PATHOLOGIST VOIP NETWORK ENGINEER JANA OLMEDO M.D. Performed By: #### A1C WTH e A, HS TROP #### [place] [id number] [facility] TROPONIN I HIGH SENSITIVITY Collected: 08/18/2024 11: 16 PM Status: F Source: [facility] TYPE CODE TESTS RESULT OUT OF RANGE REFERENCE UNITS LAB HS TROP Troponin I High Sensitivity 4.7 Normal 0.0-15.0 pg/mL Result Comment: PERFORMED BY : [place] [address] PATHOLOGIST VOIP NETWORK ENGINEER JANA OLMEDO M.D. Performed By: #### HS TROP # ### [place] [id number] [facility] XR CHEST 2V* Observed: 08/18/2024 10:11 PM Status: COMPLETED Source: [facility] [place] [address] XRay Report Signed Patient: Jose Alberto Saleem MR#: [id number] 571 : 1965 Acct:[id number] Age/Sex: 59 / F ADM Date: 08/18/24 Loc: Room: [address] [place] [address] Type: ADM INOo Attending Dr: Donis Arroyo [...] Thelma Wick M.D.08/19/2024 12:10 AM Dictation Location: [place] [address] Transcribed By: [facility] 08/19/24 0010 Dictated By: Thelma Wick MD 08/18/242210 Signed By: <Electronically signed by MD Thelma Wick in OV> 08/19/24 0010 COMPLETE BLOOD COUNT AUTO DIFF Collected: 08/18/2024 9:01 PM Status: F Source: [facility] TYPE CODE TESTS RESULT OUT OF RANGE [...] 0.0-0.2 10*3/uL Result Comment: PERFORMED BY : [place] [address] PATHOLOGIST VOIP NETWORK ENGINEER JANA OLMEDO M.D. Performed By: #### HS TROP, LIPASE, PT, BMP, HEPATIC, CK, CBC, BNP #### [facility] [address] [place] [address] [facility] BASIC METABOLIC PANEL Collected: 08/18/2024 9:01 PM Status: F Source: [facility] TYPE CODE TESTS RESULT OUT OF RANGE [...] Pharmacy 95.72 Result Comment: PERFORMED BY : [place] [address] PATHOLOGIST VOIP NETWORK ENGINEER JANA OLMEDO M.D. Performed By: #### HS TROP, LIPASE, PT, BMP, HEPATIC, CK, CBC, BNP #### [facility] [address] [place] [address] [facility] PROTHROMBIN TIME INR Collected: 08/18/2024 9:01 PM S tatus: F Source: [facility] TYPE CODE TESTS RESULT OUT OF RANGE REFERENCE UNITS LAB R PT Prothrombin Time 11.7 Normal 9.0-12.9 s Result Comment: A hematocrit value greater than 55% may lead to inaccurate results in coagulation testing. Patients having hematocrit values >55% require a special collection tube for coagulation studies. Please contact the laboratory at [phone] for redraw instructions. LAB INR INR 1.0 [...] heart valves: 3 - 4.5 PERFORMED BY: [place] [address] PATHOLOGIST VOIP NETWORK ENGINEER JANA OLMEDO M.D. Performed By: #### HS TROP, LIPASE, PT, BMP, HEPATIC, CK, CBC, BNP #### [address] B-TYPE NATRIURETIC PEPTIDE Collected: 08/18/2024 9:01 PM Status: F Source: [facility] TYPE CODE TESTS RESULT OUT OF RANGE REFERENCE UNITS LAB BNP B-Type Natriuretic Peptide 31.0 Normal 5-100 pg/mL Result Comment: PERFORMED BY : [place] [address] PATHOLOGIST VOIP NETWORK ENGINEER JANA OLMEDO M.D. Performed By: #### HS TROP, LIPASE, PT, BMP, HEPATIC, CK, CBC, BNP #### [place] [id number] [facility] CREATINE KINASE Collected: 08/18/2024 9:01 PM Status : F Source: [facility] TYPE CODE TESTS RESULT OUT OF RANGE REFERENCE UNITS LAB CK Creatine Kinase 53 Normal 30-223 U/L Performed By: #### HS TROP, LIPASE, PT, BMP, HEPATIC, CK, CBC, BNP #### [place] [id number] [facility] TROPONIN I HIGH SENSITIVITY Collected: 08/18/2024 9:0 1 PM Status: F Source: [facility] TYPE CODE TESTS RESULT OUT OF RANGE REFERENCE UNITS LAB HS TROP Troponin I High Sensitivity 5.1 Normal 0.0-15.0 pg/mL Result Comment: PERFORMED BY : [place] [address] PATHOLOGIST VOIP NETWORK ENGINEER JANA OLMEDO M.D. Performed By: #### HS TROP, LIPASE, PT, BMP, HEPATIC, CK, CBC, BNP #### [facility] [address] [place] [id number] [facility] HEPATIC PANEL Collected: 08/18/2024 9:01 PM Status: F Source: [facility] TYPE CODE TESTS RESULT OUT OF RANGE [...] PT, BMP, HEPATIC, CK, CBC, BNP #### [place] [id number] [facility] BASIC METABOLIC PANEL Collected: 08/18/2024 9:01 PM Status: F Source: [facility] TYPE CODE TESTS RESULT OUT OF RANGE [...] PT, BMP, HEPATIC, CK, CBC, BNP #### [place] [id number] [facility] LIPASE Collected: 9:01 PM Status: F Source: [facility] TYPE CODE TESTS RESULT OUT OF RANGE REFERENCE UNITS LAB LIPASE Lipase 110.0 High 11.0-82.0 U/L Result Comment: PERFORMED BY : [place] [address] PATHOLOGIST VOIP NETWORK ENGINEER JANA OLMEDO M.D. Performed By: #### HS TROP, LIPASE, PT, BMP, HEPATIC, CK, CBC, BNP #### [address] [address] [facility] ECG 12 LEAD ECG Observed: 08/18/2024 8:52 PM Status: COMPLETED Source: [facility] ENTER [facility] [place] [address] Electrocardiograph Report Signed Patient: Jose Alberto Saleem MR#: [id number] : 1965 Acct:[id number] Age/Sex: 59 / F ADM Date: 08/18/24 Loc: ER Room: Type: [facility] ER Attending Dr: Ordering Provider: Lynnette [...] wave abnormality Confirmed by Lynnette Chapman MD ([id number]) on 08/18/2024 11:22:40 PM Referred By: Electronically Signed By: Lynnette Chapman MD Transcribed By: MUS Signed By Lynnette Chapman MD 08/01 05/24 232 REMINDERS Observed: 08/05/2024 1:08 PM Status: F Source: [facility] Reminders From: Magdalena Longoria To: EU - Administrative; Sent: 08/05/2024 13:08:24 EST Show up: 03/01/2025 13:08:00 EDT Subject: 1 yr reminder Due Date/Time: 08/01/2025 13:08:00 EDT Reminder/Recall Patient needs scheduled with [facility] for a 1 yr f/u with [facility] OFFICE/CLINIC NOTE Observed: 01/2024 12:20 PM Status: F Source: [facility] Urology Office/Clinic Note Chief Complaint OAB HPI [...] Myrbetriq from 25mg to 50mg qd Ordered: 26546 Measure Post Void residual urine and/or bladder capacity by US- non- imaging E&M of Est. Patient Moderate 30-39 Min 66898 Urnls Dip Stick Auto w/o Microscopy POC 90758 2. Urethral pain (R39.89: Other symptoms and [...] Refills(s) 3, Pharmacy: [facility] [id number], 160, cm, 08/05/24 11:29:00 EST, Height/Length Dosing, 74.2, kg, 08/05/24 11:29:00 EST, Weight Dosing tamsulosin, 0.4 mg = 1 cap(s), Oral, Daily, # 90 cap(s), Refills(s) 3, Pharmacy: [facility], 160, cm, 08/05/24 11:29:00 EST, Height/Length Dosing, 74.2, kg, 08/05/24 11:29:00 EST, Weight Dosing Follow-up With When Contact Information TIFFANI MARTINO PA-C, URL Within 1 year Additional Instructions: Patient Education Kidney Stones, Jgdw-da-Mmsz Problem List/Past Medical History Ongoing Anticoagulated Feeling [...] Instructions, 6 refills fluticasone 0.05 mg/inh Nasal [place] mirabegron 50 mg oral tablet, extended release, [...] Protein Urine Dipstick: Negative (08/05/24 11:07:00) Specific Mayer Urine Dipstick: 1.010 (08/05/24 11:07:00) Urine Appearance Urine Dipstick: Clear (08/05/24 11:07:00) Urine Color Urine Dipstick: Yellow (08/05/24 11:07:00) Urobilinogen Urine Dipstick: Normal 0.2-1 EU/dl (08/05/24 11:07:00) pH Urine Dipstick: 6 (08/05/24 11:07:00) Result Comment: Electronical ly Signed By: TIFFANI MARTINO PA-C.pepe\Date and Time Signed: 08/05/24 12:20 EST PATIENT EDUCATION Observed: 08/05/2024 12:20 PM Status: F Source: [facility] Patient Education Urology Kidney Stones Kidney stones [...] these instructions at home: Medicines ??? Take fwzp-unr-jytitns and prescription medicines only as told by [...] provider. Document Revised: 05/11/2023 Document Reviewed: 05/11/2023 [employer] Patient Education ? 2023 [employer]. ALLERGIES DATE TYPE / CODE NAME / CODE REACTION SEVERITY SOURCE 08/18/2024 Drug Allergy/41 1325804(SN OMED CT) Penicillins/[id number] 76(RXNORM) Anaphylaxis, ([place]) 08/08/2011 Unknown [facility] 08/18/2024 Drug Allergy/41 9303933(SN OMED CT) Sulfa (Sulfonamide Antibiotics)/S887964 491(RXNORM) Unknown Reaction Unknown [facility] 08/18/2024 Drug Allergy/41 4042783(SN OMED CT) latex/H940008618(RXN ORM) Anaphylaxis Unknown [facility] 08/18/2024 Drug Allergy/41 4850902(SN OMED CT) baclofen/F238393290( RXNORM) Difficulty Breathing Unknown [facility] 08/18/2024 Drug Allergy/41 7531650(SN OMED CT) sulfamethoxazole/F00 9699728(RXNORM) Hives, ([place]) 08/08/2011 [facility] 08/18/2024 Drug Allergy/41 4680889(SN OMED CT) trimethoprim/F854684 873(RXNORM) Hives, ([place]) 08/08/2011 [facility] 08/18/2024 Drug Allergy/41 2645668(SN OMED CT) fenofibrate/J0560889 89(RXNORM) ([facility]) 08/08/2011 Unknown [facility] 08/18/2024 Drug Allergy/41 2194243(SN OMED CT) levofloxacin/Q975546 299(RXNORM) Swelling of Lip/Tongue/Throat, thrush Unknown [facility] 08/18/2024 Drug Allergy/41 2250863(SN OMED CT) rosuvastatin/U848837 902(RXNORM) Gastrointestinal Upset Unknown [facility] 08/09/2023 DRUG INGREDI/41 2689859(SN OMED CT) BACLOFEN Shortness of breath [facility] 08/09/2023 DRUG INGREDI~En viron/4195 08974(SNOM ED CT) LATEX Shortness of breath [facility] 08/09/2023 Drug Class/4195 54383(SNOM ED CT) SULFA (SULFONAMIDE ANTIBIOTICS) Shortness of breath [facility] 08/09/2023 DRUG INGREDI/41 0306663(SN OMED CT) ROSUVASTATIN [facility] 08/09/2023 DRUG/69152 1003(SNOME D CT) SULFAMETHOXAZOLE-TRI METHOPRIM [facility] 08/09/2023 Drug Class/4195 30926(SNOM ED CT) PENICILLINS Rash [facility] 11/01/2022 DRUG INGREDI/41 7841903(SN OMED CT) TRIMETHOPRIM [facility] 10/04/2022 DRUG INGREDI/41 8648833(SN OMED CT) TOBRAMYCIN Rash [facility] 10/04/2022 DRUG INGREDI~NO N-CBORD/41 1833581(SN OMED CT) TOBRAMYCIN Rash [facility] 09/06/2017 DRUG INGREDI~En viron~NON- CBORD/4195 93037(SNOM ED CT) LATEX Anaphylaxis [facility] 07/10/2017 DRUG INGREDI/41 0692925(SN OMED CT) LEVOFLOXACIN Other~Swelling [facility] 07/10/2017 DRUG INGREDI~NO N-CBORD/41 4806392(SN OMED CT) BACLOFEN Other ( See Comments) [facility] 07/10/2017 DRUG INGREDI~NO N-CBORD/41 7503156(SN OMED CT) LEVOFLOXACIN Other ( See Comments) [facility] 07/10/2017 DRUG INGREDI~NO N-CBORD/41 3886478(SN OMED CT) ROSUVASTATIN Other ( See Comments) [facility] 03/22/2009 DRUG INGREDI/41 8801227(SN OMED CT) FENOFIBRATE (Inactive) GI intolerance [facility] 03/22/2009 DRUG/14483 1003(SNOME D CT) FENOFIBRATE MICRONIZED (Inactive) GI intolerance [facility] 03/22/2009 DRUG~NON-C BORD/19471 1003(SNOME D CT) FENOFIBRATE MICRONIZED [facility] 03/16/2006 Drug Class/4195 57310(SNOM ED CT) LATEX, NATURAL RUBBER Anaphylaxis~Sob High [facility] 03/14/2006 DRUG INGREDI/41 8811487(SN OMED CT) FLUVASTATIN Unknown [facility] 03/14/2006 DRUG INGREDI/41 1473645(SN OMED CT) PHENAZOPYRIDINE Nausea~NandV [facility] 03/14/2006 DRUG INGREDI/41 4940090(SN OMED CT) SIMVASTATIN Unknown [facility] 03/14/2006 Drug Class~NON- CBORD/4195 12463(SNOM ED CT) PENICILLINS [facility] 03/14/2006 DRUG INGREDI~NO N-CBORD/41 3451883(SN OMED CT) PHENAZOPYRIDINE HCL Nausea and Vomiting [facility] 03/14/2006 Drug Class~NON- CBORD/4195 91345(SNOM ED CT) SULFA (SULFONAMIDE ANTIBIOTICS) [facility] /4469029 06(SNOMED CT) Latex 07444326 [facility] /0436958 06(SNOMED CT) rosuvastatin 4986039701 [facility] /3641757 06(SNOMED CT) penicillins 86004174 [facility] BETTY6373579 06(SNOMED CT) sulfa drugs Hives [facility] BETTY1193505 06(SNOMED CT) tobramycin [facility] BETTY1538712 06(SNOMED CT) baclofen [facility] BETTY2849005 06(SNOMED CT) Unknown [id number] [facility] BETTY6448645 06(SNOMED CT) Levaquin [id number] [facility] ENCOUNTERS ADMIT/DISCHARGE ACCOUNT NUMBER ADMITTING ENCOUNTER CLASS LOCATION SOURCE 06/23/2025/06/23/20 [id number] Ambulatory Building:FBO HO [facility] EPIC 06/16/2025/06/16/20 25 [id number] Ambulatory Building:FNR MR [facility] EPIC 06/02/2025/06/02/20 [id number] Ambulatory Building:FBO [facility] EPIC 05/27/2025/05/27/20 [id number] Ambulatory Building:NOM S NEURO [facility] EPIC 05/15/2025/05/15/20 25 [id number] Ambulatory Building:FBO [facility] EPIC 05/15/2025/05/15/20 25 [id number] Ambulatory Building:O [facility] EPIC 05/08/2025/05/08/20 25 [id number] Ambulatory Building:[facility] 01/30/2025/01/31/20 25 [id number] Ambulatory Buildin [id number] [facility] 01/17/2025/01/18/20 25 [id number] Ambulatory Building:PFM _LAB [facility] 01/09/2025/01/10/20 25 [id number] Ambulatory Building:[facility] 12/31/2024/01/01/20 25 [id number] Ambulatory Buildin [id number] [facility] 12/12/2024/12/13/19 25 [id number] Ambulatory Building:[facility] 11/26/2024/11/26/19 25 [id number] Ambulatory Building:[facility] EPIC 11/26/2024/11/26/19 [id number] Ambulatory Building:FBO RTHO [facility] EPIC 10/11/2024/10/11/19 [id number] Ambulatory Building:PFM _XR [facility] 09/05/2024/09/05/20 24 [id number] Ambulatory Building:DOT [id number] [facility] 08/20/2024/08/22/20 24 [id number] Donis Arroyo [facility] [id number]: 1 [facility] 08/13/2024/08/13/20 24 [id number] Ambulatory Building:DOT [id number] [facility] 08/05/2024/08/05/20 24 [id number] Ambulatory [place] : Exam 3 [facility] 04/14/2019 [id number] Ambulatory CD:[id number] 3Building:CD :[id number] [facility] PAYERS ENCOUNTER GUARANTOR PAYER SUBSCRIBER SOURCE 06/23/2025 JOSE ALBERTO SALEEMDOB: [facility] [place] [address]Cek: (HP) Primary Insurance:BCBSPolic y Number: [id number] ve Date:2022-10-01 JOSE ALBERTO SALEEMDOB: [id number] [facility] [place] [address] [facility] EPIC 06/16/2025 JOSE ALBERTO SALEEMDOB: [place] [address]Yrk: (HP) Primary Insurance:BCBSPolic y Number: [id number] ve Date:2022-10-01 JOSE ALBERTO SALEEMDOB: [id number] [place] [address] [facility] EPIC 06/02/2025 JOSE ALBERTO [place]EMDOB: [place] [address]Bop: (HP) Primary Insurance:BCBSPolic y Number: [id number] ve Date:2022-10-01 JOSE ALBERTO Vann RIGGSDOB: [id number] [place] [address] [facility] EPIC 05/27/2025 JOSE ALBERTO Vann RIGGSDOB: [place] [address]Kcs: (HP) Primary Insurance:BCBSPolic y Number: [id number] ve Date:2022-10-01 JOSE ALBERTO Vann RIGGSDOB: [id number] [place] [address] [facility] EPIC 05/15/2025 JOSE ALBERTO BRADYGSDOB: [place] [address]Lhy: (HP) Primary Insurance:BCBSPolic y Number: [id number] ve Date:2022-10-01 JOSE ALBERTO BRADYGSDOB: [id number] [place] [address] [facility] EPIC 05/15/2025 JOSE ALBERTO BRADYGSDOB: [place] [address]Rmt: (HP) Primary Insurance:BCBSPolic y Number: [id number] ve Date:2022-10-01 JOSE ALBERTO BRADYGSDOB: [id number] [place] [address] [facility] EPIC 05/08/2025 Primary Insurance:LALITA ASTUDILLO MONTA[place]Policy Number: [id number] ve Date:2022-10-01 JOSE ALBERTO SALEEMDOB: [id number] [place] [address] [facility] 01/30/2025 Primary Insurance:LALITA ASTUDILLO MON[place]Policy Number: [id number] ve Date:2022-10-01 JOSE ALBERTO VIVAS: [id number] [place] [address] [facility] 01/17/2025 JOSE ALBERTO QUINTANILLAB: [place] [address]Hrc: (HP) Primary Insurance:BLUE ACCESS (PPO)Policy Number: [id number] ve Date:2022-10-01 JOSE ALBERTO QUINTANILLAB: [id number] [place] [address]Daq: (HP) () [facility] 01/09/2025 Primary Insurance:LALITA ADALBERTO MON[place]Policy Number: [id number] ve Date:2022-10-01 JOSE ALBERTO QUINTANILLAB: [id number] [place] [address] [facility] 12/31/2024 Primary Insurance:LALITA ASTUDILLO MON[place]Policy Number: [id number] ve Date:2022-10-01 JOSE ALBERTO QUINTANILLAB: [id number] [place] [address] [facility] 12/12/2024 Primary Insurance:LALITA ASTUDILLO MON[place]Policy Number: [id number] ve Date:2022-10-01 JOSE ALBERTO QUINTANILLAB: [id number] [place] [address] [facility] 11/26/2024 JOSE ALBERTO QUINTANILLAB: [place] [address]Rxh: (HP) Primary Insurance:[facility] Hospitalic y Number: [id number] ve Date:2022-10-01 JOSE ALBERTO QUINTANILLAB: [id number] [place] [address] [facility] 11/26/2024 JOSE ALBERTO QUINTANILLAB: [place] [address]Svz: (HP) Primary Insurance:BCBSPolic y Number: [id number] ve Date:2022-10-01 JOSE ALBERTODORA SALEEMDOB: [id number] [place] [address] [facility] 10/11/2024 JOSE ALBERTODORA QUINTANILLAB: [place] [address]Kmo: (HP) Primary Insurance:BLUE ACCESS (PPO)Policy Number: [id number] ve Date:2022-10-01 JOSE ALBERTO QUINTANILLAB: [id number] [place], [place] [address]Pam: (HP) () [facility] 09/05/2024 JOSE ALBERTODORA QUINTANILLAB: [place] [address]Pli: (HP) Primary Insurance:ANTHEMPol icy Number: [id number] ve Date:2022-10-01 JOSE ALBERTODORA VIVAS: [id number] [place], [place] [address]Ujb: (HP) [facility] 08/20/2024 [place] [address]Lul: (HP) Primary Insurance:Tow BC/BSPolicy Number: [id number] ve Date:2024-08-18 Jose Alberto QuintanillaB: [id number] [place] [address]Azx: (HP) [facility] 08/20/2024 Secondary Insurance:Self PayPolicy Number: Effective Date:2024-08-18 [facility] 08/13/2024 JOSE ALBERTO QUINTANILLAB: [place], [place] [address]Mca: () Primary Insurance:ANTHEMPol icy Number: [id number] ve Date:2022-10-01 JOSE ALBERTO SOCORROB: [id number] [place] [address]Pxa: () [facility] 08/05/2024 JOSE ALBERTO QUINTANILLAB: RE CTTel: [phone]~~[phone] () Primary Insurance:AnthemPol icy Number: [id number] ve Date:8453-70-00[address], [place] [address]GU: [facility] 04/14/2019 JOSE ALBERTO VIVAS: RE CTTel: () Primary Insurance:AnthemPol icy Number: [id number] ve Date:9373-14-19[address]EqtszcuMARQUIS Miller [address]XU: [facility]
--- OUTSIDE RECORDS SUMMARY | 2025-07-01 16:37 | XMS_ITS | Encounter Summary ---
Author Organization [employer] [facility] [employer] Address [id number] [address] [place] [address] Care Team Providers Care Senior Asp Net Developer Name Role Phone Ziggy Dejesus MD Primary Care Provider [phone] Encounter Details Date Type Department Care Team (Late st Contact Info) Description 02/08/2024 Telephone [facility] N[facility] Th[facility] [address] [place] [address] Devaughn Messer MD PhD [address] [address] RETIRED 04/30/2024 [place] [address] Social History Tobacco Use Types [...] as of this encounter Care Teams Senior Asp Net Developer Relationship Specialty Start Date End Date Ziggy Dejesus MD PCP - General 02/22/17 documented as of this encounter
--- OUTSIDE RECORDS SUMMARY | 2025-07-01 16:37 | XMS_ITS | Clinical Summary ---
Author Organization [facility] Address [id number] [address] [place] [address] Care Team Providers Care Bleach Boiler Filler Name Role Phone Ziggy Dejesus MD Primary Care Provider [phone] Allergies Active Allergy Reactions Criticality Noted Date [...] (20 mg total) before bedtime. Active sod bkmjz-melgew-ghulr z bottle (NEILMED SINUS RINSE COMPLETE) packet [...] (three) times a day with meals. Active slkokwee-tqge-DC-c alcium &mins (THERAGRAN-M) 9 mg iron-400 mcg [...] 16 g 11 02/14/20 24 Active vit C,Y-Qs-xsweb-lutei n-zeaxan (PRESERVISION AREDS-2) 250-90-40-1 mg capsule Take [...] 02/29/2024 11:15 AM EDT Plan of Treatment Health Maintenance Due Date Last Done Comments Depression Screening 1976 DTaP,Tdap and Td Vaccines (1 - Tdap) 1983 Pap Smear 02/07/2025 02/07/2022, 01/29, 08/19/2019 Adult BMI Screening 02/28/2025 02/29/2024 Tobacco Screening 03/06/2025 03/06/2024 COVID-19 Vaccine ( - 2024-2 6 season) 2025 08/01/2021, 01/29/2021, 01/08/2021 Influenza Vaccine 06/01/2025 06/05/2024, , 06/16/2022, Additional history exists Zoster (Shingles) Vaccine Completed 08/21/2022, Medical Devices Implanted Type Area Child Day Care Provider Device Identifier Shelf Expiration Date Model / Serial / Lot Tissue Alloderm Nonmesh 2x4cm - Sna - [id number] Implanted:Qty : 1 on 09/06/2017 by Devaughn Messer MD PhD at [facility] Graft Nose [employer] 03/20/2018 [id number] / NA / [id number] Lens Iol Ultrasert 17.0d - [id number] - [id number] Implanted:Qty : 1 on 11/14/2018 by Nisha Stoll MD at [facility] Lens Left: Eye [employer] 09/30/2020 [id number] 17.0 / [id number] / NA Sinus Implant Propel Mini - Sna - [id number] Implanted:Qty : 1 on 01/03/2018 by Devaughn Messer MD PhD at [facility] Other Implant Nose [employer] 03/06/2018 35596 / NA / [id number] Sinus Implant [place] - Sna - [id number] Implanted:Qty : 2 on 01/03/2018 by Devaughn Messer MD PhD at [facility] Stent Bilatera l: Nose [employer] 02/15/2018 55562 / NA / [id number] Acrysofiq Restor Implanted:Qty : 1 on 11/05/2018 by Nisha Stoll MD at [facility] Right: Eye [employer] 11/29/2019 [id number] / [id number] / NA Insurance [facility] Care Teams Bleach Boiler Filler Relationship Specialty Start Date End Date Ziggy Dejesus MD PCP - General 02/22/17
--- OUTSIDE RECORDS SUMMARY | 2025-07-01 16:37 | XMS_ITS | Encounter Summary ---
Author Organization [facility] Address [address] [facility] [place] [address] Care Team Providers Care School Psychology Professor Name Role Phone Ziggy Dejesus MD Primary Care Provider [phone] Encounter Details Date Type Department Care Team (Late st Contact Info) Description 06/23/2025 Bamboo flowsheet [facility] [address] [place] [address] Jr. Torsten Sinha, DO [address] [facility] [address] [place] [address] Social History Tobacco Use Types Packs/Day Years [...] Info) Description 07/14/2025 5:00 PM EDT Evaluation [facility] Advanced [facility] [address] [place] [address] Kayode Francois, PT [address] [place], [place] [id number] 08/04/2025 10:45 AM EST Office Visit [facility] [address] [place] [address] Jr. Torsten Sinha, [address] [address] documented as of this encounter Visit Diagnoses Not on filedocumented in this encounter Care Teams School Psychology Professor Relationship Specialty Start Date End Date Ziggy Dejesus MD [address] [place] [address] PCP - General Family Medicine 02/13/25 documented as of this encounter
--- OUTSIDE RECORDS SUMMARY | 2025-07-01 16:37 | XMS_ITS | Encounter Summary ---
Author Organization [facility] Address [address] [place] [address] Care Team Providers Care Business Systems Manager Name Role Phone Ziggy Dejesus MD Primary Care Provider [phone] Encounter Details Date Type Department Care Team (Latest Contact Info) Description 06/23/2025 Travel Social History Tobacco Use Types Packs/Day Years [...] Info) Description 07/14/2025 5:00 PM EDT Evaluation [facility] [address] [place] [address] Kayode Francois, PT [address] [place], [place] [id number] 08/04/2025 10:45 AM EST Office Visit [facility] [address] [place] [address] Jr. Torsten Sinha, DO [address] [facility] [address] [place] [address] documented as of this encounter Visit Diagnoses Not on filedocumented in this encounter Care Teams Business Systems Manager Relationship Specialty Start Date End Date Ziggy Dejesus MD [address] [place] [address] PCP - General Family Medicine 02/13/25 documented as of this encounter
--- OUTSIDE RECORDS SUMMARY | 2025-07-01 16:37 | XMS_ITS | Encounter Summary ---
Author Organization [employer] [facility] [employer] Address [id number] [address] [place] [address] Care Team Providers Care Stencil Cutter Machine Name Role Phone Ziggy Dejesus MD Primary Care Provider [phone] Reason for Visit * Reason Comments Med Refill Encounter Details Date Type Department Care Team (Late st Contact Info) Description 01/31/2024 Refill [facility] Th[facility] [address] [place] [address] Antonia Banda, PA-C [address] [facility] [address] [place] [address] Xerostomia Social History Tobacco Use Types Packs/Day [...] as of this encounter Plan of Treatment Not on file documented as of this encounter Visit Diagnoses Diagnosis Xerostomia Disturbance of salivary secretion documented in this encounter Additional Health Concerns Assessment Noted Time PHQ-9 Depression Total Score: 0 10/13/19 21 3:43 PM EST documented as of this encounter Care Teams Stencil Cutter Machine Relationship Specialty Start Date End Date Ziggy Dejesus MD PCP - General 02/22/17 documented as of this encounter
--- OUTSIDE RECORDS SUMMARY | 2025-07-01 16:38 | XMS_ITS | Encounter Summary ---
Author Organization [facility] Address [address] [place] [address] Care Team Providers Care Commodity Trader Name Role Phone Unavailable Primary Care Provider Unavailabl e Reason for Visit * Reason Onset Date Comments Outside Medical Records Request 06/18/2025 Encounter Details Date Type Department Care Team (Late st Contact Info) Description 06/18/2025 Telephone [facility] Yael [address] [place] [address] [place] [address] Mirian Pitts Outside Medical Records Request Social History Tobacco Use Types Packs/Day Years Used Date Smoking Tobacco: Never Assessed Comments Unknown Sex and Gender Information Value Date Recorded Sex Assigned at Not on file Legal Sex Female 2:50 PM EST Gender Identity Not on file Sexual Orientation Not on file documented as of this encounter Miscellaneous Notes * Telephone Encounter - Mirian Pitts - 06/26/2025 8:58 AM EDT OUTSIDE RECORDS RECEIVED FROM REFERRING OFFICE SENT TO [facility] TO SCAN TO CHART - FOREST ECONOMIST * Telephone Encounter - Mirian Pitts - 06/18/2025 1:09 PM EDT [facility] records requested for upcoming appt. Fax sent to LUCY KIMBLE MD Requested:[phone] Most recent PCP or GI note MOST RECENT EDG/COLON MOST RECENT GI or Hepatology Pathology MOST RECENT LABS IF AVAILABLE PLEASE INCLUDE ANY PROCEDURE REPORTS AND IMAGING INCLUDING RUQ, CTAP, EUS ,ERCP, ESOPHAGRAM, GASTRIC EMPTYING SCAN. Please send electronic copy of images to [facility] Tara documented in this encounter Plan of Treatment Upcoming Encounters Date Type Department Care Team (Late st Contact Info) Description 07/31/2025 3:00 PM EDT Office Visit [facility] Yael [address] [place] [address] [place] [address] Ramiro Britton MD [address] [place] [address] documented as of this encounter Visit Diagnoses Not on filedocumented in this encounter
--- OUTSIDE RECORDS SUMMARY | 2025-07-01 16:38 | XMS_ITS | Encounter Summary ---
Author Organization [facility] Address [address] [place] [address] Phone Care Team Providers Care Steamfitter Supervisor Name Role Phone Ziggy Dejesus MD Primary Care Provider [phone] Anita Hammonds RN Unavailable Unavailable Encounter Details Date Type Department Care Team (Late st Contact Info) Description 08/18/2024 Scanned Document [facility] [address] [place] [address] Scanning, Generic Provider Social History [...] Care Team (Late st Contact Info) Description 08/18/2025 11:20 AM EST Office Visit [facility] [address] [facility] [address] [place] [address] Celso Garibay DO [address] [facility] [address] [place] [address] documented as of this encounter Procedures Procedure Name Priority Date/Time Associated Diagnosis Comments OUTSIDE IMAGING SCAN 08/18/2024 documented in this encounter Results * OUTSIDE IMAGING SCAN (08/18/2024) Anatomical Region Laterality Modality Other Narrative 08/18/2024 Ordered by an unspecified provider. us Generic Provider Scanning OUTSIDE SCAN Final Result documented in this encounter Visit Diagnoses Not on filedocumented in this encounter Care Teams Steamfitter Supervisor Relationship Specialty Start Date End Date Ziggy Dejesus MD [address] [place] [address] PCP - General 08/17/21 Anita Hammonds, oil and gas exploration technicianGreenhouse Specialist 08/22/24 10/03/24 documented as of this encounter
--- OUTSIDE RECORDS SUMMARY | 2025-07-01 16:38 | XMS_ITS | Clinical Summary ---
Author Organization [facility] Address [address] [place] [address] Care Team Providers Care Dispatcher Service Chief Name Role Phone Ziggy Dejesus MD Primary Care Provider [phone] Allergies Active Allergy Reactions Criticality Noted Date [...] 200 MG tablet Take by mouth Active hydroCHLOROthia zide (HYDRODiuril) 12.5 MG tablet Take 12.5 mg by mouth in the morning. 1/2 tab. Active clopidogrel (Plavix) 75 MG tablet Take by mouth Daily Active Active Problems No known active problems Encounters Date Type Department Care Team Description 06/23/2025 10:15 AM EDT Office Visit [facility] Orthopaedics [address] [place] [address] Jr. Torsten Sinha, DO Tendonitis of wrist, right; Right wrist pain 06/23/2025 Bamboo flowsheet [facility] Orthopa[facility] [place] [address] Jr. Torsten Sinha, DO 06/23/2025 Travel 06/16/2025 9:15 AM EDT Ancillary Procedure [facility] Imaging [address] [facility] [address] [place] [address] Chronic pain of right wrist 06/16/2025 Travel 06/15/2025 Travel 06/02/2025 10:15 AM EDT Office Visit [facility] Orthopa[facility]ics [facility] [place] [address] Jr. Torsten Sinha, Chronic pain of right wrist 06/02/2025 Bamboo flowsheet [facility] [place] [address] Jr. Torsten Sinha, DO 06/02/2025 Travel 05/27/2025 3:15 PM EDT Procedure Visit [facility] Neurology [address] [facility] [address] [place] [phone] Corbin Louie MD Numbness (Primary Dx); Paresthesias; Carpal tunnel syndrome, left 05/27/2025 Travel 05/15/2025 11:55 AM EDT Ancillary Procedure [facility] Orthopaedics [facility] [place] [address] 05/15/2025 11:30 AM EDT Office Visit [facility] [address] [place] [address] Arik Byrd PA Right wrist pain (Primary Dx); Arm weakness; Numbness; Arm pain, right; Ulnar neuropathy of right upper extremity 05/15/2025 Bamboo flowsheet [facility] [address] [place] [address] Arik Byrd PA 05/15/2025 Travel from Last 3 Months Family History Medical History Relation Name Comments [...] - Inhaled Oxygen Concentration - - Weight 78.9 kg (174 lb) 05/15/2025 11:45 AM EDT Height 160 cm (5' 3 ) 05/15/2025 11:45 AM EDT Body Mass Index 30.82 05/15/2025 11:45 AM EDT Plan of Treatment Upcoming Encounters Date Type Department Care Team (Late st Contact Info) Description 07/14/2025 5:00 PM EDT Evaluation [facility] [address] [place] [address] Kayode Francois, PT [address] [place] [address] 08/04/2025 10:45 AM EST Office Visit [facility] [address] [place] [address] Jr. Torsten Sinha C, DO [address] [facility] [address] [place] [address] Health Maintenance Due Date Last Done Comments CT Colonography 1964 Colonoscopy 1964 Colorectal Cancer Screening 1964 FIT-DNA 1964 FIT 1964 FOBT 1964 Sigmoidoscopy 1964 Mammogram 08/15/2024 08/15/2023, 07/02, 10/28/2020, Additional history exists Pap Smear 02/07/2025 02/07/2022, 02/07/2022, 08/01 Influenza Vaccine (#1) 2025 , 06/05/2023, 06/16/2022, Additional history exists Cervical Cancer Screening 02/07/2027 HPV/Cotest 02/07/2027 02/07/2022, 02/07/2022, 08/01 Procedures Procedure Name Priority Date/Time Associated Diagnosis Comments MR WRIST RIGHT WO IV CONTRAST Routine 06/16/2025 9:59 AM EDT Chronic pain of right wrist XR WRIST 1-2 VIEWS RIGHT Routine 05/15/2025 11:53 AM EDT Right wrist pain from Last 3 Months Results * MR wrist right wo IV contrast (06/16/2025 9:59 AM EDT) Anatomical Region Laterality Modality Upper Extremities, Wrist Right Magneti c Resonance 06/16/2025 3:51 PM EDT Impressions 06/16/2025 3:55 PM EDT No acute osseous findings. Degenerative changes as discussed. ELECTRONICALLY SIGNED BY: Wilder Arango MD Narrative 06/16/2025 3:55 PM EDT EXAM/TECHNIQUE: MR WRIST RIGHT WO IV CONTRAST HISTORY: Lifting injury. Numbness [...] of synovitis. OTHER: No other significant abnormality. Procedure Note Wilder Arango MD - 06/16/2025 EXAM/TECHNIQUE: MR WRIST RIGHT WO IV CONTRAST HISTORY: Lifting injury. Numbness in fingers. History of prior carpaltunnel surgery. COMPARISON: Radiographs 05/15/2025. RESULT: Limitations from motion. BONE MARROW: Small amount of bone marrow edema involving the distal radiusat the distal radioulnar joint, likely degenerative in etiology.Additional areas of subchondral edema within the wrist, likelydegenerative. No evidence for recent fracture. Negative ulnar variance. LIGAMENTS: The scapholunate ligament and lunotriquetral ligament appear yung grossly intact. TRIANGULAR FIBROCARTILAGE COMPLEX (TFCC): Grossly intact within limits ofmotion. CARTILAGE: Degenerative changes throughout the wrist especially of thedistal radioulnar joint and thumb CMC joint, grossly similar to priorradiographs. TENDONS: The flexor and extensor tendons are grossly intact. NERVES: The visualized portions of the median and ulnar nerves appear yung within normal limits. Changes from prior carpal tunnel surgery. JOINT FLUID AND SYNOVIUM: There is a physiological quantity of jointfluid. No evidence of synovitis. OTHER: No other significant abnormality. IMPRESSION: No acute osseous findings. Degenerative changes as discussed. ELECTRONICALLY SIGNED BY: Wilder Arango MD us Jr. Torsten Sinha DO IMG MRI PROCEDURES Jen morales Result * XR wrist 1 or 2 views right (05/15/2025 11:53 AM EDT) Anatomical Region Laterality Modality Upper Extremities, Wrist Right Radiogr aphic Imaging Narrative 05/15/2025 9:57 PM EDT Image result: AP and Lateral Right Wrist: Bone Structure: No acute fracture or dislocation Joint Spaces: The carpal joint spaces are well preserved, minimal joint space narrowing mostly radial with subchondral sclerosis. Scapho-lunate interval within normal limit. Soft tissue: No swelling or calcification Impression: No acute bony process Right Wrist with minimal degenerative changes. us Arik RINALDI IMG XR PROCEDURES Final Resul t from Last 3 Months Insurance BCBS Care Teams Dispatcher Service Chief Relationship Specialty Start Date End Date Ziggy Dejesus MD [address] [place] [address] PCP - General Family Medicine 02/13/25
--- OUTSIDE RECORDS SUMMARY | 2025-07-01 16:38 | XMS_ITS | Encounter Summary ---
Author Organization [facility] Address [address] [place] [address] Phone Care Team Providers Care Market Research Specialist Name Role Phone Ziggy Dejesus MD Primary Care Provider [phone] Cindy Stoll HEEL REDUCER-DEVOPS Unavailable [phone] Anita Hammonds RN Unavailable Unavailable Encounter Details Date Type Department Care Team (Late st Contact Info) Description 09/28/2021 Orders Only [facility] [address] [place] [address] Conversion, Onbase Social History Tobacco Use Types [...] Description 08/18/2025 11:20 AM EST Office Visit [facility] [address] [facility] [address] [place] [phone] Celso Garibay DO [address] [facility] [address] [place] [address] Scheduled Orders Name Type Priority Associated Diagnoses Orde r Schedule OUTSIDE LAB SCAN Lab Ordered: 09/28/2021 documented as of this encounter Visit Diagnoses Not on filedocumented in this encounter Care Teams Market Research Specialist Relationship Specialty Start Date End Date Ziggy Dejesus MD [address] [place] [address] PCP - General 08/17/21 Cindy Stoll, HEEL REDUCER-DEVOPS [address] [facility] 2, [facility] [address] [place] [address] PCP - Karen LANEO PCP 01/29/22 06/30/22 Anita Hammonds, division sergeantManager Child 08/22/24 10/03/24 documented as of this encounter
--- OUTSIDE RECORDS SUMMARY | 2025-07-01 16:38 | XMS_ITS | Clinical Summary ---
Author Organization [facility] Address [address] [facility], [address] [place] [address] Care Team Providers Care Tire Setter Name Role Phone Ziggy Dejesus MD Primary Care Provider [phone] Allergies Active Allergy Reactions Criticality Noted Date [...] Description 11/03/2025 4:15 PM EST Office Visit [facility]OLOGY Part of [address] [place], [place] [phone] Gaby Murry, DO [address] [place] [address] Annual Health Maintenance Due Date Last Done Comments Lipids 1974 HIV screen 1979 Hepatitis C screen 1982 DTaP/Tdap/Td vaccine (1 - Tdap) 1983 Diabetes screen 1999 Colonoscopy 2009 Colorectal Cancer Screen 2009 FIT/FOBT: Average risk 2009 Fecal-DNA (Cologuard): Average risk 2009 Sigmoidoscopy/CT colonography 2009 Pneumococcal 50+ years Vaccine (2 of 2 - PCV) 05/09/2018 05/09/2017 Respiratory Syncytial Virus (RSV) or age 60 yrs+ (1 - Risk 60-74 years 1-dose series) 2024 Pap smear 02/07/2025 02/07/2022, 08/19/2019 Flu vaccine (#1) 05/01/2025 06/05/2023, , 2022, Additional history exists COVID-19 Vaccine (4 - season) 2025 08/01/2021, 01/29/2021, 01/08/2021 Breast cancer screen 08/15/2025 08/15/2023, 07/24/2022, 07/28/2021, Additional history exists Depression Screen 10/28/2025 10/28/2024, 10/28/2024 Cervical cancer screen 02/07/2027 HPV (without or with Pap) 02/07/2027 02/07/2022, Pneumococcal 0-49 years Vaccine Discontinued 05/09/2017 Shingles [...] HIGH RISK Routine 02/07/2022 8:18 AM EDT LUMBER STACKER DRIVER CYTOLOGY Routine 02/07/2022 8:18 AM EDT HM MAMMOGRAPHY Routine 07/28/2021 from Last 3 Months or Most Recently Relevant to Health Maintenance Results * Human papillomavirus (HPV) DNA probe thin prep high risk (02/07/2022 8:18 AM EDT) Specimen Description .GENITAL - NOT SPECIFIED 02/07/2022 8:18 AM EDT Veracode HPV Sample .THIN PREP 02/07/2022 8:18 AM EDT Veracode HPV, Genotype 16 Not Detected Not Detected 02/07/2022 8:18 AM EDT Veracode HPV, Genotype 18 Not Detected Not Detected 02/07/2022 8:18 AM EDT Veracode HPV, High Risk Other Not Detected Not Detected 02/07/2022 8:18 AM EDT Veracode HPV, Interpretation 02/07/2022 8:18 AM EDT [facility] Comment: This test amplifies and detects DNA [...] Gaby Murry DO HEMATOLOGY ORDERABLES Final Result [facility] [address] [place] [address], [facility] [phone] [facility] [address] [place] [address], [facility] [phone] * LUMBER STACKER DRIVER Cytology (02/07/2022 8:18 AM EDT) Cytology Report INTERPRETATION Cervical material, (ThinPrep vial, Imaging-assisted review): Specimen Adequacy: Satisfactory for evaluation. -Endocervical/tra nsformation zone component is absent. Descriptive Diagnosis: Negative for intraepithelial lesion or malignancy. Meal Cooker: TERESE BECERRA(ASCP) Electronically Signed Out terese/02/10/2022 Procedure/Addendum HPV [...] Imaging-assisted review) Clinical History Postmenopausal Z01.419 Routine battery tester exam without abnormal findings Co-Test: ThinPrep Pap with high risk HPV testing LMP: 05/19/2016 GYNECOLOGIC CYTOLOGY REPORT Patient Name: JOSE ALBERTO SALEEM. [facility] Rec: [id number] Path Number: [id number] [facility] CONSULTING PATHOLOGISTS [facility] EMERGENCY DEPARTMENT ANATOMIC PATHOLOGY [address] [place] [phone] [facility] CERVICAL MATERIAL 02/07/2022 8:18 AM EDT 02/08/2022 8:18 AM EDT Gaby Murry DO PATHOLOGY/CYTOLOGY OR DERABLES Final Result Performing Organization Address City/State/[facility] Co de Phone Number [facility] [address] [place] [address], [facility] [phone] [address], [facility] [phone] * MAMMOGRAPHY (07/28/2021) Anatomical Region Laterality Modality Other Gaby Murry DO HEALTH MAINTENANCE Fi nal Result from Last 3 Months or Most Recently Relevant to Health Maintenance Insurance BCBS OUT OF STATE Advance Directives * Full Code (Latest Code Status on File) Date Activated Date Inactivated Comments 06/18/2023 1:21 PM 06/18/2023 5:57 PM Care Teams Tire Setter Relationship Specialty Start Date End Date Ziggy Dejesus MD [address] [place] [address] PCP - General Family Medicine 08/19/19
--- OUTSIDE RECORDS SUMMARY | 2025-07-01 16:38 | XMS_ITS | Clinical Summary ---
Author Organization [facility] Address [address] 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 pectoris,S/P PTCA (percutaneous transluminal [...] :Atherosclerosis of coronary artery bypass graft of [place] heart without angina pectoris TAKE 1 TABLET BY MOUTH DAILY 90 tablet 3 5 Active Active Problems Problem Noted Date Diagnosed Date Statin intolerance 09/05/2024 BMI 30.0-30.9,adult 09/05/2024 S/P PTCA (percutaneous transluminal coronary ang ioplasty) 09/05/2024 Pancreatitis ([facility]) 08/13/2024 Atherosclerosis of coronary artery of [place] heart without angina pectoris 08/09/2023 Essential hypertension [...] Description 08/18/2025 11:20 AM EST Office Visit [facility] [address] [facility] [address] [place] [address] Celso Garibay, [address] [facility] [address] [place] [address] Health Maintenance Due Date Last Done Comments [...] 02/13/2023 , 02/07/2022, 02/07/2022, Additional history exists RSV High Risk: (Elderly (60+) or Population) (1 - Risk 60-74 years 1-dose series) 2024 Mammogram 08/15/2024 08/15/2023, 07/02, 10/28/2020 Cervical Cancer Screening 02/07/2025 Pap Smear 02/07/2025 02/07/2022, 02/07/2022 COVID-19 Vaccine ( season) 2025 08/01/2021, 01/29/2021, 01/08/2021 Influenza Vaccine (#1) 2025 , 06/05/2023, 06/16/2022, [...] age to complete this topic Insurance [facility] Care Teams Gwot Ia/Ilo Intelligence Support Relationship Specialty Start Date End Date Ziggy Dejesus MD [address] [place] [address] PCP - General 08/17/21
--- OUTSIDE RECORDS SUMMARY | 2025-07-01 16:38 | XMS_ITS | Encounter Summary ---
Author Organization [facility] Address [address] [place] [address] Phone Care Team Providers Care Restoration Officer Name Role Phone Ziggy Dejesus MD Primary Care Provider [phone] Anita Hammonds RN Unavailable Unavailable Encounter Details Date Type Department Care Team (Late st Contact Info) Description 10/09/2022 Orders Only [facility] [address] [place] [address] Conversion, Onbase Social History Tobacco Use Types [...] Description 08/18/2025 11:20 AM EST Office Visit [facility] [address] [facility] [address] [place] [address] Celso Garibay DO [address] [facility] [address] [place] [address] Scheduled Orders Name Type Priority Associated Diagnoses Orde r Schedule OUTSIDE LAB SCAN Lab Ordered: 10/09/2022 documented as of this encounter Visit Diagnoses Not on filedocumented in this encounter Care Teams Restoration Officer Relationship Specialty Start Date End Date Ziggy Dejesus MD [address] [place] [address] PCP - General 08/17/21 Anita Hammonds, college professorOptometric Coordinator 08/22/24 10/03/24 documented as of this encounter
--- OUTSIDE RECORDS SUMMARY | 2025-07-01 16:38 | XMS_ITS | Clinical Summary ---
Author Organization [facility] Address [address] [place] [address] Care Team Providers Care Middle School Counselor Name Role Phone Ziggy Dejesus MD Primary Care Provider [phone] Allergies Active Allergy Reactions Criticality Noted Date Comments Baclofen Anaphylaxis,Other,S hortness of breath High 07/10/2017 bradypnea Fenofibrate GI intolerance 03/22/2009 Other reaction(s): (Oluis) 08/08/2011 Other reaction(s): Intolerance elevated liver enzymes [...] traMADol (Ultram) 50 mg tablet 5 Active casanthranol/docus ate sodium (STOOL SOFTENER PLUS LAXATIVE ORAL) Take by mouth. DIGESTSYNC is what she is taking OTC Active fluticasone (Flonase) 50 mcg/actuation nasal spray INSTILL 1 SPRAY IN EACH NOSTIRL TWICE A DAY. for 90 Active HYDROcodone-acetam inophen ([place]) 5-325 mg tablet 5 Active hyoscyamine (Anaspaz,Levsin) 0.125 mg tablet 2 tablet as needed Orally every 4 hrs PRN abd pain 4 Active ondansetron ODT (Zofran-ODT) 4 mg disintegrating tablet 5 Active hydroCHLOROthiazid e (HYDRODiuril) 25 mg tablet 5 Active pancrelipase, Snp-Dlkz-Mkab, (Creon) 12,000-38,000 -60,000 unit capsuleIndications :Pancreatic insufficiency 1 capsule before snack. 90 capsule 5 Active pancrelipase, Ejv-Nobj-Udhc, (Creon) 36,000-114,000- 180,000 unit capsule,delayed release(DR/EC) capsuleIndications :Pancreatic insufficiency Take 1 capsule by mouth with breakfast, with lunch, and with evening meal. Take 1 capsule before each meal 270 capsule 025 Active Active Problems Problem Noted Date Diagnosed Date BMI 30.0-30.9,adult 09/05/2024 S/P PTCA (percutaneous transluminal coronary ang ioplasty) 09/05/2024 Statin intolerance 09/05/2024 Angina pectoris 02/26/2024 Overview (02/26/2024): non for 4 yrs Cellulitis of right foot due to methicillin-resistant Staphylococcus aureus 02/26/2024 Overview (02/26/2024): nare after surgery Hypercholesterolemia 02/26/2024 Peripheral edema 02/26/2024 Xerostomia 02/26/2024 Atherosclerosis of coronary artery of [place] heart without angina pectoris 08/09/2023 Essential hypertension, [...] Encounters Date Type Department Care Team Description 05/19/2025 Telephone [facility] Endoscopy [address] [place] [phone] Gisela Arellano, LUCIEN 05/19/2025 Orders Only [facility] G[facility] [address] [place] [address] [place] [phone] Roberto Watson MD Pancreatic insufficiency 05/14/2025 Telephone [facility] G[facility]enterology [address] [place] [address] Nicole Locke MA 05/14/2025 Refill [facility] [address] [place] [address] Nicole Locke MA 05/14/2025 Telephone [facility] [address] [place] [address] [place] [phone] Roberto Watson MD 05/14/2025 Telephone [facility] [address] [place] [address] [place] [address] Gisela Arellano RN 05/08/2025 10:30 AM EDT Follow-Up [facility] [address] [place] [address] Chauncey Cooper MD Pancreatic insufficiency (Primary Dx); Sphincter of Oddi dysfunction from Last 3 Months Immunizations Immunization Administration Dates Next Due Influenza, High Dose Seasona l, Preservative Free 2022 Influenza, Unspecified 06/30/2021 Influenza, injectable, MDCK, preservative free, quadrivalent 06/03/2021,07/26/2017 Influenza, injectable, quadr ivalent, preservative free 06/05/2023,06/16/2022,2020,07/23 Influenza, seasonal, injectable 06/15/2014 Influenza, seasonal, injecta ble, preservative free, 6 moonths & older 06/05/2024,07/03/2015 Novel ineepdvix-[id number], preservative-free 07/29/2009 Pfizer SARS-CoV-2 Vaccination 01/08/2021 Pneumococcal Polysaccharide PPV23 05/09/2017 Zoster, Recombinant 08/21/2022,06/16/2022 Family History Medical History Relation Name Comments Hyperlipidemia Brother 1 [place] Heart attack Brother 2 Ray Hyperlipidemia Father Munoz Hyperlipidemia Mother Katharlatonia Relation Name Status Comments Brother 1 [place] Brother 2 Ray Father Munoz Mother Katharyn Social History Tobacco Use Types Packs/Day Years Used Date Smoking Tobacco: Never Passive Smoke Exposure: Never Smokeless Tobacco: Never Tobacco Cessation:Counseling Given: [...] Sign Reading Time Taken Comments Blood Pressure 129/80 05/08/2025 10:34 AM EDT Pulse 70 05/08/2025 10:34 AM EDT Temperature - - Respiratory Rate 14 05/08/2025 10:34 AM EDT Oxygen Saturation - - Inhaled Oxygen Concentration - - Weight 82.6 kg (182 lb) 05/08/2025 10:34 AM EDT Height 160 cm (5' 3 ) 05/08/2025 10:34 AM EDT Body Mass Index 32.24 05/08/2025 10:34 AM EDT Plan of Treatment Health Maintenance [...] 05/09/2018 05/09/2017 Diabetes: Hemoglobin A1C 05/29/2024 02/27/2024 Pap Smear 02/07/2025 02/07/2022 COVID-19 Vaccine (4 - season) 2025 08/01/2021, 01/29/2021, 01/08/2021 Influenza Vaccine [...] - 6.0 % 02/27/2024 2:02 PM EDT [facility] ([facility]) Estimated Average Glucose 100 mg/dL 02/27/2024 2:02 PM EDT [facility] ([facility] Blood Venous blood specimen / Unknown Venipuncture / Unknown 02/27/2024 12:18 PM EDT 02/27/2024 12:18 PM EDT us Danielle Magallon MD LAB BLOOD ORDERABLES Final Res ult [facility] [place]) [address] [place], [place] [id number] from Last 3 Months or Most Recently Relevant to Health Maintenance Insurance [facility] Care Teams Middle School Counselor Relationship Specialty Start Date End Date Ziggy Dejesus MD [address] [facility] [place] [address] PCP - General 02/18/24
--- OUTSIDE RECORDS SUMMARY | 2025-07-01 16:38 | XMS_ITS | Encounter Summary ---
Author Organization [facility] Address [id number] [address] [place] [address] Care Team Providers Care Mechanism Inspector Name Role Phone Ziggy Dejesus MD Primary Care Provider [phone] Reason for Visit * Reason Comments Med Refill Encounter Details Date Type Department Care Team (Late st Contact Info) Description 01/10/2018 Refill [facility] [address] [place] [address] [place] [phone] Antonia aBnda, PA-C [id number] [facility] [address] [place] [address] S/P nasal septoplasty Social History Tobacco Use [...] status documented in this encounter Care Teams Mechanism Inspector Relationship Specialty Start Date End Date Ziggy Dejesus MD PCP - General 02/22/17 documented as of this encounter
--- OUTSIDE RECORDS SUMMARY | 2025-07-01 16:38 | XMS_ITS | Encounter Summary ---
Author Organization [facility] Address [id number] [address] [place] [address] Care Team Providers Care Sales Training Representative Name Role Phone Ziggy Dejesus MD Primary Care Provider [phone] Reason for Visit * Reason Onset Date Comments Med Refill 09/26/2017 Encounter Details Date Type Department Care Team (Late st Contact Info) Description 09/26/2017 Refill [facility] [address] [place] [address] [place] [phone] Alisia Bazzi RMA Social History Tobacco Use [...] on filedocumented in this encounter Care Teams Sales Training Representative Relationship Specialty Start Date End Date Ziggy Dejesus MD PCP - General 02/22/17 documented as of this encounter
--- OUTSIDE RECORDS SUMMARY | 2025-07-01 16:38 | XMS_ITS | Encounter Summary ---
Author Organization [employer] Sys tem Address [id number] [address] [place] [address] Care Team Providers Care Manager Fund Name Role Phone Ziggy Dejesus MD Primary Care Provider [phone] Encounter Details Date Type Department Care Team (Late st Contact Info) Description 08/17/2022 Orders Only [facility] [address] [place] [phone] Antonia Banda, PA-C [address] [facility] [address] [place] [address] Social History Tobacco Use Types Packs/Day Years [...] documented as of this encounter Care Teams Manager Fund Relationship Specialty Start Date End Date Ziggy Dejesus MD PCP - General 02/22/17 documented as of this encounter
--- OUTSIDE RECORDS SUMMARY | 2025-07-01 16:38 | XMS_ITS | Encounter Summary ---
Author Organization [employer]s [employer] Address [id number] [address] [place] [address] Care Team Providers Care Desk Reporter Name Role Phone Ziggy Dejesus MD Primary Care Provider [phone] Encounter Details Date Type Department Care Team (Late st Contact Info) Description 06/28/2022 Telephone [facility] [address] [place] [address] Jennifer Peng RMA Social History Tobacco Use [...] has had surgery for this with Dr. Messre. I sent in eye drops advisedher to call the office if she did not improve or worsened. documented in this encounter Plan of Treatment Not on file documented as of this encounter Visit Diagnoses Not on filedocumented in this encounter Additional Health Concerns Assessment Noted Time PHQ-9 Depression Total Score: 0 10/13/19 21 3:43 PM EST documented as of this encounter Care Teams Desk Reporter Relationship Specialty Start Date End Date Ziggy Dejesus MD PCP - General 02/22/17 documented as of this encounter
--- OUTSIDE RECORDS SUMMARY | 2025-07-01 16:38 | XMS_ITS | Encounter Summary ---
Author Organization [employer] Sys [employer] Address [facility] [place]-[id number] [address] [place] [address] Care Team Providers Care Drum Sander Offbearer Name Role Phone Ziggy Dejesus MD Primary Care Provider [phone] Reason for Visit * Reason Comments Med Refill Encounter Details Date Type Department Care Team (Late st Contact Info) Description 09/26/2023 Refill [facility] [address] [place] [phone] Antonia Banda, PA-C [address] [facility] [address] [place] [id number] [employer] Social History Tobacco Use Types Packs/Day [...] documented as of this encounter Care Teams Drum Sander Offbearer Relationship Specialty Start Date End Date Ziggy Dejesus MD PCP - General 02/22/17 documented as of this encounter
--- OUTSIDE RECORDS SUMMARY | 2025-07-01 16:38 | XMS_ITS | Clinical Summary ---
Author Organization [facility] Address [address] [place] [address] Care Team Providers Care Terra Cotta Roofer Helper Name Role Phone Ziggy Dejesus MD Primary Care Provider [phone] Allergies Active Allergy Reactions Criticality Noted Date [...] EDT) Triglyceride 1338(H) 30 - 149 mg/dL [facility] Comment: Patient may be at risk for acute pancreatitis due to marked hypertriglyceridemia. Cholesterol, Total 296(H) 100 - 199 mg/dL [facility] HDL Cholesterol 25(L) >55 mg/dL [facility] VLDL Cholesterol Unable to calculate due to increased Triglycerides . See LDL-Chol, Direct. 6 - 40 mg/dL [facility] LDL Cholesterol, Calculated Unable to calculate due to increased Triglycerides . See LDL-Chol, Direct. 60 - 129 mg/dL [facility] Fasting Time 13 hrs [facility] TC:HDL Ratio 11.84(H) 1.00 - 5.00 [facility] LDL:HDL Ratio Unable to calculate 0.50 - 3.55 [facility] Non HDL Cholesterol 271(H) 90 - 159 mg/dL [facility] Blood specimen (specimen) BLOOD SPECIMEN / Unknown 03/22/2009 12:34 PM EDT us Lupe Park MD LABORATORY Final Resul t [facility] [address] [place] [address] * HGB A1C (03/22/2009 12:34 PM EDT) Hemoglobin A1C 5.6 4.0 - 6.0 % [facility] Blood specimen (specimen) BLOOD SPECIMEN / Unknown 03/22/2009 12:34 PM EDT us Lupe Park MD LABORATORY Final Resul t [facility] [address] [place] [address] from Last 3 Months or Most Recently Relevant to Health Maintenance Insurance [employer] Care Teams Terra Cotta Roofer Helper Relationship Specialty Start Date End Date Ziggy Dejesus MD [address] [place] [address] PCP - General 03/15/06
--- OUTSIDE RECORDS SUMMARY | 2025-07-01 16:38 | XMS_ITS | Encounter Summary ---
Author Organization [facility] Address [address] [place] [address] Care Team Providers Care Helicopter Technician Name Role Phone Ziggy Dejesus MD Primary Care Provider [phone] Reason for Visit * Reason Onset Date Comments Med Refill 05/14/2025 Encounter Details Date Type Department Care Team (Late st Contact Info) Description 05/14/2025 Refill [facility] at [address] [phone] Nicole Locke MA Social History Tobacco Use Types Packs/Day Years Used Date Smoking Tobacco: Never Passive Smoke Exposure: Never Smokeless Tobacco: Never Alcohol Use Standard [...] AM EDT documented as of this encounter Plan of Treatment Not on file documented as of this encounter Visit Diagnoses Not on filedocumented in this encounter Care Teams Helicopter Technician Relationship Specialty Start Date End Date Ziggy Dejesus MD [address] [facility] [place] [address] PCP - General 02/18/24 documented as of this encounter
--- OUTSIDE RECORDS SUMMARY | 2025-07-01 16:38 | XMS_ITS | Encounter Summary ---
Author Organization [facility] Address [address] [place] [address] Phone Care Team Providers Care Record Searcher Name Role Phone Ziggy Dejesus MD Primary Care Provider [phone] Anita Hammonds RN Unavailable Unavailable Encounter Details Date Type Department Care Team (Late st Contact Info) Description 08/20/2024 Scanned Document [facility] [address] [place] [address] Scanning, Generic Provider Social History [...] Description 08/18/2025 11:20 AM EST Office Visit [facility] [address] [facility] [address] [place] [address] Celso Garibay DO [address] [facility] [address] [place] [address] documented as of this encounter Visit Diagnoses Not on filedocumented in this encounter Care Teams Record Searcher Relationship Specialty Start Date End Date Ziggy Dejesus MD [address] [place] [address] PCP - General 08/17/21 Anita Hammonds, hris administratorTrash Truck Driver 08/22/24 10/03/24 documented as of this encounter
--- OUTSIDE RECORDS SUMMARY | 2025-07-01 16:38 | XMS_ITS | Clinical Summary ---
Author Organization [facility] Address [address] [place] [address] Care Team Providers Care Senior Inspector Name Role Phone Unavailable Primary Care Provider Unavailabl e Encounters Date Type Department Care Team Description 06/18/2025 Telephone [facility] [place] [address] [place], [place] [phone] Mirian Pitts Outside Medical Records Request from Last 3 Months Social History Tobacco Use Types Packs/Day Years Used Date Smoking Tobacco: Never Assessed Comments Unknown Sex and Gender Information Value Date Recorded Sex Assigned at Not on file Legal Sex Female 2:50 PM EST Gender Identity Not on file Sexual Orientation Not on file Plan of Treatment Upcoming Encounters Date Type Department Care Team (Late st Contact Info) Description 07/31/2025 3:00 PM EDT Office Visit [facility] [place] [facility] [address] [place] [address] Ramiro Britton MD [address] [facility] [place] [address] Health Maintenance Due Date Last Done Comments HEPATITIS C VIRUS SCREENING 1964 TETANUS 1964 HIV SCREENING DISCUSSION 1979 TDAP (ADULT) 1983 CERVICAL CANCER SCREENING DISCUSSION 1985 LIPID SCREENING 2004 COLORECTAL CANCER SCREENING DISCUSSION 2009 PNEUMOCOCCAL VACCINE SERIES (1 of 1 - PCV) 2014 ZOSTER (SHINGLES) VACCINE (1 of 2) 2014 MAMMOGRAM SCREENING DISCUSSION 08/15/2024 08/15/2023, 07/24/2022, 10/28/2020, Additional history exists COVID-19 VACCINE ( - 2023- season) 2025 INFLUENZA VACCINE (#1) 2025 RSV VACCINE (1 - 1-dose 75+ series) 2039 HEP B VACCINE Aged Out No longer elig ible based on patient's age to complete this topic Insurance [facility] PPO POS
--- OUTSIDE RECORDS SUMMARY | 2025-07-01 16:38 | XMS_ITS | Encounter Summary ---
Author Organization [facility] Address [address] [place] [address] Phone Care Team Providers Care Show Girl Name Role Phone Ziggy Dejesus MD Primary Care Provider [phone] Anita Hammonds RN Unavailable Unavailable Encounter Details Date Type Department Care Team (Late st Contact Info) Description 08/21/2024 Scanned Document [facility] [address] [place] [address] Scanning, Generic Provider Social History [...] Description 08/18/2025 11:20 AM EST Office Visit [facility] [address] [facility] [address] [place] [address] Celso Garibay DO [address] [facility] [address] [place] [address] documented as of this encounter Visit Diagnoses Not on filedocumented in this encounter Care Teams Show Girl Relationship Specialty Start Date End Date Ziggy Dejesus MD [address] [place] [address] PCP - General 08/17/21 Anita Hammonds, police lieutenantDivisional Merchandising Manager 08/22/24 10/03/24 documented as of this encounter
== END 2025-07-01 16:36 | disposition home or self-care (01) ==
LOC: SLEEP 16:35
PROVIDERS: PCP Family Medicine; Visit Provider Psychiatry & Neurology Neurology
DX: G47.33 Obstructive sleep apnea (adult) (pediatric) (principal)

== ENCOUNTER 2025-07-04 10:05 | Outpatient (OUT) | payer BC, SELFPAY ==
--- OUTSIDE RECORDS SUMMARY | 2025-07-04 10:09 | XMS_ITS | CCD ---
Author Organization [facility] Care Team Providers Care Ear Flap Binder Name Role Phone UNKNOWN, PROVIDER Unavailable Unavailable ASHLEY GRIGSBY Unavailable Unavailable UNKNOWN, PROVIDER Unavailable Unavailable ASHLEY GRIGSBY Unavailable Unavailable Ashley Grigsby Primary Care Provider Ashley Grigsby Unavailable Unavailable Unavailable Ashley Grigsby MD Primary Care Provider [phone] Unavailable Unavailable Ashley Grigsby Primary Care Physician DR CELSO GARIBAY Admitting Unavailabl e [place], DR CELSO Orozco Attending Unavailabl e SEB, DR RAMIREZ Primary Care Unavailable [place], DR CELSO Orozco Consulting Unavailclaire e SEB, DR RAMIREZ Primary Care Unavailable SEB, DR RAMIREZ Admitting Unavailable SEB, DR RAMIREZ Attending Unavailable SEB, DR RAMIREZ Consulting Unavailable ZIEBER, DR RONAN Guzman Consulting Unavailable GRECHGENTRY MCMANUS Consulting Unavailable KOO, INGA Consulting Unavailable [...] Unavailable MD Ashley Grigsby Primary Care Provider [phone] MD Evert Bruno Attending Provider Evert Bruno Unavailable MD Ashley Grigsby Primary Care Provider [phone] MD Evert Bruno Attending Provider [phone] Ashley Grigsby MD Primary Care Provider [phone] GABY PHILLIPS Admitting Unavail able GABY PHILLIPS Attending Unavail able ASHLEY GRIGSBY M Primary Care Unavailable HOY, ASHLEY M Primary Care Unavailable Ashley Grigsby MD Primary Care Provider [phone] STEPHANIE BERGER Attending Unavailable SEB, ASHLEY M Referring Unavailable HOY, ASHLEY M Primary Care Unavailable HOY, ASHLEY M Referring Unavailable HOY, ASHLEY M Primary Care Unavailable ALASTAL, YASEEN S Admitting Unavailable ALASTAL, YASEEN S Attending Unavailable HOReginald, ASHLEY M Primary Care Unavailable MAGO MONAE Attending Unavailable HOReginald, ASHLEY M Primary Care Unavailable ALASTAL, YASEEN S Attending Unavailable ALASTAL, YASEEN S Referring Unavailable HOReginald, ASHLEY M Primary Care Unavailable BARRY MARTINO Attending Unavailab BARRY Rosa Attending Unavailab BARRY Rosa Attending Unavailab Ashley Ruiz MD Primary Care Provider [phone] Lynnette Chapman MD Emergency Provider Donis Arroyo DO Admit Provider Donis Arroyo DO Attending Provider Anita Hammonds RN Unavailable Unavailable Donis Arroyo Admitting Unavailable Bella Stein Referring Unavailable Una Corrales Consulting Unavailable SebAshley M Primary Care Unavailable Kaiser Quijano Attending [...] Unavailable Ashley Grigsby MD Primary Care Provider [phone] Ashley Grigsby MD Primary Care Provider [phone] CHAUNCEY KIMBLE Referring Unavailable ASHLEY GRIGSBY Primary Care Unavailable RADHA JAIMES Referring Unavailable ASHLEY GRGISBY Primary Care Unavailable Ashley Grigsby MD Primary Care Provider [phone] NARANDI, ALI Attending Unavailable NAWRAS, ALI Referring Unavailable NAWRAS, ALI Referring Unavailable NAWRAS, ALI Attending Unavailable NAWRAS, ALI Attending Unavailable RAJI BYRD Attending Unavailable RAJI BYRD Referring Unavailable RAJI BYRD Attending Unavailable RAJI BYRD Referring Unavailable RAE LOUIE Attending Unavailable RAJI BYRD Referring Unavailable STEPJR. TITO, BRIDGETT Vann Attending Unavaila ble STEPJR. TITO, BRIDGETT Vann Referring Unavaila ble STEPJR. TITO, BRIDGETT Vann Attending Unavaila ble Allergies Allergy Classification Reported Allergen(s) Allergy Type Date of Onset Reaction(s) Facility (20 sources) Baclofen; Translations: [Baclofen TABS] Drug Allergy 017 Other (See Comments), Shortness of breath [place], [place] (20 sources) Latex; Translations: [LATEX] Propensity to adverse reactions to drug 006 Anaphylaxis, Shortness Of Breath, Anaphylaxis (disorder) [place] (16 sources) Penicillins; Translations: [penicillins] Propensity to adverse reactions to drug 006 Hives, Anaphylaxis (disorder) [place] (3 sources) rosuvastatin Drug Allergy 019 [place] (20 sources) Sulfamethoxazole / Trimethoprim; Translations: [Bactrim TABS] Drug Allergy 019 Hives [place] (11 sources) natural latex rubber Allergy to substance (finding) [facility] Work Phone: (11 sources) Penicillins; Translations: [Penicillins] Allergy to drug (finding) [facility] Work Phone: (20 sources) rosuvastatin; Translations: [Crestor TABS] Drug Allergy 017 Elevated liver enzymes level (finding), Other, Other (See Comments) [facility] (16 sources) Sulfonamides (Antibiotic); Translations: [Sulfa Drugs] Allergy to drug (finding) Hives [facility] (20 sources) levoFLOXacin; Translations: [levofloxacin] Drug Allergy 017 Other (See Comments), Candidiasis (disorder) [employer] Phone: (8 sources) Phenazopyridine; Translations: [PHENAZOPYRIDINE HCL] Drug Allergy Nausea And Vomiting [employer] Phone: (3 sources) Simvastatin; Translations: [SIMVASTATIN] [facility]ergy [facility] (15 sources) Sulfonamides (Antibiotic) Propensity to adverse reactions to drug Other (See Comments), Hives, Shortness [facility] breath [facility] (12 sources) Tobramycin; Translations: [tobramycin] Drug Allergy 023 Eruption of skin (disorder), Rash [facility] (1 source) Baclofen Drug Allergy [facility] (1 source) Latex Drug allergy (disorder) [facility] (5 sources) levoFLOXacin; Translations: [Levaquin] Drug Allergy thrush [facility] (1 source) Penicillins Drug allergy (disorder) [facility] (1 source) rosuvastatin Drug Allergy [facility] (1 source) Sulfonamides (Antibiotic) Drug allergy (disorder) [facility] (11 sources) rosuvastatin; Translations: [ROSUVASTATIN] Drug Allergy 017 Gastrointestinal Upset [facility] (5 sources) Sulfamethoxazole; Translations: [sulfamethoxazole] Drug Allergy 023 Hives, Hives, ([place]) 08/08/2011 [facility] (20 sources) Trimethoprim; Translations: [trimethoprim] Drug Allergy 023 Hives, Hives, ([place]) 08/08/2011 [facility] (6 sources) Fenofibrate; Translations: [FENOFIBRATE] Drug Allergy 009 ([place]) 08/08/2011 [facility] [employer] (3 sources) Penicillin Drug Allergy ([place]) 08/08/2011 [email or web address] Other (9 sources) Substance with sulfonamide structure and antibacterial mechanism of action (substance) Drug allergy Shortness of breath, Hives [email or web address] Other (7 sources) Penicillins Propensity to adverse reactions to drug Hives, Rash [facility] [employer] (14 sources) Tobramycin Drug Allergy Rash [facility] [employer] (7 sources) Fenofibrate; Translations: [FENOFIBRATE MICRONIZED] Drug Allergy [facility] (7 sources) Sulfonamides (Antibiotic); Translations: [SULFA (SULFONAMIDE ANTIBIOTICS)] Propensity to adverse reactions to drug (disorder) Unknown Reaction [facility] (1 source) Baclofen Drug Allergy [facility] (1 source) Fenofibrate Drug Allergy [facility] (1 source) Latex Drug allergy (disorder) [facility] (1 source) levoFLOXacin Drug Allergy [facility] (1 source) Penicillins Drug allergy (disorder) [facility] (13 sources) Baclofen Drug Allergy 017 Other, Shortness of breath [facility] (13 sources) Fenofibrate Drug Allergy GI intolerance [facility] (14 sources) fluvastatin; Translations: [FLUVASTATIN] Drug Allergy [facility] (13 sources) Latex Allergy to substance Anaphylaxis, Shortness of breath [facility] (13 sources) Penicillins Drug Intolerance Hives, Rash [facility] (14 sources) Phenazopyridine; Translations: [PHENAZOPYRIDINE] Drug Allergy GI intolerance [facility] (1 source) natural latex rubber; Translations: [LATEX, NATURAL RUBBER] Propensity to adverse reactions to drug (disorder) 006 [facility] Repository Medications Current Medications Medication Drug [...] Atherosclerosis of coronary artery bypass graft of [place] heart without angina pectoris , History of [...] sources) HMG-CoA Reductase Inhibitor Start: 10-27-2019 End: 05-15-2025 take 1 tablet by mouth once daily [...] 0 Start Date: 06/02/22 Status: Ordered Calcium (20 sources) Phosphate Binder, Calcium calcium 200 MG [...] daily. 0 [facility] Calcium 600 MG 1 [...] week. Active citalopram 40 mg oral tablet (20 sources) Serotonin Reuptake Inhibitor Start: 04-10-2024 take 1 tablet by mouth once daily citalopram (CeleXA) 40 mg tablet Take 1 tablet (40 mg) by mouth once daily. 08/03/2024 Active Start: 11-01-2022 take 4 tablets by [facility] once daily Citalopram 10 mg tablet Active 40 MG PO Daily November 01, 2022 12:00am Start: 11-01-2022 take 10 mg by mouth once daily Citalopram Active 10 MG PO Daily November 01, 2022 1:00am End: 08-13-2024 citalopram (CeleXA) 20 MG ta blet Take 20 mg by mouth Active take 2 tablets by [facility] once daily citalopram (CELEXA) 10 MG tablet Take 2 tablets by mouth daily 0 Active clopidogrel 75 mg oral tablet (11 sources) P2Y12 Platelet Inhibitor Start: 09-05-2024 End: 09-05-2025 take 1 tablet by mouth once daily clopidogrel (Plavix) 75 mg tablet Indications: Atherosclerosis of coronary artery bypass graft of [place] heart without angina pectoris , S/P PTCA [...] mouth two times weekly Vitamin D (Ergocalciferol) 31043 UNIT 1 capsule Orally TWICE a Week [...] 3 weeks, then 3x per week thereafter, [id number], 160, cm, 04/10/24 15:13:00 EDT, Height/Length Dosing, [...] Start: 04-30-2020 fluticasone 0. 05 mg/inh Nasal [place] Refill(s) 0 Start Date: 04/30/20 Status: Ordered Start: 10-24-2017 End: 02-29-2024 take 2 spray(s) nasal route once daily fluticasone (FLONASE) 50 mcg/actuation nasal spray Indications: Chronic pansinusitis Administer 2 sprays into each nostril daily. 16 g 11 10/24/2017 02/29/2024 Discontinued (Duplicate Listing) fluticasone 0.05 mg/inh Nasal [place] (3 sources) Start: 04-30-2020 fluticasone 0.05 mg/inh Nasal [place] Refill(s) 0 Start Date: 04/30/20 Status: Ordered [...] day(s), # 45 tab(s), Refills(s) 3, Pharmacy: [facility], 160, cm, 06/02/22 8:29:00 EDT, [...] 11, Pharmacy: [facility] #[id number], 160, cm, 04/10/24 15:13:00 EDT, Height/Length Dosing, [...] day(s) Active Multi Vitamin+ (4 sources) Start: 01-27-202 0 Multi Vitamin+ Refill(s) 0 Start Date: 10/27/19 Status: Ordered Multiple Vitamin (MVI, BARIATRIC ADVANTAGE VITABAND, CHEW TAB) (1 source) take 1 tablet by mouth once daily Multiple Vitamin (MVI, BARIATRIC ADVANTAGE VITABAND, CHEW TAB) Take 1 tablet by mouth daily 0 Active Multiple Vitamins-Minerals (PRESERVISION AREDS 2 PO) (1 source) Multiple Vitamins-Minerals (PRESERVISION AREDS 2 PO) Take by mouth 0 Active fxzztykb-kwtr-OW-arley cium &mins (THERAGRAN-M) 9 mg iron-400 mcg tablet (3 sources) xlfqbrlz-zhjp-IN - calcium &mins (THERAGRAN-M) 9 mg iron-400 [...] mouth 2 times a day. 0 Active Ddnoydrddvdp-Pra-Zlct-Fa-Vit K (Bariatric Multivitamins) 45 mg iron- 800 mcg-120 mcg Capsule (4 sources) Start: 11-01-2022 take 1 capsule by mouth twice daily Exyxbcftbmsg-Pik-Lzjy-Fa-Vit K (Bariatric Multivitamins) 45 mg iron- 800 mcg-120 mcg Capsule Active 1 CAP PO Twice daily November 01, 2022 1:00am Start: 11-01-2022 take 1 capsule by [facility] twice daily Zlnkmqrlewzg-Diq-Cgar-Fa-Vit K (Bariatri c Multivitamins) 45 mg iron- [...] tablet Indications: Atherosclerosis of coronary artery of [place] heart without angina pectoris, unspecified vessel or [...] powder 04/19/2018 Active omega-3 acid ethyl esters (senior care) 1000 mg oral capsule (3 sources) take [...] April 21, 2018 11:01pm polyethylene glycol 3350 364417 mg / potassium chloride 2970 mg / sodium bicarbonate 6740 mg / sodium chloride 5860 mg / sodium sulfate 99660 mg powder for oral solution (3 sources) [...] mouth 3 times a day. Active sod tzcpo-gpggya-lpsgtd bottle (NEILMED SINUS RINSE COMPLETE) packet with rinse device nasal solution (3 sources) Start: 09-13-2017 take 1 dose nasal route once daily sod qdcsz-gdzwds-zwcctb bottle (NEILMED SINUS RINSE COMPLETE) packet with [...] Ordered Start: 04-17-2018 take 1 capsule by [facility] once daily tamsulosin (Flomax) 0.4 mg 24 hr capsule Take 1 capsule (0.4 mg) by mouth once daily. 10/26/2020 Active take 1 capsule by mo uth every twenty-four hours in the morning tamsulosin [...] 12:00am take 1 tablet by gavin every twenty-four hours traMADol HCl 50 MG [...] 11, Pharmacy: [facility] #[id number], 160, cm, 04/10/24 15:13:00 EDT, Height/Length Dosing, 74, kg, 04/10/24 15:13:00 EDT, Weight Dosing Start Date: 04/10/24 Stop Date: 04/05/25 Status: Ordered vit C,K-Nq-tlqdg-lutein-zeaxan (PRESERVISION AREDS-2) 250-90-40-1 mg capsule (1 source) vit C,U-Gy-omaeh-lutein-z eaxan (PRESERVISION AREDS-2) 250-90-40-1 mg capsule Take [...] a day for 30 day(s) Active vitamins A,C,Z-mknj-xhvjpn (1 source) Start: 08-19-2024 vitamins A,C,V-ldqi-glvaye Active PO August 19, 2024 12:00am Zyrtec [...] ascorbic acid 226 mg / beta carotene 93392 unt / cuprous oxide 0.8 mg / [...] / neomycin 3.5 mg/ml / polymyxin b 90203 unt/ml ophthalmic suspension (3 sources) Aminoglycoside Antibacterial, Polymyxin-class Antibacterial, Corticosteroid Start: 06-13-2021 take 2 drop(s) into the eye(s) four times daily Neomycin-Polymyxin- HC 3.5-61327-8 Ophthalmic Suspension instill 2 drops INTO AFFECTED [...] Date Documented Da te Episodic/Chronic Abdominal pain (16 sources) Abdominal pain; Translations: [Unspecified abdominal pain] Onset: 2 Episodic Acute myocardial infarction (3 sources) Acute myocardial [...] sources) Coronary atherosclerosis; Translations: [Coronary atherosclerosis of [place] coronary artery] Onset: 2 Chronic Coronary atherosclerosis [...] 4 08-18-2024 Episodic Other aftercare (1 source) 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; Translations: [[facility] CURRENT USE OF ASPIRIN] Onset: 3 Episodic Other aftercare (1 source) Other detention (current) drug therapy; Translations: [OTH [facility] CURRENT DRUG THERAPY] Onset: 3 Episodic Other and ill-defined heart disease (3 sources) Heart disease; Translations: [Heart disease, unspecified] Onset: 7 07-10-2017 Chronic Other connective tissue disease (6 sources) Tendonitis of right wrist; Translations: [Other enthesopathies, not elsewhere classified] 11-26-2024 Episodic Other connective tissue disease (4 sources) Muscle weakness of upper limb; Translations: [Other symptoms and signs involving the musculoskeletal system] 05-15-2025 Episodic Other connective tissue disease (4 sources) Pain in right arm; Translations: [Pain in right arm] 05-15-2025 Episodic Other diseases of bladder and urethra (2 sources) Detrusor overactivity; Translations: [Overactive bladder] Onset: 4 Chronic Other diseases of bladder and urethra (2 sources) Overactive bladder 04-10-2024 Chronic Other diseases of bladder and urethra (2 sources) Pain in urethra 04-10-2024 Episodic Other gastrointestinal disorders (1 source) Intestinal malabsorption, unspecified; Translations: [INTESTINAL MALABSORPTION UNS] Onset: 2 Chronic Other gastrointestinal disorders (2 sources) Bariatric surgery status; Translations: [BARIATRIC SURGERY STATUS] Onset: 3 Episodic Other gastrointestinal disorders (3 sources) Constipation; Translations: [Constipation, unspecified] Episodic Other gastrointestinal disorders (1 source) Constipation, unspecified Episodic Other liver diseases (3 sources) Elevated liver enzymes level; Translations: [Abnormal levels of other serum enzymes] Episodic Other liver diseases (1 source) Abnormal levels of other serum enzymes Episodic Other nervous system disorders (4 sources) Ulnar neuropathy of right arm; Translations: [Lesion of ulnar nerve, right upper limb] 05-15-2025 Chronic Other nervous system disorders (1 source) Carpal tunnel syndrome of left wrist; Translations: [Carpal tunnel syndrome, left upper limb] 05-28-2025 Chronic Other nervous system disorders (5 sources) Numbness; Translations: [Anesthesia of skin] 05-15-2025 Episodic Other nervous system disorders (1 source) Paresthesia; Translations: [Paresthesia of skin] 05-28-2025 Episodic Other non-traumatic joint disorders (2 sources) Pain in wrist; Translations: [Pain in right wrist] 11-25-2024 Episodic Other non-traumatic joint disorders (4 sources) Pain of right wrist; Translations: [Pain in right wrist] 05-15-2025 Episodic Other non-traumatic joint disorders (2 sources) Chronic pain of right upper limb; Translations: [Pain in right wrist] 06-02-2025 Episodic Other nutritional; endocrine; and metabolic disorders [...] conditions (not mental disorders or infectious disease) (6 sources) Other specified abnormal findings of blood [...] Unclassified (1 source) Athscl heart disease of [place] coronary artery w/o ang pctrs / I25.10(ICD-9) [...] Unclassified (1 source) Med Refill Onset: 4 Unclassified (2 sources) Chronic pain of right upper limb 06-02-2025 Past or Other Problems Problem Classification Problem Date Documented Date Episodic/Chronic Cancer of colon (2 sources) Personal history of other malignant neoplasm of large intestine; Translations: [Personal history of other malignant neoplasm of large intestine] Onset: 12-12-2024 Episodic Diseases of mouth; excluding dental (6 sources) Disturbances of salivary secretion; Translations: [Xerostomia] Onset: 09-13-2021 01-17-2024 Episodic Mood disorders (3 sources) Mood disorders Onset: 10-13-2020 10-13-2020 Other aftercare (2 sources) Encounter for follow-up examination after completed treatment for malignant neoplasm; Translations: [Encounter for follow-up examination after completed treatment for malignant neoplasm] Onset: 12-12-2024 Episodic Other connective tissue disease (1 source) Pain in left arm; Translations: [Pain in left arm] Onset: 10-11-2024 Episodic Other connective tissue disease (1 source) Pain in right arm; Translations: [Pain in right arm] Onset: 10-11-2024 Episodic Other diseases of kidney and ureters (3 sources) Kidney disease; Translations: [Disorder of kidney and ureter, unspecified] Onset: 07-10-2017 07-10-2017 Episodic Other upper respiratory disease (1 source) Other specified disorders of nose and nasal sinuses; Translations: [Other specified disorders of nose and nasal sinuses] Onset: 03-20-2022 Episodic Other upper respiratory disease (4 sources) Nasal mucosa dry; Translations: [Other specified disorders of nose and nasal sinuses] Onset: 03-20-2022 01-17-2024 Episodic Pancreatic disorders (not diabetes) (15 sources) Idiopathic acute pancreatitis without necrosis or infection; Translations: [Acute pancreatitis without necrosis or infection, unspecified] Onset: 10-09-2022 Episodic Unclassified (1 source) Encounter for preprocedural cardiovascular examination; Translations: [Encounter for preprocedural cardiovascular examination] Onset: 08-29-2017 Unclassified (11 sources) Never smoked tobacco; Translations: [Never a smoker] Results Test Name Value Interpretation Reference Range Facility MR WRIST RIGHT WO IV CONTRAS Ton 06-16-2025 MR WRIST RIGHT WO IV CONTRAST EXAM/TECHNIQUE: MR WRIST RIGHT WO IV CONTRAST [...] discussed. ELECTRONICALLY SIGNED BY: Wilder Arango MD Normal Not Available Comment on above: Order Comment: MRI R T wrist w/o at [facility]. Orbits if needed. Please contact patient to schedule Orders Onlyon 05-19-2025 Orders Only [id number] Diana Saleem ttrene 1965 F Date Provider Department Center 05/19/2025 [id number] WATSON [facility] Family History Problem Relation Age of Onset Hyperlipidemia Mother Hyperlipidemia Father Hyperlipidemia Brother Heart attack Brother Family Status - Relation Status Age at Mother Father Brother Brother Normal [facility] Telephoneon 05-19-2025 Telephone [id number] Diana Saleem ttrene 1965 F Date Provider Department Center 05/19/2025 GISELA OMER [facility] Family History Problem Relation Age of Onset Hyperlipidemia Mother Hyperlipidemia Father Hyperlipidemia Brother Heart attack Brother Family Status - Relation Status Age at Mother Father Brother Brother Normal [facility] XR Wrist - right 2 Viewson 0 05-15-2025 Image result: AP and Lateral Right Wrist: Bone Structure: No acute fracture or dislocation Joint Spaces: The carpal joint spaces are well preserved, minimal joint space narrowing mostly radial with subchondral sclerosis. Scapho-lunate interval within normal limit. Soft tissue: No swelling or calcification Impression: No acute bony process Right Wrist with minimal degenerative changes. [facility] Radiology Study observation (narrative) [facility] 36on 05-14-2025 35 [employer] spoke with Justo kang the pharmacy clinical specialist and clarify some information and that is what was needed so hopefully soon be able to get soon. Normal [facility] Telephoneon 05-14-2025 Telephone [id number] Diana Saleem 1965 F Date Provider Department Center 05/14/2025 [id number] WATSON [facility] Family History Problem Relation Age of Onset Hyperlipidemia Mother Hyperlipidemia Father Hyperlipidemia Brother Heart attack Brother Family Status - Relation Status Age at Mother Father Brother Brother [facility] Telephone [id number] SaleemDiana orozco tte 1965 [facility] Department [place] 05/14/2025 GISELA OMER [facility] Family History Problem Relation Age of Onset Hyperlipidemia Mother Hyperlipidemia Father Hyperlipidemia Brother Heart attack Brother Family Status - Relation Status Age at Mother Father Brother Brother [facility] 29on 05-08-2025 29 Addended by: ANALISA TAYLOR on: 05/14/2025 03:06 PM Modules accepted: [facility] 29 Addended by: ANALISA TAYLOR on: 05/12/2025 05:18 PM Modules accepted: [facility] Follow-Upon 05-08-2025 Follow-Up [id number] SaleemDiana ttrene 1965 [facility] 05/08/2025 CHAUNCEY CESPEDES [facility] Family History Problem Relation Age of Onset Hyperlipidemia Mother Hyperlipidemia Father Hyperlipidemia Brother Heart attack Brother Family Status - Relation Status Age at Mother Father Brother Brother Level of Service:61370 [place] OFFICE/OUTPATIENT ESTABLISHED MOD MDM 30 MIN () Reason for Visit and Comments: Follow-up [[id number]] [facility] 36on 03-25-2025 36 I called the patient and discussed the MRI/ MRCP findings and the patient [...] Dr. Kimble is aware of the plan. [facility] Telephoneon 03-25-2025 Telephone [id number] SaleemDiana ttrene 1965 Date Provider Department Center 03/25/2025 [id number] MARTIN [facility] Family History Problem Relation Age of Onset Hyperlipidemia Mother Hyperlipidemia Father Hyperlipidemia Brother Heart attack Brother Family Status - Relation Status Age at Mother Father Brother Brother [facility] 36on 03-20-2025 36 03/25/25@1020 Left pa tient a message that she will need to [...] should she follow up in the clinic. [facility] Telephoneon 03-20-2025 Telephone [id number] Diana Saleem 1965 Provider Department Center 03/20/2025 GISELA OMER [facility] Family History Problem Relation Age of Onset Hyperlipidemia Mother Hyperlipidemia Father Hyperlipidemia Brother Heart attack Brother Family Status - Relation Status Age at Mother Father Brother Brother [facility] 02-18-2025 36 Called and discussed with jay pt the HIDA and MRCP in details. ----- Message from Gisela sent at 02/11/2025 3:15 PM EDT ----- Patient calling for results and follow up plan. Office visit with you and Dr. Kimble 01/09/25 [facility] [facility] ----- Message from Gisela sent at 02/11/2025 3:15 PM EDT ----- Patient calling for results and follow up plan. Office visit with you and Dr. Kimble 01/09/25 [facility] Telephoneon 02-18-2025 Telephone [id number] Diana Saleem ttrene 1965 F Date Provider Department Center 02/18/2025 385SANDRA BETHEA [facility] Family History Problem Relation Age of Onset Hyperlipidemia Mother Hyperlipidemia Father Hyperlipidemia Brother Heart attack Brother Family Status - Relation Status Age at Mother Father Brother Brother Normal [facility] 36on 02-11-2025 36 Patient called me to get results of HIDA scan and then what to do as follow up. I do see the HIDA scan results from 01/30/25 @ [facility] and they are normal will forward to Dr. Martin on of our [facility] [place] to see what further he would like to do. Normal [facility] Telephoneon 02-11-2025 Telephone [id number] Diana Saleem tte 1965 Date Provider Department Center 02/11/2025 396GISELA ROCHA [facility] GEORGEI Family History Problem Relation Age of Onset Hyperlipidemia Mother Hyperlipidemia Father Hyperlipidemia Brother Heart attack Brother Family Status - Relation Status Age at Mother Father Brother Brother Normal [facility] NM HIDA W EJECTION FRACTIONo n 01-30-2025 [...] Prado M.D.. Not Vldtd Invalid Interpretation Code [facility] Elastase.pancreatic (Stl) [M ass/Mass]on 01-17-2025 Pancreatic Elastase, F 174 mcg/g Low >200 (Normal) [facility] Comment on above: Result Comment: NOTE Interpretation: Borderline (100-200 mcg/g); Consistent with slight to moderate pancreatic insufficiency Test Performed by: [facility] - [address] [address] Manifold Operator: Andra Flores Ph.D.; CLIA# [id number] Performed By: #### 2 5907-7 #### [facility] ([id number]) [address] [place] [address], [place] [address] 29on 01-09-2025 29 Addended by: CHAUNCEY KIMBLE on: 01/10/2025 08:32 AM Modules accepted: Level of Service [facility] Follow-Upon 01-09-2025 Follow-Up [id number] Diana Saleem tte 1965 F Date Provider Department Center 01/09/2025 375-CHAUNCEY KIMBLE [facility] GI [facility] Family History Problem Relation Age of Onset Hyperlipidemia Mother Hyperlipidemia Father Hyperlipidemia Brother Heart attack Brother Family Status - Relation Status Age at Mother Father Brother Brother Level of Service:63587 [place] OFFICE/OUTPATIENT ESTABLISHED MOD MDM 30 MIN () Reason for Visit and Comments: Follow-up [344092] - MRI follow up and seen at [facility] and in hospital for 1 day. Will get records. Enzo helped tremendously this time and she came home with it, She just complains of fatigue. PCP Ordered sleep study [facility] 36on 01-02-2025 36 01/02/25@4236 Returned a phone call to patient. She had wanted to follow up with Dr. Chauncey Kimble to let him know she is currently in the ER at [facility] dx with pancreatitis. She had an MRCP on 12/31/24 and if any other lab work needs done to call the Hospital. Normal [facility] Telephoneon 01-02-2025 Telephone [id number] Diana Saleem ttrene 1965 Date Provider Department Center 01/02/2025 GISELA OMER [facility] DOV Family History Problem Relation Age of Onset Hyperlipidemia Mother Hyperlipidemia Father Hyperlipidemia Brother Heart attack Brother Family Status - Relation Status Age at Mother Father Brother Brother [facility] MR ABDOMEN W AND WO CONTRAST MRCPon [...] Landeros MD. Not Vldtd Invalid Interpretation Code [facility] Follow-Upon 12-12-2024 Follow-Up [id number] Diana Saleem ttrene 1965 F Date Provider Department Center 12/12/2024 CHAUNCEY CESPEDES [facility] GI [facility] Family History Problem Relation Age of Onset Hyperlipidemia Mother Hyperlipidemia Father Hyperlipidemia Brother Heart attack Brother Family Status - Relation Status Age at Mother Father Brother Brother Level of Service:37645 [place] OFFICE/OUTPATIENT NEW MODERATE MDM 45 MINUTES (GC) Reason for Visit and Comments: Pancreatitis [854880] - Pain when she stresses or when she eats. She has trouble with losing weight as she always feels bloated and gassy. Normal [facility] XR Wrist - right 2 Viewson 0 11-26-2024 Imaging Result: AP and Lateral Right Wrist: Bone Structure: No acute fracture or dislocation Joint Spaces: The carpal joint spaces are well preserved, mild joint space narrowing and remodeling with subchondral sclerosis distal radius favoring arthritis. , Scapho-lunate interval within normal limit. Soft tissue: No swelling or calcification Impression: No acute bony process Right Wrist [facility] Radiology Study observation (narrative) [facility] XR FOREARM RT 2 VWSon 2024 XR FOREARM RT 2 VWS XR FOREARM RT 2 VWS CLINICAL INFORMATION: Right arm pain TECHNIQUE: XR FOREARM RT 2 VWS 2 views right forearm are obtained. There is no acute osseous, articular, or soft tissue abnormality. IMPRESSION: Negative exam. Finalized by Afshin Barrett MD on 10/11/2024 1:59 PM Normal [facility] ECG 12 lead ECGon 08-22-2024 ECG 12 lead ECG [facility] [place] [address] [place] [address] Electrocardiograph Report Signed Patient: Jose Alberto Saleem MR#: [id number] 571 : 1965 Acct:[id number] Age/Sex: 59 / F ADM Date: 08/20/24 Loc: Room: [address] [place] [address] Type: DIS IN Attending Dr: Kaiser Quijano [...] abnormality Abnormal ECG Confirmed by Bella Stein ([id number]) on 08/22/2024 11:33:07 PM Referred By: Bella Stein Electronically Signed By: Bella Stein Transcribed By: MUS Signed By Bella Stein MD 4 2333 Normal [facility] Troponin I High Sensitivityo n 08-22-2024 Troponin I High Sensitivity 1211.6 pg/mL Off scale high 0.0-15.0 [facility] Comment on above: Result Comment: Crit ical Result : Called to and read back by: ROB MCDONALD at: 08/22/2024 06:38:37 by:RAMONA PERFORMED BY: [place] [address] PATHOLOGIST HOT METAL CRANE OPERATOR JANA OLMEDO M.D. Performed By: #### H S TROP ####[facility] [address] [place] [address] [facility] Blood Urea Nitrogenon 2023 Urea nitrogen [Mass/Vol] 14 mg/dL Normal 7-25 [facility] Comment on above: Performed By: #### C REAT, BUN, PP, CBC, LYTES ####[place] [address] [place] [address] [facility] Coagulation Profileon 2023 aPTT Coag (Bld) [Time] 35.9 s Normal 25.1-36.5 [facility] Comment on above: Result Comment: A he matocrit value greater than 55% may lead to inaccurate results in coagulation testing. Patients having hematocrit values >55% require a special collection tube for coagulation studies. Please contact the laboratory at [phone] for redraw instructions. PERFORMED BY: [address] [place] [id number] PATHOLOGIST HOT METAL CRANE OPERATOR JANA OLMEDO M.D. Performed By: #### C REAT, BUN, PP, CBC, LYTES ####[place] [id number] [facility] INR Coag (PPP) [Relative time] 1.1 {INR} Normal [facility] Comment on above: Result [...] #### C REAT, BUN, PP, CBC, LYTES ####[place] [id number] [facility] PT Coag (PPP) [Time] 12.2 s Normal 9.0-12.9 [facility] Comment on above: Result Comment: A he matocrit value greater than 55% may lead to inaccurate results in coagulation testing. Patients having hematocrit values >55% require a special collection tube for coagulation studies. Please contact the laboratory at [phone] for redraw instructions. Performed By: #### C REAT, BUN, PP, CBC, LYTES ####[address] Complete Blood Count Auto Di ffon 08-21-2024 Basophils (Bld) [#/Vol] 0.0 10*3/uL Normal 0.0-0.2 [facility] Comment on above: Result Comment: PERF ORMED BY: [facility] [address] [place] [address] PATHOLOGIST HOT METAL CRANE OPERATOR JANA OLMEDO M.D. Performed By: #### C REAT, BUN, PP, CBC, LYTES ####[address] Basophils/100 WBC (Bld) 0.3 % Normal . [facility] Comment on above: Performed By: #### C REAT, BUN, PP, CBC, LYTES ####[address] Eosinophils (Bld) [#/Vol] 0.2 10*3/uL Normal 0.0-0.45 [facility] Comment on above: Performed By: #### C REAT, BUN, PP, CBC, LYTES ####[address] Eosinophils/100 WBC (Bld) 3.9 % Normal . [facility] Comment on above: Performed By: #### C REAT, BUN, PP, CBC, LYTES ####[address] Erythrocyte distribution width (RBC) [Ratio] 12.7 % Normal 11.9-15.3 [facility] Comment on above: Performed By: #### C REAT, BUN, PP, CBC, LYTES ####[address] Hematocrit (Bld) [Volume fraction] 42.5 % Normal 34.0-46.4 [facility] Comment on above: Performed By: #### C REAT, BUN, PP, CBC, LYTES ####[address] Hemoglobin (Bld) [Mass/Vol] 14.6 g/dL Normal 11.8-15.4 [facility] Comment on above: Performed By: #### C REAT, BUN, PP, CBC, LYTES ####[address] Lymphocytes (Bld) [#/Vol] 1.7 10*3/uL Normal 1.00-4.8 [facility] Comment on above: Performed By: #### C REAT, BUN, PP, CBC, LYTES ####[address] Lymphocytes/100 WBC (Bld) 35.0 % Normal . [facility] Comment on above: Performed By: #### C REAT, BUN, PP, CBC, LYTES ####[address] MCH (RBC) [Entitic mass] 30.8 pg Normal 24.7-34.3 [facility] Comment on above: Performed By: #### C REAT, BUN, PP, CBC, LYTES ####[address] MCV (RBC) [Entitic vol] 89.8 fL Normal 80-100 [facility] Comment on above: Performed By: #### C REAT, BUN, PP, CBC, LYTES ####[address] Mean Corpuscular HGB Conc 34.3 g/dL Normal 32.0-35.0 [facility] Comment on above: Performed By: #### C REAT, BUN, PP, CBC, LYTES ####[address] Monocytes (Bld) [#/Vol] 0.5 10*3/uL Normal 0.0-0.8 [facility] Comment on above: Performed By: #### C REAT, BUN, PP, CBC, LYTES ####[address] Monocytes/100 WBC (Bld) 10.9 % Normal . [facility] Comment on above: Performed By: #### C REAT, BUN, PP, CBC, LYTES ####[address] Neutrophils (Bld) [#/Vol] 2.5 10*3/uL Normal 1.8-7.7 [facility] Comment on above: Performed By: #### C REAT, BUN, PP, CBC, LYTES ####[address] Neutrophils/100 WBC (Bld) 49.9 % Normal . [facility] Comment on above: Performed By: #### C REAT, BUN, PP, CBC, LYTES ####[address] NRBC% 0.1 /100{WBC} Normal 0-0.5 [facility] Comment on above: Performed By: #### C REAT, BUN, PP, CBC, LYTES ####[address] Platelet mean volume (Bld) [Entitic vol] 7.7 fL Normal 6.3-10.7 The [facility] Comment on above: Performed By: #### C REAT, BUN, PP, CBC, LYTES ####[address] Platelets (Bld) [#/Vol] 172 10*3/uL Normal 150-450 [facility] Comment on above: Performed By: #### C REAT, BUN, PP, CBC, LYTES ####[address] RBC (Bld) [#/Vol] 4.73 10*6/uL Normal 3.60-5.00 The [facility] Comment on above: Performed By: #### C REAT, BUN, PP, CBC, LYTES ####[place] [address] [place] [id number] [facility] WBC (Bld) [#/Vol] 4.9 10*3/uL Normal 3.8-11.6 [facility] Comment on above: Performed By: #### C REAT, BUN, PP, CBC, LYTES ####[place] [address] [place] [address] [facility] Creatinineon 08-21-2024 Creatinine [Mass/Vol] 0.61 mg/dL Normal 0.60-1.20 [facility] Comment on above: Performed By: #### C REAT, BUN, PP, CBC, LYTES ####[place] [id number] [facility] Creatinine Clr Calc Pharmacy 97.73 Normal [facility] Comment on above: Result Comment: PERF ORMED BY: [place] [address] PATHOLOGIST HOT METAL CRANE OPERATOR JANA OLMEDO M.D. Performed By: #### C REAT, BUN, PP, CBC, LYTES ####[place] [id number] [facility] GFR/1.73 sq M.predicted MDRD (S/P/Bld) [Vol rate/Area] mL/min/{1.73_m2} Normal [facility] Comment on above: Performed By: #### C REAT, BUN, PP, CBC, LYTES ####[place] [id number] [facility] ECG 12 lead ECGon 08-21-2024 ECG 12 lead ECG [facility] [place] [address] [place] [address] Electrocardiograph Report Signed Patient: Jose Alberto Saleem MR#: [id number] 571 : 1965 Acct:[id number] Age/Sex: 59 / F ADM Date: 08/20/24 Loc: Room: [address] [place] [address] Type: DIS IN Attending Dr: Kaiser Quijano [...] abnormality Abnormal ECG Confirmed by Bella Stein ([id number]) on 08/22/2024 11:33:52 PM Referred By: Bella Stein Electronically Signed By: Bella Stein Transcribed By: [facility] Signed By Bella Stein MD 4 2333 Normal [facility] Electrolyteson 08-21-2024 Anion gap [Moles/Vol] 11.0 mmol/L Normal 6.0-15.0 Th e [facility] Phys[facility] Comment on above: Performed By: #### C REAT, BUN, PP, CBC, LYTES ####[address] Chloride [Moles/Vol] 105 mmol/L Normal 98-107 [facility] Comment on above: Performed By: #### C REAT, BUN, PP, CBC, LYTES ####[address] CO2 [Moles/Vol] 27.9 mmol/L Normal 21.0-31.0 The [facility] Comment on above: Performed By: #### C REAT, BUN, PP, CBC, LYTES ####[address] Potassium [Moles/Vol] 3.9 mmol/L Normal 3.5-5.1 The [facility] Comment on above: Performed By: #### C REAT, BUN, PP, CBC, LYTES ####[address] Sodium [Moles/Vol] 140 mmol/L Normal 136-145 [facility] Comment on above: Performed By: #### C REAT, BUN, PP, CBC, LYTES ####[facility] [place] [address] [facility] NM lia perf SPECT rest stron 08-20-2024 NM lia perf SPECT rest str [facility] Main [place] [id number] Nuclear Medicine Report Signed Patient: Jose Alberto Saleem MR#: [id number] 571 : 1965 Acct:[id number] Age/Sex: 59 / F ADM Date: 08/18/24 Loc: Room: [address] [place] [address] Type: ADM INOo Attending Dr: Chucky Dunn [...] Bella Stein M.D.08/20/2024 3:56 PM Dictation Location: [place] [address] Transcribed By: [facility] 08/20/24 1553 Dictated By: Bella Stein MD 08/20/24 1552 Signed By: 08/20/24 1556 Normal [facility] A1C with Estimated Average G rebekahlio 08-19-2024 Glucose [Mass/Vol] 117 mg/dL Normal [facility] Comment on above: Result Comment: PERF ORMED BY: [address] [address] PATHOLOGIST HOT METAL CRANE OPERATOR JANA OLMEDO M.D. Performed By: #### A 1C [facility] eA, TROP ####[facility] [place] [address] [facility] HbA1c (Bld) [Mass fraction] 5.7 % High 4.3-5.6 [facility] Comment on above: Result Comment: Incr eased risk for diabetes: 5.7 - 6.4 diabetes: >6.4 glycemic control for adults with diabetes: <7.0 Performed By: #### A 1C [facility] eA, HS TROP ####[facility] [address] [place] [address] [facility] ECG 12 lead ECGon 08-19-2024 ECG 12 [place] [address] Electrocardiograph Report Signed Patient: Jose Alberto Saleem MR#: [id number] 571 : 1965 Acct:[id number] Age/Sex: 59 / F ADM Date: 08/18/24 Loc: Room: [address] [place] [address] Type: ADM INOo Attending Dr: Chucky Dunn [...] abnormality Abnormal ECG Confirmed by Bella Stein ([id number]) on 08/21/2024 12:00:39 AM Referred By: Bella Stein Electronically Signed By: Bella Stein Transcribed By: MUS Signed By Bella Stein MD 4 0000 Normal [facility] ECG 12 lead ECG [facility] [place] [address] Electrocardiograph Report Signed Patient: Jose Alberto Saleem MR#: [id number] 571 : 1965 Acct:[id number] Age/Sex: 59 / F ADM Date: 08/18/24 Loc: 3T Room: [address] [place] [address] Type: ADM INOo Attending Dr: Chucky Dunn [...] rhythm Leftward axis Confirmed by Bridgett Monreal ([id number]) on 08/20/2024 11:52:24 PM Referred By: Bella Stein Electronically Signed By: Bridgett Monreal Transcribed By: MUS Signed By Bridgett Monreal MD 08/20/24 2352 Normal [facility] Troponin I High Sensitivityo n 08-19-2024 Troponin I High Sensitivity 4.6 pg/mL Normal 0.0-15.0 [facility] Comment on above: Result Comment: PERF ORMED BY: [place] [address] PATHOLOGIST HOT METAL CRANE OPERATOR JANA OLMEDO M.D. Performed By: #### A [address] [facility], [facility] ####[place] [id number] [facility] X-ray reportOrdered By: Anna Wick on 08-19-2024 [place] [address] XRay Report Signed Patient: Jose Alberto Saleem MR#: [id number] : 1965 Acct:[id number] Age/Sex: 59 / F ADM Date: 4 Loc: 3T Room: [address] [place] [address] Type: ADM INOo Attending Dr: Donis Arroyo DO Copies to: MD Donis Castle, ~ Ordering Provider: Lynnette Chapman MD Date of [...] Thelma Wick M.D.08/19/2024 12:10 AM Dictation Location: [place] [address] Transcribed By: [facility] 08/19/249 Dictated By: Thelma Wick MD 08/18/242210 Signed By: 08/19/249 [facility] Work Phone: Alanine aminotransferase [En zymatic activity/volume] in Serum or PlasmaOrdered By: Lynnette Chapman on 08-18-2024 ALT [Catalytic activity/Vol] Alanine aminotransferase [Enzymatic activity/volume] in Serum or Plasma 7-52 [facility] Albumin [Mass/volume] in Ser um or Plasma by Bromocresol green (BCG) dye binding methoOrdered By: Lynnette Chapman on 08-18-2024 Albumin BCG dye [Mass/Vol] Albumin [Mass/volume] in Serum or Plasma by Bromocresol green (BCG) dye binding metho 3.5-5.7 [facility] Alkaline phosphatase [Enzyma tic activity/volume] in Serum or PlasmaOrdered By: Lynnette Chapman on 08-18-2024 ALP [Catalytic activity/Vol] Alkaline phosphatase [Enzymatic activity/volume] in Serum or Plasma 34-104 [facility] Aspartate aminotransferase [ Enzymatic activity/volume] in Serum or PlasmaOrdered By: Lynnette Chapman on 08-18-2024 AST [Catalytic activity/Vol] Aspartate aminotransferase [Enzymatic activity/volume] in Serum or Plasma 13-39 [facility] B-Type Natriuretic Peptideon 08-18-2024 Natriuretic peptide B (Bld) [Mass/Vol] 31.0 pg/mL Normal 5-100 [facility] Comment on above: Result Comment: PERF ORMED BY: [place] [address] PATHOLOGIST HOT METAL CRANE OPERATOR JANA OLMEDO M.D. Performed By: #### H S TROP, LIPASE, PT, BMP, HEPATIC, CK, CBC, BNP ####[address] Basic Metabolic Panelon 08-01 Anion gap [Moles/Vol] 10.7 mmol/L Normal 6.0-15.0 [facility] Comment on above: Performed By: #### H S TROP, LIPASE, PT, BMP, HEPATIC, CK, CBC, BNP #### [address] Performed By: #### H S TROP, LIPASE, PT, BMP, HEPATIC, CK, CBC, BNP ####[address] Calcium [Mass/Vol] 10.1 mg/dL Normal 8.6-10.3 [facility] Comment on above: Performed By: #### H S TROP, LIPASE, PT, BMP, HEPATIC, CK, CBC, BNP #### [address] Performed By: #### H S TROP, LIPASE, PT, BMP, HEPATIC, CK, CBC, BNP ####[address] Chloride [Moles/Vol] 102 mmol/L Normal 98-107 [facility] Comment on above: Performed By: #### H S TROP, LIPASE, PT, BMP, HEPATIC, CK, CBC, BNP #### [address] Performed By: #### H S TROP, LIPASE, PT, BMP, HEPATIC, CK, CBC, BNP ####[address] [address] [place] CO2 [Moles/Vol] 28.4 mmol/L Normal 21.0-31.0 The [facility] Comment on above: Performed By: #### H S TROP, LIPASE, PT, BMP, HEPATIC, CK, CBC, BNP #### [address] Performed By: #### H S TROP, LIPASE, PT, BMP, HEPATIC, CK, CBC, BNP ####[address] Creatinine [Mass/Vol] 0.62 mg/dL Normal 0.60-1.20 [facility] Comment on above: Performed By: #### H S TROP, LIPASE, PT, BMP, HEPATIC, CK, CBC, BNP #### [address] Performed By: #### H S TROP, LIPASE, PT, BMP, HEPATIC, CK, CBC, BNP ####[address] Creatinine Clr Calc Pharmacy 95.72 Normal [facility] Comment on above: Result Comment: PERF ORMED BY: [place] [address] PATHOLOGIST HOT METAL CRANE OPERATOR JANA OLMEDO M.D. Performed By: #### H S TROP, LIPASE, PT, BMP, HEPATIC, CK, CBC, BNP #### [address] Performed By: #### H S TROP, LIPASE, PT, BMP, HEPATIC, CK, CBC, BNP ####[address] GFR/1.73 sq M.predicted MDRD (S/P/Bld) [Vol rate/Area] mL/min/{1.73_m2} Normal [facility] Comment on above: Performed By: #### H S TROP, LIPASE, PT, BMP, HEPATIC, CK, CBC, BNP #### [facility] [address] [place] [address] [place] Performed By: #### H S TROP, LIPASE, PT, BMP, HEPATIC, CK, CBC, BNP ####[address] Glucose [Mass/Vol] 94 mg/dL Normal 70-100 [facility] Comment on above: Result Comment: [facility] Glucose Reference Range is dependent on time and content of last meal. Glucose of more than 200 mg/dL in a nonstressed, ambulatory subject supports the diagnosis of Diabetes Mellitus. ADA recommended reference range Performed By: #### H S TROP, LIPASE, PT, BMP, HEPATIC, CK, CBC, BNP #### [address] Performed By: #### H S TROP, LIPASE, PT, BMP, HEPATIC, CK, CBC, BNP ####[address] Potassium [Moles/Vol] 4.1 mmol/L Normal 3.5-5.1 [facility] Comment on above: Performed By: #### H S TROP, LIPASE, PT, BMP, HEPATIC, CK, CBC, BNP #### [address] Performed By: #### H S TROP, LIPASE, PT, BMP, HEPATIC, CK, CBC, BNP ####[address] Sodium [Moles/Vol] 137 mmol/L Normal 136-145 [facility] Comment on above: Performed By: #### H S TROP, LIPASE, PT, BMP, HEPATIC, CK, CBC, BNP #### [address] Performed By: #### H S TROP, LIPASE, PT, BMP, HEPATIC, CK, CBC, BNP ####[address] Urea nitrogen [Mass/Vol] 22 mg/dL Normal 7-25 [facility] Comment on above: Performed By: #### H S TROP, LIPASE, PT, BMP, HEPATIC, CK, CBC, BNP #### [address] [place] [address] [place] Performed By: #### H S TROP, LIPASE, PT, BMP, HEPATIC, CK, CBC, BNP ####[facility] I[address] Basophils Auto (Bld) [#/Vol] Ordered By: Lynnette Chapman on 08-18-2024 Basophils (Bld) [#/Vol] Automated basophil count 0.0-0.2 [facility] Basophils/100 WBC Auto (Bld) Ordered By: Lynnette Chapman on 08-18-2024 Basophils/100 WBC (Bld) Automated basophil % . [facility] Bilirubin.direct [Mass/volum e] in Serum or PlasmaOrdered By: Lynnette Chapman on 08-18-2024 Bilirubin.direct [Mass/Vol] Bilirubin.direct [Mass/volume] in Serum or Plasma 0.03-0.18 [facility] Bilirubin.total [Mass/volume ] in Serum or PlasmaOrdered By: Lynnette Chapman on 08-18-2024 Bilirubin [Mass/Vol] Bilirubin.total [Mass/volume] in Serum or Plasma 0.3-1.0 [facility] Calcium [Mass/volume] in Ser um or PlasmaOrdered By: Lynnette Chapman on 08-18-2024 Calcium [Mass/Vol] Calcium [Mass/volume ] in Serum or Plasma 8.6-10.3 [facility] Carbon dioxide, total [Moles /volume] in Serum or PlasmaOrdered By: Lynnette Chapmna on 08-18-2024 CO2 [Moles/Vol] Carbon dioxide, tota l [Moles/volume] in Serum or Plasma 21.0-31.0 [facility] Chloride [Moles/volume] in S nina or PlasmaOrdered By: Lynnette Chapman on 08-18-2024 Chloride [Moles/Vol] Chloride [Moles/vol ume] in Serum or Plasma 98-107 [facility] Complete Blood Count Auto Di ffon 08-18-2024 Basophils (Bld) [#/Vol] 0.0 10*3/uL Normal 0.0-0.2 [facility] Comment on above: Result Comment: PERF ORMED BY: [facility] [address] [place] [address] PATHOLOGIST HOT METAL CRANE OPERATOR JANA OLMEDO M.D. Performed By: #### H S TROP, LIPASE, PT, BMP, HEPATIC, CK, CBC, BNP #### [address] Basophils/100 WBC (Bld) 0.7 % Normal . [facility] Comment on above: Performed By: #### H S TROP, LIPASE, PT, BMP, HEPATIC, CK, CBC, BNP #### [address] Eosinophils (Bld) [#/Vol] 0.2 10*3/uL Normal 0.0-0.45 [facility] Comment on above: Performed By: #### H S TROP, LIPASE, PT, BMP, HEPATIC, CK, CBC, BNP #### [address] Eosinophils/100 WBC (Bld) 3.5 % Normal . [facility] Comment on above: Performed By: #### H S TROP, LIPASE, PT, BMP, HEPATIC, CK, CBC, BNP #### [address] Erythrocyte distribution width (RBC) [Ratio] 12.6 % Normal 11.9-15.3 [facility] Comment on above: Performed By: #### H S TROP, LIPASE, PT, BMP, HEPATIC, CK, CBC, BNP #### [address] Hematocrit (Bld) [Volume fraction] 43.7 % Normal 34.0-46.4 [facility] Comment on above: Performed By: #### H S TROP, LIPASE, PT, BMP, HEPATIC, CK, CBC, BNP #### [address] Hemoglobin (Bld) [Mass/Vol] 15.1 g/dL Normal 11.8-15.4 [facility] Comment on above: Performed By: #### H S TROP, LIPASE, PT, BMP, HEPATIC, CK, CBC, BNP #### [address] Lymphocytes (Bld) [#/Vol] 2.2 10*3/uL Normal 1.00-4.8 [facility] Comment on above: Performed By: #### H S TROP, LIPASE, PT, BMP, HEPATIC, CK, CBC, BNP #### [address] Lymphocytes/100 WBC (Bld) 36.5 % Normal . [facility] Comment on above: Performed By: #### H S TROP, LIPASE, PT, BMP, HEPATIC, CK, CBC, BNP #### [address] MCH (RBC) [Entitic mass] 30.7 pg Normal 24.7-34.3 [facility] Comment on above: Performed By: #### H S TROP, LIPASE, PT, BMP, HEPATIC, CK, CBC, BNP #### [address] MCV (RBC) [Entitic vol] 88.8 fL Normal 80-100 [facility] Comment on above: Performed By: #### H S TROP, LIPASE, PT, BMP, HEPATIC, CK, CBC, BNP #### [address] Mean Corpuscular HGB Conc 34.5 g/dL Normal 32.0-35.0 [facility] Comment on above: Performed By: #### H S TROP, LIPASE, PT, BMP, HEPATIC, CK, CBC, BNP #### [address] Monocytes (Bld) [#/Vol] 0.6 10*3/uL Normal 0.0-0.8 [facility] Comment on above: Performed By: #### H S TROP, LIPASE, PT, BMP, HEPATIC, CK, CBC, BNP #### [address] Monocytes/100 WBC (Bld) 16.97 % Normal 0.00-20.00 [facility] Comment on above: Performed By: #### H S TROP, LIPASE, PT, BMP, HEPATIC, CK, CBC, BNP #### [address] Monocytes/100 WBC (Bld) 10.5 % Normal . [facility] Comment on above: Performed By: #### H S TROP, LIPASE, PT, BMP, HEPATIC, CK, CBC, BNP #### [address] Neutrophils (Bld) [#/Vol] 3.0 10*3/uL Normal 1.8-7.7 [facility] Comment on above: Performed By: #### H S TROP, LIPASE, PT, BMP, HEPATIC, CK, CBC, BNP #### [address] Neutrophils/100 WBC (Bld) 48.8 % Normal . [facility] Comment on above: Performed By: #### H S TROP, LIPASE, PT, BMP, HEPATIC, CK, CBC, BNP #### [address] NRBC% 0.1 /100{WBC} Normal 0-0.5 [facility] Comment on above: Performed By: #### H S TROP, LIPASE, PT, BMP, HEPATIC, CK, CBC, BNP #### [address] Platelet mean volume (Bld) [Entitic vol] 7.9 fL Normal 6.3-10.7 [facility] Comment on above: Performed By: #### H S TROP, LIPASE, PT, BMP, HEPATIC, CK, CBC, BNP #### [address] Platelets (Bld) [#/Vol] 204 10*3/uL Normal 150-450 [facility] Comment on above: Performed By: #### H S TROP, LIPASE, PT, BMP, HEPATIC, CK, CBC, BNP #### [address] RBC (Bld) [#/Vol] 4.92 10*6/uL Normal 3.60-5.00 [facility] Comment on above: Performed By: #### H S TROP, LIPASE, PT, BMP, HEPATIC, CK, CBC, BNP #### [facility] [address] WBC (Bld) [#/Vol] 6.1 10*3/uL Normal 3.8-11.6 [facility] Comment on above: Performed By: #### H S TROP, LIPASE, PT, BMP, HEPATIC, CK, CBC, BNP #### [facility] [address] Creatine Kinaseon 08-18-2024 CK [Catalytic activity/Vol] 53 U/L Normal 30-223 [facility] Comment on above: Performed By: #### H S TROP, LIPASE, PT, BMP, HEPATIC, CK, CBC, BNP ####[facility] Creatine kinase [Enzymatic a ctivity/volume] in Serum or PlasmaOrdered By: Lynnette Chapman on 08-18-2024 CK [Catalytic activity/Vol] Creatine kinase [Enzymatic activity/volume] in Serum or Plasma 30-223 [facility] Creatinine [Mass/volume] in Serum or PlasmaOrdered By: Lynnette Chapman on 08-18-2024 Creatinine [Mass/Vol] Creatinine [Mass/v olume] in Serum or Plasma 0.60-1.20 [facility] ECG 12 lead ECGon 08-18-2024 ECG 12 lead ECG [facility] [address] Electrocardiograph Report Signed Patient: Jose Alberto Saleem MR#: [id number] : 1965 Acct:[id number] Age/Sex: 59 / F ADM Date: 08/18/24 Loc: ER Room: Type: [facility] ER Attending Dr: Ordering Provider: Lynnette [...] wave abnormality Confirmed by Lynnette Chapman MD ([id number]) on 08/18/2024 11:22:40 PM Referred By: Electronically Signed By: Lynnette Chapman MD Transcribed By: MUS Signed By Lynnette Chapman MD 08/01 05/24 4118 Normal [facility] Eosinophils Auto (Bld) [#/Vo l]Ordered By: Lynnette Chapman on 08-18-2024 Eosinophils (Bld) [#/Vol] Automated eosinophil count 0.0-0.45 [facility] Eosinophils/100 WBC Auto (Bl d)Ordered By: Lynnette Chapman on 08-18-2024 Eosinophils/100 WBC (Bld) Automated eosinophil % . [facility] Erythrocyte distribution wid th Auto (RBC) [Ratio]Ordered By: Lynnette Chapman on 08-18-2024 Erythrocyte distribution width (RBC) [Ratio] Erythrocyte distribution width [Ratio] by Automated count 11.9-15.3 [facility] Globulin Calc (S) [Mass/Vol] Ordered By: Lynnette Chapman on 08-18-2024 Globulin (S) [Mass/Vol] Serum globulin measurement by calculation (mass/volume) [facility] Glucose [Mass/volume] in Ser um or PlasmaOrdered By: Lynnette Chapman on 08-18-2024 Glucose [Mass/Vol] Glucose [Mass/volume ] in Serum or Plasma 70-100 [facility] Comment on above: ADA recommended refe rence rangeRandom Glucose Reference Range is dependent on time and content of last meal. Glucose of more than 200 mg/dL in a nonstressed, ambulatory subject supports the diagnosis of Diabetes Mellitus. Hematocrit Auto (Bld) [Volum e fraction]Ordered By: Lynnette Chapman on 08-18-2024 Hematocrit (Bld) [Volume fraction] Hematocrit [Volume Fraction] of Blood by Automated count 34.0-46.4 [facility] Hemoglobin [Mass/volume] in BloodOrdered By: Lynnette Chapman on 08-18-2024 Hemoglobin (Bld) [Mass/Vol] Hemoglobin [Mass/volume] in Blood 11.8-15.4 [facility] Hepatic Panelon 08-18-2024 Albumin [Mass/Vol] 4.3 g/dL Normal 3.5-5.7 [facility] Comment on above: Performed By: #### H S TROP, LIPASE, PT, BMP, HEPATIC, CK, CBC, BNP ####[address] Albumin/Globulin [Mass ratio] 1.7 {ratio} Normal [facility] Comment on above: Performed By: #### H S TROP, LIPASE, PT, BMP, HEPATIC, CK, CBC, BNP ####[address] ALP [Catalytic activity/Vol] 89 U/L Normal 34-104 [facility] Comment on above: Performed By: #### H S TROP, LIPASE, PT, BMP, HEPATIC, CK, CBC, BNP ####[address] ALT [Catalytic activity/Vol] 42 U/L Normal 7-52 [facility] Comment on above: Performed By: #### H S TROP, LIPASE, PT, BMP, HEPATIC, CK, CBC, BNP ####[address] AST [Catalytic activity/Vol] 31 U/L Normal 13-39 [facility] Comment on above: Performed By: #### H S TROP, LIPASE, PT, BMP, HEPATIC, CK, CBC, BNP ####[address] Bilirubin [Mass/Vol] 0.4 mg/dL Normal 0.3-1.0 [facility] Comment on above: Performed By: #### H S TROP, LIPASE, PT, BMP, HEPATIC, CK, CBC, BNP ####[address] Bilirubin,Indirect 0.3 mg/dL Normal [facility] Comment on above: Performed By: #### H S TROP, LIPASE, PT, BMP, HEPATIC, CK, CBC, BNP ####[address] [place] [address] [facility] Bilirubin.indirect [Mass/Vol] 0.10 mg/dL Normal 0.03-0.18 [facility] Comment on above: Performed By: #### H S TROP, LIPASE, PT, BMP, HEPATIC, CK, CBC, BNP ####[place] [address] [address] Globulin (S) [Mass/Vol] 2.6 g/dL Normal [facility] Comment on above: Performed By: #### H S TROP, LIPASE, PT, BMP, HEPATIC, CK, CBC, BNP ####[place] [address] [address] Protein [Mass/Vol] 6.9 g/dL Normal 6.4-8.9 [facility] Comment on above: Performed By: #### H S TROP, LIPASE, PT, BMP, HEPATIC, CK, CBC, BNP ####[address] INR in Platelet poor plasma by Coagulation assayOrdered By: Lynnette Chapman on 08-18-2024 INR Coag (PPP) [Relative time] INR in Platelet poor plasma by Coagulation assay [facility] Comment on above: INR Therapeutic Rang [...] erythrocytes in Blood by Automated coun 3.8-11.6 [facility] Lipaseon 08-18-2024 Lipase [Catalytic activity/Vol] 110.0 U/L High 11.0-82.0 [facility] Comment on above: Result Comment: PERF ORMED BY: [facility] [address] [place] [id number] PATHOLOGIST HOT METAL CRANE OPERATOR JANA OLMEDO M.D. Performed By: #### H S TROP, LIPASE, PT, BMP, HEPATIC, CK, CBC, BNP ####[facility] [address] [place] [id number] [facility] Lipase [Enzymatic activity/v olume] in Serum or PlasmaOrdered By: Lynnette Chapman on 08-18-2024 Lipase [Catalytic activity/Vol] Lipase [Enzymatic activity/volume] in Serum or Plasma High 11.0-82.0 [facility] Lymphocytes Auto (Bld) [#/Vo l]Ordered By: Lynnette Chapman on 08-18-2024 Lymphocytes (Bld) [#/Vol] Lymphocytes [#/volume] in Blood by Automated count 1.00-4.8 [facility] Lymphocytes/100 WBC Auto (Bl d)Ordered By: Lynnette Chapman on 08-18-2024 Lymphocytes/100 WBC (Bld) Lymphocytes/100 leukocytes in Blood by Automated count . [facility] MCH Auto (RBC) [Entitic mass ]Ordered By: Lynnette Chapman on 08-18-2024 MCH (RBC) [Entitic mass] MCH [Entitic mass] by Automated count 24.7-34.3 [facility] MCHC Auto (RBC) [Mass/Vol]Or dered By: Lynnette Chapman on 08-18-2024 MCHC (RBC) [Mass/Vol] MCHC [Mass/volume] by Automated count 32.0-35.0 [facility] MCV Auto (RBC) [Entitic vol] Ordered By: Lynnette Chapman on 08-18-2024 MCV (RBC) [Entitic vol] MCV [Entitic volume] by Automated count 80-100 [facility] Monocyte distribution width [Entitic volume] in Blood by AutomatedOrdered By: Lynnette Chapman on 08-18-2024 Monocyte distribution width Auto (Bld) [Entitic vol] Monocyte distribution width [Entitic volume] in Blood by Automated 0.00-20.00 [facility] Monocytes Auto (Bld) [#/Vol] Ordered By: Lynnette Chapman on 08-18-2024 Monocytes (Bld) [#/Vol] Automated blood monocyte count 0.0-0.8 [facility] Monocytes/100 WBC Auto (Bld) Ordered By: Lynnette Chapman on 08-18-2024 Monocytes/100 WBC (Bld) Automated monocyte % . [facility] Natriuretic peptide B [Mass/ Vol]Ordered By: Lynnette Chapman on 08-18-2024 Natriuretic peptide B (Bld) [Mass/Vol] BNP ser/plas 5-100 [facility] Neutrophils Auto (Bld) [#/Vo l]Ordered By: Lynnette Chapman on 08-18-2024 Neutrophils (Bld) [#/Vol] Neutrophils [#/volume] in Blood by Automated count 1.8-7.7 [facility] Neutrophils/100 WBC Auto (Bl d)Ordered By: Lynnette Chapman on 08-18-2024 Neutrophils/100 WBC (Bld) Automated neutrophil % . [facility] No Panel InformationOrdered By: Lynnette Chapman on 08-18-2024 Estimated GFR (CKD-EPI) > 60.0 mL/Min [facility] Creatinine Clearance (Chem 95.72 [facility] Nucleated erythrocytes [Pres ence] in Blood by Automated countOrdered By: Lynnette Chapman on 08-18-2024 Nucleated RBC Auto Ql (Bld) Nucleated erythrocytes [Presence] in Blood by Automated count 0-0.5 [facility] Platelet mean volume Auto (B ld) [Entitic vol]Ordered By: Lynnette Chapman on 08-18-2024 Platelet mean volume (Bld) [Entitic vol] Platelet mean volume [Entitic volume] in Blood by Automated count 6.3-10.7 [facility] Platelets Auto (Bld) [#/Vol] Ordered By: Lynnette Chapman on 08-18-2024 Platelets (Bld) [#/Vol] Platelets [#/volume] in Blood by Automated count 150-450 [facility] Potassium [Moles/volume] in Serum or PlasmaOrdered By: Lynnette Chapman on 08-18-2024 Potassium [Moles/Vol] Potassium [Moles/v olume] in Serum or Plasma 3.5-5.1 [facility] Protein [Mass/volume] in Ser um or PlasmaOrdered By: Lynnette Chapman on 08-18-2024 Protein [Mass/Vol] Protein [Mass/volume ] in Serum or Plasma 6.4-8.9 [facility] Prothrombin Time INRon 08-18 INR Coag (PPP) [Relative time] 1.0 {INR} Normal [facility] Comment on above: Result [...] heart valves: 3 - 4.5 PERFORMED BY: [place] [address] PATHOLOGIST HOT METAL CRANE OPERATOR JANA OLMEDO M.D. Performed By: #### H S TROP, LIPASE, PT, BMP, HEPATIC, CK, CBC, BNP #### [facility] [address] [place] [address] PT Coag (PPP) [Time] 11.7 s Normal 9.0-12.9 [facility] Comment on above: Result Comment: A he matocrit value greater than 55% may lead to inaccurate results in coagulation testing. Patients having hematocrit values >55% require a special collection tube for coagulation studies. Please contact the laboratory at [phone] for redraw instructions. Performed By: #### H S TROP, LIPASE, PT, BMP, HEPATIC, CK, CBC, BNP #### [facility] [address] [place] [address] Prothrombin time (PT)Ordered By: Lynnette Chapman on 08-18-2024 PT Coag (PPP) [Time] Prothrombin time (PT) 9.0- 12.9 [facility] Comment on above: A hematocrit value g reater than 55% may lead to inaccurate results in coagulation testing. Patients having hematocrit values >55% require a special collection tube for coagulation studies. Please contact the laboratory at [phone] for redraw instructions. RBC Auto (Bld) [#/Vol]Ordere d By: Lynnette Chapman on 08-18-2024 RBC (Bld) [#/Vol] Erythrocytes [#/volu me] in Blood by Automated count 3.60-5.00 [facility] Serum or plasma albumin/glob ulin mass ratioOrdered By: Lynnette Chapman on 08-18-2024 Albumin/Globulin [Mass ratio] Serum or plasma albumin/globulin mass ratio [facility] Serum or plasma anion gap de terminationOrdered By: Lynnette Chapman on 08-18-2024 Anion gap [Moles/Vol] Serum or plasma an ion gap determination 6.0-15.0 [facility] Serum or plasma non-glucuron idated bilirubin measurement (mass/volume)Ordered By: Lynnette Chapman on 08-18-2024 Bilirubin.indirect [Mass/Vol] Serum or plasma non-glucuronidated bilirubin measurement (mass/volume) [facility] Sodium [Moles/volume] in Ser um or PlasmaOrdered By: Lynnette Chapman on 08-18-2024 Sodium [Moles/Vol] Sodium [Moles/volume ] in Serum or Plasma 136-145 [facility] Troponin I High Sensitivityo n 08-18-2024 Troponin I High Sensitivity 4.7 pg/mL Normal 0.0-15.0 [facility] Comment on above: Result Comment: PERF ORMED BY: [facility] [address] [place] [address] PATHOLOGIST HOT METAL CRANE OPERATOR JANA OLMEDO M.D. Performed By: #### H S TROP ####[address] [address] [facility] Troponin I High Sensitivity 5.1 pg/mL Normal 0.0-15.0 [facility] Comment on above: Result Comment: PERF ORMED BY: [facility] [address] [place] [address] PATHOLOGIST HOT METAL CRANE OPERATOR JANA OLMEDO M.D. Performed By: #### H S TROP, LIPASE, PT, BMP, HEPATIC, CK, CBC, BNP ####[address] [address] [facility] Troponin I.cardiac [Mass/vol ume] in Serum or Plasma by Detection limit <= 0.01 ng/Ordered By: Lynnette Chapman on 08-18-2024 Troponin I.cardiac DL <= 0.01 ng/mL [Mass/Vol] Troponin I.cardiac [Mass/volume] in Serum or Plasma by Detection limit <= 0.01 ng/ 0.0-15.0 [facility] Urea nitrogen [Mass/volume] in Serum or PlasmaOrdered By: Lynnette Champan on 08-18-2024 Urea nitrogen [Mass/Vol] Urea nitrogen [Mass/volume] in Serum or Plasma 7-25 [facility] WBC Auto (Bld) [#/Vol]Ordere d By: Lynnette Chapman on 08-18-2024 WBC (Bld) [#/Vol] Leukocytes [#/volume ] in Blood by Automated count 3.8-11.6 [facility] XR chest 2V*on 08-18-2024 XR chest 2V* [facility] [address] XRay Report Signed Patient: Jose Alberto Saleem MR#: [id number] : 1965 Acct:[id number] Age/Sex: 59 / F ADM Date: 08/18/24 Loc: Room: [address] [place] [address] Type: ADM INOo Attending Dr: Donis Arroyo [...] Thelma Wick M.D.08/19/2024 12:10 AM Dictation Location: [place] [address] Transcribed By: [facility] 08/19/24 0010 Dictated By: Thelma Wikc MD 08/18/24 3652 Signed By: 08/19/24 0010 Normal [facility] Reminderson 08-05-2024 Reminders Reminders From: Magdalena Longoria To: EU - Administrative; Sent: 08/05/2024 13:08:24 EST Show up: 03/01/2025 13:08:00 EDT Subject: 1 yr reminder Due Date/Time: 08/01/2025 13:08:00 EDT Reminder/Recall Patient needs scheduled with [facility] for a 1 yr f/u with [facility] Normal [facility] Urology Office/Clinic Noteon 08-05-2024 Urology Office/Clinic Note [...] Myrbetriq from 25mg to 50mg qd Ordered: 85917 Measure Post Void residual urine and/or bladder capacity by US- non-imaging E&M of Est. Patient Moderate 30-39 Min 41687 Urnls Dip Stick Auto w/o Microscopy POC 42283 2. Urethral pain (R39.89: Other symptoms and [...] day(s), # 90 tab(s), Refills(s) 3, Pharmacy: [facility] [id number], 160, cm, 08/05/24 11:29:00 EST, Height/Length Dosing, 74.2, kg, 08/05/24 11:29:00 EST, Weight Dosing tamsulosin, 0.4 mg = 1 cap(s), Oral, Daily, # 90 cap(s), Refills(s) 3, Pharmacy: [facility], 160, cm, 08/05/24 11:29:00 EST, Height/Length Dosing, 74.2, kg, 08/05/24 11:29:00 EST, Weight Dosing Follow-up With When Contact Information JENNIFER MARTINO PA-C, URL Within 1 year Additional Instructions: Patient Education Kidney Stones, [id number] Problem List/Past Medical History Ongoing Anticoagulated Feeling (more content not included)... Normal [facility] Comment on above: Result Comment: Elec tronically [...] wk f/u. Appointment due by 06/19/2024 in [place] with [facility] PT SCHEDULED JUL 03, 2024 Normal [facility] Office/Clinic Noteon 04-10-2024 Urology Office/Clinic Note [...] E&M of Est. Patient High 40-54 Min 72824 Urnls Dip Stick Auto w/o Microscopy POC 36447 2. OAB (overactive bladder) (N32.81: Overactive bladder) [...] E&M of Est. Patient High 40-54 Min 55536 3. Urethral pain (R39.89: Other symptoms and [...] E&M of Est. Patient High 40-54 Min 52404 Orders: estradiol topical, See Instructions, 42.5 gm, Refill(s) 6, apply a pea-sized amount vaginally and around the urethra nightly x 3 weeks, then 3x per week thereafter, [facility] #[id number], 160, cm, 04/10/24 15:13:00 EDT, Height/Length Dosing, 74, kg, 04/10/24 15:13... mirabegron, 25 mg = 1 tab(s), Oral, Daily, do not fill both mirabegron AND vibegron. only fill whichever has lower co-pay., X 30 day(s), # 30 tab(s), Refills(s) 11, Pharmacy: [facility] #[id number], 160, cm, 04/10/24 15:13:00 EDT, Height/Length Dosing, 74, k... vibegron, 75 mg = 1 tab(s), Oral, Daily, X 30 day(s), # 30 tab(s), Refills(s) 11, Pharmacy: [facility] #[id number], 160, cm, 04/10/24 15:13:00 EDT, Height/Length Dosing, 74, kg, 04/10/24 15:13:00 EDT, Weight Dosing Total time spent reviewing previous notes/results/external documents, preparing the chart, conducting the encounter with the patient and family, ordering tests/medications, and documenting the encounter was 40 minutes. Follow-up With When Contact Information JENNIFER MARTINO PA-C, URL Within 3 months [address] [place] [address] Additional Instructions: Patient Education Kidney Stones, [id number] Problem List/Past Medical History Ongoing Anticoagulated Feeling of incomplete b (more content not included)... Normal [facility] Comment on above: Result Comment: Elec tronically Signed By: JENNIFER MARTINO PA-C\.br\Date and Time Signed: 04/10/24 16:09 EDT Glucose Glucometer (BldC) [M ass/Vol]on 03-06-2024 Glucose [Mass/Vol] 79 mg/dL Normal 65-99 [facility] Lab Reportson 01-23-2024 Lab Reports [id number] Normal [facility] Lab Reports [id number]#1.00TIFF Normal [facility] Lab Reportson 01-22-2024 Lab Reports [id number]#1.00TIFF Normal [facility] Lab Reports [id number] Normal [facility] Reports [id number]#1.00TIFF Normal [facility] RAD - MISCon 01-22-2024 RAD - MISC [id number]#1.00TIFF Normal [facility] Surgical Pathology Reporton 06-18-2023 Surgical Pathology Report (NOTE) Path Number: [id number] -- Diagnosis -- ENDOMETRIAL CURETTINGS: -BENIGN ENDOMETRIAL [...] Microscopic Description Microscopic examination performed. Processing Lab: [facility] [address] [place] [id number] Interpretation Performed at [facility] [address] [place], [place] SURGICAL PATHOLOGY CONSULTATION Patient Name: JOSE ALBERTO SALEEM [facility] Rec: [id number] [facility] ANATOMIC PATHOLOGY [address] [place] [address]. [place], [place] [address] [facility] NON OB TRANSVAGINALon US NON OB [...] Gaby Tello DO 06/05/23 Final result Normal [facility] Ceruloplasminon 12-12-2022 Ceruloplasmin 30.6 mg/dL 19.0-39.0 mg/dL [email or web address] Other Ferritinon 12-12-2022 Ferritin [Mass/Vol] 43.8382218 ng/mL Normal 11.0 -306.8 ng/mL [email or web address] Other Hepatitis A Antibody Totalon 12-12-2022 Hepatitis A Antibody Total Negative . [email or web address] Other Hepatitis B Surface Antibody on 12-12-2022 Hepatitis B Surface Antibody Non-Reactive Non Reactive [email or web address] Other Immunoglobulin Javi Immunoglobulin G 823 mg/dL 586-1602 mg/dL [email or web address] Other Liver-Kidney Microsomal Abon 12-12-2022 Liver-Kidney Microsomal Ab 1.1 0.0-20.0 [email or web address] Other Mitochondrial (M2) Antibodyo n 12-12-2022 Mitochondrial (M2) Antibody <20.0 0.0-20.0 [place] [employer] Other Smooth Muscle Antibodyon Smooth Muscle Antibody 5 0-19 No rt [employer] Other MR MRCPon 11-10-2022 MR MRCP [facility] [employer] Other MR MRCP [facility] [employer] Other MR MRCP 1111 [facility] [employer] [place] [address] [facility] [employer] Other MR MRCP MRI Report [facility] [employer] Other MR MRCP Signed [place] [employer] Other MR MRCP Patient: Danika Saleem MR#: [id number] [facility] [employer] Other MR MRCP 571 [facility] [employer] Other MR MRCP : 1965 Acct:[id number] [email or web address] Other MR MRCP Age/Sex: 57 / F ADM Date: 11/10/22 [email or web address] Other MR MRCP Loc: MR Room: Type: [facility] [email or web address] Other MR MRCP Attending Dr: Evert salinas MD [email or web address] Other MR MRCP Copies to: Evert Bruno MD [email or web address] Other MR MRCP Ordering Provider: Marleny Bruno MD [email or web address] Other MR MRCP Date of Service: 11/10/22 [email or web address] Other MR MRCP MR/MR MRCP: Abdominal pain;Common bile duct dilatation;Elevated liver en [email or web address] Other MR MRCP MRCP [facility] [employer] Other MR MRCP CLINICAL DATA: [place] hayley lipase. Abnormal outside abdominal CT [email or web address] Other MR MRCP COMPARISON: CT abdom en 10/16/2022 [place] [employer] Other MR MRCP Multiecho imaging of the abdomen was performed along with radial imaging of the biliary tree. [email or web address] Other MR MRCP The gallbladder surgically absent. There is no significant intrahepatic biliary dilatation. The [email or web address] Other MR MRCP common duct is sligh tly prominent measuring up to 6 mm. It tapers toward the ampulla. No in [email or web address] Other MR MRCP traluminal filling defects are identified to suggest choledocholithiasis. The pancreatic duct is [email or web address] Other MR MRCP also borderline prom inent measuring 2 - 3 mm. No intrahepatic masses are identified. No pancreatic [email or web address] Other MR MRCP abnormalities are no hayley. The spleen and adrenal glands are within normal limits. There is no [email or web address] Other MR MRCP hydronephrosis. Ther e are right renal cysts. There is no aortic aneurysm. No adenopathy or [email or web address] Other MR MRCP ascites is seen. The re is no dilated bowel within the [id number]. [email or web address] Other MR MRCP M R/MR MRCP [email or web address] Other MR MRCP IMPRESSION: [email or web address] Other MR MRCP SLIGHTLY PROMINENT C OMMON DUCT, WITHOUT CHOLEDOCHOLITHIASIS. THIS MAY RELATE TO PREVIOUS [email or web address] Other MR MRCP CHOLECYSTECTOMY. [facility] [employer] Other MR MRCP RIGHT RENAL CYSTS. [email or web address] Other MR MRCP NO OTHER SIGNIFICANT MRI FINDINGS. [email or web address] Other MR MRCP Impression dictated by: Thelma Wick M.D.11/10/2022 7:00 PM [email or web address] Other MR MRCP Dictation Location: [place] [address] [email or web address] Other MR MRCP Transcribed By: PWS 11/10/221899 [email or web address] Other MR MRCP Dictated By: Thelma Wick MD 11/10/221849 [email or web address] Other MR MRCP Signed By: [email or web address] Other MR MRCP 11/10/221899 [email or web address] Other Albumin [Mass/volume] in Ser um or PlasmaOrdered By: Evert Bruno on 11-01-2022 Albumin [Mass/Vol] 4.0 g/dL 3.2-5.5 [facility] Direct bilirubin measurement Ordered By: Imsara Bruno on 11-01-2022 Bilirubin.direct [Mass/Vol] 0.1 mg/dL 0.0-0.4 [facility] Globulin Calc (S) [Mass/Vol] Ordered By: Imsara Bruno on 11-01-2022 Globulin (S) [Mass/Vol] 2.5 g/dL [facility] Hepatic Panelon 11-01-2022 Albumin [Mass/Vol] 4.383447 g/dL Normal 3.2-5.5 g/dL [email or web address] Other ALT [Catalytic activity/Vol] 94 U/L High 10-60 U/L [email or web address] Other Bilirubin [Mass/Vol] 0.7495885 mg/dL Normal 0.3- 1.2 mg/dL [email or web address] Other Bilirubin.indirect [Mass/Vol] 0.9271064 mg/dL Normal 0.0-0.4 mg/dL [email or web address] Other Protein [Mass/Vol] 6.261121 g/dL Normal 6.1-7.9 g/dL [email or web address] Other Hepatic Panel 0.5 mg/dL [email or web address] Other Hepatic Panel 2.5 g/dL [email or web address] Other Protein [Mass/volume] in Ser um or PlasmaOrdered By: Evert Bruno on 11-01-2022 Protein [Mass/Vol] 6.5 g/dL 6.1-7.9 [facility] Serum or plasma alanine li otransferase measurement without P-5'-P (enzymatic activiOrdered By: Evert Bruno on 11-01-2022 ALT No additional P-5'-P [Catalytic activity/Vol] 94 U/L 10-60 [facility] Serum or plasma albumin/glob ulin mass ratioOrdered By: Evert Bruno on 11-01-2022 Albumin/Globulin [Mass ratio] 1.6 {ratio} [facility] Serum or plasma alkaline monster sphatase measurement (enzymatic activity/volume)Ordered By: Evert Bruno on 11-01-2022 ALP [Catalytic activity/Vol] 93 U/L 32-92 [facility] Serum or plasma aspartate am inotransferase measurement (enzymatic activity/volume)Ordered By: Evert Bruno on 11-01-2022 AST [Catalytic activity/Vol] 66 U/L 10-42 [facility] Serum or plasma non-glucuron idated bilirubin measurement (mass/volume)Ordered By: Evert Bruno on 11-01-2022 Bilirubin.indirect [Mass/Vol] 0.5 mg/dL [facility] Serum or plasma total biliru bin measurement (mass/volume)Ordered By: Evert Bruno on 11-01-2022 Bilirubin [Mass/Vol] 0.6 mg/dL 0.3-1.2 [facility] CT ABDOMEN WO/W CONon 2022 CT ABDOMEN [...] JAE WILSON Date: 2022-10-17 08:23 Normal [facility] AMMONIAon 10-09-2022 Ammonia (P) [Moles/Vol] 10 umol/L Critically low 11-32 [facility] Comment on above: Performed By: #### A MY #### [facility] [address] [place] [address] Dr. Ayden Cam AMYLASEon 10-09-2022 Amylase [Catalytic activity/Vol] 144 U/L Critically high 25-115 [facility] Comment on above: Performed By: #### L IPA #### [facility] [address] [place] [address] Dr. Ayden Cam CBC AUTO DIFFon 10-09-2022 BASO # 0.0 103/ul Normal 0.0-0.1 [facility] Comment on above: Performed By: #### C BC #### [facility] [address] [place] [address] Dr. Ayden Cam Basophils/100 WBC (Bld) 0.2 % Normal 0.2-2.0 [facility] Comment on above: Performed By: #### C BC #### [facility] [address] [place] [address] Dr. Ayden Cam EO # 0.2 103/ul Normal 0.0-0.7 [facility] Comment on above: Performed By: #### C BC #### [facility] [address] [place] [address] Dr. Ayden Cam Eosinophils/100 WBC (Bld) 3.3 % Normal 0.9-7.0 [facility] Comment on above: Performed By: #### C BC #### [facility] [address] [place] [address] Dr. Ayden Cma Erythrocyte distribution width (RBC) [Ratio] 12.1 % Normal 11.0-15.0 [facility] Comment on above: Performed By: #### C BC #### [facility] [address] [place] [address] Dr. Ayden Cam Hematocrit (Bld) [Volume fraction] 40.0 % Normal 36.0-48.0 [facility] Comment on above: Performed By: #### C BC #### [facility] [address] [place] [address] Dr. Ayden Cam Hemoglobin (Bld) [Mass/Vol] 14.2 g/dL Normal 12.0-16.0 [facility] Comment on above: Performed By: #### C BC #### [facility] [address] [place] [address] Dr. Ayden Cam IG # 0.01 10e3/ul Normal 0.00-0.03 [facility] Comment on above: Performed By: #### C BC #### [facility] [address] [place] [address] Dr. Ayden Cam IG % 0.2 % Normal 0.0-0.5 [facility] Comment on above: Performed By: #### C BC #### [facility] [address] [place] [address] Dr. Adyen aCm LYMPH # 1.5 103/ul Normal 1.2-3.8 [facility] Comment on above: Performed By: #### C BC #### [facility] [address] [place] [address] Dr. Ayden Cam Lymphocytes/100 WBC (Bld) 24.2 % Normal 20.5-60.0 [facility] Comment on above: Performed By: #### C BC #### [facility] [address] [place] [address] Dr. Ayden Cam MANUAL DIFF REQ NO Normal [facility] Comment on above: Performed By: #### C BC #### [facility] [address] [place] [address] Dr. Ayden Cam MCH (RBC) [Entitic mass] 30.0 pg Normal 26.7-34.0 [facility] Comment on above: Performed By: #### C BC #### [facility] [address] [place] [address] Dr. Ayden Cam MCHC (RBC) [Mass/Vol] 35.5 g/dL Critically high 29.9-35.2 [facility] Comment on above: Performed By: #### C BC #### [facility] [address] [place] [address] Dr. Ayden Cam MCV (RBC) [Entitic vol] 84.4 fL Normal 81.0-99.0 [facility] Comment on above: Performed By: #### C BC #### [facility] [address] [place] [address] Dr. Ayden Cam MONO # 0.6 103/ul Normal 0.3-0.8 [facility] Comment on above: Performed By: #### C BC #### [facility] [address] [place] [address] Dr. Ayden Cam Monocytes/100 WBC (Bld) 10.3 % Normal 1.7-12.0 [facility] Comment on above: Performed By: #### C BC #### [facility] [address] [place] [address] Dr. Ayden Cam NEUT # 3.7 103/ul Normal 1.4-6.5 [facility] Comment on above: Performed By: #### C BC #### [facility] [address] [address] [address] Ayden Cam Neutrophils/100 WBC (Bld) 61.8 % Normal 43.0-75.0 [facility] Comment on above: Performed By: #### C BC #### [facility] [address] [place] [address] Dr. Ayden Cam Platelet mean volume (Bld) [Entitic vol] 9.0 fL Critically low 9.5-13.5 [facility] Comment on above: Performed By: #### C BC #### [facility] [address] [place] [address] [address] Ayden Cam PLT 191 103/ul Normal 150-450 [facility] Comment on above: Performed By: #### C BC #### [facility] [address] [place] [address] Dr. Ayden Cam RBC 4.74 106/ul Normal 4.20-5.40 [facility] Comment on above: Performed By: #### C BC #### [facility] [address] [place] [address] Dr. Ayden Cam WBC 6.0 103/ul Normal 4.0-11.0 [facility] Comment on above: Performed By: #### C BC #### [facility] [address] [place] [address] Dr. Ayden Cam LIPASEon 10-09-2022 Lipase [Catalytic activity/Vol] 168.0 U/L Normal 73.0-393.0 [facility] Comment on above: Performed By: #### L ACT #### [facility] [address] [place] [address] Dr. Ayden Cam PROF 14(COMP METB)on 023 Albumin [Mass/Vol] 3.6 g/dL Normal 3.4-5.0 [facility] Comment on above: Performed By: #### L IPA #### [facility] [address] [place] [address] Dr. Ayden Cam Albumin/Globulin [Mass ratio] 1.1 {ratio} Normal [facility] Comment on above: Performed By: #### L IPA #### [facility] [address] [place] [address] Dr. Ayden Cam ALP [Catalytic activity/Vol] 93 U/L Normal 46-116 [facility] Comment on above: Performed By: #### L IPA #### [facility] [address] [place] [address] [address] Ayden Cam ALT [Catalytic activity/Vol] 52 U/L Normal 14-59 [facility] Comment on above: Performed By: #### L IPA #### [facility] [address] [place] [address] Dr. Ayden Cam Anion gap [Moles/Vol] 10.2 mmol/L Normal [facility] Comment on above: Performed By: #### L IPA #### [facility] [address] [place] [address] Dr. Ayden Cam AST [Catalytic activity/Vol] 33 U/L Normal 15-37 [facility] Comment on above: Performed By: #### L IPA #### [facility] [address] [place] [address] Dr. Ayden Cam Bilirubin [Mass/Vol] 0.3 mg/dL Normal 0.2-1.0 [facility] Comment on above: Performed By: #### L IPA #### [facility] [address] [place] [address] Dr. Ayden Cam Calcium [Mass/Vol] 9.4 mg/dL Normal 8.5-10.1 [facility] Comment on above: Performed By: #### L IPA #### [facility] [address] [place] [address] Dr. Ayden Cam Chloride [Moles/Vol] 99 mmol/L Normal 98-107 [facility] Comment on above: Performed By: #### L IPA #### [facility] [address] [place] [address] Dr. Ayden Cam CO2 [Moles/Vol] 33.7 mmol/L Critically high 21.0-32.0 [facility] Comment on above: Performed By: #### L IPA #### [facility] [address] [place] [address] Dr. Ayden Cam Creatinine [Mass/Vol] 0.62 mg/dL Normal 0.55-1.02 [facility] Comment on above: Performed By: #### L IPA #### [facility] [address] [place] [address] Dr. Ayden Cam EGFR-AF LAO >60 Normal >=60 [facility] Comment on above: Performed By: #### L IPA #### [facility] [address] [address] [address] Ayden Cam EGFR-NON AF LAO >60 Normal >=60 [facility] Comment on above: Performed By: #### L IPA #### [facility] [address] [place] [address] Dr. Ayden Cam Globulin (S) [Mass/Vol] 3.4 g/dL Normal [facility] Comment on above: Performed By: #### L IPA #### [facility] [address] [place] [address] Dr. Ayden Cam Glucose [Mass/Vol] 105 mg/dL Normal 74-106 [facility] Comment on above: Performed By: #### L IPA #### [facility] [address] [place] [address] Dr. Ayden Cam Potassium [Moles/Vol] 3.9 mmol/L Normal 3.5-5.1 [facility] Comment on above: Performed By: #### L IPA #### [facility] [address] [place] [address] Dr. Ayden Cam Protein [Mass/Vol] 7.0 g/dL Normal 6.4-8.2 [facility] Comment on above: Performed By: #### L IPA #### [facility] [address] [address] [address] Ayden Cam Sodium [Moles/Vol] 139 mmol/L Normal 136-145 [facility] Comment on above: Performed By: #### L IPA #### [facility] [address] [place] [address] Dr. Ayden Cam Urea nitrogen [Mass/Vol] 28.0 mg/dL Critically high 7.0-18.0 [facility] Comment on above: Performed By: #### L IPA #### [facility] [address] [place] [address] Dr. Ayden Cam Urea nitrogen/Creatinine [Mass ratio] 45.2 mg/mg Normal [facility] Comment on above: Performed By: #### L IPA #### [facility] [address] [place] [address] Dr. Ayden Cam AMMONIAon 10-06-2022 Ammonia (P) [Moles/Vol] 16 umol/L Normal 11-32 [facility] Comment on above: Performed By: #### A MM #### [facility] [address] [place] [address] Dr. Ayden Cam AMYLASEon 10-06-2022 Amylase [Catalytic activity/Vol] 189 U/L Critically high 25-115 [facility] Comment on above: Performed By: #### L IPA #### [facility] [address] [place] [address] Dr. Ayden Cam CBC AUTO DIFFon 10-06-2022 BASO # 0.0 103/ul Normal 0.0-0.1 [facility] Comment on above: Performed By: #### C BC #### [facility] [address] [place] [address] Dr. Ayden Cam Basophils/100 WBC (Bld) 0.2 % Normal 0.2-2.0 [facility] Comment on above: Performed By: #### C BC #### [facility] [address] [place] [address] Dr. Ayden Cam EO # 0.3 103/ul Normal 0.0-0.7 [facility] Comment on above: Performed By: #### C BC #### [facility] [address] [place] [address] Dr. Ayden Cam Eosinophils/100 WBC (Bld) 5.2 % Normal 0.9-7.0 [facility] Comment on above: Performed By: #### C BC #### [facility] [address] [place] [address] Dr. Ayden Cam Erythrocyte distribution width (RBC) [Ratio] 12.3 % Normal 11.0-15.0 [facility] Comment on above: Performed By: #### C BC #### [facility] [address] [place] [address] Dr. Ayden Cam Hematocrit (Bld) [Volume fraction] 36.9 % Normal 36.0-48.0 [facility] Comment on above: Performed By: #### C BC #### [facility] [address] [place] [address] Dr. Ayden Cam Hemoglobin (Bld) [Mass/Vol] 12.4 g/dL Normal 12.0-16.0 [facility] Comment on above: Performed By: #### C BC #### [facility] [address] [place] [address] Dr. Ayden Cam IG # 0.01 10e3/ul Normal 0.00-0.03 [facility] Comment on above: Performed By: #### C BC #### [facility] [address] [place] [address] Dr. Ayden Cam IG % 0.2 % Normal 0.0-0.5 [facility] Comment on above: Performed By: #### C BC #### [facility] [address] [place] [address] Dr. Ayden Cam LYMPH # 1.8 103/ul Normal 1.2-3.8 [facility] Comment on above: Performed By: #### C BC #### [facility] [address] [place] [address] Dr. Ayden Cam Lymphocytes/100 WBC (Bld) 31.3 % Normal 20.5-60.0 [facility] Comment on above: Performed By: #### C BC #### [facility] [address] [place] [address] Dr. Ayden Cam MANUAL DIFF REQ NO Normal [facility] Comment on above: Performed By: #### C BC #### [facility] [address] [place] [address] Dr. Ayden Cam MCH (RBC) [Entitic mass] 30.0 pg Normal 26.7-34.0 [facility] Comment on above: Performed By: #### C BC #### [facility] [address] [address] [address] Ayden Cam MCHC (RBC) [Mass/Vol] 33.6 g/dL Normal 29.9-35.2 [facility] Comment on above: Performed By: #### C BC #### [facility] [address] [address] [address] Ayden Cam MCV (RBC) [Entitic vol] 89.1 fL Normal 81.0-99.0 [facility] Comment on above: Performed By: #### C BC #### [facility] [address] [place] [address] Dr. Ayden Cam MONO # 0.6 103/ul Normal 0.3-0.8 [facility] Comment on above: Performed By: #### C BC #### [facility] [address] [place] [address] Dr. Ayden Cam Monocytes/100 WBC (Bld) 10.1 % Normal 1.7-12.0 [facility] Comment on above: Performed By: #### C BC #### [facility] [address] [place] [address] Dr. Ayden Cam NEUT # 3.1 103/ul Normal 1.4-6.5 [facility] Comment on above: Performed By: #### C BC #### [facility] [address] [place] [address] Dr. Ayden Cam Neutrophils/100 WBC (Bld) 53.0 % Normal 43.0-75.0 [facility] Comment on above: Performed By: #### C BC #### [facility] [address] [place] [address] Dr. Ayden Cam Platelet mean volume (Bld) [Entitic vol] 9.4 fL Critically low 9.5-13.5 [facility] Comment on above: Performed By: #### C BC #### [facility] [address] [place] [address] Dr. Ayden Cam PLT 153 103/ul Normal 150-450 [facility] Comment on above: Performed By: #### C BC #### [facility] [address] [address] [address] Ayden Cam RBC 4.14 106/ul Critically low 4.20-5.40 [facility] Comment on above: Performed By: #### C BC #### [facility] [address] [place] [address] Dr. Ayden Cam WBC 5.8 103/ul Normal 4.0-11.0 [facility] Comment on above: Performed By: #### C BC #### [facility] [address] [place] [address] Dr. Ayden Cam LIPASEon 10-06-2022 Lipase [Catalytic activity/Vol] 166.0 U/L Normal 73.0-393.0 [facility] Comment on above: Performed By: #### L IPA #### [facility] [address] [place] [address] Dr. Ayden Cam LIVER PROFILEon 10-06-2022 Albumin [Mass/Vol] 3.2 g/dL Critically low 3.4-5.0 [facility] Comment on above: Performed By: #### L IPA #### [facility] [address] [place] [address] Dr. Ayden Cam Albumin/Globulin [Mass ratio] 1.3 {ratio} Normal [facility] Comment on above: Performed By: #### L IPA #### [facility] [address] [place] [address] Dr. Ayden Cam ALP [Catalytic activity/Vol] 88 U/L Normal 46-116 [facility] Comment on above: Performed By: #### L IPA #### [facility] [address] [place] [address] Dr. Ayden Cam ALT [Catalytic activity/Vol] 66 U/L Critically high 14-59 [facility] Comment on above: Performed By: #### L IPA #### [facility] [address] [place] [address] Dr. Ayden Cam AST [Catalytic activity/Vol] 39 U/L Critically high 15-37 [facility] Comment on above: Performed By: #### L IPA #### [facility] [address] [address] [address] Ayden Cam BILI, CONJUGATED 0.1 mg/dL Normal 0.0-0.2 [facility] Comment on above: Performed By: #### L IPA #### [facility] [address] [address] [address] Ayden Cam Bilirubin [Mass/Vol] 0.4 mg/dL Normal 0.2-1.0 [facility] Comment on above: Performed By: #### L IPA #### [facility] [address] [address] [address] Ayden Cam Globulin (S) [Mass/Vol] 2.4 g/dL Normal [facility] Comment on above: Performed By: #### L IPA #### [facility] [address] [place] [address] Dr. Ayden Cam Protein [Mass/Vol] 5.6 g/dL Critically low 6.4-8.2 [facility] Comment on above: Performed By: #### L IPA #### [facility] [address] [address] [address] Ayden Cam PROF CHEM 8 (BAS METB)on Anion gap [Moles/Vol] 6.8 mmol/L Normal [facility] Comment on above: Performed By: #### L IPA #### [facility] [address] [address] [address] Ayden Cam Calcium [Mass/Vol] 8.6 mg/dL Normal 8.5-10.1 [facility] Comment on above: Performed By: #### L IPA #### [facility] [address] [address] [address] Ayden Cam Chloride [Moles/Vol] 102 mmol/L Normal 98-107 [facility] Comment on above: Performed By: #### L IPA #### [facility] [address] [address] [address] Ayden Cam CO2 [Moles/Vol] 32.6 mmol/L Critically high 21.0-32.0 [facility] Comment on above: Performed By: #### L IPA #### [facility] [address] [address] [address] Ayden Cam Creatinine [Mass/Vol] 0.61 mg/dL Normal 0.55-1.02 [facility] Comment on above: Performed By: #### L IPA #### [facility] [address] [address] [address] Ayden Cam EGFR-AF LAO >60 Normal >=60 [facility] Comment on above: Performed By: #### L IPA #### [facility] [address] [address] [address] Ayden Cam EGFR-NON AF LAO >60 Normal >=60 [facility] [facility] Comment [facility] above: Performed By: #### L IPA #### [facility] [address] [address] [address] Ayden Cam Glucose [Mass/Vol] 91 mg/dL Normal 74-106 [facility] Comment on above: Performed By: #### L IPA #### [facility] [address] [address] [address] Ayden Cam Potassium [Moles/Vol] 3.4 mmol/L Critically low 3.5-5.1 [facility] Comment on above: Performed By: #### L IPA #### [facility] [address] [place] [address] Dr. Ayden Cam Sodium [Moles/Vol] 138 mmol/L Normal 136-145 [facility] Comment on above: Performed By: #### L IPA #### [facility] [address] [address] [address] Ayden Cam Urea nitrogen [Mass/Vol] 13.0 mg/dL Normal 7.0-18.0 [facility] Comment on above: Performed By: #### L IPA #### [facility] [address] [address] [address] Ayden Cam Urea nitrogen/Creatinine [Mass ratio] 21.3 mg/mg Normal [facility] Comment on above: Performed By: #### L IPA #### [facility] [address] [place] [address] Dr. Ayden Cam AMMONIAon 10-05-2022 Ammonia (P) [Moles/Vol] 10 umol/L Critically low 11-32 [facility] Comment on above: Performed By: #### A MM #### [facility] [address] [place] [address] Dr. Ayden Cam AMYLASEon 10-05-2022 Amylase [Catalytic activity/Vol] 109 U/L Normal 25-115 [facility] Comment on above: Performed By: #### A MY #### [facility] [address] [place] [address] Dr. Ayden Cam CBC AUTO DIFFon 10-05-2022 BASO # 0.0 103/ul Normal 0.0-0.1 [facility] Comment on above: Performed By: #### L IPA #### [facility] [address] [place] [address] Dr. Ayden Cam Basophils/100 WBC (Bld) 0.3 % Normal 0.2-2.0 [facility] Comment on above: Performed By: #### L IPA #### [facility] [address] [place] [address] Dr. Ayden Cam EO # 0.3 103/ul Normal 0.0-0.7 [facility] Comment on above: Performed By: #### L IPA #### [facility] [address] [place] [address] Dr. Ayden Cam Eosinophils/100 WBC (Bld) 4.3 % Normal 0.9-7.0 [facility] Comment on above: Performed By: #### L IPA #### [facility] [address] [place] [address] Dr. Ayden Cam Erythrocyte distribution width (RBC) [Ratio] 12.2 % Normal 11.0-15.0 [facility] Comment on above: Performed By: #### L IPA #### [facility] [address] [place] [address] Dr. Ayden Cam Hematocrit (Bld) [Volume fraction] 38.9 % Normal 36.0-48.0 [facility] Comment on above: Performed By: #### L IPA #### [facility] [address] [address] [address] Ayden Cam Hemoglobin (Bld) [Mass/Vol] 12.8 g/dL Normal 12.0-16.0 [facility] Comment on above: Performed By: #### L IPA #### [facility] [address] [address] [address] Ayden Cam IG # 0.01 10e3/ul Normal 0.00-0.03 [facility] Comment on above: Performed By: #### L IPA #### [facility] [address] [place] [address] Dr. Ayden Cam IG % 0.2 % Normal 0.0-0.5 [facility] Comment on above: Performed By: #### L IPA #### [facility] [address] [place] [address] Dr. Ayden Cam LYMPH # 1.9 103/ul Normal 1.2-3.8 [facility] Comment on above: Performed By: #### L IPA #### [facility] [address] [place] [address] Dr. Ayden Cam Lymphocytes/100 WBC (Bld) 31.4 % Normal 20.5-60.0 [facility] Comment on above: Performed By: #### L IPA #### [facility] [address] [place] [address] Dr. Ayden Cam MANUAL DIFF REQ NO Normal [facility] Comment on above: Performed By: #### L IPA #### [facility] [address] [place] [address] Dr. Ayden Cam MCH (RBC) [Entitic mass] 29.6 pg Normal 26.7-34.0 [facility] Comment on above: Performed By: #### L IPA #### [facility] [address] [place] [address] Dr. Ayden Cam MCHC (RBC) [Mass/Vol] 32.9 g/dL Normal 29.9-35.2 [facility] Comment on above: Performed By: #### L IPA #### [facility] [address] [address] [address] Ayden Cam MCV (RBC) [Entitic vol] 89.8 fL Normal 81.0-99.0 [facility] Comment on above: Performed By: #### L IPA #### [facility] [address] [address] [address] Ayden Cam MONO # 0.6 103/ul Normal 0.3-0.8 [facility] Comment on above: Performed By: #### L IPA #### [facility] [address] [address] [address] Ayden Cam Monocytes/100 WBC (Bld) 10.1 % Normal 1.7-12.0 [facility] Comment on above: Performed By: #### L IPA #### [facility] [address] [place] [address] Dr. Ayden Cam NEUT # 3.2 103/ul Normal 1.4-6.5 [facility] Comment on above: Performed By: #### L IPA #### [facility] [address] [place] [address] Dr. Ayden Cam Neutrophils/100 WBC (Bld) 53.7 % Normal 43.0-75.0 [facility] Comment on above: Performed By: #### L IPA #### [facility] [address] [place] [address] Dr. Ayden Cam Platelet mean volume (Bld) [Entitic vol] 9.7 fL Normal 9.5-13.5 [facility] Comment on above: Performed By: #### L IPA #### [facility] [address] [place] [address] Dr. Ayden Cam PLT 168 103/ul Normal 150-450 [facility] Comment on above: Performed By: #### L IPA #### [facility] [address] [place] [address] Dr. Ayden Cam RBC 4.33 106/ul Normal 4.20-5.40 [facility] Comment on above: Performed By: #### L IPA #### [facility] [address] [place] [address] Dr. Ayden Cam WBC 6.0 103/ul Normal 4.0-11.0 [facility] Comment on above: Performed By: #### L IPA #### [facility] [address] [place] [address] Dr. Ayden Cam LIPASEon 10-05-2022 Lipase [Catalytic activity/Vol] 151.0 U/L Normal 73.0-393.0 [facility] Comment on above: Performed By: #### L IPA #### [facility] [address] [place] [address] Dr. Ayden Cam LIVER PROFILEon 10-05-2022 Albumin [Mass/Vol] 3.2 g/dL Critically low 3.4-5.0 [facility] Comment on above: Performed By: #### L ACT #### [facility] [address] [place] [address] Dr. Ayden Cam Albumin/Globulin [Mass ratio] 1.1 {ratio} Normal [facility] Comment on above: Performed By: #### L ACT #### [facility] [address] [place] [address] Dr. Ayden Cam ALP [Catalytic activity/Vol] 82 U/L Normal 46-116 [facility] Comment on above: Performed By: #### L ACT #### [facility] [address] [place] [address] Dr. Ayden Cam ALT [Catalytic activity/Vol] 70 U/L Critically high 14-59 [facility] Comment on above: Performed By: #### L ACT #### [facility] [address] [place] [address] Dr. Ayden Cam AST [Catalytic activity/Vol] 36 U/L Normal 15-37 [facility] Comment on above: Performed By: #### L ACT #### [facility] [address] [place] [address] Dr. Ayden Cam BILI, CONJUGATED 0.1 mg/dL Normal 0.0-0.2 [facility] Comment on above: Performed By: #### L ACT #### [facility] [address] [place] [address] Dr. Ayden Cam Bilirubin [Mass/Vol] 0.3 mg/dL Normal 0.2-1.0 [facility] Comment on above: Performed By: #### L ACT #### [facility] [address] [address] [address] Ayden Cam Globulin (S) [Mass/Vol] 3.0 g/dL Normal [facility] Comment on above: Performed By: #### L ACT #### [facility] [address] [address] [address] Ayden Cam Protein [Mass/Vol] 6.2 g/dL Critically low 6.4-8.2 [facility] Comment on above: Performed By: #### L ACT #### [facility] [address] [place] [address] Dr. Ayden Cam PROF CHEM 8 (BAS METB)on Anion gap [Moles/Vol] 9.5 mmol/L Normal [facility] Comment on above: Performed By: #### B MP #### [facility] [address] [place] [address] Dr. Ayden Cam Calcium [Mass/Vol] 8.9 mg/dL Normal 8.5-10.1 [facility] Comment on above: Performed By: #### B MP #### [facility] [address] [place] [address] Dr. Ayden Cam Chloride [Moles/Vol] 105 mmol/L Normal 98-107 [facility] Comment on above: Performed By: #### B MP #### [facility] [address] [place] [address] Dr. Ayden Cam CO2 [Moles/Vol] 29.6 mmol/L Normal 21.0-32.0 [facility] Comment on above: Performed By: #### B MP #### [facility] [address] [place] [address] Dr. Ayden Cam Creatinine [Mass/Vol] 0.56 mg/dL Normal 0.55-1.02 [facility] Comment on above: Performed By: #### B MP #### [facility] [address] [address] [address] Ayden Cam EGFR-AF LAO >60 Normal >=60 [facility] Comment on above: Performed By: #### B MP #### [facility] [address] [address] [address] Ayden Cam EGFR-NON AF LAO >60 Normal >=60 [facility] Comment on above: Performed By: #### B MP #### [facility] [address] [address] [address] Ayden Cam Glucose [Mass/Vol] 88 mg/dL Normal 74-106 [facility] Comment on above: Performed By: #### B MP #### [facility] [address] [place] [address] Dr. Ayden Cam Potassium [Moles/Vol] 4.1 mmol/L Normal 3.5-5.1 [facility] Comment on above: Performed By: #### B MP #### [facility] [address] [place] [address] Dr. Ayden Cam Sodium [Moles/Vol] 140 mmol/L Normal 136-145 [facility] Comment on above: Performed By: #### B MP #### [facility] [address] [place] [address] Dr. Ayden Cam Urea nitrogen [Mass/Vol] 15.0 mg/dL Normal 7.0-18.0 [facility] Comment on above: Performed By: #### B MP #### [facility] [address] [place] [address] Dr. Ayden Cam Urea nitrogen/Creatinine [Mass ratio] 26.8 mg/mg Normal [facility] Comment on above: Performed By: #### B MP #### [facility] [address] [place], [place] [id number] Dr. Ayden Cam US Jhony 10-05-2022 US [...] RONAN TORIBIO Date: 2022-10-05 09:52 Normal [facility] XR KUB 1 VIEWon 10-05-2022 [...] RONAN TORIBIO Date: 2022-10-05 09:55 Normal [facility] AMYLASEon 10-04-2022 Amylase [Catalytic activity/Vol] 124 U/L Critically high 25-115 [facility] Comment on above: Performed By: #### L IPA, COLE, CMP #### [facility] [address] [address] [address] Ayden Cam CBC AUTO DIFFon 10-04-2022 BASO # 0.0 103/ul Normal 0.0-0.1 [facility] Comment on above: Performed By: #### L IPA #### [facility] [address] [address] [address] Ayden Cam Basophils/100 WBC (Bld) 0.3 % Normal 0.2-2.0 [facility] Comment on above: Performed By: #### L IPA #### [facility] [address] [place] [address] Dr. Ayden Cam EO # 0.2 103/ul Normal 0.0-0.7 [facility] Comment on above: Performed By: #### L IPA #### [facility] [address] [place] [address] Dr. Ayden Cam Eosinophils/100 WBC (Bld) 2.9 % Normal 0.9-7.0 [facility] Comment on above: Performed By: #### L IPA #### [facility] [address] [place] [address] Dr. Ayden Cam Erythrocyte distribution width (RBC) [Ratio] 12.3 % Normal 11.0-15.0 [facility] Comment on above: Performed By: #### L IPA #### [facility] [address] [place] [address] Dr. Ayden Cam Hematocrit (Bld) [Volume fraction] 42.0 % Normal 36.0-48.0 [facility] Comment on above: Performed By: #### L IPA #### [facility] [address] [place] [address] Dr. Ayden Cam Hemoglobin (Bld) [Mass/Vol] 14.3 g/dL Normal 12.0-16.0 [facility] Comment on above: Performed By: #### L IPA #### [facility] [address] [place] [address] Dr. Ayden Cam IG # 0.02 10e3/ul Normal 0.00-0.03 [facility] Comment on above: Performed By: #### L IPA #### [facility] [address] [place] [address] Dr. Ayden Cam IG % 0.3 % Normal 0.0-0.5 [facility] Comment on above: Performed By: #### L IPA #### [facility] [address] [place] [address] Dr. Ayden Cam LYMPH # 1.7 103/ul Normal 1.2-3.8 [facility] Comment on above: Performed By: #### L IPA #### [facility] [address] [place] [address] Dr. Ayedn Cam Lymphocytes/100 WBC (Bld) 22.5 % Normal 20.5-60.0 [facility] Comment on above: Performed By: #### L IPA #### [facility] [address] [place] [address] Dr. Ayden Cam MANUAL DIFF REQ NO Normal [facility] Comment on above: Performed By: #### L IPA #### [facility] [address] [place] [address] Dr. Ayden Cam MCH (RBC) [Entitic mass] 30.1 pg Normal 26.7-34.0 [facility] Comment on above: Performed By: #### L IPA #### [facility] [address] [place] [address] Dr. Ayden Cam MCHC (RBC) [Mass/Vol] 34.0 g/dL Normal 29.9-35.2 [facility] Comment on above: Performed By: #### L IPA #### [facility] [address] [place] [address] Dr. Ayden Cam MCV (RBC) [Entitic vol] 88.4 fL Normal 81.0-99.0 [facility] Comment on above: Performed By: #### L IPA #### [facility] [address] [place] [address] Dr. Ayden Cam MONO # 0.5 103/ul Normal 0.3-0.8 [facility] Comment on above: Performed By: #### L IPA #### [facility] [address] [place] [address] Dr. Ayden Cam Monocytes/100 WBC (Bld) 6.0 % Normal 1.7-12.0 [facility] Comment on above: Performed By: #### L IPA #### [facility] [address] [place] [address] Dr. Ayden Cam NEUT # 5.2 103/ul Normal 1.4-6.5 [facility] Comment on above: Performed By: #### L IPA #### [facility] [address] [place] [address] Dr. Ayden Cam Neutrophils/100 WBC (Bld) 68.0 % Normal 43.0-75.0 [facility] Comment on above: Performed By: #### L IPA #### [facility] [address] [place] [address] Dr. Ayden Cam Platelet mean volume (Bld) [Entitic vol] 9.6 fL Normal 9.5-13.5 [facility] Comment on above: Performed By: #### L IPA #### [facility] [address] [place] [address] Dr. Ayden Cam PLT 183 103/ul Normal 150-450 [facility] Comment on above: Performed By: #### L IPA #### [facility] [address] [place] [address] Dr. Ayden Cam RBC 4.75 106/ul Normal 4.20-5.40 [facility] Comment on above: Performed By: #### L IPA #### [facility] [address] [place] [address] Dr. Ayden Cam WBC 7.6 103/ul Normal 4.0-11.0 [facility] Comment on above: Performed By: #### L IPA #### [facility] [address] [place] [address] Dr. Ayden Cam Covid-19 PCR ([facility])on SARS-CoV-2 (COVID-19) RNA LOWELL+probe Ql (Unsp spec) Not detected Normal NOT DETECTED [facility] Comment on above: Result [...] for this test is supported by the [employer] Head of Health and Human Service's declaration that [...] used). Performed By: #### L IPA #### [facility] [address] [place] [address] Dr. Ayden Cam ER URINE PROFILEon 3 Bilirubin Ql (U) Negative Normal NEGATIVE [facility] Comment on above: Performed By: #### L ACT #### [facility] [address] [place] [address] Dr. Ayden Cam Clarity (U) CLEAR Normal CLEAR [facility] Comment on above: Performed By: #### L ACT #### [facility] [address] [place] [address] Dr. Ayden Cam Color (U) LT. YELLOW Normal YELLOW [facility] Comment on above: Performed By: #### L ACT #### [facility] [address] [place] [address] Dr. Ayden Cam ERUAHD A micrscopic examina tion will be performed if indicated. Normal [facility] Comment on above: Performed By: #### L ACT #### [facility] [address] [place] [address] Dr. Ayden Cam Glucose Ql (U) Negative Normal NEGATIVE [facility] Comment on above: Performed By: #### L ACT #### [facility] [address] [place] [address] Dr. Ayden Cam Hemoglobin Ql (U) Negative Normal NEGATIVE [facility] Comment on above: Performed By: #### L ACT #### [facility] [address] [place] [address] Dr. Ayden Cam Ketones Ql (U) Negative Normal NEGATIVE [facility] Comment on above: Performed By: #### L ACT #### [facility] [address] [place] [address] Dr. Ayden Cam LEUKOCYTES Negative Normal NEGATIVE [facility] Comment on above: Performed By: #### L ACT #### [facility] [address] [place] [address] Dr. Ayden Cam Nitrite Ql (U) Negative Normal NEGATIVE [facility] Comment on above: Performed By: #### L ACT #### [facility] [address] [place] [address] Dr. Ayden Cam pH (U) 8.5 [pH] Normal 5-9 [facility] Comment on above: Performed By: #### L ACT #### [facility] [address] [place] [address] Dr. Ayden Cam SPEC GRAVITY 1.015 Normal 1.005-<=1. 025 [facility] Comment on above: Performed By: #### L ACT #### [facility] [address] [place] [address] Dr. Ayden Cam UA PROTEIN Negative Normal NEGATIVE/ TRACE [facility] Comment on above: Performed By: #### L ACT #### [facility] [address] [place] [address] Dr. Ayden Cam UR MICRO IND NOT INDICATED Normal [facility] Comment on above: Performed By: #### L ACT #### [facility] [address] [place] [address] Dr. Ayden Cam Urobilinogen Qn (U) 0.2 {Peggy'U}/dL Normal 0.2 - 1. 0 [facility] Comment on above: Performed By: #### L ACT #### [facility] [address] [place] [address] Dr. Ayden Cam LACTATE/LACTIC ACIDon 2022 Lactate [Moles/Vol] 0.8 mmol/L Normal 0.4-1.9 [facility] Comment on above: Performed By: #### L ACT #### [facility] [address] [place] [address] Dr. Ayden Cam LIPASEon 10-04-2022 Lipase [Catalytic activity/Vol] 170.0 U/L Normal 73.0-393.0 [facility] Comment on above: Performed By: #### L ACT #### [facility] [address] [place] [address] Dr. Ayden Cam PROF 14(COMP METB)on 023 Albumin [Mass/Vol] 3.8 g/dL Normal 3.4-5.0 [facility] Comment on above: Performed By: #### L ACT #### [facility] [address] [place] [address] Dr. Ayden Cam Albumin/Globulin [Mass ratio] 1.1 {ratio} Normal [facility] Comment on above: Performed By: #### L ACT #### [facility] [address] [address] [address] Ayden Cam ALP [Catalytic activity/Vol] 101 U/L Normal 46-116 [facility] Comment on above: Performed By: #### L ACT #### [facility] [address] [place] [address] Dr. Ayden Cam ALT [Catalytic activity/Vol] 94 U/L Critically high 14-59 [facility] Comment on above: Performed By: #### L ACT #### [facility] [address] [place] [address] Dr. Ayden Cam Anion gap [Moles/Vol] 11.1 mmol/L Normal [facility] Comment on above: Performed By: #### L ACT #### [facility] [address] [place] [address] Dr. Ayden Cam AST [Catalytic activity/Vol] 59 U/L Critically high 15-37 [facility] Comment on above: Performed By: #### L ACT #### [facility] [address] [place] [address] Dr. Ayden Cam Bilirubin [Mass/Vol] 0.3 mg/dL Normal 0.2-1.0 [facility] Comment on above: Performed By: #### L ACT #### [facility] [address] [place] [address] Dr. Ayden Cam Calcium [Mass/Vol] 9.5 mg/dL Normal 8.5-10.1 [facility] Comment on above: Performed By: #### L ACT #### [facility] [address] [place] [address] Dr. Ayden Cam Chloride [Moles/Vol] 99 mmol/L Normal 98-107 [facility] Comment on above: Performed By: #### L ACT #### [facility] [address] [address] [address] Ayden Cam CO2 [Moles/Vol] 29.7 mmol/L Normal 21.0-32.0 [facility] Comment on above: Performed By: #### L ACT #### [facility] [address] [address] [address] Ayden Cam Creatinine [Mass/Vol] 0.61 mg/dL Normal 0.55-1.02 [facility] Comment on above: Performed By: #### L ACT #### [facility] [address] [address] [address] Ayden Cam EGFR-AF LAO >60 Normal >=60 [facility] Comment on above: Performed By: #### L ACT #### [facility] [address] [address] [address] Ayden Cam EGFR-NON AF LAO >60 Normal >=60 [facility] Comment on above: Performed By: #### L ACT #### [facility] [address] [address] [address] Ayden Cam Globulin (S) [Mass/Vol] 3.4 g/dL Normal [facility] Comment on above: Performed By: #### L ACT #### [facility] [address] [place] [address] Dr. Ayden Cam Glucose [Mass/Vol] 111 mg/dL Critically high 74-106 [facility] Comment on above: Performed By: #### L ACT #### [facility] [address] [address] [address] Ayden Cam Potassium [Moles/Vol] 3.8 mmol/L Normal 3.5-5.1 [facility] Comment on above: Performed By: #### L ACT #### [facility] [address] [address] [address] Ayden Cam Protein [Mass/Vol] 7.2 g/dL Normal 6.4-8.2 [facility] Comment on above: Performed By: #### L ACT #### [facility] [address] [address] [address] Ayden Cam Sodium [Moles/Vol] 136 mmol/L Normal 136-145 [facility] Comment on above: Performed By: #### L ACT #### [facility] [address] [address] [address] Ayden Cam Urea nitrogen [Mass/Vol] 23.0 mg/dL Critically high 7.0-18.0 [facility] Comment on above: Performed By: #### L ACT #### [facility] [address] [address] [address] Ayden Cam Urea nitrogen/Creatinine [Mass ratio] 37.7 mg/mg Normal [facility] Comment on above: Performed By: #### L ACT #### [facility] [address] [place] [address] Dr. Ayden Cam TROPONIN, HIGH SENSITIVITYon 10-04-2022 HSTROP 8.9 pg/mL Normal 4.0-51.3 [facility] Comment on above: Result Comment: CUT- OFF POINTS HAVE BEEN ESTABLISHED BASED ON THE FOURTH UNIVERSAL DEFINITIONS OF MYOCARDIAL INFARCTION. THE UPPER REFERENCE LIMIT (URL) OF TROPONIN, DEFINED THE 99TH PERCENTILE OF cTnI DISTRIBUTION IN A REFERENCE POPULATION, HAS BEEN CONFIRMED THE DECISION THRESHOLD FOR CA DIAGNOSIS. Performed By: #### L ACT #### [facility] [address] [place] [address] Dr. Ayden Cam LIPID PROFILEon 09-19-2022 CHOL-HDL RATIO NORM SEE BELOW Normal [facility] Comment on above: Result Comment: 3.3 - 4.4 LOW RISK 4.4 - 7.1 AVERAGE RISK 7.1 - 11.0 MODERATE RISK >11.0 HIGH RISK Performed By: #### L IPA #### [facility] [address] [place] [address] Dr. Ayden Cam Cholesterol [Mass/Vol] 116 mg/dL Normal <=200 [facility] Comment on above: Performed By: #### L IPA #### [facility] [address] [address] [address] Ayden Cam Cholesterol in HDL [Mass/Vol] 59 mg/dL Normal 40-60 [facility] Comment on above: Performed By: #### L IPA #### [facility] [address] [address] [address] Ayden Cam Cholesterol in LDL [Mass/Vol] 34.0 mg/dL Normal [facility] Comment on above: Performed By: #### L IPA #### [facility] [address] [place] [address] Dr. Ayden Cam Cholesterol.total/Chol esterol in HDL [Mass ratio] 2.0 {ratio} Normal [facility] Comment on above: Performed By: #### L IPA #### [facility] [address] [place] [address] Dr. Ayden Cam HDL NORMAL > or = 60 mg/dl - LO W CARDIOVASCULAR RISK <40 mg/dl - HIGH CARDIOVASCULAR RISK Normal [facility] Comment on above: Performed By: #### L IPA #### [facility] [address] [place] [address] Dr. Ayden Cam LDL CALC NORMAL SEE BELOW Normal [facility] Comment on above: Result Comment: <100 mg/dl OPTIMAL 100 - 129 mg/dl NEAR OR ABOVE OPTIMAL 130 - 159 mg/dl BORDERLINE HIGH 160 - 189 mg/dl HIGH >190 mg/dl VERY HIGH Performed By: #### L IPA #### [facility] [address] [place] [address] Dr. Ayden Cam Triglyceride [Mass/Vol] 115 mg/dL Normal <=150 [facility] Comment on above: Performed By: #### L IPA #### [facility] [address] [place] [address] Dr. Ayden Cam VLDL CALC 23.0 mg/dL Normal [facility] Comment on above: Performed By: #### L IPA #### [facility] [address] [place] [address] Dr. Ayden Cam VITAMIN D 25 OHon 09-19-2022 VIT D 25-OH 89.3 ng/mL Normal [facility] Comment on above: Performed By: #### V ITAD #### [facility] [address] [place] [address] Dr. Ayden Cam VIT D RANGES SEE BELOW Normal [facility] Comment on above: Result Comment: <20 ng/mL Vit D deficient 20 - <30 ng/mL Vit D insufficient 30 - 100 ng/mL Vit D sufficient >100 ng/mL Potential Toxicity Performed By: #### V ITAD #### [facility] [address] [address] [address] Ayden Cam Office Visit (Cardiology)on 08-15-2022 Follow-up visit Diagnoses/Problems Assessed Atherosclerosis of coronary artery of [place] heart without angina pectoris (414.01) (I25.10) History of coronary artery bypass graft (V45.81) (Z95.1) Ischemic cardiomyopathy (414.8) (I25.5) Hyperlipidemia (272.4) (E78.5) Essential hypertension, benign (401.1) (I10) Never a smoker Overweight with body mass index (BMI) of 26 to 26.9 in adult (278.02,V85.22) (E66.3,Z68.26) Paroxysmal SVT (supraventricular tachycardia) (427.0) (I47.1) Orders Atherosclerosis of coronary artery of [place] heart without angina pectoris, Essential hypertension, benign, Hyperlipidemia Basic Metabolic Panel; Status:Active - Retrospective Authorization; Requested for:[id number]; Lipid Panel; Status:Active - Retrospective Authorization; Requested for:[id number]; Overweight with body mass index (BMI) of 26 to 26.9 in adult Healthy Weight Tips; Status:Complete - Retrospective Authorization; Done: [id number] Some eating tips that can help you lose weight.; Status:Complete - Retrospective Authorization; Done: [id number] SocHx: Never a smoker Tobacco Use Screening; Status:Complete; Done: [id number] Patient Instructions Please bring all medicines, vitamins, [...] She has a history of prior inferior CA, prior PCI with subsequent three-vessel CABG and [...] CHEST PAIN.CALL 911 IF PAIN PERSISTS. Nyamyc [id number] UNIT/GM External Powderapply topically to affected area [...] no s (more content not included)... Normal [facility] Tobacco Screening.on Adult depression screening assessment No [facility] DO Work Phone: Fall risk assessment a) No falls within the last year [facility] Work Phone: Tobacco use status [facility] b) No [facility] DO Work Phone: MRI Ankle [...] by Wilder Arango on 08/01/2022 1102 Normal [facility] Student Tobacco Screening.on 021 Tobacco use status [facility] b) No -[facility] DO Work Phone: Vital Signs Date Time Vital Sign Value Performing Clinician Facility 05-15-2025 11:45-0400 Body height 160 cm Raji RINALDI Work Phone: [facility] 05-15-2025 11:45-0400 Body mass index (BMI) [Ratio] 30.82 kg/m2 Raji RINALDI Work Phone: [facility] 05-15-2025 11:45-0400 Body weight 78.93 kg Raji RINALDI Work Phone: [facility] 09-05-2024 09:53-0500 Body height 160 cm Celso Garibay DO Work Phone: [facility] 09-05-2024 09:53-0500 Body mass index (BMI) [Ratio] 30.11 kg/m2 Celso Garibay DO Work Phone: [facility] 09-05-2024 09:53-0500 Body weight 77.11 kg Celso Garibay DO Work Phone: [facility] 09-05-2024 09:53-0500 Diastolic blood pressure 80 mm[Hg] Celso Garibay DO Work Phone: [facility] 09-05-2024 09:53-0500 Heart rate 66 /min Celso Garibay DO Work Phone: [facility] 09-05-2024 09:53-0500 Systolic blood pressure 118 mm[Hg] Celso Garibay DO Work Phone: [facility] 08-19-2024 01:03-0500 Diastolic blood pressure 69 mm[Hg] Ashley Grigsby MD Work Phone: [facility] 08-19-2024 01:03-0500 Heart rate 60 /min Ashley Grigsby MD Work Phone: [facility] 08-19-2024 01:03-0500 Respiratory rate 20 /min Ashley Grigsby MD Work Phone: [facility] 08-19-2024 01:03-0500 SaO2% (BldA) [Mass fraction] 96 % Ashley Grigsby MD Work Phone: [facility] 08-19-2024 01:03-0500 Systolic blood pressure 130 mm[Hg] Ashley Grigsby MD Work Phone: [facility] 08-18-2024 20:55-0500 Body height 160.02 cm Ashley Grigsby MD Work Phone: [facility] 08-18-2024 20:55-0500 Body temperature 97.4 [degF] Ashley Grigsby MD Work Phone: [facility] 08-18-2024 20:55-0500 Body weight 78.5 kg Ashley Grigsby MD Work Phone: [facility] 08-13-2024 12:21-0500 Body height 160 cm Celso Garibay DO Work Phone: [facility] 08-13-2024 12:21-0500 Body mass index (BMI) [Ratio] 30.47 kg/m2 Celso Garibay DO Work Phone: [facility] 08-13-2024 12:21-0500 Body weight 78.02 kg Celso Garibay DO Work Phone: [facility] 08-13-2024 12:21-0500 Diastolic blood pressure 94 mm[Hg] Celso Garibay DO Work Phone: [facility] 08-13-2024 12:21-0500 Heart rate 76 /min Celso Garibay DO Work Phone: [facility] 08-13-2024 12:21-0500 Systolic blood pressure 138 mm[Hg] Celso Garibay DO Work Phone: [facility] 08-05-2024 11:08-0500 Blood Pressure Location [place] [facility] 08-05-2024 11:08-0500 Body temperature 98.6 [degF] [place] [facility] 08-05-2024 11:08-0500 Diastolic blood pressure 80 mm[Hg] JNENIFER [place] [facility] 08-05-2024 11:08-0500 Heart rate 68 /min [place] [facility] 08-05-2024 11:08-0500 Respiratory rate 16 /min [place] [facility] 08-05-2024 11:08-0500 Systolic blood pressure 131 mm[Hg] [place] [facility] 04-10-2024 15:08-0400 Blood Pressure Location [place] [facility] 04-10-2024 15:08-0400 Diastolic blood pressure 80 mm[Hg] [place] [facility] 04-10-2024 15:08-0400 Heart rate 75 /min JENNIFER M[place] [facility] 04-10-2024 15:08-0400 Respiratory rate 16 /min JENNIFER MARTINO [facility] 04-10-2024 15:08-0400 Systolic blood pressure 131 mm[Hg] JENNIFER MARTINO [facility] 02-29-2024 11:15-0400 Body height 160 cm [facility] 02-29-2024 11:15-0400 Body mass index (BMI) [Ratio] 29.58 kg/m2 [facility] 02-29-2024 11:15-0400 Body weight 75.[address] 01-17-2024 16:03-0400 Body height 161.3 cm Stephanie Berger MD PhD Work Phone: [facility] 01-17-2024 16:03-0400 Body mass index (BMI) [Ratio] 30.16 kg/m2 Stephanie Berger MD PhD Work Phone: [facility] 01-17-2024 16:03-0400 Body weight 78.47 kg Stephanie Berger MD PhD Work Phone: [facility] 08-14-2023 15:29-0500 Body height 161.3 cm Celso Garibay DO Work Phone: [facility] 08-14-2023 15:29-0500 Body mass index (BMI) [Ratio] 28.07 kg/m2 Celso Garibay DO Work Phone: [facility] 08-14-2023 15:29-0500 Body weight 73.03 kg Celso Garibay DO Work Phone: [facility] 08-14-2023 15:29-0500 Diastolic blood pressure 80 mm[Hg] Celso Garibay DO Work Phone: [facility] 08-14-2023 15:29-0500 Heart rate 56 /min Celso Garibay DO Work Phone: [facility] 08-14-2023 15:29-0500 Systolic blood pressure 138 mm[Hg] Celso Garibay DO Work Phone: [facility] 06-18-2023 15:15-0400 Diastolic blood pressure 78 mm[Hg] Gaby Tello DO Work Phone: [facility] 06-18-2023 15:15-0400 Heart rate 70 /min Gaby Tello DO Work Phone: [facility] 06-18-2023 15:15-0400 Respiratory rate 18 /min Gaby Tello DO Work Phone: [facility] 06-18-2023 15:15-0400 SaO2% (BldA) [Mass fraction] 96 % Gaby Tello DO Work Phone: [facility] 06-18-2023 15:15-0400 Systolic blood pressure 173 mm[Hg] Gaby Tello DO Work Phone: [facility] 06-18-2023 14:36-0400 Body temperature 97 [degF] Gaby Novoag DO Work Phone: [facility] 06-18-2023 13:30-0400 Body height 160 cm Gaby Novoag DO Work Phone: [facility] 06-18-2023 13:30-0400 Body mass index (BMI) [Ratio] 27.03 kg/m2 Gaby Novoag DO Work Phone: [facility] 06-18-2023 13:30-0400 Body weight 69.22 kg Gaby Novoag DO Work Phone: [facility] 11-02-2022 15:02-0500 Diastolic blood pressure 84 mm[Hg] MD Ashley Grigsby Work Phone: [facility] 11-02-2022 15:02-0500 Heart rate 78 /min MD Ashley Grigsby Work Phone: [facility] 11-02-2022 15:02-0500 Respiratory rate 18 /min MD Ashley Grigsby Work Phone: [facility] 11-02-2022 15:02-0500 SaO2% (BldA) [Mass fraction] 100 % MD Ashley Grigsby Work Phone: [facility] 11-02-2022 15:02-0500 Systolic blood pressure 161 mm[Hg] MD Ashley Grigsby Work Phone: [facility] 11-02-2022 13:20-0500 Body height 160.02 cm MD Ashley Grigsby Work Phone: [facility] 11-02-2022 13:20-0500 Body temperature 98.2 [degF] MD Ashley Grigsby Work Phone: [facility] 11-02-2022 13:20-0500 Body weight 60.78 kg MD Ashley Grigsby Work Phone: [facility] 11-01-2022 13:26-0500 Diastolic blood pressure 61 mm[Hg] MD Ashley Grigsby Work Phone: [facility] 11-01-2022 13:26-0500 Heart rate 59 /min MD Ashley Grigsby Work Phone: [facility] 11-01-2022 13:26-0500 Respiratory rate 20 /min MD Ashley Grigsby Work Phone: [facility] 11-01-2022 13:26-0500 SaO2% (BldA) [Mass fraction] 99 % MD Ashley Grigsby Work Phone: [facility] 11-01-2022 13:26-0500 Systolic blood pressure 124 mm[Hg] MD Ashley Grigsby Work Phone: [facility] 11-01-2022 10:53-0500 Body height 160.02 cm MD Ashley Grigsby Work Phone: [facility] 11-01-2022 10:53-0500 Body temperature 97.7 [degF] MD Ashley Grigsby Work Phone: [facility] 11-01-2022 10:53-0500 Body weight 61.68 kg MD Ashley Grigsby Work Phone: [facility] 10-24-2022 15:45-0500 Body height 159.38 cm Imad Asaad Other [facility] [employer] Other 10-24-2022 15:45-0500 Body mass index (BMI) [Ratio] 24.28 kg/m2 Imad Asaad Other [facility] [employer] Other 10-24-2022 15:45-0500 Body weight 61.69 kg Imad Asaad Other [facility] [employer] Other 10-24-2022 15:45-0500 Diastolic blood pressure 94 mm[Hg] Imad Asaad Other [facility] [employer] Other 10-24-2022 15:45-0500 Systolic blood pressure 133 mm[Hg] Imad Asaad Other [facility] [employer] Other 09-19-2022 00:00-0500 34 1 Ashley M Hoy Work Phone: [facility] DO Work Phone: Comment on above: [facility] 08-15-2022 15:23-0500 Body height 160.02 cm Ashley M Hoy Work Phone: [facility] DO Work Phone: 08-15-2022 15:23-0500 Body mass index (BMI) [Ratio] 26.22 kg/m2 Ashley Tyree Hoy Work Phone: [facility] 250 DO Work Phone: 08-15-2022 15:23-0500 Body surface area Derived from formula 1.7 m2 Ashley Tyree Hoy Work Phone: [facility] 250 DO Work Phone: 08-15-2022 15:23-0500 Body weight 67.13 kg Ashley Tyree Hoy Work Phone: [facility] DO Work Phone: 08-15-2022 15:23-0500 Diastolic blood pressure 82 mm[Hg] Ashley Tyree Hoy Work Phone: [facility] DO Work Phone: 08-15-2022 15:23-0500 Heart rate 80 /min Ashley Tyree Hoy Work Phone: [facility] DO Work Phone: 08-15-2022 15:23-0500 Systolic blood pressure 132 mm[Hg] Ashley Tyree Hoy Work Phone: [facility] DO Work Phone: 06-02-2022 08:12-0400 Blood Pressure Location Santiago CARRILL[facility] 06-02-2022 08:12-0400 Diastolic blood pressure 86 mm[Hg] Santiago CARRILLO [facility] 06-02-2022 08:12-0400 Heart rate 60 /min Santiago CARRILLO [facility] 06-02-2022 08:12-0400 Respiratory rate 16 /min Santiago CARRILLO [facility] 06-02-2022 08:12-0400 Systolic blood pressure 144 mm[Hg] Santiago CARRILLO [facility] 08-17-2021 09:47-0500 Body height 160.02 cm Ashley M Hoy Work Phone: [facility] 250 DO Work Phone: 08-17-2021 09:47-0500 Body mass index (BMI) [Ratio] 25.01 kg/m2 Ashley M Hoy Work Phone: [facility] DO Work Phone: 08-17-2021 09:47-0500 Body surface area Derived from formula 1.67 m2 Ashley M Hoy Work Phone: [facility] 250 DO Work Phone: 08-17-2021 09:47-0500 Body weight 64.05 kg Ashley M Hoy Work Phone: [facility] 250 DO Work Phone: 08-17-2021 09:47-0500 Diastolic blood pressure 86 mm[Hg] Ashley M Hoy Work Phone: [facility] DO Work Phone: 08-17-2021 09:47-0500 Heart rate 72 /min Ashley M Hoy Work Phone: [facility] DO Work Phone: 08-17-2021 09:47-0500 Systolic blood pressure 134 mm[Hg] Ashley M Hoy Work Phone: [facility] DO Work Phone: Encounters Encounter Date Encounter Type Care Provider Facility Start: 06-23-2025 End: 06-23-2025 Ruben Sinha DO Work Phone: [facility] Start: 06-23-2025 End: 06-23-2025 Bamboo flowsheet Bridgett Soo Stanleytito DO Work Phone: [facility] Start: 06-23-2025 End: 06-23-2025 ambulatory Fawad BRIDGETT Soo SINHA Not Available Start: 06-23-2025 End: 06-23-2025 Office outpatient visit 15 minutes JrFawad Sarmiento Soo Stanleytito DO Work Phone: [facility] Comment on above: Tendonitis of wrist, right; Right wrist pain Start: 06-16-2025 End: 06-16-2025 ambulatory BRIDGETT GONZALEZ Not Available Start: 06-02-2025 End: 06-02-2025 Bamboo flowsheet JrFawad Bridgett Soo Stanleytito DO Work Phone: [facility] Start: 06-02-2025 End: 06-02-2025 Bamboo flowsheet Bridgett Soo Stanleytito DO Work Phone: [facility] Start: 06-02-2025 End: 06-02-2025 Office outpatient visit 15 minutes JrFawad Angeltito DO Work Phone: [facility] Comment on above: Chronic pain of righ t wrist Start: 06-02-2025 End: 06-02-2025 ambulatory BRIDGETT GONZALEZ Not Available Start: 05-27-2025 End: 05-27-2025 Patient encounter procedure aRe Louie MD Work Phone: [facility] 111 Comment on above: Numbness (Primary Dx ); Paresthesias; Carpal tunnel syndrome, left Start: 05-27-2025 End: 05-27-2025 ambulatory RAE LOUIE Not Available Start: 05-15-2025 End: 05-15-2025 Bamboo flowsheet Raji RINALDI Work Phone: [facility] Start: 05-15-2025 End: 05-15-2025 Bamboo flowsheet Raji Byrd PA Work Phone: [facility] Start: 05-15-2025 End: 05-15-2025 ambulatory RAJI BYRD Not Available Start: 05-15-2025 End: 05-15-2025 Office outpatient visit 15 minutes Raji Byrd PA Work Phone: [facility] Comment on above: Right wrist pain (Pr imary Dx); Arm weakness; Numbness; Arm pain, right; Ulnar neuropathy of right upper extremity Start: 05-08-2025 End: 05-08-2025 ambulatory [facility] Start: 01-30-2025 End: 01-30-2025 ambulatory [facility] Start: 01-17-2025 End: 01-17-2025 ambulatory [facility] Start: 01-09-2025 End: 01-09-2025 ambulatory [facility] Start: 12-31-2024 End: 12-31-2024 ambulatory [facility] Start: 12-12-2024 End: 12-12-2024 ambulatory [facility] Start: 11-26-2024 End: 11-26-2024 Bamboo flowsheet Raji RINALDI Work Phone: [facility] Start: 11-26-2024 End: 11-26-2024 Bamboo flowsheet Raji Byrd PA Work Phone: [facility] Start: 11-26-2024 End: 11-26-2024 Office outpatient visit 15 minutes Raji RINALDI Work Phone: [facility] Comment on above: Acute pain of right wrist (Primary Dx); Tendonitis of wrist, right Start: 11-26-2024 End: 11-26-2024 ambulatory RAJI BYRD Not Available Start: 10-11-2024 End: 10-11-2024 ambulatory RADHA Vann [facility] Start: 09-05-2024 End: 09-05-2024 ambulatory [facility] Start: 09-05-2024 End: 09-05-2024 Transitional care manage srvc 14 day discharge Celso Garibay DO Work Phone: [facility] Comment on above: Atherosclerosis of c oronary artery bypass graft of [place] heart without angina pectoris; S/P PTCA (percutaneous transluminal coronary angioplasty); History of coronary artery bypass graft; Ischemic cardiomyopathy; Essential hypertension; Mixed hyperlipidemia; BMI 30.0-30.9,adult; Statin intolerance Start: 08-20-2024 End: 08-22-2024 Evaluation and management of inpatient Donis Arroyo Facility:[facility] Start: 08-18-2024 Evaluation and management of inpatient Ashley Grigsby MD Work Phone: [facility] Work Phone: Start: 08-18-2024 observation encounter Ashley Grigsby MD Work Phone: [facility] Work Phone: Start: 08-13-2024 End: 08-13-2024 ambulatory [facility] Start: 08-13-2024 End: 08-13-2024 Office outpatient visit 25 minutes Celso Cintrondon DO Work Phone: [facility] Comment on above: Atherosclerosis of c oronary artery of [place] heart without angina pectoris, unspecified vessel or lesion type; History of coronary artery bypass graft; Essential hypertension, benign; Hyperlipidemia, unspecified hyperlipidemia type; Acute pancreatitis, unspecified complication status, unspecified pancreatitis type ([facility] Start: 08-05-2024 End: 08-05-2024 ambulatory GENTRY-C JENNIFER MARTINO Facility:[facility] Start: 08-05-2024 End: 08-05-2024 Patient encounter procedure JENNIFER MARTINO [facility] Start: 04-10-2024 End: 04-10-2024 ambulatory GENTRY-Soo MARTINO Facility:[facility] Start: 04-10-2024 End: 04-10-2024 Patient encounter procedure JENNIFER MARTINO [facility] Start: 03-11-2024 End: 03-11-2024 ambulatory PA-C JENNIFER MARTINO Facility:[facility] Start: 03-11-2024 End: 03-11-2024 Patient encounter procedure JENNIFER MARTINO [facility] Start: 03-07-2024 End: 03-07-2024 Evaluation and management of inpatient [facility] Start: 03-06-2024 End: 03-07-2024 Evaluation and management of inpatient [facility] Start: 03-06-2024 End: 03-06-2024 Evaluation and management of inpatient [facility] Start: 02-29-2024 End: 02-29-2024 Evaluation and management of inpatient [facility] Start: 02-29-2024 End: 02-29-2024 Admission to [facility] Phone Call Provider 4 [facility] Start: 02-14-2024 End: 02-14-2024 Orders Only Stephanie Berger MD PhD Work Phone: [facility] Comment on above: Xerostomia (Primary Dx) Start: 01-17-2024 End: 01-17-2024 ambulatory STEPHANIE BERGER [facility] Start: 01-17-2024 End: 01-17-2024 Office outpatient visit 15 minutes Stephanie Berger MD PhD Work Phone: [facility] Comment on above: Dry nose (Primary Dx ); Xerostomia; Allergic rhinitis, unspecified seasonality, unspecified trigger Start: 08-14-2023 End: 08-14-2023 Office outpatient visit 15 minutes Celso Garibay DO Work Phone: [facility] Comment on above: Atherosclerosis of c oronary artery of [place] heart without angina pectoris, unspecified vessel or lesion type; History of coronary artery bypass graft; Ischemic cardiomyopathy; Essential hypertension, benign Start: 06-18-2023 End: 06-18-2023 [facility] Start: 06-18-2023 End: 06-18-2023 Subsequent hospital visit by physician Gaby Tello DO Work Phone: [facility] Comment on above: Post-menopausal blee ding; Inclusion cyst Start: 05-24-2023 Rx Renewal [facility]: Start: 05-17-2023 Patient encounter procedure Ashley Grigsby Work Phone: [facility] 250 DO Work Phone: Start: 05-15-2023 ambulatory ASHLEY GRIGSBY [facility] Start: 12-12-2022 End: 12-12-2022 ambulatory MD Ashley Grigsby Work Phone: [facility] Work Phone: Start: 12-12-2022 End: 12-12-2022 Patient encounter procedure MD Ashley Grigsby Work Phone: [facility] Work Phone: Start: 11-20-2022 End: 11-20-2022 ambulatory Imad Asaad Other [facility] [employer] Other Start: 11-20-2022 Telephone encounter Imad Asaad [facility] Start: 11-10-2022 End: 11-10-2022 Patient encounter procedure MD Ashley Grigsby Work Phone: [facility] [place] Work Phone: Start: 11-02-2022 End: 11-02-2022 Admission to same day surgery center MD Ashley Grigsby Work Phone: [facility] Work Phone: Start: 11-02-2022 End: 11-02-2022 ambulatory MD Ashley Grigsby Work Phone: [facility] Work Phone: Start: 11-01-2022 Telephone encounter Imad Asaad [facility] Start: 11-01-2022 End: 11-01-2022 Admission to same day surgery center MD Ashley Grigsby Work Phone: [facility] Work Phone: Start: 11-01-2022 End: 11-01-2022 ambulatory MD Ashley Grigsby Work Phone: [facility] Work Phone: Start: 10-24-2022 End: 10-24-2022 ambulatory Imad Asaad Other [facility] [employer] Other Start: 10-24-2022 [facility] visit new patient Imad Asaad [facility] Start: 10-16-2022 End: 10-17-[address] ASHLEY GRIGSBY Facility:H1 Start: 10-09-2022 End: 10-10-[address] ASHLEY GRIGSBY Facility:H1 Start: 10-05-2022 Rx Renewal Ashley Grigsby Work Phone: [facility] 250 DO Work Phone: Start: 10-04-2022 End: 10-06-[address] ASHLEY GRIGSBY Facility:H1 Start: 09-19-2022 End: 09-20-[address] DOCTOR PATEL Facility:H1 Start: 08-15-2022 Office outpatient vi sit 15 minutes Ashley Grigsby Work Phone: [facility] 250 DO Work Phone: Start: 08-15-2022 Patient encounter procedure Ashley Grigsby Work Phone: [facility] 250 DO Work Phone: Start: 06-02-2022 End: 06-02-2022 Patient encounter procedure Santiago Guzman LORENA [facility] Start: 05-31-2022 Rx Renewal Ashley Grigsby Work Phone: [facility] 250 DO Work Phone: Start: 02-07-2022 End: 02-07-2022 Patient encounter procedure Ashley Grigsby MD Work Phone: [facility] Laboratory Start: 02-07-2022 End: 02-07-2022 Subsequent hospital visit by physician Ashley Grigsby MD Work Phone: [facility] Laboratory Comment on above: Women's annual routi ne gynecological examination Start: 11-21-2021 Rx Renewal Ashley Grigsby Work Phone: [facility] 250 DO Work Phone: Start: 08-17-2021 Office outpatient vi sit 15 minutes Ashley Grigsby Work Phone: [facility] 250 DO Work Phone: Start: 08-19-2019 End: 08-19-2019 Subsequent hospital visit by physician Ashley CABEZAS Laboratory Comment on above: Well female exam wit h routine gynecological exam Start: 08-29-2017 Ambulatory PROVIDER UNKNOWN Facili ty:[id number] Start: 08-27-2017 Ambulatory PROVIDER UNKNOWN Facili ty:[id number] Start: 08-27-2017 Ambulatory Facility:9 [id number] Procedures Date Procedure Procedure Detail Performing Clinician Start: 05-15-2025 Radex wrist 2 views Raji RINALDI Work Phone: Start: 05-08-2025 Follow-up visit Follow-up CHAUNCEY KIMBLE Start: 11-26-2024 Radex wrist 2 views Raji [...] Berger MD PhD Work Phone: Appendectomy Ashley Grigsby Work Phone: Appendectomy Santiago CARRILLO Bypass of stomach Santiago GALVAN Cataract surgery Ashley M H oy Work Phone: Cholecystectomy Ashley Clements Ho y Work Phone: Coronary artery bypass graft Ashley Gordilloy Work Phone: Coronary artery bypa ss graft operation planned Santiago CARRILLO Decompression of median nerve Ashley M Seb Work Phone: Esophagogastrostomy, antesternal or antethoracic Ashley M Hoy Work Phone: History of coronary artery bypass grafting History of coronary artery bypass graft Ashley M Hoy Work Phone: History of coronary artery bypass grafting History of coronary artery bypass graft Celso Pam CintronPhoenix DO Work Phone: History of coronary artery bypass grafting History of coronary artery bypass graft Celso Garibay DO Work Phone: History of coronary artery bypass grafting History of coronary artery bypass graft Celso Garibay DO Work Phone: Kidney operation Ashley Clements H oy Work Phone: Operation on nose Ashley M Seb Work Phone: Peripheral neuroplasty [facility] as Tyree Grigsby Work Phone: Repair of inguinal hernia Pa jdlatrice CARRILLO Total colonoscopy Ashley Grigsby Work Phone: Plan of Treatment Date Care Activity Detail Author Start: 11-02-2032 Screening for malignant neoplasm of colon [facility] Start: 02-07-2027 Screening for malignant neoplasm of cervix [facility] Start: 08-18-2025 End: 08-18-2025 Patient encounter procedure 08/18/2025 11:20 AM EST Office Visit [facility] [address] [facility] [address] [place] [address] Celso Garibay DO [address] [facility] [address] [place] [address] [facility] Start: 08-04-2025 End: 08-04-2025 Patient encounter procedure 08/04/2025 10:45 AM EST Office Visit [facility] [place] [address] Jr. Bridgett Sinha, DO [address] [facility] [address] [place] [address] [facility] Start: 08-03-2025 End: 08-13-2025 Alanine aminotransferase [Enzymatic activity/volume] in Serum or Plasma by With P-5'-P Alanine Aminotransferase Lab Routine Hyperlipidemia, unspecified hyperlipidemia type Expected: 08/03/2025 (Approximate), Expires: 08/13/2025 [facility] Service Area Work Phone: Comment on above: Expected: 08/03/2025 (Approximate), Expi res: 08/13/2025 Start: 08-03-2025 End: 08-13-2025 Aspartate aminotransferase [Enzymatic activity/volume] in Serum or Plasma by With P-5'-P Aspartate Aminotransferase Lab Routine Hyperlipidemia, unspecified hyperlipidemia type Expected: 08/03/2025 (Approximate), Expires: 08/13/2025 [facility] Work Phone: Comment on above: Expected: 08/03/2025 (Approximate), Expi res: 08/13/2025 Start: 08-03-2025 End: 08-13-2025 Lipid 1996 panel - Serum or Plasma Lipid Panel Lab Routine Hyperlipidemia, unspecified hyperlipidemia type Expected: 08/03/2025 (Approximate), Expires: 08/13/2025 [facility] Work Phone: Comment on above: Expected: 08/03/2025 (Approximate), Expi res: 08/13/2025 Start: 07-14-2025 End: 07-14-2025 ambulatory 07/14/2025 5:00 PM EDT Evaluation [facility] [address] [place] [phone] Kayode Francois, PT [address] [facility] [place] [address] [facility] Start: 06-23-2025 End: 06-23-2025 Patient encounter procedure 06/23/2025 11:00 AM EDT Office Visit [facility] [address] [place] [phone] Jr. Bridgett Sinha, [address] [facility] [address] [place] [address] [facility] Start: 06-02-2025 End: 06-02-2026 MR Wrist - right WO contrast MR wrist right wo IV cont rast Imaging Routine Chronic pain of right wrist Expected: 06/02/2025 (Approximate), Expires: 06/02/2026 [facility] Work Phone: Comment on above: Expected: 06/02/2025 (Approximate), Expi res: 06/02/2026 Start: 06-02-2025 End: 06-02-2025 Patient encounter procedure [facility] Comment on above: Arrived Start: 06-01-2025 Influenza vaccination Influenza Vaccine (#1) [facility] Start: 05-15-2025 End: 05-15-2026 EMG AND NERVE CONDUCTION STUDY EMG AND NERVE CONDUCTIO N STUDY Neurology Routine Arm weakness Numbness Arm pain, right Ulnar neuropathy of right upper extremity Expected: 05/15/2025 (Approximate), Expires: 05/15/2026 [facility] Work Phone: Comment on above: Expected: 05/15/2025 (Approximate), Expi res: 05/15/2026 Start: 03-17-2025 End: 03-17-2025 Patient encounter procedure 03/17/2025 2:40 PM EDT Off ice Visit [facility] [address] [facility] [address] [place] [address] Celso Garibay DO [address] [facility] [address] [place] [address] [facility] Start: 02-28-2025 Adult BMI Screening Adult BMI Screening [facility] Start: 02-07-2025 Screening for malignant neoplasm of cervix [facility] Start: 01-16-2025 Adult BMI Screening Adult BMI Screening [facility] Start: 01-16-2025 Tobacco Screening Tobacco Screening [facility] Start: 01-15-2025 End: 01-15-2025 Patient encounter procedure 01/15/2025 4:00 PM EDT [facility] [address] [facility] [phone] Stephanie Berger MD PhD [address] [facility] [address] [place] [address] [facility] Start: 11-26-2024 End: 11-26-2024 Patient encounter procedure 11/26/2024 1:00 PM EST Off ice Visit [facility] [address] [place] [phone] Raji Byrd PA [address] [place] [address] [address] [place] [address] Acute pain of right wrist (Primary Dx) [facility] Comment on above: Acute pain of right wrist (Primary Dx) Start: 08-19-2024 Screening for malignant neoplasm of cervix [facility] Start: 08-19-2024 [facility] Start: 08-19-2024 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 [facility] Start: 08-19-2024 [facility] Start: 08-18-2024 Hospital admission [facility] Start: 08-15-2024 Screening for malignant neoplasm of breast Mammogram [facility] Start: 08-13-2024 End: 08-13-2024 Patient encounter procedure 08/13/2024 11:30 AM EST Office Visit [facility] [address] [place] [address] Celso Garibay DO [address] [place] [address] [facility] Start: 2024 RSV High Risk: (Elderly (60+) or Population) (1 - Risk 60-74 years 1-dose series) RSV High Risk: (Elderly (60+) or Population) (1 - Risk 60-74 years 1-dose series) [facility] Start: 06-01-2024 COVID-19 Vaccine ( season) COVID-19 Vaccine ( season) [facility] Start: 06-01-2024 Influenza vaccination Influenza Vaccine [facility] Start: 03-06-2024 End: 03-06-2024 Admission to same day surgery center 03/06/2024 11:30 AM EDT - 03/06/2024 12:45 PM EDT Surgery [facility] [address] [place] [address] Danielle Magallon MD [address] [place] [address] ESOPHAGOGASTRODUODENOSCOPY DIAGNOSTIC [54741 (CPT )] [facility] Comment on above: ESOPHAGOGASTRODUODENOSCOPY DIAGNOSTIC [4 3235 (CPT )] Start: 03-06-2024 End: 03-06-2024 Esophagogastroduodenoscopy transoral diagnostic ESOPHAGOGASTRODUODENOSCOPY DIAGNOSTIC ACUTE RECURRING PANCREATITIS, EPIGASTRIC PAIN 03/06/2024 11:30 AM EDT [facility] Start: 03-06-2024 End: 03-06-2024 Esophagoscopy flexible transoral ultrasound exam ENDOSCOPIC ULTRASOUND UPPER ACUTE RECURRING PANCREATITIS, EPIGASTRIC PAIN 03/06/2024 11:30 AM EDT [facility] Start: 03-06-2024 Subsequent hospital visit by physician 03/06/2024 11:30 AM EDT Hospital Encounter [facility] [address] [facility] [place] [address] Danielle Magallon MD [address] [place] [address] [facility] Start: 02-14-2024 Depression Screen Depression Screen [facility] Start: 02-12-2024 End: 08-14-2024 Alanine aminotransferase [Enzymatic activity/volume] in Serum or Plasma by With P-5'-P Alanine Aminotransferase Lab Routine History of coronary artery bypass graft Ischemic cardiomyopathy Expected: 02/12/2024 (Approximate), Expires: 08/14/2024 [facility] Work Phone: Comment on above: Expected: 02/12/2024 (Approximate), Expi res: 08/14/2024 Start: 02-12-2024 End: 08-14-2024 Aspartate aminotransferase [Enzymatic activity/volume] in Serum or Plasma by With P-5'-P Aspartate Aminotransferase Lab Routine Atherosclerosis of coronary artery of [place] heart without angina pectoris, unspecified vessel or lesion type Ischemic cardiomyopathy Expected: 02/12/2024 (Approximate), Expires: 08/14/2024 [facility] Work Phone: Comment on above: Expected: 02/12/2024 (Approximate), Expi res: 08/14/2024 Start: 02-12-2024 End: 08-14-2024 Lipid 1996 panel - Serum or Plasma Lipid Panel Lab Routine Atherosclerosis of coronary artery of [place] heart without angina pectoris, unspecified vessel or lesion type Expected: 02/12/2024 (Approximate), Expires: 08/14/2024 [facility] Service Area Work Phone: Comment on above: Expected: 02/12/2024 (Approximate), Expi res: 08/14/2024 Start: 08-14-2023 FUV, Provider: Celso Garibay, Status: Julio, Time: 3:00 PM FUV, Provider: Celso Garibay, Status: Julio, Time: 3:00 PM -[facility] 250 DO Work Phone: Start: 07-28-2023 Screening for malignant neoplasm of breast Breast cancer screen [facility] Start: 07-24-2023 Screening for malignant neoplasm of breast Mammogram [facility] Start: 07-03-2023 End: 07-03-2023 Patient encounter procedure 07/03/2023 4:45 PM EDT Off ice Visit [facility] [place] [address] Gaby Phillips, DO [address] [place], [place] [phone] post-op BA 05/16 [facility] Comment on above: post-op BA 05/16 Start: 06-18-2023 End: 06-18-2023 Hysteroscopy bx endometrium&/polypc w/wo d&c DILATATION AND CURETTAGE HYSTEROSCOPY Post-menopausal bleeding Inclusion cyst 06/18/2023 2:01 PM EDT [facility] Start: 06-01-2023 COVID-19 Vaccine () COVID-19 Vaccine () [facility] [employer] [facility] Start: 02-13-2023 End: 02-13-2023 Patient encounter procedure 02/13/2023 Office Visit Obstetrics and Gynecology Gaby Phillips, DO [address] [place] [address] [facility] Start: 12-12-2022 [facility] Start: 11-02-2022 [facility] Start: 11-01-2022 [facility] Start: 08-19-2022 Screening for malignant neoplasm of cervix Pap smear [facility] Start: 08-15-2022 FUV, Provider: Celso Garibay, Status: Pen, Time: 3:00 PM FUV, Provider: Celso Garibay, Status: Pen, Time: 3:00 PM [facility] 250 DO Work Phone: Start: 08-03-2022 Lipid panel Lipids [facility] Start: 09-26-2021 COVID-19 Vaccine (4 - Pfizer series) COVID-19 Vaccine (4 - Pfizer series) [facility] Start: 06-01-2019 Influenza vaccination Flu vaccine (#1) [facility]- [place], [place] Start: 05-09-2018 Pneumococcal Vaccine: Pediatrics (0 to 5 Years) and At-Risk Patients (6 to 64 Years) (2 - PCV) Pneumococcal Vaccine: Pediatrics (0 to 5 Years) and At-Risk Patients (6 to 64 Years) (2 - PCV) [facility] Start: 05-09-2018 Pneumococcal Vaccine: Pediatrics (0 to 5 Years) and At-Risk Patients (6 to 64 Years) (2 of 2 - PCV) Pneumococcal Vaccine: Pediatrics (0 to 5 Years) and At-Risk Patients (6 to 64 Years) (2 of 2 - PCV) [facility] Start: 2014 Breast cancer screen Breast cancer screen [place], [place] Start: 2014 Colon cancer screen colonoscopy Colon cancer screen colonoscopy [place], [place] Start: 2014 Shingles Vaccine (1 of 2) Shingles Vaccine (1 of 2) [facility] Start: 08-26-2009 MMR Vaccines (1 of 1 - Standard series) MMR Vaccines (1 of 1 - Standard series) [facility] Start: 2009 Screening for malignant neoplasm of colon [facility] Start: 1999 Diabetes screen Diabetes screen [facility] Start: 1986 DTaP/Tdap/Td Vaccines (1 - Tdap) DTaP/Tdap/Td Vaccines (1 - Tdap) [facility] Start: 1985 Cervical cancer screen Cervical cancer screen [place], [place] Start: 1985 Screening for malignant neoplasm of cervix [facility] Start: 1983 DTaP,Tdap and Td Vaccines (1 - Tdap) DTaP,Tdap and Td Vaccines (1 - Tdap) [facility] Start: 1983 DTaP/Tdap/Td vaccine (1 - Tdap) DTaP/Tdap/Td vaccine (1 - Tdap) [facility] Start: 1982 Adult BMI Follow Up Plan Adult BMI Follow Up Plan [facility] Start: 1982 Diabetes mellitus screening Diabetes Screening [facility] Start: 1982 Hepatitis C screening [facility] Start: 1979 HIV screen HIV screen [place], [place] Start: 1979 HIV screening HIV screen [facility] Start: 1976 Depression Screen Depression Screen [facility] Start: 1976 Depression Screening Depression Screening [facility] Start: 1975 DTaP/Tdap/Td vaccine (1 - Tdap) DTaP/Tdap/Td vaccine (1 - Tdap) [place] Start: [address] [facility] Start: 1974 Lipid screen Lipid screen [place] Start: 1964 Hepatitis B vaccine (1 of 3 - 3-dose series) Hepatitis B vaccine (1 of 3 - 3-dose series) [facility] Start: 1964 Hepatitis B Vaccines (1 of 3 - 3-dose series) Hepatitis B Vaccines (1 of 3 - 3-dose series) [facility] Start: 1964 Hepatitis C screen Hepatitis C screen [place] Start: 1964 HIV screening HIV Screening [facility] Start: 1964 Lipid panel Lipid Panel [facility] Start: 1964 Screening for malignant neoplasm of colon [facility] Start: 1964 Yearly Adult Physical Yearly Adult Physical [facility] Actin smooth muscle IgG Ab [Units/volume] in Serum [facility] Alpha 1 antitrypsin [Mass/volume] in Serum or Plasma [facility] Alpha 1 antitrypsin phenotyping [Identifier] in Serum or Plasma by Immunofixation [facility] Ceruloplasmin [Mass/ volume] in Serum or Plasma [facility] End: 08-19-2019 Cytopathology procedure, preparation of smear, genital source PAP SMEAR Lab Routine Well female exam with routine gynecological exam 1 Occurrences starting 08/19/2019 until 08/19/2019 [place] Comment on above: 1 Occurrences starting 08/19/2019 until 08/19/2019 End: 02-07-2022 Cytopathology procedure, preparation of smear, genital source PAP SMEAR Lab Routine Women's annual routine gynecological examination 1 Occurrences starting 02/07/2022 until 02/07/2022 [facility] Work Phone: Comment on above: 1 Occurrences starting 02/07/2022 until 02/07/2022 Glucose measurement estimated from glycated hemoglobin [facility] Hepatitis A virus Ab [Presence] in Serum by Immunoassay [facility] Hepatitis B core ant ibody measurement [facility] Hepatitis B virus khanna rface Ab [Presence] in Serum [facility] Hepatitis B virus khanna rface Ag [Presence] in Serum or Plasma by Immunoassay [facility] Hepatitis C virus Ig G Ab [Presence] in Serum or Plasma by Immunoassay [facility] Homogenous nuclear A b pattern [Titer] in Serum [facility] IgG [Mass/volume] in Serum or Plasma [facility] End: 06-18-2023 INITIATE PACU OXYGEN THERAPY PROTOCOL Initiate PACU Oxygen Therapy Protocol Respiratory Care Routine Continuous until discontinued starting 06/18/2023 [facility] Comment on above: Continuous until discontinued starting 0 06/18/2023 Lipoprotein a [Moles /volume] in Serum or Plasma [facility] Mitochondria M2 IgG Ab [Units/volume] in Serum [facility] Nuclear Ab [Titer] in Serum [facility] Oxygen therapy [Mini mum Data Set] Initiate Oxygen Therapy Protocol Respiratory Care Routine As Needed until discontinued starting 06/18/2023 [facility] Comment on above: As Needed until discontinued starting Oxygen therapy [Mini mum Data Set] Initiate Oxygen Therapy Protocol Respiratory Care Routine As Needed until discontinued starting 06/18/2023 [facility] Comment on above: As Needed until discontinued starting Patient Education Hemorrhoids (DC) [facility] Work Phone: End: 06-18-2023 , urine POCT , urine POCT Point of Care Testing Routine One Time for 1 Occurrences starting 06/18/2023 until 06/18/2023 [facility] Comment on above: One Time for 1 Occurrences starting 06/01 until 06/18/2023 Surgical Pathology Surgical Path ology Lab Routine Post-menopausal bleeding Inclusion cyst Release Upon Ordering for 1 Occurrences starting 06/18/2023 [facility] Comment on above: Release Upon Ordering for 1 Occurrences starting 06/18/2023 [facility] Immunizations Immunization Date Immunization Notes Care Provider Fa cility 06-05-2024 influenza virus vacc ine, unspecified formulation Raji RINALDI Work Phone: [facility] 06-01-2024 influenza, unspecifi ed formulation JENNIFER MARTINO [facility] 06-05-2023 influenza virus vacc ine, unspecified formulation Stephanie Berger MD PhD Work Phone: [facility] 06-16-2022 influenza, injectabl e, quadrivalent, preservative free Ashley M Hoy Work Phone: [facility] [employer] 250 DO Work Phone: 06-16-2022 zoster vaccine recombinant Ashley M Hoy Work Phone: [facility] Work Phone: 08-01-2021 Pfizer-BioNTech COVI D-19 Vacc 30 MCG/0.3ML Intramuscular Suspension Ashley M Hoy [facility] Work Phone: 06-30-2021 influenza virus vacc ine, unspecified formulation Ashley M Hoy Work Phone: [facility] Work Phone: 06-03-2021 Influenza, injectabl e, Madin [place] Canine Kidney, preservative free, quadrivalent Ashley M Hoy Work Phone: [facility] DO Work Phone: 01-29-2021 Pfizer-BioNTech COVI D-19 Vacc 30 MCG/0.3ML Intramuscular Suspension Ashley M Hoy Work Phone: [facility] Work Phone: 01-08-2021 Pfizer-BioNTech COVI D-19 Vacc 30 MCG/0.3ML Intramuscular Suspension Ashley M Hoy Work Phone: [facility] 2020 influenza, injectabl e, quadrivalent, preservative free Ashley M Hoy Work Phone: [facility] DO Work Phone: 07-23-2018 influenza, injectabl e, quadrivalent, preservative free Ashley M Hoy Work Phone: [facility] 250 DO Work Phone: 07-26-2017 Influenza, injectabl e, Madin [place] Canine Kidney, preservative free, quadrivalent Ashley M Hoy [facility] Work Phone: 05-09-2017 pneumococcal polysaccharide vaccine, 23 valent Ashley M Hoy Work Phone: [facility] 250 DO Work Phone: 07-03-2015 influenza, seasonal, injectable, preservative free Ashley M Hoy Work Phone: [facility] Work Phone: 06-15-2014 influenza, seasonal, injectable Ashley M Hoy Work Phone: [facility] [employer] 250 DO Work Phone: 07-29-2009 novel influenza-H1N1 -09, preservative-free, injectable Ashley M Hoy Work Phone: [facility] 250 DO Work Phone: Payers Date Payer Category Payer Self-pay [id number] [phone] [id number] 2022 [facility] [id number] 2022 [facility] [id number] 2022 Unknown 2019 Unknown [employer] [place] xxxxxxxxxxxxxxx 2019-Present [address] [place] [address] xxxxxxxxxxxxxxx [id number] 1964 Unknown [id number] 2.16.840.1.460481.3.579.2.5 93 1964 Unknown [id number] 2.16.840.1.748522.3.579.2.5 93 1964 Unknown [id number] 2.16.840.1.063027.3.579.2.5 93 1964 Unknown [id number] 2.16.840.1.573846.3.579.2.5 93 1964 Unknown [id number] 2.16.840.1.308005.3.579.2.5 93 1964 Unknown [id number] 2.16.840.1.468580.3.579.2.1 73 1964 Unknown [id number] 2.16.840.1.826724.3.579.2.1 75 1964 Unknown [id number] 2.16.840.1.644749.3.579.2.1 286 1964 Unknown [id number] 2.16.840.1.578474.3.579.2.1 286 1964 Unknown [id number] 2.16.840.1.175412.3.579.2.1 286 1964 Unknown [id number] 2.16.840.1.303764.3.579.2.1 286 1964 Unknown [id number] 2.16.840.1.393000.3.579.2.1 286 1964 Unknown [id number] 2.16.840.1.661476.3.579.2.1 286 1964 Unknown [id number] 2.16.840.1.880835.3.579.2.1 286 1964 Unknown [id number] 2.16.840.1.860576.3.579.2.7 27 1964 Unknown [id number] 2.16.840.1.974960.3.579.2.7 27 1964 Unknown [id number] 2.16.840.1.618340.3.579.2.7 27 1964 Unknown [id number] 2.16.840.1.955176.3.579.2.1 244 1964 Unknown [id number] 2.16.840.1.467626.3.579.2.1 244 1964 Unknown [id number] 2.16.840.1.524688.3.579.2.1 286 1964 Unknown [id number] 2.16.840.1.237200.3.579.2.1 286 1964 Unknown [id number] 2.16.840.1.409937.3.579.2.1 259 1964 Unknown [id number] 2.16.840.1.988432.3.579.2.1 259 1964 Unknown [id number] 2.16.840.1.159107.3.579.2.1 259 1964 Unknown [id number] 2.16.840.1.013952.3.579.2.1 259 1964 Unknown [id number] 2.16.840.1.209109.3.579.2.1 259 1964 Unknown [id number] 2.16.840.1.717972.3.579.2.1 259 1964 Unknown [id number] 2.16.840.1.757841.3.579.2.1 259 1964 Unknown [id number] 2.16.840.1.574093.3.579.2.1 259 1959 Unknown [id number] 1959 Unknown [id number] Unknown [id number] 2.16.840.1.203465.3.579.2.5 31 Social History Date Type Detail Facility Start: 08-19-2019 End: 09-13-2023 Tobacco smoking status NHIS Never smoker [place] Start: 08-19-2019 End: 06-23-2025 Alcohol intake Ex-drinker (finding) [facility] Start: 1965 Sex Assigned At Not on file [place] Start: 06-18-2023 End: 06-23-2025 No alcohol use No alcohol use [facility] 250 DO Work Phone: Start: 08-19-2019 End: 09-13-2023 Tobacco use and exposure Smokeless tobacco non-user [facility] Work Phone: Start: 06-18-2023 End: 06-23-2025 Sex Assigned At Female [facility] Start: 1965 Sex Assigned At Female [facility] Patient Health Questionnaire 9 item (PHQ-9) total score [Reported] 0 [facility] Start: 08-14-2023 End: 09-05-2024 Alcohol intake Lifetime non-drinker (finding) [facility] Work Phone: Start: 08-04-2023 End: 09-05-2024 Exposure to SARS-CoV-2 (event) Not sure [facility] Start: 08-19-2024 Sex Female (finding) [facility] Start: 01-17-2024 End: 02-29-2024 Alcoholic beverage intake Current non-drinker of alcohol (finding) [facility] Start: 09-12-2023 Gender identity Identifies as female gender (finding) [facility] NEGATED: Highlighted row Denies Caffeine use Denies Caffeine use -[facility] 250 DO Work Phone: Medical Equipment Procedure [...] Tissue Alloderm Nonmesh 2x4cm - Sna - [id number] Start: 09-06-2017 Lens Iol Ultrase rt 17.0d - [id number] Start: 11-14-2018 Sinus Implant Propel Mini - Sna - [id number] Start: 01-03-2018 Sinus Implant Propel - Sna - [id number] Start: 01-03-2018 Acrysofiq Restor [id number] Start: 11-05-2018 Goals Date Patient Goal Desired Activity /State Functional Status Date Assessment Result Facility 08-05-2024 Functional Status N/A [facility] 04-10-2024 Functional Status N/A [facility] 06-02-2022 Functional Status N/A [facility] Clinical Notes 06-02-2022 to 06-23-2025 Jr. Bridgett Sinha, DO - 06/23/2025 11:00 AM EDTJr. Bridgett Sinha, DO - 06/02/2025 10:15 AM Livia Louie MD - 05/27/2025 3:15 PM GENTRY Chamorro - 05/15/2025 11:30 AM EDTAttachments Note Date & Type Note Facility 06-23-2025 History of Present illness Narrative Images from the original note were not included. HISTORY OF PRESENT ILLNESS: EST PT Jose Alberto Saleem is an 60 y.o. @ female. EST PT RECHECK RT WRIST PAIN - HERE FOR MRI RT WRIST RESULTS 06/16/25 EPIC- S/P SPLINT XRAY RT WRIST EPIC 05/15/25 MRI RT WRIST 06/16/25 EPIC EMG RT UE DR LOUIE 05/27/25 HX RT CTR X2 PER DR [...] requiring urgent evaluation. documented in this encounter [facility] 06-02-2025 History of Present illness Narrative Images from the original note were not included. HISTORY OF PRESENT ILLNESS: EST PT Jose Alberto Saleem is an 59 y.o. @ female. EST PT WITH LONG- RECHECK RT WRIST PAIN - HERE FOR EMG RT UE RESULTS 05/27/25 DR LOUIE XRAY RT WRIST EPIC 05/15/[address] LOUIE 05/27/25 HX RT CTR X2 PER DR AMBRIZ ~3YRS AGO PREVIOUS RT WRIST FX 09/27/24 PAIN GENERALLY RADIAL ASPECT- PAIN CAN BE GLOBAL-C/O N/T RT LF/RF/MF-DIFFICULTY GRIPPING/GRASPING- PAIN CAN BE THROBBING- PT IS RT HAND DOMINANT PT IS ON PLAVIX; [...] Wrist tenderness to palpation: first dorsal compartment Wrist tenderness to palpation comment: DENIES PAIN [...] to calculate BMI. Tobacco Use: Low Risk (06/02/2025) Patient History Smoking Tobacco Use: Never Smokeless Tobacco Use: Never Passive Exposure: Not on file Alcohol Use: Not on file IMAGING: Procedures Orders Placed This Encounter Procedures MR wrist right wo IV contrast MRI RT wrist w/o at [facility]. Orbits if needed. Please contact patient to schedule Standing Status: Future Expected Date: 06/02/2025 Expiration Date: 06/02/2026 Is the patient ?: No Reason for exam:: Chronic wrist pain ASSESSMENT: ICD-10-CM 1. Chronic pain of right wrist M25.531 MR wrist right wo IV contrast G89.29 PLAN: We have discussed her EMG physical exam and symptoms today at length. She is exquisitely point tender the volar radial aspect of her right wrist. We have recommended a cockup wrist splint and MRI of her right wrist we'll see her back following the MRI. There is sensitive area is just ulnar to the first dorsal compartment in her wrist Questions answered in laymen terms at the bedside. The diagnosis, home exercise plan and any ongoing restrictions/ recommendations reviewed. If unable to be reached in office, I recommend evaluation at nearest Emergency Room if any symptoms worsened or new symptoms develop for requiring urgent evaluation. documented in this encounter [facility] 05-27-2025 History of Present illness Narrative [facility] Patient: Jose Alberto Saleem [address], [address] , Sex: 1965, Male [place] [id number] Height: 160 cm Ref Phys: Byrd fax Electroneuromyogram (ENMG) Test Date: 2025-05-27 Patient Complaints: R>LUE pain, numbness and tingling. CT release R x 2, Nerve Conduction Studies Anti Sensory Summary Table Site NR Peak (ms) Norm Peak (ms) P-T* Amp ( V) Norm P-T Amp Site1 Site2 Delta-0 (ms) Dist (cm) Davis (m/s) Norm Davis (m/s) Left Median Anti Sensory (2nd Digit) Wrist 3.6 58.4 >4.59 Wrist 2nd Digit 2.6 17.5 67 >48.9 Right Median Anti Sensory (2nd Digit) Wrist 3.4 69.9 >4.59 Wrist 2nd Digit 2.8 17.0 61 >48.9 Left Radial Anti Sensory (Snuff Box) Wrist 2.3 29.5 >9.99 Wrist Snuff Box 1.9 12.0 63 >55.9 Right Radial Anti Sensory (Snuff Box) Wrist 2.4 41.8 >9.99 Wrist Snuff Box 1.9 12.0 63 >55.9 Left Ulnar Anti Sensory (5th Digit) Wrist 3.2 52.1 >3.69 Wrist 5th Digit 2.6 15.0 58 >45.9 Right Ulnar Anti Sensory (5th Digit) Wrist 3.1 80.3 >3.69 Wrist 5th Digit 2.4 15.0 63 >45.9 Ortho Sensory Summary Table Site NR Onset (ms) Peak (ms) Norm Peak (ms) P-T* Amp ( V) Norm P-T Amp Site1 Site2 Delta-0 (ms) Dist (cm) Davis (m/s) Norm Davis (m/s) Left Ulnar Ortho Ortho Sensory (Wrist) Dig V 1.0 1.7 89.6 Dig V Wrist 1.0 8.0 80 Right Ulnar Ortho Ortho Sensory (Wrist) Dig V 1.2 1.8 77.9 Dig V Wrist 1.2 8.0 67 Motor Summary Table Site NR Onset (ms) Norm Onset (ms) O-P* Amp (mV) Norm O-P Amp Neg Dur (ms) Site1 Site2 Delta-0 (ms) Dist (cm) Davis (m/s) Norm Davis (m/s) Left Median Motor (APB) Wrist 3.3 <4.01 7.7 >4.99 5.31 Wrist APB 3.3 8.0 24 Elbow 6.7 7.4 >4.99 5.94 Elbow Wrist 3.4 18.5 54 >49.9 Right Median Motor (APB) Wrist 3.1 <4.01 10.6 >4.99 6.25 Wrist APB 3.1 8.0 26 Elbow 6.7 9.8 >4.99 6.25 Elbow Wrist 3.6 19.0 53 >49.9 Left Ulnar Motor (ADM) Wrist 2.8 <3.61 6.6 >4.99 6.25 Wrist ADM 2.8 8.0 29 B Elbow 6.1 5.8 >4.99 6.25 B Elbow Wrist 3.3 16.0 48 >46.9 A Elbow 7.3 6.5 >4.99 6.56 A Elbow B Elbow 1.2 8.0 67 >42.9 A Elbow Wrist 4.5 24.0 53 Right Ulnar Motor (ADM) Wrist 3.0 <3.61 7.7 >4.99 5.63 Wrist ADM 3.0 8.0 27 B Elbow 5.5 8.0 >4.99 5.94 B Elbow Wrist 2.5 15.0 60 >46.9 A Elbow 6.9 8.2 >4.99 6.09 A Elbow B Elbow 1.4 8.0 57 >42.9 A Elbow Wrist 3.9 23.0 59 Ortho Mixed Summary Table Site NR Onset (ms) Peak (ms) Norm Onset (ms) P-T Amp ( V) Norm P-T Amp Site1 Site2 Delta-0 (ms) Dist (cm) Davis (m/s) Norm Davis (m/s) Left Median Palmar Ortho Mixed (Wrist) Palm 1.4 1.8 <1.81 144.5 >0.0 Palm Wrist 1.4 8.0 57 >43.9 Right Median Palmar Ortho Mixed (Wrist) Palm 1.3 1.8 <1.81 122.3 >0.0 Palm Wrist 1.3 8.0 62 >43.9 EMG Side Muscle Nerve Root Ins Act Fib/ Pos Fasc Other Atrophy Amp Dur Poly Recr Pat Int Pat Comment Right Abd Poll Brev Median C8-T1 0 0 0 0 0 N N 0 1- N Right Pron Teres Median C6-7 0 0 0 0 0 N N 0 N N Right Interos Terrance I Ulnar C8-T1 0 0 0 0 0 N N 0 N N Right Flex Carpi Uln Ulnar C8,T1 0 0 0 0 0 N N 0 N N Right Triceps Brach Radial C6-7-8 0 0 0 0 0 N N 0 N N Right Biceps Brach Musculocut C5-6 0 0 0 0 0 N N 0 N N Right Deltoid Axillary C5-6 0 0 0 0 0 N N 0 N N Right C8-T1 Parasp C8-T1 0 0 0 0 0 Right C6-C7 Parasp C6-C7 0 0 0 0 0 Right C4-C5 Parasp C4-C5 0 0 0 0 0 Left Abd Poll Brev Median C8-T1 0 0 0 0 0 N 1+ 0 1- N Left Pron Teres Median C6-7 0 0 0 0 0 N N 0 N N Left Interos Terrance I Ulnar C8-T1 0 0 0 0 0 N N 0 N N Left Flex Carpi Uln Ulnar C8,T1 0 0 0 0 0 N N 0 N N Left Triceps Brach Radial C6-7-8 0 0 0 0 0 N N 0 N N Left Biceps Brach Musculocut C5-6 0 0 0 0 0 N N 0 N N Left Deltoid Axillary C5-6 0 0 0 0 0 N N 0 N N Left C8-T1 Parasp C8-T1 0 0 0 0 0 Left C6-C7 Parasp C6-C7 0 0 0 0 0 Left C4-C5 Parasp C4-C5 0 0 0 0 0 Abbreviations: Atrop=atrophy; CRD=complex repetitive discharge; Discr=discrete; Doub=doublet; Fasc=fasciculation; FFE=full for effort; Fib=fibrillation; Myokym=myokymia; Mulliken=myotonic potential; N,0=normal; NR=no response; Polyph=polyphasia; Pos=positive [sharp] wave; RFU=rapidly firing units; Serr=serrated potential (2<phases<5); W&W=waxing and waning pattern INTERPRETATION: This study reveals ENMG evidence of chronic, neuropathic, axonal, sensorimotor processes affecting the L median nerve at the wrist, consistent with the clinical diagnosis of carpal tunnel syndrome. This is of very mild degree by electrical criteria. The R median nerve is borderline. Nightly splint use was recommended. There is no suggestion by this study of more proximal lesions e.g. radiculopathy, nor of more widespread processes e.g. peripheral neuropathy or mononeuritis multiplex. Rae Louie M.D. Diplomate, [place] [employer] and Neurology (neurology, epilepsy, sleep medicine) Diplomate, [place] Board of Clinical Neurophysiology Diplomate, [place] Board of Preventive Medicine (clinical informatics) . documented in this encounter [facility] 05-19-2025 Note Called patient today to let her know that a referral has been sent to Dr. Juan Matnilla with [facility] for her sphincter of oddi dysfunction. Also, there has been ongoing calls regarding her Creon dosage. Spoke with Dr. Watson and able to conference patient in so that he can speak with her and clarify what dosage of Creon she should be on and that 2 prescriptions will now be sent to her pharmacy she will take 36,000 one tablet before meals and then 12,000-24,000 with a snack she is able to adjust the dosage depending on her snack, verifies understanding. [facility] 05-15-2025 History of Present illness Narrative Images from the original note were not included. Orthopedic Office note: NAME: Jose Alberto Saleem : 1965 EST PT WITH FLARE UP RT WRIST PAIN - DENIES INJURY- PREVIOUS RT WRIST FX 09/27/24 XRAY RT WRIST TODAY EPIC 05/15/25 HX RT CTR X2 PER DR AMBRIZ ~3YRS AGO PAIN CAN BE GLOBAL- PAIN SHOOTS UP TO ELBOW- SOME N/T- +STIFFNESS- DIFFICULTY GRIPPING/GRASPING- PT IS RT HAND DOMINANT PT IS ON PLAVIX; CARDIAC STENT Physical Exam General Appearance: Normal. Respiratory: No acute distress. Musculoskeletal: She is able to close her hand tightly in a fist. Symmetric lens cutter strength noted. She has had prior carpal tunnel release and a revision surgery on the right hand with scars noted. She has no ulnar clawing, but there is slight weakness with abduction of the little finger in comparison to the contralateral hand and she has a mildly positive Froment sign with more subjective weakness in the right than the left. Patient has a positive elbow flexion test and a positive Tinel sign at the cubital tunnel. Patient's Guyon canal is without irritation. Patient has no pain to the proximal humerus or shoulder and no cervical radiculopathy. Skin: Warm and dry, no rash. Neurological: Normal. Orders Placed This Encounter Procedures XR wrist 1 or 2 views right Is the patient ?: No Reason for exam:: PAIN EMG AND NERVE CONDUCTION STUDY Standing Status: Future Expected Date: 05/15/2025 Expiration Date: 05/15/2026 Scheduling Instructions: Schedule with Dr. Louie ( BRIANNE EMG resource).- EMG RT UE; PLEASE CALL PT TO SCHEDULE Procedures Results ICD-10-CM 1. Right wrist pain M25.531 XR wrist 1 or 2 views right 2. Arm weakness R29.898 EMG AND NERVE CONDUCTION STUDY 3. Numbness R20.0 EMG AND NERVE CONDUCTION STUDY 4. Arm pain, right M79.601 EMG AND NERVE CONDUCTION STUDY 5. Ulnar neuropathy of right upper extremity G56.21 EMG AND NERVE CONDUCTION STUDY F/U Dr. Sinha s/p EMG (RIGHT UE) to discuss need for possible: Ulnar neurolysis possible transposition. Prior ulnar nerve release surgery on left side. History of right carpal tunnel release with revision. Surgical and non surgical tx options discussed with conservative measures reviewed. Recommend ICE/ ELEVATION, continued activity modification in interim. Pt would consider surgical intervention to possibly improve symptoms. Assessment & Plan Ulnar neuropathy Discomfort is present in the little finger and ring finger, stemming from the elbow, with symptoms radiating down the arm. Slight weakness is noted with abduction of the little finger and a mildly positive Froment sign. Positive elbow flexion test and positive Tinel sign at the cubital tunnel are observed. Given her history and current symptoms, cubital tunnel syndrome is suspected. Wrist x-rays were performed today due to concerns of discomfort in the wrist and hand. However, there has been no recent trauma, and her current symptoms are more indicative of cubital tunnel syndrome. Diagnostic plan: An EMG of the right upper extremity will be ordered to further evaluate for cubital tunnel syndrome. Treatment plan: Towel rolls have been discussed as a potential aid. Steroids will be withheld due to her past experiences. Activity modifications have been discussed in the interim. Follow-up: She will follow up with the attending physician to discuss potential ulnar nerve release, considering her prior history and previous surgery on the contralateral arm. PROCEDURE Procedure Performed Prior ulnar nerve release on the contralateral arm. Prior carpal tunnel release and a revision surgery on the right hand. Questions answered in laymen terms at the bedside. The diagnosis, home exercise plan and any ongoing restrictions/ recommendations reviewed. If unable to be reached in office, I recommend evaluation at nearest Emergency Room if any symptoms worsened or new symptoms develop for requiring urgent evaluation. Visit was preformed using [employer] pilot speech recognition. documented in this encounter [facility] 05-14-2025 Note Called patient to fo llow up with the referral to [facility], that [...] LATIA Rivera in the clinic and Dr. Watson. [facility] 05-08-2025 Note Attestation signed by Chauncey Kimble MD at 05/08/2025 4:15 PM I personally saw the patient with the resident/fellow on the same day of service. I discussed the findings and therapeutic plan with the resident/fellow and with the patient. I agree with the documentation. [facility] Gastroenterology Follow-Up Patient Visit CHIEF COMPLAINT No [...] B12/Folate/Iron studies: Lab Results Component Value Date [id number] 1,862 (H) 02/27/2024 FOLATE 39.0 02/27/2024 IRON 56 02/27/2024 TIBC 364 02/27/2024 UIBC 308.0 02/27/2024 IRONSAT 15 (L) 02/27/2024 FERRITIN 32.0 02/27/2024 Viral Hepatitis Lab Results Component Value Date HEPAIGM Nonreactive 02/27/2024 HEPBSAG Nonreactive 02/27/2024 HEPBCAB Nonreactive 02/27/2024 HEPCAB Nonreactive 02/27/2024 Liver Workup Lab Results Component Value Date SMOOTHMUSCAB <1:20 02/27/2024 TTGA <1.02 02/27/2024 IGA 108 02/27/2024 TSH 2.02 02/27/2024 Pancreatiti (more content not included)... [facility] 01-09-2025 Note Attestation signed by Chauncey Kimble MD at 01/10/2025 8:31 AM I personally saw the patient with the resident/fellow on the same day of service. I discussed the findings and therapeutic plan with the resident/fellow and with the patient. I agree with the documentation. [facility] Gastroenterology New Patient Visit - History & Physical CHIEF COMPLAINT Chief Complaint Patient presents with Follow-up MRI follow up and seen at [facility] and in hospital for 1 day. Will [...] on for which she was admitted at [facility] and was management symptomatically. Patient reported [...] Plavix, baby aspirin, amlodipine, and a PRN Tropic for pain. Of note, she has a [...] which were ordered at the outside facility ([facility]) and remain pending. A HIDA scan may also be pursued for further evaluation. She reports extreme fatigue post-hospitalization, interfering with her work and daily function. She prefers to avoid surgical intervention unless necessary and is open to advanced enteroscopy (e.g., device-assisted ERCP) at tertiary centers ([facility] or [facility]) as a less invasive alternative to laparoscopic-assisted ERCP. Plan includes requesting complete LFTs and pancreatic (more content not included)... [facility] 12-12-2024 Note Attestation signed by Chauncey Kimlbe MD at 12/12/2024 3:31 PM I personally saw the patient with the resident/fellow on the same day of service. I discussed the findings and therapeutic plan with the resident/fellow and with the patient. I agree with the documentation. [facility] Gastroenterology New Patient Visit - History & [...] on for which she was admitted at [facility] and was management symptomatically. Patient reported [...] healthy appearing mucosa. This was traversed. The ghbup-pn-pvzmnlk limb was characterized by healthy appearing mucosa. [...] Angina pectoris Atherosclerosis of coronary artery of penobscot heart without angina pectoris Cellulitis of right [...] of Onset Hyperlipidemia Mother Gretta Hyperlipidemia Father Alexander Hyperlipidemia Brother [place] Heart attack Brother Ray SOCIAL HISTORY: Social History Tobacco Use Smoking status: Never Smokeless tobacco: Never Vaping Use Vaping status: Never Used Substance Use Topics Alcohol use: Never Drug use: Never ALLERGIES: Baclofen; Latex, natural rubber; Penicillins; Sulfa (sulfonamide antibiotics); Rosuvastatin; Sulfamethoxazole-trimethoprim; Fenofibrate; Fenofibrate micronized; Fluvastatin; Levofloxacin; Phenazopyridine; Simvastatin; Trimethoprim; and Tobramycin Current Med (more content not included)... [facility] 11-26-2024 History of Present illness Narrative Images [...] AND FELT A POP 10/08/24- WENT TO [facility]; SENT TO ER XRAYS XRAY RT WRIST TODAY EPIC 11/26/24 XRAY [facility] RT FOREARM 10/11/24 SPLINT DOING WELL TODAY- WEARING SPLINT- SOME STIFFNESS- PT STATES SYMPTOMS HAVE IMPROVED GREATLY RT CTR 01/11/22- DR MORSE ALLERGIES: Allergies [...] xray 10/11/24 (R) Forearm: no acute fracture [facility] Results - Imaging: - X-ray of [...] requiring urgent evaluation. documented in this encounter [facility] 09-05-2024 History of Present illness Narrative Subjective Jose Alberto Saleem is a 59 y.o. female Chief Complaint Follow-up 59-year-old female returns following acute coronary syndrome, with subsequent two-vessel intervention of the vein graft to the diagonal branch with long 3.5 x 38 mm Ray stent and pen[place]scot distal circumflex for in-stent restenosis with 3 x 18 mm [place] stent. LV function is preserved. WHEELER-LAD remains patent, penobscot right coronary vein graft right coronary is chronically occluded (known from the past) and collateralized via left coronary system, and vein graft to the OM 2 is also occluded chronically however penobscot circumflex is intact. Patient is otherwise stable [...] Atherosclerosis of coronary artery bypass graft of penobscot heart without angina pectoris 2. S/P PTCA (percutaneous transluminal coronary angioplasty) 3. History of coronary artery bypass graft 4. Ischemic cardiomyopathy 5. Essential hypertension 6. Mixed hyperlipidemia 7. BMI 30.0-30.9,adult 8. Statin intolerance Scribe Attestation By signing my name below, IJasmyne LPN, Scribe attest that this documentation has [...] discussion and plan. documented in this encounter [facility] Work Phone: 09-05-2024 Instructions Jasmyne Salinas [...] be sent through Care Everywhere.Heart Healthy Diet (Swedish)documented in this encounter [facility] Work Phone: 08-19-2024 Evaluation note Diagnosis Onset Date Resolution Atypical chest pain acute Novem rocky 2023 11:18pm [facility] Work Phone: 1(143) 175-528811-13-2024 History of Present illness Narrative* Celso Garibay DO - 08/13/2024 11:30 AM EST Subjective Jose Alberto Saleem is a 59 y.o. female Chief Complaint Annual Exam 59-year-old female returns for annual visit, she just got back from [facility] from vacation last evening and is [...] has a history of remote CABG, remote CA, remote PCI's before and after her CABG [...] Assessment/Plan 1. Atherosclerosis of coronary artery of penobscot heart without angina pectoris, unspecified vessel or lesion type Follow Up In Cardiology 2. History of coronary artery bypass graft Follow Up In Cardiology 3. Essential hypertension, benign 4. Hyperlipidemia, unspecified hyperlipidemia type 5. Acute pancreatitis, unspecified complication status, unspecified pancreatitis type ([facility]) Scribe Attestation By signing my name below, Bettie Farmer LPN, Scribe attest that this documentation has been prepared under the direction and in the presence of Haydee Garibay DO. Provider Attestation - Scribe documentation All medical record entries made by the Scribe were at my direction and personally dictated by me. Jorge Aave reviewed the chart and agree that the record accurately reflects my personal performance of the history, physical exam, discussion and plan. [facility] 1(995) 671-311711-13-2024 Instructions* Patient Instructions* Bettie Ugalde LPN - [...] Provided instructions on exercise. [facility]: 1(824) 115-469411-05-2024 Hospital Discharge instructions Patient Education 08/05/2024 12:20:10 Kidney Stones, Guoa-bw-Vxhh Kidney Stones Kidney stones are rock-like masses [...] Follow these instructions at home: Medicines Take fkhp-azj-monifql and prescription medicines only as told by [...] provider. Document Revised: 05/11/2023 Document Reviewed: 05/11/2023 Knock Knock Patient Education 2023 [employer]. Follow Up Care 06/06/2024 11:10:21 With:JENNIFER MARTINO PA-C, CARLOS Address: When:1 year [facility] 11-05-2024 NotePatient Education Urology Kidney Stones Kidney [...] these instructions at home: Medicines ??? Take ugpr-pzz-awdcada and prescription medicines only as told by [...] provider. Document Revised: 05/11/2023 Document Reviewed: 05/11/2023 [employer] Patient Education ? 2023 [employer] 04-10-2024 Hospital Discharge instructions Patient Education 04/10/2024 16:08:23 Kidney Stones, Hjeh-pv-Qghf Kidney Stones Kidney stones are rock-like masses [...] Follow these instructions at home: Medicines Take wslt-lro-qcgadfh and prescription medicines only as told by [...] provider. Document Revised: 05/22/2022 Document Reviewed: 05/22/2022 Knock Knock Patient Education 2022 [employer]. Follow Up Care 03/10/2024 08:31:33 With:SALENA REDDY JENNIFER López, URL Address: [address] [place] [address] When:3 months [facility] 07-11-2024 NotePatient Education Urology Kidney Stones Kidney [...] these instructions at home: Medicines ? Take mdfd-ful-dmxgxtm and prescription medicines only as told by [...] provider. Document Revised: 05/22/2022 Document Reviewed: 05/22/2022 Knock Knock Patient Education ? 2022 [employer] 02-29-2024 Instructions* Pre-Procedure Instructions - Aracely Boyd RN - 02/29/2024 10:00 AM EDT Your surgery/procedure is scheduled at [facility] on 03/06/2024 at 1130 Arrival Time 0930 [facility] Address: [address] [place] [address] in [address]ing lot located on [facility]. Report to the Entrance B. Check in at the information desk the surgery. The waiting room located on the second floor. If you have any questions prior to surgery, please call Pre-Admission Clinic at [phone] between 7:30 am and 4:30 pm Sunday through Sunday. If you have questions the morning of surgery, please call the Pre-op Department at [phone]. Notify your SURGEON if you develop any [...] would [facility], please call [address] [place] [address] ([phone]). Do not use lotions, creams, powders, perfume, [...] RIGHTS AND RESPONSIBILITIES As a patient at [facility], you have the right to: Receive medical care and be informed of who is taking care of you Be treated with dignity and respect Have a family member/vendor representatives of choice and your physician notified of your admission Receive information and actively participate in decisions about your care and treatment Refuse care, treatment and services Decide who may provide your support and speak for you Access restoration and spiritual services Participate in ethical issues [...] of hospital charges and payment methods Patient/patient vendor representatives responsibilities are to: Provide information about health [...] RIGHTS AND RESPONSIBILITIES As a patient at [facility], you have the right to: Receive medical care and be informed of who is taking care of you Be treated with dignity and respect Have a family member/vendor representatives of choice and your physician notified of your admission Receive information and actively participate in decisions about your care and treatment Refuse care, treatment and services Decide who may provide your support and speak for you Access restoration and spiritual services Participate in ethical issues [...] of hospital charges and payment methods Patient/patient vendor representatives responsibilities are to: Provide information about health [...] Control department if you have any questions. [facility]05-31-2024 Miscellaneous Notes* Pre-Procedure Instructions - Aracely Boyd RN - 02/29/2024 10:00 AM EDT Your surgery/procedure is scheduled at [facility] on 03/06/2024 at 1130 Arrival Time 0930 [facility] Address: [address] [place] [address] in Parking lot located on [facility]. Report to the Entrance B. Check in at the information desk the surgery. The waiting room located on the second floor. If you have any questions prior to surgery, please call Pre-Admission Clinic at [phone] between 7:30 am and 4:30 pm Sunday through Sunday. If you have questions the morning of surgery, please call the Pre-op Department at [phone]. Notify your SURGEON if you develop any [...] would like to schedule therapy at a [facility] facility, please call [phone] ([phone]). Do not use lotions, creams, powders, perfume, [...] RIGHTS AND RESPONSIBILITIES As a patient at [facility], you have the right to: Receive medical care and be informed of who is taking care of you Be treated with dignity and respect Have a family member/vendor representatives of choice and your physician notified of your admission Receive information and actively participate in decisions about your care and treatment Refuse care, treatment and services Decide who may provide your support and speak for you Access restoration and spiritual services Participate in ethical issues [...] of hospital charges and payment methods Patient/patient vendor representatives responsibilities are to: Provide information about health [...] RIGHTS AND RESPONSIBILITIES As a patient at [facility], you have the right to: Receive medical care and be informed of who is taking care of you Be treated with dignity and respect Have a family member/vendor representatives of choice and your physician notified of your admission Receive information and actively participate in decisions about your care and treatment Refuse care, treatment and services Decide who may provide your support and speak for you Access restoration and spiritual services Participate in ethical issues [...] of hospital charges and payment methods Patient/patient vendor representatives responsibilities are to: Provide information about health [...] you have any questions. documented in this encounterMad[facility]04-[facility]24 History of Present illness Narrative* Stephanie Berger MD PhD - 01/17/2024 4:00 PM EDT [facility] TH[facility] [address] [place] [id number] SUBJECTIVE: Patient ID (1965): Jose Alberto Saleem [...] Hypertension Kidney stone Kidney stones Myocardial infarction ([facility]) 2014 5 stents Visual impairment Past Surgical History: Procedure Laterality Date APPENDECTOMY BIOPSY SALIVARY GLAND FS N/A 09/06/2017 Performed by Stephanie Berger MD at [facility] CARPAL TUNNEL RELEASE right CHOLECYSTECTOMY CORONARY ARTERY BYPASS GRAFT x4 ENDOSCOPIC FUNCTIONAL SINUS SURGERY Bilateral 01/03/2018 Performed by Stephanie Berger MD at [facility] ENDOSCOPIC SURGERY SINUS Bilateral 01/03/2018 Performed by Stephanie Berger MD at [facility] EXCISION MASS UPPER EXTREMITY Right 11/19/2019 Performed by Stephanie Morse DO at [facility] HERNIA REPAIR LAPAROSCOPIC GASTRIC BYPASS LITHOTRIPSY OVARIAN CYST REMOVAL PHACO KELMAN I IMPLANT INTRAOCULAR LENS Left 11/14/2018 Performed by Nisha Stoll MD at [facility] PHACO KELMAN I IMPLANT INTRAOCULAR LENS Right 11/05/2018 Performed by Nisha Stoll MD at [facility] RELEASE CARPAL TUNNEL Right 01/11/2022 Performed by Stephanie Morse DO at [facility] RELEASE CARPAL TUNNEL [place] CPT 63607 Left 07/19/2022 Performed by Stephanie Morse DO at [facility] RESECTION SUBMUCOSAL Bilateral 09/06/2017 Performed by Stephanie Berger MD at [facility] SEPTOPLASTY SEPTOPLASTY N/A 09/06/2017 Performed by Stephanie Berger MD at [facility] STENT INSERTION LACRIMAL DUCT EYE Right 09/06/2017 Performed by Stephanie Berger MD at [facility] URETERAL STENT PLACEMENT Family History [...] tablets (6.25 mg total) by mouth daily. jnbkiqpj-yksa-OL-calcium &mins (THERAGRAN-M) 9 mg iron-400 mcg tablet [...] day. (Patient not taking:Reported on 01/17/2024) sod rubxw-ssacbp-drrflv bottle (NEILMED SINUS RINSE COMPLETE) packet with [...] in ENT in 1 year. Provider Statement: I STEPHANIE BERGER MD PhD personally performed the services [...] this chart were generated using voice recognition [employer] dictation software. Although every effort was made to ensure the accuracy of this automated composition siding worker, some errors in composition siding worker may have occurred. documented in this encounterMadison Health11-14-2023 History of Present illness Narrative* Celso Garibay, [...] has a history of remote CABG, remote CA, remote PCI's before and after her CABG [...] Assessment/Plan 1. Atherosclerosis of coronary artery of [place] heart without angina pectoris, unspecified vessel or lesion type 2. History of coronary artery bypass graft 3. Ischemic cardiomyopathy 4. Essential hypertension, benign [facility] Work Phone: [phone]) 479-928311-14-2023 Instructions* Patient Instructions* Ej Braswell MA - [...] time of your visit. documented [facility]Sal[facility] Work Phone: 1(878) 465-771709-18-2023 Hospital Discharge instructions* Discharge Instructions* Lissa Ocasio [...] call if excessive. Call the office at [phone] ([place]) [phone] ([place]) for an appointment in [address] [facility] History of Present illness Narrative* Sejal [...] with Dr. Engel. documented [facility] Evaluation note* Encounter Date Diagnosis Assessment Notes Treatment Notes Treatment Clinical Notes Nov, Elevated liver function tests (ICD-10 - R94.5) [email or web address] Other 02-02-2023 [facility]Sal[facility]Sal[facility]-24-[facility]23 Evaluation note* Encounter Date Diagnosis Assessment Notes Treatment Notes Treatment Clinical Notes Oct, Abdominal pain (ICD-10 - R10.9) Oct, Common bile duct dilatation (ICD-10 - K83.8) Oct, Elevated liver enzymes (ICD-10 - R74.8) Oct, Constipation (ICD-10 - K59.00) Colonoscopy Start Miralax daily after colonoscopy. Titration dosing discussed with patient. Oct, Colon cancer screening (ICD-10 - Z12.11) [email or web address] Other 01-04-2023 NotePROGRESS NOTE NOTE DATE: 10/04/2022 CHIEF COMPLAINT: Abdominal pain. HISTORY OF PRESENT ILLNESS: The patient is a 57-year-old female with a history of dyslipidemia and gastric bypass surgery, who has been having increasing abdominal pain and flank pain. She was seen yesterday at the [facility] for epigastric and upper abdominal [...] Prophylaxis: Lovenox. DISPOSITION: Home when medically stable.[id number] Discharge instructions Patient Education 06/02/2022 08:51:52 Kidney Stones, Xwwx-ts-Jgpp Kidney Stones Kidney stones are rock-like masses [...] Follow these instructions at home: Medicines Take dbow-doy-ntyjvbz and prescription medicines only as told by [...] 03/05/2009 Document Revised: 02/03/2020 Document Reviewed: 02/03/2020 Elsevier Patient Education 2020 [employer] Follow Up Care 05/27/2021 09:10:08 With:LORENA STRAUSS, Santiago Guzman, URL Address: [address] [place] [address]- When: Unknown [facility] evaluation + Plan note Future Appointments Appointment Date:06/01/2023 08:00:00 AM Scheduled Provider:Santiago CARRILLO MD Location:[facility] Appointment Type:URO Office Visit [facility] evaluation + Plan note Future Appointments Appointment Date:04/10/2024 03:00:00 PM Scheduled Provider:JENNIFER MARTINO PA-C Location:[facility] Appointment Type:URO Office Visit [facility] evaluation + Plan note Future Scheduled Tests Radiology* XR Abdomen 1 View 08/05/25 [facility] evaluation note* Diagnosis Women's annual routine gynecological examination documented in this encounter [employer] Work Phone: [email or web address] noteNo assessment information available [facility] Work Phone: Evaluation noteNo InformationNort [employer] Other Evaluation note* Diagnosis Post-menopausal bleeding Postmenopausal bleeding Inclusion cyst Sebaceous cyst documented in this encounter [facility] RollerwallEvaluation note* Diagnosis Atherosclerosis of coronary artery of [place] heart without angina pectoris, unspecified vessel or lesion type 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 Ischemic cardiomyopathy Other specified forms of chronic ischemic heart disease Essential hypertension, benign documented in this encounter [facility] Work Phone: Evaluation note* Diagnosis Atherosclerosis of coronary artery of [place] heart without angina pectoris, unspecified vessel or lesion type 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 Essential hypertension, benign Hyperlipidemia, unspecified hyperlipidemia type Acute pancreatitis, unspecified complication status, unspecified pancreatitis type ([facility]) documented in this encounter [facility] Work Phone: Evaluation note* Diagnosis Atherosclerosis of coronary artery bypass graft of [place]ot heart without angina pectoris S/P PTCA (percutaneous transluminal coronary angioplasty) Postsurgical percutaneous transluminal coronary angioplasty status 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 Ischemic cardiomyopathy Other specified forms of chronic ischemic heart disease Essential hypertension Unspecified essential hypertension Mixed hyperlipidemia BMI 30.0-30.9,adult Statin intolerance documented in this encounter [facility] Work Phone: Evaluation note* Diagnosis Dry nose- Primary Other diseases of nasal cavity and sinuses Xerostomia Disturbance of salivary secretion Allergic rhinitis, unspecified seasonality, unspecified trigger documented in this encounter [facility]* Diagnosis Xerostomia- Primary Disturbance of salivary secretion documented in this encounter [facility]* Diagnosis Acute pain of right wrist- Primary Tendonitis of wrist, right documented in this encounter [facility] HealthcareEvaluation note* Diagnosis Right wrist pain- Primary Pain in joint, forearm Arm weakness Other musculoskeletal symptoms referable to limbs Numbness Disturbance of skin sensation Arm pain, right Pain in soft tissues of limb Ulnar neuropathy of right upper extremity documented in this encounter [facility] HealthcareEvaluation note* Diagnosis Numbness- Primary Disturbance of skin sensation Paresthesias Disturbance of skin sensation Carpal tunnel syndrome, left Carpal tunnel syndrome documented in this encounter [facility]* Diagnosis Chronic pain of right wrist documented in this encounter [facility]* Diagnosis Tendonitis of wrist, right Right wrist pain Pain in joint, forearm documented in this encounter [facility] HealthcareHistory and physical note Author Evert Bruno [facility] November 01, 2022 12:40pm Note Date/Time November 01, 2022 1 2:40pm [facility] [address] [place] [address] Gastroenterology H&P Signed Patient: Jose Alberto Saleem MR#: [id number] : 1965 Acct:[id number] Age/Sex: 57 / F Adm Date: 3 Loc: Room: Type: [facility] Attending Dr: Evert Bruno MD Copies [...] signed by Evert Bruno MD> 11/01/22 1240 [facility] Work Phone: History and physical note Author Evert Bruno [facility] November 02, 2022 2:14pm Note Date/Time November 02, 2022 2 :14pm [facility] [address] [place] [address] Gastroenterology H&P Signed Patient: Jose Alberto Saleem MR#: [id number] : 1965 Acct:[id number] Age/Sex: 57 / F Adm Date: 3 Loc: Room: Type: [facility] Attending Dr: Evert Bruno MD Copies [...] signed by Evert Bruno MD> 11/02/22 1414 [facility] Work Phone: History general Narrative - Reported* Type Description Date Medical History impaired fasting glucose Medical History heart disease, CA stents, CABG Medical History Hypertension Medical History hyperlipidemia 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 Surgical History CABG remote history Surgical History gastric bypass 2018 Surgical History multiple kidney stones removed Surgical History appendectomy Surgical History cyst on ovarian removed Surgical History bilateral carpe tunnel surgery 2021 Surgical History cholecystectomy Hospitalization History see surgical hx [email or web address] Other Hospital course Narrative No data available for this section [facility] Discharge instructions Additional Instructions DISCHARGE INSTRUCTIONS [...] NOT operate machinery such as power tools, readfyn mowers, snow blowers, sewing machines, etc. for [...] problems. -Follow up with PCP. -Office number [phone]. [facility] Work Phone: Hospital Discharge instructions [...] NOT operate machinery such as power tools, readfyn mowers, snow blowers, sewing machines, etc. for [...] problems. -Follow up with PCP. -Office number [phone]. [facility] Work Phone: Hospital Discharge instructions No data available for this section [facility] InstructionsNot on filedocumented in this encounter [facility] SystemInstructionsNot on filedocumented in this encounter [facility] SystemInstructionsNot on filedocumented in this encounter [facility] SystemProgress note No data available for this section [facility] reason for referral (narrative)* Consultation (Routine) - Authorized Specialty Diagnoses / Procedures Referred By Contac t Referred To Contact Cardiology Diagnoses Atherosclerosis of coronary artery of penobscot heart without angina pectoris, unspecified vessel or lesion type History of coronary artery bypass graft Procedures Follow Up In Cardiology Celso Garibay, [address] [facility] [address] [place] [address] Celso Garibay DO [address] [facility], [facility] [address] [place] [address] Referral ID Status Reason Start Date Expiration Date V isits Requested Visits Authorized [id number] Authorized 08/14/2023 08/13/2024 1 1 [facility] Work Phone: Reason for visit Narrative* Other Medical (Routine) - Closed Specialty Diagnoses / Procedures Referred By Manfred flynn Referred To Contact Neurology Diagnoses Arm weakness Numbness Arm pain, right Ulnar neuropathy of right upper extremity Procedures EMG AND NERVE CONDUCTION STUDY Raji Byrd, [address] [place] [address] Phone: tel: fax: Rae Louie MD [address] [address] Phone: tel: fax: Referral ID Status Reason Start Date Expiration Date Visits Re quested Visits Authorized [id number] Closed 05/15/2025 11/11/2025 1 1 [facility] Healthcare Summary Purpose Family History Unknown Family Member Name Dates Details Family [...] Unknown Cerebrovascular accident (CVA) Unknown Advance Directives Documents on File Type Date Recorded 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 * [place] [employer] is class I * Recommendations, [...] She has a history of prior inferior CA, prior PCI with subsequent three-vessel CABG and [...] She has a history of prior inferior CA, prior PCI with subsequent three-vessel CABG and [...] section and content) DATE CREATED AUTHOR 03/26/2018 [facility] DATE CREATED AUTHOR AUTHOR'S ORGANIZ ATION 03/26/2018 [facility] DATE CREATED AUTHOR AUTHOR'S ORGANIZ ATION 08/02/2022 [facility] DATE CREATED AUTHOR AUTHOR'S ORGANIZ ATION 08/17/2022 [facility] DATE CREATED AUTHOR AUTHOR'S ORGANIZ ATION 10/17/2022 [facility] DATE CREATED AUTHOR AUTHOR'S ORGANIZ ATION 06/23/2023 [facility] DATE CREATED AUTHOR AUTHOR'S ORGANIZ ATION 07/16/2023 [facility] DATE CREATED AUTHOR AUTHOR'S ORGANIZ ATION 01/19/2024 [facility] DATE CREATED AUTHOR AUTHOR'S ORGANIZ ATION 03/07/2024 [facility] DATE CREATED AUTHOR AUTHOR'S ORGANIZ ATION 08/06/2024 [facility] DATE CREATED AUTHOR AUTHOR'S ORGANIZ ATION 09/15/2024 [facility] DATE CREATED AUTHOR AUTHOR'S ORGANIZ ATION 10/16/2024 [facility] DATE CREATED AUTHOR AUTHOR'S ORGANIZ ATION 01/22/2025 [facility] DATE CREATED AUTHOR AUTHOR'S ORGANIZ ATION 06/15/2025 [facility] DATE CREATED AUTHOR AUTHOR'S ORGANIZ ATION 06/24/2025 [facility] dical Specialists EPIC Care Teams (unrecognized sec tion and content) [...] Active Evert Bruno MD Attending Provider Active Ear Flap Binder Relationship Specialty Start Date End Date Ashley Grigsby MD [address] [place] [address] PCP - General Family Medicine 08/19/19 Ear Flap Binder Relationship Specialty Start Date End Date Ashley Grigsby MD [address] [place] [address] PCP - General Family Medicine 08/19/19 Ear Flap Binder Relationship Specialty Start Date End Date Ashley Grigsby MD [address] [place] [address] PCP - General 08/17/21 Ear Flap Binder Relationship Specialty Start Date End Date Ashley Grigsby MD [address] [place] [address] PCP - General 08/17/21 Ear Flap Binder Relationship Specialty Start Date End Date Ashley Grigsby MD [address] [place] [address] PCP - General 08/17/21 Anita Hammonds, poacher wringer operatorPediatric Social Worker 08/22/24 Ear Flap Binder Relationship Specialty Start Date End Date Ashley Grigsby MD [address] [place] [address] PCP - General 02/22/17 Ear Flap Binder Relationship Specialty Start Date End Date Ashley Grigsby MD [address] [place] [address] PCP - General 02/22/17 Ear Flap Binder Relationship Specialty Start Date End Date Ashley Grigsby MD [address] [place] [address] PCP - General 02/22/17 Ear Flap Binder Relationship Specialty Start Date End Date Ashley Grigsby MD [address] [facility] [place] [address] PCP - General Family Medicine 09/13/23 Ear Flap Binder Relationship Specialty Start Date End Date Ashley Grigsby MD [address] [facility] [place] [address] PCP - General Family Medicine 09/13/23 Ear Flap Binder Relationship Specialty Start Date End Date Ashley Grigsby MD [address] [facility] [place] [address] PCP - General Family Medicine 02/13/25 Ear Flap Binder Relationship Specialty Start Date End Date Ashley Grigsby MD [address] [facility] [place] [address] PCP - General Family Medicine 02/13/25 Ear Flap Binder Relationship Specialty Start Date End Date Ashley Grigsby MD [address] [facility] [place] [address] PCP - General Family Medicine 02/13/25 Ear Flap Binder Relationship Specialty Start Date End Date Ashley Grigsby MD [address] [facility] [place] [address] PCP - General Family Medicine 02/13/25 Ear Flap Binder Relationship Specialty Start Date End Date Ashley Grigsby MD [address] [facility] [place] [address] PCP - General Family Medicine 02/13/25 Ear Flap Binder Relationship Specialty Start Date End Date Ashley Grigsby MD [address] [facility] [place] [address] PCP - General Family Medicine 02/13/25 REASON FOR VISIT (unrecogniz ed section and content) Specialty Diagnoses / Procedures Referred By Manfred flynn Referred To Contact Diagnoses Post-menopausal bleeding Inclusion cyst Post-menopausal bleeding [N95.0] Inclusion cyst [L72.0] Procedures AK HYSTEROSCOPY BX ENDOMETRIUM&/POLYPC W/WO D&C AK DESTRUCTION BENIGN LESIONS UP TO 14 DILATATION AND CURETTAGE HYSTEROSCOPY-REMOVAL OF INCLUSION CYST aGby Phillips, DO [address] [place] [address] [facility] [address] [place] [address] Referral ID Status Reason Start Date Expiration Date Visits Re quested Visits Authorized [id number] 1 1 Reason Comments Annual Exam 1yr Specialty Diagnoses / Procedures Referred By Manfred flynn Referred To Contact Cardiology Diagnoses Atherosclerosis of coronary artery of penobscot heart without angina pectoris, unspecified vessel or lesion type History of coronary artery bypass graft Procedures Follow Up In Cardiology Celso Garibay, DO [address] [facility], [address] [address] Phone: tel: fax: Celso Garibay, DO [address] [facility], [facility] [address] [place] [address] Phone: tel: fax: Referral ID Status Reason Start Date Expiration Date V isits Requested Visits Authorized [id number] Authorized 08/14/2023 08/13/2024 1 1 Reason Comments Follow-up [facility] discharge 08/22 Reason Comments Med Refill Reason Comments Pain Reason Comments Pain Ordered Prescriptions (unrec ognized [...] BE BASED ON THE PRIMARY CLINICAL RECORDS. [facility] [facility]. provides no warranty or guarantee of the accuracy or completeness of information in this document.
[2025-07-04 11:29] LABS: Iron 85.0 ug/dL (50.0-170.0); Percent Iron Saturation 23.4 %; Total Iron Binding Capacity 364.0 ug/dL (250.0-450.0)
[2025-07-04 11:32] LABS: Thyroid Stimulating Hormone 2.347 uIU/mL (0.358-3.740)
[2025-07-05 07:09] LABS: Vitamin B12 >2000 pg/mL (232-1245)
== END 2025-07-04 10:06 | disposition home or self-care (01) ==
LOC: LAB 10:06
PROVIDERS: PCP Family Medicine; Visit Provider Psychiatry & Neurology Neurology
DX: G47.10 Hypersomnia, unspecified (principal); R53.83 Other fatigue; D61.9 Aplastic anemia, unspecified
CPT/HCPCS: 36415; 82306; 82607; 82728; 82746; 83540; 83550; 84443

== ENCOUNTER 2025-07-04 10:07 | Outpatient (OUT) | payer BC, SELFPAY ==
--- OUTSIDE RECORDS SUMMARY | 2024-09-10 09:15 | XMS_ITS | Continuity of Care Document ---
Author Organization [facility] Address [address] [place] [address] Phone Care Team Providers Care Csr Name Role Phone Johanna Raygoza CNP Unavailable [...] Providers Copied on Encounter OFFICE/OUTPATI ENT VISIT, [facility], [address], [place], [place], [address], [place] tel:[phone] [facility] No Information Idalmis Spencer. [address] [facility] [address], [place], [address], [place]. tel:[phone] Referring Provider: Johanna Raygoza, [address] [facility] [address], [place], [address]. tel:[phone] OFFICE/OUTPATI ENT VISIT, [facility], [address], [place], [place], [address], [place] tel:[phone] [place] No Information Idalmis Spencer. [address], [place], [place], [address], [place]. tel:[phone] Referring Provider: Johanna Raygoza, [facility] [address], [place], [address]. tel:[phone] OFFICE/OUTPATI ENT VISIT, [facility], [address] [place] [address] [address], [place], [place], [address], [place] tel:[phone] [facility] No Information Idalmis Spencer. [address] [facility] [address], [place], [place], [address], [place]. tel:[phone] Referring Provider: Johanna Raygoza, [facility] [address] [facility] [address], [place], [address]. tel:[phone] OFFICE/OUTPATI ENT VISIT, [facility], [address], [place], [place], [address], [place] tel:[phone] [facility] No Information Idalmis Spencer. [address] [facility] [address], [place], [place], [address], [place]. tel:[phone] Referring Provider: Johanna Raygoza, [address] [facility] [address], [place], [address]. tel:[phone] OFFICE/OUTPATI ENT VISIT, [facility], [address], [place], [place], [address], [place] tel:[phone] [facility] No Information Idalmis Spencer. [address], [place], [place], [address], [place]. tel:[phone] Referring Provider: Johanna Raygoza, [address], [place], [address]. tel:[phone] OFFICE/OUTPATI ENT VISIT, [facility], [address] [place] [address] [address], [place], [place], [address], [place] tel:[phone] [facility] No Information Idalmis Spencer. [address] [place] [address] [address], [place], [place], [address], [place]. tel:[phone] Referring Provider: Johanna Raygoza, [address] [place] [address] [address], [place], [address]. tel:[phone] OFFICE/OUTPATI ENT VISIT, [facility], [address] [place] [address] [address], [place], [place], [address], [place] tel:[phone] [facility] No Information Idalmis Spencer. [address] [place] [address] [address], [place], [place], [address], [place]. tel:[phone] Referring Provider: Johanna Raygoza, [address] [place] [address] [address], [place], [address]. tel:[phone] [facility], [address] [place] [address] [address], [place], [place], [address], [place] tel:[phone] [facility] No Information Idalmis Spencer. [address] [place] [address] [address], [place], [place], [address], [place]. tel:[phone] Referring Provider: Johanna Raygoza, [address] [place] [address] [address], [place], [address]. tel:[phone] [facility], [address] [place] [address] [address], [place], [place], [address], [place] tel:[phone] [facility] No Information Idalmis Spencer. [address] [place] [address] [address], [place], [place], [address], [place]. tel:[phone] Referring Provider: Johanna Raygoza, [address] [place] [address] [address], [place], [address]. tel:[phone] [facility], [address] [place] [address] [address], [place], [place], [address], [place] tel:[phone] [facility] IP No Information Cady Mccurdy. [address] [place] [address] [address], [place], [place], [address], [place]. tel:[phone] Referring Provider: Kaz De Los Santos, [address] [place] [address] [address], [place], [address]. tel:[phone] [facility], [address] [place] [address] [address], [place], [place], [address], [place] tel:[phone] [facility] IP No Information Idalmis Spencer. [address] [place] [address] [address], [place], [place], [address], [place]. tel:[phone] Referring Provider: Johanna Raygoza, [address] [place] [address] [address], [place], [address]. tel:[phone] OFFICE/OUTPATI ENT VISIT, [facility], [address] [place] [address] [address], [place], [place], [address], [place] tel:[phone] [facility] No Information Cady Mccurdy. [address] [place] [address] [address], [place], [place], [address], [place]. tel:[phone] Referring Provider: aKz De Los Santos, [address] [place] [address] [address], [place], [address]. tel:[phone] OFFICE/OUTPATI ENT VISIT, [facility], [address] [place] [address] [address], [place], [place], [address], [place] tel:[phone] [facility] No Information Cady Mccurdy. [address] [place] [address] [address], [place], [place], [address], [place]. tel:[phone] Referring Provider: Kaz De Los Santos, [address] [place] [address] [address], [place], [address]. tel:[phone] OFFICE CONSULTATION [facility], [address], [place], [place], [address], [place] tel:[phone] [facility] No Information Cady Mccurdy. [address] [facility] [address], [place], [place], [address], [place]. tel:[phone] Referring Provider: Kaz De Los Santos, [address] [facility] [address], [place], [address]. tel:[phone] Family History Family Member Type Diagnosis Age At Onset No Information Payers Payer name Insurance type Covered libertarian ID Raad gomez(eva Jones [id number] Social History Type Description Quantity Date Captured [...]
--- OUTSIDE RECORDS SUMMARY | 2025-06-23 10:15 | XMS_ITS | Encounter Summary ---
Author Organization [facility] Address [address] [place] [address] Care Team Providers Care Combat Systems Operator Name Role Phone Ziggy Dejesus MD Primary Care Provider [phone] Reason for Referral * Rehabilitation - Outpatient (Routine) - Authorized Specialty Diagnoses / Procedures Referred By Contfélix flynn Referred To Contact Physical Therapy Diagnoses Tendonitis of wrist, right Procedures [place] OFFICE/OUTPATIENT [facility] 60 MINUTES Jr. Torsten Sinha DO [address] [facility] [address] [place] [address] Phone: tel: fax: Kayode Francois, PT [address] [place] [address] Phone: tel: fax: Referral ID Status Reason Start Date Expiration Date Visits Requested Visits Authorized [id number] Authorized Consult and Treat 06/23/2025 12/20/2025 25 25 Reason for Visit * Reason Comments Pain Encounter Details Date Type Department Care Team (Late st Contact Info) Description 06/23/2025 10:15 AM EDT Office Visit [facility] [address] [place] [address] Jr. Torsten Sinha DO [address] [facility] [address] [place] [address] Tendonitis of wrist, right; Right wrist pain [...] Info) Description 07/14/2025 5:00 PM EDT Evaluation [facility] [address] [place] [phone] Kayode Francois, PT [address] [place] [address] 08/04/2025 10:45 AM EST Office Visit [facility] [address] [facility] [place] [phone] Jr. Torsten Sinha DO [address] [facility] [address] [place] [address] Scheduled Referrals Name Type Priority Associated Diagnoses Order Schedule Ambulatory referral to Physical Therapy Outpatient Referral Routine Tendonitis of wrist, right Expected: 06/23/2025 (Approximate), Expires: 12/21/2025 documented as of this encounter Visit Diagnoses Diagnosis Tendonitis of wrist, right Right wrist pain Pain in joint, forearm documented in this encounter Care Teams Combat Systems Operator Relationship Specialty Start Date End Date Ziggy Dejesus MD [address] [place] [address] PCP - General Family Medicine 02/13/25 documented as of this encounter
--- OUTSIDE RECORDS SUMMARY | 2025-07-04 10:10 | XMS_ITS | Encounter Summary ---
Author Organization [employer] Address [id number] [address] [place] [address] Care Team Providers Care Gas Well Drilling Manager Name Role Phone Ziggy Dejesus MD Primary Care Provider [phone] Encounter Details Date Type Department Care Team (Late st Contact Info) Description 02/08/2024 Telephone [facility] [address] [place] [address] Devaughn Messer MD PhD [address] [address] RETIRED 04/30/2024 [place] [address] Social History Tobacco Use Types [...] documented as of this encounter Care Teams Gas Well Drilling Manager Relationship Specialty Start Date End Date Ziggy Dejesus MD PCP - General 02/22/17 documented as of this encounter
--- OUTSIDE RECORDS SUMMARY | 2025-07-04 10:10 | XMS_ITS | Clinical Summary ---
Author Organization [facility] Address [id number] [address] [place] [address] Care Team Providers Care Construction Job Titles Name Role Phone Ziggy Dejesus MD Primary Care Provider [phone] Allergies Active Allergy Reactions Criticality Noted Date [...] (20 mg total) before bedtime. Active sod hvuwi-kpntfn-zqwih z bottle (NEILMED SINUS RINSE COMPLETE) packet [...] (three) times a day with meals. Active zamipbvf-zbxf-FP-c alcium &mins (THERAGRAN-M) 9 mg iron-400 mcg [...] 16 g 11 02/14/20 24 Active vit C,L-Yp-buzap-lutei n-zeaxan (PRESERVISION AREDS-2) 250-90-40-1 mg capsule Take [...] Completed 08/21/2022, Medical Devices Implanted Type Area Sanitation Inspector Device Identifier Shelf Expiration Date Model / Serial / Lot Tissue Alloderm Nonmesh 2x4cm - Sna - [id number] Implanted:Qty : 1 on 09/06/2017 by Devaughn Messer MD PhD at [facility] Graft Nose [employer] 03/20/2018 [id number] / NA / [id number] Lens Iol Ultrasert 17.0d - [id number] - [id number] Implanted:Qty : 1 on 11/14/2018 by Nisha Stoll MD at [facility] Lens Left: Eye [employer] 09/30/2020 [id number] 17.0 / [id number] / NA Sinus Implant Propel Mini - Sna - [id number] Implanted:Qty : 1 on 01/03/2018 by Devaughn Messer MD PhD at [facility] Other Implant Nose [employer] 03/06/2018 [id number] / NA / [id number] Sinus Implant [place] - Sna - [id number] Implanted:Qty : 2 on 01/03/2018 by Devaughn Messer MD PhD at [facility] Stent Bilatera l: Nose [employer] 02/15/2018 [id number] / NA / [id number] Acrysofiq Restor Implanted:Qty : 1 on 11/05/2018 by Nisha Stoll MD at [facility] Right: Eye [employer] 11/29/2019 [id number] / [id number] / NA Insurance [facility] Care Teams Construction Job Titles Relationship Specialty Start Date End Date Ziggy Dejesus MD PCP - General 02/22/17
--- OUTSIDE RECORDS SUMMARY | 2025-07-04 10:10 | XMS_ITS | Encounter Summary ---
Author Organization [facility] Address [address] [facility] [place] [address] Care Team Providers Care Bioinformatics Associate Name Role Phone Ziggy Dejesus MD Primary Care Provider [phone] Encounter Details Date Type Department Care Team (Late st Contact Info) Description 06/23/2025 Bamboo flowsheet [facility] [address] [place] [address] Jr. Torsten Sinha, DO [address] [facility] [address] [place] [address] Social History Tobacco Use Types Packs/Day Years [...] Info) Description 07/14/2025 5:00 PM EDT Evaluation [facility] [address] [place] [address] Kayode Francois, PT [address] [place], [place] [id number] 08/04/2025 10:45 AM EST Office Visit [facility] [address] [place] [id number] Jr. Torsten Sinha, [address] [address] documented as of this encounter Visit Diagnoses Not on filedocumented in this encounter Care Teams Bioinformatics Associate Relationship Specialty Start Date End Date Ziggy Dejesus MD [address] [place] [address] PCP - General Family Medicine 02/13/25 documented as of this encounter
--- OUTSIDE RECORDS SUMMARY | 2025-07-04 10:10 | XMS_ITS | CCD ---
Author Organization [facility] Care Team Providers Care Interior Design Professional Name Role Phone UNKNOWN, PROVIDER Unavailable Unavailable ASHLEY GRIGSBY Unavailable Unavailable UNKNOWN, PROVIDER Unavailable Unavailable ASHLEY GRIGSBY Unavailable Unavailable Ashley Grigsby Primary Care Provider Ashley Grigsby Unavailable Unavailable Unavailable Ashley Grigsby MD Primary Care Provider [phone] Unavailable Unavailable Ashley Grigsby Primary Care Physician [...] Unavailable MD Ashley Grigsby Primary Care Provider [phone] MD Evert Bruno Attending Provider Evert Bruno Unavailable MD Ashley Grigsby Primary Care Provider [phone] MD Evert Bruno Attending Provider Ashley Grigsby MD Primary Care Provider GABY PHILLIPS Admitting Unavail able GABY PHILLIPS Attending Unavail able ASHLEY GRIGSBY M Primary Care Unavailable HOY, ASHLEY M Primary Care Unavailable Ashley Grigsby MD Primary Care Provider [phone] STEPHANIE BERGER Attending Unavailable SEB, ASHLEY M Referring Unavailable HOY, ASHLEY M Primary Care Unavailable HOY, ASHLEY M Referring Unavailable HOY, ASHLEY M Primary Care Unavailable ALASTAL, YASEEN S Admitting Unavailable ALASTAL, YASEEN S Attending Unavailable HOReginald, ASHLEY M Primary Care Unavailable MAGO OMNAE Attending Unavailable HOReginald, ASHLEY M Primary Care Unavailable ALASTAL, YASEEN S Attending Unavailable ALASTAL, YASEEN S Referring Unavailable HOReginald, ASHLEY M Primary Care Unavailable BARRY MARTINO Attending Unavailab BARRY Rosa Attending Unavailab BARRY Rosa Attending Unavailab Ashley Ruiz MD Primary Care Provider [phone] Lynnette Chapman MD Emergency Provider Donis [...] Unavailable Ashley Grigsby MD Primary Care Provider [phone] Ashley Grigsby MD Primary Care Provider [phone] CHAUNCEY KIMBLE Referring Unavailable ASHLEY GRIGSBY Primary Care Unavailable RADHA JAIMES Referring Unavailable ASHLEY GRIGSBY Primary Care Unavailable Ashley Grigsby MD Primary Care Provider [phone] NARANDI, ALI Attending Unavailable NAWRAS, ALI Referring [...] 017 Other (See Comments), Shortness of breath [place], [place] (20 sources) Latex; Translations: [LATEX] Propensity to adverse reactions to drug 006 Anaphylaxis, Shortness Of Breath, Anaphylaxis (disorder) [place] (16 sources) Penicillins; Translations: [penicillins] Propensity to adverse reactions to drug 006 Hives, Anaphylaxis (disorder) [place] (3 sources) rosuvastatin Drug Allergy 019 [place] (20 sources) Sulfamethoxazole / Trimethoprim; Translations: [Bactrim TABS] Drug Allergy 019 Hives [place] (11 sources) natural latex rubber Allergy to substance (finding) [facility] Work Phone: (11 sources) Penicillins; Translations: [Penicillins] Allergy to drug (finding) Rash [facility] Work Phone: (20 sources) rosuvastatin; Translations: [Crestor TABS] Drug Allergy 017 Elevated liver enzymes level (finding), Other, Other (See Comments) [facility] (16 sources) Sulfonamides (Antibiotic); Translations: [Sulfa Drugs] Allergy to drug (finding) Hives [facility] (20 sources) levoFLOXacin; Translations: [levofloxacin] Drug Allergy 017 Other (See Comments), Candidiasis (disorder) [employer] Phone: (8 sources) Phenazopyridine; Translations: [PHENAZOPYRIDINE HCL] Drug Allergy Nausea And Vomiting [employer] Phone: (3 sources) Simvastatin; Translations: [SIMVASTATIN] [facility]ergy [facility]: (15 sources) Sulfonamides (Antibiotic) Propensity to adverse reactions to drug Other (See Comments), Hives, Shortness of breath [facility] (12 sources) Tobramycin; Translations: [tobramycin] Drug Allergy 023 Eruption of skin (disorder), Rash [facility] (1 source) Baclofen Drug Allergy [facility] Repository (1 source) Latex Drug allergy (disorder) [facility] (5 sources) levoFLOXacin; Translations: [Levaquin] Drug Allergy thrush [facility] Rep[facility] (1 source) Penicillins Drug allergy (disorder) [facility] (1 source) rosuvastatin Drug Allergy [facility] Rep[facility] (1 source) Sulfonamides (Antibiotic) Drug allergy (disorder) [facility] (11 sources) rosuvastatin; Translations: [ROSUVASTATIN] Drug Allergy 017 Gastrointestinal Upset [facility] (5 sources) Sulfamethoxazole; Translations: [sulfamethoxazole] Drug Allergy 023 Hives, Hives, ([place]) 08/08/2011 [facility] (20 sources) Trimethoprim; Translations: [trimethoprim] Drug Allergy 023 Hives, Hives, ([place]) 08/08/2011 [facility] (6 sources) Fenofibrate; Translations: [FENOFIBRATE] Drug Allergy 009 ([place]) 08/08/2011 [facility] [employer] (3 sources) Penicillin Drug Allergy ([place]) 08/08/2011 [employer] Other (9 sources) Substance with sulfonamide structure and antibacterial mechanism of action (substance) Drug allergy Shortness of breath, Hives [employer] Other (7 sources) Penicillins Propensity to adverse reactions to drug Hives, Rash [facility] [employer] (14 sources) Tobramycin Drug Allergy Rash [facility] [employer] (7 sources) Fenofibrate; Translations: [FENOFIBRATE MICRONIZED] Drug Allergy [facility] Repository (7 sources) Sulfonamides (Antibiotic); Translations: [SULFA (SULFONAMIDE ANTIBIOTICS)] Propensity to adverse reactions to drug (disorder) Unknown Reaction [facility] Repository (1 source) Baclofen Drug Allergy [facility] Repository (1 source) Fenofibrate Drug Allergy [facility] Repository (1 source) Latex Drug allergy (disorder) [facility] Repository (1 source) levoFLOXacin Drug Allergy [facility] Repository (1 source) Penicillins Drug allergy (disorder) [facility] Repository (13 sources) Baclofen Drug Allergy [...] to adverse reactions to drug (disorder) 006 [facility] Repository Medications Current Medications Medication Drug [...] 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 0 Active [facility] Calcium 600 [...] Active Start: 11-01-2022 take 4 tablets by [facility] once daily Citalopram 10 mg tablet Active 40 MG PO Daily November 01, 2022 12:00am Start: 11-01-2022 take 10 mg by mouth once daily Citalopram Active 10 MG PO Daily November 01, 2022 1:00am End: 08-13-2024 citalopram (CeleXA) 20 MG ta blet Take 20 mg by mouth Active take 2 tablets by [facility] once daily citalopram (CELEXA) 10 MG tablet Take 2 tablets by mouth daily 0 Active clopidogrel 75 mg oral tablet (11 sources) P2Y12 Platelet Inhibitor Start: 09-05-2024 End: 09-05-2025 take 1 tablet by mouth once daily clopidogrel (Plavix) 75 mg tablet Indications: Atherosclerosis of coronary artery bypass graft of [place] traverse heart without angina pectoris , S/P PTCA [...] mouth two times weekly Vitamin D (Ergocalciferol) 61458 UNIT 1 capsule Orally TWICE a Week [...] 3 weeks, then 3x per week thereafter, [id number], 160, cm, 04/10/24 15:13:00 EDT, Height/Length Dosing, [...] Start: 04-30-2020 fluticasone 0. 05 mg/inh Nasal [facility] Refill(s) 0 Start Date: 04/30/20 Status: Ordered Start: 10-24-2017 End: 02-29-2024 take 2 spray(s) nasal route once daily fluticasone (FLONASE) 50 mcg/actuation nasal spray Indications: Chronic pansinusitis Administer 2 sprays into each nostril daily. 16 g 11 10/24/2017 02/29/2024 Discontinued (Duplicate Listing) fluticasone 0.05 mg/inh Nasal [facility] (3 sources) Start: 04-30-2020 fluticasone 0.05 mg/inh Nasal [facility] Refill(s) 0 Start Date: 04/30/20 Status: Ordered [...] day(s), # 45 tab(s), Refills(s) 3, Pharmacy: [facility], 160, cm, 06/02/22 8:29:00 EDT, [...] Daily, # 90 tab(s), Refills(s) 3, Pharmacy: [facility], 160, cm, 05/27/21 8:19:00 EDT, [...] day(s), # 30 tab(s), Refills(s) 11, Pharmacy: [facility] #[id number], 160, cm, 04/10/24 15:13:00 EDT, Height/Length Dosing, [...] 2 PO) Take by mouth 0 Active xcokgvhg-lhoh-RI-arley cium &mins (THERAGRAN-M) 9 mg iron-400 mcg tablet (3 sources) tziznfsn-gwdp-YR - calcium &mins (THERAGRAN-M) 9 mg iron-400 [...] mouth 2 times a day. 0 Active Ofbuqzynfpqh-Jfl-Uowd-Fa-Vit K (Bariatric Multivitamins) 45 mg iron- 800 mcg-120 mcg Capsule (4 sources) Start: 11-01-2022 take 1 capsule by mouth twice daily Vghwkjglrdce-Gmj-Yamo-Fa-Vit K (Bariatric Multivitamins) 45 mg iron- 800 mcg-120 mcg Capsule Active 1 CAP PO Twice daily November 01, 2022 1:00am Start: 11-01-2022 take 1 capsule by [facility] twice daily Ibuyyfzibajl-Mex-Gagv-Fa-Vit K (Bariatri c Multivitamins) 45 mg iron- [...] tablet Indications: Atherosclerosis of coronary artery of [place] heart without angina pectoris, unspecified vessel or [...] powder 04/19/2018 Active omega-3 acid ethyl esters (chcf) 1000 mg oral capsule (3 sources) take [...] April 21, 2018 11:01pm polyethylene glycol 3350 484843 mg / potassium chloride 2970 mg / sodium bicarbonate 6740 mg / sodium chloride 5860 mg / sodium sulfate 61458 mg powder for oral solution (3 sources) [...] mouth 3 times a day. Active sod dbvyv-vffqsl-wwlbjy bottle (NEILMED SINUS RINSE COMPLETE) packet with rinse device nasal solution (3 sources) Start: 09-13-2017 take 1 dose nasal route once daily sod byctw-bmlioj-oyjfeb bottle (NEILMED SINUS RINSE COMPLETE) packet with [...] day(s), # 180 cap(s), Refills(s) 3, Pharmacy: [facility], 160, cm, 05/27/21 8:19:00 EDT, Height/Length Dosing, 61, kg, 05/27/21 8:19:00 EDT, Weight Dosing Start Date: 03/14/22 Stop Date: 03/09/23 Status: Ordered Start: 04-17-2018 take 1 capsule by [facility] once daily tamsulosin (Flomax) 0.4 mg [...] day(s), # 30 tab(s), Refills(s) 11, Pharmacy: [facility] #[id number], 160, cm, 04/10/24 15:13:00 EDT, Height/Length Dosing, 74, kg, 04/10/24 15:13:00 EDT, Weight Dosing Start Date: 04/10/24 Stop Date: 04/05/25 Status: Ordered vit C,Q-Av-wnrjn-lutein-zeaxan (PRESERVISION AREDS-2) 250-90-40-1 mg capsule (1 source) vit C,O-Wi-ikury-lutein-z eaxan (PRESERVISION AREDS-2) 250-90-40-1 mg capsule Take [...] a day for 30 day(s) Active vitamins A,C,B-cexx-pnivua (1 source) Start: 08-19-2024 vitamins A,C,R-tzkd-dwcxpf Active PO August 19, 2024 12:00am Zyrtec [...] ascorbic acid 226 mg / beta carotene 10636 unt / cuprous oxide 0.8 mg / [...] / neomycin 3.5 mg/ml / polymyxin b 86010 unt/ml ophthalmic suspension (3 sources) Aminoglycoside Antibacterial, Polymyxin-class Antibacterial, Corticosteroid Start: 06-13-2021 take 2 drop(s) into the eye(s) four times daily Neomycin-Polymyxin- HC 3.5-83839-9 Ophthalmic Suspension instill 2 drops INTO AFFECTED [...] sources) Coronary atherosclerosis; Translations: [Coronary atherosclerosis of [place] coronary artery] Onset: 2 Chronic Coronary atherosclerosis [...] 4 08-18-2024 Episodic Other aftercare (1 source) 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 ELECTRONICALLY SIGNED BY: Widler Arango MD Normal Not Available Comment on above: Order Comment: MRI R T wrist w/o at [facility]. Orbits if needed. Please contact patient to schedule Orders Onlyon 05-19-2025 Orders Only [id number] Diana Saleem ttrene 1965 F Date Provider Department Center 05/19/2025 [id number] WATSON [facility] Family History Problem Relation Age of Onset Hyperlipidemia Mother Hyperlipidemia Father Hyperlipidemia Brother Heart attack Brother Family Status - Relation Status Age at Mother Father Brother Brother Normal [facility] Telephoneon 05-19-2025 Telephone [id number] Diana Saleem ttrene 1965 F Date Provider Department Center 05/19/2025 GISELA OMER [facility] Family History Problem Relation Age of Onset Hyperlipidemia Mother Hyperlipidemia Father Hyperlipidemia Brother Heart attack Brother Family Status - Relation Status Age at Mother Father Brother Brother Normal [facility] XR Wrist - right 2 Viewson 0 05-15-2025 Image result: AP and Lateral Right Wrist: Bone Structure: No acute fracture or dislocation Joint Spaces: The carpal joint spaces are well preserved, minimal joint space narrowing mostly radial with subchondral sclerosis. Scapho-lunate interval within normal limit. Soft tissue: No swelling or calcification Impression: No acute bony process Right Wrist with minimal degenerative changes. [facility] Radiology Study observation (narrative) [facility] 36on 05-14-2025 36 Housekeeping Manager spoke with Justo kang the pharmacy technician program director and clarify some information and that is what was needed so hopefully soon be able to get soon. Normal [facility] Telephoneon 05-14-2025 Telephone [id number] Diana Saleem 1965 F Date Provider Department Center 05/14/2025 [id number]-NNJGEKANALISA WATSON [facility] Medical Pavi Family History Problem Relation Age of Onset Hyperlipidemia Mother Hyperlipidemia Father Hyperlipidemia Brother Heart attack Brother Family Status - Relation Status Age at Mother Father Brother Brother [facility] Telephone [id number] SaleemDiana orozco tte 1965 [facility] Department [place] 05/14/2025 GISELA OMER [facility] Family History Problem Relation Age of Onset Hyperlipidemia Mother Hyperlipidemia Father Hyperlipidemia Brother Heart attack Brother Family Status - Relation Status Age at Mother Father Brother Brother [facility] 29on 05-08-2025 29 Addended by: ANALISA TAYLOR on: 05/14/2025 03:06 PM Modules accepted: [facility] 29 Addended by: ANALISA TAYLOR on: 05/12/2025 05:18 PM Modules accepted: [facility] Follow-Upon 05-08-2025 Follow-Up [id number] SaleemDiana ttrene 1965 [facility] 05/08/2025 CHAUNCEY CESPEDES [facility] GI [facility] Family History Problem Relation Age of Onset Hyperlipidemia Mother Hyperlipidemia Father Hyperlipidemia Brother Heart attack Brother Family Status - Relation Status Age at Mother Father Brother Brother Level of Service:42137 LA OFFICE/OUTPATIENT ESTABLISHED MOD MDM 30 MIN () Reason for Visit and Comments: Follow-up [076384] [facility] 36on 03-25-2025 36 I called the [...] Dr. Kimble is aware of the plan. [facility] Telephoneon 03-25-2025 Telephone [id number] SaleemDiana ttrene 1965 Date Provider Department Center 03/25/2025 [id number]-SANDRA MARTIN [facility] Family History Problem Relation Age of Onset Hyperlipidemia Mother Hyperlipidemia Father Hyperlipidemia Brother Heart attack Brother Family Status - Relation Status Age at Mother Father Brother Brother [facility] 36on 03-20-2025 36 03/25/25@1020 Left pa [...] should she follow up in the clinic. [facility] Telephoneon 03-20-2025 Telephone [id number] Diana Saleem 1965 Provider Department Center 03/20/2025 GISELA OMER [facility] Family History Problem Relation Age of Onset Hyperlipidemia Mother Hyperlipidemia Father Hyperlipidemia Brother Heart attack Brother Family Status - Relation Status Age at Mother Father Brother Brother [facility] 02-18-2025 36 Called and discussed with jay pt the HIDA and MRCP in details. ----- Message from Gisela sent at 02/11/2025 3:15 PM EDT ----- Patient calling for results and follow up plan. Office visit with you and Dr. Kimble 01/09/25 [facility] 36 ----- Message from Gisela sent at 02/11/2025 3:15 PM EDT ----- Patient calling for results and follow up plan. Office visit with you and Dr. Kimble 01/09/25 [facility] Telephoneon 02-18-2025 Telephone [id number] Diana Saleem ttrene 1965 F Date Provider Department Center 02/18/2025 385SANDRA BETHEA [facility] Family History Problem Relation Age of Onset Hyperlipidemia Mother Hyperlipidemia Father Hyperlipidemia Brother Heart attack Brother Family Status - Relation Status Age at Mother Father Brother Brother Normal [facility] 36on 02-11-2025 36 Patient called me to get results of HIDA scan and then what to do as follow up. I do see the HIDA scan results from 01/30/25 @ [facility] and they are normal will forward to Dr. Martin on of our [facility] [place] to see what further he would like to do. Normal [facility] Telephoneon 02-11-2025 Telephone [id number] Diana Saleem tte 1965 Date Provider Department Center 02/11/2025 396GISELA ROCHA [facility] Family History Problem Relation Age of Onset Hyperlipidemia Mother Hyperlipidemia Father Hyperlipidemia Brother Heart attack Brother Family Status - Relation Status Age at Mother Father Brother Brother Normal [facility] NM HIDA W EJECTION FRACTIONo n 01-30-2025 [...] Prado M.D.. Not Vldtd Invalid Interpretation Code [facility] Elastase.pancreatic (Stl) [M ass/Mass]on 01-17-2025 Pancreatic Elastase, F 174 mcg/g Low >200 (Normal) [facility] Comment on above: Result Comment: NOTE Interpretation: Borderline (100-200 mcg/g); Consistent with slight to moderate pancreatic insufficiency Test Performed by: [facility] - [address] [address] [place] Operator: Andra Flores Ph.D.; CLIA# [id number] Performed By: #### 2 [id number] #### [facility] ([id number]) [address] [place] [address], [place] [address] 29on 01-09-2025 29 Addended by: CHAUNCEY KIMBLE on: 01/10/2025 08:32 AM Modules accepted: Level of Service [facility] Follow-Upon 01-09-2025 Follow-Up [id number] Diana Saleem tte 1965 F Date Provider Department Center 01/09/2025 375-CHAUNCEY KIMBLE [facility] GI [facility] Family History Problem Relation Age of Onset Hyperlipidemia Mother Hyperlipidemia Father Hyperlipidemia Brother Heart attack Brother Family Status - Relation Status Age at Mother Father Brother Brother Level of Service:91209 LA OFFICE/OUTPATIENT ESTABLISHED MOD MDM 30 MIN () Reason for Visit and Comments: Follow-up [305128] - MRI follow up and seen at [facility] and in hospital for 1 day. Will get records. Enzo helped tremendously this time and she came home with it, She just complains of fatigue. PCP Ordered sleep study [facility] 36on 01-02-2025 36 01/02/25@4849 Returned a phone call to patient. She had wanted to follow up with Dr. Chauncey Kimble to let him know she is currently in the ER at [facility] dx with pancreatitis. She had an MRCP on 12/31/24 and if any other lab work needs done to call the Hospital. Normal [facility] Telephoneon 01-02-2025 Telephone [id number] Diana Saleem ttrene 1965 Date Provider Department Center 01/02/2025 GISELA OMER [facility] Family History Problem Relation Age of Onset Hyperlipidemia Mother Hyperlipidemia Father Hyperlipidemia Brother Heart attack Brother Family Status - Relation Status Age at Mother Father Brother Brother [facility] MR ABDOMEN W AND WO CONTRAST [...] Landeros MD. Not Vldtd Invalid Interpretation Code [facility] Follow-Upon 12-12-2024 Follow-Up [id number] Diana Saleem ttrene 1965 F Date Provider Department Center 12/12/2024 CHAUNCEY CESPEDES [facility] GI [facility] Family History Problem Relation Age of Onset Hyperlipidemia Mother Hyperlipidemia Father Hyperlipidemia Brother Heart attack Brother Family Status - Relation Status Age at Mother Father Brother Brother Level of Service:36136 LA OFFICE/OUTPATIENT NEW MODERATE MDM 45 MINUTES (GC) Reason for Visit and Comments: Pancreatitis [147904] - Pain when she stresses or when she eats. She has trouble with losing weight as she always feels bloated and gassy. Normal [facility] XR Wrist - right 2 Viewson [...] Impression: No acute bony process Right Wrist [facility] Radiology Study observation (narrative) [facility] XR FOREARM RT 2 VWSon 2024 XR FOREARM RT 2 VWS XR FOREARM RT 2 VWS CLINICAL INFORMATION: Right arm pain TECHNIQUE: XR FOREARM RT 2 VWS 2 views right forearm are obtained. There is no acute osseous, articular, or soft tissue abnormality. IMPRESSION: Negative exam. Finalized by Afshin Barrett MD on 10/11/2024 1:59 PM Normal [facility] ECG 12 lead ECGon 08-22-2024 ECG 12 lead ECG [facility] Main [place] [address] [place] [address] Electrocardiograph Report Signed Patient: Jose Alberto Saleem MR#: [id number] : 1965 Acct:[id number] Age/Sex: 59 / F ADM Date: 08/20/24 Loc: Room: [address] [place] [address] Type: DIS IN Attending Dr: Kaiser Quijano [...] abnormality Abnormal ECG Confirmed by Bella Stein ([id number]) on 08/22/2024 11:33:07 PM Referred By: Bella Stein Electronically Signed By: Bella Stein Transcribed By: MUS Signed By Bella Stein MD 4 2333 Normal [facility] Troponin I High Sensitivityo n 08-22-2024 Troponin I High Sensitivity 1211.6 pg/mL Off scale high 0.0-15.0 [facility] Comment on above: Result Comment: Crit ical Result : Called to and read back by: ROB MCDONALD at: 08/22/2024 06:38:37 by:RAMONA PERFORMED BY: [place] [address] PATHOLOGIST EXCAVATING MACHINE OPERATOR JANA OLMEDO M.D. Performed By: #### H S TROP ####[facility] [id number] [place] [address] [facility] Blood Urea Nitrogenon 2023 Urea nitrogen [Mass/Vol] 14 mg/dL Normal 7-25 [facility] Comment on above: Performed By: #### C REAT, BUN, PP, CBC, LYTES ####[place] [id number] [place] [address] [facility] Coagulation Profileon 2023 aPTT Coag (Bld) [Time] 35.9 s Normal 25.1-36.5 [facility] Comment on above: Result Comment: A he matocrit value greater than 55% may lead to inaccurate results in coagulation testing. Patients having hematocrit values >55% require a special collection tube for coagulation studies. Please contact the laboratory at [phone] for redraw instructions. PERFORMED BY: [address] [place] [id number] PATHOLOGIST EXCAVATING MACHINE OPERATOR JANA OLMEDO M.D. Performed By: #### C REAT, BUN, PP, CBC, LYTES ####[place] [id number] [facility] INR Coag (PPP) [Relative time] 1.1 {INR} Normal [facility] Comment on above: Result [...] #### C REAT, BUN, PP, CBC, LYTES ####[place] [id number] [facility] PT Coag (PPP) [Time] 12.2 s Normal 9.0-12.9 [facility] Comment on above: Result Comment: A he matocrit value greater than 55% may lead to inaccurate results in coagulation testing. Patients having hematocrit values >55% require a special collection tube for coagulation studies. Please contact the laboratory at [phone] for redraw instructions. Performed By: #### C REAT, BUN, PP, CBC, LYTES ####[address] Complete Blood Count Auto Di ffon 08-21-2024 Basophils (Bld) [#/Vol] 0.0 10*3/uL Normal 0.0-0.2 The [facility] Comment on above: Result Comment: PERF ORMED BY: [facility] [address] [place] [address] PATHOLOGIST EXCAVATING MACHINE OPERATOR JANA OLMEDO M.D. Performed By: #### C REAT, BUN, PP, CBC, LYTES ####[address] Basophils/100 WBC (Bld) 0.3 % Normal . [facility] Comment on above: Performed By: #### C REAT, BUN, PP, CBC, LYTES ####[address] Eosinophils (Bld) [#/Vol] 0.2 10*3/uL Normal 0.0-0.45 The [facility] Comment on above: Performed By: #### C REAT, BUN, PP, CBC, LYTES ####[address] Eosinophils/100 WBC (Bld) 3.9 % Normal . [facility] Comment on above: Performed By: #### C REAT, BUN, PP, CBC, LYTES ####[address] Erythrocyte distribution width (RBC) [Ratio] 12.7 % Normal 11.9-15.3 The [facility] Comment on above: Performed By: #### C REAT, BUN, PP, CBC, LYTES ####[address] Hematocrit (Bld) [Volume fraction] 42.5 % Normal 34.0-46.4 The [facility] Comment on above: Performed By: #### C REAT, BUN, PP, CBC, LYTES ####[address] Hemoglobin (Bld) [Mass/Vol] 14.6 g/dL Normal 11.8-15.4 The [facility] Comment on above: Performed By: #### C REAT, BUN, PP, CBC, LYTES ####[address] Lymphocytes (Bld) [#/Vol] 1.7 10*3/uL Normal 1.00-4.8 The [facility] [facility] Comment on above: Performed By: #### C REAT, BUN, PP, CBC, LYTES ####[address] Lymphocytes/100 WBC (Bld) 35.0 % Normal . [facility] Comment on above: Performed By: #### C REAT, BUN, PP, CBC, LYTES ####[address] MCH (RBC) [Entitic mass] 30.8 pg Normal 24.7-34.3 The [facility] Comment on above: Performed By: #### C REAT, BUN, PP, CBC, LYTES ####[address] MCV (RBC) [Entitic vol] 89.8 fL Normal 80-100 [facility] Comment on above: Performed By: #### C REAT, BUN, PP, CBC, LYTES ####[address] Mean Corpuscular HGB Conc 34.3 g/dL Normal 32.0-35.0 The [facility] Comment on above: Performed By: #### C REAT, BUN, PP, CBC, LYTES ####[address] Monocytes (Bld) [#/Vol] 0.5 10*3/uL Normal 0.0-0.8 The [facility] Comment on above: Performed By: #### C REAT, BUN, PP, CBC, LYTES ####[address] Monocytes/100 WBC (Bld) 10.9 % Normal . [facility] Comment on above: Performed By: #### C REAT, BUN, PP, CBC, LYTES ####[address] Neutrophils (Bld) [#/Vol] 2.5 10*3/uL Normal 1.8-7.7 The [facility] Comment on above: Performed By: #### C REAT, BUN, PP, CBC, LYTES ####[address] Neutrophils/100 WBC (Bld) 49.9 % Normal . [facility] Comment on above: Performed By: #### C REAT, BUN, PP, CBC, LYTES ####[address] NRBC% 0.1 /100{WBC} Normal 0-0.5 The [facility] Comment on above: Performed By: #### C REAT, BUN, PP, CBC, LYTES ####[address] Platelet mean volume (Bld) [Entitic vol] 7.7 fL Normal 6.3-10.7 The Located within [facility] Comment on above: Performed By: #### C REAT, BUN, PP, CBC, LYTES ####[address] Platelets (Bld) [#/Vol] 172 10*3/uL Normal 150-450 [facility] Comment on above: Performed By: #### C REAT, BUN, PP, CBC, LYTES ####[address] RBC (Bld) [#/Vol] 4.73 10*6/uL Normal 3.60-5.00 The [facility] Comment on above: Performed By: #### C REAT, BUN, PP, CBC, LYTES ####[place] [id number] [place] [id number] [facility] WBC (Bld) [#/Vol] 4.9 10*3/uL Normal 3.8-11.6 The [facility] Comment on above: Performed By: #### C REAT, BUN, PP, CBC, LYTES ####[place] [id number] [place] [address] [facility] Creatinineon 08-21-2024 Creatinine [Mass/Vol] 0.61 mg/dL Normal 0.60-1.20 The [facility] Comment on above: Performed By: #### C REAT, BUN, PP, CBC, LYTES ####[place] [id number] [facility] Creatinine Clr Calc Pharmacy 97.73 Normal [facility] Comment on above: Result Comment: PERF ORMED BY: [place] [address] PATHOLOGIST EXCAVATING MACHINE OPERATOR JANA OLMEDO M.D. Performed By: #### C REAT, BUN, PP, CBC, LYTES ####[place] [id number] [facility] GFR/1.73 sq M.predicted MDRD (S/P/Bld) [Vol rate/Area] mL/min/{1.73_m2} Normal [facility] [facility] Comment on above: Performed By: #### C REAT, BUN, PP, CBC, LYTES ####[place] [id number] [facility] ECG 12 lead ECGon 08-21-2024 ECG 12 lead ECG [facility] Main [place] [address] [place] [address] Electrocardiograph Report Signed Patient: Jose Alberto Saleem MR#: [id number] : 1965 Acct:[id number] Age/Sex: 59 / F ADM Date: 08/20/24 Loc: Room: [address] [place] [address] Type: DIS IN Attending Dr: Kaiser Quijano [...] abnormality Abnormal ECG Confirmed by Bella Stein ([id number]) on 08/22/2024 11:33:52 PM Referred By: Bella Stein Electronically Signed By: Bella Stein Transcribed By: [facility] Signed By Bella Stein MD 4 2333 Normal [facility] Electrolyteson 08-21-2024 Anion gap [Moles/Vol] 11.0 mmol/L Normal 6.0-15.0 Th e [facility] Comment on above: Performed By: #### C REAT, BUN, PP, CBC, LYTES ####[address] Chloride [Moles/Vol] 105 mmol/L Normal 98-107 The [facility] Comment on above: Performed By: #### C REAT, BUN, PP, CBC, LYTES ####[address] CO2 [Moles/Vol] 27.9 mmol/L Normal 21.0-31.0 The [facility] Comment on above: Performed By: #### C REAT, BUN, PP, CBC, LYTES ####[address] Potassium [Moles/Vol] 3.9 mmol/L Normal 3.5-5.1 The [facility] Comment on above: Performed By: #### C REAT, BUN, PP, CBC, LYTES ####[address] Sodium [Moles/Vol] 140 mmol/L Normal 136-145 The [facility] Comment on above: Performed By: #### C REAT, BUN, PP, CBC, LYTES ####[facility] [place] [address] [facility] NM lia perf SPECT rest stron 08-20-2024 NM lia perf SPECT rest str [facility] Main [place] [id number] Nuclear Medicine Report Signed Patient: Jose Alberto Saleem MR#: [id number] : 1965 Acct:[id number] Age/Sex: 59 / F ADM Date: 08/18/24 Loc: Room: [address] [place] [address] Type: ADM INOo Attending Dr: Chucky Dunn [...] Bella Stein M.D.08/20/2024 3:56 PM Dictation Location: [place] [address] Transcribed By: [facility] 08/20/24 1554 Dictated By: Bella Stein MD 08/20/24 1552 Signed By: 08/20/24 1556 Normal [facility] A1C with Estimated Average G rebekahlio 08-19-2024 Glucose [Mass/Vol] 117 mg/dL Normal The [facility] Comment on above: Result Comment: PERF ORMED BY: [address] [address] PATHOLOGIST EXCAVATING MACHINE OPERATOR JANA OLMEDO M.D. Performed By: #### A 1C [facility] eA, TROP ####[facility] [place] [address] [facility] HbA1c (Bld) [Mass fraction] 5.7 % High 4.3-5.6 The [facility] Comment on above: Result Comment: Incr eased risk for diabetes: 5.7 - 6.4 diabetes: >6.4 glycemic control for adults with diabetes: <7.0 Performed By: #### A 1C [facility] eA, HS TROP ####[facility] [id number] [place] [address] [facility] ECG 12 lead ECGon 08-19-2024 ECG 12 [place] [address] Electrocardiograph Report Signed Patient: Jose Alberto Saleem MR#: [id number] : 1965 Acct:[id number] Age/Sex: 59 / F ADM Date: 08/18/24 Loc: Room: [address] [place] [address] Type: ADM INOo Attending Dr: Chucky Dunn [...] abnormality Abnormal ECG Confirmed by Bella Stein ([id number]) on 08/21/2024 12:00:39 AM Referred By: Bella Stein Electronically Signed By: Bella Stein Transcribed By: MUS Signed By Bella Stein MD 4 0000 Normal [facility] ECG 12 lead ECG [facility] [place] [place] [address] Electrocardiograph Report Signed Patient: Jose Alberto Saleem MR#: [id number] : 1965 Acct:[id number] Age/Sex: 59 / F ADM Date: 08/18/24 Loc: 3T Room: [address] [place] [address] Type: ADM INOo Attending Dr: Chucky Dunn [...] rhythm Leftward axis Confirmed by Bridgett Monreal ([id number]) on 08/20/2024 11:52:24 PM Referred By: Bella Stein Electronically Signed By: Bridgett Monreal Transcribed By: MUS Signed By Bridgett Monreal MD 08/20/24 2352 Normal [facility] Troponin I High Sensitivityo n 08-19-2024 Troponin I High Sensitivity 4.6 pg/mL Normal 0.0-15.0 The [facility] Comment on above: Result Comment: PERF ORMED BY: [place] [address] PATHOLOGIST EXCAVATING MACHINE OPERATOR JANA OLMEDO M.D. Performed By: #### A 1C [facility] ####[place] [id number] [facility] X-ray reportOrdered By: Anna Wick on 08-19-2024 [place] [address] XRay Report Signed Patient: Jose Alberto Saleem MR#: [id number] : 1965 Acct:[id number] Age/Sex: 59 / F ADM Date: 4 Loc: 3T Room: [address] [place] [address] Type: ADM INOo Attending Dr: Donis Arroyo [...] Thelma Wick M.D.08/19/2024 12:10 AM Dictation Location: [place] [address] Transcribed By: [facility] 08/19/249 Dictated By: Thelma Wick MD 08/18/242210 Signed By: 08/19/249 [facility] Work Phone: Alanine aminotransferase [En zymatic activity/volume] in Serum or PlasmaOrdered By: Lynnette Chapman on 08-18-2024 ALT [Catalytic activity/Vol] Alanine aminotransferase [Enzymatic activity/volume] in Serum or Plasma 7-52 [facility] Albumin [Mass/volume] in Ser um or Plasma by Bromocresol green (BCG) dye binding methoOrdered By: Lynnette Chapman on 08-18-2024 Albumin BCG dye [Mass/Vol] Albumin [Mass/volume] in Serum or Plasma by Bromocresol green (BCG) dye binding metho 3.5-5.7 [facility] Alkaline phosphatase [Enzyma tic activity/volume] in Serum or PlasmaOrdered By: Lynnette Chapman on 08-18-2024 ALP [Catalytic activity/Vol] Alkaline phosphatase [Enzymatic activity/volume] in Serum or Plasma 34-104 [facility] Aspartate aminotransferase [ Enzymatic activity/volume] in Serum or PlasmaOrdered By: Lynnette Chapman on 08-18-2024 AST [Catalytic activity/Vol] Aspartate aminotransferase [Enzymatic activity/volume] in Serum or Plasma 13-39 [facility] B-Type Natriuretic Peptideon 08-18-2024 Natriuretic peptide B (Bld) [Mass/Vol] 31.0 pg/mL Normal 5-100 [facility] [facility] Comment on above: Result Comment: PERF ORMED BY: [place] [address] PATHOLOGIST EXCAVATING MACHINE OPERATOR JANA OLMEDO M.D. Performed By: #### H S TROP, LIPASE, PT, BMP, HEPATIC, CK, CBC, BNP ####[address] Basic Metabolic Panelon 08-01 Anion gap [Moles/Vol] 10.7 mmol/L Normal 6.0-15.0 [facility] Comment on above: Performed By: #### H S TROP, LIPASE, PT, BMP, HEPATIC, CK, CBC, BNP #### [address] Performed By: #### H S TROP, LIPASE, PT, BMP, HEPATIC, CK, CBC, BNP ####[address] Calcium [Mass/Vol] 10.1 mg/dL Normal 8.6-10.3 The [facility] Comment on above: Performed By: #### H S TROP, LIPASE, PT, BMP, HEPATIC, CK, CBC, BNP #### [address] Performed By: #### H S TROP, LIPASE, PT, BMP, HEPATIC, CK, CBC, BNP ####[address] Chloride [Moles/Vol] 102 mmol/L Normal 98-107 [facility] Comment on above: Performed By: #### H S TROP, LIPASE, PT, BMP, HEPATIC, CK, CBC, BNP #### [address] Performed By: #### H S TROP, LIPASE, PT, BMP, HEPATIC, CK, CBC, BNP ####[address] [address] [place] CO2 [Moles/Vol] 28.4 mmol/L Normal 21.0-31.0 The [facility] Comment on above: Performed By: #### H S TROP, LIPASE, PT, BMP, HEPATIC, CK, CBC, BNP #### [address] Performed By: #### H S TROP, LIPASE, PT, BMP, HEPATIC, CK, CBC, BNP ####[address] Creatinine [Mass/Vol] 0.62 mg/dL Normal 0.60-1.20 [facility] Comment on above: Performed By: #### H S TROP, LIPASE, PT, BMP, HEPATIC, CK, CBC, BNP #### [address] Performed By: #### H S TROP, LIPASE, PT, BMP, HEPATIC, CK, CBC, BNP ####[address] Creatinine Clr Calc Pharmacy 95.72 Normal [facility] Comment on above: Result Comment: PERF ORMED BY: [place] [address] PATHOLOGIST EXCAVATING MACHINE OPERATOR JANA OLMEDO M.D. Performed By: #### H S TROP, LIPASE, PT, BMP, HEPATIC, CK, CBC, BNP #### [address] Performed By: #### H S TROP, LIPASE, PT, BMP, HEPATIC, CK, CBC, BNP ####[address] GFR/1.73 sq M.predicted MDRD (S/P/Bld) [Vol rate/Area] mL/min/{1.73_m2} Normal [facility] [facility] Comment on above: Performed By: #### H S TROP, LIPASE, PT, BMP, HEPATIC, CK, CBC, BNP #### [facility] [address] [place] [address] [place] Performed By: #### H S TROP, LIPASE, PT, BMP, HEPATIC, CK, CBC, BNP ####[address] Glucose [Mass/Vol] 94 mg/dL Normal 70-100 The [facility] Comment on above: Result Comment: [facility] Glucose Reference Range is dependent on time and content of last meal. Glucose of more than 200 mg/dL in a nonstressed, ambulatory subject supports the diagnosis of Diabetes Mellitus. ADA recommended reference range Performed By: #### H S TROP, LIPASE, PT, BMP, HEPATIC, CK, CBC, BNP #### [address] Performed By: #### H S TROP, LIPASE, PT, BMP, HEPATIC, CK, CBC, BNP ####[address] Potassium [Moles/Vol] 4.1 mmol/L Normal 3.5-5.1 [facility] [facility] Comment on above: Performed By: #### H S TROP, LIPASE, PT, BMP, HEPATIC, CK, CBC, BNP #### [address] Performed By: #### H S TROP, LIPASE, PT, BMP, HEPATIC, CK, CBC, BNP ####[address] Sodium [Moles/Vol] 137 mmol/L Normal 136-145 The [facility] Comment on above: Performed By: #### H S TROP, LIPASE, PT, BMP, HEPATIC, CK, CBC, BNP #### [address] Performed By: #### H S TROP, LIPASE, PT, BMP, HEPATIC, CK, CBC, BNP ####[address] Urea nitrogen [Mass/Vol] 22 mg/dL Normal 7-25 [facility] [facility] Comment on above: Performed By: #### H S TROP, LIPASE, PT, BMP, HEPATIC, CK, CBC, BNP #### [address] [place] [address] [place] Performed By: #### H S TROP, LIPASE, PT, BMP, HEPATIC, CK, CBC, BNP ####[facility] [id number] Basophils Auto (Bld) [#/Vol] Ordered By: Lynnette Chapman on 08-18-2024 Basophils (Bld) [#/Vol] Automated basophil count 0.0-0.2 [facility] Basophils/100 WBC Auto (Bld) Ordered By: Lynnette Chapman on 08-18-2024 Basophils/100 WBC (Bld) Automated basophil % . [facility] Bilirubin.direct [Mass/volum e] in Serum or PlasmaOrdered By: Lynnette Chapman on 08-18-2024 Bilirubin.direct [Mass/Vol] Bilirubin.direct [Mass/volume] in Serum or Plasma 0.03-0.18 [facility] Bilirubin.total [Mass/volume ] in Serum or PlasmaOrdered By: Lynnette Chapman on 08-18-2024 Bilirubin [Mass/Vol] Bilirubin.total [Mass/volume] in Serum or Plasma 0.3-1.0 [facility] Calcium [Mass/volume] in Ser um or PlasmaOrdered By: Lynnette Chapman on 08-18-2024 Calcium [Mass/Vol] Calcium [Mass/volume ] in Serum or Plasma 8.6-10.3 [facility] Carbon dioxide, total [Moles /volume] in Serum or PlasmaOrdered By: Lynnette Chapman on 08-18-2024 CO2 [Moles/Vol] Carbon dioxide, tota l [Moles/volume] in Serum or Plasma 21.0-31.0 [facility] Chloride [Moles/volume] in S nina or PlasmaOrdered By: Lynnette Chapman on 08-18-2024 Chloride [Moles/Vol] Chloride [Moles/vol ume] in Serum or Plasma 98-107 [facility] Complete Blood Count Auto Di ffon 08-18-2024 Basophils (Bld) [#/Vol] 0.0 10*3/uL Normal 0.0-0.2 [facility] [facility] Comment on above: Result Comment: PERF ORMED BY: [facility] [address] [place] [address] PATHOLOGIST EXCAVATING MACHINE OPERATOR JANA OLMEDO M.D. Performed By: #### H S TROP, LIPASE, PT, BMP, HEPATIC, CK, CBC, BNP #### [address] Basophils/100 WBC (Bld) 0.7 % Normal . [facility] [facility] Comment on above: Performed By: #### H S TROP, LIPASE, PT, BMP, HEPATIC, CK, CBC, BNP #### [address] Eosinophils (Bld) [#/Vol] 0.2 10*3/uL Normal 0.0-0.45 [facility] [facility] Comment on above: Performed By: #### H S TROP, LIPASE, PT, BMP, HEPATIC, CK, CBC, BNP #### [address] Eosinophils/100 WBC (Bld) 3.5 % Normal . [facility] [facility] Comment on above: Performed By: #### H S TROP, LIPASE, PT, BMP, HEPATIC, CK, CBC, BNP #### [address] Erythrocyte distribution width (RBC) [Ratio] 12.6 % Normal 11.9-15.3 [facility] [facility] Comment on above: Performed By: #### H S TROP, LIPASE, PT, BMP, HEPATIC, CK, CBC, BNP #### [address] Hematocrit (Bld) [Volume fraction] 43.7 % Normal 34.0-46.4 [facility] [facility] Comment on above: Performed By: #### H S TROP, LIPASE, PT, BMP, HEPATIC, CK, CBC, BNP #### [address] Hemoglobin (Bld) [Mass/Vol] 15.1 g/dL Normal 11.8-15.4 [facility] [facility] Comment on above: Performed By: #### H S TROP, LIPASE, PT, BMP, HEPATIC, CK, CBC, BNP #### [address] Lymphocytes (Bld) [#/Vol] 2.2 10*3/uL Normal 1.00-4.8 [facility] [facility] Comment on above: Performed By: #### H S TROP, LIPASE, PT, BMP, HEPATIC, CK, CBC, BNP #### [address] Lymphocytes/100 WBC (Bld) 36.5 % Normal . [facility] [facility] Comment on above: Performed By: #### H S TROP, LIPASE, PT, BMP, HEPATIC, CK, CBC, BNP #### [address] MCH (RBC) [Entitic mass] 30.7 pg Normal 24.7-34.3 [facility] [facility] Comment on above: Performed By: #### H S TROP, LIPASE, PT, BMP, HEPATIC, CK, CBC, BNP #### [address] MCV (RBC) [Entitic vol] 88.8 fL Normal 80-100 [facility] [facility] Comment on above: Performed By: #### H S TROP, LIPASE, PT, BMP, HEPATIC, CK, CBC, BNP #### [address] Mean Corpuscular HGB Conc 34.5 g/dL Normal 32.0-35.0 [facility] [facility] Comment on above: Performed By: #### H S TROP, LIPASE, PT, BMP, HEPATIC, CK, CBC, BNP #### [address] Monocytes (Bld) [#/Vol] 0.6 10*3/uL Normal 0.0-0.8 [facility] [facility] Comment on above: Performed By: #### H S TROP, LIPASE, PT, BMP, HEPATIC, CK, CBC, BNP #### [address] Monocytes/100 WBC (Bld) 16.97 % Normal 0.00-20.00 [facility] [facility] Comment on above: Performed By: #### H S TROP, LIPASE, PT, BMP, HEPATIC, CK, CBC, BNP #### [address] Monocytes/100 WBC (Bld) 10.5 % Normal . [facility] [facility] Comment on above: Performed By: #### H S TROP, LIPASE, PT, BMP, HEPATIC, CK, CBC, BNP #### [address] Neutrophils (Bld) [#/Vol] 3.0 10*3/uL Normal 1.8-7.7 [facility] [place] [facility] Comment on above: Performed By: #### H S TROP, LIPASE, PT, BMP, HEPATIC, CK, CBC, BNP #### [address] Neutrophils/100 WBC (Bld) 48.8 % Normal . [facility] [facility] Comment on above: Performed By: #### H S TROP, LIPASE, PT, BMP, HEPATIC, CK, CBC, BNP #### [address] NRBC% 0.1 /100{WBC} Normal 0-0.5 The [facility] Comment on above: Performed By: #### H S TROP, LIPASE, PT, BMP, HEPATIC, CK, CBC, BNP #### [address] Platelet mean volume (Bld) [Entitic vol] 7.9 fL Normal 6.3-10.7 The Located within [facility] Comment on above: Performed By: #### H S TROP, LIPASE, PT, BMP, HEPATIC, CK, CBC, BNP #### [address] Platelets (Bld) [#/Vol] 204 10*3/uL Normal 150-450 [facility] [facility] Comment on above: Performed By: #### H S TROP, LIPASE, PT, BMP, HEPATIC, CK, CBC, BNP #### [address] RBC (Bld) [#/Vol] 4.92 10*6/uL Normal 3.60-5.00 The [facility] Comment on above: Performed By: #### H S TROP, LIPASE, PT, BMP, HEPATIC, CK, CBC, BNP #### [facility] [address] WBC (Bld) [#/Vol] 6.1 10*3/uL Normal 3.8-11.6 The [facility] Comment on above: Performed By: #### H S TROP, LIPASE, PT, BMP, HEPATIC, CK, CBC, BNP #### [facility] [address] Creatine Kinaseon 08-18-2024 CK [Catalytic activity/Vol] 53 U/L Normal 30-223 [facility] [facility] Comment on above: Performed By: #### H S TROP, LIPASE, PT, BMP, HEPATIC, CK, CBC, BNP ####[facility] Creatine kinase [Enzymatic a ctivity/volume] in Serum or PlasmaOrdered By: Lynnette Chapman on 08-18-2024 CK [Catalytic activity/Vol] Creatine kinase [Enzymatic activity/volume] in Serum or Plasma 30-223 [facility] Creatinine [Mass/volume] in Serum or PlasmaOrdered By: Lynnette Chapman on 08-18-2024 Creatinine [Mass/Vol] Creatinine [Mass/v olume] in Serum or Plasma 0.60-1.20 [facility] ECG 12 lead ECGon 08-18-2024 ECG 12 lead ECG [facility] [address] Electrocardiograph Report Signed Patient: Jose Alberto Saleem MR#: [id number] 571 : 1965 Acct:[id number] Age/Sex: 59 / F ADM Date: 08/18/24 Loc: ER Room: Type: [facility] ER Attending Dr: Ordering Provider: Lynnette [...] ST and T wave abnormality Confirmed by Lynnetet Chapman MD ([id number]) on 08/18/2024 11:22:40 PM Referred By: Electronically Signed By: Lynnette Chapman MD Transcribed By: MUS Signed By Lynnette Chapman MD 08/01 05/24 6264 Normal [facility] Eosinophils Auto (Bld) [#/Vo l]Ordered By: Lynnette Chapman on 08-18-2024 Eosinophils (Bld) [#/Vol] Automated eosinophil count 0.0-0.45 [facility] Eosinophils/100 WBC Auto (Bl d)Ordered By: Lynnette Chapman on 08-18-2024 Eosinophils/100 WBC (Bld) Automated eosinophil % . [facility] Erythrocyte distribution wid th Auto (RBC) [Ratio]Ordered By: Lynnette Chapman on 08-18-2024 Erythrocyte distribution width (RBC) [Ratio] Erythrocyte distribution width [Ratio] by Automated count 11.9-15.3 [facility] Globulin Calc (S) [Mass/Vol] Ordered By: Lynnette Chapman on 08-18-2024 Globulin (S) [Mass/Vol] Serum globulin measurement by calculation (mass/volume) [facility] Glucose [Mass/volume] in Ser um or PlasmaOrdered By: Lynnette Chapman on 08-18-2024 Glucose [Mass/Vol] Glucose [Mass/volume ] in Serum or Plasma 70-100 [facility] Comment on above: ADA recommended refe rence rangeRandom Glucose Reference Range is dependent on time and content of last meal. Glucose of more than 200 mg/dL in a nonstressed, ambulatory subject supports the diagnosis of Diabetes Mellitus. Hematocrit Auto (Bld) [Volum e fraction]Ordered By: Lynnette Chapman on 08-18-2024 Hematocrit (Bld) [Volume fraction] Hematocrit [Volume Fraction] of Blood by Automated count 34.0-46.4 [facility] Hemoglobin [Mass/volume] in BloodOrdered By: Lynnette Chapman on 08-18-2024 Hemoglobin (Bld) [Mass/Vol] Hemoglobin [Mass/volume] in Blood 11.8-15.4 [facility] Hepatic Panelon 08-18-2024 Albumin [Mass/Vol] 4.3 g/dL Normal 3.5-5.7 [facility] Comment on above: Performed By: #### H S TROP, LIPASE, PT, BMP, HEPATIC, CK, CBC, BNP ####[address] Albumin/Globulin [Mass ratio] 1.7 {ratio} Normal [facility] Comment on above: Performed By: #### H S TROP, LIPASE, PT, BMP, HEPATIC, CK, CBC, BNP ####[address] ALP [Catalytic activity/Vol] 89 U/L Normal 34-104 [facility] Comment on above: Performed By: #### H S TROP, LIPASE, PT, BMP, HEPATIC, CK, CBC, BNP ####[address] ALT [Catalytic activity/Vol] 42 U/L Normal 7-52 [facility] Comment on above: Performed By: #### H S TROP, LIPASE, PT, BMP, HEPATIC, CK, CBC, BNP ####[address] AST [Catalytic activity/Vol] 31 U/L Normal 13-39 [facility] Comment on above: Performed By: #### H S TROP, LIPASE, PT, BMP, HEPATIC, CK, CBC, BNP ####[address] Bilirubin [Mass/Vol] 0.4 mg/dL Normal 0.3-1.0 [facility] Comment on above: Performed By: #### H S TROP, LIPASE, PT, BMP, HEPATIC, CK, CBC, BNP ####[address] Bilirubin,Indirect 0.3 mg/dL Normal [facility] Comment on above: Performed By: #### H S TROP, LIPASE, PT, BMP, HEPATIC, CK, CBC, BNP ####[address] [place] [address] [facility] Bilirubin.indirect [Mass/Vol] 0.10 mg/dL Normal 0.03-0.18 [facility] Comment on above: Performed By: #### H S TROP, LIPASE, PT, BMP, HEPATIC, CK, CBC, BNP ####[place] [id number] [address] Globulin (S) [Mass/Vol] 2.6 g/dL Normal [facility] Comment on above: Performed By: #### H S TROP, LIPASE, PT, BMP, HEPATIC, CK, CBC, BNP ####[place] [id number] [address] Protein [Mass/Vol] 6.9 g/dL Normal 6.4-8.9 [facility] Comment on above: Performed By: #### H S TROP, LIPASE, PT, BMP, HEPATIC, CK, CBC, BNP ####[address] INR in Platelet poor plasma by Coagulation assayOrdered By: Lynnette Chapman on 08-18-2024 INR Coag (PPP) [Relative time] INR in Platelet poor plasma by Coagulation assay [facility] Comment on above: INR Therapeutic Rang [...] in Blood by Automated coun 3.8-11.6 [facility] Lipaseon 08-18-2024 Lipase [Catalytic activity/Vol] 110.0 U/L High 11.0-82.0 [facility] Comment on above: Result Comment: PERF ORMED BY: [facility] [address] [place] [id number] PATHOLOGIST EXCAVATING MACHINE OPERATOR JANA OLMEDO M.D. Performed By: #### H S TROP, LIPASE, PT, BMP, HEPATIC, CK, CBC, BNP ####[facility] [id number] [place] [id number] [facility] Lipase [Enzymatic activity/v olume] in Serum or PlasmaOrdered By: Lynnette Chapman on 08-18-2024 Lipase [Catalytic activity/Vol] Lipase [Enzymatic activity/volume] in Serum or Plasma High 11.0-82.0 [facility] Lymphocytes Auto (Bld) [#/Vo l]Ordered By: Lynnette Chapman on 08-18-2024 Lymphocytes (Bld) [#/Vol] Lymphocytes [#/volume] in Blood by Automated count 1.00-4.8 [facility] Lymphocytes/100 WBC Auto (Bl d)Ordered By: Lynnette Chapman on 08-18-2024 Lymphocytes/100 WBC (Bld) Lymphocytes/100 leukocytes in Blood by Automated count . [facility] MCH Auto (RBC) [Entitic mass ]Ordered By: Lynnette Chapman on 08-18-2024 MCH (RBC) [Entitic mass] MCH [Entitic mass] by Automated count 24.7-34.3 [facility] MCHC Auto (RBC) [Mass/Vol]Or dered By: Lynnette Chapman on 08-18-2024 MCHC (RBC) [Mass/Vol] MCHC [Mass/volume] by Automated count 32.0-35.0 [facility] MCV Auto (RBC) [Entitic vol] Ordered By: Lynnette Chapman on 08-18-2024 MCV (RBC) [Entitic vol] MCV [Entitic volume] by Automated count 80-100 [facility] Monocyte distribution width [Entitic volume] in Blood by AutomatedOrdered By: Lynnette Chapman on 08-18-2024 Monocyte distribution width Auto (Bld) [Entitic vol] Monocyte distribution width [Entitic volume] in Blood by Automated 0.00-20.00 [facility] Monocytes Auto (Bld) [#/Vol] Ordered By: Lynnette Chapman on 08-18-2024 Monocytes (Bld) [#/Vol] Automated blood monocyte count 0.0-0.8 [facility] Monocytes/100 WBC Auto (Bld) Ordered By: Lynnette Chapman on 08-18-2024 Monocytes/100 WBC (Bld) Automated monocyte % . [facility] Natriuretic peptide B [Mass/ Vol]Ordered By: Lynnette Chapman on 08-18-2024 Natriuretic peptide B (Bld) [Mass/Vol] BNP ser/plas 5-100 [facility] Neutrophils Auto (Bld) [#/Vo l]Ordered By: Lynnette Chapman on 08-18-2024 Neutrophils (Bld) [#/Vol] Neutrophils [#/volume] in Blood by Automated count 1.8-7.7 [facility] Neutrophils/100 WBC Auto (Bl d)Ordered By: Lynnette Chapman on 08-18-2024 Neutrophils/100 WBC (Bld) Automated neutrophil % . [facility] No Panel InformationOrdered By: Lynnette Chapman on 08-18-2024 Estimated GFR (CKD-EPI) > 60.0 mL/Min [facility] Creatinine Clearance (Chem 95.72 [facility] Nucleated erythrocytes [Pres ence] in Blood by Automated countOrdered By: Lynnette Chapman on 08-18-2024 Nucleated RBC Auto Ql (Bld) Nucleated erythrocytes [Presence] in Blood by Automated count 0-0.5 [facility] Platelet mean volume Auto (B ld) [Entitic vol]Ordered By: Lynnette Chapman on 08-18-2024 Platelet mean volume (Bld) [Entitic vol] Platelet mean volume [Entitic volume] in Blood by Automated count 6.3-10.7 [facility] Platelets Auto (Bld) [#/Vol] Ordered By: Lynnette Chapman on 08-18-2024 Platelets (Bld) [#/Vol] Platelets [#/volume] in Blood by Automated count 150-450 [facility] Potassium [Moles/volume] in Serum or PlasmaOrdered By: Lynnette Chapman on 08-18-2024 Potassium [Moles/Vol] Potassium [Moles/v olume] in Serum or Plasma 3.5-5.1 [facility] Protein [Mass/volume] in Ser um or PlasmaOrdered By: Lynnette Chapman on 08-18-2024 Protein [Mass/Vol] Protein [Mass/volume ] in Serum or Plasma 6.4-8.9 [facility] Prothrombin Time INRon 08-18 INR Coag (PPP) [Relative time] 1.0 {INR} Normal [facility] Comment on above: Result [...] heart valves: 3 - 4.5 PERFORMED BY: [place] [address] PATHOLOGIST EXCAVATING MACHINE OPERATOR JANA OLMEDO M.D. Performed By: #### H S TROP, LIPASE, PT, BMP, HEPATIC, CK, CBC, BNP #### [facility] [address] [place] [address] PT Coag (PPP) [Time] 11.7 s Normal 9.0-12.9 [facility] Comment on above: Result Comment: A he matocrit value greater than 55% may lead to inaccurate results in coagulation testing. Patients having hematocrit values >55% require a special collection tube for coagulation studies. Please contact the laboratory at [phone] for redraw instructions. Performed By: #### H S TROP, LIPASE, PT, BMP, HEPATIC, CK, CBC, BNP #### [facility] [address] [place] [address] Prothrombin time (PT)Ordered By: Lynnette Chapman on 08-18-2024 PT Coag (PPP) [Time] Prothrombin time (PT) 9.0- 12.9 [facility] Comment on above: A hematocrit value g reater than 55% may lead to inaccurate results in coagulation testing. Patients having hematocrit values >55% require a special collection tube for coagulation studies. Please contact the laboratory at [phone] for redraw instructions. RBC Auto (Bld) [#/Vol]Ordere d By: Lynnette Chapman on 08-18-2024 RBC (Bld) [#/Vol] Erythrocytes [#/volu me] in Blood by Automated count 3.60-5.00 [facility] Serum or plasma albumin/glob ulin mass ratioOrdered By: Lynnette Chapman on 08-18-2024 Albumin/Globulin [Mass ratio] Serum or plasma albumin/globulin mass ratio [facility] Serum or plasma anion gap de terminationOrdered By: Lynnette Chapman on 08-18-2024 Anion gap [Moles/Vol] Serum or plasma an ion gap determination 6.0-15.0 [facility] Serum or plasma non-glucuron idated bilirubin measurement (mass/volume)Ordered By: Lynnette Chapman on 08-18-2024 Bilirubin.indirect [Mass/Vol] Serum or plasma non-glucuronidated bilirubin measurement (mass/volume) [facility] Sodium [Moles/volume] in Ser um or PlasmaOrdered By: Lynnette Chapman on 08-18-2024 Sodium [Moles/Vol] Sodium [Moles/volume ] in Serum or Plasma 136-145 [facility] Troponin I High Sensitivityo n 08-18-2024 Troponin I High Sensitivity 4.7 pg/mL Normal 0.0-15.0 [facility] Comment on above: Result Comment: PERF ORMED BY: [facility] [address] [place] [address] PATHOLOGIST EXCAVATING MACHINE OPERATOR JANA OLMEDO M.D. Performed By: #### H S TROP ####[address] [address] [facility] Troponin I High Sensitivity 5.1 pg/mL Normal 0.0-15.0 [facility] Comment on above: Result Comment: PERF ORMED BY: [facility] [address] [place] [address] PATHOLOGIST EXCAVATING MACHINE OPERATOR JANA OLMEDO M.D. Performed By: #### H S TROP, LIPASE, PT, BMP, HEPATIC, CK, CBC, BNP ####[address] [address] [facility] Troponin I.cardiac [Mass/vol ume] in Serum or Plasma by Detection limit <= 0.01 ng/Ordered By: Lynnette Chapman on 08-18-2024 Troponin I.cardiac DL <= 0.01 ng/mL [Mass/Vol] Troponin I.cardiac [Mass/volume] in Serum or Plasma by Detection limit <= 0.01 ng/ 0.0-15.0 [facility] Urea nitrogen [Mass/volume] in Serum or PlasmaOrdered By: Lynnette Chapman on 08-18-2024 Urea nitrogen [Mass/Vol] Urea nitrogen [Mass/volume] in Serum or Plasma 7-25 [facility] WBC Auto (Bld) [#/Vol]Ordere d By: Lynnette Chapman on 08-18-2024 WBC (Bld) [#/Vol] Leukocytes [#/volume ] in Blood by Automated count 3.8-11.6 [facility] XR chest 2V*on 08-18-2024 XR chest 2V* [facility] [place] [address] XRay Report Signed Patient: Jose Alberto Saleem MR#: [id number] 571 : 1965 Acct:[id number] Age/Sex: 59 / F ADM Date: 08/18/24 Loc: Room: [address] [place] [address] Type: ADM INOo Attending Dr: Donis Arroyo [...] Thelma Wick M.D.08/19/2024 12:10 AM Dictation Location: [place] [address] Transcribed By: [facility] 08/19/24 0010 Dictated By: Thelma Wick MD 08/18/24 7641 Signed By: 08/19/24 0010 Normal [facility] Reminderson 08-05-2024 Reminders Reminders From: Magdalena Longoria To: EU - Administrative; Sent: 08/05/2024 13:08:24 EST Show up: 03/01/2025 13:08:00 EDT Subject: 1 yr reminder Due Date/Time: 08/01/2025 13:08:00 EDT Reminder/Recall Patient needs scheduled with [facility] for a 1 yr f/u with [facility] Normal [facility] Urology Office/Clinic Noteon 08-05-2024 Urology Office/Clinic [...] Myrbetriq from 25mg to 50mg qd Ordered: 27248 Measure Post Void residual urine and/or bladder capacity by US- non-imaging E&M of Est. Patient Moderate 30-39 Min 03564 Urnls Dip Stick Auto w/o Microscopy POC 36550 2. Urethral pain (R39.89: Other symptoms and [...] tab(s), Refills(s) 3, Pharmacy: [facility] [id number], 160, cm, 08/05/24 11:29:00 EST, Height/Length Dosing, 74.2, kg, 08/05/24 11:29:00 EST, Weight Dosing tamsulosin, 0.4 mg = 1 cap(s), Oral, Daily, # 90 cap(s), Refills(s) 3, Pharmacy: [facility], 160, cm, 08/05/24 11:29:00 EST, Height/Length Dosing, 74.2, kg, 08/05/24 11:29:00 EST, Weight Dosing Follow-up With When Contact Information JENNIFER MARTINO PA-C, URL Within 1 year Additional Instructions: Patient Education Kidney Stones, Wvra-nc-Tnuw Problem List/Past Medical History Ongoing Anticoagulated Feeling (more content not included)... Normal [facility] Comment on above: Result Comment: Elec [...] wk f/u. Appointment due by 06/19/2024 in [place] with [facility] PT SCHEDULED JUL 03, [address] [facility] Urology Office/Clinic Noteon 04-10-2024 Urology Office/Clinic [...] E&M of Est. Patient High 40-54 Min 34692 Urnls Dip Stick Auto w/o Microscopy POC 54030 2. OAB (overactive bladder) (N32.81: Overactive bladder) [...] E&M of Est. Patient High 40-54 Min 40001 3. Urethral pain (R39.89: Other symptoms and [...] E&M of Est. Patient High 40-54 Min 45205 Orders: estradiol topical, See Instructions, 42.5 gm, Refill(s) 6, apply a pea-sized amount vaginally and around the urethra nightly x 3 weeks, then 3x per week thereafter, [facility] #[id number], 160, cm, 04/10/24 15:13:00 EDT, Height/Length Dosing, 74, kg, 04/10/24 15:13... mirabegron, 25 mg = 1 tab(s), Oral, Daily, do not fill both mirabegron AND vibegron. only fill whichever has lower co-pay., X 30 day(s), # 30 tab(s), Refills(s) 11, Pharmacy: [facility] #[id number], 160, cm, 04/10/24 15:13:00 EDT, Height/Length Dosing, 74, k... vibegron, 75 mg = 1 tab(s), Oral, Daily, X 30 day(s), # 30 tab(s), Refills(s) 11, Pharmacy: [facility] #[id number], 160, cm, 04/10/24 15:13:00 EDT, Height/Length Dosing, 74, kg, 04/10/24 15:13:00 EDT, Weight Dosing Total time spent reviewing previous notes/results/external documents, preparing the chart, conducting the encounter with the patient and family, ordering tests/medications, and documenting the encounter was 40 minutes. Follow-up With When Contact Information JENNIFER MARTINO PA-C, URL Within 3 months [address] [place] [address] Additional Instructions: Patient Education Kidney Stones, Qiae-uk-Lglh Problem List/Past Medical History Ongoing Anticoagulated Feeling of incomplete b (more content not included)... Normal [facility] Comment on above: Result Comment: Elec tronically Signed By: JENNIFER MARTINO PA-C\.br\Date and Time Signed: 04/10/24 16:09 EDT Glucose Glucometer (BldC) [M ass/Vol]on 03-06-2024 Glucose [Mass/Vol] 79 mg/dL Normal 65-99 [facility] 01-23-2024 Lab Reports [id number]#1.00TIFF Normal [facility] Lab Reports [id number]#1.00TIFF Normal [facility] 01-22-2024 Lab Reports [id number]#1.00TIFF Normal [facility] Lab Reports [id number]#1.00TIFF Normal [facility] Lab Reports [id number]#1.00TIFF Normal [facility] RAD - MISCon 01-22-2024 RAD - MISC [id number]#1.00TIFF Normal [facility] Surgical Pathology Reporton 06-18-2023 Surgical Pathology Report (NOTE) Path Number: [id number] -- Diagnosis -- ENDOMETRIAL CURETTINGS: -BENIGN ENDOMETRIAL [...] Microscopic Description Microscopic examination performed. Processing Lab: [facility] [address] [place] [phone] Interpretation Performed at [facility] [address] [place], [place] SURGICAL PATHOLOGY CONSULTATION Patient Name: JOSE ALBERTO SALEEM [facility] Rec: [id number] [facility] ANATOMIC PATHOLOGY [address] [place] [address]. [place], [place] [address] Normal [facility] NON OB TRANSVAGINALon US NON OB [...] Gaby Tello DO 06/05/23 Final result Normal [facility] Ceruloplasminon 12-12-2022 Ceruloplasmin 30.6 mg/dL 19.0-39.0 mg/dL [facility] Other Ferritinon 12-12-2022 Ferritin [Mass/Vol] 43.4577315 ng/mL Normal 11.0 -306.8 ng/mL [facility] Other Hepatitis A Antibody Totalon 12-12-2022 Hepatitis A Antibody Total Negative . [facility] Other Hepatitis B Surface Antibody on 12-12-2022 Hepatitis B Surface Antibody Non-Reactive Non Reactive [facility] Other Immunoglobulin Javi Immunoglobulin G 823 mg/dL 586-1602 mg/dL [facility] Other Liver-Kidney Microsomal Abon 12-12-2022 Liver-Kidney Microsomal Ab 1.1 0.0-20.0 [facility] Other Mitochondrial (M2) Antibodyo n 12-12-2022 Mitochondrial (M2) Antibody <20.0 0.0-20.0 [place] [facility] Other Smooth Muscle Antibodyon Smooth Muscle Antibody 5 0-19 No rt [facility] Other MR MRCPon 11-10-2022 MR MRCP [facility] [employer] Other MR MRCP [facility] [employer] Other MR MRCP [address] [facility] [employer] [place] [address] [facility] [employer] Other MR MRCP MRI Report [facility] [employer] [facility] Other MR MRCP Signed [place] [facility] Other MR MRCP Patient: Danika Saleem MR#: [id number] [facility] Other MR MRCP 5[address] [facility] Other MR MRCP : 1965 Acct:[id number] [employer] Other MR MRCP Age/Sex: 57 / F ADM Date: 11/10/22 [employer] [facility] Other MR MRCP Loc: MR Room: Type: [facility] [employer] Other MR MRCP Attending Dr: Evert salinas MD [employer] [facility] Other MR MRCP Copies to: Evert Bruno MD [employer] [facility] Other MR MRCP Ordering Provider: Marleny Bruno MD [employer] [facility] Other MR MRCP Date of Service: 11/10/22 [facility] Other MR MRCP MR/MR MRCP: Abdominal pain;Common bile duct dilatation;Elevated liver en [employer] Other MR MRCP MRCP [facility] [employer] [facility] Other MR MRCP CLINICAL DATA: [place] hayley lipase. Abnormal outside abdominal CT [employer] [facility] Other MR MRCP COMPARISON: CT abdom en 10/16/2022 [place] [facility] Other MR MRCP Multiecho imaging of the abdomen was performed along with radial imaging of the biliary tree. [facility] Other MR MRCP The gallbladder surgically absent. There is no significant intrahepatic biliary dilatation. The [employer] Other MR MRCP common duct is sligh tly prominent measuring up to 6 mm. It tapers toward the ampulla. No in [employer] [facility] Other MR MRCP traluminal filling defects are identified to suggest choledocholithiasis. The pancreatic duct is [employer] Other MR MRCP also borderline prom inent measuring 2 - 3 mm. No intrahepatic masses are identified. No pancreatic [employer] Other MR MRCP abnormalities are no hayley. The spleen and adrenal glands are within normal limits. There is no [employer] Other MR MRCP hydronephrosis. Ther e are right renal cysts. There is no aortic aneurysm. No adenopathy or [employer] Other MR MRCP ascites is seen. The re is no dilated bowel within the ecvls-[id number]-mzdp. [employer] [facility] Other MR MRCP M R/MR MRCP [employer] Other MR MRCP IMPRESSION: [employer] Other MR MRCP SLIGHTLY PROMINENT C OMMON DUCT, WITHOUT CHOLEDOCHOLITHIASIS. THIS MAY RELATE TO PREVIOUS [employer] Other MR MRCP CHOLECYSTECTOMY. [facility] [employer] Other MR MRCP RIGHT RENAL CYSTS. [employer] Other MR MRCP NO OTHER SIGNIFICANT MRI FINDINGS. [employer] [facility] Other MR MRCP Impression dictated by: Thelma Wick M.D.11/10/2022 7:00 PM [employer] Other MR MRCP Dictation Location: [place] [address] [employer] Other MR MRCP Transcribed By: PWS 11/10/221899 [employer] Other MR MRCP Dictated By: Thelma Wick MD 11/10/221849 [employer] Other MR MRCP Signed By: [employer] Other MR MRCP 11/10/221899 [employer] Other Albumin [Mass/volume] in Ser um or PlasmaOrdered By: Evert Bruno on 11-01-2022 Albumin [Mass/Vol] 4.0 g/dL 3.2-5.5 [facility] Direct bilirubin measurement Ordered By: Imsara Bruno on 11-01-2022 Bilirubin.direct [Mass/Vol] 0.1 mg/dL 0.0-0.4 [facility] Globulin Calc (S) [Mass/Vol] Ordered By: Imsara Bruno on 11-01-2022 Globulin (S) [Mass/Vol] 2.5 g/dL [facility] Hepatic Panelon 11-01-2022 Albumin [Mass/Vol] 4.246727 g/dL Normal 3.2-5.5 g/dL [employer] [facility] Other ALT [Catalytic activity/Vol] 94 U/L High 10-60 U/L [employer] Other Bilirubin [Mass/Vol] 0.6870079 mg/dL Normal 0.3- 1.2 mg/dL [employer] [facility] Other Bilirubin.indirect [Mass/Vol] 0.1485698 mg/dL Normal 0.0-0.4 mg/dL [employer] [facility] Other Protein [Mass/Vol] 6.715224 g/dL Normal 6.1-7.9 g/dL [employer] [facility] Other Hepatic Panel 0.5 mg/dL [employer] [facility] Other Hepatic Panel 2.5 g/dL [employer] [facility] Other Protein [Mass/volume] in Ser um or PlasmaOrdered By: Evert Bruno on 11-01-2022 Protein [Mass/Vol] 6.5 g/dL 6.1-7.9 [facility] Serum or plasma alanine li otransferase measurement without P-5'-P (enzymatic activiOrdered By: Evert Bruno on 11-01-2022 ALT No additional P-5'-P [Catalytic activity/Vol] 94 U/L 10-60 [facility] Serum or plasma albumin/glob ulin mass ratioOrdered By: Evert Bruno on 11-01-2022 Albumin/Globulin [Mass ratio] 1.6 {ratio} [facility] Serum or plasma alkaline monster sphatase measurement (enzymatic activity/volume)Ordered By: Evert Bruno on 11-01-2022 ALP [Catalytic activity/Vol] 93 U/L 32-92 [facility] Serum or plasma aspartate am inotransferase measurement (enzymatic activity/volume)Ordered By: Evert Bruno on 11-01-2022 AST [Catalytic activity/Vol] 66 U/L 10-42 [facility] Serum or plasma non-glucuron idated bilirubin measurement (mass/volume)Ordered By: Evert Bruno on 11-01-2022 Bilirubin.indirect [Mass/Vol] 0.5 mg/dL [facility] Serum or plasma total biliru bin measurement (mass/volume)Ordered By: Evert Bruno on 11-01-2022 Bilirubin [Mass/Vol] 0.6 mg/dL 0.3-1.2 [facility] CT ABDOMEN WO/W CONon 2022 [...] WILSON Date: 2022-10-17 08:23 Normal [facility] AMMONIAon 10-09-2022 Ammonia (P) [Moles/Vol] 10 umol/L Critically low 11-32 [facility] Comment on above: Performed By: #### A MY #### [facility] [address] [place] [address] Dr. Ayden Cam AMYLASEon 10-09-2022 Amylase [Catalytic activity/Vol] 144 U/L Critically high 25-115 [facility] Comment on above: Performed By: #### L IPA #### [facility] [address] [place] [address] Dr. Ayden Cam CBC AUTO DIFFon 10-09-2022 BASO # 0.0 103/ul Normal 0.0-0.1 [facility] Comment on above: Performed By: #### C BC #### [facility] [address] [place] [address] Dr. Ayden Cam Basophils/100 WBC (Bld) 0.2 % Normal 0.2-2.0 [facility] Comment on above: Performed By: #### C BC #### [facility] [address] [place] [address] Dr. Ayden Cam EO # 0.2 103/ul Normal 0.0-0.7 [facility] Comment on above: Performed By: #### C BC #### [facility] [address] [place] [address] Dr. Ayden Cam Eosinophils/100 WBC (Bld) 3.3 % Normal 0.9-7.0 [facility] Comment on above: Performed By: #### C BC #### [facility] [address] [place] [address] Dr. Ayden Cam Erythrocyte distribution width (RBC) [Ratio] 12.1 % Normal 11.0-15.0 [facility] Comment on above: Performed By: #### C BC #### [facility] [address] [place] [address] Dr. Ayden Cam Hematocrit (Bld) [Volume fraction] 40.0 % Normal 36.0-48.0 [facility] Comment on above: Performed By: #### C BC #### [facility] [address] [place] [address] Dr. Ayden Cam Hemoglobin (Bld) [Mass/Vol] 14.2 g/dL Normal 12.0-16.0 [facility] Comment on above: Performed By: #### C BC #### [facility] [address] [place] [address] Dr. Ayden Cam IG # 0.01 10e3/ul Normal 0.00-0.03 [facility] Comment on above: Performed By: #### C BC #### [facility] [address] [place] [address] Dr. Ayden Cam IG % 0.2 % Normal 0.0-0.5 [facility] Comment on above: Performed By: #### C BC #### [facility] [address] [place] [address] Dr. Ayden Cam LYMPH # 1.5 103/ul Normal 1.2-3.8 [facility] Comment on above: Performed By: #### C BC #### [facility] [address] [place] [address] Dr. Ayden Cam Lymphocytes/100 WBC (Bld) 24.2 % Normal 20.5-60.0 [facility] Comment on above: Performed By: #### C BC #### [facility] [address] [place] [address] Dr. Ayden Cam MANUAL DIFF REQ NO Normal [facility] Comment on above: Performed By: #### C BC #### [facility] [address] [place] [address] Dr. Ayden Cam MCH (RBC) [Entitic mass] 30.0 pg Normal 26.7-34.0 [facility] Comment on above: Performed By: #### C BC #### [facility] [address] [place] [address] Dr. Ayden Cam MCHC (RBC) [Mass/Vol] 35.5 g/dL Critically high 29.9-35.2 [facility] Comment on above: Performed By: #### C BC #### [facility] [address] [place] [address] Dr. Ayden Cam MCV (RBC) [Entitic vol] 84.4 fL Normal 81.0-99.0 [facility] Comment on above: Performed By: #### C BC #### [facility] [address] [place] [address] Dr. Ayden Cam MONO # 0.6 103/ul Normal 0.3-0.8 [facility] Comment on above: Performed By: #### C BC #### [facility] [address] [place] [address] Dr. Ayden Cam Monocytes/100 WBC (Bld) 10.3 % Normal 1.7-12.0 [facility] Comment on above: Performed By: #### C BC #### [facility] [address] [place] [address] Dr. Ayden Cam NEUT # 3.7 103/ul Normal 1.4-6.5 [facility] Comment on above: Performed By: #### C BC #### [facility] [address] [address] [address] Ayden Cam Neutrophils/100 WBC (Bld) 61.8 % Normal 43.0-75.0 [facility] Comment on above: Performed By: #### C BC #### [facility] [address] [place] [address] Dr. Ayden Cam Platelet mean volume (Bld) [Entitic vol] 9.0 fL Critically low 9.5-13.5 [facility] Comment on above: Performed By: #### C BC #### [facility] [address] [address] [address] Ayden Cam PLT 191 103/ul Normal 150-450 [facility] Comment on above: Performed By: #### C BC #### [facility] [address] [place] [address] Dr. Ayden Cam RBC 4.74 106/ul Normal 4.20-5.40 [facility] Comment on above: Performed By: #### C BC #### [facility] [address] [place] [address] Dr. Ayden Cam WBC 6.0 103/ul Normal 4.0-11.0 [facility] Comment on above: Performed By: #### C BC #### [facility] [address] [place] [address] Dr. Ayden Cam LIPASEon 10-09-2022 Lipase [Catalytic activity/Vol] 168.0 U/L Normal 73.0-393.0 [facility] Comment on above: Performed By: #### L ACT #### [facility] [address] [place] [address] Dr. Ayden Cam PROF 14(COMP METB)on 023 Albumin [Mass/Vol] 3.6 g/dL Normal 3.4-5.0 [facility] Comment on above: Performed By: #### L IPA #### [facility] [address] [place] [address] Dr. Ayden Cam Albumin/Globulin [Mass ratio] 1.1 {ratio} Normal [facility] Comment on above: Performed By: #### L IPA #### [facility] [address] [place] [address] Dr. Ayden Cam ALP [Catalytic activity/Vol] 93 U/L Normal 46-116 [facility] Comment on above: Performed By: #### L IPA #### [facility] [address] [address] [address] Ayden Cam ALT [Catalytic activity/Vol] 52 U/L Normal 14-59 [facility] Comment on above: Performed By: #### L IPA #### [facility] [address] [place] [address] Dr. Ayden Cam Anion gap [Moles/Vol] 10.2 mmol/L Normal [facility] Comment on above: Performed By: #### L IPA #### [facility] [address] [place] [address] Dr. Ayden Cam AST [Catalytic activity/Vol] 33 U/L Normal 15-37 [facility] Comment on above: Performed By: #### L IPA #### [facility] [address] [place] [address] Dr. Ayden Cam Bilirubin [Mass/Vol] 0.3 mg/dL Normal 0.2-1.0 [facility] Comment on above: Performed By: #### L IPA #### [facility] [address] [place] [address] Dr. Ayden Cam Calcium [Mass/Vol] 9.4 mg/dL Normal 8.5-10.1 [facility] Comment on above: Performed By: #### L IPA #### [facility] [address] [place] [address] Dr. Ayden Cam Chloride [Moles/Vol] 99 mmol/L Normal 98-107 [facility] Comment on above: Performed By: #### L IPA #### [facility] [address] [place] [address] Dr. Ayden Cam CO2 [Moles/Vol] 33.7 mmol/L Critically high 21.0-32.0 [facility] Comment on above: Performed By: #### L IPA #### [facility] [address] [place] [address] Dr. Ayden Cam Creatinine [Mass/Vol] 0.62 mg/dL Normal 0.55-1.02 [facility] Comment on above: Performed By: #### L IPA #### [facility] [address] [place] [address] Dr. Ayden Cam EGFR-AF MONGOLIAN >60 Normal >=60 [facility] Comment on above: Performed By: #### L IPA #### [facility] [address] [address] [address] Ayden Cam EGFR-NON AF MONGOLIAN >60 Normal >=60 [facility] Comment on above: Performed By: #### L IPA #### [facility] [address] [place] [address] Dr. Ayden Cam Globulin (S) [Mass/Vol] 3.4 g/dL Normal [facility] Comment on above: Performed By: #### L IPA #### [facility] [address] [place] [address] Dr. Ayden Cam Glucose [Mass/Vol] 105 mg/dL Normal 74-106 [facility] Comment on above: Performed By: #### L IPA #### [facility] [address] [place] [address] Dr. Ayden Cam Potassium [Moles/Vol] 3.9 mmol/L Normal 3.5-5.1 [facility] Comment on above: Performed By: #### L IPA #### [facility] [address] [place] [address] Dr. Ayden Cam Protein [Mass/Vol] 7.0 g/dL Normal 6.4-8.2 [facility] Comment on above: Performed By: #### L IPA #### [facility] [address] [address] [address] Ayden Cam Sodium [Moles/Vol] 139 mmol/L Normal 136-145 [facility] Comment on above: Performed By: #### L IPA #### [facility] [address] [place] [address] Dr. Ayden Cam Urea nitrogen [Mass/Vol] 28.0 mg/dL Critically high 7.0-18.0 [facility] Comment on above: Performed By: #### L IPA #### [facility] [address] [place] [address] Dr. Ayden Cam Urea nitrogen/Creatinine [Mass ratio] 45.2 mg/mg Normal [facility] Comment on above: Performed By: #### L IPA #### [facility] [address] [place] [address] Dr. Ayden aCm AMMONIAon 10-06-2022 Ammonia (P) [Moles/Vol] 16 umol/L Normal 11-32 [facility] Comment on above: Performed By: #### A MM #### [facility] [address] [place] [address] Dr. Ayden Cam AMYLASEon 10-06-2022 Amylase [Catalytic activity/Vol] 189 U/L Critically high 25-115 [facility] Comment on above: Performed By: #### L IPA #### [facility] [address] [place] [address] Dr. Ayden Cam CBC AUTO DIFFon 10-06-2022 BASO # 0.0 103/ul Normal 0.0-0.1 [facility] Comment on above: Performed By: #### C BC #### [facility] [address] [place] [address] Dr. Ayden Cam Basophils/100 WBC (Bld) 0.2 % Normal 0.2-2.0 [facility] Comment on above: Performed By: #### C BC #### [facility] [address] [place] [address] Dr. Ayden Cam EO # 0.3 103/ul Normal 0.0-0.7 [facility] Comment on above: Performed By: #### C BC #### [facility] [address] [place] [address] Dr. Ayden Cam Eosinophils/100 WBC (Bld) 5.2 % Normal 0.9-7.0 [facility] Comment on above: Performed By: #### C BC #### [facility] [address] [place] [address] Dr. Ayden Cam Erythrocyte distribution width (RBC) [Ratio] 12.3 % Normal 11.0-15.0 [facility] Comment on above: Performed By: #### C BC #### [facility] [address] [place] [address] Dr. Ayden Cam Hematocrit (Bld) [Volume fraction] 36.9 % Normal 36.0-48.0 [facility] Comment on above: Performed By: #### C BC #### [facility] [address] [place] [address] Dr. Ayden Cam Hemoglobin (Bld) [Mass/Vol] 12.4 g/dL Normal 12.0-16.0 [facility] Comment on above: Performed By: #### C BC #### [facility] [address] [place] [address] Dr. Ayden Cam IG # 0.01 10e3/ul Normal 0.00-0.03 [facility] Comment on above: Performed By: #### C BC #### [facility] [address] [place] [address] Dr. Ayden Cam IG % 0.2 % Normal 0.0-0.5 [facility] Comment on above: Performed By: #### C BC #### [facility] [address] [place] [address] Dr. Ayden Cam LYMPH # 1.8 103/ul Normal 1.2-3.8 [facility] Comment on above: Performed By: #### C BC #### [facility] [address] [place] [address] Dr. Ayden Cam Lymphocytes/100 WBC (Bld) 31.3 % Normal 20.5-60.0 [facility] Comment on above: Performed By: #### C BC #### [facility] [address] [place] [address] Dr. Ayden Cam MANUAL DIFF REQ NO Normal [facility] Comment on above: Performed By: #### C BC #### [facility] [address] [place] [address] Dr. Ayden Cam MCH (RBC) [Entitic mass] 30.0 pg Normal 26.7-34.0 [facility] Comment on above: Performed By: #### C BC #### [facility] [address] [address] [address] Ayden Cam MCHC (RBC) [Mass/Vol] 33.6 g/dL Normal 29.9-35.2 [facility] Comment on above: Performed By: #### C BC #### [facility] [address] [address] [address] Ayden Cam MCV (RBC) [Entitic vol] 89.1 fL Normal 81.0-99.0 [facility] Comment on above: Performed By: #### C BC #### [facility] [address] [place] [address] Dr. Ayden Cam MONO # 0.6 103/ul Normal 0.3-0.8 [facility] Comment on above: Performed By: #### C BC #### [facility] [address] [place] [address] Dr. Ayden Cam Monocytes/100 WBC (Bld) 10.1 % Normal 1.7-12.0 [facility] Comment on above: Performed By: #### C BC #### [facility] [address] [place] [address] Dr. Ayden Cam NEUT # 3.1 103/ul Normal 1.4-6.5 [facility] Comment on above: Performed By: #### C BC #### [facility] [address] [place] [address] Dr. Ayden Cam Neutrophils/100 WBC (Bld) 53.0 % Normal 43.0-75.0 [facility] Comment on above: Performed By: #### C BC #### [facility] [address] [place] [address] Dr. Ayden Cam Platelet mean volume (Bld) [Entitic vol] 9.4 fL Critically low 9.5-13.5 [facility] Comment on above: Performed By: #### C BC #### [facility] [address] [place] [address] Dr. Ayden Cam PLT 153 103/ul Normal 150-450 [facility] Comment on above: Performed By: #### C BC #### [facility] [address] [address] [address] Ayden Cam RBC 4.14 106/ul Critically low 4.20-5.40 [facility] Comment on above: Performed By: #### C BC #### [facility] [address] [place] [address] Dr. Ayden Cam WBC 5.8 103/ul Normal 4.0-11.0 [facility] Comment on above: Performed By: #### C BC #### [facility] [address] [place] [address] Dr. Ayden Cam LIPASEon 10-06-2022 Lipase [Catalytic activity/Vol] 166.0 U/L Normal 73.0-393.0 [facility] Comment on above: Performed By: #### L IPA #### [facility] [address] [place] [address] Dr. Ayden Cam LIVER PROFILEon 10-06-2022 Albumin [Mass/Vol] 3.2 g/dL Critically low 3.4-5.0 [facility] Comment on above: Performed By: #### L IPA #### [facility] [address] [place] [address] Dr. Ayden Cam Albumin/Globulin [Mass ratio] 1.3 {ratio} Normal [facility] Comment on above: Performed By: #### L IPA #### [facility] [address] [place] [address] Dr. Ayden Cam ALP [Catalytic activity/Vol] 88 U/L Normal 46-116 [facility] Comment on above: Performed By: #### L IPA #### [facility] [address] [place] [address] Dr. Ayden Cam ALT [Catalytic activity/Vol] 66 U/L Critically high 14-59 [facility] Comment on above: Performed By: #### L IPA #### [facility] [address] [place] [address] Dr. Ayden Cam AST [Catalytic activity/Vol] 39 U/L Critically high 15-37 [facility] Comment on above: Performed By: #### L IPA #### [facility] [address] [address] [address] Ayden Cam BILI, CONJUGATED 0.1 mg/dL Normal 0.0-0.2 [facility] Comment on above: Performed By: #### L IPA #### [facility] [address] [address] [address] Ayden Cam Bilirubin [Mass/Vol] 0.4 mg/dL Normal 0.2-1.0 [facility] Comment on above: Performed By: #### L IPA #### [facility] [address] [address] [address] Ayden Cam Globulin (S) [Mass/Vol] 2.4 g/dL Normal [facility] Comment on above: Performed By: #### L IPA #### [facility] [address] [place] [address] Dr. Ayden Cam Protein [Mass/Vol] 5.6 g/dL Critically low 6.4-8.2 [facility] Comment on above: Performed By: #### L IPA #### [facility] [address] [address] [address] Ayden Cam PROF CHEM 8 (BAS METB)on Anion gap [Moles/Vol] 6.8 mmol/L Normal [facility] Comment on above: Performed By: #### L IPA #### [facility] [address] [address] [address] Ayden Cam Calcium [Mass/Vol] 8.6 mg/dL Normal 8.5-10.1 [facility] Comment on above: Performed By: #### L IPA #### [facility] [address] [address] [address] Ayden Cam Chloride [Moles/Vol] 102 mmol/L Normal 98-107 [facility] Comment on above: Performed By: #### L IPA #### [facility] [address] [address] [address] Ayden Cam CO2 [Moles/Vol] 32.6 mmol/L Critically high 21.0-32.0 [facility] Comment on above: Performed By: #### L IPA #### [facility] [address] [address] [address] Ayden Cam Creatinine [Mass/Vol] 0.61 mg/dL Normal 0.55-1.02 [facility] Comment on above: Performed By: #### L IPA #### [facility] [address] [address] [address] Ayden Cam EGFR-AF MONGOLIAN >60 Normal >=60 [facility] Comment on above: Performed By: #### L IPA #### [facility] [address] [address] [address] Ayden Cam EGFR-NON AF MONGOLIAN >60 Normal >=60 [facility] Comment on above: Performed By: #### L IPA #### [facility] [address] [address] [address] Ayden Cam Glucose [Mass/Vol] 91 mg/dL Normal 74-106 [facility] Comment on above: Performed By: #### L IPA #### [facility] [address] [address] [address] Ayden Cam Potassium [Moles/Vol] 3.4 mmol/L Critically low 3.5-5.1 [facility] Comment on above: Performed By: #### L IPA #### [facility] [address] [place] [address] Dr. Ayden Cam Sodium [Moles/Vol] 138 mmol/L Normal 136-145 [facility] Comment on above: Performed By: #### L IPA #### [facility] [address] [address] [address] Ayden Cam Urea nitrogen [Mass/Vol] 13.0 mg/dL Normal 7.0-18.0 [facility] Comment on above: Performed By: #### L IPA #### [facility] [address] [address] [address] Ayden Cam Urea nitrogen/Creatinine [Mass ratio] 21.3 mg/mg Normal [facility] Comment on above: Performed By: #### L IPA #### [facility] [address] [place] [address] Dr. Ayden Cam AMMONIAon 10-05-2022 Ammonia (P) [Moles/Vol] 10 umol/L Critically low 11-32 [facility] Comment on above: Performed By: #### A MM #### [facility] [address] [place] [address] Dr. Ayden Cam AMYLASEon 10-05-2022 Amylase [Catalytic activity/Vol] 109 U/L Normal 25-115 [facility] Comment on above: Performed By: #### A MY #### [facility] [address] [place] [address] Dr. Ayden Cam CBC AUTO DIFFon 10-05-2022 BASO # 0.0 103/ul Normal 0.0-0.1 [facility] Comment on above: Performed By: #### L IPA #### [facility] [address] [place] [address] Dr. Ayden Cam Basophils/100 WBC (Bld) 0.3 % Normal 0.2-2.0 [facility] Comment on above: Performed By: #### L IPA #### [facility] [address] [place] [address] Dr. Ayden Cam EO # 0.3 103/ul Normal 0.0-0.7 [facility] Comment on above: Performed By: #### L IPA #### [facility] [address] [place] [address] Dr. Ayden Cam Eosinophils/100 WBC (Bld) 4.3 % Normal 0.9-7.0 [facility] Comment on above: Performed By: #### L IPA #### [facility] [address] [place] [address] Dr. Ayden Cam Erythrocyte distribution width (RBC) [Ratio] 12.2 % Normal 11.0-15.0 [facility] Comment on above: Performed By: #### L IPA #### [facility] [address] [place] [address] Dr. Ayden Cam Hematocrit (Bld) [Volume fraction] 38.9 % Normal 36.0-48.0 [facility] Comment on above: Performed By: #### L IPA #### [facility] [address] [address] [address] Ayden Cam Hemoglobin (Bld) [Mass/Vol] 12.8 g/dL Normal 12.0-16.0 [facility] Comment on above: Performed By: #### L IPA #### [facility] Laboratory [address] [address] [address] Ayden Cam IG # 0.01 10e3/ul Normal 0.00-0.03 [facility] Comment on above: Performed By: #### L IPA #### [facility] Laboratory [address] [place] [address] Dr. Ayden Cam IG % 0.2 % Normal 0.0-0.5 [facility] Comment on above: Performed By: #### L IPA #### [facility] Laboratory [address] [place] [address] Dr. Ayden Cam LYMPH # 1.9 103/ul Normal 1.2-3.8 [facility] Comment on above: Performed By: #### L IPA #### [facility] Laboratory [address] [place] [address] Dr. Ayden Cam Lymphocytes/100 WBC (Bld) 31.4 % Normal 20.5-60.0 [facility] Comment on above: Performed By: #### L IPA #### [facility] Laboratory [address] [place] [address] Dr. Ayden Cam MANUAL DIFF REQ NO Normal [facility] Comment on above: Performed By: #### L IPA #### [facility] Laboratory [address] [place] [address] Dr. Ayden Cam MCH (RBC) [Entitic mass] 29.6 pg Normal 26.7-34.0 [facility] Comment on above: Performed By: #### L IPA #### [facility] Laboratory [address] [place] [address] Dr. Ayden Cam MCHC (RBC) [Mass/Vol] 32.9 g/dL Normal 29.9-35.2 [facility] Comment on above: Performed By: #### L IPA #### [facility] Laboratory [address] [address] [address] Ayden Cam MCV (RBC) [Entitic vol] 89.8 fL Normal 81.0-99.0 [facility] Comment on above: Performed By: #### L IPA #### [facility] [address] [address] [address] Ayden Cam MONO # 0.6 103/ul Normal 0.3-0.8 [facility] Comment on above: Performed By: #### L IPA #### [facility] [address] [address] [address] Ayden Cam Monocytes/100 WBC (Bld) 10.1 % Normal 1.7-12.0 [facility] Comment on above: Performed By: #### L IPA #### [facility] Laboratory [address] [place] [address] Dr. Ayden Cam NEUT # 3.2 103/ul Normal 1.4-6.5 [facility] Comment on above: Performed By: #### L IPA #### [facility] [address] [place] [address] Dr. Ayden Cam Neutrophils/100 WBC (Bld) 53.7 % Normal 43.0-75.0 [facility] Comment on above: Performed By: #### L IPA #### [facility] [address] [place] [address] Dr. Ayden Cam Platelet mean volume (Bld) [Entitic vol] 9.7 fL Normal 9.5-13.5 [facility] Comment on above: Performed By: #### L IPA #### [facility] Laboratory [address] [place] [address] Dr. Ayden Cam PLT 168 103/ul Normal 150-450 [facility] Comment on above: Performed By: #### L IPA #### [facility] [address] [place] [address] Dr. Ayden Cam RBC 4.33 106/ul Normal 4.20-5.40 [facility] Comment on above: Performed By: #### L IPA #### [facility] [address] [place] [address] Dr. Ayden Cam WBC 6.0 103/ul Normal 4.0-11.0 [facility] Comment on above: Performed By: #### L IPA #### [facility] [address] [place] [address] Dr. Ayden Cam LIPASEon 10-05-2022 Lipase [Catalytic activity/Vol] 151.0 U/L Normal 73.0-393.0 [facility] Comment on above: Performed By: #### L IPA #### [facility] [address] [place] [address] Dr. Ayden Cam LIVER PROFILEon 10-05-2022 Albumin [Mass/Vol] 3.2 g/dL Critically low 3.4-5.0 [facility] Comment on above: Performed By: #### L ACT #### [facility] [address] [place] [address] Dr. Ayden Cam Albumin/Globulin [Mass ratio] 1.1 {ratio} Normal [facility] Comment on above: Performed By: #### L ACT #### [facility] [address] [place] [address] Dr. Ayden Cam ALP [Catalytic activity/Vol] 82 U/L Normal 46-116 [facility] Comment on above: Performed By: #### L ACT #### [facility] [address] [place] [address] Dr. Ayden Cam ALT [Catalytic activity/Vol] 70 U/L Critically high 14-59 [facility] Comment on above: Performed By: #### L ACT #### [facility] [address] [place] [address] Dr. Ayden Cam AST [Catalytic activity/Vol] 36 U/L Normal 15-37 [facility] Comment on above: Performed By: #### L ACT #### [facility] [address] [place] [address] Dr. Ayden Cam BILI, CONJUGATED 0.1 mg/dL Normal 0.0-0.2 [facility] Comment on above: Performed By: #### L ACT #### [facility] [address] [place] [address] Dr. Ayden Cam Bilirubin [Mass/Vol] 0.3 mg/dL Normal 0.2-1.0 [facility] Comment on above: Performed By: #### L ACT #### [facility] [address] [address] [address] Ayden Cam Globulin (S) [Mass/Vol] 3.0 g/dL Normal [facility] Comment on above: Performed By: #### L ACT #### [facility] [address] [address] [address] Ayden Cam Protein [Mass/Vol] 6.2 g/dL Critically low 6.4-8.2 [facility] Comment on above: Performed By: #### L ACT #### [facility] [address] [place] [address] Dr. Ayden Cam PROF CHEM 8 (BAS METB)on Anion gap [Moles/Vol] 9.5 mmol/L Normal [facility] Comment on above: Performed By: #### B MP #### [facility] [address] [place] [address] Dr. Ayden Cam Calcium [Mass/Vol] 8.9 mg/dL Normal 8.5-10.1 [facility] Comment on above: Performed By: #### B MP #### [facility] [address] [place] [address] Dr. Ayden Cam Chloride [Moles/Vol] 105 mmol/L Normal 98-107 [facility] Comment on above: Performed By: #### B MP #### [facility] [address] [place] [address] Dr. Ayden Cam CO2 [Moles/Vol] 29.6 mmol/L Normal 21.0-32.0 [facility] Comment on above: Performed By: #### B MP #### [facility] [address] [place] [address] Dr. Ayden Cam Creatinine [Mass/Vol] 0.56 mg/dL Normal 0.55-1.02 [facility] Comment on above: Performed By: #### B MP #### [facility] [address] [address] [address] Ayden Cam EGFR-AF MONGOLIAN >60 Normal >=60 [facility] Comment on above: Performed By: #### B MP #### [facility] [address] [address] [address] Ayden Cam EGFR-NON AF MONGOLIAN >60 Normal >=60 [facility] Comment on above: Performed By: #### B MP #### [facility] [address] [address] [address] Ayden Cam Glucose [Mass/Vol] 88 mg/dL Normal 74-106 [facility] Comment on above: Performed By: #### B MP #### [facility] [address] [place] [address] Dr. Ayden Cam Potassium [Moles/Vol] 4.1 mmol/L Normal 3.5-5.1 [facility] Comment on above: Performed By: #### B MP #### [facility] [address] [place] [address] Dr. Ayden Cam Sodium [Moles/Vol] 140 mmol/L Normal 136-145 [facility] Comment on above: Performed By: #### B MP #### [facility] [address] [place] [address] Dr. Ayden Cam Urea nitrogen [Mass/Vol] 15.0 mg/dL Normal 7.0-18.0 [facility] Comment on above: Performed By: #### B MP #### [facility] [address] [place] [address] Dr. Ayden Cam Urea nitrogen/Creatinine [Mass ratio] 26.8 mg/mg Normal [facility] Comment on above: Performed By: #### B MP #### [facility] Laboratory [address] [place], [place] [id number] Dr. Ayden Cam US Jhony 10-05-2022 US [...] TORIBIO Date: 2022-10-05 09:52 Normal [facility] XR KUB 1 VIEWon 10-05-2022 XR [...] TORIBIO Date: 2022-10-05 09:55 Normal [facility] AMYLASEon 10-04-2022 Amylase [Catalytic activity/Vol] 124 U/L Critically high 25-115 [facility] Comment on above: Performed By: #### L IPA, COLE, CMP #### [facility] [address] [address] [address] Ayden Cam CBC AUTO DIFFon 10-04-2022 BASO # 0.0 103/ul Normal 0.0-0.1 [facility] Comment on above: Performed By: #### L IPA #### [facility] [address] [address] [address] Ayden Cam Basophils/100 WBC (Bld) 0.3 % Normal 0.2-2.0 [facility] Comment on above: Performed By: #### L IPA #### [facility] [address] [place] [address] Dr. Ayden Cam EO # 0.2 103/ul Normal 0.0-0.7 [facility] Comment on above: Performed By: #### L IPA #### [facility] [address] [place] [address] Dr. Ayden Cam Eosinophils/100 WBC (Bld) 2.9 % Normal 0.9-7.0 [facility] Comment on above: Performed By: #### L IPA #### [facility] [address] [place] [address] Dr. Ayden Cam Erythrocyte distribution width (RBC) [Ratio] 12.3 % Normal 11.0-15.0 [facility] Comment on above: Performed By: #### L IPA #### [facility] [address] [place] [address] Dr. Ayden Cam Hematocrit (Bld) [Volume fraction] 42.0 % Normal 36.0-48.0 [facility] Comment on above: Performed By: #### L IPA #### [facility] [address] [place] [address] Dr. Ayden Cam Hemoglobin (Bld) [Mass/Vol] 14.3 g/dL Normal 12.0-16.0 [facility] Comment on above: Performed By: #### L IPA #### [facility] [address] [place] [address] Dr. Ayden Cam IG # 0.02 10e3/ul Normal 0.00-0.03 [facility] Comment on above: Performed By: #### L IPA #### [facility] [address] [place] [address] Dr. Ayden Cam IG % 0.3 % Normal 0.0-0.5 [facility] Comment on above: Performed By: #### L IPA #### [facility] [address] [place] [address] Dr. Ayden Cam LYMPH # 1.7 103/ul Normal 1.2-3.8 [facility] Comment on above: Performed By: #### L IPA #### [facility] [address] [place] [address] Dr. Ayden Cam Lymphocytes/100 WBC (Bld) 22.5 % Normal 20.5-60.0 [facility] Comment on above: Performed By: #### L IPA #### [facility] [address] [place] [address] Dr. Ayden Cam MANUAL DIFF REQ NO Normal [facility] Comment on above: Performed By: #### L IPA #### [facility] [address] [place] [address] Dr. Ayden Cam MCH (RBC) [Entitic mass] 30.1 pg Normal 26.7-34.0 [facility] Comment on above: Performed By: #### L IPA #### [facility] [address] [place] [address] Dr. Ayden Cam MCHC (RBC) [Mass/Vol] 34.0 g/dL Normal 29.9-35.2 [facility] Comment on above: Performed By: #### L IPA #### [facility] [address] [place] [address] Dr. Ayden Cma MCV (RBC) [Entitic vol] 88.4 fL Normal 81.0-99.0 [facility] Comment on above: Performed By: #### L IPA #### [facility] [address] [place] [address] Dr. Ayden Cam MONO # 0.5 103/ul Normal 0.3-0.8 [facility] Comment on above: Performed By: #### L IPA #### [facility] [address] [place] [address] Dr. Ayden Cam Monocytes/100 WBC (Bld) 6.0 % Normal 1.7-12.0 [facility] Comment on above: Performed By: #### L IPA #### [facility] [address] [place] [address] Dr. Ayden Cam NEUT # 5.2 103/ul Normal 1.4-6.5 [facility] Comment on above: Performed By: #### L IPA #### [facility] [address] [place] [address] Dr. Ayden Cam Neutrophils/100 WBC (Bld) 68.0 % Normal 43.0-75.0 [facility] Comment on above: Performed By: #### L IPA #### [facility] [address] [place] [address] Dr. yAden Cam Platelet mean volume (Bld) [Entitic vol] 9.6 fL Normal 9.5-13.5 [facility] Comment on above: Performed By: #### L IPA #### [facility] [address] [place] [address] Dr. Ayden Cam PLT 183 103/ul Normal 150-450 [facility] Comment on above: Performed By: #### L IPA #### [facility] [address] [place] [address] Dr. Ayden Cam RBC 4.75 106/ul Normal 4.20-5.40 [facility] Comment on above: Performed By: #### L IPA #### [facility] [address] [place] [address] Dr. Ayden Cam WBC 7.6 103/ul Normal 4.0-11.0 [facility] Comment on above: Performed By: #### L IPA #### [facility] [address] [place] [address] Dr. Ayden Cam Covid-19 PCR ([facility])on SARS-CoV-2 (COVID-19) RNA LOWELL+probe Ql (Unsp spec) Not detected Normal NOT DETECTED [facility] Comment on above: Result Comment: When [...] for this test is supported by the Stringed Instrument Repairer of Health and Human Service's declaration that [...] Performed By: #### L IPA #### [facility] [address] [place] [address] Dr. Ayden Cam ER URINE PROFILEon 3 Bilirubin Ql (U) Negative Normal NEGATIVE [facility] Comment on above: Performed By: #### L ACT #### [facility] [address] [place] [address] Dr. Ayden Cam Clarity (U) CLEAR Normal CLEAR [facility] Comment on above: Performed By: #### L ACT #### [facility] [address] [place] [address] Dr. Ayden Cam Color (U) LT. YELLOW Normal YELLOW [facility] Comment on above: Performed By: #### L ACT #### [facility] [address] [place] [address] Dr. Ayden Cam ERUAHD A micrscopic examina tion will be performed if indicated. Normal [facility] Comment on above: Performed By: #### L ACT #### [facility] [address] [place] [address] Dr. Ayden Cam Glucose Ql (U) Negative Normal NEGATIVE [facility] Comment on above: Performed By: #### L ACT #### [facility] [address] [place] [address] Dr. Ayden Cam Hemoglobin Ql (U) Negative Normal NEGATIVE [facility] Comment on above: Performed By: #### L ACT #### [facility] [address] [place] [address] Dr. Ayden Cam Ketones Ql (U) Negative Normal NEGATIVE [facility] Comment on above: Performed By: #### L ACT #### [facility] [address] [place] [address] Dr. Ayden Cam LEUKOCYTES Negative Normal NEGATIVE [facility] Comment on above: Performed By: #### L ACT #### [facility] [address] [place] [address] Dr. Ayden Cam Nitrite Ql (U) Negative Normal NEGATIVE [facility] Comment on above: Performed By: #### L ACT #### [facility] [address] [place] [address] Dr. Ayden Cam pH (U) 8.5 [pH] Normal 5-9 [facility] Comment on above: Performed By: #### L ACT #### [facility] [address] [place] [address] Dr. Ayden Cam SPEC GRAVITY 1.015 Normal 1.005-<=1. 025 [facility] Comment on above: Performed By: #### L ACT #### [facility] [address] [place] [address] Dr. Ayden Cam UA PROTEIN Negative Normal NEGATIVE/ TRACE [facility] Comment on above: Performed By: #### L ACT #### [facility] [address] [place] [address] Dr. Ayden Cam UR MICRO IND NOT INDICATED Normal [facility] Comment on above: Performed By: #### L ACT #### [facility] [address] [place] [address] Dr. Ayden Cam Urobilinogen Qn (U) 0.2 {Peggy'U}/dL Normal 0.2 - 1. 0 [facility] Comment on above: Performed By: #### L ACT #### [facility] [address] [place] [address] Dr. Ayden Cam LACTATE/LACTIC ACIDon 2022 Lactate [Moles/Vol] 0.8 mmol/L Normal 0.4-1.9 [facility] Comment on above: Performed By: #### L ACT #### [facility] [address] [place] [address] Dr. Ayden Cam LIPASEon 10-04-2022 Lipase [Catalytic activity/Vol] 170.0 U/L Normal 73.0-393.0 [facility] Comment on above: Performed By: #### L ACT #### [facility] [address] [place] [address] Dr. Ayden Cam PROF 14(COMP METB)on 023 Albumin [Mass/Vol] 3.8 g/dL Normal 3.4-5.0 [facility] Comment on above: Performed By: #### L ACT #### [facility] [address] [place] [address] Dr. Ayden Cam Albumin/Globulin [Mass ratio] 1.1 {ratio} Normal [facility] Comment on above: Performed By: #### L ACT #### [facility] [address] [address] [address] Ayden Cam ALP [Catalytic activity/Vol] 101 U/L Normal 46-116 [facility] Comment on above: Performed By: #### L ACT #### [facility] [address] [place] [address] Dr. Ayden Cam ALT [Catalytic activity/Vol] 94 U/L Critically high 14-59 [facility] Comment on above: Performed By: #### L ACT #### [facility] [address] [place] [address] Dr. Ayden Cam Anion gap [Moles/Vol] 11.1 mmol/L Normal [facility] Comment on above: Performed By: #### L ACT #### [facility] [address] [place] [address] Dr. Ayden Cam AST [Catalytic activity/Vol] 59 U/L Critically high 15-37 [facility] Comment on above: Performed By: #### L ACT #### [facility] [address] [place] [address] Dr. Ayden Cam Bilirubin [Mass/Vol] 0.3 mg/dL Normal 0.2-1.0 [facility] Comment on above: Performed By: #### L ACT #### [facility] [address] [place] [address] Dr. Ayden Cam Calcium [Mass/Vol] 9.5 mg/dL Normal 8.5-10.1 [facility] Comment on above: Performed By: #### L ACT #### [facility] [address] [place] [address] Dr. Ayden Cam Chloride [Moles/Vol] 99 mmol/L Normal 98-107 [facility] Comment on above: Performed By: #### L ACT #### [facility] [address] [address] [address] Ayden Cam CO2 [Moles/Vol] 29.7 mmol/L Normal 21.0-32.0 [facility] Comment on above: Performed By: #### L ACT #### [facility] [address] [address] [address] Ayden Cam Creatinine [Mass/Vol] 0.61 mg/dL Normal 0.55-1.02 [facility] Comment on above: Performed By: #### L ACT #### [facility] [address] [address] [address] Ayden Cam EGFR-AF MONGOLIAN >60 Normal >=60 [facility] Comment on above: Performed By: #### L ACT #### [facility] [address] [address] [address] Ayden Cam EGFR-NON AF MONGOLIAN >60 Normal >=60 [facility] Comment on above: Performed By: #### L ACT #### [facility] [address] [address] [address] Ayden Cam Globulin (S) [Mass/Vol] 3.4 g/dL Normal [facility] Comment on above: Performed By: #### L ACT #### [facility] [address] [place] [address] Dr. Ayden Cam Glucose [Mass/Vol] 111 mg/dL Critically high 74-106 [facility] Comment on above: Performed By: #### L ACT #### [facility] [address] [address] [address] Ayden Cam Potassium [Moles/Vol] 3.8 mmol/L Normal 3.5-5.1 [facility] Comment on above: Performed By: #### L ACT #### [facility] [address] [address] [address] Ayden Cam Protein [Mass/Vol] 7.2 g/dL Normal 6.4-8.2 [facility] Comment on above: Performed By: #### L ACT #### [facility] [address] [address] [address] Ayden Cam Sodium [Moles/Vol] 136 mmol/L Normal 136-145 [facility] Comment on above: Performed By: #### L ACT #### [facility] [address] [address] [address] Ayden Cam Urea nitrogen [Mass/Vol] 23.0 mg/dL Critically high 7.0-18.0 [facility] Comment on above: Performed By: #### L ACT #### [facility] [address] [address] [address] Ayden Cam Urea nitrogen/Creatinine [Mass ratio] 37.7 mg/mg Normal [facility] Comment on above: Performed By: #### L ACT #### [facility] [address] [place] [address] Dr. Ayden Cam TROPONIN, HIGH SENSITIVITYon 10-04-2022 HSTROP 8.9 pg/mL Normal 4.0-51.3 [facility] Comment on above: Result Comment: CUT- OFF POINTS HAVE BEEN ESTABLISHED BASED ON THE FOURTH UNIVERSAL DEFINITIONS OF MYOCARDIAL INFARCTION. THE UPPER REFERENCE LIMIT (URL) OF TROPONIN, DEFINED THE 99TH PERCENTILE OF cTnI DISTRIBUTION IN A REFERENCE POPULATION, HAS BEEN CONFIRMED THE DECISION THRESHOLD FOR PA DIAGNOSIS. Performed By: #### L ACT #### [facility] [address] [place] [address] Dr. Ayden Cam LIPID PROFILEon 09-19-2022 CHOL-HDL RATIO NORM SEE BELOW Normal [facility] Comment on above: Result Comment: 3.3 - 4.4 LOW RISK 4.4 - 7.1 AVERAGE RISK 7.1 - 11.0 MODERATE RISK >11.0 HIGH RISK Performed By: #### L IPA #### [facility] [address] [place] [address] Dr. Ayden Cam Cholesterol [Mass/Vol] 116 mg/dL Normal <=200 [facility] Comment on above: Performed By: #### L IPA #### [facility] [address] [address] [address] Ayden Cam Cholesterol in HDL [Mass/Vol] 59 mg/dL Normal 40-60 [facility] Comment on above: Performed By: #### L IPA #### [facility] [address] [address] [address] Ayden Cam Cholesterol in LDL [Mass/Vol] 34.0 mg/dL Normal [facility] Comment on above: Performed By: #### L IPA #### [facility] [facility] [address] [place] [address] Dr. Ayden Cam Cholesterol.total/Chol esterol in HDL [Mass ratio] 2.0 {ratio} Normal [facility] Comment on above: Performed By: #### L IPA #### [facility] [address] [place] [address] Dr. Ayden Cam HDL NORMAL > or = 60 mg/dl - LO W CARDIOVASCULAR RISK <40 mg/dl - HIGH CARDIOVASCULAR RISK Normal [facility] Comment on above: Performed By: #### L IPA #### [facility] [address] [place] [address] Dr. Ayden Cam LDL CALC NORMAL SEE BELOW Normal [facility] Comment on above: Result Comment: <100 mg/dl OPTIMAL 100 - 129 mg/dl NEAR OR ABOVE OPTIMAL 130 - 159 mg/dl BORDERLINE HIGH 160 - 189 mg/dl HIGH >190 mg/dl VERY HIGH Performed By: #### L IPA #### [facility] [address] [place] [address] Dr. Ayden Cam Triglyceride [Mass/Vol] 115 mg/dL Normal <=150 [facility] Comment on above: Performed By: #### L IPA #### [facility] [address] [place] [address] Dr. Ayden Cam VLDL CALC 23.0 mg/dL Normal [facility] Comment on above: Performed By: #### L IPA #### [facility] [address] [place] [address] Dr. Ayden Cam VITAMIN D 25 OHon 09-19-2022 VIT D 25-OH 89.3 ng/mL Normal [facility] Comment on above: Performed By: #### V ITAD #### [facility] [address] [place] [address] Dr. Ayden Cam VIT D RANGES SEE BELOW Normal [facility] Comment on above: Result Comment: <20 ng/mL Vit D deficient 20 - <30 ng/mL Vit D insufficient 30 - 100 ng/mL Vit D sufficient >100 ng/mL Potential Toxicity Performed By: #### V ITAD #### [facility] [address] [address] [address] Ayden Cam Office Visit (Cardiology)on 08-15-2022 Follow-up visit Diagnoses/Problems Assessed Atherosclerosis of coronary artery of little traverse heart without angina pectoris (414.01) (I25.10) History of coronary artery bypass graft (V45.81) (Z95.1) Ischemic cardiomyopathy (414.8) (I25.5) Hyperlipidemia (272.4) (E78.5) Essential hypertension, benign (401.1) (I10) Never a smoker Overweight with body mass index (BMI) of 26 to 26.9 in adult (278.02,V85.22) (E66.3,Z68.26) Paroxysmal SVT (supraventricular tachycardia) (427.0) (I47.1) Orders Atherosclerosis of coronary artery of little traverse heart without angina pectoris, Essential hypertension, benign, Hyperlipidemia Basic Metabolic Panel; Status:Active - Retrospective Authorization; Requested for:[id number]; Lipid Panel; Status:Active - Retrospective Authorization; Requested for:[id number]; Overweight with body mass index (BMI) of 26 to 26.9 in adult Healthy Weight Tips; Status:Complete - Retrospective Authorization; Done: [id number] Some eating tips that can help you lose weight.; Status:Complete - Retrospective Authorization; Done: [id number] SocHx: Never a smoker Tobacco Use Screening; Status:Complete; Done: [id number] Patient Instructions Please bring all medicines, vitamins, [...] She has a history of prior inferior PA, prior PCI with subsequent three-vessel CABG and [...] CHEST PAIN.CALL 911 IF PAIN PERSISTS. Nyamyc [id number] UNIT/GM External Powderapply topically to affected area twice a day if needed PreserVision AREDS Oral CapsuleTAKE 2 CAPSULE Twice daily Tamsulosin HCl - 0.4 MG Oral CapsuleTAKE 1 CAPSULE Daily Allergies Medication Baclofen TABS Adverse Reaction; Shortness of breath;; Recorded By: Jennifer Jean; 08/17/2021 9:42:39 AM Bactrim TABS Allergy; Hives;; Recorded By: Jennifer eJan; 08/17/2021 9:42:39 AM Sulfa Drugs Allergy; Hives;; [...] no s (more content not included)... Normal [employer] Tobacco Screening.on Adult depression screening assessment No [facility] [facility] DO Work Phone: Fall risk assessment a) No falls within the last year [facility] Work Phone: Tobacco use status CPHS b) No [facility] [facility] 250 DO Work Phone: MRI [...] by Wilder Arango on 08/01/2022 1102 Normal [facility] [employer] Tobacco Screening.on 021 Tobacco use status CPHS b) No -[facility] [facility] 250 DO Work Phone: Vital Signs Date Time Vital Sign Value Performing Clinician Facility 05-15-2025 11:45-0400 Body height 160 cm Raji RINALDI Work Phone: [facility] 05-15-2025 11:45-0400 Body mass index (BMI) [Ratio] 30.82 kg/m2 Raji RINALDI Work Phone: [facility] 05-15-2025 11:45-0400 Body weight 78.93 kg Raji RINALDI Work Phone: [facility] 09-05-2024 09:53-0500 Body height 160 cm Celso Garibay DO Work Phone: [facility] 09-05-2024 09:53-0500 Body mass index (BMI) [Ratio] 30.11 kg/m2 Celso Garibay DO Work Phone: [facility] 09-05-2024 09:53-0500 Body weight 77.11 kg Celso Garibay DO Work Phone: [facility] 09-05-2024 09:53-0500 Diastolic blood pressure 80 mm[Hg] Celso Garibay DO Work Phone: [facility] 09-05-2024 09:53-0500 Heart rate 66 /min Celso Garibay DO Work Phone: [facility] 09-05-2024 09:53-0500 Systolic blood pressure 118 mm[Hg] Celso Garibay DO Work Phone: [facility] 08-19-2024 01:03-0500 Diastolic blood pressure 69 mm[Hg] Ashley Grigsby MD Work Phone: [facility] 08-19-2024 01:03-0500 Heart rate 60 /min Ashley Grigsby MD Work Phone: [facility] 08-19-2024 01:03-0500 Respiratory rate 20 /min Ashley Grigsby MD Work Phone: [facility] 08-19-2024 01:03-0500 SaO2% (BldA) [Mass fraction] 96 % Ashley Grigsby MD Work Phone: [facility] 08-19-2024 01:03-0500 Systolic blood pressure 130 mm[Hg] Ashley Grigsby MD Work Phone: [facility] 08-18-2024 20:55-0500 Body height 160.02 cm Ashley Grigsby MD Work Phone: [facility] 08-18-2024 20:55-0500 Body temperature 97.4 [degF] Ashley Grigsby MD Work Phone: [facility] 08-18-2024 20:55-0500 Body weight 78.5 kg Ashley Grigsby MD Work Phone: [facility] 08-13-2024 12:21-0500 Body height 160 cm Celso Garibay DO Work Phone: [facility] 08-13-2024 12:21-0500 Body mass index (BMI) [Ratio] 30.47 kg/m2 Celso Garibay DO Work Phone: [facility] 08-13-2024 12:21-0500 Body weight 78.02 kg Celso Garibay DO Work Phone: [facility] 08-13-2024 12:21-0500 Diastolic blood pressure 94 mm[Hg] Celso Garibay DO Work Phone: [facility] 08-13-2024 12:21-0500 Heart rate 76 /min Celso Garibay DO Work Phone: [facility] 08-13-2024 12:21-0500 Systolic blood pressure 138 mm[Hg] Celso Garibay DO Work Phone: [facility] 08-05-2024 11:08-0500 Blood Pressure Location [place] [facility] 08-05-2024 11:08-0500 Body temperature 98.6 [degF] [place] [facility] 08-05-2024 11:08-0500 Diastolic blood pressure 80 mm[Hg] [place] [facility] 08-05-2024 11:08-0500 Heart rate 68 /min [place] [facility] 08-05-2024 11:08-0500 Respiratory rate 16 /min [place] [facility] 08-05-2024 11:08-0500 Systolic blood pressure 131 mm[Hg] [place] [facility] 04-10-2024 15:08-0400 Blood Pressure Location [place] [facility] 04-10-2024 15:08-0400 Diastolic blood pressure 80 mm[Hg] [place] [facility] 04-10-2024 15:08-0400 Heart rate 75 /min JENNIFER MARTINO [facility] 04-10-2024 15:08-0400 Respiratory rate 16 /min JENNIFER MARTINO [facility] 04-10-2024 15:08-0400 Systolic blood pressure 131 mm[Hg] JENNIFER MARTINO [facility] 02-29-2024 11:15-0400 Body height 160 cm [facility] 02-29-2024 11:15-0400 Body mass index (BMI) [Ratio] 29.58 kg/m2 [facility] 02-29-2024 11:15-0400 Body weight 75.[address] 01-17-2024 16:03-0400 Body height 161.3 cm Stephanie Berger MD PhD Work Phone: [facility] 01-17-2024 16:03-0400 Body mass index (BMI) [Ratio] 30.16 kg/m2 Stephanie Berger MD PhD Work Phone: [facility] 01-17-2024 16:03-0400 Body weight 78.47 kg Stephanie Berger MD PhD Work Phone: [facility] 08-14-2023 15:29-0500 Body height 161.3 cm Celso Garibay DO Work Phone: [facility] 08-14-2023 15:29-0500 Body mass index (BMI) [Ratio] 28.07 kg/m2 Celso Garibay DO Work Phone: [facility] 08-14-2023 15:29-0500 Body weight 73.03 kg Celso Garibay DO Work Phone: [facility] 08-14-2023 15:29-0500 Diastolic blood pressure 80 mm[Hg] Celso Garibay DO Work Phone: [facility] 08-14-2023 15:29-0500 Heart rate 56 /min Celso Garibay DO Work Phone: [facility] 08-14-2023 15:29-0500 Systolic blood pressure 138 mm[Hg] Celso Garibay DO Work Phone: [facility] 06-18-2023 15:15-0400 Diastolic blood pressure 78 mm[Hg] Gaby Tello DO Work Phone: [employer] 06-18-2023 15:15-0400 Heart rate 70 /min Gaby Tello DO Work Phone: [employer] 06-18-2023 15:15-0400 Respiratory rate 18 /min Gaby Tello DO Work Phone: [employer] 06-18-2023 15:15-0400 SaO2% (BldA) [Mass fraction] 96 % Gaby Tello DO Work Phone: [employer] 06-18-2023 15:15-0400 Systolic blood pressure 173 mm[Hg] Gaby Tello DO Work Phone: [employer] 06-18-2023 14:36-0400 Body temperature 97 [degF] Gaby Novoag DO Work Phone: [employer] 06-18-2023 13:30-0400 Body height 160 cm Gaby Novoag DO Work Phone: [employer] 06-18-2023 13:30-0400 Body mass index (BMI) [Ratio] 27.03 kg/m2 Gaby Novoag DO Work Phone: [employer] 06-18-2023 13:30-0400 Body weight 69.22 kg Gaby Novoag DO Work Phone: [employer] 11-02-2022 15:02-0500 Diastolic blood pressure 84 mm[Hg] MD Ashley Grigsby Work Phone: [facility] 11-02-2022 15:02-0500 Heart rate 78 /min MD Ashley Grigsby Work Phone: [facility] 11-02-2022 15:02-0500 Respiratory rate 18 /min MD Ashley Grigsby Work Phone: [facility] 11-02-2022 15:02-0500 SaO2% (BldA) [Mass fraction] 100 % MD Ashley Grigsby Work Phone: [facility] 11-02-2022 15:02-0500 Systolic blood pressure 161 mm[Hg] MD Ashley Grigsby Work Phone: [facility] 11-02-2022 13:20-0500 Body height 160.02 cm MD Ashley Grigsby Work Phone: [facility] 11-02-2022 13:20-0500 Body temperature 98.2 [degF] MD Ashley Grigsby Work Phone: [facility] 11-02-2022 13:20-0500 Body weight 60.78 kg MD Ashley Grigsby Work Phone: [facility] 11-01-2022 13:26-0500 Diastolic blood pressure 61 mm[Hg] MD Ashley Grigsby Work Phone: [facility] 11-01-2022 13:26-0500 Heart rate 59 /min MD Ashley Grigsby Work Phone: [facility] 11-01-2022 13:26-0500 Respiratory rate 20 /min MD Ashley Grigsby Work Phone: [facility] 11-01-2022 13:26-0500 SaO2% (BldA) [Mass fraction] 99 % MD Ashley Grigsby Work Phone: [facility] 11-01-2022 13:26-0500 Systolic blood pressure 124 mm[Hg] MD Ashley Grigsby Work Phone: [facility] 11-01-2022 10:53-0500 Body height 160.02 cm MD Ashley Grigsby Work Phone: [facility] 11-01-2022 10:53-0500 Body temperature 97.7 [degF] MD Ashley Grigsby Work Phone: [facility] 11-01-2022 10:53-0500 Body weight 61.68 kg MD Ashley Grigsby Work Phone: [facility] 10-24-2022 15:45-0500 Body height 159.38 cm Imad Asaad Other [facility] Other 10-24-2022 15:45-0500 Body mass index (BMI) [Ratio] 24.28 kg/m2 Imad Asaad Other [facility] Other 10-24-2022 15:45-0500 Body weight 61.69 kg Imad Asaad Other [facility] Other 10-24-2022 15:45-0500 Diastolic blood pressure 94 mm[Hg] Imad Asaad Other [facility] Other 10-24-2022 15:45-0500 Systolic blood pressure 133 mm[Hg] Imad Asaad Other [facility] Other 09-19-2022 00:00-0500 34 1 Ashley M Hoy Work Phone: [facility] 250 DO Work Phone: Comment on above: [facility] 08-15-2022 15:23-0500 Body height 160.02 cm Ashley M Hoy Work Phone: [facility] 250 DO Work Phone: 08-15-2022 15:23-0500 Body mass index (BMI) [Ratio] 26.22 kg/m2 Ashley Tyree Hoy Work Phone: [facility] 250 DO Work Phone: 08-15-2022 15:23-0500 Body surface area Derived from formula 1.7 m2 Ashley Tyree Hoy Work Phone: [facility] 250 DO Work Phone: 08-15-2022 15:23-0500 Body weight 67.13 kg Ashley Tyree Hoy Work Phone: [facility] 250 DO Work Phone: 08-15-2022 15:23-0500 Diastolic blood pressure 82 mm[Hg] Ashley Tyree Hoy Work Phone: [facility] 250 DO Work Phone: 08-15-2022 15:23-0500 Heart rate 80 /min Ashley Tyree Hoy Work Phone: [facility] DO Work Phone: 08-15-2022 15:23-0500 Systolic blood pressure 132 mm[Hg] Ashley Tyree Hoy Work Phone: [facility] DO Work Phone: 06-02-2022 08:12-0400 Blood Pressure Location Santiago [facility] 06-02-2022 08:12-0400 Diastolic blood pressure 86 mm[Hg] Santiago CARRILLO [facility] 06-02-2022 08:12-0400 Heart rate 60 /min Santiago CARRILLO [facility] 06-02-2022 08:12-0400 Respiratory rate 16 /min Santiago CARRILLO [facility] 06-02-2022 08:12-0400 Systolic blood pressure 144 mm[Hg] Santiago CARRILLO [facility] 08-17-2021 09:47-0500 Body height 160.02 cm Ashley M Hoy Work Phone: [facility] 250 DO Work Phone: 08-17-2021 09:47-0500 Body mass index (BMI) [Ratio] 25.01 kg/m2 Ashley M Hoy Work Phone: [facility] 250 DO Work Phone: 08-17-2021 09:47-0500 Body surface area Derived from formula 1.67 m2 Ashley M Hoy Work Phone: [facility] 250 DO Work Phone: 08-17-2021 09:47-0500 Body weight 64.05 kg Ashley M Hoy Work Phone: [facility] 250 DO Work Phone: 08-17-2021 09:47-0500 Diastolic blood pressure 86 mm[Hg] Ashley M Hoy Work Phone: [facility] 250 DO Work Phone: 08-17-2021 09:47-0500 Heart rate 72 /min Ashley M Hoy Work Phone: [facility] 250 DO Work Phone: 08-17-2021 09:47-0500 Systolic blood pressure 134 mm[Hg] Ashley M Hoy Work Phone: [facility] DO Work Phone: Encounters Encounter Date Encounter Type Care Provider Facility Start: 06-23-2025 End: 06-23-2025 Ruben Sinha DO Work Phone: [facility] Start: 06-23-2025 End: 06-23-2025 Bamboo flowsheet Bridgett Soo Stanleytito DO Work Phone: [facility] Start: 06-23-2025 End: 06-23-2025 ambulatory Fawad BRIDGETT Soo SINHA Not Available Start: 06-23-2025 End: 06-23-2025 Office outpatient visit 15 minutes JrFawad Sarmiento Soo Stanleytito DO Work Phone: [facility] Comment on above: Tendonitis of wrist, right; Right wrist pain Start: 06-16-2025 End: 06-16-2025 ambulatory BRIDGETT GONZALEZ Not Available Start: 06-02-2025 End: 06-02-2025 Bamboo flowsheet JrFawad Bridgett Soo Stanleytito DO Work Phone: [facility] Start: 06-02-2025 End: 06-02-2025 Bamboo flowsheet Bridgett Soo Stanleytito DO Work Phone: [facility] Start: 06-02-2025 End: 06-02-2025 Office outpatient visit 15 minutes JrFawad Angeltito DO Work Phone: [facility] Comment on above: Chronic pain of righ t wrist Start: 06-02-2025 End: 06-02-2025 ambulatory BRIDGETT GONZALEZ Not Available Start: 05-27-2025 End: 05-27-2025 Patient encounter procedure Rae Louie MD Work Phone: [facility] 111 Comment on above: Numbness (Primary Dx ); Paresthesias; Carpal tunnel syndrome, left Start: 05-27-2025 End: 05-27-2025 ambulatory RAE LOUIE Not Available Start: 05-15-2025 End: 05-15-2025 Bamboo flowsheet Raji RINALDI Work Phone: [facility] Start: 05-15-2025 End: 05-15-2025 Bamboo flowsheet Raji Byrd PA Work Phone: [facility] Start: 05-15-2025 End: 05-15-2025 ambulatory RAJI BYRD Not Available Start: 05-15-2025 End: 05-15-2025 Office outpatient visit 15 minutes Raji Byrd PA Work Phone: [facility] Comment on above: Right wrist pain (Pr imary Dx); Arm weakness; Numbness; Arm pain, right; Ulnar neuropathy of right upper extremity Start: 05-08-2025 End: 05-08-2025 ambulatory [facility] Start: 01-30-2025 End: 01-30-2025 ambulatory [facility] Start: 01-17-2025 End: 01-17-2025 ambulatory [facility] Start: 01-09-2025 End: 01-09-2025 ambulatory [facility] Start: 12-31-2024 End: 12-31-2024 ambulatory [facility] Start: 12-12-2024 End: 12-12-2024 ambulatory [facility] Start: 11-26-2024 End: 11-26-2024 Bamboo flowsheet Raji RIANLDI Work Phone: [facility] Start: 11-26-2024 End: 11-26-2024 Bamboo flowsheet Raji Byrd PA Work Phone: [facility] Start: 11-26-2024 End: 11-26-2024 Office outpatient visit 15 minutes Raji RINALDI Work Phone: [facility] Comment on above: Acute pain of right wrist (Primary Dx); Tendonitis of wrist, right Start: 11-26-2024 End: 11-26-2024 ambulatory RAJI BYRD Not Available Start: 10-11-2024 End: 10-11-2024 ambulatory RADHA Vann [facility] Start: 09-05-2024 End: 09-05-2024 ambulatory [facility] Start: 09-05-2024 End: 09-05-2024 Transitional care manage srvc 14 day discharge Celso Garibay DO Work Phone: [facility] Comment on above: Atherosclerosis of c oronary artery bypass graft of little traverse heart without angina pectoris; S/P PTCA (percutaneous transluminal coronary angioplasty); History of coronary artery bypass graft; Ischemic cardiomyopathy; Essential hypertension; Mixed hyperlipidemia; BMI 30.0-30.9,adult; Statin intolerance Start: 08-20-2024 End: 08-22-2024 Evaluation and management of inpatient Donis Arroyo Facility:[facility] Start: 08-18-2024 Evaluation and management of inpatient Ashley Grigsby MD Work Phone: [facility] Work Phone: Start: 08-18-2024 observation encounter Ashley Grigsby MD Work Phone: [facility] Work Phone: Start: 08-13-2024 End: 08-13-2024 ambulatory [facility] Amb[facility] Start: 08-13-2024 End: 08-13-2024 Office outpatient visit 25 minutes Celso Cintrondon DO Work Phone: [facility] Comment on above: Atherosclerosis of c oronary artery of little traverse heart without angina pectoris, unspecified vessel or lesion type; History of coronary artery bypass graft; Essential hypertension, benign; Hyperlipidemia, unspecified hyperlipidemia type; Acute pancreatitis, unspecified complication status, unspecified pancreatitis type ([facility]) Start: 08-05-2024 End: 08-05-2024 ambulatory GENTRY-C JENNIFER MARTINO Facility:[facility] Start: 08-05-2024 End: 08-05-2024 Patient encounter procedure JENNIFER MARTINO [facility] Start: 04-10-2024 End: 04-10-2024 ambulatory GENTRY-Soo MARTINO Facility:[facility] Start: 04-10-2024 End: 04-10-2024 Patient encounter procedure JENNIFER MARTINO [facility] Start: 03-11-2024 End: 03-11-2024 ambulatory PA-C JENNIFER MARTINO Facility:[facility] Start: 03-11-2024 End: 03-11-2024 Patient encounter procedure JENNIFER MARTINO [facility] Start: 03-07-2024 End: 03-07-2024 Evaluation and management of inpatient [facility] Start: 03-06-2024 End: 03-07-2024 Evaluation and management of inpatient [facility] Start: 03-06-2024 End: 03-06-2024 Evaluation and management of inpatient [facility] Start: 02-29-2024 End: 02-29-2024 Evaluation and management of inpatient [facility] Start: 02-29-2024 End: 02-29-2024 Admission to [facility] Phone Call Provider 4 [facility] Start: 02-14-2024 End: 02-14-2024 Orders Only Stephanie Berger MD PhD Work Phone: [facility] Comment on above: Xerostomia (Primary Dx) Start: 01-17-2024 End: 01-17-2024 ambulatory STEPHANIE BERGER [facility] Start: 01-17-2024 End: 01-17-2024 Office outpatient visit 15 minutes Stephanie Berger MD PhD Work Phone: [facility] Comment on above: Dry nose (Primary Dx ); Xerostomia; Allergic rhinitis, unspecified seasonality, unspecified trigger Start: 08-14-2023 End: 08-14-2023 Office outpatient visit 15 minutes Celso Garibay DO Work Phone: [facility] Comment on above: Atherosclerosis of c oronary artery of little traverse heart without angina pectoris, unspecified vessel or lesion type; History of coronary artery bypass graft; Ischemic cardiomyopathy; Essential hypertension, benign Start: 06-18-2023 End: 06-18-2023 [facility] Start: 06-18-2023 End: 06-18-2023 Subsequent hospital visit by physician Gaby Tello DO Work Phone: [facility] Comment on above: Post-menopausal blee ding; Inclusion cyst Start: 05-24-2023 Rx Renewal [facility] Work [facility]: Start: 05-17-2023 Patient encounter procedure Ashley Grigsby Work Phone: [facility] 250 DO Work Phone: Start: 05-15-2023 ambulatory ASHLEY GRIGSBY [facility] Start: 12-12-2022 End: 12-12-2022 ambulatory MD Ashley Grigsby Work Phone: [facility] Work Phone: Start: 12-12-2022 End: 12-12-2022 Patient encounter procedure MD Ashley Grigsby Work Phone: [facility] Work Phone: Start: 11-20-2022 End: 11-20-2022 ambulatory Imad Asaad Other [facility] Other Start: 11-20-2022 Telephone encounter Imad Asaad [facility] Start: 11-10-2022 End: 11-10-2022 Patient encounter procedure MD Ashley Grigsby Work Phone: [facility] [place] Work Phone: Start: 11-02-2022 End: 11-02-2022 Admission to same day surgery center MD Ashley Grigsby Work Phone: [facility] Work Phone: Start: 11-02-2022 End: 11-02-2022 ambulatory MD Ashley Grigsby Work Phone: [facility] Work Phone: Start: 11-01-2022 Telephone encounter Imad Asaad [facility] Start: 11-01-2022 End: 11-01-2022 Admission to same day surgery center MD Ashley Grigsby Work Phone: [facility] Work Phone: Start: 11-01-2022 End: 11-01-2022 ambulatory MD Ashley Grigsby Work Phone: [facility] Work Phone: Start: 10-24-2022 End: 10-24-2022 ambulatory Imad Asaad Other [facility] Other Start: 10-24-2022 [facility] visit new patient Imad Asaad [facility] Start: 10-16-2022 End: 10-17-[address] ASHLEY GRIGSBY Facility:[facility] Start: 10-09-2022 End: 10-10-[address] ASHLEY GRIGSBY Facility:H1 Start: 10-05-2022 Rx Renewal Ashley Grigsby Work Phone: [facility] 250 DO Work Phone: Start: 10-04-2022 End: 10-06-[address] ASHLEY GRIGSBY Facility:H1 Start: 09-19-2022 End: 09-20-[address] DOCTOR PATEL Facility:H1 Start: 08-15-2022 Office outpatient vi sit 15 minutes Ashley Grigsby Work Phone: [facility] 250 DO Work Phone: Start: 08-15-2022 Patient encounter procedure Ashley Grigsby Work Phone: [facility] 250 DO Work Phone: Start: 06-02-2022 End: 06-02-2022 Patient encounter procedure Santiago Guzman LORENA [facility] Start: 05-31-2022 Rx Renewal Ashley Grigsby Work Phone: [facility] 250 DO Work Phone: Start: 02-07-2022 End: 02-07-2022 Patient encounter procedure Ashley Grigsby MD Work Phone: [facility] Start: 02-07-2022 End: 02-07-2022 Subsequent hospital visit by physician Ashley Grigsby MD Work Phone: [facility] Comment on above: Women's annual routi ne gynecological examination Start: 11-21-2021 Rx Renewal Ashley Grigsby Work Phone: [facility] 250 DO Work Phone: Start: 08-17-2021 Office outpatient vi sit 15 minutes Ashley Grigsby Work Phone: [facility] 250 DO Work Phone: Start: 08-19-2019 End: [...] 11-02-2032 Screening for malignant neoplasm of colon [facility] Start: 02-07-2027 Screening for malignant neoplasm of cervix [facility] Start: 08-18-2025 End: 08-18-2025 Patient encounter procedure 08/18/2025 11:20 AM EST Office Visit [facility] [address] [facility] [address] [place] [address] Celso Garibay DO [address] [facility] [address] [place] [address] [facility] Start: 08-04-2025 End: 08-04-2025 Patient encounter procedure 08/04/2025 10:45 AM EST Office Visit [facility] [place] [place] [address] Jr. Bridgett Sinha, DO [address] [facility] [address] [place] [address] [facility] Start: 08-03-2025 End: 08-13-2025 Alanine aminotransferase [Enzymatic activity/volume] in Serum or Plasma by With P-5'-P Alanine Aminotransferase Lab Routine Hyperlipidemia, unspecified hyperlipidemia type Expected: 08/03/2025 (Approximate), Expires: 08/13/2025 [facility] Service Area Work Phone: Comment on above: Expected: 08/03/2025 (Approximate), Expi res: 08/13/2025 Start: 08-03-2025 End: 08-13-2025 Aspartate aminotransferase [Enzymatic activity/volume] in Serum or Plasma by With P-5'-P Aspartate Aminotransferase Lab Routine Hyperlipidemia, unspecified hyperlipidemia type Expected: 08/03/2025 (Approximate), Expires: 08/13/2025 [facility] Work Phone: Comment on above: Expected: 08/03/2025 (Approximate), Expi res: 08/13/2025 Start: 08-03-2025 End: 08-13-2025 Lipid 1996 panel - Serum or Plasma Lipid Panel Lab Routine Hyperlipidemia, unspecified hyperlipidemia type Expected: 08/03/2025 (Approximate), Expires: 08/13/2025 [facility] Work Phone: Comment on above: Expected: 08/03/2025 (Approximate), Expi res: 08/13/2025 Start: 07-14-2025 End: 07-14-2025 ambulatory 07/14/2025 5:00 PM EDT Evaluation [facility] [address] [place] [phone] Kayode Francois, PT [address] [facility] [place] [address] [facility] Start: 06-23-2025 End: 06-23-2025 Patient encounter procedure 06/23/2025 11:00 AM EDT Office Visit [facility] [address] [place] [phone] Jr. Bridgett Sinha, [address] [facility] [address] [place] [address] [facility] Start: 06-02-2025 End: 06-02-2026 MR Wrist - right WO contrast MR wrist right wo IV cont rast Imaging Routine Chronic pain of right wrist Expected: 06/02/2025 (Approximate), Expires: 06/02/2026 [facility] Work Phone: Comment on above: Expected: 06/02/2025 (Approximate), Expi res: 06/02/2026 Start: 06-02-2025 End: 06-02-2025 Patient encounter procedure [facility] Comment on above: Arrived Start: 06-01-2025 Influenza vaccination Influenza Vaccine (#1) [facility] Start: 05-15-2025 End: 05-15-2026 EMG AND NERVE CONDUCTION STUDY EMG AND NERVE CONDUCTIO N STUDY Neurology Routine Arm weakness Numbness Arm pain, right Ulnar neuropathy of right upper extremity Expected: 05/15/2025 (Approximate), Expires: 05/15/2026 [facility] Work Phone: Comment on above: Expected: 05/15/2025 (Approximate), Expi res: 05/15/2026 Start: 03-17-2025 End: 03-17-2025 Patient encounter procedure 03/17/2025 2:40 PM EDT Off ice Visit [facility] [address] [facility] [address] [place] [address] Celso Garibay DO [address] [facility] [address] [place] [address] [facility] Start: 02-28-2025 Adult BMI Screening Adult BMI Screening [facility] Start: 02-07-2025 Screening for malignant neoplasm of cervix [facility] Start: 01-16-2025 Adult BMI Screening Adult BMI Screening [facility] Start: 01-16-2025 Tobacco Screening Tobacco Screening [facility] Start: 01-15-2025 End: 01-15-2025 Patient encounter procedure 01/15/2025 4:00 PM EDT [facility] [address] [place] [phone] Stephanie Berger MD PhD [address] [facility] [address] [place] [address] [facility] Start: 11-26-2024 End: 11-26-2024 Patient encounter procedure 11/26/2024 1:00 PM EST Off ice Visit [facility] [address] [place] [phone] Raji Byrd PA [address] [place] [address] [address] [place] [address] Acute pain of right wrist (Primary Dx) [facility] Comment on above: Acute pain of right wrist (Primary Dx) Start: 08-19-2024 Screening for malignant neoplasm of cervix [facility] Start: 08-19-2024 [facility] Start: 08-19-2024 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 to 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 baker [facility] Start: 08-19-2024 [facility] Start: 08-18-2024 Hospital admission [facility] Start: 08-15-2024 Screening for malignant neoplasm of breast Mammogram [facility] Start: 08-13-2024 End: 08-13-2024 Patient encounter procedure 08/13/2024 11:30 AM EST Office Visit [facility] [address] [place] [address] Celso Garibay DO [address] [place] [address] [facility] Start: 2024 RSV High Risk: (Elderly (60+) or Population) (1 - Risk 60-74 years 1-dose series) RSV High Risk: (Elderly (60+) or Population) (1 - Risk 60-74 years 1-dose series) [facility] Start: 06-01-2024 COVID-19 Vaccine ( season) COVID-19 Vaccine ( season) [facility] Start: 06-01-2024 Influenza vaccination Influenza Vaccine [facility] Start: 03-06-2024 End: 03-06-2024 Admission to same day surgery center 03/06/2024 11:30 AM EDT - 03/06/2024 12:45 PM EDT Surgery [facility] [address] [place] [address] Danielle Magallon MD [address] [place] [address] ESOPHAGOGASTRODUODENOSCOPY DIAGNOSTIC [54182 (CPT )] [facility] Comment on above: ESOPHAGOGASTRODUODENOSCOPY DIAGNOSTIC [4 3235 (CPT )] Start: 03-06-2024 End: 03-06-2024 Esophagogastroduodenoscopy transoral diagnostic ESOPHAGOGASTRODUODENOSCOPY DIAGNOSTIC ACUTE RECURRING PANCREATITIS, EPIGASTRIC PAIN 03/06/2024 11:30 AM EDT [facility] Start: 03-06-2024 End: 03-06-2024 Esophagoscopy flexible transoral ultrasound exam ENDOSCOPIC ULTRASOUND UPPER ACUTE RECURRING PANCREATITIS, EPIGASTRIC PAIN 03/06/2024 11:30 AM EDT [facility] Start: 03-06-2024 Subsequent hospital visit by physician 03/06/2024 11:30 AM EDT Hospital Encounter [facility] [address] [facility] [place] [address] Danielle Magallon MD [address] [place] [address] [facility] Start: 02-14-2024 Depression Screen Depression Screen [facility] Start: 02-12-2024 End: 08-14-2024 Alanine aminotransferase [Enzymatic activity/volume] in Serum or Plasma by With P-5'-P Alanine Aminotransferase Lab Routine History of coronary artery bypass graft Ischemic cardiomyopathy Expected: 02/12/2024 (Approximate), Expires: 08/14/2024 [facility] Work Phone: Comment on above: Expected: 02/12/2024 (Approximate), Expi res: 08/14/2024 Start: 02-12-2024 End: 08-14-2024 Aspartate aminotransferase [Enzymatic activity/volume] in Serum or Plasma by With P-5'-P Aspartate Aminotransferase Lab Routine Atherosclerosis of coronary artery of [place] heart without angina pectoris, unspecified vessel or lesion type Ischemic cardiomyopathy Expected: 02/12/2024 (Approximate), Expires: 08/14/2024 [facility] Work Phone: Comment on above: Expected: 02/12/2024 (Approximate), Expi res: 08/14/2024 Start: 02-12-2024 End: 08-14-2024 Lipid 1996 panel - Serum or Plasma Lipid Panel Lab Routine Atherosclerosis of coronary artery of [place] heart without angina pectoris, unspecified vessel or lesion type Expected: 02/12/2024 (Approximate), Expires: 08/14/2024 [facility] Service Area Work Phone: Comment on above: Expected: 02/12/2024 (Approximate), Expi res: 08/14/2024 Start: 08-14-2023 FUV, Provider: Celso Garibay, Status: Julio, Time: 3:00 PM FUV, Provider: Celso Garibay, Status: Julio, Time: 3:00 PM -[facility] 250 DO Work Phone: Start: 07-28-2023 Screening for malignant neoplasm of breast Breast cancer screen [facility] Start: 07-24-2023 Screening for malignant neoplasm of breast Mammogram [facility] Start: 07-03-2023 End: 07-03-2023 Patient encounter procedure 07/03/2023 4:45 PM EDT Off ice Visit [facility] & [place] [address] Gaby Phillips, DO [address] [place], [place] [id number] post-op BA 05/[address] [facility] Comment on above: post-op BA 05/16 Start: 06-18-2023 End: 06-18-2023 Hysteroscopy bx endometrium&/polypc w/wo d&c DILATATION AND CURETTAGE HYSTEROSCOPY Post-menopausal bleeding Inclusion cyst 06/18/2023 2:01 PM EDT [facility] Start: 06-01-2023 COVID-19 Vaccine () COVID-19 Vaccine () [facility] Start: 02-13-2023 End: 02-13-2023 Patient encounter procedure 02/13/2023 Office Visit Obstetrics and Gynecology Gaby Phillips, DO [address] [place] [address] [facility] Start: 12-12-2022 [facility] Start: 11-02-2022 [facility] Start: 11-01-2022 [facility] Start: 08-19-2022 Screening for malignant neoplasm of cervix Pap smear [facility] Start: 08-15-2022 FUV, Provider: Celso Garibay, Status: Pen, Time: 3:00 PM FUV, Provider: Celso Garibay, Status: Pen, Time: 3:00 PM [facility] 250 DO Work Phone: Start: 08-03-2022 Lipid panel Lipids [facility] Start: 09-26-2021 COVID-19 Vaccine (4 - Pfizer series) COVID-19 Vaccine (4 - Pfizer series) [facility] Start: 06-01-2019 Influenza vaccination Flu vaccine (#1) [facility]- [place], [place] Start: 05-09-2018 Pneumococcal Vaccine: Pediatrics (0 to 5 Years) and At-Risk Patients (6 to 64 Years) (2 - PCV) Pneumococcal Vaccine: Pediatrics (0 to 5 Years) and At-Risk Patients (6 to 64 Years) (2 - PCV) [facility] Start: 05-09-2018 Pneumococcal Vaccine: Pediatrics (0 to 5 Years) and At-Risk Patients (6 to 64 Years) (2 of 2 - PCV) Pneumococcal Vaccine: Pediatrics (0 to 5 Years) and At-Risk Patients (6 to 64 Years) (2 of 2 - PCV) [facility] Start: 2014 Breast cancer screen Breast cancer screen [place], [place] Start: 2014 Colon cancer screen colonoscopy Colon cancer screen colonoscopy [place], [place] Start: 2014 Shingles Vaccine (1 of 2) Shingles Vaccine (1 of 2) [facility] Start: 08-26-2009 MMR Vaccines (1 of 1 - Standard series) MMR Vaccines (1 of 1 - Standard series) [facility] Start: 2009 Screening for malignant neoplasm of colon [facility] Start: 1999 Diabetes screen Diabetes screen [facility] Start: 1986 DTaP/Tdap/Td Vaccines (1 - Tdap) DTaP/Tdap/Td Vaccines (1 - Tdap) [facility] Start: 1985 Cervical cancer screen Cervical cancer screen [place], [place] Start: 1985 Screening for malignant neoplasm of cervix [facility] Start: 1983 DTaP,Tdap and Td Vaccines (1 - Tdap) DTaP,Tdap and Td Vaccines (1 - Tdap) [facility] Start: 1983 DTaP/Tdap/Td vaccine (1 - Tdap) DTaP/Tdap/Td vaccine (1 - Tdap) [facility] Start: 1982 Adult BMI Follow Up Plan Adult BMI Follow Up Plan [facility] Start: 1982 Diabetes mellitus screening Diabetes Screening [facility] Start: 1982 Hepatitis C screening [facility] Start: 1979 HIV screen HIV screen [place], [place] Start: 1979 HIV screening HIV screen [facility] Start: 1976 Depression Screen Depression Screen [facility] Start: 1976 Depression Screening Depression Screening [facility] Start: 1975 DTaP/Tdap/Td vaccine (1 - Tdap) DTaP/Tdap/Td vaccine (1 - Tdap) [place], [place] Start: 1974 Lipid panel Lipids [facility] Start: 1974 Lipid screen Lipid screen [place], [place] Start: 1964 Hepatitis B vaccine (1 of 3 - 3-dose series) Hepatitis B vaccine (1 of 3 - 3-dose series) [facility] Start: 1964 Hepatitis B Vaccines (1 of 3 - 3-dose series) Hepatitis B Vaccines (1 of 3 - 3-dose series) [facility] Start: 1964 Hepatitis C screen Hepatitis C screen [place], [place] Start: 1964 HIV screening HIV Screening [facility] Start: 1964 Lipid panel Lipid Panel [facility] Start: 1964 Screening for malignant neoplasm of colon [facility] Start: 1964 Yearly Adult Physical Yearly Adult Physical [facility] Actin smooth muscle IgG Ab [Units/volume] in Serum [facility] Alpha 1 antitrypsin [Mass/volume] in Serum or Plasma [facility] Alpha 1 antitrypsin phenotyping [Identifier] in Serum or Plasma by Immunofixation [facility] Ceruloplasmin [Mass/ volume] in Serum or Plasma [facility] End: 08-19-2019 Cytopathology procedure, preparation of smear, genital source PAP SMEAR Lab Routine Well female exam with routine gynecological exam 1 Occurrences starting 08/19/2019 until 08/19/2019 [place], [place] Comment on above: 1 Occurrences starting 08/19/2019 until 08/19/2019 End: 02-07-2022 Cytopathology procedure, preparation of smear, genital source PAP SMEAR Lab Routine Women's annual routine gynecological examination 1 Occurrences starting 02/07/2022 until 02/07/2022 [facility] Work Phone: Comment on above: 1 Occurrences starting 02/07/2022 until 02/07/2022 Glucose measurement estimated from glycated hemoglobin [facility] Hepatitis A virus Ab [Presence] in Serum by Immunoassay [facility] Hepatitis B core ant ibody measurement [facility] Hepatitis B virus khanna rface Ab [Presence] in Serum [facility] Hepatitis B virus khanna rface Ag [Presence] in Serum or Plasma by Immunoassay [facility] Hepatitis C virus Ig G Ab [Presence] in Serum or Plasma by Immunoassay [facility] Homogenous nuclear A b pattern [Titer] in Serum [facility] IgG [Mass/volume] in Serum or Plasma [facility] End: 06-18-2023 INITIATE PACU OXYGEN THERAPY PROTOCOL Initiate PACU Oxygen Therapy Protocol Respiratory Care Routine Continuous until discontinued starting 06/18/2023 [facility] Comment on above: Continuous until discontinued starting 0 06/18/2023 Lipoprotein a [Moles /volume] in Serum or Plasma [facility] Mitochondria M2 IgG Ab [Units/volume] in Serum [facility] Nuclear Ab [Titer] in Serum [facility] Oxygen therapy [Mini mum Data Set] Initiate Oxygen Therapy Protocol Respiratory Care Routine As Needed until discontinued starting 06/18/2023 [facility] Comment on above: As Needed until discontinued starting Oxygen therapy [Mini mum Data Set] Initiate Oxygen Therapy Protocol Respiratory Care Routine As Needed until discontinued starting 06/18/2023 [facility] Comment on above: As Needed until discontinued starting Patient Education Hemorrhoids (DC) [facility] Work Phone: End: 06-18-2023 , urine POCT , urine POCT Point of Care Testing Routine One Time for 1 Occurrences starting 06/18/2023 until 06/18/2023 [facility] Comment on above: One Time for 1 Occurrences starting 06/01 until 06/18/2023 Surgical Pathology Surgical Path ology Lab Routine Post-menopausal bleeding Inclusion cyst Release Upon Ordering for 1 Occurrences starting 06/18/2023 [facility] Comment on above: Release Upon Ordering for 1 Occurrences starting 06/18/2023 [facility] Immunizations Immunization Date Immunization Notes Care Provider Fa cility 06-05-2024 influenza virus vacc ine, unspecified formulation Raji RINALDI Work Phone: [facility] 06-01-2024 influenza, unspecifi ed formulation JENNIFER MARTINO [facility] 06-05-2023 influenza virus vacc ine, unspecified formulation Stephanie Berger MD PhD Work Phone: [facility] 06-16-2022 influenza, injectabl e, quadrivalent, preservative free Ashley M Hoy Work Phone: [facility] 250 DO Work Phone: 06-16-2022 zoster vaccine recombinant Ashley M Hoy Work Phone: [facility] Work Phone: 08-01-2021 Pfizer-BioNTech COVI D-19 Vacc 30 MCG/0.3ML Intramuscular Suspension [facility]oy [facility] Work Phone: 06-30-2021 influenza virus vacc ine, unspecified formulation Ashley M Hoy [facility] Work Phone: 06-03-2021 Influenza, injectabl e, Madin Bushnell Canine Kidney, preservative free, quadrivalent Ashley M Hoy Work Phone[facility] 250 DO Work Phone: 01-29-2021 Pfizer-BioNTech COVI D-19 Vacc 30 MCG/0.3ML Intramuscular Suspension Ashley M [facility]oy Work [facility]: [facility] DO Work Phone: 01-08-2021 Pfizer-BioNTech COVI D-19 Vacc 30 MCG/0.3ML Intramuscular Suspension Ashley M Hoy Work Phone: [facility] 2020 influenza, injectabl e, quadrivalent, preservative free Ashley M Hoy Work Phone: [facility] DO Work Phone: 07-23-2018 influenza, injectabl e, quadrivalent, preservative free Ashley M Hoy Work Phone: [facility] 250 DO Work Phone: 07-26-2017 Influenza, injectabl e, Madin Bushnell Canine Kidney, preservative free, quadrivalent Ashley M Hoy Work Phone[facility] DO Work Phone: 05-09-2017 pneumococcal polysaccharide vaccine, 23 valent Ashley M Hoy Work Phone: [facility] 250 DO Work Phone: 07-03-2015 influenza, seasonal, injectable, preservative free Ashley M Hoy Work Phone: [facility] Work Phone: 06-15-2014 influenza, seasonal, injectable Ashley M Hoy Work Phone: [facility] 250 DO Work Phone: 07-29-2009 novel influenza-H1N1 -09, preservative-free, injectable Ashley M Hoy Work Phone: [facility] 250 DO Work Phone: Payers Date Payer Category Payer Self-pay [id number] [phone] [id number] 2022 [facility] [id number] 2022 [facility] [id number] 2022 Unknown 2019 Unknown [employer] [place] xxxxxxxxxxxxxxx 2019-Present [address] [place] [address] xxxxxxxxxxxxxxx [id number] 1964 Unknown [id number] 2.16.840.1.007466.3.579.2.5 93 1964 Unknown [id number] 2.16.840.1.448746.3.579.2.5 93 1964 Unknown [id number] 2.16.840.1.563752.3.579.2.5 93 1964 Unknown [id number] 2.16.840.1.190126.3.579.2.5 93 1964 Unknown [id number] 2.16.840.1.144258.3.579.2.5 93 1964 Unknown [id number] 2.16.840.1.607287.3.579.2.1 73 1964 Unknown [id number] 2.16.840.1.180467.3.579.2.1 75 1964 Unknown [id number] 2.16.840.1.243592.3.579.2.1 286 1964 Unknown [id number] 2.16.840.1.250841.3.579.2.1 286 1964 Unknown [id number] 2.16.840.1.950005.3.579.2.1 286 1964 Unknown [id number] 2.16.840.1.635444.3.579.2.1 286 1964 Unknown [id number] 2.16.840.1.785005.3.579.2.1 286 1964 Unknown [id number] 2.16.840.1.632106.3.579.2.1 286 1964 Unknown [id number] 2.16.840.1.993662.3.579.2.1 286 1964 Unknown [id number] 2.16.840.1.401012.3.579.2.7 27 1964 Unknown [id number] 2.16.840.1.345907.3.579.2.7 27 1964 Unknown [id number] 2.16.840.1.954024.3.579.2.7 27 1964 Unknown [id number] 2.16.840.1.904159.3.579.2.1 244 1964 Unknown [id number] 2.16.840.1.586775.3.579.2.1 244 1964 Unknown [id number] 2.16.840.1.273763.3.579.2.1 286 1964 Unknown [id number] 2.16.840.1.815732.3.579.2.1 286 1964 Unknown [id number] 2.16.840.1.878043.3.579.2.1 259 1964 Unknown [id number] 2.16.840.1.905305.3.579.2.1 259 1964 Unknown [id number] 2.16.840.1.696945.3.579.2.1 259 1964 Unknown [id number] 2.16.840.1.276321.3.579.2.1 259 1964 Unknown [id number] 2.16.840.1.510723.3.579.2.1 259 1964 Unknown [id number] 2.16.840.1.042209.3.579.2.1 259 1964 Unknown [id number] 2.16.840.1.665370.3.579.2.1 259 1964 Unknown [id number] 2.16.840.1.551499.3.579.2.1 259 1959 Unknown [id number] 1959 Unknown [id number] Unknown [id number] 2.16.840.1.217954.3.579.2.5 31 Social History Date Type Detail Facility Start: 08-19-2019 End: 09-13-2023 Tobacco smoking status NHIS Never smoker [place], [place] Start: 08-19-2019 End: 06-23-2025 Alcohol intake Ex-drinker (finding) [facility] Start: 1965 Sex Assigned At Not on file [place] Start: 06-18-2023 End: 06-23-2025 No alcohol use No alcohol use [facility] 250 DO Work Phone: Start: 08-19-2019 End: 09-13-2023 Tobacco use and exposure Smokeless tobacco non-user [facility] Work Phone: Start: 06-18-2023 End: 06-23-2025 Sex Assigned At Female [facility] Start: 1965 Sex Assigned At Female [facility] Patient Health Questionnaire 9 item (PHQ-9) total score [Reported] 0 [facility] Start: 08-14-2023 End: 09-05-2024 Alcohol intake Lifetime non-drinker (finding) [facility] Work Phone: Start: 08-04-2023 End: 09-05-2024 Exposure to SARS-CoV-2 (event) Not sure [facility] Start: 08-19-2024 Sex Female (finding) [facility] Start: 01-17-2024 End: 02-29-2024 Alcoholic beverage intake Current non-drinker of alcohol (finding) [facility] Start: 09-12-2023 Gender identity Identifies as female gender (finding) [facility] NEGATED: Highlighted row Denies Caffeine use Denies Caffeine use -[facility] 250 DO Work Phone: Medical Equipment Procedure [...] Tissue Alloderm Nonmesh 2x4cm - Sna - [id number] Start: 09-06-2017 Lens Iol Ultrase rt 17.0d - [id number] - [id number] Start: 11-14-2018 Sinus Implant Propel Mini - Sna - [id number] Start: 01-03-2018 Sinus Implant Propel - Sna - [id number] Start: 01-03-2018 Acrysofiq Restor [id number] Start: 11-05-2018 Goals Date Patient Goal Desired Activity /State Functional Status Date Assessment Result Facility 08-05-2024 Functional Status N/A [facility] 04-10-2024 Functional Status N/A [facility] 06-02-2022 Functional Status N/A [facility] Clinical Notes 06-02-2022 to 06-23-2025 Jr. Bridgett [...] requiring urgent evaluation. documented in this encounter [facility] 06-02-2025 History of Present illness Narrative Images [...] IV contrast MRI RT wrist w/o at [facility]. Orbits if needed. Please contact [...] requiring urgent evaluation. documented in this encounter [facility] 05-27-2025 History of Present illness Narrative [facility] Patient: Jose Alberto Saleem [address], [address] , Sex: 1965, Male [place] [id number] Height: 160 cm Ref Phys: Byrd fax [...] Doub=doublet; Fasc=fasciculation; FFE=full for effort; Fib=fibrillation; Myokym=myokymia; [place]=myotonic potential; N,0=normal; NR=no response; Polyph=polyphasia; Pos=positive [sharp] [...] e.g. peripheral neuropathy or mononeuritis multiplex. Rae oLuie M.D. Diplomate, [place] [employer]iat[employer] and Neurology (neurology, epilepsy, sleep medicine) Diplomate, [place] Board of Clinical Neurophysiology Diplomate, [place] Board of Preventive Medicine (clinical informatics) . documented in this encounter [facility] 05-19-2025 Note Called patient today to let her know that a referral has been sent to Dr. Juan Mantilla with [facility] for her sphincter of [...] dosage depending on her snack, verifies understanding. [facility] 05-15-2025 History of Present illness Narrative Images [...] her hand tightly in a fist. Symmetric conservation assistant strength noted. She has had prior carpal [...] requiring urgent evaluation. Visit was preformed using [employer]-p[employer] supervisor speech recognition. documented in this encounter [facility] 05-14-2025 Note Called patient to fo llow [...] Rivera in the clinic and Dr. Watson. [facility] 05-08-2025 Note Attestation signed by Chauncey Kimble MD at 05/08/2025 4:15 PM I personally saw the patient with the resident/fellow on the same day of service. I discussed the findings and therapeutic plan with the resident/fellow and with the patient. I agree with the documentation. [facility] Gastroenterology Follow-Up Patient Visit CHIEF [...] B12/Folate/Iron studies: Lab Results Component Value Date [id number] 1,862 (H) 02/27/2024 FOLATE 39.0 02/27/2024 IRON [...] 2.02 02/27/2024 Pancreatiti (more content not included)... [facility] 01-09-2025 Note Attestation signed by Chauncey Kimble [...] Follow-up MRI follow up and seen at [facility] and in hospital for 1 day. [...] on for which she was admitted at [facility] and was management symptomatically. Patient reported since [...] Plavix, baby aspirin, amlodipine, and a PRN Powderly for pain. Of note, she has a [...] which were ordered at the outside facility ([facility]) and remain pending. A HIDA scan may also be pursued for further evaluation. She reports extreme fatigue post-hospitalization, interfering with her work and daily function. She prefers to avoid surgical intervention unless necessary and is open to advanced enteroscopy (e.g., device-assisted ERCP) at tertiary centers ([facility] or [facility]) as a less invasive alternative to laparoscopic-assisted ERCP. Plan includes requesting complete LFTs and pancreatic (more content not included)... [facility] 12-12-2024 Note Attestation signed by Chauncey Kimble [...] on for which she was admitted at [facility] and was management symptomatically. Patient reported since [...] healthy appearing mucosa. This was traversed. The azvor-tb-aukznyd limb was characterized by healthy appearing mucosa. [...] Angina pectoris Atherosclerosis of coronary artery of little traverse heart without angina pectoris Cellulitis of right [...] Mother Gretta Hyperlipidemia Father Alexander Hyperlipidemia Brother Bimble Heart attack Brother Ray SOCIAL HISTORY: Social History Tobacco Use Smoking status: Never Smokeless tobacco: Never Vaping Use Vaping status: Never Used Substance Use Topics Alcohol use: Never Drug use: Never ALLERGIES: Baclofen; Latex, natural rubber; Penicillins; Sulfa (sulfonamide antibiotics); Rosuvastatin; Sulfamethoxazole-trimethoprim; Fenofibrate; Fenofibrate micronized; Fluvastatin; Levofloxacin; Phenazopyridine; Simvastatin; Trimethoprim; and Tobramycin Current Med (more content not included)... [facility] 11-26-2024 History of Present illness Narrative [...] AND FELT A POP 10/08/24- WENT TO [facility]; SENT TO ER XRAYS XRAY RT WRIST TODAY EPIC 11/26/24 XRAY [facility] RT FORE[facility] 10/11/24 SPLINT DOING WELL [...] xray 10/11/24 (R) Forearm: no acute fracture [facility] Results - Imaging: - X-ray of [...] requiring urgent evaluation. documented in this encounter [facility] 09-05-2024 History of Present illness Narrative Subjective Jose Alberto Saleem is a 59 y.o. female Chief Complaint Follow-up 59-year-old female returns following acute coronary syndrome, with subsequent two-vessel intervention of the vein graft to the diagonal branch with long 3.5 x 38 mm Ray stent and little traverse distal circumflex for in-stent restenosis with 3 x 18 mm Patterson stent. LV function is preserved. WHEELER-LAD remains patent, little traverse right coronary vein graft right coronary is chronically occluded (known from the past) and collateralized via left coronary system, and vein graft to the OM 2 is also occluded chronically however little traverse circumflex is intact. Patient is otherwise stable [...] Atherosclerosis of coronary artery bypass graft of little traverse heart without angina pectoris 2. S/P PTCA [...] discussion and plan. documented in this encounter [facility] Work Phone: 09-05-2024 Instructions Jasmyne Salinas LPN [...] Everywhere.Heart Healthy Diet (Lao)documented in this encounter [facility] Work Phone: 08-19-2024 Evaluation note Diagnosis Onset Date Resolution Atypical chest pain acute Novem rocky 2023 11:18pm [facility] Work Phone: 1(902) 707-708411-13-2024 History of Present illness Narrative* Celso Garibay DO - 08/13/2024 11:30 AM EST Subjective Jose Alberto Saleem is a 59 y.o. female Chief Complaint Annual Exam 59-year-old female returns for annual visit, she just got back from [facility] from vacation last evening and is [...] has a history of remote CABG, remote PA, remote PCI's before and after her CABG [...] Assessment/Plan 1. Atherosclerosis of coronary artery of little traverse heart without angina pectoris, unspecified vessel or lesion type Follow Up In Cardiology 2. History of coronary artery bypass graft Follow Up In Cardiology 3. Essential hypertension, benign 4. Hyperlipidemia, unspecified hyperlipidemia type 5. Acute pancreatitis, unspecified complication status, unspecified pancreatitis type ([facility]) Scribe Attestation By signing my name [...] exam, discussion and plan. [facility] 1(339) 289-814611-13-2024 Instructions* Patient Instructions* Bettie Ugalde LPN - [...] Provided instructions on exercise. [facility] 1(304) 649-906711-05-2024 Hospital Discharge instructions Patient Education 08/05/2024 12:20:10 Kidney Stones, Crww-zn-Bmhk Kidney Stones Kidney stones are rock-like masses [...] Follow these instructions at home: Medicines Take ydhh-qmi-vlttnfa and prescription medicines only as told by [...] provider. Document Revised: 05/11/2023 Document Reviewed: 05/11/2023 Journalism Online Patient Education 2023 [employer] (Formerly [employer] Follow Up Care 06/06/2024 11:10:21 With:JENNIFER MARTINO PA-C, CARLOS Address: When:1 year [facility] 11-05-2024 NotePatient Education Urology Kidney Stones Kidney [...] these instructions at home: Medicines ??? Take mkmc-zrg-qzjxtfs and prescription medicines only as told by [...] provider. Document Revised: 05/11/2023 Document Reviewed: 05/11/2023 [employer] Patient Education ? 2023 [employer] (Former[employer] 04-10-2024 Hospital Discharge instructions Patient Education 04/10/2024 16:08:23 Kidney Stones, Amyt-vi-Qxfy Kidney Stones Kidney stones are rock-like masses [...] Follow these instructions at home: Medicines Take fyjk-ayx-qrpupzt and prescription medicines only as told by [...] provider. Document Revised: 05/22/2022 Document Reviewed: 05/22/2022 Journalism Online Patient Education 2022 [employer] (Formerly [employer]). Follow Up Care 03/10/2024 08:31:33 With:SALENA REDDY JENNIFER López, URL Address: [address] [place] [address] When:3 months [facility] Adelfo 07-11-2024 NotePatient Education Urology Kidney [...] these instructions at home: Medicines ? Take gxmc-fnd-wkcndce and prescription medicines only as told by [...] provider. Document Revised: 05/22/2022 Document Reviewed: 05/22/2022 Journalism Online Patient Education ? 2022 [employer] (Formerly [employer] 02-29-2024 Instructions* Pre-Procedure Instructions - Aracely Boyd RN - 02/29/2024 10:00 AM EDT Your surgery/procedure is scheduled at [facility] on 03/06/2024 at 1130 Arrival Time 0930 [facility] Address: [address] [place] [address] in P1 Parking lot located on [facility]. Report to the Entrance B. Check in at the information desk the surgery. The waiting room located on the second floor. If you have any questions prior to surgery, please call Pre-Admission Clinic at [phone] between 7:30 am and 4:30 pm Sunday through Sunday. If you have questions the morning of surgery, please call the Pre-op Department at [phone]. Notify your SURGEON if you develop any [...] would [facility] to [facility], please call [address] [place] [address] ([phone]). Do not use lotions, creams, powders, perfume, [...] RIGHTS AND RESPONSIBILITIES As a patient at [facility], you have the right to: Receive medical care and be informed of who is taking care of you Be treated with dignity and respect Have a family member/public health representative of choice and your physician notified of your admission Receive information and actively participate in decisions about your care and treatment Refuse care, treatment and services Decide who may provide your support and speak for you Access mandaen and spiritual services Participate in ethical issues [...] of hospital charges and payment methods Patient/patient public health representative responsibilities are to: Provide information about [...] RIGHTS AND RESPONSIBILITIES As a patient at [facility], you have the right to: Receive medical care and be informed of who is taking care of you Be treated with dignity and respect Have a family member/public health representative of choice and your physician notified of your admission Receive information and actively participate in decisions about your care and treatment Refuse care, treatment and services Decide who may provide your support and speak for you Access mandaen and spiritual services Participate in ethical issues [...] of hospital charges and payment methods Patient/patient public health representative responsibilities are to: Provide information about [...] AM EDT Your surgery/procedure is scheduled at [facility] on 03/06/2024 at 1130 Arrival Time 0930 [facility] Address: [address] [place] [address] in Parking lot located on [facility]. Report to the Entrance B. Check in at the information desk the surgery. The waiting room located on the second floor. If you have any questions prior to surgery, please call Pre-Admission Clinic at [phone] between 7:30 am and 4:30 pm Sunday through Sunday. If you have questions the morning of surgery, please call the Pre-op Department at [phone]. Notify your SURGEON if you develop any [...] would like to schedule therapy at a [facility] facility, please call [phone] ([phone]). Do not use lotions, creams, powders, perfume, [...] RIGHTS AND RESPONSIBILITIES As a patient at [facility], you have the right to: Receive medical care and be informed of who is taking care of you Be treated with dignity and respect Have a family member/public health representative of choice and your physician notified of your admission Receive information and actively participate in decisions about your care and treatment Refuse care, treatment and services Decide who may provide your support and speak for you Access mandaen and spiritual services Participate in ethical issues [...] of hospital charges and payment methods Patient/patient public health representative responsibilities are to: Provide information about [...] RIGHTS AND RESPONSIBILITIES As a patient at [facility], you have the right to: Receive medical care and be informed of who is taking care of you Be treated with dignity and respect Have a family member/public health representative of choice and your physician notified of your admission Receive information and actively participate in decisions about your care and treatment Refuse care, treatment and services Decide who may provide your support and speak for you Access mandaen and spiritual services Participate in ethical issues [...] of hospital charges and payment methods Patient/patient public health representative responsibilities are to: Provide information about [...] MD PhD - 01/17/2024 4:00 PM EDT [facility] [address] [place] [id number] SUBJECTIVE: Patient ID (1965): Jose Alberto Saleem [...] Hypertension Kidney stone Kidney stones Myocardial infarction ([facility]) 2014 5 stents Visual impairment Past Surgical History: Procedure Laterality Date APPENDECTOMY BIOPSY SALIVARY GLAND FS N/A 09/06/2017 Performed by Stephanie Berger MD at [facility] CARPAL TUNNEL RELEASE right CHOLECYSTECTOMY CORONARY ARTERY BYPASS GRAFT x4 ENDOSCOPIC FUNCTIONAL SINUS SURGERY Bilateral 01/03/2018 Performed by Stephanie Berger MD at [facility] ENDOSCOPIC SURGERY SINUS Bilateral 01/03/2018 Performed by Stephanie Berger MD at [facility] EXCISION MASS UPPER EXTREMITY Right 11/19/2019 Performed by Stephanie Morse DO at [facility] HERNIA REPAIR LAPAROSCOPIC GASTRIC BYPASS LITHOTRIPSY OVARIAN CYST REMOVAL PHACO KELMAN I IMPLANT INTRAOCULAR LENS Left 11/14/2018 Performed by Nisha Stoll MD at [facility] PHACO KELMAN I IMPLANT INTRAOCULAR LENS Right 11/05/2018 Performed by Nisha Stoll MD at [facility] RELEASE CARPAL TUNNEL Right 01/11/2022 Performed by Stephanie Morse DO at [facility] RELEASE CARPAL TUNNEL [place] CPT 25797 Left 07/19/2022 Performed by Stephanie Morse DO at [facility] RESECTION SUBMUCOSAL Bilateral 09/06/2017 Performed by Stephanie Berger MD at [facility] SEPTOPLASTY SEPTOPLASTY N/A 09/06/2017 Performed by Stephanie Berger MD at [facility] STENT INSERTION LACRIMAL DUCT EYE Right 09/06/2017 Performed by Stephanie Berger MD at [facility] URETERAL STENT PLACEMENT Family History Problem [...] tablets (6.25 mg total) by mouth daily. omwobbmp-kscr-ST-calcium &mins (THERAGRAN-M) 9 mg iron-400 mcg tablet [...] day. (Patient not taking:Reported on 01/17/2024) sod jplmf-ydxrui-zwddzk bottle (NEILMED SINUS RINSE COMPLETE) packet with [...] this chart were generated using voice recognition [employer] dictation software. Although every effort was made to ensure the accuracy of this automated functional director, some errors in functional director may have occurred. documented in this encounterMadison [...] has a history of remote CABG, remote PA, remote PCI's before and after her CABG [...] Assessment/Plan 1. Atherosclerosis of coronary artery of little traverse heart without angina pectoris, unspecified vessel or lesion type 2. History of coronary artery bypass graft 3. Ischemic cardiomyopathy 4. Essential hypertension, benign [facility] 1(397) 983-377811-14-2023 Instructions* Patient Instructions* Ej Braswell MA - [...] time of your visit. [facility]: 1(107) 344-524009-18-2023 Hospital Discharge instructions* Discharge Instructions* Lissa Ocasio [...] call if excessive. Call the office at [phone] ([place]) [phone] ([place]) for an appointment in 2 weeks. [facility] History of Present illness Narrative* Sejal Pro [...] with Dr. Engel. documented [facility] Evaluation note* Encounter Date Diagnosis Assessment Notes Treatment Notes Treatment Clinical Notes Nov, Elevated liver function tests (ICD-10 - R94.5) [employer] Other 02-02-[facility]23 [facility] Evaluation note* Encounter Date Diagnosis Assessment Notes Treatment Notes Treatment Clinical Notes Oct, Abdominal pain (ICD-10 - R10.9) Oct, Common bile duct dilatation (ICD-10 - K83.8) Oct, Elevated liver enzymes (ICD-10 - R74.8) Oct, Constipation (ICD-10 - K59.00) Colonoscopy Start Miralax daily after colonoscopy. Titration dosing discussed with patient. Oct, Colon cancer screening (ICD-10 - Z12.11) [employer] Other 01-04-2023 NotePROGRESS NOTE NOTE DATE: 10/04/2022 CHIEF COMPLAINT: Abdominal pain. HISTORY OF PRESENT ILLNESS: The patient is a 57-year-old female with a history of dyslipidemia and gastric bypass surgery, who has been having increasing abdominal pain and flank pain. She was seen yesterday at the [facility] for epigastric and upper abdominal [...] Lovenox. DISPOSITION: Home when medically stable.[id number] Hospital Discharge instructions Patient Education 06/02/2022 08:51:52 Kidney Stones, Fufx-ju-Jggf Kidney Stones Kidney stones are rock-like masses [...] Follow these instructions at home: Medicines Take cumm-yur-svejaku and prescription medicines only as told by [...] Document Reviewed: 02/03/2020 Elsevier Patient Education 2020 [employer] Inc. Follow Up Care 05/27/2021 09:10:08 With:LORENA STRAUSS, Santiago Guzman, URL Address: [address] [place] [address]- When: Unknown [facility] evaluation + Plan note Future Appointments Appointment Date:06/01/2023 08:00:00 AM Scheduled Provider:Santiago CARRILLO MD Location:[facility] Appointment Type:URO Office Visit [facility] evaluation + Plan note Future Appointments Appointment Date:04/10/2024 03:00:00 PM Scheduled Provider:JENNIFER MARTINO PA-C Location:[facility] Appointment Type:URO Office Visit [facility] evaluation + Plan note Future Scheduled Tests Radiology* XR Abdomen 1 View 08/05/25 [facility] evaluation note* Diagnosis Women's annual routine gynecological examination documented in this encounter [employer] Work Phone: evalxutxmc noteNo assessment information available [facility] Work Phone: Evaluation noteNo InformationNort [employer] Other Evaluation note* Diagnosis Post-menopausal bleeding Postmenopausal bleeding Inclusion cyst Sebaceous cyst documented in this encounter [facility] ModacruzEvaluation note* Diagnosis Atherosclerosis of coronary artery of little traverse heart without angina pectoris, unspecified vessel or lesion type 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 Ischemic cardiomyopathy Other specified forms of chronic ischemic heart disease Essential hypertension, benign documented in this encounter [facility] Work Phone: Evaluation note* Diagnosis Atherosclerosis of coronary artery of little traverse heart without angina pectoris, unspecified vessel or lesion type 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 Essential hypertension, benign Hyperlipidemia, unspecified hyperlipidemia type Acute pancreatitis, unspecified complication status, unspecified pancreatitis type ([facility]) documented in this encounter [facility] Work Phone: Evaluation note* Diagnosis Atherosclerosis of coronary artery bypass graft of little traverse heart without angina pectoris S/P PTCA (percutaneous transluminal coronary angioplasty) Postsurgical percutaneous transluminal coronary angioplasty status 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 Ischemic cardiomyopathy Other specified forms of chronic ischemic heart disease Essential hypertension Unspecified essential hypertension Mixed hyperlipidemia BMI 30.0-30.9,adult Statin intolerance documented in this encounter [facility] Work Phone: Evaluation note* Diagnosis Dry nose- Primary Other diseases of nasal cavity and sinuses Xerostomia Disturbance of salivary secretion Allergic rhinitis, unspecified seasonality, unspecified trigger [facility] Diagnosis Xerostomia- Primary Disturbance of salivary secretion documented in this encounter [facility]* Diagnosis Acute pain of right wrist- Primary Tendonitis of wrist, right documented in this encounter [facility] Healthcare[facility]* Diagnosis Right wrist pain- Primary Pain in joint, forearm Arm weakness Other musculoskeletal symptoms referable to limbs Numbness Disturbance of skin sensation Arm pain, right Pain in soft tissues of limb Ulnar neuropathy of right upper extremity documented in this encounter [facility] Healthcare[facility] note* Diagnosis Numbness- Primary Disturbance [...] and physical note Author Evert Bruno [facility] November 01, 2022 12:40pm Note Date/Time November 01, 2022 1 2:40pm [facility] [address] [place] [address] Gastroenterology H&P Signed Patient: Jose Alberto Saleem MR#: [id number] : 1965 Acct:[id number] Age/Sex: 57 / F Adm Date: 3 [...] signed by Evert Bruno MD> 11/01/22 1240 [facility] Work Phone: History and physical note Author Evert Bruno [facility] November 02, 2022 2:14pm Note Date/Time November 02, 2022 2 :14pm [facility] [address] [place] [address] Gastroenterology H&P Signed Patient: Jose Alberto Saleem MR#: [id number] : 1965 Acct:[id number] Age/Sex: 57 / F Adm Date: 3 [...] signed by Evert Bruno MD> 11/02/22 1414 [facility] Work Phone: History general Narrative - Reported* Type Description Date Medical History impaired fasting glucose Medical History heart disease, PA stents, CABG Medical History Hypertension Medical History hyperlipidemia 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 Surgical History CABG remote history Surgical History gastric bypass 2018 Surgical History multiple kidney stones removed Surgical History appendectomy Surgical History cyst on ovarian removed Surgical History bilateral carpe tunnel surgery 2021 Surgical History cholecystectomy Hospitalization History see surgical hx [employer] Other Hospital course Narrative No data available for this section [facility] Hospital Discharge instructions Additional Instructions DISCHARGE INSTRUCTIONS [...] NOT operate machinery such as power tools, [employer] mowers, snow blowers, sewing machines, etc. for [...] problems. -Follow up with PCP. -Office number [phone]. [facility] Work Phone: Hospital Discharge instructions Additional Instructions [...] NOT operate machinery such as power tools, [employer] mowers, snow blowers, sewing machines, etc. for [...] problems. -Follow up with PCP. -Office number [phone]. [facility] Work Phone: Hospital Discharge instructions No data available for this section [facility] InstructionsNot on filedocumented in this encounter [facility] SystemInstructionsNot on filedocumented in this encounter [facility] System[facility]ructionsNot on filedocumented in this encounter [facility] System[facility] note No data available for this section [facility] reason for referral (narrative)* Consultation (Routine) - Authorized Specialty Diagnoses / Procedures Referred By Contac t Referred To Contact Cardiology Diagnoses Atherosclerosis of coronary artery of little traverse heart without angina pectoris, unspecified vessel or lesion type History of coronary artery bypass graft Procedures Follow Up In Cardiology Celso Garibay, [facility] [address] [place] [address] Celso Garibay DO [address] [facility], [facility] [address] [place] [address] Referral ID Status Reason Start Date Expiration Date V isits Requested Visits Authorized [id number] Authorized 08/14/2023 08/13/2024 1 1 [facility] Work Phone: Reason for visit Narrative* Other Medical (Routine) - Closed Specialty Diagnoses / Procedures Referred By Manfred flynn Referred To Contact Neurology Diagnoses Arm weakness Numbness Arm pain, right Ulnar neuropathy of right upper extremity Procedures EMG AND NERVE CONDUCTION STUDY Raji Byrd, [address] [place] [address] Phone: tel: fax: Rae Louie MD [address] [address] Phone: tel: fax: Referral ID Status Reason Start Date Expiration Date Visits Re quested Visits Authorized [id number] Closed 05/15/2025 11/11/2025 1 1 [facility] Healthcare Summary Purpose Family History Unknown Family [...] Documents on File Type Date Recorded Patient Wedger And Gluer Expl anation Advance Directives and Living Will Power of Ammunition Specialist Documents on File Type Date Recorded Patient Wedger And Gluer Expl anation ACP-Advance Directive ACP-Power of Ammunition Specialist Advance Directive Response Recorded Date/ Time [...] She has known history of prior inferior PA, prior stenting, priorthree-vessel CABG, subsequent PCI of [...] adverse reactions to other medications, hypotension. * [employer] is class I * Recommendations, [...] She has a history of prior inferior PA, prior PCI with subsequent three-vessel CABG and [...] She has a history of prior inferior PA, prior PCI with subsequent three-vessel CABG and [...] AUTHOR AUTHOR'S ORGANIZ ATION 03/26/2018 [facility] DATE CREATED AUTHOR AUTHOR'S ORGANIZ ATION 08/02/2022 [facility] dical Specialist DATE CREATED AUTHOR AUTHOR'S ORGANIZ ATION 08/17/2022 [facility] DATE CREATED AUTHOR AUTHOR'S ORGANIZ ATION 10/17/2022 [facility] DATE CREATED AUTHOR AUTHOR'S ORGANIZ ATION 06/23/[address] [facility] DATE CREATED AUTHOR AUTHOR'S ORGANIZ ATION 07/16/2023 [facility] DATE CREATED AUTHOR AUTHOR'S ORGANIZ ATION 01/19/2024 [facility] DATE CREATED AUTHOR AUTHOR'S ORGANIZ ATION 03/07/2024 [facility] DATE CREATED AUTHOR AUTHOR'S ORGANIZ ATION 08/06/2024 [facility] DATE CREATED AUTHOR AUTHOR'S ORGANIZ ATION 09/15/2024 [facility] DATE CREATED AUTHOR AUTHOR'S ORGANIZ ATION 10/16/2024 [facility] DATE CREATED AUTHOR AUTHOR'S ORGANIZ ATION 01/22/2025 [facility] DATE CREATED AUTHOR AUTHOR'S ORGANIZ ATION 06/15/2025 [facility] DATE CREATED AUTHOR AUTHOR'S ORGANIZ ATION 06/24/2025 [facility] dical Specialists EPIC Care Teams (unrecognized sec [...] Active Evert Bruno MD Attending Provider Active Interior Design Professional Relationship Specialty Start Date End Date Ashley Grigsby MD [address] [place] [address] PCP - General Family Medicine 08/19/19 Interior Design Professional Relationship Specialty Start Date End Date Ashley Grigsby MD [address] [place] [address] PCP - General Family Medicine 08/19/19 Interior Design Professional Relationship Specialty Start Date End Date Ashley Grigsby MD [address] [place] [address] PCP - General 08/17/21 Interior Design Professional Relationship Specialty Start Date End Date Ashley Grigsby MD [address] [place] [address] PCP - General 08/17/21 Interior Design Professional Relationship Specialty Start Date End Date Ashley Grigsby MD [address] [place] [address] PCP - General 08/17/21 Anita Hammonds, erp business analystMarshmallow Runner 08/22/24 Interior Design Professional Relationship Specialty Start Date End Date Ashley Grigsby MD [address] [place] [address] PCP - General 02/22/17 Interior Design Professional Relationship Specialty Start Date End Date Ashley Grigsby MD [address] [place] [address] PCP - General 02/22/17 Interior Design Professional Relationship Specialty Start Date End Date Ashley Grigsby MD [address] [place] [address] PCP - General 02/22/17 Interior Design Professional Relationship Specialty Start Date End Date Ashley Grigsby MD [address] [place] [facility] [address] PCP - General Family Medicine 09/13/23 Interior Design Professional Relationship Specialty Start Date End Date Ashley Grigsby MD [address] [place] [facility] [address] PCP - General Family Medicine 09/13/23 Interior Design Professional Relationship Specialty Start Date End Date Ashley Grigsby MD [address] [place] [facility] [address] PCP - General Family Medicine 02/13/25 Interior Design Professional Relationship Specialty Start Date End Date Ashley Grigsby MD [address] [place] [facility] [address] PCP - General Family Medicine 02/13/25 Interior Design Professional Relationship Specialty Start Date End Date Ashley Grigsby MD [address] [place] [facility] [address] PCP - General Family Medicine 02/13/25 Interior Design Professional Relationship Specialty Start Date End Date Ashley Grigsby MD [address] [place] [facility] [address] PCP - General Family Medicine 02/13/25 Interior Design Professional Relationship Specialty Start Date End Date Ashley Grigsby MD [address] [place] [facility] [address] PCP - General Family Medicine 02/13/25 Interior Design Professional Relationship Specialty Start Date End Date Ashley Grigsby MD [address] [place] [facility] [address] PCP - General Family Medicine 02/13/25 REASON FOR VISIT (unrecogniz ed section and content) Specialty Diagnoses / Procedures Referred By Manfred flynn Referred To Contact Diagnoses Post-menopausal bleeding Inclusion cyst Post-menopausal bleeding [N95.0] Inclusion cyst [L72.0] Procedures LA HYSTEROSCOPY BX ENDOMETRIUM&/POLYPC W/WO D&C LA DESTRUCTION BENIGN LESIONS UP TO 14 DILATATION AND CURETTAGE HYSTEROSCOPY-REMOVAL OF INCLUSION CYST Gaby Phillips, DO [address] [place] [address] [facility] [address] [place] [address] Referral ID Status Reason Start Date Expiration Date Visits Re quested Visits Authorized [id number] 1 1 Reason Comments Annual Exam 1yr Specialty Diagnoses / Procedures Referred By Manfred flynn Referred To Contact Cardiology Diagnoses Atherosclerosis of coronary artery of little traverse heart without angina pectoris, unspecified vessel or lesion type History of coronary artery bypass graft Procedures Follow Up In Cardiology Celso Garibay, DO [address] [facility] 2, [address] [address] Phone: tel: fax: Celso Garibay, DO [address] [facility] 2, [facility] [address] [place] [address] Phone: tel: fax: Referral ID Status Reason Start Date Expiration Date V isits Requested Visits Authorized [id number] Authorized 08/14/2023 08/13/2024 1 1 Reason Comments Follow-up [facility] discharge 08/22 Reason Comments Med Refill Reason [...] BE BASED ON THE PRIMARY CLINICAL RECORDS. [facility] [employer] [facility]. provides no warranty or guarantee of the accuracy or completeness of information in this document.
--- OUTSIDE RECORDS SUMMARY | 2025-07-04 10:10 | XMS_ITS | Patient Health Record ---
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 Role Phone Deacon Dejesus Primary Care Provider [phone] Allergies Allergen (clinical drug ingredient) Drug/Non Drug [...] ctive Results Component Value Reference Range Notes CBC AUTO DIFF Reviewed date:08/05/2024 02:30:38 PM Interpretation: Performing Lab: Notes/Report: [facility] , White Blood Count 4.5 4.0-11.0 10 [...] Performing Lab: see note ML - [facility] LB CBC AUTO DIFF Reviewed date:10/01/2024 03:36:44 PM Interpretation: Performing Lab: Notes/Report: [facility] , White Blood Count 6.7 4.0-11.0 [...] 3/uL Performing Lab: see note ML - [facility] LB PTT Reviewed date:10/01/2024 03:36:44 PM Interpretation: Performing Lab: Notes/Report: [facility] , Partial Thromboplastin Time 30.2 22.3-36.2 sec Performing Lab: see note - [facility] UA RANDOM W or MICROSCOPIC Reviewed date:10/01/2024 03:36:44 PM Interpretation: Performing Lab: Notes/Report: [facility] , Color Urine LT. YELLOW YELLOW Clarity Urine CLEAR CLEAR Specific [place] Urine 1.010 1.005-1.025 pH Urine 7.0 5.0-9.0 [...] #/LPF Performing Lab: see note ML - [facility] Prothrombin Time INR Reviewed date:10/01/2024 03:36:44 PM Interpretation: Performing Lab: Notes/Report: [facility] , Prothrombin Time 10.8 9.0-11.6 sec INR 1.02 DESIRED INR: 2.0-3.0 CONDITIONS NOT LISTED BELOW 2.5-3.5 FOR PROSTHETIC HEART VALVE REPLACEMENT 2.5-3.5 RECURRENT THROMBOSIS Performing Lab: see note ML - [facility] ECG 12 lead Reviewed date:10/05/2024 08:20:23 PM Interpretation: Performing Lab: Notes/Report: Source Facility: [facility]-[address] [place] [address] [place] [address] Electrocardiograph Report Signed Patient: JOSE ALBERTO SALEEM MR#: [id number] : 1965 Acct:[id number] Age/Sex: 59 / F ADM Date: 09/30/24 Loc: [place] 215-[address]: Ashley Dejesus M.D. Ordering Physician: Cyrus Woodall M.D. 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 Signed By: 10/02/24 1630 DD/ 1738 TD/TT: Bank Manager: CBC AUTO DIFF Reviewed date:01/04/2025 03:44:31 PM Interpretation: Performing Lab: Notes/Report: [facility] , White Blood Count 5.0 4.0-11.0 10 [...] 10 3/uL Performing Lab: see note - [facility] LB AMMONIA Reviewed date:01/04/2025 03:44:31 PM Interpretation: Performing Lab: Notes/Report: [facility] , Ammonia 24 11-32 umol/L Performing Lab: see note [facility] LB AMYLASE Reviewed date:01/04/2025 03:44:31 PM Interpretation: Performing Lab: Notes/Report: [facility] , Amylase 136 25-115 U/L Performing Lab: see note - [facility] LB CBC AUTO DIFF Reviewed date:01/04/2025 03:44:31 PM Interpretation: Performing Lab: Notes/Report: [facility] , White Blood Count 5.0 4.0-11.0 10 [...] 3/uL Performing Lab: see note ML - [facility] LB LIPASE Reviewed date:01/04/2025 03:44:31 PM Interpretation: Performing Lab: Notes/Report: [facility] , Lipase 41.0 16.0-77.0 U/L Performing Lab: see note ML - [facility] LB LIPID PROFILE Reviewed date:01/04/2025 03:44:31 PM Interpretation: Performing Lab: Notes/Report: [facility] , Triglycerides 124 <=150 mg/dL Cholesterol 189 [...] RISK Performing Lab: see note ML - [facility] LB PROF 14(COMP METB) Reviewed date:01/04/2025 03:44:31 PM Interpretation: Performing Lab: Notes/Report: [facility] , Sodium 144 136-145 mmol/L Potassium 4.2 [...] Ratio 1.1 Performing Lab: see note - [facility] PTT Reviewed date:01/04/2025 03:44:31 PM Interpretation: Performing Lab: Notes/Report: [facility] , Partial Thromboplastin Time 31.4 22.3-36.2 sec Performing Lab: see note - [facility] Prothrombin Time INR Reviewed date:01/04/2025 03:44:31 PM Interpretation: Performing Lab: Notes/Report: [facility] , Prothrombin Time 10.9 9.0-11.6 sec INR 1.03 DESIRED INR: 2.0-3.0 CONDITIONS NOT LISTED BELOW 2.5-3.5 FOR PROSTHETIC HEART VALVE REPLACEMENT 2.5-3.5 RECURRENT THROMBOSIS Performing Lab: see note [facility] MAGNESIUM Reviewed date:05/06/2025 12:42:14 PM Interpretation: Performing Lab: Notes/Report: [facility] , Magnesium 2.2 1.8-2.4 mg/dL Performing Lab: see note - [facility] PHOSPHORUS Reviewed date:05/06/2025 12:42:14 PM Interpretation: Performing Lab: Notes/Report: [facility] , Phosphorus 3.7 2.6-4.7 mg/dL Performing Lab: see note [facility] Vitamin B12 Reviewed date:08/06/2024 09:18:02 PM Interpretation: Performing Lab: Notes/Report: [facility] , Vitamin B12 >2000 232-1245 pg/mL Performed at: [facility] [address] [id number] Earring Maker: Afshin Martinez PhD, Phone: [phone] Performing Lab: see note [facility] Vitamin B1 (Thiamine), Blood Reviewed date:08/09/2024 04:01:33 PM Interpretation: Performing Lab: Notes/Report: [facility] , Vitamin B1 (Thiamine), Blood 180.1 66.5-200.0 nmol/L This test was developed and its performance characteristics determined by [facility]. It has not been cleared or approved by the Food and Drug Administration. Performed at: [address] [id number] Earring Maker: Toni Guidry MD, Phone: [phone] Performing Lab: see note [facility] VITAMIN D 25 [place] Reviewed date:08/05/2024 06:07:34 PM Interpretation: Performing Lab: Notes/Report: [facility] , Vitamin D 69.2 <20 ng/mL Vit D deficient 20-<30 ng/mL Vit D insufficient 30-100 ng/mL Vit D sufficient >100 ng/mL Potential Toxicity Performing Lab: see note - [facility] LB PROF 14(COMP METB) Reviewed date:08/05/2024 03:01:27 PM Interpretation: Performing Lab: Notes/Report: [facility] , Sodium 139 136-145 mmol/L Potassium 3.9 [...] Performing Lab: see note ML - [facility] LB PHOSPHORUS Reviewed date:08/05/2024 03:01:27 PM Interpretation: Performing Lab: Notes/Report: [facility] , Phosphorus 3.8 2.6-4.7 mg/dL Performing Lab: see note ML - [facility] LB MAGNESIUM Reviewed date:08/05/2024 03:01:27 PM Interpretation: Performing Lab: Notes/Report: [facility] , Magnesium 2.1 1.8-2.4 mg/dL Performing Lab: see note ML - [facility] LB IRON AND TIBC Reviewed date:08/05/2024 06:07:34 PM Interpretation: Performing Lab: Notes/Report: [facility] , Iron 73.0 50.0-170.0 ug/dL Total Iron Binding Capacity 348.0 250.0-450.0 ug/dL Percent Iron Saturation 21.0 Performing Lab: see note ML - [facility] LB FOLATE Reviewed date:08/05/2024 06:07:34 PM Interpretation: Performing Lab: Notes/Report: [facility] , Folate 34.40 8.60-58.90 ng/mL Performing Lab: see note ML - [facility] LB FERRITIN Reviewed date:08/05/2024 06:07:34 PM Interpretation: Performing Lab: Notes/Report: [facility] , Ferritin 42.0 8.0-252.0 ng/mL Performing Lab: see note ML - [facility] LB AMYLASE Reviewed date:09/29/2024 08:35:22 PM Interpretation: Performing Lab: Notes/Report: [facility] , Amylase 295 25-115 U/L Performing Lab: see note ML - [facility] LB LIPASE Reviewed date:09/29/2024 08:35:22 PM Interpretation: Performing Lab: Notes/Report: [facility] , Lipase 737.0 16.0-77.0 U/L Performing Lab: see note ML - [facility] LB LIPID PROFILE Reviewed date:09/29/2024 08:35:22 PM Interpretation: Performing Lab: Notes/Report: [facility] , Triglycerides 205 <=150 mg/dL Cholesterol 232 [...] HIGH RISK Performing Lab: see note - [facility] LB PROF 14(COMP METB) Reviewed date:09/29/2024 08:35:22 PM Interpretation: Performing Lab: Notes/Report: [facility] , Sodium 143 136-145 mmol/L Potassium [...] 1.1 Performing Lab: see note ML - [facility] LB AMYLASE Reviewed date:10/01/2024 03:36:44 PM Interpretation: Performing Lab: Notes/Report: [facility] , Amylase 234 25-115 U/L Performing Lab: see note - [facility] LB LACTATE or LACTIC ACID Reviewed date:10/01/2024 03:36:44 PM Interpretation: Performing Lab: Notes/Report: [facility] , Lactate/Lactic Acid 1.0 0.4-2.0 mmol/L Performing Lab: see note ML - [facility] LB LIPASE Reviewed date:10/01/2024 03:36:44 PM Interpretation: Performing Lab: Notes/Report: [facility] , Lipase 163.0 16.0-77.0 U/L Performing Lab: see note ML - [facility] LB LIPID PROFILE Reviewed date:10/01/2024 03:36:44 PM Interpretation: Performing Lab: Notes/Report: [facility] , Triglycerides 95 <=150 mg/dL Cholesterol 219 [...] RISK Performing Lab: see note ML - [facility] LB LIVER PROFILE Reviewed date:10/01/2024 03:36:44 PM Interpretation: Performing Lab: Notes/Report: [facility] , Bilirubin Total 0.3 0.2-1.0 mg/dL Bilirubin Direct 0.1 0.0-0.2 mg/dL Aspartate Amino Transferase 29 15-37 U/L Alanine Aminotransferase 51 14-59 U/L Alkaline Phosphatase 114 46-116 U/L Total Protein 7.3 6.4-8.2 g/dL Albumin Level 3.8 3.4-5.0 g/dL Globulin 3.5 Albumin Globulin Ratio 1.1 Performing Lab: see note ML - [facility] LB MAGNESIUM Reviewed date:10/01/2024 03:36:44 PM Interpretation: Performing Lab: Notes/Report: [facility] , Magnesium 2.3 1.8-2.4 mg/dL Performing Lab: see note ML - [facility] LB PROF CHEM 8 (BAS METB) Reviewed date:10/01/2024 03:36:44 PM Interpretation: Performing Lab: Notes/Report: [facility] , Sodium 140 136-145 mmol/L Potassium 4.2 [...] mg/dL Performing Lab: see note ML - [facility] LB CT abdomen pelvis w con Reviewed date:10/01/2024 03:36:44 PM Interpretation: Performing Lab: Notes/Report: Source Facility: [facility]-[address] [place] [address] CT Scan Report Signed Patient: JOSE ALBERTO SALEEM MR#: [id number] : 1965 Acct:[id number] Age/Sex: 59 / F ADM Date: 09/30/24 Loc: ER Attending Dr: Ordering Physician: Cyrus Woodall M.D. Date of Service: 09/30/24 Procedure(s): CT abdomen pelvis w con Accession Number(s): [id number] cc: Ashley Dejesus M.D. [place] [address] Patient Name: JOSE ALBERTO SALEEM MRN: [id number] date: 1965 Sex: F Assigned Patient Location: ER Current Patient Location: ED.MAIN Accession/Order Number: [id number] Exam Date: 09/30/2024 18:06 Report Date: 09/30/2024 [...] M.D. Signed By: 09/30/241852 DD/ 49 TD/TT: Bank Manager: AMMONIA Reviewed date:10/01/2024 03:36:44 PM Interpretation: Performing Lab: Notes/Report: [facility] , Ammonia 26 11-32 umol/L Performing Lab: see note ML - [facility] LB CBC AUTO DIFF Reviewed date:10/01/2024 03:36:44 PM Interpretation: Performing Lab: Notes/Report: [facility] , White Blood Count 4.8 4.0-11.0 [...] 3/uL Performing Lab: see note ML - [facility] LB LIPASE Reviewed date:10/01/2024 03:36:44 PM Interpretation: Performing Lab: Notes/Report: [facility] , Lipase 57.0 16.0-77.0 U/L Performing Lab: see note - [facility] LB PROF 14(COMP METB) Reviewed date:10/01/2024 03:36:44 PM Interpretation: Performing Lab: Notes/Report: [facility] , Sodium 142 136-145 mmol/L Potassium 4.2 [...] Performing Lab: see note ML - [facility] LB Blood Culture 1 Reviewed date:10/06/2024 08:37:09 PM Interpretation: Performing Lab: Notes/Report: [facility] , Blood Culture 1 See Below For Report Blood Culture 1 NG5D NO GROWTH AT 5 DAYS. Performing Lab: see note ML - [facility] LB Blood Culture 2 Reviewed date:10/06/2024 08:37:09 PM Interpretation: Performing Lab: Notes/Report: [facility] , Blood Culture 2 See Below For Report Blood Culture 2 NG5D NO GROWTH AT 5 DAYS. Performing Lab: see note - [facility] LB LIPASE Reviewed date:10/01/2024 03:36:44 PM Interpretation: Performing Lab: Notes/Report: [facility] , Lipase 227.0 16.0-77.0 U/L Performing Lab: see note ML - [facility] LB CBC AUTO DIFF Reviewed date:10/05/2024 08:20:23 PM Interpretation: Performing Lab: Notes/Report: [facility] , White Blood Count 5.4 4.0-11.0 10 [...] 3/uL Performing Lab: see note ML - [facility] LB LIPASE Reviewed date:10/05/2024 08:20:23 PM Interpretation: Performing Lab: Notes/Report: [facility] , Lipase 168.0 16.0-77.0 U/L Performing Lab: see note - [facility] LB PROF 14(COMP METB) Reviewed date:10/05/2024 08:20:23 PM Interpretation: Performing Lab: Notes/Report: [facility] , Sodium 143 136-145 mmol/L Potassium 3.6 [...] Performing Lab: see note ML - [facility] US right upper quadrant Reviewed date:10/05/2024 08:20:23 PM Interpretation: Performing Lab: Notes/Report: Source Facility: [place] [address] [place] [address] Ultrasound Report Signed Patient: JOSE ALBERTO SALEEM MR#: [id number] : 1965 Acct:[id number] Age/Sex: 59 / F ADM Date: 09/30/24 Loc: [place] 215-[address]: Ashley Dejesus M.D. Ordering Physician: Ashley Dejesus M.D. Date of Service: 10/02/24 Procedure(s): US right upper quadrant Accession Number(s): [id number] cc: Ashley Dejesus M.D. [place] [address] Patient Name: JOSE ALBERTO SALEEM MRN: [id number] date: 1965 Sex: F Assigned Patient Location: [place] Current Patient Location: [place] Accession/Order Number: [id number] Exam Date: 10/02/2024 07:40 Report Date: 10/02/2024 [...] M.D. Signed By: 10/02/2443 DD/ 0 TD/TT: Bank Manager: LIPASE Reviewed date:10/05/2024 08:20:23 PM Interpretation: Performing Lab: Notes/Report: [facility] , Lipase 42.0 16.0-77.0 U/L Performing Lab: see note ML - [facility] LB PROF 14(COMP METB) Reviewed date:10/05/2024 08:20:23 PM Interpretation: Performing Lab: Notes/Report: [facility] , Sodium 141 136-145 mmol/L Potassium 3.6 [...] Performing Lab: see note ML - [facility] LB LIPASE Reviewed date:10/05/2024 08:20:23 PM Interpretation: Performing Lab: Notes/Report: [facility] , Lipase 75.0 16.0-77.0 U/L Performing Lab: see note ML - [facility] LB AMYLASE Reviewed date:01/04/2025 03:44:31 PM Interpretation: Performing Lab: Notes/Report: [facility] , Amylase 306 25-115 U/L RESULTS CALLED TO COLE SYKES LPN at 0929 Performing Lab: see note ML - [facility] LB LACTATE or LACTIC ACID Reviewed date:01/04/2025 03:44:31 PM Interpretation: Performing Lab: Notes/Report: [facility] , Lactate/Lactic Acid 0.9 0.4-2.0 mmol/L Performing Lab: see note ML - [facility] LB LIPASE Reviewed date:01/04/2025 03:44:31 PM Interpretation: Performing Lab: Notes/Report: [facility] , Lipase 234.0 16.0-77.0 U/L Performing Lab: see note ML - [facility] LB PROF 14(COMP METB) Reviewed date:01/04/2025 03:44:31 PM Interpretation: Performing Lab: Notes/Report: [facility] , Sodium 144 136-145 mmol/L Potassium 4.3 [...] Performing Lab: see note ML - [facility] LB Troponin I High Sensitivity Reviewed date:01/04/2025 03:44:31 PM Interpretation: Performing Lab: Notes/Report: [facility] , Troponin I High Sensitivity 6.1 4.0-51.3 pg/mL CUT-OFF POINTS HAVE BEEN ESTABLISHED BASED ON THE FOURTH UNIVERSAL DEFINITION OF MYOCARDIAL INFARCTION. THE UPPER REFERENCE LIMIT (URL) OF TROPONIN, DEFINED THE 99TH PERCENTILE OF cTnI DISTRIBUTION IN A REFERENCE POPULATION, HAS BEEN CONFIRMED THE DECISION THRESHOLD FOR NM DIAGNOSIS. 99TH PERCENTILE = 51.4 PG/ML NOTE: HIGH-SENSITIVITY TROPONIN ASSAY IS NOT INTENDED TO BE USED IN ISOLATION BUT SHOULD BE INTERPRETED IN CONJUNCTION WITH OTHER DIAGNOSTIC AND CLINICAL INFORMATION. Performing Lab: see note - [facility] LB UA Micro, reflex to culture Reviewed date:01/04/2025 03:44:31 PM Interpretation: Performing Lab: Notes/Report: [facility] , Color Urine LT. YELLOW YELLOW Clarity Urine CLEAR CLEAR Specific [place] Urine 1.010 1.005-1.025 pH Urine 7.5 5.0-9.0 [...] Performing Lab: see note ML - [facility] LB CBC AUTO DIFF Reviewed date:01/04/2025 03:44:31 PM Interpretation: Performing Lab: Notes/Report: [facility] , White Blood Count 6.5 4.0-11.0 10 [...] 3/uL Performing Lab: see note ML - [facility] LB PROF 14(COMP METB) Reviewed date:01/04/2025 03:44:31 PM Interpretation: Performing Lab: Notes/Report: [facility] , Sodium 141 136-145 mmol/L Potassium 4.3 [...] 1.1 Performing Lab: see note ML - [facility] LB LIPASE Reviewed date:01/04/2025 03:44:31 PM Interpretation: Performing Lab: Notes/Report: [facility] , Lipase 569.0 16.0-77.0 U/L Performing Lab: see note ML - [facility] LB AMYLASE Reviewed date:05/06/2025 12:42:14 PM Interpretation: Performing Lab: Notes/Report: [facility] , Amylase 117 25-115 U/L Performing Lab: see note ML - [facility] LB CBC AUTO DIFF Reviewed date:05/06/2025 12:42:14 PM Interpretation: Performing Lab: Notes/Report: [facility] , White Blood Count 5.6 4.0-11.0 10 3/uL Red Blood Count 5.11 4.20-5.40 10 6/uL Hemoglobin 15.1 12.0-16.0 g/dL Hematocrit 45.9 36.0-48.0 % Mean Corpuscular Volume 89.8 81.0-99.0 fL Mean Corpuscular Hemoglobin 29.5 26.7-34.0 pg Mean Corpuscular HGB Conc 32.9 29.9-35.2 g/dL Red Cell Distribution Width 12.7 11.0-15.0 % Platelet Count 218 150-450 10 3/uL Mean Platelet Volume 9.3 9.5-13.5 fL Neutrophils Percent Auto 53.7 43.0-75.0 % Lymphocytes Percent Auto 29.9 20.5-60.0 % Monocytes Percent Auto 10.9 1.7-12.0 % Eosinophils Percent Auto 4.8 0.9-7.0 % Basophils Percent Auto 0.5 0.2-2.0 % Immature Granulocytes Pct Auto 0.2 0.0-0.5 % Neutrophils Absolute Auto 3.0 1.4-6.5 10 3/uL Lymphocytes Absolute Auto 1.7 1.2-3.8 10 3/uL Monocytes Absolute Auto 0.6 0.3-0.8 10 3/uL Eosinophils Absolute Auto 0.3 0.0-0.7 10 3/uL Basophils Absolute Auto 0.0 0.0-0.1 10 3/uL Immature Granulocytes Abs Auto 0.01 0.00-0.03 10 3/uL Performing Lab: see note ML - [facility] LB FERRITIN Reviewed date:05/06/2025 12:42:14 PM Interpretation: Performing Lab: Notes/Report: [facility] , Ferritin 40.0 8.0-252.0 ng/mL Performing Lab: see note ML - [facility] LB FOLATE Reviewed date:05/06/2025 12:42:14 PM Interpretation: Performing Lab: Notes/Report: [facility] , Folate 48.70 8.60-58.90 ng/mL Performing Lab: see note ML - [facility] LB IRON AND TIBC Reviewed date:05/06/2025 12:42:14 PM Interpretation: Performing Lab: Notes/Report: [facility] , Iron 92.0 50.0-170.0 ug/dL Total Iron Binding Capacity 370.0 250.0-450.0 ug/dL Percent Iron Saturation 24.9 Performing Lab: see note ML - [facility] LB LIPASE Reviewed date:05/06/2025 12:42:14 PM Interpretation: Performing Lab: Notes/Report: [facility] , Lipase 50.0 16.0-77.0 U/L Performing Lab: see note ML - [facility] LB PROF 14(COMP METB) Reviewed date:05/06/2025 12:42:14 PM Interpretation: Performing Lab: Notes/Report: [facility] , Sodium 140 136-145 mmol/L Potassium 4.1 3.5-5.1 mmol/L Chloride 102 98-107 mmol/L Carbon Dioxide 34.4 21.0-32.0 mmol/L Anion Gap 7.7 Glucose 89 74-106 mg/dL Blood Urea Nitrogen 30.0 7.0-18.0 mg/dL Creatinine 0.61 0.55-1.02 mg/dL Estimated GFR ( [place] >60 >=60 mL/min/1.73m 2 Estimated GFR (Non- [place] >60 >=60 mL/min/1.73m 2 BUN Creatinine Ratio 49.2 Calcium 9.8 8.5-10.1 mg/dL Bilirubin Total 0.3 0.2-1.0 mg/dL Aspartate Amino Transferase 24 15-37 U/L Alanine Aminotransferase 38 14-59 U/L Alkaline Phosphatase 108 46-116 U/L Total Protein 7.3 6.4-8.2 g/dL Albumin Level 3.7 3.4-5.0 g/dL Globulin 3.6 Albumin Globulin Ratio 1.0 Performing Lab: see note ML - [facility] LB VITAMIN D 25 [place] Reviewed date:05/06/2025 12:42:14 PM Interpretation: Performing Lab: Notes/Report: [facility] , Vitamin D 60.9 <20 ng/mL Vit D deficient 20-<30 ng/mL Vit D insufficient 30-100 ng/mL Vit D sufficient >100 ng/mL Potential Toxicity Performing Lab: see note ML - [facility] LB Vitamin B1 (Thiamine), Blood Reviewed date:05/12/2025 08:16:07 PM Interpretation: Performing Lab: Notes/Report: [facility] , Vitamin B1 (Thiamine), Blood 203.9 66.5-200.0 nmol/L This test was developed and its performance characteristics determined by [facility]. It has not been cleared or approved by the Food and Drug Administration. Performed at: [address] [id number] Earring Maker: Toni Guidry MD, Phone: [phone] Performing Lab: see note [facility] Vitamin B12 Reviewed date:05/07/2025 10:15:53 PM Interpretation: Performing Lab: Notes/Report: [facility] , Vitamin B12 9163 169-5847 pg/mL Performed at: [address] [id number] Earring Maker: Afshin Martinez PhD, Phone: [phone] Performing Lab: see note [facility] Reason For Referral Diagnosis 1 Chronic pancreatitis (K86.1) Referral Organization [facility] Referring Provider First Name Deacon Referring Provider Last Name Anjelica Referring Provider Speciality [facility] wilfrid Referred Provider Chauncey Cooper Referred Provider Specialty Gastroentero logy Referral Priority Routine Medications Medication SIG (Take, Route, Frequency, Duration) Notes Start Date End Date Status Nystatin 561430 UNIT/GM 1 application Externally Twice a day; Duration: 30 days 11/12/2023 Active Pancrelipase (Vvc-Zvfs-Soer) 01443-210[address] UNIT 1 capsule Orally ac and hs 09/25/2024 Active Cefdinir 300 MG 2 capsule Orally onc e a day; Duration: 10 days 02/18/2025 Active Nitroglycerin 0.[address] 1 tablet unde r the tongue if needed every 5 minutes for nimco... (REFER TO PRESCRIPTION NOTES). Sublingual; Duration: 30 Days Active hydroCHLOROthiazide 12.5 MG Oral; Durati on: 90 Days Active Estradiol Active Mometasone Furoate 0.1 % 1 application Externally BID; Duration: 30 days Thin application to area of rash 05/15/2025 Active Citalopram Hydrobromide 40 MG 1 tablet O rally Once a day; Duration: 30 days Active Tamsulosin HCl 0.4 MG 1 capsule Orally B ID; Duration: 90 days Active Cevimeline HCl 30 MG 1 capsule Orally qi d; Duration: 90 days 02/12/2024 Active hydroCHLOROthiazide 25 MG TAKE 1 TABLET BY MOUTH EVERY MORNING; Duration: 30 Active Clopidogrel Bisulfate 75 MG 1 tablet Ora lly Once a day 08/27/2024 Active traMADol HCl 50 MG 1 tablet as needed Orally 4 times a day; Duration: 7 days 01/24/2024 Active Aspirin Low Dose 81 MG Oral; Duration: 9 0 Days Active PreserVision AREDS A ctive RABEprazole Sodium 20 MG TAKE 1 TABLET T WICE A DAY; Duration: 90 days Active Hyoscyamine Sulfate 0.125 MG 2 tablet as needed Orally every 4 hrs PRN abd pain 04/28/2024 Active Diclofenac Sodium 3 % 1 application Externally Twice a day; Duration: 30 days 05/15/2025 Active Qxdtggjh-Ncrjxhsxw-Kvellkhy 3.5-38821-2.1 1 drop into affected eye Ophthalmic Four times a day; Duration: 7 days 04/16/2025 Active Fluticasone Propionate 50 MCG/ACT INSTILL 1 SPRAY IN EACH NOSTIRL TWICE A DAY.; Duration: 90 days Active Immunizations Vaccine Route Administration Date Status Comme nts Flu, -historic- Novel H1N1-0 9, preservative free Unknown 07/29/2009 Administered Flu, Flucelvax (11053) 2 yrs +, single-dose syringe (2970-6617) Unknown 07/26/2017 Administered Flu, Fluzone (95544) 6 mos+, single-dose syringe/vial (9928-0921) Unknown 06/05/2023 Administered Flu, Unspecified Unknown 06/15/2014 [...] Problem Status W/U Status Risk Notes Problem Benign neoplasm of soft tissue (98913928) Benign neoplasm of connective and other soft tissue, 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 Problem Snoring (49483073) Snoring (R06.83) Active conf irmed Problem Right upper quadrant pain (045394918) Right upper quadrant pain (R10.11) Active confirmed Problem Abdominal pain (70355143) Abdominal pain (R10.9) Active confirmed Problem Fatigue (70204440) Fatigue (R53.83) Active conf irmed Problem Hyperlipidemia (69329751) Hyperlipidemia (E78.5) Active confirmed Problem Hyperlipidaemia (20454698) Hyperlipemia (E78.5) Active confirmed Problem Hypertension (41063615) Hypertension (I10) Active confirmed Problem Gastroesophageal reflux disease (781836266) GERD (gastroesophageal reflux disease) (K21.9) Active confirmed Problem Coronary artery disease (11531575) CAD (coronary artery disease) (I25.10) Active confirmed Problem Ischemic cardiomyopathy (834730588) Cardiomyopathy, ischemic (I25.5) Active confirmed Problem Depression (605741395) Depression (F32.9) Active confirmed Problem Essential hypertension (64564293) Benign essential HTN (I10) Active confirmed Problem Hypertriglyceridemia (287149543) Hypertriglyceridemia (E78.1) Active confirmed Problem Arthralgia (20477348) Arthralgia (M25.50) Active confirmed Problem Chronic pancreatitis (459259997) Chronic pancreatitis (K86.1) Active confirmed Problem Essential hypertension (67701259) BP (high blood pressure) (I10) Active confirmed Problem hypercholesterolemia (disorder) (96730549) Hypercholesteremia (E78.00) Active confirmed Problem Hypercholesterolemia (85862401) Hypercholesterolemia (E78.00) Active confirmed Problem Type II diabetes mellitus without complication (601891795) Controlled type 2 diabetes mellitus (E11.9) Active confirmed Problem Acute UTI (urinary tract infection) (541559874) Acute UTI (urinary tract infection) (N39.0) Active confirmed Problem Old myocardial infarction (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) Acute myocardial infarct greater than 3 months ago (I25.2) Active confirmed Problem Acute pancreatitis (025683219) Acute pancreatitis (K85.90) Active confirmed Vital Signs Temperature 97.6 degrees Fahrenheit 02/18/2025 Blood pressure diastolic 82 mm Hg 02/18/2025 Height 63 in 02/18/2025 Blood pressure systolic 140 mm Hg 02/18/2025 Weight 179 lbs 02/18/2025 BMI 31.7 kg/m2 02/18/2025 Procedures Procedure Date Ordered Date Performed Result Body Sit e Sleep study - Diagnostic Polysonogram 01/08/2025 N/A Encounters Encounter Location Date Provider Diagnosis [address] [address] 08/27/2024 Deacon Hoy CAD (coronary artery disease) I25.10 ; Hypertriglyceridemia E78.1 and Hypertension I10 [address] [address] 10/07/2024 Deacon Hoy Chronic pancreatitis K86.[address] [address] 01/08/2025 Deacon Hoy Fatigue R53.83 ; Sno ring R06.83 and Chronic pancreatitis K86.[address] [address] 02/18/2025 Deacon Hoy Acute bronchitis, un specified organism J20.[address] [place] [address] 08/05/2024 Deacon Gordilloy [facility] [address] [place] [address] 08/20/2024 Deacon Hoy [facility] [address] [place] [address] 09/25/2024 Deacon Gordilloy [facility] [address] [place] [address] 09/29/2024 Deacon Dejesus [facility] [address] [place] [address] 10/03/2024 Deacon Gordilloestefani [facility] [address] [place] [address] 10/07/2024 Deacon Hoy Chronic pancreatitis K86.1 [facility] [address] [place] [address] 11/10/2024 Deacon Gordilloestefani [facility] [address] [place] [address] 11/27/2024 Deacon Hoy Acute pancreatitis K 85.90 [facility] [address] [place] [address] 01/02/2025 Deacon Gordilloy [facility] [address] [place] [address] 02/09/2025 Deacon Gordilloestefani [facility] [address] [place] [address] 03/05/2025 Deaocn Hoy Chronic pancreatitis K86.1 [facility] [address] [place] [address] 03/05/2025 Deacon Hoy Chronic pancreatitis K86.1 [facility] [address] [place] [address] 04/16/2025 Deacon Duyy [facility] [address] [place] [address] 05/06/2025 Deacon Hoy Fatigue R53.83 [facility] [address] [place] [address] 05/06/2025 Deacon Dejesus [facility] [address] [facility] [place] [address] 05/15/2025 Deacon Dejesus [facility] [address] [facility] [place] [address] 05/15/2025 Deacon Dejesus [facility] [address] [facility] [place] [address] 05/18/2025 Deacon Dejesus [facility] [address] [facility] [place] [address] 06/11/2025 Deacon Dejesus Assessments Encounter Date Diagnosis (ICD Code) Assessment [...] vaporizer to help keep the drainage moist. Tkar-tja-jgtnzij Nasal Saline may help the stuffy and runny nose. Use Ibuprofen and or Tylenol as needed for fever, chills, body aches or pain. Children 5 years old should not be given pspy-bjq-ngrifez cough and cold medications such as guaifenesin and dextromethorphan. If you're over age 5, you may try sqew-jcp-plhfiuf cold medications such as guaifenesin and dextromethorphan, [...] to the emergency room or call 911 10/07/2024 Chronic pancreatitis (ICD-10 - K86.1) 11/27/2024 Acute pancreatitis (ICD-10 - K85.90) 03/05/2025 Chronic pancreatitis (ICD-10 - K86.1) 03/05/2025 Chronic pancreatitis (ICD-10 - K86.1) 05/06/2025 Fatigue (ICD-10 - R53.83) 01/08/2025 Chronic pancreatitis (ICD-10 - K86.1) 08/27/2024 Hypertension (ICD-10 - I10) Plan Of Treatment Pending Test Test Name Order Date CMP (COMPLETE METABOLIC PANEL) CMP (COMPLETE METABOLIC PANEL) HEMOGLOBIN A1C (GLYCO) 11/12/2023 IRON, TOTAL 11/12/2023 [...] PANEL (T4/TSH/FREE T3) US abdomen complete 01/24/2024 Next Appt Details Provider Name:Deacon Dejesus, 05:00:00 PM, [address] [facility], [place], [address], Insurance Providers Payer Name Payer Address Payer Phone Subscriber Number Group Number Insured Name Patient Relationship to Insured Coverage Start Date Coverage End Date [employer] ACC[employer] PPO PLUS LOCAL PLAN [address] [place] [phone] [id number] Angelika Jose Alberto Self - patient is the insured 3 [...] Hypertension I10 CAD (coronary artery disease) I25.10 tendonitis of right wrist Surgical History Surgery Date(Month/Year) endoscope 03/06/24 Cardiac [...]
--- OUTSIDE RECORDS SUMMARY | 2025-07-04 10:10 | XMS_ITS | Encounter Summary ---
Author Organization [facility] Healthcare Address [address] [place] [address] Care Team Providers Care Superior Court Clerk Name Role Phone Ziggy Dejesus MD Primary Care Provider [phone] Encounter Details Date Type Department Care Team [...] Info) Description 07/14/2025 5:00 PM EDT Evaluation [facility] [address] [place] [address] Kayode Francois, PT [address] [place], [place] [id number] 08/04/2025 10:45 AM EST Office Visit [facility] [address] [place] [address] Jr. Torsten Sinha, DO [address] [facility] [address] [place] [address] documented as of this encounter Visit Diagnoses Not on filedocumented in this encounter Care Teams Superior Court Clerk Relationship Specialty Start Date End Date Ziggy Dejesus MD [address] [place] [address] PCP - General Family Medicine 02/13/25 documented as of this encounter
--- OUTSIDE RECORDS SUMMARY | 2025-07-04 10:10 | XMS_ITS | Clinical Summary ---
Author Organization [facility] Address [address] [facility], [address] [place] [address] Care Team Providers Care Botany Professor Name Role Phone Ziggy Dejesus MD Primary Care Provider [phone] Allergies Active Allergy Reactions Criticality Noted Date [...] Description 11/03/2025 4:15 PM EST Office Visit [facility]YNECOLOGY Part of [address] [place], [place] [id number] Gaby Murry, DO [address] [address] [place] [address] Annual Health Maintenance Due Date [...] HIGH RISK Routine 02/07/2022 8:18 AM EDT [facility] CYTOLOGY Routine 02/07/2022 8:18 AM EDT HM MAMMOGRAPHY Routine 07/28/2021 from Last 3 Months or Most Recently Relevant to Health Maintenance Results * Human papillomavirus (HPV) DNA probe thin prep high risk (02/07/2022 8:18 AM EDT) Specimen Description .GENITAL - NOT SPECIFIED 02/07/2022 8:18 AM EDT [facility] HPV Sample .THIN PREP 02/07/2022 8:18 AM EDT [facility] HPV, Genotype 16 Not Detected Not Detected 02/07/2022 8:18 AM EDT [facility] HPV, Genotype 18 Not Detected Not Detected 02/07/2022 8:18 AM EDT [facility] HPV, High Risk Other Not Detected Not Detected 02/07/2022 8:18 AM EDT [facility] HPV, Interpretation 02/07/2022 8:18 AM EDT [facility] Comment: This test amplifies and detects DNA [...] Gaby Murry DO HEMATOLOGY ORDERABLES Final Result [facility] [address] [place] [address], [facility] [phone] [facility] [address] [place] [address], [facility] [phone] * [facility] Cytology (02/07/2022 8:18 AM EDT) Cytology Report INTERPRETATION Cervical material, (ThinPrep vial, Imaging-assisted review): Specimen Adequacy: Satisfactory for evaluation. -Endocervical/tra nsformation zone component is absent. Descriptive Diagnosis: Negative for intraepithelial lesion or malignancy. 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 [facility] Rec: [id number] Path Number: [id number] [facility] CONSULTING PATHOLOGISTS [facility] ANATOMIC PATHOLOGY [address] [place] [address] [facility] C[facility] 02/07/2022 8:18 AM EDT 02/08/2022 8:18 AM EDT Gaby Murry DO PATHOLOGY/CYTOLOGY OR DERABLES Final Result Performing Organization Address City/State/RUST Co de Phone Number [facility] [address] [place] [address], [facility] [phone] [address], [facility] [phone] * MAMMOGRAPHY (07/28/2021) Anatomical Region Laterality Modality Other Gaby Murry DO HEALTH MAINTENANCE Fi nal Result from Last 3 Months or Most Recently Relevant to Health Maintenance Insurance BCBS OUT OF STATE Advance Directives * Full Code (Latest Code Status on File) Date Activated Date Inactivated Comments 06/18/2023 1:21 PM 06/18/2023 5:57 PM Care Teams Botany Professor Relationship Specialty Start Date End Date Ziggy Dejesus MD [address] [place] [address] PCP - General Family Medicine 08/19/19
--- OUTSIDE RECORDS SUMMARY | 2025-07-04 10:10 | XMS_ITS | Clinical Summary ---
Author Organization [facility] Address [address] [place] [address] Care Team Providers Care Sales And Management Trainee Name Role Phone Ziggy Dejesus MD Primary Care Provider [phone] Allergies Active Allergy Reactions Criticality Noted Date [...] of 2) 2014 Covid-19 Vaccine (1 - 2024-2 6 season) 2025 Influenza Vaccine (#1) 2025 RSV Vaccine (1 [...] EDT) Triglyceride 1338(H) 30 - 149 mg/dL [facility] Comment: Patient may be at risk for acute pancreatitis due to marked hypertriglyceridemia. Cholesterol, Total 296(H) 100 - 199 mg/dL [facility] HDL Cholesterol 25(L) >55 mg/dL [facility] VLDL Cholesterol Unable to calculate due to increased Triglycerides . See LDL-Chol, Direct. 6 - 40 mg/dL [facility] LDL Cholesterol, Calculated Unable to calculate due to increased Triglycerides . See LDL-Chol, Direct. 60 - 129 mg/dL [facility] Fasting Time 13 hrs [facility] TC:HDL Ratio 11.84(H) 1.00 - 5.00 [facility] LDL:HDL Ratio Unable to calculate 0.50 - 3.55 [facility] Non HDL Cholesterol 271(H) 90 - 159 mg/dL [facility] Blood specimen (specimen) BLOOD SPECIMEN / Unknown 03/22/2009 12:34 PM EDT us Lupe Park MD LABORATORY Final Resul t [facility] [address] [place] [address] * HGB A1C (03/22/2009 12:34 PM EDT) Hemoglobin A1C 5.6 4.0 - 6.0 % [facility] Blood specimen (specimen) BLOOD SPECIMEN / Unknown 03/22/2009 12:34 PM EDT us Lupe Park MD LABORATORY Final Resul t [facility] [address] [place] [address] from Last 3 Months or Most Recently Relevant to Health Maintenance Insurance [employer] Care Teams Sales And Management Trainee Relationship Specialty Start Date End Date Ziggy Dejesus MD [address] [place] [address] PCP - General 03/15/06
--- OUTSIDE RECORDS SUMMARY | 2025-07-04 10:11 | XMS_ITS | Clinical Summary ---
Author Organization [facility] Address [address] [place] [address] Care Team Providers Care Speech Language Pathologist Name Role Phone Ziggy Dejesus MD Primary Care Provider [phone] Allergies Active Allergy Reactions Criticality Noted Date [...] A DAY. for 90 Active HYDROcodone-acetam inophen ([place]) 5-325 mg tablet 5 Active hyoscyamine (Anaspaz,Levsin) 0.125 mg tablet 2 tablet as needed Orally every 4 hrs PRN abd pain 4 Active ondansetron ODT (Zofran-ODT) 4 mg disintegrating tablet 5 Active hydroCHLOROthiazid e (HYDRODiuril) 25 mg tablet 5 Active pancrelipase, Xqm-Mwbe-Vomm, (Creon) 12,000-38,000 -60,000 unit capsuleIndications :Pancreatic insufficiency 1 capsule before snack. 90 capsule 5 Active pancrelipase, Sjq-Pweb-Zezt, (Creon) 36,000-114,000- 180,000 unit capsule,delayed release(DR/EC) capsuleIndications [...] Xerostomia 02/26/2024 Atherosclerosis of coronary artery of [place] heart without angina pectoris 08/09/2023 Essential hypertension, [...] Type Department Care Team Description 05/19/2025 Telephone [facility] Endoscopy [address] [place] [address] Gisela Arellano, LUCIEN 05/19/2025 Orders Only [facility] [address] [place] [address] [place] [phone] Roberto Watson MD Pancreatic insufficiency 05/14/2025 Telephone [facility] Gastroenterology [address] [place] [address] Nicole Locke MA 05/14/2025 Refill [facility] [address] [place] [address] Nicole Locke MA 05/14/2025 Telephone [facility] [address] [place] [address] [place] [phone] Roberto Watson MD 05/14/2025 Telephone [facility] [place] [facility] [address] [place] [address] [place] [address] Gisela Arellano RN 05/08/2025 10:30 AM EDT Follow-Up [facility] [address] [place] [address] Chauncey Cooper MD Pancreatic insufficiency (Primary Dx); Sphincter of Oddi dysfunction from Last 3 Months Immunizations Immunization Administration Dates Next Due Influenza, High Dose Seasona l, Preservative Free 2022 Influenza, Unspecified 06/30/2021 Influenza, injectable, MDCK, preservative free, quadrivalent 06/03/2021,07/26/2017 Influenza, injectable, quadr ivalent, preservative free 06/05/2023,06/16/2022,2020,07/23 Influenza, seasonal, injectable 06/15/2014 Influenza, seasonal, injecta ble, preservative free, 6 moonths & older 06/05/2024,07/03/2015 Novel [id number], preservative-free 07/29/2009 Pfizer SARS-CoV-2 Vaccination 01/08/2021 Pneumococcal Polysaccharide PPV23 05/09/2017 Zoster, Recombinant 08/21/2022,06/16/2022 Family History Medical History Relation Name Comments Hyperlipidemia Brother 1 [place] Heart attack Brother 2 Ray Hyperlipidemia Father Munoz Hyperlipidemia Mother Katharlatonia Relation Name Status Comments Brother 1 [place] Brother 2 Ray Father Munoz Mother Katharyn [...] - 6.0 % 02/27/2024 2:02 PM EDT [facility] Estimated Average Glucose 100 mg/dL 02/27/2024 2:02 PM EDT [facility] Blood Venous blood specimen / Unknown Venipuncture / Unknown 02/27/2024 12:18 PM EDT 02/27/2024 12:18 PM EDT us Danielle Magallon MD LAB BLOOD ORDERABLES Final Res ult [facility] [place]) [address] [place], [place] [id number] from Last 3 Months or Most Recently Relevant to Health Maintenance Insurance [facility] Care Teams Speech Language Pathologist Relationship Specialty Start Date End Date Ziggy Dejesus MD [address] [facility] [place] [address] PCP - General 02/18/24
--- OUTSIDE RECORDS SUMMARY | 2025-07-04 10:11 | XMS_ITS | Encounter Summary ---
Author Organization [facility] Address [id number] [address] [place] [address] Care Team Providers Care Tech Ed/Woodshop Teacher Name Role Phone Ziggy Dejesus MD Primary Care Provider [phone] Reason for Visit * Reason Onset Date Comments Med Refill 09/26/2017 Encounter Details Date Type Department Care Team (Late st Contact Info) Description 09/26/2017 Refill [facility] [address] [place] [address] [place] [phone] Alisia Bazzi RMA Social History Tobacco Use [...] on filedocumented in this encounter Care Teams Tech Ed/Woodshop Teacher Relationship Specialty Start Date End Date Ziggy Dejesus MD PCP - General 02/22/17 documented as of this encounter
--- OUTSIDE RECORDS SUMMARY | 2025-07-04 10:11 | XMS_ITS | Clinical Summary ---
Author Organization [facility] Address [address] [place] [address] Care Team Providers Care Carbider Name Role Phone Unavailable Primary Care Provider Unavailabl e Encounters Date Type Department Care Team Description 06/18/2025 Telephone [facility] [address] [place], [place] [phone] Mirian Pitts Outside Medical Records Request from [...] PM EDT Office Visit [facility] [place] Yael [address] [place] [address] Ramiro Britton MD [address] [facility] [place] [address] Health Maintenance Due Date Last Done [...] patient's age to complete this topic Insurance [facility] PPO POS
--- OUTSIDE RECORDS SUMMARY | 2025-07-04 10:11 | XMS_ITS | Encounter Summary ---
Author Organization [facility] Address [address] [place] [address] Phone Care Team Providers Care Sheet Folder Name Role Phone Ziggy Dejesus MD Primary Care Provider [phone] Anita Hammonds RN Unavailable Unavailable Encounter Details Date Type Department Care Team (Late st Contact Info) Description 08/18/2024 Scanned Document [facility] [address] [place] [address] Scanning, Generic Provider Social History [...] Description 08/18/2025 11:20 AM EST Office [facility] [address] [facility] [address] [place] [address] Celso Garibay DO [address] [facility] [address] [place] [address] documented as of this encounter Procedures Procedure Name Priority Date/Time Associated Diagnosis Comments OUTSIDE IMAGING SCAN 08/18/2024 documented in this encounter Results * OUTSIDE IMAGING SCAN (08/18/2024) Anatomical Region Laterality Modality Other Narrative 08/18/2024 Ordered by an unspecified provider. us Generic Provider Scanning OUTSIDE SCAN Final Result documented in this encounter Visit Diagnoses Not on filedocumented in this encounter Care Teams Sheet Folder Relationship Specialty Start Date End Date Ziggy Dejesus MD [address] [place] [address] PCP - General 08/17/21 Anita Hammonds, molecular physicistDining Car Hop 08/22/24 10/03/24 documented as of this encounter
--- OUTSIDE RECORDS SUMMARY | 2025-07-04 10:11 | XMS_ITS | Encounter Summary ---
Author Organization [employer] Address [facility] [place] [id number] [address] [place] [address] Care Team Providers Care Manager Discovery Name Role Phone Ziggy Dejesus MD Primary Care Provider [phone] Encounter Details Date Type Department Care Team (Late st Contact Info) Description 08/17/2022 Orders Only [facility] [address] [place] [phone] Antonia Banda, PA-C [address] [facility] [address] [place] [address] Social History Tobacco Use Types Packs/Day Years [...] as of this encounter Care Teams Manager Discovery Relationship Specialty Start Date End Date Ziggy Dejesus MD PCP - General 02/22/17 documented as of this encounter
--- OUTSIDE RECORDS SUMMARY | 2025-07-04 10:11 | XMS_ITS | Encounter Summary ---
Author Organization [facility] Address [address] [place] [address] Phone Care Team Providers Care Manager Photography Name Role Phone Ziggy Dejesus MD Primary Care Provider [phone] Anita Hammonds RN Unavailable Unavailable Encounter Details Date Type Department Care Team (Late st Contact Info) Description 08/21/2024 Scanned Document [facility] [address] [place] [address] Scanning, Generic Provider Social History [...] Description 08/18/2025 11:20 AM EST Office Visit [facility] [address] [facility] [address] [place] [address] Celso Garibay DO [address] [facility] [address] [place] [address] documented as of this encounter Visit Diagnoses Not on filedocumented in this encounter Care Teams Manager Photography Relationship Specialty Start Date End Date Ziggy Dejesus MD [address] [place] [address] PCP - General 08/17/21 Anita Hammonds, senior foremanNight Filler 08/22/24 10/03/24 documented as of this encounter
--- OUTSIDE RECORDS SUMMARY | 2025-07-04 10:11 | XMS_ITS | Encounter Summary ---
Author Organization [facility] Address [address] [place] [address] Phone Care Team Providers Care Bead Maker Name Role Phone Ziggy Dejesus MD Primary Care Provider [phone] Anita Hammonds RN Unavailable Unavailable Encounter Details Date Type Department Care Team (Late st Contact Info) Description 10/09/2022 Orders Only [facility] [address] [place] [address] Conversion, Onbase Social History Tobacco Use Types [...] Description 08/18/2025 11:20 AM EST Office Visit [facility] [address] [facility] [address] [place] [address] Celso Garibay DO 703 [facility] 2, [address] [place] [address] Scheduled Orders Name Type Priority Associated Diagnoses Orde r Schedule OUTSIDE LAB SCAN Lab Ordered: 10/09/2022 documented as of this encounter Visit Diagnoses Not on filedocumented in this encounter Care Teams Bead Maker Relationship Specialty Start Date End Date Ziggy Dejesus MD [address] [place] [address] PCP - General 08/17/21 Anita Hammonds, physician specialistConsulting Solution Manager 08/22/24 10/03/24 documented as of this encounter
--- OUTSIDE RECORDS SUMMARY | 2025-07-04 10:11 | XMS_ITS | Encounter Summary ---
Author Organization [facility] Address [address] [place] [address] Phone Care Team Providers Care Business Rules Developer Name Role Phone Ziggy Dejesus MD Primary Care Provider [phone] Cindy Stoll SECONDARY ART TEACHER-CONSOLIDATION ACCOUNTANT Unavailable [phone] Anita Hammonds RN Unavailable Unavailable Encounter Details Date Type Department Care Team (Late st Contact Info) Description 09/28/2021 Orders Only [facility] [address] [place] [address] Conversion, Onbase Social History Tobacco Use Types [...] Description 08/18/2025 11:20 AM EST Office Visit [facility] 703 [facility] [address] [place] [address] Celso Garibay DO 703 [facility] 2, [address] [place] [address] Scheduled Orders Name Type Priority Associated Diagnoses Orde r Schedule OUTSIDE LAB SCAN Lab Ordered: 09/28/2021 documented as of this encounter Visit Diagnoses Not on filedocumented in this encounter Care Teams Business Rules Developer Relationship Specialty Start Date End Date Ziggy Dejesus MD [address] [place] [address] PCP - General 08/17/21 Cindy Stoll, SECONDARY ART TEACHER-CONSOLIDATION ACCOUNTANT 703 [facility] 2, [facility] [address] [place] [address] PCP - Karen LANEO PCP 01/29/22 06/30/22 Anita Hammonds, south asian history professorCotton Breeder 08/22/24 10/03/24 documented as of this encounter
--- OUTSIDE RECORDS SUMMARY | 2025-07-04 10:11 | XMS_ITS | Encounter Summary ---
[facility] Address [id number] [address] [place] [address] Care Team Providers Care Middleware Administrator Name Role Phone Ziggy Dejesus MD Primary Care Provider [phone] Reason for Visit * Reason Comments Med Refill Encounter Details Date Type Department Care Team (Late st Contact Info) Description 01/10/2018 Refill [facility] [address] [place] [address] [place] [place] [address] Antonia Banda, PA-C [address] [facility] [address] [place] [address] S/P nasal septoplasty Social History Tobacco Use [...] status documented in this encounter Care Teams Middleware Administrator Relationship Specialty Start Date End Date Ziggy Dejesus MD PCP - General 02/22/17 documented as of this encounter
--- OUTSIDE RECORDS SUMMARY | 2025-07-04 10:11 | XMS_ITS | Encounter Summary ---
Author Organization [facility] Address [address] [place] [address] Care Team Providers Care Ammonia Technician Name Role Phone Ziggy Dejesus MD Primary Care Provider [phone] Reason for Visit * Reason Onset Date Comments Med Refill 05/14/2025 Encounter Details Date Type Department Care Team (Late st Contact Info) Description 05/14/2025 Refill [facility] at [address] [address] Nicole Locke MA Social History [...] on filedocumented in this encounter Care Teams Ammonia Technician Relationship Specialty Start Date End Date Ziggy Dejesus MD [address] [facility] [place] [address] PCP - General 02/18/24 documented as of this encounter
--- OUTSIDE RECORDS SUMMARY | 2025-07-04 10:11 | XMS_ITS | Encounter Summary ---
Author Organization [employer] Address [id number] [address] [place] [address] Care Team Providers Care Editor City Name Role Phone Ziggy Dejesus MD Primary Care Provider [phone] Encounter Details Date Type Department Care Team (Late st Contact Info) Description 06/28/2022 Telephone [facility] [address] [place] [phone] Jennifer Peng RMA Social History Tobacco Use [...] documented as of this encounter Care Teams Editor City Relationship Specialty Start Date End Date Ziggy Dejesus MD PCP - General 02/22/17 documented as of this encounter
--- OUTSIDE RECORDS SUMMARY | 2025-07-04 10:11 | XMS_ITS | Clinical Summary ---
Author Organization [facility] Address [address] [place] [address] Phone Care Team Providers Care Switchman Name Role Phone Ziggy Dejesus MD Primary Care Provider [phone] Allergies Active Allergy Reactions Criticality Noted Date [...] SL tabletIndications :Atherosclerosis of coronary artery of [place] heart without angina pectoris, unspecified vessel or [...] :Atherosclerosis of coronary artery bypass graft of [place] heart without angina pectoris,S/P PTCA (percutaneous transluminal [...] :Atherosclerosis of coronary artery bypass graft of [place] heart without angina pectoris TAKE 1 TABLET BY MOUTH DAILY 90 tablet 3 5 Active Active Problems Problem Noted Date Diagnosed Date Statin intolerance 09/05/2024 BMI 30.0-30.9,adult 09/05/2024 S/P PTCA (percutaneous transluminal coronary ang ioplasty) 09/05/2024 Pancreatitis ([facility]) 08/13/2024 Atherosclerosis of coronary artery of [place] heart without angina pectoris 08/09/2023 Essential hypertension [...] Description 08/18/2025 11:20 AM EST Office Visit [facility] 703 [facility] [address] [place] [address] Celso Garibay, 703 [facility] 2, [address] [place] [address] Health Maintenance Due Date Last Done Comments [...] age to complete this topic Insurance [facility] Care Teams Switchman Relationship Specialty Start Date End Date Ziggy Dejesus MD [address] [place] [address] PCP - General 08/17/21
--- OUTSIDE RECORDS SUMMARY | 2025-07-04 10:11 | XMS_ITS | Clinical Summary ---
Author Organization [facility] Address [address] [place] [address] Care Team Providers Care Obstetrician And Gynaecologist Name Role Phone Ziggy Dejesus MD Primary Care Provider [phone] Allergies Active Allergy Reactions Criticality Noted Date [...] Description 06/23/2025 10:15 AM EDT Office Visit [facility] [address] [place] [address] Jr. Torsten Sinha, DO Tendonitis of wrist, right; Right wrist pain 06/23/2025 Bamboo flowsheet [facility] [place] [address] Jr. Torsten Sinha, DO 06/23/2025 Travel 06/16/2025 9:15 AM EDT Ancillary Procedure [facility] [address] [facility] [address] [place] [address] Chronic pain of right wrist 06/16/2025 Travel 06/15/2025 Travel 06/02/2025 10:15 AM EDT Office Visit [facility] [place] [address] Jr. Torsten Sinha, Chronic pain of right wrist 06/02/2025 Bamboo flowsheet [facility] [place] [address] Jr. Torsten Sinha, DO 06/02/2025 Travel 05/27/2025 3:15 PM EDT Procedure Visit [facility] [address] [facility] [address] [place] [address] Corbin Louie MD Numbness (Primary Dx); Paresthesias; Carpal tunnel syndrome, left 05/27/2025 Travel 05/15/2025 11:55 AM EDT Ancillary Procedure [facility] [place] [address] 05/15/2025 11:30 AM EDT Office Visit [facility] [address] [place] [address] Arik Byrd PA Right wrist pain (Primary Dx); Arm weakness; Numbness; Arm pain, right; Ulnar neuropathy of right upper extremity 05/15/2025 Bamboo flowsheet [facility] [address] [place] [address] Arik Byrd PA 05/15/2025 Travel from Last [...] Info) Description 07/14/2025 5:00 PM EDT Evaluation [facility] [address] [place] [address] Kayode Francois, PT [address] [place] [address] 08/04/2025 10:45 AM EST Office Visit [facility] [address] [place] [address] Jr. Torsten Sinha C, DO [address] [facility] [address] [place] [address] Health Maintenance Due Date Last Done Comments [...] Last 3 Months Insurance BCBS Care Teams Obstetrician And Gynaecologist Relationship Specialty Start Date End Date Ziggy Dejesus MD [address] [place] [address] PCP - General Family Medicine 02/13/25
--- OUTSIDE RECORDS SUMMARY | 2025-07-04 10:11 | XMS_ITS | Encounter Summary ---
Author Organization [facility] Address [address] [place] [address] Phone Care Team Providers Care Testing Analyst Name Role Phone Ziggy Dejesus MD Primary Care Provider [phone] Anita Hammonds RN Unavailable Unavailable Encounter Details Date Type Department Care Team (Late st Contact Info) Description 08/20/2024 Scanned Document [facility] [address] [place] [address] Scanning, Generic Provider Social History [...] Description 08/18/2025 11:20 AM EST Office Visit [facility] 703 [facility] [address] [place] [address] Celso Garibay DO 7[address] [facility] 2, [address] [place] [address] documented as of this encounter Visit Diagnoses Not on filedocumented in this encounter Care Teams Testing Analyst Relationship Specialty Start Date End Date Ziggy Dejesus MD [address] [place] [address] PCP - General 08/17/21 Anita Hammonds, body shop estimatorAccount Assistant 08/22/24 10/03/24 documented as of this encounter
--- OUTSIDE RECORDS SUMMARY | 2025-07-04 10:11 | XMS_ITS | Encounter Summary ---
Author Organization [employer] Address [id number] [address] [place] [address] Care Team Providers Care Offset Lithographic Press Setter Name Role Phone Ziggy Dejesus MD Primary Care Provider [phone] Reason for Visit * Reason Comments Med Refill Encounter Details Date Type Department Care Team (Late st Contact Info) Description 09/26/2023 Refill [facility] [address] [place] [address] Antonia Banda, PA-C [address] [facility] [address] [place] [address] [employer] Social History Tobacco Use Types Packs/Day [...] documented as of this encounter Care Teams Offset Lithographic Press Setter Relationship Specialty Start Date End Date Ziggy Dejesus MD PCP - General 02/22/17 documented as of this encounter
--- OUTSIDE RECORDS SUMMARY | 2025-07-04 10:11 | XMS_ITS | Encounter Summary ---
Author Organization [facility] Address [address] [place] [address] Care Team Providers Care Measurement Superintendent Name Role Phone Unavailable Primary Care Provider Unavailabl e Reason for Visit * Reason Onset Date Comments Outside Medical Records Request 06/18/2025 Encounter Details Date Type Department Care Team (Late st Contact Info) Description 06/18/2025 Telephone [facility] [address] [place] [address] [place] [address] Mirian Pitts Outside Medical Records [...] RECORDS RECEIVED FROM REFERRING OFFICE SENT TO [facility] TO SCAN TO CHART - PETAL SHAPER HAND * Telephone Encounter - Mirian Pitts - 06/18/2025 1:09 PM EDT [facility] records requested for upcoming appt. Fax sent to LUCY KIMBLE MD Requested:[phone] Most recent PCP or GI note MOST RECENT EDG/COLON MOST RECENT GI or Hepatology Pathology MOST RECENT LABS IF AVAILABLE PLEASE INCLUDE ANY PROCEDURE REPORTS AND IMAGING INCLUDING RUQ, CTAP, EUS ,ERCP, ESOPHAGRAM, GASTRIC EMPTYING SCAN. Please send electronic copy of images to [facility] Tara documented in this encounter Plan of Treatment Upcoming Encounters Date Type Department Care Team (Late st Contact Info) Description 07/31/2025 3:00 PM EDT Office Visit [facility] [address] [place] [address] [place] [address] Ramiro Britton MD [address] [place] [address] documented as of this encounter Visit Diagnoses Not on filedocumented in this encounter
[2025-07-04 10:54] LABS: Hematocrit 44.7 % (36.0-48.0); Hemoglobin 14.7 g/dL (12.0-16.0); Immature Granulocytes Abs Auto 0.01 10^3/uL (0.00-0.03); Immature Granulocytes Pct Auto 0.2 % (0.0-0.5); Lymphocytes Absolute Auto 1.2 10^3/uL (1.2-3.8); Mean Corpuscular HGB Conc 32.9 g/dL (29.9-35.2); Mean Corpuscular Hemoglobin 29.8 pg (26.7-34.0); Mean Corpuscular Volume 90.7 fL (81.0-99.0); Platelet Count 205 10^3/uL (150-450); Red Blood Count 4.93 10^6/uL (4.20-5.40); White Blood Count 4.7 10^3/uL (4.0-11.0)
[2025-07-04 11:26] LABS: Alanine Aminotransferase 37 U/L (14-59); Albumin Globulin Ratio 1.0; Albumin Level 3.5 g/dL (3.4-5.0); Alkaline Phosphatase 114 U/L (46-116); Amylase 173 U/L (25-115); Anion Gap 9.1; Aspartate Amino Transferase 17 U/L (15-37); Blood Urea Nitrogen 17.0 mg/dL (7.0-18.0); Calcium 9.5 mg/dL (8.5-10.1); Carbon Dioxide 31.8 mmol/L (21.0-32.0); Chloride 103 mmol/L (98-107); Estimated GFR (African America >60 (>=60 mL/min/1.73m^2); Estimated GFR (Non-African Ame >60 (>=60 mL/min/1.73m^2); Globulin 3.6 g/dL; Glucose 106 mg/dL (74-106); Lipase 389.0 U/L (16.0-77.0); Potassium 3.9 mmol/L (3.5-5.1); Sodium 140 mmol/L (136-145); Total Protein 7.1 g/dL (6.4-8.2)
== END 2025-07-04 10:08 | disposition home or self-care (01) ==
LOC: LAB 10:07
PROVIDERS: PCP Family Medicine; Visit Provider Family Medicine
DX: K85.90 Acute pancreatitis without necrosis or infection, unspecified (principal); G47.10 Hypersomnia, unspecified; R53.83 Other fatigue; D61.9 Aplastic anemia, unspecified
CPT/HCPCS: 36415; 80053; 82150; 82306; 82607; 82728; 82746; 83540; 83550; 83690; 84443; 85025

== ENCOUNTER 2025-07-06 17:35 | Inpatient (IN) | payer BC, SELFPAY ==
[2025-07-06] VITALS (13 sets, daily range): BP systolic 133–165; BP diastolic 71–93; PULSE 64–67; TEMP 36.3–36.5; O2SAT 90–98; BMI 33.3; BMI 33.4
--- OUTSIDE RECORDS SUMMARY | 2025-07-06 17:44 | XMS_ITS | CCD ---
Author Organization [facility] Care Team Providers Care Branch Controller Name Role Phone UNKNOWN, PROVIDER Unavailable Unavailable ASHLEY GRIGSBY Unavailable Unavailable UNKNOWN, PROVIDER Unavailable Unavailable ASHLEY GRIGSBY Unavailable Unavailable Ashley Grigsby Primary Care Provider Ashley Grigsby Unavailable Unavailable Unavailable Ashley Grigsby MD Primary Care Provider [phone] Unavailable Unavailable Ashley Grigsby Primary Care Physician [phone] DR CELSO GARIBAY Admitting Unavailabl e [place], [...] Unavailable MD Ashley Grigsby Primary Care Provider [phone] MD Evert Bruno Attending Provider Evert Bruno Unavailable MD Ashley Grigsby Primary Care Provider [phone] MD Evert Bruno Attending Provider Ashley Grigsby MD Primary Care Provider [phone] GABY PHILLIPS Admitting Unavail able GABY PHILLIPS Attending Unavail able ASHLEY GRIGSBY M Primary Care Unavailable HOY, ASHLEY M Primary Care Unavailable Ashley Grigsby MD Primary Care Provider [phone] STEPHANIE BERGER Attending Unavailable SEB, ASHLEY M [...] Admit Provider Donis Arroyo DO Attending Provider [phone] Anita Hammonds RN Unavailable Unavailable Donis Arroyo [...] Unavailable Ashley Grigsby MD Primary Care Provider [phone] Ashley Grigsby MD Primary Care Provider [phone] CHAUNCEY KIMBLE Referring Unavailable ASHLEY GRIGSBY Primary Care Unavailable RADHA JAIMES Referring Unavailable ASHLEY GRIGSBY Primary Care Unavailable Ashley Grigsby MD Primary Care Provider [phone] NARANDI, ALI Attending Unavailable NAWRAS, ALI Referring [...] 017 Other (See Comments), Shortness of breath [place], [place] (20 sources) Latex; Translations: [LATEX] Propensity to adverse reactions to drug 006 Anaphylaxis, Shortness Of Breath, Anaphylaxis (disorder) [place] (16 sources) Penicillins; Translations: [penicillins] Propensity to adverse reactions to drug 006 Hives, Anaphylaxis (disorder) [place] (3 sources) rosuvastatin Drug Allergy 019 [place] (20 sources) Sulfamethoxazole / Trimethoprim; Translations: [Bactrim TABS] Drug Allergy 019 Hives [place] (11 sources) natural latex rubber Allergy to substance (finding) Shortness of breath [facility] Work Phone: (11 sources) Penicillins; Translations: [Penicillins] Allergy to drug (finding) Rash [facility] DO Work Phone: (20 sources) rosuvastatin; Translations: [Crestor TABS] Drug Allergy 017 Elevated liver enzymes level (finding), Other, Other (See Comments) [facility] (16 sources) Sulfonamides (Antibiotic); Translations: [Sulfa Drugs] Allergy to drug (finding) Hives [facility] (20 sources) levoFLOXacin; Translations: [levofloxacin] Drug Allergy 017 Other (See Comments), Candidiasis (disorder) [employer] Phone: (8 sources) Phenazopyridine; Translations: [PHENAZOPYRIDINE HCL] Drug Allergy Nausea And Vomiting [employer] Phone: (3 sources) Simvastatin; Translations: [SIMVASTATIN] [facility]ergy [facility]: (15 sources) Sulfonamides (Antibiotic) Propensity to adverse reactions to drug Other (See Comments), Hives, [facility]ness [facility] breath [facility] (12 sources) Tobramycin; Translations: [tobramycin] Drug Allergy 023 Eruption of skin (disorder), Rash [facility] (1 source) Baclofen Drug Allergy [facility] (1 source) Latex Drug allergy (disorder) [facility] (5 sources) levoFLOXacin; Translations: [Levaquin] Drug Allergy thrush [facility] (1 source) Penicillins Drug allergy (disorder) [facility] (1 source) rosuvastatin Drug Allergy [facility] (1 source) Sulfonamides (Antibiotic) Drug allergy (disorder) [facility] (11 sources) rosuvastatin; Translations: [ROSUVASTATIN] Drug Allergy 017 Gastrointestinal Upset [facility] (5 sources) Sulfamethoxazole; Translations: [sulfamethoxazole] Drug Allergy 023 Hives, Hives, ([place]) 08/08/2011 [facility] (20 sources) Trimethoprim; Translations: [trimethoprim] Drug Allergy 023 Hives, Hives, ([place]) 08/08/2011 [facility] (6 sources) Fenofibrate; Translations: [FENOFIBRATE] Drug Allergy 009 ([place]) 08/08/2011 [facility] (3 sources) Penicillin Drug Allergy ([place]) 08/08/2011 [employer] Other (9 sources) Substance with sulfonamide structure and antibacterial mechanism of action (substance) Drug allergy Shortness of breath, Hives [facility] Other (7 sources) Penicillins Propensity to adverse reactions to drug Hives, Rash [facility] [employer] (14 sources) Tobramycin Drug Allergy Rash [facility] [employer] (7 sources) Fenofibrate; Translations: [FENOFIBRATE MICRONIZED] Drug Allergy [facility] (7 sources) Sulfonamides (Antibiotic); Translations: [SULFA (SULFONAMIDE ANTIBIOTICS)] Propensity to adverse reactions to drug (disorder) Unknown Reaction [facility] (1 source) Baclofen Drug Allergy [facility] (1 source) Fenofibrate Drug Allergy [facility] (1 source) Latex Drug allergy (disorder) [facility] (1 source) levoFLOXacin Drug Allergy [facility] (1 source) Penicillins Drug allergy (disorder) [facility] (13 sources) Baclofen Drug Allergy 017 [...] to adverse reactions to drug (disorder) 006 [facility] Medications Current Medications Medication Drug Class(es) [...] Atherosclerosis of coronary artery bypass graft of [place] heart without angina pectoris , History [...] daily. 0 Active [facility] Calcium 600 MG [...] Active Start: 11-01-2022 take 4 tablets by [facility] once daily Citalopram 10 mg tablet Active 40 MG PO Daily November 01, 2022 12:00am Start: 11-01-2022 take 10 mg by mouth once daily Citalopram Active 10 MG PO Daily November 01, 2022 1:00am End: 08-13-2024 citalopram (CeleXA) 20 MG ta blet Take 20 mg by mouth Active take 2 tablets by [facility] once daily citalopram (CELEXA) 10 MG tablet Take 2 tablets by mouth daily 0 Active clopidogrel 75 mg oral tablet (11 sources) P2Y12 Platelet Inhibitor Start: 09-05-2024 End: 09-05-2025 take 1 tablet by mouth once daily clopidogrel (Plavix) 75 mg tablet Indications: Atherosclerosis of coronary artery bypass graft of [place] heart without angina pectoris , S/P [...] mouth two times weekly Vitamin D (Ergocalciferol) 49441 UNIT 1 capsule Orally TWICE a Week [...] 3 weeks, then 3x per week thereafter, [id number], 160, cm, 04/10/24 15:13:00 EDT, Height/Length Dosing, [...] Start: 04-30-2020 fluticasone 0. 05 mg/inh Nasal [place] Refill(s) 0 Start Date: 04/30/20 Status: Ordered Start: 10-24-2017 End: 02-29-2024 take 2 spray(s) nasal route once daily fluticasone (FLONASE) 50 mcg/actuation nasal spray Indications: Chronic pansinusitis Administer 2 sprays into each nostril daily. 16 g 11 10/24/2017 02/29/2024 Discontinued (Duplicate Listing) fluticasone 0.05 mg/inh Nasal [place] (3 sources) Start: 04-30-2020 fluticasone 0.05 mg/inh Nasal [place] Refill(s) 0 Start Date: 04/30/20 Status: Ordered [...] day(s), # 45 tab(s), Refills(s) 3, Pharmacy: [facility], 160, cm, 06/02/22 8:29:00 EDT, [...] Daily, # 90 tab(s), Refills(s) 3, Pharmacy: [facility], 160, cm, 05/27/21 8:19:00 EDT, [...] 11, Pharmacy: [facility] #[id number], 160, cm, 04/10/24 15:13:00 EDT, Height/Length Dosing, [...] 2 PO) Take by mouth 0 Active brpjzdux-rpyq-WO-arley cium &mins (THERAGRAN-M) 9 mg iron-400 mcg tablet (3 sources) psddlddm-ifxt-RG - calcium &mins (THERAGRAN-M) 9 mg iron-400 [...] mouth 2 times a day. 0 Active Kmrnbfaimchj-Rri-Aejm-Fa-Vit K (Bariatric Multivitamins) 45 mg iron- 800 mcg-120 mcg Capsule (4 sources) Start: 11-01-2022 take 1 capsule by mouth twice daily Mhdigxqbrzea-Yub-Ipbe-Fa-Vit K (Bariatric Multivitamins) 45 mg iron- 800 mcg-120 mcg Capsule Active 1 CAP PO Twice daily November 01, 2022 1:00am Start: 11-01-2022 take 1 capsule by [facility] twice daily Yxtpamduiixi-Zqo-Fwbv-Fa-Vit K (Bariatri c Multivitamins) 45 mg iron- [...] tablet Indications: Atherosclerosis of coronary artery of [place] heart without angina pectoris, unspecified vessel [...] April 21, 2018 11:01pm polyethylene glycol 3350 519388 mg / potassium chloride 2970 mg / sodium bicarbonate 6740 mg / sodium chloride 5860 mg / sodium sulfate 84122 mg powder for oral solution (3 sources) [...] mouth 3 times a day. Active sod dogfv-ubbsxn-uesicb bottle (NEILMED SINUS RINSE COMPLETE) packet with rinse device nasal solution (3 sources) Start: 09-13-2017 take 1 dose nasal route once daily sod wpypq-qrjcpc-cufrix bottle (NEILMED SINUS RINSE COMPLETE) packet with [...] day(s), # 180 cap(s), Refills(s) 3, Pharmacy: [facility], 160, cm, 05/27/21 8:19:00 EDT, Height/Length Dosing, 61, kg, 05/27/21 8:19:00 EDT, Weight Dosing Start Date: 03/14/22 Stop Date: 03/09/23 Status: Ordered Start: 04-17-2018 take 1 capsule by [facility] once daily tamsulosin (Flomax) 0.4 mg [...] 11, Pharmacy: [facility] #[id number], 160, cm, 04/10/24 15:13:00 EDT, Height/Length Dosing, 74, kg, 04/10/24 15:13:00 EDT, Weight Dosing Start Date: 04/10/24 Stop Date: 04/05/25 Status: Ordered vit C,B-Aw-mkgks-lutein-zeaxan (PRESERVISION AREDS-2) 250-90-40-1 mg capsule (1 source) vit C,V-Ww-iyslc-lutein-z eaxan (PRESERVISION AREDS-2) 250-90-40-1 mg capsule Take [...] a day for 30 day(s) Active vitamins A,C,J-tjus-qhogwz (1 source) Start: 08-19-2024 vitamins A,C,I-hitx-xpmwro Active PO August 19, 2024 12:00am Zyrtec [...] ascorbic acid 226 mg / beta carotene 27219 unt / cuprous oxide 0.8 mg / [...] / neomycin 3.5 mg/ml / polymyxin b 48817 unt/ml ophthalmic suspension (3 sources) Aminoglycoside Antibacterial, Polymyxin-class Antibacterial, Corticosteroid Start: 06-13-2021 take 2 drop(s) into the eye(s) four times daily Neomycin-Polymyxin- HC 3.5-78057-5 Ophthalmic Suspension instill 2 drops INTO AFFECTED [...] sources) Coronary atherosclerosis; Translations: [Coronary atherosclerosis of [place] coronary artery] Onset: 2 Chronic Coronary [...] 08-18-2024 Episodic Other aftercare (1 source) 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 Orbits if needed. Please contact patient to schedule Orders Onlyon 05-19-2025 Orders Only [id number] Diana Saleem ttrene 1965 F Date Provider Department Center 05/19/2025 [id number] WATSON [facility] Family History Problem Relation Age of Onset Hyperlipidemia Mother Hyperlipidemia Father Hyperlipidemia Brother Heart attack Brother Family Status - Relation Status Age at Mother Father Brother Brother [facility] Telephoneon 05-19-2025 Telephone [id number] Diana Saleem ttrene 1965 F Date Provider Department Center 05/19/2025 [facility] OM[facility] Family History Problem Relation Age of Onset Hyperlipidemia Mother Hyperlipidemia Father Hyperlipidemia Brother Heart attack Brother Family Status - Relation Status Age at Mother Father Brother Brother [facility] XR Wrist - right 2 Viewson 0 05-15-2025 Image result: AP and Lateral Right Wrist: Bone Structure: No acute fracture or dislocation Joint Spaces: The carpal joint spaces are well preserved, minimal joint space narrowing mostly radial with subchondral sclerosis. Scapho-lunate interval within normal limit. Soft tissue: No swelling or calcification Impression: No acute bony process Right Wrist with minimal degenerative changes. [facility] Radiology Study observation (narrative) [facility] 36on 05-14-2025 36 Maternal Child Nurse spoke with Justo kang the nuclear medicine technologist and clarify some information and that is what was needed so hopefully soon be able to get soon. [facility] Telephoneon 05-14-2025 Telephone [id number] Diana Saleem 1965 F Date Provider Department Center 05/14/2025 [id number] WATSON [facility] Medical Pavi Family History Problem Relation Age of Onset Hyperlipidemia Mother Hyperlipidemia Father Hyperlipidemia Brother Heart attack Brother Family Status - Relation Status Age at Mother Father Brother Brother [facility] Telephone [id number] SaleemDiana orozco tte 1965 [facility] [place] 05/14/2025 GISELA OMER [facility] Family History Problem Relation Age of Onset Hyperlipidemia Mother Hyperlipidemia Father Hyperlipidemia Brother Heart attack Brother Family Status - Relation Status Age at Mother Father Brother Brother [facility] 29on 05-08-2025 29 Addended by: ANALISA TAYLOR on: 05/14/2025 03:06 PM Modules accepted: [facility] 29 Addended by: ANALISA TAYLOR on: 05/12/2025 05:18 PM Modules accepted: [facility] Follow-Upon 05-08-2025 Follow-Up [id number] SaleemDiana ttrene 1965 [facility] 05/08/2025 CHAUNCEY CESPEDES [facility] Family History Problem Relation Age of Onset Hyperlipidemia Mother Hyperlipidemia Father Hyperlipidemia Brother Heart attack Brother Family Status - Relation Status Age at Mother Father Brother Brother Level of Service:62700 [place] OFFICE/OUTPATIENT ESTABLISHED MOD MDM 30 MIN () Reason for Visit and Comments: Follow-up [544704] [facility] 36on 03-25-2025 36 I called the [...] Dr. Kimble is aware of the plan. [facility] Telephoneon 03-25-2025 Telephone [id number] SaleemDiana ttrene 1965 Date Provider Department Center 03/25/2025 [id number]-SANDRA MARTIN [facility] Family History Problem Relation Age of Onset Hyperlipidemia Mother Hyperlipidemia Father Hyperlipidemia Brother Heart attack Brother Family Status - Relation Status Age at Mother Father Brother Brother [facility] 36on 03-20-2025 36 03/25/25@1020 Left pa [...] should she follow up in the clinic. [facility] Telephoneon 03-20-2025 Telephone [id number] Diana Saleem 1965 Provider Department Center 03/20/2025 GISELA OMER [facility] Family History Problem Relation Age of Onset Hyperlipidemia Mother Hyperlipidemia Father Hyperlipidemia Brother Heart attack Brother Family Status - Relation Status Age at Mother Father Brother Brother [facility] 02-18-2025 36 Called and discussed with jay pt the HIDA and MRCP in details. ----- Message from Gisela sent at 02/11/2025 3:15 PM EDT ----- Patient calling for results and follow up plan. Office visit with you and Dr. Kimble 01/09/25 [facility] 36 ----- Message from Gisela sent at 02/11/2025 3:15 PM EDT ----- Patient calling for results and follow up plan. Office visit with you and Dr. Kimble 01/09/25 [facility] Telephoneon 02-18-2025 Telephone [id number] Diana Saleem ttrene 1965 F Date Provider Department Center 02/18/2025 385SANDRA BETHEA [facility] Family History Problem Relation Age of Onset Hyperlipidemia Mother Hyperlipidemia Father Hyperlipidemia Brother Heart attack Brother Family Status - Relation Status Age at Mother Father Brother Brother [facility] 36on 02-11-2025 36 Patient called me to get results of HIDA scan and then what to do as follow up. I do see the HIDA scan results from 01/30/25 @ [facility] and they are normal will forward to Dr. Martin on of our GI [facility] to see what further he would like to do. [facility] Telephoneon 02-11-2025 Telephone [id number] Diana Saleem tte 1965 Date Provider Department Center 02/11/2025 396GISELA ROCHA [facility] Family History Problem Relation Age of Onset Hyperlipidemia Mother Hyperlipidemia Father Hyperlipidemia Brother Heart attack Brother Family Status - Relation Status Age at Mother Father Brother Brother [facility] NM HIDA W EJECTION FRACTIONo n 01-30-2025 [...] Prado M.D.. Not Vldtd Invalid Interpretation Code [facility] Elastase.pancreatic (Stl) [M ass/Mass]on 01-17-2025 Pancreatic Elastase, F 174 mcg/g Low >200 (Normal) [facility] Comment on above: Result Comment: NOTE Interpretation: Borderline (100-200 mcg/g); Consistent with slight to moderate pancreatic insufficiency Test Performed by: [facility] - [address] [address] Local Combination Truck Driver: Andra Flores Ph.D.; CLIA# [id number] Performed By: #### 2 5907-7 #### [facility] ([id number]) [address] [place] [address], [place] [address] 29on 01-09-2025 29 Addended by: CHAUNCEY KIMBLE on: 01/10/2025 08:32 AM Modules accepted: Level of Service [facility] Follow-Upon 01-09-2025 Follow-Up [id number] Diana Saleem tte 1965 F Date Provider Department Center 01/09/2025 375-CHAUNCEY KIMBLE [facility] Family History Problem Relation Age of Onset Hyperlipidemia Mother Hyperlipidemia Father Hyperlipidemia Brother Heart attack Brother Family Status - Relation Status Age at Mother Father Brother Brother Level of Service:73978 [place] OFFICE/OUTPATIENT ESTABLISHED MOD MDM 30 MIN () Reason for Visit and Comments: Follow-up [542086] - MRI follow up and seen at [facility] and in hospital for 1 day. Will get records. nEzo helped tremendously this time and she came home with it, She just complains of fatigue. PCP Ordered sleep study [facility] 36on 01-02-2025 36 01/02/25@4489 Returned a phone call to patient. She had wanted to follow up with Dr. Chauncey Kimble to let him know she is currently in the ER at [facility] dx with pancreatitis. She had an MRCP on 12/31/24 and if any other lab work needs done to call the Hospital. [facility] Telephoneon 01-02-2025 Telephone [id number] Diana Saleem ttrene 1965 Date Provider Department Center 01/02/2025 GISELA OMER [facility] Family History Problem Relation Age of Onset Hyperlipidemia Mother Hyperlipidemia Father Hyperlipidemia Brother Heart attack Brother Family Status - Relation Status Age at Mother Father Brother Brother [facility] MR ABDOMEN W AND WO CONTRAST [...] Landeros MD. Not Vldtd Invalid Interpretation Code [facility] Follow-Upon 12-12-2024 Follow-Up [id number] Diana Saleem ttrene 1965 F Date Provider Department Center 12/12/2024 CHAUNCEY CESPEDES [facility] Family History Problem Relation Age of Onset Hyperlipidemia Mother Hyperlipidemia Father Hyperlipidemia Brother Heart attack Brother Family Status - Relation Status Age at Mother Father Brother Brother Level of Service:25099 [place] OFFICE/OUTPATIENT NEW MODERATE MDM 45 MINUTES (GC) Reason for Visit and Comments: Pancreatitis [926173] - Pain when she stresses or when she eats. She has trouble with losing weight as she always feels bloated and gassy. [facility] XR Wrist - right 2 Viewson 0 11-26-2024 Imaging Result: AP and Lateral Right Wrist: Bone Structure: No acute fracture or dislocation Joint Spaces: The carpal joint spaces are well preserved, mild joint space narrowing and remodeling with subchondral sclerosis distal radius favoring arthritis. , Scapho-lunate interval within normal limit. Soft tissue: No swelling or calcification Impression: No acute bony process Right Wrist [facility] Radiology Study observation (narrative) [facility] XR FOREARM RT 2 VWSon 2024 XR FOREARM RT 2 VWS XR FOREARM RT 2 VWS CLINICAL INFORMATION: Right arm pain TECHNIQUE: XR FOREARM RT 2 VWS 2 views right forearm are obtained. There is no acute osseous, articular, or soft tissue abnormality. IMPRESSION: Negative exam. Finalized by Afshin Barrett MD on 10/11/2024 1:[address] [facility] ECG 12 lead ECGon 08-22-2024 ECG 12 lead ECG [facility] [place] [address] [place] [address] Electrocardiograph Report Signed Patient: Jose Alberto Saleem MR#: [id number] : 1965 Acct:[id number] Age/Sex: 59 / F ADM Date: 08/20/24 Loc: Room: [address] [place] [address] Type: DIS IN Attending Dr: Kaiser Quijano [...] abnormality Abnormal ECG Confirmed by Bella Stein ([id number]) on 08/22/2024 11:33:07 PM Referred By: Bella Stein Electronically Signed By: Bella Stein Transcribed By: MUS Signed By Bella Stein MD 4 2333 Normal [facility] Troponin I High Sensitivityo n 08-22-2024 Troponin I High Sensitivity 1211.6 pg/mL Off scale high 0.0-15.0 [facility] Comment on above: Result Comment: Crit ical Result : Called to and read back by: ROB MCDONALD at: 08/22/2024 06:38:37 by:RAMONA PERFORMED BY: [place] [address] PATHOLOGIST TRACK INSPECTING SUPERVISOR JANA OLMEDO M.D. Performed By: #### H S TROP ####[facility] [id number] [place] [address] [facility] Blood Urea Nitrogenon 2023 Urea nitrogen [Mass/Vol] 14 mg/dL Normal 7-25 [facility] Comment on above: Performed By: #### C REAT, BUN, PP, CBC, LYTES ####[place] [id number] [place] [address] [facility] Coagulation Profileon 2023 aPTT Coag (Bld) [Time] 35.9 s Normal 25.1-36.5 [facility] Comment on above: Result Comment: A he matocrit value greater than 55% may lead to inaccurate results in coagulation testing. Patients having hematocrit values >55% require a special collection tube for coagulation studies. Please contact the laboratory at [phone] for redraw instructions. PERFORMED BY: [address] [place] [id number] PATHOLOGIST TRACK INSPECTING SUPERVISOR JANA OLMEDO M.D. Performed By: #### C REAT, BUN, PP, CBC, LYTES ####[place] [id number] [facility] INR Coag (PPP) [Relative time] 1.1 {INR} Normal [facility] Comment on above: [...] #### C REAT, BUN, PP, CBC, LYTES ####[place] [id number] [facility] PT Coag (PPP) [Time] 12.2 s Normal 9.0-12.9 [facility] Comment on above: Result Comment: A he matocrit value greater than 55% may lead to inaccurate results in coagulation testing. Patients having hematocrit values >55% require a special collection tube for coagulation studies. Please contact the laboratory at [phone] for redraw instructions. Performed By: #### C REAT, BUN, PP, CBC, LYTES ####[address] Complete Blood Count Auto Di ffon 08-21-2024 Basophils (Bld) [#/Vol] 0.0 10*3/uL Normal 0.0-0.2 [facility] Comment on above: Result Comment: PERF ORMED BY: [facility] [address] [place] [address] PATHOLOGIST TRACK INSPECTING SUPERVISOR JANA OLMEDO M.D. Performed By: #### C REAT, BUN, PP, CBC, LYTES ####[address] Basophils/100 WBC (Bld) 0.3 % Normal . [facility] Comment on above: Performed By: #### C REAT, BUN, PP, CBC, LYTES ####[address] Eosinophils (Bld) [#/Vol] 0.2 10*3/uL Normal 0.0-0.45 [facility] Comment on above: Performed By: #### C REAT, BUN, PP, CBC, LYTES ####[address] Eosinophils/100 WBC (Bld) 3.9 % Normal . [facility] Comment on above: Performed By: #### C REAT, BUN, PP, CBC, LYTES ####[address] Erythrocyte distribution width (RBC) [Ratio] 12.7 % Normal 11.9-15.3 [facility] Comment on above: Performed By: #### C REAT, BUN, PP, CBC, LYTES ####[address] Hematocrit (Bld) [Volume fraction] 42.5 % Normal 34.0-46.4 [facility] Comment on above: Performed By: #### C REAT, BUN, PP, CBC, LYTES ####[address] Hemoglobin (Bld) [Mass/Vol] 14.6 g/dL Normal 11.8-15.4 [facility] Comment on above: Performed By: #### C REAT, BUN, PP, CBC, LYTES ####[address] Lymphocytes (Bld) [#/Vol] 1.7 10*3/uL Normal 1.00-4.8 [facility] Comment on above: Performed By: #### C REAT, BUN, PP, CBC, LYTES ####[address] Lymphocytes/100 WBC (Bld) 35.0 % Normal . [facility] Comment on above: Performed By: #### C REAT, BUN, PP, CBC, LYTES ####[address] MCH (RBC) [Entitic mass] 30.8 pg Normal 24.7-34.3 [facility] Comment on above: Performed By: #### C REAT, BUN, PP, CBC, LYTES ####[address] MCV (RBC) [Entitic vol] 89.8 fL Normal 80-100 [facility] Comment on above: Performed By: #### C REAT, BUN, PP, CBC, LYTES ####[address] Mean Corpuscular HGB Conc 34.3 g/dL Normal 32.0-35.0 [facility] Comment on above: Performed By: #### C REAT, BUN, PP, CBC, LYTES ####[address] Monocytes (Bld) [#/Vol] 0.5 10*3/uL Normal 0.0-0.8 [facility] Comment on above: Performed By: #### C REAT, BUN, PP, CBC, LYTES ####[address] Monocytes/100 WBC (Bld) 10.9 % Normal . [facility] Comment on above: Performed By: #### C REAT, BUN, PP, CBC, LYTES ####[address] Neutrophils (Bld) [#/Vol] 2.5 10*3/uL Normal 1.8-7.7 [facility] Comment on above: Performed By: #### C REAT, BUN, PP, CBC, LYTES ####[address] Neutrophils/100 WBC (Bld) 49.9 % Normal . [facility] Comment on above: Performed By: #### C REAT, BUN, PP, CBC, LYTES ####[address] NRBC% 0.1 /100{WBC} Normal 0-0.5 The [facility] Comment on above: Performed By: #### C REAT, BUN, PP, CBC, LYTES ####[address] Platelet mean volume (Bld) [Entitic vol] 7.7 fL Normal 6.3-10.[address] [facility] Comment on above: Performed By: #### C REAT, BUN, PP, CBC, LYTES ####[address] Platelets (Bld) [#/Vol] 172 10*3/uL Normal 150-450 [facility] Comment on above: Performed By: #### C REAT, BUN, PP, CBC, LYTES ####[address] RBC (Bld) [#/Vol] 4.73 10*6/uL Normal 3.60-5.00 The [facility] Comment on above: Performed By: #### C REAT, BUN, PP, CBC, LYTES ####[place] [id number] [place] [id number] [facility] WBC (Bld) [#/Vol] 4.9 10*3/uL Normal 3.8-11.6 The [facility] Comment on above: Performed By: #### C REAT, BUN, PP, CBC, LYTES ####[place] [address] [place] [address] [facility] Creatinineon 08-21-2024 Creatinine [Mass/Vol] 0.61 mg/dL Normal 0.60-1.20 [facility] Comment on above: Performed By: #### C REAT, BUN, PP, CBC, LYTES ####[place] [id number] [facility] Creatinine Clr Calc Pharmacy 97.73 Normal [facility] Comment on above: Result Comment: PERF ORMED BY: [place] [address] PATHOLOGIST TRACK INSPECTING SUPERVISOR JANA OLMEDO M.D. Performed By: #### C REAT, BUN, PP, CBC, LYTES ####[place] [id number] [facility] GFR/1.73 sq M.predicted MDRD (S/P/Bld) [Vol rate/Area] mL/min/{1.73_m2} Normal [facility] Comment on above: Performed By: #### C REAT, BUN, PP, CBC, LYTES ####[place] [id number] [facility] ECG 12 lead ECGon 08-21-2024 ECG 12 lead ECG [facility] Main [place] [address] [place] [address] Electrocardiograph Report Signed Patient: Jose Alberto Saleem MR#: [id number] : 1965 Acct:[id number] Age/Sex: 59 / F ADM Date: 08/20/24 Loc: Room: [address] [place] [address] Type: DIS IN Attending Dr: Kaiser Quijano [...] abnormality Abnormal ECG Confirmed by Bella Stein ([id number]) on 08/22/2024 11:33:52 PM Referred By: Bella Stein Electronically Signed By: Bella Stein Transcribed By: [facility] Signed By Bella Stein MD 4 2333 Normal [facility] Electrolyteson 08-21-2024 Anion gap [Moles/Vol] 11.0 mmol/L Normal 6.0-15.0 Th e [facility] Physician [facility] Comment on above: Performed By: #### C REAT, BUN, PP, CBC, LYTES ####[address] Chloride [Moles/Vol] 105 mmol/L Normal 98-107 [facility] Physician [facility] Comment on above: Performed By: #### C REAT, BUN, PP, CBC, LYTES ####[address] CO2 [Moles/Vol] 27.9 mmol/L Normal 21.0-31.0 The [facility] Comment on above: Performed By: #### C REAT, BUN, PP, CBC, LYTES ####[address] Potassium [Moles/Vol] 3.9 mmol/L Normal 3.5-5.1 [facility] Physician [facility] Comment on above: Performed By: #### C REAT, BUN, PP, CBC, LYTES ####[address] Sodium [Moles/Vol] 140 mmol/L Normal 136-145 The [facility] Comment on above: Performed By: #### C REAT, BUN, PP, CBC, LYTES ####[facility] [place] [address] [facility] NM lia perf SPECT rest stron 08-20-2024 NM lia perf SPECT rest str [facility] Main [place] [id number] Nuclear Medicine Report Signed Patient: Jose Alberto Saleem MR#: [id number] : 1965 Acct:[id number] Age/Sex: 59 / F ADM Date: 08/18/24 Loc: Room: [address] [place] [address] Type: ADM INOo Attending Dr: Chucky Dunn [...] Bella Stein M.D.08/20/2024 3:56 PM Dictation Location: [place] [address] Transcribed By: [facility] 08/20/24 1558 Dictated By: Bella Stein MD 08/20/24 1552 Signed By: 08/20/24 1556 Normal [facility] A1C with Estimated Average G rebekahlio 08-19-2024 Glucose [Mass/Vol] 117 mg/dL Normal The [facility] Comment on above: Result Comment: PERF ORMED BY: [address] [address] PATHOLOGIST TRACK INSPECTING SUPERVISOR JANA OLMEDO M.D. Performed By: #### A [address] [facility] eA, TROP ####[facility] [place] [address] [facility] HbA1c (Bld) [Mass fraction] 5.7 % High 4.3-5.6 [facility] Comment on above: Result Comment: Incr eased risk for diabetes: 5.7 - 6.4 diabetes: >6.4 glycemic control for adults with diabetes: <7.0 Performed By: #### A [address] [facility] eA, HS TROP ####[facility] [address] [place] [address] [facility] ECG 12 lead ECGon 08-19-2024 ECG 12 [place] [address] Electrocardiograph Report Signed Patient: Jose Alberto Saleem MR#: [id number] : 1965 Acct:[id number] Age/Sex: 59 / F ADM Date: 08/18/24 Loc: Room: [address] [place] [address] Type: ADM INOo Attending Dr: Chucky Dunn [...] abnormality Abnormal ECG Confirmed by Bella Stein ([id number]) on 08/21/2024 12:00:39 AM Referred By: Bella Stein Electronically Signed By: Bella Stein Transcribed By: MUS Signed By Bella Stein MD 4 0000 Normal [facility] ECG 12 lead ECG [facility] [place] [address] Electrocardiograph Report Signed Patient: Jose Alberto Saleem MR#: [id number] 571 : 1965 Acct:[id number] Age/Sex: 59 / F ADM Date: 08/18/24 Loc: 3T Room: [address] [place] [address] Type: ADM INOo Attending Dr: Chucky Dunn [...] rhythm Leftward axis Confirmed by Bridgett Monreal ([id number]) on 08/20/2024 11:52:24 PM Referred By: Bella Stein Electronically Signed By: Bridgett Monreal Transcribed By: MUS Signed By Bridgett Monreal MD 08/20/24 2352 Normal [facility] Troponin I High Sensitivityo n 08-19-2024 Troponin I High Sensitivity 4.6 pg/mL Normal 0.0-15.0 [facility] Comment on above: Result Comment: PERF ORMED BY: [place] [address] PATHOLOGIST TRACK INSPECTING SUPERVISOR JANA OLMEDO M.D. Performed By: #### A 1C [facility], [facility] ####[place] [id number] [facility] X-ray reportOrdered By: Anna Wick on 08-19-2024 [place] [address] XRay Report Signed Patient: Jose Alberto Saleem MR#: [id number] : 1965 Acct:[id number] Age/Sex: 59 / F ADM Date: 4 Loc: 3T Room: [address] [place] [address] Type: ADM INOo Attending Dr: Donis Arroyo [...] Thelma Wick M.D.08/19/2024 12:10 AM Dictation Location: [place] [address] Transcribed By: [facility] 08/19/249 Dictated By: Thelma Wick MD 08/18/242210 Signed By: 08/19/249 [facility] Work Phone: Alanine aminotransferase [En zymatic activity/volume] in Serum or PlasmaOrdered By: Lynnette Chapman on 08-18-2024 ALT [Catalytic activity/Vol] Alanine aminotransferase [Enzymatic activity/volume] in Serum or Plasma 7-52 [facility] Albumin [Mass/volume] in Ser um or Plasma by Bromocresol green (BCG) dye binding methoOrdered By: Lynnette Chapman on 08-18-2024 Albumin BCG dye [Mass/Vol] Albumin [Mass/volume] in Serum or Plasma by Bromocresol green (BCG) dye binding metho 3.5-5.7 [facility] Alkaline phosphatase [Enzyma tic activity/volume] in Serum or PlasmaOrdered By: Lynnette Chapman on 08-18-2024 ALP [Catalytic activity/Vol] Alkaline phosphatase [Enzymatic activity/volume] in Serum or Plasma 34-104 [facility] Aspartate aminotransferase [ Enzymatic activity/volume] in Serum or PlasmaOrdered By: Lynnetet Chapman on 08-18-2024 AST [Catalytic activity/Vol] Aspartate aminotransferase [Enzymatic activity/volume] in Serum or Plasma 13-39 [facility] B-Type Natriuretic Peptideon 08-18-2024 Natriuretic peptide B (Bld) [Mass/Vol] 31.0 pg/mL Normal 5-100 [facility] Comment on above: Result Comment: PERF ORMED BY: [place] [address] PATHOLOGIST TRACK INSPECTING SUPERVISOR JANA OLMEDO M.D. Performed By: #### H S TROP, LIPASE, PT, BMP, HEPATIC, CK, CBC, BNP ####[address] Basic Metabolic Panelon 08-01 Anion gap [Moles/Vol] 10.7 mmol/L Normal 6.0-15.0 [facility] Comment on above: Performed By: #### H S TROP, LIPASE, PT, BMP, HEPATIC, CK, CBC, BNP #### [address] Performed By: #### H S TROP, LIPASE, PT, BMP, HEPATIC, CK, CBC, BNP ####[address] Calcium [Mass/Vol] 10.1 mg/dL Normal 8.6-10.3 [facility] Comment on above: Performed By: #### H S TROP, LIPASE, PT, BMP, HEPATIC, CK, CBC, BNP #### [address] Performed By: #### H S TROP, LIPASE, PT, BMP, HEPATIC, CK, CBC, BNP ####[address] Chloride [Moles/Vol] 102 mmol/L Normal 98-107 [facility] Comment on above: Performed By: #### H S TROP, LIPASE, PT, BMP, HEPATIC, CK, CBC, BNP #### [address] Performed By: #### H S TROP, LIPASE, PT, BMP, HEPATIC, CK, CBC, BNP ####[address] [address] [place] CO2 [Moles/Vol] 28.4 mmol/L Normal 21.0-31.0 [facility] Comment on above: Performed By: #### H S TROP, LIPASE, PT, BMP, HEPATIC, CK, CBC, BNP #### [address] Performed By: #### H S TROP, LIPASE, PT, BMP, HEPATIC, CK, CBC, BNP ####[address] Creatinine [Mass/Vol] 0.62 mg/dL Normal 0.60-1.20 [facility] Comment on above: Performed By: #### H S TROP, LIPASE, PT, BMP, HEPATIC, CK, CBC, BNP #### [address] Performed By: #### H S TROP, LIPASE, PT, BMP, HEPATIC, CK, CBC, BNP ####[address] Creatinine Clr Calc Pharmacy 95.72 Normal [facility] Comment on above: Result Comment: PERF ORMED BY: [place] [address] PATHOLOGIST TRACK INSPECTING SUPERVISOR JANA OLMEDO M.D. Performed By: #### H S TROP, LIPASE, PT, BMP, HEPATIC, CK, CBC, BNP #### [address] Performed By: #### H S TROP, LIPASE, PT, BMP, HEPATIC, CK, CBC, BNP ####[address] GFR/1.73 sq M.predicted MDRD (S/P/Bld) [Vol rate/Area] mL/min/{1.73_m2} Normal [facility] Comment on above: Performed By: #### H S TROP, LIPASE, PT, BMP, HEPATIC, CK, CBC, BNP #### [facility] [address] [place] [address] [place] Performed By: #### H S TROP, LIPASE, PT, BMP, HEPATIC, CK, CBC, BNP ####[address] Glucose [Mass/Vol] 94 mg/dL Normal 70-100 [facility] Comment on above: Result Comment: [facility] Glucose Reference Range is dependent on time and content of last meal. Glucose of more than 200 mg/dL in a nonstressed, ambulatory subject supports the diagnosis of Diabetes Mellitus. ADA recommended reference range Performed By: #### H S TROP, LIPASE, PT, BMP, HEPATIC, CK, CBC, BNP #### [address] Performed By: #### H S TROP, LIPASE, PT, BMP, HEPATIC, CK, CBC, BNP ####[address] Potassium [Moles/Vol] 4.1 mmol/L Normal 3.5-5.1 [facility] Comment on above: Performed By: #### H S TROP, LIPASE, PT, BMP, HEPATIC, CK, CBC, BNP #### [address] Performed By: #### H S TROP, LIPASE, PT, BMP, HEPATIC, CK, CBC, BNP ####[address] Sodium [Moles/Vol] 137 mmol/L Normal 136-145 [facility] Comment on above: Performed By: #### H S TROP, LIPASE, PT, BMP, HEPATIC, CK, CBC, BNP #### [address] Performed By: #### H S TROP, LIPASE, PT, BMP, HEPATIC, CK, CBC, BNP ####[address] Urea nitrogen [Mass/Vol] 22 mg/dL Normal 7-25 [facility] Comment on above: Performed By: #### H S TROP, LIPASE, PT, BMP, HEPATIC, CK, CBC, BNP #### [address] [place] [address] [place] Performed By: #### H S TROP, LIPASE, PT, BMP, HEPATIC, CK, CBC, BNP ####[facility] [address] Basophils Auto (Bld) [#/Vol] Ordered By: Lynnette Chapman on 08-18-2024 Basophils (Bld) [#/Vol] Automated basophil count 0.0-0.2 [facility] Basophils/100 WBC Auto (Bld) Ordered By: Lynnette Chapman on 08-18-2024 Basophils/100 WBC (Bld) Automated basophil % . [facility] Bilirubin.direct [Mass/volum e] in Serum or PlasmaOrdered By: Lynnette Chapman on 08-18-2024 Bilirubin.direct [Mass/Vol] Bilirubin.direct [Mass/volume] in Serum or Plasma 0.03-0.18 [facility] Bilirubin.total [Mass/volume ] in Serum or PlasmaOrdered By: Lynnette Chapman on 08-18-2024 Bilirubin [Mass/Vol] Bilirubin.total [Mass/volume] in Serum or Plasma 0.3-1.0 [facility] Calcium [Mass/volume] in Ser um or PlasmaOrdered By: Lynnette Chapman on 08-18-2024 Calcium [Mass/Vol] Calcium [Mass/volume ] in Serum or Plasma 8.6-10.3 [facility] Carbon dioxide, total [Moles /volume] in Serum or PlasmaOrdered By: Lynnette Chapman on 08-18-2024 CO2 [Moles/Vol] Carbon dioxide, tota l [Moles/volume] in Serum or Plasma 21.0-31.0 [facility] Chloride [Moles/volume] in S nina or PlasmaOrdered By: Lynnette Chapman on 08-18-2024 Chloride [Moles/Vol] Chloride [Moles/vol ume] in Serum or Plasma 98-107 [facility] Complete Blood Count Auto Di ffon 08-18-2024 Basophils (Bld) [#/Vol] 0.0 10*3/uL Normal 0.0-0.2 [facility] Comment on above: Result Comment: PERF ORMED BY: [facility] [address] [place] [address] PATHOLOGIST TRACK INSPECTING SUPERVISOR JANA OLMEDO M.D. Performed By: #### H S TROP, LIPASE, PT, BMP, HEPATIC, CK, CBC, BNP #### [address] Basophils/100 WBC (Bld) 0.7 % Normal . [facility] Comment on above: Performed By: #### H S TROP, LIPASE, PT, BMP, HEPATIC, CK, CBC, BNP #### [address] Eosinophils (Bld) [#/Vol] 0.2 10*3/uL Normal 0.0-0.45 [facility] Comment on above: Performed By: #### H S TROP, LIPASE, PT, BMP, HEPATIC, CK, CBC, BNP #### [address] Eosinophils/100 WBC (Bld) 3.5 % Normal . [facility] Comment on above: Performed By: #### H S TROP, LIPASE, PT, BMP, HEPATIC, CK, CBC, BNP #### [address] Erythrocyte distribution width (RBC) [Ratio] 12.6 % Normal 11.9-15.3 [facility] Comment on above: Performed By: #### H S TROP, LIPASE, PT, BMP, HEPATIC, CK, CBC, BNP #### [address] Hematocrit (Bld) [Volume fraction] 43.7 % Normal 34.0-46.4 [facility] Comment on above: Performed By: #### H S TROP, LIPASE, PT, BMP, HEPATIC, CK, CBC, BNP #### [address] Hemoglobin (Bld) [Mass/Vol] 15.1 g/dL Normal 11.8-15.4 [facility] Comment on above: Performed By: #### H S TROP, LIPASE, PT, BMP, HEPATIC, CK, CBC, BNP #### [address] Lymphocytes (Bld) [#/Vol] 2.2 10*3/uL Normal 1.00-4.8 [facility] Comment on above: Performed By: #### H S TROP, LIPASE, PT, BMP, HEPATIC, CK, CBC, BNP #### [address] Lymphocytes/100 WBC (Bld) 36.5 % Normal . [facility] Comment on above: Performed By: #### H S TROP, LIPASE, PT, BMP, HEPATIC, CK, CBC, BNP #### [address] MCH (RBC) [Entitic mass] 30.7 pg Normal 24.7-34.3 [facility] Comment on above: Performed By: #### H S TROP, LIPASE, PT, BMP, HEPATIC, CK, CBC, BNP #### [address] MCV (RBC) [Entitic vol] 88.8 fL Normal 80-100 [facility] Comment on above: Performed By: #### H S TROP, LIPASE, PT, BMP, HEPATIC, CK, CBC, BNP #### [address] Mean Corpuscular HGB Conc 34.5 g/dL Normal 32.0-35.0 [facility] Comment on above: Performed By: #### H S TROP, LIPASE, PT, BMP, HEPATIC, CK, CBC, BNP #### [address] Monocytes (Bld) [#/Vol] 0.6 10*3/uL Normal 0.0-0.8 [facility] Comment on above: Performed By: #### H S TROP, LIPASE, PT, BMP, HEPATIC, CK, CBC, BNP #### [address] Monocytes/100 WBC (Bld) 16.97 % Normal 0.00-20.00 [facility] Comment on above: Performed By: #### H S TROP, LIPASE, PT, BMP, HEPATIC, CK, CBC, BNP #### [address] Monocytes/100 WBC (Bld) 10.5 % Normal . [facility] Comment on above: Performed By: #### H S TROP, LIPASE, PT, BMP, HEPATIC, CK, CBC, BNP #### [address] Neutrophils (Bld) [#/Vol] 3.0 10*3/uL Normal 1.8-7.7 [facility] Comment on above: Performed By: #### H S TROP, LIPASE, PT, BMP, HEPATIC, CK, CBC, BNP #### [address] Neutrophils/100 WBC (Bld) 48.8 % Normal . [facility] Comment on above: Performed By: #### H S TROP, LIPASE, PT, BMP, HEPATIC, CK, CBC, BNP #### [address] NRBC% 0.1 /100{WBC} Normal 0-0.5 [facility] Comment on above: Performed By: #### H S TROP, LIPASE, PT, BMP, HEPATIC, CK, CBC, BNP #### [address] Platelet mean volume (Bld) [Entitic vol] 7.9 fL Normal 6.3-10.[address] [facility]ician Group Comment on above: Performed By: #### H S TROP, LIPASE, PT, BMP, HEPATIC, CK, CBC, BNP #### [address] Platelets (Bld) [#/Vol] 204 10*3/uL Normal 150-450 [facility] Comment on above: Performed By: #### H S TROP, LIPASE, PT, BMP, HEPATIC, CK, CBC, BNP #### [address] RBC (Bld) [#/Vol] 4.92 10*6/uL Normal 3.60-5.00 [facility] Comment on above: Performed By: #### H S TROP, LIPASE, PT, BMP, HEPATIC, CK, CBC, BNP #### [facility] [address] WBC (Bld) [#/Vol] 6.1 10*3/uL Normal 3.8-11.6 [facility] Group Comment on above: Performed By: #### H S TROP, LIPASE, PT, BMP, HEPATIC, CK, CBC, BNP #### [facility] [address] Creatine Kinaseon 08-18-2024 CK [Catalytic activity/Vol] 53 U/L Normal 30-223 [facility] Comment on above: Performed By: #### H S TROP, LIPASE, PT, BMP, HEPATIC, CK, CBC, BNP ####[facility] Creatine kinase [Enzymatic a ctivity/volume] in Serum or PlasmaOrdered By: Lynnette Chapman on 08-18-2024 CK [Catalytic activity/Vol] Creatine kinase [Enzymatic activity/volume] in Serum or Plasma 30-223 [facility] Creatinine [Mass/volume] in Serum or PlasmaOrdered By: Lynnette Chapman on 08-18-2024 Creatinine [Mass/Vol] Creatinine [Mass/v olume] in Serum or Plasma 0.60-1.20 [facility] ECG 12 lead ECGon 08-18-2024 ECG 12 lead ECG [facility] [place] [address] Electrocardiograph Report Signed Patient: Jose Alberto Saleem MR#: [id number] : 1965 Acct:[id number] Age/Sex: 59 / F ADM Date: 08/18/24 Loc: ER Room: Type: [facility] ER Attending Dr: Ordering Provider: Lynnette Chapman [...] wave abnormality Confirmed by Lynnette Chapman MD ([id number]) on 08/18/2024 11:22:40 PM Referred By: Electronically Signed By: Lynnette Chapman MD Transcribed By: MUS Signed By Lynnette Chapman MD 08/01 05/24 6746 Normal [facility] Eosinophils Auto (Bld) [#/Vo l]Ordered By: Lynnette Chapman on 08-18-2024 Eosinophils (Bld) [#/Vol] Automated eosinophil count 0.0-0.45 [facility] Eosinophils/100 WBC Auto (Bl d)Ordered By: Lynnette Chapman on 08-18-2024 Eosinophils/100 WBC (Bld) Automated eosinophil % . [facility] Erythrocyte distribution wid th Auto (RBC) [Ratio]Ordered By: Lynnette Chapman on 08-18-2024 Erythrocyte distribution width (RBC) [Ratio] Erythrocyte distribution width [Ratio] by Automated count 11.9-15.3 [facility] Globulin Calc (S) [Mass/Vol] Ordered By: Lynnette Chapman on 08-18-2024 Globulin (S) [Mass/Vol] Serum globulin measurement by calculation (mass/volume) [facility] Glucose [Mass/volume] in Ser um or PlasmaOrdered By: Lynnette Chapman on 08-18-2024 Glucose [Mass/Vol] Glucose [Mass/volume ] in Serum or Plasma 70-100 [facility] Comment on above: ADA recommended refe rence rangeRandom Glucose Reference Range is dependent on time and content of last meal. Glucose of more than 200 mg/dL in a nonstressed, ambulatory subject supports the diagnosis of Diabetes Mellitus. Hematocrit Auto (Bld) [Volum e fraction]Ordered By: Lynnette Chapman on 08-18-2024 Hematocrit (Bld) [Volume fraction] Hematocrit [Volume Fraction] of Blood by Automated count 34.0-46.4 [facility] Hemoglobin [Mass/volume] in BloodOrdered By: Lynnette Chapman on 08-18-2024 Hemoglobin (Bld) [Mass/Vol] Hemoglobin [Mass/volume] in Blood 11.8-15.4 [facility] Hepatic Panelon 08-18-2024 Albumin [Mass/Vol] 4.3 g/dL Normal 3.5-5.7 [facility] Comment on above: Performed By: #### H S TROP, LIPASE, PT, BMP, HEPATIC, CK, CBC, BNP ####[address] Albumin/Globulin [Mass ratio] 1.7 {ratio} Normal [facility] Comment on above: Performed By: #### H S TROP, LIPASE, PT, BMP, HEPATIC, CK, CBC, BNP ####[address] ALP [Catalytic activity/Vol] 89 U/L Normal 34-104 [facility] Comment on above: Performed By: #### H S TROP, LIPASE, PT, BMP, HEPATIC, CK, CBC, BNP ####[address] ALT [Catalytic activity/Vol] 42 U/L Normal 7-52 [facility] Comment on above: Performed By: #### H S TROP, LIPASE, PT, BMP, HEPATIC, CK, CBC, BNP ####[address] AST [Catalytic activity/Vol] 31 U/L Normal 13-39 [facility] Comment on above: Performed By: #### H S TROP, LIPASE, PT, BMP, HEPATIC, CK, CBC, BNP ####[address] Bilirubin [Mass/Vol] 0.4 mg/dL Normal 0.3-1.0 [facility] Comment on above: Performed By: #### H S TROP, LIPASE, PT, BMP, HEPATIC, CK, CBC, BNP ####[address] Bilirubin,Indirect 0.3 mg/dL Normal [facility] Comment on above: Performed By: #### H S TROP, LIPASE, PT, BMP, HEPATIC, CK, CBC, BNP ####[address] [place] [address] [facility] Bilirubin.indirect [Mass/Vol] 0.10 mg/dL Normal 0.03-0.18 [facility] Comment on above: Performed By: #### H S TROP, LIPASE, PT, BMP, HEPATIC, CK, CBC, BNP ####[place] [id number] [address] Globulin (S) [Mass/Vol] 2.6 g/dL Normal [facility] Comment on above: Performed By: #### H S TROP, LIPASE, PT, BMP, HEPATIC, CK, CBC, BNP ####[place] [id number] [address] Protein [Mass/Vol] 6.9 g/dL Normal 6.4-8.9 [facility] Comment on above: Performed By: #### H S TROP, LIPASE, PT, BMP, HEPATIC, CK, CBC, BNP ####[address] INR in Platelet poor plasma by Coagulation assayOrdered By: Lynnette Chapman on 08-18-2024 INR Coag (PPP) [Relative time] INR in Platelet poor plasma by Coagulation assay [facility] Comment on above: INR Therapeutic Rang e [...] Blood by Automated coun 3.8-11.6 [facility] Lipaseon 08-18-2024 Lipase [Catalytic activity/Vol] 110.0 U/L High 11.0-82.0 [facility] Comment on above: Result Comment: PERF ORMED BY: [facility] [address] [place] [id number] PATHOLOGIST TRACK INSPECTING SUPERVISOR JANA OLMEDO M.D. Performed By: #### H S TROP, LIPASE, PT, BMP, HEPATIC, CK, CBC, BNP ####[facility] [address] [place] [id number] [facility] Lipase [Enzymatic activity/v olume] in Serum or PlasmaOrdered By: Lynnette Chapman on 08-18-2024 Lipase [Catalytic activity/Vol] Lipase [Enzymatic activity/volume] in Serum or Plasma High 11.0-82.0 [facility] Lymphocytes Auto (Bld) [#/Vo l]Ordered By: Lynnette Chapman on 08-18-2024 Lymphocytes (Bld) [#/Vol] Lymphocytes [#/volume] in Blood by Automated count 1.00-4.8 [facility] Lymphocytes/100 WBC Auto (Bl d)Ordered By: Lynnette Chapman on 08-18-2024 Lymphocytes/100 WBC (Bld) Lymphocytes/100 leukocytes in Blood by Automated count . [facility] MCH Auto (RBC) [Entitic mass ]Ordered By: Lynnette Chapman on 08-18-2024 MCH (RBC) [Entitic mass] MCH [Entitic mass] by Automated count 24.7-34.3 [facility] MCHC Auto (RBC) [Mass/Vol]Or dered By: Lynnette Chapman on 08-18-2024 MCHC (RBC) [Mass/Vol] MCHC [Mass/volume] by Automated count 32.0-35.0 [facility] MCV Auto (RBC) [Entitic vol] Ordered By: Lynnette Chapman on 08-18-2024 MCV (RBC) [Entitic vol] MCV [Entitic volume] by Automated count 80-100 [facility] Monocyte distribution width [Entitic volume] in Blood by AutomatedOrdered By: Lynnette Chapman on 08-18-2024 Monocyte distribution width Auto (Bld) [Entitic vol] Monocyte distribution width [Entitic volume] in Blood by Automated 0.00-20.00 [facility] Monocytes Auto (Bld) [#/Vol] Ordered By: Lynnette Chapman on 08-18-2024 Monocytes (Bld) [#/Vol] Automated blood monocyte count 0.0-0.8 [facility] Monocytes/100 WBC Auto (Bld) Ordered By: Lynnette Chapman on 08-18-2024 Monocytes/100 WBC (Bld) Automated monocyte % . [facility] Natriuretic peptide B [Mass/ Vol]Ordered By: Lynnette Chapman on 08-18-2024 Natriuretic peptide B (Bld) [Mass/Vol] BNP ser/plas 5-100 [facility] Neutrophils Auto (Bld) [#/Vo l]Ordered By: Lynnette Chapman on 08-18-2024 Neutrophils (Bld) [#/Vol] Neutrophils [#/volume] in Blood by Automated count 1.8-7.7 [facility] Neutrophils/100 WBC Auto (Bl d)Ordered By: Lynnette Chapman on 08-18-2024 Neutrophils/100 WBC (Bld) Automated neutrophil % . [facility] No Panel InformationOrdered By: Lynnette Chapman on 08-18-2024 Estimated GFR (CKD-EPI) > 60.0 mL/Min [facility] Pharmacy Creatinine Clearance (Chem 95.72 [facility] Nucleated erythrocytes [Pres ence] in Blood by Automated countOrdered By: Lynnette Chapman on 08-18-2024 Nucleated RBC Auto Ql (Bld) Nucleated erythrocytes [Presence] in Blood by Automated count 0-0.5 [facility] Platelet mean volume Auto (B ld) [Entitic vol]Ordered By: Lynnette Chapman on 08-18-2024 Platelet mean volume (Bld) [Entitic vol] Platelet mean volume [Entitic volume] in Blood by Automated count 6.3-10.7 [facility] Platelets Auto (Bld) [#/Vol] Ordered By: Lynnette Chapman on 08-18-2024 Platelets (Bld) [#/Vol] Platelets [#/volume] in Blood by Automated count 150-450 [facility] Potassium [Moles/volume] in Serum or PlasmaOrdered By: Lynnette Chapman on 08-18-2024 Potassium [Moles/Vol] Potassium [Moles/v olume] in Serum or Plasma 3.5-5.1 [facility] Protein [Mass/volume] in Ser um or PlasmaOrdered By: Lynnette Chapman on 08-18-2024 Protein [Mass/Vol] Protein [Mass/volume ] in Serum or Plasma 6.4-8.9 [facility] Prothrombin Time INRon 08-18 INR Coag (PPP) [Relative time] 1.0 {INR} Normal [facility] Comment on above: [...] heart valves: 3 - 4.5 PERFORMED BY: [place] [address] PATHOLOGIST TRACK INSPECTING SUPERVISOR JANA OLMEDO M.D. Performed By: #### H S TROP, LIPASE, PT, BMP, HEPATIC, CK, CBC, BNP #### [facility] [address] [place] [address] PT Coag (PPP) [Time] 11.7 s Normal 9.0-12.9 [facility] Comment on above: Result Comment: A he matocrit value greater than 55% may lead to inaccurate results in coagulation testing. Patients having hematocrit values >55% require a special collection tube for coagulation studies. Please contact the laboratory at [phone] for redraw instructions. Performed By: #### H S TROP, LIPASE, PT, BMP, HEPATIC, CK, CBC, BNP #### [facility] [address] [place] [address] Prothrombin time (PT)Ordered By: Lynnette Chapman on 08-18-2024 PT Coag (PPP) [Time] Prothrombin time (PT) 9.0- 12.9 [facility] Comment on above: A hematocrit value g reater than 55% may lead to inaccurate results in coagulation testing. Patients having hematocrit values >55% require a special collection tube for coagulation studies. Please contact the laboratory at [phone] for redraw instructions. RBC Auto (Bld) [#/Vol]Ordere d By: Lynnette Chapman on 08-18-2024 RBC (Bld) [#/Vol] Erythrocytes [#/volu me] in Blood by Automated count 3.60-5.00 [facility] Serum or plasma albumin/glob ulin mass ratioOrdered By: Lynnette Chapman on 08-18-2024 Albumin/Globulin [Mass ratio] Serum or plasma albumin/globulin mass ratio [facility] Serum or plasma anion gap de terminationOrdered By: Lynnette Chapman on 08-18-2024 Anion gap [Moles/Vol] Serum or plasma an ion gap determination 6.0-15.0 [facility] Serum or plasma non-glucuron idated bilirubin measurement (mass/volume)Ordered By: Lynnette Chapman on 08-18-2024 Bilirubin.indirect [Mass/Vol] Serum or plasma non-glucuronidated bilirubin measurement (mass/volume) [facility] Sodium [Moles/volume] in Ser um or PlasmaOrdered By: Lynnette Chapman on 08-18-2024 Sodium [Moles/Vol] Sodium [Moles/volume ] in Serum or Plasma 136-145 [facility] Troponin I High Sensitivityo n 08-18-2024 Troponin I High Sensitivity 4.7 pg/mL Normal 0.0-15.0 [facility] Comment on above: Result Comment: PERF ORMED BY: [facility] [address] [place] [address] PATHOLOGIST TRACK INSPECTING SUPERVISOR JANA OLMEDO M.D. Performed By: #### H S TROP ####[address] [address] [facility] Troponin I High Sensitivity 5.1 pg/mL Normal 0.0-15.0 [facility] Comment on above: Result Comment: PERF ORMED BY: [facility] [address] [place] [address] PATHOLOGIST TRACK INSPECTING SUPERVISOR JANA OLMEDO M.D. Performed By: #### H S TROP, LIPASE, PT, BMP, HEPATIC, CK, CBC, BNP ####[address] [address] [facility] Troponin I.cardiac [Mass/vol ume] in Serum or Plasma by Detection limit <= 0.01 ng/Ordered By: Lynnette Chapman on 08-18-2024 Troponin I.cardiac DL <= 0.01 ng/mL [Mass/Vol] Troponin I.cardiac [Mass/volume] in Serum or Plasma by Detection limit <= 0.01 ng/ 0.0-15.0 [facility] Urea nitrogen [Mass/volume] in Serum or PlasmaOrdered By: Lynnette Chapman on 08-18-2024 Urea nitrogen [Mass/Vol] Urea nitrogen [Mass/volume] in Serum or Plasma 7-25 [facility] WBC Auto (Bld) [#/Vol]Ordere d By: Lynnette Chapman on 08-18-2024 WBC (Bld) [#/Vol] Leukocytes [#/volume ] in Blood by Automated count 3.8-11.6 [facility] XR chest 2V*on 08-18-2024 XR chest 2V* [facility] [place] [address] XRay Report Signed Patient: Jose Alberto Saleem MR#: [id number] : 1965 Acct:[id number] Age/Sex: 59 / F ADM Date: 08/18/24 Loc: Room: [address] [place] [address] Type: ADM INOo Attending Dr: Donis Arroyo [...] Thelma Wick M.D.08/19/2024 12:10 AM Dictation Location: [place] [address] Transcribed By: [facility] 08/19/24 0010 Dictated By: Thelma Wick MD 08/18/24 0631 Signed By: 08/19/24 0010 Normal [facility] Reminderson 08-05-2024 Reminders Reminders From: Magdalena Longoria To: EU - Administrative; Sent: 08/05/2024 13:08:24 EST Show up: 03/01/2025 13:08:00 EDT Subject: 1 yr reminder Due Date/Time: 08/01/2025 13:08:00 EDT Reminder/Recall Patient needs scheduled with [facility] for a 1 yr f/u with [facility] Normal [facility] [place] Urology Office/Clinic Noteon 08-05-2024 Urology Office/Clinic Note [...] Myrbetriq from 25mg to 50mg qd Ordered: 17557 Measure Post Void residual urine and/or bladder capacity by US- non-imaging E&M of Est. Patient Moderate 30-39 Min 29612 Urnls Dip Stick Auto w/o Microscopy POC 96531 2. Urethral pain (R39.89: Other symptoms and [...] day(s), # 90 tab(s), Refills(s) 3, Pharmacy: [facility] [id number], 160, cm, 08/05/24 11:29:00 EST, Height/Length Dosing, 74.2, kg, 08/05/24 11:29:00 EST, Weight Dosing tamsulosin, 0.4 mg = 1 cap(s), Oral, Daily, # 90 cap(s), Refills(s) 3, Pharmacy: [facility], 160, cm, 08/05/24 11:29:00 EST, Height/Length Dosing, 74.2, kg, 08/05/24 11:29:00 EST, Weight Dosing Follow-up With When Contact Information JENNIFER MARTINO PA-C, URL Within 1 year Additional Instructions: Patient Education Kidney Stones, Mghg-xo-Rfze Problem List/Past Medical History Ongoing Anticoagulated Feeling (more content not included)... Normal [facility] Comment [...] wk f/u. Appointment due by 06/19/2024 in [place] with [facility] PT SCHEDULED JUL 03, 2024 Normal [facility] [place] Urology Office/Clinic [...] E&M of Est. Patient High 40-54 Min 46962 Urnls Dip Stick Auto w/o Microscopy POC 59421 2. OAB (overactive bladder) (N32.81: Overactive bladder) [...] E&M of Est. Patient High 40-54 Min 08308 3. Urethral pain (R39.89: Other symptoms and [...] E&M of Est. Patient High 40-54 Min 01713 Orders: estradiol topical, See Instructions, 42.5 gm, Refill(s) 6, apply a pea-sized amount vaginally and around the urethra nightly x 3 weeks, then 3x per week thereafter, [facility] #[id number], 160, cm, 04/10/24 15:13:00 EDT, Height/Length Dosing, 74, kg, 04/10/24 15:13... mirabegron, 25 mg = 1 tab(s), Oral, Daily, do not fill both mirabegron AND vibegron. only fill whichever has lower co-pay., X 30 day(s), # 30 tab(s), Refills(s) 11, Pharmacy: [facility] #[id number], 160, cm, 04/10/24 15:13:00 EDT, Height/Length Dosing, 74, k... vibegron, 75 mg = 1 tab(s), Oral, Daily, X 30 day(s), # 30 tab(s), Refills(s) 11, Pharmacy: [facility] #[id number], 160, cm, 04/10/24 15:13:00 EDT, Height/Length Dosing, 74, kg, 04/10/24 15:13:00 EDT, Weight Dosing Total time spent reviewing previous notes/results/external documents, preparing the chart, conducting the encounter with the patient and family, ordering tests/medications, and documenting the encounter was 40 minutes. Follow-up With When Contact Information JENNIFER MARTINO PA-C, URL Within 3 months [address] [place] [address] Additional Instructions: Patient Education Kidney Stones, Kfyj-pw-Xrkv Problem List/Past Medical History Ongoing Anticoagulated Feeling of incomplete b (more content not included)... Normal [facility] Comment on above: Result Comment: Elec tronically Signed By: JENNIFER MARTINO PA-C\.br\Date and Time Signed: 04/10/24 16:09 EDT Glucose Glucometer (BldC) [M ass/Vol]on 03-06-2024 Glucose [Mass/Vol] 79 mg/dL Normal 65-99 [facility] Reportson 01-23-2024 Lab Reports [id number]#1.00TIFF Normal [facility] Lab Reports [id number]#1.00TIFF Normal [facility] Lab Reportson 01-22-2024 Lab Reports [id number]#1.00TIFF Normal [facility] Lab Reports [id number]#1.00TIFF Normal [facility] Lab Reports [id number]#1.00TIFF Normal [facility] RAD - MISCon 01-22-2024 RAD - MISC [id number]#1.00TIFF Normal [facility] Surgical Pathology Reporton 06-18-2023 Surgical Pathology Report (NOTE) Path Number: [id number] -- Diagnosis -- ENDOMETRIAL CURETTINGS: -BENIGN ENDOMETRIAL [...] Microscopic Description Microscopic examination performed. Processing Lab: [facility] [address] [place] [id number] Interpretation Performed at [facility] [address] [place], [place] SURGICAL PATHOLOGY CONSULTATION Patient Name: JOSE ALBERTO SALEEM [facility] Rec: [id number] [facility] [employer] ANATOMIC PATHOLOGY [address] [place] [address]. [place], [place] [address] Normal [facility] NON OB TRANSVAGINALon US NON OB [...] Gaby Tello DO 06/05/23 Final result Normal [facility] Ceruloplasminon 12-12-2022 Ceruloplasmin 30.6 mg/dL 19.0-39.0 mg/dL [facility] Other Ferritinon 12-12-2022 Ferritin [Mass/Vol] 43.3852253 ng/mL Normal 11.0 -306.8 ng/mL [facility] Other Hepatitis A Antibody Totalon 12-12-2022 Hepatitis A Antibody Total Negative . [facility] Other Hepatitis B Surface Antibody on 12-12-2022 Hepatitis B Surface Antibody Non-Reactive Non Reactive [facility] Other Immunoglobulin Javi Immunoglobulin G 823 mg/dL 586-1602 mg/dL [facility] Other Liver-Kidney Microsomal Abon 12-12-2022 Liver-Kidney Microsomal Ab 1.1 0.0-20.0 [facility] Other Mitochondrial (M2) Antibodyo n 12-12-2022 Mitochondrial (M2) Antibody <20.0 0.0-20.0 [facility] Other Smooth Muscle Antibodyon Smooth Muscle Antibody 5 0-19 No rt [facility] Other MR MRCPon 11-10-[address] [facility] Other MR MRCP [facility] Other MR MRCP [address] [facility] [place] [address] [facility] Other MR MRCP MRI Report [facility] Other MR MRCP Signed [facility] Other MR MRCP Patient: Danika Saleem MR#: [id number] [facility] Other MR MRCP [address] [facility] Other MR MRCP : 1965 Acct:[id number] [facility] Other MR MRCP Age/Sex: 57 / F ADM Date: 11/10/22 [facility] Other MR MRCP Loc: MR Room: Type: [facility] Other MR MRCP Attending Dr: Evert salinas MD [facility] Other MR MRCP Copies to: Evert Bruno MD [facility] Other MR MRCP Ordering Provider: Marleny Bruno MD [facility] Other MR MRCP Date of Service: 11/10/22 [facility] Other MR MRCP MR/MR MRCP: Abdominal pain;Common bile duct dilatation;Elevated liver en [facility] Other MR MRCP MRCP [facility] Other MR MRCP CLINICAL DATA: [place] hayley lipase. Abnormal outside abdominal CT [facility] Other MR MRCP COMPARISON: CT abdom en 10/16/2022 [facility] Other MR MRCP Multiecho imaging of the abdomen was performed along with radial imaging of the biliary tree. [facility] Other MR MRCP The gallbladder surgically absent. There is no significant intrahepatic biliary dilatation. The [facility] Other MR MRCP common duct is sligh tly prominent measuring up to 6 mm. It tapers toward the ampulla. No in [facility] Other MR MRCP traluminal filling defects are identified to suggest choledocholithiasis. The pancreatic duct is [facility] Other MR MRCP also borderline prom inent measuring 2 - 3 mm. No intrahepatic masses are identified. No pancreatic [facility] Other MR MRCP abnormalities are no hayley. The spleen and adrenal glands are within normal limits. There is no [facility] Other MR MRCP hydronephrosis. Ther e are right renal cysts. There is no aortic aneurysm. No adenopathy or [facility] Other MR MRCP ascites is seen. The re is no dilated bowel within the ugxda-gy-pxnx. [facility] Other MR MRCP M R/MR MRCP [facility] Other MR MRCP IMPRESSION: [facility] Other MR MRCP SLIGHTLY PROMINENT C OMMON DUCT, WITHOUT CHOLEDOCHOLITHIASIS. THIS MAY RELATE TO PREVIOUS [facility] Other MR MRCP CHOLECYSTECTOMY. [facility] Other MR MRCP RIGHT RENAL CYSTS. [facility] Other MR MRCP NO OTHER SIGNIFICANT MRI FINDINGS. [facility] Other MR MRCP Impression dictated by: Thelma Wick M.D.11/10/2022 7:00 PM [facility] Other MR MRCP Dictation Location: [place] [address] [facility] Other MR MRCP Transcribed By: PWS 11/10/221899 [facility] Other MR MRCP Dictated By: Thelma Wick MD 11/10/221849 [facility] Other MR MRCP Signed By: [facility] Other MR MRCP 11/10/221899 [facility] Other Albumin [Mass/volume] in Ser um or PlasmaOrdered By: Evert Bruno on 11-01-2022 Albumin [Mass/Vol] 4.0 g/dL 3.2-5.5 [facility] Direct bilirubin measurement Ordered By: Imsara Bruno on 11-01-2022 Bilirubin.direct [Mass/Vol] 0.1 mg/dL 0.0-0.4 [facility] Globulin Calc (S) [Mass/Vol] Ordered By: Imsara Bruno on 11-01-2022 Globulin (S) [Mass/Vol] 2.5 g/dL [facility] Hepatic Panelon 11-01-2022 Albumin [Mass/Vol] 4.215871 g/dL Normal 3.2-5.5 g/dL [facility] Other ALT [Catalytic activity/Vol] 94 U/L High 10-60 U/L [facility] Other Bilirubin [Mass/Vol] 0.6677495 mg/dL Normal 0.3- 1.2 mg/dL [facility] Other Bilirubin.indirect [Mass/Vol] 0.7619561 mg/dL Normal 0.0-0.4 mg/dL [facility] Other Protein [Mass/Vol] 6.134821 g/dL Normal 6.1-7.9 g/dL [facility] Other Hepatic Panel 0.5 mg/dL [facility] Other Hepatic Panel 2.5 g/dL [facility] Other Protein [Mass/volume] in Ser um or PlasmaOrdered By: Evert Bruno on 11-01-2022 Protein [Mass/Vol] 6.5 g/dL 6.1-7.9 [facility] Serum or plasma alanine li otransferase measurement without P-5'-P (enzymatic activiOrdered By: Evert Bruno on 11-01-2022 ALT No additional P-5'-P [Catalytic activity/Vol] 94 U/L 10-60 [facility] Serum or plasma albumin/glob ulin mass ratioOrdered By: Evert Bruno on 11-01-2022 Albumin/Globulin [Mass ratio] 1.6 {ratio} [facility] Serum or plasma alkaline monster sphatase measurement (enzymatic activity/volume)Ordered By: Evert Bruno on 11-01-2022 ALP [Catalytic activity/Vol] 93 U/L 32-92 [facility] Serum or plasma aspartate am inotransferase measurement (enzymatic activity/volume)Ordered By: Evert Bruno on 11-01-2022 AST [Catalytic activity/Vol] 66 U/L 10-42 [facility] Serum or plasma non-glucuron idated bilirubin measurement (mass/volume)Ordered By: Evert Bruno on 11-01-2022 Bilirubin.indirect [Mass/Vol] 0.5 mg/dL [facility] Serum or plasma total biliru bin measurement (mass/volume)Ordered By: Evert Bruno on 11-01-2022 Bilirubin [Mass/Vol] 0.6 mg/dL 0.3-1.[address] [facility] [address] ABDOMEN WO/W CONon 2022 CT [...] JAE WILSON Date: 2022-10-17 08:23 Normal [facility] AMMONIAon 10-09-2022 Ammonia (P) [Moles/Vol] 10 umol/L Critically low 11-32 [facility] Comment on above: Performed By: #### A MY #### [facility] [address] [place] [address] Dr. Ayden Cam AMYLASEon 10-09-2022 Amylase [Catalytic activity/Vol] 144 U/L Critically high 25-115 [facility] Comment on above: Performed By: #### L IPA #### [facility] [address] [place] [address] Dr. Ayden Cam CBC AUTO DIFFon 10-09-2022 BASO # 0.0 103/ul Normal 0.0-0.1 [facility] Comment on above: Performed By: #### C BC #### [facility] [address] [place] [address] Dr. Ayden Cam Basophils/100 WBC (Bld) 0.2 % Normal 0.2-2.0 [facility] Comment on above: Performed By: #### C BC #### [facility] [address] [place] [address] Dr. Ayden Cam EO # 0.2 103/ul Normal 0.0-0.7 [facility] Comment on above: Performed By: #### C BC #### [facility] [address] [place] [address] Dr. Ayden Cam Eosinophils/100 WBC (Bld) 3.3 % Normal 0.9-7.0 [facility] Comment on above: Performed By: #### C BC #### [facility] [address] [place] [address] Dr. Ayden Cam Erythrocyte distribution width (RBC) [Ratio] 12.1 % Normal 11.0-15.0 [facility] Comment on above: Performed By: #### C BC #### [facility] [address] [place] [address] Dr. Ayden Cam Hematocrit (Bld) [Volume fraction] 40.0 % Normal 36.0-48.0 [facility] Comment on above: Performed By: #### C BC #### [facility] [address] [place] [address] Dr. Ayden Cam Hemoglobin (Bld) [Mass/Vol] 14.2 g/dL Normal 12.0-16.0 [facility] Comment on above: Performed By: #### C BC #### [facility] [address] [place] [address] Dr. Ayden Cam IG # 0.01 10e3/ul Normal 0.00-0.03 [facility] Comment on above: Performed By: #### C BC #### [facility] [address] [place] [address] Dr. Ayden Cam IG % 0.2 % Normal 0.0-0.5 [facility] Comment on above: Performed By: #### C BC #### [facility] [address] [place] [address] Dr. Ayden Cam LYMPH # 1.5 103/ul Normal 1.2-3.8 [facility] Comment on above: Performed By: #### C BC #### [facility] [address] [place] [address] Dr. Ayden Cam Lymphocytes/100 WBC (Bld) 24.2 % Normal 20.5-60.0 [facility] Comment on above: Performed By: #### C BC #### [facility] [address] [place] [address] Dr. Ayden Cam MANUAL DIFF REQ NO Normal [facility] Comment on above: Performed By: #### C BC #### [facility] [address] [place] [address] Dr. Ayden Cam MCH (RBC) [Entitic mass] 30.0 pg Normal 26.7-34.0 [facility] Comment on above: Performed By: #### C BC #### [facility] [address] [place] [address] Dr. Ayden Cam MCHC (RBC) [Mass/Vol] 35.5 g/dL Critically high 29.9-35.2 [facility] Comment on above: Performed By: #### C BC #### [facility] [address] [place] [address] Dr. Ayden Cam MCV (RBC) [Entitic vol] 84.4 fL Normal 81.0-99.0 [facility] Comment on above: Performed By: #### C BC #### [facility] [address] [place] [address] Dr. Ayden Cam MONO # 0.6 103/ul Normal 0.3-0.8 [facility] Comment on above: Performed By: #### C BC #### [facility] [address] [place] [address] Dr. Ayden Cam Monocytes/100 WBC (Bld) 10.3 % Normal 1.7-12.0 [facility] Comment on above: Performed By: #### C BC #### [facility] [address] [place] [address] Dr. Ayden Cam NEUT # 3.7 103/ul Normal 1.4-6.5 [facility] Comment on above: Performed By: #### C BC #### [facility] [address] [address] [address] Ayden Cam Neutrophils/100 WBC (Bld) 61.8 % Normal 43.0-75.0 [facility] Comment on above: Performed By: #### C BC #### [facility] [address] [place] [address] Dr. Ayden Cam Platelet mean volume (Bld) [Entitic vol] 9.0 fL Critically low 9.5-13.5 [facility] Comment on above: Performed By: #### C BC #### [facility] [address] [address] [address] Ayden Cam PLT 191 103/ul Normal 150-450 [facility] Comment on above: Performed By: #### C BC #### [facility] [address] [place] [address] Dr. Ayden Cam RBC 4.74 106/ul Normal 4.20-5.40 [facility] Comment on above: Performed By: #### C BC #### [facility] [address] [place] [address] Dr. Ayden Cam WBC 6.0 103/ul Normal 4.0-11.0 [facility] Comment on above: Performed By: #### C BC #### [facility] [address] [place] [address] Dr. Ayden Cam LIPASEon 10-09-2022 Lipase [Catalytic activity/Vol] 168.0 U/L Normal 73.0-393.0 [facility] Comment on above: Performed By: #### L ACT #### [facility] [address] [place] [address] Dr. Ayden Cam PROF 14(COMP METB)on 023 Albumin [Mass/Vol] 3.6 g/dL Normal 3.4-5.0 [facility] Comment on above: Performed By: #### L IPA #### [facility] [address] [place] [address] Dr. Ayden Cam Albumin/Globulin [Mass ratio] 1.1 {ratio} Normal [facility] Comment on above: Performed By: #### L IPA #### [facility] [address] [place] [address] Dr. Ayden Cam ALP [Catalytic activity/Vol] 93 U/L Normal 46-116 [facility] Comment on above: Performed By: #### L IPA #### [facility] [address] [address] [address] Ayden Cam ALT [Catalytic activity/Vol] 52 U/L Normal 14-59 [facility] Comment on above: Performed By: #### L IPA #### [facility] [address] [place] [address] Dr. Ayden Cam Anion gap [Moles/Vol] 10.2 mmol/L Normal [facility] Comment on above: Performed By: #### L IPA #### [facility] [address] [place] [address] Dr. Ayden Cam AST [Catalytic activity/Vol] 33 U/L Normal 15-37 [facility] Comment on above: Performed By: #### L IPA #### [facility] [address] [place] [address] Dr. Ayden Cam Bilirubin [Mass/Vol] 0.3 mg/dL Normal 0.2-1.0 [facility] Comment on above: Performed By: #### L IPA #### [facility] [address] [place] [address] Dr. Ayden Cam Calcium [Mass/Vol] 9.4 mg/dL Normal 8.5-10.1 [facility] Comment on above: Performed By: #### L IPA #### [facility] [address] [place] [address] Dr. Ayden Cam Chloride [Moles/Vol] 99 mmol/L Normal 98-107 [facility] Comment on above: Performed By: #### L IPA #### [facility] [address] [place] [address] Dr. Ayden Cam CO2 [Moles/Vol] 33.7 mmol/L Critically high 21.0-32.0 [facility] Comment on above: Performed By: #### L IPA #### [facility] [address] [place] [address] Dr. Ayden Cam Creatinine [Mass/Vol] 0.62 mg/dL Normal 0.55-1.02 [facility] Comment on above: Performed By: #### L IPA #### [facility] [address] [place] [address] Dr. Ayden Cam EGFR-AF MALAGASY >60 Normal >=60 [facility] Comment on above: Performed By: #### L IPA #### [facility] [address] [address] [address] Ayden Cam EGFR-NON AF MALAGASY >60 Normal >=60 [facility] Comment on above: Performed By: #### L IPA #### [facility] [address] [place] [address] Dr. Ayden Cam Globulin (S) [Mass/Vol] 3.4 g/dL Normal [facility] Comment on above: Performed By: #### L IPA #### [facility] [address] [place] [address] Dr. Ayden Cam Glucose [Mass/Vol] 105 mg/dL Normal 74-[address] [facility] Comment on above: Performed By: #### L IPA #### [facility] [address] [place] [address] Dr. Ayden Cam Potassium [Moles/Vol] 3.9 mmol/L Normal 3.5-5.1 [facility] Comment on above: Performed By: #### L IPA #### [facility] [address] [place] [address] Dr. Ayden Cam Protein [Mass/Vol] 7.0 g/dL Normal 6.4-8.[address] [facility] Comment on above: Performed By: #### L IPA #### [facility] [address] [address] [address] Ayden Cam Sodium [Moles/Vol] 139 mmol/L Normal 136-[address] [facility] Comment on above: Performed By: #### L IPA #### [facility] [address] [place] [address] Dr. Ayden Cam Urea nitrogen [Mass/Vol] 28.0 mg/dL Critically high 7.0-18.0 [facility] Comment on above: Performed By: #### L IPA #### [facility] [address] [place] [address] Dr. Ayden Cam Urea nitrogen/Creatinine [Mass ratio] 45.2 mg/mg Normal [facility] Comment on above: Performed By: #### L IPA #### [facility] [address] [place] [address] Dr. Ayden Cam AMMONIAon 10-06-2022 Ammonia (P) [Moles/Vol] 16 umol/L Normal 11-32 [facility] Comment on above: Performed By: #### A MM #### [facility] [address] [place] [address] Dr. Ayden Cam AMYLASEon 10-06-2022 Amylase [Catalytic activity/Vol] 189 U/L Critically high 25-115 [facility] Comment on above: Performed By: #### L IPA #### [facility] [address] [place] [address] Dr. Ayden Cam CBC AUTO DIFFon 10-06-2022 BASO # 0.0 103/ul Normal 0.0-0.1 [facility] Comment on above: Performed By: #### C BC #### [facility] [address] [place] [address] Dr. Ayden Cam Basophils/100 WBC (Bld) 0.2 % Normal 0.2-2.0 [facility] Comment on above: Performed By: #### C BC #### [facility] [address] [place] [address] Dr. Ayden Cam EO # 0.3 103/ul Normal 0.0-0.7 [facility] Comment on above: Performed By: #### C BC #### [facility] [address] [place] [address] Dr. Ayden Cam Eosinophils/100 WBC (Bld) 5.2 % Normal 0.9-7.0 [facility] Comment on above: Performed By: #### C BC #### [facility] [address] [place] [address] Dr. Ayden Cam Erythrocyte distribution width (RBC) [Ratio] 12.3 % Normal 11.0-15.0 [facility] Comment on above: Performed By: #### C BC #### [facility] [address] [place] [address] Dr. Ayden Cam Hematocrit (Bld) [Volume fraction] 36.9 % Normal 36.0-48.0 [facility] Comment on above: Performed By: #### C BC #### [facility] [address] [place] [address] Dr. Ayden Cam Hemoglobin (Bld) [Mass/Vol] 12.4 g/dL Normal 12.0-16.0 [facility] Comment on above: Performed By: #### C BC #### [facility] [address] [place] [address] Dr. Ayden Cam IG # 0.01 10e3/ul Normal 0.00-0.03 [facility] Comment on above: Performed By: #### C BC #### [facility] [address] [place] [address] Dr. Ayden Cam IG % 0.2 % Normal 0.0-0.5 [facility] Comment on above: Performed By: #### C BC #### [facility] [address] [place] [address] Dr. Ayden Cam LYMPH # 1.8 103/ul Normal 1.2-3.8 [facility] Comment on above: Performed By: #### C BC #### [facility] [address] [place] [address] Dr. Ayden Cam Lymphocytes/100 WBC (Bld) 31.3 % Normal 20.5-60.0 [facility] Comment on above: Performed By: #### C BC #### [facility] [address] [place] [address] Dr. Ayden Cam MANUAL DIFF REQ NO Normal [facility] Comment on above: Performed By: #### C BC #### [facility] [address] [place] [address] Dr. Ayden Cam MCH (RBC) [Entitic mass] 30.0 pg Normal 26.7-34.0 [facility] Comment on above: Performed By: #### C BC #### [facility] [address] [address] [address] Ayden Cam MCHC (RBC) [Mass/Vol] 33.6 g/dL Normal 29.9-35.2 [facility] Comment on above: Performed By: #### C BC #### [facility] [address] [address] [address] Ayden Cam MCV (RBC) [Entitic vol] 89.1 fL Normal 81.0-99.0 [facility] Comment on above: Performed By: #### C BC #### [facility] [address] [place] [address] Dr. Ayden Cam MONO # 0.6 103/ul Normal 0.3-0.8 [facility] Comment on above: Performed By: #### C BC #### [facility] [address] [place] [address] Dr. Ayden Cam Monocytes/100 WBC (Bld) 10.1 % Normal 1.7-12.0 [facility] Comment on above: Performed By: #### C BC #### [facility] [address] [place] [address] Dr. Ayden Cam NEUT # 3.1 103/ul Normal 1.4-6.5 [facility] Comment on above: Performed By: #### C BC #### [facility] [address] [place] [address] Dr. Ayden Cam Neutrophils/100 WBC (Bld) 53.0 % Normal 43.0-75.0 [facility] Comment on above: Performed By: #### C BC #### [facility] [address] [place] [address] Dr. Ayden Cam Platelet mean volume (Bld) [Entitic vol] 9.4 fL Critically low 9.5-13.5 [facility] Comment on above: Performed By: #### C BC #### [facility] [address] [place] [address] Dr. Ayden Cam PLT 153 103/ul Normal 150-450 [facility] Comment on above: Performed By: #### C BC #### [facility] [address] [address] [address] Ayden Cam RBC 4.14 106/ul Critically low 4.20-5.40 [facility] Comment on above: Performed By: #### C BC #### [facility] [address] [place] [address] Dr. Ayden Cam WBC 5.8 103/ul Normal 4.0-11.0 [facility] Comment on above: Performed By: #### C BC #### [facility] [address] [place] [address] Dr. Ayden Cam LIPASEon 10-06-2022 Lipase [Catalytic activity/Vol] 166.0 U/L Normal 73.0-393.0 [facility] Comment on above: Performed By: #### L IPA #### [facility] [address] [place] [address] Dr. Ayden Cam LIVER PROFILEon 10-06-2022 Albumin [Mass/Vol] 3.2 g/dL Critically low 3.4-5.0 [facility] Comment on above: Performed By: #### L IPA #### [facility] [address] [place] [address] Dr. Ayden Cam Albumin/Globulin [Mass ratio] 1.3 {ratio} Normal [facility] Comment on above: Performed By: #### L IPA #### [facility] [address] [place] [address] Dr. Ayden Cam ALP [Catalytic activity/Vol] 88 U/L Normal 46-116 [facility] Comment on above: Performed By: #### L IPA #### [facility] [address] [place] [address] Dr. Ayden Cam ALT [Catalytic activity/Vol] 66 U/L Critically high 14-59 [facility] Comment on above: Performed By: #### L IPA #### [facility] [address] [place] [address] Dr. Ayden Cam AST [Catalytic activity/Vol] 39 U/L Critically high 15-37 [facility] Comment on above: Performed By: #### L IPA #### [facility] [address] [address] [address] Adyen Cam BILI, CONJUGATED 0.1 mg/dL Normal 0.0-0.2 [facility] Comment on above: Performed By: #### L IPA #### [facility] [address] [address] [address] Ayden Cam Bilirubin [Mass/Vol] 0.4 mg/dL Normal 0.2-1.0 [facility] Comment on above: Performed By: #### L IPA #### [facility] [address] [address] [address] Ayden Cam Globulin (S) [Mass/Vol] 2.4 g/dL Normal [facility] Comment on above: Performed By: #### L IPA #### [facility] [address] [place] [address] Dr. Ayden Cam Protein [Mass/Vol] 5.6 g/dL Critically low 6.4-8.2 [facility] Comment on above: Performed By: #### L IPA #### [facility] [address] [address] [address] Ayden Cam PROF CHEM 8 (BAS METB)on Anion gap [Moles/Vol] 6.8 mmol/L Normal [facility] Comment on above: Performed By: #### L IPA #### [facility] [address] [address] [address] Ayden Cam Calcium [Mass/Vol] 8.6 mg/dL Normal 8.5-10.1 [facility] Comment on above: Performed By: #### L IPA #### [facility] [address] [address] [address] Ayden Cam Chloride [Moles/Vol] 102 mmol/L Normal 98-107 [facility] Comment on above: Performed By: #### L IPA #### [facility] [address] [address] [address] Ayden Cam CO2 [Moles/Vol] 32.6 mmol/L Critically high 21.0-32.0 [facility] Comment on above: Performed By: #### L IPA #### [facility] [address] [address] [address] Ayden Cam Creatinine [Mass/Vol] 0.61 mg/dL Normal 0.55-1.02 [facility] Comment on above: Performed By: #### L IPA #### [facility] [address] [address] [address] Ayden Cam EGFR-AF MALAGASY >60 Normal >=60 [facility] Comment on above: Performed By: #### L IPA #### [facility] [address] [address] [address] Ayden Cam EGFR-NON AF MALAGASY >60 Normal >=60 [facility] Comment on above: Performed By: #### L IPA #### [facility] [address] [address] [address] Ayden Cam Glucose [Mass/Vol] 91 mg/dL Normal 74-106 [facility] Comment on above: Performed By: #### L IPA #### [facility] [address] [address] [address] Ayden Cam Potassium [Moles/Vol] 3.4 mmol/L Critically low 3.5-5.1 [facility] Comment on above: Performed By: #### L IPA #### [facility] [address] [place] [address] Dr. Ayden Cam Sodium [Moles/Vol] 138 mmol/L Normal 136-[address] [facility] Comment on above: Performed By: #### L IPA #### [facility] [address] [address] [address] Ayden Cam Urea nitrogen [Mass/Vol] 13.0 mg/dL Normal 7.0-18.0 [facility] Comment on above: Performed By: #### L IPA #### [facility] [address] [address] [address] Ayden Cam Urea nitrogen/Creatinine [Mass ratio] 21.3 mg/mg Normal [facility] Comment on above: Performed By: #### L IPA #### [facility] [address] [place] [address] Dr. Ayden Cam AMMONIAon 10-05-2022 Ammonia (P) [Moles/Vol] 10 umol/L Critically low 11-32 [facility] Comment on above: Performed By: #### A MM #### [facility] [address] [place] [address] Dr. Ayden Cam AMYLASEon 10-05-2022 Amylase [Catalytic activity/Vol] 109 U/L Normal 25-115 [facility] Comment on above: Performed By: #### A MY #### [facility] [address] [place] [address] Dr. Ayden Cam CBC AUTO DIFFon 10-05-2022 BASO # 0.0 103/ul Normal 0.0-0.1 [facility] Comment on above: Performed By: #### L IPA #### [facility] [address] [place] [address] Dr. Ayden Cam Basophils/100 WBC (Bld) 0.3 % Normal 0.2-2.0 [facility] Comment on above: Performed By: #### L IPA #### [facility] [address] [place] [address] Dr. Ayden Cam EO # 0.3 103/ul Normal 0.0-0.7 [facility] Comment on above: Performed By: #### L IPA #### [facility] [address] [place] [address] Dr. Ayden Cam Eosinophils/100 WBC (Bld) 4.3 % Normal 0.9-7.0 [facility] Comment on above: Performed By: #### L IPA #### [facility] [address] [place] [address] Dr. Ayden Cam Erythrocyte distribution width (RBC) [Ratio] 12.2 % Normal 11.0-15.0 [facility] Comment on above: Performed By: #### L IPA #### [facility] [address] [place] [address] Dr. Ayden Cam Hematocrit (Bld) [Volume fraction] 38.9 % Normal 36.0-48.0 [facility] Comment on above: Performed By: #### L IPA #### [facility] [address] [address] [address] Ayden Cam Hemoglobin (Bld) [Mass/Vol] 12.8 g/dL Normal 12.0-16.0 [facility] Comment on above: Performed By: #### L IPA #### [facility] [address] [address] [address] Ayden Cam IG # 0.01 10e3/ul Normal 0.00-0.03 [facility] Comment on above: Performed By: #### L IPA #### [facility] [address] [place] [address] Dr. Ayden Cam IG % 0.2 % Normal 0.0-0.5 [facility] Comment on above: Performed By: #### L IPA #### [facility] [address] [place] [address] Dr. Ayden Cam LYMPH # 1.9 103/ul Normal 1.2-3.8 [facility] Comment on above: Performed By: #### L IPA #### [facility] [address] [place] [address] Dr. Ayden Cam Lymphocytes/100 WBC (Bld) 31.4 % Normal 20.5-60.0 [facility] Comment on above: Performed By: #### L IPA #### [facility] [address] [place] [address] Dr. Ayden Cam MANUAL DIFF REQ NO Normal [facility] Comment on above: Performed By: #### L IPA #### [facility] [address] [place] [address] Dr. Ayden Cam MCH (RBC) [Entitic mass] 29.6 pg Normal 26.7-34.0 [facility] Comment on above: Performed By: #### L IPA #### [facility] [address] [place] [address] Dr. Ayden Cam MCHC (RBC) [Mass/Vol] 32.9 g/dL Normal 29.9-35.2 [facility] Comment on above: Performed By: #### L IPA #### [facility] [address] [address] [address] Ayden Cam MCV (RBC) [Entitic vol] 89.8 fL Normal 81.0-99.0 [facility] Comment on above: Performed By: #### L IPA #### [facility] [address] [address] [address] Ayden Cam MONO # 0.6 103/ul Normal 0.3-0.8 [facility] Comment on above: Performed By: #### L IPA #### [facility] [address] [address] [address] Ayden Cam Monocytes/100 WBC (Bld) 10.1 % Normal 1.7-12.0 [facility] Comment on above: Performed By: #### L IPA #### [facility] [address] [place] [address] Dr. Ayden Cam NEUT # 3.2 103/ul Normal 1.4-6.5 [facility] Comment on above: Performed By: #### L IPA #### [facility] [address] [place] [address] Dr. Ayden Cam Neutrophils/100 WBC (Bld) 53.7 % Normal 43.0-75.0 [facility] Comment on above: Performed By: #### L IPA #### [facility] [address] [place] [address] Dr. Ayden Cam Platelet mean volume (Bld) [Entitic vol] 9.7 fL Normal 9.5-13.5 [facility] Comment on above: Performed By: #### L IPA #### [facility] [address] [place] [address] Dr. Ayden Cam PLT 168 103/ul Normal 150-450 [facility] Comment on above: Performed By: #### L IPA #### [facility] [address] [place] [address] Dr. Ayden Cam RBC 4.33 106/ul Normal 4.20-5.40 [facility] Comment on above: Performed By: #### L IPA #### [facility] [address] [place] [address] Dr. Ayden Cam WBC 6.0 103/ul Normal 4.0-11.0 [facility] Comment on above: Performed By: #### L IPA #### [facility] [address] [place] [address] Dr. Ayden Cam LIPASEon 10-05-2022 Lipase [Catalytic activity/Vol] 151.0 U/L Normal 73.0-393.0 [facility] Comment on above: Performed By: #### L IPA #### [facility] [address] [place] [address] Dr. Ayden Cam LIVER PROFILEon 10-05-2022 Albumin [Mass/Vol] 3.2 g/dL Critically low 3.4-5.0 [facility] Comment on above: Performed By: #### L ACT #### [facility] [address] [place] [address] Dr. Ayden Cam Albumin/Globulin [Mass ratio] 1.1 {ratio} Normal [facility] Comment on above: Performed By: #### L ACT #### [facility] [address] [place] [address] Dr. Ayden Cam ALP [Catalytic activity/Vol] 82 U/L Normal 46-116 [facility] Comment on above: Performed By: #### L ACT #### [facility] [address] [place] [address] Dr. Ayden Cam ALT [Catalytic activity/Vol] 70 U/L Critically high 14-59 [facility] Comment on above: Performed By: #### L ACT #### [facility] [address] [place] [address] Dr. Ayden Cam AST [Catalytic activity/Vol] 36 U/L Normal 15-37 [facility] Comment on above: Performed By: #### L ACT #### [facility] [address] [place] [address] Dr. Ayden Cam BILI, CONJUGATED 0.1 mg/dL Normal 0.0-0.2 [facility] Comment on above: Performed By: #### L ACT #### [facility] [address] [place] [address] Dr. Ayden Cam Bilirubin [Mass/Vol] 0.3 mg/dL Normal 0.2-1.0 [facility] Comment on above: Performed By: #### L ACT #### [facility] [address] [address] [address] Ayden Cam Globulin (S) [Mass/Vol] 3.0 g/dL Normal [facility] Comment on above: Performed By: #### L ACT #### [facility] [address] [address] [address] Ayden Cam Protein [Mass/Vol] 6.2 g/dL Critically low 6.4-8.2 [facility] Comment on above: Performed By: #### L ACT #### [facility] [address] [place] [address] Dr. Ayden Cam PROF CHEM 8 (BAS METB)on Anion gap [Moles/Vol] 9.5 mmol/L Normal [facility] Comment on above: Performed By: #### B MP #### [facility] [address] [place] [address] Dr. Ayden Cam Calcium [Mass/Vol] 8.9 mg/dL Normal 8.5-10.1 [facility] Comment on above: Performed By: #### B MP #### [facility] [address] [place] [address] Dr. Ayden Cam Chloride [Moles/Vol] 105 mmol/L Normal 98-107 [facility] Comment on above: Performed By: #### B MP #### [facility] [address] [place] [address] Dr. Ayden Cam CO2 [Moles/Vol] 29.6 mmol/L Normal 21.0-32.0 [facility] Comment on above: Performed By: #### B MP #### [facility] [address] [place] [address] Dr. Ayden Cam Creatinine [Mass/Vol] 0.56 mg/dL Normal 0.55-1.02 [facility] Comment on above: Performed By: #### B MP #### [facility] [address] [address] [address] Ayden Cam EGFR-AF MALAGASY >60 Normal >=60 [facility] Comment on above: Performed By: #### B MP #### [facility] [address] [address] [address] Ayden Cam EGFR-NON AF MALAGASY >60 Normal >=60 [facility] Comment on above: Performed By: #### B MP #### [facility] [address] [address] [address] Ayden Cam Glucose [Mass/Vol] 88 mg/dL Normal 74-106 [facility] Comment on above: Performed By: #### B MP #### [facility] [address] [place] [address] Dr. Ayden Cam Potassium [Moles/Vol] 4.1 mmol/L Normal 3.5-5.1 [facility] Comment on above: Performed By: #### B MP #### [facility] [address] [place] [address] Dr. Ayden Cam Sodium [Moles/Vol] 140 mmol/L Normal 136-[address] [facility] Comment on above: Performed By: #### B MP #### [facility] [address] [place] [address] Dr. Ayden Cam Urea nitrogen [Mass/Vol] 15.0 mg/dL Normal 7.0-18.0 [facility] Comment on above: Performed By: #### B MP #### [facility] [address] [place] [address] Dr. Ayden Cam Urea nitrogen/Creatinine [Mass ratio] 26.8 mg/mg Normal [facility] Comment on above: Performed By: #### B MP #### [facility] [address] [place], [place] [id number] Dr. Ayden Cam US Jhony 10-05-2022 US [...] RONAN TORIBIO Date: 2022-10-05 09:52 Normal [facility] XR KUB 1 VIEWon 10-05-2022 XR [...] RONAN TORIBIO Date: 2022-10-05 09:55 Normal [facility] AMYLASEon 10-04-2022 Amylase [Catalytic activity/Vol] 124 U/L Critically high 25-115 [facility] Comment on above: Performed By: #### L IPA, COLE, CMP #### [facility] [address] [address] [address] Ayden Cam CBC AUTO DIFFon 10-04-2022 BASO # 0.0 103/ul Normal 0.0-0.1 [facility] Comment on above: Performed By: #### L IPA #### [facility] [address] [address] [address] Ayden Cam Basophils/100 WBC (Bld) 0.3 % Normal 0.2-2.0 [facility] Comment on above: Performed By: #### L IPA #### [facility] [address] [place] [address] Dr. Ayden Cam EO # 0.2 103/ul Normal 0.0-0.7 [facility] Comment on above: Performed By: #### L IPA #### [facility] [address] [place] [address] Dr. Ayden Cam Eosinophils/100 WBC (Bld) 2.9 % Normal 0.9-7.0 [facility] Comment on above: Performed By: #### L IPA #### [facility] [address] [place] [address] Dr. Ayden Cam Erythrocyte distribution width (RBC) [Ratio] 12.3 % Normal 11.0-15.0 [facility] Comment on above: Performed By: #### L IPA #### [facility] [address] [place] [address] Dr. Ayden Cam Hematocrit (Bld) [Volume fraction] 42.0 % Normal 36.0-48.0 [facility] Comment on above: Performed By: #### L IPA #### [facility] [address] [place] [address] Dr. Ayden Cam Hemoglobin (Bld) [Mass/Vol] 14.3 g/dL Normal 12.0-16.0 [facility] Comment on above: Performed By: #### L IPA #### [facility] [address] [place] [address] Dr. Ayden Cam IG # 0.02 10e3/ul Normal 0.00-0.03 [facility] Comment on above: Performed By: #### L IPA #### [facility] [address] [place] [address] Dr. Ayden Cam IG % 0.3 % Normal 0.0-0.5 [facility] Comment on above: Performed By: #### L IPA #### [facility] [address] [place] [address] Dr. Ayden Cam LYMPH # 1.7 103/ul Normal 1.2-3.8 [facility] Comment on above: Performed By: #### L IPA #### [facility] [address] [place] [address] Dr. Ayden Cam Lymphocytes/100 WBC (Bld) 22.5 % Normal 20.5-60.0 [facility] Comment on above: Performed By: #### L IPA #### [facility] [address] [place] [address] Dr. Ayden Cam MANUAL DIFF REQ NO Normal [facility] Comment on above: Performed By: #### L IPA #### [facility] [address] [place] [address] Dr. Ayden Cam MCH (RBC) [Entitic mass] 30.1 pg Normal 26.7-34.0 [facility] Comment on above: Performed By: #### L IPA #### [facility] [address] [place] [address] Dr. Ayden Cam MCHC (RBC) [Mass/Vol] 34.0 g/dL Normal 29.9-35.2 [facility] Comment on above: Performed By: #### L IPA #### [facility] [address] [place] [address] Dr. Ayden Cam MCV (RBC) [Entitic vol] 88.4 fL Normal 81.0-99.0 [facility] Comment on above: Performed By: #### L IPA #### [facility] [address] [place] [address] Dr. Ayden Cam MONO # 0.5 103/ul Normal 0.3-0.8 [facility] Comment on above: Performed By: #### L IPA #### [facility] [address] [place] [address] Dr. Ayden Cam Monocytes/100 WBC (Bld) 6.0 % Normal 1.7-12.0 [facility] Comment on above: Performed By: #### L IPA #### [facility] [address] [place] [address] Dr. Ayden Cam NEUT # 5.2 103/ul Normal 1.4-6.5 [facility] Comment on above: Performed By: #### L IPA #### [facility] [address] [place] [address] Dr. Ayden Cam Neutrophils/100 WBC (Bld) 68.0 % Normal 43.0-75.0 [facility] Comment on above: Performed By: #### L IPA #### [facility] [address] [place] [address] Dr. Ayden Cam Platelet mean volume (Bld) [Entitic vol] 9.6 fL Normal 9.5-13.5 [facility] Comment on above: Performed By: #### L IPA #### [facility] [address] [place] [address] Dr. Ayden Cam PLT 183 103/ul Normal 150-450 [facility] Comment on above: Performed By: #### L IPA #### [facility] [address] [place] [address] Dr. Ayden Cam RBC 4.75 106/ul Normal 4.20-5.40 [facility] Comment on above: Performed By: #### L IPA #### [facility] [address] [place] [address] Dr. Ayden Cam WBC 7.6 103/ul Normal 4.0-11.0 [facility] Comment on above: Performed By: #### L IPA #### [facility] [address] [place] [address] Dr. Ayden Cam Covid-19 PCR ([facility])on SARS-CoV-2 (COVID-19) RNA LOWELL+probe Ql (Unsp spec) Not detected Normal NOT DETECTED [facility] Comment on above: Result Comment: When [...] for this test is supported by the [place]'s declaration that [...] used). Performed By: #### L IPA #### [facility] [address] [place] [address] Dr. Ayden Cam ER URINE PROFILEon 3 Bilirubin Ql (U) Negative Normal NEGATIVE [facility] Comment on above: Performed By: #### L ACT #### [facility] [address] [place] [address] Dr. Ayden aCm Clarity (U) CLEAR Normal CLEAR [facility] Comment on above: Performed By: #### L ACT #### [facility] [address] [place] [address] Dr. Ayden Cam Color (U) LT. YELLOW Normal YELLOW [facility] Comment on above: Performed By: #### L ACT #### [facility] [address] [place] [address] Dr. Ayden Cam ERUAHD A micrscopic examina tion will be performed if indicated. Normal [facility] Comment on above: Performed By: #### L ACT #### [facility] [address] [place] [address] Dr. Ayden Cam Glucose Ql (U) Negative Normal NEGATIVE [facility] Comment on above: Performed By: #### L ACT #### [facility] [address] [place] [address] Dr. Ayden Cam Hemoglobin Ql (U) Negative Normal NEGATIVE [facility] Comment on above: Performed By: #### L ACT #### [facility] [address] [place] [address] Dr. Ayden Cam Ketones Ql (U) Negative Normal NEGATIVE [facility] Comment on above: Performed By: #### L ACT #### [facility] [address] [place] [address] Dr. Ayden Cam LEUKOCYTES Negative Normal NEGATIVE [facility] Comment on above: Performed By: #### L ACT #### [facility] [address] [place] [address] Dr. Adyen Cam Nitrite Ql (U) Negative Normal NEGATIVE [facility] Comment on above: Performed By: #### L ACT #### [facility] [address] [place] [address] Dr. Ayden Cam pH (U) 8.5 [pH] Normal 5-9 [facility] Comment on above: Performed By: #### L ACT #### [facility] [address] [place] [address] Dr. Ayden Cam SPEC GRAVITY 1.015 Normal 1.005-<=1. 025 [facility] Comment on above: Performed By: #### L ACT #### [facility] [address] [place] [address] Dr. Ayden Cam UA PROTEIN Negative Normal NEGATIVE/ TRACE [facility] Comment on above: Performed By: #### L ACT #### [facility] [address] [place] [address] Dr. Ayden Cam UR MICRO IND NOT INDICATED Normal [facility] Comment on above: Performed By: #### L ACT #### [facility] [address] [place] [address] Dr. Ayden Cam Urobilinogen Qn (U) 0.2 {Peggy'U}/dL Normal 0.2 - 1. 0 [facility] Comment on above: Performed By: #### L ACT #### [facility] [address] [place] [address] Dr. Ayden Cam LACTATE/LACTIC ACIDon 2022 Lactate [Moles/Vol] 0.8 mmol/L Normal 0.4-1.[address] [facility] Comment on above: Performed By: #### L ACT #### [facility] [address] [place] [address] Dr. Ayden Cam LIPASEon 10-04-2022 Lipase [Catalytic activity/Vol] 170.0 U/L Normal 73.0-393.0 [facility] Comment on above: Performed By: #### L ACT #### [facility] [address] [place] [address] Dr. Ayden Cam PROF 14(COMP METB)on 023 Albumin [Mass/Vol] 3.8 g/dL Normal 3.4-5.0 [facility] Comment on above: Performed By: #### L ACT #### [facility] [address] [place] [address] Dr. Ayden Cam Albumin/Globulin [Mass ratio] 1.1 {ratio} Normal [facility] Comment on above: Performed By: #### L ACT #### [facility] [address] [address] [address] Ayden Cam ALP [Catalytic activity/Vol] 101 U/L Normal 46-116 [facility] Comment on above: Performed By: #### L ACT #### [facility] [address] [place] [address] Dr. Ayden Cam ALT [Catalytic activity/Vol] 94 U/L Critically high 14-59 [facility] Comment on above: Performed By: #### L ACT #### [facility] [address] [place] [address] Dr. Ayden Cam Anion gap [Moles/Vol] 11.1 mmol/L Normal [facility] Comment on above: Performed By: #### L ACT #### [facility] [address] [place] [address] Dr. Ayden Cam AST [Catalytic activity/Vol] 59 U/L Critically high 15-37 [facility] Comment on above: Performed By: #### L ACT #### [facility] [address] [place] [address] Dr. Ayden Cam Bilirubin [Mass/Vol] 0.3 mg/dL Normal 0.2-1.0 [facility] Comment on above: Performed By: #### L ACT #### [facility] [address] [place] [address] Dr. Ayden Cam Calcium [Mass/Vol] 9.5 mg/dL Normal 8.5-10.1 [facility] Comment on above: Performed By: #### L ACT #### [facility] [address] [place] [address] Dr. Ayden Cam Chloride [Moles/Vol] 99 mmol/L Normal 98-107 [facility] Comment on above: Performed By: #### L ACT #### [facility] [address] [address] [address] Ayden Cam CO2 [Moles/Vol] 29.7 mmol/L Normal 21.0-32.0 [facility] Comment on above: Performed By: #### L ACT #### [facility] [address] [address] [address] Ayden Cam Creatinine [Mass/Vol] 0.61 mg/dL Normal 0.55-1.02 [facility] Comment on above: Performed By: #### L ACT #### [facility] [address] [address] [address] Ayden Cam EGFR-AF MALAGASY >60 Normal >=60 [facility] Comment on above: Performed By: #### L ACT #### [facility] [address] [address] [address] Ayden Cam EGFR-NON AF MALAGASY >60 Normal >=60 [facility] Comment on above: Performed By: #### L ACT #### [facility] [address] [address] [address] Ayden Cam Globulin (S) [Mass/Vol] 3.4 g/dL Normal [facility] Comment on above: Performed By: #### L ACT #### [facility] [address] [place] [address] Dr. Ayden Cam Glucose [Mass/Vol] 111 mg/dL Critically high 74-106 [facility] Comment on above: Performed By: #### L ACT #### [facility] [address] [address] [address] Ayden Cam Potassium [Moles/Vol] 3.8 mmol/L Normal 3.5-5.1 [facility] Comment on above: Performed By: #### L ACT #### [facility] [address] [address] [address] yAden Cam Protein [Mass/Vol] 7.2 g/dL Normal 6.4-8.2 [facility] Comment on above: Performed By: #### L ACT #### [facility] [address] [address] [address] Ayden Cam Sodium [Moles/Vol] 136 mmol/L Normal 136-145 [facility] Comment on above: Performed By: #### L ACT #### [facility] [address] [address] [address] Ayden Cam Urea nitrogen [Mass/Vol] 23.0 mg/dL Critically high 7.0-18.0 [facility] Comment on above: Performed By: #### L ACT #### [facility] [address] [address] [address] Ayden Cam Urea nitrogen/Creatinine [Mass ratio] 37.7 mg/mg Normal [facility] Comment on above: Performed By: #### L ACT #### [facility] [address] [place] [address] Dr. Ayden Cam TROPONIN, HIGH SENSITIVITYon 10-04-2022 HSTROP 8.9 pg/mL Normal 4.0-51.3 [facility] Comment on above: Result Comment: CUT- OFF POINTS HAVE BEEN ESTABLISHED BASED ON THE FOURTH UNIVERSAL DEFINITIONS OF MYOCARDIAL INFARCTION. THE UPPER REFERENCE LIMIT (URL) OF TROPONIN, DEFINED THE 99TH PERCENTILE OF cTnI DISTRIBUTION IN A REFERENCE POPULATION, HAS BEEN CONFIRMED THE DECISION THRESHOLD FOR DE DIAGNOSIS. Performed By: #### L ACT #### [facility] [address] [place] [address] Dr. Ayden Cam LIPID PROFILEon 09-19-2022 CHOL-HDL RATIO NORM SEE BELOW Normal [facility] Comment on above: Result Comment: 3.3 - 4.4 LOW RISK 4.4 - 7.1 AVERAGE RISK 7.1 - 11.0 MODERATE RISK >11.0 HIGH RISK Performed By: #### L IPA #### [facility] [address] [place] [address] Dr. Ayden Cam Cholesterol [Mass/Vol] 116 mg/dL Normal <=200 [facility] Comment on above: Performed By: #### L IPA #### [facility] [address] [address] [address] Ayden Cam Cholesterol in HDL [Mass/Vol] 59 mg/dL Normal 40-60 [facility] Comment on above: Performed By: #### L IPA #### [facility] [address] [address] [address] Ayden Cam Cholesterol in LDL [Mass/Vol] 34.0 mg/dL Normal [facility] Comment on above: Performed By: #### L IPA #### [facility] [address] [place] [address] Dr. Ayden Cam Cholesterol.total/Chol esterol in HDL [Mass ratio] 2.0 {ratio} Normal [facility] Comment on above: Performed By: #### L IPA #### [facility] [address] [place] [address] Dr. Ayden Cam HDL NORMAL > or = 60 mg/dl - LO W CARDIOVASCULAR RISK <40 mg/dl - HIGH CARDIOVASCULAR RISK Normal [facility] Comment on above: Performed By: #### L IPA #### [facility] [address] [place] [address] Dr. Ayden Cam LDL CALC NORMAL SEE BELOW Normal [facility] Comment on above: Result Comment: <100 mg/dl OPTIMAL 100 - 129 mg/dl NEAR OR ABOVE OPTIMAL 130 - 159 mg/dl BORDERLINE HIGH 160 - 189 mg/dl HIGH >190 mg/dl VERY HIGH Performed By: #### L IPA #### [facility] [address] [place] [address] Dr. Ayden Cam Triglyceride [Mass/Vol] 115 mg/dL Normal <=150 [facility] Comment on above: Performed By: #### L IPA #### [facility] [address] [place] [address] Dr. Ayden Cam VLDL CALC 23.0 mg/dL Normal [facility] Comment on above: Performed By: #### L IPA #### [facility] [address] [place] [address] Dr. Ayden Cam VITAMIN D 25 OHon 09-19-2022 VIT D 25-OH 89.3 ng/mL Normal [facility] Comment on above: Performed By: #### V ITAD #### [facility] [address] [place] [address] Dr. Ayden Cam VIT D RANGES SEE BELOW Normal [facility] Comment on above: Result Comment: <20 ng/mL Vit D deficient 20 - <30 ng/mL Vit D insufficient 30 - 100 ng/mL Vit D sufficient >100 ng/mL Potential Toxicity Performed By: #### V ITAD #### [facility] [address] [address] [address] Ayden Cam Office Visit (Cardiology)on 08-15-2022 Follow-up visit Diagnoses/Problems Assessed Atherosclerosis of coronary artery of [place] heart without angina pectoris (414.01) (I25.10) History of coronary artery bypass graft (V45.81) (Z95.1) Ischemic cardiomyopathy (414.8) (I25.5) Hyperlipidemia (272.4) (E78.5) Essential hypertension, benign (401.1) (I10) Never a smoker Overweight with body mass index (BMI) of 26 to 26.9 in adult (278.02,V85.22) (E66.3,Z68.26) Paroxysmal SVT (supraventricular tachycardia) (427.0) (I47.1) Orders Atherosclerosis of coronary artery of [place] heart without angina pectoris, Essential hypertension, benign, Hyperlipidemia Basic Metabolic Panel; Status:Active - Retrospective Authorization; Requested for:[id number]; Lipid Panel; Status:Active - Retrospective Authorization; Requested for:[id number]; Overweight with body mass index (BMI) of 26 to 26.9 in adult Healthy Weight Tips; Status:Complete - Retrospective Authorization; Done: [id number] Some eating tips that can help you lose weight.; Status:Complete - Retrospective Authorization; Done: [id number] SocHx: Never a smoker Tobacco Use Screening; Status:Complete; Done: [id number] Patient Instructions Please bring all medicines, vitamins, [...] She has a history of prior inferior DE, prior PCI with subsequent three-vessel CABG and [...] CHEST PAIN.CALL 911 IF PAIN PERSISTS. Nyamyc [id number] UNIT/GM External Powderapply topically to affected area [...] no s (more content not included)... 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 021 Tobacco use status CPHS b) No -[facility] [facility] 250 DO Work Phone: Vital Signs Date Time Vital Sign Value Performing Clinician Facility 05-15-2025 11:45-0400 Body height 160 cm Raji RINALDI Work Phone: [facility] 05-15-2025 11:45-0400 Body mass index (BMI) [Ratio] 30.82 kg/m2 Raji RINALDI Work Phone: [facility] 05-15-2025 11:45-0400 Body weight 78.93 kg Raji RINALDI Work Phone: [facility] 09-05-2024 09:53-0500 Body height 160 cm Celso Garibay DO Work Phone: [facility] 09-05-2024 09:53-0500 Body mass index (BMI) [Ratio] 30.11 kg/m2 Celso Garibay DO Work Phone: [facility] 09-05-2024 09:53-0500 Body weight 77.11 kg Celso Garibay DO Work Phone: [facility] 09-05-2024 09:53-0500 Diastolic blood pressure 80 mm[Hg] Celso Garibay DO Work Phone: [facility] 09-05-2024 09:53-0500 Heart rate 66 /min Celso Garibay DO Work Phone: [facility] 09-05-2024 09:53-0500 Systolic blood pressure 118 mm[Hg] Celso Garibay DO Work Phone: [facility] 08-19-2024 01:03-0500 Diastolic blood pressure 69 mm[Hg] Ashley Grigsby MD Work Phone: [facility] 08-19-2024 01:03-0500 Heart rate 60 /min Ashley Grigsby MD Work Phone: [facility] 08-19-2024 01:03-0500 Respiratory rate 20 /min Ashley Grigsby MD Work Phone: [facility] 08-19-2024 01:03-0500 SaO2% (BldA) [Mass fraction] 96 % Ashley Grigsby MD Work Phone: [facility] 08-19-2024 01:03-0500 Systolic blood pressure 130 mm[Hg] Ashley Grigsby MD Work Phone: [facility] 08-18-2024 20:55-0500 Body height 160.02 cm Ashley Grigsby MD Work Phone: [facility] 08-18-2024 20:55-0500 Body temperature 97.4 [degF] Ashley Grigsby MD Work Phone: [facility] 08-18-2024 20:55-0500 Body weight 78.5 kg Ashley Grigsby MD Work Phone: [facility] 08-13-2024 12:21-0500 Body height 160 cm Celso Garibay DO Work Phone: [facility] 08-13-2024 12:21-0500 Body mass index (BMI) [Ratio] 30.47 kg/m2 Celso Garibay DO Work Phone: [facility] 08-13-2024 12:21-0500 Body weight 78.02 kg Celso Garibay DO Work Phone: [facility] 08-13-2024 12:21-0500 Diastolic blood pressure 94 mm[Hg] Celso Garibay DO Work Phone: [facility] 08-13-2024 12:21-0500 Heart rate 76 /min Celso Garibay DO Work Phone: [facility] 08-13-2024 12:21-0500 Systolic blood pressure 138 mm[Hg] Celso Garibay DO Work Phone: [facility] 08-05-2024 11:08-0500 Blood Pressure Location [facility] 08-05-2024 11:08-0500 Body temperature 98.6 [degF] [place] [facility] 08-05-2024 11:08-0500 Diastolic blood pressure 80 mm[Hg] [place] [facility] 08-05-2024 11:08-0500 Heart rate 68 /min [place] [facility] 08-05-2024 11:08-0500 Respiratory rate 16 /min [place] [facility] 08-05-2024 11:08-0500 Systolic blood pressure 131 mm[Hg] [place] [facility] 04-10-2024 15:08-0400 Blood Pressure Location [place] [facility] 04-10-2024 15:08-0400 Diastolic blood pressure 80 mm[Hg] [place] [facility] 04-10-2024 15:08-0400 Heart rate 75 /min JENNIFER MARTINO [facility] 04-10-2024 15:08-0400 Respiratory rate 16 /min JENNIFER MARTINO [facility] 04-10-2024 15:08-0400 Systolic blood pressure 131 mm[Hg] JENNIFER MARTINO [facility] 02-29-2024 11:15-0400 Body height 160 cm [facility] 02-29-2024 11:15-0400 Body mass index (BMI) [Ratio] 29.58 kg/m2 [facility] 02-29-2024 11:15-0400 Body weight 75.[address] 01-17-2024 16:03-0400 Body height 161.3 cm Stephanie Berger MD PhD Work Phone: [facility] 01-17-2024 16:03-0400 Body mass index (BMI) [Ratio] 30.16 kg/m2 Stephanie Berger MD PhD Work Phone: [facility] 01-17-2024 16:03-0400 Body weight 78.47 kg Stephanie Berger MD PhD Work Phone: [facility] 08-14-2023 15:29-0500 Body height 161.3 cm Celso Garibay DO Work Phone: [facility] 08-14-2023 15:29-0500 Body mass index (BMI) [Ratio] 28.07 kg/m2 Celso Garibay DO Work Phone: [facility] 08-14-2023 15:29-0500 Body weight 73.03 kg Celso Garibay DO Work Phone: [facility] 08-14-2023 15:29-0500 Diastolic blood pressure 80 mm[Hg] Celso Garibay DO Work Phone: [facility] 08-14-2023 15:29-0500 Heart rate 56 /min Celso Garibay DO Work Phone: [facility] 08-14-2023 15:29-0500 Systolic blood pressure 138 mm[Hg] Celso Garibay DO Work Phone: [facility] 06-18-2023 15:15-0400 Diastolic blood pressure 78 mm[Hg] Gaby Tello DO Work Phone: [employer] 06-18-2023 15:15-0400 Heart rate 70 /min Gaby Tello DO Work Phone: [employer] 06-18-2023 15:15-0400 Respiratory rate 18 /min Gaby Tello DO Work Phone: [employer] 06-18-2023 15:15-0400 SaO2% (BldA) [Mass fraction] 96 % Gaby Tello DO Work Phone: [employer] 06-18-2023 15:15-0400 Systolic blood pressure 173 mm[Hg] Gaby Tello DO Work Phone: [employer] 06-18-2023 14:36-0400 Body temperature 97 [degF] Gaby Novoag DO Work Phone: [employer] 06-18-2023 13:30-0400 Body height 160 cm Gaby Novoag DO Work Phone: [employer] 06-18-2023 13:30-0400 Body mass index (BMI) [Ratio] 27.03 kg/m2 Gaby Novoag DO Work Phone: [employer] 06-18-2023 13:30-0400 Body weight 69.22 kg Gaby Novoag DO Work Phone: [employer] 11-02-2022 15:02-0500 Diastolic blood pressure 84 mm[Hg] MD Ashley Grigsby Work Phone: [facility] 11-02-2022 15:02-0500 Heart rate 78 /min MD Ashley Grigsby Work Phone: [facility] 11-02-2022 15:02-0500 Respiratory rate 18 /min MD Ashley Grigsby Work Phone: [facility] 11-02-2022 15:02-0500 SaO2% (BldA) [Mass fraction] 100 % MD Ashley Grigsby Work Phone: [facility] 11-02-2022 15:02-0500 Systolic blood pressure 161 mm[Hg] MD Ashley Grigsby Work Phone: [facility] 11-02-2022 13:20-0500 Body height 160.02 cm MD Ashley Grigsby Work Phone: [facility] 11-02-2022 13:20-0500 Body temperature 98.2 [degF] MD Ashley Grigsby Work Phone: [facility] 11-02-2022 13:20-0500 Body weight 60.78 kg MD Ashley Grigsby Work Phone: [facility] 11-01-2022 13:26-0500 Diastolic blood pressure 61 mm[Hg] MD Ashley Grigsby Work Phone: [facility] 11-01-2022 13:26-0500 Heart rate 59 /min MD Ashley Grigsby Work Phone: [facility] 11-01-2022 13:26-0500 Respiratory rate 20 /min MD Ashley Grigsby Work Phone: [facility] 11-01-2022 13:26-0500 SaO2% (BldA) [Mass fraction] 99 % MD Ashley Grigsby Work Phone: [facility] 11-01-2022 13:26-0500 Systolic blood pressure 124 mm[Hg] MD Ashley Grigsby Work Phone: [facility] 11-01-2022 10:53-0500 Body height 160.02 cm MD Ashley Grigsby Work Phone: [facility] 11-01-2022 10:53-0500 Body temperature 97.7 [degF] MD Ashley Grigsby Work Phone: [facility] 11-01-2022 10:53-0500 Body weight 61.68 kg MD Ashley Grigsby Work Phone: [facility] 10-24-2022 15:45-0500 Body height 159.38 cm Imad Asaad Other [facility] [employer] Other 10-24-2022 15:45-0500 Body mass index (BMI) [Ratio] 24.28 kg/m2 Imad Asaad Other [facility] [employer] Other 10-24-2022 15:45-0500 Body weight 61.69 kg Imad Asaad Other [facility] [employer] Other 10-24-2022 15:45-0500 Diastolic blood pressure 94 mm[Hg] Imad Asaad Other [facility] [employer] Other 10-24-2022 15:45-0500 Systolic blood pressure 133 mm[Hg] Imad Asaad Other [facility] [employer] Other 09-19-2022 00:00-0500 34 1 Ashley M Hoy Work Phone: [facility] 250 DO Work Phone: Comment on above: [facility] 08-15-2022 15:23-0500 Body height 160.02 cm Ashley M Hoy Work Phone: [facility] 250 DO Work Phone: 08-15-2022 15:23-0500 Body mass index (BMI) [Ratio] 26.22 kg/m2 Ashley Tyree Hoy Work Phone: [facility] 250 DO Work Phone: 08-15-2022 15:23-0500 Body surface area Derived from formula 1.7 m2 Ashley Tyree Hoy Work Phone: [facility] 250 DO Work Phone: 08-15-2022 15:23-0500 Body weight 67.13 kg Ashley Tyree Hoy Work Phone: [facility] 250 DO Work Phone: 08-15-2022 15:23-0500 Diastolic blood pressure 82 mm[Hg] Ashley Tyree Hoy Work Phone: [facility] 250 DO Work Phone: 08-15-2022 15:23-0500 Heart rate 80 /min Ashley Tyree Hoy Work Phone: [facility] 250 DO Work Phone: 08-15-2022 15:23-0500 Systolic blood pressure 132 mm[Hg] Ashley Tyree Hoy Work Phone: [facility] 250 DO Work Phone: 06-02-2022 08:12-0400 Blood Pressure Location Santiago CARRILLO [facility] 06-02-2022 08:12-0400 Diastolic blood pressure 86 mm[Hg] Santiago CARRILLO [facility] 06-02-2022 08:12-0400 Heart rate 60 /min Santiago CARRILLO [facility] 06-02-2022 08:12-0400 Respiratory rate 16 /min Santiago CARRILLO [facility] 06-02-2022 08:12-0400 Systolic blood pressure 144 mm[Hg] Santiago CARRILLO [facility] 08-17-2021 09:47-0500 Body height 160.02 cm Ashley M Hoy Work Phone: [facility] 250 DO Work Phone: 08-17-2021 09:47-0500 Body mass index (BMI) [Ratio] 25.01 kg/m2 Ashley M Hoy Work Phone: [facility] 250 DO Work Phone: 08-17-2021 09:47-0500 Body surface area Derived from formula 1.67 m2 Ashley M Hoy Work Phone: [facility] 250 DO Work Phone: 08-17-2021 09:47-0500 Body weight 64.05 kg Ashley M Hoy Work Phone: [facility] 250 DO Work Phone: 08-17-2021 09:47-0500 Diastolic blood pressure 86 mm[Hg] Ashley M Hoy Work Phone: [facility] 250 DO Work Phone: 08-17-2021 09:47-0500 Heart rate 72 /min Ashley M Hoy Work Phone: [facility] 250 DO Work Phone: 08-17-2021 09:47-0500 Systolic blood pressure 134 mm[Hg] Ashley M Hoy Work Phone: [facility] 250 DO Work Phone: Encounters Encounter Date Encounter Type Care Provider Facility Start: 06-23-2025 End: 06-23-2025 Ruben Sinha DO Work Phone: [facility] Start: 06-23-2025 End: 06-23-2025 Bamboo flowsheet Bridgett Soo Stanleytito DO Work Phone: [facility] Start: 06-23-2025 End: 06-23-2025 ambulatory Fawad BRIDGETT Soo SINHA Not Available Start: 06-23-2025 End: 06-23-2025 Office outpatient visit 15 minutes JrFawad Sarmiento Soo Stanleytito DO Work Phone: [facility] Comment on above: Tendonitis of wrist, right; Right wrist pain Start: 06-16-2025 End: 06-16-2025 ambulatory BRIDGETT GONZALEZ Not Available Start: 06-02-2025 End: 06-02-2025 Bamboo flowsheet JrFawad Bridgett Soo Stanleytito DO Work Phone: [facility] Start: 06-02-2025 End: 06-02-2025 Bamboo flowsheet Bridgett Soo Stanleytito DO Work Phone: [facility] Start: 06-02-2025 End: 06-02-2025 Office outpatient visit 15 minutes JrFawad Angeltito DO Work Phone: [facility] Comment on above: Chronic pain of righ t wrist Start: 06-02-2025 End: 06-02-2025 ambulatory BRIDGETT GONZALEZ Not Available Start: 05-27-2025 End: 05-27-2025 Patient encounter procedure Rae Louie MD Work Phone: [facility] 111 Comment on above: Numbness (Primary Dx ); Paresthesias; Carpal tunnel syndrome, left Start: 05-27-2025 End: 05-27-2025 ambulatory RAE LOUIE Not Available Start: 05-15-2025 End: 05-15-2025 Bamboo flowsheet Raji RINALDI Work Phone: [facility] Start: 05-15-2025 End: 05-15-2025 Bamboo flowsheet Raji Byrd PA Work Phone: [facility] Start: 05-15-2025 End: 05-15-2025 ambulatory RAJI BYRD Not Available Start: 05-15-2025 End: 05-15-2025 Office outpatient visit 15 minutes Raji Byrd PA Work Phone: [facility] Comment on above: Right wrist pain (Pr imary Dx); Arm weakness; Numbness; Arm pain, right; Ulnar neuropathy of right upper extremity Start: 05-08-2025 End: 05-08-2025 ambulatory [facility] Start: 01-30-2025 End: 01-30-2025 ambulatory [facility] Start: 01-17-2025 End: 01-17-[address] [facility] Start: 01-09-2025 End: 01-09-2025 ambulatory [facility] Start: 12-31-2024 End: 12-31-2024 ambulatory [facility] Start: 12-12-2024 End: 12-12-2024 ambulatory [facility] Start: 11-26-2024 End: 11-26-2024 Bamboo flowsheet Raji RINALDI Work Phone: [facility] Start: 11-26-2024 End: 11-26-2024 Bamboo flowsheet Raji Byrd PA Work Phone: [facility] Start: 11-26-2024 End: 11-26-2024 Office outpatient visit 15 minutes Raji RINALDI Work Phone: [facility] Comment on above: Acute pain of right wrist (Primary Dx); Tendonitis of wrist, right Start: 11-26-2024 End: 11-26-2024 ambulatory RAJI BYRD Not Available Start: 10-11-2024 End: 10-11-2024 ambulatory RADHA Vann FIONA [facility] Start: 09-05-2024 End: 09-05-2024 ambulatory [facility] Ambulatory Start: 09-05-2024 End: 09-05-2024 Transitional care manage srvc 14 day discharge Celso Garibay DO Work Phone: [facility] Comment on above: Atherosclerosis of c oronary artery bypass graft of [place] without angina pectoris; S/P PTCA (percutaneous transluminal coronary angioplasty); History of coronary artery bypass graft; Ischemic cardiomyopathy; Essential hypertension; Mixed hyperlipidemia; BMI 30.0-30.9,adult; Statin intolerance Start: 08-20-2024 End: 08-22-2024 Evaluation and management of inpatient Donis Arroyo Facility:[facility] Start: 08-18-2024 Evaluation and management of inpatient Ashley Grigsby MD Work Phone: [facility] Work Phone: Start: 08-18-2024 observation encounter Ashley Grigsby MD Work Phone: [facility] Work Phone: Start: 08-13-2024 End: 08-13-2024 ambulatory [facility]ulatory Start: 08-13-2024 End: 08-13-2024 Office outpatient visit 25 minutes Celso Cintrondon DO Work Phone: [facility] Comment on above: Atherosclerosis of c oronary artery of [place] heart without angina pectoris, unspecified vessel or lesion type; History of coronary artery bypass graft; Essential hypertension, benign; Hyperlipidemia, unspecified hyperlipidemia type; Acute pancreatitis, unspecified complication status, unspecified pancreatitis type ([facility] Start: 08-05-2024 End: 08-05-2024 ambulatory GENTRY-C JENNIFER MARTINO Facility:[facility] Start: 08-05-2024 End: 08-05-2024 Patient encounter procedure JENNIFER MARTINO [facility] Start: 04-10-2024 End: 04-10-2024 ambulatory GENTRY-Soo MARTINO Facility:[facility] Start: 04-10-2024 End: 04-10-2024 Patient encounter procedure JENNIFER MARTINO [facility] Start: 03-11-2024 End: 03-11-2024 ambulatory PA-C JENNIFER MARTINO Facility:[facility] Start: 03-11-2024 End: 03-11-2024 Patient encounter procedure JENNIFER MARTINO [facility] Start: 03-07-2024 End: 03-07-2024 Evaluation and management of inpatient [facility] Start: 03-06-2024 End: 03-07-2024 Evaluation and management of inpatient [facility] Start: 03-06-2024 End: 03-06-2024 Evaluation and management of inpatient [facility] Start: 02-29-2024 End: 02-29-2024 Evaluation and management of inpatient [facility] Start: 02-29-2024 End: 02-29-2024 Admission to [facility] Phone Call Provider 4 [facility] On [facility] Start: 02-14-2024 End: 02-14-2024 Orders Only Stephanie Berger MD PhD [facility] Comment on above: Xerostomia (Primary Dx) Start: 01-17-2024 End: 01-17-2024 ambulatory STEPHANIE BERGER [facility] Start: 01-17-2024 End: 01-17-2024 Office outpatient visit 15 minutes Stephanie Berger MD PhD Work Phone: [facility] Comment on above: Dry nose (Primary Dx ); Xerostomia; Allergic rhinitis, unspecified seasonality, unspecified trigger Start: 08-14-2023 End: 08-14-2023 Office outpatient visit 15 minutes Celso Garibay DO Work Phone: [facility] Comment on above: Atherosclerosis of c oronary artery of [place] heart without angina pectoris, unspecified vessel or lesion type; History of coronary artery bypass graft; Ischemic cardiomyopathy; Essential hypertension, benign Start: 06-18-2023 End: 06-18-2023 [facility] Start: 06-18-2023 End: 06-18-2023 Subsequent hospital visit by physician Gaby Tello DO Work Phone: [facility] Comment on above: Post-menopausal blee ding; Inclusion cyst Start: 05-24-2023 Rx Renewal [facility] Work Phone: Start: 05-17-2023 Patient encounter procedure Ashley Grigsby Work Phone: [facility] 250 DO Work Phone: Start: 05-15-2023 ambulatory ASHLEY GRIGSBY [facility] Start: 12-12-2022 End: 12-12-2022 ambulatory MD Ashley Grigsby Work Phone: [facility] Work Phone: Start: 12-12-2022 End: 12-12-2022 Patient encounter procedure MD Ashley Grigsby Work Phone: [facility] Work Phone: Start: 11-20-2022 End: 11-20-2022 ambulatory Imad Asaad Other [facility] [employer] Other Start: 11-20-2022 Telephone encounter Imad Asaad [facility] Start: 11-10-2022 End: 11-10-2022 Patient encounter procedure MD Ashley Grigsby Work Phone: [facility] [place] Work Phone: Start: 11-02-2022 End: 11-02-2022 Admission to same day surgery center MD Ashley Grigsby Work Phone: [facility] Work Phone: Start: 11-02-2022 End: 11-02-2022 ambulatory MD Ashley Grigsby Work Phone: [facility] Work Phone: Start: 11-01-2022 Telephone encounter Imad Asaad [facility] Start: 11-01-2022 End: 11-01-2022 Admission to same day surgery center MD Ashley Grigsby Work Phone: [facility] Work Phone: Start: 11-01-2022 End: 11-01-2022 ambulatory MD Ashley Grigsby Work Phone: [facility] Work Phone: Start: 10-24-2022 End: 10-24-2022 ambulatory Imad Asaad Other [facility] [employer] Other Start: 10-24-2022 [facility] visit new patient Imad Asaad [facility] Start: 10-16-2022 End: 10-17-[address] ASHLEY GRIGSBY Facility:[facility] Start: 10-09-2022 End: 10-10-[address] ASHLEY GRIGSBY Facility:[facility] Start: 10-05-2022 Rx Renewal Ashley Grigsby Work Phone: [facility] 250 DO Work Phone: Start: 10-04-2022 End: 10-06-[address] ASHLEY GRIGSBY Facility:[facility] Start: 09-19-2022 End: 09-20-[address] DOCTOR PATEL Facility:[facility] Start: 08-15-2022 Office outpatient vi sit 15 minutes Ashley Grigsby Work Phone: [facility] 250 DO Work Phone: Start: 08-15-2022 Patient encounter procedure Ashley Grigsby Work Phone: [facility] 250 DO Work Phone: Start: 06-02-2022 End: 06-02-2022 Patient encounter procedure Santiago Guzman L[facility] Start: 05-31-2022 Rx Renewal Ashley Grigsby Work Phone: [facility] 250 DO Work Phone: Start: 02-07-2022 End: 02-07-2022 Patient encounter procedure Ashley Grigsby MD Work Phone: [facility] Start: 02-07-2022 End: 02-07-2022 Subsequent hospital visit by physician Ashley Grigsby MD Work Phone: [facility] Comment on above: Women's annual routi ne gynecological examination Start: 11-21-2021 Rx Renewal Ashley Grigsby Work Phone: [facility] 250 DO Work Phone: Start: 08-17-2021 Office outpatient vi sit 15 minutes Ashley Grigsby Work Phone: [facility] 250 DO Work Phone: Start: 08-19-2019 End: [...] 11-02-2032 Screening for malignant neoplasm of colon [facility] Start: 02-07-2027 Screening for malignant neoplasm of cervix [facility] Start: 08-18-2025 End: 08-18-2025 Patient encounter procedure 08/18/2025 11:20 AM EST Office Visit [facility] [address] [place] [address] Celso Garibay DO [address] [facility] [address] [place] [address] [facility] Start: 08-04-2025 End: 08-04-2025 Patient encounter procedure 08/04/2025 10:45 AM EST Office Visit [facility] [place] [place] [address] Jr. Bridgett Sniha, DO [address] [facility] [address] [place] [address] [facility] Start: 08-03-2025 End: 08-13-2025 Alanine aminotransferase [Enzymatic activity/volume] in Serum or Plasma by With P-5'-P Alanine Aminotransferase Lab Routine Hyperlipidemia, unspecified hyperlipidemia type Expected: 08/03/2025 (Approximate), Expires: 08/13/2025 [facility] Service Area Work Phone: Comment on above: Expected: 08/03/2025 (Approximate), Expi res: 08/13/2025 Start: 08-03-2025 End: 08-13-2025 Aspartate aminotransferase [Enzymatic activity/volume] in Serum or Plasma by With P-5'-P Aspartate Aminotransferase Lab Routine Hyperlipidemia, unspecified hyperlipidemia type Expected: 08/03/2025 (Approximate), Expires: 08/13/2025 [facility] Work Phone: Comment on above: Expected: 08/03/2025 (Approximate), Expi res: 08/13/2025 Start: 08-03-2025 End: 08-13-2025 Lipid 1996 panel - Serum or Plasma Lipid Panel Lab Routine Hyperlipidemia, unspecified hyperlipidemia type Expected: 08/03/2025 (Approximate), Expires: 08/13/2025 [facility] Work Phone: Comment on above: Expected: 08/03/2025 (Approximate), Expi res: 08/13/2025 Start: 07-14-2025 End: 07-14-2025 ambulatory 07/14/2025 5:00 PM EDT Evaluation [facility] [address] [place] [phone] Kayode Francois, PT [address] [place] [address] [facility] Start: 06-23-2025 End: 06-23-2025 Patient encounter procedure 06/23/2025 11:00 AM EDT Office Visit [facility] [address] [place] [phone] Jr. Bridgett Sinha, [address] [facility] [address] [place] [address] [facility] Start: 06-02-2025 End: 06-02-2026 MR Wrist - right WO contrast MR wrist right wo IV cont rast Imaging Routine Chronic pain of right wrist Expected: 06/02/2025 (Approximate), Expires: 06/02/2026 [facility] Work Phone: Comment on above: Expected: 06/02/2025 (Approximate), Expi res: 06/02/2026 Start: 06-02-2025 End: 06-02-2025 Patient encounter procedure [facility] Comment on above: Arrived Start: 06-01-2025 Influenza vaccination Influenza Vaccine (#1) [facility] Start: 05-15-2025 End: 05-15-2026 EMG AND NERVE CONDUCTION STUDY EMG AND NERVE CONDUCTIO N STUDY Neurology Routine Arm weakness Numbness Arm pain, right Ulnar neuropathy of right upper extremity Expected: 05/15/2025 (Approximate), Expires: 05/15/2026 [facility] Work Phone: Comment on above: Expected: 05/15/2025 (Approximate), Expi res: 05/15/2026 Start: 03-17-2025 End: 03-17-2025 Patient encounter procedure 03/17/2025 2:40 PM EDT Off ice Visit [facility] [address] [place] [address] Celso Garibay DO [address] [facility] [address] [place] [address] [facility] Start: 02-28-2025 Adult BMI Screening Adult BMI Screening [facility] Start: 02-07-2025 Screening for malignant neoplasm of cervix [facility] Start: 01-16-2025 Adult BMI Screening Adult BMI Screening [facility] Start: 01-16-2025 Tobacco Screening Tobacco Screening [facility] Start: 01-15-2025 End: 01-15-2025 Patient encounter procedure 01/15/2025 4:00 PM EDT [facility] [address] [facility] [phone] Stephanie Berger MD PhD [address] [facility] [address] [place] [address] [facility] Start: 11-26-2024 End: 11-26-2024 Patient encounter procedure 11/26/2024 1:00 PM EST Off ice Visit [facility] [address] [place] [phone] Raji Byrd PA [address] [place] [address] [address] [place] [address] Acute pain of right wrist (Primary Dx) [facility] Comment on above: Acute pain of right wrist (Primary Dx) Start: 08-19-2024 Screening for malignant neoplasm of cervix [facility] Start: 08-19-2024 [facility] Start: 08-19-2024 Referral to singing telegram performer [facility] Start: 08-19-2024 [facility] Start: 08-18-2024 Hospital admission [facility] Start: 08-15-2024 Screening for malignant neoplasm of breast Mammogram [facility] Start: 08-13-2024 End: 08-13-2024 Patient encounter procedure 08/13/2024 11:30 AM EST Office Visit [facility] [address] [place] [address] Celso Garibay DO [address] [place] [address] [facility] Start: 2024 RSV High Risk: (Elderly (60+) or Population) (1 - Risk 60-74 years 1-dose series) RSV High Risk: (Elderly (60+) or Population) (1 - Risk 60-74 years 1-dose series) [facility] Start: 06-01-2024 COVID-19 Vaccine ( season) COVID-19 Vaccine ( season) [facility] Start: 06-01-2024 Influenza vaccination Influenza Vaccine [facility] Start: 03-06-2024 End: 03-06-2024 Admission to same day surgery center 03/06/2024 11:30 AM EDT - 03/06/2024 12:45 PM EDT Surgery [facility] [address] [place] [address] Danielle Magallon MD [address] [place] [address] ESOPHAGOGASTRODUODENOSCOPY DIAGNOSTIC [30454 (CPT )] [facility] Comment on above: ESOPHAGOGASTRODUODENOSCOPY DIAGNOSTIC [4 3235 (CPT )] Start: 03-06-2024 End: 03-06-2024 Esophagogastroduodenoscopy transoral diagnostic ESOPHAGOGASTRODUODENOSCOPY DIAGNOSTIC ACUTE RECURRING PANCREATITIS, EPIGASTRIC PAIN 03/06/2024 11:30 AM EDT [facility] Start: 03-06-2024 End: 03-06-2024 Esophagoscopy flexible transoral ultrasound exam ENDOSCOPIC ULTRASOUND UPPER ACUTE RECURRING PANCREATITIS, EPIGASTRIC PAIN 03/06/2024 11:30 AM EDT [facility] Start: 03-06-2024 Subsequent hospital visit by physician 03/06/2024 11:30 AM EDT Hospital Encounter [facility] [address] [facility] [place] [place] [address] Danielle Magallon MD [address] [place] [address] [facility] Start: 02-14-2024 Depression Screen Depression Screen [facility] Start: 02-12-2024 End: 08-14-2024 Alanine aminotransferase [Enzymatic activity/volume] in Serum or Plasma by With P-5'-P Alanine Aminotransferase Lab Routine History of coronary artery bypass graft Ischemic cardiomyopathy Expected: 02/12/2024 (Approximate), Expires: 08/14/2024 [facility] Work Phone: Comment on above: Expected: 02/12/2024 (Approximate), Expi res: 08/14/2024 Start: 02-12-2024 End: 08-14-2024 Aspartate aminotransferase [Enzymatic activity/volume] in Serum or Plasma by With P-5'-P Aspartate Aminotransferase Lab Routine Atherosclerosis of coronary artery of [place] heart without angina pectoris, unspecified vessel or lesion type Ischemic cardiomyopathy Expected: 02/12/2024 (Approximate), Expires: 08/14/2024 [facility] Work Phone: Comment on above: Expected: 02/12/2024 (Approximate), Expi res: 08/14/2024 Start: 02-12-2024 End: 08-14-2024 Lipid 1996 panel - Serum or Plasma Lipid Panel Lab Routine Atherosclerosis of coronary artery of [place] heart without angina pectoris, unspecified vessel or lesion type Expected: 02/12/2024 (Approximate), Expires: 08/14/2024 [facility] Service Area Work Phone: Comment on above: Expected: 02/12/2024 (Approximate), Expi res: 08/14/2024 Start: 08-14-2023 FUV, Provider: Celso Garibay, Status: Julio, Time: 3:00 PM FUV, Provider: Celso Garibay, Status: Julio, Time: 3:00 PM -[facility] 250 DO Work Phone: Start: 07-28-2023 Screening for malignant neoplasm of breast Breast cancer screen [facility] Start: 07-24-2023 Screening for malignant neoplasm of breast Mammogram [facility] Start: 07-03-2023 End: 07-03-2023 Patient encounter procedure 07/03/2023 4:45 PM EDT Off ice Visit [facility] [place] [address] Gaby Phillips, DO [address] [place], [place] [phone] post-op BA 05/16 [facility] Comment on above: post-op BA 05/16 Start: 06-18-2023 End: 06-18-2023 Hysteroscopy bx endometrium&/polypc w/wo d&c DILATATION AND CURETTAGE HYSTEROSCOPY Post-menopausal bleeding Inclusion cyst 06/18/2023 2:01 PM EDT [facility] Start: 06-01-2023 COVID-19 Vaccine () COVID-19 Vaccine () [facility] Start: 02-13-2023 End: 02-13-2023 Patient encounter procedure 02/13/2023 Office Visit Obstetrics and Gynecology Gaby Phillips, DO [address] [place] [address] [facility] Start: 12-12-2022 [facility] Start: 11-02-2022 [facility] Start: 11-01-2022 [facility] Start: 08-19-2022 Screening for malignant neoplasm of cervix Pap smear [facility] Start: 08-15-2022 FUV, Provider: Celso Garibay, Status: Pen, Time: 3:00 PM FUV, Provider: Celso Garibay, Status: Pen, Time: 3:00 PM [facility] 250 DO Work Phone: Start: 08-03-2022 Lipid panel Lipids [facility] Start: 09-26-2021 COVID-19 Vaccine (4 - Pfizer series) COVID-19 Vaccine (4 - Pfizer series) [facility] Start: 06-01-2019 Influenza vaccination Flu vaccine (#1) [facility] [place] [place] Start: 05-09-2018 Pneumococcal Vaccine: Pediatrics (0 to 5 Years) and At-Risk Patients (6 to 64 Years) (2 - PCV) Pneumococcal Vaccine: Pediatrics (0 to 5 Years) and At-Risk Patients (6 to 64 Years) (2 - PCV) [facility] Start: 05-09-2018 Pneumococcal Vaccine: Pediatrics (0 to 5 Years) and At-Risk Patients (6 to 64 Years) (2 of 2 - PCV) Pneumococcal Vaccine: Pediatrics (0 to 5 Years) and At-Risk Patients (6 to 64 Years) (2 of 2 - PCV) [facility] Start: 2014 Breast cancer screen Breast cancer screen [place], [place] Start: 2014 Colon cancer screen colonoscopy Colon cancer screen colonoscopy [place], [place] Start: 2014 Shingles Vaccine (1 of 2) Shingles Vaccine (1 of 2) [facility] Start: 08-26-2009 MMR Vaccines (1 of 1 - Standard series) MMR Vaccines (1 of 1 - Standard series) [facility] Start: 2009 Screening for malignant neoplasm of colon [facility] Start: 1999 Diabetes screen Diabetes screen [facility] Start: 1986 DTaP/Tdap/Td Vaccines (1 - Tdap) DTaP/Tdap/Td Vaccines (1 - Tdap) [facility] Start: 1985 Cervical cancer screen Cervical cancer screen [place], [place] Start: 1985 Screening for malignant neoplasm of cervix [facility] Start: 1983 DTaP,Tdap and Td Vaccines (1 - Tdap) DTaP,Tdap and Td Vaccines (1 - Tdap) [facility] Start: 1983 DTaP/Tdap/Td vaccine (1 - Tdap) DTaP/Tdap/Td vaccine (1 - Tdap) [facility] Start: 1982 Adult BMI Follow Up Plan Adult BMI Follow Up Plan [facility] Start: 1982 Diabetes mellitus screening Diabetes Screening [facility] Start: 1982 Hepatitis C screening [facility] Start: 1979 HIV screen HIV screen [place], [place] Start: 1979 HIV screening HIV screen [facility] Start: 1976 Depression Screen Depression Screen [facility] Start: 1976 Depression Screening Depression Screening [facility] Start: 1975 DTaP/Tdap/Td vaccine (1 - Tdap) DTaP/Tdap/Td vaccine (1 - Tdap) [place] Start: 1974 Lipid panel Lipids [facility] Start: 1974 Lipid screen Lipid screen [place], [place] Start: 1964 Hepatitis B vaccine (1 of 3 - 3-dose series) Hepatitis B vaccine (1 of 3 - 3-dose series) [facility] Start: 1964 Hepatitis B Vaccines (1 of 3 - 3-dose series) Hepatitis B Vaccines (1 of 3 - 3-dose series) [facility] Start: 1964 Hepatitis C screen Hepatitis C screen [place], [place] Start: 1964 HIV screening HIV Screening [facility] Start: 1964 Lipid panel Lipid Panel [facility] Start: 1964 Screening for malignant neoplasm of colon [facility] Start: 1964 Yearly Adult Physical Yearly Adult Physical [facility] Actin smooth muscle IgG Ab [Units/volume] in Serum [facility] Alpha 1 antitrypsin [Mass/volume] in Serum or Plasma [facility] Alpha 1 antitrypsin phenotyping [Identifier] in Serum or Plasma by Immunofixation [facility] Ceruloplasmin [Mass/ volume] in Serum or Plasma [facility] End: 08-19-2019 Cytopathology procedure, preparation of smear, genital source PAP SMEAR Lab Routine Well female exam with routine gynecological exam 1 Occurrences starting 08/19/2019 until 08/19/2019 [place] Comment on above: 1 Occurrences starting 08/19/2019 until 08/19/2019 End: 02-07-2022 Cytopathology procedure, preparation of smear, genital source PAP SMEAR Lab Routine Women's annual routine gynecological examination 1 Occurrences starting 02/07/2022 until 02/07/2022 [facility] Work Phone: Comment on above: 1 Occurrences starting 02/07/2022 until 02/07/2022 Glucose measurement estimated from glycated hemoglobin [facility] Hepatitis A virus Ab [Presence] in Serum by Immunoassay [facility] Hepatitis B core ant ibody measurement [facility] Hepatitis B virus khanna rface Ab [Presence] in Serum [facility] Hepatitis B virus khanna rface Ag [Presence] in Serum or Plasma by Immunoassay [facility] Hepatitis C virus Ig G Ab [Presence] in Serum or Plasma by Immunoassay [facility] Homogenous nuclear A b pattern [Titer] in Serum [facility] IgG [Mass/volume] in Serum or Plasma [facility] End: 06-18-2023 INITIATE PACU OXYGEN THERAPY PROTOCOL Initiate PACU Oxygen Therapy Protocol Respiratory Care Routine Continuous until discontinued starting 06/18/2023 [employer] Comment on above: Continuous until discontinued starting 0 06/18/2023 Lipoprotein a [Moles /volume] in Serum or Plasma [facility] Mitochondria M2 IgG Ab [Units/volume] in Serum [facility] Nuclear Ab [Titer] in Serum [facility] Oxygen therapy [Mini mum Data Set] Initiate Oxygen Therapy Protocol Respiratory Care Routine As Needed until discontinued starting 06/18/2023 [employer] ([employer]) Comment on above: As Needed until discontinued starting Oxygen therapy [Mini mum Data Set] Initiate Oxygen Therapy Protocol Respiratory Care Routine As Needed until discontinued starting 06/18/2023 [employer]) Comment on above: As Needed until discontinued starting Patient Education Hemorrhoids (DC) [facility] Work Phone: End: 06-18-2023 , urine POCT , urine POCT Point of Care Testing Routine One Time for 1 Occurrences starting 06/18/2023 until 06/18/2023 [employer] Comment on above: One Time for 1 Occurrences starting 06/01 until 06/18/2023 Surgical Pathology Surgical Path ology Lab Routine Post-menopausal bleeding Inclusion cyst Release Upon Ordering for 1 Occurrences starting 06/18/2023 [employer] Comment on above: Release Upon Ordering for 1 Occurrences starting 06/18/2023 [facility] Immunizations Immunization Date Immunization Notes Care Provider Fa cility 06-05-2024 influenza virus vacc ine, unspecified formulation Raji RINALDI Work Phone: [facility] 06-01-2024 influenza, unspecifi ed formulation JENNIFER MARTINO [facility] 06-05-2023 influenza virus vacc ine, unspecified formulation Stephanie Berger MD PhD Work Phone: [facility] 06-16-2022 influenza, injectabl e, quadrivalent, preservative free Ashley M Hoy Work Phone: [facility] [employer] 250 DO Work Phone: 06-16-2022 zoster vaccine recombinant Ashley M Hoy Work Phone: [facility] 250 DO Work Phone: 08-01-2021 Pfizer-BioNTech COVI D-19 Vacc 30 MCG/0.3ML Intramuscular Suspension Ashley M Hoy Work Phone: [facility] DO Work Phone: 06-30-2021 influenza virus vacc ine, unspecified formulation Ashley M Hoy Work Phone: [facility] DO Work Phone: 06-03-2021 Influenza, injectabl e, Madin [place] Canine Kidney, preservative free, quadrivalent Ashley M Hoy Work Phone: [facility] 250 DO Work Phone: 01-29-2021 Pfizer-BioNTech COVI D-19 Vacc 30 MCG/0.3ML Intramuscular Suspension Ashley M Hoy Work Phone: [facility] 250 DO Work Phone: 01-08-2021 Pfizer-BioNTech COVI D-19 Vacc 30 MCG/0.3ML Intramuscular Suspension Ashley M Hoy Work Phone: [facility] 2020 influenza, injectabl e, quadrivalent, preservative free Ashley M Hoy Work Phone: [facility] DO Work Phone: 07-23-2018 influenza, injectabl e, quadrivalent, preservative free Ashley M Hoy Work Phone: [facility] 250 DO Work Phone: 07-26-2017 Influenza, injectabl e, Madin [place] Canine Kidney, preservative free, quadrivalent Ashley M Hoy Work Phone: [facility] [employer] [place] 250 DO Work Phone: 05-09-2017 pneumococcal polysaccharide vaccine, 23 valent Ashley M Hoy Work Phone: [facility] 250 DO Work Phone: 07-03-2015 influenza, seasonal, injectable, preservative free Ashley M Hoy Work Phone: [facility] 250 DO Work Phone: 06-15-2014 influenza, seasonal, injectable Ashley M Hoy Work Phone: [facility] [employer] 250 DO Work Phone: 07-29-2009 novel influenza-H1N1 -09, preservative-free, injectable Ashley M Hoy Work Phone: [facility] [employer] 250 DO Work Phone: Payers Date Payer Category Payer Self-pay [id number] [phone] [id number] 2022 [facility] [id number] 2022 [facility] [id number] 2022 Unknown 2019 Unknown [employer] [place] xxxxxxxxxxxxxxx 2019-Present [address] [place] [address] xxxxxxxxxxxxxxx [id number] 1964 Unknown [id number] 2.16.840.1.241648.3.579.2.5 93 1964 Unknown [id number] 2.16.840.1.387087.3.579.2.5 93 1964 Unknown [id number] 2.16.840.1.244689.3.579.2.5 93 1964 Unknown [id number] 2.16.840.1.702533.3.579.2.5 93 1964 Unknown [id number] 2.16.840.1.512032.3.579.2.5 93 1964 Unknown [id number] 2.16.840.1.074309.3.579.2.1 73 1964 Unknown [id number] 2.16.840.1.992648.3.579.2.1 75 1964 Unknown [id number] 2.16.840.1.021800.3.579.2.1 286 1964 Unknown [id number] 2.16.840.1.579303.3.579.2.1 286 1964 Unknown [id number] 2.16.840.1.035514.3.579.2.1 286 1964 Unknown [id number] 2.16.840.1.671536.3.579.2.1 286 1964 Unknown [id number] 2.16.840.1.460330.3.579.2.1 286 1964 Unknown [id number] 2.16.840.1.024950.3.579.2.1 286 1964 Unknown [id number] 2.16.840.1.186936.3.579.2.1 286 1964 Unknown [id number] 2.16.840.1.169673.3.579.2.7 27 1964 Unknown [id number] 2.16.840.1.097813.3.579.2.7 27 1964 Unknown [id number] 2.16.840.1.316790.3.579.2.7 27 1964 Unknown [id number] 2.16.840.1.233255.3.579.2.1 244 1964 Unknown [id number] 2.16.840.1.743637.3.579.2.1 244 1964 Unknown [id number] 2.16.840.1.436946.3.579.2.1 286 1964 Unknown [id number] 2.16.840.1.804510.3.579.2.1 286 1964 Unknown [id number] 2.16.840.1.375438.3.579.2.1 259 1964 Unknown [id number] 2.16.840.1.797227.3.579.2.1 259 1964 Unknown [id number] 2.16.840.1.551340.3.579.2.1 259 1964 Unknown [id number] 2.16.840.1.402548.3.579.2.1 259 1964 Unknown [id number] 2.16.840.1.630527.3.579.2.1 259 1964 Unknown [id number] 2.16.840.1.804058.3.579.2.1 259 1964 Unknown [id number] 2.16.840.1.503966.3.579.2.1 259 1964 Unknown [id number] 2.16.840.1.163569.3.579.2.1 259 1959 Unknown [id number] 1959 Unknown [id number] Unknown [id number] 2.16.840.1.859782.3.579.2.5 31 Social History Date Type Detail Facility Start: 08-19-2019 End: 09-13-2023 Tobacco smoking status NHIS Never smoker [place], [place] Start: 08-19-2019 End: 06-23-2025 Alcohol intake Ex-drinker (finding) [facility] Start: 1965 Sex Assigned At Not on file M [place], [place] Start: 06-18-2023 End: 06-23-2025 No alcohol use No alcohol use [facility] 250 DO Work Phone: Start: 08-19-2019 End: 09-13-2023 Tobacco use and exposure Smokeless tobacco non-user [facility] Work Phone: Start: 06-18-2023 End: 06-23-2025 Sex Assigned At Female [facility] Start: 1965 Sex Assigned At Female [facility] Patient Health Questionnaire 9 item (PHQ-9) total score [Reported] 0 [facility] Start: 08-14-2023 End: 09-05-2024 Alcohol intake Lifetime non-drinker (finding) [facility] Work Phone: Start: 08-04-2023 End: 09-05-2024 Exposure to SARS-CoV-2 (event) Not sure [facility] Start: 08-19-2024 Sex Female (finding) [facility] Start: 01-17-2024 End: 02-29-2024 Alcoholic beverage intake Current non-drinker of alcohol (finding) [facility] Start: 09-12-2023 Gender identity Identifies as female gender (finding) [facility] NEGATED: Highlighted row Denies Caffeine use Denies Caffeine use -[facility] 250 DO Work Phone: Medical Equipment Procedure [...] Tissue Alloderm Nonmesh 2x4cm - Sna - [id number] Start: 09-06-2017 Lens Iol Ultrase rt 17.0d - [id number] - [id number] Start: 11-14-2018 Sinus Implant Propel Mini - Sna - [id number] Start: 01-03-2018 Sinus Implant Propel - Sna - [id number] Start: 01-03-2018 Acrysofiq Restor [id number] Start: 11-05-2018 Goals Date Patient Goal Desired Activity /State Functional Status Date Assessment Result Facility 08-05-2024 Functional Status N/A [facility] 04-10-2024 Functional Status N/A [facility] 06-02-2022 Functional Status N/A [facility] Clinical Notes 06-02-2022 to 06-23-2025 Jr. Bridgett [...] requiring urgent evaluation. documented in this encounter [facility] 06-02-2025 History of Present illness Narrative [...] IV contrast MRI RT wrist w/o at [facility]. Orbits if needed. Please contact patient to [...] requiring urgent evaluation. documented in this encounter [facility] 05-27-2025 History of Present illness Narrative [facility] Patient: Jose Alberto Saleem [address], [address] , Sex: 1965, Male [place] [id number] Height: 160 cm Ref Phys: Byrd fax [...] Doub=doublet; Fasc=fasciculation; FFE=full for effort; Fib=fibrillation; Myokym=myokymia; [place]=myotonic potential; N,0=normal; NR=no response; Polyph=polyphasia; Pos=positive [sharp] [...] or mononeuritis multiplex. Rae Louie M.D. Diplomate, [place] [employer] and Neurology (neurology, epilepsy, sleep medicine) Diplomate, [place] [employer] of Clinical Neurophysiology Diplomate, [place] [employer] of Preventive Medicine (clinical informatics) . documented in this encounter [facility] 05-19-2025 Note Called patient today to [...] dosage depending on her snack, verifies understanding. [facility] 05-15-2025 History of Present illness Narrative Images [...] her hand tightly in a fist. Symmetric director of operations support strength noted. She has had prior carpal [...] requiring urgent evaluation. Visit was preformed using [employer]fire [employer] speech recognition. documented in this encounter [facility] [facility] 05[facility]14[facility] Note Called patient to fo [...] Rivera in the clinic and Dr. Watson. [facility] 05-08-2025 Note Attestation signed by Chauncey Kimble MD at 05/08/2025 4:15 PM I personally saw the patient with the resident/fellow on the same day of service. I discussed the findings and therapeutic plan with the resident/fellow and with the patient. I agree with the documentation. [facility] Gastroenterology Follow-Up Patient Visit CHIEF COMPLAINT [...] B12/Folate/Iron studies: Lab Results Component Value Date [id number] 1,862 (H) 02/27/2024 FOLATE 39.0 02/27/2024 IRON [...] 2.02 02/27/2024 Pancreatiti (more content not included)... [facility] 01-09-2025 Note Attestation signed by Chauncey Kimble [...] Follow-up MRI follow up and seen at [facility] and in hospital for 1 day. [...] on for which [facility] symptomatically. Patient reported [...] Plavix, baby aspirin, amlodipine, and a PRN [place] for pain. Of note, she has a [...] which were ordered at the outside facility ([facility]) and remain pending. A HIDA scan may also be pursued for further evaluation. She reports extreme fatigue post-hospitalization, interfering with her work and daily function. She prefers to avoid surgical intervention unless necessary and is open to advanced enteroscopy (e.g., device-assisted ERCP) at tertiary centers ([facility] or [facility]) as a less invasive alternative to laparoscopic-assisted ERCP. Plan includes requesting complete LFTs and pancreatic (more content not included)... [facility] 12-12-2024 Note Attestation signed by Chauncey Kimble [...] on for which [facility] and was management symptomatically. Patient reported since then she has been feeling fine. Unknown family history. Patient denies alcohol use. PREVIOUS LABS/IMAGING/ENDOSCOPY: MRCP 02/12/2024 EUS-03/24 Findings: ENDOSCOPIC FINDING: : The upper third of the esophagus, middle third of the esophagus and lower third of the esophagus were normal. Evidence of a Romnia-en-Y gastrojejunostomy was found. The gastrojejunal anastomosis was characterized by healthy appearing mucosa. This was traversed. The jyelm-vq-xigmhjt limb was characterized by healthy appearing mucosa. [...] Angina pectoris Atherosclerosis of coronary artery of blue lake heart without angina pectoris Cellulitis of [...] Mother Gretta Hyperlipidemia Father Alexander Hyperlipidemia Brother [place] Heart attack Brother Ray SOCIAL HISTORY: Social History Tobacco Use Smoking status: Never Smokeless tobacco: Never Vaping Use Vaping status: Never Used Substance Use Topics Alcohol use: Never Drug use: Never ALLERGIES: Baclofen; Latex, natural rubber; Penicillins; Sulfa (sulfonamide antibiotics); Rosuvastatin; Sulfamethoxazole-trimethoprim; Fenofibrate; Fenofibrate micronized; Fluvastatin; Levofloxacin; Phenazopyridine; Simvastatin; Trimethoprim; and Tobramycin Current Med (more content not included)... [facility] 11-26-2024 History of Present illness Narrative Images [...] AND FELT A POP 10/08/24- WENT TO [facility]; SENT TO ER XRAYS XRAY RT WRIST TODAY EPIC 11/26/24 XRAY [facility] RT FOREARM 10/11/24 SPLINT DOING WELL [...] xray 10/11/24 (R) Forearm: no acute fracture [facility] Results - Imaging: - X-ray of [...] requiring urgent evaluation. documented in this encounter [facility] 09-05-2024 History of Present illness Narrative Subjective Jose Alberto Saleem is a 59 y.o. female Chief Complaint Follow-up 59-year-old female returns following acute coronary syndrome, with subsequent two-vessel intervention of the vein graft to the diagonal branch with long 3.5 x 38 mm Ray stent and blue lake distal circumflex for in-stent restenosis with 3 x 18 mm [place] stent. LV function is preserved. WHEELER-LAD remains patent, [place] right coronary vein graft right coronary is chronically occluded (known from the past) and collateralized via left coronary system, and vein graft to the OM 2 is also occluded chronically however [place] circumflex is intact. Patient is otherwise [...] Atherosclerosis of coronary artery bypass graft of blue lake heart without angina pectoris 2. S/P [...] discussion and plan. documented in this encounter [facility] Work Phone: 09-05-2024 Instructions Jasmyne Salinas [...] be sent through Care Everywhere.Heart Healthy Diet (Romansh)documented in this encounter [facility] Work Phone: 08-19-2024 Evaluation note Diagnosis Onset Date Resolution Atypical chest pain acute Novem rocky 2023 11:18pm [facility] Work Phone: 1(370) 663-586511-13-2024 History of Present illness Narrative* Celso Garibay DO - 08/13/2024 11:30 AM EST Subjective Jose Alberto Saleem is a 59 y.o. female Chief Complaint Annual Exam 59-year-old female returns for annual visit, she just got back from [facility] from vacation last evening and [...] has a history of remote CABG, remote DE, remote PCI's before and after her CABG [...] Assessment/Plan 1. Atherosclerosis of coronary artery of blue lake heart without angina pectoris, unspecified vessel or lesion type Follow Up In Cardiology 2. History of coronary artery bypass graft Follow Up In Cardiology 3. Essential hypertension, benign 4. Hyperlipidemia, unspecified hyperlipidemia type 5. Acute pancreatitis, unspecified complication status, unspecified pancreatitis type ([facility]) Scribe Attestation By signing my name below, [...] exam, discussion and plan. [facility] Work Phone: 1(999) 546-440411-13-2024 Instructions* Patient Instructions* Bettei Ugalde LPN - 08/13/2024 11:30 AM EST [...] Provided instructions on exercise. [facility] Work Phone: 1(697) 515-591811-05-2024 Hospital Discharge instructions Patient Education 08/05/2024 12:20:10 Kidney Stones, Nqic-le-Bpnu Kidney Stones Kidney stones are rock-like masses [...] Follow these instructions at home: Medicines Take cqzu-zcf-vqwhmbm and prescription medicines only as told by [...] provider. Document Revised: 05/11/2023 Document Reviewed: 05/11/2023 [employer] Patient Education 2023 [employer]. Follow Up Care 06/06/2024 11:10:21 With:JENNIFER MARTINO PA-C, CARLOS Address: When:1 year [facility] 11-05-2024 NotePatient Education Urology Kidney Stones Kidney [...] these instructions at home: Medicines ??? Take cyei-vsw-alyrrnl and prescription medicines only as told by [...] provider. Document Revised: 05/11/2023 Document Reviewed: 05/11/2023 [employer] Patient Education ? 2023 [employer].[facility] 04-10-2024 Hospital Discharge instructions Patient Education 04/10/2024 16:08:23 Kidney Stones, Wyfs-ie-Paas Kidney Stones Kidney stones are rock-like masses [...] Follow these instructions at home: Medicines Take noqm-kxb-kvuuexl and prescription medicines only as told by [...] provider. Document Revised: 05/22/2022 Document Reviewed: 05/22/2022 [employer] Patient Education 2022 [employer]. Follow Up Care 03/10/2024 08:31:33 With:SALENA REDDY JENNIFER López, URL Address: [address] [place] [address] When:[address] [facility] Adelfo 07-11-2024 NotePatient Education Urology Kidney Stones [...] these instructions at home: Medicines ? Take hqvb-iap-lkutoqn and prescription medicines only as told by [...] provider. Document Revised: 05/22/2022 Document Reviewed: 05/22/2022 [employer] Patient Education ? 2022 [employer].[facility] [place] 02-29-2024 Instructions* Pre-Procedure Instructions - Aracely Boyd RN - 02/29/2024 10:00 AM EDT Your surgery/procedure is scheduled at [facility] on 03/06/2024 at 1130 Arrival Time 0930 [facility] Address: [address] [place] [address] in [address]1 Parking lot located on [facility]. Report to the Entrance B. Check in at the information desk the surgery. The waiting room located on the second floor. If you have any questions prior to surgery, please call Pre-Admission Clinic at [phone] between 7:30 am and 4:30 pm Sunday through Sunday. If you have questions the morning of surgery, please call the Pre-op Department at [phone]. Notify your SURGEON if you develop any [...] would [facility], please call [address] [place] [address] ([phone]). Do not use lotions, creams, powders, perfume, [...] RIGHTS AND RESPONSIBILITIES As a patient at [facility], you have the right to: Receive medical care and be informed of who is taking care of you Be treated with dignity and respect Have a family member/ocean import representative of choice and your physician notified of your admission Receive information and actively participate in decisions about your care and treatment Refuse care, treatment and services Decide who may provide your support and speak for you Access uatsdin and spiritual services Participate in ethical issues [...] of hospital charges and payment methods Patient/patient ocean import representative responsibilities are to: Provide information about [...] RIGHTS AND RESPONSIBILITIES As a patient at [facility], you have the right to: Receive medical care and be informed of who is taking care of you Be treated with dignity and respect Have a family member/ocean import representative of choice and your physician notified of your admission Receive information and actively participate in decisions about your care and treatment Refuse care, treatment and services Decide who may provide your support and speak for you Access uatsdin and spiritual services Participate in ethical issues [...] of hospital charges and payment methods Patient/patient ocean import representative responsibilities are to: Provide information about [...] Control department if you have any questions. [facility]05-31-2024 Miscellaneous Notes* Pre-Procedure Instructions - Aracely Boyd RN - 02/29/2024 10:00 AM EDT Your surgery/procedure is scheduled at [facility] on 03/06/2024 at 1130 Arrival Time 0930 [facility] Address: [address] [place] [address] in Parking lot located on [facility]. Report to the Entrance B. Check in at the information desk the surgery. The waiting room located on the second floor. If you have any questions prior to surgery, please call Pre-Admission Clinic at [phone] between 7:30 am and 4:30 pm Sunday through Sunday. If you have questions the morning of surgery, please call the Pre-op Department at [phone]. Notify your SURGEON if you develop any [...] would like to schedule therapy at a [facility] facility, please call [phone] ([phone]). Do not use lotions, creams, powders, perfume, [...] RIGHTS AND RESPONSIBILITIES As a patient at [facility], you have the right to: Receive medical care and be informed of who is taking care of you Be treated with dignity and respect Have a family member/ocean import representative of choice and your physician notified of your admission Receive information and actively participate in decisions about your care and treatment Refuse care, treatment and services Decide who may provide your support and speak for you Access uatsdin and spiritual services Participate in ethical issues [...] of hospital charges and payment methods Patient/patient ocean import representative responsibilities are to: Provide information about [...] RIGHTS AND RESPONSIBILITIES As a patient at [facility], you have the right to: Receive medical care and be informed of who is taking care of you Be treated with dignity and respect Have a family member/ocean import representative of choice and your physician notified of your admission Receive information and actively participate in decisions about your care and treatment Refuse care, treatment and services Decide who may provide your support and speak for you Access uatsdin and spiritual services Participate in ethical issues [...] of hospital charges and payment methods Patient/patient ocean import representative responsibilities are to: Provide information about [...] you have any questions. [facility] in [facility] History of Present illness Narrative* Stephanie Berger MD PhD - 01/17/2024 4:00 PM EDT [facility] [address] [place] [id number] SUBJECTIVE: Patient ID (1965): Jose Alberto Saleem [...] Hypertension Kidney stone Kidney stones Myocardial infarction ([facility]) 2014 5 stents Visual impairment Past Surgical History: Procedure Laterality Date APPENDECTOMY BIOPSY SALIVARY GLAND FS N/A 09/06/2017 Performed by Stephanie Berger MD at [facility] CARPAL TUNNEL RELEASE right CHOLECYSTECTOMY CORONARY ARTERY BYPASS GRAFT x4 ENDOSCOPIC FUNCTIONAL SINUS SURGERY Bilateral 01/03/2018 Performed by Stephanie Berger MD at [facility] ENDOSCOPIC SURGERY SINUS Bilateral 01/03/2018 Performed by Stephanie Berger MD at [facility] EXCISION MASS UPPER EXTREMITY Right 11/19/2019 Performed by Stephanie Morse DO at [facility] HERNIA REPAIR LAPAROSCOPIC GASTRIC BYPASS LITHOTRIPSY OVARIAN CYST REMOVAL PHACO KELMAN I IMPLANT INTRAOCULAR LENS Left 11/14/2018 Performed by Nisha Stoll MD at [facility] PHACO KELMAN I IMPLANT INTRAOCULAR LENS Right 11/05/2018 Performed by Nisha Stoll MD at [facility] RELEASE CARPAL TUNNEL Right 01/11/2022 Performed by Stephanie Morse DO at [facility] RELEASE CARPAL TUNNEL [place] CPT 47584 Left 07/19/2022 Performed by Stephanie Morse DO at [facility] RESECTION SUBMUCOSAL Bilateral 09/06/2017 Performed by Stephanie Berger MD at [facility] SEPTOPLASTY SEPTOPLASTY N/A 09/06/2017 Performed by Stephanie Berger MD at [facility] STENT INSERTION LACRIMAL DUCT EYE Right 09/06/2017 Performed by Stephanie Berger MD at [facility] URETERAL STENT PLACEMENT Family History Problem Relation [...] tablets (6.25 mg total) by mouth daily. ujkmnhqu-jbqd-HL-calcium &mins (THERAGRAN-M) 9 mg iron-400 mcg tablet [...] day. (Patient not taking:Reported on 01/17/2024) sod ofepj-lsdscf-jycdkm bottle (NEILMED SINUS RINSE COMPLETE) packet with [...] this chart were generated using voice recognition M*Zuffle dictation software. Although every effort was made to ensure the accuracy of this automated rectification printer, some errors in rectification printer may have occurred. documented in this encounterK[facility] History of Present illness Narrative* Celso Garibay, [...] has a history of remote CABG, remote DE, remote PCI's before and after her CABG [...] Assessment/Plan 1. Atherosclerosis of coronary artery of blue lake heart without angina pectoris, unspecified vessel or lesion type 2. History of coronary artery bypass graft 3. Ischemic cardiomyopathy 4. Essential hypertension, benign documented [facility] Work Phone: 1(851) 639-806811-14-2023 Instructions* Patient Instructions* Ej Braswell MA - [...] time of your visit. documented in this encounterA[facility] Work Phone: 1(669) 946-632709-18-2023 Hospital Discharge instructions* Discharge Instructions* Lissa Ocasio [...] call if excessive. Call the office at [phone] ([place]) [phone] ([place]) for an appointment in 2 weeks. documented in [address] encounterB[facility] History of Present illness Narrative* Sejal Por RN - 06/06/2023 11:34 AM EDT Patient [...] with Dr. Engel. documented in this encounterBON [facility]-20[facility]20[facility] Evaluation note* Encounter Date Diagnosis Assessment Notes Treatment Notes Treatment Clinical Notes Nov, Elevated liver function tests (ICD-10 - R94.5) [facility] Other 02-02-2023 [facility] Evaluation note* Encounter Date Diagnosis Assessment Notes Treatment Notes Treatment Clinical Notes Oct, Abdominal pain (ICD-10 - R10.9) Oct, Common bile duct dilatation (ICD-10 - K83.8) Oct, Elevated liver enzymes (ICD-10 - R74.8) Oct, Constipation (ICD-10 - K59.00) Colonoscopy Start Miralax daily after colonoscopy. Titration dosing discussed with patient. Oct, Colon cancer screening (ICD-10 - Z12.11) [facility] Other 01-04-2023 NotePROGRESS NOTE NOTE DATE: 10/04/2022 CHIEF COMPLAINT: Abdominal pain. HISTORY OF PRESENT ILLNESS: The patient is a 57-year-old female with a history of dyslipidemia and gastric bypass surgery, who has been having increasing abdominal pain and flank pain. She was seen yesterday at the [facility] for epigastric and upper abdominal [...] Prophylaxis: Lovenox. DISPOSITION: Home when medically stable.[id number] Hospital Discharge instructions Patient Education 06/02/2022 08:51:52 Kidney Stones, Umnn-zt-Wyeb Kidney Stones Kidney stones are rock-like masses [...] Follow these instructions at home: Medicines Take milc-mad-czirwmt and prescription medicines only as told by [...] Document Reviewed: 02/03/2020 Elsevier Patient Education 2020 [employer] Follow Up Care 05/27/2021 09:10:08 With:LORENA STRAUSS, Santiago Guzman, URL Address: [address] [place] [address]- When: Unknown [facility] evaluation + Plan note Future Appointments Appointment Date:06/01/2023 08:00:00 AM Scheduled Provider:Santiago CARRILLO MD Location:[facility] Appointment Type:URO Office Visit [facility] evaluation + Plan note Future Appointments Appointment Date:04/10/2024 03:00:00 PM Scheduled Provider:JENNIFER MARTINO PA-C Location:[facility] Appointment Type:URO Office Visit [facility] evaluation + Plan note Future Scheduled Tests Radiology* XR Abdomen 1 View 08/05/25 [facility] evaluation note* Diagnosis Women's annual routine gynecological examination documented in this encounter [employer] Work Phone: evaluaouyg noteNo assessment information available [facility] Work Phone: Evaluation noteNo InformationNort Clearleap Other Evaluation note* Diagnosis Post-menopausal bleeding Postmenopausal bleeding Inclusion cyst Sebaceous cyst documented in this encounter [facility] BoardwalktechEvaluation note* Diagnosis Atherosclerosis of coronary artery of blue lake heart without angina pectoris, unspecified vessel or lesion type 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 Ischemic cardiomyopathy Other specified forms of chronic ischemic heart disease Essential hypertension, benign documented in this encounter [facility] Work Phone: Evaluation note* Diagnosis Atherosclerosis of coronary artery of blue lake heart without angina pectoris, unspecified vessel or lesion type 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 Essential hypertension, benign Hyperlipidemia, unspecified hyperlipidemia type Acute pancreatitis, unspecified complication status, unspecified pancreatitis type ([facility]) documented in this encounter [facility] Work Phone: Evaluation note* Diagnosis Atherosclerosis of coronary artery bypass graft of blue [place] heart without angina pectoris S/P PTCA (percutaneous transluminal coronary angioplasty) Postsurgical percutaneous transluminal coronary angioplasty status 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 Ischemic cardiomyopathy Other specified forms of chronic ischemic heart disease Essential hypertension Unspecified essential hypertension Mixed hyperlipidemia BMI 30.0-30.9,adult Statin intolerance documented in this encounter [facility] Work Phone: Evaluation note* Diagnosis Dry nose- Primary Other diseases of nasal cavity and sinuses Xerostomia Disturbance of salivary secretion Allergic rhinitis, unspecified seasonality, unspecified trigger documented [facility] encounter [facility] Diagnosis Xerostomia- Primary Disturbance of salivary secretion documented in this encounter [facility]* Diagnosis Acute pain of right wrist- Primary Tendonitis of wrist, right documented in this encounter [facility] HealthcareEvaluation note* Diagnosis Right wrist pain- Primary Pain in joint, forearm Arm weakness Other musculoskeletal symptoms referable to limbs Numbness Disturbance of skin sensation Arm pain, right Pain in soft tissues of limb Ulnar neuropathy of right upper extremity documented in this encounter [facility] HealthcareEvaluation note* Diagnosis Numbness- Primary Disturbance [...] HealthcareHistory and physical note Author Evert Bruno [facility] November 01, 2022 12:40pm Note Date/Time November 01, 2022 1 2:40pm [facility] EN[facility] [address] [place] [address] Gastroenterology H&P Signed Patient: Jose Alberto Saleem MR#: [id number] : 1965 Acct:[id number] Age/Sex: 57 / F Adm Date: 3 Loc: Room: Type: [facility] Attending Dr: Evert Bruno MD [...] signed by Evert Bruno MD> 11/01/[address] [facility] Work Phone: History and physical note Author Evert Bruno [facility] November 02, 2022 2:14pm Note Date/Time November 02, 2022 2 :14pm [facility] [address] [place] [address] Gastroenterology H&P Signed Patient: Jose Alberto Saleem MR#: [id number] : 1965 Acct:[id number] Age/Sex: 57 / F Adm Date: 3 Loc: Room: Type: [facility] Attending Dr: Evert Bruno MD [...] signed by Evert Bruno MD> 11/02/[address] [facility] Work Phone: History general Narrative - Reported* Type Description Date Medical History impaired fasting glucose Medical History heart disease, DE stents, CABG Medical History Hypertension Medical History hyperlipidemia Medical History peanut picker esophogus Surgical History CABG remote history Surgical History gastric bypass 2018 Surgical History multiple kidney stones removed Surgical History appendectomy Surgical History cyst on ovarian removed Surgical History bilateral carpe tunnel surgery 2021 Surgical History cholecystectomy Hospitalization History see surgical hx [facility] Other Hospital course Narrative No data available for this section [facility] Hospital Discharge instructions Additional Instructions DISCHARGE INSTRUCTIONS [...] NOT operate machinery such as power tools, [employer] mowers, snow blowers, sewing machines, etc. for [...] problems. -Follow up with PCP. -Office number [phone]. [facility] Work Phone: Hospital Discharge instructions Additional [...] NOT operate machinery such as power tools, [employer] mowers, snow blowers, sewing machines, etc. for [...] problems. -Follow up with PCP. -Office number [phone]. [facility] Work Phone: Hospital Discharge instructions No data available for this section [facility] InstructionsNot on filedocumented in this encounter [facility] SystemInstructionsNot on filedocumented in this encounter [facility]ructionsNot on filedocumented in this encounter [facility] SystemProgress note No data available for this section [facility] reason for referral (narrative)* Consultation (Routine) - Authorized Specialty Diagnoses / Procedures Referred By Contac t Referred To Contact Cardiology Diagnoses Atherosclerosis of coronary artery of [place] heart without angina pectoris, unspecified vessel or lesion type History of coronary artery bypass graft Procedures Follow Up In Cardiology Celso Garibay, [facility] [address] [place] [address] Celso Garibay DO [address] [facility], [facility] [address] [place] [address] Referral ID Status Reason Start Date Expiration Date V isits Requested Visits Authorized [id number] Authorized 08/14/2023 08/13/2024 1 1 [facility] Work Phone: Reason for visit Narrative* Other Medical (Routine) - Closed Specialty Diagnoses / Procedures Referred By Manfred flynn Referred To Contact Neurology Diagnoses Arm weakness Numbness Arm pain, right Ulnar neuropathy of right upper extremity Procedures EMG AND NERVE CONDUCTION STUDY Raji Byrd, [address] [place] [address] Phone: tel: fax: Rae Louie MD [address] [address] Phone: tel: fax: Referral ID Status Reason Start Date Expiration Date Visits Re quested Visits Authorized [id number] Closed 05/15/2025 11/11/2025 1 1 [facility] Healthcare Summary Purpose Family History Unknown [...] Documents on File Type Date Recorded Patient Site Engineer Expl anation Advance Directives and Living Will Power of Community Leader Documents on File Type Date Recorded Patient Site Engineer Expl anation ACP-Advance Directive ACP-Power of Community Leader Advance Directive Response Recorded Date/ Time Advance [...] She has known history of prior inferior DE, prior stenting, priorthree-vessel CABG, subsequent PCI of [...] adverse reactions to other medications, hypotension. * [place] [employer] is class I * Recommendations, [...] She has a history of prior inferior DE, prior PCI with subsequent three-vessel CABG and [...] She has a history of prior inferior DE, prior PCI with subsequent three-vessel CABG and [...] DATE CREATED AUTHOR AUTHOR'S ORGANIZ ATION 03/26/2018 [facility] DATE CREATED AUTHOR AUTHOR'S ORGANIZ ATION 08/02/2022 [facility] DATE CREATED AUTHOR AUTHOR'S ORGANIZ ATION 08/17/2022 [facility] DATE CREATED AUTHOR AUTHOR'S ORGANIZ ATION 10/17/2022 [facility] DATE CREATED AUTHOR AUTHOR'S ORGANIZ ATION 06/23/2023 [facility] DATE CREATED AUTHOR AUTHOR'S ORGANIZ ATION 07/16/2023 [facility] DATE CREATED AUTHOR AUTHOR'S ORGANIZ ATION 01/19/2024 [facility] DATE CREATED AUTHOR AUTHOR'S ORGANIZ ATION 03/07/2024 [facility] DATE CREATED AUTHOR AUTHOR'S ORGANIZ ATION 08/06/2024 [facility] DATE CREATED AUTHOR AUTHOR'S ORGANIZ ATION 09/15/2024 [facility] DATE CREATED AUTHOR AUTHOR'S ORGANIZ ATION 10/16/2024 [facility] DATE CREATED AUTHOR AUTHOR'S ORGANIZ ATION 01/22/2025 [facility] DATE CREATED AUTHOR AUTHOR'S ORGANIZ ATION 06/15/2025 [facility] DATE CREATED AUTHOR AUTHOR'S ORGANIZ ATION 06/24/2025 [facility] Specialists EPIC Care Teams (unrecognized [...] Active Evert Bruno MD Attending Provider Active Branch Controller Relationship Specialty Start Date End Date Ashley Grigsby MD [address] [place] [address] PCP - General Family Medicine 08/19/19 Branch Controller Relationship Specialty Start Date End Date Ashley Grigsby MD [address] [place] [address] PCP - General Family Medicine 08/19/19 Branch Controller Relationship Specialty Start Date End Date Ashley Grigsby MD [address] [place] [address] PCP - General 08/17/21 Branch Controller Relationship Specialty Start Date End Date Ashley Grigsby MD [address] [place] [address] PCP - General 08/17/21 Branch Controller Relationship Specialty Start Date End Date Ashley Grigsby MD [address] [place] [address] PCP - General 08/17/21 Anita Hammonds, railway signal operatorStation Chief 08/22/24 Branch Controller Relationship Specialty Start Date End Date Ashley Grigsby MD [address] [place] [address] PCP - General 02/22/17 Branch Controller Relationship Specialty Start Date End Date Ashley Grigsby MD [address] [place] [address] PCP - General 02/22/17 Branch Controller Relationship Specialty Start Date End Date Ashley Grigsby MD [address] [place] [address] PCP - General 02/22/17 Branch Controller Relationship Specialty Start Date End Date Ashley Grigsby MD [address] [place] [facility] [place] [address] PCP - General Family Medicine 09/13/23 Branch Controller Relationship Specialty Start Date End Date Ashley Grigsby MD [address] [place] [facility] [place] [address] PCP - General Family Medicine 09/13/23 Branch Controller Relationship Specialty Start Date End Date Ashley Grigsby MD [address] [place] [facility] [place] [address] PCP - General Family Medicine 02/13/25 Branch Controller Relationship Specialty Start Date End Date Ashley Grigsby MD [address] [place] [facility] [place] [address] PCP - General Family Medicine 02/13/25 Branch Controller Relationship Specialty Start Date End Date Ashley Grigsby MD [address] [place] [facility] [place] [address] PCP - General Family Medicine 02/13/25 Branch Controller Relationship Specialty Start Date End Date Ashley Grigsby MD [address] [place] [facility] [place] [address] PCP - General Family Medicine 02/13/25 Branch Controller Relationship Specialty Start Date End Date Ashley Grigsby MD [address] [place] [facility] [place] [address] PCP - General Family Medicine 02/13/25 Branch Controller Relationship Specialty Start Date End Date Ashley Grigsby MD [address] [place] [facility] [place] [address] PCP - General Family Medicine 02/13/25 REASON FOR VISIT (unrecogniz ed section and content) Specialty Diagnoses / Procedures Referred By Manfred flynn Referred To Contact Diagnoses Post-menopausal bleeding Inclusion cyst Post-menopausal bleeding [N95.0] Inclusion cyst [L72.0] Procedures [place] HYSTEROSCOPY BX ENDOMETRIUM&/POLYPC W/WO D&C [place] DESTRUCTION BENIGN LESIONS UP TO 14 DILATATION AND CURETTAGE HYSTEROSCOPY-REMOVAL OF INCLUSION CYST Gaby Phillips, DO [address] [place] [address] [facility] [address] [place] [address] Referral ID Status Reason Start Date Expiration Date Visits Re quested Visits Authorized [id number] 1 1 Reason Comments Annual Exam 1yr Specialty Diagnoses / Procedures Referred By Manfred flynn Referred To Contact Cardiology Diagnoses Atherosclerosis of coronary artery of [place] heart without angina pectoris, unspecified vessel or lesion type History of coronary artery bypass graft Procedures Follow Up In Cardiology Celso Garibay, DO [address] [facility] 2, [address] [address] Phone: tel: fax: Celso Garibay, DO [address] [facility], [facility] [address] [place] [address] Phone: tel: fax: Referral ID Status Reason Start Date Expiration Date V isits Requested Visits Authorized [id number] Authorized 08/14/2023 08/13/2024 1 1 Reason Comments Follow-up [facility] 08/22 Reason Comments Med Refill Reason [...] BE BASED ON THE PRIMARY CLINICAL RECORDS. [facility]. provides no warranty or guarantee of the accuracy or completeness of information in this document.
--- NOTE | 2025-07-06 18:36 | ED.ABDPAIN1 ---
HPI - Abdominal Pain General Chief Complaint: Abdominal Pain Stated Complaint: Abnormal Labs Time Seen by Provider: 07/06/25 17:45 Source: patient Mode of arrival: walk-in History of Present Illness HPI narrative: CC - ABDOMINAL PAIN, POSSIBLE PANCREATITIS Dr. Dejesus's office called over and talk to me about this patient, who they sent over from the office, after her blood tests taken 2 days ago showed elevated lipase and elevated amylase. This patient has a history of pancreatitis. She experienced abdominal pain with nausea that started about 3 or 4 days ago but strange and of her pain is localized to the left side of the abdomen in the right lower quadrant as well as into the back. She had prior gallbladder sludge and had a cholecystectomy. No history of ductal stones. No history of kidney stones. Fever or chills. She has not maintain a clear liquid diet -Bong that she had protein shakes and some nuts today Related Data Home Medications ?Medication ?Instructions ?Recorded ?Confirmed aspirin 81 mg tablet,delayed 81 mg PO DAILY 01/25/24 01/02/25 release cevimeline 30 mg capsule 30 mg PO TID 01/25/24 01/02/25 citalopram 40 mg tablet 40 mg PO DAILY 01/25/24 01/02/25 fluticasone propionate 50 1 spray intranasal BID 01/25/24 01/02/25 mcg/actuation nasal spray,suspension rabeprazole 20 mg tablet,delayed 20 mg PO BID 01/25/24 01/02/25 release tamsulosin 0.4 mg capsule 0.4 mg PO DAILY 01/25/24 01/02/25 amlodipine 2.5 mg tablet 2.5 mg PO DAILY 09/30/24 01/02/25 clopidogrel 75 mg tablet 75 mg PO DAILY 09/30/24 01/02/25 estradiol 0.01% (0.1 mg/gram) 0.25 appful vaginal .every other 09/30/24 01/02/25 vaginal cream day mirabegron 50 mg tablet,extended 50 mg PO .qhs 09/30/24 01/02/25 release 24 hr nitroglycerin 0.4 mg sublingual 0.4 mg sublingual Q5M PRN chest 09/30/24 01/02/25 tablet pain atorvastatin 20 mg tablet 20 mg PO DAILY 01/01/25 04/04/25 vit C 250 mg-vit E 90 mg-zinc 40 1 tab PO BID 10/01/24 01/02/25 mg-copper 1 va-yfcwvx-fyephj capsule (PreserVision AREDS-2) Saccharomyces boulardii 1 cap PO .QD 01/02/25 01/02/25 njwgel-ezsgucut-xzjauw(pork)24,000-76,000-120,000 1 cap PO ACHS 01/02/25 01/02/25 unit capsule,del rel (Creon) Previous Rx's ?Medication ?Instructions ?Recorded hydrocodone 5 mg-acetaminophen 325 1 tab PO Q8H PRN pain 3 days #9 01/03/25 mg tablet tabs hyoscyamine sulfate 0.125 mg 0.125 mg sublingual QID 3 days #12 01/03/25 sublingual tablet tabs ondansetron 4 mg disintegrating 4 mg PO Q8H PRN nausea and 01/03/25 tablet vomiting 48 hours #6 tabs Allergies Allergy/AdvReac Type Severity Reaction Status Date / Time latex Allergy Severe Anaphylaxis Verified 01/25/24 16:00 Penicillins Allergy Intermediate Hives Verified 01/25/24 16:00 Sulfa (Sulfonamide Allergy Intermediate Verified 01/25/24 16:00 Antibiotics) adhesive tape AdvReac Verified 01/25/24 16:00 [facility] Medical History (Updated 07/06/25 @ 18:39 by Abe Knapp) Pancreatitis ?K85.90 - Acute pancreatitis without necrosis or infection, unspecified (ICD-10) Abdominal pain ?R10.9 - Unspecified abdominal pain (ICD-10) Acute pancreatitis ?K85.90 - Acute pancreatitis without necrosis or infection, unspecified (ICD-10) Acute abdomen ?R10.0 - Acute abdomen (ICD-10) Depression ?F32.A - Depression, unspecified (ICD-10) Cataract ?H26.9 - Unspecified cataract (ICD-10) Hyperlipidemia ?E78.5 - Hyperlipidemia, unspecified (ICD-10) History of prediabetes ?Z87.898 - Personal history of other specified conditions (ICD-10) Hypertension ?I10 - Essential (primary) hypertension (ICD-10) Surgical History H/O rhinoplasty ?Z98.890 - Other specified postprocedural states (ICD-10) History of carpal tunnel release of both wrists ?Z98.890 - Other specified postprocedural states (ICD-10) H/O gastric bypass ?Z98.84 - Bariatric surgery status (ICD-10) H/O heart artery stent ?Z95.5 - Presence of coronary angioplasty implant and graft (ICD-10) History of quadruple bypass ?Z95.1 - Presence of aortocoronary bypass graft (ICD-10) Hx of appendectomy ?Z90.49 - Acquired absence of other specified parts of digestive tract (ICD-10) H/O hernia repair ?Z98.890 - Other specified postprocedural states (ICD-10) ?Z87.19 - Personal history of other diseases of the digestive system (ICD-10) Hx of cholecystectomy ?Z90.49 - Acquired absence of other specified parts of digestive tract (ICD-10) Family History (Updated 01/25/24 @ 15:51 by Tamanna Stoll) Mother Family history of CHF (congestive heart failure) Family history of hypertension Father Family history of CHF (congestive heart failure) Family history of COPD (chronic obstructive pulmonary disease) Brother Family history of CHF (congestive heart failure) Family history of stroke Family history of myocardial infarction Family history of hypertension Grandmother Family history of cancer Sister Family history of hypertension Social History (Updated 02/04/24 @ 20:01 by Carrie Guzman) Within the past year, how often did you have a drink containing alcohol: never Score interpretation: A score less than 3 is consistent with normal alcohol consumption. 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 Highest level of school completed/degree received: Bachelor's degree Are you now , , , , never or living with a partner: In a typical week, how many times do you talk on the telephone with family, friends, or neighbors: 3 or more times per week How often do you get together with friends or relatives: 3 or more times per week How often do you attend druze or catholic services: 1-3 times per year Little interest or pleasure in doing things: not at all Feeling down, depressed, or hopeless: not at all Feel stressed/tense/nervous/anxious/difficulty sleeping: to some extent Do you think of yourself as: straight/heterosexual Gender Identity: female Exam Narrative Exam Narrative: Nurses notes and vital signs reviewed and patient is not hypoxic. afebrile General: Well-appearing and in no apparent distress. Skin: Warm, dry, no pallor noted. Eye: Pupils are equal, round and EOMI. No scleral icterus. Ears, Nose, Mouth, and Throat: Oral mucosa is moist Cardiovascular: Regular Rate and Rhythm without murmur, gallop or rub. Respiratory: No accessory muscle use or respiratory distress. Lungs are clear to auscultation, no wheezing, rales or rhonchi Back: No CVA tenderness Musculoskeletal: normal ROM GI: Abdomen is soft, non-distended. Normal bowel sounds. No solid or pulsatile masses appreciated. Left upper quadrant and right lower quadrant tenderness to palpation. No rebound, guarding, or rigidity noted. Get of Rovsing's. Negative psoas sign. Neurological: A&O x4. No cranial nerve dysfunction observed. No truncal ataxia. Moves all extremities. Sensation intact. Psychiatric: Cooperative and interactive. Normal mood and affect. Constitutional Vital Signs, click to edit/add: Last Vital Signs Temp 97.7 F 07/06/25 17:49 Pulse 67 07/06/25 17:49 Resp 18 07/06/25 17:49 BP 162/85 H 07/06/25 17:49 Pulse Ox 98 07/06/25 17:49 O2 Del Method Room Air 07/06/25 17:49 Course Vital Signs Vital signs: Vital Signs Temperature 97.7 F 07/06/25 17:49 Pulse Rate 67 07/06/25 17:49 Respiratory Rate 18 07/06/25 17:49 Blood Pressure 162/85 H 07/06/25 17:49 Pulse Oximetry 98 07/06/25 17:49 Oxygen Delivery Method Room Air 07/06/25 17:49 Temperature 97.7 F 07/06/25 17:49 Pulse Rate 67 07/06/25 17:49 Respiratory Rate 18 07/06/25 17:49 Blood Pressure 162/85 H 07/06/25 17:49 Pulse Oximetry 98 07/06/25 17:49 Oxygen Delivery Method Room Air 07/06/25 17:49 MDM - Abdominal Pain MDM Narrative Medical decision making narrative: The patient's amylase and lipase were elevated a few days ago. I asked that the ED nurse to establish a peripheral IV, draw blood sent for testing. Patient was ordered to receive IV Zofran, IV Dilaudid and 1 L of normal saline IV fluid while we awaited her test results. I want to see what the lab results show before determining whether or not this patient should undergo imaging. Her amylase and lipase elevation 2 days ago was mild to moderate. Patient signed out to Dr. Blount at 7 PM shift change to review the patient's labs, determine need for any additional testing and determine final disposition. Discharge Plan Discharge Patient Disposition: Still a Patient
[2025-07-06] MEDS: HYDROMORPHONE HCL 1 MG/ML CARTRIDGE IVP (18:46)
[2025-07-06] MEDS: 0.9 % SODIUM CHLORIDE 1,000 ML 999 ML IV (18:46)
[2025-07-06 19:10] LABS: Hematocrit 44.6 % (36.0-48.0); Hemoglobin 14.9 g/dL (12.0-16.0); Immature Granulocytes Abs Auto 0.01 10^3/uL (0.00-0.03); Immature Granulocytes Pct Auto 0.2 % (0.0-0.5); Lymphocytes Absolute Auto 2.2 10^3/uL (1.2-3.8); Mean Corpuscular HGB Conc 33.4 g/dL (29.9-35.2); Mean Corpuscular Hemoglobin 29.9 pg (26.7-34.0); Mean Corpuscular Volume 89.6 fL (81.0-99.0); Platelet Count 235 10^3/uL (150-450); Red Blood Count 4.98 10^6/uL (4.20-5.40); White Blood Count 6.3 10^3/uL (4.0-11.0)
[2025-07-06 19:29] LABS: Alanine Aminotransferase 36 U/L (14-59); Albumin Globulin Ratio 1.1; Albumin Level 3.8 g/dL (3.4-5.0); Alkaline Phosphatase 122 U/L (46-116); Amylase 264 U/L (25-115); Anion Gap 9.6; Aspartate Amino Transferase 21 U/L (15-37); Blood Urea Nitrogen 25.0 mg/dL (7.0-18.0); Calcium 9.9 mg/dL (8.5-10.1); Carbon Dioxide 29.4 mmol/L (21.0-32.0); Chloride 101 mmol/L (98-107); Estimated GFR (African America >60 (>=60 mL/min/1.73m^2); Estimated GFR (Non-African Ame >60 (>=60 mL/min/1.73m^2); Globulin 3.6 g/dL; Glucose 87 mg/dL (74-106); Lipase 402.0 U/L (16.0-77.0); Potassium 4.0 mmol/L (3.5-5.1); Sodium 136 mmol/L (136-145); Total Protein 7.4 g/dL (6.4-8.2)
--- NOTE | 2025-07-06 19:36 | CT_ITS ---
[facility] [place] [id number] Patient Name: JOSE ALBERTO SALEEM MRN: [id number] date: 1965 Sex: F Assigned Patient Location: ER Current Patient Location: ER Accession/Order Number: [id number] Exam Date: 07/06/2025 19:48 Report Date: 07/06/2025 20:28 At the request of: RENAN GONSALVES MD Procedure: CT abdomen pelvis w con CT ABDOMEN AND PELVIS WITH INTRAVENOUS CONTRAST: CLINICAL HISTORY: pancreatitis COMPARISON: CT abdomen pelvis 09/30/2024 TECHNIQUE: Spiral images were obtained through the abdomen and pelvis following the administration of intravenous contrast. This CT exam was performed using one or more following dose reduction techniques: Automated exposure control, adjustment of the mA and/or kV according to patient size, or use of iterative reconstruction technique. FINDINGS: Lung Bases: [Hypoventilatory changes.] Organs:Cholecystectomy. Right renal cyst. Liver, spleen, adrenals, kidneys, and pancreas unremarkable. No peripancreatic inflammatory changes or loculated fluid collections. Common bile duct 7 mm. Likely chronic finding.[ GI: Mild to moderate stool burden throughout the colon.[No bowel obstruction. Minimal scattered colonic diverticulosis. Evidence of gastric bypass Pelvis:[Bladder unremarkable. Uterus unremarkable. No adnexal mass.] Peritoneum/Retroperitoneum:Moderate plaque nonaneurysmal aorta.[No free air or free fluid no bulky adenopathy. Abd wall/Bones:Multilevel degenerative changes of involving the lumbar facet joints.[ CT/CT abdomen pelvis w con IMPRESSION: Negative acute inflammatory process or bowel obstruction. Impression dictated by: Dylon Alejandra M.D. 07/06/2025 8:28 PM Dictation Location: [id number] Electronically authenticated by: [id number] Date: 07/06/2025 20:28
[2025-07-06] MEDS: DIPHENHYDRAMINE HCL 50 MG/ML VIAL 25 MG IVP (19:59)
--- OUTSIDE RECORDS SUMMARY | 2025-07-06 22:56 | XMS_ITS | CCD ---
Author Organization [facility] Care Team Providers Care Multi Disciplined Language Analyst Name Role Phone UNKNOWN, PROVIDER Unavailable Unavailable ASHLEY GRIGSBY Unavailable Unavailable UNKNOWN, PROVIDER Unavailable Unavailable ASHLEY GRIGSBY Unavailable Unavailable Ashley Grigsby Primary Care Provider Ashley Grigsby Unavailable Unavailable Unavailable Ashley Grigsby MD Primary Care Provider [phone] Unavailable Unavailable Ashley Grigsby Primary Care Physician [phone] DR CELSO GARIBAY Admitting Unavailabl e [place], [...] DR ASHLEY GRIGSBY Consulting Unavailable MD Ashley Grigbsy Primary Care Provider [phone] MD Evert Bruno Attending Provider Evert Bruno Unavailable MD Ashley Grigsby Primary Care Provider [phone] MD Evert Bruno Attending Provider Ashley Grigsby MD Primary Care Provider [phone] GABY PHILLIPS Admitting Unavail able GABY PHILLIPS Attending Unavail able ASHLEY GRIGSBY M Primary Care Unavailable HOY, ASHLEY M Primary Care Unavailable Ashley Grigsby MD Primary Care Provider [phone] STEPHANIE BERGER Attending Unavailable SEB, ASHLEY M [...] Emergency Provider Donis Arroyo DO Admit Provider [phone] Donis Arroyo DO Attending Provider Anita [...] Unavailable Ashley Grigsby MD Primary Care Provider [phone] Ashley Grigsby MD Primary Care Provider [phone] CHAUNCEY KIMBLE Referring Unavailable ASHLEY GRIGSBY Primary Care Unavailable RADHA JAIMES Referring Unavailable ASHLEY GRIGSBY Primary Care Unavailable Ashley Grigsby MD Primary Care Provider [phone] NARANDI, ALI Attending Unavailable NAWRAS, ALI Referring [...] 017 Other (See Comments), Shortness of breath [place], [place] (20 sources) Latex; Translations: [LATEX] Propensity to adverse reactions to drug 006 Anaphylaxis, Shortness Of Breath, Anaphylaxis (disorder) [place] (16 sources) Penicillins; Translations: [penicillins] Propensity to adverse reactions to drug 006 Hives, Anaphylaxis (disorder) [place] (3 sources) rosuvastatin Drug Allergy 019 [place] (20 sources) Sulfamethoxazole / Trimethoprim; Translations: [Bactrim TABS] Drug Allergy 019 H[place] (11 sources) natural latex rubber Allergy to substance (finding) [facility] Work Phone: (11 sources) Penicillins; Translations: [Penicillins] Allergy to drug (finding) Rash [facility] Work Phone: (20 sources) rosuvastatin; Translations: [Crestor TABS] Drug Allergy 017 Elevated liver enzymes level (finding), Other, Other (See Comments) [facility] (16 sources) Sulfonamides (Antibiotic); Translations: [Sulfa Drugs] Allergy to drug (finding) Hives [facility] (20 sources) levoFLOXacin; Translations: [levofloxacin] Drug Allergy 017 Other (See Comments), Candidiasis (disorder) [employer] Phone: (8 sources) Phenazopyridine; Translations: [PHENAZOPYRIDINE HCL] Drug Allergy Nausea And Vomiting [employer] Phone: (3 sources) Simvastatin; Translations: [SIMVASTATIN] Drug Allergy [facility] Phone: (15 sources) Sulfonamides (Antibiotic) Propensity to adverse reactions to drug Other (See Comments), Hives, Shortness of breath [facility] (12 sources) Tobramycin; Translations: [tobramycin] Drug Allergy 023 Eruption of skin (disorder), Rash [facility] (1 source) Baclofen Drug Allergy [facility] (1 source) Latex Drug allergy (disorder) [facility] (5 sources) levoFLOXacin; Translations: [Levaquin] Drug Allergy thrush [facility] (1 source) Penicillins Drug allergy (disorder) [facility] (1 source) rosuvastatin Drug Allergy [facility] (1 source) Sulfonamides (Antibiotic) Drug allergy (disorder) [facility] (11 sources) rosuvastatin; Translations: [ROSUVASTATIN] Drug Allergy 017 Gastrointestinal Upset [facility] (5 sources) Sulfamethoxazole; Translations: [sulfamethoxazole] Drug Allergy 023 Hives, Hives, ([place]) 08/08/2011 [facility] (20 sources) Trimethoprim; Translations: [trimethoprim] Drug Allergy 023 Hives, Hives, ([place]) 08/08/2011 [facility] (6 sources) Fenofibrate; Translations: [FENOFIBRATE] Drug Allergy 009 ([place]) 08/08/2011 [facility] [employer] (3 sources) Penicillin Drug Allergy ([place]) 08/08/2011 [employer] Other (9 sources) Substance with sulfonamide structure and antibacterial mechanism of action (substance) Drug allergy Shortness of breath, Hives [employer] Other (7 sources) Penicillins Propensity to adverse reactions to drug Hives, Rash [facility] [employer] (14 sources) Tobramycin Drug Allergy Rash [facility] [employer] (7 sources) Fenofibrate; Translations: [FENOFIBRATE MICRONIZED] Drug Allergy [facility] (7 sources) Sulfonamides (Antibiotic); Translations: [SULFA (SULFONAMIDE ANTIBIOTICS)] Propensity to adverse reactions to drug (disorder) Unknown Reaction [facility] (1 source) Baclofen Drug Allergy [facility] (1 source) Fenofibrate Drug Allergy [facility] (1 source) Latex Drug allergy (disorder) [facility] (1 source) levoFLOXacin Drug Allergy [facility] (1 source) Penicillins Drug allergy (disorder) [facility] (13 sources) Baclofen Drug Allergy 017 [...] to adverse reactions to drug (disorder) 006 [facility] Medications Current Medications Medication Drug Class(es) [...] Atherosclerosis of coronary artery bypass graft of [place] heart without angina pectoris , History of [...] Active [facility] Calcium 600 MG [...] Active Start: 11-01-2022 take 4 tablets by [facility] once daily Citalopram 10 mg tablet Active 40 MG PO Daily November 01, 2022 12:00am Start: 11-01-2022 take 10 mg by mouth once daily Citalopram Active 10 MG PO Daily November 01, 2022 1:00am End: 08-13-2024 citalopram (CeleXA) 20 MG ta blet Take 20 mg by mouth Active take 2 tablets by [facility] once daily citalopram (CELEXA) 10 MG tablet Take 2 tablets by mouth daily 0 Active clopidogrel 75 mg oral tablet (11 sources) P2Y12 Platelet Inhibitor Start: 09-05-2024 End: 09-05-2025 take 1 tablet by mouth once daily clopidogrel (Plavix) 75 mg tablet Indications: Atherosclerosis of coronary artery bypass graft of [place] heart without angina pectoris , S/P PTCA [...] mouth two times weekly Vitamin D (Ergocalciferol) 51764 UNIT 1 capsule Orally TWICE a Week [...] 3 weeks, then 3x per week thereafter, [id number], 160, cm, 04/10/24 15:13:00 EDT, Height/Length Dosing, [...] Start: 04-30-2020 fluticasone 0. 05 mg/inh Nasal [place] Refill(s) 0 Start Date: 04/30/20 Status: Ordered Start: 10-24-2017 End: 02-29-2024 take 2 spray(s) nasal route once daily fluticasone (FLONASE) 50 mcg/actuation nasal spray Indications: Chronic pansinusitis Administer 2 sprays into each nostril daily. 16 g 11 10/24/2017 02/29/2024 Discontinued (Duplicate Listing) fluticasone 0.05 mg/inh Nasal [place] (3 sources) Start: 04-30-2020 fluticasone 0.05 mg/inh Nasal [place] Refill(s) 0 Start Date: 04/30/20 Status: Ordered [...] Refills(s) 11, Pharmacy: [facility] #[id number], 160, cm, 04/10/24 15:13:00 EDT, Height/Length Dosing, [...] 2 PO) Take by mouth 0 Active skmjqexm-pbbe-BO-arley cium &mins (THERAGRAN-M) 9 mg iron-400 mcg tablet (3 sources) upikqudi-jhwc-MR - calcium &mins (THERAGRAN-M) 9 mg iron-400 [...] mouth 2 times a day. 0 Active Ehfhfjopoqxo-Xqg-Nxkg-Fa-Vit K (Bariatric Multivitamins) 45 mg iron- 800 mcg-120 mcg Capsule (4 sources) Start: 11-01-2022 take 1 capsule by mouth twice daily Ijccjpawdgyn-Hzt-Qymz-Fa-Vit K (Bariatric Multivitamins) 45 mg iron- 800 mcg-120 mcg Capsule Active 1 CAP PO Twice daily November 01, 2022 1:00am Start: 11-01-2022 take 1 capsule by [facility] twice daily Bedfavfhnotn-Ogg-Kjiw-Fa-Vit K (Bariatri c Multivitamins) 45 mg iron- [...] tablet Indications: Atherosclerosis of coronary artery of [place] heart without angina pectoris, unspecified vessel or [...] April 21, 2018 11:01pm polyethylene glycol 3350 605871 mg / potassium chloride 2970 mg / sodium bicarbonate 6740 mg / sodium chloride 5860 mg / sodium sulfate 99670 mg powder for oral solution (3 sources) [...] mouth 3 times a day. Active sod vqqsj-twiosn-elxjsx bottle (NEILMED SINUS RINSE COMPLETE) packet with rinse device nasal solution (3 sources) Start: 09-13-2017 take 1 dose nasal route once daily sod rulpt-viedbx-ullzvv bottle (NEILMED SINUS RINSE COMPLETE) packet with [...] Ordered Start: 04-17-2018 take 1 capsule by [facility] once daily tamsulosin (Flomax) 0.4 [...] Refills(s) 11, Pharmacy: [facility] #[id number], 160, cm, 04/10/24 15:13:00 EDT, Height/Length Dosing, 74, kg, 04/10/24 15:13:00 EDT, Weight Dosing Start Date: 04/10/24 Stop Date: 04/05/25 Status: Ordered vit C,T-Xq-zzpbw-lutein-zeaxan (PRESERVISION AREDS-2) 250-90-40-1 mg capsule (1 source) vit C,E-Lt-tksju-lutein-z eaxan (PRESERVISION AREDS-2) 250-90-40-1 mg capsule Take [...] a day for 30 day(s) Active vitamins A,C,A-kdua-yvchpz (1 source) Start: 08-19-2024 vitamins A,C,J-obxx-cnohhi Active PO August 19, 2024 12:00am Zyrtec [...] ascorbic acid 226 mg / beta carotene 02962 unt / cuprous oxide 0.8 mg / [...] / neomycin 3.5 mg/ml / polymyxin b 60939 unt/ml ophthalmic suspension (3 sources) Aminoglycoside Antibacterial, Polymyxin-class Antibacterial, Corticosteroid Start: 06-13-2021 take 2 drop(s) into the eye(s) four times daily Neomycin-Polymyxin- HC 3.5-49017-5 Ophthalmic Suspension instill 2 drops INTO AFFECTED [...] sources) Coronary atherosclerosis; Translations: [Coronary atherosclerosis of [place] coronary artery] Onset: 2 Chronic Coronary atherosclerosis [...] 4 08-18-2024 Episodic Other aftercare (1 source) 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 Orbits if needed. Please contact patient to schedule Orders Onlyon 05-19-2025 Orders Only [id number] Diana Saleem ttrene 1965 F Date Provider Department Center 05/19/2025 [id number] WATSON [facility] Family History Problem Relation Age of Onset Hyperlipidemia Mother Hyperlipidemia Father Hyperlipidemia Brother Heart attack Brother Family Status - Relation Status Age at Mother Father Brother Brother Normal [facility] Telephoneon 05-19-2025 Telephone [id number] Diana Saleem ttrene 1965 F Date Provider Department Center 05/19/2025 [facility] Family History Problem Relation Age of Onset Hyperlipidemia Mother Hyperlipidemia Father Hyperlipidemia Brother Heart attack Brother Family Status - Relation Status Age at Mother Father Brother Brother Normal [facility] XR Wrist - right 2 Viewson 0 05-15-2025 Image result: AP and Lateral Right Wrist: Bone Structure: No acute fracture or dislocation Joint Spaces: The carpal joint spaces are well preserved, minimal joint space narrowing mostly radial with subchondral sclerosis. Scapho-lunate interval within normal limit. Soft tissue: No swelling or calcification Impression: No acute bony process Right Wrist with minimal degenerative changes. Count includes the [facility] Radiology Study observation (narrative) [facility] 36on 05-14-2025 36 [employer] spoke with Justo kang the hospital pharmacy technician and clarify some information and that is what was needed so hopefully soon be able to get soon. Normal [facility] Telephoneon 05-14-2025 Telephone [id number] Diana Saleem 1965 F Date Provider Department Center 05/14/2025 [id number] WATSON [facility] Medical [facility] Family History Problem Relation Age of Onset Hyperlipidemia Mother Hyperlipidemia Father Hyperlipidemia Brother Heart attack Brother Family Status - Relation Status Age at Mother Father Brother Brother [facility] Telephone [id number] SaleemDiana orozco tte 1965 [facility] Department [place] 05/14/2025 GISELA OMER [facility] Family History Problem Relation Age of Onset Hyperlipidemia Mother Hyperlipidemia Father Hyperlipidemia Brother Heart attack Brother Family Status - Relation Status Age at Mother Father Brother Brother [facility] 29on 05-08-2025 29 Addended by: ANALISA TAYLOR on: 05/14/2025 03:06 PM Modules accepted: [facility] 29 Addended by: ANALISA TAYLOR on: 05/12/2025 05:18 PM Modules accepted: [facility] Follow-Upon 05-08-2025 Follow-Up [id number] SaleemDiana ttrene 1965 [facility] 05/08/2025 CHAUNCEY CESPEDES [facility] GI [facility] Family History Problem Relation Age of Onset Hyperlipidemia Mother Hyperlipidemia Father Hyperlipidemia Brother Heart attack Brother Family Status - Relation Status Age at Mother Father Brother Brother Level of Service:86525 [place] OFFICE/OUTPATIENT ESTABLISHED MOD MDM 30 MIN () Reason for Visit and Comments: Follow-up [868321] [facility] 36on 03-25-2025 36 I called the patient [...] Dr. Kimble is aware of the plan. [facility] Telephoneon 03-25-2025 Telephone [id number] SaleemDiana ttrene 1965 Date Provider Department Center 03/25/2025 [id number] MARTIN [facility] Family History Problem Relation Age of Onset Hyperlipidemia Mother Hyperlipidemia Father Hyperlipidemia Brother Heart attack Brother Family Status - Relation Status Age at Mother Father Brother Brother [facility] 36on 03-20-2025 36 03/25/25@1020 Left pa tient [...] should she follow up in the clinic. [facility] Telephoneon 03-20-2025 Telephone [id number] Diana Saleem 1965 Provider Department Center 03/20/2025 GISELA OMER [facility] Family History Problem Relation Age of Onset Hyperlipidemia Mother Hyperlipidemia Father Hyperlipidemia Brother Heart attack Brother Family Status - Relation Status Age at Mother Father Brother Brother [facility] 02-18-2025 36 Called and discussed with jay pt the HIDA and MRCP in details. ----- Message from Gisela sent at 02/11/2025 3:15 PM EDT ----- Patient calling for results and follow up plan. Office visit with you and Dr. Kimble 01/09/25 [facility] 36 ----- Message from Gisela sent at 02/11/2025 3:15 PM EDT ----- Patient calling for results and follow up plan. Office visit with you and Dr. Kimble 01/09/25 [facility] Telephoneon 02-18-2025 Telephone [id number] Diana Saleem ttrene 1965 F Date Provider Department Center 02/18/2025 385SANDRA BETHEA [facility] Family History Problem Relation Age of Onset Hyperlipidemia Mother Hyperlipidemia Father Hyperlipidemia Brother Heart attack Brother Family Status - Relation Status Age at Mother Father Brother Brother Normal [facility] 36on 02-11-2025 36 Patient called me to get results of HIDA scan and then what to do as follow up. I do see the HIDA scan results from 01/30/25 @ [facility] and they are normal will forward to Dr. Martin on of our [facility] [place] to see what further he would like to do. Normal [facility] Telephoneon 02-11-2025 Telephone [id number] Diana Saleem tte 1965 Date Provider Department Center 02/11/2025 396GISELA ROCHA [facility] Family History Problem Relation Age of Onset Hyperlipidemia Mother Hyperlipidemia Father Hyperlipidemia Brother Heart attack Brother Family Status - Relation Status Age at Mother Father Brother Brother Normal [facility] NM HIDA W EJECTION FRACTIONo n 01-30-2025 [...] Prado M.D.. Not Vldtd Invalid Interpretation Code [facility] Elastase.pancreatic (Stl) [M ass/Mass]on 01-17-2025 Pancreatic Elastase, F 174 mcg/g Low >200 (Normal) [facility] Comment on above: Result Comment: NOTE Interpretation: Borderline (100-200 mcg/g); Consistent with slight to moderate pancreatic insufficiency Test Performed by: [facility] - [address] [address] Disaster Recovery Manager: Andra Flores Ph.D.; CLIA# [id number] Performed By: #### 2 5907-7 #### [facility] ([id number]) [address] [place] [address], [place] [address] 29on 01-09-2025 29 Addended by: CHAUNCEY KIMBLE on: 01/10/2025 08:32 AM Modules accepted: Level of Service [facility] Follow-Upon 01-09-2025 Follow-Up [id number] Diana Saleem tte 1965 F Date Provider Department Center 01/09/2025 375-CHAUNCEY KIMBLE [facility] Family History Problem Relation Age of Onset Hyperlipidemia Mother Hyperlipidemia Father Hyperlipidemia Brother Heart attack Brother Family Status - Relation Status Age at Mother Father Brother Brother Level of Service:16214 [place] OFFICE/OUTPATIENT ESTABLISHED MOD MDM 30 MIN () Reason for Visit and Comments: Follow-up [148824] - MRI follow up and seen at [facility] and in hospital for 1 day. Will get records. Enzo helped tremendously this time and she came home with it, She just complains of fatigue. PCP Ordered sleep study [facility] 36on 01-02-2025 36 01/02/25@3586 Returned a phone call to patient. She had wanted to follow up with Dr. Chauncey Kimble to let him know she is currently in the ER at [facility] dx with pancreatitis. She had an MRCP on 12/31/24 and if any other lab work needs done to call the Hospital. Normal [facility] Telephoneon 01-02-2025 Telephone [id number] Diana Saleem ttrene 1965 Date Provider Department Center 01/02/2025 GISELA OMER [facility] Family History Problem Relation Age of Onset Hyperlipidemia Mother Hyperlipidemia Father Hyperlipidemia Brother Heart attack Brother Family Status - Relation Status Age at Mother Father Brother Brother [facility] MR ABDOMEN W AND WO CONTRAST MRCPon [...] state. * Benign renal cysts. Electronically signed: Figeuroa Landeros MD. Not Vldtd Invalid Interpretation Code [facility] Follow-Upon 12-12-2024 Follow-Up [id number] Diana Saleem ttrene 1965 F Date Provider Department Center 12/12/2024 CHAUNCEY CESPEDES [facility] Family History Problem Relation Age of Onset Hyperlipidemia Mother Hyperlipidemia Father Hyperlipidemia Brother Heart attack Brother Family Status - Relation Status Age at Mother Father Brother Brother Level of Service:17194 [place] OFFICE/OUTPATIENT NEW MODERATE MDM 45 MINUTES (GC) Reason for Visit and Comments: Pancreatitis [393318] - Pain when she stresses or when she eats. She has trouble with losing weight as she always feels bloated and gassy. Normal [facility] XR Wrist - right 2 Viewson 0 11-26-2024 Imaging Result: AP and Lateral Right Wrist: Bone Structure: No acute fracture or dislocation Joint Spaces: The carpal joint spaces are well preserved, mild joint space narrowing and remodeling with subchondral sclerosis distal radius favoring arthritis. , Scapho-lunate interval within normal limit. Soft tissue: No swelling or calcification Impression: No acute bony process Right Wrist Count includes the [facility] Radiology Study observation (narrative) [facility] XR FOREARM RT 2 VWSon 2024 XR FOREARM RT 2 VWS XR FOREARM RT 2 VWS CLINICAL INFORMATION: Right arm pain TECHNIQUE: XR FOREARM RT 2 VWS 2 views right forearm are obtained. There is no acute osseous, articular, or soft tissue abnormality. IMPRESSION: Negative exam. Finalized by Afshin Barrett MD on 10/11/2024 1:59 PM Normal [facility] ECG 12 lead ECGon 08-22-2024 ECG 12 lead ECG [facility] [place] [address] [place] [id number] Electrocardiograph Report Signed Patient: Jose Alberto Saleem MR#: [id number] : 1965 Acct:[id number] Age/Sex: 59 / F ADM Date: 08/20/24 Loc: Room: [address] [place] [address] Type: DIS IN Attending Dr: Kaiser Quijano [...] abnormality Abnormal ECG Confirmed by Bella Stein ([id number]) on 08/22/2024 11:33:07 PM Referred By: Bella Stein Electronically Signed By: Bella Stein Transcribed By: MUS Signed By Bella Stein MD 4 2333 Normal [facility] Troponin I High Sensitivityo n 08-22-2024 Troponin I High Sensitivity 1211.6 pg/mL Off scale high 0.0-15.0 [facility] Comment on above: Result Comment: Crit ical Result : Called to and read back by: ROB MCDONALD at: 08/22/2024 06:38:37 by:RAMONA PERFORMED BY: [place] [address] PATHOLOGIST RESEARCH WORKER [employer] JANA OLMEDO M.D. Performed By: #### H S TROP ####[facility] [address] [place] [address] [facility] Blood Urea Nitrogenon 2023 Urea nitrogen [Mass/Vol] 14 mg/dL Normal 7-25 [facility] Comment on above: Performed By: #### C REAT, BUN, PP, CBC, LYTES ####[place] [address] [place] [address] [facility] Coagulation Profileon 2023 aPTT Coag (Bld) [Time] 35.9 s Normal 25.1-36.5 [facility] Comment on above: Result Comment: A he matocrit value greater than 55% may lead to inaccurate results in coagulation testing. Patients having hematocrit values >55% require a special collection tube for coagulation studies. Please contact the laboratory at [phone] for redraw instructions. PERFORMED BY: [address] [place] [id number] PATHOLOGIST RESEARCH WORKER [employer] JANA OLMEDO M.D. Performed By: #### C REAT, BUN, PP, CBC, LYTES ####[place] [id number] [facility] INR Coag (PPP) [Relative time] 1.1 {INR} Normal [facility] Comment on above: [...] #### C REAT, BUN, PP, CBC, LYTES ####[place] [id number] [facility] PT Coag (PPP) [Time] 12.2 s Normal 9.0-12.9 [facility] Comment on above: Result Comment: A he matocrit value greater than 55% may lead to inaccurate results in coagulation testing. Patients having hematocrit values >55% require a special collection tube for coagulation studies. Please contact the laboratory at [phone] for redraw instructions. Performed By: #### C REAT, BUN, PP, CBC, LYTES ####[address] Complete Blood Count Auto Di ffon 08-21-2024 Basophils (Bld) [#/Vol] 0.0 10*3/uL Normal 0.0-0.2 [facility] Comment on above: Result Comment: PERF ORMED BY: [facility] [address] [place] [address] PATHOLOGIST RESEARCH WORKER [employer] JANA OLMEDO M.D. Performed By: #### C REAT, BUN, PP, CBC, LYTES ####[address] Basophils/100 WBC (Bld) 0.3 % Normal . [facility] Comment on above: Performed By: #### C REAT, BUN, PP, CBC, LYTES ####[address] Eosinophils (Bld) [#/Vol] 0.2 10*3/uL Normal 0.0-0.45 [facility] Comment on above: Performed By: #### C REAT, BUN, PP, CBC, LYTES ####[address] Eosinophils/100 WBC (Bld) 3.9 % Normal . [facility] Comment on above: Performed By: #### C REAT, BUN, PP, CBC, LYTES ####[address] Erythrocyte distribution width (RBC) [Ratio] 12.7 % Normal 11.9-15.3 [facility] Comment on above: Performed By: #### C REAT, BUN, PP, CBC, LYTES ####[address] Hematocrit (Bld) [Volume fraction] 42.5 % Normal 34.0-46.4 [facility] Comment on above: Performed By: #### C REAT, BUN, PP, CBC, LYTES ####[address] Hemoglobin (Bld) [Mass/Vol] 14.6 g/dL Normal 11.8-15.4 [facility] Comment on above: Performed By: #### C REAT, BUN, PP, CBC, LYTES ####[address] Lymphocytes (Bld) [#/Vol] 1.7 10*3/uL Normal 1.00-4.8 [facility] Comment on above: Performed By: #### C REAT, BUN, PP, CBC, LYTES ####[address] Lymphocytes/100 WBC (Bld) 35.0 % Normal . [facility] Comment on above: Performed By: #### C REAT, BUN, PP, CBC, LYTES ####[address] MCH (RBC) [Entitic mass] 30.8 pg Normal 24.7-34.3 [facility] Comment on above: Performed By: #### C REAT, BUN, PP, CBC, LYTES ####[address] MCV (RBC) [Entitic vol] 89.8 fL Normal 80-100 [facility] Comment on above: Performed By: #### C REAT, BUN, PP, CBC, LYTES ####[address] Mean Corpuscular HGB Conc 34.3 g/dL Normal 32.0-35.0 [facility] Comment on above: Performed By: #### C REAT, BUN, PP, CBC, LYTES ####[address] Monocytes (Bld) [#/Vol] 0.5 10*3/uL Normal 0.0-0.8 [facility] Comment on above: Performed By: #### C REAT, BUN, PP, CBC, LYTES ####[address] Monocytes/100 WBC (Bld) 10.9 % Normal . [facility] Comment on above: Performed By: #### C REAT, BUN, PP, CBC, LYTES ####[address] Neutrophils (Bld) [#/Vol] 2.5 10*3/uL Normal 1.8-7.7 [facility] Comment on above: Performed By: #### C REAT, BUN, PP, CBC, LYTES ####[address] Neutrophils/100 WBC (Bld) 49.9 % Normal . [facility] Comment on above: Performed By: #### C REAT, BUN, PP, CBC, LYTES ####[address] NRBC% 0.1 /100{WBC} Normal 0-0.5 [facility] Comment on above: Performed By: #### C REAT, BUN, PP, CBC, LYTES ####[address] Platelet mean volume (Bld) [Entitic vol] 7.7 fL Normal 6.3-10.7 [facility] Comment on above: Performed By: #### C REAT, BUN, PP, CBC, LYTES ####[address] Platelets (Bld) [#/Vol] 172 10*3/uL Normal 150-450 [facility] Comment on above: Performed By: #### C REAT, BUN, PP, CBC, LYTES ####[address] RBC (Bld) [#/Vol] 4.73 10*6/uL Normal 3.60-5.00 [facility] Comment on above: Performed By: #### C REAT, BUN, PP, CBC, LYTES ####[place] [address] [place] [id number] [facility] WBC (Bld) [#/Vol] 4.9 10*3/uL Normal 3.8-11.6 [facility] Comment on above: Performed By: #### C REAT, BUN, PP, CBC, LYTES ####[place] [address] [place] [address] [facility] Creatinineon 08-21-2024 Creatinine [Mass/Vol] 0.61 mg/dL Normal 0.60-1.20 [facility] Comment on above: Performed By: #### C REAT, BUN, PP, CBC, LYTES ####[place] [id number] [facility] Creatinine Clr Calc Pharmacy 97.73 Normal [facility] Comment on above: Result Comment: PERF ORMED BY: [place] [address] PATHOLOGIST RESEARCH WORKER [employer] JANA OLMEDO M.D. Performed By: #### C REAT, BUN, PP, CBC, LYTES ####[place] [id number] [facility] GFR/1.73 sq M.predicted MDRD (S/P/Bld) [Vol rate/Area] mL/min/{1.73_m2} Normal [facility] Comment on above: Performed By: #### C REAT, BUN, PP, CBC, LYTES ####[place] [id number] [facility] ECG 12 lead ECGon 08-21-2024 ECG 12 lead ECG [facility] Main [place] [address] [place] [address] Electrocardiograph Report Signed Patient: Jose Alberto Saleem MR#: [id number] : 1965 Acct:[id number] Age/Sex: 59 / F ADM Date: 08/20/24 Loc: Room: [address] [place] [address] Type: DIS IN Attending Dr: Kaiser Quijano [...] abnormality Abnormal ECG Confirmed by Bella Stein ([id number]) on 08/22/2024 11:33:52 PM Referred By: Bella Stein Electronically Signed By: Bella Stein Transcribed By: [facility] Signed By Bella Stein MD 4 2333 Normal [facility] Electrolyteson 08-21-2024 Anion gap [Moles/Vol] 11.0 mmol/L Normal 6.0-15.0 Th e [facility] Physician [facility] Comment on above: Performed By: #### C REAT, BUN, PP, CBC, LYTES ####[address] Chloride [Moles/Vol] 105 mmol/L Normal 98-107 [facility] Comment on above: Performed By: #### C REAT, BUN, PP, CBC, LYTES ####[address] CO2 [Moles/Vol] 27.9 mmol/L Normal 21.0-31.0 The [facility] Comment on above: Performed By: #### C REAT, BUN, PP, CBC, LYTES ####[address] Potassium [Moles/Vol] 3.9 mmol/L Normal 3.5-5.1 [facility] Comment on above: Performed By: #### C REAT, BUN, PP, CBC, LYTES ####[address] Sodium [Moles/Vol] 140 mmol/L Normal 136-145 [facility] Comment on above: Performed By: #### C REAT, BUN, PP, CBC, LYTES ####[facility] [place] [address] [facility] NM lia perf SPECT rest stron 08-20-2024 NM lia perf SPECT rest str [facility] Main [place] [id number] Nuclear Medicine Report Signed Patient: Jose Alberto Saleem MR#: [id number] : 1965 Acct:[id number] Age/Sex: 59 / F ADM Date: 08/18/24 Loc: Room: [address] [place] [address] Type: ADM INOo Attending Dr: Chucky Dunn [...] Bella Stein M.D.08/20/2024 3:56 PM Dictation Location: [place] [address] Transcribed By: [facility] 08/20/24 1555 Dictated By: Bella Stein MD 08/20/24 1552 Signed By: 08/20/24 1556 Normal [facility] A1C with Estimated Average G rebekahlio 08-19-2024 Glucose [Mass/Vol] 117 mg/dL Normal [facility] Comment on above: Result Comment: PERF ORMED BY: [address] [address] PATHOLOGIST RESEARCH WORKER [employer] JANA OLMEDO M.D. Performed By: #### A [address] [facility] eA, TROP ####[facility] [place] [address] [facility] HbA1c (Bld) [Mass fraction] 5.7 % High 4.3-5.6 [facility] Comment on above: Result Comment: Incr eased risk for diabetes: 5.7 - 6.4 diabetes: >6.4 glycemic control for adults with diabetes: <7.0 Performed By: #### A [address] [facility] eA, HS TROP ####[facility] Z[address] [place] [address] [facility] ECG 12 lead ECGon 08-19-2024 ECG 12 [place] [address] Electrocardiograph Report Signed Patient: Jose Alberto Saleem MR#: [id number] 571 : 1965 Acct:[id number] Age/Sex: 59 / F ADM Date: 08/18/24 Loc: Room: [address] [place] [address] Type: ADM INOo Attending Dr: Chucky Dunn [...] abnormality Abnormal ECG Confirmed by Bella Stein ([id number]) on 08/21/2024 12:00:39 AM Referred By: Bella Stein Electronically Signed By: Bella Stein Transcribed By: MUS Signed By Bella Stein MD 4 0000 Normal [facility] ECG 12 lead ECG [facility] [place] [address] Electrocardiograph Report Signed Patient: Jose Alberto Saleem MR#: [id number] 571 : 1965 Acct:[id number] Age/Sex: 59 / F ADM Date: 08/18/24 Loc: 3T Room: [address] [place] [address] Type: ADM INOo Attending Dr: Chucky Dunn [...] rhythm Leftward axis Confirmed by Bridgett Monreal ([id number]) on 08/20/2024 11:52:24 PM Referred By: Bella Stein Electronically Signed By: Bridgett Monreal Transcribed By: MUS Signed By Bridgett Monreal MD 08/20/24 2352 Normal [facility] Troponin I High Sensitivityo n 08-19-2024 Troponin I High Sensitivity 4.6 pg/mL Normal 0.0-15.0 [facility] Comment on above: Result Comment: PERF ORMED BY: [place] [address] PATHOLOGIST RESEARCH WORKER [employer] JANA OLMEDO M.D. Performed By: #### A 1C [facility], [facility] ####[place] [id number] [facility] X-ray reportOrdered By: Anna Wick on 08-19-2024 [place] [address] XRay Report Signed Patient: Jose Alberto Saleem MR#: [id number] : 1965 Acct:[id number] Age/Sex: 59 / F ADM Date: 4 Loc: 3T Room: [address] [place] [address] Type: ADM INOo Attending Dr: Donis Arroyo [...] Thelma Wick M.D.08/19/2024 12:10 AM Dictation Location: [place] [address] Transcribed By: [facility] 08/19/249 Dictated By: Thelma Wick MD 08/18/242210 Signed By: 08/19/249 [facility] Work Phone: Alanine aminotransferase [En zymatic activity/volume] in Serum or PlasmaOrdered By: Lynnette Chapman on 08-18-2024 ALT [Catalytic activity/Vol] Alanine aminotransferase [Enzymatic activity/volume] in Serum or Plasma 7-52 [facility] Albumin [Mass/volume] in Ser um or Plasma by Bromocresol green (BCG) dye binding methoOrdered By: Lynnette Chapman on 08-18-2024 Albumin BCG dye [Mass/Vol] Albumin [Mass/volume] in Serum or Plasma by Bromocresol green (BCG) dye binding metho 3.5-5.7 [facility] Alkaline phosphatase [Enzyma tic activity/volume] in Serum or PlasmaOrdered By: Lynnette Chapman on 08-18-2024 ALP [Catalytic activity/Vol] Alkaline phosphatase [Enzymatic activity/volume] in Serum or Plasma 34-104 [facility] Aspartate aminotransferase [ Enzymatic activity/volume] in Serum or PlasmaOrdered By: Lynnette Chapman on 08-18-2024 AST [Catalytic activity/Vol] Aspartate aminotransferase [Enzymatic activity/volume] in Serum or Plasma 13-39 [facility] B-Type Natriuretic Peptideon 08-18-2024 Natriuretic peptide B (Bld) [Mass/Vol] 31.0 pg/mL Normal 5-100 [facility] Comment on above: Result Comment: PERF ORMED BY: [place] [address] PATHOLOGIST RESEARCH WORK[employer] JANA OLMEDO M.D. Performed By: #### H S TROP, LIPASE, PT, BMP, HEPATIC, CK, CBC, BNP ####[address] Basic Metabolic Panelon 08-01 Anion gap [Moles/Vol] 10.7 mmol/L Normal 6.0-15.0 [facility] Comment on above: Performed By: #### H S TROP, LIPASE, PT, BMP, HEPATIC, CK, CBC, BNP #### [address] Performed By: #### H S TROP, LIPASE, PT, BMP, HEPATIC, CK, CBC, BNP ####[address] Calcium [Mass/Vol] 10.1 mg/dL Normal 8.6-10.3 [facility] Comment on above: Performed By: #### H S TROP, LIPASE, PT, BMP, HEPATIC, CK, CBC, BNP #### [address] Performed By: #### H S TROP, LIPASE, PT, BMP, HEPATIC, CK, CBC, BNP ####[address] Chloride [Moles/Vol] 102 mmol/L Normal 98-107 [facility] Comment on above: Performed By: #### H S TROP, LIPASE, PT, BMP, HEPATIC, CK, CBC, BNP #### [address] Performed By: #### H S TROP, LIPASE, PT, BMP, HEPATIC, CK, CBC, BNP ####[address] [address] [place] CO2 [Moles/Vol] 28.4 mmol/L Normal 21.0-31.0 The [facility] Comment on above: Performed By: #### H S TROP, LIPASE, PT, BMP, HEPATIC, CK, CBC, BNP #### [address] Performed By: #### H S TROP, LIPASE, PT, BMP, HEPATIC, CK, CBC, BNP ####[address] Creatinine [Mass/Vol] 0.62 mg/dL Normal 0.60-1.20 [facility] Comment on above: Performed By: #### H S TROP, LIPASE, PT, BMP, HEPATIC, CK, CBC, BNP #### [address] Performed By: #### H S TROP, LIPASE, PT, BMP, HEPATIC, CK, CBC, BNP ####[address] Creatinine Clr Calc Pharmacy 95.72 Normal [facility] Comment on above: Result Comment: PERF ORMED BY: [place] [address] PATHOLOGIST RESEARCH WORKER [employer] JANA OLMEDO M.D. Performed By: #### H S TROP, LIPASE, PT, BMP, HEPATIC, CK, CBC, BNP #### [address] Performed By: #### H S TROP, LIPASE, PT, BMP, HEPATIC, CK, CBC, BNP ####[address] GFR/1.73 sq M.predicted MDRD (S/P/Bld) [Vol rate/Area] mL/min/{1.73_m2} Normal [facility] Comment on above: Performed By: #### H S TROP, LIPASE, PT, BMP, HEPATIC, CK, CBC, BNP #### [facility] [address] [place] [address] [place] Performed By: #### H S TROP, LIPASE, PT, BMP, HEPATIC, CK, CBC, BNP ####[address] Glucose [Mass/Vol] 94 mg/dL Normal 70-100 [facility] Comment on above: Result Comment: [facility] Glucose Reference Range is dependent on time and content of last meal. Glucose of more than 200 mg/dL in a nonstressed, ambulatory subject supports the diagnosis of Diabetes Mellitus. ADA recommended reference range Performed By: #### H S TROP, LIPASE, PT, BMP, HEPATIC, CK, CBC, BNP #### [address] Performed By: #### H S TROP, LIPASE, PT, BMP, HEPATIC, CK, CBC, BNP ####[address] Potassium [Moles/Vol] 4.1 mmol/L Normal 3.5-5.1 [facility] Comment on above: Performed By: #### H S TROP, LIPASE, PT, BMP, HEPATIC, CK, CBC, BNP #### [address] Performed By: #### H S TROP, LIPASE, PT, BMP, HEPATIC, CK, CBC, BNP ####[address] Sodium [Moles/Vol] 137 mmol/L Normal 136-145 [facility] Comment on above: Performed By: #### H S TROP, LIPASE, PT, BMP, HEPATIC, CK, CBC, BNP #### [address] Performed By: #### H S TROP, LIPASE, PT, BMP, HEPATIC, CK, CBC, BNP ####[address] Urea nitrogen [Mass/Vol] 22 mg/dL Normal 7-25 [facility] Comment on above: Performed By: #### H S TROP, LIPASE, PT, BMP, HEPATIC, CK, CBC, BNP #### [address] [place] [address] [place] Performed By: #### H S TROP, LIPASE, PT, BMP, HEPATIC, CK, CBC, BNP ####[facility] [id number] Basophils Auto (Bld) [#/Vol] Ordered By: Lynnette Chapman on 08-18-2024 Basophils (Bld) [#/Vol] Automated basophil count 0.0-0.2 [facility] Basophils/100 WBC Auto (Bld) Ordered By: Lynnette Chapman on 08-18-2024 Basophils/100 WBC (Bld) Automated basophil % . [facility] Bilirubin.direct [Mass/volum e] in Serum or PlasmaOrdered By: Lynnette Chapman on 08-18-2024 Bilirubin.direct [Mass/Vol] Bilirubin.direct [Mass/volume] in Serum or Plasma 0.03-0.18 [facility] Bilirubin.total [Mass/volume ] in Serum or PlasmaOrdered By: Lynnette Chapman on 08-18-2024 Bilirubin [Mass/Vol] Bilirubin.total [Mass/volume] in Serum or Plasma 0.3-1.0 [facility] Calcium [Mass/volume] in Ser um or PlasmaOrdered By: Lynnette Chapman on 08-18-2024 Calcium [Mass/Vol] Calcium [Mass/volume ] in Serum or Plasma 8.6-10.3 [facility] Carbon dioxide, total [Moles /volume] in Serum or PlasmaOrdered By: Lynnette Chapman on 08-18-2024 CO2 [Moles/Vol] Carbon dioxide, tota l [Moles/volume] in Serum or Plasma 21.0-31.0 [facility] Chloride [Moles/volume] in S nina or PlasmaOrdered By: Lynnette Chapman on 08-18-2024 Chloride [Moles/Vol] Chloride [Moles/vol ume] in Serum or Plasma 98-107 [facility] Complete Blood Count Auto Di ffon 08-18-2024 Basophils (Bld) [#/Vol] 0.0 10*3/uL Normal 0.0-0.2 [facility] Comment on above: Result Comment: PERF ORMED BY: [facility] [address] [place] [address] PATHOLOGIST RESEARCH WORKER [employer] JNAA OLMEDO M.D. Performed By: #### H S TROP, LIPASE, PT, BMP, HEPATIC, CK, CBC, BNP #### [address] Basophils/100 WBC (Bld) 0.7 % Normal . [facility] Comment on above: Performed By: #### H S TROP, LIPASE, PT, BMP, HEPATIC, CK, CBC, BNP #### [address] Eosinophils (Bld) [#/Vol] 0.2 10*3/uL Normal 0.0-0.45 [facility] Comment on above: Performed By: #### H S TROP, LIPASE, PT, BMP, HEPATIC, CK, CBC, BNP #### [address] Eosinophils/100 WBC (Bld) 3.5 % Normal . [facility] Comment on above: Performed By: #### H S TROP, LIPASE, PT, BMP, HEPATIC, CK, CBC, BNP #### [address] Erythrocyte distribution width (RBC) [Ratio] 12.6 % Normal 11.9-15.3 [facility] Comment on above: Performed By: #### H S TROP, LIPASE, PT, BMP, HEPATIC, CK, CBC, BNP #### [address] Hematocrit (Bld) [Volume fraction] 43.7 % Normal 34.0-46.4 [facility] Comment on above: Performed By: #### H S TROP, LIPASE, PT, BMP, HEPATIC, CK, CBC, BNP #### [address] Hemoglobin (Bld) [Mass/Vol] 15.1 g/dL Normal 11.8-15.4 [facility] Comment on above: Performed By: #### H S TROP, LIPASE, PT, BMP, HEPATIC, CK, CBC, BNP #### [address] Lymphocytes (Bld) [#/Vol] 2.2 10*3/uL Normal 1.00-4.8 [facility] Comment on above: Performed By: #### H S TROP, LIPASE, PT, BMP, HEPATIC, CK, CBC, BNP #### [address] Lymphocytes/100 WBC (Bld) 36.5 % Normal . [facility] Comment on above: Performed By: #### H S TROP, LIPASE, PT, BMP, HEPATIC, CK, CBC, BNP #### [address] MCH (RBC) [Entitic mass] 30.7 pg Normal 24.7-34.3 [facility] Comment on above: Performed By: #### H S TROP, LIPASE, PT, BMP, HEPATIC, CK, CBC, BNP #### [address] MCV (RBC) [Entitic vol] 88.8 fL Normal 80-100 [facility] Comment on above: Performed By: #### H S TROP, LIPASE, PT, BMP, HEPATIC, CK, CBC, BNP #### [address] Mean Corpuscular HGB Conc 34.5 g/dL Normal 32.0-35.0 [facility] Comment on above: Performed By: #### H S TROP, LIPASE, PT, BMP, HEPATIC, CK, CBC, BNP #### [address] Monocytes (Bld) [#/Vol] 0.6 10*3/uL Normal 0.0-0.8 [facility] Comment on above: Performed By: #### H S TROP, LIPASE, PT, BMP, HEPATIC, CK, CBC, BNP #### [address] Monocytes/100 WBC (Bld) 16.97 % Normal 0.00-20.00 [facility] Comment on above: Performed By: #### H S TROP, LIPASE, PT, BMP, HEPATIC, CK, CBC, BNP #### [address] Monocytes/100 WBC (Bld) 10.5 % Normal . [facility] Comment on above: Performed By: #### H S TROP, LIPASE, PT, BMP, HEPATIC, CK, CBC, BNP #### [address] Neutrophils (Bld) [#/Vol] 3.0 10*3/uL Normal 1.8-7.7 [facility] Comment on above: Performed By: #### H S TROP, LIPASE, PT, BMP, HEPATIC, CK, CBC, BNP #### [address] Neutrophils/100 WBC (Bld) 48.8 % Normal . [facility] Comment on above: Performed By: #### H S TROP, LIPASE, PT, BMP, HEPATIC, CK, CBC, BNP #### [address] NRBC% 0.1 /100{WBC} Normal 0-0.5 [facility] Comment on above: Performed By: #### H S TROP, LIPASE, PT, BMP, HEPATIC, CK, CBC, BNP #### [address] Platelet mean volume (Bld) [Entitic vol] 7.9 fL Normal 6.3-10.7 [facility] Comment on above: Performed By: #### H S TROP, LIPASE, PT, BMP, HEPATIC, CK, CBC, BNP #### [address] Platelets (Bld) [#/Vol] 204 10*3/uL Normal 150-450 [facility] Comment on above: Performed By: #### H S TROP, LIPASE, PT, BMP, HEPATIC, CK, CBC, BNP #### [address] RBC (Bld) [#/Vol] 4.92 10*6/uL Normal 3.60-5.00 [facility] Comment on above: Performed By: #### H S TROP, LIPASE, PT, BMP, HEPATIC, CK, CBC, BNP #### [facility] [address] WBC (Bld) [#/Vol] 6.1 10*3/uL Normal 3.8-11.6 [facility] Comment on above: Performed By: #### H S TROP, LIPASE, PT, BMP, HEPATIC, CK, CBC, BNP #### [facility] [address] Creatine Kinaseon 08-18-2024 CK [Catalytic activity/Vol] 53 U/L Normal 30-223 [facility] Comment on above: Performed By: #### H S TROP, LIPASE, PT, BMP, HEPATIC, CK, CBC, BNP ####[facility] [address] Creatine kinase [Enzymatic a ctivity/volume] in Serum or PlasmaOrdered By: Lynnette Chapman on 08-18-2024 CK [Catalytic activity/Vol] Creatine kinase [Enzymatic activity/volume] in Serum or Plasma 30-223 [facility] Creatinine [Mass/volume] in Serum or PlasmaOrdered By: Lynnette Chapman on 08-18-2024 Creatinine [Mass/Vol] Creatinine [Mass/v olume] in Serum or Plasma 0.60-1.20 [facility] ECG 12 lead ECGon 08-18-2024 ECG 12 lead ECG [facility] [place] [address] Electrocardiograph Report Signed Patient: Jose Alberto Saleem MR#: [id number] : 1965 Acct:[id number] Age/Sex: 59 / F ADM Date: 08/18/24 Loc: ER Room: Type: [facility] ER Attending Dr: Ordering Provider: Lynnette [...] wave abnormality Confirmed by Lynnette Chapman MD ([id number]) on 08/18/2024 11:22:40 PM Referred By: Electronically Signed By: Lynnette Chapman MD Transcribed By: MUS Signed By Lynnette Chapman MD 08/01 05/24 4388 Normal [facility] Eosinophils Auto (Bld) [#/Vo l]Ordered By: Lynnette Chapman on 08-18-2024 Eosinophils (Bld) [#/Vol] Automated eosinophil count 0.0-0.45 [facility] Eosinophils/100 WBC Auto (Bl d)Ordered By: Lynnette Chapmna on 08-18-2024 Eosinophils/100 WBC (Bld) Automated eosinophil % . [facility] Erythrocyte distribution wid th Auto (RBC) [Ratio]Ordered By: Lynnette Chapman on 08-18-2024 Erythrocyte distribution width (RBC) [Ratio] Erythrocyte distribution width [Ratio] by Automated count 11.9-15.3 [facility] Globulin Calc (S) [Mass/Vol] Ordered By: Lynnette Chapman on 08-18-2024 Globulin (S) [Mass/Vol] Serum globulin measurement by calculation (mass/volume) [facility] Glucose [Mass/volume] in Ser um or PlasmaOrdered By: Lynnette Chapman on 08-18-2024 Glucose [Mass/Vol] Glucose [Mass/volume ] in Serum or Plasma 70-100 [facility] Comment on above: ADA recommended refe rence rangeRandom Glucose Reference Range is dependent on time and content of last meal. Glucose of more than 200 mg/dL in a nonstressed, ambulatory subject supports the diagnosis of Diabetes Mellitus. Hematocrit Auto (Bld) [Volum e fraction]Ordered By: Lynnette Chapman on 08-18-2024 Hematocrit (Bld) [Volume fraction] Hematocrit [Volume Fraction] of Blood by Automated count 34.0-46.4 [facility] Hemoglobin [Mass/volume] in BloodOrdered By: Lynnette Chapman on 08-18-2024 Hemoglobin (Bld) [Mass/Vol] Hemoglobin [Mass/volume] in Blood 11.8-15.4 [facility] Hepatic Panelon 08-18-2024 Albumin [Mass/Vol] 4.3 g/dL Normal 3.5-5.7 [facility] Comment on above: Performed By: #### H S TROP, LIPASE, PT, BMP, HEPATIC, CK, CBC, BNP ####[address] Albumin/Globulin [Mass ratio] 1.7 {ratio} Normal [facility] Comment on above: Performed By: #### H S TROP, LIPASE, PT, BMP, HEPATIC, CK, CBC, BNP ####[address] ALP [Catalytic activity/Vol] 89 U/L Normal 34-104 [facility] Comment on above: Performed By: #### H S TROP, LIPASE, PT, BMP, HEPATIC, CK, CBC, BNP ####[address] ALT [Catalytic activity/Vol] 42 U/L Normal 7-52 [facility] Comment on above: Performed By: #### H S TROP, LIPASE, PT, BMP, HEPATIC, CK, CBC, BNP ####[address] AST [Catalytic activity/Vol] 31 U/L Normal 13-39 [facility] Comment on above: Performed By: #### H S TROP, LIPASE, PT, BMP, HEPATIC, CK, CBC, BNP ####[address] Bilirubin [Mass/Vol] 0.4 mg/dL Normal 0.3-1.0 [facility] Comment on above: Performed By: #### H S TROP, LIPASE, PT, BMP, HEPATIC, CK, CBC, BNP ####[address] Bilirubin,Indirect 0.3 mg/dL Normal [facility] Comment on above: Performed By: #### H S TROP, LIPASE, PT, BMP, HEPATIC, CK, CBC, BNP ####[address] [place] [address] [facility] Bilirubin.indirect [Mass/Vol] 0.10 mg/dL Normal 0.03-0.18 [facility] Comment on above: Performed By: #### H S TROP, LIPASE, PT, BMP, HEPATIC, CK, CBC, BNP ####[place] [id number] [address] Globulin (S) [Mass/Vol] 2.6 g/dL Normal [facility] Comment on above: Performed By: #### H S TROP, LIPASE, PT, BMP, HEPATIC, CK, CBC, BNP ####[place] [id number] [address] Protein [Mass/Vol] 6.9 g/dL Normal 6.4-8.9 [facility] Comment on above: Performed By: #### H S TROP, LIPASE, PT, BMP, HEPATIC, CK, CBC, BNP ####[address] INR in Platelet poor plasma by Coagulation assayOrdered By: Lynnette Chapman on 08-18-2024 INR Coag (PPP) [Relative time] INR in Platelet poor plasma by Coagulation assay [facility] Comment on above: INR Therapeutic Rang e [...] erythrocytes in Blood by Automated coun 3.8-11.6 [facility] Lipaseon 08-18-2024 Lipase [Catalytic activity/Vol] 110.0 U/L High 11.0-82.0 [facility] Comment on above: Result Comment: PERF ORMED BY: [facility] [address] [place] [id number] PATHOLOGIST RESEARCH [employer] JANA OLMEDO M.D. Performed By: #### H S TROP, LIPASE, PT, BMP, HEPATIC, CK, CBC, BNP ####[facility] [id number] [place] [id number] [facility] Lipase [Enzymatic activity/v olume] in Serum or PlasmaOrdered By: Lynnette Chapman on 08-18-2024 Lipase [Catalytic activity/Vol] Lipase [Enzymatic activity/volume] in Serum or Plasma High 11.0-82.0 [facility] Lymphocytes Auto (Bld) [#/Vo l]Ordered By: Lynnette Chapman on 08-18-2024 Lymphocytes (Bld) [#/Vol] Lymphocytes [#/volume] in Blood by Automated count 1.00-4.8 [facility] Lymphocytes/100 WBC Auto (Bl d)Ordered By: Lynnette Chapman on 08-18-2024 Lymphocytes/100 WBC (Bld) Lymphocytes/100 leukocytes in Blood by Automated count . [facility] MCH Auto (RBC) [Entitic mass ]Ordered By: Lynnette Chapman on 08-18-2024 MCH (RBC) [Entitic mass] MCH [Entitic mass] by Automated count 24.7-34.3 [facility] MCHC Auto (RBC) [Mass/Vol]Or dered By: Lynnette Chapman on 08-18-2024 MCHC (RBC) [Mass/Vol] MCHC [Mass/volume] by Automated count 32.0-35.0 [facility] MCV Auto (RBC) [Entitic vol] Ordered By: Lynnette Chapman on 08-18-2024 MCV (RBC) [Entitic vol] MCV [Entitic volume] by Automated count 80-100 [facility] Monocyte distribution width [Entitic volume] in Blood by AutomatedOrdered By: Lynnette Chapman on 08-18-2024 Monocyte distribution width Auto (Bld) [Entitic vol] Monocyte distribution width [Entitic volume] in Blood by Automated 0.00-20.00 [facility] Monocytes Auto (Bld) [#/Vol] Ordered By: Lynnette Chapman on 08-18-2024 Monocytes (Bld) [#/Vol] Automated blood monocyte count 0.0-0.8 [facility] Monocytes/100 WBC Auto (Bld) Ordered By: Lynnette Chapman on 08-18-2024 Monocytes/100 WBC (Bld) Automated monocyte % . [facility] Natriuretic peptide B [Mass/ Vol]Ordered By: Lynnette Chapman on 08-18-2024 Natriuretic peptide B (Bld) [Mass/Vol] BNP ser/plas 5-100 [facility] Neutrophils Auto (Bld) [#/Vo l]Ordered By: Lynnette Chapman on 08-18-2024 Neutrophils (Bld) [#/Vol] Neutrophils [#/volume] in Blood by Automated count 1.8-7.7 [facility] Neutrophils/100 WBC Auto (Bl d)Ordered By: Lynnette Chapman on 08-18-2024 Neutrophils/100 WBC (Bld) Automated neutrophil % . [facility] No Panel InformationOrdered By: Lynnette Chapman on 08-18-2024 Estimated GFR (CKD-EPI) > 60.0 mL/Min [facility] Creatinine Clearance (Chem 95.72 [facility] Nucleated erythrocytes [Pres ence] in Blood by Automated countOrdered By: Lynnette Chapman on 08-18-2024 Nucleated RBC Auto Ql (Bld) Nucleated erythrocytes [Presence] in Blood by Automated count 0-0.5 [facility] Platelet mean volume Auto (B ld) [Entitic vol]Ordered By: Lynnette Chapman on 08-18-2024 Platelet mean volume (Bld) [Entitic vol] Platelet mean volume [Entitic volume] in Blood by Automated count 6.3-10.7 [facility] Platelets Auto (Bld) [#/Vol] Ordered By: Lynnette Chapman on 08-18-2024 Platelets (Bld) [#/Vol] Platelets [#/volume] in Blood by Automated count 150-450 [facility] Potassium [Moles/volume] in Serum or PlasmaOrdered By: Lynnette Chapman on 08-18-2024 Potassium [Moles/Vol] Potassium [Moles/v olume] in Serum or Plasma 3.5-5.1 [facility] Protein [Mass/volume] in Ser um or PlasmaOrdered By: Lynnette Chapman on 08-18-2024 Protein [Mass/Vol] Protein [Mass/volume ] in Serum or Plasma 6.4-8.9 [facility] Prothrombin Time INRon 08-18 INR Coag (PPP) [Relative time] 1.0 {INR} Normal [facility] Comment on above: [...] heart valves: 3 - 4.5 PERFORMED BY: [place] [address] PATHOLOGIST RESEARCH WORK[employer] JANA OLMEDO M.D. Performed By: #### H S TROP, LIPASE, PT, BMP, HEPATIC, CK, CBC, BNP #### [facility] [address] [place] [address] PT Coag (PPP) [Time] 11.7 s Normal 9.0-12.9 [facility] Comment on above: Result Comment: A he matocrit value greater than 55% may lead to inaccurate results in coagulation testing. Patients having hematocrit values >55% require a special collection tube for coagulation studies. Please contact the laboratory at [phone] for redraw instructions. Performed By: #### H S TROP, LIPASE, PT, BMP, HEPATIC, CK, CBC, BNP #### [facility] [address] [place] [address] Prothrombin time (PT)Ordered By: Lynnette Chapman on 08-18-2024 PT Coag (PPP) [Time] Prothrombin time (PT) 9.0- 12.9 [facility] Comment on above: A hematocrit value g reater than 55% may lead to inaccurate results in coagulation testing. Patients having hematocrit values >55% require a special collection tube for coagulation studies. Please contact the laboratory at [phone] for redraw instructions. RBC Auto (Bld) [#/Vol]Ordere d By: Lynnette Chapman on 08-18-2024 RBC (Bld) [#/Vol] Erythrocytes [#/volu me] in Blood by Automated count 3.60-5.00 [facility] Serum or plasma albumin/glob ulin mass ratioOrdered By: Lynnette Chapman on 08-18-2024 Albumin/Globulin [Mass ratio] Serum or plasma albumin/globulin mass ratio [facility] Serum or plasma anion gap de terminationOrdered By: Lynnette Chapman on 08-18-2024 Anion gap [Moles/Vol] Serum or plasma an ion gap determination 6.0-15.0 [facility] Serum or plasma non-glucuron idated bilirubin measurement (mass/volume)Ordered By: Lynnette Chapman on 08-18-2024 Bilirubin.indirect [Mass/Vol] Serum or plasma non-glucuronidated bilirubin measurement (mass/volume) [facility] Sodium [Moles/volume] in Ser um or PlasmaOrdered By: Lynnette Chapman on 08-18-2024 Sodium [Moles/Vol] Sodium [Moles/volume ] in Serum or Plasma 136-145 [facility] Troponin I High Sensitivityo n 08-18-2024 Troponin I High Sensitivity 4.7 pg/mL Normal 0.0-15.0 [facility] Comment on above: Result Comment: PERF ORMED BY: [facility] [address] [place] [address] PATHOLOGIST RESEARCH WORK[employer] JANA OLMEDO M.D. Performed By: #### H S TROP ####[address] [address] [facility] Troponin I High Sensitivity 5.1 pg/mL Normal 0.0-15.0 [facility] Comment on above: Result Comment: PERF ORMED BY: [facility] [address] [place] [address] PATHOLOGIST RESEARCH [employer] JANA OLMEDO M.D. Performed By: #### H S TROP, LIPASE, PT, BMP, HEPATIC, CK, CBC, BNP ####[address] [address] [facility] Troponin I.cardiac [Mass/vol ume] in Serum or Plasma by Detection limit <= 0.01 ng/Ordered By: Lynnette Chapman on 08-18-2024 Troponin I.cardiac DL <= 0.01 ng/mL [Mass/Vol] Troponin I.cardiac [Mass/volume] in Serum or Plasma by Detection limit <= 0.01 ng/ 0.0-15.0 [facility] Urea nitrogen [Mass/volume] in Serum or PlasmaOrdered By: Lynnette Chapman on 08-18-2024 Urea nitrogen [Mass/Vol] Urea nitrogen [Mass/volume] in Serum or Plasma 7-25 [facility] WBC Auto (Bld) [#/Vol]Ordere d By: Lynnette Chapman on 08-18-2024 WBC (Bld) [#/Vol] Leukocytes [#/volume ] in Blood by Automated count 3.8-11.6 [facility] XR chest 2V*on 08-18-2024 XR chest 2V* [facility] [place] [address] XRay Report Signed Patient: Jose Alberto Saleem MR#: [id number] : 1965 Acct:[id number] Age/Sex: 59 / F ADM Date: 08/18/24 Loc: Room: [address] [place] [address] Type: ADM INOo Attending Dr: Donis Arroyo [...] Thelma Wick M.D.08/19/2024 12:10 AM Dictation Location: [place] [address] Transcribed By: [facility] 08/19/24 0010 Dictated By: Thelma Wick MD 08/18/24 0113 Signed By: 08/19/24 0010 Normal [facility] Reminderson 08-05-2024 Reminders Reminders From: Magdalena Longoria To: EU - Administrative; Sent: 08/05/2024 13:08:24 EST Show up: 03/01/2025 13:08:00 EDT Subject: 1 yr reminder Due Date/Time: 08/01/2025 13:08:00 EDT Reminder/Recall Patient needs scheduled with [facility] for a 1 yr f/u with [facility] Normal [facility] Urology Office/Clinic Noteon 08-05-2024 Urology Office/Clinic [...] Myrbetriq from 25mg to 50mg qd Ordered: 08086 Measure Post Void residual urine and/or bladder capacity by US- non-imaging E&M of Est. Patient Moderate 30-39 Min 01447 Urnls Dip Stick Auto w/o Microscopy POC 87988 2. Urethral pain (R39.89: Other symptoms and [...] day(s), # 90 tab(s), Refills(s) 3, Pharmacy: [facility] [id number], 160, cm, 08/05/24 11:29:00 EST, Height/Length Dosing, [...] year Additional Instructions: Patient Education Kidney Stones, Xfin-df-Tmra Problem List/Past Medical History Ongoing Anticoagulated Feeling (more content not included)... Normal [facility] Comment on above: Result Comment: Elec [...] wk f/u. Appointment due by 06/19/2024 in [place] with [facility] PT SCHEDULED JUL 03, 2024 Normal [facility] Urology Office/Clinic Noteon 04-10-2024 Urology Office/Clinic [...] E&M of Est. Patient High 40-54 Min 26657 Urnls Dip Stick Auto w/o Microscopy POC 77794 2. OAB (overactive bladder) (N32.81: Overactive bladder) [...] E&M of Est. Patient High 40-54 Min 53450 3. Urethral pain (R39.89: Other symptoms and [...] E&M of Est. Patient High 40-54 Min 91206 Orders: estradiol topical, See Instructions, 42.5 gm, Refill(s) 6, apply a pea-sized amount vaginally and around the urethra nightly x 3 weeks, then 3x per week thereafter, [facility] #[id number], 160, cm, 04/10/24 15:13:00 EDT, Height/Length Dosing, 74, kg, 04/10/24 15:13... mirabegron, 25 mg = 1 tab(s), Oral, Daily, do not fill both mirabegron AND vibegron. only fill whichever has lower co-pay., X 30 day(s), # 30 tab(s), Refills(s) 11, Pharmacy: [facility] #[id number], 160, cm, 04/10/24 15:13:00 EDT, Height/Length Dosing, 74, k... vibegron, 75 mg = 1 tab(s), Oral, Daily, X 30 day(s), # 30 tab(s), Refills(s) 11, Pharmacy: [facility] #[id number], 160, cm, 04/10/24 15:13:00 EDT, Height/Length Dosing, 74, kg, 04/10/24 15:13:00 EDT, Weight Dosing Total time spent reviewing previous notes/results/external documents, preparing the chart, conducting the encounter with the patient and family, ordering tests/medications, and documenting the encounter was 40 minutes. Follow-up With When Contact Information JENNIFER MARTINO PA-C, URL Within 3 months [address] [place] [address] Additional Instructions: Patient Education Kidney Stones, Cnfx-[id number] Problem List/Past Medical History Ongoing Anticoagulated Feeling of incomplete b (more content not included)... Normal [facility] Comment on above: Result Comment: Elec tronically Signed By: JENNIFER MARTINO PA-C\.br\Date and Time Signed: 04/10/24 16:09 EDT Glucose Glucometer (BldC) [M ass/Vol]on 03-06-2024 Glucose [Mass/Vol] 79 mg/dL Normal 65-99 [facility] Lab Reportson 01-23-2024 Lab Reports [id number]#1.00TIFF Normal [facility] Lab Reports [id number]#1.00TIFF Normal [facility] Lab Reportson 01-22-2024 Lab Reports [id number]#1.00TIFF Normal [facility] Lab Reports [id number]#1.00TIFF Normal [facility] Lab Reports [id number]#1.00TIFF Normal [facility] RAD - MISCon 01-22-2024 RAD - MISC [id number]#1.00TIFF Normal [facility] Surgical Pathology Reporton 06-18-2023 Surgical Pathology Report (NOTE) Path Number: [id number] -- Diagnosis -- ENDOMETRIAL CURETTINGS: -BENIGN ENDOMETRIAL [...] Microscopic Description Microscopic examination performed. Processing Lab: [facility] [address] [place] [id number] Interpretation Performed at [facility] [address] [place], [place] SURGICAL PATHOLOGY CONSULTATION Patient Name: JOSE ALBERTO SALEEM [facility] Rec: [id number] [facility] [employer] [facility] ANATOMIC PATHOLOGY [address] [place] [address]. [place], [place] [address] Normal [facility] NON OB TRANSVAGINALon US NON [...] Gaby Tello DO 06/05/23 Final result Normal [facility] Ceruloplasminon 12-12-2022 Ceruloplasmin 30.6 mg/dL 19.0-39.0 mg/dL [employer] Other Ferritinon 12-12-2022 Ferritin [Mass/Vol] 43.6701679 ng/mL Normal 11.0 -306.8 ng/mL [employer] Other Hepatitis A Antibody Totalon 12-12-2022 Hepatitis A Antibody Total Negative . [employer] Other Hepatitis B Surface Antibody on 12-12-2022 Hepatitis B Surface Antibody Non-Reactive Non Reactive [employer] Other Immunoglobulin Javi Immunoglobulin G 823 mg/dL 586-1602 mg/dL [employer] Other Liver-Kidney Microsomal Abon 12-12-2022 Liver-Kidney Microsomal Ab 1.1 0.0-20.0 [employer] Other Mitochondrial (M2) Antibodyo n 12-12-2022 Mitochondrial (M2) Antibody <20.0 0.0-20.0 [employer] Other Smooth Muscle Antibodyon Smooth Muscle Antibody 5 0-19 No rt [employer] Other MR MRCPon 11-10-2022 MR MRCP [facility] [employer] Other MR MRCP [facility] [employer] Other MR MRCP [address] [facility] [employer] [place] [address] [facility] [employer] Other MR MRCP MRI Report [facility] [employer] Other MR MRCP Signed [employer] Other MR MRCP Patient: Danika Saleem MR#: [id number] [facility] [employer] Other MR MRCP [address] [facility] [employer] Other MR MRCP : 1965 Acct:[id number] [employer] Other MR MRCP Age/Sex: 57 / F ADM Date: 11/10/22 [employer] Other MR MRCP Loc: MR Room: Type: [facility] [employer] Other MR MRCP Attending Dr: Evert salinas MD [employer] Other MR MRCP Copies to: Evert Bruno MD [employer] Other MR MRCP Ordering Provider: Marleny Bruno MD [employer] Other MR MRCP Date of Service: 11/10/22 [employer] Other MR MRCP MR/MR MRCP: Abdominal pain;Common bile duct dilatation;Elevated liver en [employer] Other MR MRCP MRCP [facility] [employer] Other MR MRCP CLINICAL DATA: [place] lipase. Abnormal outside abdominal CT [employer] Other MR MRCP COMPARISON: CT abdom en 10/16/2022 [employer] Other MR MRCP Multiecho imaging of the abdomen was performed along with radial imaging of the biliary tree. [employer] Other MR MRCP The gallbladder surgically absent. There is no significant intrahepatic biliary dilatation. The [employer] Other MR MRCP common duct is sligh tly prominent measuring up to 6 mm. It tapers toward the ampulla. No in [employer] Other MR MRCP traluminal filling defects are identified to suggest choledocholithiasis. The pancreatic duct is [employer] Other MR MRCP also borderline prom inent measuring 2 - 3 mm. No intrahepatic masses are identified. No pancreatic [employer] Other MR MRCP abnormalities are no hayley. The spleen and adrenal glands are within normal limits. There is no [employer] Other MR MRCP hydronephrosis. Ther e are right renal cysts. There is no aortic aneurysm. No adenopathy or [employer] Other MR MRCP ascites is seen. The re is no dilated bowel within the ndugq-ao-xhec. [employer] Other MR MRCP M R/MR MRCP [employer] Other MR MRCP IMPRESSION: [employer] Other MR MRCP SLIGHTLY PROMINENT C OMMON DUCT, WITHOUT CHOLEDOCHOLITHIASIS. THIS MAY RELATE TO PREVIOUS [employer] Other MR MRCP CHOLECYSTECTOMY. [facility] [employer] Other MR MRCP RIGHT RENAL CYSTS. [employer] Other MR MRCP NO OTHER SIGNIFICANT MRI FINDINGS. [employer] Other MR MRCP Impression dictated by: Thelma Wick M.D.11/10/2022 7:00 PM [employer] Other MR MRCP Dictation Location: [place] [address] [employer] Other MR MRCP Transcribed By: PWS 11/10/221899 [employer] Other MR MRCP Dictated By: Thelma Wick MD 11/10/221849 [employer] Other MR MRCP Signed By: [employer] Other MR MRCP 11/10/221899 [employer] Other Albumin [Mass/volume] in Ser um or PlasmaOrdered By: Evert Bruno on 11-01-2022 Albumin [Mass/Vol] 4.0 g/dL 3.2-5.5 [facility] Direct bilirubin measurement Ordered By: Imsara Bruno on 11-01-2022 Bilirubin.direct [Mass/Vol] 0.1 mg/dL 0.0-0.4 [facility] Globulin Calc (S) [Mass/Vol] Ordered By: Imsara Bruno on 11-01-2022 Globulin (S) [Mass/Vol] 2.5 g/dL [facility] Hepatic Panelon 11-01-2022 Albumin [Mass/Vol] 4.055075 g/dL Normal 3.2-5.5 g/dL [employer] Other ALT [Catalytic activity/Vol] 94 U/L High 10-60 U/L [employer] Other Bilirubin [Mass/Vol] 0.9074937 mg/dL Normal 0.3- 1.2 mg/dL [employer] Other Bilirubin.indirect [Mass/Vol] 0.8372326 mg/dL Normal 0.0-0.4 mg/dL [employer] Other Protein [Mass/Vol] 6.199701 g/dL Normal 6.1-7.9 g/dL [employer] Other Hepatic Panel 0.5 mg/dL [employer] Other Hepatic Panel 2.5 g/dL [employer] Other Protein [Mass/volume] in Ser um or PlasmaOrdered By: Evert Bruno on 11-01-2022 Protein [Mass/Vol] 6.5 g/dL 6.1-7.9 [facility] Serum or plasma alanine li otransferase measurement without P-5'-P (enzymatic activiOrdered By: Evert Bruno on 11-01-2022 ALT No additional P-5'-P [Catalytic activity/Vol] 94 U/L 10-60 [facility] Serum or plasma albumin/glob ulin mass ratioOrdered By: Evert Bruno on 11-01-2022 Albumin/Globulin [Mass ratio] 1.6 {ratio} [facility] Serum or plasma alkaline monster sphatase measurement (enzymatic activity/volume)Ordered By: Evert Bruno on 11-01-2022 ALP [Catalytic activity/Vol] 93 U/L 32-92 [facility] Serum or plasma aspartate am inotransferase measurement (enzymatic activity/volume)Ordered By: Evert Bruno on 11-01-2022 AST [Catalytic activity/Vol] 66 U/L 10-42 [facility] Serum or plasma non-glucuron idated bilirubin measurement (mass/volume)Ordered By: Evert Bruno on 11-01-2022 Bilirubin.indirect [Mass/Vol] 0.5 mg/dL [facility] Serum or plasma total biliru bin measurement (mass/volume)Ordered By: Evert Bruno on 11-01-2022 Bilirubin [Mass/Vol] 0.6 mg/dL 0.3-1.[address] [facility] [address] ABDOMEN WO/W CONon 2022 CT [...] JAE WILSON Date: 2022-10-17 08:[address] [facility] AMMONIAon 10-09-2022 Ammonia (P) [Moles/Vol] 10 umol/L Critically low 11-[address] [facility] Comment on above: Performed By: #### A MY #### [facility] [facility] [address] [place] [address] Dr. yAden Cam AMYLASEon 10-09-2022 Amylase [Catalytic activity/Vol] 144 U/L Critically high 25-115 [facility] Comment on above: Performed By: #### L IPA #### [facility] [address] [place] [address] Dr. Ayden Cam CBC AUTO DIFFon 10-09-2022 BASO # 0.0 103/ul Normal 0.0-0.1 [facility] Comment on above: Performed By: #### C BC #### [facility] [address] [place] [address] Dr. Ayden Cam Basophils/100 WBC (Bld) 0.2 % Normal 0.2-2.0 [facility] Comment on above: Performed By: #### C BC #### [facility] [address] [place] [address] Dr. Ayden Cam EO # 0.2 103/ul Normal 0.0-0.7 [facility] Comment on above: Performed By: #### C BC #### [facility] [address] [place] [address] Dr. Ayden Cam Eosinophils/100 WBC (Bld) 3.3 % Normal 0.9-7.0 [facility] Comment on above: Performed By: #### C BC #### [facility] [address] [place] [address] Dr. Ayden Cam Erythrocyte distribution width (RBC) [Ratio] 12.1 % Normal 11.0-15.0 [facility] Comment on above: Performed By: #### C BC #### [facility] [address] [place] [address] Dr. Ayden Cam Hematocrit (Bld) [Volume fraction] 40.0 % Normal 36.0-48.0 [facility] Comment on above: Performed By: #### C BC #### [facility] [address] [place] [address] Dr. Ayden Cam Hemoglobin (Bld) [Mass/Vol] 14.2 g/dL Normal 12.0-16.0 [facility] Comment on above: Performed By: #### C BC #### [facility] [address] [place] [address] Dr. Ayden Cam IG # 0.01 10e3/ul Normal 0.00-0.03 [facility] Comment on above: Performed By: #### C BC #### [facility] [address] [place] [address] Dr. Ayden Cam IG % 0.2 % Normal 0.0-0.[address] [facility] Comment on above: Performed By: #### C BC #### [facility] [address] [place] [address] Dr. Ayden Cam LYMPH # 1.5 103/ul Normal 1.2-3.[address] [facility] Comment on above: Performed By: #### C BC #### [facility] [address] [place] [address] Dr. Ayden Cam Lymphocytes/100 WBC (Bld) 24.2 % Normal 20.5-60.0 [facility] Comment on above: Performed By: #### C BC #### [facility] [address] [place] [address] Dr. Ayden Cam MANUAL DIFF REQ NO Normal [facility] Comment on above: Performed By: #### C BC #### [facility] [address] [place] [address] Dr. Ayden Cam MCH (RBC) [Entitic mass] 30.0 pg Normal 26.7-34.[address] [facility] Comment on above: Performed By: #### C BC #### [facility] [address] [place] [address] Dr. Adyen Cam MCHC (RBC) [Mass/Vol] 35.5 g/dL Critically high 29.9-35.[address] [facility] Comment on above: Performed By: #### C BC #### [facility] [address] [place] [address] Dr. Ayden Cam MCV (RBC) [Entitic vol] 84.4 fL Normal 81.0-99.0 [facility] Comment on above: Performed By: #### C BC #### [facility] [address] [place] [address] Dr. Ayden Cam MONO # 0.6 103/ul Normal 0.3-0.[address] [facility] Comment on above: Performed By: #### C BC #### [facility] [address] [place] [address] Dr. Ayden Cam Monocytes/100 WBC (Bld) 10.3 % Normal 1.7-12.[address] [facility] Comment on above: Performed By: #### C BC #### [facility] [address] [place] [address] Dr. Ayden Cam NEUT # 3.7 103/ul Normal 1.4-6.[address] [facility] Comment on above: Performed By: #### C BC #### [facility] [address] [address] [address] Ayden Cam Neutrophils/100 WBC (Bld) 61.8 % Normal 43.0-75.0 [facility] Comment on above: Performed By: #### C BC #### [facility] [address] [place] [address] Dr. Ayden Cam Platelet mean volume (Bld) [Entitic vol] 9.0 fL Critically low 9.5-13.5 [facility] Comment on above: Performed By: #### C BC #### [facility] [address] [address] [address] Ayden Cam PLT 191 103/ul Normal 150-[address] [facility] Comment on above: Performed By: #### C BC #### [facility] [address] [place] [address] Dr. Ayden Cam RBC 4.74 106/ul Normal 4.20-5.40 [facility] Comment on above: Performed By: #### C BC #### [facility] [address] [place] [address] Dr. Ayden Cam WBC 6.0 103/ul Normal 4.0-11.0 [facility] Comment on above: Performed By: #### C BC #### [facility] [address] [place] [address] Dr. Ayden Cam LIPASEon 10-09-2022 Lipase [Catalytic activity/Vol] 168.0 U/L Normal 73.0-393.0 [facility] Comment on above: Performed By: #### L ACT #### [facility] [address] [place] [address] Dr. Ayden Cam PROF 14(COMP METB)on 023 Albumin [Mass/Vol] 3.6 g/dL Normal 3.4-5.0 [facility] [place] Comment on above: Performed By: #### L IPA #### [facility] [address] [place] [address] Dr. Ayden Cam Albumin/Globulin [Mass ratio] 1.1 {ratio} Normal [facility] Comment on above: Performed By: #### L IPA #### [facility] [address] [place] [address] Dr. Ayden Cam ALP [Catalytic activity/Vol] 93 U/L Normal 46-116 [facility] Comment on above: Performed By: #### L IPA #### [facility] [address] [address] [address] Ayden Cam ALT [Catalytic activity/Vol] 52 U/L Normal 14-59 [facility] Comment on above: Performed By: #### L IPA #### [facility] [address] [place] [address] Dr. Ayden Cam Anion gap [Moles/Vol] 10.2 mmol/L Normal [facility] Comment on above: Performed By: #### L IPA #### [facility] [address] [place] [address] Dr. Ayden Cam AST [Catalytic activity/Vol] 33 U/L Normal 15-37 [facility] Comment on above: Performed By: #### L IPA #### [facility] [address] [place] [address] Dr. Ayden Cam Bilirubin [Mass/Vol] 0.3 mg/dL Normal 0.2-1.0 [facility] Comment on above: Performed By: #### L IPA #### [facility] [address] [place] [address] Dr. Ayden Cam Calcium [Mass/Vol] 9.4 mg/dL Normal 8.5-10.1 [facility] [place] Comment on above: Performed By: #### L IPA #### [facility] [address] [place] [address] Dr. Ayden Cam Chloride [Moles/Vol] 99 mmol/L Normal 98-107 [facility] Comment on above: Performed By: #### L IPA #### [facility] [address] [place] [address] Dr. Ayden Cam CO2 [Moles/Vol] 33.7 mmol/L Critically high 21.0-32.0 [facility] Comment on above: Performed By: #### L IPA #### [facility] [address] [place] [address] Dr. Ayden Cam Creatinine [Mass/Vol] 0.62 mg/dL Normal 0.55-1.[address] [facility] Comment on above: Performed By: #### L IPA #### [facility] [address] [place] [address] Dr. Ayden Cam EGFR-AF FIJIAN >60 Normal >=60 [facility] Comment on above: Performed By: #### L IPA #### [facility] [address] [address] [address] Ayden Cam EGFR-NON AF FIJIAN >60 Normal >=60 [facility] Comment on above: Performed By: #### L IPA #### [facility] [address] [place] [address] Dr. Ayden Cam Globulin (S) [Mass/Vol] 3.4 g/dL Normal [facility] Comment on above: Performed By: #### L IPA #### [facility] [address] [place] [address] Dr. Ayden Cam Glucose [Mass/Vol] 105 mg/dL Normal 74-106 [facility] Comment on above: Performed By: #### L IPA #### [facility] [address] [place] [address] Dr. Ayden Cam Potassium [Moles/Vol] 3.9 mmol/L Normal 3.5-5.[address] [facility] Comment on above: Performed By: #### L IPA #### [facility] [address] [place] [address] Dr. Ayden Cam Protein [Mass/Vol] 7.0 g/dL Normal 6.4-8.2 [facility] Comment on above: Performed By: #### L IPA #### [facility] [address] [address] [address] Ayden Cam Sodium [Moles/Vol] 139 mmol/L Normal 136-145 [facility] Comment on above: Performed By: #### L IPA #### [facility] [address] [place] [address] Dr. Ayden Cam Urea nitrogen [Mass/Vol] 28.0 mg/dL Critically high 7.0-18.0 [facility] Comment on above: Performed By: #### L IPA #### [facility] [address] [place] [address] Dr. Ayden Cam Urea nitrogen/Creatinine [Mass ratio] 45.2 mg/mg Normal [facility] Comment on above: Performed By: #### L IPA #### [facility] [address] [place] [address] Dr. Ayden Cam AMMONIAon 10-06-2022 Ammonia (P) [Moles/Vol] 16 umol/L Normal 11-32 [facility] Comment on above: Performed By: #### A MM #### [facility] [address] [place] [address] Dr. Ayden Cam AMYLASEon 10-06-2022 Amylase [Catalytic activity/Vol] 189 U/L Critically high 25-115 [facility] Comment on above: Performed By: #### L IPA #### [facility] [address] [place] [address] Dr. Ayden Cam CBC AUTO DIFFon 10-06-2022 BASO # 0.0 103/ul Normal 0.0-0.1 [facility] Comment on above: Performed By: #### C BC #### [facility] [address] [place] [address] Dr. Ayden Cam Basophils/100 WBC (Bld) 0.2 % Normal 0.2-2.0 [facility] Comment on above: Performed By: #### C BC #### [facility] [address] [place] [address] Dr. Ayden Cam EO # 0.3 103/ul Normal 0.0-0.[address] [facility] Comment on above: Performed By: #### C BC #### [facility] [address] [place] [address] Dr. Ayden Cam Eosinophils/100 WBC (Bld) 5.2 % Normal 0.9-7.0 [facility] Comment on above: Performed By: #### C BC #### [facility] [address] [place] [address] Dr. Ayden Cam Erythrocyte distribution width (RBC) [Ratio] 12.3 % Normal 11.0-15.0 [facility] Comment on above: Performed By: #### C BC #### [facility] [address] [place] [address] Dr. Ayden Cam Hematocrit (Bld) [Volume fraction] 36.9 % Normal 36.0-48.0 [facility] Comment on above: Performed By: #### C BC #### [facility] [address] [place] [address] Dr. Ayden Cam Hemoglobin (Bld) [Mass/Vol] 12.4 g/dL Normal 12.0-16.0 [facility] Comment on above: Performed By: #### C BC #### [facility] [address] [place] [address] Dr. Ayden Cam IG # 0.01 10e3/ul Normal 0.00-0.03 [facility] Comment on above: Performed By: #### C BC #### [facility] [address] [place] [address] Dr. Ayden Cam IG % 0.2 % Normal 0.0-0.5 [facility] Comment on above: Performed By: #### C BC #### [facility] [address] [place] [address] Dr. Ayden Cam LYMPH # 1.8 103/ul Normal 1.2-3.8 [facility] Comment on above: Performed By: #### C BC #### [facility] [address] [place] [address] Dr. Ayden Cam Lymphocytes/100 WBC (Bld) 31.3 % Normal 20.5-60.0 [facility] Comment on above: Performed By: #### C BC #### [facility] [address] [place] [address] Dr. Ayden Cam MANUAL DIFF REQ NO Normal [facility] Comment on above: Performed By: #### C BC #### [facility] [address] [place] [address] Dr. Ayden Cam MCH (RBC) [Entitic mass] 30.0 pg Normal 26.7-34.0 [facility] Comment on above: Performed By: #### C BC #### [facility] [address] [address] [address] Ayden Cam MCHC (RBC) [Mass/Vol] 33.6 g/dL Normal 29.9-35.2 [facility] Comment on above: Performed By: #### C BC #### [facility] [address] [address] [address] Ayden Cam MCV (RBC) [Entitic vol] 89.1 fL Normal 81.0-99.0 [facility] Comment on above: Performed By: #### C BC #### [facility] [address] [place] [address] Dr. Ayden Cam MONO # 0.6 103/ul Normal 0.3-0.8 [facility] Comment on above: Performed By: #### C BC #### [facility] [address] [place] [address] Dr. Ayden Cam Monocytes/100 WBC (Bld) 10.1 % Normal 1.7-12.0 [facility] Comment on above: Performed By: #### C BC #### [facility] [address] [place] [address] Dr. Ayden Cam NEUT # 3.1 103/ul Normal 1.4-6.5 [facility] Comment on above: Performed By: #### C BC #### [facility] [address] [place] [address] Dr. Ayden Cam Neutrophils/100 WBC (Bld) 53.0 % Normal 43.0-75.0 [facility] Comment on above: Performed By: #### C BC #### [facility] [address] [place] [address] Dr. Ayden Cam Platelet mean volume (Bld) [Entitic vol] 9.4 fL Critically low 9.5-13.5 [facility] Comment on above: Performed By: #### C BC #### [facility] [address] [place] [address] Dr. Ayden Cam PLT 153 103/ul Normal 150-[address] [facility] Comment on above: Performed By: #### C BC #### [facility] [address] [address] [address] Ayden Cam RBC 4.14 106/ul Critically low 4.20-5.40 [facility] Comment on above: Performed By: #### C BC #### [facility] [address] [place] [address] Dr. Ayden Cam WBC 5.8 103/ul Normal 4.0-11.0 [facility] Comment on above: Performed By: #### C BC #### [facility] [address] [place] [address] Dr. Ayden Cam LIPASEon 10-06-2022 Lipase [Catalytic activity/Vol] 166.0 U/L Normal 73.0-393.0 [facility] Comment on above: Performed By: #### L IPA #### [facility] [address] [place] [address] Dr. Ayden Cam LIVER PROFILEon 10-06-2022 Albumin [Mass/Vol] 3.2 g/dL Critically low 3.4-5.0 [facility] Comment on above: Performed By: #### L IPA #### [facility] [address] [place] [address] Dr. Ayden Cam Albumin/Globulin [Mass ratio] 1.3 {ratio} Normal [facility] Comment on above: Performed By: #### L IPA #### [facility] [address] [place] [address] Dr. Ayden Cam ALP [Catalytic activity/Vol] 88 U/L Normal 46-[address] [facility] Comment on above: Performed By: #### L IPA #### [facility] [address] [place] [address] Dr. Ayden Cam ALT [Catalytic activity/Vol] 66 U/L Critically high 14-59 [facility] Comment on above: Performed By: #### L IPA #### [facility] [address] [place] [address] Dr. Ayden Cam AST [Catalytic activity/Vol] 39 U/L Critically high 15-37 [facility] Comment on above: Performed By: #### L IPA #### [facility] [address] [address] [address] Ayden Cam BILI, CONJUGATED 0.1 mg/dL Normal 0.0-0.2 [facility] Comment on above: Performed By: #### L IPA #### [facility] [address] [address] [address] Ayden Cam Bilirubin [Mass/Vol] 0.4 mg/dL Normal 0.2-1.0 [facility] Comment on above: Performed By: #### L IPA #### [facility] [address] [address] [address] Ayden Cam Globulin (S) [Mass/Vol] 2.4 g/dL Normal [facility] Comment on above: Performed By: #### L IPA #### [facility] [address] [place] [address] Dr. Ayden Cam Protein [Mass/Vol] 5.6 g/dL Critically low 6.4-8.2 [facility] Comment on above: Performed By: #### L IPA #### [facility] [address] [address] [address] Ayden Cam PROF CHEM 8 (BAS METB)on Anion gap [Moles/Vol] 6.8 mmol/L Normal [facility] Comment on above: Performed By: #### L IPA #### [facility] [address] [address] [address] Ayden Cam Calcium [Mass/Vol] 8.6 mg/dL Normal 8.5-10.1 [facility] [place] Comment on above: Performed By: #### L IPA #### [facility] [address] [address] [address] Ayden Cam Chloride [Moles/Vol] 102 mmol/L Normal 98-107 [facility] Comment on above: Performed By: #### L IPA #### [facility] [address] [address] [address] Ayden Cam CO2 [Moles/Vol] 32.6 mmol/L Critically high 21.0-32.0 [facility] Comment on above: Performed By: #### L IPA #### [facility] [address] [address] [address] Ayden Cam Creatinine [Mass/Vol] 0.61 mg/dL Normal 0.55-1.02 [facility] Comment on above: Performed By: #### L IPA #### [facility] [address] [address] [address] Ayden Cam EGFR-AF FIJIAN >60 Normal >=60 [facility] Comment on above: Performed By: #### L IPA #### [facility] [address] [address] [address] Ayden Cam EGFR-NON AF FIJIAN >60 Normal >=60 [facility] Comment on above: Performed By: #### L IPA #### [facility] [address] [address] [address] Ayden Cam Glucose [Mass/Vol] 91 mg/dL Normal 74-106 [facility] Comment on above: Performed By: #### L IPA #### [facility] [address] [address] [address] Ayden Cam Potassium [Moles/Vol] 3.4 mmol/L Critically low 3.5-5.1 [facility] Comment on above: Performed By: #### L IPA #### [facility] [address] [place] [address] Dr. Ayden Cam Sodium [Moles/Vol] 138 mmol/L Normal 136-145 [facility] Comment on above: Performed By: #### L IPA #### [facility] [address] [address] [address] Ayden Cam Urea nitrogen [Mass/Vol] 13.0 mg/dL Normal 7.0-18.0 [facility] Comment on above: Performed By: #### L IPA #### [facility] [address] [address] [address] Ayden Cam Urea nitrogen/Creatinine [Mass ratio] 21.3 mg/mg Normal [facility] Comment on above: Performed By: #### L IPA #### [facility] [address] [place] [address] Dr. Ayden Cam AMMONIAon 10-05-2022 Ammonia (P) [Moles/Vol] 10 umol/L Critically low 11-[address] [facility] Comment on above: Performed By: #### A MM #### [facility] [address] [place] [address] Dr. Ayden Cam AMYLASEon 10-05-2022 Amylase [Catalytic activity/Vol] 109 U/L Normal 25-[address] [facility] Comment on above: Performed By: #### A MY #### [facility] [address] [place] [address] Dr. Ayden Cam CBC AUTO DIFFon 10-05-2022 BASO # 0.0 103/ul Normal 0.0-0.1 [facility] Comment on above: Performed By: #### L IPA #### [facility] [address] [place] [address] Dr. Ayden Cam Basophils/100 WBC (Bld) 0.3 % Normal 0.2-2.0 [facility] Comment on above: Performed By: #### L IPA #### [facility] [address] [place] [address] Dr. Ayden Cam EO # 0.3 103/ul Normal 0.0-0.7 [facility] Comment on above: Performed By: #### L IPA #### [facility] [address] [place] [address] Dr. Ayden Cam Eosinophils/100 WBC (Bld) 4.3 % Normal 0.9-7.[address] [facility] Comment on above: Performed By: #### L IPA #### [facility] [address] [place] [address] Dr. Ayden Cam Erythrocyte distribution width (RBC) [Ratio] 12.2 % Normal 11.0-15.[address] [facility] Comment on above: Performed By: #### L IPA #### [facility] [address] [place] [address] Dr. Ayden Cam Hematocrit (Bld) [Volume fraction] 38.9 % Normal 36.0-48.[address] [facility] Comment on above: Performed By: #### L IPA #### [facility] [address] [address] [address] Ayden Cam Hemoglobin (Bld) [Mass/Vol] 12.8 g/dL Normal 12.0-16.0 [facility] Comment on above: Performed By: #### L IPA #### [facility] [address] [address] [address] Ayden Cam IG # 0.01 10e3/ul Normal 0.00-0.03 [facility] Comment on above: Performed By: #### L IPA #### [facility] [address] [place] [address] Dr. Ayden Cam IG % 0.2 % Normal 0.0-0.5 [facility] Comment on above: Performed By: #### L IPA #### [facility] [address] [place] [address] Dr. Ayden Cam LYMPH # 1.9 103/ul Normal 1.2-3.[address] [facility] Comment on above: Performed By: #### L IPA #### [facility] [address] [place] [address] Dr. Ayden Cam Lymphocytes/100 WBC (Bld) 31.4 % Normal 20.5-60.0 [facility] Comment on above: Performed By: #### L IPA #### [facility] [address] [place] [address] Dr. Ayden Cam MANUAL DIFF REQ NO Normal [facility] Comment on above: Performed By: #### L IPA #### [facility] [address] [place] [address] Dr. Ayden Cam MCH (RBC) [Entitic mass] 29.6 pg Normal 26.7-34.[address] [facility] Comment on above: Performed By: #### L IPA #### [facility] [address] [place] [address] Dr. Ayden Cam MCHC (RBC) [Mass/Vol] 32.9 g/dL Normal 29.9-35.[address] [facility] Comment on above: Performed By: #### L IPA #### [facility] [address] [address] [address] Ayden Cam MCV (RBC) [Entitic vol] 89.8 fL Normal 81.0-99.0 [facility] Comment on above: Performed By: #### L IPA #### [facility] [address] [address] [address] Ayden Cam MONO # 0.6 103/ul Normal 0.3-0.8 [facility] Comment on above: Performed By: #### L IPA #### [facility] [address] [address] [address] Ayden Cam Monocytes/100 WBC (Bld) 10.1 % Normal 1.7-12.0 [facility] Comment on above: Performed By: #### L IPA #### [facility] [address] [place] [address] Dr. Ayden Cam NEUT # 3.2 103/ul Normal 1.4-6.5 [facility] Comment on above: Performed By: #### L IPA #### [facility] [address] [place] [address] Dr. Ayden Cam Neutrophils/100 WBC (Bld) 53.7 % Normal 43.0-75.0 [facility] Comment on above: Performed By: #### L IPA #### [facility] [address] [place] [address] Dr. Ayden Cam Platelet mean volume (Bld) [Entitic vol] 9.7 fL Normal 9.5-13.5 [facility] Comment on above: Performed By: #### L IPA #### [facility] [address] [place] [address] Dr. Ayden Cam PLT 168 103/ul Normal 150-[address] [facility] Comment on above: Performed By: #### L IPA #### [facility] [address] [place] [address] Dr. Ayden Cam RBC 4.33 106/ul Normal 4.20-5.[address] [facility] Comment on above: Performed By: #### L IPA #### [facility] [address] [place] [address] Dr. Ayden Cam WBC 6.0 103/ul Normal 4.0-11.0 [facility] Comment on above: Performed By: #### L IPA #### [facility] [address] [place] [address] Dr. Ayden Cam LIPASEon 10-05-2022 Lipase [Catalytic activity/Vol] 151.0 U/L Normal 73.0-393.0 [facility] Comment on above: Performed By: #### L IPA #### [facility] [address] [place] [address] Dr. Ayden Cam LIVER PROFILEon 10-05-2022 Albumin [Mass/Vol] 3.2 g/dL Critically low 3.4-5.0 [facility] Comment on above: Performed By: #### L ACT #### [facility] [address] [place] [address] Dr. Ayden Cam Albumin/Globulin [Mass ratio] 1.1 {ratio} Normal [facility] Comment on above: Performed By: #### L ACT #### [facility] [address] [place] [address] Dr. Ayden Cam ALP [Catalytic activity/Vol] 82 U/L Normal 46-116 [facility] Comment on above: Performed By: #### L ACT #### [facility] [address] [place] [address] Dr. Ayden Cma ALT [Catalytic activity/Vol] 70 U/L Critically high 14-59 [facility] Comment on above: Performed By: #### L ACT #### [facility] [address] [place] [address] Dr. Ayden Cam AST [Catalytic activity/Vol] 36 U/L Normal 15-37 [facility] Comment on above: Performed By: #### L ACT #### [facility] [address] [place] [address] Dr. Ayden Cam BILI, CONJUGATED 0.1 mg/dL Normal 0.0-0.2 [facility] Comment on above: Performed By: #### L ACT #### [facility] [address] [place] [address] Dr. Ayden Cam Bilirubin [Mass/Vol] 0.3 mg/dL Normal 0.2-1.0 [facility] Comment on above: Performed By: #### L ACT #### [facility] [address] [address] [address] Ayden Cam Globulin (S) [Mass/Vol] 3.0 g/dL Normal [facility] Comment on above: Performed By: #### L ACT #### [facility] [address] [address] [address] Ayden Cam Protein [Mass/Vol] 6.2 g/dL Critically low 6.4-8.2 [facility] Comment on above: Performed By: #### L ACT #### [facility] [address] [place] [address] Dr. Ayden Cam PROF CHEM 8 (BAS METB)on Anion gap [Moles/Vol] 9.5 mmol/L Normal [facility] Comment on above: Performed By: #### B MP #### [facility] [address] [place] [address] Dr. Ayden Cam Calcium [Mass/Vol] 8.9 mg/dL Normal 8.5-10.1 [facility] Comment on above: Performed By: #### B MP #### [facility] [address] [place] [address] Dr. yAden Cam Chloride [Moles/Vol] 105 mmol/L Normal 98-107 [facility] Comment on above: Performed By: #### B MP #### [facility] [address] [place] [address] Dr. Ayden Cam CO2 [Moles/Vol] 29.6 mmol/L Normal 21.0-32.0 [facility] Comment on above: Performed By: #### B MP #### [facility] [address] [place] [address] Dr. Ayden Cam Creatinine [Mass/Vol] 0.56 mg/dL Normal 0.55-1.02 [facility] Comment on above: Performed By: #### B MP #### [facility] [address] [address] [address] Ayden Cam EGFR-AF FIJIAN >60 Normal >=60 [facility] Comment on above: Performed By: #### B MP #### [facility] [address] [address] [address] Ayden Cam EGFR-NON AF FIJIAN >60 Normal >=60 [facility] Comment on above: Performed By: #### B MP #### [facility] [address] [address] [address] Ayden Cam Glucose [Mass/Vol] 88 mg/dL Normal 74-106 [facility] Comment on above: Performed By: #### B MP #### [facility] [address] [place] [address] Dr. Ayden Cam Potassium [Moles/Vol] 4.1 mmol/L Normal 3.5-5.1 [facility] Comment on above: Performed By: #### B MP #### [facility] [address] [place] [address] Dr. Ayden Cam Sodium [Moles/Vol] 140 mmol/L Normal 136-145 [facility] Comment on above: Performed By: #### B MP #### [facility] [address] [place] [address] Dr. Ayden Cam Urea nitrogen [Mass/Vol] 15.0 mg/dL Normal 7.0-18.0 [facility] Comment on above: Performed By: #### B MP #### [facility] [address] [place] [address] Dr. Ayden Cam Urea nitrogen/Creatinine [Mass ratio] 26.8 mg/mg Normal [facility] Comment on above: Performed By: #### B MP #### [facility] [address] [place], [place] [id number] Dr. Ayden Cam US Jhony 10-05-2022 US [...] RONAN TORIBIO Date: 2022-10-05 09:[address] [facility] XR KUB 1 VIEWon 10-05-2022 XR [...] RONAN TORIBIO Date: 2022-10-05 09:[address] [facility] AMYLASEon 10-04-2022 Amylase [Catalytic activity/Vol] 124 U/L Critically high 25-[address] [facility] Comment on above: Performed By: #### L IPA, COLE, CMP #### [facility] [address] [address] [address] Ayden Cam CBC AUTO DIFFon 10-04-2022 BASO # 0.0 103/ul Normal 0.0-0.[address] [facility] Comment on above: Performed By: #### L IPA #### [facility] [address] [address] [address] Ayden Cam Basophils/100 WBC (Bld) 0.3 % Normal 0.2-2.[address] [facility] Comment on above: Performed By: #### L IPA #### [facility] [address] [place] [address] Dr. Ayden Cam EO # 0.2 103/ul Normal 0.0-0.[address] [facility] Comment on above: Performed By: #### L IPA #### [facility] [address] [place] [address] Dr. Ayden Cam Eosinophils/100 WBC (Bld) 2.9 % Normal 0.9-7.[address] [facility] Comment on above: Performed By: #### L IPA #### [facility] [address] [place] [address] Dr. Ayden Cam Erythrocyte distribution width (RBC) [Ratio] 12.3 % Normal 11.0-15.0 [facility] Comment on above: Performed By: #### L IPA #### [facility] [address] [place] [address] Dr. Ayden Cam Hematocrit (Bld) [Volume fraction] 42.0 % Normal 36.0-48.0 [facility] Comment on above: Performed By: #### L IPA #### [facility] [address] [place] [address] Dr. Ayden Cam Hemoglobin (Bld) [Mass/Vol] 14.3 g/dL Normal 12.0-16.0 [facility] Comment on above: Performed By: #### L IPA #### [facility] [address] [place] [address] Dr. Ayden Cam IG # 0.02 10e3/ul Normal 0.00-0.[address] [facility] Comment on above: Performed By: #### L IPA #### [facility] [address] [place] [address] Dr. Ayedn Cam IG % 0.3 % Normal 0.0-0.[address] [facility] Comment on above: Performed By: #### L IPA #### [facility] [address] [place] [address] Dr. Ayden Cam LYMPH # 1.7 103/ul Normal 1.2-3.[address] [facility] Comment on above: Performed By: #### L IPA #### [facility] [address] [place] [address] Dr. Ayden Cam Lymphocytes/100 WBC (Bld) 22.5 % Normal 20.5-60.[address] [facility] Comment on above: Performed By: #### L IPA #### [facility] [address] [place] [address] Dr. Ayden Cam MANUAL DIFF REQ NO Normal [facility] Comment on above: Performed By: #### L IPA #### [facility] [address] [place] [address] Dr. Ayden Cam MCH (RBC) [Entitic mass] 30.1 pg Normal 26.7-34.[address] [facility] Comment on above: Performed By: #### L IPA #### [facility] [address] [place] [address] Dr. Ayden Cam MCHC (RBC) [Mass/Vol] 34.0 g/dL Normal 29.9-35.[address] [facility] Comment on above: Performed By: #### L IPA #### [facility] [address] [place] [address] Dr. Ayden Cam MCV (RBC) [Entitic vol] 88.4 fL Normal 81.0-99.[address] [facility] Comment on above: Performed By: #### L IPA #### [facility] [address] [place] [address] Dr. Ayden Cam MONO # 0.5 103/ul Normal 0.3-0.[address] [facility] Comment on above: Performed By: #### L IPA #### [facility] [address] [place] [address] Dr. Ayden Cam Monocytes/100 WBC (Bld) 6.0 % Normal 1.7-12.[address] [facility] Comment on above: Performed By: #### L IPA #### [facility] [address] [place] [address] Dr. Ayden Cam NEUT # 5.2 103/ul Normal 1.4-6.[address] [facility] Comment on above: Performed By: #### L IPA #### [facility] [address] [place] [address] Dr. Ayden Cam Neutrophils/100 WBC (Bld) 68.0 % Normal 43.0-75.[address] [facility] Comment on above: Performed By: #### L IPA #### [facility] [address] [place] [address] Dr. Ayden Cam Platelet mean volume (Bld) [Entitic vol] 9.6 fL Normal 9.5-13.5 [facility] Comment on above: Performed By: #### L IPA #### [facility] [address] [place] [address] Dr. Ayden Cam PLT 183 103/ul Normal 150-[address] [facility] Comment on above: Performed By: #### L IPA #### [facility] [address] [place] [address] Dr. Ayden Cam RBC 4.75 106/ul Normal 4.20-5.[address] [facility] Comment on above: Performed By: #### L IPA #### [facility] [address] [place] [address] Dr. Ayden Cam WBC 7.6 103/ul Normal 4.0-11.0 [facility] Comment on above: Performed By: #### L IPA #### [facility] [address] [place] [address] Dr. Ayden Cam Covid-19 PCR ([facility])on SARS-CoV-2 (COVID-19) RNA LOWELL+probe Ql (Unsp spec) Not detected Normal NOT DETECTED [facility] Comment on above: Result Comment: When [...] for this test is supported by the [employer] Supervisor of Health and Human Service's declaration that [...] used). Performed By: #### L IPA #### [facility] [address] [place] [address] Dr. Ayden Cam ER URINE PROFILEon 3 Bilirubin Ql (U) Negative Normal NEGATIVE [facility] Comment on above: Performed By: #### L ACT #### [facility] [address] [place] [address] Dr. Ayden Cam Clarity (U) CLEAR Normal CLEAR [facility] Comment on above: Performed By: #### L ACT #### [facility] [address] [place] [address] Dr. Ayden Cam Color (U) LT. YELLOW Normal YELLOW [facility] Comment on above: Performed By: #### L ACT #### [facility] [address] [place] [address] Dr. Ayden Cam ERUAHD A micrscopic examina tion will be performed if indicated. Normal [facility] Comment on above: Performed By: #### L ACT #### [facility] [address] [place] [address] Dr. Ayden Cam Glucose Ql (U) Negative Normal NEGATIVE [facility] Comment on above: Performed By: #### L ACT #### [facility] [address] [place] [address] Dr. Ayden Cam Hemoglobin Ql (U) Negative Normal NEGATIVE [facility] Comment on above: Performed By: #### L ACT #### [facility] [address] [place] [address] Dr. Ayden Cam Ketones Ql (U) Negative Normal NEGATIVE [facility] Comment on above: Performed By: #### L ACT #### [facility] [address] [place] [address] Dr. Ayden Cam LEUKOCYTES Negative Normal NEGATIVE [facility] Comment on above: Performed By: #### L ACT #### [facility] [address] [place] [address] Dr. Ayden Cam Nitrite Ql (U) Negative Normal NEGATIVE [facility] Comment on above: Performed By: #### L ACT #### [facility] [address] [place] [address] Dr. Ayden Cam pH (U) 8.5 [pH] Normal 5-9 [facility] Comment on above: Performed By: #### L ACT #### [facility] [address] [place] [address] Dr. Ayden Cam SPEC GRAVITY 1.015 Normal 1.005-<=1. 025 [facility] Comment on above: Performed By: #### L ACT #### [facility] [address] [place] [address] Dr. Ayden Cam UA PROTEIN Negative Normal NEGATIVE/ TRACE [facility] Comment on above: Performed By: #### L ACT #### [facility] [address] [place] [address] Dr. Ayden Cam UR MICRO IND NOT INDICATED Normal [facility] Comment on above: Performed By: #### L ACT #### [facility] [address] [place] [address] Dr. Ayden Cam Urobilinogen Qn (U) 0.2 {Peggy'U}/dL Normal 0.2 - 1. 0 [facility] Comment on above: Performed By: #### L ACT #### [facility] [address] [place] [address] Dr. Ayden Cam LACTATE/LACTIC ACIDon 2022 Lactate [Moles/Vol] 0.8 mmol/L Normal 0.4-1.9 [facility] Comment on above: Performed By: #### L ACT #### [facility] [address] [place] [address] Dr. Ayden Cam LIPASEon 10-04-2022 Lipase [Catalytic activity/Vol] 170.0 U/L Normal 73.0-393.0 [facility] Comment on above: Performed By: #### L ACT #### [facility] [address] [place] [address] Dr. Ayden Cam PROF 14(COMP METB)on 023 Albumin [Mass/Vol] 3.8 g/dL Normal 3.4-5.0 [facility] Comment on above: Performed By: #### L ACT #### [facility] [address] [place] [address] Dr. Ayden Cam Albumin/Globulin [Mass ratio] 1.1 {ratio} Normal [facility] Comment on above: Performed By: #### L ACT #### [facility] [address] [address] [address] Ayden Cam ALP [Catalytic activity/Vol] 101 U/L Normal 46-116 [facility] Comment on above: Performed By: #### L ACT #### [facility] [address] [place] [address] Dr. Ayden Cam ALT [Catalytic activity/Vol] 94 U/L Critically high 14-59 [facility] Comment on above: Performed By: #### L ACT #### [facility] [address] [place] [address] Dr. Ayden Cam Anion gap [Moles/Vol] 11.1 mmol/L Normal [facility] Comment on above: Performed By: #### L ACT #### [facility] [address] [place] [address] Dr. Ayden Cam AST [Catalytic activity/Vol] 59 U/L Critically high 15-37 [facility] Comment on above: Performed By: #### L ACT #### [facility] [address] [place] [address] Dr. Ayden Cam Bilirubin [Mass/Vol] 0.3 mg/dL Normal 0.2-1.0 [facility] Comment on above: Performed By: #### L ACT #### [facility] [address] [place] [address] Dr. Ayden Cam Calcium [Mass/Vol] 9.5 mg/dL Normal 8.5-10.1 [facility] Comment on above: Performed By: #### L ACT #### [facility] [address] [place] [address] Dr. Ayden Cam Chloride [Moles/Vol] 99 mmol/L Normal 98-107 [facility] Comment on above: Performed By: #### L ACT #### [facility] [address] [address] [address] Ayden Cam CO2 [Moles/Vol] 29.7 mmol/L Normal 21.0-32.0 [facility] Comment on above: Performed By: #### L ACT #### [facility] [address] [address] [address] Ayden Cam Creatinine [Mass/Vol] 0.61 mg/dL Normal 0.55-1.02 [facility] Comment on above: Performed By: #### L ACT #### [facility] [address] [address] [address] Ayden Cam EGFR-AF FIJIAN >60 Normal >=60 [facility] Comment on above: Performed By: #### L ACT #### [facility] [address] [address] [address] Ayden Cam EGFR-NON AF FIJIAN >60 Normal >=60 [facility] Comment on above: Performed By: #### L ACT #### [facility] [address] [address] [address] Ayden Cam Globulin (S) [Mass/Vol] 3.4 g/dL Normal [facility] Comment on above: Performed By: #### L ACT #### [facility] [address] [place] [address] Dr. Ayden Cam Glucose [Mass/Vol] 111 mg/dL Critically high 74-106 [facility] Comment on above: Performed By: #### L ACT #### [facility] [address] [address] [address] Ayden Cam Potassium [Moles/Vol] 3.8 mmol/L Normal 3.5-5.1 [facility] Comment on above: Performed By: #### L ACT #### [facility] [address] [address] [address] Ayden Cam Protein [Mass/Vol] 7.2 g/dL Normal 6.4-8.2 [facility] Comment on above: Performed By: #### L ACT #### [facility] [address] [address] [address] Ayden Cam Sodium [Moles/Vol] 136 mmol/L Normal 136-145 [facility] Comment on above: Performed By: #### L ACT #### [facility] [address] [address] [address] Ayden Cam Urea nitrogen [Mass/Vol] 23.0 mg/dL Critically high 7.0-18.0 [facility] Comment on above: Performed By: #### L ACT #### [facility] [address] [address] [address] Ayden Cam Urea nitrogen/Creatinine [Mass ratio] 37.7 mg/mg Normal [facility] Comment on above: Performed By: #### L ACT #### [facility] [address] [place] [address] Dr. Ayden Cam TROPONIN, HIGH SENSITIVITYon 10-04-2022 HSTROP 8.9 pg/mL Normal 4.0-51.3 [facility] Comment on above: Result Comment: CUT- OFF POINTS HAVE BEEN ESTABLISHED BASED ON THE FOURTH UNIVERSAL DEFINITIONS OF MYOCARDIAL INFARCTION. THE UPPER REFERENCE LIMIT (URL) OF TROPONIN, DEFINED THE 99TH PERCENTILE OF cTnI DISTRIBUTION IN A REFERENCE POPULATION, HAS BEEN CONFIRMED THE DECISION THRESHOLD FOR DC DIAGNOSIS. Performed By: #### L ACT #### [facility] [address] [place] [address] Dr. Ayden Cam LIPID PROFILEon 09-19-2022 CHOL-HDL RATIO NORM SEE BELOW Normal [facility] Comment on above: Result Comment: 3.3 - 4.4 LOW RISK 4.4 - 7.1 AVERAGE RISK 7.1 - 11.0 MODERATE RISK >11.0 HIGH RISK Performed By: #### L IPA #### [facility] [address] [place] [address] Dr. Ayden Cam Cholesterol [Mass/Vol] 116 mg/dL Normal <=200 [facility] Comment on above: Performed By: #### L IPA #### [facility] [address] [address] [address] Ayden Cam Cholesterol in HDL [Mass/Vol] 59 mg/dL Normal 40-60 [facility] Comment on above: Performed By: #### L IPA #### [facility] [address] [address] [address] Ayden Cam Cholesterol in LDL [Mass/Vol] 34.0 mg/dL Normal [facility] Comment on above: Performed By: #### L IPA #### [facility] [address] [place] [address] Dr. Ayden Cam Cholesterol.total/Chol esterol in HDL [Mass ratio] 2.0 {ratio} Normal [facility] Comment on above: Performed By: #### L IPA #### [facility] [address] [place] [address] Dr. Ayden Cam HDL NORMAL > or = 60 mg/dl - LO W CARDIOVASCULAR RISK <40 mg/dl - HIGH CARDIOVASCULAR RISK Normal [facility] Comment on above: Performed By: #### L IPA #### [facility] [address] [place] [address] Dr. Ayden Cam LDL CALC NORMAL SEE BELOW Normal [facility] Comment on above: Result Comment: <100 mg/dl OPTIMAL 100 - 129 mg/dl NEAR OR ABOVE OPTIMAL 130 - 159 mg/dl BORDERLINE HIGH 160 - 189 mg/dl HIGH >190 mg/dl VERY HIGH Performed By: #### L IPA #### [facility] [address] [place] [address] Dr. Ayden Cam Triglyceride [Mass/Vol] 115 mg/dL Normal <=150 [facility] Comment on above: Performed By: #### L IPA #### [facility] [address] [place] [address] Dr. Ayden aCm VLDL CALC 23.0 mg/dL Normal [facility] Comment on above: Performed By: #### L IPA #### [facility] [address] [place] [address] Dr. Ayden Cam VITAMIN D 25 OHon 09-19-2022 VIT D 25-OH 89.3 ng/mL Normal [facility] Comment on above: Performed By: #### V ITAD #### [facility] [address] [place] [address] Dr. Ayden Cam VIT D RANGES SEE BELOW Normal [facility] Comment on above: Result Comment: <20 ng/mL Vit D deficient 20 - <30 ng/mL Vit D insufficient 30 - 100 ng/mL Vit D sufficient >100 ng/mL Potential Toxicity Performed By: #### V ITAD #### [facility] [address] [address] [address] Ayden Cam Office Visit (Cardiology)on 08-15-2022 Follow-up visit Diagnoses/Problems Assessed Atherosclerosis of coronary artery of [place] heart without angina pectoris (414.01) (I25.10) History of coronary artery bypass graft (V45.81) (Z95.1) Ischemic cardiomyopathy (414.8) (I25.5) Hyperlipidemia (272.4) (E78.5) Essential hypertension, benign (401.1) (I10) Never a smoker Overweight with body mass index (BMI) of 26 to 26.9 in adult (278.02,V85.22) (E66.3,Z68.26) Paroxysmal SVT (supraventricular tachycardia) (427.0) (I47.1) Orders Atherosclerosis of coronary artery of [place] heart without angina pectoris, Essential hypertension, benign, Hyperlipidemia Basic Metabolic Panel; Status:Active - Retrospective Authorization; Requested for:[id number]; Lipid Panel; Status:Active - Retrospective Authorization; Requested for:[id number]; Overweight with body mass index (BMI) of 26 to 26.9 in adult Healthy Weight Tips; Status:Complete - Retrospective Authorization; Done: [id number] Some eating tips that can help you lose weight.; Status:Complete - Retrospective Authorization; Done: [id number] SocHx: Never a smoker Tobacco Use Screening; Status:Complete; Done: [id number] Patient Instructions Please bring all medicines, vitamins, [...] She has a history of prior inferior DC, prior PCI with subsequent three-vessel CABG and [...] CHEST PAIN.CALL 911 IF PAIN PERSISTS. Nyamyc [id number] UNIT/GM External Powderapply topically to affected area [...] no s (more content not included)... Normal [employer] Tobacco Screening.on Adult depression screening assessment No [facility] y 250 DO Work Phone: Fall risk assessment a) No falls within the last year [facility] [employer] y 250 DO Work Phone: Tobacco use status [facility] b) No [facility] y 250 DO Work Phone: MRI [...] by Wilder Arango on 08/01/2022 1102 Normal [place] [employer] Tobacco Screening.on 021 Tobacco use status [facility] b) No -[facility] 250 DO Work Phone: Vital Signs Date Time Vital Sign Value Performing Clinician Facility 05-15-2025 11:45-0400 Body height 160 cm Raji RINALDI Work Phone: [facility] 05-15-2025 11:45-0400 Body mass index (BMI) [Ratio] 30.82 kg/m2 Raji RINALDI Work Phone: [facility] 05-15-2025 11:45-0400 Body weight 78.93 kg Raji RINALDI Work Phone: [facility] 09-05-2024 09:53-0500 Body height 160 cm Celso Garibay DO Work Phone: [facility] 09-05-2024 09:53-0500 Body mass index (BMI) [Ratio] 30.11 kg/m2 Celso Garibay DO Work Phone: [facility] 09-05-2024 09:53-0500 Body weight 77.11 kg Celso Garibay DO Work Phone: [facility] 09-05-2024 09:53-0500 Diastolic blood pressure 80 mm[Hg] Celso Garibay DO Work Phone: [facility] 09-05-2024 09:53-0500 Heart rate 66 /min Celso Garibay DO Work Phone: [facility] 09-05-2024 09:53-0500 Systolic blood pressure 118 mm[Hg] Celso Garibay DO Work Phone: [facility] 08-19-2024 01:03-0500 Diastolic blood pressure 69 mm[Hg] Ashley Grigsby MD Work Phone: [facility] 08-19-2024 01:03-0500 Heart rate 60 /min Ashley Grigsby MD Work Phone: [facility] 08-19-2024 01:03-0500 Respiratory rate 20 /min Ashley Grigsby MD Work Phone: [facility] 08-19-2024 01:03-0500 SaO2% (BldA) [Mass fraction] 96 % Ashley Grigsby MD Work Phone: [facility] [facility] 08-[facility]-2024 01:03-0500 Systolic blood pressure 130 mm[Hg] Ashley Grigsby MD Work Phone: [facility] 08-18-2024 20:55-0500 Body height 160.02 cm Ashley Grigsby MD Work Phone: [facility] 08-18-2024 20:55-0500 Body temperature 97.4 [degF] Ashley Grigsby MD Work Phone: [facility] 08-18-2024 20:55-0500 Body weight 78.5 kg Ashley Grigsby MD Work Phone: [facility] 08-13-2024 12:21-0500 Body height 160 cm Celso Garibay DO Work Phone: [facility] 08-13-2024 12:21-0500 Body mass index (BMI) [Ratio] 30.47 kg/m2 Celso Garibay DO Work Phone: [facility] 08-13-2024 12:21-0500 Body weight 78.02 kg Celso Garibay DO Work Phone: [facility] 08-13-2024 12:21-0500 Diastolic blood pressure 94 mm[Hg] Celso Garibay DO Work Phone: [facility] 08-13-2024 12:21-0500 Heart rate 76 /min Celso Garibay DO Work Phone: [facility] 08-13-2024 12:21-0500 Systolic blood pressure 138 mm[Hg] Celso Garibay DO Work Phone: [facility] 08-05-2024 11:08-0500 Blood Pressure Location [facility] 08-05-2024 11:08-0500 Body temperature 98.6 [degF] [facility] 08-05-2024 11:08-0500 Diastolic blood pressure 80 mm[Hg] [facility] 08-05-2024 11:08-0500 Heart rate 68 /min [facility] 08-05-2024 11:08-0500 Respiratory rate 16 /min [facility] 08-05-2024 11:08-0500 Systolic blood pressure 131 mm[Hg] [facility] 04-10-2024 15:08-0400 Blood Pressure Location [facility] [facility] 04-10-2024 15:08-0400 Diastolic blood pressure 80 mm[Hg] [place] [facility] 04-10-2024 15:08-0400 Heart rate 75 /min JENNIFER MARTINO [facility] 04-10-2024 15:08-0400 Respiratory rate 16 /min JENNIFER MARTINO [facility] 04-10-2024 15:08-0400 Systolic blood pressure 131 mm[Hg] JENNIFER MARTINO [facility] 02-29-2024 11:15-0400 Body height 160 cm [facility] 02-29-2024 11:15-0400 Body mass index (BMI) [Ratio] 29.58 kg/m2 [facility] 02-29-2024 11:15-0400 Body weight 75.[address] 01-17-2024 16:03-0400 Body height 161.3 cm Stephanie Berger MD PhD Work Phone: [facility] 01-17-2024 16:03-0400 Body mass index (BMI) [Ratio] 30.16 kg/m2 Stephanie Berger MD PhD Work Phone: [facility] 01-17-2024 16:03-0400 Body weight 78.47 kg Stephanie Berger MD PhD Work Phone: [facility] 08-14-2023 15:29-0500 Body height 161.3 cm Celso Garibay DO Work Phone: [facility] 08-14-2023 15:29-0500 Body mass index (BMI) [Ratio] 28.07 kg/m2 Celso Garibay DO Work Phone: [facility] 08-14-2023 15:29-0500 Body weight 73.03 kg Celso Garibay DO Work Phone: [facility] 08-14-2023 15:29-0500 Diastolic blood pressure 80 mm[Hg] Celso Garibay DO Work Phone: [facility] 08-14-2023 15:29-0500 Heart rate 56 /min Celso Garibay DO Work Phone: [facility] 08-14-2023 15:29-0500 Systolic blood pressure 138 mm[Hg] Celso Garibay DO Work Phone: [facility] 06-18-2023 15:15-0400 Diastolic blood pressure 78 mm[Hg] Gaby Tello DO Work Phone: [employer] 06-18-2023 15:15-0400 Heart rate 70 /min Gaby Tello DO Work Phone: [employer] 06-18-2023 15:15-0400 Respiratory rate 18 /min Gaby Tello DO Work Phone: [employer] 06-18-2023 15:15-0400 SaO2% (BldA) [Mass fraction] 96 % Gaby Tello DO Work Phone: [employer] 06-18-2023 15:15-0400 Systolic blood pressure 173 mm[Hg] Gaby Tello DO Work Phone: [employer] 06-18-2023 14:36-0400 Body temperature 97 [degF] Gaby Novoag DO Work Phone: [employer] 06-18-2023 13:30-0400 Body height 160 cm Gaby Novoag DO Work Phone: [employer] 06-18-2023 13:30-0400 Body mass index (BMI) [Ratio] 27.03 kg/m2 Gaby Novoag DO Work Phone: [employer] 06-18-2023 13:30-0400 Body weight 69.22 kg Gaby Novoag DO Work Phone: [employer] 11-02-2022 15:02-0500 Diastolic blood pressure 84 mm[Hg] MD Ashley Grigsby Work Phone: [facility] 11-02-2022 15:02-0500 Heart rate 78 /min MD Ashley Grigsby Work Phone: [facility] 11-02-2022 15:02-0500 Respiratory rate 18 /min MD Ashley Grigsby Work Phone: [facility] 11-02-2022 15:02-0500 SaO2% (BldA) [Mass fraction] 100 % MD Ashley Grigsby Work Phone: [facility] 11-02-2022 15:02-0500 Systolic blood pressure 161 mm[Hg] MD Ashley Grigsby Work Phone: [facility] 11-02-2022 13:20-0500 Body height 160.02 cm MD Ashley Grigsby Work Phone: [facility] 11-02-2022 13:20-0500 Body temperature 98.2 [degF] MD Ashley Grigsby Work Phone: [facility] 11-02-2022 13:20-0500 Body weight 60.78 kg MD Ashley Grigsby Work Phone: [facility] 11-01-2022 13:26-0500 Diastolic blood pressure 61 mm[Hg] MD Ashley Grigsby Work Phone: [facility] 11-01-2022 13:26-0500 Heart rate 59 /min MD Ashley Girgsby Work Phone: [facility] 11-01-2022 13:26-0500 Respiratory rate 20 /min MD Ashley Grigsby Work Phone: [facility] 11-01-2022 13:26-0500 SaO2% (BldA) [Mass fraction] 99 % MD Ashley Grigsby Work Phone: [facility] 11-01-2022 13:26-0500 Systolic blood pressure 124 mm[Hg] MD Ashley Grigsby Work Phone: [facility] 11-01-2022 10:53-0500 Body height 160.02 cm MD Ashley Grigsby Work Phone: [facility] 11-01-2022 10:53-0500 Body temperature 97.7 [degF] MD Ashley Grigsby Work Phone: [facility] 11-01-2022 10:53-0500 Body weight 61.68 kg MD Ashley Grigsby Work Phone: [facility] 10-24-2022 15:45-0500 Body height 159.38 cm Imad Asaad Other [facility] [employer] Other 10-24-2022 15:45-0500 Body mass index (BMI) [Ratio] 24.28 kg/m2 Imad Asaad Other [facility] [employer] Other 10-24-2022 15:45-0500 Body weight 61.69 kg Imad Asaad Other [facility] [employer] Other 10-24-2022 15:45-0500 Diastolic blood pressure 94 mm[Hg] Imad Asaad Other [facility] [employer] Other 10-24-2022 15:45-0500 Systolic blood pressure 133 mm[Hg] Imad Asaad Other [facility] [employer] Other 09-19-2022 00:00-0500 34 1 Ashley M Hoy Work Phone: [facility] DO Work Phone: Comment on above: [facility] 08-15-2022 15:23-0500 Body height 160.02 cm Ashley M Hoy Work Phone: [facility] DO Work Phone: 08-15-2022 15:23-0500 Body mass index (BMI) [Ratio] 26.22 kg/m2 Ashley Tyree Hoy Work Phone: [facility] DO Work Phone: 08-15-2022 15:23-0500 Body surface area Derived from formula 1.7 m2 Ashley Tyree Hoy Work Phone: [facility] DO Work Phone: 08-15-2022 15:23-0500 Body weight 67.13 kg Ashley Tyree Hoy Work Phone: [facility] DO Work Phone: 08-15-2022 15:23-0500 Diastolic blood pressure 82 mm[Hg] Ashley Tyree Hoy Work Phone: [facility] DO Work Phone: 08-15-2022 15:23-0500 Heart rate 80 /min Ashley Tyree Hoy Work Phone: [facility] DO Work Phone: 08-15-2022 15:23-0500 Systolic blood pressure 132 mm[Hg] Ashley Tyree Hoy Work Phone: [facility] DO Work Phone: 06-02-2022 08:12-0400 Blood Pressure Location Santiago ACRRILLO [facility] 06-02-2022 08:12-0400 Diastolic blood pressure 86 mm[Hg] Santiago CARRILLO [facility] 06-02-2022 08:12-0400 Heart rate 60 /min Santiago CARRILLO [facility] 06-02-2022 08:12-0400 Respiratory rate 16 /min Santiago CARRILLO [facility] 06-02-2022 08:12-0400 Systolic blood pressure 144 mm[Hg] Santiago CARRILLO [facility] 08-17-2021 09:47-0500 Body height 160.02 cm Ashley M Hoy Work Phone: [facility] DO Work Phone: 08-17-2021 09:47-0500 Body mass index (BMI) [Ratio] 25.01 kg/m2 Ashley M Hoy Work Phone: [facility] DO Work Phone: 08-17-2021 09:47-0500 Body surface area Derived from formula 1.67 m2 Ashley M Hoy Work Phone: [facility] DO Work Phone: 08-17-2021 09:47-0500 Body weight 64.05 kg Ashley M Hoy Work Phone: [facility] DO Work Phone: 08-17-2021 09:47-0500 Diastolic blood pressure 86 mm[Hg] Ashley M Hoy Work Phone: [facility] DO Work Phone: 08-17-2021 09:47-0500 Heart rate 72 /min Ashley M Hoy Work Phone: [facility] DO Work Phone: 08-17-2021 09:47-0500 Systolic blood pressure 134 mm[Hg] Ashley M Hoy Work Phone: [facility] DO Work Phone: Encounters Encounter Date Encounter Type Care Provider Facility Start: 06-23-2025 End: 06-23-2025 Ruben Sinha DO Work Phone: [facility] Start: 06-23-2025 End: 06-23-2025 Bamboo flowsheet Bridgett Soo Stanleytito DO Work Phone: [facility] Start: 06-23-2025 End: 06-23-2025 ambulatory Fawad BRIDGETT Soo SINHA Not Available Start: 06-23-2025 End: 06-23-2025 Office outpatient visit 15 minutes JrFawad Sarmiento Soo Stanleytito DO Work Phone: [facility] Comment on above: Tendonitis of wrist, right; Right wrist pain Start: 06-16-2025 End: 06-16-2025 ambulatory BRIDGETT GONZALEZ Not Available Start: 06-02-2025 End: 06-02-2025 Bamboo flowsheet JrFawad Bridgett Soo Stanleytito DO Work Phone: [facility] Start: 06-02-2025 End: 06-02-2025 Bamboo flowsheet Bridgett Soo Stanleytito DO Work Phone: [facility] Start: 06-02-2025 End: 06-02-2025 Office outpatient visit 15 minutes JrFawad Angeltito DO Work Phone: [facility] Comment on above: Chronic pain of righ t wrist Start: 06-02-2025 End: 06-02-2025 ambulatory BRIDGETT GONZALEZ Not Available Start: 05-27-2025 End: 05-27-2025 Patient encounter procedure Rae Louie MD Work Phone: [facility] Comment on above: Numbness [...] upper extremity Start: 05-08-2025 End: 05-08-2025 ambulatory [facility] Start: 01-30-2025 End: 01-30-2025 ambulatory [facility] Start: 01-17-2025 End: 01-17-2025 ambulatory [facility] Start: 01-09-2025 End: 01-09-2025 ambulatory [facility] Start: 12-31-2024 End: 12-31-2024 ambulatory [facility] Start: 12-12-2024 End: 12-12-2024 ambulatory [facility] Start: 11-26-2024 End: 11-26-2024 Bamboo flowsheet Raji RINALDI Work Phone: [facility] Start: 11-26-2024 End: 11-26-2024 Bamboo flowsheet Raji Byrd PA Work Phone: [facility] Start: 11-26-2024 End: 11-26-2024 Office outpatient visit 15 minutes Raji RINALDI Work Phone: [facility] Comment on above: Acute pain of right wrist (Primary Dx); Tendonitis of wrist, right Start: 11-26-2024 End: 11-26-2024 ambulatory RAJI BYRD Not Available Start: 10-11-2024 End: 10-11-2024 ambulatory RADHA Vann FIONA [facility] Start: 09-05-2024 End: 09-05-2024 ambulatory [facility] Start: 09-05-2024 End: 09-05-2024 Transitional care manage srvc 14 day discharge Celso Garibay DO Work Phone: [facility] Comment on above: Atherosclerosis of c oronary artery bypass graft of [place] heart without angina pectoris; S/P PTCA (percutaneous transluminal coronary angioplasty); History of coronary artery bypass graft; Ischemic cardiomyopathy; Essential hypertension; Mixed hyperlipidemia; BMI 30.0-30.9,adult; Statin intolerance Start: 08-20-2024 End: 08-22-2024 Evaluation and management of inpatient Donis Arroyo Facility:[facility] Start: 08-18-2024 Evaluation and management of inpatient Ashley Grigsby MD Work Phone: [facility] [place] [facility] Work Phone: Start: 08-18-2024 observation encounter Ashley Grigsby MD Work Phone: [facility] Work Phone: Start: 08-13-2024 End: 08-13-2024 ambulatory [facility] Start: 08-13-2024 End: 08-13-2024 Office outpatient visit 25 minutes Celso Cintrondon DO Work Phone: [facility] Comment on above: Atherosclerosis of c oronary artery of [place] heart without angina pectoris, unspecified vessel or lesion type; History of coronary artery bypass graft; Essential hypertension, benign; Hyperlipidemia, unspecified hyperlipidemia type; Acute pancreatitis, unspecified complication status, unspecified pancreatitis type ([facility]) Start: 08-05-2024 End: 08-05-2024 ambulatory GENTRY-C JENNIFER MARTINO Facility:[facility] Start: 08-05-2024 End: 08-05-2024 Patient encounter procedure JENNIFER MARTINO [facility] Start: 04-10-2024 End: 04-10-2024 ambulatory GENTRY-Soo MARTINO Facility:[facility] Start: 04-10-2024 End: 04-10-2024 Patient encounter procedure JENNIFER MARTINO [facility] Start: 03-11-2024 End: 03-11-2024 ambulatory PA-C JENNIFER MARTINO Facility:[facility] Start: 03-11-2024 End: 03-11-2024 Patient encounter procedure JENNIFER MARTINO [facility] Start: 03-07-2024 End: 03-07-2024 Evaluation and management of inpatient [facility] Start: 03-06-2024 End: 03-07-2024 Evaluation and management of inpatient [facility] Start: 03-06-2024 End: 03-06-2024 Evaluation and management of inpatient [facility] Start: 02-29-2024 End: 02-29-2024 Evaluation and management of inpatient [facility] Start: 02-29-2024 End: 02-29-2024 Admission to [facility] Phone Call Provider 4 [facility] Start: 02-14-2024 End: 02-14-2024 Orders Only Stephanie Berger MD PhD Work [facility]: [facility] Comment on above: Xerostomia (Primary Dx) Start: 01-17-2024 End: 01-17-2024 ambulatory STEPHANIE BERGER [facility] Start: 01-17-2024 End: 01-17-2024 Office outpatient visit 15 minutes Stephanie Berger MD PhD Work Phone: [facility] Comment on above: Dry nose (Primary Dx ); Xerostomia; Allergic rhinitis, unspecified seasonality, unspecified trigger Start: 08-14-2023 End: 08-14-2023 Office outpatient visit 15 minutes Celso Garibay DO Work Phone: [facility] Comment on above: Atherosclerosis of c oronary artery of [place] heart without angina pectoris, unspecified vessel or lesion type; History of coronary artery bypass graft; Ischemic cardiomyopathy; Essential hypertension, benign Start: 06-18-2023 End: 06-18-2023 [facility] Start: 06-18-2023 End: 06-18-2023 Subsequent hospital visit by physician Gaby Tello DO Work Phone: [facility] Comment on above: Post-menopausal blee ding; Inclusion cyst Start: 05-24-2023 Rx Renewal [facility] Work [facility]: Start: 05-17-2023 Patient encounter procedure Ashley Grigsby Work Phone: [facility] 250 DO Work Phone: Start: 05-15-2023 ambulatory ASHLEY GRIGSBY [facility] Start: 12-12-2022 End: 12-12-2022 ambulatory MD Ashley Grigsby Work Phone: [facility] Work Phone: Start: 12-12-2022 End: 12-12-2022 Patient encounter procedure MD Ashley Grigsby Work Phone: [facility] Work Phone: Start: 11-20-2022 End: 11-20-2022 ambulatory Imad Asaad Other [facility] [employer] Other Start: 11-20-2022 Telephone encounter Imad Asaad [facility] Start: 11-10-2022 End: 11-10-2022 Patient encounter procedure MD Ashley Grigsby Work Phone: [facility] [place] Work Phone: Start: 11-02-2022 End: 11-02-2022 Admission to same day surgery center MD Ashley Grigsby Work Phone: [facility] Work Phone: Start: 11-02-2022 End: 11-02-2022 ambulatory MD Ashley Grigsby Work Phone: [facility] Work Phone: Start: 11-01-2022 Telephone encounter Imad Asaad [facility] Start: 11-01-2022 End: 11-01-2022 Admission to same day surgery center MD Ashley Grigsby Work Phone: [facility] Work Phone: Start: 11-01-2022 End: 11-01-2022 ambulatory MD Ashley Grigsby Work Phone: [facility] Work Phone: Start: 10-24-2022 End: 10-24-2022 ambulatory Imad Asaad Other [facility] [employer] Other Start: 10-24-2022 [facility] visit new patient Imad Asaad [facility] Start: 10-16-2022 End: 10-17-[address] ASHLEY GRIGSBY Facility:[facility] Start: 10-09-2022 End: 10-10-[address] ASHLEY GRIGSBY Facility:[facility] Start: 10-05-2022 Rx Renewal Ashley Grigsby Work Phone: [facility] 250 DO Work Phone: Start: 10-04-2022 End: 10-06-[address] ASHLEY GRIGSBY Facility:[facility] Start: 09-19-2022 End: 09-20-[address] DOCTOR PATEL Facility:[facility] Start: 08-15-2022 Office outpatient vi sit 15 minutes Ashley Grigsby Work Phone: [facility] 250 DO Work Phone: Start: 08-15-2022 Patient encounter procedure Ashley Grigsby Work Phone: [facility] DO Work Phone: Start: 06-02-2022 End: 06-02-2022 Patient encounter procedure Santiago Guzman [facility] Start: 05-31-2022 Rx Renewal Ashley Grigsby Work Phone: [facility] 250 DO Work Phone: Start: 02-07-2022 End: 02-07-2022 Patient encounter procedure Ashley Grigsby MD Work Phone: [facility] Start: 02-07-2022 End: 02-07-2022 Subsequent hospital visit by physician Ashley Grigsby MD Work Phone: [facility] Comment on above: Women's annual routi ne gynecological examination Start: 11-21-2021 Rx Renewal Ashley Grigsby Work Phone: [facility] 250 DO Work Phone: Start: 08-17-2021 Office outpatient vi sit 15 minutes Ashley Grigsby Work Phone: [facility] 250 DO Work Phone: Start: 08-19-2019 End: [...] Phone: Appendectomy Ashley Grigsby Work Phone: Appendectomy Santiaog CARRILLO Bypass of stomach Santiago GALVAN Cataract [...] 11-02-2032 Screening for malignant neoplasm of colon [facility] Start: 02-07-2027 Screening for malignant neoplasm of cervix [facility] Start: 08-18-2025 End: 08-18-2025 Patient encounter procedure 08/18/2025 11:20 AM EST Office Visit [facility] [address] [facility] [address] [place] [address] Celso Garibay DO [address] [facility] [address] [place] [address] [facility] Start: 08-04-2025 End: 08-04-2025 Patient encounter procedure 08/04/2025 10:45 AM EST Office Visit [facility] [place] [phone] Jr. Bridgett Sinha, DO [address] [facility] [address] [place] [address] [facility] Start: 08-03-2025 End: 08-13-2025 Alanine aminotransferase [Enzymatic activity/volume] in Serum or Plasma by With P-5'-P Alanine Aminotransferase Lab Routine Hyperlipidemia, unspecified hyperlipidemia type Expected: 08/03/2025 (Approximate), Expires: 08/13/2025 [facility] [[email or web address] Service Area Work Phone: Comment on above: Expected: 08/03/2025 (Approximate), Expi res: 08/13/2025 Start: 08-03-2025 End: 08-13-2025 Aspartate aminotransferase [Enzymatic activity/volume] in Serum or Plasma by With P-5'-P Aspartate Aminotransferase Lab Routine Hyperlipidemia, unspecified hyperlipidemia type Expected: 08/03/2025 (Approximate), Expires: 08/13/[address] [facility] Work Phone: Comment on above: Expected: 08/03/2025 (Approximate), Expi res: 08/13/2025 Start: 08-03-2025 End: 08-13-2025 Lipid 1996 panel - Serum or Plasma Lipid Panel Lab Routine Hyperlipidemia, unspecified hyperlipidemia type Expected: 08/03/2025 (Approximate), Expires: 08/13/[address] [facility] Work Phone: Comment on above: Expected: 08/03/2025 (Approximate), Expi res: 08/13/2025 Start: 07-14-2025 End: 07-14-2025 ambulatory 07/14/2025 5:00 PM EDT Evaluation [facility] [address] [phone] Kayode Francois, PT [address] [facility] [place] [address] [facility] Start: 06-23-2025 End: 06-23-2025 Patient encounter procedure 06/23/2025 11:00 AM EDT Office Visit [facility] [address] [place] [id number] Jr. Bridgett Sinha, [address] [facility] [address] [place] [address] [facility] Start: 06-02-2025 End: 06-02-2026 MR Wrist - right WO contrast MR wrist right wo IV cont rast Imaging Routine Chronic pain of right wrist Expected: 06/02/2025 (Approximate), Expires: 06/02/2026 [facility] Work Phone: Comment on above: Expected: 06/02/2025 (Approximate), Expi res: 06/02/2026 Start: 06-02-2025 End: 06-02-2025 Patient encounter procedure [facility] Comment on above: Arrived Start: 06-01-2025 Influenza vaccination Influenza Vaccine (#1) [facility] Start: 05-15-2025 End: 05-15-2026 EMG AND NERVE CONDUCTION STUDY EMG AND NERVE CONDUCTIO N STUDY Neurology Routine Arm weakness Numbness Arm pain, right Ulnar neuropathy of right upper extremity Expected: 05/15/2025 (Approximate), Expires: 05/15/2026 [facility] Work Phone: Comment on above: Expected: 05/15/2025 (Approximate), Expi res: 05/15/2026 Start: 03-17-2025 End: 03-17-2025 Patient encounter procedure 03/17/2025 2:40 PM EDT Off [facility] Visit [facility] [address] [facility] [address] [place] [address] Celso Garibay DO [address] [facility] [address] [place] [address] [facility] Start: 02-28-2025 Adult BMI Screening Adult BMI Screening [facility] Start: 02-07-2025 Screening for malignant neoplasm of cervix [facility] Start: 01-16-2025 Adult BMI Screening Adult BMI Screening [facility] Start: 01-16-2025 Tobacco Screening Tobacco Screening [facility] Start: 01-15-2025 End: 01-15-2025 Patient encounter procedure 01/15/2025 4:00 PM EDT Off [facility] [address] [facility] [place] [phone] Stephanie Berger MD PhD [address] [facility] [address] [place] [address] [facility] Start: 11-26-2024 End: 11-26-2024 Patient encounter procedure 11/26/2024 1:00 PM EST Off ice Visit [facility] [address] [place] [id number] Raji Byrd PA [address] [place] [address] [address] [place] [address] Acute pain of right wrist (Primary Dx) [facility] Comment on above: Acute pain of right wrist (Primary Dx) Start: 08-19-2024 Screening for malignant neoplasm of cervix [facility] Start: 08-19-2024 [facility] Start: 08-19-2024 Referral to twisthand [facility] Start: 08-19-2024 [facility] Start: 08-18-2024 Hospital admission [facility] Start: 08-15-2024 Screening for malignant neoplasm of breast Mammogram [facility] Start: 08-13-2024 End: 08-13-2024 Patient encounter procedure 08/13/2024 11:30 AM EST Office Visit [facility] [address] [place] [address] Celso Garibay DO [address] [place] [address] [facility] Start: 2024 RSV High Risk: (Elderly (60+) or Population) (1 - Risk 60-74 years 1-dose series) RSV High Risk: (Elderly (60+) or Population) (1 - Risk 60-74 years 1-dose series) [facility] Start: 06-01-2024 COVID-19 Vaccine ( season) COVID-19 Vaccine ( season) [facility] Start: 06-01-2024 Influenza vaccination Influenza Vaccine [facility] Start: 03-06-2024 End: 03-06-2024 Admission to same day surgery center 03/06/2024 11:30 AM EDT - 03/06/2024 12:45 PM EDT Surgery [facility] [address] [place] [address] Danielle Magallon MD [address] [place] [address] ESOPHAGOGASTRODUODENOSCOPY DIAGNOSTIC [66549 (CPT )] [facility] Comment on above: ESOPHAGOGASTRODUODENOSCOPY DIAGNOSTIC [4 3235 (CPT )] Start: 03-06-2024 End: 03-06-2024 Esophagogastroduodenoscopy transoral diagnostic ESOPHAGOGASTRODUODENOSCOPY DIAGNOSTIC ACUTE RECURRING PANCREATITIS, EPIGASTRIC PAIN 03/06/2024 11:30 AM EDT [facility] Start: 03-06-2024 End: 03-06-2024 Esophagoscopy flexible transoral ultrasound exam ENDOSCOPIC ULTRASOUND UPPER ACUTE RECURRING PANCREATITIS, EPIGASTRIC PAIN 03/06/2024 11:30 AM EDT [facility] Start: 03-06-2024 Subsequent hospital visit by physician 03/06/2024 11:30 AM EDT Hospital Encounter [facility] [address] [facility] [place] [address] Danielle Magallon MD [address] [place] [address] [facility] Start: 02-14-2024 Depression Screen Depression Screen [facility] Start: 02-12-2024 End: 08-14-2024 Alanine aminotransferase [Enzymatic activity/volume] in Serum or Plasma by With P-5'-P Alanine Aminotransferase Lab Routine History of coronary artery bypass graft Ischemic cardiomyopathy Expected: 02/12/2024 (Approximate), Expires: 08/14/[address] [facility] Work Phone: Comment on above: Expected: 02/12/2024 (Approximate), Expi res: 08/14/2024 Start: 02-12-2024 End: 08-14-2024 Aspartate aminotransferase [Enzymatic activity/volume] in Serum or Plasma by With P-5'-P Aspartate Aminotransferase Lab Routine Atherosclerosis of coronary artery of [place] heart without angina pectoris, unspecified vessel or lesion type Ischemic cardiomyopathy Expected: 02/12/2024 (Approximate), Expires: 08/14/[address] [facility] Work Phone: Comment on above: Expected: 02/12/2024 (Approximate), Expi res: 08/14/2024 Start: 02-12-2024 End: 08-14-2024 Lipid 1996 panel - Serum or Plasma Lipid Panel Lab Routine Atherosclerosis of coronary artery of [place] heart without angina pectoris, unspecified vessel or lesion type Expected: 02/12/2024 (Approximate), Expires: 08/14/2024 [facility] [[email or web address] Service Area Work Phone: Comment on above: Expected: 02/12/2024 (Approximate), Expi res: 08/14/2024 Start: 08-14-2023 FUV, Provider: Celso Garibay, Status: Julio, Time: 3:00 PM FUV, Provider: Celso Garibay, Status: Julio, Time: 3:00 PM -[facility] 250 DO Work Phone: Start: 07-28-2023 Screening for malignant neoplasm of breast Breast cancer screen [facility] Start: 07-24-2023 Screening for malignant neoplasm of breast Mammogram [facility] Start: 07-03-2023 End: 07-03-2023 Patient encounter procedure 07/03/2023 4:45 PM EDT Off ice Visit [facility] [place] [address] Gaby Phillips, DO [address] [place], [place] [id number] post-op BA 05/16 [facility] Comment on above: post-op BA 05/16 Start: 06-18-2023 End: 06-18-2023 Hysteroscopy bx endometrium&/polypc w/wo d&c DILATATION AND CURETTAGE HYSTEROSCOPY Post-menopausal bleeding Inclusion cyst 06/18/2023 2:01 PM EDT [facility] Start: 06-01-2023 COVID-19 Vaccine () COVID-19 Vaccine () [facility] Start: 02-13-2023 End: 02-13-2023 Patient encounter procedure 02/13/2023 Office Visit Obstetrics and Gynecology Gaby Phillips, DO [address] [place] [address] [facility] Start: 12-12-2022 [facility] Start: 11-02-2022 [facility] Start: 11-01-2022 [facility] Start: 08-19-2022 Screening for malignant neoplasm of cervix Pap smear [facility] Start: 08-15-2022 FUV, Provider: Celso Garibay, Status: Pen, Time: 3:00 PM FUV, Provider: Celso Garibay, Status: Pen, Time: 3:00 PM [facility] 250 DO Work Phone: Start: 08-03-2022 Lipid panel Lipids [facility] Start: 09-26-2021 COVID-19 Vaccine (4 - Pfizer series) COVID-19 Vaccine (4 - Pfizer series) [facility] Start: 06-01-2019 Influenza vaccination Flu vaccine (#1) [facility] [place] [place] Start: 05-09-2018 Pneumococcal Vaccine: Pediatrics (0 to 5 Years) and At-Risk Patients (6 to 64 Years) (2 - PCV) Pneumococcal Vaccine: Pediatrics (0 to 5 Years) and At-Risk Patients (6 to 64 Years) (2 - PCV) [facility] Start: 05-09-2018 Pneumococcal Vaccine: Pediatrics (0 to 5 Years) and At-Risk Patients (6 to 64 Years) (2 of 2 - PCV) Pneumococcal Vaccine: Pediatrics (0 to 5 Years) and At-Risk Patients (6 to 64 Years) (2 of 2 - PCV) [facility] Start: 2014 Breast cancer screen Breast cancer screen [place], [place] Start: 2014 Colon cancer screen colonoscopy Colon cancer screen colonoscopy [place], [place] Start: 2014 Shingles Vaccine (1 of 2) Shingles Vaccine (1 of 2) [facility] Start: 08-26-2009 MMR Vaccines (1 of 1 - Standard series) MMR Vaccines (1 of 1 - Standard series) [facility] Start: 2009 Screening for malignant neoplasm of colon [facility] Start: 1999 Diabetes screen Diabetes screen [facility] Start: 1986 DTaP/Tdap/Td Vaccines (1 - Tdap) DTaP/Tdap/Td Vaccines (1 - Tdap) [facility] Start: 1985 Cervical cancer screen Cervical cancer screen [place], [place] Start: 1985 Screening for malignant neoplasm of cervix [facility] Start: 1983 DTaP,Tdap and Td Vaccines (1 - Tdap) DTaP,Tdap and Td Vaccines (1 - Tdap) [facility] Start: 1983 DTaP/Tdap/Td vaccine (1 - Tdap) DTaP/Tdap/Td vaccine (1 - Tdap) [facility] Start: 1982 Adult BMI Follow Up Plan Adult BMI Follow Up Plan [facility] Start: 1982 Diabetes mellitus screening Diabetes Screening [facility] Start: 1982 Hepatitis C screening [facility] Start: 1979 HIV screen HIV screen [place], [place] Start: 1979 HIV screening HIV screen [facility] Start: 1976 Depression Screen Depression Screen [facility] Start: 1976 Depression Screening Depression Screening [facility] Start: 1975 DTaP/Tdap/Td vaccine (1 - Tdap) DTaP/Tdap/Td vaccine (1 - Tdap) [place] Start: 1974 Lipid panel Lipids [facility] Start: 1974 Lipid screen Lipid screen [place], [place] Start: 1964 Hepatitis B vaccine (1 of 3 - 3-dose series) Hepatitis B vaccine (1 of 3 - 3-dose series) [facility] Start: 1964 Hepatitis B Vaccines (1 of 3 - 3-dose series) Hepatitis B Vaccines (1 of 3 - 3-dose series) [facility] Start: 1964 Hepatitis C screen Hepatitis C screen [place], [place] Start: 1964 HIV screening HIV Screening [facility] Start: 1964 Lipid panel Lipid Panel [facility] Start: 1964 Screening for malignant neoplasm of colon [facility] Start: 1964 Yearly Adult Physical Yearly Adult Physical [facility] Actin smooth muscle IgG Ab [Units/volume] in Serum [facility] Alpha 1 antitrypsin [Mass/volume] in Serum or Plasma [facility] Alpha 1 antitrypsin phenotyping [Identifier] in Serum or Plasma by Immunofixation [facility] Ceruloplasmin [Mass/ volume] in Serum or Plasma [facility] End: 08-19-2019 Cytopathology procedure, preparation of smear, genital source PAP SMEAR Lab Routine Well female exam with routine gynecological exam 1 Occurrences starting 08/19/2019 until 08/19/2019 [place] Comment on above: 1 Occurrences starting 08/19/2019 until 08/19/2019 End: 02-07-2022 Cytopathology procedure, preparation of smear, genital source PAP SMEAR Lab Routine Women's annual routine gynecological examination 1 Occurrences starting 02/07/2022 until 02/07/2022 [facility] Work Phone: Comment on above: 1 Occurrences starting 02/07/2022 until 02/07/2022 Glucose measurement estimated from glycated hemoglobin [facility] Hepatitis A virus Ab [Presence] in Serum by Immunoassay [facility] Hepatitis B core ant ibody measurement [facility] Hepatitis B virus khanna rface Ab [Presence] in Serum [facility] Hepatitis B virus khanna rface Ag [Presence] in Serum or Plasma by Immunoassay [facility] Hepatitis C virus Ig G Ab [Presence] in Serum or Plasma by Immunoassay [facility] Homogenous nuclear A b pattern [Titer] in Serum [facility] IgG [Mass/volume] in Serum or Plasma [facility] End: 06-18-2023 INITIATE PACU OXYGEN THERAPY PROTOCOL Initiate PACU Oxygen Therapy Protocol Respiratory Care Routine Continuous until discontinued starting 06/18/2023 [facility] Comment on above: Continuous until discontinued starting 0 06/18/2023 Lipoprotein a [Moles /volume] in Serum or Plasma [facility] Mitochondria M2 IgG Ab [Units/volume] in Serum [facility] Nuclear Ab [Titer] in Serum [facility] Oxygen therapy [Mini mum Data Set] Initiate Oxygen Therapy Protocol Respiratory Care Routine As Needed until discontinued starting 06/18/2023 [facility] Comment on above: As Needed until discontinued starting Oxygen therapy [Mini mum Data Set] Initiate Oxygen Therapy Protocol Respiratory Care Routine As Needed until discontinued starting 06/18/2023 [facility] Comment on above: As Needed until discontinued starting Patient Education Hemorrhoids (DC) [facility] Work Phone: End: 06-18-2023 , urine POCT , urine POCT Point of Care Testing Routine One Time for 1 Occurrences starting 06/18/2023 until 06/18/2023 [facility] Comment on above: One Time for 1 Occurrences starting 06/01 until 06/18/2023 Surgical Pathology Surgical Path ology Lab Routine Post-menopausal bleeding Inclusion cyst Release Upon Ordering for 1 Occurrences starting 06/18/2023 [facility] Comment on above: Release Upon Ordering for 1 Occurrences starting 06/18/2023 [facility] Immunizations Immunization Date Immunization Notes Care Provider Fa cility 06-05-2024 influenza virus vacc ine, unspecified formulation Raji RINALDI Work Phone: [facility] 06-01-2024 influenza, unspecifi ed formulation JENNIFER MARTINO [facility] 06-05-2023 influenza virus vacc ine, unspecified formulation Stephanie Berger MD PhD Work Phone: [facility] 06-16-2022 influenza, injectabl e, quadrivalent, preservative free Ashley M Hoy Work Phone: [facility] 250 DO Work Phone: 06-16-2022 zoster vaccine recombinant Ashley M Hoy [facility] Phone[facility] Work Phone: 08-01-2021 Pfizer-BioNTech COVI D-19 Vacc 30 MCG/0.3ML Intramuscular Suspension [facility] M Hoy [facility] Work Phone: 06-30-2021 influenza virus vacc ine, unspecified formulation [facility] M Hoy [facility] Work Phone: 06-03-2021 Influenza, injectabl e, Madin [place] Canine Kidney, preservative free, quadrivalent Ashley M Hoy Work [facility]: [facility] 250 DO Work Phone: 01-29-2021 Pfizer-BioNTech COVI D-19 Vacc 30 MCG/0.3ML Intramuscular Suspension Ashley M Hoy Work Phone: [facility] DO Work Phone: 01-08-2021 Pfizer-BioNTech COVI D-19 Vacc 30 MCG/0.3ML Intramuscular Suspension Ashley M Hoy Work Phone: [facility] 2020 influenza, injectabl e, quadrivalent, preservative free Ashley M Hoy Work Phone: [facility] DO Work Phone: 07-23-2018 influenza, injectabl e, quadrivalent, preservative free Ashley M Hoy Work Phone: [facility] 250 DO Work Phone: 07-26-2017 Influenza, injectabl e, Madin [place] Canine Kidney, preservative free, quadrivalent Ashley M Hoy Work Phone: [facility] 250 DO Work Phone: 05-09-2017 pneumococcal polysaccharide vaccine, 23 valent Ashley M Hoy Work Phone: [facility] 250 DO Work Phone: 07-03-2015 influenza, seasonal, injectable, preservative free Ashley M Hoy Work Phone: [facility] Work Phone: 06-15-2014 influenza, seasonal, injectable Ashley M Hoy Work Phone: [facility] 250 DO Work Phone: 07-29-2009 novel influenza-H1N1 -09, preservative-free, injectable Ashley M Hoy Work Phone: [facility] [employer] 250 DO Work Phone: Payers Date Payer Category Payer Self-pay [id number] [phone] [id number] 2022 [facility] [id number] 2022 [facility] [id number] 2022 Unknown 2019 Unknown [employer] [place] xxxxxxxxxxxxxxx 2019-Present [address] [place] [address] xxxxxxxxxxxxxxx [id number] 1964 Unknown [id number] 2.16.840.1.731363.3.579.2.5 93 1964 Unknown [id number] 2.16.840.1.765076.3.579.2.5 93 1964 Unknown [id number] 2.16.840.1.277930.3.579.2.5 93 1964 Unknown [id number] 2.16.840.1.334828.3.579.2.5 93 1964 Unknown [id number] 2.16.840.1.004691.3.579.2.5 93 1964 Unknown [id number] 2.16.840.1.338129.3.579.2.1 73 1964 Unknown [id number] 2.16.840.1.913513.3.579.2.1 75 1964 Unknown [id number] 2.16.840.1.667549.3.579.2.1 286 1964 Unknown [id number] 2.16.840.1.005519.3.579.2.1 286 1964 Unknown [id number] 2.16.840.1.997069.3.579.2.1 286 1964 Unknown [id number] 2.16.840.1.109012.3.579.2.1 286 1964 Unknown [id number] 2.16.840.1.188304.3.579.2.1 286 1964 Unknown [id number] 2.16.840.1.112667.3.579.2.1 286 1964 Unknown [id number] 2.16.840.1.955471.3.579.2.1 286 1964 Unknown [id number] 2.16.840.1.599928.3.579.2.7 27 1964 Unknown [id number] 2.16.840.1.393480.3.579.2.7 27 1964 Unknown [id number] 2.16.840.1.676838.3.579.2.7 27 1964 Unknown [id number] 2.16.840.1.852290.3.579.2.1 244 1964 Unknown [id number] 2.16.840.1.392006.3.579.2.1 244 1964 Unknown [id number] 2.16.840.1.057039.3.579.2.1 286 1964 Unknown [id number] 2.16.840.1.334143.3.579.2.1 286 1964 Unknown [id number] 2.16.840.1.842868.3.579.2.1 259 1964 Unknown [id number] 2.16.840.1.905698.3.579.2.1 259 1964 Unknown [id number] 2.16.840.1.120677.3.579.2.1 259 1964 Unknown [id number] 2.16.840.1.136619.3.579.2.1 259 1964 Unknown [id number] 2.16.840.1.406032.3.579.2.1 259 1964 Unknown [id number] 2.16.840.1.222413.3.579.2.1 259 1964 Unknown [id number] 2.16.840.1.089608.3.579.2.1 259 1964 Unknown [id number] 2.16.840.1.351079.3.579.2.1 259 1959 Unknown [id number] 1959 Unknown [id number] Unknown [id number] 2.16.840.1.316197.3.579.2.5 31 Social History Date Type Detail Facility Start: 08-19-2019 End: 09-13-2023 Tobacco smoking status NHIS Never smoker [place], [place] Start: 08-19-2019 End: 06-23-2025 Alcohol intake Ex-drinker (finding) [facility] Start: 1965 Sex Assigned At Not on file [place] Start: 06-18-2023 End: 06-23-2025 No alcohol use No alcohol use [facility] 250 DO Work Phone: Start: 08-19-2019 End: 09-13-2023 Tobacco use and exposure Smokeless tobacco non-user [facility] Work Phone: Start: 06-18-2023 End: 06-23-2025 Sex Assigned At Female [facility] Start: 1965 Sex Assigned At Female [facility] Patient Health Questionnaire 9 item (PHQ-9) total score [Reported] 0 [facility] Start: 08-14-2023 End: 09-05-2024 Alcohol intake Lifetime non-drinker (finding) [facility] Work Phone: Start: 08-04-2023 End: 09-05-2024 Exposure to SARS-CoV-2 (event) Not sure [facility] Start: 08-19-2024 Sex Female (finding) [facility] Start: 01-17-2024 End: 02-29-2024 Alcoholic beverage intake Current non-drinker of alcohol (finding) [facility] Start: 09-12-2023 Gender identity Identifies as female gender (finding) [facility] NEGATED: Highlighted row Denies Caffeine use Denies Caffeine use -[facility] 250 DO Work Phone: Medical Equipment Procedure [...] Tissue Alloderm Nonmesh 2x4cm - Sna - [id number] Start: 09-06-2017 Lens Iol Ultrase rt 17.0d - [id number] - [id number] Start: 11-14-2018 Sinus Implant Propel Mini - Sna - [id number] Start: 01-03-2018 Sinus Implant Propel - Sna - [id number] Start: 01-03-2018 Acrysofiq Restor [id number] Start: 11-05-2018 Goals Date Patient Goal Desired Activity /State Functional Status Date Assessment Result Facility 08-05-2024 Functional Status N/A [facility] 04-10-2024 Functional Status N/A [facility] 06-02-2022 Functional Status N/A [facility] Clinical Notes 06-02-2022 to 06-23-2025 Jr. Bridgett [...] requiring urgent evaluation. documented in this encounter [facility] 06-02-2025 History of Present illness Narrative [...] IV contrast MRI RT wrist w/o at [facility]. Orbits if needed. Please contact patient to [...] requiring urgent evaluation. documented in this encounter [facility] 05-27-2025 History of Present illness Narrative [facility] Patient: Jose Alberto Saleem [address], [address] , Sex: 1965, Male [place] [id number] Height: 160 cm Ref Phys: Byrd fax [...] Delta-0 (ms) Dist (cm) Davis (m/s) Norm Dvais (m/s) Left Median [facility] Mixed (Wrist) [...] Doub=doublet; Fasc=fasciculation; FFE=full for effort; Fib=fibrillation; Myokym=myokymia; Reynolds=myotonic potential; N,0=normal; NR=no response; Polyph=polyphasia; Pos=positive [sharp] [...] or mononeuritis multiplex. Rae Louie M.D. Diplomate, [place] [employer] of Psychiatry and Neurology (neurology, epilepsy, sleep medicine) Diplomate, [place] Board of Clinical Neurophysiology Diplomate, [place] Board of Preventive Medicine (clinical informatics) . documented in this encounter [facility] 05-19-2025 Note Called patient today to [...] dosage depending on her snack, verifies understanding. [facility] 05-15-2025 History of Present illness Narrative Images [...] her hand tightly in a fist. 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 She has had prior carpal [...] requiring urgent evaluation. Visit was preformed using [facility]-air[employer] pilot speech recognition. documented in this encounter [facility] 05-14-2025 Note Called patient to fo [...] Rivera in the clinic and Dr. Watson. [facility] 05-08-2025 Note Attestation signed by Chauncey Kimble MD at 05/08/2025 4:15 PM I personally saw the patient with the resident/fellow on the same day of service. I discussed the findings and therapeutic plan with the resident/fellow and with the patient. I agree with the documentation. [facility] Gastroenterology Follow-Up Patient Visit CHIEF [...] B12/Folate/Iron studies: Lab Results Component Value Date [id number] 1,862 (H) 02/27/2024 FOLATE 39.0 02/27/2024 IRON [...] 2.02 02/27/2024 Pancreatiti (more content not included)... [facility] 01-09-2025 Note Attestation signed by Chauncey Kimble MD at 01/10/2025 8:31 AM I personally saw the patient with the resident/fellow on the same day of service. I discussed the findings and therapeutic plan with the resident/fellow and with the patient. I agree with the documentation. [facility] Gastroenterology New Patient Visit - History & Physical CHIEF COMPLAINT Chief Complaint Patient presents with Follow-up MRI follow up and seen at [facility] and in hospital for 1 day. [...] on for which she was admitted at [facility] and was management symptomatically. Patient reported since [...] Plavix, baby aspirin, amlodipine, and a PRN [place] for pain. Of note, she has a [...] which were ordered at the outside facility ([facility]) and remain pending. A HIDA scan may also be pursued for further evaluation. She reports extreme fatigue post-hospitalization, interfering with her work and daily function. She prefers to avoid surgical intervention unless necessary and is open to advanced enteroscopy (e.g., device-assisted ERCP) at tertiary centers ([facility] or [facility]) as a less invasive alternative to laparoscopic-assisted ERCP. Plan includes requesting complete LFTs and pancreatic (more content not included)... [facility] 12-12-2024 Note Attestation signed by Chauncey Kimble MD at 12/12/2024 3:31 PM I personally saw the patient with the resident/fellow on the same day of service. I discussed the findings and therapeutic plan with the resident/fellow and with the patient. I agree with the documentation. [facility] Gastroenterology New Patient Visit [...] on for which she was admitted at [facility] and was management symptomatically. Patient reported since [...] healthy appearing mucosa. This was traversed. The [id number] limb was characterized by healthy appearing mucosa. [...] Angina pectoris Atherosclerosis of coronary artery of [place] heart without angina pectoris Cellulitis of right [...] Mother Gretta Hyperlipidemia Father Alexander Hyperlipidemia Brother [place] Heart attack Brother Ray SOCIAL HISTORY: Social History Tobacco Use Smoking status: Never Smokeless tobacco: Never Vaping Use Vaping status: Never Used Substance Use Topics Alcohol use: Never Drug use: Never ALLERGIES: Baclofen; Latex, natural rubber; Penicillins; Sulfa (sulfonamide antibiotics); Rosuvastatin; Sulfamethoxazole-trimethoprim; Fenofibrate; Fenofibrate micronized; Fluvastatin; Levofloxacin; Phenazopyridine; Simvastatin; Trimethoprim; and Tobramycin Current Med (more content not included)... [facility] 11-26-2024 History of Present illness Narrative Images [...] AND FELT A POP 10/08/24- [place] CAMPUS; SENT TO ER XRAYS XRAY RT WRIST TODAY EPIC 11/26/24 XRAY [facility] RT FOREARM 10/11/24 SPLINT DOING WELL [...] xray 10/11/24 (R) Forearm: no acute fracture [facility] Results - Imaging: - X-ray of [...] requiring urgent evaluation. documented in this encounter [facility] 09-05-2024 History of Present illness Narrative Subjective Jose Alberto Saleem is a 59 y.o. female Chief Complaint Follow-up 59-year-old female returns following acute coronary syndrome, with subsequent two-vessel intervention of the vein graft to the diagonal branch with long 3.5 x 38 mm Ray stent and [place] distal circumflex for in-stent restenosis with 3 x 18 mm Marion stent. LV function is preserved. 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 Patient is otherwise stable [...] Atherosclerosis of coronary artery bypass graft of [place] heart without angina pectoris 2. S/P PTCA [...] discussion and plan. documented in this encounter [facility] Work Phone: 09-05-2024 Instructions Jasmyne Salinas [...] be sent through Care Everywhere.Heart Healthy Diet (Korean)documented in this encounter [facility] Work Phone: 08-19-2024 Evaluation note Diagnosis Onset Date Resolution Atypical chest pain acute Novem rocky 2023 11:18pm [facility] Work Phone: 1(800) 117-573011-13-2024 History of Present illness Narrative* Celso Garibay [...] has a history of remote CABG, remote DC, remote PCI's before and after her CABG [...] Assessment/Plan 1. Atherosclerosis of coronary artery of [place] heart without angina pectoris, unspecified vessel or lesion type Follow Up In Cardiology 2. History of coronary artery bypass graft Follow Up In Cardiology 3. Essential hypertension, benign 4. Hyperlipidemia, unspecified hyperlipidemia type 5. Acute pancreatitis, unspecified complication status, unspecified pancreatitis type ([facility]) Scribe Attestation By signing my name [...] exam, discussion and plan. [facility] Phone: 1(363) 288-974911-13-2024 Instructions* Patient Instructions* Bettie Ugalde LPN - [...] Provided instructions on exercise. [facility] Phone: 1(530) 652-227811-05-2024 Hospital Discharge instructions Patient Education 08/05/2024 12:20:10 Kidney Stones, Qqzt-zy-Uqpc Kidney Stones Kidney stones are rock-like masses [...] Follow these instructions at home: Medicines Take shts-zvb-jppwhls and prescription medicines only as told by [...] provider. Document Revised: 05/11/2023 Document Reviewed: 05/11/2023 [employer] Patient Education 2023 [employer]. Follow Up Care 06/06/2024 11:10:21 With:JENNIFER MARTINO PA-C, CARLOS Address: When:1 year [facility] 11-05-2024 NotePatient Education Urology Kidney Stones Kidney [...] these instructions at home: Medicines ??? Take twjp-vvi-tergpdc and prescription medicines only as told by [...] provider. Document Revised: 05/11/2023 Document Reviewed: 05/11/2023 [email or web address] Patient Education ? 2023 [employer].[facility] 04-10-2024 Hospital Discharge instructions Patient Education 04/10/2024 16:08:23 Kidney Stones, Jkeo-xd-Qobo Kidney Stones Kidney stones are rock-like masses [...] Follow these instructions at home: Medicines Take eors-ehh-hmvrfzw and prescription medicines only as told by [...] provider. Document Revised: 05/22/2022 Document Reviewed: 05/22/2022 [employer] Patient Education 2022 [employer]. Follow Up Care 03/10/2024 08:31:33 With:SALENA REDDY JENNIFER López, URL Address: [address] [place] [address] When:3 months [facility] 07-11-2024 NotePatient Education Urology Kidney [...] these instructions at home: Medicines ? Take fgkr-cyj-dccjiyq and prescription medicines only as told by [...] provider. Document Revised: 05/22/2022 Document Reviewed: 05/22/2022 [employer] Patient Education ? 2022 [employer].[facility] 02-29-2024 Instructions* Pre-Procedure Instructions - Aracely Boyd RN - 02/29/2024 10:00 AM EDT Your surgery/procedure is scheduled at [facility] on 03/06/2024 at 1130 Arrival Time 0930 [facility] Address: [address] [place] [address] in P1 Parking lot located on [facility]. Report to the Entrance B. Check in at the information desk the surgery. The waiting room located on the second floor. If you have any questions prior to surgery, please call Pre-Admission Clinic at [phone] between 7:30 am and 4:30 pm Sunday through Sunday. If you have questions the morning of surgery, please call the Pre-op Department at [phone]. Notify your SURGEON if you develop any [...] would like to schedule [facility], please call [address] [place] [address] ([phone]). Do not use lotions, creams, powders, perfume, [...] RESPONSIBILITIES As a patient at [facility], you have the right to: Receive medical care and be informed of who is taking care of you Be treated with dignity and respect Have a family member/school admissions representative of choice and your physician notified of your admission Receive information and actively participate in decisions about your care and treatment Refuse care, treatment and services Decide who may provide your support and speak for you Access hinduism and spiritual services Participate in ethical issues [...] of hospital charges and payment methods Patient/patient school admissions representative responsibilities are to: Provide information about [...] RESPONSIBILITIES As a patient at [facility], you have the right to: Receive medical care and be informed of who is taking care of you Be treated with dignity and respect Have a family member/school admissions representative of choice and your physician notified of your admission Receive information and actively participate in decisions about your care and treatment Refuse care, treatment and services Decide who may provide your support and speak for you Access hinduism and spiritual services Participate in ethical issues [...] of hospital charges and payment methods Patient/patient school admissions representative responsibilities are to: Provide information about [...] Control department if you have any questions. [facility]05-31-2024 Miscellaneous Notes* Pre-Procedure Instructions - Aracely Boyd RN - 02/29/2024 10:00 AM EDT Your surgery/procedure is scheduled at [facility] on 03/06/2024 at 1130 Arrival Time 0930 [facility] Address: [address] [place] [address] in Parking lot located on [facility]. Report to the Entrance B. Check in at the information desk the surgery. The waiting room located on the second floor. If you have any questions prior to surgery, please call Pre-Admission Clinic at [phone] between 7:30 am and 4:30 pm Sunday through Sunday. If you have questions the morning of surgery, please call the Pre-op Department at [phone]. Notify your SURGEON if you develop any [...] would like to schedule therapy at a [facility] facility, please call [phone] ([phone]). Do not use lotions, creams, powders, perfume, [...] RESPONSIBILITIES As a patient at [facility], you have the right to: Receive medical care and be informed of who is taking care of you Be treated with dignity and respect Have a family member/school admissions representative of choice and your physician notified of your admission Receive information and actively participate in decisions about your care and treatment Refuse care, treatment and services Decide who may provide your support and speak for you Access hinduism and spiritual services Participate in ethical issues [...] of hospital charges and payment methods Patient/patient school admissions representative responsibilities are to: Provide information about [...] RESPONSIBILITIES As a patient at [facility], you have the right to: Receive medical care and be informed of who is taking care of you Be treated with dignity and respect Have a family member/school admissions representative of choice and your physician notified of your admission Receive information and actively participate in decisions about your care and treatment Refuse care, treatment and services Decide who may provide your support and speak for you Access hinduism and spiritual services Participate in ethical issues [...] of hospital charges and payment methods Patient/patient school admissions representative responsibilities are to: Provide information about [...] you have any questions. [facility] History of Present illness Narrative* Stephanie Berger MD PhD - 01/17/2024 4:00 PM EDT [facility] [address] [place] [id number] SUBJECTIVE: Patient ID (1965): Jose Alberto Saleem [...] Hypertension Kidney stone Kidney stones Myocardial infarction ([facility]) 2014 5 stents Visual impairment Past Surgical History: Procedure Laterality Date APPENDECTOMY BIOPSY SALIVARY GLAND FS N/A 09/06/2017 Performed by Stephanie Berger MD at [facility] CARPAL TUNNEL RELEASE right CHOLECYSTECTOMY CORONARY ARTERY BYPASS GRAFT x4 ENDOSCOPIC FUNCTIONAL SINUS SURGERY Bilateral 01/03/2018 Performed by Stephanie Berger MD at [facility] ENDOSCOPIC SURGERY SINUS Bilateral 01/03/2018 Performed by Stephanie Berger MD at [facility] EXCISION MASS UPPER EXTREMITY Right 11/19/2019 Performed by Stephanie Morse DO at [facility] HERNIA REPAIR LAPAROSCOPIC GASTRIC BYPASS LITHOTRIPSY OVARIAN CYST REMOVAL PHACO KELMAN I IMPLANT INTRAOCULAR LENS Left 11/14/2018 Performed by Nisha Stoll MD at [facility] PHACO KELMAN I IMPLANT INTRAOCULAR LENS Right 11/05/2018 Performed by Nisha Stoll MD at [facility] RELEASE CARPAL TUNNEL Right 01/11/2022 Performed by Stephanie Morse DO at [facility] RELEASE CARPAL TUNNEL [place] CPT 10776 Left 07/19/2022 Performed by Stephanie Morse DO at [facility] RESECTION SUBMUCOSAL Bilateral 09/06/2017 Performed by Stephanie Berger MD at [facility] SEPTOPLASTY SEPTOPLASTY N/A 09/06/2017 Performed by Stephanie Berger MD at [facility] STENT INSERTION LACRIMAL DUCT EYE Right 09/06/2017 Performed by Stephanie Berger MD at [facility] URETERAL STENT PLACEMENT Family History [...] tablets (6.25 mg total) by mouth daily. vbxivfiz-zazv-OI-calcium &mins (THERAGRAN-M) 9 mg iron-400 mcg tablet [...] day. (Patient not taking:Reported on 01/17/2024) sod fhapa-byiyck-bvzgsa bottle (NEILMED SINUS RINSE COMPLETE) packet with [...] this chart were generated using voice recognition M*[employer] dictation software. Although every effort was made to ensure the accuracy of this automated cook dinner, some errors in cook dinner may have occurred. [facility] History of Present illness Narrative* Celso Garibay, [...] has a history of remote CABG, remote DC, remote PCI's before and after her CABG [...] Assessment/Plan 1. Atherosclerosis of coronary artery of [place] heart without angina pectoris, unspecified vessel or lesion type 2. History of coronary artery bypass graft 3. Ischemic cardiomyopathy 4. Essential hypertension, benign [facility] Work Phone: 1(741) 925-747111-14-2023 Instructions* Patient Instructions* Ej Braswell MA - [...] time of your visit. [facility] Work Phone: 1(434) 800-806509-18-2023 Hospital Discharge instructions* Discharge Instructions* Lissa Ocasio [...] call if excessive. Call the office at [phone] ([place]) [phone] ([place]) for an appointment in 2 weeks. [facility] of Present illness Narrative* Sejal Pro [...] with Dr. Engel. [facility] Evaluation note* Encounter Date Diagnosis Assessment Notes Treatment Notes Treatment Clinical Notes Nov, Elevated liver function tests (ICD-10 - R94.5) [employer] Other 02-02-[facility] Evaluation note* Encounter Date Diagnosis Assessment Notes Treatment Notes Treatment Clinical Notes Oct, Abdominal pain (ICD-10 - R10.9) Oct, Common bile duct dilatation (ICD-10 - K83.8) Oct, Elevated liver enzymes (ICD-10 - R74.8) Oct, Constipation (ICD-10 - K59.00) Colonoscopy Start Miralax daily after colonoscopy. Titration dosing discussed with patient. Oct, Colon cancer screening (ICD-10 - Z12.11) [employer] Other 01-04-2023 NotePROGRESS NOTE NOTE DATE: 10/04/2022 CHIEF COMPLAINT: Abdominal pain. HISTORY OF PRESENT ILLNESS: The patient is a 57-year-old female with a history of dyslipidemia and gastric bypass surgery, who has been having increasing abdominal pain and flank pain. She was seen yesterday at the [facility] for epigastric and upper abdominal [...] Prophylaxis: Lovenox. DISPOSITION: Home when medically stable.[id number] Hospital Discharge instructions Patient Education 06/02/2022 08:51:52 Kidney Stones, Jhpz-uc-Wzgr Kidney Stones Kidney stones are rock-like masses [...] Follow these instructions at home: Medicines Take khul-tua-kuboiqg and prescription medicines only as told by [...] Document Reviewed: 02/03/2020 Elsevier Patient Education 2020 [employer] Follow Up Care 05/27/2021 09:10:08 With:LORENA STRAUSS, Santiago Guzman, URL Address: [address] [place] [address]- When: Unknown [facility] evaluation + Plan note Future Appointments Appointment Date:06/01/2023 08:00:00 AM Scheduled Provider:Santiago CARRILLO MD Location:[facility] Appointment Type:URO Office Visit [facility] evaluation + Plan note Future Appointments Appointment Date:04/10/2024 03:00:00 PM Scheduled Provider:JENNIFER MARTINO PA-C Location:[facility] Appointment Type:URO Office Visit [facility] evaluation + Plan note Future Scheduled Tests Radiology* XR Abdomen 1 View 08/05/25 [facility] evaluation note* Diagnosis Women's annual routine gynecological examination documented in this encounter [employer] Work Phone: evalbvvdia noteNo assessment information available [facility] Work Phone: Evaluation noteNo InformationNort [employer] Other Evaluation note* Diagnosis Post-menopausal bleeding Postmenopausal bleeding Inclusion cyst Sebaceous cyst documented in this encounter [facility] ActitoEvaluation note* Diagnosis Atherosclerosis of coronary artery of [place] heart without angina pectoris, unspecified vessel or lesion type 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 Ischemic cardiomyopathy Other specified forms of chronic ischemic heart disease Essential hypertension, benign documented in this encounter [facility] Work Phone: Evaluation note* Diagnosis Atherosclerosis of coronary artery of [place] heart without angina pectoris, unspecified vessel or lesion type 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 Essential hypertension, benign Hyperlipidemia, unspecified hyperlipidemia type Acute pancreatitis, unspecified complication status, unspecified pancreatitis type ([facility]) documented in this encounter [facility] Work Phone: Evaluation note* Diagnosis Atherosclerosis of coronary artery bypass graft of [place] heart without angina pectoris S/P PTCA (percutaneous transluminal coronary angioplasty) Postsurgical percutaneous transluminal coronary angioplasty status 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 Ischemic cardiomyopathy Other specified forms of chronic ischemic heart disease Essential hypertension Unspecified essential hypertension Mixed hyperlipidemia BMI 30.0-30.9,adult Statin intolerance documented in this encounter [facility] Work Phone: Evaluation note* Diagnosis Dry nose- Primary Other diseases of nasal cavity and sinuses Xerostomia Disturbance of salivary secretion Allergic rhinitis, unspecified seasonality, unspecified trigger documented [facility] this encounter [facility] Diagnosis Xerostomia- Primary Disturbance of salivary secretion documented in this [facility] Diagnosis Acute pain of right wrist- Primary Tendonitis of wrist, right documented [facility] encounter [facility] HealthcareEvaluation note* Diagnosis Right wrist pain- Primary Pain in joint, forearm Arm weakness Other musculoskeletal symptoms referable to limbs Numbness Disturbance of skin sensation Arm pain, right Pain in soft tissues of limb Ulnar neuropathy of right upper extremity documented in this encounter [facility] HealthcareEvaluation note* Diagnosis Numbness- Primary Disturbance [...] HealthcareHistory and physical note Author Evert Bruno [facility] November 01, 2022 12:40pm Note Date/Time November 01, 2022 1 2:40pm [facility] [address] [place] [address] Gastroenterology H&P Signed Patient: Jose Alberto Saleem MR#: [id number] : 1965 Acct:[id number] Age/Sex: 57 / F Adm Date: 3 Loc: Room: Type: [facility] Attending Dr: Evert Bruno MD [...] by Evert Bruno MD> 11/01/[address] [facility] Work Phone: History and physical note Author Evert Bruno [facility] November 02, 2022 2:14pm Note Date/Time November 02, 2022 2 :14pm [facility] [address] [place] [address] Gastroenterology H&P Signed Patient: Jose Alberto Saleem MR#: [id number] : 1965 Acct:[id number] Age/Sex: 57 / F Adm Date: 3 Loc: Room: Type: [facility] Attending Dr: Evert Bruno MD [...] by Evert Bruno MD> 11/02/[address] 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 nutritional yeast esophogus Surgical History CABG remote history Surgical History gastric bypass 2018 Surgical History multiple kidney stones removed Surgical History appendectomy Surgical History cyst on ovarian removed Surgical History bilateral carpe tunnel surgery 2021 Surgical History cholecystectomy Hospitalization History see surgical hx [employer] Other Hospital course Narrative No data available for this section [facility] Hospital Discharge instructions Additional Instructions DISCHARGE INSTRUCTIONS [...] NOT operate machinery such as power tools, [employer] mowers, snow blowers, sewing machines, etc. for [...] problems. -Follow up with PCP. -Office number [phone]. [facility] Work Phone: Hospital Discharge instructions Additional [...] NOT operate machinery such as power tools, [employer] mowers, snow blowers, sewing machines, etc. for [...] problems. -Follow up with PCP. -Office number [phone]. [facility] Work Phone: Hospital Discharge instructions No data available for this section [facility] InstructionsNot on filedocumented in this encounter [facility] SystemInstructionsNot on filedocumented in this encounter [facility] SystemInstructionsNot on filedocumented in this encounter [facility] SystemProgress note No data available for this section [facility] reason for referral (narrative)* Consultation (Routine) - Authorized Specialty Diagnoses / Procedures Referred By Contac t Referred To Contact Cardiology Diagnoses Atherosclerosis of coronary artery of [place] heart without angina pectoris, unspecified vessel or lesion type History of coronary artery bypass graft Procedures Follow Up In Cardiology Celso Garibay, [address] [facility] [place] [address] Celso Garibay DO [address] [facility], [facility] [address] [place] [address] Referral ID Status Reason Start Date Expiration Date V isits Requested Visits Authorized [id number] Authorized 08/14/2023 08/13/2024 1 1 [facility] Work Phone: Reason for visit Narrative* Other Medical (Routine) - Closed Specialty Diagnoses / Procedures Referred By Manfred flynn Referred To Contact Neurology Diagnoses Arm weakness Numbness Arm pain, right Ulnar neuropathy of right upper extremity Procedures EMG AND NERVE CONDUCTION STUDY Raji Byrd, [address] [place] [address] Phone: tel: fax: Rae Louie MD [address] [address] Phone: tel: fax: Referral ID Status Reason Start Date Expiration Date Visits Re quested Visits Authorized [id number] Closed 05/15/2025 11/11/2025 1 1 [facility] Healthcare Summary Purpose Family History [...] Documents on File Type Date Recorded 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 * [employer] is class I * Recommendations, [...] She has a history of prior inferior DC, prior PCI with subsequent three-vessel CABG and [...] She has a history of prior inferior DC, prior PCI with subsequent three-vessel CABG and [...] AUTHOR AUTHOR'S ORGANIZ ATION 03/26/2018 [facility] DATE CREATED AUTHOR AUTHOR'S ORGANIZ ATION 08/02/2022 [facility] dical Specialist DATE CREATED AUTHOR AUTHOR'S ORGANIZ ATION 08/17/2022 [facility] DATE CREATED AUTHOR AUTHOR'S ORGANIZ ATION 10/17/2022 [facility] DATE CREATED AUTHOR AUTHOR'S ORGANIZ ATION 06/23/2023 [facility] DATE CREATED AUTHOR AUTHOR'S ORGANIZ ATION 07/16/[address] [facility] DATE CREATED AUTHOR AUTHOR'S ORGANIZ ATION 01/19/2024 [facility] DATE CREATED AUTHOR AUTHOR'S ORGANIZ ATION 03/07/2024 [facility] DATE CREATED AUTHOR AUTHOR'S ORGANIZ ATION 08/06/2024 [facility] DATE CREATED AUTHOR AUTHOR'S ORGANIZ ATION 09/15/2024 [facility] DATE CREATED AUTHOR AUTHOR'S ORGANIZ ATION 10/16/2024 [facility] DATE CREATED AUTHOR AUTHOR'S ORGANIZ ATION 01/22/2025 [facility] DATE CREATED AUTHOR AUTHOR'S ORGANIZ ATION 06/15/2025 [facility] [facility] DATE CREATED AUTHOR AUTHOR'S ORGANIZ ATION 06/24/2025 [facility] EPIC Care Teams (unrecognized sec [...] Active Evert Bruno MD Attending Provider Active Multi Disciplined Language Analyst Relationship Specialty Start Date End Date Ashley Grigsby MD [address] [place] [address] PCP - General Family Medicine 08/19/19 Multi Disciplined Language Analyst Relationship Specialty Start Date End Date Ashley Grigsby MD [address] [place] [address] PCP - General Family Medicine 08/19/19 Multi Disciplined Language Analyst Relationship Specialty Start Date End Date Ashley Grigsby MD [address] [place] [address] PCP - General 08/17/21 Multi Disciplined Language Analyst Relationship Specialty Start Date End Date Ashley Grigsby MD [address] [place] [address] PCP - General 08/17/21 Multi Disciplined Language Analyst Relationship Specialty Start Date End Date Ashley Grigsby MD [address] [place] [address] PCP - General 08/17/21 Anita Hammonds, show host/hostessSpiral Winding Machine Helper 08/22/24 Multi Disciplined Language Analyst Relationship Specialty Start Date End Date Ashley Grigsby MD [address] [place] [address] PCP - General 02/22/17 Multi Disciplined Language Analyst Relationship Specialty Start Date End Date Ashley Grigsby MD [address] [facility] [place] [address] PCP - General 02/22/17 Multi Disciplined Language Analyst Relationship Specialty Start Date End Date Ashley Grigsby MD [address] [place] [address] PCP - General 02/22/17 Multi Disciplined Language Analyst Relationship Specialty Start Date End Date Ashley Grigsby MD [address] [facility] [place] [address] PCP - General Family Medicine 09/13/23 Multi Disciplined Language Analyst Relationship Specialty Start Date End Date Ashley Grigsby MD [address] [facility] [place] [address] PCP - General Family Medicine 09/13/23 Multi Disciplined Language Analyst Relationship Specialty Start Date End Date Ashley Grigsby MD [address] [facility] [place] [address] PCP - General Family Medicine 02/13/25 Multi Disciplined Language Analyst Relationship Specialty Start Date End Date Ashley Grigsby MD [address] [facility] [place] [address] PCP - General Family Medicine 02/13/25 Multi Disciplined Language Analyst Relationship Specialty Start Date End Date Ashley Grigsby MD [address] [facility] [place] [address] PCP - General Family Medicine 02/13/25 Multi Disciplined Language Analyst Relationship Specialty Start Date End Date Ashley Grigsby MD [address] [facility] [place] [address] PCP - General Family Medicine 02/13/25 Multi Disciplined Language Analyst Relationship Specialty Start Date End Date Ashley Grigsby MD [address] [facility] [place] [address] PCP - General Family Medicine 02/13/25 Multi Disciplined Language Analyst Relationship Specialty Start Date End Date Ashley Grigsby MD [address] [facility] [place] [address] PCP - General Family Medicine 02/13/25 REASON FOR VISIT (unrecogniz ed section and content) Specialty Diagnoses / Procedures Referred By Manfred flynn Referred To Contact Diagnoses Post-menopausal bleeding Inclusion cyst Post-menopausal bleeding [N95.0] Inclusion cyst [L72.0] Procedures NV HYSTEROSCOPY BX ENDOMETRIUM&/POLYPC W/WO D&C NV DESTRUCTION BENIGN LESIONS UP TO 14 DILATATION AND CURETTAGE HYSTEROSCOPY-REMOVAL OF INCLUSION CYST Gaby Phillips, DO [address] [place] [address] [facility] [address] [place] [address] Referral ID Status Reason Start Date Expiration Date Visits Re quested Visits Authorized [id number] 1 1 Reason Comments Annual Exam 1yr Specialty Diagnoses / Procedures Referred By Manfred flynn Referred To Contact Cardiology Diagnoses Atherosclerosis of coronary artery of [place] heart without angina pectoris, unspecified vessel or lesion type History of coronary artery bypass graft Procedures Follow Up In Cardiology Celso Garibay, DO [address] [facility] 2, [address] [address] Phone: tel: fax: Celso Garibay, DO [address] [facility] 2, [facility] [address] [place] [address] Phone: tel: fax: Referral ID Status Reason Start Date Expiration Date V isits Requested Visits Authorized [id number] Authorized 08/14/2023 08/13/2024 1 1 Reason Comments Follow-up [facility] discharge 08/22 Reason [...] BE BASED ON THE PRIMARY CLINICAL RECORDS. [facility]. provides no warranty or guarantee of the accuracy or completeness of information in this document.
[2025-07-06] MEDS: PANTOPRAZOLE SODIUM 40 MG VIAL IV (23:04)
[2025-07-06] MEDS: ENOXAPARIN SODIUM 40 MG/0.4 ML SYRINGE SUBQ (23:04)
[2025-07-06] MEDS: 0.9 % SODIUM CHLORIDE 1,000 ML 125 ML IV (23:04)
[2025-07-07] VITALS (15 sets, daily range): BP systolic 127–148; BP diastolic 65–85; PULSE 61–84; TEMP 36.5–36.7; O2SAT 93–96
[2025-07-07 05:35] LABS: Hematocrit 41.5 % (36.0-48.0); Hemoglobin 13.4 g/dL (12.0-16.0); Immature Granulocytes Abs Auto 0.01 10^3/uL (0.00-0.03); Immature Granulocytes Pct Auto 0.2 % (0.0-0.5); Lymphocytes Absolute Auto 2.1 10^3/uL (1.2-3.8); Mean Corpuscular HGB Conc 32.3 g/dL (29.9-35.2); Mean Corpuscular Hemoglobin 29.5 pg (26.7-34.0); Mean Corpuscular Volume 91.2 fL (81.0-99.0); Platelet Count 185 10^3/uL (150-450); Red Blood Count 4.55 10^6/uL (4.20-5.40); White Blood Count 5.5 10^3/uL (4.0-11.0)
[2025-07-07 05:55] LABS: Alanine Aminotransferase 28 U/L (14-59); Albumin Globulin Ratio 1.1; Albumin Level 3.1 g/dL (3.4-5.0); Alkaline Phosphatase 97 U/L (46-116); Anion Gap 6.5; Aspartate Amino Transferase 16 U/L (15-37); Blood Urea Nitrogen 20.0 mg/dL (7.0-18.0); Calcium 8.6 mg/dL (8.5-10.1); Carbon Dioxide 32.8 mmol/L (21.0-32.0); Chloride 106 mmol/L (98-107); Cholesterol 207 mg/dL (<=200); Estimated GFR (African America >60 (>=60 mL/min/1.73m^2); Estimated GFR (Non-African Ame >60 (>=60 mL/min/1.73m^2); Globulin 2.9 g/dL; Glucose 97 mg/dL (74-106); HDL Cholesterol 41 mg/dL (40-60); Lipase 100.0 U/L (16.0-77.0); Magnesium 2.3 mg/dL (1.8-2.4); Potassium 4.3 mmol/L (3.5-5.1); Sodium 141 mmol/L (136-145); Total Protein 6.0 g/dL (6.4-8.2); Triglycerides 232 mg/dL (<=150); VLDL CHOLESTEROL 46.4 mg/dL
[2025-07-07] MEDS: 0.9 % SODIUM CHLORIDE 1,000 ML 125 ML IV (06:42)
--- NOTE | 2025-07-07 07:00 | ECG_ITS ---
[facility] Test Date: 2025-07-07 Pat Name: JOSE ALBERTO SALEEM Department: Room: 2041 Gender: Female Used Car Renovator: : 1965 Requested By: [id number] Order Number: [id number] Reading MD: RANDOLPH ALLEN Measurements Intervals [place] Rate: 58 P: 77 LA: 156 QRS: -50 QRSD: 100 T: -15 QT: 457 QTc: 452 Interpretive Statements SINUS BRADYCARDIA LEFT ANTERIOR FASCICULAR BLOCK [QRS AXIS <= -45, QR IN I, RS IN II] POSSIBLE ANTERIOR MYOCARDIAL INFARCTION [30 ms Q WAVE IN V3/V4, OR R < 0.2 mV IN V4], OF INDETERMINATE AGE INTERPRETATION BASED ON A DEFAULT AGE OF 40 YEARS Compared to ECG 09/30/2024 17:38:42 Left anterior fascicular block now present Sinus rhythm no longer present Left-axis deviation no longer present Myocardial infarct finding still present Electronically Signed On 07-07-2025 12:58:03 EDT by RANDOLPH ALLEN
[2025-07-07] MEDS: PANTOPRAZOLE SODIUM 40 MG VIAL IV ×2 (09:12→21:25)
[2025-07-07] MEDS: ACETAMINOPHEN 325 MG TABLET 650 MG PO ×2 (09:13→21:31)
--- NOTE | 2025-07-07 10:15 | CM.NOTE ---
Rounds made with Dr. Wang, discussed with pt plan of care and reason for admission. Pt placed in inpatient status.
--- NOTE | 2025-07-07 13:32 | PM.HP ---
HPI H&P: HPI History of Present Illness Chief complaint: Abnormal Labs, ABDOMINAL PAIN, PANCREATITIS Narrative: Mrs. Carney is a 60-year-old female with a history of recurrent pancreatitis. Patient came into the emergency room with epigastric pain shooting to the back. Nausea but no vomiting. No fever or chills. No seizure convulsion. No alcohol consumption. No unusual food intake. Patient has had previous pancreatitis before. She has had a cholecystectomy before. She does not drink alcohol. Patient is feeling much better today. She denies any chest pain, cough or congestion. Opioid HPI Opioid Management Most Recent Pain and Opioid Data: Last Pain Scale 5 Today, 12:50 Last Pain Assessment 07/06/25, 23:00 Last ED Pain Assessment 07/06/25, 19:13 Last ORT Total Score 1 07/06/25, 22:55 Last ORT Risk Category Low Risk 07/06/25, 22:55 Review of Systems ROS Status of ROS 10 or more systems reviewed and unremarkable except as noted in history and below PFSH [facility] Medical History (Updated 07/06/25 @ 23:07 by Nisha Reyes) FH: heart attack ?Z82.49 - Family history of ischemic heart disease and other diseases of the circulatory system (ICD-10) Sleep apnea, obstructive ?G47.33 - Obstructive sleep apnea (adult) (pediatric) (ICD-10) Pancreatitis ?K85.90 - Acute pancreatitis without necrosis or infection, unspecified (ICD-10) Abdominal pain ?R10.9 - Unspecified abdominal pain (ICD-10) Acute pancreatitis ?K85.90 - Acute pancreatitis without necrosis or infection, unspecified (ICD-10) Acute abdomen ?R10.0 - Acute abdomen (ICD-10) Depression ?F32.A - Depression, unspecified (ICD-10) Cataract ?H26.9 - Unspecified cataract (ICD-10) Hyperlipidemia ?E78.5 - Hyperlipidemia, unspecified (ICD-10) History of prediabetes ?Z87.898 - Personal history of other specified conditions (ICD-10) Hypertension ?I10 - Essential (primary) hypertension (ICD-10) Surgical History (Updated 07/06/25 @ 23:07 by Nisha Reyes) H/O rhinoplasty ?Z98.890 - Other specified postprocedural states (ICD-10) History of carpal tunnel release of both wrists ?Z98.890 - Other specified postprocedural states (ICD-10) H/O gastric bypass ?Z98.84 - Bariatric surgery status (ICD-10) H/O heart artery stent ?Z95.5 - Presence of coronary angioplasty implant and graft (ICD-10) History of quadruple bypass ?Z95.1 - Presence of aortocoronary bypass graft (ICD-10) Hx of appendectomy ?Z90.49 - Acquired absence of other specified parts of digestive tract (ICD-10) H/O hernia repair ?Z98.890 - Other specified postprocedural states (ICD-10) ?Z87.19 - Personal history of other diseases of the digestive system (ICD-10) Hx of cholecystectomy ?Z90.49 - Acquired absence of other specified parts of digestive tract (ICD-10) Family History (Updated 01/25/24 @ 15:51 by Tamanna Stoll) Mother Family history of CHF (congestive heart failure) Family history of hypertension Father Family history of CHF (congestive heart failure) Family history of COPD (chronic obstructive pulmonary disease) Brother Family history of CHF (congestive heart failure) Family history of stroke Family history of myocardial infarction Family history of hypertension Grandmother Family history of cancer Sister Family history of hypertension Social History (Updated 02/04/24 @ 20:01 by Carrie Guzman) Within the past year, how often did you have a drink containing alcohol: never Score interpretation: A score less than 3 is consistent with normal alcohol consumption. 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 Highest level of school completed/degree received: Bachelor's degree Are you now , , , , never or living with a partner: In a typical week, how many times do you talk on the telephone with family, friends, or neighbors: 3 or more times per week How often do you get together with friends or relatives: 3 or more times per week How often do you attend presybeterian or catholic services: 1-3 times per year Little interest or pleasure in doing things: not at all Feeling down, depressed, or hopeless: not at all Feel stressed/tense/nervous/anxious/difficulty sleeping: to some extent Do you think of yourself as: straight/heterosexual Gender Identity: female Meds Home Medications and Allergies Home Medications ?Medication ?Instructions ?Recorded ?Confirmed ?Type aspirin 81 mg tablet,delayed 81 mg PO DAILY 01/25/24 07/06/25 History release cevimeline 30 mg capsule 30 mg PO TID 01/25/24 07/06/25 History citalopram 40 mg tablet 40 mg PO DAILY 01/25/24 07/06/25 History fluticasone propionate 50 1 spray intranasal BID 01/25/24 07/06/25 History mcg/actuation nasal spray,suspension rabeprazole 20 mg tablet,delayed 20 mg PO BID 01/25/24 07/06/25 History release tamsulosin 0.4 mg capsule 0.4 mg PO DAILY 01/25/24 07/06/25 History amlodipine 2.5 mg tablet 2.5 mg PO DAILY 09/30/24 07/06/25 History clopidogrel 75 mg tablet 75 mg PO DAILY 09/30/24 07/06/25 History mirabegron 50 mg tablet,extended 50 mg PO .qhs 09/30/24 07/06/25 History release 24 hr nitroglycerin 0.4 mg sublingual 0.4 mg sublingual Q5M PRN chest 09/30/24 07/06/25 History tablet pain vit C 250 mg-vit E 90 mg-zinc 40 1 tab PO BID 10/01/24 07/06/25 History mg-copper 1 mg-thlbus-jtqybj capsule (PreserVision AREDS-2) Saccharomyces boulardii 2 cap PO .QD 01/02/25 07/07/25 History estradiol 0.01% (0.1 mg/gram) 1 appful vaginal .every other day 07/06/25 07/06/25 History vaginal cream hydrochlorothiazide 25 mg tablet 25 mg PO DAILY 07/06/25 07/06/25 History hyoscyamine sulfate 0.125 mg tablet 0.25 mg PO Q4H PRN bladder spasms 07/07/25 07/07/25 History xacqyf-jnysvjjh-kfejmww 1 cap PO TIDWM 07/07/25 07/07/25 History (pork)36,000-114,000-180k unit capsule,del rel (Creon) xfryvu-hdbfdadz-tyhyhbv(pork)12,000-38,000-60,000 1 cap PO QPM 07/07/25 07/07/25 History unit capsule,del rel (Creon) Allergies Allergy/AdvReac Type Severity Reaction Status Date / Time latex Allergy Severe Anaphylaxis Verified 07/06/25 22:59 Penicillins Allergy Intermediate Hives Verified 07/06/25 22:59 Sulfa (Sulfonamide Allergy Intermediate Hives Verified 07/06/25 22:59 Antibiotics) hydromorphone (From Dilaudid) Allergy Mild Hives Verified 07/06/25 22:59 adhesive tape AdvReac Hives Verified 07/06/25 22:59 Exam Narrative Exam Narrative: [pt is awake and alert. oriented to place, time and person HEENT: [place] conjunctiva and NL buccal mucosa Neck: Supple, no tenderness Endocrine: No Thyromegaly. Vascular: No JVD or carotid bruit. Lymphatic: No cervical lymphadenopathy. Chest: CTA no DTP. Heart RRR, no extra sound or murmur. Abd: Soft, minimal tenderness in the epigastric area no rebound and no rigidity and no guarding. Increase abd girth therefore clinically I could not exclude the possibility of intra abd mass or organomegaly. LE: No cyanosis or clubbing, no varices or edema. Neuro: A A O. Nl speech, comprehension and attention. Nl and symetrical motor and tone examination through out. []] Constitutional Vital Signs, click to edit/add: Last Vital Signs Temp 97.9 F 07/07/25 12:50 Pulse 64 07/07/25 12:50 Resp 16 07/07/25 08:12 BP 132/65 07/07/25 12:50 Pulse Ox 96 07/07/25 12:50 O2 Del Method Room Air 07/07/25 08:12 Results Labs Labs: Short CBC 07/06/25 07/07/25 Range/Units 18:13 05:16 WBC 6.3 5.5 (4.0-11.0) 10^3/uL Hgb 14.9 13.4 (12.0-16.0) g/dL Hct 44.6 41.5 (36.0-48.0) % Plt Count 235 185 (150-450) 10^3/uL BMP 07/06/25 07/07/25 18:13 05:16 Sodium 136 141 Potassium 4.0 4.3 Chloride 101 106 Carbon Dioxide 29.4 32.8 H BUN 25.0 H 20.0 H Creatinine 0.59 0.73 Glucose 87 97 Calcium 9.9 8.6 Liver Function 07/06/25 07/07/25 Range/Units 18:13 05:16 Total Bilirubin 0.4 0.3 (0.2-1.0) mg/dL AST 21 16 (15-37) U/L ALT 36 28 (14-59) U/L Alkaline Phosphatase 122 H 97 (46-116) U/L Albumin 3.8 3.1 L (3.4-5.0) g/dL Assessment and Plan Assessment and Plan (1) Pancreatitis: Plan Acute and recurrent pancreatitis. Abdominal pain is subsiding. Lipase is trending down. CAT scan does not show any acute intra-abdominal process. Normal white count, hemoglobin, electrolytes and kidney function. Normal LFTs. Patient had cholecystectomy in the past. Patient stated that she was seen by GI specialist in [place] by the name of Dr. Jefferson Mathew . He referred her to see interventional GI specialist in [place] for ERCP and stent insertion given her history of gastric bypass and the distorted anatomy. Patient has an appointment with the interventional GI end of the month. As needed pain medication. As needed nausea medication. IV fluid. Low-fat diet Continue Creon Hypertension Continue amlodipine Chronic, subacute medical conditions not listed above, abnormal labs and imaging. These would need to be addressed. Could be addressed later on or in the outpatient setting by PCP collaboration with other needed outpatient providers when time and condition are appropriate.
[2025-07-07] MEDS: OXYCODONE HCL 5 MG TABLET PO (13:38)
[2025-07-07] MEDS: CITALOPRAM HYDROBROMIDE 20 MG TABLET 40 MG PO (14:21)
[2025-07-07] MEDS: ASPIRIN 81 MG TABLET.DR PO (14:21)
[2025-07-07] MEDS: CLOPIDOGREL BISULFATE 75 MG TABLET PO (14:21)
[2025-07-07] MEDS: TAMSULOSIN HCL 0.4 MG CAPSULE PO (14:21)
[2025-07-07] MEDS: 0.9 % SODIUM CHLORIDE 1,000 ML 70 ML IV (14:46)
[2025-07-07 16:48] LABS: Glucose Urine UA NEGATIVE (NEGATIVE)
[2025-07-07 16:52] LABS: Cast Seen? NONE SEEN #/LPF (NONE SEEN); Crystals Seen? None Seen #/HPF (None Seen); Urine Culture Indicated NO
[2025-07-07] MEDS: [UNRECOGNIZED DRUG - OTHER] 7 CAP PO (17:13)
[2025-07-07] MEDS: ENOXAPARIN SODIUM 40 MG/0.4 ML SYRINGE SUBQ (21:25)
[2025-07-07] MEDS: OXYBUTYNIN CHLORIDE 5 MG TAB XL 10 MG PO (21:25)
[2025-07-08] VITALS (7 sets, daily range): BP systolic 149–151; BP diastolic 83–94; PULSE 55–66; TEMP 36.3–36.6; O2SAT 93–95
[2025-07-08] MEDS: 0.9 % SODIUM CHLORIDE 1,000 ML 70 ML IV (04:57)
[2025-07-08 06:06] LABS: Lipase 43.0 U/L (16.0-77.0)
--- NOTE | 2025-07-08 08:50 | PM.DS1 ---
DS: Providers Provider Date of admission: 07/07/25 08:37 Primary care physician: Ziggy Dejesus MD DS: Diagnosis Discharge Diagnosis (1) Pancreatitis: Plan As listed above, below and others that are not listed DS: Summary Hospital Course Hospital Course: Mrs. Carney is a 60-year-old female who came in with abdominal pain in the epigastric area radiating toward the mid back. Acute and recurrent pancreatitis. Abdominal pain is subsiding. Lipase is trending down. Lipase is down to 43 from 402 CAT scan does not show any acute intra-abdominal process. Normal white count, hemoglobin, electrolytes and kidney function. Normal LFTs. Patient had cholecystectomy in the past. Patient stated that she was seen by GI specialist in [place] by the name of Dr. Marsh? [place] . He referred her to see interventional GI specialist in [place] for ERCP and stent insertion given her history of gastric bypass and the distorted anatomy. Patient has an appointment with the interventional GI in [place] end of the month. As needed pain medication. As needed nausea medication. IV fluid. Low-fat diet Continue Creon Patient is feeling much better. Patient is really physically and psychologically to be discharged home. Hypertension Continue amlodipine Chronic, subacute medical conditions not listed above, abnormal labs and imaging. These would need to be addressed. Could be addressed later on or in the outpatient setting by PCP collaboration with other needed outpatient providers when time and condition are appropriate. Patient has multiple medical issues as listed above and others that are not listed. All appear to be stable. Patient is feeling great and ready physically and psychologically to go home. Significant resolution of abdominal and back pain. Patient is tolerating her diet. No fever or chills. No hematemesis or melena. I do not have any clear or strong clinical justification to extend inpatient hospitalization. Patient however will require close and frequent monitoring as well as additional work-up, investigation and therapeutic intervention that could take place from this point on post discharge. That is to prevent relapse, decompensation, rehospitalization and other medical implications.. I instructed patient to ask her primary care doctor to obtain [facility] record entirely to address abnormalities seen on labs and imaging that I have and have not addressed during this hospitalization, follow-up on pending blood work, imaging and pathology is if available and to follow-up on needed medical care in the outpatient setting. Time Spent with Patient Time attestation: Total time spent providing and/or coordinating discharge services: Exam Constitutional Vital Signs, click to edit/add: Last Vital Signs Temp 97.4 F L 07/08/25 07:31 Pulse 66 07/08/25 08:00 Resp 18 07/08/25 07:31 BP 151/94 H 07/08/25 07:31 Pulse Ox 95 07/08/25 07:31 O2 Del Method Room Air 07/08/25 07:31 DS: Data Data Completed and Pending Labs on day of discharge: Labs from last 24 hours 07/08/25 07/07/25 05:01 15:12 Lipase 43.0 Urine Color Lt yellow Urine Clarity Clear Urine pH 5.5 Ur Specific [place] <=1.005 A Urine Protein Negative Urine Glucose (UA) Negative Urine Ketones Negative Urine Occult Blood Negative Urine Nitrite Negative Urine Bilirubin Negative Urine Urobilinogen 0.2 Ur Leukocyte Esterase Negative Urine RBC None seen Urine WBC 2-5 A Ur Squamous Epith Cells Rare Urine Crystals None seen Amorphous Sediment Rare Urine Bacteria Trace A Urine Casts None seen Urine Mucus None seen Ur Culture Indicated? No Discharge Plan Discharge Disposition: Home, Self-Care Discharge Medications: New oxycodone 5 mg Tablet 5 mg PO Q6H PRN (Reason: MODERATE PAIN) Qty: 25 0RF Continued aspirin 81 mg tablet,delayed release (DR/EC) 81 mg PO DAILY cevimeline 30 mg capsule 30 mg PO TID citalopram 40 mg tablet 40 mg PO DAILY fluticasone propionate 50 mcg/actuation spray,suspension 1 spray INTRANASAL BID rabeprazole 20 mg tablet,delayed release (DR/EC) 20 mg PO BID tamsulosin 0.4 mg capsule 0.4 mg PO DAILY amlodipine 2.5 mg tablet 2.5 mg PO DAILY clopidogrel 75 mg tablet 75 mg PO DAILY nitroglycerin 0.4 mg tablet, sublingual 0.4 mg sublingual Q5M PRN (Reason: chest pain) mirabegron 50 mg tablet extended release 24 hr 50 mg PO .qhs PreserVision AREDS-2 250-90-40-1 mg capsule 1 tab PO BID Saccharomyces boulardii [Digest Probiotic (S.boulardii)] 2 cap PO .QD Patient Comments: takes two in am and 1 in pm hydrochlorothiazide 25 mg tablet 25 mg PO DAILY Patient Comments: pt has been taking a 'quarter of a tab' estradiol 0.01 % (0.1 mg/gram) cream 1 appful VAGINAL .every other day Patient Comments: every other day Creon 12,000-38,000 -60,000 unit capsule,delayed release(DR/EC) 1 cap PO QPM Rx Instructions: with a snack Creon 36,000-114,000- 180,000 unit capsule,delayed release(DR/EC) 1 cap PO TIDWM hyoscyamine sulfate 0.125 mg tablet 0.25 mg PO Q4H PRN (Reason: bladder spasms) Print Language: Bermudian Activity Restrictions/Additional Instructions: I may not have addressed or treated all of your medical illnesses or the abnormal blood work or imaging studies during this hospitalization. Please ask your primary care provider to obtain [place] records entirely to follow up on all of the abnormal physical, laboratory, and imaging findings that I have not addressed. Please return back to the emergency room or seek medical attention if your symptoms worsen or return. Please follow-up with your pancreatic specialist in [place] and of the month as already been scheduled. Discharging you from [place] does not mean that your medical care ends here and now. You may still need additional monitoring, work up, investigation, and treatment plan to be handled from this point on by out patient providers including your primary care provider and specialists. For any medication question, please contact your retail pharmacist or your primary care provider. Thank you. Forms: Portal Instructions Referrals: Ziggy Dejesus MD [Primary Care Provider, Family Practice]
[2025-07-08] MEDS: PANTOPRAZOLE SODIUM 40 MG VIAL IV (09:31)
[2025-07-08] MEDS: AMLODIPINE BESYLATE 5 MG TABLET 2.5 MG PO (09:31)
[2025-07-08] MEDS: CITALOPRAM HYDROBROMIDE 20 MG TABLET 40 MG PO (09:31)
[2025-07-08] MEDS: ASPIRIN 81 MG TABLET.DR PO (09:31)
[2025-07-08] MEDS: TAMSULOSIN HCL 0.4 MG CAPSULE PO (09:31)
[2025-07-08] MEDS: CLOPIDOGREL BISULFATE 75 MG TABLET PO (09:32)
[2025-07-08] MEDS: [UNRECOGNIZED DRUG - OTHER] 7 CAP PO (09:32)
--- NOTE | 2025-07-08 09:36 | CM.NOTE ---
Rounds made with . Pt to discharge home today. Needs follow up with PCP and to keep appt scheduled with GI specialist in [place].
--- NOTE | 2025-07-09 13:25 | CM.DCFOLLOWU ---
Person spoke with:patient How are you feeling? well How is your pain? some pain, but feels like it is due to her eating pumpkin seeds and will try to eat in moderation Did you understand your discharge instructions?yes Do you have any questions about your discharge instructions?no Were you given any prescriptions at discharge? yes Were you able to get your prescriptions filled?yes Do you understand how to take your medications as ordered? yes Do you have any questions about your follow up appointment and do you plan to keep your follow up appointment? no questions, reviewed follow up Is there anything else that you would like to discuss?no Questions/Comments/Concerns/Other:no
== END 2025-07-08 10:25 | disposition home or self-care (01) | DRG 440 ==
LOC: ER 22:15 → MS 22:53
PROVIDERS: Admitting Provider Internal Medicine; Emergency Provider Emergency Medicine; PCP Family Medicine; Visit Provider Internal Medicine
DX: K85.90 Acute pancreatitis without necrosis or infection, unspecified (principal); K86.1 Other chronic pancreatitis; I10 Essential (primary) hypertension; Z90.49 Acquired absence of other specified parts of digestive tract; Z79.82 Long term (current) use of aspirin; Z79.899 Other long term (current) drug therapy; F32.A Depression, unspecified; E78.5 Hyperlipidemia, unspecified; Z98.84 Bariatric surgery status; Z95.5 Presence of coronary angioplasty implant and graft; Z95.1 Presence of aortocoronary bypass graft; G47.33 Obstructive sleep apnea (adult) (pediatric)
CPT/HCPCS: 36415; 74177; 80053; 80061; 81001; 82150; 83690; 83735; 84100; 85025; 93005; 96372; 96374; 96375; 99285; G0378; J1171; J1200; J1650; J2405; Q9967

== ENCOUNTER 2025-07-14 11:26 | Outpatient (OUT) | payer BC, SELFPAY ==
--- OUTSIDE RECORDS SUMMARY | 2025-07-06 13:00 | XMS_ITS ---
Author Organization [facility] [place] Address [address] [place] [address] Care Team Providers Care Business Education Professor Name Role Phone Deacon Dejesus Primary Care [...] Drug Allergy A ctive REASON FOR VISIT patient is nausea and pain, pain in 6/10 in her back and right ovary pain, patient states she feelslike cramp Medications Medication SIG (Take, Route, Frequency, Duration) Notes Start Date End Date Status Hyoscyamine Sulfate 0.125 MG 1-2 tabs SL SL every 4 hrs PRN abd pain 07/06/2025 Active Diclofenac Sodium 3 % 1 application Externally Twice a day; Duration: 30 days 05/15/2025 Active Estradiol Active Fluticasone Propionate 50 MCG/ACT INSTILL 1 SPRAY IN EACH NOSTIRL TWICE A DAY.; Duration: 90 days Active hydroCHLOROthiazide 12.5 MG Oral; Durati on: 90 Days Active Aspirin Low Dose 81 MG Oral; Duration: 9 0 Days Active Cevimeline HCl 30 MG 1 capsule Orally qi d; Duration: 90 days 02/12/2024 Active Citalopram Hydrobromide 40 MG 1 tablet O rally Once a day; Duration: 30 days Active Clopidogrel Bisulfate 75 MG 1 tablet Ora lly Once a day 08/27/2024 Active traMADol HCl 50 MG 1 tablet as needed Orally 4 times a day; Duration: 7 days 01/24/2024 Active Ondansetron 4 MG 1 tablet on the tong ue and allow to dissolve Orally qid 07/06/2025 Active Pancrelipase (Icq-Zwks-Hzac) 29[address] UNIT 1 capsule Orally ac and hs 09/25/2024 Active PreserVision AREDS A ctive RABEprazole Sodium 20 MG TAKE 1 TABLET T WICE A DAY; Duration: 90 days Active Tamsulosin HCl 0.4 MG 1 capsule Orally B ID; Duration: 90 days Active Hyoscyamine Sulfate 0.125 MG 2 tablet as needed Orally every 4 hrs PRN abd pain 04/28/2024 Active Mometasone Furoate 0.1 % 1 application Externally BID; Duration: 30 days Thin application to area of rash 05/15/2025 Active Xghztces-Amraitaog-Juaqqkkn 3.5-70622-1.1 1 drop into affected eye Ophthalmic Four times a day; Duration: 7 days 04/16/2025 Active Nitroglycerin 0.[address] 1 tablet unde r the tongue if needed every 5 minutes for nimco... (REFER TO PRESCRIPTION NOTES). Sublingual; Duration: 30 Days Active Nystatin 794830 UNIT/GM 1 application Externally Twice a day; Duration: 30 days 11/12/2023 Active hydroCHLOROthiazide 25 MG TAKE 1 TABLET BY MOUTH EVERY MORNING; Duration: 30 Active Social History Tobacco Use: Social History Observation Description Date Details (start date - stop date) Never Smoker NA - NA Tobacco Use/Smoking Question Answer Notes Patient is a nonsmoker AUDIT-C (Standard) Question Answer Notes Did you have a drink containing alcohol in the p ast year? No Points 0 Interpretation Negative Vital Signs Weight 188 lbs 07/06/2025 Height 63 in 07/06/2025 Blood pressure systolic 140 mm Hg 07/06/20 25 Blood pressure diastolic 80 mm Hg 025 BMI 33.3 kg/m2 07/06/2025 Encounters Encounter Location Date Provider Diagnosis [facility] [address] [place] [address] 07/06/2025 Deacon Dejesus Acute pancreatitis K85.90 Assessments Encounter Date Diagnosis (ICD Code) Assessment Notes Treatment Notes Treatment Clinical Notes Section Notes 07/06/2025 Acute pancreatitis (ICD-10 - K85.90) Plan Of Treatment Medication Medication Name Sig Start Date Stop Date Notes Hyoscyamine Sulfate 0.125 MG 1-2 tabs SL SL every 4 hrs PRN abd pain 07/06/2025 Ondansetron 4 MG 1 tablet on the tong ue and allow to dissolve Orally qid 07/06/2025 Next Appt Details Provider Name:Deacon Gordilloestefani, 05:00:00 PM, [address] [place], [address], Progress Notes * Tiarra SALEEM CDOB:[birth year] (60 yo F)Acc No.[id number]:07/06/2025 Progress Note Patient: Tiarra JIM Provider: Bharti Dejesus ([facility])MD :1965 A ge:60 Y S ex:Female Date:07/06/2025 Address:[address] [place], [place] [address] Check In:05:07 PM ESTCheck O ut:05:37 PM EST Subjective: * Chief Complaints: * P atient is nausea and pain, pain in 6/10 in her back and right ovary pain, patient states she feels like cramp * ROS: E ENT: hearing changes d [...] emic Modified On:11/12/2023 Status:confirmed E78.1 Hypertriglyceridemia Modified On:11/14/2023 Status:confirmed M25.50 Arthralgia Modified On:11/12/2023 Status:confirmed E78.00 [...] Heart Disease, Lung Disease, COPD, diagnosed with Heart Disease. M other: alive, Open Heart surgery x2, Cardiac History, anemic, rheumatoid arthritis , Hypercholesterolemia, diagnosed with Hypertension. B rother(s): alive, Open Heart Surgery, Hypertension, Stroke, diagnosed with Hypertension. S ister(s): alive, diagnosed with Hypertension. 3 brother(s) , 2 sister(s) . . [...] Tablet 1 tablet Orally Once a day Diclofenac Sodium 3 % Gel 1 application Externally Twice a day Estradiol Fluticasone Propionate 50 MCG/ACT Suspension INSTILL 1 SPRAY IN EACH NOSTIRL TWICE A DAY. hydroCHLOROthiazide 12.5 MG Tablet Oral hydroCHLOROthiazide 25 MG Tablet TAKE 1 TABLET BY MOUTH EVERY MORNING Hyoscyamine Sulfate 0.125 MG Tablet 2 tablet as needed Orally every 4 hrs PRN abd pain Mometasone Furoate 0.1 % Cream 1 application Externally BID Thin application to area of tslvUkfrpsws-Rcigfqwyn-Spryeyin 3.5-83066-2.1 Suspension 1 drop into affected eye Ophthalmic Four times a day Nitroglycerin 0.[address] 1 tablet under the tongue if needed every 5 minutes for nimco... (REFER TO PRESCRIPTION NOTES). Sublingual Nystatin 832285 UNIT/GM Powder 1 application Externally Twice a day Pancrelipase (Nye-Cpil-Kcyq) [address]195-[address] UNIT Capsule Delayed Release Particles 1 capsule [...] 1 tablet Orally Once a day Taking Diclofenac Sodium 3 % Gel 1 application Externally Twice a day Taking Estradiol Taking Fluticasone Propionate 50 MCG/ACT Suspension INSTILL 1 SPRAY IN EACH NOSTIRL TWICE A DAY. Taking hydroCHLOROthiazide 12.5 MG Tablet Oral Taking hydroCHLOROthiazide 25 MG Tablet TAKE 1 TABLET BY MOUTH EVERY MORNING Taking Hyoscyamine Sulfate 0.125 MG Tablet 2 tablet as needed Orally every 4 hrs PRN abd pain Taking Mometasone Furoate 0.1 % Cream 1 application Externally BID Thin application to area of rashTaking Jmdxgxtk-Qvsahpdrx-Ckqajecb 3.5-95490-8.1 Suspension 1 drop into affected eye Ophthalmic Four times a day Taking Nitroglycerin 0.[address] 1 tablet under the tongue if needed every 5 minutes for nimco... (REFER TO PRESCRIPTION NOTES). Sublingual Taking Nystatin 190537 UNIT/GM Powder 1 application Externally Twice a day Taking Pancrelipase (Mfn-Xygw-Safk) [address] UNIT Capsule Delayed Release Particles 1 capsule [...] - Allergyno[Allergies Verified] Objective: * Vitals: W t:188lbs, Ht: 63 in, BP:140/80mm Hg, BMI:33.3Index, Ht-cm: 160.02 cm, Wt-k.28 kg. * Examination: P hysical Exam: GENERAL: [...] gallop. PULSES: n ormal capillary refill. ABDOMEN: D iffuse tendernsss. MUSCULOSKELETAL: n o deformity or scoliosis noted, [...] mood and affect. Assessment: * Assessment: 1. A cute pancreatitis - K85.90 (Primary) Plan: * Treatment: * Procedure Codes: * Preventive Medicine: Screenings/Counseling: B ID ACTION PLAN Above Normal BMI Follow-up D ietary management education, guidance, and counseling * * Sign off status: Completed Visit Status: C HK (Check Out) true * Provider: Bharti Dejesus ([facility])MD Date: Generated for Printi ng/Faxing/eTransmitting on: 11:29 AM EDT History and Physical Notes * Examination Category Sub-Category Detail Notes Category Not [...] gallop PULSES: normal capillary ref ill ABDOMEN: Diffuse tendernsss RECTAL: MUSCULOSKELETAL: no deformity or scol iosis [...]
--- OUTSIDE RECORDS SUMMARY | 2025-07-08 12:40 | XMS_ITS ---
Author Organization [facility] in [place] Address [address] [place] [address] Care Team Providers Care Pension Agent Name Role Phone Deacon Dejesus Primary Care Provider [phone] REASON FOR VISIT off work- Encounters Encounter Location Date Provider Diagnosis [facility] [address] [place] [address] 07/08/2025 Deacon Dejesus Plan Of Treatment Next Appt Details Provider Name:Deacon Clements Duyestefani, 05:00:00 PM, [address] [place], [address], Progress Notes * Tiarra SALEEM CDOB:[birth year] (60 yo F)Acc No.[id number]:07/08/2025 Patient: Megan HERNANDESTiarra :1965 A ge:60 Y S ex:Female Address:[address] [place] [address], [phone] Subjective: * Chief Complaints: * O ff work- * Medical History: * Surgical History: * Hospitalization/Major Diagno stic Procedure: * Medications: Objective: * Vitals: * Physical Examination: Assessment: Plan: * Treatment: * Procedure Codes: * true * Date: Generated for Printi ng/Faxing/eTransmitting on: 11:29 AM EDT
--- OUTSIDE RECORDS SUMMARY | 2025-07-14 11:29 | XMS_ITS | Encounter Summary ---
Author Organization [facility] Address [address] [place] [address] Phone Care Team Providers Care Optometric Technologist Name Role Phone Ziggy Dejesus MD Primary Care Provider [phone] Anita Hammonds RN Unavailable Unavailable Encounter Details Date Type Department Care Team (Late st Contact Info) Description 08/21/2024 Scanned Document [facility] [address] [place] [address] Scanning, Generic Provider Social History [...] Description 08/18/2025 11:20 AM EST Office Visit [facility] [address] [facility] [address] [place] [address] Celso Garibay DO [address] [facility] [address] [place] [address] documented as of this encounter Visit Diagnoses Not on filedocumented in this encounter Care Teams Optometric Technologist Relationship Specialty Start Date End Date Ziggy Dejesus MD [address] [place] [address] PCP - General 08/17/21 Anita Hammonds, resident in diagnostic radiologyAirfreight Operations Agent 08/22/24 10/03/24 documented as of this encounter
--- OUTSIDE RECORDS SUMMARY | 2025-07-14 11:29 | XMS_ITS | Encounter Summary ---
Author Organization [employer] Address [id number] [address] [place] [address] Care Team Providers Care Greaser Operator Name Role Phone Ziggy Dejesus MD Primary Care Provider [phone] Reason for Visit * Reason Comments Med Refill Encounter Details Date Type Department Care Team (Late st Contact Info) Description 01/31/2024 Refill [facility] [address] [place] [address] Antonia Banda, PA-C [address] [facility] [address] [place] [address] Xerostomia Social History Tobacco Use Types Packs/Day [...] documented as of this encounter Care Teams Greaser Operator Relationship Specialty Start Date End Date Ziggy Dejesus MD PCP - General 02/22/17 documented as of this encounter
--- OUTSIDE RECORDS SUMMARY | 2025-07-14 11:29 | XMS_ITS | Encounter Summary ---
Author Organization [facility] Address [address] [place] [address] Phone Care Team Providers Care Data Conversion Analyst Name Role Phone Ziggy Dejesus MD Primary Care Provider [phone] Anita Hammonds RN Unavailable Unavailable Encounter Details Date Type Department Care Team (Late st Contact Info) Description 10/09/2022 Orders Only [facility] [address] [place] [address] Conversion, Onbase Social History Tobacco Use Types [...] Description 08/18/2025 11:20 AM EST Office Visit [facility] [address] [facility] [address] [place] [address] Celso Garibay DO [address] [facility] [address] [place] [address] Scheduled Orders Name Type Priority Associated Diagnoses Orde r Schedule OUTSIDE LAB SCAN Lab Ordered: 10/09/2022 documented as of this encounter Visit Diagnoses Not on filedocumented in this encounter Care Teams Data Conversion Analyst Relationship Specialty Start Date End Date Ziggy Dejesus MD [address] [place] [address] PCP - General 08/17/21 Anita Hammonds, whittling room operatorFrame Stripper And Crusher 08/22/24 10/03/24 documented as of this encounter
--- OUTSIDE RECORDS SUMMARY | 2025-07-14 11:29 | XMS_ITS | Encounter Summary ---
Author Organization [employer] Address [id number] [address] [place] [address] Care Team Providers Care Metal Model Maker Name Role Phone Ziggy Dejesus MD Primary Care Provider [phone] Encounter Details Date Type Department Care Team (Late st Contact Info) Description 02/08/2024 Telephone [facility] [address] [place] [address] Devaughn Messer MD PhD [address] [address] RETIRED 04/30/2024 [place] [address] Social History Tobacco Use Types [...] documented as of this encounter Care Teams Metal Model Maker Relationship Specialty Start Date End Date Ziggy Dejesus MD PCP - General 02/22/17 documented as of this encounter
--- OUTSIDE RECORDS SUMMARY | 2025-07-14 11:29 | XMS_ITS | Encounter Summary ---
Author Organization [facility] Address [address] [place] [address] Phone Care Team Providers Care Cured Meats Supervisor Name Role Phone Ziggy Dejesus MD Primary Care Provider [phone] Anita Hammonds RN Unavailable Unavailable Encounter Details Date Type Department Care Team (Late st Contact Info) Description 08/18/2024 Scanned Document [facility] [address] [place] [address] Scanning, Generic Provider Social History [...] Description 08/18/2025 11:20 AM EST Office Visit [facility] [address] [facility] [address] [place] [address] Celso Garibay DO [address] [facility] [address] [place] [address] documented as of this encounter Procedures Procedure Name Priority Date/Time Associated Diagnosis Comments OUTSIDE IMAGING SCAN 08/18/2024 documented in this encounter Results * OUTSIDE IMAGING SCAN (08/18/2024) Anatomical Region Laterality Modality Other Narrative 08/18/2024 Ordered by an unspecified provider. us Generic Provider Scanning OUTSIDE SCAN Final Result documented in this encounter Visit Diagnoses Not on filedocumented in this encounter Care Teams Cured Meats Supervisor Relationship Specialty Start Date End Date Ziggy Dejesus MD [address] [place] [address] PCP - General 08/17/21 Anita Hammonds, database security expertStroke Program Coordinator 08/22/24 10/03/24 documented as of this encounter
--- OUTSIDE RECORDS SUMMARY | 2025-07-14 11:29 | XMS_ITS | Encounter Summary ---
Author Organization [facility] Address [address] [place] [address] Phone Care Team Providers Care Cruise Guide Name Role Phone Ziggy Dejesus MD Primary Care Provider [phone] Anita Hammonds RN Unavailable Unavailable Encounter Details Date Type Department Care Team (Late st Contact Info) Description 08/20/2024 Scanned Document [facility] [address] [place] [address] Scanning, Generic Provider Social History [...] EST Office Visit [facility] [address] [facility] [address] [place] [address] Celso Garibay DO [address] [facility] [address] [place] [address] documented as of this encounter Visit Diagnoses Not on filedocumented in this encounter Care Teams Cruise Guide Relationship Specialty Start Date End Date Ziggy Dejesus MD [address] [place] [address] PCP - General 08/17/21 Anita Hammonds, white spoolerTest Data Developer 08/22/24 10/03/24 documented as of this encounter
--- OUTSIDE RECORDS SUMMARY | 2025-07-14 11:29 | XMS_ITS | Clinical Summary ---
Author Organization [facility] Address [address] [place] [address] Care Team Providers Care Pump Servicer Name Role Phone Ziggy Dejesus MD Primary Care Provider [phone] Allergies Active Allergy Reactions Criticality Noted Date [...] Visit [facility] [address] [place] [address] Jr. Torsten Sinha, DO Tendonitis of wrist, right; Right wrist pain 06/23/2025 Bamboo flowsheet [facility] [place] [address] Jr. Torsten Sinha, DO 06/23/2025 Travel 06/16/2025 9:15 AM EDT Ancillary Procedure [facility] [address] [facility] [facility] [address] [place] [address] Chronic pain of right wrist 06/16/2025 Travel 06/15/2025 Travel 06/02/2025 10:15 AM EDT Office Visit [facility] [place] [address] Jr. Torsten Sinha, Chronic pain of right wrist 06/02/2025 Bamboo flowsheet [facility] [place] [address] Jr. Torsten Sinha, DO 06/02/2025 Travel 05/27/2025 3:15 PM EDT Procedure Visit [facility] [address] [facility] [address] [place] [address] Corbin Louie MD Numbness (Primary Dx); Paresthesias; Carpal tunnel syndrome, left 05/27/2025 Travel 05/15/2025 11:55 AM EDT Ancillary Procedure [facility] [place] [address] 05/15/2025 11:30 AM EDT [facility] [place] [address] Arik Byrd PA Right wrist pain (Primary Dx); Arm weakness; Numbness; Arm pain, right; Ulnar neuropathy of right upper extremity 05/15/2025 Bamboo flowsheet [facility] [address] [place] [address] Arik Byrd PA 05/15/2025 Travel from Last [...] Care Team (Late st Contact Info) Description 08/04/2025 10:45 AM EST Office Visit [place] [address] [place] [address] Jr. Torsten Sinha, [address] [facility] [address] [place] [address] Health Maintenance Due Date Last Done Comments [...] discussed. ELECTRONICALLY SIGNED BY: Wilder Arango MD Jr. Torsten Sinha DO IMG MRI PROCEDURES Jen carmen Result * XR wrist 1 or 2 [...] Resul t from Last 3 Months Insurance BS Care Teams Pump Servicer Relationship Specialty Start Date End Date Ziggy Dejesus MD [address] [place] [address] PCP - General Family Medicine 02/13/25
--- OUTSIDE RECORDS SUMMARY | 2025-07-14 11:30 | XMS_ITS | Patient Health Record ---
Author Organization [facility] [place] Address [address] [place] [address] Care Team Providers Care Police Communications Operator Name Role Phone Deacon Dejesus Primary Care Provider [phone] Allergies Allergen (clinical drug ingredient) Drug/Non Drug [...] Reference Range Notes CBC AUTO DIFF Reviewed date:10/01/2024 03:36:44 PM Interpretation: Performing Lab: Notes/Report: [facility] , White Blood Count 6.7 4.0-11.0 [...] 0.00-0.03 10 3/uL Performing Lab: see note [facility] LB UA RANDOM W or MICROSCOPIC Reviewed date:10/01/2024 03:36:44 PM Interpretation: Performing Lab: Notes/Report: [facility] , Color Urine LT. YELLOW YELLOW Clarity Urine CLEAR CLEAR Specific [place] Urine 1.010 1.005-1.025 pH Urine 7.0 5.0-9.0 [...] NONE SEEN #/LPF Performing Lab: see note - [facility] LB ECG 12 lead Reviewed date:10/05/2024 08:20:23 PM Interpretation: Performing Lab: Notes/Report: Source Facility: [facility]-[address] [place] [address] [place] [address] Electrocardiograph Report Signed Patient: JOSE ALBERTO SALEEM MR#: [id number] : 1965 Acct:[id number] Age/Sex: 59 / F ADM Date: 09/30/24 Loc: MS 215-[address]: Ashley Dejesus M.D. Ordering Physician: Cyrus Woodall M.D. 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 Signed By: 10/02/24 1630 DD/ 1738 TD/TT: Benzene Still Utility Operator: CT abdomen pelvis w con Reviewed date:10/01/2024 03:36:44 PM Interpretation: Performing Lab: Notes/Report: Source Facility: [place] [address] CT Scan Report Signed Patient: JOSE ALBERTO SALEEM MR#: [id number] : 1965 Acct:[id number] Age/Sex: 59 / F ADM Date: 09/30/24 Loc: ER Attending Dr: Ordering Physician: Cyrus Woodall M.D. Date of Service: 09/30/24 Procedure(s): CT abdomen pelvis w con Accession Number(s): [id number] cc: Ashley Dejesus M.D. [place] [id number] Patient Name: JOSE ALBERTO SALEEM MRN: [id number] date: 1965 Sex: F Assigned Patient Location: ER Current Patient Location: ED.MAIN Accession/Order Number: [id number] Exam Date: 09/30/2024 18:06 Report Date: 09/30/2024 [...] M.D. Signed By: 09/30/241852 DD/ 49 TD/TT: Benzene Still Utility Operator: AMMONIA Reviewed date:10/01/2024 03:36:44 PM Interpretation: Performing Lab: Notes/Report: [facility] , Ammonia 26 11-32 umol/L Performing Lab: see note ML - [facility] LB CBC AUTO DIFF Reviewed date:10/01/2024 03:36:44 PM Interpretation: Performing Lab: Notes/Report: [facility] , White Blood Count 4.8 4.0-11.0 [...] Performing Lab: see note ML - [facility] LB LIPASE Reviewed date:10/01/2024 03:36:44 PM Interpretation: Performing Lab: Notes/Report: [facility] , Lipase 57.0 16.0-77.0 U/L Performing Lab: see note - [facility] LB PROF 14(COMP METB) Reviewed date:10/01/2024 03:36:44 PM Interpretation: Performing Lab: Notes/Report: [facility] , Sodium 142 136-145 mmol/L Potassium [...] Lab: see note ML - [facility] LB Blood Culture 2 Reviewed date:10/06/2024 08:37:09 PM Interpretation: Performing Lab: Notes/Report: [facility] , Blood Culture 2 See Below For Report Blood Culture 2 NG5D NO GROWTH AT 5 DAYS. Performing Lab: see note ML - [facility] LB US right upper quadrant Reviewed date:10/05/2024 08:20:23 PM Interpretation: Performing Lab: Notes/Report: Source Facility: [facility]-[address] [place] [address] [place] [address] Ultrasound Report Signed Patient: JOSE ALBERTO SALEEM MR#: [id number] : 1965 Acct:[id number] Age/Sex: 59 / F ADM Date: 09/30/24 Loc: MS 215-[address]: Ashley Dejesus M.D. Ordering Physician: Ashley Dejesus M.D. Date of Service: 10/02/24 Procedure(s): US right upper quadrant Accession Number(s): [id number] cc: Ashley Dejesus M.D. [place] [address] Patient Name: JOSE ALBERTO SALEEM MRN: [id number] date: 1965 Sex: F Assigned Patient Location: MS Current Patient Location: MS Accession/Order Number: [id number] Exam Date: 10/02/2024 07:40 Report Date: 10/02/2024 [...] Signed By: 10/02/24 0843 DD/ 0841 TD/TT: Benzene Still Utility Operator: LIPASE Reviewed date:10/05/2024 08:20:23 PM Interpretation: Performing Lab: Notes/Report: [facility] , Lipase 75.0 16.0-77.0 U/L Performing Lab: see note ML - [facility] LB AMYLASE Reviewed date:01/04/2025 03:44:31 PM Interpretation: Performing Lab: Notes/Report: [facility] , Amylase 306 25-115 U/L RESULTS CALLED TO COLE SYKES LPN at 0929 Performing Lab: see note ML - [facility] LB CBC AUTO DIFF Reviewed date:01/04/2025 03:44:31 PM Interpretation: Performing Lab: Notes/Report: [facility] , White Blood Count 5.0 4.0-11.0 [...] Performing Lab: see note ML - [facility] LB LACTATE or LACTIC ACID Reviewed date:01/04/2025 03:44:31 PM Interpretation: Performing Lab: Notes/Report: [facility] , Lactate/Lactic Acid 0.9 0.4-2.0 mmol/L Performing Lab: see note ML - [facility] LB LIPASE Reviewed date:01/04/2025 03:44:31 PM Interpretation: Performing Lab: Notes/Report: [facility] , Lipase 234.0 16.0-77.0 U/L Performing Lab: see note ML - [facility] LB PROF 14(COMP METB) Reviewed date:01/04/2025 03:44:31 PM Interpretation: Performing Lab: Notes/Report: [facility] , Sodium 144 136-145 mmol/L Potassium [...] Lab: see note ML - [facility] LB AMMONIA Reviewed date:01/04/2025 03:44:31 PM Interpretation: Performing Lab: Notes/Report: [facility] , Ammonia 24 11-32 umol/L Performing Lab: see note ML - [facility] LB AMYLASE Reviewed date:01/04/2025 03:44:31 PM Interpretation: Performing Lab: Notes/Report: [facility] , Amylase 136 25-115 U/L Performing Lab: see note - [facility] LB CBC AUTO DIFF Reviewed date:01/04/2025 03:44:31 PM Interpretation: Performing Lab: Notes/Report: [facility] , White Blood Count 5.0 4.0-11.0 [...] Lab: see note ML - [facility] LB LIPASE Reviewed date:01/04/2025 03:44:31 PM Interpretation: Performing Lab: Notes/Report: [facility] , Lipase 41.0 16.0-77.0 U/L Performing Lab: see note ML - [facility] LB LIPID PROFILE Reviewed date:01/04/2025 03:44:31 PM Interpretation: Performing Lab: Notes/Report: [facility] , Triglycerides 124 <=150 mg/dL Cholesterol [...] Lab: see note ML - [facility] LB PROF 14(COMP METB) Reviewed date:01/04/2025 03:44:31 PM Interpretation: Performing Lab: Notes/Report: [facility] , Sodium 144 136-145 mmol/L Potassium [...] 1.1 Performing Lab: see note ML - [facility] PTT Reviewed date:01/04/2025 03:44:31 PM Interpretation: Performing Lab: Notes/Report: [facility] , Partial Thromboplastin Time 31.4 22.3-36.2 sec Performing Lab: see note - [facility] Prothrombin Time INR Reviewed date:01/04/2025 03:44:31 PM Interpretation: Performing Lab: Notes/Report: [facility] , Prothrombin Time 10.9 9.0-11.6 sec INR 1.03 DESIRED INR: 2.0-3.0 CONDITIONS NOT LISTED BELOW 2.5-3.5 FOR PROSTHETIC HEART VALVE REPLACEMENT 2.5-3.5 RECURRENT THROMBOSIS Performing Lab: see note - [facility] AMYLASE Reviewed date:05/06/2025 12:42:14 PM Interpretation: Performing Lab: Notes/Report: [facility] , Amylase 117 25-115 U/L Performing Lab: see note - [facility] CBC AUTO DIFF Reviewed date:05/06/2025 12:42:14 PM Interpretation: Performing Lab: Notes/Report: [facility] , White Blood Count 5.6 4.0-11.0 10 [...] Lab: see note ML - [facility] LB LIPASE Reviewed date:05/06/2025 12:42:14 PM Interpretation: Performing Lab: Notes/Report: [facility] , Lipase 50.0 16.0-77.0 U/L Performing Lab: see note ML - [facility] LB MAGNESIUM Reviewed date:05/06/2025 12:42:14 PM Interpretation: Performing Lab: Notes/Report: [facility] , Magnesium 2.2 1.8-2.4 mg/dL Performing Lab: see note ML - [facility] LB PHOSPHORUS Reviewed date:05/06/2025 12:42:14 PM Interpretation: Performing Lab: Notes/Report: [facility] , Phosphorus 3.7 2.6-4.7 mg/dL Performing Lab: see note ML - [facility] LB Vitamin B1 (Thiamine), Blood Reviewed date:05/12/2025 08:16:07 PM Interpretation: Performing Lab: Notes/Report: [facility] , Vitamin B1 (Thiamine), Blood 203.9 66.5-200.0 nmol/L This test was developed and its performance characteristics determined by [facility]. It has not been cleared or approved by the Food and Drug Administration. Performed at: [address] [id number] Telesales Manager: Toni Guidry MD, Phone: [phone] Performing Lab: see note LC - [facility] LB AMYLASE Reviewed date:07/04/2025 12:56:51 PM Interpretation: Performing Lab: Notes/Report: [facility] , Amylase 173 25-115 U/L Performing Lab: see note ML - [facility] LB CBC AUTO DIFF Reviewed date:07/04/2025 12:56:51 PM Interpretation: Performing Lab: Notes/Report: [facility] , White Blood Count 4.7 4.0-11.0 10 3/uL Red Blood Count 4.93 4.20-5.40 10 6/uL Hemoglobin 14.7 12.0-16.0 g/dL Hematocrit 44.7 36.0-48.0 % Mean Corpuscular Volume 90.7 81.0-99.0 fL Mean Corpuscular Hemoglobin 29.8 26.7-34.0 pg Mean Corpuscular HGB Conc 32.9 29.9-35.2 g/dL Red Cell Distribution Width 13.2 11.0-15.0 % Platelet Count 205 150-450 10 3/uL Mean Platelet Volume 9.3 9.5-13.5 fL Neutrophils Percent Auto 60.3 43.0-75.0 % Lymphocytes Percent Auto 24.6 20.5-60.0 % Monocytes Percent Auto 9.4 1.7-12.0 % Eosinophils Percent Auto 5.1 0.9-7.0 % Basophils Percent Auto 0.4 0.2-2.0 % Immature Granulocytes Pct Auto 0.2 0.0-0.5 % Neutrophils Absolute Auto 2.8 1.4-6.5 10 3/uL Lymphocytes Absolute Auto 1.2 1.2-3.8 10 3/uL Monocytes Absolute Auto 0.4 0.3-0.8 10 3/uL Eosinophils Absolute Auto 0.2 0.0-0.7 10 3/uL Basophils Absolute Auto 0.0 0.0-0.1 10 3/uL Immature Granulocytes Abs Auto 0.01 0.00-0.03 10 3/uL Performing Lab: see note ML - [facility] LB FERRITIN Reviewed date:07/08/2025 06:00:19 PM Interpretation: Performing Lab: Notes/Report: [facility] , Ferritin 36.0 8.0-252.0 ng/mL Performing Lab: see note ML - [facility] LB IRON AND TIBC Reviewed date:07/04/2025 12:56:51 PM Interpretation: Performing Lab: Notes/Report: [facility] , Iron 85.0 50.0-170.0 ug/dL Total Iron Binding Capacity 364.0 250.0-450.0 ug/dL Percent Iron Saturation 23.4 Performing Lab: see note ML - [facility] LB LIPASE Reviewed date:07/04/2025 12:56:51 PM Interpretation: Performing Lab: Notes/Report: [facility] , Lipase 389.0 16.0-77.0 U/L Performing Lab: see note ML - [facility] LB PROF 14(COMP METB) Reviewed date:07/04/2025 12:56:51 PM Interpretation: Performing Lab: Notes/Report: [facility] , Sodium 140 136-145 mmol/L Potassium 3.9 3.5-5.1 mmol/L Chloride 103 98-107 mmol/L Carbon Dioxide 31.8 21.0-32.0 mmol/L Anion Gap 9.1 Glucose 106 74-106 mg/dL Blood Urea Nitrogen 17.0 7.0-18.0 mg/dL Creatinine 0.67 0.55-1.02 mg/dL Estimated GFR ( [place] >60 >=60 mL/min/1.73m 2 Estimated GFR (Non- [place] >60 >=60 mL/min/1.73m 2 BUN Creatinine Ratio 25.4 Calcium 9.5 8.5-10.1 mg/dL Bilirubin Total 0.4 0.2-1.0 mg/dL Aspartate Amino Transferase 17 15-37 U/L Alanine Aminotransferase 37 14-59 U/L Alkaline Phosphatase 114 46-116 U/L Total Protein 7.1 6.4-8.2 g/dL Albumin Level 3.5 3.4-5.0 g/dL Globulin 3.6 Albumin Globulin Ratio 1.0 Performing Lab: see note [facility] TSH Reviewed date:07/04/2025 12:56:51 PM Interpretation: Performing Lab: Notes/Report: [facility] , Thyroid Stimulating Hormone 2.347 0.358-3.740 uIU/mL Performing Lab: see note [facility] VITAMIN D 25 [place] Reviewed date:07/08/2025 06:00:19 PM Interpretation: Performing Lab: Notes/Report: [facility] , Vitamin D 64.9 <20 ng/mL Vit D deficient 20-<30 ng/mL Vit D insufficient 30-100 ng/mL Vit D sufficient >100 ng/mL Potential Toxicity Performing Lab: see note [facility] Vitamin B12 Reviewed date:07/05/2025 02:23:19 PM Interpretation: Performing Lab: Notes/Report: [facility] , Vitamin B12 >2000 232-1245 pg/mL Performed at: [address] [id number] Telesales Manager: Afshin Martinez PhD, Phone: [phone] Performing Lab: see note [facility] Folate (Folic Acid), Serum Reviewed date:07/06/2025 12:50:56 PM Interpretation: Performing Lab: Notes/Report: [facility] , Folate (Folic Acid), Serum >20.0 >3.0 ng/mL A serum folate concentration of less than 3.1 ng/mL is considered to represent clinical deficiency. Performed at: [facility] [address] [id number] Telesales Manager: Afshin Martinez PhD, Phone: [phone] Performing Lab: see note [facility] AMYLASE Reviewed date:07/07/2025 04:43:54 PM Interpretation: Performing Lab: Notes/Report: [facility] , Amylase 264 25-115 U/L Performing Lab: see note - [facility] CBC AUTO DIFF Reviewed date:07/07/2025 04:43:54 PM Interpretation: Performing Lab: Notes/Report: [facility] , White Blood Count 6.3 4.0-11.0 10 3/uL Red Blood Count 4.98 4.20-5.40 10 6/uL Hemoglobin 14.9 12.0-16.0 g/dL Hematocrit 44.6 36.0-48.0 % Mean Corpuscular Volume 89.6 81.0-99.0 fL Mean Corpuscular Hemoglobin 29.9 26.7-34.0 pg Mean Corpuscular HGB Conc 33.4 29.9-35.2 g/dL Red Cell Distribution Width 13.2 11.0-15.0 % Platelet Count 235 150-450 10 3/uL Mean Platelet Volume 9.2 9.5-13.5 fL Neutrophils Percent Auto 49.1 43.0-75.0 % Lymphocytes Percent Auto 34.1 20.5-60.0 % Monocytes Percent Auto 11.5 1.7-12.0 % Eosinophils Percent Auto 4.6 0.9-7.0 % Basophils Percent Auto 0.5 0.2-2.0 % Immature Granulocytes Pct Auto 0.2 0.0-0.5 % Neutrophils Absolute Auto 3.1 1.4-6.5 10 3/uL Lymphocytes Absolute Auto 2.2 1.2-3.8 10 3/uL Monocytes Absolute Auto 0.7 0.3-0.8 10 3/uL Eosinophils Absolute Auto 0.3 0.0-0.7 10 3/uL Basophils Absolute Auto 0.0 0.0-0.1 10 3/uL Immature Granulocytes Abs Auto 0.01 0.00-0.03 10 3/uL Performing Lab: see note ML - [facility] LB LIPASE Reviewed date:07/07/2025 04:43:54 PM Interpretation: Performing Lab: Notes/Report: [facility] , Lipase 402.0 16.0-77.0 U/L Performing Lab: see note ML - [facility] LB PROF 14(COMP METB) Reviewed date:07/07/2025 04:43:54 PM Interpretation: Performing Lab: Notes/Report: [facility] , Sodium 136 136-145 mmol/L Potassium 4.0 3.5-5.1 mmol/L Chloride 101 98-107 mmol/L Carbon Dioxide 29.4 21.0-32.0 mmol/L Anion Gap 9.6 Glucose 87 74-106 mg/dL Blood Urea Nitrogen 25.0 7.0-18.0 mg/dL Creatinine 0.59 0.55-1.02 mg/dL Estimated GFR ( [place] >60 >=60 mL/min/1.73m 2 Estimated GFR (Non- [place] >60 >=60 mL/min/1.73m 2 BUN Creatinine Ratio 42.4 Calcium 9.9 8.5-10.1 mg/dL Bilirubin Total 0.4 0.2-1.0 mg/dL Aspartate Amino Transferase 21 15-37 U/L Alanine Aminotransferase 36 14-59 U/L Alkaline Phosphatase 122 46-116 U/L Total Protein 7.4 6.4-8.2 g/dL Albumin Level 3.8 3.4-5.0 g/dL Globulin 3.6 Albumin Globulin Ratio 1.1 Performing Lab: see note ML - [facility] LB CT abdomen pelvis w con Reviewed date:07/07/2025 04:43:54 PM Interpretation: Performing Lab: Notes/Report: Source Facility: [facility]-[address] [place] [address] CT Scan Report Signed Patient: JOSE ALBERTO SALEEM MR#: [id number] : 1965 Acct:[id number] Age/Sex: 60 / F ADM Date: 07/06/25 Loc: ER Attending Dr: Ordering Physician: Alex Blount Date of Service: 07/06/25 Procedure(s): CT abdomen pelvis w con Accession Number(s): [id number] cc: Ashley Dejesus M.D. [place] [id number] Patient Name: JOSE ALBERTO SALEEM MRN: [id number]:[id number] date: 1965 Sex: F Assigned Patient Location: ER Current Patient Location: ER Accession/Order Number: [id number] Exam Date: 07/06/2025 19:48 Report Date: 07/06/2025 20:28 At the request of: ALEX BLOUNT MD Procedure: CT abdomen pelvis w con CT ABDOMEN AND PELVIS WITH INTRAVENOUS CONTRAST: CLINICAL HISTORY: pancreatitis COMPARISON: CT abdomen pelvis 09/30/2024 TECHNIQUE: Spiral images were obtained through the abdomen and pelvis following the administration of intravenous contrast. This CT exam was performed using one or more following dose reduction techniques: Automated exposure control, adjustment of the mA and/or kV according to patient size, or use of iterative reconstruction technique. FINDINGS: Lung Bases: [Hypoventilatory changes.] Organs:Cholecystectomy. Right renal cyst. Liver, spleen, adrenals, kidneys, and pancreas unremarkable. No peripancreatic inflammatory changes or loculated fluid collections. Common bile duct 7 mm. Likely chronic finding.[ GI: Mild to moderate stool burden throughout the colon.[No bowel obstruction. Minimal scattered colonic diverticulosis. Evidence of gastric bypass Pelvis:[Bladder unremarkable. Uterus unremarkable. No adnexal mass.] Peritoneum/Retroperitoneum:Moderate plaque nonaneurysmal aorta.[No free air or free fluid no bulky adenopathy. Abd wall/Bones:Multilevel degenerative changes of involving the lumbar facet joints.[ CT/CT abdomen pelvis w con IMPRESSION: Negative acute inflammatory process or bowel obstruction. Impression dictated by: Dylon Alejandra M.D. 07/06/2025 8:28 PM Dictation Location: [place] [address] Electronically authenticated by: [id number] Y Date: 07/06/2025 20:28 Dictated By: Dylon Alejandra M.D. Signed By: 07/06/252030 DD/ 27 TD/TT: Benzene Still Utility Operator: CBC AUTO DIFF Reviewed date:07/07/2025 04:43:54 PM Interpretation: Performing Lab: Notes/Report: [facility] , White Blood Count 5.5 4.0-11.0 10 3/uL Red Blood Count 4.55 4.20-5.40 10 6/uL Hemoglobin 13.4 12.0-16.0 g/dL Hematocrit 41.5 36.0-48.0 % Mean Corpuscular Volume 91.2 81.0-99.0 fL Mean Corpuscular Hemoglobin 29.5 26.7-34.0 pg Mean Corpuscular HGB Conc 32.3 29.9-35.2 g/dL Red Cell Distribution Width 13.3 11.0-15.0 % Platelet Count 185 150-450 10 3/uL Mean Platelet Volume 8.5 9.5-13.5 fL Neutrophils Percent Auto 46.0 43.0-75.0 % Lymphocytes Percent Auto 38.2 20.5-60.0 % Monocytes Percent Auto 10.3 1.7-12.0 % Eosinophils Percent Auto 5.1 0.9-7.0 % Basophils Percent Auto 0.2 0.2-2.0 % Immature Granulocytes Pct Auto 0.2 0.0-0.5 % Neutrophils Absolute Auto 2.5 1.4-6.5 10 3/uL Lymphocytes Absolute Auto 2.1 1.2-3.8 10 3/uL Monocytes Absolute Auto 0.6 0.3-0.8 10 3/uL Eosinophils Absolute Auto 0.3 0.0-0.7 10 3/uL Basophils Absolute Auto 0.0 0.0-0.1 10 3/uL Immature Granulocytes Abs Auto 0.01 0.00-0.03 10 3/uL Performing Lab: see note ML - [facility] LB LIPASE Reviewed date:07/07/2025 04:43:54 PM Interpretation: Performing Lab: Notes/Report: [facility] , Lipase 100.0 16.0-77.0 U/L Performing Lab: see note ML - [facility] LB LIPID PROFILE Reviewed date:07/07/2025 04:43:54 PM Interpretation: Performing Lab: Notes/Report: [facility] , Triglycerides 232 <=150 mg/dL Cholesterol 207 <=200 mg/dL HDL Cholesterol 41 40-60 mg/dL > or =60 mg/dl - LOW CARDIOVASCULAR RISK <40 mg/dl - HIGH CARDIOVASCULAR RISK LDL Cholesterol Calculated 120.0 <100 mg/dl OPTIMAL 100-129 mg/dl NEAR OR ABOVE OPTIMAL 130-159 mg/dl BORDERLINE HIGH 160-189 mg/dl HIGH >190 mg/dl VERY HIGH VLDL CHOLESTEROL 46.4 Chol HDL Ratio 5.0 3.3 - 4.4 LOW RISK 4.4 - 7.1 AVERAGE RISK 7.1 - 11.0 MODERATE RISK >11.0 HIGH RISK Performing Lab: see note ML - [facility] LB MAGNESIUM Reviewed date:07/07/2025 04:43:54 PM Interpretation: Performing Lab: Notes/Report: [facility] , Magnesium 2.3 1.8-2.4 mg/dL Performing Lab: see note ML - [facility] LB PHOSPHORUS Reviewed date:07/07/2025 04:43:54 PM Interpretation: Performing Lab: Notes/Report: [facility] , Phosphorus 4.8 2.6-4.7 mg/dL Performing Lab: see note ML - [facility] LB PROF 14(COMP METB) Reviewed date:07/07/2025 04:43:54 PM Interpretation: Performing Lab: Notes/Report: [facility] , Sodium 141 136-145 mmol/L Potassium 4.3 3.5-5.1 mmol/L Chloride 106 98-107 mmol/L Carbon Dioxide 32.8 21.0-32.0 mmol/L Anion Gap 6.5 Glucose 97 74-106 mg/dL Blood Urea Nitrogen 20.0 7.0-18.0 mg/dL Creatinine 0.73 0.55-1.02 mg/dL Estimated GFR ( [place] >60 >=60 mL/min/1.73m 2 Estimated GFR (Non- Fl[place] >60 >=60 mL/min/1.73m 2 BUN Creatinine Ratio 27.4 Calcium 8.6 8.5-10.1 mg/dL Bilirubin Total 0.3 0.2-1.0 mg/dL Aspartate Amino Transferase 16 15-37 U/L Alanine Aminotransferase 28 14-59 U/L Alkaline Phosphatase 97 46-116 U/L Total Protein 6.0 6.4-8.2 g/dL Albumin Level 3.1 3.4-5.0 g/dL Globulin 2.9 Albumin Globulin Ratio 1.1 Performing Lab: see note ML - [facility] LB UA Micro, reflex to culture Reviewed date:07/07/2025 06:53:30 PM Interpretation: Performing Lab: Notes/Report: [facility] , Color Urine LT YELLOW YELLOW Clarity Urine CLEAR CLEAR Specific [place] Urine <=1.005 1.005-1.025 pH Urine 5.5 5.0-9.0 Protein Urine NEGATIVE NEG/TRACE mg/dL Glucose Urine UA NEGATIVE NEGATIVE mg/dL Bilirubin Urine NEGATIVE NEGATIVE Ketones Urine NEGATIVE NEGATIVE mg/dL Blood Urine NEGATIVE NEGATIVE Nitrite Urine NEGATIVE NEGATIVE Urobilinogen Urine 0.2 0.2-1.0 EU/dL Leukocyte Esterase Urine NEGATIVE NEGATIVE WBC Urine 2-5 NONE SEEN #/HPF RBC Urine NONE SEEN 0-2 #/HPF Bacteria Urine TRACE NONE SEEN #/HPF Mucus Urine NONE SEEN NONE SEEN Squamous Epithelial Cell Urine RARE NONE/RARE #/LPF Crystals Seen? None Seen None Seen #/HPF Amorphous Sediment Urine RARE Cast Seen? NONE SEEN NONE SEEN #/LPF Urine Culture Indicated NO Performing Lab: see note ML - [facility] LB ECG 12 lead Reviewed date:07/07/2025 04:43:54 PM Interpretation: Performing Lab: Notes/Report: Source Facility: [facility]-[address] [place] [address] [place] [address] Electrocardiograph Report Signed Patient: JOSE ALBERTO SALEEM MR#: [id number] : 1965 Acct:[id number] Age/Sex: 60 / F ADM Date: 07/06/25 Loc: MD 204- Attending Dr: David Wang M.D. Ordering Physician: David Wang M.D. 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: : 1965 Requested By: [id number] Order Number: [id number] Reading MD: DIEGO ALFARO Measurements Intervals Provencal Rate: 58 P: 77 ME: 156 QRS: -50 QRSD: 100 T: -15 QT: 457 QTc: 452 Interpretive Statements SINUS BRADYCARDIA LEFT ANTERIOR FASCICULAR BLOCK [QRS AXIS <= -45, QR IN I, RS IN II] POSSIBLE ANTERIOR MYOCARDIAL INFARCTION [30 ms Q WAVE IN V3/V4, OR R < 0.2 mV IN V4], OF INDETERMINATE AGE INTERPRETATION BASED ON A DEFAULT AGE OF 40 YEARS Compared to ECG 09/30/2024 17:38:42 Left anterior fascicular block now present Sinus rhythm no longer present Left-axis deviation no longer present Myocardial infarct finding still present Electronically Signed On 07-07-2025 12:58:03 EDT by DIEGO ALFARO Dictated By: Diego Alfaro M.D. Signed By: 07/07/25 1258 07/07/25 1258 DD/ 0538 TD/TT: Benzene Still Utility Operator: JAQUELINE Reviewed date:07/08/2025 12:28:15 PM Interpretation: Performing Lab: Notes/Report: [facility] , Lipase 43.0 16.0-77.0 U/L Performing Lab: see note - [facility] LB Vitamin B12 Reviewed date:05/07/2025 10:15:53 PM Interpretation: Performing Lab: Notes/Report: [facility] , Vitamin B12 7585 491-3706 pg/mL Performed at: [facility] [address] [id number] Telesales Manager: Afshin Martinez PhD, Phone: [phone] Performing Lab: see note - [facility] LB VITAMIN D 25 [place] Reviewed date:05/06/2025 12:42:14 PM Interpretation: Performing Lab: Notes/Report: [facility] , Vitamin D 60.9 <20 ng/mL Vit D deficient 20-<30 ng/mL Vit D insufficient 30-100 ng/mL Vit D sufficient >100 ng/mL Potential Toxicity Performing Lab: see note [facility] LB PROF 14(COMP METB) Reviewed date:05/06/2025 12:42:14 PM Interpretation: Performing Lab: Notes/Report: [facility] , Sodium 140 136-145 mmol/L Potassium 4.1 [...] 1.0 Performing Lab: see note ML - [facility] LB IRON AND TIBC Reviewed date:05/06/2025 12:42:14 PM Interpretation: Performing Lab: Notes/Report: [facility] , Iron 92.0 50.0-170.0 ug/dL Total Iron Binding Capacity 370.0 250.0-450.0 ug/dL Percent Iron Saturation 24.9 Performing Lab: see note ML - [facility] LB FOLATE Reviewed date:05/06/2025 12:42:14 PM Interpretation: Performing Lab: Notes/Report: [facility] , Folate 48.70 8.60-58.90 ng/mL Performing Lab: see note ML - [facility] LB FERRITIN Reviewed date:05/06/2025 12:42:14 PM Interpretation: Performing Lab: Notes/Report: [facility] , Ferritin 40.0 8.0-252.0 ng/mL Performing Lab: see note ML - [facility] LB LIPASE Reviewed date:01/04/2025 03:44:31 PM Interpretation: Performing Lab: Notes/Report: [facility] , Lipase 569.0 16.0-77.0 U/L Performing Lab: see note ML - [facility] LB PROF 14(COMP METB) Reviewed date:01/04/2025 03:44:31 PM Interpretation: Performing Lab: Notes/Report: [facility] , Sodium 141 136-145 mmol/L Potassium [...] Performing Lab: see note ML - [facility] LB CBC AUTO DIFF Reviewed date:01/04/2025 03:44:31 PM Interpretation: Performing Lab: Notes/Report: [facility] , White Blood Count 6.5 4.0-11.0 [...] Performing Lab: see note ML - [facility] LB UA Micro, reflex to culture Reviewed date:01/04/2025 03:44:31 PM Interpretation: Performing Lab: Notes/Report: [facility] , Color Urine LT. YELLOW YELLOW Clarity Urine CLEAR CLEAR Specific [place] Urine 1.010 1.005-1.025 pH Urine 7.5 5.0-9.0 [...] Lab: see note ML - [facility] LB Troponin I High Sensitivity Reviewed date:01/04/2025 03:44:31 PM Interpretation: Performing Lab: Notes/Report: [facility] , Troponin I High Sensitivity 6.1 [...] Lab: see note ML - [facility] LB PROF 14(COMP METB) Reviewed date:10/05/2024 08:20:23 PM Interpretation: Performing Lab: Notes/Report: [facility] , Sodium 141 136-145 mmol/L Potassium [...] Performing Lab: see note ML - [facility] LB LIPASE Reviewed date:10/05/2024 08:20:23 PM Interpretation: Performing Lab: Notes/Report: [facility] , Lipase 42.0 16.0-77.0 U/L Performing Lab: see note ML - [facility] LB PROF 14(COMP METB) Reviewed date:10/05/2024 08:20:23 PM Interpretation: Performing Lab: Notes/Report: [facility] , Sodium 143 136-145 mmol/L Potassium [...] Performing Lab: see note ML - [facility] LB LIPASE Reviewed date:10/05/2024 08:20:23 PM Interpretation: Performing Lab: Notes/Report: [facility] , Lipase 168.0 16.0-77.0 U/L Performing Lab: see note ML - [facility] LB CBC AUTO DIFF Reviewed date:10/05/2024 08:20:23 PM Interpretation: Performing Lab: Notes/Report: [facility] , White Blood Count 5.4 4.0-11.0 [...] Performing Lab: see note ML - [facility] LB LIPASE Reviewed date:10/01/2024 03:36:44 PM Interpretation: Performing Lab: Notes/Report: [facility] , Lipase 227.0 16.0-77.0 U/L Performing Lab: see note ML - [facility] LB Blood Culture 1 Reviewed date:10/06/2024 08:37:09 PM Interpretation: Performing Lab: Notes/Report: [facility] , Blood Culture 1 See Below For Report Blood Culture 1 NG5D NO GROWTH AT 5 DAYS. Performing Lab: see note ML - [facility] LB Prothrombin Time INR Reviewed date:10/01/2024 03:36:44 PM Interpretation: Performing Lab: Notes/Report: [facility] , Prothrombin Time 10.8 9.0-11.6 sec INR 1.02 DESIRED INR: 2.0-3.0 CONDITIONS NOT LISTED BELOW 2.5-3.5 FOR PROSTHETIC HEART VALVE REPLACEMENT 2.5-3.5 RECURRENT THROMBOSIS Performing Lab: see note ML - [facility] LB PTT Reviewed date:10/01/2024 03:36:44 PM Interpretation: Performing Lab: Notes/Report: [facility] , Partial Thromboplastin Time 30.2 22.3-36.2 sec Performing Lab: see note ML - [facility] PROF CHEM 8 (BAS METB) Reviewed date:10/01/2024 03:36:44 PM Interpretation: Performing Lab: Notes/Report: [facility] , Sodium 140 136-145 mmol/L Potassium [...] Performing Lab: see note ML - [facility] MAGNESIUM Reviewed date:10/01/2024 03:36:44 PM Interpretation: Performing Lab: Notes/Report: [facility] , Magnesium 2.3 1.8-2.4 mg/dL Performing Lab: see note ML - [facility] LB LIVER PROFILE Reviewed date:10/01/2024 03:36:44 PM Interpretation: Performing Lab: Notes/Report: [facility] , Bilirubin Total 0.3 0.2-1.0 mg/dL Bilirubin Direct 0.1 0.0-0.2 mg/dL Aspartate Amino Transferase 29 15-37 U/L Alanine Aminotransferase 51 14-59 U/L Alkaline Phosphatase 114 46-116 U/L Total Protein 7.3 6.4-8.2 g/dL Albumin Level 3.8 3.4-5.0 g/dL Globulin 3.5 Albumin Globulin Ratio 1.1 Performing Lab: see note ML - [facility] LB LIPID PROFILE Reviewed date:10/01/2024 03:36:44 PM Interpretation: Performing Lab: Notes/Report: [facility] , Triglycerides 95 <=150 mg/dL Cholesterol [...] Lab: see note ML - [facility] LB LIPASE Reviewed date:10/01/2024 03:36:44 PM Interpretation: Performing Lab: Notes/Report: [facility] , Lipase 163.0 16.0-77.0 U/L Performing Lab: see note ML - [facility] LB LACTATE or LACTIC ACID Reviewed date:10/01/2024 03:36:44 PM Interpretation: Performing Lab: Notes/Report: [facility] , Lactate/Lactic Acid 1.0 0.4-2.0 mmol/L Performing Lab: see note ML - [facility] LB AMYLASE Reviewed date:10/01/2024 03:36:44 PM Interpretation: Performing Lab: Notes/Report: [facility] , Amylase 234 25-115 U/L Performing Lab: see note ML - [facility] LB PROF 14(COMP METB) Reviewed date:09/29/2024 08:35:22 PM Interpretation: Performing Lab: Notes/Report: [facility] , Sodium 143 136-145 mmol/L Potassium [...] 1.1 Performing Lab: see note ML - [facility] LIPID PROFILE Reviewed date:09/29/2024 08:35:22 PM Interpretation: Performing Lab: Notes/Report: [facility] , Triglycerides 205 <=150 mg/dL Cholesterol [...] Lab: see note ML - [facility] LB LIPASE Reviewed date:09/29/2024 08:35:22 PM Interpretation: Performing Lab: Notes/Report: [facility] , Lipase 737.0 16.0-77.0 U/L Performing Lab: see note ML - [facility] LB AMYLASE Reviewed date:09/29/2024 08:35:22 PM Interpretation: Performing Lab: Notes/Report: [facility] , Amylase 295 25-115 U/L Performing Lab: see note ML - [facility] LB Vitamin B12 Reviewed date:08/06/2024 09:18:02 PM Interpretation: Performing Lab: Notes/Report: [facility] , Vitamin B12 >2000 232-1245 pg/mL Performed at: [address] [id number] Telesales Manager: Afshin Martinez PhD, Phone: [phone] Performing Lab: see note [facility] Vitamin B1 (Thiamine), Blood Reviewed date:08/09/2024 04:01:33 PM Interpretation: Performing Lab: [facility]/Report[facility] B1 (Thiamine), Blood 180.1 66.5-200.0 nmol/L This test was developed and its performance characteristics determined by [facility]. It has not been cleared or approved by the Food and Drug Administration. Performed at: [address] [id number] Telesales Manager: Toni Guidry MD, Phone: [phone] Performing Lab: see note [facility] VITAMIN D 25 [place] Reviewed date:08/05/2024 06:07:34 PM Interpretation: Performing Lab: Notes/Report: [facility] , Vitamin D 69.2 <20 ng/mL Vit D deficient 20-<30 ng/mL Vit D insufficient 30-100 ng/mL Vit D sufficient >100 ng/mL Potential Toxicity Performing Lab: see note - [facility] LB PROF 14(COMP METB) Reviewed date:08/05/2024 03:01:27 PM Interpretation: Performing Lab: Notes/Report: [facility] , Sodium 139 136-145 mmol/L Potassium [...] Lab: see note ML - [facility] LB PHOSPHORUS Reviewed date:08/05/2024 03:01:27 PM Interpretation: Performing Lab: Notes/Report: [facility] , Phosphorus 3.8 2.6-4.7 mg/dL Performing Lab: see note ML - [facility] LB MAGNESIUM Reviewed date:08/05/2024 03:01:27 PM Interpretation: Performing Lab: Notes/Report: [facility] , Magnesium 2.1 1.8-2.4 mg/dL Performing Lab: see note ML - [facility] LB IRON AND TIBC Reviewed date:08/05/2024 06:07:34 PM Interpretation: Performing Lab: Notes/Report: [facility] , Iron 73.0 50.0-170.0 ug/dL Total Iron Binding Capacity 348.0 250.0-450.0 ug/dL Percent Iron Saturation 21.0 Performing Lab: see note ML - [facility] LB FOLATE Reviewed date:08/05/2024 06:07:34 PM Interpretation: Performing Lab: Notes/Report: [facility] , Folate 34.40 8.60-58.90 ng/mL Performing Lab: see note ML - [facility] LB FERRITIN Reviewed date:08/05/2024 06:07:34 PM Interpretation: Performing Lab: Notes/Report: [facility] , Ferritin 42.0 8.0-252.0 ng/mL Performing Lab: see note ML - [facility] LB CBC AUTO DIFF Reviewed date:08/05/2024 02:30:38 PM Interpretation: Performing Lab: Notes/Report: [facility] , White Blood Count 4.5 4.0-11.0 [...] Lab: see note ML - [facility] LB Reason For Referral Diagnosis 1 Chronic pancreatitis (K86.1) Referral Organization [facility] Referring Provider First Name Deacon Referring Provider Last Name Anjelica Referring Provider Speciality [facility] wilfrid Referred Provider Chauncey Cooper Referred Provider Specialty Gastroentero logy Referral Priority Routine Medications Medication SIG (Take, Route, Frequency, Duration) Notes Start Date End Date Status hydroCHLOROthiazide 12.5 MG Oral; Durati on: 90 Days Active RABEprazole Sodium 20 MG TAKE 1 TABLET T WICE A DAY; Duration: 90 days Active Fluticasone Propionate 50 MCG/ACT INSTILL 1 SPRAY IN EACH NOSTIRL TWICE A DAY.; Duration: 90 days Active PreserVision AREDS A ctive oxyCODONE HCl 5 MG Oral; Duration: 6 Days Active Estradiol Active Pancrelipase (Wgz-Gemu-Qypr) 50579-43473 UNIT 1 capsule Orally ac and hs 09/25/2024 Active Diclofenac Sodium 3 % 1 application Externally Twice a day; Duration: 30 days 05/15/2025 Active Ondansetron 4 MG 1 tablet on the tong ue and allow to dissolve Orally qid 07/06/2025 Active hydroCHLOROthiazide 25 MG TAKE 1 TABLET BY MOUTH EVERY MORNING; Duration: 30 Active Hyoscyamine Sulfate 0.125 MG 1-2 tabs SL SL every 4 hrs PRN abd pain 07/06/2025 Active traMADol HCl 50 MG 1 tablet as needed Orally 4 times a day; Duration: 7 days 01/24/2024 Active Tamsulosin HCl 0.4 MG 1 capsule Orally B ID; Duration: 90 days Active Clopidogrel Bisulfate 75 MG 1 tablet Ora lly Once a day 08/27/2024 Active Nystatin 278214 UNIT/GM 1 application Externally Twice a day; Duration: 30 days 11/12/2023 Active Citalopram Hydrobromide 40 MG 1 tablet O rally Once a day; Duration: 30 days Active Nitroglycerin 0.[address] 1 tablet unde r the tongue if needed every 5 minutes for nimco... (REFER TO PRESCRIPTION NOTES). Sublingual; Duration: 30 Days Active Cevimeline HCl 30 MG 1 capsule Orally qi d; Duration: 90 days 02/12/2024 Active Aspirin Low Dose 81 MG Oral; Duration: 9 0 Days Active Mometasone Furoate 0.1 % 1 application Externally BID; Duration: 30 days Thin application to area of rash 05/15/2025 Active Immunizations Vaccine Route Administration Date Status Comme nts Flu, -historic- Novel H1N1-0 9, preservative free Unknown 07/29/2009 Administered Flu, Flucelvax (91985) 2 yrs +, single-dose syringe (5057-0483) Unknown 07/26/2017 Administered Flu, Fluzone (66059) 6 mos+, single-dose syringe/vial (0070-9885) Unknown 06/05/2023 Administered Flu, Unspecified Unknown 06/15/2014 [...] Notes Problem Benign neoplasm of soft tissue (54344669) Benign neoplasm of connective and other soft tissue, 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 Problem Snoring (94567969) Snoring (R06.83) Active conf irmed Problem Right upper quadrant pain (743782239) Right upper quadrant pain (R10.11) Active confirmed Problem Abdominal pain (43264562) Abdominal pain (R10.9) Active confirmed Problem Fatigue (01344661) Fatigue (R53.83) Active conf irmed Problem Hyperlipidemia (57780452) Hyperlipidemia (E78.5) Active confirmed Problem Hyperlipidaemia (01816492) Hyperlipemia (E78.5) Active confirmed Problem Hypertension (19911290) Hypertension (I10) Active confirmed Problem Gastroesophageal reflux disease (815046688) GERD (gastroesophageal reflux disease) (K21.9) Active confirmed Problem Coronary artery disease (80135858) CAD (coronary artery disease) (I25.10) Active confirmed Problem Ischemic cardiomyopathy (253940828) Cardiomyopathy, ischemic (I25.5) Active confirmed Problem Depression (023069698) Depression (F32.9) Active confirmed Problem Essential hypertension (79452849) Benign essential HTN (I10) Active confirmed Problem Hypertriglyceridemia (608174255) Hypertriglyceridemia (E78.1) Active confirmed Problem Arthralgia (05230339) Arthralgia (M25.50) Active confirmed Problem Chronic pancreatitis (536585929) Chronic pancreatitis (K86.1) Active confirmed Problem Essential hypertension (88305473) BP (high blood pressure) (I10) Active confirmed Problem hypercholesterolemia (disorder) (01121573) Hypercholesteremia (E78.00) Active confirmed Problem Hypercholesterolemia (88182414) Hypercholesterolemia (E78.00) Active confirmed Problem Type II diabetes mellitus without complication (183423229) Controlled type 2 diabetes mellitus (E11.9) Active confirmed Problem Acute UTI (urinary tract infection) (894314214) Acute UTI (urinary tract infection) (N39.0) Active confirmed Problem Old myocardial infarction (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) Acute myocardial infarct greater than 3 months ago (I25.2) Active confirmed Problem Acute pancreatitis (790375536) Acute pancreatitis (K85.90) Active confirmed Vital Signs Temperature 97.6 degrees Fahrenheit 02/18/2025 Blood pressure diastolic 78 mm Hg 07/14/2025 Height 63 in 07/14/2025 Blood pressure systolic 140 mm Hg 07/14/2025 Weight 181.0 lbs 07/14/2025 BMI 32.06 kg/m2 07/14/2025 Procedures Procedure Date Ordered Date Performed Result Body Sit e Sleep study - Diagnostic Polysonogram 01/08/2025 N/A Encounters Encounter Location Date Provider Diagnosis [address] [address] 08/27/2024 Deacon Hoy CAD (coronary artery disease) I25.10 ; Hypertriglyceridemia E78.1 and Hypertension I10 [address] [address] 10/07/2024 Deacon Hoy Chronic pancreatitis K86.[address] [address] 01/08/2025 Deacon Hoy Fatigue R53.83 ; Sno ring R06.83 and Chronic pancreatitis K86.[address] [address] 02/18/2025 Deacon Hoy Acute bronchitis, un specified organism J20.[address] [address] 07/06/2025 Deacon Hoy Acute pancreatitis K 85.[address] [address] 07/14/2025 Deacon Hoy GERD (gastroesophage al reflux disease) K21.9 and Acute pancreatitis K85.90 [facility] [address] [place] [address] 08/05/2024 Deacon Anjelica [facility] [address] [place] [address] 08/20/2024 Deacon Gordilloy [facility] [address] [place] [address] 09/25/2024 Deacon Duyy [facility] [address] [place] [address] 09/29/2024 Deacon Gordilloy [facility] [address] [place] [address] 10/03/2024 Deacon Anjelica [facility] [address] [place] [address] 10/07/2024 Deacon Hoy Chronic pancreatitis K86.1 [facility] [address] [place] [address] 11/10/2024 Deacon Anjelica [facility] [address] [place] [address] 11/27/2024 Deacon Hoy Acute pancreatitis K 85.90 [facility] [address] [place] [address] 01/02/2025 Deacon Gordilloy [facility] [address] [place] [address] 02/09/2025 Deacon Anjelica [facility] [address] [place] [address] 03/05/2025 Deacon Hoy Chronic pancreatitis K86.1 [facility] [address] [place] [address] 03/05/2025 Deacon Hoy Chronic pancreatitis K86.1 [facility] [address] [place] [address] 04/16/2025 Deacon Gordilloy [facility] [address] [place] [address] 05/06/2025 Deacon Hoy Fatigue R53.83 [facility] [address] [place] [facility] [place] [address] 05/06/2025 Deacon estefani [facility] [address] [place] [facility] [place] [address] 05/15/2025 Deacon estefani [facility] [address] [place] [facility] [place] [address] 05/15/2025 Deacon Dejesus [facility] [address] [place] [facility] [place] [address] 05/18/2025 Deacon [facility] [address] [place] [facility] [place] [address] 06/11/2025 Deacon estefani [facility] [address] [place] [facility] [place] [address] 07/04/2025 Deacon [facility] [address] [place] [facility] [place] [address] 07/08/2025 Deacon [facility] [address] [place] [facility] [place] [address] 07/08/2025 Deacon Duyestefani [facility] Encounter Date Diagnosis (ICD Code) Assessment Notes Treatment Notes Treatment Clinical Notes Section Notes 07/06/2025 Acute pancreatitis (ICD-10 - K85.90) 07/14/2025 GERD (gastroesophage al reflux disease) (ICD-10 - K21.9) 07/14/2025 Acute pancreatitis (ICD-10 - K85.90) 10/07/2024 Chronic pancreatitis (ICD-10 - K86.1) 11/27/2024 Acute pancreatitis (ICD-10 - K85.90) 03/05/2025 Chronic pancreatitis (ICD-10 - K86.1) 03/05/2025 Chronic pancreatitis (ICD-10 - K86.1) 05/06/2025 Fatigue (ICD-10 - R53.83) 08/27/2024 CAD (coronary artery disease) (ICD-10 - I25.10) 08/27/2024 Hypertriglyceridemia (ICD-10 - E78.1) 10/07/2024 Chronic pancreatitis (ICD-10 - K86.1) referral to Dr Ross 01/08/2025 Snoring (ICD-10 - R06.83) 01/08/2025 Fatigue (ICD-10 - R53.83) 02/18/2025 Acute bronchitis, unspecified organism (ICD-10 - J20.9) Rest and drink more liquids, especially water. You may use a humidifier or vaporizer to help keep the drainage moist. Ubez-vwu-miiuyqx Nasal Saline may help the stuffy and runny nose. Use Ibuprofen and or Tylenol as needed for fever, chills, body aches or pain. Children 5 years old should not be given uobw-xra-ismitir cough and cold medications such as guaifenesin and dextromethorphan. If you're over age 5, you may try juxi-xxu-kqwebdx cold medications such as guaifenesin and dextromethorphan, [...] to the emergency room or call 911 01/08/2025 Chronic pancreatitis (ICD-10 - K86.1) 08/27/2024 [...] GFR 11/27/2024 CMP - Comprehensive Metabolic Panel 0 11/2023 CBC W/AUTO DIFF 01/31/2024 CBC W/AUTO DIFF 11/27/2024 AMYLASE 11/27/2024 AMYLASE 08/27/2024 AMYLASE 07/14/2025 CBC AUTO DIFF 07/14/2025 CRP 07/14/2025 CULTURE URINE 11/12/2023 CULTURE URINE 04/28/2024 LIPASE 08/27/2024 LIPASE 07/14/2025 LIPASE 11/27/2024 LIPID PROFILE 08/27/2024 LIVER PROFILE 11/13/2023 PROF 14(COMP METB) 07/14/2025 PROF 14(COMP METB) 08/27/2024 SED RATE WESTERGREN 07/14/2025 US ABD 04/28/2024 THYROID PANEL (T4/TSH/FREE T3) US abdomen complete 01/24/2024 Next Appt Details Provider Name:Deacon Dejesus, 05:00:00 PM, [address] [place], [address], Insurance Providers Payer Name Payer Address Payer Phone Subscriber Number Group Number Insured Name Patient Relationship to Insured Coverage Start Date Coverage End Date [employer] PPO PLUS LOCAL PLAN [address] [place] [phone] [id number] Jose Alberto Saleem Self - patient [...] transverse carpal ligament- Right, Dr. Mckeon 07/19/2022 Hysteroscopy and D&C 06/18/2023 Gastric Bypass 01/29/2018 Sinus Surgery, Dr. Messer 12/2017 Cysto, Dr. Stoll 04/24/2018 & 018 Hospitalization History Reason Date(Month/Year) Pancreatitis 2024 Pancratitis 2023
--- OUTSIDE RECORDS SUMMARY | 2025-07-14 11:30 | XMS_ITS | Encounter Summary ---
Author Organization [employer] [facility] Address [id number] [address] [place] [address] Care Team Providers Care Waste Machine Operator Name Role Phone Ziggy Dejesus MD Primary Care Provider [phone] Reason for Visit * Reason Comments Med Refill Encounter Details Date Type Department Care Team (Late st Contact Info) Description 09/26/2023 Refill [facility] [address] [place] [phone] Antonia Banda, PA-C [phone] [facility] [address] [place] [phone] [employer] Social History Tobacco Use Types Packs/Day [...] documented as of this encounter Care Teams Waste Machine Operator Relationship Specialty Start Date End Date Ziggy Dejesus MD PCP - General 02/22/17 documented as of this encounter
--- OUTSIDE RECORDS SUMMARY | 2025-07-14 11:30 | XMS_ITS | Encounter Summary ---
Author Organization [employer] [facility] [employer] Address [id number] [address] [place] [address] Care Team Providers Care Deputy Grand Jury Name Role Phone Ziggy Dejesus MD Primary Care Provider [phone] Encounter Details Date Type Department Care Team (Late st Contact Info) Description 08/17/2022 Orders Only [facility] [address] [place] [phone] Antonia Banda, PA-C [phone] [facility] [address] [place] [address] Social History Tobacco Use Types Packs/Day Years [...] documented as of this encounter Care Teams Deputy Grand Jury Relationship Specialty Start Date End Date Ziggy Dejesus MD PCP - General 02/22/17 documented as of this encounter
--- OUTSIDE RECORDS SUMMARY | 2025-07-14 11:30 | XMS_ITS | Clinical Summary ---
Author Organization [facility] Address [address] [place] [address] Care Team Providers Care Hot Bread Baker Name Role Phone Unavailable Primary Care Provider Unavailabl e Encounters Date Type Department Care Team Description 06/18/2025 Telephone [facility] [address] [place], [place] [id number] Mirian Pitts Outside Medical Records Request from [...] PM EDT Office Visit [facility] [place] [address] [place] [address] Ramiro Britton MD [address] [place] [address] Health Maintenance Due Date Last Done [...] patient's age to complete this topic Insurance [facility] PPO POS
--- OUTSIDE RECORDS SUMMARY | 2025-07-14 11:30 | XMS_ITS | Encounter Summary ---
Author Organization [facility] Address [id number] [address] [place] [address] Care Team Providers Care Qualitative Field Project Manager Name Role Phone Ziggy Dejesus MD Primary Care Provider [phone] Reason for Visit * Reason Comments Med Refill Encounter Details Date Type Department Care Team (Late st Contact Info) Description 01/10/2018 Refill [facility] [address] [place] [address] [place] [phone] Antonia Banda, PA-C [address] [facility] [address] [place] [address] S/P nasal septoplasty Social History Tobacco Use [...] status documented in this encounter Care Teams Qualitative Field Project Manager Relationship Specialty Start Date End Date Ziggy Dejesus MD PCP - General 02/22/17 documented as of this encounter
--- OUTSIDE RECORDS SUMMARY | 2025-07-14 11:30 | XMS_ITS | Encounter Summary ---
Author Organization [facility] Address [address] [place] [address] Phone Care Team Providers Care Transition Mgr Rn Name Role Phone Ziggy Dejesus MD Primary Care Provider [phone] Cindy Stoll EXCELSIOR MACHINE TENDER-SPANNER OPERATOR Unavailable [phone] Anita Hammonds RN Unavailable Unavailable Encounter Details Date Type Department Care Team (Late st Contact Info) Description 09/28/2021 Orders Only [facility] [address] [place] [address] Conversion, Onbase Social History Tobacco Use Types [...] Description 08/18/2025 11:20 AM EST Office Visit [facility] [address] [facility] [address] [place] [phone] Celso Garibay DO [address] [facility] [address] [place] [address] Scheduled Orders Name Type Priority Associated Diagnoses Orde r Schedule OUTSIDE LAB SCAN Lab Ordered: 09/28/2021 documented as of this encounter Visit Diagnoses Not on filedocumented in this encounter Care Teams Transition Mgr Rn Relationship Specialty Start Date End Date Ziggy Dejesus MD [address] [place] [address] PCP - General 08/17/21 Cindy Stoll, EXCELSIOR MACHINE TENDER-SPANNER OPERATOR 7[address] [facility] 2, [facility] [address] [place] [address] PCP - Karen LANEO PCP 01/29/22 06/30/22 Anita Hammonds, outreach analystSole Stitcher Hand 08/22/24 10/03/24 documented as of this encounter
--- OUTSIDE RECORDS SUMMARY | 2025-07-14 11:30 | XMS_ITS | Encounter Summary ---
Author Organization [facility] Address [id number] [address] [place] [address] Care Team Providers Care Armature Bander Name Role Phone Ziggy Dejesus MD Primary Care Provider [phone] Reason for Visit * Reason Onset Date Comments Med Refill 09/26/2017 Encounter Details Date Type Department Care Team (Late st Contact Info) Description 09/26/2017 Refill [facility] [address] [place] [address] [place] [phone] Alisia Bazzi RMA Social History Tobacco Use [...] on filedocumented in this encounter Care Teams Armature Bander Relationship Specialty Start Date End Date Ziggy Dejesus MD PCP - General 02/22/17 documented as of this encounter
--- OUTSIDE RECORDS SUMMARY | 2025-07-14 11:30 | XMS_ITS | Encounter Summary ---
Author Organization [employer] Address [id number] [address] [place] [address] Care Team Providers Care Shipping Assistant Name Role Phone Ziggy Dejesus MD Primary Care Provider [phone] Encounter Details Date Type Department Care Team (Late st Contact Info) Description 06/28/[address] [facility] [address] [place] [phone] Jennifer Peng RMA Social History Tobacco Use [...] documented as of this encounter Care Teams Shipping Assistant Relationship Specialty Start Date End Date Ziggy Dejesus MD PCP - General 02/22/17 documented as of this encounter
--- OUTSIDE RECORDS SUMMARY | 2025-07-14 11:30 | XMS_ITS | Encounter Summary ---
Author Organization [facility] Address [address] [place] [address] Care Team Providers Care Ribbon Hand Name Role Phone Ziggy Dejesus MD Primary Care Provider [phone] Reason for Visit * Reason Onset Date Comments Med Refill 05/14/2025 Encounter Details Date Type Department Care Team (Late st Contact Info) Description 05/14/2025 Refill [facility] at [address] [phone] Nicole Locke MA Social History [...] on filedocumented in this encounter Care Teams Ribbon Hand Relationship Specialty Start Date End Date Ziggy Dejesus MD [address] [place] [address] PCP - General 02/18/24 documented as of this encounter
--- OUTSIDE RECORDS SUMMARY | 2025-07-14 11:30 | XMS_ITS | Clinical Summary ---
Author Organization [facility] Address [address] [place] [address] Care Team Providers Care Hat Blocking Operator Name Role Phone Ziggy Dejesus MD Primary Care Provider [phone] Allergies Active Allergy Reactions Criticality Noted Date [...] A DAY. for 90 Active HYDROcodone-acetam inophen ([place]) 5-325 mg tablet 5 Active hyoscyamine (Anaspaz,Levsin) 0.125 mg tablet 2 tablet as needed Orally every 4 hrs PRN abd pain 4 Active ondansetron ODT (Zofran-ODT) 4 mg disintegrating tablet 5 Active hydroCHLOROthiazid e (HYDRODiuril) 25 mg tablet 5 Active pancrelipase, Kkh-Mizt-Zege, (Creon) 12,000-38,000 -60,000 unit capsuleIndications :Pancreatic insufficiency 1 capsule before snack. 90 capsule 5 Active pancrelipase, Rhg-Yubh-Efzd, (Creon) 36,000-114,000- 180,000 unit capsule,delayed release(DR/EC) capsuleIndications [...] Xerostomia 02/26/2024 Atherosclerosis of coronary artery of [place] heart without angina pectoris 08/09/2023 Essential hypertension, [...] Type Department Care Team Description 05/19/2025 Telephone [facility] Endoscopy [address] [place] [phone] Gisela Arellano, LUCIEN 05/19/2025 Orders Only [facility] [address] [place] [address] [place] [phone] Roberto Watson MD Pancreatic insufficiency 05/14/2025 Telephone [facility]ology [address] [place] [address] Nicole Locke MA 05/14/2025 Refill [facility] [address] [place] [address] Nicole Locke MA 05/14/2025 Telephone [facility] [address] [place] [address] [place] [phone] Roberto Watson MD 05/14/2025 Telephone [facility] [address] [place] [address] [place] [phone] Gisela Arellano RN 05/08/2025 10:30 AM EDT Follow-Up [facility] [address] [place] [address] Chauncey Cooper MD Pancreatic insufficiency (Primary Dx); Sphincter of Oddi dysfunction from Last 3 Months Immunizations Immunization Administration Dates Next Due Influenza, High Dose Seasona l, Preservative Free 2022 Influenza, Unspecified 06/30/2021 Influenza, injectable, MDCK, preservative free, quadrivalent 06/03/2021,07/26/2017 Influenza, injectable, quadr ivalent, preservative free 06/05/2023,06/16/2022,2020,07/23 Influenza, seasonal, injectable 06/15/2014 Influenza, seasonal, injecta ble, preservative free, 6 moonths & older 06/05/2024,07/03/2015 Novel [id number]-[id number], preservative-free 07/29/2009 Pfizer SARS-CoV-2 Vaccination 01/08/2021 Pneumococcal Polysaccharide PPV23 05/09/2017 Zoster, Recombinant 08/21/2022,06/16/2022 Family History Medical History Relation Name Comments Hyperlipidemia Brother 1 [place] Heart attack Brother 2 Ray Hyperlipidemia Father Munoz Hyperlipidemia Mother [place] Relation Name Status Comments Brother 1 [place] Brother 2 Ray Father Munoz Mother Katharyn [...] - 6.0 % 02/27/2024 2:02 PM EDT [facility] Estimated Average Glucose 100 mg/dL 02/27/2024 2:02 PM EDT [facility] Blood Venous blood specimen / Unknown Venipuncture / Unknown 02/27/2024 12:18 PM EDT 02/27/2024 12:18 PM EDT us Danielle Magallon MD LAB BLOOD ORDERABLES Final Res ult [facility]) [address] [place], [place] [id number] from Last 3 Months or Most Recently Relevant to Health Maintenance Insurance [facility] Care Teams Hat Blocking Operator Relationship Specialty Start Date End Date Ziggy Dejesus MD [address] [facility] [place] [address] PCP - General 02/18/24
--- OUTSIDE RECORDS SUMMARY | 2025-07-14 11:30 | XMS_ITS | Clinical Summary ---
Author Organization [facility] Address [address] [place] [address] Phone Care Team Providers Care Administrative Assistant Data Entry Name Role Phone Ziggy Dejesus MD Primary Care Provider [phone] Allergies Active Allergy Reactions Criticality Noted Date [...] SL tabletIndications :Atherosclerosis of coronary artery of [place] heart without angina pectoris, unspecified vessel or [...] :Atherosclerosis of coronary artery bypass graft of [place] heart without angina pectoris,S/P PTCA (percutaneous transluminal [...] :Atherosclerosis of coronary artery bypass graft of [place] heart without angina pectoris TAKE 1 TABLET BY MOUTH DAILY 90 tablet 3 5 Active Active Problems Problem Noted Date Diagnosed Date Statin intolerance 09/05/2024 BMI 30.0-30.9,adult 09/05/2024 S/P PTCA (percutaneous transluminal coronary ang ioplasty) 09/05/2024 Pancreatitis ([facility]) 08/13/2024 Atherosclerosis of coronary artery of [place] heart without angina pectoris 08/09/2023 Essential hypertension [...] Description 08/18/2025 11:20 AM EST Office Visit [facility] [address] [facility] [address] [place] [address] Celso Garibay, [address] [facility] [address], [address] [place] [address] Health Maintenance Due Date Last Done Comments [...] age to complete this topic Insurance [facility] Care Teams Administrative Assistant Data Entry Relationship Specialty Start Date End Date Ziggy Dejesus MD [address] [place] [address] PCP - General 08/17/21
--- OUTSIDE RECORDS SUMMARY | 2025-07-14 11:30 | XMS_ITS | Clinical Summary ---
Author Organization [facility] Address [id number] [address] [place] [address] Care Team Providers Care Aerodynamics Professor Name Role Phone Ziggy Dejesus MD Primary Care Provider [phone] Allergies Active Allergy Reactions Criticality Noted Date [...] (20 mg total) before bedtime. Active sod cpmtm-utmasa-vzepl z bottle (NEILMED SINUS RINSE COMPLETE) packet [...] (three) times a day with meals. Active qhpubfdn-ngyo-YZ-c alcium &mins (THERAGRAN-M) 9 mg iron-400 mcg [...] 16 g 11 02/14/20 24 Active vit C,S-Pc-vomyn-lutei n-zeaxan (PRESERVISION AREDS-2) 250-90-40-1 mg capsule Take [...] Completed 08/21/2022, Medical Devices Implanted Type Area Universal Winding Machine Operator Device Identifier Shelf Expiration Date Model / Serial / Lot Tissue Alloderm Nonmesh 2x4cm - Sna - [id number] Implanted:Qty : 1 on 09/06/2017 by Devaughn Messer MD PhD at [facility] Graft Nose [employer] 03/20/2018 [id number] / NA / [id number] Lens Iol Ultrasert 17.0d - [id number] - [id number] Implanted:Qty : 1 on 11/14/2018 by Nisha Stoll MD at [facility] Lens Left: Eye [employer] 09/30/2020 [id number] 17.0 / [id number] / NA Sinus Implant Propel Mini - Sna - [id number] Implanted:Qty : 1 on 01/03/2018 by Devaughn Messer MD PhD at [facility] Other Implant Nose [employer] 03/06/2018 [id number] / NA / [id number] Sinus Implant [place] - Sna - [id number] Implanted:Qty : 2 on 01/03/2018 by Devaughn Messer MD PhD at [facility] Stent Bilatera l: Nose [employer] 02/15/2018 [id number] / NA / [id number] Restor Implanted:Qty : 1 on 11/05/2018 by Nisha Stoll MD at [facility] Right: Eye [employer] 11/29/2019 [id number] / [id number] / NA Insurance [facility] Care Teams Aerodynamics Professor Relationship Specialty Start Date End Date Ziggy Dejesus MD PCP - General 02/22/17
--- OUTSIDE RECORDS SUMMARY | 2025-07-14 11:30 | XMS_ITS | Clinical Summary ---
Author Organization [facility] Address [address] [place] [address] Care Team Providers Care Division Officer Weapons Department Name Role Phone Ziggy Dejesus MD Primary Care Provider [phone] Allergies Active Allergy Reactions Criticality Noted Date [...] EDT) Triglyceride 1338(H) 30 - 149 mg/dL [facility] Comment: Patient may be at risk for acute pancreatitis due to marked hypertriglyceridemia. Cholesterol, Total 296(H) 100 - 199 mg/dL [facility] HDL Cholesterol 25(L) >55 mg/dL [facility] VLDL Cholesterol Unable to calculate due to increased Triglycerides . See LDL-Chol, Direct. 6 - 40 mg/dL [facility] LDL Cholesterol, Calculated Unable to calculate due to increased Triglycerides . See LDL-Chol, Direct. 60 - 129 mg/dL [facility] Fasting Time 13 hrs [facility] TC:HDL Ratio 11.84(H) 1.00 - 5.00 [facility] LDL:HDL Ratio Unable to calculate 0.50 - 3.55 [facility] Non HDL Cholesterol 271(H) 90 - 159 mg/dL [facility] Blood specimen (specimen) BLOOD SPECIMEN / Unknown 03/22/2009 12:34 PM EDT us Lupe Park MD LABORATORY Final Resul t [facility] [address] [place] [address] * HGB A1C (03/22/2009 12:34 PM EDT) Hemoglobin A1C 5.6 4.0 - 6.0 % [facility] Blood specimen (specimen) BLOOD SPECIMEN / Unknown 03/22/2009 12:34 PM EDT us Lupe Park MD LABORATORY Final Resul t [facility] [address] [place] [address] from Last 3 Months or Most Recently Relevant to Health Maintenance Insurance [employer] Care Teams Division Officer Weapons Department Relationship Specialty Start Date End Date Ziggy Dejesus MD [address] [place] [address] PCP - General 03/15/06
--- OUTSIDE RECORDS SUMMARY | 2025-07-14 11:33 | XMS_ITS | CCD ---
Author Organization [facility] Care Team Providers Care Supervisor Plasma Name Role Phone UNKNOWN, PROVIDER Unavailable Unavailable ASHLEY GRIGSBY Unavailable Unavailable UNKNOWN, PROVIDER Unavailable Unavailable ASHLEY GRIGSBY Unavailable Unavailable Ashley Grigsby Primary Care Provider Ashley Grigsby Unavailable Unavailable Unavailable Ashley Grigsby MD Primary Care Provider [phone] Unavailable Unavailable Ashley Grigsby Primary Care Physician [...] Unavailable MD Ashley Grigsby Primary Care Provider [phone] MD Evert Bruno Attending Provider Evert Bruno Unavailable MD Ashley Grigsby Primary Care Provider [phone] MD Evert Bruno Attending Provider [phone] Ashley Grigsby MD Primary Care Provider GABY PHILLIPS Admitting Unavail able GABY PHILLIPS Attending Unavail able ASHLEY GRIGSBY M Primary Care Unavailable HOY, ASHLEY M Primary Care Unavailable Ashley Grigsby MD Primary Care Provider [phone] STEPHANIE BERGER Attending Unavailable SEB, ASHLEY M [...] Unavailab Ashley Ruiz MD Primary Care Provider [phone] Lynnette Chapman MD Emergency Provider Donis Arroyo DO Admit Provider Donis Arroyo DO Attending Provider Anita Hammonds RN Unavailable Unavailable Donis Arroyo Admitting Unavailable Bella Stein Referring Unavailable Una Corrales Consulting Unavailable SebAshley M Primary Care Unavailable Kaiser Quijano Attending Unavailable Blas Garibay Consulting Unavailable Arvind Sanchez Consulting Unavailable eClso Ann Consulting Unavail able Nyasia Marquez Consulting Unavailable Samuel Olson Consulting Unavailab Cindy Urias Consulting Unavailable Cierra Artis Consulting Unavailable Durga Guerra Consulting Unavailab Toya Marsh Consulting Unavailable Jackie Daugherty Consulting Unavailable CELSO GARIBAY Attending Unavailable CELSO GARIBAY Referring Unavailable ASHLEY GRIGSBY Primary Care Unavailable CELSO GARIBAY Attending Unavailable ASHLEY GRIGSBY Primary Care Unavailable Ashley Grigsby MD Primary Care Provider [phone] Ashley Grigsby MD Primary Care Provider [phone] CHAUNCEY KIMBLE Referring Unavailable ASHLEY GRIGSBY Primary Care Unavailable RADHA JAIMES Referring Unavailable ASHLEY GRIGSBY Primary Care Unavailable Ashley Grigsby MD Primary Care Provider [phone] NARANDI, ALI Attending Unavailable NAWRAS, ALI Referring [...] 017 Other (See Comments), Shortness of breath [place], [place] (20 sources) Latex; Translations: [LATEX] Propensity to adverse reactions to drug 006 Anaphylaxis, Shortness Of Breath, Anaphylaxis (disorder) [place] (16 sources) Penicillins; Translations: [penicillins] Propensity to adverse reactions to drug 006 Hives, Anaphylaxis (disorder) [place] (3 sources) rosuvastatin Drug Allergy 019 [place] (20 sources) Sulfamethoxazole / Trimethoprim; Translations: [Bactrim TABS] Drug Allergy 019 Hives [place] (11 sources) natural latex rubber Allergy to substance (finding) Shortness of [facility] Work Phone: (11 sources) Penicillins; Translations: [Penicillins] Allergy to drug (finding) Rash [facility] Work Phone: (20 sources) rosuvastatin; Translations: [Crestor TABS] Drug Allergy 017 Elevated liver enzymes level (finding), Other, Other (See Comments) [facility] (16 sources) Sulfonamides (Antibiotic); Translations: [Sulfa Drugs] Allergy to drug (finding) Hives [facility] (20 sources) levoFLOXacin; Translations: [levofloxacin] Drug Allergy 017 Other (See Comments), Candidiasis (disorder) [employer] Phone: (8 sources) Phenazopyridine; Translations: [PHENAZOPYRIDINE HCL] Drug Allergy Nausea And Vomiting [employer] Phone: (3 sources) Simvastatin; Translations: [SIMVASTATIN] Drug Allergy [facility] Phone: (15 sources) Sulfonamides (Antibiotic) Propensity to adverse reactions to drug Other (See Comments), Hives, Shortness of breath [facility] (12 sources) Tobramycin; Translations: [tobramycin] Drug Allergy 023 Eruption of skin (disorder), Rash [facility] (1 source) Baclofen Drug Allergy [facility] (1 source) Latex Drug allergy (disorder) [facility] (5 sources) levoFLOXacin; Translations: [Levaquin] Drug Allergy thrush [facility] (1 source) Penicillins Drug allergy (disorder) [facility] (1 source) rosuvastatin Drug Allergy [facility] (1 source) Sulfonamides (Antibiotic) Drug allergy (disorder) [facility] (11 sources) rosuvastatin; Translations: [ROSUVASTATIN] Drug Allergy 017 Gastrointestinal Upset [facility] (5 sources) Sulfamethoxazole; Translations: [sulfamethoxazole] Drug Allergy 023 Hives, Hives, ([place]) 08/08/2011 [facility] (20 sources) Trimethoprim; Translations: [trimethoprim] Drug Allergy 023 Hives, Hives, ([place]) 08/08/2011 [facility] (6 sources) Fenofibrate; Translations: [FENOFIBRATE] Drug Allergy 009 ([place]) 08/08/2011 [facility] [employer] (3 sources) Penicillin Drug Allergy ([place]) 08/08/2011 [employer] Other (9 sources) Substance with sulfonamide structure and antibacterial mechanism of action (substance) Drug allergy Shortness of breath, Hives [employer] Other (7 sources) Penicillins Propensity to adverse reactions to drug Hives, Rash [facility] [employer] (14 sources) Tobramycin Drug Allergy Rash [facility] [employer] (7 sources) Fenofibrate; Translations: [FENOFIBRATE MICRONIZED] Drug Allergy [facility] (7 sources) Sulfonamides (Antibiotic); Translations: [SULFA (SULFONAMIDE ANTIBIOTICS)] Propensity to adverse reactions to drug (disorder) Unknown Reaction [facility] (1 source) Baclofen Drug Allergy [facility] (1 source) Fenofibrate Drug Allergy [facility] (1 source) Latex Drug allergy (disorder) [facility] (1 source) levoFLOXacin Drug Allergy [facility] (1 source) Penicillins Drug allergy (disorder) [facility] (13 sources) Baclofen Drug Allergy [...] to adverse reactions to drug (disorder) 006 [facility] Repository Medications Current Medications Medication Drug [...] Atherosclerosis of coronary artery bypass graft of [place] heart without angina pectoris , History of [...] daily. 0 Active take [facility] twelve hours Calcium 600 MG [...] Active Start: 11-01-2022 take 4 tablets by [facility] once daily Citalopram 10 mg tablet Active 40 MG PO Daily November 01, 2022 12:00am Start: 11-01-2022 take 10 mg by mouth once daily Citalopram Active 10 MG PO Daily November 01, 2022 1:00am End: 08-13-2024 citalopram (CeleXA) 20 MG ta blet Take 20 mg by mouth Active take 2 tablets by [facility] once daily citalopram (CELEXA) 10 MG tablet Take 2 tablets by mouth daily 0 Active clopidogrel 75 mg oral tablet (11 sources) P2Y12 Platelet Inhibitor Start: 09-05-2024 End: 09-05-2025 take 1 tablet by mouth once daily clopidogrel (Plavix) 75 mg tablet Indications: Atherosclerosis of coronary artery bypass graft of [place] heart without angina pectoris , S/P PTCA [...] mouth two times weekly Vitamin D (Ergocalciferol) 69894 UNIT 1 capsule Orally TWICE a Week [...] 3 weeks, then 3x per week thereafter, [id number], 160, cm, 04/10/24 15:13:00 EDT, Height/Length Dosing, [...] Start: 04-30-2020 fluticasone 0. 05 mg/inh Nasal [place] Refill(s) 0 Start Date: 04/30/20 Status: Ordered Start: 10-24-2017 End: 02-29-2024 take 2 spray(s) nasal route once daily fluticasone (FLONASE) 50 mcg/actuation nasal spray Indications: Chronic pansinusitis Administer 2 sprays into each nostril daily. 16 g 11 10/24/2017 02/29/2024 Discontinued (Duplicate Listing) fluticasone 0.05 mg/inh Nasal [place] (3 sources) Start: 04-30-2020 fluticasone 0.05 mg/inh Nasal [place] Refill(s) 0 Start Date: 04/30/20 Status: Ordered [...] day(s), # 45 tab(s), Refills(s) 3, Pharmacy: [facility], 160, cm, 06/02/22 8:29:00 EDT, [...] Daily, # 90 tab(s), Refills(s) 3, Pharmacy: [facility], 160, cm, 05/27/21 8:19:00 EDT, [...] day(s), # 30 tab(s), Refills(s) 11, Pharmacy: [facility] #[id number], 160, cm, 04/10/24 15:13:00 EDT, Height/Length Dosing, [...] 2 PO) Take by mouth 0 Active mpscqite-rany-KJ-arley cium &mins (THERAGRAN-M) 9 mg iron-400 mcg tablet (3 sources) zdsdjkry-vpcq-BL - calcium &mins (THERAGRAN-M) 9 mg iron-400 [...] mouth 2 times a day. 0 Active Wmibdcbcqgwj-Mge-Nggi-Fa-Vit K (Bariatric Multivitamins) 45 mg iron- 800 mcg-120 mcg Capsule (4 sources) Start: 11-01-2022 take 1 capsule by mouth twice daily Vklymgnghkkm-Snv-Mokc-Fa-Vit K (Bariatric Multivitamins) 45 mg iron- 800 mcg-120 mcg Capsule Active 1 CAP PO Twice daily November 01, 2022 1:00am Start: 11-01-2022 take 1 capsule by [facility] twice daily Ylchjkbkdrvi-Age-Mznn-Fa-Vit K (Bariatri c Multivitamins) 45 mg iron- [...] tablet Indications: Atherosclerosis of coronary artery of [place] heart without angina pectoris, unspecified vessel or [...] powder 04/19/2018 Active omega-3 acid ethyl esters (mcc) 1000 mg oral capsule (3 sources) take [...] April 21, 2018 11:01pm polyethylene glycol 3350 409304 mg / potassium chloride 2970 mg / sodium bicarbonate 6740 mg / sodium chloride 5860 mg / sodium sulfate 27820 mg powder for oral solution (3 sources) [...] mouth 3 times a day. Active sod loxbu-vmcnoe-xwaxhj bottle (NEILMED SINUS RINSE COMPLETE) packet with rinse device nasal solution (3 sources) Start: 09-13-2017 take 1 dose nasal route once daily sod odjct-slejow-qugrpr bottle (NEILMED SINUS RINSE COMPLETE) packet with [...] day(s), # 180 cap(s), Refills(s) 3, Pharmacy: [facility], 160, cm, 05/27/21 8:19:00 EDT, Height/Length Dosing, 61, kg, 05/27/21 8:19:00 EDT, Weight Dosing Start Date: 03/14/22 Stop Date: 03/09/23 Status: Ordered Start: 04-17-2018 take 1 capsule by [facility] once daily tamsulosin (Flomax) 0.4 [...] day(s), # 30 tab(s), Refills(s) 11, Pharmacy: [facility] #[id number], 160, cm, 04/10/24 15:13:00 EDT, Height/Length Dosing, 74, kg, 04/10/24 15:13:00 EDT, Weight Dosing Start Date: 04/10/24 Stop Date: 04/05/25 Status: Ordered vit C,E-Ee-bureb-lutein-zeaxan (PRESERVISION AREDS-2) 250-90-40-1 mg capsule (1 source) vit C,A-Jg-qfvux-lutein-z eaxan (PRESERVISION AREDS-2) 250-90-40-1 mg capsule Take [...] a day for 30 day(s) Active vitamins A,C,D-gitl-kqpppg (1 source) Start: 08-19-2024 vitamins A,C,H-uqpm-mmdixk Active PO August 19, 2024 12:00am Zyrtec [...] ascorbic acid 226 mg / beta carotene 31977 unt / cuprous oxide 0.8 mg / [...] / neomycin 3.5 mg/ml / polymyxin b 82792 unt/ml ophthalmic suspension (3 sources) Aminoglycoside Antibacterial, Polymyxin-class Antibacterial, Corticosteroid Start: 06-13-2021 take 2 drop(s) into the eye(s) four times daily Neomycin-Polymyxin- HC 3.5-49433-5 Ophthalmic Suspension instill 2 drops INTO AFFECTED [...] sources) Coronary atherosclerosis; Translations: [Coronary atherosclerosis of [place] coronary artery] Onset: 2 Chronic Coronary atherosclerosis [...] 4 08-18-2024 Episodic Other aftercare (1 source) half-way (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; Translations: [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 Orbits if needed. Please contact patient to schedule Orders Onlyon 05-19-2025 Orders Only [id number] Diana Saleem ttrene 1965 F Date Provider Department Center 05/19/2025 [id number] WATSON [facility] Family History Problem Relation Age of Onset Hyperlipidemia Mother Hyperlipidemia Father Hyperlipidemia Brother Heart attack Brother Family Status - Relation Status Age at Mother Father Brother Brother Normal [facility] Telephoneon 05-19-2025 Telephone [id number] Diana Saleem ttrene 1965 F Date Provider Department Center 05/19/2025 [facility] Family History Problem Relation Age of Onset Hyperlipidemia Mother Hyperlipidemia Father Hyperlipidemia Brother Heart attack Brother Family Status - Relation Status Age at Mother Father Brother Brother Normal [facility] XR Wrist - right 2 Viewson 0 05-15-2025 Image result: AP and Lateral Right Wrist: Bone Structure: No acute fracture or dislocation Joint Spaces: The carpal joint spaces are well preserved, minimal joint space narrowing mostly radial with subchondral sclerosis. Scapho-lunate interval within normal limit. Soft tissue: No swelling or calcification Impression: No acute bony process Right Wrist with minimal degenerative changes. Replaced by [facility] Study observation (narrative) [facility] 36on 05-14-2025 36 Stepdown Nurse spoke with Justo kang the pharmacy picking technician and clarify some information and that is what was needed so hopefully soon be able to get soon. Normal [facility] Telephoneon 05-14-2025 Telephone [id number] Diana Saleem 1965 F Date Provider Department Center 05/14/2025 [id number]-SIVANOANALISA WATSON [facility] Family History Problem Relation Age of Onset Hyperlipidemia Mother Hyperlipidemia Father Hyperlipidemia Brother Heart attack Brother Family Status - Relation Status Age at Mother Father Brother Brother [facility] Telephone [id number] SaleemDiana orozco tte 1965 [facility] Department [place] 05/14/2025 [facility] Family History Problem Relation Age of Onset Hyperlipidemia Mother Hyperlipidemia Father Hyperlipidemia Brother Heart attack Brother Family Status - Relation Status Age at Mother Father Brother Brother [facility] 29on 05-08-2025 29 Addended by: ANALISA TAYLOR on: 05/14/2025 03:06 PM Modules accepted: [facility] 29 Addended by: ANALISA TAYLOR on: 05/12/2025 05:18 PM Modules accepted: [facility] Follow-Upon 05-08-2025 Follow-Up [id number] SaleemDiana ttrene 1965 [facility] 05/08/2025 CHAUNCEY CESPEDES [facility] Family History Problem Relation Age of Onset Hyperlipidemia Mother Hyperlipidemia Father Hyperlipidemia Brother Heart attack Brother Family Status - Relation Status Age at Mother Father Brother Brother Level of Service:90182 [place] OFFICE/OUTPATIENT ESTABLISHED MOD MDM 30 MIN () Reason for Visit and Comments: Follow-up [[id number]] [facility] 36on 03-25-2025 36 I called the patient [...] Dr. Kimble is aware of the plan. [facility] Telephoneon 03-25-2025 Telephone [id number] SaleemDiana ttrene 1965 Date Provider Department Center 03/25/2025 [id number] MARTIN [facility] Family History Problem Relation Age of Onset Hyperlipidemia Mother Hyperlipidemia Father Hyperlipidemia Brother Heart attack Brother Family Status - Relation Status Age at Mother Father Brother Brother [facility] 36on 03-20-2025 36 03/25/25@1020 Left pa tient [...] should she follow up in the clinic. [facility] Telephoneon 03-20-2025 Telephone [id number] Diana Saleem 1965 Provider Department Center 03/20/2025 [facility] Family History Problem Relation Age of Onset Hyperlipidemia Mother Hyperlipidemia Father Hyperlipidemia Brother Heart attack Brother Family Status - Relation Status Age at Mother Father Brother Brother [facility] 02-18-2025 36 Called and discussed with jay pt the HIDA and MRCP in details. ----- Message from Gisela sent at 02/11/2025 3:15 PM EDT ----- Patient calling for results and follow up plan. Office visit with you and Dr. Kimble 01/09/25 [facility] 36 ----- Message from Gisela sent at 02/11/2025 3:15 PM EDT ----- Patient calling for results and follow up plan. Office visit with you and Dr. Kimble 01/09/25 [facility] Telephoneon 02-18-2025 Telephone [id number] Diana Saleem ttrene 1965 F Date Provider Department Center 02/18/2025 385SANDRA BETHEA [facility] Family History Problem Relation Age of Onset Hyperlipidemia Mother Hyperlipidemia Father Hyperlipidemia Brother Heart attack Brother Family Status - Relation Status Age at Mother Father Brother Brother Normal [facility] 36on 02-11-2025 36 Patient called me to get results of HIDA scan and then what to do as follow up. I do see the HIDA scan results from 01/30/25 @ [facility] and they are normal will forward to Dr. Martin on of our [facility] [place] to see what further he would like to do. Normal [facility] Telephoneon 02-11-2025 Telephone [id number] Diana Saleem tte 1965 Date Provider Department Center 02/11/2025 396GISELA ROCHA [facility] Family History Problem Relation Age of Onset Hyperlipidemia Mother Hyperlipidemia Father Hyperlipidemia Brother Heart attack Brother Family Status - Relation Status Age at Mother Father Brother Brother Normal [facility] NM HIDA W EJECTION FRACTIONo n [...] Prado M.D.. Not Vldtd Invalid Interpretation Code [facility] Elastase.pancreatic (Stl) [M ass/Mass]on 01-17-2025 Pancreatic Elastase, F 174 mcg/g Low >200 (Normal) [facility] Comment on above: Result Comment: NOTE Interpretation: Borderline (100-200 mcg/g); Consistent with slight to moderate pancreatic insufficiency Test Performed by: [facility] - [address] [address] Director Of Employee Development: Andra Flores Ph.D.; CLIA# [id number] Performed By: #### 2 5907-7 #### [facility] ([id number]) [address] [place] [address], [place] [address] 29on 01-09-2025 29 Addended by: CHAUNCEY KIMBLE on: 01/10/2025 08:32 AM Modules accepted: Level of Service [facility] Follow-Upon 01-09-2025 Follow-Up [id number] Diana Saleem tte 1965 F Date Provider Department Center 01/09/2025 375-CHAUNCEY KIMBLE [facility] GI [facility] Family History Problem Relation Age of Onset Hyperlipidemia Mother Hyperlipidemia Father Hyperlipidemia Brother Heart attack Brother Family Status - Relation Status Age at Mother Father Brother Brother Level of Service:42256 [place] OFFICE/OUTPATIENT ESTABLISHED MOD MDM 30 MIN () Reason for Visit and Comments: Follow-up [018956] - MRI follow up and seen at [facility] and in hospital for 1 day. Will get records. Enzo helped tremendously this time and she came home with it, She just complains of fatigue. PCP Ordered sleep study [facility] 36on 01-02-2025 36 01/02/25@8593 Returned a phone call to patient. She had wanted to follow up with Dr. Chauncey Kimble to let him know she is currently in the ER at [facility] dx with pancreatitis. She had an MRCP on 12/31/24 and if any other lab work needs done to call the Hospital. Normal [facility] Telephoneon 01-02-2025 Telephone [id number] Diana Saleem ttrene 1965 Date Provider Department Center 01/02/2025 G[facility]A [facility]ER [facility] Family History Problem Relation Age of Onset Hyperlipidemia Mother Hyperlipidemia Father Hyperlipidemia Brother Heart attack Brother Family Status - Relation Status Age at Mother Father Brother Brother [facility] MR ABDOMEN W AND WO CONTRAST [...] Landeros MD. Not Vldtd Invalid Interpretation Code [facility] Follow-Upon 12-12-2024 Follow-Up [id number] Diana Saleem ttrene 1965 F Date Provider Department Center 12/12/2024 CHAUNCEY CESPEDES [facility] GI [facility] Family History Problem Relation Age of Onset Hyperlipidemia Mother Hyperlipidemia Father Hyperlipidemia Brother Heart attack Brother Family Status - Relation Status Age at Mother Father Brother Brother Level of Service:03991 [place] OFFICE/OUTPATIENT NEW MODERATE MDM 45 MINUTES (GC) Reason for Visit and Comments: Pancreatitis [831126] - Pain when she stresses or when she eats. She has trouble with losing weight as she always feels bloated and gassy. Normal [facility] XR Wrist - right 2 Viewson [...] Impression: No acute bony process Right Wrist Replaced by [facility]iology Study observation (narrative) [facility] [...] Barrett MD on 10/11/2024 1:59 PM Normal [facility] ECG 12 lead ECGon 08-22-2024 ECG 12 lead ECG [facility] Main [place] [address] [place] [id number] Electrocardiograph Report Signed Patient: Jose Alberto Saleem MR#: [id number] : 1965 Acct:[id number] Age/Sex: 59 / F ADM Date: 08/20/24 Loc: Room: [address] [place] [address] Type: DIS IN Attending Dr: Kaiser Quijano [...] abnormality Abnormal ECG Confirmed by Bella Stein ([id number]) on 08/22/2024 11:33:07 PM Referred By: Bella Stein Electronically Signed By: Bella Stein Transcribed By: MUS Signed By Bella Stein MD 4 2333 Normal [facility] Troponin I High Sensitivityo n 08-22-2024 Troponin I High Sensitivity 1211.6 pg/mL Off scale high 0.0-15.0 [facility] Comment on above: Result Comment: Crit ical Result : Called to and read back by: ROB MCDONALD at: 08/22/2024 06:38:37 by:RAMONA PERFORMED BY: [place] [address] PATHOLOGIST ELECTRICAL ASSEMBLER JANA OLMEDO M.D. Performed By: #### H S TROP ####[facility] [address] [place] [address] [facility] Blood Urea Nitrogenon 2023 Urea nitrogen [Mass/Vol] 14 mg/dL Normal 7-25 [facility] Comment on above: Performed By: #### C REAT, BUN, PP, CBC, LYTES ####[place] [address] [place] [address] [facility] Coagulation Profileon 2023 aPTT Coag (Bld) [Time] 35.9 s Normal 25.1-36.5 [facility] Comment on above: Result Comment: A he matocrit value greater than 55% may lead to inaccurate results in coagulation testing. Patients having hematocrit values >55% require a special collection tube for coagulation studies. Please contact the laboratory at [phone] for redraw instructions. PERFORMED BY: [address] [place] [id number] PATHOLOGIST ELECTRICAL ASSEMBLER JANA OLMEDO M.D. Performed By: #### C REAT, BUN, PP, CBC, LYTES ####[place] [id number] [facility] INR Coag (PPP) [Relative time] 1.1 {INR} Normal [facility] Comment on above: Result Comment: [...] #### C REAT, BUN, PP, CBC, LYTES ####[place] [id number] [facility] PT Coag (PPP) [Time] 12.2 s Normal 9.0-12.9 [facility] Comment on above: Result Comment: A he matocrit value greater than 55% may lead to inaccurate results in coagulation testing. Patients having hematocrit values >55% require a special collection tube for coagulation studies. Please contact the laboratory at [phone] for redraw instructions. Performed By: #### C REAT, BUN, PP, CBC, LYTES ####[address] Complete Blood Count Auto Di ffon 08-21-2024 Basophils (Bld) [#/Vol] 0.0 10*3/uL Normal 0.0-0.2 [facility] Comment on above: Result Comment: PERF ORMED BY: [facility] [address] [place] [address] PATHOLOGIST [employer]LECTRICAL ASSEMBLER JANA OLMEDO M.D. Performed By: #### C REAT, BUN, PP, CBC, LYTES ####[address] Basophils/100 WBC (Bld) 0.3 % Normal . [facility] Comment on above: Performed By: #### C REAT, BUN, PP, CBC, LYTES ####[address] Eosinophils (Bld) [#/Vol] 0.2 10*3/uL Normal 0.0-0.45 [facility] Comment on above: Performed By: #### C REAT, BUN, PP, CBC, LYTES ####[address] Eosinophils/100 WBC (Bld) 3.9 % Normal . [facility] Comment on above: Performed By: #### C REAT, BUN, PP, CBC, LYTES ####[address] Erythrocyte distribution width (RBC) [Ratio] 12.7 % Normal 11.9-15.3 [facility] Comment on above: Performed By: #### C REAT, BUN, PP, CBC, LYTES ####[address] Hematocrit (Bld) [Volume fraction] 42.5 % Normal 34.0-46.4 [facility] Comment on above: Performed By: #### C REAT, BUN, PP, CBC, LYTES ####[address] Hemoglobin (Bld) [Mass/Vol] 14.6 g/dL Normal 11.8-15.4 [facility] Comment on above: Performed By: #### C REAT, BUN, PP, CBC, LYTES ####[address] Lymphocytes (Bld) [#/Vol] 1.7 10*3/uL Normal 1.00-4.8 [facility] Comment on above: Performed By: #### C REAT, BUN, PP, CBC, LYTES ####[address] Lymphocytes/100 WBC (Bld) 35.0 % Normal . [facility] Comment on above: Performed By: #### C REAT, BUN, PP, CBC, LYTES ####[address] MCH (RBC) [Entitic mass] 30.8 pg Normal 24.7-34.3 [facility] Comment on above: Performed By: #### C REAT, BUN, PP, CBC, LYTES ####[address] MCV (RBC) [Entitic vol] 89.8 fL Normal 80-100 [facility] Comment on above: Performed By: #### C REAT, BUN, PP, CBC, LYTES ####[address] Mean Corpuscular HGB Conc 34.3 g/dL Normal 32.0-35.0 [facility] Comment on above: Performed By: #### C REAT, BUN, PP, CBC, LYTES ####[address] Monocytes (Bld) [#/Vol] 0.5 10*3/uL Normal 0.0-0.8 [facility] Comment on above: Performed By: #### C REAT, BUN, PP, CBC, LYTES ####[address] Monocytes/100 WBC (Bld) 10.9 % Normal . [facility] Comment on above: Performed By: #### C REAT, BUN, PP, CBC, LYTES ####[address] Neutrophils (Bld) [#/Vol] 2.5 10*3/uL Normal 1.8-7.7 [facility] Comment on above: Performed By: #### C REAT, BUN, PP, CBC, LYTES ####[address] Neutrophils/100 WBC (Bld) 49.9 % Normal . [facility] Comment on above: Performed By: #### C REAT, BUN, PP, CBC, LYTES ####[address] NRBC% 0.1 /100{WBC} Normal 0-0.5 [facility] Comment on above: Performed By: #### C REAT, BUN, PP, CBC, LYTES ####[address] Platelet mean volume (Bld) [Entitic vol] 7.7 fL Normal 6.3-10.7 [facility] Comment on above: Performed By: #### C REAT, BUN, PP, CBC, LYTES ####[address] Platelets (Bld) [#/Vol] 172 10*3/uL Normal 150-450 [facility] Comment on above: Performed By: #### C REAT, BUN, PP, CBC, LYTES ####[address] RBC (Bld) [#/Vol] 4.73 10*6/uL Normal 3.60-5.00 [facility] Comment on above: Performed By: #### C REAT, BUN, PP, CBC, LYTES ####[place] [address] [place] [id number] [facility] WBC (Bld) [#/Vol] 4.9 10*3/uL Normal 3.8-11.6 [facility] Comment on above: Performed By: #### C REAT, BUN, PP, CBC, LYTES ####[place] [address] [place] [address] [facility] Creatinineon 08-21-2024 Creatinine [Mass/Vol] 0.61 mg/dL Normal 0.60-1.20 [facility] Comment on above: Performed By: #### C REAT, BUN, PP, CBC, LYTES ####[place] [id number] [facility] Creatinine Clr Calc Pharmacy 97.73 Normal [facility] Comment on above: Result Comment: PERF ORMED BY: [place] [address] PATHOLOGIST ELECTRICAL ASSEMBLER JANA OLMEDO M.D. Performed By: #### C REAT, BUN, PP, CBC, LYTES ####[place] [id number] [facility] GFR/1.73 sq M.predicted MDRD (S/P/Bld) [Vol rate/Area] mL/min/{1.73_m2} Normal [facility] Comment on above: Performed By: #### C REAT, BUN, PP, CBC, LYTES ####[place] [id number] [facility] ECG 12 lead ECGon 08-21-2024 ECG 12 lead ECG [facility] Main [place] [address] [place] [address] Electrocardiograph Report Signed Patient: Jose Alberto Saleem MR#: [id number] 571 : 1965 Acct:[id number] Age/Sex: 59 / F ADM Date: 08/20/24 Loc: Room: [address] [place] [address] Type: DIS IN Attending Dr: Kaiser Quijano [...] abnormality Abnormal ECG Confirmed by Bella Stein ([id number]) on 08/22/2024 11:33:52 PM Referred By: Bella Stein Electronically Signed By: Bella tSein Transcribed By: [facility] Signed By Bella Stein MD 4 2333 Normal [facility] Electrolyteson 08-21-2024 Anion gap [Moles/Vol] 11.0 mmol/L Normal 6.0-15.0 Th e [facility] Comment on above: Performed By: #### C REAT, BUN, PP, CBC, LYTES ####[address] Chloride [Moles/Vol] 105 mmol/L Normal 98-107 [facility] Comment on above: Performed By: #### C REAT, BUN, PP, CBC, LYTES ####[address] CO2 [Moles/Vol] 27.9 mmol/L Normal 21.0-31.0 The [facility] Comment on above: Performed By: #### C REAT, BUN, PP, CBC, LYTES ####[address] Potassium [Moles/Vol] 3.9 mmol/L Normal 3.5-5.1 [facility] Comment on above: Performed By: #### C REAT, BUN, PP, CBC, LYTES ####[address] Sodium [Moles/Vol] 140 mmol/L Normal 136-145 [facility] Comment on above: Performed By: #### C REAT, BUN, PP, CBC, LYTES ####[facility] [place] [address] [facility] NM lia perf SPECT rest stron 08-20-2024 NM lia perf SPECT rest str [facility] Main [place] [id number] Nuclear Medicine Report Signed Patient: Jose Alberto Saleem MR#: [id number] : 1965 Acct:[id number] Age/Sex: 59 / F ADM Date: 08/18/24 Loc: Room: [address] [place] [address] Type: ADM INOo Attending Dr: Chucky Dunn [...] Bella Stein M.D.08/20/2024 3:56 PM Dictation Location: [place] [address] Transcribed By: [facility] 08/20/24 1553 Dictated By: Bella Stein MD 08/20/24 1552 Signed By: 08/20/24 1556 Normal [facility] A1C with Estimated Average G rebekahlio 08-19-2024 Glucose [Mass/Vol] 117 mg/dL Normal [facility] Comment on above: Result Comment: PERF ORMED BY: [address] [address] PATHOLOGIST ELECTRICAL ASSEMBLER JANA OLMEDO M.D. Performed By: #### A 1C [facility] eA, TROP ####[facility] [place] [address] [facility] HbA1c (Bld) [Mass fraction] 5.7 % High 4.3-5.6 [facility] Comment on above: Result Comment: Incr eased risk for diabetes: 5.7 - 6.4 diabetes: >6.4 glycemic control for adults with diabetes: <7.0 Performed By: #### A 1C [facility] eA, HS TROP ####[facility] [address] [place] [address] [facility] ECG 12 lead ECGon 08-19-2024 ECG 12 [place] [address] Electrocardiograph Report Signed Patient: Jose Alberto Saleem MR#: [id number] 571 : 1965 Acct:[id number] Age/Sex: 59 / F ADM Date: 08/18/24 Loc: Room: [address] [place] [address] Type: ADM INOo Attending Dr: Chucky Dunn [...] abnormality Abnormal ECG Confirmed by Bella Stein ([id number]) on 08/21/2024 12:00:39 AM Referred By: Bella Stein Electronically Signed By: Bella Stein Transcribed By: MUS Signed By Bella Stein MD 4 0000 Normal [facility] ECG 12 lead ECG [facility] [place] [address] Electrocardiograph Report Signed Patient: Jose Alberto Saleem MR#: [id number] 571 : 1965 Acct:[id number] Age/Sex: 59 / F ADM Date: 08/18/24 Loc: 3T Room: [address] [place] [address] Type: ADM INOo Attending Dr: Chucky Dunn [...] rhythm Leftward axis Confirmed by Bridgett Monreal ([id number]) on 08/20/2024 11:52:24 PM Referred By: Bella Stein Electronically Signed By: Bridgett Monreal Transcribed By: MUS Signed By Bridgett Monreal MD 08/20/24 2352 Normal [facility] Troponin I High Sensitivityo n 08-19-2024 Troponin I High Sensitivity 4.6 pg/mL Normal 0.0-15.0 [facility] Comment on above: Result Comment: PERF ORMED BY: [place] [address] PATHOLOGIST ELECTRICAL ASSEMBLER JANA OLMEDO M.D. Performed By: #### A 1C [facility] ####[place] [id number] [facility] X-ray reportOrdered By: Anna Wick on 08-19-2024 [place] [address] XRay Report Signed Patient: Jose Alberto Saleem MR#: [id number] : 1965 Acct:[id number] Age/Sex: 59 / F ADM Date: 4 Loc: 3T Room: [address] [place] [address] Type: ADM INOo Attending Dr: Donis Arroyo [...] Thelma Wick M.D.08/19/2024 12:10 AM Dictation Location: [place] [address] Transcribed By: [facility] 08/19/249 Dictated By: Thelma Wick MD 08/18/242210 Signed By: 08/19/249 [facility] Work Phone: Alanine aminotransferase [En zymatic activity/volume] in Serum or PlasmaOrdered By: Lynnette Chapman on 08-18-2024 ALT [Catalytic activity/Vol] Alanine aminotransferase [Enzymatic activity/volume] in Serum or Plasma 7-52 [facility] Albumin [Mass/volume] in Ser um or Plasma by Bromocresol green (BCG) dye binding methoOrdered By: Lynnette Chapman on 08-18-2024 Albumin BCG dye [Mass/Vol] Albumin [Mass/volume] in Serum or Plasma by Bromocresol green (BCG) dye binding metho 3.5-5.7 [facility] Alkaline phosphatase [Enzyma tic activity/volume] in Serum or PlasmaOrdered By: Lynnette Chapman on 08-18-2024 ALP [Catalytic activity/Vol] Alkaline phosphatase [Enzymatic activity/volume] in Serum or Plasma 34-104 [facility] Aspartate aminotransferase [ Enzymatic activity/volume] in Serum or PlasmaOrdered By: Lynnette Chapman on 08-18-2024 AST [Catalytic activity/Vol] Aspartate aminotransferase [Enzymatic activity/volume] in Serum or Plasma 13-39 [facility] B-Type Natriuretic Peptideon 08-18-2024 Natriuretic peptide B (Bld) [Mass/Vol] 31.0 pg/mL Normal 5-100 [facility] Comment on above: Result Comment: PERF ORMED BY: [place] [address] PATHOLOGIST ELECTRICAL ASSEMBLER JANA OLMEDO M.D. Performed By: #### H S TROP, LIPASE, PT, BMP, HEPATIC, CK, CBC, BNP ####[address] Basic Metabolic Panelon 08-01 Anion gap [Moles/Vol] 10.7 mmol/L Normal 6.0-15.0 [facility] Comment on above: Performed By: #### H S TROP, LIPASE, PT, BMP, HEPATIC, CK, CBC, BNP #### [address] Performed By: #### H S TROP, LIPASE, PT, BMP, HEPATIC, CK, CBC, BNP ####[address] Calcium [Mass/Vol] 10.1 mg/dL Normal 8.6-10.3 [facility] Comment on above: Performed By: #### H S TROP, LIPASE, PT, BMP, HEPATIC, CK, CBC, BNP #### [address] Performed By: #### H S TROP, LIPASE, PT, BMP, HEPATIC, CK, CBC, BNP ####[address] Chloride [Moles/Vol] 102 mmol/L Normal 98-107 [facility] Comment on above: Performed By: #### H S TROP, LIPASE, PT, BMP, HEPATIC, CK, CBC, BNP #### [address] Performed By: #### H S TROP, LIPASE, PT, BMP, HEPATIC, CK, CBC, BNP ####[address] [address] [place] CO2 [Moles/Vol] 28.4 mmol/L Normal 21.0-31.0 [facility] Comment on above: Performed By: #### H S TROP, LIPASE, PT, BMP, HEPATIC, CK, CBC, BNP #### [address] Performed By: #### H S TROP, LIPASE, PT, BMP, HEPATIC, CK, CBC, BNP ####[address] Creatinine [Mass/Vol] 0.62 mg/dL Normal 0.60-1.20 [facility] Comment on above: Performed By: #### H S TROP, LIPASE, PT, BMP, HEPATIC, CK, CBC, BNP #### [address] Performed By: #### H S TROP, LIPASE, PT, BMP, HEPATIC, CK, CBC, BNP ####[address] Creatinine Clr Calc Pharmacy 95.72 Normal [facility] Comment on above: Result Comment: PERF ORMED BY: [place] [address] PATHOLOGIST ELECTRICAL ASSEMBLER JANA OLMEDO M.D. Performed By: #### H S TROP, LIPASE, PT, BMP, HEPATIC, CK, CBC, BNP #### [address] Performed By: #### H S TROP, LIPASE, PT, BMP, HEPATIC, CK, CBC, BNP ####[address] GFR/1.73 sq M.predicted MDRD (S/P/Bld) [Vol rate/Area] mL/min/{1.73_m2} Normal [facility] Comment on above: Performed By: #### H S TROP, LIPASE, PT, BMP, HEPATIC, CK, CBC, BNP #### [facility] [address] [place] [address] [place] Performed By: #### H S TROP, LIPASE, PT, BMP, HEPATIC, CK, CBC, BNP ####[address] Glucose [Mass/Vol] 94 mg/dL Normal 70-100 [facility] Comment on above: Result Comment: [facility] [place] [facility] Glucose Reference Range is dependent on time and content of last meal. Glucose of more than 200 mg/dL in a nonstressed, ambulatory subject supports the diagnosis of Diabetes Mellitus. ADA recommended reference range Performed By: #### H S TROP, LIPASE, PT, BMP, HEPATIC, CK, CBC, BNP #### [address] Performed By: #### H S TROP, LIPASE, PT, BMP, HEPATIC, CK, CBC, BNP ####[address] Potassium [Moles/Vol] 4.1 mmol/L Normal 3.5-5.1 [facility] Comment on above: Performed By: #### H S TROP, LIPASE, PT, BMP, HEPATIC, CK, CBC, BNP #### [address] Performed By: #### H S TROP, LIPASE, PT, BMP, HEPATIC, CK, CBC, BNP ####[address] Sodium [Moles/Vol] 137 mmol/L Normal 136-145 [facility] Comment on above: Performed By: #### H S TROP, LIPASE, PT, BMP, HEPATIC, CK, CBC, BNP #### [address] Performed By: #### H S TROP, LIPASE, PT, BMP, HEPATIC, CK, CBC, BNP ####[address] Urea nitrogen [Mass/Vol] 22 mg/dL Normal 7-25 [facility] Comment on above: Performed By: #### H S TROP, LIPASE, PT, BMP, HEPATIC, CK, CBC, BNP #### [address] [place] [address] [place] Performed By: #### H S TROP, LIPASE, PT, BMP, HEPATIC, CK, CBC, BNP ####[facility] [address] Basophils Auto (Bld) [#/Vol] Ordered By: Lynnette Chapman on 08-18-2024 Basophils (Bld) [#/Vol] Automated basophil count 0.0-0.2 [facility] Basophils/100 WBC Auto (Bld) Ordered By: Lynnette Chapman on 08-18-2024 Basophils/100 WBC (Bld) Automated basophil % . [facility] Bilirubin.direct [Mass/volum e] in Serum or PlasmaOrdered By: Lynnette Chapman on 08-18-2024 Bilirubin.direct [Mass/Vol] Bilirubin.direct [Mass/volume] in Serum or Plasma 0.03-0.18 [facility] Bilirubin.total [Mass/volume ] in Serum or PlasmaOrdered By: Lynnette Chapman on 08-18-2024 Bilirubin [Mass/Vol] Bilirubin.total [Mass/volume] in Serum or Plasma 0.3-1.0 [facility] Calcium [Mass/volume] in Ser um or PlasmaOrdered By: Lynnette Chapman on 08-18-2024 Calcium [Mass/Vol] Calcium [Mass/volume ] in Serum or Plasma 8.6-10.3 [facility] Carbon dioxide, total [Moles /volume] in Serum or PlasmaOrdered By: Lynnette Chapman on 08-18-2024 CO2 [Moles/Vol] Carbon dioxide, tota l [Moles/volume] in Serum or Plasma 21.0-31.0 [facility] Chloride [Moles/volume] in S nina or PlasmaOrdered By: Lynnette Chapman on 08-18-2024 Chloride [Moles/Vol] Chloride [Moles/vol ume] in Serum or Plasma 98-107 [facility] Complete Blood Count Auto Di ffon 08-18-2024 Basophils (Bld) [#/Vol] 0.0 10*3/uL Normal 0.0-0.2 [facility] Comment on above: Result Comment: PERF ORMED BY: [facility] [address] [place] [address] PATHOLOGIST ELECTRICAL ASSEMBLER JANA OLMEDO M.D. Performed By: #### H S TROP, LIPASE, PT, BMP, HEPATIC, CK, CBC, BNP #### [address] Basophils/100 WBC (Bld) 0.7 % Normal . [facility] Comment on above: Performed By: #### H S TROP, LIPASE, PT, BMP, HEPATIC, CK, CBC, BNP #### [address] Eosinophils (Bld) [#/Vol] 0.2 10*3/uL Normal 0.0-0.45 [facility] Comment on above: Performed By: #### H S TROP, LIPASE, PT, BMP, HEPATIC, CK, CBC, BNP #### [address] Eosinophils/100 WBC (Bld) 3.5 % Normal . [facility] Comment on above: Performed By: #### H S TROP, LIPASE, PT, BMP, HEPATIC, CK, CBC, BNP #### [address] Erythrocyte distribution width (RBC) [Ratio] 12.6 % Normal 11.9-15.3 [facility] Comment on above: Performed By: #### H S TROP, LIPASE, PT, BMP, HEPATIC, CK, CBC, BNP #### [address] Hematocrit (Bld) [Volume fraction] 43.7 % Normal 34.0-46.4 [facility] Comment on above: Performed By: #### H S TROP, LIPASE, PT, BMP, HEPATIC, CK, CBC, BNP #### [address] Hemoglobin (Bld) [Mass/Vol] 15.1 g/dL Normal 11.8-15.4 [facility] Comment on above: Performed By: #### H S TROP, LIPASE, PT, BMP, HEPATIC, CK, CBC, BNP #### [address] Lymphocytes (Bld) [#/Vol] 2.2 10*3/uL Normal 1.00-4.8 [facility] Comment on above: Performed By: #### H S TROP, LIPASE, PT, BMP, HEPATIC, CK, CBC, BNP #### [address] Lymphocytes/100 WBC (Bld) 36.5 % Normal . [facility] Comment on above: Performed By: #### H S TROP, LIPASE, PT, BMP, HEPATIC, CK, CBC, BNP #### [address] MCH (RBC) [Entitic mass] 30.7 pg Normal 24.7-34.3 [facility] Comment on above: Performed By: #### H S TROP, LIPASE, PT, BMP, HEPATIC, CK, CBC, BNP #### [address] MCV (RBC) [Entitic vol] 88.8 fL Normal 80-100 [facility] Comment on above: Performed By: #### H S TROP, LIPASE, PT, BMP, HEPATIC, CK, CBC, BNP #### [address] Mean Corpuscular HGB Conc 34.5 g/dL Normal 32.0-35.0 [facility] Comment on above: Performed By: #### H S TROP, LIPASE, PT, BMP, HEPATIC, CK, CBC, BNP #### [address] Monocytes (Bld) [#/Vol] 0.6 10*3/uL Normal 0.0-0.8 [facility] Comment on above: Performed By: #### H S TROP, LIPASE, PT, BMP, HEPATIC, CK, CBC, BNP #### [address] Monocytes/100 WBC (Bld) 16.97 % Normal 0.00-20.00 [facility] Comment on above: Performed By: #### H S TROP, LIPASE, PT, BMP, HEPATIC, CK, CBC, BNP #### [address] Monocytes/100 WBC (Bld) 10.5 % Normal . [facility] Comment on above: Performed By: #### H S TROP, LIPASE, PT, BMP, HEPATIC, CK, CBC, BNP #### [address] Neutrophils (Bld) [#/Vol] 3.0 10*3/uL Normal 1.8-7.7 [facility] Comment on above: Performed By: #### H S TROP, LIPASE, PT, BMP, HEPATIC, CK, CBC, BNP #### [address] Neutrophils/100 WBC (Bld) 48.8 % Normal . [facility] Comment on above: Performed By: #### H S TROP, LIPASE, PT, BMP, HEPATIC, CK, CBC, BNP #### [address] NRBC% 0.1 /100{WBC} Normal 0-0.5 [facility] Comment on above: Performed By: #### H S TROP, LIPASE, PT, BMP, HEPATIC, CK, CBC, BNP #### [address] Platelet mean volume (Bld) [Entitic vol] 7.9 fL Normal 6.3-10.7 [facility] Comment on above: Performed By: #### H S TROP, LIPASE, PT, BMP, HEPATIC, CK, CBC, BNP #### [address] Platelets (Bld) [#/Vol] 204 10*3/uL Normal 150-450 [facility] Comment on above: Performed By: #### H S TROP, LIPASE, PT, BMP, HEPATIC, CK, CBC, BNP #### [address] RBC (Bld) [#/Vol] 4.92 10*6/uL Normal 3.60-5.00 [facility] Comment on above: Performed By: #### H S TROP, LIPASE, PT, BMP, HEPATIC, CK, CBC, BNP #### [facility] [address] WBC (Bld) [#/Vol] 6.1 10*3/uL Normal 3.8-11.6 [facility] Comment on above: Performed By: #### H S TROP, LIPASE, PT, BMP, HEPATIC, CK, CBC, BNP #### [facility] [address] Creatine Kinaseon 08-18-2024 CK [Catalytic activity/Vol] 53 U/L Normal 30-223 [facility] Comment on above: Performed By: #### H S TROP, LIPASE, PT, BMP, HEPATIC, CK, CBC, BNP ####[facility] Creatine kinase [Enzymatic a ctivity/volume] in Serum or PlasmaOrdered By: Lynnette Chapman on 08-18-2024 CK [Catalytic activity/Vol] Creatine kinase [Enzymatic activity/volume] in Serum or Plasma 30-223 [facility] Creatinine [Mass/volume] in Serum or PlasmaOrdered By: Lynnette Chapman on 08-18-2024 Creatinine [Mass/Vol] Creatinine [Mass/v olume] in Serum or Plasma 0.60-1.20 [facility] ECG 12 lead ECGon 08-18-2024 ECG 12 lead ECG [facility] [place] [address] Electrocardiograph Report Signed Patient: Jose Alberto Saleem MR#: [id number] : 1965 Acct:[id number] Age/Sex: 59 / F ADM Date: 08/18/24 Loc: ER Room: Type: [facility] ER Attending Dr: Ordering Provider: Lynnette [...] wave abnormality Confirmed by Lynnette Chapman MD ([id number]) on 08/18/2024 11:22:40 PM Referred By: Electronically Signed By: Lynnette Chapman MD Transcribed By: MUS Signed By Lynnette Chapman MD 08/01 05/24 1471 Normal [facility] Eosinophils Auto (Bld) [#/Vo l]Ordered By: Lynnette Chapman on 08-18-2024 Eosinophils (Bld) [#/Vol] Automated eosinophil count 0.0-0.45 [facility] Eosinophils/100 WBC Auto (Bl d)Ordered By: Lynnette Chapman on 08-18-2024 Eosinophils/100 WBC (Bld) Automated eosinophil % . [facility] Erythrocyte distribution wid th Auto (RBC) [Ratio]Ordered By: Lynnette Chapman on 08-18-2024 Erythrocyte distribution width (RBC) [Ratio] Erythrocyte distribution width [Ratio] by Automated count 11.9-15.3 [facility] Globulin Calc (S) [Mass/Vol] Ordered By: Lynnette Chapman on 08-18-2024 Globulin (S) [Mass/Vol] Serum globulin measurement by calculation (mass/volume) [facility] Glucose [Mass/volume] in Ser um or PlasmaOrdered By: Lynnette Chapman on 08-18-2024 Glucose [Mass/Vol] Glucose [Mass/volume ] in Serum or Plasma 70-100 [facility] Comment on above: ADA recommended refe rence rangeRandom Glucose Reference Range is dependent on time and content of last meal. Glucose of more than 200 mg/dL in a nonstressed, ambulatory subject supports the diagnosis of Diabetes Mellitus. Hematocrit Auto (Bld) [Volum e fraction]Ordered By: Lynnette Chapman on 08-18-2024 Hematocrit (Bld) [Volume fraction] Hematocrit [Volume Fraction] of Blood by Automated count 34.0-46.4 [facility] Hemoglobin [Mass/volume] in BloodOrdered By: Lynnette Chapman on 08-18-2024 Hemoglobin (Bld) [Mass/Vol] Hemoglobin [Mass/volume] in Blood 11.8-15.4 [facility] Hepatic Panelon 08-18-2024 Albumin [Mass/Vol] 4.3 g/dL Normal 3.5-5.7 [facility] Comment on above: Performed By: #### H S TROP, LIPASE, PT, BMP, HEPATIC, CK, CBC, BNP ####[address] Albumin/Globulin [Mass ratio] 1.7 {ratio} Normal [facility] Comment on above: Performed By: #### H S TROP, LIPASE, PT, BMP, HEPATIC, CK, CBC, BNP ####[address] ALP [Catalytic activity/Vol] 89 U/L Normal 34-104 [facility] Comment on above: Performed By: #### H S TROP, LIPASE, PT, BMP, HEPATIC, CK, CBC, BNP ####[address] ALT [Catalytic activity/Vol] 42 U/L Normal 7-52 [facility] Comment on above: Performed By: #### H S TROP, LIPASE, PT, BMP, HEPATIC, CK, CBC, BNP ####[address] AST [Catalytic activity/Vol] 31 U/L Normal 13-39 [facility] Comment on above: Performed By: #### H S TROP, LIPASE, PT, BMP, HEPATIC, CK, CBC, BNP ####[address] Bilirubin [Mass/Vol] 0.4 mg/dL Normal 0.3-1.0 [facility] Comment on above: Performed By: #### H S TROP, LIPASE, PT, BMP, HEPATIC, CK, CBC, BNP ####[address] Bilirubin,Indirect 0.3 mg/dL Normal [facility] Comment on above: Performed By: #### H S TROP, LIPASE, PT, BMP, HEPATIC, CK, CBC, BNP ####[address] [place] [address] [facility] Bilirubin.indirect [Mass/Vol] 0.10 mg/dL Normal 0.03-0.18 [facility] Comment on above: Performed By: #### H S TROP, LIPASE, PT, BMP, HEPATIC, CK, CBC, BNP ####[place] [id number] [address] Globulin (S) [Mass/Vol] 2.6 g/dL Normal [facility] Comment on above: Performed By: #### H S TROP, LIPASE, PT, BMP, HEPATIC, CK, CBC, BNP ####[place] [address] [address] Protein [Mass/Vol] 6.9 g/dL Normal 6.4-8.9 [facility] Comment on above: Performed By: #### H S TROP, LIPASE, PT, BMP, HEPATIC, CK, CBC, BNP ####[address] INR in Platelet poor plasma by Coagulation assayOrdered By: Lynnette Chapman on 08-18-2024 INR Coag (PPP) [Relative time] INR in Platelet poor plasma by Coagulation assay [facility] Comment on above: INR Therapeutic Rang [...] erythrocytes in Blood by Automated coun 3.8-11.6 [facility] Lipaseon 08-18-2024 Lipase [Catalytic activity/Vol] 110.0 U/L High 11.0-82.0 [facility] Comment on above: Result Comment: PERF ORMED BY: [facility] [address] [place] [id number] PATHOLOGIST [employer]SEMBLER JANA OLMEDO M.D. Performed By: #### H S TROP, LIPASE, PT, BMP, HEPATIC, CK, CBC, BNP ####[facility] [address] [place] [id number] [facility] Lipase [Enzymatic activity/v olume] in Serum or PlasmaOrdered By: Lynnette Chapman on 08-18-2024 Lipase [Catalytic activity/Vol] Lipase [Enzymatic activity/volume] in Serum or Plasma High 11.0-82.0 [facility] Lymphocytes Auto (Bld) [#/Vo l]Ordered By: Lynnette Chapman on 08-18-2024 Lymphocytes (Bld) [#/Vol] Lymphocytes [#/volume] in Blood by Automated count 1.00-4.8 [facility] Lymphocytes/100 WBC Auto (Bl d)Ordered By: Lynnette Chapman on 08-18-2024 Lymphocytes/100 WBC (Bld) Lymphocytes/100 leukocytes in Blood by Automated count . [facility] MCH Auto (RBC) [Entitic mass ]Ordered By: Lynnette Chapman on 08-18-2024 MCH (RBC) [Entitic mass] MCH [Entitic mass] by Automated count 24.7-34.3 [facility] MCHC Auto (RBC) [Mass/Vol]Or dered By: Lynnette Chapman on 08-18-2024 MCHC (RBC) [Mass/Vol] MCHC [Mass/volume] by Automated count 32.0-35.0 [facility] MCV Auto (RBC) [Entitic vol] Ordered By: Lynnette Chapman on 08-18-2024 MCV (RBC) [Entitic vol] MCV [Entitic volume] by Automated count 80-100 [facility] Monocyte distribution width [Entitic volume] in Blood by AutomatedOrdered By: Lynnette Chapman on 08-18-2024 Monocyte distribution width Auto (Bld) [Entitic vol] Monocyte distribution width [Entitic volume] in Blood by Automated 0.00-20.00 [facility] Monocytes Auto (Bld) [#/Vol] Ordered By: Lynnette Chapman on 08-18-2024 Monocytes (Bld) [#/Vol] Automated blood monocyte count 0.0-0.8 [facility] Monocytes/100 WBC Auto (Bld) Ordered By: Lynnette Chapman on 08-18-2024 Monocytes/100 WBC (Bld) Automated monocyte % . [facility] Natriuretic peptide B [Mass/ Vol]Ordered By: Lynnette Chapman on 08-18-2024 Natriuretic peptide B (Bld) [Mass/Vol] BNP ser/plas 5-100 [facility] Neutrophils Auto (Bld) [#/Vo l]Ordered By: Lynnette Chapman on 08-18-2024 Neutrophils (Bld) [#/Vol] Neutrophils [#/volume] in Blood by Automated count 1.8-7.7 [facility] Neutrophils/100 WBC Auto (Bl d)Ordered By: Lynnette Chapman on 08-18-2024 Neutrophils/100 WBC (Bld) Automated neutrophil % . [facility] No Panel InformationOrdered By: Lynnette Chapman on 08-18-2024 Estimated GFR (CKD-EPI) > 60.0 mL/Min [facility] Creatinine Clearance (Chem 95.72 [facility] Nucleated erythrocytes [Pres ence] in Blood by Automated countOrdered By: Lynnette Chapman on 08-18-2024 Nucleated RBC Auto Ql (Bld) Nucleated erythrocytes [Presence] in Blood by Automated count 0-0.5 [facility] Platelet mean volume Auto (B ld) [Entitic vol]Ordered By: Lynnette Chapman on 08-18-2024 Platelet mean volume (Bld) [Entitic vol] Platelet mean volume [Entitic volume] in Blood by Automated count 6.3-10.7 [facility] Platelets Auto (Bld) [#/Vol] Ordered By: Lynnette Chapman on 08-18-2024 Platelets (Bld) [#/Vol] Platelets [#/volume] in Blood by Automated count 150-450 [facility] Potassium [Moles/volume] in Serum or PlasmaOrdered By: Lynnette Chapman on 08-18-2024 Potassium [Moles/Vol] Potassium [Moles/v olume] in Serum or Plasma 3.5-5.1 [facility] Protein [Mass/volume] in Ser um or PlasmaOrdered By: Lynnette Chapman on 08-18-2024 Protein [Mass/Vol] Protein [Mass/volume ] in Serum or Plasma 6.4-8.9 [facility] Prothrombin Time INRon 08-18 INR Coag (PPP) [Relative time] 1.0 {INR} Normal [facility] Comment on above: Result Comment: [...] heart valves: 3 - 4.5 PERFORMED BY: [place] [address] PATHOLOGIST [employer]LECT[employer]SEMBLER JANA OLMEDO M.D. Performed By: #### H S TROP, LIPASE, PT, BMP, HEPATIC, CK, CBC, BNP #### [facility] [address] [place] [address] PT Coag (PPP) [Time] 11.7 s Normal 9.0-12.9 [facility] Comment on above: Result Comment: A he matocrit value greater than 55% may lead to inaccurate results in coagulation testing. Patients having hematocrit values >55% require a special collection tube for coagulation studies. Please contact the laboratory at [phone] for redraw instructions. Performed By: #### H S TROP, LIPASE, PT, BMP, HEPATIC, CK, CBC, BNP #### [facility] [address] [place] [address] Prothrombin time (PT)Ordered By: Lynnette Chapman on 08-18-2024 PT Coag (PPP) [Time] Prothrombin time (PT) 9.0- 12.9 [facility] Comment on above: A hematocrit value g reater than 55% may lead to inaccurate results in coagulation testing. Patients having hematocrit values >55% require a special collection tube for coagulation studies. Please contact the laboratory at [phone] for redraw instructions. RBC Auto (Bld) [#/Vol]Ordere d By: Lynnette Chapman on 08-18-2024 RBC (Bld) [#/Vol] Erythrocytes [#/volu me] in Blood by Automated count 3.60-5.00 [facility] Serum or plasma albumin/glob ulin mass ratioOrdered By: Lynnette Chapman on 08-18-2024 Albumin/Globulin [Mass ratio] Serum or plasma albumin/globulin mass ratio [facility] Serum or plasma anion gap de terminationOrdered By: Lynnette Chapman on 08-18-2024 Anion gap [Moles/Vol] Serum or plasma an ion gap determination 6.0-15.0 [facility] Serum or plasma non-glucuron idated bilirubin measurement (mass/volume)Ordered By: Lynnette Chapman on 08-18-2024 Bilirubin.indirect [Mass/Vol] Serum or plasma non-glucuronidated bilirubin measurement (mass/volume) [facility] Sodium [Moles/volume] in Ser um or PlasmaOrdered By: Lynnette Chapman on 08-18-2024 Sodium [Moles/Vol] Sodium [Moles/volume ] in Serum or Plasma 136-145 [facility] Troponin I High Sensitivityo n 08-18-2024 Troponin I High Sensitivity 4.7 pg/mL Normal 0.0-15.0 [facility] Comment on above: Result Comment: PERF ORMED BY: [facility] [address] [place] [address] PATHOLOGIST ELECTRICAL ASSEMBLER JANA OLMEDO M.D. Performed By: #### H S TROP ####[address] [address] [facility] Troponin I High Sensitivity 5.1 pg/mL Normal 0.0-15.0 [facility] Comment on above: Result Comment: PERF ORMED BY: [facility] [address] [place] [address] PATHOLOGIST ELECTRICAL ASSEMBLER JANA OLMEDO M.D. Performed By: #### H S TROP, LIPASE, PT, BMP, HEPATIC, CK, CBC, BNP ####[address] [address] [facility] Troponin I.cardiac [Mass/vol ume] in Serum or Plasma by Detection limit <= 0.01 ng/Ordered By: Lynnette Chapman on 08-18-2024 Troponin I.cardiac DL <= 0.01 ng/mL [Mass/Vol] Troponin I.cardiac [Mass/volume] in Serum or Plasma by Detection limit <= 0.01 ng/ 0.0-15.0 [facility] Urea nitrogen [Mass/volume] in Serum or PlasmaOrdered By: Lynnette Chapman on 08-18-2024 Urea nitrogen [Mass/Vol] Urea nitrogen [Mass/volume] in Serum or Plasma 7-25 [facility] WBC Auto (Bld) [#/Vol]Ordere d By: Lynnette Chapman on 08-18-2024 WBC (Bld) [#/Vol] Leukocytes [#/volume ] in Blood by Automated count 3.8-11.6 [facility] XR chest 2V*on 08-18-2024 XR chest 2V* [facility] [place] [address] XRay Report Signed Patient: Jose Alberto Saleem MR#: [id number] : 1965 Acct:[id number] Age/Sex: 59 / F ADM Date: 08/18/24 Loc: Room: [address] [place] [address] Type: ADM INOo Attending Dr: Donis Arroyo [...] Thelma Wick M.D.08/19/2024 12:10 AM Dictation Location: [place] [address] Transcribed By: [facility] 08/19/24 0010 Dictated By: Thelma Wick MD 08/18/24 3557 Signed By: 08/19/24 0010 Normal [facility] Reminderson 08-05-2024 Reminders Reminders From: Magdalena Longoria To: EU - Administrative; Sent: 08/05/2024 13:08:24 EST Show up: 03/01/2025 13:08:00 EDT Subject: 1 yr reminder Due Date/Time: 08/01/2025 13:08:00 EDT Reminder/Recall Patient needs scheduled with [facility] for a 1 yr f/u with [facility] Normal [facility] Urology Office/Clinic Noteon 08-05-2024 Urology Office/Clinic [...] Myrbetriq from 25mg to 50mg qd Ordered: 74444 Measure Post Void residual urine and/or bladder capacity by US- non-imaging E&M of Est. Patient Moderate 30-39 Min 21788 Urnls Dip Stick Auto w/o Microscopy POC 50370 2. Urethral pain (R39.89: Other symptoms and [...] day(s), # 90 tab(s), Refills(s) 3, Pharmacy: [facility] [id number], 160, cm, 08/05/24 11:29:00 EST, Height/Length Dosing, 74.2, kg, 08/05/24 11:29:00 EST, Weight Dosing tamsulosin, 0.4 mg = 1 cap(s), Oral, Daily, # 90 cap(s), Refills(s) 3, Pharmacy: [facility], 160, cm, 08/05/24 11:29:00 EST, Height/Length Dosing, 74.2, kg, 08/05/24 11:29:00 EST, Weight Dosing Follow-up With When Contact Information JENNIFER MARTINO PA-C, URL Within 1 year Additional Instructions: Patient Education Kidney Stones, Aqgy-un-Hkiy Problem List/Past Medical History Ongoing Anticoagulated Feeling (more content not included)... Normal [facility] Comment on above: Result Comment: Elec [...] wk f/u. Appointment due by 06/19/2024 in [place] with [facility] PT SCHEDULED JUL 03, [address] [facility] Urology Office/Clinic Noteon 04-10-2024 Urology Office/Clinic [...] E&M of Est. Patient High 40-54 Min 31959 Urnls Dip Stick Auto w/o Microscopy POC 39715 2. OAB (overactive bladder) (N32.81: Overactive bladder) [...] E&M of Est. Patient High 40-54 Min 96784 3. Urethral pain (R39.89: Other symptoms and [...] E&M of Est. Patient High 40-54 Min 25436 Orders: estradiol topical, See Instructions, 42.5 gm, Refill(s) 6, apply a pea-sized amount vaginally and around the urethra nightly x 3 weeks, then 3x per week thereafter, [facility] #[id number], 160, cm, 04/10/24 15:13:00 EDT, Height/Length Dosing, 74, kg, 04/10/24 15:13... mirabegron, 25 mg = 1 tab(s), Oral, Daily, do not fill both mirabegron AND vibegron. only fill whichever has lower co-pay., X 30 day(s), # 30 tab(s), Refills(s) 11, Pharmacy: [facility] #[id number], 160, cm, 04/10/24 15:13:00 EDT, Height/Length Dosing, 74, k... vibegron, 75 mg = 1 tab(s), Oral, Daily, X 30 day(s), # 30 tab(s), Refills(s) 11, Pharmacy: [facility] #[id number], 160, cm, 04/10/24 15:13:00 EDT, Height/Length Dosing, 74, kg, 04/10/24 15:13:00 EDT, Weight Dosing Total time spent reviewing previous notes/results/external documents, preparing the chart, conducting the encounter with the patient and family, ordering tests/medications, and documenting the encounter was 40 minutes. Follow-up With When Contact Information JENNIFER MARTINO PA-C, URL Within 3 months [address] [place] [address] Additional Instructions: Patient Education Kidney Stones, Ojym-ub-Sgze Problem List/Past Medical History Ongoing Anticoagulated Feeling of incomplete b (more content not included)... Normal [facility] Comment on above: Result Comment: Elec tronically Signed By: JENNIFER MARTINO PA-C\.br\Date and Time Signed: 04/10/24 16:09 EDT Glucose Glucometer (BldC) [M ass/Vol]on 03-06-2024 Glucose [Mass/Vol] 79 mg/dL Normal 65-99 [facility] Lab Reportson 01-23-2024 Lab Reports [id number]#1.00TIFF Normal [facility] Lab Reports [id number]#1.00TIFF Normal [facility] Lab Reportson 01-22-2024 Lab Reports [id number]#1.00TIFF Normal [facility] Lab Reports [id number]#1.00TIFF Normal [facility] Lab Reports [id number]#1.00TIFF Normal [facility] RAD - MISCon 01-22-2024 RAD - MISC [id number]#1.00TIFF Normal [facility] Surgical Pathology Reporton 06-18-2023 Surgical Pathology Report (NOTE) Path Number: [id number] -- Diagnosis -- ENDOMETRIAL CURETTINGS: -BENIGN ENDOMETRIAL [...] Microscopic Description Microscopic examination performed. Processing Lab: [facility] [address] [place] [id number] Interpretation Performed at [facility] [address] [place], [place] SURGICAL PATHOLOGY CONSULTATION Patient Name: JOSE ALBERTO SALEEM [facility] Rec: [id number] [facility] [employer] [facility] ANATOMIC PATHOLOGY [address] [place] [address]. [place], [place] [address] Normal [facility] NON OB TRANSVAGINALon US NON [...] Tello DO 06/05/23 Final result Normal [facility] Ceruloplasminon 12-12-2022 Ceruloplasmin 30.6 mg/dL 19.0-39.0 mg/dL [facility] Other Ferritinon 12-12-2022 Ferritin [Mass/Vol] 43.2940114 ng/mL Normal 11.0 -306.8 ng/mL [facility] Other Hepatitis A Antibody Totalon 12-12-2022 Hepatitis A Antibody Total Negative . [facility] Other Hepatitis B Surface Antibody on 12-12-2022 Hepatitis B Surface Antibody Non-Reactive Non Reactive [facility] Other Immunoglobulin Javi Immunoglobulin G 823 mg/dL 586-1602 mg/dL [facility] Other Liver-Kidney Microsomal Abon 12-12-2022 Liver-Kidney Microsomal Ab 1.1 0.0-20.0 [facility] Other Mitochondrial (M2) Antibodyo n 12-12-2022 Mitochondrial (M2) Antibody <20.0 0.0-20.0 [facility] Other Smooth Muscle Antibodyon Smooth Muscle Antibody 5 0-19 No rt [facility] Other MR MRCPon 11-10-2022 MR MRCP [facility] Other MR MRCP [facility] Other MR MRCP [address] [facility] [place] [address] [facility] Other MR MRCP MRI Report [facility] Other MR MRCP Signed [facility] [employer] [facility] Other MR MRCP Patient: Danika Saleem MR#: [id number] [facility] Other MR MRCP 571 [facility] Other MR MRCP : 1965 Acct:[id number] [facility] Other MR MRCP Age/Sex: 57 / F ADM Date: 11/10/22 [facility] Other MR MRCP Loc: MR Room: Type: [facility] Other MR MRCP Attending Dr: Evert salinas MD [facility] Other MR MRCP Copies to: Evert Bruno MD [facility] Other MR MRCP Ordering Provider: Marleny Bruno MD [facility] Other MR MRCP Date of Service: 11/10/22 [facility] Other MR MRCP MR/MR MRCP: Abdominal pain;Common bile duct dilatation;Elevated liver en [facility] Other MR MRCP MRCP [facility] Other MR MRCP CLINICAL DATA: [place] hayley lipase. Abnormal outside abdominal CT [facility] Other MR MRCP COMPARISON: CT abdom en 10/16/2022 [facility] [employer] [employer] [facility] Other MR MRCP Multiecho imaging of the abdomen was performed along with radial imaging of the biliary tree. [facility] Other MR MRCP The gallbladder surgically absent. There is no significant intrahepatic biliary dilatation. The [facility] Other MR MRCP common duct is sligh tly prominent measuring up to 6 mm. It tapers toward the ampulla. No in [facility] Other MR MRCP traluminal filling defects are identified to suggest choledocholithiasis. The pancreatic duct is [facility] Other MR MRCP also borderline prom inent measuring 2 - 3 mm. No intrahepatic masses are identified. No pancreatic [facility] Other MR MRCP abnormalities are no hayley. The spleen and adrenal glands are within normal limits. There is no [facility] Other MR MRCP hydronephrosis. Ther e are right renal cysts. There is no aortic aneurysm. No adenopathy or [facility] Other MR MRCP ascites is seen. The re is no dilated bowel within the vnvgf-[id number]. [facility] Other MR MRCP M R/MR MRCP [facility] Other MR MRCP IMPRESSION: [facility] Other MR MRCP SLIGHTLY PROMINENT C OMMON DUCT, WITHOUT CHOLEDOCHOLITHIASIS. THIS MAY RELATE TO PREVIOUS [facility] Other MR MRCP CHOLECYSTECTOMY. [facility] Other MR MRCP RIGHT RENAL CYSTS. [facility] Other MR MRCP NO OTHER SIGNIFICANT MRI FINDINGS. [facility] Other MR MRCP Impression dictated by: Thelma Wick M.D.11/10/2022 7:00 PM [facility] Other MR MRCP Dictation Location: [place] [address] [facility] Other MR MRCP Transcribed By: PWS 11/10/221899 [facility] Other MR MRCP Dictated By: Thelma Wick MD 11/10/221849 [facility] Other MR MRCP Signed By: [facility] Other MR MRCP 11/10/221899 [facility] Other Albumin [Mass/volume] in Ser um or PlasmaOrdered By: Evert Bruno on 11-01-2022 Albumin [Mass/Vol] 4.0 g/dL 3.2-5.5 [facility] Direct bilirubin measurement Ordered By: Imsara Bruno on 11-01-2022 Bilirubin.direct [Mass/Vol] 0.1 mg/dL 0.0-0.4 [facility] Globulin Calc (S) [Mass/Vol] Ordered By: Imsara Bruno on 11-01-2022 Globulin (S) [Mass/Vol] 2.5 g/dL [facility] Hepatic Panelon 11-01-2022 Albumin [Mass/Vol] 4.603217 g/dL Normal 3.2-5.5 g/dL [facility] Other ALT [Catalytic activity/Vol] 94 U/L High 10-60 U/L [facility] Other Bilirubin [Mass/Vol] 0.2711752 mg/dL Normal 0.3- 1.2 mg/dL [facility] Other Bilirubin.indirect [Mass/Vol] 0.9244940 mg/dL Normal 0.0-0.4 mg/dL [facility] Other Protein [Mass/Vol] 6.359484 g/dL Normal 6.1-7.9 g/dL [facility] Other Hepatic Panel 0.5 mg/dL [facility] Other Hepatic Panel 2.5 g/dL [facility] Other Protein [Mass/volume] in Ser um or PlasmaOrdered By: Evert Bruno on 11-01-2022 Protein [Mass/Vol] 6.5 g/dL 6.1-7.9 [facility] Serum or plasma alanine li otransferase measurement without P-5'-P (enzymatic activiOrdered By: Evert Bruno on 11-01-2022 ALT No additional P-5'-P [Catalytic activity/Vol] 94 U/L 10-60 [facility] Serum or plasma albumin/glob ulin mass ratioOrdered By: Evert Bruno on 11-01-2022 Albumin/Globulin [Mass ratio] 1.6 {ratio} [facility] Serum or plasma alkaline monster sphatase measurement (enzymatic activity/volume)Ordered By: Evert Bruno on 11-01-2022 ALP [Catalytic activity/Vol] 93 U/L 32-92 [facility] Serum or plasma aspartate am inotransferase measurement (enzymatic activity/volume)Ordered By: Evert Bruno on 11-01-2022 AST [Catalytic activity/Vol] 66 U/L 10-42 [facility] Serum or plasma non-glucuron idated bilirubin measurement (mass/volume)Ordered By: Evert Bruno on 11-01-2022 Bilirubin.indirect [Mass/Vol] 0.5 mg/dL [facility] Serum or plasma total biliru bin measurement (mass/volume)Ordered By: Evert Bruno on 11-01-2022 Bilirubin [Mass/Vol] 0.6 mg/dL 0.3-1.[address] [facility] [address] ABDOMEN WO/W CONon 2022 CT ABDOMEN [...] JAE WILSON Date: 2022-10-17 08:23 Normal [facility] AMMONIAon 10-09-2022 Ammonia (P) [Moles/Vol] 10 umol/L Critically low 11-32 [facility] Comment on above: Performed By: #### A MY #### [facility] [address] [place] [address] Dr. Ayden Cam AMYLASEon 10-09-2022 Amylase [Catalytic activity/Vol] 144 U/L Critically high 25-115 [facility] Comment on above: Performed By: #### L IPA #### [facility] [address] [place] [address] Dr. Ayden Cam CBC AUTO DIFFon 10-09-2022 BASO # 0.0 103/ul Normal 0.0-0.1 [facility] Comment on above: Performed By: #### C BC #### [facility] [address] [place] [address] Dr. Ayden Cam Basophils/100 WBC (Bld) 0.2 % Normal 0.2-2.0 [facility] Comment on above: Performed By: #### C BC #### [facility] [address] [place] [address] Dr. Ayden Cam EO # 0.2 103/ul Normal 0.0-0.7 [facility] Comment on above: Performed By: #### C BC #### [facility] [address] [place] [address] Dr. Ayden Cam Eosinophils/100 WBC (Bld) 3.3 % Normal 0.9-7.0 [facility] Comment on above: Performed By: #### C BC #### [facility] [address] [place] [address] Dr. Ayden Cam Erythrocyte distribution width (RBC) [Ratio] 12.1 % Normal 11.0-15.0 [facility] Comment on above: Performed By: #### C BC #### [facility] [address] [place] [address] Dr. Ayden Cam Hematocrit (Bld) [Volume fraction] 40.0 % Normal 36.0-48.0 [facility] Comment on above: Performed By: #### C BC #### [facility] [address] [place] [address] Dr. Ayden Cam Hemoglobin (Bld) [Mass/Vol] 14.2 g/dL Normal 12.0-16.0 [facility] Comment on above: Performed By: #### C BC #### [facility] [address] [place] [address] Dr. Ayden Cam IG # 0.01 10e3/ul Normal 0.00-0.03 [facility] Comment on above: Performed By: #### C BC #### [facility] [address] [place] [address] Dr. Ayden Cma IG % 0.2 % Normal 0.0-0.5 [facility] Comment on above: Performed By: #### C BC #### [facility] [address] [place] [address] Dr. Ayden Cam LYMPH # 1.5 103/ul Normal 1.2-3.8 [facility] Comment on above: Performed By: #### C BC #### [facility] [address] [place] [address] Dr. Ayden Cam Lymphocytes/100 WBC (Bld) 24.2 % Normal 20.5-60.0 [facility] Comment on above: Performed By: #### C BC #### [facility] [address] [place] [address] Dr. Ayden Cam MANUAL DIFF REQ NO Normal [facility] Comment on above: Performed By: #### C BC #### [facility] [address] [place] [address] Dr. Ayden Cam MCH (RBC) [Entitic mass] 30.0 pg Normal 26.7-34.0 [facility] Comment on above: Performed By: #### C BC #### [facility] [address] [place] [address] Dr. Aydne Cam MCHC (RBC) [Mass/Vol] 35.5 g/dL Critically high 29.9-35.2 [facility] Comment on above: Performed By: #### C BC #### [facility] [address] [place] [address] Dr. Ayden Cam MCV (RBC) [Entitic vol] 84.4 fL Normal 81.0-99.0 [facility] Comment on above: Performed By: #### C BC #### [facility] [address] [place] [address] Dr. Ayden Cam MONO # 0.6 103/ul Normal 0.3-0.8 [facility] Comment on above: Performed By: #### C BC #### [facility] [address] [place] [address] Dr. Ayden Cam Monocytes/100 WBC (Bld) 10.3 % Normal 1.7-12.0 [facility] Comment on above: Performed By: #### C BC #### [facility] [address] [place] [address] Dr. Ayden Cam NEUT # 3.7 103/ul Normal 1.4-6.5 [facility] Comment on above: Performed By: #### C BC #### [facility] [address] [address] [address] Ayden Cam Neutrophils/100 WBC (Bld) 61.8 % Normal 43.0-75.0 [facility] Comment on above: Performed By: #### C BC #### [facility] [address] [place] [address] Dr. Ayden aCm Platelet mean volume (Bld) [Entitic vol] 9.0 fL Critically low 9.5-13.5 [facility] Comment on above: Performed By: #### C BC #### [facility] [address] [address] [address] Ayden Cam PLT 191 103/ul Normal 150-450 [facility] Comment on above: Performed By: #### C BC #### [facility] [address] [place] [address] Dr. Ayden Cam RBC 4.74 106/ul Normal 4.20-5.40 [facility] Comment on above: Performed By: #### C BC #### [facility] [address] [place] [address] Dr. Ayden Cam WBC 6.0 103/ul Normal 4.0-11.0 [facility] Comment on above: Performed By: #### C BC #### [facility] [address] [place] [address] Dr. Ayden Cam LIPASEon 10-09-2022 Lipase [Catalytic activity/Vol] 168.0 U/L Normal 73.0-393.0 [facility] Comment on above: Performed By: #### L ACT #### [facility] [address] [place] [address] Dr. Ayden Cam PROF 14(COMP METB)on 023 Albumin [Mass/Vol] 3.6 g/dL Normal 3.4-5.0 [facility] Comment on above: Performed By: #### L IPA #### [facility] [address] [place] [address] Dr. Ayden Cam Albumin/Globulin [Mass ratio] 1.1 {ratio} Normal [facility] Comment on above: Performed By: #### L IPA #### [facility] [address] [place] [address] Dr. Ayden Cam ALP [Catalytic activity/Vol] 93 U/L Normal 46-116 [facility] Comment on above: Performed By: #### L IPA #### [facility] [address] [address] [address] Ayden Cam ALT [Catalytic activity/Vol] 52 U/L Normal 14-59 [facility] Comment on above: Performed By: #### L IPA #### [facility] [address] [place] [address] Dr. Ayden Cam Anion gap [Moles/Vol] 10.2 mmol/L Normal [facility] Comment on above: Performed By: #### L IPA #### [facility] [address] [place] [address] Dr. Ayden Cam AST [Catalytic activity/Vol] 33 U/L Normal 15-37 [facility] Comment on above: Performed By: #### L IPA #### [facility] [address] [place] [address] Dr. Ayden Cam Bilirubin [Mass/Vol] 0.3 mg/dL Normal 0.2-1.0 [facility] Comment on above: Performed By: #### L IPA #### [facility] [address] [place] [address] Dr. Ayden Cam Calcium [Mass/Vol] 9.4 mg/dL Normal 8.5-10.1 [facility] Comment on above: Performed By: #### L IPA #### [facility] [address] [place] [address] Dr. Ayden Cam Chloride [Moles/Vol] 99 mmol/L Normal 98-107 [facility] Comment on above: Performed By: #### L IPA #### [facility] [address] [place] [address] Dr. Ayden Cam CO2 [Moles/Vol] 33.7 mmol/L Critically high 21.0-32.0 [facility] Comment on above: Performed By: #### L IPA #### [facility] [address] [place] [address] Dr. Ayden Cam Creatinine [Mass/Vol] 0.62 mg/dL Normal 0.55-1.02 [facility] Comment on above: Performed By: #### L IPA #### [facility] [address] [place] [address] Dr. Ayden Cam EGFR-AF RUSSIAN >60 Normal >=60 [facility] Comment on above: Performed By: #### L IPA #### [facility] [address] [address] [address] Ayden Cam EGFR-NON AF RUSSIAN >60 Normal >=60 [facility] Comment on above: Performed By: #### L IPA #### [facility] [address] [place] [address] Dr. Ayden Cam Globulin (S) [Mass/Vol] 3.4 g/dL Normal [facility] Comment on above: Performed By: #### L IPA #### [facility] [address] [place] [address] Dr. Ayden Cam Glucose [Mass/Vol] 105 mg/dL Normal 74-106 [facility] Comment on above: Performed By: #### L IPA #### [facility] [address] [place] [address] Dr. Ayden Cam Potassium [Moles/Vol] 3.9 mmol/L Normal 3.5-5.1 [facility] Comment on above: Performed By: #### L IPA #### [facility] [address] [place] [address] Dr. Ayden Cam Protein [Mass/Vol] 7.0 g/dL Normal 6.4-8.2 [facility] Comment on above: Performed By: #### L IPA #### [facility] [address] [address] [address] Ayden Cam Sodium [Moles/Vol] 139 mmol/L Normal 136-145 [facility] Comment on above: Performed By: #### L IPA #### [facility] [address] [place] [address] Dr. Ayden Cam Urea nitrogen [Mass/Vol] 28.0 mg/dL Critically high 7.0-18.0 [facility] Comment on above: Performed By: #### L IPA #### [facility] [address] [place] [address] Dr. Ayden Cam Urea nitrogen/Creatinine [Mass ratio] 45.2 mg/mg Normal [facility] Comment on above: Performed By: #### L IPA #### [facility] [address] [place] [address] Dr. Ayden Cam AMMONIAon 10-06-2022 Ammonia (P) [Moles/Vol] 16 umol/L Normal 11-32 [facility] Comment on above: Performed By: #### A MM #### [facility] [address] [place] [address] Dr. Ayden Cam AMYLASEon 10-06-2022 Amylase [Catalytic activity/Vol] 189 U/L Critically high 25-115 [facility] Comment on above: Performed By: #### L IPA #### [facility] [address] [place] [address] Dr. Ayden Cam CBC AUTO DIFFon 10-06-2022 BASO # 0.0 103/ul Normal 0.0-0.1 [facility] Comment on above: Performed By: #### C BC #### [facility] [address] [place] [address] Dr. Ayden Cam Basophils/100 WBC (Bld) 0.2 % Normal 0.2-2.0 [facility] Comment on above: Performed By: #### C BC #### [facility] [address] [place] [address] Dr. Ayden Cam EO # 0.3 103/ul Normal 0.0-0.7 [facility] Comment on above: Performed By: #### C BC #### [facility] [address] [place] [address] Dr. Ayden Cam Eosinophils/100 WBC (Bld) 5.2 % Normal 0.9-7.0 [facility] Comment on above: Performed By: #### C BC #### [facility] [address] [place] [address] Dr. Ayden Cam Erythrocyte distribution width (RBC) [Ratio] 12.3 % Normal 11.0-15.0 [facility] Comment on above: Performed By: #### C BC #### [facility] [address] [place] [address] Dr. Ayden Cam Hematocrit (Bld) [Volume fraction] 36.9 % Normal 36.0-48.0 [facility] Comment on above: Performed By: #### C BC #### [facility] [address] [place] [address] Dr. Ayden Cam Hemoglobin (Bld) [Mass/Vol] 12.4 g/dL Normal 12.0-16.0 [facility] Comment on above: Performed By: #### C BC #### [facility] [address] [place] [address] Dr. Ayden Cam IG # 0.01 10e3/ul Normal 0.00-0.03 [facility] Comment on above: Performed By: #### C BC #### [facility] [address] [place] [address] Dr. Ayden Cam IG % 0.2 % Normal 0.0-0.5 [facility] Comment on above: Performed By: #### C BC #### [facility] [address] [place] [address] Dr. Ayden Cam LYMPH # 1.8 103/ul Normal 1.2-3.8 [facility] Comment on above: Performed By: #### C BC #### [facility] [address] [place] [address] Dr. Ayden Cam Lymphocytes/100 WBC (Bld) 31.3 % Normal 20.5-60.0 [facility] Comment on above: Performed By: #### C BC #### [facility] [address] [place] [address] Dr. Ayden Cam MANUAL DIFF REQ NO Normal [facility] Comment on above: Performed By: #### C BC #### [facility] [address] [place] [address] Dr. Ayden Cam MCH (RBC) [Entitic mass] 30.0 pg Normal 26.7-34.0 [facility] Comment on above: Performed By: #### C BC #### [facility] [address] [address] [address] Ayden Cam MCHC (RBC) [Mass/Vol] 33.6 g/dL Normal 29.9-35.2 [facility] Comment on above: Performed By: #### C BC #### [facility] [address] [address] [address] Ayden Cam MCV (RBC) [Entitic vol] 89.1 fL Normal 81.0-99.0 [facility] Comment on above: Performed By: #### C BC #### [facility] [address] [place] [address] Dr. Ayden Cam MONO # 0.6 103/ul Normal 0.3-0.8 [facility] Comment on above: Performed By: #### C BC #### [facility] [address] [place] [address] Dr. Ayden Cam Monocytes/100 WBC (Bld) 10.1 % Normal 1.7-12.0 [facility] Comment on above: Performed By: #### C BC #### [facility] [address] [place] [address] Dr. Ayden Cam NEUT # 3.1 103/ul Normal 1.4-6.5 [facility] Comment on above: Performed By: #### C BC #### [facility] [address] [place] [address] Dr. Ayden Cam Neutrophils/100 WBC (Bld) 53.0 % Normal 43.0-75.0 [facility] Comment on above: Performed By: #### C BC #### [facility] [address] [place] [address] Dr. Ayden Cam Platelet mean volume (Bld) [Entitic vol] 9.4 fL Critically low 9.5-13.5 [facility] Comment on above: Performed By: #### C BC #### [facility] [address] [place] [address] Dr. Ayden Cam PLT 153 103/ul Normal 150-450 [facility] Comment on above: Performed By: #### C BC #### [facility] [address] [address] [address] Ayden Cam RBC 4.14 106/ul Critically low 4.20-5.40 [facility] Comment on above: Performed By: #### C BC #### [facility] [address] [place] [address] Dr. Ayden Cam WBC 5.8 103/ul Normal 4.0-11.0 [facility] Comment on above: Performed By: #### C BC #### [facility] [address] [place] [address] Dr. Ayden Cam LIPASEon 10-06-2022 Lipase [Catalytic activity/Vol] 166.0 U/L Normal 73.0-393.0 [facility] Comment on above: Performed By: #### L IPA #### [facility] [address] [place] [address] Dr. Ayden Cam LIVER PROFILEon 10-06-2022 Albumin [Mass/Vol] 3.2 g/dL Critically low 3.4-5.0 [facility] Comment on above: Performed By: #### L IPA #### [facility] [address] [place] [address] Dr. Ayden Cam Albumin/Globulin [Mass ratio] 1.3 {ratio} Normal [facility] Comment on above: Performed By: #### L IPA #### [facility] [address] [place] [address] Dr. Ayden Cam ALP [Catalytic activity/Vol] 88 U/L Normal 46-116 [facility] Comment on above: Performed By: #### L IPA #### [facility] [address] [place] [address] Dr. Ayden Cam ALT [Catalytic activity/Vol] 66 U/L Critically high 14-59 [facility] Comment on above: Performed By: #### L IPA #### [facility] [address] [place] [address] Dr. Ayden Cam AST [Catalytic activity/Vol] 39 U/L Critically high 15-37 [facility] Comment on above: Performed By: #### L IPA #### [facility] [address] [address] [address] Ayden Cam BILI, CONJUGATED 0.1 mg/dL Normal 0.0-0.2 [facility] Comment on above: Performed By: #### L IPA #### [facility] [address] [address] [address] Ayden Cam Bilirubin [Mass/Vol] 0.4 mg/dL Normal 0.2-1.0 [facility] Comment on above: Performed By: #### L IPA #### [facility] [address] [address] [address] Ayden Cam Globulin (S) [Mass/Vol] 2.4 g/dL Normal [facility] Comment on above: Performed By: #### L IPA #### [facility] [address] [place] [address] Dr. Ayden Cam Protein [Mass/Vol] 5.6 g/dL Critically low 6.4-8.2 [facility] Comment on above: Performed By: #### L IPA #### [facility] [address] [address] [address] Ayden Cam PROF CHEM 8 (BAS METB)on Anion gap [Moles/Vol] 6.8 mmol/L Normal [facility] Comment on above: Performed By: #### L IPA #### [facility] [address] [address] [address] Ayden Cam Calcium [Mass/Vol] 8.6 mg/dL Normal 8.5-10.1 [facility] Comment on above: Performed By: #### L IPA #### [facility] [address] [address] [address] Ayden Cam Chloride [Moles/Vol] 102 mmol/L Normal 98-107 [facility] Comment on above: Performed By: #### L IPA #### [facility] [address] [address] [address] Ayden Cam CO2 [Moles/Vol] 32.6 mmol/L Critically high 21.0-32.0 [facility] Comment on above: Performed By: #### L IPA #### [facility] [address] [address] [address] Ayden Cam Creatinine [Mass/Vol] 0.61 mg/dL Normal 0.55-1.02 [facility] Comment on above: Performed By: #### L IPA #### [facility] [address] [address] [address] Ayden Cam EGFR-AF RUSSIAN >60 Normal >=60 [facility] Comment on above: Performed By: #### L IPA #### [facility] [address] [address] [address] Ayden Cam EGFR-NON AF RUSSIAN >60 Normal >=60 [facility] Comment on above: Performed By: #### L IPA #### [facility] [address] [address] [address] Ayden Cam Glucose [Mass/Vol] 91 mg/dL Normal 74-106 [facility] Comment on above: Performed By: #### L IPA #### [facility] [address] [address] [address] Ayden Cam Potassium [Moles/Vol] 3.4 mmol/L Critically low 3.5-5.1 [facility] Comment on above: Performed By: #### L IPA #### [facility] [address] [place] [address] Dr. Ayden Cam Sodium [Moles/Vol] 138 mmol/L Normal 136-145 [facility] Comment on above: Performed By: #### L IPA #### [facility] [address] [address] [address] Ayden Cam Urea nitrogen [Mass/Vol] 13.0 mg/dL Normal 7.0-18.0 [facility] Comment on above: Performed By: #### L IPA #### [facility] [address] [address] [address] Ayden Cam Urea nitrogen/Creatinine [Mass ratio] 21.3 mg/mg Normal [facility] Comment on above: Performed By: #### L IPA #### [facility] [address] [place] [address] Dr. Ayden Cam AMMONIAon 10-05-2022 Ammonia (P) [Moles/Vol] 10 umol/L Critically low 11-32 [facility] Comment on above: Performed By: #### A MM #### [facility] [address] [place] [address] Dr. Ayden Cam AMYLASEon 10-05-2022 Amylase [Catalytic activity/Vol] 109 U/L Normal 25-115 [facility] Comment on above: Performed By: #### A MY #### [facility] [address] [place] [address] Dr. Ayden Cam CBC AUTO DIFFon 10-05-2022 BASO # 0.0 103/ul Normal 0.0-0.1 [facility] Comment on above: Performed By: #### L IPA #### [facility] [address] [place] [address] Dr. Ayden Cam Basophils/100 WBC (Bld) 0.3 % Normal 0.2-2.0 [facility] Comment on above: Performed By: #### L IPA #### [facility] [address] [place] [address] Dr. Ayden Cam EO # 0.3 103/ul Normal 0.0-0.7 [facility] Comment on above: Performed By: #### L IPA #### [facility] [address] [place] [address] Dr. Ayden Cam Eosinophils/100 WBC (Bld) 4.3 % Normal 0.9-7.0 [facility] Comment on above: Performed By: #### L IPA #### [facility] [address] [place] [address] Dr. Ayden Cam Erythrocyte distribution width (RBC) [Ratio] 12.2 % Normal 11.0-15.0 [facility] Comment on above: Performed By: #### L IPA #### [facility] [address] [place] [address] Dr. Ayden Cam Hematocrit (Bld) [Volume fraction] 38.9 % Normal 36.0-48.0 [facility] Comment on above: Performed By: #### L IPA #### [facility] [address] [address] [address] Ayden Cam Hemoglobin (Bld) [Mass/Vol] 12.8 g/dL Normal 12.0-16.0 [facility] Comment on above: Performed By: #### L IPA #### [facility] [address] [address] [address] Ayden Cam IG # 0.01 10e3/ul Normal 0.00-0.03 [facility] Comment on above: Performed By: #### L IPA #### [facility] [address] [place] [address] Dr. Ayden Cam IG % 0.2 % Normal 0.0-0.5 [facility] Comment on above: Performed By: #### L IPA #### [facility] [address] [place] [address] Dr. Ayden Cam LYMPH # 1.9 103/ul Normal 1.2-3.8 [facility] Comment on above: Performed By: #### L IPA #### [facility] [address] [place] [address] Dr. Ayden Cam Lymphocytes/100 WBC (Bld) 31.4 % Normal 20.5-60.0 [facility] Comment on above: Performed By: #### L IPA #### [facility] [address] [place] [address] Dr. Ayden Cam MANUAL DIFF REQ NO Normal [facility] Comment on above: Performed By: #### L IPA #### [facility] [address] [place] [address] Dr. Ayden Cam MCH (RBC) [Entitic mass] 29.6 pg Normal 26.7-34.0 [facility] Comment on above: Performed By: #### L IPA #### [facility] [address] [place] [address] Dr. Ayden Cam MCHC (RBC) [Mass/Vol] 32.9 g/dL Normal 29.9-35.2 [facility] Comment on above: Performed By: #### L IPA #### [facility] [address] [address] [address] Ayden Cam MCV (RBC) [Entitic vol] 89.8 fL Normal 81.0-99.0 [facility] Comment on above: Performed By: #### L IPA #### [facility] [address] [address] [address] Ayden Cam MONO # 0.6 103/ul Normal 0.3-0.8 [facility] Comment on above: Performed By: #### L IPA #### [facility] [address] [address] [address] Ayden Cam Monocytes/100 WBC (Bld) 10.1 % Normal 1.7-12.0 [facility] Comment on above: Performed By: #### L IPA #### [facility] [address] [place] [address] Dr. Ayden Cam NEUT # 3.2 103/ul Normal 1.4-6.5 [facility] Comment on above: Performed By: #### L IPA #### [facility] [address] [place] [address] Dr. Ayden Cam Neutrophils/100 WBC (Bld) 53.7 % Normal 43.0-75.0 [facility] [facility] Comment on above: Performed By: #### L IPA #### [facility] [address] [place] [address] Dr. Ayden Cam Platelet mean volume (Bld) [Entitic vol] 9.7 fL Normal 9.5-13.5 [facility] Comment on above: Performed By: #### L IPA #### [facility] [address] [place] [address] Dr. Ayden Cam PLT 168 103/ul Normal 150-450 [facility] Comment on above: Performed By: #### L IPA #### [facility] [address] [place] [address] Dr. Ayden Cam RBC 4.33 106/ul Normal 4.20-5.40 [facility] Comment on above: Performed By: #### L IPA #### [facility] [address] [place] [address] Dr. Ayden Cam WBC 6.0 103/ul Normal 4.0-11.0 [facility] Comment on above: Performed By: #### L IPA #### [facility] [address] [place] [address] Dr. Ayden Cam LIPASEon 10-05-2022 Lipase [Catalytic activity/Vol] 151.0 U/L Normal 73.0-393.0 [facility] Comment on above: Performed By: #### L IPA #### [facility] [address] [place] [address] Dr. Ayden Cam LIVER PROFILEon 10-05-2022 Albumin [Mass/Vol] 3.2 g/dL Critically low 3.4-5.0 [facility] Comment on above: Performed By: #### L ACT #### [facility] [address] [place] [address] Dr. Ayden Cam Albumin/Globulin [Mass ratio] 1.1 {ratio} Normal [facility] Comment on above: Performed By: #### L ACT #### [facility] [address] [place] [address] Dr. Ayden Cam ALP [Catalytic activity/Vol] 82 U/L Normal 46-116 [facility] Comment on above: Performed By: #### L ACT #### [facility] [address] [place] [address] Dr. Ayden Cam ALT [Catalytic activity/Vol] 70 U/L Critically high 14-59 [facility] Comment on above: Performed By: #### L ACT #### [facility] [address] [place] [address] Dr. Ayden Cam AST [Catalytic activity/Vol] 36 U/L Normal 15-37 [facility] Comment on above: Performed By: #### L ACT #### [facility] [address] [place] [address] Dr. Ayden Cam BILI, CONJUGATED 0.1 mg/dL Normal 0.0-0.2 [facility] Comment on above: Performed By: #### L ACT #### [facility] [address] [place] [address] Dr. Ayden Cam Bilirubin [Mass/Vol] 0.3 mg/dL Normal 0.2-1.0 [facility] Comment on above: Performed By: #### L ACT #### [facility] [address] [address] [address] Ayden Cam Globulin (S) [Mass/Vol] 3.0 g/dL Normal [facility] Comment on above: Performed By: #### L ACT #### [facility] [address] [address] [address] Ayden Cam Protein [Mass/Vol] 6.2 g/dL Critically low 6.4-8.2 [facility] Comment on above: Performed By: #### L ACT #### [facility] [address] [place] [address] Dr. Ayden Cam PROF CHEM 8 (BAS METB)on Anion gap [Moles/Vol] 9.5 mmol/L Normal [facility] Comment on above: Performed By: #### B MP #### [facility] [address] [place] [address] Dr. Ayden Cam Calcium [Mass/Vol] 8.9 mg/dL Normal 8.5-10.1 [facility] Comment on above: Performed By: #### B MP #### [facility] [address] [place] [address] Dr. Ayden Cam Chloride [Moles/Vol] 105 mmol/L Normal 98-107 [facility] Comment on above: Performed By: #### B MP #### [facility] [address] [place] [address] Dr. Ayden Cam CO2 [Moles/Vol] 29.6 mmol/L Normal 21.0-32.0 [facility] Comment on above: Performed By: #### B MP #### [facility] [address] [place] [address] Dr. Ayden Cam Creatinine [Mass/Vol] 0.56 mg/dL Normal 0.55-1.02 [facility] Comment on above: Performed By: #### B MP #### [facility] [address] [address] [address] Ayden Cam EGFR-AF RUSSIAN >60 Normal >=60 [facility] Comment on above: Performed By: #### B MP #### [facility] [address] [address] [address] Ayden Cam EGFR-NON AF RUSSIAN >60 Normal >=60 [facility] Comment on above: Performed By: #### B MP #### [facility] [address] [address] [address] Ayden Cam Glucose [Mass/Vol] 88 mg/dL Normal 74-106 [facility] Comment on above: Performed By: #### B MP #### [facility] [address] [place] [address] Dr. Ayden Cam Potassium [Moles/Vol] 4.1 mmol/L Normal 3.5-5.1 [facility] Comment on above: Performed By: #### B MP #### [facility] [address] [place] [address] Dr. Ayden Cam Sodium [Moles/Vol] 140 mmol/L Normal 136-145 [facility] Comment on above: Performed By: #### B MP #### [facility] [address] [place] [address] Dr. Ayden Cam Urea nitrogen [Mass/Vol] 15.0 mg/dL Normal 7.0-18.0 [facility] Comment on above: Performed By: #### B MP #### [facility] [address] [place] [address] Dr. Ayden Cam Urea nitrogen/Creatinine [Mass ratio] 26.8 mg/mg Normal [facility] Comment on above: Performed By: #### B MP #### [facility] [address] [place], [place] [id number] Dr. Ayden Cam US Jhony 10-05-2022 US [...] RONAN TORIBIO Date: 2022-10-05 09:52 Normal [facility] XR KUB 1 VIEWon 10-05-2022 XR [...] RONAN TORIBIO Date: 2022-10-05 09:55 Normal [facility] AMYLASEon 10-04-2022 Amylase [Catalytic activity/Vol] 124 U/L Critically high 25-115 [facility] Comment on above: Performed By: #### L IPA, COLE, CMP #### [facility] [address] [address] [address] Ayden Cam CBC AUTO DIFFon 10-04-2022 BASO # 0.0 103/ul Normal 0.0-0.1 [facility] Comment on above: Performed By: #### L IPA #### [facility] [address] [address] [address] Ayden Cam Basophils/100 WBC (Bld) 0.3 % Normal 0.2-2.0 [facility] Comment on above: Performed By: #### L IPA #### [facility] [address] [place] [address] Dr. Ayden Cam EO # 0.2 103/ul Normal 0.0-0.7 [facility] Comment on above: Performed By: #### L IPA #### [facility] [address] [place] [address] Dr. Ayden Cam Eosinophils/100 WBC (Bld) 2.9 % Normal 0.9-7.0 [facility] Comment on above: Performed By: #### L IPA #### [facility] [address] [place] [address] Dr. Ayden Cam Erythrocyte distribution width (RBC) [Ratio] 12.3 % Normal 11.0-15.0 [facility] Comment on above: Performed By: #### L IPA #### [facility] [address] [place] [address] Dr. Ayden Cam Hematocrit (Bld) [Volume fraction] 42.0 % Normal 36.0-48.0 [facility] Comment on above: Performed By: #### L IPA #### [facility] [address] [place] [address] Dr. Ayden Cam Hemoglobin (Bld) [Mass/Vol] 14.3 g/dL Normal 12.0-16.0 [facility] Comment on above: Performed By: #### L IPA #### [facility] [address] [place] [address] Dr. Ayden Cam IG # 0.02 10e3/ul Normal 0.00-0.03 [facility] Comment on above: Performed By: #### L IPA #### [facility] [address] [place] [address] Dr. Ayden Cam IG % 0.3 % Normal 0.0-0.5 [facility] Comment on above: Performed By: #### L IPA #### [facility] [address] [place] [address] Dr. Ayden Cam LYMPH # 1.7 103/ul Normal 1.2-3.8 [facility] Comment on above: Performed By: #### L IPA #### [facility] [address] [place] [address] Dr. Ayden Cam Lymphocytes/100 WBC (Bld) 22.5 % Normal 20.5-60.0 [facility] Comment on above: Performed By: #### L IPA #### [facility] [address] [place] [address] Dr. Ayden Cam MANUAL DIFF REQ NO Normal [facility] Comment on above: Performed By: #### L IPA #### [facility] [address] [place] [address] Dr. Ayden Cam MCH (RBC) [Entitic mass] 30.1 pg Normal 26.7-34.0 [facility] Comment on above: Performed By: #### L IPA #### [facility] [address] [place] [address] Dr. Ayden Cam MCHC (RBC) [Mass/Vol] 34.0 g/dL Normal 29.9-35.2 [facility] Comment on above: Performed By: #### L IPA #### [facility] [address] [place] [address] Dr. Ayden Cam MCV (RBC) [Entitic vol] 88.4 fL Normal 81.0-99.0 [facility] Comment on above: Performed By: #### L IPA #### [facility] [address] [place] [address] Dr. Ayden Cam MONO # 0.5 103/ul Normal 0.3-0.8 [facility] Comment on above: Performed By: #### L IPA #### [facility] [address] [place] [address] Dr. Ayden Cam Monocytes/100 WBC (Bld) 6.0 % Normal 1.7-12.0 [facility] Comment on above: Performed By: #### L IPA #### [facility] [address] [place] [address] Dr. Ayden Cam NEUT # 5.2 103/ul Normal 1.4-6.5 [facility] Comment on above: Performed By: #### L IPA #### [facility] [address] [place] [address] Dr. Ayden Cam Neutrophils/100 WBC (Bld) 68.0 % Normal 43.0-75.0 [facility] Comment on above: Performed By: #### L IPA #### [facility] [address] [place] [address] Dr. Ayden Cam Platelet mean volume (Bld) [Entitic vol] 9.6 fL Normal 9.5-13.5 [facility] Comment on above: Performed By: #### L IPA #### [facility] [address] [place] [address] Dr. Ayden Cam PLT 183 103/ul Normal 150-450 [facility] Comment on above: Performed By: #### L IPA #### [facility] [address] [place] [address] Dr. Ayden Cam RBC 4.75 106/ul Normal 4.20-5.40 [facility] Comment on above: Performed By: #### L IPA #### [facility] [address] [place] [address] Dr. Ayden Cam WBC 7.6 103/ul Normal 4.0-11.0 [facility] Comment on above: Performed By: #### L IPA #### [facility] [address] [place] [address] Dr. Ayden Cam Covid-19 PCR ([facility])on SARS-CoV-2 (COVID-19) RNA LOWELL+probe Ql (Unsp spec) Not detected Normal NOT DETECTED [facility] Comment on above: Result Comment: When [...] for this test is supported by the [employer]'s declaration that [...] used). Performed By: #### L IPA #### [facility] [address] [place] [address] Dr. Ayden Cam ER URINE PROFILEon 3 Bilirubin Ql (U) Negative Normal NEGATIVE [facility] Comment on above: Performed By: #### L ACT #### [facility] [address] [place] [address] Dr. Ayden Cam Clarity (U) CLEAR Normal CLEAR [facility] Comment on above: Performed By: #### L ACT #### [facility] [address] [place] [address] Dr. Ayden Cam Color (U) LT. YELLOW Normal YELLOW [facility] Comment on above: Performed By: #### L ACT #### [facility] [address] [place] [address] Dr. Ayden Cam ERUAHD A micrscopic examina tion will be performed if indicated. Normal [facility] Comment on above: Performed By: #### L ACT #### [facility] [address] [place] [address] Dr. Ayden Cam Glucose Ql (U) Negative Normal NEGATIVE [facility] Comment on above: Performed By: #### L ACT #### [facility] [address] [place] [address] Dr. Ayden Cam Hemoglobin Ql (U) Negative Normal NEGATIVE [facility] Comment on above: Performed By: #### L ACT #### [facility] [address] [place] [address] Dr. Ayden Cam Ketones Ql (U) Negative Normal NEGATIVE [facility] Comment on above: Performed By: #### L ACT #### [facility] [address] [place] [address] Dr. Ayden Cam LEUKOCYTES Negative Normal NEGATIVE [facility] Comment on above: Performed By: #### L ACT #### [facility] [address] [place] [address] Dr. Ayden Cam Nitrite Ql (U) Negative Normal NEGATIVE [facility] Comment on above: Performed By: #### L ACT #### [facility] [address] [place] [address] Dr. Ayden Cam pH (U) 8.5 [pH] Normal 5-9 [facility] Comment on above: Performed By: #### L ACT #### [facility] [address] [place] [address] Dr. Ayden Cam SPEC GRAVITY 1.015 Normal 1.005-<=1. 025 [facility] Comment on above: Performed By: #### L ACT #### [facility] [address] [place] [address] Dr. Ayden Cam UA PROTEIN Negative Normal NEGATIVE/ TRACE [facility] Comment on above: Performed By: #### L ACT #### [facility] [address] [place] [address] Dr. Ayden Cam UR MICRO IND NOT INDICATED Normal [facility] Comment on above: Performed By: #### L ACT #### [facility] [address] [place] [address] Dr. Ayden Cam Urobilinogen Qn (U) 0.2 {Peggy'U}/dL Normal 0.2 - 1. 0 [facility] Comment on above: Performed By: #### L ACT #### [facility] [address] [place] [address] Dr. Ayden Cam LACTATE/LACTIC ACIDon 2022 Lactate [Moles/Vol] 0.8 mmol/L Normal 0.4-1.9 [facility] Comment on above: Performed By: #### L ACT #### [facility] [address] [place] [address] Dr. Ayden Cam LIPASEon 10-04-2022 Lipase [Catalytic activity/Vol] 170.0 U/L Normal 73.0-393.0 [facility] Comment on above: Performed By: #### L ACT #### [facility] [address] [place] [address] Dr. Ayden Cam PROF 14(COMP METB)on 023 Albumin [Mass/Vol] 3.8 g/dL Normal 3.4-5.0 [facility] Comment on above: Performed By: #### L ACT #### [facility] [address] [place] [address] Dr. Ayden Cam Albumin/Globulin [Mass ratio] 1.1 {ratio} Normal [facility] Comment on above: Performed By: #### L ACT #### [facility] [address] [address] [address] Ayden Cam ALP [Catalytic activity/Vol] 101 U/L Normal 46-116 [facility] Comment on above: Performed By: #### L ACT #### [facility] [address] [place] [address] Dr. Ayden Cam ALT [Catalytic activity/Vol] 94 U/L Critically high 14-59 [facility] Comment on above: Performed By: #### L ACT #### [facility] [address] [place] [address] Dr. Ayden Cam Anion gap [Moles/Vol] 11.1 mmol/L Normal [facility] Comment on above: Performed By: #### L ACT #### [facility] [address] [place] [address] Dr. Ayden Cam AST [Catalytic activity/Vol] 59 U/L Critically high 15-37 [facility] Comment on above: Performed By: #### L ACT #### [facility] [address] [place] [address] Dr. Ayden Cam Bilirubin [Mass/Vol] 0.3 mg/dL Normal 0.2-1.0 [facility] Comment on above: Performed By: #### L ACT #### [facility] [address] [place] [address] Dr. Ayden Cam Calcium [Mass/Vol] 9.5 mg/dL Normal 8.5-10.1 [facility] Comment on above: Performed By: #### L ACT #### [facility] [address] [place] [address] Dr. Ayden Cam Chloride [Moles/Vol] 99 mmol/L Normal 98-107 [facility] Comment on above: Performed By: #### L ACT #### [facility] [address] [address] [address] Ayden Cam CO2 [Moles/Vol] 29.7 mmol/L Normal 21.0-32.0 [facility] Comment on above: Performed By: #### L ACT #### [facility] [address] [address] [address] Ayden Cam Creatinine [Mass/Vol] 0.61 mg/dL Normal 0.55-1.02 [facility] Comment on above: Performed By: #### L ACT #### [facility] [address] [address] [address] Ayden Cam EGFR-AF RUSSIAN >60 Normal >=60 [facility] Comment on above: Performed By: #### L ACT #### [facility] [address] [address] [address] Ayden Cam EGFR-NON AF RUSSIAN >60 Normal >=60 [facility] Comment on above: Performed By: #### L ACT #### [facility] [address] [address] [address] Ayden Cam Globulin (S) [Mass/Vol] 3.4 g/dL Normal [facility] Comment on above: Performed By: #### L ACT #### [facility] [address] [place] [address] Dr. Ayden Cam Glucose [Mass/Vol] 111 mg/dL Critically high 74-106 [facility] Comment on above: Performed By: #### L ACT #### [facility] [address] [address] [address] Ayden Cam Potassium [Moles/Vol] 3.8 mmol/L Normal 3.5-5.1 [facility] Comment on above: Performed By: #### L ACT #### [facility] [address] [address] [address] Ayden Cam Protein [Mass/Vol] 7.2 g/dL Normal 6.4-8.2 [facility] Comment on above: Performed By: #### L ACT #### [facility] [address] [address] [address] Ayden Cam Sodium [Moles/Vol] 136 mmol/L Normal 136-145 [facility] Comment on above: Performed By: #### L ACT #### [facility] [address] [address] [address] Ayden Cam Urea nitrogen [Mass/Vol] 23.0 mg/dL Critically high 7.0-18.0 [facility] Comment on above: Performed By: #### L ACT #### [facility] [address] [address] [address] Ayden Cam Urea nitrogen/Creatinine [Mass ratio] 37.7 mg/mg Normal [facility] Comment on above: Performed By: #### L ACT #### [facility] [address] [place] [address] Dr. Ayden Cam TROPONIN, HIGH SENSITIVITYon 10-04-2022 HSTROP 8.9 pg/mL Normal 4.0-51.3 [facility] Comment on above: Result Comment: CUT- OFF POINTS HAVE BEEN ESTABLISHED BASED ON THE FOURTH UNIVERSAL DEFINITIONS OF MYOCARDIAL INFARCTION. THE UPPER REFERENCE LIMIT (URL) OF TROPONIN, DEFINED THE 99TH PERCENTILE OF cTnI DISTRIBUTION IN A REFERENCE POPULATION, HAS BEEN CONFIRMED THE DECISION THRESHOLD FOR MO DIAGNOSIS. Performed By: #### L ACT #### [facility] [address] [place] [address] Dr. Ayden Cam LIPID PROFILEon 09-19-2022 CHOL-HDL RATIO NORM SEE BELOW Normal [facility] Comment on above: Result Comment: 3.3 - 4.4 LOW RISK 4.4 - 7.1 AVERAGE RISK 7.1 - 11.0 MODERATE RISK >11.0 HIGH RISK Performed By: #### L IPA #### [facility] [address] [place] [address] Dr. Ayden Cam Cholesterol [Mass/Vol] 116 mg/dL Normal <=200 [facility] Comment on above: Performed By: #### L IPA #### [facility] [address] [address] [address] Ayden Cam Cholesterol in HDL [Mass/Vol] 59 mg/dL Normal 40-60 [facility] Comment on above: Performed By: #### L IPA #### [facility] [address] [address] [address] Ayden Cam Cholesterol in LDL [Mass/Vol] 34.0 mg/dL Normal [facility] Comment on above: Performed By: #### L IPA #### [facility] [address] [place] [address] Dr. Ayden Cam Cholesterol.total/Chol esterol in HDL [Mass ratio] 2.0 {ratio} Normal [facility] Comment on above: Performed By: #### L IPA #### [facility] [address] [place] [address] Dr. Ayden Cam HDL NORMAL > or = 60 mg/dl - LO W CARDIOVASCULAR RISK <40 mg/dl - HIGH CARDIOVASCULAR RISK Normal [facility] Comment on above: Performed By: #### L IPA #### [facility] [address] [place] [address] Dr. Ayden Cam LDL CALC NORMAL SEE BELOW Normal [facility] Comment on above: Result Comment: <100 mg/dl OPTIMAL 100 - 129 mg/dl NEAR OR ABOVE OPTIMAL 130 - 159 mg/dl BORDERLINE HIGH 160 - 189 mg/dl HIGH >190 mg/dl VERY HIGH Performed By: #### L IPA #### [facility] [address] [place] [address] Dr. Ayden Cam Triglyceride [Mass/Vol] 115 mg/dL Normal <=150 [facility] Comment on above: Performed By: #### L IPA #### [facility] [address] [place] [address] Dr. Ayden Cam VLDL CALC 23.0 mg/dL Normal [facility] Comment on above: Performed By: #### L IPA #### [facility] [address] [place] [address] Dr. Ayden Cam VITAMIN D 25 OHon 09-19-2022 VIT D 25-OH 89.3 ng/mL Normal [facility] Comment on above: Performed By: #### V ITAD #### [facility] [address] [place] [address] Dr. Ayden Cam VIT D RANGES SEE BELOW Normal [facility] Comment on above: Result Comment: <20 ng/mL Vit D deficient 20 - <30 ng/mL Vit D insufficient 30 - 100 ng/mL Vit D sufficient >100 ng/mL Potential Toxicity Performed By: #### V ITAD #### [facility] [address] [address] [address] 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) Ischemic cardiomyopathy (414.8) (I25.5) Hyperlipidemia (272.4) (E78.5) Essential hypertension, benign (401.1) (I10) Never a smoker Overweight with body mass index (BMI) of 26 to 26.9 in adult (278.02,V85.22) (E66.3,Z68.26) Paroxysmal SVT (supraventricular tachycardia) (427.0) (I47.1) Orders Atherosclerosis of coronary artery of [place] heart without angina pectoris, Essential hypertension, benign, Hyperlipidemia Basic Metabolic Panel; Status:Active - Retrospective Authorization; Requested for:[id number]; Lipid Panel; Status:Active - Retrospective Authorization; Requested for:[id number]; Overweight with body mass index (BMI) of 26 to 26.9 in adult Healthy Weight Tips; Status:Complete - Retrospective Authorization; Done: [id number] Some eating tips that can help you lose weight.; Status:Complete - Retrospective Authorization; Done: [id number] SocHx: Never a smoker Tobacco Use Screening; Status:Complete; Done: [id number] Patient Instructions Please bring all medicines, vitamins, [...] She has a history of prior inferior MO, prior PCI with subsequent three-vessel CABG and [...] CHEST PAIN.CALL 911 IF PAIN PERSISTS. Nyamyc [id number] UNIT/GM External Powderapply topically to affected area [...] no s (more content not included)... Normal MyFit Tobacco Screening.on Adult depression screening assessment No [facility] 250 DO Work Phone: Fall risk assessment a) No falls within the last year [facility] DO Work Phone: Tobacco use status CPHS b) No [facility] DO Work Phone: MRI [...] by Wilder Arango on 08/01/2022 1102 Normal [facility] Tobacco Screening.on 021 Tobacco use status CPHS b) No -[facility] 250 DO Work Phone: Vital [...] 160 cm Celso Garibay DO Work Phone: [facility] 09-05-2024 09:53-0500 Body mass index (BMI) [Ratio] 30.11 kg/m2 Celso Garibay DO Work Phone: [facility] 09-05-2024 09:53-0500 Body weight 77.11 kg Celso Garibay DO Work Phone: [facility] 09-05-2024 09:53-0500 Diastolic blood pressure 80 mm[Hg] Celso Garibay DO Work Phone: [facility] 09-05-2024 09:53-0500 Heart rate 66 /min Celso Garibay DO Work Phone: [facility] 09-05-2024 09:53-0500 Systolic blood pressure 118 mm[Hg] Celso Garibay DO Work Phone: [facility] 08-19-2024 01:03-0500 Diastolic blood pressure 69 mm[Hg] Ashley Grigsby MD Work Phone: [facility] 08-19-2024 01:03-0500 Heart rate 60 /min Ashley Grigsby MD Work Phone: [facility] 08-19-2024 01:03-0500 Respiratory rate 20 /min Ashley Grigsby MD Work Phone: [facility] 08-19-2024 01:03-0500 SaO2% (BldA) [Mass fraction] 96 % Ashley Grigsby MD Work Phone: [facility] 08-19-2024 01:03-0500 Systolic blood pressure 130 mm[Hg] Ashley Grigsby MD Work Phone: [facility] 08-18-2024 20:55-0500 Body height 160.02 cm Ashley Grigsby MD Work Phone: [facility] 08-18-2024 20:55-0500 Body temperature 97.4 [degF] Ashley Grigsby MD Work Phone: [facility] 08-18-2024 20:55-0500 Body weight 78.5 kg Ashley Grigsby MD Work Phone: [facility] 08-13-2024 12:21-0500 Body height 160 cm Celso Garibay DO Work Phone: [facility] 08-13-2024 12:21-0500 Body mass index (BMI) [Ratio] 30.47 kg/m2 Celso Garibay DO Work Phone: [facility] 08-13-2024 12:21-0500 Body weight 78.02 kg Celso Garibay DO Work Phone: [facility] 08-13-2024 12:21-0500 Diastolic blood pressure 94 mm[Hg] Celso Garibay DO Work Phone: [facility] 08-13-2024 12:21-0500 Heart rate 76 /min Celso Garibay DO Work Phone: [facility] 08-13-2024 12:21-0500 Systolic blood pressure 138 mm[Hg] Celso Garibay DO Work Phone: [facility] 08-05-2024 11:08-0500 Blood Pressure Location [place] [facility] 08-05-2024 11:08-0500 Body temperature 98.6 [degF] [place] [facility] 08-05-2024 11:08-0500 Diastolic blood pressure 80 mm[Hg] [place] [facility] 08-05-2024 11:08-0500 Heart rate 68 /min [place] [facility] 08-05-2024 11:08-0500 Respiratory rate 16 /min [place] [facility] 08-05-2024 11:08-0500 Systolic blood pressure 131 mm[Hg] [place] [facility] 04-10-2024 15:08-0400 Blood Pressure Location [place] [facility] 04-10-2024 15:08-0400 Diastolic blood pressure 80 mm[Hg] [place] [facility] 04-10-2024 15:08-0400 Heart rate 75 /min JENNIFER MARTINO [facility] 04-10-2024 15:08-0400 Respiratory rate 16 /min JENNIFER MARTINO [facility] 04-10-2024 15:08-0400 Systolic blood pressure 131 mm[Hg] JENNIFER MARTINO [facility] 02-29-2024 11:15-0400 Body height 160 cm [facility] 02-29-2024 11:15-0400 Body mass index (BMI) [Ratio] 29.58 kg/m2 [facility] 02-29-2024 11:15-0400 Body weight 75.[address] 01-17-2024 16:03-0400 Body height 161.3 cm Stephanie Berger MD PhD Work Phone: [facility] 01-17-2024 16:03-0400 Body mass index (BMI) [Ratio] 30.16 kg/m2 Stephanie Berger MD PhD Work Phone: [facility] 01-17-2024 16:03-0400 Body weight 78.47 kg Stephanie Berger MD PhD Work Phone: [facility] 08-14-2023 15:29-0500 Body height 161.3 cm Celso Garibay DO Work Phone: [facility] 08-14-2023 15:29-0500 Body mass index (BMI) [Ratio] 28.07 kg/m2 Celso Garibay DO Work Phone: [facility] 08-14-2023 15:29-0500 Body weight 73.03 kg Celso Garibay DO Work Phone: [facility] 08-14-2023 15:29-0500 Diastolic blood pressure 80 mm[Hg] Celso Garibay DO Work Phone: [facility] 08-14-2023 15:29-0500 Heart rate 56 /min Celso Garibay DO Work Phone: [facility] 08-14-2023 15:29-0500 Systolic blood pressure 138 mm[Hg] Celso Garibay DO Work Phone: [facility] 06-18-2023 15:15-0400 Diastolic blood pressure 78 mm[Hg] Gaby Tello DO Work Phone: [employer] 06-18-2023 15:15-0400 Heart rate 70 /min Gaby Tello DO Work Phone: [employer] 06-18-2023 15:15-0400 Respiratory rate 18 /min Gaby Tello DO Work Phone: [employer] 06-18-2023 15:15-0400 SaO2% (BldA) [Mass fraction] 96 % Gaby Tello DO Work Phone: [employer] 06-18-2023 15:15-0400 Systolic blood pressure 173 mm[Hg] Gaby Tello DO Work Phone: [employer] 06-18-2023 14:36-0400 Body temperature 97 [degF] Gaby Novoag DO Work Phone: [employer] 06-18-2023 13:30-0400 Body height 160 cm Gaby Novoag DO Work Phone: [employer] 06-18-2023 13:30-0400 Body mass index (BMI) [Ratio] 27.03 kg/m2 Gaby Novoag DO Work Phone: [employer] 06-18-2023 13:30-0400 Body weight 69.22 kg Gaby Novoag DO Work Phone: [employer] 11-02-2022 15:02-0500 Diastolic blood pressure 84 mm[Hg] MD Ashley Grigsby Work Phone: [facility] 11-02-2022 15:02-0500 Heart rate 78 /min MD Ashley Grigsby Work Phone: [facility] 11-02-2022 15:02-0500 Respiratory rate 18 /min MD Ashley Grigsby Work Phone: [facility] 11-02-2022 15:02-0500 SaO2% (BldA) [Mass fraction] 100 % MD Ashley Grigsby Work Phone: [facility] 11-02-2022 15:02-0500 Systolic blood pressure 161 mm[Hg] MD Ashley Grigsby Work Phone: [facility] 11-02-2022 13:20-0500 Body height 160.02 cm MD Ashley Grigsby Work Phone: [facility] 11-02-2022 13:20-0500 Body temperature 98.2 [degF] MD Ashley Grigsby Work Phone: [facility] 11-02-2022 13:20-0500 Body weight 60.78 kg MD Ashley Grigsby Work Phone: [facility] 11-01-2022 13:26-0500 Diastolic blood pressure 61 mm[Hg] MD Ashley Grigsby Work Phone: [facility] 11-01-2022 13:26-0500 Heart rate 59 /min MD Ashley Grigsby Work Phone: [facility] 11-01-2022 13:26-0500 Respiratory rate 20 /min MD Ashley Grigsby Work Phone: [facility] 11-01-2022 13:26-0500 SaO2% (BldA) [Mass fraction] 99 % MD Ashley Grigsby Work Phone: [facility] 11-01-2022 13:26-0500 Systolic blood pressure 124 mm[Hg] MD Ashley Grigsby Work Phone: [facility] 11-01-2022 10:53-0500 Body height 160.02 cm MD Ashley Grigsby Work Phone: [facility] 11-01-2022 10:53-0500 Body temperature 97.7 [degF] MD Ashley Grigsby Work Phone: [facility] 11-01-2022 10:53-0500 Body weight 61.68 kg MD Ashley Grigsby Work Phone: [facility] 10-24-2022 15:45-0500 Body height 159.38 cm Imad Asaad Other [facility] Other 10-24-2022 15:45-0500 Body mass index (BMI) [Ratio] 24.28 kg/m2 Imad Asaad Other [facility] Other 10-24-2022 15:45-0500 Body weight 61.69 kg Imad Asaad Other [facility] Other 10-24-2022 15:45-0500 Diastolic blood pressure 94 mm[Hg] Imad Asaad Other [facility] Other 10-24-2022 15:45-0500 Systolic blood pressure 133 mm[Hg] Imad Asaad Other [facility] Other 09-19-2022 00:00-0500 34 1 Ashley M Hoy Work Phone[facility] DO Work Phone: Comment on above: [facility] 08-15-2022 15:23-0500 Body height 160.02 cm Ashley M Hoy Work Phone: [facility] DO Work Phone: 08-15-2022 15:23-0500 Body mass index (BMI) [Ratio] 26.22 kg/m2 Ashley Tyree Hoy Work Phone: [facility] 250 DO Work Phone: 08-15-2022 15:23-0500 Body surface area Derived from formula 1.7 m2 Ashley Tyree Hoy Work Phone: [facility] DO Work Phone: 08-15-2022 15:23-0500 Body weight 67.13 kg Ashley Tyree Hoy Work Phone: [facility] 250 DO Work Phone: 08-15-2022 15:23-0500 Diastolic blood pressure 82 mm[Hg] Ashley Tyree Hoy Work Phone: [facility] DO Work Phone: 08-15-2022 15:23-0500 Heart rate 80 /min Ashley Tyree Hoy Work Phone: [facility] [facility] DO Work Phone: 08-15-2022 15:23-0500 Systolic blood pressure 132 mm[Hg] Ashley Tyree Hoy Work Phone: [facility] DO Work Phone: 06-02-2022 08:12-0400 Blood Pressure Location Santiago CARRILLO [facility] 06-02-2022 08:12-0400 Diastolic blood pressure 86 mm[Hg] Santiago CARRILLO [facility] 06-02-2022 08:12-0400 Heart rate 60 /min Santiago CARRILLO [facility] 06-02-2022 08:12-0400 Respiratory rate 16 /min Santiago CARRILLO [facility] 06-02-2022 08:12-0400 Systolic blood pressure 144 mm[Hg] Santiago CARRILLO [facility] 08-17-2021 09:47-0500 Body height 160.02 cm Ashley M Hoy Work Phone[facility] 250 DO Work Phone: 08-17-2021 09:47-0500 Body mass index (BMI) [Ratio] 25.01 kg/m2 Ashley M Hoy Work Phone: [facility] [facility] DO Work Phone: 08-17-2021 09:47-0500 Body surface area Derived from formula 1.67 m2 Ashley M Hoy Work Phone: [facility] [facility] DO Work Phone: 08-17-2021 09:47-0500 Body weight 64.05 kg Ashley M Hoy Work Phone: [facility] DO Work Phone: 08-17-2021 09:47-0500 Diastolic blood pressure 86 mm[Hg] Ashley M Hoy Work Phone: [facility] DO Work Phone: 08-17-2021 09:47-0500 Heart rate 72 /min Ashley M Hoy Work Phone: [facility] [facility] DO Work Phone: 08-17-2021 09:47-0500 Systolic blood pressure 134 mm[Hg] Ashley M Hoy Work Phone: [facility] DO Work Phone: Encounters Encounter Date Encounter Type Care Provider Facility Start: 06-23-2025 End: 06-23-2025 Ruben Sinha DO Work Phone: [facility] Start: 06-23-2025 End: 06-23-2025 Bamboo flowsheet Bridgett Soo Stanleytito DO Work Phone: [facility] Start: 06-23-2025 End: 06-23-2025 ambulatory Fawad BRIDGETT Soo SINHA Not Available Start: 06-23-2025 End: 06-23-2025 Office outpatient visit 15 minutes JrFawad Sarmiento Soo Stanleytito DO Work Phone: [facility] Comment on above: Tendonitis of wrist, right; Right wrist pain Start: 06-16-2025 End: 06-16-2025 ambulatory BRIDGETT GONZALEZ Not Available Start: 06-02-2025 End: 06-02-2025 Bamboo flowsheet JrFawad Bridgett Soo Stanleytito DO Work Phone: [facility] Start: 06-02-2025 End: 06-02-2025 Bamboo flowsheet Bridgett Soo Stanleytito DO Work Phone: [facility] Start: 06-02-2025 End: 06-02-2025 Office outpatient visit 15 minutes JrFawad Angeltito DO Work Phone: [facility] Comment on above: Chronic pain of righ t wrist Start: 06-02-2025 End: 06-02-2025 ambulatory BRIDGETT GONZALEZ Not Available Start: 05-27-2025 End: 05-27-2025 Patient encounter procedure Rae Louie MD Work Phone: [facility] Comment on above: Numbness (Primary Dx ); Paresthesias; Carpal tunnel syndrome, left Start: 05-27-2025 End: 05-27-2025 ambulatory RAE LOUIE Not Available Start: 05-15-2025 End: 05-15-2025 Bamboo flowsheet Raji RINALDI Work Phone: [facility] Start: 05-15-2025 End: 05-15-2025 Bamboo flowsheet Raji Byrd PA Work Phone: [facility] Start: 05-15-2025 End: 05-15-2025 ambulatory RAJI BYRD Not Available Start: 05-15-2025 End: 05-15-2025 Office outpatient visit 15 minutes Raji Byrd PA Work Phone: [facility] Comment on above: Right wrist pain (Pr imary Dx); Arm weakness; Numbness; Arm pain, right; Ulnar neuropathy of right upper extremity Start: 05-08-2025 End: 05-08-2025 ambulatory [facility] Start: 01-30-2025 End: 01-30-2025 ambulatory [facility] Start: 01-17-2025 End: 01-17-2025 ambulatory [facility] Start: 01-09-2025 End: 01-09-2025 ambulatory [facility] Start: 12-31-2024 End: 12-31-2024 ambulatory [facility] Start: 12-12-2024 End: 12-12-2024 ambulatory [facility] Start: 11-26-2024 End: 11-26-2024 Bamboo flowsheet Raji RINALDI Work Phone: [facility] Start: 11-26-2024 End: 11-26-2024 Bamboo flowsheet Raji Byrd PA Work Phone: [facility] Start: 11-26-2024 End: 11-26-2024 Office outpatient visit 15 minutes Raji RINALDI Work Phone: [facility] Comment on above: Acute pain of right wrist (Primary Dx); Tendonitis of wrist, right Start: 11-26-2024 End: 11-26-2024 ambulatory RAJI BYRD Not Available Start: 10-11-2024 End: 10-11-2024 ambulatory RADHA Vann FIONA [facility] Start: 09-05-2024 End: 09-05-2024 ambulatory [facility] Start: 09-05-2024 End: 09-05-2024 Transitional care manage srvc 14 day discharge Celso Garibay DO Work Phone: [facility] Comment on above: Atherosclerosis of c oronary artery bypass graft of [place] heart without angina pectoris; S/P PTCA (percutaneous transluminal coronary angioplasty); History of coronary artery bypass graft; Ischemic cardiomyopathy; Essential hypertension; Mixed hyperlipidemia; BMI 30.0-30.9,adult; Statin intolerance Start: 08-20-2024 End: 08-22-2024 Evaluation and management of inpatient Donis Arroyo Facility:[facility] Start: 08-18-2024 Evaluation and management of inpatient Ashley Grigsby MD Work Phone: [facility] Work Phone: Start: 08-18-2024 observation encounter Ashley Grigsby MD Work Phone: [facility] Work Phone: Start: 08-13-2024 End: 08-13-2024 ambulatory [facility] Start: 08-13-2024 End: 08-13-2024 Office outpatient visit 25 minutes Celso Cintrondon DO Work Phone: [facility] Comment on above: Atherosclerosis of c oronary artery of [place] heart without angina pectoris, unspecified vessel or lesion type; History of coronary artery bypass graft; Essential hypertension, benign; Hyperlipidemia, unspecified hyperlipidemia type; Acute pancreatitis, unspecified complication status, unspecified pancreatitis type ([facility]) Start: 08-05-2024 End: 08-05-2024 ambulatory GENTRY-C JENNIFER MARTINO Facility:[facility] Start: 08-05-2024 End: 08-05-2024 Patient encounter procedure JENNIFER MARTINO [facility] Start: 04-10-2024 End: 04-10-2024 ambulatory GENTRY-Soo MARTINO Facility:[facility] Start: 04-10-2024 End: 04-10-2024 Patient encounter procedure JENNIFER MARTINO [facility] Start: 03-11-2024 End: 03-11-2024 ambulatory PA-C JENNIFER MARTINO Facility:[facility] Start: 03-11-2024 End: 03-11-2024 Patient encounter procedure JENNIFER MARTINO [facility] Start: 03-07-2024 End: 03-07-2024 Evaluation and management of inpatient [facility] Start: 03-06-2024 End: 03-07-2024 Evaluation and management of inpatient [facility] Start: 03-06-2024 End: 03-06-2024 Evaluation and management of inpatient [facility] Start: 02-29-2024 End: 02-29-2024 Evaluation and management of inpatient [facility] Start: 02-29-2024 End: 02-29-[address] [facility] Phone Call Provider 4 [facility] Start: 02-14-2024 End: 02-14-2024 Orders Only Stephanie Berger MD PhD [facility] Comment on above: Xerostomia (Primary Dx) Start: 01-17-2024 End: 01-17-2024 ambulatory STEPHANIE BERGER [facility] Start: 01-17-2024 End: 01-17-2024 Office outpatient visit 15 minutes Stephanie Berger MD PhD Work Phone: [facility] Comment on above: Dry nose (Primary Dx ); Xerostomia; Allergic rhinitis, unspecified seasonality, unspecified trigger Start: 08-14-2023 End: 08-14-2023 Office outpatient visit 15 minutes Celso Garibay DO Work Phone: [facility] Comment on above: Atherosclerosis of c oronary artery of [place] heart without angina pectoris, unspecified vessel or lesion type; History of coronary artery bypass graft; Ischemic cardiomyopathy; Essential hypertension, benign Start: 06-18-2023 End: 06-18-2023 [facility] Start: 06-18-2023 End: 06-18-2023 Subsequent hospital visit by physician Gaby Tello DO Work Phone: [facility] Comment on above: Post-menopausal blee ding; Inclusion cyst Start: 05-24-2023 Rx Renewal Ashley Grigsby Work Phone: [facility] Work Phone: Start: 05-17-2023 Patient encounter procedure Ashley Grigsby Work Phone: [facility] 250 DO Work Phone: Start: 05-15-2023 ambulatory ASHLEY GRIGSBY [facility] Start: 12-12-2022 End: 12-12-2022 ambulatory MD Ashley Grigsby Work Phone: [facility] Work Phone: Start: 12-12-2022 End: 12-12-2022 Patient encounter procedure MD Ashley Grigsby Work Phone: [facility] Work Phone: Start: 11-20-2022 End: 11-20-2022 ambulatory Imad Asaad Other [facility] Other Start: 11-20-2022 Telephone encounter Imad Asaad [facility] Start: 11-10-2022 End: 11-10-2022 Patient encounter procedure MD Ashley Grigsby Work Phone: [facility] [place] Work Phone: Start: 11-02-2022 End: 11-02-2022 Admission to same day surgery center MD Ashley Grigsby Work Phone: [facility] Work Phone: Start: 11-02-2022 End: 11-02-2022 ambulatory MD Ashley Grgisby Work Phone: [facility] Work Phone: Start: 11-01-2022 Telephone encounter Imad Asaad [facility] Start: 11-01-2022 End: 11-01-2022 Admission to same day surgery center MD Ashley Grigsby Work Phone: [facility] Work Phone: Start: 11-01-2022 End: 11-01-2022 ambulatory MD Ashley Grigsby Work Phone: [facility] Work Phone: Start: 10-24-2022 End: 10-24-2022 ambulatory Imad Asaad Other [facility] Other Start: 10-24-2022 [facility] visit new patient Imad Asaad [facility] Start: 10-16-2022 End: 10-17-[address] ASHLEY GRIGSBY Facility:[facility] Start: 10-09-2022 End: 10-10-[address] ASHLEY GRIGSBY Facility:[facility] Start: 10-05-2022 Rx Renewal Ashley Grigsby Work [facility] 250 DO Work Phone: Start: 10-04-2022 End: 10-06-[address] ASHLEY GRIGSBY Facility:[facility] Start: 09-19-2022 End: 09-20-[address] DOCTOR PATEL Facility:[facility] Start: 08-15-2022 Office outpatient vi sit 15 minutes Ashley Grigsby Work Phone[facility] DO Work Phone: Start: 08-15-2022 Patient encounter procedure Ashley Grigsby Work Phone: [facility] [facility] DO Work Phone: Start: 06-02-2022 End: 06-02-2022 Patient encounter procedure Santiago Guzman [facility] Start: 05-31-2022 Rx Renewal Ashley Grigsby Work Phone: [facility] [facility] DO Work Phone: Start: 02-07-2022 End: 02-07-2022 Patient encounter procedure Ashley Grigsby MD Work Phone: [facility] Start: 02-07-2022 End: 02-07-2022 Subsequent hospital visit by physician Ashley Grigsby MD Work Phone: [facility] Comment on above: Women's annual routi ne gynecological examination Start: 11-21-2021 Rx Renewal Ashley Grigsby Work Phone: [facility] [facility] DO Work Phone: Start: 08-17-2021 Office outpatient vi sit 15 minutes Ashley Grigsby Work Phone[facility] DO Work Phone: Start: 08-19-2019 End: [...] 11-02-2032 Screening for malignant neoplasm of colon [facility] Start: 02-07-2027 Screening for malignant neoplasm of cervix [facility] Start: 08-18-2025 End: 08-18-2025 Patient encounter procedure 08/18/2025 11:20 AM EST Office Visit [facility] [address] [facility] [address] [place] [address] Celso Garibay DO [address] [facility] [address] [place] [address] [facility] Start: 08-04-2025 End: 08-04-2025 Patient encounter procedure 08/04/2025 10:45 AM EST Office Visit [facility] [address] [place] [address] Jr. Bridgett Sinha, DO [address] [facility] [address] [place] [address] [facility] Start: 08-03-2025 End: 08-13-2025 Alanine aminotransferase [Enzymatic activity/volume] in Serum or Plasma by With P-5'-P Alanine Aminotransferase Lab Routine Hyperlipidemia, unspecified hyperlipidemia type Expected: 08/03/2025 (Approximate), Expires: 08/13/2025 [facility] Service Area Work Phone: Comment on above: Expected: 08/03/2025 (Approximate), Expi res: 08/13/2025 Start: 08-03-2025 End: 08-13-2025 Aspartate aminotransferase [Enzymatic activity/volume] in Serum or Plasma by With P-5'-P Aspartate Aminotransferase Lab Routine Hyperlipidemia, unspecified hyperlipidemia type Expected: 08/03/2025 (Approximate), Expires: 08/13/2025 [facility] Work Phone: Comment on above: Expected: 08/03/2025 (Approximate), Expi res: 08/13/2025 Start: 08-03-2025 End: 08-13-2025 Lipid 1996 panel - Serum or Plasma Lipid Panel Lab Routine Hyperlipidemia, unspecified hyperlipidemia type Expected: 08/03/2025 (Approximate), Expires: 08/13/2025 [facility] Work Phone: Comment on above: Expected: 08/03/2025 (Approximate), Expi res: 08/13/2025 Start: 07-14-2025 End: 07-14-2025 ambulatory 07/14/2025 5:00 PM EDT Evaluation [facility] [address] [phone] Kayode Francois, PT [address] [facility] [address] [facility] Start: 06-23-2025 End: 06-23-2025 Patient encounter procedure 06/23/2025 11:00 AM EDT Office Visit [facility] [address] [place] [phone] Jr. Bridgett Sinha, [address] [facility] [address] [place] [address] [facility] Start: 06-02-2025 End: 06-02-2026 MR Wrist - right WO contrast MR wrist right wo IV cont rast Imaging Routine Chronic pain of right wrist Expected: 06/02/2025 (Approximate), Expires: 06/02/2026 [facility] Work Phone: Comment on above: Expected: 06/02/2025 (Approximate), Expi res: 06/02/2026 Start: 06-02-2025 End: 06-02-2025 Patient encounter procedure [facility] Comment on above: Arrived Start: 06-01-2025 Influenza [...] 03/17/2025 2:40 PM EDT Off ice Visit [facility] [address] [facility] [address] [place] [address] Celso Garibay DO [address] [facility] 2, [address] [place] [address] [facility] Start: 02-28-2025 Adult BMI Screening Adult BMI Screening [facility] Start: 02-07-2025 Screening for malignant neoplasm of cervix [facility] Start: 01-16-2025 Adult BMI Screening Adult BMI Screening [facility] Start: 01-16-2025 Tobacco Screening Tobacco Screening [facility] Start: 01-15-2025 End: 01-15-2025 Patient encounter procedure 01/15/2025 4:00 PM EDT [facility] [address] [facility] [place] [phone] Stephanie Berger MD PhD [address] [facility] [address] [place] [address] [facility] Start: 11-26-2024 End: 11-26-2024 Patient encounter procedure 11/26/2024 1:00 PM EST Off ice Visit [facility] [address] [place] [phone] Raji Byrd PA [address] [place] [address] [address] [place] [address] Acute pain of right wrist (Primary Dx) [facility] Comment on above: Acute pain of right wrist (Primary Dx) Start: 08-19-2024 Screening for malignant neoplasm of cervix [facility] Start: 08-19-2024 [facility] Start: 08-19-2024 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 Start: 08-13-2024 End: 08-13-2024 Patient encounter procedure 08/13/2024 11:30 AM EST Office Visit [facility] [address] [place] [address] Celso Garibay DO [address], [address] [place] [address] [facility] Start: 2024 RSV High Risk: (Elderly (60+) or Population) (1 - Risk 60-74 years 1-dose series) RSV High Risk: (Elderly (60+) or Population) (1 - Risk 60-74 years 1-dose series) [facility] Start: 06-01-2024 COVID-19 Vaccine ( season) COVID-19 Vaccine ( season) [facility] Start: 06-01-2024 Influenza vaccination Influenza Vaccine [facility] Start: 03-06-2024 End: 03-06-2024 Admission to same day surgery center 03/06/2024 11:30 AM EDT - 03/06/2024 12:45 PM EDT Surgery [facility] [address] [place] [address] Danielle Magallon MD [address] [place] [address] ESOPHAGOGASTRODUODENOSCOPY DIAGNOSTIC [21802 (CPT )] [facility] Comment on above: ESOPHAGOGASTRODUODENOSCOPY DIAGNOSTIC [4 3235 (CPT )] Start: 03-06-2024 End: 03-06-2024 Esophagogastroduodenoscopy transoral diagnostic ESOPHAGOGASTRODUODENOSCOPY DIAGNOSTIC ACUTE RECURRING PANCREATITIS, EPIGASTRIC PAIN 03/06/2024 11:30 AM EDT [facility] Start: 03-06-2024 End: 03-06-2024 Esophagoscopy flexible transoral ultrasound exam ENDOSCOPIC ULTRASOUND UPPER ACUTE RECURRING PANCREATITIS, EPIGASTRIC PAIN 03/06/2024 11:30 AM EDT [facility] Start: 03-06-2024 Subsequent hospital visit by physician 03/06/2024 11:30 AM EDT Hospital Encounter [facility] [address] [facility] [place] [address] Danielle Magallon MD [address] [place] [address] [facility] Start: 02-14-2024 Depression Screen Depression Screen [facility] Start: 02-12-2024 End: 08-14-2024 Alanine aminotransferase [Enzymatic activity/volume] in Serum or Plasma by With P-5'-P Alanine Aminotransferase Lab Routine History of coronary artery bypass graft Ischemic cardiomyopathy Expected: 02/12/2024 (Approximate), Expires: 08/14/2024 [facility] Work Phone: Comment on above: Expected: 02/12/2024 (Approximate), Expi res: 08/14/2024 Start: 02-12-2024 End: 08-14-2024 Aspartate aminotransferase [Enzymatic activity/volume] in Serum or Plasma by With P-5'-P Aspartate Aminotransferase Lab Routine Atherosclerosis of coronary artery of [place] heart without angina pectoris, unspecified vessel or lesion type Ischemic cardiomyopathy Expected: 02/12/2024 (Approximate), Expires: 08/14/2024 [facility] Work Phone: Comment on above: Expected: 02/12/2024 (Approximate), Expi res: 08/14/2024 Start: 02-12-2024 End: 08-14-2024 Lipid 1996 panel - Serum or Plasma Lipid Panel Lab Routine Atherosclerosis of coronary artery of [place] heart without angina pectoris, unspecified vessel or lesion type Expected: 02/12/2024 (Approximate), Expires: 08/14/2024 [facility] Work Phone: Comment on above: Expected: 02/12/2024 (Approximate), Expi res: 08/14/2024 Start: 08-14-2023 FUV, Provider: Celso Garibay, Status: Julio, Time: 3:00 PM FUV, Provider: Celso Garibay, Status: Julio, Time: 3:00 PM -[facility] 250 DO Work Phone: Start: 07-28-2023 Screening for malignant neoplasm of breast Breast cancer screen [facility] Start: 07-24-2023 Screening for malignant neoplasm of breast Mammogram [facility] Start: 07-03-2023 End: 07-03-2023 Patient encounter procedure 07/03/2023 4:45 PM EDT Off ice Visit [facility] [place] [address] Gaby Phillips, DO [address] [place], [place] [id number] post-op BA 05/16 [facility] Comment on above: post-op BA 05/16 Start: 06-18-2023 End: 06-18-2023 Hysteroscopy bx endometrium&/polypc w/wo d&c DILATATION AND CURETTAGE HYSTEROSCOPY Post-menopausal bleeding Inclusion cyst 06/18/2023 2:01 PM EDT [facility] Start: 06-01-2023 COVID-19 Vaccine () COVID-19 Vaccine () [facility] Start: 02-13-2023 End: 02-13-2023 Patient encounter procedure 02/13/2023 Office Visit Obstetrics and Gynecology Gaby Phillips, DO [address] [place] [address] [facility] Start: 12-12-2022 [facility] Start: 11-02-2022 [facility] Start: 11-01-2022 [facility] Start: 08-19-2022 Screening for malignant neoplasm of cervix Pap smear [facility] Start: 08-15-2022 FUV, Provider: Celso Garibay, Status: Pen, Time: 3:00 PM FUV, Provider: Celso Garibay, Status: Pen, Time: 3:00 PM [facility] 250 DO Work Phone: Start: 08-03-2022 Lipid panel Lipids [facility] Start: 09-26-2021 COVID-19 Vaccine (4 - Pfizer series) COVID-19 Vaccine (4 - Pfizer series) [facility] Start: 06-01-2019 Influenza vaccination Flu vaccine (#1) [facility]- [place], [place] Start: 05-09-2018 Pneumococcal Vaccine: Pediatrics (0 to 5 Years) and At-Risk Patients (6 to 64 Years) (2 - PCV) Pneumococcal Vaccine: Pediatrics (0 to 5 Years) and At-Risk Patients (6 to 64 Years) (2 - PCV) [facility] Start: 05-09-2018 Pneumococcal Vaccine: Pediatrics (0 to 5 Years) and At-Risk Patients (6 to 64 Years) (2 of 2 - PCV) Pneumococcal Vaccine: Pediatrics (0 to 5 Years) and At-Risk Patients (6 to 64 Years) (2 of 2 - PCV) [facility] Start: 2014 Breast cancer screen Breast cancer screen [place], [place] Start: 2014 Colon cancer screen colonoscopy Colon cancer screen colonoscopy [place], [place] Start: 2014 Shingles Vaccine (1 of 2) Shingles Vaccine (1 of 2) [facility] Start: 08-26-2009 MMR Vaccines (1 of 1 - Standard series) MMR Vaccines (1 of 1 - Standard series) [facility] Start: 2009 Screening for malignant neoplasm of colon [facility] Start: 1999 Diabetes screen Diabetes screen [facility] Start: 1986 DTaP/Tdap/Td Vaccines (1 - Tdap) DTaP/Tdap/Td Vaccines (1 - Tdap) [facility] Start: 1985 Cervical cancer screen Cervical cancer screen [place], [place] Start: 1985 Screening for malignant neoplasm of cervix [facility] Start: 1983 DTaP,Tdap and Td Vaccines (1 - Tdap) DTaP,Tdap and Td Vaccines (1 - Tdap) [facility] Start: 1983 DTaP/Tdap/Td vaccine (1 - Tdap) DTaP/Tdap/Td vaccine (1 - Tdap) [facility] Start: 1982 Adult BMI Follow Up Plan Adult BMI Follow Up Plan [facility] Start: 1982 Diabetes mellitus screening Diabetes Screening [facility] Start: 1982 Hepatitis C screening [facility] Start: 1979 HIV screen HIV screen [place], [place] Start: 1979 HIV screening HIV screen [facility] Start: 1976 Depression Screen Depression Screen [facility] Start: 1976 Depression Screening Depression Screening [facility] Start: 1975 DTaP/Tdap/Td vaccine (1 - Tdap) DTaP/Tdap/Td vaccine (1 - Tdap) [place] Start: 1974 Lipid panel Lipids [facility] Start: 1974 Lipid screen Lipid screen [place], [place] Start: 1964 Hepatitis B vaccine (1 of 3 - 3-dose series) Hepatitis B vaccine (1 of 3 - 3-dose series) [facility] Start: 1964 Hepatitis B Vaccines (1 of 3 - 3-dose series) Hepatitis B Vaccines (1 of 3 - 3-dose series) [facility] Start: 1964 Hepatitis C screen Hepatitis C screen [place], [place] Start: 1964 HIV screening HIV Screening [facility] Start: 1964 Lipid panel Lipid Panel [facility] Start: 1964 Screening for malignant neoplasm of colon [facility] Start: 1964 Yearly Adult Physical Yearly Adult Physical [facility] Actin smooth muscle IgG Ab [Units/volume] in Serum [facility] Alpha 1 antitrypsin [Mass/volume] in Serum or Plasma [facility] Alpha 1 antitrypsin phenotyping [Identifier] in Serum or Plasma by Immunofixation [facility] Ceruloplasmin [Mass/ volume] in Serum or Plasma [facility] End: 08-19-2019 Cytopathology procedure, preparation of smear, genital source PAP SMEAR Lab Routine Well female exam with routine gynecological exam 1 Occurrences starting 08/19/2019 until 08/19/2019 [place] Comment on above: 1 Occurrences starting 08/19/2019 until 08/19/2019 End: 02-07-2022 Cytopathology procedure, preparation of smear, genital source PAP SMEAR Lab Routine Women's annual routine gynecological examination 1 Occurrences starting 02/07/2022 until 02/07/2022 [facility] Work Phone: Comment on above: 1 Occurrences starting 02/07/2022 until 02/07/2022 Glucose measurement estimated from glycated hemoglobin [facility] Hepatitis A virus Ab [Presence] in Serum by Immunoassay [facility] Hepatitis B core ant ibody measurement [facility] Hepatitis B virus khanna rface Ab [Presence] in Serum [facility] Hepatitis B virus khanna rface Ag [Presence] in Serum or Plasma by Immunoassay [facility] Hepatitis C virus Ig G Ab [Presence] in Serum or Plasma by Immunoassay [facility] Homogenous nuclear A b pattern [Titer] in Serum [facility] IgG [Mass/volume] in Serum or Plasma [facility] End: 06-18-2023 INITIATE PACU OXYGEN THERAPY PROTOCOL Initiate PACU Oxygen Therapy Protocol Respiratory Care Routine Continuous until discontinued starting 06/18/2023 [employer] Comment on above: Continuous until discontinued starting 0 06/18/2023 Lipoprotein a [Moles /volume] in Serum or Plasma [facility] Mitochondria M2 IgG Ab [Units/volume] in Serum [facility] Nuclear Ab [Titer] in Serum [facility] Oxygen therapy [Mini mum Data Set] Initiate Oxygen Therapy Protocol Respiratory Care Routine As Needed until discontinued starting 06/18/2023 [employer] Comment on above: As Needed until discontinued starting Oxygen therapy [Mini mum Data Set] Initiate Oxygen Therapy Protocol Respiratory Care Routine As Needed until discontinued starting 06/18/2023 [employer] Comment on above: As Needed until discontinued starting Patient Education Hemorrhoids (DC) [facility] Work Phone: End: 06-18-2023 , urine POCT , urine POCT Point of Care Testing Routine One Time for 1 Occurrences starting 06/18/2023 until 06/18/2023 [employer] Comment on above: One Time for 1 Occurrences starting 06/01 until 06/18/2023 Surgical Pathology Surgical Path ology Lab Routine Post-menopausal bleeding Inclusion cyst Release Upon Ordering for 1 Occurrences starting 06/18/2023 [employer] Comment on above: Release Upon Ordering for 1 Occurrences starting 06/18/2023 [facility] Immunizations Immunization Date Immunization Notes Care Provider Fa cility 06-05-2024 influenza virus vacc ine, unspecified formulation Raji RINALDI Work Phone: [facility] 06-01-2024 influenza, unspecifi ed formulation JENNIFER MARTINO [facility] 06-05-2023 influenza virus vacc ine, unspecified formulation Stephanie Berger MD PhD Work Phone: [facility] 06-16-2022 influenza, injectabl e, quadrivalent, preservative free Ashley M Hoy Work Phone: [facility] [employer] 250 DO Work Phone: 06-16-2022 zoster vaccine recombinant Ashley M Hoy Work [facility]: [facility] Work Phone: 08-01-2021 Pfizer-BioNTech COVI D-19 Vacc 30 MCG/0.3ML Intramuscular Suspension [facility] M Hoy [facility] Work Phone: 06-30-2021 influenza virus vacc ine, unspecified formulation [facility] M Hoy Work Phone: [facility] DO Work Phone: 06-03-2021 Influenza, injectabl e, Madin Renetta Canine Kidney, preservative free, quadrivalent Ashley M Hoy Work Phone: [facility] 250 DO Work Phone: 01-29-2021 Pfizer-BioNTech COVI D-19 Vacc 30 MCG/0.3ML Intramuscular Suspension Ashley M Hoy Work Phone: [facility] DO Work Phone: 01-08-2021 Pfizer-BioNTech COVI D-19 Vacc 30 MCG/0.3ML Intramuscular Suspension Ashley M Hoy Work Phone: [facility] 2020 influenza, injectabl e, quadrivalent, preservative free Ashley M Hoy Work Phone: [facility] DO Work Phone: 07-23-2018 influenza, injectabl e, quadrivalent, preservative free Ashley M Hoy Work Phone: [facility] 250 DO Work Phone: 07-26-2017 Influenza, injectabl e, Madin Renetta Canine Kidney, preservative free, quadrivalent Ashley M Hoy Work Phone: [facility] DO Work Phone: 05-09-2017 pneumococcal polysaccharide vaccine, 23 valent Ashley M Hoy Work Phone: [facility] 250 DO Work Phone: 07-03-2015 influenza, seasonal, injectable, preservative free Ashley M Hoy Work Phone: [facility] DO Work Phone: 06-15-2014 influenza, seasonal, injectable Ashley M Hoy Work Phone: [facility] [employer] 250 DO Work Phone: 07-29-2009 novel influenza-H1N1 -09, preservative-free, injectable Ashley M Hoy Work Phone: [facility] [employer] 250 DO Work Phone: Payers Date Payer Category Payer Self-pay [id number] [phone] [id number] 2022 [facility] [id number] 2022 [facility] [id number] 2022 Unknown 2019 Unknown [employer] [place] xxxxxxxxxxxxxxx 2019-Present [address] [place] [address] xxxxxxxxxxxxxxx [id number] 1964 Unknown [id number] 2.16.840.1.353644.3.579.2.5 93 1964 Unknown [id number] 2.16.840.1.930311.3.579.2.5 93 1964 Unknown [id number] 2.16.840.1.966333.3.579.2.5 93 1964 Unknown [id number] 2.16.840.1.385990.3.579.2.5 93 1964 Unknown [id number] 2.16.840.1.176692.3.579.2.5 93 1964 Unknown [id number] 2.16.840.1.106595.3.579.2.1 73 1964 Unknown [id number] 2.16.840.1.803676.3.579.2.1 75 1964 Unknown [id number] 2.16.840.1.146995.3.579.2.1 286 1964 Unknown [id number] 2.16.840.1.173328.3.579.2.1 286 1964 Unknown [id number] 2.16.840.1.464289.3.579.2.1 286 1964 Unknown [id number] 2.16.840.1.547585.3.579.2.1 286 1964 Unknown [id number] 2.16.840.1.400706.3.579.2.1 286 1964 Unknown [id number] 2.16.840.1.975160.3.579.2.1 286 1964 Unknown [id number] 2.16.840.1.222394.3.579.2.1 286 1964 Unknown [id number] 2.16.840.1.661471.3.579.2.7 27 1964 Unknown [id number] 2.16.840.1.276469.3.579.2.7 27 1964 Unknown [id number] 2.16.840.1.741922.3.579.2.7 27 1964 Unknown [id number] 2.16.840.1.644840.3.579.2.1 244 1964 Unknown [id number] 2.16.840.1.547101.3.579.2.1 244 1964 Unknown [id number] 2.16.840.1.937318.3.579.2.1 286 1964 Unknown [id number] 2.16.840.1.616537.3.579.2.1 286 1964 Unknown [id number] 2.16.840.1.893838.3.579.2.1 259 1964 Unknown [id number] 2.16.840.1.456836.3.579.2.1 259 1964 Unknown [id number] 2.16.840.1.580103.3.579.2.1 259 1964 Unknown [id number] 2.16.840.1.339263.3.579.2.1 259 1964 Unknown [id number] 2.16.840.1.431147.3.579.2.1 259 1964 Unknown [id number] 2.16.840.1.789947.3.579.2.1 259 1964 Unknown [id number] 2.16.840.1.676195.3.579.2.1 259 1964 Unknown [id number] 2.16.840.1.938518.3.579.2.1 259 1959 Unknown [id number] 1959 Unknown [id number] Unknown [id number] 2.16.840.1.897648.3.579.2.5 31 Social History Date Type Detail Facility Start: 08-19-2019 End: 09-13-2023 Tobacco smoking status NHIS Never smoker [place], [place] Start: 08-19-2019 End: 06-23-2025 Alcohol intake Ex-drinker (finding) [facility] Start: 1965 Sex Assigned At Not on file M [place] Start: 06-18-2023 End: 06-23-2025 No alcohol use No alcohol use [facility] 250 DO Work Phone: Start: 08-19-2019 End: 09-13-2023 Tobacco use and exposure Smokeless tobacco non-user [facility] Work Phone: Start: 06-18-2023 End: 06-23-2025 Sex Assigned At Female [facility] Start: 1965 Sex Assigned At Female [facility] Patient Health Questionnaire 9 item (PHQ-9) total score [Reported] 0 [facility] Start: 08-14-2023 End: 09-05-2024 Alcohol intake Lifetime non-drinker (finding) [facility] Work Phone: Start: 08-04-2023 End: 09-05-2024 Exposure to SARS-CoV-2 (event) Not sure [facility] Start: 08-19-2024 Sex Female (finding) [facility] Start: 01-17-2024 End: 02-29-2024 Alcoholic beverage intake Current non-drinker of alcohol (finding) [facility] Start: 09-12-2023 Gender identity Identifies as female gender (finding) [facility] NEGATED: Highlighted row Denies Caffeine use Denies Caffeine use -[facility] 250 DO Work Phone: Medical Equipment Procedure [...] Tissue Alloderm Nonmesh 2x4cm - Sna - [id number] Start: 09-06-2017 Lens Iol Ultrase rt 17.0d - [id number] - [id number] Start: 11-14-2018 Sinus Implant Propel Mini - Sna - [id number] Start: 01-03-2018 Sinus Implant Propel - Sna - [id number] Start: 01-03-2018 Acrysofiq Restor [id number] Start: 11-05-2018 Goals Date Patient Goal Desired Activity /State Functional Status Date Assessment Result Facility 08-05-2024 Functional Status N/A [facility] 04-10-2024 Functional Status N/A [facility] 06-02-2022 Functional Status N/A [facility] Clinical Notes 06-02-2022 to 06-23-2025 Jr. Bridgett [...] IV contrast MRI RT wrist w/o at [facility]. Orbits if needed. Please contact patient [...] Roy, [address] , Sex: 1965, Male [place] [id number] Height: 160 cm Ref Phys: Byrd fax [...] Doub=doublet; Fasc=fasciculation; FFE=full for effort; Fib=fibrillation; Myokym=myokymia; [place]=myotonic potential; N,0=normal; NR=no response; Polyph=polyphasia; Pos=positive [sharp] [...] or mononeuritis multiplex. Rae Louie M.D. Diplomate, [place] [employer] Psychiat[employer] and Neurology (neurology, epilepsy, sleep medicine) Diplomate, [place] Board of Clinical Neurophysiology Diplomate, [place] Board of Preventive Medicine (clinical informatics) . [...] dosage depending on her snack, verifies understanding. [facility] 05-15-2025 History of Present illness Narrative Images [...] her hand tightly in a fist. Symmetric rack cleaner strength noted. She has had prior carpal [...] requiring urgent evaluation. Visit was preformed using [employer] speech recognition. documented in this encounter [...] Rivera in the clinic and Dr. Watson. [facility] 05-08-2025 Note Attestation signed by Chauncey Kimble MD at 05/08/2025 4:15 PM I personally saw the patient with the resident/fellow on the same day of service. I discussed the findings and therapeutic plan with the resident/fellow and with the patient. I agree with the documentation. [facility] Gastroenterology Follow-Up Patient Visit CHIEF COMPLAINT No [...] B12/Folate/Iron studies: Lab Results Component Value Date [id number] 1,862 (H) 02/27/2024 FOLATE 39.0 02/27/2024 IRON [...] 2.02 02/27/2024 Pancreatiti (more content not included)... [facility] 01-09-2025 Note Attestation signed by Chauncey Kimble MD at 01/10/2025 8:31 AM I personally saw the patient with the resident/fellow on the same day of service. I discussed the findings and therapeutic plan with the resident/fellow and with the patient. I agree with the documentation. [facility] Gastroenterology New Patient Visit - History & Physical CHIEF COMPLAINT Chief Complaint Patient presents with Follow-up MRI follow up and seen at [facility] and in hospital for 1 day. [...] for which she was [facility] at [facility] and was management symptomatically. Patient reported [...] Plavix, baby aspirin, amlodipine, and a PRN [place] for pain. Of note, she has a [...] which were ordered at the outside facility ([facility]) and remain pending. A HIDA scan may also be pursued for further evaluation. She reports extreme fatigue post-hospitalization, interfering with her work and daily function. She prefers to avoid surgical intervention unless necessary and is open to advanced enteroscopy (e.g., device-assisted ERCP) at tertiary centers ([facility] or [facility]) as a less invasive alternative to laparoscopic-assisted ERCP. Plan includes requesting complete LFTs and pancreatic (more content not included)... [facility] 12-12-2024 Note Attestation signed by Chauncey Kimble MD at 12/12/2024 3:31 PM I personally saw the patient with the resident/fellow on the same day of service. I discussed the findings and therapeutic plan with the resident/fellow and with the patient. I agree with the documentation. [facility] Gastroenterology New Patient Visit - History [...] for which she was admitted at [facility] and was management symptomatically. Patient reported [...] healthy appearing mucosa. This was traversed. The gzfng-rh-erpublb limb was characterized by healthy appearing mucosa. [...] Angina pectoris Atherosclerosis of coronary artery of [place] heart without angina pectoris Cellulitis of right [...] Mother Gretta Hyperlipidemia Father Alexander Hyperlipidemia Brother [place] Heart attack Brother Ray SOCIAL HISTORY: Social History Tobacco Use Smoking status: Never Smokeless tobacco: Never Vaping Use Vaping status: Never Used Substance Use Topics Alcohol use: Never Drug use: Never ALLERGIES: Baclofen; Latex, natural rubber; Penicillins; Sulfa (sulfonamide antibiotics); Rosuvastatin; Sulfamethoxazole-trimethoprim; Fenofibrate; Fenofibrate micronized; Fluvastatin; Levofloxacin; Phenazopyridine; Simvastatin; Trimethoprim; and Tobramycin Current Med (more content not included)... [facility] 11-26-2024 History of Present illness Narrative [...] AND FELT A POP 10/08/24- WENT TO [facility]; SENT TO ER XRAYS XRAY RT WRIST TODAY EPIC 11/26/24 XRAY [facility] RT FOREARM 10/11/24 SPLINT DOING WELL TODAY- [...] xray 10/11/24 (R) Forearm: no acute fracture [facility] Results - Imaging: - X-ray of the [...] 3.5 x 38 mm Ray stent and [place] distal circumflex for in-stent restenosis with 3 x 18 mm Ipava stent. LV function is preserved. 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 Patient is otherwise stable [...] Atherosclerosis of coronary artery bypass graft of [place] heart without angina pectoris 2. S/P PTCA [...] discussion and plan. documented in this encounter [facility] Work Phone: 09-05-2024 Instructions Jasmyne Salinas [...] be sent through Care Everywhere.Heart Healthy Diet (Faroese)documented in this encounter [facility] Work Phone: 08-19-2024 Evaluation note Diagnosis Onset Date Resolution Atypical chest pain acute Novem rocky 2023 11:18pm [facility] Work Phone: 1(809) 826-369311-13-2024 History of Present illness Narrative* Celso Garibay DO - 08/13/2024 11:30 AM EST Subjective Jose Alberto Saleem is a 59 y.o. female Chief Complaint Annual Exam 59-year-old female returns for annual visit, she just got back from [facility] from vacation last evening and is [...] has a history of remote CABG, remote MO, remote PCI's before and after her CABG [...] Assessment/Plan 1. Atherosclerosis of coronary artery of [place] heart without angina pectoris, unspecified vessel or lesion type Follow Up In Cardiology 2. History of coronary artery bypass graft Follow Up In Cardiology 3. Essential hypertension, benign 4. Hyperlipidemia, unspecified hyperlipidemia type 5. Acute pancreatitis, unspecified complication status, unspecified pancreatitis type ([facility]) Scribe Attestation By signing my name [...] exam, discussion and plan. [facility] Work Phone: 1(901) 709-867111-13-2024 Instructions* Patient Instructions* Bettie Ugalde LPN - [...] Provided instructions on exercise. [facility] Work Phone: 1(155) 819-652211-05-2024 Hospital Discharge instructions Patient Education 08/05/2024 12:20:10 Kidney Stones, Mfiw-jg-Rhpz Kidney Stones Kidney stones are rock-like masses [...] Follow these instructions at home: Medicines Take ancn-ocs-vhagcps and prescription medicines only as told by [...] provider. Document Revised: 05/11/2023 Document Reviewed: 05/11/2023 [employer] Patient Education 2023 [employer]. Follow Up Care 06/06/2024 11:10:21 With:JENNIFER MARTINO PA-C, CARLOS Address: When:1 year [facility] 11-05-2024 NotePatient Education Urology Kidney [...] these instructions at home: Medicines ??? Take ihtv-fjn-oscfqvb and prescription medicines only as told by [...] provider. Document Revised: 05/11/2023 Document Reviewed: 05/11/2023 [employer] Patient Education ? [address] [employer] 04-10-2024 Hospital Discharge instructions Patient Education 04/10/2024 16:08:23 Kidney Stones, Szxm-wr-Glke Kidney Stones Kidney stones are rock-like masses [...] Follow these instructions at home: Medicines Take xrbg-ucc-jjjikfe and prescription medicines only as told by [...] provider. Document Revised: 05/22/2022 Document Reviewed: 05/22/2022 [employer] Patient Education 2022 [employer]. Follow Up Care 03/10/2024 08:31:33 With:SALENA REDDY JENNIFER López, URL Address: [address] [place] [address] When:3 months [facility] Adelfo 07-11-2024 NotePatient Education Urology Kidney [...] these instructions at home: Medicines ? Take zmpu-eqb-jktvzwb and prescription medicines only as told by [...] provider. Document Revised: 05/22/2022 Document Reviewed: 05/22/2022 [employer] Patient Education ? [address] [employer] 02-29-2024 Instructions* Pre-Procedure Instructions - Aracely Boyd RN - 02/29/2024 10:00 AM EDT Your surgery/procedure is scheduled at [facility] on 03/06/2024 at [address] [facility] Address: [address] [place] [address] in [address]1 Parking lot located on [facility]. Report to the Entrance B. Check in at the information desk the surgery. The waiting room located on the second floor. If you have any questions prior to surgery, please call Pre-Admission Clinic at [phone] between 7:30 am and 4:30 pm Sunday through Sunday. If you have questions the morning of surgery, please call the Pre-op Department at [phone]. Notify your SURGEON if you develop any [...] [facility], please call [address] [place] [address] ([phone]). Do not use lotions, creams, powders, perfume, [...] RIGHTS AND RESPONSIBILITIES As a patient at [facility], you have the right to: Receive medical care and be informed of who is taking care of you Be treated with dignity and respect Have a family member/sales representative gas service of choice and your physician notified of your admission Receive information and actively participate in decisions about your care and treatment Refuse care, treatment and services Decide who may provide your support and speak for you Access gnosticism and spiritual services Participate in ethical issues [...] of hospital charges and payment methods Patient/patient sales representative gas service responsibilities are to: Provide information about health [...] RIGHTS AND RESPONSIBILITIES As a patient at [facility], you have the right to: Receive medical care and be informed of who is taking care of you Be treated with dignity and respect Have a family member/sales representative gas service of choice and your physician notified of your admission Receive information and actively participate in decisions about your care and treatment Refuse care, treatment and services Decide who may provide your support and speak for you Access gnosticism and spiritual services Participate in ethical issues [...] of hospital charges and payment methods Patient/patient sales representative gas service responsibilities are to: Provide information about health [...] Control department if you have any questions. [facility]05-31-2024 Miscellaneous Notes* Pre-Procedure Instructions - Aracely Boyd RN - 02/29/2024 10:00 AM EDT Your surgery/procedure is scheduled at [facility] on 03/06/2024 at [address] [facility] Address: [address] [place] [address] in Parking lot located on [facility]. Report to the Entrance B. Check in at the information desk the surgery. The waiting room located on the second floor. If you have any questions prior to surgery, please call Pre-Admission Clinic at [phone] between 7:30 am and 4:30 pm Sunday through Sunday. If you have questions the morning of surgery, please call the Pre-op Department at [phone]. Notify your SURGEON if you develop any [...] would like to schedule therapy at a [facility] facility, please call [phone] ([phone]). Do not use lotions, creams, powders, perfume, [...] RIGHTS AND RESPONSIBILITIES As a patient at [facility], you have the right to: Receive medical care and be informed of who is taking care of you Be treated with dignity and respect Have a family member/sales representative gas service of choice and your physician notified of your admission Receive information and actively participate in decisions about your care and treatment Refuse care, treatment and services Decide who may provide your support and speak for you Access gnosticism and spiritual services Participate in ethical issues [...] of hospital charges and payment methods Patient/patient sales representative gas service responsibilities are to: Provide information about health [...] RIGHTS AND RESPONSIBILITIES As a patient at [facility], you have the right to: Receive medical care and be informed of who is taking care of you Be treated with dignity and respect Have a family member/sales representative gas service of choice and your physician notified of your admission Receive information and actively participate in decisions about your care and treatment Refuse care, treatment and services Decide who may provide your support and speak for you Access gnosticism and spiritual services Participate in ethical issues [...] of hospital charges and payment methods Patient/patient sales representative gas service responsibilities are to: Provide information about health [...] you have any questions. [facility] History of Present illness Narrative* Stephanie Berger MD PhD - 01/17/2024 4:00 PM EDT [facility] [address] [place] [phone] SUBJECTIVE: Patient ID (1965): Jose Alberto Saleem [...] Hypertension Kidney stone Kidney stones Myocardial infarction ([facility]) 2014 5 stents Visual impairment Past Surgical History: Procedure Laterality Date APPENDECTOMY BIOPSY SALIVARY GLAND FS N/A 09/06/2017 Performed by Stephanie Berger MD at [facility] CARPAL TUNNEL RELEASE right CHOLECYSTECTOMY CORONARY ARTERY BYPASS GRAFT x4 ENDOSCOPIC FUNCTIONAL SINUS SURGERY Bilateral 01/03/2018 Performed by Stephanie Berger MD at [facility] ENDOSCOPIC SURGERY SINUS Bilateral 01/03/2018 Performed by Stephanie Berger MD at [facility] EXCISION MASS UPPER EXTREMITY Right 11/19/2019 Performed by Stephanie Morse DO at [facility] HERNIA REPAIR LAPAROSCOPIC GASTRIC BYPASS LITHOTRIPSY OVARIAN CYST REMOVAL PHACO KELMAN I IMPLANT INTRAOCULAR LENS Left 11/14/2018 Performed by Nisha Stoll MD at [facility] PHACO KELMAN I IMPLANT INTRAOCULAR LENS Right 11/05/2018 Performed by Nisha Stoll MD at [facility] RELEASE CARPAL TUNNEL Right 01/11/2022 Performed by Stephanie Morse DO at [facility] RELEASE CARPAL TUNNEL [place] CPT 22597 Left 07/19/2022 Performed by Stephanie Morse DO at [facility] RESECTION SUBMUCOSAL Bilateral 09/06/2017 Performed by Stephanie Berger MD at [facility] SEPTOPLASTY SEPTOPLASTY N/A 09/06/2017 Performed by Stephanie Berger MD at [facility] STENT INSERTION LACRIMAL DUCT EYE Right 09/06/2017 Performed by Stephanie Berger MD at [facility] URETERAL STENT PLACEMENT Family History Problem [...] tablets (6.25 mg total) by mouth daily. rfsiosdo-rxqq-CP-calcium &mins (THERAGRAN-M) 9 mg iron-400 mcg tablet [...] day. (Patient not taking:Reported on 01/17/2024) sod dcwyb-lmgpsq-fpmpwo bottle (NEILMED SINUS RINSE COMPLETE) packet with [...] this chart were generated using voice recognition [employer] dictation software. Although every effort was made to ensure the accuracy of this automated oracle database manager, some errors in oracle database manager may have occurred. documented [facility] History of Present illness Narrative* Celso Garibay, [...] has a history of remote CABG, remote MO, remote PCI's before and after her CABG [...] Assessment/Plan 1. Atherosclerosis of coronary artery of [place] heart without angina pectoris, unspecified vessel or lesion type 2. History of coronary artery bypass graft 3. Ischemic cardiomyopathy 4. Essential hypertension, benign documented [facility] encounter[facility] Work Phone: 1(507) 578-207011-14-2023 Instructions* Patient Instructions* Ej Braswell MA - [...] time of your visit. documented in this encounterSt[facility] Work Phone: 1(184) 890-961409-18-2023 Hospital Discharge instructions* Discharge Instructions* Lissa Ocasio [...] call if excessive. Call the office at [phone] ([place]) [phone] ([place]) for an appointment in 2 weeks. [facility] History of Present illness Narrative* Sejal [...] with Dr. Engel. documented in [facility] Evaluation note* Encounter Date Diagnosis Assessment Notes Treatment Notes Treatment Clinical Notes Nov, Elevated liver function tests (ICD-10 - R94.5) [employer] Other [facility]-02[facility] Evaluation note* Encounter Date Diagnosis Assessment Notes Treatment Notes Treatment Clinical Notes Oct, Abdominal pain (ICD-10 - R10.9) Oct, Common bile duct dilatation (ICD-10 - K83.8) Oct, Elevated liver enzymes (ICD-10 - R74.8) Oct, Constipation (ICD-10 - K59.00) Colonoscopy Start Miralax daily after colonoscopy. Titration dosing discussed with patient. Oct, Colon cancer screening (ICD-10 - Z12.11) [employer] Other 01-04-2023 NotePROGRESS NOTE NOTE DATE: 10/04/2022 CHIEF COMPLAINT: Abdominal pain. HISTORY OF PRESENT ILLNESS: The patient is a 57-year-old female with a history of dyslipidemia and gastric bypass surgery, who has been having increasing abdominal pain and flank pain. She was seen yesterday at the [place] [facility] for epigastric and upper abdominal [...] Prophylaxis: Lovenox. DISPOSITION: Home when medically stable.[facility] [id number] Hospital Discharge instructions Patient Education 06/02/2022 08:51:52 Kidney Stones, Tscm-ev-Xxaf Kidney Stones Kidney stones are rock-like masses [...] Follow these instructions at home: Medicines Take sitt-lva-lshcnab and prescription medicines only as told by [...] Document Reviewed: 02/03/2020 Elsevier Patient Education 2020 [employer] Follow Up Care 05/27/2021 09:10:08 With:LORENA STRAUSS, Santiago Guzman, URL Address: [address] [place] [address]- When: Unknown [facility] evaluation + Plan note Future Appointments Appointment Date:06/01/2023 08:00:00 AM Scheduled Provider:Santiago CARRILLO MD Location:[facility] Appointment Type:URO Office Visit [facility] evaluation + Plan note Future Appointments Appointment Date:04/10/2024 03:00:00 PM Scheduled Provider:JENNIFER MARTINO PA-C Location:[facility] Appointment Type:URO Office Visit [facility] evaluation + Plan note Future Scheduled Tests Radiology* XR Abdomen 1 View 08/05/25 [facility] evaluation note* Diagnosis Women's annual routine gynecological examination documented in this encounter [facility] Work Phone: evalkygsei noteNo assessment information available [facility] Work Phone: Evaluation noteNo InformationNort [employer] Other Evaluation note* Diagnosis Post-menopausal bleeding Postmenopausal bleeding Inclusion cyst Sebaceous cyst documented in this encounter [facility] BoomBangEvaluation note* Diagnosis Atherosclerosis of coronary artery of [place] heart without angina pectoris, unspecified vessel or lesion type 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 Ischemic cardiomyopathy Other specified forms of chronic ischemic heart disease Essential hypertension, benign documented in this encounter [facility] Work Phone: Evaluation note* Diagnosis Atherosclerosis of coronary artery of [place] heart without angina pectoris, unspecified vessel or lesion type 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 Essential hypertension, benign Hyperlipidemia, unspecified hyperlipidemia type Acute pancreatitis, unspecified complication status, unspecified pancreatitis type ([facility]) documented in this encounter [facility] Work Phone: Evaluation note* Diagnosis Atherosclerosis of coronary artery bypass graft of [place] heart without angina pectoris S/P PTCA (percutaneous transluminal coronary angioplasty) Postsurgical percutaneous transluminal coronary angioplasty status 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 Ischemic cardiomyopathy Other specified forms of chronic ischemic heart disease Essential hypertension Unspecified essential hypertension Mixed hyperlipidemia BMI 30.0-30.9,adult Statin intolerance documented [facility] this [facility] Work Phone: Evaluation note* Diagnosis Dry nose- Primary Other diseases of nasal cavity and sinuses Xerostomia Disturbance of salivary secretion Allergic rhinitis, unspecified seasonality, unspecified trigger documented [facility] this encounter [facility] Diagnosis Xerostomia- Primary Disturbance of salivary secretion documented in this encounter [facility]* Diagnosis Acute pain of right wrist- Primary Tendonitis of wrist, right documented in this encounter [facility] HealthcareEvaluation note* Diagnosis Right wrist pain- Primary Pain in joint, forearm Arm weakness Other musculoskeletal symptoms referable to limbs Numbness Disturbance of skin sensation Arm pain, right Pain in soft tissues of limb Ulnar neuropathy of right upper extremity documented in this encounter [facility] HealthcareEvaluation note* Diagnosis Numbness- Primary Disturbance of [...] HealthcareHistory and physical note Author Evert Bruno [facility] November 01, 2022 12:40pm Note Date/Time November 01, 2022 1 2:40pm [facility] [address] [place] [address] Gastroenterology H&P Signed Patient: Jose Alberto Saleem MR#: [id number] : 1965 Acct:[id number] Age/Sex: 57 / F Adm Date: 3 Loc: Room: Type: [facility] Attending Dr: Evert Bruno MD Copies [...] signed by Evert Bruno MD> 11/01/22 1240 [facility] Work Phone: History and physical note Author Evert Bruno [facility] November 02, 2022 2:14pm Note Date/Time November 02, 2022 2 :14pm [facility] [address] [place] [address] Gastroenterology H&P Signed Patient: Jose Alberto Saleem MR#: [id number] : 1965 Acct:[id number] Age/Sex: 57 / F Adm Date: 3 Loc: Room: Type: [facility] Attending Dr: Evert Bruno MD Copies [...] signed by Evert Bruno MD> 11/02/22 1414 [facility] Work Phone: History general Narrative - Reported* Type Description Date Medical History impaired fasting glucose Medical History heart disease, [place] stents, CABG Medical History Hypertension Medical History hyperlipidemia 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 Surgical History CABG remote history Surgical History gastric bypass 2018 Surgical History multiple kidney stones removed Surgical History appendectomy Surgical History cyst on ovarian removed Surgical History bilateral carpe tunnel surgery 2021 Surgical History cholecystectomy Hospitalization History see surgical hx [employer] Other Hospital course Narrative No data available for this section [facility] Hospital Discharge instructions Additional Instructions [...] NOT operate machinery such as power tools, Social Pulsen mowers, snow blowers, sewing machines, etc. for [...] problems. -Follow up with PCP. -Office number [phone]. [facility] Work Phone: Hospital Discharge instructions Additional [...] NOT operate machinery such as power tools, Social Pulsen mowers, snow blowers, sewing machines, etc. for [...] problems. -Follow up with PCP. -Office number [phone]. [facility] Work Phone: Hospital Discharge instructions No data available for this section [facility] InstructionsNot on filedocumented in this encounter [facility] SystemInstructionsNot on filedocumented in this encounter [facility] SystemInstructionsNot on filedocumented in this encounter [facility] SystemProgress note No data available for this section [facility] reason for referral (narrative)* Consultation (Routine) - Authorized Specialty Diagnoses / Procedures Referred By Contac t Referred To Contact Cardiology Diagnoses Atherosclerosis of coronary artery of [place] heart without angina pectoris, unspecified vessel or lesion type History of coronary artery bypass graft Procedures Follow Up In Cardiology Celso Garibay, [address] [facility] [place] [address] Celso Garibay DO [address] [facility] 2, [facility] [address] [place] [address] Referral ID Status Reason Start Date Expiration Date V isits Requested Visits Authorized [id number] Authorized 08/14/2023 08/13/2024 1 1 [facility] Work Phone: Reason for visit Narrative* Other Medical (Routine) - Closed Specialty Diagnoses / Procedures Referred By Manfred flynn Referred To Contact Neurology Diagnoses Arm weakness Numbness Arm pain, right Ulnar neuropathy of right upper extremity Procedures EMG AND NERVE CONDUCTION STUDY Raji Byrd, [address] [place] [address] Phone: tel: fax: Rae Louie MD [address] [address] Phone: tel: fax: Referral ID Status Reason Start Date Expiration Date Visits Re quested Visits Authorized [id number] Closed 05/15/2025 11/11/2025 1 1 [facility] Summary Purpose Family History Unknown Family [...] Documents on File Type Date Recorded Patient Detail Manager Expl anation Advance Directives and Living Will Power of Display Specialist Documents on File Type Date Recorded Patient Detail Manager Expl anation ACP-Advance Directive ACP-Power of Display Specialist Advance Directive Response Recorded Date/ Time [...] She has known history of prior inferior MO, prior stenting, priorthree-vessel CABG, subsequent PCI of [...] adverse reactions to other medications, hypotension. * [place] [employer] is class I * Recommendations, [...] She has a history of prior inferior MO, prior PCI with subsequent three-vessel CABG and [...] She has a history of prior inferior MO, prior PCI with subsequent three-vessel CABG and [...] DATE CREATED AUTHOR AUTHOR'S ORGANIZ ATION 03/26/2018 [facility] ical Center DATE CREATED AUTHOR AUTHOR'S ORGANIZ ATION 08/02/2022 [facility] dical Specialist DATE CREATED AUTHOR AUTHOR'S ORGANIZ ATION 08/17/2022 [facility] DATE CREATED AUTHOR AUTHOR'S ORGANIZ ATION 10/17/2022 [facility] DATE CREATED AUTHOR AUTHOR'S ORGANIZ ATION 06/23/2023 [facility] DATE CREATED AUTHOR AUTHOR'S ORGANIZ ATION 07/16/2023 [facility] DATE CREATED AUTHOR AUTHOR'S ORGANIZ ATION 01/19/2024 [facility] DATE CREATED AUTHOR AUTHOR'S ORGANIZ ATION 03/07/2024 [facility] DATE CREATED AUTHOR AUTHOR'S ORGANIZ ATION 08/06/2024 [facility] DATE CREATED AUTHOR AUTHOR'S ORGANIZ ATION 09/15/2024 [facility] y[facility]ician Group DATE CREATED AUTHOR AUTHOR'S ORGANIZ ATION 10/16/2024 [facility] DATE CREATED AUTHOR AUTHOR'S ORGANIZ ATION 01/22/2025 [facility] DATE CREATED AUTHOR AUTHOR'S ORGANIZ ATION 06/15/2025 [facility] DATE CREATED AUTHOR AUTHOR'S ORGANIZ ATION 06/24/2025 [facility] dical Specialists EPIC Care Teams (unrecognized sec [...] Active Evert Bruno MD Attending Provider Active Supervisor Plasma Relationship Specialty Start Date End Date Ashley Grigsby MD [address] [place] [address] PCP - General Family Medicine 08/19/19 Supervisor Plasma Relationship Specialty Start Date End Date Ashley Grigsby MD [address] [place] [address] PCP - General Family Medicine 08/19/19 Supervisor Plasma Relationship Specialty Start Date End Date Ashley Grigsby MD [address] [place] [address] PCP - General 08/17/21 Supervisor Plasma Relationship Specialty Start Date End Date Ashley Grigsby MD [address] [place] [address] PCP - General 08/17/21 Supervisor Plasma Relationship Specialty Start Date End Date Ashley Grigsby MD [address] [place] [address] PCP - General 08/17/21 Anita Hammonds, services repEvidence Specialist 08/22/24 Supervisor Plasma Relationship Specialty Start Date End Date Ashley Grigsby MD [address] [place] [address] PCP - General 02/22/17 Supervisor Plasma Relationship Specialty Start Date End Date Ashley Grigsby MD [address] [place] [address] PCP - General 02/22/17 Supervisor Plasma Relationship Specialty Start Date End Date Ashley Grigsby MD [address] [place] [address] PCP - General 02/22/17 Supervisor Plasma Relationship Specialty Start Date End Date Ashley Grigsby MD [address] [place] [facility] [place] [address] PCP - General Family Medicine 09/13/23 Supervisor Plasma Relationship Specialty Start Date End Date Ashley Grigsby MD [address] [place] [facility] [place] [address] PCP - General Family Medicine 09/13/23 Supervisor Plasma Relationship Specialty Start Date End Date Ashley Grigsby MD [address] [place] [facility] [place] [address] PCP - General Family Medicine 02/13/25 Supervisor Plasma Relationship Specialty Start Date End Date Ashley Grigsby MD [address] [place] [facility] [place] [address] PCP - General Family Medicine 02/13/25 Supervisor Plasma Relationship Specialty Start Date End Date Ashley Grigsby MD [address] [place] [facility] [place] [address] PCP - General Family Medicine 02/13/25 Supervisor Plasma Relationship Specialty Start Date End Date Ashley Grigsby MD [address] [place] [facility] [place] [address] PCP - General Family Medicine 02/13/25 Supervisor Plasma Relationship Specialty Start Date End Date Ashley Grigsby MD [address] [place] [facility] [address] PCP - General Family Medicine 02/13/25 Supervisor Plasma Relationship Specialty Start Date End Date Ashley Grigsby MD [address] [place] [facility] [place] [address] PCP - General Family Medicine 02/13/25 REASON FOR VISIT (unrecogniz ed section and content) Specialty Diagnoses / Procedures Referred By Manfred flynn Referred To Contact Diagnoses Post-menopausal bleeding Inclusion cyst Post-menopausal bleeding [N95.0] Inclusion cyst [L72.0] Procedures NV HYSTEROSCOPY BX ENDOMETRIUM&/POLYPC W/WO D&C NV DESTRUCTION BENIGN LESIONS UP TO 14 DILATATION AND CURETTAGE HYSTEROSCOPY-REMOVAL OF INCLUSION CYST Gaby Phillips, DO [address] [place] [address] [facility] [address] [place] [address] Referral ID Status Reason Start Date Expiration Date Visits Re quested Visits Authorized [id number] 1 1 Reason Comments Annual Exam 1yr Specialty Diagnoses / Procedures Referred By Manfred flynn Referred To Contact Cardiology Diagnoses Atherosclerosis of coronary artery of [place] heart without angina pectoris, unspecified vessel or lesion type History of coronary artery bypass graft Procedures Follow Up In Cardiology Celso Garibay, DO 703 [facility] 2, [address] [address] Phone: tel: fax: Celso Garibay, DO 703 [facility] 2, [facility] [address] [place] [address] Phone: tel: fax: Referral ID Status Reason Start Date Expiration Date V isits Requested Visits Authorized [id number] Authorized 08/14/2023 08/13/2024 1 1 Reason Comments Follow-up [facility] discharge 08/22 Reason Comments Med Refill Reason [...] BE BASED ON THE PRIMARY CLINICAL RECORDS. [facility] MC10 [facility]. provides no warranty or guarantee of the accuracy or completeness of information in this document.
[2025-07-14 12:28] LABS: Hematocrit 46.9 % (36.0-48.0); Hemoglobin 15.7 g/dL (12.0-16.0); Immature Granulocytes Abs Auto 0.01 10^3/uL (0.00-0.03); Immature Granulocytes Pct Auto 0.2 % (0.0-0.5); Lymphocytes Absolute Auto 1.5 10^3/uL (1.2-3.8); Mean Corpuscular HGB Conc 33.5 g/dL (29.9-35.2); Mean Corpuscular Hemoglobin 29.8 pg (26.7-34.0); Mean Corpuscular Volume 89.2 fL (81.0-99.0); Platelet Count 223 10^3/uL (150-450); Red Blood Count 5.26 10^6/uL (4.20-5.40); White Blood Count 5.4 10^3/uL (4.0-11.0)
[2025-07-14 12:29] LABS: Alanine Aminotransferase 31 U/L (14-59); Albumin Globulin Ratio 1.0; Albumin Level 3.8 g/dL (3.4-5.0); Alkaline Phosphatase 115 U/L (46-116); Amylase 136 U/L (25-115); Anion Gap 11.7; Aspartate Amino Transferase 19 U/L (15-37); Blood Urea Nitrogen 18.0 mg/dL (7.0-18.0); Calcium 9.9 mg/dL (8.5-10.1); Carbon Dioxide 33.2 mmol/L (21.0-32.0); Chloride 101 mmol/L (98-107); Estimated GFR (African America >60 (>=60 mL/min/1.73m^2); Estimated GFR (Non-African Ame >60 (>=60 mL/min/1.73m^2); Globulin 3.7 g/dL; Glucose 106 mg/dL (74-106); Lipase 99.0 U/L (16.0-77.0); Potassium 3.9 mmol/L (3.5-5.1); Sodium 142 mmol/L (136-145); Total Protein 7.5 g/dL (6.4-8.2)
== END 2025-07-14 11:27 | disposition home or self-care (01) ==
PROVIDERS: PCP Family Medicine; Visit Provider Family Medicine
DX: K21.9 Gastro-esophageal reflux disease without esophagitis (principal)
CPT/HCPCS: 36415; 80053; 82150; 83690; 85025; 85652; 86140

== ENCOUNTER 2025-07-16 08:00 | Outpatient (OUT) | payer BC, SELFPAY ==
--- OUTSIDE RECORDS SUMMARY | 2024-09-10 09:15 | XMS_ITS | Continuity of Care Document ---
Author Organization [employer] [facility] Address [address] [place] [address] Phone Care Team Providers Care Load Blocker Name Role Phone Johanna Raygoza CNP Unavailable [...] Providers Copied on Encounter OFFICE/OUTPATI ENT VISIT, [facility] [facility], [address], [place], [place], [address], [place] tel:[phone] [facility] No Information Idalmis Spencer. [address] [facility] [address], [place], [address], [place]. tel:[phone] Referring Provider: Johanna Raygoza, [address] [facility], [place], [address]. tel:[phone] OFFICE/OUTPATI ENT VISIT, [employer] [facility], [address], [place], [place], [address], [place] tel:[phone] [facility] No Information Idalmis Spencer. [address], [place], [place], [address], [place]. tel:[phone] Referring Provider: Johanna Raygoza, [facility] [address], [place], [address]. tel:[phone] OFFICE/OUTPATI ENT VISIT, [employer] [facility], [address] [place] [address] [address], [place], [place], [address], [place] tel:[phone] [facility] No Information Idalmis Spencer. [address] [facility] [address], [place], [place], [address], [place]. tel:[phone] Referring Provider: Johanna Raygoza, [facility] [address] [facility] [address], [place], [address]. tel:[phone] OFFICE/OUTPATI ENT VISIT, [employer] [facility], [address], [place], [place], [address], [place] tel:[phone] [facility] No Information Idalmis Spencer. [address] [facility] [address], [place], [place], [address], [place]. tel:[phone] Referring Provider: Johanna Raygoza, [address] [facility] [address], [place], [address]. tel:[phone] OFFICE/OUTPATI ENT VISIT, [employer] [facility], [address], [place], [place], [address], [place] tel:[phone] [facility] No Information Idalmis Spencer. [address], [place], [place], [address], [place]. tel:[phone] Referring Provider: Johanna Raygoza, [address], [place], [address]. tel:[phone] OFFICE/OUTPATI ENT VISIT, [facility], [address] [place] [address] [address], [place], [place], [address], [place] tel:[phone] [facility] No Information Idalmis Spencer. [address] [place] [address] [address], [place], [place], [address], [place]. tel:[phone] Referring Provider: Johanna Raygoza, [address] [place] [address] [address], [place], [address]. tel:[phone] OFFICE/OUTPATI ENT VISIT, [facility], [address] [place] [address] [address], [place], [place], [address], [place] tel:[phone] [facility] No Information Idalmis Spencer. [address] [place] [address] [address], [place], [place], [address], [place]. tel:[phone] Referring Provider: Johanna Raygoza, [address] [place] [address] [address], [place], [address]. tel:[phone] [employer] [facility], [address] [place] [address] [address], [place], [place], [address], [place] tel:[phone] [facility] No Information Idalmis Spencer. [address] [place] [address] [address], [place], [place], [address], [place]. tel:[phone] Referring Provider: Johanna Raygoza, [address] [place] [address] [address], [place], [address]. tel:[phone] [facility], [address] [place] [address] [address], [place], [place], [address], [place] tel:[phone] [facility] No Information Idalmis Spencer. [address] [place] [address] [address], [place], [place], [address], [place]. tel:[phone] Referring Provider: Johanna Raygoza, [address] [place] [address] [address], [place], [address]. tel:[phone] [facility], [address] [place] [address] [address], [place], [place], [address], [place] tel:[phone] [facility] IP No Information Cady Mccurdy. [address] [place] [address] [address], [place], [place], [address], [place]. tel:[phone] Referring Provider: Kaz De Los Santos, [address] [place] [address] [address], [place], [address]. tel:[phone] [facility], [address] [place] [address] [address], [place], [place], [address], [place] tel:[phone] [facility] IP No Information Idalmis Spencer. [address] [place] [address] [address], [place], [place], [address], [place]. tel:[phone] Referring Provider: Johanna Raygoza, [address] [place] [address] [address], [place], [address]. tel:[phone] OFFICE/OUTPATI ENT VISIT, [facility], [address] [place] [address] [address], [place], [place], [address], [place] tel:[phone] [facility] No Information Cady Mccurdy. [address] [place] [address] [address], [place], [place], [address], [place]. tel:[phone] Referring Provider: Kaz De Los Santos, [address] [place] [address] [address], [place], [address]. tel:[phone] OFFICE/OUTPATI ENT VISIT, [facility], [address] [place] [address] [address], [place], [place], [address], [place] tel:[phone] [facility] No Information Cady Mccurdy. [address] [place] [address] [address], [place], [place], [address], [place]. tel:[phone] Referring Provider: Kaz De Los Santos, [address] [place] [address] [address], [place], [address]. tel:[phone] OFFICE CONSULTATION [facility], [address], [place], [place], [address], [place] tel:[phone] [facility] No Information Cady Mccurdy. [address] [facility] [address], [place], [place], [address], [place]. tel:[phone] Referring Provider: Kaz De Los Santos, [address] [facility] [address], [place], [address]. tel:[phone] Family History Family Member Type Diagnosis Age At Onset No Information Payers Payer name Insurance type Covered republican ID Raad gomez(eva Jones [id number] Social History Type Description Quantity Date Captured [...]
--- OUTSIDE RECORDS SUMMARY | 2025-07-06 13:00 | XMS_ITS ---
Author Organization [facility] [place] Address [address] [place] [address] Care Team Providers Care Waitangi Tribunal Member Name Role Phone Deacon Dejesus Primary Care [...] to dissolve Orally qid 07/06/2025 Active Pancrelipase (Gxe-Yqgb-Eigm) 65[address] UNIT 1 capsule Orally ac and hs [...] application to area of rash 05/15/2025 Active Zoqqnkud-Flcscuyba-Bxutkens 3.5-50227-1.1 1 drop into affected eye Ophthalmic Four times a day; Duration: 7 days 04/16/2025 Active Nitroglycerin 0.[address] 1 tablet unde r the tongue if needed every 5 minutes for nimco... (REFER TO PRESCRIPTION NOTES). Sublingual; Duration: 30 Days Active Nystatin 448542 UNIT/GM 1 application Externally Twice a day; [...] 07/06/2025 Encounters Encounter Location Date Provider Diagnosis [facility] [address] [place] [address] 07/06/2025 Deacon Dejesus Acute pancreatitis K85.90 Assessments [...] Provider Name:Deacon Gordilloestefani, 05:00:00 PM, [address] [place], [address], Progress Notes * Tiarra SALEEM CDOB:[birth year] (60 yo F)Acc No.[id number]:07/06/2025 Progress Note Patient: Tiarra JIM Provider: Bharti Dejesus ([facility])MD :1965 A ge:60 Y S ex:Female Date:07/06/2025 Address:[address] [place], [place] [address] Check In:05:07 PM ESTCheck O ut:05:37 PM [...] Externally BID Thin application to area of kqpwXdmgtsyv-Trfflhsdl-Ugsnlbqv 3.5-30385-1.1 Suspension 1 drop into affected eye Ophthalmic Four times a day Nitroglycerin 0.[address] 1 tablet under the tongue if needed every 5 minutes for nimco... (REFER TO PRESCRIPTION NOTES). Sublingual Nystatin 075481 UNIT/GM Powder 1 application Externally Twice a day Pancrelipase (Kyj-Zjcx-Pyqw) 00446-82434 UNIT Capsule Delayed Release Particles 1 capsule [...] BID Thin application to area of rashTaking Lnrorytw-Duelqbbsy-Aaugamdf 3.5-51551-1.1 Suspension 1 drop into affected eye Ophthalmic Four times a day Taking Nitroglycerin 0.[address] 1 tablet under the tongue if needed every 5 minutes for nimco... (REFER TO PRESCRIPTION NOTES). Sublingual Taking Nystatin 488491 UNIT/GM Powder 1 application Externally Twice a day Taking Pancrelipase (Ubs-Htsh-Ddaw) [address]15-[address] UNIT Capsule Delayed Release Particles 1 capsule [...] Procedure Codes: * Preventive Medicine: Screenings/Counseling: B [place] ACTION PLAN Above Normal BMI Follow-up D ietary management education, guidance, and counseling * * Sign off status: Completed Visit Status: C HK (Check Out) true * Provider: Bharti Dejesus ([facility])MD Date: Generated for Printi ng/Falarryg/eTransmitting on: 11:21 AM EDT History and Physical Notes * [...]
--- OUTSIDE RECORDS SUMMARY | 2025-07-08 12:40 | XMS_ITS ---
Author Organization [facility] in [place] Address [address] [place] [address] Care Team Providers Care Credit Office Manager Name Role Phone Deacon Dejesus Primary Care Provider REASON FOR VISIT off work- Encounters Encounter Location Date Provider Diagnosis [facility] [address] [place] [address] 07/08/2025 Deacon Dejesus Plan Of Treatment Next Appt Details Provider Name:Deacon Clements Duyestefani, 05:00:00 PM, [address] [place], [address], Progress Notes * Tiarra SALEEM CDOB:[birth year] (60 yo F)Acc No.[id number]:07/08/2025 Patient: Megan HERNANDESTiarra :1965 A ge:60 Y S ex:Female Address:[address] [place] [address], [id number] Subjective: * Chief Complaints: * O ff work- * Medical History: * Surgical History: * Hospitalization/Major Diagno stic Procedure: * Medications: Objective: * Vitals: * Physical Examination: Assessment: Plan: * Treatment: * Procedure Codes: * true * Date: Generated for Printi ng/Faxing/eTransmitting on: 11:23 AM EDT
--- OUTSIDE RECORDS SUMMARY | 2025-07-14 06:15 | XMS_ITS ---
Author Organization [facility] in [place] Address [address] [place] [address] Care Team Providers Care Wildlife Ecology Professor Name Role Phone Deacon Dejesus Primary [...] ctive Results Component Value Reference Range Notes AMYLASE Reviewed date:07/14/2025 02:10:19 PM Interpretation: Performing Lab: Notes/Report: [facility] , Amylase 136 25-115 U/L Performing Lab: see note ML - [facility] LB CBC AUTO DIFF Reviewed date:07/14/2025 02:10:19 PM Interpretation: Performing Lab: Notes/Report: [facility] , White Blood Count 5.4 4.0-11.0 10 3/uL Red Blood Count 5.26 4.20-5.40 10 6/uL Hemoglobin 15.7 12.0-16.0 g/dL Hematocrit 46.9 36.0-48.0 % Mean Corpuscular Volume 89.2 81.0-99.0 fL Mean Corpuscular Hemoglobin 29.8 26.7-34.0 pg Mean Corpuscular HGB Conc 33.5 29.9-35.2 g/dL Red Cell Distribution Width 13.2 11.0-15.0 % Platelet Count 223 150-450 10 3/uL Mean Platelet Volume 9.4 9.5-13.5 fL Neutrophils Percent Auto 58.4 43.0-75.0 % Lymphocytes Percent Auto 27.6 20.5-60.0 % Monocytes Percent Auto 9.9 1.7-12.0 % Eosinophils Percent Auto 3.5 0.9-7.0 % Basophils Percent Auto 0.4 0.2-2.0 % Immature Granulocytes Pct Auto 0.2 0.0-0.5 % Neutrophils Absolute Auto 3.1 1.4-6.5 10 3/uL Lymphocytes Absolute Auto 1.5 1.2-3.8 10 3/uL Monocytes Absolute Auto 0.5 0.3-0.8 10 3/uL Eosinophils Absolute Auto 0.2 0.0-0.7 10 3/uL Basophils Absolute Auto 0.0 0.0-0.1 10 3/uL Immature Granulocytes Abs Auto 0.01 0.00-0.03 10 3/uL Performing Lab: see note ML - [facility] LB CRP Reviewed date:07/14/2025 02:10:19 PM Interpretation: Performing Lab: Notes/Report: [facility] , C Reactive Protein <0.50 <=0.50 mg/dL Performing Lab: see note ML - [facility] LB LIPASE Reviewed date:07/14/2025 02:10:19 PM Interpretation: Performing Lab: Notes/Report: [facility] , Lipase 99.0 16.0-77.0 U/L Performing Lab: see note ML - [facility] LB PROF 14(COMP METB) Reviewed date:07/14/2025 02:10:19 PM Interpretation: Performing Lab: Notes/Report: [facility] , Sodium 142 136-145 mmol/L Potassium 3.9 3.5-5.1 mmol/L Chloride 101 98-107 mmol/L Carbon Dioxide 33.2 21.0-32.0 mmol/L Anion Gap 11.7 Glucose 106 74-106 mg/dL Blood Urea Nitrogen 18.0 7.0-18.0 mg/dL Creatinine 0.72 0.55-1.02 mg/dL Estimated GFR ( [place] >60 >=60 mL/mi n/1.73m 2 Estimated GFR (Non- [place] >60 >=60 mL/mi n/1.73m 2 BUN Creatinine Ratio 25.0 Calcium 9.9 8.5-10.1 mg/dL Bilirubin Total 0.3 0.2-1.0 mg/dL Aspartate Amino Transferase 19 15-37 U/L Alanine Aminotransferase 31 14-59 U/L Alkaline Phosphatase 115 46-116 U/L Total Protein 7.5 6.4-8.2 g/dL Albumin Level 3.8 3.4-5.0 g/dL Globulin 3.7 Albumin Globulin Ratio 1.0 Performing Lab: see note ML - [facility] LB REASON FOR VISIT TCM d/c 07/08 abnormal labs Medications Medication SIG (Take, Route, Frequency, Duration) Notes Start Date End Date Status RABEprazole Sodium 20 MG TAKE 1 TABLET T WICE A DAY; Duration: 90 days Active PreserVision AREDS A ctive Pancrelipase (Cpq-Plnp-Rttt) 47453-47008 UNIT 1 capsule Orally ac and hs 09/25/2024 Active traMADol HCl 50 MG 1 tablet as needed Orally 4 times a day; Duration: 7 days 01/24/2024 Active Tamsulosin HCl 0.4 MG 1 capsule Orally B ID; Duration: 90 days Active Ondansetron 4 MG 1 tablet on the tong ue and allow to dissolve Orally qid 07/06/2025 Active Nystatin 739719 UNIT/GM 1 application Externally Twice a day; Duration: 30 days 11/12/2023 Active Nitroglycerin 0.[address] 1 tablet unde r the tongue if needed every 5 minutes for nimco... (REFER TO PRESCRIPTION NOTES). Sublingual; Duration: 30 Days Active Mometasone Furoate 0.1 % 1 application Externally BID; Duration: 30 days Thin application to area of rash 05/15/2025 Active hydroCHLOROthiazide 12.5 MG Oral; Durati on: 90 Days Active Fluticasone Propionate 50 MCG/ACT INSTILL 1 SPRAY IN EACH NOSTIRL TWICE A DAY.; Duration: 90 days Active hydroCHLOROthiazide 25 MG TAKE 1 TABLET BY MOUTH EVERY MORNING; Duration: 30 Active Hyoscyamine Sulfate 0.125 MG 1-2 tabs SL SL every 4 hrs PRN abd pain 07/06/2025 Active Estradiol Active Diclofenac Sodium 3 % 1 application Externally Twice a day; Duration: 30 days 05/15/2025 Active Clopidogrel Bisulfate 75 MG 1 tablet Ora lly Once a day 08/27/2024 Active Citalopram Hydrobromide 40 MG 1 tablet O rally Once a day; Duration: 30 days Active Cevimeline HCl 30 MG 1 capsule Orally qi d; Duration: 90 days 02/12/2024 Active oxyCODONE HCl 5 MG Oral; Duration: 6 Days Active Aspirin Low Dose 81 MG Oral; Duration: 9 0 Days Active Social History Tobacco Use: Social History Observation Description Date Details (start date - stop date) Never Smoker NA - NA Tobacco Use/Smoking Question Answer Notes Patient is a nonsmoker Vital Signs Weight 181.0 lbs 07/14/2025 Height 63 in 07/14/2025 Blood pressure systolic 140 mm Hg 07/14/20 25 Blood pressure diastolic 78 mm Hg 025 BMI 32.06 kg/m2 07/14/2025 Encounters Encounter Location Date Provider Diagnosis [address] [address] 07/14/2025 Deacon Dejesus GERD (gastroesophage al reflux disease) K21.9 and Acute pancreatitis K85.90 Assessments Encounter Date Diagnosis (ICD Code) Assessment Notes Treatment Notes Treatment Clinical Notes Section Notes 07/14/2025 GERD (gastroesophageal reflux disease) (ICD-10 - K21.9) 07/14/2025 Acute pancreatitis (ICD-10 - K85.90) Plan Of Treatment Pending Test Test Name Order Date SED RATE NESSAREN 07/14/2025 Next Appt Details Provider Name:Deacon Dejesus, 05:00:00 PM, [address] [place] [address], [phone], Progress Notes * Tiarra SALEEM CDOB:[birth year] (60 yo F)Acc No.[id number]:07/14/2025 Progress Note Patient: Tiarra JIM Provider: Bharti Dejesus ([facility])MD :1965 A ge:60 Y S ex:Female Date:07/14/2025 Address:[address] [place], [place] [id number] Check In:10:14 AM ESTCheck O ut:11:06 AM EST Subjective: * Chief Complaints: * T CM d/c 07/08 abnormal labs * ROS: E ENT: hearing changes d [...] Hyperlipidemia Modified On:10/13/2024 Status:confirmed E78.5 Hyperlipemia Modified On:01/17/2025W/U Status:confirmed I10 Benign essential HTN Modified On:10/17/2024W/U Status:confirmed R06.83 Snoring Modified On:01/08/2025/U Status:confirmed R53.83 Fatigue Modified On:01/08/2025/U Status:confirmed * Medical History: * Surgical History: [...] EVERY MORNING Hyoscyamine Sulfate 0.125 MG Tablet Sublingual 1-2 tabs SL SL every 4 hrs PRN abd pain Mometasone Furoate 0.1 % Cream 1 application Externally BID Thin application to area of rashNitroglycerin 0.[address] 1 tablet under the tongue if needed every 5 minutes for nimco... (REFER TO PRESCRIPTION NOTES). Sublingual Nystatin 019490 UNIT/GM Powder 1 application Externally Twice a day Ondansetron 4 MG Tablet Disintegrating 1 tablet on the tongue and allow to dissolve Orally qid oxyCODONE HCl 5 MG Tablet Oral Pancrelipase (Tmv-Csoq-Udor) 40761-[address] UNIT Capsule Delayed Release Particles 1 capsule Orally ac and hs PreserVision AREDS RABEprazole Sodium 20 MG Tablet Delayed Release TAKE 1 TABLET TWICE A DAY Tamsulosin HCl 0.4 MG Capsule 1 capsule Orally BID traMADol HCl 50 MG Tablet 1 tablet as needed Orally 4 times a day Taking Aspirin Low Dose(Aspirin) 81 MG Tablet Delayed [...] MORNING Taking Hyoscyamine Sulfate 0.125 MG Tablet Sublingual 1-2 tabs SL SL every 4 hrs PRN abd pain Taking Mometasone Furoate 0.1 % Cream 1 application Externally BID Thin application to area of rashTaking Nitroglycerin 0.[address]ual place 1 tablet under the tongue if needed every 5 minutes for nimco... (REFER TO PRESCRIPTION NOTES). Sublingual Taking Nystatin 295842 UNIT/GM Powder 1 application Externally Twice a day Taking Ondansetron 4 MG Tablet Disintegrating 1 tablet on the tongue and allow to dissolve Orally qid Taking oxyCODONE HCl 5 MG Tablet Oral Taking Pancrelipase (Vic-Ujnx-Rewm) [address] UNIT Capsule Delayed Release Particles 1 capsule Orally ac and hs Taking PreserVision AREDS Taking RABEprazole Sodium 20 MG Tablet Delayed Release TAKE 1 TABLET TWICE A DAY Taking Tamsulosin HCl 0.4 MG Capsule 1 capsule Orally BID Taking traMADol HCl 50 MG Tablet 1 tablet as needed Orally 4 times a day DiscontinuedHyoscyamine Sulfate 0.125 MG Tablet 2 tablet as needed Orally every 4 hrs PRN abd pain Psptlhfu-Xzqvkubrs-Sfxhrdwe 3.5-34548-1.1 Suspension 1 drop into affected eye Ophthalmic Four times a day Medication List reviewed and reconciled with the patientDiscontinued Hyoscyamine Sulfate 0.125 MG Tablet 2 tablet as needed Orally every 4 hrs PRN abd pain Discontinued Yxcntqqg-Rofbuphdq-Npwrvowm 3.5-19915-5.1 Suspension 1 drop into affected eye Ophthalmic Four times a day Medication List reviewed and reconciled with the patient * Allergies: L evaquin: thrush - AllergyPenicillin: rash/lethargic - AllergyCrestor: elevated LFT - AllergyBaclofen: SOB - AllergyLatex: AllergySulfa Antibiotics: hives - Allergyno[Allergies Verified] Objective: * Vitals: W t:181.0lbs, Ht: 63 in, BP:140/78mm Hg, BMI:32.06Index, Ht-cm: 160.02 cm, Wt-k.1 kg. * Examination: P hysical Exam: GENERAL: [...] mood and affect. Assessment: * Assessment: 1. G ERD (gastroesophageal reflux disease) - K21.9 (Primary) 2 . A cute pancreatitis - K85.90 Plan: * Treatment: * Labs: * L ab: PROF 14(COMP METB) (Collection Date & Time - 07/14/2025 11:55 AM) L ab: AMYLASE (Collection Date & Time - 07/14/2025 11:55 AM) L ab: LIPASE (Collection Date & Time - 07/14/2025 11:55 AM) L ab: CBC AUTO DIFF (Collection Date & Time - 07/14/2025 11:55 AM) L ab: CRP (Collection Date & Time - 07/14/2025 11:55 AM) * Procedure Codes: * Preventive Medicine: Screenings/Counseling: B DE ACTION PLAN Above Normal BMI Follow-up D ietary management education, guidance, and counseling * * Sign off status: Completed Visit Status: C HK (Check Out) true * Provider: Bharti Dejesus ([facility])MD Date: Generated for Printi ng/Faxing/eTransmitting on: 11:23 AM EDT History and Physical Notes * [...]
--- OUTSIDE RECORDS SUMMARY | 2025-07-16 11:22 | XMS_ITS | Encounter Summary ---
Author Organization [employer] Address [facility]-[id number] [address] [place] [address] Care Team Providers Care Tile Erector Name Role Phone Ziggy Dejesus MD Primary Care Provider [phone] Encounter Details Date Type Department Care Team (Late st Contact Info) Description 02/08/2024 Telephone [facility]icians Ear, Nose and Throat [address] [place] [address] Devaughn Messer MD PhD [address] [address] RETIRED 04/30/2024 [place] [address] Social History Tobacco Use Types [...] documented as of this encounter Care Teams Tile Erector Relationship Specialty Start Date End Date Ziggy Dejesus MD PCP - General 02/22/17 documented as of this encounter
--- OUTSIDE RECORDS SUMMARY | 2025-07-16 11:22 | XMS_ITS | Encounter Summary ---
Author Organization [facility] Address [address] [place] [address] Phone Care Team Providers Care Central Office Technician Name Role Phone Ziggy Dejesus MD Primary Care Provider [phone] Anita Hammonds RN Unavailable Unavailable Encounter Details Date Type Department Care Team (Late st Contact Info) Description 08/21/2024 Scanned Document [facility] [address] [place] [address] Scanning, Generic Provider Social History [...] Description 08/18/2025 11:20 AM EST Office Visit [facility] 7[address] [facility] [address] [place] [address] Celso Garibay DO 703 [facility] 2, [address] [place] [address] documented as of this encounter Visit Diagnoses Not on filedocumented in this encounter Care Teams Central Office Technician Relationship Specialty Start Date End Date Ziggy Dejesus MD [address] [place] [address] PCP - General 08/17/21 Anita Hammonds, glove examinerRn Pediatric 08/22/24 10/03/24 documented as of this encounter
--- OUTSIDE RECORDS SUMMARY | 2025-07-16 11:22 | XMS_ITS | Encounter Summary ---
Author Organization [employer] Address [facility]-[id number] [address] [place] [address] Care Team Providers Care Hazardous Substances Engineer Name Role Phone Ziggy Dejesus MD Primary Care Provider [phone] Reason for Visit * Reason Comments Med Refill Encounter Details Date Type Department Care Team (Late st Contact Info) Description 01/31/2024 Refill [facility] [address] [place] [address] Antonia Banda, PA-C 0[address] [facility] [address] [place] [address] [employer] Social History Tobacco Use Types Packs/Day [...] documented as of this encounter Care Teams Hazardous Substances Engineer Relationship Specialty Start Date End Date Ziggy Dejesus MD PCP - General 02/22/17 documented as of this encounter
--- OUTSIDE RECORDS SUMMARY | 2025-07-16 11:22 | XMS_ITS | Encounter Summary ---
Author Organization [facility] Address [address] [place] [address] Phone Care Team Providers Care Back Roller Name Role Phone Ziggy Dejesus MD Primary Care Provider [phone] Anita Hammonds RN Unavailable Unavailable Encounter Details Date Type Department Care Team (Late st Contact Info) Description 08/20/2024 Scanned Document [facility] [address] [place] [address] Scanning, Generic Provider Social History [...] Description 08/18/2025 11:20 AM EST Office Visit [facility] 7[address] [facility] [address] [place] [address] Celso Garibay DO 703 [facility] 2, [address] [place] [address] documented as of this encounter Visit Diagnoses Not on filedocumented in this encounter Care Teams Back Roller Relationship Specialty Start Date End Date Ziggy Dejesus MD [address] [place] [address] PCP - General 08/17/21 Anita Hammonds, financial institution branch managerNewspaper Editor Managing 08/22/24 10/03/24 documented as of this encounter
--- OUTSIDE RECORDS SUMMARY | 2025-07-16 11:22 | XMS_ITS | Clinical Summary ---
Author Organization [facility] Address [address] [place] [address] Care Team Providers Care Senior Manufacturing Supervisor Name Role Phone Ziggy Dejesus MD Primary Care Provider [phone] Allergies Active Allergy Reactions Criticality Noted Date [...] Visit [facility] [address] [place] [address] Jr. Torsten Sinha, DO Tendonitis of wrist, right; Right wrist pain 06/23/2025 Bamboo flowsheet [facility] [place] [address] Jr. Torsten Sinha, DO 06/23/2025 Travel 06/16/2025 9:15 AM EDT Ancillary Procedure [facility] [address] [facility] [address] [place] [address] Chronic pain of right wrist 06/16/2025 Travel 06/15/2025 Travel 06/02/2025 10:15 AM EDT Office Visit [facility] [place] [address] Jr. Torsten Sinha, Chronic pain of right wrist 06/02/2025 Bamboo flowsheet [facility] [place] [address] Jr. Torsten Sinha, DO 06/02/2025 Travel 05/27/2025 3:15 PM EDT Procedure Visit [facility] [address] [facility] [address] [place] [address] Corbin Louie MD Numbness (Primary Dx); Paresthesias; Carpal tunnel syndrome, left 05/27/2025 Travel 05/15/2025 11:55 AM EDT Ancillary Procedure [facility] [place] [address] 05/15/2025 11:30 AM EDT [facility] [place] [address] Arik Byrd PA Right wrist pain (Primary Dx); Arm weakness; Numbness; Arm pain, right; Ulnar neuropathy of right upper extremity 05/15/2025 Bamboo flowsheet [facility] [address] [place] [address] Arik Byrd PA 05/15/2025 Travel [...] Description 08/04/2025 10:45 AM EST Office Visit [place] [address] [place] [address] Jr. Torsten Sinha, [address] [facility] [address] [place] [address] Health Maintenance Due Date Last Done Comments [...] Last 3 Months Insurance BS Care Teams Senior Manufacturing Supervisor Relationship Specialty Start Date End Date Ziggy Dejesus MD [address] [place] [address] PCP - General Family Medicine 02/13/25
--- OUTSIDE RECORDS SUMMARY | 2025-07-16 11:22 | XMS_ITS | Encounter Summary ---
Author Organization [facility] Address [address] [place] [address] Phone Care Team Providers Care Embedded Firmware Developer Name Role Phone Ziggy Deejsus MD Primary Care Provider [phone] Anita Hammonds RN Unavailable Unavailable Encounter Details Date Type Department Care Team (Late st Contact Info) Description 08/18/2024 Scanned Document [facility] [address] [place] [address] Scanning, Generic Provider Social History [...] Office Visit [facility] 7[address] [facility] [address] [place] [address] Celso Garibay DO 7[address] [facility] 2, [address] [place] [address] documented as of this encounter Procedures Procedure Name Priority Date/Time Associated Diagnosis Comments OUTSIDE IMAGING SCAN 08/18/2024 documented in this encounter Results * OUTSIDE IMAGING SCAN (08/18/2024) Anatomical Region Laterality Modality Other Narrative 08/18/2024 Ordered by an unspecified provider. us Generic Provider Scanning OUTSIDE SCAN Final Result documented in this encounter Visit Diagnoses Not on filedocumented in this encounter Care Teams Embedded Firmware Developer Relationship Specialty Start Date End Date Ziggy Dejesus MD [address] [place] [address] PCP - General 08/17/21 Anita Hammonds, wood heel flap rubberDirector Hr Communications 08/22/24 10/03/24 documented as of this encounter
--- OUTSIDE RECORDS SUMMARY | 2025-07-16 11:23 | XMS_ITS | Encounter Summary ---
Author Organization [employer] Address [facility]-[id number] [address] [place] [address] Care Team Providers Care Garage Supervisor Name Role Phone Ziggy Dejesus MD Primary Care Provider [phone] Encounter Details Date Type Department Care Team (Late st Contact Info) Description 06/28/2022 Telephone [facility] Physicians Ear, Nose and Throat [address] [place] [address] Jennifer Peng RMA Social History Tobacco Use [...] documented as of this encounter Care Teams Garage Supervisor Relationship Specialty Start Date End Date Ziggy Dejesus MD PCP - General 02/22/17 documented as of this encounter
--- OUTSIDE RECORDS SUMMARY | 2025-07-16 11:23 | XMS_ITS | Clinical Summary ---
Author Organization [facility] Address [address] [place] [address] Phone Care Team Providers Care Medical Billing Coder Name Role Phone Ziggy Dejesus MD Primary Care Provider [phone] Allergies Active Allergy Reactions Criticality Noted Date [...] SL tabletIndications :Atherosclerosis of coronary artery of [place] heart without angina pectoris, unspecified vessel or [...] :Atherosclerosis of coronary artery bypass graft of [place] heart without angina pectoris,S/P PTCA (percutaneous transluminal [...] :Atherosclerosis of coronary artery bypass graft of [place] heart without angina pectoris TAKE 1 TABLET BY MOUTH DAILY 90 tablet 3 5 Active Active Problems Problem Noted Date Diagnosed Date Statin intolerance 09/05/2024 BMI 30.0-30.9,adult 09/05/2024 S/P PTCA (percutaneous transluminal coronary ang ioplasty) 09/05/2024 Pancreatitis 08/13/2024 Atherosclerosis of coronary artery of [place] heart without angina pectoris 08/09/2023 Essential hypertension 08/09/2023 History of coronary artery bypass graft 08/09/20 23 Hyperlipidemia 08/09/2023 Ischemic cardiomyopathy 08/09/2023 Paroxysmal SVT (supraventricular tachycardia) Ventricular septal defect 08/09/2023 Family History Medical History Relation Name [...] Description 08/18/2025 11:20 AM EST Office Visit [facility] [address] [phone] Celso Garibay, 703 [facility] 2, [address] [address] Health Maintenance Due Date Last Done Comments [...] 2025 , 06/05/2023, 06/16/2022, Additional history exists COVID-19 Vaccine ( season) 2025 08/01/2021, 01/29/2021, 01/08/2021 Colonoscopy 11/02/2032 11/02/2022, 11/01/2022 Colorectal Cancer Screening [...] patient's age to complete this topic Insurance [facility] Care Teams Medical Billing Coder Relationship Specialty Start Date End Date Ziggy Dejesus MD [address] [place] [address] PCP - General 08/17/21
--- OUTSIDE RECORDS SUMMARY | 2025-07-16 11:23 | XMS_ITS | Encounter Summary ---
Author Organization [facility] Address [id number] [address] [place] [address] Care Team Providers Care Loading Dock Helper Name Role Phone Ziggy Dejesus MD Primary Care Provider [phone] Reason for Visit * Reason Onset Date Comments Med Refill 09/26/2017 Encounter Details Date Type Department Care Team (Late st Contact Info) Description 09/26/2017 Refill [facility] [address] [place] [address] [place] [address] Alisia Bazzi RMA Social History Tobacco Use [...] on filedocumented in this encounter Care Teams Loading Dock Helper Relationship Specialty Start Date End Date Ziggy Dejesus MD PCP - General 02/22/17 documented as of this encounter
--- OUTSIDE RECORDS SUMMARY | 2025-07-16 11:23 | XMS_ITS | Clinical Summary ---
Author Organization [facility] Address [place]-[id number] [address] [place] [address] Care Team Providers Care Structural Steel Worker Name Role Phone Ziggy Dejesus MD Primary Care Provider [phone] Allergies Active Allergy Reactions Criticality Noted Date [...] (20 mg total) before bedtime. Active sod abmys-xbqble-vkner z bottle (NEILMED SINUS RINSE COMPLETE) packet [...] (three) times a day with meals. Active vpchclhl-hfrs-NM-c alcium &mins (THERAGRAN-M) 9 mg iron-400 mcg [...] 16 g 11 02/14/20 24 Active vit C,J-Ay-gycru-lutei n-zeaxan (PRESERVISION AREDS-2) 250-90-40-1 mg capsule Take [...] Completed 08/21/2022, Medical Devices Implanted Type Area Millinery Teacher Device Identifier Shelf Expiration Date Model / Serial / Lot Tissue Alloderm Nonmesh 2x4cm - Sna - [id number] Implanted:Qty : 1 on 09/06/2017 by Devaughn Messer MD PhD at [facility] Graft Nose [employer] 03/20/2018 [id number] / NA / [id number] Lens Iol Ultrasert 17.0d - [id number] - [id number] Implanted:Qty : 1 on 11/14/2018 by Nisha Stoll MD at [facility] Lens Left: Eye [employer] 09/30/2020 [id number] 17.0 / [id number] / NA Sinus Implant Propel Mini - Sna - [id number] Implanted:Qty : 1 on 01/03/2018 by Devaughn Messer MD PhD at [facility] Other Implant Nose [employer] 03/06/2018 [id number] / NA / [id number] Sinus Implant [place] - Sna - [id number] Implanted:Qty : 2 on 01/03/2018 by Devaughn Messer MD PhD at [facility] Stent Bilatera l: Nose [employer] 02/15/2018 [id number] / NA / [id number] Acrysofiq Restor Implanted:Qty : 1 on 11/05/2018 by Nisha Stoll MD at [facility] Right: Eye [employer] 11/29/2019 [id number] / [id number] / NA Insurance [facility] Care Teams Structural Steel Worker Relationship Specialty Start Date End Date Ziggy Dejesus MD PCP - General 02/22/17
--- OUTSIDE RECORDS SUMMARY | 2025-07-16 11:23 | XMS_ITS | Encounter Summary ---
Author Organization [facility] Address [address] [place] [address] Care Team Providers Care Wire Bender Hand Name Role Phone Ziggy Dejesus MD Primary Care Provider [phone] Reason for Visit * Reason Onset Date Comments Med Refill 05/14/2025 Encounter Details Date Type Department Care Team (Late st Contact Info) Description 05/14/2025 Refill [facility] at [address] [address] Nicole Locke MA Social History [...] on filedocumented in this encounter Care Teams Wire Bender Hand Relationship Specialty Start Date End Date Ziggy Dejesus MD [address] [facility] [place] [address] PCP - General 02/18/24 documented as of this encounter
--- OUTSIDE RECORDS SUMMARY | 2025-07-16 11:23 | XMS_ITS | Encounter Summary ---
Author Organization [employer] Address [id number] [address] [place] [address] Care Team Providers Care Die Grinder Name Role Phone Ziggy Dejesus MD Primary Care Provider [phone] Encounter Details Date Type Department Care Team (Late st Contact Info) Description 08/17/2022 Orders Only [facility] [address] [place] [phone] Antonia Banda, PA-C [address] [facility] [address] [place] [address] Social History Tobacco Use Types Packs/Day Years [...] documented as of this encounter Care Teams Die Grinder Relationship Specialty Start Date End Date Ziggy Dejesus MD PCP - General 02/22/17 documented as of this encounter
--- OUTSIDE RECORDS SUMMARY | 2025-07-16 11:23 | XMS_ITS | Patient Health Record ---
Author Organization The [facility] in [place] Address [address] [place] [address] Care Team Providers Care Director Of Maternity Services Name Role Phone Deacon Dejesus Primary Care Provider [phone] Allergies Allergen (clinical drug ingredient) Drug/Non Drug [...] 02:10:19 PM Interpretation: Performing Lab: Notes/Report: [facility] , Amylase 136 25-115 U/L Performing Lab: see note ML - [facility] LB CBC AUTO DIFF Reviewed date:07/14/2025 02:10:19 PM Interpretation: Performing Lab: Notes/Report: [facility] , White Blood Count 5.4 [...] Performing Lab: see note ML - [facility] LB CRP Reviewed date:07/14/2025 02:10:19 PM Interpretation: Performing Lab: Notes/Report: [facility] , C Reactive Protein <0.50 <=0.50 mg/dL Performing Lab: see note ML - [facility] LB LIPASE Reviewed date:07/14/2025 02:10:19 PM Interpretation: Performing Lab: Notes/Report: [facility] , Lipase 99.0 16.0-77.0 U/L Performing Lab: see note ML - [facility] LB PROF 14(COMP METB) Reviewed date:07/14/2025 02:10:19 PM Interpretation: Performing Lab: Notes/Report: [facility] , Sodium 142 136-145 mmol/L Potassium 3.9 3.5-5.1 mmol/L Chloride 101 98-107 mmol/L Carbon Dioxide 33.2 21.0-32.0 mmol/L Anion Gap 11.7 Glucose 106 74-106 mg/dL Blood Urea Nitrogen 18.0 7.0-18.0 mg/dL Creatinine 0.72 0.55-1.02 mg/dL Estimated GFR ( [place] >60 >=60 mL/min/1.73m 2 Estimated GFR (Non- [place] >60 >=60 mL/min/1.73m 2 BUN Creatinine Ratio 25.0 Calcium 9.9 8.5-10.1 mg/dL Bilirubin Total 0.3 0.2-1.0 mg/dL Aspartate Amino Transferase 19 15-37 U/L Alanine Aminotransferase 31 14-59 U/L Alkaline Phosphatase 115 46-116 U/L Total Protein 7.5 6.4-8.2 g/dL Albumin Level 3.8 3.4-5.0 g/dL Globulin 3.7 Albumin Globulin Ratio 1.0 Performing Lab: see note ML - [facility] LB CBC AUTO DIFF Reviewed date:08/05/2024 02:30:38 PM Interpretation: Performing Lab: Notes/Report: [facility] , White Blood Count 4.5 [...] Lab: see note ML - [facility] LB FERRITIN Reviewed date:08/05/2024 06:07:34 PM Interpretation: Performing Lab: Notes/Report: [facility] , Ferritin 42.0 8.0-252.0 ng/mL Performing Lab: see note - [facility] LB FOLATE Reviewed date:08/05/2024 06:07:34 PM Interpretation: Performing Lab: Notes/Report: [facility] , Folate 34.40 8.60-58.90 ng/mL Performing Lab: see note - [facility] LB IRON AND TIBC Reviewed date:08/05/2024 06:07:34 PM Interpretation: Performing Lab: Notes/Report: [facility] , Iron 73.0 50.0-170.0 ug/dL Total Iron Binding Capacity 348.0 250.0-450.0 ug/dL Percent Iron Saturation 21.0 Performing Lab: see note - [facility] LB VITAMIN D 25 [place] Reviewed date:08/05/2024 06:07:34 PM Interpretation: Performing Lab: Notes/Report: [facility] , Vitamin D 69.2 <20 ng/mL Vit D deficient 20-<30 ng/mL Vit D insufficient 30-100 ng/mL Vit D sufficient >100 ng/mL Potential Toxicity Performing Lab: see note - [facility] LB Vitamin B1 (Thiamine), Blood Reviewed date:08/09/2024 04:01:33 PM Interpretation: Performing Lab: Notes/Report: [facility] , Vitamin B1 (Thiamine), Blood 180.1 66.5-200.0 nmol/L This test was developed and its performance characteristics determined by [facility]. It has not been cleared or approved by the Food and Drug Administration. Performed at: [address] [id number] Forest Supervisor: Toni Guidry MD, Phone: [phone] Performing Lab: see note - [facility] LB AMYLASE Reviewed date:10/01/2024 03:36:44 PM Interpretation: Performing Lab: Notes/Report: [facility] , Amylase 234 25-115 U/L Performing Lab: see note - [facility] LB CBC AUTO DIFF Reviewed date:10/01/2024 03:36:44 PM Interpretation: Performing Lab: Notes/Report: [facility] , White Blood Count 6.7 4.0-11.0 10 [...] Performing Lab: see note ML - [facility] LB LACTATE or LACTIC ACID Reviewed date:10/01/2024 03:36:44 PM Interpretation: Performing Lab: Notes/Report: [facility] , Lactate/Lactic Acid 1.0 0.4-2.0 mmol/L Performing Lab: see note ML - [facility] LB LIPASE Reviewed date:10/01/2024 03:36:44 PM Interpretation: Performing Lab: Notes/Report: [facility] , Lipase 163.0 16.0-77.0 U/L Performing Lab: see note ML - [facility] LB LIPID PROFILE Reviewed date:10/01/2024 03:36:44 PM Interpretation: Performing Lab: Notes/Report: [facility] , Triglycerides 95 <=150 mg/dL [...] Performing Lab: see note ML - [facility] LB LIVER PROFILE Reviewed date:10/01/2024 03:36:44 PM Interpretation: Performing Lab: Notes/Report: [facility] , Bilirubin Total 0.3 0.2-1.0 mg/dL Bilirubin Direct 0.1 0.0-0.2 mg/dL Aspartate Amino Transferase 29 15-37 U/L Alanine Aminotransferase 51 14-59 U/L Alkaline Phosphatase 114 46-116 U/L Total Protein 7.3 6.4-8.2 g/dL Albumin Level 3.8 3.4-5.0 g/dL Globulin 3.5 Albumin Globulin Ratio 1.1 Performing Lab: see note ML - [facility] LB MAGNESIUM Reviewed date:10/01/2024 03:36:44 PM Interpretation: Performing Lab: Notes/Report: [facility] , Magnesium 2.3 1.8-2.4 mg/dL Performing Lab: see note ML - [facility] LB PROF CHEM 8 (BAS METB) Reviewed date:10/01/2024 03:36:44 PM Interpretation: Performing Lab: Notes/Report: [facility] , Sodium 140 136-145 mmol/L [...] 10.2 8.5-10.1 mg/dL Performing Lab: see note - [facility] LB PTT Reviewed date:10/01/2024 03:36:44 PM Interpretation: Performing Lab: Notes/Report: [facility] , Partial Thromboplastin Time 30.2 22.3-36.2 sec Performing Lab: see note - [facility] LB Prothrombin Time INR Reviewed date:10/01/2024 03:36:44 PM Interpretation: Performing Lab: Notes/Report: [facility] , Prothrombin Time 10.8 9.0-11.6 sec INR 1.02 DESIRED INR: 2.0-3.0 CONDITIONS NOT LISTED BELOW 2.5-3.5 FOR PROSTHETIC HEART VALVE REPLACEMENT 2.5-3.5 RECURRENT THROMBOSIS Performing Lab: see note - [facility] LB ECG 12 lead Reviewed date:10/05/2024 08:20:23 PM Interpretation: Performing Lab: Notes/Report: Source Facility: [place] [address] Electrocardiograph Report Signed Patient: JOSE ALBERTO SALEEM MR#: [id number] : 1965 Acct:[id number] Age/Sex: 59 / F ADM Date: 09/30/24 Loc: [place] 215-[address]: Ashley Dejesus M.D. Ordering Physician: Cyrus Woodall M.D. 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 Signed By: 10/02/24 1630 DD/ 1738 TD/TT: Hammerer Helper: Blood Culture 1 Reviewed date:10/06/2024 08:37:09 PM Interpretation: Performing Lab: Notes/Report: [facility] , Blood Culture 1 See Below For Report Blood Culture 1 NG5D NO GROWTH AT 5 DAYS. Performing Lab: see note ML - [facility] LB Blood Culture 2 Reviewed date:10/06/2024 08:37:09 PM Interpretation: Performing Lab: Notes/Report: [facility] , Blood Culture 2 See Below For Report Blood Culture 2 NG5D NO GROWTH AT 5 DAYS. Performing Lab: see note - [facility] LB CBC AUTO DIFF Reviewed date:10/05/2024 08:20:23 PM Interpretation: Performing Lab: Notes/Report: [facility] , White Blood Count 5.4 [...] Lab: see note ML - [facility] LB LIPASE Reviewed date:10/05/2024 08:20:23 PM Interpretation: Performing Lab: Notes/Report: [facility] , Lipase 168.0 16.0-77.0 U/L Performing Lab: see note - [facility] LB PROF 14(COMP METB) Reviewed date:10/05/2024 08:20:23 PM Interpretation: Performing Lab: Notes/Report: [facility] , Sodium 143 136-145 mmol/L [...] 1.1 Performing Lab: see note ML - [facility] LB US right upper quadrant Reviewed date:10/05/2024 08:20:23 PM Interpretation: Performing Lab: Notes/Report: Source Facility: [facility]-[address] [place] [address] [place] [address] Ultrasound Report Signed Patient: JOSE ALBERTO SALEEM MR#: [id number] : 1965 Acct:[id number] Age/Sex: 59 / F ADM Date: 09/30/24 Loc: [place] 215-[address]: Ashley Dejesus M.D. Ordering Physician: Ashley Dejesus M.D. Date of Service: 10/02/24 Procedure(s): US right upper quadrant Accession Number(s): [id number] cc: Ashley Dejesus M.D. The [address] [address] Patient Name: JOSE ALBERTO SALEEM MRN: [id number] date: 1965 Sex: F Assigned Patient Location: [place] Current Patient Location: [place] Accession/Order Number: [id number] Exam Date: 10/02/2024 07:40 Report Date: 10/02/2024 [...] Jae Wilson M.D. Signed By: 10/02/2443 DD/ TD/TT: Hammerer Helper: AMYLASE Reviewed date:01/04/2025 03:44:31 PM Interpretation: Performing Lab: Notes/Report: [facility] , Amylase 306 25-115 U/L RESULTS CALLED TO COLE SYKES LPN at 0929 Performing Lab: see note ML - [facility] LB LACTATE or LACTIC ACID Reviewed date:01/04/2025 03:44:31 PM Interpretation: Performing Lab: Notes/Report: [facility] , Lactate/Lactic Acid 0.9 0.4-2.0 mmol/L Performing Lab: see note ML - [facility] LB LIPASE Reviewed date:01/04/2025 03:44:31 PM Interpretation: Performing Lab: Notes/Report: [facility] , Lipase 234.0 16.0-77.0 U/L Performing Lab: see note ML - [facility] LB PROF 14(COMP METB) Reviewed date:01/04/2025 03:44:31 PM Interpretation: Performing Lab: Notes/Report: [facility] , Sodium 144 136-145 mmol/L [...] Performing Lab: see note ML - [facility] LB Troponin I High Sensitivity Reviewed date:01/04/2025 03:44:31 PM Interpretation: Performing Lab: Notes/Report: [facility] , Troponin I High Sensitivity 6.1 4.0-51.3 pg/mL CUT-OFF POINTS HAVE BEEN ESTABLISHED BASED ON THE FOURTH UNIVERSAL DEFINITION OF MYOCARDIAL INFARCTION. THE UPPER REFERENCE LIMIT (URL) OF TROPONIN, DEFINED THE 99TH PERCENTILE OF cTnI DISTRIBUTION IN A REFERENCE POPULATION, HAS BEEN CONFIRMED THE DECISION THRESHOLD FOR NC DIAGNOSIS. 99TH PERCENTILE = 51.4 PG/ML NOTE: HIGH-SENSITIVITY TROPONIN ASSAY IS NOT INTENDED TO BE USED IN ISOLATION BUT SHOULD BE INTERPRETED IN CONJUNCTION WITH OTHER DIAGNOSTIC AND CLINICAL INFORMATION. Performing Lab: see note ML - [facility] LB UA Micro, reflex to culture Reviewed date:01/04/2025 03:44:31 PM Interpretation: Performing Lab: Notes/Report: [facility] , Color Urine LT. YELLOW YELLOW Clarity Urine CLEAR CLEAR Specific [place] Urine 1.010 1.005-1.025 pH Urine 7.5 5.0-9.0 [...] Performing Lab: see note ML - [facility] LB PROF 14(COMP METB) Reviewed date:01/04/2025 03:44:31 PM Interpretation: Performing Lab: Notes/Report: [facility] , Sodium 141 136-145 mmol/L [...] Performing Lab: see note ML - [facility] LB LIPASE Reviewed date:01/04/2025 03:44:31 PM Interpretation: Performing Lab: Notes/Report: [facility] , Lipase 569.0 16.0-77.0 U/L Performing Lab: see note ML - [facility] LB AMYLASE Reviewed date:01/04/2025 03:44:31 PM Interpretation: Performing Lab: Notes/Report: [facility] , Amylase 136 25-115 U/L Performing Lab: see note ML - [facility] LB LIPASE Reviewed date:01/04/2025 03:44:31 PM Interpretation: Performing Lab: Notes/Report: [facility] , Lipase 41.0 16.0-77.0 U/L Performing Lab: see note - [facility] LB PROF 14(COMP METB) Reviewed date:01/04/2025 03:44:31 PM Interpretation: Performing Lab: Notes/Report: [facility] , Sodium 144 136-145 mmol/L [...] 1.1 Performing Lab: see note ML - [facility] LB AMYLASE Reviewed date:05/06/2025 12:42:14 PM Interpretation: Performing Lab: Notes/Report: [facility] , Amylase 117 25-115 U/L Performing Lab: see note ML - [facility] LB CBC AUTO DIFF Reviewed date:05/06/2025 12:42:14 PM Interpretation: Performing Lab: Notes/Report: [facility] , White Blood Count 5.6 [...] Performing Lab: see note ML - [facility] LB FERRITIN Reviewed date:05/06/2025 12:42:14 PM Interpretation: Performing Lab: Notes/Report: [facility] , Ferritin 40.0 8.0-252.0 ng/mL Performing Lab: see note ML - [facility] LB FOLATE Reviewed date:05/06/2025 12:42:14 PM Interpretation: Performing Lab: Notes/Report: [facility] , Folate 48.70 8.60-58.90 ng/mL Performing Lab: see note ML - [facility] LB IRON AND TIBC Reviewed date:05/06/2025 12:42:14 PM Interpretation: Performing Lab: Notes/Report: [facility] , Iron 92.0 50.0-170.0 ug/dL Total Iron Binding Capacity 370.0 250.0-450.0 ug/dL Percent Iron Saturation 24.9 Performing Lab: see note ML - [facility] LB LIPASE Reviewed date:05/06/2025 12:42:14 PM Interpretation: Performing Lab: Notes/Report: [facility] , Lipase 50.0 16.0-77.0 U/L Performing Lab: see note ML - [facility] LB MAGNESIUM Reviewed date:05/06/2025 12:42:14 PM Interpretation: Performing Lab: Notes/Report: [facility] , Magnesium 2.2 1.8-2.4 mg/dL Performing Lab: see note ML - [facility] LB PHOSPHORUS Reviewed date:05/06/2025 12:42:14 PM Interpretation: Performing Lab: Notes/Report: [facility] , Phosphorus 3.7 2.6-4.7 mg/dL Performing Lab: see note ML - [facility] LB PROF 14(COMP METB) Reviewed date:05/06/2025 12:42:14 PM Interpretation: Performing Lab: Notes/Report: [facility] , Sodium 140 136-145 mmol/L [...] Globulin Ratio 1.0 Performing Lab: see note - [facility] VITAMIN D 25 [place] Reviewed date:05/06/2025 12:42:14 PM Interpretation: Performing Lab: Notes/Report: [facility] , Vitamin D 60.9 <20 ng/mL Vit D deficient 20-<30 ng/mL Vit D insufficient 30-100 ng/mL Vit D sufficient >100 ng/mL Potential Toxicity Performing Lab: see note [facility] Vitamin B1 (Thiamine), Blood Reviewed date:05/12/2025 08:16:07 PM Interpretation: Performing Lab: Notes/Report: [facility] , Vitamin B1 (Thiamine), Blood 203.9 66.5-200.0 nmol/L This test was developed and its performance characteristics determined by [facility]. It has not been cleared or approved by the Food and Drug Administration. Performed at: [address] [id number] Forest Supervisor: Toni Guidry MD, Phone: [phone] Performing Lab: see note [facility] Vitamin B12 Reviewed date:05/07/2025 10:15:53 PM Interpretation: Performing Lab: Notes/Report: [facility] , Vitamin B12 8549 201-9189 pg/mL Performed at: [address] [id number] Forest Supervisor: Afshin Martinez PhD, Phone: [phone] Performing Lab: see note [facility] AMYLASE Reviewed date:07/04/2025 12:56:51 PM Interpretation: Performing Lab: Notes/Report: [facility] , Amylase 173 25-115 U/L Performing Lab: see note - [facility] CBC AUTO DIFF Reviewed date:07/04/2025 12:56:51 PM Interpretation: Performing Lab: Notes/Report: [facility] , White Blood Count 4.7 4.0-11.0 10 [...] 3/uL Performing Lab: see note ML - [facility] FERRITIN Reviewed date:07/08/2025 06:00:19 PM Interpretation: Performing Lab: Notes/Report: [facility] , Ferritin 36.0 8.0-252.0 ng/mL Performing Lab: see note ML - [facility] LB IRON AND TIBC Reviewed date:07/04/2025 12:56:51 PM Interpretation: Performing Lab: Notes/Report: [facility] , Iron 85.0 50.0-170.0 ug/dL Total Iron Binding Capacity 364.0 250.0-450.0 ug/dL Percent Iron Saturation 23.4 Performing Lab: see note ML - [facility] LB LIPASE Reviewed date:07/04/2025 12:56:51 PM Interpretation: Performing Lab: Notes/Report: [facility] , Lipase 389.0 16.0-77.0 U/L Performing Lab: see note ML - [facility] LB PROF 14(COMP METB) Reviewed date:07/04/2025 12:56:51 PM Interpretation: Performing Lab: Notes/Report: [facility] , Sodium 140 136-145 mmol/L Potassium 3.9 [...] 1.0 Performing Lab: see note ML - [facility] LB TSH Reviewed date:07/04/2025 12:56:51 PM Interpretation: Performing Lab: Notes/Report: [facility] , Thyroid Stimulating Hormone 2.347 0.358-3.740 uIU/mL Performing Lab: see note ML - [facility] LB VITAMIN D 25 [place] Reviewed date:07/08/2025 06:00:19 PM Interpretation: Performing Lab: Notes/Report: [facility] , Vitamin D 64.9 <20 ng/mL Vit D deficient 20-<30 ng/mL Vit D insufficient 30-100 ng/mL Vit D sufficient >100 ng/mL Potential Toxicity Performing Lab: see note - [facility] LB Vitamin B12 Reviewed date:07/05/2025 02:23:19 PM Interpretation: Performing Lab: Notes/Report: [facility] , Vitamin B12 >1999 232-1245 pg/mL Performed at: [facility] [address] [id number] Forest Supervisor: Afshin Martinez PhD, Phone: [phone] Performing Lab: see note [facility] LB Folate (Folic Acid), Serum Reviewed date:07/06/2025 12:50:56 PM Interpretation: Performing Lab: Notes/Report: [facility] , Folate (Folic Acid), Serum >20.0 >3.0 ng/mL A serum folate concentration of less than 3.1 ng/mL is considered to represent clinical deficiency. Performed at: [facility] [address] [id number] Forest Supervisor: Afshin Martinez PhD, Phone: [phone] Performing Lab: see note [facility] LB AMYLASE Reviewed date:07/07/2025 04:43:54 PM Interpretation: Performing Lab: Notes/Report: [facility] , Amylase 264 25-115 U/L Performing Lab: see note - [facility] LB CBC AUTO DIFF Reviewed date:07/07/2025 04:43:54 PM Interpretation: Performing Lab: Notes/Report: [facility] , White Blood Count 6.3 4.0-11.0 10 [...] Lab: see note ML - [facility] LB LIPASE Reviewed date:07/07/2025 04:43:54 PM Interpretation: Performing Lab: Notes/Report: [facility] , Lipase 402.0 16.0-77.0 U/L Performing Lab: see note [facility] LB PROF 14(COMP METB) Reviewed date:07/07/2025 04:43:54 PM Interpretation: Performing Lab: Notes/Report: [facility] , Sodium 136 136-145 mmol/L Potassium 4.0 [...] 1.1 Performing Lab: see note ML - [facility] LB CT abdomen pelvis w con Reviewed date:07/07/2025 04:43:54 PM Interpretation: Performing Lab: Notes/Report: Source Facility: [facility]-[address] [place] [address] [address] [address] Scan Report Signed Patient: JOSE ALBERTO SALEEM MR#: [id number] : 1965 Acct:[id number] Age/Sex: 60 / F ADM Date: 07/06/25 Loc: ER Attending Dr: Ordering Physician: Alex Blount Date of Service: 07/06/25 Procedure(s): CT abdomen pelvis w con Accession Number(s): [id number] cc: Ashley Dejesus M.D. [place] [address] Patient Name: JOSE ALBERTO SALEEM MRN: [id number] date: 1965 Sex: F Assigned Patient Location: ER Current Patient Location: ER Accession/Order Number: [id number] Exam Date: 07/06/2025 19:48 Report Date: 07/06/2025 [...] Alejandra M.D. 07/06/2025 8:28 PM Dictation Location: [place] [address] Electronically authenticated by: [id number] Y Date: 07/06/2025 20:28 Dictated By: Dylon Alejandra M.D. Signed By: 07/06/252030 DD/ 27 TD/TT: Hammerer Helper: CBC AUTO DIFF Reviewed date:07/07/2025 04:43:54 PM Interpretation: Performing Lab: Notes/Report: [facility] , White Blood Count 5.5 4.0-11.0 10 [...] Performing Lab: see note ML - [facility] LB LIPASE Reviewed date:07/07/2025 04:43:54 PM Interpretation: Performing Lab: Notes/Report: [facility] , Lipase 100.0 16.0-77.0 U/L Performing Lab: see note ML - [facility] LB LIPID PROFILE Reviewed date:07/07/2025 04:43:54 PM Interpretation: Performing Lab: Notes/Report: [facility] , Triglycerides 232 <=150 mg/dL Cholesterol 207 [...] RISK Performing Lab: see note ML - [facility] MAGNESIUM Reviewed date:07/07/2025 04:43:54 PM Interpretation: Performing Lab: Notes/Report: [facility] , Magnesium 2.3 1.8-2.4 mg/dL Performing Lab: see note ML - [facility] PHOSPHORUS Reviewed date:07/07/2025 04:43:54 PM Interpretation: Performing Lab: Notes/Report: [facility] , Phosphorus 4.8 2.6-4.7 mg/dL Performing Lab: see note ML - [facility] Prothrombin Time INR Reviewed date:01/04/2025 03:44:31 PM Interpretation: Performing Lab: Notes/Report: [facility] , Prothrombin Time 10.9 9.0-11.6 sec INR 1.03 DESIRED INR: 2.0-3.0 CONDITIONS NOT LISTED BELOW 2.5-3.5 FOR PROSTHETIC HEART VALVE REPLACEMENT 2.5-3.5 RECURRENT THROMBOSIS Performing Lab: see note ML - [facility] LB PTT Reviewed date:01/04/2025 03:44:31 PM Interpretation: Performing Lab: Notes/Report: [facility] , Partial Thromboplastin Time 31.4 22.3-36.2 sec Performing Lab: see note ML - [facility] LB LIPID PROFILE Reviewed date:01/04/2025 03:44:31 PM Interpretation: Performing Lab: Notes/Report: [facility] , Triglycerides 124 <=150 mg/dL [...] Performing Lab: see note ML - [facility] LB CBC AUTO DIFF Reviewed date:01/04/2025 03:44:31 PM Interpretation: Performing Lab: Notes/Report: [facility] , White Blood Count 5.0 [...] 3/uL Performing Lab: see note - [facility] LB AMMONIA Reviewed date:01/04/2025 03:44:31 PM Interpretation: Performing Lab: Notes/Report: [facility] , Ammonia 24 11-32 umol/L Performing Lab: see note - [facility] LB CBC AUTO DIFF Reviewed date:01/04/2025 03:44:31 PM Interpretation: Performing Lab: Notes/Report: [facility] , White Blood Count 6.5 [...] Lab: see note ML - [facility] LB CBC AUTO DIFF Reviewed date:01/04/2025 03:44:31 PM Interpretation: Performing Lab: Notes/Report: [facility] , White Blood Count 5.0 [...] Performing Lab: see note ML - [facility] LB LIPASE Reviewed date:10/05/2024 08:20:23 PM Interpretation: Performing Lab: Notes/Report: [facility] , Lipase 75.0 16.0-77.0 U/L Performing Lab: see note - [facility] LB PROF 14(COMP METB) Reviewed date:10/05/2024 08:20:23 PM Interpretation: Performing Lab: Notes/Report: [facility] , Sodium 141 136-145 mmol/L [...] 1.1 Performing Lab: see note ML - [facility] LB LIPASE Reviewed date:10/05/2024 08:20:23 PM Interpretation: Performing Lab: Notes/Report: [facility] , Lipase 42.0 16.0-77.0 U/L Performing Lab: see note ML - [facility] LB LIPASE Reviewed date:10/01/2024 03:36:44 PM Interpretation: Performing Lab: Notes/Report: [facility] , Lipase 227.0 16.0-77.0 U/L Performing Lab: see note ML - [facility] LB PROF 14(COMP METB) Reviewed date:10/01/2024 03:36:44 PM Interpretation: Performing Lab: Notes/Report: [facility] , Sodium 142 136-145 mmol/L [...] Performing Lab: see note ML - [facility] LB LIPASE Reviewed date:10/01/2024 03:36:44 PM Interpretation: Performing Lab: Notes/Report: [facility] , Lipase 57.0 16.0-77.0 U/L Performing Lab: see note ML - [facility] LB CBC AUTO DIFF Reviewed date:10/01/2024 03:36:44 PM Interpretation: Performing Lab: Notes/Report: [facility] , White Blood Count 4.8 4.0-11.0 10 [...] 10 3/uL Performing Lab: see note - [facility] LB AMMONIA Reviewed date:10/01/2024 03:36:44 PM Interpretation: Performing Lab: Notes/Report: [facility] , Ammonia 26 11-32 umol/L Performing Lab: see note - [facility] LB CT abdomen pelvis w con Reviewed date:10/01/2024 03:36:44 PM Interpretation: Performing Lab: Notes/Report: Source Facility: [facility]-[address] [place] [address] CT Scan Report Signed Patient: JOSE ALBERTO SALEEM MR#: [id number] : 1965 Acct:[id number] Age/Sex: 59 / F ADM Date: 09/30/24 Loc: ER Attending Dr: Ordering Physician: Cyrus Woodall M.D. Date of Service: 09/30/24 Procedure(s): CT abdomen pelvis w con Accession Number(s): [id number] cc: Ashley Dejesus M.D. [place] [address] Patient Name: JOSE ALBERTO SALEEM MRN: [id number] date: 1965 Sex: F Assigned Patient Location: ER Current Patient Location: ED.MAIN Accession/Order Number: [id number] Exam Date: 09/30/2024 18:06 Report Date: 09/30/2024 [...] M.D. Signed By: 09/30/241852 DD/ 49 TD/TT: Hammerer Helper: BROOKLYNN ALEXIS W or MICROSCOPIC Reviewed date:10/01/2024 03:36:44 PM Interpretation: Performing Lab: Notes/Report: [facility] , Color Urine LT. YELLOW YELLOW Clarity Urine CLEAR CLEAR Specific [place] Urine 1.010 1.005-1.025 pH Urine 7.0 5.0-9.0 [...] #/LPF Performing Lab: see note ML - [facility] LB PROF 14(COMP METB) Reviewed date:09/29/2024 08:35:22 PM Interpretation: Performing Lab: Notes/Report: [facility] , Sodium 143 136-145 mmol/L Potassium 4.2 3.5-5.1 mmol/L Chloride 103 98-107 mmol/L Carbon Dioxide 35.4 21.0-32.0 mmol/L Anion Gap 8.8 Glucose 97 74-106 mg/dL Blood Urea Nitrogen 16.0 7.0-18.0 mg/dL Creatinine 0.73 0.55-1.02 mg/dL Estimated GFR ( Ehlena >60 >=60 mL/min/1.73m 2 Estimated GFR (Non- Florencia >60 >=60 mL/min/1.73m 2 BUN Creatinine Ratio 21.9 Calcium 9.8 8.5-10.1 mg/dL Bilirubin Total 0.5 0.2-1.0 mg/dL Aspartate Amino Transferase 30 15-37 U/L Alanine Aminotransferase 52 14-59 U/L Alkaline Phosphatase 118 46-116 U/L Total Protein 7.5 6.4-8.2 g/dL Albumin Level 4.0 3.4-5.0 g/dL Globulin 3.5 Albumin Globulin Ratio 1.1 Performing Lab: see note ML - [facility] LB LIPID PROFILE Reviewed date:09/29/2024 08:35:22 PM Interpretation: Performing Lab: Notes/Report: [facility] , Triglycerides 205 <=150 mg/dL [...] RISK Performing Lab: see note ML - [facility] LB LIPASE Reviewed date:09/29/2024 08:35:22 PM Interpretation: Performing Lab: Notes/Report: [facility] , Lipase 737.0 16.0-77.0 U/L Performing Lab: see note - [facility] LB AMYLASE Reviewed date:09/29/2024 08:35:22 PM Interpretation: Performing Lab: Notes/Report: [facility] , Amylase 295 25-115 U/L Performing Lab: see note - [facility] LB Vitamin B12 Reviewed date:08/06/2024 09:18:02 PM Interpretation: Performing Lab: Notes/Report: [facility] , Vitamin B12 >1999 232-1245 pg/mL Performed at: [facility] [address] [id number] Forest Supervisor: Afshin Martinez PhD, Phone: [phone] Performing Lab: see note - [facility] LB PROF 14(COMP METB) Reviewed date:08/05/2024 03:01:27 PM Interpretation: Performing Lab: Notes/Report: [facility] , Sodium 139 136-145 mmol/L [...] 1.1 Performing Lab: see note ML - [facility] LB PHOSPHORUS Reviewed date:08/05/2024 03:01:27 PM Interpretation: Performing Lab: Notes/Report: [facility] , Phosphorus 3.8 2.6-4.7 mg/dL Performing Lab: see note ML - [facility] LB MAGNESIUM Reviewed date:08/05/2024 03:01:27 PM Interpretation: Performing Lab: Notes/Report: [facility] , Magnesium 2.1 1.8-2.4 mg/dL Performing Lab: see note ML - [facility] LB PROF 14(COMP METB) Reviewed date:07/07/2025 04:43:54 PM Interpretation: Performing Lab: Notes/Report: [facility] , Sodium 141 136-145 mmol/L [...] Performing Lab: see note ML - [facility] LB UA Micro, reflex to culture Reviewed date:07/07/2025 06:53:30 PM Interpretation: Performing Lab: Notes/Report: [facility] , Color Urine LT YELLOW YELLOW Clarity Urine CLEAR CLEAR Specific [place] Urine <=1.005 1.005-1.025 pH Urine 5.5 5.0-9.0 [...] Performing Lab: see note ML - [facility] LB ECG 12 lead Reviewed date:07/07/2025 04:43:54 PM Interpretation: Performing Lab: Notes/Report: Source Facility: [place] [address] Electrocardiograph Report Signed Patient: JOSE ALBERTO SALEEM MR#: [id number] : 1965 Acct:[id number] Age/Sex: 60 / F ADM Date: 07/06/25 Loc: [place] [address]: David Wang M.D. Ordering Physician: David Wang M.D. Date of Service: 07/07/25 Procedure(s): ECG 12 lead Accession Number(s): [id number] cc: [facility] Test Date: 2025-07-07 Pat Name: JOSE ALBERTO SALEEM Department: Room: [facility] Gender: Female Preboarder: : 1965 Requested By: [id number] Order Number: [id number] Reading MD: DIEGO ALFARO Measurements Intervals [place] Rate: 58 P: 77 HI: 156 QRS: -50 QRSD: 100 T: -15 [...] 07/07/25 1258 07/07/25 1258 DD/ 0538 TD/TT: Hammerer Helper: LIPASE Reviewed date:07/08/2025 12:28:15 PM Interpretation: Performing Lab: Notes/Report: [facility] , Lipase 43.0 16.0-77.0 U/L Performing Lab: see note ML - [facility] LB Erythrocyte Sedimentation Ra te Reviewed date:07/14/2025 02:10:19 PM Interpretation: Performing Lab: Notes/Report: [facility] , Erythrocyte Sedimentation Rate 16 <=30 mm/hr Performing Lab: see note ML - [facility] LB Reason For Referral Diagnosis 1 Chronic pancreatitis (K86.1) Referral Organization [facility] Medicine Referring Provider First Name Deacon Referring Provider Last Name Anjelica Referring Provider Speciality [facility] wilfrid Referred Provider Chauncey Cooper Referred [...] Duration: 6 Days Active Estradiol Active Pancrelipase (Eyp-Bxxp-Xdnm) 17588-15875 UNIT 1 capsule Orally ac and hs [...] lly Once a day 08/27/2024 Active Nystatin 589143 UNIT/GM 1 application Externally Twice a day; [...] preservative free Unknown 07/29/2009 Administered Flu, Flucelvax (11010) 2 yrs +, single-dose syringe (3273-4048) Unknown 07/26/2017 Administered Flu, Fluzone (29776) 6 mos+, single-dose syringe/vial (0561-0149) Unknown 06/05/2023 Administered Flu, Unspecified Unknown 06/15/2014 [...] Notes Problem Benign neoplasm of soft tissue (12903480) Benign neoplasm of connective and other soft tissue, 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 Problem Snoring (08706553) Snoring (R06.83) Active conf irmed Problem Right upper quadrant pain (469332104) Right upper quadrant pain (R10.11) Active confirmed Problem Abdominal pain (27249144) Abdominal pain (R10.9) Active confirmed Problem Fatigue (35440207) Fatigue (R53.83) Active conf irmed Problem Hyperlipidemia (65754839) Hyperlipidemia (E78.5) Active confirmed Problem Hyperlipidaemia (91459503) Hyperlipemia (E78.5) Active confirmed Problem Hypertension (52229336) Hypertension (I10) Active confirmed Problem Gastroesophageal reflux disease (140512690) GERD (gastroesophageal reflux disease) (K21.9) Active confirmed Problem Coronary artery disease (14176792) CAD (coronary artery disease) (I25.10) Active confirmed Problem Ischemic cardiomyopathy (413231669) Cardiomyopathy, ischemic (I25.5) Active confirmed Problem Depression (105539523) Depression (F32.9) Active confirmed Problem Essential hypertension (73389675) Benign essential HTN (I10) Active confirmed Problem Hypertriglyceridemia (840099610) Hypertriglyceridemia (E78.1) Active confirmed Problem Arthralgia (38328845) Arthralgia (M25.50) Active confirmed Problem Chronic pancreatitis (274495742) Chronic pancreatitis (K86.1) Active confirmed Problem Essential hypertension (53916661) BP (high blood pressure) (I10) Active confirmed Problem hypercholesterolemia (disorder) (26148266) Hypercholesteremia (E78.00) Active confirmed Problem Hypercholesterolemia (27739811) Hypercholesterolemia (E78.00) Active confirmed Problem Type II diabetes mellitus without complication (245969871) Controlled type 2 diabetes mellitus (E11.9) Active confirmed Problem Acute UTI (urinary tract infection) (970231558) Acute UTI (urinary tract infection) (N39.0) Active confirmed Problem Old myocardial infarction (3044380) Acute myocardial infarct greater than 3 months ago (I25.2) Active confirmed Problem Acute pancreatitis (228267522) Acute pancreatitis (K85.90) Active confirmed Vital Signs Temperature 97.6 degrees Fahrenheit 02/18/2025 Blood pressure diastolic 78 mm Hg 07/14/2025 Height 63 in 07/14/2025 Blood pressure systolic 140 mm Hg 07/14/2025 Weight 181.0 lbs 07/14/2025 BMI 32.06 kg/m2 07/14/2025 Procedures Procedure Date Ordered Date Performed Result Body Sit e Sleep study - Diagnostic Polysonogram 01/08/2025 N/A Encounters Encounter Location Date Provider Diagnosis [facility] [address] [place] [address] 06/11/2025 Deacon estefani [facility] [address] [facility] [place] [address] 07/04/2025 [facility] [address] [facility] [place] [place] [address] 07/08/2025 [facility] [address] [facility] [place] [place] [address] 07/08/2025 [facility] [address] [facility] [place] [address] 07/14/[address] [facility] [address] [facility] [place] [address] 04/16/2025 [facility] [address] [facility] [place] [address] 05/06/2025 Deacon Dejesus Fatigue R53.83 [facility] [address] [place] [address] 05/06/2025 Deacon estefani [facility] [address] [place] [address] 05/15/2025 Deacon estefani [facility] [address] [facility] [place] [address] 05/15/2025 Deacon estefani [facility] [address] [facility] [place] [place] [address] 05/18/2025 [facility] [address] [facility] [place] [address] 11/10/2024 Deacon Gordilloestefani [facility] [address] [place] [address] 11/27/2024 Deacon Hoy Acute pancreatitis K 85.90 [facility] [address] [place] [address] 01/02/[address] [facility] [address] [place] [address] 02/09/2025 Deacon Duyy [facility] [address] [place] [address] 03/05/2025 Deacon Hoy Chronic pancreatitis K86.1 [facility] [address] [facility] [place] [address] 03/05/2025 Deacon Hoy Chronic pancreatitis K86.1 [facility] [address] [facility] [place] [address] 08/05/2024 Deacon Duyy [facility] [address] [facility] [place] [place] [address] 08/20/[address] [facility] [address] [place] [address] 09/25/2024 Deacon Gordilloestefani [facility] [address] [facility] [place] [address] 09/29/2024 Deacon Anjelica [facility] [address] [facility] [place] [place] [address] 10/03/2024 Deacon Duyy [facility] [address] [facility] [place] [address] 10/07/2024 Deacon Hoy Chronic pancreatitis K86.1 [facility] [address] [facility] [place] [place] [address] 07/06/2025 Deacon Hoy Acute pancreatitis K 85.90 [facility] [address] [facility] [place] [address] 08/27/2024 Deacon Hoy CAD (coronary artery disease) I25.10 ; Hypertriglyceridemia E78.1 and Hypertension I10 [facility] [address] [place] [address] 10/07/2024 Deacon Hoy Chronic pancreatitis K86.1 [facility] [address] [place] [address] 01/08/2025 Deacon Hoy Fatigue R53.83 ; Sno ring R06.83 and Chronic pancreatitis K86.1 [facility] [address] [place] [address] 02/18/2025 Deacon Hoy Acute bronchitis, un specified organism J20.9 [place] [address] [place] [address] 07/14/2025 Deacon Hoy GERD (gastroesophage al reflux [...] vaporizer to help keep the drainage moist. Wnzg-red-thbyahy Nasal Saline may help the stuffy and runny nose. Use Ibuprofen and or Tylenol as needed for fever, chills, body aches or pain. Children 5 years old should not be given jhzb-ida-iiktugg cough and cold medications such as guaifenesin and dextromethorphan. If you're over age 5, you may try mkze-ffw-tbhilwe cold medications such as guaifenesin and dextromethorphan, [...] CULTURE URINE 11/12/2023 CULTURE URINE 04/28/2024 LIPASE 11/27/2024 LIPASE 08/27/2024 LIPID PROFILE 08/27/2024 LIVER PROFILE 11/13/2023 PROF 14(COMP METB) 08/27/2024 SED RATE WESTERGREN 07/14/2025 US ABD 04/28/2024 THYROID PANEL (T4/TSH/FREE T3) US abdomen complete 01/24/2024 Next Appt Details Provider Name:Deacon Dejesus, 05:00:00 PM, [address] [facility], [place], [address], Insurance Providers Payer Name Payer Address Payer Phone Subscriber Number Group Number Insured Name Patient Relationship to Insured Coverage Start Date Coverage End Date [employer] PPO PLUS LOCAL PLAN [address] [place] [phone] [id number] Jose Alberto Saleem Self - patient [...] of right wrist Surgical History Surgery Date(Month/Year) Hysteroscopy and D&C 06/18/2023 Gastric Bypass 01/29/2018 Sinus Surgery, Dr. Messer 12/2017 Cysto, Dr. Stoll 04/24/2018 & 018 Decompression of median nerv e and release and transverse carpal ligament- Right, Dr. Mckeon 07/19/2022 Cholecystectomy Coronary Artery Disease- S/P Bypass- 4 V essels- [facility] Peripheral Vascular Angioplasty Cardiac Cath, Left 2013 endoscope 03/06/24 Hospitalization History Reason Date(Month/Year) Pancreatitis 2024 Pancratitis 2023
--- OUTSIDE RECORDS SUMMARY | 2025-07-16 11:23 | XMS_ITS | Encounter Summary ---
Author Organization [employer] [facility] [employer] Address [id number] [address] [place] [address] Care Team Providers Care Vice President Payer Name Role Phone Ziggy Dejesus MD Primary Care Provider [phone] Reason for Visit * Reason Comments Med Refill Encounter Details Date Type Department Care Team (Late st Contact Info) Description 09/26/2023 Refill [facility] [address] [place] [phone] Antonia Banda, PA-C [address] [facility] [address] [place] [phone] [employer] Social History Tobacco Use Types Packs/Day [...] documented as of this encounter Care Teams Vice President Payer Relationship Specialty Start Date End Date Ziggy Dejesus MD PCP - General 02/22/17 documented as of this encounter
--- OUTSIDE RECORDS SUMMARY | 2025-07-16 11:23 | XMS_ITS | Clinical Summary ---
Author Organization [facility] Address [address] [place] [address] Care Team Providers Care Coffee Sommelier Name Role Phone Ziggy Dejesus MD Primary Care Provider [phone] Allergies Active Allergy Reactions Criticality Noted Date [...] EDT) Triglyceride 1338(H) 30 - 149 mg/dL [facility] Comment: Patient may be at risk for acute pancreatitis due to marked hypertriglyceridemia. Cholesterol, Total 296(H) 100 - 199 mg/dL [facility] HDL Cholesterol 25(L) >55 mg/dL [facility] VLDL Cholesterol Unable to calculate due to increased Triglycerides . See LDL-Chol, Direct. 6 - 40 mg/dL [facility] LDL Cholesterol, Calculated Unable to calculate due to increased Triglycerides . See LDL-Chol, Direct. 60 - 129 mg/dL [facility] Fasting Time 13 hrs [facility] TC:HDL Ratio 11.84(H) 1.00 - 5.00 [facility] LDL:HDL Ratio Unable to calculate 0.50 - 3.55 [facility] Non HDL Cholesterol 271(H) 90 - 159 mg/dL [facility] Blood specimen (specimen) BLOOD SPECIMEN / Unknown 03/22/2009 12:34 PM EDT us Lupe Park MD LABORATORY Final Resul t [facility] [address] [place] [address] * HGB A1C (03/22/2009 12:34 PM EDT) Hemoglobin A1C 5.6 4.0 - 6.0 % [facility] Blood specimen (specimen) BLOOD SPECIMEN / Unknown 03/22/2009 12:34 PM EDT us Lupe Park MD LABORATORY Final Resul t [facility] [address] [place] [address] from Last 3 Months or Most Recently Relevant to Health Maintenance Insurance [employer] Care Teams Coffee Sommelier Relationship Specialty Start Date End Date Ziggy Dejesus MD [address] [place] [address] PCP - General 03/15/06
--- OUTSIDE RECORDS SUMMARY | 2025-07-16 11:23 | XMS_ITS | Encounter Summary ---
Author Organization [facility] [facility] Address [id number] [address] [place] [address] Care Team Providers Care Crime Scene Examiner Name Role Phone Ziggy Dejesus MD Primary Care Provider [phone] Reason for Visit * Reason Comments Med Refill Encounter Details Date Type Department Care Team (Late st Contact Info) Description 01/10/2018 Refill [facility] [address] [place] [address] [place] [phone] Antonia Banda, PA-C [address] [facility] [address] [place] [address] S/P nasal septoplasty Social History Tobacco Use [...] status documented in this encounter Care Teams Crime Scene Examiner Relationship Specialty Start Date End Date Ziggy Dejesus MD PCP - General 02/22/17 documented as of this encounter
--- OUTSIDE RECORDS SUMMARY | 2025-07-16 11:23 | XMS_ITS | Clinical Summary ---
Author Organization [facility] Address [address] [place] [address] Care Team Providers Care Stage Set Designer Name Role Phone Unavailable Primary Care Provider Unavailabl e Encounters Date Type Department Care Team Description 06/18/2025 Telephone [facility] [address] [place], [place] [phone] Mirian Pitts Outside Medical Records Request from [...] PM EDT Office Visit [facility] [place] [facility] [address] [place] [address] Ramiro Britton MD [address] [place] [address] Health Maintenance Due Date Last Done [...] Additional history exists COVID-19 VACCINE ( - 2024- season) 2025 INFLUENZA VACCINE (#1) 2025 RSV VACCINE (1 - 1-dose 75+ series) 2039 HEP B VACCINE Aged Out No longer elig ible based on patient's age to complete this topic Insurance [facility] PPO POS
--- OUTSIDE RECORDS SUMMARY | 2025-07-16 11:24 | XMS_ITS | Clinical Summary ---
Author Organization [facility] Address [address] [place] [address] Care Team Providers Care Waste Water Treatment Plant Operator Name Role Phone Ziggy Dejesus MD Primary Care Provider [phone] Allergies Active Allergy Reactions Criticality Noted Date [...] A DAY. for 90 Active HYDROcodone-acetam inophen ([place]) 5-325 mg tablet 5 Active hyoscyamine (Anaspaz,Levsin) 0.125 mg tablet 2 tablet as needed Orally every 4 hrs PRN abd pain 4 Active ondansetron ODT (Zofran-ODT) 4 mg disintegrating tablet 5 Active hydroCHLOROthiazid e (HYDRODiuril) 25 mg tablet 5 Active pancrelipase, Ogy-Dlfk-Xozp, (Creon) 12,000-38,000 -60,000 unit capsuleIndications :Pancreatic insufficiency 1 capsule before snack. 90 capsule 5 Active pancrelipase, Wic-Qoye-Msyd, (Creon) 36,000-114,000- 180,000 unit capsule,delayed release(DR/EC) capsuleIndications [...] Xerostomia 02/26/2024 Atherosclerosis of coronary artery of [place] heart without angina pectoris 08/09/2023 Essential hypertension, [...] Type Department Care Team Description 05/19/2025 Telephone [facility] End[facility] [address] [place] [phone] Gisela Arellano, LUCIEN 05/19/2025 Orders Only [facility] [address] [place] [address] [place] [phone] Roberto Watson MD Pancreatic insufficiency 05/14/2025 Telephone [facility] [address] [place] [address] Nicole Locke MA 05/14/2025 Refill [facility] [address] [place] [address] Nicole Locke MA 05/14/2025 Telephone [facility] [address] [place] [address] [place] [phone] Roberto Watson MD 05/14/2025 Telephone [facility] [place] [facility] [address] [place] [address] [place] [phone] Gisela Arellano RN 05/08/2025 10:30 AM EDT Follow-Up [facility] [address] [place] [address] Chauncey Cooper MD Pancreatic insufficiency (Primary Dx); Sphincter of Oddi dysfunction from Last 3 Months Immunizations Immunization Administration Dates Next Due Influenza, High Dose Seasona l, Preservative Free 2022 Influenza, Unspecified 06/30/2021 Influenza, injectable, MDCK, preservative free, quadrivalent 06/03/2021,07/26/2017 Influenza, injectable, quadr ivalent, preservative free 06/05/2023,06/16/2022,2020,07/23 Influenza, seasonal, injectable 06/15/2014 Influenza, seasonal, injecta ble, preservative free, 6 moonths & older 06/05/2024,07/03/2015 Novel [id number], preservative-free 07/29/2009 Pfizer SARS-CoV-2 Vaccination 01/08/2021 Pneumococcal Polysaccharide PPV23 05/09/2017 Zoster, Recombinant 08/21/2022,06/16/2022 Family History Medical History Relation Name Comments Hyperlipidemia Brother 1 Wallback Heart attack Brother 2 Ray Hyperlipidemia Father Munoz Hyperlipidemia Mother Katharlatonia Relation Name Status Comments Brother 1 Wallback Brother 2 Ray Father Munoz Mother Katharyn [...] - 6.0 % 02/27/2024 2:02 PM EDT [facility] ([facility]) Estimated Average Glucose 100 mg/dL 02/27/2024 2:02 PM EDT [facility] ([facility] Blood Venous blood specimen / Unknown Venipuncture / Unknown 02/27/2024 12:18 PM EDT 02/27/2024 12:18 PM EDT us Danielle Magallon MD LAB BLOOD ORDERABLES Final Res ult [facility]) [address] [place], [place] [id number] from Last 3 Months or Most Recently Relevant to Health Maintenance Insurance [facility] Care Teams Waste Water Treatment Plant Operator Relationship Specialty Start Date End Date Ziggy Dejesus MD [address] [facility] [place] [address] PCP - General 02/18/24
--- OUTSIDE RECORDS SUMMARY | 2025-07-16 11:24 | XMS_ITS | Encounter Summary ---
Author Organization [facility] Address [address] [place] [address] Phone Care Team Providers Care Electric Organ Inspector And Repairer Name Role Phone Ziggy Dejesus MD Primary Care Provider [phone] Cindy Stoll OFFICE MACHINE SERVICE SUPERVISOR-STRUCTURES ENGINEER Unavailable [phone] Anita Hammonds RN Unavailable Unavailable Encounter Details Date Type Department Care Team (Late st Contact Info) Description 09/28/[address] [facility] [address] [place] [address] Conversion, Onbase Social History Tobacco Use Types [...] Description 08/18/2025 11:20 AM EST Office Visit [facility] [address] [facility] [address] [place] [phone] Celso Garibay DO [address] [facility] [address] [place] [address] Scheduled Orders Name Type Priority Associated Diagnoses Orde r Schedule OUTSIDE LAB SCAN Lab Ordered: 09/28/2021 documented as of this encounter Visit Diagnoses Not on filedocumented in this encounter Care Teams Electric Organ Inspector And Repairer Relationship Specialty Start Date End Date Ziggy Dejesus MD [address] [place] [address] PCP - General 08/17/21 Cindy Stoll, OFFICE MACHINE SERVICE SUPERVISOR-STRUCTURES ENGINEER [address] [facility] [address] [facility] [address] [place] [address] PCP - Karen LANEO PCP 01/29/22 06/30/22 Anita Hammonds, customer success directorCollection Agent 08/22/24 10/03/24 documented as of this encounter
--- OUTSIDE RECORDS SUMMARY | 2025-07-16 11:24 | XMS_ITS | CCD ---
Author Organization [facility] Care Team Providers Care Expense Clerk Name Role Phone UNKNOWN, PROVIDER Unavailable Unavailable ASHLEY GRIGSBY Unavailable Unavailable UNKNOWN, PROVIDER Unavailable Unavailable ASHLEY GRIGSBY Unavailable Unavailable Ashley Grigsby Primary Care Provider Ashley Grigsby Unavailable Unavailable Unavailable Ashley Grigsby MD Primary Care Provider [phone] Unavailable Unavailable Ashley Grigsby Primary Care Physician [...] Unavailable MD Ashley Grigsby Primary Care Provider [phone] MD Evert Bruno Attending Provider [phone] Evert Bruno Unavailable MD Ashley Grigsby Primary Care Provider [phone] MD Evert Bruno Attending Provider Ashley Grigsby MD Primary Care Provider GABY PHILLIPS Admitting Unavail able GABY PHILLIPS Attending Unavail able ASHLEY GRIGSBY M Primary Care Unavailable HOY, ASHLEY M Primary Care Unavailable Ashley Grigsby MD Primary Care Provider [phone] STEPHANIE BERGER Attending Unavailable SEB, ASHLEY M [...] Care Provider Lynnette Chapman MD Emergency Provider [phone] Donis Arroyo DO Admit Provider [phone] Donis Arroyo DO Attending Provider Anita [...] Unavailable Ashley Grigsby MD Primary Care Provider [phone] Ashley Grigsby MD Primary Care Provider [phone] CHAUNCEY KIMBLE Referring Unavailable ASHLEY GRIGSBY Primary Care Unavailable RADHA JAIMES Referring Unavailable ASHLEY GRIGSBY Primary Care Unavailable Ashley Grigsby MD Primary Care Provider [phone] NARANDI, ALI Attending Unavailable NAWRAS, ALI Referring [...] 017 Other (See Comments), Shortness of breath [place], [place] (20 sources) Latex; Translations: [LATEX] Propensity to adverse reactions to drug 006 Anaphylaxis, Shortness Of Breath, Anaphylaxis (disorder) [place] (16 sources) Penicillins; Translations: [penicillins] Propensity to adverse reactions to drug 006 Hives, Anaphylaxis (disorder) [place] (3 sources) rosuvastatin Drug Allergy 019 [place] (20 sources) Sulfamethoxazole / Trimethoprim; Translations: [Bactrim TABS] Drug Allergy 019 Hives [place], [place] (11 sources) natural latex rubber Allergy to substance (finding) Shortness [facility] Work Phone: (11 sources) Penicillins; Translations: [Penicillins] Allergy to drug (finding) Rash [facility] Work Phone: (20 sources) rosuvastatin; Translations: [Crestor TABS] Drug Allergy 017 Elevated liver enzymes level (finding), Other, Other (See Comments) [facility] (16 sources) Sulfonamides (Antibiotic); Translations: [Sulfa Drugs] Allergy to drug (finding) Hives [facility] (20 sources) levoFLOXacin; Translations: [levofloxacin] Drug Allergy 017 Other (See Comments), Candidiasis (disorder) [employer] Phone: (8 sources) Phenazopyridine; Translations: [PHENAZOPYRIDINE HCL] Drug Allergy Nausea And Vomiting [employer] Phone: (3 sources) Simvastatin; Translations: [SIMVASTATIN] [facility]: (15 sources) Sulfonamides (Antibiotic) Propensity to adverse reactions to drug Other (See Comments), Hives, Shortness of breath [facility] (12 sources) Tobramycin; Translations: [tobramycin] Drug Allergy 023 Eruption of skin (disorder), Rash [facility] (1 source) Baclofen Drug Allergy [facility] (1 source) Latex Drug allergy (disorder) [facility] (5 sources) levoFLOXacin; Translations: [Levaquin] Drug Allergy thrush [facility] (1 source) Penicillins Drug allergy (disorder) [facility] (1 source) rosuvastatin Drug Allergy [facility] (1 source) Sulfonamides (Antibiotic) Drug allergy (disorder) [facility] (11 sources) rosuvastatin; Translations: [ROSUVASTATIN] Drug Allergy 017 Gastrointestinal Upset [facility] (5 sources) Sulfamethoxazole; Translations: [sulfamethoxazole] Drug Allergy 023 Hives, Hives, ([place]) 08/08/2011 [facility] (20 sources) Trimethoprim; Translations: [trimethoprim] Drug Allergy 023 Hives, Hives, ([place]) 08/08/2011 [facility] (6 sources) Fenofibrate; Translations: [FENOFIBRATE] Drug Allergy 009 ([place]) 08/08/2011 [facility] Drop Messages (3 sources) Penicillin Drug Allergy ([place]) 08/08/2011 [facility] Other (9 sources) Substance with sulfonamide structure and antibacterial mechanism of action (substance) Drug allergy Shortness of breath, Hives [facility] Other (7 sources) Penicillins Propensity to adverse reactions to drug Hives, Rash [facility] Drop Messages (14 sources) Tobramycin Drug Allergy Rash [facility] Drop Messages (7 sources) Fenofibrate; Translations: [FENOFIBRATE MICRONIZED] Drug Allergy [facility] Rep[facility] (7 sources) Sulfonamides (Antibiotic); Translations: [SULFA (SULFONAMIDE ANTIBIOTICS)] Propensity to adverse reactions to drug (disorder) Unknown Reaction [facility] (1 source) Baclofen Drug Allergy [facility] (1 source) Fenofibrate Drug Allergy [facility] (1 source) Latex Drug allergy (disorder) [facility] (1 source) levoFLOXacin Drug Allergy [facility] (1 source) Penicillins Drug allergy (disorder) [facility] (13 sources) Baclofen Drug Allergy [...] to adverse reactions to drug (disorder) 006 [facility] Repository Medications Current Medications Medication [...] Atherosclerosis of coronary artery bypass graft of [place] heart without angina pectoris , History of [...] daily. 0 Active take 1 tablet by [facility] every twelve hours Calcium 600 MG 1 [...] Active Start: 11-01-2022 take 4 tablets by [facility] once daily Citalopram 10 mg tablet Active 40 MG PO Daily November 01, 2022 12:00am Start: 11-01-2022 take 10 mg by mouth once daily Citalopram Active 10 MG PO Daily November 01, 2022 1:00am End: 08-13-2024 citalopram (CeleXA) 20 MG ta blet Take 20 mg by mouth Active take 2 tablets by [facility] once daily citalopram (CELEXA) 10 MG tablet Take 2 tablets by mouth daily 0 Active clopidogrel 75 mg oral tablet (11 sources) P2Y12 Platelet Inhibitor Start: 09-05-2024 End: 09-05-2025 take 1 tablet by mouth once daily clopidogrel (Plavix) 75 mg tablet Indications: Atherosclerosis of coronary artery bypass graft of [place] heart without angina pectoris , S/P PTCA [...] mouth two times weekly Vitamin D (Ergocalciferol) 23217 UNIT 1 capsule Orally TWICE a Week [...] 3 weeks, then 3x per week thereafter, [id number], 160, cm, 04/10/24 15:13:00 EDT, Height/Length Dosing, [...] Start: 04-30-2020 fluticasone 0. 05 mg/inh Nasal [place] Refill(s) 0 Start Date: 04/30/20 Status: Ordered Start: 10-24-2017 End: 02-29-2024 take 2 spray(s) nasal route once daily fluticasone (FLONASE) 50 mcg/actuation nasal spray Indications: Chronic pansinusitis Administer 2 sprays into each nostril daily. 16 g 11 10/24/2017 02/29/2024 Discontinued (Duplicate Listing) fluticasone 0.05 mg/inh Nasal [place] (3 sources) Start: 04-30-2020 fluticasone 0.05 mg/inh Nasal [place] Refill(s) 0 Start Date: 04/30/20 Status: Ordered [...] Refills(s) 11, Pharmacy: [facility] #[id number], 160, cm, 04/10/24 15:13:00 EDT, Height/Length Dosing, [...] 2 PO) Take by mouth 0 Active uvbhoagt-sajd-RB-arley cium &mins (THERAGRAN-M) 9 mg iron-400 mcg tablet (3 sources) orhfbyql-ebgp-AJ - calcium &mins (THERAGRAN-M) 9 mg iron-400 [...] mouth 2 times a day. 0 Active Fpryugbvntck-Wpy-Kfjx-Fa-Vit K (Bariatric Multivitamins) 45 mg iron- 800 mcg-120 mcg Capsule (4 sources) Start: 11-01-2022 take 1 capsule by mouth twice daily Xyjypueynvgt-Vtu-Inrl-Fa-Vit K (Bariatric Multivitamins) 45 mg iron- 800 mcg-120 mcg Capsule Active 1 CAP PO Twice daily November 01, 2022 1:00am Start: 11-01-2022 take 1 capsule by [facility] twice daily Gddvmwxdmxlq-Jpn-Opze-Fa-Vit K (Bariatri c Multivitamins) 45 mg iron- [...] tablet Indications: Atherosclerosis of coronary artery of [place] heart without angina pectoris, unspecified vessel or [...] powder 04/19/2018 Active omega-3 acid ethyl esters (fpc) 1000 mg oral capsule (3 sources) take [...] April 21, 2018 11:01pm polyethylene glycol 3350 715067 mg / potassium chloride 2970 mg / sodium bicarbonate 6740 mg / sodium chloride 5860 mg / sodium sulfate 04833 mg powder for oral solution (3 sources) [...] mouth 3 times a day. Active sod xwonc-xujjsy-ddwdlb bottle (NEILMED SINUS RINSE COMPLETE) packet with rinse device nasal solution (3 sources) Start: 09-13-2017 take 1 dose nasal route once daily sod rvqwx-yscezu-skdaty bottle (NEILMED SINUS RINSE COMPLETE) packet with [...] Ordered Start: 04-17-2018 take 1 capsule by [facility] once daily tamsulosin (Flomax) 0.4 [...] Refills(s) 11, Pharmacy: [facility] #[id number], 160, cm, 04/10/24 15:13:00 EDT, Height/Length Dosing, 74, kg, 04/10/24 15:13:00 EDT, Weight Dosing Start Date: 04/10/24 Stop Date: 04/05/25 Status: Ordered vit C,L-Dv-cnqsw-lutein-zeaxan (PRESERVISION AREDS-2) 250-90-40-1 mg capsule (1 source) vit C,G-Rt-qqeuy-lutein-z eaxan (PRESERVISION AREDS-2) 250-90-40-1 mg capsule Take [...] a day for 30 day(s) Active vitamins A,C,B-rhse-obuyxw (1 source) Start: 08-19-2024 vitamins A,C,Z-rvuh-cnxjrj Active PO August 19, 2024 12:00am Zyrtec [...] ascorbic acid 226 mg / beta carotene 23017 unt / cuprous oxide 0.8 mg / [...] / neomycin 3.5 mg/ml / polymyxin b 46610 unt/ml ophthalmic suspension (3 sources) Aminoglycoside Antibacterial, Polymyxin-class Antibacterial, Corticosteroid Start: 06-13-2021 take 2 drop(s) into the eye(s) four times daily Neomycin-Polymyxin- HC 3.5-33901-7 Ophthalmic Suspension instill 2 drops INTO AFFECTED [...] sources) Coronary atherosclerosis; Translations: [Coronary atherosclerosis of [place] coronary artery] Onset: 2 Chronic Coronary atherosclerosis [...] 4 08-18-2024 Episodic Other aftercare (1 source) USP (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; Translations: [MOLECULAR PHYSICIST CURRENT USE OF ASPIRIN] Onset: 3 Episodic Other aftercare (1 source) Other prison (current) drug therapy; Translations: [OTH MOLECULAR PHYSICIST CURRENT DRUG THERAPY] Onset: 3 Episodic Other [...] Unclassified (1 source) Athscl heart disease of [place] coronary artery w/o ang pctrs / I25.10(ICD-9) [...] Comment: MRI R T wrist w/o at [facility]. Orbits if needed. Please contact patient to schedule Orders Onlyon 05-19-2025 Orders Only [id number] Diana Saleem ttrene 1965 F Date Provider Department Center 05/19/2025 [id number] WATSON [facility] Family History Problem Relation Age of Onset Hyperlipidemia Mother Hyperlipidemia Father Hyperlipidemia Brother Heart attack Brother Family Status - Relation Status Age at Mother Father Brother Brother Normal [facility] Telephoneon 05-19-2025 Telephone [id number] Diana Saleem ttrene 1965 F Date Provider Department Center 05/19/2025 GISELA OMER [facility] Family History Problem Relation Age of Onset Hyperlipidemia Mother Hyperlipidemia Father Hyperlipidemia Brother Heart attack Brother Family Status - Relation Status Age at Mother Father Brother Brother Normal [facility] XR Wrist - right 2 [...] process Right Wrist with minimal degenerative changes. [facility] Radiology Study observation (narrative) [facility] 36on 05-14-2025 36 Machine Heddle Cleaner spoke with Justo kang the pharmacy intake technician and clarify some information and that is what was needed so hopefully soon be able to get soon. Normal [facility] Telephoneon 05-14-2025 Telephone [id number] Diana Saleem 1965 F Date Provider Department Center 05/14/2025 [id number]-RXIUATANALISA WATSON [facility] Family History Problem Relation Age of Onset Hyperlipidemia Mother Hyperlipidemia Father Hyperlipidemia Brother Heart attack Brother Family Status - Relation Status Age at Mother Father Brother Brother [facility] Telephone [id number] SaleemDiana orozco tte 1965 [facility] Department Clive 05/14/2025 GISELA OMER [facility] Family History Problem Relation Age of Onset Hyperlipidemia Mother Hyperlipidemia Father Hyperlipidemia Brother Heart attack Brother Family Status - Relation Status Age at Mother Father Brother Brother [facility] 29on 05-08-2025 29 Addended by: ANALISA TAYLOR on: 05/14/2025 03:06 PM Modules accepted: [facility] 29 Addended by: ANALISA TAYLOR on: 05/12/2025 05:18 PM Modules accepted: [facility] Follow-Upon 05-08-2025 Follow-Up [id number] SaleemDiana ttrene 1965 [facility] 05/08/2025 CHAUNCEY CESPEDES [facility] Family History Problem Relation Age of Onset Hyperlipidemia Mother Hyperlipidemia Father Hyperlipidemia Brother Heart attack Brother Family Status - Relation Status Age at Mother Father Brother Brother Level of Service:79493 HI OFFICE/OUTPATIENT ESTABLISHED MOD MDM 30 MIN () Reason for Visit and Comments: Follow-up [295743] [facility] 36on 03-25-2025 36 I called the [...] clinic scheduling team were notified and Dr. Kimbel is aware of the plan. [facility] Telephoneon 03-25-2025 Telephone [id number] SaleemDiana ttrnee 1965 Date Provider Department Center 03/25/2025 [id number]-SANDRA MARTIN [facility] Family History Problem Relation Age of Onset Hyperlipidemia Mother Hyperlipidemia Father Hyperlipidemia Brother Heart attack Brother Family Status - Relation Status Age at Mother Father Brother Brother [facility] 36on 03-20-2025 36 03/25/25@1020 Left pa [...] should she follow up in the clinic. [facility] Telephoneon 03-20-2025 Telephone [id number] Diana Saleem 1965 Provider Department Center 03/20/2025 GISELA OMER [facility] Family History Problem Relation Age of Onset Hyperlipidemia Mother Hyperlipidemia Father Hyperlipidemia Brother Heart attack Brother Family Status - Relation Status Age at Mother Father Brother Brother [facility] 02-18-2025 36 Called and discussed with jay pt the HIDA and MRCP in details. ----- Message from Gisela sent at 02/11/2025 3:15 PM EDT ----- Patient calling for results and follow up plan. Office visit with you and Dr. Kimble 01/09/25 [facility] 36 ----- Message from Gisela sent at 02/11/2025 3:15 PM EDT ----- Patient calling for results and follow up plan. Office visit with you and Dr. Kimble 01/09/25 [facility] Telephoneon 02-18-2025 Telephone [id number] Diana Saleem ttrene 1965 F Date Provider Department Center 02/18/2025 385SANDRA BETHEA [facility] Family History Problem Relation Age of Onset Hyperlipidemia Mother Hyperlipidemia Father Hyperlipidemia Brother Heart attack Brother Family Status - Relation Status Age at Mother Father Brother Brother Normal [facility] 36on 02-11-2025 36 Patient called me to get results of HIDA scan and then what to do as follow up. I do see the HIDA scan results from 01/30/25 @ [facility] and they are normal will forward to Dr. Martin on of our [facility] [place] to see what further he would like to do. Normal [facility] Telephoneon 02-11-2025 Telephone [id number] Diana Saleem tte 1965 Date Provider Department Center 02/11/2025 396GISELA ROCHA [facility] Family History Problem Relation Age of Onset Hyperlipidemia Mother Hyperlipidemia Father Hyperlipidemia Brother Heart attack Brother Family Status - Relation Status Age at Mother Father Brother Brother Normal [facility] NM HIDA W EJECTION FRACTIONo [...] Prado M.D.. Not Vldtd Invalid Interpretation Code [facility] Elastase.pancreatic (Stl) [M ass/Mass]on 01-17-2025 Pancreatic Elastase, F 174 mcg/g Low >200 (Normal) [facility] Comment on above: Result Comment: NOTE Interpretation: Borderline (100-200 mcg/g); Consistent with slight to moderate pancreatic insufficiency Test Performed by: [facility] - [address] [address] Brush Holder Inspector: Andra Flores Ph.D.; CLIA# [id number] Performed By: #### 2 5907-7 #### [facility] ([id number]) [address] [place] [address], [place] [address] 29on 01-09-2025 29 Addended by: CHAUNCEY KIMBLE on: 01/10/2025 08:32 AM Modules accepted: Level of Service [facility] Follow-Upon 01-09-2025 Follow-Up [id number] Diana Saleem tte 1965 F Date Provider Department Center 01/09/2025 375-CHAUNCEY KIMBLE [facility] Family History Problem Relation Age of Onset Hyperlipidemia Mother Hyperlipidemia Father Hyperlipidemia Brother Heart attack Brother Family Status - Relation Status Age at Mother Father Brother Brother Level of Service:10477 HI OFFICE/OUTPATIENT ESTABLISHED MOD MDM 30 MIN () Reason for Visit and Comments: Follow-up [280344] - MRI follow up and seen at [facility] and in hospital for 1 day. Will get records. Enzo helped tremendously this time and she came home with it, She just complains of fatigue. PCP Ordered sleep study [facility] 36on 01-02-2025 36 01/02/25@3750 Returned a phone call to patient. She had wanted to follow up with Dr. Chauncey Kimble to let him know she is currently in the ER at [facility] dx with pancreatitis. She had an MRCP on 12/31/24 and if any other lab work needs done to call the Hospital. Normal [facility] Telephoneon 01-02-2025 Telephone [id number] Diana Saleem ttrene 1965 Date Provider Department Center 01/02/2025 GISELA OMER [facility] Family History Problem Relation Age of Onset Hyperlipidemia Mother Hyperlipidemia Father Hyperlipidemia Brother Heart attack Brother Family Status - Relation Status Age at Mother Father Brother Brother [facility] MR ABDOMEN W AND WO [...] Landeros MD. Not Vldtd Invalid Interpretation Code [facility] Follow-Upon 12-12-2024 Follow-Up [id number] Diana Saleem ttrene 1965 F Date Provider Department Center 12/12/2024 CHAUNCEY CESPEDES [facility] Family History Problem Relation Age of Onset Hyperlipidemia Mother Hyperlipidemia Father Hyperlipidemia Brother Heart attack Brother Family Status - Relation Status Age at Mother Father Brother Brother Level of Service:95757 HI OFFICE/OUTPATIENT NEW MODERATE MDM 45 MINUTES (GC) Reason for Visit and Comments: Pancreatitis [576430] - Pain when she stresses or when she eats. She has trouble with losing weight as she always feels bloated and gassy. Normal [facility] XR Wrist - right 2 [...] acute bony process Right Wrist [facility] Radiology Study observation (narrative) [facility] XR FOREARM RT 2 VWSon 2024 XR FOREARM RT 2 VWS XR FOREARM RT 2 VWS CLINICAL INFORMATION: Right arm pain TECHNIQUE: XR FOREARM RT 2 VWS 2 views right forearm are obtained. There is no acute osseous, articular, or soft tissue abnormality. IMPRESSION: Negative exam. Finalized by Afshin Barrett MD on 10/11/2024 1:59 PM Normal [facility] ECG 12 lead ECGon 08-22-2024 ECG 12 lead ECG [facility] [place] [address] [place] [address] Electrocardiograph Report Signed Patient: Jose Alberto Saleem MR#: [id number] : 1965 Acct:[id number] Age/Sex: 59 / F ADM Date: 08/20/24 Loc: Room: [address] [place] [address] Type: DIS IN Attending Dr: Kaiser Quijano [...] abnormality Abnormal ECG Confirmed by Bella Stein ([id number]) on 08/22/2024 11:33:07 PM Referred By: Bella Stein Electronically Signed By: Bella Stein Transcribed By: MUS Signed By Bella Stein MD 4 2333 Normal [facility] Troponin I High Sensitivityo n 08-22-2024 Troponin I High Sensitivity 1211.6 pg/mL Off scale high 0.0-15.0 [facility] Comment on above: Result Comment: Crit ical Result : Called to and read back by: ROB MCDONALD at: 08/22/2024 06:38:37 by:RAMONA PERFORMED BY: [place] [address] PATHOLOGIST JOINT CLEANING MACHINE OPERATOR JANA OLMEDO M.D. Performed By: #### H S TROP ####[facility] [id number] [place] [address] [facility] Blood Urea Nitrogenon 2023 Urea nitrogen [Mass/Vol] 14 mg/dL Normal 7-25 [facility] Comment on above: Performed By: #### C REAT, BUN, PP, CBC, LYTES ####[place] [address] [place] [address] [facility] Coagulation Profileon 2023 aPTT Coag (Bld) [Time] 35.9 s Normal 25.1-36.5 [facility] Comment on above: Result Comment: A he matocrit value greater than 55% may lead to inaccurate results in coagulation testing. Patients having hematocrit values >55% require a special collection tube for coagulation studies. Please contact the laboratory at [phone] for redraw instructions. PERFORMED BY: [address] [place] [id number] PATHOLOGIST JOINT CLEANING MACHINE OPERATOR JANA OLMEDO M.D. Performed By: #### C REAT, BUN, PP, CBC, LYTES ####[place] [id number] [facility] INR Coag (PPP) [Relative time] 1.1 {INR} Normal [facility] [...] #### C REAT, BUN, PP, CBC, LYTES ####[place] [id number] [facility] PT Coag (PPP) [Time] 12.2 s Normal 9.0-12.9 [facility] Comment on above: Result Comment: A he matocrit value greater than 55% may lead to inaccurate results in coagulation testing. Patients having hematocrit values >55% require a special collection tube for coagulation studies. Please contact the laboratory at [phone] for redraw instructions. Performed By: #### C REAT, BUN, PP, CBC, LYTES ####[address] Complete Blood Count Auto Di ffon 08-21-2024 Basophils (Bld) [#/Vol] 0.0 10*3/uL Normal 0.0-0.2 [facility] Comment on above: Result Comment: PERF ORMED BY: [facility] [address] [place] [address] PATHOLOGIST JOINT CLEANING MACHINE OPERATOR JANA OLMEDO M.D. Performed By: #### C REAT, BUN, PP, CBC, LYTES ####[address] Basophils/100 WBC (Bld) 0.3 % Normal . [facility] Comment on above: Performed By: #### C REAT, BUN, PP, CBC, LYTES ####[address] Eosinophils (Bld) [#/Vol] 0.2 10*3/uL Normal 0.0-0.45 [facility] Comment on above: Performed By: #### C REAT, BUN, PP, CBC, LYTES ####[address] Eosinophils/100 WBC (Bld) 3.9 % Normal . [facility] Comment on above: Performed By: #### C REAT, BUN, PP, CBC, LYTES ####[address] Erythrocyte distribution width (RBC) [Ratio] 12.7 % Normal 11.9-15.3 [facility] Comment on above: Performed By: #### C REAT, BUN, PP, CBC, LYTES ####[address] Hematocrit (Bld) [Volume fraction] 42.5 % Normal 34.0-46.4 [facility] Comment on above: Performed By: #### C REAT, BUN, PP, CBC, LYTES ####[address] Hemoglobin (Bld) [Mass/Vol] 14.6 g/dL Normal 11.8-15.4 [facility] [facility] Comment on above: Performed By: #### C REAT, BUN, PP, CBC, LYTES ####[address] Lymphocytes (Bld) [#/Vol] 1.7 10*3/uL Normal 1.00-4.8 [facility] Comment on above: Performed By: #### C REAT, BUN, PP, CBC, LYTES ####[address] Lymphocytes/100 WBC (Bld) 35.0 % Normal . [facility] Comment on above: Performed By: #### C REAT, BUN, PP, CBC, LYTES ####[address] MCH (RBC) [Entitic mass] 30.8 pg Normal 24.7-34.3 [facility] Comment on above: Performed By: #### C REAT, BUN, PP, CBC, LYTES ####[address] MCV (RBC) [Entitic vol] 89.8 fL Normal 80-100 [facility] Comment on above: Performed By: #### C REAT, BUN, PP, CBC, LYTES ####[address] Mean Corpuscular HGB Conc 34.3 g/dL Normal 32.0-35.0 [facility] Comment on above: Performed By: #### C REAT, BUN, PP, CBC, LYTES ####[address] Monocytes (Bld) [#/Vol] 0.5 10*3/uL Normal 0.0-0.8 [facility] Comment on above: Performed By: #### C REAT, BUN, PP, CBC, LYTES ####[address] Monocytes/100 WBC (Bld) 10.9 % Normal . [facility] Comment on above: Performed By: #### C REAT, BUN, PP, CBC, LYTES ####[address] Neutrophils (Bld) [#/Vol] 2.5 10*3/uL Normal 1.8-7.7 [facility] Comment on above: Performed By: #### C REAT, BUN, PP, CBC, LYTES ####[address] Neutrophils/100 WBC (Bld) 49.9 % Normal . [facility] Comment on above: Performed By: #### C REAT, BUN, PP, CBC, LYTES ####[address] NRBC% 0.1 /100{WBC} Normal 0-0.[address] [facility] Comment on above: Performed By: #### C REAT, BUN, PP, CBC, LYTES ####[address] Platelet mean volume (Bld) [Entitic vol] 7.7 fL Normal 6.3-10.7 The [facility] Comment on above: Performed By: #### C REAT, BUN, PP, CBC, LYTES ####[address] Platelets (Bld) [#/Vol] 172 10*3/uL Normal 150-450 [facility] Comment on above: Performed By: #### C REAT, BUN, PP, CBC, LYTES ####[address] RBC (Bld) [#/Vol] 4.73 10*6/uL Normal 3.60-5.00 The [facility] Comment on above: Performed By: #### C REAT, BUN, PP, CBC, LYTES ####[place] [address] [place] [id number] [facility] WBC (Bld) [#/Vol] 4.9 10*3/uL Normal 3.8-11.6 The [facility] Comment on above: Performed By: #### C REAT, BUN, PP, CBC, LYTES ####[place] [address] [place] [address] [facility] Creatinineon 08-21-2024 Creatinine [Mass/Vol] 0.61 mg/dL Normal 0.60-1.20 [facility] Comment on above: Performed By: #### C REAT, BUN, PP, CBC, LYTES ####[place] [id number] [facility] Creatinine Clr Calc Pharmacy 97.73 Normal [facility] Comment on above: Result Comment: PERF ORMED BY: [place] [address] PATHOLOGIST JOINT CLEANING MACHINE OPERATOR JANA OLMEDO M.D. Performed By: #### C REAT, BUN, PP, CBC, LYTES ####[place] [id number] [facility] GFR/1.73 sq M.predicted MDRD (S/P/Bld) [Vol rate/Area] mL/min/{1.73_m2} Normal [facility] Comment on above: Performed By: #### C REAT, BUN, PP, CBC, LYTES ####[place] [id number] [facility] ECG 12 lead ECGon 08-21-2024 ECG 12 lead ECG [facility] Main [place] [address] [place] [address] Electrocardiograph Report Signed Patient: Jose Alberto Saleem MR#: [id number] : 1965 Acct:[id number] Age/Sex: 59 / F ADM Date: 08/20/24 Loc: Room: [address] [place] [address] Type: DIS IN Attending Dr: Kaiser Quijano [...] abnormality Abnormal ECG Confirmed by Bella Stein ([id number]) on 08/22/2024 11:33:52 PM Referred By: Bella Stein Electronically Signed By: Bella Stein Transcribed By: [facility] Signed By Bella Stein MD 4 2333 Normal [facility] Electrolyteson 08-21-2024 Anion gap [Moles/Vol] 11.0 mmol/L Normal 6.0-15.0 Th e [facility] Comment on above: Performed By: #### C REAT, BUN, PP, CBC, LYTES ####[address] Chloride [Moles/Vol] 105 mmol/L Normal 98-107 [facility] Comment on above: Performed By: #### C REAT, BUN, PP, CBC, LYTES ####[address] CO2 [Moles/Vol] 27.9 mmol/L Normal 21.0-31.0 The [facility] Comment on above: Performed By: #### C REAT, BUN, PP, CBC, LYTES ####[address] Potassium [Moles/Vol] 3.9 mmol/L Normal 3.5-5.1 [facility] Comment on above: Performed By: #### C REAT, BUN, PP, CBC, LYTES ####[address] Sodium [Moles/Vol] 140 mmol/L Normal 136-145 The [facility] Comment on above: Performed By: #### C REAT, BUN, PP, CBC, LYTES ####[facility] [place] [address] [facility] NM lia perf SPECT rest stron 08-20-2024 NM lia perf SPECT rest str [facility] Main [place] [id number] Nuclear Medicine Report Signed Patient: Jose Alberto Saleem MR#: [id number] : 1965 Acct:[id number] Age/Sex: 59 / F ADM Date: 08/18/24 Loc: Room: [address] [place] [address] Type: ADM INOo Attending Dr: Chucky Dunn [...] Bella Stein M.D.08/20/2024 3:56 PM Dictation Location: [place] [address] Transcribed By: [facility] [place] 08/20/24 1555 Dictated By: Bella Stein MD 08/20/24 1552 Signed By: 08/20/24 1556 Normal [facility] A1C with Estimated Average G rebekahlio 08-19-2024 Glucose [Mass/Vol] 117 mg/dL Normal [facility] Comment on above: Result Comment: PERF ORMED BY: [address] [address] PATHOLOGIST JOINT CLEANING MACHINE OPERATOR JANA OLMEDO M.D. Performed By: #### A 1C [facility] eA, TROP ####[facility] [place] [address] [facility] HbA1c (Bld) [Mass fraction] 5.7 % High 4.3-5.6 [facility] Comment on above: Result Comment: Incr eased risk for diabetes: 5.7 - 6.4 diabetes: >6.4 glycemic control for adults with diabetes: <7.0 Performed By: #### A 1C [facility] eA, HS TROP ####[facility] [address] [place] [address] [facility] ECG 12 lead ECGon 08-19-2024 ECG 12 [place] [address] Electrocardiograph Report Signed Patient: Jose Alberto Saleem MR#: [id number] 571 : 1965 Acct:[id number] Age/Sex: 59 / F ADM Date: 08/18/24 Loc: Room: [address] [place] [address] Type: ADM INOo Attending Dr: Chucky Dunn [...] wave abnormality Abnormal ECG Confirmed by Bella Setin ([id number]) on 08/21/2024 12:00:39 AM Referred By: Bella Stein Electronically Signed By: Bella Stein Transcribed By: MUS Signed By Bella Stein MD 4 0000 Normal [facility] ECG 12 lead ECG [facility] [place] [address] Electrocardiograph Report Signed Patient: Jose Alberto Saleem MR#: [id number] : 1965 Acct:[id number] Age/Sex: 59 / F ADM Date: 08/18/24 Loc: 3T Room: [address] [place] [address] Type: ADM INOo Attending Dr: Chucky Dunn [...] rhythm Leftward axis Confirmed by Bridgett Monreal ([id number]) on 08/20/2024 11:52:24 PM Referred By: Bella Stein Electronically Signed By: Bridgett Monreal Transcribed By: MUS Signed By Bridgett Monreal MD 08/20/24 2352 Normal [facility] Troponin I High Sensitivityo n 08-19-2024 Troponin I High Sensitivity 4.6 pg/mL Normal 0.0-15.0 [facility] Comment on above: Result Comment: PERF ORMED BY: [place] [address] PATHOLOGIST JOINT CLEANING MACHINE OPERATOR JANA OLMEDO M.D. Performed By: #### A 1C [facility], [facility] ####[place] [id number] [facility] X-ray reportOrdered By: Anna Wick on 08-19-2024 [place] [address] XRay Report Signed Patient: Jose Alberto Saleem MR#: [id number] : 1965 Acct:[id number] Age/Sex: 59 / F ADM Date: 4 Loc: 3T Room: [address] [place] [address] Type: ADM INOo Attending Dr: Donis Arroyo [...] Thelma Wick M.D.08/19/2024 12:10 AM Dictation Location: [place] [address] Transcribed By: [facility] [place] 08/19/249 Dictated By: Thelma Wick MD 08/18/242210 Signed By: 08/19/249 [facility] Work Phone: Alanine aminotransferase [En zymatic activity/volume] in Serum or PlasmaOrdered By: Lynnette Chapman on 08-18-2024 ALT [Catalytic activity/Vol] Alanine aminotransferase [Enzymatic activity/volume] in Serum or Plasma 7-52 [facility] Albumin [Mass/volume] in Ser um or Plasma by Bromocresol green (BCG) dye binding methoOrdered By: Lynnette Chapman on 08-18-2024 Albumin BCG dye [Mass/Vol] Albumin [Mass/volume] in Serum or Plasma by Bromocresol green (BCG) dye binding metho 3.5-5.7 [facility] Alkaline phosphatase [Enzyma tic activity/volume] in Serum or PlasmaOrdered By: Lynnette Chapman on 08-18-2024 ALP [Catalytic activity/Vol] Alkaline phosphatase [Enzymatic activity/volume] in Serum or Plasma 34-104 [facility] Aspartate aminotransferase [ Enzymatic activity/volume] in Serum or PlasmaOrdered By: Lynnetet Chapman on 08-18-2024 AST [Catalytic activity/Vol] Aspartate aminotransferase [Enzymatic activity/volume] in Serum or Plasma 13-39 [facility] B-Type Natriuretic Peptideon 08-18-2024 Natriuretic peptide B (Bld) [Mass/Vol] 31.0 pg/mL Normal 5-100 [facility] Comment on above: Result Comment: PERF ORMED BY: [place] [address] PATHOLOGIST JOINT CLEANING MACHINE OPERATOR JANA OLMEDO M.D. Performed By: #### H S TROP, LIPASE, PT, BMP, HEPATIC, CK, CBC, BNP ####[address] Basic Metabolic Panelon 08-01 Anion gap [Moles/Vol] 10.7 mmol/L Normal 6.0-15.0 [facility] Comment on above: Performed By: #### H S TROP, LIPASE, PT, BMP, HEPATIC, CK, CBC, BNP #### [address] Performed By: #### H S TROP, LIPASE, PT, BMP, HEPATIC, CK, CBC, BNP ####[address] Calcium [Mass/Vol] 10.1 mg/dL Normal 8.6-10.3 [facility] Comment on above: Performed By: #### H S TROP, LIPASE, PT, BMP, HEPATIC, CK, CBC, BNP #### [address] Performed By: #### H S TROP, LIPASE, PT, BMP, HEPATIC, CK, CBC, BNP ####[address] Chloride [Moles/Vol] 102 mmol/L Normal 98-107 [facility] Comment on above: Performed By: #### H S TROP, LIPASE, PT, BMP, HEPATIC, CK, CBC, BNP #### [address] Performed By: #### H S TROP, LIPASE, PT, BMP, HEPATIC, CK, CBC, BNP ####[address] [address] [place] CO2 [Moles/Vol] 28.4 mmol/L Normal 21.0-31.0 The [facility] Comment on above: Performed By: #### H S TROP, LIPASE, PT, BMP, HEPATIC, CK, CBC, BNP #### [address] Performed By: #### H S TROP, LIPASE, PT, BMP, HEPATIC, CK, CBC, BNP ####[address] Creatinine [Mass/Vol] 0.62 mg/dL Normal 0.60-1.20 [facility] Comment on above: Performed By: #### H S TROP, LIPASE, PT, BMP, HEPATIC, CK, CBC, BNP #### [address] Performed By: #### H S TROP, LIPASE, PT, BMP, HEPATIC, CK, CBC, BNP ####[address] Creatinine Clr Calc Pharmacy 95.72 Normal [facility] Comment on above: Result Comment: PERF ORMED BY: [place] [address] PATHOLOGIST JOINT CLEANING MACHINE OPERATOR JANA OLMEDO M.D. Performed By: #### H S TROP, LIPASE, PT, BMP, HEPATIC, CK, CBC, BNP #### [address] Performed By: #### H S TROP, LIPASE, PT, BMP, HEPATIC, CK, CBC, BNP ####[address] GFR/1.73 sq M.predicted MDRD (S/P/Bld) [Vol rate/Area] mL/min/{1.73_m2} Normal [facility] Comment on above: Performed By: #### H S TROP, LIPASE, PT, BMP, HEPATIC, CK, CBC, BNP #### [facility] [address] [place] [address] [place] Performed By: #### H S TROP, LIPASE, PT, BMP, HEPATIC, CK, CBC, BNP ####[address] Glucose [Mass/Vol] 94 mg/dL Normal 70-100 [facility] Comment on above: Result Comment: [facility] Glucose Reference Range is dependent on time and content of last meal. Glucose of more than 200 mg/dL in a nonstressed, ambulatory subject supports the diagnosis of Diabetes Mellitus. ADA recommended reference range Performed By: #### H S TROP, LIPASE, PT, BMP, HEPATIC, CK, CBC, BNP #### [address] Performed By: #### H S TROP, LIPASE, PT, BMP, HEPATIC, CK, CBC, BNP ####[address] Potassium [Moles/Vol] 4.1 mmol/L Normal 3.5-5.1 [facility] Comment on above: Performed By: #### H S TROP, LIPASE, PT, BMP, HEPATIC, CK, CBC, BNP #### [address] Performed By: #### H S TROP, LIPASE, PT, BMP, HEPATIC, CK, CBC, BNP ####[address] Sodium [Moles/Vol] 137 mmol/L Normal 136-145 [facility] Comment on above: Performed By: #### H S TROP, LIPASE, PT, BMP, HEPATIC, CK, CBC, BNP #### [address] Performed By: #### H S TROP, LIPASE, PT, BMP, HEPATIC, CK, CBC, BNP ####[address] Urea nitrogen [Mass/Vol] 22 mg/dL Normal 7-25 [facility] Comment on above: Performed By: #### H S TROP, LIPASE, PT, BMP, HEPATIC, CK, CBC, BNP #### [address] [place] [address] [place] Performed By: #### H S TROP, LIPASE, PT, BMP, HEPATIC, CK, CBC, BNP ####[facility] [id number] Basophils Auto (Bld) [#/Vol] Ordered By: Lynnette Chapman on 08-18-2024 Basophils (Bld) [#/Vol] Automated basophil count 0.0-0.2 [facility] Basophils/100 WBC Auto (Bld) Ordered By: Lynnette Chapman on 08-18-2024 Basophils/100 WBC (Bld) Automated basophil % . [facility] Bilirubin.direct [Mass/volum e] in Serum or PlasmaOrdered By: Lynnette Chapman on 08-18-2024 Bilirubin.direct [Mass/Vol] Bilirubin.direct [Mass/volume] in Serum or Plasma 0.03-0.18 [facility] Bilirubin.total [Mass/volume ] in Serum or PlasmaOrdered By: Lynnette Chapman on 08-18-2024 Bilirubin [Mass/Vol] Bilirubin.total [Mass/volume] in Serum or Plasma 0.3-1.0 [facility] Calcium [Mass/volume] in Ser um or PlasmaOrdered By: Lynnette Chapman on 08-18-2024 Calcium [Mass/Vol] Calcium [Mass/volume ] in Serum or Plasma 8.6-10.3 [facility] Carbon dioxide, total [Moles /volume] in Serum or PlasmaOrdered By: Lynnette Chapman on 08-18-2024 CO2 [Moles/Vol] Carbon dioxide, tota l [Moles/volume] in Serum or Plasma 21.0-31.0 [facility] Chloride [Moles/volume] in S nina or PlasmaOrdered By: Lynnette Chapman on 08-18-2024 Chloride [Moles/Vol] Chloride [Moles/vol ume] in Serum or Plasma 98-107 [facility] Complete Blood Count Auto Di ffon 08-18-2024 Basophils (Bld) [#/Vol] 0.0 10*3/uL Normal 0.0-0.2 [facility] Comment on above: Result Comment: PERF ORMED BY: [facility] [address] [place] [address] PATHOLOGIST JOINT CLEANING MACHINE OPERATOR JANA OLMEDO M.D. Performed By: #### H S TROP, LIPASE, PT, BMP, HEPATIC, CK, CBC, BNP #### [address] Basophils/100 WBC (Bld) 0.7 % Normal . [facility] Comment on above: Performed By: #### H S TROP, LIPASE, PT, BMP, HEPATIC, CK, CBC, BNP #### [address] Eosinophils (Bld) [#/Vol] 0.2 10*3/uL Normal 0.0-0.45 [facility] Comment on above: Performed By: #### H S TROP, LIPASE, PT, BMP, HEPATIC, CK, CBC, BNP #### [address] Eosinophils/100 WBC (Bld) 3.5 % Normal . [facility] Comment on above: Performed By: #### H S TROP, LIPASE, PT, BMP, HEPATIC, CK, CBC, BNP #### [address] Erythrocyte distribution width (RBC) [Ratio] 12.6 % Normal 11.9-15.3 [facility] Comment on above: Performed By: #### H S TROP, LIPASE, PT, BMP, HEPATIC, CK, CBC, BNP #### [address] Hematocrit (Bld) [Volume fraction] 43.7 % Normal 34.0-46.4 [facility] Comment on above: Performed By: #### H S TROP, LIPASE, PT, BMP, HEPATIC, CK, CBC, BNP #### [address] Hemoglobin (Bld) [Mass/Vol] 15.1 g/dL Normal 11.8-15.4 [facility] Comment on above: Performed By: #### H S TROP, LIPASE, PT, BMP, HEPATIC, CK, CBC, BNP #### [address] Lymphocytes (Bld) [#/Vol] 2.2 10*3/uL Normal 1.00-4.8 [facility] Comment on above: Performed By: #### H S TROP, LIPASE, PT, BMP, HEPATIC, CK, CBC, BNP #### [address] Lymphocytes/100 WBC (Bld) 36.5 % Normal . [facility] Comment on above: Performed By: #### H S TROP, LIPASE, PT, BMP, HEPATIC, CK, CBC, BNP #### [address] MCH (RBC) [Entitic mass] 30.7 pg Normal 24.7-34.3 [facility] Comment on above: Performed By: #### H S TROP, LIPASE, PT, BMP, HEPATIC, CK, CBC, BNP #### [address] MCV (RBC) [Entitic vol] 88.8 fL Normal 80-100 [facility] Comment on above: Performed By: #### H S TROP, LIPASE, PT, BMP, HEPATIC, CK, CBC, BNP #### [address] Mean Corpuscular HGB Conc 34.5 g/dL Normal 32.0-35.0 [facility] Comment on above: Performed By: #### H S TROP, LIPASE, PT, BMP, HEPATIC, CK, CBC, BNP #### [address] Monocytes (Bld) [#/Vol] 0.6 10*3/uL Normal 0.0-0.8 [facility] Comment on above: Performed By: #### H S TROP, LIPASE, PT, BMP, HEPATIC, CK, CBC, BNP #### [address] Monocytes/100 WBC (Bld) 16.97 % Normal 0.00-20.00 [facility] Comment on above: Performed By: #### H S TROP, LIPASE, PT, BMP, HEPATIC, CK, CBC, BNP #### [address] Monocytes/100 WBC (Bld) 10.5 % Normal . [facility] Comment on above: Performed By: #### H S TROP, LIPASE, PT, BMP, HEPATIC, CK, CBC, BNP #### [address] Neutrophils (Bld) [#/Vol] 3.0 10*3/uL Normal 1.8-7.7 [facility] Comment on above: Performed By: #### H S TROP, LIPASE, PT, BMP, HEPATIC, CK, CBC, BNP #### [address] Neutrophils/100 WBC (Bld) 48.8 % Normal . [facility] Comment on above: Performed By: #### H S TROP, LIPASE, PT, BMP, HEPATIC, CK, CBC, BNP #### [address] NRBC% 0.1 /100{WBC} Normal 0-0.[address] [facility] Comment on above: Performed By: #### H S TROP, LIPASE, PT, BMP, HEPATIC, CK, CBC, BNP #### [address] Platelet mean volume (Bld) [Entitic vol] 7.9 fL Normal 6.3-10.7 [facility] Comment on above: Performed By: #### H S TROP, LIPASE, PT, BMP, HEPATIC, CK, CBC, BNP #### [address] Platelets (Bld) [#/Vol] 204 10*3/uL Normal 150-450 [facility] Comment on above: Performed By: #### H S TROP, LIPASE, PT, BMP, HEPATIC, CK, CBC, BNP #### [address] RBC (Bld) [#/Vol] 4.92 10*6/uL Normal 3.60-5.00 [facility] Comment on above: Performed By: #### H S TROP, LIPASE, PT, BMP, HEPATIC, CK, CBC, BNP #### [facility] [address] WBC (Bld) [#/Vol] 6.1 10*3/uL Normal 3.8-11.6 [facility] Comment on above: Performed By: #### H S TROP, LIPASE, PT, BMP, HEPATIC, CK, CBC, BNP #### [facility] [address] Creatine Kinaseon 08-18-2024 CK [Catalytic activity/Vol] 53 U/L Normal 30-223 [facility] Comment on above: Performed By: #### H S TROP, LIPASE, PT, BMP, HEPATIC, CK, CBC, BNP ####[facility] Creatine kinase [Enzymatic a ctivity/volume] in Serum or PlasmaOrdered By: Lynnette Chapman on 08-18-2024 CK [Catalytic activity/Vol] Creatine kinase [Enzymatic activity/volume] in Serum or Plasma 30-223 [facility] Creatinine [Mass/volume] in Serum or PlasmaOrdered By: Lynnette Chapman on 08-18-2024 Creatinine [Mass/Vol] Creatinine [Mass/v olume] in Serum or Plasma 0.60-1.20 [facility] ECG 12 lead ECGon 08-18-2024 ECG 12 lead ECG [facility] [place] [address] Electrocardiograph Report Signed Patient: Jose Alberto Saleem MR#: [id number] : 1965 Acct:[id number] Age/Sex: 59 / F ADM Date: 08/18/24 Loc: ER Room: Type: [facility] ER Attending Dr: Ordering Provider: [...] wave abnormality Confirmed by Lynnette Chapman MD ([id number]) on 08/18/2024 11:22:40 PM Referred By: Electronically Signed By: Lynnette Chapman MD Transcribed By: MUS Signed By Lynnette Chapman MD 08/01 05/24 5630 Normal [facility] Eosinophils Auto (Bld) [#/Vo l]Ordered By: Lynnette Chapman on 08-18-2024 Eosinophils (Bld) [#/Vol] Automated eosinophil count 0.0-0.45 [facility] Eosinophils/100 WBC Auto (Bl d)Ordered By: Lynnette Chapman on 08-18-2024 Eosinophils/100 WBC (Bld) Automated eosinophil % . [facility] Erythrocyte distribution wid th Auto (RBC) [Ratio]Ordered By: Lynnette Chapman on 08-18-2024 Erythrocyte distribution width (RBC) [Ratio] Erythrocyte distribution width [Ratio] by Automated count 11.9-15.3 [facility] Globulin Calc (S) [Mass/Vol] Ordered By: Lynnette Chapman on 08-18-2024 Globulin (S) [Mass/Vol] Serum globulin measurement by calculation (mass/volume) [facility] Glucose [Mass/volume] in Ser um or PlasmaOrdered By: Lynnette Chapman on 08-18-2024 Glucose [Mass/Vol] Glucose [Mass/volume ] in Serum or Plasma 70-100 [facility] Comment on above: ADA recommended refe [...] Blood by Automated count 34.0-46.4 [facility] Hemoglobin [Mass/volume] in BloodOrdered By: Lynnette Chapman on 08-18-2024 Hemoglobin (Bld) [Mass/Vol] Hemoglobin [Mass/volume] in Blood 11.8-15.4 [facility] Hepatic Panelon 08-18-2024 Albumin [Mass/Vol] 4.3 g/dL Normal 3.5-5.7 [facility] Comment on above: Performed By: #### H S TROP, LIPASE, PT, BMP, HEPATIC, CK, CBC, BNP ####[address] Albumin/Globulin [Mass ratio] 1.7 {ratio} Normal [facility] Comment on above: Performed By: #### H S TROP, LIPASE, PT, BMP, HEPATIC, CK, CBC, BNP ####[address] ALP [Catalytic activity/Vol] 89 U/L Normal 34-104 [facility] Comment on above: Performed By: #### H S TROP, LIPASE, PT, BMP, HEPATIC, CK, CBC, BNP ####[address] ALT [Catalytic activity/Vol] 42 U/L Normal 7-52 [facility] Comment on above: Performed By: #### H S TROP, LIPASE, PT, BMP, HEPATIC, CK, CBC, BNP ####[address] AST [Catalytic activity/Vol] 31 U/L Normal 13-39 [facility] Comment on above: Performed By: #### H S TROP, LIPASE, PT, BMP, HEPATIC, CK, CBC, BNP ####[address] Bilirubin [Mass/Vol] 0.4 mg/dL Normal 0.3-1.0 [facility] Comment on above: Performed By: #### H S TROP, LIPASE, PT, BMP, HEPATIC, CK, CBC, BNP ####[address] Bilirubin,Indirect 0.3 mg/dL Normal [facility] Comment on above: Performed By: #### H S TROP, LIPASE, PT, BMP, HEPATIC, CK, CBC, BNP ####[address] [place] [address] [facility] Bilirubin.indirect [Mass/Vol] 0.10 mg/dL Normal 0.03-0.18 [facility] Comment on above: Performed By: #### H S TROP, LIPASE, PT, BMP, HEPATIC, CK, CBC, BNP ####[place] [id number] [address] Globulin (S) [Mass/Vol] 2.6 g/dL Normal [facility] Comment on above: Performed By: #### H S TROP, LIPASE, PT, BMP, HEPATIC, CK, CBC, BNP ####[place] [address] [address] Protein [Mass/Vol] 6.9 g/dL Normal 6.4-8.9 [facility] Comment on above: Performed By: #### H S TROP, LIPASE, PT, BMP, HEPATIC, CK, CBC, BNP ####[address] INR in Platelet poor plasma by Coagulation assayOrdered By: Lynnette Chapman on 08-18-2024 INR Coag (PPP) [Relative time] INR in Platelet poor plasma by Coagulation assay [facility] Comment on above: INR Therapeutic Rang [...] Blood by Automated coun 3.8-11.6 [facility] Lipaseon 08-18-2024 Lipase [Catalytic activity/Vol] 110.0 U/L High 11.0-82.0 [facility] Comment on above: Result Comment: PERF ORMED BY: [facility] [address] [place] [id number] PATHOLOGIST JOINT CLEANING MACHINE OPERATOR JANA OLMEDO M.D. Performed By: #### H S TROP, LIPASE, PT, BMP, HEPATIC, CK, CBC, BNP ####[facility] [id number] [place] [id number] [facility] Lipase [Enzymatic activity/v olume] in Serum or PlasmaOrdered By: Lynnette Chapman on 08-18-2024 Lipase [Catalytic activity/Vol] Lipase [Enzymatic activity/volume] in Serum or Plasma High 11.0-82.0 [facility] Lymphocytes Auto (Bld) [#/Vo l]Ordered By: Lynnette Chapman on 08-18-2024 Lymphocytes (Bld) [#/Vol] Lymphocytes [#/volume] in Blood by Automated count 1.00-4.8 [facility] Lymphocytes/100 WBC Auto (Bl d)Ordered By: Lynnette Chapman on 08-18-2024 Lymphocytes/100 WBC (Bld) Lymphocytes/100 leukocytes in Blood by Automated count . [facility] MCH Auto (RBC) [Entitic mass ]Ordered By: Lynnette Chapman on 08-18-2024 MCH (RBC) [Entitic mass] MCH [Entitic mass] by Automated count 24.7-34.3 [facility] MCHC Auto (RBC) [Mass/Vol]Or dered By: Lynnette Chapman on 08-18-2024 MCHC (RBC) [Mass/Vol] MCHC [Mass/volume] by Automated count 32.0-35.0 [facility] MCV Auto (RBC) [Entitic vol] Ordered By: Lynnette Chapman on 08-18-2024 MCV (RBC) [Entitic vol] MCV [Entitic volume] by Automated count 80-100 [facility] Monocyte distribution width [Entitic volume] in Blood by AutomatedOrdered By: Lynnette Chapman on 08-18-2024 Monocyte distribution width Auto (Bld) [Entitic vol] Monocyte distribution width [Entitic volume] in Blood by Automated 0.00-20.00 [facility] Monocytes Auto (Bld) [#/Vol] Ordered By: Lynnette Chapman on 08-18-2024 Monocytes (Bld) [#/Vol] Automated blood monocyte count 0.0-0.8 [facility] Monocytes/100 WBC Auto (Bld) Ordered By: Lynnette Chapman on 08-18-2024 Monocytes/100 WBC (Bld) Automated monocyte % . [facility] Natriuretic peptide B [Mass/ Vol]Ordered By: Lynnette Chapman on 08-18-2024 Natriuretic peptide B (Bld) [Mass/Vol] BNP ser/plas 5-100 [facility] Neutrophils Auto (Bld) [#/Vo l]Ordered By: Lynnette Chapman on 08-18-2024 Neutrophils (Bld) [#/Vol] Neutrophils [#/volume] in Blood by Automated count 1.8-7.7 [facility] Neutrophils/100 WBC Auto (Bl d)Ordered By: Lynnette Chapman on 08-18-2024 Neutrophils/100 WBC (Bld) Automated neutrophil % . [facility] No Panel InformationOrdered By: Lynnette Chapman on 08-18-2024 Estimated GFR (CKD-EPI) > 60.0 mL/Min [facility] Creatinine Clearance (Chem 95.72 [facility] Nucleated erythrocytes [Pres ence] in Blood by Automated countOrdered By: Lynnette Chapman on 08-18-2024 Nucleated RBC Auto Ql (Bld) Nucleated erythrocytes [Presence] in Blood by Automated count 0-0.5 [facility] Platelet mean volume Auto (B ld) [Entitic vol]Ordered By: Lynnette Chapman on 08-18-2024 Platelet mean volume (Bld) [Entitic vol] Platelet mean volume [Entitic volume] in Blood by Automated count 6.3-10.7 [facility] Platelets Auto (Bld) [#/Vol] Ordered By: Lynnette Chapman on 08-18-2024 Platelets (Bld) [#/Vol] Platelets [#/volume] in Blood by Automated count 150-450 [facility] Potassium [Moles/volume] in Serum or PlasmaOrdered By: Lynnette Chapman on 08-18-2024 Potassium [Moles/Vol] Potassium [Moles/v olume] in Serum or Plasma 3.5-5.1 [facility] Protein [Mass/volume] in Ser um or PlasmaOrdered By: Lynnette Chapman on 08-18-2024 Protein [Mass/Vol] Protein [Mass/volume ] in Serum or Plasma 6.4-8.9 [facility] Prothrombin Time INRon 08-18 INR Coag (PPP) [Relative time] 1.0 {INR} Normal [facility] [...] heart valves: 3 - 4.5 PERFORMED BY: [place] [address] PATHOLOGIST JOINT CLEANING MACHINE OPERATOR JANA OLMEDO M.D. Performed By: #### H S TROP, LIPASE, PT, BMP, HEPATIC, CK, CBC, BNP #### [facility] [address] [place] [address] PT Coag (PPP) [Time] 11.7 s Normal 9.0-12.9 [facility] Comment on above: Result Comment: A he matocrit value greater than 55% may lead to inaccurate results in coagulation testing. Patients having hematocrit values >55% require a special collection tube for coagulation studies. Please contact the laboratory at [phone] for redraw instructions. Performed By: #### H S TROP, LIPASE, PT, BMP, HEPATIC, CK, CBC, BNP #### [facility] [address] [place] [address] Prothrombin time (PT)Ordered By: Lynnette Chapman on 08-18-2024 PT Coag (PPP) [Time] Prothrombin time (PT) 9.0- 12.9 [facility] Comment on above: A hematocrit value g reater than 55% may lead to inaccurate results in coagulation testing. Patients having hematocrit values >55% require a special collection tube for coagulation studies. Please contact the laboratory at [phone] for redraw instructions. RBC Auto (Bld) [#/Vol]Ordere d By: Lynnette Chapman on 08-18-2024 RBC (Bld) [#/Vol] Erythrocytes [#/volu me] in Blood by Automated count 3.60-5.00 [facility] Serum or plasma albumin/glob ulin mass ratioOrdered By: Lynnette Chapman on 08-18-2024 Albumin/Globulin [Mass ratio] Serum or plasma albumin/globulin mass ratio [facility] Serum or plasma anion gap de terminationOrdered By: Lynnette Chapman on 08-18-2024 Anion gap [Moles/Vol] Serum or plasma an ion gap determination 6.0-15.0 [facility] Serum or plasma non-glucuron idated bilirubin measurement (mass/volume)Ordered By: Lynnette Chapman on 08-18-2024 Bilirubin.indirect [Mass/Vol] Serum or plasma non-glucuronidated bilirubin measurement (mass/volume) [facility] Sodium [Moles/volume] in Ser um or PlasmaOrdered By: Lynnette Chapman on 08-18-2024 Sodium [Moles/Vol] Sodium [Moles/volume ] in Serum or Plasma 136-145 [facility] Troponin I High Sensitivityo n 08-18-2024 Troponin I High Sensitivity 4.7 pg/mL Normal 0.0-15.0 [facility] Comment on above: Result Comment: PERF ORMED BY: [facility] [address] [place] [address] PATHOLOGIST JOINT CLEANING MACHINE OPERATOR JANA OLMEDO M.D. Performed By: #### H S TROP ####[address] [address] [facility] Troponin I High Sensitivity 5.1 pg/mL Normal 0.0-15.0 [facility] Comment on above: Result Comment: PERF ORMED BY: [facility] [address] [place] [address] PATHOLOGIST JOINT CLEANING MACHINE OPERATOR JANA OLMEDO M.D. Performed By: #### H S TROP, LIPASE, PT, BMP, HEPATIC, CK, CBC, BNP ####[address] [address] [facility] Troponin I.cardiac [Mass/vol ume] in Serum or Plasma by Detection limit <= 0.01 ng/Ordered By: Lynnette Chapman on 08-18-2024 Troponin I.cardiac DL <= 0.01 ng/mL [Mass/Vol] Troponin I.cardiac [Mass/volume] in Serum or Plasma by Detection limit <= 0.01 ng/ 0.0-15.0 [facility] Urea nitrogen [Mass/volume] in Serum or PlasmaOrdered By: Lynnette Chapman on 08-18-2024 Urea nitrogen [Mass/Vol] Urea nitrogen [Mass/volume] in Serum or Plasma 7-25 [facility] WBC Auto (Bld) [#/Vol]Ordere d By: Lynnette Chapman on 08-18-2024 WBC (Bld) [#/Vol] Leukocytes [#/volume ] in Blood by Automated count 3.8-11.6 [facility] XR chest 2V*on 08-18-2024 XR chest 2V* [facility] [place] [address] XRay Report Signed Patient: Jose Alberto Saleem MR#: [id number] : 1965 Acct:[id number] Age/Sex: 59 / F ADM Date: 08/18/24 Loc: Room: [address] [place] [address] Type: ADM INOo Attending Dr: Donis Arroyo [...] ACUTE CARDIOPULMONARY ABNORMALITY. Impression dictated by: Thelma Wcik M.D.08/19/2024 12:10 AM Dictation Location: [place] [address] Transcribed By: [facility] 08/19/24 0010 Dictated By: Thelma Wick MD 08/18/24 2673 Signed By: 08/19/24 0010 Normal [facility] Reminderson 08-05-2024 Reminders Reminders From: Magdalena Longoria To: EU - Administrative; Sent: 08/05/2024 13:08:24 EST Show up: 03/01/2025 13:08:00 EDT Subject: 1 yr reminder Due Date/Time: 08/01/2025 13:08:00 EDT Reminder/Recall Patient needs scheduled with [facility] for a 1 yr f/u with [facility] Normal [facility] Urology Office/Clinic Noteon 08-05-2024 Urology Office/Clinic [...] Myrbetriq from 25mg to 50mg qd Ordered: 13379 Measure Post Void residual urine and/or bladder capacity by US- non-imaging E&M of Est. Patient Moderate 30-39 Min 09487 Urnls Dip Stick Auto w/o Microscopy POC 25240 2. Urethral pain (R39.89: Other symptoms and [...] 90 tab(s), Refills(s) 3, Pharmacy: [facility] [id number], 160, cm, 08/05/24 11:29:00 EST, Height/Length Dosing, [...] year Additional Instructions: Patient Education Kidney Stones, Ouqp-zb-[id number] Problem List/Past Medical History Ongoing Anticoagulated Feeling (more content not included)... Normal [facility] Comment on above: Result Comment: Elec [...] wk f/u. Appointment due by 06/19/2024 in [place] with [facility] PT SCHEDULED JUL 03, 2024 Normal [facility] Urology Office/Clinic Noteon 04-10-2024 Urology Office/Clinic [...] E&M of Est. Patient High 40-54 Min 58902 Urnls Dip Stick Auto w/o Microscopy POC 75646 2. OAB (overactive bladder) (N32.81: Overactive bladder) [...] E&M of Est. Patient High 40-54 Min 00747 3. Urethral pain (R39.89: Other symptoms and [...] E&M of Est. Patient High 40-54 Min 58827 Orders: estradiol topical, See Instructions, 42.5 gm, Refill(s) 6, apply a pea-sized amount vaginally and around the urethra nightly x 3 weeks, then 3x per week thereafter, [facility] #[id number], 160, cm, 04/10/24 15:13:00 EDT, Height/Length Dosing, 74, kg, 04/10/24 15:13... mirabegron, 25 mg = 1 tab(s), Oral, Daily, do not fill both mirabegron AND vibegron. only fill whichever has lower co-pay., X 30 day(s), # 30 tab(s), Refills(s) 11, Pharmacy: [facility] #[id number], 160, cm, 04/10/24 15:13:00 EDT, Height/Length Dosing, 74, k... vibegron, 75 mg = 1 tab(s), Oral, Daily, X 30 day(s), # 30 tab(s), Refills(s) 11, Pharmacy: [facility] #[id number], 160, cm, 04/10/24 15:13:00 EDT, Height/Length Dosing, 74, kg, 04/10/24 15:13:00 EDT, Weight Dosing Total time spent reviewing previous notes/results/external documents, preparing the chart, conducting the encounter with the patient and family, ordering tests/medications, and documenting the encounter was 40 minutes. Follow-up With When Contact Information JENNIFER MARTINO PA-C, URL Within 3 months [address] [place] [address] Additional Instructions: Patient Education Kidney Stones, [id number]-rd-Clnw Problem List/Past Medical History Ongoing Anticoagulated Feeling of incomplete b (more content not included)... Normal [facility] Comment on above: Result Comment: Elec tronically Signed By: JENNIFER MARTINO PA-C\.br\Date and Time Signed: 04/10/24 16:09 EDT Glucose Glucometer (BldC) [M ass/Vol]on 03-06-2024 Glucose [Mass/Vol] 79 mg/dL Normal 65-99 [facility] Lab Reportson 01-23-2024 Lab Reports [id number]#1.00TIFF Normal [facility] Lab Reports [id number]#1.00TIFF Normal [facility] Lab Reportson 01-22-2024 Lab Reports [id number]#1.00TIFF Normal [facility] Reports [id number]#1.00TIFF Normal [facility] Lab Reports [id number]#1.00TIFF Normal [facility] RAD - MISCon 01-22-2024 RAD - MISC [id number]#1.00TIFF Normal [facility] Surgical Pathology Reporton 06-18-2023 Surgical Pathology Report (NOTE) Path Number: [id number] -- Diagnosis -- ENDOMETRIAL CURETTINGS: -BENIGN ENDOMETRIAL [...] Microscopic Description Microscopic examination performed. Processing Lab: [facility] [address] [place] [id number] Interpretation Performed at [facility] [address] [place], [place] SURGICAL PATHOLOGY CONSULTATION Patient Name: JOSE ALBERTO SALEEM [facility] Rec: [id number] [facility] [employer] [facility] ANATOMIC PATHOLOGY [address] [place] [address]. [place], [place] [address] Normal [facility] NON OB TRANSVAGINALon US NON OB [...] Gaby Tello DO 06/05/23 Final result Normal [facility] Ceruloplasminon 12-12-2022 Ceruloplasmin 30.6 mg/dL 19.0-39.0 mg/dL [facility] Other Ferritinon 12-12-2022 Ferritin [Mass/Vol] 43.2895503 ng/mL Normal 11.0 -306.8 ng/mL [facility] Hepatitis A Antibody Totalon 12-12-2022 Hepatitis A Antibody Total Negative . [facility] Other Hepatitis B Surface Antibody on 12-12-2022 Hepatitis B Surface Antibody Non-Reactive Non Reactive [facility] Immunoglobulin Javi Immunoglobulin G 823 mg/dL 586-1602 mg/dL [facility] Other Liver-Kidney Microsomal Abon 12-12-2022 Liver-Kidney Microsomal Ab 1.1 0.0-20.0 [facility] Other Mitochondrial (M2) Antibodyo n 12-12-2022 Mitochondrial (M2) Antibody <20.0 0.0-20.0 [place] [employer] Other Smooth Muscle Antibodyon Smooth Muscle Antibody 5 0-19 No rt [employer] Other MR MRCPon 11-10-2022 MR MRCP [facility] [employer] Other MR MRCP [facility] [employer] Other MR MRCP [address] [facility] [employer] [place] [address] [facility] [employer] Other MR MRCP MRI Report [facility] [employer] Other MR MRCP Signed [place] [employer] Other MR MRCP Patient: Danika Saleem MR#: [id number] [facility] [employer] Other MR MRCP [address] [facility] [employer] Other MR MRCP : 1965 Acct:[id number] [facility] Other MR MRCP Age/Sex: 57 / F ADM Date: 11/10/22 [facility] Other MR MRCP Loc: MR Room: Type: [facility] Other MR MRCP Attending Dr: Evert salinas MD [facility] Other MR MRCP Copies to: Evert Bruno MD [facility] Other MR MRCP Ordering Provider: Marleny Bruno MD [facility] Other MR MRCP Date of Service: 11/10/22 [facility] Other MR MRCP MR/MR MRCP: Abdominal pain;Common bile duct dilatation;Elevated liver en [facility] Other MR MRCP MRCP [facility] [employer] Other MR MRCP CLINICAL DATA: Buhl hayley lipase. Abnormal outside abdominal CT [facility] Other MR MRCP COMPARISON: CT abdom en 10/16/2022 [place] [employer] Other MR MRCP Multiecho imaging of the abdomen was performed along with radial imaging of the biliary tree. [facility] Other MR MRCP The gallbladder surgically absent. There is no significant intrahepatic biliary dilatation. The [facility] Other MR MRCP common duct is sligh tly prominent measuring up to 6 mm. It tapers toward the ampulla. No in [facility] Other MR MRCP traluminal filling defects are identified to suggest choledocholithiasis. The pancreatic duct is [facility] Other MR MRCP also borderline prom inent measuring 2 - 3 mm. No intrahepatic masses are identified. No pancreatic [facility] Other MR MRCP abnormalities are no hayley. The spleen and adrenal glands are within normal limits. There is no [facility] Other MR MRCP hydronephrosis. Ther e are right renal cysts. There is no aortic aneurysm. No adenopathy or [facility] Other MR MRCP ascites is seen. The re is no dilated bowel within the vnmfi-nl-wcyp. [facility] Other MR MRCP M R/MR MRCP [facility] Other MR MRCP IMPRESSION: [facility] Other MR MRCP SLIGHTLY PROMINENT C OMMON DUCT, WITHOUT CHOLEDOCHOLITHIASIS. THIS MAY RELATE TO PREVIOUS [facility] Other MR MRCP CHOLECYSTECTOMY. [employer] Other MR MRCP RIGHT RENAL CYSTS. [facility] Other MR MRCP NO OTHER SIGNIFICANT MRI FINDINGS. [facility] Other MR MRCP Impression dictated by: Thelma Wick M.D.11/10/2022 7:00 PM [facility] Other MR MRCP Dictation Location: [place] [address] [facility] Other MR MRCP Transcribed By: P[facility] 11/10/221899 [facility] Other MR MRCP Dictated By: Thelma Wick MD 11/10/221849 [facility] Other MR MRCP Signed By: [facility] Other MR MRCP 11/10/221899 [facility] Other Albumin [Mass/volume] in Ser um or PlasmaOrdered By: Evert Bruno on 11-01-2022 Albumin [Mass/Vol] 4.0 g/dL 3.2-5.5 [facility] Direct bilirubin measurement Ordered By: Imsara Bruno on 11-01-2022 Bilirubin.direct [Mass/Vol] 0.1 mg/dL 0.0-0.4 [facility] Globulin Calc (S) [Mass/Vol] Ordered By: Imsara Bruno on 11-01-2022 Globulin (S) [Mass/Vol] 2.5 g/dL [facility] Hepatic Panelon 11-01-2022 Albumin [Mass/Vol] 4.780559 g/dL Normal 3.2-5.5 g/dL [facility] Other ALT [Catalytic activity/Vol] 94 U/L High 10-60 U/L [facility] Other Bilirubin [Mass/Vol] 0.0799954 mg/dL Normal 0.3- 1.2 mg/dL [facility] Other Bilirubin.indirect [Mass/Vol] 0.1246376 mg/dL Normal 0.0-0.4 mg/dL [facility] Other Protein [Mass/Vol] 6.078464 g/dL Normal 6.1-7.9 g/dL [facility] Other Hepatic Panel 0.5 mg/dL [facility] Other Hepatic Panel 2.5 g/dL [facility] Other Protein [Mass/volume] in Ser um or PlasmaOrdered By: Evert Bruno on 11-01-2022 Protein [Mass/Vol] 6.5 g/dL 6.1-7.9 [facility] Serum or plasma alanine li otransferase measurement without P-5'-P (enzymatic activiOrdered By: Evert Bruno on 11-01-2022 ALT No additional P-5'-P [Catalytic activity/Vol] 94 U/L 10-60 [facility] Serum or plasma albumin/glob ulin mass ratioOrdered By: Evert Bruno on 11-01-2022 Albumin/Globulin [Mass ratio] 1.6 {ratio} [facility] Serum or plasma alkaline monster sphatase measurement (enzymatic activity/volume)Ordered By: Evert Bruno on 11-01-2022 ALP [Catalytic activity/Vol] 93 U/L 32-92 [facility] Serum or plasma aspartate am inotransferase measurement (enzymatic activity/volume)Ordered By: Evert Bruno on 11-01-2022 AST [Catalytic activity/Vol] 66 U/L 10-42 [facility] Serum or plasma non-glucuron idated bilirubin measurement (mass/volume)Ordered By: Evert Bruno on 11-01-2022 Bilirubin.indirect [Mass/Vol] 0.5 mg/dL [facility] Serum or plasma total biliru bin measurement (mass/volume)Ordered By: Evert Bruno on 11-01-2022 Bilirubin [Mass/Vol] 0.6 mg/dL 0.3-1.[address] [facility] [address] ABDOMEN WO/W CONon 2022 CT ABDOMEN [...] JAE WILSON Date: 2022-10-17 08:23 Normal [facility] AMMONIAon 10-09-2022 Ammonia (P) [Moles/Vol] 10 umol/L Critically low 11-32 [facility] Comment on above: Performed By: #### A MY #### [facility] [address] [place] [address] Dr. Ayden Cam AMYLASEon 10-09-2022 Amylase [Catalytic activity/Vol] 144 U/L Critically high 25-115 [facility] Comment on above: Performed By: #### L IPA #### [facility] [address] [place] [address] Dr. Ayden Cam CBC AUTO DIFFon 10-09-2022 BASO # 0.0 103/ul Normal 0.0-0.1 [facility] Comment on above: Performed By: #### C BC #### [facility] [address] [place] [address] Dr. Ayden Cam Basophils/100 WBC (Bld) 0.2 % Normal 0.2-2.0 [facility] Comment on above: Performed By: #### C BC #### [facility] [address] [place] [address] Dr. Ayden Cam EO # 0.2 103/ul Normal 0.0-0.7 [facility] Comment on above: Performed By: #### C BC #### [facility] [address] [place] [address] Dr. Ayden Cam Eosinophils/100 WBC (Bld) 3.3 % Normal 0.9-7.0 [facility] Comment on above: Performed By: #### C BC #### [facility] [address] [place] [address] Dr. Ayden Cam Erythrocyte distribution width (RBC) [Ratio] 12.1 % Normal 11.0-15.0 [facility] Comment on above: Performed By: #### C BC #### [facility] [address] [place] [address] Dr. Ayden Cam Hematocrit (Bld) [Volume fraction] 40.0 % Normal 36.0-48.0 [facility] Comment on above: Performed By: #### C BC #### [facility] [address] [place] [address] Dr. Ayden Cam Hemoglobin (Bld) [Mass/Vol] 14.2 g/dL Normal 12.0-16.0 [facility] Comment on above: Performed By: #### C BC #### [facility] [address] [place] [address] Dr. Ayden Cam IG # 0.01 10e3/ul Normal 0.00-0.03 [facility] Comment on above: Performed By: #### C BC #### [facility] [address] [place] [address] Dr. Ayden Cam IG % 0.2 % Normal 0.0-0.5 [facility] Comment on above: Performed By: #### C BC #### [facility] [address] [place] [address] Dr. Ayden Cam LYMPH # 1.5 103/ul Normal 1.2-3.8 [facility] Comment on above: Performed By: #### C BC #### [facility] [address] [place] [address] Dr. Ayden Cam Lymphocytes/100 WBC (Bld) 24.2 % Normal 20.5-60.0 [facility] Comment on above: Performed By: #### C BC #### [facility] [address] [place] [address] Dr. Ayden Cam MANUAL DIFF REQ NO Normal [facility] Comment on above: Performed By: #### C BC #### [facility] [address] [place] [address] Dr. Ayden Cam MCH (RBC) [Entitic mass] 30.0 pg Normal 26.7-34.0 [facility] Comment on above: Performed By: #### C BC #### [facility] [address] [place] [address] Dr. Ayden Cam MCHC (RBC) [Mass/Vol] 35.5 g/dL Critically high 29.9-35.2 [facility] Comment on above: Performed By: #### C BC #### [facility] [address] [place] [address] Dr. Ayden Cam MCV (RBC) [Entitic vol] 84.4 fL Normal 81.0-99.0 [facility] Comment on above: Performed By: #### C BC #### [facility] [address] [place] [address] Dr. Ayden Cam MONO # 0.6 103/ul Normal 0.3-0.8 [facility] Comment on above: Performed By: #### C BC #### [facility] [address] [place] [address] Dr. Ayden Cam Monocytes/100 WBC (Bld) 10.3 % Normal 1.7-12.0 [facility] Comment on above: Performed By: #### C BC #### [facility] [address] [place] [address] Dr. Ayden Cam NEUT # 3.7 103/ul Normal 1.4-6.5 [facility] Comment on above: Performed By: #### C BC #### [facility] [address] [address] [address] Ayden Cam Neutrophils/100 WBC (Bld) 61.8 % Normal 43.0-75.0 [facility] Comment on above: Performed By: #### C BC #### [facility] [address] [place] [address] Dr. Ayden Cam Platelet mean volume (Bld) [Entitic vol] 9.0 fL Critically low 9.5-13.5 [facility] Comment on above: Performed By: #### C BC #### [facility] [address] [address] [address] Ayden Cam PLT 191 103/ul Normal 150-450 [facility] Comment on above: Performed By: #### C BC #### [facility] [address] [place] [address] Dr. Ayden Cam RBC 4.74 106/ul Normal 4.20-5.40 [facility] Comment on above: Performed By: #### C BC #### [facility] [address] [place] [address] Dr. Ayden Cam WBC 6.0 103/ul Normal 4.0-11.0 [facility] Comment on above: Performed By: #### C BC #### [facility] [address] [place] [address] Dr. Ayden Cam LIPASEon 10-09-2022 Lipase [Catalytic activity/Vol] 168.0 U/L Normal 73.0-393.0 [facility] Comment on above: Performed By: #### L ACT #### [facility] [address] [place] [address] Dr. Ayden Cam PROF 14(COMP METB)on 023 Albumin [Mass/Vol] 3.6 g/dL Normal 3.4-5.0 [facility] Comment on above: Performed By: #### L IPA #### [facility] [address] [place] [address] Dr. Ayden Cam Albumin/Globulin [Mass ratio] 1.1 {ratio} Normal [facility] Comment on above: Performed By: #### L IPA #### [facility] [address] [place] [address] Dr. Ayden Cam ALP [Catalytic activity/Vol] 93 U/L Normal 46-116 [facility] Comment on above: Performed By: #### L IPA #### [facility] [address] [address] [address] Ayden Cam ALT [Catalytic activity/Vol] 52 U/L Normal 14-59 [facility] Comment on above: Performed By: #### L IPA #### [facility] [address] [place] [address] Dr. Ayden Cam Anion gap [Moles/Vol] 10.2 mmol/L Normal [facility] Comment on above: Performed By: #### L IPA #### [facility] [address] [place] [address] Dr. Ayden Cam AST [Catalytic activity/Vol] 33 U/L Normal 15-37 [facility] Comment on above: Performed By: #### L IPA #### [facility] [address] [place] [address] Dr. Ayden Cam Bilirubin [Mass/Vol] 0.3 mg/dL Normal 0.2-1.0 [facility] Comment on above: Performed By: #### L IPA #### [facility] [address] [place] [address] Dr. Ayden Cam Calcium [Mass/Vol] 9.4 mg/dL Normal 8.5-10.1 [facility] Comment on above: Performed By: #### L IPA #### [facility] [address] [place] [address] Dr. Ayden Cam Chloride [Moles/Vol] 99 mmol/L Normal 98-107 [facility] Comment on above: Performed By: #### L IPA #### [facility] [address] [place] [address] Dr. Ayden Cam CO2 [Moles/Vol] 33.7 mmol/L Critically high 21.0-32.0 [facility] Comment on above: Performed By: #### L IPA #### [facility] [address] [place] [address] Dr. Ayden Cam Creatinine [Mass/Vol] 0.62 mg/dL Normal 0.55-1.02 [facility] Comment on above: Performed By: #### L IPA #### [facility] [address] [place] [address] Dr. Ayden Cam EGFR-AF [place] >60 Normal >=60 [facility] Comment on above: Performed By: #### L IPA #### [facility] [address] [address] [address] Ayden Cam EGFR-NON AF [place] >60 Normal >=60 [facility] Comment on above: Performed By: #### L IPA #### [facility] [address] [place] [address] Dr. Ayden Cam Globulin (S) [Mass/Vol] 3.4 g/dL Normal [facility] Comment on above: Performed By: #### L IPA #### [facility] [address] [place] [address] Dr. Ayden Cam Glucose [Mass/Vol] 105 mg/dL Normal 74-[address] [facility] Comment on above: Performed By: #### L IPA #### [facility] [address] [place] [address] Dr. Ayden Cam Potassium [Moles/Vol] 3.9 mmol/L Normal 3.5-5.1 [facility] Comment on above: Performed By: #### L IPA #### [facility] [address] [place] [address] Dr. Ayden Cam Protein [Mass/Vol] 7.0 g/dL Normal 6.4-8.[address] [facility] Comment on above: Performed By: #### L IPA #### [facility] [address] [address] [address] Ayden Cam Sodium [Moles/Vol] 139 mmol/L Normal 136-[address] [facility] Comment on above: Performed By: #### L IPA #### [facility] [address] [place] [address] Dr. Ayden Cam Urea nitrogen [Mass/Vol] 28.0 mg/dL Critically high 7.0-18.0 [facility] Comment on above: Performed By: #### L IPA #### [facility] [address] [place] [address] Dr. Ayden Cam Urea nitrogen/Creatinine [Mass ratio] 45.2 mg/mg Normal [facility] Comment on above: Performed By: #### L IPA #### [facility] [address] [place] [address] Dr. Ayden Cma AMMONIAon 10-06-2022 Ammonia (P) [Moles/Vol] 16 umol/L Normal 11-32 [facility] Comment on above: Performed By: #### A MM #### [facility] [address] [place] [address] Dr. Ayden Cam AMYLASEon 10-06-2022 Amylase [Catalytic activity/Vol] 189 U/L Critically high 25-115 [facility] Comment on above: Performed By: #### L IPA #### [facility] [address] [place] [address] Dr. Ayden Cam CBC AUTO DIFFon 10-06-2022 BASO # 0.0 103/ul Normal 0.0-0.1 [facility] Comment on above: Performed By: #### C BC #### [facility] [address] [place] [address] Dr. Ayden Cam Basophils/100 WBC (Bld) 0.2 % Normal 0.2-2.0 [facility] Comment on above: Performed By: #### C BC #### [facility] [address] [place] [address] Dr. Ayden Cam EO # 0.3 103/ul Normal 0.0-0.7 [facility] Comment on above: Performed By: #### C BC #### [facility] [address] [place] [address] Dr. Ayden Cam Eosinophils/100 WBC (Bld) 5.2 % Normal 0.9-7.0 [facility] Comment on above: Performed By: #### C BC #### [facility] [address] [place] [address] Dr. Ayden Cam Erythrocyte distribution width (RBC) [Ratio] 12.3 % Normal 11.0-15.0 [facility] Comment on above: Performed By: #### C BC #### [facility] [address] [place] [address] Dr. Ayden Cam Hematocrit (Bld) [Volume fraction] 36.9 % Normal 36.0-48.0 [facility] Comment on above: Performed By: #### C BC #### [facility] [address] [place] [address] Dr. Ayden Cam Hemoglobin (Bld) [Mass/Vol] 12.4 g/dL Normal 12.0-16.0 [facility] Comment on above: Performed By: #### C BC #### [facility] [address] [place] [address] Dr. Ayden Cam IG # 0.01 10e3/ul Normal 0.00-0.03 [facility] Comment on above: Performed By: #### C BC #### [facility] [address] [place] [address] Dr. Ayden Cam IG % 0.2 % Normal 0.0-0.5 [facility] Comment on above: Performed By: #### C BC #### [facility] [address] [place] [address] Dr. Ayden Cam LYMPH # 1.8 103/ul Normal 1.2-3.8 [facility] Comment on above: Performed By: #### C BC #### [facility] [address] [place] [address] Dr. Ayden Cam Lymphocytes/100 WBC (Bld) 31.3 % Normal 20.5-60.0 [facility] Comment on above: Performed By: #### C BC #### [facility] [address] [place] [address] Dr. Ayden Cam MANUAL DIFF REQ NO Normal [facility] Comment on above: Performed By: #### C BC #### [facility] [address] [place] [address] Dr. Ayden Cam MCH (RBC) [Entitic mass] 30.0 pg Normal 26.7-34.0 [facility] Comment on above: Performed By: #### C BC #### [facility] [address] [address] [address] Ayden Cam MCHC (RBC) [Mass/Vol] 33.6 g/dL Normal 29.9-35.2 [facility] Comment on above: Performed By: #### C BC #### [facility] [address] [address] [address] Ayden Cam MCV (RBC) [Entitic vol] 89.1 fL Normal 81.0-99.0 [facility] Comment on above: Performed By: #### C BC #### [facility] [address] [place] [address] Dr. Ayden Cam MONO # 0.6 103/ul Normal 0.3-0.8 [facility] Comment on above: Performed By: #### C BC #### [facility] [address] [place] [address] Dr. Ayden Cam Monocytes/100 WBC (Bld) 10.1 % Normal 1.7-12.0 [facility] Comment on above: Performed By: #### C BC #### [facility] [address] [place] [address] Dr. Ayden Cam NEUT # 3.1 103/ul Normal 1.4-6.5 [facility] Comment on above: Performed By: #### C BC #### [facility] [address] [place] [address] Dr. Ayden Cam Neutrophils/100 WBC (Bld) 53.0 % Normal 43.0-75.0 [facility] Comment on above: Performed By: #### C BC #### [facility] [address] [place] [address] Dr. Ayden Cam Platelet mean volume (Bld) [Entitic vol] 9.4 fL Critically low 9.5-13.5 [facility] Comment on above: Performed By: #### C BC #### [facility] [address] [place] [address] Dr. Ayden Cam PLT 153 103/ul Normal 150-450 [facility] Comment on above: Performed By: #### C BC #### [facility] [address] [address] [address] Ayden Cam RBC 4.14 106/ul Critically low 4.20-5.40 [facility] Comment on above: Performed By: #### C BC #### [facility] [address] [place] [address] Dr. Ayden Cam WBC 5.8 103/ul Normal 4.0-11.0 [facility] Comment on above: Performed By: #### C BC #### [facility] [address] [place] [address] Dr. Ayden Cam LIPASEon 10-06-2022 Lipase [Catalytic activity/Vol] 166.0 U/L Normal 73.0-393.0 [facility] Comment on above: Performed By: #### L IPA #### [facility] [address] [place] [address] Dr. Ayden Cam LIVER PROFILEon 10-06-2022 Albumin [Mass/Vol] 3.2 g/dL Critically low 3.4-5.0 [facility] Comment on above: Performed By: #### L IPA #### [facility] [address] [place] [address] Dr. Ayden Cam Albumin/Globulin [Mass ratio] 1.3 {ratio} Normal [facility] Comment on above: Performed By: #### L IPA #### [facility] [address] [place] [address] Dr. Ayden Cam ALP [Catalytic activity/Vol] 88 U/L Normal 46-116 [facility] Comment on above: Performed By: #### L IPA #### [facility] [address] [place] [address] Dr. Ayden Cam ALT [Catalytic activity/Vol] 66 U/L Critically high 14-59 [facility] Comment on above: Performed By: #### L IPA #### [facility] [address] [place] [address] Dr. Ayden Cam AST [Catalytic activity/Vol] 39 U/L Critically high 15-37 [facility] Comment on above: Performed By: #### L IPA #### [facility] [address] [address] [address] Ayden Cam BILI, CONJUGATED 0.1 mg/dL Normal 0.0-0.2 [facility] Comment on above: Performed By: #### L IPA #### [facility] [address] [address] [address] Ayden Cam Bilirubin [Mass/Vol] 0.4 mg/dL Normal 0.2-1.0 [facility] Comment on above: Performed By: #### L IPA #### [facility] [address] [address] [address] Ayden Cam Globulin (S) [Mass/Vol] 2.4 g/dL Normal [facility] Comment on above: Performed By: #### L IPA #### [facility] [address] [place] [address] Dr. Ayden Cam Protein [Mass/Vol] 5.6 g/dL Critically low 6.4-8.2 [facility] Comment on above: Performed By: #### L IPA #### [facility] [address] [address] [address] Ayden Cam PROF CHEM 8 (BAS METB)on Anion gap [Moles/Vol] 6.8 mmol/L Normal [facility] Comment on above: Performed By: #### L IPA #### [facility] [address] [address] [address] Ayden Cam Calcium [Mass/Vol] 8.6 mg/dL Normal 8.5-10.1 [facility] Comment on above: Performed By: #### L IPA #### [facility] [address] [address] [address] Ayden Cam Chloride [Moles/Vol] 102 mmol/L Normal 98-107 [facility] Comment on above: Performed By: #### L IPA #### [facility] [address] [address] [address] Ayden Cam CO2 [Moles/Vol] 32.6 mmol/L Critically high 21.0-32.0 [facility] Comment on above: Performed By: #### L IPA #### [facility] [address] [address] [address] Ayden Cam Creatinine [Mass/Vol] 0.61 mg/dL Normal 0.55-1.02 [facility] Comment on above: Performed By: #### L IPA #### [facility] [address] [address] [address] Ayden Cam EGFR-AF [place] >60 Normal >=60 [facility] Comment on above: Performed By: #### L IPA #### [facility] [address] [address] [address] Ayden Cam EGFR-NON AF [place] >60 Normal >=60 [facility] Comment on above: Performed By: #### L IPA #### [facility] [address] [address] [address] Ayden Cam Glucose [Mass/Vol] 91 mg/dL Normal 74-106 [facility] Comment on above: Performed By: #### L IPA #### [facility] [address] [address] [address] Ayden Cam Potassium [Moles/Vol] 3.4 mmol/L Critically low 3.5-5.1 [facility] Comment on above: Performed By: #### L IPA #### [facility] [address] [place] [address] Dr. Ayden Cam Sodium [Moles/Vol] 138 mmol/L Normal 136-[address] [facility] Comment on above: Performed By: #### L IPA #### [facility] [address] [address] [address] Ayden Cam Urea nitrogen [Mass/Vol] 13.0 mg/dL Normal 7.0-18.0 [facility] Comment on above: Performed By: #### L IPA #### [facility] [address] [address] [address] Ayden Cam Urea nitrogen/Creatinine [Mass ratio] 21.3 mg/mg Normal [facility] Comment on above: Performed By: #### L IPA #### [facility] [address] [place] [address] Dr. Ayden Cam AMMONIAon 10-05-2022 Ammonia (P) [Moles/Vol] 10 umol/L Critically low 11-32 [facility] Comment on above: Performed By: #### A MM #### [facility] [address] [place] [address] Dr. Ayden Cam AMYLASEon 10-05-2022 Amylase [Catalytic activity/Vol] 109 U/L Normal 25-115 [facility] Comment on above: Performed By: #### A MY #### [facility] [address] [place] [address] Dr. Ayden Cam CBC AUTO DIFFon 10-05-2022 BASO # 0.0 103/ul Normal 0.0-0.1 [facility] Comment on above: Performed By: #### L IPA #### [facility] [address] [place] [address] Dr. Ayden Cam Basophils/100 WBC (Bld) 0.3 % Normal 0.2-2.0 [facility] Comment on above: Performed By: #### L IPA #### [facility] [address] [place] [address] Dr. Ayden Cam EO # 0.3 103/ul Normal 0.0-0.7 [facility] Comment on above: Performed By: #### L IPA #### [facility] [address] [place] [address] Dr. Ayden Cam Eosinophils/100 WBC (Bld) 4.3 % Normal 0.9-7.0 [facility] Comment on above: Performed By: #### L IPA #### [facility] [address] [place] [address] Dr. Ayden Cam Erythrocyte distribution width (RBC) [Ratio] 12.2 % Normal 11.0-15.0 [facility] Comment on above: Performed By: #### L IPA #### [facility] [address] [place] [address] Dr. Ayden Cam Hematocrit (Bld) [Volume fraction] 38.9 % Normal 36.0-48.0 [facility] Comment on above: Performed By: #### L IPA #### [facility] [address] [address] [address] Ayden Cam Hemoglobin (Bld) [Mass/Vol] 12.8 g/dL Normal 12.0-16.0 [facility] Comment on above: Performed By: #### L IPA #### [facility] [address] [address] [address] Ayden Cam IG # 0.01 10e3/ul Normal 0.00-0.03 [facility] Comment on above: Performed By: #### L IPA #### [facility] [address] [place] [address] Dr. Ayden Cam IG % 0.2 % Normal 0.0-0.5 [facility] Comment on above: Performed By: #### L IPA #### [facility] [address] [place] [address] Dr. Ayden Cam LYMPH # 1.9 103/ul Normal 1.2-3.8 [facility] Comment on above: Performed By: #### L IPA #### [facility] [address] [place] [address] Dr. Ayden Cam Lymphocytes/100 WBC (Bld) 31.4 % Normal 20.5-60.0 [facility] Comment on above: Performed By: #### L IPA #### [facility] [address] [place] [address] Dr. Ayden Cam MANUAL DIFF REQ NO Normal [facility] Comment on above: Performed By: #### L IPA #### [facility] [address] [place] [address] Dr. Ayden Cam MCH (RBC) [Entitic mass] 29.6 pg Normal 26.7-34.0 [facility] Comment on above: Performed By: #### L IPA #### [facility] [address] [place] [address] Dr. Ayden Cam MCHC (RBC) [Mass/Vol] 32.9 g/dL Normal 29.9-35.2 [facility] Comment on above: Performed By: #### L IPA #### [facility] [address] [address] [address] Ayden Cam MCV (RBC) [Entitic vol] 89.8 fL Normal 81.0-99.0 [facility] Comment on above: Performed By: #### L IPA #### [facility] [address] [address] [address] Ayden Cam MONO # 0.6 103/ul Normal 0.3-0.8 [facility] Comment on above: Performed By: #### L IPA #### [facility] [address] [address] [address] Ayden Cam Monocytes/100 WBC (Bld) 10.1 % Normal 1.7-12.0 [facility] Comment on above: Performed By: #### L IPA #### [facility] [address] [place] [address] Dr. Ayden Cam NEUT # 3.2 103/ul Normal 1.4-6.5 [facility] Comment on above: Performed By: #### L IPA #### [facility] [address] [place] [address] Dr. Ayden Cam Neutrophils/100 WBC (Bld) 53.7 % Normal 43.0-75.0 [facility] Comment on above: Performed By: #### L IPA #### [facility] [address] [place] [address] Dr. Ayden Cam Platelet mean volume (Bld) [Entitic vol] 9.7 fL Normal 9.5-13.5 [facility] Comment on above: Performed By: #### L IPA #### [facility] [address] [place] [address] Dr. Ayden Cam PLT 168 103/ul Normal 150-450 [facility] Comment on above: Performed By: #### L IPA #### [facility] [address] [place] [address] Dr. Ayden Cam RBC 4.33 106/ul Normal 4.20-5.40 [facility] Comment on above: Performed By: #### L IPA #### [facility] [address] [place] [address] Dr. Ayden Cam WBC 6.0 103/ul Normal 4.0-11.0 [facility] Comment on above: Performed By: #### L IPA #### [facility] [address] [place] [address] Dr. Ayden Cam LIPASEon 10-05-2022 Lipase [Catalytic activity/Vol] 151.0 U/L Normal 73.0-393.0 [facility] Comment on above: Performed By: #### L IPA #### [facility] [address] [place] [address] Dr. Ayden Cam LIVER PROFILEon 10-05-2022 Albumin [Mass/Vol] 3.2 g/dL Critically low 3.4-5.0 [facility] Comment on above: Performed By: #### L ACT #### [facility] [address] [place] [address] Dr. Ayden Cam Albumin/Globulin [Mass ratio] 1.1 {ratio} Normal [facility] Comment on above: Performed By: #### L ACT #### [facility] [address] [place] [address] Dr. Ayden Cam ALP [Catalytic activity/Vol] 82 U/L Normal 46-116 [facility] Comment on above: Performed By: #### L ACT #### [facility] [address] [place] [address] Dr. Ayden Cam ALT [Catalytic activity/Vol] 70 U/L Critically high 14-59 [facility] Comment on above: Performed By: #### L ACT #### [facility] [address] [place] [address] Dr. Ayden Cam AST [Catalytic activity/Vol] 36 U/L Normal 15-37 [facility] Comment on above: Performed By: #### L ACT #### [facility] [address] [place] [address] Dr. Ayden Cam BILI, CONJUGATED 0.1 mg/dL Normal 0.0-0.2 [facility] Comment on above: Performed By: #### L ACT #### [facility] [address] [place] [address] Dr. Ayden Cam Bilirubin [Mass/Vol] 0.3 mg/dL Normal 0.2-1.0 [facility] Comment on above: Performed By: #### L ACT #### [facility] [address] [address] [address] Ayden Cam Globulin (S) [Mass/Vol] 3.0 g/dL Normal [facility] Comment on above: Performed By: #### L ACT #### [facility] [address] [address] [address] Ayden Cam Protein [Mass/Vol] 6.2 g/dL Critically low 6.4-8.2 [facility] Comment on above: Performed By: #### L ACT #### [facility] [address] [place] [address] Dr. Ayden Cam PROF CHEM 8 (BAS METB)on Anion gap [Moles/Vol] 9.5 mmol/L Normal [facility] Comment on above: Performed By: #### B MP #### [facility] [address] [place] [address] Dr. Ayden Cam Calcium [Mass/Vol] 8.9 mg/dL Normal 8.5-10.1 [facility] Comment on above: Performed By: #### B MP #### [facility] [address] [place] [address] Dr. Ayden Cam Chloride [Moles/Vol] 105 mmol/L Normal 98-107 [facility] Comment on above: Performed By: #### B MP #### [facility] [address] [place] [address] Dr. Ayden Cam CO2 [Moles/Vol] 29.6 mmol/L Normal 21.0-32.0 [facility] Comment on above: Performed By: #### B MP #### [facility] [address] [place] [address] Dr. Ayden Cam Creatinine [Mass/Vol] 0.56 mg/dL Normal 0.55-1.02 [facility] Comment on above: Performed By: #### B MP #### [facility] [address] [address] [address] Ayden Cam EGFR-AF [place] >60 Normal >=60 [facility] [facility] Comment on above: Performed By: #### B MP #### [facility] [address] [address] [address] Ayden Cam EGFR-NON AF [place] >60 Normal >=60 [facility] Comment on above: Performed By: #### B MP #### [facility] [address] [address] [address] Ayden Cam Glucose [Mass/Vol] 88 mg/dL Normal 74-106 [facility] Comment on above: Performed By: #### B MP #### [facility] [address] [place] [address] Dr. Ayden Cam Potassium [Moles/Vol] 4.1 mmol/L Normal 3.5-5.1 [facility] Comment on above: Performed By: #### B MP #### [facility] [address] [place] [address] Dr. Ayden Cam Sodium [Moles/Vol] 140 mmol/L Normal 136-[address] [facility] Comment on above: Performed By: #### B MP #### [facility] [address] [place] [address] Dr. Ayden Cam Urea nitrogen [Mass/Vol] 15.0 mg/dL Normal 7.0-18.0 [facility] Comment on above: Performed By: #### B MP #### [facility] [address] [place] [address] Dr. Ayden Cam Urea nitrogen/Creatinine [Mass ratio] 26.8 mg/mg Normal [facility] Comment on above: Performed By: #### B MP #### [facility] [address] [place], [place] [id number] Dr. Ayden Cam US Jhony 10-05-2022 US [...] RONAN TORIBIO Date: 2022-10-05 09:52 Normal [facility] XR KUB 1 VIEWon 10-05-2022 [...] RONAN TORIBIO Date: 2022-10-05 09:55 Normal [facility] AMYLASEon 10-04-2022 Amylase [Catalytic activity/Vol] 124 U/L Critically high 25-115 [facility] Comment on above: Performed By: #### L IPA, COLE, CMP #### [facility] [address] [address] [address] Ayden Cam CBC AUTO DIFFon 10-04-2022 BASO # 0.0 103/ul Normal 0.0-0.1 [facility] Comment on above: Performed By: #### L IPA #### [facility] [address] [address] [address] Ayden Cam Basophils/100 WBC (Bld) 0.3 % Normal 0.2-2.0 [facility] Comment on above: Performed By: #### L IPA #### [facility] [address] [place] [address] Dr. Ayden Cam EO # 0.2 103/ul Normal 0.0-0.7 [facility] Comment on above: Performed By: #### L IPA #### [facility] [address] [place] [address] Dr. Ayden Cam Eosinophils/100 WBC (Bld) 2.9 % Normal 0.9-7.0 [facility] Comment on above: Performed By: #### L IPA #### [facility] [address] [place] [address] Dr. Ayden Cam Erythrocyte distribution width (RBC) [Ratio] 12.3 % Normal 11.0-15.0 [facility] Comment on above: Performed By: #### L IPA #### [facility] [address] [place] [address] Dr. Ayden Cam Hematocrit (Bld) [Volume fraction] 42.0 % Normal 36.0-48.0 [facility] Comment on above: Performed By: #### L IPA #### [facility] [address] [place] [address] Dr. Ayden Cam Hemoglobin (Bld) [Mass/Vol] 14.3 g/dL Normal 12.0-16.0 [facility] Comment on above: Performed By: #### L IPA #### [facility] [address] [place] [address] Dr. Ayden Cam IG # 0.02 10e3/ul Normal 0.00-0.03 [facility] Comment on above: Performed By: #### L IPA #### [facility] [address] [place] [address] Dr. Ayden Cam IG % 0.3 % Normal 0.0-0.5 [facility] Comment on above: Performed By: #### L IPA #### [facility] [address] [place] [address] Dr. Ayden Cam LYMPH # 1.7 103/ul Normal 1.2-3.8 [facility] Comment on above: Performed By: #### L IPA #### [facility] [address] [place] [address] Dr. Ayden Cam Lymphocytes/100 WBC (Bld) 22.5 % Normal 20.5-60.0 [facility] Comment on above: Performed By: #### L IPA #### [facility] [address] [place] [address] Dr. Ayden Cam MANUAL DIFF REQ NO Normal [facility] Comment on above: Performed By: #### L IPA #### [facility] [address] [place] [address] Dr. Ayden Cam MCH (RBC) [Entitic mass] 30.1 pg Normal 26.7-34.0 [facility] Comment on above: Performed By: #### L IPA #### [facility] [address] [place] [address] Dr. Ayden Cam MCHC (RBC) [Mass/Vol] 34.0 g/dL Normal 29.9-35.2 [facility] Comment on above: Performed By: #### L IPA #### [facility] [address] [place] [address] Dr. Ayden Cam MCV (RBC) [Entitic vol] 88.4 fL Normal 81.0-99.0 [facility] Comment on above: Performed By: #### L IPA #### [facility] [address] [place] [address] Dr. Ayden Cam MONO # 0.5 103/ul Normal 0.3-0.8 [facility] Comment on above: Performed By: #### L IPA #### [facility] [address] [place] [address] Dr. Ayden Cam Monocytes/100 WBC (Bld) 6.0 % Normal 1.7-12.0 [facility] Comment on above: Performed By: #### L IPA #### [facility] [address] [place] [address] Dr. Ayden Cam NEUT # 5.2 103/ul Normal 1.4-6.5 [facility] Comment on above: Performed By: #### L IPA #### [facility] [address] [place] [address] Dr. Ayden Cam Neutrophils/100 WBC (Bld) 68.0 % Normal 43.0-75.0 [facility] Comment on above: Performed By: #### L IPA #### [facility] [address] [place] [address] Dr. Ayden Cam Platelet mean volume (Bld) [Entitic vol] 9.6 fL Normal 9.5-13.5 [facility] Comment on above: Performed By: #### L IPA #### [facility] [address] [place] [address] Dr. Ayden Cam PLT 183 103/ul Normal 150-450 [facility] Comment on above: Performed By: #### L IPA #### [facility] [address] [place] [address] Dr. Ayden Cam RBC 4.75 106/ul Normal 4.20-5.40 [facility] Comment on above: Performed By: #### L IPA #### [facility] [address] [place] [address] Dr. Ayden Cam WBC 7.6 103/ul Normal 4.0-11.0 [facility] Comment on above: Performed By: #### L IPA #### [facility] [address] [place] [address] Dr. Ayden Cam Covid-19 PCR ([facility])on SARS-CoV-2 (COVID-19) RNA LOWELL+probe Ql (Unsp spec) Not detected Normal NOT DETECTED [facility] Comment on above: Result [...] for this test is supported by the [employer] Supervisor of Health and Human Service's declaration [...] used). Performed By: #### L IPA #### [facility] [address] [place] [address] Dr. Ayden Cam ER URINE PROFILEon 3 Bilirubin Ql (U) Negative Normal NEGATIVE [facility] Comment on above: Performed By: #### L ACT #### [facility] [address] [place] [address] Dr. Ayden Cam Clarity (U) CLEAR Normal CLEAR [facility] Comment on above: Performed By: #### L ACT #### [facility] [address] [place] [address] Dr. Ayden Cam Color (U) LT. YELLOW Normal YELLOW [facility] Comment on above: Performed By: #### L ACT #### [facility] [address] [place] [address] Dr. Ayden Cam ERUAHD A micrscopic examina tion will be performed if indicated. Normal [facility] Comment on above: Performed By: #### L ACT #### [facility] [address] [place] [address] Dr. Ayden Cam Glucose Ql (U) Negative Normal NEGATIVE [facility] Comment on above: Performed By: #### L ACT #### [facility] [address] [place] [address] Dr. Ayden Cam Hemoglobin Ql (U) Negative Normal NEGATIVE [facility] Comment on above: Performed By: #### L ACT #### [facility] [address] [place] [address] Dr. Ayden Cam Ketones Ql (U) Negative Normal NEGATIVE [facility] Comment on above: Performed By: #### L ACT #### [facility] [address] [place] [address] Dr. Ayden Cam LEUKOCYTES Negative Normal NEGATIVE [facility] Comment on above: Performed By: #### L ACT #### [facility] [address] [place] [address] Dr. Ayden Cam Nitrite Ql (U) Negative Normal NEGATIVE [facility] Comment on above: Performed By: #### L ACT #### [facility] [address] [place] [address] Dr. Ayden Cam pH (U) 8.5 [pH] Normal 5-9 [facility] Comment on above: Performed By: #### L ACT #### [facility] [address] [place] [address] Dr. Ayden Cam SPEC GRAVITY 1.015 Normal 1.005-<=1. 025 [facility] Comment on above: Performed By: #### L ACT #### [facility] [address] [place] [address] Dr. Ayden Cam UA PROTEIN Negative Normal NEGATIVE/ TRACE [facility] Comment on above: Performed By: #### L ACT #### [facility] [address] [place] [address] Dr. Ayden Cam UR MICRO IND NOT INDICATED Normal [facility] Comment on above: Performed By: #### L ACT #### [facility] [address] [place] [address] Dr. Ayden Cam Urobilinogen Qn (U) 0.2 {Peggy'U}/dL Normal 0.2 - 1. 0 [facility] Comment on above: Performed By: #### L ACT #### [facility] [address] [place] [address] Dr. Ayden Cam LACTATE/LACTIC ACIDon 2022 Lactate [Moles/Vol] 0.8 mmol/L Normal 0.4-1.9 [facility] Comment on above: Performed By: #### L ACT #### [facility] [address] [place] [address] Dr. Ayden Cam LIPASEon 10-04-2022 Lipase [Catalytic activity/Vol] 170.0 U/L Normal 73.0-393.0 [facility] Comment on above: Performed By: #### L ACT #### [facility] [address] [place] [address] Dr. Ayden Cam PROF 14(COMP METB)on 023 Albumin [Mass/Vol] 3.8 g/dL Normal 3.4-5.0 [facility] Comment on above: Performed By: #### L ACT #### [facility] [address] [place] [address] Dr. Ayden Cam Albumin/Globulin [Mass ratio] 1.1 {ratio} Normal [facility] Comment on above: Performed By: #### L ACT #### [facility] [address] [address] [address] Ayden Cam ALP [Catalytic activity/Vol] 101 U/L Normal 46-116 [facility] Comment on above: Performed By: #### L ACT #### [facility] [address] [place] [address] Dr. Ayden Cam ALT [Catalytic activity/Vol] 94 U/L Critically high 14-59 [facility] Comment on above: Performed By: #### L ACT #### [facility] [address] [place] [address] Dr. Ayden Cam Anion gap [Moles/Vol] 11.1 mmol/L Normal [facility] Comment on above: Performed By: #### L ACT #### [facility] [address] [place] [address] Dr. Ayden Cam AST [Catalytic activity/Vol] 59 U/L Critically high 15-37 [facility] Comment on above: Performed By: #### L ACT #### [facility] [address] [place] [address] Dr. Ayden Cam Bilirubin [Mass/Vol] 0.3 mg/dL Normal 0.2-1.0 [facility] Comment on above: Performed By: #### L ACT #### [facility] [address] [place] [address] Dr. Ayden Cam Calcium [Mass/Vol] 9.5 mg/dL Normal 8.5-10.1 [facility] Comment on above: Performed By: #### L ACT #### [facility] [address] [place] [address] Dr. Ayden Cam Chloride [Moles/Vol] 99 mmol/L Normal 98-107 [facility] Comment on above: Performed By: #### L ACT #### [facility] [address] [address] [address] Ayden Cam CO2 [Moles/Vol] 29.7 mmol/L Normal 21.0-32.0 [facility] Comment on above: Performed By: #### L ACT #### [facility] [address] [address] [address] Ayden Cam Creatinine [Mass/Vol] 0.61 mg/dL Normal 0.55-1.02 [facility] Comment on above: Performed By: #### L ACT #### [facility] [address] [address] [address] Ayden Cam EGFR-AF [place] >60 Normal >=60 [facility] Comment on above: Performed By: #### L ACT #### [facility] [address] [address] [address] Ayden Cam EGFR-NON AF [place] >60 Normal >=60 [facility] Comment on above: Performed By: #### L ACT #### [facility] [address] [address] [address] Ayden Cam Globulin (S) [Mass/Vol] 3.4 g/dL Normal [facility] Comment on above: Performed By: #### L ACT #### [facility] [address] [place] [address] Dr. Ayden Cam Glucose [Mass/Vol] 111 mg/dL Critically high 74-106 [facility] Comment on above: Performed By: #### L ACT #### [facility] [address] [address] [address] Ayden Cam Potassium [Moles/Vol] 3.8 mmol/L Normal 3.5-5.1 [facility] Comment on above: Performed By: #### L ACT #### [facility] [address] [address] [address] Ayden Cam Protein [Mass/Vol] 7.2 g/dL Normal 6.4-8.2 [facility] Comment on above: Performed By: #### L ACT #### [facility] [address] [address] [address] Ayden Cam Sodium [Moles/Vol] 136 mmol/L Normal 136-145 [facility] Comment on above: Performed By: #### L ACT #### [facility] [address] [address] [address] Ayden Cam Urea nitrogen [Mass/Vol] 23.0 mg/dL Critically high 7.0-18.0 [facility] Comment on above: Performed By: #### L ACT #### [facility] [address] [address] [address] Ayden Cam Urea nitrogen/Creatinine [Mass ratio] 37.7 mg/mg Normal [facility] Comment on above: Performed By: #### L ACT #### [facility] [address] [place] [address] Dr. Ayden Cam TROPONIN, HIGH SENSITIVITYon 10-04-2022 HSTROP 8.9 pg/mL Normal 4.0-51.3 [facility] Comment on above: Result Comment: CUT- OFF POINTS HAVE BEEN ESTABLISHED BASED ON THE FOURTH UNIVERSAL DEFINITIONS OF MYOCARDIAL INFARCTION. THE UPPER REFERENCE LIMIT (URL) OF TROPONIN, DEFINED THE 99TH PERCENTILE OF cTnI DISTRIBUTION IN A REFERENCE POPULATION, HAS BEEN CONFIRMED THE DECISION THRESHOLD FOR [place] DIAGNOSIS. Performed By: #### L ACT #### [facility] [address] [place] [address] Dr. Ayden Cam LIPID PROFILEon 09-19-2022 CHOL-HDL RATIO NORM SEE BELOW Normal [facility] Comment on above: Result Comment: 3.3 - 4.4 LOW RISK 4.4 - 7.1 AVERAGE RISK 7.1 - 11.0 MODERATE RISK >11.0 HIGH RISK Performed By: #### L IPA #### [facility] [address] [place] [address] Dr. Ayden Cam Cholesterol [Mass/Vol] 116 mg/dL Normal <=200 [facility] Comment on above: Performed By: #### L IPA #### [facility] [address] [address] [address] Ayden Cam Cholesterol in HDL [Mass/Vol] 59 mg/dL Normal 40-60 [facility] Comment on above: Performed By: #### L IPA #### [facility] [address] [address] [address] Ayden Cam Cholesterol in LDL [Mass/Vol] 34.0 mg/dL Normal [facility] Comment on above: Performed By: #### L IPA #### [facility] [address] [place] [address] Dr. Ayden Cam Cholesterol.total/Chol esterol in HDL [Mass ratio] 2.0 {ratio} Normal [facility] Comment on above: Performed By: #### L IPA #### [facility] [address] [place] [address] Dr. Ayden aCm HDL NORMAL > or = 60 mg/dl - LO W CARDIOVASCULAR RISK <40 mg/dl - HIGH CARDIOVASCULAR RISK Normal [facility] Comment on above: Performed By: #### L IPA #### [facility] [address] [place] [address] Dr. Ayden Cam LDL CALC NORMAL SEE BELOW Normal [facility] Comment on above: Result Comment: <100 mg/dl OPTIMAL 100 - 129 mg/dl NEAR OR ABOVE OPTIMAL 130 - 159 mg/dl BORDERLINE HIGH 160 - 189 mg/dl HIGH >190 mg/dl VERY HIGH Performed By: #### L IPA #### [facility] [address] [place] [address] Dr. Ayden Cam Triglyceride [Mass/Vol] 115 mg/dL Normal <=150 [facility] Comment on above: Performed By: #### L IPA #### [facility] [address] [place] [address] Dr. Ayden Cam VLDL CALC 23.0 mg/dL Normal [facility] Comment on above: Performed By: #### L IPA #### [facility] [address] [place] [address] Dr. Ayden Cam VITAMIN D 25 OHon 09-19-2022 VIT D 25-OH 89.3 ng/mL Normal [facility] Comment on above: Performed By: #### V ITAD #### [facility] [address] [place] [address] Dr. Ayden Cam VIT D RANGES SEE BELOW Normal [facility] Comment on above: Result Comment: <20 ng/mL Vit D deficient 20 - <30 ng/mL Vit D insufficient 30 - 100 ng/mL Vit D sufficient >100 ng/mL Potential Toxicity Performed By: #### V ITAD #### [facility] [address] [address] [address] Ayden Cam Office Visit (Cardiology)on 08-15-2022 Follow-up visit Diagnoses/Problems Assessed Atherosclerosis of coronary artery of [place] heart without angina pectoris (414.01) (I25.10) History of coronary artery bypass graft (V45.81) (Z95.1) Ischemic cardiomyopathy (414.8) (I25.5) Hyperlipidemia (272.4) (E78.5) Essential hypertension, benign (401.1) (I10) Never a smoker Overweight with body mass index (BMI) of 26 to 26.9 in adult (278.02,V85.22) (E66.3,Z68.26) Paroxysmal SVT (supraventricular tachycardia) (427.0) (I47.1) Orders Atherosclerosis of coronary artery of [place] heart without angina pectoris, Essential hypertension, benign, Hyperlipidemia Basic Metabolic Panel; Status:Active - Retrospective Authorization; Requested for:[id number]; Lipid Panel; Status:Active - Retrospective Authorization; Requested for:[id number]; Overweight with body mass index (BMI) of 26 to 26.9 in adult Healthy Weight Tips; Status:Complete - Retrospective Authorization; Done: [id number] Some eating tips that can help you lose weight.; Status:Complete - Retrospective Authorization; Done: [id number] SocHx: Never a smoker Tobacco Use Screening; Status:Complete; Done: [id number] Patient Instructions Please bring all medicines, vitamins, [...] She has a history of prior inferior [place], prior PCI with subsequent three-vessel CABG and [...] CHEST PAIN.CALL 911 IF PAIN PERSISTS. Nyamyc [id number] UNIT/GM External Powderapply topically to affected area [...] no s (more content not included)... Normal [employer] Tobacco Screening.on Adult depression screening assessment No [facility] y 250 DO Work Phone: Fall risk assessment a) No falls within the last year [facility] [place] y 250 DO Work Phone: Tobacco use status [facility] b) No [facility] y 250 DO Work Phone: MRI [...] Normal [facility] Resolution Agent Tobacco Screening.on 021 Tobacco use status [facility] b) No [facility] [facility] 250 DO Work Phone: Vital Signs Date Time Vital Sign Value Performing Clinician Facility 05-15-2025 11:45-0400 Body height 160 cm Raji RINALDI Work Phone: [facility] 05-15-2025 11:45-0400 Body mass index (BMI) [Ratio] 30.82 kg/m2 Raji RINALDI Work Phone: [facility] 05-15-2025 11:45-0400 Body weight 78.93 kg Raji RINALDI Work Phone: [facility] 09-05-2024 09:53-0500 Body height 160 cm Celso Garibay DO Work Phone: [facility] 09-05-2024 09:53-0500 Body mass index (BMI) [Ratio] 30.11 kg/m2 Celso Garibay DO Work Phone: [facility] 09-05-2024 09:53-0500 Body weight 77.11 kg Celso Garibay DO Work Phone: [facility] 09-05-2024 09:53-0500 Diastolic blood pressure 80 mm[Hg] Celso Garibay DO Work Phone: [facility] 09-05-2024 09:53-0500 Heart rate 66 /min Celso Garibay DO Work Phone: [facility] 09-05-2024 09:53-0500 Systolic blood pressure 118 mm[Hg] Celso Garibay DO Work Phone: [facility] 08-19-2024 01:03-0500 Diastolic blood pressure 69 mm[Hg] Ashley Grigsby MD Work Phone: [facility] 08-19-2024 01:03-0500 Heart rate 60 /min Ashley Grigsby MD Work Phone: [facility] 08-19-2024 01:03-0500 Respiratory rate 20 /min Ashley Grigsby MD Work Phone: [facility] 08-19-2024 01:03-0500 SaO2% (BldA) [Mass fraction] 96 % Ashley Grigsby MD Work Phone: [facility] 08-19-2024 01:03-0500 Systolic blood pressure 130 mm[Hg] Ashley Grigsby MD Work Phone: [facility] 08-18-2024 20:55-0500 Body height 160.02 cm Ashley Grigsby MD Work Phone: [facility] 08-18-2024 20:55-0500 Body temperature 97.4 [degF] Ashley Grigsby MD Work Phone: [facility] 08-18-2024 20:55-0500 Body weight 78.5 kg Ashley Grigsby MD Work Phone: [facility] 08-13-2024 12:21-0500 Body height 160 cm Celso Garibay DO Work Phone: [facility] 08-13-2024 12:21-0500 Body mass index (BMI) [Ratio] 30.47 kg/m2 Celso Garibay DO Work Phone: [facility] 08-13-2024 12:21-0500 Body weight 78.02 kg Celso Garibay DO Work Phone: [facility] 08-13-2024 12:21-0500 Diastolic blood pressure 94 mm[Hg] Celso Garibay DO Work Phone: [facility] 08-13-2024 12:21-0500 Heart rate 76 /min Celso Garibay DO Work Phone: [facility] 08-13-2024 12:21-0500 Systolic blood pressure 138 mm[Hg] Celso Garibay DO Work Phone: [facility] 08-05-2024 11:08-0500 Blood Pressure Location [place] [facility] 08-05-2024 11:08-0500 Body temperature 98.6 [degF] [place] [facility] 08-05-2024 11:08-0500 Diastolic blood pressure 80 mm[Hg] [place] [facility] 08-05-2024 11:08-0500 Heart rate 68 /min [place] [facility] 08-05-2024 11:08-0500 Respiratory rate 16 /min [place] [facility] 08-05-2024 11:08-0500 Systolic blood pressure 131 mm[Hg] [place] [facility] 04-10-2024 15:08-0400 Blood Pressure Location [place] [facility] 04-10-2024 15:08-0400 Diastolic blood pressure 80 mm[Hg] [place] [facility] 04-10-2024 15:08-0400 Heart rate 75 /min JENNIFER MARTINO [facility] 04-10-2024 15:08-0400 Respiratory rate 16 /min JENNIFER MARTINO [facility] 04-10-2024 15:08-0400 Systolic blood pressure 131 mm[Hg] JENNIFER MATRINO [facility] 02-29-2024 11:15-0400 Body height 160 cm [facility] 02-29-2024 11:15-0400 Body mass index (BMI) [Ratio] 29.58 kg/m2 [facility] 02-29-2024 11:15-0400 Body weight 75.[address] 01-17-2024 16:03-0400 Body height 161.3 cm Stephanie Berger MD PhD Work Phone: [facility] 01-17-2024 16:03-0400 Body mass index (BMI) [Ratio] 30.16 kg/m2 Stephanie Berger MD PhD Work Phone: [facility] 01-17-2024 16:03-0400 Body weight 78.47 kg Stephanie Berger MD PhD Work Phone: [facility] 08-14-2023 15:29-0500 Body height 161.3 cm Celso Garibay DO Work Phone: [facility] 08-14-2023 15:29-0500 Body mass index (BMI) [Ratio] 28.07 kg/m2 Celso Garibay DO Work Phone: [facility] 08-14-2023 15:29-0500 Body weight 73.03 kg Celso Garibay DO Work Phone: [facility] 08-14-2023 15:29-0500 Diastolic blood pressure 80 mm[Hg] Celso Garibay DO Work Phone: [facility] 08-14-2023 15:29-0500 Heart rate 56 /min Celso Garibay DO Work Phone: [facility] 08-14-2023 15:29-0500 Systolic blood pressure 138 mm[Hg] Celso Garibay DO Work Phone: [facility] 06-18-2023 15:15-0400 Diastolic blood pressure 78 mm[Hg] Gaby Tello DO Work Phone: [employer] 06-18-2023 15:15-0400 Heart rate 70 /min Gaby Tello DO Work Phone: [employer] 06-18-2023 15:15-0400 Respiratory rate 18 /min Gaby Tello DO Work Phone: [employer] 06-18-2023 15:15-0400 SaO2% (BldA) [Mass fraction] 96 % Gaby Tello DO Work Phone: [employer] 06-18-2023 15:15-0400 Systolic blood pressure 173 mm[Hg] Gaby Tello DO Work Phone: [employer] 06-18-2023 14:36-0400 Body temperature 97 [degF] Gaby Novoag DO Work Phone: [employer] 06-18-2023 13:30-0400 Body height 160 cm Gaby Novoag DO Work Phone: [employer] 06-18-2023 13:30-0400 Body mass index (BMI) [Ratio] 27.03 kg/m2 Gayb Novoag DO Work Phone: [employer] 06-18-2023 13:30-0400 Body weight 69.22 kg Gaby Novoag DO Work Phone: [employer] 11-02-2022 15:02-0500 Diastolic blood pressure 84 mm[Hg] MD Ashley Grigsby Work Phone: [facility] 11-02-2022 15:02-0500 Heart rate 78 /min MD Ashley Grigsby Work Phone: [facility] 11-02-2022 15:02-0500 Respiratory rate 18 /min MD Ashley Grigsby Work Phone: [facility] 11-02-2022 15:02-0500 SaO2% (BldA) [Mass fraction] 100 % MD Ashley Grigsby Work Phone: [facility] 11-02-2022 15:02-0500 Systolic blood pressure 161 mm[Hg] MD Ashley Grigsby Work Phone: [facility] 11-02-2022 13:20-0500 Body height 160.02 cm MD Ashley Grigsby Work Phone: [facility] 11-02-2022 13:20-0500 Body temperature 98.2 [degF] MD Ashley Grigsby Work Phone: [facility] 11-02-2022 13:20-0500 Body weight 60.78 kg MD Ashley Grigsby Work Phone: [facility] 11-01-2022 13:26-0500 Diastolic blood pressure 61 mm[Hg] MD Ashley Grigsby Work Phone: [facility] 11-01-2022 13:26-0500 Heart rate 59 /min MD Ashley Grigsby Work Phone: [facility] 11-01-2022 13:26-0500 Respiratory rate 20 /min MD Ashley Grigsby Work Phone: [facility] 11-01-2022 13:26-0500 SaO2% (BldA) [Mass fraction] 99 % MD Ashley Grigsby Work Phone: [facility] 11-01-2022 13:26-0500 Systolic blood pressure 124 mm[Hg] MD Ashley Grigsby Work Phone: [facility] 11-01-2022 10:53-0500 Body height 160.02 cm MD Ashley Grigsby Work Phone: [facility] 11-01-2022 10:53-0500 Body temperature 97.7 [degF] MD Ashley Grigsby Work Phone: [facility] 11-01-2022 10:53-0500 Body weight 61.68 kg MD Ashley Grigsby Work Phone: [facility] 10-24-2022 15:45-0500 Body height 159.38 cm Imad Asaad Other [facility] Other 10-24-2022 15:45-0500 Body mass index (BMI) [Ratio] 24.28 kg/m2 Imad Asaad Other [facility] Other 10-24-2022 15:45-0500 Body weight 61.69 kg Imad Asaad Other [facility] Other 10-24-2022 15:45-0500 Diastolic blood pressure 94 mm[Hg] Imad Asaad Other [facility] Other 10-24-2022 15:45-0500 Systolic blood pressure 133 mm[Hg] Imad Asaad Other [facility] Other 09-19-2022 00:00-0500 34 1 Ashley M Hoy Work Phone: [facility] DO Work Phone: Comment on above: [facility] 08-15-2022 15:23-0500 Body height 160.02 cm Ashley M Hoy Work Phone: [facility] DO Work Phone: 08-15-2022 15:23-0500 Body mass index (BMI) [Ratio] 26.22 kg/m2 Ashley Tyree Hoy Work Phone: [facility] DO Work Phone: 08-15-2022 15:23-0500 Body surface area Derived from formula 1.7 m2 Ashley Tyree Hoy Work Phone: [facility] DO Work Phone: 08-15-2022 15:23-0500 Body weight 67.13 kg Ashley Tyree Hoy Work Phone: [facility] DO Work Phone: 08-15-2022 15:23-0500 Diastolic blood pressure 82 mm[Hg] Ashley Tyree Hoy Work Phone: [facility] DO Work Phone: 08-15-2022 15:23-0500 Heart rate 80 /min Ashley Tyree Hoy Work Phone: [facility] DO Work Phone: 08-15-2022 15:23-0500 Systolic blood pressure 132 mm[Hg] Ashley Tyree Hoy Work Phone: [facility] DO Work Phone: 06-02-2022 08:12-0400 Blood Pressure Location Santiago CARRILLO [facility] 06-02-2022 08:12-0400 Diastolic blood pressure 86 mm[Hg] Santiago CARRILLO [facility] 06-02-2022 08:12-0400 Heart rate 60 /min Santiago CARRILLO [facility] 06-02-2022 08:12-0400 Respiratory rate 16 /min Santiago CARRILLO [facility] 06-02-2022 08:12-0400 Systolic blood pressure 144 mm[Hg] Santiago CARRILLO [facility] 08-17-2021 09:47-0500 Body height 160.02 cm Ashley M Hoy Work Phone: [facility] DO Work Phone: 08-17-2021 09:47-0500 Body mass index (BMI) [Ratio] 25.01 kg/m2 Ashley M Hoy Work Phone: [facility] DO Work Phone: 08-17-2021 09:47-0500 Body surface area Derived from formula 1.67 m2 Ashley M Hoy Work Phone: [facility] DO Work Phone: 08-17-2021 09:47-0500 Body weight 64.05 kg Ashley M Hoy Work Phone: [facility] DO Work Phone: 08-17-2021 09:47-0500 Diastolic blood pressure 86 mm[Hg] Ashley M Hoy Work Phone: [facility] DO Work Phone: 08-17-2021 09:47-0500 Heart rate 72 /min Ashley M Hoy Work Phone: [facility] DO Work Phone: 08-17-2021 09:47-0500 Systolic blood pressure 134 mm[Hg] Ashley M Hoy Work Phone: [facility] DO Work Phone: Encounters Encounter Date Encounter Type Care Provider Facility Start: 06-23-2025 End: 06-23-2025 Ruben Sinha DO Work Phone: [facility] Start: 06-23-2025 End: 06-23-2025 Bamboo flowsheet Bridgett Soo Stanleytito DO Work Phone: [facility] Start: 06-23-2025 End: 06-23-2025 ambulatory Fawad BRIDGETT Soo SINHA Not Available Start: 06-23-2025 End: 06-23-2025 Office outpatient visit 15 minutes JrFawad Sarmiento Soo Stanleytito DO Work Phone: [facility] Comment on above: Tendonitis of wrist, right; Right wrist pain Start: 06-16-2025 End: 06-16-2025 ambulatory BRIDGETT GONZALEZ Not Available Start: 06-02-2025 End: 06-02-2025 Bamboo flowsheet JrFawad Bridgett Soo Stanleytito DO Work Phone: [facility] Start: 06-02-2025 End: 06-02-2025 Bamboo flowsheet Bridgett Soo Stanleytito DO Work Phone: [facility] Start: 06-02-2025 End: 06-02-2025 Office outpatient visit 15 minutes JrFawad Angeltito DO Work Phone: [facility] Comment on above: Chronic pain of righ t wrist Start: 06-02-2025 End: 06-02-2025 ambulatory BRIDGETT GONZALEZ Not Available Start: 05-27-2025 End: 05-27-2025 Patient encounter procedure Rae Louie MD Work Phone: [facility] 111 Comment on above: Numbness (Primary Dx ); Paresthesias; Carpal tunnel syndrome, left Start: 05-27-2025 End: 05-27-2025 ambulatory RAE LOUIE Not Available Start: 05-15-2025 End: 05-15-2025 Bamboo flowsheet Raji RINALDI Work Phone: [facility] Start: 05-15-2025 End: 05-15-2025 Bamboo flowsheet Raji Byrd PA Work Phone: [facility] Start: 05-15-2025 End: 05-15-2025 ambulatory RAJI BYRD Not Available Start: 05-15-2025 End: 05-15-2025 Office outpatient visit 15 minutes Raji Byrd PA Work Phone: [facility] Comment on above: Right wrist pain (Pr imary Dx); Arm weakness; Numbness; Arm pain, right; Ulnar neuropathy of right upper extremity Start: 05-08-2025 End: 05-08-2025 ambulatory [facility] Start: 01-30-2025 End: 01-30-2025 ambulatory [facility] Start: 01-17-2025 End: 01-17-2025 ambulatory [facility] Start: 01-09-2025 End: 01-09-2025 ambulatory [facility] Start: 12-31-2024 End: 12-31-2024 ambulatory [facility] Start: 12-12-2024 End: 12-12-2024 ambulatory [facility] Start: 11-26-2024 End: 11-26-2024 Bamboo flowsheet Raji RINALDI Work Phone: [facility] Start: 11-26-2024 End: 11-26-2024 Bamboo flowsheet Raji yBrd PA Work Phone: [facility] Start: 11-26-2024 End: 11-26-2024 Office outpatient visit 15 minutes Raji RINALDI Work Phone: [facility] Comment on above: Acute pain of right wrist (Primary Dx); Tendonitis of wrist, right Start: 11-26-2024 End: 11-26-2024 ambulatory RAJI BYRD Not Available Start: 10-11-2024 End: 10-11-2024 ambulatory RADHA Vann FIONA [facility] Start: 09-05-2024 End: 09-05-2024 ambulatory [facility] Ambulatory Start: 09-05-2024 End: 09-05-2024 Transitional care manage srvc 14 day discharge Celso Garibay DO Work Phone: [facility] Comment on above: Atherosclerosis of c oronary artery bypass graft of [place] heart without angina pectoris; S/P PTCA (percutaneous transluminal coronary angioplasty); History of coronary artery bypass graft; Ischemic cardiomyopathy; Essential hypertension; Mixed hyperlipidemia; BMI 30.0-30.9,adult; Statin intolerance Start: 08-20-2024 End: 08-22-2024 Evaluation and management of inpatient Donis Arroyo Facility:[facility] Start: 08-18-2024 Evaluation and management of inpatient Ashley Grigsby MD Work Phone: [facility] [place] [facility] Work Phone: Start: 08-18-2024 observation encounter Ashley Grigsby MD Work Phone: [facility] Work Phone: Start: 08-13-2024 End: 08-13-2024 ambulatory [facility] Ambulatory Start: 08-13-2024 End: 08-13-2024 Office outpatient visit 25 minutes Celso Cintrondon DO Work Phone: [facility] Comment on above: Atherosclerosis of c oronary artery of [place] heart without angina pectoris, unspecified vessel or lesion type; History of coronary artery bypass graft; Essential hypertension, benign; Hyperlipidemia, unspecified hyperlipidemia type; Acute pancreatitis, unspecified complication status, unspecified pancreatitis type ([facility]) Start: 08-05-2024 End: 08-05-2024 ambulatory GENTRY-C JENNIFER MARTINO Facility:[facility] Start: 08-05-2024 End: 08-05-2024 Patient encounter procedure JENNIFER MARTINO [facility] Start: 04-10-2024 End: 04-10-2024 ambulatory GENTRY-Soo MARTINO Facility:[facility] Start: 04-10-2024 End: 04-10-2024 Patient encounter procedure JENNIFER MARTINO [facility] Start: 03-11-2024 End: 03-11-2024 ambulatory PA-C JENNIFER MARTINO Facility:[facility] Start: 03-11-2024 End: 03-11-2024 Patient encounter procedure JENNIFER MARTINO [facility] Start: 03-07-2024 End: 03-07-2024 Evaluation and management of inpatient [facility] Start: 03-06-2024 End: 03-07-2024 Evaluation and management of inpatient [facility] Start: 03-06-2024 End: 03-06-2024 Evaluation and management of inpatient [facility] Start: 02-29-2024 End: 02-29-2024 Evaluation and management of inpatient [facility] Start: 02-29-2024 End: 02-29-2024 Admission to [facility] Phone Call Provider 4 [facility] Pre-Admission Clinic On [facility] Start: 02-14-2024 End: 02-14-2024 Orders Only Stephanie Berger MD PhD Work Phone: [facility] Comment on above: Xerostomia (Primary Dx) Start: 01-17-2024 End: 01-17-2024 ambulatory STEPHANIE BERGER [facility] Start: 01-17-2024 End: 01-17-2024 Office outpatient visit 15 minutes Stephanie Berger MD PhD Work Phone: [facility] Comment on above: Dry nose (Primary Dx ); Xerostomia; Allergic rhinitis, unspecified seasonality, unspecified trigger Start: 08-14-2023 End: 08-14-2023 Office outpatient visit 15 minutes Celso Garibay DO Work Phone: [facility] Comment on above: Atherosclerosis of c oronary artery of [place] heart without angina pectoris, unspecified vessel or lesion type; History of coronary artery bypass graft; Ischemic cardiomyopathy; Essential hypertension, benign Start: 06-18-2023 End: 06-18-2023 [facility] Start: 06-18-2023 End: 06-18-2023 Subsequent hospital visit by physician Gaby Tello DO Work Phone: [facility] Comment on above: Post-menopausal blee ding; Inclusion cyst Start: 05-24-2023 Rx Renewal Ashley [facility] Work Phone: Start: 05-17-2023 Patient encounter procedure Ashley Grigsby Work Phone: [facility] 250 DO Work Phone: Start: 05-15-2023 ambulatory ASHLEY GRIGSBY [facility] Start: 12-12-2022 End: 12-12-2022 ambulatory MD Ashley Grigsby Work Phone: [facility] Work Phone: Start: 12-12-2022 End: 12-12-2022 Patient encounter procedure MD Ashley Grigsby Work Phone: [facility] Work Phone: Start: 11-20-2022 End: 11-20-2022 ambulatory Imad Asaad Other [facility] Other Start: 11-20-2022 Telephone encounter Imad Asaad [facility] Start: 11-10-2022 End: 11-10-2022 Patient encounter procedure MD Ashley Grigsby Work Phone: [facility] [place] Work Phone: Start: 11-02-2022 End: 11-02-2022 Admission to same day surgery center MD Ashley Grigsby Work Phone: [facility] Work Phone: Start: 11-02-2022 End: 11-02-2022 ambulatory MD Ashley Grigsby Work Phone: [facility] Work Phone: Start: 11-01-2022 Telephone encounter Imad Asaad [facility] Start: 11-01-2022 End: 11-01-2022 Admission to same day surgery center MD Ashley Grigsby Work Phone: [facility] Work Phone: Start: 11-01-2022 End: 11-01-2022 ambulatory MD Ashley Grigsby Work Phone: [facility] Work Phone: Start: 10-24-2022 End: 10-24-2022 ambulatory Imad Asaad Other [facility] Other Start: 10-24-2022 [facility] visit new patient Imad Asaad [facility] Start: 10-16-2022 End: 10-17-[address] ASHLEY GRIGSBY Facility:[facility] Start: 10-09-2022 End: 10-10-[address] ASHLEY GRIGSBY Facility:[facility] Start: 10-05-2022 Rx Renewal Ashley Grigsby Work Phone: [facility] 250 DO Work Phone: Start: 10-04-2022 End: 10-06-[address] ASHLEY GRIGSBY Facility:[facility] Start: 09-19-2022 End: 09-20-[address] DOCTOR PATEL Facility:[facility] Start: 08-15-2022 Office outpatient vi sit 15 minutes Ashley Grigsby Work Phone: [facility] 250 DO Work Phone: Start: 08-15-2022 Patient encounter procedure Ashley Grigsby Work Phone: [facility] 250 DO Work Phone: Start: 06-02-2022 End: 06-02-2022 Patient encounter procedure Santiago Guzman LORENA [facility] Start: 05-31-2022 Rx Renewal Ashley Grigsby Work Phone: [facility] 250 DO Work Phone: Start: 02-07-2022 End: 02-07-2022 Patient encounter procedure Ashley Grigsby MD Work Phone: [facility] Start: 02-07-2022 End: 02-07-2022 Subsequent hospital visit by physician Ashley Grigsby MD Work Phone: [facility] Comment on above: Women's annual routi ne gynecological examination Start: 11-21-2021 Rx Renewal Ashley Grigsby Work Phone: [facility] 250 DO Work Phone: Start: 08-17-2021 Office outpatient vi sit 15 minutes Ashley Grigsby Work Phone: [facility] 250 DO Work Phone: Start: 08-19-2019 [...] Work Phone: Start: 05-08-2025 Follow-up visit Follow-up CHANUCEY KIMBLE Start: 11-26-2024 Radex wrist 2 views [...] hernia Pa jdlatrice CARRILLO Total colonoscopy Ashley Grisgby Work Phone: Plan of Treatment Date Care Activity Detail Author Start: 11-02-2032 Screening for malignant neoplasm of colon [facility] Start: 02-07-2027 Screening for malignant neoplasm of cervix [facility] Start: 08-18-2025 End: 08-18-2025 Patient encounter procedure 08/18/2025 11:20 AM EST Office Visit [facility] [address] [facility] [address] [place] [address] Celso Garibay DO [address] [facility] [address] [place] [address] [facility] Start: 08-04-2025 End: 08-04-2025 Patient encounter procedure 08/04/2025 10:45 AM EST Office Visit [facility] [place] [place] [address] Jr. Bridgett Sinha, DO [address] [facility] [address] [place] [address] [facility] Start: 08-03-2025 End: 08-13-2025 Alanine aminotransferase [Enzymatic activity/volume] in Serum or Plasma by With P-5'-P Alanine Aminotransferase Lab Routine Hyperlipidemia, unspecified hyperlipidemia type Expected: 08/03/2025 (Approximate), Expires: 08/13/2025 [facility] Service Area Work Phone: Comment on above: Expected: 08/03/2025 (Approximate), Expi res: 08/13/2025 Start: 08-03-2025 End: 08-13-2025 Aspartate aminotransferase [Enzymatic activity/volume] in Serum or Plasma by With P-5'-P Aspartate Aminotransferase Lab Routine Hyperlipidemia, unspecified hyperlipidemia type Expected: 08/03/2025 (Approximate), Expires: 08/13/[address] [facility] Work Phone: Comment on above: Expected: 08/03/2025 (Approximate), Expi res: 08/13/2025 Start: 08-03-2025 End: 08-13-2025 Lipid 1996 panel - Serum or Plasma Lipid Panel Lab Routine Hyperlipidemia, unspecified hyperlipidemia type Expected: 08/03/2025 (Approximate), Expires: 08/13/[address] [facility] Work Phone: Comment on above: Expected: 08/03/2025 (Approximate), Expi res: 08/13/2025 Start: 07-14-2025 End: 07-14-2025 ambulatory 07/14/2025 5:00 PM EDT Evaluation [facility] [address] [place] [phone] Kayode Francois, PT [address] [facility] [place] [address] [facility] Start: 06-23-2025 End: 06-23-2025 Patient encounter procedure 06/23/2025 11:00 AM EDT Office Visit [facility] [address] [place] [phone] Jr. Bridgett Sinha, [address] [facility] [address] [place] [address] [facility] Start: 06-02-2025 End: 06-02-2026 MR Wrist - right WO contrast MR wrist right wo IV cont rast Imaging Routine Chronic pain of right wrist Expected: 06/02/2025 (Approximate), Expires: 06/02/2026 [facility] Work Phone: Comment on above: Expected: 06/02/2025 (Approximate), Expi res: 06/02/2026 Start: 06-02-2025 End: 06-02-2025 Patient encounter procedure [facility] Comment on above: Arrived Start: 06-01-2025 Influenza vaccination Influenza Vaccine (#1) [facility] Start: 05-15-2025 End: 05-15-2026 EMG AND NERVE CONDUCTION STUDY EMG AND NERVE CONDUCTIO N STUDY Neurology Routine Arm weakness Numbness Arm pain, right Ulnar neuropathy of right upper extremity Expected: 05/15/2025 (Approximate), Expires: 05/15/2026 [facility] Work Phone: Comment on above: Expected: 05/15/2025 (Approximate), Expi res: 05/15/2026 Start: 03-17-2025 End: 03-17-2025 Patient encounter procedure 03/17/2025 2:40 PM EDT Off ice Visit [facility] [address] [facility] [address] [place] [address] Celso Garibay DO [address] [facility] [address] [place] [address] [facility] Start: 02-28-2025 Adult BMI Screening Adult BMI Screening [facility] Start: 02-07-2025 Screening for malignant neoplasm of cervix [facility] Start: 01-16-2025 Adult BMI Screening Adult BMI Screening [facility] Start: 01-16-2025 Tobacco Screening Tobacco Screening [facility] Start: 01-15-2025 End: 01-15-2025 Patient encounter procedure 01/15/2025 4:00 PM EDT Off ice Visit [facility] [address] [facility] [place] [phone] Stephanie Berger MD PhD [address] [facility] [address] [place] [address] [facility] Start: 11-26-2024 End: 11-26-2024 Patient encounter procedure 11/26/2024 1:00 PM EST Off ice Visit [facility] [address] [place] [phone] Raji Byrd PA [address] [place] [address] [address] [place] [address] Acute pain of right wrist (Primary Dx) [facility] Comment on above: Acute pain of right wrist (Primary Dx) Start: 08-19-2024 Screening for malignant neoplasm of cervix [facility] Start: 08-19-2024 [facility] Start: 08-19-2024 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 Start: 08-13-2024 End: 08-13-2024 Patient encounter procedure 08/13/2024 11:30 AM EST Office Visit [facility] [address] [place] [address] Celso Garibay DO [address] [place] [address] [facility] Start: 2024 RSV High Risk: (Elderly (60+) or Population) (1 - Risk 60-74 years 1-dose series) RSV High Risk: (Elderly (60+) or Population) (1 - Risk 60-74 years 1-dose series) [facility] Start: 06-01-2024 COVID-19 Vaccine ( season) COVID-19 Vaccine ( season) [facility] Start: 06-01-2024 Influenza vaccination Influenza Vaccine [facility] Start: 03-06-2024 End: 03-06-2024 Admission to [facility] 03/06/2024 11:30 AM EDT - 03/06/2024 12:45 PM EDT Surgery [facility] [address] [place] [address] Danielle Magallon MD [address] [place] [address] ESOPHAGOGASTRODUODENOSCOPY DIAGNOSTIC [65845 (CPT )] [facility] Comment on above: ESOPHAGOGASTRODUODENOSCOPY DIAGNOSTIC [4 3235 (CPT )] Start: 03-06-2024 End: 03-06-2024 Esophagogastroduodenoscopy transoral diagnostic ESOPHAGOGASTRODUODENOSCOPY DIAGNOSTIC ACUTE RECURRING PANCREATITIS, EPIGASTRIC PAIN 03/06/2024 11:30 AM EDT [facility] Start: 03-06-2024 End: 03-06-2024 Esophagoscopy flexible transoral ultrasound exam ENDOSCOPIC ULTRASOUND UPPER ACUTE RECURRING PANCREATITIS, EPIGASTRIC PAIN 03/06/2024 11:30 AM EDT [facility] Start: 03-06-2024 Subsequent hospital visit by physician 03/06/2024 11:30 AM EDT Hospital Encounter [facility] [address] [facility] [place] [address] Danielle Magallon MD [address] [place] [address] [facility] Start: 02-14-2024 Depression Screen Depression Screen [facility] Start: 02-12-2024 End: 08-14-2024 Alanine aminotransferase [Enzymatic activity/volume] in Serum or Plasma by With P-5'-P Alanine Aminotransferase Lab Routine History of coronary artery bypass graft Ischemic cardiomyopathy Expected: 02/12/2024 (Approximate), Expires: 08/14/[address] [facility] Work Phone: Comment on above: Expected: 02/12/2024 (Approximate), Expi res: 08/14/2024 Start: 02-12-2024 End: 08-14-2024 Aspartate aminotransferase [Enzymatic activity/volume] in Serum or Plasma by With P-5'-P Aspartate Aminotransferase Lab Routine Atherosclerosis of coronary artery of [place] heart without angina pectoris, unspecified vessel or lesion type Ischemic cardiomyopathy Expected: 02/12/2024 (Approximate), Expires: 08/14/[address] [facility] Work Phone: Comment on above: Expected: 02/12/2024 (Approximate), Expi res: 08/14/2024 Start: 02-12-2024 End: 08-14-2024 Lipid 1996 panel - Serum or Plasma Lipid Panel Lab Routine Atherosclerosis of coronary artery of [place] heart without angina pectoris, unspecified vessel or lesion type Expected: 02/12/2024 (Approximate), Expires: 08/14/2024 [facility] Service [facility] Work Phone: Comment on above: Expected: 02/12/2024 (Approximate), Expi res: 08/14/2024 Start: 08-14-2023 FUV, Provider: Celso Garibay, Status: Julio, Time: 3:00 PM FUV, Provider: Celso Garibay, Status: Julio, Time: 3:00 PM -[facility] 250 DO Work Phone: Start: 07-28-2023 Screening for malignant neoplasm of breast Breast cancer screen [facility] Start: 07-24-2023 Screening for malignant neoplasm of breast Mammogram [facility] Start: 07-03-2023 End: 07-03-2023 Patient encounter procedure 07/03/2023 4:45 PM EDT Off ice Visit [facility] [place] [address] Gaby Phillips, DO [address] [place], [place] [id number] post-op BA 05/16 [facility] Comment on above: post-op BA 05/16 Start: 06-18-2023 End: 06-18-2023 Hysteroscopy bx endometrium&/polypc w/wo d&c DILATATION AND CURETTAGE HYSTEROSCOPY Post-menopausal bleeding Inclusion cyst 06/18/2023 2:01 PM EDT [facility] Start: 06-01-2023 COVID-19 Vaccine () COVID-19 Vaccine () [facility] [facility] Start: 02-13-2023 End: 02-13-2023 Patient encounter procedure 02/13/2023 Office Visit Obstetrics and Gynecology Gaby Phillips, DO [address] [place] [address] [facility] Start: 12-12-2022 [facility] Start: 11-02-2022 [facility] Start: 11-01-2022 [facility] Start: 08-19-2022 Screening for malignant neoplasm of cervix Pap smear [facility] Start: 08-15-2022 FUV, Provider: Celso Garibay, Status: Pen, Time: 3:00 PM FUV, Provider: Celso Garibay, Status: Pen, Time: 3:00 PM [facility] 250 DO Work Phone: Start: 08-03-2022 Lipid panel Lipids [facility] Start: 09-26-2021 COVID-19 Vaccine (4 - Pfizer series) COVID-19 Vaccine (4 - Pfizer series) [facility] Start: 06-01-2019 Influenza vaccination Flu vaccine (#1) [facility] [place], [place] Start: 05-09-2018 Pneumococcal Vaccine: Pediatrics (0 to 5 Years) and At-Risk Patients (6 to 64 Years) (2 - PCV) Pneumococcal Vaccine: Pediatrics (0 to 5 Years) and At-Risk Patients (6 to 64 Years) (2 - PCV) [facility] Start: 05-09-2018 Pneumococcal Vaccine: Pediatrics (0 to 5 Years) and At-Risk Patients (6 to 64 Years) (2 of 2 - PCV) Pneumococcal Vaccine: Pediatrics (0 to 5 Years) and At-Risk Patients (6 to 64 Years) (2 of 2 - PCV) [facility] Start: 2014 Breast cancer screen Breast cancer screen [place], [place] Start: 2014 Colon cancer screen colonoscopy Colon cancer screen colonoscopy [place], [place] Start: 2014 Shingles Vaccine (1 of 2) Shingles Vaccine (1 of 2) [facility] Start: 08-26-2009 MMR Vaccines (1 of 1 - Standard series) MMR Vaccines (1 of 1 - Standard series) [facility] Start: 2009 Screening for malignant neoplasm of colon [facility] Start: 1999 Diabetes screen Diabetes screen [facility] Start: 1986 DTaP/Tdap/Td Vaccines (1 - Tdap) DTaP/Tdap/Td Vaccines (1 - Tdap) [facility] Start: 1985 Cervical cancer screen Cervical cancer screen [place], [place] Start: 1985 Screening for malignant neoplasm of cervix [facility] Start: 1983 DTaP,Tdap and Td Vaccines (1 - Tdap) DTaP,Tdap and Td Vaccines (1 - Tdap) [facility] Start: 1983 DTaP/Tdap/Td vaccine (1 - Tdap) DTaP/Tdap/Td vaccine (1 - Tdap) [facility] Start: 1982 Adult BMI Follow Up Plan Adult BMI Follow Up Plan [facility] Start: 1982 Diabetes mellitus screening Diabetes Screening [facility] Start: 1982 Hepatitis C screening [facility] Start: 1979 HIV screen HIV screen [place], [place] Start: 1979 HIV screening HIV screen [facility] Start: 1976 Depression Screen Depression Screen [facility] Start: 1976 Depression Screening Depression Screening [facility] Start: 1975 DTaP/Tdap/Td vaccine (1 - Tdap) DTaP/Tdap/Td vaccine (1 - Tdap) [place], [place] Start: 1974 Lipid panel Lipids [facility] Start: 1974 Lipid screen Lipid screen [place], [place] Start: 1964 Hepatitis B vaccine (1 of 3 - 3-dose series) Hepatitis B vaccine (1 of 3 - 3-dose series) [facility] Start: 1964 Hepatitis B Vaccines (1 of 3 - 3-dose series) Hepatitis B Vaccines (1 of 3 - 3-dose series) [facility] Start: 1964 Hepatitis C screen Hepatitis C screen [place], [place] Start: 1964 HIV screening HIV Screening [facility] Start: 1964 Lipid panel Lipid Panel [facility] Start: 1964 Screening for malignant neoplasm of colon [facility] Start: 1964 Yearly Adult Physical Yearly Adult Physical [facility] Actin smooth muscle IgG Ab [Units/volume] in Serum [facility] Alpha 1 antitrypsin [Mass/volume] in Serum or Plasma [facility] Alpha 1 antitrypsin phenotyping [Identifier] in Serum or Plasma by Immunofixation [facility] Ceruloplasmin [Mass/ volume] in Serum or Plasma [facility] End: 08-19-2019 Cytopathology procedure, preparation of smear, genital source PAP SMEAR Lab Routine Well female exam with routine gynecological exam 1 Occurrences starting 08/19/2019 until 08/19/2019 [place], [place] Comment on above: 1 Occurrences starting 08/19/2019 until 08/19/2019 End: 02-07-2022 Cytopathology procedure, preparation of smear, genital source PAP SMEAR Lab Routine Women's annual routine gynecological examination 1 Occurrences starting 02/07/2022 until 02/07/2022 [facility] Work Phone: Comment on above: 1 Occurrences starting 02/07/2022 until 02/07/2022 Glucose measurement estimated from glycated hemoglobin [facility] Hepatitis A virus Ab [Presence] in Serum by Immunoassay [facility] Hepatitis B core ant ibody measurement [facility] Hepatitis B virus khanna rface Ab [Presence] in Serum [facility] Hepatitis B virus khanna rface Ag [Presence] in Serum or Plasma by Immunoassay [facility] Hepatitis C virus Ig G Ab [Presence] in Serum or Plasma by Immunoassay [facility] Homogenous nuclear A b pattern [Titer] in Serum [facility] IgG [Mass/volume] in Serum or Plasma [facility] End: 06-18-2023 INITIATE PACU OXYGEN THERAPY PROTOCOL Initiate PACU Oxygen Therapy Protocol Respiratory Care Routine Continuous until discontinued starting 06/18/2023 [employer] Comment on above: Continuous until discontinued starting 0 06/18/2023 Lipoprotein a [Moles /volume] in Serum or Plasma [facility] Mitochondria M2 IgG Ab [Units/volume] in Serum [facility] Nuclear Ab [Titer] in Serum [facility] Oxygen therapy [Mini mum Data Set] Initiate Oxygen Therapy Protocol Respiratory Care Routine As Needed until discontinued starting 06/18/2023 [employer] Comment on above: As Needed until discontinued starting Oxygen therapy [Mini mum Data Set] Initiate Oxygen Therapy Protocol Respiratory Care Routine As Needed until discontinued starting 06/18/2023 [employer] Comment on above: As Needed until discontinued starting Patient Education Hemorrhoids (DC) [facility] Work Phone: End: 06-18-2023 , urine POCT , urine POCT Point of Care Testing Routine One Time for 1 Occurrences starting 06/18/2023 until 06/18/2023 [employer] Comment on above: One Time for 1 Occurrences starting 06/01 until 06/18/2023 Surgical Pathology Surgical Path ology Lab Routine Post-menopausal bleeding Inclusion cyst Release Upon Ordering for 1 Occurrences starting 06/18/2023 [employer] Comment on above: Release Upon Ordering for 1 Occurrences starting 06/18/2023 [facility] Immunizations Immunization Date Immunization Notes Care Provider Fa cility 06-05-2024 influenza virus vacc ine, unspecified formulation Raji RINALDI Work Phone: [facility] 06-01-2024 influenza, unspecifi ed formulation JENNIFER MARTINO [facility] 06-05-2023 influenza virus vacc ine, unspecified formulation Stephanie Berger MD PhD Work Phone: [facility] 06-16-2022 influenza, injectabl e, quadrivalent, preservative free Ashley M Hoy Work Phone: [facility] [employer] 250 DO Work Phone: 06-16-2022 zoster vaccine recombinant Ashley M Hoy Work Phone: [facility] 250 DO Work Phone: 08-01-2021 Pfizer-BioNTech COVI D-19 Vacc 30 MCG/0.3ML Intramuscular Suspension Ashley M Hoy [facility] Work Phone: 06-30-2021 influenza virus vacc ine, unspecified formulation Ashley M Hoy Work Phone: [facility] DO Work Phone: 06-03-2021 Influenza, injectabl e, Madin Renetta Canine Kidney, preservative free, quadrivalent Ashley M Hoy Work Phone: [facility] DO Work Phone: 01-29-2021 Pfizer-BioNTech COVI D-19 Vacc 30 MCG/0.3ML Intramuscular Suspension Ashley M Hoy Work Phone: [facility] DO Work Phone: 01-08-2021 Pfizer-BioNTech COVI D-19 Vacc 30 MCG/0.3ML Intramuscular Suspension Ashley M Hoy Work Phone: [facility] 2020 influenza, injectabl e, quadrivalent, preservative free Ashley M Hoy Work Phone: [facility] DO Work Phone: 07-23-2018 influenza, injectabl e, quadrivalent, preservative free Ashley M Hoy Work Phone: [facility] 250 DO Work Phone: 07-26-2017 Influenza, injectabl e, Madin Renetta Canine Kidney, preservative free, quadrivalent Ashley M Hoy Work Phone: [facility] 250 DO Work Phone: 05-09-2017 pneumococcal polysaccharide vaccine, 23 valent Ashley M Hoy Work Phone: [facility] 250 DO Work Phone: 07-03-2015 influenza, seasonal, injectable, preservative free Ashley M Hoy Work Phone: [facility] 250 DO Work Phone: 06-15-2014 influenza, seasonal, injectable Ashley M Hoy Work Phone: [facility] [employer] 250 DO Work Phone: 07-29-2009 novel influenza-H1N1 -09, preservative-free, injectable Ashley M Hoy Work Phone: [facility] [employer] 250 DO Work Phone: Payers Date Payer Category Payer Self-pay [id number] [phone] [id number] 2022 [facility] [id number] 2022 [facility] [id number] 2022 Unknown 2019 Unknown [employer] [place] xxxxxxxxxxxxxxx 2019-Present [address] [place] [address] xxxxxxxxxxxxxxx [id number] 1964 Unknown [id number] 2.16.840.1.526566.3.579.2.5 93 1964 Unknown [id number] 2.16.840.1.987195.3.579.2.5 93 1964 Unknown [id number] 2.16.840.1.573774.3.579.2.5 93 1964 Unknown [id number] 2.16.840.1.413298.3.579.2.5 93 1964 Unknown [id number] 2.16.840.1.711137.3.579.2.5 93 1964 Unknown [id number] 2.16.840.1.432542.3.579.2.1 73 1964 Unknown [id number] 2.16.840.1.845326.3.579.2.1 75 1964 Unknown [id number] 2.16.840.1.324182.3.579.2.1 286 1964 Unknown [id number] 2.16.840.1.716615.3.579.2.1 286 1964 Unknown [id number] 2.16.840.1.432411.3.579.2.1 286 1964 Unknown [id number] 2.16.840.1.679937.3.579.2.1 286 1964 Unknown [id number] 2.16.840.1.268373.3.579.2.1 286 1964 Unknown [id number] 2.16.840.1.288791.3.579.2.1 286 1964 Unknown [id number] 2.16.840.1.382860.3.579.2.1 286 1964 Unknown [id number] 2.16.840.1.570933.3.579.2.7 27 1964 Unknown [id number] 2.16.840.1.069335.3.579.2.7 27 1964 Unknown [id number] 2.16.840.1.451375.3.579.2.7 27 1964 Unknown [id number] 2.16.840.1.743228.3.579.2.1 244 1964 Unknown [id number] 2.16.840.1.458792.3.579.2.1 244 1964 Unknown [id number] 2.16.840.1.125024.3.579.2.1 286 1964 Unknown [id number] 2.16.840.1.652012.3.579.2.1 286 1964 Unknown [id number] 2.16.840.1.243031.3.579.2.1 259 1964 Unknown [id number] 2.16.840.1.072988.3.579.2.1 259 1964 Unknown [id number] 2.16.840.1.534181.3.579.2.1 259 1964 Unknown [id number] 2.16.840.1.525819.3.579.2.1 259 1964 Unknown [id number] 2.16.840.1.423328.3.579.2.1 259 1964 Unknown [id number] 2.16.840.1.109811.3.579.2.1 259 1964 Unknown [id number] 2.16.840.1.109675.3.579.2.1 259 1964 Unknown [id number] 2.16.840.1.827283.3.579.2.1 259 1959 Unknown [id number] 1959 Unknown [id number] Unknown [id number] 2.16.840.1.986324.3.579.2.5 31 Social History Date Type Detail Facility Start: 08-19-2019 End: 09-13-2023 Tobacco smoking status NHIS Never smoker [place], [place] Start: 08-19-2019 End: 06-23-2025 Alcohol intake Ex-drinker (finding) [facility] Start: 1965 Sex Assigned At Not on file [place] Start: 06-18-2023 End: 06-23-2025 No alcohol use No alcohol use [facility] 250 DO Work Phone: Start: 08-19-2019 End: 09-13-2023 Tobacco use and exposure Smokeless tobacco non-user [facility] Work Phone: Start: 06-18-2023 End: 06-23-2025 Sex Assigned At Female [facility] Start: 1965 Sex Assigned At Female [facility] Patient Health Questionnaire 9 item (PHQ-9) total score [Reported] 0 [facility] Start: 08-14-2023 End: 09-05-2024 Alcohol intake Lifetime non-drinker (finding) [facility] Work Phone: Start: 08-04-2023 End: 09-05-2024 Exposure to SARS-CoV-2 (event) Not sure [facility] Start: 08-19-2024 Sex Female (finding) [facility] Start: 01-17-2024 End: 02-29-2024 Alcoholic beverage intake Current non-drinker of alcohol (finding) [facility] [employer] [facility] Start: 09-12-2023 Gender identity Identifies as female gender (finding) [facility] NEGATED: Highlighted row Denies Caffeine use Denies Caffeine use -[facility] 250 DO Work Phone: Medical Equipment Procedure [...] Tissue Alloderm Nonmesh 2x4cm - Sna - [id number] Start: 09-06-2017 Lens Iol Ultrase rt 17.0d - [id number] - [id number] Start: 11-14-2018 Sinus Implant Propel Mini - Sna - [id number] Start: 01-03-2018 Sinus Implant Propel - Sna - [id number] Start: 01-03-2018 Acrysofiq Restor [id number] Start: 11-05-2018 Goals Date Patient Goal Desired Activity /State Functional Status Date Assessment Result Facility 08-05-2024 Functional Status N/A [facility] 04-10-2024 Functional Status N/A [facility] 06-02-2022 Functional Status N/A [facility] Clinical Notes 06-02-2022 to 06-23-2025 [...] requiring urgent evaluation. documented in this encounter [facility] 06-02-2025 History of Present illness Narrative Images [...] IV contrast MRI RT wrist w/o at [facility]. Orbits if needed. Please contact [...] requiring urgent evaluation. documented in this encounter [facility] 05-27-2025 History of Present illness Narrative [facility] Patient: Jose Alberto Saleem [address], [address] , Sex: 1965, Male [place] [id number] Height: 160 cm Ref Phys: Byrd fax [...] Doub=doublet; Fasc=fasciculation; FFE=full for effort; Fib=fibrillation; Myokym=myokymia; [place]=myotonic potential; N,0=normal; NR=no response; Polyph=polyphasia; Pos=positive [sharp] [...] or mononeuritis multiplex. Rae Louie M.D. Diplomate, [place] [employer] Psychiatry and Neurology (neurology, epilepsy, sleep medicine) Diplomate, [place] Board of Clinical Neurophysiology Diplomate, [place] Board of Preventive Medicine (clinical informatics) . documented in this encounter [facility] 05-19-2025 Note Called patient today to let [...] dosage depending on her snack, verifies understanding. [facility] 05-15-2025 History of Present illness Narrative [...] her hand tightly in a fist. 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 She has had prior carpal [...] requiring urgent evaluation. Visit was preformed using [employer]-military pilot speech recognition. documented in this encounter [facility] 05-14-2025 Note Called patient to fo llow [...] Rivera in the clinic and Dr. Watson. [facility] 05-08-2025 Note Attestation signed by Chauncey Kimble MD at 05/08/2025 4:15 PM I personally saw the patient with the resident/fellow on the same day of service. I discussed the findings and therapeutic plan with the resident/fellow and with the patient. I agree with the documentation. [facility] Gastroenterology Follow-Up Patient Visit CHIEF COMPLAINT No [...] B12/Folate/Iron studies: Lab Results Component Value Date [id number] 1,862 (H) 02/27/2024 FOLATE 39.0 02/27/2024 IRON [...] 2.02 02/27/2024 Pancreatiti (more content not included)... [facility] 01-09-2025 Note Attestation signed by Chauncey Kimble MD at 01/10/2025 8:31 AM I personally saw the patient with the resident/fellow on the same day of service. I discussed the findings and therapeutic plan with the resident/fellow and with the patient. I agree with the documentation. [facility] Gastroenterology New Patient Visit - History & Physical CHIEF COMPLAINT Chief Complaint Patient presents with Follow-up MRI follow up and seen at [facility] and in hospital for 1 day. [...] on for which she was admitted at [facility] and was management symptomatically. Patient reported [...] Plavix, baby aspirin, amlodipine, and a PRN [place] for pain. Of note, she has a [...] which were ordered at the outside facility ([facility]) and remain pending. A HIDA scan may also be pursued for further evaluation. She reports extreme fatigue post-hospitalization, interfering with her work and daily function. She prefers to avoid surgical intervention unless necessary and is open to advanced enteroscopy (e.g., device-assisted ERCP) at tertiary centers ([facility] or [facility]) as a less invasive alternative to laparoscopic-assisted ERCP. Plan includes requesting complete LFTs and pancreatic (more content not included)... [facility] 12-12-2024 Note Attestation signed by Chauncey Kimble MD at 12/12/2024 3:31 PM I personally saw the patient with the resident/fellow on the same day of service. I discussed the findings and therapeutic plan with the resident/fellow and with the patient. I agree with the documentation. [facility] Gastroenterology New Patient Visit - History & [...] on for which she was admitted at [facility] and was management symptomatically. Patient reported [...] healthy appearing mucosa. This was traversed. The [id number]-[id number]-hnrvonf limb was characterized by healthy appearing mucosa. [...] Angina pectoris Atherosclerosis of coronary artery of [place] heart without angina pectoris Cellulitis of right [...] Mother Gretta Hyperlipidemia Father Alexander Hyperlipidemia Brother [place] Heart attack Brother Ray SOCIAL HISTORY: Social History Tobacco Use Smoking status: Never Smokeless tobacco: Never Vaping Use Vaping status: Never Used Substance Use Topics Alcohol use: Never Drug use: Never ALLERGIES: Baclofen; Latex, natural rubber; Penicillins; Sulfa (sulfonamide antibiotics); Rosuvastatin; Sulfamethoxazole-trimethoprim; Fenofibrate; Fenofibrate micronized; Fluvastatin; Levofloxacin; Phenazopyridine; Simvastatin; Trimethoprim; and Tobramycin Current Med (more content not included)... [facility] 11-26-2024 History of Present illness [...] AND FELT A POP 10/08/24- WENT TO [facility]; SENT TO ER XRAYS XRAY RT WRIST TODAY EPIC 11/26/24 XRAY [facility] RT FOREARM 10/11/24 SPLINT DOING [...] xray 10/11/24 (R) Forearm: no acute fracture [facility] Results - Imaging: - X-ray [...] requiring urgent evaluation. documented in this encounter [facility] 09-05-2024 History of Present illness Narrative Subjective Jose Alberto Saleem is a 59 y.o. female Chief Complaint Follow-up 59-year-old female returns following acute coronary syndrome, with subsequent two-vessel intervention of the vein graft to the diagonal branch with long 3.5 x 38 mm Ray stent and [place] distal circumflex for in-stent restenosis with 3 x 18 mm [place] stent. LV function is preserved. WHEELER-LAD remains patent, [place] right coronary vein graft right coronary is chronically occluded (known from the past) and collateralized via left coronary system, and vein graft to the OM 2 is also occluded chronically however [place] circumflex is intact. Patient is otherwise stable [...] Atherosclerosis of coronary artery bypass graft of [place] heart without angina pectoris 2. S/P PTCA [...] discussion and plan. documented in this encounter [facility] Work Phone: 09-05-2024 Instructions Jasmyne [...] be sent through Care Everywhere.Heart Healthy Diet (Danish)documented in this encounter [facility] Work Phone: 08-19-2024 Evaluation note Diagnosis Onset Date Resolution Atypical chest pain acute Novem rocky 2023 11:18pm [facility] Work Phone: 1(490) 315-677011-13-2024 History of Present illness Narrative* Celso Garibay DO - 08/13/2024 11:30 AM EST Subjective Jose Alberto Saleem is a 59 y.o. female Chief Complaint Annual Exam 59-year-old female returns for annual visit, she just got back from [facility] from vacation last evening and [...] has a history of remote CABG, remote [place], remote PCI's before and after her CABG [...] Assessment/Plan 1. Atherosclerosis of coronary artery of coushatta heart without angina pectoris, unspecified vessel or lesion type Follow Up In Cardiology 2. History of coronary artery bypass graft Follow Up In Cardiology 3. Essential hypertension, benign 4. Hyperlipidemia, unspecified hyperlipidemia type 5. Acute pancreatitis, unspecified complication status, unspecified pancreatitis type ([facility]) Scribe Attestation By signing my name below, [...] exam, discussion and plan. documented in this encounterUniversity Hospitals St. [facility] Work Phone: 1(192) 643-902511-13-2024 Instructions* Patient Instructions* Bettie Ugalde LPN - [...] Provided instructions on exercise. documented in this encounterUniversity Hospitals St. [facility] Center Work Phone: 1(935) 917-780111-05-2024 Hospital Discharge instructions Patient Education 08/05/2024 12:20:10 Kidney Stones, Xlvr-ah-Xzvz Kidney Stones Kidney stones are rock-like masses [...] Follow these instructions at home: Medicines Take fcsz-lsy-ydysjqi and prescription medicines only as told by [...] provider. Document Revised: 05/11/2023 Document Reviewed: 05/11/2023 [employer] Patient Education 2023 Telepartner. Follow Up Care 06/06/2024 11:10:21 With:JENNIFER MARTINO PA-C, CARLOS Address: When:1 year [facility] 11-05-2024 NotePatient Education Urology Kidney [...] these instructions at home: Medicines ??? Take vgpo-qvf-blrflqo and prescription medicines only as told by [...] provider. Document Revised: 05/11/2023 Document Reviewed: 05/11/2023 ElseXention Patient Education ? 2023 Telepartner.[facility] 04-10-2024 Hospital Discharge instructions Patient Education 04/10/2024 16:08:23 Kidney Stones, Gucd-nd-Ftju Kidney Stones Kidney stones are rock-like masses [...] Follow these instructions at home: Medicines Take jxie-ajr-euyfmcn and prescription medicines only as told by [...] provider. Document Revised: 05/22/2022 Document Reviewed: 05/22/2022 [employer] Patient Education 2022 Telepartner. Follow Up Care 03/10/2024 08:31:33 With:SALENA REDDY JENNIFER López, URL Address: [address] [place] [address] When:3 months [facility] 07-11-2024 NotePatient Education Urology Kidney Stones [...] these instructions at home: Medicines ? Take fvmz-gvj-mxdsmks and prescription medicines only as told by [...] provider. Document Revised: 05/22/2022 Document Reviewed: 05/22/2022 [employer] Patient Education ? 2022 [employer]partner.[facility] 02-29-2024 Instructions* Pre-Procedure Instructions - Aracely Boyd RN - 02/29/2024 10:00 AM EDT Your surgery/procedure is scheduled at [facility] on 03/06/2024 at 1130 Arrival Time 0930 [facility] Address: [address] [place] [address] in P1 Parking lot located on [facility]. Report to the Entrance B. Check in at the information desk the surgery. The waiting room located on the second floor. If you have any questions prior to surgery, please call Pre-Admission Clinic at [phone] between 7:30 am and 4:30 pm Sunday through Sunday. If you have questions the morning of surgery, please call the Pre-op Department at [phone]. Notify your SURGEON if you develop any [...] would [facility], please call [address] [place] [address] ([phone]). Do not use lotions, creams, powders, perfume, [...] RIGHTS AND RESPONSIBILITIES As a patient at [facility], you have the right to: Receive medical care and be informed of who is taking care of you Be treated with dignity and respect Have a family member/rental representative of choice and your physician notified of your admission Receive information and actively participate in decisions about your care and treatment Refuse care, treatment and services Decide who may provide your support and speak for you Access quaker and spiritual services Participate in ethical issues [...] of hospital charges and payment methods Patient/patient rental representative responsibilities are to: Provide information about [...] RIGHTS AND RESPONSIBILITIES As a patient at [facility], you have the right to: Receive medical care and be informed of who is taking care of you Be treated with dignity and respect Have a family member/rental representative of choice and your physician notified of your admission Receive information and actively participate in decisions about your care and treatment Refuse care, treatment and services Decide who may provide your support and speak for you Access quaker and spiritual services Participate in ethical issues [...] of hospital charges and payment methods Patient/patient rental representative responsibilities are to: Provide information about [...] Control department if you have any questions. [facility]05-31-[facility] Miscellaneous Notes* Pre-Procedure Instructions - Aracely Boyd RN - 02/29/2024 10:00 AM EDT Your surgery/procedure is scheduled at [facility] on 03/06/2024 at 1130 Arrival Time 0930 [facility] Address: [address] [place] [address] in Parking lot located on [facility]. Report to the Entrance B. Check in at the information desk the surgery. The waiting room located on the second floor. If you have any questions prior to surgery, please call Pre-Admission Clinic at [phone] between 7:30 am and 4:30 pm Sunday through Sunday. If you have questions the morning of surgery, please call the Pre-op Department at [phone]. Notify your SURGEON if you develop any [...] like to schedule therapy at a [facility] facility, please call [phone] ([phone]). Do not use lotions, creams, powders, perfume, [...] RIGHTS AND RESPONSIBILITIES As a patient at [facility], you have the right to: Receive medical care and be informed of who is taking care of you Be treated with dignity and respect Have a family member/rental representative of choice and your physician notified of your admission Receive information and actively participate in decisions about your care and treatment Refuse care, treatment and services Decide who may provide your support and speak for you Access quaker and spiritual services Participate in ethical issues [...] of hospital charges and payment methods Patient/patient rental representative responsibilities are to: Provide information about [...] RIGHTS AND RESPONSIBILITIES As a patient at [facility], you have the right to: Receive medical care and be informed of who is taking care of you Be treated with dignity and respect Have a family member/rental representative of choice and your physician notified of your admission Receive information and actively participate in decisions about your care and treatment Refuse care, treatment and services Decide who may provide your support and speak for you Access quaker and spiritual services Participate in ethical issues [...] of hospital charges and payment methods Patient/patient rental representative responsibilities are to: Provide information about [...] you have any questions. documented in this encounterP[facility]04-[facility] History of Present illness Narrative* Stephanie Berger MD PhD - 01/17/2024 4:00 PM EDT [facility] AND TH[facility] [address] [place] [id number] SUBJECTIVE: Patient ID (1965): Jose Alberto Saleem [...] Hypertension Kidney stone Kidney stones Myocardial infarction ([facility]) 2014 5 stents Visual impairment Past Surgical History: Procedure Laterality Date APPENDECTOMY BIOPSY SALIVARY GLAND FS N/A 09/06/2017 Performed by Stephanie Berger MD at [facility] CARPAL TUNNEL RELEASE right CHOLECYSTECTOMY CORONARY ARTERY BYPASS GRAFT x4 ENDOSCOPIC FUNCTIONAL SINUS SURGERY Bilateral 01/03/2018 Performed by Stephanie Berger MD at [facility] ENDOSCOPIC SURGERY SINUS Bilateral 01/03/2018 Performed by Stephanie Berger MD at [facility] EXCISION MASS UPPER EXTREMITY Right 11/19/2019 Performed by Stephanie Morse DO at [facility] HERNIA REPAIR LAPAROSCOPIC GASTRIC BYPASS LITHOTRIPSY OVARIAN CYST REMOVAL PHACO KELMAN I IMPLANT INTRAOCULAR LENS Left 11/14/2018 Performed by Nisha Stoll MD at [facility] PHACO KELMAN I IMPLANT INTRAOCULAR LENS Right 11/05/2018 Performed by Nisha Stoll MD at [facility] RELEASE CARPAL TUNNEL Right 01/11/2022 Performed by Stephanie Morse DO at [facility] RELEASE CARPAL TUNNEL [place] CPT 62828 Left 07/19/2022 Performed by Stephanie Morse DO at [facility] RESECTION SUBMUCOSAL Bilateral 09/06/2017 Performed by Stephanie Berger MD at [facility] SEPTOPLASTY SEPTOPLASTY N/A 09/06/2017 Performed by Stephanie Berger MD at [facility] STENT INSERTION LACRIMAL DUCT EYE Right 09/06/2017 Performed by Stephanie Berger MD at [facility] URETERAL STENT PLACEMENT Family History Problem [...] tablets (6.25 mg total) by mouth daily. jthckmra-qhmr-SY-calcium &mins (THERAGRAN-M) 9 mg iron-400 mcg tablet [...] day. (Patient not taking:Reported on 01/17/2024) sod vbxyp-eadgwn-lckobj bottle (NEILMED SINUS RINSE COMPLETE) packet with [...] this chart were generated using voice recognition [employer] dictation software. Although every effort was made to ensure the accuracy of this automated clerk operator, some errors in clerk operator may have occurred. documented in this encounterP[facility]11-[facility] History of Present illness Narrative* Celso [...] has a history of remote CABG, remote [place], remote PCI's before and after her CABG [...] Assessment/Plan 1. Atherosclerosis of coronary artery of coushatta heart without angina pectoris, unspecified vessel or lesion type 2. History of coronary artery bypass graft 3. Ischemic cardiomyopathy 4. Essential hypertension, benign documented in this encounterUniversity Hospitals St. [facility] Work Phone: 1(739) 594-457211-14-2023 Instructions* Patient Instructions* Ej Braswell MA - [...] time of your visit. documented in this encounterUniversity Hospitals St. [facility] Center Work Phone: 1(669) 892-656609-18-2023 Hospital Discharge instructions* Discharge Instructions* Lissa Ocasio [...] call if excessive. Call the office at [phone] ([place]) [phone] ([place]) for an appointment in 2 weeks. documented in this encounterB[facility] History of Present illness Narrative* Sejal [...] with Dr. Engel. documented in this encounterBON [facility]02-20-2023 Evaluation note* Encounter Date Diagnosis Assessment Notes Treatment Notes Treatment Clinical Notes Nov, Elevated liver function tests (ICD-10 - R94.5) [facility] Other 02-02-2023 [facility] Evaluation note* Encounter Date Diagnosis Assessment Notes Treatment Notes Treatment Clinical Notes Oct, Abdominal pain (ICD-10 - R10.9) Oct, Common bile duct dilatation (ICD-10 - K83.8) Oct, Elevated liver enzymes (ICD-10 - R74.8) Oct, Constipation (ICD-10 - K59.00) Colonoscopy Start Miralax daily after colonoscopy. Titration dosing discussed with patient. Oct, Colon cancer screening (ICD-10 - Z12.11) [facility] Other 01-04-2023 NotePROGRESS NOTE NOTE DATE: 10/04/2022 CHIEF COMPLAINT: Abdominal pain. HISTORY OF PRESENT ILLNESS: The patient is a 57-year-old female with a history of dyslipidemia and gastric bypass surgery, who has been having increasing abdominal pain and flank pain. She was seen yesterday at the [facility] for epigastric and upper abdominal [...] Prophylaxis: Lovenox. DISPOSITION: Home when medically stable.[facility] [id number] Hospital Discharge instructions Patient Education 06/02/2022 08:51:52 Kidney Stones, Iyye-nu-Doja Kidney Stones Kidney stones are rock-like masses [...] Follow these instructions at home: Medicines Take gxdn-rrs-oxrjxci and prescription medicines only as told by [...] Document Reviewed: 02/03/2020 Elsevier Patient Education 2020 [employer] Follow Up Care 05/27/2021 09:10:08 With:LORENA STRAUSS, Santiago Guzman, URL Address: [address] [place] [address]- When: Unknown [facility] evaluation + Plan note Future Appointments Appointment Date:06/01/2023 08:00:00 AM Scheduled Provider:Santiago CARRILLO MD Location:[facility] Appointment Type:URO Office Visit [facility] evaluation + Plan note Future Appointments Appointment Date:04/10/2024 03:00:00 PM Scheduled Provider:JENNIFER MARTINO PA-C Location:[facility] Appointment Type:URO Office Visit [facility] evaluation + Plan note Future Scheduled Tests Radiology* XR Abdomen 1 View 08/05/25 [facility] evaluation note* Diagnosis Women's annual routine gynecological examination documented in this encounter [employer] Work Phone: evalvanwne noteNo assessment information available [facility] Work Phone: Evaluation noteNo InformationNort [employer] Other Evaluation note* Diagnosis Post-menopausal bleeding Postmenopausal bleeding Inclusion cyst Sebaceous cyst documented in this encounter [facility] Viva DengiEvaluation note* Diagnosis Atherosclerosis of coronary artery of coushatta heart without angina pectoris, unspecified vessel or lesion type 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 Ischemic cardiomyopathy Other specified forms of chronic ischemic heart disease Essential hypertension, benign documented in this encounter [facility] Work Phone: Evaluation note* Diagnosis Atherosclerosis of coronary artery of coushatta heart without angina pectoris, unspecified vessel or lesion type 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 Essential hypertension, benign Hyperlipidemia, unspecified hyperlipidemia type Acute pancreatitis, unspecified complication status, unspecified pancreatitis type ([facility]) documented in this encounter [facility] Work Phone: Evaluation note* Diagnosis Atherosclerosis of coronary artery bypass graft of coushatta heart without angina pectoris S/P PTCA (percutaneous transluminal coronary angioplasty) Postsurgical percutaneous transluminal coronary angioplasty status 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 Ischemic cardiomyopathy Other specified forms of chronic ischemic heart disease Essential hypertension Unspecified essential hypertension Mixed hyperlipidemia BMI 30.0-30.9,adult Statin intolerance documented in this encounter [facility] Work Phone: Evaluation note* Diagnosis Dry nose- [...] of wrist, right documented in this encounter [facility]* Diagnosis Right wrist pain- Primary Pain in joint, forearm Arm weakness Other musculoskeletal symptoms referable to limbs Numbness Disturbance of skin sensation Arm pain, right Pain in soft tissues of limb Ulnar neuropathy of right upper extremity documented in this encounter [facility] HealthcareEvaluation note* Diagnosis Numbness- Primary Disturbance of [...] physical note Author Evert Bruno [facility] November 01, 2022 12:40pm Note Date/Time November 01, 2022 1 2:40pm [facility] [address] [place] [address] Gastroenterology H&P Signed Patient: Jose Alberto Saleem MR#: [id number] : 1965 Acct:[id number] Age/Sex: 57 / F Adm Date: 3 Loc: Room: Type: [facility] Attending Dr: Evert Bruno MD [...] signed by Evert Bruno MD> 11/01/22 1240 [facility] Work Phone: History and physical note Author Evert Bruno [facility] November 02, 2022 2:14pm Note Date/Time November 02, 2022 2 :14pm [facility] [address] [place] [address] Gastroenterology H&P Signed Patient: Jose Alberto Saleem MR#: [id number] : 1965 Acct:[id number] Age/Sex: 57 / F Adm Date: 3 Loc: Room: Type: [facility] Attending Dr: Evert Bruno MD [...] signed by Evert Bruno MD> 11/02/22 1414 [facility] Work Phone: History general Narrative - Reported* Type Description Date Medical History impaired fasting glucose Medical History heart disease, [place] stents, CABG Medical History Hypertension Medical History hyperlipidemia 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 Surgical History CABG remote history Surgical History gastric bypass 2018 Surgical History multiple kidney stones removed Surgical History appendectomy Surgical History cyst on ovarian removed Surgical History bilateral carpe tunnel surgery 2021 Surgical History cholecystectomy Hospitalization History see surgical hx [facility] Other Hospital course Narrative No data available for this section [facility] Hospital Discharge instructions Additional Instructions [...] NOT operate machinery such as power tools, Reppifyn mowers, snow blowers, sewing machines, etc. for [...] problems. -Follow up with PCP. -Office number [phone]. [facility] Work Phone: Hospital Discharge instructions [...] NOT operate machinery such as power tools, Reppifyn mowers, snow blowers, sewing machines, etc. for [...] problems. -Follow up with PCP. -Office number [phone]. [facility] Work Phone: Hospital Discharge instructions No data available for this section [facility] InstructionsNot on filedocumented in this encounter [facility] SystemInstructionsNot on filedocumented in this encounter [facility] SystemInstructionsNot on filedocumented in this encounter [facility] SystemProgress note No data available for this section [facility] reason for referral (narrative)* Consultation (Routine) - Authorized Specialty Diagnoses / Procedures Referred By Contac t Referred To Contact Cardiology Diagnoses Atherosclerosis of coronary artery of coushatta heart without angina pectoris, unspecified vessel or lesion type History of coronary artery bypass graft Procedures Follow Up In Cardiology Celso Garibay, [address] [facility] [address] [place] [address] Celso Garibay DO [address] [facility] 2, [facility] [address] [place] [address] Referral ID Status Reason Start Date Expiration Date V isits Requested Visits Authorized [id number] Authorized 08/14/2023 08/13/2024 1 1 [facility] Work Phone: Reason for visit Narrative* Other Medical (Routine) - Closed Specialty Diagnoses / Procedures Referred By Manfred flynn Referred To Contact Neurology Diagnoses Arm weakness Numbness Arm pain, right Ulnar neuropathy of right upper extremity Procedures EMG AND NERVE CONDUCTION STUDY Raji Byrd, [address] [place] [address] Phone: tel: fax: Rae Louie MD [address] [address] Phone: tel: fax: Referral ID Status Reason Start Date Expiration Date Visits Re quested Visits Authorized [id number] Closed 05/15/2025 11/11/2025 1 1 [facility] Healthcare Summary Purpose Family History Unknown [...] Documents on File Type Date Recorded Patient Clinical Trainer Expl anation Advance Directives and Living Will Power of Bobcat Operator Documents on File Type Date Recorded Patient Clinical Trainer Expl anation ACP-Advance Directive ACP-Power of Bobcat Operator Advance Directive Response Recorded Date/ Time [...] She has known history of prior inferior [place], prior stenting, priorthree-vessel CABG, subsequent PCI of [...] adverse reactions to other medications, hypotension. * [place] [employer] is class I * Recommendations, [...] She has a history of prior inferior [place], prior PCI with subsequent three-vessel CABG and [...] She has a history of prior inferior [place], prior PCI with subsequent three-vessel CABG and [...] DATE CREATED AUTHOR AUTHOR'S ORGANIZ ATION 03/26/2018 [facility] DATE CREATED AUTHOR AUTHOR'S ORGANIZ ATION 08/02/2022 [facility] Specialist DATE CREATED AUTHOR AUTHOR'S ORGANIZ ATION 08/17/2022 [facility] DATE CREATED AUTHOR AUTHOR'S ORGANIZ ATION 10/17/2022 [facility] DATE CREATED AUTHOR AUTHOR'S ORGANIZ ATION 06/23/2023 [facility] DATE CREATED AUTHOR AUTHOR'S ORGANIZ ATION 07/16/2023 [facility] DATE CREATED AUTHOR AUTHOR'S ORGANIZ ATION 01/19/2024 [facility] DATE CREATED AUTHOR AUTHOR'S ORGANIZ ATION 03/07/2024 [facility] DATE CREATED AUTHOR AUTHOR'S ORGANIZ ATION 08/06/2024 [facility] DATE CREATED AUTHOR AUTHOR'S ORGANIZ ATION 09/15/2024 [facility] DATE CREATED AUTHOR AUTHOR'S ORGANIZ ATION 10/16/2024 [facility] DATE CREATED AUTHOR AUTHOR'S ORGANIZ ATION 01/22/2025 [facility] DATE CREATED AUTHOR AUTHOR'S ORGANIZ ATION 06/15/2025 [facility] DATE CREATED AUTHOR AUTHOR'S ORGANIZ ATION 06/24/2025 [facility] dical Specialists EPIC Care Teams (unrecognized [...] Active Evert Bruno MD Attending Provider Active Expense Clerk Relationship Specialty Start Date End Date Ashley Grigsby MD [address] [place] [address] PCP - General Family Medicine 08/19/19 Expense Clerk Relationship Specialty Start Date End Date Ashley Grigsby MD [address] [place] [address] PCP - General Family Medicine 08/19/19 Expense Clerk Relationship Specialty Start Date End Date Ashley Grigsby MD [address] [place] [address] PCP - General 08/17/21 Expense Clerk Relationship Specialty Start Date End Date Ashley Grigsby MD [address] [place] [address] PCP - General 08/17/21 Expense Clerk Relationship Specialty Start Date End Date Ashley Grigsby MD [address] [place] [address] PCP - General 08/17/21 Anita Hammonds, glove operatorEngraver Ornamental Design 08/22/24 Expense Clerk Relationship Specialty Start Date End Date Ashley Grigsby MD [address] [place] [address] PCP - General 02/22/17 Expense Clerk Relationship Specialty Start Date End Date Ashley Grigsby MD [address] [place] [address] PCP - General 02/22/17 Expense Clerk Relationship Specialty Start Date End Date Ashley Grigsby MD [address] [place] [address] PCP - General 02/22/17 Expense Clerk Relationship Specialty Start Date End Date Ashley Grigsby MD [address] [place] [facility] [address] PCP - General Family Medicine 09/13/23 Expense Clerk Relationship Specialty Start Date End Date Ashley Grigsby MD [address] [place] [facility] [place] [address] PCP - General Family Medicine 09/13/23 Expense Clerk Relationship Specialty Start Date End Date Ashley Grigsby MD [address] [place] [facility] [place] [address] PCP - General Family Medicine 02/13/25 Expense Clerk Relationship Specialty Start Date End Date Ashley Grigsby MD [address] [place] [facility] [place] [address] PCP - General Family Medicine 02/13/25 Expense Clerk Relationship Specialty Start Date End Date Ashley Grigsby MD [address] [place] [facility] [place] [place] [address] PCP - General Family Medicine 02/13/25 Expense Clerk Relationship Specialty Start Date End Date Ashley Grigsby MD [address] [place] [facility] [place] [place] [address] PCP - General Family Medicine 02/13/25 Expense Clerk Relationship Specialty Start Date End Date Ashley Grigsby MD [address] [place] [facility] [place] [place] [address] PCP - General Family Medicine 02/13/25 Expense Clerk Relationship Specialty Start Date End Date Ashley Grigsby MD [address] [place] [facility] [place] [address] PCP - General Family Medicine 02/13/25 REASON FOR VISIT (unrecogniz ed section and content) Specialty Diagnoses / Procedures Referred By Manfred flynn Referred To Contact Diagnoses Post-menopausal bleeding Inclusion cyst Post-menopausal bleeding [N95.0] Inclusion cyst [L72.0] Procedures HI HYSTEROSCOPY BX ENDOMETRIUM&/POLYPC W/WO D&C HI DESTRUCTION BENIGN LESIONS UP TO 14 DILATATION AND CURETTAGE HYSTEROSCOPY-REMOVAL OF INCLUSION CYST Gaby Phillips, DO [address] [place] [address] [facility] [address] [place] [address] Referral ID Status Reason Start Date Expiration Date Visits Re quested Visits Authorized [id number] 1 1 Reason Comments Annual Exam 1yr Specialty Diagnoses / Procedures Referred By Manfred flynn Referred To Contact Cardiology Diagnoses Atherosclerosis of coronary artery of [place] heart without angina pectoris, unspecified vessel or lesion type History of coronary artery bypass graft Procedures Follow Up In Cardiology Celso Garibay, DO [address] [facility] [address], [address] [address] Phone: tel: fax: Celso Garibay, DO [address] [facility], [facility] [address] [place] [address] Phone: tel: fax: Referral ID Status Reason Start Date Expiration Date V isits Requested Visits Authorized [id number] Authorized 08/14/2023 08/13/2024 1 1 Reason Comments Follow-up [facility] discharge 08/22 Reason Comments Med Refill Reason [...] BE BASED ON THE PRIMARY CLINICAL RECORDS. [facility] [employer] [facility]. provides no warranty or guarantee of the accuracy or completeness of information in this document.
== END 2025-07-16 08:01 | disposition home or self-care (01) ==
LOC: SLEEP 11:19
PROVIDERS: PCP Family Medicine; Visit Provider Psychiatry & Neurology Neurology
DX: G47.33 Obstructive sleep apnea (adult) (pediatric) (principal); G47.11 Idiopathic hypersomnia with long sleep time
CPT/HCPCS: 95805

== ENCOUNTER 2025-07-22 09:58 | Outpatient (OUT) | payer BC, SELFPAY ==
--- OUTSIDE RECORDS SUMMARY | 2025-07-22 10:03 | XMS_ITS | Clinical Summary ---
Author Organization [facility] Address [address] [place] [address] Care Team Providers Care Slot Technician Name Role Phone Ziggy Dejesus MD Primary Care Provider [phone] Allergies Active AllergyReactionsCriticalityNoted DateCommentsLatexAnaphylaxis,Shortness of LeukmfHjlj52/16/2006Fluvastatin Adjbtg7803/14/2006 PT TOLERATES CRESTOR YmmzueafgizTviii04/14/2006Phenazopyridine Hcl03/14/2006Sulfa (Sulfonamide Antibiotics)Hives03/14/2006Fenofibrate DgwtsalvjyOwkpkmyhszi89/22/2009 elevated liver enzymes Ymidqfzeksz45/14/2006 PT TOLERATES CRESTOR Medications MedicationSigDispense QuantityRefillsLast FilledStart DateEnd DateStatus multivitamins(MULTIPLE VITAMINS TAB) Indications:Other and unspecified hyperlipidemiaONE DAILY 0 Active lansoprazole(PREVACID 30 MG CAP) Indications:Other and unspecified hyperlipidemiaTake one(1) tablet two(2) times daily. 0 Active vitamin b complex(VITAMIN B COMPLEX CAP) Indications:Other and unspecified hyperlipidemiaONE DAILY 0 Active potassium chloride(K-DUR 10 MEQ TAB) Indications:Other and unspecified hyperlipidemiaTake one(1) tablet two(2) times daily. 0 Active COENZYME Q10 200 MG CAP Indications:Other and unspecified hyperlipidemiaONE DAILY 0 ctive cetirizine hcl(ZYRTEC 10 MG TAB) Indications:Other and unspecified hyperlipidemiaTake one(1) tablet daily. 0 Active pravastatin sodium(PRAVACHOL 40 MG TAB) Indications:Other and unspecified hyperlipidemiaONE DAILY 0 ctive metoprolol succinate(TOPROL XL 50 MG 24 HR TAB) Indications:Other and unspecified hyperlipidemiaONE DAILY 0 ctive montelukast sodium(SINGULAIR 10 MG TAB) Indications:Other and unspecified hyperlipidemiaONE DAILY 0 Active acetaminophen(TYLENOL EXTRA STRENGTH 500 MG TAB) Indications:Other and unspecified hyperlipidemiaas necessary 0 Active ibuprofen(ADVIL 200 MG TAB) Indications:Other and unspecified hyperlipidemiaas necessary 0 Active furosemide(LASIX 40 MG TAB) Indications:Other and unspecified hyperlipidemiaas necessary 0 Active propoxyphene/acetaminophen(DARVOCET-N 100 100 MG-650 MG TAB) Indications:Other and unspecified hyperlipidemiaevery six hours as needed for ovarian cysts 0 ctive COENZYME Q10 200 MG CAP ONE DAILY 90 ctive orlistat(XENICAL 120 MG CAP) Take one(1) tablet three times daily. 90 days supply ctive fenofibric acid(TRILIPIX 135 MG CAP) Indications:Other and unspecified hyperlipidemiaone daily 90 ctive omega-3 acid ethyl esters(LOVAZA 1 GRAM CAP) 2 tablets twice a day 90 days supply ctive omega-3 acid ethyl esters(LOVAZA 1 GRAM CAP) Indications:Other and unspecified hrgfjgyzgnpxjf3zxau twice daily 0 ctive ASPIRIN 325 MG TAB Indications:Other and unspecified hyperlipidemiaONE DAILY 90 ctive lisinopril(PRINIVIL 10 MG TAB) Indications:Other and unspecified hyperlipidemia1/2 tab daily 0 ctive HYDROCHLOROTHIAZIDE 25 MG TAB ONE DAILY 90 ctive niacin(NIASPAN 500 MG TAB) ONE DAILY 90 ctive EXENATIDE 10 MCG/0.04 ML PER DOSE SUB-Q PEN INJECTOR twice a day 3 months ctive needles, insulin disposable(BD INSULIN PEN NEEDLE UF MINI 31 X 3/ ) twice a day 3 months ctive Active Problems ProblemNoted DateDiagnosed DateOther and unspecified qfworyrjfqwmlk45/22/2009 Family History Medical HistoryRelationCommentsCoronary Artery DiseaseFatherCoronary Artery DiseaseMother3 and 4 vessel CABG twiceCoronary Artery DiseasePaternal Uncle 1 Coronary Artery DiseasePaternal Uncle 2RelationStatusCommentsFatherMother Paternal Uncle 1Paternal Uncle 2 Social History Tobacco UseTypesPacks/DayYears UsedDateSmoking Tobacco: NeverAlcohol UseStandard Drinks/WeekCommentsYes0 (1 standard drink = 0.6 oz pure alcohol)special occassionsCommentsNoSex and Gender InformationValueDate RecordedSex Assigned at BirthNot on fileLegal MgaOyiocr84/02/2012 9:48 AM ESTGender Identity Not on fileSexual OrientationNot on fileOccupationIndustryJob Start DateJob End DateRNNot on fileNot on fileNot on file Last Filed Vital Signs Vital SignReadingTime TakenCommentsBlood Gqtpghiv178/70003/24/2010 11:56 AM EDT (from Extended Vitals)Dgkxb092503/24/2010 11:56 AM EDT(from Extended Vitals) Cxojtsbieyf81 ??C (98.6 ??F)03/23/2006 11:00 AM EDTRespiratory Kuck012203/23/2006 11:00 AM EDTOxygen Lmgkihqsws15%03/23/2006 11:00 AM EDTInhaled Oxygen Concentration--Qyqlzh65.7 kg (200 lb)03/24/2010 11:53 AM GJTTyigel224 cm (5' 3 ) 03/24/2010 11:53 AM EDTBody Mass Index35.43003/24/2010 11:53 AM EDT Plan of Treatment Health MaintenanceDue DateLast DoneCommentsAnxiety Ncqlupwzb61/09/1982Depression Mwcdjzing53/09/1982HIV Fdydpilnb25/09/1982Hepatitis C Cuzsnmoet11/09/1982 DTaP,Tdap,Td Vaccine (1 - Tdap)1983Cervical Cancer Elmvycdls84/09/1985 Mammogram Ucwonktjt53/09/2004CT Foillkexjjjb39/09/2009Cologuard (FIT-DNA) 06/09/20099166Kljdxzxdrdz78/09/2009Colorectal Cancer Xtfadmedq67/09/2009Fecal Occult Blood06/09/20091389Owgbjegfqcnrq87/09/2009Diabetes Eanbxlzza55, 03/22/2009, 03/23/2006, Additional history existsLipid Tglrwhwbw32/22/2014 03/22/2009, 03/22/2009, 03/15/2006Pneumococcal Vaccine: 50+ (1 of 1 - PCV) 2014Shingrix Vaccine (1 of 2)2014Covid-19 Vaccine (1 - 2024- season)2025Influenza Vaccine (#1)2025RSV Vaccine (1 - 1-dose 75+ series)2039 Procedures Procedure NamePriorityDate/TimeAssociated DiagnosisCommentsHEMOGLOBIN N4FTptfvvn 03/22/2009 12:34 PM EDT Hyperlipidemia Nec/Nos Impaired Fasting Glucose LIPID PANEL, MSEHPVACsjetjw38/22/2009 12:34 PM EDT Hyperlipidemia Nec/Nos from Last 3 Months or Most Recently Relevant to Health Maintenance Results * (ABNORMAL) LIPID PANEL BASIC (03/22/2009 12:34 PM EDT)ComponentValueRef Range Test MethodAnalysis TimePerformed AtPathologist GltamjmpyXuknugdzbkjs5433(H)30 - 149 mg/dLMER[facility] MAIN LABORATORYComment: Patient may be at risk for acute pancreatitis due to marked hypertriglyceridemia. Cholesterol, Higle379(H)100 - 199 mg/dLMERCY HEALTH [facility] MAIN LABORATORYHDL Enenxrwxvzl78(L)>55 mg/dLPAULDING COUNTY HOSPITAL LABORATORYVLDL CholesterolUnable to calculate due to increased Triglycerides. See LDL-Chol, Direct.6 - 40 mg/dL [facility] MAIN LABORATORYLDL Cholesterol, CalculatedUnable to calculate due to increased Triglycerides. See LDL-Chol, Direct.60 - 129 mg/dLMERCY [facility]ALTH [facility] MAIN LABORATORYFasting Npjq38auoWNRVMFITN CLINIC MAIN LABORATORYTC:HDL Ratio11.84(H)1.00 - 5.00[facility] MAIN LABORATORYLDL:HDL RatioUnable to calculate0.50 - 3.55[facility] MA[facility] LABORATORYNon HDL Qvfhwxwmujt478(H)90 - 159 mg/dLPAULDING COUNTY HOSPITAL LABORATORYSpecimen (Source)Anatomical Location / LateralityCollection Method / VolumeCollection TimeReceived TimeBlood specimen (specimen)BLOOD SPECIMEN / Jaxvjnw5803/22/2009 12:34 PM EDT Narrative Authorizing ProviderResult TypeResult StatusBetjoni Park MDLABORATORYFinal ResultPerforming OrganizationAddressCity/State/ZIP CodePhone Number [facility] [address] [place] [address] * HGB A1C (03/22/2009 12:34 PM EDT)ComponentValueRef RangeTest MethodAnalysis TimePerformed AtPathologist SignatureHemoglobin A1C5.64.0 - 6.0 %[facility] LABORATORYSpecimen (Source)Anatomical Location / Laterality Collection Method / VolumeCollection TimeReceived TimeBlood specimen (specimen)BLOOD SPECIMEN / Xkdjniw5303/22/2009 12:34 PM EDT Narrative Authorizing ProviderResult TypeResult StatusBetjoni Park MDLABORATORYFinal ResultPerforming OrganizationAddressCity/State/ZIP CodePhone Number [facility] [address] [place] [address] from Last 3 Months or Most Recently Relevant to Health Maintenance Insurance * Guarantor: Tiarra Carney TypeRelation to PatientDate of BirthPhone Billing UlmtqwiOrvzcqNsvr1965 [address] [place] [address] Care Teams Team MemberRelationshipSpecialtyStart DateEnd Ziggy Dejesus MD [address] [place] [address] [facility] - General03/15/06
--- OUTSIDE RECORDS SUMMARY | 2025-07-22 10:03 | XMS_ITS | Clinical Summary ---
Author Organization [facility] Address [address], [address] [place] [address] Care Team Providers Care Angle Shearer Name Role Phone Ziggy Dejesus MD Primary Care Provider [phone] Allergies Active AllergyReactionsCriticalityNoted DateCommentsBaclofenOther (See Comments) 07/10/2017 bradypnea Sulfamethoxazole-Zfxukbkhpipv85/19/2019Rosuvastatin Vluxhdo3208/19/2019Fenofibrate 05/15/2023 Other reaction(s): (Louis) 08/08/2011 LatexAnaphylaxis,Shortness Of QnkeepUctz68/16/2006LevofloxacinOther (See Comments)07/10/2017 thrush YqsdeqiitwfBlmst94/14/2006Phenazopyridine Hcl03/14/20067152Tjqnoegrjrd28/14/2006 PT TOLERATES CRESTOR Sulfa AntibioticsOther (See Comments)10/12/20218418RkkpkgfwxgEnffLui47/04/2023 Nrcuelxnnmtt62/01/2023 Other reaction(s): Hives Medications MedicationSigDispense QuantityRefillsLast FilledStart DateEnd DateStatus atorvastatin (LIPITOR) 20 MG tablet Take 1 tablet by mouth nightlyActive ASPIRIN 81 PO Take by mouthActive tamsulosin (FLOMAX) 0.4 MG capsule Take 1 capsule by mouth dailyActive CEVIMELINE HCL PO Take 25 mg by mouth 3 times dailyActive calcium carbonate 1500 (600 Ca) MG TABS tablet Take 500 mg by mouth 3 times daily (with meals)Active Diclofenac Sodium 3 % GEL Diclofenac Sodium 3 % External Gel APPLY SPARINGLY TO THE AFFECTED AREA(S) TWICE DAILY. Quantity: 0Refills: 0 Ordered: 28-Dec-2020 DO Start : 28-Dec-2020 Active 12/28/2020ctive citalopram (CELEXA) 10 MG tablet Take 2 tablets by mouth dailyActive Multiple Vitamins-Minerals (PRESERVISION AREDS 2 PO) Take by mouthActive Multiple Vitamin (MVI, BARIATRIC ADVANTAGE VITABAND, CHEW TAB) Take 1 tablet by mouth dailyActive amLODIPine (NORVASC) 2.5 MG tablet Take 1 tablet by mouth dailytive clopidogrel (PLAVIX) 75 MG tablet Take 1 tablet by mouth daily5Active estradiol (ESTRACE) 0.1 MG/GM vaginal cream Place vaginally daily07/23/2024ctive mirabegron (MYRBETRIQ) 50 MG TB24 Take 50 mg by mouth daily08/05/2024ctive traMADol (ULTRAM) 50 MG tablet 10/11/2024tive Active Problems No known active problems Family History Medical HistoryRelationNameCommentsHeart AttackBrotherOtherFatherCardian Issues Cervical CancerMotherHigh Blood PressureMotherOtherMotherCardiac IssueOtherOther No family hx breast cancerStrokePaternal GrandmotherOtherSisterhad hyst young d/t fibroidsRelationNameStatusCommentsBrotherAliveFatherMotherOtherPaternal GrandmotherSister Social History Tobacco UseTypesPacks/DayYears UsedDateSmoking Tobacco: NeverSmokeless Tobacco: Never Tobacco Cessation:Counseling Given: Not Answered Alcohol UseStandard Drinks/WeekCommentsNot Currently0 (1 standard drink = 0.6 oz pure alcohol)PHQ-2AnswerDate RecordedPHQ-9 Total Omtax747Interpersonal Safety Domain Source: IP Abuse ScreeningAnswerDate RecordedRead-Only, Retired: Physical FlyjpIwkeoq05/18/2023Read-Only, Retired: Verbal VliagHnujgg91/18/2023 Read-Only, Retired: Emotional xaktzZmftxh63/18/2023Read-Only, Retired: Financial WspvkPaxvgy58/18/2023Read-Only, Retired: Sexual kofunCkafuw04/18/2023 CommentsNoSex and Gender InformationValueDate RecordedSex Assigned at Clbmco3510/26/2024 4:50 PM ESTLegal AxtCygcxq98/07/2013 12:32 PM ESTGender IdentityNot on fileSexual OrientationNot on file Last Filed Vital Signs Vital SignReadingTime TakenCommentsBlood Rmunxfot453/8210/28/2024 4:46 PM EST Fhcfh706206/18/2023 3:15 PM CDDFfzeolangin03.1 ??C (97 ??F)06/18/2023 2:36 PM EDT Respiratory Qgve387306/18/2023 3:15 PM EDTOxygen Plggblkebz81%06/18/2023 3:15 PM EDTInhaled Oxygen Concentration--Nucjhw62.9 kg (154 lb)10/28/2024 4:46 PM EST Xbnmje262 cm (5' 3 )10/28/2024 4:46 PM ESTBody Mass Index27.28010/28/2024 4:46 PM EST Plan of Treatment DateTypeDepartmentCare Team (Latest Contact Info)Zpdrgzpjobw22/03/2026 4:15 PM ESTOffice Visit [facility] Part of [address] [place] [address] Gaby Murry, DO [address] [place] [address] [address] [place], [place] [id number] AnnualHealth MaintenanceDue DateLast GjkcUhfpkeewLeyanl46/09/1974HIV screen 1979Hepatitis C lrlwva0306/09/1982DTaP/Tdap/Td vaccine (1 - Tdap)1983 Diabetes kdjcfs3806/09/19997630Grtejzvdyrk78/09/2009Colorectal Cancer Lkserq9106/09/2009 FIT/FOBT: Average risk2009Fecal-DNA (Cologuard): Average risk2009 Sigmoidoscopy/CT oaskqppwnmay13/09/2009Pneumococcal 50+ years Vaccine (2 of 2 - PCV)Respiratory Syncytial Virus (RSV) or age 60 yrs+ (1 - Risk 60-74 years 1-dose series)4Pap smear02/07/2025 02/07/2022, 08/19/2019Flu vaccine (#1)509/01/2023, 06/16/2022, 2022, Additional history existsCOVID-19 Vaccine ( season) 511/10/2020, 01/29/2021, 1Breast cancer ydsdbf5108/15/2025 08/15/2023, 07/24/2022, 07/28/2021, Additional history existsDepression Screen 6010/28/2024, 5Cervical cancer yvvyyg5602/07/2027HPV (without or with Pap)705/07/2022, 08/19/2019Pneumococcal 0-49 years Vaccine Nmmwrvfsrxzz09/09/2017Shingles ychmaboCmiitehul86/21/2022, 06/16/2022Hepatitis A vaccineAged OutNo longer eligible based on patient's age to complete this topic Hepatitis B vaccineAged OutNo longer eligible based on patient's age to complete this topicHib vaccineAged OutNo longer eligible based on patient's age to complete this topicMeningococcal (ACWY) vaccineAged OutNo longer eligible based on patient's age to complete this topicMeningococcal B vaccineAged OutNo longer eligible based on patient's age to complete this topicPolio vaccineAged OutNo longer eligible based on patient's age to complete this topic Procedures Procedure NamePriorityDate/TimeAssociated DiagnosisCommentsHUMAN PAPILLOMAVIRUS (HPV) DNA PROBE THIN PREP HIGH JPALPlqeejg71/10/2022 8:18 AM EDT CLINIC SUPERVISOR LKKSGYORGndgdbf50/10/2022 8:18 AM EDT HM IJIIVXFWTXCMnhutip25/28/2021from Last 3 Months or Most Recently Relevant to Health Maintenance Results * Human papillomavirus (HPV) DNA probe thin prep high risk (02/07/2022 8:18 AM EDT)ComponentValueRef RangeTest MethodAnalysis TimePerformed AtPathologist SignatureSpecimen Description.GENITAL - NOT PNGTOEZDR36/10/2022 8:18 AM EDT [facility] LAB[facility]ATORIESHPV Sample.THIN PREP02/07/2022 8:18 AM EDNeiron HPV, Genotype 16Not DetectedNot Eqjwdecs10/10/2022 8:18 AM EDSample6HPV, Genotype 18Not DetectedNot Gfxwtzee40/10/2022 8:18 AM EDT [facility]IESHPV, High Risk OtherNot DetectedNot Yokquqcc31/10/2022 8:18 AM EDSample6HPV, Bwswtyzivcszcm06/10/2022 8:18 AM [email or web address].com LABORATORIESComment: This test amplifies and detects DNA of 14 high-risk HPV types associated with cervical cancer and its precursor lesions (HPV types 16,18, 31, 33, 35, 39, 45, 51, 52, 56, 58, 59, 66, and 68). ? Sensitivity may be affected by specimen collection methods, stage of infection, and the presence of interfering substances. Results should be interpreted in conjunction with other available laboratory and clinical data. A negative high-risk HPV result does not exclude the possibility of future cytologic HSIL or underlying CIN2-3 or cancer. ? This test is intended for medical purposes only and is not valid for the evaluation of suspected sexual abuse or for other forensic purposes. Specimen (Source)Anatomical Location / LateralityCollection Method / Volume Collection TimeReceived TimeSPECIMEN FROM GENITAL SYSTEM / Uvrcnut2102/07/2022 8:18 AM EDT Narrative Authorizing ProviderResult TypeResult StatusCarmen F Jeanmarie DOHEMATOLOGY ORDERABLESFinal ResultPerforming OrganizationAddressCity/State/ZIP CodePhone Number [facility] [address] [place] [address], [facility] [phone] [facility] [address] [id number] [phone] * CLINIC SUPERVISOR Cytology (02/07/2022 8:18 AM EDT)ComponentValueRef RangeTest Method Analysis TimePerformed AtPathologist SignatureCytology ReportINTERPRETATION Cervical material, (ThinPrep vial, Imaging-assisted review): Specimen Adequacy: ? Satisfactory for evaluation. ? -Endocervical/transformation zone component is absent. Descriptive Diagnosis: ? Negative for intraepithelial lesion or malignancy. ?? Supervisor Road Administrator: ?? KENYA BECERRA(ASCP) Electronically Signed Out ey02/10/2022 Procedure/Addendum HPV Procedure Report ? Date Ordered: ? 02/08/2022 ? Status: Signed Out ? Date Complete: ? 02/09/2022 ? By: System Interface ? Date Reported: ? 02/09/2022 ? Sample: ??HPV Type 16 ?Result: ?? Not Detected ?Ref Range: (Not Detected) Sample: ??HPV Type 18 ?Result: ?? Not Detected ?Ref Range: (Not Detected) Sample: ??Other High Risk HPV ?Result: ?? Not Detected ?Ref Range: (Not Detected) Sample: ??HPV Interp ?Result: ? Ref Range: (Not Detected) This test amplifies and detects DNA of 14 high-risk HPV types associated with cervical cancer and its precursor lesions (HPV types 16,18, 31, 33, 35, 39, 45, 51, 52, 56, 58, 59, 66, and 68). ? Sensitivity may be affected by specimen collection methods, stage of infection, and the presence of interfering substances. Results should be interpreted in conjunction with other available laboratory and clinical data. A negative high-risk HPV result does not exclude the possibility of future cytologic HSIL or underlying CIN2-3 or cancer. ? This test is intended for medical purposes only and is not valid for the evaluation of suspected sexual abuse or for other forensic purposes. ?? 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 ??[place], [place] [address] [facility] LABORATORIESSpecimen (Source)Anatomical Location / LateralityCollection Method / VolumeCollection TimeReceived TimeCERVICAL BSITVKIO29/10/2022 8:18 AM EDT02/08/2022 8:18 AM EDT Narrative Authorizing ProviderResult TypeResult StatusCarmen F Deuce-Tello DO PATHOLOGY/CYTOLOGY ORDERABLESFinal ResultPerforming OrganizationAddress City/State/ZIP CodePhone Number [facility] [address] [place] [address], [facility] [phone] [facility] [address] [place] [address], [facility] [phone] * HM MAMMOGRAPHY (07/28/2021)Anatomical RegionLateralityModalityOther Narrative Authorizing ProviderResult TypeResult StatusCarmen F Deuce-Tello DOHEALTH MAINTENANCEFinal Result from Last 3 Months or Most Recently Relevant to Health Maintenance Insurance Advance Directives * Full Code (Latest Code Status on File) Date ActivatedDate InactivatedComments06/18/2023 1:21 PM06/18/2023 5:57 PM Care Teams Team MemberRelationshipSpecialtyStart DateEnd Date Ziggy Dejesus MD [address] [place] [address] PCP - GeneralFamily Hnpopbhy56/19/19
--- OUTSIDE RECORDS SUMMARY | 2025-07-22 10:03 | XMS_ITS | Clinical Summary ---
Author Organization [facility] Address [address] [place] [address] Care Team Providers Care Green Energy Marketing Analyst Name Role Phone Ziggy Dejesus MD Primary Care Provider [phone] Allergies Active AllergyReactionsCriticalityNoted DateCommentsBaclofenOther,Shortness of yadnjlZbdb93/10/2017 bradypnea FenofibrateGI /22/2009 Other reaction(s): (Louis) 08/08/2011 Other reaction(s): Intolerance elevated liver enzymes elevated liver enzymes Kbkpstzgsnd22/14/2006 PT TOLERATES CRESTOR LatexAnaphylaxis,Shortness of ssygygJthg42/16/3271Ohqsvhgbbrvc11/10/2017 Other Reaction(s): Other (See Comments), thrush thrush PenicillinsHives,HblmNta1503/14/2006PhenazopyridineGI krfaqlythvu41/14/2006Sulfa AntibioticsHives,Shortness of jwuhdvYnti22/14/2006 Other Reaction(s): Other (See Comments) Sulfamethoxazole-RyqshbzjvfnrCtwzwTsnpvq14/19/0791RnlczffzdzBdohPre24/04/2023 Igaprhhzykiw11/01/2023 Other reaction(s): Hives Medications MedicationSigDispense QuantityRefillsLast FilledStart DateEnd DateStatus RABEprazole (Aciphex) 20 MG EC tablet Take 20 mg by mouth in the morning and 20 mg before bedtime. Do not crush, chew, or split..Active citalopram (CeleXA) 20 MG tablet Take 20 mg by mouthActive aspirin 81 MG EC tablet Take 81 mg by mouth in the morning.Active tamsulosin (Flomax) 0.4 MG 24 hr capsule Take 0.4 mg by mouth in the morning.Active cevimeline (Evoxac) 30 MG capsule Take 30 mg by mouth in the morning and 30 mg in the evening and 30 mg before bedtime.Active calcium 200 MG tablet Take by mouthActive hydroCHLOROthiazide (HYDRODiuril) 12.5 MG tablet Take 12.5 mg by mouth in the morning. 1/2 tab.Active clopidogrel (Plavix) 75 MG tablet Take by mouth DailyActive Active Problems No known active problems Encounters DateTypeDepartmentCare BqruSzplaapekzr31/23/2025 10:15 AM EDTOffice Visit [facility] [address] [facility] [place] [phone] Jr. Torsten Sinha, DO Tendonitis of wrist, right; Right wrist pain06/23/2025amboo flowsheet [facility] [address] [place] [address] Jr. Torsten Sinha, DO 06/23/20257105Hytlii38/16/2025 9:15 AM EDTAncillary Procedure [facility] [address] [facility] [address] [place] [address] Chronic pain of right wrist06/16/20256597Rhonvf95/15/6775Fibpbz59/02/2025 10:15 AM EDTOffice Visit [facility] [address] [place] [address] Jr. Torsten Sinha, Chronic pain of right wrist06/02/2025amb flowsheet [facility] [address] [facility] [place] [phone] Jr. Torsten Sinha, DO 06/02/20251489Psizhk97/27/2025 3:15 PM EDTProcedure Visit [facility] [address] [facility] [address] [place] [address] Corbin Louie MD Numbness (Primary Dx); Paresthesias; Carpal tunnel syndrome, left05/27/20259606Ueclwc54/15/2025 11:55 AM EDTAncillary Procedure [address] [place] [phone] 05/15/2025 11:30 AM EDTOffice Visit [address] [address] [facility] [phone] Arik Byrd PA Right wrist pain (Primary Dx); Arm weakness; Numbness; Arm pain, right; Ulnar neuropathy of right upper pacbvlapr31/15/2025amboo flowsheet [address] [address] [place] [address] Arik Byrd PA 05/15/2025Travelfrom Last 3 Months Family History Medical HistoryRelationNameCommentsHeart diseaseFatherHeart diseaseMother RelationNameStatusCommentsFatherAliveMotherAlive Social History Tobacco UseTypesPacks/DayYears UsedDateSmoking Tobacco: NeverSmokeless Tobacco: Never Tobacco Cessation:Counseling Given: No Alcohol UseStandard Drinks/WeekCommentsNot Currently0 (1 standard drink = 0.6 oz pure alcohol)CommentsUnknownSex and Gender InformationValueDate Recorded Sex Assigned at OebneArhqiq66/13/2023 3:27 PM ESTLegal SwvGnnfot36/15/2023 7:08 PM EDTGender BlfyocgtWscqrh32/13/2023 3:27 PM ESTSexual OrientationNot on file Last Filed Vital Signs Vital SignReadingTime TakenCommentsBlood Iozawmox595/7210 12:00 PM EDT Pulse--Temperature--Respiratory Rate--Oxygen Saturation--Inhaled Oxygen Concentration--Qpmpch77.9 kg (174 lb)05/15/2025 11:45 AM BRDMhehch035 cm (5' 3 ) 05/15/2025 11:45 AM EDTBody Mass Index30.8205/15/2025 11:45 AM EDT Plan of Treatment DateTypeDepartmentCare Team (Latest Contact Info)Digrkxhsitn33/04/2025 10:45 AM ESTOffice Visit [address] [place] [address] Jr. Torsten Sinha, DO [address] [place] [address] Health MaintenanceDue DateLast DoneCommentsCT Ftzcewakykql1964Colonoscopy 1964Colorectal Cancer Szogjafvk1964FIT-DNA1964FIT1964 FOBT06/09/19644848Lcbjwlnnfqhsu76/09/5595Qyemkbvmz32/15/202411/, 07/24/2022, 10/28/2020, Additional history existsPap Smear/07/2022, 02/07/2022, 08/19/2019Influenza Vaccine (#1)509/01/2024, 06/05/2023, 06/16/2022, Additional history existsCervical Cancer Mdpzuhmyq55/10/2027HPV/Qpezio4602/07/2027 02/07/2022, 02/07/2022, 08/19/2019 Procedures Procedure NamePriorityDate/TimeAssociated DiagnosisCommentsMR WRIST RIGHT WO IV VLDIWJETUpbnoja13/16/2025 9:59 AM EDT Chronic pain of right wrist XR WRIST 1-2 VIEWS DMMHQBsrvuod12/15/2025 11:53 AM EDT Right wrist pain from Last 3 Months Results * MR wrist right wo IV contrast (06/16/2025 9:59 AM EDT)Anatomical Region LateralityModalityUpper Extremities, WristRightMagnetic ResonanceSpecimen (Source)Anatomical Location / LateralityCollection Method / VolumeCollection TimeReceived Time06/16/2025 3:51 PM EDT Impressions 06/16/2025 3:55 PM [...] involving the distal radius at the distal radioulnarjoint, likely degenerative in etiology. Additional areas of [...] is a physiological quantity of joint fluid. ??No evidence of synovitis. OTHER: No other significant [...] discussed. ELECTRONICALLY SIGNED BY: Wilder Arango MD Authorizing ProviderResult TypeResult StatusJr. Torsten Sinha [facility] MRI PROCEDURESFinal Result * XR wrist 1 or 2 views right (05/15/2025 11:53 AM EDT)Anatomical Region LateralityModalityUpper Extremities, WristRightRadiographic ImagingSpecimen (Source)Anatomical Location / LateralityCollection Method / VolumeCollection TimeReceived Time Narrative 05/15/2025 9:57 PM EDT Image result: AP and Lateral Right Wrist: Bone Structure: No acute fracture or dislocation Joint Spaces: The carpal joint spaces are well preserved, minimal joint space narrowing mostly radial with subchondral sclerosis. Scapho-lunate interval within normal limit. Soft tissue: No swelling or calcification Impression: No acute bony process Right Wrist with minimal degenerative changes. Authorizing ProviderResult TypeResult StatusMatthortenciaw Ronny Byrd PAIMG XR PROCEDURES Final Result from Last 3 Months Insurance Care Teams Team MemberRelationshipSpecialtyStart DateEnd Date Ziggy Dejesus MD [address] [place] [phone] PCP - [facility]Unity[facility] Muscatinely Medicine02/13/25
--- OUTSIDE RECORDS SUMMARY | 2025-07-22 10:03 | XMS_ITS | Clinical Summary ---
Author Organization [facility] Address [id number] [address] [place] [address] Care Team Providers Care Interventional Cardiologist Name Role Phone Ziggy Dejesus MD Primary Care Provider [phone] Allergies Active AllergyReactionsCriticalityNoted DateCommentsBaclofenOther (See Comments) 07/10/2017 bradypnea Fenofibrate Srphaksbpc79/22/2009 Other reaction(s): Intolerance elevated liver enzymes TbeuyMmredwtawtbIkbx86/07/2017LevofloxacinOther (See Comments)07/10/2017 thrush ZomxqhzhyysRczhv97/14/2006Phenazopyridine HclNausea And Blsjcctf03/14/2006 RosuvastatinOther (See Comments)07/10/2017 Elevated liver enzymes, pt cannot take this in addition with fenofibrate Sulfa (Sulfonamide Antibiotics)Hives03/14/20063940JboltnyyvaLdgoUgx50/04/2023 Medications MedicationSigDispense QuantityRefillsLast FilledStart DateEnd DateStatus aspirin 81 mg Take 1 tablet (81 mg total) by mouth in the morning.Active RABEprazole (ACIPHEX) 20 mg EC tablet Take 1 tablet (20 mg total) by mouth in the morning and 1 tablet (20 mg total) before bedtime.Active sod fyfok-ojtfab-yuxcie bottle (NEILMED SINUS RINSE COMPLETE) packet with rinse device nasal solution Indications:S/P nasal septoplastyAdminister 1 packet into each nostril daily. 60 packet 09/13/2017Active Additional Information Patient not taking.Reported on 07/19/2022 tamsulosin (FLOMAX) 0.4 mg capsule Take 1 capsule (0.4 mg total) by mouth in the morning.Active NYSTOP powder 04/19/2018Active calcium carbonate (OS-ARLEY) 600 mg (1,500 mg) tablet Take 500 mg by mouth 3 (three) times a day with meals. Active nfufowwo-lbwz-FF-calcium &mins (THERAGRAN-M) 9 mg iron-400 mcg tablet Take 1 tablet by mouth in the morning.Active hydroCHLOROthiazide (HYDRODIURIL) 12.5 mg tablet Take 0.5 tablets (6.25 mg total) by mouth daily. On holdActive docusate sodium (COLACE) 100 mg capsule Take 1 capsule (100 mg total) by mouth in the morning and 1 capsule (100 mg total) before bedtime.Active cholecalciferol, vitamin D3, (VITAMIN D3) 5,000 units capsule Take 2 capsules (10,000 Units total) by mouth 4 (four) times a week.Active acetaminophen (TYLENOL EXTRA STRENGTH) 500 mg tablet Take 2 tablets (1,000 mg total) by mouth every 6 (six) hours as needed for pain. Active ondansetron ODT (ZOFRAN ODT) 4 mg disintegrating tablet Dissolve 1 tablet (4 mg total) on tongue every 8 (eight) hours as needed for nausea for up to 10 doses. 10 tablet 10/04/2022ctive Additional Information Patient not taking.Reported on 03/06/2024 cevimeline (EVOXAC) 30 mg capsule Indications:XerostomiaTake 1 capsule (30 mg total) by mouth 3 (three) times a day. 360 capsule ctive Additional Information Patient taking differently:30 mg oral 3 times daily,Indications: xerostomia secondary to Sjogren's syndrome, Reported on 02/29/2024 fluticasone propionate (FLONASE) 50 mcg/actuation nasal spray Administer 2 sprays into each nostril in the morning. 16 g ctive vit C,S-Nd-bwrzk-lutein-zeaxan (PRESERVISION AREDS-2) 250-90-40-1 mg capsule Take 2 tablets by mouth in the morning and at bedtime.Active atorvastatin (LIPITOR) 20 mg tablet Indications:hypertriglyceridemiaTake 1 tablet (20 mg total) by mouth in the morning. Indications: high amount of triglyceride in the blood.Active citalopram (CeleXA) 20 mg tablet Indications:anxiety with depressionTake 1 tablet (20 mg total) by mouth in the morning. Indications: anxiousness associated with depression.Active Active Problems ProblemNoted DateDiagnosed DateDry nose03/20/20226462Rjogkofwpn78/14/2021Other chronic allergic zlueyntfgnwcuh37/14/2021/P nasal tfyjhtzwefb13/14/2017Clotting erbddctb03/10/5303Efuhxiaj40/10/2017GERD (gastroesophageal reflux disease) 07/10/2017Heart mjovsmp0007/10/20173736Jpymactshrbg29/10/2017Kidney xqwvxum4007/10/2017 Acute myocardial isaxboukvt18/10/2017 Immunizations ImmunizationAdministration DatesNext DueCOVID-19, mRNA, LNP-S, PF, 30mcg/0.3mL Dose01/08/2021 Family History Medical HistoryRelationNameCommentsCOPDFatherCoronary artery diseaseFather Peripheral vascular diseaseFatherAnemiaMotherMomEndometrial cancerMotherMomHeart diseaseMotherMomHypertensionMotherMomBreast cancerNeg HxRelationNameStatus CommentsFatherDeceasedMotherMomAlive Social History Tobacco UseTypesPacks/DayYears UsedDateSmoking Tobacco: NeverSmokeless Tobacco: Never Tobacco Cessation:Counseling Given: Not Answered Alcohol UseStandard Drinks/WeekCommentsNo0 (1 standard drink = 0.6 oz pure alcohol)PHQ-2AnswerDate RecordedTotal Zhppk5681ChildcareAnswerDate HgekygoxXejapgvevMowemtt19/04/2019EmploymentAnswerDate RecordedEmploymentUnknown 03/04/2019Hunger ScreeningAnswerDate RecordedWithin the past 12 months we worried whether our food would run out before we got money to buy more.Never True02/29/2024Within the past 12 months the food we bought just didn't last and we didn't have money to get more.Never True4Purpose - LifeAnswerDate RecordedPurpose and direction in azogOempmcz78/12/2021CommentsNoSex and Gender InformationValueDate RecordedSex Assigned at BirthNot on fileLegal Sex Lqlxyq9505/06/2015 11:31 AM EDTGender IdentityNot on fileSexual OrientationNot on file Last Filed Vital Signs Vital SignReadingTime TakenCommentsBlood Wnherxey862/7306 12:01 PM EDT Ydnrb712203/06/2024 12:01 PM UOYKjixjloqtfl44.1 ??C (97 ??F)03/06/2024 12:01 PM EDTRespiratory Aezs332703/06/2024 12:01 PM EDTOxygen Mmbxllixtd92%03/06/2024 12:01 PM EDTInhaled Oxygen Concentration--Bdsdww69.8 kg (167 lb)02/29/2024 11:15 AM NWUTrveku812 cm (5' 3 )02/29/2024 11:15 AM EDTBody Mass Index29.58002/29/2024 11:15 AM EDT Plan of Treatment Health MaintenanceDue DateLast DoneCommentsDepression Gepzrjbvr63/09/1976 DTaP,Tdap and Td Vaccines (1 - Tdap)1983Pap Smear/07/2022, 02/07/2022, 08/19/2019Adult BMI Bxgmvggry62/Tobacco Screening /OVID-19 Vaccine ( - season)/10/2020, 01/29/2021, 01/08/2021Influenza Durkwvt24/01/2024, 06/05/2023, 06/16/2022, Additional history existsZoster (Shingles) VaccineCompleted 08/21/2022, 06/16/2022 Medical Devices ImplantedTypeAreaManufacturerDevice IdentifierShelf Expiration DateModel / Serial / LotTissue Alloderm Nonmesh 2x4cm - Sna - [id number] Implanted:Qty: 1 on 09/06/2017 [facility]20[facility]2018102009 / NA / [id number] Iol Ultrasert 17.0d - [id number] - [id number] Implanted:Qty: 1 on 11/14/2018 [facility] [employer]09/30/2020AU00T0 17.0 / [id number] / NASinus Implant Propel Mini - Sna - [id number] Implanted:Qty: 1 on 01/03/2018 by Devaughn Messer MD PhD at [facility] ImplantNoseINTERSECT ENT INC03/06/201860011 / NA / [id number] Implant Propel - Sna - [id number] Implanted:Qty: 2 on 01/03/2018 [facility] Nose[employer] INC02/15/474430601 / NA / [id number] Restor Implanted:Qty: 1 on 11/05/2018 [facility] [employer]11/29/2019SV25T0 / [id number] / NA Insurance Care Teams Team MemberRelationshipSpecialtyStart DateEnd Ziggy Dejesus MD [facility]02/22/17
--- OUTSIDE RECORDS SUMMARY | 2025-07-22 10:04 | XMS_ITS | Clinical Summary ---
Author Organization [facility] Address [address] [place] [address] Care Team Providers Care Senior Health Educator Name Role Phone Ziggy Dejesus MD Primary Care Provider [phone] Allergies Active AllergyReactionsCriticalityNoted DateCommentsBaclofenAnaphylaxis,Other, Shortness of prnxudQkdt08/10/2017 bradypnea FenofibrateGI ovqzgpmxhys18/22/2009 Other reaction(s): (Louis) 08/08/2011 Other reaction(s): Intolerance elevated liver enzymes elevated liver enzymes Other reaction(s): (Louis) 08/08/2011 Fenofibrate MicronizedGI jyulchwkfsq40/22/2009 elevated liver enzymes Other reaction(s): Intolerance elevated liver enzymes WczbindrepgKkmngjq27/14/2006 PT TOLERATES CRESTOR Latex, Natural RubberAnaphylaxis,Shortness of qgxazsHvwo93/16/2006Levofloxacin Other,Alzorrou56/10/2017 thrush Other Reaction(s): Other (See Comments), thrush thrush PenicillinsAnaphylaxis,Hives,Rash,Shortness of zhndneCdzp00/14/2006 PhenazopyridineGI intolerance,Nausea And Praoavee98/14/2006RosuvastatinGI intolerance,EcztzJemzic62/10/2017 Elevated liver enzymes, pt cannot take this in addition with fenofibrate WkbbsjocukvNdpilkl03/14/2006 PT TOLERATES CRESTOR Sulfa (Sulfonamide Antibiotics)Hives,Shortness of jolgvfMnqf65/14/2006 Other Reaction(s): Other (See Comments) Sulfamethoxazole-VxmvgsvdpkegOmckhHdmcjm49/19/1282CnxnkrylleYivoNto00/04/2023 DdrrfntqzfjbFmeha60/01/2023 Other reaction(s): Hives Medications MedicationSigDispense QuantityRefillsLast FilledStart DateEnd DateStatus citalopram (CeleXA) 20 mg tablet Take 20 mg by mouth in the morning.Active aspirin 81 mg EC tablet Take 81 mg by mouth 1 (one) time.11/01/2022ctive cevimeline (Evoxac) 30 mg capsule Take 30 mg by mouth three times daily.04/17/2018Active RABEprazole (Aciphex) 20 mg EC tablet Take 20 mg by mouth in the morning and at bedtime.04/17/2018Active tamsulosin (Flomax) 0.4 mg 24 hr capsule Take 0.4 mg by mouth in the morning.04/17/2018Active amLODIPine (Norvasc) 2.5 mg tablet Take 2.5 mg by mouth in the morning.tive clopidogrel (Plavix) 75 mg tablet Take 75 mg by mouth in the morning.tive estradiol (Estrace) 0.01 % (0.1 mg/gram) vaginal cream Insert into the vagina in the morning.07/23/2024ctive mirabegron 50 mg tablet extended release 24 hr Take 50 mg by mouth.08/05/2024ctive traMADol (Ultram) 50 mg tablet 10/11/2024tive casanthranol/docusate sodium (STOOL SOFTENER PLUS LAXATIVE ORAL) Take by mouth. DIGESTSYNC is what she is taking OTCActive fluticasone (Flonase) 50 mcg/actuation nasal spray INSTILL 1 SPRAY IN EACH NOSTIRL TWICE A DAY. for 90Active HYDROcodone-acetaminophen ([place]) 5-325 mg tablet 01/03/2025tive hyoscyamine (Anaspaz,Levsin) 0.125 mg tablet 2 tablet as needed Orally every 4 hrs PRN abd pain04/28/2024ctive ondansetron ODT (Zofran-ODT) 4 mg disintegrating tablet 01/03/2025tive hydroCHLOROthiazide (HYDRODiuril) 25 mg tablet 03/16/2025tive pancrelipase, Gkc-Niky-Kiqs, (Creon) 12,000-38,000 -60,000 unit capsule Indications:Pancreatic insufficiency1 capsule before snack. 90 capsule 08/19/2025Active pancrelipase, Hnu-Fdxo-Ztwf, (Creon) 36,000-114,000- 180,000 unit capsule,delayed release(DR/EC) capsule Indications:Pancreatic insufficiencyTake 1 capsule by mouth with breakfast, with lunch, and with evening meal. Take 1 capsule before each meal 270 capsule 5Active Active Problems ProblemNoted DateDiagnosed DateBMI 30.0-30.9,adult09/05/2024S/P PTCA (percutaneous transluminal coronary angioplasty)09/05/2024Statin intolerance 09/05/2024ngina zehjtebm37/28/2024 Overview (02/26/2024): non for 4 yrs Cellulitis of right foot due to methicillin-resistant Staphylococcus aureus 02/26/2024 Overview (02/26/2024): nare after surgery Edxigijwsyjulhgvijes15/28/2024Peripheral edema02/26/20247619Wplpbrukfl96/28/2024 Atherosclerosis of coronary artery of [place] heart without angina pectoris 08/09/2023Essential hypertension, dbmzzi7608/09/2023History of coronary artery bypass graft08/09/2023Ischemic gyjtbpjoppvdhg04/09/2023Paroxysmal SVT (supraventricular tachycardia)08/09/2023Ventricular septal qntijl9608/09/2023 Chronic cqevixdsljtb16/04/2023Dry nose2Other chronic allergic lontsdjfsihxjs13/14/2021Morbid qavrjbb7001/31/2018S/P nasal hnxfoxfjeso41/14/2017 Acute myocardial sknzxwidcz49/10/2017Clotting upuwwzcr72/10/2017Diabetes 07/10/2017GERD (gastroesophageal reflux disease)07/10/2017Heart disease 07/10/2017Kidney fbvymka3407/10/2017 Encounters DateTypeDepartmentCare AmemMmadnnzwcua39/19/2025Telephone [facility] [address] [place] [address] [place] [address] Gisela Arellano RN 05/19/2025Orders Only [facility] [address] [place] [address] [place] [phone] Roberto Watson MD Pancreatic eihjxhdpinyln15/14/2025Telephone [facility] at [address] [address] Nicole Locke MA 05/14/2025[facility] [address] [phone] Nicole Locke MA 05/14/2025Telephone [facility] [address] [place] [address] [place] [address] Roberto Watson MD 05/14/2025Telephone [facility] End[facility] [address] [place] [phone] Gisela Arellano RN 05/08/2025 10:30 AM EDTFollow-Up [facility] [address] [phone] Chauncey Cooper MD Pancreatic insufficiency (Primary Dx); Sphincter of Oddi dysfunctionfrom Last 3 Months Immunizations ImmunizationAdministration DatesNext DueInfluenza, High Dose Seasonal, Preservative Free2022Influenza, Rfogbqplnjb53/30/2021Influenza, injectable, MDCK, preservative free, psnyhnnjwrqb71/03/2021,07/26/2017Influenza, injectable, quadrivalent, preservative free06/05/2023,06/16/2022,2020, 07/23/2018Influenza, seasonal, vbpjycnyju21/15/2014Influenza, seasonal, injectable, preservative free, 6 moonths & older06/05/2024,07/03/2015Novel dtevosdoo-O2U8-07, preservative-free07/29/2009Pfizer SARS-CoV-2 Vaccination 1Pneumococcal Polysaccharide ISW5667/06/2017Zoster, Recombinant 08/21/2022,06/16/2022 Family History Medical HistoryRelationNameCommentsHyperlipidemiaBrother 1BudHeart attackBrother 2RayHyperlipidemiaFatherWileyHyperlipidemiaMotherKatharynRelationNameStatus CommentsBrother 1BudBrother 2RayFatherWileyMotherKatharyn Social History Tobacco UseTypesPacks/DayYears UsedDateSmoking Tobacco: NeverPassive Smoke Exposure: NeverSmokeless Tobacco: Never Tobacco Cessation:Counseling Given: Not Answered Alcohol UseStandard Drinks/WeekCommentsNever0 (1 standard drink = 0.6 oz pure alcohol)Humiliation, Afraid, Rape, and Kick questionnaireAnswerDate Recorded Within the last year, have you been afraid of your partner or ex-partner?No 02/27/2024Within the last year, have you been humiliated or emotionally abused in other ways by your partner or ex-partner?No02/27/2024Within the last year, have you been kicked, hit, slapped, or otherwise physically hurt by your partner or ex-partner?No02/27/2024Within the last year, have you been raped or forced to have any kind of sexual activity by your partner or ex-partner?No02/27/2024HQ-2 AnswerDate RecordedPatient Health Questionnaire-2 Nnaiu183regnant CommentsUnknownSex and Gender InformationValueDate RecordedSex Assigned at Qmidxk0002/27/2024 10:42 AM EDTLegal XxyUosmyq35/13/2023 9:56 AM ESTGender DwhvjjcyStakzd44/29/2024 10:42 AM EDTSexual OrientationHeterosexual or Straight 02/27/2024 10:42 AM EDT Last Filed Vital Signs Vital SignReadingTime TakenCommentsBlood Ooypshwg196/8008 10:34 AM EDT Puqnk883305/08/2025 10:34 AM EDTTemperature--Respiratory Haei785205/08/2025 10:34 AM EDTOxygen Saturation--Inhaled Oxygen Concentration--Pbwstq48.6 kg (182 lb) 05/08/2025 10:34 AM WDKZienpn710 cm (5' 3 )05/08/2025 10:34 AM EDTBody Mass Index32.2408 10:34 AM EDT Plan of Treatment Health MaintenanceDue DateLast DoneCommentsCT Tetkplukundk1964Colonoscopy 1964Colorectal Cancer Ukrpojdrg1964FIT-DNA1964FIT1964 FOBT06/09/19643294Gkkrvlvqgthcq1964Diabetes: Retinopathy Qggbqovxl86/09/1974 Depression Akxzgwtlg99/09/1976Diabetes: Urine Protein Vlypoptab86/09/1983Adult Lswrxbq4406/09/1986Pneumococcal Vaccine: Pediatrics (0 to 5 Years) and At-Risk Patients (6 to 64 Years) (2 of 2 - PCV)Diabetes: Hemoglobin A1C/2738Aqhlnqsly11/24/094765/ap Smear02/07/2025 02/07/2022OVID-19 Vaccine ( season)5110/01/2020, 01/29/2021, 01/08/2021Influenza Vaccine (#1)/01/2024, 06/05/2023, 06/16/2022, Additional history existsCervical Cancer Sqlvmhfrh72/10/2027HPV/Qebmqp3402/07/2027 02/07/2022Zoster YbsibckuEyhjsnbba19/21/2022, 06/16/2022HIB VaccinesAged OutNo longer eligible based on patient's age to complete this topicHPV VaccinesAged OutNo longer eligible based on patient's age to complete this topicIPV Vaccines Aged OutNo longer eligible based on patient's age to complete this topic Meningococcal B VaccineAged OutNo longer eligible based on patient's age to complete this topicMeningococcal VaccineAged OutNo longer eligible based on patient's age to complete this topicRotavirus VaccinesAged OutNo longer eligible based on patient's age to complete this topic Procedures Procedure NamePriorityDate/TimeAssociated DiagnosisCommentsHEMOGLOBIN G7ZDykomcf 02/27/2024 12:18 PM EDT Elevated LFTs from Last 3 Months or Most Recently Relevant to Health Maintenance Results * Hemoglobin A1c (02/27/2024 12:18 PM EDT)ComponentValueRef RangeTest Method Analysis TimePerformed AtPathologist SignatureHemoglobin A1C5.14.0 - 6.0 % 02/27/2024 2:02 PM [facility]AL[facility])Estimated Average Sdeqgcb083 mg/dL02/27/2024 2:02 PM [facility] ([facility])Specimen (Source) Anatomical Location / LateralityCollection Method / VolumeCollection Time Received TimeBloodVenous blood specimen / UnknownVenipuncture / Unknown 02/27/2024 12:18 PM EDT02/27/2024 12:18 PM EDT Narrative Authorizing ProviderResult TypeResult StatusYasegarfield Magallon MDLAB BLOOD ORDERABLESFinal ResultPerforming OrganizationAddressCity/State/ZIP CodePhone Number [facility] ([facility]) [address] [place] [address] from Last 3 Months or Most Recently Relevant to Health Maintenance Insurance Care Teams Team MemberRelationshipSpecialtyStart DateEnd Date Ziggy Dejesus MD [address] [facility] [place] [address] PCP - General02/18/24
--- OUTSIDE RECORDS SUMMARY | 2025-07-22 10:04 | XMS_ITS | Clinical Summary ---
Author Organization [facility] Address [address] [place] [address] Care Team Providers Care Batch Operator Name Role Phone Unavailable Primary Care Provider Unavailabl e Encounters DateTypeDepartmentCare QnkoRbxdjnglskh65/21/2025Telephone Inflammatory Bowel Disease [facility] [address] [place] [address] Mirian Pitts Outside Medical Records Zblfoqb7606/18/2025Telephone [facility] Bowel Disease [facility] [address] [place], [place] [phone] Mirian Pitts Outside Medical Records Requestfrom Last 3 Months Social History Tobacco UseTypesPacks/DayYears UsedDateSmoking Tobacco: Never Assessed CommentsUnknownSex and Gender InformationValueDate RecordedSex Assigned at Not on fileLegal SfeTcozsb39/03/2013 2:50 PM ESTGender IdentityNot on fileSexual OrientationNot on file Plan of Treatment DateTypeDepartmentCare Team (Latest Contact Info)Mbjqracread95/31/2025 3:00 PM EDTOffice Visit Inflammatory Bowel Disease [facility] [address] [place] [address] Ramiro Britton MD [address] [place] [address] Health MaintenanceDue DateLast DoneCommentsHEPATITIS C VIRUS JNHAWFLNG1964 IAYLUXP3506/09/1964HIV SCREENING FFKHTCWBPP13/09/1979TDAP (ADULT)1983 CERVICAL CANCER SCREENING UBYNWGKRAZ80/09/1985LIPID SIPKKIRQA10/09/2004 COLORECTAL CANCER SCREENING ONHIMGWPQR18/09/2009PNEUMOCOCCAL VACCINE SERIES (1 of 1 - PCV)2014ZOSTER (SHINGLES) VACCINE (1 of 2)2014MAMMOGRAM SCREENING RCNXZXMLSS09/15/924256/, 07/24/2022, 10/28/2020, Additional history existsCOVID-19 VACCINE ( - 2024- season)2025INFLUENZA VACCINE (#1)2025RSV VACCINE (1 - 1-dose 75+ series)2039HEP B VACCINEAged Out No longer eligible based on patient's age to complete this topic Insurance
--- OUTSIDE RECORDS SUMMARY | 2025-07-22 10:04 | XMS_ITS | Encounter Summary ---
Author Organization [facility] Address [address] [place] [address] Care Team Providers Care Filling Hauler Weaving Name Role Phone Unavailable Primary Care Provider Unavailabl e Reason for Visit * ReasonOnset DateCommentsOutside Medical Records Mzalflf4007/21/2025 Encounter Details DateTypeDepartmentCare Team (Latest Contact Info)Lounbusojpy94/21/2025Telephone [facility] [place] [address] [place] [address] Mirian Pitts Outside Medical Records Request Social History Tobacco UseTypesPacks/DayYears UsedDateSmoking Tobacco: Never Assessed CommentsUnknownSex and Gender InformationValueDate RecordedSex Assigned at Not on fileLegal DfhQtcfyu90/03/2013 2:50 PM ESTGender IdentityNot on fileSexual OrientationNot on filedocumented as of this encounter Miscellaneous Notes * Telephone Encounter - Mirian Pitts - 07/21/2025 10:23 AM EDT [facility] records requested for upcoming appt. Fax sent to LUCY KIMBLE MD Requested:[phone] Most recent PCP or GI note MOST RECENT EDG/COLON MOST RECENT GI or Hepatology Pathology MOST RECENT LABS IF AVAILABLE PLEASE INCLUDE ANY PROCEDURE REPORTS AND IMAGING INCLUDING RUQ, CTAP, EUS ,ERCP, ESOPHAGRAM, GASTRIC EMPTYING SCAN. [facility] documented in this encounter Plan of Treatment DateTypeDepartforest health medical centerCare Team (Latest Contact Info)Vcpazuliwxc57/31/2025 3:00 PM EDTOffice Visit [facility] [place] [address] [place] [address] Ramiro Britton MD [facility] [place] [address] documented as of this encounter Visit Diagnoses Not on filedocumented in this encounter
--- OUTSIDE RECORDS SUMMARY | 2025-07-22 10:04 | XMS_ITS | Clinical Summary ---
Author Organization [facility] Address [address] [place] [address] Phone Care Team Providers Care Instrument Repair Technician Name Role Phone Ziggy Dejesus MD Primary Care Provider [phone] Allergies Active AllergyReactionsCriticalityNoted DateCommentsBaclofenShortness of breath High08/09/2023LatexShortness of fgbisyNvex83/09/5314RcwecdzpflnNvprIpd91/09/2023 MamqtndqfhcuPmbavTksxbs20/09/2023Sulfa (Sulfonamide Antibiotics)Shortness of qrjsvqBfnb13/09/2023Sulfamethoxazole-HhiwhekeorcrLjryfXvomop46/09/2023 Medications MedicationSigDispense QuantityRefillsLast FilledStart DateEnd DateStatus cevimeline (Evoxac) 30 mg capsule Take by mouth 3 times a day.11/03/2020ctive diclofenac sodium 3 % gel twice a day.12/28/2020ctive docusate sodium (Colace) 100 mg capsule Take 1 capsule (100 mg) by mouth 2 times a day.Active fluticasone (Flonase) 50 mcg/actuation nasal spray Administer 1 spray into affected nostril(s) 2 times a day.11/26/2020ctive nystatin (Nyamyc) 100,000 unit/gram powder apply topically to affected area twice a day if oskrnn8805/05/2020Active Aciphex EC tablet Take 1 tablet (20 mg) by mouth 2 times a day.Active tamsulosin (Flomax) 0.4 mg 24 hr capsule Take 1 capsule (0.4 mg) by mouth once daily.01/26/2021Active calcium carbonate (CALCIUM 500 ORAL) Take 1 tablet by mouth once daily.Active vit C/E/Zn/coppr/lutein/zeaxan (PRESERVISION AREDS-2 ORAL) Take by mouth twice a day.Active multivit-min/ferrous fumarate (MULTI VITAMIN ORAL) Take 1 tablet by mouth 2 times a day.Active mometasone (Elocon) 0.1 % cream twice a day.12/25/2020ctive nitroglycerin (Nitrostat) 0.4 mg SL tablet Indications:Atherosclerosis of coronary artery of [place] heart without angina pectoris, unspecified vessel or lesion typePlace 1 tablet (0.4 mg) under the tongue every 5 minutes if needed for chest pain. 90 tablet 3Active mirabegron (Myrbetriq) 50 mg tablet extended release 24 hr 24 hr tablet Take 1 tablet (50 mg) by mouth once daily.08/05/2024ctive estradiol (Estrace) 0.01 % (0.1 mg/gram) vaginal cream Insert into the vagina once daily.07/23/2024ctive citalopram (CeleXA) 40 mg tablet Take 1 tablet (40 mg) by mouth once daily.08/03/2024ctive clopidogrel (Plavix) 75 mg tablet Indications:Atherosclerosis of coronary artery bypass graft of [place] heart without angina pectoris,S/P PTCA (percutaneous transluminal coronary angioplasty),History of coronary artery bypass graftTake 1 tablet (75 mg) by mouth once daily. 90 tablet 5Active amLODIPine (Norvasc) 2.5 mg tablet Indications:Essential hypertensionTake 1 tablet (2.5 mg) by mouth once daily. 90 tablet /5Active aspirin 81 mg EC tablet Indications:Atherosclerosis of coronary artery bypass graft of [place] heart without angina pectorisTAKE 1 TABLET BY MOUTH DAILY 90 tablet 5Active Active Problems ProblemNoted DateDiagnosed DateStatin tshctwxxadh03/06/2024MI 30.0-30.9,adult 09/05/2024S/P PTCA (percutaneous transluminal coronary angioplasty)09/05/2024 Gxsknxxqozkc12/13/2024therosclerosis of coronary artery of [place] heart without angina esahmevs85/09/2023Essential mjhfcdasdqhw09/09/2023History of coronary artery bypass graft08/09/20234233Zlexohxzgcjjwd14/09/2023Ischemic cardiomyopathy 08/09/2023aroxysmal SVT (supraventricular tachycardia)08/09/2023Ventricular septal ddrsgk5708/09/2023 Family History Medical HistoryRelationNameCommentsHeart attackBrother2 broStrokeBrother2 bro open heartBrother2 broRelationNameStatusCommentsBrother2 bro Social History Tobacco UseTypesPacks/DayYears UsedDateSmoking Tobacco: NeverSmokeless Tobacco: Never Tobacco Cessation:Counseling Given: Yes Alcohol UseStandard Drinks/WeekCommentsNever0 (1 standard drink = 0.6 oz pure alcohol)CommentsUnknownSex and Gender InformationValueDate RecordedSex Assigned at BirthNot on fileLegal VosBfipop35/26/2022 5:40 AM ESTGender Identity Not on fileSexual OrientationNot on file Last Filed Vital Signs Vital SignReadingTime TakenCommentsBlood Skaxaxrx250/80111/06/2023 9:53 AM EST Nnikl144309/05/2024 9:53 AM ESTTemperature--Respiratory Rate--Oxygen Saturation-- Inhaled Oxygen Concentration--Esxcch09.1 kg (170 lb)09/05/2024 9:53 AM ESTHeight 160 cm (5' 3 )09/05/2024 9:53 AM ESTBody Mass Index30.11111/06/2023 9:53 AM EST Plan of Treatment DateTypeDepartmentCare Team (Latest Contact Info)Fqcoajnxvyn24/18/2025 11:20 AM ESTOffice [facility] [address] [place] [address] Celso Garibay, [address] [facility] [address] [place] [address] Health MaintenanceDue DateLast DoneCommentsCT Fmiliqpbqwzx1964FIT-DNA (Cologuard)1964FIT1964HIV Xgmrhzqgp1964Lipid Panel1964 Bkefkkcagymdm1964MMR Vaccines (1 of 1 - Standard series)09/09/1965Diabetes Lyhcmqlqk78/09/1982Hepatitis C Kxwryooie97/09/1982HPV/Inrvgs3606/09/1985 DTaP/Tdap/Td Vaccines (1 - Tdap)1986Pneumococcal Vaccine (2 of 2 - PCV) Yearly Adult Dsohlobj59/, 02/07/2022, 02/07/2022, Additional history existsRSV High Risk: (Elderly (60+) or Population) (1 - Risk 60-74 years 1-dose series)06/09/20248670Rfsxyteoc46/15/2024 08/15/2023, 07/24/2022, 10/28/2020ervical Cancer Hntzluhpv06/10/2025Pap Smear /07/2022, 02/07/2022Influenza Vaccine (#1)509/01/2024, 06/05/2023, 06/16/2022, Additional history existsCOVID-19 Vaccine ( - season)511/10/2020, 01/29/2021, 01/08/20219408Ghhbydgpspt08/02/2033 11/02/2022, 3Colorectal Cancer Gjiwpoehb98/02/2033Zoster Vaccines Svctfrkqj73/21/2022, 06/16/2022HIB VaccinesAged OutNo longer eligible based on patient's age to complete this topicHPV VaccinesAged OutNo longer eligible based on patient's age to complete this topicHepatitis A VaccinesAged OutNo longer eligible based on patient's age to complete this topicHepatitis B VaccinesAged OutNo longer eligible based on patient's age to complete this topicIPV Vaccines Aged OutNo longer eligible based on patient's age to complete this topic Meningococcal VaccineAged OutNo longer eligible based on patient's age to complete this topicRotavirus VaccinesAged OutNo longer eligible based on patient's age to complete this topic Insurance * Guarantor: Tiarra CarneyAcconuvia TypeRelation to PatientDate of BirthPhone Billing AddressPersonal/HhiffrFiha1965 [address] [place] [address] Care Teams Team MemberRelationshipSpecialtyStart DateEnd Ziggy Dejesus MD [address], [place] [id number] PCP - Fbtggam73/17/21
--- OUTSIDE RECORDS SUMMARY | 2025-07-22 10:05 | XMS_ITS | CCD ---
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 Name Role Phone UNKNOWN, PROVIDER Unavailable Unavailable ZIGGY GRIGSBY Unavailable Unavailable UNKNOWN, PROVIDER Unavailable Unavailable ZIGGY GRIGSBY Unavailable Unavailable Ziggy Grigsby Primary Care Provider Ziggy Grigsby Unavailable Unavailable Unavailable Ziggy Grigsby MD Primary Care Provider [phone] Unavailable Unavailable Ziggy Grigsby Primary Care Physician DR CELSO GARIBAY [...] MISC, DR MORALES Attending Unavailable DR ZIGGY GRIGSBY Primary Care Unavailable DR ZIGGY GRIGSBY Consulting Unavailable SEB, DR RAMIREZ Admitting Unavailable SEB, DR RAMIREZ Attending Unavailable DR ZIGGY GRIGSBY Primary Care Unavailable DR ZIGGY GRIGSBY Consulting Unavailable SEB, DR RAMIREZ Admitting Unavailable SEB, DR RAMIREZ Attending Unavailable SEB, DR RAMIREZ Primary Care Unavailable DR ZIGGY GRIGSBY Consulting Unavailable MD Ziggy Grigsby Primary Care Provider [phone] MD Evert Bruno Attending Provider [phone] Evert Bruno Unavailable MD Ziggy Grigsby Primary Care Provider [phone] MD Evert Bruno Attending Provider [phone] Ziggy Grigsby MD Primary Care Provider [phone] GABY PHILLIPS Admitting Unavail able GABY PHILLIPS Attending Unavail able ZIGGY GRIGSBY M Primary Care Unavailable HOY, ZIGGY M Primary Care Unavailable Ziggy Grigsby MD Primary Care Provider [phone] STEPHANIE BERGER Attending Unavailable SEB, ZIGGY M Referring Unavailable HOY, ZIGGY M Primary Care Unavailable HOY, ZIGGY M Referring Unavailable HOY, ZIGGY M Primary Care Unavailable ALASTAL, YASEEN S Admitting Unavailable ALASTAL, YASEEN S Attending Unavailable HOEstefani, ZIGGY M Primary Care Unavailable MAGO MONAE Attending Unavailable HOEstefani, ZIGGY M Primary Care Unavailable ALASTAL, YASEEN S Attending Unavailable ALASTAL, YASEEN S Referring Unavailable HOEstefani, ZIGGY M Primary Care Unavailable BARRY MARTINO Attending Unavailab BARRY Rosa Attending Unavailab BARRY Rosa Attending Unavailab Ziggy Ruiz MD Primary Care Provider Lynnette Chapman MD Emergency Provider Donis Arroyo DO Admit Provider [phone] Donis Arroyo DO Attending Provider Anita Hammonds RN Unavailable Unavailable Donis Arroyo Admitting Unavailable Bella Stein Referring Unavailable Una Corrales Consulting Unavailable SebZiggy M Primary Care Unavailable Kaiser Quijano Attending Unavailable Sandi Garibay Consulting Unavailable Arvind Sanchez Consulting Unavailable Celso Ann Consulting Unavail able Nyasia Marquez Consulting Unavailable Samuel Olson Consulting Unavailab Cindy Urias Consulting Unavailable Cierra Artis Consulting Unavailable Durga Guerra Consulting Unavailab Toya Marsh Consulting Unavailable Jackie Daugherty Consulting Unavailable CELSO GARIBAY Attending Unavailable CELSO GARIBAY Referring Unavailable ZIGGY GRIGSBY Primary Care Unavailable CELSO GARIBAY Attending Unavailable ZIGGY GRIGSBY Primary Care Unavailable Ziggy Grigsby MD Primary Care Provider [phone] Ziggy Grigsby MD Primary Care Provider [phone] CHAUNCEY KIMBLE Referring Unavailable ZIGGY GRIGSBY Primary Care Unavailable RADHA JAIMES Referring Unavailable ZIGGY GRIGSBY Primary Care Unavailable Ziggy Grigsby MD Primary Care Provider [phone] SHYANNE, CHAUNCEY Attending Unavailable NAWRAS, ALI Referring Unavailable NAWRAS, ALI Referring Unavailable NAWRAS, ALI Attending Unavailable NAWRAS, ALI Attending Unavailable RAJI BYRD Attending Unavailable RAJI BYRD Referring Unavailable RAJI BYRD Attending Unavailable RAJI BYRD Referring Unavailable RAE LOUIE Attending Unavailable RAJI BYRD Referring Unavailable STEPANICJR., BRIDGETT Vann Attending Unavaila ble STEPANICJR., BRIDGETT Vann Referring Unavaila ble STEPJR. BHARAT, BRIDGETT Vann Attending Unavaila ble Allergies Allergy ClassificationReported Allergen(s)Allergy TypeDate of OnsetReaction(s) Facility (20 sources)Baclofen; Translations: [Baclofen TABS]Drug Kugpolz65-33-9294Wjkkg (See Comments), [place] ([place]Latex; Translations: [LATEX]Propensity to adverse reactions to drug 85-25-9207Usssvkppley, Shortness Of Breath, Anaphylaxis (disorder)[place] (16 sources)Penicillins; Translations: [penicillins]Propensity to adverse reactions to tyvu66-89-4598Rsryk, Anaphylaxis (disorder)[place] (3 sources)rosuvastatinDrug Tqkemhb80-84-2846Xjhpk Health- [place], [place] (20 sources)Sulfamethoxazole / Trimethoprim; Translations: [Bactrim TABS]Drug Ggfctww03-02-6529UdockSjuyf Health- [place], [place] (11 sources)natural latex rubberAllergy to substance (finding)[facility]ness of breathMunicipal [facility] 250 DO Work Phone: (11 sources)Penicillins; Translations: [Penicillins]Allergy to drug (finding) [facility] 250 DO Work Phone: (20 sources)rosuvastatin; Translations: [Crestor TABS]Drug Lpdrsvc36-43-4764 Elevated liver enzymes level (finding), Other, Other (See Comments)[facility] (16 sources)Sulfonamides (Antibiotic); Translations: [Sulfa Drugs]Allergy to drug (finding)[facility] (20 sources)levoFLOXacin; Translations: [levofloxacin]Drug Wawlfdi80-62-6134 Other (See Comments), Candidiasis (disorder)[facility] [employer] Work Phone: (8 sources)Phenazopyridine; Translations: [PHENAZOPYRIDINE HCL]Drug Allergy 71-24-3483Ztaqwm And VomitingGreene Memorial Hospital Health Work Phone: (3 sources)Simvastatin; Translations: [SIMVASTATIN]Drug Mmvjqyc76-68-2940Qqqym Health Work Phone: (15 sources)Sulfonamides (Antibiotic)Propensity to adverse reactions to drug 99-11-4564Rlisj (See Comments), Hives, [facility] breathMer[facility] (12 sources)Tobramycin; Translations: [tobramycin]Drug Bbgjdpv58-62-3613Mhiiidoi of skin (disorder), [facility] (1 source)BaclofenDrug AllergyThe [facility] (1 source)LatexDrug allergy (disorder)[facility] (5 sources)levoFLOXacin; Translations: [Levaquin]Drug AllergythrushThe [facility] (1 source)PenicillinsDrug allergy (disorder)[facility] (1 source)rosuvastatinDrug AllergyThe [facility] (1 source)Sulfonamides (Antibiotic)Drug allergy (disorder)[facility] (11 sources)rosuvastatin; Translations: [ROSUVASTATIN]Drug Fvpybnt34-20-3873 [facility]psetTr[facility] (5 sources)Sulfamethoxazole; Translations: [sulfamethoxazole]Drug Allergy 32-90-7116Muvuo, Hives, ([place]) 08/08/2011[facility] (20 sources)Trimethoprim; Translations: [trimethoprim]Drug Pgarvha97-88-1555 Hives, Hives, ([place]) 08/08/2011[facility] (6 sources)Fenofibrate; Translations: [FENOFIBRATE]Drug Xcirwvy99-46-4395([place]) 08/08/2011[facility] [employer] (3 sources)PenicillinDrug Allergy([place]) 08/08/2011[facility] Other (9 sources)Substance with sulfonamide structure and antibacterial mechanism of action (substance)Drug erzirrp59-27-4537Xedieucmo of breath, HivesNort STAT[facility] Other (7 sources)PenicillinsPropensity to adverse reactions to bezj48-58-4239Kwsib, RashBON DIAMOND CHILDREN'S MEDICAL CENTERTeez.by (14 sources)TobramycinDrug Ewxvgcm64-20-9870SudaKHB SECOURS [place] (7 sources)Fenofibrate; Translations: [FENOFIBRATE MICRONIZED]Drug Allergy 15-01-8257YlzUeufzs Repository (7 sources)Sulfonamides (Antibiotic); Translations: [SULFA (SULFONAMIDE ANTIBIOTICS)]Propensity to adverse reactions to drug (disorder)48-47-1771Riwizio ReactionProMedica Repository (1 source)BaclofenDrug Bcgeviu32-96-2170ZgcbdrsfgTrinity [facility] Rep[facility] (1 source)FenofibrateDrug Xjsdrdh21-71-6923ZwajidulcTrinity Health [facility] Rep[facility] (1 source)LatexDrug allergy (disorder)84-22-9442FtnxwzihtTrinity Health [facility] Repository (1 source)levoFLOXacinDrug Taoylrs64-27-5988TkecfdcfxTrinity Health [facility] Repository (1 source)PenicillinsDrug allergy (disorder)75-78-5904MrhpjlvyuTrinity Health [facility] Repository (13 sources)BaclofenDrug Rhsajhl51-73-7321Dcsav, Shortness of breathNOMS Healthcare (13 sources)FenofibrateDrug Ukrpglj16-03-2979CT intoleranceNOMS Healthcare (14 sources)fluvastatin; Translations: [FLUVASTATIN]Drug Tlafctp61-52-8625SD[facility] (13 sources)LatexAllergy to yroxiebvm61-92-2743Xwvtnibnfxb, Shortness of breath [facility] (13 sources)PenicillinsDrug Nmpxxcmctsm94-19-1057Iuqdm, RashNOMS Healthcare (14 sources)Phenazopyridine; Translations: [PHENAZOPYRIDINE]Drug Allergy 93-17-0299FS intoleranceNOMS Healthcare (1 source)natural latex rubber; Translations: [LATEX, NATURAL RUBBER]Propensity to adverse reactions to drug (disorder)28-42-6648BdaahuvsrkDayton [facility] Rep[facility] Medications Current Medications MedicationDrug Class(es)DatesSig (Normalized)Sig (Original)amLODIPine 2.5 mg oral tablet (1 source)Dihydropyridine Calcium Channel Blockertake 1 tablet by mouth once dailyamLODIPine (Norvasc) 2.5 mg tablet Take 1 tablet (2.5 mg) by mouth once daily. Activeaspirin 81 mg delayed release oral tablet (20 sources)Platelet Aggregation Inhibitor, Nonsteroidal Anti-inflammatory Drug Start: 43-21-2739btid 1 tablet by mouth once dailyaspirin 81 mg EC tablet Indications: Atherosclerosis of coronary artery bypass graft of [place] heart without angina pectoris , History of coronary artery bypass graft take 1 tablet by mouth once daily 90 tablet 3 09/25/2023 ActiveStart: 46-33-1565sjfirkv 81 mg, Refills(s) 0 Start Date: 10/27/19 Status: Orderedtake 1 tablet by mouth every twenty-four hoursAspirin 81 mg 1 tablet Orally Once a day for 30 day(s) Active ASPIRIN 81 PO Take by mouth 0 Activeatorvastatin 20 mg oral tablet (20 sources)HMG-CoA Reductase InhibitorStart: 10-27-2019 End: 37-94-9186pmtf 1 tablet by mouth once dailyatorvastatin (Lipitor) 20 mg tablet Indications: Mixed hyperlipidemia Take 1 tablet (20 mg) by mouth once daily. 90 tablet 3 05/14/2024 08/13/2024 Discontinued (Therapy completed)take 1 tablet by mouth at bedtimeLipitor 40 MG 1 tablet Orally at hs for 30 day(s) ActiveBariatric Multivitamins with 45 mg Iron (4 sources)Start: 37-24-4139Oazytbhkg Multivitamins with 45 mg Iron Oral, Daily, Refill(s) 0 Start Date: 06/02/22 Status: OrderedCalcium (20 sources)Phosphate Binder, Calciumcalcium 200 MG tablet Take by mouth Active Calcium TABS TAKE 1 TABLET 3 times daily Quantity: 0 Refills: 0 Ordered: 15-Aug-2022 DO ActiveCalcium Carbonate (11 sources)take 1 tablet by mouth once dailycalcium carbonate (CALCIUM 500 ORAL) Take 1 tablet by mouth once daily. Activecalcium carbonate (OS-ARLEY) 600 mg (1,500 mg) tablet Take 500 mg by mouth 3 (three) times a day withmeals. Active take 1 tablet by mouth once dailycalcium carbonate (CALCIUM 500 ORAL) Take 1 tablet by mouth once daily. 0 Activetake 1 tablet by mouth every twelve hours Calcium 600 MG 1 tablet with meals Orally Twice a day for 30 day(s) Active calcium chloride 0.0014 meq/ml / potassium chloride 0.004 meq/ml / sodium chloride 0.103 meq/ml / sodium lactate 0.028 meq/ml injectable solution (1 source)Start: 53-13-6460sxjsqemy ringers IV soln infusioncholecalciferol 0.125 mg oral capsule (3 sources)Vitamin Dtake 2 capsules by mouth four times weeklycholecalciferol, vitamin D3, (VITAMIN D3) 5,000 units capsule Take 10,000 Units by mouth 4 (four) times a week. Activecitalopram 40 mg oral tablet (20 sources)Serotonin Reuptake InhibitorStart: 09-24-5658rjpo 1 tablet by mouth once dailycitalopram (CeleXA) 40 mg tablet Take 1 tablet (40 mg) by mouth once daily. 08/03/2024 ActiveStart: 81-57-8085perr 4 tablets by mouth once daily Citalopram 10 mg tablet Active 40 MG PO Daily November 01, 2022 12:00amStart: 05-33-6087jvaq 10 mg by mouth once dailyCitalopram Active 10 MG PO Daily November 01, 2022 1:00am End: 58-88-4286qvscuzvqpq (CeleXA) 20 MG tablet Take 20 mg by mouth Activetake 2 tablets by mouth once dailycitalopram (CELEXA) 10 MG tablet Take 2 tablets by mouth daily 0 Activeclopidogrel 75 mg oral tablet (11 sources)P2Y12 Platelet InhibitorStart: 09-05-2024 End: 19-11-2308cvyz 1 tablet by mouth once dailyclopidogrel (Plavix) 75 mg tablet Indications: Atherosclerosis of coronary artery bypass graft of [place] heart without angina pectoris , S/P PTCA (percutaneous transluminal coronary angioplasty) , History of coronary artery bypass graft Take 1 tablet (75 mg) by mouth once daily. 90 tablet 3 09/05/2024 09/05/2025 Activediclofenac sodium 0.03 mg/mg topical gel (16 sources)Nonsteroidal Anti-inflammatory DrugStart: 57-52-4103dmnlvesguk sodium 3 % gel twice a day. 12/28/2020 ActiveStart: 84-61-9128Hqvihztytd Sodium 3 % External Gel APPLY SPARINGLY TO THE AFFECTED AREA(S) TWICE DAILY. Quantity: 0Refills: 0 Ordered: 28-Dec-2020 DO Start : 28-Dec-2020 Activedocusate sodium 100 mg oral capsule (17 sources)take 1 capsule by mouth twice dailydocusate sodium (Colace) 100 mg capsule Take 1 capsule (100 mg) by mouth 2 times a day. Activeergocalciferol 1.25 mg oral capsule (3 sources)Provitamin D2 CompoundStart: 67-40-2404ljvm 1 capsule by mouth two times weeklyVitamin D (Ergocalciferol) 17957 UNIT 1 capsule Orally TWICE a Week for 90 day(s) May, Activeestradiol 0.1 mg/ml vaginal cream (5 sources)EstrogenStart: 65-22-2638Mlwkofqbs 0.01 % (0.1 mg/gram) cream Active 1 APPLICATOR VAGINAL Four times daily August 19, 2024 12:00amStart: 37-33-8021gihjerjvi (Estrace) 0.01 % (0.1 mg/gram) vaginal cream Insert into the vagina once daily. 07/23/2024 ActiveStart: 06-89-4163Tjzhpfx 0.1 mg/g Cream See Instructions, 42.5 gm, Refill(s) 6, apply a pea-sized amount vaginally and around the urethra nightly x 3 weeks, then 3x per week thereafter, [id number], 160, cm, 04/10/24 15:13:00 EDT, Height/Length Dosing, 74, kg, 04/10/24 15:13:00 EDT, Weight Dosing Start Date: 04/10/24 Status: Ordered fluticasone propionate 0.05 mg/actuat metered dose nasal spray (20 sources)CorticosteroidStart: 01-17-2024 End: 74-96-8417ybsp 2 spray(s) nasal route in the morningfluticasone propionate (FLONASE) 50 mcg/actuation nasal spray Administer 2 sprays into each nostrilin the morning. 16 g 11 02/14/2024 ActiveStart: 64-62-0102Jsfgpgcdakb Propionate 50 mcg/actuation spray,suspension Active 1 SPRAY INTRANASAL Daily November 01, 2022 12:00amStart: 98-81-2967jtwc 1 spray(s) nasal route twice dailyfluticasone (Flonase) 50 mcg/actuation nasal spray Administer 1 spray into affected nostril(s) 2 times a day. 11/26/2020 ActiveStart: 22-22-6035pjrd 1 spray(s) nasal route twice dailyFluticasone Propionate 50 MCG/ACT Nasal Suspension USE 1 SPRAY IN EACH NOSTRIL TWICE DAILY. Quantity: 0 Refills: 0 Ordered: 26-Nov-2020 DO Start : 26-Nov-2020 ActiveStart: 64-11-1563xlylizwmknw 0.05 mg/inh Nasal [place] Refill(s) 0 Start Date: 04/30/20 Status: OrderedStart: 10-24-2017 End: 74-50-9380negc 2 spray(s) nasal route once dailyfluticasone (FLONASE) 50 mcg/actuation nasal spray Indications: Chronic pansinusitis Administer 2 sprays into each nostril daily. 16 g 10/24/2017 02/29/2024 Discontinued (Duplicate Listing)fluticasone 0.05 mg/inh Nasal [place] (3 sources)Start: 25-47-8259dbaxekulamk 0.05 mg/inh Nasal [place] Refill(s) 0 Start Date: 04/30/20 Status: Orderedfurosemide 40 mg oral tablet (3 sources)Loop Diuretictake 1 tablet by mouth every twenty-four hoursLasix 40 MG 1 tablet Orally Once a day for 30 day(s) ActivehydroCHLOROthiazide 12.5 mg oral tablet (20 sources)Thiazide DiureticStart: 07-19-2023 End: 33-90-7089lzrc 6.25 mg by mouth once dailyhydrochlorothiazide 12.5 mg Tab 6.25 mg = 0.5 tab(s), Oral, Daily, X 90 day(s), # 45 tab(s), Refills(s) 3, Pharmacy: [facility], 160, cm, 06/02/22 8:29:00 EDT, Height/Length Dosing, 61.2, kg, 06/02/22 8:29:00 EDT, Weight Dosing Start Date: 07/19/23 Stop Date: 07/13/24 Status:OrderedStart: 68-65-3647bmqz 6.26 mg by mouth once dailyHydrochlorothiazide 12.5 mg tablet Active 6.26 MG PO Daily November 01, 2022 12:00amStart: 81-40-3469dthf 6.26 mg by mouth once daily Hydrochlorothiazide Active 6.26 MG PO Daily November 01, 2022 1:00amStart: 12-11-2020 End: 48-05-1625ospg 0.5 tablet by mouth once dailyhydroCHLOROthiazide (HYDRODiuril) 12.5 mg tablet Take 0.5 tablets (6.25 mg) by mouth once daily. 08/13/2024 Discontinued (Discontinued by another clinician)Start: 51-15-9145tnof 1 tablet by mouth once dailyhydrochlorothiazide 12.5 mg Tab 12.5 mg = 1 tab(s), Oral, Daily, # 90 tab(s), Refills(s) 3, Pharmacy: [facility], 160, cm, 05/27/21 8:19:00 EDT, Height/Length Dosing, 61, kg, 05/27/21 8:19:00 EDT, Weight Dosing Start Date: 10/07/21 Status: Ordered ketorolac tromethamine 10 mg oral tablet (1 source)Nonsteroidal Anti-inflammatory Drug, Cyclooxygenase InhibitorStart: 06-18-2023 End: 07-64-6716kfzu 1 tablet by mouth every six hours as needed for pain ketorolac (TORADOL) 10 MG tablet Take 1 tablet by mouth every 6 hours as needed for Pain 10 tablet 0 06/18/2023 06/17/2024 Activelisinopril 2.5 mg oral tablet (3 sources)Angiotensin Converting Enzyme Inhibitortake 1 tablet by mouth every twenty-four hoursLisinopril 2.5 MG 1 tablet Orally Once a day for 30 day(s) ActivemetFORMIN hydrochloride 500 mg oral tablet (3 sources)BiguanideStart: 97-95-8844lcjz 1 tablet by mouth twice daily Glucophage XR 500 MG 1 tablet Orally twice a days for 90 days Nov, Active2 ml metoclopramide 5 mg/ml prefilled syringe (1 source)Dopamine-2 Receptor AntagonistStart: 06-18-2023 End: 10-29-489006 mg, IntraVENous, ONCE PRN, 1 dose, Starting on Sun06/18/23 at 1449, Until Sun06/19/23 at 1449, Nausea Secondary antiemetic therapy. PACU only 24 hr mirabegron 50 mg extended release oral tablet (5 sources)beta3-Adrenergic AgonistStart: 08-05-2024 End: 08-40-3660xzpr 1 tablet by mouth once dailymirabegron (Myrbetriq) 50 mg tablet extended release 24 hr 24 hr tablet Take 1 tablet (50 mg) by mouth once daily. 08/05/2024 ActiveStart: 04-10-2024 End: 34-56-2485nqrf 1 tablet by mouth once dailymirabegron 25 mg oral tablet, extended release 25 mg = 1 tab(s), Oral, Daily, do not fill both mirabegron AND vibegron. only fill whichever has lower co-pay., X 30 day(s), # 30 tab(s), Refills(s) 11,Pharmacy: [id number], 160, cm, 04/10/24 15:13:00 EDT, Height/Length Dosing, 74, kg, 04/10/24 15:13:00 EDT, Weight Dosing Start Date: 04/10/24 Stop Date: 04/05/25 Status: Orderedmometasone furoate 1 mg/ml topical cream (15 sources)CorticosteroidStart: 00-85-8585Swncuplnko 0.1 % cream Active 1 APPLIC TOPICAL Daily August 19, 2024 12:00amStart: 04-28-7442jqburvskbl (Elocon) 0.1 % cream twice a day. 12/25/2020 ActiveStart: 69-90-7798Zpybdntaav Furoate 0.1 % External Cream APPLY SPARINGLY TO AFFECTED AREAS TWICE DAILY.(AM AND PM). Quantity: 0 Refills: 0 Ordered: 25-Dec-2020 DO Start : 25-Dec-2020 Activemontelukast 10 mg oral tablet (3 sources)Leukotriene Receptor Antagonisttake 1 tablet by mouth every twenty- four hoursSingulair 10 MG 1 tablet in the evening Orally Once a day for 30 day(s) ActiveMulti Vitamin+ (4 sources)Start: 95-17-3684Yuqdd Vitamin+ Refill(s) 0 Start Date: 10/27/19 Status: OrderedMultiple Vitamin (MVI, BARIATRIC ADVANTAGE VITABAND, CHEW TAB) (1 source)take 1 tablet by mouth once dailyMultiple Vitamin (MVI, BARIATRIC ADVANTAGE VITABAND, CHEW TAB) Take 1 tablet by mouth daily 0 ActiveMultiple Vitamins-Minerals (PRESERVISION AREDS 2 PO) (1 source)Multiple Vitamins-Minerals (PRESERVISION AREDS 2 PO) Take by mouth 0 Lfcbchuavkiyke-oijc-WF-calcium &mins (THERAGRAN-M) 9 mg iron-400 mcg tablet (3 sources)xprpddjk-eqxe-MZ-calcium &mins (THERAGRAN-M) 9 mg iron-400 mcg tablet Take 1 tablet by mouth inthe morning. Activemultivit-min/ferrous fumarate (MULTI VITAMIN ORAL) (3 sources)take 1 tablet by mouth twice dailymultivit-min/ferrous fumarate (MULTI VITAMIN ORAL) Take 1 tablet by mouth 2 times a day. Activetake 1 tablet by mouth twice dailymultivit-min/ferrous fumarate (MULTI VITAMIN ORAL) Take 1 tablet by mouth 2 times a day. 0 FlkzbzJmagsepnnsda-Hms-Oxmg-Fa-Vit K (Bariatric Multivitamins) 45 mg iron- 800 mcg-120 mcg Capsule (4 sources)Start: 80-48-6461katy 1 capsule by mouth twice daily Diasuktmcqsj-Dzm-Dkfk-Fa-Vit K (Bariatric Multivitamins) 45 mg iron- 800 mcg-120 mcg Capsule Active1 CAP PO Twice daily November 01, 2022 1:00amStart: 36-51-0846zpir 1 capsule by mouth twice lragcWyhrfzfcbgbr-Spo-Duoj-Fa-Vit K (Bariatric Multivitamins) 45 mg iron- 800 mcg-120 mcg Capsule Active1 CAP PO Twice daily November 01, 2022 12:00amMultivitamins (3 sources)Multivitamins Orally daily ActiveNIFEdipine 60 mg oral tablet (3 sources)Dihydropyridine Calcium Channel Blockertake 1 capsule by mouth once dailyProcardia 60 mg 1 capsule Orally daily for 30 day(s) Activenitroglycerin 0.4 mg sublingual tablet (18 sources)Nitrate VasodilatorStart: 12-25-2020 End: 48-13-3957cfxqugsvqyfjp (Nitrostat) 0.4 mg SL tablet Indications: Atherosclerosis of coronary artery of [place] heart without angina pectoris, unspecified vessel or lesion type Place 1 tablet (0.4 mg) under thetongue every 5 minutes if needed for chest pain. 90 tablet 3 08/14/2023 ActiveNitrostat 0.4 MG 1 tablet under the tongue Sublingual as directed for 30 day(s) Activenystatin 100 unt/mg topical powder (17 sources)Polyene AntifungalStart: 25-47-7375hizriqxk ([facility]) 100,000 unit/gram powder apply topically to affected area twice a day if needed ActiveStart: 97-34-8300IOPHUB powder 04/19/2018 Activeomega-3 acid ethyl esters (alf) 1000 mg oral capsule (3 sources)take 2 capsules by mouth every twelve hoursLovaza 1 GM 2 capsules Orally Twice a day for 30 day(s) Active2 ml ondansetron 2 mg/ml injection (8 sources)Serotonin-3 Receptor AntagonistStart: 06-18-2023 End: mg, IntraVENous, ONCE PRN, 1 dose, Starting on Sun06/18/23 at 1449, Until Sun06/19/23 at 1449, Nausea Initial antiemetic therapy. PACU only Start: 77-23-6675rgga 1 tablet by mouth every eight hours as needed for nausea ondansetron ODT (ZOFRAN ODT) 4 mg disintegrating tablet Dissolve 1 tablet (4 mg total) on tongue every 8 (eight) hours as needed for nausea for up to 10 doses. 10 tablet 10/04/2022 ActiveStart: 04-17-2018 End: 67-87-9714kvbg 1 tablet by mouth every eight hours as needed for nausea and vomitingOndansetron (Zofran Odt) 8 mg tablet,disintegrating Discontinued 8 MG PO Q8H as needed for nausea and vomiting 10 5 April 16, 2018 11:00pm April 20, 2018 11:00pm April 21, 2018 11:01pmpolyethylene glycol 3350 281520 mg / potassium chloride 2970 mg / sodium bicarbonate 6740 mg / sodium chloride 5860 mg / sodium sulfate 06211 mg powder for oral solution (3 sources)Osmotic LaxativeStart: 23-64-7422fqgn 236 g by mouth onceGolytely 236 GM as directed Orally the day prior to colonoscopy for 1 days Oct, Activeprasugrel 10 mg oral tablet (3 sources)P2Y12 Platelet Inhibitortake 10 mg by mouth once dailyeffient 10 mg once a day po ActivePreserVision AREDS (2 sources)Start: 75-01-8661HhhmvzYblepq AREDS Refill(s) 0 Start Date: 04/10/24 Status: Orderedpromethazine hydrochloride 25 mg oral tablet (7 sources)PhenothiazineStart: 32-50-0772umsr 1 tablet by mouth every four hours as needed for nauseaPromethazine 25 mg tablet Active 25 MG PO Q4H as needed for Nausea November 01, 2022 12:00amtake 1 tablet by mouth every twelve hours Promethazine HCl 25 MG 1 tablet as needed Orally every 12 hrs ActiveRABEprazole sodium 20 mg delayed release oral tablet (20 sources)Proton Pump InhibitorStart: 06-65-8342uuah 1 mg by mouth once daily rabeprazole 20 mg oral enteric coated tablet mg tab(s), Oral, Daily, Refills(s) 0 Start Date: 05/27/21 Status: OrderedStart: 26-92-0398TSBPedirezk Sodium 20 MG Oral Tablet Delayed Release Quantity: 180 Refills: 0 Ordered: 27-Dec-2020 DO Start : 27-Dec-2020 CompleteStart: 90-55-6757lmrl 1 tablet by mouth twice daily Rabeprazole 20 mg tablet,delayed release (DR/EC) Active 20 MG PO Twice daily April 16, 2018 11:00pmtake 1 tablet by mouth three times dailyAciphex EC tablet Take 1 tablet (20 mg) by mouth 3 times a day. Activesod xdhks-jalphz-hldyme bottle (NEILMED SINUS RINSE COMPLETE) packet with rinse device nasal solution (3 sources)Start: 09-22-9127htsq 1 dose nasal route once dailysod eelqh-itslvz-iaulec bottle (NEILMED SINUS RINSE COMPLETE) packet with rinse device nasal solution Indications: S/P nasal septoplasty Administer 1 packet into each nostril daily. 60 packet 09/13/2017 Active5 ml sodium chloride 9 mg/ml injection (9 sources)Start: 86-65-3310mfds 1 dose intravenously twice daily5-40 mL, IntraVENous, EVERY 12 HOURS SCHEDULED (2 [...] 20 mL/lumen Pre-op (day of surgery) Start: 92-89-3699cxwl 1 dose intravenously twice daily5-40 mL, IntraVENous, EVERY 12 HOURS SCHEDULED (2 times per day), First dose on Sun06/18/23 at 2100, Until Discontinued For Line Patency: Peripheral IV = 5 mL; Midline or Central Line = 10 mL/lumen. If following IV push medication, administer flush at same rate as the IV push. Flush volume is determined by type of infusion therapy being given. For non-viscoussolutions use: Peripheral IV = 5 mL Midline or Central Line = 10 mL/lumen&nbsp ; For viscous solutions (i.e. blood components, parenteral nutrition, contrast media, or after obtaining blood sample) use: Peripheral IV = 10 mL Midline or Central Line = 20 mL/lumen PACU onlyStart: 87-37-9777nnyrnd chloride flush 0.9 % injection 5-40 mLStart: 02-53-1066XulyfZMEozm, at 5-250 mL/hr, PRN, if patient receiving piggyback infusions and maintenance fluids are not ordered OR KVO fluids to protect IV site / prevent frequent line interruptions/ long duration, Starting on Sun06/18/23 at 1449 For piggyback infusion, administer at same rate as piggyback for atotal of 25 mL. Enter 25 mL into dose field and piggyback rate into rate field of order. If piggyback is infusing at a rate less than 100 mL/hr, enter 25 mL into dose field and 100 mL/hr into rate field of order. For KVO fluids, enter rate of 20 mL/hr or less into rate field of order. PACU onlyStart: 65-60-6838gzlm 5-40 mL intravenously once as needed5-40 mL, IntraVENous, PRN, Starting on Sun06/18/23 at 1449, Until Discontinued, Line Care, After every IV line use For Line Patency: Peripheral IV = 5 mL; Midline or Central Line = 10 mL/lumen.&nb sp; If following IV push medication, administer flush [...] or Central Line = 20 mL/lumen PACU onlyStart: .9 % sodium chloride infusion Start: 94-50-5855hodphr chloride flush 0.9 % injection 5-40 mLtamsulosin hydrochloride 0.4 mg oral capsule (20 sources)alpha-Adrenergic BlockerStart: 10-26-2020 End: 73-08-9396nakd 1 capsule by mouth twice dailyFlomax 0.4 mg Cap 0.4 mg = 1 cap(s), Oral, BID, X 90 day(s), # 180 cap(s), Refills(s) 3, Pharmacy: [facility], 160, cm, 05/27/21 8:19:00 EDT, Height/Length Dosing, 61, kg, 05/27/21 8:19:00 EDT, Weight Dosing Start Date: 03/14/22 Stop Date: 03/09/23 Status: OrderedStart: 07-18-6925lwzo 1 capsule by mouth once daily tamsulosin (Flomax) 0.4 mg 24 hr capsule Take 1 capsule (0.4 mg) by mouth once daily. 10/26/2020 Activetake 1 capsule by mouth every twenty-four hours in the morningtamsulosin (Flomax) 0.4 MG 24 hr capsule Take 0.4 mg by mouth in the morning. ActivetraMADol hydrochloride 50 mg oral tablet (7 sources)Opioid AgonistStart: 41-87-2582cvjc 1 tablet by mouth three times daily as needed for painTramadol 50 mg tablet Active 50 MG PO Three times daily as needed for Pain November 01, 2022 12:00amtake 1 tablet by mouth every twenty-four hourstraMADol HCl 50 MG 1 tablet as needed Orally Once a day Active ubidecarenone 200 mg oral capsule (3 sources)take 1 capsule by mouth every twenty-four hoursCoenzyme Q-10 200 MG 1 capsule with a meal Orally Once a day for 30 day(s) Activevibegron 75 MG Oral Tablet [Gemtesa] (1 source)Start: 04-10-2024 End: 07-49-6422vjdr 1 tablet by mouth once dailyGemtesa 75 mg oral tablet 75 mg = 1 tab(s), Oral, Daily, X 30 day(s), # 30 tab(s), Refills(s) 11, Pharmacy: [id number], 160, cm, 04/10/24 15:13:00 EDT, Height/Length Dosing, 74, kg, 04/10/24 15:13:00 EDT, Weight Dosing Start Date: 04/10/24 Stop Date: 04/05/25 Status: Orderedvit C,Y-Os-whkif-lutein-zeaxan (PRESERVISION AREDS- 2) 250-90-40-1 mg capsule (1 source)vit C,Q-Mu-kusds-lutein-zeaxan (PRESERVISION AREDS-2) 250-90-40-1 mg capsule Take 2 tablets by mouth in the morning and at bedtime. Activevit C/E/Zn/coppr/lutein/zeaxan (PRESERVISION AREDS-2 ORAL) (3 sources)vit C/E/Zn/coppr/lutein/zeaxan (PRESERVISION AREDS-2 ORAL) Take by mouth twice a day. Activevit C/E/Zn/coppr/lutein/zeaxan (PRESERVISION AREDS-2 ORAL) Take by mouth twice a day. 0 ActiveVitamin B Complex 1,000 (3 sources)Start: 37-20-6843Ilvwvjd B Complex 1,000 Orally daily May, ActiveVitamin B-12 1000 MCG (2 sources)take 1 tablet by mouth once dailyVitamin B-12 1000 MCG 1 tablet Orally Once a day for 30 day(s) Activevitamin b12 1 mg oral tablet (1 source)Vitamin H57ppzr 1 tablet by mouth every twenty-four hoursVitamin B-12 1000 MCG 1 tablet Orally Once a day for 30 day(s) Activevitamins A,C,P-fqed-rmznzd (1 source)Start: 30-82-6981emgtlpel A,C,A-tbcj-bqeflk Active PO August 19, 2024 12:00amZyrtec Hives Relief 10 MG (3 sources)take 1 tablet by mouth once dailyZyrtec Hives Relief 10 MG 1 tablet Orally Once a day for 30 day(s) Active Completed/Discontinued Medications MedicationDrug Class(es)DatesSig (Normalized)Sig (Original)acetaminophen 325 mg oral tablet (4 sources)Start: 06-18-2023 End: 12-34-1848wwyhwvayjwuqk (TYLENOL) tablet 650 mgtake 2 tablets by mouth every six hours as needed for painacetaminophen (TYLENOL EXTRA STRENGTH) 500 mg tablet Take 2 tablets (1,000 mg total) by mouth every6 (six) hours as needed for pain. Activeacetaminophen 325 mg / oxyCODONE hydrochloride 5 mg oral tablet (8 sources)Opioid AgonistStart: 04-24-2018 End: 70-58-3843cnrs 1 tablet by mouth every four to six hours as needed for pain Oxycodone-Acetaminophen 5-325 mg tablet Discontinued 1 TAB PO EVERY 4-6 HOURS as needed for pain 20July 2017April 27, 2018 11:00pm April 28, 2018 11:01pmStart: 18-77-8187ywxz 2 tablets by mouth every four hours as needed for painOxycodone-Acetaminophen (Percocet) 5-325 mg tablet Active 2 TAB PO Q4H as needed for pain April 17, 2018ascorbic acid 226 mg / beta carotene 11840 unt / cuprous oxide 0.8 mg / dl-alpha tocopheryl akefjtx368 unt / zinc oxide 34.8 mg oral capsule (11 sources)Vitamin Ctake 2 capsules by mouth twice dailyPreserVision AREDS Oral Capsule TAKE 2 CAPSULE Twice daily Quantity: 0 Refills: 0 Ordered: 17-Aug-2021 DO Activecarvedilol 6.25 mg oral tablet (9 sources)alpha-Adrenergic Boom, beta-Adrenergic BlockerStart: 11-03-2020 Carvedilol 6.25 MG Oral Tablet Quantity: 180 Refills: 0 Ordered: 03-Nov-2020 DO Start : 03-Nov-2020 CompleteStart: 04-17-2018 End: 32-30-1060xnui 1 tablet by mouth twice dailyCarvedilol 25 mg tablet Discontinued 25 MG PO Twice daily April 16, 2018 11:00pm November 01, 2022 10:47amtake 1 tablet by mouth every twelve hoursCarvedilol 12.5 MG 1 tablet with food Orally Twice a day for 30 day(s) Activecephalexin 500 mg oral capsule (4 sources)Cephalosporin AntibacterialStart: 04-17-2018 End: 88-10-6307bdpz 1 capsule by mouth twice dailyCephalexin (Keflex) 500 mg capsule Discontinued 500 MG PO Twice daily 14 7 April 16, 2018 11:00pm April 22, 2018 11:00pm April 23, 2018 11:01pmcevimeline 30 mg oral capsule (20 sources)Cholinergic Receptor AgonistStart: 11-03-2020 End: 90-84-0106bzah 1 capsule by mouth three times dailycevimeline (EVOXAC) 30 mg capsule Indications: Xerostomia Take 1 capsule (30 mg total) by mouth 3 (t hree) times a day. 270 capsule 4 02/14/2024 02/29/2024 Discontinued (Duplicate Listing)Start: 12-38-5086mtxz 1 mg by mouth three times dailycevimeline See Instructions, mg Oral TID, Refills(s) 0 Start Date: 1/27/20 Status: Ordered Start: 04-17-2018 End: 53-29-9719qgpkehrhga (EVOXAC) 30 mg capsule Indications: Xerostomia TAKE 1 CAPSULE 4 TIMES DAILY 360 capsule 3 08/17/2022 01/17/2024 Discontinued (Reorder) take 25 mg by mouth three times dailyCEVIMELINE HCL PO Take 25 mg by mouth 3 times daily 0 ActivedimenhyDRINATE 50 mg oral tablet (1 source)Start: 06-18-2023 End: 43-83-0875pypizxgTHZFWUS (DRAMAMINE) tablet 50 mgStart: 06-18-2023 End: 59-04-3438obtkvzcXFVZMGC (DRAMAMINE) tablet 50 mgdoxycycline hyclate 100 mg oral tablet (1 source)Tetracycline-class DrugStart: 72-23-9822oxvm 1 tablet by mouth twice daily, then take 1 tablet by mouth once dailyDoxycycline Hyclate 100 MG Oral Tablet take 1 tablet by mouth twice a day for 14 days then 1 tabletonce daily for 14 days Quantity: 42 Refills: 0 Ordered: 18-Oct-2020 DO Start : 18-Oct-2020 Completefamotidine 20 mg oral tablet (3 sources)Histamine-2 Receptor AntagonistStart: 10-04-2022 End: 65-71-2142fvoj 1 tablet by mouth in the morning, then take 1 tablet by mouth at bedtimefamotidine (PEPCID) 20 mg tablet Take 1 tablet (20 mg total) by mouth in the morning and 1 tablet (20 mg total) before bedtime. 20 tablet 10/04/2022 02/29/2024 Discontinued (Therapy completed)fenofibric acid 135 mg delayed release oral capsule (3 sources)Peroxisome Proliferator Receptor alpha Agonisttake 1 capsule by mouth every twenty-four hoursTrilipix 135 MG 1 capsule Orally Once a day for 30 day(s) Not-Taking2 ml fentaNYL 0.05 mg/ml injection (2 sources)Opioid AgonistStart: 91-20-893339 mcg, IntraVENous, EVERY 5 MIN PRN, 2 doses, Starting on 06/18/23 at 1449, Until Discontinued,Pain Severe (7-10) For Phase I. If Phase II oral narcotics have been administered in the last 60 minutes, do not administer IV narcotics unless specifically approved by provider. PACU onlyStart: mcg, IntraVENous, EVERY 5 MIN PRN, 2 doses, Starting on 06/18/23 at 1449, Until Discontinued,Pain Moderate (4-6) For Phase I. If Phase II oral narcotics have been administered in the last 60 mi nutes, do not administer IV narcotics unless specifically approved by provider. PACU onlyfluconazole 100 mg oral tablet (1 source)Azole AntifungalStart: 48-38-9228ayjt 1 tablet by mouth once daily Fluconazole 100 MG Oral Tablet take 1 tablet by mouth once daily Quantity: 10 Refills: 0 Ordered: 17-Nov-2020 DO Start : 17-Nov-2020 Completehydrocortisone 10 mg/ml / neomycin 3.5 mg/ml / polymyxin b 77873 unt/ml ophthalmic suspension (3 sources)Aminoglycoside Antibacterial, Polymyxin-class Antibacterial, CorticosteroidStart: 06-28-0874hlye 2 drop(s) into the eye(s) four times daily Issazqkc-Jnrffnbyv-FD 3.5-41459-2 Ophthalmic Suspension instill 2 drops INTO AFFECTED EYE four times a day Quantity: 8 Refills: 0 Ordered: 14-Jun-2021 DO Start : 13-Jun-2021 ActivelevoFLOXacin 750 mg oral tablet (1 source)Quinolone AntimicrobialStart: 88-12-9826ntpl 1 tablet by mouth once dailylevoFLOXacin 750 MG Oral Tablet take 1 tablet by mouth once daily for 10 days Quantity: 10 Refills:0 Ordered: 17-Nov-2020 DO Start : 17-Nov-2020 Complete Multi Vitamin Oral Tablet (11 sources)take 1 tablet by mouth twice dailyMulti Vitamin Oral Tablet Take 1 tablet twice daily Quantity: 0 Refills: 0 Ordered: 17-Aug-2021 DO Active nitrofurantoin, macrocrystals 25 mg / nitrofurantoin, monohydrate 75 mg oral capsule (4 sources)Nitrofuran AntibacterialStart: 04-24-2018 End: 50-81-5077fkth 1 capsule by mouth twice daily at mealtimeNitrofurantoin Monohyd/M-Cryst (Macrobid) 100 mg capsule Discontinued 100 MG PO Twice daily April 23, 2018 11:00pm November 01, 2022 10:47am must administer with a meal/foodoxyCODONE hydrochloride 5 mg oral tablet (1 source)Opioid AgonistStart: 06-18-2023 End: 25-72-9741rnvo 1 dose by mouth once5 mg, Oral, ONCE PRN, 1 dose, Starting on Sun06/18/23 at 1449, Until Sun06/18/23 at 1505, Pain Moderate (4-6), Pain Severe (7-10) PHASE II PACU onlypredniSONE 10 mg oral tablet (1 source)Start: 32-53-7851qyid 5 tablets by mouth once daily, then take 4 tablets by mouth once dailypredniSONE 10 MG Oral Tablet take 5 tablets by mouth once daily X2 DAYS, 4 tablets daily X2 DA... (REFER TO PRESCRIPTION NOTES). Quantity: 30 Refills: 0 Ordered: 18-Oct-2020 DO Start : 18-Oct-2020 Bmsyrvid83 hr ranolazine 500 mg extended release oral tablet (7 sources)Anti-anginalStart: 04-17-2018 End: 41-86-8130vcdz 1 tablet by mouth twice dailyRanolazine 500 mg tablet extended release 12 hr Discontinued 500 MG PO Twice daily April 16, 2018 1 1:00pm November 01, 2022 10:47amtake 1 tablet by mouth every twelve hoursRanexa 500 MG 1 tablet Orally every 12 hours for 30 day(s) Activespironolactone 25 mg oral tablet (3 sources)Aldosterone Antagonisttake 1 tablet by mouth once dailySpironolactone 25 MG one half tab Orally daily for 30 day(s) Not-TakingVersabase Cream (1 source)Start: 69-58-8111Vwvroozms Cream Quantity: 15 Refills: 0 Ordered: 07-Sep-2020 DO Start : 07-Sep-2020 Complete Problems Active Problems Problem ClassificationProblemDateDocumented DateEpisodic/ChronicAbdominal pain (16 sources)Abdominal pain; Translations: [Unspecified abdominal pain]Onset: 08-00-5610VcofrwboIexpd myocardial infarction (3 sources)Acute myocardial infarction; Translations: [Acute myocardial infarction, unspecified]Onset: 983041-32-3010YjhoezfJvkusvg tract disease (4 sources)Choledochal cyst; Translations: [Other specified diseases of biliary tract]ChronicCalculus of urinary tract (12 sources)Kidney stone; Translations: [Calculus of kidney]Onset: 06-02-2022 EpisodicCardiac and circulatory congenital anomalies (14 sources)Ventricular septal defect; Translations: [Ventricular septal defect] Onset: 307257-09-0338KwwxztdLnubtsp dysrhythmias (14 sources)Paroxysmal supraventricular tachycardia; Translations: [Paroxysmal supraventricular tachycardia]Onset: 985196-68-6316AczotfjMkzyxdqltzc and hemorrhagic disorders (3 sources)Disorder of hemostatic system; Translations: [Coagulation defect, unspecified]Onset: 698649-53-4760CqykjqiBnztgwbjchik of device; implant or graft (4 sources)Arteriosclerosis of coronary artery bypass graft; Translations: [Atherosclerosis of coronary arterybypass graft(s) without angina pectoris] Onset: 632163-34-2526FlappbuTalvdask atherosclerosis and other heart disease (20 sources)Coronary atherosclerosis; Translations: [Coronary atherosclerosis of [place] coronary artery]Onset: 72-46-8604RyvhfacGhzvdytw atherosclerosis and other heart disease (7 sources)Patient post percutaneous transluminal coronary angioplasty; Translations: [Coronary angioplasty status]Onset: 728192-86-4254Nqnnnaqt Diabetes mellitus without complication (3 sources)Diabetes mellitus; Translations: [Type 2 diabetes mellitus without complications]Onset: 251046-40-5216WbpbcxwAbdrxluf mellitus without complication (1 source)Diabetes mellitus without complicationOnset: 82-79-4725Lgkbqwssb of lipid metabolism (20 sources)Hyperlipidemia; Translations: [Other and unspecified hyperlipidemia] Onset: 503448-29-8132PudpborZuakkuvyzt disorders (3 sources)Gastroesophageal reflux disease; Translations: [Gastro-esophageal reflux disease without esophagitis]Onset: 084533-68-2906HxfcifhNxitshubj hypertension (20 sources)Benign essential hypertension; Translations: [Benign essential hypertension]Onset: 958548-42-2689CyiiyvrTblkagbhbhgke symptoms and ill- defined conditions (5 sources)Mixed incontinence; Translations: [Incontinence]Onset: 06-02-2022 ChronicGenitourinary symptoms and ill-defined conditions (2 sources)Genitourinary tract problem; Translations: [Other symptoms and signs involving the genitourinary system]Onset: 06-31-2978GadwtglpEfmcfqedlgcb; infection of eye (except that caused by tuberculosis or sexually transmitteddisease) (3 sources)Chronic allergic conjunctivitis; Translations: [Other chronic allergic conjunctivitis]Onset: 357964-26-3929PqyugszOmuloxbjvg disorders (2 sources)Postmenopausal bleeding; Translations: [Postmenopausal bleeding] Onset: 316900-82-2421SvnxeioNzetvgvhapb chest pain (3 sources)Atypical chest pain; Translations: [Other chest pain]Onset: 696751-65-8188OhkgheioTygud aftercare (1 source)buttermaker helper (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; Translations: [GROUP HOME CURRENT USE OF ASPIRIN]Onset: 52-72-1461BgqtutqrXdaaw aftercare (1 source)Other mcfp (current) drug therapy; Translations: [OTH GROUP HOME CURRENT DRUG THERAPY]Onset: 61-51-1335SjoxmdvrJhmle and ill-defined heart disease (3 sources)Heart disease; Translations: [Heart disease, unspecified]Onset: 307660-21-1778EyloirhBpdnc connective tissue disease (6 sources)Tendonitis of right wrist; Translations: [Other enthesopathies, not elsewhere classified]55-54-2996UbxpxpolAqexl connective tissue disease (4 sources)Muscle weakness of upper limb; Translations: [Other symptoms and signs involving the musculoskeletal system]59-04-2258QgmdmlfzZphun connective tissue disease (4 sources)Pain in right arm; Translations: [Pain in right arm]05-15-2025 EpisodicOther diseases of bladder and urethra (2 sources)Detrusor overactivity; Translations: [Overactive bladder]Onset: 99-53-3699HetjpqjEynol diseases of bladder and urethra (2 sources)Overactive elbsmrf66-73-1177CscuyqwYugpx diseases of bladder and urethra (2 sources)Pain in euqvlmc95-63-7427GjtebmxxDazfw gastrointestinal disorders (1 source)Intestinal malabsorption, unspecified; Translations: [INTESTINAL MALABSORPTION UNS]Onset: 67-87-6011MxkdiqiGikpd gastrointestinal disorders (2 sources)Bariatric surgery status; Translations: [BARIATRIC SURGERY STATUS] Onset: 15-49-2354TpulbvhdOvnzo gastrointestinal disorders (3 sources)Constipation; Translations: [Constipation, unspecified]EpisodicOther gastrointestinal disorders (1 source)Constipation, unspecifiedEpisodicOther liver diseases (3 sources)Elevated liver enzymes level; Translations: [Abnormal levels of other serum enzymes]EpisodicOther liver diseases (1 source)Abnormal levels of other serum enzymesEpisodicOther nervous system disorders (4 sources)Ulnar neuropathy of right arm; Translations: [Lesion of ulnar nerve, right upper limb]53-47-7439SvihobpMdnhz nervous system disorders (1 source)Carpal tunnel syndrome of left wrist; Translations: [Carpal tunnel syndrome, left upper limb]60-35-1660WalmmlgRyqko nervous system disorders (5 sources)Numbness; Translations: [Anesthesia of skin]78-74-8693GpvmzqptArwhi nervous system disorders (1 source)Paresthesia; Translations: [Paresthesia of skin]25-69-1091Cxnghbhn Other non-traumatic joint disorders (2 sources)Pain in wrist; Translations: [Pain in right wrist]19-59-1521Chonqiur Other non-traumatic joint disorders (4 sources)Pain of right wrist; Translations: [Pain in right wrist]05-15-2025 EpisodicOther non-traumatic joint disorders (2 sources)Chronic pain of right upper limb; Translations: [Pain in right wrist] 17-16-4081GquizvdcUrhmk nutritional; endocrine; and metabolic disorders (1 source)Hypervitaminosis D; Translations: [HYPERVITAMINOSIS D]Onset: 49-31-7919SlntuozVnvgx nutritional; endocrine; and metabolic disorders (2 sources)Body mass index 30+ - obesity; Translations: [Body mass index (BMI) 30.0-30.9, adult]Onset: 300891-90-3700FjgwrijWwjsn nutritional; endocrine; and metabolic disorders (2 sources)Body mass index (BMI) 30.0-30.9, adult; Translations: [Body mass index (BMI) 30.0-30.9, adult]Onset: 34-58-8510YsfycniVcofm nutritional; endocrine; and metabolic disorders (11 sources)Overweight in adulthood with body mass index of 25 or more but less than 30; Translations: [Overweight]EpisodicOther screening for suspected conditions (not mental disorders or infectious disease) (6 sources)Other specified abnormal findings of blood chemistry; Translations: [Patient encounter status]Onset: 06-65-7879LfzlgibeBcwuk skin disorders (1 source)Epidermoid cyst; Translations: [Epidermal cyst]11-70-5579BuvpzijyHnzcc skin disorders (1 source)Epidermal cyst; Translations: [Epidermal cyst]Onset: 06-18-2023 EpisodicOther upper respiratory disease (1 source)Allergic rhinitis, unspecified; Translations: [Allergic rhinitis, unspecified]Onset: 33-89-2379PhkratqRknbu upper respiratory disease (1 source)Allergic rhinitis; Translations: [Allergic rhinitis, unspecified] 18-16-7870HgtdoyzMgbmteiu codes; unclassified (4 sources)Other specified health status; Translations: [Other drug allergy] Onset: 776189-76-3438FxsxmxgdUvdqpbdffhnq (1 source)Presence of aortocoronary bypass graft / Z95.1(ICD-9)Onset: 08-29-2017 Unclassified (1 source)Athscl heart disease of [place] coronary artery w/o ang pctrs / I25.10(ICD-9)Onset: 95-84-3648Ldnaggziehaa (1 source)Pure hypercholesterolemia, unspecified / E78.00(ICD-9)Onset: 82-49-7433Liixsnomxlmz (2 sources)Encounter for preprocedural cardiovascular examination / Z01.810(ICD-9)Onset: 64-14-3560Tukyykyfxiqu (1 source)Old myocardial infarction / I25.2(ICD-9)Onset: 24-86-4758Aknaaffmmsoq (1 source)Coronary angioplasty status / Z98.61(ICD-9)Onset: 08-29-2017 Unclassified (1 source)Cardiomyopathy, unspecified / I42.9(ICD-9)Onset: 08-29-2017 Unclassified (1 source)Family history of diseases of the ms sys and connective tiss / Z82.69(ICD-9)Onset: 77-95-9787Qismicepfiuj (1 source)Family hx of ischem heart dis and oth dis of the circ sys / Z82.49(ICD-9)Onset: 84-36-1890Gjparalllspr (1 source)Patient encounter status; Translations: [Well female exam with routine gynecological exam]Unclassified (4 sources)Drug therapy zxwbyor89-82-2718Rtqfmdlfvmsk (4 sources)Finding of sensation of -91-9330Wglmcludbjio (1 source)CONTACT W/AND (SUSP) EXPOS COVID-19; Translations: [CONTACT W/AND (SUSP) EXPOS COVID-19]Onset: 55-90-6131Bqctmiobnjvw (1 source)Med RefillOnset: 63-71-9057Mcibahgvllas (2 sources)Chronic pain of right upper nhfj80-13-7868 Past or Other Problems Problem ClassificationProblemDateDocumented DateEpisodic/ChronicCancer of colon (2 sources)Personal history of other malignant neoplasm of large intestine; Translations: [Personal history ofother malignant neoplasm of large intestine] Onset: 96-83-1745NxbesgnlXbisdyxr of mouth; excluding dental (6 sources)Disturbances of salivary secretion; Translations: [Xerostomia]Onset: 345738-93-1620UmtpeafyBsnd disorders (3 sources)Mood disordersOnset: 293644-82-5460Jsftg aftercare (2 sources)Encounter for follow-up examination after completed treatment for malignant neoplasm; Translations:[Encounter for follow-up examination after completed treatment for malignant neoplasm]Onset: 45-99-6230WpoczrbfPiqen connective tissue disease (1 source)Pain in left arm; Translations: [Pain in left arm]Onset: 10-11-2024 EpisodicOther connective tissue disease (1 source)Pain in right arm; Translations: [Pain in right arm]Onset: 10-11-2024 EpisodicOther diseases of kidney and ureters (3 sources)Kidney disease; Translations: [Disorder of kidney and ureter, unspecified]Onset: 580388-68-2305AnlhabqiFmorw upper respiratory disease (1 source)Other specified disorders of nose and nasal sinuses; Translations: [Other specified disorders of nose and nasal sinuses]Onset: 82-88-2468Tsprwlqa Other upper respiratory disease (4 sources)Nasal mucosa dry; Translations: [Other specified disorders of nose and nasal sinuses]Onset: 543733-29-6562SyokqztpSxewfjvocz disorders (not diabetes) (15 sources)Idiopathic acute pancreatitis without necrosis or infection; Translations: [Acute pancreatitis without necrosis or infection, unspecified] Onset: 99-47-6643WgzqdwzmYkakurlwdrjp (1 source)Encounter for preprocedural cardiovascular examination; Translations: [Encounter for preprocedural cardiovascular examination]Onset: 08-29-2017 Unclassified (11 sources)Never smoked tobacco; Translations: [Never a smoker] Results Test NameValueInterpretationReference RangeFacilityMR WRIST RIGHT WO IV CONTRAST on 32-93-3241YV WRIST RIGHT WO IV CONTRASTEXAM/TECHNIQUE: MR WRIST RIGHT WO IV CONTRAST HISTORY: [...] Degenerative changes as discussed. ELECTRONICALLY SIGNED BY: Sharita Lopez AvailableComment on above: Order Comment[facility] Please contact patient to scheduleOrders Onlyon 13-65-2491Qutpjq [id number] Jose Alberto Saleem 1965 F Date Provider Department Center 05/19/2025 [id number]-GIMJJNANALISA [facility] Family History Problem Relation Age of Onset Hyperlipidemia Mother Hyperlipidemia Father Hyperlipidemia Brother Heart attack Brother Family Status - Relation Status Age at Mother Father Brother BrotherNormalUniversity of Baylor University Medical CenterTelephoneon 05-19-2025 [id number] Jose Alberto Saleem 1965 F Date Provider Department Center 05/19/2025 GISELA OMER [facility] DOV Family History Problem Relation Age of Onset Hyperlipidemia Mother Hyperlipidemia Father Hyperlipidemia Brother Heart attack Brother Family Status - Relation Status Age at Mother Father Brother BrotherNormalUniversity of Baylor University Medical CenterXR Wrist - right 2 Views on 41-27-7596Juias result: AP and Lateral Right Wrist: Bone Structure: No acute fracture or dislocation Joint Spaces: The carpal joint spaces are well preserved, minimal joint space narrowing mostly radial with subchondral sclerosis. Scapho-lunate interval within normal limit. Soft tissue: No swelling or calcification Impression: No acute bony process Right Wrist with minimal degenerative changes.FirstHealthRadiology Study observation (narrative) [facility]36on 90-34-281067Qprowg spoke with Betsy the pharmacy account director and clarify some information and that is what was needed so hopefully soon be able to get soon.[facility] HospitalTephone [id number] Jose Alberto Saleem 1965 F Date Provider Department Center 05/14/2025 20583-BS-HYSNBQANALISA WATSON [facility] Pav Family History Problem Relation Age of Onset Hyperlipidemia Mother Hyperlipidemia Father Hyperlipidemia Brother Heart attack Brother Family Status - Relation Status Age at Mother Father Brother BrotherNormalUniversmercy health urbana hospital of [facility] University Medical [id number] AngelikaJose Alberto 1965 F Date Provider Department Center 05/14/2025 GISELA OMER [facility] BRIDGETTMarleny Family History Problem Relation Age of Onset Hyperlipidemia Mother Hyperlipidemia Father Hyperlipidemia Brother Heart attack Brother Family Status - Relation Status Age at Mother Father Brother BrotherNormalUnieastland memorial hospital of [facility]29on Addended by: ANALISA WATSON on: 05/14/2025 03:06 PM Modules accepted: OrdersNormalUniversAdena Health System29Addended by: ANALISA WATSON on: 05/12/2025 05:18 PM Modules accepted: OrdersNormalUniversSt. Vincent Hospital CenterFollow-Upon [id number] Jose Alberto Saleem 1965 F Date Provider Department [place] 05/08/2025 CHAUNCEY CESPEDES [facility] Family History Problem Relation Age of Onset Hyperlipidemia Mother Hyperlipidemia Father Hyperlipidemia Brother Heart attack Brother Family Status - Relation Status Age at Mother Father Brother Brother Level of Service:40214 [place] OFFICE/OUTPATIENT ESTABLISHED MOD MDM 30 MIN () Reason for Visit and Comments: Follow-up [052597][address] [id number] called the patient and discussed the MRI/ [...] and Dr. Kimble is aware of the plan.[facility] HospitalTelephone [id number] Jose Alberto Saleem 1965 F Date Provider Department [place] 03/25/2025 SANDRA BURRIS [facility] Family History Problem Relation Age of Onset Hyperlipidemia Mother Hyperlipidemia Father Hyperlipidemia Brother Heart attack Brother Family Status - Relation Status Age at Mother Father Brother BrotherNo[address] 03/25/25@1020 Left patient a message that she [...] or should she follow up in the clinic.[facility] [id number] Jose Alberto Saleem 1965 Provider Department Center 03/20/2025 GISELA OMER [facility] GEORGEI Family History Problem Relation Age of Onset Hyperlipidemia Mother Hyperlipidemia Father Hyperlipidemia Brother Heart attack Brother Family Status - Relation Status Age at Mother Father Brother BrotherNo[address] [phone] and discussed with jay pt the HIDA and MRCP in details. ----- Message from Gisela sent at 02/11/2025 3:15 PM EDT ----- Patient calling for results and follow up plan. Office visit with you and Dr. Kimble 01/09/25No[facility]Mer[facility]36----- Message from Gisela sent at 02/11/2025 3:15 PM EDT ----- Patient calling for results and follow up plan. Office visit with you and Dr. Kimble [facility]-18-2025 [id number] Jose Alberto Saleem 1965 Provider Department [place] 02/18/2025 SANDRA BURRIS [facility] Family History Problem Relation Age of Onset Hyperlipidemia Mother Hyperlipidemia Father Hyperlipidemia Brother Heart attack Brother Family Status - Relation Status Age at Mother Father Brother BrotherNorm[address] [phone] called me to get results of HIDA scan and then what to do as follow up. I do see the HIDA scan results from 01/30/25 @ [facility] and they are normal will forward to Dr. Sharma on of [place] [facility] [place] to see what further he would like to do.[facility] 65-07-6448Kduhmslfu [id number] Jose Alberto Saleem 1965 Provider Department [place] 02/11/2025 GISELA OMER [facility] DOV Family History Problem Relation Age of Onset Hyperlipidemia Mother Hyperlipidemia Father Hyperlipidemia Brother Heart attack Brother Family Status - Relation Status Age at Mother Father Brother BrotherNormalUniversity of Baylor University Medical CenterNM HIDA W EJECTION FRACTIONon 87-15-9040TJ HIDA W EJECTION FRACTIONCLINICAL INFORMATION: Sphincter of [place] dysfunction. Idiopathic acute [...] minutes. Electronically signed: Viet Prado M.D.. Not VldtdInvalid Interpretation CodeUnSouthview Medical Center Elastase.pancreatic (Stl) [Mass/Mass]on 34-50-0389Yyxwhzhtxp Elastase, F174 mcg/gLow>200 (Normal)Paulding County HospitalComment on above:Result Comment: NOTE Interpretation: Borderline (100-200 mcg/g); Consistent with slight to moderate pancreatic insufficiency Test Performed by: [facility] [address] [place], [place] [id number] Audit Spec: Andra Flores Ph.D.; CLIA# [id number] By: #### [id number] #### [facility] ([id number]) [address] [place] [address], FIRST F[place], [place] [address] [id number] by: CHAUNCEY KIMBLE on: 01/10/2025 08:32 AM Modules accepted: Level of ServiceNormalUniversAdena Health System Follow-Upon 56-86-2815Cjiqvo-[id number] Jose Alberto Saleem 1965 F Date Provider Department Center 01/09/2025 375-CHAUNCEY KIMBLE [facility] Family History Problem Relation Age of Onset Hyperlipidemia Mother Hyperlipidemia Father Hyperlipidemia Brother Heart attack Brother Family Status - Relation Status Age at Mother Father Brother Brother Level of Service:72822 [place] OFFICE/OUTPATIENT ESTABLISHED MOD MDM 30 MIN () Reason for Visit and Comments: Follow-up [494569] - MRI follow up and seen at [facility] and in hospital for 1 day. Will get records. Enzo helped tremendously this time and she came home with it, She just complains of fatigue. PCP Ordered sleep studyNormalUniPhilip [place]ille [address]on /01/23@1548 Returned a phone call to patient. She had wanted to follow up with Dr. Chauncey Kimble to let him know she is currently in the ER at [facility] dx with pancreatitis. She had an MRCP on 12/31/24 and if any other lab work needs done to call the Hospital.NormalUnSouthview Medical CenterTelephoneon [id number] Jose Alberto Saleem 1965 F Date Provider Department Center 01/02/2025 GISELA OMER [facility] Family History Problem Relation Age of Onset Hyperlipidemia Mother Hyperlipidemia Father Hyperlipidemia Brother Heart attack Brother Family Status - Relation Status Age at Mother Father Brother BrotherNormalUniMercy Health West HospitalMR ABDOMEN W AND WO CONTRAST MRCPon 18-34-7015FR ABDOMEN W AND WO CONTRAST MRCPMRI ABDOMEN WITHOUT AND WITH CONTRAST AND MRCP [...] cysts. Electronically signed: Figueroa Landeros MD. Not VldtdInvalid Interpretation CodeUnSouthview Medical CenterFollow-Up on [id number]-[id number] Jose Alberto Saleem 1965 F Date Provider Department Center 12/12/2024 Neal-CHAUNCEY KIMBLE [facility] Family History Problem Relation Age of Onset Hyperlipidemia Mother Hyperlipidemia Father Hyperlipidemia Brother Heart attack Brother Family Status - Relation Status Age at Mother Father Brother Brother Level of Service:26568 [place] OFFICE/OUTPATIENT NEW MODERATE MDM 45 MINUTES (GC) Reason for Visit and Comments: Pancreatitis [548423] - Pain when she stresses or when she eats. She has trouble with losing weight as she always feels bloated and gassy.Normal [facility] HospitalXR Wrist - right 2 Viewson 72-15-6552Mvdjgqe Result: AP and Lateral Right Wrist: Bone Structure: No acute fracture or dislocation Joint Spaces: The carpal joint spaces are well preserved, mild joint space narrowing and remodeling with subchondral sclerosis distal radius favoring arthritis. , Scapho-lunate interval within normal limit. Soft tissue: No swelling or calcification Impression: No acute bony process Right WristFirstHealth Radiology Study observation (narrative)[facility] HealthcareXR FOREARM RT 2 VWSon 28-16-0327FU FOREARM RT 2 VWSXR FOREARM RT 2 VWS CLINICAL INFORMATION: Right arm pain TECHNIQUE: XR FOREARM RT 2 VWS 2 views right forearm are obtained. There is no acute osseous, articular, or soft tissue abnormality. IMPRESSION: Negative exam. Finalized by Afshin Barrett MD on 10/11/2024 1:59 PMNormalProMedica Mercy Hospital BakersfieldECG 12 lead ECGon 66-45-3993NAR 12 lead ECGTHE [facility] Main [place] [address] [place] [address] Electrocardiograph Report Signed Patient: Jose Alberto Saleem MR#: [id number] 571 : 1965 Acct:[id number] Age/Sex: 59 / F ADM Date: 08/20/24 Loc: Room: [address] [place] [address] Type: DIS IN Attending Dr: Kaiser Quijano MD Ordering Provider: Sandi Garibay DO Date of Service: 08/22/24 ECG/ECG [...] abnormality Abnormal ECG Confirmed by Bella Stein ([id number]) on 08/22/2024 11:33:07 PM Referred By: Bella Stein Electronically Signed By: Bella Stein Transcribed By: MUS Signed By Bella Stein MD 4 2333[facility] Physician [facility] Medical CenterTroponin I High Sensitivityon 62-00-4154Lgrjsrqz I High Ezpnkelztxj2611.6 pg/mLOff scale high0.0-15.0The [facility] Physician [facility] Medical CenterComment on above:Result Comment: Critical Result : Called to and read back by: ROB MCDONALD at: 08/22/2024 06:38:37 by:RAMONA PERFORMED BY: [facility] [address] [facility] [place] [address] PATHOLOGIST ROUND KILN DRAWER JANA OLMEDO M.D.Performed By: #### HS TROP ####[address] [address] USABlood Urea Nitrogenon 03-10-5965Vkyf nitrogen [Mass/Vol]14 mg/dLNormal7-25The [facility] Physician GroupComment on above:Performed By: #### CREAT, BUN, PP, CBC, LYTES ####[address] [address] [facility] Coagulation Profileon 41-50-1076mFTK Coag (Bld) [Time]35.9 wFsfotr75.1-36.5The [facility] Physician [facility] Medical CenterComment on above:Result Comment: A hematocrit value greater than 55% may lead to inaccurate results in coagulation testing. Patients having hematocrit values >55% require a special collection tube for coagulation studies. Please contact the laboratory at [phone] for redraw instructions. PERFORMED BY: [facility] [address] [place] [id number] PATHOLOGIST ROUND KILN DRAWER JANA OLMEDO M.D.Performed By: #### CREAT, BUN, PP, CBC, LYTES ####[place] [address] [place] [id number] USAINR Coag (PPP) [Relative time]1.1 {INR}NormalThe [facility] Physician GroupComment on above:Result Comment: INR Therapeutic Range A) Pre- and [...] patients with mechanical heart valves: 3 - 4.5Performed By: #### CREAT, BUN, PP, CBC, LYTES ####[place] [address] [place] [address] USAPT Coag (PPP) [Time]12.2 sNormal9.0-12.9The [facility] Physician GroupComment on above:Result Comment: A hematocrit value greater than 55% may lead to inaccurate results in coagulation testing. Patients having hematocrit values >55% require a special collection tube for coagulation studies. Please contact the laboratory at [phone] for redraw instructions.Performed By: #### CREAT, BUN, PP, CBC, LYTES ####[place] [address] [place] [address] USAComplete Blood Count Auto Diffon 59-91-0566Nmjmejvmn (Bld) [#/Vol]0.0 10*3/uLNormal0.0-0.2The [facility] Physician GroupComment on above:Result Comment: PERFORMED BY: [facility] [address] [place] [address] PATHOLOGIST ROUND KILN DRAWER JANA OLMEDO M.D.Performed By: #### CREAT, BUN, PP, CBC, LYTES ####[address] Basophils/100 WBC (Bld)0.3 %Normal.The [facility] Physician GroupComment on above:Performed By: #### CREAT, BUN, PP, CBC, LYTES ####[address] StreetEosinophils (Bld) [#/Vol]0.2 10*3/uLNormal0.0-0.45The [facility] Physician GroupComment on above:Performed By: #### CREAT, BUN, PP, CBC, LYTES ####[address]Eosinophils/100 WBC (Bld)3.9 %Normal.The [facility] Physician GroupComment on above:Performed By: #### CREAT, BUN, PP, CBC, LYTES ####[address] Erythrocyte distribution width (RBC) [Ratio]12.7 %Mokbey82.9-15.3The [facility] Physician GroupComment on above:Performed By: #### CREAT, BUN, PP, CBC, LYTES ####[address] Hematocrit (Bld) [Volume fraction]42.5 %Phjofj81.0-46.4The [facility] Physician GroupComment on above:Performed By: #### CREAT, BUN, PP, CBC, LYTES ####[address] Hemoglobin (Bld) [Mass/Vol]14.6 g/aDQsbcxv48.8-15.4The [facility] Physician Group Comment on above:Performed By: #### CREAT, BUN, PP, CBC, LYTES ####[place] [address] USALymphocytes (Bld) [#/Vol]1.7 10*3/uLNormal1.00-4.8The [facility] Physician GroupComment on above: Performed By: #### CREAT, BUN, PP, CBC, LYTES ####[place] [address] USALymphocytes/100 WBC (Bld)35.0 %Normal. The [facility] Physician GroupComment on above:Performed By: #### CREAT, BUN, PP, CBC, LYTES ####[address] (RBC) [Entitic mass]30.8 wnCykjnz09.7-34.3The [facility] Physician GroupComment on above:Performed By: #### CREAT, BUN, PP, CBC, LYTES ####[address] (RBC) [Entitic vol]89.8 uONendqa74-524Stx [facility] Physician GroupComment on above:Performed By: #### CREAT, BUN, PP, CBC, LYTES ####[place] [address] USAMean Corpuscular HGB Conc34.3 g/qDHivrsu87.0-35.0The [facility] Physician GroupComment on above:Performed By: #### CREAT, BUN, PP, CBC, LYTES ####[place] [address] USAMonocytes (Bld) [#/Vol]0.5 10*3/uLNormal0.0-0.8The [facility] Physician GroupComment on above:Performed By: #### CREAT, BUN, PP, CBC, LYTES ####[place] [address] USAMonocytes/100 WBC (Bld)10.9 %Normal.The [facility] Physician GroupComment on above:Performed By: #### CREAT, BUN, PP, CBC, LYTES ####[place] [address] USANeutrophils (Bld) [#/Vol]2.5 10*3/uLNormal1.8-7.7The [facility] Physician GroupComment on above:Performed By: #### CREAT, BUN, PP, CBC, LYTES ####[place] [address] USANeutrophils/100 WBC (Bld)49.9 %Normal.The [facility] Physician GroupComment on above:Performed By: #### CREAT, BUN, PP, CBC, LYTES ####[place] [address] USANRBC% 0.1 /100{WBC}Normal0-0.5The [facility] Physician GroupComment on above:Performed By: #### CREAT, BUN, PP, CBC, LYTES ####[place] [address] USAPlatelet mean volume (Bld) [Entitic vol]7.7 fL Normal6.3-10.7The [facility] Physician GroupComment on above:Performed By: #### CREAT, BUN, PP, CBC, LYTES ####[place] [address] USAPlatelets (Bld) [#/Vol]172 10*3/xGJodiao399-793Meg [facility] Physician GroupComment on above:Performed By: #### CREAT, BUN, PP, CBC, LYTES ####[place] [address] USARBC (Bld) [#/Vol]4.73 10*6/uLNormal3.60-5.00The [facility] Physician Group Comment on above:Performed By: #### CREAT, BUN, PP, CBC, LYTES ####[place] [address] USAWBC (Bld) [#/Vol]4.9 10*3/uLNormal3.8-11.6The [facility] Physician GroupComment on above:Performed By: #### CREAT, BUN, PP, CBC, LYTES ####[place] [address] USACreatinineon 60-49-9200Eqhlmuntan [Mass/Vol]0.61 mg/dLNormal0.60-1.20The [facility] Physician GroupComment on above:Performed By: #### CREAT, BUN, PP, CBC, LYTES ####[place] [address] [place] [address] USACreatinine Clr Calc Ndkgxfms05.73NormalThe [facility] Physician GroupComment on above:Result Comment: PERFORMED BY: [place] [address] PATHOLOGIST ROUND KILN DRAWER JANA OLMEDO M.D.Performed By: #### CREAT, BUN, PP, CBC, LYTES ####[place] [address] [place] [id number] [place] GFR/1.73 sq M.predicted MDRD (S/P/Bld) [Vol rate/Area]mL/min/{1.73_m2}NormalThe [facility] Physician [facility] Medical CenterComment on above:Performed By: #### CREAT, BUN, PP, CBC, LYTES ####[place] [id number] USAECG 12 lead ECGon 17-06-2370OSB 12 lead ECGTHE [facility] Main [place] [address] [place] [address] Electrocardiograph Report Signed Patient: Jose Alberto Saleem MR#: [id number] 571 : 1965 Acct:[id number] Age/Sex: 59 / F ADM Date: 08/20/24 Loc: Room: [address] [place] [address] Type: DIS IN Attending Dr: Kaiser Quijano MD Ordering Provider: Sandi Garibay DO Date of Service: 08/21/24 ECG/ECG [...] abnormality Abnormal ECG Confirmed by Bella Stein ([id number]) on 08/22/2024 11:33:52 PM Referred By: Bella Stein Electronically Signed By: Bella Stein Transcribed By: MUS Signed By Bella Stein MD 4 2333[facility] Physician GroupElectrolyteson 09-20-2109Bpdjq gap [Moles/Vol]11.0 mmol/LNormal6.0-15.0The [facility] Physician [facility] Medical CenterComment on above:Performed By: #### CREAT, BUN, PP, CBC, LYTES ####[place] [address] [place] [address] USAChloride [Moles/Vol]105 mmol/L Qgfjmh65-629Suf [facility] Physician [facility] Medical CenterComment on above:Performed By: #### CREAT, BUN, PP, CBC, LYTES ####[address] [address] USACO2 [Moles/Vol]27.9 mmol/TQnahhm26.0-31.0The [facility] Physician [facility] Medical CenterComment on above:Performed By: #### CREAT, BUN, PP, CBC, LYTES ####[address] [address] USAPotassium [Moles/Vol]3.9 mmol/LNormal3.5-5.1The [facility] Physician [facility] Comment on above:Performed By: #### CREAT, BUN, PP, CBC, LYTES ####[address] [address] USASodium [Moles/Vol]140 mmol/JCbshji557-541Nri [facility] Physician [facility] Medical CenterComment on above:Performed By: #### CREAT, BUN, PP, CBC, LYTES ####[address] [address] USANM lia perf SPECT rest stron 66-96-7331GN lia perf SPECT rest [facility] Main [address] [address] Nuclear Medicine Report Signed Patient: Jose Alberto Saleem MR#: [id number] 571 : 1965 Acct:[id number] Age/Sex: 59 / F ADM Date: 08/18/24 Loc: Room: [address] [place] [address] Type: ADM INOo Attending Dr: Chucky Dunn MD Copies to: MD Chucky Cuenca MD W Scott Sheldon, DO Ordering Provider: Sandi Garibay DO Date of Service: 08/20/24 NM/NM [...] Bella Stein M.D.08/20/2024 3:56 PM Dictation Location: [place] [address] Transcribed By: [facility] 08/20/24 1556 Dictated By: Bella Stein MD 08/20/24 1552 Signed By: 08/20/24 1556NoC[facility] Physician FqymxH3G with Estimated Average Gluon 14-00-8234Kfcxjzj [Mass/Vol]117 mg/dLNoCape Fear Valley Bladen County Hospital Physician GroupComment on above:Result Comment: PERFORMED BY: [facility] [address] [place] [address] PATHOLOGIST ROUND KILN DRAWER JANA OLMEDO M.D.Performed By: #### A1C WT eA, HS TROP ####[facility] [address] [place] [address] LFNWxL6s (Bld) [Mass fraction]5.7 %High4.3-5.6The [facility] Physician [facility] Medical CenterComment on above:Result Comment: Increased risk for diabetes: 5.7 - 6.4 diabetes: >6.4 glycemic control for adults with diabetes: <7.0Performed By: #### A1C [facility], TROP ####[facility] [address] [place] [address] USAECG 12 lead ECGon 84-27-0808UBN 12 lead ECGTHE [place] [address] Electrocardiograph Report Signed Patient: Jose Alberto Saleem MR#: [id number] 571 : 1965 Acct:[id number] Age/Sex: 59 / F ADM Date: 08/18/24 Loc: 3T Room: [address] [place] [address] Type: ADM INOo Attending Dr: Chucky Dunn [...] abnormality Abnormal ECG Confirmed by Bella Stein ([id number]) on 08/21/2024 12:00:39 AM Referred By: Bella Stein Electronically Signed By: Bella Stein Transcribed By: MUS Signed By Bella Stein MD 4 0000[facility] Physician GroupECG 12 lead ECGTHE [facility] Main [place] [address] [place], [place] [address] Electrocardiograph Report Signed Patient: Jose Alberto Saleem MR#: [id number] 571 : 1965 Acct:[id number] Age/Sex: 59 / F ADM Date: 08/18/24 Loc: Room: [address] [place] [address] Type: ADM INOo Attending Dr: Chucky Dunn [...] rhythm Leftward axis Confirmed by Bridgett Monreal ([id number]) on 08/20/2024 11:52:24 PM Referred By: Bella Stein Electronically Signed By: Bridgett Monreal Transcribed By: MUS Signed By Bridgett Monreal MD 08/20/24 2352NormNav[facility] Hospital [facility] Physician GroupTroponin I High Sensitivityon 42-05-0523Rdlemecr I High Sensitivity4.6 pg/mLNormal0.0-15.0The [facility] Physician GroupComment on above:Result Comment: PERFORMED BY: [place] [address] PATHOLOGIST ROUND KILN DRAWER JANA OLMEDO M.D.Performed By: #### A1C [facility] eA, HS TROP ####[facility] [address] [place] [address] USAX-ray reportOrdered By: Thelma Wick on 54-47-8011Alssc reportTHE [place] [address] XRay Report Signed Patient: Jose Alberto Saleem MR#: [id number] : 1965 Acct:[id number] Age/Sex: 59 / F ADM Date: 4 Loc: Room: [address] [place] [address] Type: ADM INOo Attending Dr: Donis Arroyo [...] thorax is intact. Dextroscoliotic curvature and endplate spurringare visualized. XR/XR chest 2V* IMPRESSION: NO ACUTE CARDIOPULMONARY ABNORMALITY. Impression dictated by: Thelma Wick M.D.08/19/2024 12:10 AM Dictation Location: [place] [address] Transcribed By: [facility] 08/19/249 Dictated By: Thelma Wick MD 08/18/242210 Signed By: 08/19/249 [facility] Work Phone: Alanine aminotransferase [Enzymatic activity/volume] in Serum or PlasmaOrdered By: Lynnette Chapman on 27-07-8033MGK [Catalytic activity/Vol]Alanine aminotransferase [Enzymatic activity/volume] in Serum or Plasma7-52[facility] CenterAlbumin [Mass/volume] in Serum or Plasma by Bromocresol green (BCG) dye binding methoOrdered By: Lynnette Chapman on 80-43-0321Jfjqoey BCG dye [Mass/Vol]Albumin [Mass/volume] in Serum or Plasma by Bromocresol green (BCG) dye binding metho3.5-5.7FProMedica Defiance Regional HospitalAlkaline phosphatase [Enzymatic activity/volume] in Serum or PlasmaOrdered By: Lynnette Chapman on 63-96-5040YRE [Catalytic activity/Vol]Alkaline phosphatase [Enzymatic activity/volume] in Serum or Vqoahd92-892DdogkfltyTrinity Health System Twin City Medical CenterAspartate aminotransferase [Enzymatic activity/volume] in Serum or Plasma Ordered By: Lynnette Chapman on 52-22-0625AFU [Catalytic activity/Vol]Aspartate aminotransferase [Enzymatic activity/volume] in Serum or Ccuzxz77-20UthgztazhTrinity Health System Twin City Medical CenterB-Type Natriuretic Peptideon 60-07-2951Drlurcbfrzj peptide B (Bld) [Mass/Vol]31.0 pg/mLNormal5-100The [facility] Comment on above:Result Comment: PERFORMED BY: [address] [place] [address] PATHOLOGIST ROUND KILN DRAWER JANA OLMEDO M.D.Performed By: #### HS TROP, LIPASE, PT, BMP, HEPATIC, CK, CBC, BNP ####[place] [address] USABasic Metabolic Panelon 04-86-4317Okscw gap [Moles/Vol]10.7 mmol/L Normal6.0-15.0The [facility] Physician GroupComment on above:Performed By: #### HS TROP, LIPASE, PT, BMP, HEPATIC, CK, CBC, BNP #### [place] [address] USAPerformed By: #### HS TROP, LIPASE, PT, BMP, HEPATIC, CK, CBC, BNP ####[place] [address] USACalcium [Mass/Vol]10.1 mg/dLNormal8.6-10.3The [facility] Comment on above:Performed By: #### HS TROP, LIPASE, PT, BMP, HEPATIC, CK, CBC, BNP #### [place] [address] USAPerformed By: #### HS TROP, LIPASE, PT, BMP, HEPATIC, CK, CBC, BNP ####[place] [address] USAChloride [Moles/Vol]102 mmol/HXmshuw49-720Wfl [facility] Comment on above:Performed By: #### HS TROP, LIPASE, PT, BMP, HEPATIC, CK, CBC, BNP #### [place] [address] USAPerformed By: #### HS TROP, LIPASE, PT, BMP, HEPATIC, CK, CBC, BNP ####[place] [address] USACO2 [Moles/Vol]28.4 mmol/XLubdnm05.0-31.0The [facility] Physician GroupComment on above:Performed By: #### HS TROP, LIPASE, PT, BMP, HEPATIC, CK, CBC, BNP #### [place] [address] USAPerformed By: #### HS TROP, LIPASE, PT, BMP, HEPATIC, CK, CBC, BNP ####[facility] [place] [address] USACreatinine [Mass/Vol]0.62 mg/dLNormal0.60-1.20The [facility] Comment on above:Performed By: #### HS TROP, LIPASE, PT, BMP, HEPATIC, CK, CBC, BNP #### [facility] [address] [place] [address] USAPerformed By: #### HS TROP, LIPASE, PT, BMP, HEPATIC, CK, CBC, BNP ####[address] [place] [address] USACreatinine Clr Calc Pbnjwrai54.72NormalThNell J. Redfield Memorial Hospital Physician GroupComment on above:Result Comment: PERFORMED BY: [place] [address] PATHOLOGIST ROUND KILN DRAWER JANA OLMEDO M.D.Performed By: #### HS TROP, LIPASE, PT, BMP, HEPATIC, CK, CBC, BNP #### [place] [address] USAPerformed By: #### HS TROP, LIPASE, PT, BMP, HEPATIC, CK, CBC, BNP ####[address] [place] [address] USAGFR/1.73 sq M.predicted MDRD (S/P/Bld) [Vol rate/Area]mL/min/{1.73_m2}Normal The [facility] Physician GroupComment on above:Performed By: #### HS TROP, LIPASE, PT, BMP, HEPATIC, CK, CBC, BNP #### [place] [address] USAPerformed By: #### HS TROP, LIPASE, PT, BMP, HEPATIC, CK, CBC, BNP ####[address] [place] [address] USAGlucose [Mass/Vol]94 mg/yDHfrewi00-378Dgy [facility] Physician GroupComment on above:Result Comment: Random Glucose Reference Range is dependent on time and content of last meal. Glucose of more than 200 mg/dL in a nonstressed, ambulatory subject supports the diagnosis of Diabetes Mellitus. ADA recommended reference rangePerformed By: #### HS TROP, LIPASE, PT, BMP, HEPATIC, CK, CBC, BNP #### [place] [address] USAPerformed By: #### HS TROP, LIPASE, PT, BMP, HEPATIC, CK, CBC, BNP ####[place] [address] USAPotassium [Moles/Vol]4.1 mmol/LNormal3.5-5.1The [facility] Comment on above:Performed By: #### HS TROP, LIPASE, PT, BMP, HEPATIC, CK, CBC, BNP #### [place] [address] USAPerformed By: #### HS TROP, LIPASE, PT, BMP, HEPATIC, CK, CBC, BNP ####[place] [address] USASodium [Moles/Vol]137 mmol/XGnueuh997-025Rup [facility] Physician GroupComment on above:Performed By: #### HS TROP, LIPASE, PT, BMP, HEPATIC, CK, CBC, BNP #### [place] [address] USAPerformed By: #### HS TROP, LIPASE, PT, BMP, HEPATIC, CK, CBC, BNP ####[place] [address] USAUrea nitrogen [Mass/Vol]22 mg/dLNormal7-25The [facility] Comment on above:Performed By: #### HS TROP, LIPASE, PT, BMP, HEPATIC, CK, CBC, BNP #### [place] [address] USAPerformed By: #### HS TROP, LIPASE, PT, BMP, HEPATIC, CK, CBC, BNP ####[place] [address] USABasophils Auto (Bld) [#/Vol]Ordered By: Lynnette Chapman on 94-76-4416Xiruivmnz (Bld) [#/Vol]Automated basophil count0.0-0.2FProMedica Defiance Regional Hospital Basophils/100 WBC Auto (Bld)Ordered By: Lynnette Chapman on 08-18-2024 Basophils/100 WBC (Bld)Automated basophil %.[facility] Bilirubin.direct [Mass/volume] in Serum or PlasmaOrdered By: Lynnette Chapman on 79-24-0399Qwteqaxyz.direct [Mass/Vol]Bilirubin.direct [Mass/volume] in Serum or Plasma0.03-0.18FProMedica Defiance Regional HospitalBilirubin.total [Mass/volume] in Serum or PlasmaOrdered By: Lynnette Chapman on 62-78-7618Yrofedvkq [Mass/Vol] Bilirubin.total [Mass/volume] in Serum or Plasma0.3-1.0[facility] CenterCalcium [Mass/volume] in Serum or PlasmaOrdered By: Lynnette Chapman on 10-13-3166Xboskla [Mass/Vol]Calcium [Mass/volume] in Serum or Plasma8.6-10.3 [facility] CenterCarbon dioxide, total [Moles/volume] in Serum or PlasmaOrdered By: Lynnette Chapman on 58-81-6635JW0 [Moles/Vol]Carbon dioxide, total [Moles/volume] in Serum or Vkhnyd52.0-31.0[facility] Medical CenterChloride [Moles/volume] in Serum or PlasmaOrdered By: Lynnette Chapman on 84-88-9796Lwrkftrx [Moles/Vol]Chloride [Moles/volume] in Serum or Tvdkgd72-211 [facility] CenterComplete Blood Count Auto Diffon 08-18-2024 Basophils (Bld) [#/Vol]0.0 10*3/uLNormal0.0-0.2The [facility] Comment on above:Result Comment: PERFORMED BY: [place] [address] PATHOLOGIST ROUND KILN DRAWER JANA OLMEDO M.D.Performed By: #### HS TROP, LIPASE, PT, BMP, HEPATIC, CK, CBC, BNP #### [facility] [address] [place] [address] USABasophils/100 WBC (Bld)0.7 %Normal.The [facility] Physician GroupComment on above:Performed By: #### HS TROP, LIPASE, PT, BMP, HEPATIC, CK, CBC, BNP #### [place] [address] USAEosinophils (Bld) [#/Vol]0.2 10*3/uLNormal0.0-0.45The [facility] Physician GroupComment on above:Performed By: #### HS TROP, LIPASE, PT, BMP, HEPATIC, CK, CBC, BNP #### [place] [address] USAEosinophils/100 WBC (Bld)3.5 %Normal.The [facility] Physician GroupComment on above:Performed By: #### HS TROP, LIPASE, PT, BMP, HEPATIC, CK, CBC, BNP #### [place] [address] USAErythrocyte distribution width (RBC) [Ratio]12.6 %Normal 11.9-15.3The [facility] Physician GroupComment on above:Performed By: #### HS TROP, LIPASE, PT, BMP, HEPATIC, CK, CBC, BNP #### [place] [address] USAHematocrit (Bld) [Volume fraction]43.7 %Pdozdh86.0-46.4The [facility] Physician GroupComment on above:Performed By: #### HS TROP, LIPASE, PT, BMP, HEPATIC, CK, CBC, BNP #### [place] [address] USAHemoglobin (Bld) [Mass/Vol]15.1 g/kDEypqgl08.8-15.4The [facility] Physician GroupComment on above:Performed By: #### HS TROP, LIPASE, PT, BMP, HEPATIC, CK, CBC, BNP #### [place] [address] USALymphocytes (Bld) [#/Vol]2.2 10*3/uLNormal1.00-4.8The [facility] Physician GroupComment on above:Performed By: #### HS TROP, LIPASE, PT, BMP, HEPATIC, CK, CBC, BNP #### [place] [address] USALymphocytes/100 WBC (Bld)36.5 %Normal.The [facility] Physician GroupComment on above:Performed By: #### HS TROP, LIPASE, PT, BMP, HEPATIC, CK, CBC, BNP #### [address] (RBC) [Entitic mass]30.7 rhAejtfn58.7-34.3The [facility] Physician GroupComment on above:Performed By: #### HS TROP, LIPASE, PT, BMP, HEPATIC, CK, CBC, BNP #### [address]V (RBC) [Entitic vol]88.8 hRKaldul23-160Lke [facility] Physician GroupComment on above:Performed By: #### HS TROP, LIPASE, PT, BMP, HEPATIC, CK, CBC, BNP #### [place] [address] USAMean Corpuscular HGB Conc34.5 g/sSOwfywc87.0-35.0The [facility] Physician GroupComment on above:Performed By: #### HS TROP, LIPASE, PT, BMP, HEPATIC, CK, CBC, BNP #### [place] [address] USAMonocytes (Bld) [#/Vol]0.6 10*3/uLNormal0.0-0.8The [facility] Physician GroupComment on above:Performed By: #### HS TROP, LIPASE, PT, BMP, HEPATIC, CK, CBC, BNP #### [place] [address] USAMonocytes/100 WBC (Bld)16.97 %Normal0.00-20.00The [facility] Physician GroupComment on above:Performed By: #### HS TROP, LIPASE, PT, BMP, HEPATIC, CK, CBC, BNP #### [address] [address] USAMonocytes/100 WBC (Bld)10.5 %Normal.The [facility] Physician GroupComment on above:Performed By: #### HS TROP, LIPASE, PT, BMP, HEPATIC, CK, CBC, BNP #### [place] [address] USANeutrophils (Bld) [#/Vol]3.0 10*3/uLNormal1.8-7.7The [facility] Physician GroupComment on above:Performed By: #### HS TROP, LIPASE, PT, BMP, HEPATIC, CK, CBC, BNP #### [facility] [address] [place] [address] USANeutrophils/100 WBC (Bld)48.8 %Normal.The [facility] Physician GroupComment on above:Performed By: #### HS TROP, LIPASE, PT, BMP, HEPATIC, CK, CBC, BNP #### [facility] [address] [place] [address] USANRBC%0.1 /100{WBC}Normal0-0.5The [facility] Comment on above:Performed By: #### HS TROP, LIPASE, PT, BMP, HEPATIC, CK, CBC, BNP #### [place] [address] USAPlatelet mean volume (Bld) [Entitic vol]7.9 fLNormal 6.3-10.7The [facility] Physician GroupComment on above:Performed By: #### HS TROP, LIPASE, PT, BMP, HEPATIC, CK, CBC, BNP #### [place] [address] USAPlatelets (Bld) [#/Vol]204 10*3/fUZbanpf843-064Paa [facility] Physician GroupComment on above:Performed By: #### HS TROP, LIPASE, PT, BMP, HEPATIC, CK, CBC, BNP #### [place] [address] USARBC (Bld) [#/Vol]4.92 10*6/uLNormal3.60-5.00The [facility] Physician GroupComment on above:Performed By: #### HS TROP, LIPASE, PT, BMP, HEPATIC, CK, CBC, BNP #### [facility] [address] [place] [address] USAWBC (Bld) [#/Vol]6.1 10*3/uLNormal3.8-11.6The [facility] Physician GroupComment on above:Performed By: #### HS TROP, LIPASE, PT, BMP, HEPATIC, CK, CBC, BNP #### [facility] [address] [place] [id number] USACreatine Kinaseon 65-16-2734CS [Catalytic activity/Vol]53 U/QCabblr16-583[facility] Physician GroupComment on above:Performed By: #### HS TROP, LIPASE, PT, BMP, HEPATIC, CK, CBC, BNP ####[facility] [address] [place] [address] USACreatine kinase [Enzymatic activity/volume] in Serum or PlasmaOrdered By: Lynnette Chapman on 41-38-2407FQ [Catalytic activity/Vol]Creatine kinase [Enzymatic activity/volume] in Serum or Sxorcl08-091NwwjwcampTrinity Health System Twin City Medical CenterCreatinine [Mass/volume] in Serum or PlasmaOrdered By: Lynnette Chapman on 90-81-0398Svhmmjqrkc [Mass/Vol]Creatinine [Mass/volume] in Serum or Plasma0.60-1.20[facility] Medical CenterECG 12 lead ECGon 66-72-3468HFO 12 lead ECGTHE [facility] [place] [address] [place] [address] Electrocardiograph Report Signed Patient: Jose Alberto Saleem MR#: [id number] : 1965 Acct:[id number] Age/Sex: 59 / F ADM Date: 08/18/24 Loc: ER Room: Type: [facility] ER Attending Dr: Ordering Provider: Lynnette Chapman [...] wave abnormality Confirmed by Lynnette Chapman MD ([id number]) on 08/18/2024 11:22:40 PM Referred By: Electronically Signed By: Lynnette Chapman MD Transcribed By: MUS Signed By Lynnette Chapman MD 08/01 05/24 2322[facility] Physician GroupEosinophils Auto (Bld) [#/Vol] Ordered By: Lynnette Chapman on 15-86-7909Bkzpmsyozkw (Bld) [#/Vol]Automated eosinophil count0.0-0.45[facility] CenterEosinophils/100 WBC Auto (Bld)Ordered By: Lynnette Chapman on 97-81-4704Zyecvcobfzw/100 WBC (Bld) Automated eosinophil %.[facility] CenterErythrocyte distribution width Auto (RBC) [Ratio]Ordered By: Lynnette Chapman on 98-97-2801Qtwnefgazbl distribution width (RBC) [Ratio]Erythrocyte distribution width [Ratio] by Automated count11.9-15.3FProMedica Defiance Regional HospitalGlobulin Calc (S) [Mass/Vol]Ordered By: Lynnette Chapman on 68-71-0659Ardtpgun (S) [Mass/Vol]Serum globulin measurement by calculation (mass/volume)[facility] CenterGlucose [Mass/volume] in Serum or PlasmaOrdered By: Lynnette Chapman on 25-76-8573Oxfmlrd [Mass/Vol]Glucose [Mass/volume] in Serum or Vcanpl82-970 [facility] CenterComment on above:ADA recommended reference rangeRandom Glucose Reference Range is dependent on time and content of last meal. Glucose of more than 200 mg/dL in a nonstressed, ambulatory subject supports the diagnosisof Diabetes Mellitus.Hematocrit Auto (Bld) [Volume fraction]Ordered By: Lynnette Chapman on 25-38-4655Jnzcxrkutx (Bld) [Volume fraction]Hematocrit [Volume Fraction] of Blood by Automated count34.0-46.4 [facility] CenterHemoglobin [Mass/volume] in BloodOrdered By: Lynnette Chapman on 01-73-2306Ligqpesokt (Bld) [Mass/Vol]Hemoglobin [Mass/volume] in Blood11.8-15.4FProMedica Defiance Regional HospitalHepatic Panelon 08-18-2024 Albumin [Mass/Vol]4.3 g/dLNormal3.5-5.7The [facility] Physician GroupComment on above:Performed By: #### HS TROP, LIPASE, PT, BMP, HEPATIC, CK, CBC, BNP ####[address] Albumin/Globulin [Mass ratio]1.7 {ratio}NormalThe [facility] Comment on above:Performed By: #### HS TROP, LIPASE, PT, BMP, HEPATIC, CK, CBC, BNP ####[place] [address] USAALP [Catalytic activity/Vol]89 U/KFrrnnx65-516Lhs [facility] Physician GroupComment on above:Performed By: #### HS TROP, LIPASE, PT, BMP, HEPATIC, CK, CBC, BNP ####[place] [address] USAALT [Catalytic activity/Vol]42 U/LNormal7-52The [facility] Physician GroupComment on above:Performed By: #### HS TROP, LIPASE, PT, BMP, HEPATIC, CK, CBC, BNP ####[place] [address] USAAST [Catalytic activity/Vol]31 U/CEgugqw05-50Gug [facility] Physician GroupComment on above:Performed By: #### HS TROP, LIPASE, PT, BMP, HEPATIC, CK, CBC, BNP ####[place] [id number] [facility] Bilirubin [Mass/Vol]0.4 mg/dLNormal0.3-1.0The [facility] Physician GroupComment on above:Performed By: #### HS TROP, LIPASE, PT, BMP, HEPATIC, CK, CBC, BNP ####[address] Bilirubin,Indirect0.3 mg/dLNormalThe [facility] Physician GroupComment on above: Performed By: #### HS TROP, LIPASE, PT, BMP, HEPATIC, CK, CBC, BNP ####[facility] [place] [address] USABilirubin.indirect [Mass/Vol]0.10 mg/dLNormal0.03-0.18The [facility] Physician GroupComment on above:Performed By: #### HS TROP, LIPASE, PT, BMP, HEPATIC, CK, CBC, BNP ####[address] [place] [address] [place] Globulin (S) [Mass/Vol]2.6 g/dLNormalThe [facility] Physician GroupComment on above:Performed By: #### HS TROP, LIPASE, PT, BMP, HEPATIC, CK, CBC, BNP ####[address] [place] [id number] USAProtein [Mass/Vol]6.9 g/dLNormal6.4-8.9The [facility] Physician GroupComment on above: Performed By: #### HS TROP, LIPASE, PT, BMP, HEPATIC, CK, CBC, BNP ####[place] [address] USAINR in Platelet poor plasma by Coagulation assayOrdered By: Lynnette Chapman on 29-61-0255HVJ Coag (PPP) [Relative time]INR in Platelet poor plasma by Coagulation assayTrinity Health System Twin City Medical CenterComment on above:INR Therapeutic Range A) Pre- and Peroperative OAT started two weeks before surgery. NOT HIP SURGERY: 1.5 - 2.5 HIP SURGERY: 2 - 3B) Primary and secondary prevention of venous THROMBOSIS: 2 - 3C) Active venous thrombosis, pulmonary embolismand prevention of recurrent venous thrombosis: 2 - 3D) Prevention of arterial thromboembolismincluding patients with mechanical heart valves: 3 - 4.5Leukocytes [#/volume] corrected for nucleated erythrocytes in Blood by Automated counOrdered By: Lynnette Chapman on 65-63-7679TSN corrected for nucl RBC Auto (Bld) [#/Vol]Leukocytes [#/volume] corrected for nucleated erythrocytes in Blood by Automated coun3.8-11.6FProMedica Defiance Regional HospitalLipaseon 45-05-4899Fmapex [Catalytic activity/Vol]110.0 U/LHigh11.0-82.0The [facility] Physician GroupComment on above:Result Comment: PERFORMED BY: [facility] [address] [place] [address] PATHOLOGIST ROUND KILN DRAWER JANA OLMEDO M.D.Performed By: #### HS TROP, LIPASE, PT, BMP, HEPATIC, CK, CBC, BNP ####[facility] [address] [place] [address] USALipase [Enzymatic activity/volume] in Serum or PlasmaOrdered By: Lynnette Chapman on 81-33-6444Vzbqps [Catalytic activity/Vol]Lipase [Enzymatic activity/volume] in Serum or OifeosRyiz44.0-82.0[facility] Medical CenterLymphocytes Auto (Bld) [#/Vol]Ordered By: Lynnette Chapman on 08-18-2024 Lymphocytes (Bld) [#/Vol]Lymphocytes [#/volume] in Blood by Automated count 1.00-4.8[facility] CenterLymphocytes/100 WBC Auto (Bld)Ordered By: Lynnette Chapman on 50-22-0579Jobdapgtiqe/100 WBC (Bld)Lymphocytes/100 leukocytes in Blood by Automated count.[facility] HospitalH Auto (RBC) [Entitic mass]Ordered By: Lynnette Chapman on 34-98-1291LEP (RBC) [Entitic mass]MCH [Entitic mass] by Automated count24.7-34.3FProtestant Deaconess HospitalHC Auto (RBC) [Mass/Vol]Ordered By: Lynnette Chapman on 40-90-6816RFBA (RBC) [Mass/Vol]MCHC [Mass/volume] by Automated count32.0-35.0[facility] CenterMCV Auto (RBC) [Entitic vol]Ordered By: Lynnette Chapman on 81-22-0030ZJC (RBC) [Entitic vol]MCV [Entitic volume] by Automated -830 [facility] CenterMonocyte distribution width [Entitic volume] in Blood by AutomatedOrdered By: Lynnette Chapman on 82-61-6872Qmtaerwg distribution width Auto (Bld) [Entitic vol]Monocyte distribution width [Entitic volume] in Blood by Automated0.00-20.00[facility] CenterMonocytes Auto (Bld) [#/Vol]Ordered By: Lynnette Chapman on 58-17-2752Acqkwhzjx (Bld) [#/Vol] Automated blood monocyte count0.0-0.8[facility] Monocytes/100 WBC Auto (Bld)Ordered By: Lynnette Chapman on 08-18-2024 Monocytes/100 WBC (Bld)Automated monocyte %.[facility] Natriuretic peptide B [Mass/Vol]Ordered By: Lynnette Chapman on 08-18-2024 Natriuretic peptide B (Bld) [Mass/Vol]BNP ser/plas5-100[facility] CenterNeutrophils Auto (Bld) [#/Vol]Ordered By: Lynnette Chapman on 99-50-0455Gdirfzecmwi (Bld) [#/Vol]Neutrophils [#/volume] in Blood by Automated count1.8-7.7FProMedica Defiance Regional HospitalNeutrophils/100 WBC Auto (Bld) Ordered By: Lynnette Chapman on 71-80-0812Cvcmyfufqwf/100 WBC (Bld)Automated neutrophil %.[facility] CenterNo Panel InformationOrdered By: Lynnette Chapman on 57-12-9452Msujtxqlp GFR (CKD-EPI)> 60.0 mL/MinTrinity Health System Twin City Medical CenterPharmacy Creatinine Clearance (Chem95.72[facility] CenterNucleated erythrocytes [Presence] in Blood by Automated countOrdered By: Lynnette Chapman on 69-79-4047Blvvbbmfu RBC Auto Ql (Bld) Nucleated erythrocytes [Presence] in Blood by Automated count0-0.5FProMedica Defiance Regional HospitalPlatelet mean volume Auto (Bld) [Entitic vol]Ordered By: Lynnette Chapman on 14-30-6209Lhqcaouq mean volume (Bld) [Entitic vol]Platelet mean volume [Entitic volume] in Blood by Automated count6.3-10.7FProMedica Defiance Regional HospitalPlatelets Auto (Bld) [#/Vol]Ordered By: Lynnette Chapman on 05-37-3083Qawsdhmda (Bld) [#/Vol]Platelets [#/volume] in Blood by Automated -430RumneoqcaTrinity Health System Twin City Medical CenterPotassium [Moles/volume] in Serum or PlasmaOrdered By: Lynnette Chapman on 71-67-0902Qjrqlcaej [Moles/Vol]Potassium [Moles/volume] in Serum or Plasma3.5-5.1FProMedica Defiance Regional HospitalProtein [Mass/volume] in Serum or PlasmaOrdered By: Lynnette Chapman on 62-53-4316Qdscznz [Mass/Vol]Protein [Mass/volume] in Serum or Plasma6.4-8.9[facility] CenterProthrombin Time INRon 02-19-4723WGC Coag (PPP) [Relative time]1.0 {INR}NormalThe [facility] Physician GroupComment on above:Result Comment: INR Therapeutic Range A) Pre- and [...] heart valves: 3 - 4.5 PERFORMED BY: [facility] [address] [place] [id number] PATHOLOGIST ROUND KILN DRAWER JANA OLMEDO M.D.Performed By: #### HS TROP, LIPASE, PT, BMP, HEPATIC, CK, CBC, BNP #### [facility] [address] [place] [address] USAPT Coag (PPP) [Time]11.7 sNormal9.0-12.9The [facility] Physician [facility] Va Medical CenterComment on above:Result Comment: A hematocrit value greater than 55% may lead to inaccurate results in coagulation testing. Patients having hematocrit values >55% require a special collection tube for coagulation studies. Please contact the laboratory at [phone] for redraw instructions.Performed By: #### HS TROP, LIPASE, PT, BMP, HEPATIC, CK, CBC, BNP #### [facility] [address] [place] [address] USAProthrombin time (PT)Ordered By: Lynnette Chapman on 02-05-9462CE Coag (PPP) [Time]Prothrombin time (PT)9.0-12.9[facility] Medical CenterComment on above:A hematocrit value greater than 55% may lead to inaccurate results in coagulation testing. Patientshaving hematocrit values >55% require a special collection tube for coagulation studies. Please contact the laboratory at [phone] for redraw instructions.RBC Auto (Bld) [#/Vol]Ordered By: Lynnette Chapman on 45-33-0697YGK (Bld) [#/Vol]Erythrocytes [#/volume] in Blood by Automated count3.60-5.00[facility] Hospitalerum or plasma albumin/globulin mass ratioOrdered By: Lynnette Chapman on 08-18-2024 Albumin/Globulin [Mass ratio]Serum or plasma albumin/globulin mass ratio [facility] Hospitalerum or plasma anion gap determinationOrdered By: Lynnette Chapman on 62-16-4639Gubpe gap [Moles/Vol]Serum or plasma anion gap determination6.0-15.0[facility] Hospitalerum or plasma non- glucuronidated bilirubin measurement (mass/volume)Ordered By: Lynnette Chapman on 34-20-8109Ytmauweme.indirect [Mass/Vol]Serum or plasma non-glucuronidated bilirubin measurement (mass/volume)[facility] Hospitalodium [Moles/volume] in Serum or PlasmaOrdered By: Lynnette Chapman on 54-16-9122Bjyfnm [Moles/Vol]Sodium [Moles/volume] in Serum or Xjrbim266-919MxegtdyzqTrinity Health System Twin City Medical CenterTroponin I High Sensitivityon 35-76-9375Rdypdfup I High Sensitivity4.7 pg/mLNormal0.0-15.0The [facility] Physician GroupComment on above: Result Comment: PERFORMED BY: [facility] [address] [facility]ENTERF[facility] [place] [id number] PATHOLOGIST ROUND KILN DRAWER AJNA OLMEDO M.D.Performed By: #### HS TROP ####[facility] [place] [address] USATroponin I High Sensitivity5.1 pg/mLNormal0.0-15.0The [facility] Physician GroupComment on above:Result Comment: PERFORMED BY: [facility] [address] [facility] [place] [address] PATHOLOGIST ROUND KILN DRAWER JANA OLMEDO M.D.Performed By: #### HS TROP, LIPASE, PT, BMP, HEPATIC, CK, CBC, BNP ####[facility] [address] [place] [address] USATroponin I.cardiac [Mass/volume] in Serum or Plasma by Detection limit <= 0.01 ng/Ordered By: Lynnette Chapman on 27-32-0581Mgixfsgn I.cardiac DL <= 0.01 ng/mL [Mass/Vol]Troponin I.cardiac [Mass/volume] in Serum or Plasma by Detection limit <= 0.01 ng/0.0-15.0[facility] CenterUrea nitrogen [Mass/volume] in Serum or PlasmaOrdered By: Lynnette Chapman on 95-32-2886Yqsf nitrogen [Mass/Vol]Urea nitrogen [Mass/volume] in Serum or Plasma 7-25[facility] CenterWBC Auto (Bld) [#/Vol]Ordered By: Lynnette Chapman on 10-38-5832MIO (Bld) [#/Vol]Leukocytes [#/volume] in Blood by Automated count3.8-11.6FProMedica Defiance Regional HospitalXR chest 2V*on 18-83-8674XW chest 2V*[facility] [place] [address] XRay Report Signed Patient: Jose Alberto Saleem MR#: [id number] : 1965 Acct:[id number] Age/Sex: 59 / F ADM Date: 08/18/24 Loc: Room: [address] [place] [address] Type: ADM INOo Attending Dr: Donis Arroyo [...] Thelma Wick M.D.08/19/2024 12:10 AM Dictation Location: [place] [address] Transcribed By: BEN 08/19/24 0010 Dictated By: Thelma Wick MD 08/18/242210 Signed By: 08/19/24 0010[facility] GroupH[facility] 11-58-5458Nnldtjnst Reminders From: Magdalena Longoria To: EU - Administrative; Sent: 08/05/2024 13:08:24 EST Show up: 03/01/2025 13:08:00 EDT Subject: 1 yr reminder Due Date/Time: 08/01/2025 13:08:00 EDT Reminder/Recall Patient [facility] 23-03-4547Ioonaoh Office/Clinic Note Urology Office/Clinic Note Chief Complaint [...] Pt to fill whichever is covered/has lower co- pay. Risks/benefits/side effects discussed Not a candidate for [...] Myrbetriq from 25mg to 50mg qd Ordered: 14177 Measure Post Void residual urine and/or bladder capacity by US- non-imaging E&M of Est. Patient Moderate 30-39 Min 10124 Urnls Dip Stick Auto w/o Microscopy POC 63202 2. Urethral pain (R39.89: Other symptoms and [...] libido which is a pleasant surprise. ( butsays it's been long enough that she's starting to consider dating again) -Continue Estrogen cream 3. Kidney stone (N20.0: Calculus of kidney) Pt was previously on HCTZ for stone prevention. Takes Flomax once daily. Increases this to BID whenfeels stone passing. Pt stopped HCTZ due to [...] day(s), # 90 tab(s), Refills(s) 3, Pharmacy: [facility] [id number], 160, cm, 08/05/24 11:29:00 EST, Height/Length Dosing, 74.2, kg, 08/05/24 11:29:00 EST, Weight Dosing tamsulosin, 0.4 mg = 1 cap(s), Oral, Daily, # 90 cap(s), Refills(s) 3, Pharmacy: [facility], 160, cm, 08/05/24 11:29:00 EST, Height/Length Dosing, 74.2, kg, 08/05/24 11:29:00 EST, Weight Dosing Follow-up With When Contact Information SALENA REDDY, CARLOS RAMOS Within 1 year Additional Instructions: Patient Education Kidney Stones, Xbcz-wl-Haih Problem List/Past Medical History Ongoing Anticoagulated Feeling (more content not included)...[facility] HospitalComment on above:Result Comment: Electronically Signed By: JENNIFER MARTINO PA-C\Date and Time Signed: 08/05/2412:20 Rosa Elena [birth year]1980Daouoxtav Reminders From: Bruna Gabriel To: EU - Administrative; Sent: 04/10/2024 15:56:05 EDT Show up: 06/05/2024 15:55:00 EDT Subject: 8 to 10 wk f/u Due Date/Time: 06/19/2024 15:54:00 EDT Reminder/Recall patient seen on 04/10/2024. patient needs an 8 to 10 wk f/u. Appointment due by 06/19/2024 [place] with [facility] PT SCHEDULED JUL 03, 2024NoFairfield [facility] CenterUrology Office/Clinic Noteon 76-17-9497Tsrnqhp Office/Clinic NoteUrology Office/Clinic Note Chief Complaint 1+yr KUB HPI [...] Flomax once daily. Increases this to BID whenfeels stone passing. Pt stopped HCTZ due to [...] E&M of Est. Patient High 40-54 Min 34025 Urnls Dip Stick Auto w/o Microscopy POC 35254 2. OAB (overactive bladder) (N32.81: Overactive bladder) [...] E&M of Est. Patient High 40-54 Min 40483 3. Urethral pain (R39.89: Other symptoms and [...] E&M of Est. Patient High 40-54 Min 51603 Orders: estradiol topical, See Instructions, 42.5 gm, Refill(s) 6, apply a pea-sized amount vaginally and around the urethra nightly x 3 weeks, then 3x per week thereafter, [id number], 160, cm, 04/10/24 15:13:00 EDT, Height/Length Dosing, 74, kg, 04/10/24 15:13... mirabegron, 25 mg = 1 tab(s), Oral, Daily, do not fill both mirabegron AND vibegron. only fill whichever has lower co-pay., X 30 day(s), # 30 tab(s), Refills(s) 11, Pharmacy: [facility] #[id number], 160, cm, 04/10/24 15:13:00 EDT, Height/Length Dosing, 74, k... vibegron, 75 mg = 1 tab(s), Oral, Daily, X 30 day(s), # 30 tab(s), Refills(s) 11, Pharmacy: [facility] #[id number], 160, cm, 04/10/24 15:13:00 EDT, Height/Length Dosing, 74, kg, 04/10/24 15:13:00 EDT, Weight Dosing Total time spent reviewing previous notes/results/external documents, preparing the chart, conducting the encounter with the patient and family, ordering tests/medications, and documenting the encounter was 40 minutes. Follow-up With When Contact Information JENNIFER MARTINO PA-C, URL Within 3 months [address] [facility] [place] [address] Additional Instructions: Patient Education Kidney Stones, Bksu-wk-Awhx Problem List/Past Medical History Ongoing Anticoagulated Feeling of incomplete b (more content not included)...[facility] HospitalComment on above:Result Comment: Electronically Signed By: JENNIFER MARTINO PA-C\.br\Date and Time Signed: 04/10/2416:09 EDTGlucose Glucometer (BldC) [Mass/Vol]on 55-64-5367Aoivmdi [Mass/Vol]79 mg/kPYkcnsa66-67VhjGefndfGlenbeigh HospitalLab Reportson 17-53-8878Jkm Reports [id number]#1.00TIFFSt. Vincent HospitalLab [id number]#1.00TIFProtestant HospitalLab Reportson 90-09-3947Gbo Reports [id number]#1.00TIFFSt. Vincent HospitalLab [id number]#1.00TIFFSt. Vincent HospitalLab [id number]#1.00TIFF St. Vincent HospitalRAD - MISCon 84-92-3850GFB - MISC [id number]#1.00TIFFMarion Hospitalurgical Pathology Reporton 74-86-1603Woqyxdqv Pathology Report(NOTE) Path Number: [id number] -- Diagnosis -- ENDOMETRIAL CURETTINGS: -BENIGN ENDOMETRIAL [...] Microscopic Description Microscopic examination performed. Processing Lab: [facility] [address] [place] [address] Interpretation Performed at [facility] [address] [place], [place] SURGICAL PATHOLOGY CONSULTATION Patient Name: JOSE ALBERTO SALEEM [facility] Rec: [id number] [facility] ANATOMIC PATHOLOGY [address] [facility] [place], [place] [address] NormalMerLawrence+Memorial Hospital NON OB TRANSVAGINALon 65-13-4349BA NON OB TRANSVAGINALTable formatting from the original result was not [...] Signed by: Gaby Tello DO 06/05/23 Final resultNormalMercy Colorado River Medical CenterCeruloplasminon 12-12-2022 Gcercpdcuipad92.6 mg/dL19.0-39.0 mg/dLNort [facility] Other Ferritinon 44-54-9689Hfnwxevi [Mass/Vol]43.7413451 ng/eHCxjyjm58.0-306.8 ng/mLNmissouri baptist medical center [facility] Other Hepatitis A Antibody Totalon 53-38-4115Bdhmsnphl A Antibody TotalNegative.[facility] Other Hepatitis B Surface Antibodyon 55-30-8829Ctzcqcuae B Surface AntibodyNon-ReactiveNon ReactiveWashington Rural Health Collaborative [employer] Other Immunoglobulin Javi 53-30-9023Eratnprcsvwyru G823 mg/dL 586-1602 mg/dLWashington Rural Health Collaborative [employer] Other 552-2609Wfkmd-Rxqlwz Microsomal Abon 87-00-1939Zvdez-Kidney Microsomal Ab1.10.0-20.0[facility] [employer] Other Mitochondrial (M2) Antibodyon 08-74-0837Givorcosvymwz (M2) Antibody<20.00.0-20.0[facility] [employer] Other Smooth Muscle Antibodyon 73-79-4496Kagbux Muscle Rjnjaeqg09-13Gcxtk Coast [employer] Other mr MRCPon 11-74-3570AF [facility] [employer] Other mr [facility] [employer] Other mr [address] [employer] Other mr TOHATCHI HEALTH CARE CENTERsendydario [address] [employer] Other mr [facility]ITALRI [facility] [place] [employer] Other mr [facility] [employer] Other mr MRCPPatient: Jose Alberto Saleem MR#: [id number] [facility] Other mr BKOA759Lhyjm [facility] Other mr MRCPDOB: 1965 Acct:[id number] [facility] Other mr MRCPAge/Sex: 57 / F ADM Date: 11/10/22[place] [facility] Other mr MRCPLoc: MR Room: Type: [facility] [employer] Other mr MRCPAttending Dr: Evert Bruno [facility] Other mr MRCPCopies to: Evert Bruno MDEast [place] [facility] Other mr MRCPOrdering Provider: Evert Bruno MDEast [place] [facility] Other mr MRCPDate of Service: 11/10/22[place] [facility] Other mr MRCPAccession #: ([id number]) MR/MR MRCP: Abdominal pain;Common bile duct dilatation;Elevated liver [facility] Other mr MRCPMR[facility] Other mr MRCPCLINICAL DATA: Elevated lipase. Abnormal outside abdominal CTEast [place] [facility] Other mr MRCPCOMPARISON: CT abdomen 10/16/2022[place] [facility] Other mr MRCPMultiecho imaging of the abdomen was performed along with radial imaging of the biliary tree.[facility] [employer] Other mr MRCPThe gallbladder surgically absent. There is no significant intrahepatic biliary dilatation. [facility] Other mr MRCPcommon duct is slightly prominent measuring up to 6 mm. It tapers toward the ampulla. No [facility] Other mr MRCPtraluminal filling defects are identified to suggest choledocholithiasis. The pancreatic duct is[place] [facility] Other mr MRCPalso borderline prominent measuring 2 - 3 mm. No intrahepatic masses are identified. No pancreaticEast [place] [facility] Other mr MRCPabnormalities are noted. The spleen and adrenal glands are within normal limits. There is [facility] Other MR MRCPhydronephrosis. There are right renal cysts. There is no aortic aneurysm. No adenopathy [facility] Other mr MRCPascites is seen. There is no dilated bowel within the iwugl-aj-dbax.[employer] Other mr MRCPORDER #: [id number] MR/MR MRCPNmissouri baptist medical center [facility] Other mr MRCPIMPRESSION:[employer] Other mr MRCPSLIGHTLY PROMINENT COMMON DUCT, WITHOUT CHOLEDOCHOLITHIASIS. THIS MAY RELATE TO PREVIOUSMercy Hospital St. LouisZAPR Other mr MRCPCHOLECYSTECTOMY.[employer] Other mr MRCPRIGHT RENAL CYSTS.[employer] Other mr MRCPNO OTHER SIGNIFICANT MRI FINDINGS.[employer] Other mr MRCPImpression dictated by: Thelma Wick M.D.11/10/2022 7:00 PMNFlatiron [employer] Other mr MRCPDictation Location: [address] [facility] Other mr MRCPTranscribed By: [facility] 11/10/[address] [place] [address] [facility] Other mr MRCPDictated By: Thelma Wick MD 11/10/22 [facility] [employer] Other mr MRCPSigned By:[employer] Other mr MRCP11/10/22 [facility] HospitalAV Homes Other albumin [Mass/volume] in Serum or PlasmaOrdered By: Evert Bruno on 33-18-7933Yruobss [Mass/Vol]4.0 g/dL3.2-5.5FProMedica Defiance Regional HospitalDirect bilirubin measurementOrdered By: Evert Bruno on 11-01-2022 Bilirubin.direct [Mass/Vol]0.1 mg/dL0.0-0.4FProMedica Defiance Regional Hospital Globulin Calc (S) [Mass/Vol]Ordered By: Imsara Bruno on 49-40-5734Kptqshpz (S) [Mass/Vol]2.5 g/dLTrinity Health System Twin City Medical CenterHepatic Panelon 11-01-2022 Albumin [Mass/Vol]4.084242 g/dLNormal3.2-5.5 g/dLEast [place] [facility] Other aLT [Catalytic activity/Vol]94 U/TJjhy07-96 U/LNorth [facility] Other bilirubin [Mass/Vol]0.0241346 mg/dLNormal0.3-1.2 mg/dL [place] [facility] Other bilirubin.indirect [Mass/Vol]0.3465925 mg/dLNormal0.0- 0.4 mg/dLEast [place] [facility] Other Protein [Mass/Vol]6.902355 g/dLNormal6.1-7.9 g/dLNosaint mary's health center [facility] Other Hepatic Panel0.5 mg/dLMyrio [facility] Other Hepatic Panel2.5 g/dLAV Homes Other Protein [Mass/volume] in Serum or PlasmaOrdered By: Imad Asaad on 11-85-4081Oiugqhf [Mass/Vol]6.5 g/dL6.1-7.9Ashtabula General Hospitalerum or plasma alanine aminotransferase measurement without P-5'-P (enzymatic activiOrdered By: Imad Asaad on 71-25-3786WZK No additional P-5'-P [Catalytic activity/Vol]94 U/D03-84WsiqvgpzxAshtabula General Hospitalerum or plasma albumin/globulin mass ratioOrdered By: Imad Asaad on 11-01-2022 Albumin/Globulin [Mass ratio]1.6 {ratio}[facility]ula General Hospitalerum or plasma alkaline phosphatase measurement (enzymatic activity/volume)Ordered By: Imad Asaad on 45-74-4999IOK [Catalytic activity/Vol]93 U/Q14-82FxsyduccxAshtabula General Hospitalerum or plasma aspartate aminotransferase measurement (enzymatic activity/volume)Ordered By: Imad Asaad on 16-26-6095JJI [Catalytic activity/Vol]66 U/H84-84SucibhrgbAshtabula General Hospitalerum or plasma non- glucuronidated bilirubin measurement (mass/volume)Ordered By: Imad Asaad on 83-45-3660Rxeapnfhi.indirect [Mass/Vol]0.5 mg/dLAshtabula General Hospitalerum or plasma total bilirubin measurement (mass/volume)Ordered By: Imad Asaad on 26-85-6804Wljilvjnq [Mass/Vol]0.6 mg/dL0.3-1.2FProMedica Defiance Regional HospitalCT ABDOMEN WO/W CONon 66-44-1040IB ABDOMEN WO/W CONEXAMINATION: CT ABDOMEN WO/W CON HISTORY: Idiopathic acute [...] Electronically authenticated by: JAE WILSON Date: 2022-10-17 08:23[facility] 71-69-8055Nwrzfzx (P) [Moles/Vol]10 umol/LCritically sph39-18Gkg [facility] HospitalComment on above:Performed By: #### COLE #### [facility] [address] [place] [address] Dr. Ayden CamAMYLASEon 20-47-2799Oizwlkh [Catalytic activity/Vol]144 U/L Critically qpjr62-978Kzc [facility] HospitalComment on above:Performed By: #### LIPA #### [facility] [address] [place] [address] Dr. Ayden GomezC AUTO DIFFon 02-07-4005IFRR #0.0 103/ulNormal0.0-0.1The [facility] HospitalComment on above:Performed By: #### CBC #### [facility] [address] [place] [address] Dr. Ayden CamBasophils/100 WBC (Bld)0.2 %Normal0.2-2.0[facility] [place] Comment on above:Performed By: #### CBC #### [facility] [address] [place] [address] Dr. Ayden Steele #0.2 103/ulNormal0.0-0.7The [facility] HospitalComment on above: Performed By: #### CBC #### [facility] [address] [place] [address] Dr. Ayden Koehlerosinophils/100 WBC (Bld)3.3 %Normal0.9-7.0The [facility] Comment on above:Performed By: #### CBC #### [facility] [address] [place] [address] Dr. Ayden Koehlerrythrocyte distribution width (RBC) [Ratio]12.1 %Pehozv95.0-15.0 [facility] OhioComment on above:Performed By: #### CBC #### [facility] [address] [place] [address] Dr. Ayden CamHematocrit (Bld) [Volume fraction]40.0 %Mhujlp28.0-48.0The [facility] HospitalComment on above:Performed By: #### CBC #### [facility] [address] [place] [address] Dr. Ayden CamHemoglobin (Bld) [Mass/Vol]14.2 g/lZJgnvta21.0-16.0The [facility] HospitalComment on above:Performed By: #### CBC #### [facility] [address] [place] [address] Dr. Ayden Dickson #0.01 10e3/ulNormal0.00-0.03The [facility] HospitalComment on above:Performed By: #### CBC #### [facility] [address] [place] [address] Dr. Ayden Dickson %0.2 %Normal0.0-0.5The [facility] HospitalComment on above: Performed By: #### CBC #### [facility] [address] [place] [address] Dr. Ayden Figueroa #1.5 103/ulNormal1.2-3.8The [facility] HospitalComment on above:Performed By: #### CBC #### [facility] [address] [place] [address] Dr. Ayden Beltránhocytes/100 WBC (Bld)24.2 %Nsiawh44.5-60.0The [facility] HospitalComment on above:Performed By: #### CBC #### [facility] [address] [place] [address] Dr. Ayden ChinoUAL DIFF REQNONormalThe [facility] HospitalComment on above: Performed By: #### CBC #### [facility] [address] [place] [address] Dr. Ayden Mccormack (RBC) [Entitic mass]30.0 hxKcihwo95.7-34.0The [facility] HospitalComment on above:Performed By: #### CBC #### [facility] [address] [place] [address] Dr. Ayden Mccormack (RBC) [Mass/Vol]35.5 g/dLCritically high29.9-35.2The [facility] HospitalComment on above:Performed By: #### CBC #### [facility] [address] [place] [address] [address] Ayden Melton (RBC) [Entitic vol]84.4 nBAttbvl74.0-99.0The [facility] HospitalComment on above:Performed By: #### CBC #### [facility] [address] [place] [address] Dr. Ayden Thornton #0.6 103/ulNormal0.3-0.8The [place] HospitalComment on above:Performed By: #### CBC #### [facility] [address] [place] [address] Dr. Ayden Atkinsonocytes/100 WBC (Bld)10.3 %Normal1.7-12.0The [facility] Comment on above:Performed By: #### CBC #### [facility] [address] [place] [address] Dr. Ayden Garrett #3.7 103/ulNormal1.4-6.5The [facility] HospitalComment on above:Performed By: #### CBC #### [facility] [address] [place] [address] Dr. Ayden Hongutrophils/100 WBC (Bld)61.8 %Vwqdka64.0-75.0The [facility] HospitalComment on above:Performed By: #### CBC #### [facility] [address] [place] [address] Dr. Ayden Limonlet mean volume (Bld) [Entitic vol]9.0 fLCritically low 9.5-13.5The [facility] HospitalComment on above:Performed By: #### CBC #### [facility] [address] [place] [address] Dr. Ayden CamPLT191 103/uhZdwisr168-569Kmj [facility] HospitalComment on above: Performed By: #### CBC #### [facility] [address] [place] [address] Dr. Ayden CamRBC4.74 106/ulNormal4.20-5.40The [facility] HospitalComment on above:Performed By: #### CBC #### [facility] [address] [place] [address] Dr. Ayden CamWBC6.0 103/ulNormal4.0-11.0The [facility] HospitalComment on above: Performed By: #### CBC #### [facility] [address] [place] [address] Dr. Ayden CamLIPASEon 33-90-0051Cucdoo [Catalytic activity/Vol]168.0 U/LNormal 73.0-393.0The [facility] HospitalComment on above:Performed By: #### LACT #### [facility] [address] [place] [address] Dr. Ayden CamPROMagali 14(COMP METB)on 47-14-1204Ipaeshh [Mass/Vol]3.6 g/dLNormal 3.4-5.0The [facility] HospitalComment on above:Performed By: #### LIPA #### [facility] [address] [place] [address] Dr. Ayden CamAlbumin/Globulin [Mass ratio]1.1 {ratio}NormalThe [facility] Hospitalment on above:Performed By: #### LIPA #### [facility] [address] [place] [address] Dr. Ayden Tobar [Catalytic activity/Vol]93 U/NDbpcoe82-668Cpu [facility] Hospitalment on above:Performed By: #### LIPA #### [facility] [address] [place] [address] Dr. Ayden Hancock [Catalytic activity/Vol]52 U/ZXelyor11-34Swx [facility] HospitalComment on above:Performed By: #### LIPA #### [facility] [address] [place] [address] Dr. Ayden Terrell gap [Moles/Vol]10.2 mmol/LNormalThe [facility] on above:Performed By: #### LIPA #### [facility] [address] [place] [address] Dr. Ayden Shetty [Catalytic activity/Vol]33 U/VJrphhp31-98Svh [facility] HospitalComment on above:Performed By: #### LIPA #### [facility] [address] [place] [address] [address] Ayden CamBilirubin [Mass/Vol]0.3 mg/dLNormal0.2-1.0The [facility] Comment on above:Performed By: #### LIPA #### [facility] [address] [place] [address] Dr. Ayden CamCalcium [Mass/Vol]9.4 mg/dLNormal8.5-10.1The [facility] Comment on above:Performed By: #### LIPA #### [facility] [address] [place] [address] Dr. Ayden CamChloride [Moles/Vol]99 mmol/PDokvbu60-188Gdh [facility] Comment on above:Performed By: #### LIPA #### [facility] [address] [place] [address] Dr. Ayden CamCO2 [Moles/Vol]33.7 mmol/LCritically high21.0-32.0The [facility] HospitalComment on above:Performed By: #### LIPA #### [facility] [address] [place] [address] Dr. Ayden CamCreatinine [Mass/Vol]0.62 mg/dLNormal0.55-1.02[facility] [place]Comment on above:Performed By: #### LIPA #### [facility] [address] [place] [address] Dr. Ayden KoehlerGFR-AF SURINAMESE>60Normal>=60The [facility] HospitalComment on above:Performed By: #### LIPA #### [facility] [address] [place] [address] Dr. Ayden KoehlerGFR-NON AF SURINAMESE>60Normal>=60The [facility] HospitalComment on above:Performed By: #### LIPA #### [facility] [address] [place] [address] Dr. Ayden CamGlobulin (S) [Mass/Vol]3.4 g/dLNormWyandot Memorial HospitalComment on above:Performed By: #### LIPA #### [facility] [address] [address] [address] Ayden CamGlucose [Mass/Vol]105 mg/mOLucvov92-110AulKing'S [facility]aughters [facility] [place] Comment on above:Performed By: #### LIPA #### [facility] [address] [address] [address] Ayden CamPotassium [Moles/Vol]3.9 mmol/LNormal3.5-5.1[facility] [place] Comment on above:Performed By: #### LIPA #### [facility] [address] [place] [address] Dr. Ayden CamProtein [Mass/Vol]7.0 g/dLNormal6.4-8.2[facility] [place] Comment on above:Performed By: #### LIPA #### [facility] [address] [place] [address] Dr. Ayden CamSodium [Moles/Vol]139 mmol/NZuwxre223-881DmbKing'S Daughters Medical [facility] [place] Comment on above:Performed By: #### LIPA #### [facility] [address] [place] [address] Dr. Ayden CamUrea nitrogen [Mass/Vol]28.0 mg/dLCritically high7.0-18.0[facility] OhioComment on above:Performed By: #### LIPA #### [facility] [address] [place] [address] Dr. Ayden CamUrea nitrogen/Creatinine [Mass ratio]45.2 mg/mgNoChildren's Hospital for RehabilitationComment on above:Performed By: #### LIPA #### [facility] [address] [place] [address] Dr. Ayden Dickerson [id number] (P) [Moles/Vol]16 umol/BZevfop83-52 [facility] OhioComment on above:Performed By: #### AMM #### [facility] [address] [place] [address] Dr. Ayden ThurmanASEcarmencita 34-05-7915Rfmgaso [Catalytic activity/Vol]189 U/L Critically fwmk69-728Fea [facility] HospitalComment on above:Performed By: #### LIPA #### [facility] [address] [address] [address] Ayden GomezC AUTO DIFFon [id number] #0.0 103/ulNormal0.0-0.1The [facility] HospitalComment on above:Performed By: #### CBC #### [facility] [address] [address] [address] Ayden CamBasophils/100 WBC (Bld)0.2 %Normal0.2-2.0[facility] [place] Comment on above:Performed By: #### CBC #### [facility] [address] [place] [address] Dr. Ayden Steele #0.3 103/ulNormal0.0-0.7The [facility] HospitalComment on above: Performed By: #### CBC #### [facility] [address] [address] [address] Ayden Koehlerosinophils/100 WBC (Bld)5.2 %Normal0.9-7.0The [facility] Comment on above:Performed By: #### CBC #### [facility] [address] [place] [address] Dr. Ayden Koehlerrythrocyte distribution width (RBC) [Ratio]12.3 %Vmqiux09.0-15.0 The [facility] HospitalComment on above:Performed By: #### CBC #### [facility] [address] [place] [address] Dr. Ayden CamHematocrit (Bld) [Volume fraction]36.9 %Eguwdg02.0-48.0The [facility] HospitalComment on above:Performed By: #### CBC #### [facility] [address] [place] [address] Dr. Ayden CamHemoglobin (Bld) [Mass/Vol]12.4 g/xJPhhtoq39.0-16.0The [facility] HospitalComment on above:Performed By: #### CBC #### [facility] [address] [address] [address] Ayden Dickson #0.01 10e3/ulNormal0.00-0.03The [facility] HospitalComment on above:Performed By: #### CBC #### [facility] [address] [place] [address] Dr. Ayden Dickson %0.2 %Normal0.0-0.5The [facility] HospitalComment on above: Performed By: #### CBC #### [facility] [address] [place] [address] Dr. Ayden Figueroa #1.8 103/ulNormal1.2-3.8The [facility] HospitalCompaul [facility] on above:Performed By: #### CBC #### [facility] [address] [place] [address] Dr. Ayden Beltránhocytes/100 WBC (Bld)31.3 %Wuhnwf83.5-60.0The [facility] HospitalComment on above:Performed By: #### CBC #### [facility] [address] [place] [address] Dr. Ayden ChinoUAL DIFF REQNONormalThe [facility] HospitalCompaul [facility] on above: Performed By: #### CBC #### [facility] [address] [place] [address] Dr. Ayden Mccormack (RBC) [Entitic mass]30.0 ocZfmzwe22.7-34.0The [facility] Hospitalment on above:Performed By: #### CBC #### [facility] [address] [place] [address] Dr. Ayden Mccormack (RBC) [Mass/Vol]33.6 g/oFRrxsjx56.9-35.2The [facility] Hospitalment on above:Performed By: #### CBC #### [facility] [address] [place] [address] Dr. Ayden Mccormack (RBC) [Entitic vol]89.1 gITsfnsj38.0-99.0The [facility] HospitalComment on above:Performed By: #### CBC #### [facility] [address] [address] [address] Ayden Thornton #0.6 103/ulNormal0.3-0.8The [facility] HospitalComment on above:Performed By: #### CBC #### [facility] [address] [address] [address] Ayden Atkinsonocytes/100 WBC (Bld)10.1 %Normal1.7-12.0The [facility] Comment on above:Performed By: #### CBC #### [facility] [address] [place] [address] Dr. Ayden Garrett #3.1 103/ulNormal1.4-6.5The [facility] HospitalComment on above:Performed By: #### CBC #### [facility] [address] [place] [address] Dr. Ayden Hongutrophils/100 WBC (Bld)53.0 %Ysabxq42.0-75.0The [facility] HospitalComment on above:Performed By: #### CBC #### [facility] [address] [place] [address] Dr. Ayden Limonlet mean volume (Bld) [Entitic vol]9.4 fLCritically low 9.5-13.5The [facility] HospitalComment on above:Performed By: #### CBC #### [facility] [address] [place] [address] Dr. Ayden CamPLT153 103/wbCsmkpz705-408Epl [facility] HospitalComment on above: Performed By: #### CBC #### [facility] [address] [place] [address] Dr. Ayden CamRBC4.14 106/ulCritically low4.20-5.40The [facility] HospitalComment on above:Performed By: #### CBC #### [facility] [address] [place] [address] Dr. Ayden CamWBC5.8 103/ulNormal4.0-11.0The [facility] HospitalComment on above: Performed By: #### CBC #### [facility] [address] [place] [address] Dr. Ayden CamLIPASEon 42-69-6193Jprrtx [Catalytic activity/Vol]166.0 U/LNormal 73.0-393.0The [facility] HospitalComment on above:Performed By: #### LIPA #### [facility] [address] [place] [address] Dr. Ayden Asencio PROFILEon 75-08-3396Xjwqdrb [Mass/Vol]3.2 g/dLCritically low3.4-5.0The [facility] HospitalComment on above:Performed By: #### LIPA #### [facility] [address] [place] [address] Dr. Ayden CamAlbumin/Globulin [Mass ratio]1.3 {ratio}NormalThe [facility] HospitalComment on above:Performed By: #### LIPA #### [facility] [address] [place] [address] Dr. Ayden CoburnP [Catalytic activity/Vol]88 U/NEjfpxg70-126Zrd [facility] HospitalComment on above:Performed By: #### LIPA #### [facility] [address] [place] [address] Dr. Ayden Hancock [Catalytic activity/Vol]66 U/LCritically uevn83-89Ntq [facility] HospitalComment on above:Performed By: #### LIPA #### [facility] [address] [place] [address] Dr. Ayden Shetty [Catalytic activity/Vol]39 U/LCritically uypx07-21Xvq [facility] HospitalComment on above:Performed By: #### LIPA #### [facility] [address] [place] [address] Dr. Ayden Seasr, CONJUGATED0.1 mg/dLNormal0.0-0.2The [facility] on above:Performed By: #### LIPA #### [facility] [address] [place] [address] Dr. Ayden Hackettirubin [Mass/Vol]0.4 mg/dLNormal0.2-1.0[facility] [place] Comment on above:Performed By: #### LIPA #### [facility] [address] [place] [address] Dr. Ayden CamGlobulin (S) [Mass/Vol]2.4 g/dLNormalThe [facility] HospitalComment on above:Performed By: #### LIPA #### [facility] [address] [place] [address] Dr. Ayden CamProtein [Mass/Vol]5.6 g/dLCritically low6.4-8.2The [facility] HospitalComment on above:Performed By: #### LIPA #### [facility] [address] [place] [address] Dr. Ayden CamPROF CHEM 8 (BAS METB)on 39-99-7433Xgaof gap [Moles/Vol]6.8 mmol/LNormalThe [facility] HospitalComment on above:Performed By: #### LIPA #### [facility] [address] [place] [address] Dr. Ayden CamCalcium [Mass/Vol]8.6 mg/dLNormal8.5-10.1[facility] [place] Comment on above:Performed By: #### LIPA #### [facility] [address] [place] [address] Dr. Ayden CamChloride [Moles/Vol]102 mmol/FIqkrtt92-834Yah [facility] Comment on above:Performed By: #### LIPA #### [facility] [address] [place] [address] Dr. Ayden CamCO2 [Moles/Vol]32.6 mmol/LCritically high21.0-32.0The [facility] HospitalComment on above:Performed By: #### LIPA #### [facility] [address] [place] [address] Dr. Ayden CamCreatinine [Mass/Vol]0.61 mg/dLNormal0.55-1.02The [facility] HospitalComment on above:Performed By: #### LIPA #### [facility] [address] [address] [address] Hensley ChangEGFR-AF SURINAMESE>60Normal>=60The [facility] HospitalComment on above:Performed By: #### LIPA #### [facility] [address] [address] [address] Ayden KoehlerGFR-NON AF SURINAMESE>60Normal>=60The [facility] HospitalComment on above:Performed By: #### LIPA #### [facility] [address] [address] [address] Ayden CamGlucose [Mass/Vol]91 mg/eUCutkqw70-375Qex [facility] Comment on above:Performed By: #### LIPA #### [facility] [address] [place] [address] Dr. Ayden CamPotassium [Moles/Vol]3.4 mmol/LCritically low3.5-5.1The [facility] HospitalComment on above:Performed By: #### LIPA #### [facility] [address] [place] [address] Dr. Ayden CamSodium [Moles/Vol]138 mmol/FVdqybq185-296Khn [facility] Comment on above:Performed By: #### LIPA #### [facility] [address] [place] [address] Dr. Ayden CamUrea nitrogen [Mass/Vol]13.0 mg/dLNormal7.0-18.0The [facility] HospitalComment on above:Performed By: #### LIPA #### [facility] [address] [place] [address] Dr. Ayden CamUrea nitrogen/Creatinine [Mass ratio]21.3 mg/mgNormalThe [facility] HospitalComment on above:Performed By: #### LIPA #### [facility] [address] [place] [address] Dr. Ayden CamAMMONIAon 10-33-3962Vvdflhy (P) [Moles/Vol]10 umol/LCritically ncm01-13Sdc [facility] HospitalComment on above:Performed By: #### AMM #### [facility] [address] [place] [address] Dr. Ayden CamAMYLASEon 59-91-2973Xpxblpz [Catalytic activity/Vol]109 U/LNormal 25-115The [facility] HospitalComment on above:Performed By: #### COLE #### [facility] [address] [place] [address] Dr. Ayden GomezC AUTO DIFFon 65-63-0821UETB #0.0 103/ulNormal0.0-0.1The [facility] HospitalComment on above:Performed By: #### LIPA #### [facility] [address] [place] [address] Dr. Ayden CamBasophils/100 WBC (Bld)0.3 %Normal0.2-2.0[facility] [place] Comment on above:Performed By: #### LIPA #### [facility] [address] [place] [address] Dr. Ayden Steele #0.3 103/ulNormal0.0-0.7The [facility] HospitalComment on above: Performed By: #### LIPA #### [facility] [address] [place] [address] Dr. Ayden Koehlerosinophils/100 WBC (Bld)4.3 %Normal0.9-7.0[facility] [place] Comment on above:Performed By: #### LIPA #### [facility] [address] [place] [address] Dr. Ayden Koehlerrythrocyte distribution width (RBC) [Ratio]12.2 %Ntpntu25.0-15.0 The [facility] HospitalComment on above:Performed By: #### LIPA #### [facility] [address] [place] [address] Dr. Ayden CamHematocrit (Bld) [Volume fraction]38.9 %Anqrcb53.0-48.0The [facility] HospitalComment on above:Performed By: #### LIPA #### [facility] [address] [place] [address] Dr. Ayden CamHemoglobin (Bld) [Mass/Vol]12.8 g/lKZsrmzm49.0-16.0The [facility] HospitalComment on above:Performed By: #### LIPA #### [facility] [address] [place] [address] Dr. Ayden Dickson #0.01 10e3/ulNormal0.00-0.03The [facility] HospitalComment on above:Performed By: #### LIPA #### [facility] [address] [place] [address] Dr. Ayden Dickson %0.2 %Normal0.0-0.5The [facility] HospitalComment on above: Performed By: #### LIPA #### [facility] [address] [place] [address] Dr. Ayden Figueroa #1.9 103/ulNormal1.2-3.8The [facility] HospitalComment on above:Performed By: #### LIPA #### [facility] [address] [place] [address] Dr. Ayden Beltránhocytes/100 WBC (Bld)31.4 %Zykrde11.5-60.0The [facility] HospitalComment on above:Performed By: #### LIPA #### [facility] [address] [place] [address] Dr. Ayden ChinoUAL DIFF REQNONormalThe [facility] HospitalComment on above: Performed By: #### LIPA #### [facility] [address] [place] [address] Dr. Ayden Mccormack (RBC) [Entitic mass]29.6 imIpextx22.7-34.0The [facility] HospitalComment on above:Performed By: #### LIPA #### [facility] [address] [place] [address] Dr. Ayden Mccormack (RBC) [Mass/Vol]32.9 g/lWJoxgts80.9-35.2The [facility] HospitalComment on above:Performed By: #### LIPA #### [facility] [address] [place], [place] [id number] Dr. Ayden Melton (RBC) [Entitic vol]89.8 xKAylqit64.0-99.0The [facility] on above:Performed By: #### LIPA #### [facility] [address] [place] [address] Dr. Ayden Thornton #0.6 103/ulNormal0.3-0.8The [facility] HospitalComment on above:Performed By: #### LIPA #### [facility] [address] [place] [address] Dr. Ayden Atkinsonocytes/100 WBC (Bld)10.1 %Normal1.7-12.0The [facility] Comment on above:Performed By: #### LIPA #### [facility] [address] [place] [address] Dr. Ayden Garrett #3.2 103/ulNormal1.4-6.5The [facility] HospitalComment on above:Performed By: #### LIPA #### [facility] [address] [place] [address] Dr. Ayden Hongutrophils/100 WBC (Bld)53.7 %Iprcvw07.0-75.0The [facility] on above:Performed By: #### LIPA #### [facility] [address] [place] [address] Dr. Ayden Jones mean volume (Bld) [Entitic vol]9.7 fLNormal9.5-13.5The [facility] HospitalComment on above:Performed By: #### LIPA #### [facility] [address] [place] [address] Dr. Ayden CamPLT168 103/jsBvntxj042-522Crw [facility] HospitalComment on above: Performed By: #### LIPA #### [facility] [address] [place] [address] Dr. Ayden CamRBC4.33 106/ulNormal4.20-5.40The [facility] HospitalComment on above:Performed By: #### LIPA #### [facility] [address] [place] [address] Dr. Ayden CamWBC6.0 103/ulNormal4.0-11.0The [facility] HospitalComment on above: Performed By: #### LIPA #### [facility] [address] [place] [address] Dr. Ayden CamLIPASEon 49-32-2781Wjagxz [Catalytic activity/Vol]151.0 U/LNormal 73.0-393.0The [facility] HospitalComment on above:Performed By: #### LIPA #### [facility] [address] [place] [address] Dr. Ayden Asencio PROFILEon 97-57-3462Uaegeed [Mass/Vol]3.2 g/dLCritically low3.4-5.0The [facility] HospitalComment on above:Performed By: #### LACT #### [facility] [address] [place] [address] Dr. Ayden CamAlbumin/Globulin [Mass ratio]1.1 {ratio}NormalThe [facility] HospitalComment on above:Performed By: #### LACT #### [facility] [address] [place] [address] Dr. Ayden Tobar [Catalytic activity/Vol]82 U/FFmepoh40-127Qti [facility]ment on above:Performed By: #### LACT #### [facility] [address] [place] [address] Dr. Ayden Hancock [Catalytic activity/Vol]70 U/LCritically xpvp13-52Ohv [facility] HospitalComment on above:Performed By: #### LACT #### [facility] [address] [place] [address] Dr. Ayden CamAST [Catalytic activity/Vol]36 U/GCrjyfw85-37Fnc [facility] on above:Performed By: #### LACT #### [facility] [address] [place] [address] Dr. Ayden Sears, CONJUGATED0.1 mg/dLNormal0.0-0.2The [facility] Comment on above:Performed By: #### LACT #### [facility] [address] [address] [address] Ayden CamBilirubin [Mass/Vol]0.3 mg/dLNormal0.2-1.0The [facility] Comment on above:Performed By: #### LACT #### [facility] [address] [place] [address] Dr. Ayden CamGlobulin (S) [Mass/Vol]3.0 g/dLNormalThe [facility] HospitalComment on above:Performed By: #### LACT #### [facility] [address] [place] [address] Dr. Ayden CamProtein [Mass/Vol]6.2 g/dLCritically low6.4-8.2The [facility] HospitalComment on above:Performed By: #### LACT #### [facility] [address] [place] [address] Dr. Ayden CamPROF CHEM 8 (BAS METB)on 01-21-8761Ivaxi gap [Moles/Vol]9.5 mmol/LNormalThe [facility] HospitalComment on above:Performed By: #### BMP #### [facility] [address] [place] [address] Dr. Ayden CamCalcium [Mass/Vol]8.9 mg/dLNormal8.5-10.1The [facility] Comment on above:Performed By: #### BMP #### [facility] [address] [place] [address] Dr. Ayden CamChloride [Moles/Vol]105 mmol/IBrytim95-542Fos [facility] Comment on above:Performed By: #### BMP #### [facility] [address] [place] [address] Dr. Ayden CamCO2 [Moles/Vol]29.6 mmol/ITadubn69.0-32.0The [facility] Comment on above:Performed By: #### BMP #### [facility] [address] [place] [address] Dr. Ayden CamCreatinine [Mass/Vol]0.56 mg/dLNormal0.55-1.02The [facility] HospitalComment on above:Performed By: #### BMP #### [facility] [address] [address] [address] Ayden KoehlerGFR-AF SURINAMESE>60Normal>=60The [facility] HospitalComment on above:Performed By: #### BMP #### [facility] [address] [address] [address] Ayden KoehlerGFR-NON AF SURINAMESE>60Normal>=60The [facility] HospitalComment on above:Performed By: #### BMP #### [facility] [address] [address] [address] Ayden CamGlucose [Mass/Vol]88 mg/wQXieytz07-767Lry [facility] Comment on above:Performed By: #### BMP #### [facility] [address] [address] [address] Ayden CamPotassium [Moles/Vol]4.1 mmol/LNormal3.5-5.1The [facility] Comment on above:Performed By: #### BMP #### [facility] [address] [address] [address] Ayden CamSodium [Moles/Vol]140 mmol/QNsxana099-378Ysb [facility] Comment on above:Performed By: #### BMP #### [facility] [address] [address] [address] Ayden CamUrea nitrogen [Mass/Vol]15.0 mg/dLNormal7.0-18.0The [facility] HospitalComment on above:Performed By: #### BMP #### [facility] [address] [address] [address] Ayden Santos nitrogen/Creatinine [Mass ratio]26.8 mg/mgNormalThe [facility] HospitalComment on above:Performed By: #### BMP #### [facility] [address] [address] [address] Ayden Hallman Jhony [id number] ABDEXAMINATION: US ABD HISTORY: Abdominal pain ; epigastric [...] Electronically authenticated by: RONAN TORIBIO Date: 2022-10-05 09:52NoChildren's Hospital for RehabilitationXR KUB 1 VIEWon [id number] KUB 1 VIEWEXAMINATION: XR KUB 1 VIEW HISTORY: Abdominal pain [...] Electronically authenticated by: RONAN TORIBIO Date: 2022-10-05 09:55NoChildren's Hospital for RehabilitationAMYLASEon 82-23-3550Urwxldp [Catalytic activity/Vol]124 U/L Critically ypdz58-287Zxn [facility] HospitalComment on above:Performed By: #### PAULY, COLE, CMP #### [facility] [address] [place], [place] [address] Dr. Ayden Abdul AUTO DIFFon 35-97-4507YQCZ #0.0 103/ulNormal0.0-0.1The [facility] HospitalComment on above:Performed By: #### LIPA #### [facility] [address] [place] [address] [address] Ayden CamBasophils/100 WBC (Bld)0.3 %Normal0.2-2.0The [facility] Comment on above:Performed By: #### LIPA #### [facility] [address] [place] [address] Dr. Ayden Steele #0.2 103/ulNormal0.0-0.7The [facility] HospitalComment on above: Performed By: #### LIPA #### [facility] [address] [place] [address] Dr. Ayden Koehlerosinophils/100 WBC (Bld)2.9 %Normal0.9-7.0The [facility] Comment on above:Performed By: #### LIPA #### [facility] [address] [place] [address] Dr. Ayden Koehlerrythrocyte distribution width (RBC) [Ratio]12.3 %Eczkzu42.0-15.0 The [facility] HospitalComment on above:Performed By: #### LIPA #### [facility] [address] [place] [address] Dr. Ayden CamHematocrit (Bld) [Volume fraction]42.0 %Biaeve32.0-48.0The [facility] HospitalComment on above:Performed By: #### LIPA #### [facility] [address] [place] [address] Dr. Ayden CamHemoglobin (Bld) [Mass/Vol]14.3 g/yFSccqwp37.0-16.0The [facility] HospitalComment on above:Performed By: #### LIPA #### [facility] [address] [place] [address] Dr. Ayden Dickson #0.02 10e3/ulNormal0.00-0.03The [facility] HospitalComment on above:Performed By: #### LIPA #### [facility] [address] [place] [address] Dr. Ayden Dickson %0.3 %Normal0.0-0.5The [facility] HospitalComment on above: Performed By: #### LIPA #### [facility] [address] [place] [address] Dr. Ayden Figueroa #1.7 103/ulNormal1.2-3.8The [facility] HospitalComment on above:Performed By: #### LIPA #### [facility] [address] [place] [address] Dr. Ayden Beltránhocytes/100 WBC (Bld)22.5 %Rlwfwn55.5-60.0The [facility] HospitalComment on above:Performed By: #### LIPA #### [facility] [address] [place] [address] Dr. Ayden Melendez DIFF REQNONormalThe [facility] HospitalComment on above: Performed By: #### LIPA #### [facility] [address] [place] [address] Dr. Ayden Mccormack (RBC) [Entitic mass]30.1 cfOjtjwk33.7-34.0The [facility] HospitalComment on above:Performed By: #### LIPA #### [facility] [address] [place] [address] Dr. Ayden Mccormack (RBC) [Mass/Vol]34.0 g/dCBmvrro10.9-35.2The [facility] HospitalComment on above:Performed By: #### LIPA #### [facility] [address] [place] [address] Dr. Ayden Mccormack (RBC) [Entitic vol]88.4 rEQttyyx67.0-99.0The [facility] HospitalComment on above:Performed By: #### LIPA #### [facility] [address] [place] [address] Dr. Ayden Thornton #0.5 103/ulNormal0.3-0.8The [facility] HospitalComment on above:Performed By: #### LIPA #### [facility] [address] [place] [address] Dr. Ayden Atkinsonocytes/100 WBC (Bld)6.0 %Normal1.7-12.0[facility] [place] Comment on above:Performed By: #### LIPA #### [facility] [address] [place] [address] Dr. Ayden Garrett #5.2 103/ulNormal1.4-6.5The [facility] HospitalComment on above:Performed By: #### LIPA #### [facility] [address] [place] [address] Dr. Ayden Hongutrophils/100 WBC (Bld)68.0 %Vuhaam05.0-75.0The [facility] HospitalComment on above:Performed By: #### LIPA #### [facility] [address] [place] [address] Dr. Ayden Limonlet mean volume (Bld) [Entitic vol]9.6 fLNormal9.5-13.5The [facility] HospitalComment on above:Performed By: #### LIPA #### [facility] [address] [place] [address] Dr. Ayden CamPLT183 103/amBbknyy056-181Rfi [facility] HospitalComment on above: Performed By: #### LIPA #### [facility] [address] [place] [address] Dr. Ayden CamRBC4.75 106/ulNormal4.20-5.40The [facility] HospitalComment on above:Performed By: #### LIPA #### [facility] [address] [place] [address] Dr. Ayden CamWBC7.6 103/ulNormal4.0-11.0The [facility] HospitalComment on above: Performed By: #### LIPA #### [facility] [address] [place] [address] Dr. Ayden Moore-19 PCR (CVDTB)on 50-67-1225JUAM-CoV-2 (COVID-19) RNA LOWELL+probe Ql (Unsp spec)Not detectedNormalNOT DETECTEDThe [facility] Comment on above:Result Comment: When diagnostic testing is negative, the [...] for this test is supported by the Mixer Operator of Health and Human Service's declaration that circumstances exist to justify the emergency use of in vitro diagnostics for the detection and/or diagnosis of the virus that causes COVID-19. This EUA will remain in effect for the duration of the COVID-19 declaration justifying emergency of IVDs, unless it is terminated or revoked by the FDA (after which the test may no longer be used).Performed By: #### LIPA #### [facility] [address] [place] [address] Dr. Ayden Mcintyre URINE PROFILEon 63-49-2877Ygbhvsisj Ql (U)NegativeNormal NEGATIVEKing'S Daughters Medical Center [place]Comment on above:Performed By: #### LACT #### [facility] [address] [place] [address] Dr. Ayden CamClarity (U)CLEARNormalCLEARKing'S Daughters Medical Center [place]Comment on above: Performed By: #### LACT #### [facility] [address] [place] [address] Dr. Ayden Santos (U)LT. YELLOWNormalYELLOWKing'S Daughters Medical Center [place]Comment on above:Performed By: #### LACT #### [facility] [address] [place] [address] Dr. Ayden Pham micrscopic examination will be performed if indicated. NormalThe [facility] HospitalComment on above:Performed By: #### LACT #### [facility] [address] [place] [address] Dr. Ayden CamGlucose Ql (U)NegativeNormalNEGATIVEKing'S Daughters Medical Center [place]Comment on above:Performed By: #### LACT #### [facility] [address] [place] [address] Dr. Yilan ChangHemoglobin Ql (U)NegativeNormalNEGATIVEKing'S Daughters [facility] [place] Comment on above:Performed By: #### LACT #### [facility] [address] [address] [address] Ayden Carvajalones Ql (U)NegativeNormalNEGATIVEKing'S Daughters Medical Center [place]Comment on above:Performed By: #### LACT #### [facility] [address] [address] [address] Ayden CamLEUKOCYTESNegativeNormalNEGATIVEThe [facility] HospitalComment on above:Performed By: #### LACT #### [facility] [address] [place] [address] Dr. Ayden Moyatrite Ql (U)NegativeNormalNEGATIVEKing'S Daughters Medical Center [place]Comment on above:Performed By: #### LACT #### [facility] [address] [place] [address] Dr. Ayden CmapH (U)8.5 [pH]Normal5-9The [facility] HospitalComment on above: Performed By: #### LACT #### [facility] [address] [place] [address] Dr. Ayden CamSPEC GRAVITY1.234Hirqzs5.005-<=1.025The [facility] HospitalComment on above:Performed By: #### LACT #### [facility] [address] [place] [address] Dr. Ayden Clark PROTEINNegativeNormalNEGATIVE/ TRACEThe [facility] Comment on above:Performed By: #### LACT #### [facility] [address] [place] [address] Dr. Ayden Alcala MICRO INDNOT INDICATEDNoalThToledo HospitalComment on above:Performed By: #### LACT #### [facility] [address] [place] [address] Dr. Ayden Salinasbilinogen Qn (U)0.2 {Peggy'U}/dLNormal0.2 - 1.0The [facility] HospitalComment on above:Performed By: #### LACT #### [facility] [address] [place] [address] Dr. Ayden CamLACTATE/LACTIC ACIDon 45-09-2444Qyfutpo [Moles/Vol]0.8 mmol/L Normal0.4-1.9The [facility] HospitalComment on above:Performed By: #### LACT #### [facility] [address] [place] [address] Dr. Ayden CamLIPASEon 47-65-6278Fdztdq [Catalytic activity/Vol]170.0 U/LNormal 73.0-393.0The [facility] HospitalComment on above:Performed By: #### LACT #### [facility] [address] [place] [address] Dr. Ayden CamPROF 14(COMP METB)on 55-49-6467Hhcsdvj [Mass/Vol]3.8 g/dLNormal 3.4-5.0The [facility] HospitalComment on above:Performed By: #### LACT #### [facility] [address] [place] [address] Dr. Ayden CamAlbumin/Globulin [Mass ratio]1.1 {ratio}NormalThe [facility] HospitalComment on above:Performed By: #### LACT #### [facility] [address] [place] [address] Dr. Ayden Tobar [Catalytic activity/Vol]101 U/AKnnjkt62-258Fbw [facility] HospitalComment on above:Performed By: #### LACT #### [facility] [address] [place] [address] Dr. Ayden Hancock [Catalytic activity/Vol]94 U/LCritically cnjd09-58Lao [facility] HospitalComment on above:Performed By: #### LACT #### [facility] [address] [place] [address] Dr. Ayden Terrell gap [Moles/Vol]11.1 mmol/LNormalThe [facility] on above:Performed By: #### LACT #### [facility] [address] [place] [address] Dr. Ayden Shetty [Catalytic activity/Vol]59 U/LCritically zvtw80-83Kxj [facility] HospitalComment on above:Performed By: #### LACT #### [facility] [address] [address] [address] Ayden CamBilirubin [Mass/Vol]0.3 mg/dLNormal0.2-1.0The [facility] Comment on above:Performed By: #### LACT #### [facility] [address] [address] [address] Ayden CamCalcium [Mass/Vol]9.5 mg/dLNormal8.5-10.1The [facility] Comment on above:Performed By: #### LACT #### [facility] [address] [address] [address] Ayden CamChloride [Moles/Vol]99 mmol/IAsheyi22-710Eki [facility] Comment on above:Performed By: #### LACT #### [facility] [address] [place] [address] Dr. Ayden CamCO2 [Moles/Vol]29.7 mmol/RFlgeuk71.0-32.0The [facility] Comment on above:Performed By: #### LACT #### [facility] [address] [address] [address] Ayden CamCreatinine [Mass/Vol]0.61 mg/dLNormal0.55-1.02The [facility] HospitalComment on above:Performed By: #### LACT #### [facility] [address] [address] [address] Ayden KoehlerGFR-AF SURINAMESE>60Normal>=60The [facility] HospitalComment on above:Performed By: #### LACT #### [facility] [address] [address] [address] Ayden KoehlerGFR-NON AF SURINAMESE>60Normal>=60The [facility] HospitalComment on above:Performed By: #### LACT #### [facility] [address] [address] [address] Ayden CamGlobulin (S) [Mass/Vol]3.4 g/dLNormalThe [facility] HospitalComment on above:Performed By: #### LACT #### [facility] [address] [address] [address] Ayden CamGlucose [Mass/Vol]111 mg/dLCritically wvhv07-292Rcr [facility] HospitalComment on above:Performed By: #### LACT #### [facility] [address] [address] [address] Ayden CamPotassium [Moles/Vol]3.8 mmol/LNormal3.5-5.1The [facility] Comment on above:Performed By: #### LACT #### [facility] [address] [address] [address] Ayden CamProtein [Mass/Vol]7.2 g/dLNormal6.4-8.2[facility] [place] Comment on above:Performed By: #### LACT #### [facility] [address] [address] [address] Ayden CamSodium [Moles/Vol]136 mmol/LXtonnj703-361Vqu [facility] Comment on above:Performed By: #### LACT #### [facility] [address] [address] [address] Ayden CamUrea nitrogen [Mass/Vol]23.0 mg/dLCritically high7.0-18.0The [facility] HospitalComment on above:Performed By: #### LACT #### [facility] [address] [address] [address] Ayden CamUrea nitrogen/Creatinine [Mass ratio]37.7 mg/mgNormalThe [facility] HospitalComment on above:Performed By: #### LACT #### [facility] [address] [address] [address] Ayden Negrete, HIGH SENSITIVITYon 50-27-7006HNAUUK4.9 pg/mLNormal 4.0-51.3The [facility] HospitalComment on above:Result Comment: CUT-OFF POINTS HAVE BEEN ESTABLISHED BASED ON THE FOURTH UNIVERSAL DEFINITIONS OF MYOCARDIAL INFARCTION. THE UPPER REFERENCE LIMIT (URL) OF TROPONIN, DEFINED THE 99TH PERCENTILE OF cTnI DISTRIBUTION IN A REFERENCE POPULATION, HAS BEEN CONFIRMED THE DECISION THRESHOLD FOR [place] DIAGNOSIS.Performed By: #### LACT #### [facility] [address] [address] [address] Ayden MaddenID PROFILEon 34-60-7509HNRB-HDL RATIO NORMSPremier HealthComment on above:Result Comment: 3.3 - 4.4 LOW RISK 4.4 - 7.1 AVERAGE RISK 7.1 - 11.0 MODERATE RISK >11.0 HIGH RISKPerformed By: #### LIPA #### [facility] [address] [address] [address] Ayden CamCholesterol [Mass/Vol]116 mg/dLNormal<=200[facility] [place] Comment on above:Performed By: #### LIPA #### [facility] [address] [address] [address] Ayden CamCholesterol in HDL [Mass/Vol]59 mg/bUIoaxya96-61IykKing'S Daughters Medical Center [place]Comment on above:Performed By: #### LIPA #### [facility] [address] [address] [address] Ayden CamCholesterol in LDL [Mass/Vol]34.0 mg/dLKettering Health TroyComment on above:Performed By: #### LIPA #### [facility] [address] [place] [address] Dr. Ayden Leroyesterfabi.total/Cholesterol in HDL [Mass ratio]2.0 {ratio} NormalKing'S Daughters Medical Center OhioComment on above:Performed By: #### LIPA #### [facility] [address] [place] [address] Dr. Ayden CamHDL NORMAL> or = 60 mg/dl - LOW CARDIOVASCULAR RISK <40 mg/dl - HIGH CARDIOVASCULAR RISKKettering Health TroyComment on above:Performed By: #### LIPA #### [facility] [address] [place] [address] Dr. Ayden CamLDL CALC NORMALSEE Twin City HospitalComment on above:Result Comment: <100 mg/dl OPTIMAL 100 - 129 mg/dl NEAR OR ABOVE OPTIMAL 130 - 159 mg/dl BORDERLINE HIGH 160 - 189 mg/dl HIGH >190 mg/dl VERY HIGH Performed By: #### LIPA #### [facility] [address] [address] [address] Ayden CamTriglyceride [Mass/Vol]115 mg/dLNormal<=150[facility] [place] Comment on above:Performed By: #### LIPA #### [facility] [address] [address] [address] Ayden CamVLDL CALC23.0 mg/dLNoChildren's Hospital for RehabilitationComment on above: Performed By: #### LIPA #### [facility] [address] [address] [address] Ayden CamVITAMIN D 25 OHon 66-60-3061IIZ D 25-OH89.3 ng/mLNShelby Memorial HospitalComment on above:Performed By: #### VITAD #### [facility] [address] [place] [address] Dr. Ayden EstradaT D RANGESSEE BELOWNoChildren's Hospital for RehabilitationComment on above: Result Comment: <20 ng/mL Vit D deficient 20 - <30 ng/mL Vit D insufficient 30 - 100 ng/mL Vit D sufficient >100 ng/mL Potential ToxicityPerformed By: #### VITAD #### [facility] [address] [place] [address] Dr. Ayden Farrell Visit (Cardiology)on 55-32-7510Eibykd-up visit Diagnoses/Problems Assessed Atherosclerosis of coronary artery of [place] heart without angina pectoris (414.01) (I25.10) History of coronary artery bypass graft (V45.81) (Z95.1) Ischemic cardiomyopathy (414.8) (I25.5) Hyperlipidemia (272.4) (E78.5) Essential hypertension, benign (401.1) (I10) Never a smoker Overweight with body mass index (BMI) of 26 to 26.9 in adult (278.02,V85.22) (E66.3,Z68.26) Paroxysmal SVT (supraventricular tachycardia) (427.0) (I47.1) Orders Atherosclerosis of coronary artery of [place] heart without angina pectoris, Essential hypertension, benign, Hyperlipidemia Basic Metabolic Panel; Status:Active - Retrospective Authorization; Requested for:[id number]; Lipid Panel; Status:Active - Retrospective Authorization; Requested for:[id number]; Overweight with body mass index (BMI) of 26 to 26.9 in adult Healthy Weight Tips; Status:Complete - Retrospective Authorization; Done: [id number] Some eating tips that can help you lose weight.; Status:Complete - Retrospective Authorization; Done: [id number] SocHx: Never a smoker Tobacco Use Screening; Status:Complete; Done: [id number] Patient Instructions Please bring all medicines, vitamins, [...] CHEST PAIN.CALL 911 IF PAIN PERSISTS. Nyamyc [id number] UNIT/GM External Powderapply topically to affected area [...] stools. Integumentary: no s (more content not included)...NormalUH TouchworksTobacco Screening.on 04-75-4942Mljyj depression screening assessmentJohn E. [facility] Heart-[place] 250 DO Work Phone: Fall risk assessmenta) No falls within the last year [facility] indidebtDade 250 DO Work Phone: Tobacco use status CPHSb) [facility] Dade 250 DO Work Phone: MRI Ankle w/o Lefton 73-11-7923IQK Ankle w/o Left HISTORY: Dog jumped on [...] and signed by Wilder Arango on 08/01/2022 1102NormalNortmountain vista medical centern [place] [facility] SpecialistTobacco Screening.on 02-63-5346Gwqmopw use status CPHSb) [facility] SparkIrvin 250 DO Work Phone: Vital Signs Date TimeVital SignValuePerforming KdupujbdrQxjgsrek30-12-9231 11:45-0400Body vswynb027 cmMatthew Carson RINALDI Work Phone: [facility] HospitalPcjuexymxd89-38-7447 11:45-0400Body mass index (BMI) [Ratio]30.82 kg/o4Wdbaqqm Carson PA Work Phone: [facility] HospitalWtovwctqfv68-35-9417 11:45-0400Body ugpqsh59.93 kgMatthesandi Carson PA Work Phone: [facility] HospitalOcwqipjprf71-98-5115 09:53-0500Body cm Celso Garibay DO Work Phone: [facility]12-06-2024 09:53-0500 Body mass index (BMI) [Ratio]30.11 kg/z3IzueduhCelso Cintrondon DO Work Phone: [phone] [place], [place] 6845712-06-2024 09:53-0500 Body npuclp59.11 kgWideshaun Garibay DO Work Phone: [phone] [place], [place] 6845712-06-2024 09:53-0500 Diastolic blood ptbmbfog76 mm[Hg]Celso Garibay DO Work Phone: [phone]12-06-2024 09:53-0500 Heart rate66 /minCelso Garibay DO Work Phone: [phone] [place], [place] 6845712-06-2024 09:53-0500 Systolic blood pmskjeyh652 mm[Hg]Celso Garibay DO Work Phone: [phone] [place], [place] 6845711-19-2024 01:03-0500 Diastolic blood knbjohki04 mm[Hg]Ziggy Grigsby MD Work Phone: [facility]11-19-2024 01:03-0500 Heart rate60 /Alfonso Grigsby MD Work Phone: [facility]11-19-2024 01:03-0500 Respiratory rate20 /Alfonso Grigsby MD Work Phone: [facility]11-19-2024 01:03-0500 SaO2% (BldA) [Mass fraction]96 %Ziggy Grigsby MD Work Phone: [facility]11-19-2024 01:03-0500 Systolic blood rwjiivhp716 mm[Hg]Ziggy Grigsby MD Work Phone: [facility]11-18-2024 20:55-0500 Body hamgia494.02 cmZiggy Grigsby MD Work Phone: [facility]11-18-2024 20:55-0500 Body hghjmacvpcn42.4 [degF]Ziggy Grigsby MD Work Phone: [facility]11-18-2024 20:55-0500 Body vlyuni37.5 kgZiggy Grigsby MD Work Phone: [phone]11-13-2024 12:21-0500 Body rgaewg747 cmWideshaun Cintrondon DO Work Phone: [phone])838-[address] [place], [place] 6845711-13-2024 12:21-0500 Body mass index (BMI) [Ratio]30.47 kg/v3Bbhwste Phoenix DO Work Phone: [phone] [place], [place] 6845711-13-2024 12:21-0500 Body idgauz78.02 kgWideshaun Cintrondon DO Work Phone: [phone] [place], [place] 6845711-13-2024 12:21-0500 Diastolic blood czuegeim85 mm[Hg]Celso Cintrondon DO Work Phone: 1([phone])476-[address] [place], [place] 6845711-13-2024 12:21-0500 Heart rate76 /minWianilelias Phoenix DO Work Phone: [phone])411-[address] [place], [place] 6845711-13-2024 12:21-0500 Systolic blood vweafdan322 mm[Hg]Celso Phoenix DO Work Phone: [phone])478-[address] [place], [place] 6845711-05-2024 11:08-0500 Blood Pressure LocationJENNIEFR MARTINO [facility]11-05-2024 11:08-0500Body opytdpdqzhm00.6 [degF]JENNIFER MARTINO [facility]11-05-2024 11:08-0500Diastolic blood xceqvlhp34 mm[Hg] [place] [facility]11-05-2024 11:08-0500Heart rate68 /minJENNIFER SALENA [facility]11-05-2024 11:08-0500Respiratory rate16 /minJENNIFER SALENA [facility]11-05-2024 11:08-0500Systolic blood pluwnsvh582 mm[Hg] [place] [facility] [facility]07-11-2024 15:08-0400Blood Pressure LocationJENNIFER SALENA [facility]07-11-2024 15:08-0400Diastolic blood phtnsyoo82 mm[Hg] SALENA [facility]07-11-2024 15:08-0400Heart rate75 /minJENNIFER SALENA [facility]07-11-2024 15:08-0400Respiratory rate16 /minJENNIFER SALENA [facility]07-11-2024 15:08-0400Systolic blood emtwmeko516 mm[Hg] SALENA [facility]05-31-2024 11:15-0400Body aphwzk[address] 02-29-2024 11:15-0400Body mass index (BMI) [Ratio]29.58 kg/f7Gemaf [address] [place], [place] 2952705-31-2024 11:15-0400Body gduwgq91.[address] [place], [place] 2952704-18-2024 16:03-0400Body cqurha580.3 cmStephanie Berger MD PhD Work Phone: [facility]04-18-2024 16:03-0400Body mass index (BMI) [Ratio]30.16 kg/u0PjkjfStephanie Berger MD PhD Work Phone: [facility]04-18-2024 16:03-0400Body qhppry23.47 kgStephanie Berger MD PhD Work Phone: [facility]11-14-2023 15:29-0500Body rkencc953.3 cmCelso Cintrondon DO Work Phone: [facility]11-14-2023 15:29-0500 Body mass index (BMI) [Ratio]28.07 kg/j7Hfpqxgndeshaun Cintrondon DO Work Phone: [facility]11-14-2023 15:29-0500 Body pcjeps73.03 kgWideshaun Phoenix DO Work Phone: [facility]11-14-2023 15:29-0500 Diastolic blood cnksfquz04 mm[Hg]Celso Garibay DO Work Phone: [facility]11-14-2023 15:29-0500 Heart rate56 /minWiisabellejaylen Cintrondon DO Work Phone: [facility]11-14-2023 15:29-0500 Systolic blood yrvvxtfp759 mm[Hg]Celso Garibay DO Work Phone: [facility]09-18-2023 15:15-0400 Diastolic blood mm[Hg]Gaby Tello DO Work Phone: [facility]09-18-2023 15:15-0400Heart rate70 /minCarkizzy Tello DO Work Phone: [employer] [facility] IDWDVJ11-26-3938 15:15-0400 Respiratory rate18 /minCarkizzy Tello DO Work Phone: [employer] [facility] ZEUYFY86-00-4045 15:15-9057IuJ5% (BldA) [Mass fraction]96 %Gaby Tello DO Work Phone: [employer] [facility]ITALOneMobVVRWHV28-35-7639 15:15-0400Systolic blood edbmjohn948 mm[Hg]Gaby Tello DO Work Phone: [facility] Emida [facility]ITALOneMobKJQBOT70-13-8107 14:36-0400Body keauknfkfac54 [degF]Gaby Tello DO Work Phone: [facility] Emida [facility]ITALOneMobUBRASB96-71-3007 13:30-0400Body cnrlky703 cmCarmen Deuce Tello DO Work Phone: [facility] Emida [facility]ITALOneMobJWIXZH48-41-1015 13:30-0400Body mass index (BMI) [Ratio]27.03 kg/b8QbkhlfGaby Tello DO Work Phone: [employer] [facility]ITALOneMobOWYLNQ37-85-8257 13:30-0400Body nywxmd18.22 kgGaby Tello DO Work Phone: [facility] Emida [facility]ITALOneMobOAKNRG88-15-3435 15:02-0500Diastolic blood nukiamym74 mm[Hg]MD Ziggy Grigsby Work Phone: [facility]02-02-2023 15:02-0500 Heart rate78 /min Ziggy Gordilloestefani Work Phone: [facility]02-02-2023 15:02-0500 Respiratory rate18 /min Ziggy Gordilloy Work Phone: [facility]02-02-2023 15:02-0500 SaO2% (BldA) [Mass fraction]100 %MD Ziggy Grigsby Work Phone: 1(042)590-[address] [place], [place] 7411702-02-2023 15:02-0500 Systolic blood mhctwjeh915 mm[Hg]MD Ziggy Grigsby Work Phone: 1(367)[address] [place], [place] 3655902-02-2023 13:20-0500 Body yubiwi507.02 cmMD Ziggy Grigsby Work Phone: 1(913)[address] [place], [place] 3655902-02-2023 13:20-0500 Body wdruxeilcee11.2 [degF]MD Ziggy Grigsby Work Phone: 1(552)[address] [place], [place] 3655902-02-2023 13:20-0500 Body .78 kgMD Ziggy Grigsby Work Phone: 1(074)[address] [place], [place] 3655902-01-2023 13:26-0500 Diastolic blood diznptlf32 mm[Hg]MD Ziggy Grigsby Work Phone: 1(896)[address] [place], [place] 3655902-01-2023 13:26-0500 Heart rate59 /minMD Ziggy Grigsby Work Phone: 1(341)[address] [place], [place] 3655902-01-2023 13:26-0500 Respiratory rate20 /minMD Ziggy Hoy Work Phone: 1(324)[address] [place], [place] 3655902-01-2023 13:26-0500 SaO2% (BldA) [Mass fraction]99 %MD Ziggy Grigsby Work Phone: 1(892)[address] [place], [place] 3655902-01-2023 13:26-0500 Systolic blood jrjheeos146 mm[Hg]MD Ziggy Grigsby Work Phone: 1(913)[address] [place], [place] 3655902-01-2023 10:53-0500 Body nzxkun467.02 cmMD Ziggy Grigsby Work Phone: 1(320)[address] [place], [place] 3655902-01-2023 10:53-0500 Body xsdcmedsbdz20.7 [degF]MD Ziggy Grigsby Work Phone: 1(165)[address] [place], [place] 3655902-01-2023 10:53-0500 Body jhaoxd71.68 kgMD Ziggy Grigsby Work Phone: 1(768)[address] [place], [place] 3655901-24-2023 15:45-0500 Body .38 cmImad Asaad Other [employer] Other 01-24-2023 15:45-0500Body mass index (BMI) [Ratio] 24.28 kg/m2Imad Asaad Other [employer] Other 01-24-2023 15:45-0500Body xbzjac34.69 kgImad Asaad Other [employer] Other 01-24-2023 15:45-0500Diastolic blood vliczbfd63 mm[Hg] Imad Asaad Other [employer] Other 01-24-2023 15:45-0500Systolic blood pufyqlun039 mm[Hg] Imad Asaad Other [employer] Other 12-20-2022 00:00-046766 1Douglas M Hoy Work Phone: 1([phone]-Ofayg [place] [facility] [address] DO Work Phone: Comment on above:CHAUX67-79-9126 15:23-0500Body height 160.02 cmDouglas M Hoy Work Phone: [phone]-Ejpme [place] [facility] [address] DO Work Phone: 1(941) 165-693711-15-2022 15:23-0500Body mass index (BMI) [Ratio] 26.22 kg/t8Tpzcxhs M Hoy Work Phone: [phone]-Pvtvk [place] [facility] [address] DO Work Phone: 1(990) 757-230911-15-2022 15:23-0500Body surface area Derived from formula1.7 z7Vsuxzfi M Hoy Work Phone: [phone]-Tsfcs [place] [facility] [address] DO Work Phone: 1(902) 181-170811-15-2022 15:23-0500Body cxzfxy73.13 kgDouglas M Hoy Work Phone: [phone]-Pcupn [facility] DO Work Phone: 1(855) 354-622411-15-2022 15:23-0500Diastolic blood mm[Hg] Ziggy M Hoy Work Phone: [phone]-Ymdau [facility] DO Work Phone: 1(995) 142-861611-15-2022 15:23-0500Heart rate80 /minDouglas M Hoy Work Phone: 1([phone])[phone]-Cjdnq [facility] DO Work Phone: 1(757) 555-646111-15-2022 15:23-0500Systolic blood dgdjxojm962 mm[Hg] Ziggy M Hoy Work Phone: [phone]-Xjrfy [facility] DO Work Phone: 1(821) 858-145209-02-2022 08:12-0400Blood Pressure LocationPatrick Anctu [facility]09-02-2022 08:12-0400Diastolic blood duoteych53 mm[Hg]Santiago Anctu [facility]09-02-2022 08:12-0400Heart rate60 /minPatrick CARRILLO [facility]09-02-2022 08:12-0400Respiratory rate16 /minPatrick CARRILLO [facility]09-02-2022 08:12-0400Systolic blood zaaiakpg609 mm[Hg]Santiago Anctu [facility]11-17-2021 09:47-0500Body mdryxv608.02 cmDouglas M Hoy Work Phone: [phone]-Wndvp [facility] DO Work Phone: 1(461) 262-970311-17-2021 09:47-0500Body mass index (BMI) [Ratio] 25.01 kg/o8Euvbrch M Hoy Work Phone: [phone]-Eifja [facility] DO Work Phone: 1(826) 342-913611-17-2021 09:47-0500Body surface area Derived from formula1.67 w2Wawppfi M Hoy Work Phone: [phone]-Dmbbm [facility] DO Work Phone: 1(779) 951-220111-17-2021 09:47-0500Body subkii81.05 kgDodonn Clements Hoy Work Phone: 1(135)[phone]-Fcfyk [facility] DO Work Phone: 1(344) 695-823211-17-2021 09:47-0500Diastolic blood jxpanpbx42 mm[Hg] Ziggy Clements Hoy Work Phone: [phone]-Yeimi [facility] DO Work Phone: 1(915) 798-585211-17-2021 09:47-0500Heart rate72 /minDouglas Elias Hoy Work Phone: [phone]-Qlige [facility] DO Work Phone: 1(812) 659-532011-17-2021 09:47-0500Systolic blood mm[Hg] Ziggy Grigsby Work Phone: [phone]-Mkjij [facility] DO Work Phone: Encounters Encounter DateEncounter TypeCare ProviderFacilityStart: 06-23-2025 End: 03-76-1215Zzavhp flowsheetJr. Bridgett Sinha DO Work Phone: [facility]Start: 06-23-2025 End: 69-19-7591Xafhtg flowsheetJr. Bridgett Sinha DO Work Phone: [facility]icsStart: 06-23-2025 End: 21-60-0280ywuzkhxslgFJ., BRIDGETT Jones AvailableStart: 06-23-2025 End: 32-74-5586Zwtqiy outpatient visit 15 minutesJr. Bridgett Sinha DO Work Phone: [facility] OrthopaedicsComment on above:Tendonitis of wrist, right; Right wrist painStart: 06-16-2025 End: 30-40-0758szpxivxnnmQJ., BRIDGETT Jones AvailableStart: 06-02-2025 End: 22-27-0867Isjznw flowsheetJr. Bridgett Sinha DO Work Phone: [facility]icsStart: 06-02-2025 End: 39-85-3829Thomzi flowsheetJr. Bridgett Sinha DO Work Phone: [facility]icsStart: 06-02-2025 End: 20-60-3215Znanyb outpatient visit 15 minutesJr. Bridgett Sinha DO Work Phone: [facility] OrthopaedicsComment on above:Chronic pain of right wristStart: 06-02-2025 End: 80-70-2876tokejvgluzUJ., BRIDGETT Jones AvailableStart: 05-27-2025 End: 91-45-2230Sxtbnpx encounter procedureRae Louie MD Work Phone: [facility] 111Comment on above:Numbness (Primary Dx); Paresthesias; Carpal tunnel syndrome, leftStart: 05-27-2025 End: 37-83-2531aogxmfnylgPQRG D BEJNot AvailableStart: 05-15-2025 End: 49-67-1277Pngtlp flowsAlfonzo RINALDI Work Phone: [facility]opaedicsStart: 05-15-2025 End: 45-38-6129Udekmo flowsAlfonzo RINALDI Work Phone: [facility]opaedicsStart: 05-15-2025 End: 53-42-3405rkalapopsvQWWNORR J MEYERNot AvailableStart: 05-15-2025 End: 92-97-5334Yypdqb outpatient visit 15 minutesRaji RINALDI Work Phone: [facility] OrthopaedicsComment on above:Right wrist pain (Primary Dx); Arm weakness; Numbness; Arm pain, right; Ulnar neuropathy of right upper extremityStart: 05-08-2025 End: 74-46-3052ssazkhdcmhIVWSt. Mary's Medical Center, [place] Campustart: 01-30-2025 End: 26-97-2792ykmrbkjicsSLJKettering Health Miamisburgtart: 01-17-2025 End: 92-03-5603vwtrvazgqrAGFTrumbull Regional Medical Centertart: 01-09-2025 End: 81-32-3164wcgjxebjtbYJMKettering Health Miamisburgtart: 12-31-2024 End: 29-62-3351eugkbnpjmrBAWKettering Health Miamisburgtart: 12-12-2024 End: 38-15-3446ygygvdmurxQKSKettering Health Miamisburgtart: 11-26-2024 End: 61-48-2921Cemnticielo RINALDI Work Phone: [facility] ORTHOPAEDICSStart: 11-26-2024 End: 51-58-2469Gkvapecielo RINALDI Work Phone: [facility] ORTHOPAEDICSStart: 11-26-2024 End: 21-99-3843Yurqsg outpatient visit 15 minutesRaji RINALDI Work Phone: noms ORTHOPAEDICSComment on above:Acute pain of right wrist (Primary Dx); Tendonitis of wrist, rightStart: 11-26-2024 End: 07-32-4091gylrdhpcilUKUOKZF J MEYERNot AvailableStart: 10-11-2024 End: 88-02-8897cjuhfvbhjfASTWT C [facility] Hospitaltart: 09-05-2024 End: 52-15-1450ujrxobemjuWNNBEJSCity of Hope, [place] AmbulatoryStart: 09-05-2024 End: 46-94-6505Itlzauthuvwi care manage srvc 14 day dischargeCelso Garibay DO Work Phone: uh [facility] HospitalComment on above:Atherosclerosis of coronary artery bypass graft of [place] heart without angina pectoris; S/P PTCA (percutaneous transluminal coronary angioplasty); History of coronary artery bypass graft; Ischemic cardiomyopathy; Essential hypertension; Mixed hyperlipidemia; BMI 30.0-30.9,adult; Statin intoleranceStart: 08-20-2024 End: 85-32-6818Tzmwbdfxxa and management of inpatientSmatias Arroyo Facility:[facility] Hospitaltart: 54-05-7605Pgzpionbjj and management of inpatientZiggy Grigsby MD Work Phone: [facility] Work Phone: Start: 87-02-4021ahegufklwpp encounterZiggy Grigsby MD Work Phone: [facility] Work Phone: Start: 08-13-2024 End: 94-96-9106ldbfejgqgsLACYSUWCity of Hope, [place] AmbulatoryStart: 08-13-2024 End: 28-73-3363Ylscal outpatient visit 25 minutesCelso Garibay DO Work Phone: uh [facility] HospitalCompaul [facility] on above:Atherosclerosis of coronary artery of [place] heart without angina pectoris, unspecified vessel or lesion type; History of coronary artery bypass graft; Essential hypertension, benign; Hyperlipidemia, unspecified hyperlipidemia type; Acute pancreatitis, unspecified complication status, unspecified pancreatitis type ([facility])Start: 08-05-2024 End: 81-64-7102cqabdtzjtvZR-C JENNIFER E PERRYFacility:ROMELIA BellevueStart: 08-05-2024 End: 44-68-3285Ebcfsgz encounter procedureJENNIFER MARTINO [facility] start: 04-10-2024 End: 71-37-2260ehuuucttxeMV-C JENNIFER López PERRYFacility:EU ueStart: 04-10-2024 End: 56-33-8884Gccoxod encounter procedureJENNIFER E SALENA [facility] start: 03-11-2024 End: 15-89-5041kegiqrnuvfZZAmy López PERRYFacility:EU ueStart: 03-11-2024 End: 41-22-6998Smprvac encounter procedureJENNIFER E SALENA [facility] start: 03-07-2024 End: 77-16-7871Ebgvwfxcnl and management of inpatientJOHN A JANESProMedica Smyth HospitalStart: 03-06-2024 End: 26-45-7804Rgjjvdcnvu and management of inpatientYASEEN S ALASTALProMedica Smyth HospitalStart: 03-06-2024 End: 75-12-3254Nvvdpezcvg and management of inpatientYASEEN S ALASTALProMedica Smyth HospitalStart: 02-29-2024 End: 48-37-0819Seceoudeyb and management of inpatientDOUGLAS M HOYProMedica Smyth HospitalStart: 02-29-2024 End: 03-03-3614Rfdhwcvun to establishmentMetro Pat Phone Call Provider 4 [facility] On Executive Los AngeleswayStart: 02-14-2024 End: 39-82-9523Sbdtwx Avani Berger MD PhD Work Phone: [facility] ThroatComment on above:Xerostomia (Primary Dx)Start: 01-17-2024 End: 11-69-9912uhqlujtncbGNJEG M WILLIAMSMercer County Community Hospitalarnaldo [facility] Ambulatory PPGStart: 01-17-2024 End: 59-81-8364Mkndog outpatient visit 15 minutesStephanie Berger MD PhD Work Phone: [facility] ThroatComment on above:Dry nose (Primary Dx); Xerostomia; Allergic rhinitis, unspecified seasonality, unspecified triggerStart: 08-14-2023 End: 01-10-6884Lezefz outpatient visit 15 minutesCelso Garibay DO Work Phone: [facility] HospitalComment on above:Atherosclerosis of coronary artery of [place] heart without angina pectoris, unspecified vessel or lesion type; History of coronary artery bypass graft; Ischemic cardiomyopathy; Essential hypertension, benignStart: 06-18-2023 End: 49-43-0112zgkkckjyatYQDFWFGABY [facility] Hospitaltart: 06-18-2023 End: 29-59-6563Vrbpjlhprg hospital visit by physicianGaby Tello DO Work Phone: mthz ORComment on above:Post-menopausal bleeding; Inclusion cystStart: 60-55-3604Hi RenewalZiggy Grigsby Work Phone: [phone]-Wgvff [facility] DO Work Phone: Start: 56-48-0475Jcokuoo encounter procedureZiggy Elias Seb Work Phone: [phone]-Auuhg [facility] DO Work Phone: Start: 74-69-4714vrtrqbkshwPVWHKCL M HOYMpraful [facility] Centertart: 12-12-2022 End: 07-56-7203swdkkhyeteFO Ziggy Clements Duyestefani Work Phone: [facility] Work Phone: Start: 12-12-2022 End: 26-27-7167Aygbpbw encounter procedure Ziggy Seb Work Phone: [facility] Work Phone: Start: 11-20-2022 End: 59-57-9628hzvpytkzpoCumy Asaad Other [place] [facility] Other Start: 13-05-0761Iqxmppkxr encounterImad AsaadFPG GastroenterologyStart: 11-10-2022 End: 58-08-8583Bihrqyr encounter procedureMD Ziggy Hoy Work Phone: [facility] [place] Work Phone: Start: 11-02-2022 End: 90-27-0664Kuslbleub to same day surgery centerMD Ziggy Hoy Work Phone: [facility] Work Phone: Start: 11-02-2022 End: 78-72-9024nseonrclkxAV Ziggy Clements Hoy Work Phone: [facility] Work Phone: Start: 90-79-6727Fbmqapnrk encounterImad AsaadFPG GastroenterologyStart: 11-01-2022 End: 49-24-7846Pmntiewft to same day surgery centerMD Ziggy Hoy Work Phone: [facility] Work Phone: Start: 11-01-2022 End: 50-94-0935onuuckyzswDP Ziggy Clements Hoy Work Phone: [facility] Work Phone: Start: 10-24-2022 End: 43-07-7204pssltwjxpsGxjr Asaad Other [place] [facility] Other Start: 81-20-6854GTSX visit new patientImad AsaadFPG GastroenterologyStart: 10-16-2022 End: 21-90-8007uoraifmdjfJR ZIGGY HOYFacility:S5Grqao: 10-09-2022 End: 76-64-0386mnssxnacalRB ZIGGY HOYFacility:S3Psbut: 82-08-3364Sa Renewal Ziggy M Hoy Work Phone: [phone]-Ahiha [facility] DO Work Phone: Start: 10-04-2022 End: 61-50-3266dwawytvhpcJK ZIGGY HOYFacility:H9Nqejf: 09-19-2022 End: 73-77-5320nnagvaoyfpBU DOCTOR MISCFacility:I7Irlwn: 62-10-2185Fabsru outpatient visit 15 minutesDeaconcholo Clements Hoestefani Work Phone: [phone]-Xevlp [facility] DO Work Phone: Start: 00-59-6843Sfdqxcd encounter procedureZiggy Clmeents Seb Work Phone: [phone]-Ypimq [facility] DO Work Phone: Start: 06-02-2022 End: 40-17-3665Hspavmy encounter procedureSantiago CARRILLO [facility] start: 00-26-7396Qa RenewalDeaconcholo Clements Hoestefani Work Phone: [phone]-Vzauq [facility] DO Work Phone: Start: 02-07-2022 End: 83-55-5052Mwjvoml encounter Evie Grigsby MD Work Phone: [facility] LaboratoryStart: 02-07-2022 End: 22-44-7772Wiiduwfcax hospital visit by Lea Grigsby MD Work Phone: SQYA LaboratoryComment on above:Women's annual routine gynecological examinationStart: 48-28-7707As RenewalDeaconcholo Clements Hoestefani Work Phone: [phone]-Qolny [facility] DO Work Phone: Start: 60-66-6118Wppsob outpatient visit 15 minutes Ziggy M Hoy Work Phone: [phone]-Qbezz [facility] DO Work Phone: Start: 08-19-2019 End: 76-53-9986Yctspjsdfn hospital visit by physicianZiggy [facility] Comment on above:Well female exam with routine gynecological examStart: 32-65-7345MwgawpsykdMTXOPLNB UNKNOWNFacility:1532Start: 25-13-6009Uxxkxipvfl PROVIDER UNKNOWNFacility:1532Start: 66-04-5399KxecuyagfuPzsskhgv:9507 Procedures DateProcedureProcedure DetailPerforming ClinicianStart: 28-31-9681Bmltn wrist 2 viewsMattmalik RINALDI Work Phone: Start: 71-62-5708Lwygba-up visitFollow-upALI NAWRAS Start: 43-04-2708Xskdp wrist 2 viewsMatthortenciaw Ronny RINALDI Work Phone: Start: 85-39-6105Juzoz chest X-rayZiggy Grigsby MD Work Phone: Start: 56-94-9362Nuuimzfoppmcl flexible transoral ultrasound examJENNIFER SALENA Start: 95-67-2264CeukhkxyyufRmwxsmi Phoenix DO Work Phone: Start: 85-01-0380Kycamjk of coronary artery bypass graftingHistory of coronary artery bypass graftWilliam Phoenix DO Work Phone: Start: 90-57-5322Gcdbowawqo elastography of liverMD Ziggy Hoy Work Phone: Start: 00-04-8946Ltuyqzda resonance cholangiopancreatographyMD Ziggy Hoy Work Phone: Start: 11-02-2022 End: 63-74-7877CzewtctenvfUM Ziggy Hoy Work Phone: [phone]-art: 00-96-2192DvkuatyhyaeKV Ziggy Hoy Work Phone: Start: 04-69-7094PpgxmbhrvhjRtiegdw Phoenix DO Work Phone: Start: 12-68-2224Tbjugipcogr observation [Identifier] in Cervix by Cyto stainGaby Tello DO Work Phone: Start: 40-27-4460Ivuuqwpu of ganglion cystPatrick LORENA Start: 95-31-4865Nrqcktwkzyt observation [Identifier] in Cervix by Cyto stainZiggy Grigsby MD Work Phone: Start: 44-95-2969Lmotzzymtho removal of ureteric stent JENNIFER MARTINO Start: 09-13-2017H/O: surgeryS/P nasal septoplastyStephanie Berger MD PhD Work Phone: AppendectomyDouglas M Duyy Work Phone: AppendectomyPatrick CARRILLO Bypass of stomachPatrick CARRILLO Cataract surgeryDouglas M Seb Work Phone: CholecystectomyDouglas M Duyy Work Phone: Coronary artery bypass graftDouglas M Duyy Work Phone: Coronary artery bypass graft operation plannedPatrick CARRILLO Decompression of median nerveDouglas M Seb Work Phone: Esophagogastrostomy, antesternal or antethoracic Ziggy M Seb Work Phone: History of coronary artery bypass graftingHistory of coronary artery bypass graftDouglas M Hoy Work Phone: History of coronary artery bypass graftingHistory of coronary artery bypass graftWilliam S Phoenix DO Work Phone: History of coronary artery bypass graftingHistory of coronary artery bypass graftWilliam S Phoenix DO Work Phone: History of coronary artery bypass graftingHistory of coronary artery bypass graftWilliam S Phoenix DO Work Phone: Kidney operationDouglas M Duyy Work Phone: Operation on noseDouglas M Hoy Work Phone: Peripheral neuroplastyZiggy Grigsby Work Phone: Repair of inguinal herniaPatrick CARRILLO Total colonoscopyDodonn Grigsby Work Phone: Plan of Treatment DateCare ActivityDetailAuthorStart: 42-41-8064Wasmrhgqv for malignant neoplasm of colonOhioHealth Shelby HospitalStart: 91-71-0725Agjofqops for malignant neoplasm of cervixPAGE MEMORIAL HOSPITALStart: 08-18-2025 End: 93-12-2072Itocwjt encounter ogsxejtmu22/18/2025 11:20 AM EST Office Visit [facility] [address] [facility] [address] [place] [address] Celso Garibay DO [address] [place] [address] [facility]Start: 08-04-2025 End: 16-84-6426Znbbgvr encounter lauxzyabq45/04/2025 10:45 AM EST Office Visit [facility] [address] [place] [address] Jr. Bridgett Sinha, DO [address] [facility] [address] [place] [address] [facility]opaedicsStart: 08-03-2025 End: 93-00-8851Btigeai aminotransferase [Enzymatic activity/volume] in Serum or Plasma by With P-5'-PAlanine Aminotransferase Lab Routine Hyperlipidemia, unspecified hyperlipidemia type Expected: 08/03/2025 (Approximate), Expires: 08/13/2025[facility] Work Phone: Comment on above:Expected: 08/03/2025 (Approximate), Expires: 08/13/2025Start: 08-03-2025 End: 44-70-0217Zobvvures aminotransferase [Enzymatic activity/volume] in Serum or Plasma by With P-5'-PAspartate Aminotransferase Lab Routine Hyperlipidemia, unspecified hyperlipidemia type Expected: 08/03/2025 (Approximate), Expires: 08/13/2025[facility] Work Phone: Comment on above:Expected: 08/03/2025 (Approximate), Expires: 08/13/2025Start: 08-03-2025 End: 04-78-4465Rcejl 1996 panel - Serum or PlasmaLipid Panel Lab Routine Hyperlipidemia, unspecified hyperlipidemia type Expected: 08/03/2025 (Approx imate), Expires: 08/13/2025[facility] Work Phone: Comment on above:Expected: 08/03/2025 (Approximate), Expires: 08/13/2025Start: 07-14-2025 End: 22-12-7492ahfmfiivoi75/14/2025 5:00 PM EDT Evaluation [facility] [address] [place] [address] Kayode Francois, PT [address] [place] [address] [facility]: 06-23-2025 End: 44-34-0227Syxceha encounter goyouvpbd93/23/2025 11:00 AM EDT Office Visit [facility] [address] [place] [id number] Jr. Bridgett Sinha C, DO [address] [address] [facility]: 06-02-2025 End: [id number] Wrist - right WO contrastMR wrist right wo IV contrast Imaging Routine Chronic pain of right wrist Expected: 06/02/2025 (Approximate), Expires: 06/02/2026[facility] Work Phone: Comment on above:Expected: 06/02/2025 (Approximate), Expires: 06/02/2026Start: 06-02-2025 End: [id number] encounter procedureNOGrand [facility] OrthopaedicsComment on above:ArrivedStart: 33-63-4558Trnuiwatn vaccinationInfluenza Vaccine (#1)[facility] HealthcareStart: 05-15-2025 End: 23-85-8221ZPW AND NERVE CONDUCTION STUDYEMG AND NERVE CONDUCTION STUDY Neurology Routine Arm weakness Numbness Arm pain, right Ulnar neuropathy of right upper extremity Expected: 05/15/2025 (Approximate), Expires: 05/15/2026 [facility] Healthcare Work Phone: Comment on above:Expected: 05/15/2025 (Approximate), Expires: 05/15/2026Start: 03-17-2025 End: 67-98-8472Jjoqsik encounter klmuphgmm75/17/2025 2:40 PM EDT Office Visit [facility] [address] [facility] [address] [place] [address] Celso Garibay DO [address] [facility] [address], [address] [place] [address] [facility]: 71-36-1346Buogb BMI ScreeningAdult BMI ScreeningProMercy Health St. Anne Hospitaltart: 58-44-8887Aafaplpib for malignant neoplasm of cervixBON TUSCARAWAS HOSPITALStart: 19-83-1568Rpczu BMI Screening Adult BMI ScreeningUNC Healthtart: 61-41-7682Swjjdzy Screening Tobacco ScreeningUNC Healthtart: 01-15-2025 End: 67-59-0787Vsvddoe encounter ahppicatj25/17/2025 4:00 PM EDT Office Visit [facility] [address] [place] [address] Stephanie Berger MD PhD [address] [address] [facility] Start: 11-26-2024 End: 32-74-5365Enrfqnc encounter ptiyljhhm16/26/2025 1:00 PM EST Office Visit [facility] [address] [place] [address] Raji Byrd PA [address] [facility] [address] [place] [address] Acute pain of right wrist (Primary Dx)[facility] Comment on above:Acute pain of right wrist (Primary Dx)Start: 08-19-2024 Screening for malignant neoplasm of cervixMercy Health Springfield Regional Medical CenterStart: 83-30-1465ZqepsuanvAshtabula General Hospitaltart: 65-24-7353Yzdttdgy to cardiologistAshtabula General Hospitaltart: 63-59-4834VszeyekjbAshtabula General Hospitaltart: 51-30-7553Tqjpfadn admissionAshtabula General Hospitaltart: 08-15-2024 Screening for malignant neoplasm of breastMammogramOhioHealth Shelby HospitalStart: 08-13-2024 End: 63-96-6940Chayrtl encounter uurjnpjis02/13/2024 11:30 AM EST Office Visit [facility] [address] [facility] [address] [place] [address] Celso Garibay DO [address] [facility] [address] [place] [address] [facility]: 26-59-3557NYK High Risk: (Elderly (60+) or Population) (1 - Risk 60-74 years 1-dose series)RSV High Risk: (Elderly (60+) or Population) (1 - Risk 60-74 years 1-dose series) [facility] HospitalStart: 79-39-5228JNQYT-19 Vaccine ( season)COVID-19 Vaccine ( season)[facility] Start: 59-36-2075Uscqslxdy vaccinationInfluenza VaccineProPromedica Flower Hospitalca Health System Start: 03-06-2024 End: 80-02-6331Fmkjeiwkm to same day surgery jwpmih9503/06/2024 11:30 AM EDT - 03/06/2024 12:45 PM EDT Surgery [facility] [address] [place] [address] Danielle Magallon MD [address] [place] [address] ESOPHAGOGASTRODUODENOSCOPY DIAGNOSTIC [08496 (CPT )][facility] EndoscopyComment on above:ESOPHAGOGASTRODUODENOSCOPY DIAGNOSTIC [15396 (CPT )] Start: 03-06-2024 End: 09-42-8570Ajzcclqzobquxavtouwqoleyxq transoral diagnostic ESOPHAGOGASTRODUODENOSCOPY DIAGNOSTIC ACUTE RECURRING PANCREATITIS, EPIGASTRIC PAIN 03/06/2024 11:30 AM EDTTOLEDO ENDOSCOPYStart: 03-06-2024 End: 20-92-6530Wljxsesyajsat flexible transoral ultrasound examENDOSCOPIC ULTRASOUND UPPER ACUTE RECURRING PANCREATITIS, EPIGASTRIC PAIN 03/06/2024 11:30 AM EDTTOLEDO ENDOSCOPYStart: 72-77-8498Qwbfhbakgm hospital visit by physician 03/06/2024 11:30 AM EDT Hospital Encounter [facility] [address] [facility] [place] [address] Danielle Magallon MD [address] [place] [address] [facility] EndoscopyStart: 30-58-6042Nqgyxaanrw Screen Depression ScreenPAGE MEMORIAL HOSPITALStart: 02-12-2024 End: 61-74-6118Gxqhhkg aminotransferase [Enzymatic activity/volume] in Serum or Plasma by With P-5'-PAlanine Aminotransferase Lab Routine History of coronary artery bypass graft Ischemic cardiomyopathy Expected: 02/12/2024 (Approximate), Expires: 08/14/2024[facility] Work Phone: Comment on above:Expected: 02/12/2024 (Approximate), Expires: 08/14/2024Start: 02-12-2024 End: 44-42-6977Pkwizdgjx aminotransferase [Enzymatic activity/volume] in Serum or Plasma by With P-5'-PAspartate Aminotransferase Lab Routine Atherosclerosis of coronary artery of [place] heart without angina pectoris, unspecified vessel or lesion type Ischemic cardiomyopathy Expected: 02/12/2024 (Approximate), Expires: 08/14/2024[facility] Work Phone: Comment on above:Expected: 02/12/2024 (Approximate), Expires: 08/14/2024Start: 02-12-2024 End: 09-54-2348Qvtbl 1996 panel - Serum or PlasmaLipid Panel Lab Routine Atherosclerosis of coronary artery of [place] heart without angina pectoris, unspecified vessel or lesion type Expected: 02/12/2024 (Approximate), Expires: 08/14/2024[facility] Service Area Work Phone: Comment on above:Expected: 02/12/2024 (Approximate), Expires: 08/14/2024Start: 90-10-2044DGE, Provider: Celso Garibay, Status: Pen, Time: 3:00 PMFUV, Provider: Celso Garibay, Status: Julio, Time: 3:00 PMMP-[facility] [address] DO Work Phone: Start: 31-87-3739Shfnkdxav for malignant neoplasm of breastBreast cancer screenMercy Health Springfield Regional Medical CenterStart: 16-03-4553Jrukpbmcw for malignant neoplasm of breastMammogramOhioHealth Shelby HospitalStart: 07-03-2023 End: 21-03-2086Vcuqiwd encounter pzqhxxcut69/03/2023 4:45 PM EDT Office Visit [facility] Part [facility] [address] [facility] [address] [place] [address] Gaby Phillips, [address] [place] [address] post-op BA 05/16[facility] of [facility] HospitalComment on above:post-op BA 8/16Start: 06-18-2023 End: 21-22-4051Hjxsslsvkwrw bx endometrium&/polypc w/wo d&cDILATATION AND CURETTAGE HYSTEROSCOPY Post-menopausal bleeding Inclusion cyst 06/18/2023 2:01 PM [facility] HospitalStart: 06-62-2492BLHLX-19 Vaccine ( season)COVID-19 Vaccine ( season)[facility] SystemStart: 02-13-2023 End: 94-28-4187Njcwmrd encounter /16/2023 Office Visit Obstetrics and Gynecology Gaby Phillips, DO [address] [facility] [place] [address] [facility] Hospitaltart: 71-05-3074LhjiaoambAshtabula General Hospitaltart: 78-72-1108NxipslscxAshtabula General Hospitaltart: 11-01-2022 [facility] Hospitaltart: 75-85-9615Miymrolqr for malignant neoplasm of cervixPap [facility] HospitalStart: 88-02-8355PDR, Provider: Celso Garibay, Status: Pen, Time: 3:00 PMFUV, Provider: Celso Garibay, Status: Pen, Time: 3:00 PMMunicipal Hospital and [facility] 250 DO Work Phone: Start: 93-04-3686Wmrrt panelLipidsMercy Health Springfield Regional Medical CenterStart: 28-00-0427KZRCR-19 Vaccine (4 - Pfizer series)COVID-19 Vaccine (4 - Pfizer series)SADI RODRIGUEZ [facility]OSPITALStart: 71-36-5897Smazsuqwe vaccinationFlu vaccine (#1)[facility], WAStart: 29-76-5506Xzdwmqvyheso Vaccine: Pediatrics (0 to 5 Years) and At-Risk Patients (6 to 64 Years) (2 - PCV)Pneumococcal Vaccine: Pediatrics (0 to 5 Years) and At-Risk Patients (6 to 64 Years) (2 - PCV) [facility] HospitalStart: 51-14-6823Wufleyqpfvgj Vaccine: Pediatrics (0 to 5 Years) and At-Risk Patients (6 to 64 Years) (2 of 2 - PCV) Pneumococcal Vaccine: Pediatrics (0 to 5 Years) and At-Risk Patients (6 to 64 Years) (2 of 2 - PCV)[facility]: 62-43-2623Rthsrx cancer screenBreast cancer screenVeterans Health Administration: 31-83-9463Rpuhj cancer screen colonoscopyColon cancer screen colonoscopyBuffalo [place], [place] Start: 06-47-7808Vzxbsffu Vaccine (1 of 2)Shingles Vaccine (1 of 2)[facility] Start: 00-12-0745FCH Vaccines (1 of 1 - Standard series)MMR Vaccines (1 of 1 - Standard series)[facility]: 16-31-3814Slyatprlm for malignant neoplasm of colonGreene Memorial Hospital: 53-82-4601Nivihitx screenDiabetes [facility]: 54-20-9026PIhC/Tdap/Td Vaccines (1 - Tdap)DTaP/Tdap/Td Vaccines (1 - Tdap)[facility]: 05-57-4189Zqzmansv cancer screenCervical cancer screenVeterans Health Administration: 1985 Screening for malignant neoplasm of cervixOhioHealth Shelby Hospital Start: 29-24-4482TUtX,Tdap and Td Vaccines (1 - Tdap)DTaP,Tdap and Td Vaccines (1 - Tdap)[facility] SystemStart: 19-94-1707XNrF/Tdap/Td vaccine (1 - Tdap)DTaP/Tdap/Td vaccine (1 - Tdap)[facility]: 33-07-7419Oqdlt BMI Follow Up PlanAdult BMI Follow Up PlanCleveland Clinic Mercy Hospital SystemStart: 1982 Diabetes mellitus screeningDiabeelyria memorial hospital ScreeningOhioHealth Shelby Hospital Start: 38-94-3847Eqegjknqm C [facility]: 35-04-4412ZPE screenHIV [facility]: 33-12-3538ZLX screeningHIV [facility] Start: 08-38-0405Zeoqslfxnj ScreenDepression ScreenGreene Memorial Hospital: 1976 Depression ScreeningDepression ScreeningProKettering Health Miamisburg SystemStart: 1975 DTaP/Tdap/Td vaccine (1 - Tdap)DTaP/Tdap/Td vaccine (1 - Tdap)[facility]: 93-97-3834Heesq panelLipidsBON [facility] Hospitalart: 1974 Lipid screenLipid screenAshtabula County Medical Centerart: 39-02-5682Wmfsczihw B vaccine (1 of 3 - 3-dose series)Hepatitis B vaccine (1 of 3 - 3-dose series)[facility] Hospitalart: 86-13-1422Kmvitwvyf B Vaccines (1 of 3 - 3-dose series) Hepatitis B Vaccines (1 of 3 - 3-dose series)[facility] Start: 39-56-9349Vtiasmlsq C screenHepatitis C screenAshtabula County Medical Centerart: 65-66-1564UWV screeningHIV ScreeningOhioHealth Shelby HospitalStart: 36-75-5479Eaznw panelLipid PanelOhioHealth Shelby HospitalStart: 59-75-7969Kdloqirqn for malignant neoplasm of colonUnCleveland Clinic Children's Hospital for RehabilitationStart: 75-40-0954Hzvhzv Adult PhysicalYearly Adult PhysicalUnCleveland Clinic Children's Hospital for RehabilitationActin smooth muscle IgG Ab [Units/volume] in Serum [facility] CenterAlpha 1 antitrypsin [Mass/volume] in Serum or PlasmaTrinity Health System Twin City Medical CenterAlpha 1 antitrypsin phenotyping [Identifier] in Serum or Plasma by ImmunofixationTrinity Health System Twin City Medical CenterCeruloplasmin [Mass/volume] in Serum or PlasmaTr[facility] Health [facility] Center End: 34-83-0235Chknivvabdtey procedure, preparation of smear, genital sourcePAP SMEAR Lab Routine Well female exam with routine gynecological exam 1 Occurrences starting 08/19/2019 until 08/19/2019[facility] ROMAComment on above:1 Occurrences starting 08/19/2019 until 08/19/2019 End: 32-56-2020Qyiuguxvqvsju procedure, preparation of smear, genital sourcePAP SMEAR Lab Routine Women's annual routine gynecological examination 1 Occurrences starting 02/07/2022 until 02/07/2022[facility] Ziffi Work Phone: comment on above:1 Occurrences starting 02/07/2022 until 02/07/2022Glucose measurement estimated from glycated hemoglobinTrinity Health System Twin City Medical CenterHepatitis A virus Ab [Presence] in Serum by Immunoassay [facility] CenterHepatitis B core antibody measurementTrinity Health System Twin City Medical CenterHepatitis B virus surface Ab [Presence] in SerumTrinity Health System Twin City Medical CenterHepatitis B virus surface Ag [Presence] in Serum or Plasma by ImmunoassayTrinity Health System Twin City Medical CenterHepatitis C virus IgG Ab [Presence] in Serum or Plasma by ImmunoassayTr[facility] Health [facility] Homogenous nuclear Ab pattern [Titer] in SerumTrinity Health System [facility] Medical Center IgG [Mass/volume] in Serum or PlasmaTrinity Health System [facility] Center End: 50-96-1065AVZABDXY PACU OXYGEN THERAPY PROTOCOLInitiate PACU Oxygen Therapy Protocol Respiratory Care Routine Continuous until discontinued starting 06/18/2023 Emida [facility]ITALMobPanel [facility] on above:Continuous until discontinued starting 06/18/2023Lipoprotein a [Moles/volume] in Serum or PlasmaTrinity Health System Twin City Medical CenterMitochondria M2 IgG Ab [Units/volume] in [facility] HospitalNuclear Ab [Titer] in [facility] HospitalOxygen therapy [Minimum Data Set]Initiate Oxygen Therapy Protocol Respiratory Care Routine As Needed until discontinued starting 06/18/2023 247 TechiesMercy Hospital Springfield on above:As Needed until discontinued starting 06/18/2023Oxygen therapy [Minimum Data Set]Initiate Oxygen Therapy Protocol Respiratory Care Routine As Needed until discontinued starting 06/18/2023 247 TechiesMercy Hospital Springfield on above:As Needed until discontinued starting 06/18/2023atient EducationHemorrhoids (DC)[facility] Work Phone: End: 22-27-2129Cwhzmrgqo, urine POCTPregnancy, urine POCT Point of Care Testing Routine One Time for 1 Occurrences starting 06/18/2023 until 06/18/2023 247 TechiesMercy Hospital [facility] on above:One Time for 1 Occurrences starting 06/18/2023 until 06/18/2023Surgical PathologySurgical Pathology Lab Routine Post-menopausal bleeding Inclusion cyst Release Upon Ordering for 1 Occurrences starting 06/18/2023 247 TechiesMercy Hospital Springfield on above:Release Upon Ordering for 1 Occurrences starting 06/18/2023[facility] Immunizations Immunization DateImmunizationNotesCare BtcgnjszIqrkazjb86-99-1029opwzmqlrr virus vaccine, unspecified formulationMalilli RINALDI Work Phone: [facility] HospitalQnrkjuxwmf79-84-9562vzdwtdmyl, unspecified formulationAMBERTANIA MARTINO [facility]09-05-2023influenza virus vaccine, unspecified formulationStephanie Berger MD PhD Work Phone: Medina HospitalEayjqh73-34-7668xirrgzeyq, injectable, quadrivalent, preservative freeDouglas M Hoy Work Phone: [phone]-TbokqMunicipal Hospital and [facility] 250 DO Work Phone: [phone] vaccine recombinantDouglas M Hoy Work Phone: [phone]-UrgvkMunicipal Hospital and [facility] 250 DO Work Phone: [phone]-DcwHJhxy COVID-19 Vacc 30 MCG/0.3ML Intramuscular SuspensionDouglas M Hoy Work Phone: [phone]-PycqpMunicipal Hospital and [facility] 250 DO Work Phone: [phone] virus vaccine, unspecified formulationDouglas M Hoy Work Phone: [phone]-PgvnoMunicipal Hospital and [facility] 250 DO Work Phone: [phone], injectable, Madin Renetta Canine Kidney, preservative free, quadrivalentDouglas M Hoy Work Phone: [phone]-KjfjsMunicipal Hospital and [facility] 250 DO Work Phone: [phone]-FzxGBqxu COVID-19 Vacc 30 MCG/0.3ML Intramuscular SuspensionDouglas M Hoy Work Phone: [phone]-GbxnyMunicipal Hospital and [facility] 250 DO Work Phone: [phone]-BiiXZrrd COVID-19 Vacc 30 MCG/0.3ML Intramuscular SuspensionDouglas M Hoy Work Phone: [facility] HospitalXfvxtc82-76-8009dltpbrkhx, injectable, quadrivalent, preservative freeDouglas M Hoy Work Phone: [phone]-CpikmMunicipal Hospital and [facility] 250 DO Work Phone: [phone], injectable, quadrivalent, preservative freeDouglas M Hoy Work Phone: [phone]-WkxhzMunicipal Hospital and [facility] 250 DO Work Phone: [phone], injectable, Madin Renetta Canine Kidney, preservative free, quadrivalentDouglas M Hoy Work Phone: [phone]-JltngAlan [place] [address] DO Work Phone: [phone]ks polysaccharide vaccine, 23 valentDouglas M Hoy Work Phone: [phone]-HeopqAlan [place] [address] DO Work Phone: [phone]g, seasonal, injectable, preservative freeDouglas M Hoy Work Phone: [phone]-FqnhbAlan [place] [address] DO Work Phone: [phone], seasonal, injectableDouglas M Hoy Work Phone: [phone]-SvusjMunicipal Hospital and [facility] 250 DO Work Phone: [phone] yqzkobtwu-R4W0-03, preservative-free, injectableDouglas M Hoy Work Phone: [phone]-WwgobAlan [place] [address] DO Work Phone: Payers DatePayer CategoryPayerPolicy [id number] Cross Blue ShieldBCBS Member Subscriber Plan / Payer (Effective 2022-Present) Name: Jose Alberto Saleem Relation to Subscriber: Self Name: Jose Alberto Saleem C PayerID: Not on file Type: Not on file Address: [address] [place] [id number]2-3737BiybOrchard Hospital 1.2.840.881037.1.13.647.2.7.9.259478.572721.37202-25-7454Ltnzpgl12-97-6724 UnknownBCBS HIGHMARK BCBS [place] xxxxxxxxxxxxxxx 2019-Present [address] [place] [address]svzarpkembezthq 1.2.840.548237.1.13.239.2.7.3.945389.43922-15-9459Pnohmtv8885962 2..1.021880.3.579.2.98663-13-5767Wxffizu7534413 2..1.089305.3.579.2.94909-45-3705Sjelmjj5891250 2..1.288733.3.579.2.82389-53-2518Ecbzsxi5987442 2..1.802565.3.579.2.09008-26-7800Eczzgpy9941495 2.0.1.532864.3.579.2.93694-84-9785Vtyjylr09348533 2.16.840.1.002795.3.579.2.78075-19-9543Cxqadme093559205 2.16.840.1.616797.3.579.2.29741-46-4596Puutglf86925823 2.16840.1.041929.3.579.2.132958-30-1792Oygcujz38397181 2.16840.1.336122.3.579.2.634928-71-3677Tvlfirj83460620 2.840.1.840734.3.579.2.157976-37-9970Ihkvgfa20954483 2.0.1.866020.3.579.2.723465-62-8301Gjkrvxt77323206 2.0.1.973227.3.579.2.108654-17-2595Ghdjooo54207513 2.840.1.281414.3.579.2.720818-79-9094Cjyqyoy77459485 2.840.1.828583.3.579.2.291292-35-9630Qtfjjpv35125689 2.0.1.935471.3.579.2.21877-67-1321Idwoxaf28730199 2.840.1.257078.3.579.2.62384-90-7861Ljgimru49840454 2.840.1.535778.3.579.2.44713-94-6711Iiztqix321440673 2.840.1.467133.3.579.2.907750-20-9997Stqvsxe071238172 2.840.1.486526.3.579.2.019951-30-4103Ityinlt936992176 2.16.840.1.793765.3.579.2.898261-83-4059Aitowpe502250989 2.16.840.1.719441.3.579.2.374035-32-9999Vosvzpy70515010 2.16.840.1.836877.3.579.2.333424-05-6767Rhqzpge83953067 2.16.840.1.683125.3.579.2.545445-85-7753Bipbyyk48651003 2.16.840.1.616202.3.579.2.742066-48-5504Ilsxjuk27397549 2.16.840.1.672888.3.579.2.559521-21-7041Nznbcwe87697139 2.16.840.1.341275.3.579.2.435310-70-1242Jrdifdm79554715 2.16.840.1.034029.3.579.2.125592-21-0640Ifulcmx0253830 2.16.840.1.536802.3.579.2.071111-39-2590Bgocrdi7635300 2.16.840.1.042860.3.579.2.590378-35-8284XrddvdcQUA87047739226339-11-1546Nensnnj LWB819P44820Wqgoqyy94637073 2.16.840.1.474901.3.579.2.531 Social History DateTypeDetailFacilityStart: 08-19-2019 End: 57-72-1378Yuyrdaq smoking status NHISNever smokerVeterans Health Administration: 08-19-2019 End: 05-64-2182Qgofzdk intakeEx-drinker (finding)[facility]: 43-60-1560Bxm Assigned At BirthNot on [facility]: 06-18-2023 End: 28-71-6816Ts alcohol useNo alcohol useMunicipal Hospital and [facility] 250 DO Work Phone: Start: 08-19-2019 End: 82-44-9853Bkebbcs use and exposureSmokeless tobacco non-userMercy Health [facility] Regional Medical Center Work Phone: start: 06-18-2023 End: 58-31-1988Slh Assigned At [facility] start: 57-18-5696Wle Assigned At [facility] CenterPatient Health Questionnaire 9 item (PHQ-9) total score [Reported]0BON SECROSALIE [facility]OS[facility]ITALStart: 08-14-2023 End: 08-34-1831Zitjull intakeLifetime non-drinker (finding)[facility] Work Phone: Start: 08-04-2023 End: 36-33-1289Lberltji to SARS-CoV-2 (event)Not sureOhioHealth Shelby HospitalStart: 59-54-8884EbkWjqipb (finding)[facility] Start: 01-17-2024 End: 24-44-6122Izopyczgj beverage intakeCurrent non-drinker of alcohol (finding) [employer] SystemStart: 16-33-8482Xnhtur identityIdentifies as female gender (finding)[facility] HealthcareNEGATED: Highlighted rowDenies Caffeine useDenies Caffeine useMunicipal Hospital and [facility] 250 DO Work Phone: Medical Equipment Procedure CodeEquipment CodeEquipment Original TextEquipment IdentifierDates Cystoscopy, with ureteral calculus manipulation and stent placementSTENT BARD MULTI 6FR 22-32CMFDAStart: 10-46-1211Ixibmqrvdj, with ureteral calculus manipulation and stent placementSTENT BARD MULTI 6FR 22-32CMFDAStart: 04-24-2018 Cystoscopy, with ureteral calculus manipulation and stent placementSTENT BARD MULTI 6FR 22-32CMFDAStart: 75-55-6310Frzudvvvpz, with ureteral calculus manipulation and stent placementSTENT BARD MULTI 6FR 22-32CMFDAStart: 04-24-2018 Tissue Alloderm Nonmesh 2x4cm - Sna - [id number]: 50-27-3425Gret Iol Ultrasert 17.0d - [id number] - [id number]: 47-06-6861Dyzps Implant Propel Mini - Sna - [id number]: 05-88-5537Lrftp Implant Propel - Sna - [id number]: 84-08-4426Dxwmeofoe [id number]_fri Start: 11-05-2018 Goals DatePatient GoalDesired Activity/State Functional Status GxluFjdmncarfoHipeorDtymsypu28-67-9861Lwiskgjhop StatusN/AExec[facility]07-11-2024Functional StatusN/AExec[facility]09-02-2022Functional StatusN/A [facility] Clinical Notes 06-02-2022 to 06-23-2025 Note Date & ZaycOtlkLeblspvn84-66-7336 History of Present illness Narrative* Jr. Bridgett Sinha, - 06/23/2025 11:00 AM EDT Images from [...] Encounter Procedures Ambulatory referral to Physical Therapy EVAL AND TX 3 TIMES PER WEEK FOR 6 WEEKS [...] for requiring urgent evaluation. documented in this encounterSullivan County Memorial HospitalMklchaxyji79-90-9262 History of Present illness Narrative* Jr. Bridgett Sinha DO - 06/02/2025 10:15 AM EDT Images from the original note [...] IV contrast MRI RT wrist w/o at [facility]. Orbits if needed. Please contact patient [...] for requiring urgent evaluation. documented in this encounterSullivan County Memorial HospitalQyxckbhkcm28-14-7266 History of Present illness Narrative* Rae Louie MD - 05/27/2025 3:15 PM EDT [facility] Patient: Jose Alberto Saleem [address], [address] , Sex: 1965, Male [place] [address] Height: 160 cm Ref Phys: Carson fax Electroneuromyogram (ENMG) Test Date: 2025-05-27 Patient [...] Amp Neg Dur (ms) Site1 Site2 Delta-0 (ms)Dist (cm) Davis (m/s) Norm Davis (m/s) Left [...] Doub=doublet; Fasc=fasciculation; FFE=full for effort; Fib=fibrillation; Myokym=myokymia; [place]=myotonic potential; N,0=normal; NR=no response; Polyph=polyphasia; Pos=positive [sharp] wave; RFU=rapidly firing units; Serr =serrated potential (2<phases<5); W&W=waxing and waning pattern INTERPRETATION: [...] or mononeuritis multiplex. Rae Louie M.D. Diplomate, [place] [employer] Psychiatry and Neurology (neurology, epilepsy, sleep medicine) Diplomate, [place] Board of Clinical Neurophysiology Diplomate, [place] Board of Preventive Medicine (clinical informatics) . documented in this encounterSullivan County Memorial HospitalWmtdeqlppz14-85-2018 NoteCalled patient today to let her know that [...] dosage depending on her snack, verifies understanding. [facility]08-15-2025 History of Present illness Narrative* GENTRY Kearney - 05/15/2025 11:30 AM EDT Images from the original note [...] TO ELBOW- SOME N/T- +STIFFNESS- DIFFICULTY GRIPPING/GRASPING- PTIS RT HAND DOMINANT PT IS ON PLAVIX; CARDIAC STENT Physical Exam General Appearance: Normal. Respiratory: No acute distress. Musculoskeletal: She is able to close her hand tightly in a fist. Symmetric graduate fellow strength noted. She has had prior carpal tunnel release and a revision surgery on the right hand with scars noted. Shehas no ulnar clawing, but there is slight weakness with abduction of the little finger in comparison to the contralateral hand and she has a mildly positive Froment sign with more subjective weaknessin the right than the left. Patient has a positive elbow flexion test and a positive Tinel sign at the cubital tunnel. Patient's Guyon canal is without irritation. Patient has no pain to the proximalhumerus or shoulder and no cervical radiculopathy. Skin: Warm and dry, no rash. Neurological: Normal. Orders Placed This Encounter Procedures XR wrist 1 or 2 views right Is the patient ?: No Reason for exam:: PAIN EMG AND NERVE CONDUCTION STUDY Standing Status: Future Expected Date: 05/15/2025 Expiration Date: 05/15/2026 Scheduling Instructions: Schedule with Dr. Louie ( HEMAL EMG resource).- EMG RT UE; PLEASE CALL [...] wrist and hand. However, there has been norecent trauma, and her current symptoms are more [...] requiring urgent evaluation. Visit was preformed using [employer]-remotely piloted vehicle controller speech recognition. documented in this encounterSullivan County Memorial [id number] NoteCalled patient to follow up with the referral [...] LATIA Rivera in the clinic and Dr. Watson.[facility]08-08-2025 Note Attestation signed by Chauncey Kimble MD at 05/08/2025 4:15 PM I personally saw the patient with the resident/fellow on the same day of service. I discussed the findings and therapeutic plan with the resident/fellow and with the patient. I agree with the documentation. [facility] Gastroenterology Follow-Up Patient Visit CHIEF COMPLAINT No chief complaint on file. HISTORY OF PRESENT ILLNESS: The patient is a 59-year-old female with a history of Romina-en-Y gastric bypass, cholecystectomy (), coronary artery bypass graft (CABG), gastroesophageal reflux [...] B12/Folate/Iron studies: Lab Results Component Value Date [id number] 1,862 (H) 02/27/2024 FOLATE 39.0 02/27/2024 IRON [...] TSH 2.02 02/27/2024 Pancreatiti (more content not included)...[facility] 01-09-2025 Note Attestation signed by Chauncey Kimble MD at 01/10/2025 8:31 AM I personally saw the patient with the resident/fellow on the same day of service. I discussed the findings and therapeutic plan with the resident/fellow and with the patient. I agree with the documentation. [facility] Gastroenterology New Patient Visit - History & Physical CHIEF COMPLAINT Chief Complaint Patient presents with Follow-up MRI follow up and seen at [facility] and in hospital for 1 day. Will [...] on for which she was admitted at [facility] and was management symptomatically. Patient reported [...] Plavix, baby aspirin, amlodipine, and a PRN [place] for pain. Of note, she has a [...] which were ordered at the outside facility ([facility]) and remain pending. A HIDA scan may also be pursued for further evaluation. She reports extreme fatigue post-hospitalization, interfering with her work and daily function. She prefers to avoid surgical intervention unless necessary and is open to advanced enteroscopy (e.g., device-assisted ERCP) at tertiary centers ([facility] or [facility]) as a less invasive alternative to laparoscopic-assisted ERCP. Plan includes requesting complete LFTs and pancreatic (more content not included)... [facility]03-14-2025 Note Attestation signed by Chaucney Kimble MD at 12/12/2024 3:31 PM I personally saw the patient with the resident/fellow on the same day of service. I discussed the findings and therapeutic plan with the resident/fellow and with the patient. I agree with the documentation. [facility] Gastroenterology New Patient Visit - History & [...] on for which she was admitted at [facility] and was management symptomatically. Patient reported [...] healthy appearing mucosa. This was traversed. The wgoqx-jc-elingeq limb was characterized by healthy appearing mucosa. [...] Angina pectoris Atherosclerosis of coronary artery of takotna heart without angina pectoris Cellulitis of right [...] Mother Katharyn Hyperlipidemia Father Munoz Hyperlipidemia Brother Gates Heart attack Brother Ray SOCIAL HISTORY: Social History Tobacco Use Smoking status: Never Smokeless tobacco: Never Vaping Use Vaping status: Never Used Substance Use Topics Alcohol use: Never Drug use: Never ALLERGIES: Baclofen; Latex, natural rubber; Penicillins; Sulfa (sulfonamide antibiotics); Rosuvastatin; Sulfamethoxazole-trimethoprim; Fenofibrate; Fenofibrate micronized; Fluvastatin; Levofloxacin; Phenazopyridine; Simvastatin; Trimethoprim; and Tobramycin Current Med (more content not included)...[facility] 11-26-2024 History of Present illness Narrative* GENTRY Kearney - 11/26/2024 1:00 PM EST Images from the original note were not included. HISTORY OF PRESENT ILLNESS: EST PT Jose Alberto Saleem is an 59 y.o. @ female. (NAVARRO W/JEWEL, NEW PROBLEM) RT WRIST - PT STATES A TOTE FELL OUT OF HER CLOSET AND LANDED ON HER ARM ~09/27/24 AND THEN HAD ANOTHER INCIDENT WHERE HER BROTHER WAS MOVING A BIG CHEST DOWN THE STAIRS ANDSHE WENT TO HELP AND FELT A POP 10/08/24- WENT TO [facility] [place]; SENT TO [facility] XRAYS XRAY RT WRIST TODAY EPIC 11/26/24 XRAY [facility] RT FOREARM 10/11/24 SPLINT DOING WELL [...] xray 10/11/24 (R) Forearm: no acute fracture [facility] Results - Imaging: - X-ray of [...] for requiring urgent evaluation. documented in this encounterSullivan County Memorial [id number] History of Present illness Narrative* Celso Garibay, DO - 09/05/2024 9:20 AM EST Subjective Jose Alberto Saleem is a 59 y.o. female Chief Complaint Follow-up 59-year-old female returns following acute coronary syndrome, with subsequent two-vessel intervention of the vein graft to the diagonal branch with long 3.5 x 38 mm Ray stent and takotna distal circumflex for in-stent restenosis with 3 x 18 mm Ennice stent. LV function is preserved. WHEELER-LAD remains patent, takotna right coronary vein graft right coronary is chronically occluded (known from the past) and collateralized via left coronary system, and vein graft to the OM 2 is also occluded chronically however takotna circumflex is intact. Patient is otherwise stable [...] Atherosclerosis of coronary artery bypass graft of takotna heart without angina pectoris 2. S/P PTCA (percutaneous transluminal coronary angioplasty) 3. History of coronary artery bypass graft 4. Ischemic cardiomyopathy 5. Essential hypertension 6. Mixed hyperlipidemia 7. BMI 30.0-30.9,adult 8. Statin intolerance Scribe Attestation By signing my name below, I, Kelsea Healy LPN attest that this documentation has been [...] exam, discussion and plan. documented in this [facility] Work Phone: 1(408) 178-601312-06-2024 Instructions* Patient Instructions* Jasmyne Salinas LPN - 09/05/2024 9:20 AM [...] instructions on exercise. May RTW 09/15/2024,no restrictions * Attachments The following attachments cannot be sent through Care Everywhere. * Heart Healthy Diet (Slovenian) documented in this [facility] Work Phone: 1(443) 911-142211-19-2024 Evaluation note* Diagnosis Onset Date Resolution Status Admit Date Atypical chest pain acuteNovember 2023 11:18pm [facility] Work Phone: 1(788) 806-745911-13-2024 History of Present illness Narrative* Celso Garibay, - 08/13/2024 11:30 AM EST Subjective Jose Alberto Saleem is a 59 y.o. female Chief Complaint Annual Exam 59-year-old female returns for annual visit, she just got back from [facility] from vacation last evening and is [...] Assessment/Plan 1. Atherosclerosis of coronary artery of takotna heart without angina pectoris, unspecified vessel or lesion type Follow Up In Cardiology 2. History of coronary artery bypass graft Follow Up In Cardiology 3. Essential hypertension, benign 4. Hyperlipidemia, unspecified hyperlipidemia type 5. Acute pancreatitis, unspecified complication status, unspecified pancreatitis type ([facility]) Scribe Attestation By signing my name below, I, Kelsea Zelaya LPN attest that this documentation has been [...] exam, discussion and plan. documented in this [facility] Work Phone: 1(679) 180-882011-13-2024 Instructions* Patient Instructions* Bettie Ugalde LPN - [...] Provided instructions on exercise. documented in this [facility] Work Phone: 1(477) 894-418311-05-2024 Hospital Discharge instructions Patient Education 08/05/2024 12:20:10 Kidney Stones, Sern-ax-Wvwy Kidney Stones Kidney stones are rock-like masses [...] Follow these instructions at home: Medicines Take ndst-sio-tdxecji and prescription medicines only as told by [...] provider. Document Revised: 05/11/2023 Document Reviewed: 05/11/2023 Bookya Patient Education 2023 [employer] Follow Up Care 06/06/2024 11:10:21 With:SALENA REDDY, JENNIFER López, URL Address: When:1 year [facility] 11-05-2024 NotePatient Education Urology Kidney Stones Kidney [...] these instructions at home: Medicines ??? Take gsrv-jaq-undvyfr and prescription medicines only as told by [...] provider. Document Revised: 05/11/2023 Document Reviewed: 05/11/2023 ElseNascentric Patient Education ? 2023 [employer] 04-10-2024 Hospital Discharge instructions Patient Education 04/10/2024 16:08:23 Kidney Stones, Gocr-vl-Zmei Kidney Stones Kidney stones are rock-like masses [...] Follow these instructions at home: Medicines Take nhey-cub-brwybqs and prescription medicines only as told by [...] provider. Document Revised: 05/22/2022 Document Reviewed: 05/22/2022 Bookya Patient Education 2022 [employer] Follow Up Care 03/10/2024 08:31:33 With:SALENA REDDY, JENNIFER López, URL Address: [address] [facility] [place] [address] When:3 months [facility] 07-11-2024 NotePatient Education Urology Kidney Stones Kidney [...] these instructions at home: Medicines ? Take yqgt-fpb-rbfgkyb and prescription medicines only as told by [...] provider. Document Revised: 05/22/2022 Document Reviewed: 05/22/2022 ElseNascentric Patient Education ? 2022 [employer] 02-29-2024 Instructions* Pre-Procedure Instructions - Aracely Boyd RN - 02/29/2024 10:00 AM EDT Your surgery/procedure is scheduled at [facility] on 03/06/2024 at 1130 Arrival Time 0930 [facility] Address: [address] [place] [address]. [place], [place] [address] Park in [address] Parking lot located on [facility]. Report to the Entrance B. Check in at the information desk the surgery. The waiting room located on the second floor. If you have any questions prior to surgery, please call Pre-Admission Clinic at [phone] between 7:30 am and 4:30 pm Sunday through Sunday. If you have questions the morning of surgery, please call the Pre-op Department at [phone]. Notify your SURGEON if you develop any [...] would like to schedule therapy at a [facility] facility, please call [phone] ([phone]). Do not use lotions, creams, powders, perfume, [...] RIGHTS AND RESPONSIBILITIES As a patient at [facility], you have the right to: Receive medical care and be informed of who is taking care of you Be treated with dignity and respect Have a family member/food service sales representatives of choice and your physician notified of your admission Receive information and actively participate in decisions about your care and treatment Refuse care, treatment and services Decide who may provide your support and speak for you Access taoist and spiritual services Participate in ethical issues [...] of hospital charges and payment methods Patient/patient food service sales representatives responsibilities are to: Provide information about [...] RIGHTS AND RESPONSIBILITIES As a patient at [facility], you have the right to: Receive medical care and be informed of who is taking care of you Be treated with dignity and respect Have a family member/food service sales representatives of choice and your physician notified of your admission Receive information and actively participate in decisions about your care and treatment Refuse care, treatment and services Decide who may provide your support and speak for you Access taoist and spiritual services Participate in ethical issues [...] of hospital charges and payment methods Patient/patient food service sales representatives responsibilities are to: Provide information about [...] Control department if you have any questions. [facility]05-31-2024 Miscellaneous Notes* Pre-Procedure Instructions - Aracely Boyd RN - 02/29/2024 10:00 AM EDT Your surgery/procedure is scheduled at [facility] on 03/06/2024 at 1130 Arrival Time 0930 [facility] Address: [address] [place] [address] Park in P1 Parking lot located on [facility]. Report to the Entrance B. Check in at the information desk the surgery. The waiting room located on the second floor. If you have any questions prior to surgery, please call Pre-Admission Clinic at [phone] between 7:30 am and 4:30 pm Sunday through Sunday. If you have questions the morning of surgery, please call the Pre-op Department at [phone]. Notify your SURGEON if you develop any [...] would like to schedule therapy at a [facility] facility, please call [phone] ([phone]). Do not use lotions, creams, powders, perfume, [...] RIGHTS AND RESPONSIBILITIES As a patient at [facility], you have the right to: Receive medical care and be informed of who is taking care of you Be treated with dignity and respect Have a family member/food service sales representatives of choice and your physician notified of your admission Receive information and actively participate in decisions about your care and treatment Refuse care, treatment and services Decide who may provide your support and speak for you Access taoist and spiritual services Participate in ethical issues [...] of hospital charges and payment methods Patient/patient food service sales representatives responsibilities are to: Provide information about [...] RIGHTS AND RESPONSIBILITIES As a patient at [facility], you have the right to: Receive medical care and be informed of who is taking care of you Be treated with dignity and respect Have a family member/food service sales representatives of choice and your physician notified of your admission Receive information and actively participate in decisions about your care and treatment Refuse care, treatment and services Decide who may provide your support and speak for you Access taoist and spiritual services Participate in ethical issues [...] of hospital charges and payment methods Patient/patient food service sales representatives responsibilities are to: Provide information about [...] you have any questions. documented in this encounterBrattleboro Memorial HospitalAffinegy [id number] History of Present illness Narrative* Stephanie Berger MD PhD - 01/17/2024 4:00 PM EDT [facility] [address] [facility] [id number] SUBJECTIVE: Patient ID ([id number]): Jose Alebrto Saleem is a 58 y.o. female presents [...] Hypertension Kidney stone Kidney stones Myocardial infarction ([facility]) 2014 5 stents Visual impairment Past Surgical History: Procedure Laterality Date APPENDECTOMY BIOPSY SALIVARY GLAND FS N/A 09/06/2017 Performed by Stephanie Berger MD at [facility] CARPAL TUNNEL RELEASE right CHOLECYSTECTOMY CORONARY ARTERY BYPASS GRAFT x4 ENDOSCOPIC FUNCTIONAL SINUS SURGERY Bilateral 01/03/2018 Performed by Stephanie Berger MD at [facility] ENDOSCOPIC SURGERY SINUS Bilateral 01/03/2018 Performed by Stephanie Berger MD at [facility] EXCISION MASS UPPER EXTREMITY Right 11/19/2019 Performed by Stephanie Morse DO at [facility] HERNIA REPAIR LAPAROSCOPIC GASTRIC BYPASS LITHOTRIPSY OVARIAN CYST REMOVAL PHACO KELMAN I IMPLANT INTRAOCULAR LENS Left 11/14/2018 Performed by Nisha Stoll MD at [facility] PHACO KELMAN I IMPLANT INTRAOCULAR LENS Right 11/05/2018 Performed by Nisha Stoll MD at [facility] RELEASE CARPAL TUNNEL Right 01/11/2022 Performed by Stephanie Morse DO at [facility] RELEASE CARPAL TUNNEL guyon canal CPT 88852 Left 07/19/2022 Performed by Stephanie Morse DO at [facility] RESECTION SUBMUCOSAL Bilateral 09/06/2017 Performed by Stephanie Berger MD at [facility] SEPTOPLASTY SEPTOPLASTY N/A 09/06/2017 Performed by Stephanie Berger MD at [facility] STENT INSERTION LACRIMAL DUCT EYE Right 09/06/2017 Performed by Stephanie Berger MD at [facility] URETERAL STENT PLACEMENT Family History Problem Relation [...] tablets (6.25 mg total) by mouth daily. lgjissov-odvt-FZ-calcium &mins (THERAGRAN-M) 9 mg iron-400 mcg tablet [...] day. (Patient not taking:Reported on 01/17/2024) sod vipty-vtneog-rzcevq bottle (NEILMED SINUS RINSE COMPLETE) packet with [...] this chart were generated using voice recognition [employer] dictation software. Although every effort was made to ensure the accuracy of this automated it architecture consultant, some errors in it architecture consultant may have occurred. documented in this encounterMercer County Community HospitalThe Luxury Club [id number] History of Present illness Narrative* Celso Garibay, [...] Assessment/Plan 1. Atherosclerosis of coronary artery of takotna heart without angina pectoris, unspecified vessel or lesion type 2. History of coronary artery bypass graft 3. Ischemic cardiomyopathy 4. Essential hypertension, benign documented in this encounterOhio[facility] Hospital Work Phone: 1(360) 881-579811-14-2023 Instructions* Patient Instructions* Ej Braswell MA - [...] time of your visit. documented in this encounterOhioHealth Shelby Hospital Work Phone: 1(125) 218-280009-18-2023 Hospital Discharge instructions* Discharge Instructions* Lissa Ocasio [...] call if excessive. Call the office at [phone] ([place]) [phone] ([place]) for an appointment in 2 weeks. documented in this encounterPAGE [facility]IAL [facility]09-[facility] History of Present illness Narrative* [...] pre-opvisit with Dr. Tripathi. documented in this encounterPAGE MEMORIAL [facility]OS[facility]ITAL02-20-2023 Evaluation note* Encounter Date Diagnosis Assessment Notes Treatment Notes Treatment Clinical Notes Nov, Elevated liver function tests (I CD-10 - R94.5) [employer] Other 02-02-[facility] Evaluation note* Encounter Date Diagnosis Assessment Notes Treatment Notes Treatment Clinical Notes Oct, Abdominal pain (ICD-10 - R10.9) Oct,ommon bile duct dilatation (ICD-10 - K83.8) Oct,Elevated liver enzymes (ICD-10 - R74.8) Oct,onstipation (ICD-10 - K59.00)Colonoscopy Start Miralax daily after colonoscopy. Titration dosing discussed with patient. Oct,olon cancer screening (ICD-10 - Z12.11) [employer] Other 01-04-2023 NotePROGRESS NOTE NOTE DATE: 10/04/2022 CHIEF COMPLAINT: Abdominal pain. HISTORY OF PRESENT ILLNESS: The patient is a 57-year-old female with a history of dyslipidemia and gastric bypass surgery, who has been having increasing abdominal pain and flank pain. She was seen yesterday at the [facility] for epigastric and upper abdominal [...] DISPOSITION: Home when medically stable.[facility] [id number] Hospital Discharge instructions Patient Education 06/02/2022 08:51:52 Kidney Stones, Jnlf-xm-Beer Kidney Stones Kidney stones are rock-like masses [...] Follow these instructions at home: Medicines Take bdxt-ihc-xjxlskl and prescription medicines only as told by [...] 03/05/2009 Document Revised: 02/03/2020 Document Reviewed: 02/03/2020 Bookya Patient Education 2020 [employer] Follow Up Care 05/27/2021 09:10:08 With:LORENA STRAUSS, Santiago Guzman, URL Address: [address] [place] [address]- When: Unknown [facility] evaluation + Plan note Future Appointments Appointment Date:06/01/2023 08:00:00 AM Scheduled Provider:Santiago CARRILLO MD Location:[facility] Appointment Type:URO Office Visit [facility] evaluation + Plan note Future Appointments Appointment Date:04/10/2024 03:00:00 PM Scheduled Provider:JENNIFER MARTINO PA-C Location:[facility] Appointment Type:URO Office Visit [facility] evaluation + Plan note Future Scheduled Tests Radiology* XR Abdomen 1 View 08/05/25 [facility] Evaluation note* Diagnosis Women's annual routine gynecological examination documented in this encounter [employer] Work Phone: evaluation noteNo assessment information [facility] Work Phone: Evaluation noteNo InformationNoGeisinger Medical Center [employer] Other Evaluation note* Diagnosis Post-menopausal bleeding Postmenopausal bleeding Inclusion cyst Sebaceous cyst documented in this encounter SADI RODRIGUEZ [facility] HEALTHEvaluation note* Diagnosis Atherosclerosis of coronary artery of takotna heart without angina pectoris, unspecified vessel or lesion type 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 Ischemic cardiomyopathy Other specified forms of chronic ischemic heart disease Essential hypertension, benign documented in this encounter [facility] Work Phone: Evaluation note* Diagnosis Atherosclerosis of coronary artery of takotna heart without angina pectoris, unspecified vessel or lesion type 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 Essential hypertension, benign Hyperlipidemia, unspecified hyperlipidemia type Acute pancreatitis, unspecified complication status, unspecified pancreatitis type ([facility]) documented in this encounter [facility] Work Phone: Evaluation note* Diagnosis Atherosclerosis of coronary artery bypass graft of takotna heart without angina pectoris S/P PTCA (percutaneous transluminal coronary angioplasty) Postsurgical percutaneous transluminal coronary angioplasty status 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 Ischemic cardiomyopathy Other specified forms of chronic ischemic heart disease Essential hypertension Unspecified essential hypertension Mixed hyperlipidemia BMI 30.0-30.9,adult Statin intolerance documented in this encounter [facility] Work Phone: Evaluation note* Diagnosis Dry nose- Primary Other diseases of nasal cavity and sinuses Xerostomia Disturbance of salivary secretion Allergic rhinitis, unspecified seasonality, unspecified trigger [facility] Diagnosis Xerostomia- Primary Disturbance of salivary secretion documented in this encounter [facility]* Diagnosis Acute pain of right wrist- Primary Tendonitis of wrist, right documented in this encounter [facility] HealthcareEvaluation note* Diagnosis Right wrist pain- Primary Pain in joint, forearm Arm weakness Other musculoskeletal symptoms referable to limbs Numbness Disturbance of skin sensation Arm pain, right Pain in soft tissues of limb Ulnar neuropathy of right upper extremity documented in this encounter [facility]* Diagnosis Numbness- Primary Disturbance of skin sensation Paresthesias Disturbance of skin sensation Carpal tunnel syndrome, left Carpal tunnel syndrome documented in this encounter [facility]* Diagnosis Chronic pain of right wrist documented in this encounter [facility] HealthcareEvaluation note* Diagnosis Tendonitis of wrist, right Right wrist pain Pain in joint, forearm documented in this encounter [facility] HealthcareHistory and physical note Author Evert Bruno [facility] November 01, 2022 12:40pmNote Date/TimeFebruary 2022 12:40[place] [address] Gastroenterology H&P Signed Patient: Jose Alberto Saleem MR#: [id number] : 1965 Acct:[id number] Age/Sex: 57 / F Adm Date: 3 Loc: Room: Type: [facility] Attending Dr: Evert Bruno MD Copies to: MD Evert Little MD~ Date of Service: 11/01/2022 HISTORY & PHYSICAL: Patient's history with special attention to the cardiovascular, pulmonary systems and the current problem was reviewed with the patient immediately prior to the procedure. Present medications and doses reviewed in the EMR. Allergies and pertinent laboratory tests were also re viewedat this time in the EMR. The physical [...] M.D. Documented By: Evert Bruno MD 11/01/22 1235 Signed By: <Electronically signed by Evert Bruno MD> 11/01/22 1240 [facility] Work Phone: History and physical note Author Evert Bruno [facility] November 02, 2022 2:14pmNote Date/TimeFebruary 2022 2:14pm[place] [address] Gastroenterology H&P Signed Patient: Jose Alberto Saleem MR#: [id number] : 1965 Acct:[id number] Age/Sex: 57 / F Adm Date: 3 Loc: Room: Type: [facility] Attending Dr: Evert Bruno MD Copies to: MD Evert Little MD~ Date of Service: 11/02/2022 HISTORY & PHYSICAL: Patient's history with special attention to the cardiovascular, pulmonary systems and the current problem was reviewed with the patient immediately prior to the procedure. Present medications and doses reviewed in the EMR. Allergies and pertinent laboratory tests were also re viewedat this time in the EMR. The physical [...] signed by Evert Bruno MD> 11/02/22 1414 [facility] Work Phone: History general Narrative - Reported* Type Description Date Medical History impaired fasting glucose Medical Historyheart disease, [place] stents, CABGMedical HistoryHypertensionMedical HistoryhyperlipidemiaMedical Historynut cracker esophogusSurgical HistoryCABG remote historySurgical Historygastric [id number] Historymultiple kidney stones removedSurgical HistoryappendectomySurgical Historycyst on ovarian removedSurgical Historybilateral carpe tunnel [id number] History cholecystectomyHospitalization Historysee surgical hx [employer] Other Hospital course Narrative No data available for this section [facility] Discharge instructions Additional Instructions DISCHARGE INSTRUCTIONS [...] problems. -Follow up with PCP. -Office number [phone]. [facility] Work Phone: Hospital Discharge instructions [...] problems. -Follow up with PCP. -Office number [phone]. [facility] Work Phone: Hospital Discharge instructions No data available for this section [facility] InstructionsNot on filedocumented in this encounter [employer]!Tax SystemInstructionsNot on filedocumented in this encounter [employer]!Tax SystemInstructionsNot on filedocumented in this encounter [facility] HospitalDataCore Software Ziffi SystemProgress note No data available for this section [facility] reason for referral (narrative)* Consultation (Routine) - AuthorizedSpecialtyDiagnoses / ProceduresReferred By ContactReferred To ContactCardiology Diagnoses Atherosclerosis of coronary artery of [place] heart without angina pectoris, unspecified vessel or lesion type History of coronary artery bypass graft Procedures Follow Up In Cardiology Celso Garibay DO [address] [address], [address] [address] Celso Garibay DO [address] [facility] 2, [address] [address] Referral IDStatusReasonStart DateExpiration DateVisits RequestedVisits [id number]/14/202311/ [facility] Work Phone: Reason for visit Narrative* Other Medical (Routine) - ClosedSpecialtyDiagnoses / ProceduresReferred By ContactReferred To Contact Neurology Diagnoses Arm weakness Numbness Arm pain, right Ulnar neuropathy of right upper extremity Procedures EMG AND NERVE CONDUCTION STUDY Raji Byrd PA [address] [place] [address] Phone: tel: fax: Rae Louie MD [address] [address] Phone: tel: fax: Referral IDStatusReasonStart DateExpiration DateVisits RequestedVisits [id number]/15/20252/11/202611 [facility] Healthcare Summary Purpose Family History Unknown Family [...] Date/T cb father Heart disease Unknown Not SpecifiedHeart diseaseUnknownbrotherHeart diseaseUnknowngrandparent Cerebrovascular accident (CVA)UnknownUnknown Family Member Name Dates Details Family history [...] disease Unknown History of coronary artery bypass surgeryUnknownMyocardial infarctionUnknown motherHeart diseaseUnknownMalignant neoplasmUnknownbrotherHeart diseaseUnknown grandparentCerebrovascular accident (CVA)UnknownbrotherHistory of coronary artery bypass surgeryUnknownCerebrovascular accident (CVA)Unknown Advance Directives TypeDate RecordedPatient RepresentativeExplanationAdvance Directives and Living WillPower of AttorneyTypeDate RecordedPatient RepresentativeExplanationACP- Advance DirectiveACP-Power of Ecg Technician Advance Directive Response Recorded Date/ Time Advance Directives No April 17 12:46am Advance Directive Response Recorded Date/ Time Advance Directives No April 17 1:46am Code StatusDate ActivatedDate InactivatedCommentsFull Code06/18/2023 1:21 PM Assessments Diagnosis Well female exam [...] adverse reactions to other medications, hypotension. * [place] [employer] is class I * Recommendations, [...] section and content) DATE CREATED AUTHOR 03/26/2018 [facility] DATE CREATED AUTHOR AUTHOR'S ORGANIZ ATION 03/26/2018 [facility] DATE CREATED AUTHOR AUTHOR'S ORGANIZ ATION 08/02/2022 [facility] DATE CREATED AUTHOR AUTHOR'S ORGANIZ ATION 08/17/2022 [employer] [facility] DATE CREATED AUTHOR AUTHOR'S ORGANIZ ATION 10/17/2022 [facility] DATE CREATED AUTHOR AUTHOR'S ORGANIZ ATION 06/23/2023 [facility] DATE CREATED AUTHOR AUTHOR'S ORGANIZ ATION 07/16/2023 [facility] DATE CREATED AUTHOR AUTHOR'S ORGANIZ ATION 01/19/2024 [facility] DATE CREATED AUTHOR AUTHOR'S ORGANIZ ATION 03/07/2024 [facility] DATE CREATED AUTHOR AUTHOR'S ORGANIZ ATION 08/06/2024 [facility] DATE CREATED AUTHOR AUTHOR'S ORGANIZ ATION 09/15/2024 [facility] DATE CREATED AUTHOR AUTHOR'S ORGANIZ ATION 10/16/2024 [facility] DATE CREATED AUTHOR AUTHOR'S ORGANIZ ATION 01/22/2025 [facility] DATE CREATED AUTHOR AUTHOR'S ORGANIZ ATION 06/15/2025 [facility] DATE CREATED AUTHOR AUTHOR'S ORGANIZ ATION 06/24/2025 [facility] EPIC Care Teams (unrecognized sec tion and content) Team Status: Active Member Role Status Dates Ziggy Grigsby MD Primary Care Provider Active Team Status: Active Member Role Status Dates Ziggy Grigsby MD Primary Care Provider Active Start: August 18, 2024 Lynnette Chapman MDEmergency ProviderActiveStart: August 18, 2024 Risa Li Provider, Attending ProviderActiveStart: August 18, 2024 Team Status: Inactive Member Role Status Dates Ziggy Grigsby MD Primary Care Provider Active Imad Asaad , MDAttending ProviderActiveTeam MemberRelationshipSpecialtyStart DateEnd Date Zigyg Grigsby MD [address] [place] [address] PCP - GeneralFamily Uqowplih79/19/19Team MemberRelationshipSpecialtyStart Date End Date Ziggy Grigsby MD [address] [place] [address] PCP - GeneralFamily Zdnnagvq62/19/19Team MemberRelationshipSpecialtyStart Date End Date Ziggy Grigsby MD [address] [place] [address] PCP - Cjamiry27/17/21Team MemberRelationshipSpecialtyStart DateEnd Date Ziggy Grigsby MD [address] [place] [address] PCP - Cxtucio27/17/21Team MemberRelationshipSpecialtyStart [place] [address] [place] [address] PCP - Lofygwg87/17/21 Anita Hammonds, RN Care ManagerCase Rkaoumorye48/22/24Team MemberRelationshipSpecialtyStart DateEnd Date Ziggy Grigsby MD [address] [place] [address] PCP - General02/22/17Team MemberRelationshipSpecialtyStart DateEnd Date Ziggy Grigsby MD [address] [place] [address] PCP - General02/22/17Team MemberRelationshipSpecialtyStart DateEnd Date Ziggy Grigsby MD [address] [place] [address] PCP - General02/22/17Team MemberRelationshipSpecialtyStart DateEnd Date Ziggy Grigsby MD [address] [place] [address] PCP - GeneralFamily Yhpicdkl75/14/23Team MemberRelationshipSpecialtyStart Date End Date Ziggy Grigsby MD [address] [place] [facility] [place] [address] PCP - GeneralFamily Crzlkwko57/14/23Team MemberRelationshipSpecialtyStart Date End Date Ziggy Grigsby MD [address] [place] [facility] [place] [address] PCP - GeneralFamily Medicine02/13/25Team MemberRelationshipSpecialtyStart DateEnd Date Ziggy Grigsby MD [address] [place] [facility] [place] [address] PCP - GeneralFamily Medicine02/13/25Team MemberRelationshipSpecialtyStart DateEnd Date Ziggy Grigsby MD [address] [place] [facility] [place] [address] PCP - GeneralFamily Medicine02/13/25Team MemberRelationshipSpecialtyStart DateEnd Date Ziggy Grigsby MD [address] [place] [facility] [place] [address] PCP - GeneralFamily Medicine02/13/25Team MemberRelationshipSpecialtyStart DateEnd Date Ziggy Grigsby MD [address] [place] [facility] [place] [address] PCP - GeneralFamily Medicine02/13/25Team MemberRelationshipSpecialtyStart DateEnd Date Ziggy Grigsby MD [address] [place] [facility] [place] [address] PCP - GeneralFamily Medicine02/13/25 REASON FOR VISIT (unrecogniz ed section and content) SpecialtyDiagnoses / ProceduresReferred By ContactReferred To Contact Diagnoses Post-menopausal bleeding Inclusion cyst Post-menopausal bleeding [N95.0] Inclusion cyst [L72.0] Procedures NV HYSTEROSCOPY BX ENDOMETRIUM&/POLYPC W/WO D&C NV DESTRUCTION BENIGN LESIONS UP TO 14 DILATATION AND CURETTAGE HYSTEROSCOPY-REMOVAL OF INCLUSION CYST Gaby Phillips F, DO [address] [place] [address] [facility] [address] [place] [address] Referral IDStatusReasonStart DateExpiration DateVisits RequestedVisits [id number] [id number] / Procedures Referred By ContactReferred To ContactCardiology Diagnoses Atherosclerosis of coronary artery of [place] heart without angina pectoris, unspecified vessel or lesion type History of coronary artery bypass graft Procedures Follow Up In Cardiology Celso Garibay, [address] [facility] 2, [address] [address] Phone: tel: fax: Celso Garibay, [address] [facility] 2, [facility] [address] [place] [address] Phone: tel: fax: Referral IDStatusZofiaasonStnewhall DateExpiration DateVisits RequestedVisits [id number]/14/202311/304971RkmnsaSsrvngmsUikysd-bwSLGG discharge 08/22ReasonCommentsMed RefillReasonCommentsPainReasonCommentsPain Ordered Prescriptions (unrec ognized section and content) PrescriptionSigDispensedRefillsStart DateEnd Date ketorolac (TORADOL) 10 MG tablet Take 1 tablet by mouth every 6 hours as needed for Pain 10 tablet / Scheduled Active and Recently Administ ered Medications (unrecognized section and content) Medication Order/17/ acetaminophen (TYLENOL) tablet 650 mg (COMPLETED) 650 mg, Oral, ONCE, 1 dose, On Sun06/18/23 at 1345, Maximum dose of acetaminophen is 4000 mg from all sources in 24 hours., Pre-op (day of surgery) * 1342 (Given - Provider: Sigrid Mendoza RN) dimenhyDRINATE (DRAMAMINE) tablet 50 mg (COMPLETED) 50 mg, Oral, ONCE, 1 dose, On Sun06/18/23 at 1345, Pre-op (day of surgery) * 1342 (Given - Provider: Sigrid Mendoza RN) sodium chloride flush 0.9 % injection 5-40 mL 5-40 mL, IntraVENous, EVERY 12 HOURS SCHEDULED (2 times per day), First dose on Sun06/18/23 at 2100, Until Discontinued, For Line Patency: Peripheral IV = 5 mL; Midline or Central Line = 10 mL/lumen.If following IV push medication, administer flush at same rate as the IV push. Flush volume is determined by type of infusion therapy being given. For non-viscous solutions use: Peripheral IV = 5 mL Midline or Central Line = 10 mL/lumen For viscous solutions (i.e. blood components, parenteral nutrition, contrast media, or after obtaining blood sample) use: Peripheral IV = 10 mL Midline or CentralLine = 20 mL/lumen, Pre-op (day of surgery) * 2100 (Due) sodium chloride flush 0.9 % injection 5-40 mL 5-40 mL, IntraVENous, EVERY 12 HOURS SCHEDULED (2 times per day), First dose on Sun06/18/23 at 2100, Until Discontinued, For Line Patency: Peripheral IV = 5 mL; Midline or Central Line = 10 mL/lumen.If following IV push medication, administer flush at same rate as the IV push. Flush volume is determined by type of infusion therapy being given. For non-viscous solutions use: Peripheral IV = 5 mL Midline or Central Line = 10 mL/lumen For viscous solutions (i.e. blood components, parenteral nutrition, contrast media, or after obtaining blood sample) use: Peripheral IV = 10 mL Midline or CentralLine = 20 mL/lumen, PACU only * 2100 (Due) Medication Order/ lactated ringers IV soln infusion IntraVENous, at 100 mL/hr, CONTINUOUS, Starting on Sun06/18/23 at 1345, Pre-op (day of surgery) * 1343 (New Bag - Provider: Sigrid Mendoza RN) * 1401 (NoRateChange - Provider: OTONIEL Fragoso CRNA) * 1432 (Paused - Provider: OTONIEL Fragoso CRNA - Comment: Switch to gravity) * 1433 (Restarted - Provider: OTONIEL Fragoso CRNA) Medication Order06/16/// 0.9 % sodium chloride infusion IntraVENous, at [...] less into rate field of order., Pre-op (dayof surgery) 0.9 % sodium chloride infusion IntraVENous, [...] less into rate field of order., Pre-op (dayof surgery) fentaNYL (SUBLIMAZE) injection 25 mcg 25 mcg, IntraVENous, EVERY 5 MIN PRN, 2 doses, Starting on Sun06/18/23 at 1449, Until Discontinued,Pain Moderate (4-6), For Phase I. If Phase II oral narcotics have been administered in the last 60 minutes, do not administer IV narcotics unless specifically approved by provider., PACU only fentaNYL (SUBLIMAZE) injection 50 mcg 50 mcg, IntraVENous, EVERY 5 MIN PRN, 2 doses, Starting on Sun06/18/23 at 1449, Until Discontinued,Pain Severe (7-10), For Phase I. If Phase [...] Pain Severe (7-10), PHASE II, PACU only * 1505 (Given - Provider: Anastasia Valverde RN) sodium chloride flush 0.9 [...] For viscous solutions (i.e. blood components, parenteral nutrition,contrast media, or after obtaining blood sample) use: Peripheral IV = 10 mL Midline or Central Line= 20 mL/lumen, Pre-op (day of surgery) sodium [...] For viscous solutions (i.e. blood components, parenteral nutrition,contrast media, or after obtaining blood sample) use: Peripheral IV = 10 mL Midline or Central Line= 20 mL/lumen, PACU only sodium chloride flush [...] For viscous solutions (i.e. blood components, parenteral nutrition,contrast media, or after obtaining blood sample) use: Peripheral IV = 10 mL Midline or Central Line= 20 mL/lumen, Pre-op (day of surgery) Goals [...] BE BASED ON THE PRIMARY CLINICAL RECORDS. [facility]. provides no warranty or guarantee of the accuracy or completeness of information in this document.
[2025-07-22 10:34] LABS: Hematocrit 47.9 % (36.0-48.0); Hemoglobin 15.5 g/dL (12.0-16.0); Immature Granulocytes Abs Auto 0.00 10^3/uL (0.00-0.03); Immature Granulocytes Pct Auto 0.0 % (0.0-0.5); Lymphocytes Absolute Auto 1.4 10^3/uL (1.2-3.8); Mean Corpuscular HGB Conc 32.4 g/dL (29.9-35.2); Mean Corpuscular Hemoglobin 29.5 pg (26.7-34.0); Mean Corpuscular Volume 91.2 fL (81.0-99.0); Platelet Count 212 10^3/uL (150-450); Red Blood Count 5.25 10^6/uL (4.20-5.40); White Blood Count 5.3 10^3/uL (4.0-11.0)
[2025-07-22 11:08] LABS: Alanine Aminotransferase 36 U/L (14-59); Albumin Globulin Ratio 1.1; Albumin Level 3.9 g/dL (3.4-5.0); Alkaline Phosphatase 109 U/L (46-116); Amylase 173 U/L (25-115); Anion Gap 12.4; Aspartate Amino Transferase 26 U/L (15-37); Blood Urea Nitrogen 18.0 mg/dL (7.0-18.0); Calcium 9.9 mg/dL (8.5-10.1); Carbon Dioxide 31.7 mmol/L (21.0-32.0); Chloride 102 mmol/L (98-107); Cholesterol 232 mg/dL (<=200); Estimated GFR (African America >60 (>=60 mL/min/1.73m^2); Estimated GFR (Non-African Ame >60 (>=60 mL/min/1.73m^2); Free T3 3.26 pg/mL (2.18-3.98); Globulin 3.6 g/dL; Glucose 104 mg/dL (74-106); HDL Cholesterol 51 mg/dL (40-60); Lipase 109.0 U/L (16.0-77.0); Potassium 4.1 mmol/L (3.5-5.1); Sodium 142 mmol/L (136-145); Thyroid Stimulating Hormone 3.225 uIU/mL (0.358-3.740); Total Protein 7.5 g/dL (6.4-8.2); Triglycerides 226 mg/dL (<=150); VLDL CHOLESTEROL 45.2 mg/dL
[2025-07-22 11:31] LABS: Iron 101.0 ug/dL (50.0-170.0)
== END 2025-07-22 09:59 | disposition home or self-care (01) ==
LOC: LAB 10:00
PROVIDERS: PCP Family Medicine; Visit Provider Family Medicine
DX: Z00.00 Encounter for general adult medical examination without abnormal findings (principal)
CPT/HCPCS: 36415; 80053; 80061; 82150; 82306; 83036; 83525; 83540; 83690; 84436; 84443; 84481; 85025

== ENCOUNTER 2025-07-29 14:39 | Outpatient (REF) | payer BC, SELFPAY ==
--- OUTSIDE RECORDS SUMMARY | 2024-09-10 09:15 | XMS_ITS | Continuity of Care Document ---
Author Organization [employer] [facility] Address [address] [place] [address] Phone Care Team Providers Care Wire Frame Lampshade Maker Name Role Phone Johanna Raygoza CNP Unavailable Unavailable Procedures Procedure Date OFFICE/OUTPATIENT VISIT, EST OFFICE/OUTPATIENT VISIT, EST OFFICE/OUTPATIENT VISIT, EST OFFICE/OUTPATIENT VISIT, EST OFFICE/OUTPATIENT VISIT, EST OFFICE/OUTPATIENT VISIT, EST OFFICE/OUTPATIENT VISIT, EST POSTOP FOLLOW-UP VISIT POSTOP FOLLOW-UP VISIT LAP GASTRIC BYPASS/DARNELL-EN-Y Gastric Bypass OFFICE/OUTPATIENT VISIT, EST OFFICE/OUTPATIENT VISIT, EST OFFICE CONSULTATION Advance Directives Directive Yes / No Effective Date File Name No Information Encounters Encounter Description Practice Location Reason(s) For Visit Diagnoses Date Provider Providers Copied on Encounter OFFICE/OUTPATI ENT VISIT, [facility] [employer] [facility], [address], [place], [place], [id number], [place] tel:[phone] [facility] No Information Idalmis Spencer. [address] [facility] [address], [place], [address], [place]. tel:[phone] Referring Provider: Johanna Raygoza, [address] [facility] [address], [place], [address]. tel:[phone] OFFICE/OUTPATI ENT VISIT, [employer] [facility], [address], [place], [place], [address], [place] tel:[phone] [facility] No Information Idalmis Spencer. [address], [place], [place], [address], [place]. tel:[phone] Referring Provider: Johanna Raygoza, [facility] [address], [place], [address]. tel:[phone] OFFICE/OUTPATI ENT VISIT, [employer] [facility], [address] [place] [address] [address], [place], [place], [id number], [place] tel:[phone] [facility] No Information Idalmis Spencer. [address] [facility] [address], [place], [place], [address], [place]. tel:[phone] Referring Provider: Johanna Raygoza, [facility] [address] [facility] [address], [place], [address]. tel:[phone] OFFICE/OUTPATI ENT VISIT, [employer] [facility], [address] [facility] [address] [facility] [address], [place], [place], [address], [place] tel:[phone] [facility] No Information Idalmis Spencer. [address] [facility] [address], [place], [place], [address], [place]. tel:[phone] Referring Provider: Johanna Raygoza, [address] [facility] [address], [place], [address]. tel:[phone] OFFICE/OUTPATI ENT VISIT, [employer] [facility], [address], [place], [place], [address], [place] tel:[phone] [facility] No Information Idalmis Spencer. [address], [place], [place], [address], [place]. tel:[phone] Referring Provider: Johanna Raygoza, [address], [place], [address]. tel:[phone] OFFICE/OUTPATI ENT VISIT, [facility] [employer] [facility], [address] [place] [address] [address], [place], [place], [address], [place] tel:[phone] [facility] No Information Idalmis Spencer. [address] [place] [address] [address], [place], [place], [address], [place]. tel:[phone] Referring Provider: Johanna Raygoza, [address] [place] [address] [address], [place], [address]. tel:[phone] OFFICE/OUTPATI ENT VISIT, [facility] [employer] [facility], [address] [place] [address] [address], [place], [place], [address], [place] tel:[phone] [facility] No Information Idalmis Spencer. [address] [place] [address] [address], [place], [place], [address], [place]. tel:[phone] Referring Provider: Johanna Raygoza, [address] [place] [address] [address], [place], [address]. tel:[phone] [employer] [facility], [address] [place] [address] [address], [place], [place], [address], [place] tel:[phone] [facility] No Information Idalmis Spencer. [address] [place] [address] [address], [place], [place], [address], [place]. tel:[phone] Referring Provider: Johanna Raygoza, [address] [place] [address] [address], [place], [address]. tel:[phone] [facility], [address] [place] [address] [address], [place], [place], [address], [place] tel:[phone] [facility] No Information Idalmis Spencer. [address] [place] [address] [address], [place], [place], [address], [place]. tel:[phone] Referring Provider: Johanna Raygoza, [address] [place] [address] [address], [place], [address]. tel:[phone] [facility] [employer] [facility], [address] [place] [address] [address], [place], [place], [address], [place] tel:[phone] [facility] No Information Cady Mccurdy. [address] [place] [address] [address], [place], [place], [address], [place]. tel:[phone] Referring Provider: Kaz De Los Santos, [address] [place] [address] [address], [place], [address]. tel:[phone] [employer] [facility], [address] [place] [address] [address], [place], [place], [address], [place] tel:[phone] [facility] No Information Idalmis Spencer. [address] [place] [address] [address], [place], [place], [address], [place]. tel:[phone] Referring Provider: Johanna Raygoza, [address] [place] [address] [address], [place], [address]. tel:[phone] OFFICE/OUTPATI ENT VISIT, [facility] [employer] [facility], [address] [place] [address] [address], [place], [place], [address], [place] tel:[phone] [facility] No Information Cady Mccurdy. [address] [place] [address] [address], [place], [place], [address], [place]. tel:[phone] Referring Provider: Kaz De Los Santos, [address] [place] [address] [address], [place], [address]. tel:[phone] OFFICE/OUTPATI ENT VISIT, [facility] [employer] [facility], [address] [place] [address] [address], [place], [place], [address], [place] tel:[phone] [facility] No Information Cady Mccurdy. [address] [place] [address] [address], [place], [place], [address], [place]. tel:[phone] Referring Provider: Kaz De Los Santos, [address] [place] [address] [address], [place], [address]. tel:[phone] OFFICE CONSULTATION [facility], [address], [place], [place], [address], [place] tel:[phone] [facility] No Information Cady Mccurdy. [address] [facility] [address], [place], [place], [address], [place]. tel:[phone] Referring Provider: Kaz De Los Santos, [address] [facility] [address], [place], [address]. tel:[phone] Family History Family Member Type Diagnosis Age At Onset No Information Payers Payer name Insurance type Covered green party ID Raad gomez(eva Jones [id number] Social History Type Description Quantity Date Captured Comments Sex Female Smoking Status No Information Chief Complaint And Reason For Visit No Information Reason For Referral Reason For Referral No Information Plan Of Treatment Date Type Action Status Appointment Tiarra Carney BOOKED History Of Present Illness Encounter Date Complaint History Of Prese nt Illness No Information Functional Status Date Functional Assessmen t No Information Instructions Date Instruction Additional Infor mation No Information Assessments Type Assessment Date No Information Patient Care Teams Name Effective Dates (start - stop) Status Members No Information
--- OUTSIDE RECORDS SUMMARY | 2025-07-29 14:42 | XMS_ITS | Clinical Summary ---
Author Organization [facility] Address [address] [place] [address] Phone Care Team Providers Care Mechanical Engineer Name Role Phone Ziggy Dejesus MD Primary Care Provider [phone] Allergies Active AllergyReactionsCriticalityNoted DateCommentsBaclofenShortness of breath High08/09/2023LatexShortness of bafhtoGvmk62/09/9383WvupfeaelykYcjzVuc82/09/2023 RcdablfflgwbOsbmnSkajrg68/09/2023Sulfa (Sulfonamide Antibiotics)Shortness of zkrrhrUwzu30/09/2023Sulfamethoxazole-WolrqnycwcqvTfhvhTmbdzn41/09/2023 Medications MedicationSigDispense QuantityRefillsLast FilledStart DateEnd DateStatus cevimeline [...] to affected area twice a day if zhoumr3305/05/2020Active Aciphex EC tablet Take 1 tablet (20 [...] SL tablet Indications:Atherosclerosis of coronary artery of [place] heart without [...] Indications:Atherosclerosis of coronary artery bypass graft of mi'[place]maq heart without angina pectoris,S/P PTCA (percutaneous transluminal coronary angioplasty),History of coronary artery bypass graftTake 1 tablet (75 mg) by mouth once daily. 90 tablet 5Active amLODIPine (Norvasc) 2.5 mg tablet Indications:Essential hypertensionTake 1 tablet (2.5 mg) by mouth once daily. 90 tablet /5Active aspirin 81 mg EC tablet Indications:Atherosclerosis of coronary artery bypass graft of mi'kmaq heart without angina pectorisTAKE 1 TABLET BY MOUTH DAILY 90 tablet 5Active Active Problems ProblemNoted DateDiagnosed DateStatin pentplfarxm33/06/2024MI 30.0-30.9,adult 09/05/2024S/P PTCA (percutaneous transluminal coronary angioplasty)09/05/2024 Wmqjlafeyxkg56/13/2024therosclerosis of coronary artery of [place] heart without angina mdugvmki53/09/2023Essential uknufnmdvqfe94/09/2023History of coronary artery bypass graft08/09/20230923Ipobgaknjqqafg98/09/2023Ischemic cardiomyopathy 08/09/2023aroxysmal SVT (supraventricular tachycardia)08/09/2023Ventricular septal vnruyc3608/09/2023 Family History Medical HistoryRelationNameCommentsHeart attackBrother2 broStrokeBrother2 bro open heartBrother2 broRelationNameStatusCommentsBrother2 bro Social History Tobacco UseTypesPacks/DayYears UsedDateSmoking Tobacco: NeverSmokeless Tobacco: Never Tobacco Cessation:Counseling Given: Yes Alcohol UseStandard Drinks/WeekCommentsNever0 (1 standard drink = 0.6 oz pure alcohol)CommentsUnknownSex and Gender InformationValueDate RecordedSex Assigned at BirthNot on fileLegal ThpRamkzz27/26/2022 5:40 AM ESTGender Identity Not on fileSexual OrientationNot on file Last Filed Vital Signs Vital SignReadingTime TakenCommentsBlood Ccltxxbl441/80111/06/2023 9:53 AM EST Xkvrs539009/05/2024 9:53 AM ESTTemperature--Respiratory Rate--Oxygen Saturation-- Inhaled Oxygen Concentration--Bumhfe27.1 kg (170 lb)09/05/2024 9:53 AM ESTHeight 160 cm (5' 3 )09/05/2024 9:53 AM ESTBody Mass Index30.11111/06/2023 9:53 AM EST Plan of Treatment DateTypeDepartmentCare Team (Latest Contact Info)Srshnwfffrn49/18/2025 11:20 AM ESTOffice Visit [facility] [address] [facility] [address] [place] [address] Celso Garibay, [address] [facility] 2, [address] [place] [address] Health MaintenanceDue DateLast DoneCommentsCT Uoulamlefyyg1964FIT-DNA (Cologuard)1964FIT1964HIV Blisgskrt1964Lipid Panel1964 Yikrkgcwpyivc1964MMR Vaccines (1 of 1 - Standard series)09/09/1965Diabetes Zjudkqtig83/09/1982Hepatitis C Zyaurxqdu41/09/1982HPV/Uzvauv7906/09/1985 DTaP/Tdap/Td Vaccines (1 - Tdap)1986RSV High Risk: (Elderly (60+) or Population) (1 - Risk 50-74 years 1-dose series)2014Pneumococcal Vaccine (2 of 2 - PCV)Yearly Adult Qvdvzfin90/17/2024 02/13/2023, 02/07/2022, 02/07/2022, Additional history sjhsezLsgvhgwhg94/15/2024 08/15/2023, 07/24/2022, 10/28/2020ervical Cancer Gfbmeipby59/10/2025Pap Smear , 02/07/2022Influenza Vaccine (#1)509/01/2024, 06/05/2023, 06/16/2022, Additional history existsCOVID-19 Vaccine (2024- season)511/10/2020, 01/29/2021, 01/08/20216581Hvspnqvofiw35/02/2033 11/02/2022, 3Colorectal Cancer Opjopegcn68/02/2033Zoster Vaccines Opukmngsb10/21/2022, 06/16/2022HIB VaccinesAged OutNo longer eligible based on [...] CarneyAcconuvia TypeRelation to PatientDate of BirthPhone Billing AddressPersonal/OynxlvTjxp1965 [address] [place] [address] Care Teams Team MemberRelationshipSpecialtyStart DateEnd Ziggy Dejesus MD [address] [place], [place] [id number] PCP - Okpxkuk97/17/21
--- OUTSIDE RECORDS SUMMARY | 2025-07-29 14:42 | XMS_ITS | Clinical Summary ---
Author Organization [facility] Address [address] [facility], [address] [place] [address] Care Team Providers Care Government Operations Consultant Name Role Phone Ziggy Dejesus MD Primary Care Provider [phone] Allergies Active AllergyReactionsCriticalityNoted DateCommentsBaclofenOther (See Comments) 07/10/2017 bradypnea Sulfamethoxazole-Asghikbexxcv86/19/2019Rosuvastatin Ebytndm3408/19/2019Fenofibrate 05/15/2023 Other reaction(s): (Louis) 08/08/2011 LatexAnaphylaxis,Shortness Of OouucvDaaz48/16/2006LevofloxacinOther (See Comments)07/10/2017 thrush YaednvwuoqyZrchi39/14/2006Phenazopyridine Hcl03/14/20069409Swwwwgzcvbl00/14/2006 PT TOLERATES CRESTOR Sulfa AntibioticsOther (See Comments)10/12/20211136YrmozounsmFxlbInp52/04/2023 Tjufmclffaus27/01/2023 Other reaction(s): Hives Medications MedicationSigDispense QuantityRefillsLast FilledStart [...] = 0.6 oz pure alcohol)PHQ-2AnswerDate RecordedPHQ-9 Total Jvtmk924Interpersonal Safety Domain Source: IP Abuse ScreeningAnswerDate RecordedRead-Only, Retired: Physical MzottVeywjh07/18/2023Read-Only, Retired: Verbal JjmusXlbhym28/18/2023 Read-Only, Retired: Emotional kpyarUattot86/18/2023Read-Only, Retired: Financial JnnwrUlithh21/18/2023Read-Only, Retired: Sexual qnsisKjcegi90/18/2023 CommentsNoSex and Gender InformationValueDate RecordedSex Assigned at Bbmijg0710/26/2024 4:50 PM ESTLegal UbcLtbbzo38/07/2013 12:32 PM ESTGender IdentityNot on fileSexual OrientationNot on file Last Filed Vital Signs Vital SignReadingTime TakenCommentsBlood Tijejitl655/8210/28/2024 4:46 PM EST Drpxc752506/18/2023 3:15 PM KVSBnkrjaverbv98.1 ??C (97 ??F)06/18/2023 2:36 PM EDT Respiratory Yvoa130406/18/2023 3:15 PM EDTOxygen Hsxzsficxa18%06/18/2023 3:15 PM EDTInhaled Oxygen Concentration--Lbdflb87.9 kg (154 lb)10/28/2024 4:46 PM EST Cprbnl235 cm (5' 3 )10/28/2024 4:46 PM ESTBody Mass Index27.28010/28/2024 4:46 PM EST Plan of Treatment DateTypeDepartmentCare Team (Latest Contact Info)Dbaoyuzligq78/03/2026 4:15 PM ESTOffice Visit [facility] Part of [address] [place] [address] Gaby Murry, DO [address] [place] [address] [address] [place], [place] [id number] AnnualHealth MaintenanceDue DateLast FhtaAtfixwbvSegqzw48/09/1974HIV screen 1979Hepatitis C uivqvp1406/09/1982DTaP/Tdap/Td vaccine (1 - Tdap)1983 Diabetes drjmnt8306/09/19994522Kjtpczeupnz31/09/2009Colorectal Cancer Uzhiee6006/09/2009 FIT/FOBT: Average risk2009Fecal-DNA (Cologuard): Average risk2009 Sigmoidoscopy/CT medbymnvnciw27/09/2009Pneumococcal 50+ years Vaccine (2 of 2 - PCV)Respiratory Syncytial Virus (RSV) or age 60 yrs+ (1 - Risk 60-74 years 1-dose series)4Pap smear02/07/2025 02/07/2022, 08/19/2019Flu vaccine (#1)509/01/2023, 06/16/2022, 2022, Additional history existsCOVID-19 Vaccine ( season) 511/10/2020, 01/29/2021, 1Breast cancer ofqmba2108/15/2025 08/15/2023, 07/24/2022, 07/28/2021, Additional history existsDepression Screen 6010/28/2024, 5Cervical cancer tkbpsy1402/07/2027HPV (without or with Pap)705/07/2022, 08/19/2019Pneumococcal 0-49 years Vaccine Ngcxiadaadnw89/09/2017Shingles jwqgfukCxpkbouhv41/21/2022, 06/16/2022Hepatitis A vaccineAged OutNo longer eligible based [...] PAPILLOMAVIRUS (HPV) DNA PROBE THIN PREP HIGH KGHARtqthko72/10/2022 8:18 AM EDT OFFICE MOVER XPYDFULGSwlcdnp31/10/2022 8:18 AM EDT HM FRQDONMAVWSNsfknza24/28/2021from Last 3 Months or Most Recently Relevant to Health Maintenance Results * Human papillomavirus (HPV) DNA probe thin prep high risk (02/07/2022 8:18 AM EDT)ComponentValueRef RangeTest MethodAnalysis TimePerformed AtPathologist SignatureSpecimen Description.GENITAL - NOT WEURMEQWR45/10/2022 8:18 AM EDT [facility] LABORATORIESHPV Sample.THIN PREP02/07/2022 8:18 AM EDInsportant HPV, Genotype 16Not DetectedNot Ytjprxkb88/10/2022 8:18 AM EDLabcyteHPV, Genotype 18Not DetectedNot Seiujmug32/10/2022 8:18 AM EDT [facility] LABORATORIESHPV, High Risk OtherNot DetectedNot Swwutgld95/10/2022 8:18 AM EDLabcyteHPV, Auipisxwbymebg93/10/2022 8:18 AM EDBuy Local [place] LABORATORIESComment: This test amplifies and detects DNA [...] Collection TimeReceived TimeSPECIMEN FROM GENITAL SYSTEM / Xpaldlk3502/07/2022 8:18 AM EDT Narrative Authorizing ProviderResult TypeResult StatusCarmen F Jeanmarie DOHEMATOLOGY ORDERABLESFinal ResultPerforming OrganizationAddressCity/State/ZIP CodePhone Number [facility] [address] [place] [address], [facility] [phone] [facility] [address] [id number] [phone] * OFFICE MOVER Cytology (02/07/2022 8:18 AM EDT)ComponentValueRef RangeTest Method Analysis TimePerformed AtPathologist SignatureCytology ReportINTERPRETATION Cervical material, (ThinPrep vial, Imaging-assisted review): Specimen Adequacy: ? Satisfactory for evaluation. ? -Endocervical/transformation zone component is absent. Descriptive Diagnosis: ? Negative for intraepithelial lesion or malignancy. ?? Merchandising Specialist: ?? KENYA BECERRA(ASCP) Electronically Signed Out ey02/10/2022 [...] Imaging-assisted review) Clinical History Postmenopausal Z01.419 Routine field clerk exam without abnormal findings Co-Test: ??ThinPrep Pap with high risk HPV testing LMP: ??05/19/2016 GYNECOLOGIC CYTOLOGY REPORT Patient Name: JOSE ALBERTO SALEEM Med Rec: [id number] Path Number: [id number] EUGENE ??LABORATORIES CONSULTING PATHOLOGISTS [facility] ANATOMIC PATHOLOGY [address] [place] [address]. ??[place], [place] [address] [facility] LABORATORIESSpecimen (Source)Anatomical Location / LateralityCollection Method / VolumeCollection TimeReceived TimeCERVICAL BLESDQID36/10/2022 8:18 AM EDT02/08/2022 8:18 AM EDT Narrative Authorizing ProviderResult TypeResult StatusCarmen F Deuce-Tello DO PATHOLOGY/CYTOLOGY ORDERABLESFinal ResultPerforming OrganizationAddress City/State/ZIP CodePhone Number [facility] [address] [place] [address], [facility] [phone] [facility] [address] [place] [address], [facility] [phone] * HM MAMMOGRAPHY (07/28/2021)Anatomical RegionLateralityModalityOther Narrative Authorizing ProviderResult TypeResult StatusCarmen F Deuce-Tello DOHEALTH MAINTENANCEFinal Result from Last 3 Months or Most Recently Relevant to Health Maintenance Insurance Advance Directives * Full Code (Latest Code Status on File) Date ActivatedDate InactivatedComments06/18/2023 1:21 PM06/18/2023 5:57 PM Care Teams Team MemberRelationshipSpecialtyStart DateEnd Date Ziggy Dejesus MD [address] [place] [address] PCP - GeneralFamily Czgxfcsn98/19/19
--- OUTSIDE RECORDS SUMMARY | 2025-07-29 14:42 | XMS_ITS | Clinical Summary ---
Author Organization [facility] Address [address] [place] [address] Care Team Providers Care Cone Picker Name Role Phone Ziggy Dejesus MD Primary Care Provider [phone] Allergies Active AllergyReactionsCriticalityNoted DateCommentsBaclofenAnaphylaxis,Other, Shortness of ihlsxeMnny21/10/2017 bradypnea FenofibrateGI tewsmsjnzcy63/22/2009 Other reaction(s): (Louis) 08/08/2011 Other reaction(s): Intolerance elevated liver enzymes elevated liver enzymes Other reaction(s): (Louis) 08/08/2011 Fenofibrate MicronizedGI nuxxjqakmsi40/22/2009 elevated liver enzymes Other reaction(s): Intolerance elevated liver enzymes FgcifdfxzfsEpgsevx17/14/2006 PT TOLERATES CRESTOR Latex, Natural RubberAnaphylaxis,Shortness of qxvksfZgpk91/16/2006Levofloxacin Other,Wdcxmigq42/10/2017 thrush Other Reaction(s): Other (See Comments), thrush thrush PenicillinsAnaphylaxis,Hives,Rash,Shortness of becrqyEpcv40/14/2006 PhenazopyridineGI intolerance,Nausea And Fpybnyap80/14/2006RosuvastatinGI intolerance,NtmhbPtygnr13/10/2017 Elevated liver enzymes, pt cannot take this in addition with fenofibrate FskunhzdbhoUbtdwmf52/14/2006 PT TOLERATES CRESTOR Sulfa (Sulfonamide Antibiotics)Hives,Shortness of caqgicNdpr64/14/2006 Other Reaction(s): Other (See Comments) Sulfamethoxazole-GgkoqvvefpdnCfzvmSreflk70/19/9500NgnhjqesacHovzQex38/04/2023 PihzgvjtswzeYsqva46/01/2023 Other reaction(s): Hives Medications MedicationSigDispense QuantityRefillsLast FilledStart [...] NOSTIRL TWICE A DAY. for 90Active HYDROcodone-acetaminophen ([place]owa) 5-325 mg tablet 01/03/2025tive hyoscyamine (Anaspaz,Levsin) 0.125 mg tablet 2 tablet as needed Orally every 4 hrs PRN abd pain04/28/2024ctive ondansetron ODT (Zofran-ODT) 4 mg disintegrating tablet 01/03/2025tive hydroCHLOROthiazide (HYDRODiuril) 25 mg tablet 03/16/2025tive pancrelipase, Vls-Zlrw-Wxnm, (Creon) 12,000-38,000 -60,000 unit capsule Indications:Pancreatic insufficiency1 capsule before snack. 90 capsule 08/19/2025Active pancrelipase, Lmg-Ecte-Zhoh, (Creon) 36,000-114,000- 180,000 unit capsule,delayed release(DR/EC) capsule Indications:Pancreatic insufficiencyTake 1 capsule by mouth with breakfast, with lunch, and with evening meal. Take 1 capsule before each meal 270 capsule /510/6Active pancrelipase, Nma-Qaxe-Dkui, (Creon) 36,000-114,000- 180,000 unit capsule,delayed release(DR/EC) capsule Indications:Pancreatic insufficiencyTake 1 capsule by mouth with breakfast, with lunch, and with evening meal. Take 1 capsule before each meal 270 capsule Discontinued(Reorder) Active Problems ProblemNoted DateDiagnosed DateBMI 30.0-30.9,adult09/05/2024S/P PTCA (percutaneous transluminal coronary angioplasty)09/05/2024Statin intolerance 09/05/2024ngina xauzmbku95/28/2024 Overview (02/26/2024): non for 4 yrs Cellulitis of right foot due to methicillin-resistant Staphylococcus aureus 02/26/2024 Overview (02/26/2024): nare after surgery Huybdrpiczbuitmnqash75/28/2024Peripheral edema02/26/20241797Evlckzypcp73/28/2024 Atherosclerosis of coronary artery of bois forte heart without angina pectoris 08/09/2023Essential hypertension, hunuou7308/09/2023History of coronary artery bypass graft08/09/2023Ischemic rzjytwinfigait16/09/2023aroxysmal SVT (supraventricular tachycardia)08/09/2023Ventricular septal zoefsg3108/09/2023 Chronic ecsynyygwqqc58/04/2023ry nose03/20/2022ther chronic allergic dgfmgibiumqjzt11/14/2021Morbid jjkgwfu3701/31/2018S/P nasal frtjkegjbbp76/14/2017 Acute myocardial tzuqverooo60/10/2017Clotting oujendei87/10/2017Diabetes 07/10/2017GERD (gastroesophageal reflux disease)07/10/2017Heart disease 07/10/2017Kidney cbmnkab9607/10/2017 Encounters DateTypeDepartmentCare LiobIktaxeojzet11/23/2025Orders Only [facility]enter[address] [place] [phone] Claribel Jacobo, LUCIEN Pancreatic hmgqekwidywji74/19/2025Telephone [facility] [address] [place] [phone] Gisela Arellano RN 05/19/2025Orders Only [facility] [place] [phone] Roberto Watson MD Pancreatic dsfmoewmkvaxu69/14/2025Telephone [address] [phone] Nicole Locke MA 05/14/2025[address] [phone] Nicole Locke MA 05/14/2025Telephone [address] [place] [phone] Roberto Watson MD 05/14/2025Telephone [facility] [address] [place] [phone] Gisela Arellano, LUCIEN 05/08/2025 10:30 AM EDTFollow-Up [address] [phone] Chauncey Cooper MD Pancreatic insufficiency (Primary Dx); Sphincter of Oddi dysfunctionfrom Last 3 Months Immunizations ImmunizationAdministration DatesNext DueInfluenza, High Dose Seasonal, Preservative Free2022Influenza, Gsswwcvcpnf56/30/2021Influenza, injectable, MDCK, preservative free, gzcbhvxasaqr12/03/2021,07/26/2017Influenza, injectable, quadrivalent, preservative free06/05/2023,06/16/2022,2020, 07/23/2018Influenza, seasonal, trzcgeeybd59/15/2014Influenza, seasonal, injectable, preservative free, 6 moonths & older06/05/2024,07/03/2015Novel azcqrtquy-K8R4-90, preservative-free07/29/2009Pfizer SARS-CoV-2 Vaccination 1Pneumococcal Polysaccharide RCA637305/09/2017Zoster, Recombinant 08/21/2022,06/16/2022 Family History Medical HistoryRelationNameCommentsHyperlipidemiaBrother 1BudHeart [...] partner or ex-partner?No02/27/2024HQ-2 AnswerDate RecordedPatient Health Questionnaire-2 Luhdx0704 CommentsUnknownSex and Gender InformationValueDate RecordedSex Assigned at Pcrnrj4302/27/2024 10:42 AM EDTLegal SgeSysszx08/13/2023 9:56 AM ESTGender EdktnyjuWfpvvj85/29/2024 10:42 AM EDTSexual OrientationHeterosexual or Straight 02/27/2024 10:42 AM EDT Last Filed Vital Signs Vital SignReadingTime TakenCommentsBlood Rrabrbqg105/8008 10:34 AM EDT Vimfl270505/08/2025 10:34 AM EDTTemperature--Respiratory Isou336305/08/2025 10:34 AM EDTOxygen Saturation--Inhaled Oxygen Concentration--Djlobg40.6 kg (182 lb) 05/08/2025 10:34 AM RWXDqjscb069 cm (5' 3 )05/08/2025 10:34 AM EDTBody Mass Index32.24005/08/2025 10:34 AM EDT Plan of Treatment Health MaintenanceDue DateLast DoneCommentsCT Sbcijrmcqboc1964Colonoscopy 1964Colorectal Cancer Gdztnwcdv1964FIT-DNA1964FIT1964 FOBT06/09/19641892Hdhiatlciowey1964Diabetes: Retinopathy Tnhfsimdv61/09/1974 Depression Tofpzejby26/09/1976Diabetes: Urine Protein Xezzexejk01/09/1983Adult Gtzerba7906/09/1986Pneumococcal Vaccine: Pediatrics (0 to 5 Years) and At-Risk Patients (6 to 64 Years) (2 of 2 - PCV)Diabetes: Hemoglobin A1C/6204Jmftxycnu89/24/369938/2Pap Smear02/07/2025 02/07/2022OVID-19 Vaccine ( season)/10/2020, 01/29/2021, 01/08/2021Influenza Vaccine (#1)509/01/2024, 06/05/2023, 06/16/2022, Additional history existsCervical Cancer Fuemrgzjb27/10/2027HPV/Hkdekj1502/07/2027 02/07/2022Zoster XuuotkalDtxeyhqos76/21/2022, 06/16/2022HIB VaccinesAged OutNo longer eligible based on [...] complete this topic Procedures Procedure NamePriorityDate/TimeAssociated DiagnosisCommentsHEMOGLOBIN D6REsiyifi 02/27/2024 12:18 PM EDT Elevated LFTs from Last 3 Months or Most Recently Relevant to Health Maintenance Results * Hemoglobin A1c (02/27/2024 12:18 PM EDT)ComponentValueRef RangeTest Method Analysis TimePerformed AtPathologist SignatureHemoglobin A1C5.14.0 - 6.0 % 02/27/2024 2:02 PM [facility] ([facility])Estimated Average Zavdbyt522 mg/dL02/27/2024 2:02 PM [facility] ([facility])Specimen (Source) Anatomical Location / LateralityCollection Method / VolumeCollection Time Received TimeBloodVenous blood specimen / UnknownVenipuncture / Unknown 02/27/2024 12:18 PM EDT02/27/2024 12:18 PM EDT Narrative Authorizing ProviderResult TypeResult StatusYaseen Sherita MDLAB BLOOD ORDERABLESFinal ResultPerforming OrganizationAddressCity/State/ZIP CodePhone Number [facility] ([facility]) [address] [place], [place] [phone] from Last 3 Months or Most Recently Relevant to Health Maintenance Insurance Care Teams Team MemberRelationshipSpecialtyStart DateEnd Date Ziggy Dejesus MD [address] [place] [address] [facility]02/18/24
--- OUTSIDE RECORDS SUMMARY | 2025-07-29 14:42 | XMS_ITS | Clinical Summary ---
Author Organization [facility] Address [address] [place] [address] Care Team Providers Care Control Clerk Name Role Phone Ziggy Dejesus MD Primary Care Provider [phone] Allergies Active AllergyReactionsCriticalityNoted DateCommentsLatexAnaphylaxis,Shortness of ZbbzquYvzt39/16/2006Fluvastatin Urgyeg8403/14/2006 PT TOLERATES CRESTOR KvrdjpadpdeKwwmv18/14/2006Phenazopyridine Hcl03/14/2006Sulfa (Sulfonamide Antibiotics)Hives03/14/2006Fenofibrate TjwmemaierFgtznchdyru91/22/2009 elevated liver enzymes Yxlfeucigqc06/14/2006 PT TOLERATES CRESTOR Medications MedicationSigDispense QuantityRefillsLast FilledStart [...] esters(LOVAZA 1 GRAM CAP) Indications:Other and unspecified qpxdcdvyaapdnf9tqhm twice daily 0 ctive ASPIRIN 325 MG [...] Active Problems ProblemNoted DateDiagnosed DateOther and unspecified zxglxiyrimyscg85/22/2009 Family History Medical HistoryRelationCommentsCoronary Artery DiseaseFatherCoronary Artery DiseaseMother3 and 4 vessel CABG twiceCoronary Artery DiseasePaternal Uncle 1 Coronary Artery DiseasePaternal Uncle 2RelationStatusCommentsFatherMother Paternal Uncle 1Paternal Uncle 2 Social History Tobacco UseTypesPacks/DayYears UsedDateSmoking Tobacco: NeverAlcohol UseStandard Drinks/WeekCommentsYes0 (1 standard drink = 0.6 oz pure alcohol)special occassionsCommentsNoSex and Gender InformationValueDate RecordedSex Assigned at BirthNot on fileLegal YcxLzrjqj40/02/2012 9:48 AM ESTGender Identity Not on fileSexual OrientationNot on fileOccupationIndustryJob Start DateJob End DateRNNot on fileNot on fileNot on file Last Filed Vital Signs Vital SignReadingTime TakenCommentsBlood Mtacgmav684/70003/24/2010 11:56 AM EDT (from Extended Vitals)Vzzkx042003/24/2010 11:56 AM EDT(from Extended Vitals) Ephczalhenm35 ??C (98.6 ??F)03/23/2006 11:00 AM EDTRespiratory Qekl155603/23/2006 11:00 AM EDTOxygen Isakfgritu38%03/23/2006 11:00 AM EDTInhaled Oxygen Concentration--Xqzchk19.7 kg (200 lb)03/24/2010 11:53 AM SFYDqonai739 cm (5' 3 ) 03/24/2010 11:53 AM EDTBody Mass Index35.43003/24/2010 11:53 AM EDT Plan of Treatment Health MaintenanceDue DateLast DoneCommentsAnxiety Ravqfallk69/09/1982Depression Afnyuuljb79/09/1982HIV Nknimklug18/09/1982Hepatitis C Zhsnenfef32/09/1982 DTaP,Tdap,Td Vaccine (1 - Tdap)1983Cervical Cancer Jzdokmlfo77/09/1985 Mammogram Sgyqmfcyn89/09/2004CT Dacevvhupsjf60/09/2009Cologuard (FIT-DNA) 06/09/20093208Rxbplflnnvi70/09/2009Colorectal Cancer Eurexskdg66/09/2009Fecal Occult Blood06/09/20098565Qqlhrlnmhqakj26/09/2009Diabetes Uoawrjhim17, 03/22/2009, 03/23/2006, Additional history existsLipid Lxibbkxfm61/22/2014 03/22/2009, 03/22/2009, 03/15/2006Pneumococcal Vaccine: 50+ (1 of 1 - PCV) 2014Shingrix Vaccine (1 of 2)2014Covid-19 Vaccine (1 - 2024- season)2025Influenza Vaccine (#1)2025RSV Vaccine (1 - 1-dose 75+ series)2039 Procedures Procedure NamePriorityDate/TimeAssociated DiagnosisCommentsHEMOGLOBIN S5LVnejbdr 03/22/2009 12:34 PM EDT Hyperlipidemia Nec/Nos Impaired Fasting Glucose LIPID PANEL, QMOFXIFZsgygll42/22/2009 12:34 PM EDT Hyperlipidemia Nec/Nos from Last 3 Months or Most Recently Relevant to Health Maintenance Results * (ABNORMAL) LIPID PANEL BASIC (03/22/2009 12:34 PM EDT)ComponentValueRef Range Test MethodAnalysis TimePerformed AtPathologist IkskbiqhhZecoinerygrc3843(H)30 - 149 mg/dLTHE [facility] MAIN LABORATORYComment: Patient may be at risk for acute pancreatitis due to marked hypertriglyceridemia. Cholesterol, Bltms483(H)100 - 199 mg/dLTHE [facility] MAIN LABORATORYHDL Iynuhyerxfm56(L)>55 mg/dLADENA REGIONAL [facility] LABORATORYVLDL CholesterolUnable to calculate due to increased Triglycerides. See LDL-Chol, Direct.6 - 40 mg/dL [facility] MAIN LABORATORYLDL Cholesterol, CalculatedUnable to calculate due to increased Triglycerides. See LDL-Chol, Direct.60 - 129 mg/dLTHE [facility] MAIN LABORATORYFasting Unhw57nnhILDKCHLQN CLINIC MAIN LABORATORYTC:HDL Ratio11.84(H)1.00 - 5.00[facility] MAIN LABORATORYLDL:HDL RatioUnable to calculate0.50 - 3.55[facility] MAIN LABORATORYNon HDL Yzchfewdidb836(H)90 - 159 mg/dLADENA REGIONAL [facility]ENTER LABORATORYSpecimen (Source)Anatomical Location / LateralityCollection Method / VolumeCollection TimeReceived TimeBlood specimen (specimen)BLOOD SPECIMEN / Mfdomwi9903/22/2009 12:34 PM EDT Narrative Authorizing ProviderResult TypeResult StatusBetjoni Park MDLABORATORYFinal ResultPerforming OrganizationAddressCity/State/ZIP CodePhone Number [facility] [address] [place] [address] * HGB A1C (03/22/2009 12:34 PM EDT)ComponentValueRef RangeTest MethodAnalysis TimePerformed AtPathologist SignatureHemoglobin A1C5.64.0 - 6.0 %[facility] LABORATORYSpecimen (Source)Anatomical Location / Laterality Collection Method / VolumeCollection TimeReceived TimeBlood specimen (specimen)BLOOD SPECIMEN / Ptvbgmc9703/22/2009 12:34 PM EDT Narrative Authorizing ProviderResult TypeResult StatusBetjoni Park MDLABORATORYFinal ResultPerforming OrganizationAddressCity/State/ZIP CodePhone Number [facility] [address] [place] [address] from Last 3 Months or Most Recently Relevant to Health Maintenance Insurance * Guarantor: Tiarra Carney TypeRelation to PatientDate of BirthPhone Billing RoynscxXoqgwdJfmd1965 [address] [place] [address] Care Teams Team MemberRelationshipSpecialtyStart DateEnd Ziggy Dejesus MD [address] [place] [address] [facility] - General03/15/06
--- OUTSIDE RECORDS SUMMARY | 2025-07-29 14:42 | XMS_ITS | Clinical Summary ---
Author Organization [facility] Address [address] [place] [address] Care Team Providers Care Clock Mechanic Name Role Phone Ziggy Dejesus MD Primary Care Provider [phone] Allergies Active AllergyReactionsCriticalityNoted DateCommentsBaclofenOther,Shortness of szmwxwCtcb41/10/2017 bradypnea FenofibrateGI zkcwvwdywgu79/22/2009 Other reaction(s): (Louis) 08/08/2011 Other reaction(s): Intolerance elevated liver enzymes elevated liver enzymes Hmltfhnokpl06/14/2006 PT [employer]ER[employer]OR LatexAnaphylaxis,Shortness of ajidkdCmfu55/16/7236Yvvwcblhtlak02/10/2017 Other Reaction(s): Other (See Comments), thrush thrush PenicillinsHives,IcdbMmk4503/14/2006PhenazopyridineGI iitwkhpnviq36/14/2006Sulfa AntibioticsHives,Shortness of yjtnzjPczl26/14/2006 Other Reaction(s): Other (See Comments) Sulfamethoxazole-MmysxniypzavQzentAltlbq72/19/6682WwbinbrmnjBwktFuk25/04/2023 Menfrwadsbjv34/01/2023 Other reaction(s): Hives Medications MedicationSigDispense QuantityRefillsLast FilledStart [...] Problems No known active problems Encounters DateTypeDepartmentCare TjemJjwaifeiyof46/23/2025 10:15 AM EDTOffice Visit [facility] [address] [facility] [place] [phone] Jr. Torsten Sinha, DO Tendonitis of wrist, right; Right wrist pain06/23/2025amboo flowsheet [facility] [address] [place] [address] Jr. Torsten Sinha, DO 06/23/20254202Kqblec58/16/2025 9:15 AM EDTAncillary Procedure [facility] [address] [facility] [address] [place] [address] Chronic pain of right wrist06/16/20256229Ygpczg52/15/1738Tbqycf72/02/2025 10:15 AM EDTOffice Visit [facility] [address] [place] [address] Jr. Torsten Sinha, Chronic pain of right wrist06/02/2025amb flowsheet [facility] [address] [facility] [place] [phone] Jr. Torsten Sinha, DO 06/02/20254671Stdoau48/27/2025 3:15 PM EDTProcedure Visit [facility] [address] [place] [address] Corbin Louie MD Numbness (Primary Dx); Paresthesias; Carpal tunnel syndrome, left05/27/20255786Xwspsw17/15/2025 11:55 AM EDTAncillary Procedure [facility] [address] [place] [phone] 05/15/2025 11:30 AM EDTOffice Visit [facility] [address] [place] [phone] Arik Byrd PA Right wrist pain (Primary Dx); Arm weakness; Numbness; Arm pain, right; Ulnar neuropathy of right upper fimynkknp80/15/2025amboo flowsheet [facility] [address] [facility] [place] [phone] Arik Byrd PA 05/15/2025Travelfrom Last 3 Months Family History Medical HistoryRelationNameCommentsHeart diseaseFatherHeart diseaseMother RelationNameStatusCommentsFatherAliveMotherAlive Social History Tobacco UseTypesPacks/DayYears UsedDateSmoking Tobacco: NeverSmokeless Tobacco: Never Tobacco Cessation:Counseling Given: No Alcohol UseStandard Drinks/WeekCommentsNot Currently0 (1 standard drink = 0.6 oz pure alcohol)CommentsUnknownSex and Gender InformationValueDate Recorded Sex Assigned at TorucHvbrqs03/13/2023 3:27 PM ESTLegal ZqqJvgdmm72/15/2023 7:08 PM EDTGender RlmrhcvaNksmiu90/13/2023 3:27 PM ESTSexual OrientationNot on file Last Filed Vital Signs Vital SignReadingTime TakenCommentsBlood Zhabffey845/7210 12:00 PM EDT Pulse--Temperature--Respiratory Rate--Oxygen Saturation--Inhaled Oxygen Concentration--Utcjit96.9 kg (174 lb)05/15/2025 11:45 AM FEUQkhenl746 cm (5' 3 ) 05/15/2025 11:45 AM EDTBody Mass Index30.8205/15/2025 11:45 AM EDT Plan of Treatment Health MaintenanceDue DateLast DoneCommentsCT Mibjnnleulsm1964Colonoscopy 1964Colorectal Cancer Jdwvbaizz1964FIT-DNA1964FIT1965 FOBT06/09/19648308Ohjlcukwfirxt1964MMR Vaccines (1 of 1 - Standard series) 1965DTaP/Tdap/Td Vaccines (1 - Tdap)06/09/19711886Binjmumwv14/15/2024 08/15/2023, 07/24/2022, 10/28/2020, Additional history existsPap Smear02/07/2025 02/07/2022, 02/07/2022, 08/19/2019COVID-19 Vaccine ( season) /10/2020, 01/29/2021, 01/08/2021Influenza Vaccine (#1)2025 06/05/2024, 06/05/2023, 06/16/2022, Additional history existsCervical Cancer Qnsvyhczn58/10/2027HPV/Rhbtww87, 02/07/2022, 08/19/2019HIB VaccinesAged OutNo longer eligible based on patient's age to complete this topic HPV VaccinesAged OutNo longer eligible based on patient's age to complete this topicHepatitis A VaccinesAged OutNo longer eligible based on patient's age to complete this topicHepatitis B VaccinesAged OutNo longer eligible based on patient's age to complete this topicIPV VaccinesAged OutNo longer eligible based on patient's age to complete this topicMeningococcal B VaccineAged OutNo longer eligible based on patient's age to complete this topicMeningococcal VaccineAged OutNo longer eligible based on patient's age to complete this topicPneumococcal Vaccine: Pediatrics (0 to 5 Years) and At-Risk Patients (6 to 64 Years)Aged Out No longer eligible based on patient's age to complete this topicRotavirus VaccinesAged OutNo longer eligible based on patient's age to complete this topic Procedures Procedure NamePriorityDate/TimeAssociated DiagnosisCommentsMR WRIST RIGHT WO IV PPSIKXTBFcmutjz96/16/2025 9:59 AM EDT Chronic pain of right wrist XR WRIST 1-2 VIEWS JTZDPBhfbiuh34/15/2025 11:53 AM EDT Right wrist pain from [...] BY: Wilder Arango MD Authorizing ProviderResult TypeResult StatusJrFawad Sinha [facility] MRI PROCEDURESFinal Result * XR wrist 1 [...] with minimal degenerative changes. Authorizing ProviderResult TypeResult StatusMalilli Byrd [facility] XR PROCEDURES Final Result from Last 3 Months Insurance Care Teams Team MemberRelationshipSpecialtyStart DateEnd Ziggy Dejesus MD [address] [place] [phone] [facility]02/13/25
--- OUTSIDE RECORDS SUMMARY | 2025-07-29 14:42 | XMS_ITS | Clinical Summary ---
Author Organization [facility] Address [id number] [place] [address] Care Team Providers Care Lace Tearing Supervisor Name Role Phone Ziggy Dejesus MD Primary Care Provider [phone] Allergies Active AllergyReactionsCriticalityNoted DateCommentsBaclofenOther (See Comments) 07/10/2017 bradypnea Fenofibrate Wehxbngtxt20/22/2009 Other reaction(s): Intolerance elevated liver enzymes CpwqjOslttfdjnwbJlbh54/07/2017LevofloxacinOther (See Comments)07/10/2017 thrush RwwhtpdjphiLncdf05/14/2006Phenazopyridine HclNausea And Qoiazhrm18/14/2006 RosuvastatinOther (See Comments)07/10/2017 Elevated liver enzymes, pt cannot take this in addition with fenofibrate Sulfa (Sulfonamide Antibiotics)Hives03/14/20069901RstfokxqdaNifoCxc39/04/2023 Medications MedicationSigDispense QuantityRefillsLast FilledStart DateEnd DateStatus aspirin 81 mg Take 1 tablet (81 mg total) by mouth in the morning.Active RABEprazole (ACIPHEX) 20 mg EC tablet Take 1 tablet (20 mg total) by mouth in the morning and 1 tablet (20 mg total) before bedtime.Active sod goeww-qaqacm-hpcopy bottle (NEILMED SINUS RINSE COMPLETE) packet with [...] (three) times a day with meals. Active mvqqpfrz-eiyq-PU-calcium &mins (THERAGRAN-M) 9 mg iron-400 mcg tablet [...] in the morning. 16 g ctive vit C,L-Dl-mnixc-lutein-zeaxan (PRESERVISION AREDS-2) 250-90-40-1 mg capsule Take 2 [...] with depression.Active Active Problems ProblemNoted DateDiagnosed DateDry nose03/20/20225120Xtlbdeghvv14/14/2021Other chronic allergic mcszhesoybpfry23/14/2021/P nasal rgvnonkimzn56/14/2017Clotting goufbibo16/10/6849Sssovyed51/10/2017GERD (gastroesophageal reflux disease) 07/10/2017Heart eaqyegb7907/10/20174399Mgqarijelpgo94/10/2017Kidney jrdxhuy5707/10/2017 Acute myocardial llzulotmda65/10/2017 Immunizations ImmunizationAdministration DatesNext DueCOVID-19, mRNA, LNP-S, PF, 30mcg/0.3mL Dose01/08/2021 Family History Medical HistoryRelationNameCommentsCOPDFatherCoronary artery diseaseFather Peripheral vascular diseaseFatherAnemiaMotherMomEndometrial cancerMotherMomHeart diseaseMotherMomHypertensionMotherMomBreast cancerNeg HxRelationNameStatus CommentsFatherDeceasedMotherMomAlive Social History Tobacco UseTypesPacks/DayYears UsedDateSmoking Tobacco: NeverSmokeless Tobacco: Never Tobacco Cessation:Counseling Given: Not Answered Alcohol UseStandard Drinks/WeekCommentsNo0 (1 standard drink = 0.6 oz pure alcohol)PHQ-2AnswerDate RecordedTotal Nhjbn1611ChildcareAnswerDate CqrikaunBiluixrlnOdvbeqq43/04/2019EmploymentAnswerDate RecordedEmploymentUnknown 03/04/2019Hunger ScreeningAnswerDate RecordedWithin the past 12 months we worried whether our food would run out before we got money to buy more.Never True02/29/2024Within the past 12 months the food we bought just didn't last and we didn't have money to get more.Never True4Purpose - LifeAnswerDate RecordedPurpose and direction in kglqSxazwhb10/12/2021CommentsNoSex and Gender InformationValueDate RecordedSex Assigned at BirthNot on fileLegal Sex Rqmrmt7405/06/2015 11:31 AM EDTGender IdentityNot on fileSexual OrientationNot on file Last Filed Vital Signs Vital SignReadingTime TakenCommentsBlood Shqeztmi703/7306 12:01 PM EDT Xisuw945303/06/2024 12:01 PM JQASaognysgush57.1 ??C (97 ??F)03/06/2024 12:01 PM EDTRespiratory Fajk960603/06/2024 12:01 PM EDTOxygen Tduvicuyrw57%03/06/2024 12:01 PM EDTInhaled Oxygen Concentration--Dmtpcn96.8 kg (167 lb)02/29/2024 11:15 AM TCIDidbff587 cm (5' 3 )02/29/2024 11:15 AM EDTBody Mass Index29.58002/29/2024 11:15 AM EDT Plan of Treatment Health MaintenanceDue DateLast DoneCommentsDepression Azuyflalr79/09/1976 DTaP,Tdap and Td Vaccines (1 - Tdap)1983Pap Smear/07/2022, 02/07/2022, 08/19/2019Adult BMI Upcuzioup48/Tobacco Screening /OVID-19 Vaccine ( - season)/10/2020, 01/29/2021, 01/08/2021Influenza Rvxcsmr90/01/2024, 06/05/2023, 06/16/2022, Additional history existsZoster (Shingles) VaccineCompleted 08/21/2022, 06/16/2022 Medical Devices ImplantedTypeAreaManufacturerDevice IdentifierShelf Expiration DateModel / Serial / LotTissue Alloderm Nonmesh 2x4cm - Sna - [id number] Implanted:Qty: 1 on 09/06/2017 [facility]/20/2018102009 / NA / [id number] Iol Ultrasert 17.0d - [id number] - [id number] Implanted:Qty: 1 on 11/14/2018 [facility] [employer]09/30/2020AU00T0 17.0 / [id number] / NASinus Implant Propel Mini - Sna - [id number] Implanted:Qty: 1 on 01/03/2018 by Devaughn Messer MD PhD at [facility] ImplantNoseINTERSECT ENT INC03/06/201860011 / NA / [id number] Implant Propel - Sna - [id number] Implanted:Qty: 2 on 01/03/2018 [facility] NoseINTERSE[employer] INC02/15/353670344 / NA / [id number] Restor Implanted:Qty: 1 on 11/05/2018 [facility] [employer] Inc11/29/2019SV25T0 / [id number] / NA Insurance Care Teams Team MemberRelationshipSpecialtyStart DateEnd Ziggy Dejesus MD [facility]02/22/17
--- OUTSIDE RECORDS SUMMARY | 2025-07-29 14:42 | XMS_ITS | Encounter Summary ---
Author Organization [facility] Address [address] [place] [address] Care Team Providers Care Logistic Manager Name Role Phone Ziggy Dejesus MD Primary Care Provider Encounter Details DateTypeDepartmentCare Team (Latest Contact Info)Fxikcfhckqr20/23/2025Orders Only [facility] [place] [phone] Claribel Jacobo RN Pancreatic insufficiency Social History Tobacco UseTypesPacks/DayYears UsedDateSmoking Tobacco: NeverPassive Smoke Exposure: NeverSmokeless Tobacco: NeverAlcohol UseStandard Drinks/WeekComments Never0 (1 standard drink = 0.6 oz pure alcohol)Humiliation, Afraid, Rape, and Kick questionnaireAnswerDate RecordedWithin the last year, have you been afraid of your partner or ex-partner?No02/27/2024Within the last year, have you been humiliated or emotionally abused in other ways by your partner or ex-partner?No 02/27/2024Within the last year, have you been kicked, hit, slapped, or otherwise physically hurt by your partner or ex-partner?No02/27/2024Within the last year, have you been raped or forced to have any kind of sexual activity by your part ner or ex-partner?No4PHQ-2AnswerDate RecordedPatient Health Questionnaire-2 Ifyer5274CommentsUnknownSex and Gender InformationValueDate RecordedSex Assigned at BrgzoEthnfz13/29/2024 10:42 AM EDT Legal LjaCfyaaq72/13/2023 9:56 AM ESTGender PiozzbcyXufdnj67/29/2024 10:42 AM EDTSexual OrientationHeterosexual or Vuvxzoae71/29/2024 10:42 AM EDTdocumented as of this encounter Plan of Treatment Not on file documented as of this encounter Visit Diagnoses Diagnosis Pancreatic insufficiency Other specified disease of pancreas documented in this encounter Care Teams Team MemberRelationshipSpecialtyStart DateEnd Date Ziggy Dejesus MD [address] [place] [phone] PCP - [facility]02/18/24documented as of this encounter
--- OUTSIDE RECORDS SUMMARY | 2025-07-29 14:45 | XMS_ITS | CCD ---
Author Organization [facility] Care Team Providers Care Mechanical Integrity Specialist Name Role Phone UNKNOWN, PROVIDER Unavailable Unavailable ASHLEY GRIGSBY Unavailable Unavailable UNKNOWN, PROVIDER Unavailable Unavailable ASHLEY GRIGSBY Unavailable Unavailable Ashley Grigsby Primary Care Provider Ashley Grigsby Unavailable Unavailable Unavailable Ashley Grigsby MD Primary Care Provider [phone] Unavailable Unavailable Ashley Grigsby Primary Care Physician DR CELSO GARIBAY Admitting Unavailclaire GARIBAY, DR CELSO Orozco Attending Unavailabl e SEB, DR RAMIREZ Primary Care Unavailable PHOENIX, DR CELSO Orozco Consulting Unavailabl e DR ASHLEY GRIGSBY Primary Care Unavailable DR ASHLEY GRIGSBY Admitting Unavailable DR ASHLEY GRIGSBY Attending Unavailable DR ASHLEY GRIGSBY Consulting Unavailable MALU, DR RONAN Guzman Consulting Unavailable GENTRY HUERTA Consulting Unavailable KOO, INGA Consulting Unavailable MISC, [...] Unavailable MD Ashley Grigsby Primary Care Provider [phone] MD Evert Bruno Attending Provider Evert Bruno Unavailable MD Ashley Grigsby Primary Care Provider [phone] MD Evert Bruno Attending Provider Ashley Grigsby MD Primary Care Provider [phone] GABY PHILLIPS Admitting Unavail able GABY PHILLIPS Attending Unavail able ASHLEY GRIGSBY Primary Care Unavailable ASHLEY GRIGSBY Primary Care Unavailable Ashley Grigsby MD Primary Care Provider [phone] STEPHANIE BERGER Attending Unavailable ASHLEY GRIGSBY Referring Unavailable HOASHLEY Montelongo Primary Care Unavailable ASHLEY GRIGSBY M Referring Unavailable ASHLEY GRIGSBY Primary Care Unavailable ALASTAL, YASEEN S Admitting Unavailable ALASTAL, YASEEN S Attending Unavailable ASHLEY GRIGSBY Primary Care Unavailable MAGO MONAE Attending Unavailable ASHLEY GRIGSBY Primary Care Unavailable ALASTAL, YASEEN S Attending Unavailable ALASTAL, YASEEN S Referring Unavailable ASHLEY GRIGSBY Primary Care Unavailable Ashley Grigsby MD Primary Care Provider [phone] Lynnette Chapman MD Emergency Provider Donis Arroyo [...] Consulting Unavailab Toya Marsh Consulting Unavailable Jackie aDugherty Consulting Unavailable CELSO GARIBAY Attending Unavailable CELSO GARIBAY Referring Unavailable ASHLEY GRIGSBY Primary Care Unavailable CELSO GARIBAY Attending Unavailable ASHLEY GRIGSBY Primary Care Unavailable Ashley Grigsby MD Primary Care Provider [phone] Ashley Grigsby MD Primary Care Provider [phone] CHAUNCEY KIMBLE T Referring Unavailable ASHLEY GRIGSBY Primary Care Unavailable RADHA JAIMES Referring Unavailable ASHLEY GRIGSBY Primary Care Unavailable Ashley Grigsby MD Primary Care Provider [phone] NARANDI, ALI Attending Unavailable NAWRAS, ALI Referring Unavailable NAWRAS, ALI Referring Unavailable NAWRAS, ALI Attending Unavailable NAWRAS, CHAUNCEY Attending Unavailable RAJI BYRD Attending Unavailable RAJI BYRD Referring Unavailable RAJI BYRD Attending Unavailable RAJI BYRD Referring Unavailable BERAE Jefferson Attending Unavailable RAJI BYRD Referring Unavailable STEPJR. BHARAT, BRIDGETT Vann Attending Unavaila ble STEPJR. BHARAT, BRIDGETT Vann Referring Unavaila ble STEPJR. BHARAT, BRIDGETT Vann Attending Unavaila ble Santiago CARRILLO Attending Unavailable BARRY MARTINO Attending Unavailab le Allergies Allergy ClassificationReported Allergen(s)Allergy TypeDate of OnsetReaction(s) Facility (20 sources)Baclofen; Translations: [Baclofen TABS]Drug Cbievzq80-36-7851Rictz (See Comments), [place] ([place])Latex; Translations: [LATEX]Propensity to adverse reactions to drug 99-08-8508Chpybuyrobl, Shortness Of Breath, Anaphylaxis (disorder)[place], [place] (16 sources)Penicillins; Translations: [penicillins]Propensity to adverse reactions to qumv15-87-4199Bvrvt, Anaphylaxis (disorder)[place], [place] (3 sources)rosuvastatinDrug Pnnwhgd02-50-1786[facility] [place] [place] (20 sources)Sulfamethoxazole / Trimethoprim; Translations: [Bactrim TABS]Drug Rffoikk33-81-7632FairfGwqij [facility]- [place], [place] (11 sources)natural latex rubberAllergy to substance (finding)[facility] breathC[facility] 250 DO Work Phone: (11 sources)Penicillins; Translations: [Penicillins]Allergy to drug (finding) [facility] 250 DO Work Phone: (20 sources)rosuvastatin; Translations: [Crestor TABS]Drug Lmdfvpp85-69-2212 Elevated liver enzymes level (finding), Other, Other (See Comments)[facility] (16 sources)Sulfonamides (Antibiotic); Translations: [Sulfa Drugs]Allergy to drug (finding)[facility] (20 sources)levoFLOXacin; Translations: [levofloxacin]Drug Asszjtq86-15-5058 Other (See Comments), Candidiasis (disorder)[facility] [employer] Work Phone: (8 sources)Phenazopyridine; Translations: [PHENAZOPYRIDINE HCL]Drug Allergy 99-27-7629Qhasry And VomitingPremier Health Health Work Phone: (3 sources)Simvastatin; Translations: [SIMVASTATIN]Drug Ptlqmpg43-93-2098[facility] Work Phone: (15 sources)Sulfonamides (Antibiotic)Propensity to adverse reactions to drug 26-07-0644[place] (See Comments), Hives, [facility] breathC[facility] (12 sources)Tobramycin; Translations: [tobramycin]Drug Salwsoy08-27-0533Qkfwuxde of skin (disorder), [facility] (1 source)BaclofenDrug AllergyThe [facility] (1 source)LatexDrug allergy (disorder)[facility] (5 sources)levoFLOXacin; Translations: [Levaquin]Drug AllergythrushPremier Health [facility] (1 source)PenicillinsDrug allergy (disorder)[facility] (1 source)rosuvastatinDrug AllergyThe [facility] (1 source)Sulfonamides (Antibiotic)Drug allergy (disorder)[facility] (11 sources)rosuvastatin; Translations: [ROSUVASTATIN]Drug Upkzuxj79-45-1404 [facility]etMart[facility] (5 sources)Sulfamethoxazole; Translations: [sulfamethoxazole]Drug Allergy 43-08-4614Nrwav, Hives, ([place]) 08/08/2011[facility] (20 sources)Trimethoprim; Translations: [trimethoprim]Drug Bqrvmzs85-31-3737 Hives, Hives, ([place]) 08/08/2011[facility] (6 sources)Fenofibrate; Translations: [FENOFIBRATE]Drug Tmtxiwr02-62-4459([place]) 08/08/2011[facility] [employer] (3 sources)PenicillinDrug Allergy([place]) 08/08/2011[facility] [employer] Other (9 sources)Substance with sulfonamide structure and antibacterial mechanism of action (substance)Drug bccjywx90-97-7107Qwvxcywjl of breath, HivesNort [employer] Other (7 sources)PenicillinsPropensity to adverse reactions to gthv99-59-0918Ygslo, RashBON HEALTHSOUTH REHABILITATION HOSPITAL OF SOUTHERN [email or web address] (14 sources)TobramycinDrug Gwsvtpq09-33-3155HndxHDI [facility] (7 sources)Fenofibrate; Translations: [FENOFIBRATE MICRONIZED]Drug Allergy 73-61-3213C[facility] Repository (7 sources)Sulfonamides (Antibiotic); Translations: [SULFA (SULFONAMIDE ANTIBIOTICS)]Propensity to adverse reactions to drug (disorder)27-79-8508Bokmvcy ReactionProMedica Repository (1 source)BaclofenDrug Julnspa18-92-0511WvshozcscMartins Ferry Hospital Repository (1 source)FenofibrateDrug Mwmccrx14-93-2222PikgovaqvMartins Ferry Hospital Repository (1 source)LatexDrug allergy (disorder)55-47-0681EclopmrkuMartins Ferry Hospital Repository (1 source)levoFLOXacinDrug Zckcwdt12-57-6939KrmzmezgpMartins Ferry Hospital Repository (1 source)PenicillinsDrug allergy (disorder)45-93-7761XtxpvcyieMartins Ferry Hospital Repository (13 sources)BaclofenDrug Iwcygrm79-39-4837Oenxw, Shortness of breathNOMS Healthcare (13 sources)FenofibrateDrug Gfcrbth30-27-3579ZJ intoleranceNOMS Healthcare (14 sources)fluvastatin; Translations: [FLUVASTATIN]Drug Qhzjfmi94-31-6956[facility] (13 sources)LatexAllergy to nlbjafdok00-25-1000Xedwlmhhyba, Shortness of breath [facility] (13 sources)PenicillinsDrug Dmwvaolxpqe97-08-5552Yyijf, RashNOMS Healthcare (14 sources)Phenazopyridine; Translations: [PHENAZOPYRIDINE]Drug Allergy 86-82-3582CW intoleranceNOMS Healthcare (1 source)natural latex rubber; Translations: [LATEX, NATURAL RUBBER]Propensity to adverse reactions to drug (disorder)03-75-1184UzjgllosnxMorrow [facility] Medications Current Medications MedicationDrug Class(es)DatesSig (Normalized)Sig (Original)amLODIPine 2.5 mg oral tablet (1 source)Dihydropyridine Calcium Channel Blockertake 1 tablet by mouth once dailyamLODIPine (Norvasc) 2.5 mg tablet Take 1 tablet (2.5 mg) by mouth once daily. Activeaspirin 81 mg delayed release oral tablet (20 sources)Platelet Aggregation Inhibitor, Nonsteroidal Anti-inflammatory Drug Start: 99-54-5598hfur 1 tablet by mouth once dailyaspirin 81 mg EC tablet Indications: Atherosclerosis of coronary artery bypass graft of [place] heart without angina pectoris , History of coronary artery bypass graft take 1 tablet by mouth once daily 90 tablet 3 09/25/2023 ActiveStart: 06-16-3383emjlpbk 81 mg, Refills(s) 0 Start Date: 10/27/19 Status: Orderedtake 1 tablet by mouth every twenty-four hoursAspirin 81 mg 1 tablet Orally Once a day for 30 day(s) Active ASPIRIN 81 PO Take by mouth 0 Activeatorvastatin 20 mg oral tablet (20 sources)HMG-CoA Reductase InhibitorStart: 10-27-2019 End: 03-77-7003ngtb 1 tablet by mouth once dailyatorvastatin (Lipitor) 20 mg tablet Indications: Mixed hyperlipidemia Take 1 tablet (20 mg) by mouth once daily. 90 tablet 3 05/14/2024 08/13/2024 Discontinued (Therapy completed)take 1 tablet by mouth at bedtimeLipitor 40 MG 1 tablet Orally at hs for 30 day(s) ActiveBariatric Multivitamins with 45 mg Iron (4 sources)Start: 84-21-8024Dwwzaftmp Multivitamins with 45 mg Iron Oral, Daily, [...] lactate 0.028 meq/ml injectable solution (1 source)Start: 55-78-6117ckvuhgwu ringers IV soln infusioncholecalciferol 0.125 mg oral capsule (3 sources)Vitamin Dtake 2 capsules by mouth four times weeklycholecalciferol, vitamin D3, (VITAMIN D3) 5,000 units capsule Take 10,000 Units by mouth 4 (four) times a week. Activecitalopram 40 mg oral tablet (20 sources)Serotonin Reuptake InhibitorStart: 82-71-1758jliq 1 tablet by mouth once dailycitalopram (CeleXA) 40 mg tablet Take 1 tablet (40 mg) by mouth once daily. 08/03/2024 ActiveStart: 62-99-2640fctk 4 tablets by mouth once daily Citalopram 10 mg tablet Active 40 MG PO Daily November 01, 2022 12:00amStart: 49-73-6153udje 10 mg by mouth once dailyCitalopram Active 10 MG PO Daily November 01, 2022 1:00am End: 96-50-0507kaptqrmhpp (CeleXA) 20 MG tablet Take 20 mg by mouth Activetake 2 tablets by mouth once dailycitalopram (CELEXA) 10 MG tablet Take 2 tablets by mouth daily 0 Activeclopidogrel 75 mg oral tablet (11 sources)P2Y12 Platelet InhibitorStart: 09-05-2024 End: 02-97-7984jryi 1 tablet by mouth once dailyclopidogrel (Plavix) 75 mg tablet Indications: Atherosclerosis of coronary artery bypass graft of [place] heart without angina pectoris , S/P PTCA (percutaneous transluminal coronary angioplasty) , History of coronary artery bypass graft Take 1 tablet (75 mg) by mouth once daily. 90 tablet 3 09/05/2024 09/05/2025 Activediclofenac sodium 0.03 mg/mg topical gel (16 sources)Nonsteroidal Anti-inflammatory DrugStart: 63-07-0107ibzrxqvaew sodium 3 % gel twice a day. 12/28/2020 ActiveStart: 62-83-5522Tugdbemxng Sodium 3 % External Gel APPLY SPARINGLY TO THE AFFECTED AREA(S) TWICE DAILY. Quantity: 0Refills: 0 Ordered: 28-Dec-2020 DO Start : 28-Dec-2020 Activedocusate sodium 100 mg oral capsule (17 sources)take 1 capsule by mouth twice dailydocusate sodium (Colace) 100 mg capsule Take 1 capsule (100 mg) by mouth 2 times a day. Activeergocalciferol 1.25 mg oral capsule (3 sources)Provitamin D2 CompoundStart: 52-25-8569pvtw 1 capsule by mouth two times weeklyVitamin D (Ergocalciferol) 24646 UNIT 1 capsule Orally TWICE a Week for 90 day(s) May, Activeestradiol 0.1 mg/ml vaginal cream (5 sources)EstrogenStart: 96-20-9560Eulmezzmg 0.01 % (0.1 mg/gram) cream Active 1 APPLICATOR VAGINAL Four times daily August 19, 2024 12:00amStart: 08-07-6006kblcwhuof (Estrace) 0.01 % (0.1 mg/gram) vaginal cream Insert into the vagina once daily. 07/23/2024 ActiveStart: 80-23-1000Owddmif 0.1 mg/g Cream See Instructions, 42.5 gm, Refill(s) 6, apply a pea-sized amount vaginally and around the urethra nightly x 3 weeks, then 3x per week thereafter, [facility] #[id number], 160, cm, 04/10/24 15:13:00 EDT, Height/Length Dosing, 74, kg, 04/10/24 15:13:00 EDT, Weight Dosing Start Date: 04/10/24 Status: Ordered fluticasone propionate 0.05 mg/actuat metered dose nasal spray (20 sources)CorticosteroidStart: 01-17-2024 End: 21-71-9270zztc 2 spray(s) nasal route in the morningfluticasone propionate (FLONASE) 50 mcg/actuation nasal spray Administer 2 sprays into each nostrilin the morning. 16 g 11 02/14/2024 ActiveStart: 58-34-7963Bvzkxusmhvq Propionate 50 mcg/actuation spray,suspension Active 1 SPRAY INTRANASAL Daily November 01, 2022 12:00amStart: 58-19-2830qfur 1 spray(s) nasal route twice dailyfluticasone (Flonase) 50 mcg/actuation nasal spray Administer 1 spray into affected nostril(s) 2 times a day. 11/26/2020 ActiveStart: 84-71-4959sqnu 1 spray(s) nasal route twice dailyFluticasone Propionate 50 MCG/ACT Nasal Suspension USE 1 SPRAY IN EACH NOSTRIL TWICE DAILY. Quantity: 0 Refills: 0 Ordered: 26-Nov-2020 DO Start : 26-Nov-2020 ActiveStart: 00-26-3834mkzmfyuconz 0.05 mg/inh Nasal [place] Refill(s) 0 Start Date: 04/30/20 Status: OrderedStart: 10-24-2017 End: 21-52-8627xhwp 2 spray(s) nasal route once dailyfluticasone (FLONASE) 50 mcg/actuation nasal spray Indications: Chronic pansinusitis Administer 2 sprays into each nostril daily. 16 g 10/24/2017 02/29/2024 Discontinued (Duplicate Listing)fluticasone 0.05 mg/inh Nasal [place] (3 sources)Start: 28-60-5245rmzskkwqezn 0.05 mg/inh Nasal [place] Refill(s) 0 Start Date: 04/30/20 Status: Orderedfurosemide 40 mg oral tablet (3 sources)Loop Diuretictake 1 tablet by mouth every twenty-four hoursLasix 40 MG 1 tablet Orally Once a day for 30 day(s) ActivehydroCHLOROthiazide 12.5 mg oral tablet (20 sources)Thiazide DiureticStart: 07-19-2023 End: 41-34-4611ogln 6.25 mg by mouth once dailyhydrochlorothiazide 12.5 mg Tab 6.25 mg = 0.5 tab(s), Oral, Daily, X 90 day(s), # 45 tab(s), Refills(s) 3, Pharmacy: [facility], 160, cm, 06/02/22 8:29:00 EDT, Height/Length Dosing, 61.2, kg, 06/02/22 8:29:00 EDT, Weight Dosing Start Date: 07/19/23 Stop Date: 07/13/24 Status:OrderedStart: 25-84-7387belr 6.26 mg by mouth once dailyHydrochlorothiazide 12.5 mg tablet Active 6.26 MG PO Daily November 01, 2022 12:00amStart: 95-16-0530hqnr 6.26 mg by mouth once daily Hydrochlorothiazide Active 6.26 MG PO Daily November 01, 2022 1:00amStart: 12-11-2020 End: 77-16-4718oive 0.5 tablet by mouth once dailyhydroCHLOROthiazide (HYDRODiuril) 12.5 mg tablet Take 0.5 tablets (6.25 mg) by mouth once daily. 08/13/2024 Discontinued (Discontinued by another clinician)Start: 43-17-2438jlts 1 tablet by mouth once dailyhydrochlorothiazide 12.5 mg Tab 12.5 mg = 1 tab(s), Oral, Daily, # 90 tab(s), Refills(s) 3, Pharmacy: [facility], 160, cm, 05/27/21 8:19:00 EDT, Height/Length Dosing, 61, kg, 05/27/21 8:19:00 EDT, Weight Dosing Start Date: 10/07/21 Status: Ordered ketorolac tromethamine 10 mg oral tablet (1 source)Nonsteroidal Anti-inflammatory Drug, Cyclooxygenase InhibitorStart: 06-18-2023 End: 03-85-5436firy 1 tablet by mouth every six hours [...] hydrochloride 500 mg oral tablet (3 sources)BiguanideStart: 57-62-3031feoq 1 tablet by mouth twice daily Glucophage XR 500 MG 1 tablet Orally twice a days for 90 days Nov, Active2 ml metoclopramide 5 mg/ml prefilled syringe (1 source)Dopamine-2 Receptor AntagonistStart: 06-18-2023 End: 73-33-450206 mg, IntraVENous, ONCE PRN, 1 dose, Starting on Sun06/18/23 at 1449, Until Sun06/19/23 at 1449, Nausea Secondary antiemetic therapy. PACU only 24 hr mirabegron 50 mg extended release oral tablet (5 sources)beta3-Adrenergic AgonistStart: 08-05-2024 End: 95-24-3395vwwa 1 tablet by mouth once dailymirabegron (Myrbetriq) 50 mg tablet extended release 24 hr 24 hr tablet Take 1 tablet (50 mg) by mouth once daily. 08/05/2024 ActiveStart: 04-10-2024 End: 80-00-4563uduv 1 tablet by mouth once dailymirabegron 25 mg oral tablet, extended release 25 mg = 1 tab(s), Oral, Daily, do not fill both mirabegron AND vibegron. only fill whichever has lower co-pay., X 30 day(s), # 30 tab(s), Refills(s) 11,Pharmacy: [facility] #[id number], 160, cm, 04/10/24 15:13:00 EDT, Height/Length Dosing, 74, kg, 04/10/24 15:13:00 EDT, Weight Dosing Start Date: 04/10/24 Stop Date: 04/05/25 Status: Orderedmometasone furoate 1 mg/ml topical cream (15 sources)CorticosteroidStart: 73-09-9881Rosgmjordd 0.1 % cream Active 1 APPLIC TOPICAL Daily August 19, 2024 12:00amStart: 76-45-3348xmdylvreri (Elocon) 0.1 % cream twice a day. 12/25/2020 ActiveStart: 69-16-1848Cohvmpsdgm Furoate 0.1 % External Cream APPLY SPARINGLY TO AFFECTED AREAS TWICE DAILY.(AM AND PM). Quantity: 0 Refills: 0 Ordered: 25-Dec-2020 DO Start : 25-Dec-2020 Activemontelukast 10 mg oral tablet (3 sources)Leukotriene Receptor Antagonisttake 1 tablet by mouth every twenty- four hoursSingulair 10 MG 1 tablet in the evening Orally Once a day for 30 day(s) ActiveMulti Vitamin+ (4 sources)Start: 64-24-1437Pjugw Vitamin+ Refill(s) 0 Start Date: 10/27/19 Status: OrderedMultiple Vitamin (MVI, BARIATRIC ADVANTAGE VITABAND, CHEW TAB) (1 source)take 1 tablet by mouth once dailyMultiple Vitamin (MVI, BARIATRIC ADVANTAGE VITABAND, CHEW TAB) Take 1 tablet by mouth daily 0 ActiveMultiple Vitamins-Minerals (PRESERVISION AREDS 2 PO) (1 source)Multiple Vitamins-Minerals (PRESERVISION AREDS 2 PO) Take by mouth 0 Czknoyfggbfwlm-gydz-II-calcium &mins (THERAGRAN-M) 9 mg iron-400 mcg tablet (3 sources)wdzuscvz-kkce-NA-calcium &mins (THERAGRAN-M) 9 mg iron-400 mcg tablet Take 1 tablet by mouth inthe morning. Activemultivit-min/ferrous fumarate (MULTI VITAMIN ORAL) (3 sources)take 1 tablet by mouth twice dailymultivit-min/ferrous fumarate (MULTI VITAMIN ORAL) Take 1 tablet by mouth 2 times a day. Activetake 1 tablet by mouth twice dailymultivit-min/ferrous fumarate (MULTI VITAMIN ORAL) Take 1 tablet by mouth 2 times a day. 0 ZvxuuoWyzltcacdoth-Lze-Grol-Fa-Vit K (Bariatric Multivitamins) 45 mg iron- 800 mcg-120 mcg Capsule (4 sources)Start: 81-77-5350ffqs 1 capsule by mouth twice daily Feuxmboxrjkw-Llz-Parg-Fa-Vit K (Bariatric Multivitamins) 45 mg iron- 800 mcg-120 mcg Capsule Active1 CAP PO Twice daily November 01, 2022 1:00amStart: 64-26-2423snjm 1 capsule by mouth twice jtjdmZxuyqtdcyywg-Pug-Uhyd-Fa-Vit K (Bariatric Multivitamins) 45 mg iron- 800 mcg-120 mcg Capsule Active1 CAP PO Twice daily November 01, 2022 12:00amMultivitamins (3 sources)Multivitamins Orally daily ActiveNIFEdipine 60 mg oral tablet (3 sources)Dihydropyridine Calcium Channel Blockertake 1 capsule by mouth once dailyProcardia 60 mg 1 capsule Orally daily for 30 day(s) Activenitroglycerin 0.4 mg sublingual tablet (18 sources)Nitrate VasodilatorStart: 12-25-2020 End: 57-51-8921jgxmaqoplgevg (Nitrostat) 0.4 mg SL tablet Indications: Atherosclerosis of coronary artery of [place] heart without angina pectoris, unspecified vessel or lesion type Place 1 tablet (0.4 mg) under thetongue every 5 minutes if needed for chest pain. 90 tablet 3 08/14/2023 ActiveNitrostat 0.4 MG 1 tablet under the tongue Sublingual as directed for 30 day(s) Activenystatin 100 unt/mg topical powder (17 sources)Polyene AntifungalStart: 75-16-5107cfmncjtm ([facility]) 100,000 unit/gram powder apply topically to affected area twice a day if needed ActiveStart: 24-99-3814RLXMOL powder 04/19/2018 Activeomega-3 acid ethyl esters (half-way) 1000 mg oral capsule (3 sources)take 2 capsules by mouth every twelve hoursLovaza 1 GM 2 capsules Orally Twice a day for 30 day(s) Active2 ml ondansetron 2 mg/ml injection (8 sources)Serotonin-3 Receptor AntagonistStart: 06-18-2023 End: mg, IntraVENous, ONCE PRN, 1 dose, Starting on Sun06/18/23 at 1449, Until Sun06/19/23 at 1449, Nausea Initial antiemetic therapy. PACU only Start: 73-40-4553fdwn 1 tablet by mouth every eight hours as needed for nausea ondansetron ODT (ZOFRAN ODT) 4 mg disintegrating tablet Dissolve 1 tablet (4 mg total) on tongue every 8 (eight) hours as needed for nausea for up to 10 doses. 10 tablet 10/04/2022 ActiveStart: 04-17-2018 End: 12-84-2015zwrq 1 tablet by mouth every eight hours as needed for nausea and vomitingOndansetron (Zofran Odt) 8 mg tablet,disintegrating Discontinued 8 MG PO Q8H as needed for nausea and vomiting 10 5 April 16, 2018 11:00pm April 20, 2018 11:00pm April 21, 2018 11:01pmpolyethylene glycol 3350 898061 mg / potassium chloride 2970 mg / sodium bicarbonate 6740 mg / sodium chloride 5860 mg / sodium sulfate 58809 mg powder for oral solution (3 sources)Osmotic LaxativeStart: 63-05-1563hgnc 236 g by mouth onceGolytely 236 GM as directed Orally the day prior to colonoscopy for 1 days Oct, Activeprasugrel 10 mg oral tablet (3 sources)P2Y12 Platelet Inhibitortake 10 mg by mouth once dailyeffient 10 mg once a day po ActivePreserVision AREDS (2 sources)Start: 59-15-3757JpuhjqBxtcvw AREDS Refill(s) 0 Start Date: 04/10/24 Status: Orderedpromethazine hydrochloride 25 mg oral tablet (7 sources)PhenothiazineStart: 18-86-8607czur 1 tablet by mouth every four hours as needed for nauseaPromethazine 25 mg tablet Active 25 MG PO Q4H as needed for Nausea November 01, 2022 12:00amtake 1 tablet by mouth every twelve hours Promethazine HCl 25 MG 1 tablet as needed Orally every 12 hrs ActiveRABEprazole sodium 20 mg delayed release oral tablet (20 sources)Proton Pump InhibitorStart: 50-10-5459gvep 1 mg by mouth once daily rabeprazole 20 mg oral enteric coated tablet mg tab(s), Oral, Daily, Refills(s) 0 Start Date: 05/27/21 Status: OrderedStart: 11-74-6646KMXWqoeepsf Sodium 20 MG Oral Tablet Delayed Release Quantity: 180 Refills: 0 Ordered: 27-Dec-2020 DO Start : 27-Dec-2020 CompleteStart: 64-50-8487muby 1 tablet by mouth twice daily Rabeprazole 20 mg tablet,delayed release (DR/EC) Active 20 MG PO Twice daily April 16, 2018 11:00pmtake 1 tablet by mouth three times dailyAciphex EC tablet Take 1 tablet (20 mg) by mouth 3 times a day. Activesod hdmdh-xufzni-rvssyq bottle (NEILMED SINUS RINSE COMPLETE) packet with rinse device nasal solution (3 sources)Start: 31-96-5054vvnt 1 dose nasal route once dailysod valdl-hvwolo-zocppw bottle (NEILMED SINUS RINSE COMPLETE) packet with rinse device nasal solution Indications: S/P nasal septoplasty Administer 1 packet into each nostril daily. 60 packet 09/13/2017 Active5 ml sodium chloride 9 mg/ml injection (9 sources)Start: 74-37-7147wvif 1 dose intravenously twice daily5-40 mL, IntraVENous, [...] 20 mL/lumen Pre-op (day of surgery) Start: 43-35-6431thyx 1 dose intravenously twice daily5-40 mL, IntraVENous, [...] Central Line = 20 mL/lumen PACU onlyStart: 79-05-5801bmlxsi chloride flush 0.9 % injection 5-40 mLStart: 88-17-8478KugesOEHtqc, at 5-250 mL/hr, PRN, if patient receiving [...] into rate field of order. PACU onlyStart: 58-72-2437ydwj 5-40 mL intravenously once as needed5-40 mL, [...] onlyStart: .9 % sodium chloride infusion Start: 45-00-1421akfmyq chloride flush 0.9 % injection 5-40 mLtamsulosin hydrochloride 0.4 mg oral capsule (20 sources)alpha-Adrenergic BlockerStart: 10-26-2020 End: 00-96-7904yfqn 1 capsule by mouth twice dailyFlomax 0.4 mg Cap 0.4 mg = 1 cap(s), Oral, BID, X 90 day(s), # 180 cap(s), Refills(s) 3, Pharmacy: [facility], 160, cm, 05/27/21 8:19:00 EDT, Height/Length Dosing, 61, kg, 05/27/21 8:19:00 EDT, Weight Dosing Start Date: 03/14/22 Stop Date: 03/09/23 Status: OrderedStart: 95-47-7907krta 1 capsule by mouth once daily tamsulosin (Flomax) 0.4 mg 24 hr capsule Take 1 capsule (0.4 mg) by mouth once daily. 10/26/2020 Activetake 1 capsule by mouth every twenty-four hours in the morningtamsulosin (Flomax) 0.4 MG 24 hr capsule Take 0.4 mg by mouth in the morning. ActivetraMADol hydrochloride 50 mg oral tablet (7 sources)Opioid AgonistStart: 50-73-9846ninq 1 tablet by mouth three times daily [...] Oral Tablet [Gemtesa] (1 source)Start: 04-10-2024 End: 67-14-3057vcby 1 tablet by mouth once dailyGemtesa 75 mg oral tablet 75 mg = 1 tab(s), Oral, Daily, X 30 day(s), # 30 tab(s), Refills(s) 11, Pharmacy: [facility] #[id number], 160, cm, 04/10/24 15:13:00 EDT, Height/Length Dosing, 74, kg, 04/10/24 15:13:00 EDT, Weight Dosing Start Date: 04/10/24 Stop Date: 04/05/25 Status: Orderedvit C,B-Uv-xjugp-lutein-zeaxan (PRESERVISION AREDS- 2) 250-90-40-1 mg capsule (1 source)vit C,A-Cf-inpcj-lutein-zeaxan (PRESERVISION AREDS-2) 250-90-40-1 mg capsule Take 2 tablets by mouth in the morning and at bedtime. Activevit C/E/Zn/coppr/lutein/zeaxan (PRESERVISION AREDS-2 ORAL) (3 sources)vit C/E/Zn/coppr/lutein/zeaxan (PRESERVISION AREDS-2 ORAL) Take by mouth twice a day. Activevit C/E/Zn/coppr/lutein/zeaxan (PRESERVISION AREDS-2 ORAL) Take by mouth twice a day. 0 ActiveVitamin B Complex 1,000 (3 sources)Start: 28-43-2948Yghywbk B Complex 1,000 Orally daily May, ActiveVitamin B-12 1000 MCG (2 sources)take 1 tablet by mouth once dailyVitamin B-12 1000 MCG 1 tablet Orally Once a day for 30 day(s) Activevitamin b12 1 mg oral tablet (1 source)Vitamin A89sgfm 1 tablet by mouth every twenty-four hoursVitamin B-12 1000 MCG 1 tablet Orally Once a day for 30 day(s) Activevitamins A,C,D-iyov-cfatiz (1 source)Start: 73-40-2134plgmjetl A,C,P-ozin-jlpgvw Active PO August 19, 2024 12:00amZyrtec Hives Relief 10 MG (3 sources)take 1 tablet by mouth once dailyZyrtec Hives Relief 10 MG 1 tablet Orally Once a day for 30 day(s) Active Completed/Discontinued Medications MedicationDrug Class(es)DatesSig (Normalized)Sig (Original)acetaminophen 325 mg oral tablet (4 sources)Start: 06-18-2023 End: 34-30-5416kunltaiowwfjg (TYLENOL) tablet 650 mgtake 2 tablets by mouth every six hours as needed for painacetaminophen (TYLENOL EXTRA STRENGTH) 500 mg tablet Take 2 tablets (1,000 mg total) by mouth every6 (six) hours as needed for pain. Activeacetaminophen 325 mg / oxyCODONE hydrochloride 5 mg oral tablet (8 sources)Opioid AgonistStart: 04-24-2018 End: 44-43-6053pqdd 1 tablet by mouth every four to six hours as needed for pain Oxycodone-Acetaminophen 5-325 mg tablet Discontinued 1 TAB PO EVERY 4-6 HOURS as needed for pain 20July 2017April 27, 2018 11:00pm April 28, 2018 11:01pmStart: 66-04-1328drxx 2 tablets by mouth every four hours as needed for painOxycodone-Acetaminophen (Percocet) 5-325 mg tablet Active 2 TAB PO Q4H as needed for pain April 17, 2018ascorbic acid 226 mg / beta carotene 92413 unt / cuprous oxide 0.8 mg / dl-alpha tocopheryl itniixh278 unt / zinc oxide 34.8 mg oral capsule (11 sources)Vitamin Ctake 2 capsules by mouth twice dailyPreserVision AREDS Oral Capsule TAKE 2 CAPSULE Twice daily Quantity: 0 Refills: 0 Ordered: 17-Aug-2021 DO Activecarvedilol 6.25 mg oral tablet (9 sources)alpha-Adrenergic Boom, beta-Adrenergic BlockerStart: 11-03-2020 Carvedilol 6.25 MG Oral Tablet Quantity: 180 Refills: 0 Ordered: 03-Nov-2020 DO Start : 03-Nov-2020 CompleteStart: 04-17-2018 End: 29-37-6689gvpo 1 tablet by mouth twice dailyCarvedilol 25 mg tablet Discontinued 25 MG PO Twice daily April 16, 2018 11:00pm November 01, 2022 10:47amtake 1 tablet by mouth every twelve hoursCarvedilol 12.5 MG 1 tablet with food Orally Twice a day for 30 day(s) Activecephalexin 500 mg oral capsule (4 sources)Cephalosporin AntibacterialStart: 04-17-2018 End: 04-06-4441hxvs 1 capsule by mouth twice dailyCephalexin (Keflex) 500 mg capsule Discontinued 500 MG PO Twice daily 14 7 April 16, 2018 11:00pm April 22, 2018 11:00pm April 23, 2018 11:01pmcevimeline 30 mg oral capsule (20 sources)Cholinergic Receptor AgonistStart: 11-03-2020 End: 43-09-8254szuv 1 capsule by mouth three times dailycevimeline (EVOXAC) 30 mg capsule Indications: Xerostomia Take 1 capsule (30 mg total) by mouth 3 (t hree) times a day. 270 capsule 4 02/14/2024 02/29/2024 Discontinued (Duplicate Listing)Start: 21-68-3293qssd 1 mg by mouth three times dailycevimeline See Instructions, mg Oral TID, Refills(s) 0 Start Date: 10/27/19 Status: Ordered Start: 04-17-2018 End: 79-06-2406mmaklswqhb (EVOXAC) 30 mg capsule Indications: Xerostomia TAKE 1 CAPSULE 4 TIMES DAILY 360 capsule 3 08/17/2022 01/17/2024 Discontinued (Reorder) take 25 mg by mouth three times dailyCEVIMELINE HCL PO Take 25 mg by mouth 3 times daily 0 ActivedimenhyDRINATE 50 mg oral tablet (1 source)Start: 06-18-2023 End: 47-94-3924wfxjqwjXFDLIWU (DRAMAMINE) tablet 50 mgStart: 06-18-2023 End: 62-81-4411lbapordWLHXRJK (DRAMAMINE) tablet 50 mgdoxycycline hyclate 100 mg oral tablet (1 source)Tetracycline-class DrugStart: 27-23-9935rruh 1 tablet by mouth twice daily, then take 1 tablet by mouth once dailyDoxycycline Hyclate 100 MG Oral Tablet take 1 tablet by mouth twice a day for 14 days then 1 tabletonce daily for 14 days Quantity: 42 Refills: 0 Ordered: 18-Oct-2020 DO Start : 18-Oct-2020 Completefamotidine 20 mg oral tablet (3 sources)Histamine-2 Receptor AntagonistStart: 10-04-2022 End: 44-28-1466bfxz 1 tablet by mouth in the morning, [...] fentaNYL 0.05 mg/ml injection (2 sources)Opioid AgonistStart: 05-82-651317 mcg, IntraVENous, EVERY 5 MIN PRN, 2 [...] 100 mg oral tablet (1 source)Azole AntifungalStart: 32-26-7051oyue 1 tablet by mouth once daily Fluconazole 100 MG Oral Tablet take 1 tablet by mouth once daily Quantity: 10 Refills: 0 Ordered: 17-Nov-2020 DO Start : 17-Nov-2020 Completehydrocortisone 10 mg/ml / neomycin 3.5 mg/ml / polymyxin b 10280 unt/ml ophthalmic suspension (3 sources)Aminoglycoside Antibacterial, Polymyxin-class Antibacterial, CorticosteroidStart: 39-64-1948sxbj 2 drop(s) into the eye(s) four times daily Mfqsxwbh-Yelowchms-OP 3.5-00943-4 Ophthalmic Suspension instill 2 drops INTO AFFECTED EYE four times a day Quantity: 8 Refills: 0 Ordered: 14-Jun-2021 DO Start : 13-Jun-2021 ActivelevoFLOXacin 750 mg oral tablet (1 source)Quinolone AntimicrobialStart: 10-26-3690gqij 1 tablet by mouth once dailylevoFLOXacin 750 [...] oral capsule (4 sources)Nitrofuran AntibacterialStart: 04-24-2018 End: 24-46-2955otfc 1 capsule by mouth twice daily at mealtimeNitrofurantoin Monohyd/M-Cryst (Macrobid) 100 mg capsule Discontinued 100 MG PO Twice daily April 23, 2018 11:00pm November 01, 2022 10:47am must administer with a meal/foodoxyCODONE hydrochloride 5 mg oral tablet (1 source)Opioid AgonistStart: 06-18-2023 End: 93-40-9021lnle 1 dose by mouth once5 mg, Oral, ONCE PRN, 1 dose, Starting on Sun06/18/23 at 1449, Until Sun06/18/23 at 1505, Pain Moderate (4-6), Pain Severe (7-10) PHASE II PACU onlypredniSONE 10 mg oral tablet (1 source)Start: 83-03-4475pusm 5 tablets by mouth once daily, then take 4 tablets by mouth once dailypredniSONE 10 MG Oral Tablet take 5 tablets by mouth once daily X2 DAYS, 4 tablets daily X2 DA... (REFER TO PRESCRIPTION NOTES). Quantity: 30 Refills: 0 Ordered: 18-Oct-2020 DO Start : 18-Oct-2020 Sondfogg59 hr ranolazine 500 mg extended release oral tablet (7 sources)Anti-anginalStart: 04-17-2018 End: 84-37-4484rzcz 1 tablet by mouth twice dailyRanolazine 500 [...] for 30 day(s) Not-TakingVersabase Cream (1 source)Start: 00-34-3893Jawfpjdxl Cream Quantity: 15 Refills: 0 Ordered: 07-Sep-2020 DO Start : 07-Sep-2020 Complete Problems Active Problems Problem ClassificationProblemDateDocumented DateEpisodic/ChronicAbdominal pain (16 sources)Abdominal pain; Translations: [Unspecified abdominal pain]Onset: 00-88-1353QmcufrnjDpluz myocardial infarction (3 sources)Acute myocardial infarction; Translations: [Acute myocardial infarction, unspecified]Onset: 761397-23-5467PgbqkdpJkwqchs tract disease (4 sources)Choledochal cyst; Translations: [Other specified diseases of biliary tract]ChronicCalculus of urinary tract (12 sources)Kidney stone; Translations: [Calculus of kidney]Onset: 06-02-2022 EpisodicCardiac and circulatory congenital anomalies (14 sources)Ventricular septal defect; Translations: [Ventricular septal defect] Onset: 650039-86-8209UxarjecRigxotf dysrhythmias (14 sources)Paroxysmal supraventricular tachycardia; Translations: [Paroxysmal supraventricular tachycardia]Onset: 549579-36-0451VeguatoLimmrollggl and hemorrhagic disorders (3 sources)Disorder of hemostatic system; Translations: [Coagulation defect, unspecified]Onset: 970989-22-2308LedhyzoGfjuskyzlfcn of device; implant or graft (4 sources)Arteriosclerosis of coronary artery bypass graft; Translations: [Atherosclerosis of coronary arterybypass graft(s) without angina pectoris] Onset: 513547-79-7265KakjzfqUwawvaml atherosclerosis and other heart disease (20 sources)Coronary atherosclerosis; Translations: [Coronary atherosclerosis of [place] coronary artery]Onset: 50-91-0709QxdlvxfXpkpurzh atherosclerosis and other heart disease (7 sources)Patient post percutaneous transluminal coronary angioplasty; Translations: [Coronary angioplasty status]Onset: 349267-16-2442Cpuldfku Diabetes mellitus without complication (3 sources)Diabetes mellitus; Translations: [Type 2 diabetes mellitus without complications]Onset: 801194-52-2395BzgzyzmEcwvdpcu mellitus without complication (1 source)Diabetes mellitus without complicationOnset: 85-04-6229Lsnjonclt of lipid metabolism (20 sources)Hyperlipidemia; Translations: [Other and unspecified hyperlipidemia] Onset: 120597-42-8095UqzvnbrGmyqymckcz disorders (3 sources)Gastroesophageal reflux disease; Translations: [Gastro-esophageal reflux disease without esophagitis]Onset: 779391-62-8521GvnynwtZmgycbvbh hypertension (20 sources)Benign essential hypertension; Translations: [Benign essential hypertension]Onset: 730824-89-9923AgfealrThjipkxacuatc symptoms and ill- defined conditions (5 sources)Mixed incontinence; Translations: [Incontinence]Onset: 06-02-2022 ChronicGenitourinary symptoms and ill-defined conditions (2 sources)Genitourinary tract problem; Translations: [Other symptoms and signs involving the genitourinary system]Onset: 98-86-5733FevlxvyoJvwnrvuxhkld; infection of eye (except that caused by tuberculosis or sexually transmitteddisease) (3 sources)Chronic allergic conjunctivitis; Translations: [Other chronic allergic conjunctivitis]Onset: 738829-28-9105ZqvtzldRyarynrywz disorders (2 sources)Postmenopausal bleeding; Translations: [Postmenopausal bleeding] Onset: 316485-48-9169OgqhuukXerzwjytzfo chest pain (3 sources)Atypical chest pain; Translations: [Other chest pain]Onset: 208938-68-3912QuirxuvtUynpp aftercare (1 source)technician terminal and repeater (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; Translations: [CLINICAL IMMUNOLOGIST CURRENT USE OF ASPIRIN]Onset: 05-20-5038AkfchpgrPpaid aftercare (1 source)Other intermediate (current) drug therapy; Translations: [OTH CLINICAL IMMUNOLOGIST CURRENT DRUG THERAPY]Onset: 36-01-4700CqkikmvxTsrns and ill-defined heart disease (3 sources)Heart disease; Translations: [Heart disease, unspecified]Onset: 560805-24-4441CoenmyyUdusj connective tissue disease (6 sources)Tendonitis of right wrist; Translations: [Other enthesopathies, not elsewhere classified]93-85-9356IopjfwcoYdijs connective tissue disease (4 sources)Muscle weakness of upper limb; Translations: [Other symptoms and signs involving the musculoskeletal system]68-53-3126JzizymatOkviq connective tissue disease (4 sources)Pain in right arm; Translations: [Pain in right arm]05-15-2025 EpisodicOther diseases of bladder and urethra (2 sources)Detrusor overactivity; Translations: [Overactive bladder]Onset: 44-95-1969LcmymrjSfzkl diseases of bladder and urethra (2 sources)Overactive xloatga13-81-4425XfjursmKjclc diseases of bladder and urethra (2 sources)Pain in lhnoloi86-58-1765EkngapfiDfliu gastrointestinal disorders (1 source)Intestinal malabsorption, unspecified; Translations: [INTESTINAL MALABSORPTION UNS]Onset: 06-94-0672ZeflfmpFyrnr gastrointestinal disorders (2 sources)Bariatric surgery status; Translations: [BARIATRIC SURGERY STATUS] Onset: 54-95-2297XrlrqlvdWhonh gastrointestinal disorders (3 sources)Constipation; Translations: [Constipation, unspecified]EpisodicOther gastrointestinal disorders (1 source)Constipation, unspecifiedEpisodicOther liver diseases (3 sources)Elevated liver enzymes level; Translations: [Abnormal levels of other serum enzymes]EpisodicOther liver diseases (1 source)Abnormal levels of other serum enzymesEpisodicOther nervous system disorders (4 sources)Ulnar neuropathy of right arm; Translations: [Lesion of ulnar nerve, right upper limb]72-95-3375NgibmknNxdxf nervous system disorders (1 source)Carpal tunnel syndrome of left wrist; Translations: [Carpal tunnel syndrome, left upper limb]59-26-9021YkbauegWkfhe nervous system disorders (5 sources)Numbness; Translations: [Anesthesia of skin]10-74-4813YctxlhreGqgls nervous system disorders (1 source)Paresthesia; Translations: [Paresthesia of skin]99-45-7108Urhlnvyw Other non-traumatic joint disorders (2 sources)Pain in wrist; Translations: [Pain in right wrist]59-21-3058Aokmqqnq Other non-traumatic joint disorders (4 sources)Pain of right wrist; Translations: [Pain in right wrist]05-15-2025 EpisodicOther non-traumatic joint disorders (2 sources)Chronic pain of right upper limb; Translations: [Pain in right wrist] 74-57-4044RordzomgOdxts nutritional; endocrine; and metabolic disorders (1 source)Hypervitaminosis D; Translations: [HYPERVITAMINOSIS D]Onset: 81-86-7941ZorxeiyIkzqz nutritional; endocrine; and metabolic disorders (2 sources)Body mass index 30+ - obesity; Translations: [Body mass index (BMI) 30.0-30.9, adult]Onset: 630155-11-9943ObvfxpwFqouk nutritional; endocrine; and metabolic disorders (2 sources)Body mass index (BMI) 30.0-30.9, adult; Translations: [Body mass index (BMI) 30.0-30.9, adult]Onset: 16-70-1375OaoczfdGxxkh nutritional; endocrine; and metabolic disorders (11 sources)Overweight in adulthood with body mass index of 25 or more but less than 30; Translations: [Overweight]EpisodicOther screening for suspected conditions (not mental disorders or infectious disease) (6 sources)Other specified abnormal findings of blood chemistry; Translations: [Patient encounter status]Onset: 11-64-2698ZyseptrtFlpmg skin disorders (1 source)Epidermoid cyst; Translations: [Epidermal cyst]40-86-5977XjzxmqodUvspr skin disorders (1 source)Epidermal cyst; Translations: [Epidermal cyst]Onset: 06-18-2023 EpisodicOther upper respiratory disease (1 source)Allergic rhinitis, unspecified; Translations: [Allergic rhinitis, unspecified]Onset: 70-40-4729CiyewkrSwkmr upper respiratory disease (1 source)Allergic rhinitis; Translations: [Allergic rhinitis, unspecified] 06-75-1955DdrqhimMqbgjgjr codes; unclassified (4 sources)Other specified health status; Translations: [Other drug allergy] Onset: 532544-33-3296TlctqnozXepvrselwnio (1 source)Presence of aortocoronary bypass graft / Z95.1(ICD-9)Onset: 08-29-2017 Unclassified (1 source)Athscl heart disease of [place] coronary artery w/o ang pctrs / I25.10(ICD-9)Onset: 86-03-1900Wczcaqkuymin (1 source)Pure hypercholesterolemia, unspecified / E78.00(ICD-9)Onset: 73-22-0314Lsnhmuvgmafy (2 sources)Encounter for preprocedural cardiovascular examination / Z01.810(ICD-9)Onset: 88-43-8866Eucdgkxsvyvv (1 source)Old myocardial infarction / I25.2(ICD-9)Onset: 16-31-5849Vejgxihypocs (1 source)Coronary angioplasty status / Z98.61(ICD-9)Onset: 08-29-2017 Unclassified (1 source)Cardiomyopathy, unspecified / I42.9(ICD-9)Onset: 08-29-2017 Unclassified (1 source)Family history of diseases of the ms sys and connective tiss / Z82.69(ICD-9)Onset: 85-55-8272Oiodyeezmrhs (1 source)Family hx of ischem heart dis and oth dis of the circ sys / Z82.49(ICD-9)Onset: 45-67-8294Hmdheezplrpr (1 source)Patient encounter status; Translations: [Well female exam with routine gynecological exam]Unclassified (4 sources)Drug therapy aigcuiv85-35-8173Azqqfltbiazo (4 sources)Finding of sensation of pjhgjsa63-54-4551Arrrzaecnuqg (1 source)CONTACT W/AND (SUSP) EXPOS COVID-19; Translations: [CONTACT W/AND (SUSP) EXPOS COVID-19]Onset: 62-59-4674Tujogfuasafz (1 source)Med RefillOnset: 50-32-8591Uokilntjlspf (2 sources)Chronic pain of right upper yfxn55-32-4799 Past or Other Problems Problem ClassificationProblemDateDocumented DateEpisodic/ChronicCancer of colon (2 sources)Personal history of other malignant neoplasm of large intestine; Translations: [Personal history ofother malignant neoplasm of large intestine] Onset: 10-20-5244TpyjrhzwGxlqnsvz of mouth; excluding dental (6 sources)Disturbances of salivary secretion; Translations: [Xerostomia]Onset: 052622-12-7402HivglrtpAssi disorders (3 sources)Mood disordersOnset: 615209-96-6454Sngyy aftercare (2 sources)Encounter for follow-up examination after completed treatment for malignant neoplasm; Translations:[Encounter for follow-up examination after completed treatment for malignant neoplasm]Onset: 36-83-1269QhbloeoaFledv connective tissue disease (1 source)Pain in left arm; Translations: [Pain in left arm]Onset: 10-11-2024 EpisodicOther connective tissue disease (1 source)Pain in right arm; Translations: [Pain in right arm]Onset: 10-11-2024 EpisodicOther diseases of kidney and ureters (3 sources)Kidney disease; Translations: [Disorder of kidney and ureter, unspecified]Onset: 027908-44-0461RzldycabIqhat upper respiratory disease (1 source)Other specified disorders of nose and nasal sinuses; Translations: [Other specified disorders of nose and nasal sinuses]Onset: 41-66-3425Nozhqwrw Other upper respiratory disease (4 sources)Nasal mucosa dry; Translations: [Other specified disorders of nose and nasal sinuses]Onset: 775644-13-9124LpnktzjoMhujvtiniv disorders (not diabetes) (15 sources)Idiopathic acute pancreatitis without necrosis or infection; Translations: [Acute pancreatitis without necrosis or infection, unspecified] Onset: 96-50-2946RtglemoxFwboktexirgn (1 source)Encounter for preprocedural cardiovascular examination; Translations: [Encounter for preprocedural cardiovascular examination]Onset: 08-29-2017 Unclassified (11 sources)Never smoked tobacco; Translations: [Never a smoker] Results Test NameValueInterpretationReference RangeFacilityReminderson 07-23-2025 RemindersReminders From: Magdalena Longoria To: EU - Administrative; Sent: 08/05/2024 13:08:24 EST Show up: 03/01/2025 13:08:00 EDT Subject: 1 yr reminder Due Date/Time: 08/01/2025 13:08:00 EDT Reminder/Recall Patient needs scheduled with [facility] for a 1 yr f/u with [facility] Left VM asking PT to call back and schedule. [facility]Prem[facility] NorthMR WRIST RIGHT WO IV CONTRASTon [id number] WRIST RIGHT WO IV CONTRASTEXAM/TECHNIQUE: MR WRIST [...] Order Comment: MRI RT wrist w/o at [facility]. Orbits if needed. Please contact patient to scheduleOrders Onlyon [id number] [id number] AngelikaJose Alberto 1965 Date Provider Department Center 05/19/2025 [id number]-LJ-NOAJJOANALISA YOO [facility] Family History Problem Relation Age of Onset Hyperlipidemia Mother Hyperlipidemia Father Hyperlipidemia Brother Heart attack Brother Family Status - Relation Status Age at Mother Father Brother BrotherNormalUniversregency hospital company of [facility] KingwoodTelephoneon 05-19-2025 [id number] AngelikaJose Alberto 1965 Provider Department Center 05/19/2025 [facility] Family History Problem Relation Age of Onset Hyperlipidemia Mother Hyperlipidemia Father Hyperlipidemia Brother Heart attack Brother Family Status - Relation Status Age at Mother Father Brother BrotherNoSelect Specialty Hospital - [facility] of [facility] KingwoodXR Wrist - right 2 Views on 36-19-0632Jshje result: AP and Lateral Right Wrist: Bone Structure: No acute fracture or dislocation Joint Spaces: The carpal joint spaces are well preserved, minimal joint space narrowing mostly radial with subchondral sclerosis. Scapho-lunate interval within normal limit. Soft tissue: No swelling or calcification Impression: No acute bony process Right Wrist with minimal degenerative changes.[facility] CenterRad[facility] Study observation (narrative) [address] [phone] spoke with Betsy the manager of pharmacy and clarify some information and that is what was needed so hopefully soon be able to get soon.NormalUnUK HealthcareTephoneon [id number] AngelikaJose Alberto 1965 Date Provider Department Center 05/14/2025 [id number]-AK-TPXQYUANALISA YOO [facility] Family History Problem Relation Age of Onset Hyperlipidemia Mother Hyperlipidemia Father Hyperlipidemia Brother Heart attack Brother Family Status - Relation Status Age at Mother Father Brother BrotherNormalUniAshtabula County Medical [id number] AngelikaJose Alberto 1965 Date Provider Department Center 05/14/2025 [facility] History Problem Relation Age of Onset Hyperlipidemia Mother Hyperlipidemia Father Hyperlipidemia Brother Heart attack Brother Family Status - Relation Status Age at Mother Father Brother BrotherNormalUniversity [facility]29on Addended by: ANALISA WATSON on: 05/14/2025 03:06 PM Modules accepted: OrdersNormalUniversWVUMedicine [facility]ville Hospital29Addended by: ANALISA WATSON on: 05/12/2025 05:18 PM Modules accepted: OrdersExcelsior Springs Medical CenteralUniAshtabula County Medical CenterFollow-Upon [id number] Jose Alberto Saleem 1965 Date Provider Department [place] 05/08/2025 [facility]AUNCEY [facility] Family History Problem Relation Age of Onset Hyperlipidemia Mother Hyperlipidemia Father Hyperlipidemia Brother Heart attack Brother Family Status - Relation Status Age at Mother Father Brother Brother Level of Service:13316 MI OFFICE/OUTPATIENT ESTABLISHED MOD MDM 30 MIN () Reason for Visit and Comments: Follow-up [613236][facility] and discussed the MRI/ [...] and Dr. Kimble is aware of the plan.[facility] HospitalTelephoneon [id number] Jose Alberto Saleem 1965 Date Provider Department [place] 03/25/2025 SANDRA BURRIS [facility] Family History Problem Relation Age of Onset Hyperlipidemia Mother Hyperlipidemia Father Hyperlipidemia Brother Heart attack Brother Family Status - Relation Status Age at Mother Father Brother BrotherNormalUniAshtabula County Medical Center3603/25/25@1020 Left patient a message that she will [...] or should she follow up in the clinic.[facility] HospitalTephone [id number] Jose Alberto Saleem 1965 Date Provider Department Center 03/20/2025 [facility] Family History Problem Relation Age of Onset Hyperlipidemia Mother Hyperlipidemia Father Hyperlipidemia Brother Heart attack Brother Family Status - Relation Status Age at Mother Father Brother BrotherNormalUni[address] [phone] and discussed with jay pt the HIDA and MRCP in details. ----- Message from Gisela sent at 02/11/2025 3:15 PM EDT ----- Patient calling for results and follow up plan. Office visit with you and Dr. Kimble 01/09/25NoPauletteversWVUMedicine Barnesville Hospital36----- Message from Gisela sent at 02/11/2025 3:15 PM EDT ----- Patient calling for results and follow up plan. [facility] with you and Dr[facility] [id number] Jose Alberto Saleem 1965 Date Provider Department Center 02/18/2025 SANDRA BURRIS [facility] Family History Problem Relation Age of Onset Hyperlipidemia Mother Hyperlipidemia Father Hyperlipidemia Brother Heart attack Brother Family Status - Relation Status Age at Mother Father Brother BrotherNormalUniAshtabula County Medical Center36on [phone] called me to get results of HIDA scan and then what to do as follow up. I do see the HIDA scan results from 01/30/25 @ [facility] and they are normal will forward to Dr. Sharma on of our [facility] [place] to see what further he would like to do.NormalUnUK HealthcareTelephoneon [phone] [id number] Jose Alberto Saleem 1965 F Date Provider Department Center 02/11/2025 [facility] H[facility]PITAL DOV Family History Problem Relation Age of Onset Hyperlipidemia Mother Hyperlipidemia Father Hyperlipidemia Brother Heart attack Brother Family Status - Relation Status Age at Mother Father Brother BrotherNormCleveland ClinicNM HIDA W EJECTION FRACTIONon 60-04-8667AX HIDA W EJECTION FRACTIONCLINICAL INFORMATION: Sphincter of [...] minutes. Electronically signed: Viet Prado M.D.. Not FrankdtJulio Interpretation CodeUnUK Healthcare Elastase.pancreatic (Stl) [Mass/Mass]on 60-23-3386Tfzatbqoww Elastase, F174 mcg/gLow>200 (Normal)[facility] Behavioral HospitalComment on above:Result Comment: NOTE Interpretation: Borderline (100-200 mcg/g); Consistent with slight to moderate pancreatic insufficiency Test Performed by: [facility] [address] [place] [address] Assembling Machine Operator: Andra Flores Ph.D.; CLIA# [id number] By: #### [id number] #### [facility] ([id number]) [address] [place] [address] FLOOR [place], [place] [address] [id number] by: CHAUNCEY KIMBLE on: 01/10/2025 08:32 AM Modules accepted: Level of ServiceNormalUniversWVUMedicine [facility] Hospital Follow-Upon [id number] Jose Alberto Saleem 1965 Date Provider Department Center 01/09/2025 375-CHAUNCEY KIMBLE [facility] GI [facility] Family History Problem Relation Age of Onset Hyperlipidemia Mother Hyperlipidemia Father Hyperlipidemia Brother Heart attack Brother Family Status - Relation Status Age at Mother Father Brother Brother Level of Service:23749 MI OFFICE/OUTPATIENT ESTABLISHED MOD MDM 30 MIN () Reason for Visit and Comments: Follow-up [888210] - MRI follow up and seen at [facility] and in hospital for 1 day. Will get records. Enzo helped tremendously this time and she came home with it, She just complains of fatigue. PCP Ordered sleep studyNormalUniversWVUMedicine [facility]ville Hospital36on /01/23@1548 Returned a phone call to patient. She had wanted to follow up with Dr. Chauncey Kimble to let him know she is currently in the ER at [facility] dx with pancreatitis. She had an MRCP on 12/31/24 and if any other lab work needs done to call the Hospital.NormalUnUK HealthcareTelephoneon [id number] Jose Alberto Saleem 1965 Provider Department Center 01/02/2025 GISELA OMER [facility] BRIDGETT Family History Problem Relation Age of Onset Hyperlipidemia Mother Hyperlipidemia Father Hyperlipidemia Brother Heart attack Brother Family Status - Relation Status Age at Mother Father Brother BrotherNormalUniversWVUMedicine Barnesville HospitalMR ABDOMEN W AND WO CONTRAST MRCPon 21-71-0842BM ABDOMEN W AND WO CONTRAST MRCPMRI ABDOMEN [...] signed: Figueroa Landeros MD. Not VldtdInvalid Interpretation CodeUnUK HealthcareFollow-Up on [id number] Jose Alberto Saleem 1965 F Date Provider Department Center 12/12/[address] [facility] Family History Problem Relation Age of Onset Hyperlipidemia Mother Hyperlipidemia Father Hyperlipidemia Brother Heart attack Brother Family Status - Relation Status Age at Mother Father Brother Brother Level of Service:24953 MI OFFICE/OUTPATIENT NEW MODERATE MDM 45 MINUTES (GC) Reason for Visit and Comments: Pancreatitis [304632] - Pain when she stresses or when she eats. She has trouble with losing weight as she always feels bloated and gassy.Normal [facility] HospitalXR Wrist - right 2 Viewson 41-67-1687Nogxjvm Result: AP and Lateral Right Wrist: Bone Structure: No acute fracture or dislocation Joint Spaces: The carpal joint spaces are well preserved, mild joint space narrowing and remodeling with subchondral sclerosis distal radius favoring arthritis. , Scapho-lunate interval within normal limit. Soft tissue: No swelling or calcification Impression: No acute bony process Right WristNOMayo Clinic Health System– Oakridge Radiology Study observation (narrative)NOMS HealthcareXR FOREARM RT 2 VWSon 82-75-9028WG FOREARM RT 2 VWSXR FOREARM RT 2 VWS CLINICAL INFORMATION: Right arm pain TECHNIQUE: XR FOREARM RT 2 VWS 2 views right forearm are obtained. There is no acute osseous, articular, or soft tissue abnormality. IMPRESSION: Negative exam. Finalized by Afshin Barrett MD on 10/11/2024 1:59 PMNormalProMedica Rio Hondo HospitalECG 12 lead ECGon 48-90-6824XGJ 12 lead ECGOHIOHEALTH DOCTORS [facility]OSPITAL Main [place] [address] [place] [address] Electrocardiograph Report Signed Patient: Jose Alberto Saleem MR#: [id number] 571 : 1965 Acct:[id number] Age/Sex: 59 / F ADM Date: 08/20/24 Loc: Room: [address] [place] [address] Type: DIS IN Attending Dr: Kaiser Quijano [...] abnormality Abnormal ECG Confirmed by Bella Stein ([id number]) on 08/22/2024 11:33:07 PM Referred By: Bella Stein Electronically Signed By: Bella Stein Transcribed By: MUS Signed By Bella Stein MD 4 2333[facility] Physician GroupTroponin I High Sensitivityon 12-66-1464Hwdjvyrw I High Qdywbkduokv4700.6 pg/mLOff scale high0.0-15.0The [facility] Physician GroupComment on above:Result Comment: Critical Result : Called to and read back by: ROB MCDONALD at: 08/22/2024 06:38:37 by:RAMONA PERFORMED BY: [facility] [address] [facility] [place] [address] PATHOLOGIST MILL REPRESENTATIVE JANA OLMEDO M.D.Performed By: #### HS TROP ####[facility] [address] [place] [address] USABlood Urea Nitrogenon 05-78-8687Kyov nitrogen [Mass/Vol]14 mg/dLNormal7-25The [facility] Physician GroupComment on above:Performed By: #### CREAT, BUN, PP, CBC, LYTES ####[place] [place] [address] [facility] Coagulation Profileon 83-25-4237zBAZ Coag (Bld) [Time]35.9 qDbtvjx54.1-36.5The [facility] Physician GroupComment on above:Result Comment: A hematocrit value greater than 55% may lead to inaccurate results in coagulation testing. Patients having hematocrit values >55% require a special collection tube for coagulation studies. Please contact the laboratory at [phone] for redraw instructions. PERFORMED BY: [facility] [address] [address] PATHOLOGIST MILL REPRESENTATIVE JANA OLMEDO M.D.Performed By: #### CREAT, BUN, PP, CBC, LYTES ####[address] [place] [address] [facility]TIST HOSPITALINR Coag (PPP) [Relative time]1.1 {INR}NormalThe [facility] St. Luke'S HospitalComment on above:Result Comment: INR Therapeutic Range A) [...] By: #### CREAT, BUN, PP, CBC, LYTES ####[address] [place] [address] USAPT Coag (PPP) [Time]12.2 sNormal9.0-12.9The [facility] Physician [facility]eflore HospitalComment on above:Result Comment: A hematocrit value greater than 55% may lead to inaccurate results in coagulation testing. Patients having hematocrit values >55% require a special collection tube for coagulation studies. Please contact the laboratory at [phone] for redraw instructions.Performed By: #### CREAT, BUN, PP, CBC, LYTES ####[address]Complete Blood Count Auto Diffon 94-51-9942Vthnjffcx (Bld) [#/Vol]0.0 10*3/uLNormal0.0-0.2The [facility] Physician GroupComment on above:Result Comment: PERFORMED BY: [facility] [address] [facility] CENTERAdelaida [place] [address] PATHOLOGIST MILL REPRESENTATIVE JANA OLMEDO M.D.Performed By: #### CREAT, BUN, PP, CBC, LYTES ####[address] Basophils/100 WBC (Bld)0.3 %Normal.The [facility] Physician GroupComment on above:Performed By: #### CREAT, BUN, PP, CBC, LYTES ####[place] [address] USAEosinophils (Bld) [#/Vol]0.2 10*3/uLNormal0.0-0.45The [facility] Physician GroupComment on above:Performed By: #### CREAT, BUN, PP, CBC, LYTES ####[place] [address] USAEosinophils/100 WBC (Bld)3.9 %Normal.The [facility] Physician GroupComment on above:Performed By: #### CREAT, BUN, PP, CBC, LYTES ####[address] Erythrocyte distribution width (RBC) [Ratio]12.7 %Hqztpe08.9-15.3The [facility] Physician GroupComment on above:Performed By: #### CREAT, BUN, PP, CBC, LYTES ####[address] Hematocrit (Bld) [Volume fraction]42.5 %Abwhbd75.0-46.4The [facility] Physician GroupComment on above:Performed By: #### CREAT, BUN, PP, CBC, LYTES ####[address] Hemoglobin (Bld) [Mass/Vol]14.6 g/gUGmbmyx25.8-15.4The [facility]ician Group Comment on above:Performed By: #### CREAT, BUN, PP, CBC, LYTES ####[place] [address] USALymphocytes (Bld) [#/Vol]1.7 10*3/uLNormal1.00-4.8The [facility] Physician GroupComment on above: Performed By: #### CREAT, BUN, PP, CBC, LYTES ####[place] [address] USALymphocytes/100 WBC (Bld)35.0 %Normal. The [facility] Physician GroupComment on above:Performed By: #### CREAT, BUN, PP, CBC, LYTES ####[address] StreetH (RBC) [Entitic mass]30.8 eoXefnrq26.7-34.3The [facility] Physician GroupComment on above:Performed By: #### CREAT, BUN, PP, CBC, LYTES ####[address]V (RBC) [Entitic vol]89.8 sLZkbllq08-202Wkk [facility] Physician GroupComment on above:Performed By: #### CREAT, BUN, PP, CBC, LYTES ####[place] [address] USAMean Corpuscular HGB Conc34.3 g/nQUwwytg07.0-35.0The [facility] Physician GroupComment on above:Performed By: #### CREAT, BUN, PP, CBC, LYTES ####[place] [address] USAMonocytes (Bld) [#/Vol]0.5 10*3/uLNormal0.0-0.8The [facility] Physician GroupComment on above:Performed By: #### CREAT, BUN, PP, CBC, LYTES ####[place] [address] USAMonocytes/100 WBC (Bld)10.9 %Normal.The [facility] Physician GroupComment on above:Performed By: #### CREAT, BUN, PP, CBC, LYTES ####[place] [address] USANeutrophils (Bld) [#/Vol]2.5 10*3/uLNormal1.8-7.7The [facility] Physician GroupComment on above:Performed By: #### CREAT, BUN, PP, CBC, LYTES ####[place] [address] USANeutrophils/100 WBC (Bld)49.9 %Normal.The [facility] Physician GroupComment on above:Performed By: #### CREAT, BUN, PP, CBC, LYTES ####[place] [address] USANRBC% 0.1 /100{WBC}Normal0-0.5The [facility] Physician GroupComment on above:Performed By: #### CREAT, BUN, PP, CBC, LYTES ####[place] [address] USAPlatelet mean volume (Bld) [Entitic vol]7.7 fL Normal6.3-10.7The [facility] Physician GroupComment on above:Performed By: #### CREAT, BUN, PP, CBC, LYTES ####[place] [address] USAPlatelets (Bld) [#/Vol]172 10*3/jENtrtaa419-584Adp [facility] Physician GroupComment on above:Performed By: #### CREAT, BUN, PP, CBC, LYTES ####[place] [address] USARBC (Bld) [#/Vol]4.73 10*6/uLNormal3.60-5.00The [facility] Physician Group Comment on above:Performed By: #### CREAT, BUN, PP, CBC, LYTES ####[place] [address] USAWBC (Bld) [#/Vol]4.9 10*3/uLNormal3.8-11.6The [facility] Physician GroupComment on above:Performed By: #### CREAT, BUN, PP, CBC, LYTES ####[address] [address] USACreatinineon 64-47-6046Ihfjpvupsr [Mass/Vol]0.61 mg/dLNormal0.60-1.20The [facility] Physician GroupComment on above:Performed By: #### CREAT, BUN, PP, CBC, LYTES ####[place] [address] USACreatinine Clr Calc Ovvxckak21.73NormalThe [facility] Physician GroupComment on above:Result Comment: PERFORMED BY: [place] [address] PATHOLOGIST MILL REPRESENTATIVE JANA OLMEDO M.D.Performed By: #### CREAT, BUN, PP, CBC, LYTES ####[address] [address] [place] GFR/1.73 sq M.predicted MDRD (S/P/Bld) [Vol rate/Area]mL/min/{1.73_m2}NormalThe [facility] Physician GroupComment on above:Performed By: #### CREAT, BUN, PP, CBC, LYTES ####[address] [address] USAECG 12 lead ECGon 41-05-4378GKM 12 lead ECGOHIOHEALTH DOCTORS HOSPITAL Main [place] [address] [place] [address] Electrocardiograph Report Signed Patient: Jose Alberto Saleem MR#: [id number] 571 : 1965 Acct:[id number] Age/Sex: 59 / F ADM Date: 08/20/24 Loc: Room: 1B2699-6 Type: DIS IN Attending Dr: Kaiser Quijano [...] abnormality Abnormal ECG Confirmed by Bella Stein ([id number]) on 08/22/2024 11:33:52 PM Referred By: Bella Stein Electronically Signed By: Bella Stein Transcribed By: MUS Signed By Bella Stein MD 4 2333Shriners Children's Twin CitiesElectrolyteson 07-83-7890Tnarg gap [Moles/Vol]11.0 mmol/LNormal6.0-15.0The [facility]. Luke'S HospitalComment on above:Performed By: #### CREAT, BUN, PP, CBC, LYTES ####[facility] [place] [address] USAChloride [Moles/Vol]105 mmol/L Ejhxko64-420Hkx [facility] Luke'S HospitalComment on above:Performed By: #### CREAT, BUN, PP, CBC, LYTES ####[facility] [place] [address] USACO2 [Moles/Vol]27.9 mmol/WFztjtl41.0-31.0The [facility] Luke'S HospitalComment on above:Performed By: #### CREAT, BUN, PP, CBC, LYTES ####[facility] [place] [address] USAPotassium [Moles/Vol]3.9 mmol/LNormal3.5-5.1The [facility] Comment on above:Performed By: #### CREAT, BUN, PP, CBC, LYTES ####[facility] [place] [address] USASodium [Moles/Vol]140 mmol/QIpxjir095-972Jvu [facility] Physician GroupComment on above:Performed By: #### CREAT, BUN, PP, CBC, LYTES ####[facility] [address] [place] [address] USANM lia perf SPECT rest stron 25-72-0240WQ lia perf SPECT rest [facility] [address] [place] [address] [place] [address] Nuclear Medicine Report Signed Patient: Jose Alberto Saleem MR#: [id number] 571 : 1965 Acct:[id number] Age/Sex: 59 / F ADM Date: 08/18/24 Loc: Room: [address] [place] [address] Type: ADM INOo Attending Dr: Chucky Dunn [...] Bella Stein M.D.08/20/2024 3:56 PM Dictation Location: [place] [address] Transcribed By: [facility] 08/20/24 1556 Dictated By: Bella Stein MD 08/20/24 155 Signed By: 08/20/[address] [facility] Physician BohbyS6E with Estimated Average Gluon 79-74-4297Hozirvn [Mass/Vol]117 mg/dLNormalThSt. Luke's Boise [facility] Center Physician GroupComment on above:Result Comment: PERFORMED BY: [place] [address] PATHOLOGIST MILL REPRESENTATIVE JANA OLMEDO M.D.Performed By: #### A1C WTH eA, HS TROP ####[facility] [address] [place] [id number] MOFYuA3l (Bld) [Mass fraction]5.7 %High4.3-5.6The [facility] Physician GroupComment on above:Result Comment: Increased risk for diabetes: 5.7 - 6.4 diabetes: >6.4 glycemic control for adults with diabetes: <7.0Performed By: #### A1C WTH eA, HS TROP ####[place] [address] USAECG 12 lead ECGon 58-01-3986ZNG 12 lead ECGOHIOHEALTH DOCTORS HOSPITAL [address] [place] [address] [place] [address] Electrocardiograph Report Signed Patient: Jose Alberto Saleem MR#: [id number] 571 : 1965 Acct:[id number] Age/Sex: 59 / F ADM Date: 08/18/24 Loc: Room: [address] [place] [address] Type: ADM INOo Attending Dr: Chucky Dunn [...] abnormality Abnormal ECG Confirmed by Bella Stein ([id number]) on 08/21/2024 12:00:39 AM Referred By: Bella Stein Electronically Signed By: Bella Stein Transcribed By: MUS Signed By Bella Stein MD 4 0000NoCrawley Memorial Hospital Physician GroupECG 12 lead ECGOHIOHEALTH DOCTORS HOSPITAL Main [address] [address] Electrocardiograph Report Signed Patient: Jose Alberto Saleem MR#: [id number] 571 : 1965 Acct:[id number] Age/Sex: 59 / F ADM Date: 08/18/24 Loc: Room: [address] [place] [address] Type: ADM INOo Attending Dr: Chucky Dunn [...] rhythm Leftward axis Confirmed by Bridgett Monreal ([id number]) on 08/20/2024 11:52:24 PM Referred By: Bella Stein Electronically Signed By: Bridgett Monreal Transcribed By: MUS Signed By Bridgett Monreal MD 08/20/24 2352NoCrawley Memorial Hospital Physician GroupTroponin I High Sensitivityon 48-07-7017Bgghccjj I High Sensitivity4.6 pg/mLNormal0.0-15.0The [facility] Physician [facility]eflore HospitalComment on above:Result Comment: PERFORMED BY: [place] [address] PATHOLOGIST MILL REPRESENTATIVE JANA OLMEDO M.D.Performed By: #### A1C WT eA, HS TROP ####[facility] [address] [place] [address] USAX-ray reportOrdered By: Thelma Wick on 19-81-7058Bhgaf reportOHIOHEALTH DOCTORS HOSPITAL Main [address] [address] XRay Report Signed Patient: Jose Alberto Saleem MR#: [id number] : 1965 Acct:[id number] Age/Sex: 59 / F ADM Date: 4 Loc: Room: [address] [place] [address] Type: ADM INOo Attending Dr: Donis Arroyo [...] Thelma Wick M.D.08/19/2024 12:10 AM Dictation Location: [place] [address] Transcribed By: [facility] 08/19/24 001 Dictated By: Thelma Wick MD 08/18/242210 Signed By: 08/19/24 001 [facility] Work Phone: Alanine aminotransferase [Enzymatic activity/volume] in Serum or PlasmaOrdered By: Lynnette Chapman on 01-12-8175MFK [Catalytic activity/Vol]Alanine aminotransferase [Enzymatic activity/volume] in Serum or Plasma7-52[facility] Ferry HospitalAlbumin [Mass/volume] in Serum or Plasma by Bromocresol green (BCG) dye binding methoOrdered By: Lynnette Chapman on 12-12-2040Pltzmgf BCG dye [Mass/Vol]Albumin [Mass/volume] in Serum or Plasma by Bromocresol green (BCG) dye binding metho3.5-5.7FHolzer Medical Center – JacksonAlkaline phosphatase [Enzymatic activity/volume] in Serum or PlasmaOrdered By: Lynnette Chapman on 46-12-9545UQX [Catalytic activity/Vol]Alkaline phosphatase [Enzymatic activity/volume] in Serum or Mkxpmg35-663ZbxntravtMartins Ferry HospitalAspartate aminotransferase [Enzymatic activity/volume] in Serum or Plasma Ordered By: Lynnette Chapman on 12-85-3370AWH [Catalytic activity/Vol]Aspartate aminotransferase [Enzymatic activity/volume] in Serum or Osjzad60-43MydyysqdyMartins Ferry HospitalB-Type Natriuretic Peptideon 49-28-7273Ilcpemrpqpk peptide B (Bld) [Mass/Vol]31.0 pg/mLNormal5-100The [facility] Physician Group Comment on above:Result Comment: PERFORMED BY: [place] [address] PATHOLOGIST MILL REPRESENTATIVE JANA OLMEDO M.D.Performed By: #### HS TROP, LIPASE, PT, BMP, HEPATIC, CK, CBC, BNP ####[address] [place] [address] USABasic Metabolic Panelon 34-66-8381Cfekx gap [Moles/Vol]10.7 mmol/L Normal6.0-15.0The [facility] Physician GroupComment on above:Performed By: #### HS TROP, LIPASE, PT, BMP, HEPATIC, CK, CBC, BNP #### [facility] [address] [place] [address] USAPerformed By: #### HS TROP, LIPASE, PT, BMP, HEPATIC, CK, CBC, BNP ####[place] [address] USACalcium [Mass/Vol]10.1 mg/dLNormal8.6-10.3The [facility] Physician Group Comment on above:Performed By: #### HS TROP, LIPASE, PT, BMP, HEPATIC, CK, CBC, BNP #### [facility] [address] [place] [address] USAPerformed By: #### HS TROP, LIPASE, PT, BMP, HEPATIC, CK, CBC, BNP ####[place] [address] USAChloride [Moles/Vol]102 mmol/DElbcdw41-728Jcl [facility] Physician Group Comment on above:Performed By: #### HS TROP, LIPASE, PT, BMP, HEPATIC, CK, CBC, BNP #### [place] [address] USAPerformed By: #### HS TROP, LIPASE, PT, BMP, HEPATIC, CK, CBC, BNP ####[place] [address] USACO2 [Moles/Vol]28.4 mmol/JHuhusw30.0-31.0The [facility] Physician GroupComment on above:Performed By: #### HS TROP, LIPASE, PT, BMP, HEPATIC, CK, CBC, BNP #### [place] [address] USAPerformed By: #### HS TROP, LIPASE, PT, BMP, HEPATIC, CK, CBC, BNP ####[place] [address] USACreatinine [Mass/Vol]0.62 mg/dLNormal0.60-1.20The [facility] Physician Group Comment on above:Performed By: #### HS TROP, LIPASE, PT, BMP, HEPATIC, CK, CBC, BNP #### [place] [address] USAPerformed By: #### HS TROP, LIPASE, PT, BMP, HEPATIC, CK, CBC, BNP ####[place] [address] USACreatinine Clr Calc Xswrhxwr39.72NormalThe [facility] Physician GroupComment on above:Result Comment: PERFORMED BY: [place] [address] PATHOLOGIST MILL REPRESENTATIVE JANA OLMEDO M.D.Performed By: #### HS TROP, LIPASE, PT, BMP, HEPATIC, CK, CBC, BNP #### [place] [address] USAPerformed By: #### HS TROP, LIPASE, PT, BMP, HEPATIC, CK, CBC, BNP ####[place] [address] USAGFR/1.73 sq M.predicted MDRD (S/P/Bld) [Vol rate/Area]mL/min/{1.73_m2}Normal The [facility] Physician GroupComment on above:Performed By: #### HS TROP, LIPASE, PT, BMP, HEPATIC, CK, CBC, BNP #### [place] [address] USAPerformed By: #### HS TROP, LIPASE, PT, BMP, HEPATIC, CK, CBC, BNP ####[place] [address] USAGlucose [Mass/Vol]94 mg/oOPtuaoh44-839Gra [facility] Physician GroupComment on above:Result Comment: Random Glucose Reference Range is dependent on time and content of last meal. Glucose of more than 200 mg/dL in a nonstressed, ambulatory subject supports the diagnosis of Diabetes Mellitus. ADA recommended reference rangePerformed By: #### HS TROP, LIPASE, PT, BMP, HEPATIC, CK, CBC, BNP #### [place] [address] USAPerformed By: #### HS TROP, LIPASE, PT, BMP, HEPATIC, CK, CBC, BNP ####[place] [address] USAPotassium [Moles/Vol]4.1 mmol/LNormal3.5-5.1The [facility] Physician Group Comment on above:Performed By: #### HS TROP, LIPASE, PT, BMP, HEPATIC, CK, CBC, BNP #### [place] [address] USAPerformed By: #### HS TROP, LIPASE, PT, BMP, HEPATIC, CK, CBC, BNP ####[place] [address] USASodium [Moles/Vol]137 mmol/BYifpdp906-559Xnz [facility] Physician GroupComment on above:Performed By: #### HS TROP, LIPASE, PT, BMP, HEPATIC, CK, CBC, BNP #### [place] [address] USAPerformed By: #### HS TROP, LIPASE, PT, BMP, HEPATIC, CK, CBC, BNP ####[place] [address] USAUrea nitrogen [Mass/Vol]22 mg/dLNormal7-25The [facility] Physician Group Comment on above:Performed By: #### HS TROP, LIPASE, PT, BMP, HEPATIC, CK, CBC, BNP #### [facility] [address] [place] [address] USAPerformed By: #### HS TROP, LIPASE, PT, BMP, HEPATIC, CK, CBC, BNP ####[facility] [address] [place] [address] USABasophils Auto (Bld) [#/Vol]Ordered By: Lynnette Chapman on 15-72-1197Zdillmssb (Bld) [#/Vol]Automated basophil count0.0-0.2FHolzer Medical Center – Jackson Basophils/100 WBC Auto (Bld)Ordered By: Lynnette Chapman on 08-18-2024 Basophils/100 WBC (Bld)Automated basophil %.[facility] Bilirubin.direct [Mass/volume] in Serum or PlasmaOrdered By: Lynnette Chapman on 53-13-2585Cbdizolnh.direct [Mass/Vol]Bilirubin.direct [Mass/volume] in Serum or Plasma0.03-0.18FHolzer Medical Center – JacksonBilirubin.total [Mass/volume] in Serum or PlasmaOrdered By: Lynnette Chapman on 29-53-0996Efmimkvyt [Mass/Vol] Bilirubin.total [Mass/volume] in Serum or Plasma0.3-1.0[facility] HospitalCalcium [Mass/volume] in Serum or PlasmaOrdered By: Lynnette Chapman on 48-27-3508Hjyrsyi [Mass/Vol]Calcium [Mass/volume] in Serum or Plasma8.6-10.3 [facility] HospitalCarbon dioxide, total [Moles/volume] in Serum or PlasmaOrdered By: Lynnette Chapman on 83-82-8887KJ2 [Moles/Vol]Carbon dioxide, total [Moles/volume] in Serum or Jkgrhc44.0-31.0[facility]erry HospitalChloride [Moles/volume] in Serum or PlasmaOrdered By: Lynnette Chapman on 08-56-6974Oqumqyvd [Moles/Vol]Chloride [Moles/volume] in Serum or Qsgxfa74-938 [facility] HospitalComplete Blood Count Auto Diffon 08-18-2024 Basophils (Bld) [#/Vol]0.0 10*3/uLNormal0.0-0.2The [facility] Physician Group Comment on above:Result Comment: PERFORMED BY: [place] [address] PATHOLOGIST MILL REPRESENTATIVE JANA OLMEDO M.D.Performed By: #### HS TROP, LIPASE, PT, BMP, HEPATIC, CK, CBC, BNP #### [place] [address] USABasophils/100 WBC (Bld)0.7 %Normal.The [facility] Physician GroupComment on above:Performed By: #### HS TROP, LIPASE, PT, BMP, HEPATIC, CK, CBC, BNP #### [place] [address] USAEosinophils (Bld) [#/Vol]0.2 10*3/uLNormal0.0-0.45The [facility] Physician GroupComment on above:Performed By: #### HS TROP, LIPASE, PT, BMP, HEPATIC, CK, CBC, BNP #### [place] [address] USAEosinophils/100 WBC (Bld)3.5 %Normal.The [facility] Physician GroupComment on above:Performed By: #### HS TROP, LIPASE, PT, BMP, HEPATIC, CK, CBC, BNP #### [place] [address] USAErythrocyte distribution width (RBC) [Ratio]12.6 %Normal 11.9-15.3The [facility] Physician GroupComment on above:Performed By: #### HS TROP, LIPASE, PT, BMP, HEPATIC, CK, CBC, BNP #### [place] [address] USAHematocrit (Bld) [Volume fraction]43.7 %Ntjrxn93.0-46.4The [facility] Physician GroupComment on above:Performed By: #### HS TROP, LIPASE, PT, BMP, HEPATIC, CK, CBC, BNP #### [place] [address] USAHemoglobin (Bld) [Mass/Vol]15.1 g/nGKiwhhz79.8-15.4The [facility] Physician GroupComment on above:Performed By: #### HS TROP, LIPASE, PT, BMP, HEPATIC, CK, CBC, BNP #### [place] [address] USALymphocytes (Bld) [#/Vol]2.2 10*3/uLNormal1.00-4.8The [facility] Physician GroupComment on above:Performed By: #### HS TROP, LIPASE, PT, BMP, HEPATIC, CK, CBC, BNP #### [place] [address] USALymphocytes/100 WBC (Bld)36.5 %Normal.The [facility] Physician GroupComment on above:Performed By: #### HS TROP, LIPASE, PT, BMP, HEPATIC, CK, CBC, BNP #### [place] [address] USAMCH (RBC) [Entitic mass]30.7 xvFxmfzl85.7-34.3The [facility] Physician GroupComment on above:Performed By: #### HS TROP, LIPASE, PT, BMP, HEPATIC, CK, CBC, BNP #### [place] [address] USAMCV (RBC) [Entitic vol]88.8 ySLjwati99-163Vqj [facility] Physician GroupComment on above:Performed By: #### HS TROP, LIPASE, PT, BMP, HEPATIC, CK, CBC, BNP #### [place] [address] USAMean Corpuscular HGB Conc34.5 g/cJBzbhrb06.0-35.0The [facility] Physician GroupComment on above:Performed By: #### HS TROP, LIPASE, PT, BMP, HEPATIC, CK, CBC, BNP #### [place] [address] USAMonocytes (Bld) [#/Vol]0.6 10*3/uLNormal0.0-0.8The [facility] Physician GroupComment on above:Performed By: #### HS TROP, LIPASE, PT, BMP, HEPATIC, CK, CBC, BNP #### [place] [address] USAMonocytes/100 WBC (Bld)16.97 %Normal0.00-20.00The [facility] Physician GroupComment on above:Performed By: #### HS TROP, LIPASE, PT, BMP, HEPATIC, CK, CBC, BNP #### [place] [address] USAMonocytes/100 WBC (Bld)10.5 %Normal.The [facility] Physician GroupComment on above:Performed By: #### HS TROP, LIPASE, PT, BMP, HEPATIC, CK, CBC, BNP #### [place] [address] USANeutrophils (Bld) [#/Vol]3.0 10*3/uLNormal1.8-7.7The [facility] Physician GroupComment on above:Performed By: #### HS TROP, LIPASE, PT, BMP, HEPATIC, CK, CBC, BNP #### [place] [address] USANeutrophils/100 WBC (Bld)48.8 %Normal.The [facility] Physician GroupComment on above:Performed By: #### HS TROP, LIPASE, PT, BMP, HEPATIC, CK, CBC, BNP #### [place] [address] USANRBC%0.1 /100{WBC}Normal0-0.5The [facility] Group Comment on above:Performed By: #### HS TROP, LIPASE, PT, BMP, HEPATIC, CK, CBC, BNP #### [place] [address] USAPlatelet mean volume (Bld) [Entitic vol]7.9 fLNormal 6.3-10.7The [facility] Physician GroupComment on above:Performed By: #### HS TROP, LIPASE, PT, BMP, HEPATIC, CK, CBC, BNP #### [facility] [address] [place] [address] USAPlatelets (Bld) [#/Vol]204 10*3/vRGkhapj309-018Rae [facility] Physician GroupComment on above:Performed By: #### HS TROP, LIPASE, PT, BMP, HEPATIC, CK, CBC, BNP #### [facility] [address] [place] [address] USARBC (Bld) [#/Vol]4.92 10*6/uLNormal3.60-5.00The [facility] Physician GroupComment on above:Performed By: #### HS TROP, LIPASE, PT, BMP, HEPATIC, CK, CBC, BNP #### [facility] [address] [place] [address] USAWBC (Bld) [#/Vol]6.1 10*3/uLNormal3.8-11.6The [facility] Physician GroupComment on above:Performed By: #### HS TROP, LIPASE, PT, BMP, HEPATIC, CK, CBC, BNP #### [facility] [address] [place] [id number] USACreatine Kinaseon 43-48-0555AU [Catalytic activity/Vol]53 U/AFsqekq32-703Uew [facility] Physician GroupComment on above:Performed By: #### HS TROP, LIPASE, PT, BMP, HEPATIC, CK, CBC, BNP ####[facility] [address] [place] [id number] USACreatine kinase [Enzymatic activity/volume] in Serum or PlasmaOrdered By: Lynnette Chapman on 01-59-9156GX [Catalytic activity/Vol]Creatine kinase [Enzymatic activity/volume] in Serum or Webkkd35-232XnleautalMartins Ferry HospitalCreatinine [Mass/volume] in Serum or PlasmaOrdered By: Lynnette Chapman on 41-85-1827Xcgpfseqts [Mass/Vol]Creatinine [Mass/volume] in Serum or Plasma0.60-1.20Martins Ferry HospitalECG 12 lead ECGon 69-45-4366ROM 12 lead ECGOHIOHEALTH DOCTORS [facility] Main [place] [address] [place] [address] Electrocardiograph Report Signed Patient: Jose Alberto Saleem MR#: [id number] 571 : 1965 Acct:[id number] Age/Sex: 59 / F ADM Date: 08/18/24 Loc: ER Room: Type: [facility] ER Attending Dr: Ordering Provider: Lynnette Chapman [...] wave abnormality Confirmed by Lynnette Chapman MD ([id number]) on 08/18/2024 11:22:40 PM Referred By: Electronically Signed By: Lynnette Chapman MD Transcribed By: MUS Signed By Lynnette Chapman MD 08/01 05/[address] [place] [address] Physician GroupEosinophils Auto (Bld) [#/Vol] Ordered By: Lynnette Chapman on 28-04-6799Tnhpovgfmnp (Bld) [#/Vol]Automated eosinophil count0.0-0.45Martins Ferry HospitalEosinophils/100 WBC Auto (Bld)Ordered By: Lynnette Chapman on 83-10-5350Naqoocmikxs/100 WBC (Bld) Automated eosinophil %.Martins Ferry HospitalErythrocyte distribution width Auto (RBC) [Ratio]Ordered By: Lynnette Chapman on 30-72-9209Rojfljhbhbw distribution width (RBC) [Ratio]Erythrocyte distribution width [Ratio] by Automated count11.9-15.3FHolzer Medical Center – JacksonGlobulin Calc (S) [Mass/Vol]Ordered By: Lynnette Chapman on 92-24-8482Celieavb (S) [Mass/Vol]Serum globulin measurement by calculation (mass/volume)Mart[facility] Ferry HospitalGlucose [Mass/volume] in Serum or PlasmaOrdered By: Lynnette Chapman on 48-42-5265Albhtmv [Mass/Vol]Glucose [Mass/volume] in Serum or Xxnzcc23-859 [facility] Ferry HospitalComment on above:ADA recommended reference rangeRandom Glucose Reference Range is dependent on time and content of last meal. Glucose of more than 200 mg/dL in a nonstressed, ambulatory subject supports the diagnosisof Diabetes Mellitus.Hematocrit Auto (Bld) [Volume fraction]Ordered By: Lynnette Chapman on 44-51-6718Scynheyskj (Bld) [Volume fraction]Hematocrit [Volume Fraction] of Blood by Automated count34.0-46.4 [facility]erry HospitalHemoglobin [Mass/volume] in BloodOrdered By: Lynnette Chapman on 04-01-9939Uwbkkbtudp (Bld) [Mass/Vol]Hemoglobin [Mass/volume] in Blood11.8-15.4FHolzer Medical Center – JacksonHepatic Panelon 08-18-2024 Albumin [Mass/Vol]4.3 g/dLNormal3.5-5.7The [facility] Physician GroupComment on above:Performed By: #### HS TROP, LIPASE, PT, BMP, HEPATIC, CK, CBC, BNP ####[address] Albumin/Globulin [Mass ratio]1.7 {ratio}NormalThe [facility] Physician Group Comment on above:Performed By: #### HS TROP, LIPASE, PT, BMP, HEPATIC, CK, CBC, BNP ####[place] [id number] USAALP [Catalytic activity/Vol]89 U/GRtgsxy39-675Icm [facility] Physician [facility]lore HospitalComment on above:Performed By: #### HS TROP, LIPASE, PT, BMP, HEPATIC, CK, CBC, BNP ####[place] [id number] USAALT [Catalytic activity/Vol]42 U/LNormal7-52The [facility] Physician [facility]lore HospitalComment on above:Performed By: #### HS TROP, LIPASE, PT, BMP, HEPATIC, CK, CBC, BNP ####[place] [address] USAAST [Catalytic activity/Vol]31 U/XTdjwsl29-38Sxh [facility] Physician [facility]eflore HospitalComment on above:Performed By: #### HS TROP, LIPASE, PT, BMP, HEPATIC, CK, CBC, BNP ####[address] Bilirubin [Mass/Vol]0.4 mg/dLNormal0.3-1.0The [facility] Physician GroupComment on above:Performed By: #### HS TROP, LIPASE, PT, BMP, HEPATIC, CK, CBC, BNP ####[address] Bilirubin,Indirect0.3 mg/dLNormAshtabula County Medical Centere [facility] Physician GroupComment on above: Performed By: #### HS TROP, LIPASE, PT, BMP, HEPATIC, CK, CBC, BNP ####[place] [address] USABilirubin.indirect [Mass/Vol]0.10 mg/dLNormal0.03-0.18The [facility] Physician GroupComment on above:Performed By: #### HS TROP, LIPASE, PT, BMP, HEPATIC, CK, CBC, BNP ####[address] Globulin (S) [Mass/Vol]2.6 g/dLNormAshtabula County Medical Centere [facility] Physician [facility]eflore HospitalComment on above:Performed By: #### HS TROP, LIPASE, PT, BMP, HEPATIC, CK, CBC, BNP ####[place] [address] USAProtein [Mass/Vol]6.9 g/dLNormal6.4-8.9The [facility] Physician [facility]eflore HospitalComment on above: Performed By: #### HS TROP, LIPASE, PT, BMP, HEPATIC, CK, CBC, BNP ####[place] [address] USAINR in Platelet poor plasma by Coagulation assayOrdered By: Lynnette Chapman on 55-69-0023XUQ Coag (PPP) [Relative time]INR in Platelet poor plasma by Coagulation assayMartins Ferry HospitalComment on above:INR Therapeutic Range A) Pre- and [...] by Automated counOrdered By: Lynnette Chapman on 81-77-2137ZUC corrected for nucl RBC Auto (Bld) [#/Vol]Leukocytes [#/volume] corrected for nucleated erythrocytes in Blood by Automated coun3.8-11.6FHolzer Medical Center – JacksonLipaseon 46-67-1951Qbnpmr [Catalytic activity/Vol]110.0 U/LHigh11.0-82.0The [facility] Physician GroupComment on above:Result Comment: PERFORMED BY: [facility] [address] [place] [address] PATHOLOGIST MILL REPRESENTATIVE JANA OLMEDO M.D.Performed By: #### HS TROP, LIPASE, PT, BMP, HEPATIC, CK, CBC, BNP ####[facility] [place] [address] USALipase [Enzymatic activity/volume] in Serum or PlasmaOrdered By: Lynnette Chapman on 33-07-5231Jgacyo [Catalytic activity/Vol]Lipase [Enzymatic activity/volume] in Serum or HenhpiKfuv37.0-82.0Mart[facility] Ferry HospitalLymphocytes Auto (Bld) [#/Vol]Ordered By: Lynnette Chapman on 08-18-2024 Lymphocytes (Bld) [#/Vol]Lymphocytes [#/volume] in Blood by Automated count 1.00-4.8Martins Ferry HospitalLymphocytes/100 WBC Auto (Bld)Ordered By: Lynnette Chapman on 96-18-6136Kynqkjjoock/100 WBC (Bld)Lymphocytes/100 leukocytes in Blood by Automated count.[facility] Auto (RBC) [Entitic mass]Ordered By: Lynnette Chapman on 29-85-7186CDC (RBC) [Entitic mass]MCH [Entitic mass] by Automated count24.7-34.3FHolzer Medical Center – JacksonMCHC Auto (RBC) [Mass/Vol]Ordered By: Lynnette Chapman on 93-84-8800JNGF (RBC) [Mass/Vol]MCHC [Mass/volume] by Automated count32.0-35.0Mart[facility] Ferry HospitalMCV Auto (RBC) [Entitic vol]Ordered By: Lynnette Chapman on 06-82-8867LWB (RBC) [Entitic vol]MCV [Entitic volume] by Automated orwem31-245 [facility]erry HospitalMonocyte distribution width [Entitic volume] in Blood by AutomatedOrdered By: Lynnette Chapman on 94-90-1502Ywndcvat distribution width Auto (Bld) [Entitic vol]Monocyte distribution width [Entitic volume] in Blood by Automated0.00-20.00[facility] Ferry HospitalMonocytes Auto (Bld) [#/Vol]Ordered By: Lynnette Chapman on 19-58-8629Xiouaepcs (Bld) [#/Vol] Automated blood monocyte count0.0-0.8[facility] Monocytes/100 WBC Auto (Bld)Ordered By: Lynnette Chapman on 08-18-2024 Monocytes/100 WBC (Bld)Automated monocyte %.[facility] Natriuretic peptide B [Mass/Vol]Ordered By: Lynnette Chapman on 08-18-2024 Natriuretic peptide B (Bld) [Mass/Vol]BNP ser/plas5-100Mart[facility] Ferry HospitalNeutrophils Auto (Bld) [#/Vol]Ordered By: Lynnette Chapman on 73-65-5242Sqkzduvampj (Bld) [#/Vol]Neutrophils [#/volume] in Blood by Automated count1.8-7.7FHolzer Medical Center – JacksonNeutrophils/100 WBC Auto (Bld) Ordered By: Lynnette Chapman on 04-96-6114Saiilxkcyth/100 WBC (Bld)Automated neutrophil %.[facility] Ferry HospitalNo Panel InformationOrdered By: Lynnette Chapman on 48-33-4278Vrwwdqmks GFR (CKD-EPI)> 60.0 mL/MinMartins Ferry HospitalPharmacy Creatinine Clearance (Chem95.72Martins Ferry HospitalNucleated erythrocytes [Presence] in Blood by Automated countOrdered By: Lynnette Chapman on 84-68-0286Nqukzhdkb RBC Auto Ql (Bld) Nucleated erythrocytes [Presence] in Blood by Automated count0-0.5FHolzer Medical Center – JacksonPlatelet mean volume Auto (Bld) [Entitic vol]Ordered By: Lynnette Chapman on 43-82-5565Dtvziobn mean volume (Bld) [Entitic vol]Platelet mean volume [Entitic volume] in Blood by Automated count6.3-10.7FHolzer Medical Center – JacksonPlatelets Auto (Bld) [#/Vol]Ordered By: Lynnette Chapman on 75-84-7226Rezbmlajn (Bld) [#/Vol]Platelets [#/volume] in Blood by Automated zjoqi954-899ZesxcfzonMartins Ferry HospitalPotassium [Moles/volume] in Serum or PlasmaOrdered By: Lynnette Chapman on 40-75-4543Hedrbudej [Moles/Vol]Potassium [Moles/volume] in Serum or Plasma3.5-5.1FHolzer Medical Center – JacksonProtein [Mass/volume] in Serum or PlasmaOrdered By: Lynnette Chapman on 00-58-3705Xsnvnqb [Mass/Vol]Protein [Mass/volume] in Serum or Plasma6.4-8.9Mart[facility] Ferry HospitalProthrombin Time INRon 45-96-0787QJW Coag (PPP) [Relative time]1.0 {INR}NormalThe [facility] Physician GroupComment on above:Result Comment: INR [...] heart valves: 3 - 4.5 PERFORMED BY: [place] [address] PATHOLOGIST MILL REPRESENTATIVE JANA OMLEDO M.D.Performed By: #### HS TROP, LIPASE, PT, BMP, HEPATIC, CK, CBC, BNP #### [place] [address] USAPT Coag (PPP) [Time]11.7 sNormal9.0-12.9The [facility] Physician GroupComment on above:Result Comment: A hematocrit value greater than 55% may lead to inaccurate results in coagulation testing. Patients having hematocrit values >55% require a special collection tube for coagulation studies. Please contact the laboratory at [phone] for redraw instructions.Performed By: #### HS TROP, LIPASE, PT, BMP, HEPATIC, CK, CBC, BNP #### [facility] [address] [place] [address] USAProthrombin time (PT)Ordered By: Lynnette Chapman on 63-57-6001NU Coag (PPP) [Time]Prothrombin time (PT)9.0-12.9Mart[facility] Ferry HospitalComment on above:A hematocrit value greater than 55% may lead to inaccurate results in coagulation testing. Patientshaving hematocrit values >55% require a special collection tube for coagulation studies. Please contact the laboratory at [phone] for redraw instructions.RBC Auto (Bld) [#/Vol]Ordered By: Lynnette Chapman on 74-75-9137BYF (Bld) [#/Vol]Erythrocytes [#/volume] in Blood by Automated count3.60-5.00[facility] Samaritan Hospitalerum or plasma albumin/globulin mass ratioOrdered By: Lynnette Chapman on 08-18-2024 Albumin/Globulin [Mass ratio]Serum or plasma albumin/globulin mass ratio [facility] Hospitalerum or plasma anion gap determinationOrdered By: Lynnette Chapman on 23-80-7412Qwgnk gap [Moles/Vol]Serum or plasma anion gap determination6.0-15.0[facility] Hospitalerum or plasma non- glucuronidated bilirubin measurement (mass/volume)Ordered By: Lynnette Chapman on 41-83-7763Upoknyaax.indirect [Mass/Vol]Serum or plasma non-glucuronidated bilirubin measurement (mass/volume)[facility]aritan Hospitalodium [Moles/volume] in Serum or PlasmaOrdered By: Lynnette Chapman on 99-26-9742Bosmtx [Moles/Vol]Sodium [Moles/volume] in Serum or Yeawrj793-290SmllunuvbMartins Ferry HospitalTroponin I High Sensitivityon 47-22-3932Zkyvyntv I High Sensitivity4.7 pg/mLNormal0.0-15.0The [facility] Physician GroupComment on above: Result Comment: PERFORMED BY: [facility] [address] [place] [address] PATHOLOGIST MILL REPRESENTATIVE JANA OLMEDO M.D.Performed By: #### HS TROP ####[place] [address] [place] [address] USATroponin I High Sensitivity5.1 pg/mLNormal0.0-15.0The [facility] Physician GroupComment on above:Result Comment: PERFORMED BY: [place] [id number] PATHOLOGIST MILL REPRESENTATIVE JAAN OLMEDO M.D.Performed By: #### HS TROP, LIPASE, PT, BMP, HEPATIC, CK, CBC, BNP ####[place] [address] [place] [address] USATroponin I.cardiac [Mass/volume] in Serum or Plasma by Detection limit <= 0.01 ng/Ordered By: Lynnette Chapman on 88-43-2844Txqdeoeh I.cardiac DL <= 0.01 ng/mL [Mass/Vol]Troponin I.cardiac [Mass/volume] in Serum or Plasma by Detection limit <= 0.01 ng/0.0-15.0Mart[facility] Ferry HospitalUrea nitrogen [Mass/volume] in Serum or PlasmaOrdered By: Lynnette Chapman on 93-77-9421Mnvs nitrogen [Mass/Vol]Urea nitrogen [Mass/volume] in Serum or Plasma 7-25Martins Ferry HospitalWBC Auto (Bld) [#/Vol]Ordered By: Lynnette Chapman on 94-62-8161KIB (Bld) [#/Vol]Leukocytes [#/volume] in Blood by Automated count3.8-11.6FHolzer Medical Center – JacksonXR chest 2V*on 90-51-4286EC chest 2V*[facility] Main [address] [address] XRay Report Signed Patient: Jose Alberto Saleme MR#: [id number] 571 : 1965 Acct:[id number] Age/Sex: 59 / F ADM Date: 08/18/24 Loc: Room: [address] [place] [address] Type: ADM INOo Attending Dr: Donis Arroyo [...] Thelma Wick M.D.08/19/2024 12:10 AM Dictation Location: [place] [address] Transcribed By: [facility] 08/19/24 0010 Dictated By: Thelma Wick MD 08/18/242210 Signed By: 08/19/24 0010[facility] Physician GroupUrology Office/Clinic Noteon 06-12-0478Ocyyksi Office/Clinic NoteUrology Office/Clinic Note Chief Complaint OAB HPI Staff [...] Myrbetriq from 25mg to 50mg qd Ordered: 98540 Measure Post Void residual urine and/or bladder capacity by US- non-imaging E&M of Est. Patient Moderate 30-39 Min 31585 Urnls Dip Stick Auto w/o Microscopy POC 16344 2. Urethral pain (R39.89: Other symptoms and [...] # 90 tab(s), Refills(s) 3, Pharmacy: [facility] [id number], 160, cm, 08/05/24 11:29:00 EST, Height/Length Dosing, 74.2, kg, 08/05/24 11:29:00 EST, Weight Dosing tamsulosin, 0.4 mg = 1 cap(s), Oral, Daily, # 90 cap(s), Refills(s) 3, Pharmacy: [facility], 160, cm, 08/05/24 11:29:00 EST, Height/Length Dosing, 74.2, kg, 08/05/24 11:29:00 EST, Weight Dosing Follow-up With When Contact Information JENNIFER MARTINO PA-C, URL Within 1 year Additional Instructions: Patient Education Kidney Stones, Pllo-ch-Ctol Problem List/Past Medical History Ongoing Anticoagulated Feeling (more content not included)...[facility] NorthComment on above:Result Comment: Electronically Signed By: JENNIFER MARTINO PA-C\.br\Date and Time Signed: 08/05/2412:20 ESTGlucose Glucometer (BldC) [Mass/Vol]on 92-26-8304Tqmpsrj [Mass/Vol]79 mg/kYKqucsz58-95XcaXmozhiKnox Community Hospitalurgical Pathology Reporton 06-07-4835Bvzwcymk Pathology Report(NOTE) Path Number: [id number] -- Diagnosis -- ENDOMETRIAL CURETTINGS: -BENIGN ENDOMETRIAL [...] Microscopic Description Microscopic examination performed. Processing Lab: [address] [address] Interpretation Performed at [facility] [address] [place] [address] SURGICAL PATHOLOGY CONSULTATION Patient Name: JOSE ALBERTO SALEEM Med Rec: [id number] [facility] ANATOMIC PATHOLOGY [address] [place] [address]. [place], [place] [address] NormalMercy Yale New Haven Psychiatric HospitalUS NON OB TRANSVAGINALon 46-44-7628LK NON OB TRANSVAGINALTable formatting from the original [...] by: Gaby Tello DO 06/05/23 Final resultNormalMercy West Los Angeles Memorial HospitalCeruloplasminon 12-12-2022 Ncqdcvmpkhlne78.6 mg/dL19.0-39.0 mg/dLShriners Hospitals For Children [employer] Other Ferritinon 92-64-2012Mcnwptqd [Mass/Vol]43.9095895 ng/fHKcbwzu63.0-306.8 ng/mLNErie County Medical Center [employer] Other Hepatitis A Antibody Totalon 33-74-4316Nlvfxswxu A Antibody TotalNegative.[place] [employer] Other Hepatitis B Surface Antibodyon 43-71-4614Iiaviteep B Surface AntibodyNon-ReactiveNon ReactiveShriners Hospitals For Children [facility] [facility] Other Immunoglobulin Javi 47-07-9962Pyrsiwjnocwdlz G823 mg/dL 586-1602 mg/dLCharlton Heights [employer] Other 733-0832Fjofn-Smpkor Microsomal Abon 10-99-0196Ekcvo-Kidney Microsomal Ab1.10.0-20.0[place] [employer] Other Mitochondrial (M2) Antibodyon 12-13-4867Ywdritxdotopg (M2) Antibody<20.00.0-20.0N[facility]search [facility] [employer] Other Smooth Muscle Antibodyon 06-43-9806Uciehx Muscle Vxxdxoly38-77Gqyjz [employer] Other mr MRCPon 24-91-2754FT [facility] [employer] Other mr [facility] [employer] Other mr [address] [employer] Other mr MRCPSANNAMARIA rhoades [address]IbjvtShriners Hospitals For Children [place] Other mr MRCPMRI ReportShriners Hospitals For Children [facility] Other mr MRCPSignedCharlton Heights [employer] Other mr MRCPPatient: Jose Alberto Saleem MR#: [id number] [employer] Other mr HGCH511Zfnws [employer] Other mr MRCPDOB: 1965 Acct:[id number] [employer] Other mr MRCPAge/Sex: 57 / F ADM Date: 11/10/22[place] [employer] Other mr MRCPLoc: MR Room: Type: [facility] [employer] Other mr MRCPAttending Dr: Evert Bruno [facility] [employer] Other mr MRCPCopies to: Evert Bruno [facility] [employer] Other mr MRCPOrdering Provider: Evert Bruno [facility] [employer] Other mr MRCPDate of Service: 11/10/22[place] [employer] Other mr MRCPAccession #: ([id number]) MR/MR MRCP: Abdominal pain;Common bile duct dilatation;Elevated liver [facility] [employer] Other mr MRCRCSaint Luke's East Hospital [employer] Other mr MRCPCLINICAL DATA: Elevated lipase. Abnormal outside abdominal CTCharlton Heights [employer] Other mr MRCPCOMPARISON: CT abdomen 10/16/2022[place] [employer] Other mr MRCPMultiecho imaging of the abdomen was performed along with radial imaging of the biliary tree.[employer] Other mr MRCPThe gallbladder surgically absent. There is no significant intrahepatic biliary dilatation. [facility] [employer] Other mr MRCPcommon duct is slightly prominent measuring up to 6 mm. It tapers toward the ampulla. No inNtwo rivers psychiatric hospital [employer] Other MR MRCPtraluminal filling defects are identified to suggest choledocholithiasis. The pancreatic duct isNoresearch medical center-brookside campus [employer] Other MR MRCPalso borderline prominent measuring 2 - 3 mm. No intrahepatic masses are identified. No pancreaticCharlton Heights [employer] Other mr MRCPabnormalities are noted. The spleen and adrenal glands are within normal limits. There is [facility] [employer] Other MR MRCPhydronephrosis. There are right renal cysts. There is no aortic aneurysm. No adenopathy [facility] [employer] Other mr MRCPascites is seen. There is no dilated bowel within the odqik-zz-sxjh.[employer] Other mr MRCPORDER #: [id number] MR/MR MRCPNErie County Medical Center [employer] Other mr MRCPIMPRESSION:[employer] Other MR MRCPSLIGHTLY PROMINENT COMMON DUCT, WITHOUT CHOLEDOCHOLITHIASIS. THIS MAY RELATE TO PREVIOUSCharlton Heights [employer] Other mr MRCPCHOLECYSTECTOMY.[employer] Other mr MRCPRIGHT RENAL CYSTS.[employer] Other mr MRCPNO OTHER SIGNIFICANT MRI FINDINGS.[employer] Other mr MRCPImpression dictated by: Thelma Wick M.D.11/10/2022 7:00 [facility] [employer] Other mr MRCPDictation Location: [address] [employer] Other mr MRCPTranscribed By: BEN 11/10/22[facility] [employer] Other mr MRCPDictated By: Thelma Wick MD 11/10/221849 [employer] Other mr MRCPSigned By:[employer] Other mr MRCP11/10/221899[place] [employer] Other albumin [Mass/volume] in Serum or PlasmaOrdered By: sara Bruno on 74-59-4089Ipowcab [Mass/Vol]4.0 g/dL3.2-5.5FHolzer Medical Center – JacksonDirect bilirubin measurementOrdered By: Imad Asasara on 11-01-2022 Bilirubin.direct [Mass/Vol]0.1 mg/dL0.0-0.4FHolzer Medical Center – Jackson Globulin Calc (S) [Mass/Vol]Ordered By: Imad Asaad on 42-67-6369Bnqrlzet (S) [Mass/Vol]2.5 g/dLMartins Ferry HospitalHepatic Panelon 11-01-2022 Albumin [Mass/Vol]4.964907 g/dLNormal3.2-5.5 g/dLCharlton Heights [employer] Other aLT [Catalytic activity/Vol]94 U/AKotb05-15 U/LNtwo rivers psychiatric hospital [employer] Other bilirubin [Mass/Vol]0.9986650 mg/dLNormal0.3-1.2 mg/dL [place] [employer] Other bilirubin.indirect [Mass/Vol]0.9887420 mg/dLNormal0.0- 0.4 mg/dLCharl[place] [employer] Other Protein [Mass/Vol]6.852581 g/dLNormal6.1-7.9 g/dLCharlton Heights [employer] [facility] [employer] Other Hepatic Panel0.5 mg/dLNort [employer] Other Hepatic Panel2.5 g/dLNo2 [employer] Other Protein [Mass/volume] in Serum or PlasmaOrdered By: Imad Asaad on 03-92-4441Cffxhxx [Mass/Vol]6.5 g/dL6.1-7.9Good Samaritan Hospitalerum or plasma alanine aminotransferase measurement without P-5'-P (enzymatic activiOrdered By: Imad Asaad on 67-31-5893JPE No additional P-5'-P [Catalytic activity/Vol]94 U/W05-61EgkvatbcdGood Samaritan Hospitalerum or plasma albumin/globulin mass ratioOrdered By: Imad Asaad on 11-01-2022 Albumin/Globulin [Mass ratio]1.6 {ratio}[facility] Hospitalerum or plasma alkaline phosphatase measurement (enzymatic activity/volume)Ordered By: Imad Asaad on 26-42-7749DFE [Catalytic activity/Vol]93 U/B70-07GaunalutjGood Samaritan Hospitalerum or plasma aspartate aminotransferase measurement (enzymatic activity/volume)Ordered By: Imad Asaad on 39-04-5132GOL [Catalytic activity/Vol]66 U/V16-86YxlmuxmboGood Samaritan Hospitalerum or plasma non- glucuronidated bilirubin measurement (mass/volume)Ordered By: Imad Asaad on 61-78-5352Xvrvrcoht.indirect [Mass/Vol]0.5 mg/dLGood Samaritan Hospitalerum or plasma total bilirubin measurement (mass/volume)Ordered By: Imad Asaad on 91-49-2766Literfoef [Mass/Vol]0.6 mg/dL0.3-1.2FHolzer Medical Center – JacksonCT ABDOMEN WO/W CONon [id number] ABDOMEN WO/W CONEXAMINATION: CT ABDOMEN WO/W CON [...] Electronically authenticated by: JAE WILSON Date: 2022-10-17 08:23[facility] SystemAMMONIAon 16-23-1225Xccunmj (P) [Moles/Vol]10 umol/LCritically fkb98-11Uzt [facility] SystemComment on above:Performed By: #### COLE #### [facility] [address] [place] [address] Dr. Ayden CamAMYLASEon 50-47-6976Uelmyie [Catalytic activity/Vol]144 U/L Critically qdvm05-668Ybq [facility] SystemComment on above:Performed By: #### LIPA #### [facility] [address] [place] [address] Dr. Ayden Abdul AUTO DIFFon 26-03-3622WRPZ #0.0 103/ulNormal0.0-0.1The [facility] SystemComment on above:Performed By: #### CBC #### [facility] [address] [address] [address] Ayden CamBasophils/100 WBC (Bld)0.2 %Normal0.2-2.0The [facility] Comment on above:Performed By: #### CBC #### [facility] [address] [address] [address] Hensley ChangEAmauri #0.2 103/ulNormal0.0-0.7The [facility] SystemComment on above: Performed By: #### CBC #### [facility] [address] [place] [address] Dr. Ayden Koehlerosinophils/100 WBC (Bld)3.3 %Normal0.9-7.0The [facility] Comment on above:Performed By: #### CBC #### [facility] [address] [place] [address] Dr. Ayden Koehlerrythrocyte distribution width (RBC) [Ratio]12.1 %Phfyeh86.0-15.0 The [facility] SystemComment on above:Performed By: #### CBC #### [facility] [address] [place] [address] Dr. Ayden CamHematocrit (Bld) [Volume fraction]40.0 %Zkswxw64.0-48.0The [facility] SystemComment on above:Performed By: #### CBC #### [facility] [address] [place] [address] Dr. Ayden CamHemoglobin (Bld) [Mass/Vol]14.2 g/dKAovfgj99.0-16.0The [facility] SystemComment on above:Performed By: #### CBC #### [facility] [address] [place] [address] Dr. Ayden Dickson #0.01 10e3/ulNormal0.00-0.03The [facility] SystemComment on above:Performed By: #### CBC #### [facility] [address] [place] [address] Dr. Ayden Dickson %0.2 %Normal0.0-0.5The [facility] SystemComment on above: Performed By: #### CBC #### [facility] [address] [place] [address] Dr. Ayden PikeH #1.5 103/ulNormal1.2-3.8The [facility] SystemComment on above:Performed By: #### CBC #### [facility] [address] [place] [address] Dr. Yilan ChangLymphocytes/100 WBC (Bld)24.2 %Eijcjp20.5-60.0The [facility] SystemComment on above:Performed By: #### CBC #### [facility] [address] [place] [address] Dr. Ayden Melendez DIFF REQNONormalThe [facility] SystemComment on above: Performed By: #### CBC #### [facility] [address] [place] [address] Dr. Ayden Mccormack (RBC) [Entitic mass]30.0 csKjwqmy58.7-34.0The [facility] HospitalComment on above:Performed By: #### CBC #### [facility] [address] [place] [address] Dr. Ayden Mccormack (RBC) [Mass/Vol]35.5 g/dLCritically high29.9-35.2The [facility] SystemComment on above:Performed By: #### CBC #### [facility] [address] [place] [address] Dr. Ayden Melton (RBC) [Entitic vol]84.4 yWWximkm04.0-99.0The [facility] SystemComment on above:Performed By: #### CBC #### [facility] [address] [place] [address] Dr. Ayden Thornton #0.6 103/ulNormal0.3-0.8The [facility] SystemComment on above:Performed By: #### CBC #### [facility] [address] [place] [address] Dr. Ayden Atkinsonocytes/100 WBC (Bld)10.3 %Normal1.7-12.0The [facility] Comment on above:Performed By: #### CBC #### [facility] [address] [place] [address] Dr. Ayden Garrett #3.7 103/ulNormal1.4-6.5The [facility] SystemComment on above:Performed By: #### CBC #### [facility] [address] [place] [address] Dr. Ayden Hongutrophils/100 WBC (Bld)61.8 %Zafjzb48.0-75.0The [facility] SystemComment on above:Performed By: #### CBC #### [facility] [address] [place] [address] Dr. Ayden CamPlatelet mean volume (Bld) [Entitic vol]9.0 fLCritically low 9.5-13.5The [facility] SystemComment on above:Performed By: #### CBC #### [facility] [address] [place] [address] Dr. Ayden CamPLT191 103/klEmxvdk628-031Hvy [facility] SystemComasc[facility] on above: Performed By: #### CBC #### [facility] [address] [place] [address] Dr. Ayden CamRBC4.74 106/ulNormal4.20-5.40The [facility] Centerment on above:Performed By: #### CBC #### [facility] [address] [place] [address] Dr. Ayden CamWBC6.0 103/ulNormal4.0-11.0The [facility] SystemComment on above: Performed By: #### CBC #### [facility] [address] [place] [address] Dr. Ayden CamLIPASEon 55-42-7345Ghtllk [Catalytic activity/Vol]168.0 U/LNormal 73.0-393.0The [facility] SystemComasc[facility] on above:Performed By: #### LACT #### [facility] [address] [place] [address] Dr. Ayden CamPROF 14(COMP METB)on 18-39-9306Gyzroqe [Mass/Vol]3.6 g/dLNormal 3.4-5.0The [facility] on above:Performed By: #### LIPA #### [facility] [address] [place] [address] Dr. Ayden CamAlbumin/Globulin [Mass ratio]1.1 {ratio}NormalThe [facility] SystemComment on above:Performed By: #### LIPA #### [facility] [address] [address] [address] Ayden Tobar [Catalytic activity/Vol]93 U/IBizamj11-827Lgk [facility] SystemComment on above:Performed By: #### LIPA #### [facility] [address] [address] [address] Ayden CoburnT [Catalytic activity/Vol]52 U/JCqxpkn18-37Rdh [facility] SystemComment on above:Performed By: #### LIPA #### [facility] [address] [address] [address] Ayden Terrell gap [Moles/Vol]10.2 mmol/LNormalThe [facility] Comment on above:Performed By: #### LIPA #### [facility] [address] [address] [address] Ayden CamAST [Catalytic activity/Vol]33 U/ALclpzl74-90Itp [facility] SystemComment on above:Performed By: #### LIPA #### [facility] [address] [address] [address] Ayden CamBilirubin [Mass/Vol]0.3 mg/dLNormal0.2-1.0[facility] Comment on above:Performed By: #### LIPA #### [facility] [address] [place] [address] Dr. Ayden CamCalcium [Mass/Vol]9.4 mg/dLNormal8.5-10.1[facility] Comment on above:Performed By: #### LIPA #### [facility] [address] [address] [address] Ayden CamChloride [Moles/Vol]99 mmol/ASlzpne52-606Iqp [facility] Comment on above:Performed By: #### LIPA #### [facility] [address] [address] [address] Ayden CamCO2 [Moles/Vol]33.7 mmol/LCritically high21.0-32.0The [facility] SystemComment on above:Performed By: #### LIPA #### [facility] [address] [address] [address] Ayden CamCreatinine [Mass/Vol]0.62 mg/dLNormal0.55-1.02[facility] Medical CenterComment on above:Performed By: #### LIPA #### [facility] [address] [address] [address] Ayden KoehlerGFR-AF COLOMBIAN>60Normal>=60The [facility] SystemComment on above:Performed By: #### LIPA #### [facility] [address] [address] [address] Ayden KoehlerGFR-NON AF COLOMBIAN>60Normal>=60The [facility] SystemComment on above:Performed By: #### LIPA #### [facility] [address] [address] [address] Ayden CamGlobulin (S) [Mass/Vol]3.4 g/dLNormalThe [facility] SystemComment on above:Performed By: #### LIPA #### [facility] [address] [address] [address] Ayden CamGlucose [Mass/Vol]105 mg/wMPlskde49-778UtzPremier Health [facility]rium [facility] Center Comment on above:Performed By: #### LIPA #### [facility] [address] [address] [address] Ayden CamPotassium [Moles/Vol]3.9 mmol/LNormal3.5-5.1The [facility] Comment on above:Performed By: #### LIPA #### [facility] [address] [address] [address] Ayden CamProtein [Mass/Vol]7.0 g/dLNormal6.4-8.2The [facility] Comment on above:Performed By: #### LIPA #### [facility] [address] [address] [address] Ayden CamSodium [Moles/Vol]139 mmol/RUkovkn753-006QfqPremier Health [facility]rium Medical Center Comment on above:Performed By: #### LIPA #### [facility] [address] [place] [address] Dr. Ayden Santos nitrogen [Mass/Vol]28.0 mg/dLCritically high7.0-18.0The [facility] SystemComment on above:Performed By: #### LIPA #### [facility] [address] [place] [address] Dr. Ayden Santos nitrogen/Creatinine [Mass ratio]45.2 mg/mgNormalThe [facility] SystemComment on above:Performed By: #### LIPA #### [facility] [address] [place] [address] Dr. Ayden CamAMMONIAon 54-65-0984Dqxxrlv (P) [Moles/Vol]16 umol/PKfflby46-36 The [facility] SystemComment on above:Performed By: #### AMM #### [facility] [address] [place] [address] Dr. Ayden CamAMYLASEon 34-57-4574Ocsnnwc [Catalytic activity/Vol]189 U/L Critically vjrj66-650Via [facility] SystemComment on above:Performed By: #### LIPA #### [facility] [address] [place] [address] Dr. Ayden Abdul AUTO DIFFon 68-88-5603GMCB #0.0 103/ulNormal0.0-0.1The [facility] SystemComment on above:Performed By: #### CBC #### [facility] [address] [place] [address] Dr. Ayden CamBasophils/100 WBC (Bld)0.2 %Normal0.2-2.0The [facility] Comment on above:Performed By: #### CBC #### [facility] [address] [place] [address] Dr. Ayden Steele #0.3 103/ulNormal0.0-0.7The [facility] Centerment on above: Performed By: #### CBC #### [facility] [address] [place] [address] Dr. Ayden Koehlerosinophils/100 WBC (Bld)5.2 %Normal0.9-7.0The [facility] Comment on above:Performed By: #### CBC #### [facility] [address] [place] [address] Dr. Ayden Koehlerrythrocyte distribution width (RBC) [Ratio]12.3 %Mnboaa61.0-15.0 The [facility] SystemComment on above:Performed By: #### CBC #### [facility] [address] [place] [address] Dr. Ayden CamHematocrit (Bld) [Volume fraction]36.9 %Hickxn80.0-48.0The [facility] SystemComment on above:Performed By: #### CBC #### [facility] [address] [place] [address] Dr. Ayden CamHemoglobin (Bld) [Mass/Vol]12.4 g/dXXkogcc61.0-16.0The [facility] SystemComment on above:Performed By: #### CBC #### [facility] [address] [place] [address] Dr. Ayden Dickson #0.01 10e3/ulNormal0.00-0.03The [facility] SystemComment on above:Performed By: #### CBC #### [facility] [address] [place] [address] Dr. Ayden CamIG %0.2 %Normal0.0-0.5The [facility] SystemComment on above: Performed By: #### CBC #### [facility] [address] [place] [address] Dr. Ayden PikeH #1.8 103/ulNormal1.2-3.8The [facility] SystemComment on above:Performed By: #### CBC #### [facility] [address] [place] [address] Dr. Ayden Workmanmphocytes/100 WBC (Bld)31.3 %Elahql51.5-60.0The [facility] SystemComment on above:Performed By: #### CBC #### [facility] [address] [place] [address] Dr. Ayden Melendez DIFF REQNONormalThe [facility] SystemComment on above: Performed By: #### CBC #### [facility] [address] [place] [address] Dr. Ayden Mccormack (RBC) [Entitic mass]30.0 hhFgmhgh87.7-34.0The [facility] SystemComment on above:Performed By: #### CBC #### [facility] [address] [place] [address] Dr. Ayden Mccormack (RBC) [Mass/Vol]33.6 g/xONbfzja52.9-35.2The [facility] SystemComment on above:Performed By: #### CBC #### [facility] [address] [place] [address] Dr. Ayden Melton (RBC) [Entitic vol]89.1 xESkpewg33.0-99.0The [facility] SystemComment on above:Performed By: #### CBC #### [facility] [address] [place] [address] Dr. Ayden Thornton #0.6 103/ulNormal0.3-0.8The [facility] SystemComment on above:Performed By: #### CBC #### [facility] [address] [place] [address] Dr. Ayden Atkinsonocytes/100 WBC (Bld)10.1 %Normal1.7-12.0The [facility] Comment on above:Performed By: #### CBC #### [facility] [address] [place] [address] Dr. Ayden Garrett #3.1 103/ulNormal1.4-6.5The [facility] SystemComment on above:Performed By: #### CBC #### [facility] [address] [place] [address] Dr. Ayden Hongutrophils/100 WBC (Bld)53.0 %Plflvi12.0-75.0The [facility] SystemComment on above:Performed By: #### CBC #### [facility] [address] [place] [address] Dr. Ayden CamPlatelet mean volume (Bld) [Entitic vol]9.4 fLCritically low 9.5-13.5The [facility] SystemComment on above:Performed By: #### CBC #### [facility] [address] [place] [address] Dr. Ayden CamPLT153 103/ufKmgqxw723-721Avo [facility] SystemComment on above: Performed By: #### CBC #### [facility] [address] [place] [address] Dr. Ayden CamRBC4.14 106/ulCritically low4.20-5.40The [facility] SystemComment on above:Performed By: #### CBC #### [facility] [address] [place] [address] Dr. Ayden CamWBC5.8 103/ulNormal4.0-11.0The [facility] SystemComment on above: Performed By: #### CBC #### [facility] [address] [place] [address] Dr. Ayden CamLIPASEon 84-05-2444Zjfpej [Catalytic activity/Vol]166.0 U/LNormal 73.0-393.0The [facility] SystemComment on above:Performed By: #### LIPA #### [facility] [address] [place] [address] Dr. Ayden CamLIVER PROFILEon 93-19-9210Zaozaqs [Mass/Vol]3.2 g/dLCritically low3.4-5.0The [facility] SystemComment on above:Performed By: #### LIPA #### [facility] [address] [place] [address] Dr. Ayden CamAlbumin/Globulin [Mass ratio]1.3 {ratio}NormalThe [facility] SystemComment on above:Performed By: #### LIPA #### [facility] [address] [place] [address] Dr. Ayden CamALP [Catalytic activity/Vol]88 U/PYjpyom91-249Fap [facility] SystemComment on above:Performed By: #### LIPA #### [facility] [address] [address] [address] Ayden Hancock [Catalytic activity/Vol]66 U/LCritically pmab07-77Ocx [facility] SystemComment on above:Performed By: #### LIPA #### [facility] [address] [address] [address] Ayden CamAST [Catalytic activity/Vol]39 U/LCritically tipz37-83Uae [facility] SystemComment on above:Performed By: #### LIPA #### [facility] [address] [address] [address] Ayden HackettI, CONJUGATED0.1 mg/dLNormal0.0-0.2The [facility] Comment on above:Performed By: #### LIPA #### [facility] [address] [place] [address] Dr. Ayden Hackettirubin [Mass/Vol]0.4 mg/dLNormal0.2-1.0The [facility] Comment on above:Performed By: #### LIPA #### [facility] [address] [address] [address] Ayden CamGlobulin (S) [Mass/Vol]2.4 g/dLNormalThe [facility] SystemComment on above:Performed By: #### LIPA #### [facility] [address] [address] [address] Ayden CamProtein [Mass/Vol]5.6 g/dLCritically low6.4-8.2The [facility] SystemComment on above:Performed By: #### LIPA #### [facility] [address] [address] [address] Ayden CamPROF CHEM 8 (BAS METB)on 68-00-2688Jhmjc gap [Moles/Vol]6.8 mmol/LNormalThe [facility] SystemComment on above:Performed By: #### LIPA #### [facility] [address] [address] [address] Ayden CamCalcium [Mass/Vol]8.6 mg/dLNormal8.5-10.1[facility] Comment on above:Performed By: #### LIPA #### [facility] [address] [address] [address] Ayden CamChloride [Moles/Vol]102 mmol/GTizzeo91-244Zkr [facility] Comment on above:Performed By: #### LIPA #### [facility] [address] [address] [address] Ayden CamCO2 [Moles/Vol]32.6 mmol/LCritically high21.0-32.0The [facility] SystemComment on above:Performed By: #### LIPA #### [facility] [address] [address] [address] Ayden CamCreatinine [Mass/Vol]0.61 mg/dLNormal0.55-1.02The [facility] SystemComment on above:Performed By: #### LIPA #### [facility] [address] [address] [address] Ayden KoehlerGFR-AF COLOMBIAN>60Normal>=60The [facility] SystemComment on above:Performed By: #### LIPA #### [facility] [address] [address] [address] Ayden KoehlerGFR-NON AF COLOMBIAN>60Normal>=60The [facility] SystemComment on above:Performed By: #### LIPA #### [facility] [address] [address] [address] Ayden CamGlucose [Mass/Vol]91 mg/dNAzfarq74-784XlpPremier Health [facility] Comment on above:Performed By: #### LIPA #### [facility] [address] [address] [address] Ayden CamPotassium [Moles/Vol]3.4 mmol/LCritically low3.5-5.1The [facility] SystemComment on above:Performed By: #### LIPA #### [facility] [address] [address] [address] Adyen CamSodium [Moles/Vol]138 mmol/KPbmsrb162-790Fuc [facility] Comment on above:Performed By: #### LIPA #### [facility] [address] [place] [address] Dr. Ayden Santos nitrogen [Mass/Vol]13.0 mg/dLNormal7.0-18.0The [facility] SystemComment on above:Performed By: #### LIPA #### [facility] [address] [place] [address] Dr. Ayden Santos nitrogen/Creatinine [Mass ratio]21.3 mg/mgNormalThe [facility] SystemComment on above:Performed By: #### LIPA #### [facility] [address] [place] [address] Dr. Ayden CamAMMONIAon 28-09-2543Taneumg (P) [Moles/Vol]10 umol/LCritically jpv17-39Rmf [facility] SystemComment on above:Performed By: #### AMM #### [facility] [address] [place] [address] Dr. Ayden CamAMYLASEon 06-75-9055Fykxcuf [Catalytic activity/Vol]109 U/LNormal 25-115The [facility] SystemComment on above:Performed By: #### COLE #### [facility] [address] [place] [address] Dr. Ayden Abdul AUTO DIFFon 62-30-4819JNFT #0.0 103/ulNormal0.0-0.1The [facility] SystemComment on above:Performed By: #### LIPA #### [facility] [address] [place] [address] Dr. Ayden CamBasophils/100 WBC (Bld)0.3 %Normal0.2-2.0The [facility] Comment on above:Performed By: #### LIPA #### [facility] [address] [place] [address] Dr. Ayden Steele #0.3 103/ulNormal0.0-0.7The [facility] SystemComment on above: Performed By: #### LIPA #### [facility] [address] [address] [address] Ayden Koehlerosinophils/100 WBC (Bld)4.3 %Normal0.9-7.0The [facility] Comment on above:Performed By: #### LIPA #### [facility] [address] [place] [address] Dr. Ayden Koehlerrythrocyte distribution width (RBC) [Ratio]12.2 %Rlsbnv61.0-15.0 The [facility] SystemComment on above:Performed By: #### LIPA #### [facility] [address] [place] [address] Dr. Ayden CamHematocrit (Bld) [Volume fraction]38.9 %Metslx62.0-48.0The [facility] SystemComment on above:Performed By: #### LIPA #### [facility] [address] [place] [address] Dr. Ayden CamHemoglobin (Bld) [Mass/Vol]12.8 g/iWJkhxxo67.0-16.0The [facility] SystemComment on above:Performed By: #### LIPA #### [facility] [address] [place] [address] Dr. Ayden Dickson #0.01 10e3/ulNormal0.00-0.03The [facility] SystemComment on above:Performed By: #### LIPA #### [facility] [address] [place] [address] Dr. Ayden Dickson %0.2 %Normal0.0-0.5The [facility] SystemComment on above: Performed By: #### LIPA #### [facility] [address] [place] [address] Dr. Ayden PikeH #1.9 103/ulNormal1.2-3.8The [facility] SystemComment on above:Performed By: #### LIPA #### [facility] [address] [place] [address] Dr. Ayden Workmanmphocytes/100 WBC (Bld)31.4 %Zltebw48.5-60.0The [facility] SystemComment on above:Performed By: #### LIPA #### [facility] [address] [place] [address] Dr. Ayden Melendez DIFF REQNONormalThe [facility] SystemComment on above: Performed By: #### LIPA #### [facility] [address] [place] [address] Dr. Ayden Mccormack (RBC) [Entitic mass]29.6 wkPgglog21.7-34.0The [facility] HospitalComment on above:Performed By: #### LIPA #### [facility] [address] [place] [address] Dr. Ayden Mccormack (RBC) [Mass/Vol]32.9 g/lWVheqkp38.9-35.2The [facility] SystemComment on above:Performed By: #### LIPA #### [facility] [address] [place] [address] Dr. Ayden Mccormack (RBC) [Entitic vol]89.8 nNJwjmmu37.0-99.0The [facility] SystemComment on above:Performed By: #### LIPA #### [facility] [address] [place] [address] Dr. Ayden Thornton #0.6 103/ulNormal0.3-0.8The [facility] SystemComment on above:Performed By: #### LIPA #### [facility] [address] [place] [address] Dr. Ayden Atkinsonocytes/100 WBC (Bld)10.1 %Normal1.7-12.0The [facility] Comment on above:Performed By: #### LIPA #### [facility] [address] [place] [address] Dr. Ayden Garrett #3.2 103/ulNormal1.4-6.5The [facility] SystemComment on above:Performed By: #### LIPA #### [facility] [address] [place] [address] Dr. Ayden Hongutrophils/100 WBC (Bld)53.7 %Qadrnv61.0-75.0The [facility] SystemComment on above:Performed By: #### LIPA #### [facility] [address] [place] [address] Dr. Ayden Jones mean volume (Bld) [Entitic vol]9.7 fLNormal9.5-13.5The [facility] SystemComment on above:Performed By: #### LIPA #### [facility] [address] [place] [address] Dr. Ayden CamPLT168 103/iiRcowti156-295Twe [facility] SystemComment on above: Performed By: #### LIPA #### [facility] [address] [place] [address] Dr. Ayden CamRBC4.33 106/ulNormal4.20-5.40The [facility] SystemComment on above:Performed By: #### LIPA #### [facility] [address] [place] [address] Dr. Ayden CamWBC6.0 103/ulNormal4.0-11.0The [facility] SystemComment on above: Performed By: #### LIPA #### [facility] [address] [place] [address] Dr. Ayden CamLIPASEon 93-10-7061Fxkele [Catalytic activity/Vol]151.0 U/LNormal 73.0-393.0The [facility] SystemComment on above:Performed By: #### LIPA #### [facility] [address] [place] [address] Dr. Ayden Asencio PROFILEon 03-42-4358Wpxpwvf [Mass/Vol]3.2 g/dLCritically low3.4-5.0The [facility] SystemComment on above:Performed By: #### LACT #### [facility] [address] [place] [address] Dr. Ayden CamAlbumin/Globulin [Mass ratio]1.1 {ratio}NormalThe [facility] SystemComment on above:Performed By: #### LACT #### [facility] [address] [place], [place] [id number] Dr. Ayden Tobar [Catalytic activity/Vol]82 U/YHeeqxb26-723Nlx [facility] SystemComment on above:Performed By: #### LACT #### [facility] [address] [address] [address] Ayden CoburnT [Catalytic activity/Vol]70 U/LCritically hxfy57-53Glf [facility] SystemComment on above:Performed By: #### LACT #### [facility] [address] [address] [address] Ayden CamAST [Catalytic activity/Vol]36 U/JUzshrq61-72Pzh [facility] SystemComment on above:Performed By: #### LACT #### [facility] [address] [place] [address] Dr. Ayden Sears, CONJUGATED0.1 mg/dLNormal0.0-0.2The [facility] Comment on above:Performed By: #### LACT #### [facility] [address] [place] [address] Dr. Ayden Hackettirubin [Mass/Vol]0.3 mg/dLNormal0.2-1.0[facility] Comment on above:Performed By: #### LACT #### [facility] [address] [place] [address] Dr. Ayden CamGlobulin (S) [Mass/Vol]3.0 g/dLNormalThe [facility] SystemComment on above:Performed By: #### LACT #### [facility] [address] [place] [address] Dr. Ayden CamProtein [Mass/Vol]6.2 g/dLCritically low6.4-8.2The [facility] SystemComment on above:Performed By: #### LACT #### [facility] [address] [place] [address] Dr. Ayden CamPROF CHEM 8 (BAS METB)on 68-91-5436Mzpoo gap [Moles/Vol]9.5 mmol/LNormalThe [facility] SystemComment on above:Performed By: #### BMP #### [facility] [address] [address] [address] Ayden CamCalcium [Mass/Vol]8.9 mg/dLNormal8.5-10.1The [facility] Comment on above:Performed By: #### BMP #### [facility] [address] [address] [address] Ayden CamChloride [Moles/Vol]105 mmol/JKvpvgb94-437HbfPremier Health At[facility] Comment on above:Performed By: #### BMP #### [facility] [address] [address] [address] Ayden CamCO2 [Moles/Vol]29.6 mmol/VUmsygw18.0-32.0The [facility] Comment on above:Performed By: #### BMP #### [facility] [address] [place] [address] Dr. Ayden CamCreatinine [Mass/Vol]0.56 mg/dLNormal0.55-1.02The [facility] SystemComment on above:Performed By: #### BMP #### [facility] [address] [address] [address] Hensley ChangEGFR-AF COLOMBIAN>60Normal>=60[facility] Atrium Medical CenterComment on above:Performed By: #### BMP #### [facility] [address] [place] [address] Dr. Ayden KoehlerGFR-NON AF COLOMBIAN>60Normal>=60The [facility] SystemComment on above:Performed By: #### BMP #### [facility] [address] [address] [address] Ayden CamGlucose [Mass/Vol]88 mg/yGOtaqff72-838SlePremier Health Atrium Medical Center Comment on above:Performed By: #### BMP #### [facility] [address] [address] [address] Ayden CamPotassium [Moles/Vol]4.1 mmol/LNormal3.5-5.1The [facility] Comment on above:Performed By: #### BMP #### [facility] [address] [address] [address] Ayden Nguyendium [Moles/Vol]140 mmol/RQewxlq823-285QxmPremier Health Atrium Medical Center Comment on above:Performed By: #### BMP #### [facility] [address] [address] [address] Ayden CamUrea nitrogen [Mass/Vol]15.0 mg/dLNormal7.0-18.0The [facility] SystemComment on above:Performed By: #### BMP #### [facility] [address] [address] [address] Ayden Santos nitrogen/Creatinine [Mass ratio]26.8 mg/mgNoTriHealth McCullough-Hyde Memorial HospitalComment on above:Performed By: #### BMP #### [facility] [address] [address] [address] Ayden Hallman Jhony 89-19-9273NI ABDEXAMINATION: US ABD HISTORY: Abdominal pain ; [...] Electronically authenticated by: RONAN TORIBIO Date: 2022-10-05 09:52[facility] SystemXR KUB 1 VIEWon [id number] KUB 1 VIEWEXAMINATION: XR KUB 1 VIEW [...] Electronically authenticated by: RONAN TORIBIO Date: 2022-10-05 09:55NormalThe [facility] SystemAMYLASEon 03-49-9526Qhcnvre [Catalytic activity/Vol]124 U/L Critically vjml13-416Yeo [facility] SystemComment on above:Performed By: #### LIPA, COLE, CMP #### [facility] [address] [address] [address] Ayden Abdul AUTO DIFFon 68-38-8636CQWN #0.0 103/ulNormal0.0-0.1The [facility] SystemComment on above:Performed By: #### LIPA #### [facility] [address] [place] [address] Dr. Ayden Larsensophils/100 WBC (Bld)0.3 %Normal0.2-2.0[facility] Comment on above:Performed By: #### LIPA #### [facility] [address] [place] [address] Dr. Ayden Steele #0.2 103/ulNormal0.0-0.7The [facility] SystemComment on above: Performed By: #### LIPA #### [facility] [address] [place] [address] Dr. Ayden Koehlerosinophils/100 WBC (Bld)2.9 %Normal0.9-7.0The [facility] Comment on above:Performed By: #### LIPA #### [facility] [address] [place] [address] Dr. Ayden Koehlerrythrocyte distribution width (RBC) [Ratio]12.3 %Ztdctg67.0-15.0 The [facility] SystemComment on above:Performed By: #### LIPA #### [facility] [address] [place] [address] Dr. Ayden CamHematocrit (Bld) [Volume fraction]42.0 %Tvatgd44.0-48.0The [facility] SystemComment on above:Performed By: #### LIPA #### [facility] [address] [place] [address] Dr. Ayden CamHemoglobin (Bld) [Mass/Vol]14.3 g/vGLsupaz17.0-16.0The [facility] HospitalComment on above:Performed By: #### LIPA #### [facility] [address] [place] [address] Dr. Ayden Dickson #0.02 10e3/ulNormal0.00-0.03The [facility] SystemComment on above:Performed By: #### LIPA #### [facility] [address] [place] [address] Dr. Ayden Dickson %0.3 %Normal0.0-0.5The [facility] SystemComment on above: Performed By: #### LIPA #### [facility] [address] [place] [address] Dr. Ayden Figueroa #1.7 103/ulNormal1.2-3.8The [facility] SystemComment on above:Performed By: #### LIPA #### [facility] [address] [place] [address] Dr. Ayden Pikehocytes/100 WBC (Bld)22.5 %Ncghrs65.5-60.0The [facility] SystemComment on above:Performed By: #### LIPA #### [facility] [address] [place] [address] Dr. Ayden ChinoUAL DIFF REQNONormalThe [facility] SystemComment on above: Performed By: #### LIPA #### [facility] [address] [place] [address] Dr. Ayden Salgado (RBC) [Entitic mass]30.1 hoOyknut20.7-34.0The [facility] SystemComment on above:Performed By: #### LIPA #### [facility] [address] [place] [address] Dr. Ayden Mccormack (RBC) [Mass/Vol]34.0 g/bXSzuccr77.9-35.2The [facility] SystemComment on above:Performed By: #### LIPA #### [facility] [address] [place] [address] Dr. Ayden MccormackV (RBC) [Entitic vol]88.4 vMRnetfl51.0-99.0The [facility] SystemComment on above:Performed By: #### LIPA #### [facility] [address] [place] [address] Dr. Ayden Thornton #0.5 103/ulNormal0.3-0.8The [facility] SystemComment on above:Performed By: #### LIPA #### [facility] [address] [place] [address] Dr. Ayden Atkinsonocytes/100 WBC (Bld)6.0 %Normal1.7-12.0The [facility] Comment on above:Performed By: #### LIPA #### [facility] [address] [place] [address] Dr. Ayden Garrett #5.2 103/ulNormal1.4-6.5The [facility] SystemComment on above:Performed By: #### LIPA #### [facility] [address] [place] [address] Dr. Ayden Hongutrophils/100 WBC (Bld)68.0 %Hrskmz99.0-75.0The [facility] SystemComment on above:Performed By: #### LIPA #### [facility] [address] [place] [address] Dr. Ayden Limonlet mean volume (Bld) [Entitic vol]9.6 fLNormal9.5-13.5The [facility] SystemComment on above:Performed By: #### LIPA #### [facility] [address] [place] [address] Dr. Ayden CamPLT183 103/oaGhjrog793-817Stn [facility] SystemComment on above: Performed By: #### LIPA #### [facility] [address] [place] [address] Dr. Ayden CamRBC4.75 106/ulNormal4.20-5.40The [facility] SystemComment on above:Performed By: #### LIPA #### [facility] [address] [place] [address] Dr. Ayden CamWBC7.6 103/ulNormal4.0-11.0The [facility] SystemComment on above: Performed By: #### LIPA #### [facility] [address] [place] [address] Dr. Ayden CamCovid-19 PCR ([facility])on 50-32-8041CVUT-CoV-2 (COVID-19) RNA LOWELL+probe Ql (Unsp spec)Not detectedNormalNOT DETECTEDThe [facility] Comment on above:Result Comment: When diagnostic testing [...] for this test is supported by the [employer] Chief Inspector of Health and Human Service's declaration that [...] longer be used).Performed By: #### LIPA #### [facility] [address] [place] [address] Dr. Hensley ChangEMegan URINE PROFILEon 35-38-4291Qvisrathz Ql (U)NegativeNormal NEGATIVEThe [facility] SystemComment on above:Performed By: #### LACT #### [facility] [address] [place] [address] Dr. Ayden CamClarity (U)CLEARNormalCLEARPremier Health Atrium Medical CenterComment on above: Performed By: #### LACT #### [facility] [address] [address] [address] Ayden Santos (U)LT. YELLOWNormalYELLOWPremier Health Atrium Medical CenterComment on above:Performed By: #### LACT #### [facility] [address] [address] [address] Ayden Pham micrscopic examination will be performed if indicated. NormalThe [facility] HospitalComment on above:Performed By: #### LACT #### [facility] [address] [address] [address] Ayden CamGlucose Ql (U)NegativeNormalNEGATIVEPremier Health Atrium Medical CenterComment on above:Performed By: #### LACT #### [facility] [address] [place] [address] Dr. Ayden CamHemoglobin Ql (U)NegativeNormalNEGATIVEGood Samaritan Hospital on above:Performed By: #### LACT #### [facility] [address] [address] [address] Ayden CamKetones Ql (U)NegativeNormalNEGATIVEPremier Health Atrium Medical CenterComment on above:Performed By: #### LACT #### [facility] [address] [place] [address] Dr. Ayden CamLEUKOCYTESNegativeNormalNEGATIVEPremier Health Atrium Medical CenterComment on above:Performed By: #### LACT #### [facility] [address] [address] [address] Ayden CamNitrite Ql (U)NegativeNormalNEGATIVEPremier Health Atrium Medical CenterComment on above:Performed By: #### LACT #### [facility] [address] [address] [address] Ayden CampH (U)8.5 [pH]Normal5-9[facility] Medical CenterComment on above: Performed By: #### LACT #### [facility] [address] [address] [address] Ayden aCmSPEC GRAVITY1.135Cnnnhz4.005-<=1.025The [facility] SystemComment on above:Performed By: #### LACT #### [facility] [address] [place] [address] Dr. Ayden Clark PROTEINNegativeNormalNEGATIVE/ TRACEThe [facility] Comment on above:Performed By: #### LACT #### [facility] [address] [place] [address] Dr. Ayden Alcala MICRO INDNOT INDICATEDNormalThe [facility] SystemComment on above:Performed By: #### LACT #### [facility] [address] [place] [address] Dr. Ayden CamUrobilinogen Qn (U)0.2 {Peggy'U}/dLNormal0.2 - 1.0The [facility] SystemComment on above:Performed By: #### LACT #### [facility] [address] [place] [address] Dr. Ayden CamLACTATE/LACTIC ACIDon 98-46-5105Mllrchj [Moles/Vol]0.8 mmol/L Normal0.4-1.9The [facility] SystemComment on above:Performed By: #### LACT #### [facility] [address] [place] [address] Dr. Ayden CamLIPASEon 61-81-3712Hvwtix [Catalytic activity/Vol]170.0 U/LNormal 73.0-393.0The [facility] SystemComment on above:Performed By: #### LACT #### [facility] [address] [place] [address] Dr. Ayden CamPROF 14(COMP METB)on 82-48-9922Jluzfxg [Mass/Vol]3.8 g/dLNormal 3.4-5.0The [facility] SystemComment on above:Performed By: #### LACT #### [facility] [address] [place] [address] Dr. Ayden CamAlbumin/Globulin [Mass ratio]1.1 {ratio}NormalThe [facility] SystemComment on above:Performed By: #### LACT #### [facility] [address] [address] [address] Ayden CoburnP [Catalytic activity/Vol]101 U/LFignka12-966Alm [facility] SystemComment on above:Performed By: #### LACT #### [facility] [address] [address] [address] Ayden CoburnT [Catalytic activity/Vol]94 U/LCritically ifbf96-69Pwi [facility] SystemComment on above:Performed By: #### LACT #### [facility] [address] [address] [address] Ayden Terrell gap [Moles/Vol]11.1 mmol/LNormalThe [facility] Comment on above:Performed By: #### LACT #### [facility] [address] [address] [address] Ayden CamAST [Catalytic activity/Vol]59 U/LCritically dxyi82-91Irk [facility] SystemComment on above:Performed By: #### LACT #### [facility] [address] [place] [address] Dr. Ayden CamBilirubin [Mass/Vol]0.3 mg/dLNormal0.2-1.0The [facility] Comment on above:Performed By: #### LACT #### [facility] [address] [place] [address] Dr. Ayden CamCalcium [Mass/Vol]9.5 mg/dLNormal8.5-10.1[facility] Comment on above:Performed By: #### LACT #### [facility] [address] [place] [address] Dr. Ayden CamChloride [Moles/Vol]99 mmol/TUhteed29-923Sqo [facility] Comment on above:Performed By: #### LACT #### [facility] [address] [address] [address] Ayden CamCO2 [Moles/Vol]29.7 mmol/WFxbvik89.0-32.0The [facility] Comment on above:Performed By: #### LACT #### [facility] [address] [place] [address] Dr. Ayden Cuellaratinine [Mass/Vol]0.61 mg/dLNormal0.55-1.02The [facility] SystemComment on above:Performed By: #### LACT #### [facility] [address] [place] [address] Dr. Ayden KoehlerGFR-AF COLOMBIAN>60Normal>=60The [facility] SystemComment on above:Performed By: #### LACT #### [facility] [address] [address] [address] Ayden KoehlerGFR-NON AF COLOMBIAN>60Normal>=60The [facility] SystemComment on above:Performed By: #### LACT #### [facility] [address] [place] [address] Dr. Ayden CamGlobulin (S) [Mass/Vol]3.4 g/dLNormalThe [facility] SystemComment on above:Performed By: #### LACT #### [facility] [address] [place] [address] Dr. Ayden CamGlucose [Mass/Vol]111 mg/dLCritically uufv93-449Uwl [facility] SystemComment on above:Performed By: #### LACT #### [facility] [address] [place] [address] Dr. Ayden CamPotassium [Moles/Vol]3.8 mmol/LNormal3.5-5.1[facility] Comment on above:Performed By: #### LACT #### [facility] [address] [place] [address] Dr. Ayedn CamProtein [Mass/Vol]7.2 g/dLNormal6.4-8.2The [facility] Comment on above:Performed By: #### LACT #### [facility] [address] [place] [address] Dr. Ayden CamSodium [Moles/Vol]136 mmol/TDqqfrd971-480Mxs [facility] Comment on above:Performed By: #### LACT #### [facility] [address] [place] [address] Dr. Ayden CamUrea nitrogen [Mass/Vol]23.0 mg/dLCritically high7.0-18.0[facility] Medical CenterComment on above:Performed By: #### LACT #### [facility] [address] [place] [address] Dr. Ayden CamUrea nitrogen/Creatinine [Mass ratio]37.7 mg/mgHolzer Health SystemComment on above:Performed By: #### LACT #### [facility] [address] [place] [address] Dr. Ayden Negrete, HIGH SENSITIVITYon 90-99-9124CRGODL2.9 pg/mLNormal 4.0-51.3The [facility] SystemComment on above:Result Comment: CUT-OFF POINTS HAVE BEEN ESTABLISHED BASED ON THE FOURTH UNIVERSAL DEFINITIONS OF MYOCARDIAL INFARCTION. THE UPPER REFERENCE LIMIT (URL) OF TROPONIN, DEFINED THE 99TH PERCENTILE OF cTnI DISTRIBUTION IN A REFERENCE POPULATION, HAS BEEN CONFIRMED THE DECISION THRESHOLD FOR [place] DIAGNOSIS.Performed By: #### LACT #### [facility] [address] [place] [address] Dr. Ayden CamLIPID PROFILEon 22-08-9848NFPT-HDL RATIO NORMSMercy Health St. Rita's Medical CenterComment on above:Result Comment: 3.3 - 4.4 LOW RISK 4.4 - 7.1 AVERAGE RISK 7.1 - 11.0 MODERATE RISK >11.0 HIGH RISKPerformed By: #### LIPA #### [facility] [address] [place] [address] Dr. Ayden CamCholesterol [Mass/Vol]116 mg/dLNormal<=200[facility] Comment on above:Performed By: #### LIPA #### [facility] [address] [place] [address] Dr. Ayden CamCholesterol in HDL [Mass/Vol]59 mg/sWXptrtj49-07TsuPremier Health Atrium Medical CenterComment on above:Performed By: #### LIPA #### [facility] [address] [place] [address] Dr. Ayden Leroyesterol in LDL [Mass/Vol]34.0 mg/dLHolzer Health SystemComment on above:Performed By: #### LIPA #### [facility] [address] [address] [address] Ayden CamCholesterol.total/Cholesterol in HDL [Mass ratio]2.0 {ratio} NormalPremier Health Atrium Medical CenterComment on above:Performed By: #### LIPA #### [facility] [address] [address] [address] Ayden CostelloL NORMAL> or = 60 mg/dl - LOW CARDIOVASCULAR RISK <40 mg/dl - HIGH CARDIOVASCULAR RISKHolzer Health SystemComment on above:Performed By: #### LIPA #### [facility] [address] [address] [address] Ayden CamLDL CALC NORMALSEE [facility] HospitalComascension borgess hospital on above:Result Comment: <100 mg/dl OPTIMAL 100 - 129 mg/dl NEAR OR ABOVE OPTIMAL 130 - 159 mg/dl BORDERLINE HIGH 160 - 189 mg/dl HIGH >190 mg/dl VERY HIGH Performed By: #### LIPA #### [facility] [address] [place] [address] Dr. Ayden CamTriglyceride [Mass/Vol]115 mg/dLNormal<=150[facility] Comment on above:Performed By: #### LIPA #### [facility] [address] [place] [address] Dr. Ayden CamVLDL CALC23.0 mg/dLNoTriHealth McCullough-Hyde Memorial HospitalComment on above: Performed By: #### LIPA #### [facility] [address] [address] [address] Ayden CamVITAMIN D 25 OHon 49-42-2563OXG D 25-OH89.3 ng/mLNormalPremier Health Atrium Medical CenterComascension borgess hospital on above:Performed By: #### VITAD #### [facility] [address] [place] [address] Dr. Ayden CamVIT D RANGESSEE [facility] HospitalComment on above: Result Comment: <20 ng/mL Vit D deficient 20 - <30 ng/mL Vit D insufficient 30 - 100 ng/mL Vit D sufficient >100 ng/mL Potential ToxicityPerformed By: #### VITAD #### [facility] [address] [address] [address] Ayden Farrell Visit (Cardiology)on 54-42-8825Jvaiot-up visit Diagnoses/Problems Assessed Atherosclerosis of coronary artery of [place] heart without angina pectoris (414.01) (I25.10) History of coronary artery bypass graft (V45.81) (Z95.1) Ischemic cardiomyopathy (414.8) (I25.5) Hyperlipidemia (272.4) (E78.5) Essential hypertension, benign (401.1) (I10) Never a smoker Overweight with body mass index (BMI) of 26 to 26.9 in adult (278.02,V85.22) (E66.3,Z68.26) Paroxysmal SVT (supraventricular tachycardia) (427.0) (I47.1) Orders Atherosclerosis of coronary artery of [place] heart without angina pectoris, Essential hypertension, benign, Hyperlipidemia Basic Metabolic Panel; Status:Active - Retrospective Authorization; Requested for:[id number]; Lipid Panel; Status:Active - Retrospective Authorization; Requested for:[id number]; Overweight with body mass index (BMI) of 26 to 26.9 in adult Healthy Weight Tips; Status:Complete - Retrospective Authorization; Done: [id number] Some eating tips that can help you lose weight.; Status:Complete - Retrospective Authorization; Done: [id number] SocHx: Never a smoker Tobacco Use Screening; Status:Complete; Done: [id number] Patient Instructions Please bring all medicines, vitamins, [...] CHEST PAIN.CALL 911 IF PAIN PERSISTS. Nyamyc [id number] UNIT/GM External Powderapply topically to affected area [...] s (more content not included)...NormalUH TouchworksTobacco Screening.on 18-61-9286Oqzkg depression screening assessmentNoCity Emergency Hospital TrunqShow DO Work Phone: Fall risk assessmenta) No falls within the last year [facility] TrunqShow DO Work Phone: Tobacco use status CPHSb) NoMProsser Memorial Hospital Easiaid DO Work Phone: MRI Ankle w/o Lefton 80-32-3025PXQ Ankle w/o Left HISTORY: Dog jumped on [...] and signed by Wilder Arango on 08/01/2022 1102NormalNortUniversity Hospitals Lake [facility] SpecialistTobacco Screening.on 38-31-4826Vddnvex use status CPHSb) [facility] Heart-Irvin [address] DO Work Phone: Vital Signs Date TimeVital SignValuePerforming TprnbjqbhCcbdrggp61-30-7138 11:45-0400Body onymxk733 cmMattmalik RINALDI Work Phone: NOHannibal Regional HospitalHzbflgtkud28-97-3830 11:45-0400Body mass index (BMI) [Ratio]30.82 kg/e6Dcslzftlilli RINALDI Work Phone: NOHannibal Regional HospitalSocgpddlda05-99-4012 11:45-0400Body gcekdv88.93 kgMalilli RINALDI Work Phone: [facility] HospitalDfnsgrmryw45-95-9318 09:53-0500Body ssuknf980 cm Celso Garibay DO Work Phone: [facility]12-06-2024 09:53-0500 Body mass index (BMI) [Ratio]30.11 kg/f2NrhimynCelso Garibay DO Work Phone: [facility]12-06-2024 09:53-0500 Body nivqlv58.11 kgCelso Garibay DO Work Phone: [facility]12-06-2024 09:53-0500 Diastolic blood uiphjcsb50 mm[Hg]Celso Garibay DO Work Phone: [facility]12-06-2024 09:53-0500 Heart rate66 /minCelso Garibay DO Work Phone: [facility]12-06-2024 09:53-0500 Systolic blood yrisqooh896 mm[Hg]Celso Cintrondon DO Work Phone: [phone]11-19-2024 01:03-0500 Diastolic blood ebwhqije46 mm[Hg]Ashley Grigsby MD Work Phone: [phone]11-19-2024 01:03-0500 Heart rate60 /Alfonso Grigsby MD Work Phone: [phone]11-19-2024 01:03-0500 Respiratory rate20 /Alfonso Grigsby MD Work Phone: [phone]11-19-2024 01:03-0500 SaO2% (BldA) [Mass fraction]96 %Ashley Grigsby MD Work Phone: [phone]11-19-2024 01:03-0500 Systolic blood glewzgoo120 mm[Hg]Ashley Grigsby MD Work Phone: [phone] [place], [place] [address]11-18-2024 20:55-0500 Body hefmxy073.02 cmAshley Grigsby MD Work Phone: [phone])[address]11-18-2024 20:55-0500 Body jmyjltbrbkc58.4 [degF]Ashley Grigsby MD Work Phone: [phone]11-18-2024 20:55-0500 Body .5 kgAshley Grigsby MD Work Phone: [phone]11-13-2024 12:21-0500 Body ymqeav814 cmCelso Garibay DO Work Phone: [facility]11-13-2024 12:21-0500 Body mass index (BMI) [Ratio]30.47 kg/x8AjcyirsCelso Garibay DO Work Phone: [phone]11-13-2024 12:21-0500 Body .02 kgWideshaun Garibay DO Work Phone: [facility]11-13-2024 12:21-0500 Diastolic blood eghexvpk02 mm[Hg]Celso Garibay DO Work Phone: [facility]11-13-2024 12:21-0500 Heart rate76 /Evan Garibay DO Work Phone: [facility]11-13-2024 12:21-0500 Systolic blood xdsonuqa761 mm[Hg]Celso Garibay DO Work Phone: [facility]11-05-2024 11:08-0500 Blood Pressure LocationJENNIFER SALENA [facility]11-05-2024 11:08-0500Body krenmtbnged40.6 [degF] SALENA [facility]11-05-2024 11:08-0500Diastolic blood zyxxpoyw93 mm[Hg] SALENA [facility]11-05-2024 11:08-0500Heart rate68 /minJENNIFER SALENA [facility]11-05-2024 11:08-0500Respiratory rate16 /minJENNIFER SALENA [facility]11-05-2024 11:08-0500Systolic blood mm[Hg] SALENA [facility]07-11-2024 15:08-0400Blood Pressure LocationJENNIFER SALENA [facility]07-11-2024 15:08-0400Diastolic blood iostnwlf06 mm[Hg]JENNIFER MARTINO [facility]07-11-2024 15:08-0400Heart rate75 /minJENNIFER SALENA [facility]07-11-2024 15:08-0400Respiratory rate16 /minJENNIFER SALENA [facility]07-11-2024 15:08-0400Systolic blood kqnnfqxu253 mm[Hg]JENNIFER MARTINO [facility]05-31-2024 11:15-0400Body cmMet[address] 02-29-2024 11:15-0400Body mass index (BMI) [Ratio]29.58 kg/d1Pcfos[address]05-31-2024 11:15-0400Body dluzyj05.[address]04-18-2024 16:03-0400Body cdvrwe071.3 cmStephanie Berger MD PhD Work Phone: [facility]04-18-2024 16:03-0400Body mass index (BMI) [Ratio]30.16 kg/a8CysebStephanie Berger MD PhD Work Phone: [facility]04-18-2024 16:03-0400Body .47 kgStephanie Berger MD PhD Work Phone: [facility]11-14-2023 15:29-0500Body .3 cmCelso Garibay DO Work Phone: [facility]11-14-2023 15:29-0500 Body mass index (BMI) [Ratio]28.07 kg/r6IwixormCelso Garibay DO Work Phone: [facility]11-14-2023 15:29-0500 Body wbaafc41.03 kgWideshaun Garibay DO Work Phone: [facility]11-14-2023 15:29-0500 Diastolic blood fvmfnkes79 mm[Hg]Celso Garibay DO Work Phone: [facility]11-14-2023 15:29-0500 Heart rate56 /minWideshaun Garibay DO Work Phone: [facility]11-14-2023 15:29-0500 Systolic blood axtaajur087 mm[Hg]Celso Garibay DO Work Phone: [facility]09-18-2023 15:15-0400 Diastolic blood hwtuxwyj80 mm[Hg]Gaby Jenkinsy Tello DO Work Phone: [employer]09-18-2023 15:15-0400Heart rate70 /minElpidiomen Deuce Tello DO Work Phone: [employer]09-18-2023 15:15-0400 Respiratory rate18 /minCarmen Deuce Tello DO Work Phone: [employer]09-18-2023 15:15-1493EfW1% (BldA) [Mass fraction]96 %Gaby Deuce Tello DO Work Phone: [employer]09-18-2023 15:15-0400Systolic blood gamjrmzq064 mm[Hg]Gaby Deuce Tello DO Work Phone: [employer]09-18-2023 14:36-0400Body kvaxqofvfzq98 [degF]Gaby Deuce Tello DO Work Phone: [employer]09-18-2023 13:30-0400Body hoaepf422 cmCarmen Deuce Tello DO Work Phone: [employer]09-18-2023 13:30-0400Body mass index (BMI) [Ratio]27.03 kg/j7Nbubee Deuce Tello DO Work Phone: [facility]09-18-2023 13:30-0400Body .22 kgCarkizzy Tello DO Work Phone: [facility]02-02-2023 15:02-0500Diastolic blood ibbtfjog71 mm[Hg]MD Ashley Grigsby Work Phone: 1(723)220-[address] [place], [place] 6058502-02-2023 15:02-0500 Heart rate78 /minMD Ashley Gordilloy Work Phone: 1(016)500-[address] [place], [place] 6058502-02-2023 15:02-0500 Respiratory rate18 /minMD Ramirez Hoy Work Phone: 1(131)[facility]-[address] [place], [place] 6058502-02-2023 15:02-0500 SaO2% (BldA) [Mass fraction]100 %MD Ashley Grigsby Work Phone: 1(241)[facility]-[address] [place], [place] 6058502-02-2023 15:02-0500 Systolic blood kflndjas261 mm[Hg]MD Ashley Grigsby Work Phone: 1(570)061-[address] [place], [place] 6058502-02-2023 13:20-0500 Body iyebml975.02 cmMD Ashley Hoy Work Phone: 1(116)[facility]-[address] [place], [place] 6058502-02-2023 13:20-0500 Body sghkwgdtajz82.2 [degF]MD Ashley Grigsby Work Phone: 1(915)[facility]-[address] [place], [place] 6058502-02-2023 13:20-0500 Body .78 kgMD Ashley Grigsby Work Phone: 1(694)[address]02-01-2023 13:26-0500 Diastolic blood pjqxotrs30 mm[Hg]MD Ashley Grigsby Work Phone: 1(793)[facility]-[address] [place], [place] 6058502-01-2023 13:26-0500 Heart rate59 /minMD Ashley Grigsby Work Phone: 1(132)[address]02-01-2023 13:26-0500 Respiratory rate20 /minMD Ashley Gordilloy Work Phone: 1(095)056-[address] [place], [place] 6058502-01-2023 13:26-0500 SaO2% (BldA) [Mass fraction]99 %MD Ashley Grigsby Work Phone: 1(990)184-[address] [place], [place] 6058502-01-2023 13:26-0500 Systolic blood zepflidn009 mm[Hg]MD Ashley Grigsby Work Phone: 1(146)904-[address] [place], [place] 6058502-01-2023 10:53-0500 Body mnqede763.02 cmMD Ashley Grigsby Work Phone: 1(972)202-[address] [place], [place] 6058502-01-2023 10:53-0500 Body vrwmpchgdma61.7 [degF]MD Ashley Grigsby Work Phone: 1(182)419-[address] [place], [place] 6058502-01-2023 10:53-0500 Body sazghh59.68 kgMD Ashley Grigsby Work Phone: 1(095)[address]01-24-2023 15:45-0500 Body shsijh888.38 cmImad Asaad Other [employer] Other 01-24-2023 15:45-0500Body mass index (BMI) [Ratio] 24.28 kg/m2Imad Asaad Other [employer] Other 01-24-2023 15:45-0500Body zfcjze98.69 kgImad Asaad Other [employer] Other 01-24-2023 15:45-0500Diastolic blood zkajbvhr94 mm[Hg] Imad Asaad Other [employer] Other 01-24-2023 15:45-0500Systolic blood mm[Hg] Imad Asaad Other [employer] Other 12-20-2022 00:00-382496 1Douglas M Hoy Work Phone: [phone]-Nccub [facility] DO Work Phone: Comment on above:[id number] 15:23-0500Body height 160.02 cmDougcholo Clements Hoy Work Phone: 1([phone])[phone]-Sgjum [facility] DO Work Phone: 1(316) 509-494911-15-2022 15:23-0500Body mass index (BMI) [Ratio] 26.22 kg/e1Hihzwgv M Hoy Work Phone: [phone]-Wglsb [facility] DO Work Phone: 1(620) 978-279011-15-2022 15:23-0500Body surface area Derived from formula1.7 x8Lgremwf M Hoy Work Phone: 1(847)[phone]-Eardy [facility] [address] DO Work Phone: 1(606) 680-268911-15-2022 15:23-0500Body kxocnm02.13 kgDougcholo Clements Hoy Work Phone: 1(317)[phone]-Rwbkw [facility] DO Work Phone: 1(864) 967-391511-15-2022 15:23-0500Diastolic blood kprmfrka40 mm[Hg] Aslhey M Hoy Work Phone: [phone]-Yzceq [facility] DO Work Phone: 1(625) 164-314211-15-2022 15:23-0500Heart rate80 /minDouglas M Hoy Work Phone: [phone]-Megru [facility] DO Work Phone: 1(543) 120-681811-15-2022 15:23-0500Systolic blood rqqbmako481 mm[Hg] Ashley M Hoy Work Phone: [phone]-Lqgpd [facility] DO Work Phone: 1(656) 204-960509-02-2022 08:12-0400Blood Pressure LocationPatrick CARRILLO [facility]09-02-2022 08:12-0400Diastolic blood tvkhyedb57 mm[Hg]Santiago CARRILLO [facility]09-02-2022 08:12-0400Heart rate60 /minPatrick CARRILLO [facility]09-02-2022 08:12-0400Respiratory rate16 /minPatrick CARRILLO [facility]09-02-2022 08:12-0400Systolic blood zcafvryz294 mm[Hg]Santiago CARRILLO [facility]11-17-2021 09:47-0500Body fhljye226.02 cmDougcholo Clements Hoy Work Phone: [phone]-Mmfxi [facility] DO Work Phone: 1([phone] 09:47-0500Body mass index (BMI) [Ratio] 25.01 kg/r6Hragtcc M Hoy Work Phone: [phone]-Tzjod [facility] DO Work Phone: 1(485)[phone] 09:47-0500Body surface area Derived from formula1.67 d5Vetoqim M Hoy Work Phone: [phone](522)[phone]-Eammh [facility] DO Work Phone: 1(777)[phone] 09:47-0500Body ozxekx53.05 kgDouglas M Hoy Work Phone: 1([phone])[phone]-Vvdnm [facility] DO Work Phone: 1(444)[phone] 09:47-0500Diastolic blood dmlmyykp44 mm[Hg] Ashley Elias Hoy Work Phone: 1([phone]-Rovau [facility] DO Work Phone: 1(115)[phone] 09:47-0500Heart rate72 /minDouglkimberly Clements Hoestefani Work Phone: [phone]-Rrhcc [facility] DO Work Phone: 1(475) 393-984711-17-2021 09:47-0500Systolic blood uthznscx471 mm[Hg] Ashley Grigsby Work Phone: 1([phone]-Wchqq [facility] DO Work Phone: Encounters Encounter DateEncounter TypeCare ProviderFacilityStart: 79-68-8633saodlvixpv Santiago CARRILLOFacility:EU BellevueStart: 06-23-2025 End: 00-34-0855Flwjbs flowsheetJr. Bridgett Vann Stepanic DO Work Phone: [facility]icsStart: 06-23-2025 End: 25-09-0376Ttebiy flowsheetJr. Bridgett Vann Stepanic DO Work Phone: [facility] [place] [facility]opaedicsStart: 06-23-2025 End: 25-65-1842ymliqbncfhVM., BRIDGETT Jones AvailableStart: 06-23-2025 End: 30-95-6086Lnfnfi outpatient visit 15 minutesJr. Bridgett Sinha DO Work Phone: [facility] [place] OrthopaedicsComment on above:Tendonitis of wrist, right; Right wrist painStart: 06-16-2025 End: 55-42-3245oudzfsztkqYN., BRIDGETT Jones AvailableStart: 06-02-2025 End: 02-38-0274Kxatjf flowsheetJr. Bridgett Vann Stepanic DO Work Phone: [facility] [place] [facility]opaedicsStart: 06-02-2025 End: 69-25-6917Cifqmi flowsheetJr. Bridgett Vann Stepanic DO Work Phone: [facility] [place] [facility]opaedicsStart: 06-02-2025 End: 02-02-6354Rsihfn outpatient visit 15 minutesJr. Bridgett Angelanic DO Work Phone: [facility] [place] OrthopaedicsComment on above:Chronic pain of right wristStart: 06-02-2025 End: 07-50-8297tithxqpbbbLE., BRIDGETT Jones AvailableStart: 05-27-2025 End: 63-29-4404Ylceyrf encounter procedureRae Louie MD Work Phone: [facility] 111Comment on above:Numbness (Primary Dx); Paresthesias; Carpal tunnel syndrome, leftStart: 05-27-2025 End: 26-89-1682stfmfligskSAMC D BEJNot AvailableStart: 05-15-2025 End: 05-03-2591Qpigjm flowsAlfonzo RINALDI Work Phone: [facility] [place] [facility]opaedicsStart: 05-15-2025 End: 79-78-1960Ysdgnjcielo RINALDI Work Phone: [facility] [place] [facility]opaedicsStart: 05-15-2025 End: 66-00-1093jvmxszmezfNNYVRJC J MEYERNot AvailableStart: 05-15-2025 End: 81-48-5424Kaemof outpatient visit 15 minutesMalilli RINALDI Work Phone: [facility] [place] OrthopaedicsComment on above:Right wrist pain (Primary Dx); Arm weakness; Numbness; Arm pain, right; Ulnar neuropathy of right upper extremityStart: 05-08-2025 End: 94-27-9575niulnsrrrlAESFlower Hospitaltart: 01-30-2025 End: 53-03-6725kpztpsfzqnCADFlower Hospitaltart: 01-17-2025 End: 95-20-5732etiovuqmywGCG Awais Dia [facility] Centertart: 01-09-2025 End: 58-18-6715hmmdfhpbwgRHZ [facility] Hospitaltart: 12-31-2024 End: 75-61-5779qztibpurueFGXFlower Hospitaltart: 12-12-2024 End: 34-32-1493ouylmrkqosUNC [facility] Hospital CenterStart: 11-26-2024 End: 17-35-2303Geiyjn flowsheetRaji RINALDI Work Phone: [facility] ORTHOPAEDICSStart: 11-26-2024 End: 84-98-3546Dvldfo flowsAlfonzo RINALDI Work Phone: [facility]THOPAEDICSStart: 11-26-2024 End: 04-44-3398Ydgxzw outpatient visit 15 minutesMalilli RINALDI Work Phone: [facility] FB ORTHOPAEDICSComment on above:Acute pain of right wrist (Primary Dx); Tendonitis of wrist, rightStart: 11-26-2024 End: 71-29-7008kcauqpjgxgSTCRTLX J MEYERNot AvailableStart: 10-11-2024 End: 36-05-1097kxkmrxgcsyGPGUNJoint Township District Memorial Hospitaltart: 09-05-2024 End: 25-75-4363taouodesbwIHHGIBSSpotsylvania Regional Medical Center AmbulatoryStart: 09-05-2024 End: 87-03-6420Lawctghjorlm care manage srvc [facility]Co[facility] Work Phone: [facility] HospitalComment on above:Atherosclerosis of coronary artery bypass graft of [place] heart without angina pectoris; S/P PTCA (percutaneous transluminal coronary angioplasty); History of coronary artery bypass graft; Ischemic cardiomyopathy; Essential hypertension; Mixed hyperlipidemia; BMI 30.0-30.9,adult; Statin intoleranceStart: 08-20-2024 End: 91-03-3223Mfepzzwfbx and management of inpatientSmatias Arroyo Facility:[facility] Hospitaltart: 83-84-5996Cipggfiiww and management of inpatientAshley Grigsby MD Work Phone: [facility] Work Phone: Start: 58-48-5829xwpzyjwlukv encounterAshley Grigsby MD Work Phone: [facility] Work Phone: start: 08-13-2024 End: 46-94-0606pqmiqnyseoYLOTHFG S [facility] AmbulatoryStart: 08-13-2024 End: 98-76-8489Ognjry outpatient visit 25 [facility] hospitalCelso Garibay DO Work Phone: uh [facility] HospitalComment on above:Atherosclerosis of coronary artery of [place] heart without angina pectoris, unspecified vessel or lesion type; History of coronary artery bypass graft; Essential hypertension, benign; Hyperlipidemia, unspecified hyperlipidemia type; Acute pancreatitis, unspecified complication status, unspecified pancreatitis type ([facility])Start: 08-05-2024 End: 01-18-9499fwdggpdwzuUKMoraima MARTINOFacility:ROMELIA [facility] HospitalueStart: 08-05-2024 End: 52-35-1187Kzkjiid encounter procedureJENNIFER E SALENA [facility] [employer] start: 04-10-2024 End: 30-10-0332Bzxdpoa encounter procedureJENNIFER E SALENA [facility] [employer] start: 03-11-2024 End: 06-58-5652Rimbmoc encounter procedureJENNIFER E SALENA [facility] HospitalHipLogiq start: 03-07-2024 End: 40-00-7273Dqdramzpsp and management of inpatientJOHN A JANESProMedica Obando HospitalStart: 03-06-2024 End: 26-58-4227Lqidwddlyg and management of inpatientYASEEN S ALASTALProMedica Obando HospitalStart: 03-06-2024 End: 07-62-0495Nwjencqmli and management of inpatientYASEEN S ALASTALProMedica Obando HospitalStart: 02-29-2024 End: 47-71-8806Axcjhfbqtc and management of inpatientDOUGLAS M HOYProMedica Springdale HospitalStart: 02-29-2024 End: 72-50-9925Evcrzfrub to [facility] campusMet Pat Phone Call Provider 4 Aarti Wilkerson [facility] Hospitaltart: 02-14-2024 End: 20-56-2489Nawmxr Avani Berger MD PhD Work Phone: [facility] Physicians Ear, Nose and ThroatComment on above:Xerostomia (Primary Dx)Start: 01-17-2024 End: 05-72-8315izwavjoffiLTTKM M WILLIAMSCrystal Clinic Orthopedic Center Ambulatory PPGStart: 01-17-2024 End: 15-04-2961Fejgzv outpatient visit 15 Sahil Berger MD PhD Work Phone: [facility] Physicians Ear, Nose and ThroatComment on above:Dry nose (Primary Dx); Xerostomia; Allergic rhinitis, unspecified seasonality, unspecified triggerStart: 08-14-2023 End: 96-94-2403Frpzjn outpatient visit 15 Becca Garibay DO Work Phone: [facility] HospitalComment on above:Atherosclerosis of coronary artery of [place] heart without angina pectoris, unspecified vessel or lesion type; History of coronary artery bypass graft; Ischemic cardiomyopathy; Essential hypertension, benignStart: 06-18-2023 End: 33-20-7506lqqvbolupdHGIXCBZahira De Souza [facility] HospitalStart: 06-18-2023 End: 75-43-9328Fpnbehdefm hospital visit by Dipika Tello DO Work Phone: mthz ORComment on above:Post-menopausal bleeding; Inclusion cystStart: 46-88-5574Kt RenewalAshley Grigsby Work Phone: [phone]-Tzzyj [facility] DO Work Phone: Start: 49-73-3454Vfjroln encounter procedureAshley Grigsby Work Phone: [phone]-Rprgd [facility] DO Work Phone: Start: 95-27-1020asaqavpzgfJWYWHLO M DUYYMpraful St. Vincent Medical Centertart: 12-12-2022 End: 51-31-0888lhazvyzcnvII Ashley M Hoy Work Phone: [facility] Work Phone: Start: 12-12-2022 End: 00-20-3620Yfvigec encounter procedureMD Ashley Hoy Work Phone: [facility] Work Phone: Start: 11-20-2022 End: 94-77-7839ssosrocvdfBazz Asaad Other [place] [employer] Other Start: 84-88-9623Xghhiojdx encounterImad AsaadFPG GastroenterologyStart: 11-10-2022 End: 86-77-5893Wqitqsa encounter procedureMD Ashley Hoy Work Phone: [facility] [place] Work Phone: Start: 11-02-2022 End: 65-25-3835Ktlwrqpmx to same day surgery centerMD Ashley Hoy Work Phone: [facility] Work Phone: Start: 11-02-2022 End: 01-35-5590mtbuqfqymxLT Ashley M Hoy Work Phone: [facility] Work Phone: Start: 79-32-3377Iriikaacs encounterImad AsaadFPG GastroenterologyStart: 11-01-2022 End: 59-14-0843Sxzdzsyaw to same day surgery centerMD Ashley Hoy Work Phone: [facility] Work Phone: Start: 11-01-2022 End: 93-09-7253fehwylmuqqQS Ashley M Hoy Work Phone: [facility] Work Phone: Start: 10-24-2022 End: 10-87-8547bkptbnbotsNlub Asaad Other [facility] [employer] Other Start: 60-67-9430GJKR visit new patientImapilo AsaadFPG GastroenterologyStart: 10-16-2022 End: 19-70-9565cttxrogwzxLX ASHLEY HOYFacility:B0Dtyve: 10-09-2022 End: 28-82-0653eqbwuyksquEE ASHLEY HOYFacility:L6Qqmrj: 87-23-5614Ce Renewal Ashley Grigsby Work Phone: [phone]-Gbhry [facility] DO Work Phone: Start: 10-04-2022 End: 83-51-4400bgmxtmmothXX ASHLEY HOYFacility:K1Zzble: 09-19-2022 End: 48-53-1375ghqebnlqnlCU DOCTOR MISCFacility:W9Gjycy: 40-77-9151Jpxyds outpatient visit 15 minutesDodonn Grigsby Work Phone: [phone]-Pqebj [facility] DO Work Phone: Start: 77-30-8961Ywdmnml encounter procedureAshley Grigsby Work Phone: [phone]-Svrje [facility] DO Work Phone: Start: 06-02-2022 End: 77-32-9829Hbioxhg encounter procedureSantiago CARRILLO [facility] start: 73-38-3778Qw RenewalAshley Grigsby Work Phone: [phone]-Lwmtq [facility] DO Work Phone: Start: 02-07-2022 End: 36-07-4136Wkvswrp encounter procedureAshley Grigsby MD Work Phone: [facility] LaboratoryStart: 02-07-2022 End: 70-65-6697Ymopmxlsjc hospital visit by Lea Grigsby MD Work Phone: mthz LaboratoryComment on above:Women's annual routine gynecological examinationStart: 63-86-2108Uw RenewalDodonn Clements Duyestefani Work Phone: [phone]-Jaxrs [facility] DO Work Phone: Start: 27-29-5901Ncpjug outpatient visit 15 minutes Ashley Grigsby Work Phone: [phone]-Lkgti [facility] DO Work Phone: Start: 08-19-2019 End: 82-49-0684Bussopfxwe hospital visit by Lea [facility] Comment on above:Well female exam with routine gynecological examStart: 99-18-5683UxunoksbmeVGYTCDOT UNKNOWNFacility:1532Start: 67-36-9423Gljhvloxer PROVIDER UNKNOWNFacility:1532Start: 62-44-1622UtbxzyskjsHxbkcwta:9507 Procedures DateProcedureProcedure DetailPerforming ClinicianStart: 85-73-3943Sekbt wrist 2 viewsMalilli RINALDI Work Phone: Start: 31-25-5426Nomgcc-up visitFoAdams-[facility] Start: 21-72-3897Snfyj wrist 2 viewsMatthortenciaw Ronny RINALDI Work Phone: Start: 94-19-2211Vsgvv chest X-rayAshley Grigsby MD Work Phone: Start: 13-40-5302Ydvpxyfhrxetb flexible transoral ultrasound examJENNIFER SALENA Start: 32-75-8241KhpyjymikucDmssyoj Sheldon DO Work Phone: Start: 27-93-2851Hltyfmi of coronary artery bypass graftingHistory of coronary artery bypass graftWideshaun Garibay DO Work Phone: Start: 23-85-2071Tdpefecowi elastography of liverMD Ashley Grigsby Work Phone: Start: 92-68-9902Mcxdbeej resonance cholangiopancreatographyMD Ashley Grigsby Work Phone: Start: 11-02-2022 End: 07-01-4167FfsqrbmqhslQH Ashley Grigsby Work Phone: Start: 08-73-3430EekldxrlulvAP Ashley Grigsby Work Phone: Start: 79-42-8967YmvihkhujxjBoqrfua Sheldon DO Work Phone: Start: 86-29-2535Mrfgsozxroc observation [Identifier] in Cervix by Cyto stainCarmen Deuce Tello DO Work Phone: Start: 23-21-1428Cbpqdmsl of ganglion cystPatrick CARRILLO Start: 76-43-2909Kpgtimuznzr observation [Identifier] in Cervix by Cyto stainAshley Grigsby MD Work Phone: Start: 91-56-2186Wclbzcvwabs removal of ureteric stent JENNIFER MARTINO Start: 09-13-2017H/O: surgeryS/P nasal septoplastyStephanie Berger MD PhD Work Phone: AppendectomyDouglas M Seb Work Phone: [phone] CARRILLO Bypass of stomachPatrick CARRILLO Cataract surgeryDouglas M Duyy Work Phone: CholecystectomyDouglas M Hoy Work Phone: Coronary artery bypass graftDouglas M Hoy Work Phone: Coronary artery bypass graft operation plannedPatrick CARRILLO Decompression of median nerveDouglas M Duyy Work Phone: Esophagogastrostomy, antesternal or antethoracic Ashley M Hoy Work Phone: History of coronary artery bypass graftingHistory of coronary artery bypass graftDouglas Elias Hoy Work Phone: History of coronary artery bypass graftingHistory of coronary artery bypass graftWilliam S Phoenix DO Work Phone: History of coronary artery bypass graftingHistory of coronary artery bypass graftWilliam S Phoenix DO Work Phone: History of coronary artery bypass graftingHistory of coronary artery bypass graftWilliam S Phoenix DO Work Phone: Kidney operationDouglas Elias Hoy Work Phone: Operation on noseDouglas M Hoy Work Phone: Peripheral neuroplastyDouglas M Hoy Work Phone: Repair of inguinal herniaPatrick CARRILLO Total colonoscopyDouglas M Hoy Work Phone: Plan of Treatment DateCare ActivityDetailAuthorStart: 98-99-4330Dtfhrwpfz for malignant neoplasm of colonPaulding County HospitalStegnar: 06-28-0309Wtpmcrzrg for malignant neoplasm [facility]ixN[facility]: 08-18-2025 End: 35-66-9668Yxzotxj encounter kzqxeplti01/18/2025 11:20 AM EST Office Visit [place] [address] [facility] [address] [place] [address] Celso Garibay, DO [address] [facility] [address] [place] [address] [facility]: 08-04-2025 End: 43-23-4272Dkjlrsr encounter embiivcwp24/04/2025 10:45 AM EST Office Visit [facility] [place] [address] Jr. Bridgett Sinha, DO [address] [place] [address] [facility]icsStart: 08-03-2025 End: 50-63-0913Kdfevmq aminotransferase [Enzymatic activity/volume] in Serum or Plasma by With P-5'-PAlanine Aminotransferase Lab Routine Hyperlipidemia, unspecified hyperlipidemia type Expected: 08/03/2025 (Approximate), Expires: 08/13/2025[facility] Work Phone: Comment on above:Expected: 08/03/2025 (Approximate), Expires: 08/13/2025Start: 08-03-2025 End: 34-08-0740Pmjjqtsry aminotransferase [Enzymatic activity/volume] in Serum or Plasma by With P-5'-PAspartate Aminotransferase Lab Routine Hyperlipidemia, unspecified hyperlipidemia type Expected: 08/03/2025 (Approximate), Expires: 08/13/2025[facility] Work Phone: Comment on above:Expected: 08/03/2025 (Approximate), Expires: 08/13/2025Start: 08-03-2025 End: 89-27-7849Dorpf 1996 panel - Serum or PlasmaLipid Panel Lab Routine Hyperlipidemia, unspecified hyperlipidemia type Expected: 08/03/2025 (Approx imate), Expires: 08/13/2025[facility] Work Phone: Comment on above:Expected: 08/03/2025 (Approximate), Expires: 08/13/2025Start: 07-14-2025 End: 34-20-7652xqtcrwhwyt89/14/2025 5:00 PM EDT Evaluation [facility] [address] [address] Kayode Francois, PT [address] [place], [place] [id number] [facility]: 06-23-2025 End: 03-98-0919Chuvulg encounter uhwfhtxya46/23/2025 11:00 AM EDT Office Visit [facility] [address] [place] [address] Jr. Bridgett Sinha, DO [address] [facility] [address] [place] [address] [facility]: 06-02-2025 End: [id number] Wrist - right WO contrastMR wrist right wo IV contrast Imaging Routine Chronic pain of right wrist Expected: 06/02/2025 (Approximate), Expires: 06/02/2026[facility] Work Phone: Comment on above:Expected: 06/02/2025 (Approximate), Expires: 06/02/2026Start: 06-02-2025 End: 87-49-3737Woibbfu encounter procedureNOOK Oslo OrthopaedicsComment on above:ArrivedStart: 03-88-4644Tvtdszwmp vaccinationInfluenza Vaccine (#1)[facility] HealthcareStart: 05-15-2025 End: 45-16-0164TWV AND NERVE CONDUCTION STUDYEMG AND NERVE CONDUCTION STUDY Neurology Routine Arm weakness Numbness Arm pain, right Ulnar neuropathy of right upper extremity Expected: 05/15/2025 (Approximate), Expires: 05/15/2026 [facility] Work Phone: Comment on above:Expected: 05/15/2025 (Approximate), Expires: 05/15/2026Start: 03-17-2025 End: 86-50-8095Waqciyx encounter vnobyvlah71/17/2025 2:40 PM EDT Office Visit [facility] [address] [facility] [address] [place] [address] Celso Garibay DO [address] [facility] [address], [address] [place] [address] [facility] HospitalStart: 94-73-4903Rrjdx BMI ScreeningAdult BMI ScreeningProCity Hospital SystemStart: 47-29-0266Lcydunnkp for malignant neoplasm of cervixBON SECOURS MEMORIAL [facility]ALTH SYSTEM MARIETTA [facility]IAL HOSPITALStart: 91-87-5174Iafex BMI Screening Adult BMI ScreeningProCity Hospital SystemStart: 76-60-7165Fqlnplv Screening Tobacco ScreeningUK Healthcare SystemStart: 01-15-2025 End: 86-39-4520Ffylkun encounter fbnegxmqh15/17/2025 4:00 PM EDT Office Visit [facility] [address] [place] [address] Stephanie Berger MD PhD [address] [facility] [address] [place] [address] [facility] Start: 11-26-2024 End: 00-85-6636Ctpdpnj encounter dhgibjowm63/26/2025 1:00 PM EST Office Visit [facility] [address] [place] [address] Raji Byrd PA [address] [facility] [address] [place] [address] Acute pain of right wrist (Primary Dx)[facility] Comment on above:Acute pain of right wrist (Primary Dx)Start: 08-19-2024 Screening for malignant neoplasm of cervixCincinnati Shriners HospitalStart: 07-80-4241RmaejgkrfGood Samaritan Hospitaltart: 23-32-4622Mwuduwta to cardiologistGood Samaritan Hospitaltart: 61-14-5611KmeyihbmjGood Samaritan Hospitaltart: 23-41-6704Dhzqhuie admissionGood Samaritan Hospitaltart: 08-15-2024 Screening for malignant neoplasm of breastMammogramPaulding County HospitalStart: 08-13-2024 End: 02-68-5651Pqtpwbz encounter ocibctztm63/13/2024 11:30 AM EST Office Visit [facility] [address] [facility] [address] [place] [address] Celso Garibay DO [address] [facility] [address] [place], [place] [address] [facility]: 28-00-5582VMU High Risk: (Elderly (60+) or Population) (1 - Risk 60-74 years 1-dose series)RSV High Risk: (Elderly (60+) or Population) (1 - Risk 60-74 years 1-dose series) [facility] HospitalStart: 53-42-8770XEAQE-19 Vaccine ( season)COVID-19 Vaccine ( season)[facility] Start: 03-47-9455Tuwweoxhd vaccinationInfluenza VaccineUK Healthcare System Start: 03-06-2024 End: 88-86-9892Hcdchxxyp to same day surgery rxhwln1803/06/2024 11:30 AM EDT - 03/06/2024 12:45 PM EDT Surgery [facility] [address] [place] [address] Danielle Magallon MD [address] [place] [address] ESOPHAGOGASTRODUODENOSCOPY DIAGNOSTIC [55726 (CPT )][facility]oscopyComment on above:ESOPHAGOGASTRODUODENOSCOPY DIAGNOSTIC [63199 (CPT )] Start: 03-06-2024 End: 89-72-1439Hncbkoavxurhihgdzxuxdslqwc transoral diagnostic ESOPHAGOGASTRODUODENOSCOPY DIAGNOSTIC ACUTE RECURRING PANCREATITIS, EPIGASTRIC PAIN 03/06/2024 11:30 AM EDTTOLEDO ENDOSCOPYStart: 03-06-2024 End: 31-62-6374Ktggwcpazqjtw flexible transoral ultrasound examENDOSCOPIC ULTRASOUND UPPER ACUTE RECURRING PANCREATITIS, EPIGASTRIC PAIN 03/06/2024 11:30 AM EDTTOLEDO ENDOSCOPYStart: 79-99-3141Lvqqznpfbd hospital visit by physician 03/06/2024 11:30 AM EDT Hospital Encounter [facility] [address] [place] [address] Danielle Magallon MD [address] [place] [address] [facility]oscopyStart: 45-57-6362Ebjezpinfa Screen Depression ScreenRAPPAHANNOCK GENERAL HOSPITALStart: 02-12-2024 End: 43-23-9858Azkqyfd aminotransferase [Enzymatic activity/volume] in Serum or Plasma by With P-5'-PAlanine Aminotransferase Lab Routine History of coronary artery bypass graft Ischemic cardiomyopathy Expected: 02/12/2024 (Approximate), Expires: 08/14/2024[facility] Work Phone: Comment on above:Expected: 02/12/2024 (Approximate), Expires: 08/14/2024Start: 02-12-2024 End: 56-45-4394Jeyqpmtgj aminotransferase [Enzymatic activity/volume] in Serum or Plasma by With P-5'-PAspartate Aminotransferase Lab Routine Atherosclerosis of coronary artery of [place] heart without angina pectoris, unspecified vessel or lesion type Ischemic cardiomyopathy Expected: 02/12/2024 (Approximate), Expires: 08/14/2024[facility] Work Phone: Comment on above:Expected: 02/12/2024 (Approximate), Expires: 08/14/2024Start: 02-12-2024 End: 75-39-9113Ilavx 1996 panel - Serum or PlasmaLipid Panel Lab Routine Atherosclerosis of coronary artery of [place] heart without angina pectoris, unspecified vessel or lesion type Expected: 02/12/2024 (Approximate), Expires: 08/14/2024[facility] Service Area Work Phone: Comment on above:Expected: 02/12/2024 (Approximate), Expires: 08/14/2024Start: 96-78-6573FHQ, Provider: Celso Garibay, Status: Julio, Time: 3:00 PMFUV, Provider: Celso Garibay, Status: Julio, Time: 3:00 PM-[facility] 250 DO Work Phone: Start: 56-56-6155Vrgkxbbgi for malignant neoplasm of breastBreast cancer screenCincinnati Shriners HospitalStart: 95-72-7547Hauupgbgb for malignant neoplasm of breastMammogramUnWilson HealthStart: 07-03-2023 End: 75-09-8715Tctryuz encounter veagekzlv33/03/2023 4:45 PM EDT Office Visit [facility] Part of [facility] [address] [facility] [address] [place] [address] Deuce Gaby Tello, DO [address] [facility] [place] [address] post-op BA 05/16[facility] Part [facility] HospitalComment on above:post-op BA 8/tart: 06-18-2023 End: 98-26-1422Xmzzwxcdeeml bx endometrium&/polypc w/wo d&cDILATATION AND CURETTAGE HYSTEROSCOPY Post-menopausal bleeding Inclusion cyst 06/18/2023 2:01 PM EDSelect Medical Specialty Hospital [facility]man, Inctart: 35-17-0983ENGCZ-19 Vaccine ()COVID-19 Vaccine ()[facility] SystemStart: 02-13-2023 End: 45-52-1032Myyuiqv encounter brudiimlc82/16/2023 Office Visit Obstetrics and Gynecology Gaby Phillips, DO [address] [place] [address] [facility] Part [facility] Livingtart: 51-54-0533JmbqmmwpkGood Samaritan Hospitaltart: 94-27-6517ZnqvucdtvOhiohealth Berger Hospital CenterStart: 11-01-2022 [facility] CenterStart: 09-09-2144Jqvzrxykq for malignant neoplasm of cervixPap smearPremier Health HealthStart: 76-42-4498DBP, Provider: Celso Garibay, Status: Pen, Time: 3:00 PMFUV, Provider: Celso Garibay, Status: Pen, Time: 3:00 PM-[facility] 250 DO Work Phone: Start: 76-52-7537Yeryk panelLipidsPremier Health HealthStart: 40-68-1988GBDXA-19 Vaccine (4 - Pfizer series)COVID-19 Vaccine (4 - Pfizer series)SADI RODRIGUEZ [place]: 73-55-8714Eefbfuhwh vaccinationFlu vaccine (#1)[facility]: 65-50-7926Iykcgpnntgnb Vaccine: Pediatrics (0 to 5 Years) and At-Risk Patients (6 to 64 Years) (2 - PCV)Pneumococcal Vaccine: Pediatrics (0 to 5 Years) and At-Risk Patients (6 to 64 Years) (2 - PCV) [facility]: 49-41-8202Oylppvtmafkz Vaccine: Pediatrics (0 to 5 Years) and At-Risk Patients (6 to 64 Years) (2 of 2 - PCV) Pneumococcal Vaccine: Pediatrics (0 to 5 Years) and At-Risk Patients (6 to 64 Years) (2 of 2 - PCV)[facility]: 25-60-3093Stqefz cancer screenBreast cancer screenLake County Memorial Hospital - [facility]: 77-65-2135Uqunb cancer screen colonoscopyColon cancer screen colonoscopyHendrum, [place] Start: 29-99-8317Ygeyvhap Vaccine (1 of 2)Shingles Vaccine (1 of 2)[facility] Start: 38-12-3900XOU Vaccines (1 of 1 - Standard series)MMR Vaccines (1 of 1 - Standard series)[facility]: 22-95-7123Rvzyywcep for malignant neoplasm of colonOhioHealth Dublin Methodist Hospital: 33-40-4999Pknkydng screenDiabetes screenOhioHealth Dublin Methodist Hospital: 48-08-4913EJpL/Tdap/Td Vaccines (1 - Tdap)DTaP/Tdap/Td Vaccines (1 - Tdap)[facility]: 15-49-5919Swniedmb cancer screenCervical cancer screenLake County [facility]: 1985 Screening for malignant neoplasm of cervixPaulding County Hospital Start: 28-08-5552KQsB,Tdap and Td Vaccines (1 - Tdap)DTaP,Tdap and Td Vaccines (1 - Tdap)[facility] SystemStart: 22-43-0106PRnM/Tdap/Td vaccine (1 - Tdap)DTaP/Tdap/Td vaccine (1 - Tdap)[facility]: 82-74-6972Siyja BMI Follow Up PlanAdult BMI Follow Up PlanNovant Health Presbyterian Medical Centertart: 1982 Diabetes mellitus screeningDiabetes ScreeningPaulding County Hospital Start: 25-91-3395Hfgmxsddt C screeningHolzer Medical Center – Jacksonart: 82-02-3152CAS screenHIV [facility]: 05-00-8345AEA screeningHIV [facility] Start: 14-30-7060Xjnekaodga ScreenDepression [facility]: 1976 Depression ScreeningDepression ScreeningNovant Health Presbyterian Medical Centertart: 1975 DTaP/Tdap/Td vaccine (1 - Tdap)DTaP/Tdap/Td vaccine (1 - Tdap)[facility]: 89-24-5085Wrfkh panelLipidsBON [facility]: 1974 Lipid screenLipid screenLake County Memorial Hospital [facility]: 03-41-7524Rhvsbwoui B vaccine (1 of 3 - 3-dose series)Hepatitis B vaccine (1 of 3 - 3-dose series)BON [facility]: 61-01-2001Koytcmuum B Vaccines (1 of 3 - 3-dose series) Hepatitis B Vaccines (1 of 3 - 3-dose series)[facility] Start: 83-10-4923Lfahfjqoy C screenHepatitis C [facility]: 93-46-0896OMG screeningHIV ScreeningPaulding County HospitalStart: 11-01-6222Vuhbx panelLipid PanelPaulding County HospitalStart: 71-73-5251Bxwbrueyv for malignant neoplasm of colonPaulding County HospitalStart: 49-25-8181Ykhrcg Adult PhysicalYearly Adult PhysicalUnWilson HealthActin smooth muscle IgG Ab [Units/volume] in Serum [facility] HospitalAlpha 1 antitrypsin [Mass/volume] in Serum or PlasmaMartins Ferry HospitalAlpha 1 antitrypsin phenotyping [Identifier] in Serum or Plasma by ImmunofixationMartins Ferry HospitalCeruloplasmin [Mass/volume] in Serum or PlasmaMartins Ferry Hospital End: 02-55-4867Ezzcrxidanijz procedure, preparation of smear, genital sourcePAP SMEAR Lab Routine Well female exam with routine gynecological exam 1 Occurrences starting 08/19/2019 until 08/19/2019[facility] on above:1 Occurrences starting 08/19/2019 until 08/19/2019 End: 15-63-6313Dagxzhagglfuu procedure, preparation of smear, genital sourcePAP SMEAR Lab Routine Women's annual routine gynecological examination 1 Occurrences starting 02/07/2022 until 02/07/2022[facility] Work Phone: comment on above:1 Occurrences starting 02/07/2022 until 02/07/2022Glucose measurement estimated from glycated hemoglobinSouthwest General Health Center A virus Ab [Presence] in Serum by Immunoassay [facility] HospitalHemills-peninsula medical center B core antibody measurementMartins Ferry HospitalHemills-peninsula medical center B virus surface Ab [Presence] in SerumMartins Ferry HospitalHemills-peninsula medical center B virus surface Ag [Presence] in Serum or Plasma by ImmunoassaySouthwest General Health Center C virus IgG Ab [Presence] in Serum or Plasma by ImmunoassayMartins Ferry Hospital Homogenous nuclear Ab pattern [Titer] in [facility] IgG [Mass/volume] in Serum or PlasmaMartins Ferry Hospital End: 91-66-1550HSZGTYAT PACU OXYGEN THERAPY PROTOCOLInitiate PACU Oxygen Therapy Protocol Respiratory Care Routine Continuous until discontinued starting 06/18/2023 [facility] on above:Continuous until discontinued starting 06/18/2023Lipoprotein a [Moles/volume] in Serum or PlasmaMartins Ferry HospitalMitochondria M2 IgG Ab [Units/volume] in [facility] HospitalNuclear Ab [Titer] in [facility] Children[facility] HospitalOxygen therapy [Minimum Data Set]Initiate Oxygen Therapy Protocol Respiratory Care Routine As Needed until discontinued starting 06/18/2023 [facility] on above:As Needed until discontinued starting 06/18/2023Oxygen therapy [Minimum Data Set]Initiate Oxygen Therapy Protocol Respiratory Care Routine As Needed until discontinued starting 06/18/2023 [facility] on above:As Needed until discontinued starting 06/18/2023atient EducationHemorrhoids (DC)[facility] Work Phone: End: 85-13-1143Pwncvhcjp, urine POCTPregnancy, urine POCT Point of Care Testing Routine One Time for 1 Occurrences starting 06/18/2023 until 06/18/2023ON [facility] on above:One Time for 1 Occurrences starting 06/18/2023 until 06/18/2023Surgical PathologySurgical Pathology Lab Routine Post-menopausal bleeding Inclusion cyst Release Upon Ordering for 1 Occurrences starting 06/18/2023ON [facility] on above:Release Upon Ordering for 1 Occurrences starting 06/18/2023[facility] Immunizations Immunization DateImmunizationNotesCare QebzoazdCmkasezl71-18-1124hlvlctaom virus vaccine, unspecified formulationMalilli RINALDI Work Phone: NOHannibal Regional HospitalCbpmfhpdrb73-37-2799ribdhsbat, unspecified formulationJELIZBETH MARTINO [facility]09-05-2023influenza virus vaccine, unspecified formulationStephanie Berger MD PhD Work Phone: [facility] Medical CenterDcdjzi48-47-4632kguoldlpl, injectable, quadrivalent, preservative Estevan Gordilloestefani Work Phone: [phone]-AkpqrCannon Falls Hospital [facility] 250 DO Work Phone: [phone] vaccine recombinantAshley Clements Hoy Work Phone: [phone]-QhensNorth Valley Health CenterBioVidria 250 DO Work Phone: [phone]-BpkIJugm COVID-19 Vacc 30 MCG/0.3ML Intramuscular SuspensionDouglas Elias Hoy Work Phone: [phone]-EyljiCannon Falls Hospital and Clinic 250 DO Work Phone: [phone] virus vaccine, unspecified formulationugcholo M Hoy Work Phone: [phone]-AvzblCannon Falls Hospital and [facility] 250 DO Work Phone: [phone], injectable, Madin [place] Canine Kidney, preservative free, quadrivalentDouglas M Hoy Work Phone: [phone]-KbxjtCannon Falls Hospital and [facility] 250 DO Work Phone: [phone]-KwmVXaji COVID-19 Vacc 30 MCG/0.3ML Intramuscular SuspensionDouglas M Hoy Work Phone: [phone]-SudcyCannon Falls Hospital and [facility] 250 DO Work Phone: [phone]-RfjZLwlk COVID-19 Vacc 30 MCG/0.3ML Intramuscular SuspensionDouglas M Hoy Work Phone: [facility] CenterEcmygk62-02-6418pxmxrxzrt, injectable, quadrivalent, preservative freeDouglas M Hoy Work Phone: [phone]-TcijqCannon Falls Hospital and [facility] 250 DO Work Phone: [phone], injectable, quadrivalent, preservative freeDouglas M Hoy Work Phone: [phone]-VkrmxCannon Falls Hospital and Clinic 250 DO Work Phone: [phone], injectable, Madin Renetta Canine Kidney, preservative free, quadrivalentDouglas M Hoy Work Phone: [phone]-DsdbfCannon Falls Hospital and [facility] 250 DO Work Phone: [phone] polysaccharide vaccine, 23 valentDouglas M Hoy Work Phone: [phone]-QjvxmCannon Falls Hospital and [facility] 250 DO Work Phone: [phone], seasonal, injectable, preservative freeDouglas M Hoy Work Phone: [phone]-BbwnxCannon Falls Hospital and Clinic 250 DO Work Phone: [phone], seasonal, injectableDouglas M Hoy Work Phone: [phone]-RecnuCannon Falls Hospital [facility] 250 DO Work Phone: [phone] bygazzben-L5H4-87, preservative-free, injectableDodonn Grigsby Work Phone: [phone]-KvygnCannon Falls Hospital and [facility] 250 DO Work Phone: Payers DatePayer CategoryPayerPolicy [id number] Cross Blue ShieldBCBS [id number] [facility]ston [facility] CareTGH [place] [id number]10.281879.46328-03-1646Xyodhzk83-07-3461 UnknownBCBS HIGHMARK BCBS [place] LOC[place] xxxxxxxxxxxxxxx 2019-Present [address] [place] [address]fjyxvlxuckuyyet [id number].3.648[id number] 2.16.840.1.249976.3.57[id number] 2.16.840.1.169644.3.579.2.[id number] 2.16.840.1.148063.3.579.2.75491-82-5423Kxvcwyt8807047 2.16.840.1.273132.3.579.2.85002-13-2982Hiuuxdb4182780 2.16840.1.568958.3.579.2.45747-96-9686Vcziciw87753960 2.16840.1.133973.3.57[id number] 2.840.1.015334.3.579.2.79100-42-6511Uktmnip52034264 2.16840.1.691560.3.579.2.444323-33-5772Jyevxev01836357 2.840.1.877640.3.579.2.302205-02-0243Seixdgz05633300 2.840.1.764608.3.579.2.736730-52-9681Tphmpqo07059403 2.16840.1.751604.3.579.2.693135-17-1730Ygaxhgp65563072 2.16840.1.057218.3.579.2.899877-04-9957Kmfiygs47891019 2.16840.1.249833.3.579.2.660239-43-8574Lgqpkbe28340194 2.16840.1.578265.3.579.2.711341-90-8949Swfvimc820694926 2.16840.1.303046.3.579.2.747932-79-4631Qcywlue188956354 2.0.1.835615.3.579.2.404589-49-2972Hhbjhfi320604600 2.840.1.325034.3.579.2.968713-61-0376Vvsruju214437052 2.0.1.284820.3.579.2.825665-97-9952Jfgjjhn48425121 2.0.1.364764.3.579.2.403608-06-8390Fuouxsj06659046 2..1.238393.3.579.2.381985-24-8053Oblfnbu83450491 2.0.1.680683.3.579.2.203950-16-8238Ojpelrs00943999 2.0.1.281493.3.579.2.355417-38-2450Yabqjgr68064517 2.0.1.053677.3.579.2.878743-92-8279Mvfpiml97342399 2..1.647465.3.579.2.369231-41-2451Lssomti8191450 2..1.255630.3.579.2.775161-51-7206Nzgchul4008218 2..1.711486.3.579.2.206901-28-9907Nwrbhfe47926615 2..1.724729.3.579.2.24858-63-2917Wrbsmav45863364 2.0.1.177845.3.579.2.50852-07-2295RzkctybETO66841516185147-56-7119Vqerbbj LPK098W30905Iwdnuue55396966 2.0.1.605427.3.579.2.531 Social History DateTypeDetailFacilityStart: 08-19-2019 End: 99-16-1487Dvjqidj smoking status NHISNever smokerHendrum, [place]Start: 08-19-2019 End: 90-58-0936Erfprxu intakeEx-drinker (finding)[place], [place]Start: 13-65-7443Gxk Assigned At BirthNot on fileProtestant Hospitalart: 06-18-2023 End: 98-66-6645Bv alcohol useNo alcohol useCity Emergency Hospital Instinctiv 250 DO Work Phone: Start: 08-19-2019 End: 27-02-7591Lrxmyoe use and exposureSmokeless tobacco non-userCincinnati Shriners Hospital Work Phone: start: 06-18-2023 End: 99-31-2345Pjg Assigned At [facility] CenterFemaleExec[facility] start: 57-40-8930Ucu Assigned At [facility] HospitalPatient Health Questionnaire 9 item (PHQ-9) total score [Reported]0[facility] HOSPITALStart: 08-14-2023 End: 18-93-6642Rjsjdzr intakeLifetime non-drinker (finding)[facility] Work Phone: Start: 08-04-2023 End: 54-71-7225Mworbxgf to SARS-CoV-2 (event)Not surePaulding County HospitalStart: 42-52-2332ZlwHoeakp (finding)[facility] Start: 01-17-2024 End: 03-55-9602Chfhmlcra beverage intakeCurrent non-drinker of alcohol (finding) [employer] SystemStart: 32-10-4052Cdhbmg identityIdentifies as female gender (finding)[facility] HealthcareNEGATED: Highlighted rowDenies Caffeine useDenies Caffeine use-[facility] 250 DO Work Phone: Medical Equipment Procedure CodeEquipment CodeEquipment Original TextEquipment IdentifierDates Cystoscopy, with ureteral calculus manipulation and stent placementSTENT BARD MULTI 6FR 22-32CMFDAStart: 31-56-9725Frhbsfzelj, with ureteral calculus manipulation and stent placementSTENT BARD MULTI 6FR 22-32CMFDAStart: 04-24-2018 Cystoscopy, with ureteral calculus manipulation and stent placementSTENT BARD MULTI 6FR 22-32CMFDAStart: 43-76-3542Sfogasrtkq, with ureteral calculus manipulation and stent placementSTENT BARD MULTI 6FR 22-32CMFDAStart: 04-24-2018 Tissue Alloderm Nonmesh 2x4cm - Sna - [id number]: 41-13-1713Gwwo Iol Ultrasert 17.0d - [id number] - [id number]_iapZmpex: 78-26-1078Ptcgd Implant Propel Mini - Sna - [id number]: 53-20-1349Cwgfz Implant Propel - Sna - [id number]: 98-47-2881Mncdpdren [id number]_egv Start: 11-05-2018 Goals DatePatient GoalDesired Activity/State Functional Status HlvdFfgfeitqubQbagrbNcnplfot23-01-1199Itebbihsal StatusN/AExec[facility] of St. [facility] Hospital07-11-2024Functional StatusN/AExec[facility]09-02-2022Functional StatusN/A [facility] Clinical Notes 06-02-2022 to 06-23-2025 Note Date & JpxwSvgnCjlcagqp89-34-8734 History of Present illness Narrative* Jr. Bridgett [...] for requiring urgent evaluation. documented in this encounterLakeland Regional HospitalRiogcasqad16-59-9513 History of Present illness Narrative* Bridgett Sinha, DO - 06/02/2025 10:15 AM EDT Images [...] IV contrast MRI RT wrist w/o at [facility]. Orbits if needed. Please contact [...] for requiring urgent evaluation. documented in this encounterLakeland Regional HospitalVaszibaiif37-87-1230 History of Present illness Narrative* Rae Louie MD - 05/27/2025 3:15 PM EDT [facility] Patient: Jose Alberto Saleem [address], [address] , Sex: 1965, Male [place], [place] [address] Height: 160 cm Ref Phys: Byrd fax [...] N N 0 N N Left [place] I Ulnar C8-T1 0 0 0 0 [...] Doub=doublet; Fasc=fasciculation; FFE=full for effort; Fib=fibrillation; Myokym=myokymia; Boron=myotonic potential; N,0=normal; NR=no response; Polyph=polyphasia; Pos=positive [sharp] [...] or mononeuritis multiplex. Rae Louie M.D. Diplomate, [place] Board of Psychiatry and Neurology (neurology, epilepsy, sleep medicine) Diplomate, [place] Board of Clinical Neurophysiology Diplomate, [place] Board of Preventive Medicine (clinical informatics) . documented in this encounterLakeland Regional HospitalFgukhpmlbz51-96-7264 NoteCalled patient today to let her know [...] dosage depending on her snack, verifies understanding. [facility]08-15-2025 History of Present illness Narrative* GENTRY [...] her hand tightly in a fist. 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 She has had prior carpal [...] Scheduling Instructions: Schedule with Dr. Louie ( [facility] resource).- EMG RT UE; PLEASE CALL [...] requiring urgent evaluation. Visit was preformed using [employer]-captain airline pilot speech recognition. documented in this encounterLakeland Regional HospitalUrzbxxpcxo10-23-4545 NoteCalled patient to follow up with the [...] LATIA Rivera in the clinic and Dr. Watson.[facility]08-08-2025 Note Attestation signed by Chauncey Kimble MD at 05/08/2025 4:15 PM I personally saw the patient with the resident/fellow on the same day of service. I discussed the findings and therapeutic plan with the resident/fellow and with the patient. I agree with the documentation. [facility] Gastroenterology Follow-Up Patient Visit CHIEF [...] B12/Folate/Iron studies: Lab Results Component Value Date IHBVIJCG78 1,862 (H) 02/27/2024 FOLATE 39.0 02/27/2024 IRON [...] TSH 2.02 02/27/2024 Pancreatiti (more content not included)...[facility] 01-09-2025 Note Attestation signed by Chauncey Kimble MD at 01/10/2025 8:31 AM I personally saw the patient with the resident/fellow on the same day of service. I discussed the findings and therapeutic plan with the resident/fellow and with the patient. I agree with the documentation. [facility] Gastroenterology New Patient Visit - History & Physical CHIEF COMPLAINT Chief Complaint Patient presents with Follow-up MRI follow up and seen at [facility] and in hospital for 1 day. Will [...] on for which she was admitted at [facility] and was management symptomatically. Patient reported [...] Plavix, baby aspirin, amlodipine, and a PRN Interlachen for pain. Of note, she has a [...] which were ordered at the outside facility ([facility]) and remain pending. A HIDA scan may also be pursued for further evaluation. She reports extreme fatigue post-hospitalization, interfering with her work and daily function. She prefers to avoid surgical intervention unless necessary and is open to advanced enteroscopy (e.g., device-assisted ERCP) at tertiary centers ([facility] or [facility]) as a less invasive alternative to laparoscopic-assisted ERCP. Plan includes requesting complete LFTs and pancreatic (more content not included)... [facility]03-14-2025 Note Attestation signed by Chauncey Kimble MD at 12/12/2024 3:31 PM I personally saw the patient with the resident/fellow on the same day of service. I discussed the findings and therapeutic plan with the resident/fellow and with the patient. I agree with the documentation. [facility] Gastroenterology New Patient Visit - [...] on for which she was admitted at [facility] and was management symptomatically. Patient reported [...] healthy appearing mucosa. This was traversed. The kitus-ed-zgntstx limb was characterized by healthy appearing mucosa. [...] Angina pectoris Atherosclerosis of coronary artery of stony river heart without angina pectoris Cellulitis of right [...] Mother Katharyn Hyperlipidemia Father Munoz Hyperlipidemia Brother [place] Heart attack Brother Ray SOCIAL HISTORY: Social History Tobacco Use Smoking status: Never Smokeless tobacco: Never Vaping Use Vaping status: Never Used Substance Use Topics Alcohol use: Never Drug use: Never ALLERGIES: Baclofen; Latex, natural rubber; Penicillins; Sulfa (sulfonamide antibiotics); Rosuvastatin; Sulfamethoxazole-trimethoprim; Fenofibrate; Fenofibrate micronized; Fluvastatin; Levofloxacin; Phenazopyridine; Simvastatin; Trimethoprim; and Tobramycin Current Med (more content not included)...[facility] 11-26-2024 History of Present illness Narrative* [...] AND FELT A POP 10/08/24- WENT TO [facility]; SENT TO [facility] XRAYS XRAY RT WRIST TODAY EPIC 11/26/24 XRAY [facility] RT FOREARM 10/11/24 SPLINT DOING [...] xray 10/11/24 (R) Forearm: no acute fracture [facility] Results - Imaging: - X-ray [...] for requiring urgent evaluation. documented in this encounterLakeland Regional [id number] History of Present illness Narrative* Celso Garibay, - 09/05/2024 9:20 AM EST Subjective Jose Alberto Saleem is a 59 y.o. female Chief Complaint Follow-up 59-year-old female returns following acute coronary syndrome, with subsequent two-vessel intervention of the vein graft to the diagonal branch with long 3.5 x 38 mm Ray stent and stony river distal circumflex for in-stent restenosis with 3 x 18 mm Charlo stent. LV function is preserved. WHEELER-LAD remains patent, st[place] river right coronary vein graft right coronary is chronically occluded (known from the past) and collateralized via left coronary system, and vein graft to the OM 2 is also occluded chronically however stony river circumflex is intact. Patient is otherwise stable [...] Atherosclerosis of coronary artery bypass graft of stony river heart without angina pectoris 2. S/P PTCA [...] exam, discussion and plan. documented in this [facility] Work Phone: 1(392) 865-111112-06-2024 Instructions* Patient Instructions* Jasmyne Salinas LPN - [...] through Care Everywhere. * Heart Healthy Diet (Greek) documented in this [facility] Work Phone: 1(658) 172-619911-19-2024 Evaluation note* Diagnosis Onset Date Resolution Status Admit Date Atypical chest pain acuteNovember 2023 11:18pm [facility] Work Phone: 1(547) 685-284911-13-2024 History of Present illness Narrative* Celso Garibay, - 08/13/2024 11:30 AM EST Subjective Jose Alberto Saleem is a 59 y.o. female Chief Complaint Annual Exam 59-year-old female returns for annual visit, she just got back from [facility] from vacation last evening and [...] Assessment/Plan 1. Atherosclerosis of coronary artery of stony river heart without angina pectoris, unspecified vessel or lesion type Follow Up In Cardiology 2. History of coronary artery bypass graft Follow Up In Cardiology 3. Essential hypertension, benign 4. Hyperlipidemia, unspecified hyperlipidemia type 5. Acute pancreatitis, unspecified complication status, unspecified pancreatitis type ([facility]) Scribe Attestation By signing my name below, [...] exam, discussion and plan. documented in [facility]Paul[facility] Work Phone: 1(597) 924-966911-13-2024 Instructions* Patient Instructions* Bettie Ugalde LPN - [...] Provided instructions on exercise. documented in this [facility]Paulding [facility] Work Phone: 1(855) 746-437311-05-2024 Hospital Discharge instructions Patient Education 08/05/2024 12:20:10 Kidney Stones, Cavt-wo-Dvtw Kidney Stones Kidney stones are rock-like masses [...] Follow these instructions at home: Medicines Take ijjg-auf-xpceqtm and prescription medicines only as told by [...] Kidney Foundation (NKF): kidney.org Urology Care Foundation (F): urologyhealth.org Contact a doctor if: You have [...] provider. Document Revised: 05/11/2023 Document Reviewed: 05/11/2023 [employer] Patient Education 2023 BrightRoll. Follow Up Care 06/06/2024 11:10:21 With:SALENA REDDY, JENNIFER López, TRUDYL Address: When:1 year [facility] 11-05-2024 NotePatient Education Urology Kidney Stones [...] these instructions at home: Medicines ??? Take dvev-lwb-xvvivle and prescription medicines only as told by [...] provider. Document Revised: 05/11/2023 Document Reviewed: 05/11/2023 [employer] Patient Education ? 2023 BrightRoll.[facility] 04-10-2024 Hospital Discharge instructions Patient Education 04/10/2024 16:08:23 Kidney Stones, Wkte-lu-Sbif Kidney Stones Kidney stones are rock-like masses [...] Follow these instructions at home: Medicines Take ftpt-zys-jicnjgp and prescription medicines only as told by [...] provider. Document Revised: 05/22/2022 Document Reviewed: 05/22/2022 [employer] Patient Education 2022 BrightRoll. Follow Up Care 03/10/2024 08:31:33 With:JENNIFER MARTINO PA-C, URL Address: [address] [place] [address] When:3 months [facility] 05-31-2024 Instructions* Pre-Procedure Instructions - Aracely Boyd RN - 02/29/2024 10:00 AM EDT Your surgery/procedure is scheduled at [facility] on 03/06/2024 at 1130 Arrival Time 0930 [facility] Address: [address] [place] [address]. [place] [address] Park in [address] Parking lot located on [facility]. Report to the Entrance B. Check in at the information desk the surgery. The waiting room located on the second floor. If you have any questions prior to surgery, please call Pre-Admission Clinic at [phone] between 7:30 am and 4:30 pm Sunday through Sunday. If you have questions the morning of surgery, please call the Pre-op Department at [phone]. Notify your SURGEON if you develop any [...] would like to schedule therapy at a [facility] facility, please call [phone] ([phone]). Do not use lotions, creams, powders, perfume, [...] RIGHTS AND RESPONSIBILITIES As a patient at [facility], you have the right to: Receive medical care and be informed of who is taking care of you Be treated with dignity and respect Have a family member/bottling equipment sales representative of choice and your physician notified of your admission Receive information and actively participate in decisions about your care and treatment Refuse care, treatment and services Decide who may provide your support and speak for you Access faith and spiritual services Participate in ethical issues [...] of hospital charges and payment methods Patient/patient bottling equipment sales representative responsibilities are to: Provide information [...] RIGHTS AND RESPONSIBILITIES As a patient at [facility], you have the right to: Receive medical care and be informed of who is taking care of you Be treated with dignity and respect Have a family member/bottling equipment sales representative of choice and your physician notified of your admission Receive information and actively participate in decisions about your care and treatment Refuse care, treatment and services Decide who may provide your support and speak for you Access faith and spiritual services Participate in ethical issues [...] of hospital charges and payment methods Patient/patient bottling equipment sales representative responsibilities are to: Provide information [...] Control department if you have any questions. [facility]05-31-2024 Miscellaneous Notes* Pre-Procedure Instructions - Aracely Boyd RN - 02/29/2024 10:00 AM EDT Your surgery/procedure is scheduled at [facility] on 03/06/2024 at 1130 Arrival Time 0930 [facility] Address: [address] [place] [address]. [place] [address] Park in [address]1 Parking lot located on [facility]. Report to the Entrance B. Check in at the information desk the surgery. The waiting room located on the second floor. If you have any questions prior to surgery, please call Pre-Admission Clinic at [phone] between 7:30 am and 4:30 pm Sunday through Sunday. If you have questions the morning of surgery, please call the Pre-op Department at [phone]. Notify your SURGEON if you develop any [...] would like to schedule therapy at a [facility] facility, please call [phone] ([phone]). Do not use lotions, creams, powders, perfume, [...] RIGHTS AND RESPONSIBILITIES As a patient at [facility], you have the right to: Receive medical care and be informed of who is taking care of you Be treated with dignity and respect Have a family member/bottling equipment sales representative of choice and your physician notified of your admission Receive information and actively participate in decisions about your care and treatment Refuse care, treatment and services Decide who may provide your support and speak for you Access faith and spiritual services Participate in ethical issues [...] of hospital charges and payment methods Patient/patient bottling equipment sales representative responsibilities are to: Provide information [...] RIGHTS AND RESPONSIBILITIES As a patient at [facility], you have the right to: Receive medical care and be informed of who is taking care of you Be treated with dignity and respect Have a family member/bottling equipment sales representative of choice and your physician notified of your admission Receive information and actively participate in decisions about your care and treatment Refuse care, treatment and services Decide who may provide your support and speak for you Access faith and spiritual services Participate in ethical issues [...] of hospital charges and payment methods Patient/patient bottling equipment sales representative responsibilities are to: Provide information [...] in this encounterSuburban Community Hospital & Brentwood HospitalNovaSparks [facility] [id number] History of Present illness Narrative* Stephanie Berger MD PhD - 01/17/2024 4:[address] [facility] [address] [facility] [address] SUBJECTIVE: Patient ID (1965): Jose Alberto Saleem [...] Hypertension Kidney stone Kidney stones Myocardial infarction ([facility]) 2013 5 stents Visual impairment Past Surgical History: Procedure Laterality Date APPENDECTOMY BIOPSY SALIVARY GLAND FS N/A 09/06/2017 Performed by Stephanie Berger MD at [facility] CARPAL TUNNEL RELEASE right CHOLECYSTECTOMY CORONARY ARTERY BYPASS GRAFT x4 ENDOSCOPIC FUNCTIONAL SINUS SURGERY Bilateral 01/03/2018 Performed by Stephanie Berger MD at [facility] ENDOSCOPIC SURGERY SINUS Bilateral 01/03/2018 Performed by Stephanie Berger MD at [facility] EXCISION MASS UPPER EXTREMITY Right 11/19/2019 Performed by Stephanie Morse DO at [facility] HERNIA REPAIR LAPAROSCOPIC GASTRIC BYPASS LITHOTRIPSY OVARIAN CYST REMOVAL PHACO KELMAN I IMPLANT INTRAOCULAR LENS Left 11/14/2018 Performed by Nisha Stoll MD at [facility] PHACO KELMAN I IMPLANT INTRAOCULAR LENS Right 11/05/2018 Performed by Nisha Stoll MD at [facility] RELEASE CARPAL TUNNEL Right 01/11/2022 Performed by Stephanie Morse DO at [facility] RELEASE CARPAL TUNNEL [place] CPT 15422 Left 07/19/2022 Performed by Stephanie Morse DO at [facility] RESECTION SUBMUCOSAL Bilateral 09/06/2017 Performed by Stephanie Berger MD at [facility] SEPTOPLASTY SEPTOPLASTY N/A 09/06/2017 Performed by Stephanie Berger MD at [facility] STENT INSERTION LACRIMAL DUCT EYE Right 09/06/2017 Performed by Stephanie Berger MD at [facility] URETERAL STENT PLACEMENT Family History Problem Relation [...] tablets (6.25 mg total) by mouth daily. soqefedl-nlfq-UH-calcium &mins (THERAGRAN-M) 9 mg iron-400 mcg tablet [...] day. (Patient not taking:Reported on 01/17/2024) sod gpquj-suabcv-vkugye bottle (NEILMED SINUS RINSE COMPLETE) packet with [...] this chart were generated using voice recognition Fision dictation software. Although every effort was made to ensure the accuracy of this automated inspector printed circuit boards, some errors in inspector printed circuit boards may have occurred. documented in this encounterSuburban Community Hospital & Brentwood HospitalNovaSparks [facility] [id number] History of Present illness Narrative* Celso Garibay, [...] Assessment/Plan 1. Atherosclerosis of coronary artery of stony river heart without angina pectoris, unspecified vessel or lesion type 2. History of coronary artery bypass graft 3. Ischemic cardiomyopathy 4. Essential hypertension, benign documented in this encounterPaulding County Hospital Work Phone: 1(709) 216-359611-14-2023 Instructions* Patient Instructions* Ej Braswell MA - [...] time of your visit. documented in this encounterPaulding County Hospital Work Phone: 1(907) 344-419909-18-2023 Hospital Discharge instructions* Discharge Instructions* Lissa Ocasio [...] call if excessive. Call the office at [phone] ([place]) [phone] ([place]) for an appointment in 2 weeks. documented in this [facility] History of Present illness Narrative* [...] pre-opvisit with Dr. Tripathi. documented in this encounterRAPPAHANNOCK [facility]02-20-2023 Evaluation note* Encounter Date Diagnosis Assessment Notes Treatment Notes Treatment Clinical Notes Nov, Elevated liver function tests (I CD-10 - R94.5) [employer] Other 02-02-2023 [facility] noteMart[facility]01-24-2023 Evaluation note* Encounter Date Diagnosis Assessment Notes Treatment Notes Treatment Clinical Notes Oct, Abdominal pain (ICD-10 - R10.9) Oct,ommon bile duct dilatation (ICD-10 - K83.8) Oct,Elevated liver enzymes (ICD-10 - R74.8) Oct,onstipation (ICD-10 - K59.00)Colonoscopy Start Miralax daily after colonoscopy. Titration dosing discussed with patient. Oct,olon cancer screening (ICD-10 - Z12.11) [employer] Other 01-04-2023 NotePROGRESS NOTE NOTE DATE: 10/04/2022 CHIEF COMPLAINT: Abdominal pain. HISTORY OF PRESENT ILLNESS: The patient is a 57-year-old female with a history of dyslipidemia and gastric bypass surgery, who has been having increasing abdominal pain and flank pain. She was seen yesterday at the [facility] for epigastric and upper abdominal [...] DVT Prophylaxis: Lovenox. DISPOSITION: Home when medically stable.[facility]09-02-2022 Hospital Discharge instructions Patient Education 06/02/2022 08:51:52 Kidney Stones, Ssiy-gb-Vjyo Kidney Stones Kidney stones are rock-like masses [...] Follow these instructions at home: Medicines Take nzrd-cou-eftrkas and prescription medicines only as told by [...] 03/05/2009 Document Revised: 02/03/2020 Document Reviewed: 02/03/2020 [employer] Patient Education 2020 BrightRoll. Follow Up Care 05/27/2021 09:10:08 With:LORENA STRAUSS, Santiago Guzman, URL Address: [address] [place] [address]- When: Unknown [facility] evaluation + Plan note Future Appointments Appointment Date:06/01/2023 08:00:00 AM Scheduled Provider:Santiago CARRILLO MD Location:[facility] Appointment Type:URO Office Visit [facility] evaluation + Plan note Future Appointments Appointment Date:04/10/2024 03:00:00 PM Scheduled Provider:JENNIFER MARTINO PA-C Location:[facility] Appointment Type:URO Office Visit [facility] evaluation + Plan note Future Scheduled Tests Radiology* XR Abdomen 1 View 08/05/25 [facility] evaluation note* Diagnosis Women's annual routine gynecological examination documented in this encounter [facility] Work Phone: evaluation noteNo assessment information [facility] Work Phone: Evaluation noteNo InformationNoresearch medical center-[facility] [employer] Other Evaluation note* Diagnosis Post-menopausal bleeding Postmenopausal bleeding Inclusion cyst Sebaceous cyst documented in this encounter [facility] HEALTHEvaluation note* Diagnosis Atherosclerosis of coronary artery of stony river heart without angina pectoris, unspecified vessel or lesion type 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 Ischemic cardiomyopathy Other specified forms of chronic ischemic heart disease Essential hypertension, benign documented in this encounter [facility] Work Phone: Evaluation note* Diagnosis Atherosclerosis of coronary artery of stony river heart without angina pectoris, unspecified vessel or lesion type 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 Essential hypertension, benign Hyperlipidemia, unspecified hyperlipidemia type Acute pancreatitis, unspecified complication status, unspecified pancreatitis type ([facility]) documented in this encounter [facility] Work Phone: Evaluation note* Diagnosis Atherosclerosis of coronary artery bypass graft of stony river heart without angina pectoris S/P PTCA (percutaneous transluminal coronary angioplasty) Postsurgical percutaneous transluminal coronary angioplasty status 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 Ischemic cardiomyopathy Other specified forms of chronic ischemic heart disease Essential hypertension Unspecified essential hypertension Mixed hyperlipidemia BMI 30.0-30.9,adult Statin intolerance documented in this encounter [facility] Work Phone: Evaluation note* Diagnosis Dry [...] of wrist, right documented in this encounter [facility] HealthcareEvaluation note* Diagnosis Right wrist [...] [facility] November 01, 2022 12:40pmNote Date/TimeFebruary 2022 12:40pm[place] [address] Gastroenterology H&P Signed Patient: Jose Alberto Saleem MR#: [id number] : 1965 Acct:[id number] Age/Sex: 57 / F Adm Date: 3 Loc: Room: Type: [facility] Attending Dr: Evert Bruno MD Copies [...] signed by Evert Bruno MD> 11/01/22 1240 [facility] Work Phone: History and physical note Author Evert Bruno [facility] November 02, 2022 2:14pmNote Date/TimeFebruary 2022 2:14pmD[place] [address] Gastroenterology H&P Signed Patient: Jose Alberto Saleem MR#: [id number] : 1965 Acct:[id number] Age/Sex: 57 / F Adm Date: 3 Loc: Room: Type: [facility] Attending Dr: Evert Bruno MD Copies [...] signed by Evert Bruno MD> 11/02/22 1414 [facility] Work Phone: History general Narrative - Reported* Type Description Date Medical History impaired fasting glucose Medical Historyheart disease, [place] stents, CABGMedical HistoryHypertensionMedical HistoryhyperlipidemiaMedical Historynut cracker esophogusSurgical HistoryCABG remote historySurgical Historygastric [id number] Historymultiple kidney stones removedSurgical HistoryappendectomySurgical Historycyst on ovarian removedSurgical Historybilateral carpe tunnel [id number] History cholecystectomyHospitalization Historysee surgical hx [employer] Other Hospital course Narrative No data available for this section [facility] Hospital Discharge instructions Additional Instructions DISCHARGE [...] problems. -Follow up with PCP. -Office number [phone]. [facility] Work Phone: Hospital Discharge [...] problems. -Follow up with PCP. -Office number [phone]. [facility] Work Phone: Hospital Discharge instructions No data available for this section [facility] InstructionsNot on filedocumented in this encounter [employer] SystemInstructionsNot on filedocumented in this encounter [employer] Open[employer] SystemInstructionsNot on filedocumented in this encounter [facility] note No data available for this section [facility] reason for referral (narrative)* Consultation (Routine) - AuthorizedSpecialtyDiagnoses / ProceduresReferred By ContactReferred To ContactCardiology Diagnoses Atherosclerosis of coronary artery of stony river heart without angina pectoris, unspecified vessel or lesion type History of coronary artery bypass graft Procedures Follow Up In Cardiology Celso Garibay DO [address] [place] [address], [address] [address] Celso Garibay DO [address] [facility] 2, [address] [address] Referral IDStatusReasonStart DateExpiration DateVisits RequestedVisits [id number]/14/202311/13/202411 [facility] Work Phone: Reason for visit Narrative* Other Medical (Routine) - ClosedSpecialtyDiagnoses / ProceduresReferred By ContactReferred To Contact Neurology Diagnoses Arm weakness Numbness Arm pain, right Ulnar neuropathy of right upper extremity Procedures EMG AND NERVE CONDUCTION STUDY Raji Byrd, [address] [place] [address] Phone: tel: fax: Rae Louie MD [address] [address] Phone: tel: fax: Referral IDStatusReasonStart DateExpiration DateVisits RequestedVisits [id number]/[id number] [facility] Summary Purpose Family History No Family History [...] artery bypass surgeryUnknownCerebrovascular accident (CVA)Unknown Advance Directives No Advanced Directives Records FoundDocuments on File TypeDate RecordedPatient RepresentativeExplanationAdvance Directives and Living WillPower of AttorneyTypeDate RecordedPatient RepresentativeExplanationACP- Advance DirectiveACP-Power of Forward Air Controller/Air Officer Advance Directive Response Recorded Date/ Time Advance [...] adverse reactions to other medications, hypotension. * [place] [employer] is class I * Recommendations, [...] and content) DATE CREATED AUTHOR 03/26/2018 [facility] DATE CREATED AUTHOR AUTHOR'S ORGANIZ ATION 03/26/2018 [facility] DATE CREATED AUTHOR AUTHOR'S ORGANIZ ATION 08/02/2022 [facility] DATE CREATED AUTHOR AUTHOR'S ORGANIZ ATION 08/17/2022 [employer] DATE CREATED AUTHOR AUTHOR'S ORGANIZ ATION 10/17/2022 [facility] DATE CREATED AUTHOR AUTHOR'S ORGANIZ ATION 06/23/2023 [facility] DATE CREATED AUTHOR AUTHOR'S ORGANIZ ATION 07/16/2023 [facility] DATE CREATED AUTHOR AUTHOR'S ORGANIZ ATION 01/19/2024 [facility] DATE CREATED AUTHOR AUTHOR'S ORGANIZ ATION 03/07/2024 [facility] DATE CREATED AUTHOR AUTHOR'S ORGANIZ ATION 09/15/2024 [facility] DATE CREATED AUTHOR AUTHOR'S ORGANIZ ATION 10/16/2024 [facility] DATE CREATED AUTHOR AUTHOR'S ORGANIZ ATION 01/22/2025 [facility] DATE CREATED AUTHOR AUTHOR'S ORGANIZ ATION 06/15/2025 [facility] DATE CREATED AUTHOR AUTHOR'S ORGANIZ ATION 06/24/2025 [facility] DATE CREATED AUTHOR AUTHOR'S ORGANIZ ATION 07/25/2025 [facility] Care Teams (unrecognized sec tion and content) [...] Ashley Grigsby MD Primary Care Provider Active Imad Asaad , MDAttending ProviderActiveTeam MemberRelationshipSpecialtyStart DateEnd Date Ashley Grigsby MD [address] [place] [address] PCP - GeneralFamily Riezxvfb75/19/19Team MemberRelationshipSpecialtyStart Date End Date Ashley Grigsby MD [address] [place] [address] PCP - GeneralFamily Qowiopnq72/19/19Team MemberRelationshipSpecialtyStart Date End Date Ashley Grigsby MD [address] [place] [address] PCP - Vzqpsoq29/17/21Team MemberRelationshipSpecialtyStart DateEnd Date Ashley Grigsby MD [address] [place] [address] PCP - Ivswvcw29/17/21Team MemberRelationshipSpecialtyStart DateEnd Date Ashley Grigsby MD [address] [place] [address] PCP - Ohujdnu09/17/21 Anita Hammonds, RN Care ManagerCase Pxissohire56/22/24Team MemberRelationshipSpecialtyStart DateEnd Date Ashley Grigsby MD [address] [place] [address] PCP - General02/22/17Team MemberRelationshipSpecialtyStart DateEnd Date Ashley Grigsby MD [address] [place] [id number] PCP - General02/22/17Team MemberRelationshipSpecialtyStart DateEnd Date Ashley Grigsby MD [address] [place] [address] PCP - General02/22/17Team MemberRelationshipSpecialtyStart DateEnd Date Ashley Grigsby MD [address] [place] [phone] PCP - GeneralFamily Bjigtpgg94/14/23Team MemberRelationshipSpecialtyStart Date End Date Ashley Grigsby MD [address] [place] [facility] [address] PCP - GeneralFamily Mlvvevhk11/14/23Team MemberRelationshipSpecialtyStart Date End Date Ashley Grigsby MD [address] [place] [facility] [address] PCP - GeneralFamily Medicine02/13/25Team MemberRelationshipSpecialtyStart DateEnd Date Ashley Grigsby MD [address] [place] [facility] [address] PCP - GeneralFamily Medicine02/13/25Team MemberRelationshipSpecialtyStart DateEnd Date Ashley Grigsby MD [address] [place] [facility] [address] PCP - GeneralFamily Medicine02/13/25Team MemberRelationshipSpecialtyStart DateEnd Date Ashley Grigsby MD [address] [place] [facility] [address] PCP - GeneralFamily Medicine02/13/25Team MemberRelationshipSpecialtyStart DateEnd Date Ashley Grigsby MD [address] [place] [facility] [address] PCP - GeneralFamily Medicine02/13/25Team MemberRelationshipSpecialtyStart DateEnd Date Ashley Grigsby MD [address] [place] [address] PCP - GeneralFamily Medicine02/13/25 REASON FOR VISIT (unrecogniz ed section and content) SpecialtyDiagnoses / ProceduresReferred By ContactReferred To Contact Diagnoses Post-menopausal bleeding Inclusion cyst Post-menopausal bleeding [N95.0] Inclusion cyst [L72.0] Procedures MI HYSTEROSCOPY BX ENDOMETRIUM&/POLYPC W/WO D&C MI DESTRUCTION BENIGN LESIONS UP TO 14 DILATATION AND CURETTAGE HYSTEROSCOPY-REMOVAL OF INCLUSION CYST Gaby Phillips, DO [address] [place] [address] [facility] [address] [place] [address] Referral IDStatusReasonStegnar DateExpiration DateVisits RequestedVisits [id number] / Procedures Referred By ContactReferred To ContactCardiology Diagnoses Atherosclerosis of coronary artery of [place] heart without angina pectoris, unspecified vessel or lesion type History of coronary artery bypass graft Procedures Follow Up In Cardiology Celso Garibay, [address] [place] [address], [address] [address] Phone: tel: fax: Celso Gairbay, DO [address] [facility], [address] [address] Phone: tel: fax: Referral IDStatusReasonPaxton DateExpiration DateVisits RequestedVisits [id number] discharge 08/22ReasonCommentsMed RefillReasonCommentsPainReasonCommentsPain Ordered Prescriptions (unrec ognized section and content) PrescriptionSigDispensedRefillsStart DateEnd Date ketorolac (TORADOL) 10 MG tablet Take 1 tablet by mouth every 6 hours as needed for Pain 10 tablet / Scheduled Active and Recently Administ ered Medications (unrecognized section and content) Medication Order/ acetaminophen (TYLENOL) tablet 650 mg (COMPLETED) 650 [...] mL/lumen, PACU only * 2100 (Due) Medication Order/// lactated ringers IV soln infusion IntraVENous, at 100 mL/hr, CONTINUOUS, Starting on Sun06/18/23 at 1345, Pre-op (day of surgery) * 1343 (New Bag - Provider: Sigrid Mendoza RN) * 1401 (NoRateChange - Provider: OTONIEL Fragoso CRNA) * 1432 (Paused - Provider: OTONIEL Fragoso CRNA - Comment: Switch to gravity) * 1433 (Restarted - Provider: OTONIEL Fragoso CRNA) Medication Order// 0.9 % sodium chloride infusion IntraVENous, at [...] BE BASED ON THE PRIMARY CLINICAL RECORDS. [facility]. provides no warranty or guarantee of the accuracy or completeness of information in this document.
== END 2025-07-29 14:40 | disposition home or self-care (01) ==
LOC: LAB 14:39
PROVIDERS: PCP Family Medicine; Visit Provider Family Medicine
DX: Z00.00 Encounter for general adult medical examination without abnormal findings (principal)
CPT/HCPCS: G0328

== ENCOUNTER 2025-07-29 14:44 | Outpatient (OUT) | payer BC, SELFPAY ==
--- NOTE | 2025-07-29 14:47 | MM_ITS ---
Patient Name: JOSE ALBERTO SALEEM MR#: [id number] : 1965 Exam Date: 07/29/2025 Ordering Doctor: DR ASHLEY GRIGSBY . RADIOLOGY REPORT PROCEDURE: MM TOMOSYNTHESIS SCREENING BI COMPARISON: MAMMO LEIA SCREEN, 08/15/2023. MAMMO LEIA SCREEN, 07/24/2022. MAMMO LEIA SCREEN, 10/28/2020. INDICATIONS: Screening Calculator Name NCI Breast Cancer Risk Assessment Tool 5 Year Breast Cancer Risk 1.80% Lifetime Breast Cancer Risk 8.60% Personal Breast Cancer No Personal Ovarian Cancer No Treatments None Family Cancers Mother with cervical cancer at age ~40. LOCATION: [facility] BREAST COMPOSITION: There are scattered areas of fibroglandular density. FINDINGS: LEFT BREAST: No significant suspicious finding. Benign-appearing calcifications are present. Similar focal asymmetries are present on the left. RIGHT BREAST: There is a 4 mm asymmetry in the right breast medially 6.3 cm from the level slightly inferiorly at the 4 o'clock position . This is in the middle depth. This is seen only on CC view and is new when compared to the prior exam. Benign-appearing calcifications are present. DIAGNOSTIC CATEGORY 0--INCOMPLETE: NEED ADDITIONAL IMAGING EVALUATION. RECOMMENDATIONS: ADDITIONAL MAMMOGRAPHIC VIEWS REQUIRED: RIGHT BREAST - spot compressed views of the right breast with ultrasound if this area is recommended. Dictated by: Corbin Preciado MD on 08/06/2025 at 10:46 Approved by: Corbin Preciado MD on 08/06/2025 at 10:56
--- OUTSIDE RECORDS SUMMARY | 2025-07-29 14:53 | XMS_ITS | CCD ---
Author Organization [facility] Care Team Providers Care Automobile Locator Name Role Phone UNKNOWN, PROVIDER Unavailable Unavailable ASHLEY GRIGSBY Unavailable Unavailable UNKNOWN, PROVIDER Unavailable Unavailable ASHLEY GRIGSBY Unavailable Unavailable Ashley Grigsby Primary Care Provider Ashley Grigsby Unavailable Unavailable Unavailable Ashley Grigsby MD Primary Care Provider [phone] Unavailable Unavailable Ashley Grigsby Primary Care Physician [...] Unavailable MD Ashley Grigsby Primary Care Provider [phone] MD Evert Bruno Attending Provider Evert Bruno Unavailable MD Ashley Grigsby Primary Care Provider [phone] MD Evert Bruno Attending Provider [phone] Ashley Grigsby MD Primary Care Provider [phone] GABY PHILLIPS Admitting Unavail able GABY PHILLIPS Attending Unavail able ASHLEY GRIGSBY Primary Care Unavailable ASHLEY GRIGSBY Primary Care Unavailable Ashley Grigsby MD Primary Care Provider [phone] STEPHANIE BERGER Attending Unavailable ASHLEY GRIGSBY Referring [...] Unavailable Ashley Grigsby MD Primary Care Provider [phone] Lynnette Chapman MD Emergency Provider Donis Arroyo DO Admit Provider Donis Arroyo DO Attending Provider [phone] Anita Hammonds RN Unavailable Unavailable Donis Arroyo [...] Unavailable Ashley Grigsby MD Primary Care Provider [phone] Ashley Grigsby MD Primary Care Provider [phone] CHAUNCEY KIMBLE T Referring Unavailable ASHLEY GRIGSBY Primary Care Unavailable RADHA JAIMES Referring Unavailable ASHLEY GRIGSBY Primary Care Unavailable Ashley Grigsby MD Primary Care Provider [phone] NARANDI, ALI Attending Unavailable NAWRAS, ALI Referring [...] OnsetReaction(s) Facility (20 sources)Baclofen; Translations: [Baclofen TABS]Drug Vubghfk03-61-1181Wkbot (See Comments), [place] ([place])Latex; Translations: [LATEX]Propensity to adverse reactions to drug 65-08-7705Ehqffhrizun, Shortness Of Breath, Anaphylaxis (disorder)[place], [place] (16 sources)Penicillins; Translations: [penicillins]Propensity to adverse reactions to ieby05-51-0775Rvbfz, Anaphylaxis (disorder)[place], [place] (3 sources)rosuvastatinDrug Wbfgqpy64-07-2027[facility]- [place], [place] (20 sources)Sulfamethoxazole / Trimethoprim; Translations: [Bactrim TABS]Drug Ajadevh00-07-3685OrnxsHlyjs [facility]- [place], [place] (11 sources)natural latex rubberAllergy to substance (finding)[facility]Reg[facility] 250 [facility] Work Phone: (11 sources)Penicillins; Translations: [Penicillins]Allergy to drug (finding) [facility] Work Phone: (20 sources)rosuvastatin; Translations: [Crestor TABS]Drug Gfdcpvy35-13-2248 Elevated liver enzymes level (finding), Other, Other (See Comments)[facility] (16 sources)Sulfonamides (Antibiotic); Translations: [Sulfa Drugs]Allergy to drug (finding)[facility] (20 sources)levoFLOXacin; Translations: [levofloxacin]Drug Ikhshya01-75-8312 Other (See Comments), Candidiasis (disorder)[facility] Signdat Work Phone: (8 sources)Phenazopyridine; Translations: [PHENAZOPYRIDINE HCL]Drug Allergy 95-88-1746Rmizxf And VomitingCleveland Clinic Union Hospital Health Work Phone: (3 sources)Simvastatin; Translations: [SIMVASTATIN]Drug Pfknlxm96-68-2675Jrhbx Health Work Phone: (15 sources)Sulfonamides (Antibiotic)Propensity to adverse reactions to drug 61-14-9828Xumal (See Comments), Hives, [facility]Sam[facility]itan [facility] (12 sources)Tobramycin; Translations: [tobramycin]Drug Xligugb06-08-9056Zarcxyod of skin (disorder), [facility] (1 source)BaclofenDrug AllergyThe [facility] (1 source)LatexDrug allergy (disorder)[facility] (5 sources)levoFLOXacin; Translations: [Levaquin]Drug AllergythrushDoctors Hospital Repository (1 source)PenicillinsDrug allergy (disorder)[facility] (1 source)rosuvastatinDrug AllergyThe [facility] (1 source)Sulfonamides (Antibiotic)Drug allergy (disorder)[facility] (11 sources)rosuvastatin; Translations: [ROSUVASTATIN]Drug Hozvvto31-08-6312 [facility]psetK[facility] (5 sources)Sulfamethoxazole; Translations: [sulfamethoxazole]Drug Allergy 39-70-3717Scpcf, Hives, ([place]) 08/08/2011[facility] (20 sources)Trimethoprim; Translations: [trimethoprim]Drug Gqshbbn60-93-1583 Hives, Hives, ([place]) 08/08/2011[facility] (6 sources)Fenofibrate; Translations: [FENOFIBRATE]Drug Wzokbxq05-86-0815([place]) 08/08/2011[employer] (3 sources)PenicillinDrug Allergy([place]) 08/08/2011[facility] [place] Other (9 sources)Substance with sulfonamide structure and antibacterial mechanism of action (substance)Drug ikrxfoi08-14-1153Sznmuwohq of breath, HivesNort [place] Other (7 sources)PenicillinsPropensity to adverse reactions to dajx41-09-9084Wlszw, RashBON PHOENIX INDIAN MEDICAL CENTERmarshallindex (14 sources)TobramycinDrug Yrenpsl62-43-3728WegqHTY [facility] (7 sources)Fenofibrate; Translations: [FENOFIBRATE MICRONIZED]Drug Allergy 12-36-4101VpiDjvrfy Repository (7 sources)Sulfonamides (Antibiotic); Translations: [SULFA (SULFONAMIDE ANTIBIOTICS)]Propensity to adverse reactions to drug (disorder)14-94-4535Evzbxsq ReactionProMedica Repository (1 source)BaclofenDrug Bxmqrhh30-04-1250GdemqqxdyKettering Health Behavioral Medical Center Repository (1 source)FenofibrateDrug Tattwmx03-26-7149XpulcbefsKettering Health Behavioral Medical Center Repository (1 source)LatexDrug allergy (disorder)41-33-6719LgrvztlpeKettering Health Behavioral Medical Center Repository (1 source)levoFLOXacinDrug Blahwrc09-08-3021AjbskfnycKettering Health Behavioral Medical Center Repository (1 source)PenicillinsDrug allergy (disorder)44-76-9184EqruukuhpKettering Health Behavioral Medical Center Repository (13 sources)BaclofenDrug Cnkcpyh42-88-5502Cfvvv, Shortness of breathNOMS Healthcare (13 sources)FenofibrateDrug Tukputy93-55-4334NG intoleranceNOMS Healthcare (14 sources)fluvastatin; Translations: [FLUVASTATIN]Drug Kphwwfa17-83-7452YLVZ Healthcare (13 sources)LatexAllergy to urmvvexlk85-46-8735Hbxgvrxiaep, Shortness of breath [facility] (13 sources)PenicillinsDrug Aglmhnqfezz12-35-5850Gywpp, RashNOMS Healthcare (14 sources)Phenazopyridine; Translations: [PHENAZOPYRIDINE]Drug Allergy 03-71-9153SH intoleranceNOMS Healthcare (1 source)natural latex rubber; Translations: [LATEX, NATURAL RUBBER]Propensity to adverse reactions to drug (disorder)54-88-3579IniljzrqbzGlenbeigh Hospital Repository Medications Current Medications MedicationDrug Class(es)DatesSig (Normalized)Sig (Original)amLODIPine 2.5 mg oral tablet (1 source)Dihydropyridine Calcium Channel Blockertake 1 tablet by mouth once dailyamLODIPine (Norvasc) 2.5 mg tablet Take 1 tablet (2.5 mg) by mouth once daily. Activeaspirin 81 mg delayed release oral tablet (20 sources)Platelet Aggregation Inhibitor, Nonsteroidal Anti-inflammatory Drug Start: 03-67-4829pxgj 1 tablet by mouth once dailyaspirin 81 mg EC tablet Indications: Atherosclerosis of coronary artery bypass graft of [place] heart without angina pectoris , History of coronary artery bypass graft take 1 tablet by mouth once daily 90 tablet 3 09/25/2023 ActiveStart: 65-86-0692doacmcc 81 mg, Refills(s) 0 Start Date: 10/27/19 Status: Orderedtake 1 tablet by mouth every twenty-four hoursAspirin 81 mg 1 tablet Orally Once a day for 30 day(s) Active ASPIRIN 81 PO Take by mouth 0 Activeatorvastatin 20 mg oral tablet (20 sources)HMG-CoA Reductase InhibitorStart: 10-27-2019 End: 30-00-3725iopp 1 tablet by mouth once dailyatorvastatin (Lipitor) 20 mg tablet Indications: Mixed hyperlipidemia Take 1 tablet (20 mg) by mouth once daily. 90 tablet 3 05/14/2024 08/13/2024 Discontinued (Therapy completed)take 1 tablet by mouth at bedtimeLipitor 40 MG 1 tablet Orally at hs for 30 day(s) ActiveBariatric Multivitamins with 45 mg Iron (4 sources)Start: 18-28-7082Bhcvoxwkt Multivitamins with 45 mg Iron Oral, Daily, [...] lactate 0.028 meq/ml injectable solution (1 source)Start: 30-66-7711qnxgilnt ringers IV soln infusioncholecalciferol 0.125 mg oral capsule (3 sources)Vitamin Dtake 2 capsules by mouth four times weeklycholecalciferol, vitamin D3, (VITAMIN D3) 5,000 units capsule Take 10,000 Units by mouth 4 (four) times a week. Activecitalopram 40 mg oral tablet (20 sources)Serotonin Reuptake InhibitorStart: 49-49-3809sust 1 tablet by mouth once dailycitalopram (CeleXA) 40 mg tablet Take 1 tablet (40 mg) by mouth once daily. 08/03/2024 ActiveStart: 50-25-7985iscl 4 tablets by mouth once daily Citalopram 10 mg tablet Active 40 MG PO Daily November 01, 2022 12:00amStart: 40-70-3161edxo 10 mg by mouth once dailyCitalopram Active 10 MG PO Daily November 01, 2022 1:00am End: 44-44-6122yhgxyhlofa (CeleXA) 20 MG tablet Take 20 mg by mouth Activetake 2 tablets by mouth once dailycitalopram (CELEXA) 10 MG tablet Take 2 tablets by mouth daily 0 Activeclopidogrel 75 mg oral tablet (11 sources)P2Y12 Platelet InhibitorStart: 09-05-2024 End: 28-82-9230rfmx 1 tablet by mouth once dailyclopidogrel (Plavix) 75 mg tablet Indications: Atherosclerosis of coronary artery bypass graft of [place] heart without angina pectoris , S/P PTCA (percutaneous transluminal coronary angioplasty) , History of coronary artery bypass graft Take 1 tablet (75 mg) by mouth once daily. 90 tablet 3 09/05/2024 09/05/2025 Activediclofenac sodium 0.03 mg/mg topical gel (16 sources)Nonsteroidal Anti-inflammatory DrugStart: 54-85-6288pfzijvzmoo sodium 3 % gel twice a day. 12/28/2020 ActiveStart: 38-05-4779Gjbrvjjikx Sodium 3 % External Gel APPLY SPARINGLY TO THE AFFECTED AREA(S) TWICE DAILY. Quantity: 0Refills: 0 Ordered: 28-Dec-2020 DO Start : 28-Dec-2020 Activedocusate sodium 100 mg oral capsule (17 sources)take 1 capsule by mouth twice dailydocusate sodium (Colace) 100 mg capsule Take 1 capsule (100 mg) by mouth 2 times a day. Activeergocalciferol 1.25 mg oral capsule (3 sources)Provitamin D2 CompoundStart: 65-23-9057lfie 1 capsule by mouth two times weeklyVitamin D (Ergocalciferol) 66641 UNIT 1 capsule Orally TWICE a Week for 90 day(s) May, Activeestradiol 0.1 mg/ml vaginal cream (5 sources)EstrogenStart: 58-77-9973Vbpyxldau 0.01 % (0.1 mg/gram) cream Active 1 APPLICATOR VAGINAL Four times daily August 19, 2024 12:00amStart: 60-18-1330yflkgojag (Estrace) 0.01 % (0.1 mg/gram) vaginal cream Insert into the vagina once daily. 07/23/2024 ActiveStart: 70-60-8886Igkjdga 0.1 mg/g Cream See Instructions, 42.5 gm, Refill(s) 6, apply a pea-sized amount vaginally and around the urethra nightly x 3 weeks, then 3x per week thereafter, [facility] #51480, 160, cm, 04/10/24 15:13:00 EDT, Height/Length Dosing, 74, kg, 04/10/24 15:13:00 EDT, Weight Dosing Start Date: 04/10/24 Status: Ordered fluticasone propionate 0.05 mg/actuat metered dose nasal spray (20 sources)CorticosteroidStart: 01-17-2024 End: 97-14-3329rdyo 2 spray(s) nasal route in the morningfluticasone propionate (FLONASE) 50 mcg/actuation nasal spray Administer 2 sprays into each nostrilin the morning. 16 g 11 02/14/2024 ActiveStart: 65-84-5424Edygfepdfdj Propionate 50 mcg/actuation spray,suspension Active 1 SPRAY INTRANASAL Daily November 01, 2022 12:00amStart: 65-65-6482gxli 1 spray(s) nasal route twice dailyfluticasone (Flonase) 50 mcg/actuation nasal spray Administer 1 spray into affected nostril(s) 2 times a day. 11/26/2020 ActiveStart: 88-68-7047cfil 1 spray(s) nasal route twice dailyFluticasone Propionate 50 MCG/ACT Nasal Suspension USE 1 SPRAY IN EACH NOSTRIL TWICE DAILY. Quantity: 0 Refills: 0 Ordered: 26-Nov-2020 DO Start : 26-Nov-2020 ActiveStart: 76-10-9267kvuisfafqkn 0.05 mg/inh Nasal [place] Refill(s) 0 Start Date: 04/30/20 Status: OrderedStart: 10-24-2017 End: 67-02-5565fawo 2 spray(s) nasal route once dailyfluticasone (FLONASE) 50 mcg/actuation nasal spray Indications: Chronic pansinusitis Administer 2 sprays into each nostril daily. 16 g 10/24/2017 02/29/2024 Discontinued (Duplicate Listing)fluticasone 0.05 mg/inh Nasal [place] (3 sources)Start: 72-77-5499tvvexpdqpyq 0.05 mg/inh Nasal [place] Refill(s) 0 Start Date: 04/30/20 Status: Orderedfurosemide 40 mg oral tablet (3 sources)Loop Diuretictake 1 tablet by mouth every twenty-four hoursLasix 40 MG 1 tablet Orally Once a day for 30 day(s) ActivehydroCHLOROthiazide 12.5 mg oral tablet (20 sources)Thiazide DiureticStart: 07-19-2023 End: 65-32-5045jtfy 6.25 mg by mouth once dailyhydrochlorothiazide 12.5 mg Tab 6.25 mg = 0.5 tab(s), Oral, Daily, X 90 day(s), # 45 tab(s), Refills(s) 3, Pharmacy: [facility], 160, cm, 06/02/22 8:29:00 EDT, Height/Length Dosing, 61.2, kg, 06/02/22 8:29:00 EDT, Weight Dosing Start Date: 07/19/23 Stop Date: 07/13/24 Status:OrderedStart: 18-68-1643nuhe 6.26 mg by mouth once dailyHydrochlorothiazide 12.5 mg tablet Active 6.26 MG PO Daily November 01, 2022 12:00amStart: 50-55-1627xzhb 6.26 mg by mouth once daily Hydrochlorothiazide Active 6.26 MG PO Daily November 01, 2022 1:00amStart: 12-11-2020 End: 73-06-4316dqde 0.5 tablet by mouth once dailyhydroCHLOROthiazide (HYDRODiuril) 12.5 mg tablet Take 0.5 tablets (6.25 mg) by mouth once daily. 08/13/2024 Discontinued (Discontinued by another clinician)Start: 22-64-6077nsog 1 tablet by mouth once dailyhydrochlorothiazide 12.5 mg Tab 12.5 mg = 1 tab(s), Oral, Daily, # 90 tab(s), Refills(s) 3, Pharmacy: [facility], 160, cm, 05/27/21 8:19:00 EDT, Height/Length Dosing, 61, kg, 05/27/21 8:19:00 EDT, Weight Dosing Start Date: 10/07/21 Status: Ordered ketorolac tromethamine 10 mg oral tablet (1 source)Nonsteroidal Anti-inflammatory Drug, Cyclooxygenase InhibitorStart: 06-18-2023 End: 20-57-9601mdmo 1 tablet by mouth every six hours [...] hydrochloride 500 mg oral tablet (3 sources)BiguanideStart: 55-65-4867idlb 1 tablet by mouth twice daily Glucophage XR 500 MG 1 tablet Orally twice a days for 90 days Nov, Active2 ml metoclopramide 5 mg/ml prefilled syringe (1 source)Dopamine-2 Receptor AntagonistStart: 06-18-2023 End: 98-58-929575 mg, IntraVENous, ONCE PRN, 1 dose, Starting on Sun06/18/23 at 1449, Until Sun06/19/23 at 1449, Nausea Secondary antiemetic therapy. PACU only 24 hr mirabegron 50 mg extended release oral tablet (5 sources)beta3-Adrenergic AgonistStart: 08-05-2024 End: 15-56-6095xqtt 1 tablet by mouth once dailymirabegron (Myrbetriq) 50 mg tablet extended release 24 hr 24 hr tablet Take 1 tablet (50 mg) by mouth once daily. 08/05/2024 ActiveStart: 04-10-2024 End: 91-68-1423bqts 1 tablet by mouth once dailymirabegron 25 mg oral tablet, extended release 25 mg = 1 tab(s), Oral, Daily, do not fill both mirabegron AND vibegron. only fill whichever has lower co-pay., X 30 day(s), # 30 tab(s), Refills(s) 11,Pharmacy: [facility] #[id number], 160, cm, 04/10/24 15:13:00 EDT, Height/Length Dosing, 74, kg, 04/10/24 15:13:00 EDT, Weight Dosing Start Date: 04/10/24 Stop Date: 04/05/25 Status: Orderedmometasone furoate 1 mg/ml topical cream (15 sources)CorticosteroidStart: 66-59-7790Jqanrmicxs 0.1 % cream Active 1 APPLIC TOPICAL Daily August 19, 2024 12:00amStart: 70-09-7772lalzexabav (Elocon) 0.1 % cream twice a day. 12/25/2020 ActiveStart: 30-13-8432Vjssagiwxn Furoate 0.1 % External Cream APPLY SPARINGLY TO AFFECTED AREAS TWICE DAILY.(AM AND PM). Quantity: 0 Refills: 0 Ordered: 25-Dec-2020 DO Start : 25-Dec-2020 Activemontelukast 10 mg oral tablet (3 sources)Leukotriene Receptor Antagonisttake 1 tablet by mouth every twenty- four hoursSingulair 10 MG 1 tablet in the evening Orally Once a day for 30 day(s) ActiveMulti Vitamin+ (4 sources)Start: 67-32-8119Lukfa Vitamin+ Refill(s) 0 Start Date: 10/27/19 Status: OrderedMultiple Vitamin (MVI, BARIATRIC ADVANTAGE VITABAND, CHEW TAB) (1 source)take 1 tablet by mouth once dailyMultiple Vitamin (MVI, BARIATRIC ADVANTAGE VITABAND, CHEW TAB) Take 1 tablet by mouth daily 0 ActiveMultiple Vitamins-Minerals (PRESERVISION AREDS 2 PO) (1 source)Multiple Vitamins-Minerals (PRESERVISION AREDS 2 PO) Take by mouth 0 Ljrpzphvqyucxj-swdq-IS-calcium &mins (THERAGRAN-M) 9 mg iron-400 mcg tablet (3 sources)mdhezzld-jrbm-XN-calcium &mins (THERAGRAN-M) 9 mg iron-400 mcg tablet Take 1 tablet by mouth inthe morning. Activemultivit-min/ferrous fumarate (MULTI VITAMIN ORAL) (3 sources)take 1 tablet by mouth twice dailymultivit-min/ferrous fumarate (MULTI VITAMIN ORAL) Take 1 tablet by mouth 2 times a day. Activetake 1 tablet by mouth twice dailymultivit-min/ferrous fumarate (MULTI VITAMIN ORAL) Take 1 tablet by mouth 2 times a day. 0 QxinjdQntohtkvicno-Qpd-Zdym-Fa-Vit K (Bariatric Multivitamins) 45 mg iron- 800 mcg-120 mcg Capsule (4 sources)Start: 64-77-5150aahw 1 capsule by mouth twice daily Xoxxrmmhihbp-Gvk-Uqxo-Fa-Vit K (Bariatric Multivitamins) 45 mg iron- 800 mcg-120 mcg Capsule Active1 CAP PO Twice daily November 01, 2022 1:00amStart: 68-94-2691kdlc 1 capsule by mouth twice suiueBlhxvslbwlab-Mgo-Wanl-Fa-Vit K (Bariatric Multivitamins) 45 mg iron- 800 mcg-120 mcg Capsule Active1 CAP PO Twice daily November 01, 2022 12:00amMultivitamins (3 sources)Multivitamins Orally daily ActiveNIFEdipine 60 mg oral tablet (3 sources)Dihydropyridine Calcium Channel Blockertake 1 capsule by mouth once dailyProcardia 60 mg 1 capsule Orally daily for 30 day(s) Activenitroglycerin 0.4 mg sublingual tablet (18 sources)Nitrate VasodilatorStart: 12-25-2020 End: 86-48-4584cplirznvmfkqg (Nitrostat) 0.4 mg SL tablet Indications: Atherosclerosis of coronary artery of [place] heart without angina pectoris, unspecified vessel or lesion type Place 1 tablet (0.4 mg) under thetongue every 5 minutes if needed for chest pain. 90 tablet 3 08/14/2023 ActiveNitrostat 0.4 MG 1 tablet under the tongue Sublingual as directed for 30 day(s) Activenystatin 100 unt/mg topical powder (17 sources)Polyene AntifungalStart: 57-68-8520iyabfwon ([facility]) 100,000 unit/gram powder apply topically to affected area twice a day if needed ActiveStart: 93-62-0208HHJVZS powder 04/19/2018 Activeomega-3 acid ethyl esters (intermediate) 1000 mg oral capsule (3 sources)take 2 capsules by mouth every twelve hoursLovaza 1 GM 2 capsules Orally Twice a day for 30 day(s) Active2 ml ondansetron 2 mg/ml injection (8 sources)Serotonin-3 Receptor AntagonistStart: 06-18-2023 End: mg, IntraVENous, ONCE PRN, 1 dose, Starting on Sun06/18/23 at 1449, Until Sun06/19/23 at 1449, Nausea Initial antiemetic therapy. PACU only Start: 55-16-1491dqdu 1 tablet by mouth every eight hours as needed for nausea ondansetron ODT (ZOFRAN ODT) 4 mg disintegrating tablet Dissolve 1 tablet (4 mg total) on tongue every 8 (eight) hours as needed for nausea for up to 10 doses. 10 tablet 10/04/2022 ActiveStart: 04-17-2018 End: 59-75-3398lmpq 1 tablet by mouth every eight hours as needed for nausea and vomitingOndansetron (Zofran Odt) 8 mg tablet,disintegrating Discontinued 8 MG PO Q8H as needed for nausea and vomiting 10 5 April 16, 2018 11:00pm April 20, 2018 11:00pm April 21, 2018 11:01pmpolyethylene glycol 3350 075911 mg / potassium chloride 2970 mg / sodium bicarbonate 6740 mg / sodium chloride 5860 mg / sodium sulfate 90745 mg powder for oral solution (3 sources)Osmotic LaxativeStart: 93-49-8675sjyw 236 g by mouth onceGolytely 236 GM as directed Orally the day prior to colonoscopy for 1 days Oct, Activeprasugrel 10 mg oral tablet (3 sources)P2Y12 Platelet Inhibitortake 10 mg by mouth once dailyeffient 10 mg once a day po ActivePreserVision AREDS (2 sources)Start: 89-54-8576XgcgdoRqqtoa AREDS Refill(s) 0 Start Date: 04/10/24 Status: Orderedpromethazine hydrochloride 25 mg oral tablet (7 sources)PhenothiazineStart: 07-04-6799bjle 1 tablet by mouth every four hours as needed for nauseaPromethazine 25 mg tablet Active 25 MG PO Q4H as needed for Nausea November 01, 2022 12:00amtake 1 tablet by mouth every twelve hours Promethazine HCl 25 MG 1 tablet as needed Orally every 12 hrs ActiveRABEprazole sodium 20 mg delayed release oral tablet (20 sources)Proton Pump InhibitorStart: 08-41-9754qvwg 1 mg by mouth once daily rabeprazole 20 mg oral enteric coated tablet mg tab(s), Oral, Daily, Refills(s) 0 Start Date: 05/27/21 Status: OrderedStart: 10-12-9010TIDSjortpkl Sodium 20 MG Oral Tablet Delayed Release Quantity: 180 Refills: 0 Ordered: 27-Dec-2020 DO Start : 27-Dec-2020 CompleteStart: 88-16-4175qdrw 1 tablet by mouth twice daily Rabeprazole 20 mg tablet,delayed release (DR/EC) Active 20 MG PO Twice daily April 16, 2018 11:00pmtake 1 tablet by mouth three times dailyAciphex EC tablet Take 1 tablet (20 mg) by mouth 3 times a day. Activesod ndhxh-ttcdyq-ujicmb bottle (NEILMED SINUS RINSE COMPLETE) packet with rinse device nasal solution (3 sources)Start: 58-27-6563bhfd 1 dose nasal route once dailysod niezr-bkgohk-bqfugl bottle (NEILMED SINUS RINSE COMPLETE) packet with rinse device nasal solution Indications: S/P nasal septoplasty Administer 1 packet into each nostril daily. 60 packet 09/13/2017 Active5 ml sodium chloride 9 mg/ml injection (9 sources)Start: 71-00-4786niti 1 dose intravenously twice daily5-40 mL, IntraVENous, [...] 20 mL/lumen Pre-op (day of surgery) Start: 17-37-4553mqtv 1 dose intravenously twice daily5-40 mL, IntraVENous, [...] Central Line = 20 mL/lumen PACU onlyStart: 74-90-5404aylazg chloride flush 0.9 % injection 5-40 mLStart: 82-49-4599YoblgQYTdkp, at 5-250 mL/hr, PRN, if patient receiving [...] into rate field of order. PACU onlyStart: 54-81-1503urjf 5-40 mL intravenously once as needed5-40 mL, [...] onlyStart: .9 % sodium chloride infusion Start: 09-11-9590kkotmt chloride flush 0.9 % injection 5-40 mLtamsulosin hydrochloride 0.4 mg oral capsule (20 sources)alpha-Adrenergic BlockerStart: 10-26-2020 End: 07-17-4311ipup 1 capsule by mouth twice dailyFlomax 0.4 mg Cap 0.4 mg = 1 cap(s), Oral, BID, X 90 day(s), # 180 cap(s), Refills(s) 3, Pharmacy: [facility], 160, cm, 05/27/21 8:19:00 EDT, Height/Length Dosing, 61, kg, 05/27/21 8:19:00 EDT, Weight Dosing Start Date: 03/14/22 Stop Date: 03/09/23 Status: OrderedStart: 02-97-5577cujg 1 capsule by mouth once daily tamsulosin (Flomax) 0.4 mg 24 hr capsule Take 1 capsule (0.4 mg) by mouth once daily. 10/26/2020 Activetake 1 capsule by mouth every twenty-four hours in the morningtamsulosin (Flomax) 0.4 MG 24 hr capsule Take 0.4 mg by mouth in the morning. ActivetraMADol hydrochloride 50 mg oral tablet (7 sources)Opioid AgonistStart: 76-20-6728ucmz 1 tablet by mouth three times daily [...] Oral Tablet [Gemtesa] (1 source)Start: 04-10-2024 End: 51-16-6052tosf 1 tablet by mouth once dailyGemtesa 75 mg oral tablet 75 mg = 1 tab(s), Oral, Daily, X 30 day(s), # 30 tab(s), Refills(s) 11, Pharmacy: [facility] #[id number], 160, cm, 04/10/24 15:13:00 EDT, Height/Length Dosing, 74, kg, 04/10/24 15:13:00 EDT, Weight Dosing Start Date: 04/10/24 Stop Date: 04/05/25 Status: Orderedvit C,A-Tz-wrodk-lutein-zeaxan (PRESERVISION AREDS- 2) 250-90-40-1 mg capsule (1 source)vit C,H-Bd-yoqus-lutein-zeaxan (PRESERVISION AREDS-2) 250-90-40-1 mg capsule Take 2 tablets by mouth in the morning and at bedtime. Activevit C/E/Zn/coppr/lutein/zeaxan (PRESERVISION AREDS-2 ORAL) (3 sources)vit C/E/Zn/coppr/lutein/zeaxan (PRESERVISION AREDS-2 ORAL) Take by mouth twice a day. Activevit C/E/Zn/coppr/lutein/zeaxan (PRESERVISION AREDS-2 ORAL) Take by mouth twice a day. 0 ActiveVitamin B Complex 1,000 (3 sources)Start: 39-38-2899Firycfi B Complex 1,000 Orally daily May, ActiveVitamin B-12 1000 MCG (2 sources)take 1 tablet by mouth once dailyVitamin B-12 1000 MCG 1 tablet Orally Once a day for 30 day(s) Activevitamin b12 1 mg oral tablet (1 source)Vitamin N33wfoh 1 tablet by mouth every twenty-four hoursVitamin B-12 1000 MCG 1 tablet Orally Once a day for 30 day(s) Activevitamins A,C,C-kbsb-fyynud (1 source)Start: 89-54-6532qbpgjxlx A,C,L-syyv-oukzfs Active PO August 19, 2024 12:00amZyrtec Hives Relief 10 MG (3 sources)take 1 tablet by mouth once dailyZyrtec Hives Relief 10 MG 1 tablet Orally Once a day for 30 day(s) Active Completed/Discontinued Medications MedicationDrug Class(es)DatesSig (Normalized)Sig (Original)acetaminophen 325 mg oral tablet (4 sources)Start: 06-18-2023 End: 82-58-0022vbotobxjgzahh (TYLENOL) tablet 650 mgtake 2 tablets by mouth every six hours as needed for painacetaminophen (TYLENOL EXTRA STRENGTH) 500 mg tablet Take 2 tablets (1,000 mg total) by mouth every6 (six) hours as needed for pain. Activeacetaminophen 325 mg / oxyCODONE hydrochloride 5 mg oral tablet (8 sources)Opioid AgonistStart: 04-24-2018 End: 45-31-5121vbwj 1 tablet by mouth every four to six hours as needed for pain Oxycodone-Acetaminophen 5-325 mg tablet Discontinued 1 TAB PO EVERY 4-6 HOURS as needed for pain 20July 2017April 27, 2018 11:00pm April 28, 2018 11:01pmStart: 79-93-6423pnjs 2 tablets by mouth every four hours as needed for painOxycodone-Acetaminophen (Percocet) 5-325 mg tablet Active 2 TAB PO Q4H as needed for pain April 17, 2018ascorbic acid 226 mg / beta carotene 90734 unt / cuprous oxide 0.8 mg / dl-alpha tocopheryl qppalux172 unt / zinc oxide 34.8 mg oral capsule (11 sources)Vitamin Ctake 2 capsules by mouth twice dailyPreserVision AREDS Oral Capsule TAKE 2 CAPSULE Twice daily Quantity: 0 Refills: 0 Ordered: 17-Aug-2021 DO Activecarvedilol 6.25 mg oral tablet (9 sources)alpha-Adrenergic Boom, beta-Adrenergic BlockerStart: 11-03-2020 Carvedilol 6.25 MG Oral Tablet Quantity: 180 Refills: 0 Ordered: 03-Nov-2020 DO Start : 03-Nov-2020 CompleteStart: 04-17-2018 End: 59-96-8411tmrq 1 tablet by mouth twice dailyCarvedilol 25 mg tablet Discontinued 25 MG PO Twice daily April 16, 2018 11:00pm November 01, 2022 10:47amtake 1 tablet by mouth every twelve hoursCarvedilol 12.5 MG 1 tablet with food Orally Twice a day for 30 day(s) Activecephalexin 500 mg oral capsule (4 sources)Cephalosporin AntibacterialStart: 04-17-2018 End: 47-15-0817hohl 1 capsule by mouth twice dailyCephalexin (Keflex) 500 mg capsule Discontinued 500 MG PO Twice daily 14 7 April 16, 2018 11:00pm April 22, 2018 11:00pm April 23, 2018 11:01pmcevimeline 30 mg oral capsule (20 sources)Cholinergic Receptor AgonistStart: 11-03-2020 End: 80-67-0040secz 1 capsule by mouth three times dailycevimeline (EVOXAC) 30 mg capsule Indications: Xerostomia Take 1 capsule (30 mg total) by mouth 3 (t hree) times a day. 270 capsule 4 02/14/2024 02/29/2024 Discontinued (Duplicate Listing)Start: 43-89-8609xfow 1 mg by mouth three times dailycevimeline See Instructions, mg Oral TID, Refills(s) 0 Start Date: 10/27/19 Status: Ordered Start: 04-17-2018 End: 61-57-2051dysarrouag (EVOXAC) 30 mg capsule Indications: Xerostomia TAKE 1 CAPSULE 4 TIMES DAILY 360 capsule 3 08/17/2022 01/17/2024 Discontinued (Reorder) take 25 mg by mouth three times dailyCEVIMELINE HCL PO Take 25 mg by mouth 3 times daily 0 ActivedimenhyDRINATE 50 mg oral tablet (1 source)Start: 06-18-2023 End: 35-10-9506mzhicjwAYOEVVQ (DRAMAMINE) tablet 50 mgStart: 06-18-2023 End: 71-26-3983lzzfqqzQEDSYXG (DRAMAMINE) tablet 50 mgdoxycycline hyclate 100 mg oral tablet (1 source)Tetracycline-class DrugStart: 34-13-2396olqd 1 tablet by mouth twice daily, then take 1 tablet by mouth once dailyDoxycycline Hyclate 100 MG Oral Tablet take 1 tablet by mouth twice a day for 14 days then 1 tabletonce daily for 14 days Quantity: 42 Refills: 0 Ordered: 18-Oct-2020 DO Start : 18-Oct-2020 Completefamotidine 20 mg oral tablet (3 sources)Histamine-2 Receptor AntagonistStart: 10-04-2022 End: 99-05-4428wzkb 1 tablet by mouth in the morning, [...] fentaNYL 0.05 mg/ml injection (2 sources)Opioid AgonistStart: 48-68-870164 mcg, IntraVENous, EVERY 5 MIN PRN, 2 [...] 100 mg oral tablet (1 source)Azole AntifungalStart: 70-54-6005kxqh 1 tablet by mouth once daily Fluconazole 100 MG Oral Tablet take 1 tablet by mouth once daily Quantity: 10 Refills: 0 Ordered: 17-Nov-2020 DO Start : 17-Nov-2020 Completehydrocortisone 10 mg/ml / neomycin 3.5 mg/ml / polymyxin b 62626 unt/ml ophthalmic suspension (3 sources)Aminoglycoside Antibacterial, Polymyxin-class Antibacterial, CorticosteroidStart: 09-15-4529akac 2 drop(s) into the eye(s) four times daily Xehztsjp-Asnqsowep-ZU 3.5-63678-8 Ophthalmic Suspension instill 2 drops INTO AFFECTED EYE four times a day Quantity: 8 Refills: 0 Ordered: 14-Jun-2021 DO Start : 13-Jun-2021 ActivelevoFLOXacin 750 mg oral tablet (1 source)Quinolone AntimicrobialStart: 77-72-4195uahb 1 tablet by mouth once dailylevoFLOXacin 750 [...] oral capsule (4 sources)Nitrofuran AntibacterialStart: 04-24-2018 End: 66-59-9232qhwc 1 capsule by mouth twice daily at mealtimeNitrofurantoin Monohyd/M-Cryst (Macrobid) 100 mg capsule Discontinued 100 MG PO Twice daily April 23, 2018 11:00pm November 01, 2022 10:47am must administer with a meal/foodoxyCODONE hydrochloride 5 mg oral tablet (1 source)Opioid AgonistStart: 06-18-2023 End: 98-69-0429xvvn 1 dose by mouth once5 mg, Oral, ONCE PRN, 1 dose, Starting on Sun06/18/23 at 1449, Until Sun06/18/23 at 1505, Pain Moderate (4-6), Pain Severe (7-10) PHASE II PACU onlypredniSONE 10 mg oral tablet (1 source)Start: 12-01-5938kbcb 5 tablets by mouth once daily, then take 4 tablets by mouth once dailypredniSONE 10 MG Oral Tablet take 5 tablets by mouth once daily X2 DAYS, 4 tablets daily X2 DA... (REFER TO PRESCRIPTION NOTES). Quantity: 30 Refills: 0 Ordered: 18-Oct-2020 DO Start : 18-Oct-2020 Mmjzmuqk05 hr ranolazine 500 mg extended release oral tablet (7 sources)Anti-anginalStart: 04-17-2018 End: 95-57-3526voli 1 tablet by mouth twice dailyRanolazine 500 [...] for 30 day(s) Not-TakingVersabase Cream (1 source)Start: 08-89-3100Vdkyhihxu Cream Quantity: 15 Refills: 0 Ordered: 07-Sep-2020 DO Start : 07-Sep-2020 Complete Problems Active Problems Problem ClassificationProblemDateDocumented DateEpisodic/ChronicAbdominal pain (16 sources)Abdominal pain; Translations: [Unspecified abdominal pain]Onset: 88-68-5819FncpvtznCphhi myocardial infarction (3 sources)Acute myocardial infarction; Translations: [Acute myocardial infarction, unspecified]Onset: 413651-52-8854ClyrhtiQghrguy tract disease (4 sources)Choledochal cyst; Translations: [Other specified diseases of biliary tract]ChronicCalculus of urinary tract (12 sources)Kidney stone; Translations: [Calculus of kidney]Onset: 06-02-2022 EpisodicCardiac and circulatory congenital anomalies (14 sources)Ventricular septal defect; Translations: [Ventricular septal defect] Onset: 280268-55-1057UekmvnwZalixzi dysrhythmias (14 sources)Paroxysmal supraventricular tachycardia; Translations: [Paroxysmal supraventricular tachycardia]Onset: 720188-67-5972BxyrpaiHqzzdfptlhk and hemorrhagic disorders (3 sources)Disorder of hemostatic system; Translations: [Coagulation defect, unspecified]Onset: 161821-40-6674QsvhdudUivaedglkjxx of device; implant or graft (4 sources)Arteriosclerosis of coronary artery bypass graft; Translations: [Atherosclerosis of coronary arterybypass graft(s) without angina pectoris] Onset: 904270-24-6288PlaraxhBkiieklz atherosclerosis and other heart disease (20 sources)Coronary atherosclerosis; Translations: [Coronary atherosclerosis of [place] coronary artery]Onset: 76-53-5342WkqkkguQxnkbawm atherosclerosis and other heart disease (7 sources)Patient post percutaneous transluminal coronary angioplasty; Translations: [Coronary angioplasty status]Onset: 334593-75-8038Umzorgzf Diabetes mellitus without complication (3 sources)Diabetes mellitus; Translations: [Type 2 diabetes mellitus without complications]Onset: 559387-42-6388CnkmfnoQhfahflc mellitus without complication (1 source)Diabetes mellitus without complicationOnset: 49-27-8291Aqkqxeoas of lipid metabolism (20 sources)Hyperlipidemia; Translations: [Other and unspecified hyperlipidemia] Onset: 939696-91-0337TyfnhnnZqfnswsnog disorders (3 sources)Gastroesophageal reflux disease; Translations: [Gastro-esophageal reflux disease without esophagitis]Onset: 473400-81-8246PopmfzeFbfqdqzxq hypertension (20 sources)Benign essential hypertension; Translations: [Benign essential hypertension]Onset: 277658-18-1953JauhbgrYscqhmchohbkw symptoms and ill- defined conditions (5 sources)Mixed incontinence; Translations: [Incontinence]Onset: 06-02-2022 ChronicGenitourinary symptoms and ill-defined conditions (2 sources)Genitourinary tract problem; Translations: [Other symptoms and signs involving the genitourinary system]Onset: 36-00-9456VjbdgiaaCauhzhdrlilj; infection of eye (except that caused by tuberculosis or sexually transmitteddisease) (3 sources)Chronic allergic conjunctivitis; Translations: [Other chronic allergic conjunctivitis]Onset: 130155-78-4263MnnrmmkIgacuzlmen disorders (2 sources)Postmenopausal bleeding; Translations: [Postmenopausal bleeding] Onset: 158207-60-0428SputlxeSgayibsbuwn chest pain (3 sources)Atypical chest pain; Translations: [Other chest pain]Onset: 256796-39-4603HeesjdboDtpuz aftercare (1 source)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; Translations: [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 CURRENT USE OF ASPIRIN]Onset: 32-79-2408BqvlvaivLzbcc aftercare (1 source)Other retirement (current) drug therapy; Translations: [OTH 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 CURRENT DRUG THERAPY]Onset: 49-43-4880YmxwclpbGddqc and ill-defined heart disease (3 sources)Heart disease; Translations: [Heart disease, unspecified]Onset: 377004-45-2840KpnkndrTfaoz connective tissue disease (6 sources)Tendonitis of right wrist; Translations: [Other enthesopathies, not elsewhere classified]96-09-1614AbuqqlamYrjnd connective tissue disease (4 sources)Muscle weakness of upper limb; Translations: [Other symptoms and signs involving the musculoskeletal system]82-55-0777CekdkkpoIwrqn connective tissue disease (4 sources)Pain in right arm; Translations: [Pain in right arm]05-15-2025 EpisodicOther diseases of bladder and urethra (2 sources)Detrusor overactivity; Translations: [Overactive bladder]Onset: 64-81-3430HcbdxnsFnjan diseases of bladder and urethra (2 sources)Overactive fmxgdmo22-58-8835TqtagdiWjkyz diseases of bladder and urethra (2 sources)Pain in nibswfw47-00-7428VipbawjoUrkpe gastrointestinal disorders (1 source)Intestinal malabsorption, unspecified; Translations: [INTESTINAL MALABSORPTION UNS]Onset: 90-01-5016StlefpcMkkop gastrointestinal disorders (2 sources)Bariatric surgery status; Translations: [BARIATRIC SURGERY STATUS] Onset: 67-38-2538HdhtnzzaAkphb gastrointestinal disorders (3 sources)Constipation; Translations: [Constipation, unspecified]EpisodicOther gastrointestinal disorders (1 source)Constipation, unspecifiedEpisodicOther liver diseases (3 sources)Elevated liver enzymes level; Translations: [Abnormal levels of other serum enzymes]EpisodicOther liver diseases (1 source)Abnormal levels of other serum enzymesEpisodicOther nervous system disorders (4 sources)Ulnar neuropathy of right arm; Translations: [Lesion of ulnar nerve, right upper limb]82-31-9999SeztfxrFhdne nervous system disorders (1 source)Carpal tunnel syndrome of left wrist; Translations: [Carpal tunnel syndrome, left upper limb]99-09-4307UtdaubuQewis nervous system disorders (5 sources)Numbness; Translations: [Anesthesia of skin]81-91-7039QfusemejCxbki nervous system disorders (1 source)Paresthesia; Translations: [Paresthesia of skin]73-41-3706Qppngugg Other non-traumatic joint disorders (2 sources)Pain in wrist; Translations: [Pain in right wrist]01-92-2020Iivuebyd Other non-traumatic joint disorders (4 sources)Pain of right wrist; Translations: [Pain in right wrist]05-15-2025 EpisodicOther non-traumatic joint disorders (2 sources)Chronic pain of right upper limb; Translations: [Pain in right wrist] 09-78-4458BjongzcvWhufs nutritional; endocrine; and metabolic disorders (1 source)Hypervitaminosis D; Translations: [HYPERVITAMINOSIS D]Onset: 72-37-4013XaefpgqBwdni nutritional; endocrine; and metabolic disorders (2 sources)Body mass index 30+ - obesity; Translations: [Body mass index (BMI) 30.0-30.9, adult]Onset: 234751-88-1192JoycqauQzvja nutritional; endocrine; and metabolic disorders (2 sources)Body mass index (BMI) 30.0-30.9, adult; Translations: [Body mass index (BMI) 30.0-30.9, adult]Onset: 39-70-8792GjmmwsrGlypl nutritional; endocrine; and metabolic disorders (11 sources)Overweight in adulthood with body mass index of 25 or more but less than 30; Translations: [Overweight]EpisodicOther screening for suspected conditions (not mental disorders or infectious disease) (6 sources)Other specified abnormal findings of blood chemistry; Translations: [Patient encounter status]Onset: 95-64-6596SlptctmvXraqj skin disorders (1 source)Epidermoid cyst; Translations: [Epidermal cyst]35-19-6714FlovrybtFfblg skin disorders (1 source)Epidermal cyst; Translations: [Epidermal cyst]Onset: 06-18-2023 EpisodicOther upper respiratory disease (1 source)Allergic rhinitis, unspecified; Translations: [Allergic rhinitis, unspecified]Onset: 56-90-3801TqcsfmqXcnux upper respiratory disease (1 source)Allergic rhinitis; Translations: [Allergic rhinitis, unspecified] 19-48-6004EjalktnQcegrwps codes; unclassified (4 sources)Other specified health status; Translations: [Other drug allergy] Onset: 952005-27-2621QfolmoxpPdhdselminhn (1 source)Presence of aortocoronary bypass graft / Z95.1(ICD-9)Onset: 08-29-2017 Unclassified (1 source)Athscl heart disease of [place] coronary artery w/o ang pctrs / I25.10(ICD-9)Onset: 52-61-0727Kmrrcbajyctg (1 source)Pure hypercholesterolemia, unspecified / E78.00(ICD-9)Onset: 02-61-7709Rgiuifkxmzli (2 sources)Encounter for preprocedural cardiovascular examination / Z01.810(ICD-9)Onset: 90-72-0013Tycoypxhpduf (1 source)Old myocardial infarction / I25.2(ICD-9)Onset: 39-46-0221Fpocwztismig (1 source)Coronary angioplasty status / Z98.61(ICD-9)Onset: 08-29-2017 Unclassified (1 source)Cardiomyopathy, unspecified / I42.9(ICD-9)Onset: 08-29-2017 Unclassified (1 source)Family history of diseases of the ms sys and connective tiss / Z82.69(ICD-9)Onset: 47-18-8110Fdwbcjhmehrm (1 source)Family hx of ischem heart dis and oth dis of the circ sys / Z82.49(ICD-9)Onset: 15-91-2104Hecaiwocdpjh (1 source)Patient encounter status; Translations: [Well female exam with routine gynecological exam]Unclassified (4 sources)Drug therapy krfanoa81-85-2950Umqyabbbguuv (4 sources)Finding of sensation of uogrouw89-54-9565Xojikvldavro (1 source)CONTACT W/AND (SUSP) EXPOS COVID-19; Translations: [CONTACT W/AND (SUSP) EXPOS COVID-19]Onset: 77-26-9215Cjeigivgfytb (1 source)Med RefillOnset: 89-35-4176Pzyaakonduma (2 sources)Chronic pain of right upper hwdr51-77-6486 Past or Other Problems Problem ClassificationProblemDateDocumented DateEpisodic/ChronicCancer of colon (2 sources)Personal history of other malignant neoplasm of large intestine; Translations: [Personal history ofother malignant neoplasm of large intestine] Onset: 76-01-4654FeuabdldQxoixdkd of mouth; excluding dental (6 sources)Disturbances of salivary secretion; Translations: [Xerostomia]Onset: 873402-78-4949VqvzxyceBkbw disorders (3 sources)Mood disordersOnset: 030631-91-3881Znsvq aftercare (2 sources)Encounter for follow-up examination after completed treatment for malignant neoplasm; Translations:[Encounter for follow-up examination after completed treatment for malignant neoplasm]Onset: 81-84-4449KmjvyqfjSbwgn connective tissue disease (1 source)Pain in left arm; Translations: [Pain in left arm]Onset: 10-11-2024 EpisodicOther connective tissue disease (1 source)Pain in right arm; Translations: [Pain in right arm]Onset: 10-11-2024 EpisodicOther diseases of kidney and ureters (3 sources)Kidney disease; Translations: [Disorder of kidney and ureter, unspecified]Onset: 629003-02-8472WysguirtFoaje upper respiratory disease (1 source)Other specified disorders of nose and nasal sinuses; Translations: [Other specified disorders of nose and nasal sinuses]Onset: 07-46-3559Rllyibsw Other upper respiratory disease (4 sources)Nasal mucosa dry; Translations: [Other specified disorders of nose and nasal sinuses]Onset: 038731-53-5314YepfuuygDnzarpznxf disorders (not diabetes) (15 sources)Idiopathic acute pancreatitis without necrosis or infection; Translations: [Acute pancreatitis without necrosis or infection, unspecified] Onset: 91-96-7810PgnkavxnBzvtbblpsxbz (1 source)Encounter for preprocedural cardiovascular examination; Translations: [...] to call back and schedule. pt is scheduledRiverview Health InstituteMR WRIST RIGHT WO IV CONTRASTon [id number] WRIST RIGHT WO IV CONTRASTEXAM/TECHNIQUE: MR WRIST [...] Order Comment: MRI RT wrist w/o at [facility]. Orbits if needed. Please contact patient to scheduleOrders Onlyon [id number] [id number] AngelikaJose Alberto 1965 Date Provider Department Center 05/19/2025 [id number]-JW-FUPQXAANALISA YOO [facility] Family History Problem Relation Age of Onset Hyperlipidemia Mother Hyperlipidemia Father Hyperlipidemia Brother Heart attack Brother Family Status - Relation Status Age at Mother Father Brother BrotherNormalUniversveterans health administration of [facility] CampusTelephoneon 05-19-2025 [id number] AngelikaJose Alberto 1965 Provider Department Center 05/19/2025 [facility] Family History Problem Relation Age of Onset Hyperlipidemia Mother Hyperlipidemia Father Hyperlipidemia Brother Heart attack Brother Family Status - Relation Status Age at Mother Father Brother BrotherNoLevine Children's Hospital of [facility] Sierra CampusXR Wrist - right 2 Views on 38-87-1938Mqsmy result: AP and Lateral Right Wrist: Bone Structure: No acute fracture or dislocation Joint Spaces: The carpal joint spaces are well preserved, minimal joint space narrowing mostly radial with subchondral sclerosis. Scapho-lunate interval within normal limit. Soft tissue: No swelling or calcification Impression: No acute bony process Right Wrist with minimal degenerative changes.[facility] CenterRadiology Study observation (narrative) [address] [phone] spoke with Betsy the doctor of pharmacy and clarify some information and that is what was needed so hopefully soon be able to get soon.NormalUnHolzer HospitalTephoneon [id number] AngelikaJose Alberto 1965 Date Provider Department Center 05/14/2025 71981-UM-FAGFMAANALISA YOO [facility] Family History Problem Relation Age of Onset Hyperlipidemia Mother Hyperlipidemia Father Hyperlipidemia Brother Heart attack Brother Family Status - Relation Status Age at Mother Father Brother BrotherNormalUniClinton Memorial [id number] AngelikaJose Alberto 1965 Date Provider Department Center 05/14/2025 [facility] Family History Problem Relation Age of Onset Hyperlipidemia Mother Hyperlipidemia Father Hyperlipidemia Brother Heart attack Brother Family Status - Relation Status Age at Mother Father Brother BrotherNormalUniversity [facility]29on Addended by: ANALISA WATSON on: 05/14/2025 03:06 PM Modules accepted: OrdersNormalUniversMemorial Health System [facility]29Addended by: ANALISA WATSON on: 05/12/2025 05:18 PM Modules accepted: OrdersChristian HospitalalUniClinton Memorial HospitalFollow-Upon [id number] Jose Alberto Saleem 1965 Date Provider Department [place] 05/08/2025 CHAUNCEY CESPEDES [facility] Family History Problem Relation Age of Onset Hyperlipidemia Mother Hyperlipidemia Father Hyperlipidemia Brother Heart attack Brother Family Status - Relation Status Age at Mother Father Brother Brother Level of Service:82596 [place] OFFICE/OUTPATIENT ESTABLISHED MOD MDM 30 MIN () Reason for Visit and Comments: Follow-up [761183][facility] HospitalI called the patient and discussed the [...] and Dr. Kimble is aware of the plan.[facility] HospitalTelephoneon [id number] Jose Alberto Saleem 1965 Date Provider Department [place] 03/25/2025 SANDRA BURRIS [facility] Family History Problem Relation Age of Onset Hyperlipidemia Mother Hyperlipidemia Father Hyperlipidemia Brother Heart attack Brother Family Status - Relation Status Age at Mother Father Brother BrotherNormalUniClinton Memorial Hospital3603/25/25@1020 Left patient a message that she will [...] or should she follow up in the clinic.[facility] HospitalTephone [id number] Jose Alberto Saleem 1965 Date Provider Department Center 03/20/2025 [facility] Family History Problem Relation Age of Onset Hyperlipidemia Mother Hyperlipidemia Father Hyperlipidemia Brother Heart attack Brother Family Status - Relation Status Age at Mother Father Brother BrotherNormalUni[address] 60-22-337507Koozfl and discussed with jay pt the HIDA and MRCP in details. ----- Message from Gisela sent at 02/11/2025 3:15 PM EDT ----- Patient calling for results and follow up plan. Office visit with you and Dr. Kimble 01/09/25NoPauletteversMemorial Health System Marietta Memorial Hospital36----- Message from Gisela sent at 02/11/2025 3:15 PM EDT ----- Patient calling for results and follow up plan. Office visit with you and Dr. Kimble [facility]25[facility] [id number] Jose Alberto Saleem 1965 Date Provider Department Center 02/18/2025 SANDRA BURRIS [facility] Pavi Family History Problem Relation Age of Onset Hyperlipidemia Mother Hyperlipidemia Father Hyperlipidemia Brother Heart attack Brother Family Status - Relation Status Age at Mother Father Brother BrotherNormalUniClinton Memorial Hospital36on [phone] called me to get results of HIDA scan and then what to do as follow up. I do see the HIDA scan results from 01/30/25 @ [facility] and they are normal will forward to Dr. Sharma on of our [facility] [place] to see what further he would like to do.NormalUnHolzer HospitalTelephoneon 20-79-1165Glhhyqxci [id number] Jose Alberto Saleem 1965 F Date Provider Department Center 02/11/2025 GISELA OMER [facility] Family History Problem Relation Age of Onset Hyperlipidemia Mother Hyperlipidemia Father Hyperlipidemia Brother Heart attack Brother Family Status - Relation Status Age at Mother Father Brother BrotherNormCincinnati VA Medical CenterNM HIDA W EJECTION FRACTIONon 61-80-7743BG HIDA W EJECTION FRACTIONCLINICAL INFORMATION: Sphincter of [...] signed: Viet Prado M.D.. Not FrankdtJulio Interpretation CodeUnHolzer Hospital Elastase.pancreatic (Stl) [Mass/Mass]on 23-71-5439Zivypriwfn Elastase, F174 mcg/gLow>200 (Normal)[facility] City HospitalComment on above:Result Comment: NOTE Interpretation: Borderline (100-200 mcg/g); Consistent with slight to moderate pancreatic insufficiency Test Performed by: [facility] [address] [place] [address] Delineator: Andra Flores Ph.D.; CLIA# [id number] By: #### [id number]- [id number] #### [facility] ([id number]) [address] [place] [address] FLOOR [place], [place] [id number] 80-00-926681Yigyrfip by: CHAUNCEY KIMBLE on: 01/10/2025 08:32 AM Modules accepted: Level of ServiceNormalUniversMemorial Health System [facility] Follow-Upon [id number] Jose Alberto Saleem 1965 Date Provider Department Center 01/09/2025 375-CHAUNCEY KIMBLE [facility] Family History Problem Relation Age of Onset Hyperlipidemia Mother Hyperlipidemia Father Hyperlipidemia Brother Heart attack Brother Family Status - Relation Status Age at Mother Father Brother Brother Level of Service:57291 [place] OFFICE/OUTPATIENT ESTABLISHED MOD MDM 30 MIN () Reason for Visit and Comments: Follow-up [266252] - MRI follow up and seen at [facility] and in hospital for 1 day. Will get records. Enzo helped tremendously this time and she came home with it, She just complains of fatigue. PCP Ordered sleep studyNormalUniversMemorial Health System [facility] Hospital36on /01/23@1548 Returned a phone call to patient. She had wanted to follow up with Dr. Chauncey Kimble to let him know she is currently in the ER at [facility] dx with pancreatitis. She had an MRCP on 12/31/24 and if any other lab work needs done to call the Hospital.NormalUnHolzer HospitalTelephoneon [id number] Jose Alberto Saleem 1965 Provider Department Center 01/02/2025 GISELA OMER [facility] Family History Problem Relation Age of Onset Hyperlipidemia Mother Hyperlipidemia Father Hyperlipidemia Brother Heart attack Brother Family Status - Relation Status Age at Mother Father Brother BrotherNormalUniversMemorial Health System Marietta Memorial HospitalMR ABDOMEN W AND WO CONTRAST MRCPon 71-26-9948DW ABDOMEN W AND WO CONTRAST MRCPMRI ABDOMEN [...] signed: Figueroa Landeros MD. Not VldtdInvalid Interpretation CodeUnHolzer HospitalFollow-Up on [id number] Jose Alberto Saleem 1965 F Date Provider Department Center 12/12/2024 CHAUNCEY CESPEDES RUST GI RUST Family History Problem Relation Age of Onset Hyperlipidemia Mother Hyperlipidemia Father Hyperlipidemia Brother Heart attack Brother Family Status - Relation Status Age at Mother Father Brother Brother Level of Service:[address] [place] OFFICE/OUTPATIENT NEW MODERATE MDM 45 MINUTES (GC) Reason for Visit and Comments: Pancreatitis [320528] - Pain when she stresses or when she eats. She has trouble with losing weight as she always feels bloated and gassy.Normal [facility] HospitalXR Wrist - right 2 Viewson 00-37-5111Lbasetw Result: AP and Lateral Right Wrist: Bone Structure: No acute fracture or dislocation Joint Spaces: The carpal joint spaces are well preserved, mild joint space narrowing and remodeling with subchondral sclerosis distal radius favoring arthritis. , Scapho-lunate interval within normal limit. Soft tissue: No swelling or calcification Impression: No acute bony process Right WristNOAurora Medical Center Radiology Study observation (narrative)NOMS HealthcareXR FOREARM RT 2 VWSon 93-51-5672WS FOREARM RT 2 VWSXR FOREARM RT 2 VWS CLINICAL INFORMATION: Right arm pain TECHNIQUE: XR FOREARM RT 2 VWS 2 views right forearm are obtained. There is no acute osseous, articular, or soft tissue abnormality. IMPRESSION: Negative exam. Finalized by Afshin Barrett MD on 10/11/2024 1:59 PMNormalProMedica Kaiser San Leandro Medical CenterECG 12 lead ECGon 77-53-3821CYE 12 lead ECGOHIO [facility] Main [place] [address] [place] [address] Electrocardiograph Report Signed Patient: Jose Alberto Saleem MR#: [id number] 571 : 1965 Acct:[id number] Age/Sex: 59 / F ADM Date: 08/20/24 Loc: Room: [address] [place] [address] Type: DIS IN Attending Dr: Kaiser Quijano [...] abnormality Abnormal ECG Confirmed by Bella Stein ([id number]) on 08/22/2024 11:33:07 PM Referred By: Bella Stein Electronically Signed By: Bella Stein Transcribed By: MUS Signed By Bella Stein MD 4 2333[facility] Physician GroupTroponin I High Sensitivityon 99-31-9598Gwywclvw I High Ixguspisvtp9716.6 pg/mLOff scale high0.0-15.0[facility] Physician GroupComment on above:Result Comment: Critical Result : Called to and read back by: ROB MCDONALD at: 08/22/2024 06:38:37 by:RAMONA PERFORMED BY: [facility] [address] [place] [address] PATHOLOGIST ACUTE CARE OCCUPATIONAL THERAPIST JANA OLMEDO M.D.Performed By: #### HS TROP ####[facility] [address] [place] [address] USABlood Urea Nitrogenon 48-69-1415Zvuh nitrogen [Mass/Vol]14 mg/dLNormal7-25The [facility] Physician GroupComment on above:Performed By: #### CREAT, BUN, PP, CBC, LYTES ####[address] [place] [address] [facility] Coagulation Profileon 52-46-3529zSXX Coag (Bld) [Time]35.9 zOnrqmd14.1-36.5The [facility] Physician GroupComment on above:Result Comment: A hematocrit value greater than 55% may lead to inaccurate results in coagulation testing. Patients having hematocrit values >55% require a special collection tube for coagulation studies. Please contact the laboratory at [phone] for redraw instructions. PERFORMED BY: [facility] [address] [place] [address] PATHOLOGIST ACUTE CARE OCCUPATIONAL THERAPIST JANA OLMEDO M.D.Performed By: #### CREAT, BUN, PP, CBC, LYTES ####[address] [place] [address] [facility] T[facility]AT[facility] CENTERINR Coag (PPP) [Relative time]1.1 {INR}NormalThe Department Of Veterans Affairs Medical Center-LebanonComment on above:Result Comment: INR Therapeutic Range A) [...] By: #### CREAT, BUN, PP, CBC, LYTES ####[address] [place] [address] USAPT Coag (PPP) [Time]12.2 sNormal9.0-12.9[facility] Physician Och Regional Medical CenterComment on above:Result Comment: A hematocrit value greater than 55% may lead to inaccurate results in coagulation testing. Patients having hematocrit values >55% require a special collection tube for coagulation studies. Please contact the laboratory at [phone] for redraw instructions.Performed By: #### CREAT, BUN, PP, CBC, LYTES ####[address] StreetComplete Blood Count Auto Diffon 21-87-2667Dvbokwkyh (Bld) [#/Vol]0.0 10*3/uLNormal0.0-0.2The [facility] Physician GroupComment on above:Result Comment: PERFORMED BY: [facility] [address] HOSPITALAd[place] [address] PATHOLOGIST ACUTE CARE OCCUPATIONAL THERAPIST JANA OLMEDO M.D.Performed By: #### CREAT, BUN, PP, CBC, LYTES ####[address] Basophils/100 WBC (Bld)0.3 %Normal.The [facility] Physician GroupComment on above:Performed By: #### CREAT, BUN, PP, CBC, LYTES ####[place] [address] USAEosinophils (Bld) [#/Vol]0.2 10*3/uLNormal0.0-0.45The [facility] Physician GroupComment on above:Performed By: #### CREAT, BUN, PP, CBC, LYTES ####[place] [address] USAEosinophils/100 WBC (Bld)3.9 %Normal.The [facility] Physician GroupComment on above:Performed By: #### CREAT, BUN, PP, CBC, LYTES ####[address] Erythrocyte distribution width (RBC) [Ratio]12.7 %Dvktsx21.9-15.3The [facility] Physician GroupComment on above:Performed By: #### CREAT, BUN, PP, CBC, LYTES ####[address] Hematocrit (Bld) [Volume fraction]42.5 %Eintrr53.0-46.4The [facility] Physician GroupComment on above:Performed By: #### CREAT, BUN, PP, CBC, LYTES ####[address] Hemoglobin (Bld) [Mass/Vol]14.6 g/hUDgbnhd32.8-15.4[facility] Comment on above:Performed By: #### CREAT, BUN, PP, CBC, LYTES ####[place] [address] USALymphocytes (Bld) [#/Vol]1.7 10*3/uLNormal1.00-4.8The [facility] Physician GroupComment on above: Performed By: #### CREAT, BUN, PP, CBC, LYTES ####[place] [address] USALymphocytes/100 WBC (Bld)35.0 %Normal. The [facility] Physician GroupComment on above:Performed By: #### CREAT, BUN, PP, CBC, LYTES ####[address] StreetH (RBC) [Entitic mass]30.8 juSkmyye07.7-34.3The [facility] Physician GroupComment on above:Performed By: #### CREAT, BUN, PP, CBC, LYTES ####[address] StreetV (RBC) [Entitic vol]89.8 eIKrymwd01-654Viv [facility] Physician GroupComment on above:Performed By: #### CREAT, BUN, PP, CBC, LYTES ####[place] [address] USAMean Corpuscular HGB Conc34.3 g/zAByuvtf19.0-35.0The [facility] Physician GroupComment on above:Performed By: #### CREAT, BUN, PP, CBC, LYTES ####[place] [address] USAMonocytes (Bld) [#/Vol]0.5 10*3/uLNormal0.0-0.8The [facility] Physician GroupComment on above:Performed By: #### CREAT, BUN, PP, CBC, LYTES ####[place] [address] USAMonocytes/100 WBC (Bld)10.9 %Normal.The [facility] Physician GroupComment on above:Performed By: #### CREAT, BUN, PP, CBC, LYTES ####[place] [address] USANeutrophils (Bld) [#/Vol]2.5 10*3/uLNormal1.8-7.7The [facility] Physician GroupComment on above:Performed By: #### CREAT, BUN, PP, CBC, LYTES ####[place] [address] USANeutrophils/100 WBC (Bld)49.9 %Normal.The [facility] Physician GroupComment on above:Performed By: #### CREAT, BUN, PP, CBC, LYTES ####[place] [address] USANRBC% 0.1 /100{WBC}Normal0-0.5The [facility] Physician GroupComment on above:Performed By: #### CREAT, BUN, PP, CBC, LYTES ####[place] [address] USAPlatelet mean volume (Bld) [Entitic vol]7.7 fL Normal6.3-10.7The [facility] Physician GroupComment on above:Performed By: #### CREAT, BUN, PP, CBC, LYTES ####[place] [address] USAPlatelets (Bld) [#/Vol]172 10*3/iCMcxtab445-611Fnw [facility] Physician GroupComment on above:Performed By: #### CREAT, BUN, PP, CBC, LYTES ####[place] [address] USARBC (Bld) [#/Vol]4.73 10*6/uLNormal3.60-5.00The [facility] Comment on above:Performed By: #### CREAT, BUN, PP, CBC, LYTES ####[place] [id number] USAWBC (Bld) [#/Vol]4.9 10*3/uLNormal3.8-11.6The [facility] Physician GroupComment on above:Performed By: #### CREAT, BUN, PP, CBC, LYTES ####[address] [address] USACreatinineon 26-29-3796Wpcckspurx [Mass/Vol]0.61 mg/dLNormal0.60-1.20The [facility] Physician GroupComment on above:Performed By: #### CREAT, BUN, PP, CBC, LYTES ####[place] [address] USACreatinine Clr Calc Fsrhahzs72.73NormalThe [facility] Physician GroupComment on above:Result Comment: PERFORMED BY: [place] [address] PATHOLOGIST ACUTE CARE OCCUPATIONAL THERAPIST JANA OLMEDO M.D.Performed By: #### CREAT, BUN, PP, CBC, LYTES ####[address] [address] [place] GFR/1.73 sq M.predicted MDRD (S/P/Bld) [Vol rate/Area]mL/min/{1.73_m2}NormalThe [facility] Physician GroupComment on above:Performed By: #### CREAT, BUN, PP, CBC, LYTES ####[address] [address] USAECG 12 lead ECGon 55-40-4355GJD 12 lead ECGOHIO STATE EAST HOSPITAL Main [place] [address] [place] [address] Electrocardiograph Report Signed Patient: Jose Alberto Saleem MR#: [id number] 571 : 1965 Acct:[id number] Age/Sex: 59 / F ADM Date: 08/20/24 Loc: Room: 7H4902-9 Type: DIS IN Attending Dr: Kaiser Quijano [...] abnormality Abnormal ECG Confirmed by Bella Stein ([id number]) on 08/22/2024 11:33:52 PM Referred By: Bella Stein Electronically Signed By: Bella Stein Transcribed By: MUS Signed By Bella Stein MD 4 2333Appleton Municipal HospitalElectrolyteson 83-78-0278Yqylv gap [Moles/Vol]11.0 mmol/LNormal6.0-15.0The [facility] Center-LebanonComment on above:Performed By: #### CREAT, BUN, PP, CBC, LYTES ####[facility] [place] [address] USAChloride [Moles/Vol]105 mmol/L Jeunci99-061Cfe [facility] Center-LebanonComment on above:Performed By: #### CREAT, BUN, PP, CBC, LYTES ####[facility] [place] [address] USACO2 [Moles/Vol]27.9 mmol/AOgsxwr01.0-31.0The [facility] Center-LebanonComment on above:Performed By: #### CREAT, BUN, PP, CBC, LYTES ####[facility] [place] [address] USAPotassium [Moles/Vol]3.9 mmol/LNormal3.5-5.1The [facility] Comment on above:Performed By: #### CREAT, BUN, PP, CBC, LYTES ####[facility] [place] [address] USASodium [Moles/Vol]140 mmol/YLowxzm299-568Uyi [facility] Physician GroupComment on above:Performed By: #### CREAT, BUN, PP, CBC, LYTES ####[facility] [address] [place] [address] USANM lia perf SPECT rest stron 75-48-7613LN lia perf SPECT rest [facility] Main [place] [address] [place] [address] Nuclear Medicine Report Signed Patient: Jose Alberto Saleem MR#: [id number] 571 : 1965 Acct:[id number] Age/Sex: 59 / F ADM Date: 08/18/24 Loc: Room: [address] [place] [address] Type: ADM INOo Attending Dr: Chucky Dunn [...] Bella Stein M.D.08/20/2024 3:56 PM Dictation Location: [place] [address] Transcribed By: [facility] 08/20/24 1556 Dictated By: Bella Stein MD 08/20/24 155 Signed By: 08/20/24 1556NormAdventHealth Tampa Physician CuvxuD1Z with Estimated Average Gluon 65-57-6688Koztcvi [Mass/Vol]117 mg/dLNormalThSaint Alphonsus Eagle Physician GroupComment on above:Result Comment: PERFORMED BY: [place] [address] PATHOLOGIST ACUTE CARE OCCUPATIONAL THERAPIST JANA OLMEDO M.D.Performed By: #### A1C WTH eA, HS TROP ####[facility] [address] [place] [id number] EPBUjH5w (Bld) [Mass fraction]5.7 %High4.3-5.6The [facility] Physician GroupComment on above:Result Comment: Increased risk for diabetes: 5.7 - 6.4 diabetes: >6.4 glycemic control for adults with diabetes: <7.0Performed By: #### A1C WTH eA, HS TROP ####[place] [address] USAECG 12 lead ECGon 33-84-9109RSK 12 lead ECGOHIO STATE EAST HOSPITAL Main [place] [address] [place] [address] Electrocardiograph Report Signed Patient: Jose Alberto Saleem MR#: [id number] 571 : 1965 Acct:[id number] Age/Sex: 59 / F ADM Date: 08/18/24 Loc: Room: [address] [place] [address] Type: ADM INOo Attending Dr: Chucky Dunn [...] abnormality Abnormal ECG Confirmed by Bella Stein ([id number]) on 08/21/2024 12:00:39 AM Referred By: Bella Stein Electronically Signed By: Bella Stein Transcribed By: MUS Signed By Bella Stein MD 4 0000NoSampson Regional Medical Center Physician GroupECG 12 lead ECGOHIO STATE EAST HOSPITAL Main [address] [address] Electrocardiograph Report Signed Patient: Jose Alberto Saleem MR#: [id number] 571 : 1965 Acct:[id number] Age/Sex: 59 / F ADM Date: 08/18/24 Loc: Room: [address] [place] [address] Type: ADM INOo Attending Dr: Chucky Dunn [...] rhythm Leftward axis Confirmed by Bridgett Monreal ([id number]) on 08/20/2024 11:52:24 PM Referred By: Bella Stein Electronically Signed By: Bridgett Monreal Transcribed By: MUS Signed By Bridgett Monreal MD 08/20/24 2352NoSampson Regional Medical Center Physician GroupTroponin I High Sensitivityon 82-48-0714Zivdgkff I High Sensitivity4.6 pg/mLNormal0.0-15.0[facility] Physician O[facility] Regional Medical CenterComment on above:Result Comment: PERFORMED BY: [place] [address] PATHOLOGIST ACUTE CARE OCCUPATIONAL THERAPIST JANA OLMEDO M.D.Performed By: #### A1C WT eA, HS TROP ####[facility] [address] [place] [address] USAX-ray reportOrdered By: Thelma Wick on 18-56-5579Jtveh reportOHIO STATE EAST HOSPITAL Main [address] [address] XRay Report Signed Patient: Jose Alberto Saleem MR#: [id number] : 1965 Acct:[id number] Age/Sex: 59 / F ADM Date: 4 Loc: Room: [address] [place] [address] Type: ADM INOo Attending Dr: Donis Arroyo [...] Thelma Wick M.D.08/19/2024 12:10 AM Dictation Location: [place] [address] Transcribed By: [facility] 08/19/24 001 Dictated By: Thelma Wick MD 08/18/242210 Signed By: 08/19/24 001 [facility] Work Phone: Alanine aminotransferase [Enzymatic activity/volume] in Serum or PlasmaOrdered By: Lynnette Chapman on 61-13-3132QRT [Catalytic activity/Vol]Alanine aminotransferase [Enzymatic activity/volume] in Serum or Plasma7-52[facility] Medical CenterAlbumin [Mass/volume] in Serum or Plasma by Bromocresol green (BCG) dye binding methoOrdered By: Lynnette Chapman on 74-14-7491Augqrlw BCG dye [Mass/Vol]Albumin [Mass/volume] in Serum or Plasma by Bromocresol green (BCG) dye binding metho3.5-5.7FMemorial Health System Marietta Memorial HospitalAlkaline phosphatase [Enzymatic activity/volume] in Serum or PlasmaOrdered By: Lynnette Chapman on 50-02-3090OOD [Catalytic activity/Vol]Alkaline phosphatase [Enzymatic activity/volume] in Serum or Uawmpg16-575FchtcdqwfKettering Health Behavioral Medical CenterAspartate aminotransferase [Enzymatic activity/volume] in Serum or Plasma Ordered By: Lynnette Chapman on 20-67-7577URE [Catalytic activity/Vol]Aspartate aminotransferase [Enzymatic activity/volume] in Serum or Doajie62-78GpjfsxkajKettering Health Behavioral Medical CenterB-Type Natriuretic Peptideon 59-90-0149Tlztohuohkn peptide B (Bld) [Mass/Vol]31.0 pg/mLNormal5-100The [facility] Group Comment on above:Result Comment: PERFORMED BY: [place] [address] PATHOLOGIST ACUTE CARE OCCUPATIONAL THERAPIST JANA OLMEDO M.D.Performed By: #### HS TROP, LIPASE, PT, BMP, HEPATIC, CK, CBC, BNP ####[address] [place] [address] USABasic Metabolic Panelon 64-80-1929Czpef gap [Moles/Vol]10.7 mmol/L Normal6.0-15.0The [facility] Physician GroupComment on above:Performed By: #### HS TROP, LIPASE, PT, BMP, HEPATIC, CK, CBC, BNP #### [facility] [address] [place] [address] USAPerformed By: #### HS TROP, LIPASE, PT, BMP, HEPATIC, CK, CBC, BNP ####[place] [address] USACalcium [Mass/Vol]10.1 mg/dLNormal8.6-10.3The [facility] Comment on above:Performed By: #### HS TROP, LIPASE, PT, BMP, HEPATIC, CK, CBC, BNP #### [facility] [address] [place] [address] USAPerformed By: #### HS TROP, LIPASE, PT, BMP, HEPATIC, CK, CBC, BNP ####[place] [address] USAChloride [Moles/Vol]102 mmol/EUtwlsb78-569Qdj [facility] Comment on above:Performed By: #### HS TROP, LIPASE, PT, BMP, HEPATIC, CK, CBC, BNP #### [place] [address] USAPerformed By: #### HS TROP, LIPASE, PT, BMP, HEPATIC, CK, CBC, BNP ####[place] [address] USACO2 [Moles/Vol]28.4 mmol/CBecltb99.0-31.0The [facility] Physician GroupComment on above:Performed By: #### HS TROP, LIPASE, PT, BMP, HEPATIC, CK, CBC, BNP #### [place] [address] USAPerformed By: #### HS TROP, LIPASE, PT, BMP, HEPATIC, CK, CBC, BNP ####[place] [address] USACreatinine [Mass/Vol]0.62 mg/dLNormal0.60-1.20The [facility] Comment on above:Performed By: #### HS TROP, LIPASE, PT, BMP, HEPATIC, CK, CBC, BNP #### [place] [address] USAPerformed By: #### HS TROP, LIPASE, PT, BMP, HEPATIC, CK, CBC, BNP ####[place] [address] USACreatinine Clr Calc Mobavknm39.72NormalThe [facility] Physician GroupComment on above:Result Comment: PERFORMED BY: [place] [address] PATHOLOGIST ACUTE CARE OCCUPATIONAL THERAPIST JANA OLMEDO M.D.Performed By: #### HS TROP, LIPASE, PT, BMP, HEPATIC, CK, CBC, BNP #### [place] [address] USAPerformed By: #### HS TROP, LIPASE, PT, BMP, HEPATIC, CK, CBC, BNP ####[place] [address] USAGFR/1.73 sq M.predicted MDRD (S/P/Bld) [Vol rate/Area]mL/min/{1.73_m2}Normal The [facility] Physician GroupComment on above:Performed By: #### HS TROP, LIPASE, PT, BMP, HEPATIC, CK, CBC, BNP #### [place] [address] USAPerformed By: #### HS TROP, LIPASE, PT, BMP, HEPATIC, CK, CBC, BNP ####[place] [address] USAGlucose [Mass/Vol]94 mg/jTJaiiys25-713Qii [facility] Physician GroupComment on above:Result Comment: Random Glucose Reference Range is dependent on time and content of last meal. Glucose of more than 200 mg/dL in a nonstressed, ambulatory subject supports the diagnosis of Diabetes Mellitus. ADA recommended reference rangePerformed By: #### HS TROP, LIPASE, PT, BMP, HEPATIC, CK, CBC, BNP #### [place] [address] USAPerformed By: #### HS TROP, LIPASE, PT, BMP, HEPATIC, CK, CBC, BNP ####[place] [address] USAPotassium [Moles/Vol]4.1 mmol/LNormal3.5-5.1The [facility] Comment on above:Performed By: #### HS TROP, LIPASE, PT, BMP, HEPATIC, CK, CBC, BNP #### [place] [address] USAPerformed By: #### HS TROP, LIPASE, PT, BMP, HEPATIC, CK, CBC, BNP ####[place] [address] USASodium [Moles/Vol]137 mmol/KXtpztu293-074Msr [facility] Physician GroupComment on above:Performed By: #### HS TROP, LIPASE, PT, BMP, HEPATIC, CK, CBC, BNP #### [place] [address] USAPerformed By: #### HS TROP, LIPASE, PT, BMP, HEPATIC, CK, CBC, BNP ####[place] [address] USAUrea nitrogen [Mass/Vol]22 mg/dLNormal7-25The [facility] Comment on above:Performed By: #### HS TROP, LIPASE, PT, BMP, HEPATIC, CK, CBC, BNP #### [facility] [address] [place] [address] USAPerformed By: #### HS TROP, LIPASE, PT, BMP, HEPATIC, CK, CBC, BNP ####[facility] [address] [place] [address] USABasophils Auto (Bld) [#/Vol]Ordered By: Lynnette Chapman on 86-46-1779Cnwfgjytd (Bld) [#/Vol]Automated basophil count0.0-0.2FMemorial Health System Marietta Memorial Hospital Basophils/100 WBC Auto (Bld)Ordered By: Lynnette Chapman on 08-18-2024 Basophils/100 WBC (Bld)Automated basophil %.[facility] Bilirubin.direct [Mass/volume] in Serum or PlasmaOrdered By: Lynnette Chapman on 58-42-3500Xdzgwobhp.direct [Mass/Vol]Bilirubin.direct [Mass/volume] in Serum or Plasma0.03-0.18FMemorial Health System Marietta Memorial HospitalBilirubin.total [Mass/volume] in Serum or PlasmaOrdered By: Lynnette Chapman on 76-23-3821Jdqwdpvtb [Mass/Vol] Bilirubin.total [Mass/volume] in Serum or Plasma0.3-1.0[facility] Medical CenterCalcium [Mass/volume] in Serum or PlasmaOrdered By: Lynnette Chapman on 07-79-0655Rcocopo [Mass/Vol]Calcium [Mass/volume] in Serum or Plasma8.6-10.3 [facility] Medical CenterCarbon dioxide, total [Moles/volume] in Serum or PlasmaOrdered By: Lynnette Chapman on 27-01-2292YK8 [Moles/Vol]Carbon dioxide, total [Moles/volume] in Serum or Vnjsas19.0-31.0[facility] Medical CenterChloride [Moles/volume] in Serum or PlasmaOrdered By: Lynnette Chapman on 57-15-3284Avmylpfu [Moles/Vol]Chloride [Moles/volume] in Serum or Uefifp94-898 [facility] Medical CenterComplete Blood Count Auto Diffon 08-18-2024 Basophils (Bld) [#/Vol]0.0 10*3/uLNormal0.0-0.2The [facility] Comment on above:Result Comment: PERFORMED BY: [place] [address] PATHOLOGIST ACUTE CARE OCCUPATIONAL THERAPIST JANA OLMEDO M.D.Performed By: #### HS TROP, LIPASE, PT, BMP, HEPATIC, CK, CBC, BNP #### [place] [address] USABasophils/100 WBC (Bld)0.7 %Normal.The [facility] Physician GroupComment on above:Performed By: #### HS TROP, LIPASE, PT, BMP, HEPATIC, CK, CBC, BNP #### [place] [address] USAEosinophils (Bld) [#/Vol]0.2 10*3/uLNormal0.0-0.45The [facility] Physician GroupComment on above:Performed By: #### HS TROP, LIPASE, PT, BMP, HEPATIC, CK, CBC, BNP #### [place] [address] USAEosinophils/100 WBC (Bld)3.5 %Normal.The [facility] Physician GroupComment on above:Performed By: #### HS TROP, LIPASE, PT, BMP, HEPATIC, CK, CBC, BNP #### [place] [address] USAErythrocyte distribution width (RBC) [Ratio]12.6 %Normal 11.9-15.3The [facility] Physician GroupComment on above:Performed By: #### HS TROP, LIPASE, PT, BMP, HEPATIC, CK, CBC, BNP #### [place] [address] USAHematocrit (Bld) [Volume fraction]43.7 %Hcprte14.0-46.4The [facility] Physician GroupComment on above:Performed By: #### HS TROP, LIPASE, PT, BMP, HEPATIC, CK, CBC, BNP #### [place] [address] USAHemoglobin (Bld) [Mass/Vol]15.1 g/zIXjnjec93.8-15.4The [facility] Physician GroupComment on above:Performed By: #### HS TROP, LIPASE, PT, BMP, HEPATIC, CK, CBC, BNP #### [place] [address] USALymphocytes (Bld) [#/Vol]2.2 10*3/uLNormal1.00-4.8The [facility] Physician GroupComment on above:Performed By: #### HS TROP, LIPASE, PT, BMP, HEPATIC, CK, CBC, BNP #### [place] [address] USALymphocytes/100 WBC (Bld)36.5 %Normal.The [facility] Physician GroupComment on above:Performed By: #### HS TROP, LIPASE, PT, BMP, HEPATIC, CK, CBC, BNP #### [place] [address] USAMCH (RBC) [Entitic mass]30.7 bgNhyacz36.7-34.3The [facility] Physician GroupComment on above:Performed By: #### HS TROP, LIPASE, PT, BMP, HEPATIC, CK, CBC, BNP #### [place] [address] USAMCV (RBC) [Entitic vol]88.8 dYGxddyy20-961Yvo [facility] Physician GroupComment on above:Performed By: #### HS TROP, LIPASE, PT, BMP, HEPATIC, CK, CBC, BNP #### [place] [address] USAMean Corpuscular HGB Conc34.5 g/oOHcnqtc45.0-35.0The [facility] Physician GroupComment on above:Performed By: #### HS TROP, LIPASE, PT, BMP, HEPATIC, CK, CBC, BNP #### [place] [address] USAMonocytes (Bld) [#/Vol]0.6 10*3/uLNormal0.0-0.8The [facility] Physician GroupComment on above:Performed By: #### HS TROP, LIPASE, PT, BMP, HEPATIC, CK, CBC, BNP #### [place] [address] USAMonocytes/100 WBC (Bld)16.97 %Normal0.00-20.00The [facility] Physician GroupComment on above:Performed By: #### HS TROP, LIPASE, PT, BMP, HEPATIC, CK, CBC, BNP #### [place] [address] USAMonocytes/100 WBC (Bld)10.5 %Normal.The [facility] Physician GroupComment on above:Performed By: #### HS TROP, LIPASE, PT, BMP, HEPATIC, CK, CBC, BNP #### [place] [address] USANeutrophils (Bld) [#/Vol]3.0 10*3/uLNormal1.8-7.7The [facility] Physician GroupComment on above:Performed By: #### HS TROP, LIPASE, PT, BMP, HEPATIC, CK, CBC, BNP #### [place] [address] USANeutrophils/100 WBC (Bld)48.8 %Normal.The [facility] Physician GroupComment on above:Performed By: #### HS TROP, LIPASE, PT, BMP, HEPATIC, CK, CBC, BNP #### [place] [address] USANRBC%0.1 /100{WBC}Normal0-0.5The [facility] Comment on above:Performed By: #### HS TROP, LIPASE, PT, BMP, HEPATIC, CK, CBC, BNP #### [place] [address] USAPlatelet mean volume (Bld) [Entitic vol]7.9 fLNormal 6.3-10.7The [facility] Physician GroupComment on above:Performed By: #### HS TROP, LIPASE, PT, BMP, HEPATIC, CK, CBC, BNP #### [facility] [address] [place] [address] USAPlatelets (Bld) [#/Vol]204 10*3/zHBdibiu273-691Smu [facility] Physician GroupComment on above:Performed By: #### HS TROP, LIPASE, PT, BMP, HEPATIC, CK, CBC, BNP #### [facility] [address] [place] [address] USARBC (Bld) [#/Vol]4.92 10*6/uLNormal3.60-5.00The [facility] Physician GroupComment on above:Performed By: #### HS TROP, LIPASE, PT, BMP, HEPATIC, CK, CBC, BNP #### [facility] [address] [place] [address] USAWBC (Bld) [#/Vol]6.1 10*3/uLNormal3.8-11.6The [facility] Physician GroupComment on above:Performed By: #### HS TROP, LIPASE, PT, BMP, HEPATIC, CK, CBC, BNP #### [facility] [address] [place] [id number] USACreatine Kinaseon 62-54-9777BW [Catalytic activity/Vol]53 U/PMffarh34-393Ytw [facility] Physician GroupComment on above:Performed By: #### HS TROP, LIPASE, PT, BMP, HEPATIC, CK, CBC, BNP ####[facility] [address] [place] [id number] USACreatine kinase [Enzymatic activity/volume] in Serum or PlasmaOrdered By: Lynnette Chapman on 19-09-6147AJ [Catalytic activity/Vol]Creatine kinase [Enzymatic activity/volume] in Serum or Jdapjd45-205MbxrlpxnbKettering Health Behavioral Medical CenterCreatinine [Mass/volume] in Serum or PlasmaOrdered By: Lynnette Chapman on 28-48-3874Vvllfyikat [Mass/Vol]Creatinine [Mass/volume] in Serum or Plasma0.60-1.20[facility] Medical CenterECG 12 lead ECGon 67-14-9925MHT 12 lead ECGOH[facility] Main [place] [address] [place] [address] Electrocardiograph Report Signed Patient: Jose Alberto Saleem MR#: [id number] 571 : 1965 Acct:[id number] Age/Sex: 59 / F ADM Date: 08/18/24 Loc: ER Room: Type: [facility] ER Attending Dr: Ordering Provider: [...] wave abnormality Confirmed by Lynnette Chapman MD ([id number]) on 08/18/2024 11:22:40 PM Referred By: Electronically Signed By: Lynnette Chapman MD Transcribed By: MUS Signed By Lynnette Chapman MD 08/01 05/[address] [place] [address] Physician GroupEosinophils Auto (Bld) [#/Vol] Ordered By: Lynnette Chpaman on 98-75-1818Nfsqxcrytjh (Bld) [#/Vol]Automated eosinophil count0.0-0.45[facility] Medical CenterEosinophils/100 WBC Auto (Bld)Ordered By: Lynnette Chapman on 24-03-1149Bwevdirdtpw/100 WBC (Bld) Automated eosinophil %.[facility] Medical CenterErythrocyte distribution width Auto (RBC) [Ratio]Ordered By: Lynnette Chapman on 45-60-2626Wkjclqatwfz distribution width (RBC) [Ratio]Erythrocyte distribution width [Ratio] by Automated count11.9-15.3FMemorial Health System Marietta Memorial HospitalGlobulin Calc (S) [Mass/Vol]Ordered By: Lynnette Chapman on 72-74-9442Kzlksxmx (S) [Mass/Vol]Serum globulin measurement by calculation (mass/volume)[facility] Medical CenterGlucose [Mass/volume] in Serum or PlasmaOrdered By: Lynnette Chapman on 77-87-6284Lbkdzmj [Mass/Vol]Glucose [Mass/volume] in Serum or Yvgtas13-902 [facility] Medical CenterComment on above:ADA recommended reference rangeRandom Glucose Reference Range is dependent on time and content of last meal. Glucose of more than 200 mg/dL in a nonstressed, ambulatory subject supports the diagnosisof Diabetes Mellitus.Hematocrit Auto (Bld) [Volume fraction]Ordered By: Lynnette hCapman on 01-32-8827Qsfettvzdp (Bld) [Volume fraction]Hematocrit [Volume Fraction] of Blood by Automated count34.0-46.4 [facility] Medical CenterHemoglobin [Mass/volume] in BloodOrdered By: Lynnette Chapman on 33-97-2169Earxqvalrf (Bld) [Mass/Vol]Hemoglobin [Mass/volume] in Blood11.8-15.4FMemorial Health System Marietta Memorial HospitalHepatic Panelon 08-18-2024 Albumin [Mass/Vol]4.3 g/dLNormal3.5-5.7The [facility] Physician GroupComment on above:Performed By: #### HS TROP, LIPASE, PT, BMP, HEPATIC, CK, CBC, BNP ####[address] Albumin/Globulin [Mass ratio]1.7 {ratio}NormalThe [facility] Comment on above:Performed By: #### HS TROP, LIPASE, PT, BMP, HEPATIC, CK, CBC, BNP ####[place] [id number] USAALP [Catalytic activity/Vol]89 U/TBqxjtn11-463Kyo [facility] Physician [facility] Regional Medical CenterComment on above:Performed By: #### HS TROP, LIPASE, PT, BMP, HEPATIC, CK, CBC, BNP ####[place] [id number] USAALT [Catalytic activity/Vol]42 U/LNormal7-52The [facility] Physician [facility] Regional Medical CenterComment on above:Performed By: #### HS TROP, LIPASE, PT, BMP, HEPATIC, CK, CBC, BNP ####[place] [address] USAAST [Catalytic activity/Vol]31 U/SGiqopg81-97Wnk [facility] Physician [facility] Medical CenterComment on above:Performed By: #### HS TROP, LIPASE, PT, BMP, HEPATIC, CK, CBC, BNP ####[address] Bilirubin [Mass/Vol]0.4 mg/dLNormal0.3-1.0The [facility] Physician GroupComment on above:Performed By: #### HS TROP, LIPASE, PT, BMP, HEPATIC, CK, CBC, BNP ####[address] Bilirubin,Indirect0.3 mg/dLNormMercer County Community Hospitale [facility] Physician GroupComment on above: Performed By: #### HS TROP, LIPASE, PT, BMP, HEPATIC, CK, CBC, BNP ####[place] [address] USABilirubin.indirect [Mass/Vol]0.10 mg/dLNormal0.03-0.18The [facility] Physician GroupComment on above:Performed By: #### HS TROP, LIPASE, PT, BMP, HEPATIC, CK, CBC, BNP ####[address] Globulin (S) [Mass/Vol]2.6 g/dLNormMercer County Community Hospitale [facility] Physician [facility] Medical CenterComment on above:Performed By: #### HS TROP, LIPASE, PT, BMP, HEPATIC, CK, CBC, BNP ####[place] [address] USAProtein [Mass/Vol]6.9 g/dLNormal6.4-8.9The [facility] Physician O[facility] Regional Medical CenterComment on above: Performed By: #### HS TROP, LIPASE, PT, BMP, HEPATIC, CK, CBC, BNP ####[place] [address] USAINR in Platelet poor plasma by Coagulation assayOrdered By: Lynnette Chapman on 00-10-4025IID Coag (PPP) [Relative time]INR in Platelet poor plasma by Coagulation assayKettering Health Behavioral Medical CenterComment on above:INR Therapeutic Range A) [...] by Automated counOrdered By: Lynnette Chapman on 38-94-6677YUL corrected for nucl RBC Auto (Bld) [#/Vol]Leukocytes [#/volume] corrected for nucleated erythrocytes in Blood by Automated coun3.8-11.6FMemorial Health System Marietta Memorial HospitalLipaseon 68-75-4482Xindgt [Catalytic activity/Vol]110.0 U/LHigh11.0-82.0The [facility] Physician GroupComment on above:Result Comment: PERFORMED BY: [facility] [address] [place] [address] PATHOLOGIST ACUTE CARE OCCUPATIONAL THERAPIST JANA OLMEDO M.D.Performed By: #### HS TROP, LIPASE, PT, BMP, HEPATIC, CK, CBC, BNP ####[facility] [place] [address] USALipase [Enzymatic activity/volume] in Serum or PlasmaOrdered By: Lynnette Chapman on 08-26-0210Sbdsqw [Catalytic activity/Vol]Lipase [Enzymatic activity/volume] in Serum or JoeygrEreu26.0-82.0[facility] Medical CenterLymphocytes Auto (Bld) [#/Vol]Ordered By: Lynnette Chapman on 08-18-2024 Lymphocytes (Bld) [#/Vol]Lymphocytes [#/volume] in Blood by Automated count 1.00-4.8[facility] Medical CenterLymphocytes/100 WBC Auto (Bld)Ordered By: Lynnette Chapman on 92-56-4561Yvmcpyoxzec/100 WBC (Bld)Lymphocytes/100 leukocytes in Blood by Automated count.[facility] Auto (RBC) [Entitic mass]Ordered By: Lynnette Chapman on 56-19-6537LME (RBC) [Entitic mass]MCH [Entitic mass] by Automated count24.7-34.3FMemorial Health System Marietta Memorial HospitalMCHC Auto (RBC) [Mass/Vol]Ordered By: Lynnette Chapman on 07-10-5786IBAO (RBC) [Mass/Vol]MCHC [Mass/volume] by Automated count32.0-35.0[facility] Medical CenterMCV Auto (RBC) [Entitic vol]Ordered By: Lynnette Chapman on 65-26-9087DHY (RBC) [Entitic vol]MCV [Entitic volume] by Automated yeyfj26-571 [facility] Medical CenterMonocyte distribution width [Entitic volume] in Blood by AutomatedOrdered By: Lynnette Chapman on 90-74-2277Qlgzhyfp distribution width Auto (Bld) [Entitic vol]Monocyte distribution width [Entitic volume] in Blood by Automated0.00-20.00[facility] Medical CenterMonocytes Auto (Bld) [#/Vol]Ordered By: Lynnette Chapman on 64-43-6129Qsfsfqeph (Bld) [#/Vol] Automated blood monocyte count0.0-0.8[facility] Monocytes/100 WBC Auto (Bld)Ordered By: Lynnette Chapman on 08-18-2024 Monocytes/100 WBC (Bld)Automated monocyte %.[facility] Natriuretic peptide B [Mass/Vol]Ordered By: Lynnette Chapman on 08-18-2024 Natriuretic peptide B (Bld) [Mass/Vol]BNP ser/plas5-100[facility] Medical CenterNeutrophils Auto (Bld) [#/Vol]Ordered By: Lynnette Chapman on 14-60-4389Bnzbwgxlghx (Bld) [#/Vol]Neutrophils [#/volume] in Blood by Automated count1.8-7.7FMemorial Health System Marietta Memorial HospitalNeutrophils/100 WBC Auto (Bld) Ordered By: Lynnette Chapman on 24-29-9047Jxdchoomqkf/100 WBC (Bld)Automated neutrophil %.[facility] CenterNo Panel InformationOrdered By: Lynnette Chapman on 62-10-5939Yytvkkslh GFR (CKD-EPI)> 60.0 mL/MinKettering Health Behavioral Medical CenterPharmacy Creatinine Clearance (Chem95.72[facility] Medical CenterNucleated erythrocytes [Presence] in Blood by Automated countOrdered By: Lynnette Chapman on 41-61-6807Bhjdcbfvb RBC Auto Ql (Bld) Nucleated erythrocytes [Presence] in Blood by Automated count0-0.5FMemorial Health System Marietta Memorial HospitalPlatelet mean volume Auto (Bld) [Entitic vol]Ordered By: Lynnette Chapman on 93-98-9114Lgzlgwqp mean volume (Bld) [Entitic vol]Platelet mean volume [Entitic volume] in Blood by Automated count6.3-10.7FMemorial Health System Marietta Memorial HospitalPlatelets Auto (Bld) [#/Vol]Ordered By: Lynnette Chapman on 42-98-7757Mvdwccjqg (Bld) [#/Vol]Platelets [#/volume] in Blood by Automated -630DqcqerddpKettering Health Behavioral Medical CenterPotassium [Moles/volume] in Serum or PlasmaOrdered By: Lynnette Chapman on 51-10-3968Ougcngjjh [Moles/Vol]Potassium [Moles/volume] in Serum or Plasma3.5-5.1FMemorial Health System Marietta Memorial HospitalProtein [Mass/volume] in Serum or PlasmaOrdered By: Lynnette Chapman on 37-33-0042Rmvsvoz [Mass/Vol]Protein [Mass/volume] in Serum or Plasma6.4-8.9[facility] Medical CenterProthrombin Time INRon 23-80-8958ZUE Coag (PPP) [Relative time]1.0 {INR}NormalThe [facility] Physician GroupComment on above:Result Comment: INR Therapeutic [...] heart valves: 3 - 4.5 PERFORMED BY: [place] [address] PATHOLOGIST ACUTE CARE OCCUPATIONAL THERAPIST JANA OLMEDO M.D.Performed By: #### HS TROP, LIPASE, PT, BMP, HEPATIC, CK, CBC, BNP #### [place] [address] USAPT Coag (PPP) [Time]11.7 sNormal9.0-12.9The [facility] Physician GroupComment on above:Result Comment: A hematocrit value greater than 55% may lead to inaccurate results in coagulation testing. Patients having hematocrit values >55% require a special collection tube for coagulation studies. Please contact the laboratory at [phone] for redraw instructions.Performed By: #### HS TROP, LIPASE, PT, BMP, HEPATIC, CK, CBC, BNP #### [facility] [address] [place] [address] USAProthrombin time (PT)Ordered By: Lynnette Chapman on 55-13-6204HK Coag (PPP) [Time]Prothrombin time (PT)9.0-12.9[facility] Medical CenterComment on above:A hematocrit value greater than 55% may lead to inaccurate results in coagulation testing. Patientshaving hematocrit values >55% require a special collection tube for coagulation studies. Please contact the laboratory at [phone] for redraw instructions.RBC Auto (Bld) [#/Vol]Ordered By: Lynnette Chapman on 40-47-0184FMU (Bld) [#/Vol]Erythrocytes [#/volume] in Blood by Automated count3.60-5.00[facility]iance Hospitalerum or plasma albumin/globulin mass ratioOrdered By: Lynnette Chapman on 08-18-2024 Albumin/Globulin [Mass ratio]Serum or plasma albumin/globulin mass ratio [facility] Hospitalerum or plasma anion gap determinationOrdered By: Lynnette Chapman on 21-38-4810Ahfqx gap [Moles/Vol]Serum or plasma anion gap determination6.0-15.0[facility] Hospitalerum or plasma non- glucuronidated bilirubin measurement (mass/volume)Ordered By: Lynnette Chapman on 64-93-2902Zfgulrjja.indirect [Mass/Vol]Serum or plasma non-glucuronidated bilirubin measurement (mass/volume)[facility] Hospitalodium [Moles/volume] in Serum or PlasmaOrdered By: Lynnette Chapman on 91-58-5564Mxtlxi [Moles/Vol]Sodium [Moles/volume] in Serum or Uwjugs156-559YtohyhpfuKettering Health Behavioral Medical CenterTroponin I High Sensitivityon 51-34-1455Tqnopyxb I High Sensitivity4.7 pg/mLNormal0.0-15.0The [facility] Physician GroupComment on above: Result Comment: PERFORMED BY: [facility] [address] [place] [address] PATHOLOGIST ACUTE CARE OCCUPATIONAL THERAPIST JANA OLMEDO M.D.Performed By: #### HS TROP ####[place] [address] [place] [address] USATroponin I High Sensitivity5.1 pg/mLNormal0.0-15.0The [facility] Physician GroupComment on above:Result Comment: PERFORMED BY: [place] [id number] PATHOLOGIST ACUTE CARE OCCUPATIONAL THERAPIST JANA OLMEDO M.D.Performed By: #### HS TROP, LIPASE, PT, BMP, HEPATIC, CK, CBC, BNP ####[place] [address] [place] [address] USATroponin I.cardiac [Mass/volume] in Serum or Plasma by Detection limit <= 0.01 ng/Ordered By: Lynnette Chapman on 38-73-9565Rosbvxvp I.cardiac DL <= 0.01 ng/mL [Mass/Vol]Troponin I.cardiac [Mass/volume] in Serum or Plasma by Detection limit <= 0.01 ng/0.0-15.0[facility] Medical CenterUrea nitrogen [Mass/volume] in Serum or PlasmaOrdered By: Lynnette Chapman on 90-54-5735Nllc nitrogen [Mass/Vol]Urea nitrogen [Mass/volume] in Serum or Plasma 7-25[facility] Medical CenterWBC Auto (Bld) [#/Vol]Ordered By: Lynnette Chapman on 54-03-1510BEP (Bld) [#/Vol]Leukocytes [#/volume] in Blood by Automated count3.8-11.6FMemorial Health System Marietta Memorial HospitalXR chest 2V*on 21-52-5809ZE chest 2V*[facility] Main [address] [address] XRay Report Signed Patient: Jose Alberto Saleem MR#: [id number] 571 : 1965 Acct:[id number] Age/Sex: 59 / F ADM Date: 08/18/24 Loc: Room: [address] [place] [address] Type: ADM INOo Attending Dr: Donis Arroyo [...] Thelma Wick M.D.08/19/2024 12:10 AM Dictation Location: [place] [address] Transcribed By: [facility] 08/19/24 0010 Dictated By: Thelma Wick MD 08/18/242210 Signed By: 08/19/24 0010[facility] Physician GroupUrology Office/Clinic Noteon 99-59-0089Cnzcdgu Office/Clinic NoteUrology Office/Clinic Note Chief Complaint OAB [...] Myrbetriq from 25mg to 50mg qd Ordered: 16507 Measure Post Void residual urine and/or bladder capacity by US- non-imaging E&M of Est. Patient Moderate 30-39 Min 69798 Urnls Dip Stick Auto w/o Microscopy POC 09997 2. Urethral pain (R39.89: Other symptoms and [...] # 90 tab(s), Refills(s) 3, Pharmacy: [facility] [id number], 160, cm, 08/05/24 11:29:00 EST, Height/Length Dosing, [...] year Additional Instructions: Patient Education Kidney Stones, Cnqd-vp-Sqqx Problem List/Past Medical History Ongoing Anticoagulated Feeling (more content not included)...[facility] Health InstituteComment on above:Result Comment: Electronically Signed By: JENNIFER MARTINO PA-C\.br\Date and Time Signed: 08/05/2412:20 ESTGlucose Glucometer (BldC) [Mass/Vol]on 87-39-3788Xlenhyp [Mass/Vol]79 mg/dMGvbxwt68-50BlxNgrtdqBellevue Hospitalurgical Pathology Reporton 92-28-0601Couddzrx Pathology Report(NOTE) Path Number: [id number] -- Diagnosis -- ENDOMETRIAL CURETTINGS: -BENIGN ENDOMETRIAL [...] Microscopic Description Microscopic examination performed. Processing Lab: [address] [address] Interpretation Performed at [facility] [address] [place] [address] SURGICAL PATHOLOGY CONSULTATION Patient Name: JOSE ALBERTO SALEEM Med Rec: [id number] [facility] ANATOMIC PATHOLOGY [address] [place] [address]. [place], [place] [address] NormalMercy Lawrence+Memorial HospitalUS NON OB TRANSVAGINALon 84-37-1372DE NON OB TRANSVAGINALTable formatting from the original [...] by: Gaby Tello DO 06/05/23 Final resultNormalMercy Santa Barbara Cottage HospitalCeruloplasminon 12-12-2022 Jerumowbcmgzr71.6 mg/dL19.0-39.0 mg/dLLincoln Hospital [employer] Other Ferritinon 21-80-6258Sqxlixhc [Mass/Vol]43.5223202 ng/mAMzibei26.0-306.8 ng/mLNKings County Hospital Center [employer] Other Hepatitis A Antibody Totalon 17-92-2286Zunjzzmex A Antibody TotalNegative.[place] [employer] Other Hepatitis B Surface Antibodyon 33-15-6102Qchyewjgd B Surface AntibodyNon-ReactiveNon ReactiveLincoln Hospital [employer] Other Immunoglobulin Javi 61-63-3798Nsprfxdxsqotgt G823 mg/dL 586-1602 mg/dLLeola [employer] Other 175-3484Hfpwu-Igualz Microsomal Abon 96-44-6567Yhbhc-Kidney Microsomal Ab1.10.0-20.0[place] [employer] Other Mitochondrial (M2) Antibodyon 22-99-1074Zyersqydebzyw (M2) Antibody<20.00.0-20.0Nofreeman [facility] [employer] Other Smooth Muscle Antibodyon 33-96-3791Pjefqz Muscle Jmsxznwn94-46Bxgku [employer] Other mr MRCPon 04-37-3839TX [facility] [employer] Other mr [facility] [employer] Other mr [address] [employer] Other mr MRCPSANNAMARIA rhoades [address]KejmmLincoln Hospital [employer] Other mr MRCPMRI ReportLincoln Hospital [employer] Other mr MRCPSignedLeola [employer] Other mr MRCPPatient: Jose Alberto Saleem MR#: [id number] [employer] Other mr ANSM982Hythx [employer] Other mr MRCPDOB: 1965 Acct:[id number] [employer] Other mr MRCPAge/Sex: 57 / F ADM Date: 11/10/22[place] [employer] Other mr MRCPLoc: MR Room: Type: [facility] [employer] Other mr MRCPAttending Dr: Evert Bruno [facility] [employer] Other mr MRCPCopies to: Evert Bruno [facility] [employer] Other mr MRCPOrdering Provider: Evert Bruno [facility] [employer] Other mr MRCPDate of Service: 11/10/22Leola [employer] Other mr MRCPAccession #: ([id number]) MR/MR MRCP: Abdominal pain;Common bile duct dilatation;Elevated liver [facility] [employer] Other mr MRCRCUniversity of [facility]'s Hospital [employer] Other mr MRCPCLINICAL DATA: Elevated lipase. Abnormal outside abdominal CTLeola [employer] Other mr MRCPCOMPARISON: CT abdomen 10/16/2022Leola [employer] Other mr MRCPMultiecho imaging of the abdomen was performed along with radial imaging of the biliary tree.[employer] Other mr MRCPThe gallbladder surgically absent. There is no significant intrahepatic biliary dilatation. [facility] [employer] Other mr MRCPcommon duct is slightly prominent measuring up to 6 mm. It tapers toward the ampulla. No inNcox branson [employer] Other MR MRCPtraluminal filling defects are identified to suggest choledocholithiasis. The pancreatic duct isNofreeman [facility] [employer] Other MR MRCPalso borderline prominent measuring 2 - 3 mm. No intrahepatic masses are identified. No pancreaticLeola [employer] Other mr MRCPabnormalities are noted. The spleen and adrenal glands are within normal limits. There is [facility] [employer] Other MR MRCPhydronephrosis. There are right renal cysts. There is no aortic aneurysm. No adenopathy [facility] [employer] Other mr MRCPascites is seen. There is no dilated bowel within the pkzqd-mh-zbqu.[employer] Other mr MRCPORDER #: [id number] MR/MR MRCPNKings County Hospital Center [employer] Other mr MRCPIMPRESSION:[employer] Other MR MRCPSLIGHTLY PROMINENT COMMON DUCT, WITHOUT CHOLEDOCHOLITHIASIS. THIS MAY RELATE TO PREVIOUSLeola [employer] Other mr MRCPCHOLECYSTECTOMY.[employer] Other mr MRCPRIGHT RENAL CYSTS.[employer] Other mr MRCPNO OTHER SIGNIFICANT MRI FINDINGS.[employer] Other mr MRCPImpression dictated by: Thelma Wick M.D.11/10/2022 7:00 [facility] [employer] Other mr MRCPDictation Location: [address] [employer] Other mr MRCPTranscribed By: BEN 11/10/22[facility] [employer] Other mr MRCPDictated By: Thelma Wick MD 11/10/221849 [employer] Other mr MRCPSigned By:[employer] Other mr MRCP11/10/221899Leola [employer] Other albumin [Mass/volume] in Serum or PlasmaOrdered By: sara Bruno on 23-72-5370Pafcoya [Mass/Vol]4.0 g/dL3.2-5.5FMemorial Health System Marietta Memorial HospitalDirect bilirubin measurementOrdered By: Imad Asasara on 11-01-2022 Bilirubin.direct [Mass/Vol]0.1 mg/dL0.0-0.4FMemorial Health System Marietta Memorial Hospital Globulin Calc (S) [Mass/Vol]Ordered By: Imad Asaad on 81-97-3694Rsydmiob (S) [Mass/Vol]2.5 g/dLKettering Health Behavioral Medical CenterHepatic Panelon 11-01-2022 Albumin [Mass/Vol]4.591115 g/dLNormal3.2-5.5 g/dLLeola [employer] Other aLT [Catalytic activity/Vol]94 U/WZsiw91-57 U/LNcox [place] [employer] Other bilirubin [Mass/Vol]0.0978504 mg/dLNormal0.3-1.2 mg/dL [place] [employer] Other bilirubin.indirect [Mass/Vol]0.7634878 mg/dLNormal0.0- 0.4 mg/dLLeola [employer] Other Protein [Mass/Vol]6.363676 g/dLNormal6.1-7.9 g/dLLeola [employer] Other Hepatic Panel0.5 mg/dLNort [employer] Other Hepatic Panel2.5 g/dLNoFirst Choice Emergency Room Other Protein [Mass/volume] in Serum or PlasmaOrdered By: Imad Asaad on 63-69-4759Camqsfd [Mass/Vol]6.5 g/dL6.1-7.9[facility]iance Hospitalerum or plasma alanine aminotransferase measurement without P-5'-P (enzymatic activiOrdered By: Imad Asaad on 97-89-1397TYA No additional P-5'-P [Catalytic activity/Vol]94 U/R44-46TelpjyvozMercy Health Defiance Hospitalerum or plasma albumin/globulin mass ratioOrdered By: Imad Asaad on 11-01-2022 Albumin/Globulin [Mass ratio]1.6 {ratio}[facility] Hospitalerum or plasma alkaline phosphatase measurement (enzymatic activity/volume)Ordered By: Imad Asaad on 09-30-6755VVY [Catalytic activity/Vol]93 U/A48-95IilhazxwrMercy Health Defiance Hospitalerum or plasma aspartate aminotransferase measurement (enzymatic activity/volume)Ordered By: Imad Asaad on [id number] [Catalytic activity/Vol]66 U/I06-39TllxjuwwgMercy Health Defiance Hospitalerum or plasma non- glucuronidated bilirubin measurement (mass/volume)Ordered By: Imad Asaad on [id number].indirect [Mass/Vol]0.5 mg/dLMercy Health Defiance Hospitalerum or plasma total bilirubin measurement (mass/volume)Ordered By: Imad Asaad on 37-04-9162Xsrjliltg [Mass/Vol]0.6 mg/dL0.3-1.2FMemorial Health System Marietta Memorial HospitalCT ABDOMEN WO/W CONon [id number] ABDOMEN WO/W CONEXAMINATION: CT ABDOMEN WO/W CON [...] Electronically authenticated by: JAE WILSON Date: 2022-10-17 08:23[facility] CenterAMMONIAon [id number] (P) [Moles/Vol]10 umol/LCritically jrk61-00Uie [facility] CenterComment on above:Performed By: #### COLE #### [facility] [address] [place] [address] Dr. Ayden CamAMYLASEon 25-76-7963Rrybfsb [Catalytic activity/Vol]144 U/L Critically iwbr32-747Som [facility] CenterComment on above:Performed By: #### LIPA #### [facility] [address] [place] [address] Dr. Ayden Abdul AUTO DIFFon 60-95-5442ZHYQ #0.0 103/ulNormal0.0-0.1The [facility] CenterComment on above:Performed By: #### CBC #### [facility] [address] [address] [address] Ayden CamBasophils/100 WBC (Bld)0.2 %Normal0.2-2.0The [facility] Comment on above:Performed By: #### CBC #### [facility] [address] [address] [address] Hensley ChangEAmauri #0.2 103/ulNormal0.0-0.7The [facility] CenterComment on above: Performed By: #### CBC #### [facility] [address] [place] [address] Dr. Ayden Koehlerosinophils/100 WBC (Bld)3.3 %Normal0.9-7.0The [facility] Comment on above:Performed By: #### CBC #### [facility] [address] [place] [address] Dr. Ayden Koehlerrythrocyte distribution width (RBC) [Ratio]12.1 %Frjuwf90.0-15.0 The [facility] CenterComment on above:Performed By: #### CBC #### [facility] [address] [place] [address] Dr. Ayden CamHematocrit (Bld) [Volume fraction]40.0 %Ooabzq60.0-48.0The [facility] CenterComment on above:Performed By: #### CBC #### [facility] [address] [place] [address] Dr. Ayden CamHemoglobin (Bld) [Mass/Vol]14.2 g/kTVozuzm72.0-16.0The [facility] CenterComment on above:Performed By: #### CBC #### [facility] [address] [place] [address] Dr. Ayden Dickson #0.01 10e3/ulNormal0.00-0.03The [facility] CenterComment on above:Performed By: #### CBC #### [facility] [address] [place] [address] Dr. Ayden Dickson %0.2 %Normal0.0-0.5The [facility] CenterComment on above: Performed By: #### CBC #### [facility] [address] [place] [address] Dr. Ayden PikeH #1.5 103/ulNormal1.2-3.8The [facility] CenterComment on above:Performed By: #### CBC #### [facility] [address] [place] [address] Dr. Yilan ChangLymphocytes/100 WBC (Bld)24.2 %Pjpprr47.5-60.0The [facility] CenterComment on above:Performed By: #### CBC #### [facility] [address] [place] [address] Dr. Ayden Melendez DIFF REQNONormalThe [facility] CenterComment on above: Performed By: #### CBC #### [facility] [address] [place] [address] Dr. Ayden Mccormack (RBC) [Entitic mass]30.0 wtJryayy44.7-34.0The [facility] HospitalComment on above:Performed By: #### CBC #### [facility] [address] [place] [address] Dr. Ayden Mccormack (RBC) [Mass/Vol]35.5 g/dLCritically high29.9-35.2The [facility] CenterComment on above:Performed By: #### CBC #### [facility] [address] [place] [address] Dr. Ayden Melton (RBC) [Entitic vol]84.4 kLKksgqd57.0-99.0The [facility] CenterComment on above:Performed By: #### CBC #### [facility] [address] [place] [address] Dr. Ayden Thornton #0.6 103/ulNormal0.3-0.8The [facility] CenterComment on above:Performed By: #### CBC #### [facility] [address] [place] [address] Dr. Ayden Atkinsonocytes/100 WBC (Bld)10.3 %Normal1.7-12.0The [facility] Comment on above:Performed By: #### CBC #### [facility] [address] [place] [address] Dr. Ayden Garrett #3.7 103/ulNormal1.4-6.5The [facility] CenterComment on above:Performed By: #### CBC #### [facility] [address] [place] [address] Dr. Ayden Hongutrophils/100 WBC (Bld)61.8 %Kwmsle69.0-75.0The [facility] CenterComment on above:Performed By: #### CBC #### [facility] [address] [place] [address] Dr. Ayden CamPlatelet mean volume (Bld) [Entitic vol]9.0 fLCritically low 9.5-13.5The [facility] CenterComment on above:Performed By: #### CBC #### [facility] [address] [place] [address] Dr. Ayden CamPLT191 103/doOdswwu082-112Ylu [facility] CenterComcorewell health [facility] hospital on above: Performed By: #### CBC #### [facility] [address] [place] [address] Dr. Ayden CamRBC4.74 106/ulNormal4.20-5.40The [facility] Hospitalment on above:Performed By: #### CBC #### [facility] [address] [place] [address] Dr. Ayden CamWBC6.0 103/ulNormal4.0-11.0The [facility] CenterComment on above: Performed By: #### CBC #### [facility] [address] [place] [address] Dr. Ayden CamLIPASEon 05-34-0309Bmutce [Catalytic activity/Vol]168.0 U/LNormal 73.0-393.0The [facility] CenterComcorewell health greenville hospital on above:Performed By: #### LACT #### [facility] [address] [place] [address] Dr. Ayden CamPROF 14(COMP METB)on 91-00-5346Zqonfxj [Mass/Vol]3.6 g/dLNormal 3.4-5.0The [facility] on above:Performed By: #### LIPA #### [facility] [address] [place] [address] Dr. Ayden CamAlbumin/Globulin [Mass ratio]1.1 {ratio}NormalThe [facility] CenterComment on above:Performed By: #### LIPA #### [facility] [address] [address] [address] Ayden Tobar [Catalytic activity/Vol]93 U/YKawfbr39-317Zpc [facility] CenterComment on above:Performed By: #### LIPA #### [facility] [address] [address] [address] Ayden CoburnT [Catalytic activity/Vol]52 U/ZTvlxgz99-89Jhi [facility] CenterComment on above:Performed By: #### LIPA #### [facility] [address] [address] [address] Ayden Terrell gap [Moles/Vol]10.2 mmol/LNormalThe [facility] Comment on above:Performed By: #### LIPA #### [facility] [address] [address] [address] Ayden CamAST [Catalytic activity/Vol]33 U/RNyuoul69-01Qqt [facility] CenterComment on above:Performed By: #### LIPA #### [facility] [address] [address] [address] Ayden CamBilirubin [Mass/Vol]0.3 mg/dLNormal0.2-1.0[facility] Comment on above:Performed By: #### LIPA #### [facility] [address] [place] [address] Dr. Ayden CamCalcium [Mass/Vol]9.4 mg/dLNormal8.5-10.1[facility] Comment on above:Performed By: #### LIPA #### [facility] [address] [address] [address] Ayden CamChloride [Moles/Vol]99 mmol/QVhcyds64-193Yfw [facility] Comment on above:Performed By: #### LIPA #### [facility] [address] [address] [address] Ayden CamCO2 [Moles/Vol]33.7 mmol/LCritically high21.0-32.0The [facility] CenterComment on above:Performed By: #### LIPA #### [facility] [address] [address] [address] Ayden CamCreatinine [Mass/Vol]0.62 mg/dLNormal0.55-1.02Doctors HospitalComment on above:Performed By: #### LIPA #### [facility] [address] [address] [address] Ayden KoehlerGFR-AF SAO TOMEAN>60Normal>=60The [facility] CenterComment on above:Performed By: #### LIPA #### [facility] [address] [address] [address] Ayden KoehlerGFR-NON AF SAO TOMEAN>60Normal>=60The [facility] CenterComment on above:Performed By: #### LIPA #### [facility] [address] [address] [address] Ayden CamGlobulin (S) [Mass/Vol]3.4 g/dLNormalThe [facility] CenterComment on above:Performed By: #### LIPA #### [facility] [address] [address] [address] Ayden CamGlucose [Mass/Vol]105 mg/zFGznlam38-570HsyDoctors Hospital Comment on above:Performed By: #### LIPA #### [facility] [address] [address] [address] Ayden CamPotassium [Moles/Vol]3.9 mmol/LNormal3.5-5.1The [facility] Comment on above:Performed By: #### LIPA #### [facility] [address] [address] [address] Ayden CamProtein [Mass/Vol]7.0 g/dLNormal6.4-8.2The [facility] Comment on above:Performed By: #### LIPA #### [facility] [address] [address] [address] Ayden CamSodium [Moles/Vol]139 mmol/FNjjnpf020-837WafDoctors Hospital Comment on above:Performed By: #### LIPA #### [facility] [address] [place] [address] Dr. Ayden Santos nitrogen [Mass/Vol]28.0 mg/dLCritically high7.0-18.0The [facility] CenterComment on above:Performed By: #### LIPA #### [facility] [address] [place] [address] Dr. Ayden Santos nitrogen/Creatinine [Mass ratio]45.2 mg/mgNormalThe [facility] CenterComment on above:Performed By: #### LIPA #### [facility] [address] [place] [address] Dr. Ayden CamAMMONIAon 19-90-2822Zzyizso (P) [Moles/Vol]16 umol/BOkzcoz22-24 The [facility] CenterComment on above:Performed By: #### AMM #### [facility] [address] [place] [address] Dr. Ayden CamAMYLASEon 16-11-7254Dgsqftg [Catalytic activity/Vol]189 U/L Critically gvml06-197Txp [facility] CenterComment on above:Performed By: #### LIPA #### [facility] [address] [place] [address] Dr. Ayden Abdul AUTO DIFFon 33-60-1674MZWI #0.0 103/ulNormal0.0-0.1The [facility] CenterComment on above:Performed By: #### CBC #### [facility] [address] [place] [address] Dr. Ayden CamBasophils/100 WBC (Bld)0.2 %Normal0.2-2.0The [facility] Comment on above:Performed By: #### CBC #### [facility] [address] [place] [address] Dr. Ayden Steele #0.3 103/ulNormal0.0-0.7The [facility] Hospitalment on above: Performed By: #### CBC #### [facility] [address] [place] [address] Dr. Ayden Koehlerosinophils/100 WBC (Bld)5.2 %Normal0.9-7.0The [facility] Comment on above:Performed By: #### CBC #### [facility] [address] [place] [address] Dr. Ayden Koehlerrythrocyte distribution width (RBC) [Ratio]12.3 %Cpomsr31.0-15.0 The [facility] CenterComment on above:Performed By: #### CBC #### [facility] [address] [place] [address] Dr. Ayden CamHematocrit (Bld) [Volume fraction]36.9 %Whptru45.0-48.0The [facility] CenterComment on above:Performed By: #### CBC #### [facility] [address] [place] [address] Dr. Ayden CamHemoglobin (Bld) [Mass/Vol]12.4 g/aACcmisk27.0-16.0The [facility] CenterComment on above:Performed By: #### CBC #### [facility] [address] [place] [address] Dr. Ayden Dickson #0.01 10e3/ulNormal0.00-0.03The [facility] CenterComment on above:Performed By: #### CBC #### [facility] [address] [place] [address] Dr. Ayden CamIG %0.2 %Normal0.0-0.5The [facility] CenterComment on above: Performed By: #### CBC #### [facility] [address] [place] [address] Dr. Ayden PikeH #1.8 103/ulNormal1.2-3.8The [facility] CenterComment on above:Performed By: #### CBC #### [facility] [address] [place] [address] Dr. Ayden Workmanmphocytes/100 WBC (Bld)31.3 %Dpcujj93.5-60.0The [facility] CenterComment on above:Performed By: #### CBC #### [facility] [address] [place] [address] Dr. Ayden Melendez DIFF REQNONormalThe [facility] CenterComment on above: Performed By: #### CBC #### [facility] [address] [place] [address] Dr. Ayden Mccormack (RBC) [Entitic mass]30.0 duTrycbk18.7-34.0The [facility] CenterComment on above:Performed By: #### CBC #### [facility] [address] [place] [address] Dr. Ayden Mccormack (RBC) [Mass/Vol]33.6 g/cCCdbscb06.9-35.2The [facility] CenterComment on above:Performed By: #### CBC #### [facility] [address] [place] [address] Dr. Ayden Melton (RBC) [Entitic vol]89.1 jWWrwgjb13.0-99.0The [facility] CenterComment on above:Performed By: #### CBC #### [facility] [address] [place] [address] Dr. Ayden Thornton #0.6 103/ulNormal0.3-0.8The [facility] CenterComment on above:Performed By: #### CBC #### [facility] [address] [place] [address] Dr. Ayden Atkinsonocytes/100 WBC (Bld)10.1 %Normal1.7-12.0The [facility] Comment on above:Performed By: #### CBC #### [facility] [address] [place] [address] Dr. Ayden Garrett #3.1 103/ulNormal1.4-6.5The [facility] CenterComment on above:Performed By: #### CBC #### [facility] [address] [place] [address] Dr. Ayden Hongutrophils/100 WBC (Bld)53.0 %Zjhquy35.0-75.0The [facility] CenterComment on above:Performed By: #### CBC #### [facility] [address] [place] [address] Dr. Ayden CamPlatelet mean volume (Bld) [Entitic vol]9.4 fLCritically low 9.5-13.5The [facility] CenterComment on above:Performed By: #### CBC #### [facility] [address] [place] [address] Dr. Ayden CamPLT153 103/agNlyesp339-568Twa [facility] CenterComment on above: Performed By: #### CBC #### [facility] [address] [place] [address] Dr. Ayden CamRBC4.14 106/ulCritically low4.20-5.40The [facility] CenterComment on above:Performed By: #### CBC #### [facility] [address] [place] [address] Dr. Ayden CamWBC5.8 103/ulNormal4.0-11.0The [facility] CenterComment on above: Performed By: #### CBC #### [facility] [address] [place] [address] Dr. Ayden CamLIPASEon 79-71-4348Khlxhj [Catalytic activity/Vol]166.0 U/LNormal 73.0-393.0The [facility] CenterComment on above:Performed By: #### LIPA #### [facility] [address] [place] [address] Dr. Ayden CamLIVER PROFILEon 20-98-0637Jpmszsn [Mass/Vol]3.2 g/dLCritically low3.4-5.0The [facility] CenterComment on above:Performed By: #### LIPA #### [facility] [address] [place] [address] Dr. Ayden CamAlbumin/Globulin [Mass ratio]1.3 {ratio}NormalThe [facility] CenterComment on above:Performed By: #### LIPA #### [facility] [address] [place] [address] Dr. Ayden CamALP [Catalytic activity/Vol]88 U/OEnqzjm87-285Twv [facility] CenterComment on above:Performed By: #### LIPA #### [facility] [address] [address] [address] Ayden Hancock [Catalytic activity/Vol]66 U/LCritically isyw51-95Hqh [facility] CenterComment on above:Performed By: #### LIPA #### [facility] [address] [address] [address] Ayden CamAST [Catalytic activity/Vol]39 U/LCritically zsos66-73Vjs [facility] CenterComment on above:Performed By: #### LIPA #### [facility] [address] [address] [address] Ayden HackettI, CONJUGATED0.1 mg/dLNormal0.0-0.2The [facility] Comment on above:Performed By: #### LIPA #### [facility] [address] [place] [address] Dr. Ayden Hackettirubin [Mass/Vol]0.4 mg/dLNormal0.2-1.0The [facility] Comment on above:Performed By: #### LIPA #### [facility] [address] [address] [address] Ayden CamGlobulin (S) [Mass/Vol]2.4 g/dLNormalThe [facility] CenterComment on above:Performed By: #### LIPA #### [facility] [address] [address] [address] Ayden CamProtein [Mass/Vol]5.6 g/dLCritically low6.4-8.2The [facility] CenterComment on above:Performed By: #### LIPA #### [facility] [address] [address] [address] Ayden CamPROF CHEM 8 (BAS METB)on 49-05-3710Dpgus gap [Moles/Vol]6.8 mmol/LNormalThe [facility] CenterComment on above:Performed By: #### LIPA #### [facility] [address] [address] [address] Ayden CamCalcium [Mass/Vol]8.6 mg/dLNormal8.5-10.1[facility] Comment on above:Performed By: #### LIPA #### [facility] [address] [address] [address] Ayden CamChloride [Moles/Vol]102 mmol/UJbaiqz31-304Fjh [facility] Comment on above:Performed By: #### LIPA #### [facility] [address] [address] [address] Ayden CamCO2 [Moles/Vol]32.6 mmol/LCritically high21.0-32.0The [facility] CenterComment on above:Performed By: #### LIPA #### [facility] [address] [address] [address] Ayden CamCreatinine [Mass/Vol]0.61 mg/dLNormal0.55-1.02The [facility] CenterComment on above:Performed By: #### LIPA #### [facility] [address] [address] [address] Ayden KoehlerGFR-AF SAO TOMEAN>60Normal>=60The [facility] CenterComment on above:Performed By: #### LIPA #### [facility] [address] [address] [address] Ayden KoehlerGFR-NON AF SAO TOMEAN>60Normal>=60The [facility] CenterComment on above:Performed By: #### LIPA #### [facility] [address] [address] [address] Ayden CamGlucose [Mass/Vol]91 mg/kFEexnfz69-090RudDoctors Hospital Comment on above:Performed By: #### LIPA #### [facility] [address] [address] [address] Ayden CamPotassium [Moles/Vol]3.4 mmol/LCritically low3.5-5.1The [facility] CenterComment on above:Performed By: #### LIPA #### [facility] [address] [address] [address] Ayden CamSodium [Moles/Vol]138 mmol/NQlgbvv545-602Yhx [facility] Comment on above:Performed By: #### LIPA #### [facility] [address] [place] [address] Dr. Ayden Santos nitrogen [Mass/Vol]13.0 mg/dLNormal7.0-18.0The [facility] CenterComment on above:Performed By: #### LIPA #### [facility] [address] [place] [address] Dr. Ayden Santos nitrogen/Creatinine [Mass ratio]21.3 mg/mgNormalThe [facility] CenterComment on above:Performed By: #### LIPA #### [facility] [address] [place] [address] Dr. Ayden CamAMMONIAon 40-74-1337Tpoxnha (P) [Moles/Vol]10 umol/LCritically yxi94-70Vum [facility] CenterComment on above:Performed By: #### AMM #### [facility] [address] [place] [address] Dr. Ayden CamAMYLASEon 14-78-8465Zajrdvk [Catalytic activity/Vol]109 U/LNormal 25-115The [facility] CenterComment on above:Performed By: #### COLE #### [facility] [address] [place] [address] Dr. Ayden Abdul AUTO DIFFon 50-22-5082TJOO #0.0 103/ulNormal0.0-0.1The [facility] CenterComment on above:Performed By: #### LIPA #### [facility] [address] [place] [address] Dr. Ayden CamBasophils/100 WBC (Bld)0.3 %Normal0.2-2.0The [facility] Comment on above:Performed By: #### LIPA #### [facility] [address] [place] [address] Dr. Ayden Steele #0.3 103/ulNormal0.0-0.7The [facility] CenterComment on above: Performed By: #### LIPA #### [facility] [address] [address] [address] Ayden Koehlerosinophils/100 WBC (Bld)4.3 %Normal0.9-7.0The [facility] Comment on above:Performed By: #### LIPA #### [facility] [address] [place] [address] Dr. Ayden Koehlerrythrocyte distribution width (RBC) [Ratio]12.2 %Tbrgvy42.0-15.0 The [facility] CenterComment on above:Performed By: #### LIPA #### [facility] [address] [place] [address] Dr. Ayden CamHematocrit (Bld) [Volume fraction]38.9 %Gxgtpg13.0-48.0The [facility] CenterComment on above:Performed By: #### LIPA #### [facility] [address] [place] [address] Dr. Ayden CamHemoglobin (Bld) [Mass/Vol]12.8 g/nFKaebuj59.0-16.0The [facility] CenterComment on above:Performed By: #### LIPA #### [facility] [address] [place] [address] Dr. Ayden Dickson #0.01 10e3/ulNormal0.00-0.03The [facility] CenterComment on above:Performed By: #### LIPA #### [facility] [address] [place] [address] Dr. Ayden Dickson %0.2 %Normal0.0-0.5The [facility] CenterComment on above: Performed By: #### LIPA #### [facility] [address] [place] [address] Dr. Ayden PikeH #1.9 103/ulNormal1.2-3.8The [facility] CenterComment on above:Performed By: #### LIPA #### [facility] [address] [place] [address] Dr. Ayden Workmanmphocytes/100 WBC (Bld)31.4 %Bgquno94.5-60.0The [facility]rium Medical CenterComment on above:Performed By: #### LIPA #### [facility] [address] [place] [address] Dr. Ayden Melendez DIFF REQNONormalThe [facility] Medical CenterComment on above: Performed By: #### LIPA #### [facility] [address] [place] [address] Dr. Ayden Mccormack (RBC) [Entitic mass]29.6 utKwgumv03.7-34.0The [facility]athrop HospitalComment on above:Performed By: #### LIPA #### [facility] [address] [place] [address] Dr. Ayden Mccormack (RBC) [Mass/Vol]32.9 g/dCTopzns58.9-35.2The [facility] CenterComment on above:Performed By: #### LIPA #### [facility] [address] [place] [address] Dr. Ayden Mccormack (RBC) [Entitic vol]89.8 wWVsjuiz72.0-99.0The [facility] CenterComment on above:Performed By: #### LIPA #### [facility] [address] [place] [address] Dr. Ayden Thornton #0.6 103/ulNormal0.3-0.8The [facility] CenterComment on above:Performed By: #### LIPA #### [facility] [address] [place] [address] Dr. Ayden Atkinsonocytes/100 WBC (Bld)10.1 %Normal1.7-12.0The [facility] Comment on above:Performed By: #### LIPA #### [facility] [address] [place] [address] Dr. Ayden Garrett #3.2 103/ulNormal1.4-6.5The [facility] CenterComment on above:Performed By: #### LIPA #### [facility] [address] [place] [address] Dr. Ayden Hongutrophils/100 WBC (Bld)53.7 %Qdlino37.0-75.0The [facility] CenterComment on above:Performed By: #### LIPA #### [facility] [address] [place] [address] Dr. Ayden Jones mean volume (Bld) [Entitic vol]9.7 fLNormal9.5-13.5The [facility] CenterComment on above:Performed By: #### LIPA #### [facility] [address] [place] [address] Dr. Ayden CamPLT168 103/xoTwtyru100-808Bcx [facility] CenterComment on above: Performed By: #### LIPA #### [facility] [address] [place] [address] Dr. Ayden CamRBC4.33 106/ulNormal4.20-5.40The [facility] CenterComment on above:Performed By: #### LIPA #### [facility] [address] [place] [address] Dr. Ayden CamWBC6.0 103/ulNormal4.0-11.0The [facility] CenterComment on above: Performed By: #### LIPA #### [facility] [address] [place] [address] Dr. Ayden CamLIPASEon [id number] [Catalytic activity/Vol]151.0 U/LNormal 73.0-393.0The [facility] CenterComment on above:Performed By: #### LIPA #### [facility] [address] [place] [address] Dr. Ayden Asencio PROFILEon [id number] [Mass/Vol]3.2 g/dLCritically low3.4-5.0The [facility] CenterComment on above:Performed By: #### LACT #### [facility] [address] [place] [address] Dr. Ayden CamAlbumin/Globulin [Mass ratio]1.1 {ratio}NormalThe [facility] CenterComment on above:Performed By: #### LACT #### [facility] [address] [place], [place] [address] Dr. Ayden Tobar [Catalytic activity/Vol]82 U/YDhkvar27-996Jtw [facility] CenterComment on above:Performed By: #### LACT #### [facility] [address] [address] [address] Ayden CoburnT [Catalytic activity/Vol]70 U/LCritically udsg91-15Nva [facility] CenterComment on above:Performed By: #### LACT #### [facility] [address] [address] [address] Ayden CamAST [Catalytic activity/Vol]36 U/BVacknf26-22Wcc [facility] CenterComment on above:Performed By: #### LACT #### [facility] [address] [place] [address] Dr. Ayden Sears, CONJUGATED0.1 mg/dLNormal0.0-0.2The [facility] Comment on above:Performed By: #### LACT #### [facility] [address] [place] [address] Dr. Ayden Hackettirubin [Mass/Vol]0.3 mg/dLNormal0.2-1.0[facility] Comment on above:Performed By: #### LACT #### [facility] [address] [place] [address] Dr. Ayden CamGlobulin (S) [Mass/Vol]3.0 g/dLNormalThe [facility] CenterComment on above:Performed By: #### LACT #### [facility] [address] [place] [address] Dr. Ayden CamProtein [Mass/Vol]6.2 g/dLCritically low6.4-8.2The [facility] CenterComment on above:Performed By: #### LACT #### [facility] [address] [place] [address] Dr. Ayden CamPROF CHEM 8 (BAS METB)on [id number] gap [Moles/Vol]9.5 mmol/LNormalThe [facility] CenterComment on above:Performed By: #### BMP #### [facility] [address] [address] [address] Ayden CamCalcium [Mass/Vol]8.9 mg/dLNormal8.5-10.1The [facility] Comment on above:Performed By: #### BMP #### [facility] [address] [address] [address] Ayden CamChloride [Moles/Vol]105 mmol/PGrhiyu24-741DtiDoctors Hospital Comment on above:Performed By: #### BMP #### [facility] [address] [address] [address] Ayden CamCO2 [Moles/Vol]29.6 mmol/BEmxcqv33.0-32.0The [facility] Comment on above:Performed By: #### BMP #### [facility] [address] [place] [address] Dr. Ayden CamCreatinine [Mass/Vol]0.56 mg/dLNormal0.55-1.02The [facility] CenterComment on above:Performed By: #### BMP #### [facility] [address] [address] [address] Hensley ChangEGFR-AF SAO TOMEAN>60Normal>=60Doctors HospitalComment on above:Performed By: #### BMP #### [facility] [address] [place] [address] Dr. Ayden KoehlerGFR-NON AF SAO TOMEAN>60Normal>=60The [facility] CenterComment on above:Performed By: #### BMP #### [facility] [address] [address] [address] Ayden CamGlucose [Mass/Vol]88 mg/rQMqtmnt96-332UkcDoctors Hospital Comment on above:Performed By: #### BMP #### [facility] [address] [address] [address] Ayden CamPotassium [Moles/Vol]4.1 mmol/LNormal3.5-5.1The [facility] Comment on above:Performed By: #### BMP #### [facility] [address] [address] [address] Ayden Nguyendium [Moles/Vol]140 mmol/MHudfyj840-260PueDoctors Hospital Comment on above:Performed By: #### BMP #### [facility] [address] [address] [address] Ayden CamUrea nitrogen [Mass/Vol]15.0 mg/dLNormal7.0-18.0The [facility] CenterComment on above:Performed By: #### BMP #### [facility] [address] [address] [address] Ayden Santos nitrogen/Creatinine [Mass ratio]26.8 mg/mgNoThe Christ HospitalComment on above:Performed By: #### BMP #### [facility] [address] [address] [address] Ayden Hallman Jhony [id number] ABDEXAMINATION: US ABD HISTORY: Abdominal pain ; [...] Electronically authenticated by: RONAN TORIBIO Date: 2022-10-05 09:52[facility] CenterXR KUB 1 VIEWon [id number] KUB 1 VIEWEXAMINATION: XR KUB 1 VIEW [...] authenticated by: RONAN TORIBIO Date: 2022-10-05 09:55NormalThe [facility] Medical CenterAMYLASEon [id number] [Catalytic activity/Vol]124 U/L Critically ddvb96-084Xlv [facility] CenterComment on above:Performed By: #### LIPA, COLE, CMP #### [facility] [address] [address] [address] Ayden Abdul AUTO DIFFon [id number] #0.0 103/ulNormal0.0-0.1The [facility] CenterComment on above:Performed By: #### LIPA #### [facility] [address] [place] [address] Dr. Ayden Larsensophils/100 WBC (Bld)0.3 %Normal0.2-2.0[facility] Comment on above:Performed By: #### LIPA #### [facility] [address] [place] [address] Dr. Ayden Steele #0.2 103/ulNormal0.0-0.7The [facility] CenterComment on above: Performed By: #### LIPA #### [facility] [address] [place] [address] Dr. Ayden Koehlerosinophils/100 WBC (Bld)2.9 %Normal0.9-7.0The [facility] Comment on above:Performed By: #### LIPA #### [facility] [address] [place] [address] Dr. Ayden Koehlerrythrocyte distribution width (RBC) [Ratio]12.3 %Afwqqe42.0-15.0 The [facility] CenterComment on above:Performed By: #### LIPA #### [facility] [address] [place] [address] Dr. Ayden CamHematocrit (Bld) [Volume fraction]42.0 %Nzosgs39.0-48.0The [facility] CenterComment on above:Performed By: #### LIPA #### [facility] [address] [place] [address] Dr. Ayden CamHemoglobin (Bld) [Mass/Vol]14.3 g/bQWfpvmv99.0-16.0The [facility] HospitalComment on above:Performed By: #### LIPA #### [facility] [address] [place] [address] Dr. Ayden Dickson #0.02 10e3/ulNormal0.00-0.03The [facility] CenterComment on above:Performed By: #### LIPA #### [facility] [address] [place] [address] Dr. Ayden Dickson %0.3 %Normal0.0-0.5The [facility] CenterComment on above: Performed By: #### LIPA #### [facility] [address] [place] [address] Dr. Ayden Figueroa #1.7 103/ulNormal1.2-3.8The [facility] CenterComment on above:Performed By: #### LIPA #### [facility] [address] [place] [address] Dr. Ayden Pikehocytes/100 WBC (Bld)22.5 %Isginb58.5-60.0The [facility] CenterComment on above:Performed By: #### LIPA #### [facility] [address] [place] [address] Dr. Ayden ChinoUAL DIFF REQNONormalThe [facility] CenterComment on above: Performed By: #### LIPA #### [facility] [address] [place] [address] Dr. Ayden Salgado (RBC) [Entitic mass]30.1 wlOmmtrs10.7-34.0The [facility] CenterComment on above:Performed By: #### LIPA #### [facility] [address] [place] [address] Dr. Ayden Mccormack (RBC) [Mass/Vol]34.0 g/yYCrmlnb23.9-35.2The [facility] CenterComment on above:Performed By: #### LIPA #### [facility] [address] [place] [address] Dr. Ayden MccormackV (RBC) [Entitic vol]88.4 aBXpkjtf56.0-99.0The [facility] CenterComment on above:Performed By: #### LIPA #### [facility] [address] [place] [address] Dr. Ayden Thornton #0.5 103/ulNormal0.3-0.8The [facility] CenterComment on above:Performed By: #### LIPA #### [facility] [address] [place] [address] Dr. Ayden Atkinsonocytes/100 WBC (Bld)6.0 %Normal1.7-12.0The [facility] Comment on above:Performed By: #### LIPA #### [facility] [address] [place] [address] Dr. Ayden Garrett #5.2 103/ulNormal1.4-6.5The [facility] CenterComment on above:Performed By: #### LIPA #### [facility] [address] [place] [address] Dr. Ayden Hongutrophils/100 WBC (Bld)68.0 %Kclcbe31.0-75.0The [facility] CenterComment on above:Performed By: #### LIPA #### [facility] [address] [place] [address] Dr. Ayden Limonlet mean volume (Bld) [Entitic vol]9.6 fLNormal9.5-13.5The [facility] CenterComment on above:Performed By: #### LIPA #### [facility] [address] [place] [address] Dr. Ayden CamPLT183 103/raUffffy566-075Gxw [facility] CenterComment on above: Performed By: #### LIPA #### [facility] [address] [place] [address] Dr. Ayden CamRBC4.75 106/ulNormal4.20-5.40The [facility] CenterComment on above:Performed By: #### LIPA #### [facility] [address] [place] [address] Dr. Ayden CamWBC7.6 103/ulNormal4.0-11.0The [facility] CenterComment on above: Performed By: #### LIPA #### [facility] [address] [place] [address] Dr. Ayden CamCovid-19 PCR ([facility])on [id number]-CoV-2 (COVID-19) RNA LOWELL+probe Ql (Unsp spec)Not detectedNormalNOT DETECTEDThe [facility] Comment on above:Result Comment: When diagnostic testing [...] for this test is supported by the [employer] and Human Service's declaration that [...] longer be used).Performed By: #### LIPA #### [facility] [address] [place] [address] Dr. Hensley ChangEMegan URINE PROFILEon [id number] Ql (U)NegativeNormal NEGATIVEThe [facility] CenterComment on above:Performed By: #### LACT #### [facility] [address] [place] [address] Dr. Ayden CamClarity (U)CLEARNormalCLEARDoctors HospitalComment on above: Performed By: #### LACT #### [facility] [address] [address] [address] Ayden Santos (U)LT. YELLOWNormalYELLOWDoctors HospitalComment on above:Performed By: #### LACT #### [facility] [address] [address] [address] Ayden Pham micrscopic examination will be performed if indicated. NormalThe Nathrop HospitalComment on above:Performed By: #### LACT #### [facility] [address] [address] [address] Ayden CamGlucose Ql (U)NegativeNormalNEGATIVEDoctors HospitalComment on above:Performed By: #### LACT #### [facility] [address] [place] [address] Dr. Ayden CamHemoglobin Ql (U)NegativeNormalNEGATIVEMansfield Hospital on above:Performed By: #### LACT #### [facility] [address] [address] [address] Ayden CamKetones Ql (U)NegativeNormalNEGATIVEDoctors HospitalComment on above:Performed By: #### LACT #### [facility] [address] [place] [address] Dr. Ayden CamLEUKOCYTESNegativeNormalNEGATIVEDoctors HospitalComment on above:Performed By: #### LACT #### [facility] [address] [address] [address] Ayden CamNitrite Ql (U)NegativeNormalNEGATIVEDoctors HospitalComment on above:Performed By: #### LACT #### [facility] [address] [address] [address] Ayden CampH (U)8.5 [pH]Normal5-9Doctors HospitalComment on above: Performed By: #### LACT #### [facility] [address] [address] [address] Ayden CamSPEC GRAVITY1.812Lyxiwm4.005-<=1.025The [facility] CenterComment on above:Performed By: #### LACT #### [facility] [address] [place] [address] Dr. Ayden Clark PROTEINNegativeNormalNEGATIVE/ TRACEThe [facility] Comment on above:Performed By: #### LACT #### [facility] [address] [place] [address] Dr. Ayden Alcala MICRO INDNOT INDICATEDNormalThe [facility] CenterComment on above:Performed By: #### LACT #### [facility] [address] [place] [address] Dr. Ayden CamUrobilinogen Qn (U)0.2 {Peggy'U}/dLNormal0.2 - 1.0The [facility] CenterComment on above:Performed By: #### LACT #### [facility] [address] [place] [address] Dr. Ayden CamLACTATE/LACTIC ACIDon [id number] [Moles/Vol]0.8 mmol/L Normal0.4-1.9The [facility] CenterComment on above:Performed By: #### LACT #### [facility] [address] [place] [address] Dr. Ayden CamLIPASEon 70-04-0452Caggmp [Catalytic activity/Vol]170.0 U/LNormal 73.0-393.0The [facility] CenterComment on above:Performed By: #### LACT #### [facility] [address] [place] [address] Dr. Ayden CamPROF 14(COMP METB)on [id number] [Mass/Vol]3.8 g/dLNormal 3.4-5.0The [facility] CenterComment on above:Performed By: #### LACT #### [facility] [address] [place] [address] Dr. Ayden CamAlbumin/Globulin [Mass ratio]1.1 {ratio}NormalThe [facility] CenterComment on above:Performed By: #### LACT #### [facility] [address] [address] [address] Ayden CoburnP [Catalytic activity/Vol]101 U/LWlzfdq40-769Tyv [facility] CenterComment on above:Performed By: #### LACT #### [facility] [address] [address] [address] Ayden CoburnT [Catalytic activity/Vol]94 U/LCritically ingc33-15Osg [facility] CenterComment on above:Performed By: #### LACT #### [facility] [address] [address] [address] Ayden Terrell gap [Moles/Vol]11.1 mmol/LNormalThe [facility] Comment on above:Performed By: #### LACT #### [facility] [address] [address] [address] Ayden CamAST [Catalytic activity/Vol]59 U/LCritically eswb55-85Aaf [facility] CenterComment on above:Performed By: #### LACT #### [facility] [address] [place] [address] Dr. Ayden CamBilirubin [Mass/Vol]0.3 mg/dLNormal0.2-1.0The [facility] Comment on above:Performed By: #### LACT #### [facility] [address] [place] [address] Dr. Ayden CamCalcium [Mass/Vol]9.5 mg/dLNormal8.5-10.1[facility] Comment on above:Performed By: #### LACT #### [facility] [address] [place] [address] Dr. Ayden CamChloride [Moles/Vol]99 mmol/MNsdket12-195Nrt [facility] Comment on above:Performed By: #### LACT #### [facility] [address] [address] [address] Ayden CamCO2 [Moles/Vol]29.7 mmol/YHjeylk75.0-32.0The [facility] Comment on above:Performed By: #### LACT #### [facility] [address] [place] [address] Dr. Ayden Cuellaratinine [Mass/Vol]0.61 mg/dLNormal0.55-1.02The [facility] CenterComment on above:Performed By: #### LACT #### [facility] [address] [place] [address] Dr. Ayden KoehlerGFR-AF SAO TOMEAN>60Normal>=60The [facility] CenterComment on above:Performed By: #### LACT #### [facility] [address] [address] [address] Ayden KoehlerGFR-NON AF SAO TOMEAN>60Normal>=60The [facility] CenterComment on above:Performed By: #### LACT #### [facility] [address] [place] [address] Dr. Ayden CamGlobulin (S) [Mass/Vol]3.4 g/dLNormalThe [facility] CenterComment on above:Performed By: #### LACT #### [facility] [address] [place] [address] Dr. Ayden CamGlucose [Mass/Vol]111 mg/dLCritically ihhz78-678Flw [facility] CenterComment on above:Performed By: #### LACT #### [facility] [address] [place] [address] Dr. Ayden CamPotassium [Moles/Vol]3.8 mmol/LNormal3.5-5.1[facility] Comment on above:Performed By: #### LACT #### [facility] [address] [place] [address] Dr. Ayden CamProtein [Mass/Vol]7.2 g/dLNormal6.4-8.2The [facility] Comment on above:Performed By: #### LACT #### [facility] [address] [place] [address] Dr. Ayden CamSodium [Moles/Vol]136 mmol/NXgutcf945-597Mlu [facility] Comment on above:Performed By: #### LACT #### [facility] [address] [place] [address] Dr. Ayden CamUrea nitrogen [Mass/Vol]23.0 mg/dLCritically high7.0-18.0Doctors HospitalComment on above:Performed By: #### LACT #### [facility] [address] [place] [address] Dr. Ayden CamUrea nitrogen/Creatinine [Mass ratio]37.7 mg/mgAdena Fayette Medical CenterComment on above:Performed By: #### LACT #### [facility] [address] [place] [address] Dr. Ayden Negrete, HIGH SENSITIVITYon 68-48-2243RQRVQT1.9 pg/mLNormal 4.0-51.3The [facility] CenterComment on above:Result Comment: CUT-OFF POINTS HAVE BEEN ESTABLISHED BASED ON THE FOURTH UNIVERSAL DEFINITIONS OF MYOCARDIAL INFARCTION. THE UPPER REFERENCE LIMIT (URL) OF TROPONIN, DEFINED THE 99TH PERCENTILE OF cTnI DISTRIBUTION IN A REFERENCE POPULATION, HAS BEEN CONFIRMED THE DECISION THRESHOLD FOR ID DIAGNOSIS.Performed By: #### LACT #### [facility] [address] [place] [address] Dr. Ayden CamLIPID PROFILEon [id number]-HDL RATIO NORMSMarion HospitalComment on above:Result Comment: 3.3 - 4.4 LOW RISK 4.4 - 7.1 AVERAGE RISK 7.1 - 11.0 MODERATE RISK >11.0 HIGH RISKPerformed By: #### LIPA #### [facility] [address] [place] [address] Dr. Ayden CamCholesterol [Mass/Vol]116 mg/dLNormal<=200[facility] Comment on above:Performed By: #### LIPA #### [facility] [address] [place] [address] Dr. Ayden CamCholesterol in HDL [Mass/Vol]59 mg/yKKsahhk80-66XiaDoctors HospitalComment on above:Performed By: #### LIPA #### [facility] [address] [place] [address] Dr. Ayden Leroyesterol in LDL [Mass/Vol]34.0 mg/dLAdena Fayette Medical CenterComment on above:Performed By: #### LIPA #### [facility] [address] [address] [address] Ayden CamCholesterol.total/Cholesterol in HDL [Mass ratio]2.0 {ratio} NormalDoctors HospitalComment on above:Performed By: #### LIPA #### [facility] [address] [address] [address] Ayden CostelloL NORMAL> or = 60 mg/dl - LOW CARDIOVASCULAR RISK <40 mg/dl - HIGH CARDIOVASCULAR RISKAdena Fayette Medical CenterComment on above:Performed By: #### LIPA #### [facility] [address] [address] [address] Ayden CamLDL CALC NORMALSEE [facility] HospitalComcorewell health green[facility] hospital on above:Result Comment: <100 mg/dl OPTIMAL 100 - 129 mg/dl NEAR OR ABOVE OPTIMAL 130 - 159 mg/dl BORDERLINE HIGH 160 - 189 mg/dl HIGH >190 mg/dl VERY HIGH Performed By: #### LIPA #### [facility] [address] [place] [address] Dr. Ayden CamTriglyceride [Mass/Vol]115 mg/dLNormal<=150[facility] Comment on above:Performed By: #### LIPA #### [facility] [address] [place] [address] Dr. Ayden CamVLDL CALC23.0 mg/dLNoThe Christ HospitalComment on above: Performed By: #### LIPA #### [facility] [address] [address] [address] Ayden CamVITAMIN D 25 OHon 80-76-8863LOQ D 25-OH89.3 ng/mLNormalDoctors HospitalComcorewell health greenville hospital on above:Performed By: #### VITAD #### [facility] [address] [place] [address] Dr. Ayden CamVIT D RANGESSEE [facility] HospitalComment on above: Result Comment: <20 ng/mL Vit D deficient 20 - <30 ng/mL Vit D insufficient 30 - 100 ng/mL Vit D sufficient >100 ng/mL Potential ToxicityPerformed By: #### VITAD #### [facility] [address] [address] [address] Ayden Farrell Visit (Cardiology)on 82-02-9854Vygezv-up visit Diagnoses/Problems Assessed Atherosclerosis of coronary artery of [place] heart without angina pectoris (414.01) (I25.10) History of coronary artery bypass graft (V45.81) (Z95.1) Ischemic cardiomyopathy (414.8) (I25.5) Hyperlipidemia (272.4) (E78.5) Essential hypertension, benign (401.1) (I10) Never a smoker Overweight with body mass index (BMI) of 26 to 26.9 in adult (278.02,V85.22) (E66.3,Z68.26) Paroxysmal SVT (supraventricular tachycardia) (427.0) (I47.1) Orders Atherosclerosis of coronary artery of [place] heart without angina pectoris, Essential hypertension, benign, Hyperlipidemia Basic Metabolic Panel; Status:Active - Retrospective Authorization; Requested for:24Chp2253; Lipid Panel; Status:Active - Retrospective Authorization; Requested for:93Bpn0949; Overweight with body mass index (BMI) of 26 to 26.9 in adult Healthy Weight Tips; Status:Complete - Retrospective Authorization; Done: 23Cst9344 Some eating tips that can help you lose weight.; Status:Complete - Retrospective Authorization; Done: [id number] SocHx: Never a smoker Tobacco Use Screening; Status:Complete; Done: [id number] Patient Instructions Please bring all medicines, vitamins, [...] She has a history of prior inferior ID, prior PCI with subsequent three-vessel CABG and [...] CHEST PAIN.CALL 911 IF PAIN PERSISTS. Nyamyc [id number] UNIT/GM External Powderapply topically to affected area [...] s (more content not included)...NormalUH TouchworksTobacco Screening.on 22-03-7801Ytjne depression screening assessmentNoProv[facility] [employer] DO Work Phone: Fall risk assessmenta) No falls within the last year [facility] Bright[employer] DO Work Phone: Tobacco use status CPHSb) NoMJefferson Healthcare Hospital [employer] DO Work Phone: MRI Ankle w/o Lefton 13-89-1566EJW Ankle w/o Left HISTORY: Dog jumped on [...] and signed by Wilder Arango on 08/01/2022 1102NormalNortParkview Health SpecialistTobacco Screening.on 57-87-6692Yekumuz use status CPHSb) [facility] [address] DO Work Phone: Vital Signs Date TimeVital SignValuePerforming SqhwczxnnGopobqak43-91-3431 11:45-0400Body cmMattmalik RINALDI Work Phone: NOSaint John's Regional Health CenterScsaicblwe43-41-6499 11:45-0400Body mass index (BMI) [Ratio]30.82 kg/s4Mnfcjyslilli RINALDI Work Phone: NOSaint John's Regional Health CenterMswbqyteeh13-59-2174 11:45-0400Body aumdir87.93 kgMalilli RINALID Work Phone: [facility] CareEhsmjffkjp56-40-1780 09:53-0500Body cm Celso Garibay DO Work Phone: [facility]12-06-2024 09:53-0500 Body mass index (BMI) [Ratio]30.11 kg/q1EsxmgxfCelso Garibay DO Work Phone: [facility]12-06-2024 09:53-0500 Body .11 kgCelso Garibay DO Work Phone: [facility]12-06-2024 09:53-0500 Diastolic blood yykrpppp92 mm[Hg]Celso Garibay DO Work Phone: [facility]12-06-2024 09:53-0500 Heart rate66 /minCelso Garibay DO Work Phone: [facility]12-06-2024 09:53-0500 Systolic blood xyjpfuyr451 mm[Hg]Celso Cintrondon DO Work Phone: [phone]11-19-2024 01:03-0500 Diastolic blood owbsajqh46 mm[Hg]Ashley Grigsby MD Work Phone: 1(534)[address]11-19-2024 01:03-0500 Heart rate60 /Alfonso Grigsby MD Work Phone: 1(143)755[address]11-19-2024 01:03-0500 Respiratory rate20 /Alfonso Grigsby MD Work Phone: 1(693)[address]11-19-2024 01:03-0500 SaO2% (BldA) [Mass fraction]96 %Ashley Grigsby MD Work Phone: 1(789)[address]11-19-2024 01:03-0500 Systolic blood effwklzy764 mm[Hg]Ashley Grigsby MD Work Phone: 1(671)377-[address] [place], [place] [address]872911-18-2024 20:55-0500 Body .02 cmAshley Grigsby MD Work Phone: 1(588)[address]11-18-2024 20:55-0500 Body gpjyfemicyw66.4 [degF]Ashley Grigsby MD Work Phone: 1(991)62588 [address]11-18-2024 20:55-0500 Body znhxup16.5 kgAshley Grigsby MD Work Phone: 1(696)[address]11-13-2024 12:21-0500 Body cmCelso Garibay DO Work Phone: [facility]11-13-2024 12:21-0500 Body mass index (BMI) [Ratio]30.47 kg/p9XsnbvqdCelso Garibay DO Work Phone: [phone]11-13-2024 12:21-0500 Body fiilnb36.02 kgWideshaun Garibay DO Work Phone: [facility]11-13-2024 12:21-0500 Diastolic blood ctpyzmbm69 mm[Hg]Celso Garibay DO Work Phone: [facility]11-13-2024 12:21-0500 Heart rate76 /Evan Garibay DO Work Phone: [facility]11-13-2024 12:21-0500 Systolic blood ngucwchw686 mm[Hg]Celso Garibay DO Work Phone: [facility]11-05-2024 11:08-0500 Blood Pressure LocationJENNIFER SALENA [facility]11-05-2024 11:08-0500Body wjfkorddahd58.6 [degF] SALENA [facility]11-05-2024 11:08-0500Diastolic blood hojvlczt90 mm[Hg] SALENA [facility]11-05-2024 11:08-0500Heart rate68 /minJENNIFER SALENA [facility]11-05-2024 11:08-0500Respiratory rate16 /minJENNIFER SALENA [facility]11-05-2024 11:08-0500Systolic blood yxmbwygk434 mm[Hg] SALENA [facility]07-11-2024 15:08-0400Blood Pressure LocationJENNIFER SALENA [facility]07-11-2024 15:08-0400Diastolic blood pppjssti60 mm[Hg]JENNIFER MARTINO [facility]07-11-2024 15:08-0400Heart rate75 /minJENNIFER SALENA [facility]07-11-2024 15:08-0400Respiratory rate16 /minJENNIFER SALENA [facility]07-11-2024 15:08-0400Systolic blood aiidznfr053 mm[Hg]JENNIFER MARTINO [facility]05-31-2024 11:15-0400Body dqzrab[address] 02-29-2024 11:15-0400Body mass index (BMI) [Ratio]29.58 kg/j7Fhewx[address]05-31-2024 11:15-0400Body .[address]04-18-2024 16:03-0400Body vtcyfa296.3 cmStephanie Berger MD PhD Work Phone: [facility]04-18-2024 16:03-0400Body mass index (BMI) [Ratio]30.16 kg/p2XdvhxStephanie Berger MD PhD Work Phone: [facility]04-18-2024 16:03-0400Body .47 kgStephanie Berger MD PhD Work Phone: [facility]11-14-2023 15:29-0500Body ofxzvj384.3 cmCelso Garibay DO Work Phone: [facility]11-14-2023 15:29-0500 Body mass index (BMI) [Ratio]28.07 kg/h9LmptnwzCelso Garibay DO Work Phone: [facility]11-14-2023 15:29-0500 Body myyfuw02.03 kgWideshaun Garibay DO Work Phone: [facility]11-14-2023 15:29-0500 Diastolic blood otycfxan82 mm[Hg]Celso Garibay DO Work Phone: [facility]11-14-2023 15:29-0500 Heart rate56 /minWideshaun Garibay DO Work Phone: [facility]11-14-2023 15:29-0500 Systolic blood cahrhpgg407 mm[Hg]Celso Garibay DO Work Phone: [facility]09-18-2023 15:15-0400 Diastolic blood eurovqej93 mm[Hg]Gaby Jenkinsy Tello DO Work Phone: [employer]09-18-2023 15:15-0400Heart rate70 /minElpidiomen Deuce Tello DO Work Phone: [employer]09-18-2023 15:15-0400 Respiratory rate18 /minCarmen Deuce Tello DO Work Phone: [employer]09-18-2023 15:15-7983IiO3% (BldA) [Mass fraction]96 %Gaby Deuce Tello DO Work Phone: [employer]09-18-2023 15:15-0400Systolic blood lzfazrrv382 mm[Hg]Gaby Deuce Tello DO Work Phone: [employer]09-18-2023 14:36-0400Body owacsrqolod29 [degF]Gaby Deuce Tello DO Work Phone: [employer]09-18-2023 13:30-0400Body imyhsy024 cmCarmen Deuce Tello DO Work Phone: [employer]09-18-2023 13:30-0400Body mass index (BMI) [Ratio]27.03 kg/a4Kjgpkk Deuce Tello DO Work Phone: [facility]09-18-2023 13:30-0400Body suwisp33.22 kgCarkizzy Tello DO Work Phone: [facility]02-02-2023 15:02-0500Diastolic blood vialglrl76 mm[Hg]MD Ashley Grigsby Work Phone: 1(367)704-[address] [place], [place] 7872902-02-2023 15:02-0500 Heart rate78 /minMD Ashley Gordilloy Work Phone: 1(177)063-[address] [place], [place] 7872902-02-2023 15:02-0500 Respiratory rate18 /minMD Ramirez Hoy Work Phone: 1(840)[facility]-[address] [place], [place] 787[address]02-02-2023 15:02-0500 SaO2% (BldA) [Mass fraction]100 %MD Ashley Grigsby Work Phone: 1(311)[facility]-[address] [place], [place] [address]87[address]02-02-2023 15:02-0500 Systolic blood ldwdomch965 mm[Hg]MD Ashley Grigsby Work Phone: 1(240)226-[address] [place], [place] [address]872902-02-2023 13:20-0500 Body bsuptr390.02 cmMD Ashley Hoy Work Phone: 1(815)[facility]-[address] [place], [place] [address]87[address]02-02-2023 13:20-0500 Body iqhxsvzqisq23.2 [degF]MD Ashley Grigsby Work Phone: 1(922)[facility]-[address] [place], [place] [address]87[address]02-02-2023 13:20-0500 Body kykdzd31.78 kgMD Ashley Grigsby Work Phone: 1(900)[address]02-01-2023 13:26-0500 Diastolic blood fjqyyelj74 mm[Hg]MD Ashley Grigsby Work Phone: 1(367)[facility]-[address] [place], [place] [address]87[address]02-01-2023 13:26-0500 Heart rate59 /minMD Ashley Grigsby Work Phone: 1(516)[address]888 [address]02-01-2023 13:26-0500 Respiratory rate20 /minMD Ashley Gordilloy Work Phone: 1(981)224-[address] [place], [place] [address]87[address]02-01-2023 13:26-0500 SaO2% (BldA) [Mass fraction]99 %MD Ashley Grigsby Work Phone: 1(028)558-[address] [place], [place] 7872902-01-2023 13:26-0500 Systolic blood bhkanuzp043 mm[Hg]MD Ashley Grigsby Work Phone: 1(859)878-[address] [place], [place] 7872902-01-2023 10:53-0500 Body hmnugs984.02 cmMD Ashley Grigsby Work Phone: 1(594)858-[address] [place], [place] [address]87[address]02-01-2023 10:53-0500 Body vhkkgttsspo17.7 [degF]MD Ashley Grigsby Work Phone: 1(876)230-[address] [place], [place] [address]87[address]02-01-2023 10:53-0500 Body urmbdj53.68 kgMD Ashley Grigsby Work Phone: 1(686)[address]88 [address]01-24-2023 15:45-0500 Body uaqran534.38 cmImad Asaad Other [employer] Other 01-24-2023 15:45-0500Body mass index (BMI) [Ratio] 24.28 kg/m2Imad Asaad Other [employer] Other 01-24-2023 15:45-0500Body qzaxed12.69 kgImad Asaad Other [employer] Other 01-24-2023 15:45-0500Diastolic blood jzwapgkz30 mm[Hg] Imad Asaad Other [employer] Other 01-24-2023 15:45-0500Systolic blood yhvhggqx871 mm[Hg] Imad Asaad Other [employer] Other 12-20-2022 00:00-617187 1Douglas M Hoy Work Phone: 1(673)[phone]-Oxpkc [facility] DO Work Phone: Comment on above:HVLMC74-79-1657 15:23-0500Body height 160.02 cmDougcholo Clements Hoy Work Phone: 1([phone]-Rujyf [facility] DO Work Phone: 1(565) 910-600511-15-2022 15:23-0500Body mass index (BMI) [Ratio] 26.22 kg/o9Sacjaoj M Hoy Work Phone: 1([phone]-Soquh [facility] [address] DO Work Phone: 1(244) 474-111411-15-2022 15:23-0500Body surface area Derived from formula1.7 t4Iimcjfc M Hoy Work Phone: 1([phone])[phone]-Uaffc [facility] DO Work Phone: 1(113) 432-254511-15-2022 15:23-0500Body .13 kgDougcholo Clements Hoy Work Phone: 1(628)[phone]-Thtot [facility] DO Work Phone: 1(386) [phone] 15:23-0500Diastolic blood hzqdogoz79 mm[Hg] Ashley M Hoy Work Phone: [phone]-Koire [facility] DO Work Phone: 1(167) 666-410011-15-2022 15:23-0500Heart rate80 /minDouglas M Hoy Work Phone: 1(535)[phone]-Cwwbo [facility] DO Work Phone: 1(245) 259-119311-15-2022 15:23-0500Systolic blood luqdhwqc696 mm[Hg] Ashley M Hoy Work Phone: 1(983)[phone]-Jqppw [facility] DO Work Phone: 1(203) 269-117409-02-2022 08:12-0400Blood Pressure LocationPatrick CARRILLO [facility]09-02-2022 08:12-0400Diastolic blood zcnbjtej42 mm[Hg]Santiago CARRILLO [facility]09-02-2022 08:12-0400Heart rate60 /minPatrick CARRILLO [facility]09-02-2022 08:12-0400Respiratory rate16 /minPatrick CARRILLO [facility]09-02-2022 08:12-0400Systolic blood tcreeojt451 mm[Hg]Santiago CARRILLO [facility]11-17-2021 09:47-0500Body jwbifv828.02 cmDougcholo Clements Hoy Work Phone: 1([phone]-Vpjbi [facility] [address] DO Work Phone: 1(091)[phone] 09:47-0500Body mass index (BMI) [Ratio] 25.01 kg/v7Bvrluog M Hoy Work Phone: [phone]-Mioog [facility] DO Work Phone: 1(880)[phone] 09:47-0500Body surface area Derived from formula1.67 h7Jctgjac M Hoy Work Phone: [phone]-Yqvpg [facility] [address] DO Work Phone: 1(003)[phone] 09:47-0500Body dsobkr32.05 kgDouglas M Hoy Work Phone: 1(385)[phone]-Ecrei [facility] DO Work Phone: 1(418)[phone] 09:47-0500Diastolic blood upzsyuif47 mm[Hg] Ashley Elias Hoy Work Phone: 1(042)[phone]-Oczol [facility] [address] DO Work Phone: 1(122)[phone] 09:47-0500Heart rate72 /minDouglkimberly Clements Hoestefani Work Phone: 1(092)[phone]-Tehcg [facility] DO Work Phone: 1(592) 725-232711-17-2021 09:47-0500Systolic blood knpcexjn609 mm[Hg] Ashley Grigsby Work Phone: 1([phone]-Obbxe [facility] DO Work Phone: Encounters Encounter DateEncounter TypeCare ProviderFacilityStart: 04-66-1199glsrzetnia Santiago CARRILLOFacility:EU BellevueStart: 06-23-2025 End: 05-19-4935Ckejjx flowsheetJr. Bridgett Vann Stepanic DO Work Phone: [facility] [place] [facility]opaedicsStart: 06-23-2025 End: 49-24-5204Xfcjqp flowsheetJr. Bridgett Vann Stepanic DO Work Phone: [facility] [place] [facility]opaedicsStart: 06-23-2025 End: 49-93-1140dvbquubxsrNB., BRIDGETT Jones AvailableStart: 06-23-2025 End: 18-09-9706Ayflzv outpatient visit 15 minutesJr. Bridgett Sinha DO Work Phone: [facility] [place] OrthopaedicsComment on above:Tendonitis of wrist, right; Right wrist painStart: 06-16-2025 End: 34-40-2905rimngicgjcAE., BRIDGETT Jones AvailableStart: 06-02-2025 End: 40-16-4666Nwbnxd flowsheetJr. Bridgett Vann Stepanic DO Work Phone: [facility] [place] [facility]opaedicsStart: 06-02-2025 End: 43-31-8868Hytqsv flowsheetJr. Bridgett Vann Stepanic DO Work Phone: [facility] [place] [facility]opaedicsStart: 06-02-2025 End: 12-00-2794Drjtav outpatient visit 15 minutesJr. Bridgett Angelanic DO Work Phone: [facility] [place] OrthopaedicsComment on above:Chronic pain of right wristStart: 06-02-2025 End: 99-04-8954qyalgmtutqBX., BRIDGETT Jones AvailableStart: 05-27-2025 End: 24-68-3685Fvbzwgn encounter procedureRae Louie MD Work Phone: [facility] 111Comment on above:Numbness (Primary Dx); Paresthesias; Carpal tunnel syndrome, leftStart: 05-27-2025 End: 20-14-8573yvfvbsibthYGGL D BEJNot AvailableStart: 05-15-2025 End: 94-35-0429Wmnxas flowsAlfonzo RINALDI Work Phone: [facility] [place] [facility]opaedicsStart: 05-15-2025 End: 66-77-7482Hqizylcielo RINALDI Work Phone: [facility] [place] [facility]opaedicsStart: 05-15-2025 End: 45-48-0116fkkmzzrzooFOLZCOB J MEYERNot AvailableStart: 05-15-2025 End: 24-51-5459Ksdclf outpatient visit 15 minutesMalilli RINALDI Work Phone: [facility] [place] OrthopaedicsComment on above:Right wrist pain (Primary Dx); Arm weakness; Numbness; Arm pain, right; Ulnar neuropathy of right upper extremityStart: 05-08-2025 End: 87-50-9638gyycmrvhnsQPYCincinnati Shriners Hospitaltart: 01-30-2025 End: 37-13-6982lrdltwjdrkKDNCincinnati Shriners Hospitaltart: 01-17-2025 End: 68-55-6062odbxdeuhyuVIL Awais Dia [facility] Centertart: 01-09-2025 End: 86-33-2136ljpsebunkkYTW [facility] Healthtart: 12-31-2024 End: 40-18-6658hlgschpzajHPUCincinnati Shriners Hospitaltart: 12-12-2024 End: 12-11-5750ulqderewldSPL [facility] CenterStart: 11-26-2024 End: 90-81-1398Sxcyjg flowsheetRaji RINALDI Work Phone: [facility] FB ORTHOPAEDICSStart: 11-26-2024 End: 18-36-6565Ykpthp flowsAlfonzo RINALDI Work Phone: [facility] FB ORTHOPAEDICSStart: 11-26-2024 End: 63-99-6746Nodawi outpatient visit 15 minutesMalilli RINALDI Work Phone: noms FB ORTHOPAEDICSComment on above:Acute pain of right wrist (Primary Dx); Tendonitis of wrist, rightStart: 11-26-2024 End: 67-55-2879dxhzoakbsySZHASYV J MEYERNot AvailableStart: 10-11-2024 End: 80-22-0469xjbtexyobeFNEGGBarney Children's Medical Centertart: 09-05-2024 End: 30-27-0815vceqvckuvmHHCBBDKMountain View Regional Medical Center AmbulatoryStart: 09-05-2024 End: 25-58-7815Agisivpvohgu care manage srvc [facility] Work Phone: [facility] CenterComment on above:Atherosclerosis of coronary artery bypass graft of [place] heart without angina pectoris; S/P PTCA (percutaneous transluminal coronary angioplasty); History of coronary artery bypass graft; Ischemic cardiomyopathy; Essential hypertension; Mixed hyperlipidemia; BMI 30.0-30.9,adult; Statin intoleranceStart: 08-20-2024 End: 88-91-8052Cosagcgtjw and management of inpatientSmatias Arroyo Facility:[facility] Hospitaltart: 02-32-6582Sgkdrbuuyv and management of inpatientAshley Grisgby MD Work Phone: [facility] [place] [facility] Work Phone: Start: 10-45-4418xjlbkpbxmzg encounterAshley Grigsby MD Work Phone: [facility] Work Phone: start: 08-13-2024 End: 64-28-8326xbprfhxealZJCCACO S [facility] AmbulatoryStart: 08-13-2024 End: 43-99-1214Voxsbs outpatient visit 25 shaw hospitalCelso Garibay DO Work Phone: uh [facility] HarrisburgComment on above:Atherosclerosis of coronary artery of [place] heart without angina pectoris, unspecified vessel or lesion type; History of coronary artery bypass graft; Essential hypertension, benign; Hyperlipidemia, unspecified hyperlipidemia type; Acute pancreatitis, unspecified complication status, unspecified pancreatitis type ([facility])Start: 08-05-2024 End: 45-19-4882cqywofushzOEMoraima MARTINOFacility:ROMELIA [facility] HospitalueStart: 08-05-2024 End: 54-56-1923Tkeouds encounter procedureJENNIFER E SALENA [facility] [employer] start: 04-10-2024 End: 03-32-0849Klosaqm encounter procedureJENNIFER E SALENA [facility] [employer] start: 03-11-2024 End: 88-39-0089Jkarjyh encounter procedureJENNIFER E SALENA [facility] HospitalGoodClic start: 03-07-2024 End: 62-21-1911Gdctcdcfkh and management of inpatientJOHN A JANESProMedica Obando HospitalStart: 03-06-2024 End: 41-26-4536Dnljavwdos and management of inpatientYASEEN S ALASTALProMedica Obando HospitalStart: 03-06-2024 End: 65-73-3321Txitnupxas and management of inpatientYASEEN S ALASTALProMedica Obando HospitalStart: 02-29-2024 End: 68-15-1200Gokzvkxfbx and management of inpatientDOUGLAS M HOYProMedica Leawood HospitalStart: 02-29-2024 End: 94-67-0941Fyefghzvs to [facility] medical centerMet Pat Phone Call Provider 4 Aarti [facility] Beachtart: 02-14-2024 End: 28-75-1282Gxhlhn Avani Berger MD PhD Work Phone: [facility], Nose and ThroatComment on above:Xerostomia (Primary Dx)Start: 01-17-2024 End: 68-48-5181hidbdknsrpYIONC M WILLIAMSSt. [facility] Ambulatory PPGStart: 01-17-2024 End: 94-94-2224Ftaqws outpatient visit 15 Sahil Berger MD PhD Work Phone: [facility] Ear, Nose and ThroatComment on above:Dry nose (Primary Dx); Xerostomia; Allergic rhinitis, unspecified seasonality, unspecified triggerStart: 08-14-2023 End: 44-62-6154Ekvkfu outpatient visit 15 Becca Garibay DO Work Phone: [facility] CenterComment on above:Atherosclerosis of coronary artery of [place] heart without angina pectoris, unspecified vessel or lesion type; History of coronary artery bypass graft; Ischemic cardiomyopathy; Essential hypertension, benignStart: 06-18-2023 End: 16-45-8253jerwueahubIWYVZLZahira De Souza Harwood HospitalStart: 06-18-2023 End: 79-49-3726Gpscaoffqb hospital visit by Dipika Tello DO Work Phone: mthz ORComment on above:Post-menopausal bleeding; Inclusion cystStart: 42-25-2427Hh RenewalAshley Grigsby Work Phone: [phone]-Kpaqu [facility] DO Work Phone: Start: 59-39-9685Rhriybj encounter procedureAshley Grigsby Work Phone: [phone]-Xschq [facility] DO Work Phone: Start: 24-46-3027fhpzlhbsinAWXSARL M DUYYMpraful [facility]itan Hospitaltart: 12-12-2022 End: 22-83-8707qmpryufjdgVC Ashley M Hoy Work Phone: [facility] Work Phone: Start: 12-12-2022 End: 94-82-2132Qgvcmvb encounter procedureMD Ashley Hoy Work Phone: [facility] Work Phone: Start: 11-20-2022 End: 04-00-2874kdcglaljojNuko Asaad Other [employer] Other Start: 95-22-8874Gdlwdcvow encounterImad AsaadFPG GastroenterologyStart: 11-10-2022 End: 32-49-1718Vbcnewn encounter procedureMD Ashley Hoy Work Phone: [facility] [place] Work Phone: Start: 11-02-2022 End: 23-98-1724Xnmxshpuw to same day surgery centerMD Ashley Hoy Work Phone: [facility] Work Phone: Start: 11-02-2022 End: 37-94-4847jelybsduagKH Ashley M Hoy Work Phone: [facility] Work Phone: Start: 99-82-1397Grotpyxkm encounterImad AsaadFPG GastroenterologyStart: 11-01-2022 End: 78-44-0351Zmbvfhogf to same day surgery centerMD Ashley Hoy Work Phone: [facility] Work Phone: Start: 11-01-2022 End: 55-18-9616aoxvkvdlslJU Ashley M Hoy Work Phone: [facility] Work Phone: Start: 10-24-2022 End: 51-63-9321kiugcinaueVmix Asaad Other [facility] [employer] Other Start: 24-97-1510OZEW visit new patientImapilo AsaadFPG GastroenterologyStart: 10-16-2022 End: 19-00-6304odystgznetCW ASHLEY HOYFacility:V3Fvcnd: 10-09-2022 End: 58-24-9921kmtmthtzimEB ASHLEY HOYFacility:R4Qjhav: 87-87-0073Fc Renewal Ashley Grigsby Work Phone: [phone]-Buifk [facility] DO Work Phone: Start: 10-04-2022 End: 23-49-4383pjlgyjjzwoQQ ASHLEY HOYFacility:C6Hqmib: 09-19-2022 End: 06-67-0738lzkmhwryjgEN DOCTOR MISCFacility:W3Sifle: 58-39-4396Enhtxm outpatient visit 15 minutesDodonn Grigsby Work Phone: [phone]-Cmlgn [facility] DO Work Phone: Start: 64-57-7463Bnkzucd encounter procedureAshley Grigsby Work Phone: [phone]-Jayzh [facility] DO Work Phone: Start: 06-02-2022 End: 84-31-5715Ordljgz encounter procedureSantiago CARRILLO [facility] start: 95-07-0544Rn RenewalAshley [place]igs[place] Work Phone: [phone]-Ycrky [facility] 250 DO Work Phone: Start: 02-07-2022 End: 56-19-4822Ppcjcrf encounter procedureAshley Grigsby MD Work Phone: [facility] LaboratoryStart: 02-07-2022 End: 00-28-3010Albcwdgdgx hospital visit by Lea Grigsby MD Work Phone: mthz LaboratoryComment on above:Women's annual routine gynecological examinationStart: 45-88-8957Tz RenewalDodonn Clements Duyestefani Work Phone: [phone]-Waaxj [facility] [facility] DO Work Phone: Start: 06-33-6953Tttvli outpatient visit 15 minutes Ashley Grigsby Work Phone: [phone]-Laxwk [facility] [address] DO Work Phone: Start: 08-19-2019 End: 61-69-9618Ifhbioasde hospital visit by Lea [facility] Comment on above:Well female exam with routine gynecological examStart: 88-61-1019NlayeqzvjjWPLYDHSD UNKNOWNFacility:1532Start: 02-90-3596Ngpdpwhyaj PROVIDER UNKNOWNFacility:1532Start: 63-71-5078SeixtgzcssZducscfs:9507 Procedures DateProcedureProcedure DetailPerforming ClinicianStart: 64-95-8731Ogped wrist 2 viewsMalilli RINALDI Work Phone: Start: 25-21-1324Jvdwzf-up visitFoFederal Medical Center, [facility] Start: 22-03-9244Ttjae wrist 2 viewsMatthortenciaw Ronny RINALDI Work Phone: Start: 11-43-9780Tfnep chest X-rayAshley Grigsby MD Work Phone: Start: 37-09-2581Csxggwywkdpvz flexible transoral ultrasound examJENNIFER SALENA Start: 74-25-1015FephwpkvnkdMzxpeyy Sheldon DO Work Phone: Start: 87-97-2733Tmmwfke of coronary artery bypass graftingHistory of coronary artery bypass graftWideshaun Garibay DO Work Phone: Start: 74-28-7901Azndtbgaqq elastography of liverMD Ashley Grigsby Work Phone: Start: 96-04-0151Vicdrezm resonance cholangiopancreatographyMD Ashley Grigsby Work Phone: Start: 11-02-2022 End: 79-44-8707BklimhsdiouTF Ashley Grigsby Work Phone: Start: 19-13-2282RaaokdlcgrhHF Ashley Grigsby Work Phone: Start: 26-13-6285UvcagiubyfuAbcxxwi Sheldon DO Work Phone: Start: 41-07-9003Uibtikdsbps observation [Identifier] in Cervix by Cyto stainCarmen Deuce Tello DO Work Phone: Start: 17-78-6109Vegmrohp of ganglion cystPatrick CARRILLO Start: 61-26-2851Vkdxhhjqcye observation [Identifier] in Cervix by Cyto stainAshley Grigsby MD Work Phone: Start: 53-44-6529Aookrhvadtw removal of ureteric stent JENNIFER MARTINO Start: 09-13-2017H/O: surgeryS/P nasal septoplastyStephanie Berger MD PhD Work Phone: AppendectomyDouglas M Seb Work Phone: [phone] CARRILLO Bypass of stomachPatrick CARRILLO Cataract surgeryDouglas [...] Work Phone: Plan of Treatment DateCare ActivityDetailAuthorStart: 69-28-1115Ekazeiceb for malignant neoplasm of colonKindred Hospital LimaStmuscle shoals: 67-85-4786Bzgmspjok for malignant neoplasm of cervixN[facility]: 08-18-2025 End: 07-82-9241Yyiixew encounter /18/2025 11:20 AM EST Office Visit [place] [address] [facility] [address] [place] [address] Celso Garibay, DO [address] [facility] [place] [address] [facility]: 08-04-2025 End: 13-49-0220Bsmggry encounter tryfmniyo92/04/2025 10:45 AM EST Office Visit [facility] [place] [address] Jr. Bridgett Sinha, DO [address] [place] [address] [facility]icsStart: 08-03-2025 End: 62-86-7587Lgyluba aminotransferase [Enzymatic activity/volume] in Serum or Plasma by With P-5'-PAlanine Aminotransferase Lab Routine Hyperlipidemia, unspecified hyperlipidemia type Expected: 08/03/2025 (Approximate), Expires: 08/13/2025[facility] Area Work Phone: Comment on above:Expected: 08/03/2025 (Approximate), Expires: 08/13/2025Start: 08-03-2025 End: 16-23-5686Eblzugifa aminotransferase [Enzymatic activity/volume] in Serum or Plasma by With P-5'-PAspartate Aminotransferase Lab Routine Hyperlipidemia, unspecified hyperlipidemia type Expected: 08/03/2025 (Approximate), Expires: 08/13/2025[facility] Work Phone: Comment on above:Expected: 08/03/2025 (Approximate), Expires: 08/13/2025Start: 08-03-2025 End: 89-85-0281Auzdy 1996 panel - Serum or PlasmaLipid Panel Lab Routine Hyperlipidemia, unspecified hyperlipidemia type Expected: 08/03/2025 (Approx imate), Expires: 08/13/2025[facility] Work Phone: Comment on above:Expected: 08/03/2025 (Approximate), Expires: 08/13/2025Start: 07-14-2025 End: 90-79-6033uyieclysuw92/14/2025 5:00 PM EDT Evaluation [facility] [address] [place] [address] Kayode Francois, PT [address] [place], [place] [address] [facility] 06-23-2025 End: 18-82-7141Xxaexvj encounter jrirmwjsr99/23/2025 11:00 AM EDT Office Visit [facility] [address] [place] [address] Jr. Bridgett Sinha, DO [address] [facility] [address] [place] [address] [facility]ITALPam [facility] OrthopaedicsStart: 06-02-2025 End: 85-51-7369EA Wrist - right WO contrastMR wrist right wo IV contrast Imaging Routine Chronic pain of right wrist Expected: 06/02/2025 (Approximate), Expires: 06/02/2026[facility] Work Phone: Comment on above:Expected: 06/02/2025 (Approximate), Expires: 06/02/2026Start: 06-02-2025 End: 20-31-8022Sooufgf encounter procedureNOCO [place] OrthopaedicsComment on above:ArrivedStart: 59-77-7289Mlqeachxu vaccinationInfluenza Vaccine (#1)[facility] HealthcareStart: 05-15-2025 End: 42-93-0795OQQ AND NERVE CONDUCTION STUDYEMG AND NERVE CONDUCTION STUDY Neurology Routine Arm weakness Numbness Arm pain, right Ulnar neuropathy of right upper extremity Expected: 05/15/2025 (Approximate), Expires: 05/15/2026 [facility] Work Phone: Comment on above:Expected: 05/15/2025 (Approximate), Expires: 05/15/2026Start: 03-17-2025 End: 05-58-1185Npwkmhj encounter wxtkauoeg77/17/2025 2:40 PM EDT Office Visit [facility] [address] [facility] [address] [place] [address] Celso Garibay DO [address] [facility] [address] [place] [address] [facility] CenterStart: 09-54-0617Xyocg BMI ScreeningAdult BMI ScreeningProMetrohealth Parma Medical Center SystemStart: 36-91-4579Jpjgmdbxx for malignant neoplasm of cervixBON SECOURS TRIHEALTH BETH[facility] NORTH HOSPITALStart: 66-19-2982Xzfod BMI Screening Adult BMI ScreeningProMetrohealth Parma Medical Center SystemStart: 07-90-8751Fijkutp Screening Tobacco ScreeningKettering Health Troy SystemStart: 01-15-2025 End: 40-07-1405Piwnwqo encounter xkpuedgci61/17/2025 4:00 PM EDT Office Visit [facility] [address] [place] [address] Stephanie Berger MD PhD [address] [facility] [address] [place] [address] [facility] Start: 11-26-2024 End: 24-61-5390Rfildmq encounter iurziavfh23/26/2025 1:00 PM EST Office Visit [facility] [address] [place] [address] Raji Byrd PA [address] [facility] [address] [place] [address] Acute pain of right wrist (Primary Dx)[facility] Comment on above:Acute pain of right wrist (Primary Dx)Start: 08-19-2024 Screening for malignant neoplasm of cervixSamaritan HospitalStart: 56-85-8712VpqiurwrxMercy Health Defiance Hospitaltart: 66-65-8373Qmrashtj to cardiologistMercy Health Defiance Hospitaltart: 45-52-5900FgdsavaqrMercy Health Defiance Hospitaltart: 20-58-7000Jjmafxin admissionMercy Health Defiance Hospitaltart: 08-15-2024 Screening for malignant neoplasm of breastMammogramKindred Hospital LimaStart: 08-13-2024 End: 47-81-4747Xccjisa encounter gzpjvicnz99/13/2024 11:30 AM EST Office Visit [facility] [address] [facility] [address] [place] [address] Celso Garibay DO [address] [facility] [address] [place], [place] [address] [facility]: 16-69-0820QBX High Risk: (Elderly (60+) or Population) (1 - Risk 60-74 years 1-dose series)RSV High Risk: (Elderly (60+) or Population) (1 - Risk 60-74 years 1-dose series) [facility]imaStart: 53-56-5709OMXUP-19 Vaccine ( season)COVID-19 Vaccine ( season)[facility] Start: 37-73-0587Suuqsrpcz vaccinationInfluenza VaccineKettering Health Troy System Start: 03-06-2024 End: 57-33-8779Mgmimbtag to same day surgery yvndnr4303/06/2024 11:30 AM EDT - 03/06/2024 12:45 PM EDT Surgery [facility] [address] [place] [address] Danielle Magallon MD [address] [place] [address] ESOPHAGOGASTRODUODENOSCOPY DIAGNOSTIC [54840 (CPT )][facility] EndoscopyComment on above:ESOPHAGOGASTRODUODENOSCOPY DIAGNOSTIC [82297 (CPT )] Start: 03-06-2024 End: 46-64-8674Iiyadriscnfwcurqdtmndlknrq transoral diagnostic ESOPHAGOGASTRODUODENOSCOPY DIAGNOSTIC ACUTE RECURRING PANCREATITIS, EPIGASTRIC PAIN 03/06/2024 11:30 AM EDTTOLEDO ENDOSCOPYStart: 03-06-2024 End: 37-67-5570Rnphgekztbjia flexible transoral ultrasound examENDOSCOPIC ULTRASOUND UPPER ACUTE RECURRING PANCREATITIS, EPIGASTRIC PAIN 03/06/2024 11:30 AM EDTTOLEDO ENDOSCOPYStart: 29-59-6098Ltyrtxusyp hospital visit by physician 03/06/2024 11:30 AM EDT Hospital Encounter [facility] [address] [place] [address] Danielle Magallon MD [address] [place] [address] [facility] EndoscopyStart: 07-67-5566Hcvujvpwvb Screen Depression ScreenCUMBERLAND HOSPITALStart: 02-12-2024 End: 65-91-7662Ugeblrw aminotransferase [Enzymatic activity/volume] in Serum or Plasma by With P-5'-PAlanine Aminotransferase Lab Routine History of coronary artery bypass graft Ischemic cardiomyopathy Expected: 02/12/2024 (Approximate), Expires: 08/14/2024[facility] Work Phone: Comment on above:Expected: 02/12/2024 (Approximate), Expires: 08/14/2024Start: 02-12-2024 End: 85-86-4353Buvrpqktk aminotransferase [Enzymatic activity/volume] in Serum or Plasma by With P-5'-PAspartate Aminotransferase Lab Routine Atherosclerosis of coronary artery of [place] heart without angina pectoris, unspecified vessel or lesion type Ischemic cardiomyopathy Expected: 02/12/2024 (Approximate), Expires: 08/14/2024[facility] Work Phone: Comment on above:Expected: 02/12/2024 (Approximate), Expires: 08/14/2024Start: 02-12-2024 End: 42-93-8072Ujfcc 1996 panel - Serum or PlasmaLipid Panel Lab Routine Atherosclerosis of coronary artery of [place] heart without angina pectoris, unspecified vessel or lesion type Expected: 02/12/2024 (Approximate), Expires: 08/14/2024[facility] [[email or web address]] Service Area Work Phone: Comment on above:Expected: 02/12/2024 (Approximate), Expires: 08/14/2024Start: 96-86-8106JUN, Provider: Celso Garibay, Status: Julio, Time: 3:00 PMFUV, Provider: Celso Garibay, Status: Julio, Time: 3:00 PM-[facility] 250 DO Work Phone: Start: 92-74-4557Fufiknpkd for malignant neoplasm of breastBreast cancer screenSamaritan HospitalStart: 63-75-1147Imcwlvytr for malignant neoplasm of breastMammogramUnMartin Memorial HospitalStart: 07-03-2023 End: 58-17-8540Ngctuss encounter jsyvpnxzk28/03/2023 4:45 PM EDT Office Visit [facility] Part of [facility] [address] [facility] [address] [place] [address] Deuce Gaby Tello, DO [address] [facility] [place] [address] post-op BA 05/16[facility] Part [facility] HospitalComment on above:post-op BA 8/tart: 06-18-2023 End: 25-22-5790Pggnazazgcxx bx endometrium&/polypc w/wo d&cDILATATION AND CURETTAGE HYSTEROSCOPY Post-menopausal bleeding Inclusion cyst 06/18/2023 2:01 PM EDMartins Ferry Hospitaltart: 32-86-8057MYCUI-19 Vaccine ()COVID-19 Vaccine ()[facility] SystemStart: 02-13-2023 End: 65-60-8763Jgywrez encounter xkuhzocdc70/16/2023 Office Visit Obstetrics and Gynecology Gaby Phillips, DO [address] [place] [address] [facility] Part [facility]tart: 08-87-3739LfonuswrwMercy Health Defiance Hospitaltart: 33-19-5445PyjmkkiylKettering Memorial Hospital CenterStart: 11-01-2022 [facility] CenterStart: 65-37-1779Cpmvhpsqb for malignant neoplasm of cervixPap smearCleveland Clinic Union Hospital HealthStart: 39-68-7058XMV, Provider: Celso Garibay, Status: Pen, Time: 3:00 PMFUV, Provider: Celso Garibay, Status: Pen, Time: 3:00 PM-[facility] 250 DO Work Phone: Start: 79-65-9964Dppqs panelLipidsCleveland Clinic Union Hospital HealthStart: 38-27-1728ABZPU-19 Vaccine (4 - Pfizer series)COVID-19 Vaccine (4 - Pfizer series)SADI RODRIGUEZ [facility]: 46-11-3652Vlhwnoxeb vaccinationFlu vaccine (#1)[facility]: 16-75-5902Hwmhscnmcqdf Vaccine: Pediatrics (0 to 5 Years) and At-Risk Patients (6 to 64 Years) (2 - PCV)Pneumococcal Vaccine: Pediatrics (0 to 5 Years) and At-Risk Patients (6 to 64 Years) (2 - PCV) [facility]: 65-46-1206Brlmhjydzsfe Vaccine: Pediatrics (0 to 5 Years) and At-Risk Patients (6 to 64 Years) (2 of 2 - PCV) Pneumococcal Vaccine: Pediatrics (0 to 5 Years) and At-Risk Patients (6 to 64 Years) (2 of 2 - PCV)[facility]: 79-84-3335Luujjh cancer screenBreast cancer screenAultman Alliance Community Hospital: 12-05-0845Lsiti cancer screen colonoscopyColon cancer screen colonoscopyWeimar, [place] Start: 10-14-2282Yuoloowu Vaccine (1 of 2)Shingles Vaccine (1 of 2)[facility] Start: 85-76-4316MWK Vaccines (1 of 1 - Standard series)MMR Vaccines (1 of 1 - Standard series)[facility]: 21-66-0734Lfqhgaljw for malignant neoplasm of colonKettering Health [facility]: 32-95-7444Ybmqynwm screenDiabetes screenKettering Health [facility]: 71-99-5054LAwS/Tdap/Td Vaccines (1 - Tdap)DTaP/Tdap/Td Vaccines (1 - Tdap)[facility]: 86-06-3156Idavsjrm cancer screenCervical cancer screenAultman Alliance Community Hospital: 1985 Screening for malignant neoplasm of cervixKindred Hospital Lima Start: 76-48-0455VBsN,Tdap and Td Vaccines (1 - Tdap)DTaP,Tdap and Td Vaccines (1 - Tdap)[facility] SystemStart: 36-31-0709PQjF/Tdap/Td vaccine (1 - Tdap)DTaP/Tdap/Td vaccine (1 - Tdap)[facility]: 92-00-2053Amhbo BMI Follow Up PlanAdult BMI Follow Up PlanAtrium Health Stanlytart: 1982 Diabetes mellitus screeningDiabetes ScreeningKindred Hospital [facility]ima Start: 76-42-6595Ypvlsmjiq C screeningAvita Health Systemart: 32-68-4747OPZ screenHIV [facility]: 73-97-0950PNS screeningHIV [facility] Start: 96-55-7786Yjaqimnjst ScreenDepression [facility]: 1976 Depression ScreeningDepression ScreeningAtrium Health Stanlytart: 1975 DTaP/Tdap/Td vaccine (1 - Tdap)DTaP/Tdap/Td vaccine (1 - Tdap)[facility]: 99-66-8064Wryfh panelLipidsBON [facility]: 1974 Lipid screenLipid screenAultman Alliance Community Hospital: 02-23-5822Rlismuhqw B vaccine (1 of 3 - 3-dose series)Hepatitis B vaccine (1 of 3 - 3-dose series)[facility]: 44-41-5887Tdyyuyptz B Vaccines (1 of 3 - 3-dose series) Hepatitis B Vaccines (1 of 3 - 3-dose series)[facility] Start: 32-71-1309Wmnphymib C screenHepatitis C [facility]: 20-95-8993XBU screeningHIV ScreeningKindred Hospital LimaStart: 82-32-2234Tsrjc panelLipid PanelKindred Hospital LimaStart: 62-56-0221Qfhsmtymy for malignant neoplasm of colonKindred Hospital LimaStart: 58-45-0411Wgzdgh Adult PhysicalYearly Adult PhysicalUnMartin Memorial HospitalActin smooth muscle IgG Ab [Units/volume] in Serum [facility] CenterAlpha 1 antitrypsin [Mass/volume] in Serum or PlasmaKettering Health Behavioral Medical CenterAlpha 1 antitrypsin phenotyping [Identifier] in Serum or Plasma by ImmunofixationKettering Health Behavioral Medical CenterCeruloplasmin [Mass/volume] in Serum or PlasmaKettering Health Behavioral Medical Center End: 20-17-5883Xlkcvzlchnvsf procedure, preparation of smear, genital sourcePAP SMEAR Lab Routine Well female exam with routine gynecological exam 1 Occurrences starting 08/19/2019 until 08/19/2019[facility]Memorial Healthcare on above:1 Occurrences starting 08/19/2019 until 08/19/2019 End: 50-40-7973Mjqkcpxfpknye procedure, preparation of smear, genital sourcePAP SMEAR Lab Routine Women's annual routine gynecological examination 1 Occurrences starting 02/07/2022 until 02/07/2022[facility] Signdat Work Phone: comment on above:1 Occurrences starting 02/07/2022 until 02/07/2022Glucose measurement estimated from glycated hemoglobinRiverside Methodist Hospital A virus Ab [Presence] in Serum by Immunoassay [facility] Medical CenterHetemecula valley hospital B core antibody measurementKettering Health Behavioral Medical CenterHetemecula valley hospital B virus surface Ab [Presence] in SerumKettering Health Behavioral Medical CenterHetemecula valley hospital B virus surface Ag [Presence] in Serum or Plasma by ImmunoassayRiverside Methodist Hospital C virus IgG Ab [Presence] in Serum or Plasma by ImmunoassayKettering Health Behavioral Medical Center Homogenous nuclear Ab pattern [Titer] in [facility] IgG [Mass/volume] in Serum or PlasmaKettering Health Behavioral Medical Center End: 84-85-1769CVYKMAAZ PACU OXYGEN THERAPY PROTOCOLInitiate PACU Oxygen Therapy Protocol Respiratory Care Routine Continuous until discontinued starting 06/18/2023 [facility] on above:Continuous until discontinued starting 06/18/2023Lipoprotein a [Moles/volume] in Serum or PlasmaKettering Health Behavioral Medical CenterMitochondria M2 IgG Ab [Units/volume] in [facility] CenterNuclear Ab [Titer] in [facility] CenterOxygen therapy [Minimum Data Set]Initiate Oxygen Therapy Protocol Respiratory Care Routine As Needed until discontinued starting 06/18/2023 [facility] on above:As Needed until discontinued starting 06/18/2023Oxygen therapy [Minimum Data Set]Initiate Oxygen Therapy Protocol Respiratory Care Routine As Needed until discontinued starting 06/18/2023 [facility] on above:As Needed until discontinued starting 06/18/2023atient EducationHemorrhoids (DC)[facility] Work Phone: End: 67-95-7888Gwszpxfgo, urine POCTPregnancy, urine POCT Point of Care Testing Routine One Time for 1 Occurrences starting 06/18/2023 until 06/18/2023ON [facility] on above:One Time for 1 Occurrences starting 06/18/2023 until 06/18/2023Surgical PathologySurgical Pathology Lab Routine Post-menopausal bleeding Inclusion cyst Release Upon Ordering for 1 Occurrences starting 06/18/2023ON [facility] on above:Release Upon Ordering for 1 Occurrences starting 06/18/2023[facility] Immunizations Immunization DateImmunizationNotesCare DqbketnjPdgljzcz56-12-4939ogvpajtpy virus vaccine, unspecified formulationMalilli RINALDI Work Phone: NOSaint John's Regional Health CenterDgiyrkxrqy58-56-0486pvjssxgqy, unspecified formulationJELIZBETH MARTINO [facility]09-05-2023influenza virus vaccine, unspecified formulationStephanie Berger MD PhD Work Phone: [facility] HospitalBxtdhd15-65-8575nmnxpxzrb, injectable, quadrivalent, preservative Estevan Gordilloestefani Work Phone: [phone]-FxaeyRegions Hospital 250 DO Work Phone: [phone] vaccine recombinantAshley Clements Hoy Work Phone: [phone]-ZttoyLakes Medical CenterNapera Networks 250 DO Work Phone: [phone]ed-DodHGxii COVID-19 Vacc 30 MCG/0.3ML Intramuscular SuspensionDouglas Elias Hoy Work Phone: [phone]-DlwhiRegions Hospital 250 DO Work Phone: [phone]ycmfj virus vaccine, unspecified formulationugcholo M Hoy Work Phone: [phone]-AnsclRegions Hospital 250 DO Work Phone: [phone], injectable, Madin [place] Canine Kidney, preservative free, quadrivalentDouglas M Hoy Work Phone: [phone]-FkzoeRegions Hospital 250 DO Work Phone: [phone]-IpmGEcyw COVID-19 Vacc 30 MCG/0.3ML Intramuscular SuspensionDouglas M Hoy Work Phone: [phone]-IpxodRegions Hospital 250 DO Work Phone: [phone]-XydFXorl COVID-19 Vacc 30 MCG/0.3ML Intramuscular SuspensionDouglas M Hoy Work Phone: [facility] HospitalCrisnh68-13-8534nwhvyuyze, injectable, quadrivalent, preservative freeDouglas M Hoy Work Phone: [phone]-KggyaRegions Hospital 250 DO Work Phone: [phone], injectable, quadrivalent, preservative freeDouglas M Hoy Work Phone: [phone]-HtttlRegions Hospital 250 DO Work Phone: [phone], injectable, Madin Renetta Canine Kidney, preservative free, quadrivalentDouglas M Hoy Work Phone: [phone]-TvofjRegions Hospital 250 DO Work Phone: [phone] polysaccharide vaccine, 23 valentDouglas M Hoy Work Phone: [phone]-RfzxuRegions Hospital 250 DO Work Phone: [phone], seasonal, injectable, preservative freeDouglas M Hoy Work Phone: [phone]-UvuhoRegions Hospital 250 DO Work Phone: [phone], seasonal, injectableDouglas M Hoy Work Phone: [phone]-LezrgRegions Hospital 250 DO Work Phone: [phone] txadckcjg-Y6C1-47, preservative-free, injectableDodonn Grigsby Work Phone: [phone]-DqrgtRegions Hospital 250 DO Work Phone: Payers DatePayer CategoryPayerPolicy SR05-76-2021Uoyr-owa [id number] Cross Blue ShieldBCBS [id number] [facility] CareST. [facility] [id number]7446.18424-55-9613Bwbsbtq07-94-5917 UnknownBCBS [place] BC[place] xxxxxxxxxxxxxxx 2019-Present [address] [place] [address]cngtrtpucnwzrwx 1.2.840.212052.1.13.239.2.7.3.238[id number] 2.16.840.1.672427.3.579.[id number] 2.16.840.1.046464.3.57[id number] 2.16.840.1.767323.3.579.2.94856-98-0535Uvztncr7885759 2.16.840.1.596953.3.579.2.32644-49-5031Iabjrmt2380738 2.16840.1.521923.3.579.2.[id number] 2.16840.1.226248.3.579.2.05191-30-9319Jfbzlss855946155 2.840.1.393660.3.579.2.28049-34-9513Esmvdug62373104 2.16840.1.647582.3.579.2.387[id number] 2.840.1.563942.3.579.2.983605-52-1357Svukwhz52483596 2.840.1.579225.3.579.2.373166-80-5592Wwsfpyh50685631 2.16840.1.435303.3.579.2.677817-27-7213Cdgvzxg31435639 2.16840.1.874089.3.579.2.532260-95-6557Crhwjzn47082345 2.16840.1.984304.3.579.2.794092-14-1447Qzuyxck58014590 2.16840.1.412084.3.579.2.564[id number] 2.16840.1.039404.3.579.2.552703-67-6869Ykmyumy551319551 2.0.1.414602.3.579.2.952583-56-9563Qvunxoc177597459 2.840.1.623776.3.579.2.848026-50-3845Lplniuf520241086 2.0.1.011308.3.579.2.587452-63-9558Eebqtpk20536696 2.0.1.176320.3.579.2.989251-79-9581Qnplzho55094870 2..1.880991.3.579.2.171523-85-3060Tpyuula45295438 2.0.1.941318.3.579.2.713092-65-7770Oocrbfn31579398 2.0.1.788845.3.579.2.461706-05-8944Pficdsk83111131 2.0.1.928003.3.579.2.452151-44-0705Zdaqtcl68923514 2..1.444893.3.579.2.393854-42-8969Eqhgley0783946 2..1.463842.3.579.2.165904-62-5741Vefovqu3938796 2..1.213045.3.579.2.762133-79-0054Myonjxm45701541 2..1.202676.3.579.2.18152-94-0666Wmdllqn68365571 2.0.1.744107.3.579.2.05305-78-9093LtusdrqRSO23024426556669-05-2255Ykocsjp QOZ425E98543Qlolwhi37988727 2.0.1.827393.3.579.2.531 Social History DateTypeDetailFacilityStart: 08-19-2019 End: 11-35-9362Rbddzaa smoking status NHISNever smokerWe[place], [place]Start: 08-19-2019 End: 38-54-3100Sfbrfrn intakeEx-drinker (finding)[place], [place]: 95-71-0118Eoy Assigned At BirthNot on fileParkview Healthart: 06-18-2023 End: 12-14-8298Ai alcohol useNo alcohol useProvidence [facility]. [facility] [employer] 250 DO Work Phone: Start: 08-19-2019 End: 85-34-2843Eolwqeq use and exposureSmokeless tobacco non-userSamaritan Hospital Work Phone: start: 06-18-2023 End: 50-84-4634Npb Assigned At [facility] HospitalFemaleExecutive [facility] start: 43-55-9067Wlw Assigned At [facility] HospitalPatient Health Questionnaire 9 item (PHQ-9) total score [Reported]0[facility]ITALStart: 08-14-2023 End: 14-27-0958Edkfmlk intakeLifetime non-drinker (finding)[facility] Work Phone: Start: 08-04-2023 End: 36-31-6391Qiyhvdhp to SARS-CoV-2 (event)Not sureKindred Hospital LimaStart: 68-01-9716MpbWspypt (finding)[facility] Start: 01-17-2024 End: 33-33-6110Rboedlfou beverage intakeCurrent non-drinker of alcohol (finding) [facility] SystemStart: 68-84-8730Luaxxg identityIdentifies as female gender (finding)[facility]OM[facility] HealthcareNEGATED: Highlighted rowDenies Caffeine useDenies Caffeine use-[facility] ProPerforma 250 DO Work Phone: Medical Equipment Procedure CodeEquipment CodeEquipment Original TextEquipment IdentifierDates Cystoscopy, with ureteral calculus manipulation and stent placementSTENT BARD MULTI 6FR 22-32CMFDAStart: 98-26-1825Zkpvrlpxjx, with ureteral calculus manipulation and stent placementSTENT BARD MULTI 6FR 22-32CMFDAStart: 04-24-2018 Cystoscopy, with ureteral calculus manipulation and stent placementSTENT BARD MULTI 6FR 22-32CMFDAStart: 87-79-6997Wlwjogvnpa, with ureteral calculus manipulation and stent placementSTENT BARD MULTI 6FR 22-32CMFDAStart: 04-24-2018 Tissue Alloderm Nonmesh 2x4cm - Sna - [id number]: 99-66-1522Narl Iol Ultrasert 17.0d - [id number] - [id number]: 26-35-1315Sggkw Implant Propel Mini - Sna - [id number]: 36-58-5645Bvcqu Implant Propel - Sna - [id number]: 30-92-6247Iavdyxnwr [id number] Start: 11-05-2018 Goals DatePatient GoalDesired Activity/State Functional Status QqsqNuonlgvtslZnewuhNxnrlnvk83-82-1982Twthorcfae StatusN/A[facility]2024Functional StatusN/A[facility]09-02-2022Functional StatusN/A [facility] Clinical Notes 06-02-2022 to 06-23-2025 Note Date & ZpdhSdpaRdgfrblv99-28-5994 History of Present illness Narrative* Jr. Bridgett [...] for requiring urgent evaluation. documented in this encounterUniversity of Missouri Health CareOmsxyeybnj51-11-7795 History of Present illness Narrative* Bridgett Sinha, [...] IV contrast MRI RT wrist w/o at [facility]. Orbits if needed. Please contact [...] for requiring urgent evaluation. documented in this encounterUniversity of Missouri Health [id number] History of Present illness Narrative* Rae Louie MD - 05/27/2025 3:15 PM EDT [facility] Patient: Jose Alberto Saleem [address], [address] , Sex: 1965, Male [place], [place] [address] Height: 160 cm Ref Phys: Byrd fax [...] Doub=doublet; Fasc=fasciculation; FFE=full for effort; Fib=fibrillation; Myokym=myokymia; [place]=myotonic potential; N,0=normal; NR=no response; Polyph=polyphasia; Pos=positive [sharp] [...] or mononeuritis multiplex. Rae Louie M.D. Diplomate, [place] Board of Psychiatry and Neurology (neurology, epilepsy, sleep medicine) Diplomate, [place] Board of Clinical Neurophysiology Diplomate, [place] Board of Preventive Medicine (clinical informatics) . documented in this encounterUniversity of Missouri Health CareHokkmcymue57-44-4189 NoteCalled patient today to let her know [...] dosage depending on her snack, verifies understanding. [facility]08-15-2025 History of Present illness Narrative* GENTRY [...] her hand tightly in a fist. Symmetric bsa/aml compliance officer strength noted. She has had prior carpal [...] Scheduling Instructions: Schedule with Dr. Louie ( [facility] EMG resource).- EMG RT UE; PLEASE CALL [...] requiring urgent evaluation. Visit was preformed using [employer] Co-captain airline pilot speech recognition. documented in this encounterUniversity of Missouri Health CareVqgkyqdpsq93-50-5080 NoteCalled patient to follow up with the [...] LATIA Rivera in the clinic and Dr. Watson.[facility]08-08-2025 Note Attestation signed by Chauncey Kimble MD at 05/08/2025 4:15 PM I personally saw the patient with the resident/fellow on the same day of service. I discussed the findings and therapeutic plan with the resident/fellow and with the patient. I agree with the documentation. [facility] Gastroenterology Follow-Up Patient Visit CHIEF COMPLAINT [...] B12/Folate/Iron studies: Lab Results Component Value Date PHDPFALK91 1,862 (H) 02/27/2024 FOLATE 39.0 02/27/2024 IRON [...] TSH 2.02 02/27/2024 Pancreatiti (more content not included)...[facility] 01-09-2025 Note Attestation signed by Chauncey Kimble MD at 01/10/2025 8:31 AM I personally saw the patient with the resident/fellow on the same day of service. I discussed the findings and therapeutic plan with the resident/fellow and with the patient. I agree with the documentation. [facility] Gastroenterology New Patient Visit - History & Physical CHIEF COMPLAINT Chief Complaint Patient presents with Follow-up MRI follow up and seen at [facility] and in hospital for 1 day. [...] on for which she was admitted at [facility] and was management symptomatically. Patient [...] Plavix, baby aspirin, amlodipine, and a PRN [place] for pain. Of note, she has a [...] which were ordered at the outside facility ([facility]) and remain pending. A HIDA scan may also be pursued for further evaluation. She reports extreme fatigue post-hospitalization, interfering with her work and daily function. She prefers to avoid surgical intervention unless necessary and is open to advanced enteroscopy (e.g., device-assisted ERCP) at tertiary centers ([facility] or [facility]) as a less invasive alternative to laparoscopic-assisted ERCP. Plan includes requesting complete LFTs and pancreatic (more content not included)... [facility]03-14-2025 Note Attestation signed by Chauncey Kimble MD at 12/12/2024 3:31 PM I personally saw the patient with the resident/fellow on the same day of service. I discussed the findings and therapeutic plan with the resident/fellow and with the patient. I agree with the documentation. [facility] Gastroenterology New Patient Visit - History [...] on for which she was admitted at [facility] and was management symptomatically. Patient [...] healthy appearing mucosa. This was traversed. The klhct-jg-ivwqwpp limb was characterized by healthy appearing mucosa. [...] Angina pectoris Atherosclerosis of coronary artery of re[place]-sparks heart without angina pectoris Cellulitis of right [...] Mother Katharyn Hyperlipidemia Father Munoz Hyperlipidemia Brother [place] Heart attack Brother Ray SOCIAL HISTORY: Social History Tobacco Use Smoking status: Never Smokeless tobacco: Never Vaping Use Vaping status: Never Used Substance Use Topics Alcohol use: Never Drug use: Never ALLERGIES: Baclofen; Latex, natural rubber; Penicillins; Sulfa (sulfonamide antibiotics); Rosuvastatin; Sulfamethoxazole-trimethoprim; Fenofibrate; Fenofibrate micronized; Fluvastatin; Levofloxacin; Phenazopyridine; Simvastatin; Trimethoprim; and Tobramycin Current Med (more content not included)...[facility] 11-26-2024 History of Present illness Narrative* [...] AND FELT A POP 10/08/24- WENT TO [facility]; [facility]ENT [facility] XRAYS XRAY RT WRIST TODAY EPIC 11/26/24 XRAY [facility] RT FOREARM 10/11/24 SPLINT DOING WELL TODAY- [...] xray 10/11/24 (R) Forearm: no acute fracture [facility] Results - Imaging: - X-ray of the [...] for requiring urgent evaluation. documented in this encounterUniversity of Missouri Health CareUttvbwujts13-22-2408 History of Present illness Narrative* Celso Garibay, - 09/05/2024 9:20 AM EST Subjective Jose Alberto Saleem is a 59 y.o. female Chief Complaint Follow-up 59-year-old female returns following acute coronary syndrome, with subsequent two-vessel intervention of the vein graft to the diagonal branch with long 3.5 x 38 mm Ray stent and re[place]-sparks distal circumflex for in-stent restenosis with 3 x 18 mm Reklaw stent. LV function is preserved. WHEELER-LAD remains patent, re[place]-sparks right coronary vein graft right coronary is chronically occluded (known from the past) and collateralized via left coronary system, and vein graft to the OM 2 is also occluded chronically however reno-sparks circumflex is intact. Patient is otherwise stable [...] Atherosclerosis of coronary artery bypass graft of re[place]-sp[place] heart without angina pectoris 2. S/P PTCA [...] exam, discussion and plan. documented in this [facility] Work Phone: 1(123) 334-730512-06-2024 Instructions* Patient Instructions* Jasmyne Salinas LPN - [...] through Care Everywhere. * Heart Healthy Diet (Turkish) documented in this [facility] Work Phone: 1(847) 712-372411-19-2024 Evaluation note* Diagnosis Onset Date Resolution Status Admit Date Atypical chest pain acuteNovember 2023 11:18pm [facility] Work Phone: 1(791) 369-600411-13-2024 History of Present illness Narrative* Celso Garibay, - 08/13/2024 11:30 AM EST Subjective Jose Alberto Saleem is a 59 y.o. female Chief Complaint Annual Exam 59-year-old female returns for annual visit, she just got back from [facility] from vacation last evening and is [...] has a history of remote CABG, remote ID, remote PCI's before and after her CABG [...] Assessment/Plan 1. Atherosclerosis of coronary artery of re[place]-sparks heart without angina pectoris, unspecified vessel or lesion type Follow Up In Cardiology 2. History of coronary artery bypass graft Follow Up In Cardiology 3. Essential hypertension, benign 4. Hyperlipidemia, unspecified hyperlipidemia type 5. Acute pancreatitis, unspecified complication status, unspecified pancreatitis type ([facility]) Scribe Attestation By signing my name [...] exam, discussion and plan. documented in this encounterKindred Hospital Lima Work Phone: 1(480) 119-141011-13-2024 Instructions* Patient Instructions* Bettie Ugalde LPN - [...] Provided instructions on exercise. documented in this encounterKindred Hospital [facility] Work Phone: 1(551) 472-832711-05-2024 Hospital Discharge instructions Patient Education 08/05/2024 12:20:10 Kidney Stones, Kzkx-rz-Jomd Kidney Stones Kidney stones are rock-like masses [...] Follow these instructions at home: Medicines Take vmsn-rps-ikysgve and prescription medicines only as told by [...] provider. Document Revised: 05/11/2023 Document Reviewed: 05/11/2023 Dizzion Patient Education 2023 [employer]. Follow Up Care 06/06/2024 11:10:21 With:SALENA REDDY, JENNIFER López, TRUDYL Address: When:1 year [facility] 11-05-2024 NotePatient Education Urology Kidney Stones [...] these instructions at home: Medicines ??? Take suta-tzy-bksxaog and prescription medicines only as told by [...] provider. Document Revised: 05/11/2023 Document Reviewed: 05/11/2023 Dizzion Patient Education ? 2023 [employer].[facility] 04-10-2024 Hospital Discharge instructions Patient Education 04/10/2024 16:08:23 Kidney Stones, Omze-hf-Fnrg Kidney Stones Kidney stones are rock-like masses [...] Follow these instructions at home: Medicines Take cbgx-lvi-lwfvonf and prescription medicines only as told by [...] provider. Document Revised: 05/22/2022 Document Reviewed: 05/22/2022 Dizzion Patient Education 2022 [employer]. Follow Up Care 03/10/2024 08:31:33 With:JENNIFER MARTINO PA-C, URL Address: [address] [place] [address] When:3 months [facility] 05-31-2024 Instructions* Pre-Procedure Instructions - Aracely Boyd RN - 02/29/2024 10:00 AM EDT Your surgery/procedure is scheduled at [facility] on 03/06/2024 at 1130 Arrival Time 0930 [facility] Address: [address] [place] [address]. [place] [address] Park in [address] Parking lot located on [facility]. Report to the Entrance B. Check in at the information desk the surgery. The waiting room located on the second floor. If you have any questions prior to surgery, please call Pre-Admission Clinic at [phone] between 7:30 am and 4:30 pm Sunday through Sunday. If you have questions the morning of surgery, please call the Pre-op Department at [phone]. Notify your SURGEON if you develop any [...] would like to schedule therapy at a [facility] facility, please call [phone] ([phone]). Do not use lotions, creams, powders, perfume, [...] RIGHTS AND RESPONSIBILITIES As a patient at [facility], you have the right to: Receive medical care and be informed of who is taking care of you Be treated with dignity and respect Have a family member/small business sales representative of choice and your physician notified of your admission Receive information and actively participate in decisions about your care and treatment Refuse care, treatment and services Decide who may provide your support and speak for you Access yazidi and spiritual services Participate in ethical issues [...] of hospital charges and payment methods Patient/patient small business sales representative responsibilities are to: Provide information [...] RIGHTS AND RESPONSIBILITIES As a patient at [facility], you have the right to: Receive medical care and be informed of who is taking care of you Be treated with dignity and respect Have a family member/small business sales representative of choice and your physician notified of your admission Receive information and actively participate in decisions about your care and treatment Refuse care, treatment and services Decide who may provide your support and speak for you Access yazidi and spiritual services Participate in ethical issues [...] of hospital charges and payment methods Patient/patient small business sales representative responsibilities are to: Provide information [...] Control department if you have any questions. [facility]05-31-2024 Miscellaneous Notes* Pre-Procedure Instructions - Aracely Boyd RN - 02/29/2024 10:00 AM EDT Your surgery/procedure is scheduled at [facility] on 03/06/2024 at 1130 Arrival Time 0930 [facility] Address: [address] [place] [address]. [place] [address] Park in [address] Parking lot located on [facility]. Report to the Entrance B. Check in at the information desk the surgery. The waiting room located on the second floor. If you have any questions prior to surgery, please call Pre-Admission Clinic at [phone] between 7:30 am and 4:30 pm Sunday through Sunday. If you have questions the morning of surgery, please call the Pre-op Department at [phone]. Notify your SURGEON if you develop any [...] prior to your surgery. For questions regarding JONATHNA education, reach out to your surgeon's office. If you have been given a prescription for occupational, physical or speech therapy, please set up these appointments before your procedure. If you would like to schedule therapy at a [facility] facility, please call [phone] ([phone]). Do not use lotions, creams, powders, perfume, [...] RIGHTS AND RESPONSIBILITIES As a patient at [facility], you have the right to: Receive medical care and be informed of who is taking care of you Be treated with dignity and respect Have a family member/small business sales representative of choice and your physician notified of your admission Receive information and actively participate in decisions about your care and treatment Refuse care, treatment and services Decide who may provide your support and speak for you Access yazidi and spiritual services Participate in ethical issues [...] of hospital charges and payment methods Patient/patient small business sales representative responsibilities are to: Provide information [...] RIGHTS AND RESPONSIBILITIES As a patient at [facility], you have the right to: Receive medical care and be informed of who is taking care of you Be treated with dignity and respect Have a family member/small business sales representative of choice and your physician notified of your admission Receive information and actively participate in decisions about your care and treatment Refuse care, treatment and services Decide who may provide your support and speak for you Access yazidi and spiritual services Participate in ethical issues [...] of hospital charges and payment methods Patient/patient small business sales representative responsibilities are to: Provide information [...] you have any questions. documented in this encounterProtestant Deaconess HospitalSzl.it Munising Memorial HospitalEjqheb82-86-7353 History of Present illness Narrative* Stephanie Berger MD PhD - 01/17/2024 4:00 PM EDT [facility] [address] [facility] [address] SUBJECTIVE: Patient ID (1965): Jose Alberto Saleem [...] Kidney stones Myocardial infarction ([facility]) 2013 5 stents Visual impairment Past Surgical History: Procedure Laterality Date APPENDECTOMY BIOPSY SALIVARY GLAND FS N/A 09/06/2017 Performed by Stephanie Berger MD at [facility] CARPAL TUNNEL RELEASE right CHOLECYSTECTOMY CORONARY ARTERY BYPASS GRAFT x4 ENDOSCOPIC FUNCTIONAL SINUS SURGERY Bilateral 01/03/2018 Performed by Stephanie Berger MD at [facility] ENDOSCOPIC SURGERY SINUS Bilateral 01/03/2018 Performed by Stephanie Berger MD at [facility] EXCISION MASS UPPER EXTREMITY Right 11/19/2019 Performed by Stephanie Morse DO at [facility] HERNIA REPAIR LAPAROSCOPIC GASTRIC BYPASS LITHOTRIPSY OVARIAN CYST REMOVAL PHACO KELMAN I IMPLANT INTRAOCULAR LENS Left 11/14/2018 Performed by Nisha Stoll MD at [facility] PHACO KELMAN I IMPLANT INTRAOCULAR LENS Right 11/05/2018 Performed by Nisha Stoll MD at [facility] RELEASE CARPAL TUNNEL Right 01/11/2022 Performed by Stephanie Morse DO at [facility] RELEASE CARPAL TUNNEL [place] CPT 60915 Left 07/19/2022 Performed by Stephanie Morse DO at [facility] RESECTION SUBMUCOSAL Bilateral 09/06/2017 Performed by Stephanie Berger MD at [facility] SEPTOPLASTY SEPTOPLASTY N/A 09/06/2017 Performed by Stephanie Berger MD at [facility] STENT INSERTION LACRIMAL DUCT EYE Right 09/06/2017 Performed by Stephanie Berger MD at [facility] URETERAL STENT PLACEMENT Family History Problem [...] tablets (6.25 mg total) by mouth daily. tkuufdus-qipq-JV-calcium &mins (THERAGRAN-M) 9 mg iron-400 mcg tablet [...] day. (Patient not taking:Reported on 01/17/2024) sod qokqo-kzmtvd-qkzcdu bottle (NEILMED SINUS RINSE COMPLETE) packet with [...] this chart were generated using voice recognition [employer] dictation software. Although every effort was made to ensure the accuracy of this automated billiard player, some errors in billiard player may have occurred. documented in this encounterProtestant Deaconess HospitalSzl.it [facility] Memorial [id number] History of Present illness Narrative* Celso Garibay, [...] has a history of remote CABG, remote ID, remote PCI's before and after her CABG [...] Assessment/Plan 1. Atherosclerosis of coronary artery of re[place]-sparks heart without angina pectoris, unspecified vessel or lesion type 2. History of coronary artery bypass graft 3. Ischemic cardiomyopathy 4. Essential hypertension, benign documented in this encounterKindred Hospital [facility] Work Phone: 1(446) 454-120911-14-2023 Instructions* Patient Instructions* Ej Braswell MA - [...] time of your visit. documented in this encounterKindred Hospital Lima Work Phone: 1(161) 527-138909-18-2023 Hospital Discharge instructions* Discharge Instructions* Lissa Ocasio [...] call if excessive. Call the office at [phone] ([place]) [phone] ([place]) for an appointment in 2 weeks. documented in this [facility] History of Present illness Narrative* Sejal [...] pre-opvisit with Dr. Tripathi. documented in this encounterCUMBERLAND [facility]OSPITAL02-20-2023 Evaluation note* Encounter Date Diagnosis Assessment Notes Treatment Notes Treatment Clinical Notes Nov, Elevated liver function tests (I CD-10 - R94.5) [employer] Other 02-02-2023 [facility]01-24-2023 Evaluation note* Encounter Date Diagnosis Assessment Notes Treatment Notes Treatment Clinical Notes Oct, Abdominal pain (ICD-10 - R10.9) Oct,ommon bile duct dilatation (ICD-10 - K83.8) Oct,Elevated liver enzymes (ICD-10 - R74.8) Oct,onstipation (ICD-10 - K59.00)Colonoscopy Start Miralax daily after colonoscopy. Titration dosing discussed with patient. Oct,olon cancer screening (ICD-10 - Z12.11) [employer] Other 01-04-2023 NotePROGRESS NOTE NOTE DATE: 10/04/2022 CHIEF COMPLAINT: Abdominal pain. HISTORY OF PRESENT ILLNESS: The patient is a 57-year-old female with a history of dyslipidemia and gastric bypass surgery, who has been having increasing abdominal pain and flank pain. She was seen yesterday at the [place] for epigastric and upper abdominal [...] DVT Prophylaxis: Lovenox. DISPOSITION: Home when medically stable.[facility]09-02-2022 Hospital Discharge instructions Patient Education 06/02/2022 08:51:52 Kidney Stones, Cvng-pq-Lota Kidney Stones Kidney stones are rock-like masses [...] Follow these instructions at home: Medicines Take lypc-qgw-ldsxstr and prescription medicines only as told by [...] 03/05/2009 Document Revised: 02/03/2020 Document Reviewed: 02/03/2020 Dizzion Patient Education 2020 [employer]. Follow Up Care 05/27/2021 09:10:08 With:LORENA STRAUSS, Santiago Guzman, URL Address: [address] [place] [address]- When: Unknown [facility] evaluation + Plan note Future Appointments Appointment Date:06/01/2023 08:00:00 AM Scheduled Provider:Santiago CARRILLO MD Location:[facility] Appointment Type:URO Office Visit [facility] evaluation + Plan note Future Appointments Appointment Date:04/10/2024 03:00:00 PM Scheduled Provider:JENNIFER MARTINO PA-C Location:[facility] Appointment Type:URO Office Visit [facility] evaluation + Plan note Future Scheduled Tests Radiology* XR Abdomen 1 View 08/05/25 [facility] evaluation note* Diagnosis Women's annual routine gynecological examination documented in this encounter [facility] Work Phone: evaluation noteNo assessment information [facility] Work Phone: Evaluation noteNo InformationNofreeman [facility] [employer] Other Evaluation note* Diagnosis Post-menopausal bleeding Postmenopausal bleeding Inclusion cyst Sebaceous cyst documented in this encounter [facility] HEALTHEvaluation note* Diagnosis Atherosclerosis of coronary artery of re[place]-sparks heart without angina pectoris, unspecified vessel or lesion type 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 Ischemic cardiomyopathy Other specified forms of chronic ischemic heart disease Essential hypertension, benign documented in this encounter [facility] Work Phone: Evaluation note* Diagnosis Atherosclerosis of coronary artery of re[place]-sparks heart without angina pectoris, unspecified vessel or lesion type 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 Ischemic cardiomyopathy Other specified forms of chronic ischemic heart disease Essential hypertension Unspecified essential hypertension Mixed hyperlipidemia BMI 30.0-30.9,adult Statin intolerance documented in this encounter [facility] Work Phone: Evaluation note* Diagnosis Dry nose- [...] wrist, right documented in this encounter [facility] HealthcareEvaluation note* Diagnosis Right wrist pain- [...] physical note Author Evert Bruno [facility] November 01, 2022 12:40pmNote Date/TimeFebruary 2022 12:40pm[place] [address] Gastroenterology H&P Signed Patient: Jose Alberto Saleem MR#: [id number] : 1965 Acct:[id number] Age/Sex: 57 / F Adm Date: 3 Loc: Room: Type: [facility] Attending Dr: Evert Bruno MD [...] signed by Evert Bruno MD> 11/01/22 1240 [facility] Work Phone: History and physical note Author Evert Bruno [facility] November 02, 2022 2:14pmNote Date/TimeFebruary 2022 2:14pm[place] [address] Gastroenterology H&P Signed Patient: Jose Alberto Saleem MR#: [id number] : 1965 Acct:[id number] Age/Sex: 57 / F Adm Date: 3 Loc: Room: Type: [facility] Attending Dr: Evert Bruno MD [...] signed by Evert Bruno MD> 11/02/22 1414 [facility] Work Phone: History general Narrative - Reported* Type Description Date Medical History impaired fasting glucose Medical Historyheart disease, ID stents, CABGMedical HistoryHypertensionMedical HistoryhyperlipidemiaMedical Historynut cracker esophogusSurgical HistoryCABG remote historySurgical Historygastric ejgels5911Rabvrveu Historymultiple kidney stones removedSurgical HistoryappendectomySurgical Historycyst on ovarian removedSurgical Historybilateral carpe tunnel yxhtecq3792Liyondad History cholecystectomyHospitalization Historysee surgical hx [employer] Other Hospital course Narrative No data available for this section [facility] Hospital Discharge instructions Additional Instructions DISCHARGE [...] problems. -Follow up with PCP. -Office number [phone]. [facility] Work Phone: Hospital Discharge instructions Additional [...] problems. -Follow up with PCP. -Office number [phone]. [facility] Work Phone: Hospital Discharge instructions No data available for this section [facility] InstructionsNot on filedocumented in this encounter [employer]MSpread[employer] SystemInstructionsNot on filedocumented in this encounter [employer] [facility] Signdat SystemInstructionsNot on filedocumented in this encounter [facility] SystemProgress note No data available for this section [facility] reason for referral (narrative)* Consultation (Routine) - AuthorizedSpecialtyDiagnoses / ProceduresReferred By ContactReferred To ContactCardiology Diagnoses Atherosclerosis of coronary artery of [place] heart without angina pectoris, unspecified vessel or lesion type History of coronary artery bypass graft Procedures Follow Up In Cardiology Celso Garibay DO [address] [address], [address] [address] Celso Garibay DO [address] [facility], [address] [address] Referral IDStatusReasonStart DateExpiration DateVisits RequestedVisits [id number]/14/202311/13/202411 [facility] Work Phone: Reason for visit Narrative* Other Medical (Routine) - ClosedSpecialtyDiagnoses / ProceduresReferred By ContactReferred To Contact Neurology Diagnoses Arm weakness Numbness Arm pain, right Ulnar neuropathy of right upper extremity Procedures EMG AND NERVE CONDUCTION STUDY Raji Byrd, [address] [place] [address] Phone: tel: fax: Rae Louie MD [address] [address] Phone: tel: fax: Referral IDStatusReasonStart DateExpiration DateVisits RequestedVisits [id number]/15/20252/11/202611 [facility] Summary Purpose Family History No [...] of AttorneyTypeDate RecordedPatient RepresentativeExplanationACP- Advance DirectiveACP-Power of Cement Production Plant Operator Advance Directive Response Recorded Date/ Time [...] She has known history of prior inferior ID, prior stenting, priorthree-vessel CABG, subsequent PCI of [...] adverse reactions to other medications, hypotension. * [employer] is class I * Recommendations, [...] She has a history of prior inferior ID, prior PCI with subsequent three-vessel CABG and [...] She has a history of prior inferior ID, prior PCI with subsequent three-vessel CABG and [...] DATE CREATED AUTHOR 03/26/2018 [facility] DATE CREATED AUTHOR AUTHOR'S ORGANIZ ATION 03/26/2018 [facility] DATE CREATED AUTHOR AUTHOR'S ORGANIZ ATION 08/02/2022 [facility] DATE CREATED AUTHOR AUTHOR'S ORGANIZ ATION 08/17/2022 [facility] DATE CREATED AUTHOR AUTHOR'S ORGANIZ ATION 10/17/2022 [facility] DATE CREATED AUTHOR AUTHOR'S ORGANIZ ATION 06/23/2023 [facility] DATE CREATED AUTHOR AUTHOR'S ORGANIZ ATION 07/16/2023 [facility] DATE CREATED AUTHOR AUTHOR'S ORGANIZ ATION 01/19/2024 [facility] DATE CREATED AUTHOR AUTHOR'S ORGANIZ ATION 03/07/2024 [facility] DATE CREATED AUTHOR AUTHOR'S ORGANIZ ATION 09/15/2024 [facility] DATE CREATED AUTHOR AUTHOR'S ORGANIZ ATION 10/16/2024 [facility] DATE CREATED AUTHOR AUTHOR'S ORGANIZ ATION 01/22/2025 [facility] DATE CREATED AUTHOR AUTHOR'S ORGANIZ ATION 06/15/2025 [facility] DATE CREATED AUTHOR AUTHOR'S ORGANIZ ATION 06/24/2025 [facility] DATE CREATED AUTHOR AUTHOR'S ORGANIZ ATION 07/25/2025 [facility] Care Teams (unrecognized sec tion and content) [...] DateEnd Date Ashley Grigsby MD [address] [place] [address] PCP - GeneralFamily Qwzgctcg44/19/19Team MemberRelationshipSpecialtyStart Date End Date Ashley Grigsby MD [address] [place] [address] PCP - GeneralFamily Tynsyknh55/19/19Team MemberRelationshipSpecialtyStart Date End Date Ashley Grigsby MD [address] [place] [address] PCP - Sglgszk08/17/21Team MemberRelationshipSpecialtyStart DateEnd Date Ashley Grigsby MD [address] [place] [address] PCP - Bytohrq61/17/21Team MemberRelationshipSpecialtyStart DateEnd Date Ashley Grigsby MD [address] [place] [address] PCP - Prqsaek91/17/21 Anita Hammonds, RN Care ManagerCase Wzpcxjmesn92/22/24Team MemberRelationshipSpecialtyStart DateEnd Date Ashley Grigsby MD [address] [place] [address] PCP - General02/22/17Team MemberRelationshipSpecialtyStart DateEnd Date Ashley Grigsby MD [address] [id number] PCP - General02/22/17Team MemberRelationshipSpecialtyStart DateEnd Date Ashley Grigsby MD [address] [place] [address] PCP - General02/22/17Team MemberRelationshipSpecialtyStart DateEnd Date Ashley Grigsby MD [address] [phone] PCP - GeneralFamily Qpxkjmcw49/14/23Team MemberRelationshipSpecialtyStart Date End Date Ashley Grigsby MD [address] [facility] [place] [place] [address] PCP - GeneralFamily Euvzojgb53/14/23Team MemberRelationshipSpecialtyStart Date End Date Ashley Grigsby MD [address] [facility] [place] [address] PCP - GeneralFamily Medicine02/13/25Team MemberRelationshipSpecialtyStart DateEnd Date Ashley Grigsby MD [address] [facility] [place] [address] PCP - GeneralFamily Medicine02/13/25Team MemberRelationshipSpecialtyStart DateEnd Date Ashley Grigsby MD [address] [facility] [place] [address] PCP - GeneralFamily Medicine02/13/25Team MemberRelationshipSpecialtyStart DateEnd Date Ashley Grigsby MD [address] [facility] [address] PCP - GeneralFamily Medicine02/13/25Team MemberRelationshipSpecialtyStart DateEnd Date Ashley Grigsby MD [address] [facility] [address] PCP - GeneralFamily Medicine02/13/25Team MemberRelationshipSpecialtyStart DateEnd Date Ashley Grigsby MD [address] [place] [address] PCP - GeneralFamily Medicine02/13/25 REASON FOR VISIT (unrecogniz ed section and content) SpecialtyDiagnoses / ProceduresReferred By ContactReferred To Contact Diagnoses Post-menopausal bleeding Inclusion cyst Post-menopausal bleeding [N95.0] Inclusion cyst [L72.0] Procedures [place] HYSTEROSCOPY BX ENDOMETRIUM&/POLYPC W/WO D&C [place] DESTRUCTION BENIGN LESIONS UP TO 14 DILATATION AND CURETTAGE HYSTEROSCOPY-REMOVAL OF INCLUSION CYST Gaby Phillips, DO [address] [place] [address] [facility] [address] [place] [address] Referral IDStatusReasonStmuscle shoals DateExpiration DateVisits RequestedVisits [id number] / Procedures Referred By ContactReferred To ContactCardiology Diagnoses Atherosclerosis of coronary artery of [place] heart without angina pectoris, unspecified vessel or lesion type History of coronary artery bypass graft Procedures Follow Up In Cardiology Celso Garibay, [address] [place] [address], [address] [address] Phone: tel: fax: Celso Garibay, DO [address] [facility] [address], [address] [address] Phone: tel: fax: Referral IDStatusReasonBay Minette DateExpiration DateVisits RequestedVisits [id number]/14/202311/355585BigoexKfikspczCexogo-kiSHYY discharge 08/22ReasonCommentsMed RefillReasonCommentsPainReasonCommentsPain Ordered Prescriptions (unrec ognized [...] BE BASED ON THE PRIMARY CLINICAL RECORDS. [facility]. provides no warranty or guarantee of the accuracy or completeness of information in this document.
== END 2025-07-29 14:45 | disposition home or self-care (01) ==
LOC: MAMMO 14:44
PROVIDERS: PCP Family Medicine; Visit Provider Family Medicine
DX: Z00.00 Encounter for general adult medical examination without abnormal findings (principal); Z12.31 Encounter for screening mammogram for malignant neoplasm of breast; R92.8 Other abnormal and inconclusive findings on diagnostic imaging of breast
CPT/HCPCS: 77063; 77067; G0328; G0463

== ENCOUNTER 2025-07-29 17:06 | Outpatient (OUT) | payer BC, SELFPAY ==
--- OUTSIDE RECORDS SUMMARY | 2024-09-10 09:15 | XMS_ITS | Continuity of Care Document ---
Author Organization [facility] Address [address] [facility] [place] [address] Phone Care Team Providers Care Bariatric Physician Name Role Phone Johanna Raygoza CNP Unavailable [...] Providers Copied on Encounter OFFICE/OUTPATI ENT VISIT, [facility], [address] [facility] [address], [place], [place], [address], [place] tel:[phone] [facility] No Information Idalmis Spencer. [address] [facility] [address], [place], [address], [place]. tel:[phone] Referring Provider: Johanna Raygoza, [address] [facility] [address], [place], [address]. tel:[phone] OFFICE/OUTPATI ENT VISIT, [facility], [address], [place], [place], [address], [place] tel:[phone] [facility] No Information Idalmis Spencer. [address], [place], [place], [address], [place]. tel:[phone] Referring Provider: Johanna Raygoza, [facility] [address], [place], [address]. tel:[phone] OFFICE/OUTPATI ENT VISIT, [facility], [address] [place] [address] [address], [place], [place], [address], [place] tel:[phone] [facility] No Information Idalmis Spencer. [address] [facility] [address], [place], [place], [address], [place]. tel:[phone] Referring Provider: Johanna Raygoza, [facility] [address] [facility] [address], [place], [address]. tel:[phone] OFFICE/OUTPATI ENT VISIT, [facility], [address] [facility] [address], [place], [place], [address], [place] tel:[phone] [facility] No Information Idalmis Spencer. [address] [facility] [address], [place], [place], [address], [place]. tel:[phone] Referring Provider: Johanna Raygoza, [address] [facility] [address], [place], [address]. tel:[phone] OFFICE/OUTPATI ENT VISIT, [facility], [address] [facility] [address], [place], [place], [address], [place] tel:[phone] [facility] No Information Idalmis Spencer. [address], [place], [place], [address], [place]. tel:[phone] Referring Provider: Johanna Raygoza, [address], [place], [address]. tel:[phone] OFFICE/OUTPATI ENT VISIT, [facility], [address] [place] [address] [address], [place], [place], [address], [place] tel:[phone] [facility] No Information Idalmis Spencer. [address] [place] [address] [address], [place], [address], [place]. tel:[phone] Referring Provider: Johanna Raygoza, [address] [place] [address] [address], [place], [address]. tel:[phone] OFFICE/OUTPATI ENT VISIT, [facility], [address] [place] [address] [address], [place], [address], [place] tel:[phone] [facility] No Information Idalmis Spencer. [address] [place] [address] [address], [place], [place], [address], [place]. tel:[phone] Referring Provider: Johanna Raygoza, [address] [place] [address] [address], [place], [address]. tel:[phone] [facility], [address] [place] [address] [address], [place], [place], [address], [place] tel:[phone] [facility] No Information Idalmis Spencer. [address] [place] [address] [address], [place], [place], [address], [place]. tel:[phone] Referring Provider: Johanna Raygoza, [address] [place] [address] [address], [place], [address]. tel:[phone], [address] [place] [address] [address], [place], [place], [address], [place] tel:[phone] [facility] No Information Idalmis Spencer. [address] [place] [address] [address], [place], [address], [place]. tel:[phone] Referring Provider: Johanna Raygoza, [address] [place] [address] [address], [place], [address]. tel:[phone] [facility], [address] [place] [address] [address], [place], [place], [address], [place] tel:[phone] [facility] IP No Information Cady Mccurdy. [address] [place] [address] [address], [place], [place], [address], [place]. tel:[phone] Referring Provider: Kaz De Los Santos, [address] [place] [address] [address], [place], [address]. tel:[phone] [facility] [employer] [facility], [address] [place] [address] [address], [place], [address], [place] tel:[phone] [facility] IP No Information Idalmis Spencer. [address] [place] [address] [address], [place], [address], [place]. tel:[phone] Referring Provider: Johanna Raygoza, [address] [place] [address] [address], [place], [address]. tel:[phone] OFFICE/OUTPATI ENT VISIT, [facility], [address] [place] [address] [address], [place], [address], [place] tel:[phone] [facility] No Information Cady Mccurdy. [address] [place] [address] [address], [place], [place], [address], [place]. tel:[phone] Referring Provider: Kaz De Los Santos, [address] [place] [address] [address], [place], [address]. tel:[phone] OFFICE/OUTPATI ENT VISIT, [facility], [address] [place] [address] [address], [place], [address], [place] tel:[phone] [facility] No Information Cady Mccurdy. [address] [place] [address] [address], [place], [address], [place]. tel:[phone] Referring Provider: Kaz De Los Santos, [address] [place] [address] [address], [place], [address]. tel:[phone] OFFICE CONSULTATION [facility], [address], [place], [place], [address], [place] tel:[phone] [facility] No Information Cady Mccurdy. [address] [facility] [address], [place], [place], [address], [place]. tel:[phone] Referring Provider: Kaz De Los Santos, [address] [facility] [address], [place], [address]. tel:[phone] Family History Family Member Type Diagnosis Age At Onset No Information Payers Payer name Insurance type Covered constitution party ID Raad gomez(eva Jones [id number] Social History Type Description Quantity Date Captured [...]
--- OUTSIDE RECORDS SUMMARY | 2025-07-20 13:00 | XMS_ITS ---
Author Organization [facility] [place] Address [address] [place] [address] Care Team Providers Care Matrix Inspector Name Role Phone Deacon Dejesus Primary Care Provider [phone] Allergies Allergen (clinical drug ingredient) Drug/Non Drug Allergy documented on EMR Reaction Allergy Type Onset Date Status rosuvastatin Crestor elevated LFT Drug Allergy ActiveLevaquinthrushDrug AllergyActivebaclofenBaclofenSOBDrug AllergyActiveLatex LatexUnknownAllergyActiveSubstance with sulfonamide structure and antibacterial mechanism of action (substance)Sulfa AntibioticshivesDrug AllergyActive Penicillinrash/lethargicDrug AllergyActive Results Component Value Reference Range Notes AMYLASE Reviewed date:07/22/2025 05:55:27 PM Interpretation: Performing Lab: Notes/Report: [facility] , Amylase 173 25-115 U/L Performing Lab:see noteML - [facility] LBLIPASE Reviewed date:07/22/2025 05:55:27 PM Interpretation: Performing Lab: Notes/Report: [facility] ,Iqdrqb918.016.0-77.0 U/LPerforming Lab:see noteML - [facility] LB REASON FOR VISIT annual, Needs disability ppw redone, Is on veggie and fruit diet- still with a lot of pain Medications Medication SIG (Take, Route, Frequency, Duration) Notes Start Date End Date Status Citalopram Hydrobromide 40 MG 1 tablet Orally On ce a day; Duration: 30 days ActiveCevimeline HCl 30 MG1 capsule Orally qid; Duration: 90 days02/12/2024 ActiveAspirin Low Dose 81 MGOral; Duration: 90 DaysActivetraMADol HCl 50 MG1 tablet as needed Orally 4 times a day; Duration: 7 days01/24/2024ctive Tamsulosin HCl 0.4 MG1 capsule Orally BID; Duration: 90 daysActiveOndansetron 4 MG1 tablet on the tongue and allow to dissolve Orally qid15Active PreserVision AREDSActivePancrelipase (Peo-Ofde-Oczt) [address] UNIT1 capsule Orally ac and hs09/25/2024ctiveoxyCODONE HCl 5 MGOral; Duration: 6 DaysActive RABEprazole Sodium 20 MGTAKE 1 TABLET TWICE A DAY; Duration: 90 daysActive Nystatin 192691 UNIT/GM1 application Externally Twice a day; Duration: 30 days 11/12/2023ctiveNitroglycerin 0.4 MGplace 1 tablet under the tongue if needed every 5 minutes for nimco... (REFER TO PRESCRIPTION NOTES).Sublingual; Duration: 30 DaysActiveMometasone Furoate 0.1 % 1 application Externally BID; Duration: 30 days Thin application to area of rash 5ActiveHyoscyamine Sulfate 0.125 MG1-2 tabs SL SL every 4 hrs PRN abd pain5ActivehydroCHLOROthiazide 25 MGTAKE 1 TABLET BY MOUTH EVERY MORNING; Duration: 30ActiveFluticasone Propionate 50 MCG/ACTINSTILL 1 SPRAY IN EACH NOSTIRL TWICE A DAY.; Duration: 90 daysActiveEstradiolActiveDiclofenac Sodium 3 %1 application Externally Twice a day; Duration: 30 days05/15/2025 ActiveClopidogrel Bisulfate 75 MG1 tablet Orally Once a day4Active hydroCHLOROthiazide 12.5 MGOral; Duration: 90 DaysActive Social History Tobacco Use: Social History Observation Description Date Details (start date - stop date) Never Smoker NA - NA Tobacco Use/Smoking Question Answer Notes Patient is a nonsmoker Problems Problem Type SNOMED Code ICD Code Onset Dates Problem Status W/U Status Risk Notes Problem Well adult (872104890) Well adult (Z00.00 ) Activeconfirmed Vital Signs Weight 184.4 lbs 07/20/2025 Height 63 in 07/20/2025 Blood pressure systolic 132 mm Hg 07/20/20 25 Blood pressure diastolic 86 mm Hg 025 BMI 32.66 kg/m2 07/20/2025 Encounters Encounter Location Date Provider Diagnosis [facility] [address] [place] [address] 07/20/2025 Deacon Dejesus Well adult Z00.0 0 Assessments Encounter Date Diagnosis (ICD Code) Assessment Notes Treatment Notes Treatment Clinical Notes Section Notes 07/20/2025 Well adult (ICD-10 - Z00.00) still iwht chronic orcnn7hexsznsu Plan Of Treatment Treatment Notes Assessment Notes Well adult still iwht chronic p jvne5dsiabkxs Pending Test Test Name Order Date HEMOGLOBIN A1C (GLYCO) 07/20/2025 IRON, TOTAL 07/20/2025 LIPID PANEL (CHOL/TRIG/HDL/LDL) 07/20/20 25 VITAMIN D, 25 LEVEL (TOTAL) 07/20/2025 Insulin Level 07/20/2025 STOOL OCCULT BLOOD 07/20/2025 THYROID PANEL (T4/TSH/FREE T3) 5 MM screening mammo BI 07/20/2025 CMP (COMP MET MIKE) w/eGFR CKD-EPI 2024 CBC WITH DIFF 07/20/2025 Progress Notes * Tiarra SALEEM CDOB:[birth year] (60 yo F)Acc No.[id number]:07/20/2025 Progress Note Patient: Tiarra JIM :?Ziggy Dejesus ([facility]), MDDOB:1965???Age: 60 Y???Sex:FemaleDate:07/20/2025Phone:[phone]:[address], [place]-[address]Hcedk In:05:01 PM ESTCheck Out:05:37 PM EST Subjective: * Chief Complaints: * A nnualNeeds disability ppw redoneIs on veggie and fruit diet- still with a lot of pain * ROS: ???EENT:?hearing changes?denies.?visual changes?denies. non-healing mouth sores?denies.?swollen glands or neck lumps?denies.?hoarseness?denies.?sore throat?denies.?difficulty swallowing?denies.?nose bleeds?denies.?nasal congestion?denies.?ear ache?denies.?ear discharge denies.?ringing in ears?denies.?light sensitivity?denies.?eye pain?denies.?blurring?denies.?eye irritation?denies.?double vision?denies. vision loss?denies.?General/Constitutional:?Sweats:?Denies.?Fatigue?denies.?Sleep proble ms?denies.?Anorexia?denies.?Malaise?denies.?Weight loss?denies. Fatigue or Weakness?denies.?Fever or Chills?denies.?Cardiovascular:?Shortness of Breath w/lying flat?denies.?Lightheadedne ss/dizziness?denies.?Chest tightness/ heavy pressure?denies.?Swelling of legs, a nkles, or feet?denies.?Waking up with shortness of breath?denies.?Chest pain&#16 0;denies.?Palpitations?denies.?Weight gain?denies.?Respiratory:?Chronic or frequent cough?denies.?Coughing up blood&#1 60;denies.?Difficulty breathing?denies.?Productive cough?denies.?Snoring&#1 60;denies.?Shortness of breath that awakens from sleep (PND)?denies.?Chest pain? denies.?Sputum production?denies.?Wheezing?denies.?Musculoskeletal:?Joint pain?denies.?Joint Fluid?denies.?Backpain?denies.?Knee pain?denies.?Neck pain?denies.?Joint Stiffness?denies.?Muscle cramps?denies.?Weakness of muscles?denies.?Arthritis?denies.?Muscle aches?denies.?Pain in shoulder(s)?denies.?Swollen joints?denies.? * Active Problem List I10 Hypertension Modified On:11/12/2023W/U Status:cwjbfjzrwZ72.9GERD (gastroesophageal reflux disease) Modified On:11/12/2023 Status:vvawjgvxnV84.10CAD (coronary artery disease) Modified On:11/12/2023 Status:cmllskyloD56.5Cardiomyopathy, ischemic Modified On:11/12/2023 Status:loswivoyfP78.1Hypertriglyceridemia Modified On:11/14/2023 Status:kxtzxticiO41.50Arthralgia Modified On:11/12/2023 Status:baegaafahW94.00Hypercholesteremia Modified On:11/12/2023 Status:wunbqlcvyQ18.9Controlled type 2 diabetes mellitus Modified On:11/12/2023 Status:wuteyfhzfV46.2Acute myocardial infarct greater than 3 months ago Modified On:11/12/2023 Status:ljhfkmblnW28.9Benign neoplasm of connective and other soft tissue, unspecified Modified On:03/13/2023 Status:jifdsvdrrV80.0Acute UTI (urinary tract infection) Modified On:11/12/2023 Status:qxwlrzegvK33.9Abdominal pain Modified On:01/24/2024 Status:ymyimsfeqJ28.90Acute pancreatitis Modified On:01/25/2024 Status:xukggujoaH74.1Chronic pancreatitis Modified On:02/12/2024 Status:cpvfjdtkxA92.00Hypercholesterolemia Modified On:02/13/2024 Status:vynsxjckkQ26.9Depression Modified On:02/13/2024 Status:pgywlyefsO14NO (high blood pressure) Modified On:03/05/2024 Status:lmohpwjynW48.11Right upper quadrant pain Modified On:04/28/2024U Status:jypvkgwfoL65.5Hyperlipidemia Modified On:10/13/2024 Status:umgiyewihM75.5Hyperlipemia Modified On:10/17/2024 Status:sfteewjxzL64Gorjyn essential HTN Modified On:10/17/2024U Status:hjeropndeK92.83Snoring Modified On:01/08/2025 Status:fneiilrzsN39.83Fatigue Modified On:01/08/2025W/U Status:hbjqcezrrZ22.00Well adult Modified On:07/20/2025W/U Status:confirmed * Medical History: * Surgical History: [...] 2 sister(s) . . * Social History: ???Tobacco Use:?Tobacco Use/Smoking?Patient is a?nonsmoker * Medications: T akingAspirin Low Dose(Aspirin) 81 [...] nimco... (REFER TO PRESCRIPTION NOTES). Sublingual Nystatin 757412 UNIT/GM Powder 1 application Externally Twice a day Ondansetron 4 MG Tablet Disintegrating 1 tablet on the tongue and allow to dissolve Orally qid oxyCODONE HCl 5 MG Tablet Oral Pancrelipase (Ylc-Cxud-Irwh) [address]86[address] UNIT Capsule Delayed Release Particles 1 capsule [...] (REFER TO PRESCRIPTION NOTES). Sublingual Taking Nystatin 384488 UNIT/GM Powder 1 application Externally Twice a day Taking Ondansetron 4 MG Tablet Disintegrating 1 tablet on the tongue and allow to dissolve Orally qid Taking oxyCODONE HCl 5 MG Tablet Oral Taking Pancrelipase (Nxg-Smjb-Rqmc) [address] UNIT Capsule Delayed Release Particles 1 capsule [...] - Allergyno[Allergies Verified] Objective: * Vitals: W t:184.4lbs, Ht: 63 in, BP:132/86mm Hg, BMI:32.66Index, Ht-cm: 160.02 cm, Wt-k.64 kg. * Examination: ???Physical Exam: ?GENERAL:?well developed, well nourished, in no acute distress.?HEAD:?normocephalic/atraumatic.?EYES:?pupils equal, round and reactive to light, conjunctivae and sclerae normal.?EARS:?no deformity or lesion of external ear, canals and TM appear normal bilaterally, TM's intact, not inflamed with normal light reflex, hearing grossly normal to conversational speech.?NOSE:?no deformity, discharge, inflammation, or lesions. ?MOUTH:?mucous membranes moist, normal oropharynx and posterior pharynx without lesions or exudates, tongue normal, dentition normal.?NECK:?neck supple, no masses or palpable cervical nodes, trachea midline, thyroid without nodules, masses, tenderness, or enlargement.?CHEST:?no chest wall deformity, no chest wall tenderness. ?LUNGS:?normal respiratory effort and clear to auscultation, no wheezes, rales, or rhonchi, good air exchange.?CARDIO:?regular rate and rhythm, normal S1 and S2, nor murmur, rub, or gallop.?PULSES:?normal capillary refill.?ABDOMEN:?Mild diffuse tendnerss.?MUSCULOSKELETAL:?no deformity or scoliosis noted, normal range of motion, joints normal, no erythema, edema, effusion, or ecchymosis.?EXTREMITY:?no clubbing, cyanosis, edema, or deformity withnormal ROM in both upper and lower bilateral extremities.?NEUROLOGIC:?grossly normal.?SKIN:?no rashes, ulcerations, or suspicious lesions.?LYMPH NODES:?no cervical adenopathy, nodes normal.?MENTAL STATUS:?alert and oriented x3, normal mood and affect.? Assessment: * Assessment: 1.?Well adult - Z00.00 (Primary)??? Plan: * Treatment: ?LAB: HEMOGLOBIN A1C (GLYCO) ?LAB: IRON, TOTAL ?LAB: LIPID PANEL (CHOL/TRIG/HDL/LDL) ?LAB: VITAMIN D, 25 LEVEL (TOTAL) ?LAB: Insulin Level ?LAB: STOOL OCCULT BLOOD ?LAB: THYROID PANEL (T4/TSH/FREE T3) ?LAB: CMP (COMP MET MIKE) w/eGFR CKD-EPI ?LAB: CBC WITH DIFF ?LAB: AMYLASE (Collection Date & Time - 07/22/2025 10:20 AM) ?LAB: LIPASE (Collection Date & Time - 07/22/2025 10:20 AM) ?Imaging: MM screening mammo BI Notes: still iwht chronic yjokd6klgbkbpi?? * Labs: * L ab: AMYLASE (Collection Date & Time - 07/22/2025 10:20 AM) ?Lab: LIPASE (Collection Date & Time - 07/22/2025 10:20 AM) * Procedure Codes: 3 079F DIAST BP 80-89 MM IN5330V SYST BP GE 130 - 139MM HG * Preventive Medicine: ??Screenings/Counseling:?BMI ACTION PLAN?Above Normal BMI Follow-up?Dietary management education, guidance, and counseling * * Sign off status: CompletedVisit Status:?CHK (Check Out) true * Provider: Bharti Dejesus (TTC)MD Date: 1 Generated for Printing/Faxing/eTransmitting on:?07/29/2025 05:10 PM EDT History and Physical Notes * Examination CategorySub-CategoryDetailNotesCategory NotesPhysical ExamGENERAL:well developed, well nourished, in no acute distressHEAD:normocephalic/atraumatic EYES:pupils equal, round and reactive to light, conjunctivae and sclerae normal EARS:no deformity or lesion of external ear, canals and TM appear normal bilaterally, TM's intact, not inflamed with normal light reflex, hearing grossly normal to conversational speechNOSE:no deformity, discharge, inflammation, or lesionsMOUTH:mucous membranes moist, normal oropharynx and posterior pharynx without lesions or exudates, tonguenormal, dentition normalNECK:neck supple, no masses or palpable cervical nodes, trachea midline, thyroid without nodules, masses, tenderness, or enlargementCHEST:no chest wall deformity, no chest wall tendernessLUNGS:normal respiratory effort and clear to auscultation, no wheezes, rales, or rhonchi, good air exchangeCARDIO:regular rate and rhythm, normal S1 and S2, nor murmur, rub, or gallopPULSES:normal capillary refillABDOMEN:Mild diffuse tendnerssRECTAL:MUSCULOSKELETAL:no deformity or scoliosis noted, normal range of motion, joints normal, no erythema, edema, effusion, or ecchymosis EXTREMITY:no clubbing, cyanosis, edema, or deformity with normal ROM in both upper and lower bilateral extremitiesNEUROLOGIC:grossly normalSKIN:no rashes, ulcerations, or suspicious lesionsLYMPH NODES:no cervical adenopathy, nodes normalMENTAL STATUS:alert and oriented x3, normal mood and affect
--- OUTSIDE RECORDS SUMMARY | 2025-07-29 17:10 | XMS_ITS | Clinical Summary ---
Author Organization [facility] Address [address] [place] [address] Care Team Providers Care Canteen Operator Name Role Phone Unavailable Primary Care Provider Unavailabl e Encounters DateTypeDepartmentCare FeexInzhrhqrqsd78/21/2025Telephone [facility] [address] [place] [address] Mirian Pitts Outside Medical Records Mdefsim9706/18/2025Telephone [facility] Bowel Disease [facility] [address] [place], [place] [id number] Mirian Pitts Outside Medical Records Requestfrom Last 3 Months Social History Tobacco UseTypesPacks/DayYears UsedDateSmoking Tobacco: Never Assessed CommentsUnknownSex and Gender InformationValueDate RecordedSex Assigned at Not on fileLegal QdwHwvzfl68/03/2013 2:50 PM ESTGender IdentityNot on fileSexual OrientationNot on file Plan of Treatment DateTypeDepartmentCare Team (Latest Contact Info)Cwxcgeekajm39/31/2025 3:00 PM EDTOffice Visit [facility] [address] [place] [address] Ramiro Britton MD [address] [place] [address] Health MaintenanceDue DateLast DoneCommentsHEPATITIS C VIRUS YVOVPGLGE1964 QUIPWAH9606/09/1964HIV SCREENING IKLJHCEDKK72/09/1979TDAP (ADULT)1983 CERVICAL CANCER SCREENING SWOKMPGBBC88/09/1985LIPID LGFQHXPLW96/09/2004 COLORECTAL CANCER SCREENING TZHVXZDPQG05/09/2009PNEUMOCOCCAL VACCINE SERIES (2 of 2 - PCV)MAMMOGRAM SCREENING PDUUZOZJBC58/15/2024 08/15/2023, 07/24/2022, 10/28/2020, Additional history existsCOVID-19 VACCINE ( - 2024- season)2025INFLUENZA VACCINE (#1)509/01/2024, 06/05/2023, 06/16/2022, Additional history existsRSV VACCINE (1 - 1-dose 75+ series)2039PNEUMOCOCCAL VACCINE IHOZSUSvtgefkrgwlt29/09/2017ZOSTER (SHINGLES) CKTGBMBYfmjkyvcm05/21/2022, 06/16/2022HEP B VACCINEAged OutNo longer eligible based on patient's age to complete this topic Insurance
--- OUTSIDE RECORDS SUMMARY | 2025-07-29 17:10 | XMS_ITS | Clinical Summary ---
Author Organization [facility] Address [address], [address] [place] [address] Care Team Providers Care Fish Cake Maker Name Role Phone Ziggy Dejesus MD Primary Care Provider +-4 Allergies Active AllergyReactionsCriticalityNoted DateCommentsBaclofenOther (See Comments) 07/10/2017 bradypnea Sulfamethoxazole-Pwvbhkrupjhb12/19/2019Rosuvastatin Ktpbvft6808/19/2019Fenofibrate 05/15/2023 Other reaction(s): (Louis) 08/08/2011 LatexAnaphylaxis,Shortness Of IyfrjkApzc66/16/2006LevofloxacinOther (See Comments)07/10/2017 thrush ZgfmrudndvePorvi83/14/2006Phenazopyridine Hcl03/14/20067746Eioboziukzy72/14/2006 PT TOLERATES CRESTOR Sulfa AntibioticsOther (See Comments)10/12/20213347LfsdzfrtzdRaduOpi71/04/2023 Ithtjuibdpye90/01/2023 Other reaction(s): Hives Medications MedicationSigDispense QuantityRefillsLast FilledStart [...] = 0.6 oz pure alcohol)PHQ-2AnswerDate RecordedPHQ-9 Total Yhqva903Interpersonal Safety Domain Source: IP Abuse ScreeningAnswerDate RecordedRead-Only, Retired: Physical LhwtlKrtyov89/18/2023Read-Only, Retired: Verbal TnivfXlkxij31/18/2023 Read-Only, Retired: Emotional dwtktBxjptv94/18/2023Read-Only, Retired: Financial RjfekDepuyl08/18/2023Read-Only, Retired: Sexual gfddzBxawnx97/18/2023 CommentsNoSex and Gender InformationValueDate RecordedSex Assigned at Qhqhts4510/26/2024 4:50 PM ESTLegal HckQkvffu11/07/2013 12:32 PM ESTGender IdentityNot on fileSexual OrientationNot on file Last Filed Vital Signs Vital SignReadingTime TakenCommentsBlood Fdqtbobn498/8210/28/2024 4:46 PM EST Djufn376806/18/2023 3:15 PM DIAAlaxsjyjuis26.1 ??C (97 ??F)06/18/2023 2:36 PM EDT Respiratory Fqwq991106/18/2023 3:15 PM EDTOxygen Leovtbcrjy77%06/18/2023 3:15 PM EDTInhaled Oxygen Concentration--Tpsgdi18.9 kg (154 lb)10/28/2024 4:46 PM EST Acinpl709 cm (5' 3 )10/28/2024 4:46 PM ESTBody Mass Index27.28010/28/2024 4:46 PM EST Plan of Treatment DateTypeDepartmentCare Team (Latest Contact Info)Knijleobmhw84/03/2026 4:15 PM ESTOffice Visit [facility] Part of [address] [place] [address] Gaby Murry, DO [address] [place] [address] [address] [place], [place] [id number] AnnualHealth MaintenanceDue DateLast QqknUfuqnyatDvuxzv72/09/1974HIV screen 1979Hepatitis C jwjvat7306/09/1982DTaP/Tdap/Td vaccine (1 - Tdap)1983 Diabetes fcemsp4306/09/19997863Lwrylgycofa39/09/2009Colorectal Cancer Fxxbau5706/09/2009 FIT/FOBT: Average risk2009Fecal-DNA (Cologuard): Average risk2009 Sigmoidoscopy/CT qhbnutluavfe28/09/2009Pneumococcal 50+ years Vaccine (2 of 2 - PCV)Respiratory Syncytial Virus (RSV) or age 60 yrs+ (1 - Risk 60-74 years 1-dose series)4Pap smear02/07/2025 02/07/2022, 08/19/2019Flu vaccine (#1)509/01/2023, 06/16/2022, 2022, Additional history existsCOVID-19 Vaccine ( season) 511/10/2020, 01/29/2021, 1Breast cancer nojkyj0508/15/2025 08/15/2023, 07/24/2022, 07/28/2021, Additional history existsDepression Screen 6010/28/2024, 5Cervical cancer pfnlrq9402/07/2027HPV (without or with Pap)705/07/2022, 08/19/2019Pneumococcal 0-49 years Vaccine Ucnvxborpmil84/09/2017Shingles pgynryoVieavxnor95/21/2022, 06/16/2022Hepatitis A vaccineAged OutNo longer eligible based [...] PAPILLOMAVIRUS (HPV) DNA PROBE THIN PREP HIGH NXRAKwhpxuy62/10/2022 8:18 AM EDT LICENSED EMBALMER HMWAZLSJZsexxho27/10/2022 8:18 AM EDT HM OAGLPPMWNFNTiiphnt44/28/2021from Last 3 Months or Most Recently Relevant to Health Maintenance Results * Human papillomavirus (HPV) DNA probe thin prep high risk (02/07/2022 8:18 AM EDT)ComponentValueRef RangeTest MethodAnalysis TimePerformed AtPathologist SignatureSpecimen Description.GENITAL - NOT PNLXSGJHU74/10/2022 8:18 AM EDT [facility] LABORATORIESHPV Sample.THIN PREP02/07/2022 8:18 AM EDKochAbo HPV, Genotype 16Not DetectedNot Kudbkcco47/10/2022 8:18 AM EDUnravel Data SystemsHPV, Genotype 18Not DetectedNot Mbykjwuo05/10/2022 8:18 AM EDT [facility]IESHPV, High Risk OtherNot DetectedNot Bprcrbhm82/10/2022 8:18 AM EDUnravel Data SystemsHPV, Iwspsogpklqvcu21/10/2022 8:18 AM EDFalafel Games LABORATORIESComment: This test amplifies and detects DNA [...] Collection TimeReceived TimeSPECIMEN FROM GENITAL SYSTEM / Wnrehei3602/07/2022 8:18 AM EDT Narrative Authorizing ProviderResult TypeResult StatusCarmen F Jeanmarie DOHEMATOLOGY ORDERABLESFinal ResultPerforming OrganizationAddressCity/State/ZIP CodePhone Number [facility] [address] [place] [address], [facility] [phone] [facility] [address] [id number] [phone] * LICENSED EMBALMER Cytology (02/07/2022 8:18 AM EDT)ComponentValueRef RangeTest Method Analysis TimePerformed AtPathologist SignatureCytology ReportINTERPRETATION Cervical material, (ThinPrep vial, Imaging-assisted review): Specimen Adequacy: ? Satisfactory for evaluation. ? -Endocervical/transformation zone component is absent. Descriptive Diagnosis: ? Negative for intraepithelial lesion or malignancy. ?? Commercial Green Retrofit Architect: ?? EKNYA BECERRA(ASCP) Electronically Signed Out ey02/10/2022 Procedure/Addendum HPV [...] Imaging-assisted review) Clinical History Postmenopausal Z01.419 Routine drafting technician exam without abnormal findings Co-Test: ??ThinPrep Pap with high risk HPV testing LMP: ??05/19/2016 GYNECOLOGIC CYTOLOGY REPORT Patient Name: JOSE ALBERTO SALEEM Med Rec: [id number] Path Number: [id number] EUGENE ??LABORATORIES CONSULTING PATHOLOGISTS [facility] [address] [place] [address]. ??[place], [place] [address] [facility] LABORATORIESSpecimen (Source)Anatomical Location / LateralityCollection Method / VolumeCollection TimeReceived TimeCERVICAL LOLIQJDZ80/10/2022 8:18 AM EDT02/08/2022 8:18 AM EDT Narrative Authorizing ProviderResult TypeResult StatusCarmen F Deuce-Tello DO PATHOLOGY/CYTOLOGY ORDERABLESFinal ResultPerforming OrganizationAddress City/State/ZIP CodePhone Number [facility] [address] [place] [address], [facility] [phone] [facility] [address] [place] [address], [facility] [phone] * HM MAMMOGRAPHY (07/28/2021)Anatomical RegionLateralityModalityOther Narrative Authorizing ProviderResult TypeResult StatusCarmen F Deuce-Tello DOHEALTH MAINTENANCEFinal Result from Last 3 Months or Most Recently Relevant to Health Maintenance Insurance Advance Directives * Full Code (Latest Code Status on File) Date ActivatedDate InactivatedComments06/18/2023 1:21 PM06/18/2023 5:57 PM Care Teams Team MemberRelationshipSpecialtyStart DateEnd Date Ziggy Dejesus MD [address] [place] [address] PCP - GeneralFamily Ckkoktlx52/19/19
--- OUTSIDE RECORDS SUMMARY | 2025-07-29 17:10 | XMS_ITS | Patient Health Record ---
Author Organization [facility] in [place] Address [address] [place] [address] Care Team Providers Care Pulley Man Name Role Phone Deacon Dejesus Primary Care Provider [phone] Allergies Allergen (clinical drug ingredient) Drug/Non Drug Allergy documented on EMR Reaction Allergy Type Onset Date Status rosuvastatin Crestor elevated LFT Drug Allergy ActiveLevaquinthrushDrug AllergyActivebaclofenBaclofenSOBDrug AllergyActiveLatex LatexUnknownAllergyActiveSubstance with sulfonamide structure and antibacterial mechanism of action (substance)Sulfa AntibioticshivesDrug AllergyActive Penicillinrash/lethargicDrug AllergyActive Results Component Value Reference Range Notes AMYLASE Reviewed date:07/14/2025 02:10:19 PM Interpretation: Performing Lab: Notes/Report: [facility] , Amylase 136 25-115 U/L Performing Lab:see noteML - [facility] LBCBC AUTO DIFF Reviewed date:07/14/2025 02:10:19 PM Interpretation: Performing Lab: Notes/Report: [facility] ,White Blood Count5.44.0-11.0 10 3/uLRed Blood Count5.264.20-5.40 10 6/uL Uintvwfclr30.712.0-16.0 g/ySVadjiaiiyp04.936.0-48.0 %Mean Corpuscular Pjafre51.2 81.0-99.0 fLMean Corpuscular Qhkdpcaalu56.826.7-34.0 pgMean Corpuscular HGB Conc 33.529.9-35.2 g/dLRed Cell Distribution Width13.211.0-15.0 %Platelet Phlhl235 150-450 10 3/uLMean Platelet Volume9.49.5-13.5 fLNeutrophils Percent Auto58.4 43.0-75.0 %Lymphocytes Percent Auto27.620.5-60.0 %Monocytes Percent Auto9.91.7- 12.0 %Eosinophils Percent Auto3.50.9-7.0 %Basophils Percent Auto0.40.2-2.0 % Immature Granulocytes Pct Auto0.20.0-0.5 %Neutrophils Absolute Auto3.11.4-6.5 10 3/uLLymphocytes Absolute Auto1.51.2-3.8 10 3/uLMonocytes Absolute Auto0.50.3-0.8 10 3/uLEosinophils Absolute Auto0.20.0-0.7 10 3/uLBasophils Absolute Auto0.00.0- 0.1 10 3/uLImmature Granulocytes Abs Auto0.010.00-0.03 10 3/uLPerforming Lab:see noteML - [facility] LBCRP Reviewed date:07/14/2025 02:10:19 PM Interpretation: Performing Lab: Notes/Report: [facility] ,C Reactive Protein<0.50<=0.50 mg/dLPerforming Lab:see noteML - [facility] LBLIPASE Reviewed date:07/14/2025 02:10:19 PM Interpretation: Performing Lab: Notes/Report: [facility] ,Paclpr44.016.0-77.0 U/LPerforming Lab:see noteML - [facility] LBPROF 14(COMP METB) Reviewed date:07/14/2025 02:10:19 PM Interpretation: Performing Lab: Notes/Report: [facility] ,Rybxml495327-323 mmol/LPotassium3.93.5-5.1 mmol/IZrjwqsxv01970-479 mmol/LCarbon Vaelcpa32.221.0-32.0 mmol/LAnion Gap11.4Qmeudfz03507-000 mg/dLBlood Urea Dwterbvx60.07.0-18.0 mg/dLCreatinine0.720.55-1.02 mg/dLEstimated GFR ( [place]>60>=60 mL/min/1.73m 2Estimated GFR (Non- [place]>60>=60 mL/min/1.73m 2BUN Creatinine Ratio25.4Nqrlrwy7.98.5-10.1 mg/dLBilirubin Total0.30.2-1.0 mg/dL Aspartate Amino Yflhzkyjqvf3058-39 U/LAlanine Bzvckwyluntgctgx4284-96 U/L Alkaline Xeujvvmhixd35858-930 U/LTotal Protein7.56.4-8.2 g/dLAlbumin Level3.8 3.4-5.0 g/dLGlobulin3.7Albumin Globulin Ratio1.0Performing Lab:see noteML - [facility] LBAMYLASE Reviewed date:07/22/2025 05:55:27 PM Interpretation: Performing Lab: Notes/Report: [facility] ,Xcmgsgy62642-375 U/LPerforming Lab:see noteML - [facility] LBLIPASE Reviewed date:07/22/2025 05:55:27 PM Interpretation: Performing Lab: Notes/Report: [facility] ,Bwxylm887.016.0-77.0 U/LPerforming Lab:see noteML - [facility] LBCBC AUTO DIFF Reviewed date:08/05/2024 02:30:38 PM Interpretation: Performing Lab: Notes/Report: [facility] ,White Blood Count4.54.0-11.0 10 3/uLRed Blood Count5.024.20-5.40 10 6/uL Qzeveeygxs59.312.0-16.0 g/nBOfeffalqgy32.636.0-48.0 %Mean Corpuscular Iluuzh09.8 81.0-99.0 fLMean Corpuscular Njjoeatxld76.526.7-34.0 pgMean Corpuscular HGB Conc 32.829.9-35.2 g/dLRed Cell Distribution Width12.311.0-15.0 %Platelet Fkqcm419 150-450 10 3/uLMean Platelet Volume9.19.5-13.5 fLNeutrophils Percent Auto61.6 43.0-75.0 %Lymphocytes Percent Auto27.220.5-60.0 %Monocytes Percent Auto6.81.7- 12.0 %Eosinophils Percent Auto4.00.9-7.0 %Basophils Percent Auto0.20.2-2.0 % Immature Granulocytes Pct Auto0.20.0-0.5 %Neutrophils Absolute Auto2.81.4-6.5 10 3/uLLymphocytes Absolute Auto1.21.2-3.8 10 3/uLMonocytes Absolute Auto0.30.3-0.8 10 3/uLEosinophils Absolute Auto0.20.0-0.7 10 3/uLBasophils Absolute Auto0.00.0- 0.1 10 3/uLImmature Granulocytes Abs Auto0.010.00-0.03 10 3/uLPerforming Lab:see note - [facility] LBFERRITIN Reviewed date:08/05/2024 06:07:34 PM Interpretation: Performing Lab: Notes/Report: [facility] ,Quaqichu21.08.0-252.0 ng/mLPerforming Lab:see note - [facility] LB FOLATE Reviewed date:08/05/2024 06:07:34 PM Interpretation: Performing Lab: Notes/Report: [facility] ,Dszopy54.408.60-58.90 ng/mLPerforming Lab:see note - [facility] LB IRON AND TIBC Reviewed date:08/05/2024 06:07:34 PM Interpretation: Performing Lab: Notes/Report: [facility] ,Iron73.050.0-170.0 ug/dLTotal Iron Binding Dtcvuszd686.0250.0-450.0 ug/dL Percent Iron Ycmnljepug82.0Performing Lab:see note - [facility] LB MAGNESIUM Reviewed date:08/05/2024 03:01:27 PM Interpretation: Performing Lab: Notes/Report: [facility] ,Magnesium2.11.8-2.4 mg/dLPerforming Lab:see note - [facility] LB PHOSPHORUS Reviewed date:08/05/2024 03:01:27 PM Interpretation: Performing Lab: Notes/Report: [facility] ,Phosphorus3.82.6-4.7 mg/dLPerforming Lab:see [facility] LB PROF 14(COMP METB) Reviewed date:08/05/2024 03:01:27 PM Interpretation: Performing Lab: Notes/Report: [facility] ,Jqhwpe582853-017 mmol/LPotassium3.93.5-5.1 mmol/DAjblicrd10413-346 mmol/LCarbon Tvvbsnu16.721.0-32.0 mmol/LAnion Gap15.8Mgvdidn72104-426 mg/dLBlood Urea Oarstztt89.07.0-18.0 mg/dLCreatinine0.900.55-1.02 mg/dLEstimated GFR ( [place]>60>=60 mL/min/1.73m 2Estimated GFR (Non- [place]>60>=60 mL/min/1.73m 2BUN Creatinine Ratio21.3Ebenovj1.88.5-10.1 mg/dLBilirubin Total0.40.2-1.0 mg/dL Aspartate Amino Onfgbsdrmup8301-59 U/LAlanine Zlqtlzbcstgctcxf0672-28 U/L Alkaline Lnqemdxjkdy0120-919 U/LTotal Protein7.16.4-8.2 g/dLAlbumin Level3.73.4- 5.0 g/dLGlobulin3.4Albumin Globulin Ratio1.1Performing Lab:[facility] LBVITAMIN D 25 [place] Reviewed date:08/05/2024 06:07:34 PM Interpretation: Performing Lab: Notes/Report: [facility] ,Vitamin D69.2 <20 ng/mL Vit D deficient 20-<30 ng/mL Vit D insufficient 30-100 ng/mL Vit D sufficient >100 ng/mL Potential Toxicity Performing Lab[facility] LBVitamin B12 Reviewed date:08/06/2024 09:18:02 PM Interpretation: Performing Lab: Notes/Report: [facility] ,Vitamin B12>3695288-3556 pg/mL Performed at: - [facility] [id number] [place]: Afshin Martinez PhD, Phone: [phone] Performing Lab:[facility] LBAMYLASE Reviewed date:09/29/2024 08:35:22 PM Interpretation: Performing Lab: Notes/Report: [facility] ,[place]61284-076 U/LPerforming Lab:see [facility] LBLIPASE Reviewed date:09/29/2024 08:35:22 PM Interpretation: Performing Lab: Notes/Report: [facility] ,Nnlria852.016.0-77.0 U/LPerforming Lab:see noteML - [facility] LB LIPID PROFILE Reviewed date:09/29/2024 08:35:22 PM Interpretation: Performing Lab: Notes/Report: [facility] ,Vjkkudaawhdlw411<=150 mg/wSFtwnmfnmeme031<=200 mg/dLHDL Dqrllsvqyzq4263-81 mg/dL > or =60 mg/dl - LOW CARDIOVASCULAR RISK <40 mg/dl - HIGH CARDIOVASCULAR RISK LDL Cholesterol Lcoejkvczi931.0 <100 mg/dl OPTIMAL 100-129 mg/dl NEAR OR ABOVE OPTIMAL 130-159 mg/dl BORDERLINE HIGH 160-189 mg/dl HIGH >190 mg/dl VERY HIGH VLDL LYFLYXSYKQU91.0Chol HDL Ratio4.1 3.3 - 4.4 LOW RISK 4.4 - 7.1 AVERAGE RISK 7.1 - 11.0 MODERATE RISK >11.0 HIGH RISK Performing Lab:see noteML - [facility] LBPROF 14(COMP METB) Reviewed date:09/29/2024 08:35:22 PM Interpretation: Performing Lab: Notes/Report: [facility] ,Eaginn199570-013 mmol/LPotassium4.23.5-5.1 mmol/SBafwblcf84483-150 mmol/LCarbon Xrjjlaj52.421.0-32.0 mmol/LAnion Gap8.5Vlirktl1474-824 mg/dLBlood Urea Nitrogen 16.07.0-18.0 mg/dLCreatinine0.730.55-1.02 mg/dLEstimated GFR ( [place]>60 >=60 mL/min/1.73m 2Estimated GFR (Non- [place]>60>=60 mL/min/1.73m 2BUN Creatinine Ratio21.3Sxuigsh6.88.5-10.1 mg/dLBilirubin Total0.50.2-1.0 mg/dL Aspartate Amino Gmzuqywzhgu6156-06 U/LAlanine Pdbwjcklswicpexp1334-55 U/L Alkaline Dcdczlewjme67553-545 U/LTotal Protein7.56.4-8.2 g/dLAlbumin Level4.0 3.4-5.0 g/dLGlobulin3.5Albumin Globulin Ratio1.1Performing Lab:see noteML - [facility] LBCBC AUTO DIFF Reviewed date:10/01/2024 03:36:44 PM Interpretation: Performing Lab: Notes/Report: [facility] ,White Blood Count6.74.0-11.0 10 3/uLRed Blood Count5.044.20-5.40 10 6/uL Davwqorrml05.412.0-16.0 g/tXCvldcriufd78.436.0-48.0 %Mean Corpuscular Fedsuw42.1 81.0-99.0 fLMean Corpuscular Qpkwvmtqcs86.626.7-34.0 pgMean Corpuscular HGB Conc 33.229.9-35.2 g/dLRed Cell Distribution Width12.311.0-15.0 %Platelet Tdafl320 150-450 10 3/uLMean Platelet Volume9.59.5-13.5 fLNeutrophils Percent Auto62.7 43.0-75.0 %Lymphocytes Percent Auto22.820.5-60.0 %Monocytes Percent Auto10.01.7- 12.0 %Eosinophils Percent Auto4.00.9-7.0 %Basophils Percent Auto0.40.2-2.0 % Immature Granulocytes Pct Auto0.10.0-0.5 %Neutrophils Absolute Auto4.21.4-6.5 10 3/uLLymphocytes Absolute Auto1.51.2-3.8 10 3/uLMonocytes Absolute Auto0.70.3-0.8 10 3/uLEosinophils Absolute Auto0.30.0-0.7 10 3/uLBasophils Absolute Auto0.00.0- 0.1 10 3/uLImmature Granulocytes Abs Auto0.010.00-0.03 10 3/uLPerforming Lab:see noteML - [facility] LBLACTATE or LACTIC ACID Reviewed date:10/01/2024 03:36:44 PM Interpretation: Performing Lab: Notes/Report: [facility] ,Lactate/Lactic Acid1.00.4-2.0 mmol/LPerforming Lab:see noteML - [facility] LBLIPID PROFILE Reviewed date:10/01/2024 03:36:44 PM Interpretation: Performing Lab: Notes/Report: [facility] ,Pekazhnuxosgt00<=150 mg/cDNzktgvmfzlr004<=200 mg/dLHDL Demuzykqfyl8674-17 mg/dL > or =60 mg/dl - LOW CARDIOVASCULAR RISK <40 mg/dl - HIGH CARDIOVASCULAR RISK LDL Cholesterol Wgnzuwxwvr163.0 <100 mg/dl OPTIMAL 100-129 mg/dl NEAR OR ABOVE OPTIMAL 130-159 mg/dl BORDERLINE HIGH 160-189 mg/dl HIGH >190 mg/dl VERY HIGH VLDL TGLBNEGMKIN01.0Chol HDL Ratio3.6 3.3 - 4.4 LOW RISK 4.4 - 7.1 AVERAGE RISK 7.1 - 11.0 MODERATE RISK >11.0 HIGH RISK Performing Lab:see noteML - [facility] LBMAGNESIUM Reviewed date:10/01/2024 03:36:44 PM Interpretation: Performing Lab: Notes/Report: [facility] ,Magnesium2.31.8-2.4 mg/dLPerforming Lab:see noteML - [facility] LB PTT Reviewed date:10/01/2024 03:36:44 PM Interpretation: Performing Lab: Notes/Report: [facility] ,Partial Thromboplastin Time30.222.3-36.2 secPerforming Lab:see noteML - [facility] LBUA RANDOM W or MICROSCOPIC Reviewed date:10/01/2024 03:36:44 PM Interpretation: Performing Lab: Notes/Report: [facility] ,Color UrineLT. YELLOWYELLOWClarity UrineCLEARCLEARSpecific [place] Urine1.010 1.005-1.025pH Urine7.05.0-9.0Protein UrineNEGATIVENEG/TRACE mg/dLGlucose Urine UANEGATIVENEGATIVE mg/dLBilirubin UrineNEGATIVENEGATIVEKetones UrineNEGATIVE NEGATIVE mg/dLBlood UrineNEGATIVENEGATIVENitrite UrineNEGATIVENEGATIVE Urobilinogen Urine0.20.2-1.0 EU/dLLeukocyte Esterase UrineNEGATIVENEGATIVEWBC Urine0-2NONE SEEN #/HPFRBC Urine0-20-2 #/HPFBacteria UrineNONE SEENNONE SEEN #/HPFMucus UrineNONE SEENNONE SEENSquamous Epithelial Cell UrineNONE SEEN NONE/RARE #/LPFCrystals Seen?None SeenNone Seen #/HPFCast Seen?NONE SEENNONE SEEN #/LPFPerforming Lab:see noteML - [facility] LBProthrombin Time INR Reviewed date:10/01/2024 03:36:44 PM Interpretation: Performing Lab: Notes/Report: [facility] ,Prothrombin Time10.89.0-11.6 secINR1.02 DESIRED INR: 2.0-3.0 CONDITIONS NOT LISTED BELOW 2.5-3.5 FOR PROSTHETIC HEART VALVE REPLACEMENT 2.5-3.5 RECURRENT THROMBOSIS Performing Lab:see note - [facility] LBECG 12 lead Reviewed date:10/05/2024 08:20:23 PM Interpretation: Performing Lab: Notes/Report: Source Facility: [place] [address] Electrocardiograph Report Signed Patient: JOSE ALBERTO SALEEM MR#: [id number] : 1965 Acct:[id number] Age/Sex: 59 / F ADM Date: 09/30/24 Loc: [place] 215-[address]: Ashley Dejesus M.D. Ordering Physician: Cyrus Woodall M.D. Date of Service: 09/30/24 Procedure(s): ECG 12 lead Accession Number(s): [id number] cc: [facility] Test Date: 2024-09-30 Pat Name: JOSE ALBERTO SALEEM Department: Room: - Gender: Female Chief Digital Officer: : 1965 Requested By: ASHLEY DEJESUS Order Number: [id number] Reading MD: ALIREZA BULLOCK Measurements Intervals [place] Rate: 70 P: 63 DE: 164 QRS: -43 QRSD: 84 T: 30 QT: 388 QTc: 409 Interpretive Statements 1100 Sinus rhythm 3114 Cannot rule out anterior myocardial infarction, age undetermined 7200 Abnormal left axis deviation 8102 Low QRS voltage in chest leads 9150 abnormal ECG Electronically Signed On 10-02-2024 16:30:09 EST by ALIREZA BULLOCK Dictated By: Alireza Bullock D.O. Signed By: 10/02/24 1630 DD/ 1738 TD/TT: Balance Assembler:CT abdomen pelvis w con Reviewed date:10/01/2024 03:36:44 PM Interpretation: Performing Lab: Notes/Report: Source Facility: [address] [address] [address] Scan Report Signed Patient: JOSE ALBERTO SALEEM MR#: [id number] : 1965 Acct:[id number] Age/Sex: 59 / F ADM Date: 09/30/24 Loc: ER Attending Dr: Ordering Physician: Cyrus Woodall M.D. Date of Service: 09/30/24 Procedure(s): CT abdomen pelvis w con Accession Number(s): [id number] cc: Ashley Dejesus M.D. [place] [address] Patient Name: JOSE ALBERTO SALEEM MRN: [id number] date: 1965 Sex: F Assigned Patient Location: ER Current Patient Location: ED.MAIN Accession/Order Number: [id number] Exam Date: 09/30/2024 18:06 Report Date: 09/30/2024 [...] M.D. Signed By: 09/30/241852 DD/ 49 TD/TT: Balance Assembler:TRENTON Reviewed date:10/01/2024 03:36:44 PM Interpretation: Performing Lab: Notes/Report: [facility] ,Nwfwthm3720-99 umol/LPerforming Lab:see noteML - [facility] LBCBC AUTO DIFF Reviewed date:10/01/2024 03:36:44 PM Interpretation: Performing Lab: Notes/Report: [facility] ,White Blood Count4.84.0-11.0 10 3/uLRed Blood Count4.944.20-5.40 10 6/uL Hrdxrexdeb95.912.0-16.0 g/eHAxxvzebjdt46.636.0-48.0 %Mean Corpuscular Rfzvmy22.3 81.0-99.0 fLMean Corpuscular Qczxsgnvrk28.226.7-34.0 pgMean Corpuscular HGB Conc 32.729.9-35.2 g/dLRed Cell Distribution Width12.311.0-15.0 %Platelet Vazer001 150-450 10 3/uLMean Platelet Volume9.29.5-13.5 fLNeutrophils Percent Auto51.0 43.0-75.0 %Lymphocytes Percent Auto32.420.5-60.0 %Monocytes Percent Auto10.21.7- 12.0 %Eosinophils Percent Auto5.40.9-7.0 %Basophils Percent Auto0.60.2-2.0 % Immature Granulocytes Pct Auto0.40.0-0.5 %Neutrophils Absolute Auto2.51.4-6.5 10 3/uLLymphocytes Absolute Auto1.61.2-3.8 10 3/uLMonocytes Absolute Auto0.50.3-0.8 10 3/uLEosinophils Absolute Auto0.30.0-0.7 10 3/uLBasophils Absolute Auto0.00.0- 0.1 10 3/uLImmature Granulocytes Abs Auto0.020.00-0.03 10 3/uLPerforming Lab:see noteML - [facility] LBLIPASE Reviewed date:10/01/2024 03:36:44 PM Interpretation: Performing Lab: Notes/Report: [facility] ,Qxnynm90.016.0-77.0 U/LPerforming Lab:see noteML - [facility] LBPROF 14(COMP METB) Reviewed date:10/01/2024 03:36:44 PM Interpretation: Performing Lab: Notes/Report: [facility] ,Bvgixa017011-093 mmol/LPotassium4.23.5-5.1 mmol/VTlsbemxz67545-235 mmol/LCarbon Ebtuqqs55.721.0-32.0 mmol/LAnion Gap8.4Fprpqnq9403-010 mg/dLBlood Urea Nitrogen 16.07.0-18.0 mg/dLCreatinine0.800.55-1.02 mg/dLEstimated GFR ( [place]>60 >=60 mL/min/1.73m 2Estimated GFR (Non- [place]>60>=60 mL/min/1.73m 2BUN Creatinine Ratio20.8Ettwfxr9.58.5-10.1 mg/dLBilirubin Total0.50.2-1.0 mg/dL Aspartate Amino Udznsinwszk3601-65 U/LAlanine Mnbdoxvlkbwhzzmh9444-99 U/L Alkaline Okwzunvdnjj64040-030 U/LTotal Protein7.16.4-8.2 g/dLAlbumin Level3.7 3.4-5.0 g/dLGlobulin3.4Albumin Globulin Ratio1.1Performing Lab:see note - [facility] LBBlood Culture 1 Reviewed date:10/06/2024 08:37:09 PM Interpretation: Performing Lab: Notes/Report: [facility] ,Blood Culture 1See Below For Report Blood Culture 1 NG5D NO GROWTH AT 5 DAYS. Performing Lab:see note - [facility] LBBlood Culture 2 Reviewed date:10/06/2024 08:37:09 PM Interpretation: Performing Lab: Notes/Report: [facility] ,Blood Culture 2See Below For Report Blood Culture 2 NG5D NO GROWTH AT 5 DAYS. Performing Lab:see note - [facility] LBLIPASE Reviewed date:10/01/2024 03:36:44 PM Interpretation: Performing Lab: Notes/Report: [facility] ,Alxnds364.016.0-77.0 U/LPerforming Lab:see note - [facility] LBUS right upper quadrant Reviewed date:10/05/2024 08:20:23 PM Interpretation: Performing Lab: Notes/Report: Source Facility: [place] [address] [place] [address] Ultrasound Report Signed Patient: JOSE ALBERTO SALEEM MR#: [id number] : 1965 Acct:[id number] Age/Sex: 59 / F ADM Date: 09/30/24 Loc: [place] 215-[address]: Ashley Dejesus M.D. Ordering Physician: Ashley Dejesus M.D. Date of Service: 10/02/24 Procedure(s): US right upper quadrant Accession Number(s): [id number] cc: Ashley Dejesus M.D. [place] [address] Patient Name: JOSE ALBERTO SALEEM MRN: [id number] date: 1965 Sex: F Assigned Patient Location: MS Current Patient Location: [place] Accession/Order Number: [id number] Exam Date: 10/02/2024 07:40 Report Date: 10/02/2024 [...] Signed By: 10/02/24 0843 DD/ 0841 TD/TT: Balance Assembler:LIPASE Reviewed date:10/05/2024 08:20:23 PM Interpretation: Performing Lab: Notes/Report: [facility] ,Uokzjo20.016.0-77.0 U/LPerforming Lab:see noteML - [facility] LBPROF 14(COMP METB) Reviewed date:10/05/2024 08:20:23 PM Interpretation: Performing Lab: Notes/Report: [facility] ,Oqmclp801499-223 mmol/LPotassium3.63.5-5.1 mmol/HWcbntvzr14032-669 mmol/LCarbon Igtilaj67.221.0-32.0 mmol/LAnion Gap9.2Wqtjmyc5097-948 mg/dLBlood Urea Nitrogen 9.07.0-18.0 mg/dLCreatinine0.660.55-1.02 mg/dLEstimated GFR ( [place]>60 >=60 mL/min/1.73m 2Estimated GFR (Non- [place]>60>=60 mL/min/1.73m 2BUN Creatinine Ratio13.9Fulfkly4.18.5-10.1 mg/dLBilirubin Total0.40.2-1.0 mg/dL Aspartate Amino Vagcckqwuxr9234-89 U/LAlanine Ulbxctqzbznecrsx2555-67 U/L Alkaline Qfrculipspl4778-886 U/LTotal Protein6.46.4-8.2 g/dLAlbumin Level3.43.4- 5.0 g/dLGlobulin3.0Albumin Globulin Ratio1.1Performing Lab:see noteML - [facility] LBLIPASE Reviewed date:10/05/2024 08:20:23 PM Interpretation: Performing Lab: Notes/Report: [facility] ,Nxjhxa05.016.0-77.0 U/LPerforming Lab:see noteML - [facility] LBCBC AUTO DIFF Reviewed date:01/04/2025 03:44:31 PM Interpretation: Performing Lab: Notes/Report: [facility] ,White Blood Count5.04.0-11.0 10 3/uLRed Blood Count4.944.20-5.40 10 6/uL Fmislqsftj41.112.0-16.0 g/dLQyfmlrvpuu84.436.0-48.0 %Mean Corpuscular Boqfci29.9 81.0-99.0 fLMean Corpuscular Jlmwdmuvdg81.626.7-34.0 pgMean Corpuscular HGB Conc 33.329.9-35.2 g/dLRed Cell Distribution Width12.511.0-15.0 %Platelet Jqiyg082 150-450 10 3/uLMean Platelet Volume8.89.5-13.5 fLNeutrophils Percent Auto54.3 43.0-75.0 %Lymphocytes Percent Auto29.820.5-60.0 %Monocytes Percent Auto10.51.7- 12.0 %Eosinophils Percent Auto4.80.9-7.0 %Basophils Percent Auto0.40.2-2.0 % Immature Granulocytes Pct Auto0.20.0-0.5 %Neutrophils Absolute Auto2.71.4-6.5 10 3/uLLymphocytes Absolute Auto1.51.2-3.8 10 3/uLMonocytes Absolute Auto0.50.3-0.8 10 3/uLEosinophils Absolute Auto0.20.0-0.7 10 3/uLBasophils Absolute Auto0.00.0- 0.1 10 3/uLImmature Granulocytes Abs Auto0.010.00-0.03 10 3/uLPerforming Lab:see noteML - [facility] LBLACTATE or LACTIC ACID Reviewed date:01/04/2025 03:44:31 PM Interpretation: Performing Lab: Notes/Report: [facility] ,Lactate/Lactic Acid0.90.4-2.0 mmol/LPerforming Lab:see noteML - [facility] LBTroponin I High Sensitivity Reviewed date:01/04/2025 03:44:31 PM Interpretation: Performing Lab: Notes/Report: [facility] ,Troponin I High Sensitivity6.14.0-51.3 pg/mL CUT-OFF POINTS HAVE BEEN ESTABLISHED BASED [...] WITH OTHER DIAGNOSTIC AND CLINICAL INFORMATION. Performing Lab:see noteML - [facility] LBUA Micro, reflex to culture Reviewed date:01/04/2025 03:44:31 PM Interpretation: Performing Lab: Notes/Report: [facility] ,Color UrineLT. YELLOWYELLOWClarity UrineCLEARCLEARSpecific [place] Urine1.010 1.005-1.025pH Urine7.55.0-9.0Protein UrineNEGATIVENEG/TRACE mg/dLGlucose Urine UANEGATIVENEGATIVE mg/dLBilirubin UrineNEGATIVENEGATIVEKetones UrineNEGATIVE NEGATIVE mg/dLBlood UrineNEGATIVENEGATIVENitrite UrineNEGATIVENEGATIVE Urobilinogen Urine0.20.2-1.0 EU/dLLeukocyte Esterase UrineSMALLNEGATIVEWBC Urine 0-2NONE SEEN #/HPFRBC UrineNONE SEEN0-2 #/HPFBacteria UrineTRACENONE SEEN #/HPF Mucus UrineTRACENONE SEENSquamous Epithelial Cell UrineMODERATENONE/RARE #/LPF Crystals Seen?None SeenNone Seen #/HPFCast Seen?NONE SEENNONE SEEN #/LPF Performing Lab:see noteML - [facility] LBCBC AUTO DIFF Reviewed date:01/04/2025 03:44:31 PM Interpretation: Performing Lab: Notes/Report: [facility] ,White Blood Count6.54.0-11.0 10 3/uLRed Blood Count4.934.20-5.40 10 6/uL Etpbkizgff61.112.0-16.0 g/lHBqirzyoxqk30.536.0-48.0 %Mean Corpuscular Yitkwy64.3 81.0-99.0 fLMean Corpuscular Caaotykvru41.626.7-34.0 pgMean Corpuscular HGB Conc 33.929.9-35.2 g/dLRed Cell Distribution Width12.511.0-15.0 %Platelet Xybko552 150-450 10 3/uLMean Platelet Volume9.39.5-13.5 fLNeutrophils Percent Auto51.9 43.0-75.0 %Lymphocytes Percent Auto32.820.5-60.0 %Monocytes Percent Auto10.91.7- 12.0 %Eosinophils Percent Auto3.70.9-7.0 %Basophils Percent Auto0.50.2-2.0 % Immature Granulocytes Pct Auto0.20.0-0.5 %Neutrophils Absolute Auto3.41.4-6.5 10 3/uLLymphocytes Absolute Auto2.11.2-3.8 10 3/uLMonocytes Absolute Auto0.70.3-0.8 10 3/uLEosinophils Absolute Auto0.20.0-0.7 10 3/uLBasophils Absolute Auto0.00.0- 0.1 10 3/uLImmature Granulocytes Abs Auto0.010.00-0.03 10 3/uLPerforming Lab:see noteML - [facility] LBPROF 14(COMP METB) Reviewed date:01/04/2025 03:44:31 PM Interpretation: Performing Lab: Notes/Report: [facility] ,[id number] mmol/LPotassium4.33.5-5.1 mmol/OIhjuaykm60099-744 mmol/LCarbon Fjzvhdj01.321.0-32.0 mmol/LAnion Gap13.0Wqveuwl9056-140 mg/dLBlood Urea Nitrogen 28.07.0-18.0 mg/dLCreatinine0.660.55-1.02 mg/dLEstimated GFR ( [place]>60 >=60 mL/min/1.73m 2Estimated GFR (Non- [place]>60>=60 mL/min/1.73m 2BUN Creatinine Ratio42.8Jdmnplr7.58.5-10.1 mg/dLBilirubin Total0.20.2-1.0 mg/dL Aspartate Amino Cmygmhihoiy7193-70 U/LAlanine Wharxihgcmjcigii5411-27 U/L Alkaline Mkiutusqfdj85626-180 U/LTotal Protein7.06.4-8.2 g/dLAlbumin Level3.6 3.4-5.0 g/dLGlobulin3.4Albumin Globulin Ratio1.1Performing Lab:see note - [facility] LBLIPASE Reviewed date:01/04/2025 03:44:31 PM Interpretation: Performing Lab: Notes/Report: [facility] ,Fmxtkb044.016.0-77.0 U/LPerforming Lab:see noteML - [facility] LB AMMONIA Reviewed date:01/04/2025 03:44:31 PM Interpretation: Performing Lab: Notes/Report: [facility] ,Cunbjro3056-30 umol/LPerforming Lab:see note - [facility] LB AMYLASE Reviewed date:01/04/2025 03:44:31 PM Interpretation: Performing Lab: Notes/Report: [facility] ,Sxqqofj40150-835 U/LPerforming Lab:see note - [facility] LBCBC AUTO DIFF Reviewed date:01/04/2025 03:44:31 PM Interpretation: Performing Lab: Notes/Report: The [facility] ,White Blood Count5.04.0-11.0 10 3/uLRed Blood Count4.554.20-5.40 10 6/uL Rtddacppnz62.712.0-16.0 g/hRCrolvhqsjq36.036.0-48.0 %Mean Corpuscular Qzkwqr60.3 81.0-99.0 fLMean Corpuscular Hvjqtneknn10.126.7-34.0 pgMean Corpuscular HGB Conc 32.629.9-35.2 g/dLRed Cell Distribution Width12.511.0-15.0 %Platelet Qocey289 150-450 10 3/uLMean Platelet Volume9.29.5-13.5 fLNeutrophils Percent Auto55.7 43.0-75.0 %Lymphocytes Percent Auto28.220.5-60.0 %Monocytes Percent Auto11.11.7- 12.0 %Eosinophils Percent Auto4.60.9-7.0 %Basophils Percent Auto0.20.2-2.0 % Immature Granulocytes Pct Auto0.20.0-0.5 %Neutrophils Absolute Auto2.81.4-6.5 10 3/uLLymphocytes Absolute Auto1.41.2-3.8 10 3/uLMonocytes Absolute Auto0.60.3-0.8 10 3/uLEosinophils Absolute Auto0.20.0-0.7 10 3/uLBasophils Absolute Auto0.00.0- 0.1 10 3/uLImmature Granulocytes Abs Auto0.010.00-0.03 10 3/uLPerforming Lab:see noteML - [facility] LBLIPASE Reviewed date:01/04/2025 03:44:31 PM Interpretation: Performing Lab: Notes/Report: [facility] ,Amnxzq32.016.0-77.0 U/LPerforming Lab:see noteML - [facility] LB LIPID PROFILE Reviewed date:01/04/2025 03:44:31 PM Interpretation: Performing Lab: Notes/Report: [facility] ,Kodcntfuzpnok073<=150 mg/bWTtcniyfcsbg266<=200 mg/dLHDL Ggfspmuvxjl2467-00 mg/dL > or =60 mg/dl - LOW CARDIOVASCULAR RISK <40 mg/dl - HIGH CARDIOVASCULAR RISK LDL Cholesterol Rtgbvriyku855.2 <100 mg/dl OPTIMAL 100-129 mg/dl NEAR OR ABOVE OPTIMAL 130-159 mg/dl BORDERLINE HIGH 160-189 mg/dl HIGH >190 mg/dl VERY HIGH VLDL SVOYPNIBGLF89.8Chol HDL Ratio3.5 3.3 - 4.4 LOW RISK 4.4 - 7.1 AVERAGE RISK 7.1 - 11.0 MODERATE RISK >11.0 HIGH RISK Performing Lab:see noteML - [facility] LBPROF 14(COMP METB) Reviewed date:01/04/2025 03:44:31 PM Interpretation: Performing Lab: Notes/Report: [facility] ,Mbnbij432239-898 mmol/LPotassium4.23.5-5.1 mmol/YYfgezext36307-029 mmol/LCarbon Gouhvty91.421.0-32.0 mmol/LAnion Gap10.1Pzfwbzo9655-170 mg/dLBlood Urea Nitrogen 15.07.0-18.0 mg/dLCreatinine0.720.55-1.02 mg/dLEstimated GFR ( [place]>60 >=60 mL/min/1.73m 2Estimated GFR (Non- [place]>60>=60 mL/min/1.73m 2BUN Creatinine Ratio20.3Jwpucyv3.98.5-10.1 mg/dLBilirubin Total0.40.2-1.0 mg/dL Aspartate Amino Ujhcigyiafi6615-94 U/LAlanine Ydtyzjqkksouwkcs1505-18 U/L Alkaline Ihhkwirfoor6659-167 U/LTotal Protein6.06.4-8.2 g/dLAlbumin Level3.13.4- 5.0 g/dLGlobulin2.9Albumin Globulin Ratio1.1Performing Lab:see note - [facility] LBPTT Reviewed date:01/04/2025 03:44:31 PM Interpretation: Performing Lab: Notes/Report: [facility] ,Partial Thromboplastin Time31.422.3-36.2 secPerforming Lab:see note - [facility] LBProthrombin Time INR Reviewed date:01/04/2025 03:44:31 PM Interpretation: Performing Lab: Notes/Report: [facility] ,Prothrombin Time10.99.0-11.6 secINR1.03 DESIRED INR: 2.0-3.0 CONDITIONS NOT LISTED BELOW 2.5-3.5 FOR PROSTHETIC HEART VALVE REPLACEMENT 2.5-3.5 RECURRENT THROMBOSIS Performing Lab:see note - [facility] LBAMYLASE Reviewed date:05/06/2025 12:42:14 PM Interpretation: Performing Lab: Notes/Report: [facility] ,Btgyobs01812-727 U/LPerforming Lab:see noteML - [facility] LBCBC AUTO DIFF Reviewed date:05/06/2025 12:42:14 PM Interpretation: Performing Lab: Notes/Report: [facility] ,White Blood Count5.64.0-11.0 10 3/uLRed Blood Count5.114.20-5.40 10 6/uL Mnrvplecem70.112.0-16.0 g/tONyuhtcbljv33.936.0-48.0 %Mean Corpuscular Tprrbu10.8 81.0-99.0 fLMean Corpuscular Puyhnmzfoo57.526.7-34.0 pgMean Corpuscular HGB Conc 32.929.9-35.2 g/dLRed Cell Distribution Width12.711.0-15.0 %Platelet Xtrqw838 150-450 10 3/uLMean Platelet Volume9.39.5-13.5 fLNeutrophils Percent Auto53.7 43.0-75.0 %Lymphocytes Percent Auto29.920.5-60.0 %Monocytes Percent Auto10.91.7- 12.0 %Eosinophils Percent Auto4.80.9-7.0 %Basophils Percent Auto0.50.2-2.0 % Immature Granulocytes Pct Auto0.20.0-0.5 %Neutrophils Absolute Auto3.01.4-6.5 10 3/uLLymphocytes Absolute Auto1.71.2-3.8 10 3/uLMonocytes Absolute Auto0.60.3-0.8 10 3/uLEosinophils Absolute Auto0.30.0-0.7 10 3/uLBasophils Absolute Auto0.00.0- 0.1 10 3/uLImmature Granulocytes Abs Auto0.010.00-0.03 10 3/uLPerforming Lab:see noteML - [facility] LBFERRITIN Reviewed date:05/06/2025 12:42:14 PM Interpretation: Performing Lab: Notes/Report: [facility] ,Svaoszky18.08.0-252.0 ng/mLPerforming Lab:see noteML - [facility] LB FOLATE Reviewed date:05/06/2025 12:42:14 PM Interpretation: Performing Lab: Notes/Report: [facility] ,Roouht55.708.60-58.90 ng/mLPerforming Lab:see noteML - [facility] LB IRON AND TIBC Reviewed date:05/06/2025 12:42:14 PM Interpretation: Performing Lab: Notes/Report: [facility] ,Iron92.050.0-170.0 ug/dLTotal Iron Binding Fhtipidy228.0250.0-450.0 ug/dL Percent Iron Lxflgnvjrv41.9Performing Lab:see noteML - [facility] LB LIPASE Reviewed date:05/06/2025 12:42:14 PM Interpretation: Performing Lab: Notes/Report: [facility] ,Viyjgm86.016.0-77.0 U/LPerforming Lab:see noteML - [facility] LB MAGNESIUM Reviewed date:05/06/2025 12:42:14 PM Interpretation: Performing Lab: Notes/Report: [facility] ,Magnesium2.21.8-2.4 mg/dLPerforming Lab:see noteML - [facility] LB PHOSPHORUS Reviewed date:05/06/2025 12:42:14 PM Interpretation: Performing Lab: Notes/Report: [facility] ,Phosphorus3.72.6-4.7 mg/dLPerforming Lab:see noteML - [facility] LB PROF 14(COMP METB) Reviewed date:05/06/2025 12:42:14 PM Interpretation: Performing Lab: Notes/Report: [facility] ,Xsdslg700947-634 mmol/LPotassium4.13.5-5.1 mmol/INcznznwz30178-194 mmol/LCarbon Qiqtwgv31.421.0-32.0 mmol/LAnion Gap7.5Cdtykoz1669-767 mg/dLBlood Urea Nitrogen 30.07.0-18.0 mg/dLCreatinine0.610.55-1.02 mg/dLEstimated GFR ( [place]>60 >=60 mL/min/1.73m 2Estimated GFR (Non- [place]>60>=60 mL/min/1.73m 2BUN Creatinine Ratio49.5Ixskwbv6.88.5-10.1 mg/dLBilirubin Total0.30.2-1.0 mg/dL Aspartate Amino Ehpwmnvwser3792-26 U/LAlanine Qjiciqahrbpduyvb8234-66 U/L Alkaline Tbhvhfsbhwr25726-670 U/LTotal Protein7.36.4-8.2 g/dLAlbumin Level3.7 3.4-5.0 g/dLGlobulin3.6Albumin Globulin Ratio1.0Performing Lab:see amanda - [facility] LBVITAMIN D 25 [place] Reviewed date:05/06/2025 12:42:14 PM Interpretation: Performing Lab: Notes/Report: [facility] ,Vitamin D60.9 <20 ng/mL Vit D deficient 20-<30 ng/mL Vit D insufficient 30-100 ng/mL Vit D sufficient >100 ng/mL Potential Toxicity Performing [facility] LBVitamin B1 (Thiamine), Blood Reviewed date:05/12/2025 08:16:07 PM Interpretation: Performing Lab: Notes/Report: [facility] ,Vitamin B1 (Thiamine), Ctnfw620.966.5-200.0 nmol/L This test was developed and its performance characteristics determined by [facility]. It has not been cleared or approved by the Food and Drug Administration. Performed at: [address] [id number] [place]: Toni Guidry MD, Phone: [phone] Performing Lab:see [facility]Leg[facility] LBAMYLASE Reviewed date:07/04/2025 12:56:51 PM Interpretation: Performing Lab: Notes/Report: [facility] ,Dgzxslz57280-444 U/LPerforming Lab:see [facility] LBCBC AUTO DIFF Reviewed date:07/04/2025 12:56:51 PM Interpretation: Performing Lab: Notes/Report: [facility] ,White Blood Count4.74.0-11.0 10 3/uLRed Blood Count4.934.20-5.40 10 6/uL Clqjqndsva15.712.0-16.0 g/xQBncaebxghp15.736.0-48.0 %Mean Corpuscular Nadkmm74.7 81.0-99.0 fLMean Corpuscular Sokjxbmsot70.826.7-34.0 pgMean Corpuscular HGB Conc 32.929.9-35.2 g/dLRed Cell Distribution Width13.211.0-15.0 %Platelet Ipivg853 150-450 10 3/uLMean Platelet Volume9.39.5-13.5 fLNeutrophils Percent Auto60.3 43.0-75.0 %Lymphocytes Percent Auto24.620.5-60.0 %Monocytes Percent Auto9.41.7- 12.0 %Eosinophils Percent Auto5.10.9-7.0 %Basophils Percent Auto0.40.2-2.0 % Immature Granulocytes Pct Auto0.20.0-0.5 %Neutrophils Absolute Auto2.81.4-6.5 10 3/uLLymphocytes Absolute Auto1.21.2-3.8 10 3/uLMonocytes Absolute Auto0.40.3-0.8 10 3/uLEosinophils Absolute Auto0.20.0-0.7 10 3/uLBasophils Absolute Auto0.00.0- 0.1 10 3/uLImmature Granulocytes Abs Auto0.010.00-0.03 10 3/uLPerforming Lab:see noteML - [facility] LBFERRITIN Reviewed date:07/08/2025 06:00:19 PM Interpretation: Performing Lab: Notes/Report: [facility] ,Mhclwjbf63.08.0-252.0 ng/mLPerforming Lab:see note - [facility] LB IRON AND TIBC Reviewed date:07/04/2025 12:56:51 PM Interpretation: Performing Lab: Notes/Report: [facility] ,Iron85.050.0-170.0 ug/dLTotal Iron Binding Twzfuyfm006.0250.0-450.0 ug/dL Percent Iron Zjwysaihzn49.4Performing Lab:see noteML - [facility] LB LIPASE Reviewed date:07/04/2025 12:56:51 PM Interpretation: Performing Lab: Notes/Report: [facility] ,Pnbkvn585.016.0-77.0 U/LPerforming Lab:see note - [facility] LB PROF 14(COMP METB) Reviewed date:07/04/2025 12:56:51 PM Interpretation: Performing Lab: Notes/Report: [facility] ,Uvcevv963203-330 mmol/LPotassium3.93.5-5.1 mmol/ERxbhgieb89514-097 mmol/LCarbon Hmandhq51.821.0-32.0 mmol/LAnion Gap9.6Njiasiw18580-502 mg/dLBlood Urea Nitrogen 17.07.0-18.0 mg/dLCreatinine0.670.55-1.02 mg/dLEstimated GFR ( [place]>60 >=60 mL/min/1.73m 2Estimated GFR (Non- [place]>60>=60 mL/min/1.73m 2BUN Creatinine Ratio25.7Hueyrsc9.58.5-10.1 mg/dLBilirubin Total0.40.2-1.0 mg/dL Aspartate Amino Cbdvehmxqlw3673-67 U/LAlanine Nwtnljnvkeqkegof0053-94 U/L Alkaline Rtkustawbvf54921-688 U/LTotal Protein7.16.4-8.2 g/dLAlbumin Level3.5 3.4-5.0 g/dLGlobulin3.6Albumin Globulin Ratio1.0Performing Lab:see note - [facility] LBTSH Reviewed date:07/04/2025 12:56:51 PM Interpretation: Performing Lab: Notes/Report: [facility] ,Thyroid Stimulating Hormone2.3470.358-3.740 uIU/mLPerforming Lab:see [facility] LBVITAMIN D 25 [place] Reviewed date:07/08/2025 06:00:19 PM Interpretation: Performing Lab: Notes/Report: [facility] ,Vitamin D64.9 <20 ng/mL Vit D deficient 20-<30 ng/mL Vit D insufficient 30-100 ng/mL Vit D sufficient >100 ng/mL Potential Toxicity Performing Lab:see note - [facility] LBVitamin B12 Reviewed date:07/05/2025 02:23:19 PM Interpretation: Performing Lab: Notes/Report: [facility] ,Vitamin B12>2949716-4521 pg/mL Performed at: [address] [id number] [place]: Afshin Martinez PhD, Phone: [phone] Performing Lab:see note - [facility] LBFolate (Folic Acid), Serum Reviewed date:07/06/2025 12:50:56 PM Interpretation: Performing Lab: Notes/Report: [facility] ,Folate (Folic Acid), Serum>20.0>3.0 ng/mL A serum folate concentration of less than 3.1 ng/mL is considered to represent clinical deficiency. Performed at: - [facility] [address] [id number] [place]: Afshin Martinez PhD, Phone: [phone] Performing Lab:see noteLC - [facility] LBAMYLASE Reviewed date:07/07/2025 04:43:54 PM Interpretation: Performing Lab: Notes/Report: [facility] ,Xygovup13468-039 U/LPerforming Lab:see noteML - [facility] LBCBC AUTO DIFF Reviewed date:07/07/2025 04:43:54 PM Interpretation: Performing Lab: Notes/Report: [facility] ,White Blood Count6.34.0-11.0 10 3/uLRed Blood Count4.984.20-5.40 10 6/uL Wsrmiuasls27.912.0-16.0 g/kUCjywnwecny90.636.0-48.0 %Mean Corpuscular Ehzawr34.6 81.0-99.0 fLMean Corpuscular Fjaijolsow68.926.7-34.0 pgMean Corpuscular HGB Conc 33.429.9-35.2 g/dLRed Cell Distribution Width13.211.0-15.0 %Platelet Nlrtx435 150-450 10 3/uLMean Platelet Volume9.29.5-13.5 fLNeutrophils Percent Auto49.1 43.0-75.0 %Lymphocytes Percent Auto34.120.5-60.0 %Monocytes Percent Auto11.51.7- 12.0 %Eosinophils Percent Auto4.60.9-7.0 %Basophils Percent Auto0.50.2-2.0 % Immature Granulocytes Pct Auto0.20.0-0.5 %Neutrophils Absolute Auto3.11.4-6.5 10 3/uLLymphocytes Absolute Auto2.21.2-3.8 10 3/uLMonocytes Absolute Auto0.70.3-0.8 10 3/uLEosinophils Absolute Auto0.30.0-0.7 10 3/uLBasophils Absolute Auto0.00.0- 0.1 10 3/uLImmature Granulocytes Abs Auto0.010.00-0.03 10 3/uLPerforming Lab:see noteML - [facility] LBLIPASE Reviewed date:07/07/2025 04:43:54 PM Interpretation: Performing Lab: Notes/Report: [facility] ,Ghligh332.016.0-77.0 U/LPerforming Lab:see noteML - [facility] LB PROF 14(COMP METB) Reviewed date:07/07/2025 04:43:54 PM Interpretation: Performing Lab: Notes/Report: [facility] ,Rioyzh696697-933 mmol/LPotassium4.03.5-5.1 mmol/VUdwbbvmy59031-494 mmol/LCarbon Zopozfe75.421.0-32.0 mmol/LAnion Gap9.4Odgclgh9712-703 mg/dLBlood Urea Nitrogen 25.07.0-18.0 mg/dLCreatinine0.590.55-1.02 mg/dLEstimated GFR ( [place]>60 >=60 mL/min/1.73m 2Estimated GFR (Non- [place]>60>=60 mL/min/1.73m 2BUN Creatinine Ratio42.8Fxdiwlc0.98.5-10.1 mg/dLBilirubin Total0.40.2-1.0 mg/dL Aspartate Amino Lhqiwkhtzqe2295-45 U/LAlanine Xabtdmhbptagpujg5373-12 U/L Alkaline Ascuxohazbo15083-990 U/LTotal Protein7.46.4-8.2 g/dLAlbumin Level3.8 3.4-5.0 g/dLGlobulin3.6Albumin Globulin Ratio1.1Performing Lab:see noteML - [facility] LBCT abdomen pelvis w con Reviewed date:07/07/2025 04:43:54 PM Interpretation: Performing Lab: Notes/Report: Source Facility: [facility]-[address] [place] [address] [place] [address] [place] Scan Report Signed Patient: JOSE ALBERTO SALEEM MR#: [id number] : 1965 Acct:[id number] Age/Sex: 60 / F ADM Date: 07/06/25 Loc: ER Attending Dr: Ordering Physician: Alex Blount Date of Service: 07/06/25 Procedure(s): CT abdomen pelvis w con Accession Number(s): [id number] cc: Ashley Dejesus M.D. [place] [address] Patient Name: JOSE ALBERTO SALEEM MRN: [id number] date: 1965 Sex: F Assigned Patient Location: ER Current Patient Location: ER Accession/Order Number: [id number] Exam Date: 07/06/2025 19:48 Report Date: 07/06/2025 20:28 At the request of: ALEX LBOUNT MD Procedure: CT abdomen pelvis w con [...] Alejandra M.D. 07/06/2025 8:28 PM Dictation [facility] Electronically authenticated by: [id number] Y Date: 07/06/2025 20:28 Dictated By: Dylon Alejandra M.D. Signed By: 07/06/252030 DD/ 27 TD/TT: Balance Assembler:CBC AUTO DIFF Reviewed date:07/07/2025 04:43:54 PM Interpretation: Performing Lab: Notes/Report: [facility] ,White Blood Count5.54.0-11.0 10 3/uLRed Blood Count4.554.20-5.40 10 6/uL Ffajatnhvc64.412.0-16.0 g/tTAdkwjhnenh68.536.0-48.0 %Mean Corpuscular Zhqhts57.2 81.0-99.0 fLMean Corpuscular Wiznpylsku95.526.7-34.0 pgMean Corpuscular HGB Conc 32.329.9-35.2 g/dLRed Cell Distribution Width13.311.0-15.0 %Platelet Wuofx930 150-450 10 3/uLMean Platelet Volume8.59.5-13.5 fLNeutrophils Percent Auto46.0 43.0-75.0 %Lymphocytes Percent Auto38.220.5-60.0 %Monocytes Percent Auto10.31.7- 12.0 %Eosinophils Percent Auto5.10.9-7.0 %Basophils Percent Auto0.20.2-2.0 % Immature Granulocytes Pct Auto0.20.0-0.5 %Neutrophils Absolute Auto2.51.4-6.5 10 3/uLLymphocytes Absolute Auto2.11.2-3.8 10 3/uLMonocytes Absolute Auto0.60.3- 0.8 10 3/uLEosinophils Absolute Auto0.30.0-0.7 10 3/uLBasophils Absolute Auto0.0 0.0-0.1 10 3/uLImmature Granulocytes Abs Auto0.010.00-0.03 10 3/uLPerforming Lab:see noteML - [facility] LBLIPASE Reviewed date:07/07/2025 04:43:54 PM Interpretation: Performing Lab: Notes/Report: [facility] ,Xfbrft515.016.0-77.0 U/LPerforming Lab:see noteML - [facility] LB LIPID PROFILE Reviewed date:07/07/2025 04:43:54 PM Interpretation: Performing Lab: Notes/Report: [facility] ,Zgamyjogjldxv320<=150 mg/wQZbrrdagllhj134<=200 mg/dLHDL Gizzdjvmzva8240-39 mg/dL > or =60 mg/dl - LOW CARDIOVASCULAR RISK <40 mg/dl - HIGH CARDIOVASCULAR RISK LDL Cholesterol Vikjagffzg762.0 <100 mg/dl OPTIMAL 100-129 mg/dl NEAR OR ABOVE OPTIMAL 130-159 mg/dl BORDERLINE HIGH 160-189 mg/dl HIGH >190 mg/dl VERY HIGH VLDL FATVYPWCOZW06.4Chol HDL Ratio5.0 3.3 - 4.4 LOW RISK 4.4 - 7.1 AVERAGE RISK 7.1 - 11.0 MODERATE RISK >11.0 HIGH RISK Performing Lab:see noteML - [facility] LBMAGNESIUM Reviewed date:07/07/2025 04:43:54 PM Interpretation: Performing Lab: Notes/Report: [facility] ,Magnesium2.31.8-2.4 mg/dLPerforming Lab:see noteML - [facility] LB PHOSPHORUS Reviewed date:07/07/2025 04:43:54 PM Interpretation: Performing Lab: Notes/Report: [facility] ,Phosphorus4.82.6-4.7 mg/dLPerforming Lab:see noteML - [facility] LB PROF 14(COMP METB) Reviewed date:07/07/2025 04:43:54 PM Interpretation: Performing Lab: Notes/Report: [facility] ,Jirvlu094438-060 mmol/LPotassium4.33.5-5.1 mmol/ZPuclinuj85592-928 mmol/LCarbon Hbhahpl46.821.0-32.0 mmol/LAnion Gap6.3Czkopck6197-828 mg/dLBlood Urea Nitrogen 20.07.0-18.0 mg/dLCreatinine0.730.55-1.02 mg/dLEstimated GFR ( [place]>60 >=60 mL/min/1.73m 2Estimated GFR (Non- [place]>60>=60 mL/min/1.73m 2BUN Creatinine Ratio27.7Xzykcvx1.68.5-10.1 mg/dLBilirubin Total0.30.2-1.0 mg/dL Aspartate Amino Wrxefpbmubp1863-72 U/LAlanine Yikrwxwmxhdyglmg1989-36 U/L Alkaline Yeoprxdorub5720-342 U/LTotal Protein6.06.4-8.2 g/dLAlbumin Level3.13.4- 5.0 g/dLGlobulin2.9Albumin Globulin Ratio1.1Performing Lab:see noteML - [facility] LBUA Micro, reflex to culture Reviewed date:07/07/2025 06:53:30 PM Interpretation: Performing Lab: Notes/Report: [facility] ,Color UrineLT YELLOWYELLOWClarity UrineCLEARCLEARSpecific [place] Urine<=1.005 1.005-1.025pH Urine5.55.0-9.0Protein UrineNEGATIVENEG/TRACE mg/dLGlucose Urine UANEGATIVENEGATIVE mg/dLBilirubin UrineNEGATIVENEGATIVEKetones UrineNEGATIVE NEGATIVE mg/dLBlood UrineNEGATIVENEGATIVENitrite UrineNEGATIVENEGATIVE Urobilinogen Urine0.20.2-1.0 EU/dLLeukocyte Esterase UrineNEGATIVENEGATIVEWBC Urine2-5NONE SEEN #/HPFRBC UrineNONE SEEN0-2 #/HPFBacteria UrineTRACENONE SEEN #/HPFMucus UrineNONE SEENNONE SEENSquamous Epithelial Cell UrineRARENONE/RARE #/LPFCrystals Seen?None SeenNone Seen #/HPFAmorphous Sediment UrineRARECast Seen?NONE SEENNONE SEEN #/LPFUrine Culture IndicatedNOPerforming Lab:see noteML - [facility] LBECG 12 lead Reviewed date:07/07/2025 04:43:54 PM Interpretation: Performing Lab: Notes/Report: Source Facility: [place] [address] [place] [address] Electrocardiograph Report Signed Patient: JOSE ALBERTO SALEEM MR#: [id number] : 1965 Acct:[id number] Age/Sex: 60 / F ADM Date: 07/06/25 Loc: [place] 204-[address]: David Wang M.D. Ordering Physician: David Wang M.D. Date of Service: 07/07/25 Procedure(s): ECG 12 lead Accession Number(s): [id number] cc: [facility] Test Date: 2025-07-07 Pat Name: JOSE ALBERTO SALEEM Department: Room: [facility] Gender: Female Chief Digital Officer: : 1965 Requested By: [id number] Order Number: [id number] Reading MD: DIEGO ALFARO Measurements Intervals [place] Rate: 58 P: 77 DE: 156 QRS: -50 QRSD: 100 T: -15 [...] 07/07/25 1258 07/07/25 1258 DD/ 0538 TD/TT: Balance Assembler:JAQUELINE Reviewed date:07/08/2025 12:28:15 PM Interpretation: Performing Lab: Notes/Report: [facility] ,Oqixzg22.016.0-77.0 U/LPerforming Lab:see noteML - [facility] LB Erythrocyte Sedimentation Rate Reviewed date:07/14/2025 02:10:19 PM Interpretation: Performing Lab: Notes/Report: [facility] ,Erythrocyte Sedimentation Rate16<=30 mm/hrPerforming Lab:see note - [facility] LBCBC AUTO DIFF Reviewed date:07/22/2025 05:55:27 PM Interpretation: Performing Lab: Notes/Report: [facility] ,White Blood Count5.34.0-11.0 10 3/uLRed Blood Count5.254.20-5.40 10 6/uL Wzqyjrokpj30.512.0-16.0 g/iNYedtzugqyu76.936.0-48.0 %Mean Corpuscular Brejvi96.2 81.0-99.0 fLMean Corpuscular Ffzoyiqbmg64.526.7-34.0 pgMean Corpuscular HGB Conc 32.429.9-35.2 g/dLRed Cell Distribution Width13.311.0-15.0 %Platelet Wdgka898 150-450 10 3/uLMean Platelet Volume9.19.5-13.5 fLNeutrophils Percent Auto58.9 43.0-75.0 %Lymphocytes Percent Auto26.720.5-60.0 %Monocytes Percent Auto8.71.7- 12.0 %Eosinophils Percent Auto5.30.9-7.0 %Basophils Percent Auto0.40.2-2.0 % Immature Granulocytes Pct Auto0.00.0-0.5 %Neutrophils Absolute Auto3.11.4-6.5 10 3/uLLymphocytes Absolute Auto1.41.2-3.8 10 3/uLMonocytes Absolute Auto0.50.3-0.8 10 3/uLEosinophils Absolute Auto0.30.0-0.7 10 3/uLBasophils Absolute Auto0.00.0- 0.1 10 3/uLImmature Granulocytes Abs Auto0.000.00-0.03 10 3/uLPerforming Lab:see noteML - [facility] LBFREE T3 Reviewed date:07/22/2025 05:55:27 PM Interpretation: Performing Lab: Notes/Report: [facility] ,Free T33.262.18-3.98 pg/mLPerforming Lab:see noteML - [facility] LB GLYCOHEMOGLOBIN A1C Reviewed date:07/22/2025 05:55:27 PM Interpretation: Performing Lab: Notes/Report: [facility] ,Glycohemoglobin A1C5.54.5-6.2 % ADA RECOMMENDED LIMIT 4.0 - 6.0 ADA THERAPEUTIC TARGET < 7.0 ACTION SUGGESTED > 7.0 Estimated Average Ullzvag109Xfmbnpkjhm Lab:see noteML - [facility] LB INSULIN Reviewed date:07/23/2025 12:22:55 PM Interpretation: Performing Lab: Notes/Report: [facility] ,Kewpcsl32.82.6-24.9 uIU/mL Performed at: - [facility] [address] [id number] [place]: Afshin Martinez PhD, Phone: [phone] Performing Lab:see noteLC - [facility] LBIRON Reviewed date:07/22/2025 05:55:27 PM Interpretation: Performing Lab: Notes/Report: [facility] ,Gdlk749.050.0-170.0 ug/dLPerforming Lab:see noteML - [facility] LB LIPID PROFILE Reviewed date:07/22/2025 05:55:27 PM Interpretation: Performing Lab: Notes/Report: [facility] ,Mcssfbukkpyqf411<=150 mg/xFYozlbwvovtk915<=200 mg/dLHDL Soxxfjigmpm1485-16 mg/dL > or =60 mg/dl - LOW CARDIOVASCULAR RISK <40 mg/dl - HIGH CARDIOVASCULAR RISK LDL Cholesterol Pxlirvdqez557.0 <100 mg/dl OPTIMAL 100-129 mg/dl NEAR OR ABOVE OPTIMAL 130-159 mg/dl BORDERLINE HIGH 160-189 mg/dl HIGH >190 mg/dl VERY HIGH VLDL EFXTPHWKNEL71.2Chol HDL Ratio4.5 3.3 - 4.4 LOW RISK 4.4 - 7.1 AVERAGE RISK 7.1 - 11.0 MODERATE RISK >11.0 HIGH RISK Performing Lab:see noteML - [facility] LBPROF 14(COMP METB) Reviewed date:07/22/2025 05:55:27 PM Interpretation: Performing Lab: Notes/Report: [facility] ,Lbyqis649429-294 mmol/LPotassium4.13.5-5.1 mmol/XYktjjhkf74506-559 mmol/LCarbon Onmzpvt16.721.0-32.0 mmol/LAnion Gap12.3Mfrxibk17757-908 mg/dLBlood Urea Qcxhpqsm99.07.0-18.0 mg/dLCreatinine0.750.55-1.02 mg/dLEstimated GFR ( [place]>60>=60 mL/min/1.73m 2Estimated GFR (Non- [place]>60>=60 mL/min/1.73m 2BUN Creatinine Ratio24.9Heuuqcx2.98.5-10.1 mg/dLBilirubin Total0.40.2-1.0 mg/dL Aspartate Amino Wlymyhkhsir8586-72 U/LAlanine Xogtyqpnaudyvzej4799-11 U/L Alkaline Jgilftivebc04285-726 U/LTotal Protein7.56.4-8.2 g/dLAlbumin Level3.9 3.4-5.0 g/dLGlobulin3.6Albumin Globulin Ratio1.1Performing Lab:see note - [facility] LBVitamin B12 Reviewed date:05/07/2025 10:15:53 PM Interpretation: Performing Lab: Notes/Report: [facility] ,Vitamin [id number] pg/mL Performed at: [facility] [address] [id number] [place]: Afshin Martinez PhD, Phone: [phone] Performing Lab:[facility] LBPROF 14(COMP METB) Reviewed date:01/04/2025 03:44:31 PM Interpretation: Performing Lab: Notes/Report: [facility] ,Bwjhwu753638-130 mmol/LPotassium4.33.5-5.1 mmol/ZDvmrssxt71247-960 mmol/LCarbon Seijqpb52.021.0-32.0 mmol/LAnion Gap9.9Uhipbof8431-503 mg/dLBlood Urea Nitrogen 21.07.0-18.0 mg/dLCreatinine0.760.55-1.02 mg/dLEstimated GFR ( [place]>60 >=60 mL/min/1.73m 2Estimated GFR (Non- [place]>60>=60 mL/min/1.73m 2BUN Creatinine Ratio27.4Xetiqmn0.78.5-10.1 mg/dLBilirubin Total0.30.2-1.0 mg/dL Aspartate Amino Yntzcibrylv5709-27 U/LAlanine Azhngjykefnpbtdk1964-88 U/L Alkaline Utpkhesifvb21067-264 U/LTotal Protein6.96.4-8.2 g/dLAlbumin Level3.7 3.4-5.0 g/dLGlobulin3.2Albumin Globulin Ratio1.2Performing Lab:see noteML - [facility] LBLIPASE Reviewed date:01/04/2025 03:44:31 PM Interpretation: Performing Lab: Notes/Report: [facility] ,Sasaak356.016.0-77.0 U/LPerforming Lab:see noteML - [facility] LB AMYLASE Reviewed date:01/04/2025 03:44:31 PM Interpretation: Performing Lab: Notes/Report: [facility] ,Acaoimx77079-324 U/LRESULTS CALLED TO COLE SYKES LPN at 0929Performing Lab:see noteML - [facility] LBPROF 14(COMP METB) Reviewed date:10/05/2024 08:20:23 PM Interpretation: Performing Lab: Notes/Report: [facility] ,Nofiyb874309-107 mmol/LPotassium3.63.5-5.1 mmol/VUtbgqggm85984-067 mmol/LCarbon Hhhucnd98.721.0-32.0 mmol/LAnion Gap9.1Rpmxdvu5094-696 mg/dLBlood Urea Nitrogen 11.07.0-18.0 mg/dLCreatinine0.620.55-1.02 mg/dLEstimated GFR ( [place]>60 >=60 mL/min/1.73m 2Estimated GFR (Non- Florencia>60>=60 mL/min/1.73m 2BUN Creatinine Ratio17.7Eacdpwu9.98.5-10.1 mg/dLBilirubin Total0.30.2-1.0 mg/dL Aspartate Amino Npgeovylouy0205-20 U/LAlanine Jcieocsuislbuilh0278-11 U/L Alkaline Pkbpnyhdzsf5326-197 U/LTotal Protein6.16.4-8.2 g/dLAlbumin Level3.23.4- 5.0 g/dLGlobulin2.9Albumin Globulin Ratio1.1Performing Lab:see noteML - [facility] LBLIPASE Reviewed date:10/05/2024 08:20:23 PM Interpretation: Performing Lab: Notes/Report: [facility] ,Bxcozg706.016.0-77.0 U/LPerforming Lab:see noteML - [facility] LBCBC AUTO DIFF Reviewed date:10/05/2024 08:20:23 PM Interpretation: Performing Lab: Notes/Report: [facility] ,White Blood Count5.44.0-11.0 10 3/uLRed Blood Count4.624.20-5.40 10 6/uL Jwiysmupqn30.012.0-16.0 g/fADjyfjjnroa85.336.0-48.0 %Mean Corpuscular Wnrdcr52.6 81.0-99.0 fLMean Corpuscular Ryfdjspblv38.326.7-34.0 pgMean Corpuscular HGB Conc 33.129.9-35.2 g/dLRed Cell Distribution Width12.111.0-15.0 %Platelet Uaamp039 150-450 10 3/uLMean Platelet Volume9.29.5-13.5 fLNeutrophils Percent Auto53.4 43.0-75.0 %Lymphocytes Percent Auto32.320.5-60.0 %Monocytes Percent Auto10.21.7- 12.0 %Eosinophils Percent Auto3.70.9-7.0 %Basophils Percent Auto0.20.2-2.0 % Immature Granulocytes Pct Auto0.20.0-0.5 %Neutrophils Absolute Auto2.91.4-6.5 10 3/uLLymphocytes Absolute Auto1.81.2-3.8 10 3/uLMonocytes Absolute Auto0.60.3-0.8 10 3/uLEosinophils Absolute Auto0.20.0-0.7 10 3/uLBasophils Absolute Auto0.00.0- 0.1 10 3/uLImmature Granulocytes Abs Auto0.010.00-0.03 10 3/uLPerforming Lab:see noteML - [facility] LBPROF CHEM 8 (BAS METB) Reviewed date:10/01/2024 03:36:44 PM Interpretation: Performing Lab: Notes/Report: [facility] ,Gssmbg664406-535 mmol/LPotassium4.23.5-5.1 mmol/GLwkygver96839-186 mmol/LCarbon Epjdjor07.621.0-32.0 mmol/LAnion Gap10.9Crwmpqg75064-649 mg/dLBlood Urea Tpcdgdwt14.07.0-18.0 mg/dLCreatinine0.740.55-1.02 mg/dLEstimated GFR ( [place]>60>=60 mL/min/1.73m 2Estimated GFR (Non- Florencia>60>=60 mL/min/1.73m 2BUN Creatinine Ratio33.0Jhxobkv89.28.5-10.1 mg/dLPerforming Lab:see note - [facility] LBLIVER PROFILE Reviewed date:10/01/2024 03:36:44 PM Interpretation: Performing Lab: Notes/Report: [facility] ,Bilirubin Total0.30.2-1.0 mg/dLBilirubin Direct0.10.0-0.2 mg/dLAspartate Amino Pswdgbfdusn3864-11 U/LAlanine Yxicfjjpgvffaava0299-16 U/LAlkaline Kpiftgwkafj197 46-116 U/LTotal Protein7.36.4-8.2 g/dLAlbumin Level3.83.4-5.0 g/dLGlobulin3.5 Albumin Globulin Ratio1.1Performing Lab:see note - [facility] LB LIPASE Reviewed date:10/01/2024 03:36:44 PM Interpretation: Performing Lab: Notes/Report: [facility] ,Wygxgx067.016.0-77.0 U/LPerforming Lab:see note - [facility] LB AMYLASE Reviewed date:10/01/2024 03:36:44 PM Interpretation: Performing Lab: Notes/Report: [facility] ,Bzjbjfp88443-110 U/LPerforming Lab:see note - [facility] LBVitamin B1 (Thiamine), Blood Reviewed date:08/09/2024 04:01:33 PM Interpretation: Performing Lab: Notes/Report: [facility] ,Vitamin B1 (Thiamine), Qhxky989.166.5-200.0 nmol/L This test was developed and its performance characteristics determined by [facility]. It has not been cleared or approved by the Food and Drug Administration. Performed at: [address] [id number] [place]: Toni Guidry MD, Phone: [phone] Performing Lab:see amanda - [facility] LBT4 Reviewed date:07/22/2025 05:55:27 PM Interpretation: Performing Lab: Notes/Report: [facility] ,T4 Thyroxine8.004.80-13.90 ug/dLPerforming Lab:see note - [facility] LBTSH Reviewed date:07/22/2025 05:55:27 PM Interpretation: Performing Lab: Notes/Report: [facility] ,Thyroid Stimulating Hormone3.2250.358-3.740 uIU/mLPerforming Lab:[facility] noteH[facility] LBVITAMIN D 25 [place] Reviewed date:07/22/2025 05:55:27 PM Interpretation: Performing Lab: Notes/Report: [facility] ,Vitamin D60.1 <20 ng/mL Vit D deficient 20-<30 ng/mL Vit D insufficient 30-100 ng/mL Vit D sufficient >100 ng/mL Potential Toxicity Performing Lab:see note - [facility] LBOccult Blood* Reviewed date:07/29/2025 05:01:27 PM Interpretation: Performing Lab: Notes/Report: [facility] ,Occult BloodPositivePerforming Lab:see note - [facility] LB Reason For Referral Diagnosis 1 Chronic pancreatitis (K86.1) Referral Organization [facility] Referring Provider First Name Deacon Referring Provider Last Name Anjelica Referring Provider Speciality [facility] wilfrid Referred Provider Chauncey Cooper Referred Provider Specialty Gastroentero logy Referral Priority Routine Medications Medication SIG (Take, Route, Frequency, Duration) Notes Start Date End Date Status Citalopram Hydrobromide 40 MG 1 tablet Orally On ce a day; Duration: 30 days ActiveOndansetron 4 MG1 tablet on the tongue and allow to dissolve Orally qid 5ActiveCevimeline HCl 30 MG1 capsule Orally qid; Duration: 90 days 4ActiveNystatin 251805 UNIT/GM1 application Externally Twice a day; Duration: 30 days4ActiveAspirin Low Dose 81 MGOral; Duration: 90 Days ActiveNitroglycerin 0.4 MGplace 1 tablet under the tongue if needed every 5 minutes for nimco... (REFER TO PRESCRIPTION NOTES).Sublingual; Duration: 30 Days ActiveMometasone Furoate 0.1 % 1 application Externally BID; Duration: 30 days Thin application to area of rash 5ActiveFluticasone Propionate 50 MCG/ACTINSTILL 1 SPRAY IN EACH NOSTIRL TWICE A DAY.; Duration: 90 daysActiveEstradiolActivePreserVision AREDSActive Diclofenac Sodium 3 %1 application Externally Twice a day; Duration: 30 days 5ActivePancrelipase (Rsf-Wjyv-Phys) 21087-26095 UNIT1 capsule Orally ac and hs09/25/2024ctiveClopidogrel Bisulfate 75 MG1 tablet Orally Once a day 08/27/2024ctiveoxyCODONE HCl 5 MGOral; Duration: 6 DaysActiveHyoscyamine Sulfate 0.125 MG1-2 tabs SL SL every 4 hrs PRN abd pain5Active hydroCHLOROthiazide 25 MGTAKE 1 TABLET BY MOUTH EVERY MORNING; Duration: 30 ActivetraMADol HCl 50 MG1 tablet as needed Orally 4 times a day; Duration: 7 days01/24/2024ctivehydroCHLOROthiazide 12.5 MGOral; Duration: 90 DaysActive Tamsulosin HCl 0.4 MG1 capsule Orally BID; Duration: 90 daysActiveRABEprazole Sodium 20 MGTAKE 1 TABLET TWICE A DAY; Duration: 90 daysActive Immunizations Vaccine Route Administration Date Status Comme nts Flu, -historic- Novel H1N1-0 9, preservative free Unknown 07/29/2009 Administered Flu, Flucelvax (28149) 1 yrs+, single-dose syringe (5731-1431)Yyjhsnw7607/26/2017 AdministeredFlu, Fluzone (43002) 6 mos+, single-dose syringe/vial (2602-3747) Qfkjvkh98/05/2023AdministeredFlu, PpmqtxolhxcYmgvsbg98/15/2014dministered Pneumococcal (Pneumovax 23)Muqgxre8805/09/20170604WuvuurjlhjscHAOP-NTS-1 (COVID 19 Pfizer 30mcg/0.3mL)Yzsflqg7601/08/20210368ZlxiiacbzjxkFWVW-AUU-4 (COVID 19 Pfizer 30mcg/0.3mL)Herjvhw1101/08/2021dministered Social History Tobacco Use: Social History Observation Description Date Details (start date - stop date) Never Smoker NA - NA Tobacco Use/Smoking Question Answer Notes Patient is a nonsmoker Alcohol Screen (Audit-C) Question Answer Notes Did you have a drink containing alcohol in the p ast year? Yes How often did you have 6 or more drinks on one occasion in the past year?Never (0 point)How many drinks did you have on a typical day when you were drinking in the past year?1 or 2 drinks (0 point)How often did you have a drink containing alcohol in the past year?Monthly (2 points)Wpxnlo4AinrifjltcwpjqWdpkbvkpQZQOK-H (Standard) Question Answer Notes Did you have a drink containing alcohol in the p ast year? 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) ActiveconfirmedProblemSnoring (82653423)Snoring (R06.83)ActiveconfirmedProblem Right upper quadrant pain (703484070)Right upper quadrant pain (R10.11)Active confirmedProblemAbdominal pain (76721691)Abdominal pain (R10.9)Activeconfirmed ProblemFatigue (49269922)Fatigue (R53.83)ActiveconfirmedProblemHyperlipidemia (33051519)Hyperlipidemia (E78.5)ActiveconfirmedProblemHyperlipidaemia (38707145) Hyperlipemia (E78.5)ActiveconfirmedProblemHypertension (42937915)Hypertension (I10)ActiveconfirmedProblemGastroesophageal reflux disease (896384149)GERD (gastroesophageal reflux disease) (K21.9)ActiveconfirmedProblemCoronary artery disease (25196847)CAD (coronary artery disease) (I25.10)ActiveconfirmedProblem Ischemic cardiomyopathy (634690627)Cardiomyopathy, ischemic (I25.5)Active confirmedProblemDepression (818246555)Depression (F32.9)ActiveconfirmedProblem Essential hypertension (94640268)Benign essential HTN (I10)Activeconfirmed ProblemHypertriglyceridemia (004108038)Hypertriglyceridemia (E78.1)Active confirmedProblemArthralgia (49754701)Arthralgia (M25.50)ActiveconfirmedProblem Well adult (471497561)Well adult (Z00.00)ActiveconfirmedProblemChronic pancreatitis (178266817)Chronic pancreatitis (K86.1)ActiveconfirmedProblem Essential hypertension (70719448)BP (high blood pressure) (I10)Activeconfirmed Problemhypercholesterolemia (disorder) (18084843)Hypercholesteremia (E78.00) ActiveconfirmedProblemHypercholesterolemia (56858995)Hypercholesterolemia (E78.00)ActiveconfirmedProblemType II diabetes mellitus without complication (085019618)Controlled type 2 diabetes mellitus (E11.9)ActiveconfirmedProblem Acute UTI (urinary tract infection) (395664955)Acute UTI (urinary tract infection) (N39.0)ActiveconfirmedProblemOld myocardial infarction (1920655)Acute myocardial infarct greater than 3 months ago (I25.2)ActiveconfirmedProblemAcute pancreatitis (300384414)Acute pancreatitis (K85.90)Activeconfirmed Vital Signs Temperature 97.6 degrees Fahrenheit 02/18/2025 Blood pressure yrejohgzf77 mm Hg07/20/20251911Emsaka00 in07/20/2025lood pressure xegspoit740 mm Hg07/20/20250247Drielo285.4 lbs1MI32.66 kg/m207/20/2025 Procedures Procedure Date Ordered Date Performed Result Body Sit e Sleep study - Diagnostic Polysonogram 01/08/2025 N/A Encounters Encounter Location Date Provider Diagnosis [facility] [address] [place] [address] 07/06/2025 Deacon Hoy Acute pancreatitis K 85.90 [facility] [address] [place] [address] 08/27/2024 Deacon Gordilloy CAD (coronary artery disease) I25.10 ; Hypertriglyceridemia E78.1 and Hypertension I10 [facility] [address] [place] [address] 10/07/2024 Deacon Hoy Chronic pancreatitis K86.[address] [address] 01/08/2025 Deacon Hoy Fatigue R53.83 ; Sno ring R06.83 and Chronic pancreatitis K86.1 [facility] [address] [facility] [place] [address] 02/18/2025 Deacon Gordilloy Acute bronchitis, un specified organism J20.9 [facility] [address] [facility] [place] [address] 07/14/2025 Deacon Hoy GERD (gastroesophage al reflux disease) K21.9 and Acute pancreatitis K85.90 [facility] [address] [facility] [place] [address] 07/20/2025 Deacon Gordilloy Well adult Z00.00 [facility] [address] [facility] [place] [address] 07/29/2025 Deacon Hoy [facility] [facility] [place] [address] 08/05/2024[facility] [facility] [place] [address]/oug [facility] [facility] [place] [address]/ou[facility] [facility] [place] [address]/ou[facility] [facility] [place] [address]/11/2024Doug Benjamin [facility] [facility] [place] [address]/03/2025 Deacon HoyChronic pancreatitis K86.1[facility] [facility] [place] [address]/07/2025Doug Benjamin [facility] [address] [facility] [place] [address]/Doug HoyAcute pancreatitis K85.90[facility] [facility] [place] [address] 01/02/2025Doug [facility] [place] [address]/08/2025Doug Benjamin [facility] [place] [address]/01/2025Doug HoyChronic pancreatitis K86.1B[facility] [place] [address]/01/2025 Deacon HoyChronic pancreatitis K86.1[facility] [place] [address]/Doug Benjamin [facility] [place] [address]/03/2025Doug yFatigue R53.83[facility] [place] [address]/03/2025 [facility] [place] [address]/Doug Benjamin [facility] [place] [address]Doug Benjamin [facility] [place] [address]Doug Benjamin [facility] [place] [address]Doug Benjamin [facility] [place] [address]/12/2024 Deacon Benjamin [facility] [place] [address]/05/2025Doug Benjamin [facility] [place] [address]Doug Benjamin [facility] [place] [address]/Doug Benjamin [facility] [place] [address]Deacon Dejesus Assessments Encounter Date Diagnosis (ICD Code) Assessment Notes Treatment Notes Treatment Clinical Notes Section Notes 07/06/2025 Acute pancreatitis (ICD-10 - K85 .90) 07/14/2025GERD (gastroesophageal reflux disease) (ICD-10 - K21.9)07/14/2025ute pancreatitis (ICD-10 - K85.90)5Chronic pancreatitis (ICD-10 - K86.1) 5Acute pancreatitis (ICD-10 - K85.90)03/05/2025hronic pancreatitis (ICD-10 - K86.1)03/05/2025hronic pancreatitis (ICD-10 - K86.1)05/06/2025Fatigue (ICD-10 - R53.83)4CAD (coronary artery disease) (ICD-10 - I25.10) 08/27/2024Hypertriglyceridemia (ICD-10 - E78.1)10/07/2024hronic pancreatitis (ICD-10 - K86.1)referral to Dr Ross01/08/2025Fatigue (ICD-10 - R53.83) 01/08/2025Snoring (ICD-10 - R06.83)02/18/2025ute bronchitis, unspecified organism (ICD-10 - J20.9)Rest and drink more liquids, especially water. You may use a humidifier or vaporizer to help keep the drainage moist. Ipts-vfu-kccqblq Nasal Saline may help the stuffy and runny nose. Use Ibuprofen and or Tylenol as needed for fever, chills, body aches or pain. Children 5 years old should not be given stvm-wqu-mgzkndd cough and cold medications such as guaifenesin and dextromethorphan. If you're over age 5, you may try qsgn-zjo-lweddxk cold medications such as guaifenesin and dextromethorphan, or multi-symptom cold reliever such as Dayquil to help reduce the symptoms. Antibiotics have been pre scribed. You should take these until completed and follow the directions. Antibiotics can sometimescause upset stomach, and in rare cases, serious allergic reactions or serious gastrointestinal problems. If you start having severe abdominal pain, severe vomiting, or bloody diarrhea, you should be r eevaluated by your physician or urgent care immediately. Follow up with your Primary Care Provider or return to clinic if symptoms do not improve within 3-5 days. If you develop severe symptoms such as shortness of breath, repeated vomiting, coughing up blood, or chest pain you should go to the emergency room or call [phone] adult (ICD-10 - Z00.00)still iwht chronic kvjin0brsxdyuu41/10/2025hronic pancreatitis (ICD-10 - K86.1)08/27/2024 Hypertension (ICD-10 - I10) Plan Of Treatment Pending Test Test Name Order Date CMP (COMPLETE METABOLIC PANEL) CMP (COMPLETE METABOLIC PANEL) HEMOGLOBIN A1C (GLYCO) 11/12/2023 HEMOGLOBIN A1C (GLYCO) 07/20/2025 IRON, TOTAL 07/20/2025 IRON, TOTAL 11/12/2023 LIPID PANEL (CHOL/TRIG/HDL/LDL) 11/12/19 24 LIPID PANEL (CHOL/TRIG/HDL/LDL) 07/20/20 25 CBC WITH DIFF 11/12/2023 CBC WITH DIFF 01/31/2024 UA (REFLEX URINALYSIS TO CULTURE) 2023 VITAMIN D, 25 LEVEL (TOTAL) 11/12/2023 VITAMIN D, 25 LEVEL (TOTAL) 07/20/2025 US Transvaginal Pelvic 03/08/2023 Urinalysis Microscopic 04/28/2024 Urinalysis Microscopic 11/12/2023 Sleep study - Diagnostic Polysonogram ACUTE HEPATITIS PANEL 11/13/2023 Insulin Level 07/20/2025 Insulin Level 11/12/2023 COMPREHENSIVE METABOLIC PROFILE WITH GFR 11/27/2024 CMP - Comprehensive Metabolic Panel 05/0 11/2023 CBC W/AUTO DIFF 01/31/2024 CBC W/AUTO DIFF 11/27/2024 STOOL OCCULT BLOOD 07/20/2025 AMYLASE 08/27/2024 AMYLASE 11/27/2024 CULTURE URINE 11/12/2023 CULTURE URINE 04/28/2024 LIPASE 08/27/2024 LIPASE 11/27/2024 LIPID PROFILE 08/27/2024 LIVER PROFILE 11/13/2023 PROF 14(COMP METB) 08/27/2024 SED RATE WESTERGREN 07/14/2025 US ABD 04/28/2024 THYROID PANEL (T4/TSH/FREE T3) THYROID PANEL (T4/TSH/FREE T3) 5 MM screening mammo BI 07/20/2025 US abdomen complete 01/24/2024 CMP (COMP MET MIKE) w/eGFR CKD-EPI 2024 CBC WITH DIFF 07/20/2025 Insurance Providers Payer Name Payer Address Payer Phone Subscriber Number Group Number Insured Name Patient Relationship to Insured Coverage Start Date Coverage End Date [employer] ACC[employer] PPO PLUS LOCAL PLAN [address] [place] [address] [id number] Jose Alberto Saleem Self - patient [...] History Surgery Date(Month/Year) endoscope 03/06/24 Cardiac Cath, Bsqf1538Zyzpqyvpzd Vascular AngioplastyCoronary Artery Disease- S/P Bypass- 4 Vessels- CCFCholecystectomyDecompression of median nerve and release and transverse carpal ligament- Right, Dr. Mckeon07/19/2022ysto, Dr. Stoll04/24/2018 & 07/24/2018Gastric Mmhdvj1901/29/2018Sinus Surgery, Dr. Messer12/2017Hysteroscopy and D&06/18/2023Hospitalization History Reason Date(Month/Year) Pancreatitis 2024 Pancratitis 2023
--- OUTSIDE RECORDS SUMMARY | 2025-07-29 17:10 | XMS_ITS | Clinical Summary ---
Author Organization [facility] Address [address] [place] [address] Care Team Providers Care Second Vp Hr Assessment Name Role Phone Ziggy Dejesus MD Primary Care Provider [phone] Allergies Active AllergyReactionsCriticalityNoted DateCommentsBaclofenAnaphylaxis,Other, Shortness of jgmxhnEsug82/10/2017 bradypnea FenofibrateGI kvombqyffak54/22/2009 Other reaction(s): (Louis) 08/08/2011 Other reaction(s): Intolerance elevated liver enzymes elevated liver enzymes Other reaction(s): (Louis) 08/08/2011 Fenofibrate MicronizedGI bwzhzamuaij84/22/2009 elevated liver enzymes Other reaction(s): Intolerance elevated liver enzymes NnnneqpmljhPywjtxr94/14/2006 PT TOLERATES CRESTOR Latex, Natural RubberAnaphylaxis,Shortness of xwxorcBqyq35/16/2006Levofloxacin Other,Fvebrcdw66/10/2017 thrush Other Reaction(s): Other (See Comments), thrush thrush PenicillinsAnaphylaxis,Hives,Rash,Shortness of bxlexkErrn89/14/2006 PhenazopyridineGI intolerance,Nausea And Jktcgwpq69/14/2006RosuvastatinGI intolerance,MfvscIlhnag16/10/2017 Elevated liver enzymes, pt cannot take this in addition with fenofibrate XazpxjglzsfRkisinl49/14/2006 PT TOLERATES CRESTOR Sulfa (Sulfonamide Antibiotics)Hives,Shortness of uqrddqIgvr03/14/2006 Other Reaction(s): Other (See Comments) Sulfamethoxazole-BpzxiyyatnezApkflTfylsm01/19/5048ScvcotdxuzRwvxCfq43/04/2023 GivgdcnmkduhSywsr15/01/2023 Other reaction(s): Hives Medications MedicationSigDispense QuantityRefillsLast FilledStart [...] NOSTIRL TWICE A DAY. for 90Active HYDROcodone-acetaminophen (Eva) 5-325 mg tablet 01/03/2025tive hyoscyamine (Anaspaz,Levsin) 0.125 mg tablet 2 tablet as needed Orally every 4 hrs PRN abd pain04/28/2024ctive ondansetron ODT (Zofran-ODT) 4 mg disintegrating tablet 01/03/2025tive hydroCHLOROthiazide (HYDRODiuril) 25 mg tablet 03/16/2025tive pancrelipase, Gwy-Vfat-Ysje, (Creon) 12,000-38,000 -60,000 unit capsule Indications:Pancreatic insufficiency1 capsule before snack. 90 capsule 08/19/2025Active pancrelipase, Wbh-Fraq-Wzzg, (Creon) 36,000-114,000- 180,000 unit capsule,delayed release(DR/EC) capsule Indications:Pancreatic insufficiencyTake 1 capsule by mouth with breakfast, with lunch, and with evening meal. Take 1 capsule before each meal 270 capsule /510/6Active pancrelipase, Bvl-Bapz-Swmh, (Creon) 36,000-114,000- 180,000 unit capsule,delayed release(DR/EC) capsule Indications:Pancreatic insufficiencyTake 1 capsule by mouth with breakfast, with lunch, and with evening meal. Take 1 capsule before each meal 270 capsule Discontinued(Reorder) Active Problems ProblemNoted DateDiagnosed DateBMI 30.0-30.9,adult09/05/2024S/P PTCA (percutaneous transluminal coronary angioplasty)09/05/2024Statin intolerance 09/05/2024ngina ilxrqlyw82/28/2024 Overview (02/26/2024): non for 4 yrs Cellulitis of right foot due to methicillin-resistant Staphylococcus aureus 02/26/2024 Overview (02/26/2024): nare after surgery Wrpximkuehmicxighpbj08/28/2024Peripheral edema02/26/20245099Clhvijnvzq09/28/2024 Atherosclerosis of coronary artery of [place] heart without angina pectoris 08/09/2023Essential hypertension, hcqdou0708/09/2023History of coronary artery bypass graft08/09/2023Ischemic afrhfprrowgjtu51/09/2023aroxysmal SVT (supraventricular tachycardia)08/09/2023Ventricular septal djofbk9708/09/2023 Chronic wcazsivljzqp94/04/2023ry nose03/20/2022ther chronic allergic jazocawuqhtgfc91/14/2021Morbid oncjguj8101/31/2018S/P nasal uulmcqnwrgr19/14/2017 Acute myocardial ggegxwvomz66/10/2017Clotting efvrhvfl54/10/2017Diabetes 07/10/2017GERD (gastroesophageal reflux disease)07/10/2017Heart disease 07/10/2017Kidney lhhhsrl1907/10/2017 Encounters DateTypeDepartmentCare EzneBihtzqrfjls40/23/2025Orders Only [facility] Gastroenter[address] [place] [phone] Claribel Jacobo, LUCIEN Pancreatic nujwoygpygyij22/19/2025Telephone [facility] Endoscopy [address] [place] [phone] Gisela Arellano RN 05/19/2025Orders Only [facility]astroenter[address] [place] [phone] Roberto Watson MD Pancreatic ppbtxktbuanww96/14/2025Telephone [address] [phone] Nicole Locke MA 05/14/2025[address] [phone] Nicole Locke MA 05/14/2025Telephone [address] [place] [phone] Roberto Watson MD 05/14/2025Telephone [facility] Endoscopy [address] [place] [phone] Gisela Arellano, LUCIEN 05/08/2025 10:30 AM EDTFollow-Up [address] [phone] Chauncey Cooper MD Pancreatic insufficiency (Primary Dx); Sphincter of Oddi dysfunctionfrom Last 3 Months Immunizations ImmunizationAdministration DatesNext DueInfluenza, High Dose Seasonal, Preservative Free2022Influenza, Unokvqodmbk45/30/2021Influenza, injectable, MDCK, preservative free, czocoxfruyaa61/03/2021,07/26/2017Influenza, injectable, quadrivalent, preservative free06/05/2023,06/16/2022,2020, 07/23/2018Influenza, seasonal, gjqrvasepl06/15/2014Influenza, seasonal, injectable, preservative free, 6 moonths & older06/05/2024,07/03/2015Novel abaqygphd-O2Z9-54, preservative-free07/29/2009Pfizer SARS-CoV-2 Vaccination 1Pneumococcal Polysaccharide VZN763105/09/2017Zoster, Recombinant 08/21/2022,06/16/2022 Family History Medical HistoryRelationNameCommentsHyperlipidemiaBrother 1BudHeart [...] partner or ex-partner?No02/27/2024HQ-2 AnswerDate RecordedPatient Health Questionnaire-2 Yvpci9914 CommentsUnknownSex and Gender InformationValueDate RecordedSex Assigned at Zucmvz6202/27/2024 10:42 AM EDTLegal ExhSkgxhy18/13/2023 9:56 AM ESTGender BzlozljzQublka24/29/2024 10:42 AM EDTSexual OrientationHeterosexual or Straight 02/27/2024 10:42 AM EDT Last Filed Vital Signs Vital SignReadingTime TakenCommentsBlood Dsntaavz200/8008 10:34 AM EDT Eekyt310105/08/2025 10:34 AM EDTTemperature--Respiratory Vekm402405/08/2025 10:34 AM EDTOxygen Saturation--Inhaled Oxygen Concentration--Cawhfp46.6 kg (182 lb) 05/08/2025 10:34 AM LBIBoflnv317 cm (5' 3 )05/08/2025 10:34 AM EDTBody Mass Index32.24005/08/2025 10:34 AM EDT Plan of Treatment Health MaintenanceDue DateLast DoneCommentsCT Kzxdvpejwaqs1964Colonoscopy 1964Colorectal Cancer Sxsawbkyj1964FIT-DNA1964FIT1964 FOBT06/09/19648148Klhrfaxnxxxbx1964Diabetes: Retinopathy Lxrirawxj43/09/1974 Depression Lplvivryj30/09/1976Diabetes: Urine Protein Vinuqbyzo50/09/1983Adult Yjnhrks1506/09/1986Pneumococcal Vaccine: Pediatrics (0 to 5 Years) and At-Risk Patients (6 to 64 Years) (2 of 2 - PCV)Diabetes: Hemoglobin A1C/9860Dqrapttya69/24/088330/2Pap Smear02/07/2025 02/07/2022OVID-19 Vaccine ( season)/10/2020, 01/29/2021, 01/08/2021Influenza Vaccine (#1)509/01/2024, 06/05/2023, 06/16/2022, Additional history existsCervical Cancer Yhnnqtdmg03/10/2027HPV/Inuskt0902/07/2027 02/07/2022Zoster JqyhkfcxUvnvhkwfy18/21/2022, 06/16/2022HIB VaccinesAged OutNo longer eligible based on [...] complete this topic Procedures Procedure NamePriorityDate/TimeAssociated DiagnosisCommentsHEMOGLOBIN B2FHpwshbh 02/27/2024 12:18 PM EDT Elevated LFTs from Last 3 Months or Most Recently Relevant to Health Maintenance Results * Hemoglobin A1c (02/27/2024 12:18 PM EDT)ComponentValueRef RangeTest Method Analysis TimePerformed AtPathologist SignatureHemoglobin A1C5.14.0 - 6.0 % 02/27/2024 2:02 PM [facility]Estimated Average Gmgcjyg082 mg/dL02/27/2024 2:02 PM [facility]Specimen (Source) Anatomical Location / LateralityCollection Method / VolumeCollection Time Received TimeBloodVenous blood specimen / UnknownVenipuncture / Unknown 02/27/2024 12:18 PM EDT02/27/2024 12:18 PM EDT Narrative Authorizing ProviderResult TypeResult StatusYaseen Sherita MDLAB BLOOD ORDERABLESFinal ResultPerforming OrganizationAddressCity/State/ZIP CodePhone Number [facility] ([facility]) [address] [place], [place] [id number] from Last 3 Months or Most Recently Relevant to Health Maintenance Insurance Care Teams Team MemberRelationshipSpecialtyStart DateEnd Date Ziggy Dejesus MD [address] [facility] [place] [address] [facility]02/18/24
--- OUTSIDE RECORDS SUMMARY | 2025-07-29 17:10 | XMS_ITS | Clinical Summary ---
Author Organization [facility] Address [address] [place] [address] Care Team Providers Care Signal And Communications Maintainer Name Role Phone Ziggy Dejesus MD Primary Care Provider [phone] Allergies Active AllergyReactionsCriticalityNoted DateCommentsLatexAnaphylaxis,Shortness of YniqcfKvii39/16/2006Fluvastatin Nxlbet3103/14/2006 PT TOLERATES CRESTOR ZupxjnxolwsEkifb92/14/2006Phenazopyridine Hcl03/14/2006Sulfa (Sulfonamide Antibiotics)Hives03/14/2006Fenofibrate RsnwmdsdwqRxkfilkczhd07/22/2009 elevated liver enzymes Jweqvgtxpox69/14/2006 PT TOLERATES CRESTOR Medications MedicationSigDispense QuantityRefillsLast FilledStart [...] esters(LOVAZA 1 GRAM CAP) Indications:Other and unspecified dqelcgyeyhvxiv5mggu twice daily 0 ctive ASPIRIN 325 MG [...] Active Problems ProblemNoted DateDiagnosed DateOther and unspecified xgdouquqhkgpif66/22/2009 Family History Medical HistoryRelationCommentsCoronary Artery DiseaseFatherCoronary Artery DiseaseMother3 and 4 vessel CABG twiceCoronary Artery DiseasePaternal Uncle 1 Coronary Artery DiseasePaternal Uncle 2RelationStatusCommentsFatherMother Paternal Uncle 1Paternal Uncle 2 Social History Tobacco UseTypesPacks/DayYears UsedDateSmoking Tobacco: NeverAlcohol UseStandard Drinks/WeekCommentsYes0 (1 standard drink = 0.6 oz pure alcohol)special occassionsCommentsNoSex and Gender InformationValueDate RecordedSex Assigned at BirthNot on fileLegal LlaItobfp01/02/2012 9:48 AM ESTGender Identity Not on fileSexual OrientationNot on fileOccupationIndustryJob Start DateJob End DateRNNot on fileNot on fileNot on file Last Filed Vital Signs Vital SignReadingTime TakenCommentsBlood Irkcabfo005/70003/24/2010 11:56 AM EDT (from Extended Vitals)Flvyw558703/24/2010 11:56 AM EDT(from Extended Vitals) Suwqtiubpvq93 ??C (98.6 ??F)03/23/2006 11:00 AM EDTRespiratory Plsa823303/23/2006 11:00 AM EDTOxygen Dujuennyln77%03/23/2006 11:00 AM EDTInhaled Oxygen Concentration--Vktjdl75.7 kg (200 lb)03/24/2010 11:53 AM QUQGmtlme160 cm (5' 3 ) 03/24/2010 11:53 AM EDTBody Mass Index35.43003/24/2010 11:53 AM EDT Plan of Treatment Health MaintenanceDue DateLast DoneCommentsAnxiety Kxwoamrzv26/09/1982Depression Ksiouhjnh61/09/1982HIV Shuuankro31/09/1982Hepatitis C Ganvletrw67/09/1982 DTaP,Tdap,Td Vaccine (1 - Tdap)1983Cervical Cancer Agcynhuim27/09/1985 Mammogram Bstywnjaq45/09/2004CT Otfjhrparqlv36/09/2009Cologuard (FIT-DNA) 06/09/20097101Tyegkdgetiv24/09/2009Colorectal Cancer Dgglljvvt88/09/2009Fecal Occult Blood06/09/20090375Hqdslqpvfgxkb27/09/2009Diabetes Otksfskil32, 03/22/2009, 03/23/2006, Additional history existsLipid Edmnyatqh38/22/2014 03/22/2009, 03/22/2009, 03/15/2006Pneumococcal Vaccine: 50+ (1 of 1 - PCV) 2014Shingrix Vaccine (1 of 2)2014Covid-19 Vaccine (1 - 2024- season)2025Influenza Vaccine (#1)2025RSV Vaccine (1 - 1-dose 75+ series)2039 Procedures Procedure NamePriorityDate/TimeAssociated DiagnosisCommentsHEMOGLOBIN M7ZOrxjbeh 03/22/2009 12:34 PM EDT Hyperlipidemia Nec/Nos Impaired Fasting Glucose LIPID PANEL, WAMJOLZQwzaaxi52/22/2009 12:34 PM EDT Hyperlipidemia Nec/Nos from Last 3 Months or Most Recently Relevant to Health Maintenance Results * (ABNORMAL) LIPID PANEL BASIC (03/22/2009 12:34 PM EDT)ComponentValueRef Range Test MethodAnalysis TimePerformed AtPathologist FbgvwxakqYlfbvvhqlhjy0558(H)30 - 149 mg/dLMER[facility] MAIN LABORATORYComment: Patient may be at risk for acute pancreatitis due to marked hypertriglyceridemia. Cholesterol, Rygoc130(H)100 - 199 mg/dLMERCY [facility]ALTH [facility]BUR[facility] MAIN LABORATORYHDL Rawlnpzxafm02(L)>55 mg/dLSHELBY MEMORIAL HOSPITAL LABORATORYVLDL CholesterolUnable to calculate due to increased Triglycerides. See LDL-Chol, Direct.6 - 40 mg/dL [facility] MAIN LABORATORYLDL Cholesterol, CalculatedUnable to calculate due to increased Triglycerides. See LDL-Chol, Direct.60 - 129 mg/dLMER[facility]ALTH [facility] MAIN LABORATORYFasting Knam64amoVJXYOEGBB CLINIC MAIN LABORATORYTC:HDL Ratio11.84(H)1.00 - 5.00[facility] MAIN LABORATORYLDL:HDL RatioUnable to calculate0.50 - 3.55[facility] LABORATORYNon HDL Jyqqkkjvism301(H)90 - 159 mg/dLSHELBY MEMORIAL HOSPITAL LABORATORYSpecimen (Source)Anatomical Location / LateralityCollection Method / VolumeCollection TimeReceived TimeBlood specimen (specimen)BLOOD SPECIMEN / Lsbrvmv4403/22/2009 12:34 PM EDT Narrative Authorizing ProviderResult TypeResult StatusBetjoni Park MDLABORATORYFinal ResultPerforming OrganizationAddressCity/State/ZIP CodePhone Number [facility] [address] [place] [address] * HGB A1C (03/22/2009 12:34 PM EDT)ComponentValueRef RangeTest MethodAnalysis TimePerformed AtPathologist SignatureHemoglobin A1C5.64.0 - 6.0 %[facility] LABORATORYSpecimen (Source)Anatomical Location / Laterality Collection Method / VolumeCollection TimeReceived TimeBlood specimen (specimen)BLOOD SPECIMEN / Qdelzca9303/22/2009 12:34 PM EDT Narrative Authorizing ProviderResult TypeResult StatusBetjoni Park MDLABORATORYFinal ResultPerforming OrganizationAddressCity/State/ZIP CodePhone Number [facility] [address] [place] [address] from Last 3 Months or Most Recently Relevant to Health Maintenance Insurance * Guarantor: Tiarra Carney TypeRelation to PatientDate of BirthPhone Billing PsdfdxlCunyytAczf1965 [address] [place] [address] Care Teams Team MemberRelationshipSpecialtyStart DateEnd Ziggy Dejesus MD [address] [place] [address] [facility] - General03/15/06
--- OUTSIDE RECORDS SUMMARY | 2025-07-29 17:10 | XMS_ITS | Clinical Summary ---
Author Organization [facility] Address [address] [place] [address] Phone Care Team Providers Care Shopper Marketing Manager Name Role Phone Ziggy Dejesus MD Primary Care Provider [phone] Allergies Active AllergyReactionsCriticalityNoted DateCommentsBaclofenShortness of breath High08/09/2023LatexShortness of gxiisnHjjw32/09/5788ZaqdypfqkrrYqplSap85/09/2023 JvnlffkstdhbOipebTfxzcg35/09/2023Sulfa (Sulfonamide Antibiotics)Shortness of pltqdaKnfx60/09/2023Sulfamethoxazole-MmbbfmufmxuoPmfcfZnmhez28/09/2023 Medications MedicationSigDispense QuantityRefillsLast FilledStart DateEnd DateStatus cevimeline [...] to affected area twice a day if hcxinv0505/05/2020Active Aciphex EC tablet Take 1 tablet (20 [...] SL tablet Indications:Atherosclerosis of coronary artery of [place] heart without angina pectoris, unspecified vessel or [...] Indications:Atherosclerosis of coronary artery bypass graft of [place] heart without angina pectoris,S/P PTCA (percutaneous transluminal coronary angioplasty),History of coronary artery bypass graftTake 1 tablet (75 mg) by mouth once daily. 90 tablet 5Active amLODIPine (Norvasc) 2.5 mg tablet Indications:Essential hypertensionTake 1 tablet (2.5 mg) by mouth once daily. 90 tablet /5Active aspirin 81 mg EC tablet Indications:Atherosclerosis of coronary artery bypass graft of [place] heart without angina pectorisTAKE 1 TABLET BY MOUTH DAILY 90 tablet 5Active Active Problems ProblemNoted DateDiagnosed DateStatin qnixgjvzgkt80/06/2024MI 30.0-30.9,adult 09/05/2024S/P PTCA (percutaneous transluminal coronary angioplasty)09/05/2024 Eidfrtekiugg36/13/2024therosclerosis of coronary artery of [place] heart without angina yzihmedk11/09/2023Essential xwzzhoqfjqje10/09/2023History of coronary artery bypass graft08/09/20232619Cbarktjqhiragx75/09/2023Ischemic cardiomyopathy 08/09/2023aroxysmal SVT (supraventricular tachycardia)08/09/2023Ventricular septal fwpofl8608/09/2023 Family History Medical HistoryRelationNameCommentsHeart attackBrother2 broStrokeBrother2 bro open heartBrother2 broRelationNameStatusCommentsBrother2 bro Social History Tobacco UseTypesPacks/DayYears UsedDateSmoking Tobacco: NeverSmokeless Tobacco: Never Tobacco Cessation:Counseling Given: Yes Alcohol UseStandard Drinks/WeekCommentsNever0 (1 standard drink = 0.6 oz pure alcohol)CommentsUnknownSex and Gender InformationValueDate RecordedSex Assigned at BirthNot on fileLegal XclEzwxqr35/26/2022 5:40 AM ESTGender Identity Not on fileSexual OrientationNot on file Last Filed Vital Signs Vital SignReadingTime TakenCommentsBlood Lfnwpkcm359/80111/06/2023 9:53 AM EST Csvhi540709/05/2024 9:53 AM ESTTemperature--Respiratory Rate--Oxygen Saturation-- Inhaled Oxygen Concentration--Shcvnh78.1 kg (170 lb)09/05/2024 9:53 AM ESTHeight 160 cm (5' 3 )09/05/2024 9:53 AM ESTBody Mass Index30.11111/06/2023 9:53 AM EST Plan of Treatment DateTypeDepartmentCare Team (Latest Contact Info)Zklpipnmxom30/18/2025 11:20 AM ESTOffice Visit [facility] [address] [facility] [address] [place] [address] Celso Garibay, [address] [facility] [address] [place] [address] Health MaintenanceDue DateLast DoneCommentsCT Yzxgaytpsbzw1964FIT-DNA (Cologuard)1964FIT1964HIV Otabqrahf1964Lipid Panel1964 Hynrpqdewuvce1964MMR Vaccines (1 of 1 - Standard series)09/09/1965Diabetes Egnepjelg68/09/1982Hepatitis C Tuijpdica69/09/1982HPV/Edyzez4906/09/1985 DTaP/Tdap/Td Vaccines (1 - Tdap)1986RSV High Risk: (Elderly (60+) or Population) (1 - Risk 50-74 years 1-dose series)2014Pneumococcal Vaccine (2 of 2 - PCV)Yearly Adult Oyvfsadj97/17/2024 02/13/2023, 02/07/2022, 02/07/2022, Additional history kazzdkAwoqonaxo18/15/2024 08/15/2023, 07/24/2022, 10/28/2020ervical Cancer Smpwrbeyv47/10/2025Pap Smear , 02/07/2022Influenza Vaccine (#1)509/01/2024, 06/05/2023, 06/16/2022, Additional history existsCOVID-19 Vaccine (2024- season)511/10/2020, 01/29/2021, 01/08/20211244Fsacsalslcw89/02/2033 11/02/2022, 3Colorectal Cancer Wgvikylvs42/02/2033Zoster Vaccines Kjxtxeptf89/21/2022, 06/16/2022HIB VaccinesAged OutNo longer eligible based on [...] CarneyAcconuvia TypeRelation to PatientDate of BirthPhone Billing AddressPersonal/UogovzFkvt1965 [address] [place] [address] Care Teams Team MemberRelationshipSpecialtyStart DateEnd Ziggy Dejesus MD [address] [place], [place] [id number] PCP - Audjibz30/17/21
--- OUTSIDE RECORDS SUMMARY | 2025-07-29 17:10 | XMS_ITS | Clinical Summary ---
Author Organization [facility] Address [id number] [address] [place] [address] Care Team Providers Care Beauty Consultant Name Role Phone Ziggy Dejesus MD Primary Care Provider [phone] Allergies Active AllergyReactionsCriticalityNoted DateCommentsBaclofenOther (See Comments) 07/10/2017 bradypnea Fenofibrate Guuatkwrgh84/22/2009 Other reaction(s): Intolerance elevated liver enzymes ZlrhmMxjaubvlootCgcf44/07/2017LevofloxacinOther (See Comments)07/10/2017 thrush WtcdkiykagzKtgdq11/14/2006Phenazopyridine HclNausea And Qujqehug73/14/2006 RosuvastatinOther (See Comments)07/10/2017 Elevated liver enzymes, pt cannot take this in addition with fenofibrate Sulfa (Sulfonamide Antibiotics)Hives03/14/20064670BlabnsqvusXzdjHxq33/04/2023 Medications MedicationSigDispense QuantityRefillsLast FilledStart DateEnd DateStatus aspirin 81 mg Take 1 tablet (81 mg total) by mouth in the morning.Active RABEprazole (ACIPHEX) 20 mg EC tablet Take 1 tablet (20 mg total) by mouth in the morning and 1 tablet (20 mg total) before bedtime.Active sod kvtcm-rnxnty-wczxpw bottle (NEILMED SINUS RINSE COMPLETE) packet with [...] (three) times a day with meals. Active cylglncm-fefz-HL-calcium &mins (THERAGRAN-M) 9 mg iron-400 mcg tablet [...] in the morning. 16 g ctive vit C,Z-Go-ktghj-lutein-zeaxan (PRESERVISION AREDS-2) 250-90-40-1 mg capsule Take 2 [...] with depression.Active Active Problems ProblemNoted DateDiagnosed DateDry nose03/20/20227069Lrbriyihvq09/14/2021Other chronic allergic ueugwaxpqfwxxc82/14/2021/P nasal tzjnunfvaqf39/14/2017Clotting eqzijzbz82/10/7525Osbvyvax65/10/2017GERD (gastroesophageal reflux disease) 07/10/2017Heart lhkkbdc8507/10/20176404Bvcvmvkneucq78/10/2017Kidney ezgbgkl1707/10/2017 Acute myocardial ttylyrwywr27/10/2017 Immunizations ImmunizationAdministration DatesNext DueCOVID-19, mRNA, LNP-S, PF, 30mcg/0.3mL Dose01/08/2021 Family History Medical HistoryRelationNameCommentsCOPDFatherCoronary artery diseaseFather Peripheral vascular diseaseFatherAnemiaMotherMomEndometrial cancerMotherMomHeart diseaseMotherMomHypertensionMotherMomBreast cancerNeg HxRelationNameStatus CommentsFatherDeceasedMotherMomAlive Social History Tobacco UseTypesPacks/DayYears UsedDateSmoking Tobacco: NeverSmokeless Tobacco: Never Tobacco Cessation:Counseling Given: Not Answered Alcohol UseStandard Drinks/WeekCommentsNo0 (1 standard drink = 0.6 oz pure alcohol)PHQ-2AnswerDate RecordedTotal Elnls1991ChildcareAnswerDate ChyykmpaTmfkdoqhfXrolozy75/04/2019EmploymentAnswerDate RecordedEmploymentUnknown 03/04/2019Hunger ScreeningAnswerDate RecordedWithin the past 12 months we worried whether our food would run out before we got money to buy more.Never True02/29/2024Within the past 12 months the food we bought just didn't last and we didn't have money to get more.Never True4Purpose - LifeAnswerDate RecordedPurpose and direction in pwgqApbhxno89/12/2021CommentsNoSex and Gender InformationValueDate RecordedSex Assigned at BirthNot on fileLegal Sex Fdytjl6905/06/2015 11:31 AM EDTGender IdentityNot on fileSexual OrientationNot on file Last Filed Vital Signs Vital SignReadingTime TakenCommentsBlood Ptkrbsxl252/7306 12:01 PM EDT Hjcjp205503/06/2024 12:01 PM BEAHcmssjbznbf14.1 ??C (97 ??F)03/06/2024 12:01 PM EDTRespiratory Frpd861803/06/2024 12:01 PM EDTOxygen Ctrwiueppo59%03/06/2024 12:01 PM EDTInhaled Oxygen Concentration--Txhitx73.8 kg (167 lb)02/29/2024 11:15 AM DXZRrqkdz414 cm (5' 3 )02/29/2024 11:15 AM EDTBody Mass Index29.58002/29/2024 11:15 AM EDT Plan of Treatment Health MaintenanceDue DateLast DoneCommentsDepression Dyecoykvt73/09/1976 DTaP,Tdap and Td Vaccines (1 - Tdap)1983Pap Smear/07/2022, 02/07/2022, 08/19/2019Adult BMI Igzcqgata10/Tobacco Screening /OVID-19 Vaccine ( - season)/10/2020, 01/29/2021, 01/08/2021Influenza Kowlurc93/01/2024, 06/05/2023, 06/16/2022, Additional history existsZoster (Shingles) VaccineCompleted 08/21/2022, 06/16/2022 Medical Devices ImplantedTypeAreaManufacturerDevice IdentifierShelf Expiration DateModel / Serial / LotTissue Alloderm Nonmesh 2x4cm - Sna - [id number] Implanted:Qty: 1 on 09/06/2017 by [facility]n [facility]oseLIFECELL03/20/2018102009 / NA / [id number] Iol Ultrasert 17.0d - [id number] - [id number] Implanted:Qty: 1 on 11/14/2018 [facility]: [employer]09/30/2020AU00T0 17.0 / [id number] / NASinus Implant Propel Mini - Sna - [id number] Implanted:Qty: 1 on 01/03/2018 by Devaughn Messer MD PhD at [facility] ImplantNoseINTERSECT ENT INC03/06/201860011 / NA / [id number] Implant Propel - Sna - [id number] Implanted:Qty: 2 on 01/03/2018 by [facility]: NoseINTER[employer] INC02/15/[id number] / NA / [id number] Restor Implanted:Qty: 1 on 11/05/2018 by [facility]: [employer]11/29/2019SV25T0 / [id number] / NA Insurance Care Teams Team MemberRelationshipSpecialtyStart DateEnd Ziggy Dejesus MD [facility]02/22/17
--- OUTSIDE RECORDS SUMMARY | 2025-07-29 17:10 | XMS_ITS | Encounter Summary ---
Author Organization [facility] Address [address] [place] [address] Care Team Providers Care [employer] Mechanic Name Role Phone Ziggy Dejeuss MD Primary Care Provider [phone] Encounter Details DateTypeDepartmentCare Team (Latest Contact Info)Yvpabljkdug54/23/2025Orders Only [facility] G[facility]enterology [facility] [place] [phone] Claribel Jacobo RN Pancreatic insufficiency Social History [...] part ner or ex-partner?No4PHQ-2AnswerDate RecordedPatient Health Questionnaire-2 [id number] and Gender InformationValueDate RecordedSex Assigned at TmfzvVgfewk80/29/2024 10:42 AM EDT Legal EbwUcntgs94/13/2023 9:56 AM ESTGender KwepzrltSaijle43/29/2024 10:42 AM EDTSexual OrientationHeterosexual or Vytxfzoz37/29/2024 10:42 AM EDTdocumented as of this encounter Plan of Treatment Not on file documented as of this encounter Visit Diagnoses Diagnosis Pancreatic insufficiency Other specified disease of pancreas documented in this encounter Care Teams Team MemberRelationshipSpecialtyStart DateEnd Date Ziggy Dejesus MD [address] [place] [address] PCP - [facility]02/18/24documented as of this encounter
--- OUTSIDE RECORDS SUMMARY | 2025-07-29 17:10 | XMS_ITS | Clinical Summary ---
Author Organization [facility] Address [address] [place] [address] Care Team Providers Care Instructor Extension Work Name Role Phone Ziggy Dejesus MD Primary Care Provider [phone] Allergies Active AllergyReactionsCriticalityNoted DateCommentsBaclofenOther,Shortness of ucvfzkJjtg47/10/2017 bradypnea FenofibrateGI xboffpyzehh07/22/2009 Other reaction(s): (Louis) 08/08/2011 Other reaction(s): Intolerance elevated liver enzymes elevated liver enzymes Jmjqfnjtbwm67/14/2006 PT [employer]OLERATES CRESTOR LatexAnaphylaxis,Shortness of sgnnigKlpk29/16/5825Anmbbnhbmtie57/10/2017 Other Reaction(s): Other (See Comments), thrush thrush PenicillinsHives,BaloIjj6703/14/2006PhenazopyridineGI fueiyzftobl07/14/2006Sulfa AntibioticsHives,Shortness of vjdyqdIhjn94/14/2006 Other Reaction(s): Other (See Comments) Sulfamethoxazole-DwqegyyhfmixXkeujGtfmbe64/19/2484WrwbvcfisfAlbjLjt11/04/2023 Hcfzhmprlrxg48/01/2023 Other reaction(s): Hives Medications MedicationSigDispense QuantityRefillsLast FilledStart [...] Problems No known active problems Encounters DateTypeDepartmentCare VeoeRvxswvdcpoh36/23/2025 10:15 AM EDTOffice Visit [facility] [address] [place] [phone] Jr. Torsten Sinha, DO Tendonitis of wrist, right; Right wrist pain06/23/2025amboo flowsheet [facility] [address] [place] [address] Jr. Torsten Sinha, DO 06/23/20250224Unsnte53/16/2025 9:15 AM EDTAncillary Procedure [facility] [address] [place] [address] Chronic pain of right wrist06/16/20254731Ucmllb29/15/1312Unoemc08/02/2025 10:15 AM EDTOffice Visit [facility] [address] [place] [address] Jr. Torsten Sinha, Chronic pain of right wrist06/02/2025amb flowsheet [facility] [address] [facility] [phone] Jr. Torsten Sinha, DO 06/02/20257175Stpwqf63/27/2025 3:15 PM EDTProcedure Visit [facility] [address] [place] [address] Corbin Louie MD Numbness (Primary Dx); Paresthesias; Carpal tunnel syndrome, left05/27/20259855Goynls31/15/2025 11:55 AM EDTAncillary Procedure [facility] [address] [place] [phone] 05/15/2025 11:30 AM EDTOffice Visit [facility] [address] [place] [phone] Arik Byrd PA Right wrist pain (Primary Dx); Arm weakness; Numbness; Arm pain, right; Ulnar neuropathy of right upper efivxmaps99/15/2025amboo flowsheet [facility] [address] [facility] [place] [phone] Arik Byrd PA 05/15/2025Travelfrom Last 3 Months Family History Medical HistoryRelationNameCommentsHeart diseaseFatherHeart diseaseMother RelationNameStatusCommentsFatherAliveMotherAlive Social History Tobacco UseTypesPacks/DayYears UsedDateSmoking Tobacco: NeverSmokeless Tobacco: Never Tobacco Cessation:Counseling Given: No Alcohol UseStandard Drinks/WeekCommentsNot Currently0 (1 standard drink = 0.6 oz pure alcohol)CommentsUnknownSex and Gender InformationValueDate Recorded Sex Assigned at GmwegSfmaqd02/13/2023 3:27 PM ESTLegal RyyPxfojh04/15/2023 7:08 PM EDTGender XmevznffFaxpmo03/13/2023 3:27 PM ESTSexual OrientationNot on file Last Filed Vital Signs Vital SignReadingTime TakenCommentsBlood Selbjdyh180/7210 12:00 PM EDT Pulse--Temperature--Respiratory Rate--Oxygen Saturation--Inhaled Oxygen Concentration--Sikslp29.9 kg (174 lb)05/15/2025 11:45 AM FLDJjydux367 cm (5' 3 ) 05/15/2025 11:45 AM EDTBody Mass Index30.8205/15/2025 11:45 AM EDT Plan of Treatment Health MaintenanceDue DateLast DoneCommentsCT Ejrztdwgflhf1964Colonoscopy 1964Colorectal Cancer Gquhadtjy1964FIT-DNA1964FIT1965 FOBT06/09/19645474Vkcaxwjehjqdd1964MMR Vaccines (1 of 1 - Standard series) 1965DTaP/Tdap/Td Vaccines (1 - Tdap)06/09/19712544Oolmvzaax57/15/2024 08/15/2023, 07/24/2022, 10/28/2020, Additional history existsPap Smear02/07/2025 02/07/2022, 02/07/2022, 08/19/2019COVID-19 Vaccine ( season) /10/2020, 01/29/2021, 01/08/2021Influenza Vaccine (#1)2025 06/05/2024, 06/05/2023, 06/16/2022, Additional history existsCervical Cancer Cktcjtvqx38/10/2027HPV/Njnfcf96, 02/07/2022, 08/19/2019HIB VaccinesAged OutNo longer eligible based [...] Procedure NamePriorityDate/TimeAssociated DiagnosisCommentsMR WRIST RIGHT WO IV QCZKRJRMLpzmquq66/16/2025 9:59 AM EDT Chronic pain of right wrist XR WRIST 1-2 VIEWS NHEAMHywumir30/15/2025 11:53 AM EDT Right wrist pain from [...] Arango MD Authorizing ProviderResult TypeResult StatusJrFawad Sinha [facility] MRI PROCEDURESFinal Result * XR wrist 1 [...] degenerative changes. Authorizing ProviderResult TypeResult StatusMalilli Byrd [facility] XR PROCEDURES Final Result from Last 3 Months Insurance Care Teams Team MemberRelationshipSpecialtyStart DateEnd Ziggy Dejesus MD [address] [place] [phone] [facility]02/13/25
--- OUTSIDE RECORDS SUMMARY | 2025-07-29 17:10 | XMS_ITS | Encounter Summary ---
Author Organization [facility] Address [address] [place] [address] Care Team Providers Care [employer] Mechanic Name Role Phone Unavailable Primary Care Provider Unavailabl e Reason for Visit * ReasonOnset DateCommentsOutside Medical Records Nodzaay7207/21/2025 Encounter Details DateTypeDepartmentCare Team (Latest Contact Info)Rslgxqiqlam36/21/2025Telephone [facility] [place] [address] [place] [address] Mirian Pitts Outside Medical Records Request Social History Tobacco UseTypesPacks/DayYears UsedDateSmoking Tobacco: Never Assessed CommentsUnknownSex and Gender InformationValueDate RecordedSex Assigned at Not on fileLegal AuhYflqlk95/03/2013 2:50 PM ESTGender IdentityNot on fileSexual OrientationNot on filedocumented as of this encounter Miscellaneous Notes * Telephone Encounter - Mirian Pitts - 07/21/2025 10:23 AM EDT [facility] records requested for upcoming appt. Fax sent to LUCY KIMBLE MD Requested:[phone] Most recent PCP or GI note MOST RECENT EDG/COLON MOST RECENT GI or Hepatology Pathology MOST RECENT LABS IF AVAILABLE PLEASE INCLUDE ANY PROCEDURE REPORTS AND IMAGING INCLUDING RUQ, CTAP, EUS ,ERCP, ESOPHAGRAM, GASTRIC EMPTYING SCAN. [facility] documented in this encounter Plan of Treatment DateTypeDeparttrinity health grand rapids hospitalCare Team (Latest Contact Info)Pslzankwabp86/31/2025 3:00 PM EDTOffice Visit [facility] [place] [address] [place] [address] Ramiro Britton MD [facility] [place] [address] documented as of this encounter Visit Diagnoses Not on filedocumented in this encounter
--- OUTSIDE RECORDS SUMMARY | 2025-07-29 17:11 | XMS_ITS | CCD ---
Author Organization [email or web address] [facility], later [facility] Care Team Providers Care Manager Bank Name Role Phone UNKNOWN, PROVIDER Unavailable Unavailable ASHLEY GRIGSBY Unavailable Unavailable UNKNOWN, PROVIDER Unavailable Unavailable ASHLEY GRIGSBY Unavailable Unavailable Ashley Grigsby Primary Care Provider [phone] Ashley Grigsby Unavailable Unavailable Unavailable Ashley Grigsby MD Primary Care Provider [phone] Unavailable Unavailable Ashley Grigsby Primary Care Physician [phone] DR CELSO GARIBAY Admitting Unavailclaire GARIBAY, DR [...] Unavailable MD Ashley Grigsby Primary Care Provider [phone] MD Evert Bruno Attending Provider [phone] Evert Bruno Unavailable MD Ashley Grigsby Primary Care Provider [phone] MD Evert Bruno Attending Provider Ashley Grigsby MD Primary Care Provider [phone] GABY PHILLIPS Admitting Unavail able GABY PHILLIPS Attending Unavail able ASHLEY GRIGSBY Primary Care Unavailable ASHLEY GRIGSBY Primary Care Unavailable Ashley Grigsby MD Primary Care Provider [phone] STEPHANIE BERGER Attending Unavailable ASHLEY GRIGSBY Referring [...] Unavailable Ashley Grigsby MD Primary Care Provider [phone] Lynnette Chapman MD Emergency Provider Donis Arroyo DO Admit Provider [phone] Donis Arroyo DO Attending Provider Anita [...] Unavailable Ashley Grigsby MD Primary Care Provider [phone] Ashley Grigsby MD Primary Care Provider [phone] CHAUNCEY KIMBLE T Referring Unavailable ASHLEY GRIGSBY Primary Care Unavailable RADHA JAIMES Referring Unavailable ASHLEY GRIGSBY Primary Care Unavailable Ashley Grigsby MD Primary Care Provider [phone] NARANDI, ALI Attending Unavailable NAWRAS, ALI Referring [...] OnsetReaction(s) Facility (20 sources)Baclofen; Translations: [Baclofen TABS]Drug Wbfhozm10-83-0722Ipptj (See Comments), [place] ([place]Latex; Translations: [LATEX]Propensity to adverse reactions to drug 67-09-8943Zwsmrjougny, Shortness Of Breath, Anaphylaxis (disorder)[place], [place] (16 sources)Penicillins; Translations: [penicillins]Propensity to adverse reactions to bnma50-26-4989Ckpwz, Anaphylaxis (disorder)[place], [place] (3 sources)rosuvastatinDrug Mpacmyw46-54-8468I[facility]vd [facility]- [place], [place] (20 sources)Sulfamethoxazole / Trimethoprim; Translations: [Bactrim TABS]Drug Hdkprvq97-76-9963NfssiLjwcd Health- [place], [place] (11 sources)natural latex rubberAllergy to substance (finding)[facility]ness of breathMer[facility] 250 DO Work Phone: (11 sources)Penicillins; Translations: [Penicillins]Allergy to drug (finding) [facility] Work Phone: (20 sources)rosuvastatin; Translations: [Crestor TABS]Drug Yuyaxqo47-21-4809 Elevated liver enzymes level (finding), Other, Other (See Comments)[facility] (16 sources)Sulfonamides (Antibiotic); Translations: [Sulfa Drugs]Allergy to drug (finding)[facility] (20 sources)levoFLOXacin; Translations: [levofloxacin]Drug Gsevtxd61-66-8126 Other (See Comments), Candidiasis (disorder)[facility] [employer] Work Phone: (8 sources)Phenazopyridine; Translations: [PHENAZOPYRIDINE HCL]Drug Allergy 17-24-7623Jiubzd And VomitingAcmc Healthcare System Glenbeigh Health Work Phone: (3 sources)Simvastatin; Translations: [SIMVASTATIN]Drug Xeejbrn59-98-5708C[facility] Work Phone: (15 sources)Sulfonamides (Antibiotic)Propensity to adverse reactions to drug 47-62-0256Oxsnf (See Comments), Hives, [facility] (12 sources)Tobramycin; Translations: [tobramycin]Drug Diwivyl31-51-2497Yuzdswxd of skin (disorder), [facility] (1 source)BaclofenDrug AllergyThe [facility] (1 source)LatexDrug allergy (disorder)[facility] (5 sources)levoFLOXacin; Translations: [Levaquin]Drug AllergythrushDunlap Memorial Hospital Repository (1 source)PenicillinsDrug allergy (disorder)[facility] (1 source)rosuvastatinDrug AllergyThe [facility] (1 source)Sulfonamides (Antibiotic)Drug allergy (disorder)[facility] (11 sources)rosuvastatin; Translations: [ROSUVASTATIN]Drug Argwdge43-62-9425 [facility]Mar[facility] (5 sources)Sulfamethoxazole; Translations: [sulfamethoxazole]Drug Allergy 20-74-6077Ccabf, Hives, ([place]) 08/08/2011[facility] (20 sources)Trimethoprim; Translations: [trimethoprim]Drug Watzseq49-28-4780 Hives, Hives, ([place]) 08/08/2011[facility] (6 sources)Fenofibrate; Translations: [FENOFIBRATE]Drug Hrdhdlp32-14-7101([place]) 08/08/2011[facility] [employer] (3 sources)PenicillinDrug Allergy([place]) 08/08/2011[facility] [employer] Other (9 sources)Substance with sulfonamide structure and antibacterial mechanism of action (substance)Drug pnyfdin15-29-4088Ohyyeccff of breath, HivesNort [employer] Other (7 sources)PenicillinsPropensity to adverse reactions to fsbu12-15-2625Lrfis, RashBON DIGNITY HEALTH EAST VALLEY REHABILITATION HOSPITALSafeLogic (14 sources)TobramycinDrug Uuwxjld25-85-7545EzcyTFB [facility] [employer] (7 sources)Fenofibrate; Translations: [FENOFIBRATE MICRONIZED]Drug Allergy 78-12-8697GlmDoaigg Repository (7 sources)Sulfonamides (Antibiotic); Translations: [SULFA (SULFONAMIDE ANTIBIOTICS)]Propensity to adverse reactions to drug (disorder)04-65-5373Cnfiyyu ReactionProMedica Repository (1 source)BaclofenDrug Bdjbrcu84-68-9808LqlzsclajMarion Hospital Repository (1 source)FenofibrateDrug Pacjvpf02-16-3385OnovhfocwMarion Hospital Repository (1 source)LatexDrug allergy (disorder)59-63-0077TbakwnemgMarion Hospital Repository (1 source)levoFLOXacinDrug Vuxhwhw04-84-7185KkeehlqspMarion Hospital Repository (1 source)PenicillinsDrug allergy (disorder)32-02-3804QuzgtpurpMarion Hospital Repository (13 sources)BaclofenDrug Hotrztq80-02-9781Oggcr, Shortness of breathNOMS Healthcare (13 sources)FenofibrateDrug Tecjskl13-62-2997DB intoleranceNOMS Healthcare (14 sources)fluvastatin; Translations: [FLUVASTATIN]Drug Vrthacx20-38-0583LIWI Healthcare (13 sources)LatexAllergy to vfanypglr11-71-5359Jpqjmmgwggy, Shortness of breath [facility] (13 sources)PenicillinsDrug Akpdhjcsnhm11-54-0731Yuljx, RashNOMS Healthcare (14 sources)Phenazopyridine; Translations: [PHENAZOPYRIDINE]Drug Allergy 37-89-2788NO intoleranceNOMS Healthcare (1 source)natural latex rubber; Translations: [LATEX, NATURAL RUBBER]Propensity to adverse reactions to drug (disorder)14-01-2407OnnydnjonrWilson Health Repository Medications Current Medications MedicationDrug Class(es)DatesSig (Normalized)Sig (Original)amLODIPine 2.5 mg oral tablet (1 source)Dihydropyridine Calcium Channel Blockertake 1 tablet by mouth once dailyamLODIPine (Norvasc) 2.5 mg tablet Take 1 tablet (2.5 mg) by mouth once daily. 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 90 tablet 3 05/14/2024 08/13/2024 Discontinued (Therapy completed)take 1 tablet by mouth at bedtimeLipitor 40 MG 1 tablet Orally at hs for 30 day(s) ActiveBariatric Multivitamins with 45 mg Iron (4 sources)Start: 69-53-2389Fnmtqffjj Multivitamins with 45 mg Iron Oral, Daily, [...] lactate 0.028 meq/ml injectable solution (1 source)Start: 60-52-4886tkfetzud ringers IV soln infusioncholecalciferol 0.125 mg oral capsule (3 sources)Vitamin Dtake 2 capsules by mouth four times weeklycholecalciferol, vitamin D3, (VITAMIN D3) 5,000 units capsule Take 10,000 Units by mouth 4 (four) times a week. Activecitalopram 40 mg oral tablet (20 sources)Serotonin Reuptake InhibitorStart: 83-81-2248hkss 1 tablet by mouth once dailycitalopram (CeleXA) 40 mg tablet Take 1 tablet (40 mg) by mouth once daily. 08/03/2024 ActiveStart: 75-39-5876avqh 4 tablets by mouth once daily Citalopram 10 mg tablet Active 40 MG PO Daily November 01, 2022 12:00amStart: 00-03-1347fwak 10 mg by mouth once dailyCitalopram Active 10 MG PO Daily November 01, 2022 1:00am End: 42-23-2180ywxwedvazw (CeleXA) 20 MG tablet Take 20 mg by mouth Activetake 2 tablets by mouth once dailycitalopram (CELEXA) 10 MG tablet Take 2 tablets by mouth daily 0 Activeclopidogrel 75 mg oral tablet (11 sources)P2Y12 Platelet InhibitorStart: 09-05-2024 End: 20-93-5311wjmx 1 tablet by mouth once dailyclopidogrel (Plavix) 75 mg tablet Indications: 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 90 tablet 3 09/05/2024 09/05/2025 Activediclofenac sodium 0.03 mg/mg topical gel (16 sources)Nonsteroidal Anti-inflammatory DrugStart: 90-02-1288marqplslsz sodium 3 % gel twice a day. 12/28/2020 ActiveStart: 21-49-5236Lmhvmxuibo Sodium 3 % External Gel APPLY SPARINGLY TO THE AFFECTED AREA(S) TWICE DAILY. Quantity: 0Refills: 0 Ordered: 28-Dec-2020 DO Start : 28-Dec-2020 Activedocusate sodium 100 mg oral capsule (17 sources)take 1 capsule by mouth twice dailydocusate sodium (Colace) 100 mg capsule Take 1 capsule (100 mg) by mouth 2 times a day. Activeergocalciferol 1.25 mg oral capsule (3 sources)Provitamin D2 CompoundStart: 47-47-2177xvqt 1 capsule by mouth two times weeklyVitamin D (Ergocalciferol) 41305 UNIT 1 capsule Orally TWICE a Week for 90 day(s) May, Activeestradiol 0.1 mg/ml vaginal cream (5 sources)EstrogenStart: 14-23-4050Ljsnvtbhq 0.01 % (0.1 mg/gram) cream Active 1 APPLICATOR VAGINAL Four times daily August 19, 2024 12:00amStart: 60-40-1927lovemrqrz (Estrace) 0.01 % (0.1 mg/gram) vaginal cream Insert into the vagina once daily. 07/23/2024 ActiveStart: 58-80-3850Jhvwnff 0.1 mg/g Cream See Instructions, 42.5 gm, Refill(s) 6, apply a pea-sized amount vaginally and around the urethra nightly x 3 weeks, then 3x per week thereafter, [facility] #[id number], 160, cm, 04/10/24 15:13:00 EDT, Height/Length Dosing, 74, kg, 04/10/24 15:13:00 EDT, Weight Dosing Start Date: 04/10/24 Status: Ordered fluticasone propionate 0.05 mg/actuat metered dose nasal spray (20 sources)CorticosteroidStart: 01-17-2024 End: 60-58-4195elpk 2 spray(s) nasal route in the morningfluticasone propionate (FLONASE) 50 mcg/actuation nasal spray Administer 2 sprays into each nostrilin the morning. 16 g 11 02/14/2024 ActiveStart: 22-59-5412Wyuhdqojdmz Propionate 50 mcg/actuation spray,suspension Active 1 SPRAY INTRANASAL Daily November 01, 2022 12:00amStart: 63-67-0802kgaa 1 spray(s) nasal route twice dailyfluticasone (Flonase) 50 mcg/actuation nasal spray Administer 1 spray into affected nostril(s) 2 times a day. 11/26/2020 ActiveStart: 04-04-3508rpxi 1 spray(s) nasal route twice dailyFluticasone Propionate 50 MCG/ACT Nasal Suspension USE 1 SPRAY IN EACH NOSTRIL TWICE DAILY. Quantity: 0 Refills: 0 Ordered: 26-Nov-2020 DO Start : 26-Nov-2020 ActiveStart: 66-20-9395dikbfnnqqii 0.05 mg/inh Nasal [place] Refill(s) 0 Start Date: 04/30/20 Status: OrderedStart: 10-24-2017 End: 34-75-0665idqy 2 spray(s) nasal route once dailyfluticasone (FLONASE) 50 mcg/actuation nasal spray Indications: Chronic pansinusitis Administer 2 sprays into each nostril daily. 16 g 10/24/2017 02/29/2024 Discontinued (Duplicate Listing)fluticasone 0.05 mg/inh Nasal [place] (3 sources)Start: 06-76-9972imfegujcyec 0.05 mg/inh Nasal [place] Refill(s) 0 Start Date: 04/30/20 Status: Orderedfurosemide 40 mg oral tablet (3 sources)Loop Diuretictake 1 tablet by mouth every twenty-four hoursLasix 40 MG 1 tablet Orally Once a day for 30 day(s) ActivehydroCHLOROthiazide 12.5 mg oral tablet (20 sources)Thiazide DiureticStart: 07-19-2023 End: 27-46-9183imfq 6.25 mg by mouth once dailyhydrochlorothiazide 12.5 mg Tab 6.25 mg = 0.5 tab(s), Oral, Daily, X 90 day(s), # 45 tab(s), Refills(s) 3, Pharmacy: [facility], 160, cm, 06/02/22 8:29:00 EDT, Height/Length Dosing, 61.2, kg, 06/02/22 8:29:00 EDT, Weight Dosing Start Date: 07/19/23 Stop Date: 07/13/24 Status:OrderedStart: 05-06-7010xxyy 6.26 mg by mouth once dailyHydrochlorothiazide 12.5 mg tablet Active 6.26 MG PO Daily November 01, 2022 12:00amStart: 61-80-6536bjhw 6.26 mg by mouth once daily Hydrochlorothiazide Active 6.26 MG PO Daily November 01, 2022 1:00amStart: 12-11-2020 End: 52-15-8139acan 0.5 tablet by mouth once dailyhydroCHLOROthiazide (HYDRODiuril) 12.5 mg tablet Take 0.5 tablets (6.25 mg) by mouth once daily. 08/13/2024 Discontinued (Discontinued by another clinician)Start: 42-59-5135vfpf 1 tablet by mouth once dailyhydrochlorothiazide 12.5 mg Tab 12.5 mg = 1 tab(s), Oral, Daily, # 90 tab(s), Refills(s) 3, Pharmacy: [facility], 160, cm, 05/27/21 8:19:00 EDT, Height/Length Dosing, 61, kg, 05/27/21 8:19:00 EDT, Weight Dosing Start Date: 10/07/21 Status: Ordered ketorolac tromethamine 10 mg oral tablet (1 source)Nonsteroidal Anti-inflammatory Drug, Cyclooxygenase InhibitorStart: 06-18-2023 End: 41-26-4489zjjw 1 tablet by mouth every six hours [...] hydrochloride 500 mg oral tablet (3 sources)BiguanideStart: 26-42-8689rwjw 1 tablet by mouth twice daily Glucophage XR 500 MG 1 tablet Orally twice a days for 90 days Nov, Active2 ml metoclopramide 5 mg/ml prefilled syringe (1 source)Dopamine-2 Receptor AntagonistStart: 06-18-2023 End: 79-02-472647 mg, IntraVENous, ONCE PRN, 1 dose, Starting on Sun06/18/23 at 1449, Until Sun06/19/23 at 1449, Nausea Secondary antiemetic therapy. PACU only 24 hr mirabegron 50 mg extended release oral tablet (5 sources)beta3-Adrenergic AgonistStart: 08-05-2024 End: 09-57-9057iwcx 1 tablet by mouth once dailymirabegron (Myrbetriq) 50 mg tablet extended release 24 hr 24 hr tablet Take 1 tablet (50 mg) by mouth once daily. 08/05/2024 ActiveStart: 04-10-2024 End: 96-96-7271umgy 1 tablet by mouth once dailymirabegron 25 mg oral tablet, extended release 25 mg = 1 tab(s), Oral, Daily, do not fill both mirabegron AND vibegron. only fill whichever has lower co-pay., X 30 day(s), # 30 tab(s), Refills(s) 11,Pharmacy: [id number], 160, cm, 04/10/24 15:13:00 EDT, Height/Length Dosing, 74, kg, 04/10/24 15:13:00 EDT, Weight Dosing Start Date: 04/10/24 Stop Date: 04/05/25 Status: Orderedmometasone furoate 1 mg/ml topical cream (15 sources)CorticosteroidStart: 74-34-5563Davwoewbfv 0.1 % cream Active 1 APPLIC TOPICAL Daily August 19, 2024 12:00amStart: 22-56-5831gzdoisflzd (Elocon) 0.1 % cream twice a day. 12/25/2020 ActiveStart: 14-06-4141Dwnkfefqjp Furoate 0.1 % External Cream APPLY SPARINGLY TO AFFECTED AREAS TWICE DAILY.(AM AND PM). Quantity: 0 Refills: 0 Ordered: 25-Dec-2020 DO Start : 25-Dec-2020 Activemontelukast 10 mg oral tablet (3 sources)Leukotriene Receptor Antagonisttake 1 tablet by mouth every twenty- four hoursSingulair 10 MG 1 tablet in the evening Orally Once a day for 30 day(s) ActiveMulti Vitamin+ (4 sources)Start: 83-84-3531Xhilh Vitamin+ Refill(s) 0 Start Date: 10/27/19 Status: OrderedMultiple Vitamin (MVI, BARIATRIC ADVANTAGE VITABAND, CHEW TAB) (1 source)take 1 tablet by mouth once dailyMultiple Vitamin (MVI, BARIATRIC ADVANTAGE VITABAND, CHEW TAB) Take 1 tablet by mouth daily 0 ActiveMultiple Vitamins-Minerals (PRESERVISION AREDS 2 PO) (1 source)Multiple Vitamins-Minerals (PRESERVISION AREDS 2 PO) Take by mouth 0 Pkfhexhjjmzgvp-kbqy-UF-calcium &mins (THERAGRAN-M) 9 mg iron-400 mcg tablet (3 sources)rcakklfa-ftay-WJ-calcium &mins (THERAGRAN-M) 9 mg iron-400 mcg tablet Take 1 tablet by mouth inthe morning. Activemultivit-min/ferrous fumarate (MULTI VITAMIN ORAL) (3 sources)take 1 tablet by mouth twice dailymultivit-min/ferrous fumarate (MULTI VITAMIN ORAL) Take 1 tablet by mouth 2 times a day. Activetake 1 tablet by mouth twice dailymultivit-min/ferrous fumarate (MULTI VITAMIN ORAL) Take 1 tablet by mouth 2 times a day. 0 DitwadTdzldqikyoda-Flk-Vljb-Fa-Vit K (Bariatric Multivitamins) 45 mg iron- 800 mcg-120 mcg Capsule (4 sources)Start: 04-19-1639vvpj 1 capsule by mouth twice daily Vvbqeunipfki-Bta-Koyn-Fa-Vit K (Bariatric Multivitamins) 45 mg iron- 800 mcg-120 mcg Capsule Active1 CAP PO Twice daily November 01, 2022 1:00amStart: 96-44-0588wxxn 1 capsule by mouth twice ljardHycwecaxxjer-Gyf-Nffw-Fa-Vit K (Bariatric Multivitamins) 45 mg iron- 800 mcg-120 mcg Capsule Active1 CAP PO Twice daily November 01, 2022 12:00amMultivitamins (3 sources)Multivitamins Orally daily ActiveNIFEdipine 60 mg oral tablet (3 sources)Dihydropyridine Calcium Channel Blockertake 1 capsule by mouth once dailyProcardia 60 mg 1 capsule Orally daily for 30 day(s) Activenitroglycerin 0.4 mg sublingual tablet (18 sources)Nitrate VasodilatorStart: 12-25-2020 End: 87-60-6055wmsmkpbohbuft (Nitrostat) 0.4 mg SL tablet Indications: Atherosclerosis of coronary artery of quechan heart without angina pectoris, unspecified vessel or lesion type Place 1 tablet (0.4 mg) under thetongue every 5 minutes if needed for chest pain. 90 tablet 3 08/14/2023 ActiveNitrostat 0.4 MG 1 tablet under the tongue Sublingual as directed for 30 day(s) Activenystatin 100 unt/mg topical powder (17 sources)Polyene AntifungalStart: 63-23-8344yyniojlo ([facility]) 100,000 unit/gram powder apply topically to affected area twice a day if needed ActiveStart: 30-25-5494FZXSSS powder 04/19/2018 Activeomega-3 acid ethyl esters (nursing home) 1000 mg oral capsule (3 sources)take 2 capsules by mouth every twelve hoursLovaza 1 GM 2 capsules Orally Twice a day for 30 day(s) Active2 ml ondansetron 2 mg/ml injection (8 sources)Serotonin-3 Receptor AntagonistStart: 06-18-2023 End: mg, IntraVENous, ONCE PRN, 1 dose, Starting on Sun06/18/23 at 1449, Until Sun06/19/23 at 1449, Nausea Initial antiemetic therapy. PACU only Start: 34-43-5994bmdk 1 tablet by mouth every eight hours as needed for nausea ondansetron ODT (ZOFRAN ODT) 4 mg disintegrating tablet Dissolve 1 tablet (4 mg total) on tongue every 8 (eight) hours as needed for nausea for up to 10 doses. 10 tablet 10/04/2022 ActiveStart: 04-17-2018 End: 87-03-4984psqc 1 tablet by mouth every eight hours as needed for nausea and vomitingOndansetron (Zofran Odt) 8 mg tablet,disintegrating Discontinued 8 MG PO Q8H as needed for nausea and vomiting 10 5 April 16, 2018 11:00pm April 20, 2018 11:00pm April 21, 2018 11:01pmpolyethylene glycol 3350 325280 mg / potassium chloride 2970 mg / sodium bicarbonate 6740 mg / sodium chloride 5860 mg / sodium sulfate 83793 mg powder for oral solution (3 sources)Osmotic LaxativeStart: 87-07-1095amfe 236 g by mouth onceGolytely 236 GM as directed Orally the day prior to colonoscopy for 1 days Oct, Activeprasugrel 10 mg oral tablet (3 sources)P2Y12 Platelet Inhibitortake 10 mg by mouth once dailyeffient 10 mg once a day po ActivePreserVision AREDS (2 sources)Start: 56-43-3327YhiugnIepzsh AREDS Refill(s) 0 Start Date: 04/10/24 Status: Orderedpromethazine hydrochloride 25 mg oral tablet (7 sources)PhenothiazineStart: 99-02-5522uadb 1 tablet by mouth every four hours as needed for nauseaPromethazine 25 mg tablet Active 25 MG PO Q4H as needed for Nausea November 01, 2022 12:00amtake 1 tablet by mouth every twelve hours Promethazine HCl 25 MG 1 tablet as needed Orally every 12 hrs ActiveRABEprazole sodium 20 mg delayed release oral tablet (20 sources)Proton Pump InhibitorStart: 69-29-3859lwtd 1 mg by mouth once daily rabeprazole 20 mg oral enteric coated tablet mg tab(s), Oral, Daily, Refills(s) 0 Start Date: 05/27/21 Status: OrderedStart: 43-57-1666ADJUivzlymy Sodium 20 MG Oral Tablet Delayed Release Quantity: 180 Refills: 0 Ordered: 27-Dec-2020 DO Start : 27-Dec-2020 CompleteStart: 81-32-7369zcuh 1 tablet by mouth twice daily Rabeprazole 20 mg tablet,delayed release (DR/EC) Active 20 MG PO Twice daily April 16, 2018 11:00pmtake 1 tablet by mouth three times dailyAciphex EC tablet Take 1 tablet (20 mg) by mouth 3 times a day. Activesod hphtt-gvsilr-thdbqa bottle (NEILMED SINUS RINSE COMPLETE) packet with rinse device nasal solution (3 sources)Start: 43-17-6267tqdu 1 dose nasal route once dailysod kuugg-gpdacf-ajsnjc bottle (NEILMED SINUS RINSE COMPLETE) packet with rinse device nasal solution Indications: S/P nasal septoplasty Administer 1 packet into each nostril daily. 60 packet 09/13/2017 Active5 ml sodium chloride 9 mg/ml injection (9 sources)Start: 97-82-9059gzsf 1 dose intravenously twice daily5-40 mL, IntraVENous, [...] 20 mL/lumen Pre-op (day of surgery) Start: 50-49-8217dyvq 1 dose intravenously twice daily5-40 mL, IntraVENous, [...] Central Line = 20 mL/lumen PACU onlyStart: 58-11-9669kslxgu chloride flush 0.9 % injection 5-40 mLStart: 06-28-8328CcfyqHXJdet, at 5-250 mL/hr, PRN, if patient receiving [...] into rate field of order. PACU onlyStart: 43-17-2006qptu 5-40 mL intravenously once as needed5-40 mL, [...] onlyStart: .9 % sodium chloride infusion Start: 49-02-1332oiecbw chloride flush 0.9 % injection 5-40 mLtamsulosin hydrochloride 0.4 mg oral capsule (20 sources)alpha-Adrenergic BlockerStart: 10-26-2020 End: 86-36-5619cwwa 1 capsule by mouth twice dailyFlomax 0.4 mg Cap 0.4 mg = 1 cap(s), Oral, BID, X 90 day(s), # 180 cap(s), Refills(s) 3, Pharmacy: [facility], 160, cm, 05/27/21 8:19:00 EDT, Height/Length Dosing, 61, kg, 05/27/21 8:19:00 EDT, Weight Dosing Start Date: 03/14/22 Stop Date: 03/09/23 Status: OrderedStart: 08-00-5755lbxm 1 capsule by mouth once daily tamsulosin (Flomax) 0.4 mg 24 hr capsule Take 1 capsule (0.4 mg) by mouth once daily. 10/26/2020 Activetake 1 capsule by mouth every twenty-four hours in the morningtamsulosin (Flomax) 0.4 MG 24 hr capsule Take 0.4 mg by mouth in the morning. ActivetraMADol hydrochloride 50 mg oral tablet (7 sources)Opioid AgonistStart: 46-96-5938tgvk 1 tablet by mouth three times daily [...] Oral Tablet [Gemtesa] (1 source)Start: 04-10-2024 End: 86-96-3036vugv 1 tablet by mouth once dailyGemtesa 75 mg oral tablet 75 mg = 1 tab(s), Oral, Daily, X 30 day(s), # 30 tab(s), Refills(s) 11, Pharmacy: [facility] #[id number], 160, cm, 04/10/24 15:13:00 EDT, Height/Length Dosing, 74, kg, 04/10/24 15:13:00 EDT, Weight Dosing Start Date: 04/10/24 Stop Date: 04/05/25 Status: Orderedvit C,C-Gf-ypnaf-lutein-zeaxan (PRESERVISION AREDS- 2) 250-90-40-1 mg capsule (1 source)vit C,L-Vx-bbpzx-lutein-zeaxan (PRESERVISION AREDS-2) 250-90-40-1 mg capsule Take 2 tablets by mouth in the morning and at bedtime. Activevit C/E/Zn/coppr/lutein/zeaxan (PRESERVISION AREDS-2 ORAL) (3 sources)vit C/E/Zn/coppr/lutein/zeaxan (PRESERVISION AREDS-2 ORAL) Take by mouth twice a day. Activevit C/E/Zn/coppr/lutein/zeaxan (PRESERVISION AREDS-2 ORAL) Take by mouth twice a day. 0 ActiveVitamin B Complex 1,000 (3 sources)Start: 91-72-4736Phejxkv B Complex 1,000 Orally daily May, ActiveVitamin B-12 1000 MCG (2 sources)take 1 tablet by mouth once dailyVitamin B-12 1000 MCG 1 tablet Orally Once a day for 30 day(s) Activevitamin b12 1 mg oral tablet (1 source)Vitamin N76uxkf 1 tablet by mouth every twenty-four hoursVitamin B-12 1000 MCG 1 tablet Orally Once a day for 30 day(s) Activevitamins A,C,P-zzer-jnjfav (1 source)Start: 35-27-0562nfbngilt A,C,N-bbsx-picasg Active PO August 19, 2024 12:00amZyrtec Hives Relief 10 MG (3 sources)take 1 tablet by mouth once dailyZyrtec Hives Relief 10 MG 1 tablet Orally Once a day for 30 day(s) Active Completed/Discontinued Medications MedicationDrug Class(es)DatesSig (Normalized)Sig (Original)acetaminophen 325 mg oral tablet (4 sources)Start: 06-18-2023 End: 95-67-1483ggrrikozlqyth (TYLENOL) tablet 650 mgtake 2 tablets by mouth every six hours as needed for painacetaminophen (TYLENOL EXTRA STRENGTH) 500 mg tablet Take 2 tablets (1,000 mg total) by mouth every6 (six) hours as needed for pain. Activeacetaminophen 325 mg / oxyCODONE hydrochloride 5 mg oral tablet (8 sources)Opioid AgonistStart: 04-24-2018 End: 33-67-8921fwue 1 tablet by mouth every four to six hours as needed for pain Oxycodone-Acetaminophen 5-325 mg tablet Discontinued 1 TAB PO EVERY 4-6 HOURS as needed for pain 20July 2017April 27, 2018 11:00pm April 28, 2018 11:01pmStart: 59-09-6451zweo 2 tablets by mouth every four hours as needed for painOxycodone-Acetaminophen (Percocet) 5-325 mg tablet Active 2 TAB PO Q4H as needed for pain April 17, 2018ascorbic acid 226 mg / beta carotene 50749 unt / cuprous oxide 0.8 mg / dl-alpha tocopheryl unt / zinc oxide 34.8 mg oral capsule (11 sources)Vitamin Ctake 2 capsules by mouth twice dailyPreserVision AREDS Oral Capsule TAKE 2 CAPSULE Twice daily Quantity: 0 Refills: 0 Ordered: 17-Aug-2021 DO Activecarvedilol 6.25 mg oral tablet (9 sources)alpha-Adrenergic Boom, beta-Adrenergic BlockerStart: 11-03-2020 Carvedilol 6.25 MG Oral Tablet Quantity: 180 Refills: 0 Ordered: 03-Nov-2020 DO Start : 03-Nov-2020 CompleteStart: 04-17-2018 End: 82-31-5686tgkj 1 tablet by mouth twice dailyCarvedilol 25 mg tablet Discontinued 25 MG PO Twice daily April 16, 2018 11:00pm November 01, 2022 10:47amtake 1 tablet by mouth every twelve hoursCarvedilol 12.5 MG 1 tablet with food Orally Twice a day for 30 day(s) Activecephalexin 500 mg oral capsule (4 sources)Cephalosporin AntibacterialStart: 04-17-2018 End: 00-74-1707pbfi 1 capsule by mouth twice dailyCephalexin (Keflex) 500 mg capsule Discontinued 500 MG PO Twice daily 14 7 April 16, 2018 11:00pm April 22, 2018 11:00pm April 23, 2018 11:01pmcevimeline 30 mg oral capsule (20 sources)Cholinergic Receptor AgonistStart: 11-03-2020 End: 48-43-9272ncjl 1 capsule by mouth three times dailycevimeline (EVOXAC) 30 mg capsule Indications: Xerostomia Take 1 capsule (30 mg total) by mouth 3 (t hree) times a day. 270 capsule 4 02/14/2024 02/29/2024 Discontinued (Duplicate Listing)Start: 88-59-6929uyig 1 mg by mouth three times dailycevimeline See Instructions, mg Oral TID, Refills(s) 0 Start Date: 10/27/19 Status: Ordered Start: 04-17-2018 End: 39-70-2276jpkisrrwih (EVOXAC) 30 mg capsule Indications: Xerostomia TAKE 1 CAPSULE 4 TIMES DAILY 360 capsule 3 08/17/2022 01/17/2024 Discontinued (Reorder) take 25 mg by mouth three times dailyCEVIMELINE HCL PO Take 25 mg by mouth 3 times daily 0 ActivedimenhyDRINATE 50 mg oral tablet (1 source)Start: 06-18-2023 End: 05-35-8913picfqftIWZUGDE (DRAMAMINE) tablet 50 mgStart: 06-18-2023 End: 56-51-0040tmolhpxHAFHITP (DRAMAMINE) tablet 50 mgdoxycycline hyclate 100 mg oral tablet (1 source)Tetracycline-class DrugStart: 11-68-3853ramy 1 tablet by mouth twice daily, then take 1 tablet by mouth once dailyDoxycycline Hyclate 100 MG Oral Tablet take 1 tablet by mouth twice a day for 14 days then 1 tabletonce daily for 14 days Quantity: 42 Refills: 0 Ordered: 18-Oct-2020 DO Start : 18-Oct-2020 Completefamotidine 20 mg oral tablet (3 sources)Histamine-2 Receptor AntagonistStart: 10-04-2022 End: 21-05-2972khmy 1 tablet by mouth in the morning, [...] fentaNYL 0.05 mg/ml injection (2 sources)Opioid AgonistStart: 97-17-440940 mcg, IntraVENous, EVERY 5 MIN PRN, 2 [...] 100 mg oral tablet (1 source)Azole AntifungalStart: 84-47-7724zixo 1 tablet by mouth once daily Fluconazole 100 MG Oral Tablet take 1 tablet by mouth once daily Quantity: 10 Refills: 0 Ordered: 17-Nov-2020 DO Start : 17-Nov-2020 Completehydrocortisone 10 mg/ml / neomycin 3.5 mg/ml / polymyxin b 67142 unt/ml ophthalmic suspension (3 sources)Aminoglycoside Antibacterial, Polymyxin-class Antibacterial, CorticosteroidStart: 54-74-5623edqj 2 drop(s) into the eye(s) four times daily Qbufciro-Wapyrypwc-DR 3.5-14307-7 Ophthalmic Suspension instill 2 drops INTO AFFECTED EYE four times a day Quantity: 8 Refills: 0 Ordered: 14-Jun-2021 DO Start : 13-Jun-2021 ActivelevoFLOXacin 750 mg oral tablet (1 source)Quinolone AntimicrobialStart: 84-87-0820rbuk 1 tablet by mouth once dailylevoFLOXacin 750 [...] oral capsule (4 sources)Nitrofuran AntibacterialStart: 04-24-2018 End: 84-38-2176thqe 1 capsule by mouth twice daily at mealtimeNitrofurantoin Monohyd/M-Cryst (Macrobid) 100 mg capsule Discontinued 100 MG PO Twice daily April 23, 2018 11:00pm November 01, 2022 10:47am must administer with a meal/foodoxyCODONE hydrochloride 5 mg oral tablet (1 source)Opioid AgonistStart: 06-18-2023 End: 12-29-1242dhjd 1 dose by mouth once5 mg, Oral, ONCE PRN, 1 dose, Starting on Sun06/18/23 at 1449, Until Sun06/18/23 at 1505, Pain Moderate (4-6), Pain Severe (7-10) PHASE II PACU onlypredniSONE 10 mg oral tablet (1 source)Start: 79-41-9067davc 5 tablets by mouth once daily, then take 4 tablets by mouth once dailypredniSONE 10 MG Oral Tablet take 5 tablets by mouth once daily X2 DAYS, 4 tablets daily X2 DA... (REFER TO PRESCRIPTION NOTES). Quantity: 30 Refills: 0 Ordered: 18-Oct-2020 DO Start : 18-Oct-2020 Rjnpwpwp04 hr ranolazine 500 mg extended release oral tablet (7 sources)Anti-anginalStart: 04-17-2018 End: 24-21-6765lbiy 1 tablet by mouth twice dailyRanolazine 500 [...] for 30 day(s) Not-TakingVersabase Cream (1 source)Start: 49-53-3368Joccwgpvu Cream Quantity: 15 Refills: 0 Ordered: 07-Sep-2020 DO Start : 07-Sep-2020 Complete Problems Active Problems Problem ClassificationProblemDateDocumented DateEpisodic/ChronicAbdominal pain (16 sources)Abdominal pain; Translations: [Unspecified abdominal pain]Onset: 99-50-8412HwusyihjDprlc myocardial infarction (3 sources)Acute myocardial infarction; Translations: [Acute myocardial infarction, unspecified]Onset: 376327-49-4870NksweygThtxzbw tract disease (4 sources)Choledochal cyst; Translations: [Other specified diseases of biliary tract]ChronicCalculus of urinary tract (12 sources)Kidney stone; Translations: [Calculus of kidney]Onset: 06-02-2022 EpisodicCardiac and circulatory congenital anomalies (14 sources)Ventricular septal defect; Translations: [Ventricular septal defect] Onset: 878300-75-0277NudkuqnVhbiqxz dysrhythmias (14 sources)Paroxysmal supraventricular tachycardia; Translations: [Paroxysmal supraventricular tachycardia]Onset: 813192-11-7779GepwncdQllithmzlvd and hemorrhagic disorders (3 sources)Disorder of hemostatic system; Translations: [Coagulation defect, unspecified]Onset: 840950-05-0142CvbbmqgRbgnvccwxrrb of device; implant or graft (4 sources)Arteriosclerosis of coronary artery bypass graft; Translations: [Atherosclerosis of coronary arterybypass graft(s) without angina pectoris] Onset: 147422-54-0736FxhttgxAhjdiwmf atherosclerosis and other heart disease (20 sources)Coronary atherosclerosis; Translations: [Coronary atherosclerosis of quechan coronary artery]Onset: 32-82-5132KuriopqCffpscjv atherosclerosis and other heart disease (7 sources)Patient post percutaneous transluminal coronary angioplasty; Translations: [Coronary angioplasty status]Onset: 507794-20-7792Temhxvgf Diabetes mellitus without complication (3 sources)Diabetes mellitus; Translations: [Type 2 diabetes mellitus without complications]Onset: 273539-63-0418VvfqotzIusvfemi mellitus without complication (1 source)Diabetes mellitus without complicationOnset: 89-70-9110Gixjaaify of lipid metabolism (20 sources)Hyperlipidemia; Translations: [Other and unspecified hyperlipidemia] Onset: 312556-94-7016PaajfhfUwddpijugr disorders (3 sources)Gastroesophageal reflux disease; Translations: [Gastro-esophageal reflux disease without esophagitis]Onset: 600319-58-6639UzmfeokVoaplmdgi hypertension (20 sources)Benign essential hypertension; Translations: [Benign essential hypertension]Onset: 020741-02-5473ZwwhfxsUzfewwcimxaqi symptoms and ill- defined conditions (5 sources)Mixed incontinence; Translations: [Incontinence]Onset: 06-02-2022 ChronicGenitourinary symptoms and ill-defined conditions (2 sources)Genitourinary tract problem; Translations: [Other symptoms and signs involving the genitourinary system]Onset: 39-79-7159UbwilpwiRwurmhqecyns; infection of eye (except that caused by tuberculosis or sexually transmitteddisease) (3 sources)Chronic allergic conjunctivitis; Translations: [Other chronic allergic conjunctivitis]Onset: 631223-35-4727RpttblzTckooyoclu disorders (2 sources)Postmenopausal bleeding; Translations: [Postmenopausal bleeding] Onset: 852877-10-5966KzzriafRenqmpbtdal chest pain (3 sources)Atypical chest pain; Translations: [Other chest pain]Onset: 040566-30-5504UfjmxfxfYbsdo aftercare (1 source)termite helper (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; Translations: [LICENSED HOME INSPECTOR CURRENT USE OF ASPIRIN]Onset: 52-75-5101LkjjyodwOvbjz aftercare (1 source)Other chcf (current) drug therapy; Translations: [OTH LICENSED HOME INSPECTOR CURRENT DRUG THERAPY]Onset: 16-88-8813FdvubkouQkdfo and ill-defined heart disease (3 sources)Heart disease; Translations: [Heart disease, unspecified]Onset: 703664-11-6294TdijcteIjyai connective tissue disease (6 sources)Tendonitis of right wrist; Translations: [Other enthesopathies, not elsewhere classified]04-67-0542KtnuyzezIarqt connective tissue disease (4 sources)Muscle weakness of upper limb; Translations: [Other symptoms and signs involving the musculoskeletal system]73-72-6260RmggdhdtRdkgb connective tissue disease (4 sources)Pain in right arm; Translations: [Pain in right arm]05-15-2025 EpisodicOther diseases of bladder and urethra (2 sources)Detrusor overactivity; Translations: [Overactive bladder]Onset: 77-54-4199NqfijjzCqxcs diseases of bladder and urethra (2 sources)Overactive fkfgadf82-56-3591KslnpiaHupsy diseases of bladder and urethra (2 sources)Pain in gntzfqu39-88-1751PiqzeqodTgssy gastrointestinal disorders (1 source)Intestinal malabsorption, unspecified; Translations: [INTESTINAL MALABSORPTION UNS]Onset: 00-17-7312HqkavfqKneiv gastrointestinal disorders (2 sources)Bariatric surgery status; Translations: [BARIATRIC SURGERY STATUS] Onset: 70-70-3074EklewvpuOtfrh gastrointestinal disorders (3 sources)Constipation; Translations: [Constipation, unspecified]EpisodicOther gastrointestinal disorders (1 source)Constipation, unspecifiedEpisodicOther liver diseases (3 sources)Elevated liver enzymes level; Translations: [Abnormal levels of other serum enzymes]EpisodicOther liver diseases (1 source)Abnormal levels of other serum enzymesEpisodicOther nervous system disorders (4 sources)Ulnar neuropathy of right arm; Translations: [Lesion of ulnar nerve, right upper limb]10-18-1160KovwchvQzwns nervous system disorders (1 source)Carpal tunnel syndrome of left wrist; Translations: [Carpal tunnel syndrome, left upper limb]05-63-7933IfeenaeAyzdn nervous system disorders (5 sources)Numbness; Translations: [Anesthesia of skin]61-24-4107YhiqaopxEjblh nervous system disorders (1 source)Paresthesia; Translations: [Paresthesia of skin]29-19-9599Zljpjaxx Other non-traumatic joint disorders (2 sources)Pain in wrist; Translations: [Pain in right wrist]98-20-3601Pjyowhjx Other non-traumatic joint disorders (4 sources)Pain of right wrist; Translations: [Pain in right wrist]05-15-2025 EpisodicOther non-traumatic joint disorders (2 sources)Chronic pain of right upper limb; Translations: [Pain in right wrist] 90-37-1470SnizqgqwQbnxt nutritional; endocrine; and metabolic disorders (1 source)Hypervitaminosis D; Translations: [HYPERVITAMINOSIS D]Onset: 90-85-2029PxxcngpDxiut nutritional; endocrine; and metabolic disorders (2 sources)Body mass index 30+ - obesity; Translations: [Body mass index (BMI) 30.0-30.9, adult]Onset: 523094-87-1245DnfbvjiGtooj nutritional; endocrine; and metabolic disorders (2 sources)Body mass index (BMI) 30.0-30.9, adult; Translations: [Body mass index (BMI) 30.0-30.9, adult]Onset: 59-73-7601ZvmsphgCchnv nutritional; endocrine; and metabolic disorders (11 sources)Overweight in adulthood with body mass index of 25 or more but less than 30; Translations: [Overweight]EpisodicOther screening for suspected conditions (not mental disorders or infectious disease) (6 sources)Other specified abnormal findings of blood chemistry; Translations: [Patient encounter status]Onset: 11-10-3128UwcrvrjcQqyfm skin disorders (1 source)Epidermoid cyst; Translations: [Epidermal cyst]68-97-4807UaslzzbiKujpc skin disorders (1 source)Epidermal cyst; Translations: [Epidermal cyst]Onset: 06-18-2023 EpisodicOther upper respiratory disease (1 source)Allergic rhinitis, unspecified; Translations: [Allergic rhinitis, unspecified]Onset: 22-73-4094CzmpmugYbzjt upper respiratory disease (1 source)Allergic rhinitis; Translations: [Allergic rhinitis, unspecified] 48-26-0730QmilximQysnpjdd codes; unclassified (4 sources)Other specified health status; Translations: [Other drug allergy] Onset: 128573-76-8038EhcysrzvUchzpomfjwnq (1 source)Presence of aortocoronary bypass graft / Z95.1(ICD-9)Onset: 08-29-2017 Unclassified (1 source)Athscl heart disease of quechan coronary artery w/o ang pctrs / I25.10(ICD-9)Onset: 42-07-9612Wnczcdckbnso (1 source)Pure hypercholesterolemia, unspecified / E78.00(ICD-9)Onset: 10-88-8714Hmbddenmutca (2 sources)Encounter for preprocedural cardiovascular examination / Z01.810(ICD-9)Onset: 32-99-0118Wkexbgfeltvg (1 source)Old myocardial infarction / I25.2(ICD-9)Onset: 01-14-6315Nuihunjdnmro (1 source)Coronary angioplasty status / Z98.61(ICD-9)Onset: 08-29-2017 Unclassified (1 source)Cardiomyopathy, unspecified / I42.9(ICD-9)Onset: 08-29-2017 Unclassified (1 source)Family history of diseases of the ms sys and connective tiss / Z82.69(ICD-9)Onset: 82-94-7933Kgibdhzkkimj (1 source)Family hx of ischem heart dis and oth dis of the circ sys / Z82.49(ICD-9)Onset: 61-02-6843Zacknybauvoa (1 source)Patient encounter status; Translations: [Well female exam with routine gynecological exam]Unclassified (4 sources)Drug therapy sbbuqns86-65-8332Josygzdseqdj (4 sources)Finding of sensation of -22-2261Rixpcvmvygyz (1 source)CONTACT W/AND (SUSP) EXPOS COVID-19; Translations: [CONTACT W/AND (SUSP) EXPOS COVID-19]Onset: 33-73-0946Hzpswizgojht (1 source)Med RefillOnset: 63-11-4682Hsyebqcffqtl (2 sources)Chronic pain of right upper vbkl26-21-3135 Past or Other Problems Problem ClassificationProblemDateDocumented DateEpisodic/ChronicCancer of colon (2 sources)Personal history of other malignant neoplasm of large intestine; Translations: [Personal history ofother malignant neoplasm of large intestine] Onset: 20-46-7394HfjawwrtIizuayjb of mouth; excluding dental (6 sources)Disturbances of salivary secretion; Translations: [Xerostomia]Onset: 895245-98-7981AtpacgtcSefa disorders (3 sources)Mood disordersOnset: 003991-44-4108Dzcbe aftercare (2 sources)Encounter for follow-up examination after completed treatment for malignant neoplasm; Translations:[Encounter for follow-up examination after completed treatment for malignant neoplasm]Onset: 43-03-0621IliotczuEqqzn connective tissue disease (1 source)Pain in left arm; Translations: [Pain in left arm]Onset: 10-11-2024 EpisodicOther connective tissue disease (1 source)Pain in right arm; Translations: [Pain in right arm]Onset: 10-11-2024 EpisodicOther diseases of kidney and ureters (3 sources)Kidney disease; Translations: [Disorder of kidney and ureter, unspecified]Onset: 192492-26-2119PynrynhaNbypg upper respiratory disease (1 source)Other specified disorders of nose and nasal sinuses; Translations: [Other specified disorders of nose and nasal sinuses]Onset: 07-25-6750Jppyhmxh Other upper respiratory disease (4 sources)Nasal mucosa dry; Translations: [Other specified disorders of nose and nasal sinuses]Onset: 814933-44-6522QwoutgrtMcmbdsprgm disorders (not diabetes) (15 sources)Idiopathic acute pancreatitis without necrosis or infection; Translations: [Acute pancreatitis without necrosis or infection, unspecified] Onset: 82-10-0556DcdvxgiaPzxknispqnes (1 source)Encounter for preprocedural cardiovascular examination; Translations: [...] schedule. pt is scheduledPremier Health Miami [facility] HospitalMR WRIST RIGHT WO IV CONTRASTon [id number] WRIST RIGHT WO IV CONTRASTEXAM/TECHNIQUE: MR WRIST [...] Order Comment: MRI RT wrist w/o at [facility]. Orbits if needed. Please contact patient to scheduleOrders Onlyon [phone] [id number] AngelikaJose Alberto 1965 Date Provider Department Center 05/19/2025 27841-CT-VNSEKWANALISA YOO [facility] Family History Problem Relation Age of Onset Hyperlipidemia Mother Hyperlipidemia Father Hyperlipidemia Brother Heart attack Brother Family Status - Relation Status Age at Mother Father Brother BrotherNormalUniverspromedica flower hospital of [facility] – ShorelineTelephoneon 05-19-2025 [id number] AngelikaJose Alberto 1965 Provider Department Center 05/19/2025 [facility] Problem Relation Age of Onset Hyperlipidemia Mother Hyperlipidemia Father Hyperlipidemia Brother Heart attack Brother Family Status - Relation Status Age at Mother Father Brother BrotherNoLevine Children's Hospital of [facility] – ShorelineXR Wrist - right 2 Views on 64-58-5919Fqxzd result: AP and Lateral Right Wrist: Bone Structure: No acute fracture or dislocation Joint Spaces: The carpal joint spaces are well preserved, minimal joint space narrowing mostly radial with subchondral sclerosis. Scapho-lunate interval within normal limit. Soft tissue: No swelling or calcification Impression: No acute bony process Right Wrist with minimal degenerative changes.[facility]Rad[facility] Study observation (narrative) [address] [phone] spoke with Betsy the vice president pharmacy and clarify some information and that is what was needed so hopefully soon be able to get soon.NormalUnFirelands Regional Medical Center South CampusTephoneon [id number] AngelikaJose Alberto 1965 Date Provider Department Center 05/14/2025 60785-WX-EVTQMNANALISA YOO [facility] Family History Problem Relation Age of Onset Hyperlipidemia Mother Hyperlipidemia Father Hyperlipidemia Brother Heart attack Brother Family Status - Relation Status Age at Mother Father Brother BrotherNormalUniSouthview Medical [id number] AngelikaJose Alberto 1965 Date Provider Department Center 05/14/2025 [facility] [place] Family History Problem Relation Age of Onset Hyperlipidemia Mother Hyperlipidemia Father Hyperlipidemia Brother Heart attack Brother Family Status - Relation Status Age at Mother Father Brother BrotherNormalUniversity [facility]ike [facility]29on Addended by: ANALISA WATSON on: 05/14/2025 03:06 PM Modules accepted: OrdersNormalUniversUniversity Hospitals Conneaut Medical Center29Addended by: ANALISA WATSON on: 05/12/2025 05:18 PM Modules accepted: OrdersSainte Genevieve County Memorial HospitalalUniSouthview Medical CenterFollow-Upon [id number] Jose Alberto Saleem 1965 Date Provider Department [place] 05/08/2025 CHAUNCEY CESPEDES [facility] Family History Problem Relation Age of Onset Hyperlipidemia Mother Hyperlipidemia Father Hyperlipidemia Brother Heart attack Brother Family Status - Relation Status Age at Mother Father Brother Brother Level of Service:53578 [place] OFFICE/OUTPATIENT ESTABLISHED MOD MDM 30 MIN () Reason for Visit and Comments: Follow-up [506847][facility] Medical CenterI called the patient and discussed the MRI/ [...] and Dr. Kimble is aware of the plan.[facility] CenterTelephoneon [id number] Jose Alberto Saleem 1965 Date Provider Department [place] 03/25/2025 SANDRA BURRIS [facility] Family History Problem Relation Age of Onset Hyperlipidemia Mother Hyperlipidemia Father Hyperlipidemia Brother Heart attack Brother Family Status - Relation Status Age at Mother Father Brother BrotherNormalUniSouthview Medical Center3603/25/25@1020 Left patient a message that [...] or should she follow up in the clinic.[facility] CenterTephone [id number] Jose Alberto Saleem 1965 Date Provider Department Center 03/20/2025 G[facility]ELA [facility] Family History Problem Relation Age of Onset Hyperlipidemia Mother Hyperlipidemia Father Hyperlipidemia Brother Heart attack Brother Family Status - Relation Status Age at Mother Father Brother BrotherNormalUni[address] [phone] and discussed with jay pt the HIDA and MRCP in details. ----- Message from Gisela sent at 02/11/2025 3:15 PM EDT ----- Patient calling for results and follow up plan. Office visit with you and Dr. Kimble 01/09/25NoPauletteversUniversity Hospitals Conneaut Medical Center36----- Message from Gisela sent at 02/11/2025 3:15 PM EDT ----- Patient calling for results and follow up plan. Office visit with you and Dr. Kimble [facility] [id number] Jose Alberto Saleem 1965 Date Provider Department Center 02/18/2025 SANDRA BURRIS [facility] Pavi Family History Problem Relation Age of Onset Hyperlipidemia Mother Hyperlipidemia Father Hyperlipidemia Brother Heart attack Brother Family Status - Relation Status Age at Mother Father Brother BrotherNormalUniSouthview Medical Center36on [phone] called me to get results of HIDA scan and then what to do as follow up. I do see the HIDA scan results from 01/30/25 @ [facility] and they are normal will forward to Dr. Sharma on of our [facility] to see what further he would like to do.NormalUnFirelands Regional Medical Center South CampusTelephoneon [phone] [id number] Jose Alberto Saleem 1965 F Date Provider Department Center 02/11/2025 GISELA OMER [facility] Family History Problem Relation Age of Onset Hyperlipidemia Mother Hyperlipidemia Father Hyperlipidemia Brother Heart attack Brother Family Status - Relation Status Age at Mother Father Brother BrotherNormSt. Francis HospitalNM HIDA W EJECTION FRACTIONon 44-08-2675UN HIDA W EJECTION FRACTIONCLINICAL INFORMATION: Sphincter of [...] signed: Viet Prado M.D.. Not FrankdtJulio Interpretation CodeUnFirelands Regional Medical Center South Campus Elastase.pancreatic (Stl) [Mass/Mass]on 58-53-9261Knuokkqbjd Elastase, F174 mcg/gLow>200 (Normal)[facility] Cross HospitalComment on above:Result Comment: NOTE Interpretation: Borderline (100-200 mcg/g); Consistent with slight to moderate pancreatic insufficiency Test Performed by: [facility] [address] [place] [address] Forensic Psychiatrist: Andra Flores Ph.D.; CLIA# [id number] By: #### [id number]- [id number] #### [facility] ([id number]) [address] [place] [address] FLOOR [place], [place] [address]hy [phone] by: CHAUNCEY KIMBLE on: 01/10/2025 08:32 AM Modules accepted: Level of ServiceNormalUniversUniversity Hospitals Conneaut Medical Center Follow-Upon [id number] Jose Alberto Saleem 1965 Date Provider Department Center 01/09/2025 375-CHAUNCEY KIMBLE [facility] Family History Problem Relation Age of Onset Hyperlipidemia Mother Hyperlipidemia Father Hyperlipidemia Brother Heart attack Brother Family Status - Relation Status Age at Mother Father Brother Brother Level of Service:90454 [place] OFFICE/OUTPATIENT ESTABLISHED MOD MDM 30 MIN () Reason for Visit and Comments: Follow-up [066668] - MRI follow up and seen at [facility] and in hospital for 1 day. Will get records. Enzo helped tremendously this time and she came home with it, She just complains of fatigue. PCP Ordered sleep studyNormalUniversUniversity Hospitals Conneaut Medical Center36on /01/23@1548 Returned a phone call to patient. She had wanted to follow up with Dr. Chauncey Kimble to let him know she is currently in the ER at [facility] dx with pancreatitis. She had an MRCP on 12/31/24 and if any other lab work needs done to call the Hospital.NormalUnFirelands Regional Medical Center South CampusTelephoneon [id number] Jose Alberto Saleem 1965 Provider Department Center 01/02/2025 GISELA OMER [facility] BRIDGETT Family History Problem Relation Age of Onset Hyperlipidemia Mother Hyperlipidemia Father Hyperlipidemia Brother Heart attack Brother Family Status - Relation Status Age at Mother Father Brother BrotherNormalUniversUniversity Hospitals Conneaut Medical CenterMR ABDOMEN W AND WO CONTRAST MRCPon 90-45-4201PM ABDOMEN W AND WO CONTRAST MRCPMRI ABDOMEN [...] signed: Figueroa Landeros MD. Not VldtdInvalid Interpretation CodeUnFirelands Regional Medical Center South CampusFollow-Up on 41-17-3537Xrtigq-[id number] Jose Alberto Saleem 1965 F Date Provider Department Center 12/12/2024 CHAUNCEY CESPEDES [facility] GI [facility] Family History Problem Relation Age of Onset Hyperlipidemia Mother Hyperlipidemia Father Hyperlipidemia Brother Heart attack Brother Family Status - Relation Status Age at Mother Father Brother Brother Level of Service:84039 [place] OFFICE/OUTPATIENT NEW MODERATE MDM 45 MINUTES (GC) Reason for Visit and Comments: Pancreatitis [155050] - Pain when she stresses or when she eats. She has trouble with losing weight as she always feels bloated and gassy.Normal [facility] - right 2 Viewson 67-57-0403Vwyisfm Result: AP and Lateral Right Wrist: Bone Structure: No acute fracture or dislocation Joint Spaces: The carpal joint spaces are well preserved, mild joint space narrowing and remodeling with subchondral sclerosis distal radius favoring arthritis. , Scapho-lunate interval within normal limit. Soft tissue: No swelling or calcification Impression: No acute bony process Right WristNOAscension [facility] Radiology Study observation (narrative)NOMS HealthcareXR FOREARM RT 2 VWSon 37-00-9995RZ FOREARM RT 2 VWSXR FOREARM RT 2 VWS CLINICAL INFORMATION: Right arm pain TECHNIQUE: XR FOREARM RT 2 VWS 2 views right forearm are obtained. There is no acute osseous, articular, or soft tissue abnormality. IMPRESSION: Negative exam. Finalized by Afshin Barrett MD on 10/11/2024 1:59 PMNormalProMedica Menlo Park Va HospitalECG 12 lead ECGon 72-37-2119NEB 12 lead ECGOHIOHEALTH DOCTORS [facility] Main [place] [address] [place] [address] Electrocardiograph Report Signed Patient: Jose Alberto Saleem MR#: [id number] 571 : 1965 Acct:[id number] Age/Sex: 59 / F ADM Date: 08/20/24 Loc: Room: [address] [place] [address] Type: DIS IN Attending Dr: Kaiser Quijano [...] abnormality Abnormal ECG Confirmed by Bella Stein ([id number]) on 08/22/2024 11:33:07 PM Referred By: Bella Stein Electronically Signed By: Bella Stein Transcribed By: MUS Signed By Bella Stein MD 4 2333[facility] Physician GroupTroponin I High Sensitivityon 87-42-5915Ewdvddog I High Woxntejiaxd4856.6 pg/mLOff scale high0.0-15.0The [facility] Physician GroupComment on above:Result Comment: Critical Result : Called to and read back by: ROB MCDONALD at: 08/22/2024 06:38:37 by:RAMONA PERFORMED BY: [facility] [address] [address] PATHOLOGIST DISTRICT AGENT JANA OLMEDO M.D.Performed By: #### HS TROP ####[facility] [address] [place] [address] USABlood Urea Nitrogenon 50-13-1949Qrdm nitrogen [Mass/Vol]14 mg/dLNormal7-25The [facility] Physician GroupComment on above:Performed By: #### CREAT, BUN, PP, CBC, LYTES ####[place] [address] [place] [address] [facility] Coagulation Profileon 20-90-4712bVDZ Coag (Bld) [Time]35.9 wJspqel80.1-36.5The [facility] Physician GroupComment on above:Result Comment: A hematocrit value greater than 55% may lead to inaccurate results in coagulation testing. Patients having hematocrit values >55% require a special collection tube for coagulation studies. Please contact the laboratory at [phone] for redraw instructions. PERFORMED BY: [facility] [address] [place] [address] PATHOLOGIST DISTRICT AGENT JANA OLMEDO M.D.Performed By: #### CREAT, BUN, PP, CBC, LYTES ####[address] [place] [address] [facility] HOSPITALINR Coag (PPP) [Relative time]1.1 {INR}NormalThe [facility] Hospital Of HarmarvilleComment on above:Result Comment: INR Therapeutic Range A) [...] By: #### CREAT, BUN, PP, CBC, LYTES ####[address] [place] [address] USAPT Coag (PPP) [Time]12.2 sNormal9.0-12.9The [facility] Physician [facility] General HospitalComment on above:Result Comment: A hematocrit value greater than 55% may lead to inaccurate results in coagulation testing. Patients having hematocrit values >55% require a special collection tube for coagulation studies. Please contact the laboratory at [phone] for redraw instructions.Performed By: #### CREAT, BUN, PP, CBC, LYTES ####[address] StreetComplete Blood Count Auto Diffon 15-40-0319Aykeqnswf (Bld) [#/Vol]0.0 10*3/uLNormal0.0-0.2The [facility] Physician GroupComment on above:Result Comment: PERFORMED BY: [facility] [address] HOSPITALAdelaida [place] [address] PATHOLOGIST DISTRICT AGENT JANA OLMEDO M.D.Performed By: #### CREAT, BUN, PP, CBC, LYTES ####[address] Basophils/100 WBC (Bld)0.3 %Normal.The [facility] Physician GroupComment on above:Performed By: #### CREAT, BUN, PP, CBC, LYTES ####[place] [address] USAEosinophils (Bld) [#/Vol]0.2 10*3/uLNormal0.0-0.45The [facility] Physician GroupComment on above:Performed By: #### CREAT, BUN, PP, CBC, LYTES ####[place] [address] USAEosinophils/100 WBC (Bld)3.9 %Normal.The [facility] Physician GroupComment on above:Performed By: #### CREAT, BUN, PP, CBC, LYTES ####[address] Erythrocyte distribution width (RBC) [Ratio]12.7 %Nkhmwy93.9-15.3The [facility] Physician GroupComment on above:Performed By: #### CREAT, BUN, PP, CBC, LYTES ####[address] Hematocrit (Bld) [Volume fraction]42.5 %Buffcc65.0-46.4The [facility] Physician GroupComment on above:Performed By: #### CREAT, BUN, PP, CBC, LYTES ####[address] Hemoglobin (Bld) [Mass/Vol]14.6 g/pZKtroig70.8-15.4The [facility]ician Group Comment on above:Performed By: #### CREAT, BUN, PP, CBC, LYTES ####[place] [address] USALymphocytes (Bld) [#/Vol]1.7 10*3/uLNormal1.00-4.8The [facility] Physician GroupComment on above: Performed By: #### CREAT, BUN, PP, CBC, LYTES ####[place] [address] USALymphocytes/100 WBC (Bld)35.0 %Normal. The [facility] Physician GroupComment on above:Performed By: #### CREAT, BUN, PP, CBC, LYTES ####[address] StreetH (RBC) [Entitic mass]30.8 llEyskxl97.7-34.3The [facility] Physician GroupComment on above:Performed By: #### CREAT, BUN, PP, CBC, LYTES ####[address]V (RBC) [Entitic vol]89.8 rYVeqshl50-920Ewl [facility] Physician GroupComment on above:Performed By: #### CREAT, BUN, PP, CBC, LYTES ####[place] [address] USAMean Corpuscular HGB Conc34.3 g/uIXxszwr39.0-35.0The [facility] Physician GroupComment on above:Performed By: #### CREAT, BUN, PP, CBC, LYTES ####[place] [address] USAMonocytes (Bld) [#/Vol]0.5 10*3/uLNormal0.0-0.8The [facility] Physician GroupComment on above:Performed By: #### CREAT, BUN, PP, CBC, LYTES ####[place] [address] USAMonocytes/100 WBC (Bld)10.9 %Normal.The [facility] Physician GroupComment on above:Performed By: #### CREAT, BUN, PP, CBC, LYTES ####[place] [address] USANeutrophils (Bld) [#/Vol]2.5 10*3/uLNormal1.8-7.7The [facility] Physician GroupComment on above:Performed By: #### CREAT, BUN, PP, CBC, LYTES ####[place] [address] USANeutrophils/100 WBC (Bld)49.9 %Normal.The [facility] Physician GroupComment on above:Performed By: #### CREAT, BUN, PP, CBC, LYTES ####[place] [address] USANRBC% 0.1 /100{WBC}Normal0-0.5The [facility] Physician GroupComment on above:Performed By: #### CREAT, BUN, PP, CBC, LYTES ####[place] [address] USAPlatelet mean volume (Bld) [Entitic vol]7.7 fL Normal6.3-10.7The [facility] Physician GroupComment on above:Performed By: #### CREAT, BUN, PP, CBC, LYTES ####[place] [address] USAPlatelets (Bld) [#/Vol]172 10*3/fZWejyuw001-683Qlo [facility] Physician GroupComment on above:Performed By: #### CREAT, BUN, PP, CBC, LYTES ####[place] [address] USARBC (Bld) [#/Vol]4.73 10*6/uLNormal3.60-5.00The [facility] Physician Group Comment on above:Performed By: #### CREAT, BUN, PP, CBC, LYTES ####[place] [id number] USAWBC (Bld) [#/Vol]4.9 10*3/uLNormal3.8-11.6The [facility] Physician GroupComment on above:Performed By: #### CREAT, BUN, PP, CBC, LYTES ####[address] [address] USACreatinineon 78-98-9023Dplcmgdgxh [Mass/Vol]0.61 mg/dLNormal0.60-1.20The [facility] Physician GroupComment on above:Performed By: #### CREAT, BUN, PP, CBC, LYTES ####[place] [address] USACreatinine Clr Calc Vmnppqrn87.73NormalThe [facility] Physician GroupComment on above:Result Comment: PERFORMED BY: [place] [address] PATHOLOGIST DISTRICT AGENT JANA OLMEDO M.D.Performed By: #### CREAT, BUN, PP, CBC, LYTES ####[address] [address] [place] GFR/1.73 sq M.predicted MDRD (S/P/Bld) [Vol rate/Area]mL/min/{1.73_m2}NormalThe [facility] Physician GroupComment on above:Performed By: #### CREAT, BUN, PP, CBC, LYTES ####[address] [address] USAECG 12 lead ECGon 11-70-8371BEU 12 lead ECGOHIOHEALTH DOCTORS HOSPITAL Main [place] [address] [place] [address] Electrocardiograph Report Signed Patient: Jose Alberto Saleem MR#: [id number] 571 : 1965 Acct:[id number] Age/Sex: 59 / F ADM Date: 08/20/24 Loc: Room: 6O5220-5 Type: DIS IN Attending Dr: Kaiser Quijano [...] abnormality Abnormal ECG Confirmed by Bella Stein ([id number]) on 08/22/2024 11:33:52 PM Referred By: Bella Stein Electronically Signed By: Bella Stein Transcribed By: MUS Signed By Bella Stein MD 4 2333Westbrook Medical CenterElectrolyteson 34-76-4713Pcqvx gap [Moles/Vol]11.0 mmol/LNormal6.0-15.0The [facility] Of HarmarvilleComment on above:Performed By: #### CREAT, BUN, PP, CBC, LYTES ####[facility] [place] [address] USAChloride [Moles/Vol]105 mmol/L Igcsri15-338Pda [facility] HarmarvilleComment on above:Performed By: #### CREAT, BUN, PP, CBC, LYTES ####[facility] [place] [address] USACO2 [Moles/Vol]27.9 mmol/ZImzmgx01.0-31.0The [facility] Of HarmarvilleComment on above:Performed By: #### CREAT, BUN, PP, CBC, LYTES ####[facility] [place] [address] USAPotassium [Moles/Vol]3.9 mmol/LNormal3.5-5.1The [facility] Comment on above:Performed By: #### CREAT, BUN, PP, CBC, LYTES ####[facility] [place] [address] USASodium [Moles/Vol]140 mmol/RHcmgcj083-784Dwz [facility] Physician GroupComment on above:Performed By: #### CREAT, BUN, PP, CBC, LYTES ####[facility] [address] [place] [address] USANM lia perf SPECT rest stron 55-66-9149KK lia perf SPECT rest [facility] [place] [address] [place] [address] Nuclear Medicine Report Signed Patient: Jose Alberto Saleem MR#: [id number] 571 : 1965 Acct:[id number] Age/Sex: 59 / F ADM Date: 08/18/24 Loc: Room: [address] [place] [address] Type: ADM INOo Attending Dr: Chucky Dunn [...] Bella Stein M.D.08/20/2024 3:56 PM Dictation Location: [place] [address] Transcribed By: [facility] 08/20/24 1556 Dictated By: Bella Stein MD 08/20/24 155 Signed By: 08/20/24 1556NormHCA Florida [facility] Physician ZdbgcN0H with Estimated Average Gluon 29-13-4645Ppiuyci [Mass/Vol]117 mg/dLNormalThCascade Medical Center Physician GroupComment on above:Result Comment: PERFORMED BY: [place] [address] PATHOLOGIST DISTRICT AGENT JANA OLMEDO M.D.Performed By: #### A1C WTH eA, HS TROP ####[facility] [address] [place] [id number] TJUJgH9g (Bld) [Mass fraction]5.7 %High4.3-5.6The [facility] Physician GroupComment on above:Result Comment: Increased risk for diabetes: 5.7 - 6.4 diabetes: >6.4 glycemic control for adults with diabetes: <7.0Performed By: #### A1C WTH eA, HS TROP ####[place] [address] USAECG 12 lead ECGon 94-71-8203NLE 12 lead ECGOHIOHEALTH DOCTORS HOSPITAL Main [place] [address] [place] [address] Electrocardiograph Report Signed Patient: Jose Alberto Saleem MR#: [id number] 571 : 1965 Acct:[id number] Age/Sex: 59 / F ADM Date: 08/18/24 Loc: Room: [address] [place] [address] Type: ADM INOo Attending Dr: Chucky Dunn [...] abnormality Abnormal ECG Confirmed by Bella Stein ([id number]) on 08/21/2024 12:00:39 AM Referred By: Bella Stein Electronically Signed By: Bella Stein Transcribed By: MUS Signed By Bella Stein MD 4 0000NoECU Health Edgecombe Hospital Physician GroupECG 12 lead ECGOHIOHEALTH DOCTORS HOSPITAL Main [address] [address] Electrocardiograph Report Signed Patient: Jose Alberto Saleem MR#: [id number] 571 : 1965 Acct:[id number] Age/Sex: 59 / F ADM Date: 08/18/24 Loc: Room: [address] [place] [address] Type: ADM INOo Attending Dr: Chucky Dunn [...] rhythm Leftward axis Confirmed by Bridgett Monreal ([id number]) on 08/20/2024 11:52:24 PM Referred By: Bella Stein Electronically Signed By: Bridgett Monreal Transcribed By: MUS Signed By Bridgett Monreal MD 08/20/24 2352NoECU Health Edgecombe Hospital Physician GroupTroponin I High Sensitivityon 66-11-9479Zoxirtkn I High Sensitivity4.6 pg/mLNormal0.0-15.0The [facility] Physician [facility] HospitalComment on above:Result Comment: PERFORMED BY: [place] [address] PATHOLOGIST DISTRICT AGENT JANA OLMEDO M.D.Performed By: #### A1C WT eA, HS TROP ####[facility] [address] [place] [address] USAX-ray reportOrdered By: Thelma Wick on 67-84-6246Tnzfg reportOHIOHEALTH DOCTORS HOSPITAL Main [address] [address] XRay Report Signed Patient: Jose Alberto Saleem MR#: [id number] : 1965 Acct:[id number] Age/Sex: 59 / F ADM Date: 4 Loc: Room: [address] [place] [address] Type: ADM INOo Attending Dr: Donis Arroyo [...] Thelma Wick M.D.08/19/2024 12:10 AM Dictation Location: [place] [address] Transcribed By: [facility] 08/19/24 001 Dictated By: Thelma Wick MD 08/18/242210 Signed By: 08/19/24 001 [facility] Work Phone: Alanine aminotransferase [Enzymatic activity/volume] in Serum or PlasmaOrdered By: Lynnette Chapman on 40-50-3425WMT [Catalytic activity/Vol]Alanine aminotransferase [Enzymatic activity/volume] in Serum or Plasma7-52Mar[facility] HospitalAlbumin [Mass/volume] in Serum or Plasma by Bromocresol green (BCG) dye binding methoOrdered By: Lynnette Chapman on 49-16-0808Jhtqjpp BCG dye [Mass/Vol]Albumin [Mass/volume] in Serum or Plasma by Bromocresol green (BCG) dye binding metho3.5-5.7FCity HospitalAlkaline phosphatase [Enzymatic activity/volume] in Serum or PlasmaOrdered By: Lynnette Chapman on 96-20-2373DZN [Catalytic activity/Vol]Alkaline phosphatase [Enzymatic activity/volume] in Serum or Qbfham31-062UkxbcvdcrMarion HospitalAspartate aminotransferase [Enzymatic activity/volume] in Serum or Plasma Ordered By: Lynnette Chapman on 11-22-5900TQW [Catalytic activity/Vol]Aspartate aminotransferase [Enzymatic activity/volume] in Serum or Vhjfiv91-59WxpeshqxwMarion HospitalB-Type Natriuretic Peptideon 87-13-2881Jscdkmykldt peptide B (Bld) [Mass/Vol]31.0 pg/mLNormal5-100The [facility] Physician Group Comment on above:Result Comment: PERFORMED BY: [place] [address] PATHOLOGIST DISTRICT AGENT JANA OLMEDO M.D.Performed By: #### HS TROP, LIPASE, PT, BMP, HEPATIC, CK, CBC, BNP ####[address] [place] [address] USABasic Metabolic Panelon 33-45-3708Lylek gap [Moles/Vol]10.7 mmol/L Normal6.0-15.0The [facility] Physician GroupComment on above:Performed By: #### HS TROP, LIPASE, PT, BMP, HEPATIC, CK, CBC, BNP #### [facility] [address] [place] [address] USAPerformed By: #### HS TROP, LIPASE, PT, BMP, HEPATIC, CK, CBC, BNP ####[place] [address] USACalcium [Mass/Vol]10.1 mg/dLNormal8.6-10.3The [facility] Physician Group Comment on above:Performed By: #### HS TROP, LIPASE, PT, BMP, HEPATIC, CK, CBC, BNP #### [facility] [address] [place] [address] USAPerformed By: #### HS TROP, LIPASE, PT, BMP, HEPATIC, CK, CBC, BNP ####[place] [address] USAChloride [Moles/Vol]102 mmol/JQlqkgx95-857Fji [facility] Physician Group Comment on above:Performed By: #### HS TROP, LIPASE, PT, BMP, HEPATIC, CK, CBC, BNP #### [place] [address] USAPerformed By: #### HS TROP, LIPASE, PT, BMP, HEPATIC, CK, CBC, BNP ####[place] [address] USACO2 [Moles/Vol]28.4 mmol/EKcishp09.0-31.0The [facility] Physician GroupComment on above:Performed By: #### HS TROP, LIPASE, PT, BMP, HEPATIC, CK, CBC, BNP #### [place] [address] USAPerformed By: #### HS TROP, LIPASE, PT, BMP, HEPATIC, CK, CBC, BNP ####[place] [address] USACreatinine [Mass/Vol]0.62 mg/dLNormal0.60-1.20The [facility] Physician Group Comment on above:Performed By: #### HS TROP, LIPASE, PT, BMP, HEPATIC, CK, CBC, BNP #### [place] [address] USAPerformed By: #### HS TROP, LIPASE, PT, BMP, HEPATIC, CK, CBC, BNP ####[place] [address] USACreatinine Clr Calc Npubpnbm65.72NormalThe [facility] Physician GroupComment on above:Result Comment: PERFORMED BY: [place] [address] PATHOLOGIST DISTRICT AGENT JANA OLMEDO M.D.Performed By: #### HS TROP, LIPASE, PT, BMP, HEPATIC, CK, CBC, BNP #### [place] [address] USAPerformed By: #### HS TROP, LIPASE, PT, BMP, HEPATIC, CK, CBC, BNP ####[place] [address] USAGFR/1.73 sq M.predicted MDRD (S/P/Bld) [Vol rate/Area]mL/min/{1.73_m2}Normal The [facility] Physician GroupComment on above:Performed By: #### HS TROP, LIPASE, PT, BMP, HEPATIC, CK, CBC, BNP #### [place] [address] USAPerformed By: #### HS TROP, LIPASE, PT, BMP, HEPATIC, CK, CBC, BNP ####[place] [address] USAGlucose [Mass/Vol]94 mg/uVIgumqe37-680Odo [facility] Physician GroupComment on above:Result Comment: Random Glucose Reference Range is dependent on time and content of last meal. Glucose of more than 200 mg/dL in a nonstressed, ambulatory subject supports the diagnosis of Diabetes Mellitus. ADA recommended reference rangePerformed By: #### HS TROP, LIPASE, PT, BMP, HEPATIC, CK, CBC, BNP #### [place] [address] USAPerformed By: #### HS TROP, LIPASE, PT, BMP, HEPATIC, CK, CBC, BNP ####[place] [address] USAPotassium [Moles/Vol]4.1 mmol/LNormal3.5-5.1The [facility] Physician Group Comment on above:Performed By: #### HS TROP, LIPASE, PT, BMP, HEPATIC, CK, CBC, BNP #### [place] [address] USAPerformed By: #### HS TROP, LIPASE, PT, BMP, HEPATIC, CK, CBC, BNP ####[place] [address] USASodium [Moles/Vol]137 mmol/VIuxdzt555-214Uju [facility] Physician GroupComment on above:Performed By: #### HS TROP, LIPASE, PT, BMP, HEPATIC, CK, CBC, BNP #### [place] [address] USAPerformed By: #### HS TROP, LIPASE, PT, BMP, HEPATIC, CK, CBC, BNP ####[place] [address] USAUrea nitrogen [Mass/Vol]22 mg/dLNormal7-25The [facility] Physician Group Comment on above:Performed By: #### HS TROP, LIPASE, PT, BMP, HEPATIC, CK, CBC, BNP #### [facility] [address] [place] [address] USAPerformed By: #### HS TROP, LIPASE, PT, BMP, HEPATIC, CK, CBC, BNP ####[facility] [address] [place] [address] USABasophils Auto (Bld) [#/Vol]Ordered By: Lynnette Chapman on 19-28-2173Lvuwqwlpf (Bld) [#/Vol]Automated basophil count0.0-0.2FCity Hospital Basophils/100 WBC Auto (Bld)Ordered By: Lynnette Chapman on 08-18-2024 Basophils/100 WBC (Bld)Automated basophil %.[facility] Bilirubin.direct [Mass/volume] in Serum or PlasmaOrdered By: Lynnette Chapman on 03-45-2894Rnyrtsxsf.direct [Mass/Vol]Bilirubin.direct [Mass/volume] in Serum or Plasma0.03-0.18FCity HospitalBilirubin.total [Mass/volume] in Serum or PlasmaOrdered By: Lynnette Chapman on 84-99-6716Zsccmulfv [Mass/Vol] Bilirubin.total [Mass/volume] in Serum or Plasma0.3-1.0[facility] HospitalCalcium [Mass/volume] in Serum or PlasmaOrdered By: Lynnette Chapman on 84-96-5955Zwknzpy [Mass/Vol]Calcium [Mass/volume] in Serum or Plasma8.6-10.3 [facility] HospitalCarbon dioxide, total [Moles/volume] in Serum or PlasmaOrdered By: Lynnette Chapman on 08-90-3790BP3 [Moles/Vol]Carbon dioxide, total [Moles/volume] in Serum or Tmwyiu61.0-31.0[facility] HospitalChloride [Moles/volume] in Serum or PlasmaOrdered By: Lynnette Chapman on 02-99-1073Sfvawhhl [Moles/Vol]Chloride [Moles/volume] in Serum or Zvjnxm54-587 [facility] HospitalComplete Blood Count Auto Diffon 08-18-2024 Basophils (Bld) [#/Vol]0.0 10*3/uLNormal0.0-0.2The [facility] Physician Group Comment on above:Result Comment: PERFORMED BY: [place] [address] PATHOLOGIST DISTRICT AGENT JANA OLMEDO M.D.Performed By: #### HS TROP, LIPASE, PT, BMP, HEPATIC, CK, CBC, BNP #### [place] [address] USABasophils/100 WBC (Bld)0.7 %Normal.The [facility] Physician GroupComment on above:Performed By: #### HS TROP, LIPASE, PT, BMP, HEPATIC, CK, CBC, BNP #### [place] [address] USAEosinophils (Bld) [#/Vol]0.2 10*3/uLNormal0.0-0.45The [facility] Physician GroupComment on above:Performed By: #### HS TROP, LIPASE, PT, BMP, HEPATIC, CK, CBC, BNP #### [place] [address] USAEosinophils/100 WBC (Bld)3.5 %Normal.The [facility] Physician GroupComment on above:Performed By: #### HS TROP, LIPASE, PT, BMP, HEPATIC, CK, CBC, BNP #### [place] [address] USAErythrocyte distribution width (RBC) [Ratio]12.6 %Normal 11.9-15.3The [facility] Physician GroupComment on above:Performed By: #### HS TROP, LIPASE, PT, BMP, HEPATIC, CK, CBC, BNP #### [place] [address] USAHematocrit (Bld) [Volume fraction]43.7 %Geyjxr89.0-46.4The [facility] Physician GroupComment on above:Performed By: #### HS TROP, LIPASE, PT, BMP, HEPATIC, CK, CBC, BNP #### [place] [address] USAHemoglobin (Bld) [Mass/Vol]15.1 g/mOVcuqti34.8-15.4The [facility] Physician GroupComment on above:Performed By: #### HS TROP, LIPASE, PT, BMP, HEPATIC, CK, CBC, BNP #### [place] [address] USALymphocytes (Bld) [#/Vol]2.2 10*3/uLNormal1.00-4.8The [facility] Physician GroupComment on above:Performed By: #### HS TROP, LIPASE, PT, BMP, HEPATIC, CK, CBC, BNP #### [place] [address] USALymphocytes/100 WBC (Bld)36.5 %Normal.The [facility] Physician GroupComment on above:Performed By: #### HS TROP, LIPASE, PT, BMP, HEPATIC, CK, CBC, BNP #### [place] [address] USAMCH (RBC) [Entitic mass]30.7 rcTqmagu23.7-34.3The [facility] Physician GroupComment on above:Performed By: #### HS TROP, LIPASE, PT, BMP, HEPATIC, CK, CBC, BNP #### [place] [address] USAMCV (RBC) [Entitic vol]88.8 tRHvwwvw79-843Vxp [facility] Physician GroupComment on above:Performed By: #### HS TROP, LIPASE, PT, BMP, HEPATIC, CK, CBC, BNP #### [place] [address] USAMean Corpuscular HGB Conc34.5 g/hISszgww94.0-35.0The [facility] Physician GroupComment on above:Performed By: #### HS TROP, LIPASE, PT, BMP, HEPATIC, CK, CBC, BNP #### [place] [address] USAMonocytes (Bld) [#/Vol]0.6 10*3/uLNormal0.0-0.8The [facility] Physician GroupComment on above:Performed By: #### HS TROP, LIPASE, PT, BMP, HEPATIC, CK, CBC, BNP #### [place] [address] USAMonocytes/100 WBC (Bld)16.97 %Normal0.00-20.00The [facility] Physician GroupComment on above:Performed By: #### HS TROP, LIPASE, PT, BMP, HEPATIC, CK, CBC, BNP #### [place] [address] USAMonocytes/100 WBC (Bld)10.5 %Normal.The [facility] Physician GroupComment on above:Performed By: #### HS TROP, LIPASE, PT, BMP, HEPATIC, CK, CBC, BNP #### [place] [address] USANeutrophils (Bld) [#/Vol]3.0 10*3/uLNormal1.8-7.7The [facility] Physician GroupComment on above:Performed By: #### HS TROP, LIPASE, PT, BMP, HEPATIC, CK, CBC, BNP #### [place] [address] USANeutrophils/100 WBC (Bld)48.8 %Normal.The [facility] Physician GroupComment on above:Performed By: #### HS TROP, LIPASE, PT, BMP, HEPATIC, CK, CBC, BNP #### [place] [address] USANRBC%0.1 /100{WBC}Normal0-0.5The [facility] Comment on above:Performed By: #### HS TROP, LIPASE, PT, BMP, HEPATIC, CK, CBC, BNP #### [place] [address] USAPlatelet mean volume (Bld) [Entitic vol]7.9 fLNormal 6.3-10.7The [facility] Physician GroupComment on above:Performed By: #### HS TROP, LIPASE, PT, BMP, HEPATIC, CK, CBC, BNP #### [facility] [address] [place] [address] USAPlatelets (Bld) [#/Vol]204 10*3/iAZxlfjr425-059Omk [facility] Physician GroupComment on above:Performed By: #### HS TROP, LIPASE, PT, BMP, HEPATIC, CK, CBC, BNP #### [facility] [address] [place] [address] USARBC (Bld) [#/Vol]4.92 10*6/uLNormal3.60-5.00The [facility] Physician GroupComment on above:Performed By: #### HS TROP, LIPASE, PT, BMP, HEPATIC, CK, CBC, BNP #### [facility] [address] [place] [address] USAWBC (Bld) [#/Vol]6.1 10*3/uLNormal3.8-11.6The [facility] Physician GroupComment on above:Performed By: #### HS TROP, LIPASE, PT, BMP, HEPATIC, CK, CBC, BNP #### [facility] [address] [place] [id number] USACreatine Kinaseon 46-63-7791AB [Catalytic activity/Vol]53 U/MMupolo34-639Kja [facility] Physician GroupComment on above:Performed By: #### HS TROP, LIPASE, PT, BMP, HEPATIC, CK, CBC, BNP ####[facility] [place] [id number] USACreatine kinase [Enzymatic activity/volume] in Serum or PlasmaOrdered By: Lynnette Chapman on 96-59-5601YI [Catalytic activity/Vol]Creatine kinase [Enzymatic activity/volume] in Serum or Rjxlko17-726QomsbxxqbMarion HospitalCreatinine [Mass/volume] in Serum or PlasmaOrdered By: Lynnette Chapman on 84-18-6074Fzwseckhvc [Mass/Vol]Creatinine [Mass/volume] in Serum or Plasma0.60-1.20Marion HospitalECG 12 lead ECGon 37-13-4414QEZ 12 lead ECGOHIOHEALTH [facility]CTORS [facility] Main [place] [address] [place] [address] Electrocardiograph Report Signed Patient: Jose Alberto Saleem MR#: [id number] 571 : 1965 Acct:[id number] Age/Sex: 59 / F ADM Date: 08/18/24 Loc: ER Room: Type: [facility] ER Attending Dr: Ordering Provider: Lynnette [...] wave abnormality Confirmed by Lynnette Chapman MD ([id number]) on 08/18/2024 11:22:40 PM Referred By: Electronically Signed By: Lynnette Chapman MD Transcribed By: MUS Signed By Lynnette Chapman MD 08/01 05/[address] [place] [address] Physician GroupEosinophils Auto (Bld) [#/Vol] Ordered By: Lynnette Chapman on 95-42-9574Essnmefzirt (Bld) [#/Vol]Automated eosinophil count0.0-0.45Marion HospitalEosinophils/100 WBC Auto (Bld)Ordered By: Lynnette Chapman on 91-63-3269Uzxtijvmrjk/100 WBC (Bld) Automated eosinophil %.Marion HospitalErythrocyte distribution width Auto (RBC) [Ratio]Ordered By: Lynnette Chapman on 97-20-4866Ooyvbgwfhlc distribution width (RBC) [Ratio]Erythrocyte distribution width [Ratio] by Automated count11.9-15.3FCity HospitalGlobulin Calc (S) [Mass/Vol]Ordered By: Lynnette Chapman on 81-96-4219Mflqoihe (S) [Mass/Vol]Serum globulin measurement by calculation (mass/volume)Marion HospitalGlucose [Mass/volume] in Serum or PlasmaOrdered By: Lynnette Chapman on 95-24-3064Flwjbnv [Mass/Vol]Glucose [Mass/volume] in Serum or Bbxsdp15-374 Marion HospitalComment on above:ADA recommended reference rangeRandom Glucose Reference Range is dependent on time and content of last meal. Glucose of more than 200 mg/dL in a nonstressed, ambulatory subject supports the diagnosisof Diabetes Mellitus.Hematocrit Auto (Bld) [Volume fraction]Ordered By: Lynnette Chapman on 84-36-8197Tdevhpmdkt (Bld) [Volume fraction]Hematocrit [Volume Fraction] of Blood by Automated count34.0-46.4 Marion HospitalHemoglobin [Mass/volume] in BloodOrdered By: Lynnette Chapman on 20-24-2456Zgzxduwqxh (Bld) [Mass/Vol]Hemoglobin [Mass/volume] in Blood11.8-15.4FCity HospitalHepatic Panelon 08-18-2024 Albumin [Mass/Vol]4.3 g/dLNormal3.5-5.7The [facility] Physician GroupComment on above:Performed By: #### HS TROP, LIPASE, PT, BMP, HEPATIC, CK, CBC, BNP ####[address] Albumin/Globulin [Mass ratio]1.7 {ratio}NormalThe [facility]ician [facility] Comment on above:Performed By: #### HS TROP, LIPASE, PT, BMP, HEPATIC, CK, CBC, BNP ####[place] [id number] USAALP [Catalytic activity/Vol]89 U/WJgcxcl96-518Vpy [facility] Physician [facility] HospitalComment on above:Performed By: #### HS TROP, LIPASE, PT, BMP, HEPATIC, CK, CBC, BNP ####[place] [id number] USAALT [Catalytic activity/Vol]42 U/LNormal7-52The [facility] Physician [facility] HospitalComment on above:Performed By: #### HS TROP, LIPASE, PT, BMP, HEPATIC, CK, CBC, BNP ####[place] [address] USAAST [Catalytic activity/Vol]31 U/TSkkyjk67-71Qmg [facility] Physician [facility] HospitalComment on above:Performed By: #### HS TROP, LIPASE, PT, BMP, HEPATIC, CK, CBC, BNP ####[address] Bilirubin [Mass/Vol]0.4 mg/dLNormal0.3-1.0The [facility] Physician GroupComment on above:Performed By: #### HS TROP, LIPASE, PT, BMP, HEPATIC, CK, CBC, BNP ####[address] Bilirubin,Indirect0.3 mg/dLNormParkview Healthe [facility] Physician GroupComment on above: Performed By: #### HS TROP, LIPASE, PT, BMP, HEPATIC, CK, CBC, BNP ####[place] [address] USABilirubin.indirect [Mass/Vol]0.10 mg/dLNormal0.03-0.18The [facility] Physician GroupComment on above:Performed By: #### HS TROP, LIPASE, PT, BMP, HEPATIC, CK, CBC, BNP ####[address] Globulin (S) [Mass/Vol]2.6 g/dLNormParkview Healthe [facility] Physician [facility] HospitalComment on above:Performed By: #### HS TROP, LIPASE, PT, BMP, HEPATIC, CK, CBC, BNP ####[place] [address] USAProtein [Mass/Vol]6.9 g/dLNormal6.4-8.9The [facility] Physician [facility] HospitalComment on above: Performed By: #### HS TROP, LIPASE, PT, BMP, HEPATIC, CK, CBC, BNP ####[place] [address] USAINR in Platelet poor plasma by Coagulation assayOrdered By: Lynnette Chapman on 02-11-3062OGL Coag (PPP) [Relative time]INR in Platelet poor plasma by Coagulation assayMarion HospitalComment on above:INR Therapeutic Range A) Pre- [...] by Automated counOrdered By: Lynnette Chapman on 81-49-1856CZL corrected for nucl RBC Auto (Bld) [#/Vol]Leukocytes [#/volume] corrected for nucleated erythrocytes in Blood by Automated coun3.8-11.6FCity HospitalLipaseon 76-23-9665Zsdcgj [Catalytic activity/Vol]110.0 U/LHigh11.0-82.0The [facility] Physician GroupComment on above:Result Comment: PERFORMED BY: [facility] [address] [place] [address] PATHOLOGIST DISTRICT AGENT JANA OLMEDO M.D.Performed By: #### HS TROP, LIPASE, PT, BMP, HEPATIC, CK, CBC, BNP ####[facility] [place] [address] USALipase [Enzymatic activity/volume] in Serum or PlasmaOrdered By: Lynnette Chapman on 92-12-1917Nstkfv [Catalytic activity/Vol]Lipase [Enzymatic activity/volume] in Serum or XjnbemCelo38.0-82.0Marion HospitalLymphocytes Auto (Bld) [#/Vol]Ordered By: Lynnette Chapman on 08-18-2024 Lymphocytes (Bld) [#/Vol]Lymphocytes [#/volume] in Blood by Automated count 1.00-4.8Marion HospitalLymphocytes/100 WBC Auto (Bld)Ordered By: Lynnette Chapman on 73-95-2770Dulbnzducnx/100 WBC (Bld)Lymphocytes/100 leukocytes in Blood by Automated count.[facility] Auto (RBC) [Entitic mass]Ordered By: Lynnette Chapman on 79-64-4820MRU (RBC) [Entitic mass]MCH [Entitic mass] by Automated count24.7-34.3FCity HospitalMCHC Auto (RBC) [Mass/Vol]Ordered By: Lynnette Chapman on 38-64-4656UIFV (RBC) [Mass/Vol]MCHC [Mass/volume] by Automated count32.0-35.0Marion HospitalMCV Auto (RBC) [Entitic vol]Ordered By: Lynnette Chapman on 51-64-7874RLE (RBC) [Entitic vol]MCV [Entitic volume] by Automated rytkj39-733 Marion HospitalMonocyte distribution width [Entitic volume] in Blood by AutomatedOrdered By: Lynnette Chapman on 41-53-5400Iumhbldd distribution width Auto (Bld) [Entitic vol]Monocyte distribution width [Entitic volume] in Blood by Automated0.00-20.00Marion HospitalMonocytes Auto (Bld) [#/Vol]Ordered By: Lynnette Chapman on 90-66-9889Vvnvfwoyo (Bld) [#/Vol] Automated blood monocyte count0.0-0.8[facility] Monocytes/100 WBC Auto (Bld)Ordered By: Lynnette Chapman on 08-18-2024 Monocytes/100 WBC (Bld)Automated monocyte %.[facility] Natriuretic peptide B [Mass/Vol]Ordered By: Lynnette Chapman on 08-18-2024 Natriuretic peptide B (Bld) [Mass/Vol]BNP ser/plas5-100Marion HospitalNeutrophils Auto (Bld) [#/Vol]Ordered By: Lynnette Chapman on 03-31-0734Kpxwruiveyl (Bld) [#/Vol]Neutrophils [#/volume] in Blood by Automated count1.8-7.7FCity HospitalNeutrophils/100 WBC Auto (Bld) Ordered By: Lynnette Chapman on 35-86-1813Youahubhrio/100 WBC (Bld)Automated neutrophil %.Marion HospitalNo Panel InformationOrdered By: Lynnette Chapman on 54-56-8193Klqatwbkq GFR (CKD-EPI)> 60.0 mL/MinMarion HospitalPharmacy Creatinine Clearance (Chem95.72Marion HospitalNucleated erythrocytes [Presence] in Blood by Automated countOrdered By: Lynnette Chapman on 32-18-9018Deueotkcf RBC Auto Ql (Bld) Nucleated erythrocytes [Presence] in Blood by Automated count0-0.5FCity HospitalPlatelet mean volume Auto (Bld) [Entitic vol]Ordered By: Lynnette Chapman on 21-64-7918Sudxhqrz mean volume (Bld) [Entitic vol]Platelet mean volume [Entitic volume] in Blood by Automated count6.3-10.7FCity HospitalPlatelets Auto (Bld) [#/Vol]Ordered By: Lynnette Chapman on 55-55-7140Hrikrrvju (Bld) [#/Vol]Platelets [#/volume] in Blood by Automated ugvzf603-500SqtsvzqemMarion HospitalPotassium [Moles/volume] in Serum or PlasmaOrdered By: Lynnette Chapman on 31-70-2092Fzvhpftcx [Moles/Vol]Potassium [Moles/volume] in Serum or Plasma3.5-5.1FCity HospitalProtein [Mass/volume] in Serum or PlasmaOrdered By: Lynnette Chapman on 13-07-3579Txfnxql [Mass/Vol]Protein [Mass/volume] in Serum or Plasma6.4-8.9Marion HospitalProthrombin Time INRon 73-14-8891BXT Coag (PPP) [Relative time]1.0 {INR}NormalThe [facility] Physician GroupComment on above:Result Comment: INR [...] heart valves: 3 - 4.5 PERFORMED BY: [place] [address] PATHOLOGIST DISTRICT AGENT JANA OLMEDO M.D.Performed By: #### HS TROP, LIPASE, PT, BMP, HEPATIC, CK, CBC, BNP #### [place] [address] USAPT Coag (PPP) [Time]11.7 sNormal9.0-12.9The [facility] Physician GroupComment on above:Result Comment: A hematocrit value greater than 55% may lead to inaccurate results in coagulation testing. Patients having hematocrit values >55% require a special collection tube for coagulation studies. Please contact the laboratory at [phone] for redraw instructions.Performed By: #### HS TROP, LIPASE, PT, BMP, HEPATIC, CK, CBC, BNP #### [facility] [address] [place] [address] USAProthrombin time (PT)Ordered By: Lynnette Chapman on 57-13-2268SF Coag (PPP) [Time]Prothrombin time (PT)9.0-12.9Marion HospitalComment on above:A hematocrit value greater than 55% may lead to inaccurate results in coagulation testing. Patientshaving hematocrit values >55% require a special collection tube for coagulation studies. Please contact the laboratory at [phone] for redraw instructions.RBC Auto (Bld) [#/Vol]Ordered By: Lynnette Chapman on 39-66-0857UCD (Bld) [#/Vol]Erythrocytes [#/volume] in Blood by Automated count3.60-5.00[facility] Southerum or plasma albumin/globulin mass ratioOrdered By: Lynnette Chapman on 08-18-2024 Albumin/Globulin [Mass ratio]Serum or plasma albumin/globulin mass ratio [facility] Southerum or plasma anion gap determinationOrdered By: Lynnette Chapman on 24-96-8723Bkvmi gap [Moles/Vol]Serum or plasma anion gap determination6.0-15.0[facility] Southerum or plasma non- glucuronidated bilirubin measurement (mass/volume)Ordered By: Lynnette Chapman on 55-58-2958Ludfmoeta.indirect [Mass/Vol]Serum or plasma non-glucuronidated bilirubin measurement (mass/volume)[facility] Southodium [Moles/volume] in Serum or PlasmaOrdered By: Lynnette Chapman on 68-50-8812Cserow [Moles/Vol]Sodium [Moles/volume] in Serum or Igswzm605-589JbgesfcfxMarion HospitalTroponin I High Sensitivityon 22-67-0334Xhvtkbgx I High Sensitivity4.7 pg/mLNormal0.0-15.0The [facility] Physician GroupComment on above: Result Comment: PERFORMED BY: [facility] [address] [place] [address] PATHOLOGIST DISTRICT AGENT JANA OLMEDO M.D.Performed By: #### HS TROP ####[place] [address] [place] [address] USATroponin I High Sensitivity5.1 pg/mLNormal0.0-15.0The [facility] Physician GroupComment on above:Result Comment: PERFORMED BY: [place] [id number] PATHOLOGIST DISTRICT AGENT JANA OLMEDO M.D.Performed By: #### HS TROP, LIPASE, PT, BMP, HEPATIC, CK, CBC, BNP ####[place] [address] [place] [address] USATroponin I.cardiac [Mass/volume] in Serum or Plasma by Detection limit <= 0.01 ng/Ordered By: Lynnette Chapman on 65-34-3854Tbsfgqro I.cardiac DL <= 0.01 ng/mL [Mass/Vol]Troponin I.cardiac [Mass/volume] in Serum or Plasma by Detection limit <= 0.01 ng/0.0-15.0Marion HospitalUrea nitrogen [Mass/volume] in Serum or PlasmaOrdered By: Lynnette Chapman on 82-17-8518Hkgj nitrogen [Mass/Vol]Urea nitrogen [Mass/volume] in Serum or Plasma 7-25Marion HospitalWBC Auto (Bld) [#/Vol]Ordered By: Lynnette Chapman on 53-88-1315WSW (Bld) [#/Vol]Leukocytes [#/volume] in Blood by Automated count3.8-11.6FCity HospitalXR chest 2V*on 41-38-0749IM chest 2V*[facility] Main [address] [address] XRay Report Signed Patient: Jose Alberto Saleem MR#: [id number] 571 : 1965 Acct:[id number] Age/Sex: 59 / F ADM Date: 08/18/24 Loc: Room: [address] [place] [address] Type: ADM INOo Attending Dr: Donis Arroyo [...] Thelma Wick M.D.08/19/2024 12:10 AM Dictation Location: [place] [address] Transcribed By: [facility] 08/19/24 0010 Dictated By: Thelma Wick MD 08/18/242210 Signed By: 08/19/24 0010[facility] Physician GroupUrology Office/Clinic Noteon 32-81-9564Jwbuycd Office/Clinic NoteUrology Office/Clinic Note Chief Complaint OAB [...] Myrbetriq from 25mg to 50mg qd Ordered: 64914 Measure Post Void residual urine and/or bladder capacity by US- non-imaging E&M of Est. Patient Moderate 30-39 Min 68067 Urnls Dip Stick Auto w/o Microscopy POC 66758 2. Urethral pain (R39.89: Other symptoms and [...] # 90 tab(s), Refills(s) 3, Pharmacy: [facility] [id number], 160, cm, 08/05/24 11:29:00 EST, Height/Length Dosing, 74.2, kg, 08/05/24 11:29:00 EST, Weight Dosing tamsulosin, 0.4 mg = 1 cap(s), Oral, Daily, # 90 cap(s), Refills(s) 3, Pharmacy: [facility], 160, cm, 08/05/24 11:29:00 EST, Height/Length Dosing, 74.2, kg, 08/05/24 11:29:00 EST, Weight Dosing Follow-up With When Contact Information JENNIFER MARTINO PA-C, URL Within 1 year Additional Instructions: Patient Education Kidney Stones, Zewj-np-Cjjb Problem List/Past Medical History Ongoing Anticoagulated Feeling (more content not included)...[facility] HospitalComment on above:Result Comment: Electronically Signed By: JENNIFER MARTINO PA-C\.br\Date and Time Signed: 08/05/2412:20 ESTGlucose Glucometer (BldC) [Mass/Vol]on 90-48-3183Bhrcyhm [Mass/Vol]79 mg/dDLvamdb55-37QvtAfkdnzEast [place] Regional Hospitalurgical Pathology Reporton 17-85-9182Zbtnphde Pathology Report(NOTE) Path Number: [id number] -- Diagnosis -- ENDOMETRIAL CURETTINGS: -BENIGN ENDOMETRIAL [...] Microscopic Description Microscopic examination performed. Processing Lab: [address] [address] Interpretation Performed at [facility] [address] [place] [address] SURGICAL PATHOLOGY CONSULTATION Patient Name: JOSE ALBERTO SALEEM Med Rec: [id number] [facility] ANATOMIC PATHOLOGY [address] [place] [address]. [place], [place] [address] NormalMercy Day Kimball HospitalUS NON OB TRANSVAGINALon 04-46-5363BJ NON OB TRANSVAGINALTable formatting from the original [...] by: Gaby Tello DO 06/05/23 Final resultNormalMercy Mercy Medical CenterCeruloplasminon 12-12-2022 Trebslsvlexhh20.6 mg/dL19.0-39.0 mg/dLProvidence Centralia Hospital [employer] Other Ferritinon 57-14-6425Scmvwerp [Mass/Vol]43.7375889 ng/eWOqnbzn79.0-306.8 ng/mLNGlen Cove Hospital [employer] Other Hepatitis A Antibody Totalon 92-58-1213Wdslbgrtu A Antibody TotalNegative.[employer] Other Hepatitis B Surface Antibodyon 01-21-9029Eisbdyfgp B Surface AntibodyNon-ReactiveNon ReactiveProvidence Centralia Hospital [employer] Other Immunoglobulin Javi 37-75-7272Qpgiwvdlqsehhc G823 mg/dL 586-1602 mg/dLWildwood [employer] Other 489-3734Zzadc-Wqrogn Microsomal Abon 49-82-1070Djwrz-Kidney Microsomal Ab1.10.0-20.0[facility] [employer] Other Mitochondrial (M2) Antibodyon 20-80-3800Aohjaniqqdbyg (M2) Antibody<20.00.0-20.0Nopemiscot memorial health systems [employer] Other Smooth Muscle Antibodyon 81-44-4491Zpkhav Muscle Jxtvfpbh39-17Dumpg [employer] Other mr MRCPon 72-15-9677FP [facility] [employer] Other mr [facility] [employer] Other mr [address] [employer] Other mr MRCPSANNAMARIA rhoades 118[address]YfeuaProvidence Centralia Hospital [employer] Other mr MRCPMRI ReportProvidence Centralia Hospital [employer] Other mr MRCPSignedWildwood [employer] Other mr MRCPPatient: Jose Alberto Saleem MR#: [id number] [employer] Other mr ERJP436Uytzj [employer] Other mr MRCPDOB: 1965 Acct:[id number] [employer] Other mr MRCPAge/Sex: 57 / F ADM Date: 11/10/22[place] [employer] Other mr MRCPLoc: MR Room: Type: [facility] [employer] Other mr MRCPAttending Dr: Evert Bruno [facility] [employer] Other mr MRCPCopies to: Evert Bruno [facility] [employer] Other mr MRCPOrdering Provider: Evert Bruno [facility] [employer] Other mr MRCPDate of Service: 11/10/22[place] [employer] Other mr MRCPAccession #: ([id number]) MR/MR MRCP: Abdominal pain;Common bile duct dilatation;Elevated liver [facility] [employer] Other mr MRCRCHeartland Behavioral Health Services [employer] Other mr MRCPCLINICAL DATA: Elevated lipase. Abnormal outside abdominal CTWildwood [employer] Other mr MRCPCOMPARISON: CT abdomen 10/16/2022[place] [employer] Other mr MRCPMultiecho imaging of the abdomen was performed along with radial imaging of the biliary tree.[employer] Other mr MRCPThe gallbladder surgically absent. There is no significant intrahepatic biliary dilatation. [facility] [employer] Other mr MRCPcommon duct is slightly prominent measuring up to 6 mm. It tapers toward the ampulla. No inNscotland county memorial hospital [employer] Other MR MRCPtraluminal filling defects are identified to suggest choledocholithiasis. The pancreatic duct isNopemiscot memorial health systems [employer] Other MR MRCPalso borderline prominent measuring 2 - 3 mm. No intrahepatic masses are identified. No pancreaticWildwood [employer] Other mr MRCPabnormalities are noted. The spleen and adrenal glands are within normal limits. There is [facility] [employer] Other MR MRCPhydronephrosis. There are right renal cysts. There is no aortic aneurysm. No adenopathy [facility] [employer] Other mr MRCPascites is seen. There is no dilated bowel within the uurdw-gi-qhpp.[employer] Other mr MRCPORDER #: [id number] MR/MR MRCPNGlen Cove Hospital [employer] Other mr MRCPIMPRESSION:[employer] Other MR MRCPSLIGHTLY PROMINENT COMMON DUCT, WITHOUT CHOLEDOCHOLITHIASIS. THIS MAY RELATE TO PREVIOUSWildwood [employer] Other mr MRCPCHOLECYSTECTOMY.[employer] Other mr MRCPRIGHT RENAL CYSTS.[employer] Other mr MRCPNO OTHER SIGNIFICANT MRI FINDINGS.[employer] Other mr MRCPImpression dictated by: Thelma Wick M.D.11/10/2022 7:00 [facility] [employer] Other mr MRCPDictation Location: [address] [employer] Other mr MRCPTranscribed By: BEN 11/10/22[facility] [employer] Other mr MRCPDictated By: Thelma Wick MD 11/10/221849 [employer] Other mr MRCPSigned By:[employer] Other mr MRCP11/10/221899[facility] [employer] Other albumin [Mass/volume] in Serum or PlasmaOrdered By: sraa Bruno on 37-28-9017Xhnyvcz [Mass/Vol]4.0 g/dL3.2-5.5FCity HospitalDirect bilirubin measurementOrdered By: Imad Asasara on 11-01-2022 Bilirubin.direct [Mass/Vol]0.1 mg/dL0.0-0.4FCity Hospital Globulin Calc (S) [Mass/Vol]Ordered By: Imad Asaad on 86-70-3644Bjxidqgz (S) [Mass/Vol]2.5 g/dLMarion HospitalHepatic Panelon 11-01-2022 Albumin [Mass/Vol]4.013390 g/dLNormal3.2-5.5 g/dLWildwood [employer] Other aLT [Catalytic activity/Vol]94 U/COhgu31-35 U/LNscotland county memorial hospital [employer] Other bilirubin [Mass/Vol]0.0035322 mg/dLNormal0.3-1.2 mg/dL [employer] Other bilirubin.indirect [Mass/Vol]0.1189423 mg/dLNormal0.0- 0.4 mg/dLWildwood [employer] Other Protein [Mass/Vol]6.022728 g/dLNormal6.1-7.9 g/dLWildwood [employer] Other Hepatic Panel0.5 mg/dLNort [employer] Other Hepatic Panel2.5 g/dLNoGametime Other Protein [Mass/volume] in Serum or PlasmaOrdered By: Imad Asaad on 92-52-5165Egxbbar [Mass/Vol]6.5 g/dL6.1-7.9[facility] Southerum or plasma alanine aminotransferase measurement without P-5'-P (enzymatic activiOrdered By: Imad Asaad on 89-16-7360RNO No additional P-5'-P [Catalytic activity/Vol]94 U/W93-31AsxfexzzrPremier Health [facility] Hospital Southerum or plasma albumin/globulin mass ratioOrdered By: Imad Asaad on 11-01-2022 Albumin/Globulin [Mass ratio]1.6 {ratio}[facility] Southerum or plasma alkaline phosphatase measurement (enzymatic activity/volume)Ordered By: Imad Asaad on 91-31-3617XKM [Catalytic activity/Vol]93 U/B49-65ImpcbcajbPremier Health Miami [facility] Hospital Southerum or plasma aspartate aminotransferase measurement (enzymatic activity/volume)Ordered By: Imad Asaad on 54-35-0107JHP [Catalytic activity/Vol]66 U/J11-06HbaixjasePremier Health Miami [facility] Hospital Southerum or plasma non- glucuronidated bilirubin measurement (mass/volume)Ordered By: Imad Asaad on 03-40-1326Hmgsibmrg.indirect [Mass/Vol]0.5 mg/dLPremier Health Miami Valley Hospital Southerum or plasma total bilirubin measurement (mass/volume)Ordered By: Imad Asaad on 05-50-6362Pbfzgzmcv [Mass/Vol]0.6 mg/dL0.3-1.2FCity HospitalCT ABDOMEN WO/W CONon 78-07-2196SZ ABDOMEN WO/W CONEXAMINATION: CT ABDOMEN WO/W CON [...] Electronically authenticated by: JAE WILSON Date: 2022-10-17 08:23[facility] Memorial HospitalAMMONIAon 90-56-5027Nggxdzw (P) [Moles/Vol]10 umol/LCritically jco56-17Bcx [facility] HospitalComment on above:Performed By: #### COLE #### [facility] [facility] [address] [place] [address] Dr. Ayden CamAMYLASEon [id number] [Catalytic activity/Vol]144 U/L Critically ltbn16-601Tfg [facility] HospitalComment on above:Performed By: #### LIPA #### [facility] [address] [place] [address] Dr. Ayden Abdul AUTO DIFFon [id number] #0.0 103/ulNormal0.0-0.1The [facility] HospitalComment on above:Performed By: #### CBC #### [facility] [address] [address] [address] Ayden CamBasophils/100 WBC (Bld)0.2 %Normal0.2-2.0The [facility] Comment on above:Performed By: #### CBC #### [facility] [address] [address] [address] Hensley ChangEAmauri #0.2 103/ulNormal0.0-0.7The [facility] HospitalComment on above: Performed By: #### CBC #### [facility] [address] [place] [address] Dr. Ayden Koehlerosinophils/100 WBC (Bld)3.3 %Normal0.9-7.0The [facility] Comment on above:Performed By: #### CBC #### [facility] [address] [place] [address] Dr. Ayden Koehlerrythrocyte distribution width (RBC) [Ratio]12.1 %Uikftj95.0-15.0 The [facility] HospitalComment on above:Performed By: #### CBC #### [facility] [address] [place] [address] Dr. Ayden CamHematocrit (Bld) [Volume fraction]40.0 %Dcjxst36.0-48.0The [facility] HospitalComment on above:Performed By: #### CBC #### [facility] [address] [place] [address] Dr. Ayden CamHemoglobin (Bld) [Mass/Vol]14.2 g/nAFijikv61.0-16.0The [facility] HospitalComment on above:Performed By: #### CBC #### [facility] [address] [place] [address] Dr. Ayden Dickson #0.01 10e3/ulNormal0.00-0.03The [facility] HospitalComment on above:Performed By: #### CBC #### [facility] [address] [place] [address] Dr. Ayden Dickson %0.2 %Normal0.0-0.5The [facility] HospitalComment on above: Performed By: #### CBC #### [facility] [address] [place] [address] Dr. Ayden PikeH #1.5 103/ulNormal1.2-3.8The [facility] HospitalComment on above:Performed By: #### CBC #### [facility] [address] [place] [address] Dr. Yilan ChangLymphocytes/100 WBC (Bld)24.2 %Ufmsdn78.5-60.0The [facility] HospitalComment on above:Performed By: #### CBC #### [facility] [address] [place] [address] Dr. Ayden Melendez DIFF REQNONormalThe [facility] HospitalComment on above: Performed By: #### CBC #### [facility] [address] [place] [address] Dr. Ayden Mccormack (RBC) [Entitic mass]30.0 xwGldcmj48.7-34.0The [facility] HospitalComment on above:Performed By: #### CBC #### [facility] [address] [place] [address] Dr. Ayden Mccormack (RBC) [Mass/Vol]35.5 g/dLCritically high29.9-35.2The [facility] HospitalComment on above:Performed By: #### CBC #### [facility] [address] [place] [address] Dr. Ayden Melton (RBC) [Entitic vol]84.4 yAUukyrc95.0-99.0The [facility] HospitalComment on above:Performed By: #### CBC #### [facility] [address] [place] [address] Dr. Ayden Thornton #0.6 103/ulNormal0.3-0.8The [facility] HospitalComment on above:Performed By: #### CBC #### [facility] [address] [place] [address] Dr. Ayden Atkinsonocytes/100 WBC (Bld)10.3 %Normal1.7-12.0The [facility] Comment on above:Performed By: #### CBC #### [facility] [address] [place] [address] Dr. Ayden Garrett #3.7 103/ulNormal1.4-6.5The [facility] HospitalComment on above:Performed By: #### CBC #### [facility] [address] [place] [address] Dr. Ayden Hongutrophils/100 WBC (Bld)61.8 %Oplumd32.0-75.0The [facility] HospitalComment on above:Performed By: #### CBC #### [facility] [address] [place] [address] Dr. Ayden CamPlatelet mean volume (Bld) [Entitic vol]9.0 fLCritically low 9.5-13.5The [facility] HospitalComment on above:Performed By: #### CBC #### [facility] [address] [place] [address] Dr. Ayden CamPLT191 103/uyLgdohc459-579Fec [facility] HospitalCombea[facility] on above: Performed By: #### CBC #### [facility] [address] [place] [address] Dr. Ayden CamRBC4.74 106/ulNormal4.20-5.40The [facility] Hospitalment on above:Performed By: #### CBC #### [facility] [address] [place] [address] Dr. Ayden CamWBC6.0 103/ulNormal4.0-11.0The [facility] HospitalComment on above: Performed By: #### CBC #### [facility] [address] [place] [address] Dr. Ayden CamLIPASEon 46-11-6612Zvrewn [Catalytic activity/Vol]168.0 U/LNormal 73.0-393.0The [facility] HospitalCombeaum[facility] on above:Performed By: #### LACT #### [facility] [address] [place] [address] Dr. Ayden CamPROF 14(COMP METB)on 72-03-2425Jcpento [Mass/Vol]3.6 g/dLNormal 3.4-5.0[facility] on above:Performed By: #### LIPA #### [facility] [address] [place] [address] Dr. Ayden CamAlbumin/Globulin [Mass ratio]1.1 {ratio}NormalThe [facility] HospitalComment on above:Performed By: #### LIPA #### [facility] [address] [address] [address] Ayden Tobar [Catalytic activity/Vol]93 U/FBznflo69-928Uqh [facility] HospitalComment on above:Performed By: #### LIPA #### [facility] [address] [address] [address] Ayden CoburnT [Catalytic activity/Vol]52 U/RAgjhsd46-87Njj [facility] HospitalComment on above:Performed By: #### LIPA #### [facility] [address] [address] [address] Ayden Terrell gap [Moles/Vol]10.2 mmol/LNormalThe [facility] Comment on above:Performed By: #### LIPA #### [facility] [address] [address] [address] Ayden CamAST [Catalytic activity/Vol]33 U/ODklapk17-88Lry [facility] HospitalComment on above:Performed By: #### LIPA #### [facility] [address] [address] [address] Ayden CamBilirubin [Mass/Vol]0.3 mg/dLNormal0.2-1.0[facility] Comment on above:Performed By: #### LIPA #### [facility] [address] [place] [address] Dr. Ayden CamCalcium [Mass/Vol]9.4 mg/dLNormal8.5-10.1[facility] Comment on above:Performed By: #### LIPA #### [facility] [address] [address] [address] Ayden CamChloride [Moles/Vol]99 mmol/ONcxviy07-696Wgd [facility] Comment on above:Performed By: #### LIPA #### [facility] [address] [address] [address] Ayden CamCO2 [Moles/Vol]33.7 mmol/LCritically high21.0-32.0The [facility] HospitalComment on above:Performed By: #### LIPA #### [facility] [address] [address] [address] Ayden CamCreatinine [Mass/Vol]0.62 mg/dLNormal0.55-1.02[facility] HospitalComment on above:Performed By: #### LIPA #### [facility] [address] [address] [address] Ayden KoehlerGFR-AF SOLOMON ISLANDER>60Normal>=60The [facility] HospitalComment on above:Performed By: #### LIPA #### [facility] [address] [address] [address] Ayden KoehlerGFR-NON AF SOLOMON ISLANDER>60Normal>=60The [facility] HospitalComment on above:Performed By: #### LIPA #### [facility] [address] [address] [address] Ayden CamGlobulin (S) [Mass/Vol]3.4 g/dLNormalThe [facility] HospitalComment on above:Performed By: #### LIPA #### [facility] [address] [address] [address] Ayden CamGlucose [Mass/Vol]105 mg/oHKjldiv38-581ElgDunlap Memorial Hospital Comment on above:Performed By: #### LIPA #### [facility] [address] [address] [address] Ayden CamPotassium [Moles/Vol]3.9 mmol/LNormal3.5-5.1The [facility] Comment on above:Performed By: #### LIPA #### [facility] [address] [address] [address] Ayden CamProtein [Mass/Vol]7.0 g/dLNormal6.4-8.2The [facility] Comment on above:Performed By: #### LIPA #### [facility] [address] [address] [address] Ayden CamSodium [Moles/Vol]139 mmol/WEtzpmy642-292EqcDunlap Memorial Hospital Comment on above:Performed By: #### LIPA #### [facility] [address] [place] [address] Dr. Ayden Santos nitrogen [Mass/Vol]28.0 mg/dLCritically high7.0-18.0The [facility] HospitalComment on above:Performed By: #### LIPA #### [facility] [address] [place] [address] Dr. Ayden Santos nitrogen/Creatinine [Mass ratio]45.2 mg/mgNormalThe [facility] HospitalComment on above:Performed By: #### LIPA #### [facility] [address] [place] [address] Dr. Ayden CamAMMONIAon 03-75-8309Znmrbew (P) [Moles/Vol]16 umol/KOstrpa16-07 The [facility] HospitalComment on above:Performed By: #### AMM #### [facility] [address] [place] [address] Dr. Ayden CamAMYLASEon 66-18-3862Ezqkndk [Catalytic activity/Vol]189 U/L Critically vgmu40-103Ldx [facility] HospitalComment on above:Performed By: #### LIPA #### [facility] [address] [place] [address] Dr. Ayden Abdul AUTO DIFFon 98-84-7091BGQT #0.0 103/ulNormal0.0-0.1The [facility] HospitalComment on above:Performed By: #### CBC #### [facility] [address] [place] [address] Dr. Ayden CamBasophils/100 WBC (Bld)0.2 %Normal0.2-2.0The [facility] Comment on above:Performed By: #### CBC #### [facility] [address] [place] [address] Dr. Ayden Steele #0.3 103/ulNormal0.0-0.7The [facility] Hospitalment on above: Performed By: #### CBC #### [facility] [address] [place] [address] Dr. Ayden Koehlerosinophils/100 WBC (Bld)5.2 %Normal0.9-7.0The [facility] Comment on above:Performed By: #### CBC #### [facility] [address] [place] [address] Dr. Ayden Koehlerrythrocyte distribution width (RBC) [Ratio]12.3 %Mdmcwg94.0-15.0 The [facility] HospitalComment on above:Performed By: #### CBC #### [facility] [address] [place] [address] Dr. Ayden CamHematocrit (Bld) [Volume fraction]36.9 %Pmwtaa65.0-48.0The [facility] HospitalComment on above:Performed By: #### CBC #### [facility] [address] [place] [address] Dr. Ayden CamHemoglobin (Bld) [Mass/Vol]12.4 g/uUOlltib27.0-16.0The [facility] HospitalComment on above:Performed By: #### CBC #### [facility] [address] [place] [address] Dr. Ayden Dickson #0.01 10e3/ulNormal0.00-0.03The [facility] HospitalComment on above:Performed By: #### CBC #### [facility] [address] [place] [address] Dr. Ayden CamIG %0.2 %Normal0.0-0.5The [facility] HospitalComment on above: Performed By: #### CBC #### [facility] [address] [place] [address] Dr. Ayden PikeH #1.8 103/ulNormal1.2-3.8The [facility] HospitalComment on above:Performed By: #### CBC #### [facility] [address] [place] [address] Dr. Ayden Workmanmphocytes/100 WBC (Bld)31.3 %Awatmk69.5-60.0The [facility] HospitalComment on above:Performed By: #### CBC #### [facility] [address] [place] [address] Dr. Ayden Melendez DIFF REQNONormalThe [facility] HospitalComment on above: Performed By: #### CBC #### [facility] [address] [place] [address] Dr. Ayden Mccormack (RBC) [Entitic mass]30.0 dkQaoxqg30.7-34.0The [facility] HospitalComment on above:Performed By: #### CBC #### [facility] [address] [place] [address] Dr. Ayden Mccormack (RBC) [Mass/Vol]33.6 g/lRKdzqnu35.9-35.2The [facility] HospitalComment on above:Performed By: #### CBC #### [facility] [address] [place] [address] Dr. Ayden Melton (RBC) [Entitic vol]89.1 xKVqtygz24.0-99.0The [facility] HospitalComment on above:Performed By: #### CBC #### [facility] [address] [place] [address] Dr. Ayden Thornton #0.6 103/ulNormal0.3-0.8The [facility] HospitalComment on above:Performed By: #### CBC #### [facility] [address] [place] [address] Dr. Ayden Atkinsonocytes/100 WBC (Bld)10.1 %Normal1.7-12.0The [facility] Comment on above:Performed By: #### CBC #### [facility] [address] [place] [address] Dr. Ayden Garrett #3.1 103/ulNormal1.4-6.5The [facility] HospitalComment on above:Performed By: #### CBC #### [facility] [address] [place] [address] Dr. Ayden Hongutrophils/100 WBC (Bld)53.0 %Vrhjhp01.0-75.0The [facility] HospitalComment on above:Performed By: #### CBC #### [facility] [address] [place] [address] Dr. Ayden CamPlatelet mean volume (Bld) [Entitic vol]9.4 fLCritically low 9.5-13.5The [facility] HospitalComment on above:Performed By: #### CBC #### [facility] [address] [place] [address] Dr. Ayden CamPLT153 103/yzWdvtwc746-892Ayv [facility] HospitalComment on above: Performed By: #### CBC #### [facility] [address] [place] [address] Dr. Ayden CamRBC4.14 106/ulCritically low4.20-5.40The [facility] HospitalComment on above:Performed By: #### CBC #### [facility] [address] [place] [address] Dr. Ayden CamWBC5.8 103/ulNormal4.0-11.0The [facility] HospitalComment on above: Performed By: #### CBC #### [facility] [address] [place] [address] Dr. Ayden CamLIPASEon 07-30-2142Fcoaoa [Catalytic activity/Vol]166.0 U/LNormal 73.0-393.0The [facility] HospitalComment on above:Performed By: #### LIPA #### [facility] [address] [place] [address] Dr. Ayden CamLIVER PROFILEon 13-48-6376Wmtdwlk [Mass/Vol]3.2 g/dLCritically low3.4-5.0The [facility] HospitalComment on above:Performed By: #### LIPA #### [facility] [address] [place] [address] Dr. Ayden CamAlbumin/Globulin [Mass ratio]1.3 {ratio}NormalThe [facility] HospitalComment on above:Performed By: #### LIPA #### [facility] [address] [place] [address] Dr. Ayden CamALP [Catalytic activity/Vol]88 U/IQxrbfc51-843Oqn [facility] HospitalComment on above:Performed By: #### LIPA #### [facility] [address] [address] [address] Ayden Hancock [Catalytic activity/Vol]66 U/LCritically hpdv06-87Kmb [facility] HospitalComment on above:Performed By: #### LIPA #### [facility] [address] [address] [address] Ayden CamAST [Catalytic activity/Vol]39 U/LCritically tnnh83-27Qex [facility] HospitalComment on above:Performed By: #### LIPA #### [facility] [address] [address] [address] Ayden HackettI, CONJUGATED0.1 mg/dLNormal0.0-0.2The [facility] Comment on above:Performed By: #### LIPA #### [facility] [address] [place] [address] Dr. Ayden Hackettirubin [Mass/Vol]0.4 mg/dLNormal0.2-1.0The [facility] Comment on above:Performed By: #### LIPA #### [facility] [address] [address] [address] Ayden CamGlobulin (S) [Mass/Vol]2.4 g/dLNormalThe [facility] HospitalComment on above:Performed By: #### LIPA #### [facility] [address] [address] [address] Ayden CamProtein [Mass/Vol]5.6 g/dLCritically low6.4-8.2The [facility] HospitalComment on above:Performed By: #### LIPA #### [facility] [address] [address] [address] Ayden CamPROF CHEM 8 (BAS METB)on 77-51-7556Nmicn gap [Moles/Vol]6.8 mmol/LNormalThe [facility] HospitalComment on above:Performed By: #### LIPA #### [facility] [address] [address] [address] Ayden CamCalcium [Mass/Vol]8.6 mg/dLNormal8.5-10.1[facility] Comment on above:Performed By: #### LIPA #### [facility] [address] [address] [address] Ayden CamChloride [Moles/Vol]102 mmol/VEgymak31-805Yue [facility] Comment on above:Performed By: #### LIPA #### [facility] [address] [address] [address] Ayden CamCO2 [Moles/Vol]32.6 mmol/LCritically high21.0-32.0The [facility] HospitalComment on above:Performed By: #### LIPA #### [facility] [address] [address] [address] Ayden CamCreatinine [Mass/Vol]0.61 mg/dLNormal0.55-1.02The [facility] HospitalComment on above:Performed By: #### LIPA #### [facility] [address] [address] [address] Ayden KoehlerGFR-AF SOLOMON ISLANDER>60Normal>=60The [facility] HospitalComment on above:Performed By: #### LIPA #### [facility] [address] [address] [address] Ayden KoehlerGFR-NON AF [place] ISLANDER>60Normal>=60The [facility] HospitalComment on above:Performed By: #### LIPA #### [facility] [address] [address] [address] Ayden CamGlucose [Mass/Vol]91 mg/lUUmhghe50-152MgfDunlap [facility] Hospital Comment on above:Performed By: #### LIPA #### [facility] [address] [address] [address] Ayden CamPotassium [Moles/Vol]3.4 mmol/LCritically low3.5-5.1The [facility] HospitalComment on above:Performed By: #### LIPA #### [facility] [address] [address] [address] Ayden CamSodium [Moles/Vol]138 mmol/BNarxlb752-728Fei [facility] Comment on above:Performed By: #### LIPA #### [facility] [address] [place] [address] Dr. Ayden Santos nitrogen [Mass/Vol]13.0 mg/dLNormal7.0-18.0The [facility] HospitalComment on above:Performed By: #### LIPA #### [facility] [address] [place] [address] Dr. Ayden Santos nitrogen/Creatinine [Mass ratio]21.3 mg/mgNormalThe [facility] HospitalComment on above:Performed By: #### LIPA #### [facility] [address] [place] [address] Dr. Ayden CamAMMONIAon 30-76-9556Gkszchv (P) [Moles/Vol]10 umol/LCritically bzz80-18Aey [facility] HospitalComment on above:Performed By: #### AMM #### [facility] [address] [place] [address] Dr. Ayden CamAMYLASEon 66-02-8859Ctpkbvv [Catalytic activity/Vol]109 U/LNormal 25-115The [facility] HospitalComment on above:Performed By: #### COLE #### [facility] [address] [place] [address] Dr. Ayden Abdul AUTO DIFFon 93-49-5361UAZR #0.0 103/ulNormal0.0-0.1The [facility] HospitalComment on above:Performed By: #### LIPA #### [facility] [address] [place] [address] Dr. Ayden CamBasophils/100 WBC (Bld)0.3 %Normal0.2-2.0The [facility] Comment on above:Performed By: #### LIPA #### [facility] [address] [place] [address] Dr. Ayden Steele #0.3 103/ulNormal0.0-0.7The [facility] HospitalComment on above: Performed By: #### LIPA #### [facility] [address] [address] [address] Ayden Koehlerosinophils/100 WBC (Bld)4.3 %Normal0.9-7.0The [facility] Comment on above:Performed By: #### LIPA #### [facility] [address] [place] [address] Dr. Ayden Koehlerrythrocyte distribution width (RBC) [Ratio]12.2 %Ypynfh90.0-15.0 The [facility] HospitalComment on above:Performed By: #### LIPA #### [facility] [address] [place] [address] Dr. Ayden CamHematocrit (Bld) [Volume fraction]38.9 %Efnjnh59.0-48.0The [facility] HospitalComment on above:Performed By: #### LIPA #### [facility] [address] [place] [address] Dr. Ayden CamHemoglobin (Bld) [Mass/Vol]12.8 g/iPFhcwjf51.0-16.0The [facility] HospitalComment on above:Performed By: #### LIPA #### [facility] [address] [place] [address] Dr. Ayden Dickson #0.01 10e3/ulNormal0.00-0.03The [facility] HospitalComment on above:Performed By: #### LIPA #### [facility] [address] [place] [address] Dr. Ayden Dickson %0.2 %Normal0.0-0.5The [facility] HospitalComment on above: Performed By: #### LIPA #### [facility] [address] [place] [address] Dr. Ayden PikeH #1.9 103/ulNormal1.2-3.8The [facility] HospitalComment on above:Performed By: #### LIPA #### [facility] [address] [place] [address] Dr. Ayden Workmanmphocytes/100 WBC (Bld)31.4 %Llsrik26.5-60.0The [facility] HospitalComment on above:Performed By: #### LIPA #### [facility] [address] [place] [address] Dr. Ayden Melendez DIFF REQNONormalThe [facility] HospitalComment on above: Performed By: #### LIPA #### [facility] [address] [place] [address] Dr. Ayden Mccormack (RBC) [Entitic mass]29.6 ynRtvxid37.7-34.0The [facility] HospitalComment on above:Performed By: #### LIPA #### [facility] [address] [place] [address] Dr. Ayden Mccormack (RBC) [Mass/Vol]32.9 g/uSTllabm51.9-35.2The [facility] HospitalComment on above:Performed By: #### LIPA #### [facility] [address] [place] [address] Dr. Ayden Mccormack (RBC) [Entitic vol]89.8 oWJepxbr95.0-99.0The [facility] HospitalComment on above:Performed By: #### LIPA #### [facility] [address] [place] [address] Dr. Ayden Thornton #0.6 103/ulNormal0.3-0.8The [facility] HospitalComment on above:Performed By: #### LIPA #### [facility] [address] [place] [address] Dr. Ayden Atkinsonocytes/100 WBC (Bld)10.1 %Normal1.7-12.0The [facility] Comment on above:Performed By: #### LIPA #### [facility] [address] [place] [address] Dr. Ayden Garrett #3.2 103/ulNormal1.4-6.5The [facility] HospitalComment on above:Performed By: #### LIPA #### [facility] [address] [place] [address] Dr. Ayden Hongutrophils/100 WBC (Bld)53.7 %Ylhkyp77.0-75.0The [facility] HospitalComment on above:Performed By: #### LIPA #### [facility] [address] [place] [address] Dr. Ayden Jones mean volume (Bld) [Entitic vol]9.7 fLNormal9.5-13.5The [facility] HospitalComment on above:Performed By: #### LIPA #### [facility] [address] [place] [address] Dr. Ayden CamPLT168 103/ruGiqnzs366-343Ona [facility] HospitalComment on above: Performed By: #### LIPA #### [facility] [address] [place] [address] Dr. Ayden CamRBC4.33 106/ulNormal4.20-5.40The [facility] HospitalComment on above:Performed By: #### LIPA #### [facility] [address] [place] [address] Dr. Ayden CamWBC6.0 103/ulNormal4.0-11.0The [facility] HospitalComment on above: Performed By: #### LIPA #### [facility] [address] [place] [address] Dr. Ayden CamLIPASEon 26-63-7986Dzginv [Catalytic activity/Vol]151.0 U/LNormal 73.0-393.0The [facility] HospitalComment on above:Performed By: #### LIPA #### [facility] [address] [place] [address] Dr. Ayden Asencio PROFILEon 39-58-7201Ckovyuh [Mass/Vol]3.2 g/dLCritically low3.4-5.0The [facility] HospitalComment on above:Performed By: #### LACT #### [facility] [address] [place] [address] Dr. Ayden CamAlbumin/Globulin [Mass ratio]1.1 {ratio}NormalThe [facility] HospitalComment on above:Performed By: #### LACT #### [facility] [address] [place], [place] [id number] Dr. Ayden Tobar [Catalytic activity/Vol]82 U/TIbjsuy59-348Jvp [facility] HospitalComment on above:Performed By: #### LACT #### [facility] [address] [address] [address] Ayden CoburnT [Catalytic activity/Vol]70 U/LCritically fyxc05-05Wap [facility] HospitalComment on above:Performed By: #### LACT #### [facility] [address] [address] [address] Ayden CamAST [Catalytic activity/Vol]36 U/WAlqhyl29-73Oby [facility] HospitalComment on above:Performed By: #### LACT #### [facility] [address] [place] [address] Dr. Ayden Sears, CONJUGATED0.1 mg/dLNormal0.0-0.2The [facility] Comment on above:Performed By: #### LACT #### [facility] [address] [place] [address] Dr. Ayden Hackettirubin [Mass/Vol]0.3 mg/dLNormal0.2-1.0[facility] Comment on above:Performed By: #### LACT #### [facility] [address] [place] [address] Dr. Ayden CamGlobulin (S) [Mass/Vol]3.0 g/dLNormalThe [facility] HospitalComment on above:Performed By: #### LACT #### [facility] [address] [place] [address] Dr. Ayden CamProtein [Mass/Vol]6.2 g/dLCritically low6.4-8.2The [facility] HospitalComment on above:Performed By: #### LACT #### [facility] [address] [place] [address] Dr. Ayden CamPROF CHEM 8 (BAS METB)on 63-46-3543Avdsz gap [Moles/Vol]9.5 mmol/LNormalThe [facility] HospitalComment on above:Performed By: #### BMP #### [facility] [address] [address] [address] Ayden CamCalcium [Mass/Vol]8.9 mg/dLNormal8.5-10.1[facility] Comment on above:Performed By: #### BMP #### [facility] [address] [address] [address] Ayden CamChloride [Moles/Vol]105 mmol/GZphyjs87-985FjdDunlap Memorial Hospital Comment on above:Performed By: #### BMP #### [facility] [address] [address] [address] Ayden CamCO2 [Moles/Vol]29.6 mmol/EJasjzd47.0-32.0The [facility] Comment on above:Performed By: #### BMP #### [facility] [address] [place] [address] Dr. Ayden CamCreatinine [Mass/Vol]0.56 mg/dLNormal0.55-1.02The [facility] HospitalComment on above:Performed By: #### BMP #### [facility] [address] [address] [address] Hensley ChangEGFR-AF SOLOMON ISLANDER>60Normal>=60Dun[facility] Memorial HospitalComment on above:Performed By: #### BMP #### [facility] [address] [place] [address] Dr. Ayden KoehlerGFR-NON AF SOLOM[place] ISLANDER>60Normal>=60The [facility] HospitalComment on above:Performed By: #### BMP #### [facility] [address] [address] [address] Ayden CamGlucose [Mass/Vol]88 mg/nTLjrxfx83-674DiyDunlap Memorial Hospital Comment on above:Performed By: #### BMP #### [facility] [address] [address] [address] Ayden CamPotassium [Moles/Vol]4.1 mmol/LNormal3.5-5.1[facility] Comment on above:Performed By: #### BMP #### [facility] [address] [address] [address] Ayden Nguyendium [Moles/Vol]140 mmol/KNcgiab803-127GryDunlap Memorial Hospital Comment on above:Performed By: #### BMP #### [facility] [address] [address] [address] Ayden CamUrea nitrogen [Mass/Vol]15.0 mg/dLNormal7.0-18.0The [facility] HospitalComment on above:Performed By: #### BMP #### [facility] [address] [address] [address] Ayden Santos nitrogen/Creatinine [Mass ratio]26.8 mg/mgNoBrown Memorial HospitalComment on above:Performed By: #### BMP #### [facility] [address] [address] [address] Ayden Hallman Jhony [id number] ABDEXAMINATION: US ABD HISTORY: Abdominal pain ; [...] Electronically authenticated by: RONAN TORIBIO Date: 2022-10-05 09:52[facility]ima [facility] HospitalXR KUB 1 VIEWon [id number] KUB 1 VIEWEXAMINATION: XR KUB 1 VIEW [...] authenticated by: RONAN TORIBIO Date: 2022-10-05 09:55NormalThe [facility] HospitalAMYLASEon 57-31-3965Upwgytt [Catalytic activity/Vol]124 U/L Critically hxai71-829Nyu [facility] HospitalComment on above:Performed By: #### LIPA, COLE, CMP #### [facility] [address] [address] [address] Ayden Abdul AUTO DIFFon [id number] #0.0 103/ulNormal0.0-0.1The [facility] HospitalComment on above:Performed By: #### LIPA #### [facility] [address] [place] [address] Dr. Ayden Larsensophils/100 WBC (Bld)0.3 %Normal0.2-2.0[facility] Comment on above:Performed By: #### LIPA #### [facility] [address] [place] [address] Dr. Ayden Steele #0.2 103/ulNormal0.0-0.7The [facility] HospitalComment on above: Performed By: #### LIPA #### [facility] [address] [place] [address] Dr. Ayden Koehlerosinophils/100 WBC (Bld)2.9 %Normal0.9-7.0[facility] Comment on above:Performed By: #### LIPA #### [facility] [address] [place] [address] Dr. Ayden Koehlerrythrocyte distribution width (RBC) [Ratio]12.3 %Ufvonq76.0-15.0 The [facility] HospitalComment on above:Performed By: #### LIPA #### [facility] [address] [place] [address] Dr. Ayden CamHematocrit (Bld) [Volume fraction]42.0 %Pjeonm00.0-48.0The [facility] HospitalComment on above:Performed By: #### LIPA #### [facility] [address] [place] [address] Dr. Ayden CamHemoglobin (Bld) [Mass/Vol]14.3 g/kINcrdzk98.0-16.0The [facility] HospitalComment on above:Performed By: #### LIPA #### [facility] [address] [place] [address] Dr. Ayden Dickson #0.02 10e3/ulNormal0.00-0.03The [facility] HospitalComment on above:Performed By: #### LIPA #### [facility] [address] [place] [address] Dr. Ayden Dickson %0.3 %Normal0.0-0.5The [facility] HospitalComment on above: Performed By: #### LIPA #### [facility] [address] [place] [address] Dr. Ayden Figueroa #1.7 103/ulNormal1.2-3.8The [facility] HospitalComment on above:Performed By: #### LIPA #### [facility] [address] [place] [address] Dr. Ayden Pikehocytes/100 WBC (Bld)22.5 %Wyuwdy29.5-60.0The [facility] HospitalComment on above:Performed By: #### LIPA #### [facility] [address] [place] [address] Dr. Ayden ChinoUAL DIFF REQNONormalThe [facility] HospitalComment on above: Performed By: #### LIPA #### [facility] [address] [place] [address] Dr. Ayden Salgado (RBC) [Entitic mass]30.1 mrDguaxn07.7-34.0The [facility] HospitalComment on above:Performed By: #### LIPA #### [facility] [address] [place] [address] Dr. Ayden Mccormack (RBC) [Mass/Vol]34.0 g/wOYoinyw57.9-35.2The [facility] HospitalComment on above:Performed By: #### LIPA #### [facility] [address] [place] [address] Dr. Ayden MccormackV (RBC) [Entitic vol]88.4 eKQeawbe26.0-99.0The [facility] HospitalComment on above:Performed By: #### LIPA #### [facility] [address] [place] [address] Dr. Ayden Thornton #0.5 103/ulNormal0.3-0.8The [facility] HospitalComment on above:Performed By: #### LIPA #### [facility] [address] [place] [address] Dr. Ayden Atkinsonocytes/100 WBC (Bld)6.0 %Normal1.7-12.0The [facility] Comment on above:Performed By: #### LIPA #### [facility] [address] [place] [address] Dr. Ayden Garrett #5.2 103/ulNormal1.4-6.5The [facility] HospitalComment on above:Performed By: #### LIPA #### [facility] [address] [place] [address] Dr. Ayden Hongutrophils/100 WBC (Bld)68.0 %Fsofyv81.0-75.0The [facility] HospitalComment on above:Performed By: #### LIPA #### [facility] [address] [place] [address] Dr. Ayden Limonlet mean volume (Bld) [Entitic vol]9.6 fLNormal9.5-13.5The [facility] HospitalComment on above:Performed By: #### LIPA #### [facility] [address] [place] [address] Dr. Ayden CamPLT183 103/dvAuhjzs932-194Tlp [facility] HospitalComment on above: Performed By: #### LIPA #### [facility] [address] [place] [address] Dr. Ayden CamRBC4.75 106/ulNormal4.20-5.40The [facility] HospitalComment on above:Performed By: #### LIPA #### [facility] [address] [place] [address] Dr. Ayden CamWBC7.6 103/ulNormal4.0-11.0The [facility] HospitalComment on above: Performed By: #### LIPA #### [facility] [address] [place] [address] Dr. Ayden CamCovid-19 PCR ([facility])on 13-82-3650DCTK-CoV-2 (COVID-19) RNA LOWELL+probe Ql (Unsp spec)Not detectedNormalNOT DETECTEDThe [facility] Comment on above:Result Comment: When diagnostic [...] for this test is supported by the [employer] Tender of Health and Human Service's declaration that [...] longer be used).Performed By: #### LIPA #### [facility] [address] [place] [address] Dr. Hensley ChangEMegan URINE PROFILEon 00-53-3054Pwhjjqabb Ql (U)NegativeNormal NEGATIVEThe [facility] HospitalComment on above:Performed By: #### LACT #### [facility] [address] [place] [address] Dr. Ayden CamClarity (U)CLEARNormalCLEARDunlap Memorial HospitalComment on above: Performed By: #### LACT #### [facility] [address] [address] [address] Ayden Santos (U)LT. YELLOWNormalYELLOWDunlap Memorial HospitalComment on above:Performed By: #### LACT #### [facility] [address] [address] [address] Ayden Pham micrscopic examination will be performed if indicated. NormalThe [facility] City HospitalComment on above:Performed By: #### LACT #### [facility] [address] [address] [address] Ayden CamGlucose Ql (U)NegativeNormalNEGATIVEDunlap Memorial HospitalComment on above:Performed By: #### LACT #### [facility] [address] [place] [address] Dr. Ayden CamHemoglobin Ql (U)NegativeNormalNEGATIVECherrington Hospital on above:Performed By: #### LACT #### [facility] [address] [address] [address] Ayden CamKetones Ql (U)NegativeNormalNEGATIVEDunlap Memorial HospitalComment on above:Performed By: #### LACT #### [facility] [address] [place] [address] Dr. Ayden CamLEUKOCYTESNegativeNormalNEGATIVEDunlap Memorial HospitalComment on above:Performed By: #### LACT #### [facility] [address] [address] [address] Ayden CamNitrite Ql (U)NegativeNormalNEGATIVEDunlap Memorial HospitalComment on above:Performed By: #### LACT #### [facility] [address] [address] [address] Ayden CampH (U)8.5 [pH]Normal5-9[facility] HospitalComment on above: Performed By: #### LACT #### [facility] [address] [address] [address] Ayden CamSPEC GRAVITY1.452Iegbrv4.005-<=1.025The [facility] HospitalComment on above:Performed By: #### LACT #### [facility] [address] [place] [address] Dr. Ayden Clark PROTEINNegativeNormalNEGATIVE/ TRACEThe [facility] Comment on above:Performed By: #### LACT #### [facility] [address] [place] [address] Dr. Ayden Alcala MICRO INDNOT INDICATEDNormalThe [facility] HospitalComment on above:Performed By: #### LACT #### [facility] [address] [place] [address] Dr. Ayden CamUrobilinogen Qn (U)0.2 {Peggy'U}/dLNormal0.2 - 1.0The [facility] HospitalComment on above:Performed By: #### LACT #### [facility] [address] [place] [address] Dr. Ayden CamLACTATE/LACTIC ACIDon 92-79-4617Jtsfhwc [Moles/Vol]0.8 mmol/L Normal0.4-1.9The [facility] HospitalComment on above:Performed By: #### LACT #### [facility] [address] [place] [address] Dr. Ayden CamLIPASEon 94-31-2600Flxjpq [Catalytic activity/Vol]170.0 U/LNormal 73.0-393.0The [facility] HospitalComment on above:Performed By: #### LACT #### [facility] [address] [place] [address] Dr. Ayden CamPROF 14(COMP METB)on 77-44-7870Dcwksxu [Mass/Vol]3.8 g/dLNormal 3.4-5.0The [facility] HospitalComment on above:Performed By: #### LACT #### [facility] [address] [place] [address] Dr. Ayden CamAlbumin/Globulin [Mass ratio]1.1 {ratio}NormalThe [facility] HospitalComment on above:Performed By: #### LACT #### [facility] [address] [address] [address] Ayden CoburnP [Catalytic activity/Vol]101 U/TBvcwjm35-559Kdq [facility] HospitalComment on above:Performed By: #### LACT #### [facility] [address] [address] [address] Ayden CoburnT [Catalytic activity/Vol]94 U/LCritically ubjm01-29Fxl [facility] HospitalComment on above:Performed By: #### LACT #### [facility] [address] [address] [address] Ayden Terrell gap [Moles/Vol]11.1 mmol/LNormalThe [facility] Comment on above:Performed By: #### LACT #### [facility] [address] [address] [address] yAden CamAST [Catalytic activity/Vol]59 U/LCritically tvht84-69Kjh [facility] HospitalComment on above:Performed By: #### LACT #### [facility] [address] [place] [address] Dr. Ayden CamBilirubin [Mass/Vol]0.3 mg/dLNormal0.2-1.0[facility] Comment on above:Performed By: #### LACT #### [facility] [address] [place] [address] Dr. Ayden CamCalcium [Mass/Vol]9.5 mg/dLNormal8.5-10.1[facility] Comment on above:Performed By: #### LACT #### [facility] [address] [place] [address] Dr. Ayden CamChloride [Moles/Vol]99 mmol/XBtjmnf62-263Idy [facility] Comment on above:Performed By: #### LACT #### [facility] [address] [address] [address] Ayden CamCO2 [Moles/Vol]29.7 mmol/JJwgmfi55.0-32.0[facility] Comment on above:Performed By: #### LACT #### [facility] [address] [place] [address] Dr. Ayden Cuellaratinine [Mass/Vol]0.61 mg/dLNormal0.55-1.02The [facility] HospitalComment on above:Performed By: #### LACT #### [facility] [address] [place] [address] Dr. Ayden KoehlerGFR-AF SOLOM[place] ISLANDER>60Normal>=60The [facility] HospitalComment on above:Performed By: #### LACT #### [facility] [address] [address] [address] Ayden KoehlerGFR-NON AF [place] ISLANDER>60Normal>=60The [facility] HospitalComment on above:Performed By: #### LACT #### [facility] [address] [place] [address] Dr. Ayden CamGlobulin (S) [Mass/Vol]3.4 g/dLNormalThe [facility] HospitalComment on above:Performed By: #### LACT #### [facility] [address] [place] [address] Dr. Ayden CamGlucose [Mass/Vol]111 mg/dLCritically swxb69-053Gms [facility] HospitalComment on above:Performed By: #### LACT #### [facility] [address] [place] [address] Dr. Ayden CamPotassium [Moles/Vol]3.8 mmol/LNormal3.5-5.1[facility] Comment on above:Performed By: #### LACT #### [facility] [address] [place] [address] Dr. Ayden CamProtein [Mass/Vol]7.2 g/dLNormal6.4-8.2[facility] Comment on above:Performed By: #### LACT #### [facility] [address] [place] [address] Dr. Ayden CamSodium [Moles/Vol]136 mmol/YHpjjti780-494Cfv [facility] Comment on above:Performed By: #### LACT #### [facility] [address] [place] [address] Dr. Ayden CamUrea nitrogen [Mass/Vol]23.0 mg/dLCritically high7.0-18.0[facility] HospitalComment on above:Performed By: #### LACT #### [facility] [address] [place] [address] Dr. Ayden CamUrea nitrogen/Creatinine [Mass ratio]37.7 mg/mgLima Memorial HospitalComment on above:Performed By: #### LACT #### [facility] [address] [place] [address] Dr. Ayden Negrete, HIGH SENSITIVITYon 33-83-0202DZFGAP8.9 pg/mLNormal 4.0-51.3The [facility] HospitalComment on above:Result Comment: CUT-OFF POINTS HAVE BEEN ESTABLISHED BASED ON THE FOURTH UNIVERSAL DEFINITIONS OF MYOCARDIAL INFARCTION. THE UPPER REFERENCE LIMIT (URL) OF TROPONIN, DEFINED THE 99TH PERCENTILE OF cTnI DISTRIBUTION IN A REFERENCE POPULATION, HAS BEEN CONFIRMED THE DECISION THRESHOLD FOR MD DIAGNOSIS.Performed By: #### LACT #### [facility] [address] [place] [address] Dr. Ayden CamLIPID PROFILEon 91-95-7182IAIU-HDL RATIO NORMSLouis Stokes Cleveland VA Medical CenterComment on above:Result Comment: 3.3 - 4.4 LOW RISK 4.4 - 7.1 AVERAGE RISK 7.1 - 11.0 MODERATE RISK >11.0 HIGH RISKPerformed By: #### LIPA #### [facility] [address] [place] [address] Dr. Ayden CamCholesterol [Mass/Vol]116 mg/dLNormal<=200[facility] Comment on above:Performed By: #### LIPA #### [facility] [address] [place] [address] Dr. Ayden CamCholesterol in HDL [Mass/Vol]59 mg/uIDolbim89-22DjsDunlap Memorial HospitalComment on above:Performed By: #### LIPA #### [facility] [address] [place] [address] Dr. Ayden Leroyesterol in LDL [Mass/Vol]34.0 mg/dLLima Memorial HospitalComment on above:Performed By: #### LIPA #### [facility] [address] [address] [address] Ayden CamCholesterol.total/Cholesterol in HDL [Mass ratio]2.0 {ratio} NormalDunlap Memorial HospitalComment on above:Performed By: #### LIPA #### [facility] [address] [address] [address] Ayden CostelloL NORMAL> or = 60 mg/dl - LOW CARDIOVASCULAR RISK <40 mg/dl - HIGH CARDIOVASCULAR RISKLima Memorial HospitalComment on above:Performed By: #### LIPA #### [facility] [address] [address] [address] Ayden CamLDL CALC NORMALSEE [facility] HospitalCombeaumont hospital on above:Result Comment: <100 mg/dl OPTIMAL 100 - 129 mg/dl NEAR OR ABOVE OPTIMAL 130 - 159 mg/dl BORDERLINE HIGH 160 - 189 mg/dl HIGH >190 mg/dl VERY HIGH Performed By: #### LIPA #### [facility] [address] [place] [address] Dr. Ayden CamTriglyceride [Mass/Vol]115 mg/dLNormal<=150[facility] Comment on above:Performed By: #### LIPA #### [facility] [address] [place] [address] Dr. Ayden CamVLDL CALC23.0 mg/dLNoBrown Memorial HospitalComment on above: Performed By: #### LIPA #### [facility] [address] [address] [address] Ayden CamVITAMIN D 25 OHon 89-93-7880EHQ D 25-OH89.3 ng/mLNormalDunlap Memorial HospitalCombeaumont hospital on above:Performed By: #### VITAD #### [facility] [address] [place] [address] Dr. Aydne CamVIT D RANGESSEE [facility] HospitalComment on above: Result Comment: <20 ng/mL Vit D deficient 20 - <30 ng/mL Vit D insufficient 30 - 100 ng/mL Vit D sufficient >100 ng/mL Potential ToxicityPerformed By: #### VITAD #### [facility] [address] [address] [address] Ayden Farrell Visit (Cardiology)on 58-72-0257Riebke-up visit Diagnoses/Problems Assessed Atherosclerosis of coronary artery of quechan heart without angina pectoris (414.01) (I25.10) History of coronary artery bypass graft (V45.81) (Z95.1) Ischemic cardiomyopathy (414.8) (I25.5) Hyperlipidemia (272.4) (E78.5) Essential hypertension, benign (401.1) (I10) Never a smoker Overweight with body mass index (BMI) of 26 to 26.9 in adult (278.02,V85.22) (E66.3,Z68.26) Paroxysmal SVT (supraventricular tachycardia) (427.0) (I47.1) Orders Atherosclerosis of coronary artery of quechan heart without angina pectoris, Essential hypertension, benign, Hyperlipidemia Basic Metabolic Panel; Status:Active - Retrospective Authorization; Requested for:[id number]; Lipid Panel; Status:Active - Retrospective Authorization; Requested for:[id number]; Overweight with body mass index (BMI) of 26 to 26.9 in adult Healthy Weight Tips; Status:Complete - Retrospective Authorization; Done: [id number] Some eating tips that can help you lose weight.; Status:Complete - Retrospective Authorization; Done: [id number] SocHx: Never a smoker Tobacco Use Screening; Status:Complete; Done: [id number] Patient Instructions Please bring all medicines, vitamins, [...] She has a history of prior inferior MD, prior PCI with subsequent three-vessel CABG and [...] CHEST PAIN.CALL 911 IF PAIN PERSISTS. Nyamyc [id number] UNIT/GM External Powderapply topically to affected area [...] s (more content not included)...NormalUH TouchworksTobacco Screening.on 40-99-9323Ddbrp depression screening assessmentNoVeterans Health Administration 7fgame DO Work Phone: Fall risk assessmenta) No falls within the last year [facility] 7fgame DO Work Phone: Tobacco use status CPHSb) NoMLourdes Counseling Center [employer] DO Work Phone: MRI Ankle w/o Lefton 30-82-0114SME Ankle w/o Left HISTORY: Dog jumped on [...] and signed by Wilder Arango on 08/01/2022 1102NormalNortMiddletown Hospital SpecialistTobacco Screening.on 10-81-3228Lqmqvkz use status CPHSb) [facility] [address] DO Work Phone: Vital Signs Date TimeVital SignValuePerforming AxpykuktdHfviuqcr53-09-8745 11:45-0400Body jnnmcu265 cmMattmalik RINALDI Work Phone: NOSt. Louis VA Medical CenterQjnzhmpqmt89-23-4720 11:45-0400Body mass index (BMI) [Ratio]30.82 kg/h1Wtjhoovlilli RINALDI Work Phone: NOSt. Louis VA Medical CenterBdpknwctws40-74-1095 11:45-0400Body bhudop99.93 kgMalilli RINALDI Work Phone: [facility] HospitalBtnyfqhgzs61-42-2893 09:53-0500Body fxbzeo119 cm Celso Garibay DO Work Phone: [facility]12-06-2024 09:53-0500 Body mass index (BMI) [Ratio]30.11 kg/u9UfwrqhlCelso Garibay DO Work Phone: [facility]12-06-2024 09:53-0500 Body cnmaex54.11 kgCelso Garibay DO Work Phone: [facility]12-06-2024 09:53-0500 Diastolic blood mm[Hg]Celso Garibay DO Work Phone: [facility]12-06-2024 09:53-0500 Heart rate66 /minCelso Garibay DO Work Phone: [facility]12-06-2024 09:53-0500 Systolic blood xbtlwxbo644 mm[Hg]Celso Cintrondon DO Work Phone: [phone]11-19-2024 01:03-0500 Diastolic blood ojekedrc94 mm[Hg]Ashley Grigsby MD Work Phone: [phone])[address]11-19-2024 01:03-0500 Heart rate60 /Alfonso Grigsby MD Work Phone: [phone]11-19-2024 01:03-0500 Respiratory rate20 /Alfonso Grigsby MD Work Phone: [phone]11-19-2024 01:03-0500 SaO2% (BldA) [Mass fraction]96 %Ashley Grigsby MD Work Phone: [phone]11-19-2024 01:03-0500 Systolic blood lsjfabni477 mm[Hg]Ashley Grigsby MD Work Phone: [phone])140-[address] [place], [place] [address]11-18-2024 20:55-0500 Body pepbsb845.02 cmAshley Grigsby MD Work Phone: [phone]11-18-2024 20:55-0500 Body lcmhdtymrnf14.4 [degF]Ashley Grigsby MD Work Phone: [phone]11-18-2024 20:55-0500 Body johvhr01.5 kgAshley Grigsby MD Work Phone: [phone]11-13-2024 12:21-0500 Body cmCelso Garibay DO Work Phone: [facility]11-13-2024 12:21-0500 Body mass index (BMI) [Ratio]30.47 kg/e5FpnupsjCelso Garibay DO Work Phone: [phone]11-13-2024 12:21-0500 Body rjgigp39.02 kgWideshaun Garibay DO Work Phone: [facility]11-13-2024 12:21-0500 Diastolic blood uxdviqgl48 mm[Hg]Celso Garibay DO Work Phone: [facility]11-13-2024 12:21-0500 Heart rate76 /Evan Garibay DO Work Phone: [facility]11-13-2024 12:21-0500 Systolic blood krsqhnam737 mm[Hg]Celso Garibay DO Work Phone: [facility]11-05-2024 11:08-0500 Blood Pressure LocationJENNIFER SALENA [facility]11-05-2024 11:08-0500Body .6 [degF] [place] [facility]11-05-2024 11:08-0500Diastolic blood kdodgpdk48 mm[Hg] [place] [facility]11-05-2024 11:08-0500Heart rate68 /minJENNIFER SALENA [facility]11-05-2024 11:08-0500Respiratory rate16 /minJENNIFER SALENA [facility]11-05-2024 11:08-0500Systolic blood eyjdsudb491 mm[Hg] [place] [facility]07-11-2024 15:08-0400Blood Pressure LocationJENNIFER SALENA [facility]07-11-2024 15:08-0400Diastolic blood taogqjsf58 mm[Hg]JENNIFER MARTINO [facility]07-11-2024 15:08-0400Heart rate75 /minJENNIFER SALENA [facility]07-11-2024 15:08-0400Respiratory rate16 /minJENNIFER SALENA [facility]07-11-2024 15:08-0400Systolic blood ruzwluso540 mm[Hg]JENNIFER MARTINO [facility]05-31-2024 11:15-0400Body cmMet[address] 02-29-2024 11:15-0400Body mass index (BMI) [Ratio]29.58 kg/g1Qlkmp[address]05-31-2024 11:15-0400Body dovckn30.[address]04-18-2024 16:03-0400Body blyiks355.3 cmStephanie Berger MD PhD Work Phone: [facility]04-18-2024 16:03-0400Body mass index (BMI) [Ratio]30.16 kg/r8WtmoiStephanie Berger MD PhD Work Phone: [facility]04-18-2024 16:03-0400Body .47 kgStephanie Berger MD PhD Work Phone: [facility]11-14-2023 15:29-0500Body .3 cmCelso Garibay DO Work Phone: [facility] System11-14-2023 15:29-0500 Body mass index (BMI) [Ratio]28.07 kg/r9JzojvhuCelso Garibay DO Work Phone: [facility]11-14-2023 15:29-0500 Body dsfurf14.03 kgWideshaun Garibay DO Work Phone: [facility]11-14-2023 15:29-0500 Diastolic blood fwoecwee52 mm[Hg]Celso Garibay DO Work Phone: [facility]11-14-2023 15:29-0500 Heart rate56 /minWideshaun Garibay DO Work Phone: [facility]11-14-2023 15:29-0500 Systolic blood uifugxen145 mm[Hg]Celso Garibay DO Work Phone: [facility]09-18-2023 15:15-0400 Diastolic blood bugrjtwl41 mm[Hg]Gaby Jenkinsy Tello DO Work Phone: [facility]09-18-2023 15:15-0400Heart rate70 /minElpidiomen Deuce Tello DO Work Phone: [facility]09-18-2023 15:15-0400 Respiratory rate18 /minCarmen Deuce Tello DO Work Phone: [facility]09-18-2023 15:15-7219ZpT2% (BldA) [Mass fraction]96 %Gaby Deuce Tello DO Work Phone: [facility]09-18-2023 15:15-0400Systolic blood ibcpimdv137 mm[Hg]Gaby Deuce Tello DO Work Phone: [facility]09-18-2023 14:36-0400Body jlebdbvmjfy00 [degF]Gaby Deuce Tello DO Work Phone: [facility]09-18-2023 13:30-0400Body cmCarmen Deuce Tello DO Work Phone: [facility]09-18-2023 13:30-0400Body mass index (BMI) [Ratio]27.03 kg/i3Rxihjd Deuce Tello DO Work Phone: [facility]09-18-2023 13:30-0400Body zifizg81.22 kgCarkizzy Tello DO Work Phone: [facility]02-02-2023 15:02-0500Diastolic blood hzrkawdf24 mm[Hg]MD Ashley Grigsby Work Phone: 1(244)078-[address] [place], [place] 8381202-02-2023 15:02-0500 Heart rate78 /minMD Ashley Gordilloy Work Phone: [phone])738-[address] [place], [place] 8381202-02-2023 15:02-0500 Respiratory rate18 /minMD Ramirez Hoy Work Phone: 1([phone])[facility]-[address] [place], [place] 8381202-02-2023 15:02-0500 SaO2% (BldA) [Mass fraction]100 %MD Ashley Grigsby Work Phone: 1(200)[facility]-[address] [place], [place] 8381202-02-2023 15:02-0500 Systolic blood jtansvba939 mm[Hg]MD Ashley Grigsby Work Phone: 1(981)516-[address] [place], [place] 8381202-02-2023 13:20-0500 Body .02 cmMD Ashley Hoy Work Phone: 1(277)[facility]-[address] [place], [place] 8381202-02-2023 13:20-0500 Body khwxooxjwna16.2 [degF]MD Ashley Grigsby Work Phone: 1(308)[facility]-[address] [place], [place] 8381202-02-2023 13:20-0500 Body nqveqi61.78 kgMD Ashley Grigsby Work Phone: 1(007)[address]02-01-2023 13:26-0500 Diastolic blood egkyrjsx33 mm[Hg]MD Ashley Grigsby Work Phone: 1(218)[facility]-[address] [place], [place] 8381202-01-2023 13:26-0500 Heart rate59 /minMD Ashley Grigsby Work Phone: 1(724)[address]02-01-2023 13:26-0500 Respiratory rate20 /minMD Ashley Gordilloy Work Phone: 1(226)216-[address] [place], [place] 8381202-01-2023 13:26-0500 SaO2% (BldA) [Mass fraction]99 %MD Ashley Grigsby Work Phone: 1(059)835-[address] [place], [place] 8381202-01-2023 13:26-0500 Systolic blood jnkofldb681 mm[Hg]MD Ashley Grigsby Work Phone: 1(423)861-[address] [place], [place] 8381202-01-2023 10:53-0500 Body rmlnma914.02 cmMD Ashley Grigsby Work Phone: 1(842)030-[address] [place], [place] 8381202-01-2023 10:53-0500 Body nnrgjhguktw73.7 [degF]MD Ashley Grigsby Work Phone: 1(022)775-[address] [place], [place] 8381202-01-2023 10:53-0500 Body ticetb60.68 kgMD Ashley Grigsby Work Phone: 1(845)[address]01-24-2023 15:45-0500 Body ghldue481.38 cmImad Asaad Other [employer] Other 01-24-2023 15:45-0500Body mass index (BMI) [Ratio] 24.28 kg/m2Imad Asaad Other [employer] Other 01-24-2023 15:45-0500Body .69 kgImad Asaad Other [employer] Other 01-24-2023 15:45-0500Diastolic blood wpmexpfb82 mm[Hg] Imad Asaad Other [employer] Other 01-24-2023 15:45-0500Systolic blood jeikfckg458 mm[Hg] Imad Asaad Other [employer] Other 12-20-2022 00:00-871689 1Douglas M Hoy Work Phone: [phone]-Guizv [facility] DO Work Phone: Comment on above:OBRRF00-19-9272 15:23-0500Body height 160.02 cmDougcholo Clements Hoy Work Phone: [phone]-Lqlaw [facility] DO Work Phone: 1(672) 217-296611-15-2022 15:23-0500Body mass index (BMI) [Ratio] 26.22 kg/r0Jqjkhmt M Hoy Work Phone: [phone]-Aptpq [facility] DO Work Phone: 1(957) [phone] 15:23-0500Body surface area Derived from formula1.7 s4Wbybkos M Hoy Work Phone: [phone]-Hwpzv [facility] DO Work Phone: 1(567) 274-622011-15-2022 15:23-0500Body .13 kgDougcholo Clements Hoy Work Phone: [phone]-Sbtka [facility] DO Work Phone: 1(636) 381-917411-15-2022 15:23-0500Diastolic blood yyhhiseb08 mm[Hg] Ashley M Hoy Work Phone: [phone]-Cjjqv [facility] DO Work Phone: 1(958) 660-899911-15-2022 15:23-0500Heart rate80 /minDouglas M Hoy Work Phone: [phone]-Mhtzw [facility] DO Work Phone: 1(345) 475-762211-15-2022 15:23-0500Systolic blood gmsxzaxc972 mm[Hg] Ashely M Hoy Work Phone: [phone]-Nnofq [facility] DO Work Phone: 1(716) 168-817409-02-2022 08:12-0400Blood Pressure LocationPatrick ACRRILLO [facility]09-02-2022 08:12-0400Diastolic blood hbudlika87 mm[Hg]Santiago CARRILLO [facility]09-02-2022 08:12-0400Heart rate60 /minPatrick CARRILLO [facility]09-02-2022 08:12-0400Respiratory rate16 /minPatrick CARRILLO [facility]09-02-2022 08:12-0400Systolic blood eucltvqt196 mm[Hg]Santiago CARRILLO [facility]11-17-2021 09:47-0500Body yurugi929.02 cmDougcholo Clements Hoy Work Phone: [phone]-Egwcn [facility] DO Work Phone: 1([phone] 09:47-0500Body mass index (BMI) [Ratio] 25.01 kg/r2Ijwxkfy M Hoy Work Phone: [phone]-Hjxlm [facility] DO Work Phone: 1(256)[phone] 09:47-0500Body surface area Derived from formula1.67 g5Lnwunar M Hoy Work Phone: [phone]-Neyto [facility] DO Work Phone: 1(389)[phone] 09:47-0500Body .05 kgDouglas M Hoy Work Phone: [phone]-Nzqdc [facility] DO Work Phone: 1([phone] 09:47-0500Diastolic blood gbpbekcr20 mm[Hg] Ashley Elias Hoy Work Phone: [phone]-Npcxc [facility] DO Work Phone: 1([phone] 09:47-0500Heart rate72 /minDouglkimberly Clements Hoestefani Work Phone: [phone]-Csvme [facility] DO Work Phone: 1(813) 178-403411-17-2021 09:47-0500Systolic blood zvqfgiqk355 mm[Hg] Ashley Grigsby Work Phone: [phone]-Rzktx [facility] DO Work Phone: Encounters Encounter DateEncounter TypeCare ProviderFacilityStart: 91-87-3326vqqavdawnq Santiago CARRILLOFacility:EU BellevueStart: 06-23-2025 End: 51-35-2510Jtvqgn flowsheetJr. Bridgett Vann Stepanic DO Work Phone: [facility]icsStart: 06-23-2025 End: 35-27-6564Mjfrlt flowsheetJr. Bridgett Vann Stepanic DO Work Phone: [facility] [place] [facility]edicsStart: 06-23-2025 End: 45-67-7885djiemfmlxbHY., BRIDGETT Jones AvailableStart: 06-23-2025 End: 71-92-5487Oguhdv outpatient visit 15 minutesJr. Bridgett Sinha DO Work Phone: [facility] [place] OrthopaedicsComment on above:Tendonitis of wrist, right; Right wrist painStart: 06-16-2025 End: 57-06-9982tcmynwblesCY., BRIDGETT Jones AvailableStart: 06-02-2025 End: 44-22-7699Lbqzux flowsheetJr. Bridgett Vann Stepanic DO Work Phone: [facility] [place] [facility]icsStart: 06-02-2025 End: 64-85-2781Lcfabf flowsheetJr. Bridgett Vann Stepanic DO Work Phone: [facility] [place] [facility]edicsStart: 06-02-2025 End: 67-37-5096Zggnlr outpatient visit 15 minutesJr. Bridgett Angelanic DO Work Phone: [facility] [place] OrthopaedicsComment on above:Chronic pain of right wristStart: 06-02-2025 End: 54-26-0817pbgnnuurfgVH., BRIDGETT Jones AvailableStart: 05-27-2025 End: 30-35-9886Oeyfwez encounter procedureRae Louie MD Work Phone: [facility] 111Comment on above:Numbness (Primary Dx); Paresthesias; Carpal tunnel syndrome, leftStart: 05-27-2025 End: 46-70-7113ejfiigxayiRHOK D BEJNot AvailableStart: 05-15-2025 End: 60-42-3052Ulxhsh flowsAlfonzo RINALDI Work Phone: [facility] [place] [facility]opaedicsStart: 05-15-2025 End: 81-59-4086Awqfuccielo RINALDI Work Phone: [facility] [place] [facility]opaedicsStart: 05-15-2025 End: 17-33-5306zibtzceqmxLCQOMNC J MEYERNot AvailableStart: 05-15-2025 End: 22-13-4529Abdpax outpatient visit 15 minutesMalilli RINALDI Work Phone: [facility] [place] [facility]opaedicsComment on above:Right wrist pain (Primary Dx); Arm weakness; Numbness; Arm pain, right; Ulnar neuropathy of right upper extremityStart: 05-08-2025 End: 41-11-2180nzeefrzbueVPEKettering Health Main Campustart: 01-30-2025 End: 19-01-6674gxomkuvadcFOHKettering Health Main Campustart: 01-17-2025 End: 28-64-4578mrnyqdcflkYUN Awais Dia [facility] Centertart: 01-09-2025 End: 82-32-0266srvngrgdfkPXL [facility] Northtart: 12-31-2024 End: 64-85-6772mmbficootaFDUKettering Health Main Campustart: 12-12-2024 End: 72-63-2089cfxzlojhsdVPD [facility] CenterStart: 11-26-2024 End: 91-94-1970Vovwmk flowsheetRaji RINALDI Work Phone: [facility]OPAEDICSStart: 11-26-2024 End: 01-10-9957Wwoavp flowsAlfonzo RINALDI Work Phone: [facility]OPAEDICSStart: 11-26-2024 End: 98-09-2946Tpzomc outpatient visit 15 minutesMalilli RINALDI Work Phone: [facility] ORTHOPAEDICSComment on above:Acute pain of right wrist (Primary Dx); Tendonitis of wrist, rightStart: 11-26-2024 End: 15-70-0071oztqdmpbbrVBXFOMD J MEYERNot AvailableStart: 10-11-2024 End: 82-84-1828hjxdwatiprZUNFACleveland Clinic Akron Generaltart: 09-05-2024 End: 83-86-5012kiyxptisbpPEVWSVBWellmont Health System AmbulatoryStart: 09-05-2024 End: 71-17-8511Aanhjaamzefy care manage srvc 14 day dischargeFramingham [facility] Work Phone: [facility] CenterComment on above: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; S/P PTCA (percutaneous transluminal coronary angioplasty); History of coronary artery bypass graft; Ischemic cardiomyopathy; Essential hypertension; Mixed hyperlipidemia; BMI 30.0-30.9,adult; Statin intoleranceStart: 08-20-2024 End: 38-72-8041Ihgopxyoaw and management of inpatientSmatias Arroyo Facility:[facility] Southtart: 50-29-5299Qvcidspnab and management of inpatientAshley Grigsby MD Work Phone: [facility] Work Phone: Start: 57-12-3692wimukcvkyxk encounterAshley Grigsby MD Work Phone: [facility] Work Phone: start: 08-13-2024 End: 85-40-0703loykekdyseGDVBRGN S [facility] AmbulatoryStart: 08-13-2024 End: 79-82-2586Rtabdo outpatient visit 25 [facility] hospitalCelso Garibay DO Work Phone: uh [facility] HospitalComment on above:Atherosclerosis of coronary artery of quechan heart without angina pectoris, unspecified vessel or lesion type; History of coronary artery bypass graft; Essential hypertension, benign; Hyperlipidemia, unspecified hyperlipidemia type; Acute pancreatitis, unspecified complication status, unspecified pancreatitis type ([facility])Start: 08-05-2024 End: 68-06-3859vwxnppwkeoNCMoraima MARTINOFacility:ROMELIA [facility] HospitalueStart: 08-05-2024 End: 24-89-5840Cszoizs encounter procedureJENNIFER E SALENA [facility] [employer] start: 04-10-2024 End: 72-28-9575Njmvint encounter procedureJENNIFER E SALENA [facility] start: 03-11-2024 End: 17-45-1144Kolykgn encounter procedureJENNIFER E SALENA [facility] HospitalBellicum Pharmaceuticals start: 03-07-2024 End: 35-19-2393Fclqcecnbg and management of inpatientJOHN A JANESProMedica Obando HospitalStart: 03-06-2024 End: 64-48-8407Oxvoculygx and management of inpatientYASEEN S ALASTALProMedica Obando HospitalStart: 03-06-2024 End: 35-38-7120Gjcmwbftst and management of inpatientYASEEN S ALASTALProMedica Obando HospitalStart: 02-29-2024 End: 06-10-9357Ramgcjtaey and management of inpatientDOUGLAS M HOYProMedica Malden Bridge HospitalStart: 02-29-2024 End: 27-05-7269Inqtpxurw to [facility] campusMet Pat Phone Call Provider 4 A[facility] On [facility] Hospitaltart: 02-14-2024 End: 17-99-4004Aehtwp Avani Berger MD PhD Work Phone: [facility] Nose and ThroatComment on above:Xerostomia (Primary Dx)Start: 01-17-2024 End: 58-51-0439tihqdyhzzbWCZBG M WILLIAMSWestern Reserve Hospital Ambulatory PPGStart: 01-17-2024 End: 83-69-4895Rfsdmb outpatient visit 15 Sahil Berger MD PhD Work Phone: [facility], Nose and ThroatComment on above:Dry nose (Primary Dx); Xerostomia; Allergic rhinitis, unspecified seasonality, unspecified triggerStart: 08-14-2023 End: 39-49-2218Fpwsns outpatient visit 15 Becca Garibay DO Work Phone: [facility] CenterComment on above:Atherosclerosis of coronary artery of quechan heart without angina pectoris, unspecified vessel or lesion type; History of coronary artery bypass graft; Ischemic cardiomyopathy; Essential hypertension, benignStart: 06-18-2023 End: 49-89-8251psjjnfbqqgLLOYXBZahira De Souza [facility] HospitalStart: 06-18-2023 End: 81-58-0604Ulnrjyyttr hospital visit by Dipika Tello DO Work Phone: mthz ORComment on above:Post-menopausal bleeding; Inclusion cystStart: 53-06-2631Vp RenewalAshley Grigsby Work Phone: [phone]-Ypkyd [facility] DO Work Phone: Start: 69-78-9045Qochhlt encounter procedureAshley Grigsby Work Phone: [phone]-Lcwip [facility] DO Work Phone: Start: 50-60-4897nllulravslVRNOZKI M DUYYMpraful [facility] Medical Centertart: 12-12-2022 End: 18-23-9445kvnbfjljnoNM Ashley M Hoy Work Phone: [facility] Work Phone: Start: 12-12-2022 End: 83-02-8049Njqurzc encounter procedureMD Ashley Hoy Work Phone: [facility] Work Phone: Start: 11-20-2022 End: 28-29-0206suivjlmnlbAstz Asaad Other [place] [employer] Other Start: 89-88-9525Npfawfwcl encounterImad AsaadFPG GastroenterologyStart: 11-10-2022 End: 51-03-0380Bmysapi encounter procedureMD Ashley Hoy Work Phone: [facility] [place] Work Phone: Start: 11-02-2022 End: 22-39-9812Lhvaiovij to same day surgery centerMD Ashley Hoy Work Phone: [facility] Work Phone: Start: 11-02-2022 End: 10-57-4850zwhnzvhkptDZ Ashley M Hoy Work Phone: [facility] Work Phone: Start: 67-64-8719Yoamembpw encounterImad AsaadFPG GastroenterologyStart: 11-01-2022 End: 08-22-1091Gnafmhkxi to same day surgery centerMD Ashley Hoy Work Phone: [facility] Work Phone: Start: 11-01-2022 End: 13-84-0964myiytgbbpxMC Ashley M Hoy Work Phone: [facility] Work Phone: Start: 10-24-2022 End: 00-48-4534csnijihfukYgbl Asaad Other [facility] [employer] Other Start: 25-79-3157JCRI visit new patientImapilo AsaadFPG GastroenterologyStart: 10-16-2022 End: 31-46-6746ayoezboyklRG ASHLEY HOYFacility:R1Ibtwo: 10-09-2022 End: 39-29-6683qboqjvelygJW ASHLEY HOYFacility:P9Bwcjv: 21-31-7295Vi Renewal Ashley Grigsby Work Phone: [phone]-Yzvxm [facility] DO Work Phone: Start: 10-04-2022 End: 76-96-1245gyuvuhztiiHF ASHLEY HOYFacility:W7Vrgnj: 09-19-2022 End: 89-17-8975bqkykdfezyWQ DOCTOR MISCFacility:X2Zbdjl: 09-29-2653Nrsfsm outpatient visit 15 minutesDodonn Grigsby Work Phone: [phone]-Qnuwi [facility] DO Work Phone: Start: 88-42-8753Egugsjq encounter procedureAshley Grigsby Work Phone: [phone]-Ggkdp [facility] DO Work Phone: Start: 06-02-2022 End: 64-17-0115Wdcbjzw encounter procedureSantiago CARRILLO [facility] [place] start: 33-63-2570Qt RenewalAshley Grigsby Work Phone: [phone]-Ggkjm [facility] DO Work Phone: Start: 02-07-2022 End: 61-72-7275Rtxhaqy encounter procedureAshley Grigsby MD Work Phone: [facility] LaboratoryStart: 02-07-2022 End: 87-44-6022Xbrpqttadc hospital visit by Lea Grigsby MD Work Phone: mthz LaboratoryComment on above:Women's annual routine gynecological examinationStart: 53-20-2399Hz RenewalDodonn Clements Duyestefani Work Phone: [phone]-Jrqpv [facility] DO Work Phone: Start: 81-54-8175Gujvrt outpatient visit 15 minutes Ashley Grigsby Work Phone: [phone]-Zqofm [facility] DO Work Phone: Start: 08-19-2019 End: 83-35-7156Pvurrctasx hospital visit by Lea [facility] Comment on above:Well female exam with routine gynecological examStart: 32-91-9274RebazogwkiFSOBEGOY UNKNOWNFacility:1532Start: 21-40-5246Rtushujhgm PROVIDER UNKNOWNFacility:1532Start: 33-05-0217UfphoamchmWrtjyxna:9507 Procedures DateProcedureProcedure DetailPerforming ClinicianStart: 59-01-9852Rusdf wrist 2 viewsMalilli RINALDI Work Phone: Start: 43-63-5263Smknar-up visitFoPenikese [facility] Start: 87-59-1603Phdfu wrist 2 viewsMatthortenciaw Ronny RINALDI Work Phone: Start: 40-87-1243Inefv chest X-rayAshley Grigsby MD Work Phone: Start: 18-04-7464Nvluealkxwbgv flexible transoral ultrasound examJENNIFER SALENA Start: 17-39-8031BhbukgxpnroPekaxcu Sheldon DO Work Phone: Start: 83-54-3740Mnazmwm of coronary artery bypass graftingHistory of coronary artery bypass graftWideshaun Garibay DO Work Phone: Start: 28-92-4665Zbdffsypop elastography of liverMD Ashley Grigsby Work Phone: Start: 51-08-1335Rugowmwn resonance cholangiopancreatographyMD Ashley Grigsby Work Phone: Start: 11-02-2022 End: 81-78-4517RgvwvpgsxdhAX Ashley Grigsby Work Phone: Start: 73-13-1103PwqwcozhmovKD Ashley Grigsby Work Phone: Start: 94-13-5467GpsqalmkqojDoikiku Sheldon DO Work Phone: Start: 50-92-0237Qmezoqkbxau observation [Identifier] in Cervix by Cyto stainCarmen Deuce Tello DO Work Phone: Start: 62-48-0137Kbntjbrj of ganglion cystPatrick CARRILLO Start: 83-50-0769Kiaudegrsca observation [Identifier] in Cervix by Cyto stainAshley Grigsby MD Work Phone: Start: 68-65-5721Drcnebaugeo removal of ureteric stent JENNIFER MARTINO Start: 09-13-2017H/O: surgeryS/P nasal septoplastyStephanie Berger MD PhD Work Phone: AppendectomyDouglas M Seb Work Phone: [phone] CARRILLO Bypass of stomachPatrick CARRILLO Cataract surgeryDouglas [...] Work Phone: Plan of Treatment DateCare ActivityDetailAuthorStart: 48-27-1790Rjwhmfhed for malignant neoplasm of colonAvita Health SystemStyampa: 80-89-8933Ldogajksu for malignant neoplasm of cervixLake [facility]: 08-18-2025 End: 02-19-0615Ogmmplh encounter nrbomobyi93/18/2025 11:20 AM EST Office Visit [place] [address] [facility] [address] [place] [address] Celso Garibay, DO [address] [facility] [address] [place] [address] [facility]: 08-04-2025 End: 19-82-5500Jctfqdy encounter yumpzlocb93/04/2025 10:45 AM EST Office Visit [facility] [place] [place] [address] Jr. Bridgett Sinha, DO [address] [place] [address] [facility]icsStart: 08-03-2025 End: 59-81-0134Saxsddb aminotransferase [Enzymatic activity/volume] in Serum or Plasma by With P-5'-PAlanine Aminotransferase Lab Routine Hyperlipidemia, unspecified hyperlipidemia type Expected: 08/03/2025 (Approximate), Expires: 08/13/2025[facility] Work Phone: Comment on above:Expected: 08/03/2025 (Approximate), Expires: 08/13/2025Start: 08-03-2025 End: 95-25-6121Ugifjyelx aminotransferase [Enzymatic activity/volume] in Serum or Plasma by With P-5'-PAspartate Aminotransferase Lab Routine Hyperlipidemia, unspecified hyperlipidemia type Expected: 08/03/2025 (Approximate), Expires: 08/13/2025[facility] Work Phone: Comment on above:Expected: 08/03/2025 (Approximate), Expires: 08/13/2025Start: 08-03-2025 End: 58-55-3524Lbwme 1996 panel - Serum or PlasmaLipid Panel Lab Routine Hyperlipidemia, unspecified hyperlipidemia type Expected: 08/03/2025 (Approx imate), Expires: 08/13/2025[facility] Work Phone: Comment on above:Expected: 08/03/2025 (Approximate), Expires: 08/13/2025Start: 07-14-2025 End: 27-09-4993gbwiangecg20/14/2025 5:00 PM EDT Evaluation [facility] [address] [place] [address] Kayode Francois, PT [address] [place], [place] [id number] [facility] Campustart: 06-23-2025 End: 00-45-5711Vfrjdkd encounter rethonmcy32/23/2025 11:00 AM EDT Office Visit [facility] [address] [place] [address] Jr. Bridgett Sinha, DO [address] [facility] [address] [place] [address] [facility]PITALPam [facility]icsStart: 06-02-2025 End: 36-49-2576SB Wrist - right WO contrastMR wrist right wo IV contrast Imaging Routine Chronic pain of right wrist Expected: 06/02/2025 (Approximate), Expires: 06/02/2026[facility] Work Phone: Comment on above:Expected: 06/02/2025 (Approximate), Expires: 06/02/2026Start: 06-02-2025 End: 37-52-5866Ljztkhn encounter procedureNOMN [place] OrthopaedicsComment on above:ArrivedStart: 79-40-6328Wqagpqsxb vaccinationInfluenza Vaccine (#1)[facility] HealthcareStart: 05-15-2025 End: 65-33-2774TUG AND NERVE CONDUCTION STUDYEMG AND NERVE CONDUCTION STUDY Neurology Routine Arm weakness Numbness Arm pain, right Ulnar neuropathy of right upper extremity Expected: 05/15/2025 (Approximate), Expires: 05/15/2026 [facility] Work Phone: Comment on above:Expected: 05/15/2025 (Approximate), Expires: 05/15/2026Start: 03-17-2025 End: 93-53-7299Ewhwmdy encounter mjplgwhag79/17/2025 2:40 PM EDT Office Visit [facility] [address] [facility] [address] [place] [address] Celso Garibay DO [address] [facility] [address] [place] [address] [facility] CenterStart: 56-98-5953Lvhvn BMI ScreeningAdult BMI ScreeningProKeenan Private Hospital SystemStart: 29-30-9402Sohwwoywk for malignant neoplasm of cervixBON SECOURS DUNLAP MEMORIAL HOSPITALStart: 41-33-4459Sxbaf BMI Screening Adult BMI ScreeningProKeenan Private Hospital SystemStart: 83-22-2861Trjyiuj Screening Tobacco ScreeningChildren's Hospital of Columbus SystemStart: 01-15-2025 End: 83-20-5630Owqcwhe encounter fxowhkoud98/17/2025 4:00 PM EDT Office Visit [facility] [address] [place] [address] Stephanie Berger MD PhD [address] [facility] [address] [place] [address] [facility] Start: 11-26-2024 End: 65-13-4390Oayngra encounter qfjjyjmqe32/26/2025 1:00 PM EST Office Visit [facility] [address] [place] [address] Raji Byrd PA [address] [facility] [address] [place] [address] Acute pain of right wrist (Primary Dx)[facility] Comment on above:Acute pain of right wrist (Primary Dx)Start: 08-19-2024 [facility] malignant [facility]ixM[facility] HospitalStart: [id number] Health [facility] Southtart: [phone] to cardiologistPremier Health [facility]htart: [phone] Health [facility]htart: [phone] admissionPremier Health [facility]htart: 08-15-2024 Screening for malignant neoplasm of breastMammogramAvita Health SystemStart: 08-13-2024 End: 86-50-9994Eqsbpyk encounter odunocytu59/13/2024 11:30 AM EST Office Visit [facility] [address] [facility] [address] [place] [address] Celso Garibay DO [address] [facility] [address] [place], [place] [id number] [facility]: [id number] High Risk: (Elderly (60+) or Population) (1 - Risk 60-74 years 1-dose series)RSV High Risk: (Elderly (60+) or Population) (1 - Risk 60-74 years 1-dose series) [facility] SystemStart: 41-81-5745SXZTC-19 Vaccine ( season)COVID-19 Vaccine ( season)[facility] Start: 34-97-8867Aegoofkgy vaccinationInfluenza VaccineChildren's Hospital of [facility] Start: 03-06-2024 End: 63-54-7764Bcjdhrvnr to same day surgery kypxjk2903/06/2024 11:30 AM EDT - 03/06/2024 12:45 PM EDT Surgery [facility] [address] [place] [address] Danielle Magallon MD [address] [place] [address] ESOPHAGOGASTRODUODENOSCOPY DIAGNOSTIC [37314 (CPT )][facility]oscopyComment on above:ESOPHAGOGASTRODUODENOSCOPY DIAGNOSTIC [27622 (CPT )] Start: 03-06-2024 End: 28-12-0553Kphfrslhxydtntznrfctasnuey transoral diagnostic ESOPHAGOGASTRODUODENOSCOPY DIAGNOSTIC ACUTE RECURRING PANCREATITIS, EPIGASTRIC PAIN 03/06/2024 11:30 AM EDTTOLEDO ENDOSCOPYStart: 03-06-2024 End: 36-89-6222Xfkhghftduhwz flexible transoral ultrasound examENDOSCOPIC ULTRASOUND UPPER ACUTE RECURRING PANCREATITIS, EPIGASTRIC PAIN 03/06/2024 11:30 AM EDTTOLEDO ENDOSCOPYStart: 04-27-1906Urhufgntny hospital visit by physician 03/06/2024 11:30 AM EDT Hospital Encounter [facility] [address] [place] [address] Danielle Magallon MD [address] [place] [address] [facility]oscopyStart: 80-92-3577Nybneqxufu Screen Depression ScreenSENTARA VIRGINIA BEACH GENERAL HOSPITALStart: 02-12-2024 End: 57-64-5303Egpulri aminotransferase [Enzymatic activity/volume] in Serum or Plasma by With P-5'-PAlanine Aminotransferase Lab Routine History of coronary artery bypass graft Ischemic cardiomyopathy Expected: 02/12/2024 (Approximate), Expires: 08/14/2024UnVan Wert County Hospital Work Phone: Comment on above:Expected: 02/12/2024 (Approximate), Expires: 08/14/2024Start: 02-12-2024 End: 96-86-2078Ttuhckpln aminotransferase [Enzymatic activity/volume] in Serum or Plasma by With P-5'-PAspartate Aminotransferase Lab Routine Atherosclerosis of coronary artery of quechan heart without angina pectoris, unspecified vessel or lesion type Ischemic cardiomyopathy Expected: 02/12/2024 (Approximate), Expires: 08/14/2024[facility] Work Phone: Comment on above:Expected: 02/12/2024 (Approximate), Expires: 08/14/2024Start: 02-12-2024 End: 85-93-7536Chxbw 1996 panel - Serum or PlasmaLipid Panel Lab Routine Atherosclerosis of coronary artery of quechan heart without angina pectoris, unspecified vessel or lesion type Expected: 02/12/2024 (Approximate), Expires: 08/14/2024[facility] Service Area Work Phone: Comment on above:Expected: 02/12/2024 (Approximate), Expires: 08/14/2024Start: 16-12-4151WHB, Provider: Celso Garibay, Status: Julio, Time: 3:00 PMFUV, Provider: Celso Garibay, Status: Julio, Time: 3:00 PM-[facility] 250 DO Work Phone: Start: 00-58-1267Cyswvajyx for malignant neoplasm of breastBreast cancer screenMorrow County HospitalStart: 88-86-5916Jhhgppmzr for malignant neoplasm of breastMammogramUnVan Wert County HospitalStart: 07-03-2023 End: 31-90-4187Lwfjjly encounter uyqrjqylu48/03/2023 4:45 PM EDT Office Visit [facility] Part [facility] [address] [place] [address] Deuce Gaby Tello, DO [address] [place] [address] post-op BA 05/16[facility] Part [facility] HospitalComment on above:post-op BA 8/tart: 06-18-2023 End: 21-72-5596Qjgwwbkospow bx endometrium&/polypc w/wo d&cDILATATION AND CURETTAGE HYSTEROSCOPY Post-menopausal bleeding Inclusion cyst 06/18/2023 2:[address] [facility] Warren Hospitaltart: 28-83-9785NOXPN-19 Vaccine ()COVID-19 Vaccine ()[facility] SystemStart: 02-13-2023 End: 77-13-0291Klciysw encounter isxvzqjry39/16/2023 Office Visit Obstetrics and Gynecology Gaby Phillips, DO [address] [place] [address] [facility] Part [facility]tart: 12-30-8017CpuwbzauhPremier Health Miami Valley Hospital Southtart: 40-77-2115ZktazjmrxKettering Health Washington Township CenterStart: 11-01-2022 [facility] CenterStart: 45-39-9489Qgrscznzo for malignant neoplasm of cervixPap smearAcmc Healthcare System Glenbeigh HealthStart: 77-86-1461HIA, Provider: Celso Garibay, Status: Pen, Time: 3:00 PMFUV, Provider: Celso Garibay, Status: Pen, Time: 3:00 PM-[facility] 250 DO Work Phone: Start: 98-83-8925Yqfzc panelLipidsAcmc Healthcare System Glenbeigh HealthStart: 43-33-1454WDTQT-19 Vaccine (4 - Pfizer series)COVID-19 Vaccine (4 - Pfizer series)SADI RODRIGUEZ [facility]: 75-31-0761Gfeotrryr vaccinationFlu vaccine (#1)[facility]: 07-05-8961Ahtpuiqwpqex Vaccine: Pediatrics (0 to 5 Years) and At-Risk Patients (6 to 64 Years) (2 - PCV)Pneumococcal Vaccine: Pediatrics (0 to 5 Years) and At-Risk Patients (6 to 64 Years) (2 - PCV) [facility]: 52-13-7238Hnejzehyjgan Vaccine: Pediatrics (0 to 5 Years) and At-Risk Patients (6 to 64 Years) (2 of 2 - PCV) Pneumococcal Vaccine: Pediatrics (0 to 5 Years) and At-Risk Patients (6 to 64 Years) (2 of 2 - PCV)[facility]: 31-66-3084Mlklnj cancer screenBreast cancer screenThe [facility]: 84-67-8078Zjqfh cancer screen colonoscopyColon cancer screen colonoscopyBellevue, [place] Start: 82-21-1890Tppwxxze Vaccine (1 of 2)Shingles Vaccine (1 of 2)[facility] Start: 06-69-2682LGT Vaccines (1 of 1 - Standard series)MMR Vaccines (1 of 1 - Standard series)[facility]: 45-83-9513Oqofeqhza for malignant neoplasm of colonOhioHealth Hardin Memorial Hospital: 61-76-5737Kkjtjtng screenDiabetes screenOhioHealth Hardin Memorial Hospital: 65-21-2967SQkP/Tdap/Td Vaccines (1 - Tdap)DTaP/Tdap/Td Vaccines (1 - Tdap)[facility]: 71-43-1802Bqellqly cancer screenCervical cancer screenThe [facility]: 1985 Screening for malignant neoplasm of cervixAvita Health System Start: 93-40-6120VAuT,Tdap and Td Vaccines (1 - Tdap)DTaP,Tdap and Td Vaccines (1 - Tdap)[facility] SystemStart: 04-57-2061VZiX/Tdap/Td vaccine (1 - Tdap)DTaP/Tdap/Td vaccine (1 - Tdap)[facility]: 57-86-1387Ipzor BMI Follow Up PlanAdult BMI Follow Up PlanUNC Health Rextart: 1982 Diabetes mellitus screeningDiabetes ScreeningAvita Health System Start: 07-86-9904Ktlawvgwh C screeningUniversity Hospitals Cleveland Medical Centerart: 64-12-1293VXG screenHIV [facility]: 86-49-6335XRA screeningHIV [facility] [place] Start: 54-21-1610Ehajvczxqa ScreenDepression [facility]: 1976 Depression ScreeningDepression ScreeningUNC Health Rextart: 1975 DTaP/Tdap/Td vaccine (1 - Tdap)DTaP/Tdap/Td vaccine (1 - Tdap)[facility]: 84-18-1327Sctmb panelLipidsBON [facility]: 1974 Lipid screenLipid screenThe [facility]: 45-52-2366Veplqsvfq B vaccine (1 of 3 - 3-dose series)Hepatitis B vaccine (1 of 3 - 3-dose series)[facility]: 00-07-6390Shrlddagn B Vaccines (1 of 3 - 3-dose series) Hepatitis B Vaccines (1 of 3 - 3-dose series)[facility] Start: 74-54-0127Ktdhswgfx C screenHepatitis C [facility]: 95-12-5072NLN screeningHIV ScreeningAvita Health SystemStart: 84-26-4277Oiaaj panelLipid PanelAvita Health SystemStart: 47-56-6739Nmrjdvvmf for malignant neoplasm of colonAvita Health SystemStart: 96-55-1399Humxda Adult PhysicalYearly Adult PhysicalUnVan Wert County HospitalActin smooth muscle IgG Ab [Units/volume] in Serum Marion HospitalAlpha 1 antitrypsin [Mass/volume] in Serum or PlasmaMarion HospitalAlpha 1 antitrypsin phenotyping [Identifier] in Serum or Plasma by ImmunofixationMarion HospitalCeruloplasmin [Mass/volume] in Serum or PlasmaMarion Hospital End: 23-98-8457Bsdgxqttzklop procedure, preparation of smear, genital sourcePAP SMEAR Lab Routine Well female exam with routine gynecological exam 1 Occurrences starting 08/19/2019 until 08/19/2019[facility] CallidusCloudTrinity Health [facility] on above:1 Occurrences starting 08/19/2019 until 08/19/2019 End: 43-74-8888Eouyqrqereybb procedure, preparation of smear, genital sourcePAP SMEAR Lab Routine Women's annual routine gynecological examination 1 Occurrences starting 02/07/2022 until 02/07/2022[facility] Call[employer]Cloud Work Phone: comment on above:1 Occurrences starting 02/07/2022 until 02/07/2022Glucose measurement estimated from glycated hemoglobinUniversity Hospitals Ahuja Medical Center A virus Ab [Presence] in Serum by Immunoassay Marion HospitalHeeast los angeles doctors hospital B core antibody measurementMarion HospitalHeeast los angeles doctors hospital B virus surface Ab [Presence] in SerumMarion HospitalHeeast los angeles doctors hospital B virus surface Ag [Presence] in Serum or Plasma by ImmunoassayUniversity Hospitals Ahuja Medical Center C virus IgG Ab [Presence] in Serum or Plasma by ImmunoassayMarion Hospital Homogenous nuclear Ab pattern [Titer] in [facility] IgG [Mass/volume] in Serum or PlasmaMarion Hospital End: 36-45-8161CPFKWWFU PACU OXYGEN THERAPY PROTOCOLInitiate PACU Oxygen Therapy Protocol Respiratory Care Routine Continuous until discontinued starting 06/18/2023 [facility] on above:Continuous until discontinued starting 06/18/2023Lipoprotein a [Moles/volume] in Serum or PlasmaMarion HospitalMitochondria M2 IgG Ab [Units/volume] in [facility] HospitalNuclear Ab [Titer] in [facility] County HospitalOxygen therapy [Minimum Data Set]Initiate Oxygen Therapy Protocol Respiratory Care Routine As Needed until discontinued starting 06/18/2023 [facility] on above:As Needed until discontinued starting 06/18/2023Oxygen therapy [Minimum Data Set]Initiate Oxygen Therapy Protocol Respiratory Care Routine As Needed until discontinued starting 06/18/2023 [facility] on above:As Needed until discontinued starting 06/18/2023atient EducationHemorrhoids (DC)[facility] Work Phone: End: 70-91-6178Aovahaied, urine POCTPregnancy, urine POCT Point of Care Testing Routine One Time for 1 Occurrences starting 06/18/2023 until 06/18/2023ON [facility] on above:One Time for 1 Occurrences starting 06/18/2023 until 06/18/2023Surgical PathologySurgical Pathology Lab Routine Post-menopausal bleeding Inclusion cyst Release Upon Ordering for 1 Occurrences starting 06/18/2023ON [facility] on above:Release Upon Ordering for 1 Occurrences starting 06/18/2023[facility] Immunizations Immunization DateImmunizationNotesCare ZkoogjapSyetiggu73-39-3656khrnuncfm virus vaccine, unspecified formulationMalilli RINALDI Work Phone: NOSt. Louis VA Medical CenterQmpemopsoz81-25-6235xdolajtpg, unspecified formulationJELIZBETH MARTINO [facility]09-05-2023influenza virus vaccine, unspecified formulationStephanie Berger MD PhD Work Phone: [facility] HospitalVmsjaq39-78-4642dcyviiboq, injectable, quadrivalent, preservative Estevan Gordilloestefani Work Phone: [phone]-TqaccMercy Hospital of [facility] 250 DO Work Phone: [phone] vaccine recombinantAshley Clements Hoy Work Phone: [phone]-IwplqOlivia Hospital and ClinicsFlint Capital 250 DO Work Phone: [phone]-XklWFizv COVID-19 Vacc 30 MCG/0.3ML Intramuscular SuspensionDouglas Elias Hoy Work Phone: [phone]-WfnjdMercy Hospital of [facility] 250 DO Work Phone: [phone]tl virus vaccine, unspecified formulationugcholo M Hoy Work Phone: [phone]-DguwtMercy Hospital of [facility] 250 DO Work Phone: [phone], injectable, Madin Murdock Canine Kidney, preservative free, quadrivalentDouglas M Hoy Work Phone: [phone]-VmbxcMercy Hospital of [facility] 250 DO Work Phone: [phone]-OfgPDwow COVID-19 Vacc 30 MCG/0.3ML Intramuscular SuspensionDouglas M Hoy Work Phone: [phone]-FdejtMercy Hospital of [facility] 250 DO Work Phone: [phone]-NgjMIdsx COVID-19 Vacc 30 MCG/0.3ML Intramuscular SuspensionDouglas M Hoy Work Phone: [facility] HospitalVxayak82-21-5322shpzkxkah, injectable, quadrivalent, preservative freeDouglas M Hoy Work Phone: [phone]-HxypnMercy Hospital of [facility] 250 DO Work Phone: [phone], injectable, quadrivalent, preservative freeDouglas M Hoy Work Phone: [phone]-KnrxcMercy Hospital of [facility] 250 DO Work Phone: [phone], injectable, Madin Renetta Canine Kidney, preservative free, quadrivalentDouglas M Hoy Work Phone: [phone]-NvlclMercy Hospital of [facility] 250 DO Work Phone: [phone]wt polysaccharide vaccine, 23 valentDouglas M Hoy Work Phone: [phone]-AhwmhMercy Hospital of [facility] 250 DO Work Phone: [phone]f, seasonal, injectable, preservative freeDouglas M Hoy Work Phone: [phone]-KfizdMercy Hospital of [facility] 250 DO Work Phone: [phone], seasonal, injectableDouglas M Hoy Work Phone: [phone]-WqzggMercy Hospital of [facility] 250 DO Work Phone: [phone] nxxlvvzhf-N0N5-36, preservative-free, injectableDodonn Grigsby Work Phone: [phone]-BoxjbMercy Hospital of [place] 250 DO Work Phone: Payers DatePayer CategoryPayerPolicy [id number]-dyt [id number] Cross Blue ShieldBCBS [id number]St. Vincent's East CareADVENTHEALTH [facility] 1.2.840.928527.1.13.647.2.7.9.330032.194771.03286-18-6451Ygppfkz2007 UnknownBCBS HIGHMARK BCBS HIGHMARK PPO [place] LOCAL xxxxxxxxxxxxxxx 2019-Present [address] [place] [address]ovzmsbgcvkksjgh 1.2.840.048164.1.13.239.2.7.3.054[id number] 2.16.840.1.693993.3.579.[id number] 2.16.840.1.996053.3.579.[id number] 2.16.840.1.171212.3.579.2.13007-42-4046Mmefsgb5483083 2.16.840.1.266800.3.579.2.90675-47-0129Bhlxogh1784384 2.16840.1.298294.3.579.2.54360-96-6599Yngefal44390371 2.16840.1.153262.3.579.2.18689-37-9927Uqrrwbv494449865 2.840.1.525932.3.579.2.43791-03-3548Izshyxu28304718 2.16840.1.019477.3.579.2.342393-94-3309Kpnyknd04895411 2.840.1.748069.3.579.2.237481-06-5794Rlcixwa22181659 2.840.1.520601.3.579.2.840760-64-1294Wdyqkks03840846 2.16840.1.854135.3.579.2.424033-77-7296Kvseedn05116509 2.16840.1.889659.3.579.2.701702-88-2458Olmwtcu13066435 2.16840.1.253802.3.579.2.901325-06-5445Ysonkjh93344014 2.16840.1.185134.3.579.2.677686-15-3203Tvynefx118266594 2.16840.1.912109.3.579.2.788712-11-6546Tzehxht340665529 2.0.1.625698.3.579.2.248968-07-1633Sodmrqf195458997 2.840.1.614584.3.579.2.173410-33-6274Wkgdtaa496849056 2.0.1.548586.3.579.2.604523-29-2826Oigqjeo23233911 2.0.1.195247.3.579.2.298333-31-4189Xqlsymd90832802 2..1.570688.3.579.2.336753-49-1889Odqhgoh22878743 2.0.1.674305.3.579.2.176188-01-9522Kvxccdp36438713 2.0.1.889018.3.579.2.506379-01-7152Teentcr96203914 2.0.1.254504.3.579.2.660683-29-5267Qylpcvm05918439 2..1.484683.3.579.2.819257-91-7180Dyuxwag6812525 2..1.978396.3.579.2.505689-91-8804Lwxgslg3981316 2..1.134644.3.579.2.920931-74-2040Hfxkqss10236021 2..1.683189.3.579.2.09497-67-2885Svnbuhf69503130 2.0.1.900147.3.579.2.77847-58-8979MfcpvowZOJ90177959189220-78-9547Tswckou OFM636X77724Qekguql68079100 2.0.1.526251.3.579.2.531 Social History DateTypeDetailFacilityStart: 08-19-2019 End: 63-21-6124Swwaowm smoking status NHISNever smokerBellevue, [place]Start: 08-19-2019 End: 48-23-3802Nnjywvp intakeEx-drinker (finding)[place], [place]Start: 36-86-1356Ipd Assigned At BirthNot on fileHocking Valley Community Hospitalart: 06-18-2023 End: 66-13-4066Hx alcohol useNo alcohol useVeterans Health Administration [employer] 250 DO Work Phone: Start: 08-19-2019 End: 55-19-3894Ygqrvtf use and exposureSmokeless tobacco non-userMorrow County Hospital Work Phone: start: 06-18-2023 End: 76-16-2806Inq Assigned At [facility] HospitalFemaleExec[facility] start: 79-89-7040Phs Assigned At [facility] HospitalPatient Health Questionnaire 9 item (PHQ-9) total score [Reported]0[facility] HOSPITALStart: 08-14-2023 End: 36-66-2678Dnygesw intakeLifetime non-drinker (finding)[facility] Work Phone: Start: 08-04-2023 End: 19-72-0615Jproqwev to SARS-CoV-2 (event)Not sureAvita Health SystemStart: 71-16-5279VtrTlnnqd (finding)[facility] Start: 01-17-2024 End: 32-33-9642Uojwxiivh beverage intakeCurrent non-drinker of alcohol (finding) CYPH[facility] SystemStart: 84-07-8954Yxzztu identityIdentifies as female gender (finding)[facility]OMS HealthcareNEGATED: Highlighted rowDenies Caffeine useDenies Caffeine use-[facility] [employer] 250 DO Work Phone: Medical Equipment Procedure CodeEquipment CodeEquipment Original TextEquipment IdentifierDates Cystoscopy, with ureteral calculus manipulation and stent placementSTENT BARD MULTI 6FR 22-32CMFDAStart: 04-66-6779Xifqwzootd, with ureteral calculus manipulation and stent placementSTENT BARD MULTI 6FR 22-32CMFDAStart: 04-24-2018 Cystoscopy, with ureteral calculus manipulation and stent placementSTENT BARD MULTI 6FR 22-32CMFDAStart: 28-42-8731Sjppbuymws, with ureteral calculus manipulation and stent placementSTENT BARD MULTI 6FR 22-32CMFDAStart: 04-24-2018 Tissue Alloderm Nonmesh 2x4cm - Sna - [id number]: 80-07-1237Ittw Iol Ultrasert 17.0d - [id number] - [id number]: 14-78-4679Btnjw Implant Propel Mini - Sna - [id number]: 71-88-5695Zefas Implant Propel - Sna - [id number]: 64-28-5865Jgjxmjfgy [id number]_xbv Start: 11-05-2018 Goals DatePatient GoalDesired Activity/State Functional Status KbonCegvnodbwpPsiqdxVztlxavr39-03-1006Ukznhcmabs StatusN/AExec[facility]07-11-2024Functional StatusN/AExec[facility]09-02-2022Functional StatusN/A [facility] Clinical Notes 06-02-2022 to 06-23-2025 Note Date & MjzgSeitJxmqqrhr58-89-1821 History of Present illness Narrative* Jr. Bridgett [...] for requiring urgent evaluation. documented in this encounterCenterPointe HospitalIuwnrhijih98-66-2933 History of Present illness Narrative* Bridgett Sinha, [...] IV contrast MRI RT wrist w/o at [facility]. Orbits if needed. Please contact [...] for requiring urgent evaluation. documented in this encounterCenterPointe HospitalCzwzurwuqt70-82-4408 History of Present illness Narrative* Rae Louie MD - 05/27/2025 3:15 PM EDT [facility] Patient: Jose Alberto Saleem [address], [address] , Sex: 1965, Male [place], [place] [address] Height: 160 cm Ref Phys: Byrd fax [...] Doub=doublet; Fasc=fasciculation; FFE=full for effort; Fib=fibrillation; Myokym=myokymia; Brooten=myotonic potential; N,0=normal; NR=no response; Polyph=polyphasia; Pos=positive [sharp] [...] or mononeuritis multiplex. Rae Louie M.D. Diplomate, [place] [employer] Psychiatry and Neurology (neurology, epilepsy, sleep medicine) Diplomate, [place] Board of Clinical Neurophysiology Diplomate, [place] Board of Preventive Medicine (clinical informatics) . documented in this encounterCenterPointe HospitalNwwsmyubhj64-50-9533 NoteCalled patient today to let her know [...] dosage depending on her snack, verifies understanding. [facility]08-15-2025 History of Present illness Narrative* GENTRY Kearney [...] her hand tightly in a fist. 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 She has had prior carpal [...] Scheduling Instructions: Schedule with Dr. Louie ( [facility] EMG resource).- EMG RT UE; PLEASE CALL [...] requiring urgent evaluation. Visit was preformed using [employer]-executive pilot speech recognition. documented in this encounterCenterPointe HospitalTljqzgkwre14-12-5111 NoteCalled patient to follow up with the [...] LATIA Rivera in the clinic and Dr. Watson.[facility]08-08-2025 Note Attestation signed by Chauncey Kimble MD at 05/08/2025 4:15 PM I personally saw the patient with the resident/fellow on the same day of service. I discussed the findings and therapeutic plan with the resident/fellow and with the patient. I agree with the documentation. [facility] Gastroenterology Follow-Up Patient Visit CHIEF COMPLAINT No [...] B12/Folate/Iron studies: Lab Results Component Value Date [id number] 1,862 (H) 02/27/2024 FOLATE 39.0 02/27/2024 IRON [...] TSH 2.02 02/27/2024 Pancreatiti (more content not included)...[facility] 01-09-2025 Note Attestation signed by Chauncey Kimble MD at 01/10/2025 8:31 AM I personally saw the patient with the resident/fellow on the same day of service. I discussed the findings and therapeutic plan with the resident/fellow and with the patient. I agree with the documentation. [facility] Gastroenterology New Patient Visit - History & Physical CHIEF COMPLAINT Chief Complaint Patient presents with Follow-up MRI follow up and seen at [facility] and in hospital for 1 [...] on for which she was admitted at [facility] and was management symptomatically. Patient reported [...] Plavix, baby aspirin, amlodipine, and a PRN Peel for pain. Of note, she has a [...] which were ordered at the outside facility ([facility]) and remain pending. A HIDA scan may also be pursued for further evaluation. She reports extreme fatigue post-hospitalization, interfering with her work and daily function. She prefers to avoid surgical intervention unless necessary and is open to advanced enteroscopy (e.g., device-assisted ERCP) at tertiary centers ([facility] or [facility]) as a less invasive alternative to laparoscopic-assisted ERCP. Plan includes requesting complete LFTs and pancreatic (more content not included)... [facility]03-14-2025 Note Attestation signed by Chauncey Kimble MD at 12/12/2024 3:31 PM I personally saw the patient with the resident/fellow on the same day of service. I discussed the findings and therapeutic plan with the resident/fellow and with the patient. I agree with the documentation. [facility] Gastroenterology New Patient Visit - History & [...] on for which she was admitted at [facility] and was management symptomatically. Patient reported [...] healthy appearing mucosa. This was traversed. The dvyyz-td-sjvtryz limb was characterized by healthy appearing mucosa. [...] Angina pectoris Atherosclerosis of coronary artery of quechan heart without angina pectoris Cellulitis of right [...] Mother Katharyn Hyperlipidemia Father Munoz Hyperlipidemia Brother Minong Heart attack Brother Ray SOCIAL HISTORY: Social History Tobacco Use Smoking status: Never Smokeless tobacco: Never Vaping Use Vaping status: Never Used Substance Use Topics Alcohol use: Never Drug use: Never ALLERGIES: Baclofen; Latex, natural rubber; Penicillins; Sulfa (sulfonamide antibiotics); Rosuvastatin; Sulfamethoxazole-trimethoprim; Fenofibrate; Fenofibrate micronized; Fluvastatin; Levofloxacin; Phenazopyridine; Simvastatin; Trimethoprim; and Tobramycin Current Med (more content not included)...[facility] 11-26-2024 History of Present illness Narrative* GENTRY [...] A POP 10/08/24- WENT [facility]; SENT TO [facility] XRAYS XRAY RT WRIST TODAY EPIC 11/26/[address] [facility] RT FOREARM 10/11/24 SPLINT DOING WELL TODAY- [...] xray 10/11/24 (R) Forearm: no acute fracture [facility] Results - Imaging: - X-ray of the [...] for requiring urgent evaluation. documented in this encounterCenterPointe HospitalCbhowjfcvl55-17-1532 History of Present illness Narrative* Celso Garibay, - 09/05/2024 9:20 AM EST Subjective Jose Alberto Saleem is a 59 y.o. female Chief Complaint Follow-up 59-year-old female returns following acute coronary syndrome, with subsequent two-vessel intervention of the vein graft to the diagonal branch with long 3.5 x 38 mm Ray stent and quechan distal circumflex for in-stent restenosis with 3 x 18 mm Ripley stent. LV function is preserved. WHEELER-LAD remains patent, quechan right coronary vein graft right coronary is chronically occluded (known from the past) and collateralized via left coronary system, and vein graft to the OM 2 is also occluded chronically however quechan circumflex is intact. Patient is otherwise stable [...] 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 2. S/P PTCA [...] exam, discussion and plan. documented in this [facility] Work Phone: 1(592) 400-735212-06-2024 Instructions* Patient Instructions* Jasmyne Salinas LPN - [...] through Care Everywhere. * Heart Healthy Diet (Barbadian) documented in this [facility] Work Phone: 1(483) 700-837011-19-2024 Evaluation note* Diagnosis Onset Date Resolution Status Admit Date Atypical chest pain acuteNovember 2023 11:18pm [facility] Work Phone: 1(826) 476-546011-13-2024 History of Present illness Narrative* Celso Garibay, [...] has a history of remote CABG, remote MD, remote PCI's before and after her CABG [...] Assessment/Plan 1. Atherosclerosis of coronary artery of quechan heart without angina pectoris, unspecified vessel or lesion type Follow Up In Cardiology 2. History of coronary artery bypass graft Follow Up In Cardiology 3. Essential hypertension, benign 4. Hyperlipidemia, unspecified hyperlipidemia type 5. Acute pancreatitis, unspecified complication status, unspecified pancreatitis type ([facility]) Scribe Attestation By signing my name [...] exam, discussion and plan. [facility] Work Phone: 1(474) 525-729111-13-2024 Instructions* Patient Instructions* Bettie Ugalde LPN - [...] Provided instructions on exercise. documented in this [facility]Av[facility] Work Phone: 1(170) 370-978911-05-2024 Hospital Discharge instructions Patient Education 08/05/2024 12:20:10 Kidney Stones, Ykks-ed-Qvdg Kidney Stones Kidney stones are rock-like masses [...] Follow these instructions at home: Medicines Take bvuy-gxg-ujmxjms and prescription medicines only as told by [...] provider. Document Revised: 05/11/2023 Document Reviewed: 05/11/2023 [employer] Patient Education 2023 [employer]. Follow Up Care 06/06/2024 11:10:21 With:SALENA REDDY, JENNIFER López, TRUDYL Address: When:1 year [facility] 11-05-2024 NotePatient Education Urology Kidney Stones [...] these instructions at home: Medicines ??? Take hlxq-bzf-alxofsk and prescription medicines only as told by [...] provider. Document Revised: 05/11/2023 Document Reviewed: 05/11/2023 [employer] Patient Education ? 2023 [employer].[facility] 04-10-2024 Hospital Discharge instructions Patient Education 04/10/2024 16:08:23 Kidney Stones, Oxmj-mx-Jmux Kidney Stones Kidney stones are rock-like masses [...] Follow these instructions at home: Medicines Take csji-xae-tetmgfb and prescription medicines only as told by [...] provider. Document Revised: 05/22/2022 Document Reviewed: 05/22/2022 [employer] Patient Education 2022 [employer]. Follow Up Care 03/10/2024 08:31:33 With:JENNIFER MARTINO PA-C, URL Address: [address] [place] [place] [address] When:3 months [facility] 05-31-2024 Instructions* Pre-Procedure Instructions - Aracely Boyd RN - 02/29/2024 10:00 AM EDT Your surgery/procedure is scheduled at [facility] on 03/06/2024 at 1130 Arrival Time 0930 [facility] Address: [address] [place] [address]. [place] [address] Park in [address] Parking lot located on [facility]. Report to the Entrance B. Check in at the information desk the surgery. The waiting room located on the second floor. If you have any questions prior to surgery, please call Pre-Admission Clinic at [phone] between 7:30 am and 4:30 pm Sunday through Sunday. If you have questions the morning of surgery, please call the Pre-op Department at [phone]. Notify your SURGEON if you develop any [...] would like to schedule therapy at a [facility] facility, please call [phone] ([phone]). Do not use lotions, creams, powders, perfume, [...] RIGHTS AND RESPONSIBILITIES As a patient at [facility], you have the right to: Receive medical care and be informed of who is taking care of you Be treated with dignity and respect Have a family member/hr representative of choice and your physician notified of your admission Receive information and actively participate in decisions about your care and treatment Refuse care, treatment and services Decide who may provide your support and speak for you Access yarsani and spiritual services Participate in ethical issues [...] of hospital charges and payment methods Patient/patient hr representative responsibilities are to: Provide information about [...] RIGHTS AND RESPONSIBILITIES As a patient at [facility], you have the right to: Receive medical care and be informed of who is taking care of you Be treated with dignity and respect Have a family member/hr representative of choice and your physician notified of your admission Receive information and actively participate in decisions about your care and treatment Refuse care, treatment and services Decide who may provide your support and speak for you Access yarsani and spiritual services Participate in ethical issues [...] of hospital charges and payment methods Patient/patient hr representative responsibilities are to: Provide information about [...] Control department if you have any questions. [facility]05-31-2024 Miscellaneous Notes* Pre-Procedure Instructions - Aracely Boyd RN - 02/29/2024 10:00 AM EDT Your surgery/procedure is scheduled at [facility] on 03/06/2024 at 1130 Arrival Time 0930 [facility] Address: [address] [place] [address]. [place] [address] Park in [address] Parking lot located on [facility]. Report to the Entrance B. Check in at the information desk the surgery. The waiting room located on the second floor. If you have any questions prior to surgery, please call Pre-Admission Clinic at [phone] between 7:30 am and 4:30 pm Sunday through Sunday. If you have questions the morning of surgery, please call the Pre-op Department at [phone]. Notify your SURGEON if you develop any [...] would like to schedule therapy at a [facility] facility, please call [phone] ([phone]). Do not use lotions, creams, powders, perfume, [...] RIGHTS AND RESPONSIBILITIES As a patient at [facility], you have the right to: Receive medical care and be informed of who is taking care of you Be treated with dignity and respect Have a family member/hr representative of choice and your physician notified of your admission Receive information and actively participate in decisions about your care and treatment Refuse care, treatment and services Decide who may provide your support and speak for you Access yarsani and spiritual services Participate in ethical issues [...] of hospital charges and payment methods Patient/patient hr representative responsibilities are to: Provide information about [...] RIGHTS AND RESPONSIBILITIES As a patient at [facility], you have the right to: Receive medical care and be informed of who is taking care of you Be treated with dignity and respect Have a family member/hr representative of choice and your physician notified of your admission Receive information and actively participate in decisions about your care and treatment Refuse care, treatment and services Decide who may provide your support and speak for you Access yarsani and spiritual services Participate in ethical issues [...] of hospital charges and payment methods Patient/patient hr representative responsibilities are to: Provide information about [...] you have any questions. documented in this encounterMount Carmel Health SystemMobibao Technology [facility] HospitalSawfqp19-19-6745 History of Present illness Narrative* Stephanie Berger MD PhD - 01/17/2024 4:00 PM EDT [facility] [address] [facility] [address] SUBJECTIVE: Patient ID (1965): Jose Alberto Saleem [...] Hypertension Kidney stone Kidney stones Myocardial infarction ([facility]) 2013 5 stents Visual impairment Past Surgical History: Procedure Laterality Date APPENDECTOMY BIOPSY SALIVARY GLAND FS N/A 09/06/2017 Performed by Stephanie Berger MD at [facility] CARPAL TUNNEL RELEASE right CHOLECYSTECTOMY CORONARY ARTERY BYPASS GRAFT x4 ENDOSCOPIC FUNCTIONAL SINUS SURGERY Bilateral 01/03/2018 Performed by Stephanie Berger MD at [facility] ENDOSCOPIC SURGERY SINUS Bilateral 01/03/2018 Performed by Stephanie Berger MD at [facility] EXCISION MASS UPPER EXTREMITY Right 11/19/2019 Performed by Stephanie Morse DO at [facility] HERNIA REPAIR LAPAROSCOPIC GASTRIC BYPASS LITHOTRIPSY OVARIAN CYST REMOVAL PHACO KELMAN I IMPLANT INTRAOCULAR LENS Left 11/14/2018 Performed by Nisha Stoll MD at [facility] PHACO KELMAN I IMPLANT INTRAOCULAR LENS Right 11/05/2018 Performed by Nisha Stoll MD at [facility] RELEASE CARPAL TUNNEL Right 01/11/2022 Performed by Stephanie Morse DO at [facility] RELEASE CARPAL TUNNEL [place] CPT 17422 Left 07/19/2022 Performed by Stephanie Morse DO at [facility] RESECTION SUBMUCOSAL Bilateral 09/06/2017 Performed by Stephanie Berger MD at [facility] SEPTOPLASTY SEPTOPLASTY N/A 09/06/2017 Performed by Stephanie Berger MD at [facility] STENT INSERTION LACRIMAL DUCT EYE Right 09/06/2017 Performed by Stephanie Berger MD at [facility] URETERAL STENT PLACEMENT Family History Problem Relation [...] tablets (6.25 mg total) by mouth daily. wlcolhgm-jivg-UF-calcium &mins (THERAGRAN-M) 9 mg iron-400 mcg tablet [...] day. (Patient not taking:Reported on 01/17/2024) sod yxrqf-ogovbe-roeobg bottle (NEILMED SINUS RINSE COMPLETE) packet with [...] this chart were generated using voice recognition [employer] dictation software. Although every effort was made to ensure the accuracy of this automated servicer, some errors in servicer may have occurred. documented in this encounterMount Carmel Health SystemMobibao Technology [facility] HospitalWvxuts60-11-2409 History of Present illness Narrative* Celso Garibay, [...] has a history of remote CABG, remote MD, remote PCI's before and after her CABG [...] Assessment/Plan 1. Atherosclerosis of coronary artery of quechan heart without angina pectoris, unspecified vessel or lesion type 2. History of coronary artery bypass graft 3. Ischemic cardiomyopathy 4. Essential hypertension, benign documented in this encounterAvita [facility] System Work Phone: 1(271) 767-655511-14-2023 Instructions* Patient Instructions* Ej Braswell MA - [...] time of your visit. documented in this encounterAvita Health System Work Phone: 1(138) 355-504709-18-2023 Hospital Discharge instructions* Discharge Instructions* Lissa Ocasio [...] call if excessive. Call the office at [phone] ([place]) [phone] ([place]) for an appointment in 2 weeks. documented in [facility] History of Present illness Narrative* [...] pre-opvisit with Dr. Tripathi. documented in this encounterS[facility] Evaluation note* Encounter Date Diagnosis Assessment Notes Treatment Notes Treatment Clinical Notes Nov, Elevated liver function tests (I CD-10 - R94.5) [facility] Other [facility]-02-[facility]23 [facility] Evaluation note* Encounter Date Diagnosis Assessment Notes Treatment Notes Treatment Clinical Notes Oct, Abdominal pain (ICD-10 - R10.9) Oct,ommon bile duct dilatation (ICD-10 - K83.8) Oct,Elevated liver enzymes (ICD-10 - R74.8) Oct,onstipation (ICD-10 - K59.00)Colonoscopy Start Miralax daily after colonoscopy. Titration dosing discussed with patient. Oct,olon cancer screening (ICD-10 - Z12.11) [facility] Other 01-04-2023 NotePROGRESS NOTE NOTE DATE: 10/04/2022 CHIEF COMPLAINT: Abdominal pain. HISTORY OF PRESENT ILLNESS: The patient is a 57-year-old female with a history of dyslipidemia and gastric bypass surgery, who has been having increasing abdominal pain and flank pain. She was seen yesterday at the [facility] for epigastric and upper abdominal [...] DVT Prophylaxis: Lovenox. DISPOSITION: Home when medically stable.[facility]09-02-2022 Hospital Discharge instructions Patient Education 06/02/2022 08:51:52 Kidney Stones, Fyau-ve-Cdri Kidney Stones Kidney stones are rock-like masses [...] Follow these instructions at home: Medicines Take bzrl-ffv-polyqzm and prescription medicines only as told by [...] 03/05/2009 Document Revised: 02/03/2020 Document Reviewed: 02/03/2020 [employer] Patient Education 2020 [employer]. Follow Up Care 05/27/2021 09:10:08 With:LORENA STRAUSS, Santiago Guzman, URL Address: [address] [place] [address]- When: Unknown [facility] evaluation + Plan note Future Appointments Appointment Date:06/01/2023 08:00:00 AM Scheduled Provider:Santiago CARRILLO MD Location:[facility] Appointment Type:URO Office Visit [facility] evaluation + Plan note Future Appointments Appointment Date:04/10/2024 03:00:00 PM Scheduled Provider:JENNIFER MARTINO PA-C Location:[facility] Appointment Type:URO Office Visit [facility] evaluation + Plan note Future Scheduled Tests Radiology* XR Abdomen 1 View 08/05/[address] [facility] evaluation note* Diagnosis Women's annual routine gynecological examination documented in this encounter [facility] HospitalME[facility] Work Phone: evaluation noteNo assessment information [facility] Work Phone: Evaluation noteNo InformationNopemiscot memorial health systems Chef Surfing Other Evaluation note* Diagnosis Post-menopausal bleeding Postmenopausal bleeding Inclusion cyst Sebaceous cyst documented in this encounter [facility] HEALTHEvaluation note* Diagnosis Atherosclerosis of coronary artery of quechan heart without angina pectoris, unspecified vessel or lesion type 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 Ischemic cardiomyopathy Other specified forms of chronic ischemic heart disease Essential hypertension, benign documented in this encounter [facility] Work Phone: Evaluation note* Diagnosis Atherosclerosis of coronary artery of quechan heart without angina pectoris, unspecified vessel or lesion type 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 Essential hypertension, benign Hyperlipidemia, unspecified hyperlipidemia type Acute pancreatitis, unspecified complication status, unspecified pancreatitis type ([facility]) documented in this encounter [facility] Work Phone: Evaluation note* Diagnosis 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 S/P PTCA (percutaneous transluminal coronary angioplasty) Postsurgical percutaneous transluminal coronary angioplasty status 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 Ischemic cardiomyopathy Other specified forms of chronic ischemic heart disease Essential hypertension Unspecified essential hypertension Mixed hyperlipidemia BMI 30.0-30.9,adult Statin intolerance documented in this encounter [facility] Work Phone: Evaluation note* Diagnosis Dry nose- [...] of wrist, right documented in this encounter [facility] HealthcareEvaluation note* Diagnosis Right wrist pain- [...] HealthcareHistory and physical note Author Evert Bruno [facility] November 01, 2022 12:40pmNote Date/TimeFebruary 2022 12:40pm[place] [address] Gastroenterology H&P Signed Patient: Jose Alberto Saleem MR#: [id number] : 1965 Acct:[id number] Age/Sex: 57 / F Adm Date: 3 Loc: Room: Type: [facility] Attending Dr: Evret Bruno MD Copies to: MD Evert Little [...] signed by Evert Bruno MD> 11/01/22 1240 [facility] Work Phone: History and physical note Author Evert Bruno [facility] November 02, 2022 2:14pmNote Date/TimeFebruary 2022 2:14pmWilliam[place] [address] Gastroenterology H&P Signed Patient: Jose Alberto Saleem MR#: [id number] : 1965 Acct:[id number] Age/Sex: 57 / F Adm Date: 3 Loc: Room: Type: [facility] Attending Dr: Evert Bruno MD Copies [...] signed by Evert Bruno MD> 11/02/22 1414 [facility] Work Phone: History general Narrative - Reported* Type Description Date Medical History impaired fasting glucose Medical Historyheart disease, MD stents, CABGMedical HistoryHypertensionMedical HistoryhyperlipidemiaMedical Historynut cracker esophogusSurgical HistoryCABG remote historySurgical Historygastric [id number] Historymultiple kidney stones removedSurgical HistoryappendectomySurgical Historycyst on ovarian removedSurgical Historybilateral carpe tunnel [id number] History cholecystectomyHospitalization Historysee surgical hx [facility] Other Hospital course Narrative No data available for this section [facility] Hospital Discharge instructions Additional Instructions DISCHARGE [...] problems. -Follow up with PCP. -Office number [phone]. [facility] Work Phone: Hospital Discharge instructions Additional [...] problems. -Follow up with PCP. -Office number [phone]. [facility] Work Phone: Hospital Discharge instructions No data available for this section [facility] InstructionsNot on filedocumented in this encounter ProMblinkbox SystemInstructionsNot on filedocumented in this encounter Pro[employer]active CallidusCloud SystemInstructionsNot on filedocumented in this encounter [facility] SystemProgress note No data available for this section [facility] reason for referral (narrative)* Consultation (Routine) - AuthorizedSpecialtyDiagnoses / ProceduresReferred By ContactReferred To ContactCardiology Diagnoses Atherosclerosis of coronary artery of quechan heart without angina pectoris, unspecified vessel or lesion type History of coronary artery bypass graft Procedures Follow Up In Cardiology Celso Garibay DO [address] [place] [address], [address] [address] Celso Garibay DO [address] [facility] 2, [address] [address] Referral IDStatusReasonStart DateExpiration DateVisits RequestedVisits [id number]/202311/13/202411 [facility] Work Phone: Reason for visit Narrative* Other Medical (Routine) - ClosedSpecialtyDiagnoses / ProceduresReferred By ContactReferred To Contact Neurology Diagnoses Arm weakness Numbness Arm pain, right Ulnar neuropathy of right upper extremity Procedures EMG AND NERVE CONDUCTION STUDY Raji Byrd, GENTRY [address] [place] [address] Phone: tel: fax: Rae Louie MD [address] [address] Phone: tel: fax: Referral IDStatusReasonStart DateExpiration DateVisits RequestedVisits [id number]/[id number] [facility] Summary Purpose Family History No [...] of AttorneyTypeDate RecordedPatient RepresentativeExplanationACP- Advance DirectiveACP-Power of Statistical Technician Advance Directive Response Recorded Date/ Time [...] She has known history of prior inferior MD, prior stenting, priorthree-vessel CABG, subsequent PCI of [...] adverse reactions to other medications, hypotension. * [place] [employer] is class I * Recommendations, [...] She has a history of prior inferior MD, prior PCI with subsequent three-vessel CABG and [...] She has a history of prior inferior MD, prior PCI with subsequent three-vessel CABG and [...] and content) DATE CREATED AUTHOR 03/26/2018 [facility] DATE CREATED AUTHOR AUTHOR'S ORGANIZ ATION 03/26/2018 [facility] DATE CREATED AUTHOR AUTHOR'S ORGANIZ ATION 08/02/2022 [facility] DATE CREATED AUTHOR AUTHOR'S ORGANIZ ATION 08/17/2022 [employer] DATE CREATED AUTHOR AUTHOR'S ORGANIZ ATION 10/17/2022 [facility] DATE CREATED AUTHOR AUTHOR'S ORGANIZ ATION 06/23/2023 [facility] DATE CREATED AUTHOR AUTHOR'S ORGANIZ ATION 07/16/2023 [facility] DATE CREATED AUTHOR AUTHOR'S ORGANIZ ATION 01/19/2024 [facility] DATE CREATED AUTHOR AUTHOR'S ORGANIZ ATION 03/07/2024 [facility] DATE CREATED AUTHOR AUTHOR'S ORGANIZ ATION 09/15/2024 [facility] DATE CREATED AUTHOR AUTHOR'S ORGANIZ ATION 10/16/2024 [facility] DATE CREATED AUTHOR AUTHOR'S ORGANIZ ATION 01/22/2025 [facility] DATE CREATED AUTHOR AUTHOR'S ORGANIZ ATION 06/15/2025 [facility] DATE CREATED AUTHOR AUTHOR'S ORGANIZ ATION 06/24/2025 [facility] DATE CREATED AUTHOR AUTHOR'S ORGANIZ ATION 07/25/2025 [facility] Care Teams (unrecognized sec tion and [...] DateEnd Date Ashley Grigsby MD [address] [place] [address] PCP - GeneralFamily Mvyavner17/19/19Team MemberRelationshipSpecialtyStart Date End Date Ashley Grigsby MD [address] [place] [address] PCP - GeneralFamily Ngxcqfma47/19/19Team MemberRelationshipSpecialtyStart Date End Date Ashley Grigsby MD [address] [place] [address] PCP - Ycachxq24/17/21Team MemberRelationshipSpecialtyStart DateEnd Date Ashley Grigsby MD [address] [place] [address] PCP - Mftnmaq30/17/21Team MemberRelationshipSpecialtyStart DateEnd Date Ashley Grigsby MD [address] [place] [address] PCP - Chsqfhx86/17/21 Anita Hammonds, RN Care ManagerCase Fapngizrez24/22/24Team MemberRelationshipSpecialtyStart DateEnd Date Ashley Grigsby MD [address] [place] [address] PCP - General02/22/17Team MemberRelationshipSpecialtyStart DateEnd Date Ashley Grigsby MD [address] [place] [phone] PCP - General02/22/17Team MemberRelationshipSpecialtyStart DateEnd Date Ashley Grigsby MD [address] [place] [address] PCP - General02/22/17Team MemberRelationshipSpecialtyStart DateEnd Date Ashley Grigsby MD [address] [place] [phone] PCP - GeneralFamily Sslhessd31/14/23Team MemberRelationshipSpecialtyStart Date End Date Ashley Grigsby MD [address] [facility] [place] [address] PCP - GeneralFamily Rrycplol02/14/23Team MemberRelationshipSpecialtyStart Date End Date Ashley Grigsby MD [address] [facility] [place] [address] PCP - GeneralFamily Medicine02/13/25Team MemberRelationshipSpecialtyStart DateEnd Date Ashley Grigsby MD [address] [place] [facility] [place] [address] PCP - GeneralFamily Medicine02/13/25Team MemberRelationshipSpecialtyStart DateEnd Date Ashley Grigsby MD [address] [place] [facility] [place] [address] PCP - GeneralFamily Medicine02/13/25Team MemberRelationshipSpecialtyStart DateEnd Date Ashley Grigsby MD [address] [facility] [place] [address] PCP - GeneralFamily Medicine02/13/25Team MemberRelationshipSpecialtyStart DateEnd Date Ashley Grigsby MD [address] [facility] [place] [address] PCP - GeneralFamily Medicine02/13/25Team MemberRelationshipSpecialtyStart DateEnd Date Ashley Grigsby MD [address] [place] [address] PCP - GeneralFamily Medicine02/13/25 REASON FOR VISIT (unrecogniz ed section and content) SpecialtyDiagnoses / ProceduresReferred By ContactReferred To Contact Diagnoses Post-menopausal bleeding Inclusion cyst Post-menopausal bleeding [N95.0] Inclusion cyst [L72.0] Procedures VT HYSTEROSCOPY BX ENDOMETRIUM&/POLYPC W/WO D&C VT DESTRUCTION BENIGN LESIONS UP TO 14 DILATATION AND CURETTAGE HYSTEROSCOPY-REMOVAL OF INCLUSION CYST Gaby Phillips, DO [address] [place] [address] [facility] [address] [place] [address] Referral IDStatusReasonStyampa DateExpiration DateVisits RequestedVisits [id number] [id number] / Procedures Referred By ContactReferred To ContactCardiology Diagnoses Atherosclerosis of coronary artery of quechan heart without angina pectoris, unspecified vessel or lesion type History of coronary artery bypass graft Procedures Follow Up In Cardiology Celso Garibay, [address] [place] [address], [address] [address] Phone: tel: fax: Celso Garibay, DO [address] [facility], [address] [address] Phone: tel: fax: Referral IDStatusReasonCo[place] DateExpiration DateVisits RequestedVisits [id number]-kdRTGY discharge 08/22ReasonCommentsMed RefillReasonCommentsPainReasonCommentsPain Ordered Prescriptions (unrec ognized [...] BE BASED ON THE PRIMARY CLINICAL RECORDS. [employer] [facility]. provides no warranty or guarantee of the accuracy or completeness of information in this document.
== END 2025-07-29 17:07 | disposition home or self-care (01) ==
LOC: FHNEUROLOG 17:06
PROVIDERS: PCP Family Medicine; Visit Provider Psychiatry & Neurology Neurology
DX: G47.33 Obstructive sleep apnea (adult) (pediatric) (principal)
CPT/HCPCS: G0463